=== PATIENT | female | born 1965 | race Caucasian/White ===

== ENCOUNTER 2017-04-16 15:15 | Outpatient (CLI) | payer MEDICARE ==
[~2017-04-16 15:15] MED LIST: ALBU18HF2 INH; ALBU2.5V4 NEB; ALPR1TAB2 PO; AMOX1TAB11 PO; AMPH20CA PO; ASPI-586 PO; BACL10TA PO; BACL20TA PO; BENZ0.5T3 PO; BSP10T; BSP10T PO; BUSP15TA60 PO; BUTA1TAB9 PO; CALC-656 PO; CALC-676 PO; CALC-904 PO; CALC600T PO; CELE200C PO; CETI10TA17 PO; CLON0.1T PO; DEXL60CA PO; DICY10CA12 PO; DICY20TA10 PO; DULO30CA PO; DULO60CA6 PO; ESOM40CA52 PO; FAMO-119 PO; FLUT16SP22 NS; FLUT1AER INH; FOLI-74 PO; GABA300C PO; GABA600T2 PO; GABA800T2 PO; GBPN100C PO; HYDR-3812 PO; HYDR-3816 PO; HYDR118S PO; IBUP-1773 PO; INSU100I10 SQ; INSU100I29 SC; INSU100V6; L.AC1CAP6 PO; LAMO100T PO; LAMO100T69 PO; LCT30U PO; LISI-594 PO; LISI10TA2 PO; LISI30TA5 PO; LORA2TAB PO; LOXA10CA PO; MAGN1TAB31 PO; MAGN400T39 PO; METF1000 PO; METO-333 PO; METO50TA15 PO; MONT10TA24 PO; MULT-35 PO; MULT-608 PO; MULT-963 PO; NF-ESOM40C PO; NF-ESTR1.5 PO; NFMET1000 PO; ONDA-43 PO; PANT40TA2 PO; POLY255P PO; PRD10T PO; PROP20TA5 PO; PRV20T PO; RT-ALBUINH IH; SERT50TA2 PO; SIMV10TA3 PO; SIMV20TA PO; SUCR1TAB PO; SUCR1TAB36 PO; TIOT18CA IH; TRAM50TA2 PO; TRAZ100T92 PO; TRH2T PO; UMEC62.5 INH; [UNRECOGNIZED DRUG - CODE] PO
== END 2017-04-16 17:45 | disposition home or self-care (01) ==
LOC: SLEEP 15:15
PROVIDERS: ATTEND Nurse Practitioner Community Health
DX: G47.33 Obstructive sleep apnea (adult) (pediatric) (principal)

== ENCOUNTER → 2017-04-26 | Outpatient (CLI) | payer MEDICARE | LOC: CARD 08:36 | PROVIDERS: ATTEND Internal Medicine Cardiovascular Disease | DX: R07.9 Chest pain, unspecified (principal); I10 Essential (primary) hypertension; J44.9 Chronic obstructive pulmonary disease, unspecified; E11.9 Type 2 diabetes mellitus without complications; F43.10 Post-traumatic stress disorder, unspecified | CPT/HCPCS: 93306 ==

== ENCOUNTER 2017-05-15 19:40 | Outpatient (CLI) | payer MEDICARE ==
[~2017-05-15 19:40] MED LIST changes: +ACHD5005 PO; -HYDR-3812 PO
== END 2017-05-16 06:31 | disposition home or self-care (01) ==
LOC: SLEEP 19:40
PROVIDERS: ATTEND Nurse Practitioner
DX: G47.10 Hypersomnia, unspecified (principal); G47.36 Sleep related hypoventilation in conditions classified elsewhere
CPT/HCPCS: 95810

== ENCOUNTER → 2017-05-24 | Outpatient (CLI) | payer MEDICARE ==
[~2017-05-24] VITALS: Ht 165.1 cm; Wt 50.8 kg
[~2017-05-24] MED LIST changes: +CATHETER FLUSH 10 ML SYR IV PRN; +REGADENOSON 0.4 MG/5 ML SYR (LEXISCAN) IV ONE; +meTOprolol 5 MG/5 ML (LOPRESSOR) VIAL IV ONE; +meTOprolol 5 MG/5 ML (LOPRESSOR) VIAL ONE
[2017-05-24 08:55] VITALS: BP 183/93
--- NOTE | 2017-05-24 12:29 | STRESS TEST ---
DATE OF SERVICE: 05/24/2017 LEXISCAN MYOVIEW STRESS TEST REPORT Baseline heart rate is 103. Baseline blood pressure 183/93. Baseline EKG is sinus rhythm with no ischemic changes. SUMMARY: The patient was injected with 10.61 mCi of technetium-99 Myoview and the resting images were obtained. Then, the patient received 0.4 mg of Lexiscan followed by 29.6 mCi of technetium-99 Myoview. Throughout the test, there were no EKG changes. The patient continued to be slightly tachycardic, required 5 mg of IV Lopressor injection after the test. The resting and stress images were reviewed and compared in the short axis, horizontal long axis, and vertical long axis views. Review of the images showed breast attenuation with mild decreased uptake at the mid to apical anteroseptum, which appeared to be fixed. No significant ischemia was noted. SSS is 8, SDS 1, TID value 1.14. On the gated images, the left ventricle appeared to be in normal size with mild hypokinesia at the anteroseptum. Calculated ejection fraction 65%. CONCLUSION: 1. The patient tolerated Lexiscan well. 2. Breast attenuation with fixed defect at the mid to apical anteroseptum, no significant ischemia was noted. 3. Normal left ventricular size with mild hypokinesia at the anteroseptum otherwise contractility is normal. Calculated ejection fraction 65%. Job ID: [id number] DocumentID: [id number] Dictated Date: 05/24/2017 10:29:18 Triage Register Nurse Date: 05/24/2017 12:22:43 Dictated By: LEO WALTON MD
== END ==
LOC: CARD 07:18
PROVIDERS: ATTEND Internal Medicine Cardiovascular Disease
DX: R07.9 Chest pain, unspecified (principal); I10 Essential (primary) hypertension; J44.9 Chronic obstructive pulmonary disease, unspecified; E11.9 Type 2 diabetes mellitus without complications; F43.10 Post-traumatic stress disorder, unspecified
CPT/HCPCS: 78452; 93017

== ENCOUNTER 2017-07-20 08:43 | Emergency (ER) | payer MEDICARE ==
[~2017-07-20] VITALS: Ht 160 cm; Wt 47.6 kg
[~2017-07-20 08:43] MED LIST changes: -CATHETER FLUSH 10 ML SYR IV PRN; +HYDR-34 PO; -HYDR-3816 PO; -REGADENOSON 0.4 MG/5 ML SYR (LEXISCAN) IV ONE; -meTOprolol 5 MG/5 ML (LOPRESSOR) VIAL IV ONE; -meTOprolol 5 MG/5 ML (LOPRESSOR) VIAL ONE
[2017-07-20] MEDS ORDERED: fentaNYL INJECTION 100 MCG/2 ML AMP IVP ONE (09:45)
[2017-07-20] MEDS ORDERED: ONDANSETRON 4 MG/2 ML (SDV) Z0FRAN IVP ONE (09:45)
[2017-07-20 10:19] LABS: BILIRUBIN,URINE NEGATIVE (NEGATIVE); CLARITY,URINE CLEAR; COLOR,URINE YELLOW; GLUCOSE, URINE (UA) NEGATIVE (NEGATIVE); KETONES,URINE NEGATIVE (NEGATIVE); LEUKOCYTE ESTERASE ,URINE NEGATIVE (NEGATIVE); NITRITE,URINE NEGATIVE (NEGATIVE); PH,URINE 8 (5-9); PROTEIN,URINE NEGATIVE (NEGATIVE); UROBILINOGEN,URINE NORMAL (NORMAL)
[2017-07-20 10:22] LABS: BASOPHILS % (AUTO) 0 % (0-10); EOSINOPHILS % (AUTO) 0 % (0-10); HEMATOCRIT 46 % (35-52); HEMOGLOBIN 16.7 G/DL (11.5-16.0); LYMPHOCYTES % (AUTO) 21 % (12-44); MEAN CORPUSCULAR HEMOGLOBIN 32 PG (25-34); MEAN CORPUSCULAR HGB CONC 36 G/DL (32-36); MEAN CORPUSCULAR VOLUME 88 FL (80-99); MEAN PLATELET VOLUME 9.8 FL (7.4-10.4); MONOCYTES # (AUTO) 0.5 X 10^3 (0.0-1.0); MONOCYTES % (AUTO) 5 % (0-12); NEUTROPHILS # (AUTO) 7.2 X 10^3 (1.8-7.8); NEUTROPHILS % (AUTO) 73 % (42-75); PLATELET COUNT 265 10^3/uL (130-400); RED BLOOD COUNT 5.24 10^6/uL (4.35-5.85); RED CELL DISTRIBUTION WIDTH 13.6 % (10.0-14.5); WHITE BLOOD COUNT 9.8 10^3/uL (4.3-11.0)
[2017-07-20 10:29] LABS: BACTERIA,URINE NEGATIVE /HPF; RBC,URINE RARE /HPF
[2017-07-20 10:42] LABS: ALANINE AMINOTRANSFERASE 34 U/L (0-55); ALBUMIN 4.9 GM/DL (3.2-4.5); ALKALINE PHOSPHATASE 56 U/L (40-136); BILIRUBIN,TOTAL 0.2 MG/DL (0.1-1.0); BUN/CREATININE RATIO 13; CALCIUM 10.2 MG/DL (8.5-10.1); CARBON DIOXIDE 26 MMOL/L (21-32); CHLORIDE 97 MMOL/L (98-107); GFR ESTIMATED > 60; GLUCOSE 97 MG/DL (70-105); LIPASE 25 U/L (8-78); POTASSIUM 5.6 MMOL/L (3.6-5.0); SODIUM 132 MMOL/L (135-145); TOTAL PROTEIN 7.8 GM/DL (6.4-8.2)
[2017-07-20] MEDS ORDERED: NS IV 1000 ML 1,000 ML IV SCH (10:46)
--- NOTE | 2017-07-20 11:39 | ED Abdominal Pain ---
General Chief Complaint: Abdominal/GI Problems Stated Complaint: STOMACH CRAMPS Nursing Triage Note: AMB TO ROOM C/O ABD CRAMPING ONSET THIS AM. NO VOMITNG OR DIARRHEA. Sepsis Screen: No Definite Risk Source of Information: Patient Exam Limitations: No Limitations History of Present Illness Date Seen by Provider: Jul 20, 2017 Time Seen by Provider: 09:17 Initial Comments This 51-year-old woman presents to the emergency room with abdominal pain and cramping since about 04:00. She has had pain in the left upper quadrant for about a week that worsens with eating and radiates to the epigastrium after eating. She has a known history of gastritis. Pain became much more intense after 04:00. She ate some Cheerios and that worsened her pain. She has nausea without vomiting. Her last bowel movement was this morning and was loose. She specifically states that coffee worsens her pain. She denies any drug or alcohol use but does smoke tobacco. She reports gastritis was diagnosed by EGD in October of last year. Her surgeon is Dr. Garay and her primary care provider is Zeyad Gavin. Allergies and Home Medications Allergies Coded Allergies: Penicillins (Verified Allergy, Unknown, 03/12/17) cefdinir (Verified Allergy, Unknown, 03/12/17) diphenhydramine (Verified Allergy, Unknown, 03/12/17) latex (Verified Allergy, Unknown, 03/12/17) propoxyphene napsylate (Unverified Allergy, Unknown, 07/06/12) Home Medications Albuterol Sulfate 2.5 Mg/3 Ml Vial.neb, 2.5 MG NEB Q4H PRN for SHORTNESS OF BREATH, (Reported) Albuterol Sulfate 18 Gm Hfa.aer.ad, 2 PUFF INH Q4H PRN for SHORTNESS OF BREATH, (Reported) Aspirin 81 Mg Tablet.dr, 81 MG PO DAILY Prescribed by: CÉSAR IZQUIERDO on 03/13/17 1118 Baclofen 20 Mg Tablet, 20 MG PO 0800,1500,2100, (Reported) Benztropine Mesylate 0.5 Mg Tablet, 0.5 MG PO 0800,1600, (Reported) Buspirone HCl 15 Mg Tablet, 15 MG PO 0800,1500,2100, (Reported) Butalb/Acetaminophen/Caffeine 1 Each Tablet, 1 TAB PO Q6H PRN for HEADACHE, ( Reported) Calcium Carbonate/Vitamin D3 1 Each Tablet, 1 TAB PO DAILY, (Reported) Cetirizine HCl 10 Mg Tablet, 10 MG PO DAILY, (Reported) Clonidine HCl 0.1 Mg Tablet, 0.1 MG PO 0800,1500,2100, (Reported) Dextroamphetamine/Amphetamine 20 Mg Cap.er.24h, 20 MG PO DAILY, (Reported) Dicyclomine HCl 20 Mg Tablet, 20 MG PO QID, (Reported) Esomeprazole Magnesium 40 Mg Capsule.dr, 40 MG PO DAILY, (Reported) Fluticasone Propionate 16 Gm [place].susp, 2 SPRAY NS DAILY, (Reported) Fluticasone/Vilanterol 1 Each Blst.w.dev, 1 PUFF INH DAILY, (Reported) Folic Acid/Mv,Fe,Other Min 1 Each Tablet, 1 TAB PO DAILY, (Reported) Gabapentin 800 Mg Tablet, 800 MG PO 0800,1500,2100, (Reported) Hydrocodone Bit/Acetaminophen 1 Each Tablet, 1 TAB PO TID PRN for PAIN-MODERATE, (Reported) Ibuprofen 600 Mg Tablet, 600 MG PO 0800,1400,1800, (Reported) Insulin Detemir 100 Unit/1 Ml Insuln.pen, 7 UNITS SC HS, (Reported) L.acidoph & Paracasei,B.lactis 1 Each Capsule, 1 CAP PO DAILY, (Reported) Lamotrigine 100 Mg Tablet, 100 MG PO BID, (Reported) Lisinopril 30 Mg Tablet, 30 MG PO DAILY, (Reported) Lorazepam 2 Mg Tablet, 2 MG PO 0800,1200,1600, (Reported) Loxapine Succinate 10 Mg Capsule, 10 MG PO BID, (Reported) Magnesium Carbonate/Al Hydrox 1 Each Tab.chew, 4 TAB.CHEW PO ACHS, (Reported) Magnesium Oxide 400 Mg Tablet, 400 MG PO DAILY, (Reported) Metformin HCl 1,000 Mg Tablet, 1,000 MG PO BID WITH MEALS, (Reported) Metoprolol Tartrate 50 Mg Tablet, 50 MG PO BID Prescribed by: CÉSAR IZQUIERDO on 03/13/17 1118 Montelukast Sodium 10 Mg Tablet, 10 MG PO HS, (Reported) Polyethylene Glycol 3350 255 Gm Powder, 17 GM PO DAILY, (Reported) Simvastatin 10 Mg Tablet, 10 MG PO 1800, (Reported) Trazodone HCl 100 Mg Tablet, 100 MG PO HS, (Reported) Umeclidinium [place] 62.5 Mcg Blst.w.dev, 1 PUFF INH DAILY, (Reported) Patient Home Medication List Home Medication List Reviewed: Yes Review of Systems Constitutional: no symptoms reported EENTM: No Symptoms Reported Respiratory: No Symptoms Reported Cardiovascular: No Symptoms Reported Gastrointestinal: See HPI Genitourinary: No Symptoms Reported Musculoskeletal: no symptoms reported Skin: no symptoms reported Psychiatric/Neurological: No Symptoms Reported Endocrine: No Symptoms Reported Past Yshadfl-Dldvdn-Sifrje Hx Patient Social History Alcohol Use: Denies Use Recreational Drug Use: No (SMOKES 1 PPD) Smoking Status: Current Everyday Smoker Type Used: Cigarettes Recent Foreign Travel: No Contact w/Someone Who Travel: No Recent Infectious Disease Expo: No Recent Hopitalizations: No Immunizations Up To Date Tetanus Booster (TDap): Unknown Date of Pneumonia Vaccine: Jun 26, 2012 Date of Influenza Vaccine: Jul 07, 2012 Seasonal Allergies Seasonal Allergies: Yes Surgeries History of Surgeries: Yes (c/s x3, bilat knee scope, breast bx, bilat ankle sx , right foot fx, ) Surgeries: Abdominal (EGD and colonoscopy), Section, Hysterectomy, Orthopedic (back and neck fusions with hardware, bilateral knees, right foot) Respiratory History of Respiratory Disorde: Yes Respiratory Disorders: Asthma, Chronic Bronchitis, COPD Currently Using CPAP: No Currently Using BIPAP: No Cardiovascular History of Cardiac Disorders: Yes Cardiac Disorders: High Cholesterol, Hypertension Neurological History of Neurological Disord: Yes (neuropathy hands/feet, fibromyalgia, Hayes' s palsy) Neurological Disorders: Neuropathy 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 System Hx 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: No Female 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: 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 Genitourinary History of Genitourinary Disor: No Gastrointestinal History of Gastrointestinal Di: Yes (gastritis ) Gastrointestinal Disorders: Abdominal Hernia, Gastroesophageal Reflux, Irritable Bowel Musculoskeletal History of Musculoskeletal Dis: Yes Musculoskeletal Disorders: Degenerate Disk Disease, Osteoporosis, Arthritis, Fibromyalgia, Rheumatoid Arthritis Endocrine History of Endocrine Disorders: Yes Endocrine Disorders: Diabetes, Insulin dep HEENT History of HEENT Disorders: Yes HEENT Disorders: Cataract Loss of Vision: Denies Hearing Impairment: Hard of Hearing Cancer History of Cancer: No Psychosocial History of Psychiatric Problem: Yes Behavioral Health Disorders: ADD/ADHD, Anxiety, Bipolar, Depression Integumentary History of Skin or Integumenta: No Blood Transfusions History of Blood Disorders: No Family Medical History Significant Family History: No Pertinent Family Hx Physical Exam Vital Signs VS - Last 72 Hours, by Label 07/20/17 08:48 Temp 98.0 Pulse 80 Resp 18 B/P (MAP) 152/87 (108) Pulse Ox 98 Capillary Refill : Less Than 3 Seconds General Appearance: WD/WN, no apparent distress, thin HEENT: PERRL/EOMI, normal ENT inspection Neck: normal inspection Respiratory: lungs clear, normal breath sounds, no respiratory distress, no accessory muscle use Cardiovascular: regular rate, rhythm, no edema, no murmur Gastrointestinal: normal bowel sounds, soft, distended, tenderness (diffuse be most prominent on the left upper quadrant and suprapubic regions) Extremities: normal inspection, no pedal edema 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, no motor/sensory deficits, alert, normal mood/affect, oriented x 3 Skin: normal color, warm/dry Progress/Results/Core Measures Results/Orders Lab Results Laboratory Tests Test 07/20/17 09:42 07/20/17 10:10 Range/Units Urine Color YELLOW Urine Clarity CLEAR Urine pH 8 5-9 Urine Specific [place] 1.015 L 1.016-1.022 Urine Protein NEGATIVE NEGATIVE Urine Glucose (UA) NEGATIVE NEGATIVE Urine Ketones NEGATIVE NEGATIVE Urine Nitrite NEGATIVE NEGATIVE Urine Bilirubin NEGATIVE NEGATIVE Urine Urobilinogen NORMAL NORMAL MG/DL Urine Leukocyte Esterase NEGATIVE NEGATIVE Urine RBC (Auto) NEGATIVE NEGATIVE Urine RBC RARE /HPF Urine WBC NONE /HPF Urine Squamous Epithelial Cells 5-10 /HPF Urine Crystals NONE /LPF Urine Bacteria NEGATIVE /HPF Urine Casts NONE /LPF Urine Mucus NEGATIVE /LPF Urine Culture Indicated NO White Blood Count 9.8 4.3-11.0 10^3/uL Red Blood Count 5.24 4.35-5.85 10^6/uL Hemoglobin 16.7 H 11.5-16.0 G/DL Hematocrit 46 35-52 % Mean Corpuscular Volume 88 80-99 FL Mean Corpuscular Hemoglobin 32 25-34 PG Mean Corpuscular Hemoglobin Concent 36 32-36 G/DL Red Cell Distribution Width 13.6 10.0-14.5 % Platelet Count 265 130-400 10^3/uL Mean Platelet Volume 9.8 7.4-10.4 FL Neutrophils (%) (Auto) 73 42-75 % Lymphocytes (%) (Auto) 21 12-44 % Monocytes (%) (Auto) 5 0-12 % Eosinophils (%) (Auto) 0 0-10 % Basophils (%) (Auto) 0 0-10 % Neutrophils # (Auto) 7.2 1.8-7.8 X 10^3 Lymphocytes # (Auto) 2.0 1.0-4.0 X 10^3 Monocytes # (Auto) 0.5 0.0-1.0 X 10^3 Eosinophils # (Auto) 0.0 0.0-0.3 10^3/uL Basophils # (Auto) 0.0 0.0-0.1 10^3/uL Sodium Level 132 L 135-145 MMOL/L Potassium Level 5.6 H 3.6-5.0 MMOL/L Chloride Level 97 L 98-107 MMOL/L Carbon Dioxide Level 26 21-32 MMOL/L Anion Gap 9 5-14 MMOL/L Blood Urea Nitrogen 8 7-18 MG/DL Creatinine 0.60 0.60-1.30 MG/DL Estimat Glomerular Filtration Rate > 60 BUN/Creatinine Ratio 13 Glucose Level 97 70-105 MG/DL Calcium Level 10.2 H 8.5-10.1 MG/DL Total Bilirubin 0.2 0.1-1.0 MG/DL Aspartate Amino Transf (AST/SGOT) 28 5-34 U/L Alanine Aminotransferase (ALT/SGPT) 34 0-55 U/L Alkaline Phosphatase 56 40-136 U/L C-Reactive Protein High Sensitivity 0.03 0.00-0.50 MG/DL Total Protein 7.8 6.4-8.2 GM/DL Albumin 4.9 H 3.2-4.5 GM/DL Lipase 25 8-78 U/L My Orders Orders - JOVANY LOU MD Cbc With Automated Diff (07/20/17 09:36) Comprehensive Metabolic Panel (07/20/17 09:36) Hs C Reactive Protein (07/20/17 09:36) Lipase (07/20/17 09:36) Ua Culture If Indicated (07/20/17 09:36) Saline Lock/Iv-Start (07/20/17 09:36) Ondansetron Injection (Zofran Injectio (07/20/17 09:45) Fentanyl Injection (Sublimaze Injection (07/20/17 09:45) Ns Iv 1000 Ml (Sodium Chloride 0.9%) (07/20/17 10:46) Abdomen, Flat & Upright/Decub (07/20/17 10:47) Ketorolac Injection (Toradol Injection) (07/20/17 12:15) Medications Given in ED Current Medications Medications Dose Ordered Sig/Brice Route Start Time Stop Time Status Last Admin Dose Admin Fentanyl Citrate 50 mcg ONCE ONCE IVP 07/20/17 09:45 07/20/17 09:46 DC 07/20/17 10:18 50 MCG Ondansetron HCl 4 mg ONCE ONCE IVP 07/20/17 09:45 07/20/17 09:46 DC 07/20/17 10:18 4 MG Vital Signs/I&O Vital Sign - Last 12Hours 07/20/17 08:48 Temp 98.0 Pulse 80 Resp 18 B/P (MAP) 152/87 (108) Pulse Ox 98 Blood Pressure Mean: 108 Progress Note : Progress Note Based on labs patient was felt to be a little dry. Potassium and calcium were elevated. Sodium was slightly low. She was given a liter of normal saline IV hydration. Pain was initially treated with fentanyl and pain nearly resolved. X-ray suggested constipation. This would fit with her clinical presentation as well. She uses hydrocodone regularly and has for the last 2 years. I suspect she has narcotic induced constipation. She was offered Relistor injection but declined. She prefers to increase her MiraLAX usage to 3 times daily until she produces a good bowel movement. I advised her to reduce her ibuprofen and hydrocodone use is much as possible. Toradol was given prior to dismissal as an alternative to her oral medications for treatment of pain today. Diagnostic Imaging Diagonstic Imaging: Xray Plain Films/CT/US/NM/MRI: abdomen, pelvis Comments X-ray of the abdomen and pelvis viewed by me and report reviewed. See report below: NAME: VERONICA RODRIGUEZ MED REC#: [id number] PT STATUS: REG ER : 1965 PHYSICIAN: JOVANY LOU MD ADMIT DATE: 07/20/17/ER Draft Date of Exam:07/20/17 ABDOMEN, FLAT & UPRIGHT/DECUB INDICATION: Abdominal pain. Supine upright abdominal films are obtained. FINDINGS: Upright view shows no evidence of free air. The abdominal bowel gas pattern is unremarkable. There is prominent stool throughout the colon. There are postop changes with fusion at L5-S1. IMPRESSION: Prominent stool throughout the colon. No overt obstruction or ileus. No evidence of free intraperitoneal air. Dictated on workstation # [id number] Dict: 07/20/17 1146 Trans: 07/20/17 1159 [id number] Interpreted by: LACEY GIL MD Departure Impression Impression: Primary Impression: Constipation Qualified Codes: K59.00 - Constipation, unspecified Additional Impressions: Abdominal pain Qualified Codes: R10.84 - Generalized abdominal pain Hyperkalemia Disposition: HOME, SELF-CARE Condition: Improved Departure-Patient Inst. Decision time for Depature: 12:13 Referrals: [facility] [place]Family) Primary Care Physician Patient Instructions: Acute Abdomen (Belly Pain), Adult (DC), Constipation, Adult (DC) Add. Discharge Instructions: Consume a clear liquid diet only for the remainder of the day and preferably until you produce a couple of good bowel movements. Increase your MiraLAX to 3 doses per day until you produce a couple of good bowel movements. Try to minimize both your ibuprofen and hydrocodone as much as possible. Ibuprofen can irritate your gastritis, and hydrocodone can worsen constipation. Follow- up with your primary care provider as soon as possible. Return to the emergency room if symptoms worsen. After constipation resolves, eat a diet high in fruits, vegetables, whole grains, and other high fiber foods. Avoid excessive meats, cheeses, processed foods, and fast foods as they may worsen constipation. All discharge instructions reviewed with patient and/or family. Voiced understanding. JOVANY LOU MD Jul 20, 2017 11:39
--- NOTE | 2017-07-20 11:59 | Diagnostic Imaging Report ---
INDICATION: Abdominal pain. Supine upright abdominal films are obtained. FINDINGS: Upright view shows no evidence of free air. The abdominal bowel gas pattern is unremarkable. There is prominent stool throughout the colon. There are postop changes with fusion at L5-S1. IMPRESSION: Prominent stool throughout the colon. No overt obstruction or ileus. No evidence of free intraperitoneal air. Dictated by: Dictated on workstation # [id number]
[2017-07-20] MEDS ORDERED: KETOROLAC 30 MG/ML VIAL IVP ONE (12:15)
[2017-07-20 12:40] VITALS: BP 143/78
== END 2017-07-20 12:39 | disposition home or self-care (01) ==
LOC: EDUNIT# 08:43 → ER 08:44
DX: K59.00 Constipation, unspecified (principal); E87.5 Hyperkalemia; F41.9 Anxiety disorder, unspecified; F31.9 Bipolar disorder, unspecified; F90.9 Attention-deficit hyperactivity disorder, unspecified type; E11.40 Type 2 diabetes mellitus with diabetic neuropathy, unspecified; M06.9 Rheumatoid arthritis, unspecified; K21.9 Gastro-esophageal reflux disease without esophagitis; E78.00 Pure hypercholesterolemia, unspecified; I10 Essential (primary) hypertension; J44.9 Chronic obstructive pulmonary disease, unspecified; F17.210 Nicotine dependence, cigarettes, uncomplicated; Z87.59 Personal history of other complications of pregnancy, childbirth and the puerperium; Z79.82 Long term (current) use of aspirin; Z79.4 Long term (current) use of insulin; Z90.710 Acquired absence of both cervix and uterus; Z88.0 Allergy status to penicillin; Z88.1 Allergy status to other antibiotic agents; Z91.040 Latex allergy status
CPT/HCPCS: 36415; 74019; 80053; 81000; 83690; 85025; 86141; 96361; 96374; 96375

== ENCOUNTER → 2017-08-16 | Outpatient (CLI) | payer MEDICARE ==
--- NOTE | 2017-08-16 17:43 | Diagnostic Imaging Report ---
INDICATION: Routine screening. Comparison is made with prior exam from 06/11/2011. The current study was also evaluated with a Computer Aided Detection (CAD) system. FINDINGS: Both breasts demonstrate marked parenchymal heterogeneity and increased density, limiting the sensitivity of mammography. Numerous microcalcifications are scattered throughout both breasts, similar to prior exam and limiting the sensitivity of mammography. There is a biopsy clip in medial aspect of the right breast posterior depth, perhaps owing to prior biopsy. Patient did have a cluster of microcalcifications in the medial right breast on prior study from 2011. There is an increasing cluster in the inferior right breast posterior depth. These are more posterior and more inferior to the biopsy clip. These appear to be more laterally located on the tomographic images. Magnification and ML views are recommended. Exaggerated CC views are also recommended. Left breast appears stable. The axillae are unremarkable. IMPRESSION: Increasing cluster of microcalcifications inferior and posterior right breast which may be laterally located. Magnification, ML and exaggerated CC views are recommended for further evaluation. ACR BI-RADS Category 0: Incomplete. (Needs additional imaging evaluation). Result letter will be mailed to the patient. Note: At least 10% of breast cancer is not imaged by mammography. Dictated by: Dictated on workstation # [id number]
== END ==
LOC: RAD 14:37
PROVIDERS: ATTEND Nurse Practitioner Community Health
DX: Z12.31 Encounter for screening mammogram for malignant neoplasm of breast (principal)
CPT/HCPCS: 77067

== ENCOUNTER → 2017-10-05 | Outpatient (CLI) | payer MEDICARE ==
[~2017-10-05] MED LIST changes: -BENZ0.5T3 PO; +BENZ0.5T42 PO; -METF1000 PO; +METF10002 PO
[2017-10-05 08:02] LABS: ALBUMIN 4.6 GM/DL (3.2-4.5); BILIRUBIN,DIRECT 0.1 MG/DL (0.0-0.3); BILIRUBIN,INDIRECT 0.2 MG/DL; BILIRUBIN,TOTAL 0.3 MG/DL (0.1-1.0); TOTAL PROTEIN 6.9 GM/DL (6.4-8.2)
== END ==
LOC: LAB 07:28
PROVIDERS: ATTEND Family Medicine
DX: R07.9 Chest pain, unspecified (principal); I10 Essential (primary) hypertension; E11.9 Type 2 diabetes mellitus without complications; J44.9 Chronic obstructive pulmonary disease, unspecified; F43.10 Post-traumatic stress disorder, unspecified
CPT/HCPCS: 36415; 80061; 80076

== ENCOUNTER 2017-11-18 06:46 | Emergency (ER) | payer MEDICARE ==
[~2017-11-18] VITALS: Ht 162.6 cm; Wt 49.9 kg
[~2017-11-18 06:46] MED LIST changes: +TRAZ-190 PO; -TRAZ100T92 PO
--- OUTSIDE RECORDS SUMMARY | 2017-11-18 07:00 | XMS REPORT ---
Author Author JOHANN YVON Organization [facility] Address [address] [place] [address] Care Team Providers Care Exercise Specialist Name Role Phone KYE WILLSA Unavailable PROBLEMS Type Condition ICD9-CM Code PQN08-DB Code Onset Dates Condition Status SNOMED Code Problem GERD (gastroesophageal reflux disease) K21.9 Active 238421659 Problem Back pain M54.9 Active 978970823 Problem Diabetes E11.9 Active 65080043 Problem Hypertension I10 Active 97950245 Problem Anxiety disorder, unspecified F41.9 Active 499708000 Problem Other bipolar disorder F31.89 Active 93885101 Problem Fibromyalgia M79.7 Active 19402341 Problem Moderate persistent asthma without complication J45.40 Active 847603673 Problem Panic disorder with agoraphobia F40.01 Active 68937000 Problem Panlobular emphysema J43.1 Active 5000322 Problem Chronic obstructive pulmonary disease, unspecified J44.9 Active 68964180 Problem Akathisia G25.71 Active 230363535 Problem Fibrocystic disease of left breast N60.12 Active 17937556 Problem Migraine without aura and without status migrainosus, not intractable G43.009 Active 734730571 Problem Essential tremor G25.0 Active 151327843 Problem Schizoaffective disorder, bipolar type F25.0 Active 44458081 Problem Other chronic pain G89.29 Active 95235557 Problem Lumbago with sciatica, right side M54.41 Active 856059244 Problem Lumbago with sciatica, left side M54.42 Active 321211069 Problem Arthritis M19.90 Active 8359406 Problem Fibrocystic disease of right breast N60.11 Active 76148824 Problem Irritable bowel syndrome with both constipation and diarrhea K58.2 Active 14951275 Problem Irritable bowel syndrome with constipation K58.1 Active 594065320 Problem Bipolar affective disorder, remission status unspecified F31.9 Active 21196101 Problem Attention deficit hyperactivity disorder (ADHD), predominantly inattentive type F90.0 Active 26786322 Problem Bipolar 1 disorder, depressed, moderate F31.32 Active 18988420 Problem Chronic post-traumatic stress disorder (PTSD) F43.12 Active 631307744 Problem Bipolar 1 disorder, depressed, partial remission F31.75 Active 08383419 Problem Mild persistent asthma without complication J45.30 Active 497072483 Problem Bipolar I disorder with depression F31.9 Active 60583527 Problem Acute non-recurrent maxillary sinusitis J01.00 Active 70342184 ALLERGIES No Information ENCOUNTERS Encounter Location Date Diagnosis [facility] [id number] [place] [address] 26897- 1313 12 Nov, 2017 [facility] [address] 38612- 8884 Oct, [facility] [address] 71318- 4131 Oct, [facility] [address] 87048- 6967 Oct, [facility] [id number] [place] [address] 18901- 6692 Oct, [facility] [address] 88373- 6651 Oct, [facility] [id number] [place] [address] 99969- 1652 Oct, [facility] [id number] [place] [address] 98748- 6729 Oct, [facility] [id number] [place] [address] 63243- 3839 September, Frequent headaches R51 [facility] [address] 39332- 2207 September, Bilateral otitis media with effusion H65.93 ; Dizziness R42 and Essential tremor G25.0 [facility] [id number] [place] [address] 33247- 2173 September, Chronic obstructive pulmonary disease, unspecified COPD type J44.9 [facility] [id number] [place] [address] 40674- 8094 September, Chronic obstructive pulmonary disease, unspecified COPD type J44.9 [facility] [id number] [place] [address] 38294- 0334 September, Migraine without aura and without status migrainosus, not intractable G43.009 [facility] [id number] [place] [address] 31639- 7367 September, [facility] [id number] [place] [address] 40321- 3833 September, [facility] [id number] [place] [address] 71246- 3960 September, [facility] [id number] [place] [address] 39833- 6357 September, Frequent headaches R51 [facility] [id number] [place] [address] 94336- 0778 Aug, [facility] [id number] [place] [address] 49922- 0597 Aug, Breast mass, right N63.10 [facility] [id number] [place] [address] 18705- 7872 Aug, Breast lump N63.0 [facility] [id number] [place] [address] 50381- 4039 Aug, [facility] [id number] [place] [address] 41593- 8740 Aug, Bipolar affective disorder, remission status unspecified F31.9 and Diabetes E11.9 [facility] [id number] [place] [address] 37198- 0790 Aug, Diabetes E11.9 ; Schizoaffective disorder, bipolar type F25.0 ; Pharyngitis due to other organism J02.8 ; Panlobular emphysema J43.1 and Irritable bowel syndrome with both constipation and diarrhea K58.2 [facility] [id number] [place] [address] 15912- 8743 Aug, Abnormal mammogram R92.8 [facility] [id number] [place] [address] 68014- 3780 Aug, [facility] [id number] [place] [address] 66452- 6875 Aug, Bipolar 1 disorder, depressed, moderate F31.32 ; Panic disorder with agoraphobia F40.01 and Chronic post-traumatic stress disorder ( PTSD) F43.12 [facility] [address] 61774- 8594 Aug, [facility] [id number] [place] [address] 26000- 3271 Aug, [facility] [address] 29027- 9757 Aug, [facility] [id number] [place] [address] 75767- 1691 Jul, [facility] [id number] [place] [address] 63085- 1370 Jul, Mild persistent asthma without complication J45.30 [facility] [id number] [place] [address] 81003- 5016 Jul, Mild persistent asthma without complication J45.30 [facility] [id number] [place] [address] 53830- 4977 15 Jul, 2017 Bipolar affective disorder, remission status unspecified F31.9 ; Diabetes E11.9 and Irritable bowel syndrome with constipation K58.1 [facility] [id number] [place] [address] 16347- 6685 Jul, [facility] [id number] [place] [address] 09209- 8690 Jul, [facility] [address] [place] [address]- 6575 08 Jul, 2017 Frequent headaches R51 [facility] [id number] [place] [address] 63521- 4002 Jul, [facility] [id number] [place] [address] 75981- 1897 Jul, [facility] [id number] [place] [address] 51939- 3983 Jul, [facility] [id number] [place] [address] 51422- 2201 Jul, Frequent headaches R51 ; Fibrocystic disease of left breast N60.12 ; Fibrocystic disease of right breast N60.11 and Diabetes E11.9 [place] [id number] [place] [address] 13914- 4033 Jul, [place] [id number] [place] [address] 56225- 8218 Jul, [place] [id number] [place] [address] 35310- 2106 Jun, Exudative tonsillitis J03.90 [place] [facility] [id number] [place] [address] 05844- 7993 Jun, [place] [id number] [place] [address] 97981- 3896 Jun, [place] [id number] [place] [address] 00774- 9073 15 Jun, 2017 Mild persistent asthma without complication J45.30 ; Chronic obstructive pulmonary disease, unspecified COPD type J44.9 and Exudative tonsillitis J03.90 [place] [id number] [place] [address] 25159- 7843 13 Jun, 2017 Encounter for immunization Z23 [place] [facility] [id number] [place] [address] 42069- 6508 Jun, [place] [address] [address]- 7442 Jun, [facility] [id number] [place] [address] 19551- 8071 Jun, [facility] [id number] [place] [address] 24860 -9178 Jun, Tonsillitis J03.90 [facility] [id number] [place] [address] 23410- 6082 Jun, [facility] [id number] [place] [address] 32544- 7918 Jun, Acute non-recurrent maxillary sinusitis J01.00 [facility] [id number] [place] [address] 81573- 1165 Jun, [facility] [address] 59814- 6336 May, [facility] [id number] [place] [address] 59315- 5743 May, [facility] [id number] [place] [address] 17619- 1976 May, GERD (gastroesophageal reflux disease) K21.9 [facility] [id number] [place] [address] 38198- 3179 May, Migraine without aura and without status migrainosus, not intractable G43.009 [facility] [id number] [place] [address] 47533- 5545 May, [facility] [id number] [place] [address] 27072- 7868 May, [facility] [id number] [place] [address] 31187- 6641 May, Panlobular emphysema J43.1 and Acute non-recurrent maxillary sinusitis J01.00 [facility] [address] [place] [address] 26197- 3207 May, Bipolar 1 disorder, depressed, moderate F31.32 ; Panic disorder with agoraphobia F40.01 and Akathisia G25.71 [place] [address] 16073- 8906 Apr, [place] [address] 66643- 1421 Apr, [place] [address] 99954- 8201 Apr, Acute non-recurrent maxillary sinusitis J01.00 [place] [address] 68383- 0790 Apr, Panlobular emphysema J43.1 [place] [address] 81504- 7161 Apr, [facility] [place] [address] 54472 -5757 Apr, Exudative tonsillitis J03.90 and Sore throat J02.9 [place] [address] 76555- 2194 Mar, [place] [address] 20270- 3592 15 Mar, 2017 Acute non-recurrent maxillary sinusitis J01.00 [place] [address] 83653- 1482 Mar, [place] [address] 72310- 1584 Mar, Panlobular emphysema J43.1 and Diabetes E11.9 [place] [address] 35915- 0708 06 Mar, 2017 [facility] [address] 23728 -8133 24 Oct, 2017 Wheezing R06.2 and Acute recurrent pansinusitis J01.41 [facility] [id number] [place] [address] 65102- 3584 Feb, [facility] [id number] [place], [place] [address] 498 16 Feb, 2017 Acute non-recurrent maxillary sinusitis J01.00 [facility] [id number] [place] [address] 531123- 2527 16 Feb, 2017 Chronic obstructive pulmonary disease, unspecified J44.9 [facility] [id number] [place] [address] 8104 Feb, Hypoxemia R09.02 and Chronic obstructive pulmonary disease, unspecified J44.9 [facility] [id number] [place] [address] 00309- 3016 28 Jan, 2017 Bipolar 1 disorder, depressed, moderate F31.32 ; Panic disorder with agoraphobia F40.01 ; Chronic post-traumatic stress disorder (PTSD ) F43.12 ; Diabetes E11.9 and Moderate persistent asthma without complication J45.40 [facility] [id number] [place] [address] 99496- 4753 22 Jan, 2017 [facility] [id number] [place] [address] 687171- 0376 19 Jan, 2017 Acute non-recurrent maxillary sinusitis J01.00 [facility] [id number] [place] [address] 47266- 3406 18 Jan, 2017 [facility] [id number] [place] [address] 51990- 2542 18 Jan, 2017 [facility] [id number] [place] [address] 45769- 8990 12 Jan, 2017 Moderate persistent asthma without complication J45.40 and Hypoxemia R09.02 [facility] [id number] [place] [address] 07178- 254 11 Jan, 2017 Moderate persistent asthma without complication J45.40 and Hypoxemia R09.02 [place] [address] [address]- 2809 Jan, [facility] [id number] [place] [address] 58183- 4092 Dec, Acute non-recurrent maxillary sinusitis J01.00 [facility] [id number] [place] [address] 75993- 0606 Dec, Chronic obstructive pulmonary disease, unspecified J44.9 [facility] [id number] [place] [address] 81649- 0023 Dec, [facility] [id number] [place] [address] 01881- 5895 Dec, Mild persistent asthma without complication J45.30 and Other chronic pain G89.29 [place] [id number] [place] [address] 31244- 3745 Nov, [facility] [id number] [place] [address] 62161- 0376 Nov, Acute non-recurrent maxillary sinusitis J01.00 [facility] [id number] [place] [address] 96311- 9082 Nov, [facility] [id number] [place] [address] 34762- 9154 Nov, [facility] [id number] [place] [address] 94189- 6130 Oct, [facility] [id number] [place] [address] 05407- 4825 Oct, Bipolar 1 disorder, depressed, partial remission F31.75 ; Panic disorder with agoraphobia F40.01 and Chronic post-traumatic stress disorder (PTSD) F43.12 [facility] [address] [address]- 6505 Oct, Acute non-recurrent maxillary sinusitis J01.00 [facility] [id number] [place] [address] 49396- 3594 Oct, [facility] [address] [place] [address] 72881- 0353 Oct, Diabetes E11.9 [facility] [id number] [place] [address] 07657- 9877 September, Diabetes E11.9 [facility] [id number] [place] [address] 93113- 6465 September, Diabetes E11.9 and Sinus tachycardia R00.0 [facility] [id number] [place] [address] 68179- 2589 September, [facility] [id number] [place] [address] 81664- 0363 September, [facility] [id number] [place] [address] 08493- 5796 Aug, Diabetes E11.9 and Lumbago with sciatica, right side M54.41 [facility] [id number] [place] [address] 62777- 2246 Aug, [facility] [id number] [place] [address] 30311- 7328 30 Jul, 2016 Bipolar 1 disorder, depressed, moderate F31.32 ; Panic disorder with agoraphobia F40.01 and Chronic post-traumatic stress disorder ( PTSD) F43.12 [facility] [id number] [place] [address] 17220- 0333 Jul, Sore throat J02.9 [facility] [id number] [address]- 3346 Jul, [facility] [id number] [place] [address] 62451- 0322 Jul, [facility] [id number] [place] [address] 97926- 3809 09 Jul, 2016 [facility] [id number] [place] [address] 15939- 7156 Jul, [facility] [address] [address]- 1711 Jul, Sore throat J02.9 and Pharyngitis, unspecified etiology J02.9 [facility] [id number] [address]- 6679 Jun, [facility] [id number] [place] [address] 80620- 3750 Jun, Diabetes E11.9 [facility] [id number] [place] [address] 48934- 5401 Jun, [facility] [id number] [place] [address] 44154- 6951 Jun, [facility] [id number] [place] [address] 12291- 0677 Jun, [facility] [id number] [place] [address] 49697- 5441 Jun, [facility] [id number] [place] [address] 30902- 2519 Jun, [facility] [id number] [place] [address] 62142- 4612 Jun, [facility] [id number] [place] [address] 57493- 7978 Jun, [facility] [address] [place] [address] 37446- 2433 Jun, [facility] [id number] [place] [address] 04116- 7218 May, Diabetes E11.9 ; Other chronic pain G89.29 ; Acute recurrent maxillary sinusitis J01.01 ; Bipolar I disorder with depression F31.9 and Anxiety disorder, unspecified F41.9 [facility] [address] [place] [address] 00208- 2675 May, [place] [address] [place] [address] 16074- 5347 May, Diabetes E11.9 ; Bipolar I disorder with depression F31.9 ; Anxiety disorder, unspecified F41.9 ; Other chronic pain G89.29 and Acute recurrent maxillary sinusitis J01.01 [place] [id number] [place] [address] 69708- 9369 May, [place] [id number] [place] [address] 69182- 4572 May, Attention deficit hyperactivity disorder (ADHD), predominantly inattentive type F90.0 [place] [id number] [place] [address] 97543- 5980 May, [place] [id number] [place] [address] 49424- 3259 Apr, Attention deficit hyperactivity disorder (ADHD), predominantly inattentive type F90.0 and Non-seasonal allergic rhinitis due to other allergic trigger J30.89 [place] [id number] [place] [address] 13923- 2811 15 Apr, 2016 Bipolar 1 disorder, depressed, moderate F31.32 ; Panic disorder with agoraphobia F40.01 and Chronic post-traumatic stress disorder ( PTSD) F43.12 [place] [id number] [place] [address] 17612- 2607 06 Apr, 2016 Dental examination Z01.20 [place] [id number] [place] [address] 39800- 7330 Mar, [place] [id number] [place] [address] 83964- 3406 Mar, [place] [id number] [place] [address] 67100- 4484 17 Mar, 2016 Bipolar I disorder with depression F31.9 and Anxiety disorder, unspecified F41.9 [place] [id number] [place] [address] 47729- 7456 08 Mar, 2016 Panic disorder with agoraphobia F40.01 ; Bipolar 1 disorder , depressed, moderate F31.32 and Chronic post-traumatic stress disorder (PTSD) F43.12 [place] [address] 47576- 5804 Mar, [place] [address] 63095- 8799 Mar, Dental caries K02.9 [place] [address] 62990- 6629 24 Feb, 2016 Lumbago with sciatica, left side M54.42 ; Lumbago with sciatica, right side M54.41 and Other chronic pain G89.29 [place] [address] 41736- 5428 17 Feb, 2016 [place] [address] 97095- 4542 14 Feb, 2016 [place] [address] 50401- 3529 13 Feb, 2016 Bipolar I disorder with depression F31.9 ; PTSD (post- traumatic stress disorder) F43.10 and Mood disorder F39 [place] [id number] [place] [address] 36528- 3168 13 Feb, 2016 [place] [address] 12615- 6114 Feb, Dental examination Z01.20 [place] [address] 47460- 8576 07 Feb, 2016 [facility] [address] 88136 -0104 03 Feb, 2016 Acute bronchitis, unspecified organism J20.9 [place] [id number] [place] [address] 09922- 8245 26 Jan, 2016 Mood disorder F39 ; Migraine without aura and without status migrainosus, not intractable G43.009 ; Irritable bowel syndrome, unspecified type K58.9 ; Diabetes E11.9 and Encounter for immunization Z23 [facility] [id number] [place] [address] 71798- 2064 Jan, [facility] [id number] [place] [address] [phone] Jan, [facility] [id number] [place] [address] [phone]- [phone] Jan, [facility] [id number] [place] [address] [phone] Jan, [facility] [id number] [place] [address] [phone] Jan, [facility] [id number] [place] [address] [phone] Dec, Bipolar I disorder with depression F31.9 ; PTSD (post- traumatic stress disorder) F43.10 and Panic disorder with agoraphobia F40.01 [facility] [id number] [place] [address] [phone]- [phone] Dec, Chronic obstructive pulmonary disease, unspecified COPD type J44.9 ; Tremor R25.1 and Anxiety F41.9 [facility] [id number] [place] [address] [phone]- [phone] Dec, [facility] [id number] [place] [address] [phone] Nov, Tremors of nervous system R25.1 and Cramping of feet R25.2 [facility] [id number] [place] [address] [phone] Nov, [facility] [id number] [place] [address] [phone] 0442 Nov, [facility] [id number] [place] [address] [phone]- [phone] Oct, Chronic obstructive pulmonary disease, unspecified J44.9 [address] [address] Oct, [facility] [id number] [place] [address] 87936- 9567 Oct, Tremor R25.1 [facility] [address], [place] [address] 4667 Oct, Bipolar I disorder with depression F31.9 ; Diabetes E11.9 ; PTSD (post-traumatic stress disorder) F43.10 and Panic disorder with agoraphobia F40.01 [place] [id number] [place] [address] 45654- 9205 Oct, Mood disorder F39 [place] [id number] [place] [address] 83164- 6757 September, [facility] [place] [id number] [place] [address] 63959- 8934 September, Diabetes E11.9 ; Bipolar I disorder with depression F31.9 ; PTSD (post-traumatic stress disorder) F43.10 and Panic disorder with agoraphobia F40.01 [address] [id number] [place] [address] 63176- 5412 September, Mood disorder F39 ; Schizoaffective disorder, unspecified type F25.9 ; Arthritis M19.90 ; Tremor R25.1 ; Acute non-recurrent frontal sinusitis J01.10 and Blood in stool K92.1 [place] [address], [place] [address] 3234 September, [facility] [id number] [place] [address] 86428- 4636 September, Chronic obstructive pulmonary disease, unspecified J44.9 [facility] [id number] [place] [address] 64917- 6835 September, Diabetes E11.9 [place] [id number] [place] [address] 42226- 2224 Aug, Other bipolar disorder F31.89 and Anxiety disorder, unspecified F41.9 [facility] [id number] [place] [address] 89413- 9246 Aug, [facility] [id number] [place] [address] 33403- 7086 Aug, Diabetes E11.9 [facility] [id number] [place] [address] 37904 2546 18 Aug, 2015 [facility] [id number] [place] [address] 10989 2546 14 Aug, 2015 Diabetes E11.9 ; Fatigue R53.83 and Dizziness R42 [facility] [id number] [place] [address] 63265 2546 13 Aug, 2015 Other bipolar disorder F31.89 [facility] [id number] [place] [address] 58594- 2696 Aug, Generalized anxiety disorder F41.1 [facility] [id number] [place] [address] 85670 2548 07 Aug, 2015 Other bipolar disorder F31.89 and Anxiety disorder, unspecified F41.9 [facility] [id number] [place] [address] 86909- 6973 Aug, [facility] [id number] [place] [address] 99159- 8754 Jul, [facility] [id number] [place] [address] 16125 2544 Jul, [facility] [id number] [place] [address] 24126 2542 Jul, Bronchitis J40 [facility] [id number] [place] [address] 98672- 7973 Jul, Anxiety disorder F41.9 [facility] [id number] [place] [address] 24351- 5251 Jul, Other bipolar disorder F31.89 and Anxiety disorder, unspecified F41.9 [facility] [id number] [place] [address] 78872- 1027 Jul, Other bipolar disorder F31.89 and Fibromyalgia M79.7 [facility] [id number] [place] [address] 10427- 6741 Jul, [place] [address] 43505- 8950 Jul, [facility] [id number] [place] [address] 45404- 2037 Jul, [place] [address] 63183- 4898 Jul, Other bipolar disorder F31.89 and Anxiety disorder, unspecified F41.9 [place] [address] 07422- 6591 Jun, GERD (gastroesophageal reflux disease) K21.9 [place] [id number] [place] [address] 54651- 7383 Jun, [place] [address] 33765- 3480 May, [facility] [id number] [place] [address] 46975- 1742 May, Diabetes E11.9 ; Back pain M54.9 ; GERD (gastroesophageal reflux disease) K21.9 ; Hypertension I10 and Peripheral neuropathy G62.9 [place] [id number] [place] [address] 98929- 5609 Mar, [place] [address] 17470- 6010 Mar, [facility] [id number] [place] [address] 09962- 6932 Mar, Acute sinusitis J01.90 and Otitis media, left H66.92 [place] [id number] [place] [address] 38275- 2859 Feb, [facility] [id number] [place] [address] 72533- 8155 Feb, [facility] [id number] [place] [address] 87332- 9731 Feb, [facility] [id number] [place] [address] 39173- 3692 Feb, [facility] [id number] [place] [address] 29507- 3560 Jan, [facility] [id number] [place] [address] 96976- 1246 Jan, Diabetes 250.00 and Back pain 724.5 [facility] [id number] [place] [address] 69565- 9825 Jan, [facility] [id number] [place] [address] 93571- 0654 Dec, Diabetes 250.00 ; Benign essential hypertension 401.1 and Allergic rhinitis 477.9 [facility] [id number] [place] [address] 25405- 7598 Dec, [facility] [id number] [place] [address] 21130- 6732 Dec, [facility] [id number] [place] [address] 26412- 1517 Dec, Psychosis 298.9 [facility] [id number] [place] [address] 07276- 2897 Dec, Medication side effect 995.20 and Generalized anxiety disorder 300.02 [facility] [id number] [place] [address] 16166- 2457 Dec, Acquired cognitive dysfunction 294.9 [facility] [id number] [place] [address] 58951- 1653 Dec, [facility] [id number] [address]- 6047 Dec, Unspecified myalgia and myositis 729.1 and Generalized anxiety disorder 300.02 [facility] [id number] [place] [address] 24101- 2872 Nov, [facility] [id number] [place] [address] 71897- 3291 Nov, [facility] [id number] [place] [address] 34695- 0506 Nov, [facility] [id number] [place] [address] 65881- 3029 Nov, Upper respiratory infection 465.9 and Chronic airway obstruction, not elsewhere classified 496 [facility] [id number] [place] [address] 18411- 2686 Nov, Hyponatremia 276.1 [facility] [id number] [place] [address] 36832- 7822 Oct, [facility] [id number] [place] [address] 58620- 4888 Oct, [facility] [id number] [place] [address] 37053- 2204 Oct, [facility] [id number] [place] [address] 72268- 3207 Oct, [facility] [id number] [place] [address] 58677- 6386 Oct, Hyponatremia 276.1 [facility] [id number] [place] [address] 59793- 6108 Oct, [facility] [id number] [place] [address] 92640- 2105 Oct, [facility] [id number] [place] [address] 31915- 3067 Oct, Generalized anxiety disorder 300.02 [facility] [id number] [place] [address] [place] [address]- 9324 Oct, Generalized anxiety disorder 300.02 and Diabetes 250.00 [facility] [id number] [place] [address]- 1847 14 Aug, 2014 [facility] [address], [place] [address]- 0719 Aug, [facility] [id number] [place] [address], [place] [address]- 9856 Jul, [facility] [id number] 3657 Jul, [facility] [id number] [place] [address], [place] [address]- 3196 Jun, [facility] [id number] [place] [address]- 5674 Jun, [facility] [id number] [place] [address], [place] [address]- 3919 Jun, [facility] [id number] [place] [address]- 2299 Jun, [facility] [address], [place] [address]- 1601 Jun, [facility] [address], [place] [address]- 5790 May, [facility] [address], [place] [address]- 0971 May, [facility] [address] 1952 Apr, [facility] [address] 5904 Apr, [facility] [address], [place] [address]- 8330 Apr, [facility] [address], [place] [address]- 1638 Apr, [facility] [place] [facility] [address] [id number] [place] [address]- 0179 Apr, [facility] [place] [facility] [address] [id number] [place] [address]- 6836 Apr, [facility] [place] [facility] [address] [id number] [place] [address] 2549 Apr, [facility] [place] [facility] [address] [id number] [place] [address]- 5518 Apr, [facility] [place] [facility] [address] [id number] [place] [address]- 9912 Feb, [facility] [place] [facility] [address] [id number] [place] [address]- 1407 Feb, [facility] [place] [facility] [address] [id number] [place] [address]- 3682 Jan, [facility] [place] [facility] [address] [id number] [place] [address]- 8243 Jan, [facility] [place] [facility] [address] [id number] [place] [address]- 3735 Dec, [facility] [place] [facility] [address] [id number] [place] [address]- 9384 Dec, [facility] [place] [facility] [address] [id number] [address]- 2213 Dec, [facility] [place] [facility] [address] [id number] [place] [address]- 8871 Nov, [facility] [place] [facility] [address] [id number] [place] [address]- 1095 Nov, [facility] [place] [facility] [address] [id number] [place] [address]- 7504 Nov, [facility] [place] [facility] [address] [id number] [place] [address]- 8496 Oct, [facility] [place] [facility] [address] [id number] [place] [address]- 6603 Oct, [facility] [address] [id number] [place] [address]- 6733 Oct, [facility] [place] [facility] [address] [id number] [place] [address]- 2166 September, [facility] [address] [id number] [place] [address]- 6169 September, [facility] [address] [id number]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
--- OUTSIDE RECORDS SUMMARY | 2017-11-18 07:00 | XMS REPORT ---
Author Author WHIT GANDHI [facility] Address [address] [place] [address] Care Team Providers Care President [employer] Name Role Phone WHIT GANDHI Unavailable PROBLEMS Type Condition ICD9-CM Code LXR21-QY Code Onset Dates Condition Status SNOMED Code Problem Back pain M54.9 Active 708508595 Problem Diabetes E11.9 Active 96601498 Problem GERD (gastroesophageal reflux disease) K21.9 Active 109769793 Problem Hypertension I10 Active 00932585 Problem Anxiety disorder, unspecified F41.9 Active 730951656 Problem Other bipolar disorder F31.89 Active 37886182 Problem Fibromyalgia M79.7 Active 51574091 Problem Panic disorder with agoraphobia F40.01 Active 89267444 Problem Panlobular emphysema J43.1 Active 8900770 Problem Chronic obstructive pulmonary disease, unspecified J44.9 Active 88883277 Problem Akathisia G25.71 Active 380745587 Problem Lumbago with sciatica, left side M54.42 Active 158034956 Problem Migraine without aura and without status migrainosus, not intractable G43.009 Active 540017258 Problem Fibrocystic disease of right breast N60.11 Active 61183200 Problem Fibrocystic disease of left breast N60.12 Active 87719035 Problem Slow transit constipation K59.01 Active 90816596 Problem Essential tremor G25.0 Active 308234237 Problem Bipolar 1 disorder, depressed, moderate F31.32 Active 83001104 Problem Other chronic pain G89.29 Active 64185609 Problem Lumbago with sciatica, right side M54.41 Active 863188881 Problem Irritable bowel syndrome with constipation K58.1 Active 072355124 Problem Arthritis M19.90 Active 5598162 Problem Schizoaffective disorder, bipolar type F25.0 Active 13833424 Problem Irritable bowel syndrome with both constipation and diarrhea K58.2 Active 79869710 Problem Attention deficit hyperactivity disorder (ADHD), predominantly inattentive type F90.0 Active 59715467 Problem Bipolar I disorder with depression F31.9 Active 03311154 Problem Chronic post-traumatic stress disorder (PTSD) F43.12 Active 455933465 Problem Bipolar affective disorder, remission status unspecified F31.9 Active 87391206 Problem Mild persistent asthma without complication J45.30 Active 712692834 Problem Moderate persistent asthma without complication J45.40 Active 327133374 Problem Acute non-recurrent maxillary sinusitis J01.00 Active 37975452 Problem Bipolar 1 disorder, depressed, partial remission F31.75 Active 36353154 ALLERGIES No Information ENCOUNTERS Encounter Location Date Diagnosis [facility] [id number] [place] [address] 02293- 8255 Nov, [facility] [address] 97412- 6465 Nov, [facility] [address] 98551- 0003 Nov, [facility] [address] 78700- 9789 Nov, Mild persistent asthma without complication J45.30 and Irritable bowel syndrome with both constipation and diarrhea K58.2 [facility] [address] 06412- 8975 Nov, [facility] [id number] [place] [address] 48102- 2103 Oct, [facility] [address] 53322- 8595 Oct, [facility] [id number] [place] [address] 31082- 1798 Oct, Type 2 diabetes mellitus with diabetic neuropathy, unspecified 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 [address] [place] [address] Oct, [facility] [address] [address] 2175 Oct, [facility] [address] [place] [address] 66548- 2721 Oct, [facility] [address] [address] 6764 Oct, [facility] [id number] [place] [address] 46474- 5699 Oct, [facility] [id number] [place] [address] 04478- 0478 Oct, [facility] [address], [place] [address]- 2883 Oct, [facility] [address] [place] [address] 59541- 2474 September, Frequent headaches R51 [facility] [id number] [place] [address] 48572- 7176 September, Bilateral otitis media with effusion H65.93 ; Dizziness R42 and Essential tremor G25.0 [facility] [address], [place] [address]- 3108 September, Chronic obstructive pulmonary disease, unspecified COPD type J44.9 [facility] [address], [place] [address]- 6784 September, Chronic obstructive pulmonary disease, unspecified COPD type J44.9 [facility] [address], [place] [address]- 5845 September, Migraine without aura and without status migrainosus, not intractable G43.009 [facility] [address], [place] [address] 1636 September, [facility] [address] [place] [address]- 0972 September, [facility] [id number] [place] [address] 20266- 5613 September, [facility] [id number] [place] [address] 60351- 2684 September, Frequent headaches R51 [facility] [id number] [place] [address] 99403- 6371 Aug, [facility] [id number] [place] [address] 77529- 5057 Aug, Breast mass, right N63.10 [facility] [id number] [place] [address] 74827- 3969 Aug, Breast lump N63.0 [facility] [id number] [place] [address] 45743- 2909 Aug, [facility] [id number] [place] [address] 07724- 0562 Aug, Bipolar affective disorder, remission status unspecified F31.[address] [facility] [address] [place] [address] 01534- 2826 Aug, Diabetes E11.9 ; Schizoaffective disorder, bipolar type F25.0 ; Pharyngitis due to other organism J02.8 ; Panlobular emphysema J43.1 and Irritable bowel syndrome with both constipation and diarrhea K58.2 [facility] [address] [place] [address] 54526- 4098 Aug, Abnormal mammogram R92.8 [facility] [id number] [place] [address] 49826- 2586 Aug, [facility] [address] [place] [address] 38365- 1984 Aug, Bipolar 1 disorder, depressed, moderate F31.32 ; Panic disorder with agoraphobia F40.01 and Chronic post-traumatic stress disorder ( PTSD) F43.12 [facility] [id number] [place] [address] 42982- 0864 Aug, [facility] [id number] [place] [address] 52874- 6936 Aug, [facility] [address] 78039- 8568 Aug, [facility] [id number] [place] [address] 35531- 0608 Jul, [place] [address] 30865- 6530 Jul, Mild persistent asthma without complication J45.30 [facility] [id number] [place] [address] 72937- 2891 Jul, Mild persistent asthma without complication J45.30 [facility] [id number] [place] [address] 98028- 7285 15 Jul, 2017 Bipolar affective disorder, remission status unspecified F31.9 ; Diabetes E11.9 and Irritable bowel syndrome with constipation K58.1 [facility] [id number] [place] [address] 57225- 9132 Jul, [place] [place] [id number] [place] [address] 53133- 4991 Jul, [facility] [id number] [place] [address] 70324- 9758 Jul, Frequent headaches R51 [facility] [id number] [place] [address] 22564- 3322 07 Jul, 2017 [facility] [address] [place] [address] 03579- 4590 Jul, [facility] [id number] [place] [address] 43737- 1353 Jul, [facility] [id number] [place] [address] 53267- 7040 05 Jul, 2017 Frequent headaches R51 ; Fibrocystic disease of left breast N60.12 ; Fibrocystic disease of right breast N60.11 and Diabetes E11.9 [place] [id number] [place] [address] 31235- 2065 02 Jul, 2017 [place] [address] 56532- 3940 02 Jul, 2017 [place] [id number] [place] [address] 18769- 0061 21 Jun, 2017 Exudative tonsillitis J03.90 [place] [place] [address] 42012- 3919 20 Jun, 2017 [place] [place] [id number] [place] [address] 24219- 0907 19 Jun, 2017 [place] [place] [id number] [place] [address] 65677- 9700 15 Jun, 2017 Mild persistent asthma without complication J45.30 ; Chronic obstructive pulmonary disease, unspecified COPD type J44.9 and Exudative tonsillitis J03.90 [place] [place] [id number] [place] [address] 41195- 5530 13 Jun, 2017 Encounter for immunization Z23 [facility] [id number] [place] [address] 19777- 4014 Jun, [facility] [id number] [place] [address] 38102- 0142 12 Jun, 2017 [place] [place] [id number] [place] [address] 72235- 2187 09 Jun, 2017 [facility] [id number] [place] [address] 08588 -9368 06 Jun, 2017 Tonsillitis J03.90 [place] [place] [id number] [place] [address] 69003- 1034 05 Jun, 2017 [facility] [id number] [place] [address] 22250- 6546 03 Jun, 2017 Acute non-recurrent maxillary sinusitis J01.00 [facility] [id number] [place] [address] 81974- 5707 Jun, [facility] [address] 76333- 6658 May, [facility] [address] 98008- 0134 May, [place] [address] 14327- 7814 May, GERD (gastroesophageal reflux disease) K21.9 [place] [address] 31696- 0557 May, Migraine without aura and without status migrainosus, not intractable G43.009 [facility] [id number] [place] [address] 41004- 8301 May, [facility] [address] 46671- 8651 May, [facility] [id number] [place] [address] 31693- 6076 May, Panlobular emphysema J43.1 and Acute non-recurrent maxillary sinusitis J01.00 [facility] [id number] [place] [address] 54263- 9955 May, Bipolar 1 disorder, depressed, moderate F31.32 ; Panic disorder with agoraphobia F40.01 and Akathisia G25.71 [place] [address] 97242- 4572 Apr, [facility] [address] 12394- 0686 Apr, [facility] [address] [place] [address]- 8048 13 Apr, 2017 Acute non-recurrent maxillary sinusitis J01.00 [facility] [id number] [place] [address] 12312- 0699 07 Apr, [address] [facility] [id number] [place] [address] 81404- 0424 Apr, [facility] [address] 35687 -9681 Apr, Exudative tonsillitis J03.90 and Sore throat J02.9 [place] [place] [address] 49423- 5647 Mar, [place] [place] [id number] [place] [address] 53761- 5724 15 Mar, 2017 Acute non-recurrent maxillary sinusitis J01.00 [facility] [address] 85746- 2562 Mar, [facility] [address] 86530- 0355 Mar, Panlobular emphysema J43.[address] [facility] [id number] [place] [address] 12282- 0968 Mar, [facility] [id number] [place] [address] 80084 -5327 Feb, Wheezing R06.2 and Acute recurrent pansinusitis J01.41 [facility] [id number] [place] [address] 38394- 9933 Feb, [place] [address] 50198- 4692 Feb, Acute non-recurrent maxillary sinusitis J01.00 [facility] [id number] [place] [address] 99829- 6877 Feb, Chronic obstructive pulmonary disease, unspecified J44.9 [facility] [id number] [place] [address] 76383 2546 02 Feb, 2017 Hypoxemia R09.02 and Chronic obstructive pulmonary disease, unspecified J44.9 [facility] [id number] [place] [address] 45427 2546 28 Jan, 2017 Bipolar 1 disorder, depressed, moderate F31.32 ; Panic disorder with agoraphobia F40.01 ; Chronic post-traumatic stress disorder (PTSD ) F43.12 ; Diabetes E11.9 and Moderate persistent asthma without complication J45.40 [facility] [id number] [place] [address] 99580 2546 22 Jan, 2017 [facility] [id number] [place] [address] 20768 2546 19 Jan, 2017 Acute non-recurrent maxillary sinusitis J01.00 [facility] [id number] [place] [address] 58543 2546 18 Jan, 2017 [facility] [id number] [place] [address] 39200 2546 18 Jan, 2017 [facility] [id number] [place] [address] 08420 2546 Jan, Moderate persistent asthma without complication J45.[address] [facility] [address] [place] [address] 26838 2546 Jan, Moderate persistent asthma without complication J45.[address] [facility] [id number] [place] [address] 93548 2546 Jan, [facility] [id number] [place] [address] 18260 2546 Dec, Acute non-recurrent maxillary sinusitis J01.00 [facility] [address] [place] [address] 24237 2546 Dec, Chronic obstructive pulmonary disease, unspecified J44.9 [facility] [address] [address]- 4996 Dec, [facility] [address] [place] [address] 62932- 2213 Dec, Mild persistent asthma without complication J45.30 and Other chronic pain G89.29 [facility] [address] [place] [address] 15254- 0012 Nov, [facility] [address] [place] [address] 90936- 1168 Nov, Acute non-recurrent maxillary sinusitis J01.00 [facility] [address] [place] [address] 39363- 4906 Nov, [facility] [address] [place] [address] 89696- 2832 Nov, [facility] [address] [place] [address] 13466- 2627 Oct, [facility] [address] [place] [address] 03928- 1426 Oct, Bipolar 1 disorder, depressed, partial remission F31.75 ; Panic disorder with agoraphobia F40.01 and Chronic post-traumatic stress disorder (PTSD) F43.12 [facility] [address], [place] [address]- 3094 Oct, Acute non-recurrent maxillary sinusitis J01.00 [facility] [address], [place] [address]- 1007 Oct, [facility] [address] [place] [address] 72085- 4444 Oct, Diabetes E11.9 [facility] [id number] [place] [address] 21850- 3115 September, Diabetes E11.9 [facility] [address], [place] [address]- 6836 September, Diabetes E11.9 [address] tachy[address] R00.0 [facility] [address] [address]- 4702 September, [facility] [address] [place] [address] 40214- 4505 September, [facility] [address] [place] [address] 37456- 4332 Aug, Diabetes E11.9 and Lumbago with sciatica, right side M54.41 [facility] [address] [place] [address] 90445- 0721 Aug, [facility] [address] [place] [address] 66786- 6795 Jul, Bipolar 1 disorder, depressed, moderate F31.32 ; Panic disorder with agoraphobia F40.01 and Chronic post-traumatic stress disorder ( PTSD) F43.12 [place] [address] [place] [address] 51305- 6718 Jul, Sore throat J02.9 [facility] [id number] [place] [address] 51562- 8038 Jul, [facility] [id number] [place] [address] 65224- 1140 Jul, [facility] [address] [place] [address] 48001- 0960 Jul, [facility] [id number] [place] [address] 78171- 4591 Jul, [facility] [address] [place] [address] 34451- 0670 Jul, Sore throat J02.9 and Pharyngitis, unspecified etiology J02.9 [facility] [address] [place] [address] 85470- 5469 Jun, [facility] [id number] [place] [address] 47015- 2776 Jun, Diabetes E11.9 [facility] [address], [place] [address]- 6354 Jun, [facility] [address], [place] [address]- 5346 Jun, [facility] [address], [place] [address]- 3533 Jun, [facility] [address], [place] [address]- 9712 Jun, [facility] [address], [place] [address]- 3354 Jun, [facility] [address] [place] [address] 81408- 7855 Jun, [facility] [address], [place] [address]- 8768 Jun, [facility] [address], [place] [address]- 3502 Jun, [facility] [address], [place] [address]- 6055 May, Diabetes E11.9 ; Other chronic pain G89.29 ; Acute recurrent maxillary sinusitis J01.01 ; Bipolar I disorder with depression F31.9 and Anxiety disorder, unspecified F41.9 [facility] [address], [place] [address]- 6514 May, [facility] [address], [place] [address]- 0358 May, Diabetes E11.9 ; Bipolar I disorder with depression F31.9 ; Anxiety disorder, unspecified F41.9 ; Other chronic pain G89.29 and Acute recurrent maxillary sinusitis J01.01 [facility] [address], [place] [address]- 8954 May, [facility] [address] [place] [address] 98177- 9019 May, Attention deficit hyperactivity disorder (ADHD), predominantly inattentive type F90.0 [facility] [id number] [place] [address] 16730- 5698 May, [facility] [id number] [place] [address] 82937- 1292 Apr, Attention deficit hyperactivity disorder (ADHD), predominantly inattentive type F90.0 and Non-seasonal allergic rhinitis due to other allergic trigger J30.89 [facility] [address] [place] [address] 17995- 9575 Apr, Bipolar 1 disorder, depressed, moderate F31.32 ; Panic disorder with agoraphobia F40.01 and Chronic post-traumatic stress disorder ( PTSD) F43.12 [facility] [id number] [place] [address] 70471- 3394 Apr, Dental examination Z01.20 [facility] [id number] [place] [address] 01672- 9559 Mar, [facility] [id number] [place] [address] 19710- 5183 Mar, [facility] [id number] [place] [address] 59746- 8734 Mar, Bipolar I disorder with depression F31.9 and Anxiety disorder, unspecified F41.9 [facility] [id number] [place] [address] 20176- 8828 08 Mar, 2016 Panic disorder with agoraphobia F40.01 ; Bipolar 1 disorder , depressed, moderate F31.32 and Chronic post-traumatic stress disorder (PTSD) F43.12 [facility] [id number] [place] [address] 81727- 3475 04 Mar, 2016 [facility] [id number] [place] [address] 58129- 8431 Mar, Dental caries K02.9 [facility] [address] [place] [address]- 5571 Feb, Lumbago with sciatica, left side M54.42 ; Lumbago with sciatica, right side M54.41 and Other chronic pain G89.29 [facility] [id number] [place] [address] 71824- 9319 17 Feb, 2016 [facility] [address] 08297- 1015 Feb, [facility] [address] 55210- 9862 Feb, Bipolar I disorder with depression F31.9 ; PTSD (post- traumatic stress disorder) F43.10 and Mood disorder F39 [facility] [address] 65663- 6360 Feb, [facility] [address] 93652- 4049 Feb, Dental examination Z01.20 [facility] [id number] [place] [address] 76512- 0555 07 Feb, 2016 [facility] [address] 85566 -0708 Feb, Acute bronchitis, unspecified organism J20.9 [facility] [place] [id number] [place] [address] 81462- 7321 Jan, Mood disorder F39 ; Migraine without aura and without status migrainosus, not intractable G43.009 ; Irritable bowel syndrome, unspecified type K58.9 ; Diabetes E11.9 and Encounter for immunization Z23 [facility] [id number] [place] [phone] 15 Jan, 2016 [place] [address] [address] 06 Jan, 2016 [facility] [id number] [place] [address]- [address] Jan, [place] [address] [address] Jan, [facility] [id number] [place] [address] Jan, [facility] [address] [place] [address] Dec, Bipolar I disorder with depression F31.9 ; PTSD (post- traumatic stress disorder) F43.10 and Panic disorder with agoraphobia F40.01 [facility] [address] [address] Dec, Chronic obstructive pulmonary disease, unspecified COPD type J44.9 ; Tremor R25.[address] [facility] [address] [place] [address] Dec, [facility] [id number] [place] [phone]- [address] Nov, Tremors of nervous system R25.1 and Cramping of feet R25.2 [facility] [address] [place] [address] Nov, [facility] [address] [place] [address] Nov, [facility] [address] [place] [address] Oct, Chronic obstructive pulmonary disease, unspecified J44.9 [facility] [address] [place] [address] Oct, [facility] [address] [address], [place] [address] Oct, [address]25[address]1 [facility] [address], [place] [address] 9343 Oct, Bipolar I disorder with depression F31.9 ; Diabetes E11.9 ; PTSD (post-traumatic stress disorder) F43.10 and Panic disorder with agoraphobia F40.01 [facility] [id number], [place] [address]47 Oct, Mood disorder F39 [facility] [id number] [place] [address] 96540- 2227 September, [place] [id number] [place] [address] 46988- 8814 September, Diabetes E11.9 ; Bipolar I disorder with depression F31.9 ; PTSD (post-traumatic stress disorder) F43.10 and Panic disorder with agoraphobia F40.01 [place] [id number] [place] [address] 19553- 5483 September, Mood disorder F39 ; Schizoaffective disorder, unspecified type F25.9 ; Arthritis M19.90 ; Tremor R25.1 ; Acute non-recurrent frontal sinusitis J01.10 and Blood in stool K92.1 [place] [facility] [id number] [place] [address] 80446- 4438 September, [place] [id number] [place] [address] 36746- 3547 September, Chronic obstructive pulmonary disease, unspecified J44.9 [place] [id number] [place] [address] 32481- 7878 September, Diabetes E11.9 [place] [place] [id number] [place] [address] 76663- 1650 Aug, Other bipolar disorder F31.89 and Anxiety disorder, unspecified F41.9 [place] [id number] [place] [address] 22636- 1944 Aug, [place] [id number] [place] [address] 94897- 4704 Aug, Diabetes E11.9 [place] [id number] [place] [address] 81848- 5330 Aug, [place] [id number] [place] [address] 72832- 4679 14 Aug, 2015 Diabetes E11.9 ; Fatigue R53.[address] [facility] [id number] [place] [address] 82951- 6476 13 Aug, 2015 Other bipolar disorder F31.89 [facility] [id number] [place] [address] 06729- 8336 07 Aug, 2015 Generalized anxiety disorder F41.1 [facility] [id number] [place] [address] 47150- 9813 07 Aug, 2015 Other bipolar disorder F31.89 and Anxiety disorder, unspecified F41.9 [place] [id number] [place] [address] 91403- 1277 04 Aug, 2015 [facility] [id number] [place] [address] 68594- 0420 Jul, [facility] [id number] [place] [address] 78334- 6834 [address], [address] [facility] [id number] [place] [address] 45033- 3385 Jul, Bron[address]itis J40 [facility] [id number] [place] [address] 43996- 7003 Jul, Anxiety disorder F41.9 [facility] [id number] [place] [address] 42102- 8016 Jul, Other bipolar disorder F31.89 and Anxiety disorder, unspecified F41.9 [facility] [address] [place] [address] 91104- 7808 18 Jul, 2015 Other bipolar disorder F31.[address] [facility] [id number] [place] [address] 12604- 9682 10 Jul, 2015 [facility] [id number] [place] [address] 11735- 1183 09 Jul, 2015 [facility] [id number] [place] [address] 11035- 7410 Jul, [facility] [id number] [place] [address] 51525- 6755 Jul, Other bipolar disorder F31.89 and Anxiety disorder, unspecified F41.9 [facility] [id number] [place] [address] 43993- 8926 Jun, GERD (gastroesophageal reflux disease) K21.9 [facility] [id number] [place] [address] 05478- 7593 Jun, [facility] [address] [address]- 8918 May, [facility] [id number] [place] [address] 82088- 4946 May, Diabetes E11.9 ; Back pain M54.9 ; GERD (gastroesophageal reflux disease) K21.9 ; Hypertension I10 and Peripheral neuropathy G62.9 [facility] [id number] [place] [address] 82340- 0487 Mar, [facility] [id number] [place] [address] 61625- 7188 Mar, [facility] [id number] [place] [address] 71690- 2018 Mar, Acute sinusitis J01.90 and Otitis media, left H66.92 [facility] [id number] [place] [address] 26499- 1781 Feb, [facility] [id number] [place] [address] 71604- 6841 Feb, [facility] [id number] [place] [address] 52387- 3238 15 Feb, 2015 [facility] [id number] [place] [address] 89627- 6882 Feb, [facility] [address] [place] [address]- 8382 Jan, [facility] [id number] [place] [address] 23843- 9675 Jan, Diabetes 250.00 [address].5 [facility] [id number] [place] [address] 99096- 2356 Jan, [facility] [address] 70563- 0170 Dec, Diabetes 250.00 ; Benign essential hypertension 401.[address] rh[address].9 [facility] [id number] [place] [address] 77731- 8269 Dec, [facility] [id number] [place] [address] 62607- 1393 Dec, [facility] [id number] [place] [address] 53402- 3510 Dec, Psychosis 298.9 [facility] [id number] [place] [address] 45559- 9506 Dec, Medication side effect 995.20 and Generalized anxiety disorder 300.02 [facility] [id number] [place] [address] 00813- 3007 Dec, Acquired cognitive dysfunction 294.9 [facility] [id number] [place] [address] 94024- 9641 Dec, [facility] [id number] [place] [address] 19447- 9380 Dec, Unspecified myalgia and myositis 729.1 and Generalized anxiety disorder 300.02 [facility] [id number] [place] [address] 89136- 0191 Nov, [facility] [id number] [place] [address] 37243- 9476 Nov, [facility] [id number] [place] [address] 79906- 9808 Nov, [facility] [address], [place] [address]- 3442 Nov, Upper respiratory infection 465.9 and Chronic airway obstruction, not elsewhere classified 496 [facility] [id number], [place] [address]- 3198 Nov, Hyponatremia 276.1 [facility] [id number] [place] [address] 13692- 0012 Oct, [facility] [id number] [place] [address] 53736- 2822 Oct, [facility] [id number] [place] [address] 53489- 2562 Oct, [facility] [id number] [place] [address] 81814- 1804 Oct, [facility] [id number] [place] [address] 64033- 6398 Oct, Hyponatremia 276.1 [facility] [id number] [place] [address] 37479- 9643 Oct, [facility] [id number] [place] [address] 80378- 9235 Oct, [facility] [address], [place] [address]- 5491 Oct, Generalized anxiety disorder 300.02 [facility] [id number] [place] [address] 57020- 5980 Oct, Generalized anxiety disorder 300.[address] [facility] [address] [place] [address] 01208- 4521 Aug, [facility] [id number], [place] [address]- 6264 Aug, [facility] [address], [place] [address]- 4036 Jul, [facility] [place] [facility] [address] [id number] [place] [address]- 6560 Jul, [facility] [place] [facility] [address] [id number] [place] [address]- 4946 Jun, [facility] [place] [facility] [address] [id number] [place] [address]- 1286 Jun, [facility] [place] [facility] [address] [id number] [place] [address]- 6336 Jun, [facility] [place] [facility] [address] [id number] [place] [address]- 6945 Jun, [facility] [place] [facility] [address] [id number] [place] [address]- 6413 Jun, [facility] [place] [facility] [address] [id number] [place] [address]- 8157 May, [facility] [place] [facility] [address] [id number] [place] [address]- 9051 May, [facility] [place] [facility] [address] [id number] [place] [address]- 0291 Apr, [facility] [place] [facility] [address] [id number] [place] [address]- 9537 Apr, [facility] [place] [facility] [address] [id number] [place] [address]- 3116 Apr, [facility] [place] [facility] [address] [id number] [place] [address]- 0890 18 Apr, 2013 [facility] [place] [facility] [address] [id number] [place] [address] 2546 17 Apr, 2013 [facility] [place] [facility] [address] [id number] [place] 7596 Apr, [facility] [place] [facility] [address] [id number] [place] [address]- 0335 Apr, [facility] [place] [facility] [address] [id number] [place] [address]- 5048 Apr, [facility] [address] [id number] [place] [address]- 6494 Feb, [facility] [place] [facility] [address] [id number] [place] [address]- 9252 Feb, [facility] [address] [id number] [place] [address]- 4843 Jan, [facility] [place] [facility] [address] [id number] [place] [address]- 9083 Jan, [facility] [address] [id number] [place] [address]- 4956 Dec, [facility] [place] [facility] [address] [id number] [place] [address]- 8921 Dec, [facility] [address] [id number] [place] [address]- 3614 Dec, [facility] [place] [facility] [address] [id number] [place] [address]- 4072 Nov, [facility] [address] [id number] [place] [address]- 9908 Nov, [facility] [place] [facility] [address] [id number] [place] [address]- 1619 Nov, [facility] [place] [facility] [address] [id number] [place] [address]- 4039 Oct, [facility] [place] [facility] [address] [id number] [place] [address]- 3110 Oct, [facility] [place] [facility] [address] [id number] [place] [address]- 7141 Oct, [facility] [place] [facility] [address] [id number] [place] [address]- 1315 September, [facility] [place] [facility] [address] [id number] [place] [address]- 6437 September, [facility] [place] [facility] [address] [id number] [place] [address]- 4856 September, [facility] [place] [facility] [address] [id number] [place] [address]- 0383 Aug, [facility] [place] [facility] [address] [id number] [place] [address]- 9973 Aug, [facility] [place] [facility] [address] [id number] [place] [address]- 2659 Aug, [facility] [place] [facility] [address] [id number] [place] [address]- 5030 16 Aug, 2011 [facility] [place] [facility] [address] [id number] [place] [address]- 9973 Jul, [facility] [place] [facility] [address] [id number] [place] [address]- 9763 Jun, [facility] [place] [facility] [address] [id number] [place] [address]- 7019 14 Jun, 2011 [facility] [place] [facility] [address] [id number] [place] [address]- 6495 Jun, [facility] [place] [facility] [address] [id number] [place] [address]- 6985 07 Jun, 2011 [facility] [place] [facility] [address] [id number] [place] [address]- 3106 Jun, [facility] [place] [facility] [address] [id number] [place] [address]- 8786 May, [facility] [place] [facility] [address] [id number] [place] [address]- 2408 May, [facility] [place] [facility] [address] [id number] [place] [address]- 4663 May, [facility] [place] [facility] [address] [id number] [place] 4273 May, [facility] [place] [facility] [address] [id number] [address]- 7121 20 Apr, 2011 [facility] [place] [facility] [address] [id number] [place] [address]- 2028 13 Apr, 2011 [facility] [place] [facility] [address] [id number] [place] [address]- 6814 05 Apr, 2011 [facility] [place] [facility] [address] [id number] [place] [address]- 2582 Mar, [facility] [place] [facility] [address] [id number] [place] [address]- 9312 Mar, [facility] [place] [facility] [address] [id number] [place] [address]- 2095 Mar, [facility] [place] [facility] [address] [id number] [place] 3571 13 Feb, 2011 [facility] [place] [facility] [address] [id number] [place] [address]- 1553 13 Feb, 2011 [facility] [place] [facility] [address] [id number] [place] [address]- 2742 13 Feb, 2011 [facility] [place] [facility] [address] [id number] [place] [address]- 2848 Nov, [facility] [place] [facility] [address] [id number] [place] [address]- 9533 September, [facility] [place] [facility] [address] [id number] [place] [address]- 7959 Aug, [facility] [place] [facility] [address] [id number] [place] [address]- 4138 14 Jul, 2010 [facility] [place] [facility] [address] [id number] [place] [address]- 2760 May, [facility] [place] [facility] [address] [id number] [place] [address]- 1604 31 Apr, 2010 [facility] [place] [facility] [address] [id number] [place] [address]- 5072 30 Apr, 2010 [facility] [place] [facility] [address] [facility] [id number] [place] [address]- [address] Apr, [facility] [address] [facility] [id number] [place] [address]- 2228 Apr, [facility] [address] [facility] [id number] [place] [address]- 8279 Apr, IMMUNIZATIONS No Known Immunizations SOCIAL HISTORY Never Assessed REASON FOR VISIT med refill PLAN OF CARE VITAL SIGNS MEDICATIONS Medication Instructions Dosage Frequency Start Date End Date Duration Status Dicyclomine HCl 20 MG TAKE ONE TABLET BY MOUTH FOUR TIMES DAILY 30 Active RESULTS No Results PROCEDURES No Known [...]
--- OUTSIDE RECORDS SUMMARY | 2017-11-18 07:01 | XMS REPORT ---
Author Author JOHANN YVON Organization [facility] Address [address] [place] [address] Care Team Providers Care Drilling Foreman Name Role Phone KYE WILLSA Unavailable PROBLEMS Type Condition ICD9-CM Code YHE35-WD Code Onset Dates Condition Status SNOMED Code Problem GERD (gastroesophageal reflux disease) K21.9 Active 804618253 Problem Back pain M54.9 Active 492329012 Problem Diabetes E11.9 Active 12011307 Problem Hypertension I10 Active 70152100 Problem Anxiety disorder, unspecified F41.9 Active 583817524 Problem Other bipolar disorder F31.89 Active 21672730 Problem Fibromyalgia M79.7 Active 61476611 Problem Moderate persistent asthma without complication J45.40 Active 475994930 Problem Panic disorder with agoraphobia F40.01 Active 84327253 Problem Panlobular emphysema J43.1 Active 9112518 Problem Chronic obstructive pulmonary disease, unspecified J44.9 Active 83319412 Problem Akathisia G25.71 Active 858911411 Problem Fibrocystic disease of left breast N60.12 Active 06163038 Problem Migraine without aura and without status migrainosus, not intractable G43.009 Active 947362901 Problem Essential tremor G25.0 Active 084356463 Problem Schizoaffective disorder, bipolar type F25.0 Active 43670578 Problem Other chronic pain G89.29 Active 50600229 Problem Lumbago with sciatica, right side M54.41 Active 657392733 Problem Lumbago with sciatica, left side M54.42 Active 186006813 Problem Arthritis M19.90 Active 3045396 Problem Fibrocystic disease of right breast N60.11 Active 03123566 Problem Irritable bowel syndrome with both constipation and diarrhea K58.2 Active 18699416 Problem Irritable bowel syndrome with constipation K58.1 Active 445823276 Problem Bipolar affective disorder, remission status unspecified F31.9 Active 11785600 Problem Attention deficit hyperactivity disorder (ADHD), predominantly inattentive type F90.0 Active 31142888 Problem Bipolar 1 disorder, depressed, moderate F31.32 Active 56500058 Problem Chronic post-traumatic stress disorder (PTSD) F43.12 Active 520752216 Problem Bipolar 1 disorder, depressed, partial remission F31.75 Active 73208957 Problem Mild persistent asthma without complication J45.30 Active 186456930 Problem Bipolar I disorder with depression F31.9 Active 86146751 Problem Acute non-recurrent maxillary sinusitis J01.00 Active 65924235 ALLERGIES No Information ENCOUNTERS Encounter Location Date Diagnosis [facility] [id number] [place] [address] 86361- 6002 12 Nov, 2017 [facility] [address] 10205- 7164 Oct, [facility] [address] 99623- 5376 Oct, [facility] [address] 51727- 1551 Oct, [facility] [id number] [place] [address] 58945- 9660 Oct, [facility] [address] 46553- 1830 Oct, [facility] [id number] [place] [address] 39922- 8060 Oct, [facility] [id number] [place] [address] 30710- 6353 Oct, [facility] [id number] [place] [address] 56999- 5357 September, Frequent headaches R51 [facility] [address] 03663- 7842 September, Bilateral otitis media with effusion H65.93 ; Dizziness R42 and Essential tremor G25.0 [facility] [id number] [place] [address] 62594- 6840 September, Chronic obstructive pulmonary disease, unspecified COPD type J44.9 [facility] [address] [place] [address] 13642- 6543 September, Chronic obstructive pulmonary disease, unspecified COPD type J44.9 [facility] [id number] [place] [address] 33499- 2523 September, Migraine without aura and without status migrainosus, not intractable G43.009 [facility] [id number] [place] [address] 49842- 6716 September, [facility] [id number] [place] [address] 08856- 2195 September, [facility] [id number] [place] [address] 06701- 7552 September, [facility] [id number] [place] [address] 02166- 2655 September, Frequent headaches R51 [facility] [id number] [place] [address] 84589- 2476 Aug, [facility] [id number] [place] [address] 62546- 9927 Aug, Breast mass, right N63.10 [facility] [id number] [place] [address] 97769- 7157 Aug, Breast lump N63.0 [facility] [id number] [place] [address] 74798- 1959 Aug, [facility] [id number] [place] [address] 62020- 3598 Aug, Bipolar affective disorder, remission status unspecified F31.9 and Diabetes E11.9 [facility] [id number] [place] [address] 25164- 8461 Aug, Diabetes E11.9 ; Schizoaffective disorder, bipolar type F25.0 ; Pharyngitis due to other organism J02.8 ; Panlobular emphysema J43.1 and Irritable bowel syndrome with both constipation and diarrhea K58.2 [facility] [id number] [place] [address] 42537- 8281 Aug, Abnormal mammogram R92.8 [facility] [id number] [place] [address] 76086- 8734 Aug, [facility] [id number] [place] [address] 58569- 8279 Aug, Bipolar 1 disorder, depressed, moderate F31.32 ; Panic disorder with agoraphobia F40.01 and Chronic post-traumatic stress disorder ( PTSD) F43.12 [facility] [address] 66585- 7982 Aug, [facility] [id number] [place] [address] 90403- 3592 Aug, [facility] [address] 62140- 2754 Aug, [facility] [id number] [place] [address] 13235- 5564 Jul, [facility] [id number] [place] [address] 71330- 9068 Jul, Mild persistent asthma without complication J45.30 [facility] [id number] [place] [address] 84584- 3228 Jul, Mild persistent asthma without complication J45.30 [facility] [id number] [place] [address] 09793- 1460 15 Jul, 2017 Bipolar affective disorder, remission status unspecified F31.9 ; Diabetes E11.9 and Irritable bowel syndrome with constipation K58.1 [facility] [id number] [place] [address] 34543- 6695 Jul, [facility] [id number] [place] [address] 08044- 5293 Jul, [facility] [address] [place] [address]- 8814 08 Jul, 2017 Frequent headaches R51 [facility] [id number] [place] [address] 11578- 7094 Jul, [facility] [id number] [place] [address] 60153- 0779 Jul, [facility] [id number] [place] [address] 61074- 4112 Jul, [facility] [id number] [place] [address] 94785- 4843 Jul, Frequent headaches R51 ; Fibrocystic disease of left breast N60.12 ; Fibrocystic disease of right breast N60.11 and Diabetes E11.9 [place] [id number] [place] [address] 53828- 9496 Jul, [place] [id number] [place] [address] 89041- 4984 Jul, [place] [id number] [place] [address] 10404- 0797 Jun, Exudative tonsillitis J03.90 [place] [id number] [place] [address] 96404- 2740 Jun, [place] [id number] [place] [address] 93230- 3694 Jun, [place] [id number] [place] [address] 11821- 9430 15 Jun, 2017 Mild persistent asthma without complication J45.30 ; Chronic obstructive pulmonary disease, unspecified COPD type J44.9 and Exudative tonsillitis J03.90 [place] [id number] [place] [address] 62151- 2236 13 Jun, 2017 Encounter for immunization Z23 [facility] [id number] [place] [address] 14048- 0938 Jun, [place] [address] [address]- 6817 Jun, [facility] [id number] [place] [address] 83433- 0061 Jun, [facility] [id number] [place] [address] 06245 -0101 Jun, Tonsillitis J03.90 [facility] [id number] [place] [address] 70606- 0799 Jun, [facility] [id number] [place] [address] 65886- 6542 Jun, Acute non-recurrent maxillary sinusitis J01.00 [facility] [id number] [place] [address] 38404- 9713 Jun, [facility] [address] 23955- 3489 May, [facility] [id number] [place] [address] 59985- 4634 May, [facility] [id number] [place] [address] 40956- 5602 May, GERD (gastroesophageal reflux disease) K21.9 [facility] [id number] [place] [address] 03091- 1136 May, Migraine without aura and without status migrainosus, not intractable G43.009 [facility] [id number] [place] [address] 20308- 7134 May, [facility] [id number] [place] [address] 50914- 9718 May, [facility] [id number] [place] [address] 18873- 3343 May, Panlobular emphysema J43.1 and Acute non-recurrent maxillary sinusitis J01.00 [facility] [address] [place] [address] 00947- 8619 May, Bipolar 1 disorder, depressed, moderate F31.32 ; Panic disorder with agoraphobia F40.01 and Akathisia G25.71 [place] [address] 00607- 5310 Apr, [place] [address] 28516- 7007 Apr, [place] [address] 28323- 7139 Apr, Acute non-recurrent maxillary sinusitis J01.00 [place] [address] 97985- 8319 Apr, Panlobular emphysema J43.1 [place] [address] 40896- 2983 Apr, [facility] [place] [address] 20755 -2348 Apr, Exudative tonsillitis J03.90 and Sore throat J02.9 [place] [address] 50490- 6381 Mar, [place] [address] 12869- 7238 15 Mar, 2017 Acute non-recurrent maxillary sinusitis J01.00 [place] [address] 82084- 6594 Mar, [place] [address] 71063- 4792 Mar, Panlobular emphysema J43.1 and Diabetes E11.9 [place] [address] 77220- 3977 06 Mar, 2017 [facility] [address] 06039 -2588 24 Oct, 2017 Wheezing R06.2 and Acute recurrent pansinusitis J01.41 [facility] [id number] [place] [address] 45070- 2136 Feb, [facility] [id number] [place], [place] [address] 411 16 Feb, 2017 Acute non-recurrent maxillary sinusitis J01.00 [facility] [id number] [place] [address] 533651- 4250 16 Feb, 2017 Chronic obstructive pulmonary disease, unspecified J44.9 [facility] [id number] [place] 29[address] Feb, Hypoxemia R09.02 and Chronic obstructive pulmonary disease, unspecified J44.9 [facility] [id number] [place] [address] 53682- 0503 28 Jan, 2017 Bipolar 1 disorder, depressed, moderate F31.32 ; Panic disorder with agoraphobia F40.01 ; Chronic post-traumatic stress disorder (PTSD ) F43.12 ; Diabetes E11.9 and Moderate persistent asthma without complication J45.40 [facility] [id number] [place] [address] 23098- 7792 22 Jan, 2017 [facility] [id number] [place] [address] 410024- 8133 19 Jan, 2017 Acute non-recurrent maxillary sinusitis J01.00 [facility] [id number] [place] [address] 85810- 9709 18 Jan, 2017 [facility] [id number] [place] [address] 15605- 2544 18 Jan, 2017 [facility] [id number] [place] [address] 79140- 5080 12 Jan, 2017 Moderate persistent asthma without complication J45.40 and Hypoxemia R09.02 [facility] [id number] [place] [address] 21299- 2542 11 Jan, 2017 Moderate persistent asthma without complication J45.40 and Hypoxemia R09.02 [place] [address] [address]- 7485 Jan, [facility] [id number] [place] [address] 91237- 2067 Dec, Acute non-recurrent maxillary sinusitis J01.00 [facility] [id number] [place] [address] 29927- 0445 Dec, Chronic obstructive pulmonary disease, unspecified J44.9 [facility] [id number] [place] [address] 29887- 1786 Dec, [facility] [id number] [place] [address] 10698- 0348 Dec, Mild persistent asthma without complication J45.30 and Other chronic pain G89.29 [place] [id number] [place] [address] 58302- 8442 Nov, [facility] [id number] [place] [address] 81148- 1727 Nov, Acute non-recurrent maxillary sinusitis J01.00 [facility] [id number] [place] [address] 86899- 8281 Nov, [facility] [id number] [place] [address] 87071- 3173 Nov, [facility] [id number] [place] [address] 26025- 6910 Oct, [facility] [id number] [place] [address] 54421- 4760 Oct, Bipolar 1 disorder, depressed, partial remission F31.75 ; Panic disorder with agoraphobia F40.01 and Chronic post-traumatic stress disorder (PTSD) F43.12 [facility] [address] [address]- 8387 Oct, Acute non-recurrent maxillary sinusitis J01.00 [facility] [id number] [place] [address] 78443- 4186 Oct, [facility] [address] [place] [address] 85379- 8961 Oct, Diabetes E11.9 [facility] [id number] [place] [address] 59129- 7943 September, Diabetes E11.9 [facility] [id number] [place] [address] 55565- 5284 September, Diabetes E11.9 and Sinus tachycardia R00.0 [facility] [id number] [place] [address] 66397- 7038 September, [facility] [id number] [place] [address] 34697- 5878 September, [facility] [id number] [place] [address] 08502- 5179 Aug, Diabetes E11.9 and Lumbago with sciatica, right side M54.41 [facility] [id number] [place] [address] 88760- 7689 Aug, [facility] [id number] [place] [address] 44658- 4756 30 Jul, 2016 Bipolar 1 disorder, depressed, moderate F31.32 ; Panic disorder with agoraphobia F40.01 and Chronic post-traumatic stress disorder ( PTSD) F43.12 [facility] [id number] [place] [address] 49836- 1361 Jul, Sore throat J02.9 [facility] [address] [address]- 9278 Jul, [facility] [id number] [place] [address] 02255- 4899 Jul, [facility] [id number] [place] [address] 25279- 8813 09 Jul, 2016 [facility] [id number] [place] [address] 14456- 9945 Jul, [facility] [address] [address]- 7559 Jul, Sore throat J02.9 and Pharyngitis, unspecified etiology J02.9 [facility] [address] [address]- 6841 Jun, [facility] [id number] [place] [address] 17209- 1701 Jun, Diabetes E11.9 [facility] [id number] [place] [address] 98475- 1484 Jun, [facility] [id number] [place] [address] 81098- 1244 Jun, [facility] [id number] [place] [address] 25847- 6721 Jun, [facility] [id number] [place] [address] 99866- 7512 Jun, [facility] [address] [place] [address] 73827- 2986 Jun, [facility] [id number] [place] [address] 12133- 8367 Jun, [facility] [address] [place] [address] 29682- 2331 Jun, [facility] [address] [place] [address] 50594- 6921 Jun, [facility] [address] [place] [address] 39870- 4683 May, Diabetes E11.9 ; Other chronic pain G89.29 ; Acute recurrent maxillary sinusitis J01.01 ; Bipolar I disorder with depression F31.9 and Anxiety disorder, unspecified F41.9 [facility] [address] [place] [address] 06812- 0742 May, [place] [address] [place] [address] 56510- 0194 May, Diabetes E11.9 ; Bipolar I disorder with depression F31.9 ; Anxiety disorder, unspecified F41.9 ; Other chronic pain G89.29 and Acute recurrent maxillary sinusitis J01.01 [place] [id number] [place] [address] 23493- 0050 May, [place] [id number] [place] [address] 92057- 4684 May, Attention deficit hyperactivity disorder (ADHD), predominantly inattentive type F90.0 [place] [id number] [place] [address] 29819- 9152 May, [place] [id number] [place] [address] 85323- 9576 Apr, Attention deficit hyperactivity disorder (ADHD), predominantly inattentive type F90.0 and Non-seasonal allergic rhinitis due to other allergic trigger J30.89 [place] [id number] [place] [address] 86729- 5685 15 Apr, 2016 Bipolar 1 disorder, depressed, moderate F31.32 ; Panic disorder with agoraphobia F40.01 and Chronic post-traumatic stress disorder ( PTSD) F43.12 [place] [id number] [place] [address] 04726- 7703 06 Apr, 2016 Dental examination Z01.20 [place] [id number] [place] [address] 54753- 0930 Mar, [place] [id number] [place] [address] 05897- 3641 Mar, [place] [id number] [place] [address] 69995- 6196 17 Mar, 2016 Bipolar I disorder with depression F31.9 and Anxiety disorder, unspecified F41.9 [place] [id number] [place] [address] 22939- 1356 08 Mar, 2016 Panic disorder with agoraphobia F40.01 ; Bipolar 1 disorder , depressed, moderate F31.32 and Chronic post-traumatic stress disorder (PTSD) F43.12 [place] [address] 66482- 4218 Mar, [place] [address] 02789- 2756 Mar, Dental caries K02.9 [place] [address] 21612- 1320 24 Feb, 2016 Lumbago with sciatica, left side M54.42 ; Lumbago with sciatica, right side M54.41 and Other chronic pain G89.29 [place] [address] 25649- 6692 17 Feb, 2016 [place] [address] 03592- 0921 14 Feb, 2016 [place] [address] 04622- 5132 13 Feb, 2016 Bipolar I disorder with depression F31.9 ; PTSD (post- traumatic stress disorder) F43.10 and Mood disorder F39 [place] [id number] [place] [address] 44263- 0504 13 Feb, 2016 [place] [address] 43664- 7645 Feb, Dental examination Z01.20 [place] [address] 77097- 0911 07 Feb, 2016 [facility] [address] 64001 -4505 03 Feb, 2016 Acute bronchitis, unspecified organism J20.9 [place] [id number] [place] [address] 91390- 8013 26 Jan, 2016 Mood disorder F39 ; Migraine without aura and without status migrainosus, not intractable G43.009 ; Irritable bowel syndrome, unspecified type K58.9 ; Diabetes E11.9 and Encounter for immunization Z23 [facility] [id number] [place] [address] 64688- 4001 Jan, [facility] [id number] [place] [address] 22009- 4145 Jan, [facility] [id number] [place] [address] 45062- 5495 Jan, [facility] [id number] [place] [address] 65415- 2386 Jan, [facility] [id number] [place] [address] 92764- 2921 Jan, [facility] [id number] [place] [address] 12880- 8658 Dec, Bipolar I disorder with depression F31.9 ; PTSD (post- traumatic stress disorder) F43.10 and Panic disorder with agoraphobia F40.01 [facility] [id number] [place] [address] 02287- 8507 Dec, Chronic obstructive pulmonary disease, unspecified COPD type J44.9 ; Tremor R25.1 and Anxiety F41.9 [place] [id number] [place] [address] 64625- 0702 Dec, [facility] [id number] [place] [address] 54477- 7817 Nov, Tremors of nervous system R25.1 and Cramping of feet R25.2 [facility] [id number] [place] [address] [phone]- [phone] Nov, [facility] [id number] [place] [address] [phone] Nov, [facility] [id number] [place] [address] [phone] Oct, Chronic obstructive pulmonary disease, unspecified J44.9 [place] [id number] [address] Oct, [facility] [id number] [place] [address] [phone]- [phone] Oct, Tremor R25.1 [facility] [id number] [address] Oct, Bipolar I disorder with depression F31.9 ; Diabetes E11.9 ; PTSD (post-traumatic stress disorder) F43.10 and Panic disorder with agoraphobia F40.01 [place] [id number] [place] [address] [phone]- [phone] Oct, Mood disorder F39 [facility] [id number] [place] [address] [phone]- [phone] September, [place] [id number] [place] [address] 77664- 5938 September, Diabetes E11.9 ; Bipolar I disorder with depression F31.9 ; PTSD (post-traumatic stress disorder) F43.10 and Panic disorder with agoraphobia F40.01 [place] [id number] [place] [address] 29897- 7628 September, Mood disorder F39 ; Schizoaffective disorder, unspecified type F25.9 ; Arthritis M19.90 ; Tremor R25.1 ; Acute non-recurrent frontal sinusitis J01.10 and Blood in stool K92.1 [place] [address] [address] September, [place] [id number] [place] [address] 40954- 0399 September, Chronic obstructive pulmonary disease, unspecified J44.9 [facility] [id number] [place] [address] 07691- 9610 September, Diabetes E11.9 [place] [id number] [place] [address] 10709- 0013 Aug, Other bipolar disorder F31.89 and Anxiety disorder, unspecified F41.9 [facility] [id number] [place] [address] 61635- 1156 Aug, [facility] [id number] [place] [address] 16161- 8836 Aug, Diabetes E11.9 [facility] [id number] [place] [address] 10913 2546 18 Aug, 2015 [facility] [id number] [place] [address] 67427 2546 14 Aug, 2015 Diabetes E11.9 ; Fatigue R53.83 and Dizziness R42 [facility] [id number] [place] [address] 70187 2546 13 Aug, 2015 Other bipolar disorder F31.89 [facility] [id number] [place] [address] 59513- 2316 Aug, Generalized anxiety disorder F41.1 [facility] [id number] [place] [address] 12459 2549 07 Aug, 2015 Other bipolar disorder F31.89 and Anxiety disorder, unspecified F41.9 [facility] [id number] [place] [address] 79622- 1562 Aug, [facility] [id number] [place] [address] 35660- 5262 Jul, [facility] [id number] [place] [address] 39093 2542 Jul, [facility] [id number] [place] [address] 27080 2540 Jul, Bronchitis J40 [facility] [id number] [place] [address] 98294- 4740 Jul, Anxiety disorder F41.9 [facility] [id number] [place] [address] 93729- 6926 Jul, Other bipolar disorder F31.89 and Anxiety disorder, unspecified F41.9 [facility] [id number] [place] [address] 42414- 7851 Jul, Other bipolar disorder F31.89 and Fibromyalgia M79.7 [facility] [id number] [place] [address] 61865- 6472 Jul, [place] [address] 89602- 1523 Jul, [facility] [id number] [place] [address] 09524- 8324 Jul, [place] [address] 60661- 1478 Jul, Other bipolar disorder F31.89 and Anxiety disorder, unspecified F41.9 [place] [address] 60148- 5694 Jun, GERD (gastroesophageal reflux disease) K21.9 [place] [id number] [place] [address] 44899- 4234 Jun, [place] [address] 75795- 2757 May, [place] [id number] [place] [address] 93051- 6230 May, Diabetes E11.9 ; Back pain M54.9 ; GERD (gastroesophageal reflux disease) K21.9 ; Hypertension I10 and Peripheral neuropathy G62.9 [place] [id number] [place] [address] 12260- 3516 Mar, [place] [address] 45309- 7715 Mar, [place] [id number] [place] [address] 28603- 5867 Mar, Acute sinusitis J01.90 and Otitis media, left H66.92 [place] [id number] [place] [address] 91283- 3130 Feb, [facility] [id number] [place] [address] 16054- 5996 Feb, [facility] [id number] [place] [address] 24957- 7135 Feb, [facility] [id number] [place] [address] 54962- 3375 Feb, [facility] [id number] [place] [address] 11788- 9737 Jan, [facility] [id number] [place] [address] 01747- 4783 Jan, Diabetes 250.00 and Back pain 724.5 [facility] [id number] [place] [address] 41701- 6009 Jan, [facility] [id number] [place] [address] 39619- 7856 Dec, Diabetes 250.00 ; Benign essential hypertension 401.1 and Allergic rhinitis 477.9 [facility] [id number] [place] [address] 71596- 3127 Dec, [facility] [id number] [place] [address] 40017- 0587 Dec, [facility] [id number] [place] [address] 66937- 4802 Dec, Psychosis 298.9 [facility] [id number] [place] [address] 72393- 6997 Dec, Medication side effect 995.20 and Generalized anxiety disorder 300.02 [facility] [id number] [place] [address] 73333- 0001 Dec, Acquired cognitive dysfunction 294.9 [facility] [id number] [place] [address] 06844- 0959 Dec, [facility] [id number] [address]- 1164 Dec, Unspecified myalgia and myositis 729.1 and Generalized anxiety disorder 300.02 [facility] [id number] [place] [address] 50556- 2066 Nov, [facility] [id number] [place] [address] 66591- 7574 Nov, [facility] [id number] [place] [address] 67254- 4613 Nov, [facility] [id number] [place] [address] 41656- 0044 Nov, Upper respiratory infection 465.9 and Chronic airway obstruction, not elsewhere classified 496 [facility] [id number] [place] [address] 74427- 6554 Nov, Hyponatremia 276.1 [facility] [id number] [place] [address] 17690- 0268 Oct, [facility] [id number] [place] [address] 78797- 1460 Oct, [facility] [id number] [place] [address] 54267- 5239 Oct, [facility] [address] [place] [address] 04547- 2003 Oct, [facility] [id number] [place] [address] 19328- 7646 Oct, Hyponatremia 276.1 [facility] [address] [place] [address] 60473- 5988 Oct, [facility] [id number] [place] [address] 76488- 0687 Oct, [facility] [address] [place] [address] 11323- 7593 Oct, Generalized anxiety disorder 300.02 [facility] [id number] [place] [address] [place] [address]- 1331 Oct, Generalized anxiety disorder 300.02 and Diabetes 250.00 [facility] [id number] [address]- 4848 14 Aug, 2014 [facility] [address] [address]- 8198 Aug, [facility] [id number] [place] [address], [place] [address]- 9847 Jul, [facility] [address] [place] [address]- 7794 Jul, [facility] [id number] [place] [address], [place] [address]- 0283 Jun, [facility] [id number] [place] [address]- 0202 Jun, [facility] [id number] [place] [address], [place] [address]- 4580 Jun, [facility] [id number] [place] [address]- 8479 Jun, [facility] [address] [address]- 1165 Jun, [facility] [address] [address]- 7397 May, [facility] [address] [address]- 2527 May, [facility] [address] 1775 Apr, [facility] [address] 6894 Apr, [facility] [address] [address]- 3468 Apr, [facility] [address] [address]- 6277 Apr, [facility] [place] [facility] [address] [id number] [place] [address]- 4040 Apr, [facility] [place] [facility] [address] [id number] [place] [address]- 1706 Apr, [facility] [place] [facility] [address] [id number] [place] [address] 2544 Apr, [facility] [place] [facility] [address] [id number] [place] [address]- 4349 Apr, [facility] [place] [facility] [address] [id number] [place] [address]- 1934 Feb, [facility] [place] [facility] [address] [id number] [place] [address]- 6910 Feb, [facility] [place] [facility] [address] [id number] [place] [address]- 4909 Jan, [facility] [place] [facility] [address] [id number] [place] [address]- 4152 Jan, [facility] [place] [facility] [address] [id number] [place] [address]- 9489 Dec, [facility] [place] [facility] [address] [id number] [place] [address]- 3735 Dec, [facility] [place] [facility] [address] [id number] [address]- 5236 Dec, [facility] [place] [facility] [address] [id number] [place] [address]- 4189 Nov, [facility] [place] [facility] [address] [id number] [place] [address]- 5577 Nov, [facility] [place] [facility] [address] [id number] [place] [address]- 0355 Nov, [facility] [place] [facility] [address] [id number] [place] [address]- 2885 Oct, [facility] [place] [facility] [address] [id number] [place] [address]- 7863 Oct, [facility] [address] [id number] [place] [address]- 5399 Oct, [facility] [place] [facility] [address] [id number] [place] [address]- 8390 September, [facility] [address] [id number] [place] [address]- 8794 September, [facility] [address] [id number] [place] [address]- 4656 September, [facility] [address] [id number] [place] [address]- 4298 Aug, [facility] [address] [id number] [place] [address]- 3904 Aug, [facility] [address] [id number] [place] [address]- 4946 Aug, [facility] [address] [id number] [place] [address]- 7883 16 Aug, 2011 [facility] [address] [id number] [place] [address]- 2595 Jul, [facility] [address] [id number] [place] [address]- 9516 Jun, [facility] [address] [id number] [place] [address]- 7832 14 Jun, 2011 [facility] [address] [id number] [place] [address]- 7630 13 Jun, 2011 [facility] [place] [facility] [address] [id number] [place] [address]- 2483 07 Jun, 2011 [facility] [place] [facility] [address] [id number] [place] 7583 03 Jun, 2011 [facility] [place] [facility] [address] [id number] [place] [address]- 4062 13 May, 2011 [facility] [place] [facility] [address] [id number] [place] [address]- 8526 May, [facility] [place] [facility] [address] [id number] [place] [address]- 0696 May, [facility] [place] [facility] [address] [id number] [place] [address] 2546 May, [facility] [place] [facility] [address] [id number] [place] [address]- 8099 Apr, [facility] [place] [facility] [address] [id number] [place] [address]- 2699 Apr, [facility] [place] [facility] [address] [id number] [place] [address]- 8072 Apr, [facility] [place] [facility] [address] [id number] [place] [address]- 1530 Mar, [facility] [place] [facility] [address] [id number] [place] [address]- 6484 Mar, [facility] [place] [facility] [address] [id number] [place] [address]- 8819 Mar, [facility] [place] [facility] [address] [id number] [place] [address]- 4166 Feb, [facility] [place] [facility] [address] [id number] [address]- 6434 Feb, [facility] [place] [facility] [address] [id number] [address]- 3194 Feb, [facility] [place] [facility] [address] [id number] [place] [address]- 1857 Nov, [facility] [place] [facility] [address] [id number] [place] [address]- 3833 September, [facility] [place] [facility] [address] [id number] [place] [address]- 4011 Aug, [facility] [place] [facility] [address] [facility] [id number] [address]- 7109 14 Jul, 2010 [facility] [address] [facility] [id number] [address]- 8883 May, [facility] [id number] [address]- 0515 Apr, [facility] [address] [facility] [id number] [address]- 7731 Apr, [facility] [id number] [address]- 0106 Apr, [facility] [address] [facility] [id number] [address]- 8179 Apr, [facility] [id number] [address]- 8383 Apr, IMMUNIZATIONS No Known Immunizations SOCIAL HISTORY Never Assessed REASON FOR VISIT Controlled Med Refill PLAN OF CARE VITAL SIGNS MEDICATIONS Unknown Medications RESULTS No Results PROCEDURES No Known procedures [...]
--- OUTSIDE RECORDS SUMMARY | 2017-11-18 07:02 | XMS REPORT ---
Author Author JOHANN YVON Organization [facility] Address [address] [place] [address] Care Team Providers Care Lie Detector Operator Name Role Phone KYE WILLSA Unavailable PROBLEMS Type Condition ICD9-CM Code WXS22-GG Code Onset Dates Condition Status SNOMED Code Problem Back pain M54.9 Active 718564278 Problem GERD (gastroesophageal reflux disease) K21.9 Active 475185147 Problem Diabetes E11.9 Active 79429262 Problem Hypertension I10 Active 30365749 Problem Anxiety disorder, unspecified F41.9 Active 721778970 Problem Other bipolar disorder F31.89 Active 83015237 Problem Mild persistent asthma without complication J45.30 Active 376819452 Problem Fibromyalgia M79.7 Active 78427377 Problem Moderate persistent asthma without complication J45.40 Active 362456158 Problem Panic disorder with agoraphobia F40.01 Active 36142994 Problem Panlobular emphysema J43.1 Active 1572064 Problem Migraine without aura and without status migrainosus, not intractable G43.009 Active 657385057 Problem Akathisia G25.71 Active 220036231 Problem Schizoaffective disorder, bipolar type F25.0 Active 94091876 Problem Irritable bowel syndrome with both constipation and diarrhea K58.2 Active 86485959 Problem Lumbago with sciatica, left side M54.42 Active 096084232 Problem Other chronic pain G89.29 Active 23047087 Problem Chronic obstructive pulmonary disease, unspecified J44.9 Active 31281801 Problem Fibrocystic disease of left breast N60.12 Active 31876402 Problem Fibrocystic disease of right breast N60.11 Active 48134328 Problem Irritable bowel syndrome with constipation K58.1 Active 249413620 Problem Arthritis M19.90 Active 2202574 Problem Chronic post-traumatic stress disorder (PTSD) F43.12 Active 585491360 Problem Bipolar affective disorder, remission status unspecified F31.9 Active 02073286 Problem Lumbago with sciatica, right side M54.41 Active 600936804 Problem Bipolar 1 disorder, depressed, moderate F31.32 Active 96746164 Problem Acute non-recurrent maxillary sinusitis J01.00 Active 75496332 Problem Bipolar 1 disorder, depressed, partial remission F31.75 Active 20476764 Problem Attention deficit hyperactivity disorder (ADHD), predominantly inattentive type F90.0 Active 36121911 Problem Bipolar I disorder with depression F31.9 Active 16627280 ALLERGIES No Information ENCOUNTERS Encounter Location Date Diagnosis [facility] [address] [address]- [address] Nov, [facility] [address] [address]- [address] September, [place] [address] 1907[address]- 1405 September, Chronic obstructive pulmonary disease, unspecified COPD type J44.9 [place] [address] 56093- 3733 September, Migraine without aura and without status migrainosus, not intractable G43.009 [place] [address] 88414- 8883 September, [place] [address] 64142- 6059 September, [place] [address] [place] [id number] [place] [address] 01528- 6321 September, [facility] [address] 9[address]34- 7819 September, Frequent headaches R51 [place] [address] 81993- 0714 Aug, [place] [address] 08632- 5220 Aug, Breast mass, right N63.10 [facility] [address] 82824- 7138 Aug, Breast lump N63.0 [place] [address] [place] [id number] [place] [address] 31745- 6020 Aug, [place] [address] [place] [id number] [place] [address] 71193- 5204 Aug, Bipolar affective disorder, remission status unspecified F31.9 and Diabetes E11.9 [place] [address] 68829- 6830 Aug, Diabetes E11.9 ; Schizoaffective disorder, bipolar type F25.0 ; Pharyngitis due to other organism J02.8 ; Panlobular emphysema J43.1 and Irritable bowel syndrome with both constipation and diarrhea K58.2 [place] [address] [place] [id number] [place] [address] 55340- 4526 Aug, Abnormal mammogram R92.8 [place] [address] 99161- 1556 Aug, [place] [address] [place] [id number] [place] [address] 00393- 7610 Aug, Bipolar 1 disorder, depressed, moderate F31.32 ; Panic disorder with agoraphobia F40.01 and Chronic post-traumatic stress disorder ( PTSD) F43.12 [place] [address] [place] [id number] [place] [address] 53557- 2243 Aug, [place] [address] [place] [id number] [place] [address] 86635- 9511 Aug, [place] [address] [place] [id number] [place] [address] 67721- 9342 Aug, [place] [address] [place] [id number] [place] [address] 25528- 1467 Jul, [place] [address] [place] [id number] [place] [address] 87772- 0709 Jul, Mild persistent asthma without complication J45.30 [place] [address] [place] [address]- 6104 Jul, Mild persistent asthma without complication J45.30 [facility] [address] [place] [id number] [place] [address] 05876- 7704 15 Jul, 2017 Bipolar affective disorder, remission status unspecified F31.9 ; Diabetes E11.9 and Irritable bowel syndrome with constipation K58.1 [facility] [address] [place] [id number] [place] [address] 87732- 3751 Jul, [facility] [address] 63372- 9994 Jul, [facility] [address] 26575- 6870 Jul, Frequent headaches R51 [facility] [address] [place] [id number] [place] [address] 21021- 3928 Jul, [facility] [address] [place] [id number] [place] [address] 59613- 9300 Jul, [facility] [address] [place] [id number] [place] [address] 10597- 4719 Jul, [facility] [address] [place] [id number] [place] [address] 04025- 0353 Jul, Frequent headaches R51 ; Fibrocystic disease of left breast N60.12 ; Fibrocystic disease of right breast N60.11 and Diabetes E11.9 [facility] [address] [place] [id number] [place] [address] 73765- 2499 Jul, [facility] [address] [place] [id number] [place] [address] 86625- 1725 Jul, [facility] [address] [place] [id number] [place] [address] 39492- 7022 Jun, Exudative tonsillitis J03.90 [facility] [address] [place] [id number] [place] [address] 51743- 9158 Jun, [facility] [address] 02957- 0253 19 Jun, 2017 [facility] [address] 57550- 4435 15 Jun, 2017 Mild persistent asthma without complication J45.30 ; Chronic obstructive pulmonary disease, unspecified COPD type J44.9 and Exudative tonsillitis J03.90 [facility] [address] 23147- 5392 13 Jun, 2017 Encounter for immunization Z23 [facility] [address] 55258- 2739 Jun, [facility] [address] 25034- 5185 Jun, [facility] [address] 46850- 4881 Jun, [facility] [address] [address]26 06 Jun, 2017 Tonsillitis J03.90 [facility] [address] 12990- 0176 05 Jun, 2017 [facility] [address] 14113- 9292 03 Jun, 2017 Acute non-recurrent maxillary sinusitis J01.00 [facility] [address] 19010- 2809 Jun, [facility] [address] [place] [id number] [place] [address] 55489- 3606 May, [facility] [address] 15168- 8592 May, [facility] [address] 12514- 2788 May, GERD (gastroesophageal reflux disease) K21.9 [facility] [address] 31128- 6833 May, Migraine without aura and without status migrainosus, not intractable G43.009 [place] [address] 64091- 9277 May, [facility] [address] [place] [id number] [place] [address] 74270- 1183 May, [place] [address] 22011- 8191 May, Panlobular emphysema J43.1 and Acute non-recurrent maxillary sinusitis J01.00 [place] [address] 63354- 1111 May, Bipolar 1 disorder, depressed, moderate F31.32 ; Panic disorder with agoraphobia F40.01 and Akathisia G25.71 [place] [address] 51492- 2431 Apr, [place] [address] [place] [id number] [place] [address] 15566- 0855 Apr, [place] [address] 56951- 1698 Apr, Acute non-recurrent maxillary sinusitis J01.00 [place] [address] [place] [id number] [place] [address] 03225- 0330 Apr, Panlobular emphysema J43.1 [place] [address] [place] [id number] [place] [address] 67385- 5125 Apr, [facility] [address] [place] [id number] [place] [address] 87675 -0716 Apr, Exudative tonsillitis J03.90 and Sore throat J02.9 [place] [address] [place] [id number] [place] [address] 72172- 4924 Mar, [place] [address] 24500- 5963 Mar, Acute non-recurrent maxillary sinusitis J01.00 [facility] [address] [place] [id number] [place] [address] 08344- 3417 Mar, [facility] [address] 74377- 8748 Mar, Panlobular emphysema J43.1 and Diabetes E11.9 [place] [address] 57490- 9469 Mar, [facility] [address] 60132 -6437 Feb, Wheezing R06.2 and Acute recurrent pansinusitis J01.41 [place] [address] 37018- 2145 Feb, [place] [address] 44802- 5517 Feb, Acute non-recurrent maxillary sinusitis J01.00 [place] [address] [place] [id number] [place] [address] 28699- 9968 Feb, Chronic obstructive pulmonary disease, unspecified J44.9 [place] [address] 99925- 3971 Feb, Hypoxemia R09.02 and Chronic obstructive pulmonary disease, unspecified J44.9 [place] [address] [place] [id number] [place] [address] 22659- 4087 28 Jan, 2017 Bipolar 1 disorder, depressed, moderate F31.32 ; Panic disorder with agoraphobia F40.01 ; Chronic post-traumatic stress disorder (PTSD ) F43.12 ; Diabetes E11.9 and Moderate persistent asthma without complication J45.40 [place] [address] [place] [id number] [place] [address] 14176- 5820 Jan, [facility] [address] [place] [id number] [place] [address] 90506- 9316 Jan, Acute non-recurrent maxillary sinusitis J01.00 [facility] [address] [place] [address] 00316- 5894 18 Jan, 2017 [facility] [address] [place] [id number] [place] [address] 60007- 9836 Jan, [facility] [address] [place] [id number] [place] [address] 09470 2546 Jan, Moderate persistent asthma without complication J45.40 and Hypoxemia R09.02 [facility] [address] [place] [id number] [place] [address] 79972 2546 Jan, Moderate persistent asthma without complication J45.40 and Hypoxemia R09.02 [facility] [address] [place] [id number] [place] [address] 87402- 8026 Jan, [facility] [address] [place] [id number] [place] [address] 93979- 7675 Dec, Acute non-recurrent maxillary sinusitis J01.00 [facility] [address] [place] [id number] [place] [address] 51566- 4288 Dec, Chronic obstructive pulmonary disease, unspecified J44.9 [facility] [address] 41052- 9826 Dec, [facility] [address] [place] [id number] [place] [address] 28905- 7693 Dec, Mild persistent asthma without complication J45.30 and Other chronic pain G89.29 [facility] [address] [place] [id number] [place] [address] 70248- 4937 Nov, [facility] [address] [place] [id number] [place] [address] 75507- 5466 Nov, Acute non-recurrent maxillary sinusitis J01.00 [facility] [address] [place] [id number] [place] [address] 61752- 6849 Nov, [facility] [address] [place] [id number] [place] [address] 94799- 1098 Nov, [place] [address] [place] [address] 30327- 6199 Oct, [place] [address] [place] [id number] [place] [address] 73093- 5674 Oct, Bipolar 1 disorder, depressed, partial remission F31.75 ; Panic disorder with agoraphobia F40.01 and Chronic post-traumatic stress disorder (PTSD) F43.12 [place] [address] [place] [id number] [place] [address] 97844- 5758 Oct, Acute non-recurrent maxillary sinusitis J01.00 [place] [address] [place] [id number] [place] [address] 26480- 6721 Oct, [place] [address] [place] [id number] [place] [address] 57366- 6180 Oct, Diabetes E11.9 [place] [address] [place] [id number] [place] [address] 81800- 2366 September, Diabetes E11.9 [place] [address] [place] [id number] [place] [address] 22076- 2059 September, Diabetes E11.9 and Sinus tachycardia R00.0 [place] [address] [place] [id number] [place] [address] 43770- 3836 September, [place] [address] [place] [id number] [place] [address] 38704- 7942 September, [place] [address] [place] [id number] [place] [address] 97276- 6177 Aug, Diabetes E11.9 and Lumbago with sciatica, right side M54.41 [place] [address] [place] [id number] [place] [address] 92571- 6644 Aug, [place] [address] [place] [id number] [place] [address] 59392- 1609 Jul, Bipolar 1 disorder, depressed, moderate F31.32 ; Panic disorder with agoraphobia F40.01 and Chronic post-traumatic stress disorder ( PTSD) F43.12 [facility] [address] [address]- 5521 Jul, Sore throat J02.9 [facility] [address] [place] [address]- 0897 Jul, [facility] [address] [place] [address]- 8979 Jul, [facility] [address] [place] [address]- 8244 Jul, [facility] [address] [place] [address]- 2477 Jul, [facility] [address] [place] [address] 15189- 5834 Jul, Sore throat J02.9 and Pharyngitis, unspecified etiology J02.9 [facility] [address] [address]- 8699 27 Jun, 2016 [facility] [address] [place] [address]- 0629 23 Jun, 2016 Diabetes E11.9 [facility] [address] [place] [address]- 7498 20 Jun, 2016 [facility] [address] [place] [address]- 2574 16 Jun, 2016 [facility] [address] [place] [address]- 5026 Jun, [facility] [address] [place] [address]- 5059 Jun, [facility] [address] [place] [address]- 6895 16 Jun, 2016 [facility] [address] [place] [address]- 6480 15 Jun, 2016 [facility] [address] [place] [address]- 3675 10 Jun, 2016 [place] [address] [place] [id number] [place] [address] 91193- 7200 Jun, [place] [address] [place] [id number] [place] [address] 45935- 8412 May, Diabetes E11.9 ; Other chronic pain G89.29 ; Acute recurrent maxillary sinusitis J01.01 ; Bipolar I disorder with depression F31.9 and Anxiety disorder, unspecified F41.9 [place] [address] [place] [address] 79694- 0263 May, [place] [address] [place] [address] [place] [address] 79354- 2629 May, Diabetes E11.9 ; Bipolar I disorder with depression F31.9 ; Anxiety disorder, unspecified F41.9 ; Other chronic pain G89.29 and Acute recurrent maxillary sinusitis J01.01 [place] [address] [place] [address] [place] [address] 99115- 3001 May, [place] [address] [place] [address] [place] [address] 36814- 1758 May, Attention deficit hyperactivity disorder (ADHD), predominantly inattentive type F90.0 [place] [address] [place] [id number] [place] [address] 59883- 4230 May, [place] [address] [place] [address] 70203- 3133 Apr, Attention deficit hyperactivity disorder (ADHD), predominantly inattentive type F90.0 and Non-seasonal allergic rhinitis due to other allergic trigger J30.89 [place] [address] [place] [address] [place] [address] 08557- 4231 Apr, Bipolar 1 disorder, depressed, moderate F31.32 ; Panic disorder with agoraphobia F40.01 and Chronic post-traumatic stress disorder ( PTSD) F43.12 [place] [address] [place] [id number] [place] [address] 90689- 4260 Apr, Dental examination Z01.20 [facility] [address] [place] [id number] [place] [address] 56359- 3805 Mar, [facility] [address] [place] [id number] [place] [address] 35703- 8413 Mar, [facility] [address] [place] [id number] [place] [address] 79912- 4047 Mar, Bipolar I disorder with depression F31.9 and Anxiety disorder, unspecified F41.9 [place] [address] [place] [id number] [place] [address] 16450- 0362 Mar, Panic disorder with agoraphobia F40.01 ; Bipolar 1 disorder , depressed, moderate F31.32 and Chronic post-traumatic stress disorder (PTSD) F43.12 [place] [address] [place] [id number] [place] [address] 75366- 4473 Mar, [place] [address] [place] [id number] [place] [address] 56669- 4124 Mar, Dental caries K02.9 [place] [address] [place] [address] [place] [address] 99316- 3862 Feb, Lumbago with sciatica, left side M54.42 ; Lumbago with sciatica, right side M54.41 and Other chronic pain G89.29 [place] [address] [place] [address] [place] [address] 77804- 5385 Feb, [facility] [address] [place] [id number] [place] [address] 77165- 8606 14 Feb, 2016 [place] [address] [place] [id number] [place] [address] 68746- 0335 Feb, Bipolar I disorder with depression F31.9 ; PTSD (post- traumatic stress disorder) F43.10 and Mood disorder F39 [facility] [address] [place] [id number] [place] [address] 41918- 5639 Feb, [place] [address] [place] [id number] [place] [address] 16557- 6530 11 Feb, 2016 Dental examination Z01.20 [place] [address] 69920- 9124 Feb, [facility] [address] 42756 -1286 03 Feb, 2016 Acute bronchitis, unspecified organism J20.9 [facility] [address] 24477- 0165 Jan, Mood disorder F39 ; Migraine without aura and without status migrainosus, not intractable G43.009 ; Irritable bowel syndrome, unspecified type K58.9 ; Diabetes E11.9 and Encounter for immunization Z23 [place] [address] 47225- 6897 15 Jan, 2016 [place] [address] 62536- 0679 Jan, [place] [address] 68527- 5889 Jan, [place] [address] 06923- 1832 Jan, [place] [address] 84162- 3091 Jan, [facility] [address] 39436- 0143 Dec, Bipolar I disorder with depression F31.9 ; PTSD (post- traumatic stress disorder) F43.10 and Panic disorder with agoraphobia F40.01 [place] [address] 48336- 2103 Dec, Chronic obstructive pulmonary disease, unspecified COPD type J44.9 ; Tremor R25.1 and Anxiety F41.9 [place] [address] 83005- 1688 Dec, [facility] [address] [address]- 2196 Nov, Tremors of nervous system R25.1 and Cramping of feet R25.2 [facility] [address] [address]- 1228 Nov, [facility] [id number] [place] [address]- 9232 Nov, [facility] [address] [place] [address] 91958- 5755 Oct, Chronic obstructive pulmonary disease, unspecified J44.9 [facility] [id number] [place] [address] 82388- 9689 Oct, [facility] [address], [place] [address]- 2990 Oct, Tremor R25.1 [facility] [id number] [place] [address] 77710- 5657 Oct, Bipolar I disorder with depression F31.9 ; Diabetes E11.9 ; PTSD (post-traumatic stress disorder) F43.10 and Panic disorder with agoraphobia F40.01 [facility] [address] [place] [address]- 7596 Oct, Mood disorder F39 [place] [address] [place] [address]- 2144 September, [facility] [address] [address]- 9997 September, Diabetes E11.9 ; Bipolar I disorder with depression F31.9 ; PTSD (post-traumatic stress disorder) F43.10 and Panic disorder with agoraphobia F40.01 [facility] [address] [place] [address]- 5956 September, Mood disorder F39 ; Schizoaffective disorder, unspecified type F25.9 ; Arthritis M19.90 ; Tremor R25.1 ; Acute non-recurrent frontal sinusitis J01.10 and Blood in stool K92.1 [facility] [id number] [place] [address] September, [facility] [id number] [place] [address] September, Chronic obstructive pulmonary disease, unspecified J44.9 [facility] [address] [address] September, Diabetes E11.9 [facility] [id number] [place] [address] Aug, Other bipolar disorder F31.89 and Anxiety disorder, unspecified F41.9 [facility] [id number] [place] [address] Aug, [facility] [address] [address] Aug, Diabetes E11.9 [facility] [id number] [place] [address] Aug, [facility] [address] [address] Aug, Diabetes E11.9 ; Fatigue R53.83 and Dizziness R42 [facility] [id number] [place] [address] Aug, Other bipolar disorder F31.89 [facility] [id number] [place] [address]- [address] Aug, Generalized anxiety disorder F41.1 [facility] [id number] [place] [address] Aug, Other bipolar disorder F31.89 and Anxiety disorder, unspecified F41.9 [facility] [id number] [place] [address] Aug, [facility] [address] [place] [address] 29 Jul, 2015 [facility] [id number] [place] [address] 24 Jul, 2015 [facility] [id number] [place] [address] 81155- 6376 Jul, Bronchitis J40 [facility] [id number] [place] [address] 88511- 9634 Jul, Anxiety disorder F41.9 [facility] [id number] [place] [address] 60495- 2558 Jul, Other bipolar disorder F31.89 and Anxiety disorder, unspecified F41.9 [facility] [id number] [place] [address] 43987- 6556 Jul, Other bipolar disorder F31.89 and Fibromyalgia M79.7 [facility] [id number] [place] [address] 77377- 1037 Jul, [facility] [id number] [place] [address] 60473- 8338 Jul, [facility] [id number] [place] [address] 91304- 0860 Jul, [facility] [id number] [place] [address] 11655- 9664 Jul, Other bipolar disorder F31.89 and Anxiety disorder, unspecified F41.9 [facility] [id number] [place] [address] 74860- 2166 Jun, GERD (gastroesophageal reflux disease) K21.9 [facility] [id number] [place] [address] 16875- 7315 Jun, [facility] [id number] [place] [address] 27333- 6193 May, [facility] [id number] [place] [address] 35579- 8340 May, Diabetes E11.9 ; Back pain M54.9 ; GERD (gastroesophageal reflux disease) K21.9 ; Hypertension I10 and Peripheral neuropathy G62.9 [facility] [id number] [place] [address] 25149- 4318 Mar, [facility] [id number] [place] [address] 89645- 0151 Mar, [facility] [address] 05068- 8699 Mar, Acute sinusitis J01.90 and Otitis media, left H66.92 [facility] [id number] [place] [address] 57589- 7755 Feb, [facility] [id number] [place] [address] 20708- 0888 Feb, [facility] [address] 94840- 5442 Feb, [facility] [id number] [place] [address] 36892- 6433 Feb, [facility] [id number] [place] [address] 16357- 8539 Jan, [facility] [id number] [place] [address] 41764- 0058 Jan, Diabetes 250.00 and Back pain 724.5 [facility] [id number] [place] [address] 48074- 8120 Jan, [facility] [id number] [place] [address] 41711- 0680 Dec, Diabetes 250.00 ; Benign essential hypertension 401.1 and Allergic rhinitis 477.9 [facility] [id number] [place] [address] 73208- 4930 Dec, [facility] [id number] [place] [address] 33066- 8309 Dec, [facility] [id number] [place] [address] 85620- 4613 Dec, Psychosis 298.9 [facility] [id number] [place] [address] 00952- 0507 Dec, Medication side effect 995.20 and Generalized anxiety disorder 300.02 [facility] [id number] [place] [address] 66145- 7675 Dec, Acquired cognitive dysfunction 294.9 [facility] [id number] [place] [address] 29277- 2349 Dec, [facility] [id number] [place] [address] 29168- 0224 Dec, Unspecified myalgia and myositis 729.1 and Generalized anxiety disorder 300.02 [facility] [id number] [place] [address] 90913- 6773 Nov, [facility] [id number] [place] [address] 14735- 5730 Nov, [facility] [id number] [place] [address] 18928- 8536 Nov, [facility] [id number] [place] [address] 04919- 4941 Nov, Upper respiratory infection 465.9 and Chronic airway obstruction, not elsewhere classified 496 [facility] [id number] [place] [address] 13163- 2840 Nov, Hyponatremia 276.1 [facility] [id number] [place] [address] 21536- 4618 Oct, [facility] [id number] [place] [address] 23919- 9566 Oct, [facility] [id number] [place] [address] 01022- 2834 Oct, [facility] [id number] [place] [address] 33986- 2792 Oct, [facility] [address] [address]- 4627 Oct, Hyponatremia 276.1 [facility] [id number] [place] [address] 02347- 2765 Oct, [facility] [address] [address]- 4243 Oct, [facility] [id number] [place] [address] 86468- 3511 Oct, Generalized anxiety disorder 300.02 [facility] [id number] [place] [address] 24100- 0903 Oct, Generalized anxiety disorder 300.02 and Diabetes 250.00 [facility] [address] [address]- 9803 Aug, [facility] [id number] [place] [address] 48514- 2556 Aug, [facility] [address] [address]- 9197 Jul, [facility] [id number] [place] [address] 80012- 0671 Jul, [facility] [id number] [address]- 9804 Jun, [facility] [id number] [address]- 7869 Jun, [facility] [id number] [place] [address]- 7578 Jun, [facility] [id number] [address]- 2396 Jun, [facility] [id number] [place] [address]- 8256 Jun, [facility] [id number] [place] [address] 14967- 4453 May, [facility] [address] [id number] [place] [address]- 5699 May, [facility] [address] [facility] [id number] [place] [address]- 2183 Apr, [facility] [address] [facility] [id number] [place] [address]- 4540 Apr, [facility] [place] [facility] [address] [id number] [place] [address]- 9833 Apr, [facility] [address] [id number] [place] 5206 Apr, [facility] [place] [facility] [address] [facility] [id number] [place] [address]- 9935 Apr, [facility] [id number] [address]- 2662 Apr, [facility] [place] [facility] [address] [id number] [place] [address]- 7501 Apr, [facility] [id number] [place] [address]- 2769 Apr, [facility] [place] [facility] [address] [facility] [id number] [place] [address]- 0938 Feb, [facility] [place] [facility] [address] [facility] [id number] [place] [address]- 1065 Feb, [facility] [place] [facility] [address] [id number], [place] [address]- 8794 Jan, [facility] [place] [facility] [address] [id number] [place] [address]- 0293 Jan, [facility] [place] [facility] [address] [facility] [id number], [place] [address]- 1925 Dec, [facility] [place] [facility] [address] [facility] [id number] [place] [address]- 8962 Dec, [facility] [place] [facility] [address] [id number] [place] [address]- 5992 Dec, [facility] [place] [facility] [address] [id number] [place] [address]- 4653 Nov, [facility] [place] [facility] [address] [id number] [place] [address]- 2546 Nov, [facility] [place] [facility] [address] [id number] [place] [address]- 4334 Nov, [facility] [place] [facility] [address] [id number] [place] [address]- 4741 Oct, [facility] [place] [facility] [address] [id number] [place] [address]- 0102 Oct, [facility] [place] [facility] [address] [id number] [place] [address]- 5408 Oct, [facility] [place] [facility] [address] [id number] [place] [address]- 9492 September, [facility] [place] [facility] [address] [id number] [place] [address]- 5895 September, [facility] [place] [facility] [address] [id number] [place] [address]- 9798 September, [facility] [place] [facility] [address] [id number] [place] [address]- 2984 Aug, [facility] [place] [facility] [address] [id number] [place] [address]- 5137 Aug, [facility] [place] [facility] [address] [id number] [place] [address]- 0772 Aug, [facility] [place] [facility] [address] [id number] [place] [address]- 4468 Aug, [facility] [place] [facility] [address] [id number] [place] [address]- 4708 Jul, [facility] [place] [facility] [address] [id number] [place] [address]- 1277 Jun, [facility] [address] [id number] [place] [address]- 7038 14 Jun, 2011 [facility] [place] [facility] [address] [id number] [place] [address]- 8401 13 Jun, 2011 [facility] [place] [facility] [address] [id number] [place] [address]- 6486 Jun, [facility] [place] [facility] [address] [id number] [place] [address]- 6707 Jun, [facility] [place] [facility] [address] [id number] [place] [address]- 8289 May, [facility] [place] [facility] [address] [id number] [place] [address]- 5368 May, [facility] [address] [id number] [place] [address]- 7351 May, [facility] [place] [facility] [address] [id number] [place] [address]- 4313 May, [facility] [place] [facility] [address] [id number] [place] [address]- 2450 Apr, [facility] [place] [facility] [address] [id number] [place] [address]- 2055 Apr, [facility] [place] [facility] [address] [id number], [place] [address]- 1914 Apr, [facility] [place] [facility] [address] [id number], [place] [address]- 1565 Mar, [facility] [place] [facility] [address] [id number] [place] [address]- 0877 Mar, [facility] [place] [facility] [address] [facility] [id number], [place] [address]- 7298 Mar, [facility] [place] [facility] [address] [id number] [place] [address]- 0629 Feb, [facility] [place] [facility] [id number] [address]- 2546 13 Feb, 2011 [facility] [id number] [address] 2546 13 Feb, 2011 [facility] [id number], [place] [address]- 2546 Nov, [facility] [id number] [place] [address]- 2546 September, [facility] [id number] [place] [address]- 2546 Aug, [facility] [id number], [place] [address]- 6276 Jul, [facility] [id number], [place] [address]- 2546 May, [facility] [id number], [place] [address]- 8846 Apr, [facility] [id number], [place] [address]- 8424 Apr, [facility] [id number] [place] [address]- 7846 Apr, [facility] [id number], [place] [address]- 9306 Apr, [facility] [id number] [address] 2546 Apr, IMMUNIZATIONS No Known Immunizations SOCIAL HISTORY Never Assessed REASON FOR VISIT Medication refill request PLAN OF CARE VITAL SIGNS MEDICATIONS Medication Instructions Dosage Frequency Start Date End Date Duration Status Lamictal 100 mg Orally 2 times a day 1 tablet 12h September, 30 days Active Lorazepam 2 MG Orally in the AM and noon and 4pm 1 tablet Jul, 30 days Active RESULTS No Results PROCEDURES No Known [...]
--- OUTSIDE RECORDS SUMMARY | 2017-11-18 07:03 | XMS REPORT ---
Author Author WHIT GANDHI [facility] Address [address] [place] [address] Care Team Providers Care Laboratory Sample Carrier Name Role Phone WHIT GANDHI Unavailable PROBLEMS Type Condition ICD9-CM Code FRG42-RX Code Onset Dates Condition Status SNOMED Code Problem Back pain M54.9 Active 126231402 Problem GERD (gastroesophageal reflux disease) K21.9 Active 660635154 Problem Diabetes E11.9 Active 83056315 Problem Hypertension I10 Active 69728643 Problem Anxiety disorder, unspecified F41.9 Active 334885233 Problem Other bipolar disorder F31.89 Active 58550214 Problem Mild persistent asthma without complication J45.30 Active 501146797 Problem Fibromyalgia M79.7 Active 02275881 Problem Moderate persistent asthma without complication J45.40 Active 085422986 Problem Panic disorder with agoraphobia F40.01 Active 56061648 Problem Panlobular emphysema J43.1 Active 1303851 Problem Migraine without aura and without status migrainosus, not intractable G43.009 Active 618054464 Problem Akathisia G25.71 Active 087250287 Problem Schizoaffective disorder, bipolar type F25.0 Active 08479578 Problem Irritable bowel syndrome with both constipation and diarrhea K58.2 Active 97257293 Problem Lumbago with sciatica, left side M54.42 Active 501102544 Problem Other chronic pain G89.29 Active 95450270 Problem Chronic obstructive pulmonary disease, unspecified J44.9 Active 23041373 Problem Fibrocystic disease of left breast N60.12 Active 78944639 Problem Fibrocystic disease of right breast N60.11 Active 94564729 Problem Irritable bowel syndrome with constipation K58.1 Active 609487527 Problem Arthritis M19.90 Active 9854271 Problem Chronic post-traumatic stress disorder (PTSD) F43.12 Active 799637127 Problem Bipolar affective disorder, remission status unspecified F31.9 Active 27124993 Problem Lumbago with sciatica, right side M54.41 Active 144385096 Problem Bipolar 1 disorder, depressed, moderate F31.32 Active 60773063 Problem Acute non-recurrent maxillary sinusitis J01.00 Active 55487627 Problem Bipolar 1 disorder, depressed, partial remission F31.75 Active 66875413 Problem Attention deficit hyperactivity disorder (ADHD), predominantly inattentive type F90.0 Active 89298574 Problem Bipolar I disorder with depression F31.9 Active 66569750 ALLERGIES No Information ENCOUNTERS Encounter Location Date Diagnosis [facility], [place] [id number] [place] [address] 15406- 4062 Nov, [facility], [place] [id number] [place] [address] 72242- 9003 September, [facility], [place] [address] 36142- 2281 September, [facility], [place] [address] 84574- 2339 September, [facility], [place] [id number] [place] [address] 04171- 9901 September, Frequent headaches R51 [facility], [place] [id number] [place] [address] 34962- 8759 Aug, [facility], [place] [id number] [place] [address] 93530- 8049 Aug, Breast mass, right N63.10 [facility], [place] [id number] [place] [address] 86706- 0759 Aug, Breast lump N63.0 [facility], [place] [id number] [place] [address] 52093- 7166 Aug, [facility], [place] [id number] [place] [address] 83340- 4862 Aug, Bipolar affective disorder, remission status unspecified F31.9 and Diabetes E11.9 [facility], [place] [id number] [place] [address] 19089- 3445 Aug, Diabetes E11.9 ; Schizoaffective disorder, bipolar type F25.0 ; Pharyngitis due to other organism J02.8 ; Panlobular emphysema J43.1 and Irritable bowel syndrome with both constipation and diarrhea K58.2 [facility] [id number] [place] [address] 17161- 4963 Aug, Abnormal mammogram R92.8 [facility] [address] 498145- 0511 Aug, [facility] [address] 34375- 8711 Aug, Bipolar 1 disorder, depressed, moderate F31.32 ; Panic disorder with agoraphobia F40.01 and Chronic post-traumatic stress disorder ( PTSD) F43.12 [facility] [id number] [place] [address] 68352- 3123 Aug, [facility] [address] 48767- 6156 Aug, [facility] [id number] [place] [address] 73129- 5148 Aug, [facility] [address] 71907- 1131 Jul, [facility] [id number] [place] [address] 55414- 7095 Jul, Mild persistent asthma without complication J45.30 [facility] [id number] [place] [address] 08754- 8965 19 Jul, 2017 Mild persistent asthma without complication J45.30 [facility] [id number] [place] [address] 31786- 1099 15 Jul, 2017 Bipolar affective disorder, remission status unspecified F31.9 ; Diabetes E11.9 and Irritable bowel syndrome with constipation K58.1 [facility] [id number] [place] [address] 91728- 8699 Jul, [facility] [address] [address] 6291 Jul, [facility], [place] [id number] [place] [address] 32615- 1242 Jul, Frequent headaches R51 [facility], [place] [id number] [place] [address] 33868- 0123 Jul, [facility], [place] [id number] [place] [address] 34643- 7905 Jul, [facility], [place] [id number] [place] [address] 42117- 1439 Jul, [facility], [place] [id number] [place] [address] 35654- 2464 Jul, Frequent headaches R51 ; Fibrocystic disease of left breast N60.12 ; Fibrocystic disease of right breast N60.11 and Diabetes E11.9 [facility] [id number] [place] [address] 05035- 2783 Jul, [facility], [place] [id number] [place] [address] 45256- 9187 Jul, [facility] [id number] [place] [address] 45663- 3603 Jun, Exudative tonsillitis J03.90 [facility] [id number] [address]- 4162 Jun, [facility] [id number] [place] [address] 48812- 9746 19 Jun, 2017 [facility] [id number] [place] [address] 71028- 9837 15 Jun, 2017 Mild persistent asthma without complication J45.30 ; Chronic obstructive pulmonary disease, unspecified COPD type J44.9 and Exudative tonsillitis J03.90 [facility] [address] [address]- 9416 13 Jun, 2017 Encounter for immunization Z23 [facility] [id number] [place] [address] 85839- 2849 Jun, [facility], [place] [address] 93557- 7774 Jun, [facility], [place] [id number] [place] [address] 36197- 9651 Jun, [facility] [address] 67753 -3125 Jun, Tonsillitis J03.90 [facility], [place] [id number] [place] [address] 15436- 2727 Jun, [facility], [place] [address] 78470- 8779 Jun, Acute non-recurrent maxillary sinusitis J01.00 [facility], [place] [address] 87961- 3760 Jun, [facility], [place] [id number] [place] [address] 19816- 6679 May, [facility], [place] [id number] [place] [address] 37952- 7951 May, [facility], [place] [id number] [place] [address] 57307- 7989 May, GERD (gastroesophageal reflux disease) K21.9 [facility], [place] [id number] [place] [address] 08839- 3778 May, Migraine without aura and without status migrainosus, not intractable G43.009 [facility], [place] [id number] [place] [address] 34619- 3487 May, [facility], [place] [id number] [place] [address] 30041- 1810 May, [facility], [place] [id number] [place] [address] 81105- 2205 May, Panlobular emphysema J43.1 and Acute non-recurrent maxillary sinusitis J01.00 [facility], [place] [id number] [place] [address] 77092- 9419 May, Bipolar 1 disorder, depressed, moderate F31.32 ; Panic disorder with agoraphobia F40.01 and Akathisia G25.71 [facility], [place] [id number] [place] [address] 65247- 7240 Apr, [facility], [place] [address] 41861- 6035 Apr, [facility] [address] 87057- 9030 Apr, Acute non-recurrent maxillary sinusitis J01.00 [facility] [address] 01178- 7151 Apr, Panlobular emphysema J43.1 [facility] [address] 03504- 7139 Apr, [facility] [address] 38458 -2208 Apr, Exudative tonsillitis J03.90 and Sore throat J02.9 [facility] [id number] [place] [address] 78066- 1298 Mar, [facility], [place] [address] 76453- 6603 15 Mar, 2017 Acute non-recurrent maxillary sinusitis J01.00 [facility], [place] [id number] [place] [address] 74428- 4401 Mar, [facility] [facility] [address] 81540- 3061 Mar, Panlobular emphysema J43.1 and Diabetes E11.9 [facility], [place] [address] 25747- 5084 Mar, [facility] [address] [address]3168 24 Feb, 2017 Wheezing R06.2 and Acute recurrent pansinusitis J01.41 [facility], [place] [id number] [place] [address] 55666- 3141 Feb, [facility], [place] [id number] [place] [address] 25688- 7073 Feb, Acute non-recurrent maxillary sinusitis J01.00 [facility], [place] [id number] [place] [address] 87593- 6338 Feb, Chronic obstructive pulmonary disease, unspecified J44.9 [facility] [id number] [place] [address] 76865- 5390 Feb, Hypoxemia R09.02 and Chronic obstructive pulmonary disease, unspecified J44.9 [facility] [address] 51592- 6000 28 Jan, 2017 Bipolar 1 disorder, depressed, moderate F31.32 ; Panic disorder with agoraphobia F40.01 ; Chronic post-traumatic stress disorder (PTSD ) F43.12 ; Diabetes E11.9 and Moderate persistent asthma without complication J45.40 [facility] [id number] [place] [address] 12365- 4445 22 Jan, 2017 [facility] [id number] [place] [address] 66443- 2813 19 Jan, 2017 Acute non-recurrent maxillary sinusitis J01.00 [facility] [id number] [place] [address] 11266- 7712 18 Jan, 2017 [facility] [id number] [place] [address] 57287- 7465 18 Jan, 2017 [facility] [id number] [place] [address] 98919- 6119 Jan, Moderate persistent asthma without complication J45.40 and Hypoxemia R09.02 [facility] [facility] [address] 04085- 7539 Jan, Moderate persistent asthma without complication J45.40 and Hypoxemia R09.02 [facility], [place] [id number] [place] [address] 71967- 2226 Jan, [facility], [place] [id number] [place] [address] 38254- 5106 Dec, Acute non-recurrent maxillary sinusitis J01.00 [facility], [place] [id number] [place] [address] 51278- 2952 Dec, Chronic obstructive pulmonary disease, unspecified J44.9 [facility] [id number] [place] [address] 56147- 6516 Dec, [facility] [id number] [place] [address] 95784- 7016 Dec, Mild persistent asthma without complication J45.30 and Other chronic pain G89.29 [facility] [id number] [place] [address] 80454- 4927 Nov, [facility], [place] [id number] [place] [address] 12401- 9287 Nov, Acute non-recurrent maxillary sinusitis J01.00 [facility], [place] [id number] [place] [address] 65783- 5052 Nov, [facility] [id number] [place] [address] 32634- 2026 Nov, [facility] [id number] [place] [address] 27625- 2542 Oct, [facility] [id number] [place] [address] 07248- 0017 Oct, Bipolar 1 disorder, depressed, partial remission F31.75 ; Panic disorder with agoraphobia F40.01 and Chronic post-traumatic stress disorder (PTSD) F43.12 [facility] [id number] [place] [address] 15535- 3744 Oct, Acute non-recurrent maxillary sinusitis J01.00 [facility], [place] [id number] [address]- 6436 Oct, [facility], [place] [id number] [place] [address] 86153- 8082 Oct, Diabetes E11.9 [facility], [place] [id number] [place] [address] 46295- 2174 September, Diabetes E11.9 [facility], [place] [id number] [place] [address] 70040- 3622 September, Diabetes E11.9 and Sinus tachycardia R00.0 [facility], [place] [id number] [place] [address] 10969- 6946 September, [facility] [id number] [place] [address] 78254- 3301 September, [facility], [place] [id number] [place] [address] 03406- 5166 Aug, Diabetes E11.9 and Lumbago with sciatica, right side M54.41 [facility] [id number] [place] [address] 81749- 9951 Aug, [facility], [place] [id number] [place] [address] 52298- 1539 Jul, Bipolar 1 disorder, depressed, moderate F31.32 ; Panic disorder with agoraphobia F40.01 and Chronic post-traumatic stress disorder ( PTSD) F43.12 [facility], [place] [id number] [place] [address] 41424- 6463 Jul, Sore throat J02.9 [facility], [place] [id number] [place] [address] 32185- 1064 Jul, [facility], [place] [id number] [place] [address] 93221- 1826 Jul, [facility], [place] [id number] [place] [address] 04359- 4445 Jul, [facility], [place] [address] [address]- 8644 Jul, [facility], [place] [id number] [place] [address] 934686- 2349 Jul, Sore throat J02.9 and Pharyngitis, unspecified etiology J02.9 [facility], [place] [id number] [place] [address] 66747- 1765 Jun, [facility], [place] [id number] [place] [address] 32306- 6841 23 Jun, 2016 Diabetes E11.9 [facility], [place] [id number] [place] [address] 30942- 2817 20 Jun, 2016 [facility], [place] [id number] [place] [address] 45727- 5672 Jun, [facility], [place] [id number] [place] [address] 05944- 0224 Jun, [facility], [place] [id number] [place] [address] 28257- 7827 Jun, [facility], [place] [id number] [place] [address] 79620- 5033 Jun, [facility], [place] [address] [address]- 4553 15 Jun, 2016 [facility], [place] [address] [address]- 6600 Jun, [facility], [place] [id number] [place] [address] 01334- 6923 Jun, [facility], [place] [id number] [place] [address] 655891- 3537 May, Diabetes E11.9 ; Other chronic pain G89.29 ; Acute recurrent maxillary sinusitis J01.01 ; Bipolar I disorder with depression F31.9 and Anxiety disorder, unspecified F41.9 [facility] [id number] [place] [address] 26512- 2331 May, [facility] [id number] [place] [address] 33903- 1345 May, Diabetes E11.9 ; Bipolar I disorder with depression F31.9 ; Anxiety disorder, unspecified F41.9 ; Other chronic pain G89.29 and Acute recurrent maxillary sinusitis J01.01 [facility] [id number] [place] [address] 74464- 4651 May, [facility] [id number] [place] [address] 69733- 7688 May, Attention deficit hyperactivity disorder (ADHD), predominantly inattentive type F90.0 [facility] [id number] [place] [address] 52075- 2150 May, [facility] [id number] [place] [address] 20471- 1637 Apr, Attention deficit hyperactivity disorder (ADHD), predominantly inattentive type F90.0 and Non-seasonal allergic rhinitis due to other allergic trigger J30.89 [facility] [id number] [place] [address] 03987- 3811 Apr, Bipolar 1 disorder, depressed, moderate F31.32 ; Panic disorder with agoraphobia F40.01 and Chronic post-traumatic stress disorder ( PTSD) F43.12 [facility] [id number] [place] [address] 14628- 6234 Apr, Dental examination Z01.20 [facility] [id number] [place] [address] 50394- 9370 Mar, [facility] [id number] [place] [address] 66414- 5621 Mar, [facility] [id number] [place] [address] 48128- 1711 Mar, Bipolar I disorder with depression F31.9 and Anxiety disorder, unspecified F41.9 [facility], [place] [id number] [place] [address] 57904- 3260 08 Mar, 2016 Panic disorder with agoraphobia F40.01 ; Bipolar 1 disorder , depressed, moderate F31.32 and Chronic post-traumatic stress disorder (PTSD) F43.12 [facility] [facility] [address] 39998- 7069 Mar, [facility] [facility] [address] 23564- 1995 Mar, Dental caries K02.9 [facility] [address] 55551- 0774 24 Feb, 2016 Lumbago with sciatica, left side M54.42 ; Lumbago with sciatica, right side M54.41 and Other chronic pain G89.29 [facility] [facility] [address] 94049- 7048 17 Feb, 2016 [facility] [id number] [place] [address] 99956- 7751 14 Feb, 2016 [facility] [facility] [address] 41153- 9578 Feb, Bipolar I disorder with depression F31.9 ; PTSD (post- traumatic stress disorder) F43.10 and Mood disorder F39 [facility] [facility] [id number] [place] [address] 94525- 2275 Feb, [facility], [place] [id number] [place] [address] 97742- 2835 11 Feb, 2016 Dental examination Z01.20 [place] [facility] [address] 62952- 2790 07 Feb, 2016 [facility] [id number] [place] [address] 76181 -4408 03 Feb, 2016 Acute bronchitis, unspecified organism J20.9 [facility], [place] [address] 23504- 9985 Jan, Mood disorder F39 ; Migraine without aura and without status migrainosus, not intractable G43.009 ; Irritable bowel syndrome, unspecified type K58.9 ; Diabetes E11.9 and Encounter for immunization Z23 [facility], [place] [id number] [place] [address] 16984- 1329 Jan, [facility], [place] [address] 06046- 2292 Jan, [facility], [place] [address] 51764- 9972 Jan, [facility], [place] [address] 64694- 4541 Jan, [facility], [place] [id number] [place] [address] 40115- 1004 Jan, [facility], [place] [address] 12745- 1955 Dec, Bipolar I disorder with depression F31.9 ; PTSD (post- traumatic stress disorder) F43.10 and Panic disorder with agoraphobia F40.01 [facility], [place] [id number] [place] [address] 53382- 3237 Dec, Chronic obstructive pulmonary disease, unspecified COPD type J44.9 ; Tremor R25.1 and Anxiety F41.9 [facility] [id number] [place] [address] 36497- 7310 Dec, [facility] [address] 58852- 9903 Nov, Tremors of nervous system R25.1 and Cramping of feet R25.2 [facility] [id number] [place] [address] 52295- 5548 Nov, [facility], [place] [id number] [place] [address] 78352- 9764 Nov, [facility] [address] [place] [address]- 5737 Oct, Chronic obstructive pulmonary disease, unspecified J44.9 [facility], [place] [id number] [place] [address] 39915- 2270 Oct, [facility], [place] [id number] [place] [address] 60095- 1571 Oct, Tremor R25.1 [facility], [place] [id number] [place] [address] 16635- 1578 Oct, Bipolar I disorder with depression F31.9 ; Diabetes E11.9 ; PTSD (post-traumatic stress disorder) F43.10 and Panic disorder with agoraphobia F40.01 [facility] [id number] [place] [address] 45196- 0774 Oct, Mood disorder F39 [facility] [id number] [place] [address] 75643- 3419 September, [facility] [id number] [place] [address] 44875- 3405 September, Diabetes E11.9 ; Bipolar I disorder with depression F31.9 ; PTSD (post-traumatic stress disorder) F43.10 and Panic disorder with agoraphobia F40.01 [place] [id number] [place] [address] [phone]- 3009 September, Mood disorder F39 ; Schizoaffective disorder, unspecified type F25.9 ; Arthritis M19.90 ; Tremor R25.1 ; Acute non-recurrent frontal sinusitis J01.10 and Blood in stool K92.1 [place] [address] [address] September, [place] [id number] [place] [address] 34516- 7318 September, Chronic obstructive pulmonary disease, unspecified J44.9 [place] [id number] [place] [address] [phone]- 6709 September, Diabetes E11.9 [facility], [place] [id number] [address] Aug, Other bipolar disorder F31.89 and Anxiety disorder, unspecified F41.9 [facility], [place] [id number] [place] [id number] 2546 Aug, [facility], [place] [id number] [place] [address] [id number] 2546 Aug, Diabetes E11.9 [facility], [place] [id number] [place] [address] [id number] 2546 18 Aug, 2015 [facility], [place] [id number] [place] [address] 28874- 7806 14 Aug, 2015 Diabetes E11.9 ; Fatigue R53.83 and Dizziness R42 [facility], [place] [address] [id number] [place] [address] 83015- 5346 Aug, Other bipolar disorder F31.89 [facility], [place] [id number] [place] [address] 43291 2546 Aug, Generalized anxiety disorder F41.1 [facility], [place] [id number] [place] [address] 55791 2546 07 Aug, 2015 Other bipolar disorder F31.89 and Anxiety disorder, unspecified F41.9 [facility], [place] [address] [address] 2546 Aug, [facility], [place] [id number] [place] [address] 39260 2540 Jul, [facility], [place] [id number] [place] [address] 22699 2546 Jul, [facility], [place] [id number] [place] [address] 58869 2546 Jul, Bronchitis J40 [facility], [place] [id number] [place] [address] 57861- 1897 Jul, Anxiety disorder F41.9 [facility], [place] [id number] [place] [address] 42193- 2354 Jul, Other bipolar disorder F31.89 and Anxiety disorder, unspecified F41.9 [facility], [place] [id number] [place] [address] 35746- 8066 Jul, Other bipolar disorder F31.89 and Fibromyalgia M79.7 [facility], [place] [address] 06884- 1370 Jul, [facility], [place] [id number] [place] [address] 30661- 2861 Jul, [place] [address] 27409- 9127 Jul, [place] [id number] [place] [address] 27685- 1537 Jul, Other bipolar disorder F31.89 and Anxiety disorder, unspecified F41.9 [place] [id number] [place] [address] 56248- 4602 Jun, GERD (gastroesophageal reflux disease) K21.9 [place] [id number] [place] [address] 50229- 9135 Jun, [facility], [place] [id number] [place] [address] 50573- 4009 May, [place] [id number] [place] [address] 03024- 2275 May, Diabetes E11.9 ; Back pain M54.9 ; GERD (gastroesophageal reflux disease) K21.9 ; Hypertension I10 and Peripheral neuropathy G62.9 [place] [id number] [place] [address] 01482- 0627 Mar, [facility], [place] [id number] [place] [address] 35289- 5862 Mar, [place] [id number] [place] [address] 87402- 9239 Mar, Acute sinusitis J01.90 and Otitis media, left H66.92 [facility], [place] [id number] [place] [address] 26279- 4400 Feb, [facility], [place] [id number] [place] [address] 61685- 6754 Feb, [facility], [place] [id number] [place] [address] 03349- 8944 Feb, [facility], [place] [id number] [place] [address] 43588- 3519 Feb, [facility], [place] [id number] [place] [address] 70922- 8094 Jan, [facility], [place] [id number] [place] [address] 11452- 1278 Jan, Diabetes 250.00 and Back pain 724.5 [facility], [place] [id number] [place] [address] 72170- 7490 Jan, [facility], [place] [id number] [place] [address] 84130- 4196 Dec, Diabetes 250.00 ; Benign essential hypertension 401.1 and Allergic rhinitis 477.9 [facility], [place] [id number] [place] [address] 42635- 0349 Dec, [facility], [place] [id number] [place] [address] 71132- 6526 Dec, [facility], [place] [id number] [place] [address] 07089- 2318 Dec, Psychosis 298.9 [facility], [place] [id number] [place] [address] 00898- 5828 Dec, Medication side effect 995.20 and Generalized anxiety disorder 300.02 [facility], [place] [id number] [place] [address] 83596- 6221 Dec, Acquired cognitive dysfunction 294.9 [facility], [place] [address] [place] [address]- 8847 Dec, [facility], [place] [id number] [place] [address] 64539- 3846 Dec, Unspecified myalgia and myositis 729.1 and Generalized anxiety disorder 300.02 [facility], [place] [id number] [place] [address] 41119- 0541 Nov, [facility], [place] [id number] [place] [address] 44900- 7935 Nov, [facility], [place] [id number] [place] [address] 48583- 2110 Nov, [facility], [place] [id number] [place] [address] 16080- 3654 Nov, Upper respiratory infection 465.9 and Chronic airway obstruction, not elsewhere classified 496 [facility], [place] [id number] [place] [address] 58408- 4403 Nov, Hyponatremia 276.1 [facility], [place] [id number] [place] [address] 95408- 1124 Oct, [facility], [place] [id number] [place] [address] 64952- 5869 Oct, [facility], [place] [address] [address]- 6016 Oct, [facility], [place] [id number] [place] [address] 90908- 2418 Oct, [facility], [place] [id number] [place] [address] 29531- 1324 Oct, Hyponatremia 276.1 [facility], [place] [id number] [place] [address] 57655- 7529 Oct, [facility], [place] [id number] [address]- 6921 Oct, [facility], [place] [id number] [place] [address] 34948- 2546 Oct, Generalized anxiety disorder 300.02 [facility], [place] [address] [address]- 3876 Oct, Generalized anxiety disorder 300.02 and Diabetes 250.00 [facility] [address] [facility] [id number] [place] [address]- 6746 14 Aug, 2014 [facility], [place] [id number] [place] [address] 58645- 8543 Aug, [facility], [place] [id number] [address]- 9192 Jul, [facility], [place] [id number] [place] [address], [place] 8228 Jul, [facility], [place] [address] [address]- 0974 Jun, [facility], [place] [id number] [place] [address] 77446- 1995 Jun, [facility], [place] [id number] [place] [address]- 9140 Jun, [facility], [place] [id number] 6885 Jun, [facility], [place] [address] 4827 Jun, [facility], [place] [address] [address]- 2913 May, [facility], [place] [id number], [place] [address]- 7915 May, [facility], [place] [address] [address]- 2906 Apr, [facility], [place] [address], [place] [address]- 7296 Apr, [facility], [place] [address], [place] [address]- 4440 Apr, [facility] [place] [facility] [address] [id number] [place] [address]- 6722 Apr, [facility] [place] [facility] [address] [id number] [place] [address]- 0627 Apr, [facility] [place] [facility] [address] [id number] [place] [address]- 3000 Apr, [facility] [place] [facility] [address] [id number] [place] [address]- 0820 Apr, [facility] [place] [facility] [address] [id number] [place] [address]- 3687 Apr, [facility] [place] [facility] [address] [id number] [place] [address]- 6850 Feb, [facility] [place] [facility] [address] [id number] [place] [address]- 7375 Feb, [facility] [place] [facility] [address] [id number] [place] [address]- 3313 Jan, [facility] [place] [facility] [address] [id number] [place] [address]- 5402 Jan, [facility] [place] [facility] [address] [id number] [place] [address]- 4588 Dec, [facility] [place] [facility] [address] [id number] [place] [address]- 5860 Dec, [facility] [place] [facility] [address] [id number] [place] [address]- 8463 Dec, [facility] [place] [facility] [address] [id number] [place] [address]- 7878 Nov, [facility] [place] [facility] [address] [id number] [place] [address]- 2424 Nov, [facility] [place] [facility] [address] [id number] [place] [address]- 1672 Nov, [facility] [place] [facility] [address] [id number] [place] [address]- 8670 Oct, [facility] [place] [facility] [address] [id number] [place] [address]- 7571 Oct, [facility] [place] [facility] [address] [id number] [place] [address]- 9952 Oct, [facility] [place] [facility] [address] [id number] [place] [address]- 2403 September, [facility] [place] [facility] [address] [id number] [place] [address]- 3337 September, [facility] [place] [facility] [address] [id number] [place] [address]- 9010 September, [facility] [place] [facility] [address] [id number] [place] [address]- 8147 Aug, [facility] [place] [facility] [address] [id number] [place] [address]- 0916 Aug, [facility] [place] [facility] [address] [id number] [place] [address]- 2724 Aug, [facility] [place] [facility] [address] [id number] [place] [address]- 5108 16 Aug, 2011 [facility] [place] [facility] [address] [id number] [place] [address]- 6914 Jul, [facility] [place] [facility] [address] [id number] [place] [address]- 8586 Jun, [facility] [place] [facility] [address] [id number] [place] [address]- 7650 14 Jun, 2011 [facility] [place] [facility] [address] [id number] [place] [address]- 4829 13 Jun, 2011 [facility] [place] [facility] [address] [id number] [place] [address]- 6256 07 Jun, 2011 [facility] [place] [facility] [address] [id number] [place] [address]- 7729 Jun, [facility] [place] [facility] [address] [id number] [place] [address]- 2446 May, [facility] [place] [facility] [address] [id number] [place] [address]- 5846 May, [facility] [place] [facility] [address] [id number] [place] [address]- 1056 May, [facility] [place] [facility] [address] [id number] [place] [address]- 2263 May, [facility] [place] [facility] [address] [id number] [place] [address]- 5821 Apr, [facility] [place] [facility] [address] [id number] [place] [address]- 8399 Apr, [facility] [place] [facility] [address] [id number] [place] [address]- 3374 Apr, [facility] [place] [facility] [address] [id number] [address]- 5059 Mar, [facility] [place] [facility] [address] [id number], [place] [address]- 6192 Mar, [facility] [place] [facility] [address] [id number] [address]- 1058 Mar, [facility] [place] [facility] [address] [id number], [place] [address]- 5133 Feb, [facility] [place] [facility] [address] [id number], [place] [address]- 2883 Feb, [facility] [place] [facility] [address] [id number], [place] [address]- 4182 Feb, [facility] [place] [facility] [address] [id number], [place] [address]- 8900 Nov, [facility] [place] [facility] [address] [id number], [place] [address]- 2182 September, [facility] [place] [facility] [address] [id number] [address]- 1672 12 Aug, 2010 [facility], [place] [address] [id number] [address]- 9958 14 Jul, 2010 [facility], [place] [address] [address]- 0244 May, [facility], [place] [address] [address]- 1131 Apr, [facility], [place] [address], [place] [address]- 8575 Apr, [facility], [place] [address], [place] [address]- 0054 Apr, [facility], [place] [address], [place] [address]- 1908 Apr, [facility], [place] [address] [id number], [place] [address]- 5412 Apr, IMMUNIZATIONS No Known Immunizations SOCIAL HISTORY Never Assessed REASON FOR VISIT PLAN OF CARE VITAL SIGNS MEDICATIONS Unknown [...]
--- OUTSIDE RECORDS SUMMARY | 2017-11-18 07:03 | XMS REPORT ---
Author Author WHIT GANDHI [facility] Address [address] [place] [address] Care Team Providers Care Aquatics Manager Name Role Phone WHIT GANDHI Unavailable PROBLEMS Type Condition ICD9-CM Code EQM11-OZ Code Onset Dates Condition Status SNOMED Code Problem Back pain M54.9 Active 877118629 Problem GERD (gastroesophageal reflux disease) K21.9 Active 848143992 Problem Diabetes E11.9 Active 12383835 Problem Hypertension I10 Active 64102408 Problem Anxiety disorder, unspecified F41.9 Active 387610683 Problem Other bipolar disorder F31.89 Active 66885385 Problem Mild persistent asthma without complication J45.30 Active 154722754 Problem Fibromyalgia M79.7 Active 42780053 Problem Moderate persistent asthma without complication J45.40 Active 902718278 Problem Panic disorder with agoraphobia F40.01 Active 81675044 Problem Panlobular emphysema J43.1 Active 4537065 Problem Migraine without aura and without status migrainosus, not intractable G43.009 Active 127251425 Problem Akathisia G25.71 Active 136845717 Problem Schizoaffective disorder, bipolar type F25.0 Active 56003600 Problem Irritable bowel syndrome with both constipation and diarrhea K58.2 Active 66154398 Problem Lumbago with sciatica, left side M54.42 Active 158668228 Problem Other chronic pain G89.29 Active 90366055 Problem Chronic obstructive pulmonary disease, unspecified J44.9 Active 09101284 Problem Fibrocystic disease of left breast N60.12 Active 57568565 Problem Fibrocystic disease of right breast N60.11 Active 19169684 Problem Irritable bowel syndrome with constipation K58.1 Active 511397650 Problem Arthritis M19.90 Active 8295610 Problem Chronic post-traumatic stress disorder (PTSD) F43.12 Active 389390070 Problem Bipolar affective disorder, remission status unspecified F31.9 Active 05781419 Problem Lumbago with sciatica, right side M54.41 Active 897538204 Problem Bipolar 1 disorder, depressed, moderate F31.32 Active 01076008 Problem Acute non-recurrent maxillary sinusitis J01.00 Active 93768691 Problem Bipolar 1 disorder, depressed, partial remission F31.75 Active 48604398 Problem Attention deficit hyperactivity disorder (ADHD), predominantly inattentive type F90.0 Active 77885821 Problem Bipolar I disorder with depression F31.9 Active 99842254 ALLERGIES No Information ENCOUNTERS Encounter Location Date Diagnosis [place] [address] 9[address]- 9641 Nov, [place] [address] 27409- 5076 September, [place] [address] 48616- 2755 Aug, Bipolar affective disorder, remission status unspecified F31.9 and Diabetes E11.9 [place] [address] 85601- 5147 Aug, Diabetes E11.9 ; Schizoaffective disorder, bipolar type F25.0 ; Pharyngitis due to other organism J02.8 ; Panlobular emphysema J43.1 and Irritable bowel syndrome with both constipation and diarrhea K58.2 [place] [address] [place] [id number] [place] [address] 26936- 9727 Aug, Abnormal mammogram R92.8 [place] [address] 22303- 8822 Aug, [place] [address] [place] [id number] [place] [address] 39264- 3247 Aug, Bipolar 1 disorder, depressed, moderate F31.32 ; Panic disorder with agoraphobia F40.01 and Chronic post-traumatic stress disorder ( PTSD) F43.12 [place] [address] [place] [id number] [place] [address] 12566- 1709 Aug, [place] [address] 11477- 9086 Aug, [facility] [id number] [place] [address] 54420- 1135 Aug, [facility] [address] [place] [id number] [place] [address] 25041- 9143 Jul, [facility] [address] [place] [id number] [place] [address] 71207- 4252 Jul, Mild persistent asthma without complication J45.30 [facility] [address] [place] [id number] [place] [address] 95856- 8598 19 Jul, 2017 Mild persistent asthma without complication J45.30 [place] [address] [place] [id number] [place] [address] 252490- 2438 15 Jul, 2017 Bipolar affective disorder, remission status unspecified F31.9 ; Diabetes E11.9 and Irritable bowel syndrome with constipation K58.1 [place] [address] [place] [id number] [place] [address] 72642- 2619 Jul, [facility] [address] [place] [id number] [place] [address] 59168- 5031 Jul, [place] [address] [place] [id number] [place] [address] 74876- 0324 Jul, Frequent headaches R51 [place] [address] [place] [id number] [place] [address] 59328- 5874 Jul, [facility] [address] [place] [id number] [place] [address] 98473- 8806 Jul, [facility] [id number] [place] [address] 36772- 9514 Jul, [facility] [address] [place] [id number] [place] [address] 009866- 5536 Jul, Frequent headaches R51 ; Fibrocystic disease of left breast N60.12 ; Fibrocystic disease of right breast N60.11 and Diabetes E11.9 [facility] [address] [place] [id number] [place] [address] 77766- 6767 Jul, [facility] [id number] [place] [address] 51051- 0629 Jul, [facility] [address] [place] [id number] [place] [address] 08541- 8497 Jun, Exudative tonsillitis J03.90 [facility] [address] [place] [id number] [place] [address] 62486- 5905 Jun, [facility] [address] [place] [id number] [place] [address] 53872- 8268 Jun, [facility] [address] [place] [id number] [place] [address] 88461- 1765 15 Jun, 2017 Mild persistent asthma without complication J45.30 ; Chronic obstructive pulmonary disease, unspecified COPD type J44.9 and Exudative tonsillitis J03.90 [facility] [address] [place] [id number] [place] [address] 30563- 4407 13 Jun, 2017 Encounter for immunization Z23 [facility] [address] [place] [id number] [place] [address] 13000- 6625 Jun, [facility] [address] [place] [id number] [place] [address] 96097- 3872 Jun, [facility] [id number] [place] [address] 51240- 8909 Jun, [facility] [id number] [place] [address] 22903 -8570 Jun, Tonsillitis J03.90 [facility] [address] [place] [id number] [place] [address] 22901- 6053 Jun, [facility] [address] [place] [id number] [place] [address] 23739- 1011 Jun, Acute non-recurrent maxillary sinusitis J01.00 [facility] [address] [place] [id number] [place] [address] 71566- 0469 Jun, [place] [address] [place] [id number] [place] [address] 54107- 4277 May, [place] [address] 73646- 9901 May, [place] [address] 34356- 5916 May, GERD (gastroesophageal reflux disease) K21.9 [place] [address] 08613- 8652 May, Migraine without aura and without status migrainosus, not intractable G43.009 [place] [address] 15483- 2124 May, [place] [address] 65334- 1059 May, [place] [address] 66492- 1235 May, Panlobular emphysema J43.1 and Acute non-recurrent maxillary sinusitis J01.00 [place] [address] [place] [id number] [place] [address] 86904- 4094 May, Bipolar 1 disorder, depressed, moderate F31.32 ; Panic disorder with agoraphobia F40.01 and Akathisia G25.71 [place] [address] [place] [id number] [place] [address] 45088- 3151 Apr, [place] [address] [place] [id number] [place] [address] 55883- 4914 Apr, [place] [address] [place] [id number] [place] [address] 61909- 7514 Apr, Acute non-recurrent maxillary sinusitis J01.00 [place] [address] [place] [id number] [place] [address] 74924- 9501 07 Apr, 2017 Panlobular emphysema J43.1 [place] [address] [place] [address]- 8930 04 Apr, 2017 [facility] [address] [place] [id number] [place] [address] 30232 -9328 Apr, Sore throat J02.9 and Exudative tonsillitis J03.90 [facility] [address] [place] [id number] [place] [address] 51210- 5587 17 Mar, 2017 [facility] [address] 93893- 0351 15 Mar, 2017 Acute non-recurrent maxillary sinusitis J01.00 [place] [address] 68805- 9114 Mar, [place] [address] 47371- 9544 Mar, Panlobular emphysema J43.1 and Diabetes E11.9 [place] [address] 10987- 1810 Mar, [facility] [address] [place] [id number] [place] [address] 02225 -5672 Feb, Wheezing R06.2 and Acute recurrent pansinusitis J01.41 [place] [address] [place] [id number] [place] [address] 13346- 9953 Feb, [place] [address] 77074- 9539 Feb, Acute non-recurrent maxillary sinusitis J01.00 [facility] [address] [place] [id number] [place] [address] 90367- 4223 Feb, Chronic obstructive pulmonary disease, unspecified J44.9 [place] [address] 31221- 5685 Feb, Hypoxemia R09.02 and Chronic obstructive pulmonary disease, unspecified J44.9 [place] [address] 54945- 7700 Jan, Bipolar 1 disorder, depressed, moderate F31.32 ; Panic disorder with agoraphobia F40.01 ; Chronic post-traumatic stress disorder (PTSD ) F43.12 ; Diabetes E11.9 and Moderate persistent asthma without complication J45.40 [facility] [address] [place] [id number] [place] [address] 95537 2546 22 Jan, 2017 [facility] [address] 20494 2546 19 Jan, 2017 Acute non-recurrent maxillary sinusitis J01.00 [facility] [address] [place] [id number] [place] [address] 45995- 5746 18 Jan, 2017 [facility] [address] 44759 2546 Jan, [facility] [address] 23153 2546 Jan, Moderate persistent asthma without complication J45.40 and Hypoxemia R09.02 [facility] [address] [place] [id number] [place] [address] 98348 2546 Jan, Moderate persistent asthma without complication J45.40 and Hypoxemia R09.02 [facility] [address] [place] [id number] [place] [address] 49994 2546 Jan, [place] [address] [place] [id number] [place] [address] 46292 2541 Dec, Acute non-recurrent maxillary sinusitis J01.00 [facility] [address] [place] [id number] [place] [address] 29934 2546 Dec, Chronic obstructive pulmonary disease, unspecified J44.9 [facility] [address] 53394 2546 Dec, [facility] [address] [place] [id number] [place] [address] 05169 2546 Dec, Mild persistent asthma without complication J45.30 and Other chronic pain G89.29 [facility] [address] [place] [address]- 8674 Nov, [facility] [address] [place] [id number] [place] [address] 90536- 8863 Nov, Acute non-recurrent maxillary sinusitis J01.00 [facility] [address] [place] [id number] [place] [address] 17443- 9138 Nov, [facility] [address] [place] [id number] [place] [address] 92454- 0228 Nov, [facility] [address] [place] [id number] [place] [address] 22272- 2930 Oct, [facility] [address] [place] [id number] [place] [address] 34877- 1437 Oct, Bipolar 1 disorder, depressed, partial remission F31.75 ; Panic disorder with agoraphobia F40.01 and Chronic post-traumatic stress disorder (PTSD) F43.12 [facility] [address] [place] [id number] [place] [address] 50903- 7200 Oct, Acute non-recurrent maxillary sinusitis J01.00 [facility] [address] [place] [id number] [place] [address] 06382- 6741 Oct, [facility] [address] [place] [id number] [place] [address] 05888- 2127 Oct, Diabetes E11.9 [facility] [address] [place] [id number] [place] [address] 90830- 8372 September, Diabetes E11.9 [facility] [address] [place] [id number] [place] [address] 30796- 7308 September, Diabetes E11.9 and Sinus tachycardia R00.0 [facility] [address] [place] [id number] [place] [address] 24278- 1604 September, [facility] [address] [place] [id number] [place] [address] 35365- 0728 September, [facility] [address] [place] [id number] [place] [address] 70547- 1876 Aug, Diabetes E11.9 and Lumbago with sciatica, right side M54.41 [facility] [id number] [place] [address] 71759- 1566 Aug, [facility] [address] [place] [id number] [place] [address] 20739- 8328 Jul, Bipolar 1 disorder, depressed, moderate F31.32 ; Panic disorder with agoraphobia F40.01 and Chronic post-traumatic stress disorder ( PTSD) F43.12 [facility] [id number] [place] [address] 52233- 0008 Jul, Sore throat J02.9 [facility] [id number] [place] [address] 10070- 1352 Jul, [facility] [address] [place] [id number] [place] [address] 98798- 4760 Jul, [facility] [address] [place] [id number] [place] [address] 93183- 0199 Jul, [facility] [id number] [place] [address] 12335- 3764 Jul, [facility] [address] [place] [id number] [place] [address] 67006- 9927 Jul, Sore throat J02.9 and Pharyngitis, unspecified etiology J02.9 [facility] [id number] [address]- 4105 Jun, [facility] [id number] [address]- 7009 Jun, Diabetes E11.9 [facility] [id number] [place] [address] 07391- 1166 Jun, [facility] [id number] [place] [address] 27589- 4029 Jun, [facility] [address] [id number] [address]- 0776 16 Jun, 2016 [facility] [address] [address]- 4964 Jun, [facility] [id number] [address]- 0254 Jun, [facility] [id number] [place] [address] 85232- 9733 Jun, [facility] [address] [place] [id number] [place] [address] 50170- 6051 Jun, [facility] [address] [place] [id number] [place] [address] 57204- 2556 Jun, [facility] [id number] [place] [address] 80176- 9802 May, Diabetes E11.9 ; Bipolar I disorder with depression F31.9 ; Other chronic pain G89.29 ; Acute recurrent maxillary sinusitis J01.01 and Anxiety disorder, unspecified F41.9 [facility] [address] [address]- 5434 May, [facility] [id number] [place] [address] 28780- 1460 May, Diabetes E11.9 ; Bipolar I disorder with depression F31.9 ; Anxiety disorder, unspecified F41.9 ; Other chronic pain G89.29 and Acute recurrent maxillary sinusitis J01.01 [facility] [address] [address]- 0169 May, [facility] [id number] [place] [address] 03220- 9343 May, Attention deficit hyperactivity disorder (ADHD), predominantly inattentive type F90.0 [facility] [address] [address]- 7021 May, [facility] [id number] [place] [address] 21828- 9552 Apr, Attention deficit hyperactivity disorder (ADHD), predominantly inattentive type F90.0 and Non-seasonal allergic rhinitis due to other allergic trigger J30.89 [place] [address] [place] [id number] [place] [address] 58666- 5861 Apr, Bipolar 1 disorder, depressed, moderate F31.32 ; Panic disorder with agoraphobia F40.01 and Chronic post-traumatic stress disorder ( PTSD) F43.12 [place] [address] [place] [id number] [place] [address] 01432- 2811 Apr, Dental examination Z01.20 [place] [address] 47969- 1192 Mar, [place] [address] [place] [id number] [place] [address] 53787- 9006 Mar, [place] [address] 44501- 5118 Mar, Bipolar I disorder with depression F31.9 and Anxiety disorder, unspecified F41.9 [place] [address] [place] [id number] [place] [address] 84718- 2768 Mar, Panic disorder with agoraphobia F40.01 ; Bipolar 1 disorder , depressed, moderate F31.32 and Chronic post-traumatic stress disorder (PTSD) F43.12 [place] [address] [place] [id number] [place] [address] 15991- 9361 Mar, [place] [address] [place] [id number] [place] [address] 74327- 5081 Mar, Dental caries K02.9 [place] [address] [place] [id number] [place] [address] 16716- 4568 Feb, Lumbago with sciatica, left side M54.42 ; Lumbago with sciatica, right side M54.41 and Other chronic pain G89.29 [place] [address] [place] [id number] [place] [address] 09164- 2146 Feb, [facility] [address] [place] [id number] [place] [address] 88658- 4582 14 Feb, 2016 [facility] [address] [place] [id number] [place] [address] 12739- 9643 Feb, Bipolar I disorder with depression F31.9 ; PTSD (post- traumatic stress disorder) F43.10 and Mood disorder F39 [facility] [address] [place] [id number] [place] [address] 75180- 7715 Feb, [facility] [address] [place] [id number] [place] [address] 62160- 5454 11 Feb, 2016 Dental examination Z01.20 [place] [address] [place] [id number] [place] [address] 05258- 1333 07 Feb, 2016 [facility] [address] [place] [id number] [place] [address] 24990 -0509 03 Feb, 2016 Acute bronchitis, unspecified organism J20.9 [facility] [address] [place] [id number] [place] [address] 75136- 7150 26 Jan, 2016 Mood disorder F39 ; Migraine without aura and without status migrainosus, not intractable G43.009 ; Irritable bowel syndrome, unspecified type K58.9 ; Diabetes E11.9 and Encounter for immunization Z23 [facility] [address] [place] [id number] [place] [address] 64669- 3924 15 Jan, 2016 [facility] [address] [id number] [place] [address] 66255- 7471 Jan, [facility] [address] [place] [id number] [place] [address] 28957- 9343 Jan, [facility] [address] [place] [id number] [place] [address] 22500- 6316 Jan, [facility] [address] [id number] [place] [address] 11244- 7784 Jan, [facility] [id number] [place] [address] 09038- 5583 Dec, Bipolar I disorder with depression F31.9 ; PTSD (post- traumatic stress disorder) F43.10 and Panic disorder with agoraphobia F40.01 [facility] [id number] [place] [address] 03055- 9173 Dec, Chronic obstructive pulmonary disease, unspecified COPD type J44.9 ; Tremor R25.1 and Anxiety F41.9 [facility] [address] 75312- 4596 Dec, [facility] [address] 91970- 1383 Nov, Tremors of nervous system R25.1 and Cramping of feet R25.2 [facility] [id number] [place] [address] 99213- 1916 Nov, [place] [address] 18526- 0362 Nov, [facility] [id number] [place] [address] 79145- 7100 Oct, Chronic obstructive pulmonary disease, unspecified J44.9 [facility] [id number] [place] [address] 18361- 6406 Oct, [facility] [id number] [place] [address] 69063- 9408 Oct, Tremor R25.1 [facility] [id number] [place] [address] 35112- 7820 Oct, Bipolar I disorder with depression F31.9 ; Diabetes E11.9 ; PTSD (post-traumatic stress disorder) F43.10 and Panic disorder with agoraphobia F40.01 [facility] [id number] [place] [address] 57513- 4574 Oct, Mood disorder F39 [facility] [id number] [place] [address] 49581- 3651 September, [facility] [id number] [place] [address] 01481- 6265 September, Diabetes E11.9 ; Bipolar I disorder with depression F31.9 ; PTSD (post-traumatic stress disorder) F43.10 and Panic disorder with agoraphobia F40.01 [facility] [facility] [id number] [place] [address] 28788- 2805 September, Mood disorder F39 ; Schizoaffective disorder, unspecified type F25.9 ; Arthritis M19.90 ; Tremor R25.1 ; Acute non-recurrent frontal sinusitis J01.10 and Blood in stool K92.1 [facility] [id number] [place] [address] 90588- 7798 September, [place] [id number] [place] [address] 59248- 5676 September, Chronic obstructive pulmonary disease, unspecified J44.9 [place] [id number] [place] [address] 00754- 8229 September, Diabetes E11.9 [facility] [id number] [place] [address] 08987- 8383 Aug, Other bipolar disorder F31.89 and Anxiety disorder, unspecified F41.9 [place] [id number] [place] [address] 93474- 7865 Aug, [place] [id number] [place] [address] 10010- [phone] Aug, Diabetes E11.9 [place] [id number] [place] [address] 81940- 3521 Aug, [place] [address] 6[address]- 2457 14 Aug, 2015 Diabetes E11.9 ; Fatigue R53.83 and Dizziness R42 [facility] [id number] [place] [address] 21821- 9105 Aug, Other bipolar disorder F31.89 [place] [id number] [address] 07 Aug, 2015 Generalized anxiety disorder F41.1 [facility] [id number] [place] [address] 21294- 7726 Aug, Other bipolar disorder F31.89 and Anxiety disorder, unspecified F41.9 [facility] [id number] [address] Aug, [facility] [id number] [place] [address] 07042- 7891 Jul, [facility] [id number] [place] [address] 68233- 1490 Jul, [facility] [id number] [place] [address] 33785- 6062 Jul, Bronchitis J40 [facility] [id number] [place] [address] 38905- 3274 Jul, Anxiety disorder F41.9 [facility] [id number] [place] [address] 47812- 0103 Jul, Other bipolar disorder F31.89 and Anxiety disorder, unspecified F41.9 [facility] [address] [address] 89[address] Jul, Other bipolar disorder F31.89 and Fibromyalgia M79.7 [facility] [address] [address] 77[address] Jul, [facility] [address] [address] 2544 Jul, [facility] [id number] [place] [address] 94861- 9596 Jul, [facility] [address] [address] Jul, Other bipolar disorder F31.89 and Anxiety disorder, unspecified F41.9 [facility] [id number] [place] [address] 57957- 4942 Jun, GERD (gastroesophageal reflux disease) K21.9 [facility] [address] 27164- 3665 Jun, [facility] [id number] [place] [address] 70752- 1191 May, [facility] [address] [address]- 3436 May, Diabetes E11.9 ; Back pain M54.9 ; GERD (gastroesophageal reflux disease) K21.9 ; Hypertension I10 and Peripheral neuropathy G62.9 [facility] [id number] [place] [address] 22789- 1387 Mar, [facility] [id number] [place] [address] 60742- 0451 Mar, [facility] [id number] [place] [address] 68142- 3115 Mar, Acute sinusitis J01.90 and Otitis media, left H66.92 [facility] [id number] [place] [address] 00444- 2878 Feb, [facility] [id number] [place] [address] 87847- 5999 Feb, [facility] [id number] [place] [address] 67755- 9601 15 Feb, 2015 [facility] [id number] [place] [address] 33838- 6073 Feb, [facility] [id number] [place] [address] 20371- 7288 29 Jan, 2015 [facility] [id number] [place] [address] 43999- 1939 24 Jan, 2015 Diabetes 250.00 and Back pain 724.5 [facility] [address] 69643- 3369 Jan, [facility] [id number] [place] [address] 95537- 5647 Dec, Diabetes 250.00 ; Benign essential hypertension 401.1 and Allergic rhinitis 477.9 [facility] [id number] [place] [address] 60446- 1147 Dec, [facility] [id number] [place] [address] 05009- 1690 Dec, [facility] [id number] [place] [address] 67091- 3777 Dec, Psychosis 298.9 [facility] [address] 32246- 6626 Dec, Medication side effect 995.20 and Generalized anxiety disorder 300.02 [facility] [id number] [place] [address] 66376- 9973 Dec, Acquired cognitive dysfunction 294.9 [facility] [id number] [place] [address] 03297- 7989 Dec, [facility] [id number] [place] [address] 96111- 2507 Dec, Unspecified myalgia and myositis 729.1 and Generalized anxiety disorder 300.02 [facility] [id number] [place] [address] 30406- 8539 Nov, [facility] [id number] [place] [address] 09889- 3026 Nov, [facility] [id number] [place] [address] 97628- 2070 Nov, [facility] [id number] [place] [address] 75718- 9686 Nov, Upper respiratory infection 465.9 and Chronic airway obstruction, not elsewhere classified 496 [facility] [id number] [place] [address] 60018- 5971 Nov, Hyponatremia 276.1 [facility] [address] [address]- 8516 Oct, [facility] [id number] [place] [address] 62757- 7773 Oct, [facility] [id number] [place] [address] 65512- 9439 Oct, [facility] [id number] [place] [address] 61405- 2090 Oct, [facility] [id number] [place] [address] 72903- 9718 Oct, Hyponatremia 276.1 [facility] [id number] [place] [address] 11605- 7073 Oct, [facility] [id number] [place] [address] 85342- 5832 Oct, [facility] [id number] [place] [address] 60738- 1446 Oct, Generalized anxiety disorder 300.02 [facility] [id number] [place] [address] 495007- 5749 Oct, Generalized anxiety disorder 300.02 and Diabetes 250.00 [facility] [address] [address]- 0675 Aug, [facility] [address] [address]- 6615 Aug, [facility] [address] 5029 Jul, [facility] [id number] [place] [address] 39306- 0739 Jul, [facility] [address] 6440 Jun, [facility] [id number] [place] [address] 87602- 7252 Jun, [facility] [address] [id number] [place] [address]- 0772 Jun, [facility] [place] [facility] [address] [id number] [place] [address]- 1456 Jun, [facility] [address] [facility] [id number] [place] [address]- 6193 Jun, [facility] [place] [facility] [address] [facility] [id number] [place] [address]- 4517 May, [facility] [address] [id number] [place] [address]- 8937 May, [facility] [address] [facility] [id number] [place] [address]- 9892 Apr, [facility] [address] [facility] [id number] [place] [address]- 9113 Apr, [facility] [place] [facility] [address] [facility] [id number] [place] [address]- 2896 Apr, [facility] [address] [facility] [id number] [place] [address]- 0080 Apr, [facility] [place] [facility] [address] [facility] [id number] [place] [address]- 2280 Apr, [facility] [place] [facility] [address] [facility] [id number] [address]- 0121 Apr, [facility] [place] [facility] [address] [facility] [id number] [address]- 3596 Apr, [facility] [place] [facility] [address] [facility] [id number] [place] [address]- 1978 Apr, [facility] [place] [facility] [address] [facility] [id number] [place] [address]- 5951 Feb, [facility] [place] [facility] [address] [facility] [id number] [place] [address]- 1331 Feb, [facility] [place] [facility] [address] [id number] [place] [address]- 2546 Jan, [facility] [address] [id number] [place] [address] 2546 Jan, [facility] [place] [facility] [address] [id number] [place] [address]- 2546 Dec, [facility] [address] [id number] [place] [address]- 2546 Dec, [facility] [place] [facility] [address] [id number] [place] [address]- 2546 Dec, [facility] [address] [id number] [place] [address]- 8646 Nov, [facility] [place] [facility] [address] [id number] [place] [address]- 2546 Nov, [facility] [place] [facility] [address] [id number] [place] [address]- 7483 Nov, [facility] [address] [id number] [place] [address]- 5368 Oct, [facility] [place] [facility] [address] [id number] [place] [address]- 9446 Oct, [facility] [address] [id number] [place] [address] 2546 Oct, [facility] [place] [facility] [address] [id number] [place] [address]- 2476 September, [facility] [address] [id number] [place] [address]- 2549 September, [facility] [place] [facility] [address] [id number] [place] [address]- 2546 September, [facility] [place] [facility] [address] [id number] [place] [address]- 2546 Aug, [facility] [place] [facility] [address] [id number] [place] [address]- 9603 20 Aug, 2011 [facility] [place] [facility] [address] [id number] [place] [address]- 2118 Aug, [facility] [place] [facility] [address] [id number] [place] [address]- 5543 16 Aug, 2011 [facility] [place] [facility] [address] [id number] [place] [address]- 8634 Jul, [facility] [place] [facility] [address] [id number] [place] [address]- 5665 Jun, [facility] [place] [facility] [address] [id number] [place] [address]- 0827 14 Jun, 2011 [facility] [place] [facility] [address] [id number] [place] [address]- 8067 13 Jun, 2011 [facility] [place] [facility] [address] [id number] [place] [address]- 2578 07 Jun, 2011 [facility] [place] [facility] [address] [id number] [place] [address]- 4182 Jun, [facility] [place] [facility] [address] [id number] [place] [address]- 0216 May, [facility] [place] [facility] [address] [id number] [place] [address]- 2007 May, [facility] [place] [facility] [address] [id number] [place] [address]- 1555 May, [facility] [place] [facility] [address] [id number] [place] [address]- 8512 May, [facility] [place] [facility] [address] [id number] [place] [address]- 3054 Apr, [facility] [place] [facility] [address] [id number] [place] [address]- 7830 Apr, [facility] [place] [facility] [address] [id number] [place] [address]- 2951 05 Apr, 2011 [facility] [place] [facility] [address] [id number] [place] [address]- 2036 Mar, [facility] [address] [id number] [place] [address]- 2353 Mar, [facility] [address] [id number] [place] [address] 2546 Mar, [facility] [address] [id number] [place] [address]- 0676 13 Feb, 2011 [facility] [address] [id number] [place] [address]- 8941 Feb, [facility] [address] [id number] [place] [address]- 4163 Feb, [facility] [address] [id number] [place] [address]- 9056 Nov, [facility] [address] [id number] [place] [address]- 3851 September, [facility] [address] [id number] [place] [address]- 8563 Aug, [facility] [address] [id number] [place] [address]- 5845 14 Jul, 2010 [facility] [address] [facility] [id number] [place] [address]- 3112 May, [facility] [place] [facility] [address] [id number] [place] [address]- 5645 Apr, [facility] [address] [id number] [place] [address]- 6110 Apr, [facility] [address] [id number] [place] [address]- 2086 Apr, [facility] [address] [id number] [place] [address]- 2546 Apr, [facility] [address] [id number] [place] 1368 Apr, IMMUNIZATIONS No Known Immunizations SOCIAL HISTORY Never Assessed REASON FOR VISIT Lab (walk-in)--[facility] VITAL SIGNS MEDICATIONS Unknown Medications RESULTS Name Result Date Reference Range TSH 2017-01-19 TSH 1.170 0.450-4.500 CBC 2017-01-19 WBC 7.1 3.4-10.8 RBC 5.19 3.77-5.28 Hemoglobin 15.8 11.1-15.9 Hematocrit 45.9 34.0-46.6 MCV 88 79-97 MCH 30.4 26.6-33.0 MCHC 34.4 31.5-35.7 RDW 14.2 12.3-15.4 Platelets 305 150-379 Neutrophils 66 Lymphs 28 Monocytes 5 Eos 1 Basos 0 Neutrophils (Absolute) 4.7 1.4-7.0 Lymphs (Absolute) 2.0 0.7-3.1 Monocytes(Absolute) 0.4 0.1-0.9 Eos (Absolute) 0.1 0.0-0.4 Baso (Absolute) 0.0 0.0-0.2 Immature Granulocytes 0 Immature Grans (Abs) 0.0 0.0-0.1 LIPID PANEL 2017-01-19 Cholesterol, Total 140 100-199 Triglycerides 47 0-149 HDL Cholesterol 73 >39 VLDL Cholesterol Scooby 9 5-40 LDL Cholesterol Calc 58 0-99 CMP 2017-01-19 Glucose, Serum 88 65-99 BUN 8 6-24 Creatinine, Serum 0.48 0.57-1.00 eGFR If NonAfricn Am 115 >59 eGFR If Africn Am 132 >59 BUN/Creatinine Ratio 17 9-23 Sodium, Serum 136 134-144 Potassium, Serum 4.7 3.5-5.2 Chloride, Serum 91 96-106 Carbon Dioxide, Total 24 18-29 Calcium, Serum 10.1 8.7-10.2 Protein, Total, Serum 7.1 6.0-8.5 Albumin, Serum 5.2 3.5-5.5 Globulin, Total 1.9 1.5-4.5 A/G Ratio 2.7 1.2-2.2 Bilirubin, Total 0.3 0.0-1.2 Alkaline Phosphatase, S 84 39-117 AST (SGOT) 19 0-40 ALT (SGPT) 26 0-32 PROCEDURES Procedure Date Ordered Result Body Site [facility] Jan [facility] 2017 DEDE, ROUTINE* Jan 19, 2017 INSTRUCTIONS MEDICATIONS ADMINISTERED No Known Medications MEDICAL [...]
--- OUTSIDE RECORDS SUMMARY | 2017-11-18 07:04 | XMS REPORT ---
Author Author [facility] Address [address] [place] [address] Care Team Providers Care Manager Pipeline Name Role Phone [facility] Unavailable PROBLEMS Type Condition ICD9-CM Code HXD30-FY Code Onset Dates Condition Status SNOMED Code Problem Back pain M54.9 Active 053375622 Problem Diabetes E11.9 Active 65047808 Problem GERD (gastroesophageal reflux disease) K21.9 Active 428788380 Problem Hypertension I10 Active 76120143 Problem Anxiety disorder, unspecified F41.9 Active 878993599 Problem Other bipolar disorder F31.89 Active 59568075 Problem Fibromyalgia M79.7 Active 48448489 Problem Panic disorder with agoraphobia F40.01 Active 12346997 Problem Panlobular emphysema J43.1 Active 7422019 Problem Chronic obstructive pulmonary disease, unspecified J44.9 Active 36208668 Problem Akathisia G25.71 Active 425791258 Problem Lumbago with sciatica, left side M54.42 Active 662967547 Problem Migraine without aura and without status migrainosus, not intractable G43.009 Active 325909340 Problem Fibrocystic disease of right breast N60.11 Active 19684340 Problem Fibrocystic disease of left breast N60.12 Active 98270945 Problem Slow transit constipation K59.01 Active 40519662 Problem Essential tremor G25.0 Active 041997284 Problem Bipolar 1 disorder, depressed, moderate F31.32 Active 05029300 Problem Other chronic pain G89.29 Active 62171065 Problem Lumbago with sciatica, right side M54.41 Active 407626142 Problem Irritable bowel syndrome with constipation K58.1 Active 362414670 Problem Arthritis M19.90 Active 1595574 Problem Schizoaffective disorder, bipolar type F25.0 Active 88455223 Problem Irritable bowel syndrome with both constipation and diarrhea K58.2 Active 77672072 Problem Attention deficit hyperactivity disorder (ADHD), predominantly inattentive type F90.0 Active 09643714 Problem Bipolar I disorder with depression F31.9 Active 39551712 Problem Chronic post-traumatic stress disorder (PTSD) F43.12 Active 776568037 Problem Bipolar affective disorder, remission status unspecified F31.9 Active 72956232 Problem Mild persistent asthma without complication J45.30 Active 116444261 Problem Moderate persistent asthma without complication J45.40 Active 250330730 Problem Acute non-recurrent maxillary sinusitis J01.00 Active 68686993 Problem Bipolar 1 disorder, depressed, partial remission F31.75 Active 15988600 ALLERGIES No Information ENCOUNTERS Encounter Location Date Diagnosis [facility] [id number] [place] [address] 06998- 9388 Nov, [facility] [address] 88718- 2566 Nov, [facility] [address] 36289- 1623 Nov, [facility] [address] 43405- 4052 Oct, [facility] [id number] [place] [address] 33815- 3008 Oct, [facility] [id number] [place] [address] 52009- 8403 Oct, Type 2 diabetes mellitus with diabetic neuropathy, unspecified whether residential insulin use E11.40 ; Diabetes E11.9 ; Slow transit constipation K59.01 ; Edema of both legs R60.0 and Dysfunction of right eustachian tube H69.81 [facility] [id number] [place] [address] 79703- 0296 Oct, Frequent headaches R51 [facility] [address] 58345- 7592 Oct, [facility] [id number] [place] [address] 42056- 9511 Oct, [facility] [address] 59224- 5302 Oct, [facility] [address] [place] [address]- 0334 Oct, [facility] [id number] [place] [address] 69529- 8339 Oct, [facility] [address], [place] [address]- 5731 Oct, [facility] [id number] [place] [address] 24237- 7278 Oct, [facility] [id number] [place] [address] 85415- 8973 Oct, [facility] [id number] [place] [address] 78614- 3993 September, Frequent headaches R51 [facility] [id number] [place] [address] 85179- 9935 September, Bilateral otitis media with effusion H65.93 ; Dizziness R42 and Essential tremor G25.0 [facility] [id number] [place] [address] 72621- 0056 September, Chronic obstructive pulmonary disease, unspecified COPD type J44.9 [facility] [id number] [address]- 8883 September, Chronic obstructive pulmonary disease, unspecified COPD type J44.9 [facility] [address], [place] [address]- 1123 September, Migraine without aura and without status migrainosus, not intractable G43.009 [facility] [address], [place] [address]- 3701 September, [facility] [id number] [place] [address] 54426- 3145 September, [facility] [address], [place] [address]- 5275 September, [facility] [id number] [place] [address] 81229- 4905 September, Frequent headaches R51 [facility] [id number] [place] [address] 89055- 0498 Aug, [facility] [id number] [place] [address] 12701- 7408 Aug, Breast mass, right N63.10 [facility] [address] 59837- 6626 Aug, Breast lump N63.0 [facility] [address] 07571- 0633 Aug, [facility] [address] 66421- 4293 Aug, Bipolar affective disorder, remission status unspecified F31.9 and Diabetes E11.9 [facility] [id number] [place] [address] 30889- 9729 Aug, Diabetes E11.9 ; Schizoaffective disorder, bipolar type F25.0 ; Pharyngitis due to other organism J02.8 ; Panlobular emphysema J43.1 and Irritable bowel syndrome with both constipation and diarrhea K58.2 [facility] [id number] [place] [address] 99656- 6159 Aug, Abnormal mammogram R92.8 [facility] [id number] [place] [address] 00664- 6619 Aug, [facility] [id number] [place] [address] 18911- 0402 Aug, Bipolar 1 disorder, depressed, moderate F31.32 ; Panic disorder with agoraphobia F40.01 and Chronic post-traumatic stress disorder ( PTSD) F43.12 [facility] [id number] [place] [address] 21249- 4436 Aug, [facility] [id number] [place] [address] 50113- 2871 Aug, [facility] [address] [place] [address] 18742- 3853 Aug, [facility] [id number] [place] [address] 01987224- 1996 Jul, [facility] [id number] [place] [address] 33748- 5813 20 Jul, 2017 Mild persistent asthma without complication J45.30 [facility] [id number] [place] [address] 75178- 8223 19 Jul, 2017 Mild persistent asthma without complication J45.30 [facility] [id number] [place] [address] 019276- 6396 15 Jul, 2017 Bipolar affective disorder, remission status unspecified F31.9 ; Diabetes E11.9 and Irritable bowel syndrome with constipation K58.1 [facility] [id number] [place] [address] 29701- 2631 Jul, [facility] [id number] [place] [address] 66103- 6815 Jul, [facility] [id number] [place] [address] 30472- 1664 Jul, Frequent headaches R51 [facility] [id number] [place] [address] 66532- 1690 Jul, [facility] [id number] [place] [address] 19544- 9409 Jul, [facility] [address] [place] [address] 19094- 3810 Jul, [facility] [id number] [place] [address] 61766223- 5602 Jul, Frequent headaches R51 ; Fibrocystic disease of left breast N60.12 ; Fibrocystic disease of right breast N60.11 and Diabetes E11.9 [facility] [id number] [place] [address] 25895- 3724 Jul, [facility] [address] [place] [address] 74046- 6906 Jul, [facility] [id number] [place] [address] 19125- 9513 Jun, Exudative tonsillitis J03.90 [facility] [id number] [place] [address] 87671- 9602 Jun, [facility] [id number] [place] [address] 53745- 6236 Jun, [facility] [id number] [place] [address] 15696- 5908 15 Jun, 2017 Mild persistent asthma without complication J45.30 ; Chronic obstructive pulmonary disease, unspecified COPD type J44.9 and Exudative tonsillitis J03.90 [facility] [id number] [place] [address] 41154- 7116 13 Jun, 2017 Encounter for immunization Z23 [facility] [id number] [place] [address] 05085- 2880 Jun, [facility] [id number] [place] [address] 27011- 0926 Jun, [facility] [id number] [place] [address] 15920- 3047 Jun, [facility] [address] [place] [address] 50780 -4392 Jun, Tonsillitis J03.90 [facility] [id number] [place] [address] 67996- 6759 Jun, [facility] [id number] [place] [address] 84522- 0345 Jun, Acute non-recurrent maxillary sinusitis J01.00 [facility] [id number] [place] [address] 53283- 7925 Jun, [facility] [id number] [place] [address] 96306- 3143 May, [facility] [address] 21476- 8231 May, [facility] [id number] [place] [address] 90623- 6839 May, GERD (gastroesophageal reflux disease) K21.9 [facility] [address] 45306- 9226 May, Migraine without aura and without status migrainosus, not intractable G43.009 [facility] [address] 10674- 3867 May, [facility] [address] 14590- 2491 May, [facility] [address] 32970- 0085 May, Panlobular emphysema J43.1 and Acute non-recurrent maxillary sinusitis J01.00 [facility] [id number] [place] [address] 88064- 7392 May, Bipolar 1 disorder, depressed, moderate F31.32 ; Panic disorder with agoraphobia F40.01 and Akathisia G25.71 [facility] [id number] [place] [address] 34335- 9255 Apr, [facility] [id number] [place] [address] 58379- 8901 Apr, [facility] [id number] [place] [address] 17577- 5753 Apr, Acute non-recurrent maxillary sinusitis J01.00 [facility] [id number] [place] [address] 54267- 2944 Apr, Panlobular emphysema J43.1 [facility] [address] [place] [address]- 2494 Apr, [facility] [id number] [place] [address] 17814 -8745 Apr, Exudative tonsillitis J03.90 and Sore throat J02.9 [facility] [id number] [place] [address] 28093- 8127 17 Mar, 2017 [facility] [address] 21291- 7355 Mar, Acute non-recurrent maxillary sinusitis J01.00 [facility] [address] 24863- 6840 Mar, [facility] [address] 10132- 4386 Mar, Panlobular emphysema J43.1 and Diabetes E11.9 [facility] [address] 98987- 4115 Mar, [facility] [id number] [place] [address] 49548 -0434 Feb, Wheezing R06.2 and Acute recurrent pansinusitis J01.41 [facility] [id number] [place] [address] 18068- 0380 Feb, [facility] [id number] [place] [address] 15501- 9176 Feb, Acute non-recurrent maxillary sinusitis J01.00 [facility] [id number] [place] [address] 47942- 2961 Feb, Chronic obstructive pulmonary disease, unspecified J44.9 [facility] [address] 19136- 6883 Feb, Hypoxemia R09.02 and Chronic obstructive pulmonary disease, unspecified J44.9 [facility] [address] 62033- 9150 Jan, Bipolar 1 disorder, depressed, moderate F31.32 ; Panic disorder with agoraphobia F40.01 ; Chronic post-traumatic stress disorder (PTSD ) F43.12 ; Diabetes E11.9 and Moderate persistent asthma without complication J45.40 [facility] [id number] [place] [address] 65418 2546 22 Jan, 2017 [facility] [address] 32951 2546 19 Jan, 2017 Acute non-recurrent maxillary sinusitis J01.00 [facility] [id number] [place] [address] 45441 2546 18 Jan, 2017 [facility] [address] 85567 2546 Jan, [facility] [address] 30924 2546 Jan, Moderate persistent asthma without complication J45.40 and Hypoxemia R09.02 [facility] [id number] [place] [address] 24194 2546 Jan, Moderate persistent asthma without complication J45.40 and Hypoxemia R09.02 [facility] [id number] [place] [address] 13388 2546 Jan, [facility] [id number] [place] [address] 13219 2546 Dec, Acute non-recurrent maxillary sinusitis J01.00 [facility] [id number] [place] [address] 20095 2546 Dec, Chronic obstructive pulmonary disease, unspecified J44.9 [facility] [address] 42144 2546 Dec, [facility] [address] 91985 2546 Dec, Mild persistent asthma without complication J45.30 and Other chronic pain G89.29 [facility] [address] [place] [address]- 1864 Nov, [facility] [id number] [place] [address] 74973- 0615 Nov, Acute non-recurrent maxillary sinusitis J01.00 [facility] [id number] [place] [address] 75833- 9898 Nov, [facility] [id number] [place] [address] 04835- 9565 Nov, [facility] [id number] [place] [address] 86522- 4590 Oct, [facility] [id number] [place] [address] 92233- 6377 Oct, Bipolar 1 disorder, depressed, partial remission F31.75 ; Panic disorder with agoraphobia F40.01 and Chronic post-traumatic stress disorder (PTSD) F43.12 [facility] [id number] [place] [address] 15500- 3561 Oct, Acute non-recurrent maxillary sinusitis J01.00 [facility] [id number] [place] [address] 03024- 0597 Oct, [facility] [id number] [place] [address] 28044- 7117 Oct, Diabetes E11.9 [facility] [id number] [place] [address] 05700- 0396 September, Diabetes E11.9 [facility] [id number] [place] [address] 30867- 8483 September, Diabetes E11.9 and Sinus tachycardia R00.0 [facility] [id number] [place] [address] 48279- 1369 September, [facility] [id number] [place] [address] 18599- 5164 September, [facility] [id number] [place] [address] 38175- 0287 Aug, Diabetes E11.9 and Lumbago with sciatica, right side M54.41 [facility] [id number] [place] [address] 42890- 3296 Aug, [facility] [id number] [place] [address] 81964- 9111 Jul, Bipolar 1 disorder, depressed, moderate F31.32 ; Panic disorder with agoraphobia F40.01 and Chronic post-traumatic stress disorder ( PTSD) F43.12 [facility] [id number] [place] [address] 04172- 8787 Jul, Sore throat J02.9 [facility] [id number] [place] [address] 64329- 8775 Jul, [facility] [id number] [place] [address] 28649- 6396 Jul, [facility] [id number] [place] [address] 26777- 4983 Jul, [facility] [address] [place] [address] 90794- 0946 Jul, [facility] [id number] [place] [address] 14530- 5543 Jul, Sore throat J02.9 and Pharyngitis, unspecified etiology J02.9 [facility] [address], [place] [address]- 6782 Jun, [facility] [address], [place] [address]- 9477 Jun, Diabetes E11.9 [facility] [address] [place] [address] 04050- 5826 Jun, [facility] [address] [place] [address] 40635- 8266 Jun, [facility] [address] [address]- 1050 16 Jun, 2016 [facility] [address], [place] [address]- 1031 Jun, [facility] [address], [place] [address]- 5436 Jun, [facility] [address] [place] [address] 03003- 4300 Jun, [facility] [id number] [place] [address] 30549- 1889 Jun, [facility] [id number] [place] [address] 49853- 9037 Jun, [facility] [address] [place] [address] 12197- 5054 May, Diabetes E11.9 ; Other chronic pain G89.29 ; Acute recurrent maxillary sinusitis J01.01 ; Bipolar I disorder with depression F31.9 and Anxiety disorder, unspecified F41.9 [facility] [address], [place] [address]- 0321 May, [facility] [address] [place] [address] 39483- 4510 May, Diabetes E11.9 ; Bipolar I disorder with depression F31.9 ; Anxiety disorder, unspecified F41.9 ; Other chronic pain G89.29 and Acute recurrent maxillary sinusitis J01.01 [facility] [address], [place] [address]- 9848 May, [facility] [address] [place] [address] 07582- 4310 May, Attention deficit hyperactivity disorder (ADHD), predominantly inattentive type F90.0 [facility] [address], [place] [address]- 6501 May, [facility] [id number] [place] [address] 06207- 1851 Apr, Attention deficit hyperactivity disorder (ADHD), predominantly inattentive type F90.0 and Non-seasonal allergic rhinitis due to other allergic trigger J30.89 [facility] [id number] [place] [address] 13849- 0461 Apr, Bipolar 1 disorder, depressed, moderate F31.32 ; Panic disorder with agoraphobia F40.01 and Chronic post-traumatic stress disorder ( PTSD) F43.12 [facility] [id number] [place] [address] 16949- 9243 Apr, Dental examination Z01.20 [facility] [id number] [place] [address] 31357- 4569 Mar, [facility] [id number] [place] [address] 49958- 9476 Mar, [facility] [id number] [place] [address] 69690- 0358 Mar, Bipolar I disorder with depression F31.9 and Anxiety disorder, unspecified F41.9 [facility] [id number] [place] [address] 77403- 5738 Mar, Panic disorder with agoraphobia F40.01 ; Bipolar 1 disorder , depressed, moderate F31.32 and Chronic post-traumatic stress disorder (PTSD) F43.12 [facility] [id number] [place] [address] 84468- 4753 Mar, [facility] [id number] [place] [address] 69096- 2826 Mar, Dental caries K02.9 [facility] [id number] [place] [address] 21641- 1008 Feb, Lumbago with sciatica, left side M54.42 ; Lumbago with sciatica, right side M54.41 and Other chronic pain G89.29 [facility] [id number] [place] [address] 95834- 3514 Feb, [facility] [id number] [place] [address] 50613- 9014 14 Feb, 2016 [facility] [id number] [place] [address] 47969- 2394 Feb, Bipolar I disorder with depression F31.9 ; PTSD (post- traumatic stress disorder) F43.10 and Mood disorder F39 [facility] [address] 60776- 3524 Feb, [facility] [id number] [place] [address] 85552- 4410 11 Feb, 2016 Dental examination Z01.20 [facility] [address] 91301- 9483 07 Feb, 2016 [facility] [id number] [place] [address] 52534 -2330 03 Feb, 2016 Acute bronchitis, unspecified organism J20.9 [facility] [id number] [place] [address] 37783- 0731 26 Jan, 2016 Mood disorder F39 ; Migraine without aura and without status migrainosus, not intractable G43.009 ; Irritable bowel syndrome, unspecified type K58.9 ; Diabetes E11.9 and Encounter for immunization Z23 [facility] [id number] [place] [address] 45412- 7313 15 Jan, 2016 [facility] [id number] [place] [address] 54520- 4683 Jan, [facility] [id number] [place] [address] 44848- 3663 Jan, [facility] [address] 14655- [address] Jan, [facility] [id number] [place] [address] 45990- 3260 Jan, [facility] [id number] [place] [address] 16828- 7931 Dec, Bipolar I disorder with depression F31.9 ; PTSD (post- traumatic stress disorder) F43.10 and Panic disorder with agoraphobia F40.01 [facility] [id number] [place] [address] [phone]- 6247 Dec, Chronic obstructive pulmonary disease, unspecified COPD type J44.9 ; Tremor R25.1 and Anxiety F41.9 [place] [address] 46[address]- 69[address] Dec, [facility] [address] 137[address]- [address] Nov, Tremors of nervous system R25.1 and Cramping of feet R25.2 [place] [id number] [place] [address] 79840- 4238 Nov, [place] [address] 44[address]- 119[address] Nov, [facility] [id number] [place] [address] 53828- 9575 Oct, Chronic obstructive pulmonary disease, unspecified J44.9 [place] [id number] [place] [address] 96066- 3310 Oct, [place] [address] [place] [id number] [place] [address] 42898- 6918 Oct, Tremor R25.1 [facility] [address] 72437- 2968 Oct, Bipolar I disorder with depression F31.9 ; Diabetes E11.9 ; PTSD (post-traumatic stress disorder) F43.10 and Panic disorder with agoraphobia F40.01 [facility] [id number] [place] [address] 53860- 5686 Oct, Mood disorder F39 [facility] [id number] [place] [address] 57558- 3058 September, [facility] [id number] [place] [address] 58805- 6289 September, Diabetes E11.9 ; Bipolar I disorder with depression F31.9 ; PTSD (post-traumatic stress disorder) F43.10 and Panic disorder with agoraphobia F40.01 [place] [id number] [place] [address] 46517- 5328 September, Mood disorder F39 ; Schizoaffective disorder, unspecified type F25.9 ; Arthritis M19.90 ; Tremor R25.1 ; Acute non-recurrent frontal sinusitis J01.10 and Blood in stool K92.1 [place] [id number] [place] [address] 27531- 9766 September, [place] [id number] [place] [address] 66304- 8859 September, Chronic obstructive pulmonary disease, unspecified J44.9 [place] [id number] [place] [address] 20701- 4800 September, Diabetes E11.9 [place] [id number] [place] [address] 15204- 6273 Aug, Other bipolar disorder F31.89 and Anxiety disorder, unspecified F41.9 [place] [id number] [place] [address] 24139- 6947 Aug, [place] [id number] [place] [address] 52680- 4661 Aug, Diabetes E11.9 [place] [id number] [place] [address] 43038- 2735 Aug, [place] [id number] [place] [address] 32704- 4800 14 Aug, 2015 Diabetes E11.9 ; Fatigue R53.83 and Dizziness R42 [place] [id number] [place] [address] 59480- 6124 Aug, Other bipolar disorder F31.89 [place] [address] [address] 6076 Aug, Generalized anxiety disorder F41.1 [facility] [id number] [place] [address] 40439- 0776 Aug, Other bipolar disorder F31.89 and Anxiety disorder, unspecified F41.9 [facility] [id number] [place] [address] 86189- 4456 Aug, [facility] [id number] [place] [address] 68734- 2577 Jul, [facility] [id number] [place] [address] 76848- 4584 Jul, [facility] [id number] [place] [address] 43329- 1118 Jul, Bronchitis J40 [facility] [id number] [place] [address] 32415- 5993 Jul, Anxiety disorder F41.9 [facility] [id number] [place] [address] 16960- 6057 Jul, Other bipolar disorder F31.89 and Anxiety disorder, unspecified F41.9 [facility] [address], [place] [address]- 2177 Jul, Other bipolar disorder F31.89 and Fibromyalgia M79.7 [facility] [address], [place] [address]- 5561 Jul, [facility] [address], [place] [address]- 2547 Jul, [facility] [id number] [place] [address] 93575- 2276 Jul, [facility] [address] [place] [address] 89960- 2549 Jul, Other bipolar disorder F31.89 and Anxiety disorder, unspecified F41.9 [facility] [id number] [place] [address] 19725- 7053 Jun, GERD (gastroesophageal reflux disease) K21.9 [facility] [address] 47932- 1146 Jun, [facility] [id number] [place] [address] 94887- 0558 May, [facility] [address] 57220- 9751 May, Diabetes E11.9 ; Back pain M54.9 ; GERD (gastroesophageal reflux disease) K21.9 ; Hypertension I10 and Peripheral neuropathy G62.9 [facility] [id number] [place] [address] 89078- 2296 Mar, [facility] [id number] [place] [address] 06283- 0648 Mar, [facility] [id number] [place] [address] 44333- 0462 Mar, Acute sinusitis J01.90 and Otitis media, left H66.92 [facility] [id number] [place] [address] 57693- 0455 Feb, [facility] [id number] [place] [address] 24879- 0001 Feb, [facility] [id number] [place] [address] 67343- 0005 15 Feb, 2015 [facility] [id number] [place] [address] 44591- 9378 Feb, [facility] [id number] [place] [address] 76235- 1460 29 Jan, 2015 [facility] [id number] [place] [address] 02819- 8786 24 Jan, 2015 Diabetes 250.00 and Back pain 724.5 [facility] [address] 45537- 4233 Jan, [facility] [address] [place] [address] 09910- 3129 Dec, Diabetes 250.00 ; Benign essential hypertension 401.1 and Allergic rhinitis 477.9 [facility] [id number] [place] [address] 65897- 6510 Dec, [facility] [id number] [place] [address] 30290- 2348 Dec, [facility] [id number] [place] [address] 70012- 1791 Dec, Psychosis 298.9 [facility] [address] 88848- 6933 Dec, Medication side effect 995.20 and Generalized anxiety disorder 300.02 [facility] [id number] [place] [address] 42733- 5648 Dec, Acquired cognitive dysfunction 294.9 [facility] [id number] [place] [address] 12135- 8079 Dec, [facility] [id number] [place] [address] 43348- 5409 Dec, Unspecified myalgia and myositis 729.1 and Generalized anxiety disorder 300.02 [facility] [id number] [place] [address] 22092- 5552 Nov, [facility] [id number] [place] [address] 61700- 1712 Nov, [facility] [id number] [place] [address] 55538- 4366 Nov, [facility] [id number] [place] [address] 61943- 4387 Nov, Upper respiratory infection 465.9 and Chronic airway obstruction, not elsewhere classified 496 [facility] [id number] [place] [address] 97216- 3232 Nov, Hyponatremia 276.1 [facility] [address], [place] [address]- 2225 Oct, [facility] [address], [place] [address]- 8268 Oct, [facility] [address], [place] [address]- 5218 Oct, [facility] [id number] [place] [address] 07930- 2017 Oct, [facility] [address] [place] [address] 10910- 0014 Oct, Hyponatremia 276.1 [facility] [address] [place] [address] 03132- 4148 Oct, [facility] [address] [place] [address] 22867- 2249 Oct, [facility] [address], [place] [address]- 8480 Oct, Generalized anxiety disorder 300.02 [facility] [id number] [place] [address] 27941- 0092 Oct, Generalized anxiety disorder 300.02 and Diabetes 250.00 [facility] [address], [place] [address]- 1130 Aug, [facility] [address], [place] [address]- 1993 Aug, [facility] [address], [place] [address]- 3318 Jul, [facility] [address] [address]- 4961 Jul, [facility] [address], [place] [address]- 6923 Jun, [facility] [address] [place] [address] 95129- 9735 Jun, [facility] [address] [id number] [place] [address]- 9321 Jun, [facility] [place] [facility] [address] [id number] [place] [address]- 8416 Jun, [facility] [place] [facility] [address] [facility] [id number] [place] [address]- 7216 Jun, [facility] [place] [facility] [address] [id number] [place] [address]- 2727 May, [facility] [place] [facility] [address] [id number] [place] [address]- 4365 May, [facility] [address] [id number] [place] [address]- 9991 Apr, [facility] [address] [id number] [place] [address]- 7394 Apr, [facility] [place] [facility] [address] [id number] [place] [address]- 3128 Apr, [facility] [address] [id number] [place] [address]- 7543 Apr, [facility] [place] [facility] [address] [facility] [id number] [place] [address]- 2573 Apr, [facility] [place] [facility] [address] [facility] [id number] [address]- 8823 Apr, [facility] [place] [facility] [address] [id number], [place] [address]- 5493 Apr, [facility] [place] [facility] [address] [id number] [place] [address]- 8423 Apr, [facility] [place] [facility] [address] [id number] [place] [address]- 2595 Feb, [facility] [place] [facility] [address] [facility] [id number] [place] [address]- 1657 Feb, [facility] [place] [facility] [address] [id number] [place] [address]- 2546 Jan, [facility] [address] [id number] [place] [address]- 5116 Jan, [facility] [place] [facility] [address] [id number] [place] [address]- 2546 Dec, [facility] [address] [id number] [place] [address]- 2546 Dec, [facility] [address] [id number] [place] [address] 2546 Dec, [facility] [address] [id number] [place] [address]- 8458 Nov, [facility] [address] [id number] [place] [address]- 1586 Nov, [facility] [address] [id number] [place] [address]- 9384 Nov, [facility] [address] [id number] [place] [address]- 9625 Oct, [facility] [address] [id number] [place] [address]- 3706 Oct, [facility] [address] [id number] [place] [address]- 7695 Oct, [facility] [address] [id number] [place] [address]- 9656 September, [facility] [address] [id number] [place] [address]- 1549 September, [facility] [place] [facility] [address] [id number] [place] [address]- 2546 September, [facility] [address] [id number] [place] [address]- 2546 Aug, [facility] [place] [facility] [address] [id number] [place] [address]- 9733 Aug, [facility] [address] [id number] [place] [address]- 1194 Aug, [facility] [place] [facility] [address] [id number] [place] [address]- 8456 16 Aug, 2011 [facility] [place] [facility] [address] [id number] [place] [address]- 3942 Jul, [facility] [place] [facility] [address] [id number] [place] [address]- 4948 Jun, [facility] [place] [facility] [address] [id number] [place] [address]- 2298 14 Jun, 2011 [facility] [place] [facility] [address] [id number] [place] [address]- 0800 Jun, [facility] [place] [facility] [address] [id number] [place] [address]- 6169 Jun, [facility] [place] [facility] [address] [id number] [place] [address]- 2017 Jun, [facility] [place] [facility] [address] [id number] [place] [address]- 2704 May, [facility] [place] [facility] [address] [id number] [place] [address]- 7293 May, [facility] [place] [facility] [address] [id number] [place] [address]- 9091 May, [facility] [place] [facility] [address] [id number] [place] [address]- 8592 May, [facility] [place] [facility] [address] [id number] [place] [address]- 0196 Apr, [facility] [place] [facility] [address] [id number] [place] [address]- 5523 Apr, [facility] [place] [facility] [address] [id number] [place] [address]- 5506 Apr, [facility] [place] [facility] [address] [id number] [place] [address]- 1501 Mar, [facility] [address] [id number] [place] [address]- 9604 Mar, [facility] [address] [id number] [place] [address] 2546 Mar, [facility] [address] [id number] [place] [address]- 8848 13 Feb, 2011 [facility] [address] [id number] [place] [address]- 9364 13 Feb, 2011 [facility] [address] [facility] [id number] [place] [address]- 3485 Feb, [facility] [address] [facility] [id number] [place] [address]- 7172 Nov, [facility] [address] [facility] [id number] [place] [address]- 3395 September, [facility] [address] [facility] [id number] [place] [address]- 9371 Aug, [facility] [address] [facility] [id number] [place] [address]- 3525 14 Jul, 2010 [facility] [address] [facility] [id number] [place] [address]- 5550 May, [facility] [address] [facility] [id number] [place] [address]- 7860 Apr, [facility] [address] [facility] [id number] [place] [address]- 8462 Apr, [facility] [address] [facility] [id number] [place] [address]- 4135 Apr, [facility] [address] [facility] [id number] [place] [address]- 2906 Apr, [facility] [address] [facility] [id number] [address]- 2246 Apr, IMMUNIZATIONS Vaccine Route Administration Date Status FLULAVAL QUAD (6 MO AND UP) 2016 IM Intramuscular Jun 22, 2017 Administered SOCIAL HISTORY Never Assessed REASON FOR VISIT Flu shot-AHarrymanRN PLAN OF CARE VITAL SIGNS MEDICATIONS Unknown Medications RESULTS No Results PROCEDURES Procedure Date Ordered Result Body Site FLULAVAL QUAD (6 MO AND UP) 2016Jun 22, 2017 SINGLE IMMUNIZATION ADMIN Jun 22, 2017 INSTRUCTIONS MEDICATIONS ADMINISTERED No Known Medications [...]
--- OUTSIDE RECORDS SUMMARY | 2017-11-18 07:05 | XMS REPORT ---
Author Author WHIT GANDHI [facility] Address [address] [place] [address] Care Team Providers Care Health Analyst Name Role Phone WHIT GANDHI Unavailable PROBLEMS Type Condition ICD9-CM Code QCD56-JV Code Onset Dates Condition Status SNOMED Code Problem Back pain M54.9 Active 318095436 Problem GERD (gastroesophageal reflux disease) K21.9 Active 256365218 Problem Diabetes E11.9 Active 73141201 Problem Hypertension I10 Active 49938352 Problem Anxiety disorder, unspecified F41.9 Active 946741237 Problem Other bipolar disorder F31.89 Active 87312473 Problem Mild persistent asthma without complication J45.30 Active 526287552 Problem Fibromyalgia M79.7 Active 76742662 Problem Moderate persistent asthma without complication J45.40 Active 561667100 Problem Panic disorder with agoraphobia F40.01 Active 71293767 Problem Panlobular emphysema J43.1 Active 4523766 Problem Migraine without aura and without status migrainosus, not intractable G43.009 Active 370255131 Problem Akathisia G25.71 Active 196588397 Problem Schizoaffective disorder, bipolar type F25.0 Active 64694173 Problem Irritable bowel syndrome with both constipation and diarrhea K58.2 Active 49700104 Problem Lumbago with sciatica, left side M54.42 Active 403395992 Problem Other chronic pain G89.29 Active 40559877 Problem Chronic obstructive pulmonary disease, unspecified J44.9 Active 24752142 Problem Fibrocystic disease of left breast N60.12 Active 34945209 Problem Fibrocystic disease of right breast N60.11 Active 82337352 Problem Irritable bowel syndrome with constipation K58.1 Active 051252417 Problem Arthritis M19.90 Active 4846183 Problem Chronic post-traumatic stress disorder (PTSD) F43.12 Active 144027116 Problem Bipolar affective disorder, remission status unspecified F31.9 Active 74568611 Problem Lumbago with sciatica, right side M54.41 Active 230766061 Problem Bipolar 1 disorder, depressed, moderate F31.32 Active 81882748 Problem Acute non-recurrent maxillary sinusitis J01.00 Active 08940738 Problem Bipolar 1 disorder, depressed, partial remission F31.75 Active 53325850 Problem Attention deficit hyperactivity disorder (ADHD), predominantly inattentive type F90.0 Active 70814727 Problem Bipolar I disorder with depression F31.9 Active 68746336 ALLERGIES No Information ENCOUNTERS Encounter Location Date Diagnosis [place] [address] 570502- 0522 Nov, [place] [address] 138143- 2469 September, [place] [address] 584839- 2970 Aug, [place] [address] 17057- 8235 Aug, Breast mass, right N63.10 [place] [address] 54848- 6394 Aug, Breast lump N63.0 [place] [address] 54616- 4047 Aug, [place] [address] 01467- 2786 Aug, Bipolar affective disorder, remission status unspecified F31.9 and Diabetes E11.9 [place] [address] 78841- 7550 Aug, Diabetes E11.9 ; Schizoaffective disorder, bipolar type F25.0 ; Pharyngitis due to other organism J02.8 ; Panlobular emphysema J43.1 and Irritable bowel syndrome with both constipation and diarrhea K58.2 [place] [address] 93758- 7427 Aug, Abnormal mammogram R92.8 [place] [address] [place] [address]- 8661 13 Aug, 2017 [facility] [address] [place] [id number] [place] [address] 45281- 7889 Aug, Bipolar 1 disorder, depressed, moderate F31.32 ; Panic disorder with agoraphobia F40.01 and Chronic post-traumatic stress disorder ( PTSD) F43.12 [facility] [address] [place] [id number] [place] [address] 37137- 1336 Aug, [facility] [address] [place] [id number] [place] [address] 43935- 2974 Aug, [facility] [address] 01246- 6031 Aug, [facility] [address] [place] [id number] [place] [address] 90217- 8488 Jul, [facility] [address] 30574- 8462 Jul, Mild persistent asthma without complication J45.30 [facility] [address] [place] [id number] [place] [address] 03617- 5275 19 Jul, 2017 Mild persistent asthma without complication J45.30 [facility] [address] [place] [id number] [place] [address] 81430- 9305 15 Jul, 2017 Bipolar affective disorder, remission status unspecified F31.9 ; Diabetes E11.9 and Irritable bowel syndrome with constipation K58.1 [facility] [address] [place] [id number] [place] [address] 71568- 9705 Jul, [facility] [address] [place] [id number] [place] [address] 04782- 6840 Jul, [facility] [address] [place] [id number] [place] [address] 88150- 1353 Jul, Frequent headaches R51 [facility] [address] [place] [id number] [place] [address] 57057- 8419 Jul, [facility] [address] [place] [address]- 5827 Jul, [facility] [address] [place] [id number] [place] [address] 63275- 1979 Jul, [facility] [address] [place] [id number] [place] [address] 84295- 9408 Jul, Frequent headaches R51 ; Fibrocystic disease of left breast N60.12 ; Fibrocystic disease of right breast N60.11 and Diabetes E11.9 [facility] [address] [place] [id number] [place] [address] 23962- 5343 Jul, [place] [address] [place] [id number] [place] [address] 06139- 1362 Jul, [facility] [address] [place] [id number] [place] [address] 38923- 8968 Jun, Exudative tonsillitis J03.90 [place] [address] [place] [id number] [place] [address] 69167- 8939 Jun, [facility] [address] [place] [id number] [place] [address] 99262- 9780 Jun, [place] [address] [place] [id number] [place] [address] 67587- 5191 15 Jun, 2017 Mild persistent asthma without complication J45.30 ; Chronic obstructive pulmonary disease, unspecified COPD type J44.9 and Exudative tonsillitis J03.90 [place] [address] [place] [id number] [place] [address] 42392- 6576 13 Jun, 2017 Encounter for immunization Z23 [place] [address] [place] [id number] [place] [address] 78431- 3781 Jun, [place] [address] [place] [id number] [place] [address] 36961- 1726 Jun, [facility] [address] [place] [id number] [place] [address] 21153- 4624 Jun, [facility] [address] [place] [id number] [place] [address] 65481 -3642 06 Jun, 2017 Tonsillitis J03.90 [facility] [address] 80488- 5784 05 Jun, 2017 [place] [address] 87324- 9815 03 Jun, 2017 Acute non-recurrent maxillary sinusitis J01.00 [place] [address] 43147- 2897 02 Jun, 2017 [place] [address] 56316- 7657 May, [place] [address] 47461- 8623 May, [place] [address] 22692- 3840 May, GERD (gastroesophageal reflux disease) K21.9 [place] [address] 41975- 9723 May, Migraine without aura and without status migrainosus, not intractable G43.009 [place] [address] [place] [id number] [place] [address] 91416- 0949 May, [place] [address] [place] [id number] [place] [address] 04375- 4949 May, [place] [address] 55735- 3274 May, Panlobular emphysema J43.1 and Acute non-recurrent maxillary sinusitis J01.00 [place] [address] 40172- 1237 04 May, 2017 Bipolar 1 disorder, depressed, moderate F31.32 ; Panic disorder with agoraphobia F40.01 and Akathisia G25.71 [place] [address] 84673- 5593 Apr, [facility] [address] [place] [id number] [place] [address] 69698- 0899 Apr, [facility] [address] 35521- 2444 Apr, Acute non-recurrent maxillary sinusitis J01.00 [facility] [address] 06136- 4935 07 Apr, 2017 Panlobular emphysema J43.1 [facility] [address] 87305- 5453 Apr, [facility] [address] 63402 -7926 04 Apr, 2017 Sore throat J02.9 and Exudative tonsillitis J03.90 [place] [address] 25259- 9267 17 Mar, 2017 [facility] [address] 55715- 9963 15 Mar, 2017 Acute non-recurrent maxillary sinusitis J01.00 [place] [address] [place] [id number] [place] [address] 66010- 1092 Mar, [place] [address] [place] [id number] [place] [address] 67420- 4008 Mar, Panlobular emphysema J43.1 and Diabetes E11.9 [facility] [address] [place] [id number] [place] [address] 93778- 6341 Mar, [facility] [address] 01698 -9133 Feb, Wheezing R06.2 and Acute recurrent pansinusitis J01.41 [facility] [address] [place] [id number] [place] [address] 17797- 5471 Feb, [facility] [address] 43071- 4821 Feb, Acute non-recurrent maxillary sinusitis J01.00 [facility] [address] [place] [id number] [place] [address] 0234 Feb, Chronic obstructive pulmonary disease, unspecified J44.9 [facility] [address] [place] [address]- 7152 Feb, Hypoxemia R09.02 and Chronic obstructive pulmonary disease, unspecified J44.9 [place] [address] 1099 28 Jan, 2017 Bipolar 1 disorder, depressed, moderate F31.32 ; Panic disorder with agoraphobia F40.01 ; Chronic post-traumatic stress disorder (PTSD ) F43.12 ; Diabetes E11.9 and Moderate persistent asthma without complication J45.40 [place] [address] 70970- 9876 Jan, [place] [address] [place] [address]- 0235 Jan, Acute non-recurrent maxillary sinusitis J01.00 [place] [address] 146785- 3807 18 Jan, 2017 [place] [address] 98722- 0090 Jan, [place] [address] [place] [address]26231- 6966 Jan, Moderate persistent asthma without complication J45.40 and Hypoxemia R09.02 [place] [address] [place] [id number] [place] [address] 13358- 2544 11 Jan, 2017 Moderate persistent asthma without complication J45.40 and Hypoxemia R09.02 [place] [address] [place] [address]- 2545 Jan, [place] [address] [place] 41023939- 7549 Dec, Acute non-recurrent maxillary sinusitis J01.00 [facility] [id number] [place] [address] 39449- 2742 Dec, Chronic obstructive pulmonary disease, unspecified J44.9 [facility] [address] [place] [id number] [place] [address] 91657- 4704 Dec, [facility] [address] [place] [id number] [place] [address] 62638- 3347 Dec, Mild persistent asthma without complication J45.30 and Other chronic pain G89.29 [facility] [address] [place] [id number] [place] [address] 63399- 3390 Nov, [facility] [address] [place] [id number] [place] [address] 08344- 0877 Nov, Acute non-recurrent maxillary sinusitis J01.00 [facility] [address] [place] [id number] [place] [address] 78507- 6768 Nov, [facility] [address] [place] [id number] [place] [address] 24130- 7299 Nov, [facility] [address] [place] [id number] [place] [address] 59999- 1695 Oct, [facility] [address] [place] [id number] [place] [address] 01552- 1182 Oct, Bipolar 1 disorder, depressed, partial remission F31.75 ; Panic disorder with agoraphobia F40.01 and Chronic post-traumatic stress disorder (PTSD) F43.12 [facility] [id number] [place] [address] 19502- 9903 Oct, Acute non-recurrent maxillary sinusitis J01.00 [facility] [address] [place] [id number] [place] [address] 86730- 9455 Oct, [facility] [address] [place] [id number] [place] [address] 42494- 2386 Oct, Diabetes E11.9 [facility] [address] [place] [id number] [place] [address] 30732- 9873 September, Diabetes E11.9 [facility] [address] [address]- 5275 September, Diabetes E11.9 and Sinus tachycardia R00.0 [facility] [address] [place] [id number] [address]- 7673 September, [facility] [address] [place] [id number] [place] [address] 12732- 3770 September, [facility] [address] [place] [id number] [place] [address] 10623- 3342 Aug, Diabetes E11.9 and Lumbago with sciatica, right side M54.41 [facility] [address] [place] [id number] [place] [address] 11823- 0581 Aug, [facility] [address] [place] [id number] [place] [address] 54264- 4951 Jul, Bipolar 1 disorder, depressed, moderate F31.32 ; Panic disorder with agoraphobia F40.01 and Chronic post-traumatic stress disorder ( PTSD) F43.12 [facility] [address] [place] [id number] [place] [address] 76383- 6167 Jul, Sore throat J02.9 [facility] [address] [address]- 3792 Jul, [facility] [address] [address]- 1549 Jul, [facility] [address] [address]- 5403 Jul, [facility] [address] [place] [id number] [place] [address] 27706- 0864 Jul, [facility] [address] [address]- 8745 Jul, Sore throat J02.9 and Pharyngitis, unspecified etiology J02.9 [facility] [address] [address]- 0647 Jun, [facility] [address] [address]- 7750 Jun, Diabetes E11.9 [facility] [address] [address]- 1666 Jun, [facility] [address] [place] [id number] [place] [address] 76212- 5871 Jun, [facility] [address] [address]- 6842 Jun, [facility] [id number] [place] [address] 61445- 1069 Jun, [facility] [id number] [place] [address] 81883- 0682 Jun, [facility] [address] [place] [id number] [address]- 4392 Jun, [facility] [address] [address]- 9366 Jun, [facility] [address] [address]- 4757 Jun, [facility] [address] [address]- 5154 May, Diabetes E11.9 ; Bipolar I disorder with depression F31.9 ; Other chronic pain G89.29 ; Acute recurrent maxillary sinusitis J01.01 and Anxiety disorder, unspecified F41.9 [facility] [address] [address]- 9206 May, [facility] [address], [place] [address]- 6595 May, Diabetes E11.9 ; Bipolar I disorder with depression F31.9 ; Anxiety disorder, unspecified F41.9 ; Other chronic pain G89.29 and Acute recurrent maxillary sinusitis J01.01 [place] [address] [place] [id number] [place] [address] 40938- 0237 May, [place] [address] [place] [id number] [place] [address] 20071- 145 May, Attention deficit hyperactivity disorder (ADHD), predominantly inattentive type F90.0 [place] [address] 79382- 8633 May, [place] [address] [place] [id number] [place] [address] 84467- 1141 Apr, Attention deficit hyperactivity disorder (ADHD), predominantly inattentive type F90.0 and Non-seasonal allergic rhinitis due to other allergic trigger J30.89 [place] [address] [place] [id number] [place] [address] 01978- 2332 Apr, Bipolar 1 disorder, depressed, moderate F31.32 ; Panic disorder with agoraphobia F40.01 and Chronic post-traumatic stress disorder ( PTSD) F43.12 [place] [address] [place] [id number] [place] [address] 78539- 5851 06 Apr, 2016 Dental examination Z01.20 [place] [address] [place] [id number] [place] [address] 13206- 5180 Mar, [place] [address] [place] [id number] [place] [address] 03618- 5618 Mar, [place] [address] [place] [id number] [place] [address] 02055- 9819 Mar, Bipolar I disorder with depression F31.9 and Anxiety disorder, unspecified F41.9 [place] [address] [place] [id number] [place] [address] 41980- 2601 08 Mar, 2016 Panic disorder with agoraphobia F40.01 ; Bipolar 1 disorder , depressed, moderate F31.32 and Chronic post-traumatic stress disorder (PTSD) F43.12 [place] [address] [place] [id number] [place] [address] 34925- 6305 Mar, [facility] [address] [place] [id number] [place] [address] 72316- 2328 02 Mar, 2016 Dental caries K02.9 [place] [address] [place] [id number] [place] [address] 39676- 6940 24 Feb, 2016 Lumbago with sciatica, left side M54.42 ; Lumbago with sciatica, right side M54.41 and Other chronic pain G89.29 [place] [address] [place] [id number] [place] [address] 75189- 5062 17 Feb, 2016 [place] [address] 18632- 3751 14 Feb, 2016 [place] [address] [place] [id number] [place] [address] 12802- 4684 13 Feb, 2016 Bipolar I disorder with depression F31.9 ; PTSD (post- traumatic stress disorder) F43.10 and Mood disorder F39 [place] [address] [place] [id number] [place] [address] 16585- 6051 13 Feb, 2016 [place] [address] [place] [id number] [place] [address] 79079- 1989 11 Feb, 2016 Dental examination Z01.20 [place] [address] [place] [id number] [place] [address] 23298- 8963 07 Feb, 2016 [facility] [address] [place] [id number] [place] [address] 00011 -8574 03 Feb, 2016 Acute bronchitis, unspecified organism J20.9 [place] [address] [place] [id number] [place] [address] 86430- 6973 26 Jan, 2016 Mood disorder F39 ; Migraine without aura and without status migrainosus, not intractable G43.009 ; Irritable bowel syndrome, unspecified type K58.9 ; Diabetes E11.9 and Encounter for immunization Z23 [place] [address] [place] [id number] [place] [address] 61137- 7156 15 Jan, 2016 [place] [address] [place] [address]- 4523 Jan, [facility] [address] [address]- 3714 Jan, [facility] [address], [place] [address]- 4693 Jan, [facility] [id number] [place] [address] 16503- 6469 Jan, [facility] [address] [id number] [place] [address] 60572- 0489 Dec, Bipolar I disorder with depression F31.9 ; PTSD (post- traumatic stress disorder) F43.10 and Panic disorder with agoraphobia F40.01 [facility] [address] [address]- 8903 Dec, Chronic obstructive pulmonary disease, unspecified COPD type J44.9 ; Tremor R25.1 and Anxiety F41.9 [facility] [address] [id number] [address]- 4563 Dec, [facility] [address] [id number] [place] [address] 90410- 6860 Nov, Tremors of nervous system R25.1 and Cramping of feet R25.2 [facility] [address] [address]- 3296 Nov, [facility] [address] [address]- 7991 Nov, [facility] [address] [address]- 0149 Oct, Chronic obstructive pulmonary disease, unspecified J44.9 [facility] [address] [address]- 1721 Oct, [facility] [address] [address]- 3209 Oct, Tremor R25.1 [place] [address] [address]- 6567 23 Oct, 2015 Bipolar I disorder with depression F31.9 ; Diabetes E11.9 ; PTSD (post-traumatic stress disorder) F43.10 and Panic disorder with agoraphobia F40.01 [place] [address] [place] [id number] [place] [address] 22735- 8815 16 Oct, 2015 Mood disorder F39 [place] [address] [place] [id number] [place] [address] 91854- 8168 September, [place] [address] [place] [id number] [place] [address] 09918- 7867 September, Diabetes E11.9 ; Bipolar I disorder with depression F31.9 ; PTSD (post-traumatic stress disorder) F43.10 and Panic disorder with agoraphobia F40.01 [place] [address] [place] [id number] [place] [address] 88030- 1095 September, Mood disorder F39 ; Schizoaffective disorder, unspecified type F25.9 ; Arthritis M19.90 ; Tremor R25.1 ; Acute non-recurrent frontal sinusitis J01.10 and Blood in stool K92.1 [place] [address] [place] [id number] [place] [address] 87119- 5398 September, [place] [address] [place] [id number] [place] [address] 96916- 4667 September, Chronic obstructive pulmonary disease, unspecified J44.9 [place] [address] [id number] [place] [address] 41723- 4920 September, Diabetes E11.9 [facility] [id number] [place] [address] 00355- 6832 Aug, Other bipolar disorder F31.89 and Anxiety disorder, unspecified F41.9 [place] [id number] [place] [address] 48920- 7044 Aug, [place] [id number] [place] [address] 73166- 6431 Aug, Diabetes E11.9 [facility] [id number] [place] [address] 65652- 5426 Aug, [facility] [id number] [place] [address] [phone]- 0541 Aug, Diabetes E11.9 ; Fatigue R53.83 and Dizziness R42 [facility] [address] [address]- [address]86 Aug, Other bipolar disorder F31.89 [facility] [id number] [place] [address] 00255- 7320 Aug, Generalized anxiety disorder F41.1 [facility] [id number] [place] [address] 73838- 7634 Aug, Other bipolar disorder F31.89 and Anxiety disorder, unspecified F41.9 [facility] [id number] [place] [address] 16018- 0315 Aug, [facility] [id number] [place] [address] 21145- 4055 Jul, [facility] [id number] [place] [address] 38035- 4426 24 Jul, 2015 [facility] [id number] [place] [address] 66745- 0403 Jul, Bronchitis J40 [facility] [id number] [place] [address] 96186- 3911 Jul, Anxiety disorder F41.9 [facility] [id number] [place] [address] 81218- 5859 Jul, Other bipolar disorder F31.89 and Anxiety disorder, unspecified F41.9 [facility] [id number] [place] [address] 74518- 0981 Jul, Other bipolar disorder F31.89 and Fibromyalgia M79.7 [facility] [facility] [id number] [place] [address] 00336- 9377 Jul, [facility] [id number] [place] [address] 95471- 6904 Jul, [facility] [id number] [place] [address] 52464- 6036 Jul, [facility] [id number] [place] [address] 72349- 5916 Jul, Other bipolar disorder F31.89 and Anxiety disorder, unspecified F41.9 [facility] [id number] [place] [address] 16537- 2388 Jun, GERD (gastroesophageal reflux disease) K21.9 [facility] [id number] [place] [address] 89775- 6054 Jun, [facility] [id number] [place] [address] 97998- 1844 May, [facility] [id number] [place] [address] 02442- 2488 May, Diabetes E11.9 ; Back pain M54.9 ; GERD (gastroesophageal reflux disease) K21.9 ; Hypertension I10 and Peripheral neuropathy G62.9 [facility] [id number] [place] [address] 30548- 2572 Mar, [facility] [id number] [place] [address] 40730- 9975 Mar, [facility] [id number] [place] [address] 37066- 6273 Mar, Acute sinusitis J01.90 and Otitis media, left H66.92 [facility] [id number] [place] [address] 43647- 5727 Feb, [facility] [id number] [place] [address] 05226- 6147 Feb, [facility] [address] [address]- 7301 Feb, [facility] [address] [address] 4368 Feb, [facility] [id number] [place] [address] 70389- 2683 Jan, [facility] [id number] [place] [address] 15106- 7996 Jan, Diabetes 250.00 and Back pain 724.5 [facility] [id number] [place] [address] 01593- 0921 Jan, [facility] [id number] [place] [address] 10698- 9559 Dec, Diabetes 250.00 ; Benign essential hypertension 401.1 and Allergic rhinitis 477.9 [facility] [id number] [place] [address] 43488- 8343 Dec, [facility] [id number] [place] [address] 66633- 0620 Dec, [facility] [id number] [place] [address] 71399- 4923 Dec, Psychosis 298.9 [facility] [id number] [place] [address] 69719- 5655 Dec, Medication side effect 995.20 and Generalized anxiety disorder 300.02 [facility] [id number] [place] [address] 05942- 4232 Dec, Acquired cognitive dysfunction 294.9 [facility] [id number] [place] [address] 96236- 8291 Dec, [facility] [id number] [place] [address] 13644- 7361 Dec, Unspecified myalgia and myositis 729.1 and Generalized anxiety disorder 300.02 [facility] [id number] [place] [address] 80830- 7069 Nov, [facility] [address] [address] 2048 Nov, [facility] [id number] [place] [address] 45275- 0800 Nov, [facility] [address] [address] 7080 Nov, Upper respiratory infection 465.9 and Chronic airway obstruction, not elsewhere classified 496 [facility] [id number] [place] [address] 93824- 6325 Nov, Hyponatremia 276.1 [facility] [id number] [place] [address] 06359- 7587 Oct, [facility] [id number] [place] [address] 52781- 2455 Oct, [facility] [id number] [place] [address] 31903- 8232 Oct, [facility] [id number] [place] [address] 52919- 5654 Oct, [facility] [id number] [place] [address] 26631- 0745 Oct, Hyponatremia 276.1 [facility] [address] [address]- 2698 Oct, [facility] [address] [address]- 4426 Oct, [facility] [address] [address]- 4901 Oct, Generalized anxiety disorder 300.02 [facility] [id number] [place] [address] 60908- 8113 Oct, Generalized anxiety disorder 300.02 and Diabetes 250.00 [facility] [address] [address]- 4770 Aug, [facility] [id number] [place] [address]- 5883 13 Aug, 2014 [facility] [address] [id number] [place] [address]- 8488 Jul, [facility] [place] [facility] [address] [id number] [place] [address]- 5885 Jul, [facility] [address] [id number] [place] [address]- 7728 Jun, [facility] [place] [facility] [address] [id number] [place] [address]- 8979 Jun, [facility] [place] [facility] [address] [id number] [place] [address]- 7238 Jun, [facility] [address] [id number] [place] [address]- 7819 Jun, [facility] [place] [facility] [address] [id number] [place] [address]- 5415 Jun, [facility] [address] [id number] [place] [address]- 2454 May, [facility] [address] [id number] [place] [address]- 0919 May, [facility] [address] [id number] [place] [address]- 0736 Apr, [facility] [place] [facility] [address] [id number] [place] [address]- 3319 Apr, [facility] [place] [facility] [address] [id number] [place] [address]- 1753 18 Apr, 2013 [facility] [place] [facility] [address] [id number] [place] [address]- 3994 18 Apr, 2013 [facility] [place] [facility] [address] [id number] [place] [address]- 6832 17 Apr, 2013 [facility] [place] [facility] [address] [id number] [place] [address]- 3432 Apr, [facility] [place] [facility] [address] [id number] [place] [address] 254 Apr, [facility] [place] [facility] [address] [id number] [place] [address]- 5416 Apr, [facility] [place] [facility] [address] [id number] [place] [address] 2546 Feb, [facility] [place] [facility] [address] [id number] [place] [address]- 254 Feb, [facility] [place] [facility] [address] [id number] [place] [address] 2547 Jan, [facility] [place] [facility] [address] [id number] [place] [address] 2546 Jan, [facility] [place] [facility] [address] [id number] [place] [address]- 1829 Dec, [facility] [place] [facility] [address] [id number] [place] [address]- 5953 Dec, [facility] [place] [facility] [address] [id number] [place] [address]- 3138 Dec, [facility] [place] [facility] [address] [id number] [place] [address]- 1562 Nov, [facility] [place] [facility] [address] [id number], [place] [address]- 2545 Nov, [facility] [place] [facility] [address] [id number], [place] [address]- 2543 Nov, [facility] [place] [facility] [address] [id number] [place] [address]- 2540 Oct, [facility] [place] [facility] [address] [id number] [place] [address]- 2546 Oct, [facility] [place] [facility] [address] [id number] [place] [address]- 2546 Oct, [facility] [place] [facility] [address] [id number] [place] [address]- 4653 September, [facility] [address] [id number] [place] [address]- 6460 September, [facility] [address] [id number] [place] [address]- 9346 September, [facility] [address] [id number] [place] [address]- 1493 Aug, [facility] [address] [id number] [place] [address]- 4569 Aug, [facility] [address] [id number] [place] [address]- 1083 Aug, [facility] [address] [id number] [place] [address]- 7343 16 Aug, 2011 [facility] [address] [id number] [place] [address]- 9402 Jul, [facility] [address] [id number] [place] [address]- 7249 Jun, [facility] [address] [id number] [place] [address]- 2419 14 Jun, 2011 [facility] [address] [id number] [place] [address]- 4261 13 Jun, 2011 [facility] [address] [id number] [place] [address]- 7226 07 Jun, 2011 [facility] [address] [id number] [place] [address]- 8406 Jun, [facility] [place] [facility] [address] [id number] [place] [address]- 6063 13 May, 2011 [facility] [place] [facility] [address] [id number] [place] [address]- 3396 May, [facility] [address] [id number] [place] [address]- 1110 May, [facility] [place] [facility] [address] [id number] [place] [address]- 7892 May, [facility] [place] [facility] [address] [id number] [place] [address]- 0157 Apr, [facility] [place] [facility] [address] [id number] [place] [address]- 7071 Apr, [facility] [place] [facility] [address] [id number] [place] [address]- 6714 Apr, [facility] [place] [facility] [address] [id number] [place] [address]- 8067 Mar, [facility] [place] [facility] [address] [id number] [place] [address]- 3637 Mar, [facility] [place] [facility] [address] [id number] [place] [address]- 2237 Mar, [facility] [place] [facility] [address] [id number] [place] [address]- 2878 13 Feb, 2011 [facility] [place] [facility] [address] [id number] [place] [address]- 2951 Feb, [facility] [place] [facility] [address] [id number] [place] [address]- 9199 13 Feb, 2011 [facility] [place] [facility] [address] [id number], [place] [address]- 4463 Nov, [facility] [place] [facility] [address] [id number], [place] [address]- 6173 September, [facility] [place] [facility] [address] [id number] [place] [address]- 9080 Aug, [facility] [place] [facility] [address] [id number], [place] [address]- 0433 14 Jul, 2010 [facility] [place] [facility] [address] [id number], [place] [address]- 9904 May, [facility] [place] [facility] [address] [facility] [id number] [place] 0160 31 Apr, 2010 [facility] [address] [facility] [id number], [place] [address]- 3175 30 Apr, 2010 [facility] [address] [facility] [id number], [place] [address]- 9939 Apr, [facility] [address] [facility] [id number], [place] [address]- 5533 Apr, [facility] [address] [facility] [id number], [place] [address]- 5444 Apr, IMMUNIZATIONS No Known Immunizations SOCIAL HISTORY Never Assessed REASON FOR VISIT Controlled Refill Request PLAN OF CARE VITAL SIGNS MEDICATIONS Medication Instructions Dosage Frequency Start Date End Date Duration Status [place] 7.5-325 MG Orally 3 times a day 1 tablet as needed 8h Jan, 28 days Active RESULTS No Results PROCEDURES No [...]
--- OUTSIDE RECORDS SUMMARY | 2017-11-18 07:06 | XMS REPORT ---
Author Author WHIT GANDHI [facility] Address [address] [place] [address] Care Team Providers [facility] Name Role Phone WHIT GANDHI Unavailable PROBLEMS Type Condition ICD9-CM Code SRA31-OY Code Onset Dates Condition Status SNOMED Code Problem Back pain M54.9 Active 096678406 Problem Diabetes E11.9 Active 08616028 Problem GERD (gastroesophageal reflux disease) K21.9 Active 939816393 Problem Hypertension I10 Active 22631672 Problem Anxiety disorder, unspecified F41.9 Active 743932302 Problem Other bipolar disorder F31.89 Active 41277996 Problem Fibromyalgia M79.7 Active 67522202 Problem Panic disorder with agoraphobia F40.01 Active 02861632 Problem Panlobular emphysema J43.1 Active 1811438 Problem Chronic obstructive pulmonary disease, unspecified J44.9 Active 84585851 Problem Akathisia G25.71 Active 605251389 Problem Lumbago with sciatica, left side M54.42 Active 699822918 Problem Migraine without aura and without status migrainosus, not intractable G43.009 Active 174785488 Problem Fibrocystic disease of right breast N60.11 Active 91349519 Problem Fibrocystic disease of left breast N60.12 Active 94102906 Problem Slow transit constipation K59.01 Active 75311973 Problem Essential tremor G25.0 Active 113631213 Problem Bipolar 1 disorder, depressed, moderate F31.32 Active 03676606 Problem Other chronic pain G89.29 Active 57963573 Problem Lumbago with sciatica, right side M54.41 Active 963158675 Problem Irritable bowel syndrome with constipation K58.1 Active 190937415 Problem Arthritis M19.90 Active 0197962 Problem Schizoaffective disorder, bipolar type F25.0 Active 52885284 Problem Irritable bowel syndrome with both constipation and diarrhea K58.2 Active 61092299 Problem Attention deficit hyperactivity disorder (ADHD), predominantly inattentive type F90.0 Active 88793356 Problem Bipolar I disorder with depression F31.9 Active 23461940 Problem Chronic post-traumatic stress disorder (PTSD) F43.12 Active 387174451 Problem Bipolar affective disorder, remission status unspecified F31.9 Active 97823461 Problem Mild persistent asthma without complication J45.30 Active 644900731 Problem Moderate persistent asthma without complication J45.40 Active 106064592 Problem Acute non-recurrent maxillary sinusitis J01.00 Active 13096020 Problem Bipolar 1 disorder, depressed, partial remission F31.75 Active 58031170 ALLERGIES No Information ENCOUNTERS Encounter Location Date Diagnosis [facility] [id number] [place] [address] 89863- 4769 Nov, [facility] [address] 32072- 8515 Nov, [facility] [address] 32582- 4247 Nov, [facility] [address] 03494- 5094 Oct, [facility] [id number] [place] [address] 88017- 9942 Oct, [facility] [id number] [place] [address] 34332- 5713 Oct, Type 2 diabetes mellitus with diabetic neuropathy, unspecified whether detention insulin use E11.40 ; Diabetes E11.9 ; Slow transit constipation K59.01 ; Edema of both legs R60.0 and Dysfunction of right eustachian tube H69.81 [facility] [id number] [place] [address] 80399- 3572 Oct, Frequent headaches R51 [facility] [address] 49620- 4299 Oct, [facility] [id number] [place] [address] 71295- 6127 Oct, [facility] [address] 42827- 5113 Oct, [facility] [address] [place] [address] 2208 Oct, [facility] [id number] [place] [address] 80585- 8452 Oct, [facility] [address] [place] [address]- 3733 Oct, [facility] [id number] [place] [address] 80353- 5913 Oct, [facility] [id number] [place] [address] 98534- 3740 Oct, [facility] [id number] [place] [address] 59163- 6744 September, Frequent headaches R51 [facility] [id number] [place] [address] 91309- 5852 September, Bilateral otitis media with effusion H65.93 ; Dizziness R42 and Essential tremor G25.0 [facility] [id number] [place] [address] 22302- 5898 September, Chronic obstructive pulmonary disease, unspecified COPD type J44.9 [facility] [address] [address]- 3513 September, Chronic obstructive pulmonary disease, unspecified COPD type J44.9 [facility] [address] [address]- 2408 September, Migraine without aura and without status migrainosus, not intractable G43.009 [facility] [address] [place] [address]- 5745 September, [facility] [id number] [place] [address] 86383- 8363 September, [facility] [address] [place] [address]- 0292 September, [facility] [id number] [place] [address] 81409- 5519 September, Frequent headaches R51 [facility] [id number] [place] [address] 45403- 6958 Aug, [facility] [id number] [place] [address] 23126- 2861 Aug, Breast mass, right N63.10 [facility] [address] 26073- 7196 Aug, Breast lump N63.0 [facility] [address] 73696- 3658 Aug, [facility] [address] 19393- 9528 Aug, Bipolar affective disorder, remission status unspecified F31.9 and Diabetes E11.9 [facility] [id number] [place] [address] 82764- 7919 Aug, Diabetes E11.9 ; Schizoaffective disorder, bipolar type F25.0 ; Pharyngitis due to other organism J02.8 ; Panlobular emphysema J43.1 and Irritable bowel syndrome with both constipation and diarrhea K58.2 [facility] [id number] [place] [address] 21441- 0813 Aug, Abnormal mammogram R92.8 [facility] [id number] [place] [address] 86406- 9072 Aug, [facility] [id number] [place] [address] 24550- 5578 Aug, Bipolar 1 disorder, depressed, moderate F31.32 ; Panic disorder with agoraphobia F40.01 and Chronic post-traumatic stress disorder ( PTSD) F43.12 [facility] [id number] [place] [address] 93232- 3521 Aug, [facility] [id number] [place] [address] 72364- 6855 Aug, [facility] [address] [place] [address] 05774- 4976 Aug, [facility] [id number] [place] [address] 51667385- 7162 Jul, [facility] [id number] [place] [address] 03964- 7848 20 Jul, 2017 Mild persistent asthma without complication J45.30 [facility] [id number] [place] [address] 23133- 5421 19 Jul, 2017 Mild persistent asthma without complication J45.30 [facility] [id number] [place] [address] 841374- 5721 15 Jul, 2017 Bipolar affective disorder, remission status unspecified F31.9 ; Diabetes E11.9 and Irritable bowel syndrome with constipation K58.1 [facility] [id number] [place] [address] 67725- 3441 Jul, [facility] [id number] [place] [address] 84682- 2409 Jul, [facility] [id number] [place] [address] 28001- 6069 Jul, Frequent headaches R51 [facility] [id number] [place] [address] 32791- 0902 Jul, [facility] [id number] [place] [address] 80580- 5114 Jul, [facility] [address] [place] [address] 98018- 5605 Jul, [facility] [id number] [place] [address] [phone]- 3834 Jul, Frequent headaches R51 ; Fibrocystic disease of left breast N60.12 ; Fibrocystic disease of right breast N60.11 and Diabetes E11.9 [facility] [id number] [place] [address] 76172- 4849 Jul, [facility] [address] [place] [address] 84238- 1746 Jul, [facility] [id number] [place] [address] 58431- 0240 Jun, Exudative tonsillitis J03.90 [facility] [id number] [place] [address] 90234- 5357 Jun, [facility] [id number] [place] [address] 91167- 0990 Jun, [facility] [id number] [place] [address] 44684- 1705 15 Jun, 2017 Mild persistent asthma without complication J45.30 ; Chronic obstructive pulmonary disease, unspecified COPD type J44.9 and Exudative tonsillitis J03.90 [facility] [id number] [place] [address] 01199- 4839 13 Jun, 2017 Encounter for immunization Z23 [facility] [id number] [place] [address] 15162- 2300 Jun, [facility] [id number] [place] [address] 52727- 2166 Jun, [facility] [id number] [place] [address] 04203- 0972 Jun, [facility] [address] [place] [address] 65514 -9323 Jun, Tonsillitis J03.90 [facility] [id number] [place] [address] 20824- 8427 Jun, [facility] [id number] [place] [address] 72624- 6577 Jun, Acute non-recurrent maxillary sinusitis J01.00 [facility] [id number] [place] [address] 25737- 3256 Jun, [facility] [id number] [place] [address] 21606- 3008 May, [facility] [address] 42585- 6615 May, [facility] [id number] [place] [address] 61513- 1969 May, GERD (gastroesophageal reflux disease) K21.9 [facility] [address] 34222- 5151 May, Migraine without aura and without status migrainosus, not intractable G43.009 [facility] [address] 74792- 1556 May, [facility] [address] 40529- 6894 May, [facility] [address] 92775- 4584 May, Panlobular emphysema J43.1 and Acute non-recurrent maxillary sinusitis J01.00 [facility] [id number] [place] [address] 07601- 5925 May, Bipolar 1 disorder, depressed, moderate F31.32 ; Panic disorder with agoraphobia F40.01 and Akathisia G25.71 [facility] [id number] [place] [address] 74309- 4809 Apr, [facility] [id number] [place] [address] 81190- 4605 Apr, [facility] [id number] [place] [address] 85827- 1509 Apr, Acute non-recurrent maxillary sinusitis J01.00 [facility] [id number] [place] [address] 10159- 6155 Apr, Panlobular emphysema J43.1 [facility] [address] [place] [address]- 1790 Apr, [facility] [id number] [place] [address] 22508 -8200 Apr, Sore throat J02.9 and Exudative tonsillitis J03.90 [facility] [address] 44596- 8235 Mar, [facility] [address] 85945- 6093 Mar, Acute non-recurrent maxillary sinusitis J01.00 [facility] [address] 74182- 5988 Mar, [facility] [address] 29761- 4780 Mar, Panlobular emphysema J43.1 and Diabetes E11.9 [facility] [address] 75261- 9069 Mar, [facility] [id number] [place] [address] 07830 -6943 Feb, Wheezing R06.2 and Acute recurrent pansinusitis J01.41 [facility] [id number] [place] [address] 02701- 3473 Feb, [facility] [id number] [place] [address] 99311- 5202 Feb, Acute non-recurrent maxillary sinusitis J01.00 [facility] [id number] [place] [address] 27086- 9815 Feb, Chronic obstructive pulmonary disease, unspecified J44.9 [facility] [address] 14941- 8857 Feb, Hypoxemia R09.02 and Chronic obstructive pulmonary disease, unspecified J44.9 [facility] [address] 55822- 3217 Jan, Bipolar 1 disorder, depressed, moderate F31.32 ; Panic disorder with agoraphobia F40.01 ; Chronic post-traumatic stress disorder (PTSD ) F43.12 ; Diabetes E11.9 and Moderate persistent asthma without complication J45.40 [facility] [id number] [place] [address] 88660 2546 22 Jan, 2017 [facility] [address] 28480 2546 19 Jan, 2017 Acute non-recurrent maxillary sinusitis J01.00 [facility] [id number] [place] [address] 64253 2546 18 Jan, 2017 [facility] [address] 01841 2546 Jan, [facility] [address] 63034 2546 Jan, Moderate persistent asthma without complication J45.40 and Hypoxemia R09.02 [facility] [id number] [place] [address] 76714 2546 Jan, Moderate persistent asthma without complication J45.40 and Hypoxemia R09.02 [facility] [id number] [place] [address] 48001 2546 Jan, [facility] [id number] [place] [address] 57420 2546 Dec, Acute non-recurrent maxillary sinusitis J01.00 [facility] [id number] [place] [address] 40663 2546 Dec, Chronic obstructive pulmonary disease, unspecified J44.9 [facility] [address] 35503 2546 Dec, [facility] [address] 84031 2546 Dec, Mild persistent asthma without complication J45.30 and Other chronic pain G89.29 [facility] [address] [place] [address]- 8470 Nov, [facility] [id number] [place] [address] 26107- 5104 Nov, Acute non-recurrent maxillary sinusitis J01.00 [facility] [id number] [place] [address] 72390- 3230 Nov, [facility] [id number] [place] [address] 79446- 4474 Nov, [facility] [id number] [place] [address] 61968- 4288 Oct, [facility] [id number] [place] [address] 95585- 9017 Oct, Bipolar 1 disorder, depressed, partial remission F31.75 ; Panic disorder with agoraphobia F40.01 and Chronic post-traumatic stress disorder (PTSD) F43.12 [facility] [id number] [place] [address] 39914- 0715 Oct, Acute non-recurrent maxillary sinusitis J01.00 [facility] [id number] [place] [address] 52118- 1656 Oct, [facility] [id number] [place] [address] 29104- 5985 Oct, Diabetes E11.9 [facility] [id number] [place] [address] 28392- 7596 September, Diabetes E11.9 [facility] [id number] [place] [address] 68280- 2297 September, Diabetes E11.9 and Sinus tachycardia R00.0 [facility] [id number] [place] [address] 56859- 1860 September, [facility] [id number] [place] [address] 58599- 1786 September, [facility] [id number] [place] [address] 65845- 8035 Aug, Diabetes E11.9 and Lumbago with sciatica, right side M54.41 [facility] [id number] [place] [address] 84545- 6260 Aug, [facility] [id number] [place] [address] 85922- 7469 Jul, Bipolar 1 disorder, depressed, moderate F31.32 ; Panic disorder with agoraphobia F40.01 and Chronic post-traumatic stress disorder ( PTSD) F43.12 [facility] [id number] [place] [address] 60870- 7313 Jul, Sore throat J02.9 [facility] [id number] [place] [address] 36696- 8087 Jul, [facility] [id number] [place] [address] 64844- 9463 Jul, [facility] [id number] [place] [address] 07704- 7221 Jul, [facility] [address] [place] [address] 46145- 6686 Jul, [facility] [id number] [place] [address] 79355- 1331 Jul, Sore throat J02.9 and Pharyngitis, unspecified etiology J02.9 [facility] [address] [place] [address]- 4242 Jun, [facility] [address] [place] [address]- 9056 Jun, Diabetes E11.9 [facility] [address] [place] [address] 16785- 8496 Jun, [facility] [address] [place] [address] 41866- 4700 Jun, [facility] [address] [address]- 8755 16 Jun, 2016 [facility] [address] [place] [address]- 1668 Jun, [facility] [address] [place] [address]- 7775 Jun, [facility] [address] [place] [address] 96130- 5995 Jun, [facility] [id number] [place] [address] 34739- 3356 Jun, [facility] [id number] [place] [address] 73078- 6153 Jun, [facility] [address] [place] [address] 10950- 7130 May, Diabetes E11.9 ; Bipolar I disorder with depression F31.9 ; Other chronic pain G89.29 ; Acute recurrent maxillary sinusitis J01.01 and Anxiety disorder, unspecified F41.9 [facility] [address] [place] [address]- 5680 May, [facility] [address] [place] [address] 06494- 1758 May, Diabetes E11.9 ; Bipolar I disorder with depression F31.9 ; Anxiety disorder, unspecified F41.9 ; Other chronic pain G89.29 and Acute recurrent maxillary sinusitis J01.01 [facility] [address] [place] [address]- 7814 May, [facility] [address] [place] [address] 18233- 9434 May, Attention deficit hyperactivity disorder (ADHD), predominantly inattentive type F90.0 [facility] [address] [place] [address]- 7531 May, [facility] [address] [place] [address] 20653- 2320 Apr, Attention deficit hyperactivity disorder (ADHD), predominantly inattentive type F90.0 and Non-seasonal allergic rhinitis due to other allergic trigger J30.89 [facility] [id number] [place] [address] 73385- 7572 Apr, Bipolar 1 disorder, depressed, moderate F31.32 ; Panic disorder with agoraphobia F40.01 and Chronic post-traumatic stress disorder ( PTSD) F43.12 [facility] [id number] [place] [address] 06729- 4350 Apr, Dental examination Z01.20 [facility] [id number] [place] [address] 98018- 4413 Mar, [facility] [id number] [place] [address] 84501- 4189 Mar, [facility] [id number] [place] [address] 40553- 4176 Mar, Bipolar I disorder with depression F31.9 and Anxiety disorder, unspecified F41.9 [facility] [id number] [place] [address] 85200- 4565 Mar, Panic disorder with agoraphobia F40.01 ; Bipolar 1 disorder , depressed, moderate F31.32 and Chronic post-traumatic stress disorder (PTSD) F43.12 [facility] [id number] [place] [address] 34275- 3484 Mar, [facility] [id number] [place] [address] 24826- 8727 Mar, Dental caries K02.9 [facility] [id number] [place] [address] 10750- 6706 Feb, Lumbago with sciatica, left side M54.42 ; Lumbago with sciatica, right side M54.41 and Other chronic pain G89.29 [facility] [id number] [place] [address] 29753- 0034 Feb, [facility] [id number] [place] [address] 40172- 0856 14 Feb, 2016 [facility] [id number] [place] [address] 16776- 9015 Feb, Bipolar I disorder with depression F31.9 ; PTSD (post- traumatic stress disorder) F43.10 and Mood disorder F39 [facility] [address] 03303- 7139 Feb, [facility] [id number] [place] [address] 80663- 8664 11 Feb, 2016 Dental examination Z01.20 [facility] [address] 36105- 7875 07 Feb, 2016 [facility] [id number] [place] [address] 84606 -4096 03 Feb, 2016 Acute bronchitis, unspecified organism J20.9 [facility] [id number] [place] [address] 29304- 9420 26 Jan, 2016 Mood disorder F39 ; Migraine without aura and without status migrainosus, not intractable G43.009 ; Irritable bowel syndrome, unspecified type K58.9 ; Diabetes E11.9 and Encounter for immunization Z23 [facility] [id number] [place] [address] 70125- 4484 15 Jan, 2016 [facility] [id number] [place] [address] 99335- 5628 Jan, [facility] [id number] [place] [address] 41419- 3749 Jan, [facility] [address] 73273- 1595 Jan, [facility] [id number] [place] [address] 21990- 3236 Jan, [facility] [id number] [place] [address] 48606- 6851 Dec, Bipolar I disorder with depression F31.9 ; PTSD (post- traumatic stress disorder) F43.10 and Panic disorder with agoraphobia F40.01 [facility] [id number] [place] [address] 55052- 1276 Dec, Chronic obstructive pulmonary disease, unspecified COPD type J44.9 ; Tremor R25.1 and Anxiety F41.9 [place] [address] [address] Dec, [facility] [address] [address]- [address] Nov, Tremors of nervous system R25.1 and Cramping of feet R25.2 [place] [id number] [place] [address] 48583- 8872 Nov, [place] [address] [address]- [address] Nov, [facility] [id number] [place] [address] 10907- 7839 Oct, Chronic obstructive pulmonary disease, unspecified J44.9 [place] [id number] [place] [address] [phone]- 2582 Oct, [place] [id number] [place] [address] 82907- 3291 Oct, Tremor R25.1 [facility] [address] [address]- [address] Oct, Bipolar I disorder with depression F31.9 ; Diabetes E11.9 ; PTSD (post-traumatic stress disorder) F43.10 and Panic disorder with agoraphobia F40.01 [facility] [id number] [place] [address] 98545- 7509 Oct, Mood disorder F39 [facility] [id number] [place] [address] 02042- [phone] September, [facility] [id number] [place] [address] 44227- 0436 September, Diabetes E11.9 ; Bipolar I disorder with depression F31.9 ; PTSD (post-traumatic stress disorder) F43.10 and Panic disorder with agoraphobia F40.01 [place] [facility] [id number] [place] [address] 57672- 9530 September, Mood disorder F39 ; Schizoaffective disorder, unspecified type F25.9 ; Arthritis M19.90 ; Tremor R25.1 ; Acute non-recurrent frontal sinusitis J01.10 and Blood in stool K92.1 [place] [id number] [place] [address] 21486- 3769 September, [facility] [id number] [place] [address] 20463- 3010 September, Chronic obstructive pulmonary disease, unspecified J44.9 [facility] [place] [id number] [place] [address] 40975- 0509 September, Diabetes E11.9 [facility] [id number] [place] [address] 66482- 6053 Aug, Other bipolar disorder F31.89 and Anxiety disorder, unspecified F41.9 [place] [id number] [place] [address] 87170- 1082 Aug, [place] [id number] [place] [address] 21012- 9167 Aug, Diabetes E11.9 [facility] [id number] [place] [address] 92802- 5943 Aug, [facility] [id number] [place] [address] 57385- 8142 14 Aug, 2015 Diabetes E11.9 ; Fatigue R53.83 and Dizziness R42 [facility] [place] [id number] [place] [address] 30995- 2363 Aug, Other bipolar disorder F31.89 [address] [place] [address] [address] 7104 Aug, Generalized anxiety disorder F41.1 [facility] [id number] [place] [address] 67891- 6826 Aug, Other bipolar disorder F31.89 and Anxiety disorder, unspecified F41.9 [facility] [id number] [place] [address] 57176- 3986 Aug, [facility] [id number] [place] [address] 67372- 6520 Jul, [facility] [id number] [place] [address] 48173- 1434 Jul, [facility] [id number] [place] [address] 01288- 4717 Jul, Bronchitis J40 [facility] [id number] [place] [address] 10385- 2077 Jul, Anxiety disorder F41.9 [facility] [id number] [place] [address] 63536- 3844 Jul, Other bipolar disorder F31.89 and Anxiety disorder, unspecified F41.9 [facility] [address] [address]- 0303 Jul, Other bipolar disorder F31.89 and Fibromyalgia M79.7 [facility] [address] [address]- 6509 Jul, [facility] [address] [address]- 2540 Jul, [facility] [id number] [place] [address] 18093- 0436 Jul, [facility] [address] [place] [address] 30686- 2544 Jul, Other bipolar disorder F31.89 and Anxiety disorder, unspecified F41.9 [facility] [id number] [place] [address] 57740- 7603 Jun, GERD (gastroesophageal reflux disease) K21.9 [facility] [address] 09779- 7410 Jun, [facility] [id number] [place] [address] 27629- 9467 May, [facility] [address] 47845- 1513 May, Diabetes E11.9 ; Back pain M54.9 ; GERD (gastroesophageal reflux disease) K21.9 ; Hypertension I10 and Peripheral neuropathy G62.9 [facility] [id number] [place] [address] 09144- 6948 Mar, [facility] [id number] [place] [address] 53794- 0370 Mar, [facility] [id number] [place] [address] 47546- 8835 Mar, Acute sinusitis J01.90 and Otitis media, left H66.92 [facility] [id number] [place] [address] 56878- 1124 Feb, [facility] [id number] [place] [address] 56249- 0142 Feb, [facility] [id number] [place] [address] 29441- 2390 15 Feb, 2015 [facility] [id number] [place] [address] 79196- 5892 Feb, [facility] [id number] [place] [address] 48320- 2323 29 Jan, 2015 [facility] [id number] [place] [address] 74269- 2115 24 Jan, 2015 Diabetes 250.00 and Back pain 724.5 [facility] [address] 25566- 3969 Jan, [facility] [address] [place] [address] 91523- 3074 Dec, Diabetes 250.00 ; Benign essential hypertension 401.1 and Allergic rhinitis 477.9 [facility] [id number] [place] [address] 52927- 4101 Dec, [facility] [id number] [place] [address] 23159- 1803 Dec, [facility] [id number] [place] [address] 94798- 9455 Dec, Psychosis 298.9 [facility] [address] 73844- 6811 Dec, Medication side effect 995.20 and Generalized anxiety disorder 300.02 [facility] [id number] [place] [address] 58298- 9378 Dec, Acquired cognitive dysfunction 294.9 [facility] [id number] [place] [address] 80993- 8262 Dec, [facility] [id number] [place] [address] 18759- 3048 Dec, Unspecified myalgia and myositis 729.1 and Generalized anxiety disorder 300.02 [facility] [id number] [place] [address] 19319- 1100 Nov, [facility] [id number] [place] [address] 67877- 2671 Nov, [facility] [id number] [place] [address] 30657- 9147 Nov, [facility] [id number] [place] [address] 38660- 6079 Nov, Upper respiratory infection 465.9 and Chronic airway obstruction, not elsewhere classified 496 [facility] [id number] [place] [address] 94596- 9691 Nov, Hyponatremia 276.1 [facility] [address], [place] [address]- 8077 Oct, [facility] [address] [address]- 2835 Oct, [facility] [address] [address]- 2757 Oct, [facility] [id number] [place] [address] 85256- 1835 Oct, [facility] [address] [place] [address] 53638- 5757 Oct, Hyponatremia 276.1 [facility] [address] [place] [address] 42680- 4163 Oct, [facility] [address] [place] [address] 42177- 8658 Oct, [facility] [address], [place] [address]- 2022 Oct, Generalized anxiety disorder 300.02 [facility] [id number] [place] [address] 67689- 2197 Oct, Generalized anxiety disorder 300.02 and Diabetes 250.00 [facility] [address], [place] [address]- 4700 Aug, [facility] [address] [address]- 0980 Aug, [facility] [address], [place] [address]- 7928 Jul, [facility] [id number] [address]- 1868 Jul, [facility] [address], [place] [address]- 9172 Jun, [facility] [address] [place] [address] 53523- 1474 Jun, [facility] [address] [id number] [place] [address]- 3013 Jun, [facility] [place] [facility] [address] [id number] [place] [address]- 1226 Jun, [facility] [place] [facility] [address] [facility] [id number] [place] [address]- 9896 Jun, [facility] [place] [facility] [address] [id number] [place] [address]- 8765 May, [facility] [place] [facility] [address] [id number] [place] [address]- 4487 May, [facility] [address] [id number] [place] [address]- 6273 Apr, [facility] [address] [id number] [place] [address]- 5647 Apr, [facility] [place] [facility] [address] [id number] [place] [address]- 8416 Apr, [facility] [address] [id number] [place] [address]- 5705 Apr, [facility] [place] [facility] [address] [facility] [id number] [place] [address]- 2753 Apr, [facility] [place] [facility] [address] [facility] [id number], [place] [address]- 6541 Apr, [facility] [place] [facility] [address] [id number], [place] [address]- 8964 Apr, [facility] [place] [facility] [address] [id number] [place] [address]- 4558 Apr, [facility] [place] [facility] [address] [id number] [place] [address]- 1597 Feb, [facility] [place] [facility] [address] [facility] [id number] [place] [address]- 7354 Feb, [facility] [place] [facility] [address] [id number] [place] [address]- 2546 Jan, [facility] [address] [id number] [place] [address]- 5386 Jan, [facility] [place] [facility] [address] [id number] [place] [address]- 2546 Dec, [facility] [address] [id number] [place] [address]- 2546 Dec, [facility] [address] [id number] [place] [address] 2546 Dec, [facility] [address] [id number] [place] [address]- 8919 Nov, [facility] [address] [id number] [place] [address]- 7956 Nov, [facility] [address] [id number] [place] [address]- 4522 Nov, [facility] [address] [id number] [place] [address]- 9860 Oct, [facility] [address] [id number] [place] [address]- 5898 Oct, [facility] [address] [id number] [place] [address]- 8064 Oct, [facility] [address] [id number] [place] [address]- 8616 September, [facility] [address] [id number] [place] [address]- 7253 September, [facility] [place] [facility] [address] [id number] [place] [address]- 2546 September, [facility] [address] [id number] [place] [address]- 2546 Aug, [facility] [place] [facility] [address] [id number] [place] [address]- 8942 Aug, [facility] [address] [id number] [place] [address]- 4604 Aug, [facility] [place] [facility] [address] [id number] [place] [address]- 0616 16 Aug, 2011 [facility] [place] [facility] [address] [id number] [place] [address]- 7536 Jul, [facility] [place] [facility] [address] [id number] [place] [address]- 2100 Jun, [facility] [place] [facility] [address] [id number] [place] [address]- 8593 14 Jun, 2011 [facility] [place] [facility] [address] [id number] [place] [address]- 6267 Jun, [facility] [place] [facility] [address] [id number] [place] [address]- 3747 Jun, [facility] [place] [facility] [address] [id number] [place] [address]- 3859 Jun, [facility] [place] [facility] [address] [id number] [place] [address]- 7063 May, [facility] [place] [facility] [address] [id number] [place] [address]- 0247 May, [facility] [place] [facility] [address] [id number] [place] [address]- 4222 May, [facility] [place] [facility] [address] [id number] [place] [address]- 0193 May, [facility] [place] [facility] [address] [id number] [place] [address]- 2855 Apr, [facility] [place] [facility] [address] [id number] [place] [address]- 0319 Apr, [facility] [place] [facility] [address] [id number] [place] [address]- 3120 Apr, [facility] [place] [facility] [address] [id number] [place] [address]- 1254 Mar, [facility] [address] [id number] [place] [address]- 7642 Mar, [facility] [address] [id number] [place] [address]- 9788 Mar, [facility] [address] [id number] [place] [address]- 7723 13 Feb, 2011 [facility] [address] [id number] [place] [address]- 8604 13 Feb, 2011 [facility] [id number] [place] [address], [place] [address]- 4987 Feb, [facility] [address] [facility] [id number] [place] [address]- 7905 Nov, [facility] [address] [facility] [id number] [place] [address]- 5965 September, [facility] [address] [facility] [id number] [place] [address]- 9284 Aug, [facility] [address] [facility] [id number] [place] [address]- 0159 14 Jul, 2010 [facility] [address] [facility] [id number] [place] [address]- 7767 May, [facility] [address] [facility] [id number] [place] [address]- 6497 Apr, [facility] [address] [id number] [place] [address]- 8454 30 Apr, 2010 [facility] [address] [facility] [id number] [place] [address]- 2105 Apr, [facility] [address] [facility] [id number] [place] [address]- 4480 Apr, [facility] [address] [facility] [id number] [place] [address]- 3937 Apr, IMMUNIZATIONS No Known Immunizations SOCIAL HISTORY Never Assessed REASON FOR VISIT PA for Butal/APAP/Codeine PLAN OF CARE VITAL SIGNS MEDICATIONS Unknown [...]
--- OUTSIDE RECORDS SUMMARY | 2017-11-18 07:06 | XMS REPORT ---
Author Author JOHANN YVON Organization [facility] Address [address] [place] [address] Care Team Providers Care Professor Of Criminal Justice Name Role Phone YVON WILLS Unavailable PROBLEMS Type Condition ICD9-CM Code MFN76-TO Code Onset Dates Condition Status SNOMED Code Problem Back pain M54.9 Active 692344340 Problem Diabetes E11.9 Active 86918875 Problem GERD (gastroesophageal reflux disease) K21.9 Active 463874761 Problem Hypertension I10 Active 71511993 Problem Anxiety disorder, unspecified F41.9 Active 804315015 Problem Other bipolar disorder F31.89 Active 21349350 Problem Fibromyalgia M79.7 Active 75254504 Problem Panic disorder with agoraphobia F40.01 Active 81644498 Problem Panlobular emphysema J43.1 Active 1892029 Problem Chronic obstructive pulmonary disease, unspecified J44.9 Active 79907423 Problem Akathisia G25.71 Active 499993650 Problem Lumbago with sciatica, left side M54.42 Active 020395725 Problem Migraine without aura and without status migrainosus, not intractable G43.009 Active 760503089 Problem Fibrocystic disease of right breast N60.11 Active 04063797 Problem Fibrocystic disease of left breast N60.12 Active 10968627 Problem Slow transit constipation K59.01 Active 34431750 Problem Essential tremor G25.0 Active 247384185 Problem Bipolar 1 disorder, depressed, moderate F31.32 Active 94640678 Problem Other chronic pain G89.29 Active 01387046 Problem Lumbago with sciatica, right side M54.41 Active 258875361 Problem Irritable bowel syndrome with constipation K58.1 Active 373858126 Problem Arthritis M19.90 Active 2438383 Problem Schizoaffective disorder, bipolar type F25.0 Active 12273227 Problem Irritable bowel syndrome with both constipation and diarrhea K58.2 Active 03203194 Problem Attention deficit hyperactivity disorder (ADHD), predominantly inattentive type F90.0 Active 85860404 Problem Bipolar I disorder with depression F31.9 Active 76193009 Problem Chronic post-traumatic stress disorder (PTSD) F43.12 Active 738402547 Problem Bipolar affective disorder, remission status unspecified F31.9 Active 62935925 Problem Mild persistent asthma without complication J45.30 Active 722797315 Problem Moderate persistent asthma without complication J45.40 Active 534599949 Problem Acute non-recurrent maxillary sinusitis J01.00 Active 79841062 Problem Bipolar 1 disorder, depressed, partial remission F31.75 Active 00433185 ALLERGIES No Information ENCOUNTERS Encounter Location Date Diagnosis [facility] [id number] [place] [address] 76261- 1612 Nov, [facility] [address] 17860- 3195 Nov, [facility] [address] 54542- 3451 Nov, [facility] [address] 90020- 7827 Oct, [facility] [id number] [place] [address] 46483- 6140 Oct, [facility] [id number] [place] [address] 64429- 1418 Oct, Type 2 diabetes mellitus with diabetic neuropathy, unspecified whether long term care administrator insulin use E11.40 ; Diabetes E11.9 ; Slow transit constipation K59.01 ; Edema of both legs R60.0 and Dysfunction of right eustachian tube H69.81 [facility] [id number] [place] [address] 91648- 6947 Oct, Frequent headaches R51 [facility] [address] 28878- 6108 Oct, [facility] [id number] [place] [address] 97761- 8052 Oct, [facility] [address] 45540- 7218 Oct, [facility] [address] [address] 9638 Oct, [facility] [id number] [place] [address] 92805- 1764 Oct, [facility] [id number] [place] [address] 17207- 1483 Oct, [facility] [id number] [place] [address] 90317- 6849 Oct, [facility] [id number] [place] [address] 41638- 3515 Oct, [facility] [id number] [place] [address] 33973- 1239 September, Frequent headaches R51 [facility] [id number] [place] [address] 17193- 0891 September, Bilateral otitis media with effusion H65.93 ; Dizziness R42 and Essential tremor G25.0 [facility] [id number] [place] [address] 45132- 0784 September, Chronic obstructive pulmonary disease, unspecified COPD type J44.9 [facility] [id number] [place] [address] 66045- 0765 September, Chronic obstructive pulmonary disease, unspecified COPD type J44.9 [facility] [id number] [place] [address] 29709- 7921 September, Migraine without aura and without status migrainosus, not intractable G43.009 [facility] [id number] [place] [address] 24840- 6081 September, [facility] [id number] [place] [address] 31854- 5623 September, [facility] [address] [place] [address]- 1184 September, [facility] [id number] [place] [address] 39663- 1070 September, Frequent headaches R51 [facility] [id number] [place] [address] 99910- 5663 Aug, [facility] [id number] [place] [address] 01297- 6380 Aug, Breast mass, right N63.10 [facility] [address] 05162- 0254 Aug, Breast lump N63.0 [facility] [id number] [place] [address] 22296- 7257 Aug, [facility] [id number] [place] [address] 51570- 1163 Aug, Bipolar affective disorder, remission status unspecified F31.9 and Diabetes E11.9 [facility] [id number] [place] [address] 00577- 6034 Aug, Diabetes E11.9 ; Schizoaffective disorder, bipolar type F25.0 ; Pharyngitis due to other organism J02.8 ; Panlobular emphysema J43.1 and Irritable bowel syndrome with both constipation and diarrhea K58.2 [facility] [id number] [place] [address] 36127- 2582 Aug, Abnormal mammogram R92.8 [facility] [id number] [place] [address] 76392- 0941 Aug, [facility] [id number] [place] [address] 33725- 5284 Aug, Bipolar 1 disorder, depressed, moderate F31.32 ; Panic disorder with agoraphobia F40.01 and Chronic post-traumatic stress disorder ( PTSD) F43.12 [facility] [id number] [place] [address] 57513- 4515 Aug, [facility] [address] 22300- 0356 Aug, [facility] [address] [place] [address]- 7395 Aug, [facility] [id number] [place] [address] 057520- 1266 Jul, [facility] [id number] [place] [address] 03084- 7923 Jul, Mild persistent asthma without complication J45.30 [facility] [id number] [place] [address] 86918- 1423 19 Jul, 2017 Mild persistent asthma without complication J45.30 [facility] [id number] [place] [address] 58332- 2676 15 Jul, 2017 Bipolar affective disorder, remission status unspecified F31.9 ; Diabetes E11.9 and Irritable bowel syndrome with constipation K58.1 [facility] [id number] [place] [address] 18817- 2501 Jul, [facility] [id number] [place] [address] 88748- 1514 Jul, [facility] [id number] [place] [address] 82836- 4829 Jul, Frequent headaches R51 [facility] [id number] [place] [address] 62796- 5750 Jul, [facility] [address] [place] [address]- 2714 Jul, [facility] [id number] [place] [address] 37909- 7419 Jul, [facility] [id number] [place] [address] 78101- 4618 Jul, Frequent headaches R51 ; Fibrocystic disease of left breast N60.12 ; Fibrocystic disease of right breast N60.11 and Diabetes E11.9 [facility] [id number] [place] [address] 76135- 7159 Jul, [facility] [id number] [place] [address] 70410- 7553 Jul, [facility] [address] 84937- 5222 Jun, Exudative tonsillitis J03.90 [facility] [address] 64794- 6248 Jun, [facility] [address] 86673- 3684 Jun, [facility] [address] 39470- 1579 15 Jun, 2017 Mild persistent asthma without complication J45.30 ; Chronic obstructive pulmonary disease, unspecified COPD type J44.9 and Exudative tonsillitis J03.90 [facility] [address] 35021- 9741 13 Jun, 2017 Encounter for immunization Z23 [facility] [id number] [place] [address] 36534- 1877 Jun, [facility] [address] 78648- 3779 Jun, [facility] [id number] [place] [address] 67103- 7246 Jun, [facility] [id number] [place] [address] 33226 -9606 Jun, Tonsillitis J03.90 [facility] [id number] [place] [address] 50040- 0819 Jun, [facility] [id number] [place] [address] 19109- 4294 Jun, Acute non-recurrent maxillary sinusitis J01.00 [facility] [id number] [place] [address] 65575- 9094 Jun, [facility] [id number] [place] [address] 86280- 0614 May, [facility] [id number] [place] [address] 02037- 2739 May, [facility] [id number] [place] [address] 65572- 2953 May, GERD (gastroesophageal reflux disease) K21.9 [facility] [address] 11511- 0604 May, Migraine without aura and without status migrainosus, not intractable G43.009 [facility] [id number] [place] [address] 12640- 9883 May, [facility] [id number] [place] [address] 70342- 3780 May, [facility] [address] 63629- 5418 May, Panlobular emphysema J43.1 and Acute non-recurrent maxillary sinusitis J01.00 [facility] [id number] [place] [address] 81061- 0141 May, Bipolar 1 disorder, depressed, moderate F31.32 ; Panic disorder with agoraphobia F40.01 and Akathisia G25.71 [facility] [id number] [place] [address] 95984- 4565 Apr, [facility] [id number] [place] [address] 68493- 5242 Apr, [facility] [id number] [place] [address] 15821- 5751 Apr, Acute non-recurrent maxillary sinusitis J01.00 [facility] [id number] [place] [address] 79852- 1743 Apr, Panlobular emphysema J43.1 [place] [id number] [place] [address] 14566- 6231 Apr, [facility] [id number] [place] [address] 42613 -0314 Apr, Sore throat J02.9 and Exudative tonsillitis J03.90 [facility] [address] 14872- 7131 Mar, [facility] [address] 55076- 7977 Mar, Acute non-recurrent maxillary sinusitis J01.00 [place] [address] 03598- 6120 Mar, [facility] [id number] [place] [address] 28124- 4907 Mar, Panlobular emphysema J43.1 and Diabetes E11.9 [facility] [address] 69005- 5926 Mar, [facility] [id number] [place] [address] 52695 -1351 Feb, Wheezing R06.2 and Acute recurrent pansinusitis J01.41 [facility] [id number] [place] [address] 31792- 1062 Feb, [facility] [address] 08487- 0369 Feb, Acute non-recurrent maxillary sinusitis J01.00 [facility] [id number] [place] [address] 56322- 8230 Feb, Chronic obstructive pulmonary disease, unspecified J44.9 [facility] [address] 93566- 3025 Feb, Hypoxemia R09.02 and Chronic obstructive pulmonary disease, unspecified J44.9 [facility] [address] 24188- 5529 Jan, Bipolar 1 disorder, depressed, moderate F31.32 ; Panic disorder with agoraphobia F40.01 ; Chronic post-traumatic stress disorder (PTSD ) F43.12 ; Diabetes E11.9 and Moderate persistent asthma without complication J45.40 [facility] [id number] [place] [address] 10270- 7746 22 Jan, 2017 [facility] [id number] [place] [address] 82293 2546 Jan, Acute non-recurrent maxillary sinusitis J01.00 [facility] [id number] [place] [address] 06124- 9206 18 Jan, 2017 [facility] [id number] [place] [address] 92149- 1555 Jan, [facility] [id number] [place] [address] 73424 2548 Jan, Moderate persistent asthma without complication J45.40 and Hypoxemia R09.02 [facility] [id number] [place] [address] 54608 2541 Jan, Moderate persistent asthma without complication J45.40 and Hypoxemia R09.02 [facility] [id number] [place] [address] 71091 2545 Jan, [facility] [id number] [place] [address] 76798- 0813 Dec, Acute non-recurrent maxillary sinusitis J01.00 [facility] [id number] [place] [address] 16828- 254 Dec, Chronic obstructive pulmonary disease, unspecified J44.9 [facility] [address] 19851- 0846 Dec, [facility] [id number] [place] [address] 17551- 2546 Dec, Mild persistent asthma without complication J45.30 and Other chronic pain G89.29 [facility] [address] [address]- 5453 Nov, [facility] [id number] [place] [address] 83700- 4309 Nov, Acute non-recurrent maxillary sinusitis J01.00 [facility] [id number] [place] [address] 57184- 7675 Nov, [facility] [id number] [place] [address] 01444- 7801 Nov, [facility] [id number] [place] [address] 11708- 8235 Oct, [facility] [id number] [place] [address] 61517- 0147 Oct, Bipolar 1 disorder, depressed, partial remission F31.75 ; Panic disorder with agoraphobia F40.01 and Chronic post-traumatic stress disorder (PTSD) F43.12 [facility] [id number] [place] [address] 48642- 1469 Oct, Acute non-recurrent maxillary sinusitis J01.00 [facility] [id number] [place] [address] 89986- 7424 Oct, [facility] [id number] [place] [address] 29658- 5043 Oct, Diabetes E11.9 [facility] [id number] [place] [address] 22873- 9730 September, Diabetes E11.9 [facility] [id number] [place] [address] 57036- 8474 September, Diabetes E11.9 and Sinus tachycardia R00.0 [facility] [id number] [place] [address] 73406- 1581 September, [facility] [id number] [place] [address] 55634- 3725 September, [facility] [id number] [place] [address] 85296- 0965 Aug, Diabetes E11.9 and Lumbago with sciatica, right side M54.41 [facility] [id number] [place] [address] 93143- 0316 Aug, [facility] [id number] [place] [address] 66034- 6659 Jul, Bipolar 1 disorder, depressed, moderate F31.32 ; Panic disorder with agoraphobia F40.01 and Chronic post-traumatic stress disorder ( PTSD) F43.12 [facility] [id number] [place] [address] 27224- 1489 Jul, Sore throat J02.9 [facility] [id number] [place] [address] 74875- 6277 Jul, [facility] [id number] [place] [address] 28562- 4943 Jul, [facility] [id number] [place] [address] 39633- 1555 Jul, [facility] [id number] [place] [address] 19476- 5674 Jul, [facility] [id number] [place] [address] 48516- 7920 Jul, Sore throat J02.9 and Pharyngitis, unspecified etiology J02.9 [facility] [id number] [place] [address] 92130- 5852 Jun, [facility] [id number] [place] [address] 64488- 6674 Jun, Diabetes E11.9 [facility] [id number] [place] [address] 59910- 6169 Jun, [facility] [id number] [place] [address] 81007- 3670 Jun, [facility] [id number] [address]- 7272 16 Jun, 2016 [facility] [address] [place] [address]- 2817 Jun, [facility] [id number] [place] [address] 72928- 4435 Jun, [facility] [id number] [place] [address] 29351- 9258 Jun, [facility] [id number] [place] [address] 13475- 9840 Jun, [facility] [id number] [place] [address] 95138- 6675 Jun, [facility] [id number] [place] [address] 91392- 4972 May, Diabetes E11.9 ; Bipolar I disorder with depression F31.9 ; Other chronic pain G89.29 ; Acute recurrent maxillary sinusitis J01.01 and Anxiety disorder, unspecified F41.9 [facility] [address] [place] [address]- 4408 May, [facility] [id number] [place] [address] 75856- 4934 May, Diabetes E11.9 ; Bipolar I disorder with depression F31.9 ; Anxiety disorder, unspecified F41.9 ; Other chronic pain G89.29 and Acute recurrent maxillary sinusitis J01.01 [facility] [address] [place] [address]- 7026 May, [facility] [id number] [place] [address] 50825- 1173 May, Attention deficit hyperactivity disorder (ADHD), predominantly inattentive type F90.0 [facility] [address] [place] [address]- 8078 May, [facility] [id number] [place] [address] 16272- 8799 Apr, Attention deficit hyperactivity disorder (ADHD), predominantly inattentive type F90.0 and Non-seasonal allergic rhinitis due to other allergic trigger J30.89 [facility] [id number] [place] [address] 45171- 1443 Apr, Bipolar 1 disorder, depressed, moderate F31.32 ; Panic disorder with agoraphobia F40.01 and Chronic post-traumatic stress disorder ( PTSD) F43.12 [place] [id number] [place] [address] 19414- 9601 Apr, Dental examination Z01.20 [facility] [address] 41600- 6054 Mar, [facility] [address] 30795- 7115 Mar, [place] [facility] [address] 05635- 9730 Mar, Bipolar I disorder with depression F31.9 and Anxiety disorder, unspecified F41.9 [place] [id number] [place] [address] 90884- 4014 Mar, Panic disorder with agoraphobia F40.01 ; Bipolar 1 disorder , depressed, moderate F31.32 and Chronic post-traumatic stress disorder (PTSD) F43.12 [place] [id number] [place] [address] 44746- 0915 Mar, [place] [facility] [id number] [place] [address] 23459- 4255 Mar, Dental caries K02.9 [place] [id number] [place] [address] 15687- 7586 Feb, Lumbago with sciatica, left side M54.42 ; Lumbago with sciatica, right side M54.41 and Other chronic pain G89.29 [place] [address] 60024- 5743 Feb, [facility] [id number] [place] [address] 71907- 6635 14 Feb, 2016 [facility] [id number] [place] [address] 44741- 3583 Feb, Bipolar I disorder with depression F31.9 ; PTSD (post- traumatic stress disorder) F43.10 and Mood disorder F39 [facility] [address] 93788- 4283 Feb, [facility] [id number] [place] [address] 14245- 8586 11 Feb, 2016 Dental examination Z01.20 [place] [id number] [place] [address] 57609- 4409 07 Feb, 2016 [facility] [id number] [place] [address] 02369 -0802 Feb, Acute bronchitis, unspecified organism J20.9 [facility] [id number] [place] [address] 71617- 7544 26 Jan, 2016 Mood disorder F39 ; Migraine without aura and without status migrainosus, not intractable G43.009 ; Irritable bowel syndrome, unspecified type K58.9 ; Diabetes E11.9 and Encounter for immunization Z23 [facility] [id number] [place] [address] [phone] 15 Jan, 2016 [facility] [id number] [place] [address] [phone] 06 Jan, 2016 [facility] [id number] [place] [address] [phone] Jan, [facility] [id number] [place] [address] [phone] Jan, [facility] [id number] [place] [address] [phone] Jan, [facility] [id number] [place] [address] [phone] Dec, Bipolar I disorder with depression F31.9 ; PTSD (post- traumatic stress disorder) F43.10 and Panic disorder with agoraphobia F40.01 [facility] [id number] [place] [address] [phone] Dec, Chronic obstructive pulmonary disease, unspecified COPD type J44.9 ; Tremor R25.1 and Anxiety F41.9 [facility] [id number] [place] [address] [phone] Dec, [facility] [address] [id number] [place] [address] 33032- 8491 Nov, Tremors of nervous system R25.1 and Cramping of feet R25.2 [place] [id number] [place] [address] 74608- 3723 Nov, [place] [id number] [place] [address] 05747- 4925 Nov, [facility] [id number] [place] [address] 87936- 3081 Oct, Chronic obstructive pulmonary disease, unspecified J44.9 [facility] [id number] [place] [address] 48347- 8083 Oct, [facility] [id number] [place] [address] 98026- 6953 Oct, Tremor R25.1 [facility] [id number] [place] [address] 64762- 5521 Oct, Bipolar I disorder with depression F31.9 ; Diabetes E11.9 ; PTSD (post-traumatic stress disorder) F43.10 and Panic disorder with agoraphobia F40.01 [facility] [id number] [place] [address] 23346- 0183 Oct, Mood disorder F39 [facility] [id number] [place] [address] 79097- 6091 September, [place] [id number] [place] [address] 12498- 8327 September, Diabetes E11.9 ; Bipolar I disorder with depression F31.9 ; PTSD (post-traumatic stress disorder) F43.10 and Panic disorder with agoraphobia F40.01 [place] [id number] [place] [address] 05787- 6715 September, Mood disorder F39 ; Schizoaffective disorder, unspecified type F25.9 ; Arthritis M19.90 ; Tremor R25.1 ; Acute non-recurrent frontal sinusitis J01.10 and Blood in stool K92.1 [place] [address] 72552- 6491 September, [place] [id number] [place] [address] 88997- 4318 September, Chronic obstructive pulmonary disease, unspecified J44.9 [place] [address] 14720- 6346 September, Diabetes E11.9 [place] [address] 02871- 2453 Aug, Other bipolar disorder F31.89 and Anxiety disorder, unspecified F41.9 [place] [id number] [place] [address] 52075- 7890 Aug, [place] [address] 56844- 2875 Aug, Diabetes E11.9 [place] [id number] [place] [address] 08064- 4656 Aug, [place] [address] 36717- 6381 14 Aug, 2015 Diabetes E11.9 ; Fatigue R53.83 and Dizziness R42 [place] [id number] [place] [address] 93669- 7502 Aug, Other bipolar disorder F31.89 [place] [address] [id number] [address] 0296 Aug, Generalized anxiety disorder F41.1 [facility] [id number] [place] [address], [place] [address]- 4716 Aug, Other bipolar disorder F31.89 and Anxiety disorder, unspecified F41.9 [facility] [id number] [place] [address] 48328- 5826 Aug, [facility] [address] [facility] [id number] [place] [address] 36493- 5239 Jul, [facility] [id number] [place] [address] 46527- 1626 Jul, [facility] [id number] [place] [address] 53640- 2006 Jul, Bronchitis J40 [facility] [id number] [place] [address] 07560- 0536 Jul, Anxiety disorder F41.9 [facility] [id number] [place] [address] 49095- 0234 Jul, Other bipolar disorder F31.89 and Anxiety disorder, unspecified F41.9 [facility] [address] [address]- 9534 Jul, Other bipolar disorder F31.89 and Fibromyalgia M79.7 [facility] [address] [address] 2176 Jul, [facility] [address] [facility] [id number] [address] 254 Jul, [facility] [address] [address]- 5026 Jul, [facility] [id number] [address]- 2546 Jul, Other bipolar disorder F31.89 and Anxiety disorder, unspecified F41.9 [facility] [id number] [place] [address] 77107- 0900 Jun, GERD (gastroesophageal reflux disease) K21.9 [facility] [id number] [place] [address] 16117- 1332 Jun, [facility] [id number] [place] [address] 36856- 6759 May, [facility] [address] 57062- 8666 May, Diabetes E11.9 ; Back pain M54.9 ; GERD (gastroesophageal reflux disease) K21.9 ; Hypertension I10 and Peripheral neuropathy G62.9 [facility] [id number] [place] [address] 84149- 8527 Mar, [facility] [address] 73052- 1680 Mar, [facility] [address] 65449- 7238 Mar, Acute sinusitis J01.90 and Otitis media, left H66.92 [facility] [id number] [place] [address] 68804- 6499 Feb, [facility] [id number] [place] [address] 54272- 1626 Feb, [facility] [id number] [place] [address] 69101- 5009 Feb, [facility] [id number] [place] [address] 87137- 2965 Feb, [facility] [id number] [place] [address] 53014- 0964 29 Jan, 2015 [facility] [id number] [place] [address] 92645- 9222 24 Jan, 2015 Diabetes 250.00 and Back pain 724.5 [facility] [address] 42746- 0022 Jan, [facility] [id number] [place] [address] 00461- 5404 Dec, Diabetes 250.00 ; Benign essential hypertension 401.1 and Allergic rhinitis 477.9 [facility] [id number] [place] [address] 19406- 0982 Dec, [facility] [address] 41475- 3651 Dec, [facility] [id number] [place] [address] 21007- 3034 Dec, Psychosis 298.9 [facility] [address] 69942- 5004 Dec, Medication side effect 995.20 and Generalized anxiety disorder 300.02 [facility] [id number] [place] [address] 17721- 8719 Dec, Acquired cognitive dysfunction 294.9 [facility] [id number] [place] [address] 98577- 0973 Dec, [facility] [id number] [place] [address] 72284- 1032 Dec, Unspecified myalgia and myositis 729.1 and Generalized anxiety disorder 300.02 [facility] [id number] [place] [address] 50848- 6945 Nov, [facility] [id number] [place] [address] 61908- 6263 Nov, [facility] [id number] [place] [address] 23677- 3616 Nov, [facility] [id number] [place] [address] 09122- 7111 Nov, Upper respiratory infection 465.9 and Chronic airway obstruction, not elsewhere classified 496 [facility] [id number] [place] [address] 41782- 1538 Nov, Hyponatremia 276.1 [facility] [address] [address]- 9375 Oct, [facility] [address] [address]- 3812 Oct, [facility] [address], [place] [address]- 6653 Oct, [facility] [id number] [place] [address] 81809- 3623 Oct, [facility] [id number] [place] [address] 37883- 0933 Oct, Hyponatremia 276.1 [facility] [id number] [place] [address] 33591- 7305 Oct, [facility] [id number] [place] [address] 74512- 3570 Oct, [facility] [address] [address]- 8777 Oct, Generalized anxiety disorder 300.02 [facility] [id number] [place] [address] 267885- 6590 Oct, Generalized anxiety disorder 300.02 and Diabetes 250.00 [facility] [address] [address]- 9701 Aug, [facility] [address] [address]- 7152 Aug, [facility] [address] 8373 Jul, [facility] [id number] 3690 Jul, [facility] [address] 7009 Jun, [facility] [id number] [place] [address] 78597- 1099 Jun, [facility] [address] [id number] [place] [address]- 1246 Jun, [facility] [place] [facility] [address] [id number] [place] [address]- 6566 Jun, [facility] [place] [facility] [address] [facility] [id number] [place] [address]- 4326 Jun, [facility] [place] [facility] [address] [id number] [place] [address]- 7428 May, [facility] [place] [facility] [address] [id number] [place] [address]- 0407 May, [facility] [place] [facility] [address] [facility] [id number] [place] [address]- 6918 Apr, [facility] [address] [facility] [id number] [place] [address]- 1311 Apr, [facility] [place] [facility] [address] [facility] [id number] [place] [address]- 4036 Apr, [facility] [place] [facility] [address] [facility] [id number] [place] [address]- 4869 Apr, [facility] [place] [facility] [address] [facility] [id number] [place] [address]- 3683 Apr, [facility] [place] [facility] [address] [facility] [id number] [place] [address]- 5012 Apr, [facility] [place] [facility] [address] [facility] [id number] [place] [address] 2544 Apr, [facility] [place] [facility] [address] [facility] [id number] [place] [address]- 3403 Apr, [facility] [place] [facility] [address] [facility] [id number] [place] [address]- 2024 Feb, [facility] [place] [facility] [address] [facility] [id number] [place] [address]- 8995 Feb, [facility] [place] [facility] [address] [id number] [place] [address]- 7543 Jan, [facility] [address] [id number] [place] [address]- 3926 Jan, [facility] [place] [facility] [address] [id number] [place] [address]- 2546 Dec, [facility] [place] [facility] [address] [id number] [place] [address]- 1116 Dec, [facility] [place] [facility] [address] [id number] [place] [address]- 0693 Dec, [facility] [place] [facility] [address] [id number] [place] [address]- 2431 Nov, [facility] [address] [id number] [place] [address]- 7936 Nov, [facility] [address] [id number] [place] [address]- 5308 Nov, [facility] [address] [id number] [place] [address]- 0139 Oct, [facility] [place] [facility] [address] [id number] [place] [address]- 2368 Oct, [facility] [place] [facility] [address] [id number] [place] [address]- 5738 Oct, [facility] [place] [facility] [address] [id number] [place] [address]- 6500 September, [facility] [place] [facility] [address] [id number] [place] [address]- 7165 September, [facility] [place] [facility] [address] [id number] [place] [address]- 1248 September, [facility] [place] [facility] [address] [id number] [place] [address]- 9870 Aug, [facility] [place] [facility] [address] [id number] [place] [address]- 6458 20 Aug, 2011 [facility] [address] [id number] [place] [address]- 9557 19 Aug, 2011 [facility] [place] [facility] [address] [id number] [place] [address]- 5176 16 Aug, 2011 [facility] [address] [id number] [place] [address]- 8669 Jul, [facility] [address] [id number] [place] [address]- 1085 Jun, [facility] [place] [facility] [address] [id number] [place] [address]- 2942 14 Jun, 2011 [facility] [place] [facility] [address] [id number] [place] [address]- 3082 13 Jun, 2011 [facility] [address] [id number] [place] [address]- 6815 07 Jun, 2011 [facility] [address] [id number] [place] [address]- 2423 03 Jun, 2011 [facility] [address] [facility] [id number] [place] [address]- 4328 May, [facility] [address] [facility] [id number] [place] [address]- 9074 May, [facility] [address] [id number] [place] [address]- 2568 May, [facility] [place] [facility] [address] [id number] [place] [address]- 6022 May, [facility] [place] [facility] [address] [id number] [place] [address]- 8737 20 Apr, 2011 [facility] [place] [facility] [address] [id number] [place] [address]- 7318 13 Apr, 2011 [facility] [place] [facility] [address] [facility] [id number] [place] [address]- 6750 05 Apr, 2011 [facility] [place] [facility] [address] [id number] [place] [address]- 3060 Mar, [facility] [place] [facility] [address] [id number] [place] [address]- 2978 Mar, [facility] [place] [facility] [address] [id number] [place] [address]- 2546 Mar, [facility] [place] [facility] [address] [id number] [place] [address]- 4222 13 Feb, 2011 [facility] [place] [facility] [address] [id number] [place] [address]- 7114 Feb, [facility] [place] [facility] [address] [id number] [place] [address]- 8106 Feb, [facility] [place] [facility] [address] [id number] [place] [address]- 1559 Nov, [facility] [place] [facility] [address] [id number] [place] [address]- 0987 September, [facility] [place] [facility] [address] [id number] [place] [address]- 8309 Aug, [facility] [place] [facility] [address] [id number] [place] [address]- 1126 14 Jul, 2010 [facility] [place] [facility] [address] [id number] [place] [address]- 4030 May, [facility] [place] [facility] [address] [id number] [place] [address]- 1476 Apr, [facility] [place] [facility] [address] [id number] [place] [address]- 9276 30 Apr, 2010 [facility] [place] [facility] [address] [id number] [place] [address]- 3686 Apr, [facility] [place] [facility] [address] [id number] [place] [address]- 2546 Apr, [facility] [place] [facility] [address] [id number] [place] [address]- 7496 Apr, IMMUNIZATIONS No Known Immunizations SOCIAL HISTORY Never Assessed REASON FOR VISIT adderall 06/22/2017 PLAN OF CARE VITAL SIGNS MEDICATIONS Medication Instructions Dosage Frequency Start Date End Date Duration Status Adderall XR 20 mg Orally Once a day for depression 1 capsule in the morning Jun, 28 days Active RESULTS No Results PROCEDURES [...]
--- OUTSIDE RECORDS SUMMARY | 2017-11-18 07:07 | XMS REPORT ---
Author Author WHIT GANDHI [facility] Address [address] [place] [address] Care Team Providers Care Acid Wash Operator Name Role Phone WHIT GANDHI Unavailable PROBLEMS Type Condition ICD9-CM Code ETS21-IG Code Onset Dates Condition Status SNOMED Code Problem Back pain M54.9 Active 827633463 Problem Diabetes E11.9 Active 27675997 Problem GERD (gastroesophageal reflux disease) K21.9 Active 630464147 Problem Hypertension I10 Active 49404470 Problem Anxiety disorder, unspecified F41.9 Active 653222249 Problem Other bipolar disorder F31.89 Active 13636614 Problem Fibromyalgia M79.7 Active 40136870 Problem Panic disorder with agoraphobia F40.01 Active 67560585 Problem Panlobular emphysema J43.1 Active 0618828 Problem Chronic obstructive pulmonary disease, unspecified J44.9 Active 52879594 Problem Akathisia G25.71 Active 642099870 Problem Lumbago with sciatica, left side M54.42 Active 444378420 Problem Migraine without aura and without status migrainosus, not intractable G43.009 Active 537114992 Problem Fibrocystic disease of right breast N60.11 Active 44887327 Problem Fibrocystic disease of left breast N60.12 Active 78616390 Problem Slow transit constipation K59.01 Active 33810766 Problem Essential tremor G25.0 Active 299370848 Problem Bipolar 1 disorder, depressed, moderate F31.32 Active 50543312 Problem Other chronic pain G89.29 Active 05511724 Problem Lumbago with sciatica, right side M54.41 Active 732721398 Problem Irritable bowel syndrome with constipation K58.1 Active 542551104 Problem Arthritis M19.90 Active 4308267 Problem Schizoaffective disorder, bipolar type F25.0 Active 39752998 Problem Irritable bowel syndrome with both constipation and diarrhea K58.2 Active 53121702 Problem Attention deficit hyperactivity disorder (ADHD), predominantly inattentive type F90.0 Active 32778962 Problem Bipolar I disorder with depression F31.9 Active 57269086 Problem Chronic post-traumatic stress disorder (PTSD) F43.12 Active 066554216 Problem Bipolar affective disorder, remission status unspecified F31.9 Active 70196066 Problem Mild persistent asthma without complication J45.30 Active 241544976 Problem Moderate persistent asthma without complication J45.40 Active 943089416 Problem Acute non-recurrent maxillary sinusitis J01.00 Active 48627929 Problem Bipolar 1 disorder, depressed, partial remission F31.75 Active 25214348 ALLERGIES No Information ENCOUNTERS Encounter Location Date Diagnosis [facility] [id number] [place] [address] 11448- 5731 Nov, [facility] [address] 00080- 6377 Nov, [facility] [address] 66362- 6406 Nov, [facility] [address] 60923- 3605 Oct, [facility] [id number] [place] [address] 81808- 0656 Oct, [facility] [id number] [place] [address] 08113- 7285 Oct, Type 2 diabetes mellitus with diabetic neuropathy, unspecified whether jail insulin use E11.40 ; Diabetes E11.9 ; Slow transit constipation K59.01 ; Edema of both legs R60.0 and Dysfunction of right eustachian tube H69.81 [facility] [id number] [place] [address] 94045- 6529 Oct, Frequent headaches R51 [facility] [address] 89481- 5285 Oct, [facility] [id number] [place] [address] 15352- 4181 Oct, [facility] [address] 38725- 9710 Oct, [facility] [address] [address]- 7999 Oct, [facility] [id number] [place] [address] 98684- 8098 Oct, [facility] [address] [place] [address]- 1786 Oct, [facility] [id number] [place] [address] 49211- 6258 Oct, [facility] [id number] [place] [address] 60260- 1403 Oct, [facility] [id number] [place] [address] 22117- 7892 September, Frequent headaches R51 [facility] [id number] [place] [address] 06267- 1154 September, Bilateral otitis media with effusion H65.93 ; Dizziness R42 and Essential tremor G25.0 [facility] [id number] [place] [address] 68451- 8403 September, Chronic obstructive pulmonary disease, unspecified COPD type J44.9 [facility] [id number] [address]- 8323 September, Chronic obstructive pulmonary disease, unspecified COPD type J44.9 [facility] [address], [place] [address]- 8252 September, Migraine without aura and without status migrainosus, not intractable G43.009 [facility] [address], [place] [address]- 8773 September, [facility] [id number] [place] [address] 08780- 5671 September, [facility] [address], [place] [address]- 8928 September, [facility] [id number] [place] [address] 55932- 3592 September, Frequent headaches R51 [facility] [id number] [place] [address] 68169- 1261 Aug, [facility] [id number] [place] [address] 76671- 2217 Aug, Breast mass, right N63.10 [facility] [address] 45114- 1038 Aug, Breast lump N63.0 [facility] [address] 27229- 3640 Aug, [facility] [address] 54833- 4628 Aug, Bipolar affective disorder, remission status unspecified F31.9 and Diabetes E11.9 [facility] [id number] [place] [address] 13749- 8419 Aug, Diabetes E11.9 ; Schizoaffective disorder, bipolar type F25.0 ; Pharyngitis due to other organism J02.8 ; Panlobular emphysema J43.1 and Irritable bowel syndrome with both constipation and diarrhea K58.2 [facility] [id number] [place] [address] 14983- 5597 Aug, Abnormal mammogram R92.8 [facility] [id number] [place] [address] 40690- 8750 Aug, [facility] [id number] [place] [address] 17730- 2625 Aug, Bipolar 1 disorder, depressed, moderate F31.32 ; Panic disorder with agoraphobia F40.01 and Chronic post-traumatic stress disorder ( PTSD) F43.12 [facility] [id number] [place] [address] 55934- 2069 Aug, [facility] [id number] [place] [address] 01355- 2437 Aug, [facility] [id number] [place] [address] 37685- 3716 Aug, [facility] [id number] [place] [address] 16745088- 2694 Jul, [facility] [id number] [place] [address] 48995- 6171 20 Jul, 2017 Mild persistent asthma without complication J45.30 [facility] [id number] [place] [address] 52937- 4208 19 Jul, 2017 Mild persistent asthma without complication J45.30 [facility] [id number] [place] [address] 363825- 2261 15 Jul, 2017 Bipolar affective disorder, remission status unspecified F31.9 ; Diabetes E11.9 and Irritable bowel syndrome with constipation K58.1 [facility] [id number] [place] [address] 60348- 5892 Jul, [facility] [id number] [place] [address] 87823- 8239 Jul, [facility] [id number] [place] [address] 37131- 5468 Jul, Frequent headaches R51 [facility] [id number] [place] [address] 32877- 3236 Jul, [facility] [id number] [place] [address] 27897- 3578 Jul, [facility] [id number] [place] [address] 39050- 5405 Jul, [facility] [id number] [place] [address] 52332045- 2267 Jul, Frequent headaches R51 ; Fibrocystic disease of left breast N60.12 ; Fibrocystic disease of right breast N60.11 and Diabetes E11.9 [facility] [id number] [place] [address] 85603- 1783 Jul, [facility] [id number] [place] [address] 90162- 3618 Jul, [facility] [id number] [place] [address] 88392- 3632 Jun, Exudative tonsillitis J03.90 [facility] [id number] [place] [address] 42860- 0134 Jun, [facility] [id number] [place] [address] 71072- 5319 Jun, [facility] [id number] [place] [address] 99634- 1045 15 Jun, 2017 Mild persistent asthma without complication J45.30 ; Chronic obstructive pulmonary disease, unspecified COPD type J44.9 and Exudative tonsillitis J03.90 [facility] [id number] [place] [address] 79478- 6672 13 Jun, 2017 Encounter for immunization Z23 [facility] [id number] [place] [address] 32367- 6669 Jun, [facility] [id number] [place] [address] 25561- 3682 Jun, [facility] [id number] [place] [address] 55507- 5345 Jun, [facility] [id number] [place] [address] 34387 -8064 Jun, Tonsillitis J03.90 [facility] [id number] [place] [address] 53117- 2892 Jun, [facility] [id number] [place] [address] 60240- 1195 Jun, Acute non-recurrent maxillary sinusitis J01.00 [facility] [id number] [place] [address] 33078- 8833 Jun, [facility] [id number] [place] [address] 35352- 9302 May, [facility] [address] 12562- 9576 May, [facility] [id number] [place] [address] 55761- 3700 May, GERD (gastroesophageal reflux disease) K21.9 [facility] [address] 73255- 7769 May, Migraine without aura and without status migrainosus, not intractable G43.009 [facility] [address] 22124- 4585 May, [facility] [address] 21351- 8015 May, [facility] [address] 50220- 2473 May, Panlobular emphysema J43.1 and Acute non-recurrent maxillary sinusitis J01.00 [facility] [id number] [place] [address] 31113- 7353 May, Bipolar 1 disorder, depressed, moderate F31.32 ; Panic disorder with agoraphobia F40.01 and Akathisia G25.71 [facility] [id number] [place] [address] 52692- 3077 Apr, [facility] [id number] [place] [address] 84345- 2422 Apr, [facility] [id number] [place] [address] 13724- 6597 Apr, Acute non-recurrent maxillary sinusitis J01.00 [facility] [id number] [place] [address] 21033- 2895 Apr, Panlobular emphysema J43.1 [facility] [address] [place] [address]- 9639 Apr, [facility] [id number] [place] [address] 91601 -9167 Apr, Sore throat J02.9 and Exudative tonsillitis J03.90 [facility] [address] 56426- 5531 Mar, [facility] [address] 45105- 4195 Mar, Acute non-recurrent maxillary sinusitis J01.00 [facility] [address] 43811- 1924 Mar, [facility] [address] 89523- 2611 Mar, Panlobular emphysema J43.1 and Diabetes E11.9 [facility] [address] 06335- 8345 Mar, [facility] [id number] [place] [address] 19527 -1321 Feb, Wheezing R06.2 and Acute recurrent pansinusitis J01.41 [facility] [id number] [place] [address] 19963- 8526 Feb, [facility] [id number] [place] [address] 40565- 4803 Feb, Acute non-recurrent maxillary sinusitis J01.00 [facility] [id number] [place] [address] 57021- 7402 Feb, Chronic obstructive pulmonary disease, unspecified J44.9 [facility] [address] 00927- 4891 Feb, Hypoxemia R09.02 and Chronic obstructive pulmonary disease, unspecified J44.9 [facility] [address] 22964- 3778 Jan, Bipolar 1 disorder, depressed, moderate F31.32 ; Panic disorder with agoraphobia F40.01 ; Chronic post-traumatic stress disorder (PTSD ) F43.12 ; Diabetes E11.9 and Moderate persistent asthma without complication J45.40 [facility] [id number] [place] [address] 54230 2546 22 Jan, 2017 [facility] [address] 57369 2546 19 Jan, 2017 Acute non-recurrent maxillary sinusitis J01.00 [facility] [id number] [place] [address] 05936 2546 18 Jan, 2017 [facility] [address] 87422 2546 Jan, [facility] [address] 60124 2546 Jan, Moderate persistent asthma without complication J45.40 and Hypoxemia R09.02 [facility] [id number] [place] [address] 56119 2546 Jan, Moderate persistent asthma without complication J45.40 and Hypoxemia R09.02 [facility] [id number] [place] [address] 65340 2546 Jan, [facility] [id number] [place] [address] 71460 2546 Dec, Acute non-recurrent maxillary sinusitis J01.00 [facility] [id number] [place] [address] 77913 2546 Dec, Chronic obstructive pulmonary disease, unspecified J44.9 [facility] [address] 41985 2546 Dec, [facility] [address] 04020 2546 Dec, Mild persistent asthma without complication J45.30 and Other chronic pain G89.29 [facility] [address] [place] [address]- 7792 Nov, [facility] [id number] [place] [address] 98561- 4177 Nov, Acute non-recurrent maxillary sinusitis J01.00 [facility] [id number] [place] [address] 32360- 9926 Nov, [facility] [id number] [place] [address] 03883- 6429 Nov, [facility] [id number] [place] [address] 35202- 9729 Oct, [facility] [id number] [place] [address] 31296- 9639 Oct, Bipolar 1 disorder, depressed, partial remission F31.75 ; Panic disorder with agoraphobia F40.01 and Chronic post-traumatic stress disorder (PTSD) F43.12 [facility] [id number] [place] [address] 44006- 5632 Oct, Acute non-recurrent maxillary sinusitis J01.00 [facility] [id number] [place] [address] 35196- 9830 Oct, [facility] [id number] [place] [address] 13517- 2343 Oct, Diabetes E11.9 [facility] [id number] [place] [address] 33934- 2510 September, Diabetes E11.9 [facility] [id number] [place] [address] 00025- 1714 September, Diabetes E11.9 and Sinus tachycardia R00.0 [facility] [id number] [place] [address] 92550- 7413 September, [facility] [id number] [place] [address] 84047- 7896 September, [facility] [id number] [place] [address] 28663- 4380 Aug, Diabetes E11.9 and Lumbago with sciatica, right side M54.41 [facility] [id number] [place] [address] 05878- 5718 Aug, [facility] [id number] [place] [address] 86559- 0627 Jul, Bipolar 1 disorder, depressed, moderate F31.32 ; Panic disorder with agoraphobia F40.01 and Chronic post-traumatic stress disorder ( PTSD) F43.12 [facility] [id number] [place] [address] 92722- 4144 Jul, Sore throat J02.9 [facility] [id number] [place] [address] 48252- 0600 Jul, [facility] [id number] [place] [address] 75729- 6674 Jul, [facility] [id number] [place] [address] 22812- 1957 Jul, [facility] [id number] [place] [address] 73299- 8392 Jul, [facility] [id number] [place] [address] 49694- 7769 Jul, Sore throat J02.9 and Pharyngitis, unspecified etiology J02.9 [facility] [address], [place] [address]- 2878 Jun, [facility] [address], [place] [address]- 2782 Jun, Diabetes E11.9 [facility] [id number] [place] [address] 51971- 2466 Jun, [facility] [id number] [place] [address] 36116- 4064 Jun, [facility] [id number] [address]- 3956 16 Jun, 2016 [facility] [address] [address]- 2609 Jun, [facility] [address], [place] [address]- 2687 Jun, [facility] [id number] [place] [address] 07839- 3293 Jun, [facility] [id number] [place] [address] 58067- 3026 Jun, [facility] [id number] [place] [address] 40200- 9724 Jun, [facility] [id number] [place] [address] 60722- 4240 May, Diabetes E11.9 ; Bipolar I disorder with depression F31.9 ; Other chronic pain G89.29 ; Acute recurrent maxillary sinusitis J01.01 and Anxiety disorder, unspecified F41.9 [facility] [address] [address]- 4791 May, [facility] [id number] [place] [address] 11387- 3566 May, Diabetes E11.9 ; Bipolar I disorder with depression F31.9 ; Anxiety disorder, unspecified F41.9 ; Other chronic pain G89.29 and Acute recurrent maxillary sinusitis J01.01 [facility] [address], [place] [address]- 7369 May, [facility] [id number] [place] [address] 18103- 7919 May, Attention deficit hyperactivity disorder (ADHD), predominantly inattentive type F90.0 [facility] [address], [place] [address]- 6998 May, [facility] [id number] [place] [address] 84374- 2531 Apr, Attention deficit hyperactivity disorder (ADHD), predominantly inattentive type F90.0 and Non-seasonal allergic rhinitis due to other allergic trigger J30.89 [facility] [id number] [place] [address] 12626- 4617 Apr, Bipolar 1 disorder, depressed, moderate F31.32 ; Panic disorder with agoraphobia F40.01 and Chronic post-traumatic stress disorder ( PTSD) F43.12 [facility] [id number] [place] [address] 54690- 1842 Apr, Dental examination Z01.20 [facility] [id number] [place] [address] 80194- 1458 Mar, [facility] [id number] [place] [address] 02447- 1585 Mar, [facility] [id number] [place] [address] 48988- 5281 Mar, Bipolar I disorder with depression F31.9 and Anxiety disorder, unspecified F41.9 [facility] [id number] [place] [address] 45804- 1008 Mar, Panic disorder with agoraphobia F40.01 ; Bipolar 1 disorder , depressed, moderate F31.32 and Chronic post-traumatic stress disorder (PTSD) F43.12 [facility] [id number] [place] [address] 23785- 3990 Mar, [facility] [id number] [place] [address] 30349- 8633 Mar, Dental caries K02.9 [facility] [id number] [place] [address] 58534- 1958 Feb, Lumbago with sciatica, left side M54.42 ; Lumbago with sciatica, right side M54.41 and Other chronic pain G89.29 [facility] [id number] [place] [address] 44984- 8300 Feb, [facility] [id number] [place] [address] 98135- 5439 14 Feb, 2016 [facility] [id number] [place] [address] 42625- 4128 Feb, Bipolar I disorder with depression F31.9 ; PTSD (post- traumatic stress disorder) F43.10 and Mood disorder F39 [facility] [address] 14277- 8685 Feb, [facility] [id number] [place] [address] 99801- 6836 11 Feb, 2016 Dental examination Z01.20 [place] [address] [address]- [address] 07 Feb, 2016 [facility] [id number] [place] [phone] 03 Feb, 2016 Acute bronchitis, unspecified organism J20.9 [facility] [id number] [place] [address] [id number]- 8703 26 Jan, 2016 Mood disorder F39 ; Migraine without aura and without status migrainosus, not intractable G43.009 ; Irritable bowel syndrome, unspecified type K58.9 ; Diabetes E11.9 and Encounter for immunization Z23 [facility] [id number] [place] [address] 38060- 4017 15 Jan, 2016 [facility] [id number] [place] [address] 34266- 5343 Jan, [facility] [id number] [place] [address] [phone]- [phone] Jan, [facility] [address] [address]- [address] Jan, [facility] [id number] [place] [address] [phone]- 7358 Jan, [facility] [id number] [place] [address] 29259- 5751 Dec, Bipolar I disorder with depression F31.9 ; PTSD (post- traumatic stress disorder) F43.10 and Panic disorder with agoraphobia F40.01 [facility] [id number] [place] [address] 74330- 6359 Dec, Chronic obstructive pulmonary disease, unspecified COPD type J44.9 ; Tremor R25.1 and Anxiety F41.9 [place] [address] [address]- [address] Dec, [facility] [address] [address]- [address] Nov, Tremors of nervous system R25.1 and Cramping of feet R25.2 [place] [id number] [place] [address] [phone]- 7791 Nov, [place] [address] [address]- [address] Nov, [facility] [id number] [place] [address] [phone]- 1590 Oct, Chronic obstructive pulmonary disease, unspecified J44.9 [facility] [id number] [place] [address] 07390- 8332 Oct, [facility] [id number] [place] [address] 15675- 6529 Oct, Tremor R25.1 [facility] [address] 26428- 9520 Oct, Bipolar I disorder with depression F31.9 ; Diabetes E11.9 ; PTSD (post-traumatic stress disorder) F43.10 and Panic disorder with agoraphobia F40.01 [facility] [id number] [place] [address] 58780- 4500 Oct, Mood disorder F39 [facility] [id number] [place] [address] 65477- 0010 September, [facility] [id number] [place] [address] 31373- 0494 September, Diabetes E11.9 ; Bipolar I disorder with depression F31.9 ; PTSD (post-traumatic stress disorder) F43.10 and Panic disorder with agoraphobia F40.01 [facility] [id number] [place] [address] 86513- 4396 September, Mood disorder F39 ; Schizoaffective disorder, unspecified type F25.9 ; Arthritis M19.90 ; Tremor R25.1 ; Acute non-recurrent frontal sinusitis J01.10 and Blood in stool K92.1 [facility] [id number] [place] [address] 83257- 1618 September, [facility] [id number] [place] [address] 74167- 6404 September, Chronic obstructive pulmonary disease, unspecified J44.9 [facility] [id number] [place] [address] 86912- 4778 September, Diabetes E11.9 [facility] [id number] [place] [address] 25791- 5209 Aug, Other bipolar disorder F31.89 and Anxiety disorder, unspecified F41.9 [facility] [id number] [place] [address] 13392- 2810 Aug, [facility] [id number] [place] [address] 21491- 2934 Aug, Diabetes E11.9 [facility] [id number] [place] [address] 33265- 1717 Aug, [facility] [id number] [place] [address] 36619- 5112 14 Aug, 2015 Diabetes E11.9 ; Fatigue R53.83 and Dizziness R42 [facility] [id number] [place] [address] 94215- 0940 Aug, Other bipolar disorder F31.89 [facility] [address] [address] 6105 Aug, Generalized anxiety disorder F41.1 [facility] [id number] [place] [address] 45735- 4796 Aug, Other bipolar disorder F31.89 and Anxiety disorder, unspecified F41.9 [facility] [id number] [place] [address] 34666- 4766 Aug, [facility] [id number] [place] [address] 33961- 5415 Jul, [facility] [id number] [place] [address] 03314- 1918 Jul, [facility] [id number] [place] [address] 01013- 5259 Jul, Bronchitis J40 [facility] [id number] [place] [address] 85355- 1325 Jul, Anxiety disorder F41.9 [facility] [id number] [place] [address] 21773- 3100 Jul, Other bipolar disorder F31.89 and Anxiety disorder, unspecified F41.9 [facility] [address], [place] [address]- 3506 Jul, Other bipolar disorder F31.89 and Fibromyalgia M79.7 [facility] [address] [address]- 2413 Jul, [facility] [address] [address]- 2540 Jul, [facility] [id number] [place] [address] 68354- 1206 Jul, [facility] [id number] [place] [address] 37659- 2541 Jul, Other bipolar disorder F31.89 and Anxiety disorder, unspecified F41.9 [facility] [id number] [place] [address] 06108- 8991 Jun, GERD (gastroesophageal reflux disease) K21.9 [facility] [address] 22435- 0383 Jun, [facility] [id number] [place] [address] 30490- 3737 May, [facility] [address] 78997- 4498 May, Diabetes E11.9 ; Back pain M54.9 ; GERD (gastroesophageal reflux disease) K21.9 ; Hypertension I10 and Peripheral neuropathy G62.9 [facility] [id number] [place] [address] 40379- 8754 Mar, [facility] [id number] [place] [address] 08499- 2491 Mar, [facility] [id number] [place] [address] 80326- 1930 Mar, Acute sinusitis J01.90 and Otitis media, left H66.92 [facility] [id number] [place] [address] 53465- 3515 Feb, [facility] [id number] [place] [address] 53667- 0133 Feb, [facility] [id number] [place] [address] 56254- 1822 15 Feb, 2015 [facility] [id number] [place] [address] 33088- 1632 Feb, [facility] [id number] [place] [address] 27385- 4988 29 Jan, 2015 [facility] [id number] [place] [address] 49949- 7749 24 Jan, 2015 Diabetes 250.00 and Back pain 724.5 [facility] [address] 99771- 8853 Jan, [facility] [id number] [place] [address] 95636- 3194 Dec, Diabetes 250.00 ; Benign essential hypertension 401.1 and Allergic rhinitis 477.9 [facility] [id number] [place] [address] 05447- 3801 Dec, [facility] [id number] [place] [address] 18715- 8407 Dec, [facility] [id number] [place] [address] 34763- 1175 Dec, Psychosis 298.9 [facility] [address] 06643- 1603 Dec, Medication side effect 995.20 and Generalized anxiety disorder 300.02 [facility] [id number] [place] [address] 73648- 7829 Dec, Acquired cognitive dysfunction 294.9 [facility] [id number] [place] [address] 39496- 3624 Dec, [facility] [id number] [place] [address] 34885- 1897 Dec, Unspecified myalgia and myositis 729.1 and Generalized anxiety disorder 300.02 [facility] [id number] [place] [address] 89101- 2680 Nov, [facility] [id number] [place] [address] 96029- 5638 Nov, [facility] [id number] [place] [address] 46010- 9109 Nov, [facility] [id number] [place] [address] 80863- 8861 Nov, Upper respiratory infection 465.9 and Chronic airway obstruction, not elsewhere classified 496 [facility] [id number] [place] [address] 04004- 1951 Nov, Hyponatremia 276.1 [facility] [address], [place] [address]- 5160 Oct, [facility] [address], [place] [address]- 4077 Oct, [facility] [address], [place] [address]- 6829 Oct, [facility] [id number] [place] [address] 66149- 1666 Oct, [facility] [id number] [place] [address] 72451- 1257 Oct, Hyponatremia 276.1 [facility] [id number] [place] [address] 89184- 1713 Oct, [facility] [id number] [place] [address] 94430- 8530 Oct, [facility] [address], [place] [address]- 3928 Oct, Generalized anxiety disorder 300.02 [facility] [id number] [place] [address] 91681- 6949 Oct, Generalized anxiety disorder 300.02 and Diabetes 250.00 [facility] [address], [place] [address]- 9743 Aug, [facility] [address], [place] [address]- 8811 Aug, [facility] [address], [place] [address]- 3810 Jul, [facility] [id number] [address]- 5706 Jul, [facility] [address], [place] [address]- 7471 Jun, [facility] [id number] [place] [address] 94257- 1009 Jun, [facility] [address] [id number] [place] [address]- 9784 Jun, [facility] [place] [facility] [address] [id number] [place] [address]- 3196 Jun, [facility] [place] [facility] [address] [facility] [id number] [place] [address]- 7306 Jun, [facility] [place] [facility] [address] [id number] [place] [address]- 0856 May, [facility] [place] [facility] [address] [id number] [place] [address]- 9745 May, [facility] [address] [id number] [place] [address]- 8948 Apr, [facility] [address] [id number] [place] [address]- 0957 Apr, [facility] [place] [facility] [address] [id number] [place] [address]- 6775 Apr, [facility] [address] [id number] [place] [address]- 2432 Apr, [facility] [place] [facility] [address] [facility] [id number] [place] [address]- 5475 Apr, [facility] [place] [facility] [address] [facility] [id number], [place] [address]- 9377 Apr, [facility] [place] [facility] [address] [id number], [place] [address]- 5034 Apr, [facility] [place] [facility] [address] [id number] [place] [address]- 2099 Apr, [facility] [place] [facility] [address] [id number] [place] [address]- 5101 Feb, [facility] [place] [facility] [address] [facility] [id number] [place] [address]- 8921 Feb, [facility] [place] [facility] [address] [id number] [place] [address]- 2546 Jan, [facility] [address] [id number] [place] [address]- 5156 Jan, [facility] [place] [facility] [address] [id number] [place] [address]- 2546 Dec, [facility] [address] [id number] [place] [address]- 2546 Dec, [facility] [address] [id number] [place] [address] 2546 Dec, [facility] [address] [id number] [place] [address]- 7162 Nov, [facility] [address] [id number] [place] [address]- 9656 Nov, [facility] [address] [id number] [place] [address]- 3780 Nov, [facility] [address] [id number] [place] [address]- 5400 Oct, [facility] [address] [id number] [place] [address]- 2013 Oct, [facility] [address] [id number] [place] [address]- 2029 Oct, [facility] [address] [id number] [place] [address]- 9536 September, [facility] [address] [id number] [place] [address]- 7602 September, [facility] [place] [facility] [address] [id number] [place] [address]- 2546 September, [facility] [address] [id number] [place] [address]- 2546 Aug, [facility] [place] [facility] [address] [id number] [place] [address]- 3773 Aug, [facility] [address] [id number] [place] [address]- 1833 Aug, [facility] [place] [facility] [address] [id number] [place] [address]- 9906 16 Aug, 2011 [facility] [place] [facility] [address] [id number] [place] [address]- 9456 Jul, [facility] [place] [facility] [address] [id number] [place] [address]- 9738 Jun, [facility] [place] [facility] [address] [id number] [place] [address]- 2199 14 Jun, 2011 [facility] [place] [facility] [address] [id number] [place] [address]- 3623 Jun, [facility] [place] [facility] [address] [id number] [place] [address]- 6273 Jun, [facility] [place] [facility] [address] [id number] [place] [address]- 3845 Jun, [facility] [place] [facility] [address] [id number] [place] [address]- 1555 May, [facility] [place] [facility] [address] [id number] [place] [address]- 7539 May, [facility] [place] [facility] [address] [id number] [place] [address]- 7260 May, [facility] [place] [facility] [address] [id number] [place] [address]- 0052 May, [facility] [place] [facility] [address] [id number] [place] [address]- 4277 Apr, [facility] [place] [facility] [address] [id number] [place] [address]- 2739 Apr, [facility] [place] [facility] [address] [id number] [place] [address]- 7491 Apr, [facility] [place] [facility] [address] [id number] [place] [address]- 5775 Mar, [facility] [address] [id number] [place] [address]- 8273 Mar, [facility] [address] [id number] [place] [address]- 9838 Mar, [facility] [address] [id number] [place] [address]- 9844 13 Feb, 2011 [facility] [address] [id number] [place] [address]- 1119 13 Feb, 2011 [facility] [id number] [place] [address], [place] [address]- 5078 Feb, [facility] [address] [facility] [id number] [place] [address]- 5328 Nov, [facility] [address] [facility] [id number] [place] [address]- 0406 September, [facility] [address] [facility] [id number] [place] [address]- 1912 Aug, [facility] [address] [facility] [id number] [place] [address]- 9718 14 Jul, 2010 [facility] [address] [facility] [id number] [place] [address]- 8258 May, [facility] [address] [facility] [id number] [place] [address]- 5816 Apr, [facility] [address] [id number] [place] [address]- 4353 30 Apr, 2010 [facility] [address] [facility] [id number] [place] [address]- 9850 Apr, [facility] [address] [facility] [id number] [place] [address]- 7543 Apr, [facility] [address] [facility] [id number] [place] [address]- 5822 Apr, IMMUNIZATIONS No Known Immunizations SOCIAL HISTORY Never Assessed REASON FOR VISIT Requests return call PLAN OF CARE VITAL SIGNS MEDICATIONS Unknown [...]
--- OUTSIDE RECORDS SUMMARY | 2017-11-18 07:08 | XMS REPORT ---
Author Author WHIT GANDHI [facility] Address [address] [place] [address] Care Team Providers Care Electrical Technician Name Role Phone WHIT GANDHI Unavailable PROBLEMS Type Condition ICD9-CM Code [id number] Code Onset Dates Condition Status SNOMED Code Problem Back pain M54.9 Active 724328667 Problem Diabetes E11.9 Active 25576031 Problem GERD (gastroesophageal reflux disease) K21.9 Active 875869302 Problem Hypertension I10 Active 67537679 Problem Anxiety disorder, unspecified F41.9 Active 508747793 Problem Other bipolar disorder F31.89 Active 61172935 Problem Fibromyalgia M79.7 Active 65023014 Problem Panic disorder with agoraphobia F40.01 Active 41445063 Problem Panlobular emphysema J43.1 Active 0440713 Problem Chronic obstructive pulmonary disease, unspecified J44.9 Active 77490610 Problem Akathisia G25.71 Active 140568759 Problem Lumbago with sciatica, left side M54.42 Active 590096683 Problem Migraine without aura and without status migrainosus, not intractable G43.009 Active 716243349 Problem Fibrocystic disease of right breast N60.11 Active 91557700 Problem Fibrocystic disease of left breast N60.12 Active 69554820 Problem Slow transit constipation K59.01 Active 47548796 Problem Essential tremor G25.0 Active 320676625 Problem Bipolar 1 disorder, depressed, moderate F31.32 Active 89852955 Problem Other chronic pain G89.29 Active 81305536 Problem Lumbago with sciatica, right side M54.41 Active 277353897 Problem Irritable bowel syndrome with constipation K58.1 Active 714701580 Problem Arthritis M19.90 Active 9045060 Problem Schizoaffective disorder, bipolar type F25.0 Active 43960693 Problem Irritable bowel syndrome with both constipation and diarrhea K58.2 Active 00419210 Problem Attention deficit hyperactivity disorder (ADHD), predominantly inattentive type F90.0 Active 65762881 Problem Bipolar I disorder with depression F31.9 Active 84306831 Problem Chronic post-traumatic stress disorder (PTSD) F43.12 Active 096926891 Problem Bipolar affective disorder, remission status unspecified F31.9 Active 93223109 Problem Mild persistent asthma without complication J45.30 Active 250681151 Problem Moderate persistent asthma without complication J45.40 Active 851965260 Problem Acute non-recurrent maxillary sinusitis J01.00 Active 13047471 Problem Bipolar 1 disorder, depressed, partial remission F31.75 Active 66939345 ALLERGIES No Information ENCOUNTERS Encounter Location Date Diagnosis [facility] [id number] [place] [address] 47229- 4567 Nov, [facility] [address] 14314- 8070 Nov, [facility] [address] 10980- 0115 Nov, [facility] [address] 65066- 8506 Oct, [facility] [id number] [place] [address] 66607- 0494 Oct, [facility] [id number] [place] [address] 74093- 1524 Oct, Type 2 diabetes mellitus with diabetic neuropathy, unspecified whether alf insulin use E11.40 ; Diabetes E11.9 ; Slow transit constipation K59.01 ; Edema of both legs R60.0 and Dysfunction of right eustachian tube H69.81 [facility] [id number] [place] [address] 28774- 1869 Oct, Frequent headaches R51 [facility] [address] 90405- 0565 Oct, [facility] [id number] [place] [address] 24712- 6633 Oct, [facility] [address] 18290- 0194 Oct, [facility] [address] [address] 2770 Oct, [facility] [id number] [place] [address] 74535- 6948 Oct, [facility] [address] [address]- 3256 Oct, [facility] [id number] [place] [address] 37772- 9017 Oct, [facility] [id number] [place] [address] 81961- 8331 Oct, [facility] [id number] [place] [address] 17467- 0237 September, Frequent headaches R51 [facility] [id number] [place] [address] 89001- 3377 September, Bilateral otitis media with effusion H65.93 ; Dizziness R42 and Essential tremor G25.0 [facility] [id number] [place] [address] 64715- 6818 September, Chronic obstructive pulmonary disease, unspecified COPD type J44.9 [facility] [id number] [address]- 5986 September, Chronic obstructive pulmonary disease, unspecified COPD type J44.9 [facility] [address] [address]- 2841 September, Migraine without aura and without status migrainosus, not intractable G43.009 [facility] [address] [address]- 7558 September, [facility] [id number] [place] [address] 54003- 0541 September, [facility] [address] [address]- 7198 September, [facility] [id number] [place] [address] 24947- 5106 September, Frequent headaches R51 [facility] [id number] [place] [address] 37627- 7063 Aug, [facility] [id number] [place] [address] 37937- 4789 Aug, Breast mass, right N63.10 [facility] [address] 81121- 8831 Aug, Breast lump N63.0 [facility] [address] 27284- 7778 Aug, [facility] [address] 75550- 9569 Aug, Bipolar affective disorder, remission status unspecified F31.9 and Diabetes E11.9 [facility] [id number] [place] [address] 69743- 3497 Aug, Diabetes E11.9 ; Schizoaffective disorder, bipolar type F25.0 ; Pharyngitis due to other organism J02.8 ; Panlobular emphysema J43.1 and Irritable bowel syndrome with both constipation and diarrhea K58.2 [facility] [id number] [place] [address] 93418- 7761 Aug, Abnormal mammogram R92.8 [facility] [id number] [place] [address] 56303- 8302 Aug, [facility] [id number] [place] [address] 12732- 6418 Aug, Bipolar 1 disorder, depressed, moderate F31.32 ; Panic disorder with agoraphobia F40.01 and Chronic post-traumatic stress disorder ( PTSD) F43.12 [facility] [id number] [place] [address] 45391- 5929 Aug, [facility] [id number] [place] [address] 76702- 4312 Aug, [facility] [address] [place] [address] 33937- 4453 Aug, [facility] [id number] [place] [address] 27534328- 5788 Jul, [facility] [id number] [place] [address] 38317- 7581 20 Jul, 2017 Mild persistent asthma without complication J45.30 [facility] [id number] [place] [address] 91114- 9221 19 Jul, 2017 Mild persistent asthma without complication J45.30 [facility] [id number] [place] [address] 036341- 9519 15 Jul, 2017 Bipolar affective disorder, remission status unspecified F31.9 ; Diabetes E11.9 and Irritable bowel syndrome with constipation K58.1 [facility] [id number] [place] [address] 54352- 4078 Jul, [facility] [id number] [place] [address] 54709- 0826 Jul, [facility] [id number] [place] [address] 84352- 7209 Jul, Frequent headaches R51 [facility] [id number] [place] [address] 47930- 2601 Jul, [facility] [id number] [place] [address] 58364- 1778 Jul, [facility] [address] [place] [address] 62594- 8878 Jul, [facility] [id number] [place] [address] 24567169- 9899 Jul, Frequent headaches R51 ; Fibrocystic disease of left breast N60.12 ; Fibrocystic disease of right breast N60.11 and Diabetes E11.9 [facility] [id number] [place] [address] 79428- 4745 Jul, [facility] [address] [place] [address] 14750- 7723 Jul, [facility] [id number] [place] [address] 92529- 9177 Jun, Exudative tonsillitis J03.90 [facility] [id number] [place] [address] 04048- 5060 Jun, [facility] [id number] [place] [address] 62599- 9904 Jun, [facility] [id number] [place] [address] 46456- 9671 15 Jun, 2017 Mild persistent asthma without complication J45.30 ; Chronic obstructive pulmonary disease, unspecified COPD type J44.9 and Exudative tonsillitis J03.90 [facility] [id number] [place] [address] 58308- 6467 13 Jun, 2017 Encounter for immunization Z23 [facility] [id number] [place] [address] 60221- 4868 Jun, [facility] [id number] [place] [address] 32919- 8454 Jun, [facility] [id number] [place] [address] 96427- 8582 Jun, [facility] [address] [place] [address] 37829 -0461 Jun, Tonsillitis J03.90 [facility] [id number] [place] [address] 31319- 2951 Jun, [facility] [id number] [place] [address] 87702- 4488 Jun, Acute non-recurrent maxillary sinusitis J01.00 [facility] [id number] [place] [address] 72804- 1073 Jun, [facility] [id number] [place] [address] 91665- 9794 May, [facility] [address] 99634- 4749 May, [facility] [id number] [place] [address] 26574- 5579 May, GERD (gastroesophageal reflux disease) K21.9 [facility] [address] 17764- 6805 May, Migraine without aura and without status migrainosus, not intractable G43.009 [facility] [address] 55515- 4487 May, [facility] [address] 40604- 8272 May, [facility] [address] 14627- 2985 May, Panlobular emphysema J43.1 and Acute non-recurrent maxillary sinusitis J01.00 [facility] [id number] [place] [address] 73817- 9114 May, Bipolar 1 disorder, depressed, moderate F31.32 ; Panic disorder with agoraphobia F40.01 and Akathisia G25.71 [facility] [id number] [place] [address] 33450- 0090 Apr, [facility] [id number] [place] [address] 03712- 7103 Apr, [facility] [id number] [place] [address] 51246- 5743 Apr, Acute non-recurrent maxillary sinusitis J01.00 [facility] [id number] [place] [address] 92978- 0251 Apr, Panlobular emphysema J43.1 [facility] [address] [place] [address]- 3876 Apr, [facility] [id number] [place] [address] 37942 -1814 Apr, Sore throat J02.9 and Exudative tonsillitis J03.90 [facility] [address] 14276- 9644 Mar, [facility] [address] 91982- 0503 Mar, Acute non-recurrent maxillary sinusitis J01.00 [facility] [address] 84940- 1130 Mar, [facility] [address] 78562- 7742 Mar, Panlobular emphysema J43.1 and Diabetes E11.9 [facility] [address] 15754- 3158 Mar, [facility] [id number] [place] [address] 71939 -5219 Feb, Wheezing R06.2 and Acute recurrent pansinusitis J01.41 [facility] [id number] [place] [address] 27629- 0431 Feb, [facility] [id number] [place] [address] 41392- 2425 Feb, Acute non-recurrent maxillary sinusitis J01.00 [facility] [id number] [place] [address] 11270- 8395 Feb, Chronic obstructive pulmonary disease, unspecified J44.9 [facility] [address] 48257- 3529 Feb, Hypoxemia R09.02 and Chronic obstructive pulmonary disease, unspecified J44.9 [facility] [address] 73174- 3027 Jan, Bipolar 1 disorder, depressed, moderate F31.32 ; Panic disorder with agoraphobia F40.01 ; Chronic post-traumatic stress disorder (PTSD ) F43.12 ; Diabetes E11.9 and Moderate persistent asthma without complication J45.40 [facility] [id number] [place] [address] 13446 2546 22 Jan, 2017 [facility] [address] 03199 2546 19 Jan, 2017 Acute non-recurrent maxillary sinusitis J01.00 [facility] [id number] [place] [address] 71493 2546 18 Jan, 2017 [facility] [address] 89531 2546 Jan, [facility] [address] 58540 2546 Jan, Moderate persistent asthma without complication J45.40 and Hypoxemia R09.02 [facility] [id number] [place] [address] 15476 2546 Jan, Moderate persistent asthma without complication J45.40 and Hypoxemia R09.02 [facility] [id number] [place] [address] 74887 2546 Jan, [facility] [id number] [place] [address] 92856 2546 Dec, Acute non-recurrent maxillary sinusitis J01.00 [facility] [id number] [place] [address] 89513 2546 Dec, Chronic obstructive pulmonary disease, unspecified J44.9 [facility] [address] 70873 2546 Dec, [facility] [address] 73685 2546 Dec, Mild persistent asthma without complication J45.30 and Other chronic pain G89.29 [facility] [address] [place] [address]- 0803 Nov, [facility] [id number] [place] [address] 73152- 2532 Nov, Acute non-recurrent maxillary sinusitis J01.00 [facility] [id number] [place] [address] 82872- 2078 Nov, [facility] [id number] [place] [address] 24747- 5340 Nov, [facility] [id number] [place] [address] 77957- 2946 Oct, [facility] [id number] [place] [address] 27911- 0963 Oct, Bipolar 1 disorder, depressed, partial remission F31.75 ; Panic disorder with agoraphobia F40.01 and Chronic post-traumatic stress disorder (PTSD) F43.12 [facility] [id number] [place] [address] 26081- 9815 Oct, Acute non-recurrent maxillary sinusitis J01.00 [facility] [id number] [place] [address] 84587- 1218 Oct, [facility] [id number] [place] [address] 84841- 1110 Oct, Diabetes E11.9 [facility] [id number] [place] [address] 70569- 6254 September, Diabetes E11.9 [facility] [id number] [place] [address] 53987- 6227 September, Diabetes E11.9 and Sinus tachycardia R00.0 [facility] [id number] [place] [address] 61774- 8938 September, [facility] [id number] [place] [address] 30820- 4675 September, [facility] [id number] [place] [address] 49694- 6711 Aug, Diabetes E11.9 and Lumbago with sciatica, right side M54.41 [facility] [id number] [place] [address] 06407- 5130 Aug, [facility] [id number] [place] [address] 59490- 0669 Jul, Bipolar 1 disorder, depressed, moderate F31.32 ; Panic disorder with agoraphobia F40.01 and Chronic post-traumatic stress disorder ( PTSD) F43.12 [facility] [id number] [place] [address] 17524- 1679 Jul, Sore throat J02.9 [facility] [id number] [place] [address] 15283- 8283 Jul, [facility] [id number] [place] [address] 05106- 3402 Jul, [facility] [id number] [place] [address] 14172- 6657 Jul, [facility] [address] [place] [address] 34207- 1200 Jul, [facility] [id number] [place] [address] 53264- 3013 Jul, Sore throat J02.9 and Pharyngitis, unspecified etiology J02.9 [facility] [address] [address]- 5020 Jun, [facility] [address] [address]- 9245 Jun, Diabetes E11.9 [facility] [address] [place] [address] 43598- 7926 Jun, [facility] [address] [place] [address] 60866- 1123 Jun, [facility] [address] [address]- 0170 16 Jun, 2016 [facility] [address] [address]- 7559 Jun, [facility] [address] [address]- 2617 Jun, [facility] [address] [place] [address] 95339- 9300 Jun, [facility] [id number] [place] [address] 75496- 9039 Jun, [facility] [id number] [place] [address] 72961- 1549 Jun, [facility] [address] [place] [address] 51250- 3704 May, Diabetes E11.9 ; Bipolar I disorder with depression F31.9 ; Other chronic pain G89.29 ; Acute recurrent maxillary sinusitis J01.01 and Anxiety disorder, unspecified F41.9 [facility] [address] [address]- 7572 May, [facility] [address] [place] [address] 24751- 5413 May, Diabetes E11.9 ; Bipolar I disorder with depression F31.9 ; Anxiety disorder, unspecified F41.9 ; Other chronic pain G89.29 and Acute recurrent maxillary sinusitis J01.01 [facility] [address] [address]- 8701 May, [facility] [address] [place] [address] 66781- 0725 May, Attention deficit hyperactivity disorder (ADHD), predominantly inattentive type F90.0 [facility] [address] [address]- 0918 May, [facility] [address] [place] [address] 39835- 4827 Apr, Attention deficit hyperactivity disorder (ADHD), predominantly inattentive type F90.0 and Non-seasonal allergic rhinitis due to other allergic trigger J30.89 [facility] [id number] [place] [address] 85897- 3174 Apr, Bipolar 1 disorder, depressed, moderate F31.32 ; Panic disorder with agoraphobia F40.01 and Chronic post-traumatic stress disorder ( PTSD) F43.12 [facility] [id number] [place] [address] 22552- 6013 Apr, Dental examination Z01.20 [facility] [id number] [place] [address] 55497- 1181 Mar, [facility] [id number] [place] [address] 57537- 9352 Mar, [facility] [id number] [place] [address] 91128- 3800 Mar, Bipolar I disorder with depression F31.9 and Anxiety disorder, unspecified F41.9 [facility] [id number] [place] [address] 80812- 3112 Mar, Panic disorder with agoraphobia F40.01 ; Bipolar 1 disorder , depressed, moderate F31.32 and Chronic post-traumatic stress disorder (PTSD) F43.12 [facility] [id number] [place] [address] 29562- 5239 Mar, [facility] [id number] [place] [address] 98802- 9403 Mar, Dental caries K02.9 [facility] [id number] [place] [address] 84211- 5418 Feb, Lumbago with sciatica, left side M54.42 ; Lumbago with sciatica, right side M54.41 and Other chronic pain G89.29 [facility] [id number] [place] [address] 27712- 4666 Feb, [facility] [id number] [place] [address] 17858- 7041 14 Feb, 2016 [facility] [id number] [place] [address] 03454- 3270 Feb, Bipolar I disorder with depression F31.9 ; PTSD (post- traumatic stress disorder) F43.10 and Mood disorder F39 [facility] [address] 88186- 8493 Feb, [facility] [id number] [place] [address] 82040- 3932 11 Feb, 2016 Dental examination Z01.20 [facility] [address] 52091- 2140 07 Feb, 2016 [facility] [id number] [place] [address] 32667 -4148 03 Feb, 2016 Acute bronchitis, unspecified organism J20.9 [facility] [id number] [place] [address] 59373- 1208 26 Jan, 2016 Mood disorder F39 ; Migraine without aura and without status migrainosus, not intractable G43.009 ; Irritable bowel syndrome, unspecified type K58.9 ; Diabetes E11.9 and Encounter for immunization Z23 [facility] [id number] [place] [address] 70442- 4482 15 Jan, 2016 [facility] [id number] [place] [address] 31018- 4313 Jan, [facility] [id number] [place] [address] [phone] Jan, [facility] [address] [id number]- [phone] Jan, [facility] [id number] [place] [phone] Jan, [facility] [id number] [place] [address] [phone] Dec, Bipolar I disorder with depression F31.9 ; PTSD (post- traumatic stress disorder) F43.10 and Panic disorder with agoraphobia F40.01 [facility] [id number] [place] [address] [phone] Dec, Chronic obstructive pulmonary disease, unspecified COPD type J44.9 ; Tremor R25.1 and Anxiety F41.9 [place] [address] [phone]- [phone] Dec, [facility] [address] [phone]- [phone] Nov, Tremors of nervous system R25.1 and Cramping of feet R25.2 [place] [id number] [place] [address] [phone] Nov, [place] [address] [address]- [address] Nov, [facility] [address] [id number] [place] [address] 30868- 0439 Oct, Chronic obstructive pulmonary disease, unspecified J44.9 [place] [id number] [place] [address] 84207- 4558 Oct, [place] [id number] [place] [address] 33817- 4551 Oct, Tremor R25.1 [facility] [address] 98156- 4209 Oct, Bipolar I disorder with depression F31.9 ; Diabetes E11.9 ; PTSD (post-traumatic stress disorder) F43.10 and Panic disorder with agoraphobia F40.01 [facility] [id number] [place] [address] 71983- 1062 Oct, Mood disorder F39 [facility] [id number] [place] [address] 17895- 8998 September, [facility] [id number] [place] [address] 35277- 2925 September, Diabetes E11.9 ; Bipolar I disorder with depression F31.9 ; PTSD (post-traumatic stress disorder) F43.10 and Panic disorder with agoraphobia F40.01 [place] [id number] [place] [address] 69797- 0633 September, Mood disorder F39 ; Schizoaffective disorder, unspecified type F25.9 ; Arthritis M19.90 ; Tremor R25.1 ; Acute non-recurrent frontal sinusitis J01.10 and Blood in stool K92.1 [place] [id number] [place] [address] 02782- 7599 September, [place] [id number] [place] [address] 91456- 3531 September, Chronic obstructive pulmonary disease, unspecified J44.9 [place] [id number] [place] [address] 70132- 9493 September, Diabetes E11.9 [place] [id number] [place] [address] 02468- 4481 Aug, Other bipolar disorder F31.89 and Anxiety disorder, unspecified F41.9 [place] [id number] [place] [address] 69416- 2495 Aug, [place] [id number] [place] [address] 54616- 8132 Aug, Diabetes E11.9 [place] [id number] [place] [address] 27932- 0672 Aug, [place] [id number] [place] [address] 17410- 5811 14 Aug, 2015 Diabetes E11.9 ; Fatigue R53.83 and Dizziness R42 [place] [id number] [place] [address] 04957- 0854 Aug, Other bipolar disorder F31.89 [place] [address] [address] 2669 Aug, Generalized anxiety disorder F41.1 [facility] [id number] [place] [address] 66684- 6816 Aug, Other bipolar disorder F31.89 and Anxiety disorder, unspecified F41.9 [facility] [id number] [place] [address] 41515- 2346 Aug, [facility] [id number] [place] [address] 45932- 9275 Jul, [facility] [id number] [place] [address] 36482- 2979 Jul, [facility] [id number] [place] [address] 05524- 1433 Jul, Bronchitis J40 [facility] [id number] [place] [address] 67232- 6630 Jul, Anxiety disorder F41.9 [facility] [id number] [place] [address] 59209- 5268 Jul, Other bipolar disorder F31.89 and Anxiety disorder, unspecified F41.9 [facility] [address] [address]- 8518 Jul, Other bipolar disorder F31.89 and Fibromyalgia M79.7 [facility] [address] [address]- 2496 Jul, [facility] [address] [address]- 2542 Jul, [facility] [id number] [place] [address] 26887- 8256 Jul, [facility] [address] [place] [address] 56968- 254 Jul, Other bipolar disorder F31.89 and Anxiety disorder, unspecified F41.9 [facility] [id number] [place] [address] 78829- 4062 Jun, GERD (gastroesophageal reflux disease) K21.9 [facility] [address] 25934- 3727 Jun, [facility] [id number] [place] [address] 72063- 6874 May, [facility] [address] 21900- 1461 May, Diabetes E11.9 ; Back pain M54.9 ; GERD (gastroesophageal reflux disease) K21.9 ; Hypertension I10 and Peripheral neuropathy G62.9 [facility] [id number] [place] [address] 64749- 5893 Mar, [facility] [id number] [place] [address] 46281- 7574 Mar, [facility] [id number] [place] [address] 23100- 7579 Mar, Acute sinusitis J01.90 and Otitis media, left H66.92 [facility] [id number] [place] [address] 60253- 5036 Feb, [facility] [id number] [place] [address] 07657- 4577 Feb, [facility] [id number] [place] [address] 12469- 1366 15 Feb, 2015 [facility] [id number] [place] [address] 12873- 5037 Feb, [facility] [id number] [place] [address] 04274- 2428 29 Jan, 2015 [facility] [id number] [place] [address] 33761- 0610 24 Jan, 2015 Diabetes 250.00 and Back pain 724.5 [facility] [address] 50453- 8968 Jan, [facility] [address] [place] [address] 64867- 9623 Dec, Diabetes 250.00 ; Benign essential hypertension 401.1 and Allergic rhinitis 477.9 [facility] [id number] [place] [address] 39121- 0344 Dec, [facility] [id number] [place] [address] 19210- 0745 Dec, [facility] [id number] [place] [address] 09979- 7466 Dec, Psychosis 298.9 [facility] [address] 42526- 2505 Dec, Medication side effect 995.20 and Generalized anxiety disorder 300.02 [facility] [id number] [place] [address] 93107- 3747 Dec, Acquired cognitive dysfunction 294.9 [facility] [id number] [place] [address] 95466- 0047 Dec, [facility] [id number] [place] [address] 71828- 8099 Dec, Unspecified myalgia and myositis 729.1 and Generalized anxiety disorder 300.02 [facility] [id number] [place] [address] 78257- 4354 Nov, [facility] [id number] [place] [address] 18872- 2254 Nov, [facility] [id number] [place] [address] 55129- 9321 Nov, [facility] [id number] [place] [address] 44596- 4430 Nov, Upper respiratory infection 465.9 and Chronic airway obstruction, not elsewhere classified 496 [facility] [id number] [place] [address] 12846- 4579 Nov, Hyponatremia 276.1 [facility] [address] [address]- 5341 Oct, [facility] [address] [address]- 3992 Oct, [facility] [address] [address]- 3960 Oct, [facility] [id number] [place] [address] 78944- 5840 Oct, [facility] [address] [place] [address] 10873- 1849 Oct, Hyponatremia 276.1 [facility] [address] [place] [address] 06114- 8336 Oct, [facility] [address] [place] [address] 87809- 2774 Oct, [facility] [address] [address]- 1344 Oct, Generalized anxiety disorder 300.02 [facility] [id number] [place] [address] 39154- 0780 Oct, Generalized anxiety disorder 300.02 and Diabetes 250.00 [facility] [address] [address]- 3688 Aug, [facility] [address] [address]- 2221 Aug, [facility] [address] [address]- 7344 Jul, [facility] [address] [address]- 8686 Jul, [facility] [address] [address]- 0373 Jun, [facility] [address] [place] [address] 48853- 5815 Jun, [facility] [address] [id number] [place] [address]- 1136 Jun, [facility] [place] [facility] [address] [id number] [place] [address]- 1876 Jun, [facility] [place] [facility] [address] [facility] [id number] [place] [address]- 3356 Jun, [facility] [place] [facility] [address] [id number] [place] [address]- 2911 May, [facility] [place] [facility] [address] [id number] [place] [address]- 5444 May, [facility] [address] [id number] [place] [address]- 5499 Apr, [facility] [address] [id number] [place] [address]- 9998 Apr, [facility] [place] [facility] [address] [id number] [place] [address]- 8603 Apr, [facility] [address] [id number] [place] [address]- 4640 Apr, [facility] [place] [facility] [address] [facility] [id number] [place] [address]- 7334 Apr, [facility] [place] [facility] [address] [facility] [id number] [address]- 0628 Apr, [facility] [place] [facility] [address] [id number] [place] [address]- 7945 Apr, [facility] [place] [facility] [address] [id number] [place] [address]- 9370 Apr, [facility] [place] [facility] [address] [id number] [place] [address]- 5574 Feb, [facility] [place] [facility] [address] [facility] [id number] [place] [address]- 2566 Feb, [facility] [place] [facility] [address] [id number] [place] [address]- 2546 Jan, [facility] [address] [id number] [place] [address]- 8086 Jan, [facility] [place] [facility] [address] [id number] [place] [address]- 2546 Dec, [facility] [address] [id number] [place] [address]- 2546 Dec, [facility] [address] [id number] [place] [address] 2546 Dec, [facility] [address] [id number] [place] [address]- 1340 Nov, [facility] [address] [id number] [place] [address]- 4816 Nov, [facility] [address] [id number] [place] [address]- 1922 Nov, [facility] [address] [id number] [place] [address]- 2529 Oct, [facility] [address] [id number] [place] [address]- 7116 Oct, [facility] [address] [id number] [place] [address]- 9962 Oct, [facility] [address] [id number] [place] [address]- 0026 September, [facility] [address] [id number] [place] [address]- 7729 September, [facility] [place] [facility] [address] [id number] [place] [address]- 2546 September, [facility] [address] [id number] [place] [address]- 2546 Aug, [facility] [place] [facility] [address] [id number] [place] [address]- 1187 Aug, [facility] [address] [id number] [place] [address]- 2016 Aug, [facility] [place] [facility] [address] [id number] [place] [address]- 2786 16 Aug, 2011 [facility] [place] [facility] [address] [id number] [place] [address]- 3463 Jul, [facility] [place] [facility] [address] [id number] [place] [address]- 8891 Jun, [facility] [place] [facility] [address] [id number] [place] [address]- 2839 14 Jun, 2011 [facility] [place] [facility] [address] [id number] [place] [address]- 5115 Jun, [facility] [place] [facility] [address] [id number] [place] [address]- 2359 Jun, [facility] [place] [facility] [address] [id number] [place] [address]- 1477 Jun, [facility] [place] [facility] [address] [id number] [place] [address]- 0091 May, [facility] [place] [facility] [address] [id number] [place] [address]- 1224 May, [facility] [place] [facility] [address] [id number] [place] [address]- 2641 May, [facility] [place] [facility] [address] [id number] [place] [address]- 9559 May, [facility] [place] [facility] [address] [id number] [place] [address]- 0108 Apr, [facility] [place] [facility] [address] [id number] [place] [address]- 9317 Apr, [facility] [place] [facility] [address] [id number] [place] [address]- 3160 Apr, [facility] [place] [facility] [address] [id number] [place] [address]- 1444 Mar, [facility] [address] [id number] [place] [address]- 5391 Mar, [facility] [address] [id number] [place] [address]- 1617 Mar, [facility] [address] [id number] [place] [address]- 7398 13 Feb, 2011 [facility] [address] [id number] [place] [address]- 2047 13 Feb, 2011 [facility] [address] [id number] [place] [address], [place] [address]- 4835 Feb, [facility] [address] [facility] [id number] [place] [address]- 3431 Nov, [facility] [address] [facility] [id number] [place] [address]- 6187 September, [facility] [address] [facility] [id number] [place] [address]- 9935 Aug, [facility] [address] [facility] [id number] [place] [address]- 8015 14 Jul, 2010 [facility] [address] [facility] [id number] [place] [address]- 3121 May, [facility] [address] [facility] [id number] [place] [address]- 5202 Apr, [facility] [address] [id number] [place] [address]- 4964 30 Apr, 2010 [facility] [address] [facility] [id number] [place] [address]- 6330 Apr, [facility] [address] [facility] [id number] [place] [address]- 3923 Apr, [facility] [address] [facility] [id number] [place] [address]- 0524 Apr, IMMUNIZATIONS No Known Immunizations SOCIAL HISTORY Never Assessed REASON FOR VISIT Rx-diclofenac gel PLAN OF CARE VITAL SIGNS MEDICATIONS Medication Instructions Dosage Frequency Start Date End Date Duration Status Diclofenac Sodium 1 % Transdermal Four times a day 2-4- grams to affected areas 6h Jun, Aug, 10 days Active RESULTS No Results PROCEDURES No [...]
--- OUTSIDE RECORDS SUMMARY | 2017-11-18 07:08 | XMS REPORT ---
Author Author YVON WILLS Organization [facility] Address [address] [place] [address] Care Team Providers Care Inside Sales Account Manager Name Role Phone KYE WILLSA Unavailable PROBLEMS Type Condition ICD9-CM Code [id number] Code Onset Dates Condition Status SNOMED Code Problem Bipolar 1 disorder, depressed, moderate F31.32 Active 97705991 Problem Bipolar affective disorder, remission status unspecified F31.9 Active 04234449 Problem Chronic post-traumatic stress disorder (PTSD) F43.12 Active 570083197 Problem Moderate persistent asthma without complication J45.40 Active 018612290 Problem GERD (gastroesophageal reflux disease) K21.9 Active 625124793 Problem Mild persistent asthma without complication J45.30 Active 164320372 Problem Back pain M54.9 Active 039434339 Problem Nondependent tobacco use disorder 305.1 Active 109387802 Problem Bipolar I disorder with depression F31.9 Active 51885351 Problem Attention deficit hyperactivity disorder (ADHD), predominantly inattentive type F90.0 Active 58406015 Problem Bipolar 1 disorder, depressed, partial remission F31.75 Active 61845078 Problem Acute non-recurrent maxillary sinusitis J01.00 Active 83901558 Problem Anxiety disorder, unspecified F41.9 Active 773841673 Problem Other bipolar disorder F31.89 Active 77858769 Problem Diabetes E11.9 Active 64986535 Problem Hypertension I10 Active 38438100 Problem Chronic obstructive pulmonary disease, unspecified J44.9 Active 13879631 Problem Lumbago with sciatica, left side M54.42 Active 694945116 Problem Fibromyalgia M79.7 Active 84356889 Problem Lumbago with sciatica, right side M54.41 Active 065899134 Problem Panic disorder with agoraphobia F40.01 Active 18269422 Problem Other chronic pain G89.29 Active 95607011 ALLERGIES No Information SOCIAL HISTORY Never Assessed PLAN OF CARE VITAL SIGNS MEDICATIONS Medication Instructions Dosage Frequency Start Date End Date Duration Status Loxapine Succinate 10 mg Orally twice a day 1 capsule 12h 24 Sep, 2015 30 days Active RESULTS No Results PROCEDURES No Known procedures IMMUNIZATIONS No Known Immunizations MEDICAL (GENERAL) HISTORY Type Description Date Medical [...]
--- OUTSIDE RECORDS SUMMARY | 2017-11-18 07:09 | XMS REPORT ---
Author Author WHIT GANDHI [facility] Address [address] [place] [address] Care Team Providers Care Cyber Policy And Strategy Planner Name Role Phone WHIT GANDHI Unavailable PROBLEMS Type Condition ICD9-CM Code LOU74-PO Code Onset Dates Condition Status SNOMED Code Problem Back pain M54.9 Active 322871945 Problem Diabetes E11.9 Active 66259521 Problem GERD (gastroesophageal reflux disease) K21.9 Active 249576352 Problem Hypertension I10 Active 70573682 Problem Anxiety disorder, unspecified F41.9 Active 685780220 Problem Other bipolar disorder F31.89 Active 05377809 Problem Fibromyalgia M79.7 Active 30219310 Problem Panic disorder with agoraphobia F40.01 Active 49673937 Problem Panlobular emphysema J43.1 Active 9634762 Problem Chronic obstructive pulmonary disease, unspecified J44.9 Active 24809752 Problem Akathisia G25.71 Active 105061038 Problem Lumbago with sciatica, left side M54.42 Active 769390288 Problem Migraine without aura and without status migrainosus, not intractable G43.009 Active 288425584 Problem Fibrocystic disease of right breast N60.11 Active 38561561 Problem Fibrocystic disease of left breast N60.12 Active 52871578 Problem Slow transit constipation K59.01 Active 23227141 Problem Essential tremor G25.0 Active 235398133 Problem Bipolar 1 disorder, depressed, moderate F31.32 Active 59195586 Problem Other chronic pain G89.29 Active 13094871 Problem Lumbago with sciatica, right side M54.41 Active 334924772 Problem Irritable bowel syndrome with constipation K58.1 Active 440603606 Problem Arthritis M19.90 Active 7135687 Problem Schizoaffective disorder, bipolar type F25.0 Active 68515659 Problem Irritable bowel syndrome with both constipation and diarrhea K58.2 Active 75083800 Problem Attention deficit hyperactivity disorder (ADHD), predominantly inattentive type F90.0 Active 32279061 Problem Bipolar I disorder with depression F31.9 Active 09771610 Problem Chronic post-traumatic stress disorder (PTSD) F43.12 Active 117141764 Problem Bipolar affective disorder, remission status unspecified F31.9 Active 58875049 Problem Mild persistent asthma without complication J45.30 Active 517301003 Problem Moderate persistent asthma without complication J45.40 Active 802833503 Problem Acute non-recurrent maxillary sinusitis J01.00 Active 47831705 Problem Bipolar 1 disorder, depressed, partial remission F31.75 Active 83907371 ALLERGIES No Information ENCOUNTERS Encounter Location Date Diagnosis [facility] [id number] [place] [address] 45777- 1767 Nov, [facility] [address] 30527- 9657 Nov, [facility] [address] 07081- 3193 Oct, [facility] [id number] [place] [address] 52127- 6549 Oct, [facility] [id number] [place] [address] 35947- 1308 Oct, Type 2 diabetes mellitus with diabetic neuropathy, unspecified whether intermission coordinator insulin use E11.40 ; Diabetes E11.9 ; Slow transit constipation K59.01 ; Edema of both legs R60.0 and Dysfunction of right eustachian tube H69.81 [facility] [id number] [place] [address] 64329- 7798 Oct, Frequent headaches R51 [facility] [id number] [place] [address] 46205- 1106 Oct, [facility] [address] 13591- 1239 Oct, [facility] [id number] [place] [address] 85829- 0944 Oct, [facility] [id number] [place] [address] 72246- 9453 Oct, [facility] [address], [place] [address] 8179 Oct, [facility] [id number] [place] [address] 65233- 8265 Oct, [facility] [id number] [place] [address] 18385- 2115 Oct, [facility] [id number] [place] [address] 72054- 2671 Oct, [facility] [id number] [place] [address] 87719- 7688 September, Frequent headaches R51 [facility] [id number] [place] [address] 14020- 1578 September, Bilateral otitis media with effusion H65.93 ; Dizziness R42 and Essential tremor G25.0 [facility] [id number] [place] [address] 09911- 8513 September, Chronic obstructive pulmonary disease, unspecified COPD type J44.9 [facility] [id number] [place] [address] 70028- 6297 September, Chronic obstructive pulmonary disease, unspecified COPD type J44.9 [facility] [id number] [place] [address] 82705- 5322 September, Migraine without aura and without status migrainosus, not intractable G43.009 [facility] [address], [place] [address]- 0338 September, [facility] [id number] [address]- 8883 September, [facility] [id number] [place] [address] 90111- 0624 September, [facility] [address] [place] [address]- 5764 September, Frequent headaches R51 [facility] [id number] [place] [address] 35182- 1715 Aug, [facility] [id number] [place] [address] 20185- 7706 Aug, Breast mass, right N63.10 [facility] [id number] [place] [address] 35931- 1107 Aug, Breast lump N63.0 [facility] [address] 91120- 9078 Aug, [facility] [id number] [place] [address] 42533- 1715 Aug, Bipolar affective disorder, remission status unspecified F31.9 and Diabetes E11.9 [facility] [id number] [place] [address] 69906- 5531 Aug, Diabetes E11.9 ; Schizoaffective disorder, bipolar type F25.0 ; Pharyngitis due to other organism J02.8 ; Panlobular emphysema J43.1 and Irritable bowel syndrome with both constipation and diarrhea K58.2 [facility] [id number] [place] [address] 97952- 4146 Aug, Abnormal mammogram R92.8 [facility] [id number] [place] [address] 08172- 4095 Aug, [facility] [id number] [place] [address] 89359- 2082 Aug, Bipolar 1 disorder, depressed, moderate F31.32 ; Panic disorder with agoraphobia F40.01 and Chronic post-traumatic stress disorder ( PTSD) F43.12 [facility] [id number] [place] [address] 49523- 9872 Aug, [facility] [id number] [place] [address] 96940- 5497 Aug, [facility] [address] 93761- 6305 Aug, [facility] [address], [place] [address]- 6531 Jul, [facility] [id number] [place] [address] 05979- 5211 20 Jul, 2017 Mild persistent asthma without complication J45.30 [facility] [id number] [address]- 9304 19 Jul, 2017 Mild persistent asthma without complication J45.30 [facility] [id number] [place] [address] 09414- 6071 15 Jul, 2017 Bipolar affective disorder, remission status unspecified F31.9 ; Diabetes E11.9 and Irritable bowel syndrome with constipation K58.1 [facility] [id number] [address]- 4799 13 Jul, 2017 [facility] [id number] [place] [address] 16260- 0415 Jul, [facility] [id number] [place] [address] 81835- 4080 Jul, Frequent headaches R51 [facility] [id number] [place] [address] 85907- 7949 Jul, [facility] [address], [place] [address]- 7930 Jul, [facility] [id number] [place] [address] 05272- 7638 Jul, [facility] [address], [place] [address]- 5995 Jul, Frequent headaches R51 ; Fibrocystic disease of left breast N60.12 ; Fibrocystic disease of right breast N60.11 and Diabetes E11.9 [facility] [address], [place] [address]- 2274 Jul, [facility] [id number] [place] [address] 19478- 0781 Jul, [facility] [id number] [place] [address] 60399- 8522 21 Jun, 2017 Exudative tonsillitis J03.90 [facility] [id number] [place] [address] 24376- 7359 20 Jun, 2017 [facility] [id number] [place] [address] 60111- 9431 19 Jun, 2017 [facility] [id number] [place] [address] 31751- 0768 15 Jun, 2017 Mild persistent asthma without complication J45.30 ; Chronic obstructive pulmonary disease, unspecified COPD type J44.9 and Exudative tonsillitis J03.90 [facility] [id number] [place] [address] 60046- 5566 13 Jun, 2017 Encounter for immunization Z23 [facility] [address] 95328- 8620 Jun, [facility] [id number] [place] [address] 00767- 5533 Jun, [facility] [id number] [place] [address] 33630- 9888 Jun, [facility] [id number] [place] [address] 46101 -9238 06 Jun, 2017 Tonsillitis J03.90 [facility] [id number] [place] [address] 27128- 8016 05 Jun, 2017 [facility] [id number] [place] [address] 35647- 3248 Jun, Acute non-recurrent maxillary sinusitis J01.00 [facility] [id number] [place] [address] 01239- 2758 Jun, [facility] [id number] [place] [address] 53311- 6843 May, [facility] [id number] [place] [address] 80001- 8764 May, [facility] [address] 26436- 9021 May, GERD (gastroesophageal reflux disease) K21.9 [facility] [id number] [place] [address] 50380- 7741 May, Migraine without aura and without status migrainosus, not intractable G43.009 [facility] [id number] [place] [address] 80310- 6184 May, [facility] [address] 88085- 1132 May, [facility] [id number] [place] [address] 57136- 5818 May, Panlobular emphysema J43.1 and Acute non-recurrent maxillary sinusitis J01.00 [facility] [id number] [place] [address] 41555- 0183 May, Bipolar 1 disorder, depressed, moderate F31.32 ; Panic disorder with agoraphobia F40.01 and Akathisia G25.71 [facility] [id number] [place] [address] 09331- 6412 Apr, [facility] [id number] [place] [address] 69433- 0336 Apr, [facility] [id number] [place] [address] 97949- 9299 Apr, Acute non-recurrent maxillary sinusitis J01.00 [facility] [id number] [place] [address] 83672- 9121 Apr, Panlobular emphysema J43.1 [facility] [id number] [place] [address] 27121- 8554 Apr, [facility] [address] [place] [address] 04 Apr, 2017 Sore throat J02.9 and Exudative tonsillitis J03.90 [facility] [address] 45096- 5469 Mar, [facility] [address] 00475- 0433 Mar, Acute non-recurrent maxillary sinusitis J01.00 [facility] [address] 78060- 9104 Mar, [facility] [address] 171556- 1261 Mar, Panlobular emphysema J43.1 and Diabetes E11.9 [facility] [address] 29523- 3075 Mar, [facility] [address] 02962 -4532 Feb, Wheezing R06.2 and Acute recurrent pansinusitis J01.41 [facility] [address] 90596- 4712 Feb, [facility] [address] 90655- 4259 Feb, Acute non-recurrent maxillary sinusitis J01.00 [facility] [address] 22406- 3272 Feb, Chronic obstructive pulmonary disease, unspecified J44.9 [facility] [address] 77356- 3288 Feb, Hypoxemia R09.02 and Chronic obstructive pulmonary disease, unspecified J44.9 [facility] [id number] [place] [address] 10632- 5454 Jan, Bipolar 1 disorder, depressed, moderate F31.32 ; Panic disorder with agoraphobia F40.01 ; Chronic post-traumatic stress disorder (PTSD ) F43.12 ; Diabetes E11.9 and Moderate persistent asthma without complication J45.40 [facility] [id number] [place] [address] 39527 2546 22 Jan, 2017 [facility] [id number] [place] [address] 32699 2546 19 Jan, 2017 Acute non-recurrent maxillary sinusitis J01.00 [facility] [address] 34191 2543 18 Jan, 2017 [facility] [id number] [place] [address] 50742 2547 18 Jan, 2017 [facility] [address] 81472 2548 Jan, Moderate persistent asthma without complication J45.40 and Hypoxemia R09.02 [facility] [id number] [place] [address] 98434 2540 Jan, Moderate persistent asthma without complication J45.40 and Hypoxemia R09.02 [facility] [id number] [place] [address] 24171 254 Jan, [facility] [id number] [place] [address] 66958 2545 Dec, Acute non-recurrent maxillary sinusitis J01.00 [facility] [id number] [place] [address] 84701- 8173 Dec, Chronic obstructive pulmonary disease, unspecified J44.9 [facility] [id number] [place] [address] 41723 254 Dec, [facility] [id number] [place] [address] 12392 2545 Dec, Mild persistent asthma without complication J45.30 and Other chronic pain G89.29 [facility] [id number] [place] [address] 47344 254 Nov, [facility] [address] [place] [address]- 6679 Nov, Acute non-recurrent maxillary sinusitis J01.00 [facility] [address], [place] [address]- 4208 Nov, [facility] [address], [place] [address]- 4324 Nov, [facility] [id number] [place] [address] 32705- 6139 Oct, [facility] [id number] [place] [address] 64567- 6061 Oct, Bipolar 1 disorder, depressed, partial remission F31.75 ; Panic disorder with agoraphobia F40.01 and Chronic post-traumatic stress disorder (PTSD) F43.12 [facility] [id number] [place] [address] 99330- 1278 Oct, Acute non-recurrent maxillary sinusitis J01.00 [facility] [id number], [place] [address]- 9396 Oct, [facility] [id number] [place] [address] 69357- 5903 Oct, Diabetes E11.9 [facility] [address], [place] [address]- 9536 September, Diabetes E11.9 [facility] [id number] [place] [address] 90608- 4408 September, Diabetes E11.9 and Sinus tachycardia R00.0 [facility] [address], [place] [address]- 6173 September, [facility] [id number] [place] [address] 73023- 4483 September, [facility] [address], [place] [address]- 2029 Aug, Diabetes E11.9 and Lumbago with sciatica, right side M54.41 [facility] [address], [place] [address]- 4900 Aug, [facility] [id number] [place] [address] 03868- 3778 Jul, Bipolar 1 disorder, depressed, moderate F31.32 ; Panic disorder with agoraphobia F40.01 and Chronic post-traumatic stress disorder ( PTSD) F43.12 [facility] [id number] [place] [address] 36194- 4047 Jul, Sore throat J02.9 [facility] [id number] [place] [address] 10506- 0467 Jul, [facility] [id number] [place] [address] 19385- 7020 Jul, [facility] [id number] [place] [address] 38262- 8560 Jul, [facility] [id number] [place] [address] 76616- 5540 Jul, [facility] [address] [place] [address] 19438- 6773 Jul, Sore throat J02.9 and Pharyngitis, unspecified etiology J02.9 [facility] [address], [place] [address]- 3029 Jun, [facility] [id number], [place] [address]- 5562 Jun, Diabetes E11.9 [facility] [address], [place] [address]- 6921 Jun, [facility] [address], [place] [address]- 5916 Jun, [facility] [id number], [place] [address]- 4175 Jun, [facility] [id number] [place] [address]- 7018 Jun, [facility] [address], [place] [address]- 2427 Jun, [facility] [address], [place] [address]- 2016 Jun, [facility] [address] [place] [address] 99762- 5890 Jun, [facility] [address] [place] [address] 75985- 9340 Jun, [facility] [id number] [place] [address] 78529- 6915 May, Diabetes E11.9 ; Bipolar I disorder with depression F31.9 ; Other chronic pain G89.29 ; Acute recurrent maxillary sinusitis J01.01 and Anxiety disorder, unspecified F41.9 [facility] [address] [place] [address] 60802- 7624 May, [facility] [address], [place] [address]- 6803 May, Diabetes E11.9 ; Bipolar I disorder with depression F31.9 ; Anxiety disorder, unspecified F41.9 ; Other chronic pain G89.29 and Acute recurrent maxillary sinusitis J01.01 [facility] [address], [place] [address]- 6789 May, [facility] [address], [place] [address]- 2903 May, Attention deficit hyperactivity disorder (ADHD), predominantly inattentive type F90.0 [facility] [address] [place] [address] 17381- 1595 May, [facility] [address], [place] [address]- 3609 Apr, Attention deficit hyperactivity disorder (ADHD), predominantly inattentive type F90.0 and Non-seasonal allergic rhinitis due to other allergic trigger J30.89 [facility] [address], [place] [address]- 7744 15 Apr, 2016 Bipolar 1 disorder, depressed, moderate F31.32 ; Panic disorder with agoraphobia F40.01 and Chronic post-traumatic stress disorder ( PTSD) F43.12 [facility] [id number] [place] [address] 42882- 9619 06 Apr, 2016 Dental examination Z01.20 [facility] [id number] [place] [address] 88704- 6091 Mar, [facility] [id number] [place] [address] 64455- 2974 Mar, [facility] [id number] [place] [address] 04780- 6429 Mar, Bipolar I disorder with depression F31.9 and Anxiety disorder, unspecified F41.9 [facility] [id number] [place] [address] 92289- 8019 08 Mar, 2016 Panic disorder with agoraphobia F40.01 ; Bipolar 1 disorder , depressed, moderate F31.32 and Chronic post-traumatic stress disorder (PTSD) F43.12 [facility] [id number] [place] [address] 65151- 1656 04 Mar, 2016 [facility] [id number] [place] [address] 81154- 5821 Mar, Dental caries K02.9 [facility] [id number] [place] [address] 40206- 2622 24 Feb, 2016 Lumbago with sciatica, left side M54.42 ; Lumbago with sciatica, right side M54.41 and Other chronic pain G89.29 [facility] [id number] [place] [address] 75310- 6424 Feb, [facility] [id number] [place] [address] 73846- 5248 14 Feb, 2016 [facility] [id number] [place] [address] 66655- 3648 Feb, Bipolar I disorder with depression F31.9 ; PTSD (post- traumatic stress disorder) F43.10 and Mood disorder F39 [facility] [id number] [place] [address] 27232- 7483 Feb, [facility] [address] 52044- 0492 Feb, Dental examination Z01.20 [facility] [address] 97805- 5331 07 Feb, 2016 [facility] [address] 12485 -8187 Feb, Acute bronchitis, unspecified organism J20.9 [facility] [id number] [place] [address] 85399- 2128 26 Jan, 2016 Mood disorder F39 ; Migraine without aura and without status migrainosus, not intractable G43.009 ; Irritable bowel syndrome, unspecified type K58.9 ; Diabetes E11.9 and Encounter for immunization Z23 [facility] [id number] [place] [address] 73209- 9362 15 Jan, 2016 [facility] [id number] [place] [address] 58433- 6568 Jan, [facility] [id number] [place] [address] 58279- 0788 Jan, [facility] [id number] [place] [address] 85688- 9262 Jan, [facility] [address] 84579- 6994 Jan, [facility] [id number] [place] [address] 52796- 1130 Dec, Bipolar I disorder with depression F31.9 ; PTSD (post- traumatic stress disorder) F43.10 and Panic disorder with agoraphobia F40.01 [facility] [address], [place] [address]- 9772 Dec, Chronic obstructive pulmonary disease, unspecified COPD type J44.9 ; Tremor R25.1 and Anxiety F41.9 [facility] [id number] [place] [address]- 2353 Dec, [facility] [id number] [place] [address] 23021- 5613 Nov, Tremors of nervous system R25.1 and Cramping of feet R25.2 [facility] [id number] [place] [address] 08835- 6973 Nov, [facility] [id number] [place] [address] 81621- 5288 Nov, [facility] [id number] [place] [address] 48066[address] Oct, Chronic obstructive pulmonary disease, unspecified J44.9 [facility] [id number] [address] Oct, [facility] [id number] [place] [address]- [address] Oct, Tremor R25.1 [facility] [id number], [place] [address] Oct, Bipolar I disorder with depression F31.9 ; Diabetes E11.9 ; PTSD (post-traumatic stress disorder) F43.10 and Panic disorder with agoraphobia F40.01 [facility] [id number] [address] Oct, Mood disorder F39 [facility] [id number] [place] [address]- [address] September, [facility] [id number], [place] [address] September, Diabetes E11.9 ; Bipolar I disorder with depression F31.9 ; PTSD (post-traumatic stress disorder) F43.10 and Panic disorder with agoraphobia F40.01 [facility] [id number] [place] [address] September, Mood disorder F39 ; Schizoaffective disorder, unspecified type F25.9 ; Arthritis M19.90 ; Tremor R25.1 ; Acute non-recurrent frontal sinusitis J01.10 and Blood in stool K92.1 [facility] [facility] [id number] [place] [address] 22350- 9892 September, [place] [address] 462764- 4321 September, Chronic obstructive pulmonary disease, unspecified J44.9 [place] [address] 07005- 2016 September, Diabetes E11.9 [place] [address] 85713- 3937 Aug, Other bipolar disorder F31.89 and Anxiety disorder, unspecified F41.9 [place] [id number] [place] [address] 10888- 1017 Aug, [place] [id number] [place] [address] 02151- 3523 Aug, Diabetes E11.9 [place] [id number] [place] [address] 64601- 2464 18 Aug, 2015 [place] [id number] [place] [address] 41825- 3558 14 Aug, 2015 Diabetes E11.9 ; Fatigue R53.83 and Dizziness R42 [place] [id number] [place] [address] 34782- 0414 13 Aug, 2015 Other bipolar disorder F31.89 [place] [id number] [place] [address] 27023- 1013 07 Aug, 2015 Generalized anxiety disorder F41.1 [facility] [id number] [place] [address] 89344- 4856 Aug, Other bipolar disorder F31.89 and Anxiety disorder, unspecified F41.9 [facility] [id number] [place] [address] 43018- 9736 Aug, [facility] [id number] [place] [address] 00036- 1101 Jul, [facility] [id number] [place] [address] 62538- 6947 Jul, [facility] [id number] [place] [address] 25688- 3576 Jul, Bronchitis J40 [facility] [id number] [place] [address] 73996- 5500 Jul, Anxiety disorder F41.9 [facility] [id number] [place] [address] 02616- 9505 Jul, Other bipolar disorder F31.89 and Anxiety disorder, unspecified F41.9 [facility] [id number] [place] [address] 60963- 9042 Jul, Other bipolar disorder F31.89 and Fibromyalgia M79.7 [facility] [id number] [place] [address] 53840- 8859 Jul, [facility] [id number] [place] [address] 31557- 6504 Jul, [facility] [id number] [place] [address] 12917- 5626 Jul, [facility] [id number] [place] [address] 29280- 1204 Jul, Other bipolar disorder F31.89 and Anxiety disorder, unspecified F41.9 [facility] [id number] [place] [address] 03717- 0158 Jun, GERD (gastroesophageal reflux disease) K21.9 [facility] [id number] [place] [address] 51040- 7193 Jun, [facility] [address] 21294- 0756 May, [facility] [id number] [place] [address] 45361- 2908 May, Diabetes E11.9 ; Back pain M54.9 ; GERD (gastroesophageal reflux disease) K21.9 ; Hypertension I10 and Peripheral neuropathy G62.9 [facility] [id number] [place] [address] 44994- 1477 Mar, [facility] [address] 16681- 6554 Mar, [facility] [id number] [place] [address] 51337- 8024 Mar, Acute sinusitis J01.90 and Otitis media, left H66.92 [facility] [id number] [place] [address] 96175- 6367 Feb, [facility] [id number] [place] [address] 98201- 8698 Feb, [facility] [id number] [place] [address] 77963- 9022 Feb, [facility] [id number] [place] [address] 31597- 4307 Feb, [facility] [id number] [place] [address] 02906- 8420 29 Jan, 2015 [facility] [id number] [place] [address] 67197- 0271 24 Jan, 2015 Diabetes 250.00 and Back pain 724.5 [facility] [id number] [place] [address] 64560- 7026 Jan, [facility] [id number] [place] [address] 55899- 8572 Dec, Diabetes 250.00 ; Benign essential hypertension 401.1 and Allergic rhinitis 477.9 [facility] [address] 10082- 8797 Dec, [facility] [id number] [place] [address] 38324- 9956 Dec, [facility] [address] 80132- 9432 Dec, Psychosis 298.9 [facility] [address] 51097- 7918 Dec, Medication side effect 995.20 and Generalized anxiety disorder 300.02 [facility] [address] 03281- 9942 Dec, Acquired cognitive dysfunction 294.9 [facility] [address] 19583- 6161 Dec, [facility] [id number] [place] [address] 21465- 9250 Dec, Unspecified myalgia and myositis 729.1 and Generalized anxiety disorder 300.02 [facility] [id number] [place] [address] 09772- 5059 Nov, [facility] [id number] [place] [address] 78415- 3510 Nov, [facility] [id number] [place] [address] 74068- 2613 Nov, [facility] [id number] [place] [address] 16235- 6285 Nov, Upper respiratory infection 465.9 and Chronic airway obstruction, not elsewhere classified 496 [facility] [id number] [place] [address] 81439- 2578 Nov, Hyponatremia 276.1 [facility] [address] 30519- 6302 Oct, [facility] [address] [address]- 4613 Oct, [facility] [address] [address]- 8963 Oct, [facility] [address] [address]- 5612 Oct, [facility] [id number] [place] [address] 86129- 9085 Oct, Hyponatremia 276.1 [facility] [id number] [place] [address] 74821- 6294 Oct, [facility] [id number] [place] [address] 86492- 4004 Oct, [facility] [id number] [place] [address] 81814- 6587 Oct, Generalized anxiety disorder 300.02 [facility] [address] [address]- 8874 Oct, Generalized anxiety disorder 300.02 and Diabetes 250.00 [facility] [address] [address]- 0489 Aug, [facility] [address] [place] [address]- 7654 Aug, [facility] [address] [address]- 1426 Jul, [facility] [address] [place] [address]- 4129 Jul, [facility] [address] [place] [address]- 7264 Jun, [facility] [address] [place] [address]- 9810 Jun, [facility] [address] [address]- 2606 Jun, [facility] [address] [id number] [place] [address]- 9921 Jun, [facility] [address] [id number] [place] [address]- 3388 Jun, [facility] [address] [facility] [id number] [place] [address]- 9500 May, [facility] [address] [id number] [place] [address]- 5425 May, [facility] [address] [id number] [place] [address]- 9602 Apr, [facility] [address] [id number] [place] [address]- 6844 Apr, [facility] [address] [facility] [id number] [place] [address]- 1846 Apr, [facility] [address] [id number] [place] [address]- 8630 Apr, [facility] [address] [id number] [place] [address]- 1353 Apr, [facility] [address] [facility] [id number] [place] [address]- 8206 Apr, [facility] [address] [id number] [address]- 4213 Apr, [facility] [place] [facility] [address] [id number], [place] [address]- 2840 Apr, [facility] [place] [facility] [address] [id number], [place] [address]- 4543 Feb, [facility] [place] [facility] [address] [id number] [place] [address]- 5288 Feb, [facility] [place] [facility] [address] [facility] [id number] [place] [address]- 0020 Jan, [facility] [place] [facility] [address] [id number] [place] [address]- 2546 Jan, [facility] [address] [id number] [place] [address]- 3652 Dec, [facility] [place] [facility] [address] [id number] [place] [address]- 2546 Dec, [facility] [address] [id number] [place] [address]- 9616 Dec, [facility] [address] [id number] [place] [address]- 6663 Nov, [facility] [address] [id number] [place] [address]- 4886 Nov, [facility] [address] [id number] [place] [address]- 7196 Nov, [facility] [address] [id number] [place] [address]- 1648 Oct, [facility] [address] [id number] [place] [address]- 0827 Oct, [facility] [place] [facility] [address] [id number] [place] [address]- 6571 Oct, [facility] [address] [id number] [place] [address]- 3363 September, [facility] [place] [facility] [address] [id number] [place] [address]- 6016 September, [facility] [place] [facility] [address] [id number] [place] [address]- 9746 September, [facility] [place] [facility] [address] [id number] [place] [address]- 1606 Aug, [facility] [place] [facility] [address] [id number] [place] [address]- 2546 Aug, [facility] [place] [facility] [address] [id number] [place] [address]- 5464 Aug, [facility] [address] [id number] [place] [address]- 0184 16 Aug, 2011 [facility] [place] [facility] [address] [id number] [place] [address]- 0547 Jul, [facility] [place] [facility] [address] [id number] [place] [address]- 3928 Jun, [facility] [place] [facility] [address] [id number] [place] [address]- 1023 14 Jun, 2011 [facility] [place] [facility] [address] [id number] [place] [address]- 6781 13 Jun, 2011 [facility] [place] [facility] [address] [id number] [place] [address]- 0553 07 Jun, 2011 [facility] [place] [facility] [address] [id number] [place] [address]- 1662 Jun, [facility] [place] [facility] [address] [id number] [place] [address]- 0016 May, [facility] [place] [facility] [address] [id number] [place] [address]- 8551 May, [facility] [place] [facility] [address] [id number] [place] [address]- 8795 May, [facility] [place] [facility] [address] [id number] [place] [address]- 4375 May, [facility] [place] [facility] [address] [id number] [place] [address]- 0041 Apr, [facility] [place] [facility] [address] [id number] [place] [address]- 6624 Apr, [facility] [place] [facility] [address] [id number] [place] [address]- 4699 05 Apr, 2011 [facility] [place] [facility] [address] [id number] [place] [address]- 2087 Mar, [facility] [place] [facility] [address] [place] [address]- 8176 11 Mar, 2011 [facility] [address] [facility] [id number], [place] [address]- 8546 Mar, [facility] [address] [facility] [id number], [place] [address]- 5156 13 Feb, 2011 [facility] [address], [place] [address]- 8955 13 Feb, 2011 [facility] [address] [facility] [id number], [place] [address]- 8924 13 Feb, 2011 [facility] [id number] [place] [address] 38750- 4624 Nov, [facility] [address] [address]- 1466 September, [facility] [id number] [place] [address] 76316- 8307 Aug, [facility] [address] [address]- 6000 Jul, [facility] [address], [place] [address]- 7887 May, [facility] [address] [place] [address]- 0013 Apr, [facility] [address], [place] [address]- 9636 Apr, [facility] [id number] [address]- 4402 Apr, [facility] [address] [place] [address]- 4563 Apr, [facility] [address] [place] [address]- 8026 Apr, IMMUNIZATIONS No Known Immunizations SOCIAL HISTORY Never Assessed REASON FOR VISIT Controlled Med Refill - 06/17/17 PLAN OF CARE VITAL SIGNS MEDICATIONS Medication Instructions Dosage Frequency Start Date End Date Duration Status Aurora 7.5-325 MG Orally 3 times a day 1 tablet as needed 8h Jun, 28 days Active RESULTS No Results [...]
--- OUTSIDE RECORDS SUMMARY | 2017-11-18 07:10 | XMS REPORT ---
Author Author WHIT GANDHI [facility] Address [address] [place] [address] Care Team Providers Care Maintenance Engineer Name Role Phone WHIT GANDHI Unavailable PROBLEMS Type Condition ICD9-CM Code [id number] Code Onset Dates Condition Status SNOMED Code Problem Back pain M54.9 Active 870560770 Problem GERD (gastroesophageal reflux disease) K21.9 Active 550396534 Problem Diabetes E11.9 Active 23269517 Problem Hypertension I10 Active 45689697 Problem Acute non-recurrent maxillary sinusitis J01.00 Active 28396569 Problem Anxiety disorder, unspecified F41.9 Active 404995802 Problem Bipolar 1 disorder, depressed, partial remission F31.75 Active 45928980 Problem Other bipolar disorder F31.89 Active 35480080 Problem Mild persistent asthma without complication J45.30 Active 981434000 Problem Panlobular emphysema J43.1 Active 2525402 Problem Moderate persistent asthma without complication J45.40 Active 245177313 Problem Irritable bowel syndrome with constipation K58.1 Active 968633019 Problem Arthritis M19.90 Active 4009309 Problem Chronic obstructive pulmonary disease, unspecified J44.9 Active 69697662 Problem Panic disorder with agoraphobia F40.01 Active 96558198 Problem Fibromyalgia M79.7 Active 21275815 Problem Migraine without aura and without status migrainosus, not intractable G43.009 Active 717283497 Problem Akathisia G25.71 Active 798072294 Problem Fibrocystic disease of right breast N60.11 Active 43950500 Problem Fibrocystic disease of left breast N60.12 Active 49935051 Problem Lumbago with sciatica, right side M54.41 Active 877596691 Problem Bipolar 1 disorder, depressed, moderate F31.32 Active 77287888 Problem Other chronic pain G89.29 Active 56845050 Problem Lumbago with sciatica, left side M54.42 Active 926414145 Problem Attention deficit hyperactivity disorder (ADHD), predominantly inattentive type F90.0 Active 64202393 Problem Bipolar I disorder with depression F31.9 Active 07796549 Problem Chronic post-traumatic stress disorder (PTSD) F43.12 Active 371098019 Problem Bipolar affective disorder, remission status unspecified F31.9 Active 02045107 ALLERGIES Substance Reaction Event Type Date Status Penicillin V Potassium Unknown Drug Allergy Oct, Active Effexor anaphylaxis Drug Allergy Oct, Active Darvocet-N 50 Unknown Drug Allergy Oct, Active Cefdinir Swelling Drug Allergy Oct, Active Benadryl vomiting/swelling Drug Allergy Oct, Active ENCOUNTERS Encounter Location Date Diagnosis [place] [address] 47946- 6809 Aug, [place] [address] 61889- 2861 Aug, [place] [address] 34642- 1267 Jul, [place] [address] 19887- 7068 Jul, Mild persistent asthma without complication J45.30 [place] [address] 76807- 8983 19 Jul, 2017 Mild persistent asthma without complication J45.30 [place] [address] [place] [id number] [place] [address] 45299- 1508 15 Jul, 2017 Bipolar affective disorder, remission status unspecified F31.9 ; Diabetes E11.9 and Irritable bowel syndrome with constipation K58.1 [place] [address] [place] [id number] [place] [address] 57647- 4586 13 Jul, 2017 [place] [address] 05993- 3093 09 Jul, 2017 [place] [address] [place] [id number] [place] [address] 16292- 7335 08 Jul, 2017 Frequent headaches R51 [place] [address] 72764- 6951 Jul, [facility] [address] [place] [id number] [place] [address] 78711- 5795 Jul, [facility] [address] [place] [id number] [place] [address] 46076- 4403 Jul, [facility] [address] [place] [id number] [place] [address] 22124- 8944 Jul, Frequent headaches R51 ; Fibrocystic disease of left breast N60.12 ; Fibrocystic disease of right breast N60.11 and Diabetes E11.9 [place] [address] [place] [id number] [place] [address] 84668- 3276 Jul, [place] [address] [place] [id number] [place] [address] 33659- 2887 Jul, [place] [address] [place] [id number] [place] [address] 77230- 3232 21 Jun, 2017 Exudative tonsillitis J03.90 [place] [address] [place] [id number] [place] [address] 48653- 3827 20 Jun, 2017 [place] [address] [place] [id number] [place] [address] 83451- 7751 19 Jun, 2017 [place] [address] [place] [id number] [place] [address] 04288- 9599 15 Jun, 2017 Mild persistent asthma without complication J45.30 ; Chronic obstructive pulmonary disease, unspecified COPD type J44.9 and Exudative tonsillitis J03.90 [place] [id number] [place] [address] 78648- 0156 13 Jun, 2017 Encounter for immunization Z23 [place] [address] [place] [id number] [place] [address] 71202- 3738 Jun, [place] [address] [place] [id number] [place] [address] 79789- 7433 12 Jun, 2017 [place] [address] [place] [id number] [place] [address] 12727- 8578 Jun, [facility] [address] [place] [id number] [place] [address] 23737 -8341 Jun, Tonsillitis J03.90 [facility] [address] [place] [id number] [place] [address] 48585- 9454 Jun, [facility] [address] 06540- 2809 Jun, Acute non-recurrent maxillary sinusitis J01.00 [place] [address] 82058- 1460 Jun, [facility] [address] 22032- 8745 May, [facility] [address] 53367- 1147 May, [facility] [address] 74182- 5282 May, GERD (gastroesophageal reflux disease) K21.9 [place] [address] 77538- 9616 May, Migraine without aura and without status migrainosus, not intractable G43.009 [facility] [address] [place] [id number] [place] [address] 71996- 4436 May, [place] [address] 11542- 8009 May, [place] [address] [place] [id number] [place] [address] 33797- 9971 May, Panlobular emphysema J43.1 and Acute non-recurrent maxillary sinusitis J01.00 [facility] [address] [place] [id number] [place] [address] 45589- 1610 May, Bipolar 1 disorder, depressed, moderate F31.32 ; Panic disorder with agoraphobia F40.01 and Akathisia G25.71 [place] [address] [place] [id number] [place] [address] 48523- 8057 Apr, [facility] [address] 09155- 9670 14 Apr, 2017 [facility] [address] [place] [id number] [place] [address] 66832- 2886 13 Apr, 2017 Acute non-recurrent maxillary sinusitis J01.00 [facility] [address] 49468- 0800 07 Apr, 2017 Panlobular emphysema J43.1 [place] [address] 45919- 0437 Apr, [facility] [address] [place] [id number] [place] [address] 62753 -7590 04 Apr, 2017 Exudative tonsillitis J03.90 and Sore throat J02.9 [place] [address] 22212- 8498 17 Mar, 2017 [facility] [address] [place] [id number] [place] [address] 08717- 5818 15 Mar, 2017 Acute non-recurrent maxillary sinusitis J01.00 [facility] [address] [place] [id number] [place] [address] 16560- 8533 13 Mar, 2017 [place] [address] [place] [id number] [place] [address] 11734- 6376 Mar, Panlobular emphysema J43.1 and Diabetes E11.9 [facility] [address] [place] [id number] [place] [address] 08108- 5126 Mar, [facility] [address] [place] [id number] [place] [address] 43836 -1602 24 Feb, 2017 Wheezing R06.2 and Acute recurrent pansinusitis J01.41 [facility] [address] [place] [id number] [place] [address] 84352- 5117 Feb, [facility] [address] [place] [id number] [place] [address] 89115- 9036 16 Feb, 2017 Acute non-recurrent maxillary sinusitis J01.00 [facility] [address] [place] [id number] [place] [address] 5112 16 Feb, 2017 Chronic obstructive pulmonary disease, unspecified J44.9 [facility] [address] [place] [id number] [place] [address] 988643- 7472 02 Feb, 2017 Hypoxemia R09.02 and Chronic obstructive pulmonary disease, unspecified J44.9 [place] [address] [place] [id number] [place] [address] 128226- 9564 28 Jan, 2017 Bipolar 1 disorder, depressed, moderate F31.32 ; Panic disorder with agoraphobia F40.01 ; Chronic post-traumatic stress disorder (PTSD ) F43.12 ; Diabetes E11.9 and Moderate persistent asthma without complication J45.40 [place] [address] 46974- 8132 22 Jan, 2017 [place] [address] [place] [id number] [place] [address] 20067- 7606 19 Jan, 2017 Acute non-recurrent maxillary sinusitis J01.00 [facility] [address] [place] [id number] [place] [address] 05555- 9300 18 Jan, 2017 [facility] [address] [place] [id number] [place] [address] 04018- 7624 18 Jan, 2017 [facility] [address] [place] [id number] [place] [address] 47259- 254 12 Jan, 2017 Moderate persistent asthma without complication J45.40 and Hypoxemia R09.02 [place] [address] 227272- 5413 11 Jan, 2017 Moderate persistent asthma without complication J45.40 and Hypoxemia R09.02 [place] [address] [place] [id number] [place] [address] 98575- 8118 11 Jan, 2017 [facility] [address] 38657- 6005 Dec, Acute non-recurrent maxillary sinusitis J01.00 [facility] [id number] [place] [address] 74825- 6163 Dec, Chronic obstructive pulmonary disease, unspecified J44.9 [facility] [address] [place] [id number] [place] [address] 79941- 0582 Dec, [facility] [address] [place] [id number] [place] [address] 60499- 6704 Dec, Mild persistent asthma without complication J45.30 and Other chronic pain G89.29 [facility] [address] [place] [id number] [place] [address] 35370- 8344 Nov, [facility] [address] [place] [id number] [place] [address] 43438- 8287 Nov, Acute non-recurrent maxillary sinusitis J01.00 [facility] [address] [place] [id number] [place] [address] 76909- 1225 Nov, [facility] [address] [place] [id number] [place] [address] 49651- 4104 Nov, [facility] [address] [place] [id number] [place] [address] 63214- 7082 Oct, [facility] [address] [place] [id number] [place] [address] 08857- 9490 Oct, Bipolar 1 disorder, depressed, partial remission F31.75 ; Panic disorder with agoraphobia F40.01 and Chronic post-traumatic stress disorder (PTSD) F43.12 [facility] [id number] [place] [address] 76659- 8433 Oct, Acute non-recurrent maxillary sinusitis J01.00 [facility] [id number] [place] [address] 19694- 5799 Oct, [facility] [address] [place] [id number] [place] [address] 37212- 3175 Oct, Diabetes E11.9 [facility] [id number] [address]- 0185 September, Diabetes E11.9 [facility] [address] [place] [id number] [place] [address] 92677- 3047 September, Diabetes E11.9 and Sinus tachycardia R00.0 [facility] [address] [place] [id number] [place] [address] 25207- 7293 September, [facility] [address] [place] [id number] [place] [address] 53466- 0615 September, [facility] [address] [place] [id number] [place] [address] 52881- 5291 Aug, Diabetes E11.9 and Lumbago with sciatica, right side M54.41 [place] [address] [place] [id number] [place] [address] 93466- 0625 Aug, [place] [address] [place] [id number] [place] [address] 33184- 7812 Jul, Bipolar 1 disorder, depressed, moderate F31.32 ; Panic disorder with agoraphobia F40.01 and Chronic post-traumatic stress disorder ( PTSD) F43.12 [place] [address] [place] [id number] [place] [address] 21537- 1089 Jul, Sore throat J02.9 [place] [id number] [address]- 0469 Jul, [facility] [address] [place] [id number] [place] [address] 42203- 8581 Jul, [facility] [id number] [address]- 9421 Jul, [place] [address] [place] [id number] [place] [address] 85981- 3706 Jul, [facility] [id number] [address]- 0651 Jul, Sore throat J02.9 and Pharyngitis, unspecified etiology J02.9 [facility] [id number] [address]- 6191 Jun, [facility] [address] [place] [id number] [place] [address] 39412- 6288 23 Jun, 2016 Diabetes E11.9 [facility] [address] [place] [id number] [place] [address] 01815- 1641 Jun, [facility] [address] [place] [id number] [place] [address] 33812- 4413 Jun, [facility] [address] [place] [id number] [place] [address] 76425- 9619 Jun, [facility] [address] [place] [id number] [place] [address] 49307- 9714 Jun, [facility] [address] [place] [id number] [place] [address] 94785- 2106 Jun, [facility] [id number] [place] [address] 72346- 9679 Jun, [facility] [address] [place] [id number] [place] [address] 10205- 6786 Jun, [facility] [id number] [place] [address] 20283- 6000 Jun, [facility] [id number] [place] [address] 17643- 8931 May, Diabetes E11.9 ; Other chronic pain G89.29 ; Acute recurrent maxillary sinusitis J01.01 ; Bipolar I disorder with depression F31.9 and Anxiety disorder, unspecified F41.9 [facility] [id number] [place] [address] 53091- 9636 May, [facility] [id number] [address]- 8931 May, Diabetes E11.9 ; Bipolar I disorder with depression F31.9 ; Anxiety disorder, unspecified F41.9 ; Other chronic pain G89.29 and Acute recurrent maxillary sinusitis J01.01 [place] [address] [place] [id number] [place] [address] 67449- 0714 May, [place] [address] [place] [id number] [place] [address] 15252- 0475 May, Attention deficit hyperactivity disorder (ADHD), predominantly inattentive type F90.0 [place] [address] [place] [id number] [place] [address] 017381- 7524 May, [place] [address] [place] [id number] [place] [address] 01935- 9860 Apr, Attention deficit hyperactivity disorder (ADHD), predominantly inattentive type F90.0 and Non-seasonal allergic rhinitis due to other allergic trigger J30.89 [place] [address] [place] [id number] [place] [address] 34297- 3360 Apr, Bipolar 1 disorder, depressed, moderate F31.32 ; Panic disorder with agoraphobia F40.01 and Chronic post-traumatic stress disorder ( PTSD) F43.12 [place] [address] [place] [id number] [place] [address] 30435- 9508 06 Apr, 2016 Dental examination Z01.20 [place] [id number] [place] [address] 26088- 8613 Mar, [place] [address] [place] [id number] [place] [address] 18915- 9464 Mar, [place] [address] [place] [id number] [place] [address] 00839- 4892 Mar, Bipolar I disorder with depression F31.9 and Anxiety disorder, unspecified F41.9 [place] [address] [place] [id number] [place] [address] 01759- 0832 08 Mar, 2016 Panic disorder with agoraphobia F40.01 ; Bipolar 1 disorder , depressed, moderate F31.32 and Chronic post-traumatic stress disorder (PTSD) F43.12 [place] [address] [place] [id number] [place] [address] 43606- 3576 Mar, [facility] [address] [place] [id number] [place] [address] 32927- 3912 Mar, Dental caries K02.9 [facility] [address] [place] [id number] [place] [address] 55280- 5801 24 Feb, 2016 Lumbago with sciatica, left side M54.42 ; Lumbago with sciatica, right side M54.41 and Other chronic pain G89.29 [place] [address] [place] [id number] [place] [address] 71476- 4568 17 Feb, 2016 [place] [address] 07139- 7404 14 Feb, 2016 [place] [address] 79291- 5029 13 Feb, 2016 Bipolar I disorder with depression F31.9 ; PTSD (post- traumatic stress disorder) F43.10 and Mood disorder F39 [place] [address] [place] [id number] [place] [address] 61165- 8525 13 Feb, 2016 [place] [address] [place] [id number] [place] [address] 97467- 1007 11 Feb, 2016 Dental examination Z01.20 [place] [address] [place] [id number] [place] [address] 30406- 8507 07 Feb, 2016 [facility] [address] [place] [id number] [place] [address] 58100 -0464 03 Feb, 2016 Acute bronchitis, unspecified organism J20.9 [facility] [address] [place] [id number] [place] [address] 77581- 5269 26 Jan, 2016 Mood disorder F39 ; Migraine without aura and without status migrainosus, not intractable G43.009 ; Irritable bowel syndrome, unspecified type K58.9 ; Diabetes E11.9 and Encounter for immunization Z23 [place] [address] 12921- 1448 Jan, [facility] [id number] [address]- 7955 Jan, [facility] [address] [place] [id number] [address]- 7852 Jan, [facility] [id number] [place] [address]- 6799 Jan, [facility] [address] [place] [id number] [place] [address] 55638- 9304 Jan, [facility] [id number] [place] [address] 44635- 8761 Dec, Bipolar I disorder with depression F31.9 ; PTSD (post- traumatic stress disorder) F43.10 and Panic disorder with agoraphobia F40.01 [facility] [id number] [address]- 2996 Dec, Chronic obstructive pulmonary disease, unspecified COPD type J44.9 ; Tremor R25.1 and Anxiety F41.9 [facility] [id number] [address]- 8385 Dec, [facility] [address] [place] [id number] [place] [address] 95339- 5273 Nov, Tremors of nervous system R25.1 and Cramping of feet R25.2 [facility] [id number] [address]- 5146 Nov, [facility] [id number], [place] [address]- 1588 Nov, [facility] [id number] [place] [address] 92113- 6150 Oct, Chronic obstructive pulmonary disease, unspecified J44.9 [facility] [id number] [address]- 8952 Oct, [facility] [address] [place] [id number] [place] [address] 21098- 0548 Oct, Tremor R25.1 [facility] [id number] [place] [address] 72768- 6042 Oct, Bipolar I disorder with depression F31.9 ; Diabetes E11.9 ; PTSD (post-traumatic stress disorder) F43.10 and Panic disorder with agoraphobia F40.01 [place] [address] [place] [id number] [place] [address] 86067- 9396 Oct, Mood disorder F39 [place] [address] [place] [id number] [place] [address] 09188- 1651 September, [place] [address] [place] [id number] [place] [address] 65006- 2839 September, Diabetes E11.9 ; Bipolar I disorder with depression F31.9 ; PTSD (post-traumatic stress disorder) F43.10 and Panic disorder with agoraphobia F40.01 [place] [address] [place] [id number] [place] [address] 04854- 7590 September, Mood disorder F39 ; Schizoaffective disorder, unspecified type F25.9 ; Arthritis M19.90 ; Tremor R25.1 ; Acute non-recurrent frontal sinusitis J01.10 and Blood in stool K92.1 [place] [id number] [place] [address] 12969- 9856 September, [place] [address] [place] [id number] [place] [address] 50071- 7425 September, Chronic obstructive pulmonary disease, unspecified J44.9 [place] [address] [place] [id number] [place] [address] 73884- 4032 September, Diabetes E11.9 [place] [address] [place] [id number] [place] [address] 55021- 7344 Aug, Other bipolar disorder F31.89 and Anxiety disorder, unspecified F41.9 [place] [address] [place] [id number] [place] [address] 42914- 3359 Aug, [facility] [address] [id number] [place] [address] 95448- 1111 19 Aug, 2015 Diabetes E11.9 [facility] [address] 70730- 4996 18 Aug, 2015 [facility] [address] [id number] [place] [address] 28139- 1918 14 Aug, 2015 Diabetes E11.9 ; Fatigue R53.83 and Dizziness R42 [facility] [address] [id number] [place] [address] [phone]- [phone] 13 Aug, 2015 Other bipolar disorder F31.89 [facility] [address] 29[address]- 6220 07 Aug, 2015 Generalized anxiety disorder F41.1 [facility] [id number] [place] [address] 90072- [phone] Aug, Other bipolar disorder F31.89 and Anxiety disorder, unspecified F41.9 [facility] [id number] [place] [address] [phone] Aug, [facility] [id number] [place] [address] [phone] 29 Jul, 2015 [facility] [id number] [place] [address] [phone]- [phone] 24 Jul, 2015 [facility] [id number] [place] [address] [phone]- [phone] Jul, Bronchitis J40 [facility] [id number] [place] [address] [phone]- [phone] Jul, Anxiety disorder F41.9 [facility] [id number] [place] [address] [phone]- 1185 Jul, Other bipolar disorder F31.89 and Anxiety disorder, unspecified F41.9 [facility] [id number] [place] [address] 33827- 4522 Jul, Other bipolar disorder F31.89 and Fibromyalgia M79.7 [facility] [id number] [place] [address] 59902- 3841 Jul, [facility] [id number] [place] [address] [phone] Jul, [facility] [id number] [place] [address] [phone]- [phone] Jul, [facility] [id number] [place] [address] 27486- 3467 Jul, Other bipolar disorder F31.89 and Anxiety disorder, unspecified F41.9 [facility] [id number] [place] [address] 45147- [phone] Jun, GERD (gastroesophageal reflux disease) K21.9 [facility] [facility] [id number] [place] [address] 02950- 4483 Jun, [facility] [id number] [place] [address] 14939- 7507 May, [facility] [id number] [place] [address] 48407- 7523 May, Diabetes E11.9 ; Back pain M54.9 ; GERD (gastroesophageal reflux disease) K21.9 ; Hypertension I10 and Peripheral neuropathy G62.9 [facility] [id number] [place] [address] 00975- 3411 Mar, [facility] [id number] [place] [address] 05886- 7327 Mar, [facility] [id number] [place] [address] 12452- 7001 Mar, Acute sinusitis J01.90 and Otitis media, left H66.92 [facility] [id number] [place] [address] 80594- 4578 Feb, [facility] [id number] [place] [address] 95683- 1552 Feb, [id number] [address] 34[address] Feb, [facility] [id number] [place] [address] 82010- 5789 Feb, [facility] [id number] [place] [address] 73192- 0256 Jan, [facility] [id number] [place] [address] 89849- 6049 Jan, Diabetes 250.00 and Back pain 724.5 [facility] [id number] [place] [address] 36603- 2496 Jan, [facility] [id number] [place] [address] 65962- 4742 Dec, Diabetes 250.00 ; Benign essential hypertension 401.1 and Allergic rhinitis 477.9 [facility] [id number] [place] [address] 79491- 7809 Dec, [facility] [id number] [place] [address] 05266- 4267 Dec, [facility] [id number] [place] [address] 74981- 3285 Dec, Psychosis 298.9 [facility] [id number] [place] [address] 34398- 5066 Dec, Medication side effect 995.20 and Generalized anxiety disorder 300.02 [facility] [id number] [place] [address] 35461- 2993 Dec, Acquired cognitive dysfunction 294.9 [facility] [id number] [place] [address] 46481- 8231 Dec, [facility] [id number] [place] [address] 62687- 7307 Dec, Unspecified myalgia and myositis 729.1 and Generalized anxiety disorder 300.02 [facility] [id number] [address] 6080 Nov, [facility] [id number] [place] [address] 77929- 7346 Nov, [facility] [id number] [place] [address] 92993- 6097 Nov, [facility] [id number] [place] [address] 66541- 0642 Nov, Upper respiratory infection 465.9 and Chronic airway obstruction, not elsewhere classified 496 [facility] [id number] [place] [address] 05215- 2599 Nov, Hyponatremia 276.1 [facility] [id number] [place] [address] 35352- 1412 Oct, [facility] [id number] [place] [address] 96155- 1873 Oct, [facility] [id number] [place] [address] 96884- 7157 Oct, [facility] [id number] [place] [address] 54017- 6570 Oct, [facility] [id number] [place] [address] 09566- 7608 Oct, Hyponatremia 276.1 [facility] [id number] [place] [address] 49227- 8221 Oct, [facility] [id number] [place] [address] 32867- 2739 Oct, [facility] [id number] [place] [address] 18785- 0785 Oct, Generalized anxiety disorder 300.02 [facility] [id number] [place] [address] 77961- 3572 01 Oct, 2014 Generalized anxiety disorder 300.02 and Diabetes 250.00 [facility] [id number] [place] [address] 23747- 2808 14 Aug, 2014 [facility] [address] [id number] [place] [address]- 3518 13 Aug, 2014 [facility] [place] [facility] [address] [id number] [place] [address]- 9589 Jul, [facility] [place] [facility] [address] [facility] [id number] [place] [address]- 8818 Jul, [facility] [place] [facility] [address] [id number] [place] [address]- 9224 Jun, [facility] [place] [facility] [address] [id number] [place] [address]- 1529 Jun, [facility] [place] [facility] [address] [id number] [place] [address]- 2344 Jun, [facility] [address] [id number] [place] [address]- 2600 Jun, [facility] [place] [facility] [address] [id number] [place] [address]- 7882 Jun, [facility] [place] [facility] [address] [id number] [place] [address]- 8169 May, [facility] [place] [facility] [address] [id number] [place] [address]- 1330 May, [facility] [place] [facility] [address] [id number] [place] [address]- 4413 Apr, [facility] [place] [facility] [address] [id number] [place] [address]- 5650 20 Apr, 2013 [facility] [place] [facility] [address] [id number] [place] [address]- 2893 18 Apr, 2013 [facility] [place] [facility] [address] [id number] [place] [address]- 1974 18 Apr, 2013 [facility] [place] [facility] [address] [facility] [id number] [place] [address]- 9147 17 Apr, 2013 [facility] [place] [facility] [address] [id number] [place] [address]- 2546 Apr, [facility] [address] [id number] [place] [address]- 3756 Apr, [facility] [place] [facility] [address] [id number] [place] [address]- 2546 Apr, [facility] [place] [facility] [address] [id number] [place] [address]- 2546 Feb, [facility] [place] [facility] [address] [id number] [place] [address]- 2546 Feb, [facility] [place] [facility] [address] [id number] [place] [address]- 4346 Jan, [facility] [place] [facility] [address] [id number] [place] [address]- 2546 Jan, [facility] [place] [facility] [address] [id number] [place] [address]- 7057 Dec, [facility] [address] [id number] [place] [address]- 8409 Dec, [facility] [place] [facility] [address] [id number] [place] [address]- 9486 Dec, [facility] [address] [id number] [place] [address]- 3573 Nov, [facility] [place] [facility] [address] [id number] [place] [address]- 2546 Nov, [facility] [place] [facility] [address] [id number] [place] [address]- 2546 Nov, [facility] [place] [facility] [address] [id number] [place] [address]- 2546 Oct, [facility] [place] [facility] [address] [id number] [place] [address]- 2546 Oct, [facility] [place] [facility] [address] [id number] [place] [address]- 6991 Oct, [facility] [place] [facility] [address] [id number] [place] [address]- 6154 September, [facility] [place] [facility] [address] [id number] [place] [address]- 1910 September, [facility] [place] [facility] [address] [id number] [place] [address]- 6040 September, [facility] [place] [facility] [address] [id number] [place] [address]- 5751 Aug, [facility] [place] [facility] [address] [id number] [place] [address]- 0900 Aug, [facility] [place] [facility] [address] [id number] [place] [address]- 1182 Aug, [facility] [place] [facility] [address] [id number] [place] [address]- 2246 Aug, [facility] [place] [facility] [address] [id number] [place] [address]- 9277 Jul, [facility] [place] [facility] [address] [id number] [place] [address]- 6654 Jun, [facility] [place] [facility] [address] [id number] [place] [address]- 4234 14 Jun, 2011 [facility] [place] [facility] [address] [id number] [place] [address]- 3053 Jun, [facility] [place] [facility] [address] [id number], [place] [address]- 0078 07 Jun, 2011 [facility] [place] [facility] [address] [id number] [place] [address]- 6068 03 Jun, 2011 [facility] [place] [facility] [address] [id number] [place] [address]- 4374 13 May, 2011 [facility] [place] [facility] [address] [id number] [place] [address]- 0287 May, [facility] [place] [facility] [address] [id number] [place] [address]- 8248 09 May, 2011 [facility] [address] [id number] [place] [address]- 3353 May, [facility] [address] [id number] [place] [address]- 8176 Apr, [facility] [address] [id number] [place] [address]- 4493 Apr, [facility] [address] [id number] [place] [address]- 0864 Apr, [facility] [address] [id number] [place] [address]- 4753 Mar, [facility] [address] [id number] [place] [address]- 5262 Mar, [facility] [address] [id number] [place] [address]- 3871 Mar, [facility] [address] [id number] [place] [address]- 3985 Feb, [facility] [address] [id number] [place] [address]- 3573 Feb, [facility] [address] [id number] [place] [address]- 7971 Feb, [facility] [address] [id number] [place] [address]- 2864 Nov, [facility] [address] [id number] [place] [address]- 4790 September, [facility] [place] [facility] [address] [id number] [place] [address]- 6109 Aug, [facility] [place] [facility] [address] [id number] [place] [address]- 1996 14 Jul, 2010 [facility] [address] [id number] [place] [address]- 1501 May, [facility] [address] [facility] [id number], [place] [address]- 8258 Apr, [facility] [address] [facility] [id number] 4409 Apr, [facility] [address] [facility] [id number][place] 7829 Apr, [facility] [address] [facility] [id number][place] 6041 Apr, [facility] [address] [facility] [id number] 3177 Apr, IMMUNIZATIONS No Known Immunizations SOCIAL HISTORY Never Assessed REASON FOR VISIT DIABETES, F/u for new beta alexander , Wants emmett ears and throat looked at having pain and hard time swallowing. CBrumbackRN PLAN OF CARE Activity Details Follow Up 4 Weeks Reason:weak legs VITAL SIGNS Height 66 in 2016-11-05 Weight 113.2 lbs 2016-11-05 Temperature 98.3 degrees Fahrenheit 2016-11-05 Heart Rate 84 bpm 2016-11-05 Respiratory Rate 18 2016-11-05 BMI 18.27 kg/m2 2016-11-05 Blood pressure systolic 146 mmHg 2016-11-05 Blood pressure diastolic 78 mmHg 2016-11-05 MEDICATIONS Medication Instructions Dosage Frequency Start Date End Date Duration Status Glucosamine 1000 MG Orally Once a day 2 capsules 24h Active Metformin HCl 1000 MG Orally Twice a day 1 tablet with meals 12h Aug, 30 day(s) Active Cetirizine HCl 10 mg Orally Once a day 1 tablet 24h Apr, 30 day (s) Active Protonix 40 mg Orally Once a day 1 tablet 24h Active Probiotic - Orally once a day 24h Active Levemir FlexTouch 100 UNIT/ML Subcutaneous Once a day 19 units 24h September, 30 days Active Clonidine HCl 0.1 MG Orally 3 times a day 1 tablet 8h 23 Oct, 2015 28 days Active Benztropine Mesylate 0.5 MG Orally twice a day Q AM and 4pm for restlessness 1 tablet Mar, Active Flonase 50 mcg/actuation 1 spray in each nostril 24h Apr, Active ProAir HFA 108 (90 Base) MCG/ACT Inhalation 4 times a day 2 puffs as needed 6h Oct, Active BusPIRone HCl 15 MG Orally 3 times a day 1 tablet 8h Jan, 30 days Active Mucinex 600 MG Orally every 12 hrs 1 tablet as needed 12h Active Xopenex 1.25 MG/3ML Inhalation 4 times a day prn 3 ml Dec, Active Gas-X 80 mg Dec, Active Baclofen 20 MG Orally Three times a day 1 tablet with food or milk 8h 30 Active Insulin Pen Needle 32G X 6 MM as directed 24h Oct, Active Metoprolol Tartrate 25 MG Orally Twice a day 1 tablet with food 12h September 30 day(s) Active Odemqumsjk-FWZX-Aafawuxv 50-325-40 MG Orally every 6 hours as needed for headaches 1 capsule as needed Jun, 30 days Active Gabapentin 800 MG Orally Three times a day 1 tablet 8h Jul, Active Lisinopril 30 MG Orally Once a day 1 tablet 24h Active Lorazepam 2 MG Orally in the AM and noon and 4pm 1 tablet Jul, Active Adderall 20 MG Orally Once a day 1 tablet in the morning 24h Oct, 28 days Active Calcium 600 + D 600-200 MG-UNIT Active [place] 7.5-325 MG Orally 3 times a day 1 tablet as needed 8h Oct, 28 days Active Dicyclomine HCl 20 mg 1 tablet 6h Active Loxapine Succinate 10 mg Orally twice a day 1 capsule 12h September, 30 days Active MiraLax - Active Singulair 10 mg Orally Once a day 1 tablet in the evening 24h Oct, 30 day(s) Active Zocor 10 mg Orally Once a day 1 tablet in the evening 24h 30 Active Trazodone HCl 50 mg Orally Once a day 2 tablets 24h Jan, 30 days Active Ibuprofen 600 MG Orally 3 times a day 1 tablet 8h Active Lamictal 100 mg Orally 2 times a day 1 tablet 12h September, Active Amoxicillin 500 mg Orally 3 times a day 1 capsule 8h Oct, Nov, 10 day(s) Active Nebulizer 1 as directed Jul, Active FiberCon 625 MG Orally Four times a day 1 tablet as needed 6h Active Multivitamin Adult - Active RESULTS No Results PROCEDURES Procedure Date Ordered Result Body Site [facility] VISIT ESTABLISHED PATIENT November 05, 2016 INSTRUCTIONS MEDICATIONS ADMINISTERED No Known Medications MEDICAL [...]
--- OUTSIDE RECORDS SUMMARY | 2017-11-18 07:11 | XMS REPORT ---
Author Author WHIT GANDHI [facility] Address [address] [place] [address] Care Team Providers Care Medical Clerk Name Role Phone WHIT GANDHI Unavailable PROBLEMS Type Condition ICD9-CM Code [id number] Code Onset Dates Condition Status SNOMED Code Problem Chronic post-traumatic stress disorder (PTSD) F43.12 Active 452823444 Problem Attention deficit hyperactivity disorder (ADHD), predominantly inattentive type F90.0 Active 06828623 Problem Bipolar affective disorder, remission status unspecified F31.9 Active 90278188 Problem Panlobular emphysema J43.1 Active 9648445 Problem Diabetes E11.9 Active 31369303 Problem Moderate persistent asthma without complication J45.40 Active 158909948 Problem GERD (gastroesophageal reflux disease) K21.9 Active 865843120 Problem Back pain M54.9 Active 697287497 Problem Acute non-recurrent maxillary sinusitis J01.00 Active 21252904 Problem Bipolar I disorder with depression F31.9 Active 19513312 Problem Mild persistent asthma without complication J45.30 Active 168408426 Problem Bipolar 1 disorder, depressed, partial remission F31.75 Active 40754680 Problem Other bipolar disorder F31.89 Active 72888648 Problem Fibromyalgia M79.7 Active 67903703 Problem Hypertension I10 Active 23820040 Problem Anxiety disorder, unspecified F41.9 Active 450151856 Problem Lumbago with sciatica, left side M54.42 Active 565920584 Problem Lumbago with sciatica, right side M54.41 Active 825448410 Problem Panic disorder with agoraphobia F40.01 Active 17371218 Problem Other chronic pain G89.29 Active 51658020 Problem Nondependent tobacco use disorder 305.1 Active 159521222 Problem Chronic obstructive pulmonary disease, unspecified J44.9 Active 17835041 Problem Bipolar 1 disorder, depressed, moderate F31.32 Active 44551962 ALLERGIES No Information SOCIAL HISTORY Never Assessed PLAN OF CARE VITAL SIGNS MEDICATIONS Medication Instructions Dosage Frequency Start Date End Date Duration Status Adderall 10 MG Orally Once a day 1 tablet in the morning 24h Oct, 28 days Active RESULTS No Results PROCEDURES [...]
--- OUTSIDE RECORDS SUMMARY | 2017-11-18 07:11 | XMS REPORT ---
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 Name Role Phone KYE WILLSA Unavailable PROBLEMS Type Condition ICD9-CM Code WCS81-VN Code Onset Dates Condition Status SNOMED Code Problem GERD (gastroesophageal reflux disease) K21.9 Active 771981914 Problem Back pain M54.9 Active 663968930 Problem Diabetes E11.9 Active 92028739 Problem Hypertension I10 Active 38365639 Problem Anxiety disorder, unspecified F41.9 Active 750211953 Problem Other bipolar disorder F31.89 Active 98874014 Problem Fibromyalgia M79.7 Active 74687168 Problem Moderate persistent asthma without complication J45.40 Active 883833840 Problem Panic disorder with agoraphobia F40.01 Active 26598879 Problem Panlobular emphysema J43.1 Active 0847065 Problem Chronic obstructive pulmonary disease, unspecified J44.9 Active 69831271 Problem Akathisia G25.71 Active 985132298 Problem Fibrocystic disease of left breast N60.12 Active 40552255 Problem Migraine without aura and without status migrainosus, not intractable G43.009 Active 446983359 Problem Essential tremor G25.0 Active 834271385 Problem Schizoaffective disorder, bipolar type F25.0 Active 35645348 Problem Other chronic pain G89.29 Active 90476337 Problem Lumbago with sciatica, right side M54.41 Active 183672135 Problem Lumbago with sciatica, left side M54.42 Active 396474088 Problem Arthritis M19.90 Active 2242514 Problem Fibrocystic disease of right breast N60.11 Active 87731265 Problem Irritable bowel syndrome with both constipation and diarrhea K58.2 Active 36010373 Problem Irritable bowel syndrome with constipation K58.1 Active 918957915 Problem Bipolar affective disorder, remission status unspecified F31.9 Active 84407246 Problem Attention deficit hyperactivity disorder (ADHD), predominantly inattentive type F90.0 Active 05588555 Problem Bipolar 1 disorder, depressed, moderate F31.32 Active 02555309 Problem Chronic post-traumatic stress disorder (PTSD) F43.12 Active 663094267 Problem Bipolar 1 disorder, depressed, partial remission F31.75 Active 04930800 Problem Mild persistent asthma without complication J45.30 Active 413960915 Problem Bipolar I disorder with depression F31.9 Active 86307770 Problem Acute non-recurrent maxillary sinusitis J01.00 Active 50882737 ALLERGIES No Information ENCOUNTERS Encounter Location Date Diagnosis [place] [address] [address] Nov, [place] [address] 41540- 0291 Oct, [place] [address] 56377- 6414 September, Frequent headaches R51 [place] [address] 30842- 0408 September, Bilateral otitis media with effusion H65.93 ; Dizziness R42 and Essential tremor G25.0 [place] [address] 03863- 7529 September, Chronic obstructive pulmonary disease, unspecified COPD type J44.9 [place] [address] 30887- 0682 September, Chronic obstructive pulmonary disease, unspecified COPD type J44.9 [place] [address] 91716- 1689 September, Migraine without aura and without status migrainosus, not intractable G43.009 [place] [address] 47910- 8292 September, [place] [address] 31041- 6994 September, [place] [address] 20442- 4319 September, [place] [id number] [place] [address] 90342- 6321 September, Frequent headaches R51 [place] [address] [place] [id number] [place] [address] 28075- 3397 Aug, [place] [address] [place] [id number] [place] [address] 57104- 6705 Aug, Breast mass, right N63.10 [place] [address] [place] [id number] [place] [address] 65937- 0689 Aug, Breast lump N63.0 [place] [address] 84374- 2375 Aug, [place] [address] [place] [id number] [place] [address] 72876- 4115 Aug, Bipolar affective disorder, remission status unspecified F31.9 and Diabetes E11.9 [place] [address] [place] [id number] [place] [address] 25034- 4145 Aug, Diabetes E11.9 ; Schizoaffective disorder, bipolar type F25.0 ; Pharyngitis due to other organism J02.8 ; Panlobular emphysema J43.1 and Irritable bowel syndrome with both constipation and diarrhea K58.2 [place] [address] [place] [id number] [place] [address] 60363- 9875 Aug, Abnormal mammogram R92.8 [place] [id number] [place] [address] 99025- 2909 Aug, [place] [address] [place] [id number] [place] [address] 12165- 3259 Aug, Bipolar 1 disorder, depressed, moderate F31.32 ; Panic disorder with agoraphobia F40.01 and Chronic post-traumatic stress disorder ( PTSD) F43.12 [place] [address] [place] [id number] [place] [address] 91818- 6857 Aug, [place] [address] [address] 5[address] Aug, [facility] [address] [address]- 6445 Aug, [facility] [address] [address]- 5173 Jul, [facility] [address] [place] [id number] [place] [address] 13045- 5039 Jul, Mild persistent asthma without complication J45.30 [facility] [address] [address]- 3901 19 Jul, 2017 Mild persistent asthma without complication J45.30 [facility] [id number] [place] [address] 15653- 3168 15 Jul, 2017 Bipolar affective disorder, remission status unspecified F31.9 ; Diabetes E11.9 and Irritable bowel syndrome with constipation K58.1 [facility] [address] [address]- 5875 Jul, [facility] [address] [address]- 8382 Jul, [facility] [address] [address]- 7665 Jul, Frequent headaches R51 [facility] [address] [address]- 7628 Jul, [facility] [address] [address]- 9121 Jul, [facility] [address] [address]- 5383 Jul, [facility] [address] [address]- 0525 Jul, Frequent headaches R51 ; Fibrocystic disease of left breast N60.12 ; Fibrocystic disease of right breast N60.11 and Diabetes E11.9 [facility] [address] [place] [id number] [place] [address] 15119- 7642 Jul, [facility] [address] 65902- 3100 Jul, [facility] [address] [place] [id number] [place] [address] 82432- 7446 Jun, Exudative tonsillitis J03.90 [facility] [address] 07703- 9178 20 Jun, 2017 [facility] [address] [place] [id number] [place] [address] 85392- 5472 19 Jun, 2017 [facility] [address] [place] [id number] [place] [address] 79199- 3831 15 Jun, 2017 Mild persistent asthma without complication J45.30 ; Chronic obstructive pulmonary disease, unspecified COPD type J44.9 and Exudative tonsillitis J03.90 [facility] [address] [place] [id number] [place] [address] 49061- 7958 13 Jun, 2017 Encounter for immunization Z23 [facility] [address] [place] [id number] [place] [address] 01390- 6465 Jun, [facility] [address] [place] [id number] [place] [address] 43147- 1177 Jun, [facility] [address] [place] [id number] [place] [address] 31087- 0738 Jun, [facility] [id number] [place] [address] 30889 -2461 06 Jun, 2017 Tonsillitis J03.90 [facility] [address] [place] [id number] [place] [address] 24874- 3502 05 Jun, 2017 [facility] [address] [place] [id number] [place] [address] 92116- 3811 03 Jun, 2017 Acute non-recurrent maxillary sinusitis J01.00 [facility] [address] [place] [address]- 7283 Jun, [facility] [address] [place] [id number] [place] [address] 43662- 1383 May, [facility] [address] [place] [id number] [place] [address] 99512- 5393 May, [facility] [address] [place] [id number] [place] [address] 85366- 1862 May, GERD (gastroesophageal reflux disease) K21.9 [place] [address] [place] [id number] [place] [address] 84028- 0602 May, Migraine without aura and without status migrainosus, not intractable G43.009 [place] [address] [place] [id number] [place] [address] 37940- 0387 May, [place] [address] 02378- 0445 May, [place] [address] [place] [id number] [place] [address] 91443- 3060 May, Panlobular emphysema J43.1 and Acute non-recurrent maxillary sinusitis J01.00 [place] [address] [place] [id number] [place] [address] 84162- 8309 May, Bipolar 1 disorder, depressed, moderate F31.32 ; Panic disorder with agoraphobia F40.01 and Akathisia G25.71 [place] [address] [place] [id number] [place] [address] 01732- 6988 Apr, [facility] [address] [place] [id number] [place] [address] 90641- 5310 Apr, [place] [address] [place] [id number] [place] [address] 92730- 5633 Apr, Acute non-recurrent maxillary sinusitis J01.00 [place] [address] [place] [id number] [place] [address] 41794- 4040 Apr, Panlobular emphysema J43.1 [facility] [address] [place] [id number] [address]- 0879 Apr, [facility] [address] [place] [id number] [place] [address] 91290 -8651 04 Apr, 2017 Exudative tonsillitis J03.90 and Sore throat J02.9 [facility] [address] 75513- 1216 17 Mar, 2017 [facility] [address] [place] [id number] [place] [address] 27441- 0893 Mar, Acute non-recurrent maxillary sinusitis J01.00 [place] [address] 76884- 4071 Mar, [place] [address] [place] [id number] [place] [address] 74719- 0719 Mar, Panlobular emphysema J43.1 and Diabetes E11.9 [facility] [address] [place] [id number] [place] [address] 75899- 5381 Mar, [facility] [address] [place] [id number] [place] [address] 48408 -9633 Feb, Wheezing R06.2 and Acute recurrent pansinusitis J01.41 [facility] [address] [place] [id number] [place] [address] 74246- 5952 Feb, [facility] [address] [place] [id number] [place] [address] 87508- 2481 Feb, Acute non-recurrent maxillary sinusitis J01.00 [facility] [address] [place] [id number] [place] [address] 88873- 8318 Feb, Chronic obstructive pulmonary disease, unspecified J44.9 [facility] [address] [place] [id number] [place] [address] 43867- 4475 Feb, Hypoxemia R09.02 and Chronic obstructive pulmonary disease, unspecified J44.9 [facility] [address] [place] [address]- 6242 28 Jan, 2017 Bipolar 1 disorder, depressed, moderate F31.32 ; Panic disorder with agoraphobia F40.01 ; Chronic post-traumatic stress disorder (PTSD ) F43.12 ; Diabetes E11.9 and Moderate persistent asthma without complication J45.40 [facility] [address] [place] [id number] [place] [address] 490588- 4428 22 Jan, 2017 [facility] [address] 58355- 1628 19 Jan, 2017 Acute non-recurrent maxillary sinusitis J01.00 [facility] [address] [place] [id number] [place] [address] 66251- 1736 18 Jan, 2017 [facility] [address] [place] [id number] [place] [address] 86300- 3228 18 Jan, 2017 [facility] [address] 16907- 7418 Jan, Moderate persistent asthma without complication J45.40 and Hypoxemia R09.02 [facility] [address] [place] [id number] [place] [address] 50564 2546 11 Jan, 2017 Moderate persistent asthma without complication J45.40 and Hypoxemia R09.02 [facility] [address] [place] [id number] [place] [address] 00316 2544 Jan, [facility] [address] [place] [id number] [place] [address] 27734 2544 Dec, Acute non-recurrent maxillary sinusitis J01.00 [facility] [address] [place] [id number] [place] [address] 45290 2548 Dec, Chronic obstructive pulmonary disease, unspecified J44.9 [facility] [address] [place]- 8568 Dec, [facility] [address] 36039- 0148 Dec, Mild persistent asthma without complication J45.30 and Other chronic pain G89.29 [facility] [address] [place] [address] [address]- 8454 Nov, [facility] [address] [place] [id number] [place] [address] 41044- 6344 Nov, Acute non-recurrent maxillary sinusitis J01.00 [facility] [address] [place] [id number] [place] [address] 55777- 6849 Nov, [facility] [address] [place] [id number] [place] [address] 56384- 2151 Nov, [facility] [address] [place] [id number] [place] [address] 28896- 8267 Oct, [facility] [address] [place] [id number] [place] [address] 46053- 7559 Oct, Bipolar 1 disorder, depressed, partial remission F31.75 ; Panic disorder with agoraphobia F40.01 and Chronic post-traumatic stress disorder (PTSD) F43.12 [facility] [address] [place] [id number] [place] [address] 35432- 3051 Oct, Acute non-recurrent maxillary sinusitis J01.00 [facility] [address] [place] [id number] [place] [address] 75078- 1424 Oct, [facility] [address] [place] [id number] [place] [address] 74765- 3004 Oct, Diabetes E11.9 [facility] [address] [place] [id number] [place] [address] 26683- 7954 September, Diabetes E11.9 [facility] [address] [place] [id number] [place] [address] 09483- 9105 September, Diabetes E11.9 and Sinus tachycardia R00.0 [facility] [address] [place] [id number] [place] [address] 49863- 2642 September, [facility] [address] [place] [id number] [place] [address] 32372- 7552 September, [facility] [address], [place] [address]- 9660 Aug, Diabetes E11.9 and Lumbago with sciatica, right side M54.41 [facility] [address] [place] [id number] [place] [address] 93028- 7732 Aug, [facility] [address] [place] [id number] [place] [address] 87389- 0005 Jul, Bipolar 1 disorder, depressed, moderate F31.32 ; Panic disorder with agoraphobia F40.01 and Chronic post-traumatic stress disorder ( PTSD) F43.12 [facility] [address] [place] [id number] [place] [address] 98418- 9036 Jul, Sore throat J02.9 [facility] [address] [place] [id number] [place] [address] 00457- 6932 Jul, [facility] [address] [place] [id number] [place] [address] 35235- 7787 Jul, [facility] [address] [place] [id number] [place] [address] 83082- 0818 Jul, [facility] [address] [place] [id number] [place] [address] 58491- 8676 Jul, [facility] [address] [place] [id number] [place] [address] 75568- 0685 Jul, Sore throat J02.9 and Pharyngitis, unspecified etiology J02.9 [facility] [id number] [place] [address] 97508- 9400 Jun, [facility] [address] [place] [id number] [place] [address] 41398- 1896 Jun, Diabetes E11.9 [facility] [address] [place] [id number] [place] [address] 92474- 6596 Jun, [facility] [address] [place] [id number] [place] [address] 58461- 1889 Jun, [facility] [address], [place] [address]- 1566 Jun, [facility] [id number] [place] [address] 46381- 3804 Jun, [facility] [id number] [place] [address] 20452- 9950 Jun, [facility] [address] [place] [id number] [place] [address] 65995- 3406 Jun, [facility] [id number] [place] [address] 88980- 9600 Jun, [facility] [id number] [place] [address] 92856- 8229 Jun, [facility] [address] [place] [address] 29282- 2244 May, Diabetes E11.9 ; Other chronic pain G89.29 ; Acute recurrent maxillary sinusitis J01.01 ; Bipolar I disorder with depression F31.9 and Anxiety disorder, unspecified F41.9 [facility] [id number] [place] [address] 82483- 3291 May, [facility] [address], [place] [address]- 1071 May, Diabetes E11.9 ; Bipolar I disorder with depression F31.9 ; Anxiety disorder, unspecified F41.9 ; Other chronic pain G89.29 and Acute recurrent maxillary sinusitis J01.01 [facility] [address], [place] [address]- 9103 May, [facility] [address] [place] [id number] [place] [address] 70542- 1372 May, Attention deficit hyperactivity disorder (ADHD), predominantly inattentive type F90.0 [facility] [address] [place] [address] 48829- 2708 May, [place] [address] [place] [id number] [place] [address] 90136- 5017 Apr, Attention deficit hyperactivity disorder (ADHD), predominantly inattentive type F90.0 and Non-seasonal allergic rhinitis due to other allergic trigger J30.89 [place] [address] [place] [id number] [place] [address] 38590- 6395 Apr, Bipolar 1 disorder, depressed, moderate F31.32 ; Panic disorder with agoraphobia F40.01 and Chronic post-traumatic stress disorder ( PTSD) F43.12 [place] [address] [place] [id number] [place] [address] 51806- 4485 Apr, Dental examination Z01.20 [place] [address] 42291- 6084 Mar, [place] [address] 62886- 3324 Mar, [place] [address] 40002- 0859 Mar, Bipolar I disorder with depression F31.9 and Anxiety disorder, unspecified F41.9 [place] [address] 45844- 8772 Mar, Panic disorder with agoraphobia F40.01 ; Bipolar 1 disorder , depressed, moderate F31.32 and Chronic post-traumatic stress disorder (PTSD) F43.12 [place] [address] [place] [id number] [place] [address] 11613- 7920 Mar, [place] [address] [place] [id number] [place] [address] 38908- 5921 Mar, Dental caries K02.9 [place] [address] [place] [id number] [place] [address] 23073- 9654 Feb, Lumbago with sciatica, left side M54.42 ; Lumbago with sciatica, right side M54.41 and Other chronic pain G89.29 [place] [address] [place] [address]- 5595 17 Feb, 2016 [facility] [address] [place] [id number] [place] [address] 95630- 3192 14 Feb, 2016 [facility] [address] [place] [id number] [place] [address] 00158- 5890 Feb, Bipolar I disorder with depression F31.9 ; PTSD (post- traumatic stress disorder) F43.10 and Mood disorder F39 [facility] [address] [place] [id number] [place] [address] 92076- 3938 13 Feb, 2016 [facility] [address] [place] [id number] [place] [address] 92139- 8134 11 Feb, 2016 Dental examination Z01.20 [facility] [address] [place] [id number] [place] [address] 89271- 5946 07 Feb, 2016 [facility] [address] [place] [id number] [place] [address] 46997 -0505 03 Feb, 2016 Acute bronchitis, unspecified organism J20.9 [facility] [address] [place] [id number] [place] [address] 77458- 7823 26 Jan, 2016 Mood disorder F39 ; Migraine without aura and without status migrainosus, not intractable G43.009 ; Irritable bowel syndrome, unspecified type K58.9 ; Diabetes E11.9 and Encounter for immunization Z23 [facility] [address] [place] [id number] [place] [address] 28351- 2330 15 Jan, 2016 [facility] [address] [place] [id number] [place] [address] 45679- 2792 06 Jan, 2016 [facility] [address] [place] [id number] [place] [address] 20162- 9533 Jan, [facility] [address] [place] [id number] [place] [address] 07221- 9681 Jan, [facility] [address] [place] [id number] [place] [address] 32883- 4869 Jan, [facility] [address] [place] [id number] [place] [address] 12764- 7344 Dec, Bipolar I disorder with depression F31.9 ; PTSD (post- traumatic stress disorder) F43.10 and Panic disorder with agoraphobia F40.01 [facility] [address] [place] [id number] [place] [address] 58706- 0942 Dec, Chronic obstructive pulmonary disease, unspecified COPD type J44.9 ; Tremor R25.1 and Anxiety F41.9 [facility] [address] [place] [id number] [place] [address] 39278- 7308 Dec, [place] [address] [place] [id number] [place] [address] 14395- 5099 Nov, Tremors of nervous system R25.1 and Cramping of feet R25.2 [place] [address] [place] [id number] [place] [address] 41301- 7456 Nov, [facility] [address] [place] [id number] [place] [address] 71589- 4610 Nov, [facility] [address] [place] [id number] [place] [address] 47043- 2947 Oct, Chronic obstructive pulmonary disease, unspecified J44.9 [facility] [address] [place] [id number] [place] [address] 63871- 6389 Oct, [facility] [address] [place] [id number] [place] [address] 21615- 2900 Oct, Tremor R25.1 [facility] [address] [place] [id number] [place] [address] 46143- 5195 Oct, Bipolar I disorder with depression F31.9 ; Diabetes E11.9 ; PTSD (post-traumatic stress disorder) F43.10 and Panic disorder with agoraphobia F40.01 [facility] [id number] [place] [address] 05861- 1663 Oct, Mood disorder F39 [facility] [address] [place] [id number] [place] [address] 16335- 9519 September, [place] [address] [place] [id number] [place] [address] 65469- 2774 September, Diabetes E11.9 ; Bipolar I disorder with depression F31.9 ; PTSD (post-traumatic stress disorder) F43.10 and Panic disorder with agoraphobia F40.01 [place] [address] [place] [id number] [place] [address] 11842- 4781 September, Mood disorder F39 ; Schizoaffective disorder, unspecified type F25.9 ; Arthritis M19.90 ; Tremor R25.1 ; Acute non-recurrent frontal sinusitis J01.10 and Blood in stool K92.1 [place] [address] [place] [id number] [place] [address] [phone]- [phone] September, [place] [address] [place] [id number] [place] [address] [phone] 8721 September, Chronic obstructive pulmonary disease, unspecified J44.9 [place] [address] [place] [id number] [place] [address] 90083- 0238 September, Diabetes E11.9 [place] [address] [phone]- [address] Aug, Other bipolar disorder F31.89 and Anxiety disorder, unspecified F41.9 [place] [address] [place] [id number] [place] [address] [phone] 6281 Aug, [place] [address] [place] [id number] [place] [address] 21903- 4827 Aug, Diabetes E11.9 [place] [address] [place] [id number] [place] [address] 54517- 4260 Aug, [place] [id number] [place] [address] 58619- 2918 Aug, Diabetes E11.9 ; Fatigue R53.83 and Dizziness R42 [place] [address] [address]- 3382 Aug, Other bipolar disorder F31.89 [facility] [address] [address] 7[address] Aug, Generalized anxiety disorder F41.1 [facility] [id number] [place] [address] 72073- 3766 Aug, Other bipolar disorder F31.89 and Anxiety disorder, unspecified F41.9 [facility] [id number] [place] [address] 69978- 8196 Aug, [facility] [id number] [place] [address] 22422- 4782 Jul, [facility] [id number] [place] [address] 16305- 5154 Jul, [facility] [id number] [place] [address] 23158- 5666 Jul, Bronchitis J40 [facility] [id number] [place] [address] 80462- 1907 Jul, Anxiety disorder F41.9 [facility] [id number] [place] [address] 01690- 9481 Jul, Other bipolar disorder F31.89 and Anxiety disorder, unspecified F41.9 [facility] [address] [address] 0816 Jul, Other bipolar disorder F31.89 and Fibromyalgia M79.7 [facility] [address] [address] 2885 Jul, [facility] [address] [address] 0556 Jul, [facility] [id number] [place] [address] 80883- 1587 Jul, [facility] [address] [address]- 3006 Jul, Other bipolar disorder F31.89 and Anxiety disorder, unspecified F41.9 [facility] [id number] [place] [address] 25491- 3799 Jun, GERD (gastroesophageal reflux disease) K21.9 [facility] [id number] [place] [address] 54486- 4832 Jun, [facility] [id number] [place] [address] 89339- 0441 May, [facility] [id number] [place] [address] 92029- 0792 May, Diabetes E11.9 ; Back pain M54.9 ; GERD (gastroesophageal reflux disease) K21.9 ; Hypertension I10 and Peripheral neuropathy G62.9 [facility] [id number] [place] [address] 92475- 8814 Mar, [facility] [address] 64503- 5785 Mar, [facility] [address] 22435- 5076 Mar, Acute sinusitis J01.90 and Otitis media, left H66.92 [facility] [id number] [place] [address] 36939- 4360 Feb, [facility] [id number] [place] [address] 76602- 3005 Feb, [facility] [id number] [place] [address] 91500- 1068 15 Feb, 2015 [facility] [id number] [place] [address] 71056- 7153 13 Feb, 2015 [facility] [id number] [place] [address] 27736- 1485 29 Jan, 2015 [facility] [id number] [place] [address] 87600- 3615 24 Jan, 2015 Diabetes 250.00 and Back pain 724.5 [facility] [id number] [address]- 3122 Jan, [facility] [id number] [place] [address] 93245- 9578 Dec, Diabetes 250.00 ; Benign essential hypertension 401.1 and Allergic rhinitis 477.9 [facility] [id number] [place] [address] 61222- 9076 Dec, [facility] [id number] [place] [address] 98922- 0882 Dec, [facility] [id number] [place] [address] 81683- 9545 Dec, Psychosis 298.9 [facility] [id number] [place] [address] 06744- 6716 Dec, Medication side effect 995.20 and Generalized anxiety disorder 300.02 [facility] [id number] [place] [address] 43082- 1144 Dec, Acquired cognitive dysfunction 294.9 [facility] [id number] [place] [address] 26879- 2936 Dec, [facility] [id number] [place] [address] 06860- 8817 Dec, Unspecified myalgia and myositis 729.1 and Generalized anxiety disorder 300.02 [facility] [id number] [place] [address] 44859- 6778 Nov, [facility] [id number] [place] [address] 19030- 9381 Nov, [facility] [id number] [place] [address] 34218- 2803 Nov, [facility] [id number] [place] [address] 21888- 1910 Nov, Upper respiratory infection 465.9 and Chronic airway obstruction, not elsewhere classified 496 [facility] [address] [address] [address]- 9248 Nov, Hyponatremia 276.1 [facility] [address], [place] [address]- 8638 Oct, [facility] [id number] [address]- 1756 Oct, [facility] [id number] [place] [address] 85189- 7778 Oct, [facility] [id number] [address]- 6568 Oct, [facility] [id number] [place] [address] 37801- 0433 Oct, Hyponatremia 276.1 [facility] [address] [address]- 0091 Oct, [facility] [id number] [place] [address] 48122- 4837 Oct, [facility] [address] [address]- 4916 Oct, Generalized anxiety disorder 300.02 [facility] [address] [address]- 0019 Oct, Generalized anxiety disorder 300.02 and Diabetes 250.00 [facility] [address] [address]- 2740 Aug, [facility] [address], [place] [address]- 5224 Aug, [facility] [address] [address]- 5595 Jul, [facility] [address], [place] [address]- 8560 Jul, [facility] [address], [place] [address]- 6206 Jun, [facility] [address] [id number] [place] [address]- 8872 Jun, [facility] [place] [facility] [address] [id number] [place] [address]65 Jun, [facility] [place] [facility] [address] [id number] [place] [address]- 5316 Jun, [facility] [place] [facility] [address] [id number] [place] [address]- 4469 Jun, [facility] [place] [facility] [address] [id number] [place] [address]- 6226 May, [facility] [place] [facility] [address] [id number] [place] [address]- 0160 May, [facility] [place] [facility] [address] [id number] [place] [address]- 1333 Apr, [facility] [place] [facility] [address] [id number] [place] [address]- 2204 Apr, [facility] [place] [facility] [address] [id number] [place] [address]- 7316 Apr, [facility] [place] [facility] [address] [id number] [place] [address]- 0433 Apr, [facility] [place] [facility] [address] [facility] [id number] [place] [address]- 4844 17 Apr, 2013 [facility] [place] [facility] [address] [id number] [place] [address]- 9923 17 Apr, 2013 [facility] [place] [facility] [address] [id number] [place] [address]- 6415 Apr, [facility] [place] [facility] [address] [id number] [place] [address]- 4553 Apr, [facility] [place] [facility] [address] [id number] [place] [address]- 2235 Feb, [facility] [place] [facility] [address] [id number] [place] [address]- 5168 Feb, [facility] [address] [id number] [place] [address]- 7979 Jan, [facility] [place] [facility] [address] [id number] [place] [address]- 7886 Jan, [facility] [place] [facility] [address] [id number] [place] [address]- 5998 Dec, [facility] [place] [facility] [address] [id number] [place] [address]- 4467 Dec, [facility] [place] [facility] [address] [id number] [place] [address]- 9366 Dec, [facility] [place] [facility] [address] [id number] [place] [address]- 8258 Nov, [facility] [place] [facility] [address] [id number] [place] [address]- 8948 Nov, [facility] [place] [facility] [address] [id number] [place] [address]- 0514 Nov, [facility] [place] [facility] [address] [id number] [place] [address]- 8538 Oct, [facility] [place] [facility] [address] [id number] [place] [address]- 2474 Oct, [facility] [place] [facility] [address] [id number] [place] [address]- 6614 Oct, [facility] [place] [facility] [address] [id number] [place] [address]- 5148 September, [facility] [place] [facility] [address] [id number] [place] [address]- 4432 September, [facility] [place] [facility] [address] [id number] [place] [address]- 0740 September, [facility] [place] [facility] [address] [id number] [place] [address]- 0504 Aug, [facility] [place] [facility] [address] [id number] [place] [address]- 5033 20 Aug, 2011 [facility] [address] [id number] [place] [address]- 7065 19 Aug, 2011 [facility] [place] [facility] [address] [id number] [place] [address]- 0839 16 Aug, 2011 [facility] [address] [id number] [place] [address]- 6652 Jul, [facility] [address] [id number] [place] [address]- 9097 21 Jun, 2011 [facility] [address] [id number] [place] [address]- 2617 14 Jun, 2011 [facility] [address] [id number] [place] [address]- 2694 13 Jun, 2011 [facility] [address] [id number] [place] [address]- 8543 07 Jun, 2011 [facility] [address] [id number] [place] [address]- 7524 03 Jun, 2011 [facility] [address] [id number] [place] [address]- 9337 May, [facility] [address] [id number] [place] [address]- 1636 May, [facility] [address] [id number] [place] [address]- 6541 May, [facility] [address] [id number] [place] [address]- 9892 May, [facility] [place] [facility] [address] [id number] [place] [address]- 9375 Apr, [facility] [place] [facility] [address] [id number] [place] [address]- 6082 13 Apr, 2011 [facility] [address] [id number] [place] [address]- 3559 05 Apr, 2011 [facility] [place] [facility] [address] [id number] [place] [address]- 0758 Mar, [facility] [place] [facility] [address] [id number] [place] [address]- 3806 Mar, [facility] [place] [facility] [address] [id number] [place] [address]- 6410 Mar, [facility] [place] [facility] [address] [id number] [place] [address]- 1889 Feb, [facility] [place] [facility] [address] [id number] [place] [address]- 8335 Feb, [facility] [place] [facility] [address] [id number] [place] [address]- 6189 Feb, [facility] [place] [facility] [address] [id number] [place] [address]- 8704 Nov, [facility] [place] [facility] [address] [id number] [place] [address]- 9702 September, [facility] [place] [facility] [address] [id number] [place] [address]- 4529 Aug, [facility] [place] [facility] [address] [id number] [place] [address]- 1819 Jul, [facility] [place] [facility] [address] [id number] [address]- 9833 May, [facility] [place] [facility] [address] [id number] [address]- 9899 31 Apr, 2010 [facility] [place] [facility] [address] [id number] [place] [address]- 0531 30 Apr, 2010 [facility] [place] [facility] [address] [id number] [place] [address]- 5247 13 Apr, 2010 [facility] [place] [facility] [address] [id number] [place] [address]- 9135 Apr, [facility] [place] [facility] [address] [facility] [id number] [place] [address]- 8657 Apr, IMMUNIZATIONS No Known Immunizations SOCIAL HISTORY Never Assessed [facility] CARE VITAL SIGNS MEDICATIONS Medication Instructions Dosage Frequency Start Date End Date Duration Status Lorazepam 2 MG Orally in the AM [...]
--- OUTSIDE RECORDS SUMMARY | 2017-11-18 07:11 | XMS REPORT ---
Author Author WHIT GANDHI [facility] Address [address] [place] [address] Care Team Providers Care Fisher Troll Line Name Role Phone WHIT GANDHI Unavailable PROBLEMS Type Condition ICD9-CM Code [id number] Code Onset Dates Condition Status SNOMED Code Problem GERD (gastroesophageal reflux disease) K21.9 Active 391099584 Problem Back pain M54.9 Active 068347833 Problem Diabetes E11.9 Active 77919358 Problem Hypertension I10 Active 25345601 Problem Anxiety disorder, unspecified F41.9 Active 088066701 Problem Other bipolar disorder F31.89 Active 69763623 Problem Fibromyalgia M79.7 Active 31991269 Problem Moderate persistent asthma without complication J45.40 Active 421183958 Problem Panic disorder with agoraphobia F40.01 Active 72084492 Problem Panlobular emphysema J43.1 Active 4815486 Problem Chronic obstructive pulmonary disease, unspecified J44.9 Active 13410363 Problem Akathisia G25.71 Active 280247068 Problem Fibrocystic disease of left breast N60.12 Active 90381069 Problem Migraine without aura and without status migrainosus, not intractable G43.009 Active 596391315 Problem Essential tremor G25.0 Active 736219472 Problem Schizoaffective disorder, bipolar type F25.0 Active 94382064 Problem Other chronic pain G89.29 Active 52250166 Problem Lumbago with sciatica, right side M54.41 Active 998097726 Problem Lumbago with sciatica, left side M54.42 Active 858568638 Problem Arthritis M19.90 Active 6337701 Problem Fibrocystic disease of right breast N60.11 Active 10150379 Problem Irritable bowel syndrome with both constipation and diarrhea K58.2 Active 47606877 Problem Irritable bowel syndrome with constipation K58.1 Active 976794308 Problem Bipolar affective disorder, remission status unspecified F31.9 Active 63764353 Problem Attention deficit hyperactivity disorder (ADHD), predominantly inattentive type F90.0 Active 61557592 Problem Bipolar 1 disorder, depressed, moderate F31.32 Active 99436470 Problem Chronic post-traumatic stress disorder (PTSD) F43.12 Active 466883857 Problem Bipolar 1 disorder, depressed, partial remission F31.75 Active 09035265 Problem Mild persistent asthma without complication J45.30 Active 761887419 Problem Bipolar I disorder with depression F31.9 Active 54195260 Problem Acute non-recurrent maxillary sinusitis J01.00 Active 17340891 ALLERGIES No Information ENCOUNTERS Encounter Location Date Diagnosis [place] [address] 40119- 9215 Nov, [place] [address] 94398- 9148 Oct, [place] [address] 97069- 0870 Oct, [place] [address] 88167- 2928 Oct, [place] [address] 71598- 4328 September, Frequent headaches R51 [place] [address] 00076- 1458 September, Bilateral otitis media with effusion H65.93 ; Dizziness R42 and Essential tremor G25.0 [place] [address] 66526- 6826 September, Chronic obstructive pulmonary disease, unspecified COPD type J44.9 [place] [address] [place] [id number] [place] [address] 76624- 1499 September, Chronic obstructive pulmonary disease, unspecified COPD type J44.9 [place] [address] 73761- 2675 September, Migraine without aura and without status migrainosus, not intractable G43.009 [place] [address] 93513- 5270 September, [facility] [address] [address] 2682 September, [facility] [address] [place] [id number] [place] [address] 84120- 1393 September, [facility] [id number] [place] [address] 69003- 4477 September, Frequent headaches R51 [facility] [address] [place] [id number] [place] [address] 79711- 5711 Aug, [facility] [address] [place] [id number] [place] [address] 12452- 4592 Aug, Breast mass, right N63.10 [place] [address] [place] [id number] [place] [address] 07611- 6265 Aug, Breast lump N63.0 [place] [address] [place] [id number] [place] [address] 52099- 0096 Aug, [facility] [address] [place] [id number] [place] [address] 99296- 7150 Aug, Bipolar affective disorder, remission status unspecified F31.9 and Diabetes E11.9 [place] [id number] [place] [address] 60156- 3886 Aug, Diabetes E11.9 ; Schizoaffective disorder, bipolar type F25.0 ; Pharyngitis due to other organism J02.8 ; Panlobular emphysema J43.1 and Irritable bowel syndrome with both constipation and diarrhea K58.2 [place] [id number] [place] [address] 55475- 8725 Aug, Abnormal mammogram R92.8 [place] [address] [place] [id number] [place] [address] 11196- 1526 Aug, [place] [id number] [place] [address] 21498- 1000 Aug, Bipolar 1 disorder, depressed, moderate F31.32 ; Panic disorder with agoraphobia F40.01 and Chronic post-traumatic stress disorder ( PTSD) F43.12 [facility] [address] [place] [id number] [place] [address] 70745- 8447 Aug, [facility] [address] [place] [id number] [place] [address] 71303- 3065 Aug, [facility] [address] [place] [id number] [place] [address] 48950- 0715 Aug, [facility] [address] [place] [id number] [place] [address] 90463- 7482 Jul, [facility] [address] 90745- 4838 Jul, Mild persistent asthma without complication J45.30 [facility] [address] [place] [id number] [place] [address] 67175- 1397 Jul, Mild persistent asthma without complication J45.30 [facility] [address] [place] [id number] [place] [address] 76061- 3538 Jul, Bipolar affective disorder, remission status unspecified F31.9 ; Diabetes E11.9 and Irritable bowel syndrome with constipation K58.1 [facility] [address] [place] [id number] [place] [address] 54357- 3913 Jul, [facility] [address] [place] [id number] [address]- 4807 Jul, [facility] [address] [place] [id number] [place] [address] 70317- 5877 Jul, Frequent headaches R51 [facility] [address] [place] [id number] [place] [address] 63268- 5621 Jul, [facility] [address] [place] [id number] [place] [address] 39185- 9145 Jul, [facility] [address] [place] [id number] [place] [address] 62540- 8418 Jul, [facility] [address] [place] [address]- 8627 Jul, Frequent headaches R51 ; Fibrocystic disease of left breast N60.12 ; Fibrocystic disease of right breast N60.11 and Diabetes E11.9 [place] [address] [place] [id number] [place] [address] 43720- 3889 Jul, [facility] [address] 78234- 2762 Jul, [place] [address] 85528- 3480 Jun, Exudative tonsillitis J03.90 [place] [address] 00880- 8821 Jun, [place] [address] 43759- 4203 Jun, [place] [address] [place] [id number] [place] [address] 07949- 5444 15 Jun, 2017 Mild persistent asthma without complication J45.30 ; Chronic obstructive pulmonary disease, unspecified COPD type J44.9 and Exudative tonsillitis J03.90 [place] [address] [place] [id number] [place] [address] 15207- 6530 Jun, Encounter for immunization Z23 [place] [address] [place] [id number] [place] [address] 12538- 8644 Jun, [place] [address] 41900- 6493 Jun, [place] [address] [place] [id number] [place] [address] 26849- 2902 Jun, [facility] [address] [place] [id number] [place] [address] 90264 -1459 06 Jun, 2017 Tonsillitis J03.90 [place] [address] [place] [id number] [place] [address] 65222- 9072 05 Jun, 2017 [facility] [address] [place] [id number] [place] [address] 95932- 1419 Jun, Acute non-recurrent maxillary sinusitis J01.00 [place] [address] 52925- 6762 Jun, [facility] [address] 79662- 2450 May, [place] [address] 94522- 3390 May, [place] [address] 13135- 8808 May, GERD (gastroesophageal reflux disease) K21.9 [place] [address] 28617- 9924 May, Migraine without aura and without status migrainosus, not intractable G43.009 [place] [address] 32218- 9031 May, [place] [address] 24160- 2482 May, [place] [address] 66263- 7081 May, Panlobular emphysema J43.1 and Acute non-recurrent maxillary sinusitis J01.00 [place] [address] [place] [id number] [place] [address] 12757- 5946 May, Bipolar 1 disorder, depressed, moderate F31.32 ; Panic disorder with agoraphobia F40.01 and Akathisia G25.71 [place] [address] 66850- 4570 Apr, [place] [address] 23672- 8848 Apr, [place] [address] 28993- 5728 Apr, Acute non-recurrent maxillary sinusitis J01.00 [facility] [address] [place] [id number] [place] [address] 85452- 8002 07 Apr, 2017 Panlobular emphysema J43.1 [facility] [address] [place] [id number] [place] [address] 13698- 6823 04 Apr, 2017 [facility] [address] [place] [id number] [place] [address] 81286 -6846 Apr, Sore throat J02.9 and Exudative tonsillitis J03.90 [facility] [address] [place] [id number] [place] [address] 00985- 0605 Mar, [facility] [address] [place] [id number] [place] [address] 98025- 4232 15 Mar, 2017 Acute non-recurrent maxillary sinusitis J01.00 [facility] [address] [place] [id number] [place] [address] 21532- 7004 Mar, [facility] [address] [place] [id number] [place] [address] 23692- 7546 Mar, Panlobular emphysema J43.1 and Diabetes E11.9 [facility] [address] [place] [id number] [place] [address] 72487- 7309 Mar, [facility] [address] [place] [id number] [place] [address] 47421 -1343 Feb, Wheezing R06.2 and Acute recurrent pansinusitis J01.41 [facility] [address] [place] [id number] [place] [address] 49603- 0681 Feb, [facility] [address] [place] [id number] [place] [address] 21434- 7402 Feb, Acute non-recurrent maxillary sinusitis J01.00 [facility] [address] [place] [id number] [place] [address] 93199- 7294 Feb, Chronic obstructive pulmonary disease, unspecified J44.9 [facility] [address] [place] [id number] [place] [address] 97071 2543 02 Feb, 2017 Hypoxemia R09.02 and Chronic obstructive pulmonary disease, unspecified J44.9 [facility] [address] [place] [id number] [place] [address] 63774 2546 28 Jan, 2017 Bipolar 1 disorder, depressed, moderate F31.32 ; Panic disorder with agoraphobia F40.01 ; Chronic post-traumatic stress disorder (PTSD ) F43.12 ; Diabetes E11.9 and Moderate persistent asthma without complication J45.40 [place] [address] [place] [id number] [place] [address] 57530 2546 22 Jan, 2017 [place] [address] 19235 2546 19 Jan, 2017 Acute non-recurrent maxillary sinusitis J01.00 [place] [address] [place] [id number] [place] [address] 57139- 2286 18 Jan, 2017 [place] [address] [place] [id number] [place] [address] 31176 2546 18 Jan, 2017 [place] [address] 06933 2546 Jan, Moderate persistent asthma without complication J45.40 and Hypoxemia R09.02 [place] [address] [place] [id number] [place] [address] 59030 2546 11 Jan, 2017 Moderate persistent asthma without complication J45.40 and Hypoxemia R09.02 [place] [address] [place] [id number] [place] [address] 02166 2546 Jan, [place] [address] [place] [id number] [place] [address] 97270 2546 Dec, Acute non-recurrent maxillary sinusitis J01.00 [facility] [address] [place] [id number] [place] [address] 13432 2546 Dec, Chronic obstructive pulmonary disease, unspecified J44.9 [place] [address] [place] [id number] [place] [address] 59625- 4629 Dec, [facility] [id number] [place] [address] 32833- 8446 Dec, Mild persistent asthma without complication J45.30 and Other chronic pain G89.29 [facility] [id number] [place] [address] 09260- 2820 Nov, [facility] [address] [place] [id number] [place] [address] 14802- 8956 Nov, Acute non-recurrent maxillary sinusitis J01.00 [facility] [id number] [place] [address] 35802- 5766 Nov, [facility] [address] [place] [id number] [place] [address] 18975- 9956 Nov, [facility] [address] [place] [id number] [place] [address] 59078- 2159 Oct, [facility] [address] [place] [id number] [place] [address] 61576- 8265 Oct, Bipolar 1 disorder, depressed, partial remission F31.75 ; Panic disorder with agoraphobia F40.01 and Chronic post-traumatic stress disorder (PTSD) F43.12 [facility] [address] [address]- 7900 Oct, Acute non-recurrent maxillary sinusitis J01.00 [facility] [address] [address]- 2153 Oct, [facility] [id number] [place] [address] 79218- 2648 Oct, Diabetes E11.9 [facility] [address] [place] [id number] [place] [address] 82953- 0914 September, Diabetes E11.9 [facility] [id number] [place] [address] 86033- 9258 September, Diabetes E11.9 and Sinus tachycardia R00.0 [facility] [address] [address]- 5237 September, [facility] [address] [place] [id number] [place] [address] 51365- 4647 September, [facility] [address] [place] [id number] [address]- 5857 Aug, Diabetes E11.9 and Lumbago with sciatica, right side M54.41 [facility] [address] [place] [id number] [place] [address] 31947- 5546 Aug, [facility] [id number] [place] [address] 54367- 6247 Jul, Bipolar 1 disorder, depressed, moderate F31.32 ; Panic disorder with agoraphobia F40.01 and Chronic post-traumatic stress disorder ( PTSD) F43.12 [facility] [address] [place] [id number] [place] [address] 55330- 3829 Jul, Sore throat J02.9 [facility] [id number] [place] [address] 16151- 2620 Jul, [facility] [address] [place] [id number] [place] [address] 14591- 9453 Jul, [facility] [address] [address]- 3938 Jul, [facility] [address] [place] [id number] [place] [address] 82869- 9777 Jul, [facility] [address] [place] [address] 61263- 8922 Jul, Sore throat J02.9 and Pharyngitis, unspecified etiology J02.9 [facility] [address] [address]- 0069 Jun, [facility] [address] [address]- 5353 Jun, Diabetes E11.9 [facility] [address] [facility] [id number] [address]- 3086 Jun, [facility] [address] [facility] [id number] [place] [address]- 9346 Jun, [facility] [address] [place] [id number] [address]- 9226 Jun, [facility] [address] [address]- 7156 Jun, [facility] [address] [facility] [id number] [place] [address]- 8156 Jun, [facility] [address] [address]- 0686 Jun, [facility] [address] [address]- 3296 Jun, [facility] [address], [place] [address]- 1510 Jun, [facility] [address] [address]- 4161 May, Diabetes E11.9 ; Bipolar I disorder with depression F31.9 ; Other chronic pain G89.29 ; Acute recurrent maxillary sinusitis J01.01 and Anxiety disorder, unspecified F41.9 [facility] [address] [address]- 3786 May, [facility] [address] [address]- 2546 May, Diabetes E11.9 ; Bipolar I disorder with depression F31.9 ; Anxiety disorder, unspecified F41.9 ; Other chronic pain G89.29 and Acute recurrent maxillary sinusitis J01.01 [facility] [address] [address]- 8346 May, [facility] [address] [address]- 5574 May, Attention deficit hyperactivity disorder (ADHD), predominantly inattentive type F90.0 [place] [id number] [place] [address] 69991- 4691 May, [place] [address] [place] [id number] [place] [address] 62780- 0448 Apr, Attention deficit hyperactivity disorder (ADHD), predominantly inattentive type F90.0 and Non-seasonal allergic rhinitis due to other allergic trigger J30.89 [place] [address] [place] [id number] [place] [address] 20559- 4102 Apr, Bipolar 1 disorder, depressed, moderate F31.32 ; Panic disorder with agoraphobia F40.01 and Chronic post-traumatic stress disorder ( PTSD) F43.12 [place] [address] [place] [id number] [place] [address] 47702- 5586 Apr, Dental examination Z01.20 [place] [address] [place] [id number] [place] [address] 34710- 7430 Mar, [place] [address] [place] [id number] [place] [address] 95394- 9325 Mar, [place] [address] [place] [id number] [place] [address] 58351- 4483 Mar, Bipolar I disorder with depression F31.9 and Anxiety disorder, unspecified F41.9 [place] [address] [place] [id number] [place] [address] 56647- 9667 Mar, Panic disorder with agoraphobia F40.01 ; Bipolar 1 disorder , depressed, moderate F31.32 and Chronic post-traumatic stress disorder (PTSD) F43.12 [place] [address] [place] [id number] [place] [address] 03552- 2514 Mar, [place] [address] [place] [id number] [place] [address] 09394- 2957 Mar, Dental caries K02.9 [place] [address] [place] [id number] [place] [address] 46326- 8215 Feb, Lumbago with sciatica, left side M54.42 ; Lumbago with sciatica, right side M54.41 and Other chronic pain G89.29 [facility] [address] [place] [id number] [place] [address] 27684- 6015 Feb, [facility] [address] [id number] [place] [address] 98915- 3762 Feb, [facility] [address] 28310- 3076 Feb, Bipolar I disorder with depression F31.9 ; PTSD (post- traumatic stress disorder) F43.10 and Mood disorder F39 [place] [address] 70266- 0829 Feb, [place] [address] [place] [id number] [place] [address] 94135- 1538 Feb, Dental examination Z01.20 [facility] [address] 94071- 9821 Feb, [facility] [address] 76366 -6921 Feb, Acute bronchitis, unspecified organism J20.9 [facility] [address] [id number] [place] [address] 76431- 5621 Jan, Mood disorder F39 ; Migraine without aura and without status migrainosus, not intractable G43.009 ; Irritable bowel syndrome, unspecified type K58.9 ; Diabetes E11.9 and Encounter for immunization Z23 [facility] [id number] [place] [address] 10476- 1273 Jan, [place] [address] 11978- 3081 06 Jan, 2016 [facility] [id number] [place] [address] 86606- 8539 Jan, [facility] [address] [place] [address]- 2802 Jan, [facility] [id number] [place] [address] 55811- 4637 Jan, [facility] [id number] [place] [address] 31623- 1541 Dec, Bipolar I disorder with depression F31.9 ; PTSD (post- traumatic stress disorder) F43.10 and Panic disorder with agoraphobia F40.01 [facility] [id number] [place] [address] 93370- 0776 Dec, Chronic obstructive pulmonary disease, unspecified COPD type J44.9 ; Tremor R25.1 and Anxiety F41.9 [facility] [id number] [place] [address] [phone]- [phone] Dec, [facility] [id number] [place] [address] 21715- 1407 Nov, Tremors of nervous system R25.1 and Cramping of feet R25.2 [facility] [id number] [place] [address] [id number]- [phone] Nov, [facility] [id number] [place] [address] [phone]- [phone] Nov, [facility] [id number] [place] [address] [phone]- 4864 Oct, Chronic obstructive pulmonary disease, unspecified J44.9 [facility] [id number] [address] Oct, [facility] [id number] [place] [address] [id number]- 5693 Oct, Tremor R25.1 [facility] [id number] [place] [address] [id number]- 3352 Oct, Bipolar I disorder with depression F31.9 ; Diabetes E11.9 ; PTSD (post-traumatic stress disorder) F43.10 and Panic disorder with agoraphobia F40.01 [facility] [id number] [address] Oct, Mood disorder F39 [facility] [id number] [place] [address] [phone]- 1237 September, [facility] [id number] [place] [address] [id number]- 1534 September, Diabetes E11.9 ; Bipolar I disorder with depression F31.9 ; PTSD (post-traumatic stress disorder) F43.10 and Panic disorder with agoraphobia F40.01 [place] [id number] [place] [address] 64115- 7174 September, Mood disorder F39 ; Schizoaffective disorder, unspecified type F25.9 ; Arthritis M19.90 ; Tremor R25.1 ; Acute non-recurrent frontal sinusitis J01.10 and Blood in stool K92.1 [place] [address] [address] [place] [id number] [place] [address] 29844- 2358 September, [facility] [id number] [place] [address] 53006- 2318 September, Chronic obstructive pulmonary disease, unspecified J44.9 [place] [id number] [place] [address] 51348- 9519 September, Diabetes E11.9 [place] [id number] [place] [address] 03165- 8945 Aug, Other bipolar disorder F31.89 and Anxiety disorder, unspecified F41.9 [facility] [address] [address] 43[address] Aug, [facility] [id number] [place] [address] 79471- 3615 Aug, Diabetes E11.9 [facility] [id number] [place] [address] 99226- 8293 Aug, [place] [id number] [place] [address] 98241- 8141 14 Aug, 2015 Diabetes E11.9 ; Fatigue R53.83 and Dizziness R42 [facility] [address] 83645- 6978 13 Aug, 2015 Other bipolar disorder F31.89 [facility] [id number] [place] [address] 22794- 7840 07 Aug, 2015 Generalized anxiety disorder F41.1 [facility] [address] 09829- 4223 Aug, Other bipolar disorder F31.89 and Anxiety disorder, unspecified F41.9 [facility] [address] 99771- 9733 Aug, [facility] [address] 15909- 2880 Jul, [facility] [address] 65585- 9415 24 Jul, 2015 [facility] [address] 37254- 7126 Jul, Bronchitis J40 [facility] [address] 65269- 6695 Jul, Anxiety disorder F41.9 [facility] [id number] [place] [address] 31678- 5681 Jul, Other bipolar disorder F31.89 and Anxiety disorder, unspecified F41.9 [facility] [id number] [place] [address] 78502- 2841 18 Jul, 2015 Other bipolar disorder F31.89 and Fibromyalgia M79.7 [facility] [id number] [place] [address] 25857- 8058 10 Jul, 2015 [facility] [id number] [place] [address] 77719- 4185 Jul, [facility] [address] [place] [address]- 2262 Jul, [facility] [id number] [place] [address] 78823- 6532 Jul, Other bipolar disorder F31.89 and Anxiety disorder, unspecified F41.9 [facility] [id number] [place] [address] 19081- 1265 Jun, GERD (gastroesophageal reflux disease) K21.9 [facility] [address] 42130- 1621 Jun, [facility] [address] 39608- 3412 May, [facility] [address] 87953- 5426 May, Diabetes E11.9 ; Back pain M54.9 ; GERD (gastroesophageal reflux disease) K21.9 ; Hypertension I10 and Peripheral neuropathy G62.9 [facility] [id number] [place] [address] 95543- 9241 Mar, [facility] [address] 27113- 1401 Mar, [facility] [id number] [place] [address] 87749- 2773 Mar, Acute sinusitis J01.90 and Otitis media, left H66.92 [facility] [id number] [place] [address] 71568- 9560 Feb, [facility] [id number] [place] [address] 66523- 7913 Feb, [facility] [address] 97759- 4727 15 Feb, 2015 [facility] [address] 03976- 6683 Feb, [facility] [address] 94778- 2949 Jan, [facility] [id number] [place] [address] 85639- 4769 Jan, Diabetes 250.00 and Back pain 724.5 [facility] [id number] [place] [address] 96242- 0355 Jan, [facility] [id number] [place] [address] 32345- 6874 Dec, Diabetes 250.00 ; Benign essential hypertension 401.1 and Allergic rhinitis 477.9 [facility] [id number] [place] [address] 03215- 5987 Dec, [facility] [id number] [place] [address] 49912- 7624 Dec, [facility] [id number] [place] [address] 36688- 8940 Dec, Psychosis 298.9 [facility] [id number] [place] [address] 78125- 1601 Dec, Medication side effect 995.20 and Generalized anxiety disorder 300.02 [facility] [id number] [place] [address] 40360- 9508 Dec, Acquired cognitive dysfunction 294.9 [facility] [id number] [place] [address] 68988- 8585 Dec, [facility] [id number] [place] [address] 50983- 1401 Dec, Unspecified myalgia and myositis 729.1 and Generalized anxiety disorder 300.02 [facility] [id number] [place] [address] 96337- 9260 Nov, [facility] [id number] [place] [address] 72064- 9690 Nov, [facility] [id number] [place] [address] 30728- 8925 Nov, [facility] [address] [address]- 1786 Nov, Upper respiratory infection 465.9 and Chronic airway obstruction, not elsewhere classified 496 [facility] [address] [address]- 7880 Nov, Hyponatremia 276.1 [facility] [id number] [place] [address] 02672- 5694 Oct, [facility] [id number] [place] [address] 95901- 3790 Oct, [facility] [id number] [place] [address] 59397- 7786 Oct, [facility] [id number] [place] [address] 48581- 0392 Oct, [facility] [id number] [place] [address] 92488- 3244 Oct, Hyponatremia 276.1 [facility] [id number] [place] [address] 53382- 9676 Oct, [facility] [id number] [place] [address] 71550- 9978 Oct, [facility] [address] [address]- 4120 Oct, Generalized anxiety disorder 300.02 [facility] [id number] [place] [address] 31697- 8436 Oct, Generalized anxiety disorder 300.02 and Diabetes 250.00 [facility] [address], [place] [address]- 6997 Aug, [facility] [id number] [place] [address] 82640- 5202 Aug, [facility] [address], [place] [address]- 4452 Jul, [facility] [address] [address]- 7865 Jul, [facility] [place] [facility] [address] [id number] [place] [address] Jun, [facility] [place] [facility] [address] [id number] [place] [address]- 1126 Jun, [facility] [place] [facility] [address] [id number] [place] [address]- 2646 Jun, [facility] [place] [facility] [address] [id number] [place] [address]- 8671 Jun, [facility] [place] [facility] [address] [id number] [place] [address]- 0646 Jun, [facility] [place] [facility] [address] [id number] [place] [address]- 5393 May, [facility] [place] [facility] [address] [id number] [place] [address]- 5925 May, [facility] [place] [facility] [address] [id number] [place] [address]- 6912 Apr, [facility] [place] [facility] [address] [id number] [place] [address]- 7567 Apr, [facility] [place] [facility] [address] [facility] [id number] [place] [address]- 1376 Apr, [facility] [place] [facility] [address] [id number] [place] [address]- 4280 18 Apr, 2013 [facility] [place] [facility] [address] [id number] [place] [address]- 3897 17 Apr, 2013 [facility] [place] [facility] [address] [id number] [place] [address]- 8096 Apr, [facility] [place] [facility] [address] [id number] [place] [address]- 9176 02 Apr, 2013 [facility] [place] [facility] [address] [id number] [place] [address] 2547 Apr, [facility] [place] [facility] [address] [id number] [place] [address]- 1087 Feb, [facility] [place] [facility] [address] [id number] [place] [address]- 0466 Feb, [facility] [place] [facility] [address] [id number] [place] [address]- 2546 Jan, [facility] [place] [facility] [address] [id number] [place] [address]- 2546 Jan, [facility] [place] [facility] [address] [id number] [place] [address] 2542 Dec, [facility] [place] [facility] [address] [id number] [place] [address]- 3766 Dec, [facility] [place] [facility] [address] [id number] [place] [address]- 0386 Dec, [facility] [place] [facility] [address] [id number] [place] [address]- 3943 Nov, [facility] [place] [facility] [address] [id number] [place] [address]- 0638 Nov, [facility] [place] [facility] [address] [id number] [place] [address]- 4723 Nov, [facility] [place] [facility] [address] [id number] [address]- 4872 Oct, [facility] [place] [facility] [address] [id number], [place] [address]- 2549 Oct, [facility] [place] [facility] [address] [id number] [place] [address]- 2546 Oct, [facility] [place] [facility] [address] [id number] [place] [address]- 3546 September, [facility] [place] [facility] [address] [id number] [place] [address]- 2546 September, [facility] [place] [facility] [address] [id number] [place] [address]- 8535 September, [facility] [address] [id number] [place] [address]- 1646 25 Aug, 2011 [facility] [place] [facility] [address] [id number] [place] [address]- 2896 20 Aug, 2011 [facility] [address] [id number] [place] [address]- 5646 19 Aug, 2011 [facility] [address] [id number] [place] [address]- 5248 16 Aug, 2011 [facility] [address] [id number] [place] [address]- 9909 Jul, [facility] [address] [id number] [place] [address]- 3036 21 Jun, 2011 [facility] [address] [id number] [place] [address]- 8725 14 Jun, 2011 [facility] [address] [id number] [place] [address]- 2345 13 Jun, 2011 [facility] [address] [id number] [place] [address]- 9639 07 Jun, 2011 [facility] [address] [facility] [id number] [place] [address]- 0116 03 Jun, 2011 [facility] [address] [id number] [place] [address]- 0027 May, [facility] [address] [id number] [place] [address]- 5924 May, [facility] [place] [facility] [address] [id number] [place] [address]- 6926 09 May, 2011 [facility] [place] [facility] [address] [id number] [place] [address] 2546 May, [facility] [place] [facility] [address] [id number] [place] [address]- 1523 Apr, [facility] [place] [facility] [address] [id number] [place] [address]- 4071 13 Apr, 2011 [facility] [place] [facility] [address] [id number] [place] [address]- 7114 05 Apr, 2011 [facility] [place] [facility] [address] [id number] [place] 4700 Mar, [facility] [place] [facility] [address] [id number] [place] [address]- 3134 Mar, [facility] [place] [facility] [address] [id number] [place] 7076 Mar, [facility] [place] [facility] [address] [id number] [place] [address]- 8165 13 Feb, 2011 [facility] [place] [facility] [address] [id number] [place] [address]- 2820 13 Feb, 2011 [facility] [place] [facility] [address] [id number] [place] [address]- 3855 13 Feb, 2011 [facility] [place] [facility] [address] [id number] [place] [address]- 2386 Nov, [facility] [place] [facility] [address] [id number] [place] [address]- 7576 September, [facility] [place] [facility] [address] [id number] [place] [address]- 9864 Aug, [facility] [place] [facility] [address] [id number] [address]- 0618 14 Jul, 2010 [facility] [place] [facility] [address] [id number] [place] [address]- 7491 May, [facility] [place] [facility] [address] [id number] [place] [address]- 2461 31 Apr, 2010 [facility] [place] [facility] [address] [id number] [place] [address]- 1262 30 Apr, 2010 [facility] [place] [facility] [address] [facility] [id number] [place] [address]- 0437 13 Apr, 2010 [facility] [address] [facility] [id number] [place] [address]- 4032 Apr, [facility] [address] [facility] [id number] [place] [address]- 6998 Apr, IMMUNIZATIONS No Known Immunizations SOCIAL HISTORY Never Assessed REASON FOR VISIT Controlled Med Refill 04/22/17 PLAN OF CARE VITAL SIGNS MEDICATIONS Medication Instructions Dosage Frequency Start Date End Date Duration Status Norman 7.5-325 MG Orally 3 times a day 1 tablet as needed 8h Apr, 28 days Active RESULTS No Results PROCEDURES [...]
--- OUTSIDE RECORDS SUMMARY | 2017-11-18 07:12 | XMS REPORT ---
Author Author WHIT GANDHI [facility] Address [address] [place] [address] Care Team Providers Care Angledozer Operator Name Role Phone WHIT GANDHI Unavailable PROBLEMS Type Condition ICD9-CM Code QNK32-MH Code Onset Dates Condition Status SNOMED Code Problem GERD (gastroesophageal reflux disease) K21.9 Active 500121535 Problem Back pain M54.9 Active 629882677 Problem Diabetes E11.9 Active 18938511 Problem Hypertension I10 Active 74111740 Problem Anxiety disorder, unspecified F41.9 Active 880375685 Problem Other bipolar disorder F31.89 Active 29233169 Problem Fibromyalgia M79.7 Active 23618319 Problem Moderate persistent asthma without complication J45.40 Active 485218883 Problem Panic disorder with agoraphobia F40.01 Active 33784780 Problem Panlobular emphysema J43.1 Active 0571372 Problem Chronic obstructive pulmonary disease, unspecified J44.9 Active 77305086 Problem Akathisia G25.71 Active 589118319 Problem Fibrocystic disease of left breast N60.12 Active 16263147 Problem Migraine without aura and without status migrainosus, not intractable G43.009 Active 693364765 Problem Essential tremor G25.0 Active 053557234 Problem Schizoaffective disorder, bipolar type F25.0 Active 58763397 Problem Other chronic pain G89.29 Active 23854357 Problem Lumbago with sciatica, right side M54.41 Active 613820642 Problem Lumbago with sciatica, left side M54.42 Active 811312189 Problem Arthritis M19.90 Active 7927574 Problem Fibrocystic disease of right breast N60.11 Active 96534276 Problem Irritable bowel syndrome with both constipation and diarrhea K58.2 Active 82677654 Problem Irritable bowel syndrome with constipation K58.1 Active 339234655 Problem Bipolar affective disorder, remission status unspecified F31.9 Active 14635685 Problem Attention deficit hyperactivity disorder (ADHD), predominantly inattentive type F90.0 Active 56120719 Problem Bipolar 1 disorder, depressed, moderate F31.32 Active 56192447 Problem Chronic post-traumatic stress disorder (PTSD) F43.12 Active 025696161 Problem Bipolar 1 disorder, depressed, partial remission F31.75 Active 46240361 Problem Mild persistent asthma without complication J45.30 Active 535118636 Problem Bipolar I disorder with depression F31.9 Active 13178548 Problem Acute non-recurrent maxillary sinusitis J01.00 Active 48474099 ALLERGIES No Information ENCOUNTERS Encounter Location Date Diagnosis [place] [address] [address] Nov, [place] [address] [address]28 Oct, [place] [address] [address]10- [address] September, Frequent headaches R51 [place] [address] 6[address]40- 5072 September, Bilateral otitis media with effusion H65.93 ; Dizziness R42 and Essential tremor G25.0 [place] [address] 44771- 2239 September, Chronic obstructive pulmonary disease, unspecified COPD type J44.9 [place] [address] 87575- 3353 September, Chronic obstructive pulmonary disease, unspecified COPD type J44.9 [place] [address] 01187- 0062 September, Migraine without aura and without status migrainosus, not intractable G43.009 [place] [address] 00023- 6875 September, [place] [address] 50116- 1283 September, [place] [address] 49413- 9069 September, [place] [address] [place] [id number] [place] [address] 60089- 7289 September, Frequent headaches R51 [place] [address] [place] [id number] [place] [address] 59299- 2487 Aug, [place] [address] [place] [id number] [place] [address] 34477- 6196 Aug, Breast mass, right N63.10 [place] [address] [place] [id number] [place] [address] 84134- 2863 Aug, Breast lump N63.0 [place] [address] 20709- 5646 Aug, [place] [address] [place] [id number] [place] [address] 01369- 1806 Aug, Bipolar affective disorder, remission status unspecified F31.9 and Diabetes E11.9 [place] [address] [place] [id number] [place] [address] 30523- 6170 Aug, Diabetes E11.9 ; Schizoaffective disorder, bipolar type F25.0 ; Pharyngitis due to other organism J02.8 ; Panlobular emphysema J43.1 and Irritable bowel syndrome with both constipation and diarrhea K58.2 [place] [address] [place] [id number] [place] [address] 38396- 6388 Aug, Abnormal mammogram R92.8 [place] [address] [place] [id number] [place] [address] 79430- 7131 Aug, [place] [address] [place] [id number] [place] [address] 86956- 0064 Aug, Bipolar 1 disorder, depressed, moderate F31.32 ; Panic disorder with agoraphobia F40.01 and Chronic post-traumatic stress disorder ( PTSD) F43.12 [place] [address] [place] [address] 03378- 6806 Aug, [place] [address] [place] [address] Aug, [facility] [address] [address] 5426 Aug, [facility] [address] [address] Jul, [facility] [address] [place] [id number] [place] [address] 52899- 6673 Jul, Mild persistent asthma without complication J45.30 [facility] [address] [place] [address] 52956- 7667 19 Jul, 2017 Mild persistent asthma without complication J45.30 [facility] [address] [place] [id number] [place] [address] 27711- 7423 15 Jul, 2017 Bipolar affective disorder, remission status unspecified F31.9 ; Diabetes E11.9 and Irritable bowel syndrome with constipation K58.1 [facility] [address], [place] [address]- 9888 Jul, [facility] [address], [place] [address]- 5086 Jul, [facility] [address] [place] [address] 05044- 5861 Jul, Frequent headaches R51 [facility] [address], [place] [address]- 8003 Jul, [facility] [address] [place] [address]- 0250 Jul, [facility] [address] [address]- 7971 Jul, [facility] [address] [place] [id number] [place] [address] 92603- 3736 Jul, Frequent headaches R51 ; Fibrocystic disease of left breast N60.12 ; Fibrocystic disease of right breast N60.11 and Diabetes E11.9 [facility] [address] [place] [id number] [place] [address] 78005- 8292 Jul, [facility] [address] [place] [id number] [place] [address] 97176- 0841 Jul, [facility] [address] [place] [id number] [place] [address] 82259- 9597 Jun, Exudative tonsillitis J03.90 [facility] [address] 55317- 0771 Jun, [facility] [address] 63970- 6133 19 Jun, 2017 [facility] [address] 27882- 3332 15 Jun, 2017 Mild persistent asthma without complication J45.30 ; Chronic obstructive pulmonary disease, unspecified COPD type J44.9 and Exudative tonsillitis J03.90 [place] [address] 30719- 8233 13 Jun, 2017 Encounter for immunization Z23 [facility] [address] [place] [id number] [place] [address] 25526- 9135 Jun, [facility] [address] [place] [id number] [place] [address] 48871- 7582 Jun, [facility] [address] [place] [id number] [place] [address] 28583- 5394 Jun, [facility] [address] [place] [id number] [place] [address] 88569 -1170 06 Jun, 2017 Tonsillitis J03.90 [facility] [address] [place] [id number] [place] [address] 58437- 5577 05 Jun, 2017 [facility] [address] [place] [id number] [place] [address] 93570- 3531 03 Jun, 2017 Acute non-recurrent maxillary sinusitis J01.00 [facility] [address] [place] [id number] [place] [address] 20567- 1596 Jun, [facility] [address] [place] [address] 17216- 6271 May, [facility] [address] [place] [id number] [place] [address] 83091- 3361 May, [facility] [address] [place] [id number] [place] [address] 85782- 3388 May, GERD (gastroesophageal reflux disease) K21.9 [place] [address] [place] [id number] [place] [address] 81454- 5258 May, Migraine without aura and without status migrainosus, not intractable G43.009 [place] [address] [place] [id number] [place] [address] 40449- 5628 May, [place] [address] [place] [id number] [place] [address] 76084- 3187 May, [place] [address] [place] [id number] [place] [address] 75759- 9870 May, Panlobular emphysema J43.1 and Acute non-recurrent maxillary sinusitis J01.00 [place] [address] [place] [id number] [place] [address] 36764- 2339 May, Bipolar 1 disorder, depressed, moderate F31.32 ; Panic disorder with agoraphobia F40.01 and Akathisia G25.71 [place] [address] [place] [address] 88156- 9797 Apr, [place] [address] [place] [id number] [place] [address] 71190- 7391 Apr, [place] [address] [place] [id number] [place] [address] 78915- 3866 Apr, Acute non-recurrent maxillary sinusitis J01.00 [place] [address] [place] [id number] [place] [address] 05183- 1854 Apr, Panlobular emphysema J43.1 [facility] [address] [place] [id number] [place] [address] 80131- 4561 04 Apr, 2017 [facility] [address] 95938 -5254 Apr, Sore throat J02.9 and Exudative tonsillitis J03.90 [facility] [address] 89971- 0231 Mar, [facility] [address] 13023- 8845 Mar, Acute non-recurrent maxillary sinusitis J01.00 [place] [address] 18956- 3131 Mar, [facility] [address] 64542- 0671 Mar, Panlobular emphysema J43.1 and Diabetes E11.9 [facility] [address] 83256- 5266 Mar, [facility] [address] 63581 -1216 Feb, Wheezing R06.2 and Acute recurrent pansinusitis J01.41 [facility] [address] [place] [id number] [place] [address] 23913- 5947 Feb, [facility] [address] [place] [id number] [place] [address] 15021- 4955 Feb, Acute non-recurrent maxillary sinusitis J01.00 [facility] [address] [place] [id number] [place] [address] 78716- 4922 Feb, Chronic obstructive pulmonary disease, unspecified J44.9 [facility] [address] [place] [id number] [place] [address] 02781- 7890 Feb, Hypoxemia R09.02 and Chronic obstructive pulmonary disease, unspecified J44.9 [facility] [address] 73872- 4498 28 Jan, 2017 Bipolar 1 disorder, depressed, moderate F31.32 ; Panic disorder with agoraphobia F40.01 ; Chronic post-traumatic stress disorder (PTSD ) F43.12 ; Diabetes E11.9 and Moderate persistent asthma without complication J45.40 [facility] [address] [place] [id number] [place] [address] 96094 2546 22 Jan, 2017 [facility] [address] [place] [id number] [place] [address] 73685 2542 19 Jan, 2017 Acute non-recurrent maxillary sinusitis J01.00 [facility] [address] [place] [id number] [place] [address] 72835- 4146 18 Jan, 2017 [facility] [address] [place] [id number] [place] [address] 88954- 0467 18 Jan, 2017 [facility] [address] [place] [id number] [place] [address] 98220 2547 Jan, Moderate persistent asthma without complication J45.40 and Hypoxemia R09.02 [facility] [address] [place] [id number] [place] [address] 50083 2546 11 Jan, 2017 Moderate persistent asthma without complication J45.40 and Hypoxemia R09.02 [facility] [address] [place] [id number] [place] [address] 41722 2546 Jan, [facility] [address] [place] [id number] [place] [address] 41890 2540 Dec, Acute non-recurrent maxillary sinusitis J01.00 [facility] [address] [place] [address] 18504 2542 Dec, Chronic obstructive pulmonary disease, unspecified J44.9 [facility] [address] [place] [id number] [place] [address] 54906 2546 Dec, [facility] [address] [place] [id number] [place] [address] 67629 2544 Dec, Mild persistent asthma without complication J45.30 and Other chronic pain G89.29 [facility] [address], [place] [address]- 1513 Nov, [facility] [address] [place] [id number] [place] [address] 93274- 3658 Nov, Acute non-recurrent maxillary sinusitis J01.00 [facility] [address] [place] [id number] [place] [address] 35556- 3516 Nov, [facility] [address] [place] [id number] [place] [address] 32949- 1939 Nov, [facility] [address] [place] [id number] [place] [address] 99730- 5002 Oct, [facility] [address] [place] [id number] [place] [address] 21825- 8508 Oct, Bipolar 1 disorder, depressed, partial remission F31.75 ; Panic disorder with agoraphobia F40.01 and Chronic post-traumatic stress disorder (PTSD) F43.12 [facility] [address] [place] [id number] [place] [address] 30987- 6281 Oct, Acute non-recurrent maxillary sinusitis J01.00 [facility] [address] [place] [id number] [place] [address] 44986- 4879 Oct, [facility] [address] [place] [id number] [place] [address] 47310- 0405 Oct, Diabetes E11.9 [facility] [address] [place] [id number] [place] [address] 03910- 0091 September, Diabetes E11.9 [facility] [address] [place] [address] 72686- 9071 September, Diabetes E11.9 and Sinus tachycardia R00.0 [facility] [address] [place] [id number] [place] [address] 47618- 2032 September, [facility] [address] [place] [id number] [place] [address] 70347- 1014 September, [facility] [address], [place] [address]- 6050 13 Aug, 2016 Diabetes E11.9 and Lumbago with sciatica, right side M54.41 [facility] [address], [place] [address]- 3936 Aug, [facility] [address] [place] [id number] [place] [address] 69884- 0893 30 Jul, 2016 Bipolar 1 disorder, depressed, moderate F31.32 ; Panic disorder with agoraphobia F40.01 and Chronic post-traumatic stress disorder ( PTSD) F43.12 [facility] [address] [place] [id number] [place] [address] 35030- 0429 Jul, Sore throat J02.9 [facility] [address] [place] [id number] [place] [address] 31428- 4856 Jul, [facility] [address] [place] [id number] [place] [address] 81376- 6299 Jul, [facility] [address] [place] [address] 27731- 9781 Jul, [facility] [address] [place] [id number] [place] [address] 25489- 8635 Jul, [facility] [address], [place] [address]- 9934 Jul, Sore throat J02.9 and Pharyngitis, unspecified etiology J02.9 [facility] [address], [place] [address]- 4188 Jun, [facility] [address] [place] [address] 55573- 7526 Jun, Diabetes E11.9 [facility] [address], [place] [address]- 8356 Jun, [facility] [address] [place] [address] 76155- 0979 Jun, [facility] [address], [place] [address]- 4073 Jun, [facility] [address], [place] [address]- 7226 Jun, [facility] [address], [place] [address]- 9037 Jun, [facility] [address] [place] [address] 12697- 1511 Jun, [facility] [address], [place] [address]- 7375 Jun, [facility] [address], [place] [address]- 8957 Jun, [facility] [address], [place] [address]- 9981 May, Diabetes E11.9 ; Bipolar I disorder with depression F31.9 ; Other chronic pain G89.29 ; Acute recurrent maxillary sinusitis J01.01 and Anxiety disorder, unspecified F41.9 [facility] [address], [place] [address]- 0923 May, [facility] [address], [place] [address]- 3956 May, Diabetes E11.9 ; Bipolar I disorder with depression F31.9 ; Anxiety disorder, unspecified F41.9 ; Other chronic pain G89.29 and Acute recurrent maxillary sinusitis J01.01 [facility] [address], [place] [address]- 8353 May, [facility] [address], [place] [address]- 6400 May, Attention deficit hyperactivity disorder (ADHD), predominantly inattentive type F90.0 [facility] [address], [place] [address]- 9854 May, [facility] [address] [place] [id number] [place] [address] 14078- 6576 Apr, Attention deficit hyperactivity disorder (ADHD), predominantly inattentive type F90.0 and Non-seasonal allergic rhinitis due to other allergic trigger J30.89 [place] [address] [place] [id number] [place] [address] 89927- 6591 15 Apr, 2016 Bipolar 1 disorder, depressed, moderate F31.32 ; Panic disorder with agoraphobia F40.01 and Chronic post-traumatic stress disorder ( PTSD) F43.12 [place] [address] [place] [id number] [place] [address] 51701- 4607 Apr, Dental examination Z01.20 [place] [address] 06326- 4882 Mar, [place] [address] 93057- 2279 Mar, [place] [address] [place] [id number] [place] [address] 04091- 5250 Mar, Bipolar I disorder with depression F31.9 and Anxiety disorder, unspecified F41.9 [place] [address] [place] [id number] [place] [address] 82333- 3291 Mar, Panic disorder with agoraphobia F40.01 ; Bipolar 1 disorder , depressed, moderate F31.32 and Chronic post-traumatic stress disorder (PTSD) F43.12 [place] [address] [place] [id number] [place] [address] 21584- 7168 Mar, [place] [address] [place] [id number] [place] [address] 73787- 3673 Mar, Dental caries K02.9 [place] [address] 51295- 6856 Feb, Lumbago with sciatica, left side M54.42 ; Lumbago with sciatica, right side M54.41 and Other chronic pain G89.29 [place] [address] [place] [id number] [place] [address] 52930- 6896 17 Feb, 2016 [facility] [address] [place] [address] 51495- 0531 14 Feb, 2016 [facility] [address] [place] [id number] [place] [address] 27827- 0201 Feb, Bipolar I disorder with depression F31.9 ; PTSD (post- traumatic stress disorder) F43.10 and Mood disorder F39 [facility] [address] [place] [id number] [place] [address] 87842- 9771 13 Feb, 2016 [facility] [address] [place] [id number] [place] [address] 96771- 5231 11 Feb, 2016 Dental examination Z01.20 [facility] [address] [place] [id number] [place] [address] 52334- 2224 07 Feb, 2016 [facility] [address] [place] [id number] [place] [address] 95796 -6130 Feb, Acute bronchitis, unspecified organism J20.9 [facility] [address] [place] [place] [id number] [place] [address] 07620- 6605 26 Jan, 2016 Mood disorder F39 ; Migraine without aura and without status migrainosus, not intractable G43.009 ; Irritable bowel syndrome, unspecified type K58.9 ; Diabetes E11.9 and Encounter for immunization Z23 [facility] [address] [place] [address] 14942- 0965 15 Jan, 2016 [facility] [address] [place] [id number] [place] [address] 97567- 0497 06 Jan, 2016 [facility] [address] [id number] [place] [address] 89286- 1057 Jan, [facility] [address] [place] [id number] [place] [address] 69248- 6599 Jan, [facility] [id number] [place] [address] 32508- 0991 Jan, [facility] [address] [place] [address]- 7840 Dec, Bipolar I disorder with depression F31.9 ; PTSD (post- traumatic stress disorder) F43.10 and Panic disorder with agoraphobia F40.01 [facility] [address] [id number] [place] [address] 46111- 7299 Dec, Chronic obstructive pulmonary disease, unspecified COPD type J44.9 ; Tremor R25.1 and Anxiety F41.9 [facility] [id number] [place] [address] 28991- 5834 Dec, [facility] [address] 47564- 4484 Nov, Tremors of nervous system R25.1 and Cramping of feet R25.2 [facility] [id number] [place] [address] 98134- 8683 Nov, [facility] [id number] [place] [address] 01833- 4536 Nov, [facility] [id number] [place] [address] 53188- 0463 Oct, Chronic obstructive pulmonary disease, unspecified J44.9 [facility] [id number] [place] [address] 44419- 0207 Oct, [facility] [id number] [place] [address] 68979- 5748 Oct, Tremor R25.1 [facility] [id number] [place] [address] 59255- 8901 Oct, Bipolar I disorder with depression F31.9 ; Diabetes E11.9 ; PTSD (post-traumatic stress disorder) F43.10 and Panic disorder with agoraphobia F40.01 [facility] [id number] [place] [address] 47433- 5380 Oct, Mood disorder F39 [facility] [id number] [place] [address] 19494- [address] September, [place] [id number] [place] [address]- [phone] September, Diabetes E11.9 ; Bipolar I disorder with depression F31.9 ; PTSD (post-traumatic stress disorder) F43.10 and Panic disorder with agoraphobia F40.01 [place] [id number] [place] [id number] September, Mood disorder F39 ; Schizoaffective disorder, unspecified type F25.9 ; Arthritis M19.90 ; Tremor R25.1 ; Acute non-recurrent frontal sinusitis J01.10 and Blood in stool K92.1 [place] [address] [address] September, [place] [address] [address] September, Chronic obstructive pulmonary disease, unspecified J44.9 [place] [address] [address]- [address] September, Diabetes E11.9 [place] [address] [address]- 7731 Aug, Other bipolar disorder F31.89 and Anxiety disorder, unspecified F41.9 [place] [address] 46253- 9614 Aug, [place] [address] 59199- 4547 Aug, Diabetes E11.9 [place] [address] [place] [id number] [place] [address] 30644- 9174 Aug, [address] [address]- 5074 Aug, Diabetes E11.9 ; Fatigue R53.83 and Dizziness R42 [place] [address] 40841- 0270 Aug, Other bipolar disorder F31.89 [facility] [address] [address] 2546 Aug, Generalized anxiety disorder F41.1 [facility] [id number] [place] [address] 89545 2546 07 Aug, 2015 Other bipolar disorder F31.89 and Anxiety disorder, unspecified F41.9 [facility] [id number] [place] [address] 56777- 6506 Aug, [facility] [address] [place] [id number] [place] [address] 70299- 3476 Jul, [facility] [id number] [place] [address] 35288- 7726 Jul, [facility] [id number] [place] [address] 43599- 9296 Jul, Bronchitis J40 [facility] [id number] [place] [address] 75206 254 Jul, Anxiety disorder F41.9 [facility] [address] [place] [address] 12769- 3490 Jul, Other bipolar disorder F31.89 and Anxiety disorder, unspecified F41.9 [facility] [address], [place] [address] 0527 Jul, Other bipolar disorder F31.89 and Fibromyalgia M79.7 [facility] [address], [place] [address]- 3226 Jul, [facility] [address] [place] [id number] [place] [address] 57472 2546 Jul, [facility] [id number] [place] [address] 73130 2546 Jul, [facility] [address] [place] [address] [id number] [place] [address] 48738- 2546 Jul, Other bipolar disorder F31.89 and Anxiety disorder, unspecified F41.9 [facility] [address] [id number] [place] [address] 10578- 5943 Jun, GERD (gastroesophageal reflux disease) K21.9 [facility] [address] [id number] [place] [address] 74802- 3724 Jun, [facility] [address] [id number] [place] [address] 77165- 5645 May, [facility] [address] 41780- 2856 May, Diabetes E11.9 ; Back pain M54.9 ; GERD (gastroesophageal reflux disease) K21.9 ; Hypertension I10 and Peripheral neuropathy G62.9 [facility] [address] [place] [id number] [place] [address] 07084- 4658 Mar, [facility] [address] [place] [id number] [place] [address] 44386- 0439 Mar, [facility] [id number] [place] [address] 01454- 6449 Mar, Acute sinusitis J01.90 and Otitis media, left H66.92 [facility] [address] [place] [place] [id number] [place] [address] 50446- 4659 Feb, [facility] [address] [place] [id number] [place] [address] 34067- 2690 Feb, [facility] [address] [place] [id number] [place] [address] 05552- 1602 15 Feb, 2015 [facility] [address] [id number] [place] [address] 59163- 0443 13 Feb, 2015 [facility] [address] [place] [id number] [place] [address] 06020- 4527 29 Jan, 2015 [facility] [address] [place] [id number] [place] [address] 59483- 7659 24 Jan, 2015 Diabetes 250.00 and Back pain 724.5 [facility] [address] [id number] [place] [address] 60680- 4731 Jan, [facility] [id number] [place] [address] 40799- 8553 Dec, Diabetes 250.00 ; Benign essential hypertension 401.1 and Allergic rhinitis 477.9 [facility] [address] [id number] [place] [address] 50133- 1215 Dec, [facility] [id number] [place] [address] 45104- 7602 Dec, [facility] [address] [id number] [place] [address] 28259- 5252 Dec, Psychosis 298.9 [facility] [address] 24478- 7683 Dec, Medication side effect 995.20 and Generalized anxiety disorder 300.02 [facility] [address] [place] [id number] [place] [address] 57717- 3242 Dec, Acquired cognitive dysfunction 294.9 [facility] [address] [id number] [place] [address] 49210- 3086 Dec, [facility] [address] [place] [id number] [place] [address] 08312- 9610 Dec, Unspecified myalgia and myositis 729.1 and Generalized anxiety disorder 300.02 [facility] [address] [id number] [place] [address] 83422- 1757 Nov, [facility] [address] [id number] [place] [address] 32202- 1208 Nov, [facility] [address] [place] [id number] [place] [address] 88645- 5250 Nov, [facility] [address] [id number] [place] [address] 65199- 3536 Nov, Upper respiratory infection 465.9 and Chronic airway obstruction, not elsewhere classified 496 [facility] [address] [place] [id number] [place] [address] [place] [address]- 0555 Nov, Hyponatremia 276.1 [facility] [address], [place] [address]- 4542 Oct, [facility] [id number] [address]- 6300 Oct, [facility] [address] [id number] [place] [address] 97165- 6617 Oct, [facility] [id number] [place] [address] 82156- 7144 Oct, [facility] [id number] [place] [address] 99038- 7812 Oct, Hyponatremia 276.1 [facility] [id number] [address]- 5937 Oct, [facility] [id number] [place] [address] 69650- 2430 Oct, [facility] [address], [place] [address]- 1384 Oct, Generalized anxiety disorder 300.02 [facility] [address], [place] [address]- 2909 Oct, Generalized anxiety disorder 300.02 and Diabetes 250.00 [facility] [address], [place] [address]- 2191 Aug, [facility] [address], [place] [address]- 3493 Aug, [facility] [address], [place] [address]- 0815 Jul, [facility] [address], [place] [address]- 9492 Jul, [facility] [address], [place] [address]- 1686 Jun, [facility] [address] [place] [id number] [address]- 6134 Jun, [facility] [place] [facility] [address] [id number] [place] [address]- 4906 Jun, [facility] [place] [facility] [address] [id number] [place] [address] 2546 Jun, [facility] [place] [facility] [address] [id number] [place] [address] 2546 Jun, [facility] [place] [facility] [address] [id number] [place] [address] 2540 May, [facility] [place] [facility] [address] [id number] [place] [address]- 6368 May, [facility] [place] [facility] [address] [id number] [place] [address]- 3949 Apr, [facility] [place] [facility] [address] [id number] [place] [address]- 4561 Apr, [facility] [place] [facility] [address] [id number] [place] [address]- 4809 Apr, [facility] [place] [facility] [address] [id number] [place] [address]- 8179 Apr, [facility] [place] [facility] [address] [id number] [place] [address] 2543 Apr, [facility] [place] [facility] [address] [id number] [place] [address]- 2546 Apr, [facility] [place] [facility] [address] [id number] [place] [address] 2544 Apr, [facility] [place] [facility] [address] [id number] [place] [address] 2546 Apr, [facility] [place] [facility] [address] [id number] [place] [address]- 2546 31 Feb, 2013 [facility] [place] [facility] [address] [id number] [place] [address] 2548 Feb, [facility] [address] [id number] [place] [address] 2545 Jan, [facility] [place] [facility] [address] [id number] [place] [address]- 2546 Jan, [facility] [place] [facility] [address] [id number] [place] [address]- 2546 Dec, [facility] [place] [facility] [address] [id number] [place] [address]- 2546 Dec, [facility] [place] [facility] [address] [id number] [place] [address]- 2546 Dec, [facility] [place] [facility] [address] [id number] [place] [address]- 8136 Nov, [facility] [place] [facility] [address] [id number] [place] [address]- 2546 Nov, [facility] [place] [facility] [address] [id number] [place] [address]- 3451 Nov, [facility] [place] [facility] [address] [id number] [place] [address]- 3703 Oct, [facility] [place] [facility] [address] [id number] [place] [address]- 7236 Oct, [facility] [place] [facility] [address] [id number], [place] [address]- 2546 Oct, [facility] [place] [facility] [address] [id number], [place] [address]- 2546 September, [facility] [place] [facility] [address] [id number] [place] [address]- 2546 September, [facility] [place] [facility] [address] [id number], [place] [address]- 2546 September, [facility] [place] [facility] [address] [id number] [place] [address]- 2546 Aug, [facility] [place] [facility] [address] [id number] [place] [address]- 5748 20 Aug, 2011 [facility] [address] [id number] [place] [address]- 4496 19 Aug, 2011 [facility] [place] [facility] [address] [id number] [place] [address] 2546 16 Aug, 2011 [facility] [address] [id number] [place] [address]- 6953 Jul, [facility] [place] [facility] [address] [id number] [place] [address] 2548 21 Jun, 2011 [facility] [address] [id number] [place] [address]- 4976 14 Jun, 2011 [facility] [place] [facility] [address] [id number] [place] [address]- 2786 13 Jun, 2011 [facility] [address] [id number] [place] [address]- 1566 07 Jun, 2011 [facility] [address] [id number] [place] [address]- 9016 03 Jun, 2011 [facility] [address] [id number] [place] [address]- 6974 May, [facility] [address] [facility] [id number] [place] [address]- 4373 May, [facility] [address] [id number] [place] [address]- 2716 May, [facility] [address] [id number] [place] [address]- 1216 May, [facility] [place] [facility] [address] [id number] [place] [address]- 7336 Apr, [facility] [place] [facility] [address] [id number] [place] [address]- 2546 Apr, [facility] [place] [facility] [address] [id number] [place] [address]- 8747 Apr, [facility] [place] [facility] [address] [id number] [place] [address]- 7841 Mar, [facility] [place] [facility] [address] [id number] [place] [address]- 9077 Mar, [facility] [place] [facility] [address] [id number] [place] [address]- 9899 Mar, [facility] [place] [facility] [address] [id number] [place] [address]- 7794 Feb, [facility] [place] [facility] [address] [id number] [place] [address]- 8341 Feb, [facility] [place] [facility] [address] [id number] [place] [address]- 3982 Feb, [facility] [place] [facility] [address] [id number] [place] [address]- 8330 Nov, [facility] [place] [facility] [address] [id number] [place] [address]- 3352 September, [facility] [place] [facility] [address] [id number] [place] [address]- 7297 Aug, [facility] [place] [facility] [address] [id number] [place] [address]- 4326 14 Jul, 2010 [facility] [place] [facility] [address] [id number] [place] [address]- 5158 May, [facility] [place] [facility] [address] [id number], [place] [address]- 5603 Apr, [facility] [place] [facility] [address] [id number] [place] [address]- 9962 30 Apr, 2010 [facility] [place] [facility] [address] [id number] [place] [address]- 4048 13 Apr, 2010 [facility] [place] [facility] [address] [id number] [place] [address]- 1896 10 Apr, 2010 [facility] [place] [facility] [address] [facility] [place] [place] [id number] [place] [address]- 1670 Apr, IMMUNIZATIONS No Known Immunizations SOCIAL HISTORY Never Assessed REASON FOR VISIT Sleep apnea order PLAN OF CARE VITAL SIGNS MEDICATIONS Unknown [...]
--- OUTSIDE RECORDS SUMMARY | 2017-11-18 07:13 | XMS REPORT ---
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 Name Role Phone WHIT GANDHI Unavailable PROBLEMS Type Condition ICD9-CM Code WHJ45-WG Code Onset Dates Condition Status SNOMED Code Problem Back pain M54.9 Active 390798852 Problem Diabetes E11.9 Active 65831770 Problem GERD (gastroesophageal reflux disease) K21.9 Active 641887341 Problem Hypertension I10 Active 30718395 Problem Anxiety disorder, unspecified F41.9 Active 294944668 Problem Other bipolar disorder F31.89 Active 67861662 Problem Fibromyalgia M79.7 Active 15738825 Problem Panic disorder with agoraphobia F40.01 Active 71172958 Problem Panlobular emphysema J43.1 Active 4061203 Problem Chronic obstructive pulmonary disease, unspecified J44.9 Active 91162768 Problem Akathisia G25.71 Active 088501676 Problem Lumbago with sciatica, left side M54.42 Active 678459479 Problem Migraine without aura and without status migrainosus, not intractable G43.009 Active 472725919 Problem Fibrocystic disease of right breast N60.11 Active 75764975 Problem Fibrocystic disease of left breast N60.12 Active 58627132 Problem Slow transit constipation K59.01 Active 40030122 Problem Essential tremor G25.0 Active 664285036 Problem Bipolar 1 disorder, depressed, moderate F31.32 Active 02511867 Problem Other chronic pain G89.29 Active 69340067 Problem Lumbago with sciatica, right side M54.41 Active 564939647 Problem Irritable bowel syndrome with constipation K58.1 Active 153716492 Problem Arthritis M19.90 Active 5647171 Problem Schizoaffective disorder, bipolar type F25.0 Active 90456122 Problem Irritable bowel syndrome with both constipation and diarrhea K58.2 Active 95975459 Problem Attention deficit hyperactivity disorder (ADHD), predominantly inattentive type F90.0 Active 42283431 Problem Bipolar I disorder with depression F31.9 Active 61655952 Problem Chronic post-traumatic stress disorder (PTSD) F43.12 Active 693990904 Problem Bipolar affective disorder, remission status unspecified F31.9 Active 07957219 Problem Mild persistent asthma without complication J45.30 Active 581567000 Problem Moderate persistent asthma without complication J45.40 Active 573526091 Problem Acute non-recurrent maxillary sinusitis J01.00 Active 10999730 Problem Bipolar 1 disorder, depressed, partial remission F31.75 Active 20767307 ALLERGIES No Information ENCOUNTERS Encounter Location Date Diagnosis [facility] [address] [address]- [address] Nov, [place] [address] 87477- 2493 Nov, [place] [address] [address]199- 6789 Oct, Type 2 diabetes mellitus with diabetic neuropathy, unspecified whether lobsterman insulin use E11.40 ; Diabetes E11.9 ; Slow transit constipation K59.01 ; Edema of both legs R60.0 and Dysfunction of right eustachian tube H69.81 [place] [address] 12692- 6619 Oct, Frequent headaches R51 [place] [address] [place] [id number] [place] [address] 94692- 1015 Oct, [facility] [address] [id number] [place] [address] 71671- 9422 Oct, [facility] [address] [id number] [place] [address] 68732- 7585 Oct, [place] [address] 11059- 2909 18 Oct, 2017 [facility] [address] [place] [id number] [place] [address] 42682- 3178 15 Oct, 2017 [facility] [address] 52352- 8744 Oct, [facility] [id number] [address] 3430 Oct, [facility] [address] [id number] [place] [address] 15268- 7357 Oct, [facility] [id number] [place] [address] 01727- 5370 September, Frequent headaches R51 [facility] [address] [id number] [place] [address] 29144- 3065 September, Bilateral otitis media with effusion H65.93 ; Dizziness R42 and Essential tremor G25.0 [facility] [address] [id number] [place] [address] 94580- 9306 September, Chronic obstructive pulmonary disease, unspecified COPD type J44.9 [facility] [id number] [place] [address] 33606- 1403 September, Chronic obstructive pulmonary disease, unspecified COPD type J44.9 [facility] [address] [id number] [place] [address] 25379- 8750 September, Migraine without aura and without status migrainosus, not intractable G43.009 [facility] [address] [address]- 4[address] September, [facility] [address] [place] [id number] [place] [address] 38978- 3589 September, [facility] [id number] [place] [address] 42526- 3010 September, [facility] [address] [id number] [place] [address] 23043- 3744 September, Frequent headaches R51 [facility] [address] [id number] [place] [address] 78951- 5349 Aug, [facility] [address] [id number] [place] [address] 98065- 4476 Aug, Breast mass, right N63.10 [place] [address] [place] [id number] [place] [address] 55931- 5532 Aug, Breast lump N63.0 [place] [address] [place] [id number] [place] [address] 29627- 8455 Aug, [place] [address] [place] [id number] [place] [address] 83858- 3063 Aug, Bipolar affective disorder, remission status unspecified F31.9 and Diabetes E11.9 [place] [address] [place] [id number] [place] [address] 01978- 9047 Aug, Diabetes E11.9 ; Schizoaffective disorder, bipolar type F25.0 ; Pharyngitis due to other organism J02.8 ; Panlobular emphysema J43.1 and Irritable bowel syndrome with both constipation and diarrhea K58.2 [place] [address] [place] [id number] [place] [address] 74920- 2595 Aug, Abnormal mammogram R92.8 [place] [address] [place] [id number] [place] [address] 75912- 2499 Aug, [place] [address] [place] [id number] [place] [address] 37114- 2693 Aug, Bipolar 1 disorder, depressed, moderate F31.32 ; Panic disorder with agoraphobia F40.01 and Chronic post-traumatic stress disorder ( PTSD) F43.12 [place] [address] [place] [id number] [place] [address] 45044- 5589 Aug, [place] [address] [place] [id number] [place] [address] 20489- 0257 Aug, [place] [address] [place] [id number] [place] [address] 02017- 4793 Aug, [place] [address] [place] [id number] [place] [address] 34333- 4314 Jul, [place] [address] [place] [id number] [place] [address] 78779- 2713 20 Jul, 2017 Mild persistent asthma without complication J45.30 [facility] [id number] [place] [address] 66728- 0175 19 Jul, 2017 Mild persistent asthma without complication J45.30 [facility] [address] [place] [id number] [place] [address] 14476- 5803 15 Jul, 2017 Bipolar affective disorder, remission status unspecified F31.9 ; Diabetes E11.9 and Irritable bowel syndrome with constipation K58.1 [facility] [address] [place] [id number] [place] [address] 51591- 5757 13 Jul, 2017 [facility] [address] [place] [id number] [place] [address] 46399- 7166 09 Jul, 2017 [facility] [address] [place] [id number] [place] [address] 14880- 6621 Jul, Frequent headaches R51 [facility] [address] [place] [id number] [place] [address] 57472- 8358 07 Jul, 2017 [facility] [address] [place] [id number] [place] [address] 86513- 7820 Jul, [facility] [address] [place] [id number] [place] [address] 75778- 8963 Jul, [facility] [address] [place] [id number] [place] [address] 84286- 7786 Jul, Frequent headaches R51 ; Fibrocystic disease of left breast N60.12 ; Fibrocystic disease of right breast N60.11 and Diabetes E11.9 [facility] [address] [address]- 0045 Jul, [facility] [address] [place] [id number] [place] [address] 81686- 7847 Jul, [facility] [id number] [place] [address] 74273- 8715 Jun, Exudative tonsillitis J03.90 [facility] [address] [place] [id number] [place] [address] 78572- 5145 20 Jun, 2017 [facility] [address] 30250- 0166 Jun, [facility] [address] 72621- 1564 15 Jun, 2017 Mild persistent asthma without complication J45.30 ; Chronic obstructive pulmonary disease, unspecified COPD type J44.9 and Exudative tonsillitis J03.90 [facility] [address] 01253- 6416 13 Jun, 2017 Encounter for immunization Z23 [facility] [address] 15382- 3789 Jun, [facility] [address] 71030- 1271 Jun, [facility] [address] 72058- 8863 Jun, [facility] [address] 08561 -9073 06 Jun, 2017 Tonsillitis J03.90 [facility] [address] [place] [id number] [place] [address] 78258- 1255 05 Jun, 2017 [facility] [address] [place] [id number] [place] [address] 12476- 9766 Jun, Acute non-recurrent maxillary sinusitis J01.00 [facility] [address] [place] [id number] [place] [address] 23273- 0166 Jun, [facility] [address] 67164- 0261 May, [facility] [address] [place] [id number] [place] [address] 31369- 7594 May, [facility] [address] [place] [id number] [place] [address] 36052- 6762 May, GERD (gastroesophageal reflux disease) K21.9 [facility] [address] [place] [id number] [place] [address] 16340- 4732 May, Migraine without aura and without status migrainosus, not intractable G43.009 [place] [address] 72296- 5554 May, [place] [address] 97643- 9214 May, [place] [address] 79797- 7845 May, Panlobular emphysema J43.1 and Acute non-recurrent maxillary sinusitis J01.00 [place] [address] 14164- 1338 May, Bipolar 1 disorder, depressed, moderate F31.32 ; Panic disorder with agoraphobia F40.01 and Akathisia G25.71 [place] [address] [place] [id number] [place] [address] 84212- 0350 Apr, [place] [address] 37270- 0642 Apr, [place] [address] [place] [id number] [place] [address] 67444- 3977 Apr, Acute non-recurrent maxillary sinusitis J01.00 [place] [address] [place] [id number] [place] [address] 74056- 4525 Apr, Panlobular emphysema J43.1 [place] [address] 03337- 5733 Apr, [facility] [address] 55966 -7021 Apr, Exudative tonsillitis J03.90 and Sore throat J02.9 [place] [address] 54417- 9431 Mar, [facility] [address] [address]- 0510 Mar, Acute non-recurrent maxillary sinusitis J01.00 [facility] [address] [place] [id number] [place] [address] 16979- 7243 Mar, [facility] [address] [place] [id number] [place] [address] 51803- 3304 Mar, Panlobular emphysema J43.1 and Diabetes E11.9 [place] [address] [place] [id number] [place] [address] 75268- 9206 Mar, [facility] [address] [place] [id number] [place] [address] 66248 -3194 24 Feb, 2017 Wheezing R06.2 and Acute recurrent pansinusitis J01.41 [place] [address] [place] [id number] [place] [address] 57111- 1324 Feb, [facility] [address] [place] [id number] [place] [address] 48200- 5110 Feb, Acute non-recurrent maxillary sinusitis J01.00 [place] [address] [place] [id number] [place] [address] 33153- 1454 Feb, Chronic obstructive pulmonary disease, unspecified J44.9 [place] [address] [place] [id number] [place] [address] 95739- 4605 Feb, Hypoxemia R09.02 and Chronic obstructive pulmonary disease, unspecified J44.9 [facility] [address] [place] [id number] [place] [address] 93227- 4326 28 Jan, 2017 Bipolar 1 disorder, depressed, moderate F31.32 ; Panic disorder with agoraphobia F40.01 ; Chronic post-traumatic stress disorder (PTSD ) F43.12 ; Diabetes E11.9 and Moderate persistent asthma without complication J45.40 [facility] [id number] [address]- 6107 Jan, [place] [address] [place] [address] [place] [address]- 0400 Jan, Acute non-recurrent maxillary sinusitis J01.00 [facility] [address] [place] [id number] [place] [address] 05623- 3046 18 Jan, 2017 [facility] [address] [id number] [place] [address] 20514- 3096 Jan, [facility] [address] 43452 2546 Jan, Moderate persistent asthma without complication J45.40 and Hypoxemia R09.02 [facility] [address] 99767 2546 Jan, Moderate persistent asthma without complication J45.40 and Hypoxemia R09.02 [facility] [address] [place] [id number] [place] [address] 56903- 7776 Jan, [facility] [address] 95920- 7402 Dec, Acute non-recurrent maxillary sinusitis J01.00 [facility] [address] [id number] [place] [address] 10337- 4878 Dec, Chronic obstructive pulmonary disease, unspecified J44.9 [facility] [id number] [place] [address] 16672- 1793 Dec, [facility] [address] [id number] [place] [address] 09265 2545 Dec, Mild persistent asthma without complication J45.30 and Other chronic pain G89.29 [facility] [id number] [place] [address] 17949- 8026 Nov, [facility] [address] [id number] [place] [address]- 2546 Nov, Acute non-recurrent maxillary sinusitis J01.00 [facility] [id number] [place] [address] 04188- 2426 Nov, [facility] [address] [address]- 7687 Nov, [facility] [address] [id number] [place] [address] 68029- 7834 Oct, [facility] [id number] [address]- 2660 Oct, Bipolar 1 disorder, depressed, partial remission F31.75 ; Panic disorder with agoraphobia F40.01 and Chronic post-traumatic stress disorder (PTSD) F43.12 [facility] [address] [id number] [place] [address] 07211- 1103 Oct, Acute non-recurrent maxillary sinusitis J01.00 [place] [address] [id number] [place] [address] 57195- 6299 Oct, [place] [address] [place] [address] [id number] [place] [address] 37083- 3035 Oct, Diabetes E11.9 [facility] [address] [id number] [place] [address] 34044- 5747 September, Diabetes E11.9 [place] [address] [id number] [place] [address] 62366- 1573 September, Diabetes E11.9 and Sinus tachycardia R00.0 [facility] [id number] [place] [address] 01978- 5661 September, [facility] [address] [id number] [place] [address] 55495- 9390 September, [facility] [id number] [place] [address] 42851- 9346 Aug, Diabetes E11.9 and Lumbago with sciatica, right side M54.41 [facility] [address] [address]- 5388 Aug, [facility] [id number] [place] [address] 24509- 6205 30 Mar, 2017 Bipolar 1 disorder, depressed, moderate F31.32 ; Panic disorder with agoraphobia F40.01 and Chronic post-traumatic stress disorder ( PTSD) F43.12 [facility] [id number] [place] [address] 28492- 1243 Jul, Sore throat J02.9 [facility] [id number] [place] [address] 11533- 5160 Jul, [facility] [id number] [place] [address] 70487- 1946 Jul, [facility] [id number] [place] [address] 76287- 7589 Jul, [facility] [id number] [place] [address] 16406- 0071 Jul, [facility] [id number] [place] [address] 70047- 9301 Jul, Sore throat J02.9 and Pharyngitis, unspecified etiology J02.9 [facility] [id number] [place] [address] 32044- 9591 Jun, [facility] [id number] [place] [address] 22265- 5243 Jun, Diabetes E11.9 [facility] [id number] [address]- 8331 Jun, [facility] [id number] [place] [address] 33540- 5839 Jun, [facility] [id number] [place] [address] 79870- 0654 Jun, [facility] [id number] [place] [address] 51878- 6153 Jun, [facility] [id number] [place] [address] 23715- 6671 Jun, [facility] [address] [place] [address]- 3232 15 Jun, 2016 [facility] [address] [address]- 6473 Jun, [facility] [id number] [place] [address] 29180- 5777 Jun, [facility] [id number] [place] [address] 34852- 6686 May, Diabetes E11.9 ; Other chronic pain G89.29 ; Acute recurrent maxillary sinusitis J01.01 ; Bipolar I disorder with depression F31.9 and Anxiety disorder, unspecified F41.9 [facility] [id number] [place] [address] 81083- 4273 May, [facility] [id number] [place] [address] 28857- 8145 May, Diabetes E11.9 ; Bipolar I disorder with depression F31.9 ; Anxiety disorder, unspecified F41.9 ; Other chronic pain G89.29 and Acute recurrent maxillary sinusitis J01.01 [facility] [id number] [place] [address] 50874- 2489 May, [facility] [id number] [place] [address] 19553- 1130 May, Attention deficit hyperactivity disorder (ADHD), predominantly inattentive type F90.0 [facility] [address] [address]- 2570 May, [facility] [id number] [place] [address] 36235- 4330 Apr, Attention deficit hyperactivity disorder (ADHD), predominantly inattentive type F90.0 and Non-seasonal allergic rhinitis due to other allergic trigger J30.89 [facility] [address] [address]- 9428 Apr, Bipolar 1 disorder, depressed, moderate F31.32 ; Panic disorder with agoraphobia F40.01 and Chronic post-traumatic stress disorder ( PTSD) F43.12 [facility] [address] [address]- 2261 Apr, Dental examination Z01.20 [facility] [id number] [address]- 9051 Mar, [facility] [id number] [place] [address] 23368- 2263 Mar, [facility] [id number] [place] [address] 13986- 2761 Mar, Bipolar I disorder with depression F31.9 and Anxiety disorder, unspecified F41.9 [place] [id number] [place] [address] 56423- 3748 08 Mar, 2016 Panic disorder with agoraphobia F40.01 ; Bipolar 1 disorder , depressed, moderate F31.32 and Chronic post-traumatic stress disorder (PTSD) F43.12 [place] [id number] [place] [address] 37139- 5375 Mar, [place] [id number] [place] [address] 61428- 8358 Mar, Dental caries K02.9 [place] [id number] [place] [address] 46879- 0032 24 Feb, 2016 Lumbago with sciatica, left side M54.42 ; Lumbago with sciatica, right side M54.41 and Other chronic pain G89.29 [facility] [address] [address]- 3423 17 Feb, 2016 [place] [id number] [place] [address] 99039- 6216 14 Feb, 2016 [facility] [id number] [place] [address] 62494- 6229 13 Feb, 2016 Bipolar I disorder with depression F31.9 ; PTSD (post- traumatic stress disorder) F43.10 and Mood disorder F39 [place] [id number] [place] [address] 43944- 7217 13 Feb, 2016 [facility] [id number] [place] [address] 36617- 8145 11 Feb, 2016 Dental examination Z01.20 [facility] [id number] [place] [address] [phone] 07 Feb, 2016 [facility] [address] [phone] Feb, Acute bronchitis, unspecified organism J20.9 [facility] [id number] [place] [address] [phone] Jan, Mood disorder F39 ; Migraine without aura and without status migrainosus, not intractable G43.009 ; Irritable bowel syndrome, unspecified type K58.9 ; Diabetes E11.9 and Encounter for immunization Z23 [place] [id number] [place] [address] [phone] 15 Jan, 2016 [facility] [id number] [place] [address] [phone]- [phone] 06 Jan, 2016 [place] [id number] [place] [address] [phone] Jan, [facility] [id number] [place] [address] [phone] Jan, [place] [id number] [place] [address] [phone] Jan, [facility] [id number] [place] [address] [phone] Dec, Bipolar I disorder with depression F31.9 ; PTSD (post- traumatic stress disorder) F43.10 and Panic disorder with agoraphobia F40.01 [facility] [id number] [place] [address] [phone]- [phone] Dec, Chronic obstructive pulmonary disease, unspecified COPD type J44.9 ; Tremor R25.1 and Anxiety F41.9 [facility] [address] [address] Dec, [facility] [address] [address] Nov, Tremors of nervous system R25.1 and Cramping of feet R25.2 [facility] [address] [address] 2747 Nov, [facility] [address] [address] 2516 Nov, [facility] [id number] [place] [address] 26624- 4605 Oct, Chronic obstructive pulmonary disease, unspecified J44.9 [facility] [address] [address] 2013 Oct, [facility] [address] [address] 9099 Oct, Tremor R25.1 [facility] [address], [place] [address] 386[address] Oct, Bipolar I disorder with depression F31.9 ; Diabetes E11.9 ; PTSD (post-traumatic stress disorder) F43.10 and Panic disorder with agoraphobia F40.01 [facility] [address] [address] 9[address] Oct, Mood disorder F39 [facility] [address] [address] September, [facility] [address] [address] 47[address] September, Diabetes E11.9 ; Bipolar I disorder with depression F31.9 ; PTSD (post-traumatic stress disorder) F43.10 and Panic disorder with agoraphobia F40.01 [facility] [address] [address] 92[address] September, Mood disorder F39 ; Schizoaffective disorder, unspecified type F25.9 ; Arthritis M19.90 ; Tremor R25.1 ; Acute non-recurrent frontal sinusitis J01.10 and Blood in stool K92.1 [place] [facility] [id number] [place] [address] 43765- 6070 September, [place] [facility] [address] 809267- 1187 September, Chronic obstructive pulmonary disease, unspecified J44.9 [facility] [address] 715335- 8444 September, Diabetes E11.9 [facility] [facility] [address] 368636- 1660 Aug, Other bipolar disorder F31.89 and Anxiety disorder, unspecified F41.9 [facility] [facility] [address] 38395- 7709 Aug, [place] [facility] [address] 28946- 8072 Aug, Diabetes E11.9 [place] [facility] [address] 18113- 7986 Aug, [place] [facility] [address] 87675- 3547 14 Aug, 2015 Diabetes E11.9 ; Fatigue R53.83 and Dizziness R42 [place] [id number] [place] [address] 29113- 3976 Aug, Other bipolar disorder F31.89 [place] [facility] [address] 05406- 7727 Aug, Generalized anxiety disorder F41.1 [place] [facility] [address] 90807- 8235 Aug, Other bipolar disorder F31.89 and Anxiety disorder, unspecified F41.9 [place] [facility] [address] 22944- 5615 Aug, [facility] [id number] [place] [address] 71019- 3772 Jul, [facility] [id number] [place] [address] 70630- 1006 Jul, [facility] [id number] [place] [address] 81923- 4376 Jul, Bronchitis J40 [facility] [id number] [place] [address] 41495- 9369 Jul, Anxiety disorder F41.9 [facility] [id number] [place] [address] 54690- 8725 Jul, Other bipolar disorder F31.89 and Anxiety disorder, unspecified F41.9 [facility] [id number] [place] [address] 69696- 1400 Jul, Other bipolar disorder F31.89 and Fibromyalgia M79.7 [facility] [id number] [place] [address] 14948- 7233 Jul, [facility] [id number] [place] [address] 35080- 0358 Jul, [facility] [id number] [place] [address] 58680- 1570 Jul, [facility] [id number] [place] [address] 19468- 2543 Jul, Other bipolar disorder F31.89 and Anxiety disorder, unspecified F41.9 [facility] [address] [place] [address] 43257- 0738 Jun, GERD (gastroesophageal reflux disease) K21.9 [facility] [address] [address]- 9886 Jun, [facility] [id number] [place] [address] 34791- 1689 May, [facility] [id number] [place] [address] 05763- 8802 May, Diabetes E11.9 ; Back pain M54.9 ; GERD (gastroesophageal reflux disease) K21.9 ; Hypertension I10 and Peripheral neuropathy G62.9 [facility] [id number] [place] [address] 78401- 7937 Mar, [facility] [address] 31737- 2704 Mar, [facility] [id number] [place] [address] 03705- 0553 Mar, Acute sinusitis J01.90 and Otitis media, left H66.92 [facility] [id number] [place] [address] 51847- 7234 Feb, [facility] [id number] [place] [address] 79376- 0586 Feb, [facility] [id number] [place] [address] 46974- 3492 Feb, [facility] [id number] [place] [address] 57452- 4777 Feb, [facility] [id number] [place] [address] 82790- 4088 Jan, [facility] [id number] [place] [address] 78231- 0210 Jan, Diabetes 250.00 and Back pain 724.5 [facility] [id number] [place] [address] 74307- 7521 Jan, [facility] [id number] [place] [address] 39783- 3499 Dec, Diabetes 250.00 ; Benign essential hypertension 401.1 and Allergic rhinitis 477.9 [facility] [id number] [place] [address] 03266- 5605 Dec, [facility] [address] [address]- 1137 Dec, [facility] [id number] [place] [address] 82764- 9041 Dec, Psychosis 298.9 [facility] [id number] [place] [address] 43387- 0438 10 Dec, 2014 Medication side effect 995.20 and Generalized anxiety disorder 300.02 [facility] [id number] [place] [address] 31652- 7991 Dec, Acquired cognitive dysfunction 294.9 [facility] [id number] [place] [address] 34866- 9281 Dec, [facility] [id number] [place] [address] 20526- 4804 Dec, Unspecified myalgia and myositis 729.1 and Generalized anxiety disorder 300.02 [facility] [id number] [place] [address] 74269- 0837 Nov, [facility] [id number] [place] [address] 84030- 0321 Nov, [facility] [id number] [place] [address] 76878- 1168 Nov, [facility] [id number] [place] [address] 93561- 0316 Nov, Upper respiratory infection 465.9 and Chronic airway obstruction, not elsewhere classified 496 [facility] [id number] [place] [address] 11593- 5213 Nov, Hyponatremia 276.1 [facility] [id number] [place] [address] 41465- 7676 Oct, [facility] [id number] [place] [address] 83098- 5023 Oct, [facility] [id number] [place] [address] 17282- 6403 Oct, [facility] [address], [place] [address]- 3405 Oct, [facility] [address], [place] [address]- 9872 Oct, Hyponatremia 276.1 [facility] [address] [address]- 4861 Oct, [facility] [id number] [place] [address] 49975- 0686 Oct, [facility] [id number] [place] [address] 18144- 1569 Oct, Generalized anxiety disorder 300.02 [facility] [id number] [place] [address] 54687- 3558 Oct, Generalized anxiety disorder 300.02 and Diabetes 250.00 [facility] [id number] [place] [address] 45708- 0418 Aug, [facility] [address], [place] [address]- 0831 Aug, [facility] [address] [address]- 1290 Jul, [facility] [address] [address]- 2153 Jul, [facility] [address] [address]- 3660 Jun, [facility] [address], [place] [address]- 9931 Jun, [facility] [address] [address]- 0597 Jun, [facility] [address] 8420 Jun, [facility] [address], [place] [address]- 4461 Jun, [facility] [address] [id number] [place] [address]- 1739 May, [facility] [place] [facility] [address] [id number] [place] [address]- 9502 May, [facility] [address] [id number] [place] [address]- 9296 Apr, [facility] [place] [facility] [address] [id number] [place] [address]- 4085 Apr, [facility] [place] [facility] [address] [id number] [place] [address]- 3783 Apr, [facility] [place] [facility] [address] [id number] [place] [address]- 0982 Apr, [facility] [address] [id number] [place] [address]- 8456 Apr, [facility] [place] [facility] [address] [id number] [place] [address]- 3433 Apr, [facility] [place] [facility] [address] [id number] [place] [address]- 7136 Apr, [facility] [place] [facility] [address] [id number] [place] [address]- 6569 Apr, [facility] [place] [facility] [address] [id number] [address]- 8763 Feb, [facility] [place] [facility] [address] [id number] [address]- 3079 Feb, [facility] [place] [facility] [address] [id number] [place] [address]- 0022 Jan, [facility] [place] [facility] [address] [id number] [place] [address]- 1884 Jan, [facility] [place] [facility] [address] [id number] [place] [address]- 3522 Dec, [facility] [place] [facility] [address] [id number] [place] [address] 2546 Dec, [facility] [address] [id number] [place] [address]- 0131 Dec, [facility] [place] [facility] [address] [id number] [place] [address]- 2546 Nov, [facility] [place] [facility] [address] [id number] [place] [address] 2546 Nov, [facility] [place] [facility] [address] [id number] [place] [address] 2543 Nov, [facility] [address] [id number] [place] [address]- 5593 Oct, [facility] [place] [facility] [address] [id number] [place] [address]- 4077 Oct, [facility] [place] [facility] [address] [id number] [place] [address]- 0738 Oct, [facility] [address] [id number] [place] [address]- 5437 September, [facility] [place] [facility] [address] [id number] [place] [address]- 7561 September, [facility] [address] [id number] [place] [address]- 2416 September, [facility] [place] [facility] [address] [id number] [place] [address]- 7883 Aug, [facility] [place] [facility] [address] [id number] [place] [address]- 9271 Aug, [facility] [place] [facility] [address] [id number] [place] [address]- 7730 Aug, [facility] [place] [facility] [address] [id number] [place] [address]- 2546 Aug, [facility] [place] [facility] [address] [id number] [place] [address]- 0141 Jul, [facility] [place] [facility] [address] [id number] [place] [address]- 4708 Jun, [facility] [place] [facility] [address] [id number] [place] [address]- 2946 14 Jun, 2011 [facility] [place] [facility] [address] [id number] [place] [address]- 9236 13 Jun, 2011 [facility] [place] [facility] [address] [id number] [place] [address]- 8304 07 Jun, 2011 [facility] [place] [facility] [address] [id number] [place] [address]- 7576 Jun, [facility] [place] [facility] [address] [id number] [place] [address]- 7971 13 May, 2011 [facility] [place] [facility] [address] [id number] [place] [address]- 5235 May, [facility] [place] [facility] [address] [id number] [place] [address]- 5624 May, [facility] [place] [facility] [address] [id number] [place] [address]- 1128 May, [facility] [place] [facility] [address] [id number] [place] [address]- 8872 Apr, [facility] [place] [facility] [address] [id number] [place] [address]- 7100 Apr, [facility] [place] [facility] [address] [id number] [place] [address]- 3482 05 Apr, 2011 [facility] [place] [facility] [address] [id number] [place] [address]- 2925 Mar, [facility] [place] [facility] [address] [id number] [place] [address]- 8970 Mar, [facility] [place] [facility] [address] [id number] [place] [address]- 1026 Mar, [facility] [place] [facility] [address] [address]- 3834 13 Feb, 2011 [facility] [id number] [address]- 3826 13 Feb, 2011 [facility] [address], [place] [address]- 6986 13 Feb, 2011 [facility] [id number] [address]- 2444 Nov, [facility] [address], [place] [address]- 3172 September, [facility] [address], [place] [address]- 0577 Aug, [facility] [address], [place] [address]- 3996 Jul, [facility] [address], [place] [address]- 6512 May, [facility] [address], [place] [address]- 3426 Apr, [facility] [address], [place] [address]- 9805 Apr, [facility] [id number] [address]- 6542 Apr, [facility] [id number] [address]- 3973 Apr, [facility] [id number] [address]- 2470 Apr, IMMUNIZATIONS No Known Immunizations SOCIAL HISTORY Never Assessed REASON FOR VISIT requesting a returned [facility] PLAN OF CARE VITAL SIGNS MEDICATIONS Unknown [...]
[2017-11-18 07:14] LABS: BASOPHILS % (AUTO) 0 % (0-10); EOSINOPHILS # (AUTO) 0.2 10^3/uL (0.0-0.3); EOSINOPHILS % (AUTO) 2 % (0-10); HEMATOCRIT 43 % (35-52); HEMOGLOBIN 16.1 G/DL (11.5-16.0); LYMPHOCYTES % (AUTO) 36 % (12-44); MEAN CORPUSCULAR HEMOGLOBIN 32 PG (25-34); MEAN CORPUSCULAR HGB CONC 37 G/DL (32-36); MEAN CORPUSCULAR VOLUME 87 FL (80-99); MEAN PLATELET VOLUME 9.6 FL (7.4-10.4); MONOCYTES # (AUTO) 0.8 X 10^3 (0.0-1.0); MONOCYTES % (AUTO) 9 % (0-12); NEUTROPHILS # (AUTO) 4.5 X 10^3 (1.8-7.8); NEUTROPHILS % (AUTO) 53 % (42-75); PLATELET COUNT 260 10^3/uL (130-400); RED BLOOD COUNT 4.99 10^6/uL (4.35-5.85); RED CELL DISTRIBUTION WIDTH 13.4 % (10.0-14.5); WHITE BLOOD COUNT 8.4 10^3/uL (4.3-11.0)
--- OUTSIDE RECORDS SUMMARY | 2017-11-18 07:14 | XMS REPORT ---
Author Author WHIT GANDHI [facility] Address [address] [place] [address] Care Team Providers Care Event Coordinator Name Role Phone WHIT GANDHI Unavailable PROBLEMS Type Condition ICD9-CM Code QRC77-KS Code Onset Dates Condition Status SNOMED Code Problem GERD (gastroesophageal reflux disease) K21.9 Active 929739333 Problem Back pain M54.9 Active 272355818 Problem Diabetes E11.9 Active 78178151 Problem Hypertension I10 Active 45063715 Problem Anxiety disorder, unspecified F41.9 Active 407402642 Problem Other bipolar disorder F31.89 Active 74124030 Problem Fibromyalgia M79.7 Active 49378444 Problem Moderate persistent asthma without complication J45.40 Active 328312814 Problem Panic disorder with agoraphobia F40.01 Active 60275621 Problem Panlobular emphysema J43.1 Active 9420205 Problem Chronic obstructive pulmonary disease, unspecified J44.9 Active 33890046 Problem Akathisia G25.71 Active 335834371 Problem Fibrocystic disease of left breast N60.12 Active 39306606 Problem Migraine without aura and without status migrainosus, not intractable G43.009 Active 873459115 Problem Essential tremor G25.0 Active 739962923 Problem Schizoaffective disorder, bipolar type F25.0 Active 12496366 Problem Other chronic pain G89.29 Active 20708154 Problem Lumbago with sciatica, right side M54.41 Active 316339948 Problem Lumbago with sciatica, left side M54.42 Active 519353443 Problem Arthritis M19.90 Active 2436350 Problem Fibrocystic disease of right breast N60.11 Active 76731796 Problem Irritable bowel syndrome with both constipation and diarrhea K58.2 Active 86671206 Problem Irritable bowel syndrome with constipation K58.1 Active 235000474 Problem Bipolar affective disorder, remission status unspecified F31.9 Active 81058505 Problem Attention deficit hyperactivity disorder (ADHD), predominantly inattentive type F90.0 Active 35890996 Problem Bipolar 1 disorder, depressed, moderate F31.32 Active 11721288 Problem Chronic post-traumatic stress disorder (PTSD) F43.12 Active 340527562 Problem Bipolar 1 disorder, depressed, partial remission F31.75 Active 62926732 Problem Mild persistent asthma without complication J45.30 Active 987116380 Problem Bipolar I disorder with depression F31.9 Active 39505767 Problem Acute non-recurrent maxillary sinusitis J01.00 Active 54619144 ALLERGIES No Information ENCOUNTERS Encounter Location Date Diagnosis [facility] [id number] [place] [address] 69549- 8858 Nov, [facility] [address] 51132- 0091 Oct, [facility] [address] 00933- 6579 Oct, [place] [address] 80666- 3094 Oct, [facility] [id number] [place] [address] 32908- 1405 Oct, [facility] [address] 58732- 5339 Oct, [facility] [id number] [place] [address] 55445- 9657 Oct, [facility] [address] 15910- 0964 September, Frequent headaches R51 [facility] [id number] [place] [address] 56895- 8237 September, Bilateral otitis media with effusion H65.93 ; Dizziness R42 and Essential tremor G25.0 [facility] [id number] [place] [address] 62330- 9275 September, Chronic obstructive pulmonary disease, unspecified COPD type J44.9 [facility] [address] 42108- 7228 September, Chronic obstructive pulmonary disease, unspecified COPD type J44.9 [facility] [id number] [place] [address] 13490- 6714 September, Migraine without aura and without status migrainosus, not intractable G43.009 [facility] [id number] [place] [address] 88511- 1466 September, [facility] [address] 63109- 3008 September, [facility] [id number] [place] [address] 64613- 4207 September, [facility] [address] 35179- 1758 September, Frequent headaches R51 [place] [address] 38262- 3470 Aug, [facility] [address] 23371- 8426 Aug, Breast mass, right N63.10 [place] [address] 99110- 0271 Aug, Breast lump N63.0 [place] [id number] [place] [address] 96490- 9127 Aug, [facility] [id number] [place] [address] 34667- 5578 Aug, Bipolar affective disorder, remission status unspecified F31.9 and Diabetes E11.9 [place] [id number] [place] [address] 89668- 1044 Aug, Diabetes E11.9 ; Schizoaffective disorder, bipolar type F25.0 ; Pharyngitis due to other organism J02.8 ; Panlobular emphysema J43.1 and Irritable bowel syndrome with both constipation and diarrhea K58.2 [place] [id number] [place] [address] 47814- 2995 Aug, Abnormal mammogram R92.8 [facility] [id number] [place] [address] 17086- 0486 Aug, [facility] [id number] [place] [address] 98515- 9982 Aug, Bipolar 1 disorder, depressed, moderate F31.32 ; Panic disorder with agoraphobia F40.01 and Chronic post-traumatic stress disorder ( PTSD) F43.12 [facility] [id number] [place] [address] 51774- 2456 Aug, [place] [address] 99622- 3216 Aug, [place] [id number] [place] [address] 60005- 5162 Aug, [place] [id number] [place] [address] 48787- 0860 Jul, [facility] [id number] [place] [address] 95588- 6082 Jul, Mild persistent asthma without complication J45.30 [place] [id number] [place] [address] 30561- 6110 Jul, Mild persistent asthma without complication J45.30 [place] [id number] [place] [address] 02231- 4277 Jul, Bipolar affective disorder, remission status unspecified F31.9 ; Diabetes E11.9 and Irritable bowel syndrome with constipation K58.1 [facility] [id number] [place] [address] 50613- 3694 Jul, [facility] [id number] [place] [address] 03754- 6956 Jul, [place] [id number] [place] [address] 84757- 1014 Jul, Frequent headaches R51 [place] [address] [place] [address]- 3222 Jul, [facility] [id number] [place] [address] 59989- 2557 Jul, [facility] [id number] [place] [address] 27773- 3703 Jul, [facility] [id number] [place] [address] 94515- 0035 Jul, Frequent headaches R51 ; Fibrocystic disease of left breast N60.12 ; Fibrocystic disease of right breast N60.11 and Diabetes E11.9 [facility] [id number] [place] [address] 31824- 4089 Jul, [facility] [id number] [place] [address] 14428- 9237 Jul, [facility] [id number] [place] [address] 59572- 3867 Jun, Exudative tonsillitis J03.90 [facility] [id number] [place] [address] 13293- 3160 20 Jun, 2017 [facility] [id number] [place] [address] 31527- 4562 19 Jun, 2017 [place] [address] [place] [address] 57551- 7453 15 Jun, 2017 Mild persistent asthma without complication J45.30 ; Chronic obstructive pulmonary disease, unspecified COPD type J44.9 and Exudative tonsillitis J03.90 [facility] [address] [place] [address] 80230- 3648 13 Jun, 2017 Encounter for immunization Z23 [facility] [id number] [place] [address] 51572- 5744 Jun, [facility] [address] [place] [address] 80810- 2031 Jun, [facility] [id number] [place] [address] 60138- 2423 09 Jun, 2017 [facility] [id number] [place] [address] 82715 -7400 06 Jun, 2017 Tonsillitis J03.90 [facility] [id number] [place] [address] 34860- 3222 Jun, [facility] [address] 60219- 8499 Jun, Acute non-recurrent maxillary sinusitis J01.00 [place] [id number] [place] [address] 05535- 3171 Jun, [facility] [address] 07851- 5283 May, [place] [id number] [place] [address] 22903- 3939 May, [facility] [id number] [place] [address] 23892- 8665 May, GERD (gastroesophageal reflux disease) K21.9 [place] [address] 33680- 9815 May, Migraine without aura and without status migrainosus, not intractable G43.009 [place] [id number] [place] [address] 83499- 8419 May, [facility] [id number] [place] [address] 70131- 6627 May, [facility] [id number] [place] [address] 64099- 0931 May, Panlobular emphysema J43.1 and Acute non-recurrent maxillary sinusitis J01.00 [facility] [id number] [place] [address] 54842- 7938 May, Bipolar 1 disorder, depressed, moderate F31.32 ; Panic disorder with agoraphobia F40.01 and Akathisia G25.71 [facility] [id number] [place] [address] 46581- 7329 27 Apr, 2017 [facility] [id number] [place] [address] 04759- 4129 14 Apr, 2017 [place] [address] 09579- 0677 13 Apr, 2017 Acute non-recurrent maxillary sinusitis J01.00 [facility] [address] 91639- 3886 07 Apr, 2017 Panlobular emphysema J43.1 [place] [address] 30627- 2259 04 Apr, 2017 [facility] [place] [address] 55359 -1038 04 Apr, 2017 Exudative tonsillitis J03.90 and Sore throat J02.9 [place] [id number] [place] [address] 78502- 7867 17 Mar, 2017 [place] [address] 06719- 0043 15 Mar, 2017 Acute non-recurrent maxillary sinusitis J01.00 [place] [id number] [place] [address] 81428- 7355 13 Mar, 2017 [place] [id number] [place] [address] 31815- 7622 09 Mar, 2017 Panlobular emphysema J43.1 and Diabetes E11.9 [place] [id number] [place] [address] 18410- 1975 Mar, [facility] [place] [address] 19458 -6194 24 Feb, 2017 Wheezing R06.2 and Acute recurrent pansinusitis J01.41 [place] [address] 80134- 8743 Feb, [facility] [address] [address]- 2324 Feb, Acute non-recurrent maxillary sinusitis J01.00 [facility] [id number] [place] [address]- 2726 16 Feb, 2017 Chronic obstructive pulmonary disease, unspecified J44.9 [facility] [id number] [place] [address] 661483- 9449 Feb, Hypoxemia R09.02 and Chronic obstructive pulmonary disease, unspecified J44.9 [facility] [id number] [place] [address] 835417- 4790 28 Jan, 2017 Bipolar 1 disorder, depressed, moderate F31.32 ; Panic disorder with agoraphobia F40.01 ; Chronic post-traumatic stress disorder (PTSD ) F43.12 ; Diabetes E11.9 and Moderate persistent asthma without complication J45.40 [facility] [id number] [place] [address] 85656- 7203 22 Jan, 2017 [facility] [id number] [place] [address] 39364- 3462 19 Jan, 2017 Acute non-recurrent maxillary sinusitis J01.00 [facility] [id number] [place] [address] 13417- 5208 18 Jan, 2017 [facility] [id number] [place] [address] 05409- 9577 18 Jan, 2017 [facility] [id number] [place] [address] 54606- 2545 12 Jan, 2017 Moderate persistent asthma without complication J45.40 and Hypoxemia R09.02 [place] [id number] [place] [address] 37152- 2543 11 Jan, 2017 Moderate persistent asthma without complication J45.40 and Hypoxemia R09.02 [place] [id number] [place] [address] 56972- 7311 11 Jan, 2017 [place] [id number] [place] [address] 24255- 2621 Dec, Acute non-recurrent maxillary sinusitis J01.00 [facility] [id number] [place] [address] 53913- 7923 Dec, Chronic obstructive pulmonary disease, unspecified J44.9 [facility] [id number] [place] [address] 20617- 7692 Dec, [facility] [id number] [place] [address] 14422- 4875 Dec, Mild persistent asthma without complication J45.30 and Other chronic pain G89.29 [facility] [id number] [place] [address] 54642- 3796 Nov, [facility] [id number] [place] [address] 62336- 5064 Nov, Acute non-recurrent maxillary sinusitis J01.00 [facility] [id number] [place] [address] 81177- 1226 Nov, [facility] [id number] [place] [address] 77218- 9992 Nov, [facility] [id number] [place] [address] 26826- 6547 Oct, [facility] [address] [place] [address] 89937- 1750 Oct, Bipolar 1 disorder, depressed, partial remission F31.75 ; Panic disorder with agoraphobia F40.01 and Chronic post-traumatic stress disorder (PTSD) F43.12 [facility] [id number] [place] [address] 20398- 9135 Oct, Acute non-recurrent maxillary sinusitis J01.00 [facility] [id number] [place] [address] 38619- 0373 Oct, [facility] [id number] [place] [address] 02002- 5893 Oct, Diabetes E11.9 [facility] [address] [address]- 1108 September, Diabetes E11.9 [facility] [id number] [place] [address] 011498- 7997 September, Diabetes E11.9 and Sinus tachycardia R00.0 [facility] [id number] [place] [address] 92269- 3122 September, [facility] [id number] [place] [address] 00641- 1544 September, [facility] [id number] [place] [address] 39832- 2881 Aug, Diabetes E11.9 and Lumbago with sciatica, right side M54.41 [place] [id number] [place] [address] 40164- 5521 Aug, [facility] [id number] [place] [address] 37124- 7201 Jul, Bipolar 1 disorder, depressed, moderate F31.32 ; Panic disorder with agoraphobia F40.01 and Chronic post-traumatic stress disorder ( PTSD) F43.12 [facility] [address] [address]- 4160 Jul, Sore throat J02.9 [facility] [id number] [place] [address] 03855- 1221 Jul, [facility] [address] [place] [address] 52553- 5995 Jul, [facility] [id number] [place] [address] 99369- 8329 Jul, [facility] [id number] [address]- 1152 Jul, [facility] [id number] [place] [address] 85625- 9311 Jul, Sore throat J02.9 and Pharyngitis, unspecified etiology J02.9 [facility] [id number] [place] [address] 28537- 2542 Jun, [facility] [id number] [place] [address] 42783- 5637 Jun, Diabetes E11.9 [facility] [id number] [place] [address] 80861- 0962 Jun, [facility] [id number] [place] [address] 55871- 8420 Jun, [facility] [id number] [place] [address] 51658- 3592 Jun, [facility] [id number] [place] [address] 64427- 1931 Jun, [facility] [id number] [place] [address] 16486- 6771 Jun, [facility] [id number] [place] [address] 43649- 0658 Jun, [facility] [id number] [place] [address] 72262- 8907 Jun, [facility] [id number] [place] [address] 35052- 1970 Jun, [facility] [id number] [place] [address] 42828- 2693 May, Diabetes E11.9 ; Other chronic pain G89.29 ; Acute recurrent maxillary sinusitis J01.01 ; Bipolar I disorder with depression F31.9 and Anxiety disorder, unspecified F41.9 [facility] [id number] [place] [address] 82388- 9251 May, [facility] [id number] [place] [address] 31629- 3497 26 Eulalio, 2017 Diabetes E11.9 ; Bipolar I disorder with depression F31.9 ; Anxiety disorder, unspecified F41.9 ; Other chronic pain G89.29 and Acute recurrent maxillary sinusitis J01.01 [place] [address] [place] [address] [id number] [place] [address] 87920- 1260 May, [place] [address] [place] [id number] [place] [address] 75981- 3128 May, Attention deficit hyperactivity disorder (ADHD), predominantly inattentive type F90.0 [place] [address] [place] [id number] [place] [address] 89376- 7916 May, [place] [address] 446418- 9161 Apr, Attention deficit hyperactivity disorder (ADHD), predominantly inattentive type F90.0 and Non-seasonal allergic rhinitis due to other allergic trigger J30.89 [place] [address] 16739- 1100 Apr, Bipolar 1 disorder, depressed, moderate F31.32 ; Panic disorder with agoraphobia F40.01 and Chronic post-traumatic stress disorder ( PTSD) F43.12 [place] [address] [place] [id number] [place] [address] 30272- 7182 Apr, Dental examination Z01.20 [place] [address] [place] [id number] [place] [address] 50434- 2648 Mar, [place] [address] [place] [id number] [place] [address] 10911- 5926 Mar, [place] [address] [place] [id number] [place] [address] 62713- 7529 Mar, Bipolar I disorder with depression F31.9 and Anxiety disorder, unspecified F41.9 [place] [address] [place] [id number] [place] [address] 77468- 5905 Mar, Panic disorder with agoraphobia F40.01 ; Bipolar 1 disorder , depressed, moderate F31.32 and Chronic post-traumatic stress disorder (PTSD) F43.12 [place] [address] [place] [id number] [place] [address] 67146- 4377 Mar, [facility] [address] [place] [id number] [place] [address] 67890- 6837 Mar, Dental caries K02.9 [facility] [address] 02880- 2231 Feb, Lumbago with sciatica, left side M54.42 ; Lumbago with sciatica, right side M54.41 and Other chronic pain G89.29 [place] [address] 14520- 7144 17 Feb, 2016 [place] [address] 07031- 5335 Feb, [place] [address] 81201- 7321 Feb, Bipolar I disorder with depression F31.9 ; PTSD (post- traumatic stress disorder) F43.10 and Mood disorder F39 [place] [address] [place] [id number] [place] [address] 39278- 2822 Feb, [place] [address] 37331- 5040 Feb, Dental examination Z01.20 [place] [address] [place] [id number] [place] [address] 94186- 6485 07 Feb, 2016 [facility] [address] [place] [id number] [place] [address] 08811 -0266 Feb, Acute bronchitis, unspecified organism J20.9 [facility] [address] 63514- 9301 26 Jan, 2016 Mood disorder F39 ; Migraine without aura and without status migrainosus, not intractable G43.009 ; Irritable bowel syndrome, unspecified type K58.9 ; Diabetes E11.9 and Encounter for immunization Z23 [place] [address] [place] [address]- 2271 Jan, [facility] [address] [place] [id number] [place] [address] 98922- 4302 Jan, [facility] [id number] [place] [address] 47790- 0726 Jan, [facility] [id number] [place] [address] [phone]- 0702 Jan, [facility] [id number] [place] [address]57- [phone] Jan, [facility] [id number] [place] [address] 24044- 0738 Dec, Bipolar I disorder with depression F31.9 ; PTSD (post- traumatic stress disorder) F43.10 and Panic disorder with agoraphobia F40.01 [facility] [id number] [place] [address] 40861- 6711 Dec, Chronic obstructive pulmonary disease, unspecified COPD type J44.9 ; Tremor R25.1 and Anxiety F41.9 [facility] [id number] [place] [address] [phone]- 7505 Dec, [facility] [id number] [place] [address] 25010- [phone] Nov, Tremors of nervous system R25.1 and Cramping of feet R25.2 [facility] [id number] [address] Nov, [facility] [id number] [address] Nov, [facility] [id number] [place] [address] 27936- 0358 Oct, Chronic obstructive pulmonary disease, unspecified J44.9 [facility] [id number] [address] Oct, [facility] [id number] [place] [address] 95574- 6105 Oct, Tremor R25.1 [place] [id number] [place] [address] 43856- 8440 Oct, Bipolar I disorder with depression F31.9 ; Diabetes E11.9 ; PTSD (post-traumatic stress disorder) F43.10 and Panic disorder with agoraphobia F40.01 [place] [id number] [place] [address] [id number]- 6598 Oct, Mood disorder F39 [place] [id number] [place] [address] 06501- 3211 September[address] [place] [id number] [place] [address] 01003- 5576 September, Diabetes E11.9 ; Bipolar I disorder with depression F31.9 ; PTSD (post-traumatic stress disorder) F43.10 and Panic disorder with agoraphobia F40.01 [place] [id number] [place] [address] 94592- 0276 September, Mood disorder F39 ; Schizoaffective disorder, unspecified type F25.9 ; Arthritis M19.90 ; Tremor R25.1 ; Acute non-recurrent frontal sinusitis J01.10 and Blood in stool K92.1 [place] [id number] [place] [address] 30155- 6616 September, [place] [id number] [place] [address] 48651- 2848 September, Chronic obstructive pulmonary disease, unspecified J44.9 [place] [id number] [place] [address] 78144- 5957 September, Diabetes E11.9 [place] [id number] [place] [address] 20929- 5899 Aug, Other bipolar disorder F31.89 and Anxiety disorder, unspecified F41.9 [place] [id number] [place] [address] 95103- 3518 Aug, [facility] [id number] [place] [address] 55412- 6577 Aug, Diabetes E11.9 [facility] [id number] [place] [address] 88605- 3198 18 Aug, 2015 [facility] [id number] [place] [address] 06613- 8510 14 Aug, 2015 Diabetes E11.9 ; Fatigue R53.83 and Dizziness R42 [facility] [id number] [place] [address] 72724- 4902 13 Aug, 2015 Other bipolar disorder F31.89 [facility] [id number] [place] [address] 08977- 6076 07 Aug, 2015 Generalized anxiety disorder F41.1 [facility] [id number] [place] [address] 71181- 5438 Aug, Other bipolar disorder F31.89 and Anxiety disorder, unspecified F41.9 [facility] [id number] [place] [address] 99901- 0164 Aug, [facility] [id number] [place] [address] 20300- 4780 29 Jul, 2015 [facility] [id number] [place] [address] 06277- 1385 24 Jul, 2015 [facility] [id number] [place] [address] 81712- 1500 Jul, Bronchitis J40 [facility] [id number] [place] [address] 32773- 6670 Jul, Anxiety disorder F41.9 [facility] [id number] [place] [address] 81330- 6356 Jul, Other bipolar disorder F31.89 and Anxiety disorder, unspecified F41.9 [facility] [id number] [place] [address] 17199- 1181 Jul, Other bipolar disorder F31.89 and Fibromyalgia M79.7 [facility] [id number] [place] [address] 23871- 4873 Jul, [facility] [id number] [place] [address] 10345- 3554 Jul, [facility] [id number] [place] [address] 94432- 8992 Jul, [facility] [address] 28248- 9537 Jul, Other bipolar disorder F31.89 and Anxiety disorder, unspecified F41.9 [facility] [place] [address] 60624- 9824 Jun, GERD (gastroesophageal reflux disease) K21.9 [place] [address] 15981- 4084 Jun, [facility] [address] 00364- 7296 May, [facility] [address] 44318- 9430 May, Diabetes E11.9 ; Back pain M54.9 ; GERD (gastroesophageal reflux disease) K21.9 ; Hypertension I10 and Peripheral neuropathy G62.9 [place] [place] [id number] [place] [address] 72811- 0231 Mar, [facility] [id number] [place] [address] 88818- 2775 Mar, [facility] [address] 08910- 8915 Mar, Acute sinusitis J01.90 and Otitis media, left H66.92 [facility] [id number] [place] [address] 80960- 5748 Feb, [facility] [address] 69508- 4104 Feb, [facility] [id number] [place] [address] 96102- 0974 Feb, [facility] [id number] [place] [address] 28454- 9145 Feb, [facility] [id number] [place] [address] 03798- 0995 Jan, [facility] [id number] [place] [address] 85596- 3563 Jan, Diabetes 250.00 and Back pain 724.5 [facility] [id number] [place] [address] 55140- 5485 Jan, [facility] [id number] [place] [address] 41849- 2741 Dec, Diabetes 250.00 ; Benign essential hypertension 401.1 and Allergic rhinitis 477.9 [facility] [id number] [place] [address] 23426- 3653 Dec, [facility] [id number] [place] [address] 99214- 2760 Dec, [facility] [id number] [place] [address] 22015- 7389 Dec, Psychosis 298.9 [facility] [id number] [place] [address] 50491- 2166 Dec, Medication side effect 995.20 and Generalized anxiety disorder 300.02 [facility] [id number] [place] [address] 90439- 1671 Dec, Acquired cognitive dysfunction 294.9 [facility] [id number] [place] [address] 79020- 2667 Dec, [facility] [id number] [place] [address] 23724- 4798 Dec, Unspecified myalgia and myositis 729.1 and Generalized anxiety disorder 300.02 [facility] [address] [address]- 6554 Nov, [facility] [id number] [place] [address] 07524- 0594 Nov, [facility] [id number] [place] [address] 79301- 0238 Nov, [facility] [id number] [place] [address] 99369- 1843 Nov, Upper respiratory infection 465.9 and Chronic airway obstruction, not elsewhere classified 496 [facility] [id number] [place] [address] 64570- 5030 Nov, Hyponatremia 276.1 [facility] [id number] [place] [address] 12660- 0515 Oct, [facility] [id number] [place] [address] 09379- 6310 Oct, [facility] [id number] [place] [address] 79701- 9761 Oct, [facility] [id number] [place] [address] 05123- 3820 Oct, [facility] [id number] [place] [address] 28417- 9117 Oct, Hyponatremia 276.1 [facility] [id number] [place] [address] 83913- 6873 Oct, [facility] [address] [address]- 0144 Oct, [facility] [id number] [place] [address] 24717- 3463 Oct, Generalized anxiety disorder 300.02 [facility] [address] [address]- 0906 Oct, Generalized anxiety disorder 300.02 and Diabetes 250.00 [facility] [address] [address]- 7177 14 Aug, 2014 [facility] [place] [facility] [address] [id number] [place] [address]- 6868 13 Aug, 2014 [facility] [place] [facility] [address] [id number] [place] [address]- 2407 Jul, [facility] [place] [facility] [address] [id number] [place] [address]- 4559 Jul, [facility] [place] [facility] [address] [id number] [place] [address]- 4510 Jun, [facility] [place] [facility] [address] [id number] [place] [address]- 8043 Jun, [facility] [place] [facility] [address] [id number] [place] [address]- 9874 Jun, [facility] [place] [facility] [address] [id number] [place] [address]- 7457 Jun, [facility] [place] [facility] [address] [id number] [place] [address]- 7921 Jun, [facility] [place] [facility] [address] [facility] [id number] [place] [address]- 0943 May, [facility] [place] [facility] [address] [id number] [place] [address]- 8593 May, [facility] [place] [facility] [address] [id number] [place] [address]- 0060 Apr, [facility] [place] [facility] [address] [id number] [place] [address]- 5477 Apr, [facility] [place] [facility] [address] [id number] [place] [address]- 4400 Apr, [facility] [place] [facility] [address] [id number] [place] 3527 18 Apr, 2013 [facility] [place] [facility] [address] [id number] [place] [address]- 9376 Apr, [facility] [address] [id number] [place] [address]- 254 Apr, [facility] [place] [facility] [address] [id number] [place] [address]- 2546 Apr, [facility] [place] [facility] [address] [facility] [id number] [place] [address]- 2546 Apr, [facility] [place] [facility] [address] [id number] [place] [address]- 2546 Feb, [facility] [place] [facility] [address] [id number] [place] [address]- 2545 Feb, [facility] [place] [facility] [address] [id number] [place] [address]- 2546 Jan, [facility] [place] [facility] [address] [id number] [place] [address]- 2546 Jan, [facility] [place] [facility] [address] [id number] [address]- 5730 Dec, [facility] [place] [facility] [address] [id number] [place] [address]- 5533 Dec, [facility] [place] [facility] [address] [id number] [place] [address] 2546 Dec, [facility] [place] [facility] [address] [id number] [address]- 2546 Nov, [facility] [place] [facility] [address] [id number] [address]- 2548 Nov, [facility] [place] [facility] [address] [id number] [place] [address]- 2546 Nov, [facility] [place] [facility] [address] [id number], [place] [address]- 2546 Oct, [facility] [place] [facility] [address] [id number] [place] [address]- 2546 Oct, [facility] [place] [facility] [address] [id number] [place] [address]- 4612 Oct, [facility] [address] [id number] [place] [address]- 0004 September, [facility] [place] [facility] [address] [id number] [place] [address]- 3706 September, [facility] [address] [id number] [place] [address]- 0246 September, [facility] [address] [id number] [place] [address]- 0140 Aug, [facility] [address] [id number] [place] [address]- 3237 Aug, [facility] [address] [id number] [place] [address]- 9170 Aug, [facility] [address] [id number] [place] [address]- 5992 16 Aug, 2011 [facility] [address] [id number] [place] [address]- 9594 Jul, [facility] [address] [id number] [place] [address]- 2025 Jun, [facility] [address] [id number] [place] [address]- 8412 14 Jun, 2011 [facility] [place] [facility] [address] [id number] [place] [address]- 0216 13 Jun, 2011 [facility] [address] [id number] [place] [address]- 2696 07 Jun, 2011 [facility] [place] [facility] [address] [id number] [place] [address]- 5216 03 Jun, 2011 [facility] [place] [facility] [address] [id number] [place] [address]- 0806 13 May, 2011 [facility] [place] [facility] [address] [id number] [place] [address]- 5487 May, [facility] [place] [facility] [address] [id number] [place] [address]- 4844 May, [facility] [place] [facility] [address] [id number] [place] [address]- 8575 May, [facility] [place] [facility] [address] [id number] [place] [address]- 9924 Apr, [facility] [place] [facility] [address] [id number] [place] [address]- 2998 Apr, [facility] [place] [facility] [address] [id number] [place] [address]- 1610 Apr, [facility] [place] [facility] [address] [id number] [place] [address]- 1174 Mar, [facility] [place] [facility] [address] [id number] [place] [address]- 2221 Mar, [facility] [place] [facility] [address] [id number] [place] [address]- 8772 Mar, [facility] [place] [facility] [address] [id number] [place] [address]- 4167 Feb, [facility] [place] [facility] [address] [id number] [place] [address]- 0880 Feb, [facility] [place] [facility] [address] [id number] [place] [address]- 0551 Feb, [facility] [place] [facility] [address] [id number] [address]- 4481 Nov, [facility] [place] [facility] [address] [id number] [place] [address]- 4795 September, [facility] [place] [facility] [address] [id number] [place] [address]- 3385 12 Aug, 2010 [facility] [place] [facility] [address] [id number] [place] [address]- 6827 14 Jul, 2010 [facility] [place] [facility] [address] [facility] [id number] [place] [address]- 7604 11 May, 2010 [facility] [address] [facility] [id number], [place] [address]- 9326 Apr, [facility] [address] [facility] [id number], [place] [address]- 9540 Apr, [facility] [address] [facility] [id number], [place] [address]- 0921 Apr, [facility] [id number] [address]- 3767 Apr, [facility] [address] [facility] [id number], [place] [address]- 8864 Apr, IMMUNIZATIONS No Known Immunizations SOCIAL HISTORY Never Assessed REASON FOR VISIT Controlled Med Refill 05/20 PLAN OF CARE VITAL SIGNS MEDICATIONS Medication Instructions Dosage Frequency Start Date End Date Duration Status Clonidine HCl 0.1 MG TAKE ONE TABLET BY MOUTH THREE TIMES DAILY Active Rowena 7.5-325 MG Orally 3 times a day 1 tablet as needed 8h 10 May, 2017 28 days Active Gabapentin 800 MG Orally Three times a day 1 tablet 8h 18 Jul, 2015 Active Rtwwoznjfd-OZIZ-Mqfdygbp 50-325-40 MG Orally every 6 hours as needed for headaches 1 capsule as needed Jun, 30 days Active Baclofen 20 MG Orally Three times a day 1 tablet with food or milk 8h 30 Active RESULTS No Results PROCEDURES No [...]
--- OUTSIDE RECORDS SUMMARY | 2017-11-18 07:15 | XMS REPORT ---
Author Author JOHANN YVON Organization [facility] Address [address] [place] [address] Care Team Providers Care Electronic Induction Hardener Name Role Phone KYE WILLSA Unavailable PROBLEMS Type Condition ICD9-CM Code IKA63-IH Code Onset Dates Condition Status SNOMED Code Problem GERD (gastroesophageal reflux disease) K21.9 Active 265791511 Problem Back pain M54.9 Active 389350315 Problem Diabetes E11.9 Active 06625235 Problem Hypertension I10 Active 89272530 Problem Anxiety disorder, unspecified F41.9 Active 130526170 Problem Other bipolar disorder F31.89 Active 83735424 Problem Fibromyalgia M79.7 Active 38598772 Problem Moderate persistent asthma without complication J45.40 Active 433699810 Problem Panic disorder with agoraphobia F40.01 Active 94756753 Problem Panlobular emphysema J43.1 Active 6937527 Problem Chronic obstructive pulmonary disease, unspecified J44.9 Active 15842522 Problem Akathisia G25.71 Active 921718555 Problem Fibrocystic disease of left breast N60.12 Active 95287351 Problem Migraine without aura and without status migrainosus, not intractable G43.009 Active 642017921 Problem Essential tremor G25.0 Active 093274470 Problem Schizoaffective disorder, bipolar type F25.0 Active 44524417 Problem Other chronic pain G89.29 Active 61122445 Problem Lumbago with sciatica, right side M54.41 Active 861097290 Problem Lumbago with sciatica, left side M54.42 Active 686115087 Problem Arthritis M19.90 Active 0808048 Problem Fibrocystic disease of right breast N60.11 Active 09190150 Problem Irritable bowel syndrome with both constipation and diarrhea K58.2 Active 38741145 Problem Irritable bowel syndrome with constipation K58.1 Active 076243686 Problem Bipolar affective disorder, remission status unspecified F31.9 Active 90265869 Problem Attention deficit hyperactivity disorder (ADHD), predominantly inattentive type F90.0 Active 80862915 Problem Bipolar 1 disorder, depressed, moderate F31.32 Active 06272561 Problem Chronic post-traumatic stress disorder (PTSD) F43.12 Active 849058752 Problem Bipolar 1 disorder, depressed, partial remission F31.75 Active 57164305 Problem Mild persistent asthma without complication J45.30 Active 508327305 Problem Bipolar I disorder with depression F31.9 Active 21163366 Problem Acute non-recurrent maxillary sinusitis J01.00 Active 94219469 ALLERGIES No Information ENCOUNTERS Encounter Location Date Diagnosis [facility] [id number] [place] [address] 29579- 7796 Nov, [facility] [address] 93795- 0447 Oct, [facility] [id number] [place] [address] 33853- 7945 Oct, [facility] [id number] [place] [address] 68324- 4671 Oct, [facility] [id number] [place] [address] 76741- 6700 Oct, [facility] [id number] [place] [address] 80508- 5610 Oct, [facility] [id number] [place] [address] 74811- 4338 Oct, [facility] [id number] [place] [address] 20071- 0781 Oct, [facility] [id number] [place] [address] 73939- 8623 Oct, [facility] [id number] [place] [address] 67711- 7395 Oct, [facility] [id number] [place] [address] 46693- 1614 Oct, [facility] [id number] [place] [address] 90008- 3555 September, Frequent headaches R51 [facility] [id number] [place] [address] 49622- 5472 September, Bilateral otitis media with effusion H65.93 ; Dizziness R42 and Essential tremor G25.0 [facility] [id number] [place] [address] 41024- 0517 September, Chronic obstructive pulmonary disease, unspecified COPD type J44.9 [facility] [address] 07036- 8330 September, Chronic obstructive pulmonary disease, unspecified COPD type J44.9 [facility] [address] 26721- 6164 September, Migraine without aura and without status migrainosus, not intractable G43.009 [facility] [id number] [place] [address] 77174- 0236 September, [facility] [id number] [place] [address] 92517- 7600 September, [facility] [id number] [place] [address] 98911- 8448 September, [facility] [id number] [place] [address] 16118- 1369 September, Frequent headaches R51 [facility] [id number] [place] [address] 67731- 8563 Aug, [facility] [id number] [place] [address] 00498- 7845 Aug, Breast mass, right N63.10 [facility] [id number] [place] [address] 85425- 2763 Aug, Breast lump N63.0 [facility] [id number] [place] [address] 93262- 9590 Aug, [facility] [id number] [place] [address] 06328- 1921 Aug, Bipolar affective disorder, remission status unspecified F31.9 and Diabetes E11.9 [facility] [id number] [place] [address] 16141- 2307 Aug, Diabetes E11.9 ; Schizoaffective disorder, bipolar type F25.0 ; Pharyngitis due to other organism J02.8 ; Panlobular emphysema J43.1 and Irritable bowel syndrome with both constipation and diarrhea K58.2 [facility] [id number] [place] [address] 46402- 2388 Aug, Abnormal mammogram R92.8 [facility] [address] 67168- 2116 Aug, [facility] [address] 04993- 9666 Aug, Bipolar 1 disorder, depressed, moderate F31.32 ; Panic disorder with agoraphobia F40.01 and Chronic post-traumatic stress disorder ( PTSD) F43.12 [facility] [id number] [place] [address] 40494- 9832 Aug, [facility] [id number] [place] [address] 36608- 5418 Aug, [facility] [id number] [place] [address] 88750- 1442 Aug, [facility] [id number] [place] [address] 22693- 9379 Jul, [facility] [id number] [place] [address] 66957- 3864 Jul, Mild persistent asthma without complication J45.30 [facility] [id number] [place] [address] 27037- 3154 Jul, Mild persistent asthma without complication J45.30 [facility] [id number] [place] [address] 12019- 0652 Jul, Bipolar affective disorder, remission status unspecified F31.9 ; Diabetes E11.9 and Irritable bowel syndrome with constipation K58.1 [facility] [address] [address]- 6304 Jul, [facility] [id number] [place] [address] 17532- 8697 Jul, [facility] [id number] [place] [address] 98490- 6335 Jul, Frequent headaches R51 [facility] [id number] [place] [address] 55088- 0936 Jul, [facility] [id number] [place] [address] 92005- 9867 Jul, [facility] [id number] [place] [address] 50619- 7902 Jul, [facility] [id number] [place] [address] 25827- 4829 Jul, Frequent headaches R51 ; Fibrocystic disease of left breast N60.12 ; Fibrocystic disease of right breast N60.11 and Diabetes E11.9 [facility] [id number] [place] [address] 45125- 9038 Jul, [facility] [id number] [address]- 3711 Jul, [facility] [id number] [place] [address] 65494- 1033 Jun, Exudative tonsillitis J03.90 [facility] [address] [address]- 2826 Jun, [facility] [id number] [place] [address] 94119- 8270 Jun, [facility] [address] [address]- 0550 Jun, Mild persistent asthma without complication J45.30 ; Chronic obstructive pulmonary disease, unspecified COPD type J44.9 and Exudative tonsillitis J03.90 [facility] [id number] [place] [address] 84560- 5791 13 Jun, 2017 Encounter for immunization Z23 [facility] [address] 32937- 2533 Jun, [facility] [address] 03741- 1629 Jun, [facility] [address] 86582- 4116 Jun, [facility] [address] 40137 -8799 06 Jun, 2017 Tonsillitis J03.90 [facility] [address] 88908- 9061 Jun, [facility] [address] 04715- 8826 Jun, Acute non-recurrent maxillary sinusitis J01.00 [facility] [address] 10224- 5634 Jun, [facility] [id number] [place] [address] 06725- 9345 May, [facility] [address] 68184- 5433 May, [facility] [address] 07592- 1904 May, GERD (gastroesophageal reflux disease) K21.9 [facility] [address] 73873- 5545 May, Migraine without aura and without status migrainosus, not intractable G43.009 [facility] [id number] [place] [address] 41841- 5905 May, [facility] [id number] [place] [address] 17747- 8887 May, [facility] [address] 21301- 6706 May, Panlobular emphysema J43.1 and Acute non-recurrent maxillary sinusitis J01.00 [facility] [id number] [place] [address] 96846- 8195 May, Bipolar 1 disorder, depressed, moderate F31.32 ; Panic disorder with agoraphobia F40.01 and Akathisia G25.71 [facility] [id number] [place] [address] 86164- 3500 Apr, [facility] [address] 49809- 6420 Apr, [facility] [address] 21866- 4772 Apr, Acute non-recurrent maxillary sinusitis J01.00 [facility] [id number] [place] [address] 51413- 2369 Apr, Panlobular emphysema J43.1 [facility] [id number] [place] [address] 40321- 9643 Apr, [facility] [id number] [place] [address] 38038 -7152 Apr, Exudative tonsillitis J03.90 and Sore throat J02.9 [facility] [id number] [place] [address] 56511- 2391 Mar, [facility] [address] 07439- 5434 15 Mar, 2017 Acute non-recurrent maxillary sinusitis J01.00 [facility] [id number] [place] [address] 49930- 0917 Mar, [facility] [address] 96146- 6107 Mar, Panlobular emphysema J43.1 and Diabetes E11.9 [facility] [id number] [place] [address] 88645- 8347 Mar, [facility] [id number] [place] [address] 36753 -7243 Feb, Wheezing R06.2 and Acute recurrent pansinusitis J01.41 [facility] [id number] [place] [address] 94407- 7685 Feb, [facility] [id number] [place] [address] 88113- 9190 Feb, Acute non-recurrent maxillary sinusitis J01.00 [facility] [id number] [place] [address] 60362- 2545 Feb, Chronic obstructive pulmonary disease, unspecified J44.9 [facility] [id number] [place] [address] 71840- 2411 Feb, Hypoxemia R09.02 and Chronic obstructive pulmonary disease, unspecified J44.9 [facility] [id number] [place] [address] 01720- 5228 28 Jan, 2017 Bipolar 1 disorder, depressed, moderate F31.32 ; Panic disorder with agoraphobia F40.01 ; Chronic post-traumatic stress disorder (PTSD ) F43.12 ; Diabetes E11.9 and Moderate persistent asthma without complication J45.40 [facility] [id number] [place] [address] 78344- 8912 Jan, [facility] [id number] [place] [address] 43162- 6692 Jan, Acute non-recurrent maxillary sinusitis J01.00 [facility] [id number] [place] [address] 95571- 6913 18 Jan, 2017 [facility] [id number] [place] [address] 83882- 8798 Jan, [facility] [id number] [place] [address] 61845 2546 Jan, Moderate persistent asthma without complication J45.40 and Hypoxemia R09.02 [facility] [id number] [place] [address] 38828 2546 Jan, Moderate persistent asthma without complication J45.40 and Hypoxemia R09.02 [facility] [id number] [place] [address] 47347 2546 Jan, [facility] [id number] [place] [address] 12347 2547 Dec, Acute non-recurrent maxillary sinusitis J01.00 [facility] [address] 09472 2546 Dec, Chronic obstructive pulmonary disease, unspecified J44.9 [facility] [address] 88621- 3866 Dec, [facility] [address] 68910 2541 Dec, Mild persistent asthma without complication J45.30 and Other chronic pain G89.29 [facility] [id number] [place] [address] 63276- 7627 Nov, [facility] [id number] [place] [address] 03357- 6266 Nov, Acute non-recurrent maxillary sinusitis J01.00 [facility] [id number] [place] [address] 42447 2546 Nov, [facility] [id number] [place] [address] 84741- 6391 Nov, [facility] [id number] [place] [address] 38231 2544 Oct, [facility] [id number] [place] [address] 28194- 7979 Oct, Bipolar 1 disorder, depressed, partial remission F31.75 ; Panic disorder with agoraphobia F40.01 and Chronic post-traumatic stress disorder (PTSD) F43.12 [facility] [id number] [place] [address] 02726- 0324 Oct, Acute non-recurrent maxillary sinusitis J01.00 [facility] [id number] [place] [address] 51224- 9477 Oct, [facility] [id number] [place] [address] 40168- 8486 Oct, Diabetes E11.[address] 594471- 6272 September, Diabetes E11.9 [facility] [id number] [place] [address] 67959- 0372 September, Diabetes E11.9 and Sinus tachycardia R00.0 [address] [id number] [place] [address] 43671- 3031 September, [facility] [id number] [place] [address] 44885- 3309 September, [facility] [id number] [place] [address] 98593- 4053 Aug, Diabetes E11.9 and Lumbago with sciatica, right side M54.41 [address] [id number] [place] [address] 48967- 9362 Aug, [facility] [id number] [place] [address] 91756- 3358 Jul, Bipolar 1 disorder, depressed, moderate F31.32 ; Panic disorder with agoraphobia F40.01 and Chronic post-traumatic stress disorder ( PTSD) F43.12 [facility] [id number] [place] [address] 40645- 7465 Jul, Sore throat J02.9 [facility] [id number] [place] [address] 20342- 2888 Jul, [facility] [address] [address]- 2478 Jul, [facility] [address] [address]- 7289 Jul, [facility] [address], [place] [address]- 9970 Jul, [facility] [address] [address]- 9569 Jul, Sore throat J02.9 and Pharyngitis, unspecified etiology J02.9 [facility] [id number] [place] [address] 31873- 6470 Jun, [facility] [address] [address]- 2208 Jun, Diabetes E11.9 [facility] [address] [address]- 2161 Jun, [facility] [address] [address]- 8993 Jun, [facility] [address], [place] [address]- 8788 Jun, [facility] [address], [place] [address]- 7958 Jun, [facility] [address] [address]- 4982 Jun, [facility] [id number] [address]- 4329 Jun, [facility] [address] [address]- 2640 Jun, [facility] [address] [address]- 7103 Jun, [facility] [id number] [place] [address] 19756- 5946 May, Diabetes E11.9 ; Other chronic pain G89.29 ; Acute recurrent maxillary sinusitis J01.01 ; Bipolar I disorder with depression F31.9 and Anxiety disorder, unspecified F41.9 [facility] [id number] [place] [address] 05770- 6995 May, [facility] [address] 55621- 3897 May, Diabetes E11.9 ; Bipolar I disorder with depression F31.9 ; Anxiety disorder, unspecified F41.9 ; Other chronic pain G89.29 and Acute recurrent maxillary sinusitis J01.01 [facility] [id number] [place] [address] 23347- 4653 May, [facility] [id number] [place] [address] 08524- 4644 May, Attention deficit hyperactivity disorder (ADHD), predominantly inattentive type F90.0 [facility] [id number] [place] [address] 76427- 7251 May, [facility] [address] 15593- 7306 Apr, Attention deficit hyperactivity disorder (ADHD), predominantly inattentive type F90.0 and Non-seasonal allergic rhinitis due to other allergic trigger J30.89 [facility] [id number] [place] [address] 08151- 3443 Apr, Bipolar 1 disorder, depressed, moderate F31.32 ; Panic disorder with agoraphobia F40.01 and Chronic post-traumatic stress disorder ( PTSD) F43.12 [place] [id number] [place] [address] 98431- 4560 Apr, Dental examination Z01.20 [facility] [id number] [place] [address] 06400- 9392 Mar, [facility] [address] [place] [address]- 3675 Mar, [facility] [id number] [place] [address] 36399- 0454 Mar, Bipolar I disorder with depression F31.9 and Anxiety disorder, unspecified F41.9 [facility] [id number] [place] [address] 05598- 1333 08 Mar, 2016 Panic disorder with agoraphobia F40.01 ; Bipolar 1 disorder , depressed, moderate F31.32 and Chronic post-traumatic stress disorder (PTSD) F43.12 [facility] [id number] [place] [address] 64006- 7737 Mar, [facility] [address] 86155- 0616 Mar, Dental caries K02.9 [facility] [id number] [place] [address] 01511- 8706 Feb, Lumbago with sciatica, left side M54.42 ; Lumbago with sciatica, right side M54.41 and Other chronic pain G89.29 [facility] [id number] [place] [address] 12201- 5103 Feb, [facility] [id number] [place] [address] 93516- 2630 Feb, [facility] [id number] [place] [address] 16494- 9423 13 Feb, 2016 Bipolar I disorder with depression F31.9 ; PTSD (post- traumatic stress disorder) F43.10 and Mood disorder F39 [facility] [id number] [place] [address] 46775- 7737 Feb, [facility] [id number] [place] [address] 07215- 5953 11 Feb, 2016 Dental examination Z01.20 [facility] [id number] [place] [address] 76127- 2835 07 Feb, 2016 [facility] [id number] [place] [address] 87197 -7063 Feb, Acute bronchitis, unspecified organism J20.9 [facility] [id number] [place] [address] 05214- 9596 Jan, Mood disorder F39 ; Migraine without aura and without status migrainosus, not intractable G43.009 ; Irritable bowel syndrome, unspecified type K58.9 ; Diabetes E11.9 and Encounter for immunization Z23 [facility] [id number] [place] [address] 97142- 6502 Jan, [facility] [address] 68254- 3481 Jan, [facility] [address] 70074- 2740 Jan, [facility] [address] 83750- 5253 Jan, [facility] [id number] [place] [address] 16958- 4706 Jan, [facility] [address] 74245- 5077 Dec, Bipolar I disorder with depression F31.9 ; PTSD (post- traumatic stress disorder) F43.10 and Panic disorder with agoraphobia F40.01 [facility] [id number] [place] [address] 60833- 9829 Dec, Chronic obstructive pulmonary disease, unspecified COPD type J44.9 ; Tremor R25.1 and Anxiety F41.9 [facility] [id number] [place] [phone]- 1117 Dec, [place] [address] [phone] Nov, Tremors of nervous system R25.1 and Cramping of feet R25.2 [place] [address] [place] [address] Nov, [facility] [id number] [place] [address] 216[address]- [address]88 Nov, [facility] [id number] [place] [address] 72739- 2132 Oct, Chronic obstructive pulmonary disease, unspecified J44.9 [facility] [id number] [place] [address] [phone] Oct, [facility] [id number] [place] [address] [phone]- 1722 Oct, Tremor R25.1 [place] [id number] [place] [address] [phone]- 5194 Oct, Bipolar I disorder with depression F31.9 ; Diabetes E11.9 ; PTSD (post-traumatic stress disorder) F43.10 and Panic disorder with agoraphobia F40.01 [place] [id number] [place] [address]- 68[address] Oct, Mood disorder F39 [place] [id number] [place] [address] 44814- 3586 September, [place] [id number] [place] [phone]- [phone] September, Diabetes E11.9 ; Bipolar I disorder with depression F31.9 ; PTSD (post-traumatic stress disorder) F43.10 and Panic disorder with agoraphobia F40.01 [place] [address] [id number] [place] [address] 58946- 4497 September, Mood disorder F39 ; Schizoaffective disorder, unspecified type F25.9 ; Arthritis M19.90 ; Tremor R25.1 ; Acute non-recurrent frontal sinusitis J01.10 and Blood in stool K92.1 [facility] [id number] [place] [address] 61001- 2056 September, [facility] [id number] [place] [address] 74600- 4959 September, Chronic obstructive pulmonary disease, unspecified J44.9 [facility] [id number] [place] [address] 04326- 2576 September, Diabetes E11.9 [facility] [id number] [place] [address] 37488- 3021 Aug, Other bipolar disorder F31.89 and Anxiety disorder, unspecified F41.9 [facility] [id number] [place] [address] 19195- 0063 Aug, [facility] [id number] [place] [address] 39584- 8778 Aug, Diabetes E11.9 [facility] [id number] [place] [address] 26991- 2757 Aug, [facility] [id number] [place] [address] 64053- 7465 14 Aug, 2015 Diabetes E11.9 ; Fatigue R53.83 and Dizziness R42 [facility] [id number] [place] [address] 02434- 8755 Aug, Other bipolar disorder F31.89 [facility] [id number] [place] [address] 45682- 3998 Aug, Generalized anxiety disorder F41.1 [facility] [id number] [place] [address] 34851- 3215 Aug, Other bipolar disorder F31.89 and Anxiety disorder, unspecified F41.9 [facility] [id number] [place] [address] 74551- 0572 Aug, [facility] [id number] [place] [address] 77161- 3607 Jul, [facility] [id number] [place] [address] 04418- 1014 Jul, [facility] [id number] [place] [address] 01248- 4520 Jul, Bronchitis J40 [facility] [id number] [place] [address] 81267- 6213 Jul, Anxiety disorder F41.9 [facility] [id number] [place] [address] 03687- 4266 Jul, Other bipolar disorder F31.89 and Anxiety disorder, unspecified F41.9 [facility] [id number] [place] [address] 78077- 2026 Jul, Other bipolar disorder F31.89 and Fibromyalgia M79.7 [facility] [address] 77872- 3787 Jul, [facility] [id number] [place] [address] 42120- 9749 Jul, [facility] [address] 65115- 4090 Jul, [facility] [id number] [place] [address] 04820- 2639 Jul, Other bipolar disorder F31.89 and Anxiety disorder, unspecified F41.9 [facility] [id number] [place] [address] 87962- 3017 Jun, GERD (gastroesophageal reflux disease) K21.9 [facility] [id number] [place] [address] 31282- 1937 Jun, [facility] [id number] [place] [address] 10570- 4939 May, [facility] [id number] [place] [address] 74426- 6794 May, Diabetes E11.9 ; Back pain M54.9 ; GERD (gastroesophageal reflux disease) K21.9 ; Hypertension I10 and Peripheral neuropathy G62.9 [facility] [id number] [place] [address] 72738- 2019 Mar, [facility] [id number] [place] [address] 44202- 8853 Mar, [facility] [id number] [place] [address] 41991- 9438 Mar, Acute sinusitis J01.90 and Otitis media, left H66.92 [facility] [id number] [place] [address] 64548- 8332 Feb, [facility] [id number] [place] [address] 78540- 7514 Feb, [facility] [id number] [place] [address] 80916- 0628 Feb, [facility] [id number] [place] [address] 70089- 1149 Feb, [facility] [id number] [place] [address] 93229- 3004 Jan, [facility] [id number] [place] [address] 85593- 6343 Jan, Diabetes 250.00 and Back pain 724.5 [facility] [id number] [place] [address] 68565- 1309 Jan, [facility] [id number] [place] [address] 72484- 4808 Dec, Diabetes 250.00 ; Benign essential hypertension 401.1 and Allergic rhinitis 477.9 [facility] [id number] [place] [address] 48901- 6520 Dec, [facility] [id number] [place] [address] 97926- 6447 Dec, [facility] [id number] [place] [address] 72520- 7298 Dec, Psychosis 298.9 [facility] [id number] [place] [address] 74763- 8781 10 Aug, 2015 Medication side effect 995.20 and Generalized anxiety disorder 300.02 [facility] [id number] [place] [address] 72515- 2710 Dec, Acquired cognitive dysfunction 294.9 [facility] [id number] [place] [address] 21942- 8000 Dec, [facility] [id number] [place] [address] 54994- 8577 Dec, Unspecified myalgia and myositis 729.1 and Generalized anxiety disorder 300.02 [facility] [id number] [place] [address] 14676- 4914 Nov, [facility] [id number] [place] [address] 14564- 9608 Nov, [facility] [id number] [place] [address] 09205- 7745 Nov, [facility] [id number] [place] [address] 79584- 7628 Nov, Upper respiratory infection 465.9 and Chronic airway obstruction, not elsewhere classified 496 [facility] [id number] [place] [address] 76460- 0995 Nov, Hyponatremia 276.1 [facility] [id number] [place] [address] 17174- 7193 Oct, [facility] [id number] [place] [address] 06580- 0072 Oct, [facility] [id number] [place] [address] 47853- 2379 Oct, [facility] [id number] [place] [address] 91643- 9501 Oct, [facility] [id number] [place] [address] 09068- 0827 Oct, Hyponatremia 276.1 [facility] [id number] [place] [address] 93933- 1626 Oct, [facility] [address] [address]- 4904 Oct, [facility] [address] [address]- 0121 Oct, Generalized anxiety disorder 300.02 [facility] [address] [address]- 8309 Oct, Generalized anxiety disorder 300.02 and Diabetes 250.00 [facility] [address] [address]- 0843 Aug, [facility] [id number] [place] [address] 94997- 4409 Aug, [facility] [address] [address]- 7526 Jul, [facility] [id number] [place] [address] 61622- 1717 Jul, [facility] [address] [address]- 1314 Jun, [facility] [id number] [place] [address] 30090- 8372 Jun, [facility] [address] [address]- 3152 Jun, [facility] [address] [address]- 3101 Jun, [facility] [address] [address]- 1718 Jun, [facility] [address] [address]- 9404 May, [facility] [address] [address]- 0594 May, [facility] [id number] [place] [address] 54523- 5106 Apr, [facility] [place] [facility] [address] [id number] [place] 1632 Apr, [facility] [place] [facility] [address] [id number] [place] [address]- 9347 Apr, [facility] [place] [facility] [address] [id number] [place] [address]- 4418 Apr, [facility] [place] [facility] [address] [id number] [place] [address]- 4660 Apr, [facility] [place] [facility] [address] [id number] [place] 4900 Apr, [facility] [place] [facility] [address] [id number] [place] [address]- 0913 Apr, [facility] [place] [facility] [address] [id number] [place] [address]- 1353 Apr, [facility] [place] [facility] [address] [id number] [place] [address]- 5810 Feb, [facility] [place] [facility] [address] [id number] [place] [address]- 3376 Feb, [facility] [place] [facility] [address] [id number] [place] [address]- 1894 Jan, [facility] [place] [facility] [address] [id number] [address]- 4961 Jan, [facility] [place] [facility] [address] [id number], [place] [address]- 9712 Dec, [facility] [place] [facility] [address] [id number] [place] [address]- 7874 Dec, [facility] [place] [facility] [address] [id number] [place] [address]- 0128 Dec, [facility] [place] [facility] [address] [id number] [place] [address]- 3974 Nov, [facility] [place] [facility] [address] [id number] [place] [address] 2546 Nov, [facility] [address] [id number] [place] [address]- 6603 Nov, [facility] [address] [id number] [place] [address]- 9385 Oct, [facility] [address] [id number] [place] [address]- 0896 Oct, [facility] [address] [id number] [place] [address]- 5697 Oct, [facility] [address] [id number] [place] [address]- 8755 September, [facility] [address] [id number] [place] [address]- 9506 September, [facility] [address] [id number] [place] [address]- 4463 September, [facility] [address] [id number] [place] [address]- 9121 Aug, [facility] [address] [id number] [place] [address]- 6227 Aug, [facility] [address] [id number] [place] [address]- 5659 Aug, [facility] [address] [id number] [place] [address]- 2607 16 Aug, 2011 [facility] [address] [id number] [place] [address]- 6540 Jul, [facility] [place] [facility] [address] [id number] [place] [address]- 2910 21 Jun, 2011 [facility] [place] [facility] [address] [id number] [place] [address]- 3556 14 Jun, 2011 [facility] [place] [facility] [address] [id number] [place] [address]- 5158 13 Jun, 2011 [facility] [place] [facility] [address] [id number] [place] [address]- 8723 Jun, [facility] [place] [facility] [address] [id number] [place] [address]- 6136 Jun, [facility] [place] [facility] [address] [facility] [id number] [place] [address]- 6483 May, [facility] [place] [facility] [address] [id number] [place] [address]- 8925 May, [facility] [place] [facility] [address] [id number] [place] [address]- 9403 May, [facility] [place] [facility] [address] [id number] [place] [address]- 6521 May, [facility] [place] [facility] [address] [id number] [place] [address]- 1436 Apr, [facility] [place] [facility] [address] [id number], [place] [address]- 8494 Apr, [facility] [place] [facility] [address] [id number], [place] [address]- 7580 Apr, [facility] [place] [facility] [address] [id number], [place] [address]- 0087 Mar, [facility] [place] [facility] [address] [id number], [place] [address]- 0921 Mar, [facility] [place] [facility] [address] [id number], [place] [address]- 2351 Mar, [facility] [place] [facility] [address] [id number], [place] [address]- 6061 13 Feb, 2011 [facility] [place] [facility] [address] [id number], [place] [address]- 1209 13 Feb, 2011 [facility] [place] [facility] [address] [facility] [id number], [place] [address]- 6594 13 Feb, 2011 [facility] [place] [facility] [id number] [address]- 3166 11 Nov, 2010 [facility] [id number] [address]- 7426 September, [facility] [address] [address]- 9966 Aug, [facility] [id number] [address]- 7232 Jul, [facility] [address] [address]- 3165 May, [facility] [address] [address]- 6245 Apr, [facility] [address], [place] [address]- 2816 Apr, [facility] [address] [address]- 0159 Apr, [facility] [id number] [address]- 2707 Apr, [facility] [address] [address]- 7396 Apr, IMMUNIZATIONS No Known Immunizations SOCIAL HISTORY Never Assessed [facility] PLAN OF CARE VITAL SIGNS MEDICATIONS [...]
--- OUTSIDE RECORDS SUMMARY | 2017-11-18 07:16 | XMS REPORT ---
Author Author WHIT GANDHI [facility] Address [address] [place] [address] Care Team Providers Care [employer] Name Role Phone WHIT GANDHI Unavailable PROBLEMS Type Condition ICD9-CM Code HOC62-KP Code Onset Dates Condition Status SNOMED Code Problem Back pain M54.9 Active 216742907 Problem GERD (gastroesophageal reflux disease) K21.9 Active 622084000 Problem Diabetes E11.9 Active 50123844 Problem Hypertension I10 Active 97646290 Problem Anxiety disorder, unspecified F41.9 Active 553722992 Problem Other bipolar disorder F31.89 Active 96594662 Problem Mild persistent asthma without complication J45.30 Active 135391131 Problem Fibromyalgia M79.7 Active 08138746 Problem Moderate persistent asthma without complication J45.40 Active 236097921 Problem Panic disorder with agoraphobia F40.01 Active 26813285 Problem Panlobular emphysema J43.1 Active 0017497 Problem Migraine without aura and without status migrainosus, not intractable G43.009 Active 828894600 Problem Akathisia G25.71 Active 078497507 Problem Schizoaffective disorder, bipolar type F25.0 Active 14247470 Problem Irritable bowel syndrome with both constipation and diarrhea K58.2 Active 19206929 Problem Lumbago with sciatica, left side M54.42 Active 610986993 Problem Other chronic pain G89.29 Active 55810092 Problem Chronic obstructive pulmonary disease, unspecified J44.9 Active 22280426 Problem Fibrocystic disease of left breast N60.12 Active 47772325 Problem Fibrocystic disease of right breast N60.11 Active 10066132 Problem Irritable bowel syndrome with constipation K58.1 Active 539401229 Problem Arthritis M19.90 Active 1891111 Problem Chronic post-traumatic stress disorder (PTSD) F43.12 Active 378474774 Problem Bipolar affective disorder, remission status unspecified F31.9 Active 68795877 Problem Lumbago with sciatica, right side M54.41 Active 815552640 Problem Bipolar 1 disorder, depressed, moderate F31.32 Active 25755554 Problem Acute non-recurrent maxillary sinusitis J01.00 Active 84751488 Problem Bipolar 1 disorder, depressed, partial remission F31.75 Active 05239093 Problem Attention deficit hyperactivity disorder (ADHD), predominantly inattentive type F90.0 Active 41532889 Problem Bipolar I disorder with depression F31.9 Active 30543830 ALLERGIES No Information ENCOUNTERS Encounter Location Date Diagnosis [place] [address] 688317- 2078 Nov, [place] [address] 049618- 3514 September, [place] [address] 853452- 2750 Aug, [place] [address] 74995- 5238 Aug, Breast mass, right N63.10 [place] [address] 35351- 5311 Aug, Breast lump N63.0 [place] [address] 62886- 4523 Aug, [place] [address] 62915- 6439 Aug, Bipolar affective disorder, remission status unspecified F31.9 and Diabetes E11.9 [place] [address] 60066- 9253 Aug, Diabetes E11.9 ; Schizoaffective disorder, bipolar type F25.0 ; Pharyngitis due to other organism J02.8 ; Panlobular emphysema J43.1 and Irritable bowel syndrome with both constipation and diarrhea K58.2 [place] [address] 32304- 6498 Aug, Abnormal mammogram R92.8 [place] [address] [place] [address]- 2841 13 Aug, 2017 [facility] [address] [place] [id number] [place] [address] 50013- 0719 Aug, Bipolar 1 disorder, depressed, moderate F31.32 ; Panic disorder with agoraphobia F40.01 and Chronic post-traumatic stress disorder ( PTSD) F43.12 [facility] [address] [place] [id number] [place] [address] 65273- 5672 Aug, [facility] [address] [place] [id number] [place] [address] 95741- 8503 Aug, [facility] [address] 70824- 7438 Aug, [facility] [address] [place] [id number] [place] [address] 91194- 1085 Jul, [facility] [address] 31661- 4947 Jul, Mild persistent asthma without complication J45.30 [facility] [address] [place] [id number] [place] [address] 74893- 5507 19 Jul, 2017 Mild persistent asthma without complication J45.30 [facility] [address] [place] [id number] [place] [address] 49652- 4214 15 Jul, 2017 Bipolar affective disorder, remission status unspecified F31.9 ; Diabetes E11.9 and Irritable bowel syndrome with constipation K58.1 [facility] [address] [place] [id number] [place] [address] 35256- 7946 Jul, [facility] [address] [place] [id number] [place] [address] 71057- 5119 Jul, [facility] [address] [place] [id number] [place] [address] 90653- 2674 Jul, Frequent headaches R51 [facility] [address] [place] [id number] [place] [address] 05450- 6377 Jul, [facility] [address] [place] [address] 2247 Jul, [facility] [address] [place] [id number] [place] [address] 57716- 0379 Jul, [facility] [address] [place] [id number] [place] [address] 52592- 6763 Jul, Frequent headaches R51 ; Fibrocystic disease of left breast N60.12 ; Fibrocystic disease of right breast N60.11 and Diabetes E11.9 [facility] [address] [place] [id number] [place] [address] 62209- 3141 Jul, [place] [address] [place] [id number] [place] [address] 55553- 1759 Jul, [facility] [address] [place] [id number] [place] [address] 16106- 6685 Jun, Exudative tonsillitis J03.90 [place] [address] [place] [id number] [place] [address] 31366- 6770 Jun, [facility] [address] [place] [id number] [place] [address] 79933- 6364 Jun, [place] [address] [place] [id number] [place] [address] 12231- 6678 15 Jun, 2017 Mild persistent asthma without complication J45.30 ; Chronic obstructive pulmonary disease, unspecified COPD type J44.9 and Exudative tonsillitis J03.90 [place] [address] [place] [id number] [place] [address] 80010- 7192 13 Jun, 2017 Encounter for immunization Z23 [place] [address] [place] [id number] [place] [address] 92341- 3343 Jun, [place] [address] [place] [id number] [place] [address] 95796- 4078 Jun, [facility] [address] [place] [id number] [place] [address] 99952- 2946 Jun, [facility] [address] [place] [id number] [place] [address] 80334 -6704 06 Jun, 2017 Tonsillitis J03.90 [facility] [address] 61898- 6281 05 Jun, 2017 [place] [address] 90913- 1207 03 Jun, 2017 Acute non-recurrent maxillary sinusitis J01.00 [place] [address] 26913- 6866 02 Jun, 2017 [place] [address] 74517- 9724 May, [place] [address] 40547- 8535 May, [place] [address] 92241- 9018 May, GERD (gastroesophageal reflux disease) K21.9 [place] [address] 30779- 7723 May, Migraine without aura and without status migrainosus, not intractable G43.009 [place] [address] [place] [id number] [place] [address] 22692- 2117 May, [place] [address] [place] [id number] [place] [address] 22435- 2407 May, [place] [address] 03717- 0981 May, Panlobular emphysema J43.1 and Acute non-recurrent maxillary sinusitis J01.00 [place] [address] 05544- 0760 04 May, 2017 Bipolar 1 disorder, depressed, moderate F31.32 ; Panic disorder with agoraphobia F40.01 and Akathisia G25.71 [place] [address] 90679- 2022 Apr, [facility] [address] [place] [id number] [place] [address] 03709- 7023 Apr, [facility] [address] [place] [id number] [place] [address] 42201- 7746 Apr, Acute non-recurrent maxillary sinusitis J01.00 [facility] [address] 58770- 7306 07 Apr, 2017 Panlobular emphysema J43.1 [facility] [address] [place] [id number] [place] [address] 10937- 9479 Apr, [facility] [address] 42614 -7804 Apr, Exudative tonsillitis J03.90 and Sore throat J02.9 [place] [address] 15787- 2016 17 Mar, 2017 [facility] [address] [place] [id number] [place] [address] 92604- 7595 15 Mar, 2017 Acute non-recurrent maxillary sinusitis J01.00 [place] [address] [place] [id number] [place] [address] 79566- 3118 Mar, [place] [address] [place] [id number] [place] [address] 25102- 2166 Mar, Panlobular emphysema J43.1 and Diabetes E11.9 [facility] [address] [place] [id number] [place] [address] 84770- 2725 Mar, [facility] [address] [place] [id number] [place] [address] 53753 -7459 Feb, Wheezing R06.2 and Acute recurrent pansinusitis J01.41 [facility] [address] [place] [id number] [place] [address] 84821- 8403 Feb, [facility] [address] 49795- 9117 Feb, Acute non-recurrent maxillary sinusitis J01.00 [facility] [address] [place] [id number] [place] [address] 5955 Feb, Chronic obstructive pulmonary disease, unspecified J44.9 [facility] [address] [place] [address]- 2563 Feb, Hypoxemia R09.02 and Chronic obstructive pulmonary disease, unspecified J44.9 [place] [address] 8181 28 Jan, 2017 Bipolar 1 disorder, depressed, moderate F31.32 ; Panic disorder with agoraphobia F40.01 ; Chronic post-traumatic stress disorder (PTSD ) F43.12 ; Diabetes E11.9 and Moderate persistent asthma without complication J45.40 [place] [address] 64236- 4876 Jan, [place] [address] [place] [address]- 6812 Jan, Acute non-recurrent maxillary sinusitis J01.00 [place] [address] 269206- 3547 18 Jan, 2017 [place] [address] 47465- 6028 Jan, [place] [address] [place]3479- 4038 Jan, Moderate persistent asthma without complication J45.40 and Hypoxemia R09.02 [place] [address] [place] [id number] [place] [address] 82065- 2548 11 Jan, 2017 Moderate persistent asthma without complication J45.40 and Hypoxemia R09.02 [place] [address] [place] 43048198- 2542 Jan, [place] [address] [place] 43048186- 1689 Dec, Acute non-recurrent maxillary sinusitis J01.00 [facility] [address] [place] [address] 66140- 7925 Dec, Chronic obstructive pulmonary disease, unspecified J44.9 [facility] [address] [place] [id number] [place] [address] 24992- 4559 Dec, [facility] [address] [place] [id number] [place] [address] 29585- 8379 Dec, Mild persistent asthma without complication J45.30 and Other chronic pain G89.29 [facility] [address] [place] [id number] [place] [address] 32934- 7473 Nov, [facility] [address] [place] [id number] [place] [address] 32268- 8592 Nov, Acute non-recurrent maxillary sinusitis J01.00 [facility] [address] [place] [id number] [place] [address] 65884- 3696 Nov, [facility] [address] [place] [id number] [place] [address] 28179- 4181 Nov, [facility] [address] [place] [id number] [place] [address] 34660- 6240 Oct, [facility] [address] [place] [id number] [place] [address] 85345- 4569 Oct, Bipolar 1 disorder, depressed, partial remission F31.75 ; Panic disorder with agoraphobia F40.01 and Chronic post-traumatic stress disorder (PTSD) F43.12 [facility] [address] [place] [address] 50363- 9707 Oct, Acute non-recurrent maxillary sinusitis J01.00 [facility] [address] [place] [id number] [place] [address] 21213- 9704 Oct, [facility] [address] [place] [id number] [place] [address] 45271- 2375 Oct, Diabetes E11.9 [facility] [address] [place] [id number] [place] [address] 75605- 7536 September, Diabetes E11.9 [facility] [address] [address]- 5984 September, Diabetes E11.9 and Sinus tachycardia R00.0 [facility] [address] [place] [address] [address]- 9218 September, [facility] [address] [place] [id number] [place] [address] 12741- 5952 September, [facility] [address] [place] [id number] [place] [address] 11993- 1970 Aug, Diabetes E11.9 and Lumbago with sciatica, right side M54.41 [facility] [address] [place] [id number] [place] [address] 21464- 3253 Aug, [facility] [address] [place] [id number] [place] [address] 84678- 6259 Jul, Bipolar 1 disorder, depressed, moderate F31.32 ; Panic disorder with agoraphobia F40.01 and Chronic post-traumatic stress disorder ( PTSD) F43.12 [facility] [address] [place] [id number] [place] [address] 18913- 1481 Jul, Sore throat J02.9 [facility] [address] [address]- 9815 Jul, [facility] [address] [address]- 5294 Jul, [facility] [address] [address]- 6980 Jul, [facility] [address] [place] [id number] [place] [address] 42530- 2004 Jul, [facility] [address] [address]- 3573 Jul, Sore throat J02.9 and Pharyngitis, unspecified etiology J02.9 [facility] [address] [address]- 7641 Jun, [facility] [address] [address]- 8113 Jun, Diabetes E11.9 [facility] [address] [address]- 1626 Jun, [facility] [address] [place] [id number] [place] [address] 29038- 9681 Jun, [facility] [address] [address]- 8660 Jun, [facility] [address] [place] [address] 75896- 8625 Jun, [facility] [address] [place] [address] 91072- 5365 Jun, [facility] [address] [address]- 7261 Jun, [facility] [address] [address]- 6681 Jun, [facility] [address] [address]- 5395 Jun, [facility] [address] [address]- 1688 May, Diabetes E11.9 ; Other chronic pain G89.29 ; Acute recurrent maxillary sinusitis J01.01 ; Bipolar I disorder with depression F31.9 and Anxiety disorder, unspecified F41.9 [facility] [address] [address]- 8193 May, [facility] [address] [address]- 2892 May, Diabetes E11.9 ; Bipolar I disorder with depression F31.9 ; Anxiety disorder, unspecified F41.9 ; Other chronic pain G89.29 and Acute recurrent maxillary sinusitis J01.01 [place] [address] [place] [id number] [place] [address] 98981- 2480 May, [place] [address] [place] [id number] [place] [address] 32803- 740 May, Attention deficit hyperactivity disorder (ADHD), predominantly inattentive type F90.0 [place] [address] 39110- 2957 May, [place] [address] [place] [id number] [place] [address] 79402- 8591 Apr, Attention deficit hyperactivity disorder (ADHD), predominantly inattentive type F90.0 and Non-seasonal allergic rhinitis due to other allergic trigger J30.89 [place] [address] [place] [address] [place] [address] 91728- 7519 Apr, Bipolar 1 disorder, depressed, moderate F31.32 ; Panic disorder with agoraphobia F40.01 and Chronic post-traumatic stress disorder ( PTSD) F43.12 [place] [address] [place] [address] [place] [address] 62873- 9080 06 Apr, 2016 Dental examination Z01.20 [place] [address] [place] [address] [place] [address] 42537- 1714 Mar, [place] [address] [place] [address] [place] [address] 56771- 2869 Mar, [place] [address] [place] [address] [place] [address] 09095- 5194 Mar, Bipolar I disorder with depression F31.9 and Anxiety disorder, unspecified F41.9 [place] [address] [place] [address] [place] [address] 71263- 4140 08 Mar, 2016 Panic disorder with agoraphobia F40.01 ; Bipolar 1 disorder , depressed, moderate F31.32 and Chronic post-traumatic stress disorder (PTSD) F43.12 [place] [address] [place] [id number] [place] [address] 50855- 7342 Mar, [facility] [address] [place] [id number] [place] [address] 26335- 9038 02 Mar, 2016 Dental caries K02.9 [place] [address] [place] [address] [place] [address] 98357- 3283 24 Feb, 2016 Lumbago with sciatica, left side M54.42 ; Lumbago with sciatica, right side M54.41 and Other chronic pain G89.29 [place] [address] [place] [address] [place] [address] 02339- 8066 17 Feb, 2016 [place] [address] 56760- 1159 14 Feb, 2016 [place] [address] [place] [id number] [place] [address] 55412- 8638 13 Feb, 2016 Bipolar I disorder with depression F31.9 ; PTSD (post- traumatic stress disorder) F43.10 and Mood disorder F39 [place] [address] [place] [id number] [place] [address] 53219- 7629 13 Feb, 2016 [place] [address] [place] [id number] [place] [address] 26035- 7180 11 Feb, 2016 Dental examination Z01.20 [place] [address] [place] [id number] [place] [address] 91059- 0516 07 Feb, 2016 [facility] [address] [place] [id number] [place] [address] 21059 -9528 03 Feb, 2016 Acute bronchitis, unspecified organism J20.9 [place] [address] [place] [id number] [place] [address] 58485- 7808 26 Jan, 2016 Mood disorder F39 ; Migraine without aura and without status migrainosus, not intractable G43.009 ; Irritable bowel syndrome, unspecified type K58.9 ; Diabetes E11.9 and Encounter for immunization Z23 [place] [address] [place] [id number] [place] [address] 47744- 0497 15 Jan, 2016 [place] [address] [place] [address] [address]- 7572 Jan, [facility] [address] [address]- 2210 Jan, [facility] [address] [address]- 8689 Jan, [facility] [address] [place] [address] 53308- 4239 Jan, [facility] [address] [place] [id number] [place] [address] 59654- 6939 Dec, Bipolar I disorder with depression F31.9 ; PTSD (post- traumatic stress disorder) F43.10 and Panic disorder with agoraphobia F40.01 [facility] [address] [address]- 4523 Dec, Chronic obstructive pulmonary disease, unspecified COPD type J44.9 ; Tremor R25.1 and Anxiety F41.9 [facility] [address] [place] [address] [address]- 6873 Dec, [facility] [address] [place] [id number] [place] [address] 18865- 9346 Nov, Tremors of nervous system R25.1 and Cramping of feet R25.2 [facility] [address] [address]- 5837 Nov, [facility] [address] [address]- 9122 Nov, [facility] [address] [address]- 6374 Oct, Chronic obstructive pulmonary disease, unspecified J44.9 [facility] [address] [address]- 9304 Oct, [facility] [address] [address]- 6891 Oct, Tremor R25.1 [place] [address] [address]- 4046 23 Oct, 2015 Bipolar I disorder with depression F31.9 ; Diabetes E11.9 ; PTSD (post-traumatic stress disorder) F43.10 and Panic disorder with agoraphobia F40.01 [place] [address] [place] [id number] [place] [address] 05255- 8914 16 Oct, 2015 Mood disorder F39 [place] [address] [place] [id number] [place] [address] 56504- 3984 September, [place] [address] [place] [id number] [place] [address] 18659- 9218 September, Diabetes E11.9 ; Bipolar I disorder with depression F31.9 ; PTSD (post-traumatic stress disorder) F43.10 and Panic disorder with agoraphobia F40.01 [place] [address] [place] [id number] [place] [address] 48125- 9248 September, Mood disorder F39 ; Schizoaffective disorder, unspecified type F25.9 ; Arthritis M19.90 ; Tremor R25.1 ; Acute non-recurrent frontal sinusitis J01.10 and Blood in stool K92.1 [place] [address] [place] [id number] [place] [address] 03938- 4843 September, [place] [address] [place] [id number] [place] [address] 95297- 1406 September, Chronic obstructive pulmonary disease, unspecified J44.9 [place] [address] [place] [address] [place] [address] 99666- 6291 September, Diabetes E11.9 [place] [address] [place] [id number] [place] [address] 50315- 5882 Aug, Other bipolar disorder F31.89 and Anxiety disorder, unspecified F41.9 [place] [address] [place] [id number] [place] [address] 87910- 5669 Aug, [place] [address] [place] [id number] [place] [address] 41068- 6249 Aug, Diabetes E11.9 [facility] [address] [place] [id number] [place] [address] 47460- 5506 Aug, [facility] [address] [place] [id number] [place] [address] 44244- 1682 Aug, Diabetes E11.9 ; Fatigue R53.83 and Dizziness R42 [facility] [address] [address]- [address] Aug, Other bipolar disorder F31.89 [facility] [id number] [place] [address] 16937- 5302 Aug, Generalized anxiety disorder F41.1 [facility] [id number] [place] [address] 91817- 8221 Aug, Other bipolar disorder F31.89 and Anxiety disorder, unspecified F41.9 [facility] [id number] [place] [address] 64629- 9115 Aug, [facility] [id number] [place] [address] 22841- 4584 Jul, [facility] [id number] [place] [address] [id number]- [phone] 24 Jul, 2015 [facility] [id number] [place] [address] 05575- 9089 Jul, Bronchitis J40 [facility] [id number] [place] [address] 18588- 6393 Jul, Anxiety disorder F41.9 [facility] [id number] [place] [address] 61401- 1133 Jul, Other bipolar disorder F31.89 and Anxiety disorder, unspecified F41.9 [facility] [id number] [place] [address] 16894- 0529 Jul, Other bipolar disorder F31.89 and Fibromyalgia M79.7 [facility] [address] [id number] [place] [address] 44157- 4976 Jul, [facility] [id number] [place] [address] 73036- 9388 Jul, [facility] [id number] [place] [address] 64148- 9341 Jul, [facility] [id number] [place] [address] 40511- 3080 Jul, Other bipolar disorder F31.89 and Anxiety disorder, unspecified F41.9 [facility] [id number] [place] [address] 56835- 5262 Jun, GERD (gastroesophageal reflux disease) K21.9 [facility] [id number] [place] [address] 01856- 7773 Jun, [facility] [id number] [place] [address] 99883- 8725 May, [facility] [id number] [place] [address] 66901- 4441 May, Diabetes E11.9 ; Back pain M54.9 ; GERD (gastroesophageal reflux disease) K21.9 ; Hypertension I10 and Peripheral neuropathy G62.9 [facility] [id number] [place] [address] 58976- 1608 Mar, [facility] [id number] [place] [address] 71408- 4957 Mar, [facility] [id number] [place] [address] 35517- 3371 Mar, Acute sinusitis J01.90 and Otitis media, left H66.92 [facility] [id number] [place] [address] 62253- 1677 Feb, [facility] [id number] [place] [address] 80336- 8558 Feb, [facility] [address] 0[address]34- 8855 Feb, [facility] [address] [address] 8111 Feb, [facility] [id number] [place] [address] 24994- 3353 Jan, [facility] [id number] [place] [address] 16087- 3490 Jan, Diabetes 250.00 and Back pain 724.5 [facility] [id number] [place] [address] 26943- 1509 Jan, [facility] [id number] [place] [address] 33995- 6964 Dec, Diabetes 250.00 ; Benign essential hypertension 401.1 and Allergic rhinitis 477.9 [facility] [id number] [place] [address] 45419- 1613 Dec, [facility] [id number] [place] [address] 05940- 0509 Dec, [facility] [id number] [place] [address] 42702- 2346 Dec, Psychosis 298.9 [facility] [id number] [place] [address] 92697- 4543 Dec, Medication side effect 995.20 and Generalized anxiety disorder 300.02 [facility] [id number] [place] [address] 48658- 4135 Dec, Acquired cognitive dysfunction 294.9 [facility] [id number] [place] [address] 92461- 2004 Dec, [facility] [id number] [place] [address] 14773- 8541 Dec, Unspecified myalgia and myositis 729.1 and Generalized anxiety disorder 300.02 [facility] [id number] [place] [address] 02185- 8314 Nov, [facility] [address] [address]- 2274 Nov, [facility] [id number] [place] [address] 96765- 1130 Nov, [facility] [address] [address]- 0357 Nov, Upper respiratory infection 465.9 and Chronic airway obstruction, not elsewhere classified 496 [facility] [id number] [place] [address] 89020- 2463 Nov, Hyponatremia 276.1 [facility] [id number] [place] [address] 66462- 7872 Oct, [facility] [id number] [place] [address] 44827- 9158 Oct, [facility] [id number] [place] [address] 38091- 1592 Oct, [facility] [id number] [place] [address] 35783- 4463 Oct, [facility] [id number] [place] [address] 04767- 5112 Oct, Hyponatremia 276.1 [facility] [address] [address]- 5974 Oct, [facility] [address] [address]- 2776 Oct, [facility] [address] [address]- 2489 Oct, Generalized anxiety disorder 300.02 [facility] [id number] [place] [address] 94149- 4933 Oct, Generalized anxiety disorder 300.02 and Diabetes 250.00 [facility] [address] [address]- 8785 Aug, [facility] [id number] [place] [address]- 3639 13 Aug, 2014 [facility] [address] [id number] [place] [address]- 8778 Jul, [facility] [place] [facility] [address] [id number] [place] [address]- 8244 Jul, [facility] [address] [id number] [place] [address]- 0795 Jun, [facility] [place] [facility] [address] [id number] [place] [address]- 6307 Jun, [facility] [place] [facility] [address] [id number] [place] [address]- 4959 Jun, [facility] [address] [id number] [place] [address]- 4840 Jun, [facility] [place] [facility] [address] [id number] [place] [address]- 4801 Jun, [facility] [address] [id number] [place] [address]- 0356 May, [facility] [address] [id number] [place] [address]- 6770 May, [facility] [address] [id number] [place] [address]- 7767 Apr, [facility] [place] [facility] [address] [id number] [place] [address]- 3355 Apr, [facility] [place] [facility] [address] [id number] [place] [address]- 4196 18 Apr, 2013 [facility] [place] [facility] [address] [id number] [place] [address]- 9688 18 Apr, 2013 [facility] [place] [facility] [address] [id number] [place] [address]- 2177 17 Apr, 2013 [facility] [place] [facility] [address] [id number] [place] [address]- 2355 Apr, [facility] [place] [facility] [address] [id number] [place] [address] 2547 Apr, [facility] [place] [facility] [address] [id number] [place] [address]- 4576 Apr, [facility] [place] [facility] [address] [id number] [place] [address] 2546 Feb, [facility] [place] [facility] [address] [id number] [place] [address]- 2542 Feb, [facility] [place] [facility] [address] [id number] [place] [address] 2547 Jan, [facility] [place] [facility] [address] [id number] [place] [address] 2546 Jan, [facility] [place] [facility] [address] [id number] [place] [address]- 1055 Dec, [facility] [place] [facility] [address] [id number] [place] [address]- 7371 Dec, [facility] [place] [facility] [address] [id number] [place] [address]- 5211 Dec, [facility] [place] [facility] [address] [id number] [place] [address]- 9570 Nov, [facility] [place] [facility] [address] [id number] [place] [address]- 2549 Nov, [facility] [place] [facility] [address] [id number] [place] [address]- 2545 Nov, [facility] [place] [facility] [address] [id number] [place] [address]- 2542 Oct, [facility] [place] [facility] [address] [id number] [place] [address]- 2546 Oct, [facility] [place] [facility] [address] [id number] [place] [address]- 2546 Oct, [facility] [place] [facility] [address] [id number] [place] [address]- 1658 September, [facility] [address] [id number] [place] [address]- 7031 September, [facility] [address] [id number] [place] [address]- 5136 September, [facility] [address] [id number] [place] [address]- 2078 Aug, [facility] [address] [id number] [place] [address]- 8048 Aug, [facility] [address] [id number] [place] [address]- 6205 Aug, [facility] [address] [id number] [place] [address]- 5626 16 Aug, 2011 [facility] [address] [id number] [place] [address]- 2299 Jul, [facility] [address] [id number] [place] [address]- 0166 Jun, [facility] [address] [id number] [place] [address]- 6204 14 Jun, 2011 [facility] [address] [id number] [place] [address]- 8758 13 Jun, 2011 [facility] [address] [id number] [place] [address]- 4336 07 Jun, 2011 [facility] [address] [id number] [place] [address]- 5486 Jun, [facility] [place] [facility] [address] [id number] [place] [address]- 2295 13 May, 2011 [facility] [place] [facility] [address] [id number] [place] [address]- 8836 May, [facility] [address] [id number] [place] [address]- 2326 May, [facility] [place] [facility] [address] [id number] [place] [address]- 8537 May, [facility] [place] [facility] [address] [id number] [place] [address]- 7036 Apr, [facility] [place] [facility] [address] [id number] [place] [address]- 2000 Apr, [facility] [place] [facility] [address] [id number] [place] [address]- 8594 Apr, [facility] [place] [facility] [address] [id number] [place] [address]- 6269 Mar, [facility] [place] [facility] [address] [id number] [place] [address]- 9154 Mar, [facility] [place] [facility] [address] [id number] [place] [address]- 9761 Mar, [facility] [place] [facility] [address] [id number] [place] [address]- 2214 13 Feb, 2011 [facility] [place] [facility] [address] [id number] [place] [address]- 6536 Feb, [facility] [place] [facility] [address] [id number] [place] [address]- 6286 13 Feb, 2011 [facility] [place] [facility] [address] [id number] [place] [address]- 9966 Nov, [facility] [place] [facility] [address] [id number] [place] [address]- 3036 September, [facility] [place] [facility] [address] [id number] [place] [address]- 2099 Aug, [facility] [place] [facility] [address] [id number] [place] [address]- 2152 14 Jul, 2010 [facility] [place] [facility] [address] [id number] [place] [address]- 8687 May, [facility] [place] [facility] [address] [facility] [id number] [place] [address]- 6833 31 Apr, 2010 [facility] [address] [facility] [id number] [place] [address]- 0401 30 Apr, 2010 [facility] [address] [facility] [id number] [place] [address]- 8424 Apr, [facility] [address] [facility] [id number] [place] [address]- 0703 Apr, [facility] [address] [facility] [id number] [place] [address]- 4093 Apr, IMMUNIZATIONS No Known Immunizations SOCIAL HISTORY Never Assessed REASON FOR VISIT xray results PLAN OF CARE VITAL SIGNS MEDICATIONS Unknown [...]
--- OUTSIDE RECORDS SUMMARY | 2017-11-18 07:16 | XMS REPORT ---
Author Author JOHANN YVON Organization [facility] Address [address] [place] [address] Care Team Providers Care Cook Chili Name Role Phone KYE WILLSA Unavailable PROBLEMS Type Condition ICD9-CM Code AQL08-DJ Code Onset Dates Condition Status SNOMED Code Problem Back pain M54.9 Active 499020137 Problem GERD (gastroesophageal reflux disease) K21.9 Active 513401967 Problem Diabetes E11.9 Active 95063479 Problem Hypertension I10 Active 98578719 Problem Anxiety disorder, unspecified F41.9 Active 219144121 Problem Other bipolar disorder F31.89 Active 32314795 Problem Mild persistent asthma without complication J45.30 Active 042426270 Problem Fibromyalgia M79.7 Active 86459443 Problem Moderate persistent asthma without complication J45.40 Active 018032470 Problem Panic disorder with agoraphobia F40.01 Active 56431595 Problem Panlobular emphysema J43.1 Active 9808273 Problem Migraine without aura and without status migrainosus, not intractable G43.009 Active 521293163 Problem Akathisia G25.71 Active 866079022 Problem Schizoaffective disorder, bipolar type F25.0 Active 51298226 Problem Irritable bowel syndrome with both constipation and diarrhea K58.2 Active 89402024 Problem Lumbago with sciatica, left side M54.42 Active 478861512 Problem Other chronic pain G89.29 Active 78186100 Problem Chronic obstructive pulmonary disease, unspecified J44.9 Active 31467361 Problem Fibrocystic disease of left breast N60.12 Active 80399411 Problem Fibrocystic disease of right breast N60.11 Active 48632098 Problem Irritable bowel syndrome with constipation K58.1 Active 988429639 Problem Arthritis M19.90 Active 5391500 Problem Chronic post-traumatic stress disorder (PTSD) F43.12 Active 461603271 Problem Bipolar affective disorder, remission status unspecified F31.9 Active 75717494 Problem Lumbago with sciatica, right side M54.41 Active 081713540 Problem Bipolar 1 disorder, depressed, moderate F31.32 Active 13884563 Problem Acute non-recurrent maxillary sinusitis J01.00 Active 65179802 Problem Bipolar 1 disorder, depressed, partial remission F31.75 Active 50837018 Problem Attention deficit hyperactivity disorder (ADHD), predominantly inattentive type F90.0 Active 63919266 Problem Bipolar I disorder with depression F31.9 Active 35423965 ALLERGIES Substance Reaction Event Type Date Status Penicillin V Potassium Unknown Drug Allergy Jan, Active Effexor anaphylaxis Drug Allergy Jan, Active Darvocet-N 50 Unknown Drug Allergy Jan, Active Cefdinir Swelling Drug Allergy Jan, Active Benadryl vomiting/swelling Drug Allergy Jan, Active ENCOUNTERS Encounter Location Date Diagnosis [facility] [id number] [place] [address] 61028- 3561 Nov, [facility] [address] 65701- 4971 September, [facility] [address] 00463- 3693 September, Frequent headaches R51 [facility] [address] 82569- 8548 Aug, [facility] [id number] [place] [address] 82654- 1583 Aug, Breast mass, right N63.10 [facility] [id number] [place] [address] 99584- 0373 Aug, Breast lump N63.0 [facility] [id number] [place] [address] 79456- 4613 Aug, [facility] [id number] [place] [address] 79458- 1508 Aug, Bipolar affective disorder, remission status unspecified F31.9 and Diabetes E11.9 [facility] [id number] [place] [address] 19904- 7446 Aug, Diabetes E11.9 ; Schizoaffective disorder, bipolar type F25.0 ; Pharyngitis due to other organism J02.8 ; Panlobular emphysema J43.1 and Irritable bowel syndrome with both constipation and diarrhea K58.2 [facility] [id number] [place] [address] 28373- 2971 Aug, Abnormal mammogram R92.8 [facility] [address] 67687- 2532 Aug, [facility] [id number] [place] [address] 58915- 2224 Aug, Bipolar 1 disorder, depressed, moderate F31.32 ; Panic disorder with agoraphobia F40.01 and Chronic post-traumatic stress disorder ( PTSD) F43.12 [facility] [id number] [place] [address] 84977- 2382 Aug, [facility] [address] 38922- 8660 Aug, [facility] [id number] [place] [address] 80639- 9203 Aug, [facility] [address] 70192- 0240 Jul, [facility] [id number] [place] [address] 06768- 9487 Jul, Mild persistent asthma without complication J45.30 [facility] [id number] [place] [address] 77114- 2347 19 Jul, 2017 Mild persistent asthma without complication J45.30 [facility] [id number] [place] [address] 05540- 5300 15 Jul, 2017 Bipolar affective disorder, remission status unspecified F31.9 ; Diabetes E11.9 and Irritable bowel syndrome with constipation K58.1 [facility] [id number] [place] [address] 29961- 4365 Jul, [facility] [address] [address] 4115 Jul, [facility] [id number] [place] [address] 90864- 4183 Jul, Frequent headaches R51 [facility] [id number] [place] [address] 09385- 5625 Jul, [facility] [id number] [place] [address] 10484- 9499 Jul, [facility] [id number] [place] [address] 52778- 0034 Jul, [facility] [id number] [place] [address] 57205- 2514 Jul, Frequent headaches R51 ; Fibrocystic disease of left breast N60.12 ; Fibrocystic disease of right breast N60.11 and Diabetes E11.9 [facility] [id number] [place] [address] 22038- 1025 Jul, [facility] [id number] [place] [address] 30915- 0771 Jul, [facility] [id number] [place] [address] 02545- 0453 Jun, Exudative tonsillitis J03.90 [facility] [id number] [place] [address] 12475- 7638 Jun, [facility] [id number] [place] [address] 39744- 4869 19 Jun, 2017 [facility] [address] [place] [address] 25946- 5106 15 Jun, 2017 Mild persistent asthma without complication J45.30 ; Chronic obstructive pulmonary disease, unspecified COPD type J44.9 and Exudative tonsillitis J03.90 [facility] [address] [place] [address] 73799- 1140 13 Jun, 2017 Encounter for immunization Z23 [facility] [id number] [place] [address] 33469- 9405 Jun, [facility] [address] 71951- 1890 Jun, [facility] [id number] [place] [address] 37934- 1985 Jun, [facility] [id number] [place] [address] 10058 -8542 Jun, Tonsillitis J03.90 [facility] [id number] [place] [address] 86902- 0829 Jun, [facility] [id number] [place] [address] 63934- 4547 Jun, Acute non-recurrent maxillary sinusitis J01.00 [facility] [id number] [place] [address] 76508- 4091 Jun, [facility] [id number] [place] [address] 41830- 9037 May, [facility] [id number] [place] [address] 36033- 4064 May, [facility] [id number] [place] [address] 14673- 0108 May, GERD (gastroesophageal reflux disease) K21.9 [facility] [id number] [place] [address] 37042- 8887 May, Migraine without aura and without status migrainosus, not intractable G43.009 [facility] [id number] [place] [address] 93445- 1262 May, [facility] [id number] [place] [address] 47608- 0649 May, [facility] [id number] [place] [address] 92189- 1415 May, Panlobular emphysema J43.1 and Acute non-recurrent maxillary sinusitis J01.00 [facility] [address] 68625- 5196 May, Bipolar 1 disorder, depressed, moderate F31.32 ; Panic disorder with agoraphobia F40.01 and Akathisia G25.71 [facility] [facility] [address] 01410- 8221 Apr, [facility] [address] 80429- 2654 Apr, [facility] [facility] [address] 89589- 0721 Apr, Acute non-recurrent maxillary sinusitis J01.00 [facility] [address] 60768- 4936 Apr, Panlobular emphysema J43.1 [address] [address] 13719- 0081 Apr, [facility] [address] 22257 -1866 Apr, Sore throat J02.9 and Exudative tonsillitis J03.90 [facility] [facility] [address] 11009- 1541 Mar, [facility] [address] 97310- 8437 Mar, Acute non-recurrent maxillary sinusitis J01.00 [facility] [address] 94478- 5063 Mar, [place] [address] 39210- 6994 Mar, Panlobular emphysema J43.1 and Diabetes E11.9 [facility] [address] 40054- 1370 Mar, [facility] [address] [address] Feb, Wheezing R06.2 and Acute recurrent pansinusitis J01.41 [facility] [id number] [place] [address] 62176- 9637 Feb, [facility] [id number] [place] [address] 78232- 7890 Feb, Acute non-recurrent maxillary sinusitis J01.00 [facility] [id number] [place] [address] 24285- 1792 Feb, Chronic obstructive pulmonary disease, unspecified J44.9 [facility] [id number] [place] [address] 95339- 5827 Feb, Hypoxemia R09.02 and Chronic obstructive pulmonary disease, unspecified J44.9 [facility] [id number] [place] [address] 70384- 6711 28 Jan, 2017 Bipolar 1 disorder, depressed, moderate F31.32 ; Panic disorder with agoraphobia F40.01 ; Chronic post-traumatic stress disorder (PTSD ) F43.12 ; Diabetes E11.9 and Moderate persistent asthma without complication J45.40 [facility] [id number] [place] [address] 62568- 2103 22 Jan, 2017 [facility] [id number] [place] [address] 68756- 9889 19 Jan, 2017 Acute non-recurrent maxillary sinusitis J01.00 [facility] [id number] [place] [address] 15474- 6964 18 Jan, 2017 [facility] [id number] [place] [address] 77230- 9823 18 Jan, 2017 [facility] [id number] [place] [address] 17850- 2105 12 Jan, 2017 Moderate persistent asthma without complication J45.40 and Hypoxemia R09.02 [facility] [address] [place] [address]- 5216 Jan, Moderate persistent asthma without complication J45.40 and Hypoxemia R09.02 [facility] [id number] [place] [address] 25577- 1596 Jan, [facility] [id number] [place] [address] 61241- 3686 Dec, Acute non-recurrent maxillary sinusitis J01.00 [facility] [id number] [place] [address] 36006- 5081 Dec, Chronic obstructive pulmonary disease, unspecified J44.9 [facility] [address] 61416- 9876 Dec, [facility] [id number] [place] [address] 38743- 2966 Dec, Mild persistent asthma without complication J45.30 and Other chronic pain G89.29 [facility] [id number] [place] [address] 08636- 9085 Nov, [facility] [id number] [place] [address] 13268- 7317 Nov, Acute non-recurrent maxillary sinusitis J01.00 [facility] [id number] [place] [address] 92555- 9119 Nov, [facility] [id number] [place] [address] 16230- 0106 Nov, [facility] [id number] [place] [address] 76297 2541 Oct, [facility] [id number] [place] [address] 12897- 7795 Oct, Bipolar 1 disorder, depressed, partial remission F31.75 ; Panic disorder with agoraphobia F40.01 and Chronic post-traumatic stress disorder (PTSD) F43.12 [facility] [id number] [place] [address] 17284- 1171 Oct, Acute non-recurrent maxillary sinusitis J01.00 [facility] [id number] [place] [address] 73264- 1838 Oct, [facility] [id number] [place] [address] 58334- 2881 Oct, Diabetes E11.9 [facility] [id number] [place] [address] 57947- 7925 September, Diabetes E11.9 [facility] [id number] [place] [address] 01819- 5363 September, Diabetes E11.9 and Sinus tachycardia R00.0 [facility] [id number] [place] [address] 97770- 5030 September, [facility] [id number] [place] [address] 69441- 1033 September, [facility] [id number] [place] [address] 75618- 3330 Aug, Diabetes E11.9 and Lumbago with sciatica, right side M54.41 [facility] [id number] [place] [address] 25218- 3998 Aug, [facility] [id number] [place] [address] 34436- 5841 Jul, Bipolar 1 disorder, depressed, moderate F31.32 ; Panic disorder with agoraphobia F40.01 and Chronic post-traumatic stress disorder ( PTSD) F43.12 [facility] [id number] [place] [address] 96104- 7398 Jul, Sore throat J02.9 [facility] [id number] [place] [address] 13525- 9293 Jul, [facility] [id number] [place] [address] 70261- 0701 Jul, [facility] [id number] [place] [address] 14412- 9299 Jul, [facility] [address], [place] [address]- 0512 Jul, [facility] [address] [address]37 Jul, Sore throat J02.9 and Pharyngitis, unspecified etiology J02.9 [facility] [address], [place] [address]- 7983 Jun, [facility] [id number] [place] [address] 78699- 7538 Jun, Diabetes E11.9 [facility] [id number] [place] [address] 72751- 1815 Jun, [facility] [id number] [place] [address] 91998- 1803 Jun, [facility] [address], [place] [address]- 1631 Jun, [facility] [address] [address]- 1725 Jun, [facility] [address], [place] [address]- 9736 Jun, [facility] [address], [place] [address]- 5915 15 Jun, 2016 [facility] [address], [place] [address]- 1660 Jun, [facility] [address], [place] [address]- 7114 Jun, [facility] [address] 2898 May, Diabetes E11.9 ; Bipolar I disorder with depression F31.9 ; Other chronic pain G89.29 ; Acute recurrent maxillary sinusitis J01.01 and Anxiety disorder, unspecified F41.9 [id number] [place] [address] 11148- 4905 May, [facility] [id number] [place] [address] 57069- 9687 May, Diabetes E11.9 ; Bipolar I disorder with depression F31.9 ; Anxiety disorder, unspecified F41.9 ; Other chronic pain G89.29 and Acute recurrent maxillary sinusitis J01.01 [facility] [id number] [place] [address] 28342- 0624 May, [facility] [id number] [place] [address] 13629- 1161 May, Attention deficit hyperactivity disorder (ADHD), predominantly inattentive type F90.0 [facility] [id number] [place] [address] 48118- 1348 May, [facility] [id number] [place] [address] 45683- 2738 Apr, Attention deficit hyperactivity disorder (ADHD), predominantly inattentive type F90.0 and Non-seasonal allergic rhinitis due to other allergic trigger J30.89 [facility] [id number] [place] [address] 63399- 2738 Apr, Bipolar 1 disorder, depressed, moderate F31.32 ; Panic disorder with agoraphobia F40.01 and Chronic post-traumatic stress disorder ( PTSD) F43.12 [facility] [id number] [place] [address] 14454- 8810 Apr, Dental examination Z01.20 [facility] [id number] [place] [address] 10905- 4136 Mar, [facility] [id number] [place] [address] 17193- 2413 Mar, [facility] [id number] [place] [address] 45360- 2761 Mar, Bipolar I disorder with depression F31.9 and Anxiety disorder, unspecified F41.9 [facility] [address] 64174- 7295 08 Mar, 2016 Panic disorder with agoraphobia F40.01 ; Bipolar 1 disorder , depressed, moderate F31.32 and Chronic post-traumatic stress disorder (PTSD) F43.12 [facility] [facility] [address] 38731- 7867 Mar, [facility] [address] 28039- 9288 Mar, Dental caries K02.9 [address] [facility] [address] 757482- 1775 Feb, Lumbago with sciatica, left side M54.42 ; Lumbago with sciatica, right side M54.41 and Other chronic pain G89.29 [facility] [facility] [address] 39509- 8521 17 Feb, 2016 [place] [facility] [address] 41076- 7195 14 Feb, 2016 [address] [facility] [address] 16583- 7808 Feb, Bipolar I disorder with depression F31.9 ; PTSD (post- traumatic stress disorder) F43.10 and Mood disorder F39 [facility] [address] 60576- 8185 Feb, [facility] [facility] [address] 55126- 7139 11 Feb, 2016 Dental examination Z01.20 [place] [address] 33512- 2816 07 Feb, 2016 [facility] [id number] [place] [address] 62262 -3595 03 Feb, 2016 Acute bronchitis, unspecified organism J20.9 [facility] [address] [place] [address]- 8584 Jan, Mood disorder F39 ; Migraine without aura and without status migrainosus, not intractable G43.009 ; Irritable bowel syndrome, unspecified type K58.9 ; Diabetes E11.9 and Encounter for immunization Z23 [facility] [id number] [place] [address] 75143- 3765 Jan, [facility] [address] 62003- 2404 Jan, [place] [facility] [address] 20607- 8735 Jan, [place] [facility] [address] 36499- 1201 Jan, [place] [facility] [address] 61856- 8591 Jan, [facility] [facility] [address] 21311- 8710 Dec, Bipolar I disorder with depression F31.9 ; PTSD (post- traumatic stress disorder) F43.10 and Panic disorder with agoraphobia F40.01 [facility] [id number] [place] [address] 30074- 8419 Dec, Chronic obstructive pulmonary disease, unspecified COPD type J44.9 ; Tremor R25.1 and Anxiety F41.9 [facility] [id number] [place] [address] 41804- 9118 Dec, [facility] [id number] [place] [address] 81654- 9337 Nov, Tremors of nervous system R25.1 and Cramping of feet R25.2 [facility] [id number] [place] [address] 37494- 3113 Nov, [facility] [id number] [place] [address] 63058- 7523 Nov, [facility] [facility] [id number] [place] [address] 31977- 8107 Oct, Chronic obstructive pulmonary disease, unspecified J44.9 [facility] [id number] [place] [address] 89566- 6297 Oct, [facility] [id number] [place] [address] 29912- 4323 Oct, Tremor R25.1 [facility] [id number] [place] [address] 28957- 5103 Oct, Bipolar I disorder with depression F31.9 ; Diabetes E11.9 ; PTSD (post-traumatic stress disorder) F43.10 and Panic disorder with agoraphobia F40.01 [facility] [id number] [place] [address] 50610- 3638 Oct, Mood disorder F39 [facility] [id number] [place] [address] 63435- 9838 September, [facility] [id number] [place] [address] 32459- 8488 September, Diabetes E11.9 ; Bipolar I disorder with depression F31.9 ; PTSD (post-traumatic stress disorder) F43.10 and Panic disorder with agoraphobia F40.01 [facility] [address] [place] [address] 07195- 4899 September, Mood disorder F39 ; Schizoaffective disorder, unspecified type F25.9 ; Arthritis M19.90 ; Tremor R25.1 ; Acute non-recurrent frontal sinusitis J01.10 and Blood in stool K92.1 [facility] [id number] [place] [address] 28535- 4383 September, [facility] [id number] [place] [address] 27464- 6400 September, Chronic obstructive pulmonary disease, unspecified J44.9 [facility] [id number] [place] [address] 55619- 9562 September, Diabetes E11.9 [facility] [address] [place] [address]- 1823 Aug, Other bipolar disorder F31.89 and Anxiety disorder, unspecified F41.9 [facility] [id number] [place] [address] [phone] Aug, [facility] [id number] [place] [address] [phone] Aug, Diabetes E11.9 [facility] [id number] [place] [address] [id number] Aug, [facility] [id number] [place] [address] [phone] 14 Aug, 2015 Diabetes E11.9 ; Fatigue R53.83 and Dizziness R42 [facility] [id number] [place] [address] [phone] Aug, Other bipolar disorder F31.89 [facility] [id number] [place] [address] [phone] Aug, Generalized anxiety disorder F41.1 [facility] [address] [id number] [place] [address] 45711- 2223 Aug, Other bipolar disorder F31.89 and Anxiety disorder, unspecified F41.9 [facility] [address], [place] [address] Aug, [facility] [id number] [place] [address] 51756- 0252 Jul, [facility] [id number] [place] [address] 05882- 8854 Jul, [facility] [id number] [place] [address] 67640- 9520 Jul, Bronchitis J40 [facility] [id number] [place] [address] 04212- 9364 Jul, Anxiety disorder F41.9 [facility] [id number] [place] [address] 26814- 3214 Jul, Other bipolar disorder F31.89 and Anxiety disorder, unspecified F41.9 [facility] [id number] [place] [address] 11013- 1956 18 Jul, 2015 Other bipolar disorder F31.89 and Fibromyalgia M79.7 [facility] [id number] [place] [address] 20449- 3962 Jul, [facility] [id number] [place] [address] 66394- 5087 Jul, [facility] [id number] [place] [address] 66998- 3359 Jul, [facility] [id number] [place] [address] 91684- 6812 Jul, Other bipolar disorder F31.89 and Anxiety disorder, unspecified F41.9 [facility] [id number] [place] [address] 57884- 7720 Jun, GERD (gastroesophageal reflux disease) K21.9 [facility] [id number] [place] [address] 83133- 5206 Jun, [facility] [id number] [place] [address] 98084- 2527 May, [facility] [id number] [place] [address] 62392- 2456 May, Diabetes E11.9 ; Back pain M54.9 ; GERD (gastroesophageal reflux disease) K21.9 ; Hypertension I10 and Peripheral neuropathy G62.9 [facility] [id number] [place] [address] 59881- 1189 Mar, [facility] [id number] [place] [address] 24087- 6991 Mar, [facility] [id number] [place] [address] 19071- 0683 Mar, Acute sinusitis J01.90 and Otitis media, left H66.92 [facility] [id number] [place] [address] 61877- 6568 Feb, [facility] [id number] [place] [address] 43652- 2086 Feb, [facility] [id number] [place] [address] 00176- 6245 Feb, [facility] [id number] [place] [address] 06616- 0545 Feb, [facility] [id number] [place] [address] 81541- 6158 Jan, [facility] [id number] [place] [address] 07093- 6100 Jan, Diabetes 250.00 and Back pain 724.5 [facility] [id number] [place] [address] 02391- 9374 Jan, [facility] [id number] [place] [address] 09472- 4342 Dec, Diabetes 250.00 ; Benign essential hypertension 401.1 and Allergic rhinitis 477.9 [facility] [id number] [place] [address] 30608- 8427 Dec, [facility] [id number] [place] [address] 09503- 8063 Dec, [facility] [id number] [place] [address] 43881- 2858 Dec, Psychosis 298.9 [facility] [address] 76020- 0743 Dec, Medication side effect 995.20 and Generalized anxiety disorder 300.02 [facility] [id number] [place] [address] 62666- 4731 Dec, Acquired cognitive dysfunction 294.9 [facility] [address], [place] [address] 9976 Dec, [facility] [id number] [place] [address] 22023- 7067 Dec, Unspecified myalgia and myositis 729.1 and Generalized anxiety disorder 300.02 [facility] [address], [place] [address] 2120 Nov, [facility] [id number] [place] [address] 32511- 3310 Nov, [facility] [id number] [place] [address] 82368- 5863 Nov, [facility] [id number] [place] [address] 12444- 0252 Nov, Upper respiratory infection 465.9 and Chronic airway obstruction, not elsewhere classified 496 [facility] [id number] [place] [address] 32176- 0538 Nov, Hyponatremia 276.1 [facility] [address], [place] [address] 4463 Oct, [facility] [id number] [place] [address] 61995- 7167 Oct, [facility] [address], [place] [address] 9706 Oct, [facility] [address], [place] [address] 0515 Oct, [facility] [address], [place] [address] 8335 Oct, Hyponatremia 276.1 [facility] [id number] [place] [address] 07410- 1263 Oct, [facility] [address], [place] [address]- 4480 Oct, [facility] [id number], [place] [address] 6531 Oct, Generalized anxiety disorder 300.02 [facility] [address] 0732 Oct, Generalized anxiety disorder 300.02 and Diabetes 250.00 [facility] [address], [place] [address] 14 Aug, 2014 [facility] [id number] [place] [address] 31197- 9007 Aug, [facility] [address], [place] [address] 9762 Jul, [facility] [id number] [place] [address] 29010- 7004 Jul, [facility] [address] [address] 6983 Jun, [facility] [id number] [place] [address] 89537- 4389 Jun, [facility] [address] [address] Jun, [facility] [address] [address] 29[address] Jun, [facility] [address], [place] [address]- 9450 Jun, [facility] [address], [place] [address]- 8474 May, [facility] [id number], [place] [address]- 8444 May, [facility] [address], [place] [address]- 1880 Apr, [facility] [address], [place] [address]- 1235 Apr, [facility] [id number] [place] [address]- 0472 18 Apr, 2013 [facility] [address] [id number] [place] [address]- 2203 18 Apr, 2013 [facility] [place] [facility] [address] [id number] [place] [address]- 7511 Apr, [facility] [address] [id number] [place] [address]- 6870 Apr, [facility] [place] [facility] [address] [id number] [place] [address]- 4511 Apr, [facility] [place] [facility] [address] [id number] [place] [address]- 1456 Apr, [facility] [place] [facility] [address] [id number] [place] [address]- 6771 Feb, [facility] [address] [id number] [place] [address]- 4722 Feb, [facility] [place] [facility] [address] [id number] [place] [address]- 2303 Jan, [facility] [place] [facility] [address] [id number] [place] [address]- 6652 Jan, [facility] [place] [facility] [address] [facility] [id number] [place] [address]- 1318 Dec, [facility] [place] [facility] [address] [id number] [place] [address]- 2541 Dec, [facility] [place] [facility] [address] [id number] [place] [address]- 2540 Dec, [facility] [place] [facility] [address] [id number] [place] [address]- 3639 Nov, [facility] [place] [facility] [address] [id number] [place] [address]- 2546 Nov, [facility] [place] [facility] [address] [id number] [place] [address]- 5808 Nov, [facility] [place] [facility] [address] [id number] [place] [address]- 4944 Oct, [facility] [place] [facility] [address] [id number] [place] [address]- 1324 Oct, [facility] [place] [facility] [address] [id number] [place] [address]- 3285 Oct, [facility] [place] [facility] [address] [id number] [place] [address]- 8937 September, [facility] [place] [facility] [address] [id number] [place] [address]- 0657 September, [facility] [place] [facility] [address] [id number] [place] [address]- 8201 September, [facility] [place] [facility] [address] [id number] [place] [address]- 0994 Aug, [facility] [place] [facility] [address] [id number] [place] [address]- 5670 Aug, [facility] [place] [facility] [address] [id number] [place] [address]- 6011 Aug, [facility] [place] [facility] [address] [id number] [place] [address]- 8695 Aug, [facility] [place] [facility] [address] [id number] [place] [address]- 2115 Jul, [facility] [place] [facility] [address] [id number], [place] [address]- 0432 Jun, [facility] [place] [facility] [address] [id number] [place] [address]- 5386 14 Jun, 2011 [facility] [place] [facility] [address] [id number] [place] [address]- 0556 13 Jun, 2011 [facility] [place] [facility] [address] [id number] [place] [address]- 6836 07 Jun, 2011 [facility] [place] [facility] [address] [id number], [place] [address]- 7449 Jun, [facility] [address] [id number] [place] [address]- 2400 May, [facility] [place] [facility] [address] [id number] [place] [address]- 7806 May, [facility] [address] [facility] [id number] [place] [address]- 1006 May, [facility] [place] [facility] [address] [id number] [place] [address]- 9168 May, [facility] [address] [id number] [place] [address]- 4436 Apr, [facility] [place] [facility] [address] [id number] [place] [address]- 2125 Apr, [facility] [address] [facility] [id number], [place] [address]- 5296 Apr, [facility] [place] [facility] [address] [id number], [place] [address]- 0349 Mar, [facility] [address] [facility] [id number] [place] [address]- 6707 Mar, [facility] [place] [facility] [address] [facility] [id number] [place] [address]- 2675 Mar, [facility] [address] [id number], [place] [address]- 5418 Feb, [facility] [place] [facility] [address] [id number], [place] [address]- 7694 Feb, [facility] [place] [facility] [address] [id number], [place] [address]- 7933 Feb, [facility] [place] [facility] [address] [facility] [id number], [place] [address]- 0327 Nov, [facility] [place] [facility] [address] [facility] [id number], [place] [address]- 8668 September, [facility] [place] [facility] [id number], [place] [address]- 3826 Aug, [facility] [address], [place] [address]- 1384 14 Jul, 2010 [facility] [address], [place] [address]- 2453 May, [facility] [address], [place] [address]- 2469 Apr, [facility] [id number], [place] [address]- 9587 Apr, [facility] [address], [place] [address]- 3555 Apr, [facility] [address], [place] [address]- 4509 Apr, [facility] [address], [place] [address]- 7331 Apr, IMMUNIZATIONS No Known Immunizations SOCIAL HISTORY Never Assessed REASON FOR VISIT f/u PLAN OF CARE Activity Details Follow Up 3 Months Reason: VITAL SIGNS Height 66 in 2017-02-04 Weight 111.6 lbs 2017-02-04 Heart Rate 96 bpm 2017-02-04 Respiratory Rate 18 2017-02-04 BMI 18.01 kg/m2 2017-02-04 Blood pressure systolic 160 mmHg 2017-02-04 Blood pressure diastolic 82 mmHg 2017-02-04 MEDICATIONS Medication Instructions Dosage Frequency Start Date End Date Duration Status Dicyclomine HCl 20 mg 1 tablet 6h Active BusPIRone HCl 15 mg Orally 3 times a day 1 tablet 8h 07 Jan, 2016 Active Nexium 40 mg Orally Once a day 1 capsule 24h Dec, 30 day(s) Active Lamictal 100 mg Orally 2 times a day 1 tablet 12h September, Active Breo Ellipta 100-25 MCG/INH Inhalation Once a day 1 puff 24h Dec, 30 days Active Metformin HCl 1000 MG Orally Twice a day 1 tablet with meals 12h Aug, 30 day(s) Active Gabapentin 800 MG Orally Three times a day 1 tablet 8h 18 Jul, 2015 Active Metoprolol Tartrate 25 MG TAKE ONE TABLET BY MOUTH TWICE DAILY WITH FOOD 30 Active Lisinopril 30 MG Orally Once a day 1 tablet 24h Active Clonidine HCl 0.1 MG Orally 3 times a day 1 tablet 8h Oct, 28 days Active Glucosamine 1000 MG Orally Once a day 2 capsules 24h Active Mucinex 600 MG Orally every 12 hrs 1 tablet as needed 12h Active Multivitamin Adult - Active Baclofen 20 MG Orally Three times a day 1 tablet with food or milk 8h 30 Active Xopenex 1.25 MG/3ML Inhalation 4 times a day prn 3 ml Dec, Active Benztropine Mesylate 0.5 MG Orally twice a day Q AM and 4pm for restlessness 1 tablet Mar, Active Singulair 10 mg Orally Once a day 1 tablet in the evening 24h Oct, 30 day(s) Active Cetirizine HCl 10 mg Orally Once a day 1 tablet 24h Apr, 30 day (s) Active Flonase 50 mcg/actuation 1 spray in each nostril 24h Apr, Active Incruse Ellipta 62.5 MCG/INH Inhalation Once a day 1 puff 24h Jan, Active Lorazepam 2 MG Orally in the AM and noon and 4pm 1 tablet Jul, Active Calcium 600 + D 600-200 MG-UNIT Active Loxapine Succinate 10 mg Orally twice a day 1 capsule 12h September, Active Trazodone HCl 100 mg Orally for sleep 1 tablet at bedtime Jan, Active Levemir FlexTouch 100 UNIT/ML Subcutaneous Once a day 7 units 24h September, Active Ysqqiodytw-[id number]-Dcbmwmwf 50-325-40 MG Orally every 6 hours as needed for headaches 1 capsule as needed Jun, 30 days Active Ventolin HFA 108 (90 Base) MCG/ACT Inhalation every 4 hrs 2 puffs as needed 4h Dec, Active Ibuprofen 600 MG Orally 3 times a day 1 tablet 8h Active Viola 7.5-325 MG Orally 3 times a day 1 tablet as needed 8h Jan, 28 days Active Adderall XR 20 mg Orally Once a day for depression 1 capsule in the morning Jan, Active Zocor 10 mg Orally Once a day 1 tablet in the evening 24h 30 Active MiraLax - Orally Once a day 4 grams 24h Active Probiotic - Orally once a day 24h Active Nebulizer 1 as directed Jul, Active Insulin Pen Needle 32G X 6 MM as directed 24h Oct, Active RESULTS No Results PROCEDURES Procedure Date Ordered Result Body Site [facility] VISIT ESTABLISHED PATIENT Feb 04, 2017 INSTRUCTIONS MEDICATIONS ADMINISTERED No Known Medications [...]
--- OUTSIDE RECORDS SUMMARY | 2017-11-18 07:17 | XMS REPORT ---
Author Author JOHANN YVON Organization [facility] Address [address] [place] [address] Care Team Providers Care Voice Network Administrator Name Role Phone KYE WILLSA Unavailable PROBLEMS Type Condition ICD9-CM Code FIC68-JQ Code Onset Dates Condition Status SNOMED Code Problem GERD (gastroesophageal reflux disease) K21.9 Active 776811360 Problem Back pain M54.9 Active 768995564 Problem Diabetes E11.9 Active 98132932 Problem Hypertension I10 Active 09088344 Problem Anxiety disorder, unspecified F41.9 Active 524550560 Problem Other bipolar disorder F31.89 Active 66250099 Problem Fibromyalgia M79.7 Active 84551972 Problem Moderate persistent asthma without complication J45.40 Active 824039959 Problem Panic disorder with agoraphobia F40.01 Active 82672456 Problem Panlobular emphysema J43.1 Active 4736718 Problem Chronic obstructive pulmonary disease, unspecified J44.9 Active 28701878 Problem Akathisia G25.71 Active 445507083 Problem Fibrocystic disease of left breast N60.12 Active 00902693 Problem Migraine without aura and without status migrainosus, not intractable G43.009 Active 912962197 Problem Essential tremor G25.0 Active 154689023 Problem Schizoaffective disorder, bipolar type F25.0 Active 91271656 Problem Other chronic pain G89.29 Active 11731856 Problem Lumbago with sciatica, right side M54.41 Active 638306498 Problem Lumbago with sciatica, left side M54.42 Active 183939499 Problem Arthritis M19.90 Active 3790548 Problem Fibrocystic disease of right breast N60.11 Active 19769210 Problem Irritable bowel syndrome with both constipation and diarrhea K58.2 Active 74478185 Problem Irritable bowel syndrome with constipation K58.1 Active 327291104 Problem Bipolar affective disorder, remission status unspecified F31.9 Active 02625630 Problem Attention deficit hyperactivity disorder (ADHD), predominantly inattentive type F90.0 Active 23310061 Problem Bipolar 1 disorder, depressed, moderate F31.32 Active 44469573 Problem Chronic post-traumatic stress disorder (PTSD) F43.12 Active 870255298 Problem Bipolar 1 disorder, depressed, partial remission F31.75 Active 25113663 Problem Mild persistent asthma without complication J45.30 Active 013859626 Problem Bipolar I disorder with depression F31.9 Active 62520456 Problem Acute non-recurrent maxillary sinusitis J01.00 Active 86720669 ALLERGIES No Information ENCOUNTERS Encounter Location Date Diagnosis [place] [address] [address]- [address]666 Nov, [place] [address] 80735- 5315 Oct, [place] [address] 34067- 1007 Oct, [place] [address] 00863- 0461 Oct, [place] [address] 74464- 8793 September, Frequent headaches R51 [place] [address] 70485- 2359 September, Bilateral otitis media with effusion H65.93 ; Dizziness R42 and Essential tremor G25.0 [place] [address] 26470- 4916 September, Chronic obstructive pulmonary disease, unspecified COPD type J44.9 [place] [address] 51124- 6304 September, Chronic obstructive pulmonary disease, unspecified COPD type J44.9 [place] [address] 61346- 6013 September, Migraine without aura and without status migrainosus, not intractable G43.009 [place] [address] 94245- 2006 September, [facility] [address] [address] 56[address] September, [facility] [address] [place] [address] 51207- 0946 September, [facility] [address] [address] 6232 September, Frequent headaches R51 [facility] [address] [place] [id number] [place] [address] 01995- 2553 Aug, [facility] [address] [place] [address] 75625- 0351 Aug, Breast mass, right N63.10 [place] [address] [place] [address] 88007- 2665 Aug, Breast lump N63.0 [place] [address] [place] [id number] [place] [address] 65203- 8012 Aug, [facility] [address] [place] [address] 28829- 0638 Aug, Bipolar affective disorder, remission status unspecified F31.9 and Diabetes E11.9 [place] [address] [address]- 0746 Aug, Diabetes E11.9 ; Schizoaffective disorder, bipolar type F25.0 ; Pharyngitis due to other organism J02.8 ; Panlobular emphysema J43.1 and Irritable bowel syndrome with both constipation and diarrhea K58.2 [facility] [address] [address]- 5059 Aug, Abnormal mammogram R92.8 [place] [address] [place] [address] 65247- 8663 Aug, [facility] [address] [address]- 0276 Aug, Bipolar 1 disorder, depressed, moderate F31.32 ; Panic disorder with agoraphobia F40.01 and Chronic post-traumatic stress disorder ( PTSD) F43.12 [facility] [address] [place] [id number] [place] [address] 01969- 8667 Aug, [facility] [address] [place] [id number] [place] [address] 16714- 1260 Aug, [facility] [address] [place] [id number] [place] [address] 27813- 0823 Aug, [facility] [address] [place] [id number] [place] [address] 94825- 7804 Jul, [facility] [address] [place] [id number] [place] [address] 38061- 8584 Jul, Mild persistent asthma without complication J45.30 [facility] [address] [place] [id number] [place] [address] 21756- 3298 19 Jul, 2017 Mild persistent asthma without complication J45.30 [facility] [address] [place] [id number] [place] [address] 79525- 9038 15 Jul, 2017 Bipolar affective disorder, remission status unspecified F31.9 ; Diabetes E11.9 and Irritable bowel syndrome with constipation K58.1 [facility] [address] [place] [id number] [place] [address] 60121- 5112 Jul, [facility] [address] [place] [address] 71468- 0171 Jul, [facility] [address] [place] [id number] [place] [address] 18071- 5914 Jul, Frequent headaches R51 [facility] [address] [place] [id number] [place] [address] 63435- 7234 07 Jul, 2017 [facility] [address] [place] [id number] [place] [address] 91563- 2336 Jul, [facility] [address] [address]- 0552 Jul, [facility] [address] [place] [id number] [place] [address] 68059- 2141 05 Jul, 2017 Frequent headaches R51 ; Fibrocystic disease of left breast N60.12 ; Fibrocystic disease of right breast N60.11 and Diabetes E11.9 [place] [address] [place] [id number] [place] [address] 43000- 4923 Jul, [place] [address] 83891- 8265 Jul, [place] [address] 44624- 3768 Jun, Exudative tonsillitis J03.90 [place] [address] 36238- 6853 Jun, [place] [address] 76844- 1195 19 Jun, 2017 [place] [address] 18745- 8701 15 Jun, 2017 Mild persistent asthma without complication J45.30 ; Chronic obstructive pulmonary disease, unspecified COPD type J44.9 and Exudative tonsillitis J03.90 [place] [address] [place] [id number] [place] [address] 53616- 4008 13 Jun, 2017 Encounter for immunization Z23 [place] [address] [place] [id number] [place] [address] 43047- 9386 Jun, [place] [address] [place] [id number] [place] [address] 08106- 0430 Jun, [place] [address] 34936- 9170 Jun, [facility] [address] [place] [id number] [place] [address] 53763 -4441 06 Jun, 2017 Tonsillitis J03.90 [place] [address] 70469- 2183 05 Jun, 2017 [facility] [address] [place] [id number] [place] [address] 23616- 1185 03 Jun, 2017 Acute non-recurrent maxillary sinusitis J01.00 [facility] [address] [place] [id number] [place] [address] 68421- 1850 02 Jun, 2017 [facility] [address] [place] [id number] [place] [address] 39372- 0340 May, [facility] [address] 79949- 9435 May, [place] [address] 90967- 3829 May, GERD (gastroesophageal reflux disease) K21.9 [place] [address] 46855- 7859 May, Migraine without aura and without status migrainosus, not intractable G43.009 [place] [address] 76966- 8426 May, [place] [address] 75799- 9089 May, [place] [address] 33389- 0805 May, Panlobular emphysema J43.1 and Acute non-recurrent maxillary sinusitis J01.00 [place] [address] [place] [id number] [place] [address] 95839- 6797 May, Bipolar 1 disorder, depressed, moderate F31.32 ; Panic disorder with agoraphobia F40.01 and Akathisia G25.71 [place] [address] 71019- 0533 Apr, [place] [address] 01043- 2551 Apr, [facility] [address] 48150- 1778 13 Apr, 2017 Acute non-recurrent maxillary sinusitis J01.00 [facility] [address] [place] [id number] [place] [address] 42348- 5597 07 Apr, 2017 Panlobular emphysema J43.1 [facility] [address] [place] [id number] [place] [address] 09833- 9009 04 Apr, 2017 [facility] [address] 30818 -3040 04 Apr, 2017 Exudative tonsillitis J03.90 and Sore throat J02.9 [place] [address] 97999- 2566 17 Mar, 2017 [facility] [address] [place] [id number] [place] [address] 47585- 1927 15 Mar, 2017 Acute non-recurrent maxillary sinusitis J01.00 [facility] [address] [place] [id number] [place] [address] 60092- 0729 Mar, [facility] [address] [place] [id number] [place] [address] 54045- 7417 09 Mar, 2017 Panlobular emphysema J43.1 and Diabetes E11.9 [facility] [address] [place] [id number] [place] [address] 33983- 3701 Mar, [facility] [address] [place] [id number] [place] [address] 11975 -4417 Feb, Wheezing R06.2 and Acute recurrent pansinusitis J01.41 [facility] [address] [place] [id number] [place] [address] 11136- 3905 Feb, [facility] [address] [place] [id number] [place] [address] 64585- 6354 Feb, Acute non-recurrent maxillary sinusitis J01.00 [facility] [address] [place] [id number] [place] [address] 31398- 3171 Feb, Chronic obstructive pulmonary disease, unspecified J44.9 [facility] [address] [place] [id number] [place] [address] 56586 2542 Feb, Hypoxemia R09.02 and Chronic obstructive pulmonary disease, unspecified J44.9 [facility] [address] [place] [id number] [place] [address] 68567 2546 28 Jan, 2017 Bipolar 1 disorder, depressed, moderate F31.32 ; Panic disorder with agoraphobia F40.01 ; Chronic post-traumatic stress disorder (PTSD ) F43.12 ; Diabetes E11.9 and Moderate persistent asthma without complication J45.40 [facility] [address] [place] [id number] [place] [address] 43105 2546 22 Jan, 2017 [facility] [address] [place] [id number] [place] [address] 22726 2546 19 Jan, 2017 Acute non-recurrent maxillary sinusitis J01.00 [facility] [address] [place] [id number] [place] [address] 56871 2545 18 Jan, 2017 [facility] [address] [place] [id number] [place] [address] 63114 2546 18 Jan, 2017 [facility] [address] [place] [id number] [place] [address] 76593 2546 Jan, Moderate persistent asthma without complication J45.40 and Hypoxemia R09.02 [facility] [address] [place] [id number] [place] [address] 60252 2546 11 Jan, 2017 Moderate persistent asthma without complication J45.40 and Hypoxemia R09.02 [facility] [address] [place] [id number] [place] [address] 45257 2546 Jan, [facility] [address] [place] [id number] [place] [address] 07156 2546 Dec, Acute non-recurrent maxillary sinusitis J01.00 [facility] [address] [place] [id number] [place] [address] 55745 2546 Dec, Chronic obstructive pulmonary disease, unspecified J44.9 [facility] [address] [place] [address]- 4021 Dec, [facility] [address] [place] [id number] [place] [address] 99078- 1634 Dec, Mild persistent asthma without complication J45.30 and Other chronic pain G89.29 [facility] [address] [place] [address] 17861- 0345 Nov, [facility] [address] [place] [id number] [place] [address] 31636- 7003 Nov, Acute non-recurrent maxillary sinusitis J01.00 [facility] [address] [place] [id number] [place] [address] 46629- 4256 Nov, [facility] [address] [place] [id number] [place] [address] 72155- 4734 Nov, [facility] [address] [place] [id number] [place] [address] 43753- 4333 Oct, [facility] [address] [place] [id number] [place] [address] 54350- 0894 Oct, Bipolar 1 disorder, depressed, partial remission F31.75 ; Panic disorder with agoraphobia F40.01 and Chronic post-traumatic stress disorder (PTSD) F43.12 [facility] [address] [address]- 6546 Oct, Acute non-recurrent maxillary sinusitis J01.00 [facility] [address] [place] [address] 12923- 9329 Oct, [facility] [address] [place] [address] 14005- 1950 Oct, Diabetes E11.9 [facility] [address] [place] [id number] [place] [address] 39525- 1957 September, Diabetes E11.9 [facility] [address] [address]- 2714 September, Diabetes E11.9 and Sinus tachycardia R00.0 [facility] [address] [address]- 6287 September, [facility] [address] [place] [id number] [place] [address] 56261- 2244 September, [facility] [address] [place] [id number] [place] [address] 23991- 4300 Aug, Diabetes E11.9 and Lumbago with sciatica, right side M54.41 [facility] [address] [place] [id number] [place] [address] 59530- 7260 Aug, [facility] [address] [place] [id number] [place] [address] 04576- 5831 Jul, Bipolar 1 disorder, depressed, moderate F31.32 ; Panic disorder with agoraphobia F40.01 and Chronic post-traumatic stress disorder ( PTSD) F43.12 [facility] [address] [place] [id number] [place] [address] 36925- 9970 Jul, Sore throat J02.9 [facility] [address] [place] [id number] [place] [address] 59832- 3890 Jul, [facility] [address] [place] [id number] [place] [address] 08870- 5966 Jul, [facility] [address] [place] [address] 87688- 2991 Jul, [facility] [address] [place] [id number] [place] [address] 40072- 8056 Jul, [facility] [address] [place] [address] 09379- 9740 Jul, Sore throat J02.9 and Pharyngitis, unspecified etiology J02.9 [facility] [address] [address]- 9282 Jun, [facility] [address] [place] [address] 90773- 3742 Jun, Diabetes E11.9 [facility] [address] [place] [id number] [address]- 0849 Jun, [facility] [address] [address]- 6386 Jun, [facility] [address] [place] [id number] [address]- 7756 Jun, [facility] [address] [place] [address] 59289- 0866 Jun, [facility] [address] [place] [id number] [place] [address]- 5496 Jun, [facility] [address] [address]- 5989 Jun, [facility] [address] [address]- 1853 Jun, [facility] [address] [address]- 9209 Jun, [facility] [address] [address]- 1205 May, Diabetes E11.9 ; Other chronic pain G89.29 ; Acute recurrent maxillary sinusitis J01.01 ; Bipolar I disorder with depression F31.9 and Anxiety disorder, unspecified F41.9 [facility] [address] [address]- 3961 May, [facility] [address] [address]- 5092 May, Diabetes E11.9 ; Bipolar I disorder with depression F31.9 ; Anxiety disorder, unspecified F41.9 ; Other chronic pain G89.29 and Acute recurrent maxillary sinusitis J01.01 [facility] [address] [address]- 8277 May, [facility] [address] [address]- 7123 May, Attention deficit hyperactivity disorder (ADHD), predominantly inattentive type F90.0 [facility] [address] [place] [id number] [place] [address] 40020- 2040 May, [facility] [address] [place] [id number] [place] [address] 20124- 0649 Apr, Attention deficit hyperactivity disorder (ADHD), predominantly inattentive type F90.0 and Non-seasonal allergic rhinitis due to other allergic trigger J30.89 [place] [address] [place] [id number] [place] [address] 67659- 5250 Apr, Bipolar 1 disorder, depressed, moderate F31.32 ; Panic disorder with agoraphobia F40.01 and Chronic post-traumatic stress disorder ( PTSD) F43.12 [place] [address] [place] [id number] [place] [address] 23179- 9625 Apr, Dental examination Z01.20 [place] [address] [place] [id number] [place] [address] 23693- 1993 Mar, [place] [address] [place] [id number] [place] [address] 14233- 3782 Mar, [place] [address] [place] [id number] [place] [address] 91922- 5461 Mar, Bipolar I disorder with depression F31.9 and Anxiety disorder, unspecified F41.9 [place] [address] [place] [id number] [place] [address] 63493- 4060 08 Mar, 2016 Panic disorder with agoraphobia F40.01 ; Bipolar 1 disorder , depressed, moderate F31.32 and Chronic post-traumatic stress disorder (PTSD) F43.12 [place] [address] [place] [id number] [place] [address] 07404- 2683 04 Mar, 2016 [place] [address] [place] [id number] [place] [address] 89582- 8895 Mar, Dental caries K02.9 [place] [address] [place] [id number] [place] [address] 72804- 6451 Feb, Lumbago with sciatica, left side M54.42 ; Lumbago with sciatica, right side M54.41 and Other chronic pain G89.29 [facility] [address] [place] [id number] [place] [address] 11303- 5302 17 Feb, 2016 [facility] [address] [place] [id number] [place] [address] 63463- 2143 Feb, [facility] [address] 67889- 5537 Feb, Bipolar I disorder with depression F31.9 ; PTSD (post- traumatic stress disorder) F43.10 and Mood disorder F39 [place] [address] [place] [id number] [place] [address] 81310- 6435 Feb, [place] [address] [place] [id number] [place] [address] 74153- 3724 Feb, Dental examination Z01.20 [place] [address] [place] [id number] [place] [address] 71143- 8061 07 Feb, 2016 [facility] [address] [place] [id number] [place] [address] 41361 -1884 Feb, Acute bronchitis, unspecified organism J20.9 [place] [address] [place] [id number] [place] [address] 51825- 4933 Jan, Mood disorder F39 ; Migraine without aura and without status migrainosus, not intractable G43.009 ; Irritable bowel syndrome, unspecified type K58.9 ; Diabetes E11.9 and Encounter for immunization Z23 [place] [address] [place] [id number] [place] [address] 03675- 6218 15 Jan, 2016 [place] [address] [place] [id number] [place] [address] 46086- 6422 06 Jan, 2016 [facility] [address] [place] [id number] [place] [address] 38709- 9998 Jan, [place] [address] [address]- 6364 Jan, [facility] [address] [id number] [place] [address] 13332- 7667 Jan, [facility] [address] [id number] [place] [address] 31675- 4291 Dec, Bipolar I disorder with depression F31.9 ; PTSD (post- traumatic stress disorder) F43.10 and Panic disorder with agoraphobia F40.01 [facility] [address] [address]- 4180 Dec, Chronic obstructive pulmonary disease, unspecified COPD type J44.9 ; Tremor R25.1 and Anxiety F41.9 [facility] [address] [id number] [place] [address] 31333- 0909 Dec, [place] [address] [place] [id number] [place] [address] 01999- 3356 Nov, Tremors of nervous system R25.1 and Cramping of feet R25.2 [facility] [address] [address]- 6213 Nov, [facility] [address] [place] [id number] [place] [phone] Nov, [facility] [id number] [address] Oct, Chronic obstructive pulmonary disease, unspecified J44.9 [facility] [id number] [address] Oct, [facility] [id number] [place] [phone] Oct, Tremor R25.1 [facility] [id number] [address] Oct, Bipolar I disorder with depression F31.9 ; Diabetes E11.9 ; PTSD (post-traumatic stress disorder) F43.10 and Panic disorder with agoraphobia F40.01 [facility] [id number] [address] Oct, Mood disorder F39 [facility] [id number] [place] [phone] September, [facility] [id number] [place] [phone] September, Diabetes E11.9 ; Bipolar I disorder with depression F31.9 ; PTSD (post-traumatic stress disorder) F43.10 and Panic disorder with agoraphobia F40.01 [place] [id number] [place] [phone]- 6934 September, Mood disorder F39 ; Schizoaffective disorder, unspecified type F25.9 ; Arthritis M19.90 ; Tremor R25.1 ; Acute non-recurrent frontal sinusitis J01.10 and Blood in stool K92.1 [facility] [id number] [place] [address] 00251- 9818 September, [facility] [id number] [place] [address] 63848- 1989 September, Chronic obstructive pulmonary disease, unspecified J44.9 [facility] [address] [address] 8474 September, Diabetes E11.9 [facility] [address] [address] Aug, Other bipolar disorder F31.89 and Anxiety disorder, unspecified F41.9 [facility] [address] [address] 7[address] Aug, [facility] [id number] [place] [address] 75899- 5350 Aug, Diabetes E11.9 [facility] [address] [address] 0201 Aug, [facility] [id number] [place] [address] 38731- 4676 14 Aug, 2015 Diabetes E11.9 ; Fatigue R53.83 and Dizziness R42 [facility] [id number] [place] [address] 96778- 6116 13 Aug, 2015 Other bipolar disorder F31.89 [facility] [id number] [place] [address] 27505- 4486 07 Aug, 2015 Generalized anxiety disorder F41.1 [facility] [id number] [place] [address] 46024- 7514 07 Aug, 2015 Other bipolar disorder F31.89 and Anxiety disorder, unspecified F41.9 [facility] [id number] [place] [address] 30109- 8222 Aug, [facility] [id number] [place] [address] 50250- 5634 Jul, [facility] [id number] [place] [address] 45726- 6939 Jul, [facility] [id number] [place] [address] 08335- 7984 Jul, Bronchitis J40 [facility] [id number] [place] [address] 36496- 3625 Jul, Anxiety disorder F41.9 [facility] [id number] [place] [address] 37065- 7385 Jul, Other bipolar disorder F31.89 and Anxiety disorder, unspecified F41.9 [facility] [id number] [place] [address] 46715- 8857 18 Jul, 2015 Other bipolar disorder F31.89 and Fibromyalgia M79.7 [facility] [id number] [place] [address] 67438- 2374 Jul, [facility] [id number] [place] [address] 39313- 7337 Jul, [facility] [id number] [place] [address] 94203- 5268 Jul, [facility] [id number] [place] [address] 70429- 1173 Jul, Other bipolar disorder F31.89 and Anxiety disorder, unspecified F41.9 [facility] [id number] [place] [address] 93948- 6039 Jun, GERD (gastroesophageal reflux disease) K21.9 [facility] [id number] [place] [address] 87301- 9106 Jun, [facility] [id number] [place] [address] 06170- 6806 May, [facility] [id number] [place] [address] 86332- 8670 May, Diabetes E11.9 ; Back pain M54.9 ; GERD (gastroesophageal reflux disease) K21.9 ; Hypertension I10 and Peripheral neuropathy G62.9 [facility] [id number] [place] [address] 12802- 7041 Mar, [facility] [id number] [place] [address] 82687- 3676 Mar, [facility] [id number] [place] [address] 59999- 7182 Mar, Acute sinusitis J01.90 and Otitis media, left H66.92 [facility] [id number] [place] [address] 49270- 7051 Feb, [facility] [id number] [place] [address] 94554- 7183 Feb, [facility] [id number] [place] [address] 19518- 8294 15 Feb, 2015 [facility] [id number] [place] [address] 71835- 6314 Feb, [facility] [id number] [place] [address] 19290- 3913 Jan, [facility] [id number] [place] [address] 67455- 9872 Jan, Diabetes 250.00 and Back pain 724.5 [facility] [id number] [place] [address] 87133- 1434 Jan, [facility] [id number] [place] [address] 18180- 9968 Dec, Diabetes 250.00 ; Benign essential hypertension 401.1 and Allergic rhinitis 477.9 [facility] [id number] [place] [address] 83018- 5005 Dec, [facility] [id number] [place] [address] 38420- 3856 Dec, [facility] [id number] [place] [address] 75977- 9607 Dec, Psychosis 298.9 [facility] [id number] [place] [address] 83469- 3786 Dec, Medication side effect 995.20 and Generalized anxiety disorder 300.02 [facility] [id number] [place] [address] 99745- 5073 Dec, Acquired cognitive dysfunction 294.9 [facility] [id number] [place] [address] 03280- 0545 Dec, [facility] [id number] [place] [address] 51417- 7292 Dec, Unspecified myalgia and myositis 729.1 and Generalized anxiety disorder 300.02 [facility] [id number] [place] [address] 86293- 5626 Nov, [facility] [id number] [place] [address] 64645- 7624 Nov, [facility] [id number] [place] [address] 76498- 2716 Nov, [facility] [address] [address]- 7319 Nov, Upper respiratory infection 465.9 and Chronic airway obstruction, not elsewhere classified 496 [facility] [id number] [address]- 1914 Nov, Hyponatremia 276.1 [facility] [id number] [place] [address] 52756- 0173 Oct, [facility] [id number] [place] [address] 83148- 1333 Oct, [facility] [id number] [place] [address] 99004- 3527 Oct, [facility] [id number] [place] [address] 25427- 3978 Oct, [facility] [id number] [place] [address] 42738- 3338 Oct, Hyponatremia 276.1 [facility] [id number] [place] [address] 51370- 1011 Oct, [facility] [id number] [place] [address] 37470- 3833 Oct, [facility] [address] [address]- 8279 Oct, Generalized anxiety disorder 300.02 [facility] [id number] [place] [address] 66238- 5123 Oct, Generalized anxiety disorder 300.02 and Diabetes 250.00 [facility] [id number] [address]- 3224 Aug, [facility] [id number] [place] [address] 67228- 4283 Aug, [facility] [address] [address]- 6654 Jul, [facility] [place] [facility] [address] [id number] [place] [address]- 5373 Jul, [facility] [place] [facility] [address] [id number] [place] [address]- 6176 Jun, [facility] [place] [facility] [address] [id number] [place] [address]- 9480 Jun, [facility] [place] [facility] [address] [id number] [place] [address]- 9645 Jun, [facility] [place] [facility] [address] [id number] [place] [address]- 2903 Jun, [facility] [place] [facility] [address] [id number] [place] [address]- 6794 Jun, [facility] [place] [facility] [address] [facility] [id number] [place] [address]- 3046 May, [facility] [place] [facility] [address] [id number] [place] [address]- 8408 May, [facility] [place] [facility] [address] [id number] [place] [address]- 6112 Apr, [facility] [place] [facility] [address] [facility] [id number] [place] [address]- 2248 Apr, [facility] [place] [facility] [address] [facility] [id number] [place] [address]- 2007 Apr, [facility] [place] [facility] [address] [id number] [place] [address]- 8280 18 Apr, 2013 [facility] [place] [facility] [address] [id number] [place] [address]- 2172 Apr, [facility] [place] [facility] [address] [id number] [place] [address]- 1503 Apr, [facility] [place] [facility] [address] [id number] [place] [address]- 7211 Apr, [facility] [place] [facility] [address] [id number] [place] [address]- 5099 Apr, [facility] [place] [facility] [address] [id number] [place] [address]- 7096 Feb, [facility] [place] [facility] [address] [id number] [place] [address]- 2808 Feb, [facility] [place] [facility] [address] [id number] [place] [address]- 5336 Jan, [facility] [place] [facility] [address] [id number] [place] [address]- 0919 Jan, [facility] [place] [facility] [address] [id number] [place] [address]- 1160 Dec, [facility] [place] [facility] [address] [id number] [place] [address]- 3181 Dec, [facility] [place] [facility] [address] [id number] [place] [address]- 0758 Dec, [facility] [place] [facility] [address] [id number] [place] [address]- 1375 Nov, [facility] [place] [facility] [address] [id number] [place] [address]- 4558 Nov, [facility] [place] [facility] [address] [id number] [place] [address]- 1908 Nov, [facility] [place] [facility] [address] [id number] [place] [address]- 5618 Oct, [facility] [place] [facility] [address] [id number] [place] [address]- 2068 Oct, [facility] [place] [facility] [address] [id number] [place] [address]- 2951 Oct, [facility] [place] [facility] [address] [id number] [place] [address]- 5102 September, [facility] [place] [facility] [address] [id number] [place] [address]- 6205 September, [facility] [place] [facility] [address] [id number] [place] [address]- 7126 September, [facility] [address] [id number] [place] [address]- 7425 Aug, [facility] [place] [facility] [address] [id number] [place] [address]- 3076 Aug, [facility] [address] [id number] [place] [address]- 7921 Aug, [facility] [address] [id number] [place] [address]- 9799 16 Aug, 2011 [facility] [address] [id number] [place] [address]- 9262 Jul, [facility] [address] [id number] [place] [address]- 8241 Jun, [facility] [address] [id number] [place] [address]- 2591 14 Jun, 2011 [facility] [address] [id number] [place] [address]- 8673 13 Jun, 2011 [facility] [address] [id number] [place] [address]- 4254 07 Jun, 2011 [facility] [address] [id number] [place] [address]- 1969 Jun, [facility] [address] [id number] [place] [address]- 7896 May, [facility] [address] [id number] [place] [address]- 7207 May, [facility] [place] [facility] [address] [id number] [place] [address]- 0026 May, [facility] [place] [facility] [address] [id number] [place] [address]- 2846 04 May, 2011 [facility] [place] [facility] [address] [id number] [place] [address]- 2415 20 Apr, 2011 [facility] [place] [facility] [address] [id number] [place] [address]- 4953 13 Apr, 2011 [facility] [place] [facility] [address] [id number] [place] [address]- 6149 05 Apr, 2011 [facility] [place] [facility] [address] [id number] [place] [address]- 8890 Mar, [facility] [place] [facility] [address] [id number] [place] [address]- 3693 Mar, [facility] [place] [facility] [address] [id number] [place] [address]- 6881 Mar, [facility] [place] [facility] [address] [id number] [place] [address]- 2307 13 Feb, 2011 [facility] [place] [facility] [address] [id number] [place] [address]- 0436 13 Feb, 2011 [facility] [place] [facility] [address] [id number] [place] [address]- 1433 13 Feb, 2011 [facility] [place] [facility] [address] [id number] [place] [address]- 0185 Nov, [facility] [place] [facility] [address] [id number] [place] [address]- 3701 September, [facility] [place] [facility] [address] [id number] [address]- 4937 12 Aug, 2010 [facility] [place] [facility] [address] [id number] [address]- 0731 14 Jul, 2010 [facility] [place] [facility] [address] [id number] [place] [address]- 9200 May, [facility] [place] [facility] [address] [id number] [place] [address]- 0310 31 Apr, 2010 [facility] [place] [facility] [address] [id number] [place] [address]- 8394 30 Apr, 2010 [facility] [place] [facility] [address] [facility] [id number] [place] [address]- 3696 Apr, [facility] [address] [facility] [id number] [place] [address]- 5319 Apr, [facility] [address] [facility] [id number] [place] [address]- 4791 Apr, IMMUNIZATIONS No Known Immunizations SOCIAL HISTORY Never Assessed REASON FOR VISIT adderall 04/27/2017 PLAN OF CARE VITAL SIGNS MEDICATIONS Medication Instructions Dosage Frequency Start Date End Date Duration Status Adderall XR 20 mg Orally Once a day for depression 1 capsule in the morning Apr, 28 days Active RESULTS No Results [...]
--- OUTSIDE RECORDS SUMMARY | 2017-11-18 07:18 | XMS REPORT ---
Author Author WHIT GANDHI [facility] Address [address] [place] [address] Care Team Providers Care Wildlife [employer]ation Research Ecologist Name Role Phone WHIT GANDHI Unavailable PROBLEMS Type Condition ICD9-CM Code AFI01-TX Code Onset Dates Condition Status SNOMED Code Problem Back pain M54.9 Active 677351013 Problem GERD (gastroesophageal reflux disease) K21.9 Active 935485240 Problem Diabetes E11.9 Active 23075066 Problem Hypertension I10 Active 20202364 Problem Acute non-recurrent maxillary sinusitis J01.00 Active 06711607 Problem Anxiety disorder, unspecified F41.9 Active 910263843 Problem Bipolar 1 disorder, depressed, partial remission F31.75 Active 00254716 Problem Other bipolar disorder F31.89 Active 73545061 Problem Mild persistent asthma without complication J45.30 Active 152472533 Problem Panlobular emphysema J43.1 Active 8143146 Problem Moderate persistent asthma without complication J45.40 Active 244201546 Problem Irritable bowel syndrome with constipation K58.1 Active 805433109 Problem Arthritis M19.90 Active 5151735 Problem Chronic obstructive pulmonary disease, unspecified J44.9 Active 94785853 Problem Panic disorder with agoraphobia F40.01 Active 99909316 Problem Fibromyalgia M79.7 Active 00968734 Problem Migraine without aura and without status migrainosus, not intractable G43.009 Active 066583840 Problem Akathisia G25.71 Active 967956734 Problem Fibrocystic disease of right breast N60.11 Active 65244906 Problem Fibrocystic disease of left breast N60.12 Active 99448335 Problem Lumbago with sciatica, right side M54.41 Active 528972510 Problem Bipolar 1 disorder, depressed, moderate F31.32 Active 59356835 Problem Other chronic pain G89.29 Active 79278125 Problem Lumbago with sciatica, left side M54.42 Active 253105587 Problem Attention deficit hyperactivity disorder (ADHD), predominantly inattentive type F90.0 Active 66585442 Problem Bipolar I disorder with depression F31.9 Active 41148190 Problem Chronic post-traumatic stress disorder (PTSD) F43.12 Active 378910914 Problem Bipolar affective disorder, remission status unspecified F31.9 Active [id number] ALLERGIES No Information ENCOUNTERS Encounter Location Date Diagnosis [facility] [id number] [place] [address] 96156- 6527 18 Aug, 2017 [facility] [address] 30623- 4999 Aug, [facility] [id number] [place] [address] 16566- 4897 Jul, [place] [address] 32719- 5451 Jul, Mild persistent asthma without complication J45.30 [place] [address] 98993- 3703 19 Jul, 2017 Mild persistent asthma without complication J45.30 [facility] [id number] [place] [address] 58968- 8943 15 Jul, 2017 Bipolar affective disorder, remission status unspecified F31.9 ; Diabetes E11.9 and Irritable bowel syndrome with constipation K58.1 [facility] [id number] [place] [address] 48751- 6793 13 Jul, 2017 [facility] [id number] [place] [address] 40345- 0776 Jul, [facility] [id number] [place] [address] 66160- 7137 Jul, Frequent headaches R51 [facility] [address] 74258- 0398 07 Jul, 2017 [place] [id number] [place] [address] 67405- 5108 Jul, [facility] [address] 81667- 6151 Jul, [place] [id number] [place] [address] 67425- 4314 Jul, Frequent headaches R51 ; Fibrocystic disease of left breast N60.12 ; Fibrocystic disease of right breast N60.11 and Diabetes E11.9 [place] [id number] [place] [address] 66572- 3550 Jul, [place] [address] 17129- 3273 Jul, [place] [id number] [place] [address] 49682- 0119 21 Jun, 2017 Exudative tonsillitis J03.90 [place] [id number] [place] [address] 44692- 9690 20 Jun, 2017 [place] [id number] [place] [address] 09661- 3169 19 Jun, 2017 [place] [id number] [place] [address] 52491- 1623 15 Jun, 2017 Mild persistent asthma without complication J45.30 ; Chronic obstructive pulmonary disease, unspecified COPD type J44.9 and Exudative tonsillitis J03.90 [facility] [id number] [place] [address] 58386- 0165 13 Jun, 2017 Encounter for immunization Z23 [place] [address] 00500- 4578 Jun, [place] [id number] [place] [address] 92204- 3732 Jun, [place] [id number] [place] [address] 98880- 9641 09 Jun, [address] [facility] [id number] [place] [address] 19920 -2188 06 Jun, 2017 Tonsillitis J03.90 [place] [id number] [place] [address] 31841- 4633 05 Jun, 2017 [facility] [id number] [place] [address] 12373- 4820 03 Jun, 2017 Acute non-recurrent maxillary sinusitis J01.00 [facility] [id number] [place] [address] 25684- 7382 02 Jun, 2017 [facility] [address] 91295- 3824 May, [facility] [address] 13377- 1578 May, [place] [address] 97866- 5291 May, GERD (gastroesophageal reflux disease) K21.9 [place] [address] 99534- 8332 May, Migraine without aura and without status migrainosus, not intractable G43.009 [facility] [id number] [place] [address] 56268- 2227 May, [place] [address] 90801- 1640 May, [place] [id number] [place] [address] 22830- 1785 May, Panlobular emphysema J43.1 and Acute non-recurrent maxillary sinusitis J01.00 [place] [id number] [place] [address] 30970- 3622 May, Bipolar 1 disorder, depressed, moderate F31.32 ; Panic disorder with agoraphobia F40.01 and Akathisia G25.71 [place] [id number] [place] [address] 19557- 1373 Apr, [place] [id number] [place] [address] 19397- 9973 Apr, [facility] [id number] [place] [address] 52509- 1380 13 Apr, 2017 Acute non-recurrent maxillary sinusitis J01.00 [facility] [id number] [place] [address] 54458- 5782 07 Apr, 2017 Panlobular emphysema J43.1 [facility] [address] 61382- 0999 04 Apr, 2017 [facility] [address] 74567 -7756 04 Apr, 2017 Exudative tonsillitis J03.90 and Sore throat J02.9 [place] [address] 18101- 4334 Mar, [facility] [address] 41330- 9099 15 Mar, 2017 Acute non-recurrent maxillary sinusitis J01.00 [facility] [id number] [place] [address] 64250- 7021 Mar, [place] [address] 07076- 3872 Mar, Panlobular emphysema J43.1 and Diabetes E11.9 [facility] [id number] [place] [address] 19412- 0181 Mar, [facility] [id number] [place] [address] 63536 -4816 Feb, Wheezing R06.2 and Acute recurrent pansinusitis J01.41 [place] [id number] [place] [address] 54551- 3712 Feb, [place] [id number] [place] [address] 05561- 7186 Feb, Acute non-recurrent maxillary sinusitis J01.00 [facility] [id number] [place] [address] 57206- 5091 Feb, Chronic obstructive pulmonary disease, unspecified J44.9 [facility] [id number] [place] [address] 62261 2546 Feb, Hypoxemia R09.02 and Chronic obstructive pulmonary disease, unspecified J44.9 [facility] [id number] [place] [address] 26145 2546 28 Jan, 2017 Bipolar 1 disorder, depressed, moderate F31.32 ; Panic disorder with agoraphobia F40.01 ; Chronic post-traumatic stress disorder (PTSD ) F43.12 ; Diabetes E11.9 and Moderate persistent asthma without complication J45.40 [facility] [id number] [place] [address] 77529 2546 22 Jan, 2017 [facility] [id number] [place] [address] 72576 2546 19 Jan, 2017 Acute non-recurrent maxillary sinusitis J01.00 [facility] [id number] [place] [address] 14199 2546 18 Jan, 2017 [facility] [id number] [place] [address] 32720 2546 Jan, [facility] [id number] [place] [address] 81513 2546 Jan, Moderate persistent asthma without complication J45.40 and Hypoxemia R09.02 [facility] [id number] [place] [address] 21158 2546 Jan, Moderate persistent asthma without complication J45.40 and Hypoxemia R09.02 [facility] [id number] [place] [address] 44635 2546 Jan, [facility] [id number] [place] [address] 09962 2546 Dec, Acute non-recurrent maxillary sinusitis J01.00 [facility] [id number] [place] [address] 24271 2546 Dec, Chronic obstructive pulmonary disease, unspecified J44.9 [place] [address] [address]- 4873 Dec, [facility] [id number] [place] [address] 08495- 5596 Dec, Mild persistent asthma without complication J45.30 and Other chronic pain G89.29 [facility] [id number] [place] [address] 22386- 7776 Nov, [facility] [id number] [place] [address] 15450- 6331 Nov, Acute non-recurrent maxillary sinusitis J01.00 [facility] [id number] [place] [address] 30978- 0026 Nov, [facility] [id number] [place] [address] 03763- 7112 Nov, [facility] [id number] [place] [address] 74169- 9320 Oct, [facility] [id number] [place] [address] 69830- 7535 Oct, Bipolar 1 disorder, depressed, partial remission F31.75 ; Panic disorder with agoraphobia F40.01 and Chronic post-traumatic stress disorder (PTSD) F43.12 [facility] [id number] [place] [address] 41318- 2131 Oct, Acute non-recurrent maxillary sinusitis J01.00 [facility] [address] [address]- 4910 Oct, [facility] [id number] [place] [address] 52619- 7463 Oct, Diabetes E11.9 [facility] [id number] [place] [address] 78547- 3266 September, Diabetes E11.9 [facility] [id number] [place] [address] 69078- 7999 September, Diabetes E11.9 and Sinus tachycardia R00.0 [facility] [address] [address]- 0195 September, [facility] [id number] [place] [address] 71568- 8051 September, [facility] [id number] [place] [address] 18066- 5555 Aug, Diabetes E11.9 and Lumbago with sciatica, right side M54.41 [facility] [id number] [place] [address] 05108- 3214 Aug, [facility] [id number] [place] [address] 64872- 1653 Jul, Bipolar 1 disorder, depressed, moderate F31.32 ; Panic disorder with agoraphobia F40.01 and Chronic post-traumatic stress disorder ( PTSD) F43.12 [facility] [id number] [place] [address] 47484- 7764 Jul, Sore throat J02.9 [facility] [id number] [place] [address] 89895- 1628 Jul, [facility] [id number] [place] [address] 81014- 0163 Jul, [facility] [id number] [place] [address] 12399- 4548 Jul, [facility] [id number] [place] [address] 75280- 0730 Jul, [facility] [id number] [place] [address] 16025- 4786 Jul, Sore throat J02.9 and Pharyngitis, unspecified etiology J02.9 [facility] [id number] [place] [address] 76392- 4343 Jun, [facility] [id number] [place] [address] 34582- 6485 Jun, Diabetes E11.9 [facility] [address] [address]- 7677 Jun, [facility] [id number] [address]- 8596 Jun, [facility] [address] [address]- 5776 Jun, [facility] [id number] [place] [address] 76848- 9647 Jun, [facility] [id number] [place] [address] 13481- 1549 Jun, [facility] [address] [address]- 9092 Jun, [facility] [address] [address]- 1983 Jun, [facility] [address] [address]- 1172 Jun, [facility] [address] [address]- 0697 May, Diabetes E11.9 ; Other chronic pain G89.29 ; Acute recurrent maxillary sinusitis J01.01 ; Bipolar I disorder with depression F31.9 and Anxiety disorder, unspecified F41.9 [facility] [address] [address]- 4809 May, [facility] [address] [address]- 1967 May, Diabetes E11.9 ; Bipolar I disorder with depression F31.9 ; Anxiety disorder, unspecified F41.9 ; Other chronic pain G89.29 and Acute recurrent maxillary sinusitis J01.01 [facility] [address] [address]- 5694 May, [facility] [id number] [place] [address] 45775- 7311 May, Attention deficit hyperactivity disorder (ADHD), predominantly inattentive type F90.0 [place] [id number] [place] [address] 40186- 1092 May, [place] [id number] [place] [address] 09274- 1924 Apr, Attention deficit hyperactivity disorder (ADHD), predominantly inattentive type F90.0 and Non-seasonal allergic rhinitis due to other allergic trigger J30.89 [place] [id number] [place] [address] 23386- 7349 Apr, Bipolar 1 disorder, depressed, moderate F31.32 ; Panic disorder with agoraphobia F40.01 and Chronic post-traumatic stress disorder ( PTSD) F43.12 [place] [id number] [place] [address] 77375- 6063 Apr, Dental examination Z01.20 [place] [id number] [place] [address] 78361- 1864 Mar, [place] [id number] [place] [address] 81822- 1744 Mar, [place] [id number] [place] [address] 53150- 4623 Mar, Bipolar I disorder with depression F31.9 and Anxiety disorder, unspecified F41.9 [place] [id number] [place] [address] 53054- 1162 08 Mar, 2016 Panic disorder with agoraphobia F40.01 ; Bipolar 1 disorder , depressed, moderate F31.32 and Chronic post-traumatic stress disorder (PTSD) F43.12 [place] [id number] [place] [address] 84863- 4122 04 Mar, 2016 [place] [id number] [place] [address] 36440- 9180 Mar, Dental caries K02.9 [place] [id number] [place] [address] 26892- 3297 Feb, Lumbago with sciatica, left side M54.42 ; Lumbago with sciatica, right side M54.41 and Other chronic pain G89.29 [facility] [id number] [place] [address] 34563- 0532 17 Feb, 2016 [place] [address] 31642- 2597 Feb, [place] [address] 57664- 6197 Feb, Bipolar I disorder with depression F31.9 ; PTSD (post- traumatic stress disorder) F43.10 and Mood disorder F39 [place] [address] 16813- 5201 Feb, [place] [address] 05217- 2304 Feb, Dental examination Z01.20 [place] [address] 19460- 2695 Feb, [facility] [address] 25162 -7066 Feb, Acute bronchitis, unspecified organism J20.9 [place] [id number] [place] [address] 32216- 0271 Jan, Mood disorder F39 ; Migraine without aura and without status migrainosus, not intractable G43.009 ; Irritable bowel syndrome, unspecified type K58.9 ; Diabetes E11.9 and Encounter for immunization Z23 [place] [address] 23598- 6757 15 Jan, 2016 [place] [id number] [place] [address] 34580- 4169 Jan, [facility] [address] 46139- 9820 Jan, [facility] [address] [address]- 0832 Jan, [facility] [id number] [place] [address] 64676- 3536 Jan, [facility] [id number] [place] [address] 78800- 8103 Dec, Bipolar I disorder with depression F31.9 ; PTSD (post- traumatic stress disorder) F43.10 and Panic disorder with agoraphobia F40.01 [facility] [id number] [place] [address] 24183- 7335 Dec, Chronic obstructive pulmonary disease, unspecified COPD type J44.9 ; Tremor R25.1 and Anxiety F41.9 [facility] [id number] [place] [address] 84342- 4562 Dec, [facility] [id number] [place] [address] 54283- 8412 Nov, Tremors of nervous system R25.1 and Cramping of feet R25.2 [facility] [id number] [place] [address] 63530- 5901 Nov, [facility] [id number] [place] [address] 33825- 2815 Nov, [facility] [id number] [place] [address] 42268- 6018 Oct, Chronic obstructive pulmonary disease, unspecified J44.9 [facility] [address] [place] [address] 91142- 2150 Oct, [facility] [id number] [place] [address] 55161- 1016 Oct, Tremor R25.1 [facility] [id number] [place] [address] 23404- 0471 Oct, Bipolar I disorder with depression F31.9 ; Diabetes E11.9 ; PTSD (post-traumatic stress disorder) F43.10 and Panic disorder with agoraphobia F40.01 [place] [id number] [place] [address] 56908- 2683 Oct, Mood disorder F39 [place] [id number] [place] [address] 89624- 4361 September, [place] [id number] [place] [address] 61594- 5114 September, Diabetes E11.9 ; Bipolar I disorder with depression F31.9 ; PTSD (post-traumatic stress disorder) F43.10 and Panic disorder with agoraphobia F40.01 [place] [id number] [place] [address] 03092- 5922 September, Mood disorder F39 ; Schizoaffective disorder, unspecified type F25.9 ; Arthritis M19.90 ; Tremor R25.1 ; Acute non-recurrent frontal sinusitis J01.10 and Blood in stool K92.1 [place] [id number] [place] [address] 10495- 0499 September, [place] [id number] [place] [address] 82158- 9625 September, Chronic obstructive pulmonary disease, unspecified J44.9 [place] [id number] [place] [address] 39968- 5625 September, Diabetes E11.9 [place] [id number] [place] [address] 80983- 8136 Aug, Other bipolar disorder F31.89 and Anxiety disorder, unspecified F41.9 [place] [id number] [place] [address] 85013- 9657 Aug, [place] [id number] [place] [address] 91672- 0290 Aug, Diabetes E11.9 [place] [id number] [place] [address] 65165- 4720 Aug, [facility] [id number] [place] [address] 63658- 3358 14 Aug, 2015 Diabetes E11.9 ; Fatigue R53.83 and Dizziness R42 [facility] [id number] [place] [address] 89821- 5408 Aug, Other bipolar disorder F31.89 [facility] [id number] [place] [address] 08905- 9066 Aug, Generalized anxiety disorder F41.1 [facility] [id number] [place] [address] 71208 2547 Aug, Other bipolar disorder F31.89 and Anxiety disorder, unspecified F41.9 [facility] [id number] [place] [address] [phone] Aug, [facility] [id number] [place] [address] [phone] Jul, [facility] [id number] [place] [address] [phone] Jul, 2015 [facility] [id number] [place] [address] [phone] Jul, Bronchitis J40 [facility] [id number] [place] [address] [phone] Jul, Anxiety disorder F41.9 [facility] [id number] [place] [address] [id number] Jul, Other bipolar disorder F31.89 and Anxiety disorder, unspecified F41.9 [facility] [id number] [place] [address] [phone] 18 Jul, 2015 Other bipolar disorder F31.89 and Fibromyalgia M79.7 [facility] [address] [id number] [place] [address] 48994- 8524 10 Jul, 2015 [facility] [id number] [place] [address] 50892- 5155 Jul, [facility] [id number] [place] [address] 63477- 7211 Jul, [facility] [address] [address]- 1217 Jul, Other bipolar disorder F31.89 and Anxiety disorder, unspecified F41.9 [facility] [id number] [place] [address] 37893- 0914 Jun, GERD (gastroesophageal reflux disease) K21.9 [facility] [id number] [place] [address] 27460- 9595 Jun, [facility] [address] 57066- 8942 May, [facility] [id number] [place] [address] 49604- 2792 May, Diabetes E11.9 ; Back pain M54.9 ; GERD (gastroesophageal reflux disease) K21.9 ; Hypertension I10 and Peripheral neuropathy G62.9 [facility] [id number] [place] [address] 57929- 9669 Mar, [facility] [id number] [place] [address] 57426- 9909 Mar, [facility] [id number] [place] [address] 40957- 8274 Mar, Acute sinusitis J01.90 and Otitis media, left H66.92 [facility] [id number] [place] [address] 67293- 1811 Feb, [facility] [id number] [place] [address] 06143- 5543 Feb, [facility] [id number] [place] [address] 21108- 1269 Feb, [facility] [id number] [place] [address] 22660- 7284 Feb, [facility] [id number] [address] 7780 Jan, [facility] [id number] [place] [address] 51609- 9177 Jan, Diabetes 250.00 and Back pain 724.5 [facility] [id number] [place] [address] 30297- 7410 Jan, [facility] [id number] [place] [address] 01358- 4934 Dec, Diabetes 250.00 ; Benign essential hypertension 401.1 and Allergic rhinitis 477.9 [facility] [id number] [place] [address] 81541- 0658 Dec, [facility] [id number] [place] [address] 39729- 4761 Dec, [facility] [id number] [place] [address] 00044- 8353 Dec, Psychosis 298.9 [facility] [id number] [place] [address] 70955- 7477 Dec, Medication side effect 995.20 and Generalized anxiety disorder 300.02 [facility] [id number] [place] [address] 36513- 8103 Dec, Acquired cognitive dysfunction 294.9 [facility] [id number] [place] [address] 49468- 4892 Dec, [facility] [id number] [place] [address] 13384- 8005 Dec, Unspecified myalgia and myositis 729.1 and Generalized anxiety disorder 300.02 [facility] [id number] [place] [address] 21986- 3035 Nov, [facility] [id number] [place] [address] 13975- 0394 Nov, [facility] [id number] [place] [address] 78397- 6780 Nov, [facility] [address] [address] 9828 Nov, Upper respiratory infection 465.9 and Chronic airway obstruction, not elsewhere classified 496 [facility] [address] [address]- 0233 Nov, Hyponatremia 276.1 [facility] [id number] [place] [address] 25508- 5458 Oct, [facility] [id number] [place] [address] 71061- 1799 Oct, [facility] [id number] [place] [address] 37486- 8768 Oct, [facility] [id number] [place] [address] 95592- 7075 Oct, [facility] [id number] [place] [address] 73502- 7649 Oct, Hyponatremia 276.1 [facility] [id number] [place] [address] 82287- 5863 Oct, [facility] [address] [address]- 1657 Oct, [facility] [address] [address]- 4693 Oct, Generalized anxiety disorder 300.02 [facility] [address] [address]- 9685 Oct, Generalized anxiety disorder 300.02 and Diabetes 250.00 [facility] [id number] [place] [address] 22349- 0628 Aug, [facility] [address] [address]- 1060 Aug, [facility] [address] [address]- 2877 Jul, [facility] [place] [facility] [address] [id number] [place] [address]- 9654 Jul, [facility] [place] [facility] [address] [id number] [place] [address]- 0905 Jun, [facility] [place] [facility] [address] [id number] [place] 4906 Jun, [facility] [place] [facility] [address] [id number] [place] [address]- 5841 Jun, [facility] [place] [facility] [address] [id number] [place] 9[address] Jun, [facility] [place] [facility] [address] [id number] [place] [address]- 4962 Jun, [facility] [place] [facility] [address] [id number] [place] [address]- 9916 May, [facility] [place] [facility] [address] [id number] [place] [address]- 9632 May, [facility] [place] [facility] [address] [id number] [place] [address]- 9615 Apr, [facility] [place] [facility] [address] [id number] [place] [address]- 8540 Apr, [facility] [place] [facility] [address] [id number] [place] [address]- 8277 Apr, [facility] [place] [facility] [address] [id number] [place] [address]- 4538 18 Apr, 2013 [facility] [place] [facility] [address] [id number] [place] [address]- 9942 17 Apr, 2013 [facility] [place] [facility] [address] [id number] [place] [address]- 1218 Apr, [facility] [place] [facility] [address] [id number] [place] [address]- 6830 Apr, [facility] [place] [facility] [address] [id number] [place] [address]- 2546 Apr, [facility] [address] [id number] [place] [address]- 8384 Feb, [facility] [place] [facility] [address] [id number] [place] [address]- 2546 Feb, [facility] [address] [id number] [place] [address]- 0519 Jan, [facility] [address] [id number] [place] [address]- 2540 Jan, [facility] [address] [id number] [place] [address]- 6419 Dec, [facility] [address] [id number] [place] [address]- 0096 Dec, [facility] [address] [id number] [place] [address]- 8957 Dec, [facility] [address] [id number] [place] [address]- 4531 Nov, [facility] [address] [id number] [place] [address]- 6549 Nov, [facility] [address] [id number] [place] [address]- 9306 Nov, [facility] [address] [id number] [place] [address]- 7909 Oct, [facility] [address] [id number] [place] [address]- 6417 Oct, [facility] [place] [facility] [address] [id number] [place] [address]- 1143 Oct, [facility] [place] [facility] [address] [id number] [place] [address]- 2546 September, [facility] [address] [id number] [place] 2487 September, [facility] [address] [id number] [place] [address]- 3037 September, [facility] [place] [facility] [address] [id number] [place] [address]- 9770 Aug, [facility] [place] [facility] [address] [id number] [place] [address]- 1410 Aug, [facility] [place] [facility] [address] [id number] [place] [address]- 4015 Aug, [facility] [address] [id number] [place] [address]- 9779 16 Aug, 2011 [facility] [place] [facility] [address] [id number] [place] [address]- 3714 Jul, [facility] [place] [facility] [address] [id number] [place] [address]- 7853 Jun, [facility] [place] [facility] [address] [id number] [place] [address]- 1610 14 Jun, 2011 [facility] [place] [facility] [address] [id number] [place] [address]- 8371 13 Jun, 2011 [facility] [place] [facility] [address] [id number] [place] [address]- 1921 Jun, [facility] [place] [facility] [address] [id number] [place] [address]- 7132 Jun, [facility] [place] [facility] [address] [id number] [place] [address]- 1879 May, [facility] [place] [facility] [address] [id number] [place] [address]- 3952 May, [facility] [place] [facility] [address] [id number] [place] [address]- 6411 09 May, 2011 [facility] [place] [facility] [address] [id number] [place] [address]- 5018 May, [facility] [place] [facility] [address] [id number] [place] [address]- 1768 20 Apr, 2011 [facility] [place] [facility] [address] [id number] [place] 8384 13 Apr, 2011 [facility] [place] [facility] [address] [id number] [place] 6438 05 Apr, 2011 [facility] [place] [facility] [address] [id number] [place] [address]- 8019 Mar, [facility] [place] [facility] [address] [id number] [place] [address]- 3269 Mar, [facility] [place] [facility] [address] [id number] [place] [address]- 8922 Mar, [facility] [place] [facility] [address] [id number] [place] [address]- 2325 13 Feb, 2011 [facility] [place] [facility] [address] [id number] [place] [address]- 9657 13 Feb, 2011 [facility] [place] [facility] [address] [id number] [place] [address]- 4161 13 Feb, 2011 [facility] [place] [facility] [address] [id number] [place] [address]- 0049 Nov, [facility] [place] [facility] [address] [id number] [place] [address]- 9284 16 Sep, 2010 [facility] [place] [facility] [address] [id number] [place] [address]- 3512 12 Aug, 2010 [facility] [place] [facility] [address] [id number] [place] [address]- 4526 14 Jul, 2010 [facility] [place] [facility] [address] [id number] [place] [address]- 4943 May, [facility] [place] [facility] [address] [id number] [place] [address]- 5415 31 Apr, 2010 [facility] [place] [facility] [address] [id number] [place] [address]- 7966 Apr, [facility] [address] [facility] [id number] [place] [id number] 8947 Apr, [facility] [address] [facility] [id number] [place] 5738 Apr, [facility] [address] [facility] [id number] [place] [address]- 8081 Apr, IMMUNIZATIONS No Known Immunizations SOCIAL HISTORY Never Assessed REASON FOR VISIT Requests return call PLAN OF CARE VITAL SIGNS MEDICATIONS Medication Instructions Dosage Frequency Start Date End Date Duration Status MiraLax - Orally Once a day 1 packet mixed with 8 ounces of fluid 24h Oct, Nov, 30 day(s) Active Spiriva HandiHaler 18 MCG Inhalation Once a day 1 capsule 24h Oct, Active RESULTS No Results PROCEDURES No Known [...]
--- OUTSIDE RECORDS SUMMARY | 2017-11-18 07:19 | XMS REPORT ---
Author Author WHIT GANDHI [facility] Address [address] [place] [address] Care Team Providers Care Forest Ecologist Name Role Phone WHIT GANDHI Unavailable PROBLEMS Type Condition ICD9-CM Code [id number] Code Onset Dates Condition Status SNOMED Code Problem Back pain M54.9 Active 575678167 Problem GERD (gastroesophageal reflux disease) K21.9 Active 421340914 Problem Diabetes E11.9 Active 05208089 Problem Hypertension I10 Active 68524153 Problem Acute non-recurrent maxillary sinusitis J01.00 Active 24787386 Problem Anxiety disorder, unspecified F41.9 Active 467897784 Problem Bipolar 1 disorder, depressed, partial remission F31.75 Active 08894640 Problem Other bipolar disorder F31.89 Active 10830481 Problem Mild persistent asthma without complication J45.30 Active 357818587 Problem Panlobular emphysema J43.1 Active 3775113 Problem Moderate persistent asthma without complication J45.40 Active 677904597 Problem Irritable bowel syndrome with constipation K58.1 Active 609912337 Problem Arthritis M19.90 Active 1841801 Problem Chronic obstructive pulmonary disease, unspecified J44.9 Active 52225147 Problem Panic disorder with agoraphobia F40.01 Active 47597414 Problem Fibromyalgia M79.7 Active 53769101 Problem Migraine without aura and without status migrainosus, not intractable G43.009 Active 569530466 Problem Akathisia G25.71 Active 816344475 Problem Fibrocystic disease of right breast N60.11 Active 96561733 Problem Fibrocystic disease of left breast N60.12 Active 17679487 Problem Lumbago with sciatica, right side M54.41 Active 648808246 Problem Bipolar 1 disorder, depressed, moderate F31.32 Active 76715452 Problem Other chronic pain G89.29 Active 28132016 Problem Lumbago with sciatica, left side M54.42 Active 539539889 Problem Attention deficit hyperactivity disorder (ADHD), predominantly inattentive type F90.0 Active 71732456 Problem Bipolar I disorder with depression F31.9 Active 60741318 Problem Chronic post-traumatic stress disorder (PTSD) F43.12 Active 649444458 Problem Bipolar affective disorder, remission status unspecified F31.9 Active 54923351 ALLERGIES No Information ENCOUNTERS Encounter Location Date Diagnosis [facility] [id number] [place] [address] 29169- 9467 18 Aug, 2017 [facility] [address] 40250- 0794 Aug, [facility] [id number] [place] [address] 69351- 1703 Aug, [place] [address] 34227- 4327 Jul, [place] [address] 63987- 6363 Jul, Mild persistent asthma without complication J45.30 [facility] [id number] [place] [address] 42044- 5060 19 Jul, 2017 Mild persistent asthma without complication J45.30 [facility] [id number] [place] [address] 38446- 0797 15 Jul, 2017 Bipolar affective disorder, remission status unspecified F31.9 ; Diabetes E11.9 and Irritable bowel syndrome with constipation K58.1 [facility] [id number] [place] [address] 81495- 3296 Jul, [facility] [id number] [place] [address] 77624- 3815 Jul, [place] [id number] [place] [address] 22437- 5291 Jul, Frequent headaches R51 [facility] [id number] [place] [address] 90844- 6291 07 Jul, 2017 [place] [address] 70792- 0984 Jul, [place] [id number] [place] [address] 98973- 6143 Jul, [place] [address] 41866- 0457 Jul, Frequent headaches R51 ; Fibrocystic disease of left breast N60.12 ; Fibrocystic disease of right breast N60.11 and Diabetes E11.9 [place] [id number] [place] [address] 54436- 2104 Jul, [facility] [facility] [id number] [place] [address] 91303- 2054 Jul, [place] [address] 36764- 9926 Jun, Exudative tonsillitis J03.90 [place] [address] 68457- 9682 Jun, [facility] [facility] [id number] [place] [address] 71376- 5707 Jun, [facility] [facility] [id number] [place] [address] 11151- 3702 15 Jun, 2017 Mild persistent asthma without complication J45.30 ; Chronic obstructive pulmonary disease, unspecified COPD type J44.9 and Exudative tonsillitis J03.90 [facility] [facility] [id number] [place] [address] 96107- 3602 13 Jun, 2017 Encounter for immunization Z23 [facility] [id number] [place] [address] 07066- 1928 Jun, [place] [address] 15705- 1882 Jun, [place] [id number] [place] [address] 29605- 1103 Jun, [facility] [id number] [place] [address] 04500 -4145 06 Jun, 2017 Tonsillitis J03.90 [place] [address] 27381- 4567 05 Jun, 2017 [place] [address] 382944- 3013 Jun, Acute non-recurrent maxillary sinusitis J01.00 [place] [address] 58744- 5777 Jun, [place] [address] 77166- 1069 May, [place] [address] 80697- 3420 May, [place] [address] 58027- 5654 May, GERD (gastroesophageal reflux disease) K21.9 [place] [address] 00073- 8188 May, Migraine without aura and without status migrainosus, not intractable G43.009 [place] [address] 38211- 2797 May, [place] [address] 87163- 5577 May, [place] [address] 78218- 8281 May, Panlobular emphysema J43.1 and Acute non-recurrent maxillary sinusitis J01.00 [place] [address] 27592- 5024 May, Bipolar 1 disorder, depressed, moderate F31.32 ; Panic disorder with agoraphobia F40.01 and Akathisia G25.71 [place] [address] 07215- 2996 Apr, [place] [id number] [place] [address] 20792- 0938 14 Apr, 2017 [facility] [address] 72458- 4039 Apr, Acute non-recurrent maxillary sinusitis J01.00 [facility] [id number] [place] [address] 83385- 4324 07 Apr, 2017 Panlobular emphysema J43.1 [facility] [address] 28166- 8391 04 Apr, 2017 [facility] [address] 68919 -1156 04 Apr, 2017 Exudative tonsillitis J03.90 and Sore throat J02.9 [facility] [address] 95185- 4144 17 Mar, 2017 [facility] [address] 45172- 2613 15 Mar, 2017 Acute non-recurrent maxillary sinusitis J01.00 [place] [address] 67393- 9526 Mar, [facility] [id number] [place] [address] 25152- 5557 Mar, Panlobular emphysema J43.1 and Diabetes E11.9 [facility] [id number] [place] [address] 05904- 2139 Mar, [facility] [id number] [place] [address] 24456 -6817 Feb, Wheezing R06.2 and Acute recurrent pansinusitis J01.41 [facility] [id number] [place] [address] 28831- 0009 Feb, [facility] [id number] [place] [address] 66802- 9767 Feb, Acute non-recurrent maxillary sinusitis J01.00 [facility] [id number] [place] [address] 958834- 4437 16 Feb, 2017 Chronic obstructive pulmonary disease, unspecified J44.9 [facility] [address]2942 254 02 Feb, 2017 Hypoxemia R09.02 and Chronic obstructive pulmonary disease, unspecified J44.9 [facility] [address] [place] [address]- 9679 28 Jan, 2017 Bipolar 1 disorder, depressed, moderate F31.32 ; Panic disorder with agoraphobia F40.01 ; Chronic post-traumatic stress disorder (PTSD ) F43.12 ; Diabetes E11.9 and Moderate persistent asthma without complication J45.40 [facility] [address] 6[address]- 2544 22 Jan, 2017 [facility] [address] 382940- 9459 19 Jan, 2017 Acute non-recurrent maxillary sinusitis J01.00 [facility] [address] 01167- 5809 18 Jan, 2017 [facility] [address] 95141 2544 18 Jan, 2017 [facility] [address] 22892 2548 Jan, Moderate persistent asthma without complication J45.40 and Hypoxemia R09.02 [facility] [address] 91077 2546 11 Jan, 2017 Moderate persistent asthma without complication J45.40 and Hypoxemia R09.02 [facility] [address] 90759 2546 Jan, [facility] [address] 61811- 2545 Dec, Acute non-recurrent maxillary sinusitis J01.00 [facility] [address] [place] [address]- 3659 Dec, Chronic obstructive pulmonary disease, unspecified J44.9 [facility] [id number] [place] [address] 76952- 1969 Dec, [facility] [id number] [place] [address] 59802- 4177 Dec, Mild persistent asthma without complication J45.30 and Other chronic pain G89.29 [facility] [id number] [place] [address] 90198- 1826 Nov, [facility] [id number] [place] [address] 81581- 5390 Nov, Acute non-recurrent maxillary sinusitis J01.00 [facility] [id number] [place] [address] 20435- 6100 Nov, [facility] [id number] [place] [address] 89134- 7060 Nov, [facility] [id number] [place] [address] 13486- 5223 Oct, [facility] [id number] [place] [address] 23212- 6718 Oct, Bipolar 1 disorder, depressed, partial remission F31.75 ; Panic disorder with agoraphobia F40.01 and Chronic post-traumatic stress disorder (PTSD) F43.12 [facility] [id number] [place] [address] 44113- 2666 Oct, Acute non-recurrent maxillary sinusitis J01.00 [facility] [id number] [place] [address] 64444- 5303 Oct, [facility] [id number] [place] [address] 29707- 2805 Oct, Diabetes E11.9 [facility] [id number] [place] [address] 47904- 1179 September, Diabetes E11.9 [facility] [id number] [place] [address] 60768- 9078 September, Diabetes E11.9 and Sinus tachycardia R00.0 [facility] [id number] [place] [address] 50699- 9845 September, [facility] [id number] [place] [address] 23294- 4040 September, [facility] [id number] [place] [address] 13846- 2284 Aug, Diabetes E11.9 and Lumbago with sciatica, right side M54.41 [facility] [id number] [place] [address] 97016- 7908 Aug, [facility] [id number] [place] [address] 33270- 1202 Jul, Bipolar 1 disorder, depressed, moderate F31.32 ; Panic disorder with agoraphobia F40.01 and Chronic post-traumatic stress disorder ( PTSD) F43.12 [facility] [id number] [place] [address] 17517- 7665 Jul, Sore throat J02.9 [facility] [id number] [place] [address] 62205- 4823 Jul, [facility] [id number] [place] [address] 64240- 5860 Jul, [facility] [id number] [place] [address] 79825- 9564 Jul, [facility] [id number] [place] [address] 16764- 4978 Jul, [facility] [id number] [place] [address] 06892- 6627 Jul, Sore throat J02.9 and Pharyngitis, unspecified etiology J02.9 [facility] [id number] [place] [address] 68490- 0939 Jun, [facility] [address] [address]- 3220 Jun, Diabetes E11.9 [facility] [address] [address]- 9385 Jun, [facility] [id number] [address]- 7966 Jun, [facility] [address] [address]- 3498 Jun, [facility] [id number] [place] [address] 35814- 8975 Jun, [facility] [id number] [address]- 5881 Jun, [facility] [id number] [address]- 1877 Jun, [facility] [id number] [address]- 5094 Jun, [facility] [id number] [address]- 7200 Jun, [facility] [address] [address]- 8922 May, Diabetes E11.9 ; Other chronic pain G89.29 ; Acute recurrent maxillary sinusitis J01.01 ; Bipolar I disorder with depression F31.9 and Anxiety disorder, unspecified F41.9 [facility] [address] [address]- 4833 May, [facility] [address] [address]- 5601 May, Diabetes E11.9 ; Bipolar I disorder with depression F31.9 ; Anxiety disorder, unspecified F41.9 ; Other chronic pain G89.29 and Acute recurrent maxillary sinusitis J01.01 [facility] [id number] [place] [address] 16755- 0317 May, [facility] [id number] [place] [address] 20336- 0961 May, Attention deficit hyperactivity disorder (ADHD), predominantly inattentive type F90.0 [place] [id number] [place] [address] 98517- 0383 May, [place] [id number] [place] [address] 47568- 3399 Apr, Attention deficit hyperactivity disorder (ADHD), predominantly inattentive type F90.0 and Non-seasonal allergic rhinitis due to other allergic trigger J30.89 [place] [id number] [place] [address] 48690- 7899 Apr, Bipolar 1 disorder, depressed, moderate F31.32 ; Panic disorder with agoraphobia F40.01 and Chronic post-traumatic stress disorder ( PTSD) F43.12 [place] [id number] [place] [address] 82993- 8677 Apr, Dental examination Z01.20 [place] [id number] [place] [address] 86593- 1279 Mar, [place] [id number] [place] [address] 70020- 1809 Mar, [place] [id number] [place] [address] 81888- 4018 Mar, Bipolar I disorder with depression F31.9 and Anxiety disorder, unspecified F41.9 [place] [id number] [place] [address] 95849- 8420 08 Mar, 2016 Panic disorder with agoraphobia F40.01 ; Bipolar 1 disorder , depressed, moderate F31.32 and Chronic post-traumatic stress disorder (PTSD) F43.12 [place] [id number] [place] [address] 94735- 4460 Mar, [place] [address] 65418- 9898 Mar, Dental caries K02.9 [place] [address] 59723- 9501 Feb, Lumbago with sciatica, left side M54.42 ; Lumbago with sciatica, right side M54.41 and Other chronic pain G89.29 [place] [address] 22120- 1307 Feb, [place] [address] 83285- 8661 14 Feb, 2016 [place] [address] 14829- 5125 Feb, Bipolar I disorder with depression F31.9 ; PTSD (post- traumatic stress disorder) F43.10 and Mood disorder F39 [place] [address] 65132- 8392 Feb, [place] [address] 84987- 2374 Feb, Dental examination Z01.20 [place] [address] 66809- 6352 07 Feb, 2016 [facility] [address] 90967 -8972 Feb, Acute bronchitis, unspecified organism J20.9 [place] [address] 10513- 9597 26 Jan, 2016 Mood disorder F39 ; Migraine without aura and without status migrainosus, not intractable G43.009 ; Irritable bowel syndrome, unspecified type K58.9 ; Diabetes E11.9 and Encounter for immunization Z23 [place] [address] 75291- 3731 15 Jan, 2016 [place] [address] 86111- 1892 Jan, [facility] [address] [address]- 4189 Jan, [facility] [id number] [place] [address] 96816- 2262 Jan, [facility] [id number] [place] [address] 58611- 1083 Jan, [facility] [id number] [place] [address] 76247- 4131 Dec, Bipolar I disorder with depression F31.9 ; PTSD (post- traumatic stress disorder) F43.10 and Panic disorder with agoraphobia F40.01 [facility] [id number] [place] [address] 08295- 3055 Dec, Chronic obstructive pulmonary disease, unspecified COPD type J44.9 ; Tremor R25.1 and Anxiety F41.9 [facility] [id number] [place] [address] 61610- 6617 Dec, [facility] [id number] [place] [address] 50257- 7280 Nov, Tremors of nervous system R25.1 and Cramping of feet R25.2 [facility] [id number] [place] [address] 54754- 8339 Nov, [facility] [id number] [place] [address] 77026- 3971 Nov, [facility] [id number] [place] [address] 73485- 3448 Oct, Chronic obstructive pulmonary disease, unspecified J44.9 [facility] [id number] [place] [address] 31827- 7668 Oct, [facility] [id number] [place] [address] 94886- 6668 Oct, Tremor R25.1 [facility] [id number] [place] [address] 40022- 5084 Oct, Bipolar I disorder with depression F31.9 ; Diabetes E11.9 ; PTSD (post-traumatic stress disorder) F43.10 and Panic disorder with agoraphobia F40.01 [facility] [address] [address]- 9103 Oct, Mood disorder F39 [place] [id number] [place] [address] 89912- 8926 September, [place] [id number] [place] [address] 30263- 9367 September, Diabetes E11.9 ; Bipolar I disorder with depression F31.9 ; PTSD (post-traumatic stress disorder) F43.10 and Panic disorder with agoraphobia F40.01 [place] [id number] [place] [address] 55797- 8208 September, Mood disorder F39 ; Schizoaffective disorder, unspecified type F25.9 ; Arthritis M19.90 ; Tremor R25.1 ; Acute non-recurrent frontal sinusitis J01.10 and Blood in stool K92.1 [place] [id number] [place] [address] 04773- 4344 September, [place] [id number] [place] [address] 85375- 1607 September, Chronic obstructive pulmonary disease, unspecified J44.9 [place] [id number] [place] [address] 00146- 0501 September, Diabetes E11.9 [place] [id number] [place] [address] 40272- 8494 Aug, Other bipolar disorder F31.89 and Anxiety disorder, unspecified F41.9 [facility] [id number] [place] [address] 48872- 7368 Aug, [place] [id number] [place] [address] 77066- 7095 Aug, Diabetes E11.9 [facility] [id number] [place] [address] 44834- 4124 18 Aug, 2015 [facility] [id number] [place] [address] 76323- 0236 14 Aug, 2015 Diabetes E11.9 ; Fatigue R53.83 and Dizziness R42 [facility] [id number] [place] [address] 98649- 6326 13 Aug, 2015 Other bipolar disorder F31.89 [facility] [id number] [place] [address] 58070- 7126 07 Aug, 2015 Generalized anxiety disorder F41.1 [place] [id number] [place] [address] 65739- 0400 07 Aug, 2015 Other bipolar disorder F31.89 and Anxiety disorder, unspecified F41.9 [place] [id number] [place] [address] 95070- 2880 Aug, [facility] [id number] [place] [address] 66424- 3641 29 Jul, 2015 [facility] [id number] [place] [address] 96695- 3512 24 Jul, 2015 [facility] [id number] [place] [address] 11304- 0807 23 Jul, 2015 Bronchitis J40 [facility] [id number] [place] [address] 15305- 1003 Jul, Anxiety disorder F41.9 [facility] [id number] [place] [address] 01107- 5977 Jul, Other bipolar disorder F31.89 and Anxiety disorder, unspecified F41.9 [facility] [id number] [place] [address] [phone]- 4774 18 Jul, 2015 Other bipolar disorder F31.89 and Fibromyalgia M79.7 [facility] [id number] [place] [address] [phone]- 6045 Jul, [facility] [id number] [place] [address] [phone]- [phone] Jul, [facility] [address] 6[address]- [address]43 Jul, [facility] [id number] [place] [address] 76579- 5964 Jul, Other bipolar disorder F31.89 and Anxiety disorder, unspecified F41.9 [facility] [address] [address]- 1892 Jun, GERD (gastroesophageal reflux disease) K21.9 [facility] [address] 958[address]- 9780 Jun, [facility] [address] [address]- 2020 May, [facility] [address] [address]- 4049 May, Diabetes E11.9 ; Back pain M54.9 ; GERD (gastroesophageal reflux disease) K21.9 ; Hypertension I10 and Peripheral neuropathy G62.9 [facility] [id number] [place] [address] 53392- [phone] Mar, [facility] [id number] [place] [address] 71011- [phone] Mar, [facility] [id number] [place] [address] [phone]- 8957 Mar, Acute sinusitis J01.90 and Otitis media, left H66.92 [facility] [address] [address]- 7970 Feb, [facility] [address] 74081- 0812 Feb, [facility] [id number] [place] [address] [phone]- [phone] Feb, [facility] [id number] [address] Feb, [facility] [id number] [place] [address] 97722- 6757 Jan, [facility] [id number] [place] [address] 15388- 2559 Jan, Diabetes 250.00 and Back pain 724.5 [facility] [id number] [place] [address] 05896- 1188 Jan, [facility] [id number] [place] [address] 47267- 0672 Dec, Diabetes 250.00 ; Benign essential hypertension 401.1 and Allergic rhinitis 477.9 [facility] [id number] [place] [address] 25914- 0362 Dec, [facility] [id number] [place] [address] 70398- 2775 Dec, [facility] [id number] [place] [address] 11574- 4691 Dec, Psychosis 298.9 [facility] [id number] [place] [address] 75175- 9893 Dec, Medication side effect 995.20 and Generalized anxiety disorder 300.02 [facility] [id number] [place] [address] 61892- 6595 Dec, Acquired cognitive dysfunction 294.9 [facility] [id number] [place] [address] 00995- 1898 Dec, [facility] [id number] [place] [address] 38278- 7782 Dec, Unspecified myalgia and myositis 729.1 and Generalized anxiety disorder 300.02 [facility] [id number] [place] [address] 11113- 7846 Nov, [facility] [id number] [place] [address] 91615- 4599 Nov, [facility] [address] [address] 0895 Nov, [facility] [id number] [place] [address] 67160- 3960 Nov, Upper respiratory infection 465.9 and Chronic airway obstruction, not elsewhere classified 496 [facility] [id number] [place] [address] 83765- 2145 Nov, Hyponatremia 276.1 [facility] [id number] [place] [address] 07809- 3938 Oct, [facility] [id number] [place] [address] 10622- 5808 Oct, [facility] [id number] [place] [address] 47825- 1187 Oct, [facility] [id number] [place] [address] 44727- 2243 Oct, [facility] [id number] [place] [address] 88852- 7317 Oct, Hyponatremia 276.1 [facility] [id number] [place] [address] 09760- 0124 Oct, [facility] [address] [address]- 2199 Oct, [facility] [id number] [place] [address] 43534- 1638 Oct, Generalized anxiety disorder 300.02 [facility] [id number] [place] [address] 65245- 3328 Oct, Generalized anxiety disorder 300.02 and Diabetes 250.00 [facility] [address] [address]- 9926 14 Aug, 2014 [facility] [id number] [place] [address] 53350- 5181 Aug, [facility] [place] [facility] [address] [id number] [place] [address]- 5584 Jul, [facility] [place] [facility] [address] [id number] [place] [address]- 8142 Jul, [facility] [place] [facility] [address] [id number] [place] [address]- 5628 Jun, [facility] [place] [facility] [address] [id number] [place] [address]- 1034 Jun, [facility] [place] [facility] [address] [id number] [place] [address]- 8031 Jun, [facility] [place] [facility] [address] [id number] [place] [address]- 0871 Jun, [facility] [place] [facility] [address] [id number] [place] [address]- 0812 Jun, [facility] [place] [facility] [address] [id number] [place] [address]- 3356 May, [facility] [place] [facility] [address] [id number] [place] [address]- 3748 May, [facility] [place] [facility] [address] [id number] [place] [address]- 5069 Apr, [facility] [place] [facility] [address] [id number] [place] [address]- 1953 Apr, [facility] [place] [facility] [address] [id number] [place] [address]- 3670 18 Apr, 2013 [facility] [place] [facility] [address] [id number] [place] [address]- 7159 18 Apr, 2013 [facility] [place] [facility] [address] [id number] [place] [address]- 2304 Apr, [facility] [place] [facility] [address] [id number] [place] [address]- 9579 17 Apr, 2013 [facility] [place] [facility] [address] [id number] [place] [address]- 2546 Apr, [facility] [address] [id number] [place] [address]- 6036 Apr, [facility] [place] [facility] [address] [id number] [place] [address]- 2546 Feb, [facility] [address] [id number] [place] [address]- 2548 Feb, [facility] [address] [id number] [place] [address]- 2543 Jan, [facility] [address] [id number] [place] [address]- 3094 Jan, [facility] [address] [id number] [place] [address]- 1304 Dec, [facility] [address] [id number] [place] [address]- 1033 Dec, [facility] [address] [id number] [place] [address]- 3979 Dec, [facility] [address] [id number] [place] [address]- 7131 Nov, [facility] [address] [id number] [place] [address]- 3458 Nov, [facility] [address] [id number] [place] [address]- 2545 Nov, [facility] [address] [id number] [place] [address]- 7973 Oct, [facility] [place] [facility] [address] [id number] [place] [address]- 1810 Oct, [facility] [place] [facility] [address] [id number] [place] [address]- 2546 Oct, [facility] [address] [id number] [place] [address]- 3443 September, [facility] [address] [id number] [place] [address]- 1757 September, [facility] [place] [facility] [address] [id number] [place] [address]- 6062 September, [facility] [place] [facility] [address] [id number] [place] [address]- 9498 Aug, [facility] [place] [facility] [address] [id number] [place] [address]- 8917 Aug, [facility] [address] [id number] [place] [address]- 3535 Aug, [facility] [place] [facility] [address] [id number] [place] [address]- 1137 16 Aug, 2011 [facility] [place] [facility] [address] [id number] [place] [address]- 7550 Jul, [facility] [place] [facility] [address] [id number] [place] [address]- 8977 Jun, [facility] [place] [facility] [address] [id number] [place] [address]- 3130 14 Jun, 2011 [facility] [place] [facility] [address] [id number] [place] [address]- 7175 Jun, [facility] [place] [facility] [address] [id number] [place] [address]- 1567 Jun, [facility] [place] [facility] [address] [id number] [place] [address]- 7977 Jun, [facility] [place] [facility] [address] [id number] [place] [address]- 0042 May, [facility] [place] [facility] [address] [id number] [place] [address]- 5865 May, [facility] [place] [facility] [address] [id number] [place] [address]- 3392 May, [facility] [place] [facility] [address] [id number] [place] [address]- 1932 04 May, 2011 [facility] [address] [id number] [place] [address]- 1132 Apr, [facility] [place] [facility] [address] [id number] [place] [address]81 13 Apr, 2011 [facility] [place] [facility] [address] [id number] [place] [address]- 4701 05 Apr, 2011 [facility] [place] [facility] [address] [id number] [place] [address]- 0450 Mar, [facility] [place] [facility] [address] [id number] [place] [address]- 0923 Mar, [facility] [place] [facility] [address] [id number] [place] [address]- 4800 Mar, [facility] [place] [facility] [address] [id number] [place] [address]- 5969 Feb, [facility] [place] [facility] [address] [id number] [place] [address]- 4013 Feb, [facility] [place] [facility] [address] [id number] [place] [address]- 1970 Feb, [facility] [place] [facility] [address] [id number] [place] [address]- 3082 Nov, [facility] [place] [facility] [address] [id number] [place] [address]- 2377 September, [facility] [place] [facility] [address] [id number] [place] [address]- 3709 Aug, [facility] [place] [facility] [address] [id number] [place] [address]- 3853 14 Jul, 2010 [facility] [place] [facility] [address] [id number] [place] [address]- 4627 May, [facility] [place] [facility] [address] [id number] [place] [address]- 6437 Apr, [facility] [address] [facility] [id number] [place] [address]- 1992 Apr, [facility] [address] [facility] [id number] [address]- 3765 Apr, [facility] [id number] [address]- 4227 Apr, [facility] [address] [facility] [id number] [address]- 8433 Apr, IMMUNIZATIONS No Known Immunizations SOCIAL HISTORY Never Assessed REASON FOR VISIT Medication question PLAN OF CARE VITAL SIGNS MEDICATIONS Unknown [...]
--- OUTSIDE RECORDS SUMMARY | 2017-11-18 07:20 | XMS REPORT ---
Author Author WHIT GANDHI [facility] Address [address] [place] [address] Care Team Providers Care Slabber Name Role Phone WHIT GANDHI Unavailable PROBLEMS Type Condition ICD9-CM Code [id number] Code Onset Dates Condition Status SNOMED Code Problem Bipolar 1 disorder, depressed, moderate F31.32 Active 03279754 Problem Bipolar affective disorder, remission status unspecified F31.9 Active 37380841 Problem Chronic post-traumatic stress disorder (PTSD) F43.12 Active 090656546 Problem Moderate persistent asthma without complication J45.40 Active 833376386 Problem GERD (gastroesophageal reflux disease) K21.9 Active 928123512 Problem Mild persistent asthma without complication J45.30 Active 667118585 Problem Back pain M54.9 Active 679488310 Problem Nondependent tobacco use disorder 305.1 Active 128341935 Problem Bipolar I disorder with depression F31.9 Active 42122778 Problem Attention deficit hyperactivity disorder (ADHD), predominantly inattentive type F90.0 Active 84156101 Problem Bipolar 1 disorder, depressed, partial remission F31.75 Active 62939602 Problem Acute non-recurrent maxillary sinusitis J01.00 Active 48650358 Problem Anxiety disorder, unspecified F41.9 Active 664601914 Problem Other bipolar disorder F31.89 Active 43426466 Problem Diabetes E11.9 Active 04461929 Problem Hypertension I10 Active 56984504 Problem Chronic obstructive pulmonary disease, unspecified J44.9 Active 53127414 Problem Lumbago with sciatica, left side M54.42 Active 281789814 Problem Fibromyalgia M79.7 Active 46248991 Problem Lumbago with sciatica, right side M54.41 Active 122371925 Problem Panic disorder with agoraphobia F40.01 Active 63868335 Problem Other chronic pain G89.29 Active 26054057 ALLERGIES No Information SOCIAL HISTORY Never Assessed PLAN OF CARE VITAL SIGNS MEDICATIONS Medication Instructions Dosage Frequency Start Date End Date Duration Status Kcrynbhsda-IGVL-Bakittwe 50-325-40 MG Orally every 6 hours as needed for headaches 1 capsule as needed Jun, Dec, 30 days Active RESULTS No Results PROCEDURES [...]
--- OUTSIDE RECORDS SUMMARY | 2017-11-18 07:22 | XMS REPORT ---
Author Author JOHANN YVON Organization [facility] Address [address] [place] [address] Care Team Providers Care Offal Separator Name Role Phone KYE WILLSA Unavailable PROBLEMS Type Condition ICD9-CM Code [id number] Code Onset Dates Condition Status SNOMED Code Problem GERD (gastroesophageal reflux disease) K21.9 Active 729074346 Problem Back pain M54.9 Active 634025887 Problem Diabetes E11.9 Active 92479643 Problem Hypertension I10 Active 99076069 Problem Anxiety disorder, unspecified F41.9 Active 312323574 Problem Other bipolar disorder F31.89 Active 69581016 Problem Fibromyalgia M79.7 Active 42726902 Problem Moderate persistent asthma without complication J45.40 Active 216067462 Problem Panic disorder with agoraphobia F40.01 Active 21984834 Problem Panlobular emphysema J43.1 Active 5926168 Problem Chronic obstructive pulmonary disease, unspecified J44.9 Active 27517915 Problem Akathisia G25.71 Active 070837568 Problem Fibrocystic disease of left breast N60.12 Active 68181385 Problem Migraine without aura and without status migrainosus, not intractable G43.009 Active 221602457 Problem Essential tremor G25.0 Active 261618814 Problem Schizoaffective disorder, bipolar type F25.0 Active 64643891 Problem Other chronic pain G89.29 Active 02874598 Problem Lumbago with sciatica, right side M54.41 Active 075554202 Problem Lumbago with sciatica, left side M54.42 Active 455476592 Problem Arthritis M19.90 Active 1494155 Problem Fibrocystic disease of right breast N60.11 Active 20948348 Problem Irritable bowel syndrome with both constipation and diarrhea K58.2 Active 25091505 Problem Irritable bowel syndrome with constipation K58.1 Active 612702824 Problem Bipolar affective disorder, remission status unspecified F31.9 Active 47776908 Problem Attention deficit hyperactivity disorder (ADHD), predominantly inattentive type F90.0 Active 01424100 Problem Bipolar 1 disorder, depressed, moderate F31.32 Active 48510409 Problem Chronic post-traumatic stress disorder (PTSD) F43.12 Active 917441605 Problem Bipolar 1 disorder, depressed, partial remission F31.75 Active 71261369 Problem Mild persistent asthma without complication J45.30 Active 867454554 Problem Bipolar I disorder with depression F31.9 Active 81205669 Problem Acute non-recurrent maxillary sinusitis J01.00 Active 87564015 ALLERGIES No Information ENCOUNTERS Encounter Location Date Diagnosis [place] [address] [address]- [address] Nov, [place] [address] 83310- 7856 Oct, [place] [address] 11772- 0925 Oct, [place] [address] 90068- 9795 Oct, [place] [address] 16259- 4582 Oct, [place] [address] 78186- 2258 September, Frequent headaches R51 [place] [address] 97101- 6628 September, Bilateral otitis media with effusion H65.93 ; Dizziness R42 and Essential tremor G25.0 [place] [address] [place] [id number] [place] [address] 92893- 2242 September, Chronic obstructive pulmonary disease, unspecified COPD type J44.9 [place] [address] 05400- 6748 September, Chronic obstructive pulmonary disease, unspecified COPD type J44.9 [place] [address] [place] [id number] [place] [address] 16445- 5415 September, Migraine without aura and without status migrainosus, not intractable G43.009 [facility] [address] [address] September, [facility] [address] [place] [id number] [place] [address] 54876- 9179 September, [facility] [address] [place] [id number] [place] [address] 83679- 4593 September, [facility] [address] [place] [id number] [place] [address] 52780- 3339 September, Frequent headaches R51 [facility] [address] [place] [id number] [place] [address] 63947- 4271 Aug, [facility] [address] [place] [id number] [place] [address] 00589- 3588 Aug, Breast mass, right N63.10 [place] [address] 91977- 4843 Aug, Breast lump N63.0 [facility] [address] [place] [id number] [place] [address] 89946- 3600 Aug, [facility] [address] [place] [id number] [place] [address] 63875- 3748 Aug, Bipolar affective disorder, remission status unspecified F31.9 and Diabetes E11.9 [place] [address] [place] [id number] [place] [address] 28318- 5455 Aug, Diabetes E11.9 ; Schizoaffective disorder, bipolar type F25.0 ; Pharyngitis due to other organism J02.8 ; Panlobular emphysema J43.1 and Irritable bowel syndrome with both constipation and diarrhea K58.2 [place] [address] [place] [id number] [place] [address] 62528- 0199 Aug, Abnormal mammogram R92.8 [facility] [address] [place] [id number] [place] [address] 09142- 1839 Aug, [facility] [address] [place] [address]- 5478 Aug, Bipolar 1 disorder, depressed, moderate F31.32 ; Panic disorder with agoraphobia F40.01 and Chronic post-traumatic stress disorder ( PTSD) F43.12 [facility] [address] [place] [id number] [place] [address] 16682- 9731 Aug, [facility] [address] [place] [id number] [place] [address] 99520- 8413 Aug, [facility] [address] [place] [id number] [place] [address] 41327- 7972 Aug, [facility] [address] [place] [id number] [place] [address] 96719- 8201 Jul, [facility] [address] [place] [id number] [place] [address] 40445- 7037 Jul, Mild persistent asthma without complication J45.30 [place] [address] [place] [id number] [place] [address] 53769- 7376 Jul, Mild persistent asthma without complication J45.30 [facility] [address] [place] [id number] [place] [address] 25536- 9726 15 Jul, 2017 Bipolar affective disorder, remission status unspecified F31.9 ; Diabetes E11.9 and Irritable bowel syndrome with constipation K58.1 [place] [address] [place] [address] 46856- 4669 Jul, [facility] [address] [place] [id number] [place] [address] 42462- 1556 Jul, [facility] [address] [place] [id number] [place] [address] 70898- 3335 08 Jul, 2017 Frequent headaches R51 [facility] [address] [place] [id number] [place] [address] 81429- 0763 07 Jul, 2017 [facility] [address] [place] [id number] [address]- 2321 Jul, [facility] [address] [place] [id number] [place] [address] 18395- 4557 Jul, [place] [address] 76419- 0015 Jul, Frequent headaches R51 ; Fibrocystic disease of left breast N60.12 ; Fibrocystic disease of right breast N60.11 and Diabetes E11.9 [place] [address] 29812- 2026 Jul, [facility] [address] 06069- 6392 Jul, [place] [address] 63579- 8512 Jun, Exudative tonsillitis J03.90 [place] [address] 11887- 5375 Jun, [place] [address] 99278- 8754 Jun, [place] [address] [place] [id number] [place] [address] 60479- 3923 15 Jun, 2017 Mild persistent asthma without complication J45.30 ; Chronic obstructive pulmonary disease, unspecified COPD type J44.9 and Exudative tonsillitis J03.90 [place] [address] [place] [id number] [place] [address] 87758- 8050 13 Jun, 2017 Encounter for immunization Z23 [place] [address] [place] [id number] [place] [address] 76942- 6284 Jun, [place] [address] 26446- 7161 Jun, [place] [address] 02417- 5532 Jun, [facility] [address] [place] [id number] [place] [address] 88394 -1555 Jun, Tonsillitis J03.90 [place] [address] [place] [id number] [place] [address] 43044- 9782 05 Jun, 2017 [facility] [address] [place] [id number] [place] [address] 48446- 0519 03 Jun, 2017 Acute non-recurrent maxillary sinusitis J01.00 [place] [address] [place] [id number] [place] [address] 76002- 6989 02 Jun, 2017 [place] [address] 72934- 5358 May, [place] [address] 60053- 1397 May, [place] [address] 75974- 5224 May, GERD (gastroesophageal reflux disease) K21.9 [place] [address] 16778- 9396 May, Migraine without aura and without status migrainosus, not intractable G43.009 [place] [address] 15457- 2511 May, [place] [address] [place] [id number] [place] [address] 30072- 7165 May, [place] [address] [place] [id number] [place] [address] 64499- 6562 May, Panlobular emphysema J43.1 and Acute non-recurrent maxillary sinusitis J01.00 [place] [address] [place] [id number] [place] [address] 14698- 2256 May, Bipolar 1 disorder, depressed, moderate F31.32 ; Panic disorder with agoraphobia F40.01 and Akathisia G25.71 [place] [address] [place] [id number] [place] [address] 08065- 7293 Apr, [place] [address] 18553- 1318 14 Apr, 2017 [facility] [address] [place] [id number] [place] [address] 82928- 2246 Apr, Acute non-recurrent maxillary sinusitis J01.00 [facility] [address] [place] [id number] [place] [address] 99039- 9082 07 Apr, 2017 Panlobular emphysema J43.1 [facility] [address] 90125- 4039 04 Apr, 2017 [facility] [address] [place] [id number] [place] [address] 65178 -4744 04 Apr, 2017 Sore throat J02.9 and Exudative tonsillitis J03.90 [facility] [address] [place] [id number] [place] [address] 36539- 1976 17 Mar, 2017 [facility] [address] 52286- 1989 15 Mar, 2017 Acute non-recurrent maxillary sinusitis J01.00 [facility] [address] [place] [id number] [place] [address] 24994- 9772 Mar, [facility] [address] [place] [id number] [place] [address] 44014- 5097 Mar, Panlobular emphysema J43.1 and Diabetes E11.9 [facility] [address] [place] [id number] [place] [address] 05265- 5540 Mar, [facility] [address] [place] [id number] [place] [address] 87143 -6706 Feb, Wheezing R06.2 and Acute recurrent pansinusitis J01.41 [facility] [address] [place] [id number] [place] [address] 95083- 2588 Feb, [facility] [address] [place] [id number] [place] [address] 97986- 3132 Feb, Acute non-recurrent maxillary sinusitis J01.00 [facility] [address] [place] [id number] [place] [address] 64510- 4006 16 Feb, 2017 Chronic obstructive pulmonary disease, unspecified J44.9 [facility] [address] [place]- 1918 Feb, Hypoxemia R09.02 and Chronic obstructive pulmonary disease, unspecified J44.9 [place] [address] [place] 718553- 7010 28 Jan, 2017 Bipolar 1 disorder, depressed, moderate F31.32 ; Panic disorder with agoraphobia F40.01 ; Chronic post-traumatic stress disorder (PTSD ) F43.12 ; Diabetes E11.9 and Moderate persistent asthma without complication J45.40 [place] [address] 077932- 5148 22 Jan, 2017 [place] [address] 03321- 8620 Jan, Acute non-recurrent maxillary sinusitis J01.00 [place] [address] [place] [id number] [place] [address] 18906- 3341 18 Jan, 2017 [place] [address] 98206- 6409 18 Jan, 2017 [place] [address] [place] [id number] [place] [address] 57266- 7116 Jan, Moderate persistent asthma without complication J45.40 and Hypoxemia R09.02 [place] [address] [place] [id number] [place] [address] 18765- 2540 Jan, Moderate persistent asthma without complication J45.40 and Hypoxemia R09.02 [place] [address] [place] [id number] [place] [address] 11550- 9429 Jan, [facility] [address] [place] [id number] [place] [address] 13231- 5370 Dec, Acute non-recurrent maxillary sinusitis J01.00 [facility] [address] [place] [id number] [place] [address] 07298- 7564 Dec, Chronic obstructive pulmonary disease, unspecified J44.9 [facility] [address] [place] [id number] [place] [address] 03419- 1761 Dec, [facility] [address] [place] [id number] [place] [address] 59160- 8478 Dec, Mild persistent asthma without complication J45.30 and Other chronic pain G89.29 [facility] [address] [place] [id number] [place] [address] 78108- 9329 Nov, [facility] [address] [place] [id number] [place] [address] 26120- 8552 Nov, Acute non-recurrent maxillary sinusitis J01.00 [facility] [address] [place] [id number] [place] [address] 69368- 9152 Nov, [facility] [address] [place] [id number] [place] [address] 20589- 7489 Nov, [facility] [address] [place] [id number] [place] [address] 06800- 8194 Oct, [facility] [address] [place] [id number] [place] [address] 19896- 6976 Oct, Bipolar 1 disorder, depressed, partial remission F31.75 ; Panic disorder with agoraphobia F40.01 and Chronic post-traumatic stress disorder (PTSD) F43.12 [facility] [address] [place] [address] 60153- 1724 Oct, Acute non-recurrent maxillary sinusitis J01.00 [facility] [address] [address]- 6511 Oct, [facility] [address] [place] [id number] [place] [address] 22885- 2186 Oct, Diabetes E11.9 [facility] [address] [place] [address] 91058- 5594 September, Diabetes E11.9 [facility] [address] [place] [id number] [place] [address] 18513- 5510 September, Diabetes E11.9 and Sinus tachycardia R00.0 [facility] [address] [place] [id number] [place] [address] 45817- 6077 September, [facility] [address] [place] [id number] [place] [address] 19405- 6005 September, [facility] [address] 21426- 2023 Aug, Diabetes E11.9 and Lumbago with sciatica, right side M54.41 [facility] [address] [place] [id number] [place] [address] 07530- 8606 Aug, [facility] [address] [place] [id number] [place] [address] 78778- 1424 Jul, Bipolar 1 disorder, depressed, moderate F31.32 ; Panic disorder with agoraphobia F40.01 and Chronic post-traumatic stress disorder ( PTSD) F43.12 [facility] [address] [place] [id number] [place] [address] 09429- 9480 Jul, Sore throat J02.9 [facility] [address] [place] [id number] [place] [address] 50711- 2541 Jul, [facility] [address] [place] [id number] [place] [address] 63197- 1643 Jul, [facility] [address] [place] [id number] [place] [address] 21369- 3425 Jul, [facility] [address] [place] [id number] [place] [address] 65668- 0485 Jul, [facility] [address] [place] [id number] [place] [address] 44122- 4629 Jul, Sore throat J02.9 and Pharyngitis, unspecified etiology J02.9 [facility] [address] [place] [id number] [place] [address] 10403- 2832 Jun, [place] [id number] [facility] [id number] [address]- 8836 Jun, Diabetes E11.9 [facility] [address] [place] [address]- 4806 Jun, [facility] [address] [place] [id number] [address]- 8716 Jun, [facility] [address] [place] [address]- 0476 Jun, [facility] [address] [facility] [id number] [address]- 4806 Jun, [facility] [address] [place] [address]- 0276 Jun, [facility] [address] [place] [address]- 3136 Jun, [facility] [address] [address]- 1312 Jun, [facility] [address] [address]- 3917 Jun, [facility] [address] [address]- 5898 May, Diabetes E11.9 ; Bipolar I disorder with depression F31.9 ; Other chronic pain G89.29 ; Acute recurrent maxillary sinusitis J01.01 and Anxiety disorder, unspecified F41.9 [facility] [address] [place] [id number] [address]- 0193 May, [facility] [address] [address]- 2330 May, Diabetes E11.9 ; Bipolar I disorder with depression F31.9 ; Anxiety disorder, unspecified F41.9 ; Other chronic pain G89.29 and Acute recurrent maxillary sinusitis J01.01 [facility] [address] [address]- 4644 May, [facility] [address] [place] [address] 42836- 6359 May, Attention deficit hyperactivity disorder (ADHD), predominantly inattentive type F90.0 [facility] [address] [place] [id number] [place] [address] 77323- 7793 May, [place] [address] [place] [id number] [place] [address] 22198- 1209 Apr, Attention deficit hyperactivity disorder (ADHD), predominantly inattentive type F90.0 and Non-seasonal allergic rhinitis due to other allergic trigger J30.89 [place] [address] [place] [id number] [place] [address] 906264- 9231 Apr, Bipolar 1 disorder, depressed, moderate F31.32 ; Panic disorder with agoraphobia F40.01 and Chronic post-traumatic stress disorder ( PTSD) F43.12 [place] [address] [place] [id number] [place] [address] 06825- 4402 Apr, Dental examination Z01.20 [place] [address] [place] [id number] [place] [address] 78344- 4188 Mar, [place] [address] [place] [id number] [place] [address] 98555- 1973 Mar, [place] [id number] [place] [address] 97544- 1299 Mar, Bipolar I disorder with depression F31.9 and Anxiety disorder, unspecified F41.9 [place] [address] [place] [address] 69507- 0608 08 Mar, 2016 Panic disorder with agoraphobia F40.01 ; Bipolar 1 disorder , depressed, moderate F31.32 and Chronic post-traumatic stress disorder (PTSD) F43.12 [place] [address] [place] [address] 24157- 0836 Mar, [facility] [address] [place] [id number] [place] [address] 84461- 0407 Mar, Dental caries K02.9 [facility] [address] [place] [id number] [place] [address] 14786- 2537 Feb, Lumbago with sciatica, left side M54.42 ; Lumbago with sciatica, right side M54.41 and Other chronic pain G89.29 [place] [address] [place] [id number] [place] [address] 69397- 0044 Feb, [facility] [address] 00635- 3034 Feb, [place] [address] 60259- 3386 Feb, Bipolar I disorder with depression F31.9 ; PTSD (post- traumatic stress disorder) F43.10 and Mood disorder F39 [place] [address] 98542- 7860 Feb, [place] [address] 22448- 2124 Feb, Dental examination Z01.20 [place] [address] 31610- 5823 07 Feb, 2016 [facility] [address] [place] [id number] [place] [address] 82473 -9615 Feb, Acute bronchitis, unspecified organism J20.9 [place] [address] [place] [id number] [place] [address] 05715- 5150 26 Jan, 2016 Mood disorder F39 ; Migraine without aura and without status migrainosus, not intractable G43.009 ; Irritable bowel syndrome, unspecified type K58.9 ; Diabetes E11.9 and Encounter for immunization Z23 [place] [address] [place] [id number] [place] [address] 34463- 0964 15 Jan, 2016 [place] [address] [place] [id number] [place] [address] 51187- 3456 06 Jan, 2016 [place] [address] [place] [id number] [place] [address] 62797- 6474 Jan, [facility] [address] [place] [id number] [place] [address] 84392- 5424 Jan, [facility] [address] [place] [id number] [place] [address] 62123- 0669 Jan, [facility] [address] [place] [id number] [place] [address] 42101- 9862 Dec, Bipolar I disorder with depression F31.9 ; PTSD (post- traumatic stress disorder) F43.10 and Panic disorder with agoraphobia F40.01 [facility] [address] [place] [id number] [place] [address] 89621- 5227 Dec, Chronic obstructive pulmonary disease, unspecified COPD type J44.9 ; Tremor R25.1 and Anxiety F41.9 [facility] [address] [place] [id number] [place] [address] 62043- 3965 Dec, [facility] [address] [place] [id number] [place] [address] 58560- 7095 Nov, Tremors of nervous system R25.1 and Cramping of feet R25.2 [facility] [id number] [place] [address] 93822- 2425 Nov, [facility] [address] [place] [id number] [place] [address] 66062- 9889 Nov, [facility] [address] [place] [id number] [place] [address] 05546- 4008 Oct, Chronic obstructive pulmonary disease, unspecified J44.9 [facility] [address] [place] [id number] [place] [address] 14517- 3614 Oct, [facility] [address] [place] [id number] [place] [address] 46666- 3960 Oct, Tremor R25.1 [facility] [address] [place] [id number] [place] [address] 32370- 4306 Oct, Bipolar I disorder with depression F31.9 ; Diabetes E11.9 ; PTSD (post-traumatic stress disorder) F43.10 and Panic disorder with agoraphobia F40.01 [place] [address] [place] [id number] [place] [address] 51784- 4898 Oct, Mood disorder F39 [place] [address] [place] [id number] [place] [address] 80805- 8361 September, [place] [address] 30977- 8380 September, Diabetes E11.9 ; Bipolar I disorder with depression F31.9 ; PTSD (post-traumatic stress disorder) F43.10 and Panic disorder with agoraphobia F40.01 [place] [address] [place] [id number] [place] [address] [phone]- 1709 September, Mood disorder F39 ; Schizoaffective disorder, unspecified type F25.9 ; Arthritis M19.90 ; Tremor R25.1 ; Acute non-recurrent frontal sinusitis J01.10 and Blood in stool K92.1 [place] [address] [place] [id number] [place] [address] [phone] September, [place] [address] [place] [id number] [place] [address] 05972- 8499 September, Chronic obstructive pulmonary disease, unspecified J44.9 [place] [address] [place] [id number] [place] [address] 52141- 1330 September, Diabetes E11.9 [place] [address] [place] [id number] [place] [address] [phone]- [phone] Aug, Other bipolar disorder F31.89 and Anxiety disorder, unspecified F41.9 [facility] [id number] [place] [address] 15145- 8955 Aug, [facility] [id number] [place] [address] 34106- 8584 Aug, Diabetes E11.9 [facility] [address] [id number] [address] 90[address] 18 Aug, 2015 [facility] [id number] [place] [address] 37808- 6167 14 Aug, 2015 Diabetes E11.9 ; Fatigue R53.83 and Dizziness R42 [facility] [id number] [place] [address] 13103- 8753 Aug, Other bipolar disorder F31.89 [facility] [id number] [place] [address] 77158- 4797 Aug, Generalized anxiety disorder F41.1 [facility] [id number] [place] [address] 08648- 1764 Aug, Other bipolar disorder F31.89 and Anxiety disorder, unspecified F41.9 [facility] [id number] [place] [address] 72315- 3184 Aug, [facility] [id number] [place] [address] 95748- 9409 Jul, [facility] [id number] [place] [address] 25433- 0477 24 Jul, 2015 [facility] [id number] [place] [address] 82609- 1407 Jul, Bronchitis J40 [facility] [id number] [place] [address] 39372- 0852 Jul, Anxiety disorder F41.9 [facility] [id number] [place] [address] 38684- 2367 Jul, Other bipolar disorder F31.89 and Anxiety disorder, unspecified F41.9 [facility] [id number] [place] [address] 51688- 7428 Jul, Other bipolar disorder F31.89 and Fibromyalgia M79.7 [facility] [address] [address] 8723 Jul, [facility] [id number] [place] [address] 55991- 7788 Jul, [facility] [id number] [place] [address] 42937- 1879 Jul, [facility] [id number] [place] [address] 97882- 8286 Jul, Other bipolar disorder F31.89 and Anxiety disorder, unspecified F41.9 [facility] [id number] [place] [address] 68246- 2559 Jun, GERD (gastroesophageal reflux disease) K21.9 [facility] [id number] [place] [address] 37373- 3645 Jun, [facility] [id number] [place] [address] 37264- 6811 May, [facility] [address] [address]- 6021 May, Diabetes E11.9 ; Back pain M54.9 ; GERD (gastroesophageal reflux disease) K21.9 ; Hypertension I10 and Peripheral neuropathy G62.9 [facility] [id number] [place] [address] 83743- 5530 Mar, [facility] [id number] [place] [address] 86164- 0225 Mar, [facility] [id number] [place] [address] 30020- 1633 Mar, Acute sinusitis J01.90 and Otitis media, left H66.92 [facility] [id number] [place] [address] 90280- 7755 Feb, [facility] [id number] [place] [address] 18332- 7967 Feb, [facility] [id number] [place] [address] 93280- 9471 Feb, [facility] [id number] [place] [address] 50755- 8790 Feb, [facility] [id number] [place] [address] 13466- 5123 Jan, [facility] [id number] [place] [address] 69550- 4100 Jan, Diabetes 250.00 and Back pain 724.5 [facility] [id number] [place] [address] 43176- 1055 Jan, [facility] [id number] [place] [address] 45060- 3866 Dec, Diabetes 250.00 ; Benign essential hypertension 401.1 and Allergic rhinitis 477.9 [facility] [id number] [place] [address] 91555- 9522 Dec, [facility] [id number] [place] [address] 67396- 5589 Dec, [facility] [id number] [place] [address] 67531- 8951 Dec, Psychosis 298.9 [facility] [id number] [place] [address] 31486- 4039 Dec, Medication side effect 995.20 and Generalized anxiety disorder 300.02 [facility] [id number] [place] [address] 10109- 9195 Dec, Acquired cognitive dysfunction 294.9 [facility] [id number] [place] [address] 49062- 7394 Dec, [facility] [id number] [place] [address] 56723- 2302 Dec, Unspecified myalgia and myositis 729.1 and Generalized anxiety disorder 300.02 [facility] [id number] [place] [address] 26821- 3016 Nov, [facility] [id number] [place] [address] 22156- 7754 Nov, [facility] [address] [address]- 2248 Nov, [facility] [id number] [place] [address] 03721- 5936 Nov, Upper respiratory infection 465.9 and Chronic airway obstruction, not elsewhere classified 496 [facility] [id number] [place] [address] 44852- 5375 Nov, Hyponatremia 276.1 [facility] [id number] [place] [address] 34932- 5386 Oct, [facility] [id number] [place] [address] 65225- 6472 Oct, [facility] [id number] [place] [address] 82392- 7321 Oct, [facility] [id number] [place] [address] 22693- 5621 Oct, [facility] [address] [place] [address] 86827- 1947 Oct, Hyponatremia 276.1 [facility] [id number] [place] [address] 86305- 0340 Oct, [facility] [address] [address]- 1001 Oct, [facility] [address] [address]- 2300 Oct, Generalized anxiety disorder 300.02 [facility] [address] [address]- 0667 Oct, Generalized anxiety disorder 300.02 and Diabetes 250.00 [facility] [address] [address]- 6098 14 Aug, 2014 [facility] [address] [address]- 9739 Aug, [facility] [place] [facility] [address] [id number] [place] [address]- 8312 Jul, [facility] [place] [facility] [address] [id number] [place] [address]- 2924 Jul, [facility] [place] [facility] [address] [id number] [place] [address]- 4626 Jun, [facility] [place] [facility] [address] [id number] [place] [address]- 9929 Jun, [facility] [place] [facility] [address] [id number] [place] [address]- 4966 Jun, [facility] [place] [facility] [address] [id number] [place] [address]- 3230 Jun, [facility] [place] [facility] [address] [id number] [place] 2469 Jun, [facility] [place] [facility] [address] [id number] [place] [address]- 4650 May, [facility] [place] [facility] [address] [id number] [place] [address]- 8002 May, [facility] [place] [facility] [address] [id number] [place] [address]- 7768 Apr, [facility] [place] [facility] [address] [id number] [place] [address]- 5531 Apr, [facility] [place] [facility] [address] [id number] [place] [address]- 6386 18 Apr, 2013 [facility] [place] [facility] [address] [id number] [place] [address]- 6499 18 Apr, 2013 [facility] [place] [facility] [address] [id number] [place] 4066 Apr, [facility] [place] [facility] [address] [id number] [place] [address]- 1932 17 Apr, 2013 [facility] [place] [facility] [address] [id number] [place] [address]- 2792 Apr, [facility] [place] [facility] [address] [id number] [place] [address]- 1980 Apr, [facility] [place] [facility] [address] [id number] [place] [address]- 2314 Feb, [facility] [place] [facility] [address] [id number] [place] [address]- 3254 Feb, [facility] [place] [facility] [address] [id number] [place] [address]- 2384 Jan, [facility] [place] [facility] [address] [id number] [place] [address]- 4403 Jan, [facility] [place] [facility] [address] [id number] [place] [address]- 5526 Dec, [facility] [place] [facility] [address] [id number] [place] [address]- 3358 Dec, [facility] [place] [facility] [address] [id number] [place] [address]- 8434 Dec, [facility] [place] [facility] [address] [id number] [place] [address]- 9539 Nov, [facility] [place] [facility] [address] [id number] [place] [address]- 2084 Nov, [facility] [place] [facility] [address] [id number] [place] [address]- 2344 Nov, [facility] [place] [facility] [address] [id number] [place] [address]- 7289 Oct, [facility] [place] [facility] [address] [id number] [place] [address]- 2504 Oct, [facility] [place] [facility] [address] [id number] [place] [address]- 8964 Oct, [facility] [place] [facility] [address] [id number] [place] [address]- 6577 September, [facility] [place] [facility] [address] [id number] [place] [address]- 8432 September, [facility] [address] [id number] [place] [address]- 6061 September, [facility] [place] [facility] [address] [id number] [place] [address]- 9355 Aug, [facility] [address] [id number] [place] [address]- 7177 Aug, [facility] [place] [facility] [address] [id number] [place] [address]- 8761 Aug, [facility] [address] [id number] [place] [address]- 0093 16 Aug, 2011 [facility] [address] [id number] [place] [address]- 1495 Jul, [facility] [address] [id number] [place] [address]- 6926 Jun, [facility] [address] [id number] [place] [address]- 7283 14 Jun, 2011 [facility] [address] [id number] [place] [address]- 1087 Jun, [facility] [address] [id number] [place] [address]- 3149 Jun, [facility] [address] [id number] [place] [address]- 9656 Jun, [facility] [address] [id number] [place] [address]- 5085 May, [facility] [place] [facility] [address] [id number] [place] [address]- 6525 May, [facility] [place] [facility] [address] [id number] [place] [address]- 5844 May, [facility] [place] [facility] [address] [id number] [place] [address]- 7816 May, [facility] [place] [facility] [address] [id number] [place] [address]- 1394 Apr, [facility] [place] [facility] [address] [id number] [place] [address]- 5972 Apr, [facility] [place] [facility] [address] [id number] [place] [address]- 7421 Apr, [facility] [place] [facility] [address] [id number] [place] [address]- 6544 Mar, [facility] [place] [facility] [address] [id number] [place] [address]- 1134 Mar, [facility] [place] [facility] [address] [id number] [place] [address]- 6256 Mar, [facility] [place] [facility] [address] [id number] [place] [address]- 7081 Feb, [facility] [place] [facility] [address] [id number] [place] [address]- 0185 Feb, [facility] [place] [facility] [address] [id number] [place] [address]- 1917 Feb, [facility] [place] [facility] [address] [id number] [place] [address]- 1721 Nov, [facility] [place] [facility] [address] [id number] [address]- 7725 September, [facility] [place] [facility] [address] [id number] [address]- 0965 Aug, [facility] [place] [facility] [address] [id number] [place] [address]- 4307 14 Jul, 2010 [facility] [place] [facility] [address] [id number] [place] [address]- 4165 May, [facility] [place] [facility] [address] [id number] [place] [address]- 1826 Apr, [facility] [place] [facility] [address] [facility] [id number] [place] [address] 3054 Apr, [facility] [address] [facility] [id number] 6805 Apr, [facility] [address] [facility] [id number] [place] 3897 Apr, [facility] [address] [facility] [id number] [address]- 9488 Apr, IMMUNIZATIONS No Known Immunizations SOCIAL HISTORY Never Assessed [facility]11/2017 PLAN OF CARE VITAL SIGNS MEDICATIONS Medication Instructions Dosage Frequency Start Date End Date Duration Status Lorazepam 2 MG Orally in the AM and noon and 4pm 1 tablet Jul, 30 days Active Loxapine Succinate 10 mg Orally twice a day 1 capsule 12h September, 30 days Active RESULTS No Results PROCEDURES [...]
--- OUTSIDE RECORDS SUMMARY | 2017-11-18 07:23 | XMS REPORT ---
Author Author WHIT GANDHI 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 Name Role Phone WHIT GANDHI Unavailable PROBLEMS Type Condition ICD9-CM Code YPL64-PM Code Onset Dates Condition Status SNOMED Code Problem Bipolar 1 disorder, depressed, moderate F31.32 Active 72747114 Problem Bipolar affective disorder, remission status unspecified F31.9 Active 38445141 Problem Chronic post-traumatic stress disorder (PTSD) F43.12 Active 809367999 Problem Moderate persistent asthma without complication J45.40 Active 039529280 Problem GERD (gastroesophageal reflux disease) K21.9 Active 509452379 Problem Mild persistent asthma without complication J45.30 Active 145603887 Problem Back pain M54.9 Active 895334366 Problem Nondependent tobacco use disorder 305.1 Active 916866414 Problem Bipolar I disorder with depression F31.9 Active 92953028 Problem Attention deficit hyperactivity disorder (ADHD), predominantly inattentive type F90.0 Active 31592725 Problem Bipolar 1 disorder, depressed, partial remission F31.75 Active 24460993 Problem Acute non-recurrent maxillary sinusitis J01.00 Active 73778913 Problem Anxiety disorder, unspecified F41.9 Active 093050521 Problem Other bipolar disorder F31.89 Active 28774622 Problem Diabetes E11.9 Active 81449169 Problem Hypertension I10 Active 79446598 Problem Chronic obstructive pulmonary disease, unspecified J44.9 Active 79782460 Problem Lumbago with sciatica, left side M54.42 Active 512855659 Problem Fibromyalgia M79.7 Active 26144930 Problem Lumbago with sciatica, right side M54.41 Active 476140967 Problem Panic disorder with agoraphobia F40.01 Active 29965458 Problem Other chronic pain G89.29 Active 63702522 ALLERGIES Substance Reaction Event Type Date Status Penicillin V Potassium Unknown Drug Allergy September, Active Effexor anaphylaxis Drug Allergy September, Active Darvocet-N 50 Unknown Drug Allergy September, Active Cefdinir Swelling Drug Allergy September, Active Benadryl vomiting/swelling Drug Allergy September, Active SOCIAL HISTORY Never Assessed PLAN OF CARE Activity Details Follow Up 4 Weeks Reason:htn. VITAL SIGNS Height 66 in 2016-10-01 Weight 115.2 lbs 2016-10-01 Temperature 98.4 degrees Fahrenheit 2016-10-01 Heart Rate 108 bpm 2016-10-01 Respiratory Rate 18 2016-10-01 BMI 18.59 kg/m2 2016-10-01 Blood pressure systolic 162 mmHg 2016-10-01 Blood pressure diastolic 88 mmHg 2016-10-01 MEDICATIONS Medication Instructions Dosage Frequency Start Date End Date Duration Status Uxskuwzrqo-TSQO-Xdduwhmg 50-325-40 MG Orally every 6 hours as needed for headaches 1 capsule as needed Jun, 30 days Active ProAir HFA 108 (90 Base) MCG/ACT Inhalation 4 times a day 2 puffs as needed 6h Oct, Active Clonidine HCl 0.1 MG Orally 3 times a day 1 tablet 8h Oct, 28 days Active Nebulizer 1 as directed Jul, Active Trazodone HCl 50 mg Orally Once a day 2 tablets 24h Jan, 30 days Active Levemir FlexTouch 100 UNIT/ML Subcutaneous Once a day 19 units 24h September, 30 days Active FiberCon 625 MG Orally Four times a day 1 tablet as needed 6h Active Linzess 290 MCG Orally Once a day 1 capsule 24h 28 Jun, 2016 Dec, 30 days Active Dicyclomine HCl 20 mg 1 tablet 6h Active Baclofen 20 MG Orally Three times a day 1 tablet with food or milk 8h 30 Active Flonase 50 mcg/actuation 1 spray in each nostril 24h Apr, Active Metformin HCl 1000 MG Orally Twice a day 1 tablet with meals 12h Aug, 30 day(s) Active Cetirizine HCl 10 mg Orally Once a day 1 tablet 24h Apr, 30 day (s) Active Lorazepam 2 MG Orally in the AM and 12noon and 1 full tablet 4pm 1 tablet Jul, Active [place] 7.5-325 MG Orally 3 times a day 1 tablet as needed 8h September, Oct, 28 days Active Insulin Pen Needle 32G X 6 MM as directed 24h Oct, Active Multivitamin Adult - Active Loxapine Succinate 10 mg Orally twice a day 1 capsule 12h September, 30 days Active Probiotic - Orally once a day 24h Active Metoprolol Tartrate 25 MG Orally Twice a day 1 tablet with food 12h September 30 day(s) Active Gabapentin 800 MG Orally Three times a day 1 tablet 8h Jul, Active Zocor 10 mg Orally Once a day 1 tablet in the evening 24h 30 Active Mucinex 600 MG Orally every 12 hrs 1 tablet as needed 12h Active Gas-X 80 mg Dec, Active Glucosamine 1000 MG Orally Once a day 2 capsules 24h Active Lamictal 100 mg Orally 2 times a day 1 tablet 12h September, Active Protonix 40 mg Orally Once a day 1 tablet 24h Active Calcium 600 + D 600-200 MG-UNIT Active BusPIRone HCl 15 MG Orally 3 times a day 1 tablet 8h Jan, 30 days Active Xopenex 1.25 MG/3ML Inhalation 4 times a day prn 3 ml Dec, Active Adderall 10 mg Orally Once a day 1 tablet in the morning 24h September, Active Benztropine Mesylate 0.5 MG Orally twice a day Q AM and 4pm for restlessness 1 tablet Mar, Active Lisinopril 30 MG Orally Once a day 1 tablet 24h Active RESULTS No Results PROCEDURES Procedure Date Ordered Result Body Site GLYCATED HEMOGLOBIN TEST October 01, 2016 [facility] VISIT ESTABLISHED PATIENT October 01, 2016 IMMUNIZATIONS No Known Immunizations MEDICAL (GENERAL) HISTORY [...]
[2017-11-18 07:25] LABS: ALANINE AMINOTRANSFERASE 34 U/L (0-55); ALBUMIN 4.8 GM/DL (3.2-4.5); ALKALINE PHOSPHATASE 55 U/L (40-136); BILIRUBIN,TOTAL 0.4 MG/DL (0.1-1.0); BUN/CREATININE RATIO 13; CALCIUM 10.3 MG/DL (8.5-10.1); CARBON DIOXIDE 24 MMOL/L (21-32); CHLORIDE 92 MMOL/L (98-107); GFR ESTIMATED > 60; GLUCOSE 87 MG/DL (70-105); POTASSIUM 4.3 MMOL/L (3.6-5.0); SODIUM 128 MMOL/L (135-145); TOTAL PROTEIN 7.2 GM/DL (6.4-8.2)
--- OUTSIDE RECORDS SUMMARY | 2017-11-18 07:25 | XMS REPORT ---
Author Author WHIT GANDHI [facility] Address [address] [place] [address] Care Team Providers Care Program Eligibility Specialist Name Role Phone WHIT GANDHI Unavailable PROBLEMS Type Condition ICD9-CM Code LVO54-KL Code Onset Dates Condition Status SNOMED Code Problem Back pain M54.9 Active 736963349 Problem GERD (gastroesophageal reflux disease) K21.9 Active 066068495 Problem Diabetes E11.9 Active 25038135 Problem Hypertension I10 Active 82806576 Problem Anxiety disorder, unspecified F41.9 Active 827586280 Problem Other bipolar disorder F31.89 Active 40488190 Problem Mild persistent asthma without complication J45.30 Active 019100701 Problem Fibromyalgia M79.7 Active 35411630 Problem Moderate persistent asthma without complication J45.40 Active 604745971 Problem Panic disorder with agoraphobia F40.01 Active 96880125 Problem Panlobular emphysema J43.1 Active 6925146 Problem Migraine without aura and without status migrainosus, not intractable G43.009 Active 103380395 Problem Akathisia G25.71 Active 651270977 Problem Schizoaffective disorder, bipolar type F25.0 Active 36422553 Problem Irritable bowel syndrome with both constipation and diarrhea K58.2 Active 28028031 Problem Lumbago with sciatica, left side M54.42 Active 334354327 Problem Other chronic pain G89.29 Active 28670786 Problem Chronic obstructive pulmonary disease, unspecified J44.9 Active 82596418 Problem Fibrocystic disease of left breast N60.12 Active 99179953 Problem Fibrocystic disease of right breast N60.11 Active 69123605 Problem Irritable bowel syndrome with constipation K58.1 Active 193274506 Problem Arthritis M19.90 Active 3044938 Problem Chronic post-traumatic stress disorder (PTSD) F43.12 Active 733243863 Problem Bipolar affective disorder, remission status unspecified F31.9 Active 72817768 Problem Lumbago with sciatica, right side M54.41 Active 024265696 Problem Bipolar 1 disorder, depressed, moderate F31.32 Active 03330374 Problem Acute non-recurrent maxillary sinusitis J01.00 Active 06974763 Problem Bipolar 1 disorder, depressed, partial remission F31.75 Active 24944403 Problem Attention deficit hyperactivity disorder (ADHD), predominantly inattentive type F90.0 Active 64104930 Problem Bipolar I disorder with depression F31.9 Active 59665343 ALLERGIES No Information ENCOUNTERS Encounter Location Date Diagnosis [place] [address] 093474- 3165 Nov, [place] [address] 906719- 3796 September, [place] [address] 186122- 6826 Aug, [place] [address] 19093- 8125 Aug, Breast mass, right N63.10 [place] [address] 59016- 5343 Aug, Breast lump N63.0 [place] [address] 38223- 9450 Aug, [place] [address] 99279- 6023 Aug, Bipolar affective disorder, remission status unspecified F31.9 and Diabetes E11.9 [place] [address] 89703- 8869 Aug, Diabetes E11.9 ; Schizoaffective disorder, bipolar type F25.0 ; Pharyngitis due to other organism J02.8 ; Panlobular emphysema J43.1 and Irritable bowel syndrome with both constipation and diarrhea K58.2 [place] [address] 59981- 0647 Aug, Abnormal mammogram R92.8 [place] [address] [place] [address]- 6525 13 Aug, 2017 [facility] [address] [place] [id number] [place] [address] 89305- 3055 Aug, Bipolar 1 disorder, depressed, moderate F31.32 ; Panic disorder with agoraphobia F40.01 and Chronic post-traumatic stress disorder ( PTSD) F43.12 [facility] [address] [place] [id number] [place] [address] 24619- 5921 Aug, [facility] [address] [place] [id number] [place] [address] 46793- 4277 Aug, [facility] [address] 72586- 2470 Aug, [facility] [address] [place] [id number] [place] [address] 83066- 6137 Jul, [facility] [address] 14685- 1926 Jul, Mild persistent asthma without complication J45.30 [facility] [address] [place] [id number] [place] [address] 63250- 4583 19 Jul, 2017 Mild persistent asthma without complication J45.30 [facility] [address] [place] [id number] [place] [address] 17152- 0552 15 Jul, 2017 Bipolar affective disorder, remission status unspecified F31.9 ; Diabetes E11.9 and Irritable bowel syndrome with constipation K58.1 [facility] [address] [place] [id number] [place] [address] 73722- 4616 Jul, [facility] [address] [place] [id number] [place] [address] 91623- 3780 Jul, [facility] [address] [place] [id number] [place] [address] 66714- 7799 Jul, Frequent headaches R51 [facility] [address] [place] [id number] [place] [address] 66000- 2138 Jul, [facility] [address] [place] [address] 8786 Jul, [facility] [address] [place] [id number] [place] [address] 99617- 1051 Jul, [facility] [address] [place] [id number] [place] [address] 53116- 9766 Jul, Frequent headaches R51 ; Fibrocystic disease of left breast N60.12 ; Fibrocystic disease of right breast N60.11 and Diabetes E11.9 [facility] [address] [place] [id number] [place] [address] 98135- 0284 Jul, [place] [address] [place] [id number] [place] [address] 19923- 5734 Jul, [facility] [address] [place] [id number] [place] [address] 10011- 3103 Jun, Exudative tonsillitis J03.90 [place] [address] [place] [id number] [place] [address] 05798- 3174 Jun, [facility] [address] [place] [id number] [place] [address] 28372- 8167 Jun, [place] [address] [place] [id number] [place] [address] 56771- 2893 15 Jun, 2017 Mild persistent asthma without complication J45.30 ; Chronic obstructive pulmonary disease, unspecified COPD type J44.9 and Exudative tonsillitis J03.90 [place] [address] [place] [id number] [place] [address] 78986- 9072 13 Jun, 2017 Encounter for immunization Z23 [place] [address] [place] [id number] [place] [address] 28541- 9114 Jun, [place] [address] [place] [id number] [place] [address] 55758- 3112 Jun, [facility] [address] [place] [id number] [place] [address] 79627- 1284 Jun, [facility] [address] [place] [id number] [place] [address] 31400 -3309 06 Jun, 2017 Tonsillitis J03.90 [facility] [address] 41926- 5269 05 Jun, 2017 [place] [address] 37552- 3356 03 Jun, 2017 Acute non-recurrent maxillary sinusitis J01.00 [place] [address] 45775- 6568 02 Jun, 2017 [place] [address] 55952- 6055 May, [place] [address] 29237- 0132 May, [place] [address] 09172- 8678 May, GERD (gastroesophageal reflux disease) K21.9 [place] [address] 87501- 8847 May, Migraine without aura and without status migrainosus, not intractable G43.009 [place] [address] [place] [id number] [place] [address] 01973- 7097 May, [place] [address] [place] [id number] [place] [address] 68253- 9669 May, [place] [address] 23695- 9975 May, Panlobular emphysema J43.1 and Acute non-recurrent maxillary sinusitis J01.00 [place] [address] 19515- 4242 04 May, 2017 Bipolar 1 disorder, depressed, moderate F31.32 ; Panic disorder with agoraphobia F40.01 and Akathisia G25.71 [place] [address] 91418- 1376 Apr, [facility] [address] [place] [id number] [place] [address] 62988- 4535 Apr, [facility] [address] [place] [id number] [place] [address] 14192- 8380 Apr, Acute non-recurrent maxillary sinusitis J01.00 [facility] [address] 84271- 3331 07 Apr, 2017 Panlobular emphysema J43.1 [facility] [address] [place] [id number] [place] [address] 29086- 7456 Apr, [facility] [address] 62861 -0930 Apr, Exudative tonsillitis J03.90 and Sore throat J02.9 [place] [address] 75308- 6413 17 Mar, 2017 [facility] [address] [place] [id number] [place] [address] 30830- 5275 15 Mar, 2017 Acute non-recurrent maxillary sinusitis J01.00 [place] [address] [place] [id number] [place] [address] 59418- 5447 Mar, [place] [address] [place] [id number] [place] [address] 01515- 0528 Mar, Panlobular emphysema J43.1 and Diabetes E11.9 [facility] [address] [place] [id number] [place] [address] 89560- 2214 Mar, [facility] [address] [place] [id number] [place] [address] 39572 -0108 Feb, Wheezing R06.2 and Acute recurrent pansinusitis J01.41 [facility] [address] [place] [id number] [place] [address] 96179- 8073 Feb, [facility] [address] 42017- 6778 Feb, Acute non-recurrent maxillary sinusitis J01.00 [facility] [address] [place] [id number] [place] [address] 7996 Feb, Chronic obstructive pulmonary disease, unspecified J44.9 [facility] [address] [place] [address]- 8239 Feb, Hypoxemia R09.02 and Chronic obstructive pulmonary disease, unspecified J44.9 [place] [address] 0442 28 Jan, 2017 Bipolar 1 disorder, depressed, moderate F31.32 ; Panic disorder with agoraphobia F40.01 ; Chronic post-traumatic stress disorder (PTSD ) F43.12 ; Diabetes E11.9 and Moderate persistent asthma without complication J45.40 [place] [address] 36016- 3504 Jan, [place] [address] [place] [address]- 6986 Jan, Acute non-recurrent maxillary sinusitis J01.00 [place] [address] 264226- 5971 18 Jan, 2017 [place] [address] 63858- 5507 Jan, [place] [address] [place] 997667- 0506 Jan, Moderate persistent asthma without complication J45.40 and Hypoxemia R09.02 [place] [address] [place] [id number] [place] [address] 46059- 2545 11 Jan, 2017 Moderate persistent asthma without complication J45.40 and Hypoxemia R09.02 [place] [address] [place] [id number]- 2544 Jan, [place] [address] [place] 43997125- 4002 Dec, Acute non-recurrent maxillary sinusitis J01.00 [facility] [address] [place] [address] 87088- 2244 Dec, Chronic obstructive pulmonary disease, unspecified J44.9 [facility] [address] [place] [id number] [place] [address] 02475- 4410 Dec, [facility] [address] [place] [id number] [place] [address] 75279- 6204 Dec, Mild persistent asthma without complication J45.30 and Other chronic pain G89.29 [facility] [address] [place] [id number] [place] [address] 47496- 5675 Nov, [facility] [address] [place] [id number] [place] [address] 25711- 7076 Nov, Acute non-recurrent maxillary sinusitis J01.00 [facility] [address] [place] [id number] [place] [address] 48451- 5867 Nov, [facility] [address] [place] [id number] [place] [address] 66202- 5750 Nov, [facility] [address] [place] [id number] [place] [address] 82672- 5513 Oct, [facility] [address] [place] [id number] [place] [address] 55902- 4107 Oct, Bipolar 1 disorder, depressed, partial remission F31.75 ; Panic disorder with agoraphobia F40.01 and Chronic post-traumatic stress disorder (PTSD) F43.12 [facility] [address] [place] [address] 67058- 6546 Oct, Acute non-recurrent maxillary sinusitis J01.00 [facility] [address] [place] [id number] [place] [address] 54802- 9072 Oct, [facility] [address] [place] [id number] [place] [address] 28715- 6806 Oct, Diabetes E11.9 [facility] [address] [place] [id number] [place] [address] 77326- 8331 September, Diabetes E11.9 [facility] [address], [place] [address]- 8461 September, Diabetes E11.9 and Sinus tachycardia R00.0 [facility] [address] [place] [address] [address]- 7296 September, [facility] [address] [place] [id number] [place] [address] 30798- 6448 September, [facility] [address] [place] [id number] [place] [address] 61698- 6050 Aug, Diabetes E11.9 and Lumbago with sciatica, right side M54.41 [facility] [address] [place] [id number] [place] [address] 39073- 8659 Aug, [facility] [address] [place] [id number] [place] [address] 05555- 6536 Jul, Bipolar 1 disorder, depressed, moderate F31.32 ; Panic disorder with agoraphobia F40.01 and Chronic post-traumatic stress disorder ( PTSD) F43.12 [facility] [address] [place] [id number] [place] [address] 47924- 4817 Jul, Sore throat J02.9 [facility] [address], [place] [address]- 0101 Jul, [facility] [address], [place] [address]- 3984 Jul, [facility] [address], [place] [address]- 2786 Jul, [facility] [address] [place] [id number] [place] [address] 66294- 3874 Jul, [facility] [address], [place] [address]- 0807 Jul, Sore throat J02.9 and Pharyngitis, unspecified etiology J02.9 [facility] [address], [place] [address]- 7278 Jun, [facility] [address], [place] [address]- 5283 Jun, Diabetes E11.9 [facility] [address], [place] [address]- 7496 Jun, [facility] [address] [place] [id number] [place] [address] 70712- 9754 Jun, [facility] [address], [place] [address]- 4159 Jun, [facility] [address] [place] [address] 83263- 9390 Jun, [facility] [address] [place] [address] 81867- 1267 Jun, [facility] [address], [place] [address]- 9040 Jun, [facility] [address], [place] [address]- 6844 Jun, [facility] [address], [place] [address]- 6971 Jun, [facility] [address], [place] [address]- 7318 May, Diabetes E11.9 ; Other chronic pain G89.29 ; Acute recurrent maxillary sinusitis J01.01 ; Bipolar I disorder with depression F31.9 and Anxiety disorder, unspecified F41.9 [facility] [address], [place] [address]- 3281 May, [facility] [address], [place] [address]- 2677 May, Diabetes E11.9 ; Bipolar I disorder with depression F31.9 ; Anxiety disorder, unspecified F41.9 ; Other chronic pain G89.29 and Acute recurrent maxillary sinusitis J01.01 [place] [address] [place] [id number] [place] [address] 31275- 2876 May, [place] [address] [place] [id number] [place] [address] 15884- 405 May, Attention deficit hyperactivity disorder (ADHD), predominantly inattentive type F90.0 [place] [address] 89198- 5830 May, [place] [address] [place] [id number] [place] [address] 88511- 9740 Apr, Attention deficit hyperactivity disorder (ADHD), predominantly inattentive type F90.0 and Non-seasonal allergic rhinitis due to other allergic trigger J30.89 [place] [address] [place] [id number] [place] [address] 00201- 7700 Apr, Bipolar 1 disorder, depressed, moderate F31.32 ; Panic disorder with agoraphobia F40.01 and Chronic post-traumatic stress disorder ( PTSD) F43.12 [place] [address] [place] [id number] [place] [address] 50560- 5283 06 Apr, 2016 Dental examination Z01.20 [place] [address] [place] [id number] [place] [address] 04295- 9811 Mar, [place] [address] [place] [id number] [place] [address] 29403- 6615 Mar, [place] [address] [place] [id number] [place] [address] 66694- 6718 Mar, Bipolar I disorder with depression F31.9 and Anxiety disorder, unspecified F41.9 [place] [address] [place] [id number] [place] [address] 31918- 5987 08 Mar, 2016 Panic disorder with agoraphobia F40.01 ; Bipolar 1 disorder , depressed, moderate F31.32 and Chronic post-traumatic stress disorder (PTSD) F43.12 [place] [address] [place] [id number] [place] [address] 26225- 3979 Mar, [facility] [address] [place] [id number] [place] [address] 67673- 3311 02 Mar, 2016 Dental caries K02.9 [place] [address] [place] [id number] [place] [address] 78412- 3501 24 Feb, 2016 Lumbago with sciatica, left side M54.42 ; Lumbago with sciatica, right side M54.41 and Other chronic pain G89.29 [place] [address] [place] [id number] [place] [address] 82247- 4751 17 Feb, 2016 [place] [address] 81304- 8240 14 Feb, 2016 [place] [address] [place] [id number] [place] [address] 12281- 3963 13 Feb, 2016 Bipolar I disorder with depression F31.9 ; PTSD (post- traumatic stress disorder) F43.10 and Mood disorder F39 [place] [address] [place] [id number] [place] [address] 33950- 5853 13 Feb, 2016 [place] [address] [place] [id number] [place] [address] 71371- 4036 11 Feb, 2016 Dental examination Z01.20 [place] [address] [place] [id number] [place] [address] 04591- 9842 07 Feb, 2016 [facility] [address] [place] [id number] [place] [address] 60083 -5929 03 Feb, 2016 Acute bronchitis, unspecified organism J20.9 [place] [address] [place] [id number] [place] [address] 71407- 9639 26 Jan, 2016 Mood disorder F39 ; Migraine without aura and without status migrainosus, not intractable G43.009 ; Irritable bowel syndrome, unspecified type K58.9 ; Diabetes E11.9 and Encounter for immunization Z23 [place] [address] [place] [id number] [place] [address] 49588- 6192 15 Jan, 2016 [place] [address] [place] [address]- 6886 Jan, [facility] [address], [place] [address]- 9078 Jan, [facility] [address], [place] [address]- 5904 Jan, [facility] [address] [place] [address] 41017- 3421 Jan, [facility] [address] [place] [id number] [place] [address] 38674- 2120 Dec, Bipolar I disorder with depression F31.9 ; PTSD (post- traumatic stress disorder) F43.10 and Panic disorder with agoraphobia F40.01 [facility] [address], [place] [address]- 0772 Dec, Chronic obstructive pulmonary disease, unspecified COPD type J44.9 ; Tremor R25.1 and Anxiety F41.9 [facility] [address] [place] [address] [address]- 0104 Dec, [facility] [address] [place] [id number] [place] [address] 71735- 9114 Nov, Tremors of nervous system R25.1 and Cramping of feet R25.2 [facility] [address], [place] [address]- 6790 Nov, [facility] [address], [place] [address]- 9016 Nov, [facility] [address], [place] [address]- 6687 Oct, Chronic obstructive pulmonary disease, unspecified J44.9 [facility] [address], [place] [address]- 7460 Oct, [facility] [address], [place] [address]- 3393 Oct, Tremor R25.1 [place] [address], [place] [address]- 4854 23 Oct, 2015 Bipolar I disorder with depression F31.9 ; Diabetes E11.9 ; PTSD (post-traumatic stress disorder) F43.10 and Panic disorder with agoraphobia F40.01 [place] [address] [place] [id number] [place] [address] 80839- 4540 16 Oct, 2015 Mood disorder F39 [place] [address] [place] [id number] [place] [address] 34700- 3179 September, [place] [address] [place] [id number] [place] [address] 19435- 5362 September, Diabetes E11.9 ; Bipolar I disorder with depression F31.9 ; PTSD (post-traumatic stress disorder) F43.10 and Panic disorder with agoraphobia F40.01 [place] [address] [place] [id number] [place] [address] 76745- 5768 September, Mood disorder F39 ; Schizoaffective disorder, unspecified type F25.9 ; Arthritis M19.90 ; Tremor R25.1 ; Acute non-recurrent frontal sinusitis J01.10 and Blood in stool K92.1 [place] [address] [place] [id number] [place] [address] 15845- 2750 September, [place] [address] [place] [id number] [place] [address] 12306- 2481 September, Chronic obstructive pulmonary disease, unspecified J44.9 [place] [address] [place] [id number] [place] [address] 82674- 9921 September, Diabetes E11.9 [place] [address] [place] [id number] [place] [address] 16467- 8338 Aug, Other bipolar disorder F31.89 and Anxiety disorder, unspecified F41.9 [place] [address] [place] [id number] [place] [address] 41139- 0597 Aug, [place] [address] [place] [id number] [place] [address] 22779- 6650 Aug, Diabetes E11.9 [facility] [address] [place] [id number] [place] [address] 00720- 2556 Aug, [facility] [id number] [place] [address] [id number]- [phone] Aug, Diabetes E11.9 ; Fatigue R53.83 and Dizziness R42 [facility] [address] [address]- [address] Aug, Other bipolar disorder F31.89 [facility] [id number] [place] [address] [phone]- [phone] Aug, Generalized anxiety disorder F41.1 [facility] [id number] [place] [address] [id number]- [id number] Aug, Other bipolar disorder F31.89 and Anxiety disorder, unspecified F41.9 [facility] [id number] [place] [address] [phone] Aug, [facility] [id number] [place] [address] [id number] Jul, [facility] [id number] [place] [address] [phone] 24 Jul, 2015 [facility] [id number] [place] [address] [phone] Jul, Bronchitis J[address] [facility] [id number] [place] [address] 03267- 8452 Jul, Anxiety disorder F41.9 [facility] [id number] [place] [address] 90472- 5518 Jul, Other bipolar disorder F31.89 and Anxiety disorder, unspecified F41.9 [facility] [id number] [place] [address] 06773- 0637 Jul, Other bipolar disorder F31.89 and Fibromyalgia M79.7 [facility] [id number] [place] [address] 50481- 6157 Jul, [facility] [id number] [place] [address] 92011- 6180 Jul, [facility] [id number] [place] [address] 48234- 1312 Jul, [facility] [id number] [place] [address] 64190- 8055 Jul, Other bipolar disorder F31.89 and Anxiety disorder, unspecified F41.9 [facility] [id number] [place] [address] 84365- 8961 Jun, GERD (gastroesophageal reflux disease) K21.9 [facility] [id number] [place] [address] 38264- 9271 Jun, [facility] [id number] [place] [address] 01086- 4352 May, [facility] [id number] [place] [address] 26455- 3676 May, Diabetes E11.9 ; Back pain M54.9 ; GERD (gastroesophageal reflux disease) K21.9 ; Hypertension I10 and Peripheral neuropathy G62.9 [facility] [id number] [place] [address] 37495- 7927 Mar, [facility] [id number] [place] [address] 78179- 7219 Mar, [facility] [id number] [place] [address] 74655- 3404 Mar, Acute sinusitis J01.90 and Otitis media, left H66.92 [facility] [id number] [place] [address] 47421- 2470 Feb, [facility] [id number] [place] [address] 35778- 4258 Feb, [facility] [address] 79499- 4365 Feb, [facility] [address] [address]- 4281 Feb, [facility] [id number] [place] [address] 47608- 3890 Jan, [facility] [id number] [place] [address] 56558- 8570 Jan, Diabetes 250.00 and Back pain 724.5 [facility] [id number] [place] [address] 72371- 2055 Jan, [facility] [id number] [place] [address] 21084- 0238 Dec, Diabetes 250.00 ; Benign essential hypertension 401.1 and Allergic rhinitis 477.9 [facility] [id number] [place] [address] 73299- 5769 Dec, [facility] [id number] [place] [address] 00294- 7510 Dec, [facility] [id number] [place] [address] 87281- 3504 Dec, Psychosis 298.9 [facility] [id number] [place] [address] 85284- 8079 Dec, Medication side effect 995.20 and Generalized anxiety disorder 300.02 [facility] [id number] [place] [address] 92060- 9349 Dec, Acquired cognitive dysfunction 294.9 [facility] [id number] [place] [address] 47398- 6690 Dec, [facility] [id number] [place] [address] 10903- 8007 Dec, Unspecified myalgia and myositis 729.1 and Generalized anxiety disorder 300.02 [facility] [id number] [place] [address] 75830- 8558 Nov, [facility] [address], [place] [address]- 1212 Nov, [facility] [id number] [place] [address] 72376- 0963 Nov, [facility] [address], [place] [address]- 7386 Nov, Upper respiratory infection 465.9 and Chronic airway obstruction, not elsewhere classified 496 [facility] [id number] [place] [address] 59283- 5099 Nov, Hyponatremia 276.1 [facility] [id number] [place] [address] 15233- 5730 Oct, [facility] [id number] [place] [address] 50722- 2984 Oct, [facility] [id number] [place] [address] 49405- 0745 Oct, [facility] [id number] [place] [address] 71767- 0015 Oct, [facility] [id number] [place] [address] 19616- 2981 Oct, Hyponatremia 276.1 [facility] [address], [place] [address]- 5982 Oct, [facility] [address] [address]- 1989 Oct, [facility] [address], [place] [address]- 0149 Oct, Generalized anxiety disorder 300.02 [facility] [id number] [place] [address] 26301- 8027 Oct, Generalized anxiety disorder 300.02 and Diabetes 250.00 [facility] [address], [place] [address]- 8160 Aug, [facility] [id number] [address]- 7447 13 Aug, 2014 [facility] [address] [id number] [place] [address]- 3650 Jul, [facility] [place] [facility] [address] [id number] [place] [address]- 5423 Jul, [facility] [address] [id number] [place] [address]- 3947 Jun, [facility] [place] [facility] [address] [id number] [place] [address]- 7229 Jun, [facility] [place] [facility] [address] [id number] [place] [address]- 8201 Jun, [facility] [address] [id number] [place] [address]- 2166 Jun, [facility] [place] [facility] [address] [id number] [place] [address]- 1590 Jun, [facility] [address] [id number] [place] [address]- 0028 May, [facility] [address] [id number] [place] [address]- 2257 May, [facility] [address] [id number] [place] [address]- 7680 Apr, [facility] [place] [facility] [address] [id number] [place] [address]- 3149 Apr, [facility] [place] [facility] [address] [id number] [place] [address]- 5277 18 Apr, 2013 [facility] [place] [facility] [address] [id number] [place] [address]- 6516 18 Apr, 2013 [facility] [place] [facility] [address] [id number] [place] [address]- 4666 17 Apr, 2013 [facility] [place] [facility] [address] [id number] [place] [address]- 8276 Apr, [facility] [place] [facility] [address] [id number] [place] [address] 2543 Apr, [facility] [place] [facility] [address] [id number] [place] [address]- 0096 Apr, [facility] [place] [facility] [address] [id number] [place] [address] 2546 Feb, [facility] [place] [facility] [address] [id number] [place] [address]- 2541 Feb, [facility] [place] [facility] [address] [id number] [place] [address] 2544 Jan, [facility] [place] [facility] [address] [id number] [place] [address] 2546 Jan, [facility] [place] [facility] [address] [id number] [place] [address]- 2177 Dec, [facility] [place] [facility] [address] [id number] [place] [address]- 2527 Dec, [facility] [place] [facility] [address] [id number] [place] [address]- 3361 Dec, [facility] [place] [facility] [address] [id number] [place] [address]- 6059 Nov, [facility] [place] [facility] [address] [id number], [place] [address]- 2547 Nov, [facility] [place] [facility] [address] [id number], [place] [address]- 2544 Nov, [facility] [place] [facility] [address] [id number] [place] [address]- 2543 Oct, [facility] [place] [facility] [address] [id number] [place] [address]- 2546 Oct, [facility] [place] [facility] [address] [id number] [place] [address]- 2546 Oct, [facility] [place] [facility] [address] [id number] [place] [address]- 1151 September, [facility] [address] [id number] [place] [address]- 5572 September, [facility] [address] [id number] [place] [address]- 2166 September, [facility] [address] [id number] [place] [address]- 9916 Aug, [facility] [address] [id number] [place] [address]- 5174 Aug, [facility] [address] [id number] [place] [address]- 1162 Aug, [facility] [address] [id number] [place] [address]- 1224 16 Aug, 2011 [facility] [address] [id number] [place] [address]- 8589 Jul, [facility] [address] [id number] [place] [address]- 5885 Jun, [facility] [address] [id number] [place] [address]- 3726 14 Jun, 2011 [facility] [address] [id number] [place] [address]- 7138 13 Jun, 2011 [facility] [address] [id number] [place] [address]- 7516 07 Jun, 2011 [facility] [address] [id number] [place] [address]- 2076 Jun, [facility] [place] [facility] [address] [id number] [place] [address]- 9066 13 May, 2011 [facility] [place] [facility] [address] [id number] [place] [address]- 4436 May, [facility] [address] [id number] [place] [address]- 5091 May, [facility] [place] [facility] [address] [id number] [place] [address]- 2126 May, [facility] [place] [facility] [address] [id number] [place] [address]- 5818 Apr, [facility] [place] [facility] [address] [id number] [place] [address]- 2409 Apr, [facility] [place] [facility] [address] [id number] [place] [address]- 2769 Apr, [facility] [place] [facility] [address] [id number] [place] [address]- 7146 Mar, [facility] [place] [facility] [address] [id number] [place] [address]- 1848 Mar, [facility] [place] [facility] [address] [id number] [place] [address]- 6422 Mar, [facility] [place] [facility] [address] [id number] [place] [address]- 5711 13 Feb, 2011 [facility] [place] [facility] [address] [id number] [place] [address]- 9494 Feb, [facility] [place] [facility] [address] [id number] [place] [address]- 0299 13 Feb, 2011 [facility] [place] [facility] [address] [id number], [place] [address]- 7193 Nov, [facility] [place] [facility] [address] [id number], [place] [address]- 9023 September, [facility] [place] [facility] [address] [id number] [place] [address]- 1742 Aug, [facility] [place] [facility] [address] [id number], [place] [address]- 8848 14 Jul, 2010 [facility] [place] [facility] [address] [id number], [place] [address]- 3318 May, [facility] [place] [facility] [address] [facility] [id number] [place] [address]- 3240 Apr, [facility] [address] [facility] [id number], [place] [address]- 4903 Apr, [facility] [address] [facility] [id number], [place] [address]- 3589 Apr, [facility] [address] [facility] [id number], [place] [address]- 3021 Apr, [facility] [address] [facility] [id number], [place] [address]- 4256 Apr, IMMUNIZATIONS No Known Immunizations SOCIAL HISTORY Never Assessed REASON FOR VISIT Spiriva note/Med adjustment sent PLAN OF CARE VITAL SIGNS MEDICATIONS Medication Instructions Dosage Frequency Start Date End Date Duration Status Incruse Ellipta 62.5 MCG/INH Inhalation Once a day 1 puff 24h 18 Jan, 2017 Active RESULTS No Results PROCEDURES No Known [...]
[2017-11-18 07:26] LABS: FIBRIN DEGRADATION PRODUCTS 0.69 UG/ML (0.00-0.49); INR 0.9 (0.8-1.4); PROTHROMBIN TIME PATIENT 12.2 SEC (12.2-14.7)
--- OUTSIDE RECORDS SUMMARY | 2017-11-18 07:27 | XMS REPORT ---
Author Author WHIT GANDHI [facility] Address [address] [place] [address] Care Team Providers Care Nailing Machine Operator Automatic Name Role Phone WHIT GANDHI Unavailable PROBLEMS Type Condition ICD9-CM Code ZOA15-GC Code Onset Dates Condition Status SNOMED Code Problem Back pain M54.9 Active 196865504 Problem GERD (gastroesophageal reflux disease) K21.9 Active 409296157 Problem Diabetes E11.9 Active 71672714 Problem Hypertension I10 Active 06386867 Problem Anxiety disorder, unspecified F41.9 Active 809981254 Problem Other bipolar disorder F31.89 Active 52726668 Problem Mild persistent asthma without complication J45.30 Active 631541051 Problem Fibromyalgia M79.7 Active 64582916 Problem Moderate persistent asthma without complication J45.40 Active 372805865 Problem Panic disorder with agoraphobia F40.01 Active 05413814 Problem Panlobular emphysema J43.1 Active 5382952 Problem Migraine without aura and without status migrainosus, not intractable G43.009 Active 117636269 Problem Akathisia G25.71 Active 759389025 Problem Schizoaffective disorder, bipolar type F25.0 Active 89064042 Problem Irritable bowel syndrome with both constipation and diarrhea K58.2 Active 68412550 Problem Lumbago with sciatica, left side M54.42 Active 658973341 Problem Other chronic pain G89.29 Active 36779704 Problem Chronic obstructive pulmonary disease, unspecified J44.9 Active 63324769 Problem Fibrocystic disease of left breast N60.12 Active 50122229 Problem Fibrocystic disease of right breast N60.11 Active 81364876 Problem Irritable bowel syndrome with constipation K58.1 Active 170188459 Problem Arthritis M19.90 Active 3577541 Problem Chronic post-traumatic stress disorder (PTSD) F43.12 Active 603207085 Problem Bipolar affective disorder, remission status unspecified F31.9 Active 03784058 Problem Lumbago with sciatica, right side M54.41 Active 179332918 Problem Bipolar 1 disorder, depressed, moderate F31.32 Active 63824810 Problem Acute non-recurrent maxillary sinusitis J01.00 Active 59612943 Problem Bipolar 1 disorder, depressed, partial remission F31.75 Active 40665657 Problem Attention deficit hyperactivity disorder (ADHD), predominantly inattentive type F90.0 Active 30013680 Problem Bipolar I disorder with depression F31.9 Active 28573160 ALLERGIES No Information ENCOUNTERS Encounter Location Date Diagnosis [place] [address] 482464- 4421 Nov, [place] [address] 431869- 4770 September, [place] [address] 115951- 6371 Aug, [place] [address] 42619- 0376 Aug, Breast mass, right N63.10 [place] [address] 76604- 4365 Aug, Breast lump N63.0 [place] [address] 21251- 7687 Aug, [place] [address] 82392- 4511 Aug, Bipolar affective disorder, remission status unspecified F31.9 and Diabetes E11.9 [place] [address] 59364- 2093 Aug, Diabetes E11.9 ; Schizoaffective disorder, bipolar type F25.0 ; Pharyngitis due to other organism J02.8 ; Panlobular emphysema J43.1 and Irritable bowel syndrome with both constipation and diarrhea K58.2 [place] [address] 72082- 5699 Aug, Abnormal mammogram R92.8 [place] [address] [place] [address]- 3846 13 Aug, 2017 [facility] [address] [place] [id number] [place] [address] 71500- 4035 Aug, Bipolar 1 disorder, depressed, moderate F31.32 ; Panic disorder with agoraphobia F40.01 and Chronic post-traumatic stress disorder ( PTSD) F43.12 [facility] [address] [place] [id number] [place] [address] 05859- 0491 Aug, [facility] [address] [place] [id number] [place] [address] 45627- 9683 Aug, [facility] [address] 12712- 6823 Aug, [facility] [address] [place] [id number] [place] [address] 50180- 9608 Jul, [facility] [address] 01330- 7658 Jul, Mild persistent asthma without complication J45.30 [facility] [address] [place] [id number] [place] [address] 13748- 7656 19 Jul, 2017 Mild persistent asthma without complication J45.30 [facility] [address] [place] [id number] [place] [address] 74194- 3453 15 Jul, 2017 Bipolar affective disorder, remission status unspecified F31.9 ; Diabetes E11.9 and Irritable bowel syndrome with constipation K58.1 [facility] [address] [place] [id number] [place] [address] 62431- 4963 Jul, [facility] [address] [place] [id number] [place] [address] 18960- 0198 Jul, [facility] [address] [place] [id number] [place] [address] 03241- 6712 Jul, Frequent headaches R51 [facility] [address] [place] [id number] [place] [address] 76508- 0306 Jul, [facility] [address] [place] [address] Jul, [facility] [address] [place] [id number] [place] [address] 90420- 4540 Jul, [facility] [address] [place] [id number] [place] [address] 86847- 9760 Jul, Frequent headaches R51 ; Fibrocystic disease of left breast N60.12 ; Fibrocystic disease of right breast N60.11 and Diabetes E11.9 [facility] [address] [place] [id number] [place] [address] 08412- 0267 Jul, [place] [address] [place] [id number] [place] [address] 21709- 6121 Jul, [facility] [address] [place] [id number] [place] [address] 83015- 3221 Jun, Exudative tonsillitis J03.90 [place] [address] [place] [id number] [place] [address] 26655- 3462 Jun, [facility] [address] [place] [id number] [place] [address] 81355- 7646 Jun, [place] [address] [place] [id number] [place] [address] 96779- 5008 15 Jun, 2017 Mild persistent asthma without complication J45.30 ; Chronic obstructive pulmonary disease, unspecified COPD type J44.9 and Exudative tonsillitis J03.90 [place] [address] [place] [id number] [place] [address] 98778- 3977 13 Jun, 2017 Encounter for immunization Z23 [place] [address] [place] [id number] [place] [address] 09670- 7841 Jun, [place] [address] [place] [id number] [place] [address] 22617- 0809 Jun, [facility] [address] [place] [id number] [place] [address] 23816- 7091 Jun, [facility] [address] [place] [id number] [place] [address] 49873 -0622 06 Jun, 2017 Tonsillitis J03.90 [facility] [address] 54160- 4497 05 Jun, 2017 [place] [address] 64777- 1194 03 Jun, 2017 Acute non-recurrent maxillary sinusitis J01.00 [place] [address] 13911- 8346 02 Jun, 2017 [place] [address] 90782- 8795 May, [place] [address] 65885- 5849 May, [place] [address] 42228- 2098 May, GERD (gastroesophageal reflux disease) K21.9 [place] [address] 43692- 5265 May, Migraine without aura and without status migrainosus, not intractable G43.009 [place] [address] [place] [id number] [place] [address] 26956- 9009 May, [place] [address] [place] [id number] [place] [address] 81307- 0535 May, [place] [address] 02540- 9988 May, Panlobular emphysema J43.1 and Acute non-recurrent maxillary sinusitis J01.00 [place] [address] 50772- 1535 04 May, 2017 Bipolar 1 disorder, depressed, moderate F31.32 ; Panic disorder with agoraphobia F40.01 and Akathisia G25.71 [place] [address] 54510- 0918 Apr, [facility] [address] [place] [id number] [place] [address] 21473- 7197 Apr, [facility] [address] [place] [id number] [place] [address] 50113- 5938 Apr, Acute non-recurrent maxillary sinusitis J01.00 [facility] [address] 41307- 6309 07 Apr, 2017 Panlobular emphysema J43.1 [facility] [address] [place] [id number] [place] [address] 44565- 9420 Apr, [facility] [address] 54015 -8794 Apr, Exudative tonsillitis J03.90 and Sore throat J02.9 [place] [address] 68008- 9799 17 Mar, 2017 [facility] [address] [place] [id number] [place] [address] 69427- 5539 15 Mar, 2017 Acute non-recurrent maxillary sinusitis J01.00 [place] [address] [place] [id number] [place] [address] 73818- 5818 Mar, [place] [address] [place] [id number] [place] [address] 83020- 9702 Mar, Panlobular emphysema J43.1 and Diabetes E11.9 [facility] [address] [place] [id number] [place] [address] 67446- 8871 Mar, [facility] [address] [place] [id number] [place] [address] 96302 -4772 Feb, Wheezing R06.2 and Acute recurrent pansinusitis J01.41 [facility] [address] [place] [id number] [place] [address] 57033- 0255 Feb, [facility] [address] 21593- 4365 Feb, Acute non-recurrent maxillary sinusitis J01.00 [facility] [address] [place] [id number] [place] [address] 3225 Feb, Chronic obstructive pulmonary disease, unspecified J44.9 [facility] [address] [place] [address]- 7922 Feb, Hypoxemia R09.02 and Chronic obstructive pulmonary disease, unspecified J44.9 [place] [address] 1692 28 Jan, 2017 Bipolar 1 disorder, depressed, moderate F31.32 ; Panic disorder with agoraphobia F40.01 ; Chronic post-traumatic stress disorder (PTSD ) F43.12 ; Diabetes E11.9 and Moderate persistent asthma without complication J45.40 [place] [address] 04065- 0545 Jan, [place] [address] [place] [address]- 6301 Jan, Acute non-recurrent maxillary sinusitis J01.00 [place] [address] 971819- 0348 18 Jan, 2017 [place] [address] 64308- 3897 Jan, [place] [address] [place] 714178- 2094 Jan, Moderate persistent asthma without complication J45.40 and Hypoxemia R09.02 [place] [address] [place] [id number] [place] [address] 42616- 2545 11 Jan, 2017 Moderate persistent asthma without complication J45.40 and Hypoxemia R09.02 [place] [address] [place] 55[address]- 2540 Jan, [place] [address] [place] 55238115- 5514 Dec, Acute non-recurrent maxillary sinusitis J01.00 [facility] [id number] [place] [address] 12121- 7812 Dec, Chronic obstructive pulmonary disease, unspecified J44.9 [facility] [address] [place] [id number] [place] [address] 07014- 2299 Dec, [facility] [address] [place] [id number] [place] [address] 58833- 7212 Dec, Mild persistent asthma without complication J45.30 and Other chronic pain G89.29 [facility] [address] [place] [id number] [place] [address] 64992- 0661 Nov, [facility] [address] [place] [id number] [place] [address] 37905- 0367 Nov, Acute non-recurrent maxillary sinusitis J01.00 [facility] [address] [place] [id number] [place] [address] 77304- 3505 Nov, [facility] [address] [place] [id number] [place] [address] 66228- 6496 Nov, [facility] [address] [place] [id number] [place] [address] 54584- 1572 Oct, [facility] [address] [place] [id number] [place] [address] 16078- 0493 Oct, Bipolar 1 disorder, depressed, partial remission F31.75 ; Panic disorder with agoraphobia F40.01 and Chronic post-traumatic stress disorder (PTSD) F43.12 [facility] [id number] [place] [address] 80785- 2071 Oct, Acute non-recurrent maxillary sinusitis J01.00 [facility] [address] [place] [id number] [place] [address] 40675- 8559 Oct, [facility] [address] [place] [id number] [place] [address] 66772- 4271 Oct, Diabetes E11.9 [facility] [address] [place] [id number] [place] [address] 86593- 5554 September, Diabetes E11.9 [facility] [address] [address]- 1995 September, Diabetes E11.9 and Sinus tachycardia R00.0 [facility] [address] [place] [id number] [address]- 2348 September, [facility] [address] [place] [id number] [place] [address] 93918- 3091 September, [facility] [address] [place] [id number] [place] [address] 31076- 6353 Aug, Diabetes E11.9 and Lumbago with sciatica, right side M54.41 [facility] [address] [place] [id number] [place] [address] 71343- 6173 Aug, [facility] [address] [place] [id number] [place] [address] 65504- 0943 Jul, Bipolar 1 disorder, depressed, moderate F31.32 ; Panic disorder with agoraphobia F40.01 and Chronic post-traumatic stress disorder ( PTSD) F43.12 [facility] [address] [place] [id number] [place] [address] 18313- 7916 Jul, Sore throat J02.9 [facility] [address] [address]- 9043 Jul, [facility] [address] [address]- 6104 Jul, [facility] [address] [address]- 3362 Jul, [facility] [address] [place] [id number] [place] [address] 06831- 7179 Jul, [facility] [address] [address]- 6852 Jul, Sore throat J02.9 and Pharyngitis, unspecified etiology J02.9 [facility] [address] [address]- 8284 Jun, [facility] [address] [address]- 1280 Jun, Diabetes E11.9 [facility] [address] [address]- 3686 Jun, [facility] [address] [place] [id number] [place] [address] 07565- 4398 Jun, [facility] [address] [address]- 7706 Jun, [facility] [id number] [place] [address] 12140- 5690 Jun, [facility] [id number] [place] [address] 56231- 6146 Jun, [facility] [address] [address]- 6929 Jun, [facility] [address] [address]- 1260 Jun, [facility] [address] [address]- 3632 Jun, [facility] [address] [address]- 1676 May, Diabetes E11.9 ; Other chronic pain G89.29 ; Acute recurrent maxillary sinusitis J01.01 ; Bipolar I disorder with depression F31.9 and Anxiety disorder, unspecified F41.9 [facility] [address] [address]- 8601 May, [facility] [address] [address]- 1542 May, Diabetes E11.9 ; Bipolar I disorder with depression F31.9 ; Anxiety disorder, unspecified F41.9 ; Other chronic pain G89.29 and Acute recurrent maxillary sinusitis J01.01 [place] [address] [place] [id number] [place] [address] 32403- 0496 May, [place] [address] [place] [id number] [place] [address] 95300- 488 May, Attention deficit hyperactivity disorder (ADHD), predominantly inattentive type F90.0 [place] [address] 34382- 6224 May, [place] [address] [place] [id number] [place] [address] 04438- 6661 Apr, Attention deficit hyperactivity disorder (ADHD), predominantly inattentive type F90.0 and Non-seasonal allergic rhinitis due to other allergic trigger J30.89 [place] [address] [place] [id number] [place] [address] 07971- 4267 Apr, Bipolar 1 disorder, depressed, moderate F31.32 ; Panic disorder with agoraphobia F40.01 and Chronic post-traumatic stress disorder ( PTSD) F43.12 [place] [address] [place] [id number] [place] [address] 97759- 0188 06 Apr, 2016 Dental examination Z01.20 [place] [address] [place] [id number] [place] [address] 28974- 6824 Mar, [place] [address] [place] [id number] [place] [address] 73194- 2830 Mar, [place] [address] [place] [id number] [place] [address] 50518- 4675 Mar, Bipolar I disorder with depression F31.9 and Anxiety disorder, unspecified F41.9 [place] [address] [place] [id number] [place] [address] 72166- 8531 08 Mar, 2016 Panic disorder with agoraphobia F40.01 ; Bipolar 1 disorder , depressed, moderate F31.32 and Chronic post-traumatic stress disorder (PTSD) F43.12 [place] [address] [place] [id number] [place] [address] 04550- 6733 Mar, [facility] [address] [place] [id number] [place] [address] 86474- 9580 02 Mar, 2016 Dental caries K02.9 [place] [address] [place] [id number] [place] [address] 15360- 4219 24 Feb, 2016 Lumbago with sciatica, left side M54.42 ; Lumbago with sciatica, right side M54.41 and Other chronic pain G89.29 [place] [address] [place] [id number] [place] [address] 44431- 1229 17 Feb, 2016 [place] [address] 22642- 8505 14 Feb, 2016 [place] [address] [place] [id number] [place] [address] 85152- 6495 13 Feb, 2016 Bipolar I disorder with depression F31.9 ; PTSD (post- traumatic stress disorder) F43.10 and Mood disorder F39 [place] [address] [place] [id number] [place] [address] 72925- 2225 13 Feb, 2016 [place] [address] [place] [id number] [place] [address] 36306- 0999 11 Feb, 2016 Dental examination Z01.20 [place] [address] [place] [id number] [place] [address] 25602- 5617 07 Feb, [address] [facility] [address] [place] [id number] [place] [address] 95542 -2377 03 Feb, 2016 Acute bronchitis, unspecified organism J20.9 [place] [address] [place] [id number] [place] [address] 21909- 3126 26 Jan, 2016 Mood disorder F39 ; Migraine without aura and without status migrainosus, not intractable G43.009 ; Irritable bowel syndrome, unspecified type K58.9 ; Diabetes E11.9 and Encounter for immunization Z23 [place] [address] [place] [id number] [place] [address] 80199- 0489 15 Jan, 2016 [place] [address] [place] [address]- 0243 Jan, [facility] [address] [address]- 6838 Jan, [facility] [address] [address]- 3519 Jan, [facility] [id number] [place] [address] 26272- 1536 Jan, [facility] [address] [place] [id number] [place] [address] 23868- 7082 Dec, Bipolar I disorder with depression F31.9 ; PTSD (post- traumatic stress disorder) F43.10 and Panic disorder with agoraphobia F40.01 [facility] [address] [address]- 4217 Dec, Chronic obstructive pulmonary disease, unspecified COPD type J44.9 ; Tremor R25.1 and Anxiety F41.9 [facility] [address] [id number] [address]- 6492 Dec, [facility] [address] [place] [id number] [place] [address] 95924- 5969 Nov, Tremors of nervous system R25.1 and Cramping of feet R25.2 [facility] [address] [address]- 4600 Nov, [facility] [address] [address]- 0954 Nov, [facility] [address] [address]- 3643 Oct, Chronic obstructive pulmonary disease, unspecified J44.9 [facility] [address] [address]- 3475 Oct, [facility] [address] [address]- 0189 Oct, Tremor R25.1 [place] [address] [address]- 6456 23 Oct, 2015 Bipolar I disorder with depression F31.9 ; Diabetes E11.9 ; PTSD (post-traumatic stress disorder) F43.10 and Panic disorder with agoraphobia F40.01 [place] [address] [place] [id number] [place] [address] 16322- 8439 16 Oct, 2015 Mood disorder F39 [place] [address] [place] [id number] [place] [address] 45716- 4342 September, [place] [address] [id number] [place] [address] 56674- 0261 September, Diabetes E11.9 ; Bipolar I disorder with depression F31.9 ; PTSD (post-traumatic stress disorder) F43.10 and Panic disorder with agoraphobia F40.01 [place] [address] [place] [id number] [place] [address] 26049- 5254 September, Mood disorder F39 ; Schizoaffective disorder, unspecified type F25.9 ; Arthritis M19.90 ; Tremor R25.1 ; Acute non-recurrent frontal sinusitis J01.10 and Blood in stool K92.1 [place] [address] [id number] [place] [address] 97708- 4530 September, [place] [address] [place] [id number] [place] [address] 71605- 0806 September, Chronic obstructive pulmonary disease, unspecified J44.9 [place] [address] [id number] [place] [address] 97990- 7284 September, Diabetes E11.9 [place] [address] [id number] [place] [address] 94035- 1325 Aug, Other bipolar disorder F31.89 and Anxiety disorder, unspecified F41.9 [place] [id number] [place] [address] 48776- 2549 Aug, [place] [address] [id number] [place] [address] 50282- 4032 Aug, Diabetes E11.9 [facility] [id number] [place] [address] 68384- 4026 Aug, [facility] [id number] [place] [address] 25361- 7151 Aug, Diabetes E11.9 ; Fatigue R53.83 and Dizziness R42 [facility] [address] 41802- 2392 Aug, Other bipolar disorder F31.89 [facility] [id number] [place] [address] 59801- 2419 Aug, Generalized anxiety disorder F41.1 [facility] [id number] [place] [address] 14818- 9454 Aug, Other bipolar disorder F31.89 and Anxiety disorder, unspecified F41.9 [facility] [id number] [place] [address] 90392- 3405 Aug, [facility] [id number] [place] [address] 76692- 7974 Jul, [facility] [id number] [place] [address] [id number]- [id number] 24 Jul, 2015 [facility] [id number] [place] [address] 60770- 4639 Jul, Bronchitis J40 [facility] [id number] [place] [address] 42892- 4034 Jul, Anxiety disorder F41.9 [facility] [id number] [place] [address] 21492- 2891 Jul, Other bipolar disorder F31.89 and Anxiety disorder, unspecified F41.9 [facility] [id number] [place] [address] 04756- 5304 Jul, Other bipolar disorder F31.89 and Fibromyalgia M79.7 [facility] [id number] [place] [address] [id number]- 8778 Jul, [facility] [id number] [place] [address] [id number]- [id number] Jul, [facility] [id number] [place] [address] [id number]- 0779 Jul, [facility] [id number] [place] [address] 04523- 1221 Jul, Other bipolar disorder F31.89 and Anxiety disorder, unspecified F41.9 [facility] [id number] [place] [address] 72178- [id number] Jun, GERD (gastroesophageal reflux disease) K21.9 [facility] [id number] [place] [address] 30143- 4774 Jun, [facility] [id number] [place] [address] 67814- 7882 May, [facility] [id number] [place] [address] 37763- 1556 May, Diabetes E11.9 ; Back pain M54.9 ; GERD (gastroesophageal reflux disease) K21.9 ; Hypertension I10 and Peripheral neuropathy G62.9 [facility] [id number] [place] [address] 31790- 5101 Mar, [facility] [id number] [place] [address] 02352- 5142 Mar, [facility] [id number] [place] [address] 82977- 4151 Mar, Acute sinusitis J01.90 and Otitis media, left H66.92 [facility] [id number] [place] [address] 19115- 3075 Feb, [facility] [id number] [place] [address] 47045- 4363 Feb, [facility] [address] 22403- 3354 Feb, [facility] [address] [address] 7649 Feb, [facility] [id number] [place] [address] 15830- 4419 Jan, [facility] [id number] [place] [address] 62531- 2907 Jan, Diabetes 250.00 and Back pain 724.5 [facility] [id number] [place] [address] 74747- 3078 Jan, [facility] [id number] [place] [address] 01613- 7435 Dec, Diabetes 250.00 ; Benign essential hypertension 401.1 and Allergic rhinitis 477.9 [facility] [id number] [place] [address] 74593- 0560 Dec, [facility] [id number] [place] [address] 77439- 9175 Dec, [facility] [id number] [place] [address] 53829- 3591 Dec, Psychosis 298.9 [facility] [id number] [place] [address] 06223- 7859 Dec, Medication side effect 995.20 and Generalized anxiety disorder 300.02 [facility] [id number] [place] [address] 83803- 9423 Dec, Acquired cognitive dysfunction 294.9 [facility] [id number] [place] [address] 90790- 8638 Dec, [facility] [id number] [place] [address] 73062- 9827 Dec, Unspecified myalgia and myositis 729.1 and Generalized anxiety disorder 300.02 [facility] [id number] [place] [address] 19459- 6304 Nov, [facility] [address] [address]- 1005 Nov, [facility] [id number] [place] [address] 66103- 4685 Nov, [facility] [address] [address]- 7844 Nov, Upper respiratory infection 465.9 and Chronic airway obstruction, not elsewhere classified 496 [facility] [id number] [place] [address] 08160- 7053 Nov, Hyponatremia 276.1 [facility] [id number] [place] [address] 65255- 7293 Oct, [facility] [id number] [place] [address] 04917- 3956 Oct, [facility] [id number] [place] [address] 59679- 6978 Oct, [facility] [id number] [place] [address] 91428- 6584 Oct, [facility] [id number] [place] [address] 07922- 1669 Oct, Hyponatremia 276.1 [facility] [address] [address]- 5688 Oct, [facility] [address] [address]- 3003 Oct, [facility] [address] [address]- 9223 Oct, Generalized anxiety disorder 300.02 [facility] [id number] [place] [address] 53131- 3944 Oct, Generalized anxiety disorder 300.02 and Diabetes 250.00 [facility] [address] [address]- 7122 Aug, [facility] [id number] [address]- 2272 13 Aug, 2014 [facility] [address] [id number] [place] [address]- 7720 Jul, [facility] [place] [facility] [address] [id number] [place] [address]- 6388 Jul, [facility] [address] [id number] [place] [address]- 5539 Jun, [facility] [place] [facility] [address] [id number] [place] [address]- 2177 Jun, [facility] [place] [facility] [address] [id number] [place] [address]- 7223 Jun, [facility] [address] [id number] [place] [address]- 9843 Jun, [facility] [place] [facility] [address] [id number] [place] [address]- 9514 Jun, [facility] [address] [id number] [place] [address]- 2211 May, [facility] [address] [id number] [place] [address]- 2719 May, [facility] [address] [id number] [place] [address]- 9969 Apr, [facility] [place] [place] [facility] [address] [id number] [place] [address]- 2895 Apr, [facility] [place] [facility] [address] [id number] [place] [address]- 8258 18 Apr, 2013 [facility] [place] [facility] [address] [id number] [place] [address]- 3814 18 Apr, 2013 [facility] [place] [facility] [address] [id number] [place] [address]- 9808 17 Apr, 2013 [facility] [place] [facility] [address] [id number] [place] [address]- 8632 Apr, [facility] [place] [facility] [address] [id number] [place] [address] 2540 Apr, [facility] [place] [facility] [address] [id number] [place] [address]- 7316 Apr, [facility] [place] [facility] [address] [id number] [place] [address] 2546 Feb, [facility] [place] [facility] [address] [id number] [place] [address]- 2547 Feb, [facility] [place] [facility] [address] [id number] [place] [address] 254 Jan, [facility] [place] [facility] [address] [id number] [place] [address] 2546 Jan, [facility] [place] [facility] [address] [id number] [place] [address]- 4124 Dec, [facility] [place] [facility] [address] [id number] [place] [address]- 2656 Dec, [facility] [place] [facility] [address] [id number] [place] [address]- 5665 Dec, [facility] [place] [facility] [address] [id number] [place] [address]- 9438 Nov, [facility] [place] [facility] [address] [id number] [address]- 2545 Nov, [facility] [place] [facility] [address] [id number] [address]- 2549 Nov, [facility] [place] [facility] [address] [id number] [place] [address]- 2540 Oct, [facility] [place] [facility] [address] [id number] [place] [address]- 2546 Oct, [facility] [place] [facility] [address] [id number] [place] [address]- 2546 Oct, [facility] [place] [facility] [address] [id number] [place] [address]- 0111 September, [facility] [address] [id number] [place] [address]- 8195 September, [facility] [address] [id number] [place] [address]- 2026 September, [facility] [address] [id number] [place] [address]- 4034 Aug, [facility] [address] [id number] [place] [address]- 2407 Aug, [facility] [address] [id number] [place] [address]- 2359 Aug, [facility] [address] [id number] [place] [address]- 1070 16 Aug, 2011 [facility] [address] [id number] [place] [address]- 4146 Jul, [facility] [address] [id number] [place] [address]- 9428 Jun, [facility] [address] [id number] [place] [address]- 0386 14 Jun, 2011 [facility] [address] [id number] [place] [address]- 4267 13 Jun, 2011 [facility] [address] [id number] [place] [address]- 4626 07 Jun, 2011 [facility] [address] [id number] [place] [address]- 8336 Jun, [facility] [place] [facility] [address] [id number] [place] [address]- 9334 13 May, [address] [facility] [place] [facility] [address] [id number] [place] [address]- 1986 May, [facility] [address] [id number] [place] [address]- 1439 May, [facility] [place] [facility] [address] [id number] [place] [address]- 6494 May, [facility] [place] [facility] [address] [id number] [place] [address]- 5765 Apr, [facility] [place] [facility] [address] [id number] [place] [address]- 7800 Apr, [facility] [place] [facility] [address] [id number] [place] [address]- 2696 Apr, [facility] [place] [facility] [address] [id number] [place] [address]- 7421 Mar, [facility] [place] [facility] [address] [id number] [place] [address]- 6648 Mar, [facility] [place] [facility] [address] [id number] [place] [address]- 6154 Mar, [facility] [place] [facility] [address] [id number] [place] [address]- 8627 13 Feb, 2011 [facility] [place] [facility] [address] [id number] [place] [address]- 3088 Feb, [facility] [place] [facility] [address] [id number] [place] [address]- 6500 13 Feb, 2011 [facility] [place] [facility] [address] [id number] [address]- 5800 Nov, [facility] [place] [facility] [address] [id number] [place] [address]- 8960 September, [facility] [place] [facility] [address] [id number] [place] [address]- 4613 Aug, [facility] [place] [facility] [address] [id number] [place] [address]- 5577 14 Jul, 2010 [facility] [place] [facility] [address] [id number] [place] [address]- 9511 May, [facility] [place] [facility] [address] [facility] [id number] [place] [address]- 8100 Apr, [facility] [address] [facility] [id number] [place] [address]- 9348 Apr, [facility] [address] [facility] [id number] [place] [address]- 0741 Apr, [facility] [address] [facility] [id number] [place] [address]- 7134 Apr, [facility] [address] [facility] [id number] [place] [address]- 4436 Apr, IMMUNIZATIONS No Known Immunizations SOCIAL HISTORY Never Assessed REASON FOR VISIT refill request PLAN OF CARE VITAL SIGNS MEDICATIONS Medication Instructions Dosage Frequency Start Date End Date Duration Status Spiriva HandiHaler 18 MCG Inhalation Once a day 1 capsule 24h Oct, May, 30 days Active RESULTS No Results PROCEDURES [...]
--- OUTSIDE RECORDS SUMMARY | 2017-11-18 07:28 | XMS REPORT ---
Author Author JOHANN YVON Organization [facility] [place] Address [address] [place] [address] Care Team Providers Care Scouts Name Role Phone KYE WILLSA Unavailable PROBLEMS Type Condition ICD9-CM Code DKT24-OZ Code Onset Dates Condition Status SNOMED Code Problem Back pain M54.9 Active 804510895 Problem GERD (gastroesophageal reflux disease) K21.9 Active 827552129 Problem Diabetes E11.9 Active 51278943 Problem Hypertension I10 Active 48317938 Problem Anxiety disorder, unspecified F41.9 Active 293122993 Problem Other bipolar disorder F31.89 Active 32490111 Problem Mild persistent asthma without complication J45.30 Active 785312954 Problem Fibromyalgia M79.7 Active 91870094 Problem Moderate persistent asthma without complication J45.40 Active 095157570 Problem Panic disorder with agoraphobia F40.01 Active 27369923 Problem Panlobular emphysema J43.1 Active 8830409 Problem Migraine without aura and without status migrainosus, not intractable G43.009 Active 032224293 Problem Akathisia G25.71 Active 015941397 Problem Schizoaffective disorder, bipolar type F25.0 Active 46126135 Problem Irritable bowel syndrome with both constipation and diarrhea K58.2 Active 21469203 Problem Lumbago with sciatica, left side M54.42 Active 687214390 Problem Other chronic pain G89.29 Active 52609039 Problem Chronic obstructive pulmonary disease, unspecified J44.9 Active 66870015 Problem Fibrocystic disease of left breast N60.12 Active 51936927 Problem Fibrocystic disease of right breast N60.11 Active 90901146 Problem Irritable bowel syndrome with constipation K58.1 Active 407236231 Problem Arthritis M19.90 Active 8486663 Problem Chronic post-traumatic stress disorder (PTSD) F43.12 Active 961123979 Problem Bipolar affective disorder, remission status unspecified F31.9 Active 25673577 Problem Lumbago with sciatica, right side M54.41 Active 693587608 Problem Bipolar 1 disorder, depressed, moderate F31.32 Active 93371840 Problem Acute non-recurrent maxillary sinusitis J01.00 Active 67582104 Problem Bipolar 1 disorder, depressed, partial remission F31.75 Active 04311187 Problem Attention deficit hyperactivity disorder (ADHD), predominantly inattentive type F90.0 Active 55227442 Problem Bipolar I disorder with depression F31.9 Active 14978758 ALLERGIES No Information ENCOUNTERS Encounter Location Date Diagnosis [place] [address] [address] Nov, [place] [address] [address] September, [place] [address] 40551- 6489 Aug, Bipolar affective disorder, remission status unspecified F31.9 and Diabetes E11.9 [place] [address] 28986- 3714 Aug, Diabetes E11.9 ; Schizoaffective disorder, bipolar type F25.0 ; Pharyngitis due to other organism J02.8 ; Panlobular emphysema J43.1 and Irritable bowel syndrome with both constipation and diarrhea K58.2 [place] [address] [place] [id number] [place] [address] 73069- 9785 Aug, Abnormal mammogram R92.8 [place] [address] [address]- 8074 Aug, [place] [address] 86685- 4291 Aug, Bipolar 1 disorder, depressed, moderate F31.32 ; Panic disorder with agoraphobia F40.01 and Chronic post-traumatic stress disorder ( PTSD) F43.12 [place] [address] [place] [id number] [place] [address] 71394- 5617 Aug, [place] [address] 77886- 0948 Aug, [facility] [place] [address] [address] 8208 Aug, [facility] [place] [address] [place] [address] 165395- 7774 Jul, [facility] [place] [address] [place] [id number] [place] [address] 32346- 4779 Jul, Mild persistent asthma without complication J45.30 [facility] [place] [address] [place] [id number] [place] [address] 67917- 7921 19 Jul, 2017 Mild persistent asthma without complication J45.30 [place] [address] [place] [id number] [place] [address] 87327- 9389 15 Jul, 2017 Bipolar affective disorder, remission status unspecified F31.9 ; Diabetes E11.9 and Irritable bowel syndrome with constipation K58.1 [facility] [place] [address] [place] [id number] [place] [address] 10856- 2311 Jul, [facility] [place] [address] [place] [id number] [place] [address] 90625- 8555 Jul, [facility] [place] [address] [place] [id number] [place] [address] 39079- 1265 Jul, Frequent headaches R51 [facility] [place] [address] [place] [id number] [address]- 6320 Jul, [facility] [place] [address] [address]- 6662 Jul, [facility] [place] [address] [address]- 6269 Jul, [facility] [place] [address] [place] [id number] [place] [address] 31824- 8153 Jul, Frequent headaches R51 ; Fibrocystic disease of left breast N60.12 ; Fibrocystic disease of right breast N60.11 and Diabetes E11.9 [facility] [place] [address] [place] [id number] [place] [address] 53176- 6914 Jul, [facility] [place] [address] [place] [id number] [place] [address] 39310- 9652 Jul, [facility] [place] [address] [place] [id number] [place] [address] 14267- 5886 Jun, Exudative tonsillitis J03.90 [facility] [place] [address] 38691- 1558 Jun, [facility] [place] [address] 87201- 5956 19 Jun, 2017 [facility] [place] [address] 92506- 7154 15 Jun, 2017 Mild persistent asthma without complication J45.30 ; Chronic obstructive pulmonary disease, unspecified COPD type J44.9 and Exudative tonsillitis J03.90 [facility] [place] [address] 74611- 3826 13 Jun, 2017 Encounter for immunization Z23 [facility] [place] [address] [place] [id number] [place] [address] 86976- 6499 Jun, [facility] [place] [address] 17075- 3582 Jun, [facility] [place] [address] [place] [id number] [place] [address] 85794- 3012 Jun, [facility] [address] [place] [id number] [place] [address] 31167 -8018 Jun, Tonsillitis J03.90 [facility] [place] [address] [place] [id number] [place] [address] 03186- 9351 Jun, [facility] [place] [address] [place] [id number] [place] [address] 87413- 1404 Jun, Acute non-recurrent maxillary sinusitis J01.00 [facility] [place] [address] [place] [id number] [place] [address] 43958- 1025 Jun, [facility] [place] [address] [place] [id number] [place] [address] 70072- 2415 May, [facility] [place] [address] [place] [id number] [place] [address] 16373- 4728 May, [facility] [place] [address] [place] [id number] [place] [address] 10646- 3760 May, GERD (gastroesophageal reflux disease) K21.9 [facility] [place] [address] 81579- 6417 May, Migraine without aura and without status migrainosus, not intractable G43.009 [place] [address] [place] [id number] [place] [address] 59163- 1975 May, [place] [address] [place] [id number] [place] [address] 13286- 4274 May, [place] [address] [place] [id number] [place] [address] 73531- 2558 May, Panlobular emphysema J43.1 and Acute non-recurrent maxillary sinusitis J01.00 [place] [address] [place] [id number] [place] [address] 27816- 9632 May, Bipolar 1 disorder, depressed, moderate F31.32 ; Panic disorder with agoraphobia F40.01 and Akathisia G25.71 [place] [address] [place] [id number] [place] [address] 41167- 7799 Apr, [place] [address] [place] [id number] [place] [address] 52431- 2455 Apr, [place] [address] [place] [id number] [place] [address] 12814- 8939 Apr, Acute non-recurrent maxillary sinusitis J01.00 [place] [address] [place] [id number] [place] [address] 09822- 4845 Apr, Panlobular emphysema J43.1 [place] [address] [place] [id number] [place] [address] 04224- 0206 Apr, [facility] [address] [place] [id number] [place] [address] 99302 -7892 Apr, Sore throat J02.9 and Exudative tonsillitis J03.90 [facility] [place] [address] [place] [id number] [place] [address] 09552- 0001 Mar, [facility] [place] [address] 91899- 8343 Mar, Acute non-recurrent maxillary sinusitis J01.00 [place] [address] 33283- 5673 Mar, [place] [address] [place] [id number] [place] [address] 39535- 8735 Mar, Panlobular emphysema J43.1 and Diabetes E11.9 [place] [address] 68123- 3473 Mar, [facility] [address] [place] [id number] [place] [address] 55164 -1918 Feb, Wheezing R06.2 and Acute recurrent pansinusitis J01.41 [place] [address] [place] [id number] [place] [address] 41704- 0013 Feb, [place] [address] [place] [id number] [place] [address] 34292- 3029 Feb, Acute non-recurrent maxillary sinusitis J01.00 [place] [address] [place] [id number] [place] [address] 40187- 7840 Feb, Chronic obstructive pulmonary disease, unspecified J44.9 [place] [address] 43090- 3866 Feb, Hypoxemia R09.02 and Chronic obstructive pulmonary disease, unspecified J44.9 [place] [address] 20060- 9258 Jan, Bipolar 1 disorder, depressed, moderate F31.32 ; Panic disorder with agoraphobia F40.01 ; Chronic post-traumatic stress disorder (PTSD ) F43.12 ; Diabetes E11.9 and Moderate persistent asthma without complication J45.40 [facility] [place] [address] [place] [id number] [place] [address] 58192 2546 22 Jan, 2017 [facility] [place] [address] [place] [id number] [place] [address] 23327 2546 19 Jan, 2017 Acute non-recurrent maxillary sinusitis J01.00 [facility] [place] [address] [place] [id number] [place] [address] 67019- 8596 18 Jan, 2017 [facility] [place] [address] [place] [id number] [place] [address] 47469- 2578 Jan, [facility] [place] [address] [place] [id number] [place] [address] 17408 2543 Jan, Moderate persistent asthma without complication J45.40 and Hypoxemia R09.02 [facility] [place] [address] [place] [id number] [place] [address] 51736 2546 Jan, Moderate persistent asthma without complication J45.40 and Hypoxemia R09.02 [facility] [place] [address] [place] [id number] [place] [address] 16731 2546 Jan, [facility] [place] [address] [place] [id number] [place] [address] 79334 2546 Dec, Acute non-recurrent maxillary sinusitis J01.00 [facility] [place] [address] [place] [id number] [place] [address] 40286 2546 Dec, Chronic obstructive pulmonary disease, unspecified J44.9 [facility] [place] [address] [place] [id number] [place] [address] 22389 2546 Dec, [place] [address] [place] [id number] [place] [address] 13159 2546 Dec, Mild persistent asthma without complication J45.30 and Other chronic pain G89.29 [facility] [place] [address] [place] [id number] [address]- 4551 Nov, [facility] [place] [address] [place] [address] 86051- 0813 Nov, Acute non-recurrent maxillary sinusitis J01.00 [facility] [place] [address] [address]- 7784 Nov, [facility] [place] [address] [place] [id number] [place] [address] 07699- 0659 Nov, [facility] [place] [address] [place] [id number] [place] [address] 72930- 8638 Oct, [facility] [place] [address] [place] [id number] [place] [address] 73296- 4319 Oct, Bipolar 1 disorder, depressed, partial remission F31.75 ; Panic disorder with agoraphobia F40.01 and Chronic post-traumatic stress disorder (PTSD) F43.12 [facility] [place] [address] [place] [id number] [place] [address] 66199- 3860 Oct, Acute non-recurrent maxillary sinusitis J01.00 [facility] [place] [address] [place] [address] 75804- 2054 Oct, [facility] [place] [address] [place] [address] 02205- 5789 Oct, Diabetes E11.9 [facility] [place] [address] [place] [address] 17419- 5990 September, Diabetes E11.9 [facility] [place] [address] [place] [address] 67474- 5359 September, Diabetes E11.9 and Sinus tachycardia R00.0 [facility] [place] [address] [place] [address] 37224- 1199 September, [facility] [place] [address] [place] [address] 40352- 9704 September, [facility] [place] [address] [place] [id number] [place] [address] 86048- 3058 13 Aug, 2016 Diabetes E11.9 and Lumbago with sciatica, right side M54.41 [facility] [place] [address] [place] [id number] [place] [address] 12130- 4050 Aug, [facility] [place] [address] [place] [id number] [place] [address] 54721- 3618 Jul, Bipolar 1 disorder, depressed, moderate F31.32 ; Panic disorder with agoraphobia F40.01 and Chronic post-traumatic stress disorder ( PTSD) F43.12 [facility] [place] [address] [place] [id number] [place] [address] 53030- 2041 Jul, Sore throat J02.9 [facility] [place] [address] [place] [id number] [place] [address] 71943- 1706 Jul, [facility] [place] [address] [place] [id number] [place] [address] 35338- 3349 Jul, [facility] [place] [address] [place] [id number] [place] [address] 76793- 4505 Jul, [facility] [place] [address] [place] [id number] [place] [address] 35133- 1387 Jul, [facility] [place] [address] [place] [address] 64361- 7999 Jul, Sore throat J02.9 and Pharyngitis, unspecified etiology J02.9 [facility] [place] [address] [place] [address] 51752- 6496 Jun, [facility] [place] [address] [place] [address] 97149- 4203 Jun, Diabetes E11.9 [facility] [place] [address] [place] [address] 85516- 2656 Jun, [facility] [place] [address] [place] [address] 07598- 9247 Jun, [facility] [place] [address] [place] [id number] [address]- 9897 16 Jun, 2016 [facility] [place] [address] [place] [address] 80878- 8633 Jun, [facility] [place] [address] [place] [address] 79246- 0895 Jun, [facility] [place] [address] [place] [address] 82667- 9168 Jun, [facility] [place] [address] [place] [address] 31793- 6341 Jun, [facility] [place] [address] [place] [address] 38633- 9701 Jun, [facility] [place] [address] [place] [address] 59271- 7590 May, Diabetes E11.9 ; Bipolar I disorder with depression F31.9 ; Other chronic pain G89.29 ; Acute recurrent maxillary sinusitis J01.01 and Anxiety disorder, unspecified F41.9 [facility] [place] [address] [address]- 6713 May, [facility] [place] [address] [place] [address] 57794- 0472 May, Diabetes E11.9 ; Bipolar I disorder with depression F31.9 ; Anxiety disorder, unspecified F41.9 ; Other chronic pain G89.29 and Acute recurrent maxillary sinusitis J01.01 [facility] [place] [address] [address]- 9279 May, [facility] [place] [address] [place] [address] 35265- 2701 May, Attention deficit hyperactivity disorder (ADHD), predominantly inattentive type F90.0 [facility] [place] [address] [address]- 1112 May, [facility] [place] [address] [place] [id number] [place] [address] 89365- 1791 Apr, Attention deficit hyperactivity disorder (ADHD), predominantly inattentive type F90.0 and Non-seasonal allergic rhinitis due to other allergic trigger J30.89 [place] [address] [place] [address] 12175- 9877 Apr, Bipolar 1 disorder, depressed, moderate F31.32 ; Panic disorder with agoraphobia F40.01 and Chronic post-traumatic stress disorder ( PTSD) F43.12 [place] [address] [place] [id number] [place] [address] 88455- 9841 Apr, Dental examination Z01.20 [place] [address] 02150- 2274 Mar, [place] [address] [place] [id number] [place] [address] 38325- 8970 Mar, [place] [address] [place] [id number] [place] [address] 44577- 8271 Mar, Bipolar I disorder with depression F31.9 and Anxiety disorder, unspecified F41.9 [place] [address] [place] [id number] [place] [address] 21694- 8096 Mar, Panic disorder with agoraphobia F40.01 ; Bipolar 1 disorder , depressed, moderate F31.32 and Chronic post-traumatic stress disorder (PTSD) F43.12 [place] [address] [place] [id number] [place] [address] 93492- 2677 Mar, [place] [address] [place] [id number] [place] [address] 70637- 8958 Mar, Dental caries K02.9 [place] [address] [place] [id number] [place] [address] 91199- 8940 Feb, Lumbago with sciatica, left side M54.42 ; Lumbago with sciatica, right side M54.41 and Other chronic pain G89.29 [place] [address] [place] [id number] [place] [address] 21526- 3713 Feb, [facility] [place] [address] [place] [place] [id number] [place] [address] 18195- 6079 14 Feb, 2016 [facility] [place] [address] [place] [id number] [place] [address] 68578- 7425 Feb, Bipolar I disorder with depression F31.9 ; PTSD (post- traumatic stress disorder) F43.10 and Mood disorder F39 [facility] [place] [address] 93046- 7294 Feb, [facility] [place] [address] [place] [id number] [place] [address] 85029- 6192 11 Feb, 2016 Dental examination Z01.20 [place] [address] [place] [id number] [place] [address] 30057- 7931 07 Feb, 2016 [facility] [address] [place] [id number] [place] [address] 83757 -7322 03 Feb, 2016 Acute bronchitis, unspecified organism J20.9 [facility] [place] [address] [place] [id number] [place] [address] 05474- 3395 26 Jan, 2016 Mood disorder F39 ; Migraine without aura and without status migrainosus, not intractable G43.009 ; Irritable bowel syndrome, unspecified type K58.9 ; Diabetes E11.9 and Encounter for immunization Z23 [facility] [place] [address] [place] [id number] [place] [address] 04456- 0336 15 Jan, 2016 [facility] [place] [address] [id number] [place] [address] 90218- 5835 06 Jan, 2016 [facility] [place] [address] [place] [id number] [place] [address] 94281- 3620 Jan, [facility] [place] [address] 69031- 6027 Jan, [facility] [place] [address] [id number] [place] [address] [phone]- 9693 Jan, [facility], [place] [address] 4[address]- [address] Dec, Bipolar I disorder with depression F31.9 ; PTSD (post- traumatic stress disorder) F43.10 and Panic disorder with agoraphobia F40.01 [facility], [place] [id number] [place] [address] 86783- 4804 Dec, Chronic obstructive pulmonary disease, unspecified COPD type J44.9 ; Tremor R25.1 and Anxiety F41.9 [facility], [place] [id number] [place] [address] [phone]- 6001 Dec, [facility], [place] [id number] [place] [address] [phone]- 6491 Nov, Tremors of nervous system R25.1 and Cramping of feet R25.2 [place] [id number] [place] [address] 99512- [phone] Nov, [facility], [place] [id number] [place] [address] 53847- 9783 Nov, [facility], [place] [id number] [place] [address] 64334- 4121 Oct, Chronic obstructive pulmonary disease, unspecified J44.9 [facility], [place] [id number] [place] [address] 41138- 4039 Oct, [facility], [place] [id number] [place] [address] 35174- 6156 Oct, Tremor R25.1 [facility], [place] [id number] [place] [address] 84789- 1359 Oct, Bipolar I disorder with depression F31.9 ; Diabetes E11.9 ; PTSD (post-traumatic stress disorder) F43.10 and Panic disorder with agoraphobia F40.01 [facility], [place] [id number] [place] [address] 85935- 4279 Oct, Mood disorder F39 [facility], [place] [id number] [place] [address] 34133- 8371 September, [facility], [place] [id number] [place] [address] 63405- 4511 September, Diabetes E11.9 ; Bipolar I disorder with depression F31.9 ; PTSD (post-traumatic stress disorder) F43.10 and Panic disorder with agoraphobia F40.01 [place] [id number] [place] [address] 70757- 6022 September, Mood disorder F39 ; Schizoaffective disorder, unspecified type F25.9 ; Arthritis M19.90 ; Tremor R25.1 ; Acute non-recurrent frontal sinusitis J01.10 and Blood in stool K92.1 [place] [address] 54769- 3946 September, [place] [id number] [place] [address] 36713- 0082 September, Chronic obstructive pulmonary disease, unspecified J44.9 [place] [address] 97125- 6254 September, Diabetes E11.9 [place] [address] 23131- 3652 Aug, Other bipolar disorder F31.89 and Anxiety disorder, unspecified F41.9 [place] [id number] [place] [address] 47624- 4760 Aug, [place] [address] 42990- 2496 Aug, Diabetes E11.9 [place] [id number] [place] [address] 54977- 5903 Aug, [place] [address] 44865- 7452 14 Aug, 2015 Diabetes E11.9 ; Fatigue R53.83 and Dizziness R42 [place] [id number] [place] [address] 77027- 1626 Aug, Other bipolar disorder F31.89 [place] [id number] [address] 8886 Aug, Generalized anxiety disorder F41.1 [facility], [place] [id number] [place] [address] 72771- 8146 Aug, Other bipolar disorder F31.89 and Anxiety disorder, unspecified F41.9 [facility], [place] [id number] [place] [address] 72129- 5466 Aug, [facility], [place] [id number] [place] [address] 21249- 6312 Jul, [facility], [place] [id number] [place] [address] 85338- 7646 Jul, [facility], [place] [id number] [place] [address] 43586- 8366 Jul, Bronchitis J40 [facility], [place] [id number] [place] [address] 84888- 2150 Jul, Anxiety disorder F41.9 [facility], [place] [id number] [place] [address] 18805- 1456 Jul, Other bipolar disorder F31.89 and Anxiety disorder, unspecified F41.9 [facility], [place] [address] [address]- 7414 Jul, Other bipolar disorder F31.89 and Fibromyalgia M79.7 [facility], [place] [address] [address]- 2172 Jul, [facility], [place] [id number] [address]- 6105 Jul, [facility], [place] [id number] [place] [address] 87223- 0656 Jul, [facility], [place] [id number] [address]- 6967 Jul, Other bipolar disorder F31.89 and Anxiety disorder, unspecified F41.9 [facility], [place] [id number] [place] [address] 30494- 0526 Jun, GERD (gastroesophageal reflux disease) K21.9 [facility], [place] [address] 14963- 6010 Jun, [facility], [place] [id number] [place] [address] 62375- 2201 May, [facility], [place] [address] 80040- 2039 May, Diabetes E11.9 ; Back pain M54.9 ; GERD (gastroesophageal reflux disease) K21.9 ; Hypertension I10 and Peripheral neuropathy G62.9 [facility], [place] [address] 67618- 9867 Mar, [facility], [place] [address] 08441- 6966 Mar, [facility], [place] [address] 81949- 9226 Mar, Acute sinusitis J01.90 and Otitis media, left H66.92 [facility], [place] [address] 43269- 1073 Feb, [facility], [place] [id number] [place] [address] 55369- 9527 Feb, [facility], [place] [id number] [place] [address] 34925- 5179 15 Feb, 2015 [facility], [place] [id number] [place] [address] 87401- 8766 Feb, [facility], [place] [address] 46199- 8925 29 Jan, 2015 [facility], [place] [id number] [place] [address] 42697955- 4383 24 Jan, 2015 Diabetes 250.00 and Back pain 724.5 [facility], [place] [address] 32753- 7482 Jan, [facility], [place] [id number] [place] [address] 35313- 5657 Dec, Diabetes 250.00 ; Benign essential hypertension 401.1 and Allergic rhinitis 477.9 [facility], [place] [id number] [place] [address] 44723- 9564 Dec, [facility], [place] [id number] [place] [address] 81978- 0328 Dec, [facility], [place] [id number] [place] [address] 89174- 7027 Dec, Psychosis 298.9 [facility], [place] [id number] [place] [address] 63377- 7648 Dec, Medication side effect 995.20 and Generalized anxiety disorder 300.02 [facility], [place] [id number] [place] [address] 40871- 1941 Dec, Acquired cognitive dysfunction 294.9 [facility], [place] [id number] [place] [address] 91134- 3665 Dec, [facility], [place] [id number] [place] [address] 08350- 9995 Dec, Unspecified myalgia and myositis 729.1 and Generalized anxiety disorder 300.02 [facility], [place] [id number] [place] [address] 05974- 4649 Nov, [facility], [place] [id number] [place] [address] 22277- 0846 Nov, [facility], [place] [id number] [place] [address] 81721- 4668 Nov, [facility], [place] [id number] [place] [address] 38833- 7640 Nov, Upper respiratory infection 465.9 and Chronic airway obstruction, not elsewhere classified 496 [facility], [place] [id number] [place] [address] 83358- 0632 Nov, Hyponatremia 276.1 [facility], [place] [address] [address]- 1965 Oct, [facility], [place] [id number] [address]- 3482 Oct, [facility], [place] [id number] [address]- 7885 Oct, [facility], [place] [id number] [place] [address] 12518- 3417 Oct, [facility], [place] [id number] [address]- 0257 Oct, Hyponatremia 276.1 [facility], [place] [id number] [address]- 0937 Oct, [facility], [place] [id number] [place] [address] 21827- 7189 Oct, [facility], [place] [id number] [address]- 0398 Oct, Generalized anxiety disorder 300.02 [facility], [place] [id number] [place] [address] 10039- 3965 Oct, Generalized anxiety disorder 300.02 and Diabetes 250.00 [facility], [place] [id number] [address]- 4110 Aug, [facility], [place] [id number] [address]- 6887 Aug, [facility], [place] [id number] [address]- 8346 Jul, [facility], [place] [id number] 5449 Jul, [facility], [place] [id number] 2193 Jun, [facility], [place] [id number] [address]- 1563 Jun, [facility] [address] [id number] [place] [address]- 8786 Jun, [facility] [place] [facility] [address] [id number] [place] [address]- 1706 Jun, [facility] [place] [facility] [address] [id number] [place] [address]- 7466 Jun, [facility] [place] [facility] [address] [id number] [place] [address]- 0104 May, [facility] [address] [id number] [place] [address]- 8177 May, [facility] [place] [facility] [address] [id number] [place] [address]- 4567 Apr, [facility] [address] [id number] [place] [address]- 9232 Apr, [facility] [place] [facility] [address] [id number] [place] [address]- 9073 Apr, [facility] [place] [facility] [address] [id number] [place] [address]- 9153 Apr, [facility] [place] [facility] [address] [facility] [id number] [place] [address]- 6051 Apr, [facility] [place] [facility] [address] [id number] [place] [address]- 4264 Apr, [facility] [place] [facility] [address] [id number] [place] [address]- 7407 Apr, [facility] [place] [facility] [address] [id number] [place] [address]- 2647 Apr, [facility] [place] [facility] [address] [id number] [place] [address]- 3396 Feb, [facility] [place] [facility] [address] [id number] [place] [address]- 0448 Feb, [facility] [place] [facility] [address] [id number] [place] [address]- 5753 Jan, [facility] [address] [id number] [place] [address]- 8708 Jan, [facility] [place] [facility] [address] [id number] [place] [address]- 2546 Dec, [facility] [place] [facility] [address] [id number] [place] [address]- 9642 Dec, [facility] [address] [id number] [place] [address]- 3962 Dec, [facility] [place] [facility] [address] [id number] [place] [address]- 6996 Nov, [facility] [address] [id number] [place] [address]- 5029 Nov, [facility] [address] [id number] [place] [address]- 7523 Nov, [facility] [address] [id number] [place] [address]- 6914 Oct, [facility] [address] [id number] [place] [address]- 8761 Oct, [facility] [place] [facility] [address] [id number] [place] [address]- 9201 Oct, [facility] [address] [id number] [place] [address]- 6576 September, [facility] [place] [facility] [address] [id number] [place] [address]- 0889 September, [facility] [place] [facility] [address] [id number] [place] [address]- 8956 September, [facility] [place] [facility] [address] [id number] [place] [address]- 9630 Aug, [facility] [place] [facility] [address] [id number] [place] [address]- 6716 20 Aug, 2011 [facility] [address] [id number] [place] [address]- 9039 19 Aug, 2011 [facility] [address] [id number] [place] [address]- 8116 16 Aug, 2011 [facility] [address] [id number] [place] [address]- 2188 Jul, [facility] [address] [id number] [place] [address]- 0526 Jun, [facility] [address] [id number] [place] [address]- 7840 14 Jun, 2011 [facility] [address] [id number] [place] [address]- 0994 13 Jun, 2011 [facility] [address] [id number] [place] [address]- 5368 07 Jun, 2011 [facility] [address] [id number] [place] [address]- 6003 Jun, [facility] [address] [id number] [place] [address]- 2068 May, [facility] [address] [facility] [id number] [place] [address]- 4753 May, [facility] [address] [id number] [place] [address]- 4938 May, [facility] [place] [facility] [address] [id number] [place] [address]- 3814 May, [facility] [address] [id number] [place] [address]- 3131 Apr, [facility] [place] [facility] [address] [id number] [place] [address]- 4555 13 Apr, 2011 [facility] [place] [facility] [address] [facility] [id number] [place] [address]- 9873 05 Apr, 2011 [facility] [place] [facility] [address] [id number] [place] [address]- 3435 Mar, [facility] [place] [facility] [address] [id number] [place] [address]- 5461 Mar, [facility] [place] [facility] [address] [id number] [place] [address]- 2546 Mar, [facility] [place] [facility] [address] [id number] [place] [address]- 0356 13 Feb, 2011 [facility] [place] [facility] [address] [id number] [place] [address]- 6049 Feb, [facility] [place] [facility] [address] [id number] [place] [address]- 9715 Feb, [facility] [place] [facility] [address] [id number] [place] [address]- 5505 Nov, [facility] [place] [facility] [address] [id number] [place] [address]- 5256 September, [facility] [place] [facility] [address] [id number] [place] [address]- 2181 Aug, [facility] [place] [facility] [address] [id number] [place] [address]- 1703 Jul, [facility] [place] [facility] [address] [id number] [place] [address]- 0000 May, [facility] [place] [facility] [address] [id number] [place] [address]- 5317 Apr, [facility] [place] [facility] [address] [id number] [place] [address]- 3356 30 Apr, 2010 [facility] [place] [facility] [address] [id number] [place] [address]- 0306 Apr, [facility] [place] [facility] [address] [id number] [place] [address]- 1396 Apr, [facility] [place] [facility] [address] [id number] [place] [address]- 5519 Apr, IMMUNIZATIONS No Known Immunizations SOCIAL HISTORY Never Assessed REASON FOR VISIT refills PLAN OF CARE VITAL SIGNS MEDICATIONS Medication Instructions Dosage Frequency Start Date End Date Duration Status Loxapine Succinate 10 mg Orally twice a day 1 capsule 12h September, 30 days Active Lorazepam 2 MG Orally in the AM and noon and 4pm 1 tablet Jul, Active RESULTS No Results PROCEDURES No Known [...]
--- OUTSIDE RECORDS SUMMARY | 2017-11-18 07:30 | XMS REPORT ---
Author Author WHIT GANDHI [facility] Address [address] [place] [address] Care Team Providers Care Overhead Door Technician Name Role Phone WHIT GANDHI Unavailable PROBLEMS Type Condition ICD9-CM Code UXA18-AP Code Onset Dates Condition Status SNOMED Code Problem Back pain M54.9 Active 931074426 Problem GERD (gastroesophageal reflux disease) K21.9 Active 641929955 Problem Diabetes E11.9 Active 34290089 Problem Hypertension I10 Active 75919205 Problem Acute non-recurrent maxillary sinusitis J01.00 Active 59096222 Problem Anxiety disorder, unspecified F41.9 Active 913500293 Problem Bipolar 1 disorder, depressed, partial remission F31.75 Active 95619798 Problem Other bipolar disorder F31.89 Active 27886620 Problem Mild persistent asthma without complication J45.30 Active 124150100 Problem Panlobular emphysema J43.1 Active 6175332 Problem Moderate persistent asthma without complication J45.40 Active 786859868 Problem Irritable bowel syndrome with constipation K58.1 Active 406308716 Problem Arthritis M19.90 Active 3210901 Problem Chronic obstructive pulmonary disease, unspecified J44.9 Active 68642854 Problem Panic disorder with agoraphobia F40.01 Active 82530035 Problem Fibromyalgia M79.7 Active 47003254 Problem Migraine without aura and without status migrainosus, not intractable G43.009 Active 381268821 Problem Akathisia G25.71 Active 753891920 Problem Fibrocystic disease of right breast N60.11 Active 02986893 Problem Fibrocystic disease of left breast N60.12 Active 09870535 Problem Lumbago with sciatica, right side M54.41 Active 651665782 Problem Bipolar 1 disorder, depressed, moderate F31.32 Active 52459443 Problem Other chronic pain G89.29 Active 14877645 Problem Lumbago with sciatica, left side M54.42 Active 157028328 Problem Attention deficit hyperactivity disorder (ADHD), predominantly inattentive type F90.0 Active 05982054 Problem Bipolar I disorder with depression F31.9 Active 02270108 Problem Chronic post-traumatic stress disorder (PTSD) F43.12 Active 773304092 Problem Bipolar affective disorder, remission status unspecified F31.9 Active 99757305 ALLERGIES No Information ENCOUNTERS Encounter Location Date Diagnosis [facility] [id number] [place] [address] 98418- 0777 18 Aug, 2017 [facility] [address] 75461- 5158 Aug, [facility] [id number] [place] [address] 42074- 9208 Aug, [place] [address] 11721- 5708 Jul, [place] [address] 48215- 0481 Jul, Mild persistent asthma without complication J45.30 [place] [id number] [place] [address] 00643- 8195 19 Jul, 2017 Mild persistent asthma without complication J45.30 [place] [id number] [place] [address] 06643- 0725 15 Jul, 2017 Bipolar affective disorder, remission status unspecified F31.9 ; Diabetes E11.9 and Irritable bowel syndrome with constipation K58.1 [place] [id number] [place] [address] 38252- 6296 Jul, [facility] [id number] [place] [address] 37895- 1148 Jul, [place] [id number] [place] [address] 77725- 3389 Jul, Frequent headaches R51 [facility] [id number] [place] [address] 81461- 8347 07 Jul, 2017 [place] [address] 48081- 9958 Jul, [place] [id number] [place] [address] 18925- 9159 Jul, [place] [address] 88974- 3302 Jul, Frequent headaches R51 ; Fibrocystic disease of left breast N60.12 ; Fibrocystic disease of right breast N60.11 and Diabetes E11.9 [place] [id number] [place] [address] 27590- 7139 Jul, [place] [id number] [place] [address] 43563- 2068 Jul, [place] [address] 69440- 2091 Jun, Exudative tonsillitis J03.90 [place] [address] 80353- 0074 Jun, [place] [facility] [id number] [place] [address] 79252- 7410 Jun, [place] [id number] [place] [address] 58471- 3622 15 Jun, 2017 Mild persistent asthma without complication J45.30 ; Chronic obstructive pulmonary disease, unspecified COPD type J44.9 and Exudative tonsillitis J03.90 [place] [id number] [place] [address] 26648- 3605 13 Jun, 2017 Encounter for immunization Z23 [facility] [facility] [id number] [place] [address] 88706- 7804 Jun, [place] [address] 31594- 4803 Jun, [place] [id number] [place] [address] 09736- 2869 Jun, [facility] [id number] [place] [address] 08364 -8801 06 Jun, 2017 Tonsillitis J03.90 [place] [address] 78628- 8843 05 Jun, 2017 [place] [address]- 4835 Jun, Acute non-recurrent maxillary sinusitis J01.00 [place] [address] 11602- 6718 Jun, [place] [address] 24338- 1984 May, [place] [address] 05870- 1342 May, [place] [address] 02895- 8864 May, GERD (gastroesophageal reflux disease) K21.9 [place] [address] 01313- 3913 May, Migraine without aura and without status migrainosus, not intractable G43.009 [place] [address] 11606- 9195 May, [place] [address] 60716- 7636 May, [place] [address] 10225- 4261 May, Panlobular emphysema J43.1 and Acute non-recurrent maxillary sinusitis J01.00 [place] [address] 42131- 7284 May, Bipolar 1 disorder, depressed, moderate F31.32 ; Panic disorder with agoraphobia F40.01 and Akathisia G25.71 [place] [address] 76768- 3706 Apr, [place] [id number] [place] [address] 42788- 3862 14 Apr, 2017 [facility] [address] 25120- 3757 Apr, Acute non-recurrent maxillary sinusitis J01.00 [facility] [address] 61983- 7619 07 Apr, 2017 Panlobular emphysema J43.1 [facility] [address] 43121- 9181 04 Apr, 2017 [facility] [address] 40392 -9427 04 Apr, 2017 Sore throat J02.9 and Exudative tonsillitis J03.90 [place] [address] 75941- 7605 17 Mar, 2017 [facility] [address] 53133- 8963 15 Mar, 2017 Acute non-recurrent maxillary sinusitis J01.00 [place] [address] 84556- 7971 Mar, [facility] [id number] [place] [address] 84686- 2554 Mar, Panlobular emphysema J43.1 and Diabetes E11.9 [facility] [address] 77050- 2497 Mar, [facility] [id number] [place] [address] 89027 -9022 Feb, Wheezing R06.2 and Acute recurrent pansinusitis J01.41 [facility] [id number] [place] [address] 71446- 7492 Feb, [facility] [id number] [place] [address] 19426- 9123 Feb, Acute non-recurrent maxillary sinusitis J01.00 [facility] [id number] [place] [address] 219117- 6595 16 Feb, 2017 Chronic obstructive pulmonary disease, unspecified J44.9 [facility] [address] 254 02 Feb, 2017 Hypoxemia R09.02 and Chronic obstructive pulmonary disease, unspecified J44.9 [facility] [address] [place] [address]- 9607 28 Jan, 2017 Bipolar 1 disorder, depressed, moderate F31.32 ; Panic disorder with agoraphobia F40.01 ; Chronic post-traumatic stress disorder (PTSD ) F43.12 ; Diabetes E11.9 and Moderate persistent asthma without complication J45.40 [facility] [address]- 254 22 Jan, 2017 [facility] [address] 870916- 3268 19 Jan, 2017 Acute non-recurrent maxillary sinusitis J01.00 [facility] [address] 60809- 2880 18 Jan, 2017 [facility] [address] 50072 254 18 Jan, 2017 [facility] [address] 24007 2542 Jan, Moderate persistent asthma without complication J45.40 and Hypoxemia R09.02 [facility] [address] 90364 2546 11 Jan, 2017 Moderate persistent asthma without complication J45.40 and Hypoxemia R09.02 [facility] [address] 58434 2546 Jan, [facility] [address] 53299- 2541 Dec, Acute non-recurrent maxillary sinusitis J01.00 [facility] [address] [place] [address]- 6160 Dec, Chronic obstructive pulmonary disease, unspecified J44.9 [facility] [id number] [place] [address] 20250- 6448 Dec, [facility] [id number] [place] [address] 13435- 8366 Dec, Mild persistent asthma without complication J45.30 and Other chronic pain G89.29 [facility] [id number] [place] [address] 08330- 8387 Nov, [facility] [id number] [place] [address] 35923- 9512 Nov, Acute non-recurrent maxillary sinusitis J01.00 [facility] [id number] [place] [address] 86562- 7599 Nov, [facility] [id number] [place] [address] 22635- 4894 Nov, [facility] [id number] [place] [address] 34143- 1717 Oct, [facility] [id number] [place] [address] 76983- 2565 Oct, Bipolar 1 disorder, depressed, partial remission F31.75 ; Panic disorder with agoraphobia F40.01 and Chronic post-traumatic stress disorder (PTSD) F43.12 [facility] [id number] [place] [address] 59436- 8805 Oct, Acute non-recurrent maxillary sinusitis J01.00 [facility] [id number] [place] [address] 87468- 3312 Oct, [facility] [id number] [place] [address] 77606- 1361 Oct, Diabetes E11.9 [facility] [id number] [place] [address] 12056- 5187 September, Diabetes E11.9 [facility] [id number] [place] [address] 67848- 8449 September, Diabetes E11.9 and Sinus tachycardia R00.0 [facility] [id number] [place] [address] 13052- 5243 September, [facility] [id number] [place] [address] 20912- 2906 September, [facility] [id number] [place] [address] 70804- 6083 Aug, Diabetes E11.9 and Lumbago with sciatica, right side M54.41 [facility] [id number] [place] [address] 25665- 0865 Aug, [facility] [id number] [place] [address] 55852- 1774 Jul, Bipolar 1 disorder, depressed, moderate F31.32 ; Panic disorder with agoraphobia F40.01 and Chronic post-traumatic stress disorder ( PTSD) F43.12 [facility] [id number] [place] [address] 90262- 8568 Jul, Sore throat J02.9 [facility] [id number] [place] [address] 87025- 4232 Jul, [facility] [id number] [place] [address] 51969- 2475 Jul, [facility] [id number] [place] [address] 79640- 5779 Jul, [facility] [id number] [place] [address] 45147- 7383 Jul, [facility] [id number] [place] [address] 42048- 2615 Jul, Sore throat J02.9 and Pharyngitis, unspecified etiology J02.9 [facility] [id number] [place] [address] 81915- 6317 Jun, [facility] [address] [address]- 2477 Jun, Diabetes E11.9 [facility] [id number] [address]- 2020 Jun, [facility] [address] [place] [address]- 2086 Jun, [facility] [address] [place] [address]- 8997 Jun, [facility] [address] [place] [address]- 4151 Jun, [facility] [address] [place] [address]- 8880 Jun, [facility] [address] [address]- 9060 Jun, [facility] [address] [place] [address]- 6373 Jun, [facility] [address] [address]- 3818 Jun, [facility] [address] [place] [address]- 2302 May, Diabetes E11.9 ; Bipolar I disorder with depression F31.9 ; Other chronic pain G89.29 ; Acute recurrent maxillary sinusitis J01.01 and Anxiety disorder, unspecified F41.9 [facility] [address] [address]- 1794 May, [facility] [address] [place] [address]- 4728 May, Diabetes E11.9 ; Bipolar I disorder with depression F31.9 ; Anxiety disorder, unspecified F41.9 ; Other chronic pain G89.29 and Acute recurrent maxillary sinusitis J01.01 [facility] [id number] [place] [address] 57398- 7611 May, [facility] [id number] [place] [address] 01587- 9442 May, Attention deficit hyperactivity disorder (ADHD), predominantly inattentive type F90.0 [place] [id number] [place] [address] 86975- 2600 May, [place] [id number] [place] [address] 35479- 3927 Apr, Attention deficit hyperactivity disorder (ADHD), predominantly inattentive type F90.0 and Non-seasonal allergic rhinitis due to other allergic trigger J30.89 [place] [id number] [place] [address] 37455- 4253 Apr, Bipolar 1 disorder, depressed, moderate F31.32 ; Panic disorder with agoraphobia F40.01 and Chronic post-traumatic stress disorder ( PTSD) F43.12 [place] [id number] [place] [address] 68136- 2835 Apr, Dental examination Z01.20 [place] [id number] [place] [address] 13254- 2425 Mar, [place] [id number] [place] [address] 56040- 1750 Mar, [place] [id number] [place] [address] 43776- 7709 Mar, Bipolar I disorder with depression F31.9 and Anxiety disorder, unspecified F41.9 [place] [id number] [place] [address] 33527- 2453 08 Mar, 2016 Panic disorder with agoraphobia F40.01 ; Bipolar 1 disorder , depressed, moderate F31.32 and Chronic post-traumatic stress disorder (PTSD) F43.12 [place] [id number] [place] [address] 20933- 7401 Mar, [place] [address] 60309- 1889 Mar, Dental caries K02.9 [place] [address] 96394- 9891 Feb, Lumbago with sciatica, left side M54.42 ; Lumbago with sciatica, right side M54.41 and Other chronic pain G89.29 [place] [address] 24260- 0360 Feb, [place] [address] 43790- 7002 14 Feb, 2016 [place] [address] 77050- 2209 Feb, Bipolar I disorder with depression F31.9 ; PTSD (post- traumatic stress disorder) F43.10 and Mood disorder F39 [place] [address] 33312- 2723 Feb, [place] [address] 42514- 9904 Feb, Dental examination Z01.20 [place] [address] 71655- 4252 07 Feb, 2016 [facility] [address] 89133 -2014 Feb, Acute bronchitis, unspecified organism J20.9 [place] [address] 59667- 0166 26 Jan, 2016 Mood disorder F39 ; Migraine without aura and without status migrainosus, not intractable G43.009 ; Irritable bowel syndrome, unspecified type K58.9 ; Diabetes E11.9 and Encounter for immunization Z23 [place] [address] 34597- 9697 15 Jan, 2016 [place] [address] 85797- 5189 Jan, [facility] [address], [place] [address]- 1344 Jan, [facility] [id number] [place] [address] 20766- 1635 Jan, [facility] [id number] [place] [address] 91997- 1742 Jan, [facility] [id number] [place] [address] 96941- 4806 Dec, Bipolar I disorder with depression F31.9 ; PTSD (post- traumatic stress disorder) F43.10 and Panic disorder with agoraphobia F40.01 [facility] [id number] [place] [address] 09176- 1073 Dec, Chronic obstructive pulmonary disease, unspecified COPD type J44.9 ; Tremor R25.1 and Anxiety F41.9 [facility] [id number] [place] [address] 92853- 2080 Dec, [facility] [id number] [place] [address] 68689- 8692 Nov, Tremors of nervous system R25.1 and Cramping of feet R25.2 [facility] [id number] [place] [address] 58755- 2314 Nov, [facility] [id number] [place] [address] 23656- 0013 Nov, [facility] [id number] [place] [address] 30309- 1131 Oct, Chronic obstructive pulmonary disease, unspecified J44.9 [facility] [id number] [place] [address] 45094- 6141 Oct, [facility] [id number] [place] [address] 39049- 9629 Oct, Tremor R25.1 [facility] [id number] [place] [address] 92749- 4546 Oct, Bipolar I disorder with depression F31.9 ; Diabetes E11.9 ; PTSD (post-traumatic stress disorder) F43.10 and Panic disorder with agoraphobia F40.01 [facility] [address] [address]- 1552 Oct, Mood disorder F39 [place] [id number] [place] [address] 92620- 2863 September, [place] [id number] [place] [address] 21304- 7522 September, Diabetes E11.9 ; Bipolar I disorder with depression F31.9 ; PTSD (post-traumatic stress disorder) F43.10 and Panic disorder with agoraphobia F40.01 [place] [id number] [place] [address] 80011- 9333 September, Mood disorder F39 ; Schizoaffective disorder, unspecified type F25.9 ; Arthritis M19.90 ; Tremor R25.1 ; Acute non-recurrent frontal sinusitis J01.10 and Blood in stool K92.1 [place] [id number] [place] [address] 02278- 6675 September, [place] [id number] [place] [address] 82883- 1836 September, Chronic obstructive pulmonary disease, unspecified J44.9 [place] [id number] [place] [address] 86003- 1714 September, Diabetes E11.9 [place] [id number] [place] [address] 33944- 4432 Aug, Other bipolar disorder F31.89 and Anxiety disorder, unspecified F41.9 [facility] [id number] [place] [address] 44850- 5242 Aug, [place] [id number] [place] [address] 44485- 7348 Aug, Diabetes E11.9 [facility] [id number] [place] [address] 29972- 3038 18 Aug, 2015 [facility] [id number] [place] [address] 49289- 3766 14 Aug, 2015 Diabetes E11.9 ; Fatigue R53.83 and Dizziness R42 [facility] [id number] [place] [address] 14929- 8526 13 Aug, 2015 Other bipolar disorder F31.89 [facility] [id number] [place] [address] 92684- 2446 07 Aug, 2015 Generalized anxiety disorder F41.1 [place] [id number] [place] [address] 91358- 6906 07 Aug, 2015 Other bipolar disorder F31.89 and Anxiety disorder, unspecified F41.9 [place] [id number] [place] [address] 46602- 4961 Aug, [facility] [id number] [place] [address] 86414- 6545 29 Jul, 2015 [facility] [id number] [place] [address] 32105- 0578 24 Jul, 2015 [facility] [id number] [place] [address] 92292- 6808 23 Jul, 2015 Bronchitis J40 [facility] [id number] [place] [address] 67132- 9427 Jul, Anxiety disorder F41.9 [facility] [id number] [place] [address] 16772- 6977 Jul, Other bipolar disorder F31.89 and Anxiety disorder, unspecified F41.9 [facility] [id number] [place] [address] 67825- 2292 18 Jul, 2015 Other bipolar disorder F31.89 and Fibromyalgia M79.7 [facility] [id number] [place] [address] 15793- 7277 Jul, [facility] [id number] [place] [address] 68598- 9274 Jul, [facility] [address] 49441- 5450 Jul, [facility] [id number] [place] [address] 45238- 3614 Jul, Other bipolar disorder F31.89 and Anxiety disorder, unspecified F41.9 [facility] [address] 21159- 9435 Jun, GERD (gastroesophageal reflux disease) K21.9 [facility] [address] 45440- 1314 Jun, [facility] [address] 76365- 8897 May, [facility] [address] 17127- 0435 May, Diabetes E11.9 ; Back pain M54.9 ; GERD (gastroesophageal reflux disease) K21.9 ; Hypertension I10 and Peripheral neuropathy G62.9 [facility] [id number] [place] [address] 35398- 5974 Mar, [facility] [id number] [place] [address] 19261- 0336 Mar, [facility] [id number] [place] [address] 62577- 9172 Mar, Acute sinusitis J01.90 and Otitis media, left H66.92 [facility] [address] 43363- 6359 Feb, [facility] [address] 92513- 0986 Feb, [facility] [id number] [place] [address] [id number]- 4525 Feb, [facility] [id number] [address] Feb, [facility] [id number] [place] [address] 37798- 4240 Jan, [facility] [id number] [place] [address] 84606- 4306 Jan, Diabetes 250.00 and Back pain 724.5 [facility] [id number] [place] [address] 19968- 2208 Jan, [facility] [id number] [place] [address] 87453- 8669 Dec, Diabetes 250.00 ; Benign essential hypertension 401.1 and Allergic rhinitis 477.9 [facility] [id number] [place] [address] 29311- 3215 Dec, [facility] [id number] [place] [address] 44788- 0948 Dec, [facility] [id number] [place] [address] 70125- 8729 Dec, Psychosis 298.9 [facility] [id number] [place] [address] 87306- 2365 Dec, Medication side effect 995.20 and Generalized anxiety disorder 300.02 [facility] [address] [id number] [place] [address] 97129- 4080 Dec, Acquired cognitive dysfunction 294.9 [facility] [id number] [place] [address] 52202- 2218 Dec, [facility] [id number] [place] [address] 15246- 4372 Dec, Unspecified myalgia and myositis 729.1 and Generalized anxiety disorder 300.02 [facility] [id number] [place] [address] 20641- 9824 Nov, [facility] [id number] [place] [address] 84688- 2963 Nov, [facility] [address] [address] 230[address] Nov, [facility] [id number] [place] [address] 58965- 2033 Nov, Upper respiratory infection 465.9 and Chronic airway obstruction, not elsewhere classified 496 [facility] [id number] [place] [address] 56841- 0486 Nov, Hyponatremia 276.1 [facility] [id number] [place] [address] 27822- 2329 Oct, [facility] [id number] [place] [address] 67977- 3575 Oct, [facility] [id number] [place] [address] 45176- 4284 Oct, [facility] [id number] [place] [address] 85089- 9018 Oct, [facility] [id number] [place] [address] 30551- 6140 Oct, Hyponatremia 276.1 [facility] [id number] [place] [address] 79849- 8169 Oct, [facility] [address] [address] 8491 Oct, [facility] [id number] [place] [address] 29502- 2402 Oct, Generalized anxiety disorder 300.02 [facility] [id number] [place] [address] 06268- 0025 Oct, Generalized anxiety disorder 300.02 and Diabetes 250.00 [facility] [address] [address] 6550 14 Aug, 2014 [facility] [id number] [place] [address] 65820- 8789 Aug, [facility] [place] [facility] [address] [id number] [place] [address]- 6249 Jul, [facility] [place] [facility] [address] [id number] [place] [address]- 9856 Jul, [facility] [place] [facility] [address] [id number] [place] [address]- 3695 Jun, [facility] [place] [facility] [address] [id number] [place] [address]- 4360 Jun, [facility] [place] [facility] [address] [id number] [place] [address]- 7275 Jun, [facility] [place] [facility] [address] [id number] [place] [address]- 9180 Jun, [facility] [place] [facility] [address] [id number] [place] [address]- 5905 Jun, [facility] [place] [facility] [address] [id number] [place] [address]- 8525 May, [facility] [place] [facility] [address] [id number] [place] [address]- 8419 May, [facility] [place] [facility] [address] [id number] [place] [address]- 0811 Apr, [facility] [place] [facility] [address] [id number] [place] [address]- 9668 Apr, [facility] [place] [facility] [address] [id number] [place] [address]- 9673 18 Apr, 2013 [facility] [place] [facility] [address] [id number] [place] [address]- 1872 18 Apr, 2013 [facility] [place] [facility] [address] [id number] [place] [address]- 7014 Apr, [facility] [place] [facility] [address] [id number] [place] [address]- 1285 17 Apr, 2013 [facility] [place] [facility] [address] [id number] [place] [address]- 2546 Apr, [facility] [address] [id number] [place] [address]- 9289 Apr, [facility] [place] [facility] [address] [id number] [place] [address]- 2546 Feb, [facility] [address] [id number] [place] [address]- 2540 Feb, [facility] [address] [id number] [place] [address]- 2543 Jan, [facility] [address] [id number] [place] [address]- 7153 Jan, [facility] [address] [id number] [place] [address]- 9121 Dec, [facility] [address] [id number] [place] [address]- 3249 Dec, [facility] [address] [id number] [place] [address]- 5343 Dec, [facility] [address] [id number] [place] [address]- 4967 Nov, [facility] [address] [id number] [place] [address]- 3439 Nov, [facility] [address] [id number] [place] [address]- 2547 Nov, [facility] [address] [id number] [place] [address]- 1900 Oct, [facility] [place] [facility] [address] [id number] [place] [address]- 5238 Oct, [facility] [place] [facility] [address] [id number] [place] [address]- 2546 Oct, [facility] [address] [id number] [place] [address]- 4944 September, [facility] [address] [id number] [place] [address]- 5117 September, [facility] [place] [facility] [address] [id number] [place] [address]- 9434 September, [facility] [place] [facility] [address] [id number] [place] [address]- 9499 Aug, [facility] [place] [facility] [address] [id number] [place] [address]- 1574 Aug, [facility] [address] [id number] [place] [address]- 3104 Aug, [facility] [place] [facility] [address] [id number] [place] [address]- 3447 16 Aug, 2011 [facility] [place] [facility] [address] [id number] [place] [address]- 5147 Jul, [facility] [place] [facility] [address] [id number] [place] [address]- 8469 Jun, [facility] [place] [facility] [address] [id number] [place] [address]- 5007 14 Jun, 2011 [facility] [place] [facility] [address] [id number] [place] [address]- 2310 Jun, [facility] [place] [facility] [address] [id number] [place] [address]- 3209 Jun, [facility] [place] [facility] [address] [id number] [place] [address]- 1478 Jun, [facility] [place] [facility] [address] [id number] [place] [address]- 1597 May, [facility] [place] [facility] [address] [id number] [place] [address]- 4655 May, [facility] [place] [facility] [address] [id number] [place] [address]- 9473 May, [facility] [place] [facility] [address] [id number] [place] [address]- 4048 04 May, 2011 [facility] [address] [id number] [place] [address]- 7329 Apr, [facility] [place] [facility] [address] [id number] [place] 7549 13 Apr, 2011 [facility] [place] [facility] [address] [id number] [place] [address]- 7356 05 Apr, 2011 [facility] [place] [facility] [address] [id number] [place] [address]- 3386 Mar, [facility] [place] [facility] [address] [id number] [place] [address]- 1512 Mar, [facility] [place] [facility] [address] [id number] [place] [address]- 5647 Mar, [facility] [place] [facility] [address] [id number] [place] [address]- 7311 Feb, [facility] [place] [facility] [address] [id number] [place] [address]- 5127 Feb, [facility] [place] [facility] [address] [id number] [place] [address]- 7774 Feb, [facility] [place] [facility] [address] [id number] [place] [address]- 0596 Nov, [facility] [place] [facility] [address] [id number] [place] [address]- 7184 September, [facility] [place] [facility] [address] [id number] [place] [address]- 7441 Aug, [facility] [place] [facility] [address] [id number] [place] [address]- 9926 14 Jul, 2010 [facility] [place] [facility] [address] [id number] [place] [address]- 7781 May, [facility] [place] [facility] [address] [id number] [place] [address]- 6095 Apr, [facility] [address] [facility] [id number] [place] [id number] 9750 Apr, [facility] [address] [facility] [id number] 8472 Apr, [facility] [address] [facility] [id number], [place] [address]- 6317 Apr, [facility] [address] [facility] [id number] 8571 Apr, IMMUNIZATIONS No Known Immunizations SOCIAL HISTORY Never Assessed REASON FOR VISIT Controlled Med Refill 12/03/16 PLAN OF CARE VITAL SIGNS MEDICATIONS Medication Instructions Dosage Frequency Start Date End Date Duration Status [place] 7.5-325 MG Orally 3 times a day 1 tablet as needed 8h Nov, 28 days Active Adderall 20 MG Orally Once a day 1 tablet in the morning 24h Nov, 28 days Active RESULTS No Results PROCEDURES [...]
--- OUTSIDE RECORDS SUMMARY | 2017-11-18 07:31 | XMS REPORT ---
Author Author WHIT GANDHI [facility] Address [address] [place] [address] Care Team Providers Care Answering Service Agent Name Role Phone WHIT GANDHI Unavailable PROBLEMS Type Condition ICD9-CM Code KTK10-IT Code Onset Dates Condition Status SNOMED Code Problem Back pain M54.9 Active 714136556 Problem Diabetes E11.9 Active 00117345 Problem GERD (gastroesophageal reflux disease) K21.9 Active 962326846 Problem Hypertension I10 Active 25194010 Problem Anxiety disorder, unspecified F41.9 Active 262964185 Problem Other bipolar disorder F31.89 Active 99519909 Problem Fibromyalgia M79.7 Active 87191260 Problem Panic disorder with agoraphobia F40.01 Active 66537377 Problem Panlobular emphysema J43.1 Active 5618378 Problem Chronic obstructive pulmonary disease, unspecified J44.9 Active 94383224 Problem Akathisia G25.71 Active 073226761 Problem Lumbago with sciatica, left side M54.42 Active 931098955 Problem Migraine without aura and without status migrainosus, not intractable G43.009 Active 439954488 Problem Fibrocystic disease of right breast N60.11 Active 77084000 Problem Fibrocystic disease of left breast N60.12 Active 07352218 Problem Slow transit constipation K59.01 Active 71185525 Problem Essential tremor G25.0 Active 391172863 Problem Bipolar 1 disorder, depressed, moderate F31.32 Active 26371938 Problem Other chronic pain G89.29 Active 55013354 Problem Lumbago with sciatica, right side M54.41 Active 789469113 Problem Irritable bowel syndrome with constipation K58.1 Active 509800587 Problem Arthritis M19.90 Active 0533534 Problem Schizoaffective disorder, bipolar type F25.0 Active 81024994 Problem Irritable bowel syndrome with both constipation and diarrhea K58.2 Active 75983261 Problem Attention deficit hyperactivity disorder (ADHD), predominantly inattentive type F90.0 Active 30180289 Problem Bipolar I disorder with depression F31.9 Active 30929446 Problem Chronic post-traumatic stress disorder (PTSD) F43.12 Active 430289230 Problem Bipolar affective disorder, remission status unspecified F31.9 Active 06207906 Problem Mild persistent asthma without complication J45.30 Active 388009721 Problem Moderate persistent asthma without complication J45.40 Active 703956526 Problem Acute non-recurrent maxillary sinusitis J01.00 Active 03668070 Problem Bipolar 1 disorder, depressed, partial remission F31.75 Active 76343193 ALLERGIES No Information ENCOUNTERS Encounter Location Date Diagnosis [facility] [id number] [place] [address] 65285- 2631 Nov, [facility] [address] 89966- 5208 Nov, [facility] [address] 42464- 2764 Nov, [facility] [address] 81230- 8418 Nov, Mild persistent asthma without complication J45.30 and Irritable bowel syndrome with both constipation and diarrhea K58.2 [facility] [address] 85135- 9775 Nov, [facility] [id number] [place] [address] 48665- 0088 Oct, [facility] [address] 97251- 2778 Oct, [facility] [id number] [place] [address] 58929- 6423 Oct, Type 2 diabetes mellitus with diabetic neuropathy, unspecified whether ferry terminal agent insulin use E11.40 ; Diabetes E11.9 ; Slow transit constipation K59.01 ; Edema of both legs R60.0 and Dysfunction of right eustachian tube H69.81 [facility] [id number] [place] [address] 49786- 0156 Oct, Frequent headaches R51 [facility] [address], [place] [address] 5[address] Oct, [facility] [address] [place] [address] 3441 Oct, [facility] [address] [place] [address] 2103 Oct, [facility] [id number] [place] [address] 72825- 4758 Oct, [facility] [address], [place] [address]- 4955 Oct, [facility] [id number] [place] [address] 05458- 3244 Oct, [facility] [id number] [place] [address] 40837- 5174 Oct, [facility] [address] [place] [address]- 4647 Oct, [facility] [id number] [place] [address] 54823- 9017 September, Frequent headaches R51 [facility] [id number] [place] [address] 94358- 8345 September, Bilateral otitis media with effusion H65.93 ; Dizziness R42 and Essential tremor G25.0 [facility] [address], [place] [address] 2126 September, Chronic obstructive pulmonary disease, unspecified COPD type J44.9 [facility] [address], [place] [address]- 5831 September, Chronic obstructive pulmonary disease, unspecified COPD type J44.9 [facility] [address], [place] [address]- 3083 September, Migraine without aura and without status migrainosus, not intractable G43.009 [facility] [address], [place] [address]- 6858 September, [facility] [address], [place] [address]- 0668 September, [facility] [id number] [place] [address] 80357- 3604 September, [facility] [id number] [place] [address] 49415- 1809 September, Frequent headaches R51 [facility] [id number] [place] [address] 18673- 0974 Aug, [facility] [id number] [place] [address] 76723- 2674 Aug, Breast mass, right N63.10 [facility] [id number] [place] [address] 05086- 8765 Aug, Breast lump N63.0 [facility] [id number] [place] [address] 56693- 0493 Aug, [facility] [id number] [place] [address] 66810- 2622 Aug, Bipolar affective disorder, remission status unspecified F31.9 and Diabetes E11.9 [facility] [address] [place] [address] 54409- 6587 Aug, Diabetes E11.9 ; Schizoaffective disorder, bipolar type F25.0 ; Pharyngitis due to other organism J02.8 ; Panlobular emphysema J43.1 and Irritable bowel syndrome with both constipation and diarrhea K58.2 [facility] [id number] [place] [address] 19061- 0564 Aug, Abnormal mammogram R92.8 [facility] [id number] [place] [address] 69286- 6249 Aug, [facility] [address] [place] [address] 01272- 1551 Aug, Bipolar 1 disorder, depressed, moderate F31.32 ; Panic disorder with agoraphobia F40.01 and Chronic post-traumatic stress disorder ( PTSD) F43.12 [facility] [id number] [place] [address] 95653- 1099 Aug, [facility] [id number] [place] [address] 85149- 3957 Aug, [facility] [address] 19251- 6806 Aug, [facility] [id number] [place] [address] 76764- 6577 Jul, [facility] [address] 57088- 1821 Jul, Mild persistent asthma without complication J45.30 [facility] [id number] [place] [address] 99003- 5479 Jul, Mild persistent asthma without complication J45.30 [facility] [id number] [place] [address] 10792- 4271 15 Jul, 2017 Bipolar affective disorder, remission status unspecified F31.9 ; Diabetes E11.9 and Irritable bowel syndrome with constipation K58.1 [facility] [id number] [place] [address] 45377- 7640 Jul, [facility] [id number] [place] [address] 05528- 0607 Jul, [facility] [id number] [place] [address] 94648- 9220 Jul, Frequent headaches R51 [facility] [id number] [place] [address] 75918- 5707 07 Jul, 2017 [facility] [id number] [place] [address] 47282- 3313 Jul, [facility] [id number] [place] [address] 61255- 1133 Jul, [facility] [id number] [place] [address] 62913- 2029 05 Jul, 2017 Frequent headaches R51 ; Fibrocystic disease of left breast N60.12 ; Fibrocystic disease of right breast N60.11 and Diabetes E11.9 [facility] [id number] [place] [address] 33375- 1292 02 Jul, 2017 [facility] [address] 78194- 9922 02 Jul, 2017 [facility] [id number] [place] [address] 51451- 3935 21 Jun, 2017 Exudative tonsillitis J03.90 [facility] [address] 75112- 0786 20 Jun, 2017 [facility] [id number] [place] [address] 62975- 1557 19 Jun, 2017 [facility] [id number] [place] [address] 19263- 4134 15 Jun, 2017 Mild persistent asthma without complication J45.30 ; Chronic obstructive pulmonary disease, unspecified COPD type J44.9 and Exudative tonsillitis J03.90 [facility] [id number] [place] [address] 45687- 8641 13 Jun, 2017 Encounter for immunization Z23 [facility] [id number] [place] [address] 67857- 0748 Jun, [facility] [id number] [place] [address] 12350- 3768 12 Jun, 2017 [facility] [id number] [place] [address] 83869- 5678 09 Jun, 2017 [facility] [id number] [place] [address] 83581 -1939 06 Jun, 2017 Tonsillitis J03.90 [facility] [id number] [place] [address] 70094- 6370 05 Jun, 2017 [facility] [id number] [place] [address] 82774- 5972 03 Jun, 2017 Acute non-recurrent maxillary sinusitis J01.00 [facility] [id number] [place] [address] 49940- 6021 Jun, [facility] [address] 43341- 5815 May, [facility] [address] 13254- 3659 May, [facility] [address] 91070- 8468 May, GERD (gastroesophageal reflux disease) K21.9 [facility] [address] 95597- 5730 May, Migraine without aura and without status migrainosus, not intractable G43.009 [facility] [id number] [place] [address] 74989- 1057 May, [facility] [address] 69423- 2754 May, [facility] [id number] [place] [address] 33755- 4522 May, Panlobular emphysema J43.1 and Acute non-recurrent maxillary sinusitis J01.00 [facility] [id number] [place] [address] 57250- 3678 May, Bipolar 1 disorder, depressed, moderate F31.32 ; Panic disorder with agoraphobia F40.01 and Akathisia G25.71 [facility] [address] 20136- 9619 Apr, [facility] [address] 12444- 4568 Apr, [facility] [address] [place] [address]- 8646 13 Apr, 2017 Acute non-recurrent maxillary sinusitis J01.00 [facility] [id number] [place] [address] 73909- 6744 07 Apr, 2017 Panlobular emphysema J43.1 [facility] [id number] [place] [address] 44634- 6557 Apr, [facility] [address] 43838 -2207 Apr, Sore throat J02.9 and Exudative tonsillitis J03.90 [facility] [address] 99737- 5471 Mar, [facility] [address] 22471- 8951 15 Mar, 2017 Acute non-recurrent maxillary sinusitis J01.00 [facility] [address] 90454- 3467 Mar, [facility] [address] 66288- 9495 Mar, Panlobular emphysema J43.1 and Diabetes E11.9 [facility] [id number] [place] [address] 78804- 7739 Mar, [facility] [id number] [place] [address] 77350 -2383 Feb, Wheezing R06.2 and Acute recurrent pansinusitis J01.41 [facility] [id number] [place] [address] 93238- 4910 Feb, [facility] [address] 38355- 3929 Feb, Acute non-recurrent maxillary sinusitis J01.00 [facility] [id number] [place] [address] 16368- 3270 Feb, Chronic obstructive pulmonary disease, unspecified J44.9 [facility] [id number] [place] [address] 38870 2546 02 Feb, 2017 Hypoxemia R09.02 and Chronic obstructive pulmonary disease, unspecified J44.9 [facility] [id number] [place] [address] 43963 2546 28 Jan, 2017 Bipolar 1 disorder, depressed, moderate F31.32 ; Panic disorder with agoraphobia F40.01 ; Chronic post-traumatic stress disorder (PTSD ) F43.12 ; Diabetes E11.9 and Moderate persistent asthma without complication J45.40 [facility] [id number] [place] [address] 41630 2546 22 Jan, 2017 [facility] [id number] [place] [address] 39090 2546 19 Jan, 2017 Acute non-recurrent maxillary sinusitis J01.00 [facility] [id number] [place] [address] 29460 2546 18 Jan, 2017 [facility] [id number] [place] [address] 41780 2546 18 Jan, 2017 [facility] [id number] [place] [address] 48760 2546 Jan, Moderate persistent asthma without complication J45.40 and Hypoxemia R09.02 [facility] [address] [place] [address] 53935 2546 Jan, Moderate persistent asthma without complication J45.40 and Hypoxemia R09.02 [facility] [id number] [place] [address] 66254 2546 Jan, [facility] [id number] [place] [address] 04277 2546 Dec, Acute non-recurrent maxillary sinusitis J01.00 [facility] [id number] [place] [address] 68823 2546 Dec, Chronic obstructive pulmonary disease, unspecified J44.9 [facility] [address] [place] [address]- 8019 Dec, [facility] [address] [place] [address] 57855- 0504 Dec, Mild persistent asthma without complication J45.30 and Other chronic pain G89.29 [facility] [id number] [place] [address] 41438- 5050 Nov, [facility] [id number] [place] [address] 91002- 6567 Nov, Acute non-recurrent maxillary sinusitis J01.00 [facility] [id number] [place] [address] 13055- 3516 Nov, [facility] [id number] [place] [address] 85291- 9869 Nov, [facility] [id number] [place] [address] 88204- 4951 Oct, [facility] [id number] [place] [address] 15298- 7131 Oct, Bipolar 1 disorder, depressed, partial remission F31.75 ; Panic disorder with agoraphobia F40.01 and Chronic post-traumatic stress disorder (PTSD) F43.12 [facility] [address], [place] [address]- 9087 Oct, Acute non-recurrent maxillary sinusitis J01.00 [facility] [address], [place] [address]- 4512 Oct, [facility] [id number] [place] [address] 98810- 9244 Oct, Diabetes E11.9 [facility] [id number] [place] [address] 88516- 4158 September, Diabetes E11.9 [facility] [address], [place] [address]- 7324 September, Diabetes E11.9 and Sinus tachycardia R00.0 [facility] [address] [place] [address]- 2724 September, [facility] [id number] [place] [address] 33646- 4204 September, [facility] [id number] [place] [address] 32788- 2851 Aug, Diabetes E11.9 and Lumbago with sciatica, right side M54.41 [facility] [id number] [place] [address] 30561- 1581 Aug, [facility] [id number] [place] [address] 20060- 3965 Jul, Bipolar 1 disorder, depressed, moderate F31.32 ; Panic disorder with agoraphobia F40.01 and Chronic post-traumatic stress disorder ( PTSD) F43.12 [facility] [id number] [place] [address] 94401- 6358 Jul, Sore throat J02.9 [facility] [id number] [place] [address] 72609- 7250 Jul, [facility] [id number] [place] [address] 77977- 7283 Jul, [facility] [id number] [place] [address] 24768- 1876 Jul, [facility] [id number] [place] [address] 61614- 0728 Jul, [facility] [address] [place] [address] 85120- 9382 Jul, Sore throat J02.9 and Pharyngitis, unspecified etiology J02.9 [facility] [id number] [place] [address] 17284- 3290 Jun, [facility] [id number] [place] [address] 76775- 0711 Jun, Diabetes E11.9 [facility] [address], [place] [address]- 4067 Jun, [facility] [address], [place] [address]- 9636 Jun, [facility] [address], [place] [address]- 3257 Jun, [facility] [id number] [place] [address] 68226- 6739 Jun, [facility] [address], [place] [address]- 0001 Jun, [facility] [id number] [place] [address] 34684- 4760 Jun, [facility] [address], [place] [address]- 9572 Jun, [facility] [address], [place] [address]- 7286 Jun, [facility] [address], [place] [address]- 3577 May, Diabetes E11.9 ; Bipolar I disorder with depression F31.9 ; Other chronic pain G89.29 ; Acute recurrent maxillary sinusitis J01.01 and Anxiety disorder, unspecified F41.9 [facility] [address], [place] [address]- 7335 May, [facility] [address], [place] [address]- 6803 May, Diabetes E11.9 ; Bipolar I disorder with depression F31.9 ; Anxiety disorder, unspecified F41.9 ; Other chronic pain G89.29 and Acute recurrent maxillary sinusitis J01.01 [facility] [address], [place] [address]- 0564 May, [facility] [id number] [place] [address] 72626- 4282 May, Attention deficit hyperactivity disorder (ADHD), predominantly inattentive type F90.0 [facility] [id number] [place] [address] 73661- 0543 May, [facility] [id number] [place] [address] 20584- 7717 Apr, Attention deficit hyperactivity disorder (ADHD), predominantly inattentive type F90.0 and Non-seasonal allergic rhinitis due to other allergic trigger J30.89 [facility] [id number] [place] [address] 19547- 9018 Apr, Bipolar 1 disorder, depressed, moderate F31.32 ; Panic disorder with agoraphobia F40.01 and Chronic post-traumatic stress disorder ( PTSD) F43.12 [facility] [id number] [place] [address] 16094- 5195 Apr, Dental examination Z01.20 [facility] [id number] [place] [address] 17400- 7384 Mar, [facility] [id number] [place] [address] 95676- 9203 Mar, [facility] [id number] [place] [address] 39682- 6430 Mar, Bipolar I disorder with depression F31.9 and Anxiety disorder, unspecified F41.9 [facility] [id number] [place] [address] 98504- 8806 08 Mar, 2016 Panic disorder with agoraphobia F40.01 ; Bipolar 1 disorder , depressed, moderate F31.32 and Chronic post-traumatic stress disorder (PTSD) F43.12 [facility] [id number] [place] [address] 53703- 0374 04 Mar, 2016 [facility] [id number] [place] [address] 26206- 4712 Mar, Dental caries K02.9 [facility] [address] [place] [address]- 2340 Feb, Lumbago with sciatica, left side M54.42 ; Lumbago with sciatica, right side M54.41 and Other chronic pain G89.29 [facility] [id number] [place] [address] 12251- 0032 17 Feb, 2016 [facility] [address] 18193- 0529 Feb, [facility] [address] 72991- 5990 Feb, Bipolar I disorder with depression F31.9 ; PTSD (post- traumatic stress disorder) F43.10 and Mood disorder F39 [facility] [address] 05628- 6416 Feb, [facility] [address] 59339- 9149 Feb, Dental examination Z01.20 [facility] [id number] [place] [address] 48049- 9687 07 Feb, 2016 [facility] [address] 104[address] Feb, Acute bronchitis, unspecified organism J20.9 [place] [address] [place] [id number] [place] [address] Jan, Mood disorder F39 ; Migraine without aura and without status migrainosus, not intractable G43.009 ; Irritable bowel syndrome, unspecified type K58.9 ; Diabetes E11.9 and Encounter for immunization Z23 [facility] [address] [place] [id number] [place] [phone] 15 Jan, 2016 [place] [address] [phone] 06 Jan, 2016 [facility] [address] [place] [id number] [place] [phone] Jan, [place] [id number] [address] Jan, [facility] [id number] [place] [phone] Jan, [facility] [id number] [address] Dec, Bipolar I disorder with depression F31.9 ; PTSD (post- traumatic stress disorder) F43.10 and Panic disorder with agoraphobia F40.01 [facility] [id number] [address]- 7423 Dec, Chronic obstructive pulmonary disease, unspecified COPD type J44.9 ; Tremor R25.1 and Anxiety F41.9 [facility] [address], [place] [address] Dec, [facility] [id number] [place] [address] 66851- 4388 Nov, Tremors of nervous system R25.1 and Cramping of feet R25.2 [facility] [address], [place] [address] 0832 Nov, [facility] [address], [place] [address] 3071 Nov, [facility] [address], [place] [address] 1962 Oct, Chronic obstructive pulmonary disease, unspecified J44.9 [facility] [address], [place] [address] 7607 Oct, [facility] [address], [place] [address] 2600 Oct, Tremor R25.1 [facility] [address], [place] [address] 7851 Oct, Bipolar I disorder with depression F31.9 ; Diabetes E11.9 ; PTSD (post-traumatic stress disorder) F43.10 and Panic disorder with agoraphobia F40.01 [facility] [id number] [address] 6239 Oct, Mood disorder F39 [facility] [id number] [place] [address] 37543- 0526 September, [facility] [id number] [place] [address] 77783- 2113 September, Diabetes E11.9 ; Bipolar I disorder with depression F31.9 ; PTSD (post-traumatic stress disorder) F43.10 and Panic disorder with agoraphobia F40.01 [facility] [id number] [place] [address] 70766- 4724 September, Mood disorder F39 ; Schizoaffective disorder, unspecified type F25.9 ; Arthritis M19.90 ; Tremor R25.1 ; Acute non-recurrent frontal sinusitis J01.10 and Blood in stool K92.1 [facility] [id number] [place] [address] 62972- 9945 September, [facility] [id number] [place] [address] 37712- 2698 September, Chronic obstructive pulmonary disease, unspecified J44.9 [facility] [id number] [place] [address] 10650- 0241 September, Diabetes E11.9 [facility] [id number] [place] [address] 07289- 9180 Aug, Other bipolar disorder F31.89 and Anxiety disorder, unspecified F41.9 [facility] [id number] [place] [address] 60151- 3165 Aug, [facility] [id number] [place] [address] 51231- 6877 Aug, Diabetes E11.9 [facility] [id number] [place] [address] 89711- 1848 Aug, [facility] [id number] [place] [address] 60424- 3035 14 Aug, 2015 Diabetes E11.9 ; Fatigue R53.83 and Dizziness R42 [facility] [id number] [place] [address] 53093- 2256 13 Aug, 2015 Other bipolar disorder F31.89 [facility] [id number] [place] [address] 18854- 5306 07 Aug, 2015 Generalized anxiety disorder F41.1 [facility] [id number] [place] [address] 95125- 0744 07 Aug, 2015 Other bipolar disorder F31.89 and Anxiety disorder, unspecified F41.9 [facility] [id number] [place] [address] 23283- 5135 04 Aug, 2015 [facility] [id number] [place] [address] 88549- 0266 Jul, [facility] [id number] [place] [address] 47305- 7982 24 Jul, 2015 [facility] [id number] [place] [address] 64281- 4616 Jul, Bronchitis J40 [facility] [id number] [place] [address] 99745- 4288 Jul, Anxiety disorder F41.9 [facility] [id number] [place] [address] 12223- 4142 Jul, Other bipolar disorder F31.89 and Anxiety disorder, unspecified F41.9 [facility] [id number] [place] [address] 42664- 8348 18 Jul, 2015 Other bipolar disorder F31.89 and Fibromyalgia M79.7 [facility] [id number] [place] [address] 30696- 8187 10 Jul, 2015 [facility] [id number] [place] [address] 14754- 1232 09 Jul, 2015 [facility] [id number] [place] [address] 92185- 4794 Jul, [facility] [id number] [place] [address] 92427- 4151 Jul, Other bipolar disorder F31.89 and Anxiety disorder, unspecified F41.9 [facility] [id number] [place] [address] 73998- 9318 Jun, GERD (gastroesophageal reflux disease) K21.9 [facility] [id number] [place] [address] 67052- 4811 Jun, [facility] [address] 0[address]96- 8024 May, [facility] [id number] [place] [address] 16600- 2285 May, Diabetes E11.9 ; Back pain M54.9 ; GERD (gastroesophageal reflux disease) K21.9 ; Hypertension I10 and Peripheral neuropathy G62.9 [facility] [id number] [place] [address] 68467- 2035 Mar, [facility] [id number] [place] [address] 19622- 8286 Mar, [facility] [id number] [place] [address] 48803- 8280 Mar, Acute sinusitis J01.90 and Otitis media, left H66.92 [facility] [id number] [place] [address] 36415- 8157 Feb, [facility] [id number] [place] [address] 80348- 4758 Feb, [facility] [id number] [place] [address] 64243- 5061 15 Feb, 2015 [facility] [id number] [place] [address] 48714- 0410 Feb, [facility] [address] [place] [address]- 3509 Jan, [facility] [id number] [place] [address] 34259- 0097 Jan, Diabetes 250.00 and Back pain 724.5 [facility] [id number] [place] [address] 86645- 1346 Jan, [facility] [address] 07100- 9397 Dec, Diabetes 250.00 ; Benign essential hypertension 401.1 and Allergic rhinitis 477.9 [facility] [id number] [place] [address] 22476- 3534 Dec, [facility] [id number] [place] [address] 75794- 4260 Dec, [facility] [id number] [place] [address] 34120- 3951 Dec, Psychosis 298.9 [facility] [id number] [place] [address] 97300- 6586 Dec, Medication side effect 995.20 and Generalized anxiety disorder 300.02 [facility] [id number] [place] [address] 74850- 7152 Dec, Acquired cognitive dysfunction 294.9 [facility] [id number] [place] [address] 14736- 5229 Dec, [facility] [id number] [place] [address] 23601- 1520 Dec, Unspecified myalgia and myositis 729.1 and Generalized anxiety disorder 300.02 [facility] [id number] [place] [address] 83998- 6039 Nov, [facility] [id number] [place] [address] 62062- 8936 Nov, [facility] [id number] [place] [address] 48379- 9582 Nov, [facility] [address], [place] [address]- 7804 Nov, Upper respiratory infection 465.9 and Chronic airway obstruction, not elsewhere classified 496 [facility] [id number], [place] [address]- 6312 Nov, Hyponatremia 276.1 [facility] [id number] [place] [address] 90975- 8760 Oct, [facility] [id number] [place] [address] 77782- 3825 Oct, [facility] [id number] [place] [address] 05822- 8535 Oct, [facility] [id number] [place] [address] 63031- 2333 Oct, [facility] [id number] [place] [address] 51544- 9241 Oct, Hyponatremia 276.1 [facility] [id number] [place] [address] 53792- 8397 Oct, [facility] [id number] [place] [address] 86790- 1623 Oct, [facility] [address], [place] [address]- 8187 Oct, Generalized anxiety disorder 300.02 [facility] [id number] [place] [address] 08932- 8634 Oct, Generalized anxiety disorder 300.02 and Diabetes 250.00 [facility] [id number] [place] [address] 52414- 2662 Aug, [facility] [id number] [address]- 1731 Aug, [facility] [address], [place] [address]- 2170 Jul, [facility] [place] [facility] [address] [id number] [place] [address]- 9806 Jul, [facility] [place] [facility] [address] [id number] [place] [address]- 1656 Jun, [facility] [place] [facility] [address] [id number] [place] [address]- 9316 Jun, [facility] [place] [facility] [address] [id number] [place] [address]- 9246 Jun, [facility] [place] [facility] [address] [id number] [place] [address]- 1670 Jun, [facility] [place] [facility] [address] [id number] [place] [address]- 1783 Jun, [facility] [place] [facility] [address] [id number] [place] [address]- 8564 May, [facility] [place] [facility] [address] [id number] [place] [address]- 6229 May, [facility] [place] [facility] [address] [id number] [place] [address]- 7306 Apr, [facility] [place] [facility] [address] [id number] [place] [address]- 6256 Apr, [facility] [place] [facility] [address] [id number] [place] [address]- 0427 Apr, [facility] [place] [facility] [address] [id number] [place] [address]- 1651 18 Apr, 2013 [facility] [place] [facility] [address] [id number] [place] [address] 2546 17 Apr, 2013 [facility] [place] [facility] [address] [id number] [place] 5386 Apr, [facility] [place] [facility] [address] [id number] [place] [address]- 4652 Apr, [facility] [place] [facility] [address] [id number] [place] [address]- 7467 Apr, [facility] [address] [id number] [place] [address]- 3114 Feb, [facility] [place] [facility] [address] [id number] [place] [address]- 5244 Feb, [facility] [address] [id number] [place] [address]- 1005 Jan, [facility] [place] [facility] [address] [id number] [place] [address]- 8345 Jan, [facility] [address] [id number] [place] [address]- 8972 Dec, [facility] [place] [facility] [address] [id number] [place] [address]- 8247 Dec, [facility] [address] [id number] [place] [address]- 9460 Dec, [facility] [place] [facility] [address] [id number] [place] [address]- 2886 Nov, [facility] [address] [id number] [place] [address]- 8816 Nov, [facility] [place] [facility] [address] [id number] [place] [address]- 1487 Nov, [facility] [place] [facility] [address] [id number] [place] [address]- 7173 Oct, [facility] [place] [facility] [address] [id number] [place] [address]- 2033 Oct, [facility] [place] [facility] [address] [id number] [place] [address]- 4793 Oct, [facility] [place] [facility] [address] [id number] [place] [address]- 9193 September, [facility] [place] [facility] [address] [id number] [place] [address]- 0753 September, [facility] [place] [facility] [address] [id number] [place] [address]- 5017 September, [facility] [place] [facility] [address] [id number] [place] [address]- 9109 Aug, [facility] [place] [facility] [address] [id number] [place] [address]- 9650 Aug, [facility] [place] [facility] [address] [id number] [place] [address]- 0381 Aug, [facility] [place] [facility] [address] [id number] [place] [address]- 1974 16 Aug, 2011 [facility] [place] [facility] [address] [id number] [place] [address]- 5552 Jul, [facility] [place] [facility] [address] [id number] [place] [address]- 6834 Jun, [facility] [place] [facility] [address] [id number] [place] [address]- 9608 14 Jun, 2011 [facility] [place] [facility] [address] [id number] [place] [address]- 4141 Jun, [facility] [place] [facility] [address] [id number] [place] [address]- 3600 07 Jun, 2011 [facility] [place] [facility] [address] [id number] [place] [address]- 4274 Jun, [facility] [place] [facility] [address] [id number] [place] [address]- 9126 May, [facility] [place] [facility] [address] [id number] [place] [address]- 3379 May, [facility] [place] [facility] [address] [id number] [place] [address]- 1584 May, [facility] [place] [facility] [address] [id number] [place] 8317 May, [facility] [place] [facility] [address] [id number], [place] [address]- 1478 20 Apr, 2011 [facility] [place] [facility] [address] [id number] [place] [address]- 9775 13 Apr, 2011 [facility] [place] [facility] [address] [id number] [place] [address]- 3602 05 Apr, 2011 [facility] [place] [facility] [address] [id number] [place] [address]- 5716 Mar, [facility] [place] [facility] [address] [id number] [place] [address]- 9723 Mar, [facility] [place] [facility] [address] [id number] [place] [address]- 7207 Mar, [facility] [place] [facility] [address] [id number] [place] 9912 13 Feb, 2011 [facility] [place] [facility] [address] [id number] [place] [address]- 8375 13 Feb, 2011 [facility] [place] [facility] [address] [id number] [place] [address]- 7241 13 Feb, 2011 [facility] [place] [facility] [address] [id number] [place] [address]- 9007 Nov, [facility] [place] [facility] [address] [id number] [place] [address]- 1298 September, [facility] [place] [facility] [address] [id number] [place] [address]- 7519 Aug, [facility] [place] [facility] [address] [id number] [place] [address]- 1490 14 Jul, 2010 [facility] [place] [facility] [address] [id number] [place] [address]- 7942 May, [facility] [place] [facility] [address] [id number] [place] [address]- 5858 31 Apr, 2010 [facility] [place] [facility] [address] [id number] [place] [address]- 3843 30 Apr, 2010 [facility] [place] [facility] [address] [facility] [id number] [place] [address] 7327 Apr, [facility] [address] [facility] [id number], [place] [address]- 0458 Apr, [facility] [address] [facility] [id number] [place] 9558 Apr, IMMUNIZATIONS No Known Immunizations SOCIAL HISTORY Never Assessed REASON FOR VISIT Requests return call PLAN OF CARE VITAL SIGNS MEDICATIONS Medication Instructions Dosage Frequency Start Date End Date Duration Status Ondansetron 4 MG Orally every 8 hrs PRN 1 tablet on the tongue and allow to dissolve Apr, Active RESULTS No Results PROCEDURES No Known [...]
--- OUTSIDE RECORDS SUMMARY | 2017-11-18 07:32 | XMS REPORT ---
Author Author WHIT GANDHI [facility] Address [address] [place] [address] Care Team Providers Care Saddle Stitch Operator Name Role Phone WHIT GANDHI Unavailable PROBLEMS Type Condition ICD9-CM Code [id number] Code Onset Dates Condition Status SNOMED Code Problem Back pain M54.9 Active 585293895 Problem GERD (gastroesophageal reflux disease) K21.9 Active 693856186 Problem Diabetes E11.9 Active 21955031 Problem Hypertension I10 Active 90834046 Problem Acute non-recurrent maxillary sinusitis J01.00 Active 85573072 Problem Anxiety disorder, unspecified F41.9 Active 117500715 Problem Bipolar 1 disorder, depressed, partial remission F31.75 Active 88784010 Problem Other bipolar disorder F31.89 Active 06021713 Problem Mild persistent asthma without complication J45.30 Active 878938727 Problem Panlobular emphysema J43.1 Active 5692036 Problem Moderate persistent asthma without complication J45.40 Active 991465692 Problem Irritable bowel syndrome with constipation K58.1 Active 035328679 Problem Arthritis M19.90 Active 7643017 Problem Chronic obstructive pulmonary disease, unspecified J44.9 Active 74932502 Problem Panic disorder with agoraphobia F40.01 Active 33341380 Problem Fibromyalgia M79.7 Active 06392061 Problem Migraine without aura and without status migrainosus, not intractable G43.009 Active 061044231 Problem Akathisia G25.71 Active 554308763 Problem Fibrocystic disease of right breast N60.11 Active 81554180 Problem Fibrocystic disease of left breast N60.12 Active 68891002 Problem Lumbago with sciatica, right side M54.41 Active 209131351 Problem Bipolar 1 disorder, depressed, moderate F31.32 Active 28043536 Problem Other chronic pain G89.29 Active 38526108 Problem Lumbago with sciatica, left side M54.42 Active 870052811 Problem Attention deficit hyperactivity disorder (ADHD), predominantly inattentive type F90.0 Active 22414023 Problem Bipolar I disorder with depression F31.9 Active 34625354 Problem Chronic post-traumatic stress disorder (PTSD) F43.12 Active 723526717 Problem Bipolar affective disorder, remission status unspecified F31.9 Active 78310656 ALLERGIES No Information ENCOUNTERS Encounter Location Date Diagnosis [facility] [id number] [place] [address] 04459- 6174 18 Aug, 2017 [facility] [address] 96810- 8666 Aug, [facility] [id number] [place] [address] 13663- 3558 Aug, [place] [address] 87288- 4127 Jul, [place] [address] 81712- 1701 Jul, Mild persistent asthma without complication J45.30 [place] [id number] [place] [address] 84006- 9034 19 Jul, 2017 Mild persistent asthma without complication J45.30 [place] [id number] [place] [address] 44754- 4264 15 Jul, 2017 Bipolar affective disorder, remission status unspecified F31.9 ; Diabetes E11.9 and Irritable bowel syndrome with constipation K58.1 [place] [id number] [place] [address] 62924- 2508 Jul, [facility] [id number] [place] [address] 37220- 4831 Jul, [place] [id number] [place] [address] 67409- 2654 Jul, Frequent headaches R51 [facility] [id number] [place] [address] 86145- 7234 07 Jul, 2017 [place] [address] 14243- 8453 Jul, [place] [id number] [place] [address] 45337- 9506 Jul, [place] [address] 37132- 5389 Jul, Frequent headaches R51 ; Fibrocystic disease of left breast N60.12 ; Fibrocystic disease of right breast N60.11 and Diabetes E11.9 [place] [id number] [place] [address] 15209- 7694 Jul, [place] [id number] [place] [address] 27780- 7718 Jul, [place] [address] 30907- 0995 Jun, Exudative tonsillitis J03.90 [place] [address] 66518- 0271 Jun, [place] [id number] [place] [address] 53378- 2298 Jun, [place] [id number] [place] [address] 08256- 3872 15 Jun, 2017 Mild persistent asthma without complication J45.30 ; Chronic obstructive pulmonary disease, unspecified COPD type J44.9 and Exudative tonsillitis J03.90 [place] [id number] [place] [address] 64042- 0555 13 Jun, 2017 Encounter for immunization Z23 [place] [id number] [place] [address] 35206- 3906 Jun, [place] [address] 21151- 0870 Jun, [place] [id number] [place] [address] 55116- 4168 Jun, [facility] [id number] [place] [address] 08320 -8635 06 Jun, 2017 Tonsillitis J03.90 [place] [address] 10758- 5892 05 Jun, 2017 [place] [address] [place] [address] 941767- 4713 Jun, Acute non-recurrent maxillary sinusitis J01.00 [place] [address] 96341- 8640 Jun, [place] [address] 44372- 6242 May, [place] [address] 66312- 8040 May, [place] [address] 39947- 2507 May, GERD (gastroesophageal reflux disease) K21.9 [place] [address] 42373- 7727 May, Migraine without aura and without status migrainosus, not intractable G43.009 [place] [address] 38035- 0935 May, [place] [address] 79352- 0539 May, [place] [address] 42377- 7262 May, Panlobular emphysema J43.1 and Acute non-recurrent maxillary sinusitis J01.00 [place] [address] 77890- 1080 May, Bipolar 1 disorder, depressed, moderate F31.32 ; Panic disorder with agoraphobia F40.01 and Akathisia G25.71 [place] [address] 26740- 8441 Apr, [place] [id number] [place] [address] 51145- 2869 14 Apr, 2017 [facility] [address] 71321- 1572 Apr, Acute non-recurrent maxillary sinusitis J01.00 [facility] [id number] [place] [address] 00017- 9709 07 Apr, 2017 Panlobular emphysema J43.1 [facility] [address] 97847- 2292 04 Apr, 2017 [facility] [address] 97319 -7192 04 Apr, 2017 Exudative tonsillitis J03.90 and Sore throat J02.9 [facility] [address] 40931- 6578 17 Mar, 2017 [facility] [address] 70119- 0570 15 Mar, 2017 Acute non-recurrent maxillary sinusitis J01.00 [place] [address] 30649- 8475 Mar, [facility] [id number] [place] [address] 47813- 7701 Mar, Panlobular emphysema J43.1 and Diabetes E11.9 [facility] [id number] [place] [address] 27050- 7400 Mar, [facility] [id number] [place] [address] 27578 -5703 Feb, Wheezing R06.2 and Acute recurrent pansinusitis J01.41 [facility] [id number] [place] [address] 88147- 0246 Feb, [facility] [id number] [place] [address] 39221- 9940 Feb, Acute non-recurrent maxillary sinusitis J01.00 [facility] [id number] [place] [address] 099083- 7499 16 Feb, 2017 Chronic obstructive pulmonary disease, unspecified J44.9 [facility] [address] 254 02 Feb, 2017 Hypoxemia R09.02 and Chronic obstructive pulmonary disease, unspecified J44.9 [facility] [address] [place] [address]- 6379 28 Jan, 2017 Bipolar 1 disorder, depressed, moderate F31.32 ; Panic disorder with agoraphobia F40.01 ; Chronic post-traumatic stress disorder (PTSD ) F43.12 ; Diabetes E11.9 and Moderate persistent asthma without complication J45.40 [facility] [address] 47047440- 2540 22 Jan, 2017 [facility] [address] 941768- 0975 19 Jan, 2017 Acute non-recurrent maxillary sinusitis J01.00 [facility] [address] 64832- 4807 18 Jan, 2017 [facility] [address] 32402 2545 18 Jan, 2017 [facility] [address] 61664 2540 Jan, Moderate persistent asthma without complication J45.40 and Hypoxemia R09.02 [facility] [address] 42057 2546 11 Jan, 2017 Moderate persistent asthma without complication J45.40 and Hypoxemia R09.02 [facility] [address] 85063 2546 Jan, [facility] [address] 58386- 254 Dec, Acute non-recurrent maxillary sinusitis J01.00 [facility] [address] [place] [address]- 5428 Dec, Chronic obstructive pulmonary disease, unspecified J44.9 [facility] [id number] [place] [address] 48270- 3904 Dec, [facility] [id number] [place] [address] 55977- 6836 Dec, Mild persistent asthma without complication J45.30 and Other chronic pain G89.29 [facility] [id number] [place] [address] 86002- 3345 Nov, [facility] [id number] [place] [address] 18347- 7400 Nov, Acute non-recurrent maxillary sinusitis J01.00 [facility] [id number] [place] [address] 36105- 6606 Nov, [facility] [id number] [place] [address] 26361- 5627 Nov, [facility] [id number] [place] [address] 86811- 9356 Oct, [facility] [id number] [place] [address] 03810- 8812 Oct, Bipolar 1 disorder, depressed, partial remission F31.75 ; Panic disorder with agoraphobia F40.01 and Chronic post-traumatic stress disorder (PTSD) F43.12 [facility] [id number] [place] [address] 96954- 0789 Oct, Acute non-recurrent maxillary sinusitis J01.00 [facility] [id number] [place] [address] 46692- 4270 Oct, [facility] [id number] [place] [address] 56025- 4143 Oct, Diabetes E11.9 [facility] [id number] [place] [address] 58531- 5752 September, Diabetes E11.9 [facility] [address] [place] [address] 87426- 2400 September, Diabetes E11.9 and Sinus tachycardia R00.0 [facility] [id number] [place] [address] 48900- 5064 September, [facility] [id number] [place] [address] 39439- 4867 September, [facility] [id number] [place] [address] 39703- 0825 Aug, Diabetes E11.9 and Lumbago with sciatica, right side M54.41 [facility] [id number] [place] [address] 92330- 3004 Aug, [facility] [id number] [place] [address] 73491- 1701 Jul, Bipolar 1 disorder, depressed, moderate F31.32 ; Panic disorder with agoraphobia F40.01 and Chronic post-traumatic stress disorder ( PTSD) F43.12 [facility] [id number] [place] [address] 65113- 7343 Jul, Sore throat J02.9 [facility] [id number] [place] [address] 39468- 1192 Jul, [facility] [id number] [place] [address] 98183- 2734 Jul, [facility] [id number] [place] [address] 14362- 9635 Jul, [facility] [id number] [place] [address] 48882- 3722 Jul, [facility] [id number] [place] [address] 05432- 9533 Jul, Sore throat J02.9 and Pharyngitis, unspecified etiology J02.9 [facility] [id number] [place] [address] 91670- 4352 Jun, [facility] [address] [address]- 9364 Jun, Diabetes E11.9 [facility] [address] [address]- 1891 Jun, [facility] [address] [address]- 0536 Jun, [facility] [address] [place] [address]- 6613 Jun, [facility] [address] [place] [address] 62441- 4988 Jun, [facility] [address] [address]- 3050 Jun, [facility] [address] [address]- 0942 Jun, [facility] [address] [address]- 3766 Jun, [facility] [address] [place] [address]- 0586 Jun, [facility] [address] [address]- 7730 May, Diabetes E11.9 ; Other chronic pain G89.29 ; Acute recurrent maxillary sinusitis J01.01 ; Bipolar I disorder with depression F31.9 and Anxiety disorder, unspecified F41.9 [facility] [address] [address]- 0070 May, [facility] [address] [place] [address]- 6362 May, Diabetes E11.9 ; Bipolar I disorder with depression F31.9 ; Anxiety disorder, unspecified F41.9 ; Other chronic pain G89.29 and Acute recurrent maxillary sinusitis J01.01 [facility] [id number] [place] [address] 43180- 3327 May, [facility] [id number] [place] [address] 08804- 6272 May, Attention deficit hyperactivity disorder (ADHD), predominantly inattentive type F90.0 [place] [id number] [place] [address] 76704- 8370 May, [place] [id number] [place] [address] 35931- 4185 Apr, Attention deficit hyperactivity disorder (ADHD), predominantly inattentive type F90.0 and Non-seasonal allergic rhinitis due to other allergic trigger J30.89 [place] [id number] [place] [address] 36011- 8978 Apr, Bipolar 1 disorder, depressed, moderate F31.32 ; Panic disorder with agoraphobia F40.01 and Chronic post-traumatic stress disorder ( PTSD) F43.12 [place] [id number] [place] [address] 11640- 8495 Apr, Dental examination Z01.20 [place] [id number] [place] [address] 32056- 8174 Mar, [place] [id number] [place] [address] 71148- 7035 Mar, [place] [address] [place] [address] 82345- 2985 Mar, Bipolar I disorder with depression F31.9 and Anxiety disorder, unspecified F41.9 [place] [address] [place] [address] 22558- 0472 08 Mar, 2016 Panic disorder with agoraphobia F40.01 ; Bipolar 1 disorder , depressed, moderate F31.32 and Chronic post-traumatic stress disorder (PTSD) F43.12 [place] [address] [place] [address] 83551- 2976 Mar, [place] [address] 06205- 0390 Mar, Dental caries K02.9 [place] [address] 02203- 0387 Feb, Lumbago with sciatica, left side M54.42 ; Lumbago with sciatica, right side M54.41 and Other chronic pain G89.29 [place] [address] 18493- 9393 Feb, [place] [address] 06837- 3652 14 Feb, 2016 [place] [address] 01335- 1935 Feb, Bipolar I disorder with depression F31.9 ; PTSD (post- traumatic stress disorder) F43.10 and Mood disorder F39 [place] [address] 88623- 6914 Feb, [place] [address] 89034- 3838 Feb, Dental examination Z01.20 [place] [address] 70862- 5409 07 Feb, 2016 [facility] [address] 48327 -0101 Feb, Acute bronchitis, unspecified organism J20.9 [place] [address] 31046- 5934 26 Jan, 2016 Mood disorder F39 ; Migraine without aura and without status migrainosus, not intractable G43.009 ; Irritable bowel syndrome, unspecified type K58.9 ; Diabetes E11.9 and Encounter for immunization Z23 [place] [address] 55325- 3817 15 Jan, 2016 [place] [address] 16530- 0959 Jan, [facility] [address] [address]- 6452 Jan, [facility] [id number] [place] [address] 28561- 4640 Jan, [facility] [id number] [place] [address] 05175- 9704 Jan, [facility] [id number] [place] [address] 07312- 5910 Dec, Bipolar I disorder with depression F31.9 ; PTSD (post- traumatic stress disorder) F43.10 and Panic disorder with agoraphobia F40.01 [facility] [id number] [place] [address] 56360- 7702 Dec, Chronic obstructive pulmonary disease, unspecified COPD type J44.9 ; Tremor R25.1 and Anxiety F41.9 [facility] [id number] [place] [address] 90202- 9602 Dec, [facility] [id number] [place] [address] 43087- 7385 Nov, Tremors of nervous system R25.1 and Cramping of feet R25.2 [facility] [address] [place] [address] 10354- 9878 Nov, [facility] [id number] [place] [address] 74177- 4131 Nov, [facility] [id number] [place] [address] 15366- 4202 Oct, Chronic obstructive pulmonary disease, unspecified J44.9 [facility] [id number] [place] [address] 34172- 6775 Oct, [facility] [address] [place] [address] 30888- 9693 Oct, Tremor R25.1 [facility] [id number] [place] [address] 74340- 0212 Oct, Bipolar I disorder with depression F31.9 ; Diabetes E11.9 ; PTSD (post-traumatic stress disorder) F43.10 and Panic disorder with agoraphobia F40.01 [facility] [address] [address]- 9819 Oct, Mood disorder F39 [place] [id number] [place] [address] 47471- 3937 September, [place] [id number] [place] [address] 85145- 5681 September, Diabetes E11.9 ; Bipolar I disorder with depression F31.9 ; PTSD (post-traumatic stress disorder) F43.10 and Panic disorder with agoraphobia F40.01 [place] [id number] [place] [address] 13904- 4236 September, Mood disorder F39 ; Schizoaffective disorder, unspecified type F25.9 ; Arthritis M19.90 ; Tremor R25.1 ; Acute non-recurrent frontal sinusitis J01.10 and Blood in stool K92.1 [place] [id number] [place] [address] 24813- 6365 September, [place] [id number] [place] [address] 39987- 3853 September, Chronic obstructive pulmonary disease, unspecified J44.9 [place] [id number] [place] [address] 80460- 2303 September, Diabetes E11.9 [place] [address] [place] [address] 67991- 9017 Aug, Other bipolar disorder F31.89 and Anxiety disorder, unspecified F41.9 [facility] [id number] [place] [address] 42328- 6223 Aug, [place] [id number] [place] [address] 17808- 8951 Aug, Diabetes E11.9 [facility] [id number] [place] [address] 21209- 4806 18 Aug, 2015 [facility] [id number] [place] [address] 60687- 5896 14 Aug, 2015 Diabetes E11.9 ; Fatigue R53.83 and Dizziness R42 [facility] [id number] [place] [address] 77952- 5106 13 Aug, 2015 Other bipolar disorder F31.89 [facility] [id number] [place] [address] 77566- 2056 07 Aug, 2015 Generalized anxiety disorder F41.1 [place] [id number] [place] [address] 86181- 9596 07 Aug, 2015 Other bipolar disorder F31.89 and Anxiety disorder, unspecified F41.9 [place] [id number] [place] [address] 40724- 0472 Aug, [facility] [id number] [place] [address] 27685- 2734 29 Jul, 2015 [facility] [id number] [place] [address] 09504- 4451 24 Jul, 2015 [facility] [id number] [place] [address] 79358- 3390 23 Jul, 2015 Bronchitis J40 [facility] [id number] [place] [address] 53860- 4128 Jul, Anxiety disorder F41.9 [facility] [id number] [place] [address] 99478- 7547 Jul, Other bipolar disorder F31.89 and Anxiety disorder, unspecified F41.9 [facility] [id number] [place] [address] [phone] 18 Jul, 2015 Other bipolar disorder F31.89 and Fibromyalgia M79.7 [facility] [id number] [place] [address] [phone] Jul, [facility] [id number] [place] [address] [phone] Jul, [facility] [address] [phone] Jul, [facility] [id number] [place] [address] [phone] Jul, Other bipolar disorder F31.89 and Anxiety disorder, unspecified F41.9 [facility] [address] [phone] Jun, GERD (gastroesophageal reflux disease) K21.9 [facility] [address] [id number] 3366 Jun, [facility] [address] [address]- [address] May, [facility] [address] [address]- 6255 May, Diabetes E11.9 ; Back pain M54.9 ; GERD (gastroesophageal reflux disease) K21.9 ; Hypertension I10 and Peripheral neuropathy G62.9 [facility] [id number] [place] [address] 77326- 5846 Mar, [facility] [id number] [place] [address] 17618- 7457 Mar, [facility] [id number] [place] [address] 55095- 2960 Mar, Acute sinusitis J01.90 and Otitis media, left H66.92 [facility] [address] [address]39- 3235 Feb, [facility] [address] 26224- 3395 Feb, [facility] [id number] [place] [address] 39129- 5321 Feb, [facility] [address] [address] 5914 Feb, [facility] [id number] [place] [address] 60034- 8390 Jan, [facility] [id number] [place] [address] 36406- 0158 Jan, Diabetes 250.00 and Back pain 724.5 [facility] [id number] [place] [address] 64596- 0325 Jan, [facility] [id number] [place] [address] 82082- 9865 Dec, Diabetes 250.00 ; Benign essential hypertension 401.1 and Allergic rhinitis 477.9 [facility] [id number] [place] [address] 19645- 5894 Dec, [facility] [id number] [place] [address] 13980- 0196 Dec, [facility] [id number] [place] [address] 04744- 1238 Dec, Psychosis 298.9 [facility] [id number] [place] [address] 73191- 5983 Dec, Medication side effect 995.20 and Generalized anxiety disorder 300.02 [facility] [id number] [place] [address] 55652- 1079 Dec, Acquired cognitive dysfunction 294.9 [facility] [id number] [place] [address] 71853- 4600 Dec, [facility] [id number] [place] [address] 77408- 8362 Dec, Unspecified myalgia and myositis 729.1 and Generalized anxiety disorder 300.02 [facility] [id number] [place] [address] 61002- 8648 Nov, [facility] [id number] [place] [address] 77001- 9585 Nov, [facility] [address] [address] 2516 Nov, [facility] [id number] [place] [address] 17859- 9408 Nov, Upper respiratory infection 465.9 and Chronic airway obstruction, not elsewhere classified 496 [facility] [id number] [place] [address] 32677- 7455 Nov, Hyponatremia 276.1 [facility] [id number] [place] [address] 10244- 5377 Oct, [facility] [id number] [place] [address] 55084- 0209 Oct, [facility] [id number] [place] [address] 59428- 4412 Oct, [facility] [id number] [place] [address] 63137- 7582 Oct, [facility] [id number] [place] [address] 43929- 4526 Oct, Hyponatremia 276.1 [facility] [id number] [place] [address] 93854- 1653 Oct, [facility] [address] [address]- 2261 Oct, [facility] [id number] [place] [address] 57550- 0366 Oct, Generalized anxiety disorder 300.02 [facility] [id number] [place] [address] 76211- 8332 Oct, Generalized anxiety disorder 300.02 and Diabetes 250.00 [facility] [address] [address]- 7371 14 Aug, 2014 [facility] [id number] [place] [address] 31046- 6163 Aug, [facility] [place] [facility] [address] [id number] [place] [address]- 5006 Jul, [facility] [place] [facility] [address] [id number] [place] [address]- 4239 Jul, [facility] [place] [facility] [address] [id number] [place] [address]- 4819 Jun, [facility] [place] [facility] [address] [id number] [place] [address]- 8112 Jun, [facility] [place] [facility] [address] [id number] [place] [address]- 6906 Jun, [facility] [place] [facility] [address] [id number] [place] [address]- 0635 Jun, [facility] [place] [facility] [address] [id number] [place] [address]- 4670 Jun, [facility] [place] [facility] [address] [id number] [place] [address]- 3981 May, [facility] [place] [facility] [address] [id number] [place] [address]- 8831 May, [facility] [place] [facility] [address] [id number] [place] [address]- 0504 Apr, [facility] [place] [facility] [address] [id number] [place] [address]- 3503 Apr, [facility] [place] [facility] [address] [id number] [place] [address]- 7541 18 Apr, 2013 [facility] [place] [facility] [address] [id number] [place] [address]- 7922 18 Apr, 2013 [facility] [place] [facility] [address] [id number] [place] [address]- 2746 Apr, [facility] [place] [facility] [address] [id number] [place] [address]- 4262 17 Apr, 2013 [facility] [place] [facility] [address] [id number] [place] [address]- 2546 Apr, [facility] [address] [id number] [place] [address]- 2098 Apr, [facility] [place] [facility] [address] [id number] [place] [address]- 2546 Feb, [facility] [address] [id number] [place] [address]- 2548 Feb, [facility] [address] [id number] [place] [address]- 2544 Jan, [facility] [address] [id number] [place] [address]- 7045 Jan, [facility] [address] [id number] [place] [address]- 6860 Dec, [facility] [address] [id number] [place] [address]- 0600 Dec, [facility] [address] [id number] [place] [address]- 6453 Dec, [facility] [address] [id number] [place] [address]- 0074 Nov, [facility] [address] [id number] [place] [address]- 8836 Nov, [facility] [address] [id number] [place] [address]- 2540 Nov, [facility] [address] [id number] [place] [address]- 3876 Oct, [facility] [place] [facility] [address] [id number] [place] [address]- 4311 Oct, [facility] [place] [facility] [address] [id number] [place] [address]- 2546 Oct, [facility] [address] [id number] [place] [address]- 8247 September, [facility] [address] [id number] [place] [address]- 2297 September, [facility] [place] [facility] [address] [id number] [place] [address]- 3015 September, [facility] [place] [facility] [address] [id number] [place] [address]- 5246 Aug, [facility] [place] [facility] [address] [id number] [place] [address]- 5676 Aug, [facility] [address] [id number] [place] [address]- 9531 Aug, [facility] [place] [facility] [address] [id number] [place] [address]- 1356 16 Aug, 2011 [facility] [place] [facility] [address] [id number] [place] [address]- 2881 Jul, [facility] [place] [facility] [address] [id number] [place] [address]- 5810 Jun, [facility] [place] [facility] [address] [id number] [place] [address]- 2267 14 Jun, 2011 [facility] [place] [facility] [address] [id number] [place] [address]- 9371 Jun, [facility] [place] [facility] [address] [id number] [place] [address]- 1777 Jun, [facility] [place] [facility] [address] [id number] [place] [address]- 6785 Jun, [facility] [place] [facility] [address] [id number] [place] [address]- 5461 May, [facility] [place] [facility] [address] [id number] [place] [address]- 1409 May, [facility] [place] [facility] [address] [id number] [place] [address]- 8464 May, [facility] [place] [facility] [address] [id number] [place] [address]- 6108 04 May, 2011 [facility] [address] [id number] [place] [address]- 0934 Apr, [facility] [place] [facility] [address] [id number] [place] 1840 13 Apr, 2011 [facility] [place] [facility] [address] [id number] [place] [address]- 4502 05 Apr, 2011 [facility] [place] [facility] [address] [id number] [place] [address]- 5888 Mar, [facility] [place] [facility] [address] [id number] [place] [address]- 8527 Mar, [facility] [place] [facility] [address] [id number] [place] [address]- 2847 Mar, [facility] [place] [facility] [address] [id number] [place] [address]- 9883 Feb, [facility] [place] [facility] [address] [id number] [place] [address]- 5875 Feb, [facility] [place] [facility] [address] [id number] [place] [address]- 8084 Feb, [facility] [place] [facility] [address] [id number] [place] [address]- 4341 Nov, [facility] [place] [facility] [address] [id number] [place] [address]- 9039 September, [facility] [place] [facility] [address] [id number] [place] [address]- 6960 Aug, [facility] [place] [facility] [address] [id number] [place] [address]- 2858 14 Jul, 2010 [facility] [place] [facility] [address] [id number] [place] [address] May, [facility] [place] [facility] [address] [id number] [place] [address]- 0527 Apr, [facility] [address] [facility] [id number] [place] [address]- 3526 Apr, [facility] [address] [facility] [id number] [address]- 1716 Apr, [facility] [address] [id number] [address]- 5458 Apr, [facility] [address] [facility] [id number] [address]- 2872 Apr, IMMUNIZATIONS No Known Immunizations SOCIAL HISTORY [...]
--- OUTSIDE RECORDS SUMMARY | 2017-11-18 07:33 | XMS REPORT ---
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 Name Role Phone WHIT GANDHI Unavailable PROBLEMS Type Condition ICD9-CM Code HDV75-GM Code Onset Dates Condition Status SNOMED Code Problem Back pain M54.9 Active 127840953 Problem Diabetes E11.9 Active 90045860 Problem GERD (gastroesophageal reflux disease) K21.9 Active 051950640 Problem Hypertension I10 Active 91381823 Problem Anxiety disorder, unspecified F41.9 Active 017993223 Problem Other bipolar disorder F31.89 Active 32151351 Problem Fibromyalgia M79.7 Active 89413215 Problem Panic disorder with agoraphobia F40.01 Active 21400668 Problem Panlobular emphysema J43.1 Active 4831403 Problem Chronic obstructive pulmonary disease, unspecified J44.9 Active 58216854 Problem Akathisia G25.71 Active 199944144 Problem Lumbago with sciatica, left side M54.42 Active 743652496 Problem Migraine without aura and without status migrainosus, not intractable G43.009 Active 321751996 Problem Fibrocystic disease of right breast N60.11 Active 73904473 Problem Fibrocystic disease of left breast N60.12 Active 55220385 Problem Slow transit constipation K59.01 Active 28658658 Problem Essential tremor G25.0 Active 367829476 Problem Bipolar 1 disorder, depressed, moderate F31.32 Active 12022357 Problem Other chronic pain G89.29 Active 27542172 Problem Lumbago with sciatica, right side M54.41 Active 079333319 Problem Irritable bowel syndrome with constipation K58.1 Active 325643476 Problem Arthritis M19.90 Active 2322155 Problem Schizoaffective disorder, bipolar type F25.0 Active 96006638 Problem Irritable bowel syndrome with both constipation and diarrhea K58.2 Active 32729192 Problem Attention deficit hyperactivity disorder (ADHD), predominantly inattentive type F90.0 Active 81240655 Problem Bipolar I disorder with depression F31.9 Active 36854790 Problem Chronic post-traumatic stress disorder (PTSD) F43.12 Active 058022730 Problem Bipolar affective disorder, remission status unspecified F31.9 Active 88352083 Problem Mild persistent asthma without complication J45.30 Active 151559568 Problem Moderate persistent asthma without complication J45.40 Active 702587951 Problem Acute non-recurrent maxillary sinusitis J01.00 Active 88897560 Problem Bipolar 1 disorder, depressed, partial remission F31.75 Active 03853920 ALLERGIES No Information ENCOUNTERS Encounter Location Date Diagnosis [facility] [id number] [place] [address] 90975- 7615 Nov, [facility] [address] 57238- 1558 Nov, [facility] [address] 13892- 8512 Nov, [facility] [address] 05409- 5943 Oct, [facility] [id number] [place] [address] 45670- 1478 Oct, [facility] [id number] [place] [address] 46558- 3843 Oct, Type 2 diabetes mellitus with diabetic neuropathy, unspecified whether correction insulin use E11.40 ; Diabetes E11.9 ; Slow transit constipation K59.01 ; Edema of both legs R60.0 and Dysfunction of right eustachian tube H69.81 [facility] [id number] [place] [address] 65254- 8238 Oct, Frequent headaches R51 [facility] [address] 22537- 2391 Oct, [facility] [id number] [place] [address] 91276- 0393 Oct, [facility] [address] 81665- 8807 Oct, [facility] [address], [place] [address] 6923 Oct, [facility] [id number] [place] [address] 44526- 3279 Oct, [facility] [address] [place] [address]- 7457 Oct, [facility] [id number] [place] [address] 53774- 9407 Oct, [facility] [id number] [place] [address] 88229- 9929 Oct, [facility] [id number] [place] [address] 06473- 5438 September, Frequent headaches R51 [facility] [id number] [place] [address] 94585- 5193 September, Bilateral otitis media with effusion H65.93 ; Dizziness R42 and Essential tremor G25.0 [facility] [id number] [place] [address] 97957- 3221 September, Chronic obstructive pulmonary disease, unspecified COPD type J44.9 [facility] [id number] [address]- 2673 September, Chronic obstructive pulmonary disease, unspecified COPD type J44.9 [facility] [address] [address]- 3907 September, Migraine without aura and without status migrainosus, not intractable G43.009 [facility] [address], [place] [address]- 3483 September, [facility] [id number] [place] [address] 42313- 9883 September, [facility] [address], [place] [address]- 5393 September, [facility] [id number] [place] [address] 10982- 1312 September, Frequent headaches R51 [facility] [id number] [place] [address] 56528- 3232 Aug, [facility] [id number] [place] [address] 23328- 9866 Aug, Breast mass, right N63.10 [facility] [address] 53226- 4539 Aug, Breast lump N63.0 [facility] [address] 91103- 0531 Aug, [facility] [address] 69539- 5881 Aug, Bipolar affective disorder, remission status unspecified F31.9 and Diabetes E11.9 [facility] [id number] [place] [address] 63057- 5310 Aug, Diabetes E11.9 ; Schizoaffective disorder, bipolar type F25.0 ; Pharyngitis due to other organism J02.8 ; Panlobular emphysema J43.1 and Irritable bowel syndrome with both constipation and diarrhea K58.2 [facility] [id number] [place] [address] 11050- 0514 Aug, Abnormal mammogram R92.8 [facility] [id number] [place] [address] 88398- 3959 Aug, [facility] [id number] [place] [address] 02598- 9105 Aug, Bipolar 1 disorder, depressed, moderate F31.32 ; Panic disorder with agoraphobia F40.01 and Chronic post-traumatic stress disorder ( PTSD) F43.12 [facility] [id number] [place] [address] 94298- 4347 Aug, [facility] [id number] [place] [address] 14965- 7200 Aug, [facility] [id number] [place] [address] 92565- 2803 Aug, [facility] [id number] [place] [address] 94523199- 5486 Jul, [facility] [id number] [place] [address] 48853- 1291 20 Jul, 2017 Mild persistent asthma without complication J45.30 [facility] [id number] [place] [address] 98999- 4169 19 Jul, 2017 Mild persistent asthma without complication J45.30 [facility] [id number] [place] [address] 226286- 7632 15 Jul, 2017 Bipolar affective disorder, remission status unspecified F31.9 ; Diabetes E11.9 and Irritable bowel syndrome with constipation K58.1 [facility] [id number] [place] [address] 88205- 7713 Jul, [facility] [id number] [place] [address] 75906- 1930 Jul, [facility] [id number] [place] [address] 20168- 3312 Jul, Frequent headaches R51 [facility] [id number] [place] [address] 86886- 9167 Jul, [facility] [id number] [place] [address] 05231- 1113 Jul, [facility] [address] [place] [address] 23937- 2729 Jul, [facility] [id number] [place] [address] [id number]- 4187 Jul, Frequent headaches R51 ; Fibrocystic disease of left breast N60.12 ; Fibrocystic disease of right breast N60.11 and Diabetes E11.9 [facility] [id number] [place] [address] 17465- 8708 Jul, [facility] [id number] [place] [address] 27111- 6002 Jul, [facility] [id number] [place] [address] 95066- 9290 Jun, Exudative tonsillitis J03.90 [facility] [id number] [place] [address] 06888- 1747 Jun, [facility] [id number] [place] [address] 31798- 5130 Jun, [facility] [id number] [place] [address] 27588- 6541 15 Jun, 2017 Mild persistent asthma without complication J45.30 ; Chronic obstructive pulmonary disease, unspecified COPD type J44.9 and Exudative tonsillitis J03.90 [facility] [id number] [place] [address] 22750- 3091 13 Jun, 2017 Encounter for immunization Z23 [facility] [id number] [place] [address] 02749- 3237 Jun, [facility] [id number] [place] [address] 64922- 4760 Jun, [facility] [id number] [place] [address] 00178- 8612 Jun, [facility] [id number] [place] [address] 83459 -8397 Jun, Tonsillitis J03.90 [facility] [id number] [place] [address] 65151- 5235 Jun, [facility] [id number] [place] [address] 37059- 1506 Jun, Acute non-recurrent maxillary sinusitis J01.00 [facility] [id number] [place] [address] 39763- 8676 Jun, [facility] [id number] [place] [address] 21397- 8051 May, [facility] [address] 79994- 1031 May, [facility] [id number] [place] [address] 65161- 8887 May, GERD (gastroesophageal reflux disease) K21.9 [facility] [address] 61057- 4218 May, Migraine without aura and without status migrainosus, not intractable G43.009 [facility] [address] 35737- 9001 May, [facility] [address] 55467- 9914 May, [facility] [address] 21134- 7150 May, Panlobular emphysema J43.1 and Acute non-recurrent maxillary sinusitis J01.00 [facility] [id number] [place] [address] 95292- 1266 May, Bipolar 1 disorder, depressed, moderate F31.32 ; Panic disorder with agoraphobia F40.01 and Akathisia G25.71 [facility] [id number] [place] [address] 75116- 4589 Apr, [facility] [id number] [place] [address] 21459- 0159 Apr, [facility] [id number] [place] [address] 69049- 9453 Apr, Acute non-recurrent maxillary sinusitis J01.00 [facility] [id number] [place] [address] 89003- 6806 Apr, Panlobular emphysema J43.1 [facility] [address] [place] [address]- 2322 Apr, [facility] [id number] [place] [address] 69986 -9549 Apr, Exudative tonsillitis J03.90 and Sore throat J02.9 [facility] [id number] [place] [address] 76840- 3685 17 Mar, 2017 [facility] [address] 36774- 1173 Mar, Acute non-recurrent maxillary sinusitis J01.00 [facility] [address] 14406- 0153 Mar, [facility] [address] 66705- 9315 Mar, Panlobular emphysema J43.1 and Diabetes E11.9 [facility] [address] 91592- 5222 Mar, [facility] [id number] [place] [address] 89306 -9601 Feb, Wheezing R06.2 and Acute recurrent pansinusitis J01.41 [facility] [id number] [place] [address] 31107- 7504 Feb, [facility] [id number] [place] [address] 95396- 2067 Feb, Acute non-recurrent maxillary sinusitis J01.00 [facility] [id number] [place] [address] 17276- 1249 Feb, Chronic obstructive pulmonary disease, unspecified J44.9 [facility] [address] 79095- 7026 Feb, Hypoxemia R09.02 and Chronic obstructive pulmonary disease, unspecified J44.9 [facility] [address] 00057- 4721 Jan, Bipolar 1 disorder, depressed, moderate F31.32 ; Panic disorder with agoraphobia F40.01 ; Chronic post-traumatic stress disorder (PTSD ) F43.12 ; Diabetes E11.9 and Moderate persistent asthma without complication J45.40 [facility] [id number] [place] [address] 18931 2546 22 Jan, 2017 [facility] [address] 19859 2546 19 Jan, 2017 Acute non-recurrent maxillary sinusitis J01.00 [facility] [id number] [place] [address] 85321 2546 18 Jan, 2017 [facility] [address] 58256 2546 Jan, [facility] [address] 20608 2546 Jan, Moderate persistent asthma without complication J45.40 and Hypoxemia R09.02 [facility] [id number] [place] [address] 10070 2546 Jan, Moderate persistent asthma without complication J45.40 and Hypoxemia R09.02 [facility] [id number] [place] [address] 26943 2546 Jan, [facility] [id number] [place] [address] 26268 2546 Dec, Acute non-recurrent maxillary sinusitis J01.00 [facility] [id number] [place] [address] 72899 2546 Dec, Chronic obstructive pulmonary disease, unspecified J44.9 [facility] [address] 81878 2546 Dec, [facility] [address] 94572 2546 Dec, Mild persistent asthma without complication J45.30 and Other chronic pain G89.29 [facility] [address] [place] [address]- 8977 Nov, [facility] [id number] [place] [address] 46122- 9935 Nov, Acute non-recurrent maxillary sinusitis J01.00 [facility] [id number] [place] [address] 27094- 7439 Nov, [facility] [id number] [place] [address] 64152- 9921 Nov, [facility] [id number] [place] [address] 53672- 6387 Oct, [facility] [id number] [place] [address] 31693- 6339 Oct, Bipolar 1 disorder, depressed, partial remission F31.75 ; Panic disorder with agoraphobia F40.01 and Chronic post-traumatic stress disorder (PTSD) F43.12 [facility] [id number] [place] [address] 68468- 9381 Oct, Acute non-recurrent maxillary sinusitis J01.00 [facility] [id number] [place] [address] 60954- 2422 Oct, [facility] [id number] [place] [address] 30247- 4969 Oct, Diabetes E11.9 [facility] [id number] [place] [address] 66701- 8651 September, Diabetes E11.9 [facility] [id number] [place] [address] 88164- 7817 September, Diabetes E11.9 and Sinus tachycardia R00.0 [facility] [id number] [place] [address] 83278- 5237 September, [facility] [id number] [place] [address] 04716- 7243 September, [facility] [id number] [place] [address] 41672- 9353 Aug, Diabetes E11.9 and Lumbago with sciatica, right side M54.41 [facility] [id number] [place] [address] 63558- 8178 Aug, [facility] [id number] [place] [address] 67718- 0986 Jul, Bipolar 1 disorder, depressed, moderate F31.32 ; Panic disorder with agoraphobia F40.01 and Chronic post-traumatic stress disorder ( PTSD) F43.12 [facility] [id number] [place] [address] 03254- 7342 Jul, Sore throat J02.9 [facility] [id number] [place] [address] 71462- 6575 Jul, [facility] [id number] [place] [address] 28042- 3042 Jul, [facility] [id number] [place] [address] 37862- 7305 Jul, [facility] [id number] [place] [address] 02675- 6481 Jul, [facility] [id number] [place] [address] 75769- 3124 Jul, Sore throat J02.9 and Pharyngitis, unspecified etiology J02.9 [facility] [address], [place] [address]- 5583 Jun, [facility] [address], [place] [address]- 4560 Jun, Diabetes E11.9 [facility] [address] [place] [address] 35367- 2796 Jun, [facility] [id number] [place] [address] 60244- 5288 Jun, [facility] [id number] [address]- 2727 16 Jun, 2016 [facility] [address], [place] [address]- 9006 Jun, [facility] [address], [place] [address]- 4016 Jun, [facility] [id number] [place] [address] 31395- 5286 Jun, [facility] [id number] [place] [address] 82565- 5008 Jun, [facility] [id number] [place] [address] 37594- 4331 Jun, [facility] [address] [place] [address] 70455- 9472 May, Diabetes E11.9 ; Other chronic pain G89.29 ; Acute recurrent maxillary sinusitis J01.01 ; Bipolar I disorder with depression F31.9 and Anxiety disorder, unspecified F41.9 [facility] [address] [place] [address]- 2668 May, [facility] [address] [place] [address] 61835- 2640 May, Diabetes E11.9 ; Bipolar I disorder with depression F31.9 ; Anxiety disorder, unspecified F41.9 ; Other chronic pain G89.29 and Acute recurrent maxillary sinusitis J01.01 [facility] [address], [place] [address]- 1826 May, [facility] [address] [place] [address] 00822- 4663 May, Attention deficit hyperactivity disorder (ADHD), predominantly inattentive type F90.0 [facility] [address] [place] [address]- 9189 May, [facility] [id number] [place] [address] 77114- 3902 Apr, Attention deficit hyperactivity disorder (ADHD), predominantly inattentive type F90.0 and Non-seasonal allergic rhinitis due to other allergic trigger J30.89 [facility] [id number] [place] [address] 58463- 2179 Apr, Bipolar 1 disorder, depressed, moderate F31.32 ; Panic disorder with agoraphobia F40.01 and Chronic post-traumatic stress disorder ( PTSD) F43.12 [facility] [id number] [place] [address] 00345- 9993 Apr, Dental examination Z01.20 [facility] [id number] [place] [address] 70536- 8302 Mar, [facility] [id number] [place] [address] 62447- 6586 Mar, [facility] [id number] [place] [address] 20589- 9095 Mar, Bipolar I disorder with depression F31.9 and Anxiety disorder, unspecified F41.9 [facility] [id number] [place] [address] 29176- 6951 Mar, Panic disorder with agoraphobia F40.01 ; Bipolar 1 disorder , depressed, moderate F31.32 and Chronic post-traumatic stress disorder (PTSD) F43.12 [facility] [id number] [place] [address] 61209- 1240 Mar, [facility] [id number] [place] [address] 45107- 6263 Mar, Dental caries K02.9 [facility] [id number] [place] [address] 15595- 2950 Feb, Lumbago with sciatica, left side M54.42 ; Lumbago with sciatica, right side M54.41 and Other chronic pain G89.29 [facility] [id number] [place] [address] 19966- 2889 Feb, [facility] [id number] [place] [address] 00403- 2325 14 Feb, 2016 [facility] [id number] [place] [address] [phone] Feb, Bipolar I disorder with depression F31.9 ; PTSD (post- traumatic stress disorder) F43.10 and Mood disorder F39 [facility] [address] [phone]- [phone] Feb, [facility] [id number] [place] [address] [phone] 11 Feb, 2016 Dental examination Z01.20 [place] [address] [phone] 07 Feb, 2016 [facility] [id number] [place] [address] [phone] 03 Feb, 2016 Acute bronchitis, unspecified organism J20.9 [facility] [id number] [place] [address] [phone] 26 Jan, 2016 Mood disorder F39 ; Migraine without aura and without status migrainosus, not intractable G43.009 ; Irritable bowel syndrome, unspecified type K58.9 ; Diabetes E11.9 and Encounter for immunization Z23 [facility] [id number] [place] [address] [phone] 15 Jan, 2016 [facility] [id number] [place] [address] [phone] Jan, [facility] [id number] [place] [address] 11648- 7742 Jan, [facility] [address] [address]250- 3666 Jan, [facility] [id number] [place] [address] 06222- 3796 Jan, [facility] [id number] [place] [address] 19000- 4871 Dec, Bipolar I disorder with depression F31.9 ; PTSD (post- traumatic stress disorder) F43.10 and Panic disorder with agoraphobia F40.01 [facility] [id number] [place] [address] 79679- 8847 Dec, Chronic obstructive pulmonary disease, unspecified COPD type J44.9 ; Tremor R25.1 and Anxiety F41.9 [place] [address] 99442- 4501 Dec, [facility] [address] 95068- 0004 Nov, Tremors of nervous system R25.1 and Cramping of feet R25.2 [place] [id number] [place] [address] 12856- 7033 Nov, [place] [address] 21389- 4077 Nov, [facility] [id number] [place] [address] 50496- 5364 Oct, Chronic obstructive pulmonary disease, unspecified J44.9 [place] [id number] [place] [address] 92568- 8225 Oct, [place] [id number] [place] [address] 12108- 9036 Oct, Tremor R25.1 [facility] [address] 83764- 5536 Oct, Bipolar I disorder with depression F31.9 ; Diabetes E11.9 ; PTSD (post-traumatic stress disorder) F43.10 and Panic disorder with agoraphobia F40.01 [facility] [id number] [place] [address] 44155- 1301 Oct, Mood disorder F39 [facility] [id number] [place] [address] 60476- 2512 September, [facility] [id number] [place] [address] 15413- 8347 September, Diabetes E11.9 ; Bipolar I disorder with depression F31.9 ; PTSD (post-traumatic stress disorder) F43.10 and Panic disorder with agoraphobia F40.01 [place] [id number] [place] [address] 43202- 7485 September, Mood disorder F39 ; Schizoaffective disorder, unspecified type F25.9 ; Arthritis M19.90 ; Tremor R25.1 ; Acute non-recurrent frontal sinusitis J01.10 and Blood in stool K92.1 [place] [id number] [place] [address] 54853- 6023 September, [place] [id number] [place] [address] 75523- 4069 September, Chronic obstructive pulmonary disease, unspecified J44.9 [place] [id number] [place] [address] 97345- 4593 September, Diabetes E11.9 [place] [id number] [place] [address] 00685- 4458 Aug, Other bipolar disorder F31.89 and Anxiety disorder, unspecified F41.9 [place] [id number] [place] [address] 44619- 0966 Aug, [place] [id number] [place] [address] 43918- 3173 Aug, Diabetes E11.9 [place] [id number] [place] [address] 82342- 9562 Aug, [place] [id number] [place] [address] 37446- 6196 14 Aug, 2015 Diabetes E11.9 ; Fatigue R53.83 and Dizziness R42 [place] [id number] [place] [address] 02219- 3270 Aug, Other bipolar disorder F31.89 [place] [address], [place] [address] 3967 Aug, Generalized anxiety disorder F41.1 [facility] [id number] [place] [address] 65857- 9886 Aug, Other bipolar disorder F31.89 and Anxiety disorder, unspecified F41.9 [facility] [id number] [place] [address] 42259- 7566 Aug, [facility] [id number] [place] [address] 43632- 6167 Jul, [facility] [id number] [place] [address] 60416- 2552 Jul, [facility] [id number] [place] [address] 66688- 5027 Jul, Bronchitis J40 [facility] [id number] [place] [address] 25831- 6189 Jul, Anxiety disorder F41.9 [facility] [id number] [place] [address] 98337- 9088 Jul, Other bipolar disorder F31.89 and Anxiety disorder, unspecified F41.9 [facility] [address], [place] [address]- 2019 Jul, Other bipolar disorder F31.89 and Fibromyalgia M79.7 [facility] [address], [place] [address]- 5936 Jul, [facility] [address], [place] [address]- 2540 Jul, [facility] [id number] [place] [address] 91622- 4666 Jul, [facility] [id number] [place] [address] 05578- 2547 Jul, Other bipolar disorder F31.89 and Anxiety disorder, unspecified F41.9 [facility] [id number] [place] [address] 10627- 5148 Jun, GERD (gastroesophageal reflux disease) K21.9 [facility] [address] 64977- 1314 Jun, [facility] [id number] [place] [address] 96288- 2535 May, [facility] [address] 54760- 5890 May, Diabetes E11.9 ; Back pain M54.9 ; GERD (gastroesophageal reflux disease) K21.9 ; Hypertension I10 and Peripheral neuropathy G62.9 [facility] [id number] [place] [address] 20530- 4299 Mar, [facility] [id number] [place] [address] 05695- 3490 Mar, [facility] [id number] [place] [address] 75125- 1691 Mar, Acute sinusitis J01.90 and Otitis media, left H66.92 [facility] [id number] [place] [address] 05484- 5651 Feb, [facility] [id number] [place] [address] 56995- 9173 Feb, [facility] [id number] [place] [address] 24896- 1224 15 Feb, 2015 [facility] [id number] [place] [address] 97598- 4542 Feb, [facility] [id number] [place] [address] 98897- 8889 29 Jan, 2015 [facility] [id number] [place] [address] 30891- 8319 24 Jan, 2015 Diabetes 250.00 and Back pain 724.5 [facility] [address] 00691- 2371 Jan, [facility] [id number] [place] [address] 39462- 1677 Dec, Diabetes 250.00 ; Benign essential hypertension 401.1 and Allergic rhinitis 477.9 [facility] [id number] [place] [address] 87561- 7901 Dec, [facility] [id number] [place] [address] 21880- 5221 Dec, [facility] [id number] [place] [address] 37596- 5256 Dec, Psychosis 298.9 [facility] [address] 64989- 2667 Dec, Medication side effect 995.20 and Generalized anxiety disorder 300.02 [facility] [id number] [place] [address] 99666- 6167 Dec, Acquired cognitive dysfunction 294.9 [facility] [id number] [place] [address] 59404- 4094 Dec, [facility] [id number] [place] [address] 40208- 1542 Dec, Unspecified myalgia and myositis 729.1 and Generalized anxiety disorder 300.02 [facility] [id number] [place] [address] 57489- 7481 Nov, [facility] [id number] [place] [address] 25154- 3027 Nov, [facility] [id number] [place] [address] 84565- 4251 Nov, [facility] [id number] [place] [address] 50283- 8530 Nov, Upper respiratory infection 465.9 and Chronic airway obstruction, not elsewhere classified 496 [facility] [id number] [place] [address] 89992- 5814 Nov, Hyponatremia 276.1 [facility] [address], [place] [address]- 9733 Oct, [facility] [address], [place] [address]- 6986 Oct, [facility] [address], [place] [address]- 3327 Oct, [facility] [id number] [place] [address] 07291- 3777 Oct, [facility] [id number] [place] [address] 06485- 2985 Oct, Hyponatremia 276.1 [facility] [id number] [place] [address] 46737- 9371 Oct, [facility] [id number] [place] [address] 22540- 3823 Oct, [facility] [address], [place] [address]- 9614 Oct, Generalized anxiety disorder 300.02 [facility] [id number] [place] [address] 15387- 6092 Oct, Generalized anxiety disorder 300.02 and Diabetes 250.00 [facility] [address], [place] [address]- 7539 Aug, [facility] [address], [place] [address]- 4672 Aug, [facility] [address], [place] [address]- 6685 Jul, [facility] [id number] [address]- 4488 Jul, [facility] [address], [place] [address]- 0409 Jun, [facility] [id number] [place] [address] 07835- 4892 Jun, [facility] [address] [id number] [place] [address]- 6392 Jun, [facility] [place] [facility] [address] [id number] [place] [address]- 7996 Jun, [facility] [place] [facility] [address] [facility] [id number] [place] [address]- 9806 Jun, [facility] [place] [facility] [address] [id number] [place] [address]- 4806 May, [facility] [place] [facility] [address] [id number] [place] [address]- 0409 May, [facility] [address] [id number] [place] [address]- 8663 Apr, [facility] [address] [id number] [place] [address]- 2502 Apr, [facility] [place] [facility] [address] [id number] [place] [address]- 9089 Apr, [facility] [address] [id number] [place] [address]- 3126 Apr, [facility] [place] [facility] [address] [facility] [id number] [place] [address]- 3624 Apr, [facility] [place] [facility] [address] [facility] [id number], [place] [address]- 4556 Apr, [facility] [place] [facility] [address] [id number], [place] [address]- 2061 Apr, [facility] [place] [facility] [address] [id number] [place] [address]- 9949 Apr, [facility] [place] [facility] [address] [id number] [place] [address]- 1849 Feb, [facility] [place] [facility] [address] [facility] [id number] [place] [address]- 7781 Feb, [facility] [place] [facility] [address] [id number] [place] [address]- 2546 Jan, [facility] [address] [id number] [place] [address]- 1626 Jan, [facility] [place] [facility] [address] [id number] [place] [address]- 2546 Dec, [facility] [address] [id number] [place] [address]- 2546 Dec, [facility] [address] [id number] [place] [address] 2546 Dec, [facility] [address] [id number] [place] [address]- 5842 Nov, [facility] [address] [id number] [place] [address]- 7196 Nov, [facility] [address] [id number] [place] [address]- 1477 Nov, [facility] [address] [id number] [place] [address]- 3677 Oct, [facility] [address] [id number] [place] [address]- 7020 Oct, [facility] [address] [id number] [place] [address]- 4536 Oct, [facility] [address] [id number] [place] [address]- 7726 September, [facility] [address] [id number] [place] [address]- 6035 September, [facility] [place] [facility] [address] [id number] [place] [address]- 2546 September, [facility] [address] [id number] [place] [address]- 2546 Aug, [facility] [place] [facility] [address] [id number] [place] [address]- 0757 Aug, [facility] [address] [id number] [place] [address]- 6550 Aug, [facility] [place] [facility] [address] [id number] [place] [address]- 2096 16 Aug, 2011 [facility] [place] [facility] [address] [id number] [place] [address]- 4049 Jul, [facility] [place] [facility] [address] [id number] [place] [address]- 2852 Jun, [facility] [place] [facility] [address] [id number] [place] [address]- 2808 14 Jun, 2011 [facility] [place] [facility] [address] [id number] [place] [address]- 5433 Jun, [facility] [place] [facility] [address] [id number] [place] [address]- 9179 Jun, [facility] [place] [facility] [address] [id number] [place] [address]- 0906 Jun, [facility] [place] [facility] [address] [id number] [place] [address]- 4735 May, [facility] [place] [facility] [address] [id number] [place] [address]- 9210 May, [facility] [place] [facility] [address] [id number] [place] [address]- 2501 May, [facility] [place] [facility] [address] [id number] [place] [address]- 8082 May, [facility] [place] [facility] [address] [id number] [place] [address]- 0816 Apr, [facility] [place] [facility] [address] [id number] [place] [address]- 6468 Apr, [facility] [place] [facility] [address] [id number] [place] [address]- 8528 Apr, [facility] [place] [facility] [address] [id number] [place] [address]- 9150 Mar, [facility] [address] [id number] [place] [address]- 2146 Mar, [facility] [address] [id number] [place] [address]- 1332 Mar, [facility] [address] [id number] [place] [address]- 1365 13 Feb, 2011 [facility] [address] [id number] [place] [address]- 6532 13 Feb, 2011 [facility] [id number] [place] [address], [place] [address]- 6987 Feb, [facility] [address] [facility] [id number] [place] [address]- 7658 Nov, [facility] [address] [facility] [id number] [place] [address]- 8393 September, [facility] [address] [facility] [id number] [place] [address]- 6210 Aug, [facility] [address] [facility] [id number] [place] [address]- 8521 14 Jul, 2010 [facility] [address] [facility] [id number] [place] [address]- 0260 May, [facility] [address] [facility] [id number] [place] [address]- 1388 Apr, [facility] [address] [id number] [place] [address]- 0481 30 Apr, 2010 [facility] [address] [facility] [id number] [place] [address]- 8363 Apr, [facility] [address] [facility] [id number] [place] [address]- 4887 Apr, [facility] [address] [facility] [id number] [place] [address]- 5316 Apr, IMMUNIZATIONS No Known Immunizations SOCIAL HISTORY Never Assessed REASON FOR VISIT PA for Diclofenac gel PLAN OF CARE VITAL SIGNS MEDICATIONS Unknown [...]
--- OUTSIDE RECORDS SUMMARY | 2017-11-18 07:34 | XMS REPORT ---
Author Author WHIT GANDHI [facility] Address [address] [place] [address] Care Team Providers Care Salvage Engineer Name Role Phone WHIT GANDHI Unavailable PROBLEMS Type Condition ICD9-CM Code [id number] Code Onset Dates Condition Status SNOMED Code Problem Back pain M54.9 Active 456824634 Problem Diabetes E11.9 Active 69415582 Problem GERD (gastroesophageal reflux disease) K21.9 Active 303365235 Problem Hypertension I10 Active 97574753 Problem Anxiety disorder, unspecified F41.9 Active 166549744 Problem Other bipolar disorder F31.89 Active 78924542 Problem Fibromyalgia M79.7 Active 46871810 Problem Panic disorder with agoraphobia F40.01 Active 88437846 Problem Panlobular emphysema J43.1 Active 0771869 Problem Chronic obstructive pulmonary disease, unspecified J44.9 Active 73779309 Problem Akathisia G25.71 Active 809201302 Problem Lumbago with sciatica, left side M54.42 Active 912506886 Problem Migraine without aura and without status migrainosus, not intractable G43.009 Active 404910323 Problem Fibrocystic disease of right breast N60.11 Active 78674711 Problem Fibrocystic disease of left breast N60.12 Active 03944458 Problem Slow transit constipation K59.01 Active 61839644 Problem Essential tremor G25.0 Active 505998384 Problem Bipolar 1 disorder, depressed, moderate F31.32 Active 45499721 Problem Other chronic pain G89.29 Active 20336714 Problem Lumbago with sciatica, right side M54.41 Active 765747019 Problem Irritable bowel syndrome with constipation K58.1 Active 304823855 Problem Arthritis M19.90 Active 2107779 Problem Schizoaffective disorder, bipolar type F25.0 Active 85390488 Problem Irritable bowel syndrome with both constipation and diarrhea K58.2 Active 85660658 Problem Attention deficit hyperactivity disorder (ADHD), predominantly inattentive type F90.0 Active 38890940 Problem Bipolar I disorder with depression F31.9 Active 42212640 Problem Chronic post-traumatic stress disorder (PTSD) F43.12 Active 373647401 Problem Bipolar affective disorder, remission status unspecified F31.9 Active 26023266 Problem Mild persistent asthma without complication J45.30 Active 566934444 Problem Moderate persistent asthma without complication J45.40 Active 196196384 Problem Acute non-recurrent maxillary sinusitis J01.00 Active 07288468 Problem Bipolar 1 disorder, depressed, partial remission F31.75 Active 66529207 ALLERGIES No Information ENCOUNTERS Encounter Location Date Diagnosis [facility] [id number] [place] [address] 50674- 2749 Nov, [facility] [address] 89304- 1051 Nov, [facility] [address] 31085- 9872 Nov, [facility] [address] 58197- 4100 Oct, [facility] [id number] [place] [address] 94317- 3303 Oct, [facility] [id number] [place] [address] 19422- 6906 Oct, Type 2 diabetes mellitus with diabetic neuropathy, unspecified whether chcf insulin use E11.40 ; Diabetes E11.9 ; Slow transit constipation K59.01 ; Edema of both legs R60.0 and Dysfunction of right eustachian tube H69.81 [facility] [id number] [place] [address] 88275- 2288 Oct, Frequent headaches R51 [facility] [address] 72919- 7248 Oct, [facility] [id number] [place] [address] 93136- 3242 Oct, [facility] [address] 16550- 0175 Oct, [facility] [address] [place] [address] 7069 Oct, [facility] [id number] [place] [address] 17083- 7071 Oct, [facility] [address], [place] [address]- 9489 Oct, [facility] [id number] [place] [address] 93552- 4963 Oct, [facility] [id number] [place] [address] 03632- 3520 Oct, [facility] [id number] [place] [address] 96894- 0032 September, Frequent headaches R51 [facility] [id number] [place] [address] 85767- 2059 September, Bilateral otitis media with effusion H65.93 ; Dizziness R42 and Essential tremor G25.0 [facility] [id number] [place] [address] 58687- 6552 September, Chronic obstructive pulmonary disease, unspecified COPD type J44.9 [facility] [id number] [address] 7120 September, Chronic obstructive pulmonary disease, unspecified COPD type J44.9 [facility] [address] [place] [address]- 7853 September, Migraine without aura and without status migrainosus, not intractable G43.009 [facility] [address], [place] [address]- 9281 September, [facility] [id number] [place] [address] 92343- 3929 September, [facility] [address], [place] [address]- 1668 September, [facility] [id number] [place] [address] 04588- 8344 September, Frequent headaches R51 [facility] [id number] [place] [address] 67533- 7227 Aug, [facility] [id number] [place] [address] 22786- 7055 Aug, Breast mass, right N63.10 [facility] [address] 57505- 6633 Aug, Breast lump N63.0 [facility] [address] 61182- 2350 Aug, [facility] [address] 31379- 2502 Aug, Bipolar affective disorder, remission status unspecified F31.9 and Diabetes E11.9 [facility] [id number] [place] [address] 13639- 7480 Aug, Diabetes E11.9 ; Schizoaffective disorder, bipolar type F25.0 ; Pharyngitis due to other organism J02.8 ; Panlobular emphysema J43.1 and Irritable bowel syndrome with both constipation and diarrhea K58.2 [facility] [id number] [place] [address] 30853- 5069 Aug, Abnormal mammogram R92.8 [facility] [id number] [place] [address] 35553- 0204 Aug, [facility] [id number] [place] [address] 34186- 8259 Aug, Bipolar 1 disorder, depressed, moderate F31.32 ; Panic disorder with agoraphobia F40.01 and Chronic post-traumatic stress disorder ( PTSD) F43.12 [facility] [id number] [place] [address] 50191- 7417 Aug, [facility] [id number] [place] [address] 19271- 9467 Aug, [facility] [id number] [place] [address] 17367- 7289 Aug, [facility] [id number] [place] [address] 98318013- 5899 Jul, [facility] [id number] [place] [address] 21414- 8470 20 Jul, 2017 Mild persistent asthma without complication J45.30 [facility] [id number] [place] [address] 57914- 9639 19 Jul, 2017 Mild persistent asthma without complication J45.30 [facility] [id number] [place] [address] 263956- 7470 15 Jul, 2017 Bipolar affective disorder, remission status unspecified F31.9 ; Diabetes E11.9 and Irritable bowel syndrome with constipation K58.1 [facility] [id number] [place] [address] 96859- 1449 Jul, [facility] [id number] [place] [address] 55036- 9850 Jul, [facility] [id number] [place] [address] 36398- 9357 Jul, Frequent headaches R51 [facility] [id number] [place] [address] 21270- 1854 Jul, [facility] [id number] [place] [address] 39157- 5322 Jul, [facility] [id number] [place] [address] 12252- 1158 Jul, [facility] [id number] [place] [address] 66062623- 9935 Jul, Frequent headaches R51 ; Fibrocystic disease of left breast N60.12 ; Fibrocystic disease of right breast N60.11 and Diabetes E11.9 [facility] [id number] [place] [address] 71320- 3148 Jul, [facility] [id number] [place] [address] 52036- 4111 Jul, [facility] [id number] [place] [address] 58679- 0773 Jun, Exudative tonsillitis J03.90 [facility] [id number] [place] [address] 32987- 1543 Jun, [facility] [id number] [place] [address] 89123- 4960 Jun, [facility] [id number] [place] [address] 27632- 2824 15 Jun, 2017 Mild persistent asthma without complication J45.30 ; Chronic obstructive pulmonary disease, unspecified COPD type J44.9 and Exudative tonsillitis J03.90 [facility] [id number] [place] [address] 20480- 9253 13 Jun, 2017 Encounter for immunization Z23 [facility] [id number] [place] [address] 09508- 9467 Jun, [facility] [id number] [place] [address] 93128- 9643 Jun, [facility] [id number] [place] [address] 95492- 7031 Jun, [facility] [id number] [place] [address] 35983 -3624 Jun, Tonsillitis J03.90 [facility] [id number] [place] [address] 72304- 3841 Jun, [facility] [id number] [place] [address] 33662- 2198 Jun, Acute non-recurrent maxillary sinusitis J01.00 [facility] [id number] [place] [address] 59073- 8314 Jun, [facility] [id number] [place] [address] 85185- 3125 May, [facility] [address] 32524- 7341 May, [facility] [id number] [place] [address] 23718- 2251 May, GERD (gastroesophageal reflux disease) K21.9 [facility] [facility] [address] 33806- 1381 May, Migraine without aura and without status migrainosus, not intractable G43.009 [facility] [facility] [address] 69740- 6809 May, [facility] [facility] [address] 81905- 8417 May, [facility] [facility] [address] 29982- 4405 May, Panlobular emphysema J43.1 and Acute non-recurrent maxillary sinusitis J01.00 [facility] [id number] [place] [address] 54461- 6615 May, Bipolar 1 disorder, depressed, moderate F31.32 ; Panic disorder with agoraphobia F40.01 and Akathisia G25.71 [facility] [id number] [place] [address] 98471- 8803 Apr, [facility] [id number] [place] [address] 43235- 4093 Apr, [facility] [id number] [place] [address] 36382- 1207 Apr, Acute non-recurrent maxillary sinusitis J01.00 [facility] [id number] [place] [address] 58328- 0703 Apr, Panlobular emphysema J43.1 [place] [address] [place] [address]- 7359 Apr, [facility] [id number] [place] [address] 77162 -7825 Apr, Exudative tonsillitis J03.90 and Sore throat J02.9 [facility] [id number] [place] [address] 49155- 4882 17 Mar, 2017 [facility] [address] 54244- 6026 Mar, Acute non-recurrent maxillary sinusitis J01.00 [place] [address] 38024- 7227 Mar, [facility] [address] 78713- 0676 Mar, Panlobular emphysema J43.1 and Diabetes E11.9 [place] [facility] [address] 88787- 4598 Mar, [facility] [id number] [place] [address] 19573 -7142 Feb, Wheezing R06.2 and Acute recurrent pansinusitis J01.41 [facility] [id number] [place] [address] 26752- 9978 Feb, [facility] [id number] [place] [address] 77030- 6185 Feb, Acute non-recurrent maxillary sinusitis J01.00 [facility] [id number] [place] [address] 81256- 2371 Feb, Chronic obstructive pulmonary disease, unspecified J44.9 [place] [facility] [address] 60422- 2874 Feb, Hypoxemia R09.02 and Chronic obstructive pulmonary disease, unspecified J44.9 [facility] [address] 00815- 6238 Jan, Bipolar 1 disorder, depressed, moderate F31.32 ; Panic disorder with agoraphobia F40.01 ; Chronic post-traumatic stress disorder (PTSD ) F43.12 ; Diabetes E11.9 and Moderate persistent asthma without complication J45.40 [facility] [id number] [place] [address] 41255 2546 22 Jan, 2017 [facility] [address] 38359 2546 19 Jan, 2017 Acute non-recurrent maxillary sinusitis J01.00 [facility] [id number] [place] [address] 78212 2546 18 Jan, 2017 [facility] [address] 20252 2546 Jan, [facility] [address] 38708 2546 Jan, Moderate persistent asthma without complication J45.40 and Hypoxemia R09.02 [facility] [id number] [place] [address] 90538 2546 Jan, Moderate persistent asthma without complication J45.40 and Hypoxemia R09.02 [facility] [id number] [place] [address] 25670 2546 Jan, [facility] [id number] [place] [address] 45247 2546 Dec, Acute non-recurrent maxillary sinusitis J01.00 [facility] [id number] [place] [address] 93057 2546 Dec, Chronic obstructive pulmonary disease, unspecified J44.9 [facility] [address] 26154 2546 Dec, [facility] [address] 89697 2546 Dec, Mild persistent asthma without complication J45.30 and Other chronic pain G89.29 [facility] [address] [place] [address]- 2303 Nov, [facility] [id number] [place] [address] 95378- 9467 Nov, Acute non-recurrent maxillary sinusitis J01.00 [facility] [id number] [place] [address] 90975- 1002 Nov, [facility] [id number] [place] [address] 11184- 7332 Nov, [facility] [id number] [place] [address] 90483- 0229 Oct, [facility] [id number] [place] [address] 97247- 5564 Oct, Bipolar 1 disorder, depressed, partial remission F31.75 ; Panic disorder with agoraphobia F40.01 and Chronic post-traumatic stress disorder (PTSD) F43.12 [facility] [id number] [place] [address] 91006- 4413 Oct, Acute non-recurrent maxillary sinusitis J01.00 [facility] [id number] [place] [address] 18684- 8921 Oct, [facility] [id number] [place] [address] 39565- 4384 Oct, Diabetes E11.9 [facility] [id number] [place] [address] 99066- 5882 September, Diabetes E11.9 [facility] [id number] [place] [address] 67248- 9743 September, Diabetes E11.9 and Sinus tachycardia R00.0 [facility] [id number] [place] [address] 25072- 4965 September, [facility] [id number] [place] [address] 29517- 0708 September, [facility] [id number] [place] [address] 62355- 6632 Aug, Diabetes E11.9 and Lumbago with sciatica, right side M54.41 [facility] [id number] [place] [address] 06994- 8610 Aug, [facility] [id number] [place] [address] 83679- 8188 Jul, Bipolar 1 disorder, depressed, moderate F31.32 ; Panic disorder with agoraphobia F40.01 and Chronic post-traumatic stress disorder ( PTSD) F43.12 [facility] [id number] [place] [address] 95060- 8986 Jul, Sore throat J02.9 [facility] [id number] [place] [address] 72403- 0722 Jul, [facility] [id number] [place] [address] 73617- 8799 Jul, [facility] [id number] [place] [address] 08046- 6081 Jul, [facility] [id number] [place] [address] 41808- 2211 Jul, [facility] [id number] [place] [address] 34428- 8758 Jul, Sore throat J02.9 and Pharyngitis, unspecified etiology J02.9 [facility] [address] [place] [address]- 3822 Jun, [facility] [address], [place] [address]- 0377 Jun, Diabetes E11.9 [facility] [id number] [place] [address] 10002- 8656 Jun, [facility] [id number] [place] [address] 06153- 0808 Jun, [facility] [address] [address]- 7308 16 Jun, 2016 [facility] [address] [place] [address]- 1812 Jun, [facility] [address] [place] [address]- 4691 Jun, [facility] [id number] [place] [address] 13187- 6267 Jun, [facility] [id number] [place] [address] 21304- 4136 Jun, [facility] [id number] [place] [address] 29058- 4628 Jun, [facility] [id number] [place] [address] 10572- 0778 May, Diabetes E11.9 ; Other chronic pain G89.29 ; Acute recurrent maxillary sinusitis J01.01 ; Bipolar I disorder with depression F31.9 and Anxiety disorder, unspecified F41.9 [facility] [address] [place] [address]- 4718 May, [facility] [id number] [place] [address] 38004- 8896 May, Diabetes E11.9 ; Bipolar I disorder with depression F31.9 ; Anxiety disorder, unspecified F41.9 ; Other chronic pain G89.29 and Acute recurrent maxillary sinusitis J01.01 [facility] [address] [place] [address]- 5804 May, [facility] [id number] [place] [address] 08650- 7380 May, Attention deficit hyperactivity disorder (ADHD), predominantly inattentive type F90.0 [facility] [address] [place] [address]- 1461 May, [facility] [id number] [place] [address] 25318- 9650 Apr, Attention deficit hyperactivity disorder (ADHD), predominantly inattentive type F90.0 and Non-seasonal allergic rhinitis due to other allergic trigger J30.89 [place] [id number] [place] [address] 12424- 2343 Apr, Bipolar 1 disorder, depressed, moderate F31.32 ; Panic disorder with agoraphobia F40.01 and Chronic post-traumatic stress disorder ( PTSD) F43.12 [place] [id number] [place] [address] 59427- 9042 Apr, Dental examination Z01.20 [place] [place] [id number] [place] [address] 18166- 6162 Mar, [place] [id number] [place] [address] 63351- 5152 Mar, [place] [id number] [place] [address] 84294- 9679 Mar, Bipolar I disorder with depression F31.9 and Anxiety disorder, unspecified F41.9 [place] [id number] [place] [address] 54536- 3885 Mar, Panic disorder with agoraphobia F40.01 ; Bipolar 1 disorder , depressed, moderate F31.32 and Chronic post-traumatic stress disorder (PTSD) F43.12 [place] [id number] [place] [address] 36347- 2301 Mar, [place] [id number] [place] [address] 83934- 4630 Mar, Dental caries K02.9 [place] [id number] [place] [address] 69800- 8563 Feb, Lumbago with sciatica, left side M54.42 ; Lumbago with sciatica, right side M54.41 and Other chronic pain G89.29 [place] [id number] [place] [address] 05631- 8671 Feb, [facility] [id number] [place] [address] 51079- 3664 14 Feb, 2016 [facility] [id number] [place] [address] 98060- 9500 Feb, Bipolar I disorder with depression F31.9 ; PTSD (post- traumatic stress disorder) F43.10 and Mood disorder F39 [facility] [address] 57790- 5091 Feb, [facility] [id number] [place] [address] 25131- 8958 11 Feb, 2016 Dental examination Z01.20 [place] [address] [phone] 07 Feb, 2016 [facility] [id number] [place] [phone] 03 Feb, 2016 Acute bronchitis, unspecified organism J20.9 [facility] [id number] [place] [address] [phone]- [phone] 26 Jan, 2016 Mood disorder F39 ; Migraine without aura and without status migrainosus, not intractable G43.009 ; Irritable bowel syndrome, unspecified type K58.9 ; Diabetes E11.9 and Encounter for immunization Z23 [facility] [id number] [place] [address] [phone]- [phone] 15 Jan, 2016 [facility] [id number] [place] [address] [phone] Jan, [facility] [id number] [place] [phone] Jan, [facility] [address] [address]- [phone] Jan, [facility] [id number] [place] [address] [phone] Jan, [facility] [address] [id number] [place] [address] 02863- 7994 Dec, Bipolar I disorder with depression F31.9 ; PTSD (post- traumatic stress disorder) F43.10 and Panic disorder with agoraphobia F40.01 [facility] [id number] [place] [address] 74890- 5974 Dec, Chronic obstructive pulmonary disease, unspecified COPD type J44.9 ; Tremor R25.1 and Anxiety F41.9 [place] [address] 82383- 9372 Dec, [facility] [address] 40686- 5992 Nov, Tremors of nervous system R25.1 and Cramping of feet R25.2 [place] [id number] [place] [address] 46810- 8507 Nov, [place] [address] 63178- 2682 Nov, [facility] [id number] [place] [address] 71827- 2515 Oct, Chronic obstructive pulmonary disease, unspecified J44.9 [place] [id number] [place] [address] 80288- 1358 Oct, [place] [id number] [place] [address] 79819- 9820 Oct, Tremor R25.1 [facility] [address] 31227- 5339 Oct, Bipolar I disorder with depression F31.9 ; Diabetes E11.9 ; PTSD (post-traumatic stress disorder) F43.10 and Panic disorder with agoraphobia F40.01 [facility] [id number] [place] [address] 71441- 5863 Oct, Mood disorder F39 [facility] [id number] [place] [address] 11306- 7317 September, [facility] [id number] [place] [address] 30095- 7926 September, Diabetes E11.9 ; Bipolar I disorder with depression F31.9 ; PTSD (post-traumatic stress disorder) F43.10 and Panic disorder with agoraphobia F40.01 [place] [id number] [place] [address] 32031- 3276 September, Mood disorder F39 ; Schizoaffective disorder, unspecified type F25.9 ; Arthritis M19.90 ; Tremor R25.1 ; Acute non-recurrent frontal sinusitis J01.10 and Blood in stool K92.1 [place] [id number] [place] [address] 39563- 7471 September, [place] [id number] [place] [address] 60400- 8397 September, Chronic obstructive pulmonary disease, unspecified J44.9 [place] [id number] [place] [address] 46389- 2957 September, Diabetes E11.9 [place] [id number] [place] [address] 91540- 3787 Aug, Other bipolar disorder F31.89 and Anxiety disorder, unspecified F41.9 [place] [id number] [place] [address] 48241- 2521 Aug, [place] [id number] [place] [address] 56848- 0534 Aug, Diabetes E11.9 [place] [id number] [place] [address] 54720- 5427 Aug, [place] [id number] [place] [address] 86099- 6708 14 Aug, 2015 Diabetes E11.9 ; Fatigue R53.83 and Dizziness R42 [place] [id number] [place] [address] 28721- 1724 Aug, Other bipolar disorder F31.89 [place] [address] [address] 9190 Aug, Generalized anxiety disorder F41.1 [facility] [id number] [place] [address] 29939- 2406 Aug, Other bipolar disorder F31.89 and Anxiety disorder, unspecified F41.9 [facility] [id number] [place] [address] 09088- 3006 Aug, [facility] [id number] [place] [address] 69060- 4255 Jul, [facility] [id number] [place] [address] 79545- 8814 Jul, [facility] [id number] [place] [address] 75164- 4514 Jul, Bronchitis J40 [facility] [id number] [place] [address] 68860- 6810 Jul, Anxiety disorder F41.9 [facility] [id number] [place] [address] 84050- 4554 Jul, Other bipolar disorder F31.89 and Anxiety disorder, unspecified F41.9 [facility] [address] [address]- 4188 Jul, Other bipolar disorder F31.89 and Fibromyalgia M79.7 [facility] [address], [place] [address]- 8587 Jul, [facility] [address] [address]- 254 Jul, [facility] [id number] [place] [address] 33297- 4786 Jul, [facility] [id number] [place] [address] 60820- 2547 Jul, Other bipolar disorder F31.89 and Anxiety disorder, unspecified F41.9 [facility] [id number] [place] [address] 85229- 1055 Jun, GERD (gastroesophageal reflux disease) K21.9 [facility] [address] 80065- 0581 Jun, [facility] [id number] [place] [address] 32206- 0276 May, [facility] [address] 89250- 0896 May, Diabetes E11.9 ; Back pain M54.9 ; GERD (gastroesophageal reflux disease) K21.9 ; Hypertension I10 and Peripheral neuropathy G62.9 [facility] [id number] [place] [address] 85035- 2373 Mar, [facility] [id number] [place] [address] 87732- 1163 Mar, [facility] [id number] [place] [address] 34584- 6648 Mar, Acute sinusitis J01.90 and Otitis media, left H66.92 [facility] [id number] [place] [address] 27703- 7683 Feb, [facility] [id number] [place] [address] 12970- 9154 Feb, [facility] [id number] [place] [address] 24378- 3292 15 Feb, 2015 [facility] [id number] [place] [address] 22142- 5623 Feb, [facility] [id number] [place] [address] 94626- 7123 29 Jan, 2015 [facility] [id number] [place] [address] 92520- 4719 24 Jan, 2015 Diabetes 250.00 and Back pain 724.5 [facility] [address] 02710- 7585 Jan, [facility] [id number] [place] [address] 55035- 0459 Dec, Diabetes 250.00 ; Benign essential hypertension 401.1 and Allergic rhinitis 477.9 [facility] [id number] [place] [address] 12431- 7033 Dec, [facility] [id number] [place] [address] 69956- 8389 Dec, [facility] [id number] [place] [address] 39169- 6750 Dec, Psychosis 298.9 [facility] [address] 04790- 0242 Dec, Medication side effect 995.20 and Generalized anxiety disorder 300.02 [facility] [id number] [place] [address] 04210- 2045 Dec, Acquired cognitive dysfunction 294.9 [facility] [id number] [place] [address] 73228- 3434 Dec, [facility] [id number] [place] [address] 00178- 1290 Dec, Unspecified myalgia and myositis 729.1 and Generalized anxiety disorder 300.02 [facility] [id number] [place] [address] 24967- 9740 Nov, [facility] [id number] [place] [address] 48636- 1378 Nov, [facility] [id number] [place] [address] 69195- 6106 Nov, [facility] [id number] [place] [address] 37653- 6566 Nov, Upper respiratory infection 465.9 and Chronic airway obstruction, not elsewhere classified 496 [facility] [id number] [place] [address] 70275- 8659 Nov, Hyponatremia 276.1 [facility] [address], [place] [address]- 3144 Oct, [facility] [address], [place] [address]- 9259 Oct, [facility] [address], [place] [address]- 1340 Oct, [facility] [id number] [place] [address] 95560- 0397 Oct, [facility] [id number] [place] [address] 37973- 6726 Oct, Hyponatremia 276.1 [facility] [id number] [place] [address] 23260- 5695 Oct, [facility] [id number] [place] [address] 28115- 8588 Oct, [facility] [address], [place] [address]- 8836 Oct, Generalized anxiety disorder 300.02 [facility] [id number] [place] [address] 54113- 5729 Oct, Generalized anxiety disorder 300.02 and Diabetes 250.00 [facility] [address], [place] [address]- 8344 Aug, [facility] [address], [place] [address]- 1007 Aug, [facility] [address], [place] [address]- 9990 Jul, [facility] [id number] [address]- 4481 Jul, [facility] [address], [place] [address]- 9690 Jun, [facility] [id number] [place] [address] 78807- 0776 Jun, [facility] [address] [id number] [place] [address]- 2297 Jun, [facility] [place] [facility] [address] [id number] [place] [address]- 4766 Jun, [facility] [place] [facility] [address] [facility] [id number] [place] [address]- 5996 Jun, [facility] [place] [facility] [address] [id number] [place] [address]- 6363 May, [facility] [place] [facility] [address] [id number] [place] [address]- 8725 May, [facility] [address] [id number] [place] [address]- 6617 Apr, [facility] [address] [id number] [place] [address]- 4868 Apr, [facility] [place] [facility] [address] [id number] [place] [address]- 9198 Apr, [facility] [address] [id number] [place] [address]- 4611 Apr, [facility] [place] [facility] [address] [facility] [id number] [place] [address]- 1689 Apr, [facility] [place] [facility] [address] [facility] [id number], [place] [address]- 1273 Apr, [facility] [place] [facility] [address] [id number], [place] [address]- 2382 Apr, [facility] [place] [facility] [address] [id number] [place] [address]- 1138 Apr, [facility] [place] [facility] [address] [id number] [place] [address]- 4354 Feb, [facility] [place] [facility] [address] [facility] [id number] [place] [address]- 0506 Feb, [facility] [place] [facility] [address] [id number] [place] [address]- 2546 Jan, [facility] [address] [id number] [place] [address]- 2196 Jan, [facility] [place] [facility] [address] [id number] [place] [address]- 2546 Dec, [facility] [address] [id number] [place] [address]- 2546 Dec, [facility] [address] [id number] [place] [address] 2546 Dec, [facility] [address] [id number] [place] [address]- 2449 Nov, [facility] [address] [id number] [place] [address]- 6696 Nov, [facility] [address] [id number] [place] [address]- 4232 Nov, [facility] [address] [id number] [place] [address]- 8497 Oct, [facility] [address] [id number] [place] [address]- 4655 Oct, [facility] [address] [id number] [place] [address]- 2772 Oct, [facility] [address] [id number] [place] [address]- 3886 September, [facility] [address] [id number] [place] [address]- 9148 September, [facility] [place] [facility] [address] [id number] [place] [address]- 2546 September, [facility] [address] [id number] [place] [address]- 2546 Aug, [facility] [place] [facility] [address] [id number] [place] [address]- 1767 Aug, [facility] [address] [id number] [place] [address]- 9924 Aug, [facility] [place] [facility] [address] [id number] [place] [address]- 2786 16 Aug, 2011 [facility] [place] [facility] [address] [id number] [place] [address]- 5391 Jul, [facility] [place] [facility] [address] [id number] [place] [address]- 5769 Jun, [facility] [place] [facility] [address] [id number] [place] [address]- 5748 14 Jun, 2011 [facility] [place] [facility] [address] [id number] [place] [address]- 7142 Jun, [facility] [place] [facility] [address] [id number] [place] [address]- 9780 Jun, [facility] [place] [facility] [address] [id number] [place] [address]- 0632 Jun, [facility] [place] [facility] [address] [id number] [place] [address]- 7000 May, [facility] [place] [facility] [address] [id number] [place] [address]- 2086 May, [facility] [place] [facility] [address] [id number] [place] [address]- 3585 May, [facility] [place] [facility] [address] [id number] [place] [address]- 6309 May, [facility] [place] [facility] [address] [id number] [place] [address]- 4280 Apr, [facility] [place] [facility] [address] [id number] [place] [address]- 7914 Apr, [facility] [place] [facility] [address] [id number] [place] [address]- 0988 Apr, [facility] [place] [facility] [address] [id number] [place] [address]- 5672 Mar, [facility] [address] [id number] [place] [address]- 6354 Mar, [facility] [address] [id number] [place] [address]- 0430 Mar, [facility] [address] [id number] [place] [address]- 1639 13 Feb, 2011 [facility] [address] [id number] [place] [address]- 1709 13 Feb, 2011 [facility] [id number] [place] [address], [place] [address]- 4210 Feb, [facility] [address] [facility] [id number] [place] [address]- 0110 Nov, [facility] [address] [facility] [id number] [place] [address]- 0462 September, [facility] [address] [facility] [id number] [place] [address]- 0411 Aug, [facility] [address] [facility] [id number] [place] [address]- 9043 14 Jul, 2010 [facility] [address] [facility] [id number] [place] [address]- 2290 May, [facility] [address] [facility] [id number] [place] [address]- 1474 Apr, [facility] [address] [id number] [place] [address]- 3705 30 Apr, 2010 [facility] [address] [facility] [id number] [place] [address]- 6139 Apr, [facility] [address] [facility] [id number] [place] [address]- 6167 Apr, [facility] [address] [facility] [id number] [place] [address]- 4220 Apr, IMMUNIZATIONS No Known Immunizations SOCIAL HISTORY Never Assessed REASON FOR VISIT refill PLAN OF CARE VITAL SIGNS MEDICATIONS Medication Instructions Dosage Frequency Start Date End Date Duration Status Nexium 40 MG TAKE ONE CAPSULE BY MOUTH ONCE DAILY 30 Active RESULTS No Results PROCEDURES [...]
--- OUTSIDE RECORDS SUMMARY | 2017-11-18 07:35 | XMS REPORT ---
Author Author YVON WILLS Organization [facility] Address [address] [place] [address] Care Team Providers Care Rouge Miller Name Role Phone KYE WILLSA Unavailable PROBLEMS Type Condition ICD9-CM Code HTX40-WR Code Onset Dates Condition Status SNOMED Code Problem Back pain M54.9 Active 794598559 Problem GERD (gastroesophageal reflux disease) K21.9 Active 279248388 Problem Diabetes E11.9 Active 54374044 Problem Hypertension I10 Active 78079551 Problem Acute non-recurrent maxillary sinusitis J01.00 Active 00682406 Problem Anxiety disorder, unspecified F41.9 Active 370913541 Problem Bipolar 1 disorder, depressed, partial remission F31.75 Active 01950849 Problem Other bipolar disorder F31.89 Active 18549820 Problem Mild persistent asthma without complication J45.30 Active 611278970 Problem Panlobular emphysema J43.1 Active 9527430 Problem Moderate persistent asthma without complication J45.40 Active 383221002 Problem Irritable bowel syndrome with constipation K58.1 Active 845059703 Problem Arthritis M19.90 Active 6776005 Problem Chronic obstructive pulmonary disease, unspecified J44.9 Active 65753739 Problem Panic disorder with agoraphobia F40.01 Active 27188373 Problem Fibromyalgia M79.7 Active 98371810 Problem Migraine without aura and without status migrainosus, not intractable G43.009 Active 663387950 Problem Akathisia G25.71 Active 055327790 Problem Fibrocystic disease of right breast N60.11 Active 62067056 Problem Fibrocystic disease of left breast N60.12 Active 07095656 Problem Lumbago with sciatica, right side M54.41 Active 224272395 Problem Bipolar 1 disorder, depressed, moderate F31.32 Active 52296917 Problem Other chronic pain G89.29 Active 18149352 Problem Lumbago with sciatica, left side M54.42 Active 591100844 Problem Attention deficit hyperactivity disorder (ADHD), predominantly inattentive type F90.0 Active 21467527 Problem Bipolar I disorder with depression F31.9 Active 79218588 Problem Chronic post-traumatic stress disorder (PTSD) F43.12 Active 689580586 Problem Bipolar affective disorder, remission status unspecified F31.9 Active [id number] ALLERGIES No Information ENCOUNTERS Encounter Location Date Diagnosis [facility] [id number] [place] [address] 92704- 5578 18 Aug, 2017 [facility] [id number] [place] [address] 44094- 0205 Aug, [facility] [id number] [place] [address] 16026- 3591 Aug, [place] [id number] [place] [address] 71977- 8764 Jul, [facility] [id number] [place] [address] 44869- 0235 Jul, Mild persistent asthma without complication J45.30 [facility] [id number] [place] [address] 60192- 5356 Jul, Mild persistent asthma without complication J45.30 [facility] [id number] [place] [address] 24195- 2086 15 Jul, 2017 Bipolar affective disorder, remission status unspecified F31.9 ; Diabetes E11.9 and Irritable bowel syndrome with constipation K58.1 [facility] [id number] [place] [address] 20592- 4911 13 Jul, 2017 [facility] [id number] [place] [address] 77470- 9933 Jul, [place] [id number] [place] [address] 54550- 8488 08 Jul, 2017 Frequent headaches R51 [facility] [id number] [place] [address] 46790- 9351 07 Jul, 2017 [facility] [id number] [place] [address] 45368- 4103 Jul, [facility] [id number] [place] [address] 43622- 2337 Jul, [place] [address] 25653- 0050 Jul, Frequent headaches R51 ; Fibrocystic disease of left breast N60.12 ; Fibrocystic disease of right breast N60.11 and Diabetes E11.9 [place] [address] 77587- 2385 Jul, [place] [address] 09034- 4306 Jul, [place] [address] 01571- 8316 Jun, Exudative tonsillitis J03.90 [place] [address] 95888- 5246 Jun, [place] [id number] [place] [address] 85220- 8816 Jun, [place] [id number] [place] [address] 28072- 5280 15 Jun, 2017 Mild persistent asthma without complication J45.30 ; Chronic obstructive pulmonary disease, unspecified COPD type J44.9 and Exudative tonsillitis J03.90 [place] [id number] [place] [address] 95028- 7876 13 Jun, 2017 Encounter for immunization Z23 [place] [id number] [place] [address] 17272- 1099 Jun, [place] [address] 93647- 6311 Jun, [place] [id number] [place] [address] 35917- 6585 09 Jun, 2017 [facility] [address] [address] 06 Jun, 2017 Tonsillitis J03.90 [facility] [id number] [place] [address] 01523- 1101 05 Jun, 2017 [facility] [id number] [place] [address]- 4459 03 Jun, 2017 Acute non-recurrent maxillary sinusitis J01.00 [facility] [address] 97209- 6139 02 Jun, 2017 [facility] [address] 76706- 3668 May, [place] [address] 84107- 2242 May, [place] [address] 38613- 3440 May, GERD (gastroesophageal reflux disease) K21.9 [place] [address] 76806- 1695 May, Migraine without aura and without status migrainosus, not intractable G43.009 [place] [id number] [place] [address] 31764- 0145 May, [place] [id number] [place] [address] 36942- 5769 May, [place] [id number] [place] [address] 79254- 8385 May, Panlobular emphysema J43.1 and Acute non-recurrent maxillary sinusitis J01.00 [place] [id number] [place] [address] 15284- 8117 May, Bipolar 1 disorder, depressed, moderate F31.32 ; Panic disorder with agoraphobia F40.01 and Akathisia G25.71 [place] [id number] [place] [address] 60117- 0916 Apr, [facility] [id number] [place] [address] 80105- 3404 Apr, [facility] [address] 31148- 7823 Apr, Acute non-recurrent maxillary sinusitis J01.00 [facility] [id number] [place] [address] 79234- 9249 07 Apr, 2017 Panlobular emphysema J43.1 [facility] [id number] [place] [address] 56608- 2643 Apr, [facility] [address] 85440 -7194 04 Apr, 2017 Exudative tonsillitis J03.90 and Sore throat J02.9 [place] [address] 20297- 3176 17 Mar, 2017 [place] [address] 07686- 9333 15 Mar, 2017 Acute non-recurrent maxillary sinusitis J01.00 [place] [address] 54423- 2145 Mar, [facility] [id number] [place] [address] 09152- 1818 Mar, Panlobular emphysema J43.1 and Diabetes E11.9 [place] [id number] [place] [address] 59551- 3234 Mar, [facility] [id number] [place] [address] 62677 -4636 Feb, Wheezing R06.2 and Acute recurrent pansinusitis J01.41 [facility] [id number] [place] [address] 41106- 2977 Feb, [facility] [id number] [place] [address] 94456- 9543 16 Feb, 2017 Acute non-recurrent maxillary sinusitis J01.00 [facility] [id number] [place] [address] 37102- 9533 16 Feb, 2017 Chronic obstructive pulmonary disease, unspecified J44.9 [facility] [id number] [place], [place] [address] 254 02 Feb, 2017 Hypoxemia R09.02 and Chronic obstructive pulmonary disease, unspecified J44.9 [facility] [address] 371612- 9912 28 Jan, 2017 Bipolar 1 disorder, depressed, moderate F31.32 ; Panic disorder with agoraphobia F40.01 ; Chronic post-traumatic stress disorder (PTSD ) F43.12 ; Diabetes E11.9 and Moderate persistent asthma without complication J45.40 [facility] [id number] [place] [address] 375536- 1251 22 Jan, 2017 [place] [address] 371613- 0832 19 Jan, 2017 Acute non-recurrent maxillary sinusitis J01.00 [facility] [id number] [place] [address] 61493- 8058 18 Jan, 2017 [facility] [id number] [place] [address] 76875 2544 18 Jan, 2017 [facility] [id number] [place] [address] 40505 2544 Jan, Moderate persistent asthma without complication J45.40 and Hypoxemia R09.02 [facility] [id number] [place] [address] 80514 2546 11 Jan, 2017 Moderate persistent asthma without complication J45.40 and Hypoxemia R09.02 [facility] [address] 61805 2546 11 Jan, 2017 [facility] [id number] [place] [address] 14030- 8672 Dec, Acute non-recurrent maxillary sinusitis J01.00 [facility] [id number] [place] [address] 11494- 1659 Dec, Chronic obstructive pulmonary disease, unspecified J44.9 [facility] [id number] [place] [address] 47846- 5415 Dec, [facility] [id number] [place] [address] 50455- 0582 Dec, Mild persistent asthma without complication J45.30 and Other chronic pain G89.29 [facility] [id number] [place] [address] 38771- 6161 Nov, [facility] [id number] [place] [address] 25421- 9550 Nov, Acute non-recurrent maxillary sinusitis J01.00 [place] [id number] [place] [address] 94676- 9135 Nov, [facility] [id number] [place] [address] 72023- 1224 Nov, [facility] [id number] [place] [address] 54586- 1709 Oct, [facility] [id number] [place] [address] 67302- 2293 Oct, Bipolar 1 disorder, depressed, partial remission F31.75 ; Panic disorder with agoraphobia F40.01 and Chronic post-traumatic stress disorder (PTSD) F43.12 [facility] [id number] [place] [address] 58055- 4571 Oct, Acute non-recurrent maxillary sinusitis J01.00 [facility] [id number] [place] [address] 77528- 6507 Oct, [facility] [id number] [place] [address] 42248- 5473 Oct, Diabetes E11.9 [facility] [id number] [place] [address] 39858- 6604 September, Diabetes E11.9 [facility] [id number] [place] [address] 16026- 2432 September, Diabetes E11.9 and Sinus tachycardia R00.0 [facility] [id number] [place] [address] 18374- 3025 September, [facility] [id number] [place] [address] 40106- 1187 September, [facility] [id number] [place] [address] 29029- 2505 Aug, Diabetes E11.9 and Lumbago with sciatica, right side M54.41 [place] [id number] [place] [address] 37429- 8891 Aug, [place] [id number] [place] [address] 96527- 6096 Jul, Bipolar 1 disorder, depressed, moderate F31.32 ; Panic disorder with agoraphobia F40.01 and Chronic post-traumatic stress disorder ( PTSD) F43.12 [place] [id number] [place] [address] 19176- 1916 Jul, Sore throat J02.9 [facility] [id number] [place] [address] 82999- 2562 Jul, [place] [id number] [place] [address] 23266- 3269 Jul, [facility] [id number] [place] [address] 87637- 1407 Jul, [facility] [id number] [place] [address] 43661- 6899 Jul, [facility] [id number] [place] [address] 81409- 4860 Jul, Sore throat J02.9 and Pharyngitis, unspecified etiology J02.9 [facility] [id number] [place] [address] 10515- 6989 Jun, [facility] [address] [facility] [id number] [address]- 1811 Jun, Diabetes E11.9 [facility] [id number] [address]- 2526 Jun, [facility] [address] [address]- 7636 Jun, [facility] [address] [facility] [id number] [address]- 1377 Jun, [facility] [address] [facility] [id number] [address]- 3792 Jun, [facility] [id number] [address]- 1206 Jun, [facility] [address] [address]- 3682 Jun, [facility] [address] [address]- 4487 Jun, [facility] [address] [address]- 6312 Jun, [facility] [address] [address]- 8923 May, Diabetes E11.9 ; Other chronic pain G89.29 ; Acute recurrent maxillary sinusitis J01.01 ; Bipolar I disorder with depression F31.9 and Anxiety disorder, unspecified F41.9 [facility] [address] [facility] [id number] [address]- 7221 May, [facility] [address] [address]- 3146 May, Diabetes E11.9 ; Bipolar I disorder with depression F31.9 ; Anxiety disorder, unspecified F41.9 ; Other chronic pain G89.29 and Acute recurrent maxillary sinusitis J01.01 [facility] [address] [address]- 8812 May, [place] [id number] [place] [address] 75855- 8668 May, Attention deficit hyperactivity disorder (ADHD), predominantly inattentive type F90.0 [place] [id number] [place] [address] 95008- 4350 May, [place] [id number] [place] [address] 46518- 0141 Apr, Attention deficit hyperactivity disorder (ADHD), predominantly inattentive type F90.0 and Non-seasonal allergic rhinitis due to other allergic trigger J30.89 [place] [id number] [place] [address] 16556- 6556 Apr, Bipolar 1 disorder, depressed, moderate F31.32 ; Panic disorder with agoraphobia F40.01 and Chronic post-traumatic stress disorder ( PTSD) F43.12 [place] [id number] [place] [address] 61226- 3986 Apr, Dental examination Z01.20 [place] [id number] [place] [address] 95695- 4044 Mar, [place] [id number] [place] [address] 38364- 5183 Mar, [place] [id number] [place] [address] 67382- 8462 Mar, Bipolar I disorder with depression F31.9 and Anxiety disorder, unspecified F41.9 [place] [id number] [place] [address] 74672- 4328 08 Mar, 2016 Panic disorder with agoraphobia F40.01 ; Bipolar 1 disorder , depressed, moderate F31.32 and Chronic post-traumatic stress disorder (PTSD) F43.12 [place] [address] [address]- 1241 Mar, [place] [id number] [place] [address] 76408- 2955 Mar, Dental caries K02.9 [place] [address] 78613- 6972 Feb, Lumbago with sciatica, left side M54.42 ; Lumbago with sciatica, right side M54.41 and Other chronic pain G89.29 [place] [address] 31893- 8541 17 Feb, 2016 [place] [address] 34656- 2103 14 Feb, 2016 [place] [address] 68249- 4145 Feb, Bipolar I disorder with depression F31.9 ; PTSD (post- traumatic stress disorder) F43.10 and Mood disorder F39 [place] [address] 33295- 3387 Feb, [place] [address] 14943- 8397 Feb, Dental examination Z01.20 [place] [id number] [place] [address] 80874- 6660 07 Feb, 2016 [facility] [id number] [place] [address] 37121 -3909 Feb, Acute bronchitis, unspecified organism J20.9 [place] [id number] [place] [address] 80656- 5442 26 Jan, 2016 Mood disorder F39 ; Migraine without aura and without status migrainosus, not intractable G43.009 ; Irritable bowel syndrome, unspecified type K58.9 ; Diabetes E11.9 and Encounter for immunization Z23 [place] [id number] [place] [address] 12689- 8939 15 Jan, 2016 [place] [address] 83375- 5807 Jan, [facility] [id number] [place] [address] 92508- 0667 Jan, [facility] [id number] [place] [address] 27691- 3330 Jan, [facility] [id number] [place] [address] 44569- 8390 Jan, [facility] [id number] [place] [address] 53789- 6550 Dec, Bipolar I disorder with depression F31.9 ; PTSD (post- traumatic stress disorder) F43.10 and Panic disorder with agoraphobia F40.01 [facility] [id number] [place] [address] 11128- 8141 Dec, Chronic obstructive pulmonary disease, unspecified COPD type J44.9 ; Tremor R25.1 and Anxiety F41.9 [facility] [id number] [place] [address] 36139- 3009 Dec, [facility] [id number] [place] [address] 68674- 5290 Nov, Tremors of nervous system R25.1 and Cramping of feet R25.2 [facility] [id number] [place] [address] 31396- 2246 Nov, [facility] [id number] [place] [address] 12240- 4676 Nov, [facility] [id number] [place] [address] 06285- 9328 Oct, Chronic obstructive pulmonary disease, unspecified J44.9 [facility] [id number] [place] [address] 63324- 2508 Oct, [facility] [id number] [place] [address] 71532- 3224 Oct, Tremor R25.1 [facility] [id number] [place] [address] 96138- 5873 Oct, Bipolar I disorder with depression F31.9 ; Diabetes E11.9 ; PTSD (post-traumatic stress disorder) F43.10 and Panic disorder with agoraphobia F40.01 [place] [id number] [place] [id number] [place] [address] 32067- [phone] 16 Oct, 2015 Mood disorder F39 [place] [address] [place] [id number] [place] [address] 34927- 8033 September, [place] [address] [place] [id number] [place] [address] 53609- 4958 September, Diabetes E11.9 ; Bipolar I disorder with depression F31.9 ; PTSD (post-traumatic stress disorder) F43.10 and Panic disorder with agoraphobia F40.01 [place] [address] [place] [id number] [place] [address] 63766- 7638 September, Mood disorder F39 ; Schizoaffective disorder, unspecified type F25.9 ; Arthritis M19.90 ; Tremor R25.1 ; Acute non-recurrent frontal sinusitis J01.10 and Blood in stool K92.1 [place] [address] [place] [id number] [place] [address] 34475- 5178 September, [place] [address] [place] [id number] [place] [address] 59204- 8672 September, Chronic obstructive pulmonary disease, unspecified J44.9 [place] [address] [place] [id number] [place] [address] 89861- 1597 September, Diabetes E11.9 [place] [address] [place] [id number] [place] [address] 88765- 4593 Aug, Other bipolar disorder F31.89 and Anxiety disorder, unspecified F41.9 [place] [address] [place] [id number] [place] [address] 54312- 2869 Aug, [place] [address] [place] [id number] [place] [address] 11432- 5361 Aug, Diabetes E11.9 [facility] [id number] [address] Aug, [facility] [address] [place] [id number] [place] [address] 54569- 9598 14 Aug, 2015 Diabetes E11.9 ; Fatigue R53.83 and Dizziness R42 [facility] [address] [id number] [place] [address] 81183- 4406 Aug, Other bipolar disorder F31.89 [facility] [address] [id number] [place] [address] 76300- 5468 Aug, Generalized anxiety disorder F41.1 [facility] [address] [id number] [place] [address] 89276- 6297 Aug, Other bipolar disorder F31.89 and Anxiety disorder, unspecified F41.9 [facility] [address] [id number] [place] [address] 61358- 1550 Aug, [facility] [id number] [place] [address] 97697- [phone] 29 Jul, 2015 [facility] [address] [place] [place] [id number] [place] [place] [address] 17943- 9563 24 Jul, 2015 [facility] [id number] [place] [address] 31665- 9967 Jul, Bronchitis J40 [facility] [id number] [place] [address] 77135- 6046 Jul, Anxiety disorder F41.9 [facility] [id number] [place] [address] 24230 2547 Jul, Other bipolar disorder F31.89 and Anxiety disorder, unspecified F41.9 [facility] [id number] [place] [address] 91589- 0047 18 Jul, 2015 Other bipolar disorder F31.89 and Fibromyalgia M79.7 [facility] [id number] [place] [address] 97482- 0500 Jul, [facility] [id number] [place] [address] 86450- 9161 Jul, [facility] [id number] [place] [address] 13220- 9384 Jul, [facility] [id number] [place] [address] 96715- 7279 Jul, Other bipolar disorder F31.89 and Anxiety disorder, unspecified F41.9 [facility] [id number] [place] [address] 61057- 1560 Jun, GERD (gastroesophageal reflux disease) K21.9 [facility] [id number] [place] [address] 02064- 8445 Jun, [facility] [id number] [place] [address] 15774- 7744 May, [facility] [address] 42403- 7028 May, Diabetes E11.9 ; Back pain M54.9 ; GERD (gastroesophageal reflux disease) K21.9 ; Hypertension I10 and Peripheral neuropathy G62.9 [facility] [id number] [place] [address] 42745- 4318 Mar, [facility] [id number] [place] [address] 89928- 4878 Mar, [facility] [id number] [place] [address] 34728- 0304 Mar, Acute sinusitis J01.90 and Otitis media, left H66.92 [facility] [id number] [place] [address] 57222- 4707 Feb, [facility] [id number] [place] [address] 41616- 1869 Feb, [facility] [id number] [place] [address] 00593- 4757 Feb, [facility] [id number] [address] 2303 Feb, [facility] [id number] [place] [address] 07977- 6137 Jan, [facility] [id number] [place] [address] 26543- 0156 Jan, Diabetes 250.00 and Back pain 724.5 [facility] [id number] [place] [address] 49488- 0789 Jan, [facility] [id number] [place] [address] 24089- 8751 Dec, Diabetes 250.00 ; Benign essential hypertension 401.1 and Allergic rhinitis 477.9 [facility] [id number] [place] [address] 13672- 3729 Dec, [facility] [id number] [place] [address] 00185- 1453 Dec, [facility] [id number] [place] [address] 51004- 2049 Dec, Psychosis 298.9 [facility] [id number] [place] [address] 23449- 2099 Dec, Medication side effect 995.20 and Generalized anxiety disorder 300.02 [facility] [id number] [place] [address] 51684- 0401 Dec, Acquired cognitive dysfunction 294.9 [facility] [id number] [place] [address] 46537- 1676 Dec, [facility] [id number] [place] [address] 25549- 8597 Dec, Unspecified myalgia and myositis 729.1 and Generalized anxiety disorder 300.02 [facility] [id number] [place] [address] 82647- 2034 Nov, [facility] [address] [place] [address]- 2324 Nov, [facility] [id number] [place] [address] 61500- 7002 Nov, [facility] [id number] [place] [address] 95539- 3546 Nov, Upper respiratory infection 465.9 and Chronic airway obstruction, not elsewhere classified 496 [facility] [id number] [place] [address] 15522- 9465 Nov, Hyponatremia 276.1 [facility] [id number] [place] [address] 63763- 9636 Oct, [facility] [id number] [place] [address] 68521- 0600 Oct, [facility] [id number] [place] [address] 47372- 2331 Oct, [facility] [id number] [place] [address] 05335- 2839 Oct, [facility] [id number] [place] [address] 61018- 1882 Oct, Hyponatremia 276.1 [facility] [id number] [place] [address] 82813- 3750 Oct, [facility] [address] [address]- 4590 Oct, [facility] [address] [address]- 6790 Oct, Generalized anxiety disorder 300.02 [facility] [id number] [place] [address] 64235- 3685 Oct, Generalized anxiety disorder 300.02 and Diabetes 250.00 [facility] [address] [address]- 2903 14 Aug, 2014 [facility] [id number] [place] [address] 43080- 7463 Aug, [facility] [address] [id number] [place] [address]- 2080 Jul, [facility] [address] [id number] [place] [address]- 2336 Jul, [facility] [address] [facility] [id number] [place] [address]- 4786 Jun, [facility] [place] [facility] [address] [id number] [place] [address]- 7226 Jun, [facility] [address] [id number] [place] [address]- 1484 Jun, [facility] [address] [facility] [id number] [place] [address]- 6325 Jun, [facility] [address] [facility] [id number] [place] [address]- 9653 Jun, [facility] [address] [facility] [id number] [place] [address]- 2440 May, [facility] [address] [facility] [id number] [place] [address]- 6919 May, [facility] [address] [facility] [id number] [place] [address]- 4358 Apr, [facility] [address] [facility] [id number] [place] [address]- 3070 Apr, [facility] [place] [facility] [address] [facility] [id number] [place] [address]- 1439 18 Apr, 2013 [facility] [place] [facility] [address] [id number] [place] [address]- 6389 18 Apr, 2013 [facility] [place] [facility] [address] [facility] [id number] [place] 2381 17 Apr, 2013 [facility] [place] [facility] [address] [facility] [id number] [place] [address]- 9038 17 Apr, 2013 [facility] [place] [facility] [address] [id number] [place] [address]- 2548 Apr, [facility] [place] [facility] [address] [id number] [place] [address]- 6226 Apr, [facility] [place] [facility] [address] [id number] [place] [address] 2546 Feb, [facility] [place] [facility] [address] [id number] [place] [address]- 4918 Feb, [facility] [place] [facility] [address] [id number] [place] [address]- 8976 Jan, [facility] [place] [facility] [address] [id number] [place] [address]- 9349 Jan, [facility] [place] [facility] [address] [id number] [place] [address]- 4101 Dec, [facility] [place] [facility] [address] [id number] [place] [address]- 1479 Dec, [facility] [place] [facility] [address] [id number] [place] [address]- 8057 Dec, [facility] [place] [facility] [address] [id number] [place] [address]- 5960 Nov, [facility] [place] [facility] [address] [id number] [place] [address]- 8312 Nov, [facility] [place] [facility] [address] [id number] [place] [address]- 1500 Nov, [facility] [place] [facility] [address] [id number] [place] [address]- 9894 Oct, [facility] [place] [facility] [address] [id number] [place] [address]- 9350 Oct, [facility] [place] [facility] [address] [id number] [place] [address]- 2546 Oct, [facility] [place] [facility] [address] [id number] [place] [address]- 0985 September, [facility] [address] [id number] [place] [address]- 1395 September, [facility] [place] [facility] [address] [id number] [place] [address]- 9472 September, [facility] [place] [facility] [address] [id number] [place] [address]- 5912 Aug, [facility] [place] [facility] [address] [id number] [place] [address]- 0708 Aug, [facility] [place] [facility] [address] [id number] [place] [address]- 7372 Aug, [facility] [place] [facility] [address] [id number] [place] [address]- 9969 16 Aug, 2011 [facility] [place] [facility] [address] [id number] [place] [address]- 3562 Jul, [facility] [place] [facility] [address] [id number] [place] [address]- 2055 Jun, [facility] [place] [facility] [address] [id number] [place] [address]- 5560 14 Jun, 2011 [facility] [place] [facility] [address] [id number] [place] [address]- 4224 Jun, [facility] [place] [facility] [address] [id number] [place] [address]- 7372 Jun, [facility] [place] [facility] [address] [id number] [place] [address]- 9780 Jun, [facility] [place] [facility] [address] [id number] [place] [address]- 0603 May, [facility] [place] [facility] [address] [id number] [place] [address]- 8512 May, [facility] [place] [facility] [address] [id number] [place] [address]- 4006 May, [facility] [place] [facility] [address] [id number] [place] [address]- 1687 04 May, 2011 [facility] [address] [id number] [place] [address]- 5148 Apr, [facility] [place] [facility] [address] [id number] [place] [address]- 7319 Apr, [facility] [address] [id number] [place] [address]- 9310 Apr, [facility] [place] [facility] [address] [id number] [place] [address]- 2141 Mar, [facility] [address] [id number] [place] [address]- 4348 Mar, [facility] [place] [facility] [address] [id number] [place] [address]- 8463 Mar, [facility] [address] [id number] [place] [address]- 3755 Feb, [facility] [address] [id number] [place] [address]- 7176 Feb, [facility] [place] [facility] [address] [id number] [place] [address]- 5073 Feb, [facility] [address] [id number] [place] [address]- 7708 Nov, [facility] [place] [facility] [address] [id number] [place] [address]- 6794 September, [facility] [place] [facility] [address] [id number] [place] [address]- 0437 Aug, [facility] [place] [facility] [address] [id number] [place] [address]- 0710 14 Jul, 2010 [facility] [place] [facility] [address] [id number] [place] [address] 2546 May, [facility] [place] [facility] [address] [id number] [place] [address]- 1223 Apr, [facility] [address] [facility] [id number] [address]- 4256 Apr, [facility] [id number] [address]- 5678 Apr, [facility] [address] [facility] [id number] [address]- 5896 Apr, [facility] [address] [id number] [address]- 8475 Apr, IMMUNIZATIONS No Known Immunizations SOCIAL HISTORY Never Assessed REASON FOR VISIT med refill PLAN OF CARE VITAL SIGNS MEDICATIONS Unknown [...]
--- OUTSIDE RECORDS SUMMARY | 2017-11-18 07:36 | XMS REPORT ---
Author Author WHIT GANDHI [facility] [address] Address [address] [place] [address] Care Team Providers Care School Lunch Manager Name Role Phone WHIT GANDHI Unavailable PROBLEMS Type Condition ICD9-CM Code ASX68-[place] Code Onset Dates Condition Status SNOMED Code Problem Back pain M54.9 Active 389110687 Problem GERD (gastroesophageal reflux disease) K21.9 Active 193053812 Problem Diabetes E11.9 Active 55585595 Problem Hypertension I10 Active 90315432 Problem Acute non-recurrent maxillary sinusitis J01.00 Active 72613664 Problem Anxiety disorder, unspecified F41.9 Active 437752058 Problem Bipolar 1 disorder, depressed, partial remission F31.75 Active 32547448 Problem Other bipolar disorder F31.89 Active 78293552 Problem Mild persistent asthma without complication J45.30 Active 496114318 Problem Panlobular emphysema J43.1 Active 8358751 Problem Moderate persistent asthma without complication J45.40 Active 091372847 Problem Irritable bowel syndrome with constipation K58.1 Active 600357012 Problem Arthritis M19.90 Active 0121806 Problem Chronic obstructive pulmonary disease, unspecified J44.9 Active 98011098 Problem Panic disorder with agoraphobia F40.01 Active 00166147 Problem Fibromyalgia M79.7 Active 51700835 Problem Migraine without aura and without status migrainosus, not intractable G43.009 Active 440599497 Problem Akathisia G25.71 Active 526265295 Problem Fibrocystic disease of right breast N60.11 Active 99706062 Problem Fibrocystic disease of left breast N60.12 Active 96757876 Problem Lumbago with sciatica, right side M54.41 Active 454518909 Problem Bipolar 1 disorder, depressed, moderate F31.32 Active 92617505 Problem Other chronic pain G89.29 Active 93397671 Problem Lumbago with sciatica, left side M54.42 Active 246004554 Problem Attention deficit hyperactivity disorder (ADHD), predominantly inattentive type F90.0 Active 43226048 Problem Bipolar I disorder with depression F31.9 Active 62646328 Problem Chronic post-traumatic stress disorder (PTSD) F43.12 Active 144577985 Problem Bipolar affective disorder, remission status unspecified F31.9 Active 88530031 ALLERGIES No Information ENCOUNTERS Encounter Location Date Diagnosis [facility] [id number] [place] [address] 25717- 8797 18 Aug, 2017 [facility] [address] 88858- 1007 Aug, [facility] [id number] [place] [address] 07513- 3386 Aug, [place] [address] 31567- 9753 Jul, [place] [address] 90059- 6804 Jul, Mild persistent asthma without complication J45.30 [place] [id number] [place] [address] 25751- 5956 19 Jul, 2017 Mild persistent asthma without complication J45.30 [place] [id number] [place] [address] 38576- 2324 15 Jul, 2017 Bipolar affective disorder, remission status unspecified F31.9 ; Diabetes E11.9 and Irritable bowel syndrome with constipation K58.1 [place] [id number] [place] [address] 45045- 1907 Jul, [facility] [id number] [place] [address] 63879- 9281 Jul, [place] [id number] [place] [address] 22079- 7358 Jul, Frequent headaches R51 [facility] [id number] [place] [address] 71390- 0852 07 Jul, 2017 [place] [address] 03704- 5297 Jul, [place] [id number] [place] [address] 96622- 4196 Jul, [place] [address] 83897- 4242 Jul, Frequent headaches R51 ; Fibrocystic disease of left breast N60.12 ; Fibrocystic disease of right breast N60.11 and Diabetes E11.9 [place] [id number] [place] [address] 08047- 3519 Jul, [place] [id number] [place] [address] 61004- 1776 Jul, [place] [address] 03768- 9359 Jun, Exudative tonsillitis J03.90 [place] [address] 74376- 7080 Jun, [place] [id number] [place] [address] 25958- 6067 Jun, [place] [id number] [place] [address] 90413- 9970 15 Jun, 2017 Mild persistent asthma without complication J45.30 ; Chronic obstructive pulmonary disease, unspecified COPD type J44.9 and Exudative tonsillitis J03.90 [place] [id number] [place] [address] 34986- 4901 13 Jun, 2017 Encounter for immunization Z23 [place] [id number] [place] [address] 47383- 1231 Jun, [place] [address] 79995- 6458 Jun, [place] [id number] [place] [address] 85816- 7632 Jun, [facility] [id number] [place] [address] 96287 -0121 06 Jun, 2017 Tonsillitis J03.90 [place] [address] 15553- 1025 05 Jun, 2017 [place] [address] 655605- 8460 Jun, Acute non-recurrent maxillary sinusitis J01.00 [place] [address] 95222- 9227 Jun, [place] [address] 76762- 0811 May, [place] [address] 90337- 2176 May, [place] [address] 65194- 5638 May, GERD (gastroesophageal reflux disease) K21.9 [place] [address] 80774- 1453 May, Migraine without aura and without status migrainosus, not intractable G43.009 [place] [address] 16235- 1346 May, [place] [address] 72496- 4752 May, [place] [address] 73549- 6884 May, Panlobular emphysema J43.1 and Acute non-recurrent maxillary sinusitis J01.00 [place] [address] 08495- 3698 May, Bipolar 1 disorder, depressed, moderate F31.32 ; Panic disorder with agoraphobia F40.01 and Akathisia G25.71 [place] [address] 87615- 8480 Apr, [place] [id number] [place] [address] 91226- 0589 14 Apr, 2017 [facility] [address] 45166- 4189 Apr, Acute non-recurrent maxillary sinusitis J01.00 [facility] [id number] [place] [address] 89536- 6417 07 Apr, 2017 Panlobular emphysema J43.1 [facility] [address] 59619- 3739 04 Apr, 2017 [facility] [address] 58741 -3046 04 Apr, 2017 Exudative tonsillitis J03.90 and Sore throat J02.9 [facility] [address] 74482- 4114 17 Mar, 2017 [facility] [address] 70680- 3421 15 Mar, 2017 Acute non-recurrent maxillary sinusitis J01.00 [place] [address] 25805- 4804 Mar, [facility] [id number] [place] [address] 88443- 4335 Mar, Panlobular emphysema J43.1 and Diabetes E11.9 [facility] [id number] [place] [address] 18482- 5346 Mar, [facility] [id number] [place] [address] 43912 -5992 Feb, Wheezing R06.2 and Acute recurrent pansinusitis J01.41 [facility] [id number] [place] [address] 87234- 9867 Feb, [facility] [id number] [place] [address] 08709- 3598 Feb, Acute non-recurrent maxillary sinusitis J01.00 [facility] [id number] [place] [address] 412358- 1866 16 Feb, 2017 Chronic obstructive pulmonary disease, unspecified J44.9 [facility] [address] 254 02 Feb, 2017 Hypoxemia R09.02 and Chronic obstructive pulmonary disease, unspecified J44.9 [facility] [address] [place] [address]- 5336 28 Jan, 2017 Bipolar 1 disorder, depressed, moderate F31.32 ; Panic disorder with agoraphobia F40.01 ; Chronic post-traumatic stress disorder (PTSD ) F43.12 ; Diabetes E11.9 and Moderate persistent asthma without complication J45.40 [facility] [address]- 2547 22 Jan, 2017 [facility] [address] 655607- 2460 19 Jan, 2017 Acute non-recurrent maxillary sinusitis J01.00 [facility] [address] 14678- 7130 18 Jan, 2017 [facility] [address] 95650 2543 18 Jan, 2017 [facility] [address] 08935 2541 Jan, Moderate persistent asthma without complication J45.40 and Hypoxemia R09.02 [facility] [address] 32893 2546 11 Jan, 2017 Moderate persistent asthma without complication J45.40 and Hypoxemia R09.02 [facility] [address] 83528 2546 Jan, [facility] [address] 66946- 2548 Dec, Acute non-recurrent maxillary sinusitis J01.00 [facility] [address] [place] [address]- 5672 Dec, Chronic obstructive pulmonary disease, unspecified J44.9 [facility] [id number] [place] [address] 46376- 4759 Dec, [facility] [id number] [place] [address] 11174- 7594 Dec, Mild persistent asthma without complication J45.30 and Other chronic pain G89.29 [facility] [id number] [place] [address] 64304- 8964 Nov, [facility] [id number] [place] [address] 58228- 8743 Nov, Acute non-recurrent maxillary sinusitis J01.00 [facility] [id number] [place] [address] 92795- 0643 Nov, [facility] [id number] [place] [address] 82394- 3869 Nov, [facility] [id number] [place] [address] 60567- 0420 Oct, [facility] [id number] [place] [address] 13021- 6142 Oct, Bipolar 1 disorder, depressed, partial remission F31.75 ; Panic disorder with agoraphobia F40.01 and Chronic post-traumatic stress disorder (PTSD) F43.12 [facility] [id number] [place] [address] 93449- 9495 Oct, Acute non-recurrent maxillary sinusitis J01.00 [facility] [id number] [place] [address] 63935- 3794 Oct, [facility] [id number] [place] [address] 20448- 2798 Oct, Diabetes E11.9 [facility] [id number] [place] [address] 85315- 0989 September, Diabetes E11.9 [facility] [address] [place] [address] 95949- 2448 September, Diabetes E11.9 and Sinus tachycardia R00.0 [facility] [id number] [place] [address] 34295- 7302 September, [facility] [id number] [place] [address] 99525- 7185 September, [facility] [id number] [place] [address] 06688- 3015 Aug, Diabetes E11.9 and Lumbago with sciatica, right side M54.41 [facility] [id number] [place] [address] 12092- 2800 Aug, [facility] [id number] [place] [address] 43549- 8248 Jul, Bipolar 1 disorder, depressed, moderate F31.32 ; Panic disorder with agoraphobia F40.01 and Chronic post-traumatic stress disorder ( PTSD) F43.12 [facility] [id number] [place] [address] 82886- 6387 Jul, Sore throat J02.9 [facility] [id number] [place] [address] 47254- 9017 Jul, [facility] [id number] [place] [address] 54182- 7596 Jul, [facility] [id number] [place] [address] 56057- 2514 Jul, [facility] [id number] [place] [address] 36392- 1539 Jul, [facility] [id number] [place] [address] 66017- 3591 Jul, Sore throat J02.9 and Pharyngitis, unspecified etiology J02.9 [facility] [id number] [place] [address] 17920- 8398 Jun, [facility] [address] [place] [address]- 6766 Jun, Diabetes E11.9 [facility] [address] [place] [address]- 0015 Jun, [facility] [address] [place] [address]- 7686 Jun, [facility] [address] [place] [address]- 0420 Jun, [facility] [address] [place] [address] 54507- 7242 Jun, [facility] [address] [place] [address]- 7744 Jun, [facility] [address] [place] [address]- 7801 Jun, [facility] [address] [place] [address]- 5100 Jun, [facility] [address] [place] [address]- 7138 Jun, [facility] [address] [place] [address]- 0944 May, Diabetes E11.9 ; Other chronic pain G89.29 ; Acute recurrent maxillary sinusitis J01.01 ; Bipolar I disorder with depression F31.9 and Anxiety disorder, unspecified F41.9 [facility] [address] [place] [address]- 6039 May, [facility] [address] [place] [address]- 6939 May, Diabetes E11.9 ; Bipolar I disorder with depression F31.9 ; Anxiety disorder, unspecified F41.9 ; Other chronic pain G89.29 and Acute recurrent maxillary sinusitis J01.01 [facility] [id number] [place] [address] 15861- 4170 May, [facility] [id number] [place] [address] 21613- 8012 May, Attention deficit hyperactivity disorder (ADHD), predominantly inattentive type F90.0 [place] [id number] [place] [address] 14818- 4705 May, [place] [id number] [place] [address] 81895- 3971 Apr, Attention deficit hyperactivity disorder (ADHD), predominantly inattentive type F90.0 and Non-seasonal allergic rhinitis due to other allergic trigger J30.89 [place] [id number] [place] [address] 96942- 9513 Apr, Bipolar 1 disorder, depressed, moderate F31.32 ; Panic disorder with agoraphobia F40.01 and Chronic post-traumatic stress disorder ( PTSD) F43.12 [place] [id number] [place] [address] 40086- 6372 Apr, Dental examination Z01.20 [place] [id number] [place] [address] 20752- 0299 Mar, [place] [id number] [place] [address] 36370- 4908 Mar, [place] [address] [place] [address] 84112- 8937 Mar, Bipolar I disorder with depression F31.9 and Anxiety disorder, unspecified F41.9 [place] [address] [place] [address] 03596- 4835 08 Mar, 2016 Panic disorder with agoraphobia F40.01 ; Bipolar 1 disorder , depressed, moderate F31.32 and Chronic post-traumatic stress disorder (PTSD) F43.12 [place] [address] [place] [address] 33357- 3359 Mar, [place] [address] 78127- 2458 Mar, Dental caries K02.9 [place] [address] 14641- 1342 Feb, Lumbago with sciatica, left side M54.42 ; Lumbago with sciatica, right side M54.41 and Other chronic pain G89.29 [place] [address] 07726- 2155 Feb, [place] [address] 66745- 5120 14 Feb, 2016 [place] [address] 31590- 5061 Feb, Bipolar I disorder with depression F31.9 ; PTSD (post- traumatic stress disorder) F43.10 and Mood disorder F39 [place] [address] 70606- 0227 Feb, [place] [address] 63043- 2641 Feb, Dental examination Z01.20 [place] [address] 25168- 2324 07 Feb, 2016 [facility] [address] 67024 -9369 Feb, Acute bronchitis, unspecified organism J20.9 [place] [address] 68006- 0496 26 Jan, 2016 Mood disorder F39 ; Migraine without aura and without status migrainosus, not intractable G43.009 ; Irritable bowel syndrome, unspecified type K58.9 ; Diabetes E11.9 and Encounter for immunization Z23 [place] [address] 10728- 1804 15 Jan, 2016 [place] [address] 88754- 6970 Jan, [facility] [address] [place] [address]- 2929 Jan, [facility] [id number] [place] [address] 07262- 2467 Jan, [facility] [id number] [place] [address] 79564- 7997 Jan, [facility] [id number] [place] [address] 83532- 7857 Dec, Bipolar I disorder with depression F31.9 ; PTSD (post- traumatic stress disorder) F43.10 and Panic disorder with agoraphobia F40.01 [facility] [id number] [place] [address] 37618- 1647 Dec, Chronic obstructive pulmonary disease, unspecified COPD type J44.9 ; Tremor R25.1 and Anxiety F41.9 [facility] [id number] [place] [address] 20620- 1914 Dec, [facility] [id number] [place] [address] 06987- 1399 Nov, Tremors of nervous system R25.1 and Cramping of feet R25.2 [facility] [address] [place] [address] 15037- 2715 Nov, [facility] [id number] [place] [address] 30844- 0913 Nov, [facility] [id number] [place] [address] 53482- 1105 Oct, Chronic obstructive pulmonary disease, unspecified J44.9 [facility] [id number] [place] [address] 87007- 6184 Oct, [facility] [address] [place] [address] 69279- 1831 Oct, Tremor R25.1 [facility] [id number] [place] [address] 54906- 0952 Oct, Bipolar I disorder with depression F31.9 ; Diabetes E11.9 ; PTSD (post-traumatic stress disorder) F43.10 and Panic disorder with agoraphobia F40.01 [facility] [address], [place] [address]- 0655 Oct, Mood disorder F39 [place] [id number] [place] [address] 12028- 6920 September, [place] [id number] [place] [address] 11290- 2196 September, Diabetes E11.9 ; Bipolar I disorder with depression F31.9 ; PTSD (post-traumatic stress disorder) F43.10 and Panic disorder with agoraphobia F40.01 [place] [id number] [place] [address] 17638- 6396 September, Mood disorder F39 ; Schizoaffective disorder, unspecified type F25.9 ; Arthritis M19.90 ; Tremor R25.1 ; Acute non-recurrent frontal sinusitis J01.10 and Blood in stool K92.1 [place] [id number] [place] [address] 71906- 2999 September, [place] [id number] [place] [address] 99631- 4528 September, Chronic obstructive pulmonary disease, unspecified J44.9 [place] [id number] [place] [address] 72691- 4909 September, Diabetes E11.9 [place] [address] [place] [address] 06313- 4287 Aug, Other bipolar disorder F31.89 and Anxiety disorder, unspecified F41.9 [facility] [id number] [place] [address] 11490- 2725 Aug, [place] [id number] [place] [address] 12930- 0620 Aug, Diabetes E11.9 [facility] [id number] [place] [address] 72537- 6630 18 Aug, 2015 [facility] [id number] [place] [address] 74305- 9276 14 Aug, 2015 Diabetes E11.9 ; Fatigue R53.83 and Dizziness R42 [facility] [id number] [place] [address] 65611- 6226 13 Aug, 2015 Other bipolar disorder F31.89 [facility] [id number] [place] [address] 16923- 5596 07 Aug, 2015 Generalized anxiety disorder F41.1 [place] [id number] [place] [address] 46588- 1893 07 Aug, 2015 Other bipolar disorder F31.89 and Anxiety disorder, unspecified F41.9 [place] [id number] [place] [address] 19010- 8531 Aug, [facility] [id number] [place] [address] 33131- 6044 29 Jul, 2015 [facility] [id number] [place] [address] 42185- 1598 24 Jul, 2015 [facility] [id number] [place] [address] 63415- 1543 23 Jul, 2015 Bronchitis J40 [facility] [id number] [place] [address] 48513- 4264 Jul, Anxiety disorder F41.9 [facility] [id number] [place] [address] 06367- 4414 Jul, Other bipolar disorder F31.89 and Anxiety disorder, unspecified F41.9 [facility] [id number] [place] [address] 73269- 6629 18 Jul, 2015 Other bipolar disorder F31.89 and Fibromyalgia M79.7 [facility] [id number] [place] [address] 53915- 7355 Jul, [facility] [id number] [place] [address] 60516- 3482 Jul, [facility] [address] 79348- 3811 Jul, [facility] [id number] [place] [address] 87213- 1398 Jul, Other bipolar disorder F31.89 and Anxiety disorder, unspecified F41.9 [facility] [address] 56529- 9250 Jun, GERD (gastroesophageal reflux disease) K21.9 [facility] [address] 48529- 4599 Jun, [facility] [address] 27205- 4302 May, [facility] [address] 07566- 8487 May, Diabetes E11.9 ; Back pain M54.9 ; GERD (gastroesophageal reflux disease) K21.9 ; Hypertension I10 and Peripheral neuropathy G62.9 [facility] [id number] [place] [address] 30506- 5417 Mar, [facility] [id number] [place] [address] 76162- 5879 Mar, [facility] [id number] [place] [address] 23993- 3711 Mar, Acute sinusitis J01.90 and Otitis media, left H66.92 [facility] [address] 61125- 9423 Feb, [facility] [address] 52090- 3832 Feb, [facility] [id number] [place] [address] 02917- 6093 Feb, [facility] [address] [address] Feb, [facility] [id number] [place] [address]- [address] Jan, [facility] [id number] [place] [address] 47[address]- 2361 Jan, Diabetes 250.00 and Back pain 724.5 [facility] [id number] [place] [address]- [address] Jan, [facility] [id number] [place] [address] 92180- 8171 Dec, Diabetes 250.00 ; Benign essential hypertension 401.1 and Allergic rhinitis 477.9 [facility] [id number] [place] [address] 36463- 4827 Dec, [facility] [id number] [place] [address] 98350- 0085 Dec, [facility] [id number] [place] [address] 84565- 2666 Dec, Psychosis 298.9 [facility] [id number] [place] [address] 7[address]- 8415 Dec, Medication side effect 995.20 and Generalized anxiety disorder 300.02 [facility] [id number] [place] [address] 9[address]31- 1259 Dec, Acquired cognitive dysfunction 294.9 [facility] [id number] [place] [address] 75602- 7332 Dec, [facility] [id number] [place] [address] 32277- 5130 Dec, Unspecified myalgia and myositis 729.1 and Generalized anxiety disorder 300.02 [facility] [id number] [place] [address] 00130- 5644 Nov, [facility] [id number] [place] [address] 60337- 3209 Nov, [facility] [id number] [address] Nov, [facility] [id number] [place] [address]80- 9916 Nov, Upper respiratory infection 465.9 and Chronic airway obstruction, not elsewhere classified 496 [facility] [id number] [place] [address] 74080- 0076 Nov, Hyponatremia 276.1 [facility] [id number] [place] [address] 14376- 6348 Oct, [facility] [id number] [place] [address] 76739- 9241 Oct, [facility] [id number] [place] [address] 01757- 4001 Oct, [facility] [id number] [place] [address] 95189- 7133 Oct, [facility] [id number] [place] [address] 25493- 4885 Oct, Hyponatremia 276.1 [facility] [id number] [place] [address] 66050- 1067 Oct, [facility] [id number], [place] [address] Oct, [facility] [id number] [place] [address] 34069- 9135 Oct, Generalized anxiety disorder 300.02 [facility] [id number] [place] [address] 16867- 2229 Oct, Generalized anxiety disorder 300.02 and Diabetes 250.00 [facility] [id number], [place] [address] 14 Aug, 2014 [facility] [id number] [place] [address] 95129- 5466 Aug, [facility] [place] [facility] [address] [id number] [place] [address]24 Jul, [facility] [place] [facility] [address] [id number] [place] [address]- 0120 Jul, [facility] [place] [facility] [address] [id number] [place] [address]- 3487 Jun, [facility] [place] [facility] [address] [id number] [place] [address]- 2725 Jun, [facility] [place] [facility] [address] [id number] [place] [address]- 5861 Jun, [facility] [place] [facility] [address] [id number] [place] [address]- 1450 Jun, [facility] [place] [facility] [address] [id number] [place] [address]- 8500 Jun, [facility] [place] [facility] [address] [id number] [place] [address]- 1093 May, [facility] [place] [facility] [address] [id number] [place] [address]- 1558 May, [facility] [place] [facility] [address] [id number] [place] [address]- 6750 Apr, [facility] [place] [facility] [address] [id number] [place] [address]- 3861 Apr, [facility] [place] [facility] [address] [id number] [place] [address]- 6975 18 Apr, 2013 [facility] [place] [facility] [address] [id number] [place] [address]- 4289 18 Apr, 2013 [facility] [place] [facility] [address] [id number] [place] [address]- 9317 Apr, [facility] [place] [facility] [address] [id number] [place] [address]- 4909 17 Apr, 2013 [facility] [place] [facility] [address] [id number] [place] [address]- 2546 Apr, [facility] [address] [id number] [place] [address]- 6429 Apr, [facility] [place] [facility] [address] [id number] [place] [address]- 2546 Feb, [facility] [address] [id number] [place] [address]- 2540 Feb, [facility] [address] [id number] [place] [address]- 2543 Jan, [facility] [address] [id number] [place] [address]- 8839 Jan, [facility] [address] [id number] [place] [address]- 2045 Dec, [facility] [address] [id number] [place] [address]- 0455 Dec, [facility] [address] [id number] [place] [address]- 9109 Dec, [facility] [address] [id number] [place] [address]- 8664 Nov, [facility] [address] [id number] [place] [address]- 6223 Nov, [facility] [address] [id number] [place] [address]- 2541 Nov, [facility] [address] [id number] [place] [address]- 4605 Oct, [facility] [place] [facility] [address] [id number] [place] [address]- 6848 Oct, [facility] [place] [facility] [address] [id number] [place] [address]- 2546 Oct, [facility] [address] [id number] [place] [address]- 6935 September, [facility] [address] [id number] [place] [address]- 8497 September, [facility] [place] [facility] [address] [id number] [place] [address]- 5764 September, [facility] [place] [facility] [address] [id number] [place] [address]- 9906 Aug, [facility] [place] [facility] [address] [id number] [place] [address]- 4593 Aug, [facility] [address] [id number] [place] [address]- 3789 Aug, [facility] [place] [facility] [address] [id number] [place] [address]- 6432 16 Aug, 2011 [facility] [place] [facility] [address] [id number] [place] [address]- 8212 Jul, [facility] [place] [facility] [address] [id number] [place] [address]- 0814 Jun, [facility] [place] [facility] [address] [id number] [place] [address]- 3857 14 Jun, 2011 [facility] [place] [facility] [address] [id number] [place] [address]- 3951 Jun, [facility] [place] [facility] [address] [id number] [place] [address]- 7592 Jun, [facility] [place] [facility] [address] [id number] [place] [address]- 9671 Jun, [facility] [place] [facility] [address] [id number] [place] [address]- 4836 May, [facility] [place] [facility] [address] [id number] [place] [address]- 7283 May, [facility] [place] [facility] [address] [id number] [place] [address]- 8801 May, [facility] [place] [facility] [address] [id number] [place] [address]- 3409 04 May, 2011 [facility] [address] [id number] [place] [address]- 1873 Apr, [facility] [place] [facility] [address] [id number] [place] [address] 13 Apr, 2011 [facility] [place] [facility] [address] [id number] [place] [address]- 9175 05 Apr, 2011 [facility] [place] [facility] [address] [id number] [place] [address]- 3538 Mar, [facility] [place] [facility] [address] [id number] [place] [address]- 0027 Mar, [facility] [place] [facility] [address] [id number] [place] [address]- 6292 Mar, [facility] [place] [facility] [address] [id number] [place] [address]- 9870 Feb, [facility] [place] [facility] [address] [id number] [place] [address]- 2780 Feb, [facility] [place] [facility] [address] [id number] [place] [address]- 8174 Feb, [facility] [place] [facility] [address] [id number] [place] [address]- 3226 Nov, [facility] [place] [facility] [address] [id number] [place] [address]- 8092 September, [facility] [place] [facility] [address] [id number] [place] [address]- 9652 Aug, [facility] [place] [facility] [address] [id number] [place] [address]- 9917 14 Jul, 2010 [facility] [place] [facility] [address] [id number] [place] [address]- 4778 May, [facility] [place] [facility] [address] [id number] [place] [address]- 4194 Apr, [facility] [address] [facility] [id number] [place] [address]- 3955 Apr, [facility] [address] [facility] [id number], [place] [address]- 0057 Apr, [facility] [address] [facility] [id number], [place] [address]- 5708 Apr, [facility] [address] [facility] [id number], [place] [address]- 3186 Apr, IMMUNIZATIONS No Known Immunizations SOCIAL HISTORY Never Assessed REASON FOR VISIT Symbicort note PLAN OF CARE VITAL SIGNS MEDICATIONS Medication Instructions Dosage Frequency Start Date End Date Duration Status Breo Ellipta 100-25 MCG/INH Inhalation Once a day 1 puff 24h Dec, 30 days Active RESULTS No Results [...]
--- OUTSIDE RECORDS SUMMARY | 2017-11-18 07:39 | XMS REPORT | Continuity of Care Document ---
Author Author Formerly [facility] Address Unknown Phone Unavailable Allergies Active Description Code Type Severity Reaction Onset Reported/Identified Relationship to Patient Clinical Status Yes Darvocet-N 100 Drug Allergy N /A N/A 04/17/2010 Yes Neurontin Drug Allergy N/A N/A 07/14/2010 Yes desipramine Drug Allergy N/A N/A 12/04/2010 Yes propoxyphene napsylate [id number] Drug Allergy Unknown N/A 07/06/2012 Yes cefdinir [id number] Drug Allergy Unknown N/A 03/12/2017 Yes diphenhydramine [id number] Drug Allergy Unknown N/A 03/12/2017 Yes latex [id number] Drug Allergy Unknown N/A 03/12/2017 Yes Penicillins [id number] Drug Allergy Unknown N/A 03/12/2017 Medications There is no data. Problems Date Dx Coded Attending Type Code Diagnosis Diagnosed By 04/17/2010 250.00 DIABETES MELLITUS 04/17/2010 272.2 HYPERLIPOPROTEINEMIA MIXED 04/17/2010 401.9 HYPERTENSION ( SYSTEMIC) 04/17/2010 496 Chronic Obstructive Pulmonary Disease 04/17/2010 SOFIA PARKS DO 250.00 DIABETES MELLITUS 04/17/2010 SOFIA PARKS DO 272.2 HYPERLIPOPROTEINEMIA MIXED 04/17/2010 SOFIA PARKS DO 401.9 HYPERTENSION (SYSTEMIC) 04/17/2010 SOFIA PARKS DO 496 Chronic Obstructive Pulmonary Disease 04/17/2010 JAKI MEDINA MD 250.00 DIABETES MELLITUS 04/17/2010 JAKI MEDINA MD 272.2 HYPERLIPOPROTEINEMIA MIXED 04/17/2010 JAKI MEDINA MD 401.9 HYPERTENSION (SYSTEMIC) 04/17/2010 JAKI MEDINA MD 496 Chronic Obstructive Pulmonary Disease 04/17/2010 JAKI MEDINA MD 250.00 DIABETES MELLITUS 04/17/2010 JAKI MEDINA MD 272.2 HYPERLIPOPROTEINEMIA MIXED 04/17/2010 CAROL BOLAND, JAKI 401.9 HYPERTENSION (SYSTEMIC) 04/17/2010 JAKI MEDINA MD 496 Chronic Obstructive Pulmonary Disease 04/17/2010 CAROL BOLAND, JAKI 250.00 DIABETES MELLITUS 04/17/2010 CAROL BOLAND, JAKI 272.2 HYPERLIPOPROTEINEMIA MIXED 04/17/2010 CAROL BOLAND, JAKI 401.9 HYPERTENSION (SYSTEMIC) 04/17/2010 JAKI MEDINA MD 496 Chronic Obstructive Pulmonary Disease 04/17/2010 CAROL BOLAND, JAKI 250.00 DIABETES MELLITUS 04/17/2010 CAROL BOLAND, JAKI 272.2 HYPERLIPOPROTEINEMIA MIXED 04/17/2010 CAROL BOLAND, JAKI 401.9 HYPERTENSION (SYSTEMIC) 04/17/2010 CAROL BOLAND, JAKI 496 Chronic Obstructive Pulmonary Disease 05/14/2010 786.2 cough 05/14/2010 SOFIA PARKS DO 786.2 cough 05/14/2010 CAROL BOLAND, JAKI 786.2 cough 05/14/2010 CAROL BOLAND, JAKI 786.2 cough 05/14/2010 CAROL BOLAND, JAKI 786.2 cough 05/14/2010 CAROL BOLAND, JAKI 786.2 cough 05/16/2010 466.0 ACUTE BRONCHITIS 05/16/2010 SOFIA PARKS DO 466.0 ACUTE BRONCHITIS 05/16/2010 CAROL BOLAND, JAKI 466.0 ACUTE BRONCHITIS 05/16/2010 CAROL BOLAND, JAKI 466.0 ACUTE BRONCHITIS 05/16/2010 CAROL BOLAND, JAKI 466.0 ACUTE BRONCHITIS 05/16/2010 CAROL BOLAND, JAKI 466.0 ACUTE BRONCHITIS 05/20/2010 300.01 ANXIETY DISORDER DUE TO GEN MEDICAL CONDITION, PANIC ATTACKS 05/20/2010 SOFIA PARKS DO 300.01 ANXIETY DISORDER DUE TO GEN MEDICAL CONDITION, PANIC ATTACKS 05/20/2010 JAKI MEDINA MD 300.01 ANXIETY DISORDER DUE TO GEN MEDICAL CONDITION, PANIC ATTACKS 05/20/2010 JAKI MEDINA MD 300.01 ANXIETY DISORDER DUE TO GEN MEDICAL CONDITION, PANIC ATTACKS 05/20/2010 JAKI MEDINA MD 300.01 ANXIETY DISORDER DUE TO GEN MEDICAL CONDITION, PANIC ATTACKS 05/20/2010 JAKI MEDINA MD 300.01 ANXIETY DISORDER DUE TO GEN MEDICAL CONDITION, PANIC ATTACKS 06/20/2010 300.02 GENERALIZED ANXIETY DISORDER 06/20/2010 300.21 PANIC DISORDER WITH AGORAPHOBIA 06/20/2010 307.47 NIGHTMARE DISORDER 06/20/2010 309.81 POSTTRAUMATIC STRESS DISORDER 06/20/2010 311 DEPRESSIVE DISORDER NOS 06/20/2010 RYAN PARKS DOA K 300.02 GENERALIZED ANXIETY DISORDER 06/20/2010 PARKS RYAN COURTNEYA K 300.21 PANIC DISORDER WITH AGORAPHOBIA 06/20/2010 RYAN PARKS DOA K 307.47 NIGHTMARE DISORDER 06/20/2010 RYAN PARKS DOA K 309.81 POSTTRAUMATIC STRESS DISORDER 06/20/2010 PARKS , SOFIA K 311 DEPRESSIVE DISORDER NOS 06/20/2010 JAKI MEDINA MD 300.02 GENERALIZED ANXIETY DISORDER 06/20/2010 JAKI MEDINA MD 300.21 PANIC DISORDER WITH AGORAPHOBIA 06/20/2010 JAKI MEDINA MD 307.47 NIGHTMARE DISORDER 06/20/2010 JAKI MEDINA MD 309.81 POSTTRAUMATIC STRESS DISORDER 06/20/2010 JAKI MEDINA MD 311 DEPRESSIVE DISORDER NOS 06/20/2010 JAKI MEDINA MD 300.02 GENERALIZED ANXIETY DISORDER 06/20/2010 JAKI MEDINA MD 300.21 PANIC DISORDER WITH AGORAPHOBIA 06/20/2010 JAKI MEDINA MD 307.47 NIGHTMARE DISORDER 06/20/2010 JAKI MEDINA MD 309.81 POSTTRAUMATIC STRESS DISORDER 06/20/2010 JAKI MEDINA MD 311 DEPRESSIVE DISORDER NOS 06/20/2010 JAKI MEDINA MD 300.02 GENERALIZED ANXIETY DISORDER 06/20/2010 JAKI MEDINA MD 300.21 PANIC DISORDER WITH AGORAPHOBIA 06/20/2010 JAKI MEDINA MD 307.47 NIGHTMARE DISORDER 06/20/2010 JAKI MEDINA MD 309.81 POSTTRAUMATIC STRESS DISORDER 06/20/2010 JAKI MEDINA MD 311 DEPRESSIVE DISORDER NOS 06/20/2010 JAKI MEDINA MD 300.02 GENERALIZED ANXIETY DISORDER 06/20/2010 JAKI MEDINA MD 300.21 PANIC DISORDER WITH AGORAPHOBIA 06/20/2010 JAKI MEDINA MD 307.47 NIGHTMARE DISORDER 06/20/2010 JAKI MEDINA MD 309.81 POSTTRAUMATIC STRESS DISORDER 06/20/2010 JAKI MEDINA MD 311 DEPRESSIVE DISORDER NOS 07/14/2010 780.4 dizziness 07/14/2010 SOFIA PARKS DO 780.4 dizziness 07/14/2010 JAKI MEDINA MD 780.4 dizziness 07/14/2010 JAKI MEDINA MD 780.4 dizziness 07/14/2010 JAKI MEDINA MD 780.4 dizziness 07/14/2010 JAKI MEDINA MD 780.4 dizziness 07/21/2010 686.9 DERMATOLOGY - FUNGAL 07/21/2010 995.20 ADVERSE EFFECT OF DRUG THERAPY 07/21/2010 SOFIA PARKS DO 686.9 DERMATOLOGY - FUNGAL 07/21/2010 SOFIA PARKS DO 995.20 ADVERSE EFFECT OF DRUG THERAPY 07/21/2010 JAKI MEDINA MD 686.9 DERMATOLOGY - FUNGAL 07/21/2010 JAKI MEDINA MD 995.20 ADVERSE EFFECT OF DRUG THERAPY 07/21/2010 JAKI MEDINA MD6.9 DERMATOLOGY - FUNGAL 07/21/2010 JAKI MEDINA MD 995.20 ADVERSE EFFECT OF DRUG THERAPY 07/21/2010 JAKI MEDINA MD 686.9 DERMATOLOGY - FUNGAL 07/21/2010 JAKI MEDINA MD 995.20 ADVERSE EFFECT OF DRUG THERAPY 07/21/2010 JAKI MEDINA MD 686.9 DERMATOLOGY - FUNGAL 07/21/2010 JAKI MEDINA MD 995.20 ADVERSE EFFECT OF DRUG THERAPY 08/19/2010 564.1 IRRITABLE BOWEL SYNDROME 08/19/2010 SOFIA PARKS DO 564.1 IRRITABLE BOWEL SYNDROME 08/19/2010 JAKI MEDINA MD 564.1 IRRITABLE BOWEL SYNDROME 08/19/2010 JAKI MEDINA MD 564.1 IRRITABLE BOWEL SYNDROME 08/19/2010 JAKI MEDINA MD 564.1 IRRITABLE BOWEL SYNDROME 08/19/2010 JAKI MEDINA MD 564.1 IRRITABLE BOWEL SYNDROME 09/04/2010 995.27 ALLERGIC DRUG REACTION 09/04/2010 SOFIA PARKS DO 995.27 ALLERGIC DRUG REACTION 09/04/2010 JAKI EMDINA MD 995.27 ALLERGIC DRUG REACTION 09/04/2010 JAKI MEDINA MD 995.27 ALLERGIC DRUG REACTION 09/04/2010 JAKI MEDINA MD 995.27 ALLERGIC DRUG REACTION 09/04/2010 JAKI MEDINA MD 995.27 ALLERGIC DRUG REACTION 09/22/2010 789.00 abdominal pain 09/22/2010 SOFIA PARKS DO 789.00 abdominal pain 09/22/2010 JAKI MEDINA MD 789.00 abdominal pain 09/22/2010 JAKI MEDINA MD 789.00 abdominal pain 09/22/2010 JAKI MEDINA MD 789.00 abdominal pain 09/22/2010 JAKI MEDINA MD 789.00 abdominal pain 01/07/2011 300.00 AN ANXIETY UNSPEC 01/07/2011 SOFIA PARKS DO 300.00 AN ANXIETY UNSPEC 01/07/2011 JAKI MEDINA MD 300.00 AN ANXIETY UNSPEC 01/07/2011 JAKI MEDINA MD 300.00 AN ANXIETY UNSPEC 01/07/2011 JAKI MEDINA MD 300.00 AN ANXIETY UNSPEC 01/07/2011 JAKI MEDINA MD 300.00 AN ANXIETY UNSPEC 02/19/2011 716.90 ARTHRITIS 02/19/2011 V04.81 Vaccines Prophylactic Need Against Influenza 02/19/2011 SOFIA PARKS DO 716.90 ARTHRITIS 02/19/2011 SOFIA PARKS DO V04.81 Vaccines Prophylactic Need Against Influenza 02/19/2011 JAKI MEDINA MD 716.90 ARTHRITIS 02/19/2011 JAKI MEDINA MD V04.81 Vaccines Prophylactic Need Against Influenza 02/19/2011 JAKI MEDINA MD 716.90 ARTHRITIS 02/19/2011 JAKI MEDINA MD V04.81 Vaccines Prophylactic Need Against Influenza 02/19/2011 JAKI MEDINA MD 716.90 ARTHRITIS 02/19/2011 JAKI MEDINA MD V04.81 Vaccines Prophylactic Need Against Influenza 02/19/2011 JAKI MEDINA MD 716.90 ARTHRITIS 02/19/2011 JAKI MEDINA MD V04.81 Vaccines Prophylactic Need Against Influenza 04/13/2011 300.21 AN PANIC DIS W AGORA 04/13/2011 307.47 SI DYSSOMNIA NOS 04/13/2011 SOFIA PARKS DO 300.21 AN PANIC DIS W AGORA 04/13/2011 SOFIA PARKS DO 307.47 SI DYSSOMNIA NOS 04/13/2011 JAKI MEDINA MD 300.21 AN PANIC DIS W AGORA 04/13/2011 JAKI MEDINA MD 307.47 SI DYSSOMNIA NOS 04/13/2011 JAKI MEDINA MD 300.21 AN PANIC DIS W AGORA 04/13/2011 JAKI MEDINA MD 307.47 SI DYSSOMNIA NOS 04/13/2011 JAKI MEDINA MD 300.21 AN PANIC DIS W AGORA 04/13/2011 JAKI MEDINA MD 307.47 SI DYSSOMNIA NOS 04/13/2011 JAKI MEDINA MD 300.21 AN PANIC DIS W AGORA 04/13/2011 JAKI MEDINA MD 307.47 SI DYSSOMNIA NOS 05/22/2011 496 CHRONIC AIRWAY OBSTRUCTION NOT ELSEWHERE CLASSIFIED 05/22/2011 SOFIA PARKS DO 496 CHRONIC AIRWAY OBSTRUCTION NOT ELSEWHERE CLASSIFIED 05/22/2011 JAKI MEDINA MD CHRONIC AIRWAY OBSTRUCTION NOT ELSEWHERE CLASSIFIED 05/22/2011 JAKI MEDINA MD 496 CHRONIC AIRWAY OBSTRUCTION NOT ELSEWHERE CLASSIFIED 05/22/2011 JAKI MEDINA MD 496 CHRONIC AIRWAY OBSTRUCTION NOT ELSEWHERE CLASSIFIED 05/22/2011 JAKI MEDINA MD CHRONIC AIRWAY OBSTRUCTION NOT ELSEWHERE CLASSIFIED 06/22/2011 300.02 AN GEN ANXIETY 06/22/2011 SOFIA PARKS DO 300.02 AN GEN ANXIETY 06/22/2011 JAKI MEDINA MD 300.02 AN GEN ANXIETY 06/22/2011 JAKI MEDINA MD 300.02 AN GEN ANXIETY 06/22/2011 JAKI MEDINA MD 300.02 AN GEN ANXIETY 06/22/2011 JAKI MEDINA MD 300.02 AN GEN ANXIETY 09/17/2011 Ot 780.79 OTH MALAISE FATIGUE 09/17/2011 Ot 787.03 VOMITING ALONE 09/17/2011 Ot 789.00 ABDOMINAL PAIN, UNSPECIFIED SITE 07/07/2012 Ot 311 DEPRESSIVE DISORDER NEC 07/07/2012 Ot 401.9 HYPERTENSION NOS 07/07/2012 Ot 491.9 CHRONIC BRONCHITIS NOS 07/07/2012 Ot 530.81 ESOPHAGEAL REFLUX 07/07/2012 Ot 729.1 MYALGIA AND MYOSITIS NOS 07/07/2012 Ot V58.69 OTH MED,LT, CURRENT USE 07/09/2012 Ot 692.9 DERMATITIS NOS 01/13/2013 SOFIA PARKS DO 305.1 TOBACCO ABUSE 01/13/2013 SOFIA PARKS DO 491.21 BRONCHITIS AECB 01/13/2013 JAKI MEDINA MD 305.1 TOBACCO ABUSE 01/13/2013 CAROL BOLAND, JAKI 491.21 BRONCHITIS AECB 01/13/2013 JAKI MEDINA MD 305.1 TOBACCO ABUSE 01/13/2013 CAROL BOLAND, JAKI 491.21 BRONCHITIS AECB 01/13/2013 CAROL BOLAND, JAKI 305.1 TOBACCO ABUSE 01/13/2013 CAROL BOLAND, JAKI 491.21 BRONCHITIS AECB 01/13/2013 JAKI MEDINA MD 305.1 TOBACCO ABUSE 01/13/2013 CAROL BOLAND, JAKI 491.21 BRONCHITIS AECB 03/09/2013 JAKI MEDINA MD 564.00 UNSPECIFIED CONSTIPATION 03/09/2013 JAKI MEDINA MD 729.1 MYALGIA AND MYOSITIS UNSPECIFIED 03/09/2013 CAROL BOLAND, JAKI 564.00 UNSPECIFIED CONSTIPATION 03/09/2013 JAKI MEDINA MD 729.1 MYALGIA AND MYOSITIS UNSPECIFIED 03/09/2013 JAKI MEDINA MD 564.00 UNSPECIFIED CONSTIPATION 03/09/2013 JAKI MEDINA MD 729.1 MYALGIA AND MYOSITIS UNSPECIFIED 03/09/2013 JAKI MEDINA MD 564.00 UNSPECIFIED CONSTIPATION 03/09/2013 JAKI MEDINA MD 729.1 MYALGIA AND MYOSITIS UNSPECIFIED 03/23/2014 Ot V68.01 03/23/2014 Ot V82.89 03/23/2014 Ot 611.72 03/23/2014 Ot 610.3 03/23/2014 Ot 611.72 03/23/2014 Ot 793.82 03/23/2014 Ot V76.12 03/23/2014 Ot 793.81 03/23/2014 Ot 530.81 03/23/2014 Ot V72.63 03/23/2014 Ot V74.8 03/23/2014 PARVIN BOLAND, RICK Lama Ot 530.3 03/23/2014 PARVIN BOLAND, RICK Lama Ot V72.84 03/26/2014 ANUJ BOLAND, TUCKER Faye Ot 722.52 LUMB/LUMBOSAC DISC DEGEN 03/26/2014 ANUJ BOLAND, TUCKER Faye Ot 722.83 POSTLAMINECT SYND-LUMBAR 03/26/2014 TUCKER LESLIE MD Ot 729.1 MYALGIA AND MYOSITIS NOS 03/26/2014 ANUJ BOLAND, TUCKER Faye Ot V58.69 OT MED,LT,CURRENT USE 08/15/2014 Ot V68.01 08/15/2014 Ot V82.89 08/15/2014 Ot 611.72 08/15/2014 Ot 610.3 08/15/2014 Ot 611.72 08/15/2014 Ot 793.82 08/15/2014 Ot V76.12 08/15/2014 Ot 793.81 08/15/2014 Ot 530.81 08/15/2014 Ot V72.63 08/15/2014 Ot V74.8 08/15/2014 PARVIN BOLAND, RICK Lama Ot 530.3 08/15/2014 PARVIN BOLAND, RICK Lama Ot V72.84 08/17/2014 Ot V68.01 08/17/2014 Ot V82.89 08/17/2014 Ot 611.72 08/17/2014 Ot 610.3 08/17/2014 Ot 611.72 08/17/2014 Ot 793.82 08/17/2014 Ot V76.12 08/17/2014 Ot 793.81 08/17/2014 Ot 530.81 08/17/2014 Ot V72.63 08/17/2014 Ot V74.8 08/17/2014 PARVIN BOLAND, RICK Lama Ot 530.3 08/17/2014 PARVIN BOLAND, RICK Lama Ot V72.84 09/11/2014 DEJUAN BOLAND, WAYLON Faye Ot 724.4 10/17/2014 DEJUAN BOLAND, WAYLON Faye Ot 724.4 12/18/2014 Ot 611.72 12/18/2014 Ot 610.3 12/18/2014 Ot 611.72 12/18/2014 Ot 793.82 12/18/2014 Ot V76.12 12/18/2014 Ot 793.81 12/18/2014 Ot 530.81 12/18/2014 Ot V72.63 12/18/2014 Ot V74.8 12/18/2014 PARVIN BOLAND, RICK Lama Ot 530.3 12/18/2014 PARVIN BOLAND, RICK Lama Ot V72.84 12/18/2014 DEJUAN BOLAND, WAYLON Faye Ot 724.4 12/18/2014 ABNER BOLANDJUSTIN Ot 300.00 ANXIETY STATE NOS 12/18/2014 JUSTIN LEVINE MD Ot 300.01 PANIC DISORDER WITHOUT AGORAPHOBIA 12/18/2014 JUSTIN LEVINE MD Ot 401.9 HYPERTENSION NOS 12/18/2014 JUSTIN LEVINE MD Ot V45.89 POSTSURGICAL STATES NEC 12/18/2014 JUSTIN LEVINE MD Ot V58.69 OTH MED,LT,CURRENT USE 06/28/2015 JOVANY LOU MD Ot E11.9 TYPE 2 DIABETES MELLITUS WITHOUT COMPLIC 06/28/2015 JOVANY LOU MD Ot F17.210 NICOTINE DEPENDENCE, CIGARETTES, UNCOMPL 06/28/2015 JOVANY LOU MD Ot R07.89 OTHER CHEST PAIN 06/28/2015 JOVANY LOU MD Ot R13.10 DYSPHAGIA, UNSPECIFIED 06/28/2015 JOVANY LOU MD Ot R20.2 PARESTHESIA OF SKIN 06/28/2015 JOVANY LOU MD Ot T43.215A ADVRS EFFECT OF SLCTV SEROTON/NOREPINEPH 06/28/2015 JOVANY LOU MD Ot Z79.4 BIN PACKER (CURRENT) USE OF INSULIN 06/28/2015 Ot 611.72 06/28/2015 Ot 610.3 06/28/2015 Ot 611.72 06/28/2015 Ot 793.82 06/28/2015 Ot V76.12 06/28/2015 Ot 793.81 06/28/2015 Ot 530.81 06/28/2015 Ot V72.63 06/28/2015 Ot V74.8 06/28/2015 PARVIN BOLAND, RICK Lama Ot 530.3 06/28/2015 RICK MELENDREZ MD Ot V72.84 06/28/2015 DEJUAN BOLAND, WAYLON Faye Ot 724.4 10/04/2015 Ot 611.72 LUMP OR MASS IN BREAST 10/04/2015 Ot 610.3 FIBROSCLEROSIS OF BREAST 10/04/2015 Ot 611.72 LUMP OR MASS IN BREAST 10/04/2015 Ot 793.82 INCONCLUSIVE MAMMOGRAM 10/04/2015 Ot V76.12 OTH SCREEN MAMMO-MALIGN NEOPLASM OF ALBERTO 10/04/2015 Ot 793.81 MAMMOGRAPHIC MICROCLACIFICATION 10/04/2015 Ot 530.81 ESOPHAGEAL REFLUX 10/04/2015 Ot V72.63 PRE- PROCEDURAL LABORATORY EXAMINATION 10/04/2015 Ot V74.8 SCREEN- BACTERIAL DIS NEC 10/04/2015 PARVIN BOLAND, RICK Lama Ot 530.3 ESOPHAGEAL STRICTURE 10/04/2015 PARVIN BOLAND, RICK Lama Ot V72.84 EXAM PRE-OPERATIVE NOS 10/04/2015 DEJUAN BOLAND, WAYLON Faye Ot 724.4 LUMBOSACRAL NEURITIS NOS 10/29/2015 Ot 610.3 FIBROSCLEROSIS OF BREAST 10/29/2015 Ot 611.72 LUMP OR MASS IN BREAST 10/29/2015 Ot 793.82 INCONCLUSIVE MAMMOGRAM 10/29/2015 Ot V76.12 OTH SCREEN MAMMO-MALIGN NEOPLASM OF ALBERTO 10/29/2015 Ot 793.81 MAMMOGRAPHIC MICROCLACIFICATION 10/29/2015 Ot 530.81 ESOPHAGEAL REFLUX 10/29/2015 Ot V72.63 PRE- PROCEDURAL LABORATORY EXAMINATION 10/29/2015 Ot V74.8 SCREEN- BACTERIAL DIS NEC 10/29/2015 PARVIN BOLAND, RICK Lama Ot 530.3 ESOPHAGEAL STRICTURE 10/29/2015 PARVIN BOLAND, RICK Lama Ot V72.84 EXAM PRE-OPERATIVE NOS 10/29/2015 EDJUAN BOLAND, WAYLON Faye Ot 724.4 LUMBOSACRAL NEURITIS NOS 10/31/2015 VALENTIN ARTEAGA DO Ot Z01.818 ENCOUNTER FOR OTHER PREPROCEDURAL EXAMIN 11/01/2015 VALENTIN ARTEAGA DO Ot Z01.818 ENCOUNTER FOR OTHER PREPROCEDURAL EXAMIN 11/06/2015 VALENTIN ARTEAGA DO Ot E11.9 TYPE 2 DIABETES MELLITUS WITHOUT COMPLIC 11/06/2015 VALENTIN ARTEAGA DO Ot K29.70 GASTRITIS, UNSPECIFIED, WITHOUT BLEEDING 11/06/2015 VALENTIN ARTEAGA DO Ot K59.00 CONSTIPATION, UNSPECIFIED 11/06/2015 VALENTIN ARTEAGA DO Ot R19.7 DIARRHEA, UNSPECIFIED 11/12/2015 VALENTIN ARTEAGA DO Ot E11.9 TYPE 2 DIABETES MELLITUS WITHOUT COMPLIC 11/12/2015 VALENTIN ARTEAGA DO Ot K29.70 GASTRITIS, UNSPECIFIED, WITHOUT BLEEDING 11/12/2015 ARTEAGA DO, VALENTIN D Ot K59.00 CONSTIPATION, UNSPECIFIED 11/12/2015 ARTEAGA DO, VALENTIN D Ot R19.7 DIARRHEA, UNSPECIFIED 11/14/2015 ARTEAGA DO, VALENTIN D Ot E11.9 TYPE 2 DIABETES MELLITUS WITHOUT COMPLIC 11/14/2015 ARTEAGA DO, VALENTIN D Ot K29.70 GASTRITIS, UNSPECIFIED, WITHOUT BLEEDING 11/14/2015 ARTEAGA DO, VALENTIN D Ot K59.00 CONSTIPATION, UNSPECIFIED 11/14/2015 ARTEAGA DO, VALENTIN D Ot R19.7 DIARRHEA, UNSPECIFIED 11/21/2015 Ot 610.3 FIBROSCLEROSIS OF BREAST 11/21/2015 Ot 611.72 LUMP OR MASS IN BREAST 11/21/2015 Ot 793.82 INCONCLUSIVE MAMMOGRAM 11/21/2015 Ot V76.12 OTH SCREEN MAMMO-MALIGN NEOPLASM OF ALBERTO 11/21/2015 Ot 793.81 MAMMOGRAPHIC MICROCLACIFICATION 11/21/2015 Ot 530.81 ESOPHAGEAL REFLUX 11/21/2015 Ot V72.63 PRE- PROCEDURAL LABORATORY EXAMINATION 11/21/2015 Ot V74.8 SCREEN- BACTERIAL DIS NEC 11/21/2015 PARVIN BOLAND, RICK Lama Ot 530.3 ESOPHAGEAL STRICTURE 11/21/2015 PARVIN BOLAND, RICK Lama Ot V72.84 EXAM PRE-OPERATIVE NOS 11/21/2015 DEJUAN BOLAND, WAYLON Faye Ot 724.4 LUMBOSACRAL NEURITIS NOS 11/21/2015 ARTEAGA DO, VALENTIN D Ot E11.9 TYPE 2 DIABETES MELLITUS WITHOUT COMPLIC 11/21/2015 ARTEAGA DO, VALENTIN D Ot K29.70 GASTRITIS, UNSPECIFIED, WITHOUT BLEEDING 11/21/2015 ARTEAGA DO, VALENTIN D Ot K59.00 CONSTIPATION, UNSPECIFIED 11/21/2015 ARTEAGA DO, VALENTIN D Ot R19.7 DIARRHEA, UNSPECIFIED 11/21/2015 ARTEAGA DO, VALENTIN D Ot E11.9 TYPE 2 DIABETES MELLITUS WITHOUT COMPLIC 11/21/2015 ARTEAGA DO, VALENTIN D Ot K29.70 GASTRITIS, UNSPECIFIED, WITHOUT BLEEDING 11/21/2015 ARTEAGA DO, VALENTIN D Ot K59.00 CONSTIPATION, UNSPECIFIED 11/21/2015 ARTEAGA DO, VALENTIN D Ot R19.7 DIARRHEA, UNSPECIFIED 11/22/2015 VALENTIN ARTEAGA DO Ot E11.9 TYPE 2 DIABETES MELLITUS WITHOUT COMPLIC 11/22/2015 VALENTIN ARTEAGA DO Ot K29.70 GASTRITIS, UNSPECIFIED, WITHOUT BLEEDING 11/22/2015 VALENTIN ARTEAGA DO Ot K59.00 CONSTIPATION, UNSPECIFIED 11/22/2015 VALENTIN ARTEAGA DO Ot R19.7 DIARRHEA, UNSPECIFIED 12/06/2015 JOVANY LOU MD Ot E11.9 TYPE 2 DIABETES MELLITUS WITHOUT COMPLIC 12/06/2015 DASHA BOLAND, JOVANY Bailon Ot F17.210 NICOTINE DEPENDENCE, CIGARETTES, UNCOMPL 12/06/2015 JOVANY LOU MD Ot R07.89 OTHER CHEST PAIN 12/06/2015 JOVANY LOU MD Ot R13.10 DYSPHAGIA, UNSPECIFIED 12/06/2015 JOVANY LOU MD Ot R20.2 PARESTHESIA OF SKIN 12/06/2015 JOVANY LOU MD Ot T43.215A ADVRS EFFECT OF SLCTV SEROTON/NOREPINEPH 12/06/2015 JOVANY LOU MD Ot Z79.4 BIN PACKER (CURRENT) USE OF INSULIN 03/06/2016 Ot 610.3 FIBROSCLEROSIS OF BREAST 03/06/2016 Ot 611.72 LUMP OR MASS IN BREAST 03/06/2016 Ot 793.82 INCONCLUSIVE MAMMOGRAM 03/06/2016 Ot V76.12 OTH SCREEN MAMMO-MALIGN NEOPLASM OF ALBERTO 03/06/2016 Ot 793.81 MAMMOGRAPHIC MICROCLACIFICATION 03/06/2016 Ot 530.81 ESOPHAGEAL REFLUX 03/06/2016 Ot V72.63 PRE- PROCEDURAL LABORATORY EXAMINATION 03/06/2016 Ot V74.8 SCREEN- BACTERIAL DIS NEC 03/06/2016 PARVIN BOLAND, RICK Lama Ot 530.3 ESOPHAGEAL STRICTURE 03/06/2016 PARVIN BOLAND, RICK Lama Ot V72.84 EXAM PRE-OPERATIVE NOS 03/06/2016 DEJUAN BOLAND, WAYLON Faye Ot 724.4 LUMBOSACRAL NEURITIS NOS 03/06/2016 VALENTIN ARTEAGA DO Ot E11.9 TYPE 2 DIABETES MELLITUS WITHOUT COMPLIC 03/06/2016 VALENTIN ARTEAGA DO Ot K29.70 GASTRITIS, UNSPECIFIED, WITHOUT BLEEDING 03/06/2016 VALENTIN ARTEAGA DO Ot K59.00 CONSTIPATION, UNSPECIFIED 03/06/2016 VALENTIN ARTEAGA DO Ot R19.7 DIARRHEA, UNSPECIFIED 03/06/2016 CINTHIA CARABALLO APRN Ot E11.9 TYPE 2 DIABETES MELLITUS WITHOUT COMPLIC 03/06/2016 CINTHIA CARABALLO APRN Ot I10 ESSENTIAL (PRIMARY) HYPERTENSION 03/06/2016 CINTHIA CARABALLO APRN Ot J44.9 CHRONIC OBSTRUCTIVE PULMONARY DISEASE, U 03/06/2016 CINTHIA CARABALLO APRN Ot S06.0X0A CONCUSSION WITHOUT LOSS OF CONSCIOUSNESS 03/06/2016 CINTHIA CARABALLO APRN Ot S09.90XA UNSPECIFIED INJURY OF HEAD, INITIAL ENCO 03/06/2016 CINTHIA CARABALLO APRN Ot S13.4XXA SPRAIN OF LIGAMENTS OF CERVICAL SPINE, I 03/06/2016 CINTHIA CARABALLO APRN Ot W06.XXXA FALL FROM BED, INITIAL ENCOUNTER 03/06/2016 CINTHIA CARABALLO APRN Ot Y92.013 BEDROOM OF SINGLE-FAMILY (PRIVATE) HOUSE 03/06/2016 CINTHIA CARABALLO APRN Ot Y93.84 ACTIVITY, SLEEPING 03/06/2016 CINTHIA CARABALLO APRN Ot Y99.8 OTHER EXTERNAL CAUSE STATUS 03/06/2016 CINTHIA CARABALLO APRN Ot Z79.4 BIN PACKER (CURRENT) USE OF INSULIN 03/06/2016 CINTHIA CARABALLO APRN Ot Z79.84 FDC (CURRENT) USE OF ORAL HYPOGLYC 03/06/2016 CINTHIA CARABALLO APRN Ot Z79.899 OTHER BIN PACKER (CURRENT) DRUG THERAPY 03/06/2016 CINTHIA CARABALLO APRN Ot Z98.1 ARTHRODESIS STATUS 03/06/2016 Ot 610.3 FIBROSCLEROSIS OF BREAST 03/06/2016 Ot 611.72 LUMP OR MASS IN BREAST 03/06/2016 Ot 793.82 INCONCLUSIVE MAMMOGRAM 03/06/2016 Ot V76.12 OTH SCREEN MAMMO-MALIGN NEOPLASM OF ALBERTO 03/06/2016 Ot 793.81 MAMMOGRAPHIC MICROCLACIFICATION 03/06/2016 Ot 530.81 ESOPHAGEAL REFLUX 03/06/2016 Ot V72.63 PRE- PROCEDURAL LABORATORY EXAMINATION 03/06/2016 Ot V74.8 SCREEN- BACTERIAL DIS NEC 03/06/2016 PARVIN BOLAND, RICK Lama Ot 530.3 ESOPHAGEAL STRICTURE 03/06/2016 PARVIN BOLAND, RICK Lama Ot V72.84 EXAM PRE-OPERATIVE NOS 03/06/2016 DEJUAN BOLAND, WAYLON Faye Ot 724.4 LUMBOSACRAL NEURITIS NOS 03/06/2016 ARTEAGA DO, VALENTIN D Ot E11.9 TYPE 2 DIABETES MELLITUS WITHOUT COMPLIC 03/06/2016 ARTEAGA DO, VALENTIN D Ot K29.70 GASTRITIS, UNSPECIFIED, WITHOUT BLEEDING 03/06/2016 ARTEAGA DO, VALENTIN D Ot K59.00 CONSTIPATION, UNSPECIFIED 03/06/2016 ARTEAGA DO, VALENTIN D Ot R19.7 DIARRHEA, UNSPECIFIED 03/09/2016 CINTHIA CARABALLO APRN Ot E11.9 TYPE 2 DIABETES MELLITUS WITHOUT COMPLIC 03/09/2016 CINTHIA CARABALLO APRN Ot I10 ESSENTIAL (PRIMARY) HYPERTENSION 03/09/2016 CINTHIA CARABALLO APRN Ot J44.9 CHRONIC OBSTRUCTIVE PULMONARY DISEASE, U 03/09/2016 CINTHIA CARABALLO APRN Ot S06.0X0A CONCUSSION WITHOUT LOSS OF CONSCIOUSNESS 03/09/2016 CINTHIA CARABALLO APRN Ot S09.90XA UNSPECIFIED INJURY OF HEAD, INITIAL ENCO 03/09/2016 CINTHIA CARABALLO APRN Ot S13.4XXA SPRAIN OF LIGAMENTS OF CERVICAL SPINE, I 03/09/2016 CINTHIA CARABALLO APRN Ot W06.XXXA FALL FROM BED, INITIAL ENCOUNTER 03/09/2016 CINTHIA CARABALLO APRN Ot Y92.013 BEDROOM OF SINGLE-FAMILY (PRIVATE) HOUSE 03/09/2016 CINTHIA CARABALLO APRN Ot Y93.84 ACTIVITY, SLEEPING 03/09/2016 CINTHIA CARABALLO APRN Ot Y99.8 OTHER EXTERNAL CAUSE STATUS 03/09/2016 CINTHIA CARABALLO APRN Ot Z79.4 BIN PACKER (CURRENT) USE OF INSULIN 03/09/2016 CINTHIA CARABALLO APRN Ot Z79.84 BIN PACKER (CURRENT) USE OF ORAL HYPOGLYC 03/09/2016 CINTHIA CARABALLO APRN Ot Z79.899 OTHER BIN PACKER (CURRENT) DRUG THERAPY 03/09/2016 CINTHIA CARABALLO APRN Ot Z98.1 ARTHRODESIS STATUS 03/13/2017 EDE HINOJOSA MD Ot E11.9 TYPE 2 DIABETES MELLITUS WITHOUT COMPLIC 03/13/2017 EDE HINOJOSA MD Ot E78.5 HYPERLIPIDEMIA, UNSPECIFIED 03/13/2017 EDE HINOJOSA MD Ot F17.210 NICOTINE DEPENDENCE, CIGARETTES, UNCOMPL 03/13/2017 EDE HINOJOSA MD, Ot I10 ESSENTIAL (PRIMARY) HYPERTENSION 03/13/2017 EDE HINOJOSA MD Ot I69.951 HEMIPLGA FOL UNSP CEREBVASC DISEASE AFF 03/13/2017 EDE HINOJOSA MD Ot 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 03/13/2017 EDE HINOJOSA MD, Ot J44.9 CHRONIC OBSTRUCTIVE PULMONARY DISEASE, U 03/13/2017 EDE HINOJOSA MD, Ot K21.9 GASTRO-ESOPHAGEAL REFLUX DISEASE WITHOUT 03/13/2017 EDE HINOJOSA MD Ot R07.89 OTHER CHEST PAIN 03/13/2017 EDE HINOJOSA MD Ot Z79.4 BIN PACKER (CURRENT) USE OF INSULIN 03/13/2017 EDE HINOJOSA MD Ot Z79.899 OTHER FDC (CURRENT) DRUG THERAPY 03/13/2017 EDE HINOJOSA MD, Ot E11.9 TYPE 2 DIABETES MELLITUS WITHOUT COMPLIC 03/13/2017 EDE HINOJOSA MD, Ot E78.5 HYPERLIPIDEMIA, UNSPECIFIED 03/13/2017 EDE HINOJOSA MD, Ot F17.210 NICOTINE DEPENDENCE, CIGARETTES, UNCOMPL 03/13/2017 EDE HINOJOSA MD, Ot I10 ESSENTIAL (PRIMARY) HYPERTENSION 03/13/2017 EDE HINOJOSA MD Ot I69.951 HEMIPLGA FOL UNSP CEREBVASC DISEASE AFF 03/13/2017 EDE HINOJOSA MD, Ot 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 03/13/2017 EDE HINOJOSA MD, Ot J44.9 CHRONIC OBSTRUCTIVE PULMONARY DISEASE, U 03/13/2017 EDE HINOJOSA MD, Ot K21.9 GASTRO-ESOPHAGEAL REFLUX DISEASE WITHOUT 03/13/2017 EDE HINOJOSA MD Ot R07.89 OTHER CHEST PAIN 03/13/2017 EDE HINOJOSA MD, Ot Z79.4 FDC (CURRENT) USE OF INSULIN 03/13/2017 EDE HINOJOSA MD, Ot Z79.899 OTHER BIN PACKER (CURRENT) DRUG THERAPY 04/12/2017 WHIT GANDHI Ot G47.33 OBSTRUCTIVE SLEEP APNEA (ADULT) (PEDIATR 04/16/2017 WHIT GANDHI TRANSPLANT REGISTERED NURSE Ot G47.33 OBSTRUCTIVE SLEEP APNEA (ADULT) (PEDIATR 04/16/2017 WHIT GANDHI TRANSPLANT REGISTERED NURSE Ot G47.33 OBSTRUCTIVE SLEEP APNEA (ADULT) (PEDIATR 04/22/2017 Ot 530.81 ESOPHAGEAL REFLUX 04/22/2017 Ot V72.63 PRE- PROCEDURAL LABORATORY EXAMINATION 04/22/2017 Ot V74.8 SCREEN- BACTERIAL DIS NEC 04/22/2017 PARVIN BOLAND, RICK Lama Ot 530.3 ESOPHAGEAL STRICTURE 04/22/2017 PARVIN BOLAND, RICK Lama Ot V72.84 EXAM PRE-OPERATIVE NOS 04/22/2017 DEJUAN BOLAND, WAYLON Faye Ot 724.4 LUMBOSACRAL NEURITIS NOS 04/22/2017 VALENTIN ARTEAGA DO Ot E11.9 TYPE 2 DIABETES MELLITUS WITHOUT COMPLIC 04/22/2017 VALENTIN ARTEAGA DO Ot K29.70 GASTRITIS, UNSPECIFIED, WITHOUT BLEEDING 04/22/2017 VALENTIN ARTEAGA DO Ot K59.00 CONSTIPATION, UNSPECIFIED 04/22/2017 VALENTIN ARTEAGA DO Ot R19.7 DIARRHEA, UNSPECIFIED 04/28/2017 LEO WALTON MD Ot E11.9 TYPE 2 DIABETES MELLITUS WITHOUT COMPLIC 04/28/2017 LEO WALTON MD Ot F43.10 POST-TRAUMATIC STRESS DISORDER, UNSPECIF 04/28/2017 LEO WALTON MD Ot I10 ESSENTIAL (PRIMARY) HYPERTENSION 04/28/2017 LEO WALTON MD Ot J44.9 CHRONIC OBSTRUCTIVE PULMONARY DISEASE, U 04/28/2017 LEO WALTON MD Ot R07.9 CHEST PAIN, UNSPECIFIED 05/14/2017 JOSÉ OCASIO APRN Ot G47.36 SLEEP RELATED HYPOVENTILATION IN CONDITI 05/15/2017 JOSÉ OCASIO APRN Ot G47.36 SLEEP RELATED HYPOVENTILATION IN CONDITI 05/16/2017 JOSÉ OCASIO APRN Ot G47.36 SLEEP RELATED HYPOVENTILATION IN CONDITI 05/16/2017 JOSÉ OCASIO APRN Ot G47.10 HYPERSOMNIA, UNSPECIFIED 05/16/2017 NINFA, JOSÉ R GLOST TILE SORTER Ot G47.36 SLEEP RELATED HYPOVENTILATION IN CONDITI 05/19/2017 LEO WALTON MD Ot E11.9 TYPE 2 DIABETES MELLITUS WITHOUT COMPLIC 05/19/2017 LEO WALTON MD Ot F43.10 POST-TRAUMATIC STRESS DISORDER, UNSPECIF 05/19/2017 LEO WALTON MD Ot I10 ESSENTIAL (PRIMARY) HYPERTENSION 05/19/2017 LEO WALTON MD Ot J44.9 CHRONIC OBSTRUCTIVE PULMONARY DISEASE, U 05/19/2017 LEO WALTON MD Ot R07.9 CHEST PAIN, UNSPECIFIED 05/21/2017 JOSÉ OCASIO GLOST TILE SORTER Ot G47.10 HYPERSOMNIA, UNSPECIFIED 05/21/2017 JOSÉ OCASIO GLOST TILE SORTER Ot G47.36 SLEEP RELATED HYPOVENTILATION IN CONDITI 05/25/2017 LEO WALTON MD Ot E11.9 TYPE 2 DIABETES MELLITUS WITHOUT COMPLIC 05/25/2017 LEO WALTON MD Ot F43.10 POST-TRAUMATIC STRESS DISORDER, UNSPECIF 05/25/2017 LEO WALTON MD Ot I10 ESSENTIAL (PRIMARY) HYPERTENSION 05/25/2017 LEO WALTON MD Ot J44.9 CHRONIC OBSTRUCTIVE PULMONARY DISEASE, U 05/25/2017 LEO WALTON MD Ot R07.9 CHEST PAIN, UNSPECIFIED 06/21/2017 LEO WALTON MD Ot E11.9 TYPE 2 DIABETES MELLITUS WITHOUT COMPLIC 06/21/2017 LEO WALTON MD Ot F43.10 POST-TRAUMATIC STRESS DISORDER, UNSPECIF 06/21/2017 LEO WALTON MD Ot I10 ESSENTIAL (PRIMARY) HYPERTENSION 06/21/2017 LEO WALTON MD Ot J44.9 CHRONIC OBSTRUCTIVE PULMONARY DISEASE, U 06/21/2017 LEO WALTON MD Ot R07.9 CHEST PAIN, UNSPECIFIED 07/16/2017 WHIT GANDHI Ot Z12.31 ENCNTR SCREEN MAMMOGRAM FOR MALIGNANT NE 07/20/2017 DASHA BOLAND, JOVANY Bailon Ot E11.40 TYPE 2 DIABETES MELLITUS WITH DIABETIC N 07/20/2017 DASHA BOLAND, JOVANY Bailon Ot E78.00 PURE HYPERCHOLESTEROLEMIA, UNSPECIFIED 07/20/2017 JOVANY LOU MD Ot E87.5 HYPERKALEMIA 07/20/2017 JOVANY LOU MD Ot F17.210 NICOTINE DEPENDENCE, CIGARETTES, UNCOMPL 07/20/2017 JOVANY LOU MD Ot F31.9 BIPOLAR DISORDER, UNSPECIFIED 07/20/2017 JOVANY LOU MD, Ot F41.9 ANXIETY DISORDER, UNSPECIFIED 07/20/2017 JOVANY LOU MD Ot F90.9 ATTENTION-DEFICIT HYPERACTIVITY DISORDER 07/20/2017 JOVANY LOU MD Ot I10 ESSENTIAL (PRIMARY) HYPERTENSION 07/20/2017 JOVANY LOU MD, Ot J44.9 CHRONIC OBSTRUCTIVE PULMONARY DISEASE, U 07/20/2017 JOVANY LOU MD, Ot K21.9 GASTRO-ESOPHAGEAL REFLUX DISEASE WITHOUT 07/20/2017 JOVANY LOU MD, Ot K59.00 CONSTIPATION, UNSPECIFIED 07/20/2017 JOVANY LOU MD, Ot M06.9 RHEUMATOID ARTHRITIS, UNSPECIFIED 07/20/2017 JOVANY LOU MD, Ot R10.12 LEFT UPPER QUADRANT PAIN 07/20/2017 JOVANY LOU MD, Ot Z79.4 FDC (CURRENT) USE OF INSULIN 07/20/2017 JOVANY LOU MD, Ot Z79.82 BIN PACKER (CURRENT) USE OF ASPIRIN 07/20/2017 JOVANY LOU MD, Ot Z87.59 PERSONAL HISTORY OF COMP OF PREG, CHLDBR 07/20/2017 JOVANY LOU MD, Ot Z88.0 ALLERGY STATUS TO PENICILLIN 07/20/2017 JOVANY LOU MD, Ot Z88.1 ALLERGY STATUS TO OTHER ANTIBIOTIC AGENT 07/20/2017 JOVANY LOU MD, Ot Z90.710 ACQUIRED ABSENCE OF BOTH CERVIX AND UTER 07/20/2017 JOVANY LOU MD, Ot Z91.040 LATEX ALLERGY STATUS 07/22/2017 JOVANY LOU MD, Ot E11.40 TYPE 2 DIABETES MELLITUS WITH DIABETIC N 07/22/2017 JOVANY LOU MD Ot E78.00 PURE HYPERCHOLESTEROLEMIA, UNSPECIFIED 07/22/2017 JOVANY LOU MD Ot E87.5 HYPERKALEMIA 07/22/2017 JOVANY LOU MD Ot F17.210 NICOTINE DEPENDENCE, CIGARETTES, UNCOMPL 07/22/2017 JOVANY LOU MD Ot F31.9 BIPOLAR DISORDER, UNSPECIFIED 07/22/2017 JOVANY LOU MD Ot F41.9 ANXIETY DISORDER, UNSPECIFIED 07/22/2017 JOVANY LOU MD Ot F90.9 ATTENTION-DEFICIT HYPERACTIVITY DISORDER 07/22/2017 JOVANY LOU MD Ot I10 ESSENTIAL (PRIMARY) HYPERTENSION 07/22/2017 JOVANY LOU MD Ot J44.9 CHRONIC OBSTRUCTIVE PULMONARY DISEASE, U 07/22/2017 JOVANY LOU MD, Ot K21.9 GASTRO-ESOPHAGEAL REFLUX DISEASE WITHOUT 07/22/2017 JOVANY LOU MD Ot K59.00 CONSTIPATION, UNSPECIFIED 07/22/2017 JOVANY LOU MD Ot M06.9 RHEUMATOID ARTHRITIS, UNSPECIFIED 07/22/2017 JOVANY LOU MD Ot R10.12 LEFT UPPER QUADRANT PAIN 07/22/2017 JOVANY LOU MD Ot Z79.4 BIN PACKER (CURRENT) USE OF INSULIN 07/22/2017 JOVANY LOU MD Ot Z79.82 BIN PACKER (CURRENT) USE OF ASPIRIN 07/22/2017 JOVANY LOU MD Ot Z87.59 PERSONAL HISTORY OF COMP OF PREG, CHLDBR 07/22/2017 JOVANY LOU MD Ot Z88.0 ALLERGY STATUS TO PENICILLIN 07/22/2017 JOVANY LOU MD Ot Z88.1 ALLERGY STATUS TO OTHER ANTIBIOTIC AGENT 07/22/2017 JOVANY LOU MD Ot Z90.710 ACQUIRED ABSENCE OF BOTH CERVIX AND UTER 07/22/2017 JOVANY LOU MD Ot Z91.040 LATEX ALLERGY STATUS 08/09/2017 WHIT GANDHI Ot Z12.31 ENCNTR SCREEN MAMMOGRAM FOR MALIGNANT NE 2017 WHIT GANDHI Ot Z12.31 ENCNTR SCREEN MAMMOGRAM FOR MALIGNANT NE 08/17/2017 WHIT GANDHI YUSRA Ot Z12.31 ENCNTR SCREEN MAMMOGRAM FOR MALIGNANT NE 08/27/2017 WHIT GANDHIP Ot R92.8 OTH ABN AND INCONCLUSIVE FINDINGS ON DX 08/31/2017 WHIT GANDHI YUSRA Ot R92.1 MAMMOGRAPHIC CALCIFCN FOUND ON DIAGNOSTI 09/07/2017 WHIT GANDHIP Ot Z12.31 ENCNTR SCREEN MAMMOGRAM FOR MALIGNANT NE 09/21/2017 WHIT GANDHI YUSRA Ot R92.1 MAMMOGRAPHIC CALCIFCN FOUND ON DIAGNOSTI 10/06/2017 GIANNI LIVINGSTON MD Ot E11.9 TYPE 2 DIABETES MELLITUS WITHOUT COMPLIC 10/06/2017 GIANNI LIVINGSTON MD Ot F43.10 POST-TRAUMATIC STRESS DISORDER, UNSPECIF 10/06/2017 GIANNI LIVINGSTON MD Ot I10 ESSENTIAL (PRIMARY) HYPERTENSION 10/06/2017 GIANNI LIVINGSTON MD Ot J44.9 CHRONIC OBSTRUCTIVE PULMONARY DISEASE, U 10/06/2017 GIANNI LIVINGSTON MD Ot R07.9 CHEST PAIN, UNSPECIFIED 10/26/2017 GIANNI LIVINGSTON MD Ot E11.9 TYPE 2 DIABETES MELLITUS WITHOUT COMPLIC 10/26/2017 GIANNI LIVINGSTON MD Ot F43.10 POST-TRAUMATIC STRESS DISORDER, UNSPECIF 10/26/2017 GIANNI LIVINGSTON MD Ot I10 ESSENTIAL (PRIMARY) HYPERTENSION 10/26/2017 GIANNI LIVINGSTON MD Ot J44.9 CHRONIC OBSTRUCTIVE PULMONARY DISEASE, U 10/26/2017 GIANNI LIVINGSTON MD Ot R07.9 CHEST PAIN, UNSPECIFIED Procedures Code Description [place] [address] ROUTINE VENIPUNCTURE 12/15/2012 23673 A1C (IN-HOUSE) 12/15/2012 77626 CMP 12/15/2012 [id number] GFR CALC (RESULT ONLY) 12/15/2012 70184 STREP A (IN-HOUSE) 01/13/2013 09016 A1C (IN-HOUSE) 04/10/2013 Results Test Result Range CBC With Differential/Platelet - 06/08/16 08:18 WBC 9.7 x10E3/uL 3.4-10.8 RBC 4.95 x10E6/uL 3.77-5.28 Hemoglobin 15.2 g/dL 11.1-15.9 Hematocrit 44.3 % 34.0-46.6 MCV 90 fL 79-97 MCH 30.7 pg 26.6-33.0 MCHC 34.3 g/dL 31.5-35.7 RDW 14.3 % 12.3-15.4 Platelets 242 x10E3/uL 150-379 Neutrophils 73 % Lymphs 20 % Monocytes 6 % Eos 1 % Basos 0 % Neutrophils (Absolute) 6.9 x10E3/uL 1.4-7.0 Lymphs (Absolute) 2.0 x10E3/uL 0.7-3.1 Monocytes(Absolute) 0.6 x10E3/uL 0.1-0.9 Eos (Absolute) 0.1 x10E3/uL 0.0-0.4 Baso (Absolute) 0.0 x10E3/uL 0.0-0.2 Immature Granulocytes 0 % Immature Grans (Abs) 0.0 x10E3/uL 0.0-0.1 Comp. Metabolic Panel (14) - 06/08/16 08:18 Glucose, Serum 86 mg/dL 65-99 BUN 4 mg/dL 6-24 Creatinine, Serum 0.53 mg/dL 0.57-1.00 eGFR If NonAfricn Am 112 mL/min/1.73 >59 eGFR If Africn Am 129 mL/min/1.73 >59 BUN/Creatinine Ratio 8 9-23 Sodium, Serum 131 mmol/L 134-144 Potassium, Serum 5.1 mmol/L 3.5-5.2 Chloride, Serum 92 mmol/L 96-106 Carbon Dioxide, Total 19 mmol/L 18-29 Calcium, Serum 9.6 mg/dL 8.7-10.2 Protein, Total, Serum 6.3 g/dL 6.0-8.5 Albumin, Serum 4.7 g/dL 3.5-5.5 Globulin, Total 1.6 g/dL 1.5-4.5 A/G Ratio 2.9 1.1-2.5 Bilirubin, Total 0.2 mg/dL 0.0-1.2 Alkaline Phosphatase, S 51 IU/L 39-117 AST (SGOT) 12 IU/L 0-40 ALT (SGPT) 8 IU/L 0-32 Lipid Panel - 06/08/16 08:18 Cholesterol, Total 96 mg/dL 100-199 Triglycerides 44 mg/dL 0-149 HDL Cholesterol 54 mg/dL >39 VLDL Cholesterol Scooby 9 mg/dL 5-40 LDL Cholesterol Calc 33 mg/dL 0-99 TSH - 06/08/16 08:18 TSH 1.650 uIU/mL 0.450-4.500 LIPID PANEL - 01/19/17 08:21 Cholesterol, Total 140 mg/dL 100-199 Triglycerides 47 mg/dL 0-149 HDL Cholesterol 73 mg/dL >39 VLDL Cholesterol Scooby 9 mg/dL 5-40 LDL Cholesterol Calc 58 mg/dL 0-99 CMP - 01/19/17 08:21 Glucose, Serum 88 mg/dL 65-99 BUN 8 mg/dL 6-24 Creatinine, Serum 0.48 mg/dL 0.57-1.00 eGFR If NonAfricn Am 115 mL/min/1.73 >59 eGFR If Africn Am 132 mL/min/1.73 >59 BUN/Creatinine Ratio 17 9-23 Sodium, Serum 136 mmol/L 134-144 Potassium, Serum 4.7 mmol/L 3.5-5.2 Chloride, Serum 91 mmol/L 96-106 Carbon Dioxide, Total 24 mmol/L 18-29 Calcium, Serum 10.1 mg/dL 8.7-10.2 Protein, Total, Serum 7.1 g/dL 6.0-8.5 Albumin, Serum 5.2 g/dL 3.5-5.5 Globulin, Total 1.9 g/dL 1.5-4.5 A/G Ratio 2.7 1.2-2.2 Bilirubin, Total 0.3 mg/dL 0.0-1.2 Alkaline Phosphatase, S 84 IU/L 39-117 AST (SGOT) 19 IU/L 0-40 ALT (SGPT) 26 IU/L 0-32 CBC With Differential/Platelet - 01/19/17 08:21 WBC 7.1 x10E3/uL 3.4-10.8 RBC 5.19 x10E6/uL 3.77-5.28 Hemoglobin 15.8 g/dL 11.1-15.9 Hematocrit 45.9 % 34.0-46.6 MCV 88 fL 79-97 MCH 30.4 pg 26.6-33.0 MCHC 34.4 g/dL 31.5-35.7 RDW 14.2 % 12.3-15.4 Platelets 305 x10E3/uL 150-379 Neutrophils 66 % Lymphs 28 % Monocytes 5 % Eos 1 % Basos 0 % Neutrophils (Absolute) 4.7 x10E3/uL 1.4-7.0 Lymphs (Absolute) 2.0 x10E3/uL 0.7-3.1 Monocytes(Absolute) 0.4 x10E3/uL 0.1-0.9 Eos (Absolute) 0.1 x10E3/uL 0.0-0.4 Baso (Absolute) 0.0 x10E3/uL 0.0-0.2 Immature Granulocytes 0 % Immature Grans (Abs) 0.0 x10E3/uL 0.0-0.1 Comp. Metabolic Panel (14) - 01/19/17 08:21 Glucose, Serum 88 mg/dL 65-99 BUN 8 mg/dL 6-24 Creatinine, Serum 0.48 mg/dL 0.57-1.00 eGFR If NonAfricn Am 115 mL/min/1.73 >59 eGFR If Africn Am 132 mL/min/1.73 >59 BUN/Creatinine Ratio 17 9-23 Sodium, Serum 136 mmol/L 134-144 Potassium, Serum 4.7 mmol/L 3.5-5.2 Chloride, Serum 91 mmol/L 96-106 Carbon Dioxide, Total 24 mmol/L 18-29 Calcium, Serum 10.1 mg/dL 8.7-10.2 Protein, Total, Serum 7.1 g/dL 6.0-8.5 Albumin, Serum 5.2 g/dL 3.5-5.5 Globulin, Total 1.9 g/dL 1.5-4.5 A/G Ratio 2.7 1.2-2.2 Bilirubin, Total 0.3 mg/dL 0.0-1.2 Alkaline Phosphatase, S 84 IU/L 39-117 AST (SGOT) 19 IU/L 0-40 ALT (SGPT) 26 IU/L 0-32 Lipid Panel - 01/19/17 08:21 Cholesterol, Total 140 mg/dL 100-199 Triglycerides 47 mg/dL 0-149 HDL Cholesterol 73 mg/dL >39 VLDL Cholesterol Scooby 9 mg/dL 5-40 LDL Cholesterol Calc 58 mg/dL 0-99 TSH - 01/19/17 08:21 TSH 1.170 uIU/mL 0.450-4.500 Complete blood count (CBC) with automated white blood cell (WBC) differential - 03/12/17 09:16 Blood leukocytes automated count (number/volume) 8.9 10*3/uL 4.3-11.0 Blood erythrocytes automated count (number/volume) 5.00 10*6/uL 4.35-5.85 Venous blood hemoglobin measurement (mass/volume) 15.7 g/dL 11.5-16.0 Blood hematocrit (volume fraction) 45 % 35-52 Automated erythrocyte mean corpuscular volume 89 [foz_us] 80-99 Automated erythrocyte mean corpuscular hemoglobin (mass per erythrocyte) 31 pg 25-34 Automated erythrocyte mean corpuscular hemoglobin concentration measurement ( mass/volume) 35 g/dL 32-36 Automated erythrocyte distribution width ratio 13.8 % 10.0-14.5 Automated blood platelet count (count/volume) 266 10*3/uL 130-400 Automated blood platelet mean volume measurement 9.6 [foz_us] 7.4-10.4 Automated blood neutrophils/100 leukocytes 73 % 42-75 Automated blood lymphocytes/100 leukocytes 19 % 12-44 Blood monocytes/100 leukocytes 6 % 0-12 Automated blood eosinophils/100 leukocytes 2 % 0-10 Automated blood basophils/100 leukocytes 0 % 0-10 Blood neutrophils automated count (number/volume) 6.5 10*3 1.8-7.8 Blood lymphocytes automated count (number/volume) 1.7 10*3 1.0-4.0 Blood monocytes automated count (number/volume) 0.5 10*3 0.0-1.0 Automated eosinophil count 0.1 10*3/uL 0.0-0.3 Automated blood basophil count (count/volume) 0.0 10*3/uL 0.0-0.1 PT panel in platelet poor plasma by coagulation assay - 03/12/17 09:16 Prothrombin time (PT) in platelet poor plasma by coagulation assay 12.1 s 12.2-14.7 INR in platelet poor plasma or blood by coagulation assay 0.9 0.8-1.4 Activated partial thromboplastin time (aPTT) in platelet poor plasma bycoagulation assay - 03/12/17 09:16 Activated partial thromboplastin time (aPTT) in platelet poor plasma bycoagulation assay 35 s 24-35 Comprehensive metabolic panel - 03/12/17 09:16 Serum or plasma sodium measurement (moles/volume) 130 mmol/L 135-145 Serum or plasma potassium measurement (moles/volume) 4.3 mmol/L 3.6-5.0 Serum or plasma chloride measurement (moles/volume) 95 mmol/L 98-107 Carbon dioxide 23 mmol/L 21-32 Serum or plasma anion gap determination (moles/volume) 12 mmol/L 5-14 Serum or plasma urea nitrogen measurement (mass/volume) 9 mg/dL 7-18 Serum or plasma creatinine measurement (mass/volume) 0.61 mg/dL 0.60-1.30 Serum or plasma urea nitrogen/creatinine mass ratio 15 NRG Serum or plasma creatinine measurement with calculation of estimated glomerular filtration rate > NRG Serum or plasma glucose measurement (mass/volume) 131 mg/dL 70-105 Serum or plasma calcium measurement (mass/volume) 9.7 mg/dL 8.5-10.1 Serum or plasma total bilirubin measurement (mass/volume) 0.2 mg/dL 0.1-1.0 Serum or plasma alkaline phosphatase measurement (enzymatic activity/volume) 63 U/L 40-136 Serum or plasma aspartate aminotransferase measurement (enzymatic activity/ volume) 19 U/L 5-34 Serum or plasma alanine aminotransferase measurement (enzymatic activity/volume ) 31 U/L 0-55 Serum or plasma protein measurement (mass/volume) 7.1 g/dL 6.4-8.2 Serum or plasma albumin measurement (mass/volume) 4.6 g/dL 3.2-4.5 Magnesium - 03/12/17 09:16 Magnesium 2.0 mg/dL 1.8-2.4 Serum or plasma troponin i.cardiac measurement (mass/volume) - 03/12/17 09:16 Serum or plasma troponin i.cardiac measurement (mass/volume) < ng/ mL <0.30 Myoglobin, serum - 03/12/17 09:16 Myoglobin, serum 16.9 ng/mL 10.0-92.0 Fibrin D-dimer FEU measurement in platelet poor plasma (mass/volume) - 09:16 Fibrin D-dimer FEU measurement in platelet poor plasma (mass/volume) 0.90 ug/mL 0.00-0.49 Serum or plasma troponin i.cardiac measurement (mass/volume) - 03/12/17 15:14 Serum or plasma troponin i.cardiac measurement (mass/volume) < ng/ mL <0.30 Serum or plasma troponin i.cardiac measurement (mass/volume) - 03/12/17 21:17 Serum or plasma troponin i.cardiac measurement (mass/volume) < ng/ mL <0.30 Capillary blood glucose measurement by glucometer (mass/volume) - 03/12/17 22: 18 Capillary blood glucose measurement by glucometer (mass/volume) 97 mg/dL 70-110 Complete blood count (CBC) with automated white blood cell (WBC) differential - 03/13/17 03:27 Blood leukocytes automated count (number/volume) 7.7 10*3/uL 4.3-11.0 Blood erythrocytes automated count (number/volume) 4.86 10*6/uL 4.35-5.85 Venous blood hemoglobin measurement (mass/volume) 15.1 g/dL 11.5-16.0 Blood hematocrit (volume fraction) 43 % 35-52 Automated erythrocyte mean corpuscular volume 89 [foz_us] 80-99 Automated erythrocyte mean corpuscular hemoglobin (mass per erythrocyte) 31 pg 25-34 Automated erythrocyte mean corpuscular hemoglobin concentration measurement ( mass/volume) 35 g/dL 32-36 Automated erythrocyte distribution width ratio 13.8 % 10.0-14.5 Automated blood platelet count (count/volume) 254 10*3/uL 130-400 Automated blood platelet mean volume measurement 9.5 [foz_us] 7.4-10.4 Automated blood neutrophils/100 leukocytes 53 % 42-75 Automated blood lymphocytes/100 leukocytes 35 % 12-44 Blood monocytes/100 leukocytes 8 % 0-12 Automated blood eosinophils/100 leukocytes 3 % 0-10 Automated blood basophils/100 leukocytes 1 % 0-10 Blood neutrophils automated count (number/volume) 4.1 10*3 1.8-7.8 Blood lymphocytes automated count (number/volume) 2.7 10*3 1.0-4.0 Blood monocytes automated count (number/volume) 0.6 10*3 0.0-1.0 Automated eosinophil count 0.2 10*3/uL 0.0-0.3 Automated blood basophil count (count/volume) 0.1 10*3/uL 0.0-0.1 Lipid 1996 panel - 03/13/17 03:27 Serum or plasma triglyceride measurement (mass/volume) 56 mg/dL <150 Serum or plasma cholesterol measurement (mass/volume) 143 mg/dL < 200 Serum or plasma cholesterol in HDL measurement (mass/volume) 60 mg/ dL 40-60 Cholesterol in LDL [mass/volume] in serum or plasma by direct assay 64 mg/dL 1-129 Serum or plasma cholesterol in VLDL measurement (mass/volume) 11 mg/ dL 5-40 Comprehensive metabolic panel - 03/13/17 03:27 Serum or plasma sodium measurement (moles/volume) 135 mmol/L 135-145 Serum or plasma potassium measurement (moles/volume) 3.9 mmol/L 3.6-5.0 Serum or plasma chloride measurement (moles/volume) 100 mmol/L 98-107 Carbon dioxide 26 mmol/L 21-32 Serum or plasma anion gap determination (moles/volume) 9 mmol/L 5-14 Serum or plasma urea nitrogen measurement (mass/volume) 9 mg/dL 7-18 Serum or plasma creatinine measurement (mass/volume) 0.56 mg/dL 0.60-1.30 Serum or plasma urea nitrogen/creatinine mass ratio 16 NRG Serum or plasma creatinine measurement with calculation of estimated glomerular filtration rate > NRG Serum or plasma glucose measurement (mass/volume) 100 mg/dL 70-105 Serum or plasma calcium measurement (mass/volume) 9.5 mg/dL 8.5-10.1 Serum or plasma total bilirubin measurement (mass/volume) 0.3 mg/dL 0.1-1.0 Serum or plasma alkaline phosphatase measurement (enzymatic activity/volume) 60 U/L 40-136 Serum or plasma aspartate aminotransferase measurement (enzymatic activity/ volume) 15 U/L 5-34 Serum or plasma alanine aminotransferase measurement (enzymatic activity/volume ) 26 U/L 0-55 Serum or plasma protein measurement (mass/volume) 6.3 g/dL 6.4-8.2 Serum or plasma albumin measurement (mass/volume) 4.3 g/dL 3.2-4.5 Serum or plasma troponin i.cardiac measurement (mass/volume) - 03/13/17 03:27 Serum or plasma troponin i.cardiac measurement (mass/volume) < ng/ mL <0.30 Capillary blood glucose measurement by glucometer (mass/volume) - 03/13/17 05: 28 Capillary blood glucose measurement by glucometer (mass/volume) 107 mg/dL 70-110 Complete urinalysis with reflex to culture - 07/20/17 09:42 Urine color determination YELLOW NRG Urine clarity determination CLEAR NRG Urine pH measurement by test strip 8 5-9 Specific gravity of urine by test strip 1.015 1.016- 1.022 Urine protein assay by test strip, semi-quantitative NEGATIVE NEGATIVE Urine glucose detection by automated test strip NEGATIVE NEGATIVE Erythrocytes detection in urine sediment by light microscopy NEGATIVE NEGATIVE Urine ketones detection by automated test strip NEGATIVE NEGATIVE Urine nitrite detection by test strip NEGATIVE NEGATIVE Urine total bilirubin detection by test strip NEGATIVE NEGATIVE Urine urobilinogen measurement by automated test strip (mass/volume) NORMAL NORMAL Urine leukocyte esterase detection by dipstick NEGATIVE NEGATIVE Automated urine sediment erythrocyte count by microscopy (number/high power field) RARE NRG Automated urine sediment leukocyte count by microscopy (number/high power field ) NONE NRG Bacteria detection in urine sediment by light microscopy NEGATIVE NRG Squamous epithelial cells detection in urine sediment by light microscopy 5-10 NRG Crystals detection in urine sediment by light microscopy NONE NRG Casts detection in urine sediment by light microscopy NONE NRG Mucus detection in urine sediment by light microscopy NEGATIVE NRG Complete urinalysis with reflex to culture NO NRG Complete blood count (CBC) with automated white blood cell (WBC) differential - 07/20/17 10:10 Blood leukocytes automated count (number/volume) 9.8 10*3/uL 4.3-11.0 Blood erythrocytes automated count (number/volume) 5.24 10*6/uL 4.35-5.85 Venous blood hemoglobin measurement (mass/volume) 16.7 g/dL 11.5-16.0 Blood hematocrit (volume fraction) 46 % 35-52 Automated erythrocyte mean corpuscular volume 88 [foz_us] 80-99 Automated erythrocyte mean corpuscular hemoglobin (mass per erythrocyte) 32 pg 25-34 Automated erythrocyte mean corpuscular hemoglobin concentration measurement ( mass/volume) 36 g/dL 32-36 Automated erythrocyte distribution width ratio 13.6 % 10.0-14.5 Automated blood platelet count (count/volume) 265 10*3/uL 130-400 Automated blood platelet mean volume measurement 9.8 [foz_us] 7.4-10.4 Automated blood neutrophils/100 leukocytes 73 % 42-75 Automated blood lymphocytes/100 leukocytes 21 % 12-44 Blood monocytes/100 leukocytes 5 % 0-12 Automated blood eosinophils/100 leukocytes 0 % 0-10 Automated blood basophils/100 leukocytes 0 % 0-10 Blood neutrophils automated count (number/volume) 7.2 10*3 1.8-7.8 Blood lymphocytes automated count (number/volume) 2.0 10*3 1.0-4.0 Blood monocytes automated count (number/volume) 0.5 10*3 0.0-1.0 Automated eosinophil count 0.0 10*3/uL 0.0-0.3 Automated blood basophil count (count/volume) 0.0 10*3/uL 0.0-0.1 Comprehensive metabolic panel - 07/20/17 10:10 Serum or plasma sodium measurement (moles/volume) 132 mmol/L 135-145 Serum or plasma potassium measurement (moles/volume) 5.6 mmol/L 3.6-5.0 Serum or plasma chloride measurement (moles/volume) 97 mmol/L 98-107 Carbon dioxide 26 mmol/L 21-32 Serum or plasma anion gap determination (moles/volume) 9 mmol/L 5-14 Serum or plasma urea nitrogen measurement (mass/volume) 8 mg/dL 7-18 Serum or plasma creatinine measurement (mass/volume) 0.60 mg/dL 0.60-1.30 Serum or plasma urea nitrogen/creatinine mass ratio 13 NRG Serum or plasma creatinine measurement with calculation of estimated glomerular filtration rate > NRG Serum or plasma glucose measurement (mass/volume) 97 mg/dL 70-105 Serum or plasma calcium measurement (mass/volume) 10.2 mg/dL 8.5-10.1 Serum or plasma total bilirubin measurement (mass/volume) 0.2 mg/dL 0.1-1.0 Serum or plasma alkaline phosphatase measurement (enzymatic activity/volume) 56 U/L 40-136 Serum or plasma aspartate aminotransferase measurement (enzymatic activity/ volume) 28 U/L 5-34 Serum or plasma alanine aminotransferase measurement (enzymatic activity/volume ) 34 U/L 0-55 Serum or plasma protein measurement (mass/volume) 7.8 g/dL 6.4-8.2 Serum or plasma albumin measurement (mass/volume) 4.9 g/dL 3.2-4.5 Lipase - 07/20/17 10:10 Lipase 25 U/L 8-78 Serum or plasma C reactive protein measurement (mass/volume) - 07/20/17 10:10 Serum or plasma C reactive protein measurement (mass/volume) 0.03 mg /dL 0.00-0.50 PANEL (PROFILE 1) - 09/30/17 15:59 Prescribed Drug 1 [place]ora(TM) NRG Creatinine 6.8 mg/dL > or=20.0 pH 6.21 4.5 - 9.0 Oxidant NEGATIVE mcg/mL <200 Amphetamines NEGATIVE ng/mL <500 medMATCH Amphetamines INCONSISTENT NRG Benzodiazepines POSITIVE ng/mL <100 Marijuana Metabolite NEGATIVE ng/mL <20 medMATCH Marijuana Metab CONSISTENT NRG Cocaine Metabolite NEGATIVE ng/mL <150 medMATCH Cocaine Metab CONSISTENT NRG Opiates POSITIVE ng/mL <100 Oxycodone NEGATIVE ng/mL <100 medMATCH Oxycodone CONSISTENT NRG COMMENT NRG Alphahydroxyalprazolam NEGATIVE ng/mL <25 medMATCH aOH alprazolam CONSISTENT NRG Alphahydroxymidazolam NEGATIVE ng/mL <50 medMATCH aOH midazolam CONSISTENT NRG Alphahydroxytriazolam NEGATIVE ng/mL <50 medMATCH aOH triazolam CONSISTENT NRG Aminoclonazepam NEGATIVE ng/mL <25 medMATCH Aminoclonazepam CONSISTENT NRG Hydroxyethylflurazepam NEGATIVE ng/mL <50 medMATCH OH,Et flurazepam CONSISTENT NRG Lorazepam 668 ng/mL <50 medMATCH Lorazepam CONSISTENT NRG Nordiazepam NEGATIVE ng/mL <50 medMATCH Nordiazepam CONSISTENT NRG Oxazepam NEGATIVE ng/mL <50 medMATCH Oxazepam CONSISTENT NRG Temazepam NEGATIVE ng/mL <50 medMATCH Temazepam CONSISTENT NRG Codeine NEGATIVE ng/mL <50 medMATCH Codeine CONSISTENT NRG Hydrocodone 71 ng/mL <50 medMATCH Hydrocodone CONSISTENT NRG Hydromorphone 56 ng/mL <50 medMATCH Hydromorphone CONSISTENT NRG Morphine NEGATIVE ng/mL <50 medMATCH Morphine CONSISTENT NRG Norhydrocodone 259 ng/mL <50 medMATCH Norhydrocodone CONSISTENT NRG Prescribed Drug 2 Adderall(TM) NRG Prescribed Drug 3 Lorazepam NRG Specific Moran 1.003 > or=1.003 Barbiturates POSITIVE ng/mL <300 Methadone Metabolite NEGATIVE ng/mL <100 medMATCH Methadone Metab CONSISTENT NRG Phencyclidine NEGATIVE ng/mL <25 medMATCH Phencyclidine CONSISTENT NRG Amobarbital NEGATIVE ng/mL <100 medMATCH Amobarbital CONSISTENT NRG Butalbital 3026 ng/mL <100 medMATCH Butalbital INCONSISTENT NRG Pentobarbital NEGATIVE ng/mL <100 medMATCH Pentobarbital CONSISTENT NRG Phenobarbital NEGATIVE ng/mL <100 medMATCH Phenobarbital CONSISTENT NRG Secobarbital NEGATIVE ng/mL <100 medMATCH Secobarbital CONSISTENT NRG TSH - 11/04/17 16:19 TSH 2.07 mIU/L NRG BNP - 11/04/17 16:19 B TYPE NATRIURETIC PEPTIDE (BNP) 36 pg/mL <100 Complete blood count (CBC) with automated white blood cell (WBC) differential - 11/18/17 06:55 Blood leukocytes automated count (number/volume) 8.4 10*3/uL 4.3-11.0 Blood erythrocytes automated count (number/volume) 4.99 10*6/uL 4.35-5.85 Venous blood hemoglobin measurement (mass/volume) 16.1 g/dL 11.5-16.0 Blood hematocrit (volume fraction) 43 % 35-52 Automated erythrocyte mean corpuscular volume 87 [foz_us] 80-99 Automated erythrocyte mean corpuscular hemoglobin (mass per erythrocyte) 32 pg 25-34 Automated erythrocyte mean corpuscular hemoglobin concentration measurement ( mass/volume) 37 g/dL 32-36 Automated erythrocyte distribution width ratio 13.4 % 10.0-14.5 Automated blood platelet count (count/volume) 260 10*3/uL 130-400 Automated blood platelet mean volume measurement 9.6 [foz_us] 7.4-10.4 Automated blood neutrophils/100 leukocytes 53 % 42-75 Automated blood lymphocytes/100 leukocytes 36 % 12-44 Blood monocytes/100 leukocytes 9 % 0-12 Automated blood eosinophils/100 leukocytes 2 % 0-10 Automated blood basophils/100 leukocytes 0 % 0-10 Blood neutrophils automated count (number/volume) 4.5 10*3 1.8-7.8 Blood lymphocytes automated count (number/volume) 3.0 10*3 1.0-4.0 Blood monocytes automated count (number/volume) 0.8 10*3 0.0-1.0 Automated eosinophil count 0.2 10*3/uL 0.0-0.3 Automated blood basophil count (count/volume) 0.0 10*3/uL 0.0-0.1 Encounters ACCT No. Visit Date/Time Discharge Status Pt. Type Provider Facility Loc./Unit Complaint [id number] 07/06/2013 14:50:00 07/06/2013 23:59:59 CLS Outpatient JAKI MEDINA MD [id number] 04/10/2013 15:56:00 04/10/2013 23:59:59 CLS Outpatient JAKI MEDINA MD [id number] 04/10/2013 15:56:00 04/10/2013 23:59:59 CLS Outpatient JAKI MEDINA MD [id number] 03/09/2013 11:00:00 03/09/2013 23:59:59 CLS Outpatient JAKI MEDINA MD [id number] 01/13/2013 15:32:00 01/13/2013 23:59:59 CLS Outpatient PARKS SOFIA COURTNEY [id number] 12/15/2012 13:26:00 Document Registration [id number] 12/18/2014 04:21:29 ACT Document Registration [id number] 11/04/2017 15:40:00 11/04/2017 23:59:59 CLS Outpatient WHIT GANDHI APRN [facility] [id number] 11/04/2017 15:40:00 Document Registration [id number] 09/30/2017 15:20:00 Document Registration [id number] 01/19/2017 08:00:00 Document Registration [id number] 01/20/2017 08:36:00 Document Registration [id number] 10/05/2017 07:28:00 10/05/2017 23:59:59 CLS Outpatient GIANNI LIVINGSTON MD [facility] LAB J44.9 R07.9 E13.9 I10 F43.10 [id number] 08/30/2017 13:34:00 08/30/2017 23:59:59 CLS Outpatient WHIT GANDHI [facility] RAD ABN MAMMO [id number] 08/16/2017 14:37:00 08/16/2017 23:59:59 CLS Outpatient WHIT GANDHI [facility] RAD FIBROCYSTIC DISEASE [id number] 07/20/2017 08:44:00 07/20/2017 12:39:00 DIS Emergency JOVANY LOU MD [facility] ER STOMACH CRAMPS [id number] 05/24/2017 07:18:00 05/24/2017 23:59:59 CLS Outpatient LEO WALTON MD [facility] CARD COPD [id number] 05/15/2017 19:40:00 05/16/2017 06:31:00 DIS Outpatient JOSÉ OCASIO APRN [facility] SLEEP OBSERVED APNEAS [id number] 04/26/2017 08:36:00 04/26/2017 23:59:59 CLS Outpatient LEO WALTON MD [facility] CARD COPD,CHEST PAIN [id number] 04/16/2017 15:15:00 04/16/2017 17:45:00 DIS Outpatient WHIT GANDHI [facility] SLEEP G47.33 OBSTRUCTIVE SLEEP APNEA [id number] 03/12/2017 11:51:00 03/13/2017 11:37:00 DIS Inpatient ASHISH BOLAND, EDE Menendez [facility] 4TH CHEST PAIN [id number] 03/06/2016 13:01:00 03/06/2016 14:15:00 DIS Emergency CINTHIA CARABALLO APRN [facility] ER FALL/HEAD INJURY [id number] 11/05/2015 09:39:00 11/05/2015 23:59:59 CLS Outpatient VALENTIN ARTEAGA DO [facility] SDC SCREENING,REFLEX [id number] 10/31/2015 05:51:00 10/31/2015 16:00:00 DIS Outpatient VALENTIN ARTEAGA DO [facility] PREOP SCREENING,REFLEX [id number] 06/28/2015 09:53:00 06/28/2015 14:40:00 DIS Emergency JOVANY LOU MD [facility] ER POSS MED REACTION THROAT TONGUE SWELLING [id number] 12/18/2014 04:20:00 12/18/2014 06:04:00 DIS Emergency JUSTIN LEVINE MD [facility] ER POPPED NECK-HAD NECK SURGERY THIS YEAR [id number] 08/17/2014 13:35:00 08/17/2014 23:59:59 CLS Outpatient WAYLON ZAIDI MD [facility] RAD LUMBAR RADICULOPATHY [id number] 03/26/2014 12:10:00 03/26/2014 14:22:00 DIS Outpatient TUCKER LESLIE MD [facility] CARD LUMBAR POST LAMINECTOMY SYNDROME [id number] 06/26/2013 07:54:00 06/26/2013 23:59:59 CLS Outpatient RICK MELENDREZ MD [facility] SDC DYSPHASIA [id number] 06/22/2013 13:15:00 06/22/2013 23:59:59 CLS Outpatient RICK MELENDREZ MD [facility] PREOP DYSPHASIA [id number] 11/18/2017 06:49:00 ACT Emergency JOVANY LOU MD [facility] ER CAN'T LIFT RT ARM,NUMB [id number] 07/09/2012 10:17:00 Document Registration [id number] 07/06/2012 06:02:00 Document Registration [id number] 06/30/2012 10:33:00 Document Registration [id number] 09/17/2011 17:53:00 Document Registration [id number] 06/22/2011 14:41:00 Document Registration [id number] 06/11/2011 10:02:00 Document Registration [id number] 03/11/2011 13:34:00 Document Registration [id number] 10/28/2010 08:20:00 Document Registration [id number] 04/29/2010 13:23:00 Document Registration [id number] 06/18/2009 13:00:00 Document Registration [id number] 06/09/2016 08:40:00 Document Registration
--- NOTE | 2017-11-18 07:47 | Diagnostic Imaging Report ---
EXAMINATION: Portable erect AP chest obtained at 712H. INDICATION: CVA, weakness The heart size is within normal limits and stable when compared to 03/12/2017. The lungs are clear. There is no sign of failure, pneumonia or a pleural effusion. Mediastinum is not widened. The osseous structures are intact. There is an orthopedic plate and screw fixation device overlying the lower cervical spine. IMPRESSION: There is no evidence for an acute cardiopulmonary abnormality. Dictated by: Dictated on workstation # [id number]
--- NOTE | 2017-11-18 07:55 | Diagnostic Imaging Report ---
CT of the head without contrast at 713 hours. INDICATION: CVA. Contiguous axial sections were taken through the skull. FINDINGS: There is no mass, shift of midline or hemorrhage to suggest an acute intracranial abnormality. There is no sign of an asymmetric hyperdense vessel. The ventricles are not abnormally dilated and similar in size to the prior exam 03/06/2016. The mild cortical atrophy seen previously is again evident and no different. The bone windows show no sign of a fracture or destructive lesion. The orbits are symmetrical and within normal limits. The sinuses are generally clear. IMPRESSION: 1. There is no evidence for an acute intracranial abnormality. When compared to the prior study, there has been no significant change. 2. If clinical concern regarding an acute abnormality persists, then either MRI or CTA of the head would be recommended for further study. 3. These results were discussed with Dr. Joni Coello. Dictated by: Dictated on workstation # [id number]
[2017-11-18 08:00] VITALS: BP 165/90
--- NOTE | 2017-11-18 08:06 | ED Neurological Problem ---
General Chief Complaint: Neuro-Stroke Like Symptoms Stated Complaint: CAN'T LIFT RT ARM,NUMB Nursing Triage Note: pt presents to ed with complaints of r arm and r leg weakness, numbness since 0130 when she awoke from sleeping. PT reports she was normal when she went to bed at 2300. Pt also reports feeling a little confused. Nursing Sepsis Screen: No Definite Risk Source: patient Exam Limitations: no limitations History of Present Illness Date Seen by Provider: Nov 18, 2017 Time Seen by Provider: 06:49 Initial Comments This 52-year-old woman presents to the emergency room with a nearly flaccid right upper extremity and a weak right lower extremity upon waking 01:30. Last known well time was at 23:00. Patient is notably hypertensive upon arrival with systolic blood pressures in the 170s and 180s. She also has some facial asymmetry which is stated as chronic and unchanged her her significant other. Initial NIH stroke score is 7. Stroke activation was paged and patient was taken promptly to CT. Fingerstick blood sugar was 96. She complains of some blurred vision with no described visual field cut deficits. Patient is compliant with her medications and took her medications yesterday and this morning. Patient was able to ambulate to her exam room on her own power. Allergies and Home Medications Allergies Coded Allergies: Penicillins (Verified Allergy, Unknown, 03/12/17) cefdinir (Verified Allergy, Unknown, 03/12/17) diphenhydramine (Verified Allergy, Unknown, 03/12/17) latex (Verified Allergy, Unknown, 03/12/17) propoxyphene napsylate (Unverified Allergy, Unknown, 07/06/12) Home Medications Albuterol Sulfate 2.5 Mg/3 Ml Vial.neb, 2.5 MG NEB Q4H PRN for SHORTNESS OF BREATH, (Reported) Albuterol Sulfate 18 Gm Hfa.aer.ad, 2 PUFF INH Q4H PRN for SHORTNESS OF BREATH, (Reported) Aspirin 81 Mg Tablet.dr, 81 MG PO DAILY Prescribed by: CÉSAR IZQUIERDO on 03/13/17 1118 Baclofen 20 Mg Tablet, 20 MG PO 0800,1500,2100, (Reported) Benztropine Mesylate 0.5 Mg Tablet, 0.5 MG PO 0800,1600, (Reported) Buspirone HCl 15 Mg Tablet, 15 MG PO 0800,1500,2100, (Reported) Butalb/Acetaminophen/Caffeine 1 Each Tablet, 1 TAB PO Q6H PRN for HEADACHE, ( Reported) Calcium Carbonate/Vitamin D3 1 Each Tablet, 1 TAB PO DAILY, (Reported) Cetirizine HCl 10 Mg Tablet, 10 MG PO DAILY, (Reported) Clonidine HCl 0.1 Mg Tablet, 0.1 MG PO 0800,1500,2100, (Reported) Dextroamphetamine/Amphetamine 20 Mg Cap.er.24h, 20 MG PO DAILY, (Reported) Dicyclomine HCl 20 Mg Tablet, 20 MG PO QID, (Reported) Esomeprazole Magnesium 40 Mg Capsule.dr, 40 MG PO DAILY, (Reported) Fluticasone Propionate 16 Gm [place].susp, 2 SPRAY NS DAILY, (Reported) Fluticasone/Vilanterol 1 Each Blst.w.dev, 1 PUFF INH DAILY, (Reported) Folic Acid/Mv,Fe,Other Min 1 Each Tablet, 1 TAB PO DAILY, (Reported) Gabapentin 800 Mg Tablet, 800 MG PO 0800,1500,2100, (Reported) Hydrocodone Bit/Acetaminophen 1 Each Tablet, 1 TAB PO TID PRN for PAIN-MODERATE, (Reported) Ibuprofen 600 Mg Tablet, 600 MG PO 0800,1400,1800, (Reported) Insulin Detemir 100 Unit/1 Ml Insuln.pen, 7 UNITS SC HS, (Reported) L.acidoph & Paracasei,B.lactis 1 Each Capsule, 1 CAP PO DAILY, (Reported) Lamotrigine 100 Mg Tablet, 100 MG PO BID, (Reported) Lisinopril 30 Mg Tablet, 30 MG PO DAILY, (Reported) Lorazepam 2 Mg Tablet, 2 MG PO 0800,1200,1600, (Reported) Loxapine Succinate 10 Mg Capsule, 10 MG PO BID, (Reported) Magnesium Carbonate/Al Hydrox 1 Each Tab.chew, 4 TAB.CHEW PO ACHS, (Reported) Magnesium Oxide 400 Mg Tablet, 400 MG PO DAILY, (Reported) Metformin HCl 1,000 Mg Tablet, 1,000 MG PO BID WITH MEALS, (Reported) Metoprolol Tartrate 50 Mg Tablet, 50 MG PO BID Prescribed by: CÉSAR IZQUIERDO on 03/13/17 1118 Montelukast Sodium 10 Mg Tablet, 10 MG PO HS, (Reported) Polyethylene Glycol 3350 255 Gm Powder, 17 GM PO DAILY, (Reported) Simvastatin 10 Mg Tablet, 10 MG PO 1800, (Reported) Trazodone HCl 100 Mg Tablet, 100 MG PO HS, (Reported) Umeclidinium [place] 62.5 Mcg Blst.w.dev, 1 PUFF INH DAILY, (Reported) Patient Home Medication List Home Medication List Reviewed: Yes Review of Systems Constitutional: no symptoms reported Eyes: Blurred Vision Ears, Nose, Mouth, Throat: no symptoms reported Respiratory: no symptoms reported Cardiovascular: see HPI Gastrointestinal: no symptoms reported Genitourinary: no symptoms reported : No Musculoskeletal: no symptoms reported Skin: no symptoms reported Psychiatric/Neurological: See HPI Endocrine: No Symptoms Reported Hematologic/Lymphatic: No Symptoms Reported Past Fdxfmoa-Zhmacw-Flohws Hx Past Med/Social Hx: Reviewed and Corrections made Patient Social History Alcohol Use: Denies Use Recreational Drug Use: No (SMOKES 1 PPD) Smoking Status: Current Everyday Smoker Type Used: Cigarettes Recent Foreign Travel: No Contact w/Someone Who Travel: No Recent Infectious Disease Expo: No Recent Hopitalizations: No Immunizations Up To Date Tetanus Booster (TDap): Unknown Date of Pneumonia Vaccine: Jun 26, 2012 Date of Influenza Vaccine: Jul 07, 2012 Seasonal Allergies Seasonal Allergies: Yes Past Medical History Surgeries: Yes (c/s x3, bilat knee scope, breast bx, bilat ankle sx, right foot fx, ) Abdominal, Section, Hysterectomy, Orthopedic Respiratory: Yes Asthma, Chronic Bronchitis, COPD Currently Using CPAP: No Currently Using BIPAP: No Cardiac: Yes High Cholesterol, Hypertension Neurological: Yes (neuropathy hands/feet, fibromyalgia, Hayes's palsy) Neuropathy 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: Yes Female 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: 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 Genitourinary: No Gastrointestinal: Yes (gastritis ) Abdominal Hernia, Gastroesophageal Reflux, Irritable Bowel Musculoskeletal: Yes Degenerate Disk Disease, Osteoporosis, Arthritis, Fibromyalgia, Rheumatoid Arthritis Endocrine: Yes Diabetes, Insulin dep HEENT: Yes Cataract Loss of Vision: Denies Hearing Impairment: Hard of Hearing Cancer: No Psychosocial: Yes ADD/ADHD, Anxiety, Bipolar, Depression Integumentary: No Blood Disorders: No Family Medical History No Pertinent Family Hx Physical Exam Vital Signs Vital Signs - First Documented 11/18/17 07:42 Temp 97.6 Pulse 80 Resp 20 B/P (MAP) 170/103 (125) Pulse Ox 100 Capillary Refill : Less Than 3 Seconds Height, Weight, BMI Height: 5'4.00" Weight: 110lbs.0.0oz.49.293538ab; 18.6 BMI Method:Stated General Appearance: WD/WN, no apparent distress, thin HEENT: PERRL/EOMI, normal ENT inspection Neck: normal inspection Respiratory: lungs clear, normal breath sounds, no respiratory distress, no accessory muscle use Cardiovascular: regular rate, rhythm, no edema, no murmur Gastrointestinal: normal bowel sounds, non tender, soft Back: normal inspection Extremities: normal inspection, no pedal edema Neurologic/Psychiatric: alert, oriented x 3, other (mood is frustrated. Facial asymmetry stated as chronic and unchanged) Crainal Nerves: normal hearing, PERRL, abnormal speech (expressive speech is clear but delayed) Coordination/Gait: normal finger to nose (with the left hand), abnormal gait ( slight asymmetry to her gait) Motor/Sensory: sensory deficit (right hand), weak motor strength RUE, weak motor strength RLE Skin: normal color, warm/dry Stroke NIH Stroke Scale Assessment Select: Initial Level of Consciousness: 0=Alert (0), Level of Consciousness- Questions: 0=Answers both month/age (0), LOC Commands: 0=Performs both tasks (0) , Gaze: Normal (0), Visual [place]: 0=No visual loss (0), Facial Movement ( Facial Paresis): 0=Normal symmetrical mnt (0), Motor Function-Arms Right: 2= Some effort/gravity (2), Motor Function-Arms Left: 0=No drift (0), Motor Function-Legs Right: 2=Some effort/gravity (2), Motor Function-Legs Left: 0=No drift (0), Limb Ataxia: 0=Absent (0), Sensory: 1=Mild to Moderate loss right hand (1), Best Language: 1=Mild to moderat aphasia speech is delayed (1), Dysarthria: 0=Normal (0), Extinction & Inattention: 1=Visual,tactile,auditory patient had difficulty identifying her right lower extremity (1), Total: 7 Progress/Results/Core Measures Results/Orders Lab Results Laboratory Tests Test 11/18/17 06:55 11/18/17 07:16 Range/Units White Blood Count 8.4 4.3-11.0 10^3/uL Red Blood Count 4.99 4.35-5.85 10^6/uL Hemoglobin 16.1 H 11.5-16.0 G/DL Hematocrit 43 35-52 % Mean Corpuscular Volume 87 80-99 FL Mean Corpuscular Hemoglobin 32 25-34 PG Mean Corpuscular Hemoglobin Concent 37 H 32-36 G/DL Red Cell Distribution Width 13.4 10.0-14.5 % Platelet Count 260 130-400 10^3/uL Mean Platelet Volume 9.6 7.4-10.4 FL Neutrophils (%) (Auto) 53 42-75 % Lymphocytes (%) (Auto) 36 12-44 % Monocytes (%) (Auto) 9 0-12 % Eosinophils (%) (Auto) 2 0-10 % Basophils (%) (Auto) 0 0-10 % Neutrophils # (Auto) 4.5 1.8-7.8 X 10^3 Lymphocytes # (Auto) 3.0 1.0-4.0 X 10^3 Monocytes # (Auto) 0.8 0.0-1.0 X 10^3 Eosinophils # (Auto) 0.2 0.0-0.3 10^3/uL Basophils # (Auto) 0.0 0.0-0.1 10^3/uL Prothrombin Time 12.2 12.2-14.7 SEC INR Comment 0.9 0.8-1.4 Activated Partial Thromboplast Time 38 H 24-35 SEC D-Dimer 0.69 H 0.00-0.49 UG/ML Sodium Level 128 L 135-145 MMOL/L Potassium Level 4.3 3.6-5.0 MMOL/L Chloride Level 92 L 98-107 MMOL/L Carbon Dioxide Level 24 21-32 MMOL/L Anion Gap 12 5-14 MMOL/L Blood Urea Nitrogen 8 7-18 MG/DL Creatinine 0.60 0.60-1.30 MG/DL Estimat Glomerular Filtration Rate > 60 BUN/Creatinine Ratio 13 Glucose Level 87 70-105 MG/DL Calcium Level 10.3 H 8.5-10.1 MG/DL Total Bilirubin 0.4 0.1-1.0 MG/DL Aspartate Amino Transf (AST/SGOT) 21 5-34 U/L Alanine Aminotransferase (ALT/SGPT) 34 0-55 U/L Alkaline Phosphatase 55 40-136 U/L Troponin I < 0.30 <0.30 NG/ML Total Protein 7.2 6.4-8.2 GM/DL Albumin 4.8 H 3.2-4.5 GM/DL Glucometer 96 70-110 MG/DL My Orders Orders - JONI COELLO MD Ct Head Wo-R/O Stroke (11/18/17 07:03) Chest 1 View, Ap/Pa Only (11/18/17 07:03) Cbc With Automated Diff (11/18/17 07:08) Protime With Inr (11/18/17 07:08) Partial Thromboplastin Time (11/18/17 07:08) Comprehensive Metabolic Panel (11/18/17 07:08) Fibrin Degradation Products (11/18/17 07:08) Troponin I (11/18/17 07:08) Ekg Tracing (11/18/17 07:08) Accucheck Stat ONCE (11/18/17 07:08) Saline Lock/Iv-Start (11/18/17 07:08) Saline Lock/Iv-Start (11/18/17 07:08) Vital Signs Stroke Patient Q15M (11/18/17 07:08) O2 (11/18/17 07:08) Intake & Output 06,14,22 (11/18/17 07:08) Monitor-Rhythm Ecg Trace Only (11/18/17 07:08) Dysphagia Screening Tool (11/18/17 07:08) Post Thrombolytic Adminstratio (11/18/17 07:08) Vital Signs/I&O 11/18/17 11/18/17 11/18/17 07:42 08:00 08:49 Temp 97.6 Pulse 80 70 70 Resp 20 20 18 B/P (MAP) 170/103 (125) 165/90 165/92 Pulse Ox 100 97 98 Blood Pressure Mean: 125 FSBG Bedside Testing Finger Stick Blood Glucose: 96 Progress Progress Note : Time: 08:09 Progress Note Case was discussed with Dr. Lopez, [facility] stroke neurologist, at 07:45. Given the timing of symptoms and her deficits, he believes it is likely she has a large vessel occlusion that could be treated with intravascular interventions. He recommends prompt transfer by air to [facility] for CT angiogram and CT perfusion studies. He believes prompt transfer will provide her the best opportunity for recovery from deficits. Patient is agreeable to transfer by air. Stefani is presently checking whether and crew status for transfer. Systolic blood pressure has improved to the 140s. Patient has minimally improved strength in the right arm. Initial ECG Impression Date: Nov 18, 2017 Initial ECG Impression Time: 06:56 Initial ECG Rate: 80 Initial ECG Rhythm: Normal Sinus Initial ECG Intervals: Normal Comment Normal sinus rhythm with no ST elevation or depression. No abnormal intervals or axis deviation. Diagnostic Imaging Diagonstic Imaging: CT Plain Films/CT/US/NM/MRI: head Comments CT head viewed by me and discussed with radiologist. Report reviewed. See report below: NAME: VREONICA RODRIGUEZ MED REC#: [id number] PT STATUS: REG ER : 1965 PHYSICIAN: JONI COELLO MD ADMIT DATE: 11/18/17/ER Draft Date of Exam:11/18/17 CT HEAD WO-R/O STROKE CT of the head without contrast at 713 hours. INDICATION: CVA. Contiguous axial sections were taken through the skull. FINDINGS: There is no mass, shift of midline or hemorrhage to suggest an acute intracranial abnormality. There is no sign of an asymmetric hyperdense vessel. The ventricles are not abnormally dilated and similar in size to the prior exam 03/06/2016. The mild cortical atrophy seen previously is again evident and no different. The bone windows show no sign of a fracture or destructive lesion. The orbits are symmetrical and within normal limits. The sinuses are generally clear. IMPRESSION: 1. There is no evidence for an acute intracranial abnormality. When compared to the prior study, there has been no significant change. 2. If clinical concern regarding an acute abnormality persists, then either MRI or CTA of the head would be recommended for further study. 3. These results were discussed with Dr. Joni Coello. Dictated on workstation # [id number] Dict: 11/18/17 0734 Trans: 11/18/17 0754 [id number] Interpreted by: FELICITAS GEIGER MD Diagonstic Imaging: Xray Plain Films/CT/US/NM/MRI: chest Comments Chest x-ray viewed by me and report reviewed. See report below: NAME: VERONICA RODRIGUEZ MED REC#: [id number] PT STATUS: REG ER : 1965 PHYSICIAN: JONI COELLO MD ADMIT DATE: 11/18/17/ER Draft Date of Exam:11/18/17 CHEST 1 VIEW, AP/PA ONLY EXAMINATION: Portable erect AP chest obtained at 712H. INDICATION: CVA, weakness The heart size is within normal limits and stable when compared to 03/12/2017. The lungs are clear. There is no sign of failure, pneumonia or a pleural effusion. Mediastinum is not widened. The osseous structures are intact. There is an orthopedic plate and screw fixation device overlying the lower cervical spine. IMPRESSION: There is no evidence for an acute cardiopulmonary abnormality. Dictated on workstation # [id number] Dict: 11/18/17 0733 Trans: 11/18/17 0747 [facility] [id number] Interpreted by: FELICITAS GEIGER MD Departure Impression Primary Impression: Right arm weakness Additional Impressions: Right leg weakness Hypertensive urgency Disposition: 02 XFER T-ECU [facility] Condition: Stable Transfer Time Spoke to Accepting Phy: 07:45 Transfer Progress Notes Transfer excepted by Dr. Lopez, stroke neurologist at [facility] Transfer Time: 08:49 Transfer Facility: [facility] Method of Transfer: Air Departure-Patient Inst. Referrals: JAKI MEDINA MD (PCP) Primary Care Physician WHIT GANDHI (Family) Primary Care Physician JONI COELLO MD Nov 18, 2017 08:06
[2017-11-18 08:49] VITALS: BP 165/92
== END 2017-11-18 08:49 | disposition short-term general hospital (02) ==
LOC: EDUNIT# 06:46 → ER 06:49
DX: M62.81 Muscle weakness (generalized) (principal); I16.0 Hypertensive urgency; J44.9 Chronic obstructive pulmonary disease, unspecified; E78.00 Pure hypercholesterolemia, unspecified; I10 Essential (primary) hypertension; G51.0 Bell's palsy; K21.9 Gastro-esophageal reflux disease without esophagitis; M06.9 Rheumatoid arthritis, unspecified; E11.40 Type 2 diabetes mellitus with diabetic neuropathy, unspecified; F90.9 Attention-deficit hyperactivity disorder, unspecified type; F41.9 Anxiety disorder, unspecified; F31.9 Bipolar disorder, unspecified; F17.210 Nicotine dependence, cigarettes, uncomplicated; Z87.59 Personal history of other complications of pregnancy, childbirth and the puerperium; Z87.19 Personal history of other diseases of the digestive system; Z90.710 Acquired absence of both cervix and uterus; Z88.0 Allergy status to penicillin; Z91.040 Latex allergy status; Z88.8 Allergy status to other drugs, medicaments and biological substances; Z79.51 Long term (current) use of inhaled steroids; Z79.82 Long term (current) use of aspirin; Z79.4 Long term (current) use of insulin
CPT/HCPCS: 36415; 70450; 71045; 80053; 82962; 84484; 85025; 85379; 85610; 85730; 93005; 93041

== ENCOUNTER → 2018-01-31 | Outpatient (CLI) | payer MEDICARE ==
[~2018-01-31] MED LIST changes: +METF-399 PO; -METF10002 PO
--- NOTE | 2018-01-31 18:12 | Diagnostic Imaging Report ---
INDICATION: Six-month followup. COMPARISON: Comparison made with prior examinations from 08/30/2017 and 06/11/2011. FINDINGS: The fibroglandular tissue is moderately dense in the right breast. There are scattered benign-type calcifications. Specifically, the group of microcalcifications in the posterior-inferior right breast is essentially stable compared to the prior examination. IMPRESSION: Benign. The patient should resume bilateral screening mammography in August 2018. ACR BI-RADS Category 2: Benign findings. Result letter will be mailed to the patient. Note: At least 10% of breast cancer is not imaged by mammography. Dictated by: Dictated on workstation # [id number]
== END ==
LOC: RAD 12:05
PROVIDERS: ATTEND Nurse Practitioner Community Health
DX: R92.8 Other abnormal and inconclusive findings on diagnostic imaging of breast (principal)

== ENCOUNTER → 2018-08-05 | Outpatient (CLI) | payer MEDICARE ==
[~2018-08-05] MED LIST changes: -GABA600T2 PO; +GABA800T10 PO; -GABA800T2 PO; +GBPN600T PO; -POLY255P PO; +POLY255P16 PO
--- NOTE | 2018-08-05 19:29 | Diagnostic Imaging Report ---
INDICATION: Pain in the upper portions of both breasts. COMPARISON: Correlation is made with prior mammograms from 01/31/2018, 08/16/2017, and 06/11/2011. TECHNIQUE: 2D and 3D bilateral diagnostic mammography was performed with computer-aided detection (CAD) system. FINDINGS: Both breasts show marked parenchymal density, limiting the sensitivity of mammography. There are benign calcifications throughout both breasts. No discrete mass or malignant appearing microcalcifications are seen. Axillae are unremarkable. IMPRESSION: No mammographic features suspicious for malignancy are identified. Even so, directed sonographic interrogation of the areas of pain in the upper portions of both breasts is recommended and will be performed today. ACR BI-RADS Category 0: Incomplete. (Needs additional imaging evaluation). Result letter will be mailed to the patient. Note: At least 10% of breast cancer is not imaged by mammography. Dictated on workstation # [id number]
--- NOTE | 2018-08-05 19:36 | Diagnostic Imaging Report ---
INDICATION: Bilateral breast pain. COMPARISON: Correlation is made with diagnostic mammogram earlier the same day. FINDINGS: Sonography interrogation of the upper portions of both breasts was performed. No sonographic abnormality is seen. No solid or cystic mass is identified. There are scattered calcifications noted. IMPRESSION: No sonographic abnormality is detected. ACR BI-RADS Category 2: Benign findings. Dictated on workstation # [id number]
== END ==
LOC: RAD 13:08
PROVIDERS: ATTEND Nurse Practitioner Community Health
DX: N60.12 Diffuse cystic mastopathy of left breast (principal); N60.11 Diffuse cystic mastopathy of right breast
CPT/HCPCS: 76642; 77066

== ENCOUNTER 2019-06-19 05:29 | Outpatient (CLI) | payer MEDICARE ==
[~2019-06-19] VITALS: Ht 165 cm; Wt 44.5 kg
[~2019-06-19 05:29] MED LIST changes: -AMPH20CA PO; +DEXT20CA4 PO; -LAMO100T PO; +LAMO100T5 PO; +SIMV10TA26 PO; -SIMV10TA3 PO
[2019-06-19] MEDS ORDERED: LEVO5TAB12 PO (13:50)
[2019-06-19] MEDS ORDERED: BACL10TA PO (13:50)
[2019-06-19] MEDS ORDERED: ATOR10TA66 PO (13:50)
[2019-06-19] MEDS ORDERED: OMG1KC PO (13:50)
[2019-06-19] MEDS ORDERED: NF-XOP-HFA INH (13:50)
[2019-06-19] MEDS ORDERED: AMLO5TAB9 PO (13:50)
[2019-06-19] MEDS ORDERED: NF-ESOM40C PO (13:50)
[2019-06-19] MEDS ORDERED: HYDR-4227 PO (13:50)
[2019-06-19] MEDS ORDERED: HYOS-20 PO (13:50)
[2019-06-19] MEDS ORDERED: IBUP-1773 PO (13:50)
[2019-06-19] MEDS ORDERED: UMEC1BLS IH (13:50)
[2019-06-19] MEDS ORDERED: PSEU60TA88 PO (13:50)
[2019-06-19] MEDS ORDERED: LORA-404 PO (13:50)
[2019-06-19] MEDS ORDERED: MULT1CAP27 PO (13:50)
[2019-06-19] MEDS ORDERED: PROP20TA5 PO (13:50)
[2019-06-19] MEDS ORDERED: SIME80TA16 PO (13:50)
[2019-06-19] MEDS ORDERED: ONDA8TAB6 PO (13:50)
[2019-06-19] MEDS ORDERED: BLAC540C4 PO (13:50)
[2019-06-19] MEDS ORDERED: POLY17PO6 PO (13:50)
[2019-06-19] MEDS ORDERED: LUBI24CA6 PO (13:50)
[2019-06-19] MEDS ORDERED: BUDE90AE2 IH (13:50)
[2019-06-19] MEDS ORDERED: TOPI50TA37 PO (13:50)
[2019-06-19] MEDS ORDERED: TOPI100T PO (13:50)
[2019-06-19] MEDS ORDERED: NF-ADDXR30 PO (13:50)
[2019-06-19] MEDS ORDERED: LEVA0.6320 INH (13:50)
[2019-06-19] MEDS ORDERED: HYDR25TA4 PO (13:50)
[2019-06-19] MEDS ORDERED: TOLTA4 PO (13:50)
== END 2019-06-19 15:10 | disposition home or self-care (01) ==
LOC: PREOP 05:29
PROVIDERS: ATTEND Surgery
DX: Z01.818 Encounter for other preprocedural examination (principal)

== ENCOUNTER 2019-07-12 17:59 | Emergency (ER) | payer MEDICARE, MEDICAID ==
[~2019-07-12] VITALS: Ht 165 cm; Wt 43.0 kg
[~2019-07-12 17:59] MED LIST changes: +AMLO5TAB9 PO; +ATOR10TA66 PO; +BLAC540C4 PO; +BUDE90AE2 IH; +HYDR-4227 PO; +HYDR25TA4 PO; +HYOS-20 PO; +LEVA0.6320 INH; +LEVO5TAB12 PO; +LORA-404 PO; +LUBI24CA6 PO; -MONT10TA24 PO; +MONT10TA26 PO; +MULT1CAP27 PO; +NF-ADDXR30 PO; +NF-XOP-HFA INH; +OMG1KC PO; +ONDA8TAB6 PO; +POLY17PO6 PO; +PSEU60TA88 PO; +SIME80TA16 PO; +TOLTA4 PO; +TOPI100T PO; +TOPI50TA37 PO; -TRAZ-190 PO; +TRAZ-227 PO; +UMEC1BLS IH
[2019-07-12 18:10] VITALS: BP 99/63
[2019-07-12] MEDS ORDERED: CLIN300C11 PO (19:02)
--- NOTE | 2019-07-12 19:05 | ED Integumentary General ---
General Chief Complaint: Skin/Wound Problems Stated Complaint: WOUND ON LEFT ELBOW Nursing Triage Note: PT HAD AREA REMOVED ON LEFT ELBOW BY DR ARTEAGA. STICHES REMOVED ON WEDNESDAY. TODAY INCISION OPENED UP. History of Present Illness Date Seen by Provider: Jul 12, 2019 Time Seen by Provider: 18:30 Initial Comments 53-year-old female had the skin lesion removed from her left elbow. It was healing fine and the remaining sutures removed 3 days ago. Today she noted the incision to open and had some purulent drainage. She attempted to reach Dr. Arteaga's office and was unable to. Timing/Duration: this afternoon Location: extremities (left elbow) Associated Symptoms: denies symptoms Allergies and Home Medications Allergies Coded Allergies: cefdinir (Verified Allergy, Severe, ANAPHYLAXIS, 06/19/19) diphenhydramine (Verified Allergy, Severe, ANAPHYLAXIS, 06/19/19) propoxyphene napsylate (Unverified Allergy, Severe, ANAPHYLAXIS, 06/19/19) venlafaxine (Verified Allergy, Severe, ANAPHYLAXIS, 06/19/19) latex (Verified Allergy, Intermediate, SWELLING IN HANDS FROM GLOVES, 06/19/19) Penicillins (Verified Allergy, Unknown, 06/19/19) Home Medications Albuterol Sulfate 2.5 Mg/3 Ml Vial.neb, 2.5 MG NEB Q4H PRN for SHORTNESS OF BREATH, (Reported) Albuterol Sulfate 18 Gm Hfa.aer.ad, 2 PUFF INH Q4H PRN for SHORTNESS OF BREATH, (Reported) Amlodipine Besylate 5 Mg Tablet, 5 MG PO DAILY, (Reported) Aspirin 81 Mg Tablet.dr, 81 MG PO DAILY Prescribed by: CÉSAR IZQUIERDO on 03/13/17 1118 Atorvastatin Calcium 10 Mg Tablet, 10 MG PO HS, (Reported) Baclofen 10 Mg Tablet, 10 MG PO TID, (Reported) Benztropine Mesylate 0.5 Mg Tablet, 0.5 MG PO TID, (Reported) [place] Cohosh 540 Mg Capsule, 540 MG PO DAILY, (Reported) Budesonide 90 Mcg Aer.pow.ba, 90 MCG IH BID, (Reported) Buspirone HCl 15 Mg Tablet, 15 MG PO 0800,1500,2100, (Reported) Butalb/Acetaminophen/Caffeine 1 Each Tablet, 1 TAB PO Q6H PRN for HEADACHE, (Reported) Calcium Carbonate/Vitamin D3 1 Each Tablet, 1 TAB PO DAILY, (Reported) Clindamycin HCl 300 Mg Capsule, 300 MG PO Q8H Prescribed by: MORGAN SMYTH on 07/12/19 190 Clonidine HCl 0.1 Mg Tablet, 0.1 MG PO 0800,1500,2100, (Reported) Dextroamphetamine/Amphetamine 30 Mg Cap.er.24h, 30 MG PO DAILY, (Reported) Dicyclomine HCl 20 Mg Tablet, 20 MG PO QID, (Reported) Esomeprazole Magnesium 40 Mg Cap, 40 MG PO DAILY, (Reported) Fluticasone Propionate 16 Gm [place].susp, 2 SPRAY NS BID, (Reported) Gabapentin 800 Mg Tablet, 800 MG PO 0800,1500,2100, (Reported) Hydrochlorothiazide 25 Mg Tablet, 25 MG PO DAILY, (Reported) Hydrocodone Bit/Acetaminophen 1 Tab Tab, 1 TAB PO Q4-6HR Prescribed by: VALENTIN ARTEAGA on 06/22/19 1503 Hydrocodone/Acetaminophen 1 Each Tablet, 1 TAB PO TID PRN for PAIN-MODERATE (5- 7), (Reported) Hyoscyamine Sulfate 0.125 Mg Tablet, 0.125 MG PO QID, (Reported) Insulin Detemir 100 Unit/1 Ml Insuln.pen, 7 UNITS SC HS, (Reported) Lamotrigine 100 Mg Tablet, 100 MG PO BID, (Reported) Levalbuterol HCl 0.63 Mg/3 Ml Vial.neb, 0.63 MG INH QID, (Reported) Levalbuterol Tartrate 15 Gm Hfa.aer.ad, 15 GM INH Q4H PRN for SHORTNESS OF BREATH, (Reported) Levocetirizine Dihydrochloride 5 Mg Tablet, 5 MG PO DAILY, (Reported) Lisinopril 30 Mg Tablet, 30 MG PO DAILY, (Reported) Lorazepam 0.5 Mg Tablet, 0.5 MG PO TID, (Reported) Loxapine Succinate 10 Mg Capsule, 10 MG PO BID, (Reported) Lubiprostone 24 Mcg Capsule, 24 MCG PO BID, (Reported) Metformin HCl 1,000 Mg Tablet, 1,000 MG PO BID WITH MEALS, (Reported) Metoprolol Tartrate 50 Mg Tablet, 50 MG PO BID Prescribed by: CÉSAR IZQUIERDO on 03/13/17 1118 Montelukast Sodium 10 Mg Tablet, 10 MG PO HS, (Reported) Multivitamin 1 Each Capsule, 1 EACH PO DAILY, (Reported) [place] 3 Polyunsat Fatty Acids 1,000 Mg Cap, 2,000 MG PO BID, (Reported) Ondansetron HCl 8 Mg Tablet, 8 MG PO BID PRN for NAUSEA/VOMITING, (Reported) Polyethylene Glycol 3350 17 Gm Powd.pack, 17 GM PO DAILY, (Reported) Propranolol HCl 20 Mg Tablet, 20 MG PO BID, (Reported) Pseudoephedrine HCl 60 Mg Tablet, 60 MG PO Q6H PRN for CONGESTION, (Reported) Simethicone 80 Mg Tab.chew, 80 MG PO QID PRN for GAS, (Reported) Tolterodine Tartrate 4 Mg Cap, 4 MG PO DAILY, (Reported) Topiramate 50 Mg Tablet, 50 MG PO BID, (Reported) Topiramate 100 Mg Tablet, 100 MG PO BID, (Reported) Trazodone HCl 100 Mg Tablet, 100 MG PO HS, (Reported) Umeclidinium Brm/Vilanterol Tr 1 Each Blst.w.dev, 1 EACH IH DAILY, (Reported) Patient Home Medication List Home Medication List Reviewed: Yes Review of Systems Review of Systems Constitutional: no symptoms reported, see HPI Skin: see HPI, other (dehiscence of wound to left elbow.) Past Aztvqmt-Sullcg-Pzwnfn Hx Past Med/Social Hx: Reviewed Nursing Past Med/Soc Hx Patient Social History Alcohol Use: Denies Use Recreational Drug Use: No Smoking Status: Current Everyday Smoker Type Used: Cigarettes 2nd Hand Smoke Exposure: Yes Recent Foreign Travel: No Contact w/Someone Who Travel: No Recent Infectious Disease Expo: No Recent Hopitalizations: No Immunizations Up To Date Tetanus Booster (TDap): Unknown Date of Pneumonia Vaccine: Feb 15, 2017 Date of Influenza Vaccine: Feb 13, 2019 Seasonal Allergies Seasonal Allergies: Yes Past Medical History Surgeries: Yes (c/s x3, bilat knee scope, breast bx, bilat ankle sx, right foot fx, ) Abdominal, Section, Hysterectomy, Orthopedic Respiratory: Yes Asthma, Chronic Bronchitis, COPD Currently Using CPAP: No Currently Using BIPAP: No Cardiac: Yes High Cholesterol, Hypertension Neurological: Yes (neuropathy hands/feet, fibromyalgia, Hayes's palsy) Neuropathy, Stroke 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: Yes 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 Sexually Transmitted Disease: No HIV/AIDS: No Genitourinary: No Gastrointestinal: Yes (gastritis ) Abdominal Hernia, Gastroesophageal Reflux, Irritable Bowel Musculoskeletal: Yes Degenerate Disk Disease, Osteoporosis, Arthritis, Fibromyalgia, Rheumatoid Arthritis Endocrine: Yes Diabetes, Insulin dep HEENT: Yes (GLASSES) Cataract Loss of Vision: Denies Hearing Impairment: Hard of Hearing Cancer: Yes Skin Psychosocial: Yes ADD/ADHD, Anxiety, Bipolar, Depression Integumentary: No Blood Disorders: No Adverse Reaction/Blood Tranf: No (N/A) Family Medical History No Pertinent Family Hx Physical Exam Vital Signs Vital Signs - First Documented 07/12/19 18:10 Temp 37.0 Pulse 74 Resp 16 B/P (MAP) 99/63 (75) Pulse Ox 96 O2 Delivery Room Air Capillary Refill : Less Than 3 Seconds General Appearance: WD/WN, no apparent distress Cardiovascular: normal peripheral pulses, regular rate, rhythm Respiratory: chest non-tender, lungs clear, normal breath sounds Neurologic/Psychiatric: no motor/sensory deficits, alert, normal mood/affect, oriented x 3 Skin: normal color, warm/dry Skin Problem Location: upper extremities (left elbow) Skin Problem Character: drainage, other (open wound left elbow with exposure of the muscle and olecranon, no erythema or warmth.) Progress/Results/Core Measures Results/Orders Vital Signs/I&O 07/12/19 18:10 Temp 37.0 Pulse 74 Resp 16 B/P (MAP) 99/63 (75) Pulse Ox 96 O2 Delivery Room Air Blood Pressure Mean: 75 Progress Progress Note : Time: 18:30 Progress Note Patient seen and evaluated, discussed wound with Dr. Arteaga by phone. R ecommendations for treatment received. 184 wound irrigated with 500 ML's of Hibiclens and normal saline. The wound was packed with iodoform gauze. Sterile bulky dressing was applied. Patient education on wound packing completed with son. 1900 discharge instructions and return precautions reviewed with the patient. They will follow-up with Dr. Arteaga's office tomorrow to receive further instructions on wound care. Departure Impression Primary Impression: Dehiscence of wound Disposition: HOME, SELF-CARE Condition: Improved Departure-Patient Inst. Decision time for Depature: 19:00 Referrals: [facility] (PCP) Primary Care Physician WHIT GANDHI (Family) Primary Care Physician Patient Instructions: Wound Care (DC) Add. Discharge Instructions: Leave dressing in place. Call Dr. Arteaga's office for appt with nurse to have wound packed, tomorrow. Take antibiotic as prescribed. Return to the emergency department for new, urgent health care needs. All discharge instructions reviewed with patient and/or family. Voiced understanding. Scripts Clindamycin HCl (Clindamycin HCl) 300 Mg Capsule 300 MG PO Q8H, #24 CAP 0 Refills Prov: MORGAN SMYTH 07/12/19 Copy Copies To 1: VALENTIN ARTEAGA AMY ARNP Jul 12, 2019 19:05
--- NOTE | 2019-07-12 19:10 | NUR ---
ASSUMED CARE OF THIS PATIENT FROM TODD MARTINEZ FOR DISCHARGE CARE.
--- OUTSIDE RECORDS SUMMARY | 2019-07-17 10:34 | XMS REPORT | Clinical Summary ---
Author Author [facility] Organization [facility] Address Unknown Phone Unavailable Care Team Providers Care Disabilities Caregiver Name Role Phone Otilio Gavin [employer] PCP Source Comments Some departments are not documenting in the electronic medical record. If you d o not see the information that you expected, contact Release of Information in [facility] Health Information Management department at [phone] for further assistan ce in locating additional records.[facility] Allergies Comments Active Allergy Reactions Severity Noted Date Diphenhydramine Hcl HIVES Medium 11/18/2017 Cefdinir HIVES Medium 11/18/2017 Penicillins HIVES Medium 11/18/2017 [place] SWOLLEN High 11/19/2017 TONGUE Medications End Date Status Medication Sig Dispensed Refills Start Date Active lubiprostone (AMITIZA) 8 Take 8 mcg by 0 mcg cap capsule mouth twice daily with meals. Active polyethylene glycol 3350 Take 17 g by 0 (MIRALAX) 17 g packet mouth daily. Active albuterol (PROAIR HFA, Inhale 2 0 VENTOLIN HFA, OR puffs by PROVENTIL HFA) 90 mouth into mcg/actuation inhaler the lungs four times daily as needed for Wheezing or Shortness of Breath. Shake well before use. Active dicyclomine (BENTYL) 20 Take 20 mg by 0 mg tablet mouth with meals and at bedtime. Active ondansetron (ZOFRAN ODT) Dissolve by 0 4 mg rapid dissolve mouth every 8 tablet hours as needed for Nausea or Vomiting. Place on tongue to disolve. Active umeclidinium-vilanterol Inhale 1 puff 0 (ANORO ELLIPTA) 62.5-25 by mouth into mcg/actuation inhaler the lungs daily. Active fluticasone (FLONASE) 50 Apply 1 spray 0 mcg/actuation nasal spray to each nostril as directed twice daily. Shake bottle gently before using. Active butalbital/acetaminophen/ Take 1 tablet 0 caffeine(+) (FIORICET) by mouth 50/325/40 mg tablet three times daily. Active baclofen (LIORESAL) 20 mg Take 20 mg by 0 tablet mouth three times daily. Active gabapentin (NEURONTIN) Take 800 mg 0 800 mg tablet by mouth three times daily. Active metFORMIN (GLUCOPHAGE) Take 1,000 mg 0 1,000 mg tablet by mouth twice daily with meals. Active beclomethasone(+) (QVAR) Inhale 1 puff 0 80 mcg/actuation inhaler by mouth into the lungs twice daily. Active cloNIDine (CATAPRESS) 0.1 Take 0.1 mg 0 mg tablet by mouth three times daily. Active metoprolol tartrate Take 50 mg by 0 (LOPRESSOR) 50 mg tablet mouth twice daily. Active montelukast (SINGULAIR) Take 10 mg by 0 10 mg tablet mouth at bedtime daily. Active loxapine (LOXITANE) 10 mg Take 10 mg by 0 capsule mouth twice daily. Active lamoTRIgine (LAMICTAL) Take 100 mg 0 100 mg tablet by mouth twice daily. Active busPIRone (BUSPAR) 15 mg Take 15 mg by 0 tablet mouth three times daily. Active traZODone (DESYREL) 100 Take 100 mg 0 mg tablet by mouth at bedtime daily. Active benztropine (COGENTIN) Take 0.5 mg 0 0.5 mg tablet by mouth three times daily. Active esomeprazole DR(+) Take 40 mg by 0 (NEXIUM) 40 mg capsule mouth every morning. Take on an empty stomach at least 1 hour before or 2 hours after food. Active diclofenac(+) (VOLTAREN) Apply 2-4 g 0 1 % topical gel topically to affected area four times daily. Active amLODIPine (NORVASC) 5 mg Take 5 mg by 0 tablet mouth daily. Active atorvastatin (LIPITOR) 10 Take 10 mg by 0 mg tablet mouth daily. Active insulin detemir(+) Inject 7 0 (LEVEMIR) 100 unit/mL Units under soln the skin daily. Active amphetamine-dextroampheta Take 20 mg by 0 mine XR (ADDERALL XR) 20 mouth every mg capsule morning Active HYDROcodone/acetaminophen Take 1 tablet 0 (NORCO) 7.5/325 mg tablet by mouth every 6 hours as needed for Pain Active LORazepam (ATIVAN) 2 mg Take 2 mg by 0 tablet mouth three times daily as needed. Active Multivitamin Cmb Take 1 tablet 0 No.21-Iron-FA (CENTRUM) by mouth 18-400 mg-mcg tab daily. Active aspirin 81 mg chewable Chew 81 mg by 0 tablet mouth daily. Take with food. Active calcium carbonate/vitamin Take 1 tablet 0 D-3 (OSCAL-500+D) 1250 by mouth mg/200 unit tablet daily. Calcium Carb 1250mg delivers 500mg elemental Ca Active lisinopril (PRINIVIL, Take 1 tablet 30 tablet 2 ZESTRIL) 40 mg tablet by mouth 8 daily. Active nicotine polacrilex Place 1 100 tablet 0 (COMMIT) 4 mg lozenge lozenge 8 inside cheek (side of mouth) as Needed. Active Problems Problem Noted Date Neuropathy of right radial nerve 11/19/2017 Essential hypertension 11/19/2017 Other hyperlipidemia 11/19/2017 Type 2 diabetes mellitus 11/19/2017 Tobacco abuse 11/19/2017 COPD (chronic obstructive pulmonary disease) 018 Social History Date Tobacco Use Types Packs/Day Years Used Current Every Day Smoker Cigarettes 1 15 Sex Assigned at Date Recorded Not on file Industry Job Start Date Occupation Not on file Not on file Not on file Travel End Travel History Travel Start No recent travel history available. Last Filed Vital Signs Reading Time Taken Comments Vital Sign 166/80 11/19/2017 3:18 PM CDT Blood Pressure 73 11/19/2017 1:22 PM CDT Pulse 36.7 C (98.1 F) 11/19/2017 1:22 PM CDT Temperature - - Respiratory Rate 97% 11/19/2017 1:22 PM CDT Oxygen Saturation - - Inhaled Oxygen Concentration 47.2 kg (104 lb) 11/18/2017 1:04 PM CDT Weight 165.1 cm (5' 5") 11/18/2017 1:04 PM CDT Height 17.31 11/18/2017 1:04 PM CDT Body Mass Index Plan of Treatment Health Maintenance Due Date Last Done Comments MEDICARE ANNUAL WELLNESS 1966 VISIT DTAP/TDAP VACCINES (1 - 1977 Tdap) HIV SCREENING 1981 PHYSICAL (COMPREHENSIVE) 1984 EXAM CERVICAL CANCER SCREENING 1996 BREAST CANCER SCREENING 2006 COLORECTAL CANCER 2016 SCREENING 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 11/18/2017 11:11 AM Full Code 11/18/2017 9:35 AM Provider has discussed Code Status No, more discussi on w/Patient or Family? needed
--- OUTSIDE RECORDS SUMMARY | 2019-07-17 10:35 | XMS REPORT ---
Author Author [facility] Organization [facility] Address [address] [place] [id number] Care Team Providers Care Consultant Nurse Name Role Phone WHIT GANDHI Unavailable Unavailable YVON WILLS Unavailable Unavailable OKSANAWHIT Unavailable IRIS YOUSIF Unavailable Unavailable OKSANAWHIT Unavailable LACEY DORMAN Unavailable WHIT GANDHI Unavailable Unavailable LACEY DORMAN Unavailable Unavailable [facility] Unavailable JAKI MEDINA Unavailable Unavailable BARBY GARRIDO Unavailable Unavailable LYNN GILBERT Unavailable Unavailable JAKI MEDINA Unavailable SOFIA PARKS Unavailable Unavailable JAKI MEDINA Unavailable INDER MAGAÑA Unavailable OKSANAWHIT Unavailable GISELE WILLSINDA Unavailable OKSANA WHIT Unavailable OKSANA, WHIT Unavailable OKSANA, WHIT Unavailable GISELE WILLSINDA Unavailable OKSANA WHIT Unavailable OKSANA WHIT Unavailable GISELE WILLSINDA Unavailable OKSANA, WHIT Unavailable OKSANA, WHIT Unavailable OKSANA, WHIT Unavailable OKSANA, WHIT Unavailable OKSANA, WHIT Unavailable OKSANA WHIT Unavailable GISELE WILLSINDA Unavailable OKSANA, WHIT Unavailable OKSANA WHIT Unavailable [facility] Unavailable [phone] OKSANA WHIT Unavailable OKSANA WHIT Unavailable OKSANA, WHIT Unavailable OKSANA, WHIT Unavailable JOHANN, YVON Unavailable OKSANA, WHIT Unavailable OKSANA, WHIT Unavailable OKSANA, WHIT Unavailable OKSANA, WHIT Unavailable JOHANN, YVON Unavailable JOHANN, YVON Unavailable JOHANN, YVON Unavailable OKSANA, WHIT Unavailable OKSANA, WHIT Unavailable JOHANN, YVON Unavailable JOHANN, YVON Unavailable OKSANA, WHIT Unavailable JOHANN, YVON Unavailable JOHANN, YVON Unavailable JOHANN, YVON Unavailable OKSANA, WHIT Unavailable OKSANA, WHIT Unavailable OKSANA, WHIT Unavailable JOHANN, YVON Unavailable OKSANA, WHIT Unavailable OKSANA, WHIT Unavailable OKSANA, WHIT Unavailable OKSANA, WHIT Unavailable OKSANA, WHIT Unavailable OKSANA, WHIT Unavailable OKSANA, WHIT Unavailable JOHANN, YVON Unavailable OKSANA, WHIT Unavailable OKSANA, WHIT Unavailable JAKI MEDINA Unavailable JOHANN, YVON Unavailable OKSANA, WHIT Unavailable OKSANA, WHIT Unavailable OKSANA, WHIT Unavailable OKSANA, WHIT Unavailable OKSANA, WHIT Unavailable JOHANN, YVON Unavailable OKSANA, WHIT Unavailable OKSANA, WHIT Unavailable OKSANA, WHIT Unavailable JAKI MEDINA Unavailable CAROL JAKI Unavailable OKSANA, WHIT Unavailable JOHANN, YVON Unavailable OKSANA, WHIT Unavailable JOHANN, YVON Unavailable OKSANA, WHIT Unavailable OKSANA, WHIT Unavailable OKSANA, WHIT Unavailable OKSANA, WHIT Unavailable OKSANA, WHIT Unavailable OKSANA, WHIT Unavailable JOHANN, YVON Unavailable OKSANA, WHIT Unavailable OKSANA, WHIT Unavailable JOHANN, YVON Unavailable OKSANA, WHIT Unavailable JOHANN, YVON Unavailable JOHANN, YVON Unavailable OKSANA, WHIT Unavailable JOVANY LOU MD Unavailable Unavailable OKSANA, WHIT Unavailable OKSANA, WHIT Unavailable OKSANA, WHIT Unavailable OKSANA, WHIT Unavailable OKSANA, WHIT Unavailable TODD FINLEY Unavailable OKSANA, WHIT Unavailable OKSANA, WHIT Unavailable OKSANA, WHIT Unavailable OKSANA, WHIT Unavailable OKSANA, WHIT Unavailable OKSANA, WHIT Unavailable JOHANN, YVON Unavailable OKSANA, WHIT Unavailable OKSANA, WHIT Unavailable OKSANA, WHIT Unavailable OKSANA, WHIT Unavailable OKSANA, WHIT Unavailable OKSANA, WHIT Unavailable OKSANA, WHIT Unavailable OKSANA, WHIT Unavailable OKSANA, WHIT Unavailable JOHANN, YVON Unavailable OKSANA, WHIT Unavailable OKSANA, WHIT Unavailable OKSANA, WHIT Unavailable OKSANA, WHIT Unavailable GISELE WILLSINDA Unavailable REY BOLAND, EDE Menendez Unavailable Unavailable REY BOLAND, EDE Menendez Unavailable Unavailable OKSANA, WHIT Unavailable OKSANA, WHIT Unavailable GISELE WILLSINDA Unavailable OKSANA, WHIT Unavailable OKSANA, WHIT Unavailable OKSANA, WHIT Unavailable OKSANA, WHIT Unavailable OKSANA, WHIT Unavailable OKSANA, WHIT Unavailable OKSANA, WHIT Unavailable OKSANA, WHIT Unavailable OKSANA, WHIT Unavailable OKSANA, WHIT Unavailable OKSANA, WHIT Unavailable OKSANA, WHIT Unavailable OKSANA, WHIT Unavailable OKSANA, WHIT Unavailable OKSANA, WHIT Unavailable OKSANA, WHIT Unavailable OKSANA, WHIT Unavailable OKSANA, WHIT Unavailable OKSANA, WHIT Unavailable OKSANA, WHIT Unavailable OKSANA, WHIT Unavailable OKSANA, WHIT Unavailable OKSANA, WHIT Unavailable OKSANA, WHIT Unavailable OKSANA, WHIT Unavailable OKSANA, WHIT Unavailable Migration, Doctor Unavailable Unavailable Migration, Doctor Unavailable Unavailable OKSANAWHIT Unavailable Unavailable Migration, Doctor Unavailable Unavailable Migration, Doctor Unavailable Unavailable Migration, Doctor Unavailable Unavailable OKSANA, WHIT Unavailable DORY ROBLERO Unavailable JAKI MEDINA Unavailable SHANA Lira Unavailable OKSANAWHIT T Unavailable Unavailable OKSANA, WHIT Unavailable WHIT GANDHI Unavailable WHIT GANDHI Unavailable VALENTIN ARTEAGA DO Unavailable Unavailable WHIT OWEN Unavailable Unavailable JUSTIN LEVINE MD Unavailable Unavailable JOSÉ OCASIO APRN Unavailable Unavailable LEO WALTON MD Unavailable Unavailable WAYLON ZAIDI MD Unavailable Unavailable EDE LE MD Unavailable Unavailable EDE LE MD Unavailable Unavailable CINTHIA CARABALLO APRN Unavailable Unavailable GIANNI LIVINGSTON MD Unavailable Unavailable TUCKER LESLIE MD Unavailable Unavailable JAKI MEDINA Unavailable JAKI MEDINA Unavailable JAKI MEDINA Unavailable Allergies The data below is from unstructured sources Allergen Type Severity Reaction Status Last Updated propoxyphene napsylate Allergy Unknown Active 07/06/12 No Information Medications Current Medications Medication Ingredient Drug Dose Dates Status Sig Sig Care Class(es) (Normalized) (Original) Provid er 120 actuat albuterol / Anticholine 1 09-24-19 Active take 1 Combivent no albuterol ipratropium rgic, puff(s 18 puff(s) by Respimat n castro 0.1 Translation beta2-Adren ) inhalation 20-100 ( no mg/actuat / s: [ ergic four times MCG/ACT phone) ipratropium Combivent Agonist daily Inhalation bromide Respimat Four times a 0.02 20-100 day 1 puff mg/actuat MCG/ACT] 6h 23 September, metered 2017 Active dose inhaler (1 source.) 24 hr Amphetamine Central 30 mg 06-09-19 Active take 1 Adderal l XR no amphetamine aspartate / Nervous 19 capsule by 30 MG Orall y name aspartate Amphetamine System mouth twice 2 times a (no 7.5 mg / Sulfate / Stimulant daily day 1 phone) amphetamine Dextroamphe capsule 12h sulfate 7.5 tamine Jul, mg / saccharate 28 days dextroamphe / Active tamine Dextroamphe saccharate tamine 7.5 mg / Sulfate dextroamphe Translation tamine s: [ sulfate 7.5 Adderall XR mg extended 30 MG] release oral capsule (5 sources.) 30 mg 04-27-2018 Active no Adderall no name inform XR 30 MG (no ation Orally phone) Once a day for depressi on 1 capsule in the morning Apr, 28 days Active 30 mg 03-30-2018 Active no Adderall no name inform XR 30 MG (no ation Orally phone) Once a day for depressi on 1 capsule in the morning Mar, 28 days Active no Aspir-81 81 no Active take 1 Aspir-81 81 no information MG information tablet by MG Orally name (1 source.) mouth once Once a day 1 (no daily tablet 24h phone) Active 120 actuat beclomethas Corticoster 1 09-24-19 Active take 1 Qvar 80 no beclomethas one oid puff(s 18 puff(s) by MCG/ACT name one Translation ) inhalation Inhalation (no dipropionat s: [ Qvar twice daily Twice a day phone) e 0.08 80 MCG/ACT, 1 puff 12h mg/actuat Qvar 80 18 Oct, 2017 metered MCG/ACT] 30 days dose Active inhaler (6 sources.) no black no 20 mg 09-02-19 Active no Black Cohosh no information cohosh information 18 - information 20 MG Ora lly name (2 extract 10-02-19 Twice a day (no sources.) Translation 18 1 tablet in phone) s: [ Black the morning Cohosh 20 12h Aug, MG] 2017September, 30 day(s) Active 20 mg 09-01-2017 Active no Black no name - inform Cohosh (no 10-01-2017 ation 20 MG phone) Orally Twice a day 1 tablet in the morning 12h Aug, September, 30 day(s) Active 60 actuat budesonide Corticoster 1 12-08-19 Active take 1 P ulmicort no budesonide Translation oid puff(s 18 puff(s) by Flexhaler 90 name 0.09 s: [ ) inhalation mcg/act (no mg/actuat Pulmicort twice daily Inhalation phone) dry powder Flexhaler Twice a day inhaler (5 90 mcg/act, 1 puff 12h sources.) Pulmicort Nov, Flexhaler Active 90 mcg/act] 120 actuat budesonide Corticoster 2 08-26-19 Active take 2 Symbicort no budesonide / oid, puff(s 18 puff(s) by 160-4.5 name 0.16 formoterol beta2-Adren ) inhalation MCG/ACT (n o mg/actuat / Translation ergic twice daily Inhalation phone) formoterol s: [ Agonist Twice a day fumarate Symbicort 2 puffs 12h 0.0045 160-4.5 Aug, mg/actuat MCG/ACT] Active metered dose inhaler (1 source.) no Calcium 600 no Active no Calcium 600 no information + D 600-200 information information + D 600-200 name (14 MG-UNIT MG-UNIT (no sources.) Translation Active phone) s: [ Calcium 600 + D 600-200 MG-UNIT, Calcium 600 + D 600-200 MG-UNIT] ciprofloxac Ciprofloxac Quinolone 500 mg 07-23-19 Active take 1 Cipro 500 MG no in 500 mg in Antimicrobi 19 tablet by Orally every name oral tablet Translation al mouth every 12 hrs 1 (no (1 source.) s: [ Cipro twelve hours tablet 12h phone) 500 MG] Jul, 10 day(s) Active hydrocortis hydrocortis Aminoglycos 03-03-20 Active no Neomy tejas-Emile no one 10 one / taylor 18 information ymyxin-HC name mg/ml / neomycin / Antibacteri 3.5-28731-2 (no neomycin polymyxin b al, Otic Three phone) 3.5 mg/ml / Translation Polymyxin-c times a day polymyxin b s: [ lass 4 drops into [address] Neomycin-Po Antibacteri affected ear unt/ml otic lymyxin-HC al, 8h Feb, suspension 3.5-76076-7 Corticoster 2017 7 days (3 , oid Active sources.) Hydrocortis one 10 MG/ML / Neomycin 3.5 MG/ML / Polymyxin B 99311 UNT/ML Otic Suspension, Neomycin-Po lymyxin-HC 3.5-33171-4 ] 4 drop(s) 03-03-2018 Active no Neomycin no name inform -Polymyx (no ation in-HC phone) 3.5-1000 0-1 Otic Three times a day 4 drops into affected ear 8h Feb, 7 days Active hyoscyamine hyoscyamine no 0.125 07-23-19 Active no Hyo scyamine no sulfate Translation information mg 18 information Sulfate name 0.125 mg s: [ 0.125 MG (no oral tablet Hyoscyamine Orally Four phone) (2 Sulfate times a day sources.) 0.125 MG] 1 tablet as needed 6h Jul, Active levocetiriz levocetiriz Histamine-1 5 mg 01-07-20 Active no Levocetirizi no ine ine Receptor 18 - information ne name dihydrochlo Translation Antagonist 04-06-20 Dihydrochlor (no ride 5 mg s: [ 18 taylor 5 MG phone) oral tablet Levocetiriz Orally Once (6 ine a day 1 sources.) Dihydrochlo tablet in ride 5 MG, the evening Levocetiriz 24h Dec, 30 Dihydrochlo day(s) ride 5 MG] Active no Multivitami no Active no Multivitamin no information n Adult - information information Adult - name (14 Translation Active (no sources.) s: [ phone) Multivitami n Adult -, Multivitami n Adult -] pseudoephed pseudoephed alpha-Adren 60 mg 04-07-20 Active take 1 SudoGest 60 no rine rine ergic 18 tablet by mg Orally name hydrochlori Translation Agonist mouth every every 6 hrs (no de 60 mg s: [ six hours as 1 tablet as phone) oral tablet Sudafed 30 needed needed 6h 29 (12 MG, Sudafed Mar, 2018 sources.) 30 MG, Active Pseudoephed rine Hydrochlori de 60 MG Oral Tablet [Sudogest], SudoGest 60 MG] 30 mg 09-30-2017 Suspended no Sudafed no name inform 30 MG (no ation Orally phone) every 6 hrs 1 tablet as needed 6h September, Not-Taki ng 30 mg 09-30-2017 Active no no no name inform informat (no ation ion phone) 30 mg 09-30-2017 Active no Sudafed no name inform 30 MG (no ation Orally phone) every 6 hrs 1 tablet as needed 6h September, Active no Pulmicort no 1 12-09-19 Active take 1 Pulmicort no information Flexhaler information puff(s 18 puff(s) by Flexha ler 90 name (2 90 MCG/ACT ) inhalation MCG/ACT (no sources.) twice daily Inhalation 2 phone) times a day 1 puff 12h Dec, Active 1 puff(s) 12-07-2017 Active take 1 Pulmicor no name puff(s t (no ) by Flexhale phone) inhala r 90 tion MCG/ACT twice Inhalati daily on Twice a day 1 puff 12h Nov, Active spironolact Spironolact Aldosterone 25 mg 04-07-20 Active no Spironolacto no one 25 mg one Antagonist 18 information ne 25 MG na me oral tablet Translation Orally Once (no (2 s: [ a day 1 phone) sources.) Spironolact tablet 24h one 25 MG] Mar, 30 days Active 24 hr tolterodine Cholinergic 4 mg 01-07-20 Active no Det rol LA 4 no tolterodine Translation Muscarinic 18 - information MG Oral ly name tartrate 4 s: [ Detrol Antagonist 04-06-20 Once a day 1 (no mg extended LA 4 MG, 18 capsule 24h phone) release Detrol LA 4 Dec, oral MG] 30 day(s) capsule (4 Active sources.) topiramate topiramate Anti-epilep 50 mg 12-03-19 Active take 1 Topiramate no 50 mg oral Translation tic Agent 18 tablet by 50 mg Orall y name tablet (7 s: [ mouth twice Twice a day (no sources.) Topiramate daily 1 tablet 12h phone) 50 mg, Nov, Topiramate 30 day(s) 50 mg] Active 7 actuat umeclidiniu Anticholine 08-27-19 Active take 62.5-25 An javad no umeclidiniu m / rgic, 18 - ug by Ellipta name m 0.0625 vilanterol beta2-Adren 07-05-19 inhalation 62.5-25 (no mg/actuat / Translation ergic 19 once daily MCG/INH p [place]) vilanterol s: [ Anoro Agonist Inhalation 0.025 Ellipta Once a day 1 mg/actuat 62.5-25 puff 24h 18 dry powder MCG/INH, Oct, 2017 inhaler (14 Anoro Active sources.) Ellipta 62.5-25 MCG/INH] Completed/Discontinued Medications Medication Ingredient Drug Dose Dates Status Sig Sig Care Class(es) (Normalized) (Original) Provid er hydroCHLORO hydroCHLORO Thiazide 12.5 11-05-19 Suspende no Hydrochlorot no thiazide thiazide Diuretic mg 18 d information hiaz taylor 12.5 name 12.5 mg Translation MG Orally (no oral tablet s: [ Once a day 1 phone) (4 Hydrochloro tablet in sources.) thiazide the morning 12.5 MG] 24h Oct, 30 day(s) Not-Taking nicotine 4 nicotine Cholinergic Suspende no Nicoderm CQ no mg oral Translation Nicotinic d information 21 MG/24HR name lozenge (6 s: [ Agonist Transdermal (no sources.) Nicotine Once a day phone) Polacrilex x42 days 1 4 MG, 24 HR patch to Nicotine skin 0.875 MG/HR Not-Taking Transdermal System [Nicoderm C-Q], Nicoderm CQ 21 MG/24HR] 4 mg Suspended no Nicotine no name inform Polacril (no ation ex 4 MG phone) Mouth/Th roat 20 time(s) a day 1 lozenge as needed Not-Taki ng Problems Active Problems Problem Normalized Date of Normalized Normalized Provider Fac ility Classification Problem(s) Problem Problem Problem Sta tus Onset/Resoluti Duration on Residual Acquired 06-22-2019 - Episodic Active [facility] V ia codes; absence of Shireen LOU unclassified both cervix Hospital - (3 sources.) and uterus [place] ([address]) External cause Activity, 06-22-2019 - Episodic Active CINTHIA DELUCA [facility] Via codes: 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 Translations: [address] [facility] degenerative [ Akathisia, of [place] nervous system Akathisia] [place] ([address]) conditions (20 sources.) Allergic Allergy status 06-22-2019 - Episodic Active JOVANY [facility] Via reactions (16 to other Shireen LOU sources.) drugsMD [facility] - medicaments [place] and biological (58451) substances status Translations: [ LATEX ALLERGY STATUS, ALLERGY STATUS TO PENICILLIN, ALLERGY STATUS TO OTHER ANTIBIOTIC AGENT, DERMATITIS NOS, ALLERGY STATUS TO OTHER ANTIBIOTIC AGENT, LATEX ALLERGY STATUS, ALLERGY STATUS TO OTH DRUG/MEDS/BIOL SUB] Other Arthrodesis 06-22-2019 - Episodic Active CINTHIA CARABALLO [facility] Via connective status BODY PRESS OPERATORCindy Iyer tissue disease Hospital - (3 sources.) [place] ([address]) 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 [place] [address] [facility] and disruptive hyperactivity of [facility] behavior disorder, [place] ([address]) disorders (20 predominantly sources.) inattentive type Translations: [ - Attention deficit hyperactivity disorder (ADHD), predominantly inattentive type F90.0, - Attention deficit hyperactivity disorder (ADHD), predominantly inattentive type F90.0] Attention-defi Attention-defi 06-22-2019 - Chronic Active ALYSA AGARWAL [facility] Via cit conduct cit Shireen LOU and disruptive hyperactivity [facility] (9 unspecified (83591) sources.) type External cause Bedroom of 06-22-2019 - Episodic Active CINTHIA FULLER [facility] Via codes: Place single-family STACEY Iyer of occurrence (private) Hospital - (1 source.) house as the [place] place of ([address]) occurrence of the external cause Other nervous Hayes's palsy 06-22-2019 - Episodic Active JOVANY [facility] Via system Shireen LOU disorders (4 [facility] - sources.) [place] ([address]) Acute Cerebral Chronic Active [facility] cerebrovascula infarction due JOHANN [address] [facility] Cente r r disease (20 to unspecified of [place] sources.) occlusion or [place] ([address]) stenosis of right cerebellar artery Translations: [ - Cerebrovascula r accident (CVA) due to occlusion of right cerebellar artery I63.541, - Cerebrovascula r accident (CVA) due to occlusion of right cerebellar artery I63.541] Unclassified Chronic pain Chronic Active [facility] theron (20 sources.) Translations: [address] [facility] Center [ Other of [facility] chronic pain, [place] ([address]) Other chronic pain, SLEEP RELATED HYPOVENTILATIO N IN CONDITI, OBSTRUCTIVE SLEEP APNEA (ADULT) (PEDIATR] Intracranial Concussion 06-22-2019 - Episodic Active CINTHIA CRAIN [facility] Via injury (3 without loss STACEY Iyer sources.) of Hospital - consciousness, [place] initial ([address]) encounter Other Constipation, 06-22-2019 - Episodic Active VALENTIN DUENAS [place] , [facility] Via gastrointestin unspecified DO Shireen al disorders Hospital - (7 sources.) [place] ([address]) Other Cramp and Episodic Active [facility] connective spasm [address] [place] [address] tissue disease Translations: of [facility] (20 sources.) [ - Cramping [place] ([address]) of feet R25.2, - Cramping of feet R25.2] Coma, stupor, Daytime Episodic Active [facility] ity brain damage somnolence [address] [place] [address] (20 sources.) Translations: of [facility] [ Daytime [place] ([address]259) somnolence, - Daytime somnolence R40.0, Daytime somnolence, - Daytime somnolence R40.0, Daytime sleepiness, - Daytime sleepiness R40.0] Other Diarrhea, 06-22-2019 - Episodic Active VALENTIN ARTEAGA [facility] Via gastrointestin unspecified DO Shireen al disorders Hospital - (3 sources.) [place] ([address]707) Other Dysphagia, 06-22-2019 - Episodic Active JOVANY [facility] Via gastrointestin unspecified BRUEGGEMANN , Shireen al disorders [place] Hospital - (3 sources.) [place] ([address]) Other Encounter for 06-22-2019 - Episodic Active [facility] screening for screening [address] [place] [address] suspected mamm[address] of [facility] conditions malignant [place] ([address]) (not mental neoplasm of disorders or breast infectious Translations: disease) (20 [ Abnormal sources.) mammogram of right breast, Abnormal mammogram of right breast, Abnormal mammogram of right breast] Other Essential Chronic Active [facility] hereditary and tremor [address] [place] [address] degenerative Translations: of 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 gastrointestin bowel syndrome [id number] [place], [place] [address]e al disorders Translations: of 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 JOVANY [facility] Via aftercare (3 (current) use Shireen LOU sources.) of inhaled Hospital - steroids [place] ([address]) Other [facility] 06-22-2019 - Episodic Active EDE LE [facility] Via aftercare (20 (current) use , MD Iyer sources.) of insulin [facility] (60355) Other [facility] 06-22-2019 - Episodic Active CINTHIA CARABALLO [facility] Via aftercare (2 (current) use STACEY Iyer sources.) of oral [facility] hypoglycemic [place] drugs ([address]) Other Long-term 06-22-2019 - Episodic Active TUCKER LESLIE [facility] Via aftercare (7 (current) use MD Iyer sources.) of other Hospital - medications [place] (15367) Other Muscle 06-22-2019 - Episodic Active JOVANY [facility] V ia connective weakness Shireen LOU tissue disease (generalized) Hospital - (5 sources.) [place] ([address]) Other Myalgia and 06-22-2019 - Episodic Active WHIT GANDHI [facility] connective myositis, [address] [facility] Center tissue disease unspecified of 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 (adult) Hospital - (1 source.) (pediatric) [place] ([address]) Other upper Other allergic Chronic Active WHIT GANDHI [place] [facility] respiratory rhinitis [address] [facility] Center disease (20 Translations: of [place] sources.) [ - [place] (23879) Non-seasonal allergic rhinitis due to other allergic trigger J30.89, - Non-seasonal allergic rhinitis due to other allergic trigger J30.89] Residual Other 06-22-2019 - Episodic Active JUSTIN [facility] V ia codes; postprocedural MD Shireen LEVINE unclassified status Hospital - (3 sources.) [place] (30710) Other skin Other 06-28-2019 - Episodic Active VALENTIN ARTEAGA [facility] Via disorders (1 specified DO Shireen source.) disorders of Hospital - the skin and [place] subcutaneous (62418) tissue Other nervous Paresthesia of 06-22-2019 - Episodic Active MAT UA [facility] Via system skin Shireen LOU disorders (3 MD Hospital - sources.) [place] (70503) Residual Personal 06-22-2019 - Episodic Active JOVANY [facility] V ia codes; history of Shireen LOU unclassified other Hospital - (3 sources.) complications [place] of , (63053) childbirth and the puerperium Translations: [ ACQUIRED ABSENCE OF BOTH CERVIX AND UTER] Other Personal 06-22-2019 - Episodic Active JOVANY [facility] V ia gastrointestin history of Shireen LOU al disorders other diseases MD Hospital - (4 sources.) of the [place] digestive (35391) system Other Personal 06-28-2019 - Episodic Active VALENTIN ARTEAGA , [facility] Via circulatory history 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 CLAUDE LESLIE , [facility] Via intervertebral y syndrome, MD Iyer disc lumbar region Hospital - disorders; Translations: [place] other back [ (18057) problems (6 LUMB/LUMBOSAC sources.) DISC DEGEN, OTHER INTERVERTEBRAL DISC DEGENERATION, , OTHER CERVICAL DISC DEGENERATION, UNSP C, LUMB/LUMBOSAC DISC DEGEN] Disorders of Pure 06-22-2019 - Chronic Active EDE HARRISON RT [facility] Via lipid hypercholester MD Iyer metabolism (12 olemia, Hospital - sources.) unspecified [place] Translations: (33711) [ HYPERLIPIDEMIA , UNSPECIFIED] Residual Sleep related 06-22-2019 - Chronic Active JOSÉ LYNCH IS , [facility] Via codes; 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 - (1 source.) conditions [place] classified (78175) elsewhere Other Slow transit Episodic Active [facility] ity gastrointestin constipation [address]9299 [facility] al disorders Translations: of [place] (20 sources.) [ Slow transit [place] (16732) constipation, Slow transit constipation] Other Slow transit Episodic Active [facility] ity gastrointestin constipation 36925 [facility] al disorders Translations: of [place] (20 sources.) [ - Slow [place] (41890) transit constipation K59.01, - Slow transit constipation K59.01] Adverse Unspecified 06-22-2019 - Episodic Active 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 head, initial Hospital - external encounter [place] causes (1 (91271) source.) Past or Other Problems Problem Normalized Date of Normalized Normalized Provider Fac ility Classification Problem(s) Problem Problem Problem Sta tus Onset/Resoluti Duration on External Activity, no information no information no name no information Injury - sleeping Unspecified (2 Translations: sources.) [ OTHER EXTERNAL CAUSE STATUS] NEGATED Adverse effect no information no information no name no information no of selective information (2 serotonin and sources.) norepinephrine reuptake inhibitors, initial encounter External Bedroom of no information no information no name n o information Injury - Place single-family of occurrence (private) (2 sources.) house as the place of occurrence of the external cause External Fall from bed, no information no information no name no information Injury - Fall initial (2 sources.) encounter NEGATED Hypertensive no information no information no name [facility] Via no urgency Shireen information (3 Hospital - sources.) [place] (02836) NEGATED [facility] no information no information no name no information no (current) use information (2 of oral sources.) hypoglycemic drugs NEGATED Pure no information no information no name [facility] Via no hypercholester Shireen information (6 [place], Hospital - sources.) unspecified [place] (77817) Other injuries Unspecified no information no information no nam e no information and conditions injury of due to head, initial external encounter causes (2 sources.) Procedures Procedure Normalized Procedure Procedure Result Performer Facility Date 11-04-2017 Collection venous no information no name (no phone) [facility] blood venipuncture [facility] ([id number]) 11-18-2017 Ct Head Wo-R/O Stroke no information JOVANY DURAN Via [facility] (59393) 11-18-2017 Electrocardiographic no information JOVANY FRYE Via [facility] procedure [place] (45557) 04-07-2018 [facility] visit, estab pt no information no name (no shayne ne) [facility] (44457) 03-03-2018 [facility] visit, estab pt no information no name (no shayne ne) [facility] (93545) 01-06-2018 [facility] visit, estab pt no information no name (no shayne ne) [facility] (04637) 12-07-2017 [facility] visit, estab pt no information no name (no shayne ne) [facility] (31704) 12-02-2017 [facility] visit, estab pt no information no name (no shayne ne) [facility] (26337) 11-04-2017 [facility] visit, estab pt no information no name (no shayne ne) [facility] (64432) 09-30-2017 [facility] visit, estab pt no information no name (no shayne ne) [facility] (61749) 08-25-2017 [facility] visit, estab pt no information no name (no shayne ne) [facility] (82969) 08-19-2017 [facility] visit, estab pt no information no name (no shayne ne) [facility] (00103) 07-22-2017 [facility] visit, estab pt no information no name (no shayne ne) [facility] (17212) 07-22-2018 [facility] visit, IPPE or no information no name (no phon e) [facility] AWV [facility] (72115) 11-04-2017 Hemoglobin no information no name (no phone) [facility] glycosylated a1c [facility] (82914) 11-04-2017 LAB NOT BILLED BY [facility] (73668) 09-30-2017 LAB NOT BILLED BY no information no name (no phone) [facility] (15756) 11-18-2017 Plain chest X-ray no information JOVANY DUFF NN Via [facility] (50668) Immunizations Normalized Immunization Date Notes Care Provider Facili ty Immunization influenza, seasonal, 02-16-2019 no information no name [facility] (53206) Results Test Name Value Interpretation Reference Range Date Time Fa cility (Normalized) (Normalized) (Medline Reference) No panel information on 2019-03-16 Albumin 5.0 g/dL (N) 3.4 - 5.4 g/dL [facility] [Mass/Vol] [facility] (40912) Albumin/Globulin 2.4 {ratio} (N) 1 - 2.5 {ratio} [facility] [Mass ratio] [facility] (82439) ALP [Catalytic 53 U/L (N) 44 - 147 U/L [facility] Health activity/Vol] [facility] (97863) ALT [Catalytic 20 U/L (N) 4 - 40 U/L [facility] activity/Vol] [facility] (69103) AST [Catalytic 23 U/L (N) 10 - 34 U/L [facility] Health activity/Vol] [facility] (93664) Basophils (Bld) 0.046 10*3/uL (N) 0 - 0.3 10*3/uL [facility] [#/Vol] [facility] (62008) Basophils/100 0.5 % (N) 0.5 - 1 % [facility] WBC (Bld) [facility] (46125) Bilirubin 0.3 mg/dL (N) 0.1 - 1.2 mg/dL [facility] [Mass/Vol] [facility] (86505) Calcium 10.1 mg/dL (N) 8.5 - 10.2 mg/dL [facility] [Mass/Vol] [facility] (98606) Chloride 86 mmol/L (L) 95 - 106 mmol/L [facility] [Moles/Vol] [facility] (03361) Cholesterol 154 mg/dL (N) 180 - 200 mg/dL [facility] [Mass/Vol] [facility] (46417) Cholesterol in 69 mg/dL (N) [facility] Healt h HDL [Mass/Vol] [facility] (48446) Cholesterol in 68 mg/dL (N) 0 - 100 mg/dL [facility] LDL [Mass/Vol] [facility] (70989) Cholesterol non 85 mg/dL (N) [facility] HDL [Mass/Vol] [facility] (30117) Cholesterol.tota 2.2 {ratio} (N) [facility] lth l/Cholesterol in [facility] HDL [Mass ratio] [facility] (69490) CO2 [Moles/Vol] 29 mmol/L (N) 23 - 29 mmol/L [facility] (44696) Creatinine 0.48 mg/dL (L) [facility] h [Mass/Vol] [facility] (62841) Eosinophils 0.101 10*3/uL (N) 0.05 - 0.5 [facility] He alth (Bld) [#/Vol] 10*3/uL [facility] (43191) Eosinophils/100 1.1 % (N) 1 - 4 % [facility] WBC (Bld) [facility] (59301) Erythrocyte 11.8 % (N) 11.6 - 14.6 % [facility] ealth distribution [facility] width (RBC) [facility] [Ratio] (96045) GFR/1.73 sq M 131 (N) 90 - 120 [facility] alth predicted among mL/min/{1.73_m2} mL/min/{1.73_m2} Center f [facility] blacks MDRD [facility] (S/P/Bld) [Vol (49514) rate/Area] GFR/1.73 sq 113 (N) 90 - 120 [facility] M.predicted MDRD mL/min/{1.73_m2} mL/min/{1.73_m2} [facility] (S/P/Bld) [Vol [facility] rate/Area] (54640) Globulin (S) 2.1 g/dL (N) 2 - 3.5 g/dL [facility] ealth [Mass/Vol] [facility] (01148) Glucose 113 mg/dL (H) 60 - 125 mg/dL [facility] [Mass/Vol] [facility] (09383) Hematocrit (Bld) 42.8 % (N) 36.1 - 50.3 % [facility] [Volume Center of [facility] fraction] [facility] (32097) Hemoglobin (Bld) 14.6 g/dL (N) 12.1 - 17.2 g/dL [facility] Health [Mass/Vol] [facility] (49810) Lymphocytes 3.054 10*3/uL (N) 0.9 - 2.9 [facility] (Bld) [#/Vol] 10*3/uL [facility] (64096) Lymphocytes/100 33.2 % (N) 20 - 40 % [facility] Health WBC (Bld) [facility] (76608) MCH (RBC) 30.9 pg (N) 27 - 31 pg [facility] [Entitic mass] [facility] (92921) MCHC (RBC) 34.1 g/dL (N) 32 - 36 g/dL [facility] [Mass/Vol] [facility] (66796) MCV (RBC) 90.7 fL (N) 80 - 100 fL [facility] Hea lth [Entitic vol] [facility] (99198) Monocytes (Bld) 0.543 10*3/uL (N) 0.3 - 0.9 Commun[facility] y [facility] [#/Vol] 10*3/uL [facility] (80012) Monocytes/100 5.9 % (N) 2 - 8 % [facility] WBC (Bld) [facility] (70083) Neutrophils 5.456 10*3/uL (N) 1.7 - 7 10*3/uL [facility] (Bld) [#/Vol] [facility] (36487) Neutrophils/100 59.3 % (N) 40 - 60 % [facility] Health WBC (Bld) [facility] (10180) Platelet mean 10.1 fL (N) 7.2 - 11.7 fL [facility] volume (Bld) [facility] [Entitic vol] [facility] (08541) Platelets (Bld) 303 10*3/uL (N) 150 - 450 [facility] Health [#/Vol] 10*3/uL [facility] (26298) Potassium 4.3 mmol/L (N) 3.7 - 5.2 mmol/L [facility] [Moles/Vol] [facility] (67721) Protein 7.1 g/dL (N) 6.4 - 8.3 g/dL [facility] [Mass/Vol] [facility] (70962) RBC (Bld) 4.72 10*6/uL (N) 4.2 - 6.1 [facility] Hea lth [#/Vol] 10*6/uL [facility] (75733) Sodium 123 mmol/L (L) 135 - 145 mmol/L [facility] [Moles/Vol] [facility] (63004) Triglyceride 85 mg/dL (N) 0 - 150 mg/dL [facility] [Mass/Vol] [facility] (56920) TSH Qn 2.23 m[IU]/L (N) 0.4 - 4 m[IU]/L [facility] (35707) Urea nitrogen 11 mg/dL (N) 7 - 20 mg/dL [facility] [Mass/Vol] [facility] (06386) Urea 23 mg/mg (H) 6 - 22 mg/mg [facility] He alth nitrogen/Creatin [facility] [Mass ratio] [facility] (32435) WBC (Bld) 9.2 10*3/uL (N) 3.5 - 10.5 [facility] Heal th [#/Vol] 10*3/uL [facility] (50332) venous blood hemoglobin measurement (mass/volume) on 2017-11-18 Hemoglobin (HGB) 16.1 g/dL (H) 12 - 18 g/dL Via [facility] (45203) serum or plasma urea nitrogen/creatin ine mass ratio on 2017-11-18 BUN/Creatinine 13 mg/mg (no code) 10 - 20 mg/mg Via [facility] (23444) serum or plasma urea nitrogen measurement (mass/volume) on 2017-11-18 Urea nitrogen 8 mg/dL (no code) 7 - 20 mg/dL Via [facility] (08622) serum or plasma troponin i.cardiac measurement (mass/volume) on 2017-11-18 Troponin I no information (no code) Via [facility] (77757) serum or plasma total bilirubin measurement (mass/volume) on 2017-11-18 Bilirubin 0.4 mg/dL (no code) 0.3 - 1.9 mg/dL Via [facility] (total) [facility] (67434) serum or plasma sodium measurement (moles/volume) on 2017-11-18 Sodium 128 mmol/L (L) 135 - 147 mmol/L Via [facility] (33800) serum or plasma protein measurement (mass/volume) on 2017-11-18 Protein 7.2 g/dL (no code) 6.4 - 8.3 g/dL Via [facility] (85629) serum or plasma potassium measurement (moles/volume) on 2017-11-18 Potassium 4.3 mmol/L (no code) 3.5 - 5.1 mmol/L Via [facility] (74841) serum or plasma glucose measurement (mass/volume) on 2017-11-18 Glucose 87 mg/dL (no code) 60 - 125 mg/dL Via [facility] (96059) serum or plasma creatinine measurement with calculation of estimated glomerular filtration rate on 2017-11-18 eGFR (non-black) no information (no code) Via [facility] (90967) serum or plasma creatinine measurement (mass/volume) on 2017-11-18 Creatinine 0.60 mg/dL (no code) Via [facility] (17517) serum or plasma chloride measurement (moles/volume) on 2017-11-18 Chloride 92 mmol/L (L) 95 - 106 mmol/L Via [facility] (03544) serum or plasma calcium measurement (mass/volume) on 2017-11-18 Calcium 10.3 mg/dL (H) 9 - 11 mg/dL Via [facility] (03922) serum or plasma aspartate aminotransferase measurement (enzymatic activity/volume) on 2017-11-18 Aspartate 21 U/L (no code) 10 - 34 U/L Via [facility] aminotransferase [facility] (AST) [place] (09525) serum or plasma anion gap determination (moles/volume) on 2017-11-18 Anion gap 12 mmol/L (no code) 3 - 11 mmol/L Via [facility] (19866) serum or plasma alkaline phosphatase measurement (enzymatic activity/volume) on 2017-11-18 Alkaline 55 U/L (no code) 44 - 147 U/L Via [facility] phosphatase [facility] (ALP) [place] (86053) serum or plasma albumin measurement (mass/volume) on 2017-11-18 Albumin 4.8 g/dL (H) 3.5 - 5.5 g/dL Via [facility] (46778) serum or plasma alanine aminotransferase measurement (enzymatic activity/volume) on 2017-11-18 Alanine 34 U/L (no code) 10 - 40 U/L Via [facility] aminotransferase [facility] (ALT) [place] (99831) prothrombin time (pt) in platelet poor plasma by coagulation assay on 2017-11-18 Coagulation 12.2 s (no code) Via [facility] tissue factor [facility] induced in [place] platelet poor (14234) plasma inr in platelet poor plasma or blood by coagulation assay on 2017-11-18 INR in blood by 0.9 {INR} (no code) 0.9 - 1.1 {INR} Via C hrist coagulation [facility] (99892) fibrin d-dimer feu measurement in platelet poor plasma (mass/volume) on 2017-11-18 Fibrin D-dimer 0.69 ug/mL (H) 0 - 0.5 ug/mL Via [facility] sti FEU [facility] (94733) carbon dioxide on 2017-11-18 CO2 24 mmol/L (no code) 23 - 29 mmol/L Via [facility] (26262) capillary blood glucose measurement by glucometer (mass/volume) on 2017-11-18 Glucose 96 mg/dL (no code) 60 - 125 mg/dL Via [facility] (59062) blood neutrophils automated count (number/volume) on 2017-11-18 Neutrophils 4.5 10*3/uL (no code) 1.5 - 7.8 Via [facility] 10*3/uL [facility] (80657) blood monocytes/100 leukocytes on 2017-11-18 Monocytes/100 9 % (no code) 2 - 8 % Via [facility] leukocytes [facility] (24374) blood monocytes automated count (number/volume) on 2017-11-18 Monocytes 0.8 10*3/uL (no code) 0.2 - 1.1 Via [facility] 10*3/uL [facility] (01349) blood lymphocytes automated count (number/volume) on 2017-11-18 Lymphocytes 3.0 10*3/uL (no code) 0.85 - 4.1 Via [facility] 10*3/uL [facility] (15066) blood leukocytes automated count (number/volume) on 2017-11-18 WBC (Leukocytes) 8.4 10*3/uL (no code) 3.8 - 10.8 Via [facility] 10*3/uL [facility] (19452) blood hematocrit (volume fraction) on 2017-11-18 Hematocrit (HCT) 43 % (no code) 39 - 51 % Via [facility] (34238) blood erythrocytes automated count (number/volume) on 2017-11-18 Erythrocytes 4.99 10*6/uL (no code) 4.2 - 6.1 Via [facility] (RBC) 10*6/[facility] (27191) automated erythrocyte mean corpuscular volume on 2017-11-18 MCV 87 fL (no code) 80 - 100 fL Via [facility] (05993) automated erythrocyte mean corpuscular hemoglobin concentration measurement (mass/volume) on 2017-11-18 MCHC 37 g/dL (H) 32 - 36 g/dL [facility] (69898) automated erythrocyte mean corpuscular hemoglobin (mass per erythrocyte) on 2017-11-18 MCH 32 pg (no code) 27 - 31 pg Via [facility] (09175) automated erythrocyte distribution width ratio on 2017-11-18 RDW-CA 13.4 % (no code) 11 - 15 % [facility] (57401) automated eosinophil count on 2017-11-18 Eosinophils 0.2 10*3/uL (no code) 0.05 - 1.5 Via [facility] 10*3/uL [facility] (53220) automated blood platelet mean volume measurement on 2017-11-18 Platelet mean 9.6 fL (no code) 7.2 - 11.7 fL Via [facility] volume (PMV) [facility] (42416) automated blood platelet count (count/volume) on 2017-11-18 Platelets 260 10*3/uL (no code) 150 - 400 Via [facility] 10*3/uL [facility] (51753) automated blood neutrophils/100 leukocytes on 2017-11-18 Neutrophils/100 53 % (no code) 40 - 60 % Via [facility] leukocytes [facility] (17497) automated blood lymphocytes/100 leukocytes on 2017-11-18 Lymphocytes/100 36 % (no code) 20 - 40 % Via [facility] leukocytes [facility] (20119) automated blood eosinophils/100 leukocytes on 2017-11-18 Eosinophils/100 2 % (no code) 1 - 4 % Via [facility] (54701) automated blood basophils/100 leukocytes on 2017-11-18 Basophils/100 0 % (no code) 0.5 - 1 % Via [facility] (89364) automated blood basophil count (count/volume) on 2017-11-18 Basophils 0.0 10*3/uL (no code) 0 - 0.2 10*3/uL Via [facility] (62277) activated partial thromboplastin time (aptt) in platelet poor plasma bycoagulation assay on 2017-11-18 aPTT 38 s (H) 25 - 35 s Via [facility] (77094) No panel information on 2017-11-04 Calcium mass 9.7 mg/dL (N) 8.5 - 10.2 mg/dL Not Evonne ilable conc (76272) Chloride molar 96 mmol/L (L) 95 - 106 mmol/L Not Av ailable conc (61740) CO2 molar conc 24 mmol/L (N) 23 - 29 mmol/L Not Evonne ilable (91698) Creatinine mass 0.40 mg/dL (L) Not Available conc (48355) Exp date 07/2019 (no code) [facility] (22208) GFR/1.73 sq M 140 (N) 90 - 120 Not Availabl e predicted among mL/min/{1.73_m2} mL/min/{1.73_m2} (29535) blacks MDRD vol rate/area (S/P/Bld) GFR/1.73 sq 121 (N) 90 - 120 Not Available M.predicted MDRD mL/min/{1.73_m2} mL/min/{1.73_m2} (64430) vol rate/area Glucose mass 83 mg/dL (N) 60 - 125 mg/dL Not Avail able conc (79339) Lot 5.9~5.6~0856 (no code) [facility] (34193) Natriuretic 36 pg/mL (N) 0 - 100 pg/mL no informat ion peptide B mass conc (Bld) Potassium molar 4.3 mmol/L (N) 3.7 - 5.2 mmol/L Not Available conc (41540) Sodium molar 131 mmol/L (L) 135 - 145 mmol/L Not Evonne ilable conc (05188) Thyrotropin Qn 2.07 m[IU]/L (N) 0.4 - 4 m[IU]/L Not A vailable (82488) Urea nitrogen 9 mg/dL (N) 7 - 20 mg/dL Not Availa ble mass conc (27973) Urea 23 mg/mg (H) 6 - 22 mg/mg Not Availabl e nitrogen/Creatin (95730) ine mass ratio No panel information on 2017-09-30 Alphahydroxyalpr no information (no code) [facility] azolam [facility] (85553) Alphahydroxymida no information (no code) [facility] (86946) Alphahydroxytria no information (no code) [facility] (22110) Aminoclonazepam no information (no code) [facility] (89279) Amobarbital no information (no code) [facility] (30451) Butalbital 3026 (H) [facility] (53926) Codeine no information (no code) [facility] (20033) Hydrocodone 71 (H) [facility] (84637) Hydromorphone 56 (H) [facility] (90543) Hydroxyethylflur no information (no code) [facility] (92822) Lorazepam 668 (H) [facility] (93151) Morphine no information (no code) [facility] (48218) Nordiazepam no information (no code) [facility] (23841) Norhydrocodone 259 (H) [facility] (12233) Oxazepam no information (no code) [facility] (79981) Pentobarbital no information (no code) [facility] (70759) Secobarbital no information (no code) [facility] (19120) Temazepam no information (no code) [facility] (69174) Amphetamines Ql no information (no code) [facility] (U) [facility] (38084) Barbiturates no information (A) [facility] (95356) Benzodiazepines no information (A) [facility] Screen Ql (U) [facility] (15446) Benzoylecgonine no information (no code) [facility] Ql (U) [facility] (95087) COMMENT no information (no code) [facility] Healt h [facility] (00316) Creatinine mass 6.8 mg/dL (L) Count Includes [facility] th conc (U) [facility] (35012) medMATCH CONSISTENT (no code) [facility] Aminoclonazepam [facility] (79147) medMATCH CONSISTENT (no code) [facility] ([id number]) medMATCH INCONSISTENT (no code) [facility] Amphet[facility] (70206) medMATCH aOH CONSISTENT (no code) [facility] alprazolam [facility] ([id number]) medMATCH aOH CONSISTENT (no code) [facility] midazolam [facility] (22573) medMATCH aOH CONSISTENT (no code) [facility] triazolam [facility] (80636) medMATCH INCONSISTENT (no code) [facility] Butalbital [facility] ([id number]) medMATCH Cocaine CONSISTENT (no code) [facility] Metab [facility] (99578) medMATCH Codeine CONSISTENT (no code) [facility] (06296) medMATCH CONSISTENT (no code) [facility] Hydrocodone [facility] (44436) medMATCH CONSISTENT (no code) [facility] (92952) medMATCH CONSISTENT (no code) [facility] Lorazepam [facility] (57396) medMATCH CONSISTENT (no code) [facility] Marijuana Metab [facility] (87598) medMATCH CONSISTENT (no code) [facility] Methadone Metab [facility] (80602) medMATCH CONSISTENT (no code) [facility] Morphine [facility] (26446) medMATCH CONSISTENT (no code) [facility] Nordiazepam [facility] (25254) medMATCH CONSISTENT (no code) [facility] Norhydrocodone [facility] (14714) medMATCH [place],Et CONSISTENT (no code) [facility] flurazepam [facility] (03084) medMATCH CONSISTENT (no code) [facility] Oxazepam [facility] (21658) medMATCH CONSISTENT (no code) [facility] Oxycodone [facility] (36655) medMATCH CONSISTENT (no code) [facility] Pentobarbital [facility] (28139) medMATCH CONSISTENT (no code) [facility] Phencyclidine [facility] (36708) medMATCH CONSISTENT (no code) [facility] Phenobarbital [facility] (01778) medMATCH CONSISTENT (no code) [facility] Secobarbital [facility] (84283) medMATCH CONSISTENT (no code) [facility] Temazepam [facility] (05223) Methadone Ql (U) no information (no code) [facility] Opiates Ql (U) no information (A) [facility] (63650) Oxidant no information (no code) [facility] (11639) Oxycodone no information (no code) [facility] (22460) pH (Bld) 6.21 [pH] (no code) 7.38 - 7.42 [pH] [facility] (09659) Phencyclidine Ql no information (no code) [facility] Hea lt (U) [facility] (12960) Phenobarbital no information (no code) 10 - 30 ug/mL [facility] it Health mass conc [facility] (38179) Prescribed Drug Murchison(TM) (no code) [facility] (67293) Prescribed Drug Adderall(TM) (no code) [facility] (55461) Prescribed Drug Lorazepam (no code) [facility] (61217) Specific gravity 1.003 (no code) [facility] Relative Density [facility] () [facility] (06932) Tetrahydrocannab no information (no code) [facility] inol Ql (U) [facility] (57695) No panel information on 2017-07-13 Exp date 03/2019 (no code) [facility] (57062) Lot 5.6~5.4~0812 (no code) [facility] (63007) No panel information on 2017-06-15 Exp date no information (no code) [facility] ([id number]) No panel information on 2017-01-20 Albumin 5.2 g/dL (no code) 3.4 - 5.4 g/dL 01-20-2017 Not Evonne ilable [Mass/Vol] : (21751) Albumin/Globulin 2.7 {ratio} (H) 1 - 2.5 {ratio} 7 Not Available [Mass ratio] 09: (83971) ALP [Catalytic 84 U/L (no code) 44 - 147 U/L 01-20-2017 Not Available activity/Vol] 09: (23960) ALT [Catalytic 26 U/L (no code) 4 - 40 U/L 01-20-2017 Not Av ailable activity/Vol] 09: (40875) AST [Catalytic 19 U/L (no code) 10 - 34 U/L 01-20-2017 Not A vailable activity/Vol] 09: (52263) Basophils (Bld) 0.0 10*3/uL (no code) 0 - 0.3 10*3/uL 01-20-2017 Not Available [#/Vol] 08: (48283) Basophils/100 0 % (no code) 0.5 - 1 % 01-20-2017 Not Avai lable WBC (Bld) : (79991) Bilirubin 0.3 mg/dL (no code) 0.1 - 1.2 mg/dL 01-20-2017 Not Av ailable [Mass/Vol] : (76352) Calcium 10.1 mg/dL (no code) 8.5 - 10.2 mg/dL 01-20-2017 Not Available [Mass/Vol] : (72109) Chloride 91 mmol/L (L) 95 - 106 mmol/L 01-20-2017 Not Av ailable [Moles/Vol] : (23107) Cholesterol 140 mg/dL (no code) 180 - 200 mg/dL 01-20-2017 Not Available [Mass/Vol] 09:0 (10033) Cholesterol in 73 mg/dL (no code) 01-20-2017 Not Availab le HDL [Mass/Vol] 09:0 (81291) Cholesterol in 58 mg/dL (no code) 0 - 100 mg/dL 01-20-2017 Not Available LDL [Mass/Vol] 09:0 (53341) Cholesterol in 9 mg/dL (no code) 01-20-2017 Not Availab le VLDL [Mass/Vol] :0 (57222) CO2 [Moles/Vol] 24 mmol/L (no code) 23 - 29 mmol/L 01-20-2017 N ot Available : (99993) Creatinine 0.48 mg/dL (L) 01-20-2017 Not Available [Mass/Vol] 09: (75225) Eosinophils 0.1 10*3/uL (no code) 0.05 - 0.5 01-20-2017 Not Evonne ilable (Bld) [#/Vol] 10*3/uL 08: (81427) Eosinophils/100 1 % (no code) 1 - 4 % 01-20-2017 Not Av ailable WBC (Bld) 08: (24751) Erythrocyte 14.2 % (no code) 11.6 - 14.6 % 01-20-2017 Not Av ailable distribution 08: (20867) width (RBC) [Ratio] GFR/1.73 sq M 132 (no code) 90 - 120 01-20-2017 Not Avai lable predicted among mL/min/{1.73_m2} mL/min/{1.73_m2} 09: (74270) blacks MDRD (S/P/Bld) [Vol rate/Area] GFR/1.73 sq M 115 (no code) 90 - 120 01-20-2017 Not Avai lable predicted among mL/min/{1.73_m2} mL/min/{1.73_m2} 09: (15064) non-blacks MDRD (S/P/Bld) [Vol rate/Area] Globulin (S) 1.9 g/dL (no code) 2 - 3.5 g/dL 01-20-2017 Not Av ailable [Mass/Vol] 09: (58389) Glucose 88 mg/dL (no code) 60 - 125 mg/dL 01-20-2017 Not Evonne ilable [Mass/Vol] 09: (80186) Hematocrit (Bld) 45.9 % (no code) 36.1 - 50.3 % 01-20-2017 N ot Available [Volume 08: (95382) fraction] Hemoglobin (Bld) 15.8 g/dL (no code)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
--- OUTSIDE RECORDS SUMMARY | 2019-07-17 10:36 | XMS REPORT ---
Author Author Sujey MEDINA Organization [facility] Address [address] [place] [address] Care Team Providers Care Pattern Assembler Name Role Phone JAKI MEDINA Unavailable PROBLEMS Type Condition ICD9-CM Code TFN70-LO Code Onset Dates Condition S tatus SNOMED Code Problem Mild persistent asthma without complication J45.30 Active 333815116 Problem Panlobular emphysema J43.1 Active 3778561 Problem Moderate persistent asthma without complication J4 5.40 Active 928741702 Problem Migraine without aura and without status migrain osus, not intractable G43.009 Active 858377209 Problem Diabetes E11.9 Active 04496773 Problem Akathisia G25.71 Active 852122524 Problem GERD (gastroesophageal reflux disease) K21.9 Active 132662540 Problem Fibrocystic disease of right breast N60.11 Active 59820368 Problem Back pain M54.9 Active 667566764 Problem Fibrocystic disease of left breast N60.12 Active 60802250 Problem Hypertension I10 Active 3137221 3 Problem Diffuse cystic mastopathy of left breast N60.12 Active 04692483 Problem Bipolar I disorder with depression F31.9 Active 20394734 Problem Mood disorder F39 Active 338650 05 Problem Attention deficit hyperactiv ity disorder (ADHD), predominantly inattentive type F90.0 Active 66874380 Problem Acute non-recurrent maxillary sinusitis J01.00 Active 27313872 Problem Bipolar 1 disorder, depressed, partial remission F 31.75 Active 95506866 Problem Essential tremor G25.0 Active 609 427850 Problem Schizoaffective disorder, bipolar type F25.0 Active 67257413 Problem Daytime somnolence R40.0 Active 1 72970416179 Problem Lumbago with sciatica, right side M54.41 Active 971204508 Problem Slow transit constipation K59.01 Acti ve 24293638 Problem Lumbago with sciatica, left side M54.42 Active 491481620 Problem Tinnitus of right ear H93.11 Active 90082126 Problem Bipolar 1 disorder, depressed, moderate F31.32 Active 83023329 Problem Abnormal mammogram of right breast R92.8 Active 710844114 Problem Other chronic pain G89.29 Active 8 3619052 Problem Contracture, left hand M24.542 Active 772555610675345 Problem Bipolar affective disorder, remission status unspecified F31.9 Active 03730105 Problem Tinnitus of both ears H93.13 Active 5363381578218 Problem Chronic post-traumatic stress disorder (PTSD) F43. 12 Active 269554321 Problem Diffuse cystic mastopathy of right breast N60.11 Active 08826217 Problem Hemiplegia and hemiparesis f ollowing unspecified cerebrovascular disease affecting right dominant side I69.951 Active 740490240 Problem Rheumatoid arthritis with rh eumatoid factor of right hip without organ or systems involvement M05.751 Active 28506 5006 Problem High risk medications (not anticoagulants) long-term use Z79.899 Active 213925723 Problem Irritable bowel syndrome with constipation K58.1 Active 740665955 Problem Other bipolar disorder F31.89 Active 66517788 Problem Migraine with aura and without status migrainosu s, not intractable G43.109 Active 9065459 Problem Arthritis M19.90 Active 6059995 Problem Anxiety disorder, unspecified F41.9 Active 533933983 Problem Panic disorder with agoraphobia F40.01 Active 40287778 Problem Irritable bowel syndrome with both constipation and diarrh ea K58.2 Active 76432658 Problem Fibromyalgia M79.7 Active 0336396 7 Problem Rheumatoid arthritis of left hip without organ or system involvement with positive rheumatoid factor M05.752 Active 273455843 Problem Type 2 diabetes mellitus wit h diabetic neuropathy, without long-term current use of insulin E11.40 Active 91004 006 Problem Chronic obstructive pulmonary disease, unspecified J44.9 Active 37498714 Problem 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 41.114 Active 866986414 Problem Daytime sleepiness R40.0 Active 1 [id number] ALLERGIES No Information ENCOUNTERS Encounter Location Date Diagnosis [facility] [address] [id number] [place] [address] September, [facility] [address] [facility] [place] [address] 16 Jul, 2019 [facility] [address] [address] 05 Jul, 2019 [facility] [address] [address] Jul, [facility] [address] [address] Jul, Chronic obstructive pulmonary disease, u nspecified COPD type J44.9 [place] [address] [address] 28 Jun, 2019 Diabetes E11.9 [place] [address] [address] Jun, [place] [address] [address] 24 Jun, 2019 [place] [address] [address] Jun, Other chronic pain G89.29 and Hip pain, left M25.552 [place] [address] [address] 06 Jun, 2019 Migraine with aura and without status mi grainosus, not intractable G43.109 [place] [address] [address] 31 May, 2019 [place] [address] [address] May, [place] [address] [address] 14 May, 2019 Diabetes E11.9 [facility] [address] [address] 14 May, 2019 Other chronic pain G89.29 and Hip pain, left M25.552 [place] [address] [address] 09 May, 2019 Schizoaffective disorder, bipolar type F 25.0 ; Hemiplegia and hemiparesis following unspecified cerebrovascular disease affecting right dominant side I69.951 ; Rheumatoid arthritis of left hip without organ or system involvement with positive rheumatoid factor M05.752 ; Chronic obstructive pulmonary disease, unspecified J44.9 ; Type 2 diabetes mellitus with diabetic neuropathy, without long-term current use of insulin E11.40 and Soft tissue lesion of elbow region M79.89 [place] [address] [address] 09 May, 2019 Bipolar 1 disorder, depressed, moderate F31.32 ; Panic disorder with agoraphobia F40.01 ; Chronic post-traumatic stress disorder (PTSD) F43.12 ; High risk medications (not anticoagulants) long-term use Z79.899 and Diabetes E11.9 [place] [address] [address] 17 Apr, 2019 Diabetes E11.9 ; Other chronic pain G89. 29 and Hip pain, left M25.552 [place] [address] [address] 16 Apr, 2019 Bloating R14.0 [place] [address] [address] 13 Apr, 2019 Bloating R14.0 ; Slow transit constipati on K59.01 and Generalized abdominal mass R19.07 [place] [address] [address] 10 Apr, 2019 [place] [address] [address] Apr, [place] [address] [address] 05 Apr, 2019 Bloating R14.0 ; Slow transit constipati on K59.01 and Generalized abdominal mass R19.07 [place] [address] [address] Mar, Diabetes E11.9 and Other chronic pain G8 9.29 [place] [address] [address] Mar, [place] [address] [address] 07 Mar, 2019 Edema, lower extremity R60.0 and Diabete s E11.9 [place] [address] [address] Mar, [place] [address] [address] 23 Feb, 2019 Diabetes E11.9 and Other chronic pain G8 9.29 [place] [address] [address] 16 Feb, 2019 [place] [address] [address] 14 Feb, 2019 [place] [address] [address] Feb, [place] [address] [address] Feb, Bronchitis J40 and Encounter for immuniz ation Z23 [address] [address] 26 Jan, 2019 Diabetes E11.9 and Other chronic pain G8 9.29 [place] [address] [address] Jan, Hypertension I10 [address] [address] 16 Jan, 2019 Daytime somnolence R40.0 [place] [address] [address] 12 Jan, 2019 Open wound of left elbow, initial encoun ter S51.002A and 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41.[address] [address] 09 Jan, 2019 Diabetes E11.9 and Other chronic pain G8 9.[address] [address] Jan, [place] [address] [address] Jan, Daytime sleepiness R40.0 [facility] [address] [address] Jan, [facility] [address] [address] Jan, [facility] [address] [address] Jan, [facility] [address] [address] Dec, Diabetes E11.9 and Other chronic pain G8 9.29 [facility] [address] [address] Dec, [facility] [address] [address] Dec, [place] [address] [address] Dec, Abdominal spasms R10.9 ; Rheumatoid arth ritis with rheumatoid factor of right hip without organ or systems involvement M05.751 ; Rheumatoid arthritis of left hip without organ or system involvement with positive rheumatoid factor M05.752 and Type 2 diabetes mellitus with diabetic neuropathy, without long-term current use of insulin E11.40 [place] [address] [address] Dec, Diabetes E11.9 and Other chronic pain G8 9.29 [facility] [address] [address] Nov, [facility] [address] [address] Nov, Hip pain, left M25.552 [facility] [address] [address] Nov, [facility] [address] [address] Nov, [facility] [address] [address] Nov, Hemiplegia and hemiparesis following uns pecified cerebrovascular disease affecting right dominant side I69.951 ; Diabetes E11.9 ; Daytime somnolence R40.0 and Other chronic pain G89.29 [facility] [address] [place] [id number] [place] [address] Nov, [facility] [address] [address] Nov, [facility] [address] [address] Nov, Hemiplegia and hemiparesis following uns pecified cerebrovascular disease affecting right dominant side I69.951 ; Lower leg edema R60.0 and Plantar fasciitis, bilateral M72.2 [facility] [address] [address] [place] [address] Oct, [facility] [address] [address] Oct, Daytime somnolence R40.0 ; Diabetes E11. 9 and Other chronic pain G89.29 [facility] [address] [place] [address] Oct, Edema, lower extremity R60.0 and Hip higinio n, left M25.552 [facility] [address] [id number] [place] [address] Oct, [facility] [address] [address] September, [facility] [id number] [place] [address] September, Diabetes E11.9 and Other chronic pain G8 9.29 [facility] [address] [place] [address] September, Diabetes E11.9 and Other chronic pain G8 9.29 [facility] [address] [address] September, [facility] [address] [address] Aug, [place] [address] [address] Aug, Hypertension I10 [place] [address] [address] Aug, [place] [address] [address] Aug, [place] [address] [address] Aug, Diabetes E11.9 and Edema of both legs R6 0.[address] [address] Aug, Panic disorder with agoraphobia F40.01 ; Other chronic pain G89.29 and Daytime somnolence R40.0 [place] [address] [address] Jul, [place] [address] [address] Jul, [address] [address] Jul, Diffuse cystic mastopathy of left breast N60.12 and Diffuse cystic mastopathy of right breast N60.[address] [address] Jul, Fibrocystic disease of right breast N60. 11 [place] [address] [address] Jul, Fibrocystic disease of right breast N60. 11 and Fibrocystic disease of left breast N60.[address] [address] Jul, Encounter for Medicare annual wellness e xam Z00.00 ; Schizoaffective disorder, bipolar type F25.0 ; Chronic obstructive pulmonary disease, unspecified J44.9 ; Fibromyalgia M79.7 and Acute non-recurrent maxillary sinusitis J01.00 [place] [address] [address] 14 Jul, 2018 Daytime somnolence R40.0 [place] [address] [address] 14 Jul, 2018 [place] [address] [address] 13 Jul, 2018 [place] [address] [address] 12 Jul, 2018 Panic disorder with agoraphobia F40.01 ; Anxiety disorder, unspecified F41.9 ; Other chronic pain G89.29 and Daytime somnolence R40.0 [place] [address] [address] Jul, [place] [address] [address] 28 Jun, 2018 [place] [address] [address] 08 Jun, 2018 Hip pain, left M25.552 ; Leg pain, left M79.605 ; Lumbar pain M54.5 and Mood disorder F39 [place] [address] [address] 08 Jun, 2018 Diabetes E11.9 ; Other chronic pain G89. 29 and Anxiety disorder, unspecified F41.9 [place] [address] [address] 07 Jun, 2018 Hip pain, left M25.552 ; Leg pain, left M79.605 ; Lumbar pain M54.5 and Mood disorder F39 [place] [address] [address] May, Diabetes E11.9 [place] [address] [address] May, [place] [address] [place] [id number] May, Other chronic pain G89.29 and Anxiety di sorder, unspecified F41.9 [place] [address] [address] May, [place] [address] [address] May, [place] [address] [address] May, Tinnitus of right ear H93.11 [place] [address] [address] May, Diabetes E11.9 ; Tinnitus of both ears H 93.13 ; Contracture, left hand M24.542 and Family history of rheumatic joint disease Z82.69 [place] [address] [address] Apr, [place] [address] [address] Apr, [place] [address] [address] Apr, Tinnitus of right ear H93.11 and Hyperte nsion I10 [place] [address] [address] Apr, Other chronic pain G89.29 ; Daytime somn olence R40.0 and Anxiety disorder, unspecified F41.9 [place] [address] [address] Apr, [place] [address] [address] Apr, [place] [address] [address] Mar, Tinnitus of right ear H93.11 [place] [address] [address] Mar, [place] [address] [address] Mar, Anxiety disorder, unspecified F41.9 ; Ot her chronic pain G89.29 and Daytime somnolence R40.0 [place] [address] [address] Mar, Irritable bowel syndrome with both const ipation and diarrhea K58.2 [place] [address] [address] Mar, [place] [address] [address] Mar, Hypertension I10 [place] [address] [address] Mar, [place] [address] [address] Mar, [place] [address] [address] Mar, [place] [address] [address] Mar, Diabetes E11.9 [place] [address] [address] Mar, [place] [address] [address] Feb, Daytime somnolence R40.0 and Anxiety dis order, unspecified F41.9 [place] [address] [address] Feb, [place] [address] [address] Feb, [place] [address] [address] Feb, Tremors of nervous system R25.1 and Acut e swimmer''s ear of right side H60.331 [place] [address] [address] Feb, Cerebrovascular accident (CVA) due to oc clusion of right cerebellar artery I63.541 and Hypertension I10 [facility] [address] [address] Feb, [facility] [address] [address] Feb, Cerebrovascular accident (CVA) due to oc clusion of right cerebellar artery I63.541 [place] [address] [place] [id number] Feb, Hyponatremia E87.1 [place] [address] [address] Feb, [place] [address] [address] Feb, Daytime somnolence R40.0 [place] [address] [address] Feb, [place] [address] [address] Jan, [facility] [address] [address] Jan, [place] [address] [address] Jan, Chronic obstructive pulmonary disease, u nspecified J44.9 and Anxiety disorder, unspecified F41.9 [place] [address] [address] Jan, Hypertension I10 ; Fibromyalgia M79.7 an d Lumbago with sciatica, left side M54.42 [facility] [address] [address] Jan, [place] [address] [address] 20 Jan, 2018 Cerebrovascular accident (CVA) due to oc clusion of right cerebellar artery I63.541 [place] [address] [address] 19 Jan, 2018 [place] [address] [address] 13 Jan, 2018 Arthritis M19.90 [place] [address] [address] 07 Jan, 2018 [place] [address] [address] 04 Jan, 2018 Abnormal mammogram of right breast R92.8 [place] [address] [address] Dec, Daytime somnolence R40.0 and Right otiti s media with effusion H65.91 [place] [address] [address] Dec, [place] [address] [address] Dec, Cerebrovascular accident (CVA) due to oc clusion of right cerebellar artery I63.541 [place] [address] [address] Dec, [place] [address] [address] Dec, [place] [address] [address] Nov, Bipolar 1 disorder, depressed, partial r emission F31.75 and Panic disorder with agoraphobia F40.01 [place] [address] [address] Nov, Panlobular emphysema J43.1 [place] [address] [address] Nov, Cerebrovascular accident (CVA) due to oc clusion of right cerebellar artery I63.541 and Acute non-recurrent maxillary sinusitis J01.00 [place] [address] [address] 24 [place], 2018 Panlobular emphysema J43.1 [facility] [address] [address] Nov, [facility] [address] [address] Nov, [facility] [address] [address] Nov, [facility] [address] [address] Nov, [facility] [address] [address] Nov, [facility] [address] [address] Nov, [facility] [address] [address] Nov, [facility] [address] [address] Nov, Mild persistent asthma without complicat ion J45.30 and Irritable bowel syndrome with both constipation and diarrhea K58.2 [place] [address] [address] Nov, [facility] [address] [address] Oct, [facility] [address] [address] Oct, [facility] [address] [address] Oct, Type 2 diabetes mellitus with diabetic n europathy, unspecified whether half-way insulin use E11.40 ; Diabetes E11.9 ; Slow transit constipation K59.01 ; Edema of both legs R60.0 and Dysfunction of right eustachian tube H69.81 [facility] [address] [address] Oct, Frequent headaches R51 [facility] [address] [address] Oct, [facility] [address] [address] Oct, [facility] [address] [address] Oct, [facility] [address] [address] Oct, [facility] [address] [address] Oct, [facility] [address] [address] Oct, [facility] [address] [address] Oct, [facility] [address] [address] Oct, [facility] [address] [address] September, Frequent headaches R51 [facility] [address] [address] September, Bilateral otitis media with effusion H65 .93 ; Dizziness R42 and Essential tremor G25.0 [facility] [address] [address] September, Chronic obstructive pulmonary disease, u nspecified COPD type J44.9 [facility] [address] [address] September, Chronic obstructive pulmonary disease, u nspecified COPD type J44.9 [facility] [address] [address] September, Migraine without aura and without status migrainosus, not intractable G43.009 [facility] [address] [address] September, [facility] [address] [address] September, [place] [address] [address] September, [place] [address] [place] [id number] September, Frequent headaches R51 [place] [address] [address] Aug, [place] [address] [address] Aug, Breast mass, right N63.10 [place] [address] [address] Aug, Breast lump N63.0 [place] [address] [address] Aug, [place] [address] [address] Aug, Bipolar affective disorder, remission st atus unspecified F31.9 and Diabetes E11.9 [place] [address] [address] Aug, Diabetes E11.9 ; Schizoaffective disorde r, bipolar type F25.0 ; Pharyngitis due to other organism J02.8 ; Panlobular emphysema J43.1 and Irritable bowel syndrome with both constipation and diarrhea K58.2 [place] [address] [address] Aug, Abnormal mammogram R92.8 [place] [address] [address] Aug, [address] [address] Aug, Bipolar 1 disorder, depressed, moderate F31.32 ; Panic disorder with agoraphobia F40.01 and Chronic post-traumatic stress disorder (PTSD) F43.12 [place] [address] [address] Aug, [facility] [address] [address] Aug, [facility] [address] [address] Aug, [facility] [address] [address] Jul, [facility] [address] [address] Jul, Mild persistent asthma without complicat ion J45.30 [facility] [address] [address] Jul, Mild persistent asthma without complicat ion J45.30 [facility] [address] [address] 15 Jul, 2017 Bipolar affective disorder, remission st atus unspecified F31.9 ; Diabetes E11.9 and Irritable bowel syndrome with constipation K58.1 [place] [address] [address] Jul, [facility] [address] [address] Jul, [facility] [address] [address] Jul, Frequent headaches R51 [place] [address] [address] Jul, [facility] [address] [address] Jul, [facility] [address] [address] Jul, [place] [address] [address] Jul, Frequent headaches R51 ; Fibrocystic dis ease of left breast N60.12 ; Fibrocystic disease of right breast N60.11 and Diabetes E11.9 [place] [address] [address] Jul, [facility] [id number] [place] [address] Jul, [facility] [id number] [place] [address] Jun, Exudative tonsillitis J03.90 [facility] [address] [address] Jun, [facility] [address] [address] Jun, [facility] [address] [address] 15 Jun, 2017 Mild persistent asthma without complicat ion J45.30 ; Chronic obstructive pulmonary disease, unspecified COPD type J44.9 and Exudative tonsillitis J03.90 [place] [address] [address] 13 Jun, 2017 Encounter for immunization Z23 [facility] [address] [address] Jun, [facility] [address] [address] Jun, [facility] [address] [place] [id number] [place] [address] 09 Jun, 2017 [facility] [address] [facility] [id number] [place] [address] 06 Jun, 2017 Tonsillitis J03.90 [facility] [address] [place] [id number] [place] [address] 05 Jun, 2017 [facility] [address] [address] 03 Jun, 2017 Acute non-recurrent maxillary sinusitis J01.00 [facility] [address] [address] Jun, [facility] [address] [address] May, [place] [address] [address] May, [place] [address] [address] May, GERD (gastroesophageal reflux disease) K 21.9 [place] [address] [address] May, Migraine without aura and without status migrainosus, not intractable G43.009 [place] [address] [address] May, [place] [address] [address] May, [place] [address] [address] May, Panlobular emphysema J43.1 and Acute non -recurrent maxillary sinusitis J01.00 [place] [address] [address] May, Bipolar 1 disorder, depressed, moderate F31.32 ; Panic disorder with agoraphobia F40.01 and Akathisia G25.71 [place] [address] [address] Apr, [place] [address] [address] Apr, [place] [address] [address] Apr, Acute non-recurrent maxillary sinusitis J01.00 [place] [address] [address] 07 Apr, 2017 Panlobular emphysema J43.1 [place] [address] [address] 04 Apr, 2017 [facility] [address] [facility] [id number] [place] [address] 04 Apr, 2017 Exudative tonsillitis J03.90 and Sore throat J02.9 [place] [address] [address] Mar, [place] [address] [address] Mar, Acute non-recurrent maxillary sinusitis J01.00 [place] [address] [address] Mar, [place] [address] [address] Mar, Panlobular emphysema J43.1 and Diabetes E11.9 [place] [address] [address] Mar, [facility] [address] [facility] [id number] [place] [address] Feb, Wheezing R06.2 and Acute rec urrent pansinusitis J01.41 [place] [address] [address] Feb, [place] [address] [address] Feb, Acute non-recurrent maxillary sinusitis J01.00 [place] [address] [address] Feb, Chronic obstructive pulmonary disease, u nspecified J44.9 [place] [address] [address] Feb, Hypoxemia R09.02 and Chronic obstructive pulmonary disease, unspecified J44.9 [place] [address] [address] Jan, Bipolar 1 disorder, depressed, moderate F31.32 ; Panic disorder with agoraphobia F40.01 ; Chronic post-traumatic stress disorder (PTSD) F43.12 ; Diabetes E11.9 and Moderate persistent asthma without complication J45.40 [facility] [address] [address] 22 Jan, 2017 [facility] [address] [address] 19 Jan, 2017 Acute non-recurrent maxillary sinusitis J01.00 [facility] [address] [address] 18 Jan, 2017 [facility] [address] [address] 18 Jan, 2017 [facility] [address] [address] 12 Jan, 2017 Moderate persistent asthma without compl ication J45.40 and Hypoxemia R09.02 [facility] [address] [address] Jan, Moderate persistent asthma without compl ication J45.40 and Hypoxemia R09.02 [facility] [address] [address] Jan, [facility] [address] [address] Dec, Acute non-recurrent maxillary sinusitis J01.00 [facility] [address] [address] Dec, Chronic obstructive pulmonary disease, u nspecified J44.9 [facility] [address] [address] Dec, [facility] [address] [address] Dec, Mild persistent asthma without complicat ion J45.30 and Other chronic pain G89.29 [facility] [address] [address] Nov, [facility] [address] [address] Nov, Acute non-recurrent maxillary sinusitis J01.00 [facility] [address] [address] Nov, [facility] [address] [address] Nov, [facility] [address] [address] Oct, [facility] [address] [address] Oct, Bipolar 1 disorder, depressed, partial r emission F31.75 ; Panic disorder with agoraphobia F40.01 and Chronic post-traumatic stress disorder (PTSD) F43.12 [place] [address] [address] Oct, Acute non-recurrent maxillary sinusitis J01.00 [place] [address] [address] Oct, [facility] [address] [address] Oct, Diabetes E11.9 [facility] [address] [address] September, Diabetes E11.9 [place] [address] [address] September, Diabetes E11.9 and Sinus tachycardia R00 .0 [facility] [address] [address] September, [facility] [address] [address] September, [facility] [address] [address] Aug, Diabetes E11.9 and Lumbago with sciatica , right side M54.41 [facility] [address] [address] Aug, [facility] [address] [address] 30 Mar, 2017 Bipolar 1 disorder, depressed, moderate F31.32 ; Panic disorder with agoraphobia F40.01 and Chronic post-traumatic stress disorder (PTSD) F43.12 [facility] [address] [address] Jul, Sore throat J02.9 [facility] [address] [address] Jul, [facility] [address] [address] Jul, [facility] [address] [address] Jul, [facility] [address] [address] Jul, [facility] [address] [address] Jul, Sore throat J02.9 and Pharyngitis, unspe cified etiology J02.9 [facility] [address] [address] Jun, [facility] [address] [address] 23 Jun, 2016 Diabetes E11.9 [facility] [address] [address] Jun, [facility] [address] [address] Jun, [facility] [address] [address] Jun, [facility] [address] [address] Jun, [facility] [address] [address] 16 Jun, 2016 [facility] [address] [address] 15 Jun, 2016 [place] [address] [address] 10 Jun, 2016 [place] [address] [address] Jun, [place] [address] [address] May, Diabetes E11.9 ; Other chronic pain G89. 29 ; Acute recurrent maxillary sinusitis J01.01 ; Bipolar I disorder with depression F31.9 and Anxiety disorder, unspecified F41.9 [place] [address] [address] May, [place] [address] [address] May, Diabetes E11.9 ; Bipolar I disorder with depression F31.9 ; Anxiety disorder, unspecified F41.9 ; Other chronic pain G89.29 and Acute recurrent maxillary sinusitis J01.01 [place] [address] [address] May, [place] [address] [address] May, Attention deficit hyperactivity disorder (ADHD), predominantly inattentive type F90.0 [place] [address] [address] May, [place] [address] [address] Apr, Attention deficit hyperactivity disorder (ADHD), predominantly inattentive type F90.0 and Non-seasonal allergic rhinitis due to other allergic trigger J30.89 [place] [address] [address] Apr, Bipolar 1 disorder, depressed, moderate F31.32 ; Panic disorder with agoraphobia F40.01 and Chronic post-traumatic stress disorder (PTSD) F43.[address] [address] 06 Apr, 2016 Dental examination Z01.20 [facility] [address] [address] Mar, [facility] [address] [address] Mar, [facility] [address] [address] Mar, Bipolar I disorder with depression F31.9 and Anxiety disorder, unspecified F41.9 [place] [address] [address] 08 Mar, 2016 Panic disorder with agoraphobia F40.01 ; Bipolar 1 disorder, depressed, moderate F31.32 and Chronic post-traumatic stress disorder (PTSD) F43.12 [place] [address] [address] Mar, [place] [address] [address] Mar, Dental caries K02.9 [place] [address] [address] 24 Feb, 2016 Lumbago with sciatica, left side M54.42 ; Lumbago with sciatica, right side M54.41 and Other chronic pain G89.29 [place] [address] [address] Feb, [place] [address] [address] 14 Feb, 2016 [place] [address] [address] 13 Feb, 2016 Bipolar I disorder with depression F31.9 ; PTSD (post-traumatic stress disorder) F43.10 and Mood disorder F39 [place] [address] [address] 13 Feb, 2016 [place] [address] [address] 11 Feb, 2016 Dental examination Z01.20 [place] [address] [address] Feb, [facility] [address] [facility] [id number] [address] [address] Feb, Acute bronchitis, unspecifie d organism J20.9 [facility] [address] [address] Jan, Mood disorder F39 ; Migraine without aur a and without status migrainosus, not intractable G43.009 ; Irritable bowel syndrome, unspecified type K58.9 ; Diabetes E11.9 and Encounter for immunization Z23 [place] [address] [address] Jan, [place] [address] [address] Jan, [place] [address] [address] Jan, [place] [address] [address] Jan, [place] [address] [address] Jan, [place] [address] [address] Dec, Bipolar I disorder with depression F31.9 ; PTSD (post-traumatic stress disorder) F43.10 and Panic disorder with agoraphobia F40.01 [place] [address] [address] Dec, Chronic obstructive pulmonary disease, u nspecified COPD type J44.9 ; Tremor R25.1 and Anxiety F41.9 [place] [address] [address] Dec, [place] [address] [address] Nov, Tremors of nervous system R25.1 and Cram ping of feet R25.2 [place] [address] [address] Nov, [place] [address] [address] Nov, [place] [address] [address] Oct, Chronic obstructive pulmonary disease, u nspecified J44.9 [place] [address] [address] Oct, [place] [address] [address] Oct, Tremor R25.1 [place] [address] [address] Oct, Bipolar I disorder with depression F31.9 ; Diabetes E11.9 ; PTSD (post-traumatic stress disorder) F43.10 and Panic disorder with agoraphobia F40.01 [place] [address] [address] Oct, Mood disorder F39 [place] [address] [address] September, [place] [address] [address] September, Diabetes E11.9 ; Bipolar I disorder with depression F31.9 ; PTSD (post-traumatic stress disorder) F43.10 and Panic disorder with agoraphobia F40.01 [place] [address] [address] September, Mood disorder F39 ; Schizoaffective diso rder, unspecified type F25.9 ; Arthritis M19.90 ; Tremor R25.1 ; Acute non-recurrent frontal sinusitis J01.10 and Blood in stool K92.1 [place] [address] [address] September, [place] [address] [address] September, Chronic obstructive pulmonary disease, u nspecified J44.9 [facility] [address] [address] September, Diabetes E11.9 [facility] [address] [place] [id number] [place] [address] Aug, Other bipolar disorder F31.89 and Anxiet y disorder, unspecified F41.9 [facility] [address] [address] Aug, [facility] [address] [address] Aug, Diabetes E11.9 [facility] [address] [address] Aug, [place] [address] [address] Aug, Diabetes E11.9 ; Fatigue R53.83 and Dizz iness R42 [facility] [address] [place] [id number] [place] [address] Aug, Other bipolar disorder F31.89 [place] [address] [address] Aug, Generalized anxiety disorder F41.1 [place] [address] [address] Aug, Other bipolar disorder F31.89 and Anxiet y disorder, unspecified F41.9 [facility] [address] [id number] [place] [address] Aug, [facility] [address] [place] [id number] [place] [address] Jul, [facility] [address] [address] Jul, [facility] [address] [address] Jul, Bronchitis J40 [facility] [address] [address] Jul, Anxiety disorder F41.9 [facility] [address] [address] Jul, Other bipolar disorder F31.89 and Anxiet y disorder, unspecified F41.9 [facility] [address] [address] 18 Jul, 2015 Other bipolar disorder F31.89 and Fibrom yalgia M79.7 [facility] [address] [address] 10 Jul, 2015 [place] [address] [address] 09 Jul, 2015 [facility] [address] [address] 08 Jul, 2015 [place] [address] [address] 08 Jul, 2015 Other bipolar disorder F31.89 and Anxiet y disorder, unspecified F41.9 [place] [id number] [address] Jun, GERD (gastroesophageal reflux disease) K 21.9 [place] [address] [address] 08 Jun, 2015 [place] [address] [address] May, [facility] [address] [address] May, Diabetes E11.9 ; Back pain M54.9 ; GERD (gastroesophageal reflux disease) K21.9 ; Hypertension I10 and Peripheral neuropathy G62.9 [place] [address] [address] Mar, [facility] [address] [address] Mar, [facility] [address] [address] Mar, Acute sinusitis J01.90 and Otitis media, left H66.92 [facility] [address] [address] Feb, [facility] [address] [address] Feb, [facility] [address] [address] Feb, [facility] [address] [address] Feb, [facility] [address] [address] Jan, [facility] [address] [address] Jan, Diabetes 250.00 and Back pain 724.5 [facility] [address] [address] Jan, [facility] [address] [address] Dec, Diabetes 250.00 ; Benign essential hyper tension 401.1 and Allergic rhinitis 477.9 [facility] [address] [address] Dec, [facility] [address] [address] Dec, [facility] [address] [address] Dec, Psychosis 298.9 [facility] [address] [address] Dec, Medication side effect 995.20 and Genera lized anxiety disorder 300.02 [facility] [address] [address] Dec, Acquired cognitive dysfunction 294.9 [facility] [address] [address] Dec, [facility] [address] [place] [id number] [place] [address] Dec, Unspecified myalgia and myositis 729.1 a nd Generalized anxiety disorder 300.02 [facility] [address] [place] [id number] [place] [address] Nov, [facility] [address] [place] [id number] [place] [address] Nov, [facility] [address] [place] [id number] [place] [address] Nov, [facility] [address] [place] [id number] [place] [address] Nov, Upper respiratory infection 465.9 and Ch ronic airway obstruction, not elsewhere classified 496 [facility] [address] [id number] [place] [address] Nov, Hyponatremia 276.1 [facility] [address] [place] [id number] [place] [address] Oct, [facility] [address] [place] [id number] [place] [address] Oct, [facility] [address] [place] [id number] [place] [address] Oct, [facility] [address] [place] [id number] [place] [address] Oct, [facility] [address] [place] [id number] [place] [address] Oct, Hyponatremia 276.1 [facility] [address] [place] [id number] [place] [address] Oct, [facility] [address] [id number] [place] [address] Oct, [facility] [address] [place] [id number] [place] [address] Oct, Generalized anxiety disorder 300.02 [facility] [id number] [place] [address] Oct, Generalized anxiety disorder 300.02 and Diabetes 250.00 [facility] [address] [place] [id number] [place] [address] 14 Aug, 2014 [facility] [address] [place] [id number] [place] [address] Aug, [facility] [address] [place] [id number] [place] [address] Jul, [facility] [address] [place] [id number] [place] [address] Jul, [facility] [address] [place] [id number] [place] [address] Jun, [facility] [address] [place] [id number] [place] [address] Jun, [facility] [address] [place] [id number] [place] [address] Jun, [facility] [address] [place] [id number] [place] [address] Jun, [facility] [address] [place] [id number] [place] [address] Jun, [facility] [address] [place] [id number] [place] [address] May, [facility] [address] [place] [id number] [place] [address] May, [facility] [address] [place] [id number] [place] [address] Apr, [facility] [address] [place] [id number] [place] [address] Apr, [facility] [address] [place] [id number] [place] [address] Apr, [facility] [address] [place] [id number] [place] [address] Apr, [facility] [address] [place] [id number] [place] [address] Apr, [facility] [address] [id number] [place] [address] Apr, 2012 [facility] [address] [id number] [place] [address] Apr, [facility] [address] [id number] [place] [address] Apr, [facility] [address] [id number] [place] [address] Feb, [facility] [address] [id number] [place] [address] Feb, [facility] [address] [id number] [place] [address] Jan, [facility] [address] [id number] [place] [address] Jan, [facility] [address] [id number] [place] [address] Dec, [facility] [address] [id number] [place] [address] Dec, [facility] [address] [id number] [place] [address] Dec, [facility] [address] [id number] [place] [address] Nov, [facility] [address] [id number] [place] [address] Nov, [facility] [address] [id number] [place] [address] Nov, [facility] [address] [id number] [place] [address] Oct, [facility] [address] [id number] [place] [address] Oct, [facility] [address] [id number] [place] [address] Oct, [facility] [address] [id number] [place] [address] September, [facility] [address] [facility] [id number] [facility] [place] [address] September, [facility] [address] [id number] [place] [address] September, [facility] [address] [id number] [place] [address] Aug, [facility] [address] [id number] [place] [address] Aug, [facility] [address] [id number] [place] [address] Aug, [facility] [address] [id number] [place] [address] 16 Aug, 2011 [facility] [address] [id number] [place] [address] Jul, [facility] [address] [id number] [place] [address] Jun, [facility] [address] [id number] [place] [address] Jun, [facility] [address] [id number] [place] [address] Jun, [facility] [address] [id number] [place] [address] Jun, [facility] [address] [id number] [place] [address] Jun, [facility] [address] [id number] [place] [address] May, [facility] [address] [id number] [place] [address] May, [facility] [address] [id number] [place] [address] May, [facility] [address] [id number] [place] [address] May, [facility] [address] [id number] [place] [address] Apr, [facility] [address] [id number] [place] [address] Apr, [facility] [address] [id number] [place] [address] Apr, [facility] [address] [id number] [place] [address] Mar, [facility] [address] [id number] [place] [address] Mar, [facility] [address] [id number] [place] [address] Mar, [facility] [address] [id number] [place] [address] Feb, [facility] [address] [id number] [place] [address] Feb, [facility] [address] [id number] [place] [address] Feb, [facility] [address] [id number] [place] [address] Nov, [facility] [address] [id number] [place] [address] September, [facility] [address] [id number] [place] [address] Aug, [facility] [address] [id number] [place] [address] Jul, [facility] [address] [id number] [place] [address] May, [facility] [address] [id number] [place] [address] Apr, [facility] [address] [id number] [place] [address] Apr, [facility] [address] [id number] [place] [address] Apr, [facility] [address] [facility] [id number] [place] [address] Apr, [facility] [address] [facility] [id number] [place] [address] Apr, IMMUNIZATIONS No Known Immunizations SOCIAL HISTORY [...] disorder) Medical History stroke Medical History Diverticulitis Medical History RA Surgical History RIGHT BREAST LUMPECTOMY Surgical History HYSTERECTOMY Surgical History CSECTION X3 Surgical History BILAT KNEE SURGERY Surgical History RIGHT ANKLE SURGERY X2 Surgical History NECK FUSION AND SPINAL FUSION Surgical History colonoscopy & EGD 10/16/2015 Hospitalization History surgeries Hospitalization History hospitalized for one night for chest pains 03/2017 Hospitalization History stroke 11/18/2017
--- OUTSIDE RECORDS SUMMARY | 2019-07-17 10:37 | XMS REPORT ---
Author Author Sujey MEDINA Organization [facility] Address [address] [place] [address] Care Team Providers Care Nuisance Wildlife Specialist Name Role Phone JAKI MEDINA Unavailable PROBLEMS Type Condition ICD9-CM Code MQX15-PM Code Onset Dates Condition S tatus SNOMED Code Problem Mild persistent asthma without complication J45.30 Active 267793901 Problem Panlobular emphysema J43.1 Active 8747032 Problem Moderate persistent asthma without complication J4 5.40 Active 775082578 Problem Migraine without aura and without status migrain osus, not intractable G43.009 Active 113355993 Problem Diabetes E11.9 Active 66886748 Problem Akathisia G25.71 Active 631908545 Problem GERD (gastroesophageal reflux disease) K21.9 Active 492150266 Problem Fibrocystic disease of right breast N60.11 Active 47465666 Problem Back pain M54.9 Active 903194581 Problem Fibrocystic disease of left breast N60.12 Active 76282951 Problem Hypertension I10 Active 7643904 3 Problem Diffuse cystic mastopathy of left breast N60.12 Active 31442017 Problem Bipolar I disorder with depression F31.9 Active 26057784 Problem Mood disorder F39 Active 605769 05 Problem Attention deficit hyperactiv ity disorder (ADHD), predominantly inattentive type F90.0 Active 48403354 Problem Acute non-recurrent maxillary sinusitis J01.00 Active 67476163 Problem Bipolar 1 disorder, depressed, partial remission F 31.75 Active 29952852 Problem Essential tremor G25.0 Active 609 297566 Problem Schizoaffective disorder, bipolar type F25.0 Active 11140131 Problem Daytime somnolence R40.0 Active 1 10394227059 Problem Lumbago with sciatica, right side M54.41 Active 150961981 Problem Slow transit constipation K59.01 Acti ve 30723585 Problem Lumbago with sciatica, left side M54.42 Active 066121093 Problem Tinnitus of right ear H93.11 Active 16398462 Problem Bipolar 1 disorder, depressed, moderate F31.32 Active 01001434 Problem Abnormal mammogram of right breast R92.8 Active 789283039 Problem Other chronic pain G89.29 Active 8 8667933 Problem Contracture, left hand M24.542 Active 681435646358887 Problem Bipolar affective disorder, remission status unspecified F31.9 Active 56848037 Problem Tinnitus of both ears H93.13 Active 2257247293127 Problem Chronic post-traumatic stress disorder (PTSD) F43. 12 Active 110033436 Problem Diffuse cystic mastopathy of right breast N60.11 Active 83933096 Problem Hemiplegia and hemiparesis f ollowing unspecified cerebrovascular disease affecting right dominant side I69.951 Active 990058754 Problem Rheumatoid arthritis with rh eumatoid factor of right hip without organ or systems involvement M05.751 Active 71205 5006 Problem High risk medications (not anticoagulants) long-term use Z79.899 Active 297767665 Problem Irritable bowel syndrome with constipation K58.1 Active 181190103 Problem Other bipolar disorder F31.89 Active 62232827 Problem Migraine with aura and without status migrainosu s, not intractable G43.109 Active 6121453 Problem Arthritis M19.90 Active 9757025 Problem Anxiety disorder, unspecified F41.9 Active 198359452 Problem Panic disorder with agoraphobia F40.01 Active 77198831 Problem Irritable bowel syndrome with both constipation and diarrh ea K58.2 Active 58456597 Problem Fibromyalgia M79.7 Active 1609805 7 Problem Rheumatoid arthritis of left hip without organ or system involvement with positive rheumatoid factor M05.752 Active 144280524 Problem Type 2 diabetes mellitus wit h diabetic neuropathy, without long-term current use of insulin E11.40 Active 10133 006 Problem Chronic obstructive pulmonary disease, unspecified J44.9 Active 66241600 Problem 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 41.114 Active 772697360 Problem Daytime sleepiness R40.0 Active 1 [id number] ALLERGIES No Information ENCOUNTERS Encounter Location Date Diagnosis [facility] [address] [id number] [place] [address] September, [facility] [address] [id number] [place] [address] 16 Jul, 2019 [place] [address] [address] 05 Jul, 2019 [place] [address] [address] 28 Jun, 2019 Diabetes E11.9 [place] [address] [address] Jun, [place] [address] [address] Jun, [place] [address] [address] 12 Jun, 2019 Other chronic pain G89.29 and Hip pain, left M25.552 [place] [address] [address] 06 Jun, 2019 Migraine with aura and without status mi grainosus, not intractable G43.109 [place] [address] [address] 31 May, 2019 [place] [address] [address] May, [place] [address] [address] 14 May, 2019 Diabetes E11.9 [place] [address] [address] 14 May, 2019 Other chronic pain G89.29 and Hip pain, left M25.552 [place] [address] [address] 09 May, 2019 Schizoaffective disorder, bipolar type [...] Soft tissue lesion of elbow region M79.89 [place] [address] [address] 09 May, 2019 Bipolar 1 disorder, depressed, moderate F31.32 ; Panic disorder with agoraphobia F40.01 ; Chronic post-traumatic stress disorder (PTSD) F43.12 ; High risk medications (not anticoagulants) long-term use Z79.899 and Diabetes E11.9 [place] [address] [address] Apr, Diabetes E11.9 ; Other chronic pain G89. 29 and Hip pain, left M25.552 [place] [address] [address] 16 Apr, 2019 Bloating R14.0 [place] [address] [address] Apr, Bloating R14.0 ; Slow transit constipati on K59.01 and Generalized abdominal mass R19.07 [place] [address] [address] Apr, [place] [address] [address] Apr, [place] [address] [address] Apr, Bloating R14.0 ; Slow transit constipati on K59.01 and Generalized abdominal mass R19.07 [place] [address] [address] Mar, Diabetes E11.9 and Other chronic pain G8 9.29 [place] [address] [address] Mar, [place] [address] [address] Mar, Edema, lower extremity R60.0 and Diabete s E11.9 [place] [address] [address] Mar, [place] [address] [address] Feb, Diabetes E11.9 and Other chronic pain G8 9.29 [place] [address] [address] 16 Feb, 2019 [place] [address] [address] 14 Feb, 2019 [place] [address] [address] Feb, [place] [address] [address] Feb, Bronchitis J40 and Encounter for immuniz ation Z23 [address] [address] Jan, Diabetes E11.9 and Other chronic pain G8 9.[address] [address] Jan, Hypertension I10 [address] [address] 16 Jan, 2019 Daytime somnolence R40.[address] [address] Jan, Open wound of left elbow, initial encoun ter S51.002A and 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41.[address] [address] Jan, Diabetes E11.9 and Other chronic pain G8 9.29 [place] [address] [address] Jan, [address] [address] Jan, Daytime sleepiness R40.0 [place] [address] [address] Jan, [address] [address] Jan, [place] [address] [address] Jan, [place] [address] [address] Dec, Diabetes E11.9 and Other chronic pain G8 9.29 [place] [address] [address] Dec, [place] [address] [address] Dec, [place] [address] [address] Dec, Abdominal spasms R10.9 ; Rheumatoid arth ritis with rheumatoid factor of right hip without organ or systems involvement M05.751 ; Rheumatoid arthritis of left hip without organ or system involvement with positive rheumatoid factor M05.752 and Type 2 diabetes mellitus with diabetic neuropathy, without long-term current use of insulin E11.40 [place] [address] [address] Dec, Diabetes E11.9 and Other chronic pain G8 9.29 [place] [address] [address] Nov, [place] [address] [address] Nov, Hip pain, left M25.552 [place] [address] [address] Nov, [place] [address] [address] Nov, [place] [address] [address] Nov, Hemiplegia and hemiparesis following uns pecified cerebrovascular disease affecting right dominant side I69.951 ; Diabetes E11.9 ; Daytime somnolence R40.0 and Other chronic pain G89.29 [place] [address] [address] Nov, [facility] [address] [address] Nov, [facility] [address] [address] Nov, Hemiplegia and hemiparesis following uns pecified cerebrovascular disease affecting right dominant side I69.951 ; Lower leg edema R60.0 and Plantar fasciitis, bilateral M72.2 [facility] [address] [address] Oct, [facility] [address] [address] Oct, Daytime somnolence R40.0 ; Diabetes E11. 9 and Other chronic pain G89.29 [facility] [address] [address] Oct, Edema, lower extremity R60.0 and Hip higinio n, left M25.552 [facility] [address] [address] Oct, [facility] [address] [address] September, [facility] [address] [address] September, Diabetes E11.9 and Other chronic pain G8 9.29 [facility] [address] [address] September, Diabetes E11.9 and Other chronic pain G8 9.29 [facility] [address] [address] September, [facility] [address] [address] Aug, [facility] [address] [address] Aug, Hypertension I10 [facility] [address] [address] Aug, [place] [address] [address] Aug, [place] [address] [address] Aug, Diabetes E11.9 and Edema of both legs R6 0.0 [place] [address] [address] Aug, Panic disorder with agoraphobia F40.01 ; Other chronic pain G89.29 and Daytime somnolence R40.0 [place] [address] [address] Jul, [place] [address] [address] Jul, [place] [address] [address] Jul, Diffuse cystic mastopathy of left breast N60.12 and Diffuse cystic mastopathy of right breast N60.11 [place] [address] [address] Jul, Fibrocystic disease of right breast N60. 11 [place] [address] [address] 18 Jul, 2018 Fibrocystic disease of right breast N60. 11 and Fibrocystic disease of left breast N60.12 [place] [address] [address] 15 Jul, 2018 Encounter for Medicare annual wellness e xam Z00.00 ; Schizoaffective disorder, bipolar type F25.0 ; Chronic obstructive pulmonary disease, unspecified J44.9 ; Fibromyalgia M79.7 and Acute non-recurrent maxillary sinusitis J01.00 [place] [address] [address] 14 Jul, 2018 Daytime somnolence R40.0 [place] [address] [address] 14 Jul, 2018 [place] [address] [address] Jul, [place] [address] [address] Jul, Panic disorder with agoraphobia F40.01 ; Anxiety disorder, unspecified F41.9 ; Other chronic pain G89.29 and Daytime somnolence R40.0 [place] [address] [address] Jul, [place] [address] [address] Jun, [place] [address] [address] 08 Jun, 2018 Hip pain, left M25.552 ; Leg pain, left M79.605 ; Lumbar pain M54.5 and Mood disorder F39 [place] [address] [address] 08 Jun, 2018 Diabetes E11.9 ; Other chronic pain G89. 29 and Anxiety disorder, unspecified F41.9 [place] [address] [address] 07 Jun, 2018 Hip pain, left M25.552 ; Leg pain, left M79.605 ; Lumbar pain M54.5 and Mood disorder F39 [place] [address] [address] May, Diabetes E11.9 [place] [address] [address] May, [place] [address] [address] May, Other chronic pain G89.29 and Anxiety di sorder, unspecified F41.9 [place] [address] [address] May, [place] [address] [address] May, [place] [address] [place] [address] May, Tinnitus of right ear H93.11 [place] [address] [place] [address] May, Diabetes E11.9 ; Tinnitus of both ears H 93.13 ; Contracture, left hand M24.542 and Family history of rheumatic joint disease Z82.69 [place] [address] [place] [address] Apr, [place] [address] [place] [address] Apr, [place] [address] [address] Apr, Tinnitus of right ear H93.11 and Hyperte nsion I10 [place] [address] [address] Apr, Other chronic pain G89.29 ; Daytime somn olence R40.0 and Anxiety disorder, unspecified F41.9 [place] [address] [address] Apr, [place] [address] [address] Apr, [place] [address] [address] Mar, Tinnitus of right ear H93.11 [place] [address] [address] Mar, [place] [address] [address] Mar, Anxiety disorder, unspecified F41.9 ; Ot her chronic pain G89.29 and Daytime somnolence R40.0 [place] [address] [address] Mar, Irritable bowel syndrome with both const ipation and diarrhea K58.2 [facility] [address] [address] Mar, [facility] [address] [address] Mar, Hypertension I10 [place] [address] [address] Mar, [facility] [address] [address] Mar, [place] [address] [address] Mar, [place] [address] [address] Mar, Diabetes E11.9 [place] [address] [address] Mar, [place] [address] [address] Feb, Daytime somnolence R40.0 and Anxiety dis order, unspecified F41.9 [place] [address] [address] Feb, [place] [address] [address] Feb, [place] [address] [address] Feb, Tremors of nervous system R25.1 and Acut e swimmer''s ear of right side H60.331 [place] [address] [address] Feb, Cerebrovascular accident (CVA) due to oc clusion of right cerebellar artery I63.541 and Hypertension I10 [place] [address] [address] Feb, [facility] [address] [address] Feb, Cerebrovascular accident (CVA) due to oc clusion of right cerebellar artery I63.[address] [place] [address] [place] [id number] Feb, Hyponatremia E87.1 [facility] [address] [address] Feb, [facility] [address] [address] Feb, Daytime somnolence R40.0 [facility] [address] [address] Feb, [facility] [address] [address] 28 Jan, 2018 [facility] [address] [address] Jan, [facility] [address] [address] Jan, Chronic obstructive pulmonary disease, u nspecified J44.9 and Anxiety disorder, unspecified F41.9 [place] [address] [address] Jan, Hypertension I10 ; Fibromyalgia M79.7 an d Lumbago with sciatica, left side M54.42 [place] [address] [address] Jan, [facility] [address] [address] 20 Jan, 2018 Cerebrovascular accident (CVA) due to oc clusion of right cerebellar artery I63.541 [facility] [address] [address] 19 Jan, 2018 [facility] [address] [address] 13 Jan, 2018 Arthritis M19.90 [facility] [address] [address] Jan, [place] [address] [address] Jan, Abnormal mammogram of right breast R92.8 [place] [address] [address] Dec, Daytime somnolence R40.0 and Right otiti s media with effusion H65.91 [place] [address] [address] Dec, [place] [address] [address] Dec, Cerebrovascular accident (CVA) due to oc clusion of right cerebellar artery I63.541 [place] [address] [address] Dec, [place] [address] [address] Dec, [place] [address] [address] Nov, Bipolar 1 disorder, depressed, partial r emission F31.75 and Panic disorder with agoraphobia F40.01 [place] [address] [address] Nov, Panlobular emphysema J43.1 [place] [address] [address] Nov, Cerebrovascular accident (CVA) due to oc clusion of right cerebellar artery I63.541 and Acute non-recurrent maxillary sinusitis J01.00 [place] [address] [address] Nov, Panlobular emphysema J43.1 [place] [address] [address] Nov, [place] [address] [address] Nov, [place] [address] [address] Nov, [facility] [address] [address] Nov, [facility] [address] [address] Nov, [facility] [address] [address] Nov, [facility] [address] [address] Nov, [facility] [address] [address] Nov, Mild persistent asthma without complicat ion J45.30 and Irritable bowel syndrome with both constipation and diarrhea K58.2 [facility] [address] [address] Nov, [facility] [address] [address] Oct, [facility] [address] [address] Oct, [facility] [address] [address] Oct, Type 2 diabetes mellitus with diabetic n europathy, 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 ; Diabetes E11.9 ; Slow transit constipation K59.01 ; Edema of both legs R60.0 and Dysfunction of right eustachian tube H69.81 [facility] [address] [address] Oct, Frequent headaches R51 [facility] [address] [address] Oct, [facility] [address] [address] Oct, [facility] [address] [address] Oct, [facility] [address] [place] [id number] [place] [address] Oct, [facility] [address] [address] Oct, [facility] [address] [place] [id number] [place] [address] Oct, [facility] [address] [address] Oct, [facility] [address] [place] [id number] [place] [address] Oct, [facility] [address] [address] September, Frequent headaches R51 [facility] [address] [address] September, Bilateral otitis media with effusion H65 .93 ; Dizziness R42 and Essential tremor G25.0 [facility] [address] [place] [id number] [place] [address] September, Chronic obstructive pulmonary disease, u nspecified COPD type J44.9 [facility] [address] [address] September, Chronic obstructive pulmonary disease, u nspecified COPD type J44.9 [facility] [address] [address] September, Migraine without aura and without status migrainosus, not intractable G43.009 [facility] [address] [place] [id number] [place] [address] September, [facility] [address] [address] September, [facility] [address] [address] September, [facility] [address] [address] September, Frequent headaches R51 [facility] [address] [address] Aug, [place] [address] [address] Aug, Breast mass, right N63.10 [place] [address] [address] Aug, Breast lump N63.0 [place] [address] [address] Aug, [place] [address] [address] Aug, Bipolar affective disorder, remission st atus unspecified F31.9 and Diabetes E11.9 [place] [address] [address] Aug, Diabetes E11.9 ; Schizoaffective disorde r, bipolar type F25.0 ; Pharyngitis due to other organism J02.8 ; Panlobular emphysema J43.1 and Irritable bowel syndrome with both constipation and diarrhea K58.2 [place] [address] [address] Aug, Abnormal mammogram R92.8 [place] [address] [address] Aug, [place] [address] [address] Aug, Bipolar 1 disorder, depressed, moderate F31.32 ; Panic disorder with agoraphobia F40.01 and Chronic post-traumatic stress disorder (PTSD) F43.12 [place] [address] [address] Aug, [place] [address] [address] Aug, [place] [address] [address] Aug, [place] [address] [address] 26 Jul, 2017 [facility] [address] [address] Jul, Mild persistent asthma without complicat ion J45.30 [facility] [address] [address] 19 Jul, 2017 Mild persistent asthma without complicat ion J45.30 [facility] [address] [address] 15 Jul, 2017 Bipolar affective disorder, remission st atus unspecified F31.9 ; Diabetes E11.9 and Irritable bowel syndrome with constipation K58.1 [facility] [address] [address] 13 Jul, 2017 [facility] [address] [address] Jul, [facility] [address] [address] Jul, Frequent headaches R51 [facility] [address] [address] Jul, [facility] [address] [address] Jul, [facility] [address] [address] Jul, [facility] [address] [address] Jul, Frequent headaches R51 ; Fibrocystic dis ease of left breast N60.12 ; Fibrocystic disease of right breast N60.11 and Diabetes E11.9 [facility] [address] [address] Jul, [facility] [address] [address] Jul, [facility] [address] [address] Jun, Exudative tonsillitis J03.90 [facility] [address] [place] [id number] [place] [address] Jun, [facility] [address] [address] 19 Jun, 2017 [facility] [address] [address] 15 Jun, 2017 Mild persistent asthma without complicat ion J45.30 ; Chronic obstructive pulmonary disease, unspecified COPD type J44.9 and Exudative tonsillitis J03.90 [facility] [address] [address] 13 Jun, 2017 Encounter for immunization Z23 [facility] [address] [address] 12 Jun, 2017 [facility] [address] [address] Jun, [facility] [address] [address] 09 Jun, 2017 [facility] [address] [facility] [id number] [place] [address] 06 Jun, 2017 Tonsillitis J03.90 [facility] [address] [address] 05 Jun, 2017 [facility] [address] [address] Jun, Acute non-recurrent maxillary sinusitis J01.00 [facility] [address] [address] Jun, [facility] [address] [address] May, [facility] [address] [address] May, [facility] [address] [address] May, GERD (gastroesophageal reflux disease) K 21.[address] [place] [address] [address] May, Migraine without aura and without status migrainosus, not intractable G43.009 [facility] [address] [address] May, [place] [address] [address] May, [place] [address] [address] May, Panlobular emphysema J43.1 and Acute non -recurrent maxillary sinusitis J01.00 [place] [address] [address] [address] [address] May, Bipolar 1 disorder, depressed, moderate F31.32 ; Panic disorder with agoraphobia F40.01 and Akathisia G25.71 [place] [address] [address] Apr, [place] [address] [address] Apr, [place] [address] [address] Apr, Acute non-recurrent maxillary sinusitis J01.00 [place] [address] [address] Apr, Panlobular emphysema J43.1 [place] [address] [address] Apr, [facility] [address] [facility] [id number] [address] [place] [address] Apr, Exudative tonsillitis J03.90 and Sore throat J02.9 [place] [address] [address] Mar, [place] [address] [address] 15 Mar, 2017 Acute non-recurrent maxillary sinusitis J01.00 [place] [address] [address] Mar, [place] [address] [address] Mar, Panlobular emphysema J43.1 and Diabetes E11.9 [place] [address] [address] Mar, [facility] WALK IN [facility] [address] [facility] [id number] [address] [place] [address] Feb, Wheezing R06.2 and Acute rec urrent pansinusitis J01.41 [place] [address] [address] Feb, [place] [address] [address] Feb, Acute non-recurrent maxillary sinusitis J01.00 [place] [address] [address] Feb, Chronic obstructive pulmonary disease, u nspecified J44.9 [place] [address] [address] Feb, Hypoxemia R09.02 and Chronic obstructive pulmonary disease, unspecified J44.9 [place] [address] [address] 28 Jan, 2017 Bipolar 1 disorder, depressed, moderate F31.32 ; Panic disorder with agoraphobia F40.01 ; Chronic post-traumatic stress disorder (PTSD) F43.12 ; Diabetes E11.9 and Moderate persistent asthma without complication J45.40 [place] [address] [address] 22 Jan, 2017 [place] [address] [address] 19 Jan, 2017 Acute non-recurrent maxillary sinusitis J01.00 [place] [address] [address] Jan, [facility] [address] [address] Jan, [facility] [address] [address] Jan, Moderate persistent asthma without compl ication J45.40 and Hypoxemia R09.02 [place] [address] [address] Jan, Moderate persistent asthma without compl ication J45.40 and Hypoxemia R09.02 [place] [address] [address] Jan, [place] [address] [address] Dec, Acute non-recurrent maxillary sinusitis J01.00 [place] [address] [address] Dec, Chronic obstructive pulmonary disease, u nspecified J44.9 [place] [address] [address] Dec, [place] [address] [address] Dec, Mild persistent asthma without complicat ion J45.30 and Other chronic pain G89.29 [place] [address] [address] Nov, [place] [address] [address] Nov, Acute non-recurrent maxillary sinusitis J01.00 [place] [address] [address] Nov, [place] [address] [address] Nov, [place] [address] [address] Oct, [place] [address] [address] Oct, Bipolar 1 disorder, depressed, partial r emission F31.75 ; Panic disorder with agoraphobia F40.01 and Chronic post-traumatic stress disorder (PTSD) F43.12 [place] [address] [address] Oct, Acute non-recurrent maxillary sinusitis J01.00 [place] [address] [address] Oct, [place] [address] [address] Oct, Diabetes E11.9 [place] [address] [address] September, Diabetes E11.9 [place] [address] [address] September, Diabetes E11.9 and Sinus tachycardia R00 .0 [place] [address] [address] September, [place] [address] [address] September, [place] [address] [address] Aug, Diabetes E11.9 and Lumbago with sciatica , right side M54.41 [place] [address] [address] Aug, [place] [address] [address] Jul, Bipolar 1 disorder, depressed, moderate F31.32 ; Panic disorder with agoraphobia F40.01 and Chronic post-traumatic stress disorder (PTSD) F43.12 [place] [address] [address] Jul, Sore throat J02.9 [place] [address] [place] [id number] [place] [address] 16 Jul, 2016 [facility] [address] [place] [id number] [place] [address] Jul, [facility] [address] [place] [id number] [place] [address] Jul, [facility] [address] [place] [id number] [place] [address] Jul, [facility] [address] [place] [id number] [place] [address] Jul, Sore throat J02.9 and Pharyngitis, unspe cified etiology J02.9 [facility] [address] [place] [id number] [place] [address] Jun, [facility] [address] [address] Jun, Diabetes E11.9 [facility] [address] [place] [id number] [place] [address] Jun, [facility] [address] [place] [id number] [place] [address] Jun, [facility] [address] [place] [id number] [place] [address] Jun, [facility] [address] [place] [id number] [place] [address] Jun, [facility] [address] [place] [id number] [place] [address] Jun, [facility] [address] [place] [id number] [place] [address] 15 Jun, 2016 [facility] [address] [place] [id number] [place] [address] Jun, [facility] [address] [place] [id number] [place] [address] Jun, [facility] [address] [id number] [place] [address] May, Diabetes E11.9 ; Other chronic pain G89. 29 ; Acute recurrent maxillary sinusitis J01.01 ; Bipolar I disorder with depression F31.9 and Anxiety disorder, unspecified F41.9 [place] [address] [address] May, [place] [address] [address] May, Diabetes E11.9 ; Bipolar I disorder with depression F31.9 ; Anxiety disorder, unspecified F41.9 ; Other chronic pain G89.29 and Acute recurrent maxillary sinusitis J01.01 [place] [address] [address] May, [address] [address] May, Attention deficit hyperactivity disorder (ADHD), predominantly inattentive type F90.[address] [address] May, [address] [address] Apr, Attention deficit hyperactivity disorder (ADHD), predominantly inattentive type F90.0 and Non-seasonal allergic rhinitis due to other allergic trigger J30.[address] [address] Apr, Bipolar 1 disorder, depressed, moderate F31.32 ; Panic disorder with agoraphobia F40.01 and Chronic post-traumatic stress disorder (PTSD) F43.[address] [address] Apr, Dental examination Z01.[address] [address] Mar, [place] [address] [address] Mar, [address] [address] Mar, Bipolar I disorder with depression F31.9 and Anxiety disorder, unspecified F41.9 [place] [address] [place] [address] 08 Mar, 2016 Panic disorder with agoraphobia F40.01 ; Bipolar 1 disorder, depressed, moderate F31.32 and Chronic post-traumatic stress disorder (PTSD) F43.12 [place] [address] [address] Mar, [place] [address] [address] Mar, Dental caries K02.9 [place] [address] [place] [address] 24 Feb, 2016 Lumbago with sciatica, left side M54.42 ; Lumbago with sciatica, right side M54.41 and Other chronic pain G89.29 [place] [address] [address] Feb, [place] [address] [address] Feb, [place] [address] [address] Feb, Bipolar I disorder with depression F31.9 ; PTSD (post-traumatic stress disorder) F43.10 and Mood disorder F39 [place] [address] [address] Feb, [place] [address] [address] 11 Feb, 2016 Dental examination Z01.20 [place] [address] [address] 07 Feb, 2016 [facility] [address] [facility] [id number] [address] [place] [address] 03 Feb, 2016 Acute bronchitis, unspecifie d organism J20.9 [place] [address] [address] Jan, Mood disorder F39 ; Migraine without aur a and without status migrainosus, not intractable G43.009 ; Irritable bowel syndrome, unspecified type K58.9 ; Diabetes E11.9 and Encounter for immunization Z23 [place] [address] [address] Jan, [place] [address] [address] Jan, [place] [address] [address] Jan, [place] [address] [address] Jan, [place] [address] [address] Jan, [place] [address] [address] Dec, Bipolar I disorder with depression F31.9 ; PTSD (post-traumatic stress disorder) F43.10 and Panic disorder with agoraphobia F40.01 [place] [address] [address] Dec, Chronic obstructive pulmonary disease, u nspecified COPD type J44.9 ; Tremor R25.1 and Anxiety F41.9 [place] [address] [address] Dec, [place] [address] [address] Nov, Tremors of nervous system R25.1 and Cram ping of feet R25.2 [place] [address] [address] Nov, [place] [address] [address] Nov, [place] [address] [address] Oct, Chronic obstructive pulmonary disease, u nspecified J44.9 [place] [address] [address] Oct, [place] [address] [address] Oct, Tremor R25.1 [place] [address] [address] Oct, Bipolar I disorder with depression F31.9 ; Diabetes E11.9 ; PTSD (post-traumatic stress disorder) F43.10 and Panic disorder with agoraphobia F40.01 [place] [address] [address] Oct, Mood disorder F39 [place] [address] [address] September, [place] [address] [address] September, Diabetes E11.9 ; Bipolar I disorder with depression F31.9 ; PTSD (post-traumatic stress disorder) F43.10 and Panic disorder with agoraphobia F40.01 [place] [address] [address] September, Mood disorder F39 ; Schizoaffective diso rder, unspecified type F25.9 ; Arthritis M19.90 ; Tremor R25.1 ; Acute non-recurrent frontal sinusitis J01.10 and Blood in stool K92.1 [place] [address] [address] September, [place] [address] [address] September, Chronic obstructive pulmonary disease, u nspecified J44.9 [place] [address] [address] September, Diabetes E11.9 [place] [address] [address] Aug, Other bipolar disorder F31.89 and Anxiet y disorder, unspecified F41.9 [place] [address] [address] Aug, [facility] [address] [address] Aug, Diabetes E11.9 [facility] [address] [address] Aug, [facility] [address] [address] 14 Aug, 2015 Diabetes E11.9 ; Fatigue R53.83 and Dizz iness R42 [place] [address] [address] Aug, Other bipolar disorder F31.89 [place] [address] [address] Aug, Generalized anxiety disorder F41.1 [place] [address] [address] Aug, Other bipolar disorder F31.89 and Anxiet y disorder, unspecified F41.9 [place] [address] [address] Aug, [place] [address] [address] Jul, [place] [address] [address] Jul, [facility] [address] [address] Jul, Bronchitis J40 [facility] [address] [address] Jul, Anxiety disorder F41.9 [facility] [address] [address] Jul, Other bipolar disorder F31.89 and Anxiet y disorder, unspecified F41.9 [place] [address] [address] 18 Jul, 2015 Other bipolar disorder F31.89 and Fibrom yalgia M79.7 [place] [address] [address] 10 Jul, 2015 [place] [address] [address] Jul, [place] [address] [address] 08 Jul, 2015 [place] [address] [address] Jul, Other bipolar disorder F31.89 and Anxiet y disorder, unspecified F41.9 [place] [address] [address] Jun, GERD (gastroesophageal reflux disease) K 21.9 [place] [address] [address] Jun, [place] [address] [address] May, [place] [address] [address] May, Diabetes E11.9 ; Back pain M54.9 ; GERD (gastroesophageal reflux disease) K21.9 ; Hypertension I10 and Peripheral neuropathy G62.9 [place] [address] [address] Mar, [place] [address] [address] Mar, [address] [address] Mar, Acute sinusitis J01.90 and Otitis media, left H66.92 [place] [address] [address] Feb, [place] [address] [address] Feb, [facility] [address] [address] Feb, [facility] [address] [address] Feb, [facility] [address] [address] Jan, [facility] [address] [address] Jan, Diabetes 250.00 and Back pain 724.5 [facility] [address] [address] Jan, [facility] [address] [address] Dec, Diabetes 250.00 ; Benign essential hyper tension 401.1 and Allergic rhinitis 477.9 [facility] [address] [address] Dec, [facility] [address] [address] Dec, [facility] [address] [address] Dec, Psychosis 298.9 [facility] [address] [address] Dec, Medication side effect 995.20 and Genera lized anxiety disorder 300.02 [facility] [address] [address] Dec, Acquired cognitive dysfunction 294.9 [facility] [address] [address] Dec, [facility] [address] [address] Dec, Unspecified myalgia and myositis 729.1 a nd Generalized anxiety disorder 300.02 [facility] [address] [address] Nov, [facility] [address] [place] [id number] [place] [address] Nov, [facility] [address] [place] [id number] [place] [address] Nov, [facility] [address] [place] [id number] [place] [address] Nov, Upper respiratory infection 465.9 and Ch ronic airway obstruction, not elsewhere classified 496 [facility] [address] [place] [id number] [place] [address] Nov, Hyponatremia 276.1 [facility] [address] [place] [id number] [place] [address] Oct, [facility] [address] [place] [id number] [place] [address] Oct, [facility] [address] [place] [id number] [place] [address] Oct, [facility] [address] [place] [id number] [place] [address] Oct, [facility] [address] [place] [id number] [place] [address] Oct, Hyponatremia 276.1 [facility] [address] [id number] [place] [address] Oct, [facility] [address] [id number] [place] [address] Oct, [facility] [address] [place] [id number] [place] [address] Oct, Generalized anxiety disorder 300.02 [facility] [address] [address] [id number] [place] [address] Oct, Generalized anxiety disorder 300.02 and Diabetes 250.00 [facility] [address] [place] [id number] [place] [address] 14 Aug, 2014 [facility] [address] [id number] [place] [address] Aug, [facility] [address] [id number] [place] [address] Jul, [facility] [address] [id number] [place] [address] Jul, [facility] [address] [id number] [place] [address] Jun, [facility] [address] [id number] [place] [address] Jun, [facility] [address] [id number] [place] [address] Jun, [facility] [address] [id number] [place] [address] Jun, [facility] [address] [id number] [place] [address] Jun, [facility] [address] [id number] [place] [address] May, [facility] [address] [id number] [place] [address] May, [facility] [address] [id number] [place] [address] Apr, [facility] [address] [id number] [place] [address] Apr, [facility] [address] [id number] [place] [address] Apr, [facility] [address] [id number] [place] [address] Apr, [facility] [address] [id number] [place] [address] Apr, [facility] [address] [id number] [place] [address] Apr, [facility] [address] [id number] [place] [address] Apr, [facility] [address] [id number] [place] [address] Apr, [facility] [address] [id number] [place] [address] Feb, [facility] [address] [id number] [place] [address] Feb, [facility] [address] [id number] [place] [address] Jan, [facility] [address] [id number] [place] [address] Jan, [facility] [address] [id number] [place] [address] Dec, [facility] [address] [id number] [place] [address] Dec, [facility] [address] [id number] [place] [address] Dec, [facility] [address] [id number] [place] [address] Nov, [facility] [address] [id number] [place] [address] Nov, [facility] [address] [id number] [place] [address] Nov, [facility] [address] [id number] [place] [address] Oct, [facility] [address] [id number] [place] [address] Oct, [facility] [address] [id number] [place] [address] Oct, [facility] [address] [id number] [place] [address] September, [facility] [address] [id number] [place] [address] September, [facility] [address] [id number] [place] [address] September, [facility] [address] [id number] [place] [address] Aug, [facility] [address] [id number] [place] [address] Aug, [facility] [address] [id number] [place] [address] Aug, [facility] [address] [id number] [place] [address] 16 Aug, 2011 [facility] [address] [id number] [place] [address] Jul, [facility] [address] [id number] [place] [address] Jun, [facility] [address] [id number] [place] [address] 14 Jun, 2011 [facility] [address] [id number] [place] [address] 13 Jun, 2011 [facility] [address] [id number] [place] [address] 07 Jun, 2011 [facility] [address] [id number] [place] [address] 03 Jun, 2011 [facility] [address] [id number] [place] [address] 13 May, 2011 [facility] [address] [id number] [place] [address] May[facility] [address] [id number] [place] [id number] May, [facility] [address] [id number] [place] [id number] May, [facility] [address] [id number] [place] [id number] Apr, [facility] [address] [id number] [place] [address] Apr, [facility] [address] [id number] [place] [address] 05 Apr, 2011 [facility] [address] [id number] [place] [id number] Mar[facility] [address] [id number] [place] [id number] Mar, [facility] [address] [id number] [place] [id number] Mar, [facility] [address] [id number] [place] [id number] Feb, [facility] [address] [id number] [place] [address] Feb, [facility] [address] [id number] [place] [id number] Feb, [facility] [address] [id number] [place] [id number] Nov, [facility] [address] [id number] [place] [id number] September[facility] [address] [id number] [place] [id number] Aug[facility] [address] [id number] [place] [id number] Jul, [facility] [address] [id number] [place] [address] May, [facility] [id number] [place] [address] Apr, [facility] [address] [id number] [place] [id number] Apr, [facility] [id number] [place] [id number] Apr, [facility] [address] [id number] [place] [id number] Apr, [facility] [address] [id number] [place] [address] Apr, IMMUNIZATIONS No Known Immunizations SOCIAL HISTORY [...]
--- OUTSIDE RECORDS SUMMARY | 2019-07-17 10:37 | XMS REPORT ---
Author Author Sujey MEDINA Organization [facility] Address [address] [place] [address] Care Team Providers Care Customer Engagement Manager Name Role Phone JAKI MEDINA Unavailable PROBLEMS Type Condition ICD9-CM Code [id number] Code Onset Dates Condition S tatus SNOMED Code Problem Mild persistent asthma without complication J45.30 Active 561934140 Problem Panlobular emphysema J43.1 Active 3353345 Problem Moderate persistent asthma without complication J4 5.40 Active 820807267 Problem Migraine without aura and without status migrain osus, not intractable G43.009 Active 966550336 Problem Diabetes E11.9 Active 69124080 Problem Akathisia G25.71 Active 323012793 Problem GERD (gastroesophageal reflux disease) K21.9 Active 124239810 Problem Fibrocystic disease of right breast N60.11 Active 83112392 Problem Back pain M54.9 Active 208429459 Problem Fibrocystic disease of left breast N60.12 Active 63671636 Problem Hypertension I10 Active 7878202 3 Problem Diffuse cystic mastopathy of left breast N60.12 Active 07523651 Problem Bipolar I disorder with depression F31.9 Active 66279196 Problem Mood disorder F39 Active 784528 05 Problem Attention deficit hyperactiv ity disorder (ADHD), predominantly inattentive type F90.0 Active 37566766 Problem Acute non-recurrent maxillary sinusitis J01.00 Active 71445293 Problem Bipolar 1 disorder, depressed, partial remission F 31.75 Active 70552914 Problem Essential tremor G25.0 Active 609 549661 Problem Schizoaffective disorder, bipolar type F25.0 Active 68490573 Problem Daytime somnolence R40.0 Active 1 34792208693 Problem Lumbago with sciatica, right side M54.41 Active 882173969 Problem Slow transit constipation K59.01 Acti ve 79859592 Problem Lumbago with sciatica, left side M54.42 Active 460360983 Problem Tinnitus of right ear H93.11 Active 10039986 Problem Bipolar 1 disorder, depressed, moderate F31.32 Active 93856966 Problem Abnormal mammogram of right breast R92.8 Active 279226747 Problem Other chronic pain G89.29 Active 8 6767044 Problem Contracture, left hand M24.542 Active 465076694415608 Problem Bipolar affective disorder, remission status unspecified F31.9 Active 69409565 Problem Tinnitus of both ears H93.13 Active 3177970699464 Problem Chronic post-traumatic stress disorder (PTSD) F43. 12 Active 211174577 Problem Diffuse cystic mastopathy of right breast N60.11 Active 91472496 Problem Hemiplegia and hemiparesis f ollowing unspecified cerebrovascular disease affecting right dominant side I69.951 Active 037527351 Problem Rheumatoid arthritis with rh eumatoid factor of right hip without organ or systems involvement M05.751 Active 21695 5006 Problem High risk medications (not anticoagulants) long-term use Z79.899 Active 365972644 Problem Irritable bowel syndrome with constipation K58.1 Active 207692478 Problem Other bipolar disorder F31.89 Active 21118454 Problem Migraine with aura and without status migrainosu s, not intractable G43.109 Active 1220830 Problem Arthritis M19.90 Active 0043926 Problem Anxiety disorder, unspecified F41.9 Active 214119403 Problem Panic disorder with agoraphobia F40.01 Active 03837985 Problem Irritable bowel syndrome with both constipation and diarrh ea K58.2 Active 18788467 Problem Fibromyalgia M79.7 Active 5973467 7 Problem Rheumatoid arthritis of left hip without organ or system involvement with positive rheumatoid factor M05.752 Active 821487950 Problem Type 2 diabetes mellitus wit h diabetic neuropathy, without long-term current use of insulin E11.40 Active 00144 006 Problem Chronic obstructive pulmonary disease, unspecified J44.9 Active 35439081 Problem 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 41.114 Active 587156045 Problem Daytime sleepiness R40.0 Active 1 [id number] ALLERGIES No Information ENCOUNTERS Encounter Location Date Diagnosis [facility] [address] [id number] [place] [address] September, [facility] [address] [id number] [place] [address] 16 Jul, 2019 [place] [address] [address] Jul, [place] [address] [address] Jun, [place] [address] [address] Jun, [place] [address] [address] Jun, Other chronic pain G89.29 and Hip pain, left M25.552 [place] [address] [address] 06 Jun, 2019 Migraine with aura and without status mi grainosus, not intractable G43.109 [place] [address] [address] May, [place] [address] [address] May, [place] [address] [address] 14 May, 2019 Diabetes E11.9 [place] [address] [address] 14 May, 2019 Other chronic pain G89.29 and Hip pain, left M25.552 [place] [address] [address] 09 May, 2019 Schizoaffective disorder, bipolar type [...] Soft tissue lesion of elbow region M79.89 [place] [address] [address] 09 May, 2019 Bipolar 1 disorder, depressed, moderate F31.32 ; Panic disorder with agoraphobia F40.01 ; Chronic post-traumatic stress disorder (PTSD) F43.12 ; High risk medications (not anticoagulants) long-term use Z79.899 and Diabetes E11.9 [place] [address] [address] 17 Apr, 2019 Diabetes E11.9 ; Other chronic pain G89. 29 and Hip pain, left M25.552 [place] [address] [address] 16 Apr, 2019 Bloating R14.0 [place] [address] [address] Apr, Bloating R14.0 ; Slow transit constipati on K59.01 and Generalized abdominal mass R19.07 [place] [address] [address] Apr, [place] [address] [address] Apr, [place] [address] [address] Apr, Bloating R14.0 ; Slow transit constipati on K59.01 and Generalized abdominal mass R19.07 [place] [address] [address] Mar, Diabetes E11.9 and Other chronic pain G8 9.29 [place] [address] [address] Mar, [place] [address] [address] Mar, Edema, lower extremity R60.0 and Diabete s E11.9 [place] [address] [address] Mar, [place] [address] [address] Feb, Diabetes E11.9 and Other chronic pain G8 9.29 [place] [address] [address] 16 Feb, 2019 [facility] [address] [address] Feb, [facility] [address] [address] Feb, [place] [address] [address] Feb, Bronchitis J40 and Encounter for immuniz ation Z23 [place] [address] [address] 26 Jan, 2019 Diabetes E11.9 and Other chronic pain G8 9.29 [place] [address] [address] 23 Jan, [address] [address] 16 Jan, 2019 Daytime somnolence R40.[address] [address] 12 Jan, 2019 Open wound of left elbow, initial encoun ter S51.002A and 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41.114 [place] [address] [address] 09 Jan, 2019 Diabetes E11.9 and Other chronic pain G8 9.29 [place] [address] [address] Jan, [place] [address] [address] Jan, 2018 Daytime sleepiness R40.0 [place] [address] [address] Jan, [facility] [address] [address] Jan, [place] [address] [address] Jan, [place] [address] [place] [id number] [place] [address] Dec, Diabetes E11.9 and Other chronic pain G8 9.29 [place] [address] [address] Dec, [facility] [address] [address] Dec, [place] [address] [address] Dec, Abdominal spasms R10.9 ; Rheumatoid arth ritis with rheumatoid factor of right hip without organ or systems involvement M05.751 ; Rheumatoid arthritis of left hip without organ or system involvement with positive rheumatoid factor M05.752 and Type 2 diabetes mellitus with diabetic neuropathy, without long-term current use of insulin E11.40 [place] [address] [address] Dec, Diabetes E11.9 and Other chronic pain G8 9.29 [place] [address] [address] Nov, [place] [address] [address] Nov, Hip pain, left M25.552 [place] [address] [address] Nov, [place] [address] [address] Nov, [place] [address] [address] Nov, Hemiplegia and hemiparesis following uns pecified cerebrovascular disease affecting right dominant side I69.951 ; Diabetes E11.9 ; Daytime somnolence R40.0 and Other chronic pain G89.29 [place] [address] [place] [id number] [place] [address] Nov, [place] [address] [address] Nov, [facility] [address] [address] Nov, Hemiplegia and hemiparesis following uns pecified cerebrovascular disease affecting right dominant side I69.951 ; Lower leg edema R60.0 and Plantar fasciitis, bilateral M72.2 [facility] [address] [address] Oct, [facility] [address] [address] Oct, Daytime somnolence R40.0 ; Diabetes E11. 9 and Other chronic pain G89.29 [facility] [address] [address] Oct, Edema, lower extremity R60.0 and Hip higinio n, left M25.552 [facility] [address] [address] Oct, [facility] [address] [address] September, [facility] [address] [address] September, Diabetes E11.9 and Other chronic pain G8 9.29 [facility] [address] [address] September, Diabetes E11.9 and Other chronic pain G8 9.29 [facility] [address] [address] September, [facility] [address] [address] Aug, [facility] [address] [address] Aug, Hypertension I10 [facility] [address] [address] Aug, [facility] [address] [address] Aug, [place] [address] [address] Aug, Diabetes E11.9 and Edema of both legs R6 0.0 [place] [address] [address] Aug, Panic disorder with agoraphobia F40.01 ; Other chronic pain G89.29 and Daytime somnolence R40.0 [place] [address] [address] Jul, [place] [address] [address] Jul, [place] [address] [address] Jul, Diffuse cystic mastopathy of left breast N60.12 and Diffuse cystic mastopathy of right breast N60.11 [place] [address] [address] Jul, Fibrocystic disease of right breast N60. 11 [place] [address] [address] 18 Jul, 2018 Fibrocystic disease of right breast N60. 11 and Fibrocystic disease of left breast N60.12 [place] [address] [address] 15 Jul, 2018 Encounter for Medicare annual wellness e xam Z00.00 ; Schizoaffective disorder, bipolar type F25.0 ; Chronic obstructive pulmonary disease, unspecified J44.9 ; Fibromyalgia M79.7 and Acute non-recurrent maxillary sinusitis J01.00 [place] [address] [address] 14 Jul, 2018 Daytime somnolence R40.0 [place] [address] [address] 14 Jul, 2018 [place] [address] [address] 13 Jul, 2018 [place] [address] [address] Jul, Panic disorder with agoraphobia F40.01 ; Anxiety disorder, unspecified F41.9 ; Other chronic pain G89.29 and Daytime somnolence R40.0 [place] [address] [address] Jul, [place] [address] [address] Jun, [place] [address] [address] 08 Jun, 2018 Hip pain, left M25.552 ; Leg pain, left M79.605 ; Lumbar pain M54.5 and Mood disorder F39 [place] [address] [address] 08 Jun, 2018 Diabetes E11.9 ; Other chronic pain G89. 29 and Anxiety disorder, unspecified F41.9 [place] [address] [address] 07 Jun, 2018 Hip pain, left M25.552 ; Leg pain, left M79.605 ; Lumbar pain M54.5 and Mood disorder F39 [place] [address] [address] May, Diabetes E11.9 [place] [address] [address] May, [place] [address] [address] May, Other chronic pain G89.29 and Anxiety di sorder, unspecified F41.9 [place] [address] [address] May, [place] [address] [address] May, [place] [address] [address] May, Tinnitus of right ear H93.11 [place] [address] [address] May, Diabetes E11.9 ; Tinnitus of both ears H 93.13 ; Contracture, left hand M24.542 and Family history of rheumatic joint disease Z82.69 [place] [address] [address] Apr, [place] [address] [place] [address] Apr, [place] [address] [address] Apr, Tinnitus of right ear H93.11 and Hyperte nsion I10 [place] [address] [address] Apr, Other chronic pain G89.29 ; Daytime somn olence R40.0 and Anxiety disorder, unspecified F41.9 [place] [address] [address] Apr, [place] [address] [address] Apr, [place] [address] [address] Mar, Tinnitus of right ear H93.11 [place] [address] [address] Mar, [place] [address] [address] Mar, Anxiety disorder, unspecified F41.9 ; Ot her chronic pain G89.29 and Daytime somnolence R40.0 [place] [address] [address] Mar, Irritable bowel syndrome with both const ipation and diarrhea K58.2 [place] [address] [address] Mar, [facility] [address] [address] Mar, Hypertension I10 [facility] [address] [address] Mar, [facility] [address] [address] Mar, [facility] [address] [address] Mar, [facility] [address] [address] Mar, Diabetes E11.9 [place] [address] [address] Mar, [place] [address] [address] Feb, Daytime somnolence R40.0 and Anxiety dis order, unspecified F41.9 [facility] [address] [address] Feb, [place] [address] [address] Feb, [facility] [address] [address] Feb, Tremors of nervous system R25.1 and Acut e swimmer''s ear of right side H60.331 [place] [address] [address] Feb, Cerebrovascular accident (CVA) due to oc clusion of right cerebellar artery I63.541 and Hypertension I10 [facility] [address] [address] Feb, [facility] [address] [address] Feb, Cerebrovascular accident (CVA) due to oc clusion of right cerebellar artery I63.541 [facility] [address] [facility] [id number] [place] [id number] Feb, Hyponatremia E87.1 [place] [address] [address] Feb, [place] [address] [address] Feb, Daytime somnolence R40.0 [place] [address] [address] Feb, [place] [address] [address] Jan, [place] [address] [address] Jan, [place] [address] [address] Jan, Chronic obstructive pulmonary disease, u nspecified J44.9 and Anxiety disorder, unspecified F41.9 [place] [address] [address] Jan, Hypertension I10 ; Fibromyalgia M79.7 an d Lumbago with sciatica, left side M54.42 [place] [address] [address] Jan, [place] [address] [address] 20 Jan, 2018 Cerebrovascular accident (CVA) due to oc clusion of right cerebellar artery I63.541 [place] [address] [address] 19 Jan, 2018 [place] [address] [address] 13 Jan, 2018 Arthritis M19.90 [place] [address] [address] 07 Jan, 2018 [place] [address] [address] 04 Jan, 2018 Abnormal mammogram of right breast R92.8 [place] [address] [address] Dec, Daytime somnolence R40.0 and Right otiti s media with effusion H65.91 [place] [address] [address] Dec, [place] [address] [address] Dec, Cerebrovascular accident (CVA) due to oc clusion of right cerebellar artery I63.541 [place] [address] [address] Dec, [place] [address] [address] Dec, [place] [address] [address] Nov, Bipolar 1 disorder, depressed, partial r emission F31.75 and Panic disorder with agoraphobia F40.01 [place] [address] [address] Nov, Panlobular emphysema J43.1 [place] [address] [address] Nov, Cerebrovascular accident (CVA) due to oc clusion of right cerebellar artery I63.541 and Acute non-recurrent maxillary sinusitis J01.00 [place] [address] [address] Nov, Panlobular emphysema J43.1 [place] [address] [address] Nov, [place] [address] [address] Nov, [place] [address] [address] Nov, [place] [address] [address] Nov, [facility] [address] [address] Nov, [facility] [address] [address] Nov, [facility] [address] [address] Nov, [facility] [address] [address] Nov, Mild persistent asthma without complicat ion J45.30 and Irritable bowel syndrome with both constipation and diarrhea K58.2 [facility] [address] [address] Nov, [facility] [address] [address] Oct, [facility] [address] [address] Oct, [facility] [address] [address] Oct, Type 2 diabetes mellitus with diabetic n europathy, 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 ; Diabetes E11.9 ; Slow transit constipation K59.01 ; Edema of both legs R60.0 and Dysfunction of right eustachian tube H69.81 [facility] [address] [address] Oct, Frequent headaches R51 [facility] [address] [address] Oct, [facility] [address] [address] Oct, [facility] [address] [address] Oct, [facility] [address] [address] Oct, [facility] [address] [address] Oct, [facility] [address] [address] Oct, [facility] [address] [address] Oct, [facility] [address] [address] Oct, [facility] [address] [address] September, Frequent headaches R51 [facility] [address] [address] September, Bilateral otitis media with effusion H65 .93 ; Dizziness R42 and Essential tremor G25.0 [facility] [address] [address] September, Chronic obstructive pulmonary disease, u nspecified COPD type J44.9 [facility] [address] [address] September, Chronic obstructive pulmonary disease, u nspecified COPD type J44.9 [facility] [address] [address] September, Migraine without aura and without status migrainosus, not intractable G43.009 [facility] [address] [address] September, [facility] [address] [address] September, [facility] [address] [address] September, [facility] [address] [address] September, Frequent headaches R51 [facility] [address] [address] Aug, [facility] [address] [address] Aug, Breast mass, right N63.10 [place] [address] [address] Aug, Breast lump N63.0 [place] [address] [address] Aug, [place] [address] [address] Aug, Bipolar affective disorder, remission st atus unspecified F31.9 and Diabetes E11.9 [place] [address] [address] Aug, Diabetes E11.9 ; Schizoaffective disorde r, bipolar type F25.0 ; Pharyngitis due to other organism J02.8 ; Panlobular emphysema J43.1 and Irritable bowel syndrome with both constipation and diarrhea K58.2 [place] [address] [address] Aug, Abnormal mammogram R92.8 [place] [address] [address] Aug, [place] [address] [address] Aug, Bipolar 1 disorder, depressed, moderate F31.32 ; Panic disorder with agoraphobia F40.01 and Chronic post-traumatic stress disorder (PTSD) F43.12 [place] [address] [address] Aug, [place] [address] [address] Aug, [place] [address] [address] Aug, [place] [address] [address] Jul, [place] [address] [address] 20 Jul, 2017 Mild persistent asthma without complicat ion J45.30 [place] [address] [address] 19 Jul, 2017 Mild persistent asthma without complicat ion J45.30 [place] [address] [address] 15 Jul, 2017 Bipolar affective disorder, remission st atus unspecified F31.9 ; Diabetes E11.9 and Irritable bowel syndrome with constipation K58.1 [place] [address] [address] 13 Jul, 2017 [place] [address] [address] 09 Jul, 2017 [place] [address] [address] 08 Jul, 2017 Frequent headaches R51 [place] [address] [address] 07 Jul, 2017 [place] [address] [address] 06 Jul, 2017 [place] [address] [address] Jul, [place] [address] [address] Jul, Frequent headaches R51 ; Fibrocystic dis ease of left breast N60.12 ; Fibrocystic disease of right breast N60.11 and Diabetes E11.9 [place] [address] [address] 02 Jul, 2017 [place] [address] [address] Jul, [place] [address] [address] Jun, Exudative tonsillitis J03.90 [place] [address] [address] Jun, [facility] [address] [address] 19 Jun, 2017 [facility] [address] [address] 15 Jun, 2017 Mild persistent asthma without complicat ion J45.30 ; Chronic obstructive pulmonary disease, unspecified COPD type J44.9 and Exudative tonsillitis J03.90 [place] [address] [address] 13 Jun, 2017 Encounter for immunization Z23 [place] [address] [address] 12 Jun, 2017 [place] [address] [address] 12 Jun, 2017 [place] [address] [address] 09 Jun, 2017 [facility] [address] [facility] [id number] [address] [address] 06 Jun, 2017 Tonsillitis J03.90 [place] [address] [address] 05 Jun, 2017 [place] [address] [address] 03 Jun, 2017 Acute non-recurrent maxillary sinusitis J01.00 [place] [address] [address] 02 Jun, 2017 [facility] [address] [address] May, [place] [address] [address] May, [place] [address] [address] May, GERD (gastroesophageal reflux disease) K 21.9 [place] [address] [address] May, Migraine without aura and without status migrainosus, not intractable G43.009 [facility] [address] [address] May, [facility] [address] [address] May, [facility] [address] [address] May, Panlobular emphysema J43.1 and Acute non -recurrent maxillary sinusitis J01.00 [place] [address] [address] May, Bipolar 1 disorder, depressed, moderate F31.32 ; Panic disorder with agoraphobia F40.01 and Akathisia G25.71 [place] [address] [address] Apr, [place] [address] [address] Apr, [facility] [address] [address] Apr, Acute non-recurrent maxillary sinusitis J01.00 [place] [address] [place] [id number] [place] [id number] Apr, Panlobular emphysema J43.1 [facility] [address] [place] [id number] [place] [address] Apr, [facility] [address] [facility] [id number] [address] [address] 04 Apr, 2017 Exudative tonsillitis J03.90 and Sore throat J02.9 [place] [id number] [place] [address] Mar, [facility] [address] [address] Mar, Acute non-recurrent maxillary sinusitis J01.00 [facility] [id number] [place] [address] Mar, [facility] [id number] [place] [address] Mar, Panlobular emphysema J43.1 and Diabetes E11.9 [facility] [address] [id number] [place] [address] 06 Mar, 2017 [facility] [address] [facility] [id number] [address] [place] [address] 24 Feb, 2017 Wheezing R06.2 and Acute rec urrent pansinusitis J01.41 [facility] [address] [address] Feb, [facility] [address] [address] Feb, Acute non-recurrent maxillary sinusitis J01.00 [facility] [address] [address] Feb, Chronic obstructive pulmonary disease, u nspecified J44.9 [facility] [id number] [place] [address] Feb, Hypoxemia R09.02 and Chronic obstructive pulmonary disease, unspecified J44.9 [facility] [place] [id number] [place] [address] 28 Jan, 2017 Bipolar 1 disorder, depressed, moderate F31.32 ; Panic disorder with agoraphobia F40.01 ; Chronic post-traumatic stress disorder (PTSD) F43.12 ; Diabetes E11.9 and Moderate persistent asthma without complication J45.40 [facility] [id number] [place] [address] Jan, [facility] [address] [address] 19 Jan, 2017 Acute non-recurrent maxillary sinusitis J01.00 [facility] [place] [id number] [place] [address] 18 Jan, 2017 [facility] [address] [address] 18 Jan, 2017 [facility] [address] [address] 12 Jan, 2017 Moderate persistent asthma without compl ication J45.40 and Hypoxemia R09.02 [facility] [address] [address] Jan, Moderate persistent asthma without compl ication J45.40 and Hypoxemia R09.02 [facility] [address] [address] Jan, [facility] [address] [address] Dec, Acute non-recurrent maxillary sinusitis J01.00 [facility] [address] [address] Dec, Chronic obstructive pulmonary disease, u nspecified J44.9 [facility] [address] [address] Dec, [facility] [address] [address] Dec, Mild persistent asthma without complicat ion J45.30 and Other chronic pain G89.29 [facility] [address] [address] Nov, [facility] [address] [address] Nov, Acute non-recurrent maxillary sinusitis J01.00 [facility] [address] [address] Nov, [facility] [address] [address] Nov, [facility] [address] [address] Oct, [facility] [address] [address] Oct, Bipolar 1 disorder, depressed, partial r emission F31.75 ; Panic disorder with agoraphobia F40.01 and Chronic post-traumatic stress disorder (PTSD) F43.12 [facility] [address] [address] Oct, Acute non-recurrent maxillary sinusitis J01.00 [facility] [address] [address] Oct, [facility] [address] [address] Oct, Diabetes E11.9 [facility] [address] [address] September, Diabetes E11.9 [facility] [address] [address] September, Diabetes E11.9 and Sinus tachycardia R00 .0 [facility] [address] [address] September, [facility] [address] [address] September, [facility] [address] [address] Aug, Diabetes E11.9 and Lumbago with sciatica , right side M54.[address] [address] Aug, [address] [address] Jul, Bipolar 1 disorder, depressed, moderate F31.32 ; Panic disorder with agoraphobia F40.01 and Chronic post-traumatic stress disorder (PTSD) F43.12 [facility] [address] [address] Jul, Sore throat J02.9 [facility] [address] [address] Jul, [place] [id number] [place] [address] Jul, [facility] [id number] [place] [address] Jul, [facility] [id number] [place] [address] Jul, [facility] [address] [address] Jul, Sore throat J02.9 and Pharyngitis, unspe cified etiology J02.9 [facility] [id number] [place] [address] Jun, [facility] [address] [address] Jun, Diabetes E11.9 [facility] [address] [address] Jun, [facility] [address] [address] Jun, [facility] [address] [address] Jun, [facility] [address] [address] Jun, [facility] [address] [address] Jun, [facility] [address] [address] 15 Jun, 2016 [facility] [address] [address] Jun, [facility] [address] [address] Jun, [facility] [address] [address] May, Diabetes E11.9 ; Other chronic pain G89. 29 ; Acute recurrent maxillary sinusitis J01.01 ; Bipolar I disorder with depression F31.9 and Anxiety disorder, unspecified F41.9 [facility] [address] [address] May, [facility] [address] [address] May, Diabetes E11.9 ; Bipolar I disorder with depression F31.9 ; Anxiety disorder, unspecified F41.9 ; Other chronic pain G89.29 and Acute recurrent maxillary sinusitis J01.01 [facility] [address] [address] May, [facility] [address] [address] May, Attention deficit hyperactivity disorder (ADHD), predominantly inattentive type F90.[address] [address] May, [address] [address] Apr, Attention deficit hyperactivity disorder (ADHD), predominantly inattentive type F90.0 and Non-seasonal allergic rhinitis due to other allergic trigger J30.[address] [address] Apr, Bipolar 1 disorder, depressed, moderate F31.32 ; Panic disorder with agoraphobia F40.01 and Chronic post-traumatic stress disorder (PTSD) F43.[address] [address] Apr, Dental examination Z01.20 [facility] [address] [address] Mar, [address] [address] Mar, [address] [address] Mar, Bipolar I disorder with depression F31.9 and Anxiety disorder, unspecified F41.9 [facility] [address] [address] 08 Mar, 2016 Panic disorder with agoraphobia F40.01 ; Bipolar 1 disorder, depressed, moderate F31.32 and Chronic post-traumatic stress disorder (PTSD) F43.12 [facility] [address] [address] 04 Mar, 2016 [facility] [place] [address] [address] Mar, Dental caries K02.9 [facility] [address] [address] 24 Feb, 2016 Lumbago with sciatica, left side M54.42 ; Lumbago with sciatica, right side M54.41 and Other chronic pain G89.29 [facility] [address] [address] 17 Feb, 2016 [facility] [address] [address] 14 Feb, 2016 [place] [address] [address] 13 Feb, 2016 Bipolar I disorder with depression F31.9 ; PTSD (post-traumatic stress disorder) F43.10 and Mood disorder F39 [facility] [address] [address] 13 Feb, 2016 [facility] [place] [address] [address] 11 Feb, 2016 Dental examination Z01.20 [facility] [address] [address] 07 Feb, 2016 [facility] [address] [facility] [id number] [address] [place] [address] 03 Feb, 2016 Acute bronchitis, unspecifie d organism J20.9 [facility] [address] [address] Jan, Mood disorder F39 ; Migraine without aur a and without status migrainosus, not intractable G43.009 ; Irritable bowel syndrome, unspecified type K58.9 ; Diabetes E11.9 and Encounter for immunization Z23 [facility] [address] [address] Jan, [facility] [address] [address] Jan, [facility] [place] [address] [address] Jan, [facility] [place] [address] [address] Jan, [facility] [place] [address] [address] Jan, [facility] [place] [address] [address] Dec, Bipolar I disorder with depression F31.9 ; PTSD (post-traumatic stress disorder) F43.10 and Panic disorder with agoraphobia F40.01 [facility] [address] [address] Dec, Chronic obstructive pulmonary disease, u nspecified COPD type J44.9 ; Tremor R25.1 and Anxiety F41.9 [facility] [address] [address] Dec, [facility] [place] [address] [address] Nov, Tremors of nervous system R25.1 and Cram ping of feet R25.2 [facility] [address] [address] Nov, [facility] [address] [address] Nov, [facility] [place] [address] [address] Oct, Chronic obstructive pulmonary disease, u nspecified J44.9 [facility] [place] [address] [address] Oct, [facility] [place] [address] [address] Oct, Tremor R25.1 [facility] [place] [address] [address] Oct, Bipolar I disorder with depression F31.9 ; Diabetes E11.9 ; PTSD (post-traumatic stress disorder) F43.10 and Panic disorder with agoraphobia F40.01 [facility] [place] [address] [address] Oct, Mood disorder F39 [facility] [place] [address] [address] September, [facility] [place] [address] [address] September, Diabetes E11.9 ; Bipolar I disorder with depression F31.9 ; PTSD (post-traumatic stress disorder) F43.10 and Panic disorder with agoraphobia F40.01 [place] [place] [address] [address] September, Mood disorder F39 ; Schizoaffective diso rder, unspecified type F25.9 ; Arthritis M19.90 ; Tremor R25.1 ; Acute non-recurrent frontal sinusitis J01.10 and Blood in stool K92.1 [facility] [address] [address] September, [place] [place] [address] [address] September, Chronic obstructive pulmonary disease, u nspecified J44.9 [facility] [place] [address] [address] September, Diabetes E11.9 [facility] [place] [address] [address] Aug, Other bipolar disorder F31.89 and Anxiet y disorder, unspecified F41.9 [facility] [address] [address] Aug, [facility] [address] [address] Aug, Diabetes E11.9 [facility] [address] [address] 18 Aug, 2015 [facility] [address] [address] 14 Aug, 2015 Diabetes E11.9 ; Fatigue R53.83 and Dizz iness R42 [facility] [address] [address] Aug, Other bipolar disorder F31.89 [facility] [place] [address] [address] Aug, Generalized anxiety disorder F41.1 [facility] [place] [address] [address] Aug, Other bipolar disorder F31.89 and Anxiet y disorder, unspecified F41.9 [facility] [place] [address] [address] Aug, [facility] [place] [address] [address] Jul, [place] [address] [address] 24 Jul, 2015 [facility] [address] [address] Jul, Bronchitis J40 [facility] [address] [address] Jul, Anxiety disorder F41.9 [facility] [address] [address] Jul, Other bipolar disorder F31.89 and Anxiet y disorder, unspecified F41.9 [facility] [address] [address] Jul, Other bipolar disorder F31.89 and Fibrom yalgia M79.7 [facility] [place] [address] [address] Jul, [place] [address] [address] Jul, [place] [address] [address] Jul, [facility] [place] [address] [address] Jul, Other bipolar disorder F31.89 and Anxiet y disorder, unspecified F41.9 [facility] [place] [address] [address] Jun, GERD (gastroesophageal reflux disease) K 21.9 [place] [address] [address] Jun, [facility] [address] [address] May, [facility] [address] [address] May, Diabetes E11.9 ; Back pain M54.9 ; GERD (gastroesophageal reflux disease) K21.9 ; Hypertension I10 and Peripheral neuropathy G62.9 [place] [place] [address] [address] Mar, [place] [address] [address] Mar, [facility] [address] [address] Mar, Acute sinusitis J01.90 and Otitis media, left H66.92 [facility] [place] [address] [address] Feb, [place] [address] [address] Feb, [place] [address] [address] Feb, [facility] [address] [address] Feb, [facility] [address] [address] Jan, [facility] [address] [address] Jan, Diabetes 250.00 and Back pain 724.5 [facility] [address] [address] Jan, [facility] [address] [address] Dec, Diabetes 250.00 ; Benign essential hyper tension 401.1 and Allergic rhinitis 477.9 [facility] [address] [address] Dec, [facility] [address] [address] Dec, [facility] [address] [address] Dec, Psychosis 298.9 [facility] [address] [address] Dec, Medication side effect 995.20 and Genera lized anxiety disorder 300.02 [facility] [address] [address] Dec, Acquired cognitive dysfunction 294.9 [facility] [address] [address] Dec, [facility] [address] [address] Dec, Unspecified myalgia and myositis 729.1 a nd Generalized anxiety disorder 300.02 [facility] [address] [address] Nov, [facility] [address] [address] Nov, [facility] [id number] [place] [address] Nov, [facility] [id number] [place] [address] Nov, Upper respiratory infection 465.9 and Ch ronic airway obstruction, not elsewhere classified 496 [facility] [id number] [place] [address] Nov, Hyponatremia 276.1 [facility] [id number] [place] [address] Oct, [facility] [id number] [place] [address] Oct, [facility] [id number] [place] [address] Oct, [facility] [id number] [place] [address] Oct, [facility] [id number] [place] [address] Oct, Hyponatremia 276.1 [facility] [id number] [place] [address] Oct, [facility] [id number] [place] [address] Oct, [facility] [id number] [place] [address] Oct, Generalized anxiety disorder 300.02 [facility] [id number] [place] [address] Oct, Generalized anxiety disorder 300.02 and Diabetes 250.00 [facility] [id number] [place] [address] Aug, [facility] [id number] [place] [address] Aug, [facility] [id number] [place] [address] Jul, [facility] [address] [id number] [place] [address] Jul, [facility] [address] [id number] [place] [address] Jun, [facility] [address] [id number] [place] [address] Jun, [facility] [address] [id number] [place] [address] Jun, [facility] [address] [id number] [place] [address] Jun, [facility] [address] [id number] [place] [address] Jun, [facility] [address] [id number] [place] [address] May, [facility] [address] [id number] [place] [address] May, [facility] [address] [id number] [place] [address] Apr, [facility] [address] [id number] [place] [address] Apr, [facility] [address] [id number] [place] [address] Apr, [facility] [address] [id number] [place] [address] Apr, [facility] [address] [id number] [place] [address] Apr, [facility] [address] [id number] [place] [address] Apr, [facility] [address] [id number] [place] [address] Apr, [facility] [address] [id number] [place] [address] Apr, [facility] [address] [id number] [facility] [place] [address] Feb, [facility] [address] [facility] [id number] [facility] [place] [address] Feb, [facility] [address] [id number] [place] [address] Jan, [facility] [address] [id number] [place] [address] Jan, [facility] [address] [id number] [place] [address] Dec, [facility] [address] [id number] [place] [address] Dec, [facility] [address] [id number] [place] [address] Dec, [facility] [address] [id number] [place] [address] Nov, [facility] [address] [id number] [place] [address] Nov, [facility] [address] [id number] [place] [address] Nov, [facility] [address] [id number] [place] [address] Oct, [facility] [address] [id number] [place] [address] Oct, [facility] [address] [id number] [place] [address] Oct, [facility] [address] [id number] [place] [address] September, [facility] [address] [id number] [place] [address] September, [facility] [address] [id number] [place] [address] September, [facility] [address] [id number] [place] [address] Aug, [facility] [address] [id number] [place] [address] 20 Aug, 2011 [facility] [address] [id number] [place] [address] 19 Aug, 2011 [facility] [address] [id number] [place] [address] 16 Aug, 2011 [facility] [address] [id number] [place] [address] Jul, [facility] [address] [id number] [place] [address] Jun, [facility] [address] [id number] [place] [address] 14 Jun, 2011 [facility] [address] [id number] [place] [address] 13 Jun, 2011 [facility] [address] [id number] [place] [address] 07 Jun, 2011 [facility] [address] [id number] [place] [address] 03 Jun, 2011 [facility] [address] [id number] [place] [address] May, [facility] [address] [id number] [place] [address] May, [facility] [address] [id number] [place] [address] May, [facility] [address] [id number] [place] [address] May, [facility] [address] [id number] [place] [address] Apr, [facility] [address] [id number] [place] [address] Apr, [facility] [address] [id number] [place] [address] 05 Apr, 2011 [facility] [address] [id number] [place] [address] Mar, [facility] [address] [id number] [place] [address] Mar, [facility] [id number] [place] [address] Mar, [facility] [id number] [place] [address] Feb, [facility] [id number] [place] [address] Feb, [facility] [id number] [place] [address] Feb, [facility] [id number] [place] [address] Nov, [facility] [id number] [place] [address] September, [facility] [id number] [place] [address] Aug, [facility] [id number] [place] [address] Jul, [facility] [id number] [place] [address] May, [facility] [id number] [place] [address] Apr, [facility] [id number] [place] [address] Apr, [facility] [id number] [place] [address] Apr, [facility] [id number] [place] [address] Apr, [facility] [id number] [place] [address] Apr, IMMUNIZATIONS No Known Immunizations SOCIAL HISTORY Never Assessed REASON FOR VISIT PLAN OF CARE VITAL SIGNS Height 66 in 2013-07-06 Weight 162.5 lbs 2013-07-06 Temperature 98.3 degrees Fahrenheit 2013-07-06 Heart Rate 110 bpm 2013-07-06 Respiratory Rate 20 2013-07-06 Blood pressure systolic 142 mmHg 2013-07-06 Blood pressure diastolic 80 mmHg 2013-07-06 MEDICATIONS Unknown Medications RESULTS No Results PROCEDURES [...]
--- OUTSIDE RECORDS SUMMARY | 2019-07-17 10:38 | XMS REPORT ---
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 Name Role Phone WHIT GANDHI Unavailable PROBLEMS Type Condition ICD9-CM Code [id number] Code Onset Dates Condition S tatus SNOMED Code Problem Acute non-recurrent maxillary sinusitis J01.00 Active 27046606 Problem Moderate persistent asthma without complication J4 5.40 Active 876593654 Problem Mild persistent asthma without complication J45.30 Active 416015621 Problem Akathisia G25.71 Active 169076441 Problem GERD (gastroesophageal reflux disease) K21.9 Active 008101342 Problem Panlobular emphysema J43.1 Active 9716260 Problem Fibrocystic disease of left breast N60.12 Active 78984336 Problem Hypertension I10 Active 2033025 3 Problem Migraine without aura and without status migrain osus, not intractable G43.009 Active 974917379 Problem Diabetes E11.9 Active 50396116 Problem Mood disorder F39 Active 235654 05 Problem Attention deficit hyperactiv ity disorder (ADHD), predominantly inattentive type F90.0 Active 52809712 Problem Contracture, left hand M24.542 Active [id number] Problem Bipolar affective disorder, remission status unspecified F31.9 Active 83281389 Problem Bipolar 1 disorder, depressed, partial remission F 31.75 Active 52120374 Problem Bipolar I disorder with depression F31.9 Active 87699856 Problem Schizoaffective disorder, bipolar type F25.0 Active 58674116 Problem Irritable bowel syndrome with both constipation and diarrh ea K58.2 Active 56843335 Problem Slow transit constipation K59.01 Acti ve 21561005 Problem Lumbago with sciatica, left side M54.42 Active 273651361 Problem Essential tremor G25.0 Active 609 436918 Problem Chronic obstructive pulmonary disease, unspecified J44.9 Active 60562756 Problem Abnormal mammogram of right breast R92.8 Active 861247735 Problem Other chronic pain G89.29 Active 8 1020838 Problem Daytime somnolence R40.0 Active 1 03696525105 Problem Lumbago with sciatica, right side M54.41 Active 140579689 Problem Tinnitus of both ears H93.13 Active 4063627165454 Problem Chronic post-traumatic stress disorder (PTSD) F43. 12 Active 490258680 Problem Tinnitus of right ear H93.11 Active 03518473 Problem Bipolar 1 disorder, depressed, moderate F31.32 Active 87006639 Problem Diffuse cystic mastopathy of left breast N60.12 Active 40937075 Problem Diffuse cystic mastopathy of right breast N60.11 Active 28793624 Problem Hemiplegia and hemiparesis f ollowing unspecified cerebrovascular disease affecting right dominant side I69.951 Active 629774463 Problem Daytime sleepiness R40.0 Active 1 06381716675 Problem Arthritis M19.90 Active 1378105 Problem Anxiety disorder, unspecified F41.9 Active 917832059 Problem High risk medications (not anticoagulants) long-term use Z79.899 Active 377670332 Problem Fibrocystic disease of right breast N60.11 Active 33589240 Problem Back pain M54.9 Active 016605095 Problem Fibromyalgia M79.7 Active 9459026 7 Problem Irritable bowel syndrome with constipation K58.1 Active 961910488 Problem Other bipolar disorder F31.89 Active 47455588 Problem Rheumatoid arthritis with rh eumatoid factor of right hip without organ or systems involvement M05.751 Active 85497 5006 Problem Rheumatoid arthritis of left hip without organ or system involvement with positive rheumatoid factor M05.752 Active 167129768 Problem Panic disorder with agoraphobia F40.01 Active 48357143 Problem Type 2 diabetes mellitus wit h diabetic neuropathy, without long-term current use of insulin E11.40 Active 57213 006 Problem 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 41.114 Active 052453019 ALLERGIES No Information ENCOUNTERS Encounter Location Date Diagnosis [place] [address] [id number] [place] [address] Aug, [place] [address] [id number] [place] [address] Jun, [place] [address] [place] [id number] [place] [address] 15 May, 2019 [place] [address] [address] 14 May, 2019 [place] [address] [address] 14 May, 2019 Other chronic pain G89.29 and Hip pain, left M25.552 [place] [address] [address] 09 May, 2019 Schizoaffective disorder, bipolar type [...] Soft tissue lesion of elbow region M79.89 [place] [address] [address] 09 May, 2019 Bipolar 1 disorder, depressed, moderate F31.32 ; Panic disorder with agoraphobia F40.01 ; Chronic post-traumatic stress disorder (PTSD) F43.12 ; High risk medications (not anticoagulants) long-term use Z79.899 and Diabetes E11.9 [place] [address] [address] 17 Apr, 2019 Diabetes E11.9 ; Other chronic pain G89. 29 and Hip pain, left M25.552 [place] [address] [address] 16 Apr, 2019 Bloating R14.0 [place] [address] [address] Apr, Bloating R14.0 ; Slow transit constipati on K59.01 and Generalized abdominal mass R19.07 [place] [address] [address] Apr, [place] [address] [address] Apr, [facility] [address] [address] Apr, Bloating R14.0 ; Slow transit constipati on K59.01 and Generalized abdominal mass R19.07 [facility] [address] [address] Mar, Diabetes E11.9 and Other chronic pain G8 9.29 [place] [address] [address] Mar, [place] [address] [address] Mar, Edema, lower extremity R60.0 and Diabete s E11.9 [place] [address] [address] Mar, [place] [address] [address] Feb, Diabetes E11.9 and Other chronic pain G8 9.29 [place] [address] [address] Feb, [place] [address] [address] Feb, [place] [address] [address] Feb, [place] [address] [address] Feb, Bronchitis J40 and Encounter for immuniz ation Z23 [place] [address] [address] Jan, Diabetes E11.9 and Other chronic pain G8 9.29 [place] [address] [address] Jan, Hypertension I10 [place] [address] [address] 16 Jan, 2019 Daytime somnolence R40.0 [place] [address] [address] 12 Jan, 2019 Open wound of left elbow, initial encoun ter S51.002A and 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41.114 [place] [address] [address] Jan, Diabetes E11.9 and Other chronic pain G8 9.29 [place] [address] [address] Jan, [place] [address] [address] Jan, Daytime sleepiness R40.0 [place] [address] [address] Jan, [place] [address] [address] Jan, [place] [address] [address] Jan, [place] [address] [address] Dec, Diabetes E11.9 and Other chronic pain G8 9.29 [place] [address] [address] Dec, [place] [address] [address] Dec, [place] [address] [address] Dec, Abdominal spasms R10.9 ; Rheumatoid arth ritis with rheumatoid factor of right hip without organ or systems involvement M05.751 ; Rheumatoid arthritis of left hip without organ or system involvement with positive rheumatoid factor M05.752 and Type 2 diabetes mellitus with diabetic neuropathy, without long-term current use of insulin E11.40 [place] [address] [address] Dec, Diabetes E11.9 and Other chronic pain G8 9.29 [place] [address] [address] Nov, [facility] [address] [address] Nov, Hip pain, left M25.552 [facility] [address] [address] Nov, [facility] [address] [address] Nov, [facility] [address] [address] Nov, Hemiplegia and hemiparesis following uns pecified cerebrovascular disease affecting right dominant side I69.951 ; Diabetes E11.9 ; Daytime somnolence R40.0 and Other chronic pain G89.29 [facility] [address] [address] Nov, [facility] [address] [address] Nov, [facility] [address] [address] Nov, Hemiplegia and hemiparesis following uns pecified cerebrovascular disease affecting right dominant side I69.951 ; Lower leg edema R60.0 and Plantar fasciitis, bilateral M72.2 [facility] [address] [address] Oct, [facility] [address] [address] Oct, Daytime somnolence R40.0 ; Diabetes E11. 9 and Other chronic pain G89.29 [facility] [address] [address] Oct, Edema, lower extremity R60.0 and Hip higinio n, left M25.552 [facility] [address] [address] Oct, [facility] [address] [address] September, [facility] [address] [address] September, Diabetes E11.9 and Other chronic pain G8 9.29 [facility] [address] [address] September, Diabetes E11.9 and Other chronic pain G8 9.29 [facility] [address] [address] September, [facility] [address] [address] Aug, [place] [address] [address] Aug, Hypertension I10 [place] [address] [address] Aug, [place] [address] [address] Aug, [place] [address] [address] Aug, Diabetes E11.9 and Edema of both legs R6 0.0 [place] [address] [address] Aug, Panic disorder with agoraphobia F40.01 ; Other chronic pain G89.29 and Daytime somnolence R40.0 [place] [address] [address] Jul, [place] [address] [address] Jul, [place] [address] [address] Jul, Diffuse cystic mastopathy of left breast N60.12 and Diffuse cystic mastopathy of right breast N60.11 [place] [address] [address] Jul, Fibrocystic disease of right breast N60. 11 [place] [address] [address] 18 Jul, 2018 Fibrocystic disease of right breast N60. 11 and Fibrocystic disease of left breast N60.12 [place] [address] [address] 15 Jul, 2018 Encounter for Medicare annual wellness e xam Z00.00 ; Schizoaffective disorder, bipolar type F25.0 ; Chronic obstructive pulmonary disease, unspecified J44.9 ; Fibromyalgia M79.7 and Acute non-recurrent maxillary sinusitis J01.00 [place] [address] [address] 14 Jul, 2018 Daytime somnolence R40.0 [place] [address] [address] 14 Jul, 2018 [place] [address] [address] 13 Jul, 2018 [place] [address] [address] 12 Jul, 2018 Panic disorder with agoraphobia F40.01 ; Anxiety disorder, unspecified F41.9 ; Other chronic pain G89.29 and Daytime somnolence R40.0 [place] [address] [address] Jul, [place] [address] [address] 28 Jun, [address] [address] 08 Jun, 2018 Hip pain, left M25.552 ; Leg pain, left M79.605 ; Lumbar pain M54.5 and Mood disorder F39 [address] [address] 08 Jun, 2018 Diabetes E11.9 ; Other chronic pain G89. 29 and Anxiety disorder, unspecified F41.[id number] [place] [address] 07 Jun, 2018 Hip pain, left M25.552 ; Leg pain, left M79.605 ; Lumbar pain M54.5 and Mood disorder F39 [place] [address] [address] May, Diabetes E11.9 [place] [address] [address] May, [place] [address] [address] May, Other chronic pain G89.29 and Anxiety di sorder, unspecified F41.9 [place] [address] [address] May, [place] [address] [address] May, [place] [address] [address] May, Tinnitus of right ear H93.[address] [address] May, Diabetes E11.9 ; Tinnitus of both ears H 93.13 ; Contracture, left hand M24.542 and Family history of rheumatic joint disease Z82.69 [place] [address] [address] Apr, [place] [address] [address] Apr, [place] [address] [address] Apr, Tinnitus of right ear H93.11 and Hyperte nsion I10 [place] [address] [address] Apr, Other chronic pain G89.29 ; Daytime somn olence R40.0 and Anxiety disorder, unspecified F41.9 [place] [address] [address] 13 Apr, 2018 [facility] [address] [address] Apr, [facility] [address] [address] Mar, Tinnitus of right ear H93.11 [facility] [address] [address] Mar, [facility] [address] [address] Mar, Anxiety disorder, unspecified F41.9 ; Ot her chronic pain G89.29 and Daytime somnolence R40.0 [place] [address] [address] Mar, Irritable bowel syndrome with both const ipation and diarrhea K58.2 [place] [address] [address] Mar, [facility] [address] [address] Mar, Hypertension I10 [place] [address] [address] 14 Mar, 2018 [place] [address] [address] 12 Mar, 2018 [facility] [address] [address] Mar, [facility] [address] [address] 07 Mar, 2018 Diabetes E11.9 [facility] [address] [address] Mar, [facility] [address] [address] Feb, Daytime somnolence R40.0 and Anxiety dis order, unspecified F41.9 [facility] [address] [place] [id number] [place] [address] Feb, [facility] [address] [address] Feb, [place] [address] [address] Feb, Tremors of nervous system R25.1 and Acut e swimmer''s ear of right side H60.331 [place] [address] [address] Feb, Cerebrovascular accident (CVA) due to oc clusion of right cerebellar artery I63.541 and Hypertension I10 [place] [address] [place] [id number] [place] [address] Feb, [place] [address] [address] Feb, Cerebrovascular accident (CVA) due to oc clusion of right cerebellar artery I63.541 [facility] [address] [address] [id number] [id number] Feb, Hyponatremia E87.1 [place] [address] [address] Feb, [place] [address] [address] Feb, Daytime somnolence R40.0 [place] [address] [place] [id number] [place] [address] Feb, [place] [address] [address] Jan, [place] [address] [address] Jan, [place] [address] [address] Jan, Chronic obstructive pulmonary disease, u nspecified J44.9 and Anxiety disorder, unspecified F41.9 [place] [address] [address] 27 Jan, 2018 Hypertension I10 ; Fibromyalgia M79.7 an d Lumbago with sciatica, left side M54.42 [place] [address] [address] 26 Jan, 2018 [place] [address] [address] 20 Jan, 2018 Cerebrovascular accident (CVA) due to oc clusion of right cerebellar artery I63.541 [place] [address] [address] 19 Jan, 2018 [place] [address] [address] 13 Jan, 2018 Arthritis M19.90 [place] [address] [address] 07 Jan, 2018 [place] [address] [address] 04 Jan, 2018 Abnormal mammogram of right breast R92.8 [place] [address] [address] Dec, Daytime somnolence R40.0 and Right otiti s media with effusion H65.91 [place] [address] [address] Dec, [place] [address] [address] Dec, Cerebrovascular accident (CVA) due to oc clusion of right cerebellar artery I63.541 [place] [address] [address] Dec, [place] [address] [address] Dec, [place] [address] [address] Nov, Bipolar 1 disorder, depressed, partial r emission F31.75 and Panic disorder with agoraphobia F40.01 [facility] [address] [address] Nov, Panlobular emphysema J43.1 [facility] [address] [address] Nov, Cerebrovascular accident (CVA) due to oc clusion of right cerebellar artery I63.541 and Acute non-recurrent maxillary sinusitis J01.00 [facility] [address] [address] Nov, Panlobular emphysema J43.1 [facility] [address] [address] Nov, [facility] [address] [address] Nov, [facility] [address] [address] Nov, [facility] [address] [address] Nov, [facility] [address] [address] Nov, [facility] [address] [address] Nov, [facility] [address] [address] Nov, [facility] [address] [address] Nov, Mild persistent asthma without complicat ion J45.30 and Irritable bowel syndrome with both constipation and diarrhea K58.2 [facility] [address] [address] Nov, [facility] [address] [address] Oct, [facility] [address] [address] Oct, [facility] [address] [address] Oct, Type 2 diabetes mellitus with diabetic n europathy, unspecified whether usp insulin use E11.40 ; Diabetes E11.9 ; Slow transit constipation K59.01 ; Edema of both legs R60.0 and Dysfunction of right eustachian tube H69.81 [facility] [address] [address] Oct, Frequent headaches R51 [facility] [address] [address] Oct, [facility] [address] [address] Oct, [facility] [address] [address] Oct, [facility] [address] [address] Oct, [facility] [address] [address] Oct, [facility] [address] [address] Oct, [facility] [address] [address] Oct, [facility] [address] [address] Oct, [facility] [address] [address] September, Frequent headaches R51 [facility] [address] [address] September, Bilateral otitis media with effusion H65 .93 ; Dizziness R42 and Essential tremor G25.0 [facility] [address] [address] September, Chronic obstructive pulmonary disease, u nspecified COPD type J44.9 [facility] [address] [address] September, Chronic obstructive pulmonary disease, u nspecified COPD type J44.9 [place] [address] [address] September, Migraine without aura and without status migrainosus, not intractable G43.009 [place] [address] [address] September, [place] [address] [address] September, [place] [address] [address] September, [place] [address] [address] September, Frequent headaches R51 [place] [address] [address] Aug, [place] [address] [address] Aug, Breast mass, right N63.10 [place] [address] [address] Aug, Breast lump N63.0 [place] [address] [address] Aug, [place] [address] [address] Aug, Bipolar affective disorder, remission st atus unspecified F31.9 and Diabetes E11.9 [place] [address] [address] Aug, Diabetes E11.9 ; Schizoaffective disorde r, bipolar type F25.0 ; Pharyngitis due to other organism J02.8 ; Panlobular emphysema J43.1 and Irritable bowel syndrome with both constipation and diarrhea K58.2 [place] [address] [address] Aug, Abnormal mammogram R92.8 [facility] [address] [address] Aug, [place] [address] [address] Aug, Bipolar 1 disorder, depressed, moderate F31.32 ; Panic disorder with agoraphobia F40.01 and Chronic post-traumatic stress disorder (PTSD) F43.12 [place] [address] [address] Aug, [place] [address] [address] Aug, [place] [address] [address] Aug, [place] [address] [address] Jul, [place] [address] [address] Jul, Mild persistent asthma without complicat ion J45.30 [place] [address] [address] Jul, Mild persistent asthma without complicat ion J45.30 [place] [address] [address] Jul, Bipolar affective disorder, remission st atus unspecified F31.9 ; Diabetes E11.9 and Irritable bowel syndrome with constipation K58.1 [place] [address] [address] Jul, [place] [address] [address] Jul, [facility] [address] [address] Jul, Frequent headaches R51 [place] [address] [address] Jul, [place] [address] [id number] [place] [address] Jul, [place] [address] [address] Jul, [place] [address] [address] Jul, Frequent headaches R51 ; Fibrocystic dis ease of left breast N60.12 ; Fibrocystic disease of right breast N60.11 and Diabetes E11.9 [place] [address] [address] Jul, [place] [address] [address] Jul, [place] [address] [address] Jun, Exudative tonsillitis J03.90 [place] [address] [address] Jun, [place] [address] [address] 19 Jun, 2017 [place] [address] [address] 15 Jun, 2017 Mild persistent asthma without complicat ion J45.30 ; Chronic obstructive pulmonary disease, unspecified COPD type J44.9 and Exudative tonsillitis J03.90 [place] [address] [address] 13 Jun, 2017 Encounter for immunization Z23 [place] [address] [address] Jun, [place] [address] [address] Jun, [place] [address] [address] 09 Jun, 2017 [facility] [address] [facility] [id number] [address] 06 Jun, 2017 Tonsillitis J03.90 [place] [address] [address] 05 Jun, 2017 [facility] [address] [address] 03 Jun, 2017 Acute non-recurrent maxillary sinusitis J01.00 [place] [address] [address] 02 Jun, 2017 [place] [address] [address] May, [place] [address] [address] May, [place] [address] [address] May, GERD (gastroesophageal reflux disease) K 21.9 [place] [address] [address] May, Migraine without aura and without status migrainosus, not intractable G43.009 [place] [address] [address] May, [place] [address] [address] May, [place] [address] [address] May, Panlobular emphysema J43.1 and Acute non -recurrent maxillary sinusitis J01.00 [place] [address] [address] May, Bipolar 1 disorder, depressed, moderate F31.32 ; Panic disorder with agoraphobia F40.01 and Akathisia G25.71 [place] [address] [address] Apr, [facility] [address] [address] 14 Apr, 2017 [facility] [facility] [address] [address] 13 Apr, 2017 Acute non-recurrent maxillary sinusitis J01.00 [facility] [address] [address] 07 Apr, 2017 Panlobular emphysema J43.1 [facility] [address] [address] 04 Apr, 2017 [facility] [address] [facility] [id number] [address] [place] [address] 04 Apr, 2017 Exudative tonsillitis J03.90 and Sore throat J02.9 [place] [address] [address] Mar, [facility] [address] [address] Mar, Acute non-recurrent maxillary sinusitis J01.00 [facility] [address] [address] Mar, [facility] [address] [address] Mar, Panlobular emphysema J43.1 and Diabetes E11.9 [facility] [address] [address] Mar, [facility] [address] [facility] [id number] [address] [place] [address] Feb, Wheezing R06.2 and Acute rec urrent pansinusitis J01.41 [facility] [address] [address] Feb, [place] [address] [address] Feb, Acute non-recurrent maxillary sinusitis J01.00 [facility] [address] [address] Feb, Chronic obstructive pulmonary disease, u nspecified J44.9 [facility] [address] [address] 02 Feb, 2017 Hypoxemia R09.02 and Chronic obstructive pulmonary disease, unspecified J44.9 [facility] [address] [address] 28 Jan, 2017 Bipolar 1 disorder, depressed, moderate F31.32 ; Panic disorder with agoraphobia F40.01 ; Chronic post-traumatic stress disorder (PTSD) F43.12 ; Diabetes E11.9 and Moderate persistent asthma without complication J45.40 [place] [address] [address] 22 Jan, 2017 [place] [address] [address] 19 Jan, 2017 Acute non-recurrent maxillary sinusitis J01.00 [place] [address] [address] 18 Jan, 2017 [facility] [address] [address] 18 Jan, 2017 [place] [address] [address] 12 Jan, 2017 Moderate persistent asthma without compl ication J45.40 and Hypoxemia R09.02 [place] [address] [address] 11 Jan, 2017 Moderate persistent asthma without compl ication J45.40 and Hypoxemia R09.02 [place] [address] [address] 11 Jan, 2017 [place] [address] [address] Dec, Acute non-recurrent maxillary sinusitis J01.00 [facility] [address] [address] Dec, Chronic obstructive pulmonary disease, u nspecified J44.9 [facility] [address] [address] Dec, [facility] [address] [address] Dec, Mild persistent asthma without complicat ion J45.30 and Other chronic pain G89.29 [facility] [address] [address] Nov, [facility] [address] [address] Nov, Acute non-recurrent maxillary sinusitis J01.00 [facility] [address] [address] Nov, [place] [address] [address] Nov, [place] [address] [address] Oct, [facility] [address] [address] Oct, Bipolar 1 disorder, depressed, partial r emission F31.75 ; Panic disorder with agoraphobia F40.01 and Chronic post-traumatic stress disorder (PTSD) F43.12 [place] [address] [address] Oct, Acute non-recurrent maxillary sinusitis J01.00 [place] [address] [address] Oct, [place] [address] [address] Oct, Diabetes E11.9 [place] [address] [address] September, Diabetes E11.9 [place] [address] [address] September, Diabetes E11.9 and Sinus tachycardia R00 .0 [place] [address] [address] September, [facility] [address] [address] September, [facility] [address] [address] Aug, Diabetes E11.9 and Lumbago with sciatica , right side M54.41 [facility] [address] [address] Aug, [facility] [address] [address] Jul, Bipolar 1 disorder, depressed, moderate F31.32 ; Panic disorder with agoraphobia F40.01 and Chronic post-traumatic stress disorder (PTSD) F43.12 [place] [address] [address] Jul, Sore throat J02.9 [place] [address] [address] Jul, [facility] [address] [address] Jul, [facility] [address] [address] Jul, [facility] [address] [address] Jul, [facility] [address] [address] Jul, Sore throat J02.9 and Pharyngitis, unspe cified etiology J02.9 [facility] [address] [address] Jun, [facility] [address] [address] Jun, Diabetes E11.9 [facility] [address] [address] Jun, [facility] [address] [address] Jun, [facility] [address] [address] Jun, [facility] [address] [address] Jun, [facility] [address] [address] Jun, [facility] [address] [address] Jun, [facility] [address] [address] Jun, [facility] [address] [address] Jun, [facility] [address] [address] May, Diabetes E11.9 ; Other chronic pain G89. 29 ; Acute recurrent maxillary sinusitis J01.01 ; Bipolar I disorder with depression F31.9 and Anxiety disorder, unspecified F41.9 [facility] [address] [address] May, [facility] [address] [address] May, Diabetes E11.9 ; Bipolar I disorder with depression F31.9 ; Anxiety disorder, unspecified F41.9 ; Other chronic pain G89.29 and Acute recurrent maxillary sinusitis J01.01 [facility] [address] [address] May, [facility] [address] [address] May, Attention deficit hyperactivity disorder (ADHD), predominantly inattentive type F90.0 [facility] [address] [address] May, [facility] [address] [address] Apr, Attention deficit hyperactivity disorder (ADHD), predominantly inattentive type F90.0 and Non-seasonal allergic rhinitis due to other allergic trigger J30.89 [place] [address] [address] Apr, Bipolar 1 disorder, depressed, moderate F31.32 ; Panic disorder with agoraphobia F40.01 and Chronic post-traumatic stress disorder (PTSD) F43.12 [place] [address] [address] Apr, Dental examination Z01.20 [place] [address] [address] Mar, [place] [address] [address] Mar, [place] [address] [address] Mar, Bipolar I disorder with depression F31.9 and Anxiety disorder, unspecified F41.[address] [address] Mar, Panic disorder with agoraphobia F40.01 ; Bipolar 1 disorder, depressed, moderate F31.32 and Chronic post-traumatic stress disorder (PTSD) F43.12 [place] [address] [address] Mar, [address] [address] Mar, Dental caries K02.9 [place] [address] [address] Feb, Lumbago with sciatica, left side M54.42 ; Lumbago with sciatica, right side M54.41 and Other chronic pain G89.29 [place] [address] [address] 17 Feb, 2016 [place] [address] [address] 14 Feb, 2016 [facility] [address] [address] 13 Feb, 2016 Bipolar I disorder with depression F31.9 ; PTSD (post-traumatic stress disorder) F43.10 and Mood disorder F39 [facility] [address] [address] 13 Feb, 2016 [facility] [address] [address] 11 Feb, 2016 Dental examination Z01.20 [facility] [address] [address] 07 Feb, 2016 [facility] [address] [facility] [id number] [address] [place] [address] 03 Feb, 2016 Acute bronchitis, unspecifie d organism J20.9 [place] [address] [address] 26 Jan, 2016 Mood disorder F39 ; Migraine without aur a and without status migrainosus, not intractable G43.009 ; Irritable bowel syndrome, unspecified type K58.9 ; Diabetes E11.9 and Encounter for immunization Z23 [place] [address] [address] 15 Jan, 2016 [place] [address] [address] 06 Jan, 2016 [place] [address] [address] Jan, [facility] [address] [address] Jan, [place] [address] [address] Jan, [place] [address] [address] Dec, Bipolar I disorder with depression F31.9 ; PTSD (post-traumatic stress disorder) F43.10 and Panic disorder with agoraphobia F40.01 [place] [address] [address] Dec, Chronic obstructive pulmonary disease, u nspecified COPD type J44.9 ; Tremor R25.1 and Anxiety F41.9 [facility] [address] [address] Dec, [facility] [address] [address] Nov, Tremors of nervous system R25.1 and Cram ping of feet R25.2 [facility] [address] [address] Nov, [place] [address] [address] Nov, [place] [address] [address] Oct, Chronic obstructive pulmonary disease, u nspecified J44.9 [facility] [address] [address] Oct, [facility] [address] [address] Oct, Tremor R25.1 [facility] [address] [address] Oct, Bipolar I disorder with depression F31.9 ; Diabetes E11.9 ; PTSD (post-traumatic stress disorder) F43.10 and Panic disorder with agoraphobia F40.01 [facility] [address] [address] Oct, Mood disorder F39 [facility] [address] [address] September, [facility] [address] [address] September, Diabetes E11.9 ; Bipolar I disorder with depression F31.9 ; PTSD (post-traumatic stress disorder) F43.10 and Panic disorder with agoraphobia F40.01 [place] [address] [address] September, Mood disorder F39 ; Schizoaffective diso rder, unspecified type F25.9 ; Arthritis M19.90 ; Tremor R25.1 ; Acute non-recurrent frontal sinusitis J01.10 and Blood in stool K92.1 [place] [address] [address] September, [place] [address] [address] September, Chronic obstructive pulmonary disease, u nspecified J44.9 [place] [address] [address] September, Diabetes E11.9 [place] [address] [address] Aug, Other bipolar disorder F31.89 and Anxiet y disorder, unspecified F41.9 [place] [address] [address] Aug, [place] [address] [address] Aug, Diabetes E11.9 [place] [address] [address] Aug, [place] [address] [address] 14 Aug, 2015 Diabetes E11.9 ; Fatigue R53.83 and Dizz iness R42 [place] [address] [address] Aug, Other bipolar disorder F31.89 [place] [address] [address] Aug, Generalized anxiety disorder F41.1 [place] [address] [address] Aug, Other bipolar disorder F31.89 and Anxiet y disorder, unspecified F41.9 [facility] [address] [address] 04 Aug, 2015 [facility] [address] [address] 29 Jul, 2015 [facility] [address] [address] 24 Jul, 2015 [facility] [address] [address] Jul, Bronchitis J40 [facility] [address] [address] Jul, Anxiety disorder F41.9 [facility] [address] [address] Jul, Other bipolar disorder F31.89 and Anxiet y disorder, unspecified F41.9 [facility] [address] [address] Jul, Other bipolar disorder F31.89 and Fibrom yalgia M79.7 [facility] [address] [address] Jul, [facility] [address] [address] Jul, [facility] [address] [address] Jul, [facility] [address] [address] 08 Jul, 2015 Other bipolar disorder F31.89 and Anxiet y disorder, unspecified F41.9 [facility] [address] [address] 25 Jun, 2015 GERD (gastroesophageal reflux disease) K 21.9 [facility] [address] [address] 08 Jun, 2015 [facility] [address] [address] May, [facility] [address] [address] May, Diabetes E11.9 ; Back pain M54.9 ; GERD (gastroesophageal reflux disease) K21.9 ; Hypertension I10 and Peripheral neuropathy G62.9 [facility] [address] [address] Mar, [facility] [address] [address] Mar, [facility] [address] [address] Mar, Acute sinusitis J01.90 and Otitis media, left H66.92 [facility] [address] [address] Feb, [facility] [address] [address] Feb, [facility] [address] [address] Feb, [facility] [address] [address] Feb, [facility] [address] [address] Jan, [facility] [address] [address] Jan, Diabetes 250.00 and Back pain 724.5 [facility] [address] [address] Jan, [facility] [address] [address] Dec, Diabetes 250.00 ; Benign essential hyper tension 401.1 and Allergic rhinitis 477.9 [facility] [address] [address] Dec, [facility] [address] [address] Dec, [facility] [address] [place] [id number] [place] [address] Dec, Psychosis 298.9 [facility] [address] [address] Dec, Medication side effect 995.20 and Genera lized anxiety disorder 300.02 [facility] [address] [place] [id number] [place] [address] Dec, Acquired cognitive dysfunction 294.9 [facility] [address] [place] [id number] [place] [address] Dec, [facility] [address] [address] Dec, Unspecified myalgia and myositis 729.1 a nd Generalized anxiety disorder 300.02 [facility] [address] [place] [id number] [place] [address] Nov, [facility] [address] [place] [id number] [place] [address] Nov, [facility] [address] [place] [id number] [place] [address] Nov, [facility] [address] [place] [id number] [place] [address] Nov, Upper respiratory infection 465.9 and Ch ronic airway obstruction, not elsewhere classified 496 [facility] [address] [place] [id number] [place] [address] Nov, Hyponatremia 276.1 [facility] [address] [place] [id number] [place] [address] Oct, [facility] [address] [place] [id number] [place] [address] Oct, [facility] [address] [place] [id number] [place] [address] Oct, [facility] [address] [place] [id number] [place] [address] Oct, [facility] [address] [place] [address] [place] [address] 04 Oct, 2014 Hyponatremia 276.1 [facility] [address] [place] [id number] [place] [address] Oct, [facility] [address] [place] [id number] [place] [address] Oct, [facility] [address] [place] [id number] [place] [address] Oct, Generalized anxiety disorder 300.02 [facility] [address] [place] [id number] [place] [address] Oct, Generalized anxiety disorder 300.02 and Diabetes 250.00 [facility] [address] [place] [id number] [place] [address] Aug, [facility] [address] [place] [id number] [place] [address] Aug, [facility] [address] [place] [id number] [place] [address] Jul, [facility] [address] [place] [id number] [place] [address] Jul, [facility] [address] [place] [id number] [place] [address] Jun, [facility] [address] [place] [id number] [place] [address] Jun, [facility] [address] [place] [id number] [place] [address] Jun, [facility] [address] [id number] [place] [address] Jun, [facility] [address] [place] [id number] [place] [address] Jun, [facility] [address] [id number] [place] [address] May, [facility] [id number] [place] [address] May, [facility] [address] [id number] [place] [address] Apr, 2012 [facility] [address] [id number] [place] [address] Apr, 2012 [facility] [address] [id number] [place] [address] Apr, 2012 [facility] [address] [id number] [place] [address] Apr, 2012 [facility] [address] [id number] [place] [address] Apr, 2012 [facility] [address] [id number] [place] [address] Apr, 2012 [facility] [address] [id number] [place] [address] Apr, [facility] [address] [id number] [place] [address] Apr, [facility] [address] [id number] [place] [address] Feb, [facility] [address] [id number] [place] [address] Feb, [facility] [address] [id number] [place] [address] Jan, [facility] [address] [id number] [place] [address] Jan, [facility] [address] [id number] [place] [address] Dec, [facility] [address] [id number] [place] [address] Dec, [facility] [address] [id number] [place] [address] Dec, [facility] [address] [id number] [place] [address] Nov, [facility] [address] [id number] [place] [address] Nov, [facility] [address] [facility] [id number] [place] [address] Nov, [facility] [address] [id number] [facility] [place] [address] Oct, [facility] [address] [id number] [place] [address] Oct, [facility] [address] [id number] [place] [address] Oct, [facility] [address] [facility] [id number] [place] [address] September, [facility] [address] [id number] [place] [address] September, [facility] [address] [id number] [place] [address] September, [facility] [address] [id number] [place] [address] Aug, [facility] [address] [id number] [place] [address] Aug, [facility] [address] [id number] [place] [address] Aug, [facility] [address] [id number] [place] [address] Aug, [facility] [address] [id number] [place] [address] Jul, [facility] [address] [id number] [place] [address] Jun, [facility] [address] [id number] [place] [address] 14 Jun, 2011 [facility] [address] [id number] [place] [address] 13 Jun, 2011 [facility] [address] [id number] [place] [address] 07 Jun, 2011 [facility] [address] [id number] [place] [address] Jun, [facility] [address] [id number] [place] [address] May, [facility] [address] [id number] [place] [address] May, [facility] [address] [id number] [place] [address] May, [facility] [address] [id number] [place] [address] May, [facility] [address] [id number] [place] [address] Apr, [facility] [address] [id number] [place] [address] Apr, [facility] [address] [id number] [place] [address] Apr, [facility] [address] [id number] [place] [address] Mar, [facility] [address] [id number] [place] [address] Mar, [facility] [address] [id number] [place] [address] Mar, [facility] [address] [id number] [place] [address] Feb, [facility] [address] [id number] [place] [address] 13 Feb, 2011 [facility] [address] [id number] [place] [address] 13 Feb, 2011 [facility] [id number] [place] [address] Nov, [facility] [address] [id number] [place] [address] September, [facility] [id number] [place] [address] Aug, [facility] [address] [id number] [place] [address] Jul, [facility] [address] [id number] [place] [address] May, [facility] [address] [id number] [place] [address] Apr, [facility] [address] [id number] [place] [address] Apr, [facility] [address] [id number] [place] [address] Apr, [facility] [address] [id number] [place] [address] Apr, [facility] [address] [id number] [place] [address] Apr, IMMUNIZATIONS No Known Immunizations SOCIAL HISTORY Never Assessed REASON FOR VISIT needs mammo order change PLAN OF CARE VITAL SIGNS MEDICATIONS Unknown [...]
--- OUTSIDE RECORDS SUMMARY | 2019-07-17 10:39 | XMS REPORT ---
Author Author Sujey GANDHI Organization [facility] Address [address] [place] [address] Care Team Providers Care Books Salesperson Name Role Phone WHIT GANDHI Unavailable PROBLEMS Type Condition ICD9-CM Code WHM60-KE Code Onset Dates Condition S tatus SNOMED Code Problem Bipolar 1 disorder, depressed, partial remission F 31.75 Active 81377524 Problem Mild persistent asthma without complication J45.30 Active 445760990 Problem Acute non-recurrent maxillary sinusitis J01.00 Active 49685713 Problem Panlobular emphysema J43.1 Active 9949150 Problem Moderate persistent asthma without complication J4 5.40 Active 674431022 Problem Migraine without aura and without status migrain osus, not intractable G43.009 Active 229316041 Problem Diabetes E11.9 Active 45000063 Problem Akathisia G25.71 Active 622334271 Problem GERD (gastroesophageal reflux disease) K21.9 Active 377559258 Problem Contracture, left hand M24.542 Active [id number] Problem Bipolar affective disorder, remission status unspecified F31.9 Active 56562148 Problem Tinnitus of both ears H93.13 Active 4364713933266 Problem Chronic post-traumatic stress disorder (PTSD) F43. 12 Active 474223772 Problem Bipolar I disorder with depression F31.9 Active 19985300 Problem Attention deficit hyperactiv ity disorder (ADHD), predominantly inattentive type F90.0 Active 48605408 Problem Irritable bowel syndrome with both constipation and diarrh ea K58.2 Active 79506299 Problem Irritable bowel syndrome with constipation K58.1 Active 324833442 Problem Essential tremor G25.0 Active 609 934770 Problem Chronic obstructive pulmonary disease, unspecified J44.9 Active 71982170 Problem Schizoaffective disorder, bipolar type F25.0 Active 83586022 Problem Panic disorder with agoraphobia F40.01 Active 07906121 Problem Daytime somnolence R40.0 Active 1 27467376139 Problem Lumbago with sciatica, right side M54.41 Active 422282920 Problem Slow transit constipation K59.01 Acti ve 50908692 Problem Lumbago with sciatica, left side M54.42 Active 346586154 Problem Tinnitus of right ear H93.11 Active 04479150 Problem Bipolar 1 disorder, depressed, moderate F31.32 Active 53250804 Problem Abnormal mammogram of right breast R92.8 Active 686353680 Problem Other chronic pain G89.29 Active 8 4658272 Problem Mood disorder F39 Active 372883 05 Problem Diffuse cystic mastopathy of left breast N60.12 Active 84260195 Problem Diffuse cystic mastopathy of right breast N60.11 Active 22358131 Problem 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 41.114 Active 095792567 Problem Fibrocystic disease of right breast N60.11 Active 29948578 Problem Back pain M54.9 Active 109379755 Problem Daytime sleepiness R40.0 Active 1 30487429893 Problem Fibrocystic disease of left breast N60.12 Active 15192428 Problem Hypertension I10 Active 7170817 3 Problem Other bipolar disorder F31.89 Active 53841680 Problem Arthritis M19.90 Active 2810696 Problem Anxiety disorder, unspecified F41.9 Active 479668450 Problem Hemiplegia and hemiparesis f ollowing unspecified cerebrovascular disease affecting right dominant side I69.951 Active 587852470 Problem Rheumatoid arthritis of left hip without organ or system involvement with positive rheumatoid factor M05.752 Active 655969857 Problem Fibromyalgia M79.7 Active 3579108 7 Problem Rheumatoid arthritis with rh eumatoid factor of right hip without organ or systems involvement M05.751 Active 6 Problem Type 2 diabetes mellitus wit h diabetic neuropathy, without long-term current use of insulin E11.40 Active 67679 006 ALLERGIES No Information ENCOUNTERS Encounter Location Date Diagnosis [facility] [address] [facility] [id number] [address] [place] [address] Feb, [facility] [address] [facility] [id number] [address] [place] [id number] 23 Jan, 2019 Hypertension I10 [facility] [address] [facility] [id number] [address] [place] [address] 16 Jan, 2019 Daytime somnolence R40.0 [facility] [address] [id number] [address] [place] [address] Jan, Open wound of left elbow, in itial encounter S51.002A and 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41.114 [facility] [address] [id number] [address] [place] [address] Jan, Diabetes E11.9 and Other chr onic pain G89.29 [facility] [address] [id number] [address] [place] [address] Jan, [facility] [address] [id number] [address] [place] [address] Jan, Daytime sleepiness R40.0 [facility] [address] [id number] [address] [place] [address] Jan, [facility] [address] [id number] [address] [place] [address] Jan, [facility] [address] [id number] [address] [place] [address] Jan, [facility] [address] [id number] [address] [place] [address] Dec, Diabetes E11.9 and Other chr onic pain G89.29 [facility] [address] [id number] [address] [place] [address] Dec, [facility] [address] [id number] [address] [place] [address] Dec, [facility] [address] [id number] [address] [place] [address] Dec, Abdominal spasms R10.9 ; Rhe umatoid arthritis with rheumatoid factor of right hip without organ or systems involvement M05.751 ; Rheumatoid arthritis of left hip without organ or system involvement with positive rheumatoid factor M05.752 and Type 2 diabetes mellitus with diabetic neuropathy, without long-term current use of insulin E11.40 [facility] [address] [id number] [address] [place] [address] Dec, Diabetes E11.9 and Other chr onic pain G89.29 [facility] [address] [id number] [address] [place] [address] Nov, [facility] [address] [id number] [address] [place] [address] Nov, Hip pain, left M25.552 [facility] [address] [id number] [address] [place] [address] Nov, [facility] [address] [id number] [address] [place] [address] Nov, [facility] [address] [id number] [address] [place] [address] Nov, Hemiplegia and hemiparesis f ollowing unspecified cerebrovascular disease affecting right dominant side I69.951 ; Diabetes E11.9 ; Daytime somnolence R40.0 and Other chronic pain G89.29 [facility] [address] [id number] [address] [place] [address] Nov, [facility] [address] [id number] [address] [place] [address] Nov, [facility] [address] [id number] [address] [place] [address] Nov, Hemiplegia and hemiparesis f ollowing unspecified cerebrovascular disease affecting right dominant side I69.951 ; Lower leg edema R60.0 and Plantar fasciitis, bilateral M72.2 [facility] [address] [id number] [address] [place] [address] Oct, [facility] [address] [id number] [address] [place] [address] Oct, Daytime somnolence R40.0 ; D iabetes E11.9 and Other chronic pain G89.29 [facility] [address] [id number] [address] [place] [address] Oct, Edema, lower extremity R60.0 and Hip pain, left M25.552 [facility] [address] [id number] [address] [place] [address] Oct, [facility] [address] [id number] [address] [place] [address] September, [facility] [address] [id number] [address] [place] [address] September, Diabetes E11.9 and Other chr onic pain G89.29 [facility] [address] [id number] [address] [place] [address] September, Diabetes E11.9 and Other chr onic pain G89.29 [facility] [address] [id number] [address] [place] [address] September, [facility] [address] [id number] [address] [place] [address] Aug, [facility] [address] [id number] [address] [place] [address] Aug, Hypertension I10 [facility] [address] [id number] [address] [place] [address] Aug, [facility] [address] [id number] [address] [place] [address] Aug, [facility] [address] [id number] [address] [place] [address] Aug, Diabetes E11.9 and Edema of both legs R60.0 [facility] [address] [id number] [address] [place] [address] Aug, Panic disorder with agorapho syd F40.01 ; Other chronic pain G89.29 and Daytime somnolence R40.0 [facility] [address] [id number] [address] [place] [address] Jul, [facility] [address] [id number] [address] [place] [address] Jul, [place] [address] [place] [id number] [address] [place] [address] Jul, Diffuse cystic mastopathy of left breast N60.12 and Diffuse cystic mastopathy of right breast N60.11 [facility] [address] [facility] [id number] [address] [place] [address] Jul, Fibrocystic disease of right breast N60.11 [facility] [place] [address] [place] [id number] [address] [place] [address] 18 Jul, 2018 Fibrocystic disease of right breast N60.11 and Fibrocystic disease of left breast N60.12 [facility] [address] [place] [id number] [address] [place] [address] 15 Jul, 2018 Encounter for Medicare annua l wellness exam Z00.00 ; Schizoaffective disorder, bipolar type F25.0 ; Chronic obstructive pulmonary disease, unspecified J44.9 ; Fibromyalgia M79.7 and Acute non-recurrent maxillary sinusitis J01.00 [facility] [address] [place] [id number] [address] [place] [address] 14 Jul, 2018 Daytime somnolence R40.0 [facility] [address] [place] [id number] [address] [place] [address] 14 Jul, 2018 [place] [address] [place] [id number] [address] [place] [address] 13 Jul, 2018 [place] [address] [place] [id number] [address] [place] [address] Jul, Panic disorder with agorapho syd F40.01 ; Anxiety disorder, unspecified F41.9 ; Other chronic pain G89.29 and Daytime somnolence R40.0 [facility] [address] [place] [id number] [address] [place] [address] Jul, [facility] [address] [place] [id number] [address] [place] [address] Jun, [place] [address] [id number] [address] [place] [address] 08 Jun, 2018 Hip pain, left M25.552 ; Leg pain, left M79.605 ; Lumbar pain M54.5 and Mood disorder F39 [place] [address] [facility] [id number] [address] [place] [address] 08 Jun, 2018 Diabetes E11.9 ; Other chron ic pain G89.29 and Anxiety disorder, unspecified F41.9 [place] [address] [id number] [address] [place] [address] 07 Jun, 2018 Hip pain, left M25.552 ; Leg pain, left M79.605 ; Lumbar pain M54.5 and Mood disorder F39 [facility] [address] [facility] [id number] [address] [place] [address] May, Diabetes E11.9 [facility] [address] [facility] [id number] [address] [place] [address] May, [facility] [address] [facility] [id number] [address] [place] [address] May, Other chronic pain G89.29 an d Anxiety disorder, unspecified F41.9 [place] [address] [facility] [id number] [address] [place] [address] May, [facility] [address] [place] [id number] [address] [place] [address] May, [facility] [address] [facility] [id number] [address] [place] [address] May, Tinnitus of right ear H93.11 [place] [address] [place] [id number] [address] [place] [address] May, Diabetes E11.9 ; Tinnitus of both ears H93.13 ; Contracture, left hand M24.542 and Family history of rheumatic joint disease Z82.69 [facility] [address] [facility] [id number] [address] [place] [address] Apr, [facility] [address] [id number] [address] [place] [address] Apr, [facility] [address] [id number] [address] [place] [address] Apr, Tinnitus of right ear H93.11 and Hypertension I10 [facility] [address] [id number] [address] [place] [address] Apr, Other chronic pain G89.29 ; Daytime somnolence R40.0 and Anxiety disorder, unspecified F41.9 [facility] [address] [id number] [address] [place] [address] Apr, [facility] [address] [id number] [address] [place] [address] Apr, [facility] [address] [id number] [address] [place] [address] Mar, Tinnitus of right ear H93.11 [facility] [address] [id number] [address] [place] [address] Mar, [facility] [address] [id number] [address] [place] [address] Mar, Anxiety disorder, unspecifie d F41.9 ; Other chronic pain G89.29 and Daytime somnolence R40.0 [facility] [address] [id number] [address] [place] [address] Mar, Irritable bowel syndrome wit h both constipation and diarrhea K58.2 [facility] [address] [id number] [address] [place] [address] Mar, [facility] [address] [id number] [address] [place] [address] Mar, Hypertension I10 [facility] [address] [id number] [address] [place] [address] 14 Mar, 2018 [facility] [address] [facility] [id number] [address] [place] [address] Mar, [facility] [address] [place] [id number] [address] [place] [address] Mar, [facility] [address] [facility] [id number] [address] [place] [address] Mar, Diabetes E11.9 [facility] [address] [facility] [id number] [address] [place] [address] Mar, [facility] [address] [facility] [id number] [address] [place] [address] Feb, Daytime somnolence R40.0 and Anxiety disorder, unspecified F41.9 [facility] [address] [facility] [id number] [address] [place] [address] Feb, [facility] [address] [place] [id number] [address] [place] [address] Feb, [facility] [address] [place] [id number] [address] [place] [address] Feb, Tremors of nervous system R2 5.1 and Acute swimmer''s ear of right side H60.331 [facility] [address] [place] [id number] [address] [place] [address] Feb, Cerebrovascular accident (CV A) due to occlusion of right cerebellar artery I63.541 and Hypertension I10 [facility] [address] [place] [id number] [address] [place] [address] Feb, [facility] [address] [facility] [id number] [address] [place] [address] Feb, Cerebrovascular accident (CV A) due to occlusion of right cerebellar artery I63.541 [facility] [id number] [place] [id number] Feb, Hyponatremia E87.1 [facility] [address] [place] [id number] [address] [place] [address] Feb, [facility] [address] [address] Feb, Daytime somnolence R40.0 [place] [address] [address] Feb, [facility] [address] [place] [id number] [place] [address] 28 Jan, 2018 [place] [address] [id number] Jan, [place] [address] [place] [id number] [place] [address] Jan, Chronic obstructive pulmonar y disease, unspecified J44.9 and Anxiety disorder, unspecified F41.9 [place] [address] [address] Jan, Hypertension I10 ; Fibromyal medhat M79.7 and Lumbago with sciatica, left side M54.42 [place] [address] [address] Jan, [place] [address] [address] 20 Jan, 2018 Cerebrovascular accident (CV A) due to occlusion of right cerebellar artery I63.541 [place] [address] [address] 19 Jan, 2018 [place] [address] [address] 13 Jan, 2018 Arthritis M19.90 [place] [address] [address] 07 Jan, 2018 [place] [address] [id number] 04 Jan, 2018 Abnormal mammogram of right breast R92.8 [place] [address] [place] [id number] [address] [place] [address] Dec, Daytime somnolence R40.0 and Right otitis media with effusion H65.91 [facility] [address] [id number] [address] [place] [address] Dec, [facility] [address] [id number] [address] [place] [address] Dec, Cerebrovascular accident (CV A) due to occlusion of right cerebellar artery I63.541 [facility] [address] [id number] [address] [place] [address] Dec, [facility] [address] [id number] [address] [place] [address] Dec, [facility] [address] [facility] [id number] [address] [place] [address] Nov, Bipolar 1 disorder, depresse d, partial remission F31.75 and Panic disorder with agoraphobia F40.01 [facility] [address] [facility] [id number] [address] [place] [address] Nov, Panlobular emphysema J43.1 [facility] [address] [facility] [id number] [address] [place] [address] Nov, Cerebrovascular accident (CV A) due to occlusion of right cerebellar artery I63.541 and Acute non-recurrent maxillary sinusitis J01.00 [place] [address] [facility] [id number] [address] [place] [address] Nov, Panlobular emphysema J43.1 [facility] [address] [id number] [address] [place] [address] Nov, [facility] [address] [id number] [address] [place] [address] Nov, [facility] [address] [facility] [id number] [address] [place] [address] Nov, [facility] [address] [facility] [id number] [address] [place] [address] Nov, [facility] [address] [facility] [id number] [address] [place] [address] Nov, [facility] [address] [id number] [address] [place] [address] Nov, [facility] [address] [id number] [address] [place] [address] Nov, [facility] [address] [id number] [address] [place] [address] Nov, Mild persistent asthma witho ut complication J45.30 and Irritable bowel syndrome with both constipation and diarrhea K58.2 [facility] [address] [id number] [address] [place] [address] Nov, [facility] [address] [id number] [address] [place] [address] Oct, [facility] [address] [facility] [id number] [address] [place] [address] Oct, [facility] [address] [id number] [address] [place] [address] Oct, Type 2 diabetes mellitus wit h diabetic neuropathy, unspecified whether snf insulin use E11.40 ; Diabetes E11.9 ; Slow transit constipation K59.01 ; Edema of both legs R60.0 and Dysfunction of right eustachian tube H69.81 [facility] [address] [facility] [id number] [address] [place] [address] Oct, Frequent headaches R51 [facility] [address] [id number] [address] [place] [address] Oct, [facility] [address] [id number] [address] [place] [address] Oct, [facility] [address] [facility] [id number] [address] [place] [address] Oct, [facility] [address] [facility] [id number] [address] [place] [address] Oct, [facility] [address] [facility] [id number] [address] [place] [address] Oct, [facility] [address] [facility] [id number] [address] [place] [address] Oct, [facility] [address] [facility] [id number] [address] [place] [address] Oct, [facility] [address] [facility] [id number] [address] [place] [address] Oct, [facility] [address] [facility] [id number] [address] [place] [address] September, Frequent headaches R51 [facility] [address] [facility] [id number] [address] [place] [address] September, Bilateral otitis media with effusion H65.93 ; Dizziness R42 and Essential tremor G25.0 [facility] [address] [facility] [id number] [address] [place] [address] September, Chronic obstructive pulmonar y disease, unspecified COPD type J44.9 [facility] [address] [facility] [id number] [address] [place] [address] September, Chronic obstructive pulmonar y disease, unspecified COPD type J44.9 [facility] [address] [facility] [id number] [address] [place] [address] September, Migraine without aura and wi thout status migrainosus, not intractable G43.009 [facility] [address] [facility] [id number] [address] [place] [address] September, [facility] [address] [facility] [id number] [address] [place] [address] September, [facility] [address] [facility] [id number] [address] [place] [address] September, [facility] [address] [facility] [id number] [address] [place] [address] September, Frequent headaches R51 [facility] [address] [facility] [id number] [address] [place] [address] Aug, [facility] [address] [facility] [id number] [address] [place] [address] Aug, Breast mass, right N63.10 [facility] [address] [facility] [id number] [address] [place] [id number] Aug, Breast lump N63.0 [facility] [address] [facility] [id number] [address] [place] [id number] Aug, [facility] [address] [facility] [id number] [address] [place] [phone] Aug, Bipolar affective disorder, remission status unspecified F31.9 and Diabetes E11.9 [facility] [address] [facility] [id number] [address] [place] [id number] Aug, Diabetes E11.9 ; Schizoaffec tive disorder, bipolar type F25.0 ; Pharyngitis due to other organism J02.8 ; Panlobular emphysema J43.1 and Irritable bowel syndrome with both constipation and diarrhea K58.2 [place] [address] [facility] [id number] [address] [place] [id number] Aug, Abnormal mammogram R92.8 [facility] [address] [facility] [id number] [address] [place] [phone] Aug, [facility] [address] [place] [id number] [address] [place] [phone] Aug, Bipolar 1 disorder, depresse d, moderate F31.32 ; Panic disorder with agoraphobia F40.01 and Chronic post-traumatic stress disorder (PTSD) F43.12 [facility] [address] [facility] [id number] [address] [place] [id number] Aug, [facility] [address] [facility] [id number] [address] [place] [address] Aug, [facility] [address] [place] [id number] [address] [place] [id number] Aug, [facility] [address] [facility] [id number] [address] [place] [address] Jul, [facility] [address] [facility] [id number] [address] [place] [address] 20 Jul, 2017 Mild persistent asthma witho ut complication J45.30 [facility] [address] [id number] [address] [place] [id number] 19 Jul, 2017 Mild persistent asthma witho ut complication J45.30 [facility] [address] [id number] [address] [place] [id number] 15 Jul, 2017 Bipolar affective disorder, remission status unspecified F31.9 ; Diabetes E11.9 and Irritable bowel syndrome with constipation K58.1 [facility] [address] [facility] [id number] [address] [place] [address] 13 Jul, 2017 [facility] [address] [facility] [id number] [address] [place] [address] Jul, [facility] [address] [facility] [id number] [address] [place] [phone] 08 Jul, 2017 Frequent headaches R51 [facility] [address] [facility] [id number] [address] [place] [id number] 07 Jul, 2017 [facility] [address] [facility] [id number] [address] [place] [address] Jul, [facility] [address] [facility] [id number] [address] [place] [address] Jul, [facility] [address] [facility] [id number] [address] [place] [address] Jul, Frequent headaches R51 ; Fib rocystic disease of left breast N60.12 ; Fibrocystic disease of right breast N60.11 and Diabetes E11.9 [facility] [address] [facility] [id number] [address] [place] [id number] 02 Jul, 2017 [facility] [address] [facility] [id number] [address] [place] [address] Jul, [facility] [address] [facility] [id number] [address] [place] [id number] 21 Jun, 2017 Exudative tonsillitis J03.90 [facility] [address] [facility] [id number] [address] [place] [id number] 20 Jun, 2017 [facility] [address] [facility] [id number] [address] [place] [id number] 19 Jun, 2017 [facility] [address] [facility] [id number] [place] [phone] 15 Jun, 2017 Mild persistent asthma witho ut complication J45.30 ; Chronic obstructive pulmonary disease, unspecified COPD type J44.9 and Exudative tonsillitis J03.90 [facility] [address] [facility] [id number] [address] [place] [id number] 13 Jun, 2017 Encounter for immunization Z 23 [facility] [address] [facility] [id number] [address] [place] [id number] 12 Jun, 2017 [facility] [address] [facility] [id number] [address] [place] [phone] Jun, [facility] [address] [place] [id number] [address] [place] [id number] 09 Jun, 2017 [facility] [address] [facility] [id number] [address] [place] [phone] 06 Jun, 2017 Tonsillitis J03.90 [facility] [address] [facility] [id number] [address] [place] [id number] 05 Jun, 2017 [facility] [address] [facility] [id number] [address] [place] [id number] Jun, Acute non-recurrent maxillar y sinusitis J01.00 [facility] [address] [facility] [id number] [address] [place] [address] Jun, [facility] [address] [place] [id number] [address] [place] [id number] May, [facility] [address] [facility] [id number] [address] [place] [address] May, [facility] [address] [facility] [id number] [address] [place] [address] May, GERD (gastroesophageal reflu x disease) K21.9 [facility] [address] [facility] [id number] [address] [place] [id number] May, Migraine without aura and wi thout status migrainosus, not intractable G43.009 [facility] [address] [facility] [id number] [address] [place] [address] May, [facility] [address] [facility] [id number] [address] [place] [address] May, [facility] [address] [place] [id number] [address] [place] [address] May, Panlobular emphysema J43.1 a nd Acute non-recurrent maxillary sinusitis J01.00 [facility] [address] [place] [id number] [address] [place] [address] May, Bipolar 1 disorder, depresse d, moderate F31.32 ; Panic disorder with agoraphobia F40.01 and Akathisia G25.71 [place] [address] [place] [id number] [address] [place] [address] Apr, [facility] [address] [facility] [id number] [address] [place] [address] Apr, [facility] [address] [facility] [id number] [address] [place] [address] Apr, Acute non-recurrent maxillar y sinusitis J01.00 [facility] [address] [facility] [id number] [address] [place] [address] Apr, Panlobular emphysema J43.1 [facility] [address] [facility] [id number] [address] [place] [address] Apr, [facility] [address] [facility] [id number] [address] [place] [address] Apr, Exudative tonsillitis J03.90 and Sore throat J02.9 [facility] [address] [facility] [id number] [address] [place] [address] 17 Mar, 2017 [facility] [address] [facility] [id number] [address] [place] [address] 15 Mar, 2017 Acute non-recurrent maxillar y sinusitis J01.00 [facility] [address] [facility] [id number] [address] [place] [id number] Mar, [facility] [address] [facility] [id number] [place] [address] Mar, Panlobular emphysema J43.1 a nd Diabetes E11.9 [place] [address] [place] [id number] [address] [place] [address] 06 Mar, 2017 [facility] [address] [facility] [id number] [address] [place] [address] 24 Feb, 2017 Wheezing R06.2 and Acute rec urrent pansinusitis J01.41 [facility] [address] [facility] [id number] [address] [place] [address] Feb, [facility] [address] [facility] [id number] [address] [place] [address] Feb, Acute non-recurrent maxillar y sinusitis J01.00 [facility] [address] [facility] [id number] [address] [place] [address] Feb, Chronic obstructive pulmonar y disease, unspecified J44.9 [facility] [address] [place] [id number] [address] [place] [address] Feb, Hypoxemia R09.02 and Chronic obstructive pulmonary disease, unspecified J44.9 [facility] [address] [place] [id number] [address] [place] [address] Jan, Bipolar 1 disorder, depresse d, moderate F31.32 ; Panic disorder with agoraphobia F40.01 ; Chronic post-traumatic stress disorder (PTSD) F43.12 ; Diabetes E11.9 and Moderate persistent asthma without complication J45.40 [facility] [address] [id number] [address] [place] [id number] 22 Jan, 2017 [facility] [address] [id number] [address] [place] [id number] 19 Jan, 2017 Acute non-recurrent maxillar y sinusitis J01.00 [facility] [address] [id number] [address] [place] [id number] 18 Jan, 2017 [facility] [address] [id number] [address] [place] [address] 18 Jan, 2017 [facility] [address] [facility] [id number] [address] [place] [address] Jan, Moderate persistent asthma w [facility] complication J45.40 and Hypoxemia R09.02 [facility] [address] [id number] [address] [place] [address] Jan, Moderate persistent asthma w [facility] [place] complication J45.40 and Hypoxemia R09.02 [facility] [address] [id number] [address] [place] [address] Jan, [facility] [address] [facility] [id number] [address] [place] [address] Dec, Acute non-recurrent maxillar y sinusitis J01.00 [facility] [address] [id number] [address] [place] [id number] Dec, Chronic obstructive pulmonar y disease, unspecified J44.9 [facility] [address] [facility] [id number] [address] [place] [address] Dec, [facility] [address] [facility] [id number] [address] [place] [address] Dec, Mild persistent asthma witho ut complication J45.30 and Other chronic pain G89.29 [facility] [address] [id number] [address] [place] [address] Nov, [facility] [address] [id number] [address] [place] [address] Nov, Acute non-recurrent maxillar y sinusitis J01.00 [facility] [address] [facility] [id number] [address] [place] [address] Nov, [facility] [address] [id number] [address] [place] [id number] Nov, [facility] [address] [facility] [id number] [address] [place] [id number] Oct, [facility] [address] [facility] [id number] [address] [place] [id number] Oct, Bipolar 1 disorder, depresse d, partial remission F31.75 ; Panic disorder with agoraphobia F40.01 and Chronic post-traumatic stress disorder (PTSD) F43.12 [facility] [address] [id number] [address] [place] [address] Oct, Acute non-recurrent maxillar y sinusitis J01.00 [facility] [address] [facility] [id number] [address] [place] [address] Oct, [facility] [address] [facility] [id number] [address] [place] [address] Oct, Diabetes E11.9 [facility] [address] [facility] [id number] [address] [place] [address] September, Diabetes E11.9 [facility] [address] [id number] [address] [place] [address] September, Diabetes E11.9 and Sinus tac hycardia R00.0 [facility] [address] [id number] [address] [place] [address] September, [facility] [address] [facility] [id number] [address] [place] [address] September, [facility] [address] [id number] [address] [place] [address] Aug, Diabetes E11.9 and Lumbago w ith sciatica, right side M54.41 [facility] [address] [facility] [id number] [address] [place] [address] Aug, [facility] [address] [facility] [id number] [address] [place] [address] Jul, Bipolar 1 disorder, depresse d, moderate F31.32 ; Panic disorder with agoraphobia F40.01 and Chronic post-traumatic stress disorder (PTSD) F43.12 [facility] [address] [facility] [id number] [address] [place] [address] Jul, Sore throat J02.9 [facility] [address] [facility] [id number] [address] [place] [address] Jul, [facility] [address] [facility] [id number] [address] [place] [address] Jul, [facility] [address] [facility] [id number] [address] [place] [address] Jul, [facility] [address] [facility] [id number] [address] [place] [address] Jul, [facility] [address] [facility] [id number] [address] [place] [id number] Jul, Sore throat J02.9 and Pharyn gitis, unspecified etiology J02.9 [facility] [address] [id number] [address] [place] [id number] Jun, [facility] [address] [facility] [id number] [address] [place] [address] Jun, Diabetes E11.9 [facility] [address] [facility] [id number] [address] [place] [address] Jun, [facility] [address] [facility] [id number] [address] [place] [address] Jun, [facility] [address] [id number] [address] [place] [id number] Jun, [facility] [address] [id number] [address] [place] [address] Jun, [facility] [address] [facility] [id number] [address] [place] [address] Jun, [facility] [address] [facility] [id number] [address] [place] [address] Jun, [facility] [address] [facility] [id number] [address] [place] [address] Jun, [facility] [address] [facility] [id number] [address] [place] [id number] Jun, [facility] [address] [facility] [id number] [address] [place] [address] May, Diabetes E11.9 ; Other chron ic pain G89.29 ; Acute recurrent maxillary sinusitis J01.01 ; Bipolar I disorder with depression F31.9 and Anxiety disorder, unspecified F41.9 [facility] [address] [facility] [id number] [address] [place] [address] May, [facility] [address] [facility] [id number] [address] [place] [address] May, Diabetes E11.9 ; Bipolar I d isorder with depression F31.9 ; Anxiety disorder, unspecified F41.9 ; Other chronic pain G89.29 and Acute recurrent maxillary sinusitis J01.01 [facility] [address] [facility] [id number] [address] [place] [address] May, [facility] [address] [facility] [id number] [address] [place] [address] May, Attention deficit hyperactiv ity disorder (ADHD), predominantly inattentive type F90.0 [facility] [address] [facility] [id number] [address] [place] [address] May, [place] [address] [id number] [address] [place] [id number] Apr, Attention deficit hyperactiv ity disorder (ADHD), predominantly inattentive type F90.0 and Non-seasonal allergic rhinitis due to other allergic trigger J30.89 [place] [address] [id number] [address] [place] [address] Apr, Bipolar 1 disorder, depresse d, moderate F31.32 ; Panic disorder with agoraphobia F40.01 and Chronic post-traumatic stress disorder (PTSD) F43.12 [place] [address] [id number] [address] [place] [address] Apr, Dental examination Z01.20 [place] [address] [id number] [address] [place] [address] Mar, [place] [address] [id number] [address] [place] [address] Mar, [place] [address] [id number] [address] [place] [id number] 17 Mar, 2016 Bipolar I disorder with depr ession F31.9 and Anxiety disorder, unspecified F41.9 [place] [address] [id number] [address] [place] [address] 08 Mar, 2016 Panic disorder with agorapho syd F40.01 ; Bipolar 1 disorder, depressed, moderate F31.32 and Chronic post-traumatic stress disorder (PTSD) F43.12 [place] [address] [id number] [address] [place] [address] Mar, [place] [address] [id number] [address] [place] [address] Mar, Dental caries K02.9 [place] [address] [id number] [address] [place] [address] 24 Feb, 2016 Lumbago with sciatica, left side M54.42 ; Lumbago with sciatica, right side M54.41 and Other chronic pain G89.29 [facility] [address] [id number] [address] [place] [address] 17 Feb, 2016 [facility] [address] [facility] [id number] [address] [place] [phone] 14 Feb, 2016 [facility] [address] [facility] [id number] [address] [place] [address] 13 Feb, 2016 Bipolar I disorder with depr ession F31.9 ; PTSD (post-traumatic stress disorder) F43.10 and Mood disorder F39 [facility] [address] [facility] [id number] [address] [place] [address] Feb, [facility] [address] [facility] [id number] [address] [place] [id number] 11 Feb, 2016 Dental examination Z01.20 [facility] [address] [facility] [id number] [address] [place] [id number] 07 Feb, 2016 [facility] [address] [facility] [id number] [address] [place] [id number] 03 Feb, 2016 Acute bronchitis, unspecifie d organism J20.9 [facility] [address] [facility] [id number] [address] [place] [address] 26 Jan, 2016 Mood disorder F39 ; Migraine without aura and without status migrainosus, not intractable G43.009 ; Irritable bowel syndrome, unspecified type K58.9 ; Diabetes E11.9 and Encounter for immunization Z23 [facility] [address] [facility] [id number] [address] [place] [id number] 15 Jan, 2016 [facility] [address] [facility] [id number] [address] [place] [id number] 06 Jan, 2016 [facility] [address] [facility] [id number] [address] [place] [address] Jan, [facility] [address] [facility] [id number] [address] [place] [address] Jan, [facility] [address] [place] [id number] [address] [place] [address] Jan, [facility] [address] [id number] [address] [place] [address] Dec, Bipolar I disorder with depr ession F31.9 ; PTSD (post-traumatic stress disorder) F43.10 and Panic disorder with agoraphobia F40.01 [facility] [address] [facility] [id number] [address] [place] [address] Dec, Chronic obstructive pulmonar y disease, unspecified COPD type J44.9 ; Tremor R25.1 and Anxiety F41.9 [facility] [address] [id number] [address] [place] [address] Dec, [facility] [address] [place] [id number] [address] [place] [id number] Nov, Tremors of nervous system R2 5.1 and Cramping of feet R25.2 [facility] [address] [place] [id number] [address] [place] [address] Nov, [facility] [address] [facility] [id number] [address] [place] [address] Nov, [facility] [address] [place] [id number] [address] [place] [address] Oct, Chronic obstructive pulmonar y disease, unspecified J44.9 [facility] [address] [place] [id number] [address] [place] [address] Oct, [facility] [address] [facility] [id number] [address] [place] [id number] Oct, Tremor R25.1 [facility] [address] [facility] [id number] [address] [place] [address] Oct, Bipolar I disorder with depr ession F31.9 ; Diabetes E11.9 ; PTSD (post-traumatic stress disorder) F43.10 and Panic disorder with agoraphobia F40.01 [facility] [address] [place] [id number] [address] [place] [address] Oct, Mood disorder F39 [facility] [address] [facility] [id number] [address] [place] [address] September, [place] [address] [facility] [id number] [address] [place] [address] September, Diabetes E11.9 ; Bipolar I d isorder with depression F31.9 ; PTSD (post-traumatic stress disorder) F43.10 and Panic disorder with agoraphobia F40.01 [place] [address] [facility] [id number] [address] [place] [address] September, Mood disorder F39 ; Schizoaf fective disorder, unspecified type F25.9 ; Arthritis M19.90 ; Tremor R25.1 ; Acute non-recurrent frontal sinusitis J01.10 and Blood in stool K92.1 [place] [address] [facility] [id number] [address] [place] [address] September, [place] [address] [facility] [id number] [address] [place] [address] September, Chronic obstructive pulmonar y disease, unspecified J44.9 [place] [address] [facility] [id number] [address] [place] [address] September, Diabetes E11.9 [place] [address] [facility] [id number] [address] [place] [phone] Aug, Other bipolar disorder F31.8 9 and Anxiety disorder, unspecified F41.9 [place] [id number] [facility] [id number] [address] [place] [id number] Aug, [place] [address] [address] [facility] [id number] [address] [place] [phone] Aug, Diabetes E11.9 [place] [address] [address] [facility] [id number] [address] [place] [id number] 18 Aug, 2015 [place] [address] [address] [facility] [id number] [address] [place] [phone] 14 Apr, 2016 Diabetes E11.9 ; Fatigue R53 .83 and Dizziness R42 [facility] [address] [id number] [address] [place] [phone] 13 Aug, 2015 Other bipolar disorder F31.8 9 [facility] [address] [id number] [address] [place] [phone] 07 Aug, 2015 Generalized anxiety disorder F41.1 [facility] [address] [id number] [address] [place] [phone] 07 Aug, 2015 Other bipolar disorder F31.8 9 and Anxiety disorder, unspecified F41.9 [facility] [address] [id number] [address] [place] [id number] Aug, [facility] [address] [id number] [address] [place] [phone] Jul, [facility] [address] [id number] [address] [place] [id number] 24 Jul, 2015 [facility] [address] [id number] [address] [place] [phone] Jul, Bronchitis J40 [facility] [address] [id number] [address] [place] [id number] 22 Jul, 2015 Anxiety disorder F41.9 [facility] [address] [id number] [address] [place] [phone] Jul, Other bipolar disorder F31.8 9 and Anxiety disorder, unspecified F41.9 [facility] [address] [id number] [address] [place] [id number] 18 Jul, 2015 Other bipolar disorder F31.8 9 and Fibromyalgia M79.7 [facility] [address] [id number] [address] [place] [address] [id number] 10 Jul, 2015 [facility] [address] [id number] [address] [place] [id number] 09 Jul, 2015 [facility] [address] [id number] [address] [place] [address] Jul, [facility] [address] [id number] [address] [place] [address] Jul, Other bipolar disorder F31.8 9 and Anxiety disorder, unspecified F41.9 [facility] [address] [id number] [address] [place] [address] Jun, GERD (gastroesophageal reflu x disease) K21.9 [facility] [address] [id number] Jun, [facility] [address] [address] May, [facility] [address] [address] May, Diabetes E11.9 ; Back pain M 54.9 ; GERD (gastroesophageal reflux disease) K21.9 ; Hypertension I10 and Peripheral neuropathy G62.9 [facility] [address] [address] Mar, [facility] [address] [id number] Mar, [facility] [address] [address] Mar, Acute sinusitis J01.90 and O titis media, left H66.92 [facility] [address] [id number] [address] [place] [address] Feb, [facility] [address] [id number] Feb, [facility] [address] [id number] Feb, [facility] [address] [address] 13 Feb, 2015 [facility] [address] [id number] Jan, [facility] [address] [facility] [id number] [address] [place] [address] Jan, Diabetes 250.00 and Back higinio n 724.5 [facility] [address] [facility] [id number] [address] [place] [address] Jan, [facility] [address] [facility] [id number] [address] [place] [address] Dec, Diabetes 250.00 ; Benign ess ential hypertension 401.1 and Allergic rhinitis 477.9 [facility] [address] [facility] [id number] [address] [place] [address] Dec, [facility] [address] [facility] [id number] [address] [place] [id number] Dec, [facility] [address] [id number] [address] [place] [address] Dec, Psychosis 298.9 [facility] [address] [id number] [address] [place] [address] Dec, Medication side effect 995.2 0 and Generalized anxiety disorder 300.02 [facility] [address] [id number] [address] [place] [address] Dec, Acquired cognitive dysfuncti on 294.9 [facility] [address] [id number] [address] [place] [address] Dec, [facility] [address] [id number] [address] [place] [address] Dec, Unspecified myalgia and myos itis 729.1 and Generalized anxiety disorder 300.02 [facility] [address] [facility] [id number] [address] [place] [phone] Nov, [facility] [address] [id number] [address] [place] [phone] Nov, [facility] [address] [id number] [address] [place] [address] Nov, [facility] [address] [id number] [address] [place] [address] Nov, Upper respiratory infection 465.9 and Chronic airway obstruction, not elsewhere classified 496 [facility] [address] [id number] [address] [place] [address] Nov, Hyponatremia 276.1 [facility] [address] [id number] [address] [place] [address] Oct, [facility] [address] [id number] [address] [place] [address] Oct, [facility] [address] [id number] [address] [place] [address] Oct, [facility] [address] [id number] [address] [place] [phone] Oct, [facility] [address] [facility] [id number] [address] [place] [address] Oct, Hyponatremia 276.1 [facility] [address] [id number] [address] [place] [phone] Oct, [facility] [address] [id number] [address] [place] [address] Oct, [facility] [address] [facility] [id number] [address] [place] [address] Oct, Generalized anxiety disorder 300.02 [facility] [address] [id number] [address] [place] [address] Oct, Generalized anxiety disorder 300.02 and Diabetes 250.00 [facility] [address] [id number] [address] [place] [address] Aug, [facility] [address] [facility] [id number] [address] [place] [address] Aug, [facility] [address] [facility] [id number] [address] [place] [address] Jul, [facility] [address] [id number] [address] [place] [address], [place] [address] Jul, [facility] [address] [id number] [address] [place] [address], [place] [address] Jun, [facility] [address] [id number] [address] [place] [address], [place] [address] Jun, [facility] [address] [id number] [address] [place] [address], [place] [address] Jun, [facility] [address] [id number] [address] [place] [address], [place] [address] Jun, [facility] [address] [id number] [address] [place] [address], [place] [address] Jun, [facility] [address] [id number] [address] [place] [address], [place] [address] May, [facility] [address] [id number] [address] [place] [address], [place] [address] May, [facility] [address] [id number] [address] [place] [address], [place] [address] Apr, [facility] [address] [id number] [address] [place] [address], [place] [address] Apr, [facility] [address] [id number] [address] [place] [address], [place] [address] Apr, [facility] [address] [id number] [address] [place] [address], [place] [address] Apr, [facility] [address] [id number] [address] [place] [address], [place] [address] Apr, [facility] [address] [id number] [address] [place] [address], [place] [address] Apr, [facility] [address] [id number] [address] [place] [address], [place] [address] Apr, [facility] [address] [id number] [address] [place] [address], [place] [address] Apr, [facility] [address] [id number] [address] [place] [address], [place] [address] Feb, [facility] [address] [id number] [address] [place] [address], [place] [address] Feb, [facility] [address] [id number] [address] [place] [address], [place] [address] Jan, [facility] [address] [id number] [address] [place] [address], [place] [address] Jan, [facility] [address] [id number] [address] [place] [address], [place] [address] Dec, [facility] [address] [id number] [address] [place] [address], [place] [address] Dec, [facility] [address] [id number] [address] [place] [address], [place] [address] Dec, [facility] [address] [id number] [address] [place] [address], [place] [address] Nov, [facility] [address] [id number] [address] [place] [address], [place] [id number] Nov, [facility] [address] [id number] [address] [place] [address], [place] [address] Nov, [facility] [address] [id number] [address] [place] [address], [place] [address] Oct, [facility] [address] [id number] [address] [place] [address], [place] [address] Oct, [facility] [address] [id number] [address] [place] [address], [place] [address] Oct, [facility] [address] [id number] [address] [place] [address], [place] [address] September, [facility] [address] [id number] [address] [place] [address], [place] [address] September, [facility] [address] [id number] [address] [place] [address], [place] [address] September, [facility] [address] [id number] [address] [place] [address], [place] [id number] 25 Aug, 2011 [facility] [address] [id number] [address] [place] [address], [place] [address] 20 Aug, 2011 [facility] [address] [id number] [address] [place] [address], [place] [address] 19 Aug, 2011 [facility] [address] [id number] [address] [place] [address], [place] [id number] 16 Aug, 2011 [facility] [address] [id number] [address] [place] [address], [place] [address] Jul, [facility] [address] [id number] [address] [place] [address], [place] [address] 21 Jun, 2011 [facility] [address] [id number] [address] [place] [address], [place] [address] 14 Jun, 2011 [facility] [address] [id number] [address] [place] [address], [place] [address] 13 Jun, 2011 [facility] [address] [id number] [address] [place] [address], [place] [id number] 07 Jun, 2011 [facility] [address] [id number] [address] [place] [address], [place] [address] 03 Jun, 2011 [facility] [address] [id number] [address] [place] [address], [place] [address] 13 May, [address] [facility] [address] [id number] [address] [place] [address], [place] [address] 10 May, 2011 [facility] [address] [id number] [address] [place] [address], [place] [address] 09 May, [address] [facility] [address] [id number] [address] [place] [address], [place] [id number] 04 May, 2011 [facility] [address] [id number] [address] [place] [address], [place] [address] 20 Apr, 2011 [facility] [address] [id number] [address] [place] [address], [place] [address] 13 Apr, 2011 [facility] [address] [id number] [address] [place] [address], [place] [id number] 05 Apr, 2011 [facility] [address] [id number] [address] [place] [address], [place] [address] Mar, [facility] [address] [id number] [address] [place] [address], [place] [address] Mar, [facility] [address] [id number] [address] [place] [address], [place] [id number] Mar, [facility] [address] [id number] [address] [place] [address], [place] [address] 13 Feb, 2011 [facility] [address] [id number] [address] [place] [address], [place] [address] 13 Feb, 2011 [facility] [address] [id number] [address] [place] [address], [place] [address] 13 Feb, 2011 [facility] [address] [id number] [address] [place] [address], [place] [address] Nov, [facility] [address] [id number] [address] [place] [address], [place] [id number] 16 Sep, 2010 [facility] [address] [id number] [address] [place] [address], [place] [id number] Aug, [facility] [address] [id number] [address] [place] [address], [place] [address] 14 Jul, 2010 [facility] [address] [id number] [address] [place] [address], [place] [address] May, [facility] [address] [id number] [address] [place] [address], [place] [address] 31 Apr, 2010 [facility] [address] [id number] [address] [place] [address], [place] [address] 30 Apr, 2010 [facility] [address] [id number] [address] [place] [id number] 13 Apr, 2010 [facility] [address] [facility] [id number] [address] [place] [id number] Apr, [facility] [address] [facility] [id number] [address] [place] [id number] Apr, IMMUNIZATIONS No Known Immunizations SOCIAL HISTORY Never Assessed REASON FOR VISIT mammo reorder PLAN OF CARE VITAL SIGNS MEDICATIONS Unknown [...]
--- OUTSIDE RECORDS SUMMARY | 2019-07-17 10:39 | XMS REPORT ---
Author Author Sujey GANDHI Organization [facility] Address [address] [place] [address] Care Team Providers Care Sales Operations Assistant Name Role Phone WHIT GANDHI Unavailable PROBLEMS Type Condition ICD9-CM Code [id number] Code Onset Dates Condition S tatus SNOMED Code Problem Bipolar 1 disorder, depressed, partial remission F 31.75 Active 25525227 Problem Mild persistent asthma without complication J45.30 Active 331109528 Problem Acute non-recurrent maxillary sinusitis J01.00 Active 17737982 Problem Panlobular emphysema J43.1 Active 6878079 Problem Moderate persistent asthma without complication J4 5.40 Active 227345084 Problem Migraine without aura and without status migrain osus, not intractable G43.009 Active 039015783 Problem Diabetes E11.9 Active 74990256 Problem Akathisia G25.71 Active 490840306 Problem GERD (gastroesophageal reflux disease) K21.9 Active 385017483 Problem Contracture, left hand M24.542 Active 224707552020950 Problem Bipolar affective disorder, remission status unspecified F31.9 Active 98244002 Problem Tinnitus of both ears H93.13 Active 2944256704560 Problem Chronic post-traumatic stress disorder (PTSD) F43. 12 Active 892707072 Problem Bipolar I disorder with depression F31.9 Active 28515745 Problem Attention deficit hyperactiv ity disorder (ADHD), predominantly inattentive type F90.0 Active 09719799 Problem Irritable bowel syndrome with both constipation and diarrh ea K58.2 Active 31649145 Problem Irritable bowel syndrome with constipation K58.1 Active 879593302 Problem Essential tremor G25.0 Active 609 364861 Problem Chronic obstructive pulmonary disease, unspecified J44.9 Active 80498125 Problem Schizoaffective disorder, bipolar type F25.0 Active 31710721 Problem Panic disorder with agoraphobia F40.01 Active 01801066 Problem Daytime somnolence R40.0 Active 1 16594435343 Problem Lumbago with sciatica, right side M54.41 Active 278621684 Problem Slow transit constipation K59.01 Acti ve 88699853 Problem Lumbago with sciatica, left side M54.42 Active 855931682 Problem Tinnitus of right ear H93.11 Active 40706970 Problem Bipolar 1 disorder, depressed, moderate F31.32 Active 80346771 Problem Abnormal mammogram of right breast R92.8 Active 071996151 Problem Other chronic pain G89.29 Active 8 0304514 Problem Mood disorder F39 Active 039116 05 Problem Diffuse cystic mastopathy of left breast N60.12 Active 50317642 Problem Diffuse cystic mastopathy of right breast N60.11 Active 90853771 Problem 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 41.114 Active 167199130 Problem Fibrocystic disease of right breast N60.11 Active 52081668 Problem Back pain M54.9 Active 219444075 Problem Daytime sleepiness R40.0 Active 1 25089423467 Problem Fibrocystic disease of left breast N60.12 Active 81690802 Problem Hypertension I10 Active 7861410 3 Problem Other bipolar disorder F31.89 Active 97371192 Problem Arthritis M19.90 Active 6192591 Problem Anxiety disorder, unspecified F41.9 Active 660414645 Problem Hemiplegia and hemiparesis f ollowing unspecified cerebrovascular disease affecting right dominant side I69.951 Active 845559002 Problem Rheumatoid arthritis of left hip without organ or system involvement with positive rheumatoid factor M05.752 Active 246568492 Problem Fibromyalgia M79.7 Active 3785453 7 Problem Rheumatoid arthritis with rh eumatoid factor of right hip without organ or systems involvement M05.751 Active 6 Problem Type 2 diabetes mellitus wit h diabetic neuropathy, without long-term current use of insulin E11.40 Active 28266 006 ALLERGIES No Information ENCOUNTERS Encounter Location Date Diagnosis [facility] [address] [facility] [id number] [address] [place] [phone] Feb, [facility] [address] [facility] [id number] [address] [place] [id number] 23 Jan, 2019 Hypertension I10 [facility] [address] [facility] [id number] [address] [place] [id number] 16 Jan, 2019 Daytime somnolence R40.0 [facility] [address] [id number] [address] [place] [id number] Jan, Open wound of left elbow, in itial encounter S51.002A and 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41.114 [facility] [address] [id number] [address] [place] [id number] Jan, Diabetes E11.9 and Other chr onic pain G89.29 [facility] [address] [id number] [address] [place] [id number] Jan, [facility] [address] [id number] [address] [place] [id number] Jan, Daytime sleepiness R40.0 [facility] [address] [id number] [address] [place] [id number] Jan, [facility] [address] [id number] [address] [place] [id number] Jan, [facility] [address] [id number] [address] [place] [id number] Jan, [facility] [address] [id number] [address] [place] [id number] Dec, Diabetes E11.9 and Other chr onic pain G89.29 [facility] [address] [id number] [address] [place] [phone] Dec, [facility] [address] [id number] [address] [place] [id number] Dec, [facility] [address] [id number] [address] [place] [id number] Dec, Abdominal spasms R10.9 ; Rhe umatoid arthritis with rheumatoid factor of right hip without organ or systems involvement M05.751 ; Rheumatoid arthritis of left hip without organ or system involvement with positive rheumatoid factor M05.752 and Type 2 diabetes mellitus with diabetic neuropathy, without long-term current use of insulin E11.40 [facility] [address] [id number] [address] [place] [id number] Dec, Diabetes E11.9 and Other chr onic pain G89.29 [facility] [address] [id number] [address] [place] [id number] Nov, [facility] [address] [id number] [address] [place] [id number] Nov, Hip pain, left M25.552 [facility] [address] [id number] [address] [place] [id number] Nov, [facility] [address] [id number] [address] [place] [id number] Nov, [facility] [address] [id number] [address] [place] [id number] Nov, Hemiplegia and hemiparesis f ollowing unspecified cerebrovascular disease affecting right dominant side I69.951 ; Diabetes E11.9 ; Daytime somnolence R40.0 and Other chronic pain G89.29 [facility] [address] [id number] [address] [place] [id number] Nov, [facility] [address] [id number] [address] [place] [id number] Nov, [facility] [address] [id number] [address] [place] [id number] Nov, Hemiplegia and hemiparesis f ollowing unspecified cerebrovascular disease affecting right dominant side I69.951 ; Lower leg edema R60.0 and Plantar fasciitis, bilateral M72.2 [facility] [address] [id number] [address] [place] [id number] Oct, [facility] [address] [id number] [address] [place] [id number] Oct, Daytime somnolence R40.0 ; D iabetes E11.9 and Other chronic pain G89.29 [facility] [address] [id number] [address] [place] [id number] Oct, Edema, lower extremity R60.0 and Hip pain, left M25.552 [facility] [address] [id number] [address] [place] [id number] Oct, [facility] [address] [id number] [address] [place] [id number] September, [facility] [address] [id number] [address] [place] [id number] September, Diabetes E11.9 and Other chr onic pain G89.29 [facility] [address] [id number] [address] [place] [phone] September, Diabetes E11.9 and Other chr onic pain G89.29 [facility] [address] [id number] [address] [place] [id number] September, [facility] [address] [id number] [address] [place] [id number] Aug, [facility] [address] [id number] [address] [place] [id number] Aug, Hypertension I10 [facility] [address] [id number] [address] [place] [phone] Aug, [facility] [address] [id number] [address] [place] [id number] Aug, [facility] [address] [id number] [address] [place] [id number] Aug, Diabetes E11.9 and Edema of both legs R60.0 [facility] [address] [id number] [address] [place] [id number] Aug, Panic disorder with agorapho syd F40.01 ; Other chronic pain G89.29 and Daytime somnolence R40.0 [facility] [address] [id number] [address] [place] [id number] Jul, [facility] [address] [id number] [address] [place] [id number] Jul, [place] [address] [place] [id number] [address] [place] [id number] Jul, Diffuse cystic mastopathy of left breast N60.12 and Diffuse cystic mastopathy of right breast N60.11 [place] [address] [facility] [id number] [address] [place] [id number] Jul, Fibrocystic disease of right breast N60.11 [place] [address] [place] [id number] [address] [place] [id number] 18 Jul, 2018 Fibrocystic disease of right breast N60.11 and Fibrocystic disease of left breast N60.12 [place] [address] [place] [id number] [address] [place] [address] 15 Jul, 2018 Encounter for Medicare annua l wellness exam Z00.00 ; Schizoaffective disorder, bipolar type F25.0 ; Chronic obstructive pulmonary disease, unspecified J44.9 ; Fibromyalgia M79.7 and Acute non-recurrent maxillary sinusitis J01.00 [place] [address] [place] [id number] [address] [place] [id number] 14 Jul, 2018 Daytime somnolence R40.0 [place] [address] [place] [id number] [address] [place] [id number] 14 Jul, 2018 [place] [address] [place] [id number] [address] [place] [id number] 13 Jul, 2018 [place] [address] [place] [id number] [address] [place] [id number] Jul, Panic disorder with agorapho syd F40.01 ; Anxiety disorder, unspecified F41.9 ; Other chronic pain G89.29 and Daytime somnolence R40.0 [place] [address] [place] [id number] [address] [place] [id number] Jul, [place] [address] [place] [id number] [address] [place] [id number] Jun, [place] [address] [id number] [address] [place] [id number] 08 Jun, 2018 Hip pain, left M25.552 ; Leg pain, left M79.605 ; Lumbar pain M54.5 and Mood disorder F39 [place] [id number] [facility] [id number] [address] [place] [id number] 08 Jun, 2018 Diabetes E11.9 ; Other chron ic pain G89.29 and Anxiety disorder, unspecified F41.9 [place] [address] [id number] [address] [place] [id number] 07 Jun, 2018 Hip pain, left M25.552 ; Leg pain, left M79.605 ; Lumbar pain M54.5 and Mood disorder F39 [place] [address] [facility] [id number] [address] [place] [id number] May, Diabetes E11.9 [place] [address] [facility] [id number] [address] [place] [id number] May, [place] [address] [facility] [id number] [address] [place] [id number] May, Other chronic pain G89.29 an d Anxiety disorder, unspecified F41.9 [place] [address] [facility] [id number] [address] [place] [id number] May, [place] [address] [place] [id number] [address] [place] [phone] May, [place] [address] [facility] [id number] [address] [place] [id number] May, Tinnitus of right ear H93.11 [place] [address] [place] [id number] [address] [place] [id number] May, Diabetes E11.9 ; Tinnitus of both ears H93.13 ; Contracture, left hand M24.542 and Family history of rheumatic joint disease Z82.69 [place] [address] [facility] [id number] [address] [place] [id number] Apr, [facility] [address] [id number] [address] [place] [id number] Apr, [facility] [address] [id number] [address] [place] [id number] Apr, Tinnitus of right ear H93.11 and Hypertension I10 [facility] [address] [id number] [address] [place] [id number] Apr, Other chronic pain G89.29 ; Daytime somnolence R40.0 and Anxiety disorder, unspecified F41.9 [facility] [address] [id number] [address] [place] [id number] Apr, [facility] [address] [id number] [address] [place] [id number] Apr, [facility] [address] [id number] [address] [place] [id number] Mar, Tinnitus of right ear H93.11 [facility] [address] [id number] [address] [place] [id number] Mar, [facility] [address] [id number] [address] [place] [id number] Mar, Anxiety disorder, unspecifie d F41.9 ; Other chronic pain G89.29 and Daytime somnolence R40.0 [facility] [address] [id number] [address] [place] [id number] Mar, Irritable bowel syndrome wit h both constipation and diarrhea K58.2 [facility] [address] [id number] [address] [place] [id number] Mar, [facility] [address] [id number] [address] [place] [id number] Mar, Hypertension I10 [facility] [address] [id number] [address] [place] [id number] 14 Mar, 2018 [facility] [address] [facility] [id number] [address] [place] [id number] Mar, [facility] [address] [place] [id number] [address] [place] [id number] Mar, [facility] [address] [facility] [id number] [address] [place] [id number] Mar, Diabetes E11.9 [facility] [address] [facility] [id number] [address] [place] [id number] Mar, [facility] [address] [facility] [id number] [address] [place] [id number] Feb, Daytime somnolence R40.0 and Anxiety disorder, unspecified F41.9 [facility] [address] [facility] [id number] [address] [place] [id number] Feb, [facility] [address] [place] [id number] [address] [place] [id number] Feb, [facility] [address] [place] [id number] [address] [place] [id number] Feb, Tremors of nervous system R2 5.1 and Acute swimmer''s ear of right side H60.331 [facility] [address] [place] [id number] [address] [place] [id number] Feb, Cerebrovascular accident (CV A) due to occlusion of right cerebellar artery I63.541 and Hypertension I10 [facility] [address] [place] [id number] [address] [place] [id number] Feb, [facility] [address] [facility] [id number] [address] [place] [id number] Feb, Cerebrovascular accident (CV A) due to occlusion of right cerebellar artery I63.[address] [facility] [id number] [place] [id number] Feb, Hyponatremia E87.1 [facility] [address] [place] [id number] [address] [place] [id number] Feb, [facility] [address] [address] Feb, Daytime somnolence R40.0 [place] [address] [address] Feb, [facility] [address] [place] [id number] [place] [phone] 28 Jan, 2018 [place] [address] [address] Jan, [place] [address] [place] [id number] [place] [id number] Jan, Chronic obstructive pulmonar y disease, unspecified J44.9 and Anxiety disorder, unspecified F41.9 [place] [address] [address] Jan, Hypertension I10 ; Fibromyal medhat M79.7 and Lumbago with sciatica, left side M54.42 [place] [address] [address] Jan, [place] [address] [id number] 20 Jan, 2018 Cerebrovascular accident (CV A) due to occlusion of right cerebellar artery I63.541 [place] [address] [id number] 19 Jan, 2018 [place] [address] [id number] 13 Jan, 2018 Arthritis M19.90 [place] [address] [id number] 07 Jan, 2018 [place] [address] [address] 04 Jan, 2018 Abnormal mammogram of right breast R92.8 [place] [address] [place] [id number] [address] [place] [id number] Dec, Daytime somnolence R40.0 and Right otitis media with effusion H65.91 [facility] [address] [id number] [address] [place] [id number] Dec, [facility] [address] [id number] [address] [place] [id number] Dec, Cerebrovascular accident (CV A) due to occlusion of right cerebellar artery I63.541 [facility] [address] [id number] [address] [place] [id number] Dec, [facility] [address] [id number] [address] [place] [id number] Dec, [facility] [address] [facility] [id number] [address] [place] [id number] Nov, Bipolar 1 disorder, depresse d, partial remission F31.75 and Panic disorder with agoraphobia F40.01 [place] [address] [facility] [id number] [address] [place] [address] Nov, Panlobular emphysema J43.1 [facility] [address] [facility] [id number] [address] [place] [id number] Nov, Cerebrovascular accident (CV A) due to occlusion of right cerebellar artery I63.541 and Acute non-recurrent maxillary sinusitis J01.00 [place] [address] [facility] [id number] [address] [place] [id number] Nov, Panlobular emphysema J43.1 [facility] [address] [id number] [address] [place] [id number] Nov, [facility] [address] [id number] [address] [place] [id number] Nov, [facility] [address] [facility] [id number] [address] [place] [id number] Nov, [facility] [address] [facility] [id number] [address] [place] [id number] Nov, [facility] [address] [facility] [id number] [address] [place] [id number] Nov, [facility] [address] [id number] [address] [place] [phone] Nov, [facility] [address] [id number] [address] [place] [id number] Nov, [facility] [address] [id number] [address] [place] [id number] Nov, Mild persistent asthma witho ut complication J45.30 and Irritable bowel syndrome with both constipation and diarrhea K58.2 [facility] [address] [id number] [address] [place] [id number] Nov, [facility] [address] [id number] [address] [place] [id number] Oct, [facility] [address] [facility] [id number] [address] [place] [id number] Oct, [facility] [address] [id number] [address] [place] [id number] Oct, Type 2 diabetes mellitus wit h diabetic neuropathy, unspecified whether mcfp insulin use E11.40 ; Diabetes E11.9 ; Slow transit constipation K59.01 ; Edema of both legs R60.0 and Dysfunction of right eustachian tube H69.81 [facility] [address] [facility] [id number] [address] [place] [id number] Oct, Frequent headaches R51 [facility] [address] [id number] [address] [place] [id number] Oct, [facility] [address] [id number] [address] [place] [id number] Oct, [facility] [address] [facility] [id number] [address] [place] [id number] Oct, [facility] [address] [facility] [id number] [address] [place] [id number] Oct, [facility] [address] [facility] [id number] [address] [place] [id number] Oct, [facility] [address] [facility] [id number] [address] [place] [id number] Oct, [facility] [address] [facility] [id number] [address] [place] [id number] Oct, [facility] [address] [facility] [id number] [address] [place] [id number] Oct, [facility] [address] [facility] [id number] [address] [place] [id number] September, Frequent headaches R51 [facility] [address] [facility] [id number] [address] [place] [id number] September, Bilateral otitis media with effusion H65.93 ; Dizziness R42 and Essential tremor G25.0 [facility] [address] [facility] [id number] [address] [place] [id number] September, Chronic obstructive pulmonar y disease, unspecified COPD type J44.9 [facility] [address] [facility] [id number] [address] [place] [id number] September, Chronic obstructive pulmonar y disease, unspecified COPD type J44.9 [facility] [address] [facility] [id number] [address] [place] [id number] September, Migraine without aura and wi thout status migrainosus, not intractable G43.009 [facility] [address] [facility] [id number] [address] [place] [id number] September, [facility] [address] [facility] [id number] [address] [place] [id number] September, [facility] [address] [facility] [id number] [address] [place] [id number] September, [facility] [address] [facility] [id number] [address] [place] [id number] September, Frequent headaches R51 [facility] [address] [facility] [id number] [address] [place] [id number] Aug, [facility] [address] [facility] [id number] [address] [place] [id number] Aug, Breast mass, right N63.10 [facility] [address] [facility] [id number] [address] [place] [id number] Aug, Breast lump N63.0 [facility] [address] [facility] [id number] [address] [place] [id number] Aug, [facility] [address] [facility] [facility] [id number] [address] [place] [phone] Aug, Bipolar affective disorder, remission status unspecified F31.9 and Diabetes E11.9 [facility] [address] [facility] [id number] [address] [place] [phone] Aug, Diabetes E11.9 ; Schizoaffec tive disorder, bipolar type F25.0 ; Pharyngitis due to other organism J02.8 ; Panlobular emphysema J43.1 and Irritable bowel syndrome with both constipation and diarrhea K58.2 [place] [address] [facility] [id number] [address] [place] [phone] Aug, Abnormal mammogram R92.8 [facility] [address] [facility] [id number] [address] [place] [phone] Aug, [facility] [address] [place] [id number] [address] [place] [id number] Aug, Bipolar 1 disorder, depresse d, moderate F31.32 ; Panic disorder with agoraphobia F40.01 and Chronic post-traumatic stress disorder (PTSD) F43.12 [facility] [address] [facility] [id number] [address] [place] [phone] Aug, [facility] [address] [facility] [id number] [address] [place] [phone] Aug, [facility] [address] [place] [id number] [address] [place] [phone] Aug, [facility] [address] [facility] [id number] [address] [place] [phone] Jul, [facility] [address] [facility] [id number] [address] [place] [phone] 20 Jul, 2017 Mild persistent asthma witho ut complication J45.30 [facility] [address] [id number] [address] [place] [id number] 19 Jul, 2017 Mild persistent asthma witho ut complication J45.30 [facility] [address] [id number] [address] [place] [phone] 15 Jul, 2017 Bipolar affective disorder, remission status unspecified F31.9 ; Diabetes E11.9 and Irritable bowel syndrome with constipation K58.1 [facility] [address] [facility] [id number] [address] [place] [phone] 13 Jul, 2017 [facility] [address] [facility] [id number] [address] [place] [id number] Jul, [facility] [address] [facility] [id number] [address] [place] [phone] 08 Jul, 2017 Frequent headaches R51 [facility] [address] [facility] [id number] [address] [place] [phone] 07 Jul, 2017 [facility] [address] [facility] [id number] [address] [place] [phone] Jul, [facility] [address] [facility] [id number] [address] [place] [phone] Jul, [facility] [address] [facility] [id number] [address] [place] [phone] Jul, Frequent headaches R51 ; Fib rocystic disease of left breast N60.12 ; Fibrocystic disease of right breast N60.11 and Diabetes E11.9 [facility] [address] [facility] [id number] [address] [place] [phone] 02 Jul, 2017 [facility] [address] [facility] [id number] [address] [place] [phone] Jul, [facility] [address] [facility] [id number] [address] [place] [phone] 21 Jun, 2017 Exudative tonsillitis J03.90 [facility] [address] [facility] [id number] [address] [place] [phone] 20 Jun, 2017 [facility] [address] [facility] [id number] [address] [place] [phone] 19 Jun, 2017 [facility] [address] [facility] [id number] [place] [phone] 15 Jun, 2017 Mild persistent asthma witho ut complication J45.30 ; Chronic obstructive pulmonary disease, unspecified COPD type J44.9 and Exudative tonsillitis J03.90 [facility] [address] [facility] [id number] [address] [place] [phone] 13 Jun, 2017 Encounter for immunization Z 23 [facility] [address] [facility] [id number] [address] [place] [phone] 12 Jun, 2017 [facility] [address] [facility] [id number] [address] [place] [phone] Jun, [facility] [address] [place] [id number] [address] [place] [phone] 09 Jun, 2017 [facility] [address] [facility] [id number] [address] [place] [phone] 06 Jun, 2017 Tonsillitis J03.90 [facility] [address] [facility] [id number] [address] [place] [phone] 05 Jun, 2017 [facility] [address] [facility] [id number] [address] [place] [id number] Jun, Acute non-recurrent maxillar y sinusitis J01.00 [facility] [address] [facility] [id number] [address] [place] [phone] Jun, [facility] [address] [place] [id number] [address] [place] [phone] May, [facility] [address] [facility] [id number] [address] [place] [phone] May, [facility] [address] [facility] [id number] [address] [place] [id number] May, GERD (gastroesophageal reflu x disease) K21.9 [facility] [address] [facility] [id number] [address] [place] [phone] May, Migraine without aura and wi thout status migrainosus, not intractable G43.009 [facility] [address] [facility] [id number] [address] [place] [phone] May, [facility] [address] [facility] [id number] [address] [place] [phone] May, [facility] [address] [place] [id number] [address] [place] [phone] May, Panlobular emphysema J43.1 a nd Acute non-recurrent maxillary sinusitis J01.00 [facility] [address] [place] [id number] [address] [place] [phone] May, Bipolar 1 disorder, depresse d, moderate F31.32 ; Panic disorder with agoraphobia F40.01 and Akathisia G25.71 [place] [address] [place] [id number] [address] [place] [id number] Apr, [facility] [address] [facility] [id number] [address] [place] [phone] Apr, [facility] [address] [facility] [id number] [address] [place] [phone] Apr, Acute non-recurrent maxillar y sinusitis J01.00 [facility] [address] [facility] [id number] [address] [place] [phone] Apr, Panlobular emphysema J43.1 [facility] [address] [facility] [id number] [address] [place] [phone] Apr, [facility] [address] [facility] [id number] [address] [place] [phone] Apr, Exudative tonsillitis J03.90 and Sore throat J02.9 [facility] [address] [facility] [id number] [address] [place] [phone] 17 Mar, 2017 [facility] [address] [facility] [id number] [address] [place] [phone] 15 Mar, 2017 Acute non-recurrent maxillar y sinusitis J01.00 [facility] [address] [facility] [id number] [address] [place] [phone] Mar, [facility] [address] [facility] [id number] [place] [phone] Mar, Panlobular emphysema J43.1 a nd Diabetes E11.9 [place] [address] [place] [id number] [address] [place] [phone] 06 Mar, 2017 [facility] [address] [facility] [id number] [address] [place] [id number] 24 Feb, 2017 Wheezing R06.2 and Acute rec urrent pansinusitis J01.41 [facility] [address] [facility] [id number] [address] [place] [phone] Feb, [facility] [address] [facility] [id number] [address] [place] [phone] Feb, Acute non-recurrent maxillar y sinusitis J01.00 [facility] [address] [facility] [id number] [address] [place] [phone] Feb, Chronic obstructive pulmonar y disease, unspecified J44.9 [facility] [address] [place] [id number] [address] [place] [phone] Feb, Hypoxemia R09.02 and Chronic obstructive pulmonary disease, unspecified J44.9 [facility] [address] [place] [id number] [address] [place] [id number] Jan, Bipolar 1 disorder, depresse d, moderate F31.32 ; Panic disorder with agoraphobia F40.01 ; Chronic post-traumatic stress disorder (PTSD) F43.12 ; Diabetes E11.9 and Moderate persistent asthma without complication J45.40 [facility] [address] [id number] [address] [place] [phone] 22 Jan, 2017 [facility] [address] [id number] [address] [place] [id number] 19 Jan, 2017 Acute non-recurrent maxillar y sinusitis J01.00 [facility] [address] [id number] [address] [place] [id number] 18 Jan, 2017 [facility] [address] [id number] [address] [place] [phone] 18 Jan, 2017 [facility] [address] [facility] [id number] [address] [place] [phone] Jan, Moderate persistent asthma w [facility] complication J45.40 and Hypoxemia R09.02 [facility] [address] [id number] [address] [place] [phone] Jan, Moderate persistent asthma w [facility] complication J45.40 and Hypoxemia R09.02 [facility] [address] [id number] [address] [place] [phone] Jan, [facility] [address] [facility] [id number] [address] [place] [id number] Dec, Acute non-recurrent maxillar y sinusitis J01.00 [facility] [address] [id number] [address] [place] [id number] Dec, Chronic obstructive pulmonar y disease, unspecified J44.9 [facility] [address] [facility] [id number] [address] [place] [phone] Dec, [facility] [address] [facility] [id number] [address] [place] [id number] Dec, Mild persistent asthma witho ut complication J45.30 and Other chronic pain G89.29 [facility] [address] [id number] [address] [place] [id number] Nov, [facility] [address] [id number] [address] [place] [phone] Nov, Acute non-recurrent maxillar y sinusitis J01.00 [facility] [address] [facility] [id number] [address] [place] [phone] Nov, [facility] [address] [id number] [address] [place] [phone] Nov, [facility] [address] [facility] [id number] [address] [place] [id number] Oct, [facility] [address] [facility] [id number] [address] [place] [phone] Oct, Bipolar 1 disorder, depresse d, partial remission F31.75 ; Panic disorder with agoraphobia F40.01 and Chronic post-traumatic stress disorder (PTSD) F43.12 [facility] [address] [id number] [address] [place] [id number] Oct, Acute non-recurrent maxillar y sinusitis J01.00 [facility] [address] [facility] [id number] [address] [place] [phone] Oct, [facility] [address] [facility] [id number] [address] [place] [phone] Oct, Diabetes E11.9 [facility] [address] [facility] [id number] [address] [place] [id number] September, Diabetes E11.9 [facility] [address] [id number] [address] [place] [phone] September, Diabetes E11.9 and Sinus tac hycardia R00.0 [facility] [address] [id number] [address] [place] [id number] September, [facility] [address] [facility] [id number] [address] [place] [id number] September, [facility] [address] [id number] [address] [place] [id number] Aug, Diabetes E11.9 and Lumbago w ith sciatica, right side M54.41 [facility] [address] [facility] [id number] [address] [place] [phone] Aug, [facility] [address] [facility] [id number] [address] [place] [id number] Jul, Bipolar 1 disorder, depresse d, moderate F31.32 ; Panic disorder with agoraphobia F40.01 and Chronic post-traumatic stress disorder (PTSD) F43.12 [facility] [address] [facility] [id number] [address] [place] [id number] Jul, Sore throat J02.9 [facility] [address] [facility] [id number] [address] [place] [id number] Jul, [facility] [address] [facility] [id number] [address] [place] [phone] Jul, [facility] [address] [facility] [id number] [address] [place] [phone] Jul, [facility] [address] [facility] [id number] [address] [place] [id number] Jul, [facility] [address] [facility] [id number] [address] [place] [id number] Jul, Sore throat J02.9 and Pharyn gitis, unspecified etiology J02.9 [facility] [address] [id number] [address] [place] [id number] Jun, [facility] [address] [facility] [id number] [address] [place] [id number] Jun, Diabetes E11.9 [facility] [address] [facility] [id number] [address] [place] [id number] Jun, [facility] [address] [facility] [id number] [address] [place] [id number] Jun, [facility] [address] [id number] [address] [place] [phone] Jun, [facility] [address] [id number] [address] [place] [phone] Jun, [facility] [address] [facility] [id number] [address] [place] [id number] Jun, [facility] [address] [facility] [id number] [address] [place] [id number] Jun, [facility] [address] [facility] [id number] [address] [place] [id number] Jun, [facility] [address] [facility] [id number] [address] [place] [phone] Jun, [facility] [address] [facility] [id number] [address] [place] [phone] May, Diabetes E11.9 ; Other chron ic pain G89.29 ; Acute recurrent maxillary sinusitis J01.01 ; Bipolar I disorder with depression F31.9 and Anxiety disorder, unspecified F41.9 [facility] [address] [facility] [id number] [address] [place] [id number] May, [facility] [address] [facility] [id number] [address] [place] [id number] May, Diabetes E11.9 ; Bipolar I d isorder with depression F31.9 ; Anxiety disorder, unspecified F41.9 ; Other chronic pain G89.29 and Acute recurrent maxillary sinusitis J01.01 [facility] [address] [facility] [id number] [address] [place] [id number] May, [facility] [address] [facility] [id number] [address] [place] [phone] May, Attention deficit hyperactiv ity disorder (ADHD), predominantly inattentive type F90.0 [facility] [address] [facility] [id number] [address] [place] [phone] May, [place] [id number] [id number] [address] [place] [phone] Apr, Attention deficit hyperactiv ity disorder (ADHD), predominantly inattentive type F90.0 and Non-seasonal allergic rhinitis due to other allergic trigger J30.89 [place] [address] [id number] [address] [place] [id number] Apr, Bipolar 1 disorder, depresse d, moderate F31.32 ; Panic disorder with agoraphobia F40.01 and Chronic post-traumatic stress disorder (PTSD) F43.12 [place] [address] [id number] [address] [place] [id number] Apr, Dental examination Z01.20 [place] [address] [id number] [address] [place] [id number] Mar, [place] [address] [id number] [address] [place] [phone] Mar, [place] [address] [id number] [address] [place] [id number] 17 Mar, 2016 Bipolar I disorder with depr ession F31.9 and Anxiety disorder, unspecified F41.9 [place] [address] [id number] [address] [place] [id number] 08 Mar, 2016 Panic disorder with agorapho syd F40.01 ; Bipolar 1 disorder, depressed, moderate F31.32 and Chronic post-traumatic stress disorder (PTSD) F43.12 [place] [address] [id number] [address] [place] [id number] Mar, [place] [address] [id number] [address] [place] [phone] Mar, Dental caries K02.9 [place] [address] [id number] [address] [place] [id number] 24 Feb, 2016 Lumbago with sciatica, left side M54.42 ; Lumbago with sciatica, right side M54.41 and Other chronic pain G89.29 [facility] [address] [id number] [address] [place] [id number] 17 Feb, 2016 [facility] [address] [facility] [id number] [address] [place] [id number] 14 Feb, 2016 [facility] [address] [facility] [id number] [address] [place] [phone] 13 Feb, 2016 Bipolar I disorder with depr ession F31.9 ; PTSD (post-traumatic stress disorder) F43.10 and Mood disorder F39 [facility] [address] [facility] [id number] [address] [place] [id number] Feb, [facility] [address] [facility] [id number] [address] [place] [id number] 11 Feb, 2016 Dental examination Z01.20 [facility] [address] [facility] [id number] [address] [place] [id number] 07 Feb, 2016 [facility] [address] [facility] [id number] [address] [place] [id number] 03 Feb, 2016 Acute bronchitis, unspecifie d organism J20.9 [facility] [address] [facility] [id number] [address] [place] [phone] 26 Jan, 2016 Mood disorder F39 ; Migraine without aura and without status migrainosus, not intractable G43.009 ; Irritable bowel syndrome, unspecified type K58.9 ; Diabetes E11.9 and Encounter for immunization Z23 [facility] [address] [facility] [id number] [address] [place] [phone] 15 Jan, 2016 [facility] [address] [facility] [id number] [address] [place] [phone] 06 Jan, 2016 [facility] [address] [facility] [id number] [address] [place] [phone] Jan, [facility] [address] [facility] [id number] [address] [place] [id number] Jan, [facility] [address] [place] [id number] [address] [place] [phone] Jan, [facility] [address] [id number] [address] [place] [id number] Dec, Bipolar I disorder with depr ession F31.9 ; PTSD (post-traumatic stress disorder) F43.10 and Panic disorder with agoraphobia F40.01 [facility] [address] [facility] [id number] [address] [place] [phone] Dec, Chronic obstructive pulmonar y disease, unspecified COPD type J44.9 ; Tremor R25.1 and Anxiety F41.9 [facility] [address] [id number] [address] [place] [phone] Dec, [facility] [address] [place] [id number] [address] [place] [id number] Nov, Tremors of nervous system R2 5.1 and Cramping of feet R25.2 [facility] [address] [place] [id number] [address] [place] [phone] Nov, [facility] [address] [facility] [id number] [address] [place] [phone] Nov, [facility] [address] [place] [id number] [address] [place] [phone] Oct, Chronic obstructive pulmonar y disease, unspecified J44.9 [facility] [address] [place] [id number] [address] [place] [id number] Oct, [facility] [address] [facility] [id number] [address] [place] [id number] Oct, Tremor R25.1 [facility] [address] [facility] [id number] [address] [place] [phone] Oct, Bipolar I disorder with depr ession F31.9 ; Diabetes E11.9 ; PTSD (post-traumatic stress disorder) F43.10 and Panic disorder with agoraphobia F40.01 [facility] [address] [place] [id number] [address] [place] [phone] Oct, Mood disorder F39 [facility] [address] [facility] [id number] [address] [place] [phone] September, [place] [id number] [facility] [id number] [address] [place] [phone] September, Diabetes E11.9 ; Bipolar I d isorder with depression F31.9 ; PTSD (post-traumatic stress disorder) F43.10 and Panic disorder with agoraphobia F40.01 [place] [id number] [facility] [id number] [address] [place] [phone] September, Mood disorder F39 ; Schizoaf fective disorder, unspecified type F25.9 ; Arthritis M19.90 ; Tremor R25.1 ; Acute non-recurrent frontal sinusitis J01.10 and Blood in stool K92.1 [place] [address] [address] [facility] [id number] [address] [place] [phone] September, [place] [address] [address] [facility] [id number] [address] [place] [id number] September, Chronic obstructive pulmonar y disease, unspecified J44.9 [place] [address] [address] [facility] [id number] [address] [place] [phone] September, Diabetes E11.9 [place] [address] [address] [facility] [id number] [address] [place] [phone] Aug, Other bipolar disorder F31.8 9 and Anxiety disorder, unspecified F41.9 [place] [id number] [facility] [id number] [address] [place] [id number] Aug, [place] [address] [address] [facility] [id number] [address] [place] [address] Aug, Diabetes E11.9 [place] [address] [address] [facility] [id number] [address] [place] [address] 18 Aug, 2015 [place] [address] [address] [facility] [id number] [address] [place] [id number] 14 Apr, 2016 Diabetes E11.9 ; Fatigue R53 .83 and Dizziness R42 [facility] [address] [id number] [address] [place] [id number] 13 Aug, 2015 Other bipolar disorder F31.8 9 [facility] [address] [id number] [address] [place] [id number] 07 Aug, 2015 Generalized anxiety disorder F41.1 [facility] [address] [id number] [address] [place] [id number] 07 Aug, 2015 Other bipolar disorder F31.8 9 and Anxiety disorder, unspecified F41.9 [facility] [address] [id number] [address] [place] [address] Aug, [facility] [address] [id number] [address] [place] [phone] Jul, [facility] [address] [id number] [address] [place] [id number] 24 Jul, 2015 [facility] [address] [id number] [address] [place] [id number] Jul, Bronchitis J40 [facility] [address] [id number] [address] [place] [id number] 22 Jul, 2015 Anxiety disorder F41.9 [facility] [address] [id number] [address] [place] [id number] Jul, Other bipolar disorder F31.8 9 and Anxiety disorder, unspecified F41.9 [facility] [address] [id number] [address] [place] [id number] 18 Jul, 2015 Other bipolar disorder F31.8 9 and Fibromyalgia M79.7 [facility] [address] [id number] [address] [place] [id number] 10 Jul, 2015 [facility] [address] [id number] [address] [place] [id number] 09 Jul, 2015 [facility] [address] [id number] [address] [place] [id number] Jul, [facility] [address] [place] [id number] [address] [place] [address] Jul, Other bipolar disorder F31.8 9 and Anxiety disorder, unspecified F41.9 [facility] [address] [place] [id number] [address] [place] [id number] Jun, GERD (gastroesophageal reflu x disease) K21.9 [facility] [address] [id number] Jun, [facility] [address] [address] May, [facility] [address] [address] May, Diabetes E11.9 ; Back pain M 54.9 ; GERD (gastroesophageal reflux disease) K21.9 ; Hypertension I10 and Peripheral neuropathy G62.9 [facility] [address] [address] Mar, [facility] [address] [address] Mar, [facility] [address] [address] Mar, Acute sinusitis J01.90 and O titis media, left H66.92 [facility] [address] [place] [id number] [address] [place] [phone] Feb, [facility] [address] [id number] Feb, [facility] [address] [address] Feb, [facility] [address] [address] 13 Feb, 2015 [facility] [address] [address] Jan, [facility] [address] [facility] [id number] [address] [place] [phone] Jan, Diabetes 250.00 and Back higinio n 724.5 [facility] [address] [facility] [id number] [address] [place] [id number] Jan, [facility] [address] [facility] [id number] [address] [place] [id number] Dec, Diabetes 250.00 ; Benign ess ential hypertension 401.1 and Allergic rhinitis 477.9 [facility] [address] [facility] [id number] [address] [place] [id number] Dec, [facility] [address] [facility] [id number] [address] [place] [phone] Dec, [facility] [address] [place] [id number] [address] [place] [address] Dec, Psychosis 298.9 [facility] [address] [place] [id number] [address] [place] [id number] Dec, Medication side effect 995.2 0 and Generalized anxiety disorder 300.02 [facility] [address] [place] [id number] [address] [place] [id number] Dec, Acquired cognitive dysfuncti on 294.9 [facility] [address] [place] [id number] [address] [place] [id number] Dec, [facility] [address] [place] [id number] [address] [place] [id number] Dec, Unspecified myalgia and myos itis 729.1 and Generalized anxiety disorder 300.02 [facility] [address] [facility] [id number] [address] [place] [id number] Nov, [facility] [address] [place] [id number] [address] [place] [id number] Nov, [facility] [address] [place] [id number] [address] [place] [id number] Nov, [facility] [address] [id number] [address] [place] [id number] Nov, Upper respiratory infection 465.9 and Chronic airway obstruction, not elsewhere classified 496 [facility] [address] [id number] [address] [place] [id number] Nov, Hyponatremia 276.1 [facility] [address] [id number] [address] [place] [id number] Oct, [facility] [address] [id number] [address] [place] [id number] Oct, [facility] [address] [id number] [address] [place] [id number] Oct, [facility] [address] [id number] [address] [place] [id number] Oct, [facility] [address] [facility] [id number] [address] [place] [id number] Oct, Hyponatremia 276.1 [facility] [address] [id number] [address] [place] [id number] Oct, [facility] [address] [id number] [address] [place] [id number] Oct, [facility] [address] [facility] [id number] [address] [place] [id number] Oct, Generalized anxiety disorder 300.02 [facility] [address] [id number] [address] [place] [id number] Oct, Generalized anxiety disorder 300.02 and Diabetes 250.00 [facility] [address] [id number] [address] [place] [id number] Aug, [facility] [address] [facility] [id number] [address] [place] [id number] Aug, [facility] [address] [facility] [id number] [address] [place] [phone] Jul, [facility] [address] [id number] [address] [place] [address], [place] [address] Jul, [facility] [address] [id number] [address] [place] [address], [place] [address] Jun, [facility] [address] [id number] [address] [place] [address], [place] [address] Jun, [facility] [address] [id number] [address] [place] [address], [place] [address] Jun, [facility] [address] [id number] [address] [place] [address], [place] [address] Jun, [facility] [address] [id number] [address] [place] [address], [place] [address] Jun, [facility] [address] [id number] [address] [place] [address], [place] [address] May, [facility] [address] [id number] [address] [place] [address], [place] [address] May, [facility] [address] [id number] [address] [place] [address], [place] [address] Apr, [facility] [address] [id number] [address] [place] [address], [place] [address] Apr, [facility] [address] [id number] [address] [place] [address], [place] [address] Apr, [facility] [address] [id number] [address] [place] [address], [place] [address] Apr, [facility] [address] [id number] [address] [place] [address], [place] [address] Apr, [facility] [address] [id number] [address] [place] [address], [place] [address] Apr, [facility] [address] [id number] [address] [place] [address], [place] [address] Apr, [facility] [address] [id number] [address] [place] [address], [place] [address] Apr, [facility] [address] [id number] [address] [place] [address], [place] [address] Feb, [facility] [address] [id number] [address] [place] [address], [place] [address] Feb, [facility] [address] [id number] [address] [place] [address], [place] [address] Jan, [facility] [address] [id number] [address] [place] [address], [place] [address] Jan, [facility] [address] [id number] [address] [place] [address], [place] [address] Dec, [facility] [address] [id number] [address] [place] [address], [place] [address] Dec, [facility] [address] [id number] [address] [place] [address], [place] [address] Dec, [facility] [address] [id number] [address] [place] [address], [place] [address] Nov, [facility] [address] [id number] [address] [place] [address], [place] [address] Nov, [facility] [address] [id number] [address] [place] [address], [place] [address] Nov, [facility] [address] [id number] [address] [place] [address], [place] [address] Oct, [facility] [address] [id number] [address] [place] [address], [place] [address] Oct, [facility] [address] [id number] [address] [place] [address], [place] [address] Oct, [facility] [address] [id number] [address] [place] [address], [place] [address] September, [facility] [address] [id number] [address] [place] [address], [place] [address] September, [facility] [address] [id number] [address] [place] [address], [place] [address] September, [facility] [address] [id number] [address] [place] [address], [place] [address] 25 Aug, 2011 [facility] [address] [id number] [address] [place] [address], [place] [address] 20 Aug, 2011 [facility] [address] [id number] [address] [place] [address], [place] [address] 19 Aug, 2011 [facility] [address] [id number] [address] [place] [address], [place] [address] 16 Aug, 2011 [facility] [address] [id number] [address] [place] [address], [place] [address] Jul, [facility] [address] [id number] [address] [place] [address], [place] [address] 21 Jun, 2011 [facility] [address] [id number] [address] [place] [address], [place] [address] 14 Jun, 2011 [facility] [address] [id number] [address] [place] [address], [place] [address] 13 Jun, 2011 [facility] [address] [id number] [address] [place] [address], [place] [address] 07 Jun, 2011 [facility] [address] [id number] [address] [place] [address], [place] [address] 03 Jun, 2011 [facility] [address] [id number] [address] [place] [address], [place] [address] 13 May, 2011 [facility] [address] [id number] [address] [place] [address], [place] [address] 10 May, 2011 [facility] [address] [id number] [address] [place] [address], [place] [address] 09 May, 2011 [facility] [address] [id number] [address] [place] [address], [place] [address] 04 May, 2011 [facility] [address] [id number] [address] [place] [address], [place] [address] 20 Apr, 2011 [facility] [address] [id number] [address] [place] [address], [place] [address] 13 Apr, 2011 [facility] [address] [id number] [address] [place] [address], [place] [address] 05 Apr, 2011 [facility] [address] [id number] [address] [place] [address], [place] [address] Mar, [facility] [address] [id number] [address] [place] [address], [place] [address] Mar, [facility] [address] [id number] [address] [place] [address], [place] [address] Mar, [facility] [address] [id number] [address] [place] [address], [place] [address] 13 Feb, 2011 [facility] [address] [id number] [address] [place] [address], [place] [address] 13 Feb, 2011 [facility] [address] [id number] [address] [place] [address], [place] [address] 13 Feb, 2011 [facility] [address] [id number] [address] [place] [address], [place] [address] Nov, [facility] [address] [id number] [address] [place] [address], [place] [address] 16 Sep, 2010 [facility] [address] [id number] [address] [place] [address], [place] [address] Aug, [facility] [address] [id number] [address] [place] [address], [place] [address] 14 Jul, 2010 [facility] [address] [id number] [address] [place] [address], [place] [address] May, [facility] [address] [id number] [address] [place] [address], [place] [address] 31 Apr, 2010 [facility] [address] [id number] [address] [place] [address], [place] [address] 30 Apr, 2010 [facility] [address] [id number] [address] [place] [phone] Apr, [facility] [address] [facility] [id number] [address] [place] [id number] Apr, [facility] [address] [facility] [id number] [address] [place] [phone] Apr, IMMUNIZATIONS No Known Immunizations SOCIAL HISTORY Never Assessed REASON FOR VISIT Request return call PLAN OF CARE VITAL SIGNS [...]
--- OUTSIDE RECORDS SUMMARY | 2019-07-17 10:40 | XMS REPORT ---
Author Author Sujey MEDINA [facility] Address [address] [place] [address] Care Team Providers Care Management Lecturer Name Role Phone JAKI MEDINA Unavailable PROBLEMS Type Condition ICD9-CM Code MSY87-RS Code Onset Dates Condition S tatus SNOMED Code Problem Bipolar 1 disorder, depressed, moderate F31.32 Active 28015497 Problem Bipolar affective disorder, remission status unspecified F31.9 Active 46017989 Problem Chronic post-traumatic stress disorder (PTSD) F43. 12 Active 707449456 Problem Bipolar I disorder with depression F31.9 Active 81811801 Problem Attention deficit hyperactiv ity disorder (ADHD), predominantly inattentive type F90.0 Active 43360273 Problem Bipolar 1 disorder, depressed, partial remission F 31.75 Active 22187258 Problem Acute non-recurrent maxillary sinusitis J01.00 Active 16445649 Problem Slow transit constipation K59.01 Acti ve 37305294 Problem Lumbago with sciatica, left side M54.42 Active 655357340 Problem Essential tremor G25.0 Active 609 692770 Problem Chronic obstructive pulmonary disease, unspecified J44.9 Active 58067134 Problem Other chronic pain G89.29 Active 8 1290774 Problem Lumbago with sciatica, right side M54.41 Active 138508888 Problem Migraine without aura and without status migrain osus, not intractable G43.009 Active 360268036 Problem Akathisia G25.71 Active 435619868 Problem Fibrocystic disease of right breast N60.11 Active 05579246 Problem Back pain M54.9 Active 098475463 Problem Fibrocystic disease of left breast N60.12 Active 33057449 Problem Hypertension I10 Active 6971818 3 Problem Irritable bowel syndrome with constipation K58.1 Active 696081882 Problem Other bipolar disorder F31.89 Active 82284530 Problem Arthritis M19.90 Active 1413167 Problem Anxiety disorder, unspecified F41.9 Active 922733498 Problem Schizoaffective disorder, bipolar type F25.0 Active 73066037 Problem Panic disorder with agoraphobia F40.01 Active 57281233 Problem Irritable bowel syndrome with both constipation and diarrh ea K58.2 Active 19278433 Problem Fibromyalgia M79.7 Active 0774202 7 Problem Daytime somnolence R40.0 Active 1 51224126421 Problem Abnormal mammogram of right breast R92.8 Active 560268226 Problem Tinnitus of right ear H93.11 Active 19078983 Problem Diffuse cystic mastopathy of right breast N60.11 Active 93791406 Problem Moderate persistent asthma without complication J4 5.40 Active 702783786 Problem Hemiplegia and hemiparesis f ollowing unspecified cerebrovascular disease affecting right dominant side I69.951 Active 256409875 Problem Mild persistent asthma without complication J45.30 Active 801204798 Problem GERD (gastroesophageal reflux disease) K21.9 Active 836108968 Problem Panlobular emphysema J43.1 Active 6445955 Problem Tinnitus of both ears H93.13 Active 8412506124727 Problem Contracture, left hand M24.542 Active 866376048909689 Problem Diabetes E11.9 Active 28090656 Problem Mood disorder F39 Active 739133 05 Problem Diffuse cystic mastopathy of left breast N60.12 Active 54197516 ALLERGIES No Information ENCOUNTERS Encounter Location Date Diagnosis [place] [address] [facility] [id number] [address] [place] [phone] Dec, [place] [address] [facility] [id number] [address] [place] [phone] Nov, Hip pain, left M25.552 [facility] [address] [facility] [id number] [address] [place] [phone] Nov, [facility] [address] [facility] [id number] [address] [place] [phone] Nov, [place] [address] [facility] [id number] [address] [place] [phone] Nov, Hemiplegia and hemiparesis f ollowing unspecified cerebrovascular disease affecting right dominant side I69.951 ; Diabetes E11.9 ; Daytime somnolence R40.0 and Other chronic pain G89.29 [facility] [address] [id number] [address] [place] [phone] Nov, [facility] [address] [id number] [address] [place] [phone] Nov, [facility] [address] [id number] [address] [place] [phone] Nov, Hemiplegia and hemiparesis f ollowing unspecified cerebrovascular disease affecting right dominant side I69.951 ; Lower leg edema R60.0 and Plantar fasciitis, bilateral M72.2 [facility] [address] [id number] [address] [place] [phone] Oct, [facility] [address] [id number] [address] [place] [phone] Oct, Daytime somnolence R40.0 ; D iabetes E11.9 and Other chronic pain G89.29 [facility] [address] [id number] [address] [place] [phone] Oct, Edema, lower extremity R60.0 and Hip pain, left M25.552 [facility] [address] [id number] [address] [place] [phone] Oct, [facility] [address] [id number] [address] [place] [phone] September, [facility] [address] [id number] [address] [place] [phone] September, Diabetes E11.9 and Other chr onic pain G89.29 [facility] [address] [id number] [address] [place] [phone] September, Diabetes E11.9 and Other chr onic pain G89.29 [facility] [address] [id number] [address] [place] [phone] September, [facility] [address] [id number] [address] [place] [phone] Aug, [place] [address] [facility] [id number] [address] [place] [phone] Aug, Hypertension I10 [place] [address] [facility] [id number] [address] [place] [phone] Aug, [place] [address] [facility] [id number] [address] [place] [phone] Aug, [place] [address] [facility] [id number] [address] [place] [phone] Aug, Diabetes E11.9 and Edema of both legs R60.0 [place] [address] [facility] [id number] [address] [place] [phone] Aug, Panic disorder with agorapho syd F40.01 ; Other chronic pain G89.29 and Daytime somnolence R40.0 [place] [address] [facility] [id number] [address] [place] [phone] Jul, [place] [address] [facility] [id number] [address] [place] [phone] Jul, [place] [address] [facility] [id number] [address] [place] [phone] Jul, Diffuse cystic mastopathy of left breast N60.12 and Diffuse cystic mastopathy of right breast N60.11 [place] [address] [facility] [id number] [address] [place] [phone] Jul, Fibrocystic disease of right breast N60.11 [place] [address] [facility] [id number] [address] [place] [phone] Jul, Fibrocystic disease of right breast N60.11 and Fibrocystic disease of left breast N60.12 [place] [address] [facility] [id number] [address] [place] [phone] Jul, Encounter for Medicare annua l wellness exam Z00.00 ; Schizoaffective disorder, bipolar type F25.0 ; Chronic obstructive pulmonary disease, unspecified J44.9 ; Fibromyalgia M79.7 and Acute non-recurrent maxillary sinusitis J01.00 [facility] [address] [id number] [address] [place] [phone] 14 Jul, 2018 Daytime somnolence R40.0 [facility] [address] [id number] [address] [place] [phone] 14 Jul, 2018 [facility] [address] [facility] [id number] [address] [place] [phone] Jul, [facility] [address] [id number] [address] [place] [phone] Jul, Panic disorder with agorapho syd F40.01 ; Anxiety disorder, unspecified F41.9 ; Other chronic pain G89.29 and Daytime somnolence R40.0 [place] [address] [facility] [id number] [address] [place] [phone] Jul, [facility] [address] [facility] [id number] [address] [place] [phone] Jun, [facility] [address] [facility] [id number] [address] [place] [phone] 08 Jun, 2018 Hip pain, left M25.552 ; Leg pain, left M79.605 ; Lumbar pain M54.5 and Mood disorder F39 [facility] [address] [facility] [id number] [address] [place] [phone] 08 Jun, 2018 Diabetes E11.9 ; Other chron ic pain G89.29 and Anxiety disorder, unspecified F41.9 [facility] [address] [facility] [id number] [address] [place] [phone] 07 Jun, 2018 Hip pain, left M25.552 ; Leg pain, left M79.605 ; Lumbar pain M54.5 and Mood disorder F39 [facility] [address] [facility] [id number] [address] [place] [phone] May, Diabetes E11.9 [facility] [address] [facility] [id number] [address] [place] [phone] May, [facility] [address] [id number] [address] [place] [phone] May, Other chronic pain G89.29 an d Anxiety disorder, unspecified F41.9 [facility] [address] [id number] [address] [place] [phone] May, [place] [address] [id number] [address] [place] [phone] May, [place] [address] [id number] [address] [place] [phone] May, Tinnitus of right ear H93.11 [place] [address] [id number] [address] [place] [phone] May, Diabetes E11.9 ; Tinnitus of both ears H93.13 ; Contracture, left hand M24.542 and Family history of rheumatic joint disease Z82.69 [place] [address] [id number] [address] [place] [phone] Apr, [place] [address] [id number] [address] [place] [phone] Apr, [place] [address] [id number] [address] [place] [phone] Apr, Tinnitus of right ear H93.11 and Hypertension I10 [place] [address] [id number] [address] [place] [phone] Apr, Other chronic pain G89.29 ; Daytime somnolence R40.0 and Anxiety disorder, unspecified F41.9 [place] [address] [id number] [address] [place] [phone] Apr, [place] [address] [facility] [id number] [address] [place] [phone] Apr, [place] [address] [facility] [id number] [address] [place] [phone] Mar, Tinnitus of right ear H93.11 [facility] [address] [facility] [id number] [address] [place] [phone] Mar, [facility] [address] [facility] [id number] [address] [place] [phone] Mar, Anxiety disorder, unspecifie d F41.9 ; Other chronic pain G89.29 and Daytime somnolence R40.0 [facility] [address] [facility] [id number] [address] [place] [phone] Mar, Irritable bowel syndrome wit h both constipation and diarrhea K58.2 [facility] [address] [facility] [id number] [address] [place] [phone] Mar, [facility] [address] [place] [id number] [address] [place] [phone] Mar, Hypertension I10 [facility] [address] [place] [id number] [address] [place] [phone] Mar, [facility] [address] [facility] [id number] [address] [place] [phone] Mar, [facility] [address] [place] [id number] [address] [place] [phone] Mar, [facility] [address] [facility] [id number] [address] [place] [phone] Mar, Diabetes E11.9 [facility] [address] [place] [id number] [address] [place] [phone] Mar, [facility] [address] [facility] [id number] [address] [place] [phone] Feb, Daytime somnolence R40.0 and Anxiety disorder, unspecified F41.9 [facility] [address] [facility] [id number] [address] [place] [phone] Feb, [facility] [address] [facility] [id number] [address] [place] [phone] Feb, [facility] [address] [place] [id number] [address] [place] [phone] Feb, Tremors of nervous system R2 5.1 and Acute swimmer''s ear of right side H60.331 [place] [address] [facility] [id number] [address] [place] [phone] Feb, Cerebrovascular accident (CV A) due to occlusion of right cerebellar artery I63.541 and Hypertension I10 [place] [address] [facility] [id number] [address] [place] [phone] Feb, [place] [address] [facility] [id number] [address] [place] [phone] Feb, Cerebrovascular accident (CV A) due to occlusion of right cerebellar artery I63.541 [place] [id number] [facility] [id number] [place] [id number] Feb, Hyponatremia E87.1 [place] [address] [place] [id number] [address] [place] [phone] Feb, [place] [address] [facility] [id number] [address] [place] [phone] Feb, Daytime somnolence R40.0 [place] [address] [place] [id number] [address] [place] [phone] Feb, [place] [address] [place] [id number] [address] [place] [phone] Jan, [place] [address] [place] [id number] [address] [place] [phone] Jan, [place] [address] [facility] [id number] [address] [place] [phone] Jan, Chronic obstructive pulmonar y disease, unspecified J44.9 and Anxiety disorder, unspecified F41.9 [place] [address] [facility] [id number] [address] [place] [phone] Jan, Hypertension I10 ; Fibromyal medhat M79.7 and Lumbago with sciatica, left side M54.42 [facility] [address] [id number] [address] [place] [phone] 26 Jan, 2018 [facility] [address] [id number] [address] [place] [phone] 20 Jan, 2018 Cerebrovascular accident (CV A) due to occlusion of right cerebellar artery I63.541 [facility] [address] [id number] [address] [place] [phone] 19 Jan, 2018 [facility] [address] [id number] [address] [place] [phone] 13 Jan, 2018 Arthritis M19.90 [place] [address] [facility] [id number] [address] [place] [phone] 07 Jan, 2018 [place] [address] [facility] [id number] [address] [place] [phone] 04 Jan, 2018 Abnormal mammogram of right breast R92.8 [place] [address] [facility] [id number] [address] [place] [phone] Dec, Daytime somnolence R40.0 and Right otitis media with effusion H65.91 [facility] [address] [facility] [id number] [address] [place] [phone] Dec, [facility] [address] [facility] [id number] [address] [place] [phone] Dec, Cerebrovascular accident (CV A) due to occlusion of right cerebellar artery I63.541 [facility] [address] [id number] [address] [place] [phone] Dec, [facility] [address] [id number] [address] [place] [phone] Dec, [place] [address] [facility] [id number] [address] [place] [phone] Nov, Bipolar 1 disorder, depresse d, partial remission F31.75 and Panic disorder with agoraphobia F40.01 [facility] [address] [facility] [id number] [address] [place] [phone] Nov, Panlobular emphysema J43.1 [facility] [address] [id number] [address] [place] [phone] Nov, Cerebrovascular accident (CV A) due to occlusion of right cerebellar artery I63.541 and Acute non-recurrent maxillary sinusitis J01.00 [facility] [address] [id number] [address] [place] [phone] Nov, Panlobular emphysema J43.1 [facility] [address] [id number] [address] [place] [phone] Nov, [facility] [address] [id number] [address] [place] [phone] Nov, [facility] [address] [id number] [address] [place] [phone] Nov, [facility] [address] [id number] [address] [place] [phone] Nov, [facility] [address] [id number] [address] [place] [phone] Nov, [facility] [address] [id number] [address] [place] [phone] Nov, [facility] [address] [id number] [address] [place] [phone] Nov, [facility] [address] [id number] [address] [place] [phone] Nov, Mild persistent asthma witho ut complication J45.30 and Irritable bowel syndrome with both constipation and diarrhea K58.2 [facility] [address] [id number] [address] [place] [phone] Nov, [facility] [address] [id number] [address] [place] [phone] Oct, [facility] [address] [id number] [address] [place] [phone] Oct, [facility] [address] [id number] [address] [place] [phone] Oct, Type 2 diabetes mellitus wit h diabetic neuropathy, unspecified whether mcfp insulin use E11.40 ; Diabetes E11.9 ; Slow transit constipation K59.01 ; Edema of both legs R60.0 and Dysfunction of right eustachian tube H69.81 [facility] [address] [id number] [address] [place] [phone] Oct, Frequent headaches R51 [facility] [address] [id number] [address] [place] [phone] Oct, [facility] [address] [id number] [address] [place] [phone] Oct, [facility] [address] [id number] [address] [place] [phone] Oct, [facility] [address] [id number] [address] [place] [phone] Oct, [facility] [address] [id number] [address] [place] [phone] Oct, [facility] [address] [facility] [id number] [address] [place] [phone] Oct, [facility] [address] [facility] [id number] [address] [place] [phone] Oct, [facility] [address] [facility] [id number] [address] [place] [phone] Oct, [facility] [address] [facility] [id number] [address] [place] [phone] September, Frequent headaches R51 [facility] [address] [id number] [address] [place] [phone] September, Bilateral otitis media with effusion H65.93 ; Dizziness R42 and Essential tremor G25.0 [facility] [address] [id number] [address] [place] [phone] September, Chronic obstructive pulmonar y disease, unspecified COPD type J44.9 [facility] [address] [id number] [address] [place] [phone] September, Chronic obstructive pulmonar y disease, unspecified COPD type J44.9 [facility] [address] [id number] [address] [place] [phone] September, Migraine without aura and wi thout status migrainosus, not intractable G43.009 [facility] [address] [id number] [address] [place] [phone] September, [facility] [address] [facility] [id number] [address] [place] [phone] September, [facility] [address] [facility] [id number] [address] [place] [phone] September, [facility] [address] [facility] [id number] [address] [place] [phone] September, Frequent headaches R51 [facility] [address] [facility] [id number] [address] [place] [phone] Aug, [facility] [address] [facility] [id number] [address] [place] [phone] Aug, Breast mass, right N63.10 [facility] [address] [facility] [id number] [address] [place] [phone] Aug, Breast lump N63.0 [facility] [address] [facility] [id number] [address] [place] [phone] Aug, [facility] [address] [facility] [id number] [address] [place] [phone] Aug, Bipolar affective disorder, remission status unspecified F31.9 and Diabetes E11.9 [facility] [address] [facility] [id number] [address] [place] [phone] Aug, Diabetes E11.9 ; Schizoaffec tive disorder, bipolar type F25.0 ; Pharyngitis due to other organism J02.8 ; Panlobular emphysema J43.1 and Irritable bowel syndrome with both constipation and diarrhea K58.2 [place] [address] [id number] [address] [place] [phone] Aug, Abnormal mammogram R92.8 [place] [address] [id number] [address] [place] [phone] Aug, [facility] [address] [id number] [address] [place] [phone] Aug, Bipolar 1 disorder, depresse d, moderate F31.32 ; Panic disorder with agoraphobia F40.01 and Chronic post-traumatic stress disorder (PTSD) F43.12 [place] [address] [id number] [address] [place] [id number] Aug, [place] [address] [id number] [address] [place] [id number] Aug, [place] [address] [id number] [address] [place] [id number] Aug, [place] [address] [id number] [address] [place] [id number] Jul, [place] [address] [id number] [address] [place] [id number] Jul, Mild persistent asthma witho ut complication J45.30 [place] [address] [id number] [address] [place] [phone] Jul, Mild persistent asthma witho ut complication J45.30 [place] [address] [id number] [address] [place] [id number] 15 Jul, 2017 Bipolar affective disorder, remission status unspecified F31.9 ; Diabetes E11.9 and Irritable bowel syndrome with constipation K58.1 [place] [address] [id number] 22 [place] [phone] Jul, [place] [address] [id number] [address] [place] [phone] Jul, [facility] [address] [facility] [id number] [address] [place] [phone] Jul, Frequent headaches R51 [facility] [address] [facility] [id number] [address] [place] [phone] Jul, [facility] [address] [facility] [id number] [address] [place] [phone] Jul, [facility] [address] [facility] [id number] [address] [place] [phone] Jul, [facility] [address] [facility] [id number] [address] [place] [phone] Jul, Frequent headaches R51 ; Fib rocystic disease of left breast N60.12 ; Fibrocystic disease of right breast N60.11 and Diabetes E11.9 [place] [address] [place] [id number] [address] [place] [phone] Jul, [facility] [address] [facility] [id number] [address] [place] [phone] Jul, [place] [address] [phone] 21 Jun, 2017 Exudative tonsillitis J03.90 [place] [address] [place] [id number] [address] [place] [phone] Jun, [place] [address] [place] [id number] [address] [place] [phone] 19 Jun, 2017 [place] [address] [place] [id number] [address] [place] [phone] 15 Jun, 2017 Mild persistent asthma witho ut complication J45.30 ; Chronic obstructive pulmonary disease, unspecified COPD type J44.9 and Exudative tonsillitis J03.90 [place] [address] [place] [id number] [address] [place] [phone] 13 Jun, 2017 Encounter for immunization Z 23 [place] [address] [place] [id number] [place] [address], [place] [address] Jun, [facility] [address] [facility] [id number] [address] [place] [phone] Jun, [facility] [address] [facility] [id number] [address] [place] [phone] Jun, [facility] [address] [facility] [id number] [address] [place] [phone] Jun, Tonsillitis J03.90 [facility] [address] [facility] [id number] [address] [place] [phone] Jun, [facility] [address] [place] [id number] [place] [phone] Jun, Acute non-recurrent maxillar y sinusitis J01.00 [facility] [address] [phone] Jun, [facility] [address] [phone] May, [facility] [address] [phone] May, [facility] [address] [place] [id number] [place] [phone] May, GERD (gastroesophageal reflu x disease) K21.9 [facility] [address] [place] [id number] [place] [phone] May, Migraine without aura and wi thout status migrainosus, not intractable G43.009 [facility] [address] [facility] [id number] [address] [place] [phone] May, [facility] [address] [place] [id number] [place] [phone] May, [facility] [address] [place] [id number] [address] [place] [phone] May, Panlobular emphysema J43.1 a nd Acute non-recurrent maxillary sinusitis J01.00 [facility] [address] [id number] [address] [place] [phone] May, Bipolar 1 disorder, depresse d, moderate F31.32 ; Panic disorder with agoraphobia F40.01 and Akathisia G25.71 [facility] [address] [id number] [address] [place] [phone] Apr, [facility] [address] [facility] [id number] [address] [place] [phone] Apr, [facility] [address] [facility] [id number] [address] [place] [phone] Apr, Acute non-recurrent maxillar y sinusitis J01.00 [facility] [address] [facility] [id number] [address] [place] [phone] Apr, Panlobular emphysema J43.1 [facility] [address] [facility] [id number] [address] [place] [phone] 04 Apr, 2017 [facility] [address] [facility] [id number] [address] [place] [phone] 04 Apr, 2017 Exudative tonsillitis J03.90 and Sore throat J02.9 [facility] [address] [facility] [id number] [address] [place] [phone] 17 Mar, 2017 [facility] [address] [facility] [id number] [address] [place] [phone] 15 Mar, 2017 Acute non-recurrent maxillar y sinusitis J01.00 [facility] [address] [facility] [id number] [address] [place] [phone] Mar, [facility] [address] [facility] [id number] [address] [place] [phone] 09 Mar, 2017 Panlobular emphysema J43.1 a nd Diabetes E11.9 [facility] [address] [facility] [id number] [address] [place] [phone] Mar, [facility] [address] [facility] [id number] [address] [place] [phone] Feb, Wheezing R06.2 and Acute rec urrent pansinusitis J01.41 [facility] [address] [facility] [id number] [address] [place] [phone] Feb, [facility] [address] [facility] [id number] [address] [place] [phone] Feb, Acute non-recurrent maxillar y sinusitis J01.00 [facility] [address] [facility] [id number] [address] [place] [phone] Feb, Chronic obstructive pulmonar y disease, unspecified J44.9 [facility] [address] [facility] [id number] [address] [place] [phone] Feb, Hypoxemia R09.02 and Chronic obstructive pulmonary disease, unspecified J44.9 [facility] [address] [facility] [id number] [address] [place] [phone] 28 Jan, 2017 Bipolar 1 disorder, depresse d, moderate F31.32 ; Panic disorder with agoraphobia F40.01 ; Chronic post-traumatic stress disorder (PTSD) F43.12 ; Diabetes E11.9 and Moderate persistent asthma without complication J45.40 [facility] [address] [facility] [id number] [address] [place] [phone] Jan, [facility] [address] [facility] [id number] [address] [place] [phone] 19 Jan, 2017 Acute non-recurrent maxillar y sinusitis J01.00 [facility] [address] [facility] [id number] [address] [place] [phone] Jan, [facility] [address] [facility] [id number] [address] [place] [phone] Jan, [facility] [address] [facility] [id number] [address] [place] [phone] Jan, Moderate persistent asthma w [facility] complication J45.40 and Hypoxemia R09.02 [facility] [address] [id number] [address] [place] [phone] Jan, Moderate persistent asthma w [facility] complication J45.40 and Hypoxemia R09.02 [facility] [address] [id number] [address] [place] [phone] Jan, [facility] [address] [id number] [address] [place] [phone] Dec, Acute non-recurrent maxillar y sinusitis J01.00 [facility] [address] [id number] [address] [place] [phone] Dec, Chronic obstructive pulmonar y disease, unspecified J44.9 [facility] [address] [id number] [address] [place] [phone] Dec, [facility] [address] [id number] [address] [place] [phone] Dec, Mild persistent asthma witho sd complication J45.30 and Other chronic pain G89.29 [facility] [address] [id number] [address] [place] [phone] Nov, [facility] [address] [id number] [address] [place] [phone] Nov, Acute non-recurrent maxillar y sinusitis J01.00 [facility] [address] [id number] [address] [place] [phone] Nov, [facility] [address] [id number] [address] [place] [phone] Nov, [facility] [address] [facility] [id number] [address] [place] [phone] Oct, [facility] [address] [facility] [id number] [address] [place] [phone] Oct, Bipolar 1 disorder, depresse d, partial remission F31.75 ; Panic disorder with agoraphobia F40.01 and Chronic post-traumatic stress disorder (PTSD) F43.12 [facility] [address] [id number] [address] [place] [phone] 29 Oct, 2016 Acute non-recurrent maxillar y sinusitis J01.00 [facility] [address] [id number] [address] [place] [phone] Oct, [facility] [address] [facility] [id number] [address] [place] [phone] Oct, Diabetes E11.9 [facility] [address] [id number] [address] [place] [phone] September, Diabetes E11.9 [facility] [address] [facility] [id number] [address] [place] [phone] September, Diabetes E11.9 and Sinus tac hycardia R00.0 [facility] [address] [facility] [id number] [address] [place] [phone] September, [facility] [address] [facility] [id number] [address] [place] [phone] September, [facility] [address] [facility] [id number] [address] [place] [phone] Aug, Diabetes E11.9 and Lumbago w ith sciatica, right side M54.41 [facility] [address] [facility] [id number] [address] [place] [phone] Aug, [facility] [address] [facility] [id number] [address] [place] [phone] Jul, Bipolar 1 disorder, depresse d, moderate F31.32 ; Panic disorder with agoraphobia F40.01 and Chronic post-traumatic stress disorder (PTSD) F43.12 [facility] [address] [facility] [id number] [address] [place] [phone] Jul, Sore throat J02.9 [facility] [address] [facility] [id number] [address] [place] [phone] Jul, [facility] [address] [facility] [id number] [address] [place] [phone] Jul, [facility] [address] [id number] [address] [place] [phone] Jul, [facility] [address] [id number] [address] [place] [phone] Jul, [facility] [address] [id number] [address] [place] [phone] Jul, Sore throat J02.9 and Pharyn gitis, unspecified etiology J02.9 [facility] [address] [id number] [address] [place] [phone] Jun, [facility] [address] [id number] [address] [place] [phone] Jun, Diabetes E11.9 [facility] [address] [id number] [address] [place] [phone] Jun, [facility] [address] [id number] [address] [place] [phone] Jun, [facility] [address] [id number] [address] [place] [phone] Jun, [facility] [address] [id number] [address] [place] [phone] Jun, [facility] [address] [id number] [address] [place] [phone] Jun, [facility] [address] [id number] [address] [place] [phone] 15 Jun, 2016 [facility] [address] [id number] [address] [place] [phone] Jun, [facility] [address] [id number] [address] [place] [phone] Jun, [facility] [address] [id number] [address] [place] [phone] May, Diabetes E11.9 ; Other chron ic pain G89.29 ; Acute recurrent maxillary sinusitis J01.01 ; Bipolar I disorder with depression F31.9 and Anxiety disorder, unspecified F41.9 [place] [address] [facility] [id number] [address] [place] [phone] May, [place] [address] [facility] [id number] [address] [place] [phone] May, Diabetes E11.9 ; Bipolar I d isorder with depression F31.9 ; Anxiety disorder, unspecified F41.9 ; Other chronic pain G89.29 and Acute recurrent maxillary sinusitis J01.01 [place] [address] [facility] [id number] [place] [phone] May, [place] [address] [facility] [id number] [address] [place] [phone] May, Attention deficit hyperactiv ity disorder (ADHD), predominantly inattentive type F90.0 [place] [address] [place] [id number] [address] [place] [phone] May, [place] [address] [phone] Apr, Attention deficit hyperactiv ity disorder (ADHD), predominantly inattentive type F90.0 and Non-seasonal allergic rhinitis due to other allergic trigger J30.89 [place] [address] [place] [id number] [address] [place] [phone] Apr, Bipolar 1 disorder, depresse d, moderate F31.32 ; Panic disorder with agoraphobia F40.01 and Chronic post-traumatic stress disorder (PTSD) F43.12 [place] [id number] [place] [phone] Apr, Dental examination Z01.20 [place] [address] [facility] [id number] [address] [place] [phone] Mar, [place] [address] [place] [id number] [place] [phone] Mar, [facility] [address] [id number] [address] [place] [phone] Mar, Bipolar I disorder with depr ession F31.9 and Anxiety disorder, unspecified F41.9 [facility] [address] [id number] [address] [place] [phone] 08 Mar, 2016 Panic disorder with agorapho syd F40.01 ; Bipolar 1 disorder, depressed, moderate F31.32 and Chronic post-traumatic stress disorder (PTSD) F43.12 [facility] [address] [id number] [address] [place] [phone] Mar, [facility] [address] [id number] [address] [place] [phone] Mar, Dental caries K02.9 [facility] [address] [id number] [address] [place] [phone] 24 Feb, 2016 Lumbago with sciatica, left side M54.42 ; Lumbago with sciatica, right side M54.41 and Other chronic pain G89.29 [facility] [address] [id number] [address] [place] [phone] Feb, [facility] [address] [id number] [address] [place] [phone] 14 Feb, 2016 [facility] [address] [id number] [address] [place] [phone] 13 Feb, 2016 Bipolar I disorder with depr ession F31.9 ; PTSD (post-traumatic stress disorder) F43.10 and Mood disorder F39 [facility] [address] [id number] [address] [place] [phone] Feb, [facility] [address] [id number] [address] [place] [phone] 11 Feb, 2016 Dental examination Z01.20 [facility] [address] [id number] [address] [place] [phone] 07 Feb, 2016 [facility] [address] [place] [id number] [address] [place] [phone] Feb, Acute bronchitis, unspecifie d organism J20.9 [facility] [address] [place] [id number] [address] [place] [phone] Jan, Mood disorder F39 ; Migraine without aura and without status migrainosus, not intractable G43.009 ; Irritable bowel syndrome, unspecified type K58.9 ; Diabetes E11.9 and Encounter for immunization Z23 [facility] [address] [phone] Jan, [facility] [address] [phone] Jan, [facility] [address] [phone] Jan, [facility] [address] [phone] Jan, [facility] [address] [address] Jan, [facility] [address] [phone] Dec, Bipolar I disorder with depr ession F31.9 ; PTSD (post-traumatic stress disorder) F43.10 and Panic disorder with agoraphobia F40.01 [facility] [address] [phone] Dec, Chronic obstructive pulmonar y disease, unspecified COPD type J44.9 ; Tremor R25.1 and Anxiety F41.9 [facility] [address] [phone] Dec, [facility] [address] [phone] Nov, Tremors of nervous system R2 5.1 and Cramping of feet R25.2 [place] [address] [place] [id number] [address] [place] [phone] Nov, [facility] [address] [facility] [id number] [address] [place] [phone] Nov, [facility] [address] [facility] [id number] [address] [place] [phone] Oct, Chronic obstructive pulmonar y disease, unspecified J44.9 [facility] [address] [facility] [id number] [address] [place] [phone] Oct, [facility] [address] [facility] [id number] [address] [place] [phone] Oct, Tremor R25.1 [facility] [address] [facility] [id number] [address] [place] [phone] Oct, Bipolar I disorder with depr ession F31.9 ; Diabetes E11.9 ; PTSD (post-traumatic stress disorder) F43.10 and Panic disorder with agoraphobia F40.01 [facility] [address] [facility] [id number] [address] [place] [id number] Oct, Mood disorder F39 [facility] [address] [facility] [id number] [address] [place] [phone] September, [facility] [address] [facility] [id number] [address] [place] [phone] September, Diabetes E11.9 ; Bipolar I d isorder with depression F31.9 ; PTSD (post-traumatic stress disorder) F43.10 and Panic disorder with agoraphobia F40.01 [facility] [address] [facility] [id number] [address] [place] [phone] September, Mood disorder F39 ; Schizoaf fective disorder, unspecified type F25.9 ; Arthritis M19.90 ; Tremor R25.1 ; Acute non-recurrent frontal sinusitis J01.10 and Blood in stool K92.1 [facility] [address] [facility] [id number] [address] [place] [phone] September, [facility] [address] [id number] [address] [place] [phone] September, Chronic obstructive pulmonar y disease, unspecified J44.9 [facility] [address] [id number] [address] [place] [phone] September, Diabetes E11.9 [facility] [address] [id number] [address] [place] [phone] Aug, Other bipolar disorder F31.8 9 and Anxiety disorder, unspecified F41.9 [facility] [address] [id number] [address] [place] [phone] Aug, [facility] [address] [id number] [address] [place] [phone] Aug, Diabetes E11.9 [facility] [address] [id number] [address] [place] [phone] Aug, [facility] [address] [id number] [address] [place] [phone] Aug, Diabetes E11.9 ; Fatigue R53 .83 and Dizziness R42 [facility] [address] [id number] [address] [place] [phone] Aug, Other bipolar disorder F31.8 9 [facility] [address] [id number] [address] [place] [phone] Aug, Generalized anxiety disorder F41.1 [facility] [address] [id number] [address] [place] [phone] Aug, Other bipolar disorder F31.8 9 and Anxiety disorder, unspecified F41.9 [facility] [address] [id number] [address] [place] [phone] Aug, [facility] [address] [id number] [address] [place] [phone] Jul, [facility] [address] [facility] [id number] [address] [place] [phone] Jul, [facility] [address] [facility] [id number] [address] [place] [id number] Jul, Bronchitis J40 [facility] [address] [facility] [id number] [address] [place] [phone] Jul, Anxiety disorder F41.9 [facility] [address] [facility] [id number] [address] [place] [id number] Jul, Other bipolar disorder F31.8 9 and Anxiety disorder, unspecified F41.9 [facility] [address] [facility] [id number] [address] [place] [phone] Jul, Other bipolar disorder F31.8 9 and Fibromyalgia M79.7 [facility] [address] [facility] [id number] [address] [place] [phone] Jul, [facility] [address] [place] [id number] [address] [place] [id number] Jul, [facility] [address] [facility] [id number] [address] [place] [phone] Jul, [facility] [address] [facility] [id number] [address] [place] [phone] Jul, Other bipolar disorder F31.8 9 and Anxiety disorder, unspecified F41.9 [facility] [address] [place] [id number] [address] [place] [id number] Jun, GERD (gastroesophageal reflu x disease) K21.9 [facility] [address] [facility] [id number] [address] [place] [phone] Jun, [facility] [address] [facility] [id number] [address] [place] [address] [place] [phone] May, [facility] [address] [id number] [address] [place] [phone] May, Diabetes E11.9 ; Back pain M 54.9 ; GERD (gastroesophageal reflux disease) K21.9 ; Hypertension I10 and Peripheral neuropathy G62.9 [facility] [address] [id number] [address] [place] [phone] Mar, [facility] [address] [id number] [address] [place] [phone] Mar, [facility] [address] [facility] [id number] [address] [place] [phone] Mar, Acute sinusitis J01.90 and O titis media, left H66.92 [facility] [address] [id number] [address] [place] [phone] Feb, [facility] [address] [id number] [address] [place] [phone] Feb, [facility] [address] [facility] [id number] [address] [place] [phone] Feb, [facility] [address] [facility] [id number] [address] [place] [phone] Feb, [facility] [address] [id number] [address] [place] [phone] Jan, [facility] [address] [id number] [address] [place] [phone] Jan, Diabetes 250.00 and Back higinio n 724.5 [facility] [address] [facility] [id number] [address] [place] [phone] Jan, [facility] [address] [facility] [id number] [address] [place] [phone] Dec, Diabetes 250.00 ; Benign ess ential hypertension 401.1 and Allergic rhinitis 477.9 [facility] [address] [id number] [address] [place] [phone] Dec, [facility] [address] [facility] [id number] [address] [place] [phone] Dec, [facility] [address] [facility] [id number] [address] [place] [phone] Dec, Psychosis 298.9 [facility] [address] [facility] [id number] [address] [place] [phone] Dec, Medication side effect 995.2 0 and Generalized anxiety disorder 300.02 [facility] [address] [facility] [id number] [address] [place] [phone] Dec, Acquired cognitive dysfuncti on 294.9 [facility] [address] [facility] [id number] [address] [place] [phone] Dec, [facility] [address] [facility] [id number] [address] [place] [phone] Dec, Unspecified myalgia and myos itis 729.1 and Generalized anxiety disorder 300.02 [facility] [address] [facility] [id number] [address] [place] [phone] Nov, [facility] [address] [facility] [id number] [address] [place] [phone] Nov, [facility] [address] [facility] [id number] [address] [place] [phone] Nov, [facility] [address] [facility] [id number] [address] [place] [phone] Nov, Upper respiratory infection 465.9 and Chronic airway obstruction, not elsewhere classified 496 [facility] [address] [facility] [id number] [address] [place] [phone] Nov, Hyponatremia 276.1 [facility] [address] [facility] [id number] [address] [place] [phone] Oct, [facility] [address] [facility] [id number] [address] [place] [phone] Oct, [facility] [address] [facility] [id number] [address] [place] [phone] Oct, [facility] [address] [facility] [id number] [address] [place] [phone] Oct, [facility] [address] [facility] [id number] [address] [place] [phone] Oct, Hyponatremia 276.1 [facility] [address] [id number] [address] [place] [phone] Oct, [facility] [address] [id number] [address] [place] [phone] Oct, [facility] [address] [id number] [address] [place] [phone] Oct, Generalized anxiety disorder 300.02 [facility] [address] [id number] [address] [place] [phone] Oct, Generalized anxiety disorder 300.02 and Diabetes 250.00 [facility] [address] [id number] [address] [place] [phone] Aug, [facility] [address] [facility] [id number] [address] [place] [phone] Aug, [facility] [address] [id number] [address] [place] [phone] Jul, [facility] [address] [id number] [address] [place] [phone] Jul, [facility] [address] [id number] [address] [place] [phone] Jun, [facility] [address] [id number] [address] [place] [phone] Jun, [facility] [address] [id number] [address] [place] [phone] Jun, [facility] [address] [id number] [address] [place] [phone] Jun, [facility] [address] [id number] [address] [place] [phone] Jun, [facility] [address] [id number] [address] [place] [phone] May, [facility] [address] [id number] [address] [place] [address] [place] [phone] May, [facility] [address] [id number] [address] [place] [address], [place] [phone] Apr, [facility] [address] [id number] [address] [place] [address], [place] [phone] Apr, [facility] [address] [id number] [address] [place] [address], [place] [phone] Apr, [facility] [address] [id number] [address] [place] [address], [place] [phone] Apr, [facility] [address] [id number] [address] [place] [address], [place] [phone] Apr, [facility] [address] [id number] [address] [place] [address], [place] [phone] Apr, [facility] [address] [id number] [address] [place] [address], [place] [phone] Apr, [facility] [address] [id number] [address] [place] [address], [place] [phone] Apr, [facility] [address] [id number] [address] [place] [address], [place] [phone] Feb, [facility] [address] [id number] [address] [place] [address], [place] [phone] Feb, [facility] [address] [id number] [address] [place] [address], [place] [id number] Jan, [facility] [address] [id number] [address] [place] [address], [place] [id number] Jan, [facility] [address] [id number] [address] [place] [address], [place] [phone] Dec, [facility] [address] [id number] [address] [place] [address], [place] [phone] Dec, [facility] [address] [id number] [address] [place] [address], [place] [phone] Dec, [facility] [address] [id number] [address] [place] [address], [place] [phone] Nov, [facility] [address] [id number] [address] [place] [address], [place] [phone] Nov, [facility] [address] [id number] [address] [place] [address], [place] [id number] Nov, [facility] [address] [id number] [address] [place] [address], [place] [phone] Oct, [facility] [address] [id number] [address] [place] [address], [place] [phone] Oct, [facility] [address] [id number] [address] [place] [address], [place] [id number] Oct, [facility] [address] [id number] [address] [place] [address], [place] [phone] September, [facility] [address] [id number] [address] [place] [address], [place] [phone] September, [facility] [address] [id number] [address] [place] [address], [place] [phone] September, [facility] [address] [id number] [address] [place] [address], [place] [phone] Aug, [facility] [address] [id number] [address] [place] [address], [place] [phone] Aug, [facility] [address] [id number] [address] [place] [address], [place] [phone] Aug, [facility] [address] [id number] [address] [place] [address], [place] [phone] 16 Aug, 2011 [facility] [address] [id number] [address] [place] [address], [place] [id number] Jul, [facility] [address] [id number] [address] [place] [address], [place] [phone] Jun, [facility] [address] [id number] [address] [place] [address], [place] [id number] 14 Jun, 2011 [facility] [address] [id number] [address] [place] [address], [place] [phone] 13 Jun, 2011 [facility] [address] [id number] [address] [place] [address], [place] [phone] 07 Jun, 2011 [facility] [address] [id number] [address] [place] [address], [place] [id number] 03 Jun, 2011 [facility] [address] [id number] [address] [place] [phone] 13 May, 2011 [facility] [address] [id number] [address] [place] [address], [place] [phone] May, [facility] [address] [id number] [address] [place] [address], [place] [id number] May, [facility] [address] [id number] [address] [place] [address], [place] [phone] May, [facility] [address] [id number] [address] [place] [address], [place] [phone] Apr, [facility] [address] [id number] [address] [place] [address], [place] [phone] Apr, [facility] [address] [id number] [address] [place] [address], [place] [id number] Apr, [facility] [address] [id number] [address] [place] [phone] Mar, [facility] [address] [id number] [address] [place] [phone] Mar, [facility] [address] [id number] [address] [place] [phone] Mar, [facility] [address] [id number] [address] [place] [phone] 13 Feb, 2011 [facility] [address] [id number] [address] [place] [address], [place] [phone] 13 Feb, 2011 [facility] [address] [id number] [address] [place] [phone] 13 Feb, 2011 [facility] [address] [id number] [address] [place] [phone] 11 Nov, 2010 [facility] [address] [id number] [address] [place] [phone] 16 Sep, 2010 [facility] [address] [id number] [address] [place] [phone] Aug, [facility] [address] [id number] [address] [place] [phone] Jul, [facility] [address] [id number] [address] [place] [phone] May, [facility] [address] [id number] [address] [place] [phone] Apr, [facility] [address] [id number] [address] [place] [phone] 30 Apr, 2010 [facility] [address] [id number] [address] [place] [phone] Apr, [facility] [address] [id number] [address] [place] [phone] Apr, [facility] [address] [id number] [address] [place] [phone] Apr, IMMUNIZATIONS No Known Immunizations SOCIAL HISTORY [...]
--- OUTSIDE RECORDS SUMMARY | 2019-07-17 10:40 | XMS REPORT ---
Author Author Sujey Lira [facility] Address [address] [place] [address] Care Team Providers Care Rigger Third Name Role Phone SHANA Lira Unavailable PROBLEMS Type Condition ICD9-CM Code NKV19-SY Code Onset Dates Condition S tatus SNOMED Code Problem Bipolar 1 disorder, depressed, moderate F31.32 Active 66151740 Problem Bipolar affective disorder, remission status unspecified F31.9 Active 04651976 Problem Chronic post-traumatic stress disorder (PTSD) F43. 12 Active 492291730 Problem Bipolar I disorder with depression F31.9 Active 46797479 Problem Attention deficit hyperactiv ity disorder (ADHD), predominantly inattentive type F90.0 Active 52010298 Problem Bipolar 1 disorder, depressed, partial remission F 31.75 Active 73400486 Problem Acute non-recurrent maxillary sinusitis J01.00 Active 61523500 Problem Slow transit constipation K59.01 Acti ve 19383072 Problem Lumbago with sciatica, left side M54.42 Active 725102105 Problem Essential tremor G25.0 Active 609 531961 Problem Chronic obstructive pulmonary disease, unspecified J44.9 Active 00514804 Problem Other chronic pain G89.29 Active 8 4711508 Problem Lumbago with sciatica, right side M54.41 Active 052438722 Problem Migraine without aura and without status migrain osus, not intractable G43.009 Active 984450988 Problem Akathisia G25.71 Active 407285742 Problem Fibrocystic disease of right breast N60.11 Active 42169549 Problem Back pain M54.9 Active 617491842 Problem Fibrocystic disease of left breast N60.12 Active 49850147 Problem Hypertension I10 Active 9677818 3 Problem Irritable bowel syndrome with constipation K58.1 Active 874325451 Problem Other bipolar disorder F31.89 Active 78198209 Problem Arthritis M19.90 Active 2126155 Problem Anxiety disorder, unspecified F41.9 Active 269201723 Problem Schizoaffective disorder, bipolar type F25.0 Active 80495937 Problem Panic disorder with agoraphobia F40.01 Active 33081303 Problem Irritable bowel syndrome with both constipation and diarrh ea K58.2 Active 81403041 Problem Fibromyalgia M79.7 Active 0061844 7 Problem Daytime somnolence R40.0 Active 1 61322688309 Problem Abnormal mammogram of right breast R92.8 Active 022811923 Problem Tinnitus of right ear H93.11 Active 24490995 Problem Diffuse cystic mastopathy of right breast N60.11 Active 21640280 Problem Moderate persistent asthma without complication J4 5.40 Active 756394932 Problem Hemiplegia and hemiparesis f ollowing unspecified cerebrovascular disease affecting right dominant side I69.951 Active 032211350 Problem Mild persistent asthma without complication J45.30 Active 767215511 Problem GERD (gastroesophageal reflux disease) K21.9 Active 340079205 Problem Panlobular emphysema J43.1 Active 9060512 Problem Tinnitus of both ears H93.13 Active 8589268827476 Problem Contracture, left hand M24.542 Active [id number] Problem Diabetes E11.9 Active 49547647 Problem Mood disorder F39 Active 256403 05 Problem Diffuse cystic mastopathy of left breast N60.12 Active 87184994 ALLERGIES No Information ENCOUNTERS Encounter Location Date Diagnosis [place] [address] [facility] [id number] [address] [place] [address] Dec, [place] [address] [facility] [id number] [address] [place] [address] Nov, Hip pain, left M25.552 [facility] [address] [facility] [id number] [address] [place] [address] Nov, [facility] [address] [facility] [id number] [address] [place] [address] Nov, [place] [address] [facility] [id number] [address] [place] [address] Nov, Hemiplegia and hemiparesis f ollowing unspecified cerebrovascular disease affecting right dominant side I69.951 ; Diabetes E11.9 ; Daytime somnolence R40.0 and Other chronic pain G89.29 [facility] [address] [id number] [address] [place] [address] Nov, [facility] [address] [id number] [address] [place] [address] Nov, [facility] [address] [id number] [address] [place] [address] Nov, Hemiplegia and hemiparesis f ollowing unspecified cerebrovascular disease affecting right dominant side I69.951 ; Lower leg edema R60.0 and Plantar fasciitis, bilateral M72.2 [facility] [address] [id number] [address] [place] [address] Oct, [facility] [address] [id number] [address] [place] [address] Oct, Daytime somnolence R40.0 ; D iabetes E11.9 and Other chronic pain G89.29 [facility] [address] [id number] [address] [place] [address] Oct, Edema, lower extremity R60.0 and Hip pain, left M25.552 [facility] [address] [id number] [address] [place] [address] Oct, [facility] [address] [id number] [address] [place] [address] September, [facility] [address] [id number] [address] [place] [address] September, Diabetes E11.9 and Other chr onic pain G89.29 [facility] [address] [id number] [address] [place] [address] September, Diabetes E11.9 and Other chr onic pain G89.29 [facility] [address] [id number] [address] [place] [address] September, [facility] [address] [id number] [address] [place] [address] Aug, [facility] [address] [id number] [address] [place] [address] Aug, Hypertension I10 [facility] [address] [facility] [id number] [address] [place] [address] Aug, [facility] [address] [facility] [id number] [address] [place] [address] Aug, [place] [address] [facility] [id number] [address] [place] [address] Aug, Diabetes E11.9 and Edema of both legs R60.0 [place] [address] [facility] [id number] [address] [place] [address] Aug, Panic disorder with agorapho syd F40.01 ; Other chronic pain G89.29 and Daytime somnolence R40.0 [place] [address] [facility] [id number] [address] [place] [address] Jul, [place] [address] [facility] [id number] [address] [place] [address] Jul, [place] [address] [facility] [id number] [address] [place] [address] Jul, Diffuse cystic mastopathy of left breast N60.12 and Diffuse cystic mastopathy of right breast N60.11 [place] [address] [facility] [id number] [address] [place] [address] Jul, Fibrocystic disease of right breast N60.11 [place] [address] [facility] [id number] [address] [place] [address] Jul, Fibrocystic disease of right breast N60.11 and Fibrocystic disease of left breast N60.12 [place] [address] [facility] [id number] [address] [place] [address] Jul, Encounter for Medicare annua l wellness exam Z00.00 ; Schizoaffective disorder, bipolar type F25.0 ; Chronic obstructive pulmonary disease, unspecified J44.9 ; Fibromyalgia M79.7 and Acute non-recurrent maxillary sinusitis J01.00 [facility] [address] [facility] [id number] [address] [place] [address] 14 Jul, 2018 Daytime somnolence R40.0 [facility] [address] [id number] [address] [place] [address] 14 Jul, 2018 [facility] [address] [facility] [id number] [address] [place] [address] Jul, [facility] [address] [id number] [address] [place] [address] Jul, Panic disorder with agorapho syd F40.01 ; Anxiety disorder, unspecified F41.9 ; Other chronic pain G89.29 and Daytime somnolence R40.0 [facility] [address] [facility] [id number] [address] [place] [address] Jul, [facility] [address] [facility] [id number] [address] [place] [address] Jun, [facility] [address] [facility] [id number] [address] [place] [address] Jun, Hip pain, left M25.552 ; Leg pain, left M79.605 ; Lumbar pain M54.5 and Mood disorder F39 [facility] [address] [facility] [id number] [address] [place] [address] Jun, Diabetes E11.9 ; Other chron ic pain G89.29 and Anxiety disorder, unspecified F41.9 [facility] [address] [facility] [id number] [address] [place] [address] Jun, Hip pain, left M25.552 ; Leg pain, left M79.605 ; Lumbar pain M54.5 and Mood disorder F39 [facility] [address] [facility] [id number] [address] [place] [address] May, Diabetes E11.9 [facility] [address] [id number] [address] [place] [address] May, [facility] [address] [id number] [address] [place] [address] May, Other chronic pain G89.29 an d Anxiety disorder, unspecified F41.9 [place] [address] [id number] [address] [place] [address] May, [facility] [address] [facility] [id number] [address] [place] [address] May, [place] [address] [facility] [id number] [address] [place] [address] May, Tinnitus of right ear H93.11 [place] [address] [facility] [id number] [address] [place] [address] May, Diabetes E11.9 ; Tinnitus of both ears H93.13 ; Contracture, left hand M24.542 and Family history of rheumatic joint disease Z82.69 [place] [address] [id number] [address] [place] [address] Apr, [place] [address] [facility] [id number] [address] [place] [address] Apr, [place] [address] [facility] [id number] [address] [place] [address] Apr, Tinnitus of right ear H93.11 and Hypertension I10 [place] [address] [id number] [address] [place] [address] Apr, Other chronic pain G89.29 ; Daytime somnolence R40.0 and Anxiety disorder, unspecified F41.9 [place] [address] [facility] [id number] [address] [place] [address] Apr, [place] [address] [facility] [id number] [address] [place] [address] Apr, [place] [address] [place] [id number] [address] [place] [address] Mar, Tinnitus of right ear H93.11 [facility] [address] [facility] [id number] [address] [place] [address] Mar, [facility] [address] [facility] [id number] [address] [place] [address] Mar, Anxiety disorder, unspecifie d F41.9 ; Other chronic pain G89.29 and Daytime somnolence R40.0 [facility] [address] [id number] [address] [place] [address] Mar, Irritable bowel syndrome wit h both constipation and diarrhea K58.2 [facility] [address] [facility] [id number] [address] [place] [address] Mar, [facility] [address] [facility] [id number] [address] [place] [address] Mar, Hypertension I10 [facility] [address] [place] [id number] [address] [place] [address] Mar, [facility] [address] [facility] [id number] [address] [place] [address] Mar, [facility] [address] [place] [id number] [address] [place] [address] Mar, [facility] [address] [place] [id number] [address] [place] [address] Mar, Diabetes E11.9 [facility] [address] [facility] [id number] [address] [place] [address] Mar, [facility] [address] [facility] [id number] [address] [place] [address] Feb, Daytime somnolence R40.0 and Anxiety disorder, unspecified F41.9 [facility] [address] [facility] [id number] [address] [place] [address] Feb, [facility] [address] [facility] [id number] [address] [place] [address] Feb, [facility] [address] [facility] [id number] [address] [place] [address] Feb, Tremors of nervous system R2 5.1 and Acute swimmer''s ear of right side H60.331 [facility] [address] [facility] [id number] [address] [place] [address] Feb, Cerebrovascular accident (CV A) due to occlusion of right cerebellar artery I63.541 and Hypertension I10 [facility] [address] [facility] [id number] [address] [place] [address] Feb, [place] [address] [facility] [id number] [address] [place] [address] Feb, Cerebrovascular accident (CV A) due to occlusion of right cerebellar artery I63.541 [place] [address] [facility] [id number] [place] [id number] Feb, Hyponatremia E87.1 [place] [address] [facility] [id number] [address] [place] [address] Feb, [place] [address] [facility] [id number] [address] [place] [address] Feb, Daytime somnolence R40.0 [place] [address] [facility] [id number] [address] [place] [address] Feb, [place] [address] [facility] [id number] [address] [place] [address] Jan, [place] [address] [facility] [id number] [address] [place] [address] Jan, [place] [address] [facility] [id number] [address] [place] [address] Jan, Chronic obstructive pulmonar y disease, unspecified J44.9 and Anxiety disorder, unspecified F41.9 [place] [address] [facility] [id number] [address] [place] [address] Jan, Hypertension I10 ; Fibromyal medhat M79.7 and Lumbago with sciatica, left side M54.42 [facility] [address] [id number] [address] [place] [address] 26 Jan, 2018 [facility] [address] [facility] [id number] [address] [place] [address] 20 Jan, 2018 Cerebrovascular accident (CV A) due to occlusion of right cerebellar artery I63.541 [facility] [address] [facility] [id number] [address] [place] [address] 19 Jan, 2018 [facility] [address] [id number] [address] [place] [address] 13 Jan, 2018 Arthritis M19.90 [place] [address] [facility] [id number] [address] [place] [address] 07 Jan, 2018 [place] [address] [place] [id number] [address] [place] [address] 04 Jan, 2018 Abnormal mammogram of right breast R92.8 [place] [address] [place] [id number] [address] [place] [address] Dec, Daytime somnolence R40.0 and Right otitis media with effusion H65.91 [place] [address] [facility] [id number] [address] [place] [address] Dec, [place] [address] [place] [id number] [address] [place] [address] Dec, Cerebrovascular accident (CV A) due to occlusion of right cerebellar artery I63.541 [facility] [address] [facility] [id number] [address] [place] [address] Dec, [place] [address] [facility] [id number] [address] [place] [address] Dec, [place] [address] [place] [id number] [address] [place] [address] Nov, Bipolar 1 disorder, depresse d, partial remission F31.75 and Panic disorder with agoraphobia F40.01 [place] [address] [place] [id number] [address] [place] [address] Nov, Panlobular emphysema J43.1 [facility] [address] [id number] [address] [place] [address] Nov, Cerebrovascular accident (CV A) due to occlusion of right cerebellar artery I63.541 and Acute non-recurrent maxillary sinusitis J01.00 [facility] [address] [id number] [address] [place] [address] Nov, Panlobular emphysema J43.1 [facility] [address] [id number] [address] [place] [address] Nov, [facility] [address] [id number] [address] [place] [address] Nov, [facility] [address] [id number] [address] [place] [address] Nov, [facility] [address] [id number] [address] [place] [address] Nov, [facility] [address] [id number] [address] [place] [address] Nov, [facility] [address] [id number] [address] [place] [address] Nov, [facility] [address] [id number] [address] [place] [address] Nov, [facility] [address] [id number] [address] [place] [address] Nov, Mild persistent asthma witho ut complication J45.30 and Irritable bowel syndrome with both constipation and diarrhea K58.2 [facility] [address] [id number] [address] [place] [address] Nov, [facility] [address] [id number] [address] [place] [address] Oct, [facility] [address] [id number] [address] [place] [address] Oct, [facility] [address] [id number] [address] [place] [address] Oct, Type 2 diabetes mellitus wit h diabetic neuropathy, unspecified whether alf insulin use E11.40 ; Diabetes E11.9 ; Slow transit constipation K59.01 ; Edema of both legs R60.0 and Dysfunction of right eustachian tube H69.81 [facility] [address] [id number] [address] [place] [address] Oct, Frequent headaches R51 [facility] [address] [id number] [address] [place] [address] Oct, [facility] [address] [id number] [address] [place] [address] Oct, [facility] [address] [id number] [address] [place] [address] Oct, [facility] [address] [id number] [address] [place] [address] Oct, [facility] [address] [id number] [address] [place] [address] Oct, [facility] [address] [facility] [id number] [address] [place] [address] Oct, [facility] [address] [id number] [address] [place] [address] Oct, [facility] [address] [facility] [id number] [address] [place] [address] Oct, [facility] [address] [id number] [address] [place] [address] September, Frequent headaches R51 [facility] [address] [facility] [id number] [address] [place] [address] September, Bilateral otitis media with effusion H65.93 ; Dizziness R42 and Essential tremor G25.0 [facility] [address] [id number] [address] [place] [address] September, Chronic obstructive pulmonar y disease, unspecified COPD type J44.9 [facility] [address] [id number] [address] [place] [address] September, Chronic obstructive pulmonar y disease, unspecified COPD type J44.9 [facility] [address] [facility] [id number] [address] [place] [address] September, Migraine without aura and wi thout status migrainosus, not intractable G43.009 [facility] [address] [id number] [address] [place] [address] September, [facility] [address] [facility] [id number] [address] [place] [address] September, [facility] [address] [facility] [id number] [address] [place] [address] September, [facility] [address] [facility] [id number] [address] [place] [address] September, Frequent headaches R51 [facility] [address] [id number] [address] [place] [address] Aug, [facility] [address] [facility] [id number] [address] [place] [address] Aug, Breast mass, right N63.10 [facility] [address] [facility] [id number] [address] [place] [id number] Aug, Breast lump N63.0 [facility] [address] [id number] [address] [place] [id number] Aug, [facility] [address] [facility] [id number] [address] [place] [id number] Aug, Bipolar affective disorder, remission status unspecified F31.9 and Diabetes E11.9 [facility] [address] [facility] [id number] [address] [place] [id number] Aug, Diabetes E11.9 ; Schizoaffec tive disorder, bipolar type F25.0 ; Pharyngitis due to other organism J02.8 ; Panlobular emphysema J43.1 and Irritable bowel syndrome with both constipation and diarrhea K58.2 [facility] [address] [id number] [address] [place] [id number] Aug, Abnormal mammogram R92.8 [facility] [address] [id number] [address] [place] [id number] Aug, [facility] [address] [id number] [address] [place] [phone] Aug, Bipolar 1 disorder, depresse d, moderate F31.32 ; Panic disorder with agoraphobia F40.01 and Chronic post-traumatic stress disorder (PTSD) F43.12 [facility] [address] [id number] [address] [place] [id number] Aug, [facility] [address] [id number] [address] [place] [id number] Aug, [facility] [address] [id number] [address] [place] [address] Aug, [place] [address] [id number] [address] [place] [address] Jul, [place] [address] [id number] [address] [place] [address] Jul, Mild persistent asthma witho ut complication J45.30 [place] [address] [id number] [address] [place] [address] Jul, Mild persistent asthma witho ut complication J45.30 [place] [address] [id number] [address] [place] [address] Jul, Bipolar affective disorder, remission status unspecified F31.9 ; Diabetes E11.9 and Irritable bowel syndrome with constipation K58.1 [place] [address] [id number] [address] [place] [address] Jul, [place] [address] [id number] [address] [place] [address] Jul, [facility] [address] [id number] [address] [place] [address] Jul, Frequent headaches R51 [facility] [address] [id number] [address] [place] [address] Jul, [facility] [address] [id number] [address] [place] [address] Jul, [facility] [address] [id number] [address] [place] [address] Jul, [facility] [address] [id number] [address] [place] [address] Jul, Frequent headaches R51 ; Fib rocystic disease of left breast N60.12 ; Fibrocystic disease of right breast N60.11 and Diabetes E11.9 [place] [address] [place] [id number] [address] [place] [address] Jul, [facility] [address] [id number] [address] [place] [address] Jul, [place] [address] [place] [id number] [address] [place] [address] Jun, Exudative tonsillitis J03.90 [place] [id number] [place] [address] Jun, [place] [address] [place] [id number] [address] [place] [address] 19 Jun, [address] [place] [address] [facility] [id number] [address] [place] [address] 15 Jun, 2017 Mild persistent asthma witho ut complication J45.30 ; Chronic obstructive pulmonary disease, unspecified COPD type J44.9 and Exudative tonsillitis J03.90 [place] [address] [place] [id number] [address] [place] [address] 13 Jun, 2017 Encounter for immunization Z 23 [place] [address] [place] [id number] [address] [place] [address] Jun, [facility] [address] [facility] [id number] [address] [place] [address] Jun, [facility] [address] [facility] [id number] [address] [place] [address] Jun, [facility] [address] [facility] [id number] [address] [place] [address] Jun, Tonsillitis J03.90 [facility] [address] [facility] [id number] [address] [place] [address] Jun, [facility] [address] [facility] [id number] [address] [place] [phone] Jun, Acute non-recurrent maxillar y sinusitis J01.00 [facility] [address] [facility] [id number] [address] [place] [address] Jun, [facility] [address] [facility] [id number] [address] [place] [address] May, [facility] [address] [place] [id number] [address] [place] [address] May, [facility] [address] [facility] [id number] [address] [place] [address] May, GERD (gastroesophageal reflu x disease) K21.9 [facility] [address] [facility] [id number] [address] [place] [address] May, Migraine without aura and wi thout status migrainosus, not intractable G43.009 [facility] [address] [facility] [id number] [address] [place] [address] May, [facility] [address] [facility] [id number] [address] [place] [address] May, [facility] [address] [facility] [id number] [address] [place] [address] May, Panlobular emphysema J43.1 a nd Acute non-recurrent maxillary sinusitis J01.00 [facility] [address] [id number] [address] [place] [address] May, Bipolar 1 disorder, depresse d, moderate F31.32 ; Panic disorder with agoraphobia F40.01 and Akathisia G25.71 [facility] [address] [id number] [address] [place] [address] Apr, [facility] [address] [facility] [id number] [address] [place] [address] Apr, [facility] [address] [facility] [id number] [address] [place] [address] Apr, Acute non-recurrent maxillar y sinusitis J01.00 [facility] [address] [facility] [id number] [address] [place] [address] Apr, Panlobular emphysema J43.1 [facility] [address] [facility] [id number] [address] [place] [address] Apr, [facility] [address] [facility] [id number] [address] [place] [address] Apr, Exudative tonsillitis J03.90 and Sore throat J02.9 [facility] [address] [facility] [id number] [address] [place] [address] Mar, [facility] [address] [facility] [id number] [address] [place] [address] 15 Mar, 2017 Acute non-recurrent maxillar y sinusitis J01.00 [facility] [address] [facility] [id number] [address] [place] [address] Mar, [facility] [address] [facility] [id number] [address] [place] [address] Mar, Panlobular emphysema J43.1 a nd Diabetes E11.9 [facility] [address] [facility] [id number] [address] [place] [address] Mar, [facility] [address] [id number] [address] [place] [phone] 24 Feb, 2017 Wheezing R06.2 and Acute rec urrent pansinusitis J01.41 [facility] [address] [id number] [address] [place] [address] Feb, [facility] [address] [facility] [id number] [address] [place] [address] Feb, Acute non-recurrent maxillar y sinusitis J01.00 [facility] [address] [id number] [address] [place] [address] Feb, Chronic obstructive pulmonar y disease, unspecified J44.9 [facility] [address] [facility] [id number] [address] [place] [address] Feb, Hypoxemia R09.02 and Chronic obstructive pulmonary disease, unspecified J44.9 [facility] [address] [facility] [id number] [address] [place] [address] 28 Jan, 2017 Bipolar 1 disorder, depresse d, moderate F31.32 ; Panic disorder with agoraphobia F40.01 ; Chronic post-traumatic stress disorder (PTSD) F43.12 ; Diabetes E11.9 and Moderate persistent asthma without complication J45.40 [facility] [address] [facility] [id number] [address] [place] [address] Jan, [facility] [address] [id number] [address] [place] [address] 19 Jan, 2017 Acute non-recurrent maxillar y sinusitis J01.00 [facility] [address] [id number] [address] [place] [address] 18 Jan, 2017 [facility] [address] [facility] [id number] [address] [place] [address] 18 Jan, 2017 [facility] [address] [facility] [id number] [address] [place] [address] Jan, Moderate persistent asthma w ithout complication J45.40 and Hypoxemia R09.02 [facility] [address] [id number] [address] [place] [address] Jan, Moderate persistent asthma w [facility] complication J45.40 and Hypoxemia R09.02 [facility] [address] [id number] [address] [place] [address] Jan, [facility] [address] [id number] [address] [place] [address] Dec, Acute non-recurrent maxillar y sinusitis J01.00 [facility] [address] [id number] [address] [place] [address] Dec, Chronic obstructive pulmonar y disease, unspecified J44.9 [facility] [address] [id number] [address] [place] [address] Dec, [facility] [address] [id number] [address] [place] [address] Dec, [facility] J[facility].30 and Other chronic pain G89.29 [facility] [address] [id number] [address] [place] [address] Nov, [facility] [address] [id number] [address] [place] [address] Nov, Acute non-recurrent maxillar y sinusitis J01.00 [facility] [address] [id number] [address] [place] [address] Nov, [facility] [address] [id number] [address] [place] [address] Nov, [facility] [address] [id number] [address] [place] [address] Oct, [facility] [address] [id number] [address] [place] [address] Oct, Bipolar 1 disorder, depresse d, partial remission F31.75 ; Panic disorder with agoraphobia F40.01 and Chronic post-traumatic stress disorder (PTSD) F43.12 [facility] [address] [facility] [id number] [address] [place] [address] Oct, Acute non-recurrent maxillar y sinusitis J01.00 [facility] [address] [facility] [id number] [address] [place] [address] Oct, [facility] [address] [facility] [id number] [address] [place] [address] Oct, Diabetes E11.9 [facility] [address] [facility] [id number] [address] [place] [address] September, Diabetes E11.9 [facility] [address] [facility] [id number] [address] [place] [address] September, Diabetes E11.9 and Sinus tac hycardia R00.0 [facility] [address] [facility] [id number] [address] [place] [address] September, [facility] [address] [place] [id number] [address] [place] [address] September, [facility] [address] [facility] [id number] [address] [place] [address] Aug, Diabetes E11.9 and Lumbago w ith sciatica, right side M54.41 [facility] [address] [place] [id number] [address] [place] [address] Aug, [facility] [address] [place] [id number] [address] [place] [address] Jul, Bipolar 1 disorder, depresse d, moderate F31.32 ; Panic disorder with agoraphobia F40.01 and Chronic post-traumatic stress disorder (PTSD) F43.12 [place] [address] [facility] [id number] [address] [place] [address] Jul, Sore throat J02.9 [facility] [address] [facility] [id number] [address] [place] [address] Jul, [facility] [address] [id number] [address] [place] [address] 15 Jul, 2016 [facility] [address] [id number] [address] [place] [address] Jul, [facility] [address] [id number] [address] [place] [address] Jul, [facility] [address] [id number] [address] [place] [address] Jul, Sore throat J02.9 and Pharyn gitis, unspecified etiology J02.9 [facility] [address] [id number] [address] [place] [address] Jun, [facility] [address] [id number] [address] [place] [address] 23 Jun, 2016 Diabetes E11.9 [facility] [address] [id number] [address] [place] [address] 20 Jun, 2016 [facility] [address] [id number] [address] [place] [address] Jun, [facility] [address] [id number] [address] [place] [address] Jun, [facility] [address] [id number] [address] [place] [address] 16 Jun, 2016 [facility] [address] [id number] [address] [place] [address] 16 Jun, 2016 [facility] [address] [id number] [address] [place] [address] 15 Jun, 2016 [facility] [address] [id number] [address] [place] [address] 10 Jun, 2016 [facility] [address] [id number] [address] [place] [address] Jun, [facility] [address] [id number] [address] [place] [address] May, Diabetes E11.9 ; Other chron ic pain G89.29 ; Acute recurrent maxillary sinusitis J01.01 ; Bipolar I disorder with depression F31.9 and Anxiety disorder, unspecified F41.9 [facility] [address] [id number] [address] [place] [address] May, [facility] [address] [id number] [address] [place] [address] May, Diabetes E11.9 ; Bipolar I d isorder with depression F31.9 ; Anxiety disorder, unspecified F41.9 ; Other chronic pain G89.29 and Acute recurrent maxillary sinusitis J01.01 [place] [address] [id number] [address] [place] [address] May, [place] [address] [facility] [id number] [address] [place] [address] May, Attention deficit hyperactiv ity disorder (ADHD), predominantly inattentive type F90.0 [place] [address] [facility] [id number] [address] [place] [address] May, [place] [address] [facility] [id number] [address] [place] [address] Apr, Attention deficit hyperactiv ity disorder (ADHD), predominantly inattentive type F90.0 and Non-seasonal allergic rhinitis due to other allergic trigger J30.89 [place] [address] [facility] [id number] [address] [place] [address] Apr, Bipolar 1 disorder, depresse d, moderate F31.32 ; Panic disorder with agoraphobia F40.01 and Chronic post-traumatic stress disorder (PTSD) F43.12 [place] [address] [facility] [id number] [address] [place] [address] Apr, Dental examination Z01.20 [place] [address] [facility] [id number] [address] [place] [address] Mar, [place] [address] [facility] [id number] [address] [place] [address] Mar, [facility] [address] [id number] [address] [place] [address] Mar, Bipolar I disorder with depr ession F31.9 and Anxiety disorder, unspecified F41.9 [facility] [address] [id number] [address] [place] [address] 08 Mar, 2016 Panic disorder with agorapho syd F40.01 ; Bipolar 1 disorder, depressed, moderate F31.32 and Chronic post-traumatic stress disorder (PTSD) F43.12 [facility] [address] [id number] [address] [place] [address] Mar, [facility] [address] [id number] [address] [place] [address] Mar, Dental caries K02.9 [facility] [address] [id number] [address] [place] [address] Feb, Lumbago with sciatica, left side M54.42 ; Lumbago with sciatica, right side M54.41 and Other chronic pain G89.29 [facility] [address] [id number] [address] [place] [address] Feb, [facility] [address] [id number] [address] [place] [address] 14 Feb, 2016 [facility] [address] [id number] [address] [place] [address] Feb, Bipolar I disorder with depr ession F31.9 ; PTSD (post-traumatic stress disorder) F43.10 and Mood disorder F39 [facility] [address] [id number] [address] [place] [address] Feb, [facility] [address] [id number] [address] [place] [address] 11 Feb, 2016 Dental examination Z01.20 [facility] [address] [id number] [address] [place] [address] Feb, [facility] [address] [facility] [id number] [address] [place] [address] Feb, Acute bronchitis, unspecifie d organism J20.9 [facility] [address] [facility] [id number] [address] [place] [address] Jan, Mood disorder F39 ; Migraine without aura and without status migrainosus, not intractable G43.009 ; Irritable bowel syndrome, unspecified type K58.9 ; Diabetes E11.9 and Encounter for immunization Z23 [facility] [address] [facility] [id number] [address] [place] [address] Jan, [facility] [address] [address] Jan, [facility] [address] [address] Jan, [facility] [address] [address] Jan, [facility] [address] [address] Jan, [facility] [address] [address] Dec, Bipolar I disorder with depr ession F31.9 ; PTSD (post-traumatic stress disorder) F43.10 and Panic disorder with agoraphobia F40.01 [facility] [id number] [place] [address] Dec, Chronic obstructive pulmonar y disease, unspecified COPD type J44.9 ; Tremor R25.1 and Anxiety F41.9 [facility] [address] [address] Dec, [place] [address] [place] [id number] [place] [address] Nov, Tremors of nervous system R2 5.1 and Cramping of feet R25.2 [place] [address] [id number] [address] [place] [address] Nov, [facility] [address] [id number] [address] [place] [address] Nov, [facility] [address] [facility] [id number] [address] [place] [address] Oct, Chronic obstructive pulmonar y disease, unspecified J44.9 [facility] [address] [facility] [id number] [address] [place] [address] Oct, [facility] [address] [facility] [id number] [address] [place] [address] Oct, Tremor R25.1 [facility] [address] [facility] [id number] [address] [place] [address] Oct, Bipolar I disorder with depr ession F31.9 ; Diabetes E11.9 ; PTSD (post-traumatic stress disorder) F43.10 and Panic disorder with agoraphobia F40.01 [facility] [address] [facility] [id number] [address] [place] [address] Oct, Mood disorder F39 [facility] [address] [facility] [id number] [address] [place] [address] September, [facility] [address] [facility] [id number] [address] [place] [address] September, Diabetes E11.9 ; Bipolar I d isorder with depression F31.9 ; PTSD (post-traumatic stress disorder) F43.10 and Panic disorder with agoraphobia F40.01 [facility] [address] [facility] [id number] [address] [place] [address] September, Mood disorder F39 ; Schizoaf fective disorder, unspecified type F25.9 ; Arthritis M19.90 ; Tremor R25.1 ; Acute non-recurrent frontal sinusitis J01.10 and Blood in stool K92.1 [facility] [address] [facility] [id number] [address] [place] [address] September, [facility] [address] [id number] [address] [place] [address] September, Chronic obstructive pulmonar y disease, unspecified J44.9 [facility] [address] [id number] [address] [place] [id number] September, Diabetes E11.9 [facility] [address] [id number] [address] [place] [phone] Aug, Other bipolar disorder F31.8 9 and Anxiety disorder, unspecified F41.9 [facility] [address] [id number] [address] [place] [id number] Aug, [facility] [address] [id number] [address] [place] [id number] Aug, Diabetes E11.9 [facility] [address] [id number] [address] [place] [id number] Aug, [facility] [address] [id number] [address] [place] [id number] 14 Aug, 2015 Diabetes E11.9 ; Fatigue R53 .83 and Dizziness R42 [facility] [address] [id number] [address] [place] [id number] Aug, Other bipolar disorder F31.8 9 [facility] [address] [id number] [address] [place] [id number] Aug, Generalized anxiety disorder F41.1 [facility] [address] [id number] [address] [place] [id number] 07 Aug, 2015 Other bipolar disorder F31.8 9 and Anxiety disorder, unspecified F41.9 [facility] [address] [id number] [address] [place] [id number] Aug, [facility] [address] [id number] [address] [place] [phone] Jul, [facility] [address] [id number] [address] [place] [phone] Jul, [facility] [address] [facility] [place] [id number] [address] [place] [phone] Jul, Bronchitis J40 [facility] [address] [facility] [place] [id number] [address] [place] [id number] Jul, Anxiety disorder F41.9 [facility] [address] [facility] [place] [id number] [address] [place] [id number] Jul, Other bipolar disorder F31.8 9 and Anxiety disorder, unspecified F41.9 [facility] [address] [facility] [facility] [place] [id number] [address] [place] [address] Jul, Other bipolar disorder F31.8 9 and Fibromyalgia M79.7 [facility] [address] [facility] [place] [id number] [address] [place] [address] Jul, [facility] [address] [facility] [place] [id number] [address] [place] [address] Jul, [facility] [address] [facility] [id number] [address] [place] [address] Jul, [facility] [address] [facility] [place] [id number] [address] [place] [address] Jul, Other bipolar disorder F31.8 9 and Anxiety disorder, unspecified F41.9 [facility] [address] [facility] [place] [id number] [address] [place] [phone] Jun, GERD (gastroesophageal reflu x disease) K21.9 [facility] [address] [facility] [place] [id number] [address] [place] [address] Jun, [facility] [address] [facility] [place] [id number] [address] [place] [address] May, [facility] [address] [facility] [place] [id number] [address] [place] [address] May, Diabetes E11.9 ; Back pain M 54.9 ; GERD (gastroesophageal reflux disease) K21.9 ; Hypertension I10 and Peripheral neuropathy G62.9 [facility] [address] [id number] [address] [place] [address] Mar, [facility] [address] [id number] [address] [place] [address] Mar, [facility] [address] [facility] [place] [id number] [address] [place] [address] Mar, Acute sinusitis J01.90 and O titis media, left H66.92 [facility] [address] [id number] [address] [place] [address] Feb, [facility] [address] [id number] [address] [place] [phone] Feb, [facility] [address] [id number] [address] [place] [address] Feb, [facility] [address] [facility] [place] [id number] [address] [place] [address] Feb, [facility] [address] [id number] [address] [place] [address] Jan, [facility] [address] [id number] [address] [place] [address] Jan, Diabetes 250.00 and Back higinio n 724.5 [facility] [address] [facility] [place] [id number] [address] [place] [address] Jan, [facility] [address] [id number] [address] [place] [address] Dec, Diabetes 250.00 ; Benign ess ential hypertension 401.1 and Allergic rhinitis 477.9 [facility] [address] [id number] [address] [place] [address] Dec, [facility] [address] [facility] [place] [id number] [address] [place] [address] Dec, [facility] [address] [facility] [place] [id number] [address] [place] [address] Dec, Psychosis 298.9 [facility] [address] [id number] [address] [place] [phone] 10 Dec, 2014 Medication side effect 995.2 0 and Generalized anxiety disorder 300.02 [facility] [address] [facility] [place] [id number] [address] [place] [id number] Dec, Acquired cognitive dysfuncti on 294.9 [facility] [address] [facility] [place] [id number] [address] [place] [address] Dec, [facility] [address] [facility] [place] [id number] [address] [place] [address] Dec, Unspecified myalgia and myos itis 729.1 and Generalized anxiety disorder 300.02 [facility] [address] [facility] [place] [id number] [address] [place] [address] Nov, [facility] [address] [facility] [place] [id number] [address] [place] [address] Nov, [facility] [address] [facility] [place] [id number] [address] [place] [address] Nov, [facility] [address] [facility] [place] [id number] [address] [place] [address] Nov, Upper respiratory infection 465.9 and Chronic airway obstruction, not elsewhere classified 496 [facility] [address] [facility] [place] [id number] [address] [place] [address] Nov, Hyponatremia 276.1 [facility] [address] [facility] [place] [id number] [address] [place] [phone] Oct, [facility] [address] [facility] [place] [id number] [address] [place] [address] Oct, [facility] [address] [facility] [place] [id number] [address] [place] [address] Oct, [facility] [address] [facility] [place] [id number] [address] [place] [address] Oct, [facility] [address] [facility] [place] [id number] [address] [place] [phone] 04 Oct, 2014 Hyponatremia 276.1 [facility] [address] [id number] [address] [place] [address] Oct, [facility] [address] [id number] [address] [place] [phone] Oct, [facility] [address] [facility] [place] [id number] [address] [place] [address] Oct, Generalized anxiety disorder 300.02 [facility] [address] [id number] [address] [place] [address] Oct, Generalized anxiety disorder 300.02 and Diabetes 250.00 [facility] [address] [id number] [address] [place] [address] Aug, [facility] [address] [facility] [place] [id number] [address] [place] [address] Aug, [facility] [address] [facility] [place] [id number] [address] [place] [address] Jul, [facility] [address] [id number] [address] [place] [address] Jul, [facility] [address] [facility] [place] [id number] [address] [place] [phone] Jun, [facility] [address] [facility] [place] [id number] [address] [place] [address] Jun, [facility] [address] [id number] [address] [place] [address] Jun, [facility] [address] [id number] [address] [place] [address] Jun, [facility] [address] [facility] [place] [id number] [address] [place] [address] Jun, [facility] [address] [facility] [place] [id number] [address] [place] [address] May, [facility] [address] [id number] [address] [place] [address], [place] [address] May, [facility] [address] [id number] [address] [place] [address], [place] [address] Apr, [facility] [address] [id number] [address] [place] [address], [place] [address] Apr, [facility] [address] [id number] [address] [place] [address], [place] [address] Apr, [facility] [address] [id number] [address] [place] [address], [place] [address] Apr, [facility] [address] [id number] [address] [place] [address], [place] [address] Apr, [facility] [address] [id number] [address] [place] [address], [place] [address] Apr, [facility] [address] [id number] [address] [place] [address], [place] [address] Apr, [facility] [address] [id number] [address] [place] [address], [place] [address] Apr, [facility] [address] [id number] [address] [place] [address], [place] [address] Feb, [facility] [address] [id number] [address] [place] [address], [place] [address] Feb, [facility] [address] [id number] [address] [place] [address], [place] [address] Jan, [facility] [address] [id number] [address] [place] [address], [place] [address] Jan, [facility] [address] [id number] [address] [place] [address], [place] [address] Dec, [facility] [address] [id number] [address] [place] [address], [place] [address] Dec, [facility] [address] [id number] [address] [place] [address], [place] [address] Dec, [facility] [address] [id number] [address] [place] [address], [place] [address] Nov, [facility] [address] [id number] [address] [place] [address], [place] [address] Nov, [facility] [address] [id number] [address] [place] [address], [place] [address] Nov, [facility] [address] [id number] [address] [place] [address], [place] [address] Oct, [facility] [address] [id number] [address] [place] [address], [place] [address] Oct, [facility] [address] [id number] [address] [place] [address], [place] [address] Oct, [facility] [address] [id number] [address] [place] [address], [place] [address] September, [facility] [address] [id number] [address] [place] [address], [place] [address] September, [facility] [address] [id number] [address] [place] [address], [place] [address] September, [facility] [address] [id number] [address] [place] [address], [place] [address] Aug, [facility] [address] [id number] [address] [place] [address], [place] [address] Aug, [facility] [address] [id number] [address] [place] [address], [place] [address] Aug, [facility] [address] [id number] [address] [place] [address], [place] [address] Aug, [facility] [address] [id number] [address] [place] [address], [place] [address] Jul, [facility] [address] [id number] [address] [place] [address], [place] [address] Jun, [facility] [address] [id number] [address] [place] [id number] 14 Jun, 2011 [facility] [address] [id number] [address] [place] [address], [place] [address] 13 Jun, 2011 [facility] [address] [id number] [address] [place] [address], [place] [address] 07 Jun, 2011 [facility] [address] [id number] [address] [place] [address], [place] [address] 03 Jun, 2011 [facility] [address] [id number] [address] [place] [address], [place] [address] 13 May, 2011 [facility] [address] [id number] [address] [place] [address], [place] [address] 10 May, 2011 [facility] [address] [id number] [address] [place] [address], [place] [address] 09 May, 2011 [facility] [address] [id number] [address] [place] [address], [place] [address] 04 May, 2011 [facility] [address] [id number] [address] [place] [address], [place] [address] Apr, [facility] [address] [id number] [address] [place] [address], [place] [address] Apr, [facility] [address] [id number] [address] [place] [address], [place] [address] 05 Apr, 2011 [facility] [address] [id number] [address] [place] [address], [place] [address] Mar, [facility] [address] [id number] [address] [place] [address] Mar, [facility] [address] [id number] [address] [place] [address], [place] [address] 09 Mar, 2011 [facility] [address] [id number] [address] [place] [address], [place] [address] 13 Feb, 2011 [facility] [address] [id number] [address] [place] [address] 13 Feb, 2011 [facility] [address] [id number] [address] [place] [id number] 13 Feb, 2011 [facility] [address] [id number] [address] [place] [address] Nov, [facility] [address] [id number] [address] [place] [id number] September, [facility] [address] [id number] [address] [place] [address] Aug, [facility] [address] [id number] [address] [place] [address] Jul, [facility] [address] [id number] [address] [place] [address] May, [facility] [address] [id number] [address] [place] [address] Apr, [facility] [address] [id number] [address] [place] [address] Apr, [facility] [address] [id number] [address] [place] [address] Apr, [facility] [address] [id number] [address] [place] [address] Apr, [facility] [address] [id number] [address] [place] [address] Apr, IMMUNIZATIONS No Known Immunizations SOCIAL HISTORY [...]
--- OUTSIDE RECORDS SUMMARY | 2019-07-17 10:41 | XMS REPORT ---
Author Author Sujey GANDHI [facility] Address [address] [place] [address] Care Team Providers Care Manager Brand Name Role Phone WHIT GANDHI Unavailable PROBLEMS Type Condition ICD9-CM Code [id number] Code Onset Dates Condition S tatus SNOMED Code Problem Bipolar 1 disorder, depressed, moderate F31.32 Active 79927454 Problem Bipolar affective disorder, remission status unspecified F31.9 Active 23066052 Problem Chronic post-traumatic stress disorder (PTSD) F43. 12 Active 171661617 Problem Bipolar I disorder with depression F31.9 Active 78913020 Problem Attention deficit hyperactiv ity disorder (ADHD), predominantly inattentive type F90.0 Active 37097896 Problem Bipolar 1 disorder, depressed, partial remission F 31.75 Active 48848603 Problem Acute non-recurrent maxillary sinusitis J01.00 Active 06652970 Problem Slow transit constipation K59.01 Acti ve 36869181 Problem Lumbago with sciatica, left side M54.42 Active 361782107 Problem Essential tremor G25.0 Active 609 554803 Problem Chronic obstructive pulmonary disease, unspecified J44.9 Active 30056056 Problem Other chronic pain G89.29 Active 8 4854228 Problem Lumbago with sciatica, right side M54.41 Active 258142737 Problem Migraine without aura and without status migrain osus, not intractable G43.009 Active 284371647 Problem Akathisia G25.71 Active 165352994 Problem Fibrocystic disease of right breast N60.11 Active 60176470 Problem Back pain M54.9 Active 676427259 Problem Fibrocystic disease of left breast N60.12 Active 50267754 Problem Hypertension I10 Active 0382599 3 Problem Irritable bowel syndrome with constipation K58.1 Active 093609838 Problem Other bipolar disorder F31.89 Active 23685847 Problem Arthritis M19.90 Active 6275151 Problem Anxiety disorder, unspecified F41.9 Active 415638687 Problem Schizoaffective disorder, bipolar type F25.0 Active 61880392 Problem Panic disorder with agoraphobia F40.01 Active 73102625 Problem Irritable bowel syndrome with both constipation and diarrh ea K58.2 Active 13084567 Problem Fibromyalgia M79.7 Active 6525371 7 Problem Daytime somnolence R40.0 Active 1 70870476467 Problem Abnormal mammogram of right breast R92.8 Active 626089066 Problem Tinnitus of right ear H93.11 Active 19128033 Problem Diffuse cystic mastopathy of right breast N60.11 Active 24902312 Problem Moderate persistent asthma without complication J4 5.40 Active 580532984 Problem Hemiplegia and hemiparesis f ollowing unspecified cerebrovascular disease affecting right dominant side I69.951 Active 582578438 Problem Mild persistent asthma without complication J45.30 Active 750771710 Problem GERD (gastroesophageal reflux disease) K21.9 Active 392878856 Problem Panlobular emphysema J43.1 Active 0127851 Problem Tinnitus of both ears H93.13 Active 0427817751671 Problem Contracture, left hand M24.542 Active 268530002797619 Problem Diabetes E11.9 Active 91602301 Problem Mood disorder F39 Active 002436 05 Problem Diffuse cystic mastopathy of left breast N60.12 Active 00626514 ALLERGIES Substance Reaction Event Type Date Status Darvocet-N 50 Unknown Drug Allergy Jul, Active Cefdinir Swelling Drug Allergy Jul, Active Benadryl vomiting/swelling Drug Allergy Jul, Active Penicillin V Potassium Unknown Drug Allergy Jul, Activ e Effexor anaphylaxis Drug Allergy Jul, Active ENCOUNTERS Encounter Location Date Diagnosis [facility] [address] [facility] [id number] [address] [place] [phone] Dec, [facility] [address] [facility] [id number] [address] [place] [phone] Nov, [facility] [address] [facility] [id number] [address] [place] [phone] Nov, Hemiplegia and hemiparesis f ollowing unspecified cerebrovascular disease affecting right dominant side I69.951 ; Diabetes E11.9 ; Daytime somnolence R40.0 and Other chronic pain G89.29 [facility] [address] [id number] [address] [place] [phone] Nov, [facility] [address] [id number] [address] [place] [phone] Nov, [facility] [address] [id number] [address] [place] [phone] Nov, Hemiplegia and hemiparesis f ollowing unspecified cerebrovascular disease affecting right dominant side I69.951 ; Lower leg edema R60.0 and Plantar fasciitis, bilateral M72.2 [facility] [address] [id number] [address] [place] [phone] Oct, [facility] [address] [id number] [address] [place] [phone] Oct, Daytime somnolence R40.0 ; D iabetes E11.9 and Other chronic pain G89.29 [facility] [address] [id number] [address] [place] [phone] Oct, Edema, lower extremity R60.0 and Hip pain, left M25.552 [facility] [address] [id number] [address] [place] [phone] Oct, [facility] [address] [id number] [address] [place] [phone] September, [facility] [address] [id number] [address] [place] [phone] September, Diabetes E11.9 and Other chr onic pain G89.29 [facility] [address] [id number] [address] [place] [phone] September, Diabetes E11.9 and Other chr onic pain G89.29 [facility] [address] [id number] [address] [place] [phone] September, [facility] [address] [id number] [address] [place] [phone] Aug, [place] [address] [id number] [address] [place] [phone] Aug, Hypertension I10 [place] [address] [facility] [id number] [address] [place] [phone] Aug, [place] [address] [facility] [id number] [address] [place] [phone] Aug, [place] [address] [facility] [id number] [address] [place] [phone] Aug, Diabetes E11.9 and Edema of both legs R60.0 [place] [address] [facility] [id number] [address] [place] [phone] Aug, Panic disorder with agorapho syd F40.01 ; Other chronic pain G89.29 and Daytime somnolence R40.0 [place] [address] [facility] [id number] [address] [place] [phone] Jul, [place] [address] [facility] [id number] [address] [place] [phone] Jul, [place] [address] [facility] [id number] [address] [place] [phone] Jul, Diffuse cystic mastopathy of left breast N60.12 and Diffuse cystic mastopathy of right breast N60.11 [place] [address] [facility] [id number] [address] [place] [address] Jul, Fibrocystic disease of right breast N60.11 [place] [address] [facility] [id number] [address] [place] [phone] Jul, Fibrocystic disease of right breast N60.11 and Fibrocystic disease of left breast N60.12 [place] [address] [facility] [id number] [address] [place] [phone] Jul, Encounter for Medicare annua l wellness exam Z00.00 ; Schizoaffective disorder, bipolar type F25.0 ; Chronic obstructive pulmonary disease, unspecified J44.9 ; Fibromyalgia M79.7 and Acute non-recurrent maxillary sinusitis J01.00 [facility] [address] [facility] [id number] [address] [place] [phone] 14 Jul, 2018 Daytime somnolence R40.0 [facility] [address] [facility] [id number] [address] [place] [phone] 14 Jul, 2018 [facility] [address] [place] [id number] [address] [place] [phone] 13 Jul, 2018 [facility] [address] [facility] [id number] [address] [place] [phone] 12 Jul, 2018 Panic disorder with agorapho syd F40.01 ; Anxiety disorder, unspecified F41.9 ; Other chronic pain G89.29 and Daytime somnolence R40.0 [place] [address] [facility] [id number] [address] [place] [phone] Jul, [facility] [address] [place] [id number] [address] [place] [phone] 28 Jun, 2018 [facility] [address] [place] [id number] [address] [place] [phone] 08 Jun, 2018 Hip pain, left M25.552 ; Leg pain, left M79.605 ; Lumbar pain M54.5 and Mood disorder F39 [place] [address] [place] [id number] [address] [place] [phone] 08 Jun, 2018 Diabetes E11.9 ; Other chron ic pain G89.29 and Anxiety disorder, unspecified F41.9 [facility] [address] [place] [id number] [address] [place] [id number] 07 Jun, 2018 Hip pain, left M25.552 ; Leg pain, left M79.605 ; Lumbar pain M54.5 and Mood disorder F39 [facility] [address] [place] [id number] [address] [place] [phone] May, Diabetes E11.9 [facility] [address] [place] [id number] [place] [phone] May, [facility] [address] [id number] [address] [place] [phone] May, Other chronic pain G89.29 an d Anxiety disorder, unspecified F41.9 [facility] [address] [id number] [address] [place] [phone] May, [facility] [address] [id number] [address] [place] [phone] May, [facility] [address] [id number] [address] [place] [address] May, Tinnitus of right ear H93.11 [place] [address] [facility] [id number] [address] [place] [address] May, Diabetes E11.9 ; Tinnitus of both ears H93.13 ; Contracture, left hand M24.542 and Family history of rheumatic joint disease Z82.69 [place] [address] [facility] [id number] [address] [place] [phone] Apr, [place] [address] [id number] [address] [place] [phone] Apr, [place] [address] [facility] [id number] [address] [place] [phone] Apr, Tinnitus of right ear H93.11 and Hypertension I10 [place] [address] [facility] [id number] [address] [place] [phone] Apr, Other chronic pain G89.29 ; Daytime somnolence R40.0 and Anxiety disorder, unspecified F41.9 [place] [address] [id number] [address] [place] [phone] Apr, [place] [address] [facility] [id number] [address] [place] [phone] Apr, [place] [address] [facility] [id number] [address] [place] [phone] Mar, Tinnitus of right ear H93.11 [place] [address] [place] [id number] [address] [place] [phone] Mar, [facility] [address] [place] [id number] [place] [phone] Mar, Anxiety disorder, unspecifie d F41.9 ; Other chronic pain G89.29 and Daytime somnolence R40.0 [facility] [address] [place] [id number] [address] [place] [phone] Mar, Irritable bowel syndrome wit h both constipation and diarrhea K58.2 [facility] [address] [place] [id number] [address] [place] [phone] Mar, [facility] [address] [place] [id number] [place] [phone] Mar, Hypertension I10 [facility] [address] [place] [id number] [place] [phone] Mar, [facility] [address] [place] [id number] [place] [phone] Mar, [facility] [address] [place] [id number] [place] [phone] Mar, [facility] [address] [place] [id number] [place] [phone] Mar, Diabetes E11.9 [facility] [address] [phone] Mar, [facility] [address] [place] [id number] [place] [phone] Feb, Daytime somnolence R40.0 and Anxiety disorder, unspecified F41.9 [facility] [address] [place] [id number] [address] [place] [phone] Feb, [facility] [address] [place] [id number] [address] [place] [phone] Feb, [facility] [address] [place] [id number] [place] [phone] Feb, Tremors of nervous system R2 5.1 and Acute swimmer''s ear of right side H60.331 [place] [address] [place] [id number] [address] [place] [phone] Feb, Cerebrovascular accident (CV A) due to occlusion of right cerebellar artery I63.541 and Hypertension I10 [facility] [address] [facility] [id number] [address] [place] [phone] Feb, [facility] [address] [facility] [id number] [address] [place] [phone] Feb, Cerebrovascular accident (CV A) due to occlusion of right cerebellar artery I63.[id number] [place] [id number] Feb, Hyponatremia E87.1 [place] [id number] [place] [phone] Feb, [place] [address] [facility] [id number] [address] [place] [phone] Feb, Daytime somnolence R40.0 [place] [address] [place] [id number] [address] [place] [phone] Feb, [place] [address] [place] [id number] [address] [place] [phone] Jan, [place] [address] [place] [id number] [address] [place] [phone] Jan, [place] [address] [facility] [id number] [address] [place] [phone] Jan, Chronic obstructive pulmonar y disease, unspecified J44.9 and Anxiety disorder, unspecified F41.9 [place] [address] [place] [id number] [address] [place] [phone] Jan, Hypertension I10 ; Fibromyal medhat M79.7 and Lumbago with sciatica, left side M54.42 [place] [address] [place] [id number] [address] [place] [phone] 26 Jan, 2018 [facility] [address] [id number] [address] [place] [phone] Jan, Cerebrovascular accident (CV A) due to occlusion of right cerebellar artery I63.541 [facility] [address] [id number] [address] [place] [phone] 19 Jan, 2018 [facility] [address] [id number] [address] [place] [phone] 13 Jan, 2018 Arthritis M19.90 [place] [address] [facility] [id number] [address] [place] [phone] 07 Jan, 2018 [place] [address] [facility] [id number] [address] [place] [phone] 04 Jan, 2018 Abnormal mammogram of right breast R92.8 [place] [address] [place] [id number] [address] [place] [phone] Dec, Daytime somnolence R40.0 and Right otitis media with effusion H65.91 [place] [address] [facility] [id number] [address] [place] [phone] Dec, [place] [address] [facility] [id number] [address] [place] [phone] Dec, Cerebrovascular accident (CV A) due to occlusion of right cerebellar artery I63.541 [facility] [address] [facility] [id number] [address] [place] [phone] Dec, [place] [address] [facility] [id number] [address] [place] [phone] Dec, [place] [address] [place] [id number] [address] [place] [phone] Nov, Bipolar 1 disorder, depresse d, partial remission F31.75 and Panic disorder with agoraphobia F40.01 [place] [address] [place] [id number] [address] [place] [phone] Nov, Panlobular emphysema J43.1 [facility] [address] [id number] [address] [place] [phone] Nov, Cerebrovascular accident (CV A) due to occlusion of right cerebellar artery I63.541 and Acute non-recurrent maxillary sinusitis J01.00 [facility] [address] [id number] [address] [place] [phone] Nov, Panlobular emphysema J43.1 [facility] [address] [id number] [address] [place] [phone] Nov, [facility] [address] [id number] [address] [place] [phone] Nov, [facility] [address] [id number] [address] [place] [phone] Nov, [facility] [address] [id number] [address] [place] [phone] Nov, [facility] [address] [id number] [address] [place] [phone] Nov, [facility] [address] [id number] [address] [place] [phone] Nov, [facility] [address] [id number] [address] [place] [phone] Nov, [facility] [address] [id number] [address] [place] [phone] Nov, Mild persistent asthma witho ut complication J45.30 and Irritable bowel syndrome with both constipation and diarrhea K58.2 [facility] [address] [id number] [address] [place] [phone] Nov, [facility] [address] [id number] [address] [place] [phone] Oct, [facility] [address] [id number] [address] [place] [phone] Oct, [facility] [address] [id number] [address] [place] [phone] Oct, Type 2 diabetes mellitus wit h diabetic neuropathy, unspecified whether jail insulin use E11.40 ; Diabetes E11.9 ; Slow transit constipation K59.01 ; Edema of both legs R60.0 and Dysfunction of right eustachian tube H69.81 [facility] [address] [id number] [address] [place] [phone] Oct, Frequent headaches R51 [facility] [address] [id number] [address] [place] [phone] Oct, [facility] [address] [id number] [address] [place] [phone] Oct, [facility] [address] [id number] [address] [place] [phone] Oct, [facility] [address] [facility] [id number] [address] [place] [phone] Oct, [facility] [address] [id number] [address] [place] [phone] Oct, [facility] [address] [facility] [id number] [address] [place] [phone] Oct, [facility] [address] [facility] [id number] [address] [place] [phone] Oct, [facility] [address] [facility] [id number] [address] [place] [phone] Oct, [facility] [address] [id number] [address] [place] [phone] September, Frequent headaches R51 [facility] [address] [id number] [address] [place] [phone] September, Bilateral otitis media with effusion H65.93 ; Dizziness R42 and Essential tremor G25.0 [facility] [address] [id number] [address] [place] [phone] September, Chronic obstructive pulmonar y disease, unspecified COPD type J44.9 [facility] [address] [facility] [id number] [address] [place] [phone] September, Chronic obstructive pulmonar y disease, unspecified COPD type J44.9 [facility] [address] [facility] [id number] [address] [place] [phone] September, Migraine without aura and wi thout status migrainosus, not intractable G43.009 [facility] [address] [facility] [id number] [address] [place] [phone] September, [facility] [address] [facility] [id number] [address] [place] [phone] September, [facility] [address] [facility] [id number] [address] [place] [phone] September, [facility] [address] [place] [id number] [address] [place] [phone] September, Frequent headaches R51 [facility] [address] [facility] [id number] [address] [place] [phone] Aug, [facility] [address] [place] [id number] [address] [place] [phone] Aug, Breast mass, right N63.10 [facility] [address] [place] [id number] [address] [place] [phone] Aug, Breast lump N63.0 [facility] [address] [facility] [id number] [address] [place] [phone] Aug, [facility] [address] [place] [id number] [address] [place] [phone] Aug, Bipolar affective disorder, remission status unspecified F31.9 and Diabetes E11.9 [facility] [address] [facility] [id number] [address] [place] [phone] Aug, Diabetes E11.9 ; Schizoaffec tive disorder, bipolar type F25.0 ; Pharyngitis due to other organism J02.8 ; Panlobular emphysema J43.1 and Irritable bowel syndrome with both constipation and diarrhea K58.2 [facility] [address] [id number] [address] [place] [phone] Aug, Abnormal mammogram R92.8 [facility] [address] [id number] [address] [place] [phone] Aug, [facility] [address] [id number] [address] [place] [phone] Aug, Bipolar 1 disorder, depresse d, moderate F31.32 ; Panic disorder with agoraphobia F40.01 and Chronic post-traumatic stress disorder (PTSD) F43.12 [facility] [address] [id number] [address] [place] [phone] Aug, [place] [address] [id number] [address] [place] [phone] Aug, [place] [address] [id number] [address] [place] [phone] Aug, [facility] [address] [id number] [address] [place] [phone] Jul, [place] [address] [id number] [address] [place] [phone] Jul, Mild persistent asthma witho ut complication J45.30 [place] [address] [id number] [address] [place] [phone] Jul, Mild persistent asthma witho ut complication J45.30 [place] [address] [id number] [address] [place] [phone] 15 Jul, 2017 Bipolar affective disorder, remission status unspecified F31.9 ; Diabetes E11.9 and Irritable bowel syndrome with constipation K58.1 [facility] [address] [id number] [address] [place] [phone] Jul, [place] [address] [id number] [address] [place] [phone] Jul, [place] [address] [facility] [id number] [address] [place] [phone] Jul, Frequent headaches R51 [place] [address] [facility] [id number] [address] [place] [phone] Jul, [facility] [address] [facility] [id number] [address] [place] [phone] Jul, [place] [address] [facility] [id number] [place] [phone] Jul, [place] [address] [facility] [id number] [address] [place] [phone] Jul, Frequent headaches R51 ; Fib rocystic disease of left breast N60.12 ; Fibrocystic disease of right breast N60.11 and Diabetes E11.9 [place] [address] [place] [id number] [place] [phone] Jul, [place] [address] [phone] Jul, [place] [address] [phone] 21 Jun, 2017 Exudative tonsillitis J03.90 [place] [address] [place] [id number] [address] [place] [phone] 20 Jun, 2017 [place] [address] [phone] 19 Jun, 2017 [place] [address] [id number] 15 Jun, 2017 Mild persistent asthma witho ut complication J45.30 ; Chronic obstructive pulmonary disease, unspecified COPD type J44.9 and Exudative tonsillitis J03.90 [place] [address] [place] [id number] [address] [place] [phone] 13 Jun, 2017 Encounter for immunization Z 23 [place] [address] [address] Jun, [facility] [address] [facility] [id number] [address] [place] [phone] Jun, [facility] [address] [facility] [id number] [address] [place] [phone] Jun, [facility] [address] [facility] [id number] [address] [place] [phone] Jun, Tonsillitis J03.90 [facility] [address] [facility] [id number] [address] [place] [phone] Jun, [facility] [address] [facility] [id number] [address] [place] [phone] Jun, Acute non-recurrent maxillar y sinusitis J01.00 [facility] [address] [place] [id number] [address] [place] [phone] Jun, [facility] [address] [place] [id number] [address] [place] [phone] May, [facility] [address] [facility] [id number] [address] [place] [phone] May, [facility] [address] [place] [id number] [address] [place] [phone] May, GERD (gastroesophageal reflu x disease) K21.9 [facility] [address] [place] [id number] [address] [place] [phone] May, Migraine without aura and wi thout status migrainosus, not intractable G43.009 [facility] [address] [facility] [id number] [address] [place] [phone] May, [facility] [address] [facility] [id number] [address] [place] [phone] May, [facility] [address] [place] [id number] [address] [place] [phone] May, Panlobular emphysema J43.1 a nd Acute non-recurrent maxillary sinusitis J01.00 [facility] [address] [id number] [address] [place] [phone] May, Bipolar 1 disorder, depresse d, moderate F31.32 ; Panic disorder with agoraphobia F40.01 and Akathisia G25.71 [facility] [address] [facility] [id number] [address] [place] [phone] Apr, [facility] [address] [facility] [id number] [address] [place] [phone] Apr, [facility] [address] [facility] [id number] [address] [place] [phone] Apr, Acute non-recurrent maxillar y sinusitis J01.00 [facility] [address] [facility] [id number] [address] [place] [phone] Apr, Panlobular emphysema J43.1 [facility] [address] [facility] [id number] [address] [place] [phone] Apr, [facility] [address] [facility] [id number] [address] [place] [phone] Apr, Exudative tonsillitis J03.90 and Sore throat J02.9 [facility] [address] [facility] [id number] [address] [place] [phone] 17 Mar, 2017 [facility] [address] [facility] [id number] [address] [place] [phone] 15 Mar, 2017 Acute non-recurrent maxillar y sinusitis J01.00 [facility] [address] [facility] [id number] [address] [place] [phone] Mar, [facility] [address] [facility] [id number] [address] [place] [phone] 09 Mar, 2017 Panlobular emphysema J43.1 a nd Diabetes E11.9 [facility] [address] [facility] [id number] [address] [place] [phone] 06 Mar, 2017 [facility] [address] [facility] [id number] [address] [place] [phone] 24 Feb, 2017 Wheezing R06.2 and Acute rec urrent pansinusitis J01.41 [facility] [address] [facility] [id number] [address] [place] [phone] Feb, [facility] [address] [facility] [id number] [address] [place] [phone] Feb, Acute non-recurrent maxillar y sinusitis J01.00 [facility] [address] [facility] [id number] [address] [place] [phone] Feb, Chronic obstructive pulmonar y disease, unspecified J44.9 [place] [address] [place] [id number] [address] [place] [phone] Feb, Hypoxemia R09.02 and Chronic obstructive pulmonary disease, unspecified J44.9 [place] [address] [address] 28 Jan, 2017 Bipolar 1 disorder, depresse d, moderate F31.32 ; Panic disorder with agoraphobia F40.01 ; Chronic post-traumatic stress disorder (PTSD) F43.12 ; Diabetes E11.9 and Moderate persistent asthma without complication J45.40 [facility] [address] [place] [id number] [address] [place] [phone] Jan, [place] [address] [place] [id number] [address] [place] [phone] 19 Jan, 2017 Acute non-recurrent maxillar y sinusitis J01.00 [facility] [address] [facility] [id number] [address] [place] [phone] 18 Jan, 2017 [facility] [address] [phone] 18 Jan, 2017 [place] [address] [facility] [id number] [address] [place] [phone] 12 Jan, 2017 Moderate persistent asthma w [facility] complication J45.40 and Hypoxemia R09.02 [place] [address] [place] [id number] [address] [place] [phone] Jan, Moderate persistent asthma w [facility] complication J45.40 and Hypoxemia R09.02 [facility] [address] [id number] [address] [place] [phone] Jan, [facility] [address] [facility] [id number] [address] [place] [phone] Dec, Acute non-recurrent maxillar y sinusitis J01.00 [facility] [address] [id number] [address] [place] [phone] Dec, Chronic obstructive pulmonar y disease, unspecified J44.9 [facility] [address] [facility] [id number] [address] [place] [phone] Dec, [place] [address] [facility] [id number] [address] [place] [phone] Dec, Mild persistent [facility] J45.30 and Other chronic pain G89.29 [facility] [address] [id number] [address] [place] [phone] Nov, [facility] [address] [id number] [address] [place] [phone] Nov, Acute non-recurrent maxillar y sinusitis J01.00 [facility] [address] [facility] [id number] [address] [place] [phone] Nov, [facility] [address] [facility] [id number] [address] [place] [phone] Nov, [facility] [address] [facility] [id number] [address] [place] [phone] Oct, [place] [address] [facility] [id number] [address] [place] [phone] Oct, Bipolar 1 disorder, depresse d, partial remission F31.75 ; Panic disorder with agoraphobia F40.01 and Chronic post-traumatic stress disorder (PTSD) F43.12 [place] [address] [facility] [id number] [address] [place] [phone] Oct, Acute non-recurrent maxillar y sinusitis J01.00 [facility] [address] [facility] [id number] [address] [place] [phone] Oct, [facility] [address] [facility] [id number] [address] [place] [phone] Oct, Diabetes E11.9 [facility] [address] [facility] [id number] [address] [place] [phone] September, Diabetes E11.9 [facility] [address] [facility] [id number] [address] [place] [phone] September, Diabetes E11.9 and Sinus tac hycardia R00.0 [facility] [address] [facility] [id number] [address] [place] [phone] September, [facility] [address] [place] [id number] [address] [place] [phone] September, [facility] [address] [place] [id number] [address] [place] [phone] Aug, Diabetes E11.9 and Lumbago w ith sciatica, right side M54.41 [facility] [address] [place] [id number] [address] [place] [phone] Aug, [facility] [address] [place] [id number] [address] [place] [id number] Jul, Bipolar 1 disorder, depresse d, moderate F31.32 ; Panic disorder with agoraphobia F40.01 and Chronic post-traumatic stress disorder (PTSD) F43.12 [facility] [address] [place] [id number] [address] [place] [phone] Jul, Sore throat J02.9 [facility] [address] [facility] [id number] [address] [place] [phone] Jul, [facility] [address] [place] [id number] [address] [place] [id number] Jul, [facility] [address] [facility] [id number] [address] [place] [phone] Jul, [facility] [address] [facility] [id number] [address] [place] [phone] Jul, [facility] [address] [facility] [id number] [address] [place] [phone] Jul, Sore throat J02.9 and Pharyn gitis, unspecified etiology J02.9 [facility] [address] [id number] [address] [place] [phone] Jun, [facility] [address] [id number] [address] [place] [id number] Jun, Diabetes E11.9 [facility] [address] [facility] [id number] [address] [place] [phone] Jun, [facility] [address] [facility] [id number] [address] [place] [phone] Jun, [facility] [address] [facility] [id number] [address] [place] [phone] Jun, [facility] [address] [facility] [id number] [address] [place] [phone] Jun, [facility] [address] [facility] [id number] [address] [place] [phone] Jun, [facility] [address] [facility] [id number] [address] [place] [phone] 15 Jun, 2016 [facility] [address] [facility] [id number] [address] [place] [phone] Jun, [facility] [address] [facility] [id number] [address] [place] [phone] Jun, [facility] [address] [facility] [id number] [address] [place] [phone] May, Diabetes E11.9 ; Other chron ic pain G89.29 ; Acute recurrent maxillary sinusitis J01.01 ; Bipolar I disorder with depression F31.9 and Anxiety disorder, unspecified F41.9 [facility] [address] [id number] [address] [place] [phone] May, [place] [address] [id number] [address] [place] [phone] May, Diabetes E11.9 ; Bipolar I d isorder with depression F31.9 ; Anxiety disorder, unspecified F41.9 ; Other chronic pain G89.29 and Acute recurrent maxillary sinusitis J01.01 [place] [address] [id number] [address] [place] [phone] May, [place] [address] [id number] [address] [place] [phone] May, Attention deficit hyperactiv ity disorder (ADHD), predominantly inattentive type F90.0 [place] [address] [id number] [address] [place] [phone] May, [place] [address] [facility] [id number] [address] [place] [phone] Apr, Attention deficit hyperactiv ity disorder (ADHD), predominantly inattentive type F90.0 and Non-seasonal allergic rhinitis due to other allergic trigger J30.89 [place] [address] [facility] [id number] [address] [place] [phone] Apr, Bipolar 1 disorder, depresse d, moderate F31.32 ; Panic disorder with agoraphobia F40.01 and Chronic post-traumatic stress disorder (PTSD) F43.12 [place] [address] [id number] [address] [place] [phone] Apr, Dental examination Z01.20 [facility] [address] [id number] [address] [place] [phone] Mar, [place] [address] [facility] [id number] [address] [place] [phone] Mar, [facility] [address] [id number] [address] [place] [phone] Mar, Bipolar I disorder with depr ession F31.9 and Anxiety disorder, unspecified F41.9 [facility] [address] [id number] [address] [place] [phone] 08 Mar, 2016 Panic disorder with agorapho syd F40.01 ; Bipolar 1 disorder, depressed, moderate F31.32 and Chronic post-traumatic stress disorder (PTSD) F43.12 [facility] [address] [id number] [address] [place] [phone] 04 Mar, 2016 [facility] [address] [id number] [address] [place] [phone] 02 Mar, 2016 Dental caries K02.9 [facility] [address] [id number] [address] [place] [phone] 24 Feb, 2016 Lumbago with sciatica, left side M54.42 ; Lumbago with sciatica, right side M54.41 and Other chronic pain G89.29 [facility] [address] [id number] [address] [place] [phone] 17 Feb, 2016 [facility] [address] [id number] [address] [place] [phone] 14 Feb, 2016 [facility] [address] [id number] [address] [place] [phone] 13 Feb, 2016 Bipolar I disorder with depr ession F31.9 ; PTSD (post-traumatic stress disorder) F43.10 and Mood disorder F39 [facility] [address] [id number] [address] [place] [phone] 13 Feb, 2016 [facility] [address] [id number] [address] [place] [phone] 11 Feb, 2016 Dental examination Z01.20 [facility] [address] [id number] [address] [place] [phone] 07 Feb, [address] [facility] [address] [address] Feb, Acute bronchitis, unspecifie d organism J20.9 [place] [address] [address] Jan, Mood disorder F39 ; Migraine without aura and without status migrainosus, not intractable G43.009 ; Irritable bowel syndrome, unspecified type K58.9 ; Diabetes E11.9 and Encounter for immunization Z23 [place] [address] [address] Jan, [place] [address] [phone] Jan, [place] [address] [phone] Jan, [place] [address] [phone] Jan, [place] [address] [phone] Jan, [place] [address] [address] Dec, Bipolar I disorder with depr ession F31.9 ; PTSD (post-traumatic stress disorder) F43.10 and Panic disorder with agoraphobia F40.01 [place] [address] [phone] Dec, Chronic obstructive pulmonar y disease, unspecified COPD type J44.9 ; Tremor R25.1 and Anxiety F41.9 [place] [address] [address] Dec, [place] [address] [address] Nov, Tremors of nervous system R2 5.1 and Cramping of feet R25.2 [place] [address] [address] Nov, [facility] [address] [facility] [id number] [address] [place] [phone] Nov, [facility] [address] [facility] [id number] [address] [place] [phone] Oct, Chronic obstructive pulmonar y disease, unspecified J44.9 [facility] [address] [facility] [id number] [address] [place] [phone] Oct, [facility] [address] [facility] [id number] [address] [place] [phone] Oct, Tremor R25.1 [place] [address] [facility] [id number] [address] [place] [phone] Oct, Bipolar I disorder with depr ession F31.9 ; Diabetes E11.9 ; PTSD (post-traumatic stress disorder) F43.10 and Panic disorder with agoraphobia F40.01 [place] [address] [facility] [id number] [address] [place] [phone] Oct, Mood disorder F39 [place] [address] [facility] [id number] [address] [place] [place] [id number] September, [facility] [address] [facility] [id number] [address] [place] [id number] September, Diabetes E11.9 ; Bipolar I d isorder with depression F31.9 ; PTSD (post-traumatic stress disorder) F43.10 and Panic disorder with agoraphobia F40.01 [facility] [address] [facility] [id number] [address] [place] [id number] September, Mood disorder F39 ; Schizoaf fective disorder, unspecified type F25.9 ; Arthritis M19.90 ; Tremor R25.1 ; Acute non-recurrent frontal sinusitis J01.10 and Blood in stool K92.1 [facility] [address] [facility] [id number] [address] [place] [phone] September, [place] [address] [id number] [address] [place] [phone] September, Chronic obstructive pulmonar y disease, unspecified J44.9 [facility] [address] [id number] [address] [place] [address] September, Diabetes E11.9 [facility] [address] [id number] [address] [place] [phone] Aug, Other bipolar disorder F31.8 9 and Anxiety disorder, unspecified F41.9 [facility] [address] [id number] [address] [place] [phone] Aug, [facility] [address] [id number] [address] [place] [phone] Aug, Diabetes E11.9 [facility] [address] [id number] [address] [place] [phone] 18 Aug, 2015 [facility] [address] [id number] [address] [place] [phone] 14 Aug, 2015 Diabetes E11.9 ; Fatigue R53 .83 and Dizziness R42 [facility] [address] [id number] [address] [place] [phone] Aug, Other bipolar disorder F31.8 9 [facility] [address] [id number] [address] [place] [phone] Aug, Generalized anxiety disorder F41.1 [facility] [address] [id number] [address] [place] [phone] Aug, Other bipolar disorder F31.8 9 and Anxiety disorder, unspecified F41.9 [facility] [address] [id number] [address] [place] [phone] Aug, [facility] [address] [id number] [address] [place] [phone] Jul, [facility] [address] [id number] [address] [place] [phone] Jul, [facility] [address] [facility] [id number] [address] [place] [phone] Jul, Bronchitis J40 [facility] [address] [facility] [id number] [address] [place] [phone] Jul, Anxiety disorder F41.9 [facility] [address] [facility] [id number] [address] [place] [phone] Jul, Other bipolar disorder F31.8 9 and Anxiety disorder, unspecified F41.9 [facility] [address] [facility] [id number] [address] [place] [phone] Jul, Other bipolar disorder F31.8 9 and Fibromyalgia M79.7 [facility] [address] [facility] [id number] [address] [place] [phone] Jul, [place] [address] [place] [id number] [address] [place] [phone] Jul, [facility] [address] [facility] [id number] [address] [place] [phone] Jul, [facility] [address] [place] [id number] [address] [place] [phone] Jul, Other bipolar disorder F31.8 9 and Anxiety disorder, unspecified F41.9 [facility] [address] [facility] [id number] [address] [place] [phone] Jun, GERD (gastroesophageal reflu x disease) K21.9 [facility] [address] [facility] [id number] [address] [place] [phone] Jun, [facility] [address] [facility] [id number] [address] [place] [phone] May, [facility] [address] [place] [id number] [address] [place] [phone] May, Diabetes E11.9 ; Back pain M 54.9 ; GERD (gastroesophageal reflux disease) K21.9 ; Hypertension I10 and Peripheral neuropathy G62.9 [facility] [address] [facility] [id number] [address] [place] [phone] Mar, [facility] [address] [id number] [address] [place] [phone] Mar, [facility] [address] [id number] [address] [place] [phone] Mar, Acute sinusitis J01.90 and O titis media, left H66.92 [facility] [address] [id number] [address] [place] [phone] Feb, [facility] [address] [id number] [address] [place] [phone] Feb, [facility] [address] [id number] [address] [place] [phone] Feb, [facility] [address] [facility] [id number] [address] [place] [phone] Feb, [facility] [address] [id number] [address] [place] [phone] Jan, [facility] [address] [id number] [address] [place] [phone] Jan, Diabetes 250.00 and Back higinio n 724.5 [facility] [address] [facility] [id number] [address] [place] [phone] Jan, [facility] [address] [id number] [address] [place] [phone] Dec, Diabetes 250.00 ; Benign ess ential hypertension 401.1 and Allergic rhinitis 477.9 [facility] [address] [id number] [address] [place] [phone] Dec, [facility] [address] [id number] [address] [place] [phone] Dec, [facility] [address] [facility] [id number] [address] [place] [phone] Dec, Psychosis 298.9 [facility] [address] [id number] [address] [place] [phone] Dec, Medication side effect 995.2 0 and Generalized anxiety disorder 300.02 [facility] [address] [id number] [address] [place] [phone] Dec, Acquired cognitive dysfuncti on 294.9 [facility] [address] [facility] [id number] [address] [place] [phone] Dec, [facility] [address] [id number] [address] [place] [phone] Dec, Unspecified myalgia and myos itis 729.1 and Generalized anxiety disorder 300.02 [facility] [address] [facility] [id number] [address] [place] [phone] Nov, [facility] [address] [place] [id number] [address] [place] [phone] Nov, [facility] [address] [facility] [id number] [address] [place] [phone] Nov, [facility] [address] [id number] [address] [place] [phone] Nov, Upper respiratory infection 465.9 and Chronic airway obstruction, not elsewhere classified 496 [facility] [address] [facility] [id number] [address] [place] [phone] Nov, Hyponatremia 276.1 [facility] [address] [facility] [id number] [address] [place] [phone] Oct, [facility] [address] [id number] [address] [place] [phone] Oct, [facility] [address] [id number] [address] [place] [phone] Oct, [facility] [address] [facility] [id number] [address] [place] [phone] Oct, [facility] [address] [facility] [id number] [address] [place] [phone] Oct, Hyponatremia 276.1 [facility] [address] [id number] [address] [place] [phone] Oct, [facility] [address] [id number] [address] [place] [phone] Oct, [facility] [address] [facility] [id number] [address] [place] [phone] Oct, Generalized anxiety disorder 300.02 [facility] [address] [id number] [address] [place] [phone] Oct, Generalized anxiety disorder 300.02 and Diabetes 250.00 [facility] [address] [id number] [address] [place] [phone] Aug, [facility] [address] [facility] [id number] [address] [place] [phone] Aug, [facility] [address] [id number] [address] [place] [phone] Jul, [facility] [address] [id number] [address] [place] [phone] Jul, [facility] [address] [id number] [address] [place] [phone] Jun, [facility] [address] [facility] [id number] [address] [place] [phone] Jun, [facility] [address] [id number] [address] [place] [phone] Jun, [facility] [address] [id number] [address] [place] [phone] Jun, [facility] [address] [id number] [address] [place] [phone] Jun, [facility] [address] [id number] [address] [place] [phone] May, [facility] [address] [id number] [address] [place] [phone] May, [facility] [address] [id number] [address] [place] [address], [place] [address] Apr, [facility] [address] [id number] [address] [place] [address], [place] [phone] Apr, [facility] [address] [id number] [address] [place] [address], [place] [address] Apr, [facility] [address] [id number] [address] [place] [address], [place] [address] Apr, [facility] [address] [id number] [address] [place] [address], [place] [address] Apr, [facility] [address] [id number] [address] [place] [address], [place] [address] Apr, [facility] [address] [id number] [address] [place] [address], [place] [address] Apr, [facility] [address] [id number] [address] [place] [address], [place] [address] Apr, [facility] [address] [id number] [address] [place] [address], [place] [address] Feb, [facility] [address] [id number] [address] [place] [address], [place] [address] Feb, [facility] [address] [id number] [address] [place] [address], [place] [address] Jan, [facility] [address] [id number] [address] [place] [phone] Jan, [facility] [address] [id number] [address] [place] [address], [place] [address] Dec, [facility] [address] [id number] [address] [place] [address], [place] [address] Dec, [facility] [address] [id number] [address] [place] [address], [place] [address] Dec, [facility] [address] [id number] [address] [place] [address], [place] [phone] Nov, [facility] [address] [id number] [address] [place] [address], [place] [address] Nov, [facility] [address] [id number] [address] [place] [address], [place] [address] Nov, [facility] [address] [id number] [address] [place] [address], [place] [address] Oct, [facility] [address] [id number] [address] [place] [address], [place] [address] Oct, [facility] [address] [id number] [address] [place] [address], [place] [address] Oct, [facility] [address] [id number] [address] [place] [address], [place] [address] September, [facility] [address] [id number] [address] [place] [address], [place] [address] September, [facility] [address] [id number] [address] [place] [address], [place] [address] September, [facility] [address] [id number] [address] [place] [address], [place] [address] Aug, [facility] [address] [id number] [address] [place] [address], [place] [address] Aug, [facility] [address] [id number] [address] [place] [address], [place] [address] Aug, [facility] [address] [id number] [address] [place] [address], [place] [address] 16 Aug, 2011 [facility] [address] [id number] [address] [place] [address], [place] [address] Jul, [facility] [address] [id number] [address] [place] [address], [place] [address] Jun, [facility] [address] [id number] [address] [place] [address], [place] [address] 14 Jun, 2011 [facility] [address] [id number] [address] [place] [address], [place] [address] 13 Jun, 2011 [facility] [address] [id number] [address] [place] [address], [place] [address] 07 Jun, 2011 [facility] [address] [id number] [address] [place] [address], [place] [address] 03 Jun, 2011 [facility] [address] [id number] [address] [place] [address], [place] [address] May, [facility] [address] [id number] [address] [place] [address], [place] [address] May, [facility] [address] [id number] [address] [place] [address], [place] [address] May, [facility] [address] [id number] [address] [place] [address], [place] [address] May, [facility] [address] [id number] [address] [place] [phone] Apr, [facility] [address] [id number] [address] [place] [address], [place] [address] Apr, [facility] [address] [id number] [address] [place] [phone] Apr, [facility] [address] [id number] [address] [place] [phone] Mar, [facility] [address] [id number] [address] [place] [phone] Mar, [facility] [address] [id number] [address] [place] [phone] Mar, [facility] [address] [id number] [address] [place] [phone] 13 Feb, 2011 [facility] [address] [id number] [address] [place] [phone] 13 Feb, 2011 [facility] [address] [id number] [address] [place] [phone] 13 Feb, 2011 [facility] [address] [id number] [address] [place] [phone] 11 Nov, 2010 [facility] [address] [id number] [address] [place] [id number] September, [facility] [address] [id number] [address] [place] [phone] Aug, [facility] [address] [id number] [address] [place] [phone] 14 Jul, 2010 [facility] [address] [id number] [address] [place] [phone] May, [facility] [address] [id number] [address] [place] [phone] Apr, [facility] [address] [id number] [address] [place] [phone] 30 Apr, 2010 [facility] [address] [id number] [address] [place] [phone] Apr, [facility] [address] [id number] [address] [place] [phone] Apr, [facility] [address] [id number] [address] [place] [phone] Apr, IMMUNIZATIONS No Known Immunizations SOCIAL HISTORY Never Assessed REASON FOR VISIT Medicare Juan M BASURTO PLAN OF CARE Activity Details Follow Up 1 Year Reason:AWV VITAL SIGNS Height 66 in 2018-07-22 Weight 100.7 lbs 2018-07-22 Temperature 98.3 degrees Fahrenheit 2018-07-22 Heart Rate 98 bpm 2018-07-22 Respiratory Rate 18 2018-07-22 BMI 16.25 kg/m2 2018-07-22 Blood pressure systolic 120 mmHg 2018-07-22 Blood pressure diastolic 68 mmHg 2018-07-22 MEDICATIONS Medication Instructions Dosage Frequency Start Date End Date Duration S tatus Propranolol HCl 20 mg Orally Twice a day 1 tablet 12h 30 Active Ibuprofen 600 MG 1 tablet with food or milk as needed 8h Active Zofran 8 MG Orally Twice a day 1 tablet 12h Mar, 30 day(s) Active Singulair 10 mg Orally Once a day 1 tablet in the evening 24h Oct, 30 day(s) Active Aspir-81 81 MG Orally Once a day 1 tablet 24h Active Trazodone HCl 100 mg Orally for sleep 1 tablet at bedtime 30 Active Topiramate 50 mg Orally Twice a day 1 tablet 12h Nov, 30 day(s) Active Benztropine Mesylate 0.5 MG Orally 3 times a day-Q AM, 4pm and bedtime for restlessness 1 tablet 30 Active [place] 7.5-325 MG Orally 3 times a day 1 tablet as needed 8h Jul, 28 days Active Levocetirizine Dihydrochloride 5 MG Orally Once a day 1 tablet i n the evening 24h 30 Active Insulin Pen Needle 32G X 6 MM subcutaneously Once a day use with pre-filled syringes 24h Oct, Active Flonase 50 mcg/act 1 spray in each nostril 12h 30 Active Lisinopril 40 mg Orally Once a day 1 tablet 24h Active Cipro 500 MG Orally every 12 hrs 1 tablet 12h 15 Jul, 2018 1 0 day(s) Active Gaviscon 80-14.2 MG Orally 4 times a day 4 tablet 6h Active Anoro Ellipta 62.5-25 MCG/INH Inhalation Once a day 1 puff 24h 30 Active Calcium 600 + D 600-200 MG-UNIT Active Metoprolol Tartrate 50 mg Orally Twice a day TAKE ONE TABLE T BY MOUTH TWICE DAILY WITH FOOD 12h Active Nmiifqawel-CZDW-Hnpstrnu 50-325-40 MG Orally 3 times a day 1 cap yg as needed 8h Jun, Not-Taking Baclofen 10 MG Orally Three times a day 1 tablet with food or milk 8h 30 Active BusPIRone HCl 15 mg Orally 3 times a day for anxiety 1 tablet Jan, Active Clonidine HCl 0.1 MG 1 tablet 8h 30 Ac tive Amlodipine Besylate 5 mg Orally Once a day 1 tablet 24h Active Detrol LA 4 MG Orally Once a day 1 capsule 24h 30 Active Spironolactone 25 MG Orally Once a day 1 tablet 24h 90 Active Amitiza 8 MCG Orally Twice a day 1 capsule with food 12h 2017Jul, 30 day(s) Active Ventolin HFA 108 (90 Base) MCG/ACT Inhalation every 4 hrs 2 puffs a s needed 4h Dec, Active Adderall XR 30 MG Orally 2 times a day 1 capsule 12h May, 10 days Active Adderall XR 30 MG Orally 2 times a day 1 capsule 12h Jul, 28 days Active Pulmicort Flexhaler 90 mcg/act Inhalation Twice a day 1 puff 12h Nov, Active Metformin HCl 1000 MG Orally Twice a day 1 tablet with meals 12h Aug, 30 day(s) Active Nebulizer 1 as directed Jul, Act minoo Glucosamine 1000 MG Orally Once a day 2 capsules 24h Active Lamictal 100 mg Orally 2 times a day for depression 1 tablet 30 Active Levemir FlexTouch 100 UNIT/ML Subcutaneous Once a day 7 units 24h September, 30 days Active Atorvastatin Calcium 10 mg Orally Once a day 1 tablet 24h Active Guaifenesin 400 mg Orally every 4 hrs 1 tablet 4h Active BusPIRone HCl 30 MG TAKE ONE-HALF TABLET BY MOUTH THREE (3) TIMES DAILY FOR ANXIETY 30 Active SudoGest 60 mg Orally every 6 hrs 1 tablet as needed 6h Mar, 8 Active Loxapine Succinate 25 MG Orally twice a day for mood 1 capsule Active MiraLax - Orally Once a day 1 packet mixed with 8 ounces of flui d 24h May, 30 day(s) Active Multivitamin Adult - Act minoo Xopenex 1.25 MG/3ML Inhalation 4 times a day prn 3 ml Dec, 30 days Active Jlkvdhxl-Zdlcensxq-NZ 3.5-37258-5 Otic Three times a day 4 d rops into affected ear 8h Feb, 7 days Active Lorazepam 1 MG Orally in the AM and noon and 4pm 1 tablet Jul, 28 days Active Dicyclomine HCl 20 mg Orally Four times a day 1 tablet 6h 1 8 Aug, 2017 Jul, 30 day(s) Active Nexium 40 mg 1 capsule 24h 30 Active Gabapentin 800 MG Orally Three times a day 1 tablet 8h Jul, Active RESULTS No Results PROCEDURES Procedure Date Ordered Result Body Site ALLYSSA SALVADOR VST; YO PPS INIT July 22, 2018 [facility] VISIT IPPE/AWV July 22, 2018 INSTRUCTIONS MEDICATIONS ADMINISTERED No Known Medications MEDICAL [...]
--- OUTSIDE RECORDS SUMMARY | 2019-07-17 10:41 | XMS REPORT ---
Author Author Sujey ROBLERO [facility] Address [address] [place] [address] Care Team Providers Care Advanced Nursing Professor Name Role Phone DORY ROBLERO Unavailable PROBLEMS Type Condition ICD9-CM Code RRC96-AE Code Onset Dates Condition S tatus SNOMED Code Problem Bipolar 1 disorder, depressed, moderate F31.32 Active 69189836 Problem Bipolar affective disorder, remission status unspecified F31.9 Active 56151054 Problem Chronic post-traumatic stress disorder (PTSD) F43. 12 Active 150190537 Problem Bipolar I disorder with depression F31.9 Active 24924758 Problem Attention deficit hyperactiv ity disorder (ADHD), predominantly inattentive type F90.0 Active 98489373 Problem Bipolar 1 disorder, depressed, partial remission F 31.75 Active 92869785 Problem Acute non-recurrent maxillary sinusitis J01.00 Active 40571307 Problem Slow transit constipation K59.01 Acti ve 39988214 Problem Lumbago with sciatica, left side M54.42 Active 392602722 Problem Essential tremor G25.0 Active 609 295284 Problem Chronic obstructive pulmonary disease, unspecified J44.9 Active 19695984 Problem Other chronic pain G89.29 Active 8 5394890 Problem Lumbago with sciatica, right side M54.41 Active 307045351 Problem Migraine without aura and without status migrain osus, not intractable G43.009 Active 372927384 Problem Akathisia G25.71 Active 002035513 Problem Fibrocystic disease of right breast N60.11 Active 04285386 Problem Back pain M54.9 Active 955074246 Problem Fibrocystic disease of left breast N60.12 Active 45028436 Problem Hypertension I10 Active 0405621 3 Problem Irritable bowel syndrome with constipation K58.1 Active 123276366 Problem Other bipolar disorder F31.89 Active 95753963 Problem Arthritis M19.90 Active 7749159 Problem Anxiety disorder, unspecified F41.9 Active 155297766 Problem Schizoaffective disorder, bipolar type F25.0 Active 23181570 Problem Panic disorder with agoraphobia F40.01 Active 09956726 Problem Irritable bowel syndrome with both constipation and diarrh ea K58.2 Active 39378940 Problem Fibromyalgia M79.7 Active 3674803 7 Problem Daytime somnolence R40.0 Active 1 98673663478 Problem Abnormal mammogram of right breast R92.8 Active 173474845 Problem Tinnitus of right ear H93.11 Active 61623265 Problem Diffuse cystic mastopathy of right breast N60.11 Active 91066131 Problem Moderate persistent asthma without complication J4 5.40 Active 327051609 Problem Hemiplegia and hemiparesis f ollowing unspecified cerebrovascular disease affecting right dominant side I69.951 Active 706759372 Problem Mild persistent asthma without complication J45.30 Active 786023534 Problem GERD (gastroesophageal reflux disease) K21.9 Active 632238243 Problem Panlobular emphysema J43.1 Active 1607753 Problem Tinnitus of both ears H93.13 Active 2565268999452 Problem Contracture, left hand M24.542 Active 856283532307893 Problem Diabetes E11.9 Active 84422873 Problem Mood disorder F39 Active 424342 05 Problem Diffuse cystic mastopathy of left breast N60.12 Active 80618578 ALLERGIES No Information ENCOUNTERS Encounter Location Date Diagnosis [place] [address] [id number] [address] [place] [id number] Dec, [place] [address] [id number] [address] [place] [id number] Nov, Hip pain, left M25.552 [facility] [address] [id number] [address] [place] [id number] Nov, [facility] [address] [id number] [address] [place] [id number] Nov, [place] [address] [id number] [address] [place] [id number] Nov, Hemiplegia and hemiparesis f ollowing unspecified cerebrovascular disease affecting right dominant side I69.951 ; Diabetes E11.9 ; Daytime somnolence R40.0 and Other chronic pain G89.29 [facility] [address] [id number] [address] [place] [id number] Nov, [facility] [address] [id number] [address] [place] [id number] Nov, [facility] [address] [id number] [address] [place] [id number] Nov, Hemiplegia and hemiparesis f ollowing unspecified cerebrovascular disease affecting right dominant side I69.951 ; Lower leg edema R60.0 and Plantar fasciitis, bilateral M72.2 [facility] [address] [id number] [address] [place] [id number] Oct, [facility] [address] [id number] [address] [place] [id number] Oct, Daytime somnolence R40.0 ; D iabetes E11.9 and Other chronic pain G89.29 [facility] [address] [id number] [address] [place] [id number] Oct, Edema, lower extremity R60.0 and Hip pain, left M25.552 [facility] [address] [id number] [address] [place] [id number] Oct, [facility] [address] [id number] [address] [place] [id number] September, [facility] [address] [id number] [address] [place] [id number] September, Diabetes E11.9 and Other chr onic pain G89.29 [facility] [address] [id number] [address] [place] [id number] September, Diabetes E11.9 and Other chr onic pain G89.29 [facility] [address] [id number] [address] [place] [id number] September, [facility] [address] [id number] [address] [place] [id number] Aug, [place] [address] [id number] [address] [place] [id number] Aug, Hypertension I10 [place] [address] [id number] [address] [place] [id number] Aug, [facility] [address] [id number] [address] [place] [id number] Aug, [place] [address] [id number] [address] [place] [id number] Aug, Diabetes E11.9 and Edema of both legs R60.0 [place] [address] [id number] [address] [place] [id number] Aug, Panic disorder with agorapho syd F40.01 ; Other chronic pain G89.29 and Daytime somnolence R40.0 [place] [address] [id number] [address] [place] [id number] Jul, [place] [address] [id number] [address] [place] [id number] Jul, [place] [address] [id number] [address] [place] [id number] Jul, Diffuse cystic mastopathy of left breast N60.12 and Diffuse cystic mastopathy of right breast N60.11 [place] [address] [id number] [address] [place] [id number] Jul, Fibrocystic disease of right breast N60.11 [place] [address] [id number] [address] [place] [id number] Jul, Fibrocystic disease of right breast N60.11 and Fibrocystic disease of left breast N60.12 [place] [address] [id number] [address] [place] [id number] Jul, Encounter for Medicare annua l wellness exam Z00.00 ; Schizoaffective disorder, bipolar type F25.0 ; Chronic obstructive pulmonary disease, unspecified J44.9 ; Fibromyalgia M79.7 and Acute non-recurrent maxillary sinusitis J01.00 [facility] [address] [id number] [address] [place] [id number] 14 Jul, 2018 Daytime somnolence R40.0 [facility] [address] [id number] [address] [place] [id number] 14 Jul, 2018 [facility] [address] [place] [id number] [place] [id number] 13 Jul, 2018 [facility] [address] [id number] [address] [place] [id number] Jul, Panic disorder with agorapho syd F40.01 ; Anxiety disorder, unspecified F41.9 ; Other chronic pain G89.29 and Daytime somnolence R40.0 [facility] [address] [place] [id number] [address] [place] [id number] Jul, [facility] [address] [id number] [address] [place] [id number] Jun, [facility] [address] [place] [id number] [address] [place] [id number] 08 Jun, 2018 Hip pain, left M25.552 ; Leg pain, left M79.605 ; Lumbar pain M54.5 and Mood disorder F39 [facility] [address] [place] [id number] [address] [place] [id number] 08 Jun, 2018 Diabetes E11.9 ; Other chron ic pain G89.29 and Anxiety disorder, unspecified F41.9 [facility] [address] [id number] [address] [place] [id number] Jun, Hip pain, left M25.552 ; Leg pain, left M79.605 ; Lumbar pain M54.5 and Mood disorder F39 [facility] [address] [place] [id number] [address] [place] [id number] May, Diabetes E11.9 [facility] [address] [place] [id number] [address] [place] [id number] May, [place] [address] [id number] [address] [place] [id number] May, Other chronic pain G89.29 an d Anxiety disorder, unspecified F41.9 [place] [address] [id number] [address] [place] [id number] May, [place] [address] [id number] [address] [place] [id number] May, [place] [address] [id number] [address] [place] [id number] May, Tinnitus of right ear H93.11 [place] [address] [id number] [address] [place] [id number] May, Diabetes E11.9 ; Tinnitus of both ears H93.13 ; Contracture, left hand M24.542 and Family history of rheumatic joint disease Z82.69 [place] [address] [id number] [address] [place] [id number] Apr, [place] [address] [id number] [address] [place] [id number] Apr, [place] [address] [id number] [address] [place] [id number] Apr, Tinnitus of right ear H93.11 and Hypertension I10 [place] [address] [id number] [address] [place] [id number] Apr, Other chronic pain G89.29 ; Daytime somnolence R40.0 and Anxiety disorder, unspecified F41.9 [place] [address] [id number] [address] [place] [id number] Apr, [place] [address] [id number] [address] [place] [id number] Apr, [place] [address] [id number] [address] [place] [id number] Mar, Tinnitus of right ear H93.11 [facility] [address] [id number] [address] [place] [id number] Mar, [facility] [address] [id number] [address] [place] [id number] Mar, Anxiety disorder, unspecifie d F41.9 ; Other chronic pain G89.29 and Daytime somnolence R40.0 [facility] [address] [id number] [address] [place] [id number] Mar, Irritable bowel syndrome wit h both constipation and diarrhea K58.2 [facility] [address] [id number] [address] [place] [id number] Mar, [facility] [address] [id number] [address] [place] [id number] Mar, Hypertension I10 [facility] [address] [place] [id number] [address] [place] [id number] Mar, [facility] [address] [id number] [address] [place] [id number] Mar, [facility] [address] [place] [id number] [place] [id number] Mar, [facility] [address] [place] [id number] [address] [place] [id number] Mar, Diabetes E11.9 [facility] [address] [place] [id number] [address] [place] [id number] Mar, [facility] [address] [id number] [address] [place] [id number] Feb, Daytime somnolence R40.0 and Anxiety disorder, unspecified F41.9 [facility] [address] [id number] [address] [place] [id number] Feb, [facility] [address] [id number] [address] [place] [id number] Feb, [facility] [address] [id number] [address] [place] [id number] Feb, Tremors of nervous system R2 5.1 and Acute swimmer''s ear of right side H60.331 [facility] [address] [id number] [address] [place] [id number] Feb, Cerebrovascular accident (CV A) due to occlusion of right cerebellar artery I63.541 and Hypertension I10 [facility] [address] [id number] [address] [place] [id number] Feb, [facility] [address] [id number] [address] [place] [id number] Feb, Cerebrovascular accident (CV A) due to occlusion of right cerebellar artery I63.541 [facility] [address] [facility] [id number] [place] [id number] Feb, Hyponatremia E87.1 [place] [address] [id number] [address] [place] [id number] Feb, [place] [address] [id number] [address] [place] [id number] Feb, Daytime somnolence R40.0 [place] [address] [id number] [address] [place] [id number] Feb, [place] [address] [id number] [address] [place] [id number] Jan, [place] [address] [id number] [address] [place] [id number] Jan, [place] [address] [id number] [address] [place] [id number] Jan, Chronic obstructive pulmonar y disease, unspecified J44.9 and Anxiety disorder, unspecified F41.9 [facility] [address] [id number] [address] [place] [id number] Jan, Hypertension I10 ; Fibromyal medhat M79.7 and Lumbago with sciatica, left side M54.42 [facility] [address] [id number] [address] [place] [id number] 26 Jan, 2018 [facility] [address] [id number] [address] [place] [id number] 20 Jan, 2018 Cerebrovascular accident (CV A) due to occlusion of right cerebellar artery I63.541 [facility] [address] [place] [id number] [place] [id number] 19 Jan, 2018 [facility] [address] [place] [id number] [place] [id number] 13 Jan, 2018 Arthritis M19.90 [place] [address] [place] [id number] [place] [id number] 07 Jan, 2018 [place] [address] [place] [address] [id number] [place] [id number] 04 Jan, 2018 Abnormal mammogram of right breast R92.8 [place] [address] [place] [address] [id number] [place] [id number] Dec, Daytime somnolence R40.0 and Right otitis media with effusion H65.91 [place] [address] [place] [address] [id number] [place] [id number] Dec, [place] [address] [place] [address] [id number] [place] [id number] Dec, Cerebrovascular accident (CV A) due to occlusion of right cerebellar artery I63.541 [facility] [address] [place] [id number] [place] [id number] Dec, [place] [address] [id number] [address] [place] [id number] Dec, [place] [address] [place] [address] [id number] [place] [id number] Nov, Bipolar 1 disorder, depresse d, partial remission F31.75 and Panic disorder with agoraphobia F40.01 [place] [address] [place] [address] [id number] [place] [id number] Nov, Panlobular emphysema J43.1 [facility] [address] [id number] [address] [place] [id number] Nov, Cerebrovascular accident (CV A) due to occlusion of right cerebellar artery I63.541 and Acute non-recurrent maxillary sinusitis J01.00 [facility] [address] [id number] [address] [place] [id number] Nov, Panlobular emphysema J43.1 [facility] [address] [id number] [address] [place] [id number] Nov, [facility] [address] [id number] [address] [place] [id number] Nov, [facility] [address] [id number] [address] [place] [id number] Nov, [facility] [address] [id number] [address] [place] [id number] Nov, [facility] [address] [id number] [address] [place] [id number] Nov, [facility] [address] [id number] [address] [place] [id number] Nov, [facility] [address] [id number] [address] [place] [id number] Nov, [facility] [address] [id number] [address] [place] [id number] Nov, Mild persistent asthma witho ut complication J45.30 and Irritable bowel syndrome with both constipation and diarrhea K58.2 [facility] [address] [id number] [address] [place] [id number] Nov, [facility] [address] [id number] [address] [place] [id number] Oct, [facility] [address] [id number] [address] [place] [id number] Oct, [facility] [address] [id number] [address] [place] [id number] Oct, Type 2 diabetes mellitus wit h diabetic neuropathy, unspecified whether intermodal customer service insulin use E11.40 ; Diabetes E11.9 ; Slow transit constipation K59.01 ; Edema of both legs R60.0 and Dysfunction of right eustachian tube H69.81 [facility] [address] [id number] [address] [place] [id number] Oct, Frequent headaches R51 [facility] [address] [id number] [address] [place] [id number] Oct, [facility] [address] [id number] [address] [place] [id number] Oct, [facility] [address] [id number] [address] [place] [id number] Oct, [facility] [address] [id number] [address] [place] [id number] Oct, [facility] [address] [id number] [address] [place] [id number] Oct, [facility] [address] [id number] [address] [place] [id number] Oct, [facility] [address] [id number] [address] [place] [id number] Oct, [facility] [address] [id number] [address] [place] [id number] Oct, [facility] [address] [id number] [address] [place] [id number] September, Frequent headaches R51 [facility] [address] [id number] [address] [place] [id number] September, Bilateral otitis media with effusion H65.93 ; Dizziness R42 and Essential tremor G25.0 [facility] [address] [id number] [address] [place] [id number] September, Chronic obstructive pulmonar y disease, unspecified COPD type J44.9 [facility] [address] [id number] [address] [place] [id number] September, Chronic obstructive pulmonar y disease, unspecified COPD type J44.9 [facility] [address] [id number] [address] [place] [id number] September, Migraine without aura and wi thout status migrainosus, not intractable G43.009 [facility] [address] [id number] [address] [place] [id number] September, [facility] [address] [id number] [address] [place] [id number] September, [facility] [address] [id number] [address] [place] [id number] September, [facility] [address] [id number] [address] [place] [id number] September, Frequent headaches R51 [facility] [address] [id number] [address] [place] [id number] Aug, [facility] [address] [id number] [address] [place] [id number] Aug, Breast mass, right N63.10 [facility] [address] [id number] [address] [place] [id number] Aug, Breast lump N63.0 [facility] [address] [id number] [address] [place] [id number] Aug, [facility] [address] [id number] [address] [place] [id number] Aug, Bipolar affective disorder, remission status unspecified F31.9 and Diabetes E11.9 [facility] [address] [id number] [address] [place] [address] Aug, Diabetes E11.9 ; Schizoaffec tive disorder, bipolar type F25.0 ; Pharyngitis due to other organism J02.8 ; Panlobular emphysema J43.1 and Irritable bowel syndrome with both constipation and diarrhea K58.2 [facility] [address] [id number] [address] [place] [id number] Aug, Abnormal mammogram R92.8 [facility] [address] [id number] [address] [place] [id number] Aug, [facility] [address] [id number] [address] [place] [id number] Aug, Bipolar 1 disorder, depresse d, moderate F31.32 ; Panic disorder with agoraphobia F40.01 and Chronic post-traumatic stress disorder (PTSD) F43.12 [place] [address] [id number] [address] [place] [id number] Aug, [place] [address] [id number] [address] [place] [id number] Aug, [facility] [address] [id number] [address] [place] [id number] Aug, [facility] [address] [id number] [address] [place] [id number] Jul, [place] [address] [id number] [address] [place] [id number] Jul, Mild persistent asthma witho ut complication J45.30 [place] [address] [id number] [address] [place] [id number] Jul, Mild persistent asthma witho ut complication J45.30 [place] [address] [id number] [address] [place] [id number] 15 Jul, 2017 Bipolar affective disorder, remission status unspecified F31.9 ; Diabetes E11.9 and Irritable bowel syndrome with constipation K58.1 [place] [address] [id number] [address] [place] [id number] Jul, [facility] [address] [id number] [address] [place] [id number] Jul, [facility] [address] [id number] [address] [place] [id number] Jul, Frequent headaches R51 [facility] [address] [id number] [address] [place] [id number] Jul, [facility] [address] [id number] [address] [place] [id number] Jul, [facility] [address] [id number] [address] [place] [id number] Jul, [facility] [address] [id number] [address] [place] [id number] Jul, Frequent headaches R51 ; Fib rocystic disease of left breast N60.12 ; Fibrocystic disease of right breast N60.11 and Diabetes E11.9 [place] [address] [id number] [address] [place] [phone] Jul, [facility] [address] [id number] [address] [place] [id number] Jul, [place] [address] [id number] [address] [place] [id number] 21 Jun, 2017 Exudative tonsillitis J03.90 [place] [address] [place] [id number] [address] [place] [phone] Jun, [place] [address] [id number] [address] [place] [id number] 19 Jun, 2017 [place] [address] [id number] [address] [place] [id number] 15 Jun, 2017 Mild persistent asthma witho ut complication J45.30 ; Chronic obstructive pulmonary disease, unspecified COPD type J44.9 and Exudative tonsillitis J03.90 [place] [address] [id number] [address] [place] [id number] 13 Jun, 2017 Encounter for immunization Z 23 [place] [address] [id number] [address] [place] [id number] Jun, [facility] [address] [id number] [address] [place] [id number] Jun, [facility] [address] [id number] [address] [place] [id number] Jun, [facility] [address] [id number] [address] [place] [id number] Jun, Tonsillitis J03.90 [facility] [address] [id number] [address] [place] [id number] Jun, [facility] [address] [id number] [place] [id number] Jun, Acute non-recurrent maxillar y sinusitis J01.00 [facility] [address] [place] [id number] [address] [place] [id number] Jun, [facility] [address] [id number] [address] [place] [id number] May, [facility] [address] [id number] May, [facility] [address] [place] [address] [id number] [address] [place] [id number] May, GERD (gastroesophageal reflu x disease) K21.9 [facility] [address] [id number] [address] [place] [id number] May, Migraine without aura and wi thout status migrainosus, not intractable G43.009 [facility] [address] [id number] [address] [place] [id number] May, [facility] [address] [place] [address] [id number] [place] [id number] May, [facility] [address] [id number] [address] [place] [id number] May, Panlobular emphysema J43.1 a nd Acute non-recurrent maxillary sinusitis J01.00 [facility] [address] [id number] [address] [place] [id number] May, Bipolar 1 disorder, depresse d, moderate F31.32 ; Panic disorder with agoraphobia F40.01 and Akathisia G25.71 [facility] [address] [id number] [address] [place] [id number] Apr, [facility] [address] [id number] [address] [place] [id number] Apr, [place] [address] [id number] [address] [place] [id number] Apr, Acute non-recurrent maxillar y sinusitis J01.00 [place] [address] [id number] [address] [place] [id number] Apr, Panlobular emphysema J43.1 [facility] [address] [id number] [address] [place] [id number] 04 Apr, 2017 [facility] [address] [id number] [address] [place] [id number] 04 Apr, 2017 Exudative tonsillitis J03.90 and Sore throat J02.9 [facility] [address] [id number] [address] [place] [id number] 17 Mar, 2017 [facility] [address] [id number] [address] [place] [id number] 15 Mar, 2017 Acute non-recurrent maxillar y sinusitis J01.00 [facility] [address] [id number] [address] [place] [id number] Mar, [facility] [address] [id number] [address] [place] [id number] 09 Mar, 2017 Panlobular emphysema J43.1 a nd Diabetes E11.9 [facility] [address] [id number] [address] [place] [id number] Mar, [facility] [address] [id number] [address] [place] [id number] Feb, Wheezing R06.2 and Acute rec urrent pansinusitis J01.41 [facility] [address] [id number] [address] [place] [id number] Feb, [facility] [address] [id number] [address] [place] [id number] Feb, Acute non-recurrent maxillar y sinusitis J01.00 [facility] [address] [id number] [address] [place] [id number] Feb, Chronic obstructive pulmonar y disease, unspecified J44.9 [facility] [address] [id number] [address] [place] [id number] Feb, Hypoxemia R09.02 and Chronic obstructive pulmonary disease, unspecified J44.9 [facility] [address] [id number] [address] [place] [id number] 28 Jan, 2017 Bipolar 1 disorder, depresse d, moderate F31.32 ; Panic disorder with agoraphobia F40.01 ; Chronic post-traumatic stress disorder (PTSD) F43.12 ; Diabetes E11.9 and Moderate persistent asthma without complication J45.40 [facility] [address] [id number] [address] [place] [id number] Jan, [facility] [address] [id number] [address] [place] [id number] 19 Jan, 2017 Acute non-recurrent maxillar y sinusitis J01.00 [facility] [address] [id number] [address] [place] [id number] 18 Jan, 2017 [facility] [address] [id number] [address] [place] [id number] 18 Jan, 2017 [facility] [address] [id number] [address] [place] [id number] Jan, Moderate persistent asthma w [facility] complication J45.40 and Hypoxemia R09.02 [facility] [address] [id number] [address] [place] [id number] Jan, Moderate persistent asthma w [facility] complication J45.40 and Hypoxemia R09.02 [facility] [address] [id number] [address] [place] [id number] Jan, [facility] [address] [id number] [address] [place] [id number] Dec, Acute non-recurrent maxillar y sinusitis J01.00 [facility] [address] [id number] [address] [place] [id number] Dec, Chronic obstructive pulmonar y disease, unspecified J44.9 [facility] [address] [id number] [address] [place] [id number] Dec, [facility] [address] [id number] [address] [place] [id number] Dec, [facility] J[facility].30 and Other chronic pain G89.29 [facility] [address] [id number] [address] [place] [id number] Nov, [facility] [address] [id number] [address] [place] [id number] Nov, Acute non-recurrent maxillar y sinusitis J01.00 [facility] [address] [id number] [address] [place] [id number] Nov, [facility] [address] [id number] [address] [place] [id number] Nov, [facility] [address] [id number] [address] [place] [id number] Oct, [facility] [address] [id number] [address] [place] [id number] Oct, Bipolar 1 disorder, depresse d, partial remission F31.75 ; Panic disorder with agoraphobia F40.01 and Chronic post-traumatic stress disorder (PTSD) F43.12 [facility] [address] [id number] [address] [place] [id number] Oct, Acute non-recurrent maxillar y sinusitis J01.00 [facility] [address] [id number] [address] [place] [id number] Oct, [facility] [address] [id number] [address] [place] [id number] Oct, Diabetes E11.9 [facility] [address] [id number] [address] [place] [id number] September, Diabetes E11.9 [facility] [address] [id number] [address] [place] [id number] September, Diabetes E11.9 and Sinus tac hycardia R00.0 [facility] [address] [id number] [address] [place] [id number] September, [facility] [address] [id number] [address] [place] [id number] September, [facility] [address] [id number] [address] [place] [id number] Aug, Diabetes E11.9 and Lumbago w ith sciatica, right side M54.41 [facility] [address] [id number] [address] [place] [id number] Aug, [facility] [address] [id number] [address] [place] [id number] Jul, Bipolar 1 disorder, depresse d, moderate F31.32 ; Panic disorder with agoraphobia F40.01 and Chronic post-traumatic stress disorder (PTSD) F43.12 [facility] [address] [id number] [address] [place] [id number] Jul, Sore throat J02.9 [facility] [address] [id number] [address] [place] [id number] Jul, [facility] [address] [id number] [address] [place] [id number] Jul, [facility] [address] [id number] [address] [place] [id number] Jul, [facility] [address] [id number] [address] [place] [id number] Jul, [facility] [address] [id number] [address] [place] [id number] Jul, Sore throat J02.9 and Pharyn gitis, unspecified etiology J02.9 [facility] [address] [id number] [address] [place] [id number] Jun, [facility] [address] [id number] [address] [place] [id number] 23 Jun, 2016 Diabetes E11.9 [facility] [address] [id number] [address] [place] [id number] Jun, [facility] [address] [id number] [address] [place] [id number] Jun, [facility] [address] [id number] [address] [place] [id number] Jun, [facility] [address] [id number] [address] [place] [id number] Jun, [facility] [address] [id number] [address] [place] [id number] Jun, [facility] [address] [id number] [address] [place] [id number] 15 Jun, 2016 [facility] [address] [id number] [address] [place] [id number] Jun, [facility] [address] [id number] [address] [place] [id number] Jun, [facility] [address] [id number] [address] [place] [id number] May, Diabetes E11.9 ; Other chron ic pain G89.29 ; Acute recurrent maxillary sinusitis J01.01 ; Bipolar I disorder with depression F31.9 and Anxiety disorder, unspecified F41.9 [facility] [address] [id number] [address] [place] [id number] May, [place] [address] [id number] [address] [place] [id number] May, Diabetes E11.9 ; Bipolar I d isorder with depression F31.9 ; Anxiety disorder, unspecified F41.9 ; Other chronic pain G89.29 and Acute recurrent maxillary sinusitis J01.01 [place] [address] [place] [id number] [address] [place] [id number] May, [place] [address] [id number] [address] [place] [id number] May, Attention deficit hyperactiv ity disorder (ADHD), predominantly inattentive type F90.0 [place] [address] [place] [id number] [address] [place] [id number] May, [place] [address] [place] [address] [id number] [place] [id number] Apr, Attention deficit hyperactiv ity disorder (ADHD), predominantly inattentive type F90.0 and Non-seasonal allergic rhinitis due to other allergic trigger J30.89 [place] [address] [place] [id number] [address] [place] [id number] Apr, Bipolar 1 disorder, depresse d, moderate F31.32 ; Panic disorder with agoraphobia F40.01 and Chronic post-traumatic stress disorder (PTSD) F43.12 [place] [address] [place] [address] [id number] [address] [place] [id number] Apr, Dental examination Z01.20 [place] [address] [place] [id number] [address] [place] [id number] Mar, [place] [address] [place] [id number] [place] [id number] Mar, [facility] [address] [id number] [address] [place] [id number] Mar, Bipolar I disorder with depr ession F31.9 and Anxiety disorder, unspecified F41.9 [facility] [address] [id number] [address] [place] [id number] 08 Mar, 2016 Panic disorder with agorapho syd F40.01 ; Bipolar 1 disorder, depressed, moderate F31.32 and Chronic post-traumatic stress disorder (PTSD) F43.12 [facility] [address] [id number] [address] [place] [id number] Mar, [facility] [address] [id number] [address] [place] [id number] Mar, Dental caries K02.9 [facility] [address] [id number] [address] [place] [id number] 24 Feb, 2016 Lumbago with sciatica, left side M54.42 ; Lumbago with sciatica, right side M54.41 and Other chronic pain G89.29 [facility] [address] [id number] [address] [place] [id number] Feb, [facility] [address] [id number] [address] [place] [id number] 14 Feb, 2016 [facility] [address] [id number] [address] [place] [id number] 13 Feb, 2016 Bipolar I disorder with depr ession F31.9 ; PTSD (post-traumatic stress disorder) F43.10 and Mood disorder F39 [facility] [address] [id number] [address] [place] [id number] Feb, [facility] [address] [id number] [address] [place] [id number] 11 Feb, 2016 Dental examination Z01.20 [facility] [address] [id number] [address] [place] [id number] Feb, [facility] [address] [id number] [address] [place] [id number] Feb, Acute bronchitis, unspecifie d organism J20.9 [facility] [address] [id number] [address] [place] [id number] Jan, Mood disorder F39 ; Migraine without aura and without status migrainosus, not intractable G43.009 ; Irritable bowel syndrome, unspecified type K58.9 ; Diabetes E11.9 and Encounter for immunization Z23 [facility] [address] [id number] [address] [place] [id number] Jan, [facility] [address] [id number] Jan, [place] [address] [id number] Jan, [facility] [address] [id number] Jan, [facility] [address] [id number] Jan, [facility] [address] [id number] Dec, Bipolar I disorder with depr ession F31.9 ; PTSD (post-traumatic stress disorder) F43.10 and Panic disorder with agoraphobia F40.01 [facility] [address] [place] [id number] [address] [place] [id number] Dec, Chronic obstructive pulmonar y disease, unspecified COPD type J44.9 ; Tremor R25.1 and Anxiety F41.9 [facility] [address] [id number] Dec, [place] [address] [id number] Nov, Tremors of nervous system R2 5.1 and Cramping of feet R25.2 [place] [address] [id number] [address] [place] [id number] Nov, [facility] [address] [id number] [address] [place] [id number] Nov, [facility] [address] [id number] [address] [place] [id number] Oct, Chronic obstructive pulmonar y disease, unspecified J44.9 [facility] [address] [id number] [address] [place] [id number] Oct, [facility] [address] [id number] [address] [place] [id number] Oct, Tremor R25.1 [facility] [address] [id number] [address] [place] [id number] Oct, Bipolar I disorder with depr ession F31.9 ; Diabetes E11.9 ; PTSD (post-traumatic stress disorder) F43.10 and Panic disorder with agoraphobia F40.01 [facility] [address] [id number] [address] [place] [id number] Oct, Mood disorder F39 [facility] [address] [id number] [address] [place] [id number] September, [facility] [address] [id number] [address] [place] [id number] September, Diabetes E11.9 ; Bipolar I d isorder with depression F31.9 ; PTSD (post-traumatic stress disorder) F43.10 and Panic disorder with agoraphobia F40.01 [facility] [address] [id number] [address] [place] [id number] September, Mood disorder F39 ; Schizoaf fective disorder, unspecified type F25.9 ; Arthritis M19.90 ; Tremor R25.1 ; Acute non-recurrent frontal sinusitis J01.10 and Blood in stool K92.1 [facility] [address] [id number] [address] [place] [id number] September, [facility] [address] [id number] [address] [place] [id number] September, Chronic obstructive pulmonar y disease, unspecified J44.9 [facility] [address] [id number] [address] [place] [id number] September, Diabetes E11.9 [facility] [address] [id number] [address] [place] [id number] Aug, Other bipolar disorder F31.8 9 and Anxiety disorder, unspecified F41.9 [facility] [address] [id number] [address] [place] [id number] Aug, [facility] [address] [id number] [address] [place] [id number] Aug, Diabetes E11.9 [facility] [address] [id number] [address] [place] [id number] 18 Aug, 2015 [facility] [address] [id number] [address] [place] [id number] 14 Aug, 2015 Diabetes E11.9 ; Fatigue R53 .83 and Dizziness R42 [facility] [address] [id number] [address] [place] [id number] Aug, Other bipolar disorder F31.8 9 [facility] [address] [id number] [address] [place] [id number] Aug, Generalized anxiety disorder F41.1 [facility] [address] [id number] [address] [place] [id number] Aug, Other bipolar disorder F31.8 9 and Anxiety disorder, unspecified F41.9 [facility] [address] [id number] [address] [place] [id number] Aug, [facility] [address] [id number] [address] [place] [id number] Jul, [facility] [address] [id number] [address] [place] [id number] Jul, [facility] [address] [id number] [address] [place] [id number] Jul, Bronchitis J40 [facility] [address] [id number] [address] [place] [id number] Jul, Anxiety disorder F41.9 [facility] [address] [id number] [address] [place] [id number] Jul, Other bipolar disorder F31.8 9 and Anxiety disorder, unspecified F41.9 [facility] [address] [id number] [address] [place] [id number] Jul, Other bipolar disorder F31.8 9 and Fibromyalgia M79.7 [facility] [address] [id number] [address] [place] [id number] Jul, [facility] [address] [id number] [address] [place] [id number] Jul, [facility] [address] [id number] [address] [place] [id number] Jul, [facility] [address] [id number] [address] [place] [id number] Jul, Other bipolar disorder F31.8 9 and Anxiety disorder, unspecified F41.9 [facility] [address] [id number] [address] [place] [id number] Jun, GERD (gastroesophageal reflu x disease) K21.9 [facility] [address] [id number] [address] [place] [id number] Jun, [facility] [address] [id number] [address] [place] [id number] May, [facility] [address] [id number] [address] [place] [id number] May, Diabetes E11.9 ; Back pain M 54.9 ; GERD (gastroesophageal reflux disease) K21.9 ; Hypertension I10 and Peripheral neuropathy G62.9 [facility] [address] [id number] [address] [place] [id number] Mar, [facility] [address] [id number] [address] [place] [id number] Mar, [facility] [address] [id number] [address] [place] [id number] Mar, Acute sinusitis J01.90 and O titis media, left H66.92 [facility] [address] [id number] [address] [place] [id number] Feb, [facility] [address] [id number] [address] [place] [id number] Feb, [facility] [address] [id number] [address] [place] [id number] Feb, [facility] [address] [id number] [address] [place] [id number] Feb, [facility] [address] [id number] [address] [place] [id number] Jan, [facility] [address] [id number] [address] [place] [id number] Jan, Diabetes 250.00 and Back higinio n 724.5 [facility] [address] [id number] [address] [place] [id number] Jan, [facility] [address] [id number] [address] [place] [id number] Dec, Diabetes 250.00 ; Benign ess ential hypertension 401.1 and Allergic rhinitis 477.9 [facility] [address] [id number] [address] [place] [id number] Dec, [facility] [address] [id number] [address] [place] [id number] Dec, [facility] [address] [id number] [address] [place] [id number] Dec, Psychosis 298.9 [facility] [address] [id number] [address] [place] [id number] Dec, Medication side effect 995.2 0 and Generalized anxiety disorder 300.02 [facility] [address] [id number] [address] [place] [id number] Dec, Acquired cognitive dysfuncti on 294.9 [facility] [address] [id number] [address] [place] [id number] Dec, [facility] [address] [id number] [address] [place] [id number] Dec, Unspecified myalgia and myos itis 729.1 and Generalized anxiety disorder 300.02 [facility] [address] [id number] [address] [place] [id number] Nov, [facility] [address] [id number] [address] [place] [id number] Nov, [facility] [address] [id number] [address] [place] [id number] Nov, [facility] [address] [id number] [address] [place] [id number] Nov, Upper respiratory infection 465.9 and Chronic airway obstruction, not elsewhere classified 496 [facility] [address] [id number] [address] [place] [id number] Nov, Hyponatremia 276.1 [facility] [address] [id number] [address] [place] [id number] Oct, [facility] [address] [id number] [address] [place] [id number] Oct, [facility] [address] [id number] [address] [place] [id number] Oct, [facility] [address] [id number] [address] [place] [phone] Oct, [facility] [address] [id number] [address] [place] [id number] Oct, 2014 Hyponatremia 276.1 [facility] [address] [id number] [address] [place] [id number] Oct, [facility] [address] [id number] [address] [place] [phone] Oct, [facility] [address] [id number] [address] [place] [id number] Oct, Generalized anxiety disorder 300.02 [facility] [address] [id number] [address] [place] [id number] Oct, Generalized anxiety disorder 300.02 and Diabetes 250.00 [facility] [address] [id number] [address] [place] [id number] Aug, [facility] [address] [id number] [address] [place] [id number] Aug, [facility] [address] [id number] [address] [place] [phone] Jul, [facility] [address] [id number] [address] [place] [phone] Jul, [facility] [address] [id number] [address] [place] [phone] Jun, [facility] [address] [id number] [address] [place] [id number] Jun, [facility] [address] [id number] [address] [place] [phone] Jun, [facility] [address] [id number] [address] [place] [id number] Jun, [facility] [address] [id number] [address] [place] [phone] Jun, [facility] [address] [id number] [address] [place] [phone] May, [facility] [address] [id number] [address] [place] [address], [place] [id number] May, [facility] [address] [id number] [address] [place] [address], [place] [id number] Apr, [facility] [address] [id number] [address] [place] [address], [place] [id number] Apr, [facility] [address] [id number] [address] [place] [address], [place] [id number] Apr, [facility] [address] [id number] [address] [place] [address], [place] [id number] Apr, [facility] [address] [id number] [address] [place] [address], [place] [id number] Apr, [facility] [address] [id number] [address] [place] [address], [place] [id number] Apr, [facility] [address] [id number] [address] [place] [address], [place] [id number] Apr, [facility] [address] [id number] [address] [place] [address], [place] [id number] Apr, [facility] [address] [id number] [address] [place] [address], [place] [id number] Feb, [facility] [address] [id number] [address] [place] [address], [place] [id number] Feb, [facility] [address] [id number] [address] [place] [address], [place] [id number] Jan, [facility] [address] [id number] [address] [place] [address], [place] [id number] Jan, [facility] [address] [id number] [address] [place] [address], [place] [id number] Dec, [facility] [address] [id number] [address] [place] [address], [place] [id number] Dec, [facility] [address] [id number] [address] [place] [address], [place] [id number] Dec, [facility] [address] [id number] [address] [place] [address], [place] [id number] Nov, [facility] [address] [id number] [address] [place] [address], [place] [id number] Nov, [facility] [address] [id number] [address] [place] [address], [place] [id number] Nov, [facility] [address] [id number] [address] [place] [address], [place] [phone] Oct, [facility] [address] [id number] [address] [place] [address], [place] [id number] Oct, [facility] [address] [id number] [address] [place] [address], [place] [phone] Oct, [facility] [address] [id number] [address] [place] [address], [place] [id number] September, [facility] [address] [id number] [address] [place] [address], [place] [id number] September, [facility] [address] [id number] [address] [place] [address], [place] [id number] September, [facility] [address] [id number] [address] [place] [address], [place] [id number] Aug, [facility] [address] [id number] [address] [place] [address], [place] [id number] Aug, [facility] [address] [id number] [address] [place] [address], [place] [id number] Aug, [facility] [address] [id number] [address] [place] [address], [place] [id number] Aug, [facility] [address] [id number] [address] [place] [address], [place] [id number] Jul, [facility] [address] [id number] [address] [place] [address], [place] [phone] Jun, [facility] [address] [id number] [address] [place] [id number] 14 Jun, 2011 [facility] [address] [id number] [address] [place] [address], [place] [id number] 13 Jun, 2011 [facility] [address] [id number] [address] [place] [address], [place] [id number] 07 Jun, 2011 [facility] [address] [id number] [address] [place] [address], [place] [id number] 03 Jun, 2011 [facility] [address] [id number] [address] [place] [address], [place] [id number] 13 May, 2011 [facility] [address] [id number] [address] [place] [address], [place] [id number] May, [facility] [address] [id number] [address] [place] [address], [place] [id number] May, [facility] [address] [id number] [address] [place] [address], [place] [id number] May, [facility] [address] [id number] [address] [place] [address], [place] [id number] Apr, [facility] [address] [id number] [address] [place] [address], [place] [id number] Apr, [facility] [address] [id number] [address] [place] [address], [place] [id number] 05 Apr, 2011 [facility] [address] [id number] [address] [place] [address], [place] [id number] Mar, [facility] [address] [id number] [address] [place] [id number] Mar, [facility] [address] [id number] [address] [place] [id number] 09 Mar, 2011 [facility] [address] [id number] [address] [place] [id number] 13 Feb, 2011 [facility] [address] [id number] [address] [place] [id number] 13 Feb, 2011 [facility] [address] [id number] [address] [place] [id number] Feb, [facility] [address] [id number] [address] [place] [id number] Nov, [facility] [address] [id number] [address] [place] [phone] September, [facility] [address] [id number] [address] [place] [id number] Aug, [facility] [address] [id number] [address] [place] [id number] Jul, [facility] [address] [id number] [address] [place] [id number] May, [facility] [address] [id number] [address] [place] [phone] Apr, [facility] [address] [id number] [address] [place] [id number] Apr, [facility] [address] [id number] [address] [place] [id number] Apr, [facility] [address] [id number] [address] [place] [phone] Apr, [facility] [address] [id number] [address] [place] [id number] Apr, IMMUNIZATIONS No Known Immunizations SOCIAL HISTORY [...]
--- OUTSIDE RECORDS SUMMARY | 2019-07-17 10:42 | XMS REPORT ---
Author Author Sujey Renteria Doctor Organization [facility] Address Unknown Phone Unavailable Care Team Providers Care Director Of Officiating Name Role Phone Migration, Doctor Unavailable Unavailable PROBLEMS Type Condition ICD9-CM Code [id number] Code Onset Dates Condition S tatus SNOMED Code Problem Other chronic pain G89.29 Active 8 1670336 Problem Chronic post-traumatic stress disorder (PTSD) F43. 12 Active 674510233 Problem Bipolar 1 disorder, depressed, moderate F31.32 Active 86923299 Problem Attention deficit hyperactiv ity disorder (ADHD), predominantly inattentive type F90.0 Active 48531351 Problem Bipolar affective disorder, remission status unspecified F31.9 Active 22069323 Problem Acute non-recurrent maxillary sinusitis J01.00 Active 02343658 Problem Bipolar I disorder with depression F31.9 Active 19454388 Problem Essential tremor G25.0 Active 609 207413 Problem Chronic obstructive pulmonary disease, unspecified J44.9 Active 46408617 Problem Schizoaffective disorder, bipolar type F25.0 Active 59170296 Problem Panic disorder with agoraphobia F40.01 Active 71834211 Problem Lumbago with sciatica, right side M54.41 Active 153789472 Problem Lumbago with sciatica, left side M54.42 Active 851959853 Problem Akathisia G25.71 Active 041253829 Problem Panlobular emphysema J43.1 Active 6975168 Problem Fibrocystic disease of left breast N60.12 Active 35175420 Problem Hypertension I10 Active 5710282 3 Problem Migraine without aura and without status migrain osus, not intractable G43.009 Active 825940159 Problem Diabetes E11.9 Active 67324804 Problem Arthritis M19.90 Active 6608744 Problem Anxiety disorder, unspecified F41.9 Active 955825291 Problem Fibrocystic disease of right breast N60.11 Active 18727423 Problem Back pain M54.9 Active 419093048 Problem Irritable bowel syndrome with both constipation and diarrh ea K58.2 Active 63600591 Problem Fibromyalgia M79.7 Active 1846129 7 Problem Irritable bowel syndrome with constipation K58.1 Active 626892481 Problem Other bipolar disorder F31.89 Active 12028603 Problem Slow transit constipation K59.01 Acti ve 70073512 Problem Daytime somnolence R40.0 Active 1 27797390123 Problem Abnormal mammogram of right breast R92.8 Active 614384958 Problem Diffuse cystic mastopathy of left breast N60.12 Active 71274091 Problem Mild persistent asthma without complication J45.30 Active 248483906 Problem Diffuse cystic mastopathy of right breast N60.11 Active 81942673 Problem Bipolar 1 disorder, depressed, partial remission F 31.75 Active 18030339 Problem Moderate persistent asthma without complication J4 5.40 Active 611291348 Problem Tinnitus of right ear H93.11 Active 66830601 Problem Tinnitus of both ears H93.13 Active 6696210745090 Problem GERD (gastroesophageal reflux disease) K21.9 Active 573352508 Problem Contracture, left hand M24.542 Active 169346696860360 Problem Mood disorder F39 Active 089339 05 ALLERGIES No Information ENCOUNTERS Encounter Location Date Diagnosis [place] [id number] [facility] [id number] [address] [place] [id number] Oct, [place] [address] [facility] [id number] [address] [place] [address] September, [place] [address] [facility] [id number] [address] [place] [address] September, Diabetes E11.9 and Other chr onic pain G89.29 [facility] [address] [facility] [id number] [address] [place] [address] September, Diabetes E11.9 and Other chr onic pain G89.29 [facility] [address] [facility] [id number] [address] [place] [address] September, [facility] [address] [facility] [id number] [address] [place] [address] Aug, [place] [address] [facility] [id number] [address] [place] [address] Aug, Hypertension I10 [place] [address] [facility] [id number] [address] [place] [address] Aug, [place] [address] [facility] [id number] [address] [place] [address] Aug, [place] [address] [facility] [id number] [address] [place] [address] Aug, Diabetes E11.9 and Edema of both legs R60.0 [place] [address] [facility] [id number] [address] [place] [address] Aug, Panic disorder with agorapho syd F40.01 ; Other chronic pain G89.29 and Daytime somnolence R40.0 [place] [address] [facility] [id number] [address] [place] [address] Jul, [place] [address] [facility] [id number] [address] [place] [address] Jul, [place] [address] [facility] [id number] [address] [place] [address] Jul, Diffuse cystic mastopathy of left breast N60.12 and Diffuse cystic mastopathy of right breast N60.11 [place] [address] [place] [id number] [address] [place] [address] Jul, Fibrocystic disease of right breast N60.11 [place] [address] [facility] [id number] [address] [place] [address] Jul, Fibrocystic disease of right breast N60.11 and Fibrocystic disease of left breast N60.12 [place] [address] [facility] [id number] [address] [place] [address] 15 Jul, 2018 Encounter for Medicare annua l wellness exam Z00.00 ; Schizoaffective disorder, bipolar type F25.0 ; Chronic obstructive pulmonary disease, unspecified J44.9 ; Fibromyalgia M79.7 and Acute non-recurrent maxillary sinusitis J01.00 [place] [address] [facility] [id number] [address] [place] [phone] 14 Jul, 2018 Daytime somnolence R40.0 [facility] [address] [id number] [address] [place] [address] 14 Jul, 2018 [facility] [address] [id number] [address] [place] [id number] 13 Jul, 2018 [facility] [address] [id number] [address] [place] [address] Jul, Panic disorder with agorapho syd F40.01 ; Anxiety disorder, unspecified F41.9 ; Other chronic pain G89.29 and Daytime somnolence R40.0 [facility] [address] [id number] [address] [place] [address] Jul, [facility] [address] [id number] [address] [place] [phone] Jun, [facility] [address] [facility] [id number] [address] [place] [address] 08 Jun, 2018 Hip pain, left M25.552 ; Leg pain, left M79.605 ; Lumbar pain M54.5 and Mood disorder F39 [facility] [address] [facility] [id number] [address] [place] [address] 08 Jun, 2018 Diabetes E11.9 ; Other chron ic pain G89.29 and Anxiety disorder, unspecified F41.9 [facility] [address] [facility] [id number] [address] [place] [address] 07 Jun, 2018 Hip pain, left M25.552 ; Leg pain, left M79.605 ; Lumbar pain M54.5 and Mood disorder F39 [facility] [address] [id number] [address] [place] [phone] May, Diabetes E11.9 [facility] [address] [facility] [id number] [address] [place] [address] May, [facility] [address] [facility] [id number] [address] [place] [phone] May, Other chronic pain G89.29 an d Anxiety disorder, unspecified F41.9 [facility] [address] [id number] [address] [place] [address] May, [facility] [address] [id number] [address] [place] [address] May, [facility] [address] [id number] [address] [place] [address] May, Tinnitus of right ear H93.11 [facility] [address] [id number] [address] [place] [address] May, Diabetes E11.9 ; Tinnitus of both ears H93.13 ; Contracture, left hand M24.542 and Family history of rheumatic joint disease Z82.69 [facility] [address] [id number] [address] [place] [address] Apr, [facility] [address] [id number] [address] [place] [address] Apr, [facility] [address] [id number] [address] [place] [address] Apr, Tinnitus of right ear H93.11 and Hypertension I10 [facility] [address] [id number] [address] [place] [address] Apr, Other chronic pain G89.29 ; Daytime somnolence R40.0 and Anxiety disorder, unspecified F41.9 [facility] [address] [id number] [address] [place] [phone] Apr, [facility] [address] [id number] [address] [place] [phone] Apr, [facility] [address] [id number] [address] [place] [address] Mar, Tinnitus of right ear H93.11 [facility] [address] [id number] [address] [place] [address] Mar, [facility] [address] [id number] [address] [place] [address] Mar, Anxiety disorder, unspecifie d F41.9 ; Other chronic pain G89.29 and Daytime somnolence R40.0 [facility] [address] [id number] [address] [place] [address] Mar, Irritable bowel syndrome wit h both constipation and diarrhea K58.2 [facility] [address] [id number] [address] [place] [phone] Mar, [facility] [address] [id number] [address] [place] [phone] Mar, Hypertension I10 [facility] [address] [facility] [id number] [address] [place] [phone] Mar, [facility] [address] [facility] [id number] [address] [place] [phone] Mar, [facility] [address] [facility] [id number] [address] [place] [address] Mar, [facility] [address] [facility] [id number] [address] [place] [phone] Mar, Diabetes E11.9 [facility] [address] [facility] [id number] [address] [place] [phone] Mar, [facility] [address] [facility] [id number] [address] [place] [id number] Feb, Daytime somnolence R40.0 and Anxiety disorder, unspecified F41.9 [facility] [address] [facility] [id number] [address] [place] [address] Feb, [facility] [address] [facility] [id number] [address] [place] [address] Feb, [facility] [address] [facility] [id number] [address] [place] [address] Feb, Tremors of nervous system R2 5.1 and Acute swimmer''s ear of right side H60.331 [facility] [address] [facility] [id number] [address] [place] [address] Feb, Cerebrovascular accident (CV A) due to occlusion of right cerebellar artery I63.541 and Hypertension I10 [facility] [address] [facility] [id number] [address] [place] [address] Feb, [facility] [address] [facility] [id number] [address] [place] [address] Feb, Cerebrovascular accident (CV A) due to occlusion of right cerebellar artery I63.541 [place] [address] [facility] [id number] [place] [address] [id number] Feb, Hyponatremia E87.1 [facility] [address] [facility] [id number] [address] [place] [address] Feb, [facility] [address] [facility] [id number] [address] [place] [phone] Feb, Daytime somnolence R40.0 [facility] [address] [facility] [id number] [address] [place] [address] Feb, [facility] [address] [facility] [id number] [address] [place] [address] Jan, [facility] [address] [facility] [id number] [address] [place] [address] Jan, [facility] [address] [facility] [id number] [address] [place] [phone] Jan, Chronic obstructive pulmonar y disease, unspecified J44.9 and Anxiety disorder, unspecified F41.9 [facility] [address] [facility] [id number] [address] [place] [address] Jan, Hypertension I10 ; Fibromyal medhat M79.7 and Lumbago with sciatica, left side M54.42 [facility] [address] [facility] [id number] [address] [place] [phone] Jan, [facility] [address] [place] [id number] [address] [place] [id number] 20 Jan, 2018 Cerebrovascular accident (CV A) due to occlusion of right cerebellar artery I63.541 [facility] [address] [facility] [id number] [address] [place] [phone] 19 Jan, 2018 [facility] [address] [facility] [id number] [address] [place] [address] 13 Jan, 2018 Arthritis M19.90 [facility] [address] [place] [id number] [address] [place] [phone] 07 Jan, 2018 [place] [address] [place] [id number] [address] [place] [phone] 04 Jan, 2018 Abnormal mammogram of right breast R92.8 [place] [address] [place] [id number] [address] [place] [phone] 30 Dec, 2017 Daytime somnolence R40.0 and Right otitis media with effusion H65.91 [place] [address] [place] [id number] [address] [place] [phone] Dec, [place] [address] [place] [id number] [address] [place] [address] Dec, Cerebrovascular accident (CV A) due to occlusion of right cerebellar artery I63.541 [place] [address] [place] [id number] [address] [place] [address] Dec, [facility] [address] [place] [id number] [address] [place] [address] Dec, [place] [address] [place] [id number] [address] [place] [address] Nov, Bipolar 1 disorder, depresse d, partial remission F31.75 and Panic disorder with agoraphobia F40.01 [facility] [address] [place] [id number] [address] [place] [address] Nov, Panlobular emphysema J43.1 [place] [address] [place] [id number] [address] [place] [address] Nov, Cerebrovascular accident (CV A) due to occlusion of right cerebellar artery I63.541 and Acute non-recurrent maxillary sinusitis J01.00 [facility] [address] [id number] [address] [place] [address] Nov, Panlobular emphysema J43.1 [facility] [address] [id number] [address] [place] [address] Nov, [facility] [address] [id number] [address] [place] [address] Nov, [facility] [address] [id number] [address] [place] [address] Nov, [facility] [address] [id number] [address] [place] [phone] Nov, [facility] [address] [id number] [address] [place] [phone] Nov, [facility] [address] [id number] [address] [place] [address] Nov, [facility] [address] [id number] [address] [place] [phone] Nov, [facility] [address] [id number] [address] [place] [id number] Nov, Mild persistent asthma witho ut complication J45.30 and Irritable bowel syndrome with both constipation and diarrhea K58.2 [facility] [address] [id number] [address] [place] [phone] Nov, [facility] [address] [id number] [address] [place] [phone] Oct, [facility] [address] [id number] [address] [place] [address] Oct, [facility] [address] [id number] [address] [place] [address] Oct, Type 2 diabetes mellitus wit h diabetic neuropathy, unspecified whether fdc insulin use E11.40 ; Diabetes E11.9 ; Slow transit constipation K59.01 ; Edema of both legs R60.0 and Dysfunction of right eustachian tube H69.81 [facility] [address] [id number] [address] [place] [address] Oct, Frequent headaches R51 [facility] [address] [id number] [address] [place] [phone] Oct, [facility] [address] [id number] [address] [place] [address] Oct, [facility] [address] [id number] [address] [place] [address] Oct, [facility] [address] [id number] [address] [place] [phone] Oct, [facility] [address] [facility] [id number] [address] [place] [phone] Oct, [facility] [address] [id number] [address] [place] [address] Oct, [facility] [address] [facility] [id number] [address] [place] [address] Oct, [facility] [address] [facility] [id number] [address] [place] [phone] Oct, [facility] [address] [facility] [id number] [address] [place] [address] September, Frequent headaches R51 [facility] [address] [facility] [id number] [address] [place] [address] September, Bilateral otitis media with effusion H65.93 ; Dizziness R42 and Essential tremor G25.0 [facility] [address] [facility] [id number] [address] [place] [address] September, Chronic obstructive pulmonar y disease, unspecified COPD type J44.9 [facility] [address] [facility] [id number] [address] [place] [address] September, Chronic obstructive pulmonar y disease, unspecified COPD type J44.9 [facility] [address] [facility] [id number] [address] [place] [address] September, Migraine without aura and wi thout status migrainosus, not intractable G43.009 [facility] [address] [place] [id number] [address] [place] [address] September, [facility] [address] [facility] [id number] [address] [place] [address] September, [facility] [address] [place] [id number] [address] [place] [address] September, [facility] [address] [place] [id number] [place] [address] September, Frequent headaches R51 [facility] [address] [place] [id number] [address] [place] [address] Aug, [facility] [address] [place] [id number] [address] [place] [address] Aug, Breast mass, right N63.10 [facility] [address] [place] [id number] [address] [place] [address] Aug, Breast lump N63.0 [facility] [address] [place] [id number] [address] [place] [address] Aug, [facility] [address] [place] [id number] [address] [place] [address] Aug, Bipolar affective disorder, remission status unspecified F31.9 and Diabetes E11.9 [facility] [address] [place] [id number] [address] [place] [address] Aug, Diabetes E11.9 ; Schizoaffec tive disorder, bipolar type F25.0 ; Pharyngitis due to other organism J02.8 ; Panlobular emphysema J43.1 and Irritable bowel syndrome with both constipation and diarrhea K58.2 [facility] [address] [place] [id number] [address] [place] [address] Aug, Abnormal mammogram R92.8 [facility] [address] [id number] [address] [place] [phone] Aug, [facility] [address] [id number] [address] [place] [address] Aug, Bipolar 1 disorder, depresse d, moderate F31.32 ; Panic disorder with agoraphobia F40.01 and Chronic post-traumatic stress disorder (PTSD) F43.12 [facility] [address] [id number] [address] [place] [address] Aug, [facility] [address] [id number] [address] [place] [phone] Aug, [facility] [address] [facility] [id number] [address] [place] [phone] Aug, [facility] [address] [facility] [id number] [address] [place] [id number] Jul, [facility] [address] [id number] [address] [place] [id number] Jul, Mild persistent asthma witho ut complication J45.30 [facility] [address] [id number] [address] [place] [id number] Jul, Mild persistent asthma witho ut complication J45.30 [facility] [address] [facility] [id number] [address] [place] [id number] Jul, Bipolar affective disorder, remission status unspecified F31.9 ; Diabetes E11.9 and Irritable bowel syndrome with constipation K58.1 [facility] [address] [id number] [address] [place] [id number] Jul, [facility] [address] [facility] [id number] [address] [place] [phone] Jul, [facility] [address] [facility] [id number] [address] [place] [phone] Jul, Frequent headaches R51 [facility] [address] [facility] [id number] [address] [place] [id number] Jul, [facility] [address] [facility] [id number] [address] [place] [phone] Jul, [facility] [address] [facility] [id number] [address] [place] [id number] Jul, [facility] [address] [facility] [id number] [place] [id number] Jul, Frequent headaches R51 ; Fib rocystic disease of left breast N60.12 ; Fibrocystic disease of right breast N60.11 and Diabetes E11.9 [place] [address] [facility] [id number] [address] [place] [id number] Jul, [place] [address] [facility] [id number] [place] [id number] Jul, [place] [address] [phone] Jun, Exudative tonsillitis J03.90 [place] [address] [phone] Jun, [place] [address] [place] [id number] [place] [phone] Jun, [place] [address] [id number] 15 Jun, 2017 Mild persistent asthma witho ut complication J45.30 ; Chronic obstructive pulmonary disease, unspecified COPD type J44.9 and Exudative tonsillitis J03.90 [place] [address] [address] [place] [id number] [address] [place] [id number] 13 Jun, 2017 Encounter for immunization Z 23 [place] [place] [address] [address] [facility] [id number] [address] [place] [phone] 12 Jun, 2017 [place] [address] [address] Jun, [facility] [address] [facility] [id number] [address] [place] [address] Jun, [facility] [address] [facility] [id number] [address] [place] [phone] 06 Jun, 2017 Tonsillitis J03.90 [facility] [address] [place] [id number] [place] [address] Jun, [facility] [address] [address] Jun, Acute non-recurrent maxillar y sinusitis J01.00 [facility] [address] [address] 02 Jun, 2017 [facility] [address] [address] May, [facility] [address] [address] May, [facility] [address] [address] May, GERD (gastroesophageal reflu x disease) K21.9 [facility] [address] [address] May, Migraine without aura and wi thout status migrainosus, not intractable G43.009 [facility] [address] [place] [id number] [address] [place] [phone] May, [facility] [address] [address] May, [facility] [address] [address] May, Panlobular emphysema J43.1 a nd Acute non-recurrent maxillary sinusitis J01.00 [facility] [address] [address] May, Bipolar 1 disorder, depresse d, moderate F31.32 ; Panic disorder with agoraphobia F40.01 and Akathisia G25.71 [place] [address] [address] [place] [id number] [address] [place] [address] Apr, [place] [address] [place] [id number] [address] [place] [address] Apr, [place] [address] [address] Apr, Acute non-recurrent maxillar y sinusitis J01.00 [place] [address] [address] Apr, Panlobular emphysema J43.1 [place] [address] [place] [id number] [place] [address] Apr, [facility] [place] [address] [address] Apr, Exudative tonsillitis J03.90 and Sore throat J02.9 [place] [address] [address] 17 Mar, 2017 [place] [address] [address] [place] [id number] [place] [address] Mar, Acute non-recurrent maxillar y sinusitis J01.00 [place] [address] [address] [place] [id number] [address] [place] [address] Mar, [place] [address] [address] [place] [id number] [address] [place] [address] Mar, Panlobular emphysema J43.1 a nd Diabetes E11.9 [place] [address] [address] [place] [id number] [address] [place] [address] 06 Mar, 2017 [facility] [address] [place] [id number] [address] [place] [address] Feb, Wheezing R06.2 and Acute rec urrent pansinusitis J01.41 [facility] [address] [id number] [address] [place] [address] Feb, [facility] [address] [id number] [address] [place] [id number] 16 Feb, 2017 Acute non-recurrent maxillar y sinusitis J01.00 [facility] [address] [id number] [address] [place] [phone] 16 Feb, 2017 Chronic obstructive pulmonar y disease, unspecified J44.9 [facility] [address] [id number] [address] [place] [address] Feb, Hypoxemia R09.02 and Chronic obstructive pulmonary disease, unspecified J44.9 [facility] [address] [facility] [id number] [address] [place] [id number] 28 Jan, 2017 Bipolar 1 disorder, depresse d, moderate F31.32 ; Panic disorder with agoraphobia F40.01 ; Chronic post-traumatic stress disorder (PTSD) F43.12 ; Diabetes E11.9 and Moderate persistent asthma without complication J45.40 [place] [address] [id number] [address] [place] [address] 22 Jan, 2017 [facility] [address] [id number] [address] [place] [phone] 19 Jan, 2017 Acute non-recurrent maxillar y sinusitis J01.00 [facility] [address] [facility] [id number] [address] [place] [phone] 18 Jan, 2017 [facility] [address] [id number] [address] [place] [id number] 18 Jan, 2017 [facility] [address] [facility] [id number] [address] [place] [id number] 12 Jan, 2017 [facility] J[facility].40 and Hypoxemia R09.02 [facility] [address] [facility] [id number] [address] [place] [id number] 11 Jan, 2017 Moderate [facility] J[facility].40 and Hypoxemia R09.02 [facility] [address] [id number] [address] [place] [address] Jan, [facility] [address] [id number] [address] [place] [address] Dec, Acute non-recurrent maxillar y sinusitis J01.00 [facility] [address] [id number] [address] [place] [id number] Dec, Chronic obstructive pulmonar y disease, unspecified J44.9 [facility] [address] [id number] [address] [place] [address] Dec, [facility] [address] [id number] [address] [place] [address] Dec, Mild persistent asthma witho ut complication J45.30 and Other chronic pain G89.29 [facility] [address] [facility] [id number] [address] [place] [address] Nov, [facility] [address] [id number] [address] [place] [address] Nov, Acute non-recurrent maxillar y sinusitis J01.00 [facility] [address] [id number] [address] [place] [phone] Nov, [facility] [address] [facility] [id number] [address] [place] [address] Nov, [facility] [address] [facility] [id number] [address] [place] [address] Oct, [facility] [address] [facility] [id number] [address] [place] [address] Oct, Bipolar 1 disorder, depresse d, partial remission F31.75 ; Panic disorder with agoraphobia F40.01 and Chronic post-traumatic stress disorder (PTSD) F43.12 [facility] [address] [facility] [id number] [address] [place] [address] Oct, Acute non-recurrent maxillar y sinusitis J01.00 [facility] [address] [id number] [address] [place] [phone] Oct, [facility] [address] [id number] [address] [place] [address] Oct, Diabetes E11.9 [facility] [address] [id number] [address] [place] [address] September, Diabetes E11.9 [facility] [address] [id number] [address] [place] [address] September, Diabetes E11.9 and Sinus tac hycardia R00.0 [facility] [address] [id number] [address] [place] [phone] September, [facility] [address] [id number] [address] [place] [address] September, [facility] [address] [facility] [id number] [address] [place] [address] Aug, Diabetes E11.9 and Lumbago w ith sciatica, right side M54.41 [facility] [address] [id number] [address] [place] [phone] Aug, [facility] [address] [facility] [id number] [address] [place] [phone] Jul, Bipolar 1 disorder, depresse d, moderate F31.32 ; Panic disorder with agoraphobia F40.01 and Chronic post-traumatic stress disorder (PTSD) F43.12 [facility] [address] [id number] [address] [place] [address] Jul, Sore throat J02.9 [facility] [address] [id number] [address] [place] [phone] Jul, [facility] [address] [facility] [id number] [address] [place] [phone] Jul, [facility] [address] [facility] [id number] [address] [place] [address] Jul, [facility] [address] [facility] [id number] [address] [place] [address] Jul, [facility] [address] [facility] [id number] [address] [place] [address] Jul, Sore throat J02.9 and Pharyn gitis, unspecified etiology J02.9 [facility] [address] [facility] [id number] [address] [place] [address] Jun, [facility] [address] [id number] [address] [place] [address] Jun, Diabetes E11.9 [facility] [address] [facility] [id number] [address] [place] [phone] Jun, [facility] [address] [facility] [id number] [address] [place] [phone] Jun, [facility] [address] [facility] [id number] [address] [place] [phone] Jun, [facility] [address] [facility] [id number] [address] [place] [address] Jun, [facility] [address] [facility] [id number] [address] [place] [phone] Jun, [facility] [address] [facility] [id number] [address] [place] [phone] Jun, [facility] [address] [facility] [id number] [address] [place] [address] Jun, [facility] [address] [facility] [id number] [address] [place] [phone] Jun, [facility] [address] [facility] [id number] [address] [place] [address] May, Diabetes E11.9 ; Other chron ic pain G89.29 ; Acute recurrent maxillary sinusitis J01.01 ; Bipolar I disorder with depression F31.9 and Anxiety disorder, unspecified F41.9 [place] [address] [facility] [id number] [address] [place] [address] May, [place] [address] [facility] [id number] [address] [place] [address] May, Diabetes E11.9 ; Bipolar I d isorder with depression F31.9 ; Anxiety disorder, unspecified F41.9 ; Other chronic pain G89.29 and Acute recurrent maxillary sinusitis J01.01 [place] [address] [facility] [id number] [address] [place] [address] May, [place] [address] [facility] [id number] [address] [place] [address] May, Attention deficit hyperactiv ity disorder (ADHD), predominantly inattentive type F90.0 [place] [address] [place] [id number] [address] [place] [address] May, [place] [address] [place] [id number] [address] [place] [address] Apr, Attention deficit hyperactiv ity disorder (ADHD), predominantly inattentive type F90.0 and Non-seasonal allergic rhinitis due to other allergic trigger J30.89 [place] [address] [facility] [id number] [address] [place] [address] Apr, Bipolar 1 disorder, depresse d, moderate F31.32 ; Panic disorder with agoraphobia F40.01 and Chronic post-traumatic stress disorder (PTSD) F43.12 [place] [address] [facility] [id number] [address] [place] [address] Apr, Dental examination Z01.20 [place] [address] [facility] [id number] [address] [place] [address] Mar, [place] [address] [facility] [id number] [address] [place] [address] Mar, [place] [address] [facility] [id number] [address] [place] [address] Mar, Bipolar I disorder with depr ession F31.9 and Anxiety disorder, unspecified F41.9 [facility] [address] [id number] [address] [place] [phone] 08 Mar, 2016 Panic disorder with agorapho syd F40.01 ; Bipolar 1 disorder, depressed, moderate F31.32 and Chronic post-traumatic stress disorder (PTSD) F43.12 [place] [address] [facility] [id number] [address] [place] [address] Mar, [facility] [address] [id number] [address] [place] [address] Mar, Dental caries K02.9 [place] [address] [facility] [id number] [place] [phone] Feb, Lumbago with sciatica, left side M54.42 ; Lumbago with sciatica, right side M54.41 and Other chronic pain G89.29 [place] [address] [facility] [id number] [address] [place] [address] Feb, [place] [address] [facility] [id number] [address] [place] [address] Feb, [place] [address] [place] [id number] [place] [address] Feb, Bipolar I disorder with depr ession F31.9 ; PTSD (post-traumatic stress disorder) F43.10 and Mood disorder F39 [place] [address] [facility] [id number] [address] [place] [phone] Feb, [place] [address] [facility] [id number] [address] [place] [phone] 11 Feb, 2016 Dental examination Z01.20 [place] [address] [facility] [id number] [address] [place] [address] 07 Feb, 2016 [facility] [address] [facility] [id number] [address] [place] [address] 03 Feb, 2016 Acute bronchitis, unspecifie d organism J20.9 [place] [address] [place] [id number] [address] [place] [address] Jan, Mood disorder F39 ; Migraine without aura and without status migrainosus, not intractable G43.009 ; Irritable bowel syndrome, unspecified type K58.9 ; Diabetes E11.9 and Encounter for immunization Z23 [facility] [address] [place] [id number] [address] [place] [phone] Jan, [facility] [address] [facility] [id number] [address] [place] [address] Jan, [facility] [address] [place] [id number] [address] [place] [address] Jan, [place] [address] [place] [id number] [place] [address] Jan, [place] [address] [place] [id number] [address] [place] [address] Jan, [place] [address] [place] [id number] [address] [place] [address] Dec, Bipolar I disorder with depr ession F31.9 ; PTSD (post-traumatic stress disorder) F43.10 and Panic disorder with agoraphobia F40.01 [facility] [address] [place] [id number] [address] [place] [address] Dec, Chronic obstructive pulmonar y disease, unspecified COPD type J44.9 ; Tremor R25.1 and Anxiety F41.9 [facility] [address] [place] [id number] [address] [place] [address] Dec, [place] [address] [place] [id number] [address] [place] [address] Nov, Tremors of nervous system R2 5.1 and Cramping of feet R25.2 [place] [address] [place] [id number] [address] [place] [phone] Nov, [facility] [address] [place] [id number] [address] [place] [address] Nov, [facility] [address] [facility] [id number] [address] [place] [address] Oct, Chronic obstructive pulmonar y disease, unspecified J44.9 [facility] [address] [id number] [address] [place] [address] Oct, [facility] [address] [facility] [id number] [address] [place] [phone] Oct, Tremor R25.1 [facility] [address] [facility] [id number] [address] [place] [address] Oct, Bipolar I disorder with depr ession F31.9 ; Diabetes E11.9 ; PTSD (post-traumatic stress disorder) F43.10 and Panic disorder with agoraphobia F40.01 [place] [address] [place] [id number] [address] [place] [address] Oct, Mood disorder F39 [place] [address] [facility] [id number] [address] [place] [address] September, [facility] [address] [facility] [id number] [address] [place] [address] September, Diabetes E11.9 ; Bipolar I d isorder with depression F31.9 ; PTSD (post-traumatic stress disorder) F43.10 and Panic disorder with agoraphobia F40.01 [facility] [address] [facility] [id number] [address] [place] [address] September, Mood disorder F39 ; Schizoaf fective disorder, unspecified type F25.9 ; Arthritis M19.90 ; Tremor R25.1 ; Acute non-recurrent frontal sinusitis J01.10 and Blood in stool K92.1 [facility] [address] [facility] [id number] [address] [place] [phone] September, [facility] [address] [facility] [id number] [address] [place] [phone] September, Chronic obstructive pulmonar y disease, unspecified J44.9 [facility] [address] [id number] [address] [place] [phone] September, Diabetes E11.9 [facility] [address] [id number] [address] [place] [address] Aug, Other bipolar disorder F31.8 9 and Anxiety disorder, unspecified F41.9 [facility] [address] [id number] [address] [place] [phone] Aug, [facility] [address] [id number] [address] [place] [phone] Aug, Diabetes E11.9 [facility] [address] [id number] [address] [place] [address] 18 Aug, 2015 [facility] [address] [facility] [id number] [address] [place] [phone] 14 Aug, 2015 Diabetes E11.9 ; Fatigue R53 .83 and Dizziness R42 [facility] [address] [id number] [address] [place] [phone] Aug, Other bipolar disorder F31.8 9 [facility] [address] [id number] [address] [place] [phone] Aug, Generalized anxiety disorder F41.1 [facility] [address] [facility] [id number] [address] [place] [address] Aug, Other bipolar disorder F31.8 9 and Anxiety disorder, unspecified F41.9 [facility] [address] [id number] [address] [place] [phone] Aug, [facility] [address] [id number] [address] [place] [phone] Jul, [facility] [address] [facility] [id number] [address] [place] [phone] Jul, [facility] [address] [facility] [id number] [address] [place] [id number] Jul, Bronchitis J40 [facility] [address] [id number] [address] [place] [phone] Jul, Anxiety disorder F41.9 [facility] [address] [id number] [address] [place] [phone] Jul, Other bipolar disorder F31.8 9 and Anxiety disorder, unspecified F41.9 [facility] [address] [id number] [address] [place] [phone] Jul, Other bipolar disorder F31.8 9 and Fibromyalgia M79.7 [facility] [address] [id number] [address] [place] [id number] Jul, [facility] [address] [facility] [id number] [address] [place] [phone] Jul, [facility] [address] [facility] [id number] [address] [place] [phone] Jul, [facility] [address] [facility] [id number] [address] [place] [phone] Jul, Other bipolar disorder F31.8 9 and Anxiety disorder, unspecified F41.9 [facility] [address] [facility] [id number] [address] [place] [phone] Jun, GERD (gastroesophageal reflu x disease) K21.9 [facility] [address] [facility] [id number] [address] [place] [phone] Jun, [facility] [address] [facility] [id number] [address] [place] [phone] May, [facility] [address] [facility] [id number] [address] [place] [id number] May, Diabetes E11.9 ; Back pain M 54.9 ; GERD (gastroesophageal reflux disease) K21.9 ; Hypertension I10 and Peripheral neuropathy G62.9 [facility] [address] [facility] [id number] [address] [place] [id number] Mar, [facility] [address] [facility] [id number] [address] [place] [phone] Mar, [facility] [address] [facility] [id number] [address] [place] [id number] Mar, Acute sinusitis J01.90 and O titis media, left H66.92 [facility] [address] [id number] [address] [place] [id number] Feb, [facility] [address] [id number] [address] [place] [phone] Feb, [facility] [address] [id number] [address] [place] [id number] Feb, [facility] [address] [facility] [id number] [address] [place] [id number] Feb, [facility] [address] [facility] [id number] [address] [place] [phone] Jan, [facility] [address] [facility] [id number] [address] [place] [phone] Jan, Diabetes 250.00 and Back higinio n 724.5 [facility] [address] [id number] [address] [place] [phone] Jan, [facility] [address] [facility] [id number] [address] [place] [id number] Dec, Diabetes 250.00 ; Benign ess ential hypertension 401.1 and Allergic rhinitis 477.9 [facility] [address] [facility] [id number] [address] [place] [phone] Dec, [facility] [address] [facility] [id number] [address] [place] [id number] Dec, [facility] [address] [facility] [id number] [address] [place] [phone] Dec, Psychosis 298.9 [facility] [address] [facility] [id number] [address] [place] [phone] Dec, Medication side effect 995.2 0 and Generalized anxiety disorder 300.02 [facility] [address] [id number] [address] [place] [id number] Dec, Acquired cognitive dysfuncti on 294.9 [facility] [address] [id number] [address] [place] [phone] Dec, [facility] [address] [facility] [id number] [address] [place] [phone] Dec, Unspecified myalgia and myos itis 729.1 and Generalized anxiety disorder 300.02 [facility] [facility] [address] [id number] [address] [place] [phone] Nov, [facility] [address] [facility] [id number] [address] [place] [phone] Nov, [facility] [address] [facility] [id number] [address] [place] [phone] Nov, [facility] [address] [facility] [id number] [address] [place] [phone] Nov, Upper respiratory infection 465.9 and Chronic airway obstruction, not elsewhere classified 496 [facility] [address] [id number] [address] [place] [id number] Nov, Hyponatremia 276.1 [facility] [address] [facility] [id number] [address] [place] [phone] Oct, [facility] [address] [facility] [id number] [address] [place] [phone] Oct, [facility] [address] [facility] [id number] [address] [place] [phone] Oct, [facility] [address] [facility] [id number] [address] [place] [phone] Oct, [facility] [address] [facility] [id number] [address] [place] [phone] Oct, Hyponatremia 276.1 [facility] [address] [facility] [id number] [address] [place] [phone] Oct, [facility] [address] [id number] [address] [place] [id number] Oct, [facility] [address] [id number] [address] [place] [id number] Oct, Generalized anxiety disorder 300.02 [facility] [address] [id number] [address] [place] [id number] Oct, Generalized anxiety disorder 300.02 and Diabetes 250.00 [facility] [address] [id number] [address] [place] [phone] Aug, [facility] [address] [id number] [address] [place] [phone] Aug, [facility] [address] [id number] [address] [place] [id number] Jul, [facility] [address] [id number] [address] [place] [phone] Jul, [facility] [address] [id number] [address] [place] [phone] Jun, [facility] [address] [id number] [address] [place] [phone] Jun, [facility] [address] [id number] [address] [place] [id number] Jun, [facility] [address] [id number] [address] [place] [phone] Jun, [facility] [address] [id number] [address] [place] [phone] Jun, [facility] [address] [id number] [address] [place] [phone] May, [facility] [address] [id number] [address] [place] [phone] May, [facility] [address] [id number] [address] [place] [phone] Apr, [facility] [address] [id number] [address] [place] [address], [place] [address] Apr, [facility] [address] [id number] [address] [place] [address], [place] [id number] Apr, [facility] [address] [id number] [address] [place] [address], [place] [phone] Apr, [facility] [address] [id number] [address] [place] [address], [place] [id number] Apr, [facility] [address] [id number] [address] [place] [address], [place] [id number] Apr, [facility] [address] [id number] [address] [place] [address], [place] [id number] Apr, [facility] [address] [id number] [address] [place] [address], [place] [id number] Apr, [facility] [address] [id number] [address] [place] [address], [place] [phone] Feb, [facility] [address] [id number] [address] [place] [address], [place] [address] Feb, [facility] [address] [id number] [address] [place] [address], [place] [id number] Jan, [facility] [address] [id number] [address] [place] [address], [place] [id number] Jan, [facility] [address] [id number] [address] [place] [phone] Dec, [facility] [address] [id number] [address] [place] [address], [place] [address] Dec, [facility] [address] [id number] [address] [place] [address], [place] [id number] Dec, [facility] [address] [id number] [address] [place] [phone] Nov, [facility] [address] [id number] [address] [place] [phone] Nov, [facility] [address] [id number] [address] [place] [address], [place] [id number] Nov, [facility] [address] [id number] [address] [place] [address], [place] [phone] Oct, [facility] [address] [id number] [address] [place] [address], [place] [id number] Oct, [facility] [address] [id number] [address] [place] [address], [place] [id number] Oct, [facility] [address] [id number] [address] [place] [address], [place] [address] September, [facility] [address] [id number] [address] [place] [address], [place] [address] September, [facility] [address] [id number] [address] [place] [address], [place] [address] September, [facility] [address] [id number] [address] [place] [address], [place] [address] Aug, [facility] [address] [id number] [address] [place] [address], [place] [address] Aug, [facility] [address] [id number] [address] [place] [address], [place] [address] Aug, [facility] [address] [id number] [address] [place] [address], [place] [id number] 16 Aug, 2011 [facility] [address] [id number] [address] [place] [address], [place] [address] Jul, [facility] [address] [id number] [address] [place] [address], [place] [address] Jun, [facility] [address] [id number] [address] [place] [address], [place] [id number] 14 Jun, 2011 [facility] [address] [id number] [address] [place] [address], [place] [id number] 13 Jun, 2011 [facility] [address] [id number] [address] [place] [address], [place] [id number] 07 Jun, 2011 [facility] [address] [id number] [address] [place] [address], [place] [address] Jun, [facility] [address] [id number] [address] [place] [address], [place] [phone] May, [facility] [address] [id number] [address] [place] [address], [place] [address] May, [facility] [address] [id number] [address] [place] [address], [place] [address] May, [facility] [address] [id number] [address] [place] [address], [place] [address] May, [facility] [address] [id number] [address] [place] [address], [place] [address] Apr, [facility] [address] [id number] [address] [place] [address], [place] [id number] Apr, [facility] [address] [id number] [address] [place] [address], [place] [address] Apr, [facility] [address] [id number] [address] [place] [address], [place] [address] Mar, [facility] [address] [id number] [address] [place] [address], [place] [address] Mar, [facility] [address] [id number] [address] [place] [address], [place] [address] Mar, [facility] [address] [id number] [address] [place] [address], [place] [address] Feb, [facility] [address] [id number] [address] [place] [address], [place] [address] Feb, [facility] [address] [id number] [address] [place] [address], [place] [id number] 13 Feb, 2011 [facility] [address] [id number] [address] [place] [phone] Nov, [facility] [address] [id number] [address] [place] [phone] September, [facility] [address] [id number] [address] [place] [phone] Aug, [facility] [address] [id number] [address] [place] [phone] Jul, [facility] [address] [id number] [address] [place] [phone] May, [facility] [address] [id number] [address] [place] [id number] Apr, [facility] [address] [id number] [address] [place] [phone] Apr, [facility] [address] [id number] [address] [place] [id number] Apr, [facility] [address] [id number] [address] [place] [phone] Apr, [facility] [address] [id number] [address] [place] [phone] Apr, IMMUNIZATIONS No Known Immunizations SOCIAL HISTORY Never Assessed REASON FOR VISIT [facility] PLAN OF CARE VITAL SIGNS MEDICATIONS Unknown [...]
--- OUTSIDE RECORDS SUMMARY | 2019-07-17 10:43 | XMS REPORT ---
Author Author Sujey Renteria Doctor Organization [facility] Address Unknown Phone Unavailable Care Team Providers Care Telegraph Editor Name Role Phone Migration, Doctor Unavailable Unavailable PROBLEMS Type Condition ICD9-CM Code HAR59-SN Code Onset Dates Condition S tatus SNOMED Code Problem Other chronic pain G89.29 Active 8 7594512 Problem Chronic post-traumatic stress disorder (PTSD) F43. 12 Active 252081313 Problem Bipolar 1 disorder, depressed, moderate F31.32 Active 44970765 Problem Attention deficit hyperactiv ity disorder (ADHD), predominantly inattentive type F90.0 Active 58403779 Problem Bipolar affective disorder, remission status unspecified F31.9 Active 13311017 Problem Acute non-recurrent maxillary sinusitis J01.00 Active 09944236 Problem Bipolar I disorder with depression F31.9 Active 27135121 Problem Essential tremor G25.0 Active 609 082605 Problem Chronic obstructive pulmonary disease, unspecified J44.9 Active 01679379 Problem Schizoaffective disorder, bipolar type F25.0 Active 94104827 Problem Panic disorder with agoraphobia F40.01 Active 26650690 Problem Lumbago with sciatica, right side M54.41 Active 162308808 Problem Lumbago with sciatica, left side M54.42 Active 408721339 Problem Akathisia G25.71 Active 105214890 Problem Panlobular emphysema J43.1 Active 2537833 Problem Fibrocystic disease of left breast N60.12 Active 36416182 Problem Hypertension I10 Active 9317828 3 Problem Migraine without aura and without status migrain osus, not intractable G43.009 Active 985109616 Problem Diabetes E11.9 Active 60790727 Problem Arthritis M19.90 Active 1887218 Problem Anxiety disorder, unspecified F41.9 Active 496087840 Problem Fibrocystic disease of right breast N60.11 Active 81130227 Problem Back pain M54.9 Active 178716832 Problem Irritable bowel syndrome with both constipation and diarrh ea K58.2 Active 46695931 Problem Fibromyalgia M79.7 Active 3629692 7 Problem Irritable bowel syndrome with constipation K58.1 Active 803580089 Problem Other bipolar disorder F31.89 Active 27190609 Problem Slow transit constipation K59.01 Acti ve 98506355 Problem Daytime somnolence R40.0 Active 1 31376034285 Problem Abnormal mammogram of right breast R92.8 Active 472563479 Problem Diffuse cystic mastopathy of left breast N60.12 Active 18138732 Problem Mild persistent asthma without complication J45.30 Active 127227373 Problem Diffuse cystic mastopathy of right breast N60.11 Active 83821029 Problem Bipolar 1 disorder, depressed, partial remission F 31.75 Active 33206115 Problem Moderate persistent asthma without complication J4 5.40 Active 343857967 Problem Tinnitus of right ear H93.11 Active 61265566 Problem Tinnitus of both ears H93.13 Active 0742876225157 Problem GERD (gastroesophageal reflux disease) K21.9 Active 204006387 Problem Contracture, left hand M24.542 Active 202309087725130 Problem Mood disorder F39 Active 317033 05 ALLERGIES No Information ENCOUNTERS Encounter Location Date Diagnosis [facility] [address] [facility] [id number] [address] [place] [phone] Oct, [facility] [address] [facility] [id number] [address] [place] [address] Aug, [facility] [address] [facility] [id number] [address] [place] [address] Aug, Hypertension I10 [facility] [address] [facility] [id number] [address] [place] [phone] Aug, [facility] [address] [facility] [id number] [address] [place] [address] Aug, [facility] [address] [facility] [id number] [address] [place] [address] Aug, Diabetes E11.9 and Edema of both legs R60.0 [facility] [address] [facility] [id number] [address] [place] [address] Aug, Panic disorder with agorapho syd F40.01 ; Other chronic pain G89.29 and Daytime somnolence R40.0 [facility] [address] [facility] [id number] [address] [place] [phone] Jul, [facility] [address] [facility] [id number] [address] [place] [address] Jul, [facility] [address] [facility] [id number] [address] [place] [phone] Jul, Diffuse cystic mastopathy of left breast N60.12 and Diffuse cystic mastopathy of right breast N60.11 [place] [id number] [facility] [id number] [address] [place] [phone] Jul, Fibrocystic disease of right breast N60.11 [place] [address] [facility] [id number] [address] [place] [address] 18 Jul, 2018 Fibrocystic disease of right breast N60.11 and Fibrocystic disease of left breast N60.12 [place] [address] [facility] [id number] [address] [place] [address] 15 Jul, 2018 Encounter for Medicare annua l wellness exam Z00.00 ; Schizoaffective disorder, bipolar type F25.0 ; Chronic obstructive pulmonary disease, unspecified J44.9 ; Fibromyalgia M79.7 and Acute non-recurrent maxillary sinusitis J01.00 [place] [address] [place] [id number] [address] [place] [address] 14 Jul, 2018 Daytime somnolence R40.0 [place] [address] [facility] [id number] [address] [place] [phone] 14 Jul, 2018 [place] [address] [facility] [id number] [address] [place] [phone] 13 Jul, 2018 [place] [address] [facility] [id number] [address] [place] [address] 12 Jul, 2018 Panic disorder with agorapho syd F40.01 ; Anxiety disorder, unspecified F41.9 ; Other chronic pain G89.29 and Daytime somnolence R40.0 [place] [address] [id number] [address] [place] [phone] Jul, [facility] [address] [id number] [address] [place] [address] Jun, [facility] [address] [facility] [id number] [address] [place] [address] 08 Jun, 2018 Hip pain, left M25.552 ; Leg pain, left M79.605 ; Lumbar pain M54.5 and Mood disorder F39 [facility] [address] [id number] [address] [place] [id number] 08 Jun, 2018 Diabetes E11.9 ; Other chron ic pain G89.29 and Anxiety disorder, unspecified F41.9 [facility] [address] [facility] [id number] [address] [place] [id number] 07 Jun, 2018 Hip pain, left M25.552 ; Leg pain, left M79.605 ; Lumbar pain M54.5 and Mood disorder F39 [facility] [address] [facility] [id number] [address] [place] [address] May, Diabetes E11.9 [facility] [address] [facility] [id number] [address] [place] [address] May, [facility] [address] [facility] [id number] [address] [place] [address] May, Other chronic pain G89.29 an d Anxiety disorder, unspecified F41.9 [facility] [address] [facility] [id number] [address] [place] [phone] May, [facility] [address] [facility] [id number] [address] [place] [address] May, [facility] [address] [facility] [id number] [address] [place] [address] May, Tinnitus of right ear H93.11 [facility] [address] [facility] [id number] [address] [place] [phone] 03 Eulalio, 2019 Diabetes E11.9 ; Tinnitus of both ears H93.13 ; Contracture, left hand M24.542 and Family history of rheumatic joint disease Z82.69 [place] [id number] [id number] [address] [place] [phone] Apr, [facility] [address] [id number] [address] [place] [address] Apr, [place] [address] [id number] [address] [place] [address] Apr, Tinnitus of right ear H93.11 and Hypertension I10 [place] [address] [id number] [address] [place] [phone] Apr, Other chronic pain G89.29 ; Daytime somnolence R40.0 and Anxiety disorder, unspecified F41.9 [place] [address] [id number] [address] [place] [phone] Apr, [place] [address] [id number] [address] [place] [address] Apr, [place] [address] [id number] [address] [place] [address] Mar, Tinnitus of right ear H93.11 [place] [address] [id number] [address] [place] [address] Mar, [place] [address] [id number] [address] [place] [address] Mar, Anxiety disorder, unspecifie d F41.9 ; Other chronic pain G89.29 and Daytime somnolence R40.0 [place] [address] [id number] [address] [place] [phone] Mar, Irritable bowel syndrome wit h both constipation and diarrhea K58.2 [place] [address] [id number] [address] [place] [phone] Mar, [place] [address] [facility] [id number] [address] [place] [address] Mar, Hypertension I10 [facility] [address] [facility] [id number] [address] [place] [phone] Mar, [facility] [address] [facility] [id number] [address] [place] [id number] Mar, [facility] [address] [facility] [id number] [address] [place] [id number] Mar, [facility] [address] [facility] [id number] [address] [place] [address] Mar, Diabetes E11.9 [facility] [address] [facility] [id number] [address] [place] [phone] Mar, [facility] [address] [facility] [id number] [address] [place] [id number] Feb, Daytime somnolence R40.0 and Anxiety disorder, unspecified F41.9 [facility] [address] [facility] [id number] [address] [place] [address] Feb, [facility] [address] [facility] [id number] [address] [place] [phone] Feb, [facility] [address] [facility] [id number] [address] [place] [phone] Feb, Tremors of nervous system R2 5.1 and Acute swimmer''s ear of right side H60.331 [facility] [address] [facility] [id number] [address] [place] [address] Feb, Cerebrovascular accident (CV A) due to occlusion of right cerebellar artery I63.541 and Hypertension I10 [facility] [address] [facility] [id number] [address] [place] [id number] Feb, [facility] [address] [facility] [id number] [address] [place] [phone] Feb, Cerebrovascular accident (CV A) due to occlusion of right cerebellar artery I63.541 [facility] [address] [place] [address] [id number] [place] [id number] Feb, Hyponatremia E87.1 [place] [address] [id number] Feb, [place] [address] [address] Feb, Daytime somnolence R40.0 [place] [address] [address] Feb, [place] [address] [address] Jan, [place] [address] [address] Jan, [place] [address] [address] Jan, Chronic obstructive pulmonar y disease, unspecified J44.9 and Anxiety disorder, unspecified F41.9 [place] [address] [address] Jan, Hypertension I10 ; Fibromyal medhat M79.7 and Lumbago with sciatica, left side M54.42 [place] [address] [address] 26 Jan, 2018 [place] [address] [address] 20 Jan, 2018 Cerebrovascular accident (CV A) due to occlusion of right cerebellar artery I63.541 [place] [address] [place] [id number] [address] [place] [phone] 19 Jan, 2018 [place] [address] [address] 13 Jan, 2018 Arthritis M19.90 [place] [address] [place] [id number] [address] [place] [address] 07 Jan, 2018 [place] [address] [address] Jan, Abnormal mammogram of right breast R92.8 [place] [address] [id number] [address] [place] [address] Dec, Daytime somnolence R40.0 and Right otitis media with effusion H65.91 [facility] [address] [id number] [address] [place] [address] Dec, [place] [address] [id number] [address] [place] [address] Dec, Cerebrovascular accident (CV A) due to occlusion of right cerebellar artery I63.541 [place] [address] [id number] [address] [place] [id number] Dec, [place] [address] [id number] [address] [place] [address] Dec, [place] [address] [facility] [id number] [address] [place] [address] Nov, Bipolar 1 disorder, depresse d, partial remission F31.75 and Panic disorder with agoraphobia F40.01 [place] [address] [facility] [id number] [address] [place] [address] Nov, Panlobular emphysema J43.1 [place] [address] [facility] [id number] [address] [place] [address] Nov, Cerebrovascular accident (CV A) due to occlusion of right cerebellar artery I63.541 and Acute non-recurrent maxillary sinusitis J01.00 [place] [id number] [id number] [address] [place] [phone] Nov, Panlobular emphysema J43.1 [facility] [address] [id number] [address] [place] [address] Nov, [facility] [address] [id number] [address] [place] [address] Nov, [place] [address] [id number] [address] [place] [phone] Nov, [facility] [address] [id number] [address] [place] [address] Nov, [facility] [address] [id number] [address] [place] [address] Nov, [facility] [address] [facility] [id number] [address] [place] [address] Nov, [facility] [address] [facility] [id number] [address] [place] [address] Nov, [facility] [address] [facility] [id number] [address] [place] [address] Nov, Mild persistent asthma witho ut complication J45.30 and Irritable bowel syndrome with both constipation and diarrhea K58.2 [facility] [address] [facility] [id number] [address] [place] [id number] Nov, [facility] [address] [facility] [id number] [address] [place] [phone] Oct, [facility] [address] [facility] [id number] [address] [place] [address] Oct, [facility] [address] [facility] [id number] [address] [place] [address] Oct, Type 2 diabetes mellitus wit h diabetic neuropathy, 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 ; Diabetes E11.9 ; Slow transit constipation K59.01 ; Edema of both legs R60.0 and Dysfunction of right eustachian tube H69.81 [facility] [address] [facility] [id number] [address] [place] [address] Oct, Frequent headaches R51 [facility] [address] [facility] [id number] [address] [place] [address] Oct, [facility] [address] [facility] [id number] [address] [place] [address] Oct, [facility] [address] [facility] [id number] [address] [place] [address] Oct, [facility] [address] [id number] [address] [place] [address] Oct, [facility] [address] [facility] [id number] [address] [place] [address] Oct, [facility] [address] [facility] [id number] [address] [place] [phone] Oct, [facility] [address] [facility] [id number] [address] [place] [phone] Oct, [facility] [address] [facility] [id number] [address] [place] [address] Oct, [facility] [address] [facility] [id number] [address] [place] [address] September, Frequent headaches R51 [facility] [address] [place] [id number] [address] [place] [address] September, Bilateral otitis media with effusion H65.93 ; Dizziness R42 and Essential tremor G25.0 [facility] [address] [facility] [id number] [address] [place] [address] September, Chronic obstructive pulmonar y disease, unspecified COPD type J44.9 [facility] [address] [place] [id number] [address] [place] [id number] September, Chronic obstructive pulmonar y disease, unspecified COPD type J44.9 [facility] [address] [facility] [id number] [address] [place] [address] September, Migraine without aura and wi thout status migrainosus, not intractable G43.009 [facility] [address] [facility] [id number] [address] [place] [address] September, [facility] [address] [facility] [id number] [address] [place] [address] September, [facility] [address] [place] [id number] [address] [place] [address] September, [place] [address] [facility] [id number] [address] [place] [address] September, Frequent headaches R51 [place] [address] [facility] [id number] [address] [place] [address] Aug, [place] [address] [place] [id number] [address] [place] [address] Aug, Breast mass, right N63.10 [place] [address] [facility] [id number] [address] [place] [address] Aug, Breast lump N63.0 [place] [address] [place] [id number] [address] [place] [phone] Aug, [place] [address] [place] [id number] [address] [place] [address] Aug, Bipolar affective disorder, remission status unspecified F31.9 and Diabetes E11.9 [place] [address] [place] [id number] [address] [place] [address] Aug, Diabetes E11.9 ; Schizoaffec tive disorder, bipolar type F25.0 ; Pharyngitis due to other organism J02.8 ; Panlobular emphysema J43.1 and Irritable bowel syndrome with both constipation and diarrhea K58.2 [place] [address] [place] [id number] [address] [place] [address] Aug, Abnormal mammogram R92.8 [place] [address] [facility] [id number] [address] [place] [address] Aug, [place] [address] [place] [id number] [address] Aug, Bipolar 1 disorder, depresse d, moderate F31.32 ; Panic disorder with agoraphobia F40.01 and Chronic post-traumatic stress disorder (PTSD) F43.12 [place] [address] [place] [id number] [address] [place] [address] Aug, [facility] [address] [id number] [address] [place] [phone] Aug, [facility] [address] [id number] [address] [place] [address] Aug, [facility] [address] [facility] [id number] [address] [place] [phone] Jul, [facility] [address] [id number] [address] [place] [id number] Jul, Mild persistent asthma witho ut complication J45.30 [facility] [address] [id number] [address] [place] [id number] 19 Jul, 2017 Mild persistent asthma witho ut complication J45.30 [facility] [address] [facility] [id number] [address] [place] [address] 15 Jul, 2017 Bipolar affective disorder, remission status unspecified F31.9 ; Diabetes E11.9 and Irritable bowel syndrome with constipation K58.1 [facility] [address] [id number] [address] [place] [phone] Jul, [facility] [address] [facility] [id number] [address] [place] [address] Jul, [facility] [address] [facility] [id number] [address] [place] [phone] Jul, Frequent headaches R51 [facility] [address] [id number] [address] [place] [phone] 07 Jul, 2017 [facility] [address] [id number] [address] [place] [phone] Jul, [facility] [address] [id number] [address] [place] [phone] Jul, [facility] [address] [facility] [id number] [address] [place] [address] Jul, Frequent headaches R51 ; Fib rocystic disease of left breast N60.12 ; Fibrocystic disease of right breast N60.11 and Diabetes E11.9 [facility] [address] [facility] [id number] [address] [place] [phone] Jul, [facility] [address] [facility] [id number] [address] [place] [phone] 02 Jul, 2017 [facility] [address] [facility] [id number] [address] [place] [address] 21 Jun, 2017 Exudative tonsillitis J03.90 [facility] [address] [facility] [id number] [address] [place] [phone] 20 Jun, 2017 [facility] [address] [facility] [id number] [address] [place] [phone] 19 Jun, 2017 [facility] [address] [facility] [id number] [place] [phone] 15 Jun, 2017 Mild persistent asthma witho ut complication J45.30 ; Chronic obstructive pulmonary disease, unspecified COPD type J44.9 and Exudative tonsillitis J03.90 [facility] [address] [facility] [id number] [address] [place] [phone] 13 Jun, 2017 Encounter for immunization Z 23 [facility] [address] [facility] [id number] [address] [place] [phone] 12 Jun, 2017 [facility] [address] [place] [id number] [address] [place] [phone] 12 Jun, 2017 [facility] [address] [facility] [id number] [address] [place] [phone] 09 Jun, 2017 [facility] [address] [facility] [id number] [address] [place] [phone] 06 Jun, 2017 Tonsillitis J03.90 [facility] [address] [facility] [id number] [address] [place] [phone] 05 Jun, 2017 [facility] [address] [place] [id number] [address] [place] [phone] 03 Jun, 2017 Acute non-recurrent maxillar y sinusitis J01.00 [facility] [address] [facility] [id number] [address] [place] [phone] 02 Jun, 2017 [facility] [address] [facility] [id number] [address] [place] [phone] May, [facility] [address] [facility] [id number] [address] [place] [phone] May, [facility] [address] [facility] [id number] [address] [place] [phone] May, GERD (gastroesophageal reflu x disease) K21.9 [facility] [address] [facility] [id number] [address] [place] [phone] May, Migraine without aura and wi thout status migrainosus, not intractable G43.009 [facility] [address] [facility] [id number] [address] [place] [phone] May, [facility] [address] [facility] [id number] [address] [place] [phone] May, [facility] [address] [facility] [id number] [address] [place] [phone] May, Panlobular emphysema J43.1 a nd Acute non-recurrent maxillary sinusitis J01.00 [place] [address] [place] [id number] [address] [place] [phone] May, Bipolar 1 disorder, depresse d, moderate F31.32 ; Panic disorder with agoraphobia F40.01 and Akathisia G25.71 [facility] [address] [facility] [id number] [address] [place] [phone] Apr, [facility] [address] [facility] [id number] [address] [place] [phone] Apr, [facility] [address] [facility] [id number] [address] [place] [phone] Apr, Acute non-recurrent maxillar y sinusitis J01.00 [facility] [address] [place] [id number] [address] [place] [id number] 07 Apr, 2017 Panlobular emphysema J43.1 [facility] [address] [id number] [address] [place] [id number] 04 Apr, 2017 [facility] [address] [facility] [id number] [address] [place] [id number] Apr, Exudative tonsillitis J03.90 and Sore throat J02.9 [facility] [address] [id number] [address] [place] [id number] 17 Mar, 2017 [facility] [address] [facility] [id number] [address] [place] [phone] 15 Mar, 2017 Acute non-recurrent maxillar y sinusitis J01.00 [facility] [address] [facility] [id number] [address] [place] [id number] Mar, [facility] [address] [facility] [id number] [address] [place] [phone] Mar, Panlobular emphysema J43.1 a nd Diabetes E11.9 [facility] [address] [facility] [id number] [address] [place] [id number] 06 Mar, 2017 [facility] [address] [facility] [id number] [address] [place] [id number] 24 Feb, 2017 Wheezing R06.2 and Acute rec urrent pansinusitis J01.41 [facility] [address] [facility] [id number] [address] [place] [address] Feb, [facility] [address] [facility] [id number] [address] [place] [phone] Feb, Acute non-recurrent maxillar y sinusitis J01.00 [facility] [address] [facility] [id number] [address] [place] [phone] Feb, Chronic obstructive pulmonar y disease, unspecified J44.9 [facility] [address] [facility] [id number] [address] [place] [phone] Feb, Hypoxemia R09.02 and Chronic obstructive pulmonary disease, unspecified J44.9 [place] [address] [facility] [id number] [address] [place] [id number] 28 Jan, 2017 Bipolar 1 disorder, depresse d, moderate F31.32 ; Panic disorder with agoraphobia F40.01 ; Chronic post-traumatic stress disorder (PTSD) F43.12 ; Diabetes E11.9 and Moderate persistent asthma without complication J45.40 [place] [address] [facility] [id number] [address] [place] [address] Jan, [place] [address] [facility] [id number] [address] [place] [id number] Jan, Acute non-recurrent maxillar y sinusitis J01.00 [place] [address] [place] [id number] [address] [place] [phone] Jan, [place] [address] [place] [id number] [address] [place] [phone] Jan, [place] [address] [facility] [id number] [address] [place] [phone] Jan, Moderate persistent asthma w [facility] complication J45.40 and Hypoxemia R09.02 [place] [address] [facility] [id number] [address] [place] [phone] Jan, Moderate persistent asthma w [facility] complication J45.40 and Hypoxemia R09.02 [place] [address] [facility] [id number] [address] [place] [address] Jan, [place] [address] [facility] [id number] [address] [place] [id number] Dec, Acute non-recurrent maxillar y sinusitis J01.00 [place] [address] [facility] [id number] [address] [place] [phone] Dec, Chronic obstructive pulmonar y disease, unspecified J44.9 [place] [address] [place] [id number] [address] [place] [phone] Dec, [facility] [address] [facility] [id number] [address] [place] [id number] Dec, Mild persistent asthma witho ut complication J45.30 and Other chronic pain G89.29 [facility] [address] [id number] [address] [place] [phone] Nov, [facility] [address] [facility] [id number] [address] [place] [address] Nov, Acute non-recurrent maxillar y sinusitis J01.00 [facility] [address] [facility] [id number] [address] [place] [phone] Nov, [place] [address] [facility] [id number] [address] [place] [phone] Nov, [facility] [address] [facility] [id number] [address] [place] [phone] Oct, [facility] [address] [facility] [id number] [address] [place] [phone] Oct, Bipolar 1 disorder, depresse d, partial remission F31.75 ; Panic disorder with agoraphobia F40.01 and Chronic post-traumatic stress disorder (PTSD) F43.12 [facility] [address] [facility] [id number] [address] [place] [id number] Oct, Acute non-recurrent maxillar y sinusitis J01.00 [facility] [address] [facility] [id number] [address] [place] [id number] Oct, [facility] [address] [facility] [id number] [address] [place] [id number] Oct, Diabetes E11.9 [facility] [address] [facility] [id number] [address] [place] [address] September, Diabetes E11.9 [facility] [address] [facility] [id number] [address] [place] [address] September, Diabetes E11.9 and Sinus tac hycardia R00.0 [place] [address] [id number] [address] [place] [phone] September, [facility] [address] [facility] [id number] [address] [place] [id number] September, [facility] [address] [facility] [id number] [address] [place] [phone] Aug, Diabetes E11.9 and Lumbago w ith sciatica, right side M54.41 [facility] [address] [facility] [id number] [address] [place] [phone] Aug, [facility] [address] [facility] [id number] [address] [place] [address] Jul, Bipolar 1 disorder, depresse d, moderate F31.32 ; Panic disorder with agoraphobia F40.01 and Chronic post-traumatic stress disorder (PTSD) F43.12 [facility] [address] [facility] [id number] [address] [place] [id number] Jul, Sore throat J02.9 [facility] [address] [facility] [id number] [address] [place] [phone] Jul, [facility] [address] [facility] [id number] [address] [place] [id number] Jul, [facility] [address] [facility] [id number] [address] [place] [id number] Jul, [facility] [address] [facility] [id number] [address] [place] [address] Jul, [facility] [address] [facility] [id number] [address] [place] [phone] Jul, Sore throat J02.9 and Pharyn gitis, unspecified etiology J02.9 [facility] [address] [id number] [address] [place] [id number] Jun, [facility] [address] [facility] [id number] [address] [place] [address] Jun, Diabetes E11.9 [facility] [address] [id number] [address] [place] [phone] Jun, [facility] [address] [id number] [address] [place] [address] Jun, [facility] [address] [id number] [address] [place] [id number] Jun, [facility] [address] [id number] [address] [place] [phone] Jun, [facility] [address] [id number] [address] [place] [phone] Jun, [facility] [address] [id number] [address] [place] [phone] Jun, [facility] [address] [id number] [address] [place] [id number] Jun, [facility] [address] [id number] [address] [place] [phone] Jun, [facility] [address] [id number] [address] [place] [id number] May, Diabetes E11.9 ; Other chron ic pain G89.29 ; Acute recurrent maxillary sinusitis J01.01 ; Bipolar I disorder with depression F31.9 and Anxiety disorder, unspecified F41.9 [facility] [address] [id number] [address] [place] [phone] May, [facility] [address] [id number] [address] [place] [phone] May, Diabetes E11.9 ; Bipolar I d isorder with depression F31.9 ; Anxiety disorder, unspecified F41.9 ; Other chronic pain G89.29 and Acute recurrent maxillary sinusitis J01.01 [facility] [address] [id number] [address] [place] [id number] May, [facility] [address] [id number] [address] [place] [phone] May, Attention deficit hyperactiv ity disorder (ADHD), predominantly inattentive type F90.0 [place] [id number] [id number] [address] [place] [id number] May, [place] [address] [id number] [address] [place] [phone] Apr, Attention deficit hyperactiv ity disorder (ADHD), predominantly inattentive type F90.0 and Non-seasonal allergic rhinitis due to other allergic trigger J30.89 [place] [address] [id number] [address] [place] [phone] Apr, Bipolar 1 disorder, depresse d, moderate F31.32 ; Panic disorder with agoraphobia F40.01 and Chronic post-traumatic stress disorder (PTSD) F43.12 [place] [address] [place] [id number] [address] [place] [id number] Apr, Dental examination Z01.20 [place] [address] [id number] [address] [place] [id number] Mar, [place] [address] [facility] [id number] [address] [place] [phone] Mar, [place] [address] [facility] [id number] [address] [place] [address] Mar, Bipolar I disorder with depr ession F31.9 and Anxiety disorder, unspecified F41.9 [place] [address] [facility] [id number] [address] [place] [phone] 08 Mar, 2016 Panic disorder with agorapho syd F40.01 ; Bipolar 1 disorder, depressed, moderate F31.32 and Chronic post-traumatic stress disorder (PTSD) F43.12 [place] [address] [facility] [id number] [address] [place] [phone] 04 Mar, 2016 [place] [address] [facility] [id number] [address] [place] [phone] Mar, Dental caries K02.9 [facility] [address] [facility] [id number] [address] [place] [id number] 24 Feb, 2016 Lumbago with sciatica, left side M54.42 ; Lumbago with sciatica, right side M54.41 and Other chronic pain G89.29 [facility] [address] [facility] [id number] [address] [place] [id number] 17 Feb, 2016 [facility] [address] [place] [id number] [phone] 14 Feb, 2016 [facility] [address] [id number] 13 Feb, 2016 Bipolar I disorder with depr ession F31.9 ; PTSD (post-traumatic stress disorder) F43.10 and Mood disorder F39 [place] [address] [id number] 13 Feb, 2016 [place] [address] [address] Feb, Dental examination Z01.20 [place] [address] [id number] 07 Feb, 2016 [facility] [address] [place] [id number] [address] [place] [phone] 03 Feb, 2016 Acute bronchitis, unspecifie d organism J20.9 [facility] [address] [place] [id number] [address] [place] [id number] 26 Jan, 2016 Mood disorder F39 ; Migraine without aura and without status migrainosus, not intractable G43.009 ; Irritable bowel syndrome, unspecified type K58.9 ; Diabetes E11.9 and Encounter for immunization Z23 [place] [address] [place] [id number] [address] [place] [phone] 15 Jan, 2016 [place] [address] [place] [id number] [address] [place] [id number] 06 Jan, 2016 [facility] [address] [address] Jan, [facility] [address] [facility] [id number] [address] [place] [phone] Jan, [facility] [address] [facility] [id number] [address] [place] [phone] Jan, [facility] [address] [facility] [id number] [address] [place] [phone] Dec, Bipolar I disorder with depr ession F31.9 ; PTSD (post-traumatic stress disorder) F43.10 and Panic disorder with agoraphobia F40.01 [facility] [address] [facility] [id number] [address] [place] [id number] Dec, Chronic obstructive pulmonar y disease, unspecified COPD type J44.9 ; Tremor R25.1 and Anxiety F41.9 [facility] [address] [facility] [id number] [address] [place] [phone] Dec, [facility] [address] [facility] [id number] [address] [place] [phone] Nov, Tremors of nervous system R2 5.1 and Cramping of feet R25.2 [facility] [address] [facility] [id number] [address] [place] [id number] Nov, [facility] [address] [facility] [id number] [address] [place] [phone] Nov, [facility] [address] [facility] [id number] [address] [place] [phone] Oct, Chronic obstructive pulmonar y disease, unspecified J44.9 [facility] [address] [facility] [id number] [address] [place] [phone] Oct, [facility] [address] [facility] [id number] [address] [place] [phone] Oct, Tremor R25.1 [facility] [address] [facility] [id number] [address] [place] [phone] Oct, Bipolar I disorder with depr ession F31.9 ; Diabetes E11.9 ; PTSD (post-traumatic stress disorder) F43.10 and Panic disorder with agoraphobia F40.01 [place] [id number] [facility] [id number] [address] [place] [phone] Oct, Mood disorder F39 [place] [id number] [facility] [id number] [address] [place] [phone] September, [place] [address] [place] [id number] [address] [place] [id number] September, Diabetes E11.9 ; Bipolar I d isorder with depression F31.9 ; PTSD (post-traumatic stress disorder) F43.10 and Panic disorder with agoraphobia F40.01 [place] [address] [facility] [id number] [address] [place] [address] September, Mood disorder F39 ; Schizoaf fective disorder, unspecified type F25.9 ; Arthritis M19.90 ; Tremor R25.1 ; Acute non-recurrent frontal sinusitis J01.10 and Blood in stool K92.1 [place] [address] [facility] [id number] [address] [place] [id number] September, [place] [address] [facility] [id number] [address] [place] [phone] September, Chronic obstructive pulmonar y disease, unspecified J44.9 [place] [address] [facility] [id number] [address] [place] [phone] September, Diabetes E11.9 [place] [id number] [facility] [id number] [address] [place] [phone] Aug, Other bipolar disorder F31.8 9 and Anxiety disorder, unspecified F41.9 [place] [address] [facility] [id number] [address] [place] [phone] Aug, [place] [address] [facility] [id number] [address] [place] [phone] Aug, Diabetes E11.9 [place] [address] [id number] [address] [place] [phone] 18 Aug, 2015 [facility] [address] [id number] [address] [place] [phone] 14 Aug, 2015 Diabetes E11.9 ; Fatigue R53 .83 and Dizziness R42 [facility] [address] [id number] [address] [place] [phone] Aug, Other bipolar disorder F31.8 9 [facility] [address] [id number] [address] [place] [phone] 07 Aug, 2015 Generalized anxiety disorder F41.1 [facility] [address] [id number] [address] [place] [phone] 07 Aug, 2015 Other bipolar disorder F31.8 9 and Anxiety disorder, unspecified F41.9 [facility] [address] [facility] [id number] [address] [place] [phone] Aug, [facility] [address] [id number] [address] [place] [phone] 29 Jul, 2015 [facility] [address] [id number] [address] [place] [phone] 24 Jul, 2015 [facility] [address] [facility] [id number] [address] [place] [id number] 23 Jul, 2015 Bronchitis J40 [facility] [address] [facility] [id number] [address] [place] [address] Jul, Anxiety disorder F41.9 [facility] [address] [id number] [address] [place] [phone] Jul, Other bipolar disorder F31.8 9 and Anxiety disorder, unspecified F41.9 [facility] [address] [facility] [id number] [address] [place] [phone] 18 Jul, 2015 Other bipolar disorder F31.8 9 and Fibromyalgia M79.7 [facility] [address] [facility] [id number] [address] [place] [id number] 10 Jul, 2015 [facility] [address] [place] [id number] [address] [place] [phone] Jul, [facility] [address] [id number] Jul, [facility] [address] [place] [id number] [place] [address] Jul, Other bipolar disorder F31.8 9 and Anxiety disorder, unspecified F41.9 [facility] [address] [address] Jun, GERD (gastroesophageal reflu x disease) K21.9 [facility] [address] [id number] Jun, [facility] [address] [address] May, [facility] [address] [address] May, Diabetes E11.9 ; Back pain M 54.9 ; GERD (gastroesophageal reflux disease) K21.9 ; Hypertension I10 and Peripheral neuropathy G62.9 [facility] [address] [address] Mar, [facility] [address] [address] Mar, [facility] [address] [address] Mar, Acute sinusitis J01.90 and O titis media, left H66.92 [facility] [address] [address] Feb, [facility] [address] [address] Feb, [facility] [address] [address] Feb, [facility] [address] [facility] [id number] [address] [place] [id number] Feb, [facility] [address] [place] [id number] [place] [address] Jan, [facility] [address] [facility] [id number] [address] [place] [address] Jan, Diabetes 250.00 and Back higinio n 724.5 [facility] [address] [place] [id number] [address] [place] [address] Jan, [facility] [address] [place] [id number] [address] [place] [address] Dec, Diabetes 250.00 ; Benign ess ential hypertension 401.1 and Allergic rhinitis 477.9 [facility] [address] [place] [id number] [address] [place] [id number] Dec, [facility] [address] [place] [id number] [address] [place] [id number] Dec, [facility] [address] [place] [id number] [address] [place] [address] Dec, Psychosis 298.9 [facility] [address] [place] [id number] [place] [phone] Dec, Medication side effect 995.2 0 and Generalized anxiety disorder 300.02 [facility] [address] [id number] [address] [place] [phone] Dec, Acquired cognitive dysfuncti on 294.9 [facility] [address] [id number] [address] [place] [phone] Dec, [facility] [id number] [place] [phone] Dec, Unspecified myalgia and myos itis 729.1 and Generalized anxiety disorder 300.02 [facility] [address] [id number] [address] [place] [phone] Nov, [facility] [address] [id number] [address] [place] [phone] Nov, [facility] [address] [id number] [address] [place] [phone] Nov, [facility] [address] [facility] [id number] [address] [place] [id number] Nov, Upper respiratory infection 465.9 and Chronic airway obstruction, not elsewhere classified 496 [facility] [address] [id number] [address] [place] [phone] Nov, Hyponatremia 276.1 [facility] [address] [id number] [address] [place] [phone] Oct, [facility] [address] [facility] [id number] [address] [place] [id number] Oct, [facility] [address] [facility] [id number] [address] [place] [phone] Oct, [facility] [address] [id number] [address] [place] [phone] Oct, [facility] [address] [facility] [id number] [address] [place] [phone] Oct, Hyponatremia 276.1 [facility] [address] [facility] [id number] [address] [place] [phone] Oct, [facility] [address] [facility] [id number] [address] [place] [phone] Oct, [facility] [address] [facility] [id number] [address] [place] [phone] Oct, Generalized anxiety disorder 300.02 [facility] [address] [facility] [id number] [address] [place] [phone] Oct, Generalized anxiety disorder 300.02 and Diabetes 250.00 [facility] [address] [facility] [id number] [address] [place] [phone] Aug, [facility] [address] [id number] [address] [place] [address], [place] [id number] 13 Aug, 2014 [facility] [address] [id number] [address] [place] [address], [place] [id number] Jul, [facility] [address] [id number] [address] [place] [address], [place] [id number] Jul, [facility] [address] [id number] [address] [place] [address], [place] [id number] Jun, [facility] [address] [id number] [address] [place] [address], [place] [id number] Jun, [facility] [address] [id number] [address] [place] [address], [place] [id number] Jun, [facility] [address] [id number] [address] [place] [address], [place] [id number] Jun, [facility] [address] [id number] [address] [place] [address], [place] [id number] Jun, [facility] [address] [id number] [address] [place] [address], [place] [id number] May, [facility] [address] [id number] [address] [place] [address], [place] [id number] May, [facility] [address] [id number] [address] [place] [address], [place] [id number] Apr, [facility] [address] [id number] [address] [place] [address], [place] [id number] Apr, [facility] [address] [id number] [address] [place] [address], [place] [id number] 18 Apr, 2013 [facility] [address] [id number] [address] [place] [address], [place] [id number] Apr, [facility] [address] [id number] [address] [place] [address], [place] [id number] 17 Apr, 2013 [facility] [address] [id number] [address] [place] [address], [place] [id number] Apr, [facility] [address] [id number] [address] [place] [address], [place] [id number] Apr, [facility] [address] [id number] [address] [place] [address], [place] [id number] Apr, [facility] [address] [id number] [address] [place] [address], [place] [id number] Feb, [facility] [address] [id number] [address] [place] [address], [place] [id number] Feb, [facility] [address] [id number] [address] [place] [address], [place] [id number] Jan, [facility] [address] [id number] [address] [place] [address], [place] [id number] Jan, [facility] [address] [id number] [address] [place] [address], [place] [id number] Dec, [facility] [address] [id number] [address] [place] [address], [place] [id number] Dec, [facility] [address] [id number] [address] [place] [address], [place] [address] Dec, [facility] [address] [id number] [address] [place] [address], [place] [address] Nov, [facility] [address] [id number] [address] [place] [address], [place] [address] Nov, [facility] [address] [id number] [address] [place] [id number] Nov, [facility] [address] [id number] [address] [place] [address], [place] [address] Oct, [facility] [address] [id number] [address] [place] [address], [place] [id number] Oct, [facility] [address] [id number] [address] [place] [address], [place] [id number] Oct, [facility] [address] [id number] [address] [place] [address], [place] [id number] September, [facility] [address] [id number] [address] [place] [address], [place] [id number] September, [facility] [address] [id number] [address] [place] [address], [place] [address] September, [facility] [address] [id number] [address] [place] [address], [place] [id number] Aug, [facility] [address] [id number] [address] [place] [address], [place] [id number] Aug, [facility] [address] [id number] [address] [place] [address], [place] [address] Aug, [facility] [address] [id number] [address] [place] [address], [place] [address] 16 Aug, 2011 [facility] [address] [id number] [address] [place] [address], [place] [address] Jul, [facility] [address] [id number] [address] [place] [address], [place] [id number] Jun, [facility] [address] [id number] [address] [place] [address], [place] [id number] 14 Jun, 2011 [facility] [address] [id number] [address] [place] [address], [place] [id number] 13 Jun, 2011 [facility] [address] [id number] [address] [place] [address], [place] [id number] 07 Jun, 2011 [facility] [address] [id number] [address] [place] [address], [place] [id number] 03 Jun, 2011 [facility] [address] [id number] [address] [place] [address], [place] [id number] 13 May, 2011 [facility] [address] [id number] [address] [place] [address], [place] [id number] 10 May, 2011 [facility] [address] [id number] [address] [place] [address], [place] [id number] May, [facility] [address] [id number] [address] [place] [address], [place] [id number] May, [facility] [address] [id number] [address] [place] [address], [place] [address] Apr, [facility] [address] [id number] [address] [place] [address], [place] [address] Apr, [facility] [address] [id number] [address] [place] [address], [place] [id number] Apr, [facility] [address] [id number] [address] [place] [address], [place] [address] Mar, [facility] [address] [id number] [address] [place] [address], [place] [address] Mar, [facility] [address] [id number] [address] [place] [address], [place] [address] Mar, [facility] [address] [id number] [address] [place] [address], [place] [address] Feb, [facility] [address] [id number] [address] [place] [address], [place] [address] Feb, [facility] [address] [id number] [address] [place] [id number] Feb, [facility] [address] [id number] [address] [place] [id number] Nov, [facility] [address] [id number] [address] [place] [id number] September, [facility] [address] [id number] [address] [place] [address], [place] [id number] Aug, [facility] [address] [id number] [address] [place] [address], [place] [id number] 14 Jul, 2010 [facility] [address] [id number] [address] [place] [id number] May, [facility] [address] [id number] [address] [place] [id number] Apr, [facility] [address] [facility] [id number] [address] [place] [id number] Apr, [facility] [address] [facility] [id number] [address] [place] [id number] Apr, [facility] [address] [facility] [id number] [address] [place] [id number] Apr, [facility] [address] [facility] [id number] [address] [place] [id number] Apr, IMMUNIZATIONS No Known Immunizations SOCIAL HISTORY Never Assessed REASON FOR VISIT EMR-[facility] PLAN OF CARE VITAL SIGNS MEDICATIONS Unknown [...]
--- OUTSIDE RECORDS SUMMARY | 2019-07-17 10:43 | XMS REPORT ---
Author Author Sujey Renteria Doctor Organization [facility] Address Unknown Phone Unavailable Care Team Providers Care Computational Theory Scientist Name Role Phone Migration, Doctor Unavailable Unavailable PROBLEMS Type Condition ICD9-CM Code NUL75-VS Code Onset Dates Condition S tatus SNOMED Code Problem Other chronic pain G89.29 Active 8 6658235 Problem Chronic post-traumatic stress disorder (PTSD) F43. 12 Active 103921597 Problem Bipolar 1 disorder, depressed, moderate F31.32 Active 45986889 Problem Attention deficit hyperactiv ity disorder (ADHD), predominantly inattentive type F90.0 Active 54645034 Problem Bipolar affective disorder, remission status unspecified F31.9 Active 69147567 Problem Acute non-recurrent maxillary sinusitis J01.00 Active 69886604 Problem Bipolar I disorder with depression F31.9 Active 70742986 Problem Essential tremor G25.0 Active 609 171446 Problem Chronic obstructive pulmonary disease, unspecified J44.9 Active 75399060 Problem Schizoaffective disorder, bipolar type F25.0 Active 37042124 Problem Panic disorder with agoraphobia F40.01 Active 46937341 Problem Lumbago with sciatica, right side M54.41 Active 611301743 Problem Lumbago with sciatica, left side M54.42 Active 110036345 Problem Akathisia G25.71 Active 537913150 Problem Panlobular emphysema J43.1 Active 5035764 Problem Fibrocystic disease of left breast N60.12 Active 71128050 Problem Hypertension I10 Active 7395564 3 Problem Migraine without aura and without status migrain osus, not intractable G43.009 Active 687217953 Problem Diabetes E11.9 Active 40197963 Problem Arthritis M19.90 Active 9957603 Problem Anxiety disorder, unspecified F41.9 Active 158201399 Problem Fibrocystic disease of right breast N60.11 Active 35180136 Problem Back pain M54.9 Active 355778607 Problem Irritable bowel syndrome with both constipation and diarrh ea K58.2 Active 79521354 Problem Fibromyalgia M79.7 Active 9697402 7 Problem Irritable bowel syndrome with constipation K58.1 Active 147740787 Problem Other bipolar disorder F31.89 Active 58109099 Problem Slow transit constipation K59.01 Acti ve 87197686 Problem Daytime somnolence R40.0 Active 1 41486779304 Problem Abnormal mammogram of right breast R92.8 Active 231297204 Problem Diffuse cystic mastopathy of left breast N60.12 Active 58596035 Problem Mild persistent asthma without complication J45.30 Active 491574731 Problem Diffuse cystic mastopathy of right breast N60.11 Active 69315718 Problem Bipolar 1 disorder, depressed, partial remission F 31.75 Active 99952547 Problem Moderate persistent asthma without complication J4 5.40 Active 466102778 Problem Tinnitus of right ear H93.11 Active 22764290 Problem Tinnitus of both ears H93.13 Active 5673778941992 Problem GERD (gastroesophageal reflux disease) K21.9 Active 036398302 Problem Contracture, left hand M24.542 Active [id number] Problem Mood disorder F39 Active 798367 05 ALLERGIES No Information ENCOUNTERS Encounter Location Date Diagnosis [facility] [place], [facility] [address] [facility] [id number] [address] [place] [address] Oct, [facility] [place] [address] [facility] [id number] [address] [place] [address] Aug, [facility] [place] [address] [facility] [id number] [address] [place] [address] Aug, Hypertension I10 [facility] [place] [address] [facility] [id number] [address] [place] [address] Aug, [facility] [place] [address] [facility] [id number] [address] [place] [address] Aug, [facility] [place] [address] [facility] [id number] [address] [place] [address] Aug, Diabetes E11.9 and Edema of both legs R60.0 [facility] [place] [address] [facility] [id number] [address] [place] [address] Aug, Panic disorder with agorapho syd F40.01 ; Other chronic pain G89.29 and Daytime somnolence R40.0 [facility] [place] [address] [facility] [id number] [address] [place] [address] Jul, [facility] [place] [address] [facility] [id number] [address] [place] [address] Jul, [facility] [place] [address] [facility] [id number] [address] [place] [address] Jul, Diffuse cystic mastopathy of left breast N60.12 and Diffuse cystic mastopathy of right breast N60.11 [place] [address] [facility] [id number] [address] [place] [address] Jul, Fibrocystic disease of right breast N60.11 [place] [address] [facility] [id number] [address] [place] [address] 18 Jul, 2018 Fibrocystic disease of right breast N60.11 and Fibrocystic disease of left breast N60.12 [place] [address] [facility] [id number] [address] [place] [address] 15 Jul, 2018 Encounter for Medicare annua l wellness exam Z00.00 ; Schizoaffective disorder, bipolar type F25.0 ; Chronic obstructive pulmonary disease, unspecified J44.9 ; Fibromyalgia M79.7 and Acute non-recurrent maxillary sinusitis J01.00 [place] [address] [place] [id number] [address] [place] [address] 14 Jul, 2018 Daytime somnolence R40.0 [place] [address] [facility] [id number] [address] [place] [address] 14 Jul, 2018 [place] [address] [facility] [id number] [address] [place] [address] 13 Jul, 2018 [place] [address] [facility] [id number] [address] [place] [address] 12 Jul, 2018 Panic disorder with agorapho syd F40.01 ; Anxiety disorder, unspecified F41.9 ; Other chronic pain G89.29 and Daytime somnolence R40.0 [place] [address] [id number] [address] [place] [address] Jul, [facility] [place] [address] [id number] [address] [place] [address] Jun, [facility] [place] [address] [facility] [id number] [address] [place] [address] 08 Jun, 2018 Hip pain, left M25.552 ; Leg pain, left M79.605 ; Lumbar pain M54.5 and Mood disorder F39 [facility] [place] [address] [id number] [address] [place] [address] 08 Jun, 2018 Diabetes E11.9 ; Other chron ic pain G89.29 and Anxiety disorder, unspecified F41.9 [facility] [place] [address] [facility] [id number] [address] [place] [address] 07 Jun, 2018 Hip pain, left M25.552 ; Leg pain, left M79.605 ; Lumbar pain M54.5 and Mood disorder F39 [facility] [place] [address] [facility] [id number] [address] [place] [address] May, Diabetes E11.9 [facility] [place] [address] [facility] [id number] [address] [place] [address] May, [facility] [place] [address] [facility] [id number] [address] [place] [address] May, Other chronic pain G89.29 an d Anxiety disorder, unspecified F41.9 [facility] [place] [address] [facility] [id number] [address] [place] [address] May, [facility] [place] [address] [facility] [id number] [address] [place] [address] May, [facility] [place] [address] [facility] [id number] [address] [place] [address] May, Tinnitus of right ear H93.11 [facility] [place] [address] [facility] [id number] [address] [place] [address] 03 Eulalio, 2019 Diabetes E11.9 ; Tinnitus of both ears H93.13 ; Contracture, left hand M24.542 and Family history of rheumatic joint disease Z82.69 [place] [address] [id number] [address] [place] [address] Apr, [facility] [place] [address] [id number] [address] [place] [address] Apr, [place] [address] [id number] [address] [place] [address] Apr, Tinnitus of right ear H93.11 and Hypertension I10 [place] [address] [id number] [address] [place] [address] Apr, Other chronic pain G89.29 ; Daytime somnolence R40.0 and Anxiety disorder, unspecified F41.9 [place] [address] [id number] [address] [place] [address] Apr, [place] [address] [id number] [address] [place] [address] Apr, [place] [address] [id number] [address] [place] [address] Mar, Tinnitus of right ear H93.11 [place] [address] [id number] [address] [place] [address] Mar, [place] [address] [id number] [address] [place] [address] Mar, Anxiety disorder, unspecifie d F41.9 ; Other chronic pain G89.29 and Daytime somnolence R40.0 [place] [address] [id number] [address] [place] [address] Mar, Irritable bowel syndrome wit h both constipation and diarrhea K58.2 [place] [address] [id number] [address] [place] [address] Mar, [place] [address] [facility] [id number] [address] [place] [address] Mar, Hypertension I10 [facility] [place] [address] [facility] [id number] [address] [place] [address] Mar, [facility] [place] [address] [facility] [id number] [address] [place] [address] Mar, [facility] [place] [address] [facility] [id number] [address] [place] [address] Mar, [facility] [place] [address] [facility] [id number] [address] [place] [address] Mar, Diabetes E11.9 [facility] [place] [address] [facility] [id number] [address] [place] [address] Mar, [facility] [place] [address] [facility] [id number] [address] [place] [address] Feb, Daytime somnolence R40.0 and Anxiety disorder, unspecified F41.9 [facility] [place] [address] [facility] [id number] [address] [place] [address] Feb, [facility] [place] [address] [facility] [id number] [address] [place] [address] Feb, [facility] [place] [address] [facility] [id number] [address] [place] [address] Feb, Tremors of nervous system R2 5.1 and Acute swimmer''s ear of right side H60.331 [facility] [place] [address] [facility] [id number] [address] [place] [address] Feb, Cerebrovascular accident (CV A) due to occlusion of right cerebellar artery I63.541 and Hypertension I10 [facility] [place] [address] [facility] [id number] [address] [place] [address] Feb, [facility] [place] [address] [facility] [id number] [address] [place] [address] Feb, Cerebrovascular accident (CV A) due to occlusion of right cerebellar artery I63.541 [facility] [address] [place] [address] [id number] [place] [id number] Feb, Hyponatremia E87.1 [place] [address] [address] Feb, [place] [address] [address] Feb, Daytime somnolence R40.0 [place] [address] [address] Feb, [place] [address] [address] Jan, [place] [address] [address] Jan, [place] [address] [address] Jan, Chronic obstructive pulmonar y disease, unspecified J44.9 and Anxiety disorder, unspecified F41.9 [place] [address] [address] Jan, Hypertension I10 ; Fibromyal medhat M79.7 and Lumbago with sciatica, left side M54.42 [place] [address] [address] 26 Jan, 2018 [place] [address] [address] 20 Jan, 2018 Cerebrovascular accident (CV A) due to occlusion of right cerebellar artery I63.541 [place] [address] [place] [id number] [address] [place] [address] 19 Jan, 2018 [place] [address] [address] 13 Jan, 2018 Arthritis M19.90 [place] [address] [place] [id number] [address] [place] [address] 07 Jan, 2018 [place] [address] [address] Jan, Abnormal mammogram of right breast R92.8 [place] [address] [id number] [address] [place] [address] Dec, Daytime somnolence R40.0 and Right otitis media with effusion H65.91 [facility] [place] [address] [id number] [address] [place] [address] Dec, [place] [address] [id number] [address] [place] [address] Dec, Cerebrovascular accident (CV A) due to occlusion of right cerebellar artery I63.541 [place] [address] [id number] [address] [place] [address] Dec, [place] [address] [id number] [address] [place] [address] Dec, [place] [address] [facility] [id number] [address] [place] [address] Nov, Bipolar 1 disorder, depresse d, partial remission F31.75 and Panic disorder with agoraphobia F40.01 [place] [address] [facility] [id number] [address] [place] [address] Nov, Panlobular emphysema J43.1 [place] [address] [facility] [id number] [address] [place] [address] Nov, Cerebrovascular accident (CV A) due to occlusion of right cerebellar artery I63.541 and Acute non-recurrent maxillary sinusitis J01.00 [place] [address] [id number] [address] [place] [address] Nov, Panlobular emphysema J43.1 [facility] [place] [address] [id number] [address] [place] [address] Nov, [facility] [place] [address] [id number] [address] [place] [address] Nov, [place] [address] [id number] [address] [place] [address] Nov, [facility] [place] [address] [id number] [address] [place] [address] Nov, [facility] [place] [address] [id number] [address] [place] [address] Nov, [facility] [place] [address] [facility] [id number] [address] [place] [address] Nov, [facility] [place] [address] [facility] [id number] [address] [place] [address] Nov, [facility] [place] [address] [facility] [id number] [address] [place] [address] Nov, Mild persistent asthma witho ut complication J45.30 and Irritable bowel syndrome with both constipation and diarrhea K58.2 [facility] [place] [address] [facility] [id number] [address] [place] [address] Nov, [facility] [place] [address] [facility] [id number] [address] [place] [address] Oct, [facility] [place] [address] [facility] [id number] [address] [place] [address] Oct, [facility] [place] [address] [facility] [id number] [address] [place] [address] Oct, Type 2 diabetes mellitus wit h diabetic neuropathy, unspecified whether intermodal customer service insulin use E11.40 ; Diabetes E11.9 ; Slow transit constipation K59.01 ; Edema of both legs R60.0 and Dysfunction of right eustachian tube H69.81 [facility] [place] [address] [facility] [id number] [address] [place] [address] Oct, Frequent headaches R51 [facility] [place] [address] [facility] [id number] [address] [place] [address] Oct, [facility] [place] [address] [facility] [id number] [address] [place] [address] Oct, [facility] [place] [address] [facility] [id number] [address] [place] [address] Oct, [facility] [place] [address] [id number] [address] [place] [address] Oct, [facility] [place] [address] [facility] [id number] [address] [place] [address] Oct, [facility] [place] [address] [facility] [id number] [address] [place] [address] Oct, [facility] [place] [address] [facility] [id number] [address] [place] [address] Oct, [facility] [place] [address] [facility] [id number] [address] [place] [address] Oct, [facility] [place] [address] [facility] [id number] [address] [place] [address] September, Frequent headaches R51 [facility] [place] [address] [place] [id number] [address] [place] [address] September, Bilateral otitis media with effusion H65.93 ; Dizziness R42 and Essential tremor G25.0 [facility] [place] [address] [facility] [id number] [address] [place] [address] September, Chronic obstructive pulmonar y disease, unspecified COPD type J44.9 [facility] [place] [address] [place] [id number] [address] [place] [address] September, Chronic obstructive pulmonar y disease, unspecified COPD type J44.9 [facility] [place] [address] [facility] [id number] [address] [place] [address] September, Migraine without aura and wi thout status migrainosus, not intractable G43.009 [facility] [place] [address] [facility] [id number] [address] [place] [address] September, [facility] [place] [address] [facility] [id number] [address] [place] [address] September, [facility] [place] [address] [place] [id number] [address] [place] [address] September, [place] [address] [facility] [id number] [address] [place] [address] September, Frequent headaches R51 [place] [address] [facility] [id number] [address] [place] [address] Aug, [place] [address] [place] [id number] [address] [place] [address] Aug, Breast mass, right N63.10 [place] [address] [facility] [id number] [address] [place] [address] Aug, Breast lump N63.0 [place] [address] [address] [place] [id number] [address] [place] [id number] Aug, [place] [address] [address] [place] [id number] [address] [place] [id number] Aug, Bipolar affective disorder, remission status unspecified F31.9 and Diabetes E11.9 [place] [address] [address] [place] [id number] [address] [place] [id number] Aug, Diabetes E11.9 ; Schizoaffec tive disorder, bipolar type F25.0 ; Pharyngitis due to other organism J02.8 ; Panlobular emphysema J43.1 and Irritable bowel syndrome with both constipation and diarrhea K58.2 [place] [address] [address] [place] [id number] [address] [place] [phone] Aug, Abnormal mammogram R92.8 [place] [address] [facility] [id number] [address] [place] [id number] Aug, [place] [address] [place] [id number] [place] [id number] Aug, Bipolar 1 disorder, depresse d, moderate F31.32 ; Panic disorder with agoraphobia F40.01 and Chronic post-traumatic stress disorder (PTSD) F43.12 [place] [address] [address] [place] [id number] [address] [place] [id number] Aug, [facility], [place] [address] [id number] [address] [place] [id number] Aug, [facility] [place], [facility] [address] [id number] [address] [place] [phone] Aug, [facility] [place], [facility] [address] [facility] [id number] [address] [place] [id number] Jul, [facility], [place], [facility] [address] [id number] [address] [place] [id number] Jul, Mild persistent asthma witho ut complication J45.30 [facility] [place], [facility] [address] [id number] [address] [place] [id number] 19 Jul, 2017 Mild persistent asthma witho ut complication J45.30 [facility] [place], [facility] [address] [facility] [id number] [address] [place] [id number] 15 Jul, 2017 Bipolar affective disorder, remission status unspecified F31.9 ; Diabetes E11.9 and Irritable bowel syndrome with constipation K58.1 [facility] [place] [address] [id number] [address] [place] [id number] Jul, [facility] [place] [address] [facility] [id number] [address] [place] [phone] Jul, [facility] [place] [address] [facility] [id number] [address] [place] [phone] Jul, Frequent headaches R51 [facility] [place] [address] [id number] [address] [place] [id number] 07 Jul, 2017 [facility] [place] [address] [id number] [address] [place] [phone] Jul, [facility] [place] [address] [id number] [address] [place] [id number] Jul, [facility] [place] [address] [facility] [id number] [address] [place] [address] Jul, Frequent headaches R51 ; Fib rocystic disease of left breast N60.12 ; Fibrocystic disease of right breast N60.11 and Diabetes E11.9 [facility] [place] [address] [facility] [id number] [address] [place] [id number] Jul, [facility] [place] [address] [facility] [id number] [address] [place] [id number] 02 Jul, 2017 [facility] [place] [address] [facility] [id number] [address] [place] [id number] 21 Jun, 2017 Exudative tonsillitis J03.90 [facility] [place] [address] [facility] [id number] [address] [place] [id number] 20 Jun, 2017 [facility] [place] [address] [facility] [id number] [address] [place] [id number] 19 Jun, 2017 [facility] [place] [address] [facility] [id number] [place] [id number] 15 Jun, 2017 Mild persistent asthma witho ut complication J45.30 ; Chronic obstructive pulmonary disease, unspecified COPD type J44.9 and Exudative tonsillitis J03.90 [facility] [place] [address] [facility] [id number] [address] [place] [phone] 13 Jun, 2017 Encounter for immunization Z 23 [facility] [place] [address] [facility] [id number] [address] [place] [phone] 12 Jun, 2017 [facility] [place] [address] [place] [id number] [address] [place] [phone] 12 Jun, 2017 [facility] [place] [address] [facility] [id number] [address] [place] [id number] 09 Jun, 2017 [facility] [address] [facility] [id number] [address] [place] [id number] 06 Jun, 2017 Tonsillitis J03.90 [facility] [place] [address] [facility] [id number] [address] [place] [id number] 05 Jun, 2017 [facility] [place] [address] [place] [id number] [address] [place] [id number] 03 Jun, 2017 Acute non-recurrent maxillar y sinusitis J01.00 [facility] [place] [address] [facility] [id number] [address] [place] [id number] 02 Jun, 2017 [facility] [place] [address] [facility] [id number] [address] [place] [id number] May, [facility] [place] [address] [facility] [id number] [address] [place] [phone] May, [facility] [place] [address] [facility] [id number] [address] [place] [id number] May, GERD (gastroesophageal reflu x disease) K21.9 [facility] [place] [address] [facility] [id number] [address] [place] [phone] May, Migraine without aura and wi thout status migrainosus, not intractable G43.009 [facility] [place] [address] [facility] [id number] [address] [place] [phone] May, [facility] [place] [address] [facility] [id number] [address] [place] [address] May, [facility] [place] [address] [facility] [id number] [address] [place] [address] May, Panlobular emphysema J43.1 a nd Acute non-recurrent maxillary sinusitis J01.00 [place] [address] [place] [id number] [address] [place] [address] May, Bipolar 1 disorder, depresse d, moderate F31.32 ; Panic disorder with agoraphobia F40.01 and Akathisia G25.71 [facility] [place] [address] [facility] [id number] [address] [place] [address] Apr, [facility] [place] [address] [facility] [id number] [address] [place] [address] Apr, [facility] [place] [address] [facility] [id number] [address] [place] [address] Apr, Acute non-recurrent maxillar y sinusitis J01.00 [facility] [place] [address] [place] [id number] [address] [place] [id number] 07 Apr, 2017 Panlobular emphysema J43.1 [facility] [place] [address] [id number] [address] [place] [id number] 04 Apr, 2017 [facility] [address] [facility] [id number] [address] [place] [address] Apr, Exudative tonsillitis J03.90 and Sore throat J02.9 [facility] [place] [address] [id number] [address] [place] [id number] 17 Mar, 2017 [facility] [place] [address] [facility] [id number] [address] [place] [id number] 15 Mar, 2017 Acute non-recurrent maxillar y sinusitis J01.00 [facility] [place] [address] [facility] [id number] [address] [place] [id number] Mar, [facility] [place] [address] [facility] [id number] [address] [place] [id number] Mar, Panlobular emphysema J43.1 a nd Diabetes E11.9 [facility] [place] [address] [facility] [id number] [address] [place] [id number] 06 Mar, 2017 [facility] [address] [facility] [id number] [address] [place] [id number] 24 Feb, 2017 Wheezing R06.2 and Acute rec urrent pansinusitis J01.41 [facility] [place] [address] [facility] [id number] [address] [place] [address] Feb, [facility] [place] [address] [facility] [id number] [address] [place] [id number] Feb, Acute non-recurrent maxillar y sinusitis J01.00 [facility] [place] [address] [facility] [id number] [address] [place] [address] Feb, Chronic obstructive pulmonar y disease, unspecified J44.9 [facility] [place] [address] [facility] [id number] [address] [place] [id number] Feb, Hypoxemia R09.02 and Chronic obstructive pulmonary disease, unspecified J44.9 [place] [address] [facility] [id number] [address] [place] [id number] 28 Jan, 2017 Bipolar 1 disorder, depresse d, moderate F31.32 ; Panic disorder with agoraphobia F40.01 ; Chronic post-traumatic stress disorder (PTSD) F43.12 ; Diabetes E11.9 and Moderate persistent asthma without complication J45.40 [place] [address] [facility] [id number] [address] [place] [address] Jan, [place] [address] [facility] [id number] [address] [place] [id number] Jan, Acute non-recurrent maxillar y sinusitis J01.00 [place] [address] [place] [id number] [address] [place] [address] Jan, [place] [address] [place] [id number] [address] [place] [id number] Jan, [place] [address] [facility] [id number] [address] [place] [address] Jan, Moderate persistent asthma w [facility] complication J45.40 and Hypoxemia R09.02 [place] [address] [facility] [id number] [address] [place] [address] Jan, Moderate persistent asthma w [facility] complication J45.40 and Hypoxemia R09.02 [place] [address] [facility] [id number] [address] [place] [address] Jan, [place] [address] [facility] [id number] [address] [place] [address] Dec, Acute non-recurrent maxillar y sinusitis J01.00 [place] [address] [facility] [id number] [address] [place] [address] Dec, Chronic obstructive pulmonar y disease, unspecified J44.9 [place] [address] [place] [id number] [address] [place] [address] Dec, [facility] [place] [address] [facility] [id number] [address] [place] [address] Dec, Mild persistent asthma witho ut complication J45.30 and Other chronic pain G89.29 [facility] [place] [address] [id number] [address] [place] [phone] Nov, [facility] [place] [address] [facility] [id number] [address] [place] [address] Nov, Acute non-recurrent maxillar y sinusitis J01.00 [facility] [place] [address] [facility] [id number] [address] [place] [address] Nov, [place] [address] [facility] [id number] [address] [place] [address] Nov, [facility] [place] [address] [facility] [id number] [address] [place] [id number] Oct, [facility] [place] [address] [facility] [id number] [address] [place] [id number] Oct, Bipolar 1 disorder, depresse d, partial remission F31.75 ; Panic disorder with agoraphobia F40.01 and Chronic post-traumatic stress disorder (PTSD) F43.12 [facility] [place] [address] [facility] [id number] [address] [place] [id number] Oct, Acute non-recurrent maxillar y sinusitis J01.00 [facility] [place] [address] [facility] [id number] [address] [place] [address] Oct, [facility] [place] [address] [facility] [id number] [address] [place] [address] Oct, Diabetes E11.9 [facility] [place] [address] [facility] [id number] [address] [place] [address] September, Diabetes E11.9 [facility] [place] [address] [facility] [id number] [address] [place] [address] September, Diabetes E11.9 and Sinus tac hycardia R00.0 [place] [address] [id number] [address] [place] [address] September, [facility] [place] [address] [facility] [id number] [address] [place] [address] September, [facility] [place] [address] [facility] [id number] [address] [place] [address] Aug, Diabetes E11.9 and Lumbago w ith sciatica, right side M54.41 [facility] [place] [address] [facility] [id number] [address] [place] [id number] Aug, [facility] [place] [address] [facility] [id number] [address] [place] [address] Jul, Bipolar 1 disorder, depresse d, moderate F31.32 ; Panic disorder with agoraphobia F40.01 and Chronic post-traumatic stress disorder (PTSD) F43.12 [facility] [place] [address] [facility] [id number] [address] [place] [address] Jul, Sore throat J02.9 [facility] [place] [address] [facility] [id number] [address] [place] [id number] Jul, [facility] [place] [address] [facility] [id number] [address] [place] [address] Jul, [facility] [place] [address] [facility] [id number] [address] [place] [address] Jul, [facility] [place] [address] [facility] [id number] [address] [place] [id number] Jul, [facility] [place] [address] [facility] [id number] [address] [place] [id number] Jul, Sore throat J02.9 and Pharyn gitis, unspecified etiology J02.9 [facility] [place] [address] [id number] [address] [place] [id number] Jun, [facility] [place] [address] [facility] [id number] [address] [place] [id number] Jun, Diabetes E11.9 [facility] [place] [address] [id number] [address] [place] [address] Jun, [facility] [place] [address] [id number] [address] [place] [address] Jun, [facility] [place] [address] [id number] [address] [place] [phone] Jun, [facility] [place] [address] [id number] [address] [place] [id number] Jun, [facility] [place] [address] [id number] [address] [place] [id number] Jun, [facility] [place] [address] [id number] [address] [place] [id number] Jun, [facility] [place] [address] [id number] [address] [place] [id number] Jun, [facility] [place] [address] [id number] [address] [place] [address] Jun, [facility] [place] [address] [id number] [address] [place] [address] May, Diabetes E11.9 ; Other chron ic pain G89.29 ; Acute recurrent maxillary sinusitis J01.01 ; Bipolar I disorder with depression F31.9 and Anxiety disorder, unspecified F41.9 [facility] [place] [address] [id number] [address] [place] [address] May, [facility] [place] [address] [id number] [address] [place] [address] May, Diabetes E11.9 ; Bipolar I d isorder with depression F31.9 ; Anxiety disorder, unspecified F41.9 ; Other chronic pain G89.29 and Acute recurrent maxillary sinusitis J01.01 [facility] [place] [address] [id number] [address] [place] [id number] May, [facility] [place] [address] [id number] [address] [place] [address] May, Attention deficit hyperactiv ity disorder (ADHD), predominantly inattentive type F90.0 [place] [address] [id number] [address] [place] [address] May, [place] [address] [id number] [address] [place] [address] Apr, Attention deficit hyperactiv ity disorder (ADHD), predominantly inattentive type F90.0 and Non-seasonal allergic rhinitis due to other allergic trigger J30.89 [place] [address] [id number] [address] [place] [address] Apr, Bipolar 1 disorder, depresse d, moderate F31.32 ; Panic disorder with agoraphobia F40.01 and Chronic post-traumatic stress disorder (PTSD) F43.12 [place] [address] [place] [id number] [address] [place] [address] Apr, Dental examination Z01.20 [place] [address] [id number] [address] [place] [address] Mar, [place] [address] [facility] [id number] [address] [place] [address] Mar, [place] [address] [facility] [id number] [address] [place] [address] Mar, Bipolar I disorder with depr ession F31.9 and Anxiety disorder, unspecified F41.9 [place] [address] [facility] [id number] [address] [place] [address] 08 Mar, 2016 Panic disorder with agorapho syd F40.01 ; Bipolar 1 disorder, depressed, moderate F31.32 and Chronic post-traumatic stress disorder (PTSD) F43.12 [place] [address] [facility] [id number] [address] [place] [address] 04 Mar, 2016 [place] [address] [facility] [id number] [address] [place] [address] Mar, Dental caries K02.9 [facility] [place] [address] [facility] [id number] [address] [place] [address] 24 Feb, 2016 Lumbago with sciatica, left side M54.42 ; Lumbago with sciatica, right side M54.41 and Other chronic pain G89.29 [facility] [place] [address] [facility] [id number] [address] [place] [id number] 17 Feb, 2016 [facility] [place] [address] [place] [id number] [place] [phone] 14 Feb, 2016 [facility] [place] [address] [id number] 13 Feb, 2016 Bipolar I disorder with depr ession F31.9 ; PTSD (post-traumatic stress disorder) F43.10 and Mood disorder F39 [place] [address] [id number] 13 Feb, 2016 [place] [address] [address] Feb, Dental examination Z01.20 [place] [address] [id number] 07 Feb, 2016 [facility] [address] [place] [id number] [place] [id number] 03 Feb, 2016 Acute bronchitis, unspecifie d organism J20.9 [facility] [place] [address] [place] [id number] [place] [id number] 26 Jan, 2016 Mood disorder F39 ; Migraine without aura and without status migrainosus, not intractable G43.009 ; Irritable bowel syndrome, unspecified type K58.9 ; Diabetes E11.9 and Encounter for immunization Z23 [place] [address] [place] [id number] [place] [id number] 15 Jan, 2016 [place] [address] [place] [id number] [place] [id number] 06 Jan, 2016 [facility] [place] [address] [id number] Jan, [facility] [place] [address] [facility] [id number] [address] [place] [phone] Jan, [facility] [place] [address] [facility] [id number] [address] [place] [id number] Jan, [facility] [place] [address] [facility] [id number] [address] [place] [id number] Dec, Bipolar I disorder with depr ession F31.9 ; PTSD (post-traumatic stress disorder) F43.10 and Panic disorder with agoraphobia F40.01 [facility] [place] [address] [facility] [id number] [address] [place] [id number] Dec, Chronic obstructive pulmonar y disease, unspecified COPD type J44.9 ; Tremor R25.1 and Anxiety F41.9 [facility] [place] [address] [facility] [id number] [address] [place] [id number] Dec, [facility] [place] [address] [facility] [id number] [address] [place] [id number] Nov, Tremors of nervous system R2 5.1 and Cramping of feet R25.2 [facility] [place] [address] [facility] [id number] [address] [place] [id number] Nov, [facility] [place] [address] [facility] [id number] [address] [place] [id number] Nov, [facility] [place] [address] [facility] [id number] [address] [place] [id number] Oct, Chronic obstructive pulmonar y disease, unspecified J44.9 [facility] [place] [address] [facility] [id number] [address] [place] [id number] Oct, [facility] [place] [address] [facility] [id number] [address] [place] [address] Oct, Tremor R25.1 [facility] [place] [address] [facility] [id number] [address] [place] [address] Oct, Bipolar I disorder with depr ession F31.9 ; Diabetes E11.9 ; PTSD (post-traumatic stress disorder) F43.10 and Panic disorder with agoraphobia F40.01 [place] [address] [facility] [id number] [address] [place] [address] Oct, Mood disorder F39 [place] [address] [facility] [id number] [address] [place] [address] September, [place] [address] [address] [place] [id number] [address] [place] [address] September, Diabetes E11.9 ; Bipolar I d isorder with depression F31.9 ; PTSD (post-traumatic stress disorder) F43.10 and Panic disorder with agoraphobia F40.01 [place] [address] [facility] [id number] [address] [place] [address] September, Mood disorder F39 ; Schizoaf fective disorder, unspecified type F25.9 ; Arthritis M19.90 ; Tremor R25.1 ; Acute non-recurrent frontal sinusitis J01.10 and Blood in stool K92.1 [place] [address] [facility] [id number] [address] [place] [address] September, [place] [address] [facility] [id number] [address] [place] [address] September, Chronic obstructive pulmonar y disease, unspecified J44.9 [place] [address] [facility] [id number] [address] [place] [address] September, Diabetes E11.9 [place] [address] [facility] [id number] [address] [place] [address] Aug, Other bipolar disorder F31.8 9 and Anxiety disorder, unspecified F41.9 [place] [address] [facility] [id number] [address] [place] [address] Aug, [place] [address] [facility] [id number] [address] [place] [address] Aug, Diabetes E11.9 [place] [address] [id number] [address] [place] [address] 18 Aug, 2015 [facility] [place] [address] [id number] [address] [place] [address] 14 Aug, 2015 Diabetes E11.9 ; Fatigue R53 .83 and Dizziness R42 [facility] [place] [address] [id number] [address] [place] [address] Aug, Other bipolar disorder F31.8 9 [facility] [place] [address] [id number] [address] [place] [address] 07 Aug, 2015 Generalized anxiety disorder F41.1 [facility] [place] [address] [id number] [address] [place] [address] 07 Aug, 2015 Other bipolar disorder F31.8 9 and Anxiety disorder, unspecified F41.9 [facility] [place] [address] [facility] [id number] [address] [place] [address] Aug, [facility] [place] [address] [id number] [address] [place] [address] 29 Jul, 2015 [facility] [place] [address] [id number] [address] [place] [address] 24 Jul, 2015 [facility] [place] [address] [facility] [id number] [address] [place] [address] 23 Jul, 2015 Bronchitis J40 [facility] [place] [address] [facility] [id number] [address] [place] [address] Jul, Anxiety disorder F41.9 [facility] [place] [address] [id number] [address] [place] [address] Jul, Other bipolar disorder F31.8 9 and Anxiety disorder, unspecified F41.9 [facility] [place] [address] [facility] [id number] [address] [place] [address] 18 Jul, 2015 Other bipolar disorder F31.8 9 and Fibromyalgia M79.7 [facility] [place] [address] [facility] [id number] [address] [place] [address] 10 Jul, 2015 [facility] [place] [address] [place] [id number] [address] [place] [address] Jul, [facility] [place] [address] [address] Jul, [facility] [place] [address] [place] [id number] [place] [address] Jul, Other bipolar disorder F31.8 9 and Anxiety disorder, unspecified F41.9 [facility] [place] [address] [address] Jun, GERD (gastroesophageal reflu x disease) K21.9 [facility] [place] [address] [address] Jun, [facility] [place] [address] [address] May, [facility] [place] [address] [address] May, Diabetes E11.9 ; Back pain M 54.9 ; GERD (gastroesophageal reflux disease) K21.9 ; Hypertension I10 and Peripheral neuropathy G62.9 [facility] [place] [address] [address] Mar, [facility] [place] [address] [address] Mar, [facility] [place] [address] [address] Mar, Acute sinusitis J01.90 and O titis media, left H66.92 [facility] [place] [address] [address] Feb, [facility] [place] [address] [address] Feb, [facility] [place] [address] [address] Feb, [facility] [place] [address] [facility] [id number] [address] [place] [address] Feb, [facility] [place] [address] [place] [id number] [place] [address] Jan, [facility] [place] [address] [facility] [id number] [address] [place] [address] Jan, Diabetes 250.00 and Back higinio n 724.5 [facility] [place] [address] [place] [id number] [address] [place] [address] Jan, [facility] [place] [address] [place] [id number] [address] [place] [address] Dec, Diabetes 250.00 ; Benign ess ential hypertension 401.1 and Allergic rhinitis 477.9 [facility] [place] [address] [place] [id number] [address] [place] [address] Dec, [facility] [place] [address] [place] [id number] [address] [place] [address] Dec, [facility] [place] [address] [place] [id number] [address] [place] [address] Dec, Psychosis 298.9 [facility] [place] [address] [place] [id number] [place] [address] Dec, Medication side effect 995.2 0 and Generalized anxiety disorder 300.02 [facility] [place] [address] [place] [id number] [address] [place] [address] Dec, Acquired cognitive dysfuncti on 294.9 [facility] [place] [address] [place] [id number] [address] [place] [address] Dec, [facility] [place] [address] [place] [id number] [place] [address] Dec, Unspecified myalgia and myos itis 729.1 and Generalized anxiety disorder 300.02 [facility] [place] [address] [place] [id number] [address] [place] [address] Nov, [facility] [place] [address] [id number] [address] [place] [address] Nov, [facility] [place] [address] [id number] [address] [place] [address] Nov, [facility] [place] [address] [facility] [id number] [address] [place] [address] Nov, Upper respiratory infection 465.9 and Chronic airway obstruction, not elsewhere classified 496 [facility] [place] [address] [id number] [address] [place] [address] Nov, Hyponatremia 276.1 [facility] [place] [address] [id number] [address] [place] [address] Oct, [facility] [place] [address] [facility] [id number] [address] [place] [address] Oct, [facility] [place] [address] [facility] [id number] [address] [place] [address] Oct, [facility] [place] [address] [id number] [address] [place] [address] Oct, [facility] [place] [address] [facility] [id number] [address] [place] [address] Oct, Hyponatremia 276.1 [facility] [place] [address] [facility] [id number] [address] [place] [address] Oct, [facility] [place] [address] [facility] [id number] [address] [place] [address] Oct, [facility] [place] [address] [facility] [id number] [address] [place] [address] Oct, Generalized anxiety disorder 300.02 [facility] [place] [address] [facility] [id number] [address] [place] [address] Oct, Generalized anxiety disorder 300.02 and Diabetes 250.00 [facility] [place] [address] [facility] [id number] [address] [place] [address] Aug, [facility] [address] [id number] [address] [place] [address], [place] [address] 13 Aug, 2014 [facility] [address] [id number] [address] [place] [address], [place] [address] Jul, [facility] [address] [id number] [address] [place] [address], [place] [address] Jul, [facility] [address] [id number] [address] [place] [address], [place] [address] Jun, [facility] [address] [id number] [address] [place] [address], [place] [address] Jun, [facility] [address] [id number] [address] [place] [address], [place] [address] Jun, [facility] [address] [id number] [address] [place] [address], [place] [address] Jun, [facility] [address] [id number] [address] [place] [address], [place] [address] Jun, [facility] [address] [id number] [address] [place] [address], [place] [address] May, [facility] [address] [id number] [address] [place] [address], [place] [address] May, [facility] [address] [id number] [address] [place] [address], [place] [address] Apr, [facility] [address] [id number] [address] [place] [address], [place] [address] Apr, [facility] [address] [id number] [address] [place] [address], [place] [address] 18 Apr, 2013 [facility] [address] [id number] [address] [place] [address], [place] [address] Apr, [facility] [address] [id number] [address] [place] [address], [place] [address] 17 Apr, 2013 [facility] [address] [id number] [address] [place] [address], [place] [address] Apr, [facility] [address] [id number] [address] [place] [address], [place] [address] Apr, [facility] [address] [id number] [address] [place] [address], [place] [address] Apr, [facility] [address] [id number] [address] [place] [address], [place] [address] Feb, [facility] [address] [id number] [address] [place] [address], [place] [address] Feb, [facility] [address] [id number] [address] [place] [address], [place] [address] Jan, [facility] [address] [id number] [address] [place] [address], [place] [address] Jan, [facility] [address] [id number] [address] [place] [address], [place] [address] Dec, [facility] [address] [id number] [address] [place] [address], [place] [address] Dec, [facility] [address] [id number] [address] [place] [address], [place] [address] Dec, [facility] [address] [id number] [address] [place] [address], [place] [address] Nov, [facility] [address] [id number] [address] [place] [address], [place] [address] Nov, [facility] [address] [id number] [address] [place] [address] Nov, [facility] [address] [id number] [address] [place] [address], [place] [address] Oct, [facility] [address] [id number] [address] [place] [address], [place] [address] Oct, [facility] [address] [id number] [address] [place] [address], [place] [address] Oct, [facility] [address] [id number] [address] [place] [address], [place] [address] September, [facility] [address] [id number] [address] [place] [address], [place] [address] September, [facility] [address] [id number] [address] [place] [address], [place] [address] September, [facility] [address] [id number] [address] [place] [address], [place] [address] Aug, [facility] [address] [id number] [address] [place] [address], [place] [address] Aug, [facility] [address] [id number] [address] [place] [address], [place] [address] Aug, [facility] [address] [id number] [address] [place] [address], [place] [address] 16 Aug, 2011 [facility] [address] [id number] [address] [place] [address], [place] [address] Jul, [facility] [address] [id number] [address] [place] [address], [place] [address] Jun, [facility] [address] [id number] [address] [place] [address], [place] [address] 14 Jun, 2011 [facility] [address] [id number] [address] [place] [address], [place] [address] 13 Jun, 2011 [facility] [address] [id number] [address] [place] [address], [place] [address] 07 Jun, 2011 [facility] [address] [id number] [address] [place] [address], [place] [address] 03 Jun, 2011 [facility] [address] [id number] [address] [place] [address], [place] [address] 13 May, 2011 [facility] [address] [id number] [address] [place] [address], [place] [address] 10 May, 2011 [facility] [address] [id number] [address] [place] [address], [place] [address] May, [facility] [address] [id number] [address] [place] [address], [place] [address] May, [facility] [address] [id number] [address] [place] [address], [place] [address] Apr, [facility] [address] [id number] [address] [place] [address], [place] [address] Apr, [facility] [address] [id number] [address] [place] [address], [place] [address] Apr, [facility] [address] [id number] [address] [place] [address], [place] [address] Mar, [facility] [address] [id number] [address] [place] [address], [place] [address] Mar, [facility] [address] [id number] [address] [place] [address], [place] [address] Mar, [facility] [address] [id number] [address] [place] [address], [place] [address] Feb, [facility] [address] [id number] [address] [place] [address], [place] [address] Feb, [facility] [address] [id number] [address] [place] [address] Feb, [facility] [address] [id number] [address] [place] [address] Nov, [facility] [address] [id number] [address] [place] [address] September, [facility] [address] [id number] [address] [place] [address], [place] [address] Aug, [facility] [address] [id number] [address] [place] [address], [place] [address] 14 Jul, 2010 [facility] [address] [id number] [address] [place] [address] May, [facility] [address] [id number] [address] [place] [address] Apr, [facility] [place] [address] [facility] [id number] [address] [place] [address] Apr, [facility] [place] [address] [facility] [id number] [address] [place] [address] Apr, [facility] [place] [address] [facility] [id number] [address] [place] [address] Apr, [facility] [place] [address] [facility] [id number] [address] [place] [address] Apr, IMMUNIZATIONS No Known Immunizations SOCIAL HISTORY Never Assessed REASON FOR VISIT [place] [place] VITAL SIGNS MEDICATIONS Unknown [...]
--- OUTSIDE RECORDS SUMMARY | 2019-07-17 10:44 | XMS REPORT ---
Author Author Sujey Renteria Doctor Organization [facility] Address Unknown Phone Unavailable Care Team Providers Care Utility Locate Technician Name Role Phone Migration, Doctor Unavailable Unavailable PROBLEMS Type Condition ICD9-CM Code HTZ97-VN Code Onset Dates Condition S tatus SNOMED Code Problem Other chronic pain G89.29 Active 8 3027760 Problem Chronic post-traumatic stress disorder (PTSD) F43. 12 Active 275619513 Problem Bipolar 1 disorder, depressed, moderate F31.32 Active 42470160 Problem Attention deficit hyperactiv ity disorder (ADHD), predominantly inattentive type F90.0 Active 74556656 Problem Bipolar affective disorder, remission status unspecified F31.9 Active 44351101 Problem Acute non-recurrent maxillary sinusitis J01.00 Active 10002244 Problem Bipolar I disorder with depression F31.9 Active 75604844 Problem Essential tremor G25.0 Active 609 375111 Problem Chronic obstructive pulmonary disease, unspecified J44.9 Active 19797136 Problem Schizoaffective disorder, bipolar type F25.0 Active 21218950 Problem Panic disorder with agoraphobia F40.01 Active 77577178 Problem Lumbago with sciatica, right side M54.41 Active 765386450 Problem Lumbago with sciatica, left side M54.42 Active 743931384 Problem Akathisia G25.71 Active 219723475 Problem Panlobular emphysema J43.1 Active 2302783 Problem Fibrocystic disease of left breast N60.12 Active 05171230 Problem Hypertension I10 Active 2735911 3 Problem Migraine without aura and without status migrain osus, not intractable G43.009 Active 848047402 Problem Diabetes E11.9 Active 36047404 Problem Arthritis M19.90 Active 6219465 Problem Anxiety disorder, unspecified F41.9 Active 579826671 Problem Fibrocystic disease of right breast N60.11 Active 00245270 Problem Back pain M54.9 Active 212673313 Problem Irritable bowel syndrome with both constipation and diarrh ea K58.2 Active 67933288 Problem Fibromyalgia M79.7 Active 3581431 7 Problem Irritable bowel syndrome with constipation K58.1 Active 067207375 Problem Other bipolar disorder F31.89 Active 87738032 Problem Slow transit constipation K59.01 Acti ve 66782209 Problem Daytime somnolence R40.0 Active 1 60481234234 Problem Abnormal mammogram of right breast R92.8 Active 339357036 Problem Diffuse cystic mastopathy of left breast N60.12 Active 45164589 Problem Mild persistent asthma without complication J45.30 Active 165813588 Problem Diffuse cystic mastopathy of right breast N60.11 Active 34820690 Problem Bipolar 1 disorder, depressed, partial remission F 31.75 Active 81662921 Problem Moderate persistent asthma without complication J4 5.40 Active 894577895 Problem Tinnitus of right ear H93.11 Active 47111754 Problem Tinnitus of both ears H93.13 Active 6432525553770 Problem GERD (gastroesophageal reflux disease) K21.9 Active 408788803 Problem Contracture, left hand M24.542 Active 962089404906325 Problem Mood disorder F39 Active 973199 05 ALLERGIES No Information ENCOUNTERS Encounter Location Date Diagnosis [facility] [address] [facility] [id number] [address] [place] [phone] Aug, [place] [address] [id number] [address] [place] [address] Aug, [facility] [address] [facility] [id number] [address] [place] [address] Jul, [facility] [address] [id number] [address] [place] [address] Jul, [facility] [address] [id number] [address] [place] [address] Jul, Diffuse cystic mastopathy of left breast N60.12 and Diffuse cystic mastopathy of right breast N60.11 [facility] [address] [id number] [address] [place] [address] Jul, Fibrocystic disease of right breast N60.11 [facility] [address] [facility] [id number] [address] [place] [address] Jul, Fibrocystic disease of right breast N60.11 and Fibrocystic disease of left breast N60.12 [place] [address] [address] 15 Jul, 2018 Encounter for Medicare angella swan wellness exam Z00.00 ; Schizoaffective disorder, bipolar type F25.0 ; Chronic obstructive pulmonary disease, unspecified J44.9 ; Fibromyalgia M79.7 and Acute non-recurrent maxillary sinusitis J01.00 [place] [address] [address] 14 Jul, 2018 Daytime somnolence R40.0 [place] [address] [address] 14 Jul, 2018 [place] [address] [address] 13 Jul, 2018 [place] [address] [address] 12 Jul, 2018 Panic disorder with agorapho syd F40.01 ; Anxiety disorder, unspecified F41.9 ; Other chronic pain G89.29 and Daytime somnolence R40.0 [place] [address] [address] Jul, [place] [address] [address] Jun, [place] [address] [address] Jun, Hip pain, left M25.552 ; Leg pain, left M79.605 ; Lumbar pain M54.5 and Mood disorder F39 [place] [address] [address] 08 Jun, 2018 Diabetes E11.9 ; Other chron ic pain G89.29 and Anxiety disorder, unspecified F41.9 [place] [address] [address] Jun, Hip pain, left M25.552 ; Leg pain, left M79.605 ; Lumbar pain M54.5 and Mood disorder F39 [place] [address] [id number] [address] [place] [address] May, Diabetes E11.9 [place] [address] [id number] [address] [place] [address] May, [place] [address] [id number] [address] [place] [address] May, Other chronic pain G89.29 an d Anxiety disorder, unspecified F41.9 [place] [address] [id number] [address] [place] [address] May, [place] [address] [id number] [address] [place] [address] May, [place] [address] [facility] [id number] [address] [place] [address] May, Tinnitus of right ear H93.11 [place] [address] [id number] [address] [place] [address] May, Diabetes E11.9 ; Tinnitus of both ears H93.13 ; Contracture, left hand M24.542 and Family history of rheumatic joint disease Z82.69 [place] [address] [id number] [address] [place] [address] Apr, [place] [address] [id number] [address] [place] [address] Apr, [place] [address] [id number] [address] [place] [address] Apr, Tinnitus of right ear H93.11 and Hypertension I10 [place] [address] [facility] [id number] [address] [place] [address] Apr, Other chronic pain G89.29 ; Daytime somnolence R40.0 and Anxiety disorder, unspecified F41.9 [place] [address] [facility] [id number] [address] [place] [address] Apr, [facility] [address] [facility] [id number] [address] [place] [address] Apr, [facility] [address] [facility] [id number] [address] [place] [address] Mar, Tinnitus of right ear H93.11 [facility] [address] [place] [id number] [place] [address] Mar, [facility] [address] [facility] [id number] [address] [place] [address] Mar, Anxiety disorder, unspecifie d F41.9 ; Other chronic pain G89.29 and Daytime somnolence R40.0 [facility] [address] [place] [id number] [place] [address] Mar, Irritable bowel syndrome wit h both constipation and diarrhea K58.2 [facility] [address] [place] [id number] [address] [place] [address] Mar, [facility] [address] [facility] [id number] [address] Mar, Hypertension I10 [facility] [address] [place] [id number] [address] [place] [id number] 14 Mar, 2018 [facility] [address] [place] [id number] [address] [place] [address] Mar, [facility] [address] [place] [id number] [address] [place] [address] Mar, [facility] [address] [facility] [id number] [address] [place] [address] Mar, Diabetes E11.9 [facility] [address] [facility] [id number] [address] [place] [address] Mar, [facility] [address] [facility] [id number] [address] [place] [address] Feb, Daytime somnolence R40.0 and Anxiety disorder, unspecified F41.9 [facility] [address] [facility] [id number] [address] [place] [address] Feb, [facility] [address] [facility] [id number] [address] [place] [address] Feb, [facility] [address] [facility] [id number] [address] [place] [address] Feb, Tremors of nervous system R2 5.1 and Acute swimmer''s ear of right side H60.331 [facility] [address] [facility] [id number] [address] [place] [address] Feb, Cerebrovascular accident (CV A) due to occlusion of right cerebellar artery I63.541 and Hypertension I10 [facility] [address] [facility] [id number] [address] [place] [address] Feb, [facility] [address] [facility] [id number] [address] [place] [address] Feb, Cerebrovascular accident (CV A) due to occlusion of right cerebellar artery I63.[id number] [place] [id number] Feb, Hyponatremia E87.1 [facility] [address] [facility] [id number] [address] [place] [address] Feb, [facility] [address] [facility] [id number] [address] [place] [address] Feb, Daytime somnolence R40.0 [facility] [address] [facility] [id number] [address] [place] [address] Feb, [facility] [address] [facility] [id number] [address] [place] [id number] Jan, [facility] [address] [facility] [id number] [address] [place] [id number] Jan, [facility] [address] [facility] [id number] [address] [place] [address] Jan, Chronic obstructive pulmonar y disease, unspecified J44.9 and Anxiety disorder, unspecified F41.9 [place] [address] [id number] [address] [place] [address] 27 Jan, 2018 Hypertension I10 ; Fibromyal medhat M79.7 and Lumbago with sciatica, left side M54.42 [place] [address] [id number] [address] [place] [address] Jan, [place] [address] [id number] [address] [place] [address] 20 Jan, 2018 Cerebrovascular accident (CV A) due to occlusion of right cerebellar artery I63.541 [place] [address] [id number] [address] [place] [address] 19 Jan, 2018 [place] [address] [id number] [address] [place] [address] 13 Jan, 2018 Arthritis M19.90 [place] [address] [id number] [address] [place] [address] 07 Jan, 2018 [place] [address] [facility] [id number] [address] [place] [address] 04 Jan, 2018 Abnormal mammogram of right breast R92.8 [place] [address] [facility] [id number] [address] [place] [address] Dec, Daytime somnolence R40.0 and Right otitis media with effusion H65.91 [place] [address] [id number] [address] [place] [address] Dec, [place] [address] [id number] [address] [place] [address] Dec, Cerebrovascular accident (CV A) due to occlusion of right cerebellar artery I63.541 [place] [address] [id number] [address] [place] [address] Dec, [place] [address] [id number] [address] [place] [address] Dec, [facility] [address] [id number] [address] [place] [address] Nov, Bipolar 1 disorder, depresse d, partial remission F31.75 and Panic disorder with agoraphobia F40.01 [facility] [address] [id number] [address] [place] [address] Nov, Panlobular emphysema J43.1 [facility] [address] [id number] [address] [place] [phone] Nov, Cerebrovascular accident (CV A) due to occlusion of right cerebellar artery I63.541 and Acute non-recurrent maxillary sinusitis J01.00 [facility] [address] [id number] [address] [place] [address] Nov, Panlobular emphysema J43.1 [facility] [address] [id number] [address] [place] [address] Nov, [facility] [address] [id number] [address] [place] [phone] Nov, [facility] [address] [id number] [address] [place] [address] Nov, [facility] [address] [id number] [address] [place] [address] Nov, [facility] [address] [id number] [address] [place] [address] Nov, [facility] [address] [id number] [address] [place] [address] Nov, [facility] [address] [facility] [id number] [address] [place] [address] Nov, [facility] [address] [id number] [address] [place] [address] Nov, Mild persistent asthma witho ut complication J45.30 and Irritable bowel syndrome with both constipation and diarrhea K58.2 [facility] [address] [id number] [address] [place] [address] Nov, [facility] [address] [id number] [address] [place] [id number] Oct, [facility] [address] [facility] [id number] [address] [place] [address] Oct, [facility] [address] [facility] [id number] [address] [place] [address] Oct, Type 2 diabetes mellitus wit h diabetic neuropathy, unspecified whether surveillance technician insulin use E11.40 ; Diabetes E11.9 ; Slow transit constipation K59.01 ; Edema of both legs R60.0 and Dysfunction of right eustachian tube H69.81 [facility] [address] [facility] [id number] [address] [place] [address] Oct, Frequent headaches R51 [facility] [address] [id number] [address] [place] [address] Oct, [facility] [address] [id number] [address] [place] [address] Oct, [facility] [address] [id number] [address] [place] [address] Oct, [facility] [address] [facility] [id number] [address] [place] [address] Oct, [facility] [address] [facility] [id number] [address] [place] [address] Oct, [facility] [address] [id number] [address] [place] [address] Oct, [facility] [address] [facility] [id number] [address] [place] [address] Oct, [facility] [address] [facility] [id number] [address] [place] [address] Oct, [facility] [address] [facility] [id number] [address] [place] [address] September, Frequent headaches R51 [facility] [address] [facility] [id number] [address] [place] [address] September, Bilateral otitis media with effusion H65.93 ; Dizziness R42 and Essential tremor G25.0 [facility] [address] [facility] [id number] [address] [place] [address] September, Chronic obstructive pulmonar y disease, unspecified COPD type J44.9 [facility] [address] [facility] [id number] [address] [place] [address] September, Chronic obstructive pulmonar y disease, unspecified COPD type J44.9 [facility] [address] [facility] [id number] [address] [place] [address] September, Migraine without aura and wi thout status migrainosus, not intractable G43.009 [facility] [address] [facility] [id number] [address] [place] [address] September, [facility] [address] [facility] [id number] [address] [place] [address] September, [facility] [address] [place] [id number] [address] [place] [id number] September, [facility] [address] [facility] [id number] [address] [place] [address] September, Frequent headaches R51 [facility] [address] [facility] [id number] [address] [place] [address] Aug, [facility] [address] [facility] [id number] [address] [place] [address] Aug, Breast mass, right N63.10 [facility] [address] [place] [id number] [address] [place] [address] Aug, Breast lump N63.0 [facility] [address] [facility] [id number] [address] [place] [address] Aug, [facility] [address] [facility] [id number] [address] [place] [address] Aug, Bipolar affective disorder, remission status unspecified F31.9 and Diabetes E11.9 [place] [address] [facility] [id number] [address] [place] [address] Aug, Diabetes E11.9 ; Schizoaffec tive disorder, bipolar type F25.0 ; Pharyngitis due to other organism J02.8 ; Panlobular emphysema J43.1 and Irritable bowel syndrome with both constipation and diarrhea K58.2 [place] [address] [facility] [id number] [address] [place] [address] Aug, Abnormal mammogram R92.8 [place] [address] [facility] [id number] [address] [place] [address] Aug, [place] [address] [facility] [id number] [address] [place] [address] Aug, Bipolar 1 disorder, depresse d, moderate F31.32 ; Panic disorder with agoraphobia F40.01 and Chronic post-traumatic stress disorder (PTSD) F43.12 [place] [address] [facility] [id number] [address] [place] [address] Aug, [place] [address] [facility] [id number] [address] [place] [address] Aug, [place] [address] [facility] [id number] [address] [place] [address] Aug, [place] [address] [facility] [id number] [address] [place] [address] Jul, [place] [address] [facility] [id number] [address] [place] [address] Jul, Mild persistent asthma witho ut complication J45.30 [place] [address] [facility] [id number] [address] [place] [address] Jul, Mild persistent asthma witho ut complication J45.30 [place] [address] [facility] [id number] [address] [place] [address] Jul, Bipolar affective disorder, remission status unspecified F31.9 ; Diabetes E11.9 and Irritable bowel syndrome with constipation K58.1 [facility] [address] [id number] [address] [place] [address] 13 Jul, 2017 [facility] [address] [id number] [address] [place] [address] Jul, [facility] [address] [id number] [address] [place] [address] Jul, Frequent headaches R51 [facility] [address] [id number] [address] [place] [address] Jul, [facility] [address] [facility] [id number] [address] [place] [address] Jul, [facility] [address] [facility] [id number] [address] [place] [address] Jul, [facility] [address] [facility] [id number] [address] [place] [address] Jul, Frequent headaches R51 ; Fib rocystic disease of left breast N60.12 ; Fibrocystic disease of right breast N60.11 and Diabetes E11.9 [facility] [address] [facility] [id number] [address] [place] [address] Jul, [facility] [address] [id number] [address] [place] [address] Jul, [facility] [address] [facility] [id number] [address] [place] [phone] Jun, Exudative tonsillitis J03.90 [facility] [address] [facility] [id number] [address] [place] [address] Jun, [facility] [address] [facility] [id number] [address] [place] [address] Jun, [facility] [address] [facility] [id number] [address] [place] [address] 15 Jun, 2017 Mild persistent asthma witho ut complication J45.30 ; Chronic obstructive pulmonary disease, unspecified COPD type J44.9 and Exudative tonsillitis J03.90 [facility] [address] [id number] 13 Jun, 2017 Encounter for immunization Z 23 [facility] [address] [id number] 12 Jun, 2017 [facility] [address] [address] 12 Jun, 2017 [facility] [address] [id number] 09 Jun, 2017 [facility] [address] [address] 06 Jun, 2017 Tonsillitis J03.90 [facility] [address] [id number] 05 Jun, 2017 [facility] [address] [address] 03 Jun, 2017 Acute non-recurrent maxillar y sinusitis J01.00 [place] [address] [address] 02 Jun, 2017 [facility] [address] [id number] May, [facility] [address] [id number] May, [facility] [address] [id number] May, GERD (gastroesophageal reflu x disease) K21.9 [facility] [address] [address] May, Migraine without aura and wi thout status migrainosus, not intractable G43.009 [facility] [address] [place] [address] May, [facility] [address] [facility] [id number] [address] [place] [id number] May, [facility] [address] [facility] [id number] [address] [place] [phone] May, Panlobular emphysema J43.1 a nd Acute non-recurrent maxillary sinusitis J01.00 [facility] [address] [facility] [id number] [address] [place] [id number] May, Bipolar 1 disorder, depresse d, moderate F31.32 ; Panic disorder with agoraphobia F40.01 and Akathisia G25.71 [facility] [address] [facility] [id number] [address] [place] [id number] 27 Apr, 2017 [facility] [address] [place] [id number] [address] [place] [address] Apr, [facility] [address] [place] [id number] [address] [place] [address] Apr, Acute non-recurrent maxillar y sinusitis J01.00 [facility] [address] [facility] [id number] [address] [place] [id number] 07 Apr, 2017 Panlobular emphysema J43.1 [facility] [address] [facility] [id number] [address] [place] [phone] 04 Apr, 2017 [facility] [address] [facility] [id number] [address] [place] [id number] 04 Apr, 2017 Exudative tonsillitis J03.90 and Sore throat J02.9 [facility] [address] [facility] [id number] [address] [place] [id number] Mar, [facility] [address] [facility] [id number] [address] [place] [id number] 15 Mar, 2017 Acute non-recurrent maxillar y sinusitis J01.00 [facility] [address] [facility] [id number] [address] [place] [id number] Mar, [facility] [address] [facility] [id number] [address] [place] [address] Mar, Panlobular emphysema J43.1 a nd Diabetes E11.9 [facility] [address] [facility] [id number] [address] [place] [id number] 06 Mar, 2017 [facility] [address] [facility] [id number] [address] [place] [phone] 24 Feb, 2017 Wheezing R06.2 and Acute rec urrent pansinusitis J01.41 [facility] [address] [facility] [id number] [address] [place] [id number] Feb, [facility] [address] [facility] [id number] [address] [place] [id number] Feb, Acute non-recurrent maxillar y sinusitis J01.00 [facility] [address] [facility] [id number] [address] [place] [id number] Feb, Chronic obstructive pulmonar y disease, unspecified J44.9 [facility] [address] [facility] [id number] [address] [place] [id number] 02 Feb, 2017 Hypoxemia R09.02 and Chronic obstructive pulmonary disease, unspecified J44.9 [facility] [address] [place] [id number] [address] [place] [id number] 28 Jan, 2017 Bipolar 1 disorder, depresse d, moderate F31.32 ; Panic disorder with agoraphobia F40.01 ; Chronic post-traumatic stress disorder (PTSD) F43.12 ; Diabetes E11.9 and Moderate persistent asthma without complication J45.40 [facility] [address] [facility] [id number] [address] [place] [address] Jan, [facility] [address] [place] [id number] [address] [place] [id number] 19 Jan, 2017 Acute non-recurrent maxillar y sinusitis J01.00 [facility] [address] [place] [id number] [address] [place] [id number] Jan, [facility] [address] [id number] [address] [place] [id number] Jan, [facility] [address] [id number] [address] [place] [id number] Jan, Moderate persistent asthma w ithout complication J45.40 and Hypoxemia R09.02 [facility] [address] [id number] [address] [place] [id number] Jan, Moderate persistent asthma w ithout complication J45.40 and Hypoxemia R09.02 [facility] [address] [id number] [address] [place] [id number] Jan, [facility] [address] [id number] [address] [place] [id number] Dec, Acute non-recurrent maxillar y sinusitis J01.00 [facility] [address] [id number] [address] [place] [id number] Dec, Chronic obstructive pulmonar y disease, unspecified J44.9 [facility] [address] [id number] [address] [place] [address] Dec, [facility] [address] [id number] [address] [place] [id number] Dec, Mild persistent asthma witho ut complication J45.30 and Other chronic pain G89.29 [facility] [address] [id number] [address] [place] [id number] Nov, [facility] [address] [id number] [address] [place] [id number] Nov, Acute non-recurrent maxillar y sinusitis J01.00 [facility] [address] [id number] [address] [place] [id number] Nov, [facility] [address] [id number] [address] [place] [id number] Nov, [facility] [address] [id number] [address] [place] [id number] Oct, [facility] [address] [facility] [id number] [address] [place] [id number] Oct, Bipolar 1 disorder, depresse d, partial remission F31.75 ; Panic disorder with agoraphobia F40.01 and Chronic post-traumatic stress disorder (PTSD) F43.12 [place] [address] [place] [id number] [address] [place] [address] Oct, Acute non-recurrent maxillar y sinusitis J01.00 [place] [address] [facility] [id number] [address] [place] [id number] Oct, [place] [address] [place] [id number] [address] [place] [id number] Oct, Diabetes E11.9 [place] [address] [place] [id number] [address] [place] [address] September, Diabetes E11.9 [place] [address] [facility] [id number] [address] [place] [id number] September, Diabetes E11.9 and Sinus tac hycardia R00.0 [place] [address] [facility] [id number] [address] [place] [id number] September, [place] [address] [place] [id number] [address] [place] [address] September, [place] [address] [place] [id number] [address] [place] [id number] Aug, Diabetes E11.9 and Lumbago w ith sciatica, right side M54.41 [place] [address] [facility] [id number] [address] [place] [id number] Aug, [place] [address] [place] [id number] [address] [place] [address] Jul, Bipolar 1 disorder, depresse d, moderate F31.32 ; Panic disorder with agoraphobia F40.01 and Chronic post-traumatic stress disorder (PTSD) F43.12 [facility] [address] [id number] [address] [place] [id number] Jul, Sore throat J02.9 [facility] [address] [id number] [address] [place] [address] Jul, [facility] [address] [facility] [id number] [address] [place] [id number] Jul, [facility] [address] [id number] [address] [place] [id number] Jul, [facility] [address] [id number] [address] [place] [id number] Jul, [facility] [address] [facility] [id number] [address] [place] [address] Jul, Sore throat J02.9 and Pharyn gitis, unspecified etiology J02.9 [facility] [address] [id number] [address] [place] [id number] 27 Jun, 2016 [facility] [address] [id number] [address] [place] [id number] 23 Jun, 2016 Diabetes E11.9 [facility] [address] [facility] [id number] [address] [place] [phone] 20 Jun, 2016 [facility] [address] [id number] [address] [place] [phone] Jun, [facility] [address] [id number] [address] [place] [id number] Jun, [facility] [address] [facility] [id number] [address] [place] [id number] Jun, [facility] [address] [facility] [id number] [address] [place] [id number] 16 Jun, 2016 [facility] [address] [facility] [id number] [address] [place] [id number] 15 Jun, 2016 [facility] [address] [facility] [id number] [address] [place] [id number] 10 Jun, 2016 [facility] [address] [facility] [id number] [address] [place] [address] Jun, [place] [id number] [facility] [id number] [address] [place] [address] May, Diabetes E11.9 ; Other chron ic pain G89.29 ; Acute recurrent maxillary sinusitis J01.01 ; Bipolar I disorder with depression F31.9 and Anxiety disorder, unspecified F41.9 [place] [address] [facility] [id number] [address] [place] [id number] May, [place] [address] [facility] [id number] [address] [place] [address] May, Diabetes E11.9 ; Bipolar I d isorder with depression F31.9 ; Anxiety disorder, unspecified F41.9 ; Other chronic pain G89.29 and Acute recurrent maxillary sinusitis J01.01 [place] [address] [facility] [id number] [address] [place] [address] May, [place] [address] [facility] [id number] [address] [place] [address] May, Attention deficit hyperactiv ity disorder (ADHD), predominantly inattentive type F90.0 [place] [address] [place] [id number] [address] [place] [address] May, [place] [address] [facility] [id number] [address] [place] [phone] Apr, Attention deficit hyperactiv ity disorder (ADHD), predominantly inattentive type F90.0 and Non-seasonal allergic rhinitis due to other allergic trigger J30.89 [place] [address] [facility] [id number] [address] [place] [address] Apr, Bipolar 1 disorder, depresse d, moderate F31.32 ; Panic disorder with agoraphobia F40.01 and Chronic post-traumatic stress disorder (PTSD) F43.12 [place] [address] [id number] [address] [place] [address] 06 Apr, 2016 Dental examination Z01.20 [place] [address] [facility] [id number] [address] [place] [address] Mar, [place] [address] [facility] [id number] [address] [place] [address] Mar, [place] [address] [facility] [id number] [address] [place] [id number] Mar, Bipolar I disorder with depr ession F31.9 and Anxiety disorder, unspecified F41.9 [place] [address] [facility] [id number] [address] [place] [address] Mar, Panic disorder with agorapho syd F40.01 ; Bipolar 1 disorder, depressed, moderate F31.32 and Chronic post-traumatic stress disorder (PTSD) F43.12 [place] [address] [place] [id number] [address] [place] [address] Mar, [place] [address] [place] [id number] [address] [place] [id number] Mar, Dental caries K02.9 [place] [address] [facility] [id number] [address] [place] [address] 24 Feb, 2016 Lumbago with sciatica, left side M54.42 ; Lumbago with sciatica, right side M54.41 and Other chronic pain G89.29 [place] [address] [facility] [id number] [address] [place] [address] Feb, [place] [address] [facility] [id number] [address] [place] [id number] 14 Feb, 2016 [place] [address] [facility] [id number] [address] [place] [id number] 13 Feb, 2016 Bipolar I disorder with depr ession F31.9 ; PTSD (post-traumatic stress disorder) F43.10 and Mood disorder F39 [place] [address] [address] 13 Feb, 2016 [facility] [address] [address] 11 Feb, 2016 Dental examination Z01.20 [facility] [address] [place] [id number] [place] [address] 07 Feb, 2016 [facility] [address] [address] Feb, Acute bronchitis, unspecifie d organism J20.9 [facility] [address] [address] 26 Jan, 2016 Mood disorder F39 ; Migraine without aura and without status migrainosus, not intractable G43.009 ; Irritable bowel syndrome, unspecified type K58.9 ; Diabetes E11.9 and Encounter for immunization Z23 [place] [address] [address] 15 Jan, 2016 [facility] [address] [address] Jan, [place] [address] [address] Jan, [facility] [address] [address] Jan, [place] [address] [address] Jan, [facility] [address] [address] Dec, Bipolar I disorder with depr ession F31.9 ; PTSD (post-traumatic stress disorder) F43.10 and Panic disorder with agoraphobia F40.01 [facility] [address] [place] [id number] [address] [place] [address] Dec, Chronic obstructive pulmonar y disease, unspecified COPD type J44.9 ; Tremor R25.1 and Anxiety F41.9 [facility] [address] [id number] [address] [place] [id number] Dec, [facility] [address] [id number] [address] [place] [address] Nov, Tremors of nervous system R2 5.1 and Cramping of feet R25.2 [facility] [address] [id number] [address] [place] [phone] Nov, [facility] [address] [id number] [address] [place] [address] Nov, [facility] [address] [id number] [address] [place] [phone] Oct, Chronic obstructive pulmonar y disease, unspecified J44.9 [facility] [address] [id number] [address] [place] [address] Oct, [facility] [address] [id number] [address] [place] [address] Oct, Tremor R25.1 [facility] [address] [id number] [address] [place] [address] Oct, Bipolar I disorder with depr ession F31.9 ; Diabetes E11.9 ; PTSD (post-traumatic stress disorder) F43.10 and Panic disorder with agoraphobia F40.01 [facility] [address] [id number] [address] [place] [address] Oct, Mood disorder F39 [facility] [address] [id number] [address] [place] [address] September, [facility] [address] [id number] [address] [place] [address] September, Diabetes E11.9 ; Bipolar I d isorder with depression F31.9 ; PTSD (post-traumatic stress disorder) F43.10 and Panic disorder with agoraphobia F40.01 [facility] [address] [facility] [id number] [address] [place] [address] September, Mood disorder F39 ; Schizoaf fective disorder, unspecified type F25.9 ; Arthritis M19.90 ; Tremor R25.1 ; Acute non-recurrent frontal sinusitis J01.10 and Blood in stool K92.1 [facility] [address] [id number] [address] [place] [address] September, [facility] [address] [facility] [id number] [address] [place] [address] September, Chronic obstructive pulmonar y disease, unspecified J44.9 [facility] [address] [facility] [id number] [address] [place] [address] September, Diabetes E11.9 [facility] [address] [facility] [id number] [address] [place] [address] Aug, Other bipolar disorder F31.8 9 and Anxiety disorder, unspecified F41.9 [facility] [address] [facility] [id number] [address] [place] [id number] Aug, [facility] [address] [facility] [id number] [address] [place] [id number] Aug, Diabetes E11.9 [facility] [address] [facility] [id number] [address] [place] [address] Aug, [facility] [address] [facility] [id number] [address] [place] [id number] 14 Aug, 2015 Diabetes E11.9 ; Fatigue R53 .83 and Dizziness R42 [facility] [address] [id number] [address] [place] [id number] 13 Aug, 2015 Other bipolar disorder F31.8 9 [facility] [address] [facility] [id number] [address] [place] [address] 07 Aug, 2015 Generalized anxiety disorder F41.1 [facility] [address] [facility] [id number] [address] [place] [address] 07 Aug, 2015 Other bipolar disorder F31.8 9 and Anxiety disorder, unspecified F41.9 [place] [id number] [id number] [address] [place] [address] Aug, [facility] [address] [id number] [address] [place] [address] Jul, [facility] [address] [facility] [id number] [address] [place] [address] Jul, [facility] [address] [facility] [id number] [address] [place] [address] Jul, Bronchitis J40 [facility] [address] [facility] [id number] [address] [place] [address] Jul, Anxiety disorder F41.9 [facility] [address] [facility] [id number] [address] [place] [address] Jul, Other bipolar disorder F31.8 9 and Anxiety disorder, unspecified F41.9 [facility] [address] [facility] [id number] [address] [place] [address] Jul, Other bipolar disorder F31.8 9 and Fibromyalgia M79.7 [facility] [address] [facility] [id number] [address] [place] [address] Jul, [facility] [address] [facility] [id number] [address] [place] [id number] Jul, [facility] [address] [facility] [id number] [address] [place] [address] Jul, [facility] [address] [facility] [id number] [address] [place] [address] Jul, Other bipolar disorder F31.8 9 and Anxiety disorder, unspecified F41.9 [facility] [address] [facility] [id number] [address] [place] [address] Jun, GERD (gastroesophageal reflu x disease) K21.9 [facility] [address] [facility] [id number] [address] [place] [address] Jun, [facility] [address] [address] 14 May, 2015 [facility] [address] [address] 14 May, 2015 Diabetes E11.9 ; Back pain M 54.9 ; GERD (gastroesophageal reflux disease) K21.9 ; Hypertension I10 and Peripheral neuropathy G62.9 [facility] [address] [address] Mar, [facility] [address] [address] Mar, [facility] [address] [address] Mar, Acute sinusitis J01.90 and O titis media, left H66.92 [facility] [address] [address] Feb, [facility] [address] [address] Feb, [facility] [address] [address] Feb, [facility] [address] [address] Feb, [facility] [address] [address] Jan, [facility] [address] [address] Jan, Diabetes 250.00 and Back higinio n 724.5 [facility] [address] [address] Jan, [facility] [address] [address] Dec, Diabetes 250.00 ; Benign ess ential hypertension 401.1 and Allergic rhinitis 477.9 [facility] [address] [place] [id number] [place] [address], [place] [address] Dec, [facility] [address] [facility] [id number] [address] [place] [phone] Dec, [facility] [address] [facility] [id number] [address] [place] [id number] Dec, Psychosis 298.9 [facility] [address] [facility] [id number] [address] [place] [phone] Dec, Medication side effect 995.2 0 and Generalized anxiety disorder 300.02 [facility] [address] [facility] [id number] [address] [place] [id number] Dec, Acquired cognitive dysfuncti on 294.9 [facility] [address] [place] [id number] [address] [place] [id number] Dec, [facility] [address] [place] [id number] [address] [place] [id number] Dec, Unspecified myalgia and myos itis 729.1 and Generalized anxiety disorder 300.02 [facility] [address] [facility] [id number] [address] [place] [id number] Nov, [facility] [address] [facility] [id number] [address] [place] [id number] Nov, [facility] [address] [place] [id number] [address] [place] [id number] Nov, [facility] [address] [facility] [id number] [address] [place] [phone] Nov, Upper respiratory infection 465.9 and Chronic airway obstruction, not elsewhere classified 496 [facility] [address] [facility] [id number] [address] [place] [id number] Nov, Hyponatremia 276.1 [facility] [address] [facility] [id number] [address] [place] [id number] Oct, [facility] [address] [place] [id number] [address] [place] [id number] Oct, [facility] [address] [facility] [id number] [address] [place] [id number] Oct, [facility] [address] [id number] [address] [place] [id number] Oct, [facility] [address] [facility] [id number] [address] [place] [id number] 04 Oct, 2014 Hyponatremia 276.1 [facility] [address] [id number] [address] [place] [id number] 03 Oct, 2014 [facility] [address] [facility] [id number] [address] [place] [phone] Oct, [facility] [address] [facility] [id number] [address] [place] [id number] Oct, Generalized anxiety disorder 300.02 [facility] [address] [facility] [id number] [address] [place] [address] Oct, Generalized anxiety disorder 300.02 and Diabetes 250.00 [facility] [address] [id number] [address] [place] [address] Aug, [facility] [address] [facility] [id number] [address] [place] [phone] Aug, [facility] [address] [facility] [id number] [address] [place] [phone] Jul, [facility] [address] [facility] [id number] [address] [place] [phone] Jul, [facility] [address] [id number] [address] [place] [id number] Jun, [facility] [address] [id number] [address] [place] [phone] Jun, [facility] [address] [facility] [id number] [address] [place] [id number] Jun, [facility] [address] [facility] [id number] [address] [place] [id number] 06 Jun, 2013 [facility] [address] [id number] [address] [place] [address], [place] [address] Jun, [facility] [address] [id number] [address] [place] [address], [place] [address] May, [facility] [address] [id number] [address] [place] [address], [place] [address] May, [facility] [address] [id number] [address] [place] [address], [place] [address] Apr, [facility] [address] [id number] [address] [place] [address], [place] [address] Apr, [facility] [address] [id number] [address] [place] [address], [place] [address] Apr, [facility] [address] [id number] [address] [place] [address], [place] [address] Apr, [facility] [address] [id number] [address] [place] [address], [place] [address] Apr, [facility] [address] [id number] [address] [place] [address], [place] [address] Apr, [facility] [address] [id number] [address] [place] [address], [place] [address] Apr, [facility] [address] [id number] [address] [place] [address], [place] [address] Apr, [facility] [address] [id number] [address] [place] [address], [place] [address] Feb, [facility] [address] [id number] [address] [place] [address], [place] [address] Feb, [facility] [address] [id number] [address] [place] [address], [place] [address] 19 Jan, 2013 [facility] [address] [id number] [address] [place] [address], [place] [address] 06 Jan, 2013 [facility] [address] [id number] [address] [place] [address], [place] [address] Dec, [facility] [address] [id number] [address] [place] [address], [place] [address] Dec, [facility] [address] [id number] [address] [place] [address], [place] [address] Dec, [facility] [address] [id number] [address] [place] [address], [place] [address] Nov, [facility] [address] [id number] [address] [place] [address], [place] [address] Nov, [facility] [address] [id number] [address] [place] [address], [place] [address] Nov, [facility] [address] [id number] [address] [place] [address], [place] [address] Oct, [facility] [address] [id number] [address] [place] [address], [place] [address] Oct, [facility] [address] [id number] [address] [place] [address], [place] [address] Oct, [facility] [address] [id number] [address] [place] [address], [place] [address] September, [facility] [address] [id number] [address] [place] [address], [place] [address] September, [facility] [address] [id number] [address] [place] [address], [place] [address] September, [facility] [address] [id number] [address] [place] [address], [place] [address] Aug, [facility] [address] [id number] [address] [place] [address], [place] [address] Aug, [facility] [address] [id number] [address] [place] [address], [place] [address] Aug, [facility] [address] [id number] [address] [place] [address], [place] [address] 16 Aug, 2011 [facility] [address] [id number] [address] [place] [address], [place] [address] Jul, [facility] [address] [id number] [address] [place] [address], [place] [address] 21 Jun, 2011 [facility] [address] [id number] [address] [place] [address], [place] [address] 14 Jun, 2011 [facility] [address] [id number] [address] [place] [address], [place] [address] 13 Jun, 2011 [facility] [address] [id number] [address] [place] [address], [place] [address] 07 Jun, 2011 [facility] [address] [id number] [address] [place] [address], [place] [address] 03 Jun, 2011 [facility] [address] [id number] [address] [place] [address], [place] [address] May, [facility] [address] [id number] [address] [place] [address], [place] [address] May, [facility] [address] [id number] [address] [place] [address], [place] [address] May, [facility] [address] [id number] [address] [place] [address], [place] [address] 04 May, 2011 [facility] [address] [id number] [address] [place] [address], [place] [address] Apr, [facility] [address] [id number] [address] [place] [address], [place] [address] Apr, [facility] [address] [id number] [address] [place] [address], [place] [address] 05 Apr, 2011 [facility] [address] [id number] [address] [place] [address], [place] [address] 22 Mar, 2011 [facility] [address] [id number] [address] [place] [address], [place] [address] Mar, [facility] [address] [id number] [address] [place] [address] Mar, [facility] [address] [id number] [address] [place] [address] Feb, [facility] [address] [id number] [address] [place] [address] 13 Feb, 2011 [facility] [address] [id number] [address] [place] [address] Feb, [facility] [address] [id number] [address] [place] [address] Nov, [facility] [address] [id number] [address] [place] [address] September, [facility] [address] [id number] [address] [place] [address] Aug, [facility] [address] [id number] [address] [place] [address] Jul, [facility] [address] [id number] [address] [place] [address] May, [facility] [address] [id number] [address] [place] [address] Apr, [facility] [address] [id number] [address] [place] [address] Apr, [facility] [address] [id number] [address] [place] [address] Apr, [facility] [address] [id number] [address] [place] [phone] Apr, [facility] [address] [id number] [address] [place] [address] Apr, IMMUNIZATIONS No Known Immunizations SOCIAL HISTORY Never Assessed REASON FOR VISIT [facility] VITAL SIGNS MEDICATIONS Medication Instructions Dosage Frequency Start Date End Date Duration S tatus Diclofenac Sodium 75 mg 1 tablet by Oral route 2 times per day PRN Jun, Active dicyclomine 10 mg take 1 capsule (10 m g) by oral route 4 times per day 30 to 60 minutes before meals Apr, Acti ve Gas-X 80 mg Dec, Active tramadol 50 mg take 1 tablet by Oral route every 8 daja rs as needed May, Active Zoloft 50 mg 1 tablet by Oral route 1 time per day 2013 Active ProAir HFA 90 mcg/Actuation 2 puffs by I nhalation route 4 times per dayPRNwheezing May, Active Xanax 1 mg 1 tablet by Oral route 3 times per day May Active buspirone 10 mg take 1 tablet (10 mg) by oral route 2 times per day Jun, Active Zithromax Z-Ricardo 250 mg 2 tablet by Oral route 1 time per day for 5 days on day 1 then take 1 tab daily on days 2-5 Jan, Active Flonase 50 mcg/actuation 1 sprays by Avinash al route 2 times per day in each nostril Apr, Active Lactulose 10 gram/15 mL 15 mL by Oral route 2 times per day Feb, Active Albuterol Sulfate 90 mcg/actuation 2 puf fs by Inhalation route every 4 hours as needed for cough or wheezing Feb, Active Gabapentin 300 mg take 2 capsules (600 mg) by oral rou te 3 times per day Feb, Active Lisinopril 10 mg 1 tablet by Oral route 1 time per day 2 May, Active RESULTS No Results PROCEDURES No [...]
--- OUTSIDE RECORDS SUMMARY | 2019-07-17 10:44 | XMS REPORT ---
Author Author Sujey Renteria Doctor Organization [facility] Address Unknown Phone Unavailable Care Team Providers Care Director Employment Name Role Phone Migration, Doctor Unavailable Unavailable PROBLEMS Type Condition ICD9-CM Code [id number] Code Onset Dates Condition S tatus SNOMED Code Problem Other chronic pain G89.29 Active 8 2895529 Problem Chronic post-traumatic stress disorder (PTSD) F43. 12 Active 423889341 Problem Bipolar 1 disorder, depressed, moderate F31.32 Active 76415278 Problem Attention deficit hyperactiv ity disorder (ADHD), predominantly inattentive type F90.0 Active 27395060 Problem Bipolar affective disorder, remission status unspecified F31.9 Active 74682409 Problem Acute non-recurrent maxillary sinusitis J01.00 Active 31501806 Problem Bipolar I disorder with depression F31.9 Active 27253649 Problem Essential tremor G25.0 Active 609 482419 Problem Chronic obstructive pulmonary disease, unspecified J44.9 Active 94253077 Problem Schizoaffective disorder, bipolar type F25.0 Active 88628322 Problem Panic disorder with agoraphobia F40.01 Active 68399575 Problem Lumbago with sciatica, right side M54.41 Active 917572631 Problem Lumbago with sciatica, left side M54.42 Active 492533831 Problem Akathisia G25.71 Active 151048954 Problem Panlobular emphysema J43.1 Active 8377524 Problem Fibrocystic disease of left breast N60.12 Active 40443940 Problem Hypertension I10 Active 8803669 3 Problem Migraine without aura and without status migrain osus, not intractable G43.009 Active 087838997 Problem Diabetes E11.9 Active 96082428 Problem Arthritis M19.90 Active 7253500 Problem Anxiety disorder, unspecified F41.9 Active 591645951 Problem Fibrocystic disease of right breast N60.11 Active 75085968 Problem Back pain M54.9 Active 468024662 Problem Irritable bowel syndrome with both constipation and diarrh ea K58.2 Active 27020454 Problem Fibromyalgia M79.7 Active 5641698 7 Problem Irritable bowel syndrome with constipation K58.1 Active 336738595 Problem Other bipolar disorder F31.89 Active 84821991 Problem Slow transit constipation K59.01 Acti ve 83772323 Problem Daytime somnolence R40.0 Active 1 24748936191 Problem Abnormal mammogram of right breast R92.8 Active 389896849 Problem Diffuse cystic mastopathy of left breast N60.12 Active 97648328 Problem Mild persistent asthma without complication J45.30 Active 453543398 Problem Diffuse cystic mastopathy of right breast N60.11 Active 41706470 Problem Bipolar 1 disorder, depressed, partial remission F 31.75 Active 38564396 Problem Moderate persistent asthma without complication J4 5.40 Active 245333175 Problem Tinnitus of right ear H93.11 Active 10707415 Problem Tinnitus of both ears H93.13 Active 3925174306640 Problem GERD (gastroesophageal reflux disease) K21.9 Active 122770959 Problem Contracture, left hand M24.542 Active 040230836043441 Problem Mood disorder F39 Active 468680 05 ALLERGIES No Information ENCOUNTERS Encounter Location Date Diagnosis [facility] [id number] [place] [phone] Oct, [place] [address] [place] [id number] [place] [phone] Aug, Hypertension I10 [facility] [address] [place] [id number] [place] [phone] Aug, [facility] [address] [place] [id number] [place] [phone] Aug, [facility] [address] [place] [id number] [place] [phone] Aug, Diabetes E11.9 and Edema of both legs R60.0 [facility] [address] [place] [id number] [place] [phone] Aug, Panic disorder with agorapho syd F40.01 ; Other chronic pain G89.29 and Daytime somnolence R40.0 [facility] [address] [place] [id number] [place] [phone] Jul, [facility] [address] [facility] [id number] [address] [place] [address] Jul, [place] [address] [facility] [id number] [address] [place] [id number] Jul, Diffuse cystic mastopathy of left breast N60.12 and Diffuse cystic mastopathy of right breast N60.11 [place] [address] [facility] [id number] [address] [place] [phone] Jul, Fibrocystic disease of right breast N60.11 [place] [address] [facility] [id number] [address] [place] [address] Jul, Fibrocystic disease of right breast N60.11 and Fibrocystic disease of left breast N60.12 [place] [address] [place] [id number] [place] [phone] 15 Jul, 2018 Encounter for Medicare [facility] wellness exam Z00.00 ; Schizoaffective disorder, bipolar type F25.0 ; Chronic obstructive pulmonary disease, unspecified J44.9 ; Fibromyalgia M79.7 and Acute non-recurrent maxillary sinusitis J01.00 [place] [address] [place] [id number] [place] [id number] 14 Jul, 2018 Daytime somnolence R40.0 [place] [address] [place] [id number] [place] [phone] 14 Jul, 2018 [place] [address] [facility] [id number] [address] [place] [id number] 13 Jul, 2018 [place] [address] [facility] [id number] [address] [place] [phone] Jul, Panic disorder with agorapho syd F40.01 ; Anxiety disorder, unspecified F41.9 ; Other chronic pain G89.29 and Daytime somnolence R40.0 [place] [address] [facility] [id number] [address] [place] [address] Jul, [place] [address] [facility] [id number] [address] [place] [phone] Jun, [facility] [address] [facility] [id number] [address] [place] [id number] 08 Jun, 2018 Hip pain, left M25.552 ; Leg pain, left M79.605 ; Lumbar pain M54.5 and Mood disorder F39 [facility] [address] [facility] [id number] [address] [place] [phone] Jun, Diabetes E11.9 ; Other chron ic pain G89.29 and Anxiety disorder, unspecified F41.9 [place] [address] [facility] [id number] [address] [place] [address] 07 Jun, 2018 Hip pain, left M25.552 ; Leg pain, left M79.605 ; Lumbar pain M54.5 and Mood disorder F39 [place] [address] [place] [id number] [place] [phone] May, Diabetes E11.9 [facility] [address] [facility] [id number] [address] [place] [phone] May, [place] [address] [place] [id number] [place] [phone] May, Other chronic pain G89.29 an d Anxiety disorder, unspecified F41.9 [place] [address] [place] [id number] [place] [phone] May, [facility] [address] [place] [id number] [place] [phone] May, [facility] [address] [facility] [id number] [address] [place] [id number] May, Tinnitus of right ear H93.11 [place] [address] [place] [id number] [place] [address] May, Diabetes E11.9 ; Tinnitus of both ears H93.13 ; Contracture, left hand M24.542 and Family history of rheumatic joint disease Z82.69 [facility] [address] [id number] [address] [place] [phone] Apr, [facility] [address] [id number] [address] [place] [phone] Apr, [facility] [address] [id number] [address] [place] [id number] Apr, Tinnitus of right ear H93.11 and Hypertension I10 [facility] [address] [id number] [address] [place] [phone] Apr, Other chronic pain G89.29 ; Daytime somnolence R40.0 and Anxiety disorder, unspecified F41.9 [place] [address] [id number] [address] [place] [phone] Apr, [facility] [address] [facility] [id number] [address] [place] [id number] Apr, [facility] [address] [id number] [address] [place] [phone] Mar, Tinnitus of right ear H93.11 [facility] [address] [id number] [address] [place] [phone] Mar, [facility] [address] [facility] [id number] [address] [place] [id number] Mar, Anxiety disorder, unspecifie d F41.9 ; Other chronic pain G89.29 and Daytime somnolence R40.0 [facility] [address] [id number] [address] [place] [phone] Mar, Irritable bowel syndrome wit h both constipation and diarrhea K58.2 [facility] [address] [id number] [address] [place] [phone] Mar, [facility] [address] [facility] [id number] [address] [place] [phone] Mar, Hypertension I10 [facility] [address] [id number] [address] [place] [phone] Mar, [facility] [address] [facility] [id number] [address] [place] [phone] Mar, [facility] [address] [facility] [id number] [address] [place] [phone] Mar, [facility] [address] [facility] [id number] [address] [place] [id number] Mar, Diabetes E11.9 [facility] [address] [facility] [id number] [address] [place] [phone] Mar, [facility] [address] [facility] [id number] [address] [place] [phone] Feb, Daytime somnolence R40.0 and Anxiety disorder, unspecified F41.9 [facility] [address] [place] [id number] [place] [phone] Feb, [facility] [address] [facility] [id number] [address] [place] [id number] Feb, [facility] [address] [place] [id number] [place] [phone] Feb, Tremors of nervous system R2 5.1 and Acute swimmer''s ear of right side H60.331 [facility] [address] [place] [id number] [place] [id number] Feb, Cerebrovascular accident (CV A) due to occlusion of right cerebellar artery I63.541 and Hypertension I10 [facility] [address] [facility] [id number] [address] [place] [phone] Feb, [facility] [address] [facility] [id number] [address] [place] [id number] Feb, Cerebrovascular accident (CV A) due to occlusion of right cerebellar artery I63.541 [facility] [id number] [place] [id number] Feb, Hyponatremia E87.1 [facility] [address] [id number] [address] [place] [phone] Feb, [facility] [address] [facility] [id number] [address] [place] [phone] Feb, Daytime somnolence R40.0 [facility] [address] [facility] [id number] [address] [place] [phone] Feb, [facility] [address] [place] [id number] [place] [phone] Jan, [facility] [address] [facility] [id number] [address] [place] [phone] Jan, [facility] [address] [place] [id number] [place] [phone] Jan, Chronic obstructive pulmonar y disease, unspecified J44.9 and Anxiety disorder, unspecified F41.9 [place] [address] [phone] Jan, Hypertension I10 ; Fibromyal medhat M79.7 and Lumbago with sciatica, left side M54.42 [place] [address] [place] [id number] [place] [id number] 26 Jan, 2018 [place] [address] [place] [id number] [place] [phone] 20 Jan, 2018 Cerebrovascular accident (CV A) due to occlusion of right cerebellar artery I63.541 [place] [address] [place] [id number] [place] [id number] 19 Jan, 2018 [place] [address] [place] [id number] [place] [id number] 13 Jan, 2018 Arthritis M19.90 [place] [address] [place] [id number] [place] [id number] 07 Jan, 2018 [facility] [address] [place] [id number] [place] [id number] 04 Jan, 2018 Abnormal mammogram of right breast R92.8 [place] [address] [place] [id number] [place] [phone] Dec, Daytime somnolence R40.0 and Right otitis media with effusion H65.91 [facility] [address] [id number] [address] [place] [id number] Dec, [facility] [address] [id number] [address] [place] [phone] Dec, Cerebrovascular accident (CV A) due to occlusion of right cerebellar artery I63.541 [facility] [address] [id number] [address] [place] [phone] Dec, [facility] [address] [id number] [address] [place] [id number] Dec, [place] [address] [facility] [id number] [address] [place] [phone] Nov, Bipolar 1 disorder, depresse d, partial remission F31.75 and Panic disorder with agoraphobia F40.01 [place] [address] [id number] [address] [place] [phone] Nov, Panlobular emphysema J43.1 [place] [address] [facility] [id number] [address] [place] [phone] Nov, Cerebrovascular accident (CV A) due to occlusion of right cerebellar artery I63.541 and Acute non-recurrent maxillary sinusitis J01.00 [place] [address] [id number] [address] [place] [phone] Nov, Panlobular emphysema J43.1 [facility] [address] [id number] [address] [place] [id number] Nov, [facility] [address] [facility] [id number] [address] [place] [phone] Nov, [facility] [address] [facility] [id number] [address] [place] [phone] Nov, [facility] [address] [facility] [id number] [address] [place] [phone] Nov, [facility] [address] [id number] [address] [place] [phone] Nov, [facility] [address] [facility] [id number] [address] [place] [phone] Nov, [facility] [address] [facility] [id number] [address] [place] [phone] Nov, [facility] [address] [facility] [id number] [address] [place] [phone] Nov, Mild persistent asthma witho ut complication J45.30 and Irritable bowel syndrome with both constipation and diarrhea K58.2 [facility] [address] [place] [id number] [place] [phone] Nov, [facility] [address] [facility] [id number] [address] [place] [phone] Oct, [facility] [address] [facility] [id number] [address] [place] [phone] Oct, [facility] [address] [place] [id number] [place] [id number] Oct, Type 2 diabetes mellitus wit h diabetic neuropathy, unspecified whether care home insulin use E11.40 ; Diabetes E11.9 ; Slow transit constipation K59.01 ; Edema of both legs R60.0 and Dysfunction of right eustachian tube H69.81 [facility] [address] [facility] [id number] [address] [place] [phone] Oct, Frequent headaches R51 [facility] [address] [facility] [id number] [address] [place] [address] Oct, [facility] [address] [facility] [id number] [address] [place] [id number] Oct, [facility] [address] [facility] [id number] [address] [place] [phone] Oct, [facility] [address] [place] [id number] [place] [phone] 18 Oct, 2017 [facility] [address] [facility] [id number] [address] [place] [phone] Oct, [facility] [address] [facility] [id number] [address] [place] [phone] Oct, [facility] [address] [facility] [id number] [address] [place] [id number] Oct, [facility] [address] [facility] [id number] [address] [place] [phone] Oct, [facility] [address] [place] [id number] [place] [phone] September, Frequent headaches R51 [facility] [address] [place] [id number] [place] [address] September, Bilateral otitis media with effusion H65.93 ; Dizziness R42 and Essential tremor G25.0 [facility] [address] [facility] [id number] [address] [place] [phone] September, Chronic obstructive pulmonar y disease, unspecified COPD type J44.9 [facility] [address] [place] [id number] [place] [id number] September, Chronic obstructive pulmonar y disease, unspecified COPD type J44.9 [facility] [address] [facility] [id number] [address] [place] [phone] September, Migraine without aura and wi thout status migrainosus, not intractable G43.009 [facility] [address] [facility] [id number] [address] [place] [phone] September, [facility] [address] [place] [id number] [place] [phone] September, [facility] [address] [place] [id number] [place] [id number] September, [facility] [address] [place] [id number] [place] [phone] September, Frequent headaches R51 [place] [address] [facility] [id number] [address] [place] [phone] Aug, [place] [address] [facility] [id number] [address] [place] [address] Aug, Breast mass, right N63.10 [place] [address] [place] [id number] [place] [address] Aug, Breast lump N63.0 [place] [address] [facility] [id number] [address] [place] [phone] Aug, [place] [address] [place] [id number] [place] [address] Aug, Bipolar affective disorder, remission status unspecified F31.9 and Diabetes E11.9 [place] [address] [address] Aug, Diabetes E11.9 ; Schizoaffec tive disorder, bipolar type F25.0 ; Pharyngitis due to other organism J02.8 ; Panlobular emphysema J43.1 and Irritable bowel syndrome with both constipation and diarrhea K58.2 [place] [address] [place] [id number] [place] [phone] Aug, Abnormal mammogram R92.8 [place] [address] [place] [id number] [place] [phone] Aug, [place] [address] [place] [id number] [place] [phone] Aug, Bipolar 1 disorder, depresse d, moderate F31.32 ; Panic disorder with agoraphobia F40.01 and Chronic post-traumatic stress disorder (PTSD) F43.12 [place] [address] [place] [id number] [place] [phone] Aug, [place] [address] [address] Aug, [facility] [address] [facility] [id number] [address] [place] [phone] Aug, [facility] [address] [facility] [id number] [address] [place] [phone] Jul, [facility] [address] [facility] [id number] [address] [place] [phone] Jul, Mild persistent asthma witho ut complication J45.30 [facility] [address] [facility] [id number] [address] [place] [id number] 19 Jul, 2017 Mild persistent asthma witho ut complication J45.30 [facility] [address] [facility] [id number] [address] [place] [id number] 15 Jul, 2017 Bipolar affective disorder, remission status unspecified F31.9 ; Diabetes E11.9 and Irritable bowel syndrome with constipation K58.1 [facility] [address] [facility] [id number] [address] [place] [id number] 13 Jul, 2017 [facility] [address] [facility] [id number] [address] [place] [phone] Jul, [facility] [address] [facility] [id number] [address] [place] [phone] Jul, Frequent headaches R51 [facility] [address] [facility] [id number] [address] [place] [phone] Jul, [facility] [address] [facility] [id number] [address] [place] [id number] Jul, [facility] [address] [facility] [id number] [address] [place] [id number] Jul, [facility] [address] [facility] [id number] [address] [place] [id number] Jul, Frequent headaches R51 ; Fib rocystic disease of left breast N60.12 ; Fibrocystic disease of right breast N60.11 and Diabetes E11.9 [facility] [address] [facility] [id number] [address] [place] [id number] Jul, [facility] [address] [facility] [id number] [address] [place] [id number] Jul, [facility] [address] [facility] [id number] [address] [place] [id number] Jun, Exudative tonsillitis J03.90 [facility] [address] [place] [id number] [place] [id number] 20 Jun, 2017 [facility] [address] [id number] 19 Jun, 2017 [facility] [address] [id number] 15 Jun, 2017 Mild persistent asthma witho ut complication J45.30 ; Chronic obstructive pulmonary disease, unspecified COPD type J44.9 and Exudative tonsillitis J03.90 [place] [address] [id number] 13 Jun, 2017 Encounter for immunization Z 23 [facility] [facility] [address] [id number] [address] [place] [phone] Jun, [facility] [address] [id number] Jun, [facility] [address] [place] [address] [id number] [address] [place] [phone] Jun, [facility] [address] [facility] [id number] [address] [place] [phone] 06 Jun, 2017 Tonsillitis J03.90 [facility] [address] [facility] [id number] [address] [place] [id number] Jun, [facility] [address] [id number] [address] [place] [id number] Jun, Acute non-recurrent maxillar y sinusitis J01.00 [facility] [id number] [address] [place] [id number] Jun, [facility] [address] [id number] [address] [place] [phone] May, [facility] [id number] [place] [phone] May, [facility] [address] [id number] [address] [place] [id number] May, GERD (gastroesophageal reflu x disease) K21.9 [facility] [id number] [place] [id number] May, Migraine without aura and wi thout status migrainosus, not intractable G43.009 [place] [id number] [place] [phone] May, [facility] [address] [id number] May, [facility] [address] [id number] May, Panlobular emphysema J43.1 a nd Acute non-recurrent maxillary sinusitis J01.00 [place] [address] [address] May, Bipolar 1 disorder, depresse d, moderate F31.32 ; Panic disorder with agoraphobia F40.01 and Akathisia G25.71 [place] [id number] [place] [phone] Apr, [facility] [address] [id number] [address] [place] [phone] Apr, [facility] [address] [address] Apr, Acute non-recurrent maxillar y sinusitis J01.00 [facility] [id number] [address] [place] [phone] Apr, Panlobular emphysema J43.1 [facility] [address] [facility] [id number] [address] [place] [phone] 04 Apr, 2017 [facility] [address] [facility] [id number] [address] [place] [id number] Apr, Exudative tonsillitis J03.90 and Sore throat J02.9 [facility] [address] [facility] [id number] [address] [place] [phone] Mar, [facility] [id number] [place] [phone] Mar, Acute non-recurrent maxillar y sinusitis J01.00 [facility] [id number] [place] [phone] Mar, [facility] [id number] [place] [phone] Mar, Panlobular emphysema J43.1 a nd Diabetes E11.9 [facility] [id number] [address] [place] [id number] Mar, [facility] [id number] [place] [id number] Feb, Wheezing R06.2 and Acute rec urrent pansinusitis J01.41 [facility] [id number] [place] [id number] Feb, [facility] [id number] [address] [place] [id number] Feb, Acute non-recurrent maxillar y sinusitis J01.00 [facility] [id number] [address] [place] [phone] Feb, Chronic obstructive pulmonar y disease, unspecified J44.9 [facility] [address] [facility] [id number] [address] [place] [phone] Feb, Hypoxemia R09.02 and Chronic obstructive pulmonary disease, unspecified J44.9 [facility] [id number] [address] [place] [id number] 28 Jan, 2017 Bipolar 1 disorder, depresse d, moderate F31.32 ; Panic disorder with agoraphobia F40.01 ; Chronic post-traumatic stress disorder (PTSD) F43.12 ; Diabetes E11.9 and Moderate persistent asthma without complication J45.40 [facility] [address] [id number] [address] [place] [id number] 22 Jan, 2017 [facility] [address] [id number] [address] [place] [id number] 19 Jan, 2017 Acute non-recurrent maxillar y sinusitis J01.00 [facility] [address] [id number] [address] [place] [id number] 18 Jan, 2017 [facility] [address] [id number] [address] [place] [phone] Jan, [facility] [address] [id number] [address] [place] [phone] Jan, [facility].40 and Hypoxemia R09.02 [place] [address] [id number] [address] [place] [phone] Jan, Mod[facility] J[facility].40 and Hypoxemia R09.02 [place] [address] [id number] [address] [place] [phone] Jan, [facility] [address] [id number] [address] [place] [id number] Dec, Acute non-recurrent maxillar y sinusitis J01.00 [facility] [address] [id number] [address] [place] [phone] Dec, Chronic obstructive pulmonar y disease, unspecified J44.9 [facility] [address] [id number] [address] [place] [id number] Dec, [facility] [address] [id number] [address] [place] [phone] Dec, Mild persistent asthma witho ut complication J45.30 and Other chronic pain G89.29 [facility] [address] [id number] [address] [place] [id number] Nov, [facility] [address] [id number] [address] [place] [id number] Nov, Acute non-recurrent maxillar y sinusitis J01.00 [facility] [address] [id number] [address] [place] [phone] Nov, [facility] [address] [id number] [address] [place] [id number] Nov, [facility] [address] [id number] [address] [place] [phone] Oct, [facility] [address] [facility] [id number] [address] [place] [phone] Oct, Bipolar 1 disorder, depresse d, partial remission F31.75 ; Panic disorder with agoraphobia F40.01 and Chronic post-traumatic stress disorder (PTSD) F43.12 [facility] [address] [id number] [address] [place] [id number] Oct, Acute non-recurrent maxillar y sinusitis J01.00 [facility] [address] [id number] [address] [place] [id number] Oct, [facility] [address] [facility] [id number] [address] [place] [phone] Oct, Diabetes E11.9 [facility] [address] [id number] [address] [place] [phone] September, Diabetes E11.9 [facility] [address] [id number] [address] [place] [id number] September, Diabetes E11.9 and Sinus tac hycardia R00.0 [facility] [address] [facility] [id number] [address] [place] [phone] September, [place] [address] [facility] [id number] [address] [place] [phone] September, [facility] [id number] [address] [place] [id number] Aug, Diabetes E11.9 and Lumbago w ith sciatica, right side M54.41 [facility] [id number] [address] [place] [id number] Aug, [facility] [id number] [place] [id number] Jul, Bipolar 1 disorder, depresse d, moderate F31.32 ; Panic disorder with agoraphobia F40.01 and Chronic post-traumatic stress disorder (PTSD) F43.12 [facility] [id number] [address] [place] [id number] Jul, Sore throat J02.9 [facility] [id number] [place] [id number] Jul, [facility] [id number] [place] [id number] Jul, [facility] [id number] [place] [id number] Jul, [facility] [id number] [place] [id number] Jul, [facility] [address] [facility] [id number] [address] [place] [id number] Jul, Sore throat J02.9 and Pharyn gitis, unspecified etiology J02.9 [facility] [address] [facility] [id number] [address] [place] [phone] Jun, [facility] [address] [facility] [id number] [address] [place] [phone] Jun, Diabetes E11.9 [facility] [id number] [place] [id number] Jun, [facility] [address] [id number] [address] [place] [id number] Jun, [facility] [address] [id number] [address] [place] [id number] Jun, [facility] [address] [facility] [id number] [address] [place] [id number] Jun, [facility] [address] [id number] [address] [place] [phone] Jun, [facility] [address] [id number] [address] [place] [phone] Jun, [facility] [address] [facility] [id number] [address] [place] [phone] Jun, [facility] [address] [facility] [id number] [address] [place] [id number] Jun, [facility] [address] [facility] [id number] [address] [place] [id number] May, Diabetes E11.9 ; Other chron ic pain G89.29 ; Acute recurrent maxillary sinusitis J01.01 ; Bipolar I disorder with depression F31.9 and Anxiety disorder, unspecified F41.9 [facility] [address] [facility] [id number] [address] [place] [phone] May, [facility] [address] [facility] [id number] [address] [place] [id number] May, Diabetes E11.9 ; Bipolar I d isorder with depression F31.9 ; Anxiety disorder, unspecified F41.9 ; Other chronic pain G89.29 and Acute recurrent maxillary sinusitis J01.01 [facility] [address] [facility] [id number] [address] [place] [id number] May, [facility] [address] [facility] [id number] [address] [place] [id number] May, Attention deficit hyperactiv ity disorder (ADHD), predominantly inattentive type F90.0 [place] [address] [id number] [address] [place] [id number] May, [place] [address] [facility] [id number] [address] [place] [phone] Apr, Attention deficit hyperactiv ity disorder (ADHD), predominantly inattentive type F90.0 and Non-seasonal allergic rhinitis due to other allergic trigger J30.89 [place] [address] [facility] [id number] [address] [place] [id number] Apr, Bipolar 1 disorder, depresse d, moderate F31.32 ; Panic disorder with agoraphobia F40.01 and Chronic post-traumatic stress disorder (PTSD) F43.12 [place] [id number] [place] [id number] Apr, Dental examination Z01.20 [place] [id number] [place] [phone] Mar, [place] [address] [facility] [id number] [address] [place] [phone] Mar, [place] [address] [facility] [id number] [address] [place] [phone] Mar, Bipolar I disorder with depr ession F31.9 and Anxiety disorder, unspecified F41.9 [place] [id number] [place] [id number] 08 Mar, 2016 Panic disorder with agorapho syd F40.01 ; Bipolar 1 disorder, depressed, moderate F31.32 and Chronic post-traumatic stress disorder (PTSD) F43.12 [place] [address] [facility] [id number] [address] [place] [phone] Mar, [place] [address] [facility] [id number] [address] [place] [phone] Mar, Dental caries K02.9 [place] [address] [facility] [id number] [address] [place] [id number] Feb, Lumbago with sciatica, left side M54.42 ; Lumbago with sciatica, right side M54.41 and Other chronic pain G89.29 [facility] [address] [facility] [id number] [address] [place] [phone] Feb, [facility] [address] [facility] [id number] [address] [place] [phone] 14 Feb, 2016 [facility] [address] [facility] [id number] [address] [place] [id number] Feb, Bipolar I disorder with depr ession F31.9 ; PTSD (post-traumatic stress disorder) F43.10 and Mood disorder F39 [place] [address] [facility] [id number] [address] [place] [phone] Feb, [facility] [id number] [place] [id number] Feb, Dental examination Z01.20 [facility] [id number] [address] [place] [id number] 07 Feb, 2016 [facility] [address] [facility] [id number] [address] [place] [phone] 03 Feb, 2016 Acute bronchitis, unspecifie d organism J20.9 [facility] [address] [facility] [id number] [address] [place] [id number] 26 Jan, 2016 Mood disorder F39 ; Migraine without aura and without status migrainosus, not intractable G43.009 ; Irritable bowel syndrome, unspecified type K58.9 ; Diabetes E11.9 and Encounter for immunization Z23 [facility] [address] [facility] [id number] [address] [place] [id number] 15 Jan, 2016 [facility] [address] [facility] [id number] [address] [place] [id number] 06 Jan, 2016 [facility] [address] [facility] [id number] [address] [place] [id number] 02 Jan, 2016 [facility] [id number] [place] [id number] Jan, [facility] [address] [facility] [id number] [address] [place] [phone] Jan, [facility] [address] [facility] [id number] [address] [place] [id number] Dec, Bipolar I disorder with depr ession F31.9 ; PTSD (post-traumatic stress disorder) F43.10 and Panic disorder with agoraphobia F40.01 [facility] [address] [facility] [id number] [address] [place] [id number] Dec, Chronic obstructive pulmonar y disease, unspecified COPD type J44.9 ; Tremor R25.1 and Anxiety F41.9 [facility] [address] [facility] [id number] [address] [place] [phone] Dec, [facility] [address] [facility] [id number] [address] [place] [phone] Nov, Tremors of nervous system R2 5.1 and Cramping of feet R25.2 [facility] [address] [facility] [id number] [address] [place] [phone] Nov, [facility] [address] [facility] [id number] [address] [place] [phone] Nov, [facility] [address] [facility] [id number] [address] [place] [id number] Oct, Chronic obstructive pulmonar y disease, unspecified J44.9 [facility] [address] [facility] [id number] [address] [place] [phone] Oct, [facility] [address] [facility] [id number] [address] [place] [id number] Oct, Tremor R25.1 [facility] [address] [facility] [id number] [address] [place] [id number] Oct, Bipolar I disorder with depr ession F31.9 ; Diabetes E11.9 ; PTSD (post-traumatic stress disorder) F43.10 and Panic disorder with agoraphobia F40.01 [facility] [address] [facility] [id number] [address] [place] [id number] Oct, Mood disorder F39 [facility] [address] [facility] [id number] [address] [place] [id number] September, [facility] [address] [facility] [id number] [address] [place] [address] September, Diabetes E11.9 ; Bipolar I d isorder with depression F31.9 ; PTSD (post-traumatic stress disorder) F43.10 and Panic disorder with agoraphobia F40.01 [place] [address] [facility] [id number] [address] [place] [id number] September, Mood disorder F39 ; Schizoaf fective disorder, unspecified type F25.9 ; Arthritis M19.90 ; Tremor R25.1 ; Acute non-recurrent frontal sinusitis J01.10 and Blood in stool K92.1 [facility] [address] [facility] [id number] [address] [place] [id number] September, [facility] [address] [id number] [address] [place] [phone] September, Chronic obstructive pulmonar y disease, unspecified J44.9 [facility] [address] [facility] [id number] [address] [place] [id number] September, Diabetes E11.9 [facility] [address] [facility] [id number] [address] [place] [phone] Aug, Other bipolar disorder F31.8 9 and Anxiety disorder, unspecified F41.9 [facility] [address] [facility] [id number] [address] [place] [id number] Aug, [facility] [address] [facility] [id number] [address] [place] [id number] Aug, Diabetes E11.9 [facility] [address] [facility] [id number] [address] [place] [id number] Aug, [place] [address] [id number] [address] [place] [id number] 14 Aug, 2015 Diabetes E11.9 ; Fatigue R53 .83 and Dizziness R42 [facility] [address] [id number] [address] [place] [id number] 13 Aug, 2015 Other bipolar disorder F31.8 9 [facility] [address] [id number] [address] [place] [id number] 07 Aug, 2015 Generalized anxiety disorder F41.1 [facility] [address] [id number] [address] [place] [phone] Aug, Other bipolar disorder F31.8 9 and Anxiety disorder, unspecified F41.9 [facility] [address] [id number] [address] [place] [phone] Aug, [facility] [address] [facility] [id number] [address] [place] [phone] Jul, [facility] [address] [id number] [address] [place] [phone] 24 Jul, 2015 [facility] [address] [id number] [address] [place] [phone] Jul, Bronchitis J40 [facility] [address] [facility] [id number] [address] [place] [id number] Jul, Anxiety disorder F41.9 [facility] [address] [facility] [id number] [address] [place] [id number] Jul, Other bipolar disorder F31.8 9 and Anxiety disorder, unspecified F41.9 [facility] [address] [id number] [address] [place] [id number] 18 Jul, 2015 Other bipolar disorder F31.8 9 and Fibromyalgia M79.7 [facility] [address] [id number] [address] [place] [id number] 10 Jul, 2015 [facility] [address] [facility] [id number] [address] [place] [id number] Jul, [facility] [address] [facility] [id number] [address] [place] [id number] Jul, [facility] [address] [facility] [id number] [address] [place] [id number] Jul, Other bipolar disorder F31.8 9 and Anxiety disorder, unspecified F41.9 [facility] [address] [facility] [id number] [address] [place] [id number] Jun, GERD (gastroesophageal reflu x disease) K21.9 [facility] [address] [facility] [id number] [address] [place] [id number] Jun, [facility] [address] [facility] [id number] [address] [place] [id number] May, [facility] [address] [place] [id number] [place] [id number] May, Diabetes E11.9 ; Back pain M 54.9 ; GERD (gastroesophageal reflux disease) K21.9 ; Hypertension I10 and Peripheral neuropathy G62.9 [facility] [address] [facility] [id number] [address] [place] [id number] Mar, [facility] [address] [facility] [id number] [address] [place] [id number] Mar, [facility] [address] [place] [id number] [address] [place] [id number] Mar, Acute sinusitis J01.90 and O titis media, left H66.92 [facility] [address] [facility] [id number] [address] [place] [id number] Feb, [facility] [address] [facility] [id number] [address] [place] [id number] Feb, [facility] [address] [facility] [id number] [address] [place] [id number] Feb, [facility] [address] [facility] [id number] [address] [place] [id number] Feb, [facility] [facility] [address] [facility] [id number] [address] [place] [id number] Jan, [facility] [address] [facility] [id number] [address] [place] [address] Jan, Diabetes 250.00 and Back higinio n 724.5 [facility] [address] [facility] [id number] [address] [place] [address] Jan, [facility] [address] [place] [id number] [address] [place] [id number] Dec, Diabetes 250.00 ; Benign ess ential hypertension 401.1 and Allergic rhinitis 477.9 [facility] [address] [facility] [id number] [address] [place] [id number] Dec, [facility] [address] [place] [id number] [address] [place] [address] Dec, [facility] [address] [place] [id number] [address] [place] [address] Dec, Psychosis 298.9 [facility] [address] [place] [id number] [address] [place] [id number] Dec, Medication side effect 995.2 0 and Generalized anxiety disorder 300.02 [facility] [address] [facility] [id number] [address] [place] [id number] Dec, Acquired cognitive dysfuncti on 294.9 [facility] [address] [place] [id number] [address] [place] [id number] Dec, [facility] [address] [place] [id number] [address] [place] [id number] Dec, Unspecified myalgia and myos itis 729.1 and Generalized anxiety disorder 300.02 [facility] [address] [facility] [id number] [address] [place] [id number] Nov, [facility] [address] [place] [id number] [address] [place] [id number] Nov, [facility] [address] [id number] [address] [place] [id number] Nov, [facility] [address] [id number] [address] [place] [address] Nov, Upper respiratory infection 465.9 and Chronic airway obstruction, not elsewhere classified 496 [facility] [address] [id number] [address] [place] [phone] Nov, Hyponatremia 276.1 [facility] [address] [id number] [address] [place] [phone] Oct, [facility] [address] [id number] [address] [place] [id number] Oct, [facility] [address] [id number] [address] [place] [id number] Oct, [facility] [address] [id number] [address] [place] [id number] Oct, [facility] [address] [id number] [address] [place] [phone] Oct, Hyponatremia 276.1 [facility] [address] [id number] [address] [place] [id number] Oct, [facility] [address] [facility] [id number] [address] [place] [id number] Oct, [facility] [address] [id number] [address] [place] [id number] Oct, Generalized anxiety disorder 300.02 [facility] [address] [id number] [address] [place] [address] Oct, Generalized anxiety disorder 300.02 and Diabetes 250.00 [facility] [address] [id number] [address] [place] [id number] 14 Aug, 2014 [facility] [address] [id number] [address] [place] [id number] Aug, [facility] [address] [id number] [address] [place] [address], [place] [address] Jul, [facility] [address] [id number] [address] [place] [address], [place] [address] Jul, [facility] [address] [id number] [address] [place] [address], [place] [address] Jun, [facility] [address] [id number] [address] [place] [address], [place] [address] Jun, [facility] [address] [id number] [address] [place] [address], [place] [address] Jun, [facility] [address] [id number] [address] [place] [address], [place] [address] Jun, [facility] [address] [id number] [address] [place] [address], [place] [address] Jun, [facility] [address] [id number] [address] [place] [address], [place] [address] May, [facility] [address] [id number] [address] [place] [address], [place] [address] May, [facility] [address] [id number] [address] [place] [address], [place] [address] Apr, [facility] [address] [id number] [address] [place] [address], [place] [address] Apr, [facility] [address] [id number] [address] [place] [address], [place] [address] 18 Apr, 2013 [facility] [address] [id number] [address] [place] [address], [place] [id number] 18 Apr, 2013 [facility] [address] [id number] [address] [place] [address], [place] [address] Apr, [facility] [address] [id number] [address] [place] [address], [place] [address] Apr, [facility] [address] [id number] [address] [place] [address], [place] [address] Apr, [facility] [address] [id number] [address] [place] [address], [place] [address] Apr, [facility] [address] [id number] [address] [place] [address], [place] [address] Feb, [facility] [address] [id number] [address] [place] [address], [place] [address] Feb, [facility] [address] [id number] [address] [place] [address], [place] [address] Jan, [facility] [address] [id number] [address] [place] [address], [place] [address] Jan, [facility] [address] [id number] [address] [place] [address], [place] [id number] Dec, [facility] [address] [id number] [address] [place] [address], [place] [address] Dec, [facility] [address] [id number] [address] [place] [address], [place] [address] Dec, [facility] [address] [id number] [address] [place] [address], [place] [address] Nov, [facility] [address] [id number] [address] [place] [address], [place] [address] Nov, [facility] [address] [id number] [address] [place] [address], [place] [address] Nov, [facility] [address] [id number] [address] [place] [address], [place] [address] Oct, [facility] [address] [id number] [address] [place] [address], [place] [address] Oct, [facility] [address] [id number] [address] [place] [address], [place] [address] Oct, [facility] [address] [id number] [address] [place] [address], [place] [address] September, [facility] [address] [id number] [address] [place] [address], [place] [address] September, [facility] [address] [id number] [address] [place] [address], [place] [address] September, [facility] [address] [id number] [address] [place] [address], [place] [address] Aug, [facility] [address] [id number] [address] [place] [address], [place] [address] Aug, [facility] [address] [id number] [address] [place] [address], [place] [address] Aug, [facility] [address] [id number] [address] [place] [address], [place] [address] 16 Aug, 2011 [facility] [address] [id number] [address] [place] [address], [place] [address] Jul, [facility] [address] [id number] [address] [place] [address], [place] [address] Jun, [facility] [address] [id number] [address] [place] [address], [place] [address] 14 Jun, 2011 [facility] [address] [id number] [address] [place] [address], [place] [address] 13 Jun, 2011 [facility] [address] [id number] [address] [place] [address], [place] [address] 07 Jun, 2011 [facility] [address] [id number] [address] [place] [address], [place] [address] 03 Jun, 2011 [facility] [address] [id number] [address] [place] [address], [place] [address] May, [facility] [address] [id number] [address] [place] [address], [place] [address] 10 May, 2011 [facility] [address] [id number] [address] [place] [address], [place] [address] 09 May, 2011 [facility] [address] [id number] [address] [place] [address], [place] [address] May, [facility] [address] [id number] [address] [place] [address], [place] [address] Apr, [facility] [address] [id number] [address] [place] [address], [place] [address] Apr, [facility] [address] [id number] [address] [place] [address], [place] [address] 05 Apr, 2011 [facility] [address] [id number] [address] [place] [address], [place] [address] Mar, [facility] [address] [id number] [address] [place] [address], [place] [address] Mar, [facility] [address] [id number] [address] [place] [address], [place] [address] Mar, [facility] [address] [id number] [address] [place] [address], [place] [address] 13 Feb, 2011 [facility] [address] [id number] [address] [place] [address], [place] [address] 13 Feb, 2011 [facility] [address] [id number] [address] [place] [address], [place] [address] Feb, [facility] [address] [id number] [address] [place] [id number] Nov, [facility] [address] [id number] [address] [place] [address], [place] [address] September, [facility] [address] [id number] [address] [place] [id number] Aug, [facility] [address] [id number] [address] [place] [address], [place] [address] 14 Jul, 2010 [facility] [address] [id number] [address] [place] [id number] May, [facility] [address] [id number] [address] [place] [address], [place] [address] 31 Apr, 2010 [facility] [address] [id number] [address] [place] [id number] Apr, [facility] [address] [facility] [id number] [address] [place] [id number] Apr, [facility] [address] [facility] [id number] [address] [place] [id number] Apr, [facility] [address] [facility] [id number] [address] [place] [id number] Apr, IMMUNIZATIONS No Known Immunizations SOCIAL HISTORY Never Assessed REASON FOR VISIT EMR-[facility] PLAN OF CARE VITAL SIGNS MEDICATIONS Unknown [...]
--- OUTSIDE RECORDS SUMMARY | 2019-07-17 10:45 | XMS REPORT ---
Author Author Sujey GANDHI [facility] Address [address] [place] [address] Care Team Providers Care Leather Polisher Name Role Phone WHIT GANDHI Unavailable PROBLEMS Type Condition ICD9-CM Code QES68-FX Code Onset Dates Condition S tatus SNOMED Code Problem Hypertension I10 Active 3650055 3 Problem Diabetes E11.9 Active 46654251 Problem Other bipolar disorder F31.89 Active 31174888 Problem Anxiety disorder, unspecified F41.9 Active 967892007 Problem Fibromyalgia M79.7 Active 7845178 7 Problem Panic disorder with agoraphobia F40.01 Active 16715895 Problem Chronic obstructive pulmonary disease, unspecified J44.9 Active 44446504 Problem Lumbago with sciatica, left side M54.42 Active 639779198 Problem Lumbago with sciatica, right side M54.41 Active 130073930 Problem Fibrocystic disease of left breast N60.12 Active 85743805 Problem Other chronic pain G89.29 Active 8 4609209 Problem Fibrocystic disease of right breast N60.11 Active 94423895 Problem Bipolar 1 disorder, depressed, moderate F31.32 Active 65410926 Problem Arthritis M19.90 Active 2660974 Problem Irritable bowel syndrome with both constipation and diarrh ea K58.2 Active 06987530 Problem Irritable bowel syndrome with constipation K58.1 Active 971020493 Problem Tinnitus of right ear H93.11 Active 76322316 Problem Abnormal mammogram of right breast R92.8 Active 316519838 Problem Attention deficit hyperactiv ity disorder (ADHD), predominantly inattentive type F90.0 Active 65501952 Problem Bipolar affective disorder, remission status unspecified F31.9 Active 84610327 Problem Chronic post-traumatic stress disorder (PTSD) F43. 12 Active 067913383 Problem Essential tremor G25.0 Active 609 426922 Problem Schizoaffective disorder, bipolar type F25.0 Active 00241717 Problem Daytime somnolence R40.0 Active 1 61457293661 Problem Slow transit constipation K59.01 Acti ve 01493096 Problem Back pain M54.9 Active 852347848 Problem Bipolar 1 disorder, depressed, partial remission F 31.75 Active 06382304 Problem GERD (gastroesophageal reflux disease) K21.9 Active 440343695 Problem Mild persistent asthma without complication J45.30 Active 599276213 Problem Bipolar I disorder with depression F31.9 Active 64443643 Problem Acute non-recurrent maxillary sinusitis J01.00 Active 19476476 Problem Akathisia G25.71 Active 338300371 Problem Migraine without aura and without status migrain osus, not intractable G43.009 Active 104316228 Problem Moderate persistent asthma without complication J4 5.40 Active 856626782 Problem Panlobular emphysema J43.1 Active 6000095 ALLERGIES No Information ENCOUNTERS Encounter Location Date Diagnosis [place] [address] [address] 03 May, 2018 [place] [address] [address] Apr, [place] [address] [address] Apr, [place] [address] [address] Mar, Tinnitus of right ear H93.11 [place] [address] [address] [place] [id number] [address] [place] [address] Mar, [place] [address] [address] Mar, Anxiety disorder, unspecifie d F41.9 ; Other chronic pain G89.29 and Daytime somnolence R40.0 [place] [address] [address] [place] [id number] [address] [place] [address] Mar, Irritable bowel syndrome wit h both constipation and diarrhea K58.2 [place] [address] [address] [place] [id number] [address] [place] [address] Mar, [place] [address] [id number] [address] [place] [address] Mar, Hypertension I10 [facility] [address] [id number] [address] [place] [phone] Mar, [facility] [address] [facility] [id number] [address] [place] [address] Mar, [facility] [address] [facility] [id number] [address] [place] [address] Mar, [facility] [address] [id number] [address] [place] [address] Mar, Diabetes E11.9 [facility] [address] [facility] [id number] [address] [place] [address] Mar, [facility] [address] [facility] [id number] [address] [place] [address] Feb, Daytime somnolence R40.0 and Anxiety disorder, unspecified F41.9 [facility] [address] [id number] [address] [place] [address] Feb, [facility] [address] [facility] [id number] [address] [place] [address] Feb, [facility] [address] [facility] [id number] [address] [place] [address] Feb, Tremors of nervous system R2 5.1 and Acute swimmer''s ear of right side H60.331 [facility] [address] [id number] [address] [place] [address] Feb, Cerebrovascular accident (CV A) due to occlusion of right cerebellar artery I63.541 and Hypertension I10 [facility] [address] [id number] [address] [place] [address] Feb, [facility] [address] [facility] [id number] [address] [place] [address] Feb, Cerebrovascular accident (CV A) due to occlusion of right cerebellar artery I63.[id number] [place] [id number] 12 Feb, 2018 Hyponatremia E87.1 [facility] [address] [facility] [id number] [address] [place] [address] 09 Feb, 2018 [facility] [address] [facility] [id number] [address] [place] [address] Feb, Daytime somnolence R40.0 [facility] [address] [facility] [id number] [address] [place] [address] Feb, [facility] [address] [facility] [id number] [address] [place] [address] Jan, [place] [address] [facility] [id number] [address] [place] [address] Jan, [place] [address] [address] [place] [id number] [address] [place] [address] Jan, Chronic obstructive pulmonar y disease, unspecified J44.9 and Anxiety disorder, unspecified F41.9 [facility] [address] [place] [id number] [address] [place] [address] Jan, Hypertension I10 ; Fibromyal medhat M79.7 and Lumbago with sciatica, left side M54.42 [facility] [address] [place] [id number] [address] [place] [address] Jan, [facility] [address] [place] [id number] [address] [place] [address] 20 Jan, 2018 Cerebrovascular accident (CV A) due to occlusion of right cerebellar artery I63.541 [facility] [address] [facility] [id number] [address] [place] [address] 19 Jan, 2018 [facility] [address] [facility] [id number] [address] [place] [address] 13 Jan, 2018 Arthritis M19.90 [facility] [address] [facility] [id number] [address] [place] [address] Jan, [place] [address] [address] [facility] [id number] [address] [place] [address] Jan, Abnormal mammogram of right breast R92.8 [place] [address] [address] [facility] [id number] [address] [place] [address] Dec, Daytime somnolence R40.0 and Right otitis media with effusion H65.91 [place] [address] [address] [facility] [id number] [address] [place] [address] Dec, [place] [address] [address] [facility] [id number] [address] [place] [address] Dec, Cerebrovascular accident (CV A) due to occlusion of right cerebellar artery I63.541 [place] [address] [address] [facility] [id number] [address] [place] [address] Dec, [place] [address] [place] [id number] [address] [place] [address] Dec, [place] [address] [facility] [id number] [address] [place] [address] Nov, Bipolar 1 disorder, depresse d, partial remission F31.75 and Panic disorder with agoraphobia F40.01 [place] [address] [address] [place] [id number] [address] [place] [address] Nov, Panlobular emphysema J43.1 [place] [address] [address] [facility] [id number] [address] [place] [address] Nov, Cerebrovascular accident (CV A) due to occlusion of right cerebellar artery I63.541 and Acute non-recurrent maxillary sinusitis J01.00 [place] [address] [facility] [id number] [address] [place] [address] Nov, Panlobular emphysema J43.1 [place] [address] [facility] [id number] [address] [place] [address] Nov, [place] [address] [place] [id number] [address] [place] [address] Nov, [facility] [address] [id number] [address] [place] [address] Nov, [facility] [address] [id number] [address] [place] [id number] Nov, [facility] [address] [id number] [address] [place] [address] Nov, [facility] [address] [id number] [address] [place] [address] Nov, [facility] [address] [id number] [address] [place] [address] Nov, [facility] [address] [facility] [id number] [address] [place] [address] Nov, Mild persistent asthma witho ut complication J45.30 and Irritable bowel syndrome with both constipation and diarrhea K58.2 [facility] [address] [facility] [id number] [address] [place] [id number] Nov, [facility] [address] [id number] [address] [place] [address] Oct, [facility] [address] [facility] [id number] [address] [place] [address] Oct, [facility] [address] [facility] [id number] [address] [place] [address] Oct, Type 2 diabetes mellitus wit h diabetic neuropathy, unspecified 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 frame tender insulin use E11.40 ; Diabetes E11.9 ; Slow transit constipation K59.01 ; Edema of both legs R60.0 and Dysfunction of right eustachian tube H69.81 [facility] [address] [id number] [address] [place] [address] Oct, Frequent headaches R51 [facility] [address] [facility] [id number] [address] [place] [address] Oct, [facility] [address] [facility] [id number] [address] [place] [address] Oct, [facility] [address] [id number] [address] [place] [id number] Oct, [facility] [address] [id number] [address] [place] [address] Oct, [facility] [address] [facility] [id number] [address] [place] [address] Oct, [facility] [address] [facility] [id number] [address] [place] [address] Oct, [facility] [address] [facility] [id number] [address] [place] [address] Oct, [facility] [address] [facility] [id number] [address] [place] [address] Oct, [facility] [address] [facility] [id number] [address] [place] [address] September, Frequent headaches R51 [facility] [address] [facility] [id number] [address] [place] [address] September, Bilateral otitis media with effusion H65.93 ; Dizziness R42 and Essential tremor G25.0 [facility] [address] [facility] [id number] [address] [place] [address] September, Chronic obstructive pulmonar y disease, unspecified COPD type J44.9 [facility] [address] [facility] [id number] [address] [place] [id number] September, Chronic obstructive pulmonar y disease, unspecified COPD type J44.9 [facility] [address] [facility] [id number] [address] [place] [address] September, Migraine without aura and wi thout status migrainosus, not intractable G43.009 [facility] [address] [facility] [id number] [address] [place] [address] September, [facility] [address] [facility] [id number] [address] [place] [address] September, [facility] [address] [facility] [id number] [address] [place] [address] September, [facility] [address] [facility] [id number] [address] [place] [address] September, Frequent headaches R51 [facility] [address] [facility] [id number] [address] [place] [address] Aug, [facility] [address] [facility] [id number] [address] [place] [address] Aug, Breast mass, right N63.10 [place] [address] [address] [facility] [id number] [address] [place] [address] Aug, Breast lump N63.0 [place] [address] [address] [place] [id number] [place] [address] Aug, [place] [address] [address] Aug, Bipolar affective disorder, remission status unspecified F31.9 and Diabetes E11.9 [place] [address] [address] Aug, Diabetes E11.9 ; Schizoaffec tive disorder, bipolar type F25.0 ; Pharyngitis due to other organism J02.8 ; Panlobular emphysema J43.1 and Irritable bowel syndrome with both constipation and diarrhea K58.2 [place] [id number] [place] [address] Aug, Abnormal mammogram R92.8 [place] [id number] [place] [address] Aug, [place] [address] [address] Aug, Bipolar 1 disorder, depresse d, moderate F31.32 ; Panic disorder with agoraphobia F40.01 and Chronic post-traumatic stress disorder (PTSD) F43.12 [place] [address] [facility] [id number] [address] [place] [address] Aug, [facility] [address] [facility] [id number] [address] [place] [address] Aug, [facility] [address] [facility] [id number] [address] [place] [address] Aug, [facility] [address] [facility] [id number] [address] [place] [address] Jul, [facility] [address] [facility] [id number] [address] [place] [id number] Jul, Mild persistent asthma witho ut complication J45.30 [facility] [address] [facility] [id number] [address] [place] [address] Jul, Mild persistent asthma witho ut complication J45.30 [facility] [address] [facility] [id number] [address] [place] [address] Jul, Bipolar affective disorder, remission status unspecified F31.9 ; Diabetes E11.9 and Irritable bowel syndrome with constipation K58.1 [facility] [address] [facility] [id number] [address] [place] [address] Jul, [facility] [address] [facility] [id number] [address] [place] [address] Jul, [facility] [address] [facility] [id number] [address] [place] [address] Jul, Frequent headaches R51 [facility] [address] [id number] [address] [place] [address] Jul, [facility] [address] [facility] [id number] [address] [place] [address] Jul, [facility] [address] [facility] [id number] [address] [place] [address] Jul, [facility] [address] [facility] [id number] [address] [place] [address] Jul, Frequent headaches R51 ; Fib rocystic disease of left breast N60.12 ; Fibrocystic disease of right breast N60.11 and Diabetes E11.9 [facility] [address] [facility] [id number] [address] [place] [address] 02 Jul, 2017 [facility] [address] [facility] [id number] [address] [place] [address] Jul, [facility] [address] [place] [id number] [place] [address] 21 Jun, 2017 Exudative tonsillitis J03.90 [place] [address] [address] 20 Jun, 2017 [place] [address] [address] 19 Jun, 2017 [place] [address] [address] 15 Jun, 2017 Mild persistent asthma witho ut complication J45.30 ; Chronic obstructive pulmonary disease, unspecified COPD type J44.9 and Exudative tonsillitis J03.90 [place] [address] [address] 13 Jun, 2017 Encounter for immunization Z 23 [place] [address] [address] [place] [id number] [address] [place] [address] 12 Jun, 2017 [place] [address] [place] [id number] [address] [place] [address] Jun, [facility] [address] [place] [id number] [address] [place] [address] 09 Jun, 2017 [facility] [address] [place] [id number] [place] [address] 06 Jun, 2017 Tonsillitis J03.90 [place] [address] [address] [facility] [id number] [address] [place] [address] 05 Jun, 2017 [facility] [address] [place] [id number] [place] [address] 03 Jun, 2017 Acute non-recurrent maxillar y sinusitis J01.00 [facility] [address] [address] 02 Jun, 2017 [facility] [address] [place] [id number] [address] [place] [address] May, [facility] [address] [address] May, [facility] [address] [address] May, GERD (gastroesophageal reflu x disease) K21.9 [place] [address] [address] May, Migraine without aura and wi thout status migrainosus, not intractable G43.009 [place] [address] [address] May, [place] [address] [address] May, [place] [address] [address] May, Panlobular emphysema J43.1 a nd Acute non-recurrent maxillary sinusitis J01.00 [place] [address] [address] May, Bipolar 1 disorder, depresse d, moderate F31.32 ; Panic disorder with agoraphobia F40.01 and Akathisia G25.71 [place] [address] [address] Apr, [place] [address] [address] Apr, [place] [address] [address] Apr, Acute non-recurrent maxillar y sinusitis J01.00 [facility] [address] [id number] [address] [place] [address] 07 Apr, 2017 Panlobular emphysema J43.1 [facility] [address] [id number] [address] [place] [address] 04 Apr, 2017 [facility] [address] [id number] [address] [place] [address] 04 Apr, 2017 Exudative tonsillitis J03.90 and Sore throat J02.9 [facility] [address] [id number] [address] [place] [address] 17 Mar, 2017 [facility] [address] [id number] [address] [place] [address] 15 Mar, 2017 Acute non-recurrent maxillar y sinusitis J01.00 [facility] [address] [id number] [address] [place] [address] Mar, [facility] [address] [id number] [address] [place] [address] 09 Mar, 2017 Panlobular emphysema J43.1 a nd Diabetes E11.9 [facility] [address] [id number] [address] [place] [id number] 06 Mar, 2017 [facility] [address] [id number] [address] [place] [address] Feb, Wheezing R06.2 and Acute rec urrent pansinusitis J01.41 [facility] [address] [id number] [address] [place] [address] Feb, [facility] [address] [facility] [id number] [address] [place] [address] Feb, Acute non-recurrent maxillar y sinusitis J01.00 [facility] [address] [facility] [id number] [address] [place] [address] Feb, Chronic obstructive pulmonar y disease, unspecified J44.9 [facility] [address] [id number] [address] [place] [address] Feb, Hypoxemia R09.02 and Chronic obstructive pulmonary disease, unspecified J44.9 [facility] [address] [facility] [id number] [address] [place] [address] 28 Jan, 2017 Bipolar 1 disorder, depresse d, moderate F31.32 ; Panic disorder with agoraphobia F40.01 ; Chronic post-traumatic stress disorder (PTSD) F43.12 ; Diabetes E11.9 and Moderate persistent asthma without complication J45.40 [place] [id number] [id number] [address] [place] [address] 22 Jan, 2017 [place] [address] [id number] [address] [place] [id number] 19 Jan, 2017 Acute non-recurrent maxillar y sinusitis J01.00 [place] [address] [facility] [id number] [address] [place] [address] 18 Jan, 2017 [place] [address] [id number] [address] [place] [address] 18 Jan, 2017 [place] [address] [facility] [id number] [address] [place] [phone] Jan, Moderate persistent asthma w [facility] complication J45.40 and Hypoxemia R09.02 [place] [address] [address] [facility] [id number] [address] [place] [phone] Jan, Moderate persistent asthma w [facility] complication J45.40 and Hypoxemia R09.02 [place] [address] [id number] [address] [place] [id number] Jan, [place] [address] [address] [facility] [id number] [address] [place] [id number] Dec, Acute non-recurrent maxillar y sinusitis J01.00 [place] [address] [facility] [id number] [address] [place] [id number] Dec, Chronic obstructive pulmonar y disease, unspecified J44.9 [facility] [address] [id number] [address] [place] [id number] Dec, [facility] [address] [id number] [address] [place] [id number] Dec, Mild persistent asthma witho ut complication J45.30 and Other chronic pain G89.29 [facility] [address] [id number] [address] [place] [id number] Nov, [facility] [address] [id number] [address] [place] [phone] Nov, Acute non-recurrent maxillar y sinusitis J01.00 [facility] [address] [id number] [address] [place] [id number] Nov, [facility] [address] [id number] [address] [place] [id number] Nov, [facility] [address] [facility] [id number] [address] [place] [id number] Oct, [facility] [address] [id number] [address] [place] [id number] Oct, Bipolar 1 disorder, depresse d, partial remission F31.75 ; Panic disorder with agoraphobia F40.01 and Chronic post-traumatic stress disorder (PTSD) F43.12 [facility] [address] [id number] [address] [place] [id number] Oct, Acute non-recurrent maxillar y sinusitis J01.00 [facility] [address] [id number] [address] [place] [id number] Oct, [facility] [address] [id number] [address] [place] [id number] Oct, Diabetes E11.9 [facility] [address] [id number] [address] [place] [id number] September, Diabetes E11.9 [facility] [address] [facility] [id number] [address] [place] [id number] September, Diabetes E11.9 and Sinus tac hycardia R00.0 [facility] [address] [id number] [address] [place] [id number] September, [facility] [address] [facility] [id number] [address] [place] [id number] September, [facility] [address] [facility] [id number] [address] [place] [phone] Aug, Diabetes E11.9 and Lumbago w ith sciatica, right side M54.41 [facility] [address] [facility] [id number] [address] [place] [phone] Aug, [facility] [address] [facility] [id number] [address] [place] [address] Jul, Bipolar 1 disorder, depresse d, moderate F31.32 ; Panic disorder with agoraphobia F40.01 and Chronic post-traumatic stress disorder (PTSD) F43.12 [facility] [address] [facility] [id number] [address] [place] [id number] Jul, Sore throat J02.9 [facility] [address] [facility] [id number] [address] [place] [id number] Jul, [facility] [address] [facility] [id number] [address] [place] [id number] Jul, [facility] [address] [facility] [id number] [address] [place] [phone] Jul, [facility] [address] [facility] [id number] [address] [place] [address] Jul, [facility] [address] [facility] [id number] [address] [place] [address] Jul, Sore throat J02.9 and Pharyn gitis, unspecified etiology J02.9 [facility] [address] [facility] [id number] [address] [place] [id number] Jun, [facility] [address] [id number] [address] [place] [address] Jun, Diabetes E11.9 [facility] [address] [id number] [address] [place] [id number] Jun, [facility] [address] [id number] [address] [place] [id number] Jun, [facility] [address] [id number] [address] [place] [address] Jun, [facility] [address] [id number] [address] [place] [address] Jun, [facility] [address] [id number] [address] [place] [address] Jun, [facility] [address] [id number] [address] [place] [id number] Jun, [facility] [address] [id number] [address] [place] [address] Jun, [facility] [address] [id number] [address] [place] [address] Jun, [facility] [address] [id number] [address] [place] [address] May, Diabetes E11.9 ; Other chron ic pain G89.29 ; Acute recurrent maxillary sinusitis J01.01 ; Bipolar I disorder with depression F31.9 and Anxiety disorder, unspecified F41.9 [facility] [address] [id number] [address] [place] [address] May, [facility] [address] [id number] [address] [place] [address] May, Diabetes E11.9 ; Bipolar I d isorder with depression F31.9 ; Anxiety disorder, unspecified F41.9 ; Other chronic pain G89.29 and Acute recurrent maxillary sinusitis J01.01 [facility] [address] [id number] [address] [place] [address] May, [facility] [address] [id number] [address] [place] [address] May, Attention deficit hyperactiv ity disorder (ADHD), predominantly inattentive type F90.0 [facility] [address] [id number] [address] [place] [address] May, [facility] [address] [id number] [address] [place] [address] Apr, Attention deficit hyperactiv ity disorder (ADHD), predominantly inattentive type F90.0 and Non-seasonal allergic rhinitis due to other allergic trigger J30.89 [facility] [address] [id number] [address] [place] [address] Apr, Bipolar 1 disorder, depresse d, moderate F31.32 ; Panic disorder with agoraphobia F40.01 and Chronic post-traumatic stress disorder (PTSD) F43.12 [facility] [address] [facility] [id number] [address] [place] [address] Apr, Dental examination Z01.20 [facility] [address] [id number] [address] [place] [address] Mar, [facility] [address] [facility] [id number] [address] [place] [address] Mar, [facility] [address] [id number] [address] [place] [id number] Mar, Bipolar I disorder with depr ession F31.9 and Anxiety disorder, unspecified F41.9 [facility] [address] [id number] [address] [place] [id number] 08 Mar, 2016 Panic disorder with agorapho syd F40.01 ; Bipolar 1 disorder, depressed, moderate F31.32 and Chronic post-traumatic stress disorder (PTSD) F43.12 [facility] [address] [id number] [address] [place] [address] Mar, [facility] [address] [address] Mar, Dental caries K02.9 [facility] [address] [address] Feb, Lumbago with sciatica, left side M54.42 ; Lumbago with sciatica, right side M54.41 and Other chronic pain G89.29 [facility] [address] [address] 17 Feb, 2016 [facility] [address] [address] 14 Feb, 2016 [facility] [address] [address] 13 Feb, 2016 Bipolar I disorder with depr ession F31.9 ; PTSD (post-traumatic stress disorder) F43.10 and Mood disorder F39 [facility] [address] [address] Feb, [facility] [address] [address] 11 Feb, 2016 Dental examination Z01.20 [facility] [facility] [address] [address] 07 Feb, 2016 [facility] [address] [address] 03 Feb, 2016 Acute bronchitis, unspecifie d organism J20.9 [facility] [address] [address] 26 Jan, 2016 Mood disorder F39 ; Migraine without aura and without status migrainosus, not intractable G43.009 ; Irritable bowel syndrome, unspecified type K58.9 ; Diabetes E11.9 and Encounter for immunization Z23 [facility] [address] [place] [id number] [place] [address] 15 Jan, 2016 [facility] [address] [address] Jan, [facility] [address] [facility] [id number] [address] [place] [phone] Jan, [facility] [address] [facility] [id number] [address] [place] [phone] Jan, [facility] [address] [place] [id number] [address] [place] [address] Jan, [facility] [address] [place] [id number] [address] [place] [address] Dec, Bipolar I disorder with depr ession F31.9 ; PTSD (post-traumatic stress disorder) F43.10 and Panic disorder with agoraphobia F40.01 [facility] [address] [place] [id number] [address] [place] [address] Dec, Chronic obstructive pulmonar y disease, unspecified COPD type J44.9 ; Tremor R25.1 and Anxiety F41.9 [facility] [address] [place] [id number] [address] [place] [address] Dec, [facility] [address] [place] [id number] [place] [address] Nov, Tremors of nervous system R2 5.1 and Cramping of feet R25.2 [facility] [address] [place] [id number] [address] [place] [address] Nov, [facility] [address] [place] [id number] [address] [place] [address] Nov, [facility] [address] [facility] [id number] [address] [place] [address] Oct, Chronic obstructive pulmonar y disease, unspecified J44.9 [facility] [address] [facility] [id number] [address] [place] [address] Oct, [facility] [address] [place] [id number] [address] [place] [address] Oct, Tremor R25.1 [facility] [address] [place] [id number] [address] [place] [address] 23 Oct, 2015 Bipolar I disorder with depr ession F31.9 ; Diabetes E11.9 ; PTSD (post-traumatic stress disorder) F43.10 and Panic disorder with agoraphobia F40.01 [facility] [address] [place] [id number] [address] [place] [id number] 16 Oct, 2015 Mood disorder F39 [facility] [facility] [address] [place] [id number] [address] [place] [address] September, [facility] [address] [place] [id number] [address] [place] [address] September, Diabetes E11.9 ; Bipolar I d isorder with depression F31.9 ; PTSD (post-traumatic stress disorder) F43.10 and Panic disorder with agoraphobia F40.01 [facility] [address] [place] [id number] [address] [place] [address] September, Mood disorder F39 ; Schizoaf fective disorder, unspecified type F25.9 ; Arthritis M19.90 ; Tremor R25.1 ; Acute non-recurrent frontal sinusitis J01.10 and Blood in stool K92.1 [facility] [address] [place] [id number] [address] [place] [address] September, [facility] [address] [place] [id number] [address] [place] [address] September, Chronic obstructive pulmonar y disease, unspecified J44.9 [facility] [facility] [address] [place] [id number] [address] [place] [address] September, Diabetes E11.9 [facility] [facility] [address] [place] [id number] [address] [place] [address] Aug, Other bipolar disorder F31.8 9 and Anxiety disorder, unspecified F41.9 [facility] [address] [place] [id number] [address] [place] [address] Aug, [facility] [address] [place] [id number] [address] [place] [address] 19 Aug, 2015 Diabetes E11.9 [facility] [address] [id number] [address] [place] [id number] 18 Aug, 2015 [facility] [address] [facility] [id number] [address] [place] [address] 14 Aug, 2015 Diabetes E11.9 ; Fatigue R53 .83 and Dizziness R42 [facility] [address] [id number] [address] [place] [id number] 13 Aug, 2015 Other bipolar disorder F31.8 9 [facility] [address] [id number] [address] [place] [address] 07 Aug, 2015 Generalized anxiety disorder F41.1 [facility] [address] [facility] [id number] [address] [place] [id number] 07 Aug, 2015 Other bipolar disorder F31.8 9 and Anxiety disorder, unspecified F41.9 [facility] [address] [facility] [id number] [address] [place] [address] 04 Aug, 2015 [facility] [address] [id number] [address] [place] [id number] 29 Jul, 2015 [facility] [address] [facility] [id number] [address] [place] [id number] 24 Jul, 2015 [facility] [address] [facility] [id number] [address] [place] [address] Jul, Bronchitis J40 [facility] [address] [facility] [id number] [address] [place] [address] Jul, Anxiety disorder F41.9 [facility] [address] [id number] [address] [place] [address] Jul, Other bipolar disorder F31.8 9 and Anxiety disorder, unspecified F41.9 [facility] [address] [facility] [id number] [address] [place] [id number] 18 Jul, 2015 Other bipolar disorder F31.8 9 and Fibromyalgia M79.7 [facility] [address] [facility] [id number] [address] [place] [address] Jul, [facility] [address] [facility] [id number] [place] [address] Jul, [facility] [address] [facility] [id number] [address] [place] [id number] 08 Jul, 2015 [facility] [address] [address] Jul, Other bipolar disorder F31.8 9 and Anxiety disorder, unspecified F41.9 [facility] [address] [facility] [id number] [place] [address] Jun, GERD (gastroesophageal reflu x disease) K21.9 [facility] [address] [address] Jun, [facility] [address] [address] May, [facility] [address] [address] May, Diabetes E11.9 ; Back pain M 54.9 ; GERD (gastroesophageal reflux disease) K21.9 ; Hypertension I10 and Peripheral neuropathy G62.9 [facility] [id number] [place] [address] Mar, [facility] [address] [place] [id number] [address] [place] [address] Mar, [facility] [address] [place] [id number] [address] [place] [address] Mar, Acute sinusitis J01.90 and O titis media, left H66.92 [facility] [address] [place] [id number] [address] [place] [address] Feb, [facility] [address] [place] [id number] [address] [place] [id number] Feb, [facility] [address] [place] [id number] [address] [place] [id number] Feb, [facility] [address] [facility] [id number] [address] [place] [address] Feb, [facility] [address] [facility] [id number] [address] [place] [address] Jan, [facility] [address] [place] [id number] [address] [place] [address] Jan, Diabetes 250.00 and Back higinio n 724.5 [facility] [address] [facility] [id number] [address] [place] [address] Jan, [facility] [address] [place] [id number] [address] [place] [address] Dec, Diabetes 250.00 ; Benign ess ential hypertension 401.1 and Allergic rhinitis 477.9 [facility] [address] [place] [id number] [address] [place] [address] Dec, [facility] [address] [place] [id number] [address] [place] [address] Dec, [facility] [address] [place] [id number] [address] [place] [address] Dec, Psychosis 298.9 [facility] [address] [place] [id number] [address] [place] [address] Dec, Medication side effect 995.2 0 and Generalized anxiety disorder 300.02 [facility] [address] [place] [id number] [address] [place] [address] Dec, Acquired cognitive dysfuncti on 294.9 [facility] [address] [place] [id number] [address] [place] [id number] Dec, [facility] [address] [place] [id number] [address] [place] [address] Dec, Unspecified myalgia and myos itis 729.1 and Generalized anxiety disorder 300.02 [facility] [address] [place] [id number] [address] [place] [address] Nov, [facility] [address] [id number] [address] [place] [address] Nov, [facility] [address] [id number] [address] [place] [address] Nov, [facility] [address] [facility] [id number] [address] [place] [address] Nov, Upper respiratory infection 465.9 and Chronic airway obstruction, not elsewhere classified 496 [facility] [address] [id number] [address] [place] [address] Nov, Hyponatremia 276.1 [facility] [address] [facility] [id number] [address] [place] [address] Oct, [facility] [address] [facility] [id number] [address] [place] [address] Oct, [facility] [address] [facility] [id number] [address] [place] [address] Oct, [facility] [address] [id number] [address] [place] [address] Oct, [facility] [address] [facility] [id number] [address] [place] [address] Oct, Hyponatremia 276.1 [facility] [address] [facility] [id number] [address] [place] [id number] Oct, [facility] [address] [facility] [id number] [address] [place] [address] Oct, [facility] [address] [id number] [address] [place] [id number] Oct, Generalized anxiety disorder 300.02 [facility] [address] [facility] [id number] [address] [place] [address] Oct, Generalized anxiety disorder 300.02 and Diabetes 250.00 [facility] [address] [id number] [address] [place] [address] 14 Aug, 2014 [facility] [address] [id number] [address] [place] [address], [place] [address] 13 Aug, 2014 [facility] [address] [id number] [address] [place] [address], [place] [address] Jul, [facility] [address] [id number] [address] [place] [address], [place] [address] Jul, [facility] [address] [id number] [address] [place] [address], [place] [address] Jun, [facility] [address] [id number] [address] [place] [address], [place] [address] Jun, [facility] [address] [id number] [address] [place] [address], [place] [address] Jun, [facility] [address] [id number] [address] [place] [address], [place] [address] Jun, [facility] [address] [id number] [address] [place] [address], [place] [address] Jun, [facility] [address] [id number] [address] [place] [address], [place] [address] May, [facility] [address] [id number] [address] [place] [address], [place] [address] May, [facility] [address] [id number] [address] [place] [address], [place] [address] Apr, [facility] [address] [id number] [address] [place] [address], [place] [address] Apr, [facility] [address] [id number] [address] [place] [address], [place] [address] 18 Apr, 2013 [facility] [address] [id number] [address] [place] [address], [place] [address] 18 Apr, 2013 [facility] [address] [id number] [address] [place] [address], [place] [address] 17 Apr, 2013 [facility] [address] [id number] [address] [place] [address], [place] [address] Apr, [facility] [address] [id number] [address] [place] [address], [place] [address] Apr, [facility] [address] [id number] [address] [place] [address], [place] [address] Apr, [facility] [address] [id number] [address] [place] [address], [place] [address] Feb, [facility] [address] [id number] [address] [place] [address], [place] [address] Feb, [facility] [address] [id number] [address] [place] [address], [place] [address] Jan, [facility] [address] [id number] [address] [place] [address], [place] [address] Jan, [facility] [address] [id number] [address] [place] [address], [place] [address] Dec, [facility] [address] [id number] [address] [place] [address], [place] [address] Dec, [facility] [address] [id number] [address] [place] [address], [place] [address] Dec, [facility] [address] [id number] [address] [place] [address], [place] [address] Nov, [facility] [address] [id number] [address] [place] [address], [place] [address] Nov, [facility] [address] [id number] [address] [place] [address], [place] [address] Nov, [facility] [address] [id number] [address] [place] [address], [place] [address] Oct, [facility] [address] [id number] [address] [place] [address], [place] [address] Oct, [facility] [address] [id number] [address] [place] [address], [place] [address] Oct, [facility] [address] [id number] [address] [place] [address], [place] [address] September, [facility] [address] [id number] [address] [place] [address], [place] [address] September, [facility] [address] [id number] [address] [place] [address], [place] [address] September, [facility] [address] [id number] [address] [place] [address], [place] [address] Aug, [facility] [address] [id number] [address] [place] [address], [place] [address] Aug, [facility] [address] [id number] [address] [place] [address], [place] [address] Aug, [facility] [address] [id number] [address] [place] [address], [place] [address] Aug, [facility] [address] [id number] [address] [place] [address], [place] [id number] Jul, [facility] [address] [id number] [address] [place] [address], [place] [address] Jun, [facility] [address] [id number] [address] [place] [address], [place] [id number] 14 Jun, 2011 [facility] [address] [id number] [address] [place] [address], [place] [address] Jun, [facility] [address] [id number] [address] [place] [address], [place] [id number] 07 Jun, 2011 [facility] [address] [id number] [address] [place] [address], [place] [id number] 03 Jun, 2011 [facility] [address] [id number] [address] [place] [address], [place] [address] 13 May, 2011 [facility] [address] [id number] [address] [place] [address], [place] [address] 10 May, 2011 [facility] [address] [id number] [address] [place] [address], [place] [address] 09 May, 2011 [facility] [address] [id number] [address] [place] [address], [place] [address] May, [facility] [address] [id number] [address] [place] [address], [place] [address] Apr, [facility] [address] [id number] [address] [place] [address], [place] [address] Apr, [facility] [address] [id number] [address] [place] [address], [place] [address] Apr, [facility] [address] [id number] [address] [place] [address], [place] [address] Mar, [facility] [address] [id number] [address] [place] [address], [place] [address] Mar, [facility] [address] [id number] [address] [place] [address], [place] [address] Mar, [facility] [address] [id number] [address] [place] [address], [place] [address] Feb, [facility] [address] [id number] [address] [place] [address], [place] [address] Feb, [facility] [address] [id number] [address] [place] [address], [place] [address] Feb, [facility] [address] [id number] [address] [place] [address], [place] [address] Nov, [facility] [address] [id number] [address] [place] [address], [place] [address] September, [facility] [address] [id number] [address] [place] [address], [place] [address] Aug, [facility] [address] [id number] [address] [place] [address], [place] [id number] 14 Jul, 2010 [facility] [address] [id number] [address] [place] [address], [place] [address] May, [facility] [address] [facility] [id number] [address] [place] [id number] Apr, [facility] [address] [facility] [id number] [address] [place] [id number] Apr, [facility] [address] [facility] [id number] [address] [place] [id number] Apr, [facility] [address] [facility] [id number] [address] [place] [id number] Apr, [facility] [address] [facility] [id number] [address] [place] [id number] Apr, IMMUNIZATIONS No Known Immunizations SOCIAL HISTORY Never Assessed REASON FOR VISIT Med question PLAN OF CARE VITAL SIGNS MEDICATIONS [...]
--- OUTSIDE RECORDS SUMMARY | 2019-07-17 10:45 | XMS REPORT ---
Author Author Sujey GANDHI [facility] Address [address] [place] [address] Care Team Providers Care Press Supervisor Name Role Phone WHIT GANDHI Unavailable PROBLEMS Type Condition ICD9-CM Code ECR33-[place] Code Onset Dates Condition S tatus SNOMED Code Problem Hypertension I10 Active 8130157 3 Problem Diabetes E11.9 Active 20152757 Problem Other bipolar disorder F31.89 Active 44298983 Problem Anxiety disorder, unspecified F41.9 Active 926567607 Problem Fibromyalgia M79.7 Active 0921693 7 Problem Panic disorder with agoraphobia F40.01 Active 00148266 Problem Chronic obstructive pulmonary disease, unspecified J44.9 Active 72840271 Problem Lumbago with sciatica, left side M54.42 Active 420822384 Problem Lumbago with sciatica, right side M54.41 Active 498807939 Problem Fibrocystic disease of left breast N60.12 Active 23062133 Problem Other chronic pain G89.29 Active 8 6985155 Problem Fibrocystic disease of right breast N60.11 Active 39446465 Problem Bipolar 1 disorder, depressed, moderate F31.32 Active 42986235 Problem Arthritis M19.90 Active 9754124 Problem Irritable bowel syndrome with both constipation and diarrh ea K58.2 Active 62966879 Problem Irritable bowel syndrome with constipation K58.1 Active 336297954 Problem Tinnitus of right ear H93.11 Active 35612955 Problem Abnormal mammogram of right breast R92.8 Active 287452560 Problem Attention deficit hyperactiv ity disorder (ADHD), predominantly inattentive type F90.0 Active 22642665 Problem Bipolar affective disorder, remission status unspecified F31.9 Active 54763546 Problem Chronic post-traumatic stress disorder (PTSD) F43. 12 Active 200473022 Problem Essential tremor G25.0 Active 609 643693 Problem Schizoaffective disorder, bipolar type F25.0 Active 45324032 Problem Daytime somnolence R40.0 Active 1 11238448502 Problem Slow transit constipation K59.01 Acti ve 72143189 Problem Back pain M54.9 Active 012197052 Problem Bipolar 1 disorder, depressed, partial remission F 31.75 Active 95776758 Problem GERD (gastroesophageal reflux disease) K21.9 Active 774936843 Problem Mild persistent asthma without complication J45.30 Active 047937549 Problem Bipolar I disorder with depression F31.9 Active 98550690 Problem Acute non-recurrent maxillary sinusitis J01.00 Active 99793253 Problem Akathisia G25.71 Active 544238630 Problem Migraine without aura and without status migrain osus, not intractable G43.009 Active 197139521 Problem Moderate persistent asthma without complication J4 5.40 Active 972466103 Problem Panlobular emphysema J43.1 Active 1870164 ALLERGIES No Information ENCOUNTERS Encounter Location Date Diagnosis [place] [address] [place] [id number] [address] [place] [phone] May, [place] [address] [place] [id number] [address] [place] [phone] Apr, [facility] [address] [place] [id number] [address] [place] [phone] Apr, Other chronic pain G89.29 ; Daytime somnolence R40.0 and Anxiety disorder, unspecified F41.9 [place] [address] [place] [id number] [place] [phone] Apr, [facility] [address] [place] [id number] [address] [place] [phone] Apr, [place] [address] [facility] [id number] [address] [place] [phone] Mar, Tinnitus of right ear H93.11 [place] [address] [place] [id number] [address] [place] [phone] Mar, [place] [address] [place] [id number] [address] [place] [phone] Mar, Anxiety disorder, unspecifie d F41.9 ; Other chronic pain G89.29 and Daytime somnolence R40.0 [facility] [address] [facility] [id number] [address] [place] [id number] Mar, Irritable bowel syndrome wit h both constipation and diarrhea K58.2 [facility] [address] [id number] [address] [place] [phone] Mar, [facility] [address] [facility] [id number] [address] [place] [phone] Mar, Hypertension I10 [facility] [address] [id number] [address] [place] [phone] Mar, [facility] [address] [facility] [id number] [address] [place] [phone] Mar, [facility] [address] [facility] [id number] [address] [place] [phone] Mar, [facility] [address] [facility] [id number] [address] [place] [phone] Mar, Diabetes E11.9 [facility] [address] [facility] [id number] [address] [place] [id number] Mar, [facility] [address] [place] [id number] [address] [place] [phone] Feb, Daytime somnolence R40.0 and Anxiety disorder, unspecified F41.9 [facility] [address] [place] [id number] [address] [place] [phone] Feb, [facility] [address] [facility] [id number] [address] [place] [phone] Feb, [facility] [address] [place] [id number] [address] [place] [id number] Feb, Tremors of nervous system R2 5.1 and Acute swimmer''s ear of right side H60.331 [facility] [address] [facility] [id number] [address] [place] [id number] Feb, Cerebrovascular accident (CV A) due to occlusion of right cerebellar artery I63.541 and Hypertension I10 [facility] [address] [facility] [id number] [address] [place] [id number] Feb, [facility] [address] [facility] [id number] [address] [place] [id number] Feb, Cerebrovascular accident (CV A) due to occlusion of right cerebellar artery I63.[id number] [place] [address] [id number] Feb, Hyponatremia E87.1 [facility] [address] [facility] [id number] [address] [place] [phone] Feb, [facility] [address] [facility] [id number] [address] [place] [phone] Feb, Daytime somnolence R40.0 [facility] [address] [facility] [id number] [address] [place] [phone] Feb, [facility] [address] [facility] [id number] [address] [place] [phone] Jan, [facility] [address] [facility] [id number] [address] [place] [id number] Jan, [facility] [address] [facility] [id number] [address] [place] [phone] Jan, Chronic obstructive pulmonar y disease, unspecified J44.9 and Anxiety disorder, unspecified F41.9 [facility] [address] [facility] [id number] [address] [place] [id number] 27 Jan, 2018 Hypertension I10 ; Fibromyal medhat M79.7 and Lumbago with sciatica, left side M54.42 [facility] [address] [facility] [id number] [address] [place] [id number] 26 Jan, 2018 [facility] [address] [facility] [id number] [address] [place] [id number] 20 Jan, 2018 Cerebrovascular accident (CV A) due to occlusion of right cerebellar artery I63.541 [place] [address] [id number] [address] [place] [id number] 19 Jan, 2018 [place] [address] [facility] [id number] [address] [place] [id number] 13 Jan, 2018 Arthritis M19.90 [place] [address] [facility] [id number] [address] [place] [id number] 07 Jan, 2018 [place] [address] [facility] [id number] [address] [place] [phone] 04 Jan, 2018 Abnormal mammogram of right breast R92.8 [place] [address] [facility] [id number] [address] [place] [phone] Dec, Daytime somnolence R40.0 and Right otitis media with effusion H65.91 [place] [address] [facility] [id number] [address] [place] [phone] Dec, [place] [address] [facility] [id number] [address] [place] [id number] Dec, Cerebrovascular accident (CV A) due to occlusion of right cerebellar artery I63.541 [place] [address] [facility] [id number] [address] [place] [phone] Dec, [place] [address] [facility] [id number] [address] [place] [phone] Dec, [place] [address] [facility] [id number] [address] [place] [id number] Nov, Bipolar 1 disorder, depresse d, partial remission F31.75 and Panic disorder with agoraphobia F40.01 [place] [address] [id number] [address] [place] [id number] Nov, Panlobular emphysema J43.1 [place] [address] [facility] [id number] [address] [place] [phone] Nov, Cerebrovascular accident (CV A) due to occlusion of right cerebellar artery I63.541 and Acute non-recurrent maxillary sinusitis J01.00 [place] [address] [id number] [address] [place] [phone] Nov, Panlobular emphysema J43.1 [facility] [address] [id number] [address] [place] [phone] Nov, [facility] [address] [id number] [address] [place] [phone] Nov, [facility] [address] [id number] [address] [place] [phone] Nov, [facility] [address] [id number] [address] [place] [phone] Nov, [facility] [address] [id number] [address] [place] [phone] Nov, [facility] [address] [id number] [address] [place] [phone] Nov, [facility] [address] [id number] [address] [place] [phone] Nov, [facility] [address] [id number] [address] [place] [phone] Nov, Mild persistent asthma witho ut complication J45.30 and Irritable bowel syndrome with both constipation and diarrhea K58.2 [facility] [address] [facility] [id number] [address] [place] [phone] Nov, [facility] [address] [id number] [address] [place] [phone] Oct, [facility] [address] [id number] [address] [place] [id number] Oct, [facility] [address] [facility] [id number] [address] [place] [id number] Oct, Type 2 diabetes mellitus wit h diabetic neuropathy, unspecified whether superintendent container terminal insulin use E11.40 ; Diabetes E11.9 ; Slow transit constipation K59.01 ; Edema of both legs R60.0 and Dysfunction of right eustachian tube H69.81 [facility] [address] [id number] [address] [place] [phone] Oct, Frequent headaches R51 [facility] [address] [id number] [address] [place] [phone] Oct, [facility] [address] [id number] [address] [place] [phone] Oct, [facility] [address] [id number] [address] [place] [phone] Oct, [facility] [address] [id number] [address] [place] [phone] Oct, [facility] [address] [id number] [address] [place] [id number] Oct, [facility] [address] [id number] [address] [place] [id number] Oct, [facility] [address] [id number] [address] [place] [id number] Oct, [facility] [address] [id number] [address] [place] [phone] Oct, [facility] [address] [facility] [id number] [address] [place] [phone] September, Frequent headaches R51 [facility] [address] [id number] [address] [place] [id number] September, Bilateral otitis media with effusion H65.93 ; Dizziness R42 and Essential tremor G25.0 [facility] [address] [id number] [address] [place] [id number] September, Chronic obstructive pulmonar y disease, unspecified COPD type J44.9 [facility] [address] [facility] [id number] [address] [place] [id number] September, Chronic obstructive pulmonar y disease, unspecified COPD type J44.9 [facility] [address] [facility] [id number] [address] [place] [id number] September, Migraine without aura and wi thout status migrainosus, not intractable G43.009 [facility] [address] [facility] [id number] [address] [place] [id number] September, [facility] [address] [facility] [id number] [address] [place] [id number] September, [facility] [address] [place] [id number] [place] [id number] September, [facility] [address] [facility] [id number] [address] [place] [phone] September, Frequent headaches R51 [facility] [address] [facility] [id number] [address] [place] [id number] Aug, [facility] [address] [place] [id number] [place] [id number] Aug, Breast mass, right N63.10 [facility] [address] [place] [id number] [place] [phone] Aug, Breast lump N63.0 [facility] [address] [place] [id number] [place] [id number] Aug, [facility] [address] [place] [id number] [place] [id number] Aug, Bipolar affective disorder, remission status unspecified F31.9 and Diabetes E11.9 [place] [address] [place] [id number] [place] [id number] Aug, Diabetes E11.9 ; Schizoaffec tive disorder, bipolar type F25.0 ; Pharyngitis due to other organism J02.8 ; Panlobular emphysema J43.1 and Irritable bowel syndrome with both constipation and diarrhea K58.2 [place] [address] [facility] [id number] [address] [place] [id number] Aug, Abnormal mammogram R92.8 [facility] [address] [place] [id number] [address] [place] [id number] Aug, [facility] [address] [facility] [id number] [address] [place] [id number] Aug, Bipolar 1 disorder, depresse d, moderate F31.32 ; Panic disorder with agoraphobia F40.01 and Chronic post-traumatic stress disorder (PTSD) F43.12 [facility] [address] [facility] [id number] [address] [place] [phone] Aug, [facility] [address] [facility] [id number] [address] [place] [phone] Aug, [facility] [address] [facility] [id number] [address] [place] [phone] Aug, [facility] [address] [facility] [id number] [address] [place] [phone] Jul, [facility] [address] [place] [id number] [place] [id number] Jul, Mild persistent asthma witho ut complication J45.30 [facility] [address] [facility] [id number] [address] [place] [id number] Jul, Mild persistent asthma witho ut complication J45.30 [facility] [address] [facility] [id number] [address] [place] [id number] 15 Jul, 2017 Bipolar affective disorder, remission status unspecified F31.9 ; Diabetes E11.9 and Irritable bowel syndrome with constipation K58.1 [facility] [address] [facility] [id number] [address] [place] [id number] 13 Jul, 2017 [facility] [address] [facility] [id number] [address] [place] [id number] Jul, [facility] [address] [place] [id number] [place] [id number] 08 Jul, 2017 Frequent headaches R51 [facility] [address] [facility] [id number] [address] [place] [id number] 07 Jul, 2017 [facility] [id number] [place] [phone] Jul, [facility] [address] [facility] [id number] [address] [place] [id number] Jul, [facility] [address] [facility] [id number] [address] [place] [id number] Jul, Frequent headaches R51 ; Fib rocystic disease of left breast N60.12 ; Fibrocystic disease of right breast N60.11 and Diabetes E11.9 [facility] [address] [facility] [id number] [address] [place] [phone] Jul, [place] [address] [facility] [id number] [address] [phone] Jul, [place] [address] [facility] [id number] [place] [id number] Jun, Exudative tonsillitis J03.90 [place] [address] [place] [id number] [place] [phone] Jun, [place] [address] [place] [id number] [address] [place] [phone] Jun, [place] [address] [id number] 15 Jun, 2017 Mild persistent asthma witho ut complication J45.30 ; Chronic obstructive pulmonary disease, unspecified COPD type J44.9 and Exudative tonsillitis J03.90 [place] [id number] [place] [id number] 13 Jun, 2017 Encounter for immunization Z 23 [place] [address] [facility] [id number] [address] [place] [phone] Jun, [place] [address] [place] [id number] [address] [place] [phone] Jun, [place] [address] [place] [id number] [address] [place] [phone] 09 Jun, 2017 [facility] [place] [id number] [facility] [id number] [address] [place] [id number] 06 Jun, 2017 Tonsillitis J03.90 [facility] [address] [id number] 05 Jun, 2017 [facility] [address] [id number] 03 Jun, 2017 Acute non-recurrent maxillar y sinusitis J01.00 [facility] [address] [facility] [id number] [address] [id number] 02 Jun, 2017 [facility] [address] [id number] May, [facility] [address] [id number] May, [place] [address] [id number] May, GERD (gastroesophageal reflu x disease) K21.9 [facility] [address] [id number] May, Migraine without aura and wi thout status migrainosus, not intractable G43.009 [facility] [address] [id number] May, [place] [address] [id number] May, [facility] [address] [address] May, Panlobular emphysema J43.1 a nd Acute non-recurrent maxillary sinusitis J01.00 [facility] [address] [id number] 04 May, 2017 Bipolar 1 disorder, depresse d, moderate F31.32 ; Panic disorder with agoraphobia F40.01 and Akathisia G25.71 [facility] [address] [id number] [address] [place] [id number] 27 Apr, 2017 [facility] [address] [id number] [address] [place] [id number] 14 Apr, 2017 [facility] [address] [facility] [id number] [address] [place] [id number] 13 Apr, 2017 Acute non-recurrent maxillar y sinusitis J01.00 [facility] [address] [id number] [address] [place] [id number] 07 Apr, 2017 Panlobular emphysema J43.1 [facility] [address] [id number] [address] [place] [id number] Apr, [facility] [address] [facility] [id number] [address] [place] [id number] 04 Apr, 2017 Exudative tonsillitis J03.90 and Sore throat J02.9 [facility] [address] [facility] [id number] [address] [place] [id number] 17 Mar, 2017 [facility] [address] [facility] [id number] [address] [place] [id number] 15 Mar, 2017 Acute non-recurrent maxillar y sinusitis J01.00 [facility] [address] [facility] [id number] [address] [place] [id number] 13 Mar, 2017 [facility] [address] [facility] [id number] [address] [place] [phone] 09 Mar, 2017 Panlobular emphysema J43.1 a nd Diabetes E11.9 [facility] [address] [id number] [address] [place] [id number] 06 Mar, 2017 [facility] [address] [facility] [id number] [address] [place] [phone] 24 Feb, 2017 Wheezing R06.2 and Acute rec urrent pansinusitis J01.41 [facility] [address] [facility] [id number] [address] [place] [id number] Feb, [facility] [address] [id number] [address] [place] [id number] Feb, Acute non-recurrent maxillar y sinusitis J01.00 [facility] [address] [id number] [address] [place] [id number] 16 Feb, 2017 Chronic obstructive pulmonar y disease, unspecified J44.9 [facility] [address] [facility] [id number] [address] [place] [id number] 02 Feb, 2017 Hypoxemia R09.02 and Chronic obstructive pulmonary disease, unspecified J44.9 [place] [address] [facility] [id number] [address] [place] [phone] 28 Jan, 2017 Bipolar 1 disorder, depresse d, moderate F31.32 ; Panic disorder with agoraphobia F40.01 ; Chronic post-traumatic stress disorder (PTSD) F43.12 ; Diabetes E11.9 and Moderate persistent asthma without complication J45.40 [place] [address] [address] [facility] [id number] [address] [place] [id number] 22 Jan, 2017 [place] [address] [address] [facility] [id number] [address] [place] [id number] 19 Jan, 2017 Acute non-recurrent maxillar y sinusitis J01.00 [place] [address] [facility] [id number] [address] [place] [phone] 18 Jan, 2017 [place] [address] [address] [facility] [id number] [address] [place] [phone] 18 Jan, 2017 [place] [address] [facility] [id number] [address] [place] [phone] 12 Jan, 2017 Moderate persistent asthma w [facility] J[facility].40 and Hypoxemia R09.02 [place] [address] [address] [facility] [id number] [address] [place] [id number] 11 Jan, 2017 Moderate persistent asthma w [facility] J45.40 and Hypoxemia R09.02 [place] [address] [address] [facility] [id number] [address] [place] [id number] Jan, [place] [address] [id number] [address] [place] [id number] Dec, Acute non-recurrent maxillar y sinusitis J01.00 [facility] [address] [id number] [address] [place] [id number] Dec, Chronic obstructive pulmonar y disease, unspecified J44.9 [facility] [address] [id number] [address] [place] [id number] Dec, [facility] [address] [id number] [address] [place] [id number] Dec, Mild persistent asthma witho ut complication J45.30 and Other chronic pain G89.29 [facility] [address] [id number] [address] [place] [id number] Nov, [facility] [address] [id number] [address] [place] [id number] Nov, Acute non-recurrent maxillar y sinusitis J01.00 [facility] [address] [id number] [address] [place] [phone] Nov, [facility] [address] [id number] [address] [place] [id number] Nov, [facility] [address] [facility] [id number] [address] [place] [phone] Oct, [facility] [address] [id number] [address] [place] [id number] Oct, Bipolar 1 disorder, depresse d, partial remission F31.75 ; Panic disorder with agoraphobia F40.01 and Chronic post-traumatic stress disorder (PTSD) F43.12 [facility] [address] [id number] [address] [place] [phone] Oct, Acute non-recurrent maxillar y sinusitis J01.00 [facility] [address] [id number] [address] [place] [id number] Oct, [facility] [address] [facility] [id number] [address] [place] [id number] Oct, Diabetes E11.9 [facility] [address] [facility] [id number] [address] [place] [id number] September, Diabetes E11.9 [facility] [address] [facility] [id number] [address] [place] [id number] September, Diabetes E11.9 and Sinus tac hycardia R00.0 [facility] [address] [facility] [id number] [address] [place] [id number] September, [facility] [address] [facility] [id number] [address] [place] [phone] September, [facility] [address] [place] [id number] [address] [place] [id number] Aug, Diabetes E11.9 and Lumbago w ith sciatica, right side M54.41 [facility] [address] [facility] [id number] [address] [place] [phone] Aug, [facility] [address] [facility] [id number] [address] [place] [id number] Jul, Bipolar 1 disorder, depresse d, moderate F31.32 ; Panic disorder with agoraphobia F40.01 and Chronic post-traumatic stress disorder (PTSD) F43.12 [place] [address] [address] [facility] [id number] [address] [place] [id number] Jul, Sore throat J02.9 [facility] [address] [facility] [id number] [address] [place] [id number] Jul, [facility] [address] [facility] [id number] [address] [place] [id number] Jul, [facility] [address] [facility] [id number] [address] [place] [phone] Jul, [facility] [address] [facility] [id number] [address] [place] [phone] Jul, [facility] [address] [id number] [address] [place] [id number] Jul, Sore throat J02.9 and Pharyn gitis, unspecified etiology J02.9 [facility] [address] [id number] [address] [place] [phone] Jun, [facility] [address] [id number] [address] [place] [phone] Jun, Diabetes E11.9 [facility] [address] [id number] [address] [place] [id number] Jun, [facility] [address] [facility] [id number] [address] [place] [phone] Jun, [facility] [address] [facility] [id number] [address] [place] [phone] Jun, [facility] [address] [facility] [id number] [address] [place] [phone] Jun, [facility] [address] [facility] [id number] [address] [place] [phone] Jun, [facility] [address] [facility] [id number] [address] [place] [phone] Jun, [facility] [address] [facility] [id number] [address] [place] [phone] Jun, [facility] [address] [facility] [id number] [address] [place] [phone] Jun, [facility] [address] [facility] [id number] [address] [place] [id number] May, Diabetes E11.9 ; Other chron ic pain G89.29 ; Acute recurrent maxillary sinusitis J01.01 ; Bipolar I disorder with depression F31.9 and Anxiety disorder, unspecified F41.9 [facility] [address] [facility] [id number] [address] [place] [id number] May, [facility] [address] [facility] [id number] [address] [place] [id number] May, Diabetes E11.9 ; Bipolar I d isorder with depression F31.9 ; Anxiety disorder, unspecified F41.9 ; Other chronic pain G89.29 and Acute recurrent maxillary sinusitis J01.01 [place] [address] [address] [facility] [id number] [address] [place] [phone] May, [place] [address] [address] [facility] [id number] [address] [place] [phone] May, Attention deficit hyperactiv ity disorder (ADHD), predominantly inattentive type F90.0 [place] [address] [facility] [id number] [address] [place] [phone] May, [place] [address] [facility] [id number] [address] [place] [id number] Apr, Attention deficit hyperactiv ity disorder (ADHD), predominantly inattentive type F90.0 and Non-seasonal allergic rhinitis due to other allergic trigger J30.89 [place] [address] [facility] [id number] [address] [place] [id number] 15 Apr, 2016 Bipolar 1 disorder, depresse d, moderate F31.32 ; Panic disorder with agoraphobia F40.01 and Chronic post-traumatic stress disorder (PTSD) F43.12 [place] [address] [place] [id number] [address] [place] [phone] Apr, Dental examination Z01.20 [place] [address] [facility] [id number] [address] [place] [phone] Mar, [place] [address] [facility] [id number] [address] [place] [id number] Mar, [place] [address] [facility] [id number] [address] [place] [id number] Mar, Bipolar I disorder with depr ession F31.9 and Anxiety disorder, unspecified F41.9 [place] [address] [place] [id number] [address] [place] [phone] Mar, Panic disorder with agorapho syd F40.01 ; Bipolar 1 disorder, depressed, moderate F31.32 and Chronic post-traumatic stress disorder (PTSD) F43.12 [place] [address] [id number] [address] [place] [phone] Mar, [facility] [address] [facility] [id number] [address] [place] [id number] Mar, Dental caries K02.9 [place] [address] [id number] [address] [place] [id number] 24 Feb, 2016 Lumbago with sciatica, left side M54.42 ; Lumbago with sciatica, right side M54.41 and Other chronic pain G89.29 [place] [address] [facility] [id number] [address] [place] [id number] 17 Feb, 2016 [place] [address] [facility] [id number] [address] [place] [phone] 14 Feb, 2016 [place] [address] [facility] [id number] [address] [place] [id number] 13 Feb, 2016 Bipolar I disorder with depr ession F31.9 ; PTSD (post-traumatic stress disorder) F43.10 and Mood disorder F39 [place] [address] [facility] [id number] [address] [place] [id number] 13 Feb, 2016 [place] [address] [facility] [id number] [address] [place] [phone] Feb, Dental examination Z01.20 [facility] [address] [id number] [address] [place] [id number] 07 Feb, 2016 [facility] [address] [facility] [id number] [address] [place] [id number] 03 Feb, 2016 Acute bronchitis, unspecifie d organism J20.9 [facility] [address] [facility] [id number] [address] [place] [id number] Jan, Mood disorder F39 ; Migraine without aura and without status migrainosus, not intractable G43.009 ; Irritable bowel syndrome, unspecified type K58.9 ; Diabetes E11.9 and Encounter for immunization Z23 [facility] [address] [place] [id number] [place] [phone] Jan, [facility] [address] [facility] [id number] [address] [place] [phone] Jan, [facility] [address] [place] [id number] [place] [phone] Jan, [facility] [address] [place] [id number] [address] [place] [phone] Jan, [facility] [address] [place] [id number] [place] [phone] Jan, [place] [address] [place] [id number] [place] [phone] Dec, Bipolar I disorder with depr ession F31.9 ; PTSD (post-traumatic stress disorder) F43.10 and Panic disorder with agoraphobia F40.01 [facility] [address] [place] [id number] [address] [place] [id number] Dec, Chronic obstructive pulmonar y disease, unspecified COPD type J44.9 ; Tremor R25.1 and Anxiety F41.9 [place] [address] [place] [id number] [address] [place] [id number] Dec, [facility] [address] [place] [id number] [address] [place] [phone] Nov, Tremors of nervous system R2 5.1 and Cramping of feet R25.2 [place] [address] [place] [id number] [address] [place] [phone] Nov, [facility] [address] [place] [id number] [address] [place] [id number] Nov, [facility] [address] [place] [id number] [address] [place] [phone] Oct, Chronic obstructive pulmonar y disease, unspecified J44.9 [facility] [address] [facility] [id number] [address] [place] [id number] Oct, [facility] [address] [facility] [id number] [address] [place] [phone] Oct, Tremor R25.1 [facility] [address] [facility] [id number] [address] [place] [id number] Oct, Bipolar I disorder with depr ession F31.9 ; Diabetes E11.9 ; PTSD (post-traumatic stress disorder) F43.10 and Panic disorder with agoraphobia F40.01 [place] [address] [facility] [id number] [address] [place] [phone] Oct, Mood disorder F39 [place] [address] [place] [id number] [address] [place] [phone] September, [place] [id number] [place] [phone] September, Diabetes E11.9 ; Bipolar I d isorder with depression F31.9 ; PTSD (post-traumatic stress disorder) F43.10 and Panic disorder with agoraphobia F40.01 [place] [address] [place] [id number] [address] [place] [id number] September, Mood disorder F39 ; Schizoaf fective disorder, unspecified type F25.9 ; Arthritis M19.90 ; Tremor R25.1 ; Acute non-recurrent frontal sinusitis J01.10 and Blood in stool K92.1 [facility] [address] [facility] [id number] [address] [place] [phone] September, [place] [address] [place] [id number] [address] [place] [id number] September, Chronic obstructive pulmonar y disease, unspecified J44.9 [facility] [address] [place] [id number] [address] [place] [phone] September, Diabetes E11.9 [place] [address] [id number] [address] [place] [phone] Aug, Other bipolar disorder F31.8 9 and Anxiety disorder, unspecified F41.9 [facility] [address] [id number] [address] [place] [id number] Aug, [facility] [address] [id number] [address] [place] [phone] Aug, Diabetes E11.9 [facility] [address] [id number] [address] [place] [phone] 18 Aug, 2015 [facility] [address] [id number] [address] [place] [phone] 14 Aug, 2015 Diabetes E11.9 ; Fatigue R53 .83 and Dizziness R42 [facility] [address] [id number] [address] [place] [phone] Aug, Other bipolar disorder F31.8 9 [facility] [address] [id number] [address] [place] [phone] Aug, Generalized anxiety disorder F41.1 [facility] [address] [id number] [address] [place] [phone] 07 Aug, 2015 Other bipolar disorder F31.8 9 and Anxiety disorder, unspecified F41.9 [facility] [address] [id number] [address] [place] [phone] Aug, [facility] [address] [id number] [address] [place] [phone] Jul, [facility] [address] [id number] [address] [place] [phone] Jul, [facility] [address] [id number] [address] [place] [phone] Jul, Bronchitis J40 [facility] [address] [id number] [address] [place] [id number] Jul, Anxiety disorder F41.9 [facility] [address] [place] [id number] [address] [place] [id number] Jul, Other bipolar disorder F31.8 9 and Anxiety disorder, unspecified F41.9 [facility] [address] [place] [id number] [address] [place] [id number] 18 Jul, 2015 Other bipolar disorder F31.8 9 and Fibromyalgia M79.7 [facility] [address] [place] [id number] [address] [place] [phone] Jul, [facility] [address] [place] [id number] [address] [place] [phone] Jul, [facility] [address] [id number] Jul, [facility] [address] [place] [id number] [place] [phone] Jul, Other bipolar disorder F31.8 9 and Anxiety disorder, unspecified F41.9 [facility] [address] [place] [id number] [address] [place] [id number] Jun, GERD (gastroesophageal reflu x disease) K21.9 [facility] [address] [id number] Jun, [facility] [address] [place] [id number] [place] [phone] May, [facility] [address] [id number] May, Diabetes E11.9 ; Back pain M 54.9 ; GERD (gastroesophageal reflux disease) K21.9 ; Hypertension I10 and Peripheral neuropathy G62.9 [facility] [address] [place] [id number] [address] [place] [id number] Mar, [facility] [address] [place] [id number] [place] [phone] Mar, [facility] [address] [place] [id number] [place] [phone] Mar, Acute sinusitis J01.90 and O titis media, left H66.92 [facility] [address] [id number] [address] [place] [phone] Feb, [facility] [address] [id number] [address] [place] [id number] Feb, [facility] [address] [id number] [address] [place] [phone] Feb, [facility] [address] [id number] [address] [place] [phone] Feb, [facility] [address] [id number] [address] [place] [id number] Jan, [facility] [address] [facility] [id number] [address] [place] [id number] Jan, Diabetes 250.00 and Back higinio n 724.5 [facility] [address] [facility] [id number] [address] [place] [phone] Jan, [facility] [address] [facility] [id number] [address] [place] [id number] Dec, Diabetes 250.00 ; Benign ess ential hypertension 401.1 and Allergic rhinitis 477.9 [facility] [address] [facility] [id number] [address] [place] [phone] Dec, [facility] [address] [facility] [id number] [address] [place] [phone] Dec, [facility] [address] [facility] [id number] [address] [place] [id number] Dec, Psychosis 298.9 [facility] [address] [facility] [id number] [address] [place] [id number] Dec, Medication side effect 995.2 0 and Generalized anxiety disorder 300.02 [facility] [address] [facility] [id number] [address] [place] [id number] Dec, Acquired cognitive dysfuncti on 294.9 [facility] [address] [id number] [address] [place] [phone] Dec, [facility] [address] [id number] [address] [place] [id number] Dec, Unspecified myalgia and myos itis 729.1 and Generalized anxiety disorder 300.02 [facility] [address] [id number] [address] [place] [id number] Nov, [facility] [address] [id number] [address] [place] [phone] Nov, [facility] [address] [id number] [address] [place] [phone] Nov, [facility] [address] [facility] [id number] [address] [place] [id number] Nov, Upper respiratory infection 465.9 and Chronic airway obstruction, not elsewhere classified 496 [facility] [address] [id number] [address] [place] [id number] Nov, Hyponatremia 276.1 [facility] [address] [id number] [address] [place] [phone] Oct, [facility] [address] [facility] [id number] [address] [place] [phone] Oct, [facility] [address] [id number] [address] [place] [phone] Oct, [facility] [address] [facility] [id number] [address] [place] [phone] Oct, [facility] [address] [facility] [id number] [address] [place] [phone] Oct, Hyponatremia 276.1 [facility] [address] [facility] [id number] [address] [place] [phone] Oct, [facility] [address] [facility] [id number] [address] [place] [phone] Oct, [facility] [address] [id number] [address] [place] [phone] 02 Oct, 2014 Generalized anxiety disorder 300.02 [facility] [address] [id number] [address] [place] [id number] Oct, Generalized anxiety disorder 300.[address] [facility] [address] [id number] [address] [place] [address], [place] [phone] [address], [address] [facility] [address] [id number] [address] [place] [id number] Aug, [facility] [address] [id number] [address] [place] [address], [place] [id number] Jul, [facility] [address] [id number] [address] [place] [id number] Jul, [facility] [address] [id number] [address] [place] [id number] Jun, [facility] [address] [id number] [address] [place] [id number] Jun, [facility] [address] [id number] [address] [place] [address] [place] [id number] Jun, [facility] [address] [id number] [address] [place] [id number] Jun, [facility] [address] [id number] [address] [place] [id number] Jun, [facility] [address] [id number] [address] [place] [id number] May, [facility] [address] [id number] [address] [place] [id number] May, [facility] [address] [id number] [address] [place] [phone] Apr, [facility] [address] [id number] [address] [place] [phone] Apr, [facility] [address] [id number] [address] [place] [address], [place] [id number] 18 Apr, 2013 [facility] [address] [id number] [address] [place] [address], [place] [id number] Apr, [facility] [address] [id number] [address] [place] [address], [place] [id number] Apr, [facility] [address] [id number] [address] [place] [address], [place] [id number] Apr, [facility] [address] [id number] [address] [place] [address], [place] [id number] Apr, [facility] [address] [id number] [address] [place] [address], [place] [id number] Apr, [facility] [address] [id number] [address] [place] [address], [place] [id number] Feb, [facility] [address] [id number] [address] [place] [address], [place] [id number] Feb, [facility] [address] [id number] [address] [place] [address], [place] [id number] Jan, [facility] [address] [id number] [address] [place] [address], [place] [id number] Jan, [facility] [address] [id number] [address] [place] [address], [place] [id number] Dec, [facility] [address] [id number] [address] [place] [address], [place] [id number] Dec, [facility] [address] [id number] [address] [place] [address], [place] [id number] Dec, [facility] [address] [id number] [address] [place] [address], [place] [id number] Nov, [facility] [address] [id number] [address] [place] [address], [place] [id number] Nov, [facility] [address] [id number] [address] [place] [address], [place] [id number] Nov, [facility] [address] [id number] [address] [place] [address], [place] [id number] Oct, [facility] [address] [id number] [address] [place] [address], [place] [id number] Oct, [facility] [address] [id number] [address] [place] [address], [place] [id number] Oct, [facility] [address] [id number] [address] [place] [address], [place] [id number] September, [facility] [address] [id number] [address] [place] [address], [place] [id number] September, [facility] [address] [id number] [address] [place] [address], [place] [id number] September, [facility] [address] [id number] [address] [place] [address], [place] [id number] Aug, [facility] [address] [id number] [address] [place] [address], [place] [id number] Aug, [facility] [address] [id number] [address] [place] [address], [place] [id number] Aug, [facility] [address] [id number] [address] [place] [address], [place] [id number] 16 Aug, 2011 [facility] [address] [id number] [address] [place] [address], [place] [id number] Jul, [facility] [address] [id number] [address] [place] [address], [place] [id number] Jun, [facility] [address] [id number] [address] [place] [address], [place] [id number] 14 Jun, 2011 [facility] [address] [id number] [address] [place] [address], [place] [id number] 13 Jun, 2011 [facility] [address] [id number] [address] [place] [address], [place] [id number] 07 Jun, 2011 [facility] [address] [id number] [address] [place] [address], [place] [id number] 03 Jun, 2011 [facility] [address] [id number] [address] [place] [address], [place] [id number] May, [facility] [address] [id number] [address] [place] [address], [place] [id number] May, [facility] [address] [id number] [address] [place] [address], [place] [id number] May, [facility] [address] [id number] [address] [place] [address], [place] [id number] May, [facility] [address] [id number] [address] [place] [address], [place] [id number] Apr, [facility] [address] [id number] [address] [place] [address], [place] [id number] Apr, [facility] [address] [id number] [address] [place] [address], [place] [id number] Apr, [facility] [address] [id number] [address] [place] [address], [place] [id number] Mar, [facility] [address] [id number] [address] [place] [address], [place] [id number] Mar, [facility] [address] [id number] [address] [place] [address], [place] [id number] Mar, [facility] [address] [id number] [address] [place] [address], [place] [id number] Feb, [facility] [address] [id number] [address] [place] [address], [place] [id number] Feb, [facility] [address] [id number] [address] [place] [address], [place] [id number] Feb, [facility] [address] [id number] [address] [place] [address], [place] [id number] Nov, [facility] [address] [id number] [address] [place] [address], [place] [id number] September, [facility] [address] [id number] [address] [place] [id number] Aug, [facility] [address] [facility] [id number] [address] [place] [id number] Jul, [facility] [address] [facility] [id number] [address] [place] [id number] May, [facility] [address] [facility] [id number] [address] [place] [id number] Apr, [facility] [address] [facility] [id number] [address] [place] [id number] Apr, [facility] [address] [facility] [id number] [address] [place] [id number] Apr, [facility] [address] [facility] [id number] [address] [place] [id number] Apr, [facility] [address] [facility] [id number] [address] [place] [id number] Apr, IMMUNIZATIONS No Known Immunizations SOCIAL HISTORY Never Assessed REASON FOR VISIT Controlled Med Refill 04/28/18 PLAN OF CARE VITAL SIGNS MEDICATIONS Medication Instructions Dosage Frequency Start Date End Date Duration S tatus Adderall XR 30 MG Orally Once a day for depression 1 capsule in the morning Apr, 28 days Active [place] 7.5-325 MG Orally 3 times a day 1 tablet as needed 8h Apr, 28 days Active Lorazepam 1 MG Orally in the AM and noon and 4pm 1 tablet Jul, 28 days Active RESULTS No Results PROCEDURES [...]
--- OUTSIDE RECORDS SUMMARY | 2019-07-17 10:46 | XMS REPORT ---
Author Author Sujey GANDHI [facility] Address [address] [place] [address] Care Team Providers Care Independent Living Specialist Name Role Phone WHIT GANDHI Unavailable PROBLEMS Type Condition ICD9-CM Code LRS85-HQ Code Onset Dates Condition S tatus SNOMED Code Problem Hypertension I10 Active 5981576 3 Problem Diabetes E11.9 Active 56069830 Problem Other bipolar disorder F31.89 Active 25069409 Problem Anxiety disorder, unspecified F41.9 Active 398832752 Problem Fibromyalgia M79.7 Active 3119827 7 Problem Panic disorder with agoraphobia F40.01 Active 11661640 Problem Chronic obstructive pulmonary disease, unspecified J44.9 Active 40626907 Problem Lumbago with sciatica, left side M54.42 Active 917591860 Problem Lumbago with sciatica, right side M54.41 Active 452553062 Problem Fibrocystic disease of left breast N60.12 Active 87381221 Problem Other chronic pain G89.29 Active 8 1549242 Problem Fibrocystic disease of right breast N60.11 Active 81290134 Problem Bipolar 1 disorder, depressed, moderate F31.32 Active 16372466 Problem Arthritis M19.90 Active 7185774 Problem Irritable bowel syndrome with both constipation and diarrh ea K58.2 Active 80998240 Problem Irritable bowel syndrome with constipation K58.1 Active 814695889 Problem Tinnitus of right ear H93.11 Active 84978500 Problem Abnormal mammogram of right breast R92.8 Active 514335502 Problem Attention deficit hyperactiv ity disorder (ADHD), predominantly inattentive type F90.0 Active 79928826 Problem Bipolar affective disorder, remission status unspecified F31.9 Active 88010903 Problem Chronic post-traumatic stress disorder (PTSD) F43. 12 Active 136560513 Problem Essential tremor G25.0 Active 609 507870 Problem Schizoaffective disorder, bipolar type F25.0 Active 97569554 Problem Daytime somnolence R40.0 Active 1 80150500111 Problem Slow transit constipation K59.01 Acti ve 57833506 Problem Back pain M54.9 Active 917103669 Problem Bipolar 1 disorder, depressed, partial remission F 31.75 Active 00803354 Problem GERD (gastroesophageal reflux disease) K21.9 Active 298209166 Problem Mild persistent asthma without complication J45.30 Active 684813980 Problem Bipolar I disorder with depression F31.9 Active 31539524 Problem Acute non-recurrent maxillary sinusitis J01.00 Active 18007560 Problem Akathisia G25.71 Active 807271693 Problem Migraine without aura and without status migrain osus, not intractable G43.009 Active 760493439 Problem Moderate persistent asthma without complication J4 5.40 Active 321059130 Problem Panlobular emphysema J43.1 Active 2490654 ALLERGIES Substance Reaction Event Type Date Status Penicillin V Potassium Unknown Drug Allergy Mar, Activ e Effexor anaphylaxis Drug Allergy Mar, Active Darvocet-N 50 Unknown Drug Allergy Mar, Active Cefdinir Swelling Drug Allergy Mar, Active Benadryl vomiting/swelling Drug Allergy Mar, Active ENCOUNTERS Encounter Location Date Diagnosis [facility] [address] [facility] [id number] [address] [place] [phone] May, [facility] [address] [facility] [id number] [address] [place] [phone] Apr, [facility] [address] [facility] [id number] [address] [place] [address] Mar, Tinnitus of right ear H93.11 [facility] [address] [facility] [id number] [address] [place] [address] Mar, [facility] [address] [facility] [id number] [address] [place] [phone] Mar, Anxiety disorder, unspecifie d F41.9 ; Other chronic pain G89.29 and Daytime somnolence R40.0 [facility] [address] [facility] [id number] [address] [place] [address] Mar, Irritable bowel syndrome wit h both constipation and diarrhea K58.2 [facility] [address] [facility] [id number] [address] [place] [address] Mar, [facility] [address] [facility] [id number] [address] [place] [phone] Mar, Hypertension I10 [facility] [address] [facility] [id number] [address] [place] [address] Mar, [facility] [address] [facility] [id number] [address] [place] [phone] Mar, [facility] [address] [facility] [id number] [address] [place] [phone] Mar, [facility] [address] [place] [id number] [place] [address] Mar, Diabetes E11.9 [facility] [address] [place] [id number] [place] [phone] Mar, [facility] [address] [place] [id number] [place] [address] Feb, Daytime somnolence R40.0 and Anxiety disorder, unspecified F41.9 [facility] [address] [place] [id number] [address] [place] [phone] Feb, [facility] [address] [place] [id number] [address] [place] [address] Feb, [facility] [address] [place] [id number] [address] [place] [address] Feb, Tremors of nervous system R2 5.1 and Acute swimmer''s ear of right side H60.331 [facility] [address] [place] [id number] [address] [place] [address] Feb, Cerebrovascular accident (CV A) due to occlusion of right cerebellar artery I63.541 and Hypertension I10 [facility] [address] [place] [id number] [address] [place] [phone] Feb, [facility] [address] [place] [id number] [address] [place] [address] 16 Feb, 2018 Cerebrovascular accident (CV A) due to occlusion of right cerebellar artery I63.541 [facility] ANEESH [address] [facility] [address] [id number] [id number] Feb, Hyponatremia E87.1 [facility] [address] [facility] [id number] [address] [place] [address] 09 Feb, 2018 [facility] [address] [facility] [id number] [address] [place] [address] 04 Feb, 2018 Daytime somnolence R40.0 [facility] [address] [facility] [id number] [address] [place] [address] 03 Feb, 2018 [facility] [address] [facility] [id number] [address] [place] [phone] 28 Jan, 2018 [facility] [address] [place] [id number] [address] [place] [address] 28 Jan, 2018 [facility] [address] [facility] [id number] [address] [place] [phone] 27 Jan, 2018 Chronic obstructive pulmonar y disease, unspecified J44.9 and Anxiety disorder, unspecified F41.9 [facility] [address] [place] [id number] [address] [place] [phone] 27 Jan, 2018 Hypertension I10 ; Fibromyal medhat M79.7 and Lumbago with sciatica, left side M54.42 [facility] [address] [facility] [id number] [address] [place] [phone] 26 Jan, 2018 [facility] [address] [facility] [id number] [address] [place] [phone] 20 Jan, 2018 Cerebrovascular accident (CV A) due to occlusion of right cerebellar artery I63.541 [facility] [address] [facility] [id number] [address] [place] [phone] 19 Jan, 2018 [facility] [address] [place] [id number] [address] [place] [phone] 13 Jan, 2018 Arthritis M19.90 [place] [address] [id number] [address] [place] [address] Jan, [place] [address] [id number] [address] [place] [phone] 04 Jan, 2018 Abnormal mammogram of right breast R92.8 [place] [address] [id number] [address] [place] [address] Dec, Daytime somnolence R40.0 and Right otitis media with effusion H65.91 [place] [address] [id number] [address] [place] [address] Dec, [place] [address] [id number] [address] [place] [phone] Dec, Cerebrovascular accident (CV A) due to occlusion of right cerebellar artery I63.541 [place] [address] [id number] [address] [place] [address] Dec, [place] [address] [id number] [address] [place] [address] Dec, [place] [address] [facility] [id number] [address] [place] [phone] Nov, Bipolar 1 disorder, depresse d, partial remission F31.75 and Panic disorder with agoraphobia F40.01 [place] [address] [id number] [address] [place] [address] Nov, Panlobular emphysema J43.1 [place] [address] [id number] [address] [place] [address] Nov, Cerebrovascular accident (CV A) due to occlusion of right cerebellar artery I63.541 and Acute non-recurrent maxillary sinusitis J01.00 [place] [address] [id number] [address] [place] [address] Nov, Panlobular emphysema J43.1 [place] [address] [id number] [address] [place] [phone] Nov, [facility] [address] [id number] [address] [place] [phone] Nov, [facility] [address] [facility] [id number] [address] [place] [phone] Nov, [facility] [address] [facility] [id number] [address] [place] [phone] Nov, [facility] [address] [facility] [id number] [address] [place] [phone] Nov, [facility] [address] [facility] [id number] [address] [place] [phone] Nov, [facility] [address] [facility] [id number] [address] [place] [phone] Nov, [facility] [address] [facility] [id number] [address] [place] [address] Nov, Mild persistent asthma witho ut complication J45.30 and Irritable bowel syndrome with both constipation and diarrhea K58.2 [facility] [address] [facility] [id number] [address] [place] [phone] Nov, [facility] [address] [facility] [id number] [address] [place] [phone] Oct, [facility] [address] [facility] [id number] [address] [place] [phone] Oct, [facility] [address] [facility] [id number] [address] [place] [phone] Oct, Type 2 diabetes mellitus wit h diabetic neuropathy, 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 ; Diabetes E11.9 ; Slow transit constipation K59.01 ; Edema of both legs R60.0 and Dysfunction of right eustachian tube H69.81 [facility] [address] [facility] [id number] [address] [place] [phone] Oct, Frequent headaches R51 [facility] [address] [facility] [id number] [address] [place] [address] Oct, [facility] [address] [id number] [address] [place] [phone] Oct, [facility] [address] [id number] [address] [place] [phone] Oct, [facility] [address] [id number] [address] [place] [phone] Oct, [facility] [address] [id number] [address] [place] [phone] Oct, [facility] [address] [id number] [address] [place] [phone] Oct, [facility] [address] [facility] [id number] [address] [place] [phone] Oct, [facility] [address] [facility] [id number] [address] [place] [phone] Oct, [facility] [address] [facility] [id number] [address] [place] [phone] September, Frequent headaches R51 [facility] [address] [facility] [id number] [address] [place] [phone] September, Bilateral otitis media with effusion H65.93 ; Dizziness R42 and Essential tremor G25.0 [facility] [address] [facility] [id number] [address] [place] [phone] September, Chronic obstructive pulmonar y disease, unspecified COPD type J44.9 [facility] [address] [facility] [id number] [address] [place] [phone] September, Chronic obstructive pulmonar y disease, unspecified COPD type J44.9 [facility] [address] [facility] [id number] [address] [place] [address] September, Migraine without aura and wi thout status migrainosus, not intractable G43.009 [facility] [address] [facility] [id number] [address] [place] [phone] September, [facility] [address] [facility] [id number] [address] [place] [phone] September, [facility] [address] [id number] [address] [place] [phone] September, [facility] [address] [facility] [id number] [address] [place] [phone] September, Frequent headaches R51 [facility] [address] [id number] [address] [place] [phone] Aug, [facility] [address] [facility] [id number] [address] [place] [address] Aug, Breast mass, right N63.10 [facility] [address] [facility] [id number] [address] [place] [address] Aug, Breast lump N63.0 [facility] [address] [facility] [id number] [address] [place] [phone] Aug, [facility] [address] [facility] [id number] [address] [place] [address] Aug, Bipolar affective disorder, remission status unspecified F31.9 and Diabetes E11.9 [facility] [address] [facility] [id number] [address] [place] [address] Aug, Diabetes E11.9 ; Schizoaffec tive disorder, bipolar type F25.0 ; Pharyngitis due to other organism J02.8 ; Panlobular emphysema J43.1 and Irritable bowel syndrome with both constipation and diarrhea K58.2 [facility] [address] [facility] [id number] [address] [place] [phone] Aug, Abnormal mammogram R92.8 [facility] [address] [facility] [id number] [address] [place] [phone] Aug, [facility] [address] [facility] [id number] [address] [place] [phone] Aug, Bipolar 1 disorder, depresse d, moderate F31.32 ; Panic disorder with agoraphobia F40.01 and Chronic post-traumatic stress disorder (PTSD) F43.12 [facility] [address] [id number] [address] [place] [phone] Aug, [facility] [address] [id number] [address] [place] [phone] Aug, [facility] [address] [facility] [id number] [address] [place] [phone] Aug, [facility] [address] [id number] [address] [place] [phone] Jul, [facility] [address] [facility] [id number] [address] [place] [address] Jul, Mild persistent asthma witho ut complication J45.30 [facility] [address] [facility] [id number] [address] [place] [address] Jul, Mild persistent asthma witho ut complication J45.30 [facility] [address] [facility] [id number] [address] [place] [address] Jul, Bipolar affective disorder, remission status unspecified F31.9 ; Diabetes E11.9 and Irritable bowel syndrome with constipation K58.1 [facility] [address] [facility] [id number] [address] [place] [phone] Jul, [facility] [address] [facility] [id number] [address] [place] [phone] Jul, [facility] [address] [facility] [id number] [address] [place] [phone] Jul, Frequent headaches R51 [facility] [address] [facility] [id number] [address] [place] [phone] Jul, [facility] [address] [facility] [id number] [address] [place] [phone] Jul, [facility] [address] [facility] [id number] [address] [place] [phone] Jul, [facility] [address] [facility] [id number] [address] [place] [phone] 05 Jul, 2017 Frequent headaches R51 ; Fib rocystic disease of left breast N60.12 ; Fibrocystic disease of right breast N60.11 and Diabetes E11.9 [facility] [address] [place] [id number] [address] [place] [phone] 02 Jul, 2017 [place] [address] [address] Jul, [place] [address] [id number] 21 Jun, 2017 Exudative tonsillitis J03.90 [place] [address] [phone] 20 Jun, 2017 [place] [address] [phone] 19 Jun, 2017 [place] [address] [phone] 15 Jun, 2017 Mild persistent asthma witho ut complication J45.30 ; Chronic obstructive pulmonary disease, unspecified COPD type J44.9 and Exudative tonsillitis J03.90 [place] [address] [place] [id number] [address] [place] [address] 13 Jun, 2017 Encounter for immunization Z 23 [place] [address] [id number] 12 Jun, 2017 [place] [address] [place] [id number] [address] [place] [address] 12 Jun, 2017 [place] [address] [address] 09 Jun, 2017 [facility] [address] [place] [id number] [address] [place] [address] 06 Jun, 2017 Tonsillitis J03.90 [place] [address] [id number] 05 Jun, 2017 [facility] [address] [facility] [id number] [address] [place] [address] 03 Jun, 2017 Acute non-recurrent maxillar y sinusitis J01.00 [facility] [address] [facility] [id number] [address] [place] [phone] 02 Jun, 2017 [facility] [address] [place] [id number] [address] [place] [phone] May, [facility] [address] [facility] [id number] [address] [place] [phone] May, [facility] [address] [facility] [id number] [place] [phone] May, GERD (gastroesophageal reflu x disease) K21.9 [facility] [address] [place] [id number] [address] [place] [phone] May, Migraine without aura and wi thout status migrainosus, not intractable G43.009 [facility] [address] [facility] [id number] [address] [place] [address] May, [facility] [address] [place] [id number] [place] [address] May, [facility] [address] [place] [id number] [address] [place] [address] May, Panlobular emphysema J43.1 a nd Acute non-recurrent maxillary sinusitis J01.00 [facility] [address] [facility] [id number] [address] [place] [address] May, Bipolar 1 disorder, depresse d, moderate F31.32 ; Panic disorder with agoraphobia F40.01 and Akathisia G25.71 [facility] [address] [facility] [id number] [address] [place] [phone] Apr, [facility] [address] [address] Apr, [facility] [address] [id number] [address] [place] [phone] 13 Apr, 2017 Acute non-recurrent maxillar y sinusitis J01.00 [facility] [address] [id number] [address] [place] [phone] 07 Apr, 2017 Panlobular emphysema J43.1 [facility] [address] [id number] [address] [place] [phone] 04 Apr, 2017 [facility] [address] [id number] [address] [place] [phone] 04 Apr, 2017 Exudative tonsillitis J03.90 and Sore throat J02.9 [facility] [address] [id number] [address] [place] [phone] 17 Mar, 2017 [facility] [address] [facility] [id number] [address] [place] [phone] 15 Mar, 2017 Acute non-recurrent maxillar y sinusitis J01.00 [facility] [address] [id number] [address] [place] [phone] 13 Mar, 2017 [facility] [address] [id number] [address] [place] [phone] 09 Mar, 2017 Panlobular emphysema J43.1 a nd Diabetes E11.9 [facility] [address] [id number] [address] [place] [phone] Mar, [facility] [address] [id number] [address] [place] [phone] 24 Feb, 2017 Wheezing R06.2 and Acute rec urrent pansinusitis J01.41 [facility] [address] [id number] [address] [place] [phone] Feb, [facility] [address] [facility] [id number] [address] [place] [phone] Feb, Acute non-recurrent maxillar y sinusitis J01.00 [facility] [address] [id number] [address] [place] [phone] 16 Feb, 2017 Chronic obstructive pulmonar y disease, unspecified J44.9 [facility] [address] [id number] [address] [place] [phone] 02 Feb, 2017 Hypoxemia R09.02 and Chronic obstructive pulmonary disease, unspecified J44.9 [facility] [address] [facility] [id number] [address] [place] [phone] 28 Jan, 2017 Bipolar 1 disorder, depresse d, moderate F31.32 ; Panic disorder with agoraphobia F40.01 ; Chronic post-traumatic stress disorder (PTSD) F43.12 ; Diabetes E11.9 and Moderate persistent asthma without complication J45.40 [facility] [address] [id number] [address] [place] [phone] 22 Jan, 2017 [facility] [address] [id number] [address] [place] [phone] Jan, Acute non-recurrent maxillar y sinusitis J01.00 [facility] [address] [id number] [address] [place] [phone] 18 Jan, 2017 [facility] [address] [id number] [address] [place] [phone] 18 Jan, 2017 [facility] [address] [id number] [address] [place] [phone] Jan, [facility]40 and Hypoxemia R09.02 [facility] [address] [id number] [address] [place] [phone] Jan, Moderate persistent asthma w ithout complication J45.40 and Hypoxemia R09.02 [facility] [address] [id number] [address] [place] [phone] Jan, [facility] [address] [facility] [id number] [address] [place] [phone] Dec, Acute non-recurrent maxillar y sinusitis J01.00 [facility] [address] [id number] [address] [place] [phone] Dec, Chronic obstructive pulmonar y disease, unspecified J44.9 [facility] [address] [facility] [id number] [address] [place] [phone] Dec, [facility] [address] [facility] [id number] [address] [place] [phone] Dec, Mild persistent asthma witho ut complication J45.30 and Other chronic pain G89.29 [facility] [address] [id number] [address] [place] [phone] Nov, [facility] [address] [id number] [address] [place] [phone] Nov, Acute non-recurrent maxillar y sinusitis J01.00 [facility] [address] [place] [id number] [address] [place] [phone] Nov, [facility] [address] [place] [id number] [address] [place] [phone] Nov, [facility] [address] [place] [id number] [address] [place] [phone] Oct, [facility] [address] [place] [id number] [address] [place] [phone] Oct, Bipolar 1 disorder, depresse d, partial remission F31.75 ; Panic disorder with agoraphobia F40.01 and Chronic post-traumatic stress disorder (PTSD) F43.12 [facility] [address] [place] [id number] [address] [place] [address] Oct, Acute non-recurrent maxillar y sinusitis J01.00 [facility] [address] [facility] [id number] [address] [place] [phone] Oct, [facility] [address] [place] [id number] [address] [place] [phone] Oct, Diabetes E11.9 [facility] [address] [place] [id number] [address] [place] [phone] September, Diabetes E11.9 [facility] [address] [facility] [id number] [address] [place] [phone] September, Diabetes E11.9 and Sinus tac hycardia R00.0 [facility] [address] [id number] [address] [place] [phone] September, [facility] [address] [facility] [id number] [address] [place] [phone] September, [facility] [address] [facility] [id number] [address] [place] [phone] Aug, Diabetes E11.9 and Lumbago w ith sciatica, right side M54.41 [facility] [address] [facility] [id number] [address] [place] [phone] Aug, [facility] [address] [facility] [id number] [address] [place] [phone] Jul, Bipolar 1 disorder, depresse d, moderate F31.32 ; Panic disorder with agoraphobia F40.01 and Chronic post-traumatic stress disorder (PTSD) F43.12 [facility] [address] [facility] [id number] [address] [place] [phone] Jul, Sore throat J02.9 [facility] [address] [facility] [id number] [address] [place] [phone] Jul, [facility] [address] [facility] [id number] [address] [place] [phone] Jul, [facility] [address] [facility] [id number] [address] [place] [phone] Jul, [facility] [address] [facility] [id number] [address] [place] [phone] Jul, [facility] [address] [facility] [id number] [address] [place] [phone] Jul, Sore throat J02.9 and Pharyn gitis, unspecified etiology J02.9 [facility] [address] [id number] [address] [place] [phone] Jun, [facility] [address] [id number] [address] [place] [phone] Jun, Diabetes E11.9 [facility] [address] [id number] [address] [place] [phone] Jun, [facility] [address] [id number] [address] [place] [id number] Jun, [facility] [address] [id number] [address] [place] [phone] Jun, [facility] [address] [id number] [address] [place] [phone] Jun, [facility] [address] [id number] [address] [place] [phone] Jun, [facility] [address] [id number] [address] [place] [phone] Jun, [facility] [address] [id number] [address] [place] [phone] Jun, [facility] [address] [id number] [address] [place] [phone] Jun, [facility] [address] [id number] [address] [place] [phone] May, Diabetes E11.9 ; Other chron ic pain G89.29 ; Acute recurrent maxillary sinusitis J01.01 ; Bipolar I disorder with depression F31.9 and Anxiety disorder, unspecified F41.9 [facility] [address] [id number] [address] [place] [phone] May, [facility] [address] [id number] [address] [place] [phone] May, Diabetes E11.9 ; Bipolar I d isorder with depression F31.9 ; Anxiety disorder, unspecified F41.9 ; Other chronic pain G89.29 and Acute recurrent maxillary sinusitis J01.01 [place] [address] [id number] [address] [place] [phone] May, [place] [address] [id number] [address] [place] [phone] May, Attention deficit hyperactiv ity disorder (ADHD), predominantly inattentive type F90.0 [place] [address] [facility] [id number] [address] [place] [phone] May, [place] [address] [id number] [address] [place] [address] Apr, Attention deficit hyperactiv ity disorder (ADHD), predominantly inattentive type F90.0 and Non-seasonal allergic rhinitis due to other allergic trigger J30.89 [place] [address] [facility] [id number] [address] [place] [phone] Apr, Bipolar 1 disorder, depresse d, moderate F31.32 ; Panic disorder with agoraphobia F40.01 and Chronic post-traumatic stress disorder (PTSD) F43.12 [place] [address] [facility] [id number] [address] [place] [phone] Apr, Dental examination Z01.20 [place] [address] [facility] [id number] [address] [place] [phone] Mar, [place] [address] [facility] [id number] [address] [place] [phone] Mar, [place] [address] [facility] [id number] [address] [place] [phone] 17 Mar, 2016 Bipolar I disorder with depr ession F31.9 and Anxiety disorder, unspecified F41.9 [place] [address] [facility] [id number] [address] [place] [phone] 08 Mar, 2016 Panic disorder with agorapho syd F40.01 ; Bipolar 1 disorder, depressed, moderate F31.32 and Chronic post-traumatic stress disorder (PTSD) F43.12 [place] [address] [facility] [id number] [address] [place] [phone] Mar, [facility] [address] [facility] [id number] [address] [place] [phone] Mar, Dental caries K02.9 [facility] [address] [facility] [id number] [address] [place] [phone] 24 Feb, 2016 Lumbago with sciatica, left side M54.42 ; Lumbago with sciatica, right side M54.41 and Other chronic pain G89.29 [place] [address] [facility] [id number] [address] [place] [phone] 17 Feb, 2016 [place] [address] [place] [id number] [place] [phone] 14 Feb, 2016 [place] [address] [place] [id number] [place] [phone] 13 Feb, 2016 Bipolar I disorder with depr ession F31.9 ; PTSD (post-traumatic stress disorder) F43.10 and Mood disorder F39 [place] [address] [place] [id number] [address] [place] [phone] Feb, [place] [address] [place] [id number] [place] [phone] 11 Feb, 2016 Dental examination Z01.20 [facility] [address] [place] [id number] [place] [phone] 07 Feb, 2016 [facility] [address] [place] [id number] [address] [place] [phone] 03 Feb, 2016 Acute bronchitis, unspecifie d organism J20.9 [facility] [address] [facility] [id number] [address] [place] [phone] 26 Jan, 2016 Mood disorder F39 ; Migraine without aura and without status migrainosus, not intractable G43.009 ; Irritable bowel syndrome, unspecified type K58.9 ; Diabetes E11.9 and Encounter for immunization Z23 [facility] [address] [place] [id number] [address] [place] [phone] Jan, [facility] [address] [facility] [id number] [address] [place] [phone] Jan, [facility] [address] [facility] [id number] [address] [place] [phone] Jan, [facility] [address] [facility] [id number] [address] [place] [phone] Jan, [facility] [address] [facility] [id number] [address] [place] [phone] Jan, [facility] [address] [facility] [id number] [address] [place] [phone] Dec, Bipolar I disorder with depr ession F31.9 ; PTSD (post-traumatic stress disorder) F43.10 and Panic disorder with agoraphobia F40.01 [facility] [address] [facility] [id number] [address] [place] [phone] Dec, Chronic obstructive pulmonar y disease, unspecified COPD type J44.9 ; Tremor R25.1 and Anxiety F41.9 [facility] [address] [facility] [id number] [address] [place] [phone] Dec, [facility] [address] [facility] [id number] [address] [place] [phone] Nov, Tremors of nervous system R2 5.1 and Cramping of feet R25.2 [facility] [address] [facility] [id number] [address] [place] [phone] Nov, [facility] [address] [facility] [id number] [address] [place] [phone] Nov, [facility] [address] [facility] [id number] [address] [place] [phone] Oct, Chronic obstructive pulmonar y disease, unspecified J44.9 [facility] [address] [facility] [id number] [address] [place] [phone] Oct, [facility] [address] [place] [id number] [address] [place] [phone] Oct, Tremor R25.1 [facility] [address] [place] [id number] [address] [place] [phone] Oct, Bipolar I disorder with depr ession F31.9 ; Diabetes E11.9 ; PTSD (post-traumatic stress disorder) F43.10 and Panic disorder with agoraphobia F40.01 [place] [address] [place] [id number] [address] [place] [phone] Oct, Mood disorder F39 [place] [address] [place] [id number] [place] [phone] September, [place] [address] [phone] September, Diabetes E11.9 ; Bipolar I d isorder with depression F31.9 ; PTSD (post-traumatic stress disorder) F43.10 and Panic disorder with agoraphobia F40.01 [place] [id number] [place] [address] September, Mood disorder F39 ; Schizoaf fective disorder, unspecified type F25.9 ; Arthritis M19.90 ; Tremor R25.1 ; Acute non-recurrent frontal sinusitis J01.10 and Blood in stool K92.1 [place] [id number] [place] [address] September, [place] [address] [place] [id number] [address] [place] [id number] September, Chronic obstructive pulmonar y disease, unspecified J44.9 [place] [address] [place] [id number] [address] [place] [phone] September, Diabetes E11.9 [place] [address] [place] [id number] [address] [place] [phone] Aug, Other bipolar disorder F31.8 9 and Anxiety disorder, unspecified F41.9 [place] [address] [place] [id number] [address] [place] [phone] Aug, [facility] [address] [id number] [address] [place] [phone] Aug, Diabetes E11.9 [facility] [address] [id number] [address] [place] [phone] 18 Aug, 2015 [facility] [address] [id number] [address] [place] [phone] 14 Aug, 2015 Diabetes E11.9 ; Fatigue R53 .83 and Dizziness R42 [facility] [address] [id number] [address] [place] [phone] 13 Aug, 2015 Other bipolar disorder F31.8 9 [facility] [address] [facility] [id number] [address] [place] [phone] 07 Aug, 2015 Generalized anxiety disorder F41.1 [facility] [address] [facility] [id number] [address] [place] [phone] Aug, Other bipolar disorder F31.8 9 and Anxiety disorder, unspecified F41.9 [facility] [address] [id number] [address] [place] [phone] Aug, [facility] [address] [facility] [id number] [address] [place] [phone] Jul, [facility] [address] [id number] [address] [place] [phone] Jul, [facility] [address] [id number] [address] [place] [phone] Jul, Bronchitis J40 [facility] [address] [id number] [address] [place] [phone] Jul, Anxiety disorder F41.9 [facility] [address] [facility] [id number] [address] [place] [phone] Jul, Other bipolar disorder F31.8 9 and Anxiety disorder, unspecified F41.9 [facility] [address] [id number] [address] [place] [phone] 18 Jul, 2015 Other bipolar disorder F31.8 9 and Fibromyalgia M79.7 [facility] [address] [address] Jul, [facility] [address] [place] [id number] [place] [phone] Jul, [facility] [address] [address] Jul, [facility] [address] [place] [id number] [place] [phone] Jul, Other bipolar disorder F31.8 9 and Anxiety disorder, unspecified F41.9 [facility] [address] [id number] Jun, GERD (gastroesophageal reflu x disease) K21.9 [facility] [address] [address] Jun, [facility] [address] [address] May, [facility] [address] [address] May, Diabetes E11.9 ; Back pain M 54.9 ; GERD (gastroesophageal reflux disease) K21.9 ; Hypertension I10 and Peripheral neuropathy G62.9 [facility] [address] [address] Mar, [facility] [address] [address] Mar, [place] [address] [address] Mar, Acute sinusitis J01.90 and O titis media, left H66.92 [facility] [address] [phone] Feb, [facility] [address] [facility] [id number] [address] [place] [phone] Feb, [facility] [address] [facility] [id number] [address] [place] [phone] Feb, [facility] [address] [facility] [id number] [address] [place] [phone] Feb, [facility] [address] [facility] [id number] [address] [place] [phone] Jan, [facility] [address] [facility] [id number] [address] [place] [address] Jan, Diabetes 250.00 and Back higinio n 724.5 [facility] [address] [facility] [id number] [address] [place] [phone] Jan, [facility] [address] [facility] [id number] [address] [place] [phone] Dec, Diabetes 250.00 ; Benign ess ential hypertension 401.1 and Allergic rhinitis 477.9 [facility] [address] [facility] [id number] [address] [place] [phone] Dec, [facility] [address] [facility] [id number] [address] [place] [phone] Dec, [facility] [address] [facility] [id number] [address] [place] [phone] Dec, Psychosis 298.9 [facility] [address] [facility] [id number] [address] [place] [phone] Dec, Medication side effect 995.2 0 and Generalized anxiety disorder 300.02 [facility] [address] [facility] [id number] [address] [place] [phone] Dec, Acquired cognitive dysfuncti on 294.9 [facility] [address] [facility] [id number] [address] [place] [address] Dec, [facility] [address] [place] [id number] [address] [place] [phone] Dec, Unspecified myalgia and myos itis 729.1 and Generalized anxiety disorder 300.02 [facility] [address] [facility] [id number] [address] [place] [phone] Nov, [facility] [address] [facility] [id number] [address] [place] [phone] Nov, [facility] [address] [facility] [id number] [address] [place] [phone] Nov, [facility] [address] [facility] [id number] [address] [place] [phone] Nov, Upper respiratory infection 465.9 and Chronic airway obstruction, not elsewhere classified 496 [facility] [address] [facility] [id number] [address] [place] [phone] Nov, Hyponatremia 276.1 [facility] [address] [facility] [id number] [address] [place] [phone] Oct, [facility] [address] [facility] [id number] [address] [place] [phone] Oct, [facility] [address] [facility] [id number] [address] [place] [phone] Oct, [facility] [address] [facility] [id number] [address] [place] [phone] Oct, [facility] [address] [facility] [id number] [address] [place] [phone] Oct, Hyponatremia 276.1 [facility] [address] [facility] [id number] [address] [place] [phone] Oct, [facility] [address] [facility] [id number] [address] [place] [phone] Oct, [facility] [address] [facility] [id number] [address] [place] [phone] Oct, Generalized anxiety disorder 300.02 [facility] [address] [facility] [id number] [address] [place] [phone] Oct, Generalized anxiety disorder 300.02 and Diabetes 250.00 [facility] [address] [id number] [address] [place] [address], [place] [phone] 14 Aug, 2014 [facility] [address] [id number] [address] [place] [phone] Aug, [facility] [address] [id number] [address] [place] [address], [place] [address] Jul, [facility] [address] [id number] [address] [place] [phone] Jul, [facility] [address] [id number] [address] [place] [address], [place] [id number] Jun, [facility] [address] [id number] [address] [place] [address], [place] [address] Jun, [facility] [address] [id number] [address] [place] [address], [place] [address] Jun, [facility] [address] [id number] [address] [place] [address], [place] [address] Jun, [facility] [address] [id number] [address] [place] [address], [place] [address] Jun, [facility] [address] [id number] [address] [place] [phone] May, [facility] [address] [id number] [address] [place] [phone] May, [facility] [address] [id number] [address] [place] [phone] Apr, [facility] [address] [id number] [address] [place] [phone] Apr, [facility] [address] [id number] [address] [place] [phone] Apr, [facility] [address] [id number] [address] [place] [phone] Apr, [facility] [address] [id number] [address] [place] [address], [place] [phone] Apr, [facility] [address] [id number] [address] [place] [address], [place] [address] Apr, [facility] [address] [id number] [address] [place] [address], [place] [address] Apr, [facility] [address] [id number] [address] [place] [address], [place] [address] Apr, [facility] [address] [id number] [address] [place] [address], [place] [address] Feb, [facility] [address] [id number] [address] [place] [address], [place] [address] Feb, [facility] [address] [id number] [address] [place] [address], [place] [address] Jan, [facility] [place] [address] [id number] [address] [place] [address], [place] [address] Jan, [facility] [place] [address] [id number] [address] [place] [address], [place] [address] Dec, [facility] [place] [address] [id number] [address] [place] [address], [place] [address] Dec, [facility] [address] [id number] [address] [place] [address], [place] [address] Dec, [facility] [place] [address] [id number] [address] [place] [address], [place] [address] Nov, [facility] [address] [id number] [address] [place] [address], [place] [address] Nov, [facility] [address] [id number] [address] [place] [address], [place] [address] Nov, [facility] [address] [id number] [address] [place] [address], [place] [address] Oct, [facility] [address] [id number] [address] [place] [address], [place] [address] Oct, [facility] [address] [id number] [address] [place] [address], [place] [address] Oct, [facility] [address] [id number] [address] [place] [address], [place] [address] September, [facility] [address] [id number] [address] [place] [address], [place] [address] September, [facility] [address] [id number] [address] [place] [address], [place] [address] September, [facility] [address] [id number] [address] [place] [address], [place] [address] Aug, [facility] [address] [id number] [address] [place] [address], [place] [address] Aug, [facility] [place] [address] [id number] [address] [place] [address], [place] [address] Aug, [facility] [address] [id number] [address] [place] [address], [place] [address] 16 Aug, 2011 [facility] [place] [address] [id number] [address] [place] [address], [place] [address] Jul, [facility] [address] [id number] [address] [place] [address], [place] [address] Jun, [facility] [address] [id number] [address] [place] [address], [place] [address] 14 Jun, 2011 [facility] [address] [id number] [address] [place] [address], [place] [address] 13 Jun, 2011 [facility] [address] [id number] [address] [place] [address], [place] [address] 07 Jun, 2011 [facility] [address] [id number] [address] [place] [address], [place] [address] 03 Jun, 2011 [facility] [address] [id number] [address] [place] [address], [place] [address] May, [facility] [address] [id number] [address] [place] [address], [place] [address] May, [facility] [address] [id number] [address] [place] [address], [place] [address] May, [facility] [address] [id number] [address] [place] [address], [place] [address] May, [facility] [address] [id number] [address] [place] [address], [place] [address] Apr, [facility] [address] [id number] [address] [place] [address], [place] [address] Apr, [facility] [address] [id number] [address] [place] [address], [place] [address] Apr, [facility] [address] [id number] [address] [place] [address], [place] [address] Mar, [facility] [address] [id number] [address] [place] [address], [place] [address] Mar, [facility] [address] [id number] [address] [place] [address], [place] [address] Mar, [facility] [address] [id number] [address] [place] [address], [place] [address] Feb, [facility] [address] [id number] [address] [place] [address], [place] [address] Feb, [facility] [address] [id number] [address] [place] [address], [place] [address] Feb, [facility] [address] [id number] [address] [place] [address], [place] [address] Nov, [facility] [address] [id number] [address] [place] [address], [place] [address] September, [facility] [address] [id number] [address] [place] [address], [place] [address] Aug, [facility] [address] [id number] [address] [place] [address], [place] [address] 14 Jul, 2010 [facility] [address] [id number] [address] [place] [address] May, [facility] [address] [id number] [address] [place] [address] Apr, [facility] [address] [id number] [address] [place] [address] Apr, [facility] [address] [id number] [address] [place] [address] Apr, [facility] [address] [id number] [address] [place] [address] Apr, [facility] [address] [facility] [id number] [address] [place] [address] Apr, IMMUNIZATIONS No Known Immunizations SOCIAL HISTORY Never Assessed REASON FOR VISIT Pain management (chronic) - Umair BASURTO PLAN OF CARE VITAL SIGNS Height 66 in 2018-04-07 Weight 101.2 lbs 2018-04-07 Temperature 98.1 degrees Fahrenheit 2018-04-07 Heart Rate 88 bpm 2018-04-07 Respiratory Rate 20 2018-04-07 BMI 16.33 kg/m2 2018-04-07 Blood pressure systolic 128 mmHg 2018-04-07 Blood pressure diastolic 60 mmHg 2018-04-07 MEDICATIONS Medication Instructions Dosage Frequency Start Date End Date Duration S tatus Spironolactone 25 MG Orally Once a day 1 tablet 24h Mar, 30 days Active Amitiza 8 MCG Orally Twice a day 1 capsule with food 12h 2017Jul, 30 day(s) Active MiraLax - Orally 3 times a day until you have a BM then Reduce to once daily. 17 grams mixed with 8 oz of fluid 30 days Active Metoprolol Tartrate 50 mg Orally Twice a day TAKE ONE TABLE T BY MOUTH TWICE DAILY WITH FOOD 12h Active Benztropine Mesylate 0.5 MG Orally 3 times a day-Q AM, 4pm and bedtime for restlessness 1 tablet 08 Mar, 2016 Active Trazodone HCl 100 mg Orally for sleep 1 tablet at bedtime Jan Active Levocetirizine Dihydrochloride 5 MG Orally Once a day 1 tablet i n the evening 24h Dec, 30 day(s) Active Glucosamine 1000 MG Orally Once a day 2 capsules 24h Active Lisinopril 40 mg Orally Once a day 1 tablet 24h Active Yvhnoiivpe-UART-Lxrrgkej 50-325-40 MG Orally 3 times a day 1 cap yg as needed 8h Jun, Not-Taking Aspir-81 81 MG Orally Once a day 1 tablet 24h Active Metformin HCl 1000 MG Orally Twice a day 1 tablet with meals 12h Aug, 30 day(s) Active Xopenex 1.25 MG/3ML Inhalation 4 times a day prn 3 ml Dec, 30 days Active Nexium 40 mg 1 capsule 24h Active Loxapine Succinate 10 mg Orally twice a day for mood 1 capsule Active SudoGest 60 MG Orally every 6 hrs 1 tablet as needed 6h Mar, 8 Active Insulin Pen Needle 32G X 6 MM subcutaneously Once a day use with pre-filled syringes 24h Oct, Active Multivitamin Adult - Act minoo Anoro Ellipta 62.5-25 MCG/INH Inhalation Once a day 1 puff 24h 18 2017 Active Pulmicort Flexhaler 90 mcg/act Inhalation Twice a day 1 puff 12h Nov, Active Guaifenesin 400 mg Orally every 4 hrs 1 tablet 4h Active Gaviscon 80-14.2 MG Orally 4 times a day 4 tablet 6h Active Ondansetron 4 MG Orally every 8 hrs PRN 1 tablet on the t ongue and allow to dissolve Apr, 30 days Active Adderall XR 30 MG Orally Once a day for depression 1 capsule in the morning Mar, 28 days Active Propranolol HCl 20 mg Orally Twice a day 1 tablet 12h September, 30 day(s) Active Nebulizer 1 as directed Jul, Act minoo Gabapentin 800 MG Orally Three times a day 1 tablet 8h Jul, Active Cftpxkns-Mtbegfupc-UF 3.5-62246-2 Otic Three times a day 4 d rops into affected ear 8h Feb, 7 days Active Ventolin HFA 108 (90 Base) MCG/ACT Inhalation every 4 hrs 2 puffs a s needed 4h Dec, Active Clonidine HCl 0.1 MG 1 tablet 8h Ac tive Amlodipine Besylate 5 mg Orally Once a day 1 tablet 24h Active Baclofen 20 MG Orally Three times a day 1 tablet with food or milk 8h 30 Active Ibuprofen 600 MG 1 tablet with food or milk as needed 8h Active [place] 7.5-325 MG Orally 3 times a day 1 tablet as needed 8h 21 Mar, 2018 28 days Active Lorazepam 1 MG Orally in the AM and noon and 4pm 1 tablet Jul, 28 days Active Atorvastatin Calcium 10 mg Orally Once a day 1 tablet 24h Active Singulair 10 mg Orally Once a day 1 tablet in the evening 24h Oct, 30 day(s) Active Zofran 8 MG Orally Twice a day 1 tablet 12h Mar, 30 day(s) Active Topiramate 50 mg Orally Twice a day 1 tablet 12h Nov, 30 day(s) Active Levemir FlexTouch 100 UNIT/ML Subcutaneous Once a day 7 units 24h September, 30 days Active Dicyclomine HCl 20 mg Orally Four times a day 1 tablet 6h 1 8 Aug, 2017 Jul, 30 day(s) Active Flonase 50 mcg/act 1 spray in each nostril 12h Apr, Active Detrol LA 4 MG Orally Once a day 1 capsule 24h Dec, 30 day(s) Active Lamictal 100 mg Orally 2 times a day for depression 1 tablet September, Active BusPIRone HCl 15 mg Orally 3 times a day for anxiety 1 tablet Jan, Active Calcium 600 + D 600-200 MG-UNIT Active RESULTS No Results PROCEDURES Procedure Date Ordered Result Body Site [facility] VISIT ESTABLISHED PATIENT Apr 07, 2018 INSTRUCTIONS MEDICATIONS ADMINISTERED No Known Medications [...]
--- OUTSIDE RECORDS SUMMARY | 2019-07-17 10:46 | XMS REPORT ---
Author Author uSjey GANDHI [facility] Address [address] [place] [address] Care Team Providers Care Wood Cutter Name Role Phone WHIT GANDHI Unavailable PROBLEMS Type Condition ICD9-CM Code AMV84-SS Code Onset Dates Condition S tatus SNOMED Code Problem Hypertension I10 Active 8741682 3 Problem Diabetes E11.9 Active 26589119 Problem Other bipolar disorder F31.89 Active 37443215 Problem Anxiety disorder, unspecified F41.9 Active 493772532 Problem Fibromyalgia M79.7 Active 7507848 7 Problem Panic disorder with agoraphobia F40.01 Active 72010900 Problem Chronic obstructive pulmonary disease, unspecified J44.9 Active 15770756 Problem Lumbago with sciatica, left side M54.42 Active 808758913 Problem Lumbago with sciatica, right side M54.41 Active 021460721 Problem Fibrocystic disease of left breast N60.12 Active 57763240 Problem Other chronic pain G89.29 Active 8 1932554 Problem Fibrocystic disease of right breast N60.11 Active 43496814 Problem Bipolar 1 disorder, depressed, moderate F31.32 Active 36024661 Problem Arthritis M19.90 Active 1200735 Problem Irritable bowel syndrome with both constipation and diarrh ea K58.2 Active 45047726 Problem Irritable bowel syndrome with constipation K58.1 Active 555209330 Problem Tinnitus of right ear H93.11 Active 23500021 Problem Abnormal mammogram of right breast R92.8 Active 247002210 Problem Attention deficit hyperactiv ity disorder (ADHD), predominantly inattentive type F90.0 Active 83467992 Problem Bipolar affective disorder, remission status unspecified F31.9 Active 47050125 Problem Chronic post-traumatic stress disorder (PTSD) F43. 12 Active 395997235 Problem Essential tremor G25.0 Active 609 610555 Problem Schizoaffective disorder, bipolar type F25.0 Active 21387013 Problem Daytime somnolence R40.0 Active 1 [id number] Problem Slow transit constipation K59.01 Acti ve 17606009 Problem Back pain M54.9 Active 409296858 Problem Bipolar 1 disorder, depressed, partial remission F 31.75 Active 79133388 Problem GERD (gastroesophageal reflux disease) K21.9 Active 037263534 Problem Mild persistent asthma without complication J45.30 Active 147573734 Problem Bipolar I disorder with depression F31.9 Active 33736263 Problem Acute non-recurrent maxillary sinusitis J01.00 Active 68118289 Problem Akathisia G25.71 Active 662572300 Problem Migraine without aura and without status migrain osus, not intractable G43.009 Active 698829482 Problem Moderate persistent asthma without complication J4 5.40 Active 554587143 Problem Panlobular emphysema J43.1 Active 0833478 ALLERGIES No Information ENCOUNTERS Encounter Location Date Diagnosis [place] [address] [place] [id number] [place] [phone] May, [place] [address] [address] Apr, [place] [address] [place] [id number] [place] [phone] Mar, Tinnitus of right ear H93.11 [place] [address] [place] [id number] [place] [phone] Mar, [facility] [address] [place] [id number] [place] [phone] Mar, Anxiety disorder, unspecifie d F41.9 ; Other chronic pain G89.29 and Daytime somnolence R40.0 [facility] [address] [facility] [id number] [address] [place] [phone] Mar, Irritable bowel syndrome wit h both constipation and diarrhea K58.2 [facility] [address] [facility] [id number] [address] [place] [phone] Mar, [place] [address] [place] [id number] [place] [phone] Mar, Hypertension I10 [facility] [address] [facility] [id number] [address] [place] [phone] 14 Mar, 2018 [facility] [address] [facility] [id number] [address] [place] [phone] Mar, [facility] [address] [facility] [id number] [address] [place] [id number] Mar, [facility] [address] [facility] [id number] [address] [place] [phone] Mar, Diabetes E11.9 [facility] [address] [facility] [id number] [address] [place] [phone] Mar, [facility] [address] [facility] [id number] [address] [place] [phone] Feb, Daytime somnolence R40.0 and Anxiety disorder, unspecified F41.9 [facility] [address] [facility] [id number] [address] [place] [phone] Feb, [facility] [address] [facility] [id number] [address] [place] [phone] Feb, [facility] [address] [facility] [id number] [address] [place] [phone] Feb, Tremors of nervous system R2 5.1 and Acute swimmer''s ear of right side H60.331 [facility] [address] [facility] [id number] [address] [place] [phone] Feb, Cerebrovascular accident (CV A) due to occlusion of right cerebellar artery I63.541 and Hypertension I10 [facility] [address] [facility] [id number] [address] [place] [phone] Feb, [facility] [address] [facility] [id number] [address] [place] [address] Feb, Cerebrovascular accident (CV A) due to occlusion of right cerebellar artery I63.541 [facility] [place] [id number] [place] [id number] Feb, Hyponatremia E87.1 [facility] [address] [place] [id number] [place] [phone] Feb, [facility] [address] [place] [id number] [place] [phone] Feb, Daytime somnolence R40.0 [facility] [address] [place] [id number] [place] [address] Feb, [facility] [address] [id number] 28 Jan, 2018 [facility] [address] [place] [id number] [place] [phone] Jan, [facility] [address] [place] [id number] [place] [phone] 27 Jan, 2018 Chronic obstructive pulmonar y disease, unspecified J44.9 and Anxiety disorder, unspecified F41.9 [place] [address] [address] Jan, Hypertension I10 ; Fibromyal medhat M79.7 and Lumbago with sciatica, left side M54.42 [place] [id number] [place] [phone] 26 Jan, 2018 [place] [address] [place] [id number] [place] [phone] 20 Jan, 2018 Cerebrovascular accident (CV A) due to occlusion of right cerebellar artery I63.541 [facility] [address] [place] [id number] [place] [id number] 19 Jan, 2018 [place] [address] [place] [id number] [place] [address] 13 Jan, 2018 Arthritis M19.90 [facility] [address] [place] [id number] [place] [phone] 07 Jan, 2018 [facility] [address] [place] [id number] [address] [place] [address] Jan, Abnormal mammogram of right breast R92.8 [facility] [address] [id number] [address] [place] [phone] Dec, Daytime somnolence R40.0 and Right otitis media with effusion H65.91 [facility] [address] [id number] [address] [place] [phone] Dec, [facility] [address] [id number] [address] [place] [phone] Dec, Cerebrovascular accident (CV A) due to occlusion of right cerebellar artery I63.541 [place] [address] [id number] [address] [place] [phone] Dec, [place] [address] [id number] [address] [place] [phone] Dec, [place] [address] [id number] [address] [place] [phone] Nov, Bipolar 1 disorder, depresse d, partial remission F31.75 and Panic disorder with agoraphobia F40.01 [place] [address] [id number] [address] [place] [phone] Nov, Panlobular emphysema J43.1 [place] [address] [id number] [address] [place] [phone] Nov, Cerebrovascular accident (CV A) due to occlusion of right cerebellar artery I63.541 and Acute non-recurrent maxillary sinusitis J01.00 [place] [address] [id number] [address] [place] [phone] Nov, Panlobular emphysema J43.1 [facility] [address] [id number] [address] [place] [phone] Nov, [facility] [address] [id number] [address] [place] [phone] Nov, [facility] [address] [id number] [address] [place] [phone] Nov, [facility] [address] [id number] [address] [place] [phone] Nov, [facility] [address] [id number] [address] [place] [phone] Nov, [facility] [address] [id number] [address] [place] [phone] Nov, [facility] [address] [id number] [address] [place] [phone] Nov, [facility] [address] [id number] [address] [place] [phone] Nov, Mild persistent asthma witho ut complication J45.30 and Irritable bowel syndrome with both constipation and diarrhea K58.2 [facility] [address] [facility] [id number] [address] [place] [phone] Nov, [facility] [address] [facility] [id number] [address] [place] [phone] Oct, [facility] [address] [facility] [id number] [address] [place] [phone] Oct, [facility] [address] [facility] [id number] [address] [place] [phone] Oct, Type 2 diabetes mellitus wit h diabetic neuropathy, unspecified whether buttermaker continuous churn insulin use E11.40 ; Diabetes E11.9 ; Slow transit constipation K59.01 ; Edema of both legs R60.0 and Dysfunction of right eustachian tube H69.81 [facility] [address] [id number] [address] [place] [phone] Oct, Frequent headaches R51 [facility] [address] [id number] [address] [place] [phone] Oct, [facility] [address] [facility] [id number] [address] [place] [phone] Oct, [facility] [address] [facility] [id number] [address] [place] [phone] Oct, [facility] [address] [facility] [id number] [address] [place] [phone] Oct, [facility] [address] [facility] [id number] [address] [place] [phone] Oct, [facility] [address] [facility] [id number] [address] [place] [phone] Oct, [facility] [address] [facility] [id number] [address] [place] [phone] Oct, [facility] [address] [facility] [id number] [address] [place] [phone] Oct, [facility] [address] [facility] [id number] [address] [place] [phone] September, Frequent headaches R51 [facility] [address] [facility] [id number] [address] [place] [phone] September, Bilateral otitis media with effusion H65.93 ; Dizziness R42 and Essential tremor G25.0 [facility] [address] [facility] [id number] [address] [place] [phone] September, Chronic obstructive pulmonar y disease, unspecified COPD type J44.9 [facility] [address] [facility] [id number] [address] [place] [phone] September, Chronic obstructive pulmonar y disease, unspecified COPD type J44.9 [facility] [address] [facility] [id number] [address] [place] [address] September, Migraine without aura and wi thout status migrainosus, not intractable G43.009 [facility] [address] [facility] [id number] [address] [place] [phone] September, [facility] [address] [facility] [id number] [address] [place] [phone] September, [facility] [address] [facility] [id number] [address] [place] [address] September, [place] [address] [phone] September, Frequent headaches R51 [place] [address] [address] Aug, [place] [address] [address] Aug, Breast mass, right N63.10 [place] [address] [address] Aug, Breast lump N63.0 [place] [address] [id number] Aug, [place] [address] [address] Aug, Bipolar affective disorder, remission status unspecified F31.9 and Diabetes E11.9 [place] [address] [address] Aug, Diabetes E11.9 ; Schizoaffec tive disorder, bipolar type F25.0 ; Pharyngitis due to other organism J02.8 ; Panlobular emphysema J43.1 and Irritable bowel syndrome with both constipation and diarrhea K58.2 [place] [address] [address] Aug, Abnormal mammogram R92.8 [place] [address] [address] Aug, [place] [address] [address] Aug, Bipolar 1 disorder, depresse d, moderate F31.32 ; Panic disorder with agoraphobia F40.01 and Chronic post-traumatic stress disorder (PTSD) F43.12 [place] [address] [address] Aug, [place] [address] [facility] [id number] [address] [place] [phone] Aug, [facility] [address] [facility] [id number] [address] [place] [phone] Aug, [facility] [address] [facility] [id number] [address] [place] [phone] Jul, [facility] [address] [facility] [id number] [address] [place] [phone] Jul, Mild persistent asthma witho ut complication J45.30 [facility] [address] [id number] [address] [place] [phone] 19 Jul, 2017 Mild persistent asthma witho ut complication J45.30 [facility] [address] [facility] [id number] [address] [place] [phone] 15 Jul, 2017 Bipolar affective disorder, remission status unspecified F31.9 ; Diabetes E11.9 and Irritable bowel syndrome with constipation K58.1 [facility] [address] [facility] [id number] [address] [place] [phone] Jul, [facility] [address] [facility] [id number] [address] [place] [phone] Jul, [facility] [address] [facility] [id number] [address] [place] [phone] Jul, Frequent headaches R51 [facility] [address] [facility] [id number] [address] [place] [phone] Jul, [facility] [address] [facility] [id number] [address] [place] [address] Jul, [facility] [address] [facility] [id number] [address] [place] [phone] Jul, [facility] [address] [facility] [id number] [address] [place] [phone] Jul, Frequent headaches R51 ; Fib rocystic disease of left breast N60.12 ; Fibrocystic disease of right breast N60.11 and Diabetes E11.9 [place] [address] [facility] [id number] [address] [place] [phone] 02 Jul, 2017 [facility] [address] [facility] [id number] [address] [place] [phone] Jul, [facility] [address] [facility] [id number] [address] [place] [address] 21 Jun, 2017 Exudative tonsillitis J03.90 [facility] [address] [facility] [id number] [address] [place] [phone] 20 Jun, 2017 [facility] [address] [facility] [id number] [address] [place] [phone] 19 Jun, 2017 [facility] [address] [place] [id number] [place] [address] 15 Jun, 2017 Mild persistent asthma witho ut complication J45.30 ; Chronic obstructive pulmonary disease, unspecified COPD type J44.9 and Exudative tonsillitis J03.90 [facility] [address] [place] [id number] [address] [place] [phone] 13 Jun, 2017 Encounter for immunization Z 23 [facility] [address] [facility] [id number] [address] [place] [address] 12 Jun, 2017 [facility] [address] [place] [id number] [address] [place] [address] 12 Jun, 2017 [facility] [id number] [place] [address] 09 Jun, 2017 [facility] [address] [facility] [id number] [address] [place] [address] 06 Jun, 2017 Tonsillitis J03.90 [facility] [address] [facility] [id number] [address] [place] [phone] 05 Jun, 2017 [facility] [address] [place] [id number] [address] [place] [address] 03 Jun, 2017 Acute non-recurrent maxillar y sinusitis J01.00 [facility] [address] [facility] [id number] [address] [place] [phone] Jun, [facility] [address] [facility] [id number] [address] [place] [address] May, [facility] [address] [facility] [id number] [address] [place] [phone] May, [facility] [address] [place] [id number] [place] [phone] May, GERD (gastroesophageal reflu x disease) K21.9 [facility] [address] [place] [id number] [place] [phone] May, Migraine without aura and wi thout status migrainosus, not intractable G43.009 [place] [address] [place] [id number] [place] [address] May, [facility] [address] [address] May, [facility] [address] [address] May, Panlobular emphysema J43.1 a nd Acute non-recurrent maxillary sinusitis J01.00 [place] [address] [place] [id number] [place] [phone] May, Bipolar 1 disorder, depresse d, moderate F31.32 ; Panic disorder with agoraphobia F40.01 and Akathisia G25.71 [facility] [address] [place] [id number] [place] [address] Apr, [place] [address] [id number] Apr, [place] [address] [place] [id number] [place] [phone] Apr, Acute non-recurrent maxillar y sinusitis J01.00 [facility] [address] [place] [id number] [place] [phone] Apr, Panlobular emphysema J43.1 [facility] [address] [id number] [address] [place] [phone] Apr, [facility] [address] [id number] [address] [place] [address] Apr, Exudative tonsillitis J03.90 and Sore throat J02.9 [facility] [address] [id number] [address] [place] [address] Mar, [facility] [address] [facility] [id number] [address] [place] [phone] Mar, Acute non-recurrent maxillar y sinusitis J01.00 [place] [address] [facility] [id number] [address] [place] [phone] Mar, [facility] [address] [facility] [id number] [address] [place] [address] Mar, Panlobular emphysema J43.1 a nd Diabetes E11.9 [facility] [address] [facility] [id number] [address] [place] [phone] Mar, [facility] [address] [facility] [id number] [address] [place] [address] Feb, Wheezing R06.2 and Acute rec urrent pansinusitis J01.41 [facility] [address] [facility] [id number] [address] [place] [phone] Feb, [facility] [address] [facility] [id number] [address] [place] [phone] Feb, Acute non-recurrent maxillar y sinusitis J01.00 [place] [address] [facility] [id number] [address] [place] [address] Feb, Chronic obstructive pulmonar y disease, unspecified J44.9 [facility] [address] [facility] [id number] [address] [place] [phone] Feb, Hypoxemia R09.02 and Chronic obstructive pulmonary disease, unspecified J44.9 [facility] [address] [facility] [id number] [address] [place] [id number] 28 Jan, 2017 Bipolar 1 disorder, depresse d, moderate F31.32 ; Panic disorder with agoraphobia F40.01 ; Chronic post-traumatic stress disorder (PTSD) F43.12 ; Diabetes E11.9 and Moderate persistent asthma without complication J45.40 [place] [address] [id number] [address] [place] [phone] Jan, [place] [address] [id number] [address] [place] [id number] Jan, Acute non-recurrent maxillar y sinusitis J01.00 [place] [address] [address] [facility] [id number] [address] [place] [id number] Jan, [place] [address] [address] [facility] [id number] [address] [place] [phone] Jan, [place] [address] [id number] [address] [place] [phone] Jan, Moderate persistent asthma w ithout complication J45.40 and Hypoxemia R09.02 [place] [address] [address] [facility] [id number] [address] [place] [phone] Jan, Moderate persistent asthma w ithout complication J45.40 and Hypoxemia R09.02 [place] [address] [address] [facility] [id number] [address] [place] [phone] Jan, [place] [address] [id number] [address] [place] [phone] Dec, Acute non-recurrent maxillar y sinusitis J01.00 [place] [address] [id number] [address] [place] [phone] Dec, Chronic obstructive pulmonar y disease, unspecified J44.9 [place] [address] [address] [facility] [id number] [address] [place] [phone] Dec, [place] [address] [address] [facility] [id number] [address] [place] [phone] Dec, Mild persistent asthma witho ut complication J45.30 and Other chronic pain G89.29 [facility] [address] [id number] [address] [place] [id number] Nov, [facility] [address] [facility] [id number] [address] [place] [phone] Nov, Acute non-recurrent maxillar y sinusitis J01.00 [facility] [address] [id number] [address] [place] [phone] Nov, [place] [address] [address] [facility] [id number] [address] [place] [phone] Nov, [place] [address] [address] [facility] [id number] [address] [place] [phone] Oct, [facility] [address] [facility] [id number] [address] [place] [phone] Oct, Bipolar 1 disorder, depresse d, partial remission F31.75 ; Panic disorder with agoraphobia F40.01 and Chronic post-traumatic stress disorder (PTSD) F43.12 [place] [address] [address] [facility] [id number] [address] [place] [phone] Oct, Acute non-recurrent maxillar y sinusitis J01.00 [place] [address] [address] [facility] [id number] [address] [place] [phone] Oct, [facility] [address] [facility] [id number] [address] [place] [phone] Oct, Diabetes E11.9 [place] [address] [address] [facility] [id number] [address] [place] [phone] September, Diabetes E11.9 [place] [address] [address] [facility] [id number] [address] [place] [phone] September, Diabetes E11.9 and Sinus tac hycardia R00.0 [place] [address] [address] [facility] [id number] [address] [place] [phone] September, [facility] [address] [facility] [id number] [address] [place] [address] September, [facility] [address] [facility] [id number] [address] [place] [phone] Aug, Diabetes E11.9 and Lumbago w ith sciatica, right side M54.41 [facility] [address] [place] [id number] [address] [place] [phone] Aug, [facility] [address] [place] [id number] [address] [place] [phone] Jul, Bipolar 1 disorder, depresse d, moderate F31.32 ; Panic disorder with agoraphobia F40.01 and Chronic post-traumatic stress disorder (PTSD) F43.12 [facility] [address] [place] [id number] [address] [place] [phone] Jul, Sore throat J02.9 [facility] [address] [place] [id number] [address] [place] [phone] Jul, [facility] [address] [place] [id number] [address] [place] [phone] Jul, [facility] [address] [facility] [id number] [address] [place] [phone] Jul, [facility] [address] [place] [id number] [address] [place] [phone] Jul, [facility] [address] [facility] [id number] [address] [place] [phone] Jul, Sore throat J02.9 and Pharyn gitis, unspecified etiology J02.9 [facility] [address] [facility] [id number] [address] [place] [phone] Jun, [facility] [address] [place] [id number] [address] [place] [phone] Jun, Diabetes E11.9 [facility] [address] [id number] [address] [place] [phone] Jun, [facility] [address] [id number] [address] [place] [phone] Jun, [facility] [address] [id number] [address] [place] [phone] Jun, [facility] [address] [id number] [address] [place] [phone] Jun, [facility] [address] [id number] [address] [place] [phone] Jun, [facility] [address] [id number] [address] [place] [phone] Jun, [facility] [address] [id number] [address] [place] [phone] Jun, [facility] [address] [id number] [address] [place] [id number] Jun, [facility] [address] [id number] [address] [place] [address] May, Diabetes E11.9 ; Other chron ic pain G89.29 ; Acute recurrent maxillary sinusitis J01.01 ; Bipolar I disorder with depression F31.9 and Anxiety disorder, unspecified F41.9 [facility] [address] [id number] [address] [place] [phone] May, [facility] [address] [id number] [address] [place] [address] May, Diabetes E11.9 ; Bipolar I d isorder with depression F31.9 ; Anxiety disorder, unspecified F41.9 ; Other chronic pain G89.29 and Acute recurrent maxillary sinusitis J01.01 [facility] [address] [id number] [address] [place] [phone] May, [facility] [address] [id number] [address] [place] [phone] May, Attention deficit hyperactiv ity disorder (ADHD), predominantly inattentive type F90.0 [facility] [address] [id number] [address] [place] [phone] May, [facility] [address] [id number] [address] [place] [phone] Apr, Attention deficit hyperactiv ity disorder (ADHD), predominantly inattentive type F90.0 and Non-seasonal allergic rhinitis due to other allergic trigger J30.89 [facility] [address] [id number] [address] [place] [address] Apr, Bipolar 1 disorder, depresse d, moderate F31.32 ; Panic disorder with agoraphobia F40.01 and Chronic post-traumatic stress disorder (PTSD) F43.12 [place] [address] [place] [id number] [address] [place] [phone] Apr, Dental examination Z01.20 [place] [address] [id number] [address] [place] [phone] Mar, [place] [address] [id number] [address] [place] [phone] Mar, [place] [address] [facility] [id number] [address] [place] [phone] Mar, Bipolar I disorder with depr ession F31.9 and Anxiety disorder, unspecified F41.9 [place] [address] [facility] [id number] [address] [place] [phone] 08 Mar, 2016 Panic disorder with agorapho syd F40.01 ; Bipolar 1 disorder, depressed, moderate F31.32 and Chronic post-traumatic stress disorder (PTSD) F43.12 [place] [address] [id number] [address] [place] [phone] 04 Mar, 2016 [place] [address] [facility] [id number] [address] [place] [phone] Mar, Dental caries K02.9 [place] [address] [place] [id number] [address] [place] [phone] 24 Feb, 2016 Lumbago with sciatica, left side M54.42 ; Lumbago with sciatica, right side M54.41 and Other chronic pain G89.29 [facility] [address] [facility] [id number] [address] [place] [phone] 17 Feb, 2016 [facility] [address] [place] [id number] [place] [phone] 14 Feb, 2016 [facility] [address] [place] [id number] [place] [phone] 13 Feb, 2016 Bipolar I disorder with depr ession F31.9 ; PTSD (post-traumatic stress disorder) F43.10 and Mood disorder F39 [place] [address] [place] [id number] [place] [phone] Feb, [place] [address] [phone] Feb, Dental examination Z01.20 [facility] [address] [place] [id number] [address] [place] [phone] Feb, [facility] [address] [place] [id number] [address] [place] [id number] Feb, Acute bronchitis, unspecifie d organism J20.9 [place] [address] [place] [id number] [address] [place] [address] Jan, Mood disorder F39 ; Migraine without aura and without status migrainosus, not intractable G43.009 ; Irritable bowel syndrome, unspecified type K58.9 ; Diabetes E11.9 and Encounter for immunization Z23 [facility] [address] [place] [id number] [address] [place] [phone] 15 Jan, 2016 [facility] [address] [place] [id number] [address] [place] [id number] 06 Jan, 2016 [facility] [address] [place] [id number] [address] [place] [phone] Jan, [facility] [address] [facility] [id number] [address] [place] [phone] Jan, [facility] [address] [facility] [id number] [address] [place] [phone] Jan, [facility] [address] [facility] [id number] [address] [place] [phone] Dec, Bipolar I disorder with depr ession F31.9 ; PTSD (post-traumatic stress disorder) F43.10 and Panic disorder with agoraphobia F40.01 [facility] [address] [facility] [id number] [address] [place] [phone] Dec, Chronic obstructive pulmonar y disease, unspecified COPD type J44.9 ; Tremor R25.1 and Anxiety F41.9 [facility] [address] [place] [id number] [address] [place] [phone] Dec, [facility] [address] [place] [id number] [address] [place] [phone] Nov, Tremors of nervous system R2 5.1 and Cramping of feet R25.2 [facility] [address] [facility] [id number] [address] [place] [phone] Nov, [facility] [address] [place] [id number] [address] [place] [phone] Nov, [facility] [address] [facility] [id number] [address] [place] [phone] Oct, Chronic obstructive pulmonar y disease, unspecified J44.9 [facility] [address] [facility] [id number] [address] [place] [phone] Oct, [facility] [address] [facility] [id number] [address] [place] [phone] Oct, Tremor R25.1 [facility] [address] [facility] [id number] [address] [place] [phone] Oct, Bipolar I disorder with depr ession F31.9 ; Diabetes E11.9 ; PTSD (post-traumatic stress disorder) F43.10 and Panic disorder with agoraphobia F40.01 [facility] [address] [id number] [address] [place] [phone] Oct, Mood disorder F39 [facility] [address] [facility] [id number] [address] [place] [phone] September, [facility] [address] [facility] [id number] [address] [place] [phone] September, Diabetes E11.9 ; Bipolar I d isorder with depression F31.9 ; PTSD (post-traumatic stress disorder) F43.10 and Panic disorder with agoraphobia F40.01 [place] [address] [facility] [id number] [address] [place] [address] September, Mood disorder F39 ; Schizoaf fective disorder, unspecified type F25.9 ; Arthritis M19.90 ; Tremor R25.1 ; Acute non-recurrent frontal sinusitis J01.10 and Blood in stool K92.1 [place] [address] [facility] [id number] [address] [place] [address] September, [place] [address] [facility] [id number] [address] [place] [phone] September, Chronic obstructive pulmonar y disease, unspecified J44.9 [place] [address] [facility] [id number] [address] [place] [phone] September, Diabetes E11.9 [facility] [address] [id number] [address] [place] [phone] Aug, Other bipolar disorder F31.8 9 and Anxiety disorder, unspecified F41.9 [place] [address] [id number] [address] [place] [address] Aug, [place] [address] [facility] [id number] [address] [place] [phone] Aug, Diabetes E11.9 [place] [address] [id number] [address] [place] [phone] 18 Aug, 2015 [facility] [address] [id number] [address] [place] [phone] 14 Aug, 2015 Diabetes E11.9 ; Fatigue R53 .83 and Dizziness R42 [facility] [address] [id number] [address] [place] [address] Aug, Other bipolar disorder F31.8 9 [facility] [address] [id number] [address] [place] [phone] Aug, Generalized anxiety disorder F41.1 [facility] [address] [id number] [address] [place] [phone] Aug, Other bipolar disorder F31.8 9 and Anxiety disorder, unspecified F41.9 [facility] [address] [facility] [id number] [address] [place] [phone] Aug, [facility] [address] [id number] [address] [place] [phone] Jul, [facility] [address] [id number] [address] [place] [phone] 24 Jul, 2015 [facility] [address] [facility] [id number] [address] [place] [phone] Jul, Bronchitis J40 [facility] [address] [facility] [id number] [address] [place] [address] Jul, Anxiety disorder F41.9 [facility] [address] [facility] [id number] [address] [place] [phone] Jul, Other bipolar disorder F31.8 9 and Anxiety disorder, unspecified F41.9 [facility] [address] [facility] [id number] [address] [place] [phone] 18 Jul, 2015 Other bipolar disorder F31.8 9 and Fibromyalgia M79.7 [facility] [address] [facility] [id number] [address] [place] [phone] 10 Jul, 2015 [facility] [address] [id number] Jul, [facility] [address] [address] Jul, [facility] [address] [id number] Jul, Other bipolar disorder F31.8 9 and Anxiety disorder, unspecified F41.9 [facility] [address] [address] Jun, GERD (gastroesophageal reflu x disease) K21.9 [facility] [address] [address] Jun, [facility] [address] [address] May, [facility] [address] [address] May, Diabetes E11.9 ; Back pain M 54.9 ; GERD (gastroesophageal reflux disease) K21.9 ; Hypertension I10 and Peripheral neuropathy G62.9 [facility] [address] [id number] Mar, [facility] [address] [address] Mar, [facility] [address] [address] Mar, Acute sinusitis J01.90 and O titis media, left H66.92 [facility] [address] [place] [id number] [address] [place] [phone] Feb, [facility] [address] [id number] Feb, [facility] [address] [place] [id number] [address] [place] [phone] Feb, [facility] [address] [place] [id number] [address] [place] [address] Feb, [facility] [address] [facility] [id number] [address] [place] [address] Jan, [facility] [address] [facility] [id number] [address] [place] [address] Jan, Diabetes 250.00 and Back higinio n 724.5 [facility] [address] [facility] [id number] [address] [place] [address] Jan, [facility] [address] [facility] [id number] [address] [place] [address] Dec, Diabetes 250.00 ; Benign ess ential hypertension 401.1 and Allergic rhinitis 477.9 [facility] [address] [facility] [id number] [address] [place] [phone] Dec, [facility] [address] [place] [id number] [address] [place] [address] Dec, [facility] [address] [place] [id number] [address] [place] [phone] Dec, Psychosis 298.9 [facility] [address] [place] [id number] [address] [place] [address] Dec, Medication side effect 995.2 0 and Generalized anxiety disorder 300.02 [facility] [address] [place] [id number] [address] [place] [phone] Dec, Acquired cognitive dysfuncti on 294.9 [facility] [address] [facility] [id number] [address] [place] [phone] Dec, [facility] [address] [place] [id number] [address] [place] [phone] Dec, Unspecified myalgia and myos itis 729.1 and Generalized anxiety disorder 300.02 [facility] [address] [place] [id number] [address] [place] [address] Nov, [facility] [address] [place] [id number] [address] [place] [phone] Nov, [facility] [address] [id number] [address] [place] [address] Nov, [facility] [address] [id number] [address] [place] [phone] Nov, Upper respiratory infection 465.9 and Chronic airway obstruction, not elsewhere classified 496 [facility] [address] [id number] [address] [place] [address] Nov, Hyponatremia 276.1 [facility] [address] [id number] [address] [place] [phone] Oct, [facility] [address] [facility] [id number] [address] [place] [phone] Oct, [facility] [address] [id number] [address] [place] [phone] Oct, [facility] [address] [id number] [address] [place] [phone] Oct, [facility] [address] [id number] [address] [place] [address] Oct, Hyponatremia 276.1 [facility] [address] [facility] [id number] [address] [place] [address] Oct, [facility] [address] [facility] [id number] [address] [place] [phone] Oct, [facility] [address] [facility] [id number] [address] [place] [address] Oct, Generalized anxiety disorder 300.02 [facility] [address] [id number] [address] [place] [address] Oct, Generalized anxiety disorder 300.02 and Diabetes 250.00 [facility] [address] [id number] [address] [place] [address] Aug, [facility] [address] [facility] [id number] [address] [place] [phone] Aug, [facility] [address] [id number] [address] [place] [address], [place] [address] Jul, [facility] [address] [id number] [address] [place] [address], [place] [address] Jul, [facility] [address] [id number] [address] [place] [address], [place] [address] Jun, [facility] [address] [id number] [address] [place] [address], [place] [address] Jun, [facility] [address] [id number] [address] [place] [address], [place] [address] Jun, [facility] [address] [id number] [address] [place] [address], [place] [address] Jun, [facility] [address] [id number] [address] [place] [address], [place] [address] Jun, [facility] [address] [id number] [address] [place] [address], [place] [address] May, [facility] [address] [id number] [address] [place] [address], [place] [address] May, [facility] [address] [id number] [address] [place] [address], [place] [address] Apr, [facility] [address] [id number] [address] [place] [address], [place] [address] Apr, [facility] [address] [id number] [address] [place] [address], [place] [address] Apr, [facility] [address] [id number] [address] [place] [address], [place] [address] Apr, [facility] [address] [id number] [address] [place] [address], [place] [address] 17 Apr, 2013 [facility] [address] [id number] [address] [place] [address], [place] [address] Apr, [facility] [address] [id number] [address] [place] [address], [place] [address] Apr, [facility] [address] [id number] [address] [place] [address], [place] [address] Apr, [facility] [address] [id number] [address] [place] [address], [place] [address] Feb, [facility] [address] [id number] [address] [place] [address], [place] [address] Feb, [facility] [address] [id number] [address] [place] [address], [place] [address] Jan, [facility] [address] [id number] [address] [place] [address], [place] [address] Jan, [facility] [address] [id number] [address] [place] [address], [place] [address] Dec, [facility] [address] [id number] [address] [place] [address], [place] [address] Dec, [facility] [address] [id number] [address] [place] [address], [place] [address] Dec, [facility] [address] [id number] [address] [place] [address], [place] [address] Nov, [facility] [address] [id number] [address] [place] [address], [place] [address] Nov, [facility] [address] [id number] [address] [place] [address], [place] [address] Nov, [facility] [address] [id number] [address] [place] [address], [place] [address] Oct, [facility] [address] [id number] [address] [place] [address], [place] [address] Oct, [facility] [address] [id number] [address] [place] [address], [place] [address] Oct, [facility] [address] [id number] [address] [place] [address], [place] [address] September, [facility] [address] [id number] [address] [place] [address], [place] [address] September, [facility] [address] [id number] [address] [place] [address], [place] [address] September, [facility] [address] [id number] [address] [place] [address], [place] [address] Aug, [facility] [address] [id number] [address] [place] [address], [place] [address] Aug, [facility] [address] [id number] [address] [place] [address], [place] [address] Aug, [facility] [address] [id number] [place] [address], [place] [address] 16 Aug, 2011 [facility] [address] [id number] [address] [place] [address], [place] [address] Jul, [facility] [address] [id number] [address] [place] [address], [place] [address] Jun, [facility] [address] [id number] [address] [place] [address], [place] [address] 14 Jun, 2011 [facility] [address] [id number] [address] [place] [address], [place] [address] Jun, [facility] [address] [id number] [address] [place] [address], [place] [address] 07 Jun, 2011 [facility] [address] [id number] [address] [place] [address], [place] [address] Jun, [facility] [address] [id number] [address] [place] [address], [place] [address] May, [facility] [address] [id number] [address] [place] [address], [place] [address] May, [facility] [address] [id number] [address] [place] [address], [place] [address] May, [facility] [address] [id number] [address] [place] [address], [place] [address] 04 May, 2011 [facility] [address] [id number] [address] [place] [address], [place] [address] Apr, [facility] [address] [id number] [address] [place] [address], [place] [address] Apr, [facility] [address] [id number] [address] [place] [address], [place] [address] Apr, [facility] [address] [id number] [address] [place] [address], [place] [address] Mar, [facility] [address] [id number] [address] [place] [address], [place] [address] Mar[facility] [address] [id number] [address] [place] [address], [place] [address] Mar, [facility] [address] [id number] [address] [place] [address], [place] [address] Feb, [facility] [address] [id number] [address] [place] [address], [place] [address] Feb, [facility] [address] [id number] [address] [place] [address], [place] [address] Feb, [facility] [address] [id number] [address] [place] [address], [place] [address] Nov, [facility] [address] [id number] [address] [place] [address], [place] [address] September, [facility] [address] [id number] [address] [place] [address], [place] [address] Aug, [facility] [address] [id number] [address] [place] [address], [place] [address] 14 Jul, 2010 [facility] [address] [id number] [address] [place] [address], [place] [address] May, [facility] [address] [id number] [address] [place] [address], [place] [address] Apr, [facility] [address] [facility] [id number] [address] [place] [address] Apr, [facility] [address] [facility] [id number] [address] [place] [address] Apr, [facility] [address] [facility] [id number] [address] [place] [id number] Apr, [facility] [address] [facility] [id number] [address] [place] [address] Apr, IMMUNIZATIONS No Known Immunizations SOCIAL HISTORY Never Assessed REASON FOR VISIT Medication Clarification PLAN OF CARE VITAL SIGNS MEDICATIONS Unknown [...]
--- OUTSIDE RECORDS SUMMARY | 2019-07-17 10:47 | XMS REPORT ---
Author Author Sujey GANDHI Organization [facility] Address [address] [place] [address] Care Team Providers Care Electrical Service Technician Name Role Phone WHIT GANDHI Unavailable PROBLEMS Type Condition ICD9-CM Code WPL89-XM Code Onset Dates Condition S tatus SNOMED Code Problem Diabetes E11.9 Active 67270189 Problem GERD (gastroesophageal reflux disease) K21.9 Active 483992535 Problem Anxiety disorder, unspecified F41.9 Active 269797246 Problem Hypertension I10 Active 4252358 3 Problem Other bipolar disorder F31.89 Active 47910656 Problem Fibromyalgia M79.7 Active 2327875 7 Problem Panic disorder with agoraphobia F40.01 Active 64154900 Problem Chronic obstructive pulmonary disease, unspecified J44.9 Active 06705478 Problem Lumbago with sciatica, left side M54.42 Active 787347247 Problem Migraine without aura and without status migrain osus, not intractable G43.009 Active 881373682 Problem Lumbago with sciatica, right side M54.41 Active 830629963 Problem Fibrocystic disease of right breast N60.11 Active 07998389 Problem Other chronic pain G89.29 Active 8 7533350 Problem Fibrocystic disease of left breast N60.12 Active 27075329 Problem Irritable bowel syndrome with constipation K58.1 Active 709289828 Problem Arthritis M19.90 Active 3811450 Problem Abnormal mammogram of right breast R92.8 Active 844945033 Problem Daytime somnolence R40.0 Active 1 17279712192 Problem Bipolar affective disorder, remission status unspecified F31.9 Active 18160077 Problem Chronic post-traumatic stress disorder (PTSD) F43. 12 Active 137845236 Problem Bipolar 1 disorder, depressed, moderate F31.32 Active 14325198 Problem Schizoaffective disorder, bipolar type F25.0 Active 57161565 Problem Irritable bowel syndrome with both constipation and diarrh ea K58.2 Active 26700155 Problem Slow transit constipation K59.01 Acti ve 94822888 Problem Essential tremor G25.0 Active 609 002780 Problem Acute non-recurrent maxillary sinusitis J01.00 Active 51955035 Problem Back pain M54.9 Active 151556316 Problem Bipolar 1 disorder, depressed, partial remission F 31.75 Active 05382166 Problem Attention deficit hyperactiv ity disorder (ADHD), predominantly inattentive type F90.0 Active 94779645 Problem Bipolar I disorder with depression F31.9 Active 47273817 Problem Panlobular emphysema J43.1 Active 5933016 Problem Akathisia G25.71 Active 647262034 Problem Mild persistent asthma without complication J45.30 Active 937112806 Problem Moderate persistent asthma without complication J4 5.40 Active 657546976 ALLERGIES No Information ENCOUNTERS Encounter Location Date Diagnosis [place] [address] [address] [facility] [id number] [address] [place] [phone] Mar, [place] [address] [address] Mar, [place] [address] [address] Mar, Anxiety disorder, unspecifie d F41.9 ; Other chronic pain G89.29 and Daytime somnolence R40.0 [place] [address] [address] [place] [id number] [address] [place] [address] 20 Mar, 2018 Irritable bowel syndrome wit h both constipation and diarrhea K58.2 [place] [address] [address] [facility] [id number] [address] [place] [address] 20 Mar, 2018 [place] [address] [address] [facility] [id number] [address] [place] [phone] 19 Mar, 2018 Hypertension I10 [place] [address] [address] [facility] [id number] [address] [place] [phone] 14 Mar, 2018 [place] [address] [address] [facility] [id number] [address] [place] [address] 12 Mar, 2018 [facility] [address] [place] [id number] [address] [place] [address] Mar, [facility] [address] [facility] [id number] [address] [place] [address] Mar, Diabetes E11.9 [facility] [address] [facility] [id number] [address] [place], [place] [address] Mar, [facility] [address] [facility] [id number] [address] [place] [address] Feb, Daytime somnolence R40.0 and Anxiety disorder, unspecified F41.9 [facility] [address] [facility] [id number] [address] [place] [address] Feb, [facility] [address] [facility] [id number] [address] [place] [address] Feb, [place] [address] [address] [facility] [id number] [address] [place] [address] Feb, Tremors of nervous system R2 5.1 and Acute swimmer''s ear of right side H60.331 [facility] [address] [facility] [id number] [address] [place] [address] Feb, Cerebrovascular accident (CV A) due to occlusion of right cerebellar artery I63.[address] [facility] [address] [facility] [id number] [address] [place] [address] Feb, [place] [address] [place] [id number] [address] [place] [address] Feb, Cerebrovascular accident (CV A) due to occlusion of right cerebellar artery I63.541 [facility] [id number] [place] [id number] Feb, Hyponatremia E87.1 [facility] [address] [facility] [id number] [address] [place] [address] Feb, [facility] [address] [facility] [id number] [address] [place] [address] Feb, Daytime somnolence R40.0 [facility] [address] [place] [id number] [address] [place] [address] Feb, [facility] [address] [place] [id number] [address] [place] [address] Jan, [facility] [address] [facility] [id number] [address] [place] [address] Jan, [place] [address] [place] [id number] [place] [address] Jan, Chronic obstructive pulmonar y disease, unspecified J44.9 and Anxiety disorder, unspecified F41.9 [place] [address] [place] [id number] [place] [address] Jan, Hypertension I10 ; Fibromyal medhat M79.7 and Lumbago with sciatica, left side M54.42 [place] [address] [place] [id number] [address] [place] [address] Jan, [place] [address] [place] [id number] [place] [address] 20 Jan, 2018 Cerebrovascular accident (CV A) due to occlusion of right cerebellar artery I63.541 [place] [address] [place] [id number] [address] [place] [phone] 19 Jan, 2018 [place] [address] [place] [id number] [address] [place] [address] 13 Jan, 2018 Arthritis M19.90 [place] [address] [place] [id number] [address] [place] [address] 07 Jan, 2018 [place] [address] [place] [id number] [address] [place] [address] 04 Jan, 2018 Abnormal mammogram of right breast R92.8 [place] [address] [place] [id number] [address] [place] [address] Dec, Daytime somnolence R40.0 and Right otitis media with effusion H65.91 [place] [address] [place] [id number] [address] [place] [address] Dec, [facility] [address] [id number] [address] [place] [address] Dec, Cerebrovascular accident (CV A) due to occlusion of right cerebellar artery I63.541 [facility] [address] [id number] [address] [place] [address] Dec, [facility] [address] [id number] [address] [place] [address] Dec, [facility] [address] [id number] [address] [place] [address] Nov, Bipolar 1 disorder, depresse d, partial remission F31.75 and Panic disorder with agoraphobia F40.01 [facility] [address] [id number] [address] [place] [address] Nov, Panlobular emphysema J43.1 [facility] [address] [id number] [address] [place] [address] Nov, Cerebrovascular accident (CV A) due to occlusion of right cerebellar artery I63.541 and Acute non-recurrent maxillary sinusitis J01.00 [facility] [address] [id number] [address] [place] [address] Nov, Panlobular emphysema J43.1 [facility] [address] [id number] [address] [place] [address] Nov, [facility] [address] [id number] [address] [place] [address] Nov, [facility] [address] [id number] [address] [place] [address] Nov, [facility] [address] [id number] [address] [place] [phone] Nov, [facility] [address] [id number] [address] [place] [phone] Nov, [facility] [address] [facility] [id number] [address] [place] [address] Nov, [facility] [address] [facility] [id number] [address] [place] [address] Nov, [facility] [address] [facility] [id number] [address] [place] [address] Nov, Mild persistent asthma witho ut complication J45.30 and Irritable bowel syndrome with both constipation and diarrhea K58.2 [facility] [address] [facility] [id number] [address] [place] [address] Nov, [facility] [address] [facility] [id number] [address] [place] [phone] Oct, [facility] [address] [place] [id number] [address] [place] [address] Oct, [facility] [address] [address] Oct, Type 2 diabetes mellitus wit h diabetic neuropathy, unspecified whether ocean transportation intermediary insulin use E11.40 ; Diabetes E11.9 ; Slow transit constipation K59.01 ; Edema of both legs R60.0 and Dysfunction of right eustachian tube H69.81 [facility] [address] [place] [id number] [address] [place] [address] Oct, Frequent headaches R51 [facility] [address] [place] [id number] [address] [place] [phone] Oct, [facility] [address] [place] [id number] [address] [place] [phone] Oct, [facility] [address] [facility] [id number] [address] [place] [address] Oct, [facility] [address] [place] [id number] [address] [place] [address] Oct, [facility] [address] [place] [id number] [address] [place] [address] Oct, [facility] [address] [place] [id number] [address] [place] [address] Oct, [facility] [address] [id number] [address] [place] [phone] Oct, [facility] [address] [facility] [id number] [address] [place] [address] Oct, [facility] [address] [facility] [id number] [address] [place] [phone] September, Frequent headaches R51 [facility] [address] [facility] [id number] [address] [place] [address] September, Bilateral otitis media with effusion H65.93 ; Dizziness R42 and Essential tremor G25.0 [facility] [address] [facility] [id number] [address] [place] [address] September, Chronic obstructive pulmonar y disease, unspecified COPD type J44.9 [facility] [address] [facility] [id number] [address] [place] [address] September, Chronic obstructive pulmonar y disease, unspecified COPD type J44.9 [facility] [address] [facility] [id number] [address] [place] [address] September, Migraine without aura and wi thout status migrainosus, not intractable G43.009 [facility] [address] [facility] [id number] [address] [place] [address] September, [facility] [address] [facility] [id number] [address] [place] [address] September, [facility] [address] [facility] [id number] [address] [place] [address] September, [facility] [address] [facility] [id number] [address] [place] [address] September, Frequent headaches R51 [facility] [address] [facility] [id number] [address] [place] [phone] Aug, [facility] [address] [place] [id number] [address] [place] [address] Aug, Breast mass, right N63.10 [facility] [address] [place] [id number] [address] [place] [address] Aug, Breast lump N63.0 [facility] [address] [place] [id number] [address] [place] [address] Aug, [facility] [address] [place] [id number] [place] [address] Aug, Bipolar affective disorder, remission status unspecified F31.9 and Diabetes E11.9 [place] [address] [place] [id number] [place] [address] Aug, Diabetes E11.9 ; Schizoaffec tive disorder, bipolar type F25.0 ; Pharyngitis due to other organism J02.8 ; Panlobular emphysema J43.1 and Irritable bowel syndrome with both constipation and diarrhea K58.2 [place] [address] [place] [id number] [address] [place] [address] Aug, Abnormal mammogram R92.8 [place] [address] [place] [id number] [place] [address] Aug, [place] [address] [place] [id number] [place] [address] Aug, Bipolar 1 disorder, depresse d, moderate F31.32 ; Panic disorder with agoraphobia F40.01 and Chronic post-traumatic stress disorder (PTSD) F43.12 [place] [address] [place] [id number] [address] [place] [address] Aug, [place] [address] [address] Aug, [place] [address] [place] [id number] [address] [place] [address] Aug, [place] [address] [address] Jul, [facility] [address] [facility] [id number] [address] [place] [address] 20 Jul, 2017 Mild persistent asthma witho ut complication J45.30 [facility] [address] [facility] [id number] [address] [place] [phone] 19 Jul, 2017 Mild persistent asthma witho ut complication J45.30 [facility] [address] [facility] [id number] [address] [place] [address] 15 Jul, 2017 Bipolar affective disorder, remission status unspecified F31.9 ; Diabetes E11.9 and Irritable bowel syndrome with constipation K58.1 [facility] [address] [facility] [id number] [address] [place] [address] Jul, [facility] [address] [facility] [id number] [address] [place] [address] Jul, [facility] [address] [facility] [id number] [address] [place] [address] Jul, Frequent headaches R51 [facility] [address] [facility] [id number] [address] [place] [address] Jul, [facility] [address] [facility] [id number] [address] [place] [address] Jul, [facility] [address] [facility] [id number] [address] [place] [address] Jul, [facility] [address] [facility] [id number] [address] [place] [address] Jul, Frequent headaches R51 ; Fib rocystic disease of left breast N60.12 ; Fibrocystic disease of right breast N60.[address] [facility] [address] [facility] [id number] [address] [place] [address] Jul, [facility] [address] [facility] [id number] [address] [place] [address] Jul, [facility] [address] [facility] [id number] [address] [place] [phone] Jun, Exudative tonsillitis J03.90 [facility] [address] [facility] [id number] [address] [place] [address] 20 Jun, 2017 [facility] [address] [facility] [id number] [address] [place] [address] 19 Jun, 2017 [facility] [address] [facility] [id number] [address] [place] [address] 15 Jun, 2017 Mild persistent asthma witho ut complication J45.30 ; Chronic obstructive pulmonary disease, unspecified COPD type J44.9 and Exudative tonsillitis J03.90 [facility] [address] [facility] [id number] [address] [place] [address] 13 Jun, 2017 Encounter for immunization Z 23 [facility] [address] [facility] [id number] [address] [place] [phone] [address] Jun, 2017 [facility] [address] [facility] [id number] [address] [place] [phone] Jun, [facility] [address] [facility] [id number] [address] [place] [phone] 09 Jun, 2017 [facility] [address] [facility] [id number] [address] [place] [address] 06 Jun, [address] [facility] [address] [facility] [id number] [address] [place] [id number] 05 Jun, 2017 [facility] [address] [facility] [id number] [address] [place] [phone] 03 Jun, 2017 Acute non-recurrent maxillar y sinusitis J01.00 [facility] [address] [facility] [id number] [address] [place] [address] Jun, [facility] [address] [facility] [id number] [address] [place] [address] May, [facility] [address] [facility] [id number] [address] [place] [phone] May, [facility] [address] [facility] [id number] [address] [place] [address] May, GERD (gastroesophageal reflu x disease) K21.9 [facility] [address] [facility] [id number] [address] [place] [address] May, Migraine without aura and wi thout status migrainosus, not intractable G43.009 [place] [address] [facility] [id number] [address] [place] [address] May, [place] [address] [place] [id number] [address] [place] [address] May, [place] [address] [place] [id number] [address] [place] [address] May, Panlobular emphysema J43.1 a nd Acute non-recurrent maxillary sinusitis J01.00 [place] [address] [place] [id number] [address] [place] [address] May, Bipolar 1 disorder, depresse d, moderate F31.32 ; Panic disorder with agoraphobia F40.01 and Akathisia G25.71 [place] [address] [place] [id number] [address] [place] [address] Apr, [place] [address] [place] [id number] [address] [place] [address] Apr, [place] [address] [place] [id number] [address] [place] [address] Apr, Acute non-recurrent maxillar y sinusitis J01.00 [place] [address] [facility] [id number] [address] [place] [address] Apr, Panlobular emphysema J43.1 [place] [address] [facility] [id number] [address] [place] [address] Apr, [facility] [address] [facility] [id number] [address] [place] [address] Apr, Exudative tonsillitis J03.[address] [facility] [address] [place] [id number] [address] [place] [phone] Mar, [facility] [address] [place] [id number] [place] [address] Mar, Acute non-recurrent maxillar y sinusitis J01.00 [place] [address] [address] Mar, [facility] [address] [address] Mar, Panlobular emphysema J43.1 a nd Diabetes E11.9 [place] [address] [address] Mar, [facility] [address] [address] Feb, Wheezing R06.2 and Acute rec urrent pansinusitis J01.41 [place] [address] [address] Feb, [place] [address] [address] Feb, Acute non-recurrent maxillar y sinusitis J01.00 [place] [address] [address] Feb, Chronic obstructive pulmonar y disease, unspecified J44.9 [facility] [address] [place] [id number] [address] [place] [address] Feb, Hypoxemia R09.02 and Chronic obstructive pulmonary disease, unspecified J44.9 [place] [address] [place] [id number] [address] [place] [id number] Jan, Bipolar 1 disorder, depresse d, moderate F31.32 ; Panic disorder with agoraphobia F40.01 ; Chronic post-traumatic stress disorder (PTSD) F43.12 ; Diabetes E11.9 and Moderate persistent asthma without complication J45.40 [facility] [address] [id number] [address] [place] [id number] 22 Jan, 2017 [facility] [address] [id number] [address] [place] [phone] Jan, Acute non-recurrent maxillar y sinusitis J01.00 [facility] [address] [id number] [address] [place] [id number] 18 Jan, 2017 [facility] [address] [id number] [address] [place] [id number] Jan, [facility] [address] [id number] [address] [place] [phone] Jan, Moderate [facility] J[facility].[address] [facility] [address] [id number] [address] [place] [id number] Jan, Moderate persistent asthma w ithout complication J45.[address] [facility] [address] [id number] [address] [place] [id number] Jan, [facility] [address] [id number] [address] [place] [phone] Dec, Acute non-recurrent maxillar y sinusitis J01.00 [facility] [address] [id number] [address] [place] [id number] Dec, Chronic obstructive pulmonar y disease, unspecified J44.9 [facility] [address] [id number] [address] [place] [phone] Dec, [facility] [address] [id number] [address] [place] [id number] Dec, Mild persistent asthma witho ut complication J45.30 and Other chronic pain G89.29 [facility] [address] [id number] [address] [place] [phone] Nov, [facility] [address] [id number] [address] [place] [phone] Nov, Acute non-recurrent maxillar y sinusitis J01.00 [facility] [address] [id number] [address] [place] [phone] Nov, [facility] [address] [id number] [address] [place] [phone] Nov, [facility] [address] [id number] [address] [place] [phone] Oct, [facility] [address] [id number] [address] [place] [phone] Oct, Bipolar 1 disorder, depresse d, partial remission F31.75 ; Panic disorder with agoraphobia F40.01 and Chronic post-traumatic stress disorder (PTSD) F43.12 [facility] [address] [id number] [address] [place] [phone] Oct, Acute non-recurrent maxillar y sinusitis J01.00 [facility] [address] [id number] [address] [place] [address] Oct, [facility] [address] [id number] [address] [place] [phone] Oct, Diabetes E11.9 [facility] [address] [facility] [id number] [address] [place] [phone] September, Diabetes E11.9 [facility] [address] [id number] [address] [place] [phone] September, Diabetes E11.9 and Sinus tac hycardia R00.0 [facility] [address] [id number] [address] [place] [phone] September, [facility] [address] [facility] [id number] [address] [place] [address] September, [facility] [address] [id number] [address] [place] [phone] 13 Apr, 2017 Diabetes E11.9 and Lumbago w ith sciatica, right side M54.41 [facility] [address] [facility] [id number] [address] [place] [id number] Aug, [facility] [address] [id number] [address] [place] [phone] Jul, Bipolar 1 disorder, depresse d, moderate F31.32 ; Panic disorder with agoraphobia F40.01 and Chronic post-traumatic stress disorder (PTSD) F43.12 [facility] [address] [id number] [address] [place] [phone] Jul, Sore throat J02.9 [facility] [address] [facility] [id number] [address] [place] [phone] Jul, [facility] [address] [id number] [address] [place] [phone] Jul, [facility] [address] [place] [id number] [address] [place] [address] Jul, [facility] [address] [id number] [address] [place] [address] Jul, [facility] [address] [id number] [address] [place] [address] Jul, Sore throat J02.9 and Pharyn gitis, unspecified etiology J02.9 [facility] [address] [id number] [address] [place] [phone] Jun, [facility] [address] [facility] [id number] [address] [place] [address] Jun, Diabetes E11.9 [facility] [address] [facility] [id number] [address] [place] [phone] Jun, [facility] [address] [facility] [id number] [address] [place] [phone] Jun, [facility] [address] [id number] [address] [place] [phone] Jun, [facility] [address] [facility] [id number] [address] [place] [phone] Jun, [facility] [address] [facility] [id number] [address] [place] [id number] Jun, [facility] [address] [facility] [id number] [address] [place] [phone] Jun, [facility] [address] [facility] [id number] [address] [place] [phone] Jun, [facility] [address] [facility] [id number] [address] [place] [address] Jun, [facility] [address] [facility] [id number] [address] [place] [address] May, Diabetes E11.9 ; Other chron ic pain G89.29 ; Acute recurrent maxillary sinusitis J01.01 ; Bipolar I disorder with depression F31.9 and Anxiety disorder, unspecified F41.9 [facility] [address] [facility] [id number] [address] [place] [phone] May, [facility] [address] [facility] [id number] [address] [place] [address] May, Diabetes E11.9 ; Bipolar I d isorder with depression F31.9 ; Anxiety disorder, unspecified F41.9 ; Other chronic pain G89.29 and Acute recurrent maxillary sinusitis J01.01 [facility] [address] [facility] [id number] [address] [place] [phone] May, [facility] [address] [facility] [id number] [address] [place] [address] May, Attention deficit hyperactiv ity disorder (ADHD), predominantly inattentive type F90.0 [facility] [address] [facility] [id number] [address] [place] [phone] May, [facility] [address] [facility] [id number] [address] [place] [address] Apr, Attention deficit hyperactiv ity disorder (ADHD), predominantly inattentive type F90.0 and Non-seasonal allergic rhinitis due to other allergic trigger J30.89 [place] [address] [place] [id number] [address] [place] [phone] Apr, Bipolar 1 disorder, depresse d, moderate F31.32 ; Panic disorder with agoraphobia F40.01 and Chronic post-traumatic stress disorder (PTSD) F43.12 [place] [address] [place] [place] [id number] [address] [place] [address] Apr, Dental examination Z01.20 [place] [address] [place] [id number] [address] [place] [phone] Mar, [place] [address] [place] [id number] [address] [place] [address] Mar, [place] [address] [place] [id number] [place] [address] Mar, Bipolar I disorder with depr ession F31.9 and Anxiety disorder, unspecified F41.9 [place] [address] [facility] [id number] [address] [place] [phone] 08 Mar, 2016 Panic disorder with agorapho syd F40.01 ; Bipolar 1 disorder, depressed, moderate F31.32 and Chronic post-traumatic stress disorder (PTSD) F43.12 [place] [address] [place] [id number] [address] [place] [address] Mar, [place] [address] [place] [id number] [address] [place] [address] Mar, Dental caries K02.9 [place] [address] [place] [id number] [address] [place] [address] Feb, Lumbago with sciatica, left side M54.42 ; Lumbago with sciatica, right side M54.41 and Other chronic pain G89.29 [place] [address] [place] [id number] [address] [place] [phone] Feb, [facility] [address] [facility] [id number] [address] [place] [id number] 14 Feb, 2016 [facility] [address] [facility] [id number] [address] [place] [address] 13 Feb, 2016 Bipolar I disorder with depr ession F31.9 ; PTSD (post-traumatic stress disorder) F43.10 and Mood disorder F39 [facility] [address] [facility] [id number] [address] [place] [phone] [address] Feb, 2016 [facility] [address] [facility] [id number] [address] [place] [phone] 11 Feb, [address] [facility] [address] [facility] [id number] [address] [place] [phone] 07 Feb, 2016 [facility] [address] [facility] [id number] [address] [place] [phone] 03 Feb, 2016 Acute bronchitis, unspecifie d organism J20.9 [facility] [address] [facility] [id number] [address] [place] [phone] 26 Jan, 2016 Mood disorder F39 ; Migraine without aura and without status migrainosus, not intractable G43.009 ; Irritable bowel syndrome, unspecified type K58.9 ; Diabetes E11.9 and Encounter for immunization Z23 [facility] [address] [facility] [id number] [address] [place] [phone] [address] Jan, 2016 [facility] [address] [facility] [id number] [address] [place] [phone] 06 Jan, 2016 [facility] [address] [facility] [id number] [address] [place] [phone] Jan, [facility] [address] [facility] [id number] [address] [place] [phone] Jan, [facility] [address] [facility] [id number] [address] [place] [phone] Jan, [facility] [address] [facility] [id number] [address] [place] [address] Dec, Bipolar I disorder with depr ession F31.9 ; PTSD (post-traumatic stress disorder) F43.10 and Panic disorder with agoraphobia F40.01 [facility] [address] [id number] [address] [place] [phone] Dec, Chronic obstructive pulmonar y disease, unspecified COPD type J44.9 ; Tremor R25.[address] [facility] [address] [id number] [address] [place] [phone] Dec, [facility] [address] [id number] [address] [place] [address] Nov, Tremors of nervous system R2 5.1 and Cramping of feet R25.2 [facility] [address] [id number] [address] [place] [address] Nov, [facility] [address] [id number] [address] [place] [address] Nov, [facility] [address] [id number] [address] [place] [phone] Oct, Chronic obstructive pulmonar y disease, unspecified J44.9 [facility] [address] [id number] [address] [place] [address] Oct, [facility] [address] [id number] [address] [place] [address] Oct, Tremor R25.1 [facility] [address] [id number] [address] [place] [phone] Oct, Bipolar I disorder with depr ession F31.9 ; Diabetes E11.9 ; PTSD (post-traumatic stress disorder) F43.10 and Panic disorder with agoraphobia F40.01 [facility] [address] [id number] [address] [place] [address] Oct, Mood disorder F39 [facility] [address] [id number] [address] [place] [phone] September, [facility] [address] [facility] [id number] [address] [place] [address] September, Diabetes E11.9 ; Bipolar I d isorder with depression F31.9 ; PTSD (post-traumatic stress disorder) F43.10 and Panic disorder with agoraphobia F40.01 [place] [address] [place] [id number] [address] [place] [address] September, Mood disorder F39 ; Schizoaf fective disorder, unspecified type F25.9 ; Arthritis M19.90 ; Tremor R25.1 ; Acute non-recurrent frontal sinusitis J01.10 and Blood in stool K92.1 [place] [address] [place] [id number] [address] [place] [address] September, [place] [address] [place] [id number] [address] [place] [phone] September, Chronic obstructive pulmonar y disease, unspecified J44.9 [place] [address] [place] [id number] [address] [place] [address] September, Diabetes E11.9 [place] [address] [place] [id number] [address] [place] [address] Aug, Other bipolar disorder F31.8 9 and Anxiety disorder, unspecified F41.9 [place] [address] [place] [id number] [address] [place] [address] Aug, [place] [address] [place] [id number] [address] [place] [address] Aug, Diabetes E11.9 [place] [address] [place] [id number] [address] [place] [address] Aug, [place] [address] [place] [id number] [address] [place] [address] 14 Aug, 2015 Diabetes E11.9 ; Fatigue R53 .83 and Dizziness R42 [place] [address] [place] [id number] [address] [place] [address] 13 Aug, 2015 Other bipolar disorder F31.[address] [facility] [address] [id number] [address] [place] [address] 07 Aug, 2015 Generalized anxiety disorder F41.1 [facility] [address] [id number] [address] [place] [address] 07 Aug, 2015 Other bipolar disorder F31.8 9 and Anxiety disorder, unspecified F41.9 [facility] [address] [id number] [address] [place] [phone] Aug, [facility] [address] [id number] [address] [place] [address] Jul, [facility] [address] [id number] [address] [place] [phone] Jul, [facility] [address] [id number] [address] [place] [phone] Jul, Bronchitis J40 [facility] [address] [id number] [address] [place] [phone] Jul, Anxiety disorder F41.9 [facility] [address] [id number] [address] [place] [phone] Jul, Other bipolar disorder F31.8 9 and Anxiety disorder, unspecified F41.9 [facility] [address] [id number] [address] [place] [phone] 18 Jul, 2015 Other bipolar disorder F31.8 [address] [facility] [address] [id number] [address] [place] [phone] Jul, [facility] [address] [id number] [address] [place] [phone] Jul, [facility] [address] [id number] [address] [place] [phone] Jul, [facility] [address] [id number] [address] [place] [phone] Jul, Other bipolar disorder F31.8 9 and Anxiety disorder, unspecified F41.9 [facility] [address] [facility] [id number] [address] [place] [phone] Jun, GERD (gastroesophageal reflu x disease) K21.9 [facility] [address] [facility] [id number] [address] [place] [phone] Jun, [facility] [address] [place] [id number] [place] [address] May, [facility] [address] [place] [id number] [place] [address] May, Diabetes E11.9 ; Back pain M 54.9 ; GERD (gastroesophageal reflux disease) K21.9 ; Hypertension I10 and Peripheral neuropathy G62.9 [facility] [address] [place] [id number] [address] [place] [address] Mar, [facility] [address] [place] [id number] [address] [place] [address] Mar, [facility] [address] [place] [id number] [place] [address] Mar, Acute sinusitis J01.90 and O titis media, left H66.92 [facility] [address] [place] [id number] [address] [place] [address] Feb, [facility] [address] [place] [id number] [address] [place] [phone] Feb, [facility] [address] [place] [id number] [address] [place] [phone] [address], [address] [facility] [address] [place] [id number] [place] [phone] Feb, [facility] [address] [facility] [id number] [address] [place] [phone] [address], [address] [facility] [address] [place] [id number] [address] [place] [address] Jan, Diabetes 250.00 and Back higinio n 724.5 [facility] [address] [facility] [id number] [address] [place] [address] Jan, [facility] [address] [facility] [id number] [address] [place] [address] Dec, Diabetes 250.00 ; Benign ess ential hypertension 401.1 and Allergic rhinitis 477.9 [facility] [address] [facility] [id number] [address] [place] [address] Dec, [facility] [address] [facility] [id number] [address] [place] [address] Dec, [facility] [address] [facility] [id number] [address] [place] [address] Dec, Psychosis 298.9 [facility] [address] [place] [id number] [address] [place] [address] Dec, Medication side effect 995.2 0 and Generalized anxiety disorder 300.02 [facility] [address] [facility] [id number] [address] [place] [address] Dec, Acquired cognitive dysfuncti on 294.9 [facility] [address] [facility] [id number] [address] [place] [address] Dec, [facility] [address] [facility] [id number] [address] [place] [address] Dec, Unspecified myalgia and myos itis 729.1 and Generalized anxiety disorder 300.02 [facility] [address] [facility] [id number] [address] [place] [address] Nov, [facility] [address] [facility] [id number] [address] [place] [phone] Nov, [facility] [address] [facility] [id number] [address] [place] [phone] Nov, [facility] [address] [facility] [id number] [address] [place] [phone] Nov, Upper respiratory infection 465.9 and Chronic airway obstruction, not elsewhere classified [address] [facility] [address] [id number] [address] [place] [address] Nov, Hyponatremia 276.1 [facility] [address] [id number] [address] [place] [phone] Oct, [facility] [address] [id number] [address] [place] [phone] Oct, [facility] [address] [id number] [address] [place] [address] Oct, [facility] [address] [id number] [address] [place] [phone] Oct, [facility] [address] [id number] [address] [place] [address] Oct, Hyponatremia 276.1 [facility] [address] [id number] [address] [place] [phone] Oct, [facility] [address] [id number] [address] [place] [phone] Oct, [facility] [address] [id number] [address] [place] [id number] Oct, Generalized anxiety disorder 300.02 [facility] [address] [facility] [id number] [address] [place] [phone] Oct, Generalized anxiety disorder 300.[address] [facility] [address] [id number] [address] [place] [phone] Aug, [facility] [address] [id number] [address] [place] [id number] Aug, [facility] [address] [facility] [id number] [address] [place] [phone] Jul, [facility] [address] [id number] [address] [place] [id number] Jul, [facility] [address] [id number] [address] [place] [address], [place] [address] Jun, [facility] [address] [id number] [address] [place] [address], [place] [address] Jun, [facility] [address] [id number] [address] [place] [address], [place] [address] Jun, [facility] [address] [id number] [address] [place] [address], [place] [address] Jun, [facility] [address] [id number] [address] [place] [address], [place] [address] Jun, [facility] [address] [id number] [address] [place] [address], [place] [address] May, [facility] [address] [id number] [address] [place] [address], [place] [address] May, [facility] [address] [id number] [address] [place] [address], [place] [address] Apr, [facility] [address] [id number] [address] [place] [address], [place] [address] Apr, [facility] [address] [id number] [address] [place] [address], [place] [address] Apr, [facility] [address] [id number] [address] [place] [address], [place] [address] 18 Apr, 2013 [facility] [address] [id number] [address] [place] [address], [place] [address] 17 Apr, 2013 [facility] [address] [id number] [address] [place] [address], [place] [address] 17 Apr, 2013 [facility] [address] [id number] [address] [place] [address], [place] [address] 02 Apr, 2013 [facility] [address] [id number] [address] [place] [address], [place] [address] 02 Apr, 2013 [facility] [address] [id number] [address] [place] [address], [place] [address] Feb, [facility] [address] [id number] [address] [place] [address], [place] [address] Feb, [facility] [address] [id number] [address] [place] [address], [place] [address] Jan, [facility] [address] [id number] [address] [place] [address], [place] [address] Jan, [facility] [address] [id number] [address] [place] [address], [place] [address] Dec, [facility] [address] [id number] [address] [place] [address], [place] [address] Dec, [facility] [address] [id number] [address] [place] [address], [place] [address] Dec, [facility] [address] [id number] [address] [place] [address], [place] [address] Nov, [facility] [address] [id number] [address] [place] [address], [place] [address] Nov, [facility] [facility] [address] [id number] [address] [place] [address], [place] [address] Nov, [facility] [address] [id number] [address] [place] [address], [place] [address] Oct, [facility] [address] [id number] [address] [place] [address], [place] [address] Oct, [facility] [address] [id number] [address] [place] [address], [place] [address] Oct, [facility] [address] [id number] [address] [place] [address], [place] [address] September, [facility] [address] [id number] [address] [place] [address], [place] [address] September, [facility] [address] [id number] [address] [place] [address], [place] [address] September, [facility] [address] [id number] [address] [place] [address], [place] [address] 25 Aug, 2011 [facility] [address] [id number] [address] [place] [address], [place] [address] 20 Aug, 2011 [facility] [address] [id number] [address] [place] [address], [place] [address] 19 Aug, 2011 [facility] [address] [id number] [address] [place] [address], [place] [address] 16 Aug, 2011 [facility] [address] [id number] [address] [place] [address], [place] [address] Jul, [facility] [address] [id number] [address] [place] [address], [place] [address] 21 Jun, 2011 [facility] [address] [id number] [address] [place] [address], [place] [address] 14 Jun, 2011 [facility] [address] [id number] [address] [place] [address], [place] [address] 13 Jun, 2011 [facility] [address] [id number] [address] [place] [address], [place] [address] 07 Jun, 2011 [facility] [address] [id number] [address] [place] [address], [place] [address] 03 Jun, 2011 [facility] [address] [id number] [address] [place] [address], [place] [address] 13 May, 2011 [facility] [address] [id number] [address] [place] [address], [place] [address] May, [facility] [address] [id number] [address] [place] [address], [place] [address] May, [facility] [address] [id number] [address] [place] [address], [place] [address] 04 May, 2011 [facility] [address] [id number] [address] [place] [address], [place] [address] Apr, [facility] [address] [id number] [address] [place] [address], [place] [address] Apr, [facility] [address] [id number] [address] [place] [address], [place] [address] 05 Apr, 2011 [facility] [address] [id number] [address] [place] [address], [place] [address] 22 Mar, 2011 [facility] [address] [id number] [address] [place] [address], [place] [address] 11 Mar, 2011 [facility] [address] [id number] [address] [place] [address], [place] [address] 09 Mar, 2011 [facility] [address] [id number] [address] [place] [address], [place] [address] 13 Feb, 2011 [facility] [address] [id number] [address] [place] [address], [place] [address] 13 Feb, 2011 [facility] [address] [id number] [address] [place] [address], [place] [address] 13 Feb, 2011 [facility] [address] [id number] [address] [place] [address], [place] [address] Nov, [facility] [address] [id number] [address] [place] [address], [place] [address] September, [facility] [address] [id number] [address] [place] [address], [place] [address] 12 Aug, 2010 [facility] [address] [id number] [address] [place] [address], [place] [address] 14 Jul, 2010 [facility] [address] [id number] [address] [place] [address], [place] [address] May, [facility] [address] [id number] [address] [place] [address], [place] [address] 31 Apr, 2010 [facility] [address] [id number] [address] [place] [address], [place] [address] 30 Apr, 2010 [facility] [address] [id number] [address] [place] [address], [place] [address] 13 Apr, 2010 [facility] [address] [id number] [address] [place] [address] Apr, [facility] [address] [facility] [id number] [address] [place] [address] Apr, IMMUNIZATIONS No Known Immunizations SOCIAL HISTORY Never Assessed REASON FOR VISIT medication waste PLAN OF CARE VITAL SIGNS MEDICATIONS Unknown [...]
--- OUTSIDE RECORDS SUMMARY | 2019-07-17 10:47 | XMS REPORT ---
Author Author Sujey GANDHI Organization [facility] Address [address] [place] [address] Care Team Providers [employer] L[employer] Name Role Phone WHIT GANDHI Unavailable PROBLEMS Type Condition ICD9-CM Code ETP49-KT Code Onset Dates Condition S tatus SNOMED Code Problem Diabetes E11.9 Active 93538349 Problem GERD (gastroesophageal reflux disease) K21.9 Active 814015607 Problem Anxiety disorder, unspecified F41.9 Active 858295022 Problem Hypertension I10 Active 4718822 3 Problem Other bipolar disorder F31.89 Active 98137180 Problem Fibromyalgia M79.7 Active 3907031 7 Problem Panic disorder with agoraphobia F40.01 Active 80992374 Problem Chronic obstructive pulmonary disease, unspecified J44.9 Active 32004636 Problem Lumbago with sciatica, left side M54.42 Active 549141573 Problem Migraine without aura and without status migrain osus, not intractable G43.009 Active 333652607 Problem Lumbago with sciatica, right side M54.41 Active 716591640 Problem Fibrocystic disease of right breast N60.11 Active 94580584 Problem Other chronic pain G89.29 Active 8 5945674 Problem Fibrocystic disease of left breast N60.12 Active 19930678 Problem Irritable bowel syndrome with constipation K58.1 Active 373743716 Problem Arthritis M19.90 Active 8604947 Problem Abnormal mammogram of right breast R92.8 Active 992824822 Problem Daytime somnolence R40.0 Active 1 81660356538 Problem Bipolar affective disorder, remission status unspecified F31.9 Active 20185082 Problem Chronic post-traumatic stress disorder (PTSD) F43. 12 Active 734412837 Problem Bipolar 1 disorder, depressed, moderate F31.32 Active 56886668 Problem Schizoaffective disorder, bipolar type F25.0 Active 54086231 Problem Irritable bowel syndrome with both constipation and diarrh ea K58.2 Active 04592001 Problem Slow transit constipation K59.01 Acti ve 77448669 Problem Essential tremor G25.0 Active 609 754619 Problem Acute non-recurrent maxillary sinusitis J01.00 Active 93376370 Problem Back pain M54.9 Active 856055854 Problem Bipolar 1 disorder, depressed, partial remission F 31.75 Active 68548075 Problem Attention deficit hyperactiv ity disorder (ADHD), predominantly inattentive type F90.0 Active 43545656 Problem Bipolar I disorder with depression F31.9 Active 83533198 Problem Panlobular emphysema J43.1 Active 3155549 Problem Akathisia G25.71 Active 427204123 Problem Mild persistent asthma without complication J45.30 Active 273629639 Problem Moderate persistent asthma without complication J4 5.40 Active 723072288 ALLERGIES No Information ENCOUNTERS Encounter Location Date Diagnosis [place] [address] [address] [facility] [id number] [address] [place] [address] Mar, [place] [address] [address] Mar, [place] [address] [address] Mar, Anxiety disorder, unspecifie d F41.9 ; Other chronic pain G89.29 and Daytime somnolence R40.0 [place] [address] [address] [place] [id number] [address] [place] [phone] 20 Mar, 2018 Irritable bowel syndrome wit h both constipation and diarrhea K58.2 [place] [address] [address] [facility] [id number] [address] [place] [phone] 20 Mar, 2018 [place] [address] [address] [facility] [id number] [address] [place] [phone] 19 Mar, 2018 Hypertension I10 [place] [address] [address] [facility] [id number] [address] [place] [phone] 14 Mar, 2018 [place] [address] [address] [facility] [id number] [address] [place] [phone] 12 Mar, 2018 [facility] [address] [place] [id number] [address] [place] [phone] Mar, [facility] [address] [facility] [id number] [address] [place] [phone] Mar, Diabetes E11.9 [facility] [address] [facility] [id number] [address] [place], [place] [phone] Mar, [facility] [address] [facility] [id number] [address] [place] [phone] Feb, Daytime somnolence R40.0 and Anxiety disorder, unspecified F41.9 [facility] [address] [facility] [id number] [address] [place] [phone] Feb, [facility] [address] [facility] [id number] [address] [place] [phone] Feb, [place] [address] [address] [facility] [id number] [address] [place] [phone] Feb, Tremors of nervous system R2 5.1 and Acute swimmer''s ear of right side H60.331 [facility] [address] [facility] [id number] [address] [place] [phone] Feb, Cerebrovascular accident (CV A) due to occlusion of right cerebellar artery I63.541 and Hypertension I10 [facility] [address] [facility] [id number] [address] [place] [phone] Feb, [place] [address] [address] [place] [id number] [address] [place] [phone] Feb, Cerebrovascular accident (CV A) due to occlusion of right cerebellar artery I63.[address] [facility] [id number] [place] [id number] Feb, Hyponatremia E87.1 [facility] [address] [facility] [id number] [address] [place] [phone] Feb, [facility] [address] [facility] [id number] [address] [place] [phone] Feb, Daytime somnolence R40.0 [facility] [address] [place] [id number] [address] [place] [phone] Feb, [facility] [address] [place] [id number] [address] [place] [phone] Jan, [facility] [address] [facility] [id number] [address] [place] [phone] Jan, [place] [address] [place] [id number] [place] [address] Jan, Chronic obstructive pulmonar y disease, unspecified J44.9 and Anxiety disorder, unspecified F41.9 [place] [address] [address] [place] [id number] [place] [address] Jan, Hypertension I10 ; Fibromyal medhat M79.7 and Lumbago with sciatica, left side M54.42 [place] [address] [address] [place] [id number] [address] [place] [phone] Jan, [place] [address] [place] [id number] [place] [phone] 20 Jan, 2018 Cerebrovascular accident (CV A) due to occlusion of right cerebellar artery I63.541 [place] [address] [address] [place] [id number] [address] [place] [phone] 19 Jan, 2018 [place] [address] [address] [place] [id number] [address] [place] [phone] 13 Jan, 2018 Arthritis M19.90 [place] [address] [address] [place] [id number] [address] [place] [phone] 07 Jan, 2018 [place] [address] [address] [place] [id number] [address] [place] [phone] 04 Jan, 2018 Abnormal mammogram of right breast R92.8 [place] [address] [address] [place] [id number] [place] [phone] Dec, Daytime somnolence R40.0 and Right otitis media with effusion H65.91 [place] [address] [address] [place] [id number] [place] [phone] Dec, [facility] [address] [id number] [address] [place] [phone] Dec, Cerebrovascular accident (CV A) due to occlusion of right cerebellar artery I63.541 [facility] [address] [id number] [address] [place] [phone] Dec, [facility] [address] [id number] [address] [place] [phone] Dec, [facility] [address] [id number] [address] [place] [phone] Nov, Bipolar 1 disorder, depresse d, partial remission F31.75 and Panic disorder with agoraphobia F40.01 [facility] [address] [id number] [address] [place] [phone] Nov, Panlobular emphysema J43.1 [facility] [address] [id number] [address] [place] [phone] Nov, Cerebrovascular accident (CV A) due to occlusion of right cerebellar artery I63.541 and Acute non-recurrent maxillary sinusitis J01.00 [facility] [address] [id number] [address] [place] [phone] Nov, Panlobular emphysema J43.1 [facility] [address] [id number] [address] [place] [phone] Nov, [facility] [address] [id number] [address] [place] [phone] Nov, [facility] [address] [id number] [address] [place] [phone] Nov, [facility] [address] [id number] [address] [place] [phone] Nov, [facility] [address] [id number] [address] [place] [phone] Nov, [facility] [address] [facility] [id number] [address] [place] [phone] Nov, [facility] [address] [facility] [id number] [address] [place] [phone] Nov, [facility] [address] [facility] [id number] [address] [place] [address] Nov, Mild persistent asthma witho ut complication J45.30 and Irritable bowel syndrome with both constipation and diarrhea K58.2 [facility] [address] [facility] [id number] [address] [place] [phone] Nov, [facility] [address] [facility] [id number] [address] [place] [phone] Oct, [facility] [address] [place] [id number] [address] [place] [phone] Oct, [facility] [address] [address] Oct, Type 2 diabetes mellitus wit h diabetic neuropathy, unspecified whether tank terminal gauger insulin use E11.40 ; Diabetes E11.9 ; Slow transit constipation K59.01 ; Edema of both legs R60.0 and Dysfunction of right eustachian tube H69.81 [facility] [address] [place] [id number] [address] [place] [phone] Oct, Frequent headaches R51 [facility] [address] [place] [id number] [address] [place] [phone] Oct, [facility] [address] [place] [id number] [address] [place] [phone] Oct, [facility] [address] [facility] [id number] [address] [place] [phone] Oct, [facility] [address] [place] [id number] [address] [place] [phone] Oct, [facility] [address] [place] [id number] [address] [place] [phone] Oct, [facility] [address] [place] [id number] [address] [place] [phone] Oct, [facility] [address] [id number] [address] [place] [phone] Oct, [facility] [address] [facility] [id number] [address] [place] [phone] Oct, [facility] [address] [facility] [id number] [address] [place] [phone] September, Frequent headaches R51 [facility] [address] [facility] [id number] [address] [place] [phone] September, Bilateral otitis media with effusion H65.93 ; Dizziness R42 and Essential tremor G25.0 [facility] [address] [facility] [id number] [address] [place] [phone] September, Chronic obstructive pulmonar y disease, unspecified COPD type J44.9 [facility] [address] [facility] [id number] [address] [place] [phone] September, Chronic obstructive pulmonar y disease, unspecified COPD type J44.9 [facility] [address] [facility] [id number] [address] [place] [phone] September, Migraine without aura and wi thout status migrainosus, not intractable G43.009 [facility] [address] [facility] [id number] [address] [place] [phone] September, [facility] [address] [facility] [id number] [address] [place] [phone] September, [facility] [address] [facility] [id number] [address] [place] [phone] September, [facility] [address] [facility] [id number] [address] [place] [phone] September, Frequent headaches R51 [facility] [address] [facility] [id number] [address] [place] [phone] Aug, [facility] [address] [place] [id number] [address] [place] [phone] Aug, Breast mass, right N63.10 [facility] [address] [place] [id number] [address] [place] [phone] Aug, Breast lump N63.0 [facility] [address] [place] [id number] [address] [place] [phone] Aug, [facility] [address] [place] [id number] [place] [phone] Aug, Bipolar affective disorder, remission status unspecified F31.9 and Diabetes E11.9 [place] [address] [place] [id number] [place] [address] Aug, Diabetes E11.9 ; Schizoaffec tive disorder, bipolar type F25.0 ; Pharyngitis due to other organism J02.8 ; Panlobular emphysema J43.1 and Irritable bowel syndrome with both constipation and diarrhea K58.2 [place] [address] [place] [id number] [address] [place] [phone] Aug, Abnormal mammogram R92.8 [place] [address] [place] [id number] [place] [phone] Aug, [place] [address] [place] [id number] [place] [phone] Aug, Bipolar 1 disorder, depresse d, moderate F31.32 ; Panic disorder with agoraphobia F40.01 and Chronic post-traumatic stress disorder (PTSD) F43.12 [place] [id number] [place] [phone] Aug, [place] [address] [address] Aug, [place] [address] [place] [id number] [address] [place] [phone] Aug, [place] [address] [phone] Jul, [facility] [address] [facility] [id number] [address] [place] [phone] 20 Jul, 2017 Mild persistent asthma witho ut complication J45.30 [facility] [address] [facility] [id number] [address] [place] [phone] 19 Jul, 2017 Mild persistent asthma witho ut complication J45.30 [facility] [address] [facility] [id number] [address] [place] [phone] 15 Jul, 2017 Bipolar affective disorder, remission status unspecified F31.9 ; Diabetes E11.9 and Irritable bowel syndrome with constipation K58.1 [facility] [address] [facility] [id number] [address] [place] [phone] Jul, [facility] [address] [facility] [id number] [address] [place] [phone] Jul, [facility] [address] [facility] [id number] [address] [place] [phone] Jul, Frequent headaches R51 [facility] [address] [facility] [id number] [address] [place] [phone] Jul, [facility] [address] [facility] [id number] [address] [place] [phone] Jul, [facility] [address] [facility] [id number] [address] [place] [phone] Jul, [facility] [address] [facility] [id number] [address] [place] [address] Jul, Frequent headaches R51 ; Fib rocystic disease of left breast N60.12 ; Fibrocystic disease of right breast N60.11 and Diabetes E11.9 [facility] [address] [facility] [id number] [address] [place] [phone] Jul, [facility] [address] [facility] [id number] [address] [place] [phone] Jul, [facility] [address] [facility] [id number] [address] [place] [address] Jun, Exudative tonsillitis J03.90 [facility] [address] [facility] [id number] [address] [place] [phone] 20 Jun, 2017 [facility] [address] [facility] [id number] [address] [place] [phone] 19 Jun, 2017 [facility] [address] [facility] [id number] [address] [place] [address] 15 Jun, 2017 Mild persistent asthma witho ut complication J45.30 ; Chronic obstructive pulmonary disease, unspecified COPD type J44.9 and Exudative tonsillitis J03.90 [facility] [address] [facility] [id number] [address] [place] [phone] 13 Jun, 2017 Encounter for immunization Z 23 [facility] [address] [facility] [id number] [address] [place] [phone] 12 Jun, 2017 [facility] [address] [facility] [id number] [address] [place] [phone] Jun, [facility] [address] [facility] [id number] [address] [place] [phone] 09 Jun, 2017 [facility] [address] [facility] [id number] [address] [place] [phone] 06 Jun, 2017 Tonsillitis J03.90 [facility] [address] [facility] [id number] [address] [place] [phone] 05 Jun, 2017 [facility] [address] [facility] [id number] [address] [place] [phone] 03 Jun, 2017 Acute non-recurrent maxillar y sinusitis J01.00 [facility] [address] [facility] [id number] [address] [place] [phone] Jun, [facility] [address] [facility] [id number] [address] [place] [phone] May, [facility] [address] [facility] [id number] [address] [place] [phone] May, [facility] [address] [facility] [id number] [address] [place] [phone] May, GERD (gastroesophageal reflu x disease) K21.9 [facility] [address] [facility] [id number] [address] [place] [phone] May, Migraine without aura and wi thout status migrainosus, not intractable G43.009 [place] [address] [facility] [id number] [address] [place] [phone] May, [place] [address] [place] [id number] [address] [place] [phone] May, [place] [address] [place] [id number] [address] [place] [phone] May, Panlobular emphysema J43.1 a nd Acute non-recurrent maxillary sinusitis J01.00 [place] [address] [place] [id number] [address] [place] [phone] May, Bipolar 1 disorder, depresse d, moderate F31.32 ; Panic disorder with agoraphobia F40.01 and Akathisia G25.71 [place] [address] [place] [id number] [address] [place] [phone] Apr, [place] [address] [place] [id number] [address] [place] [phone] Apr, [place] [address] [place] [id number] [address] [place] [phone] Apr, Acute non-recurrent maxillar y sinusitis J01.00 [place] [address] [facility] [id number] [address] [place] [phone] Apr, Panlobular emphysema J43.1 [place] [address] [facility] [id number] [address] [place] [phone] Apr, [facility] [address] [facility] [id number] [address] [place] [phone] Apr, Exudative tonsillitis J03.90 and Sore throat J02.9 [facility] [address] [place] [id number] [address] [place] [phone] Mar, [facility] [address] [place] [id number] [place] [address] Mar, Acute non-recurrent maxillar y sinusitis J01.00 [place] [address] [address] Mar, [facility] [address] [address] Mar, Panlobular emphysema J43.1 a nd Diabetes E11.9 [place] [address] [address] Mar, [facility] [address] [address] Feb, Wheezing R06.2 and Acute rec urrent pansinusitis J01.41 [place] [address] [address] Feb, [place] [address] [address] Feb, Acute non-recurrent maxillar y sinusitis J01.00 [place] [address] [id number] Feb, Chronic obstructive pulmonar y disease, unspecified J44.9 [facility] [address] [place] [id number] [address] [place] [phone] Feb, Hypoxemia R09.02 and Chronic obstructive pulmonary disease, unspecified J44.9 [place] [address] [address] [place] [id number] [address] [place] [phone] Jan, Bipolar 1 disorder, depresse d, moderate F31.32 ; Panic disorder with agoraphobia F40.01 ; Chronic post-traumatic stress disorder (PTSD) F43.12 ; Diabetes E11.9 and Moderate persistent asthma without complication J45.40 [facility] [address] [id number] [address] [place] [phone] 22 Jan, 2017 [facility] [address] [id number] [address] [place] [phone] Jan, Acute non-recurrent maxillar y sinusitis J01.00 [facility] [address] [id number] [address] [place] [id number] 18 Jan, 2017 [facility] [address] [id number] [address] [place] [phone] Jan, [facility] [address] [id number] [address] [place] [phone] Jan, [facility] and Hypoxemia R09.02 [facility] [address] [id number] [address] [place] [phone] Jan, Moderate persistent asthma w ithout complication J45.40 and Hypoxemia R09.02 [facility] [address] [id number] [address] [place] [phone] Jan, [facility] [address] [id number] [address] [place] [phone] Dec, Acute non-recurrent maxillar y sinusitis J01.00 [facility] [address] [id number] [address] [place] [phone] Dec, Chronic obstructive pulmonar y disease, unspecified J44.9 [facility] [address] [id number] [address] [place] [phone] Dec, [facility] [address] [id number] [address] [place] [phone] Dec, Mild persistent asthma witho ut complication J45.30 and Other chronic pain G89.29 [facility] [address] [id number] [address] [place] [phone] Nov, [facility] [address] [id number] [address] [place] [phone] Nov, Acute non-recurrent maxillar y sinusitis J01.00 [facility] [address] [id number] [address] [place] [phone] Nov, [facility] [address] [id number] [address] [place] [phone] Nov, [facility] [address] [id number] [address] [place] [phone] Oct, [facility] [address] [id number] [address] [place] [phone] Oct, Bipolar 1 disorder, depresse d, partial remission F31.75 ; Panic disorder with agoraphobia F40.01 and Chronic post-traumatic stress disorder (PTSD) F43.12 [facility] [address] [id number] [address] [place] [phone] Oct, Acute non-recurrent maxillar y sinusitis J01.00 [facility] [address] [id number] [address] [place] [phone] Oct, [facility] [address] [id number] [address] [place] [phone] Oct, Diabetes E11.9 [facility] [address] [facility] [id number] [address] [place] [phone] September, Diabetes E11.9 [facility] [address] [id number] [address] [place] [phone] September, Diabetes E11.9 and Sinus tac hycardia R00.0 [facility] [address] [id number] [address] [place] [phone] September, [facility] [address] [facility] [id number] [address] [place] [phone] September, [facility] [address] [id number] [address] [place] [phone] 13 Apr, 2017 Diabetes E11.9 and Lumbago w ith sciatica, right side M54.41 [facility] [address] [facility] [id number] [address] [place] [phone] Aug, [facility] [address] [id number] [address] [place] [phone] Jul, Bipolar 1 disorder, depresse d, moderate F31.32 ; Panic disorder with agoraphobia F40.01 and Chronic post-traumatic stress disorder (PTSD) F43.12 [facility] [address] [id number] [address] [place] [phone] Jul, Sore throat J02.9 [facility] [address] [facility] [id number] [address] [place] [phone] Jul, [facility] [address] [id number] [address] [place] [phone] Jul, [facility] [address] [place] [id number] [address] [place] [phone] Jul, [facility] [address] [id number] [address] [place] [phone] Jul, [facility] [address] [id number] [address] [place] [phone] Jul, Sore throat J02.9 and Pharyn gitis, unspecified etiology J02.9 [facility] [address] [id number] [address] [place] [phone] Jun, [facility] [address] [facility] [id number] [address] [place] [phone] Jun, Diabetes E11.9 [facility] [address] [facility] [id number] [address] [place] [phone] Jun, [facility] [address] [facility] [id number] [address] [place] [phone] Jun, [facility] [address] [id number] [address] [place] [phone] Jun, [facility] [address] [facility] [id number] [address] [place] [phone] Jun, [facility] [address] [facility] [id number] [address] [place] [phone] Jun, [facility] [address] [facility] [id number] [address] [place] [phone] Jun, [facility] [address] [facility] [id number] [address] [place] [phone] Jun, [facility] [address] [facility] [id number] [address] [place] [phone] Jun, [facility] [address] [facility] [id number] [address] [place] [phone] May, Diabetes E11.9 ; Other chron ic pain G89.29 ; Acute recurrent maxillary sinusitis J01.01 ; Bipolar I disorder with depression F31.9 and Anxiety disorder, unspecified F41.9 [facility] [address] [facility] [id number] [address] [place] [phone] May, [facility] [address] [facility] [id number] [address] [place] [phone] May, Diabetes E11.9 ; Bipolar I d isorder with depression F31.9 ; Anxiety disorder, unspecified F41.9 ; Other chronic pain G89.29 and Acute recurrent maxillary sinusitis J01.01 [facility] [address] [facility] [id number] [address] [place] [phone] May, [facility] [address] [facility] [id number] [address] [place] [phone] May, Attention deficit hyperactiv ity disorder (ADHD), predominantly inattentive type F90.0 [facility] [address] [facility] [id number] [address] [place] [phone] May, [facility] [address] [facility] [id number] [address] [place] [phone] Apr, Attention deficit hyperactiv ity disorder (ADHD), predominantly inattentive type F90.0 and Non-seasonal allergic rhinitis due to other allergic trigger J30.89 [facility] [address] [place] [id number] [address] [place] [phone] Apr, Bipolar 1 disorder, depresse d, moderate F31.32 ; Panic disorder with agoraphobia F40.01 and Chronic post-traumatic stress disorder (PTSD) F43.12 [facility] [address] [place] [id number] [address] [place] [phone] Apr, Dental examination Z01.20 [facility] [address] [place] [id number] [address] [place] [phone] Mar, [facility] [address] [place] [id number] [address] [place] [phone] Mar, [facility] [address] [place] [id number] [place] [phone] Mar, Bipolar I disorder with depr ession F31.9 and Anxiety disorder, unspecified F41.9 [facility] [address] [facility] [id number] [address] [place] [phone] 08 Mar, 2016 Panic disorder with agorapho syd F40.01 ; Bipolar 1 disorder, depressed, moderate F31.32 and Chronic post-traumatic stress disorder (PTSD) F43.12 [facility] [address] [place] [id number] [address] [place] [phone] Mar, [facility] [address] [place] [id number] [address] [place] [phone] Mar, Dental caries K02.9 [facility] [address] [place] [id number] [address] [place] [phone] Feb, Lumbago with sciatica, left side M54.42 ; Lumbago with sciatica, right side M54.41 and Other chronic pain G89.29 [facility] [address] [place] [id number] [address] [place] [phone] Feb, [facility] [address] [facility] [id number] [address] [place] [phone] 14 Feb, 2016 [facility] [address] [facility] [id number] [address] [place] [phone] 13 Feb, 2016 Bipolar I disorder with depr ession F31.9 ; PTSD (post-traumatic stress disorder) F43.10 and Mood disorder F39 [facility] [address] [facility] [id number] [address] [place] [phone] 13 Feb, 2016 [facility] [address] [facility] [id number] [address] [place] [phone] 11 Feb, 2016 Dental examination Z01.20 [facility] [address] [facility] [id number] [address] [place] [phone] 07 Feb, 2016 [facility] [address] [facility] [id number] [address] [place] [phone] 03 Feb, 2016 Acute bronchitis, unspecifie d organism J20.9 [facility] [address] [facility] [id number] [address] [place] [phone] 26 Jan, 2016 Mood disorder F39 ; Migraine without aura and without status migrainosus, not intractable G43.009 ; Irritable bowel syndrome, unspecified type K58.9 ; Diabetes E11.9 and Encounter for immunization Z23 [facility] [address] [facility] [id number] [address] [place] [phone] 15 Jan, 2016 [facility] [address] [facility] [id number] [address] [place] [phone] 06 Jan, 2016 [facility] [address] [facility] [id number] [address] [place] [phone] Jan, [facility] [address] [facility] [id number] [address] [place] [phone] Jan, [facility] [address] [facility] [id number] [address] [place] [phone] Jan, [facility] [address] [facility] [id number] [address] [place] [phone] Dec, Bipolar I disorder with depr ession F31.9 ; PTSD (post-traumatic stress disorder) F43.10 and Panic disorder with agoraphobia F40.01 [facility] [address] [id number] [address] [place] [phone] Dec, Chronic obstructive pulmonar y disease, unspecified COPD type J44.9 ; Tremor R25.1 and Anxiety F41.9 [facility] [address] [id number] [address] [place] [phone] Dec, [facility] [address] [id number] [address] [place] [phone] Nov, Tremors of nervous system R2 5.1 and Cramping of feet R25.2 [facility] [address] [id number] [address] [place] [phone] Nov, [facility] [address] [id number] [address] [place] [phone] Nov, [facility] [address] [id number] [address] [place] [phone] Oct, Chronic obstructive pulmonar y disease, unspecified J44.9 [facility] [address] [id number] [address] [place] [phone] Oct, [facility] [address] [id number] [address] [place] [phone] Oct, Tremor R25.1 [facility] [address] [id number] [address] [place] [phone] Oct, Bipolar I disorder with depr ession F31.9 ; Diabetes E11.9 ; PTSD (post-traumatic stress disorder) F43.10 and Panic disorder with agoraphobia F40.01 [facility] [address] [id number] [address] [place] [phone] Oct, Mood disorder F39 [facility] [address] [id number] [address] [place] [phone] September, [facility] [address] [facility] [id number] [address] [place] [phone] September, Diabetes E11.9 ; Bipolar I d isorder with depression F31.9 ; PTSD (post-traumatic stress disorder) F43.10 and Panic disorder with agoraphobia F40.01 [place] [address] [place] [id number] [address] [place] [phone] September, Mood disorder F39 ; Schizoaf fective disorder, unspecified type F25.9 ; Arthritis M19.90 ; Tremor R25.1 ; Acute non-recurrent frontal sinusitis J01.10 and Blood in stool K92.1 [place] [address] [place] [id number] [address] [place] [phone] September, [place] [address] [place] [id number] [address] [place] [phone] September, Chronic obstructive pulmonar y disease, unspecified J44.9 [place] [address] [place] [id number] [address] [place] [phone] September, Diabetes E11.9 [place] [address] [place] [id number] [address] [place] [phone] Aug, Other bipolar disorder F31.8 9 and Anxiety disorder, unspecified F41.9 [place] [address] [place] [id number] [address] [place] [phone] Aug, [place] [address] [place] [id number] [address] [place] [phone] Aug, Diabetes E11.9 [place] [address] [place] [id number] [address] [place] [address] Aug, [place] [facility] [address] [place] [id number] [address] [place] [phone] 14 Aug, 2015 Diabetes E11.9 ; Fatigue R53 .83 and Dizziness R42 [place] [address] [place] [id number] [address] [place] [phone] 13 Aug, 2015 Other bipolar disorder F31.8 9 [facility] [address] [id number] [address] [place] [phone] 07 Aug, 2015 Generalized anxiety disorder F41.1 [facility] [address] [id number] [address] [place] [phone] 07 Aug, 2015 Other bipolar disorder F31.8 9 and Anxiety disorder, unspecified F41.9 [facility] [address] [id number] [address] [place] [phone] Aug, [facility] [address] [id number] [address] [place] [phone] Jul, [facility] [address] [id number] [address] [place] [phone] Jul, [facility] [address] [id number] [address] [place] [phone] Jul, Bronchitis J40 [facility] [address] [id number] [address] [place] [phone] Jul, Anxiety disorder F41.9 [facility] [address] [id number] [address] [place] [phone] Jul, Other bipolar disorder F31.8 9 and Anxiety disorder, unspecified F41.9 [facility] [address] [id number] [address] [place] [phone] 18 Jul, 2015 Other bipolar disorder F31.8 9 and Fibromyalgia M79.7 [facility] [address] [id number] [address] [place] [phone] Jul, [facility] [address] [id number] [address] [place] [phone] Jul, [facility] [address] [id number] [address] [place] [phone] Jul, [facility] [address] [id number] [address] [place] [phone] Jul, Other bipolar disorder F31.8 9 and Anxiety disorder, unspecified F41.9 [facility] [address] [facility] [id number] [address] [place] [phone] Jun, GERD (gastroesophageal reflu x disease) K21.9 [facility] [address] [facility] [id number] [address] [place] [phone] Jun, [facility] [address] [place] [id number] [place] [address] May, [facility] [address] [place] [id number] [place] [address] May, Diabetes E11.9 ; Back pain M 54.9 ; GERD (gastroesophageal reflux disease) K21.9 ; Hypertension I10 and Peripheral neuropathy G62.9 [facility] [address] [place] [id number] [address] [place] [phone] Mar, [facility] [address] [place] [id number] [address] [place] [phone] Mar, [facility] [address] [place] [id number] [place] [phone] Mar, Acute sinusitis J01.90 and O titis media, left H66.92 [facility] [address] [place] [id number] [address] [place] [phone] Feb, [facility] [address] [place] [id number] [address] [place] [phone] Feb, [facility] [address] [place] [id number] [address] [place] [phone] 15 Feb, 2015 [facility] [address] [place] [id number] [place] [phone] Feb, [facility] [address] [facility] [id number] [address] [place] [phone] 29 Jan, 2015 [facility] [address] [place] [id number] [address] [place] [phone] Jan, Diabetes 250.00 and Back higinio n 724.5 [facility] [address] [facility] [id number] [address] [place] [phone] Jan, [facility] [address] [facility] [id number] [address] [place] [address] Dec, Diabetes 250.00 ; Benign ess ential hypertension 401.1 and Allergic rhinitis 477.9 [facility] [address] [facility] [id number] [address] [place] [phone] Dec, [facility] [address] [facility] [id number] [address] [place] [phone] Dec, [facility] [address] [facility] [id number] [address] [place] [phone] Dec, Psychosis 298.9 [facility] [address] [place] [id number] [address] [place] [phone] Dec, Medication side effect 995.2 0 and Generalized anxiety disorder 300.02 [facility] [address] [facility] [id number] [address] [place] [phone] Dec, Acquired cognitive dysfuncti on 294.9 [facility] [address] [facility] [id number] [address] [place] [phone] Dec, [facility] [address] [facility] [id number] [address] [place] [phone] Dec, Unspecified myalgia and myos itis 729.1 and Generalized anxiety disorder 300.02 [facility] [address] [facility] [id number] [address] [place] [phone] Nov, [facility] [address] [facility] [id number] [address] [place] [phone] Nov, [facility] [address] [facility] [id number] [address] [place] [phone] Nov, [facility] [address] [facility] [id number] [address] [place] [phone] Nov, Upper respiratory infection 465.9 and Chronic airway obstruction, not elsewhere classified 496 [facility] [address] [id number] [address] [place] [phone] Nov, Hyponatremia 276.1 [facility] [address] [id number] [address] [place] [phone] Oct, [facility] [address] [id number] [address] [place] [phone] Oct, [facility] [address] [id number] [address] [place] [phone] Oct, [facility] [address] [id number] [address] [place] [phone] Oct, [facility] [address] [id number] [address] [place] [phone] Oct, Hyponatremia 276.1 [facility] [address] [id number] [address] [place] [phone] Oct, [facility] [address] [id number] [address] [place] [phone] Oct, [facility] [address] [id number] [address] [place] [phone] Oct, Generalized anxiety disorder 300.02 [facility] [address] [facility] [id number] [address] [place] [phone] Oct, Generalized anxiety disorder 300.02 and Diabetes 250.00 [facility] [address] [id number] [address] [place] [phone] Aug, [facility] [address] [id number] [address] [place] [phone] Aug, [facility] [address] [facility] [id number] [address] [place] [phone] Jul, [facility] [address] [id number] [address] [place] [phone] Jul, [facility] [address] [id number] [address] [place] [address], [place] [address] Jun, [facility] [address] [id number] [address] [place] [address], [place] [address] Jun, [facility] [address] [id number] [address] [place] [address], [place] [phone] Jun, [facility] [address] [id number] [address] [place] [address], [place] [address] Jun, [facility] [address] [id number] [address] [place] [address], [place] [address] Jun, [facility] [address] [id number] [address] [place] [address], [place] [address] May, [facility] [address] [id number] [address] [place] [address], [place] [address] May, [facility] [address] [id number] [address] [place] [address], [place] [address] Apr, [facility] [address] [id number] [address] [place] [address], [place] [address] Apr, [facility] [address] [id number] [address] [place] [address], [place] [address] Apr, [facility] [address] [id number] [address] [place] [address], [place] [address] 18 Apr, 2013 [facility] [address] [id number] [address] [place] [address], [place] [address] 17 Apr, 2013 [facility] [address] [id number] [address] [place] [address], [place] [address] 17 Apr, 2013 [facility] [address] [id number] [address] [place] [address], [place] [address] 02 Apr, 2013 [facility] [address] [id number] [address] [place] [address], [place] [address] 02 Apr, 2013 [facility] [address] [id number] [address] [place] [address], [place] [address] Feb, [facility] [address] [id number] [address] [place] [address], [place] [address] Feb, [facility] [address] [id number] [address] [place] [address], [place] [address] Jan, [facility] [address] [id number] [address] [place] [address], [place] [address] Jan, [facility] [facility] [address] [id number] [address] [place] [address], [place] [address] Dec, [facility] [address] [id number] [address] [place] [address], [place] [address] Dec, [facility] [address] [id number] [address] [place] [address], [place] [address] Dec, [facility] [address] [id number] [address] [place] [address], [place] [address] Nov, [facility] [address] [id number] [address] [place] [address], [place] [address] Nov, [facility] [address] [id number] [address] [place] [address], [place] [address] Nov, [facility] [address] [id number] [address] [place] [address], [place] [address] Oct, [facility] [address] [id number] [address] [place] [address], [place] [address] Oct, [facility] [address] [id number] [address] [place] [address], [place] [address] Oct, [facility] [address] [id number] [address] [place] [address], [place] [address] September, [facility] [address] [id number] [address] [place] [address], [place] [address] September, [facility] [address] [id number] [address] [place] [address], [place] [address] September, [facility] [address] [id number] [address] [place] [address], [place] [address] 25 Aug, 2011 [facility] [address] [id number] [address] [place] [address], [place] [address] 20 Aug, 2011 [facility] [address] [id number] [address] [place] [address], [place] [address] 19 Aug, 2011 [facility] [address] [id number] [address] [place] [address], [place] [address] 16 Aug, 2011 [facility] [address] [id number] [address] [place] [address], [place] [address] Jul, [facility] [address] [id number] [address] [place] [address], [place] [address] 21 Jun, 2011 [facility] [address] [id number] [address] [place] [address], [place] [address] 14 Jun, 2011 [facility] [address] [id number] [address] [place] [address], [place] [address] 13 Jun, 2011 [facility] [address] [id number] [address] [place] [address], [place] [address] 07 Jun, 2011 [facility] [address] [id number] [address] [place] [address], [place] [address] 03 Jun, 2011 [facility] [address] [id number] [address] [place] [address], [place] [address] 13 May, 2011 [facility] [address] [id number] [address] [place] [address], [place] [address] May, [facility] [address] [id number] [address] [place] [address], [place] [address] May, [facility] [address] [id number] [address] [place] [address], [place] [address] 04 May, 2011 [facility] [address] [id number] [address] [place] [address], [place] [address] Apr, [facility] [address] [id number] [address] [place] [address], [place] [address] Apr, [facility] [address] [id number] [address] [place] [address], [place] [address] 05 Apr, 2011 [facility] [address] [id number] [address] [place] [address], [place] [address] 22 Mar, 2011 [facility] [address] [id number] [address] [place] [address], [place] [address] 11 Mar, 2011 [facility] [address] [id number] [address] [place] [address], [place] [address] 09 Mar, 2011 [facility] [address] [id number] [address] [place] [address], [place] [address] 13 Feb, 2011 [facility] [address] [id number] [address] [place] [address], [place] [address] 13 Feb, 2011 [facility] [address] [id number] [address] [place] [address], [place] [address] 13 Feb, 2011 [facility] [address] [id number] [address] [place] [address], [place] [address] Nov, [facility] [address] [id number] [address] [place] [address], [place] [address] September, [facility] [address] [id number] [address] [place] [address], [place] [address] 12 Aug, 2010 [facility] [address] [id number] [address] [place] [address], [place] [address] 14 Jul, 2010 [facility] [address] [id number] [address] [place] [address], [place] [address] May, [facility] [address] [id number] [address] [place] [address], [place] [address] 31 Apr, 2010 [facility] [address] [id number] [address] [place] [address], [place] [address] 30 Apr, 2010 [facility] [address] [id number] [address] [place] [address], [place] [address] 13 Apr, 2010 [facility] [address] [id number] [address] [place] [address] Apr, [facility] [address] [facility] [id number] [address] [place] [address] Apr, IMMUNIZATIONS No Known Immunizations SOCIAL HISTORY Never Assessed REASON FOR VISIT Controlled Med Refill 03/30/18 PLAN OF CARE VITAL SIGNS MEDICATIONS Medication Instructions Dosage Frequency Start Date End Date Duration S tatus Adderall XR 30 MG Orally Once a day for depression 1 capsule in the morning Mar, 28 days Active Lorazepam 1 MG Orally in the AM and noon and 4pm 1 tablet Jul, 28 days Active Cody 7.5-325 MG Orally 3 times a day 1 tablet as needed 8h Mar, 28 days Active RESULTS No Results PROCEDURES [...]
--- OUTSIDE RECORDS SUMMARY | 2019-07-17 10:48 | XMS REPORT ---
Author Author Sujey GANDHI Organization [facility] Address [address] [place] [address] Care Team Providers Care Field Cane Scaler Name Role Phone WHIT GANDHI Unavailable PROBLEMS Type Condition ICD9-CM Code WZB25-SD Code Onset Dates Condition S tatus SNOMED Code Problem Diabetes E11.9 Active 35834255 Problem GERD (gastroesophageal reflux disease) K21.9 Active 796263624 Problem Anxiety disorder, unspecified F41.9 Active 338970768 Problem Hypertension I10 Active 5898133 3 Problem Other bipolar disorder F31.89 Active 56121946 Problem Fibromyalgia M79.7 Active 0095277 7 Problem Panic disorder with agoraphobia F40.01 Active 09372326 Problem Chronic obstructive pulmonary disease, unspecified J44.9 Active 44608548 Problem Lumbago with sciatica, left side M54.42 Active 914018345 Problem Migraine without aura and without status migrain osus, not intractable G43.009 Active 752774398 Problem Lumbago with sciatica, right side M54.41 Active 783025600 Problem Fibrocystic disease of right breast N60.11 Active 21247619 Problem Other chronic pain G89.29 Active 8 1087931 Problem Fibrocystic disease of left breast N60.12 Active 69725532 Problem Irritable bowel syndrome with constipation K58.1 Active 831184215 Problem Arthritis M19.90 Active 4977378 Problem Abnormal mammogram of right breast R92.8 Active 844865502 Problem Daytime somnolence R40.0 Active 1 65468041130 Problem Bipolar affective disorder, remission status unspecified F31.9 Active 03007711 Problem Chronic post-traumatic stress disorder (PTSD) F43. 12 Active 299277253 Problem Bipolar 1 disorder, depressed, moderate F31.32 Active 31928938 Problem Schizoaffective disorder, bipolar type F25.0 Active 74837774 Problem Irritable bowel syndrome with both constipation and diarrh ea K58.2 Active 73628593 Problem Slow transit constipation K59.01 Acti ve 37194907 Problem Essential tremor G25.0 Active 609 665538 Problem Acute non-recurrent maxillary sinusitis J01.00 Active 43788004 Problem Back pain M54.9 Active 545331659 Problem Bipolar 1 disorder, depressed, partial remission F 31.75 Active 67152815 Problem Attention deficit hyperactiv ity disorder (ADHD), predominantly inattentive type F90.0 Active 48076191 Problem Bipolar I disorder with depression F31.9 Active 18650340 Problem Panlobular emphysema J43.1 Active 1589252 Problem Akathisia G25.71 Active 258623906 Problem Mild persistent asthma without complication J45.30 Active 501765634 Problem Moderate persistent asthma without complication J4 5.40 Active 036929110 ALLERGIES No Information ENCOUNTERS Encounter Location Date Diagnosis [facility] [address] [facility] [id number] [address] [place] [phone] 29 Mar, 2018 [facility] [address] [facility] [id number] [address] [place] [phone] Mar, Irritable bowel syndrome wit h both constipation and diarrhea K58.2 [facility] [address] [facility] [id number] [address] [place] [phone] Mar, [facility] [address] [facility] [id number] [address] [place] [phone] Mar, Hypertension I10 [facility] [address] [facility] [id number] [address] [place] [phone] 14 Mar, 2018 [facility] [address] [facility] [id number] [address] [place] [phone] 12 Mar, 2018 [facility] [address] [facility] [id number] [address] [place] [phone] Mar, [facility] [address] [facility] [id number] [address] [place] [phone] Mar, Diabetes E11.9 [facility] [address] [facility] [id number] [address] [place] [phone] 06 Mar, 2018 [facility] [address] [facility] [id number] [address] [place], [place] [phone] Feb, Daytime somnolence R40.0 and Anxiety disorder, unspecified F41.9 [facility] [address] [facility] [id number] [place], [place] [phone] Feb, [facility] [address] [facility] [id number] [address] [place] [phone] Feb, [facility] [address] [facility] [id number] [place] [phone] Feb, Tremors of nervous system R2 5.1 and Acute swimmer''s ear of right side H60.331 [facility] [address] [place] [id number] [place], [place] [phone] Feb, Cerebrovascular accident (CV A) due to occlusion of right cerebellar artery I63.541 and Hypertension I10 [facility] [address] [place] [id number] [address] [place] [phone] Feb, [facility] [address] [place] [id number] [place] [phone] Feb, Cerebrovascular accident (CV A) due to occlusion of right cerebellar artery I63.[id number] [place] [id number] Feb, Hyponatremia E87.1 [facility] [address] [facility] [id number] [address] [place] [phone] Feb, [facility] [address] [place] [id number] [address] [place], [place] [phone] Feb, Daytime somnolence R40.0 [facility] [address] [facility] [id number] [address] [place] [phone] Feb, [facility] [address] [place] [id number] [address] [place] [id number] Jan, [facility] [address] [facility] [id number] [address] [place] [phone] Jan, [place] [address] [id number] [address] [place] [phone] 27 Jan, 2018 Chronic obstructive pulmonar y disease, unspecified J44.9 and Anxiety disorder, unspecified F41.9 [facility] [address] [id number] [address] [place] [phone] 27 Jan, 2018 Hypertension I10 ; Fibromyal medhat M79.7 and Lumbago with sciatica, left side M54.42 [place] [address] [id number] [address] [place] [phone] Jan, [place] [address] [id number] [address] [place] [phone] 20 Jan, 2018 Cerebrovascular accident (CV A) due to occlusion of right cerebellar artery I63.541 [place] [address] [id number] [address] [place] [phone] 19 Jan, 2018 [place] [address] [id number] [address] [place] [phone] 13 Jan, 2018 Arthritis M19.90 [place] [address] [id number] [address] [place] [phone] 07 Jan, 2018 [place] [address] [facility] [id number] [address] [place] [phone] 04 Jan, 2018 Abnormal mammogram of right breast R92.8 [place] [address] [facility] [id number] [address] [place] [phone] Dec, Daytime somnolence R40.0 and Right otitis media with effusion H65.91 [place] [address] [id number] [address] [place] [phone] Dec, [place] [address] [facility] [id number] [address] [place] [id number] Dec, Cerebrovascular accident (CV A) due to occlusion of right cerebellar artery I63.541 [place] [address] [id number] [address] [place] [phone] Dec, [facility] [address] [id number] [address] [place] [phone] Dec, [facility] [address] [id number] [address] [place] [phone] Nov, Bipolar 1 disorder, depresse d, partial remission F31.75 and Panic disorder with agoraphobia F40.01 [facility] [address] [id number] [address] [place] [phone] Nov, Panlobular emphysema J43.1 [facility] [address] [id number] [address] [place] [phone] Nov, Cerebrovascular accident (CV A) due to occlusion of right cerebellar artery I63.541 and Acute non-recurrent maxillary sinusitis J01.00 [facility] [address] [id number] [address] [place] [phone] Nov, Panlobular emphysema J43.1 [facility] [address] [id number] [address] [place] [phone] Nov, [facility] [address] [id number] [address] [place] [phone] Nov, [facility] [address] [id number] [address] [place] [phone] Nov, [facility] [address] [id number] [address] [place] [phone] Nov, [facility] [address] [id number] [address] [place] [phone] Nov, [facility] [address] [id number] [address] [place] [phone] Nov, [facility] [address] [facility] [id number] [address] [place] [phone] Nov, [facility] [address] [facility] [id number] [address] [place] [phone] Nov, Mild persistent asthma witho ut complication J45.30 and Irritable bowel syndrome with both constipation and diarrhea K58.2 [facility] [address] [id number] [address] [place] [phone] Nov, [facility] [address] [facility] [id number] [address] [place] [phone] Oct, [facility] [address] [facility] [id number] [address] [place] [id number] Oct, [facility] [address] [id number] [address] [place] [phone] Oct, Type 2 diabetes mellitus wit h diabetic neuropathy, unspecified whether tower erector helper insulin use E11.40 ; Diabetes E11.9 ; Slow transit constipation K59.01 ; Edema of both legs R60.0 and Dysfunction of right eustachian tube H69.81 [facility] [address] [facility] [id number] [address] [place] [phone] Oct, Frequent headaches R51 [facility] [address] [id number] [address] [place] [id number] Oct, [facility] [address] [facility] [id number] [address] [place] [phone] Oct, [facility] [address] [facility] [id number] [address] [place] [phone] Oct, [facility] [address] [facility] [id number] [address] [place] [phone] Oct, [facility] [address] [facility] [id number] [address] [place] [phone] Oct, [facility] [address] [facility] [id number] [address] [place] [phone] Oct, [facility] [address] [facility] [id number] [address] [place] [phone] Oct, [facility] [address] [facility] [id number] [address] [place] [phone] Oct, [facility] [address] [facility] [id number] [address] [place] [phone] September, Frequent headaches R51 [facility] [address] [facility] [id number] [address] [place] [phone] September, Bilateral otitis media with effusion H65.93 ; Dizziness R42 and Essential tremor G25.0 [facility] [address] [facility] [id number] [address] [place] [phone] September, Chronic obstructive pulmonar y disease, unspecified COPD type J44.9 [facility] [address] [facility] [id number] [address] [place] [id number] September, Chronic obstructive pulmonar y disease, unspecified COPD type J44.9 [facility] [address] [facility] [id number] [address] [place] [phone] September, Migraine without aura and wi thout status migrainosus, not intractable G43.009 [facility] [address] [place] [id number] [address] [place] [phone] September, [facility] [address] [facility] [id number] [address] [place] [phone] September, [facility] [address] [place] [id number] [address] [place] [phone] September, [facility] [address] [facility] [id number] [address] [place] [phone] September, Frequent headaches R51 [facility] [address] [facility] [id number] [address] [place] [id number] Aug, [facility] [address] [facility] [id number] [address] [place] [phone] Aug, Breast mass, right N63.10 [facility] [address] [facility] [id number] [address] [place] [phone] Aug, Breast lump N63.0 [facility] [address] [place] [id number] [place] [phone] Aug, [facility] [address] [id number] [address] [place] [phone] Aug, Bipolar affective disorder, remission status unspecified F31.9 and Diabetes E11.9 [facility] [address] [id number] [address] [place] [phone] Aug, Diabetes E11.9 ; Schizoaffec tive disorder, bipolar type F25.0 ; Pharyngitis due to other organism J02.8 ; Panlobular emphysema J43.1 and Irritable bowel syndrome with both constipation and diarrhea K58.2 [place] [address] [facility] [id number] [address] [place] [phone] Aug, Abnormal mammogram R92.8 [place] [address] [facility] [id number] [address] [place] [phone] Aug, [place] [address] [facility] [id number] [address] [place] [phone] Aug, Bipolar 1 disorder, depresse d, moderate F31.32 ; Panic disorder with agoraphobia F40.01 and Chronic post-traumatic stress disorder (PTSD) F43.12 [place] [address] [facility] [id number] [address] [place] [phone] Aug, [place] [address] [facility] [id number] [address] [place] [phone] Aug, [place] [address] [facility] [id number] [address] [place] [phone] Aug, [place] [address] [facility] [id number] [address] [place] [phone] Jul, [place] [address] [facility] [id number] [address] [place] [id number] Jul, Mild persistent asthma witho ut complication J45.30 [place] [address] [facility] [id number] [address] [place] [id number] Jul, Mild persistent asthma witho ut complication J45.30 [place] [address] [id number] [address] [place] [phone] 15 Jul, 2017 Bipolar affective disorder, remission status unspecified F31.9 ; Diabetes E11.9 and Irritable bowel syndrome with constipation K58.1 [facility] [address] [id number] [address] [place] [phone] 13 Jul, 2017 [facility] [address] [id number] [address] [place] [id number] 09 Jul, 2017 [facility] [address] [id number] [address] [place] [phone] Jul, Frequent headaches R51 [facility] [address] [facility] [id number] [address] [place] [phone] 07 Jul, 2017 [facility] [address] [facility] [id number] [address] [place] [phone] Jul, [facility] [address] [facility] [id number] [address] [place] [phone] Jul, [facility] [address] [facility] [id number] [address] [place] [id number] Jul, Frequent headaches R51 ; Fib rocystic disease of left breast N60.12 ; Fibrocystic disease of right breast N60.11 and Diabetes E11.9 [facility] [address] [facility] [id number] [address] [place] [phone] Jul, [facility] [address] [facility] [id number] [address] [place] [phone] Jul, [facility] [address] [facility] [id number] [address] [place] [phone] Jun, Exudative tonsillitis J03.90 [facility] [address] [facility] [id number] [address] [place] [phone] Jun, [facility] [address] [facility] [id number] [address] [place] [phone] Jun, [facility] [address] [place] [id number] [place] [id number] 15 Jun, 2017 Mild persistent asthma witho ut complication J45.30 ; Chronic obstructive pulmonary disease, unspecified COPD type J44.9 and Exudative tonsillitis J03.90 [facility] [address] [facility] [id number] [address] [place] [phone] 13 Jun, 2017 Encounter for immunization Z 23 [facility] [address] [id number] 12 Jun, 2017 [facility] [address] [id number] 12 Jun, 2017 [place] [address] [phone] 09 Jun, 2017 [facility] [address] [place] [id number] [place] [phone] 06 Jun, 2017 Tonsillitis J03.90 [place] [address] [place] [id number] [address] [place] [id number] 05 Jun, 2017 [place] [address] [id number] 03 Jun, 2017 Acute non-recurrent maxillar y sinusitis J01.00 [place] [address] [place] [id number] [place] [phone] 02 Jun, 2017 [facility] [address] [place] [id number] [address] [place] [phone] May, [place] [address] [place] [id number] [address] [place] [phone] May, [place] [address] [id number] May, GERD (gastroesophageal reflu x disease) K21.9 [place] [address] [place] [id number] [place] [phone] May, Migraine without aura and wi thout status migrainosus, not intractable G43.009 [facility] [address] [id number] [address] [place] [phone] May, [facility] [address] [id number] [address] [place] [phone] May, [facility] [address] [facility] [id number] [address] [place] [phone] May, Panlobular emphysema J43.1 a nd Acute non-recurrent maxillary sinusitis J01.00 [facility] [address] [id number] [address] [place] [phone] May, Bipolar 1 disorder, depresse d, moderate F31.32 ; Panic disorder with agoraphobia F40.01 and Akathisia G25.71 [facility] [address] [facility] [id number] [address] [place] [phone] Apr, [facility] [address] [facility] [id number] [address] [place] [phone] Apr, [facility] [address] [facility] [id number] [address] [place] [phone] Apr, Acute non-recurrent maxillar y sinusitis J01.00 [facility] [address] [facility] [id number] [address] [place] [phone] Apr, Panlobular emphysema J43.1 [facility] [address] [facility] [id number] [address] [place] [phone] Apr, [facility] [address] [id number] [address] [place] [phone] 04 Apr, 2017 Exudative tonsillitis J03.90 and Sore throat J02.9 [facility] [address] [facility] [id number] [address] [place] [id number] Mar, [facility] [address] [facility] [id number] [address] [place] [phone] Mar, Acute non-recurrent maxillar y sinusitis J01.00 [facility] [address] [facility] [id number] [address] [place] [phone] 13 Mar, 2017 [facility] [address] [facility] [id number] [address] [place] [phone] 09 Mar, 2017 Panlobular emphysema J43.1 a nd Diabetes E11.9 [facility] [address] [facility] [id number] [address] [place] [id number] Mar, [facility] [address] [facility] [id number] [address] [place] [id number] Feb, Wheezing R06.2 and Acute rec urrent pansinusitis J01.41 [facility] [address] [facility] [id number] [address] [place] [phone] Feb, [facility] [address] [place] [id number] [address] [place] [id number] Feb, Acute non-recurrent maxillar y sinusitis J01.00 [facility] [address] [facility] [id number] [address] [place] [phone] Feb, Chronic obstructive pulmonar y disease, unspecified J44.9 [facility] [address] [place] [id number] [address] [place] [phone] Feb, Hypoxemia R09.02 and Chronic obstructive pulmonary disease, unspecified J44.9 [facility] [address] [place] [id number] [place] [id number] Jan, Bipolar 1 disorder, depresse d, moderate F31.32 ; Panic disorder with agoraphobia F40.01 ; Chronic post-traumatic stress disorder (PTSD) F43.12 ; Diabetes E11.9 and Moderate persistent asthma without complication J45.40 [facility] [address] [facility] [id number] [address] [place] [phone] Jan, [facility] [address] [place] [id number] [place] [phone] Jan, Acute non-recurrent maxillar y sinusitis J01.00 [facility] [address] [id number] [address] [place] [id number] 18 Jan, 2017 [facility] [address] [id number] [address] [place] [id number] 18 Jan, 2017 [facility] [address] [id number] [address] [place] [id number] 12 Jan, 2017 Moderate persistent asthma w ithout complication J45.40 and Hypoxemia R09.02 [facility] [address] [id number] [address] [place] [id number] 11 Jan, 2017 Moderate persistent asthma w ithout complication J45.40 and Hypoxemia R09.02 [facility] [address] [id number] [address] [place] [phone] Jan, [facility] [address] [id number] [address] [place] [phone] Dec, Acute non-recurrent maxillar y sinusitis J01.00 [facility] [address] [id number] [address] [place] [phone] Dec, Chronic obstructive pulmonar y disease, unspecified J44.9 [facility] [address] [id number] [address] [place] [phone] Dec, [facility] [address] [id number] [address] [place] [phone] Dec, Mild persistent asthma witho ut complication J45.30 and Other chronic pain G89.29 [facility] [address] [id number] [address] [place] [phone] Nov, [facility] [address] [id number] [address] [place] [phone] Nov, Acute non-recurrent maxillar y sinusitis J01.00 [facility] [address] [id number] [address] [place] [id number] Nov, [facility] [address] [id number] [address] [place] [phone] Nov, [facility] [address] [facility] [id number] [address] [place] [phone] Oct, [facility] [address] [facility] [id number] [address] [place] [phone] Oct, Bipolar 1 disorder, depresse d, partial remission F31.75 ; Panic disorder with agoraphobia F40.01 and Chronic post-traumatic stress disorder (PTSD) F43.12 [facility] [address] [facility] [id number] [address] [place] [phone] Oct, Acute non-recurrent maxillar y sinusitis J01.00 [facility] [address] [place] [id number] [address] [place] [phone] Oct, [facility] [address] [place] [id number] [address] [place] [phone] Oct, Diabetes E11.9 [facility] [address] [facility] [id number] [address] [place] [phone] September, Diabetes E11.9 [facility] [address] [facility] [id number] [address] [place] [phone] September, Diabetes E11.9 and Sinus tac hycardia R00.0 [facility] [address] [facility] [id number] [address] [place] [phone] September, [facility] [address] [place] [id number] [address] [place] [phone] September, [facility] [address] [facility] [id number] [address] [place] [phone] Aug, Diabetes E11.9 and Lumbago w ith sciatica, right side M54.41 [facility] [address] [facility] [id number] [address] [place] [phone] Aug, [facility] [address] [place] [id number] [address] [place] [phone] Jul, Bipolar 1 disorder, depresse d, moderate F31.32 ; Panic disorder with agoraphobia F40.01 and Chronic post-traumatic stress disorder (PTSD) F43.12 [facility] [address] [facility] [id number] [address] [place] [phone] Jul, Sore throat J02.9 [facility] [address] [facility] [id number] [address] [place] [phone] Jul, [facility] [address] [facility] [id number] [address] [place] [phone] Jul, [facility] [address] [facility] [id number] [address] [place] [phone] Jul, [facility] [address] [facility] [id number] [address] [place] [phone] Jul, [facility] [address] [facility] [id number] [address] [place] [phone] Jul, Sore throat J02.9 and Pharyn gitis, unspecified etiology J02.9 [facility] [address] [id number] [address] [place] [phone] Jun, [facility] [address] [facility] [id number] [address] [place] [phone] Jun, Diabetes E11.9 [facility] [address] [facility] [id number] [address] [place] [phone] Jun, [facility] [address] [facility] [id number] [address] [place] [phone] Jun, [facility] [address] [facility] [id number] [address] [place] [phone] Jun, [facility] [address] [facility] [id number] [address] [place] [phone] Jun, [facility] [address] [facility] [id number] [address] [place] [phone] Jun, [facility] [address] [facility] [id number] [address] [place] [phone] 15 Jun, 2016 [facility] [address] [id number] [address] [place] [phone] Jun, [facility] [address] [id number] [address] [place] [phone] Jun, [facility] [address] [id number] [address] [place] [phone] May, Diabetes E11.9 ; Other chron ic pain G89.29 ; Acute recurrent maxillary sinusitis J01.01 ; Bipolar I disorder with depression F31.9 and Anxiety disorder, unspecified F41.9 [facility] [address] [id number] [address] [place] [phone] May, [facility] [address] [id number] [address] [place] [phone] May, Diabetes E11.9 ; Bipolar I d isorder with depression F31.9 ; Anxiety disorder, unspecified F41.9 ; Other chronic pain G89.29 and Acute recurrent maxillary sinusitis J01.01 [facility] [address] [id number] [address] [place] [phone] May, [facility] [address] [id number] [address] [place] [phone] May, Attention deficit hyperactiv ity disorder (ADHD), predominantly inattentive type F90.0 [facility] [address] [id number] [address] [place] [phone] May, [facility] [address] [id number] [address] [place] [phone] Apr, Attention deficit hyperactiv ity disorder (ADHD), predominantly inattentive type F90.0 and Non-seasonal allergic rhinitis due to other allergic trigger J30.89 [facility] [address] [id number] [address] [place] [phone] Apr, Bipolar 1 disorder, depresse d, moderate F31.32 ; Panic disorder with agoraphobia F40.01 and Chronic post-traumatic stress disorder (PTSD) F43.12 [facility] [address] [id number] [address] [place] [phone] Apr, Dental examination Z01.20 [facility] [address] [id number] [address] [place] [phone] Mar, [facility] [address] [id number] [address] [place] [phone] Mar, [facility] [address] [id number] [address] [place] [phone] Mar, Bipolar I disorder with depr ession F31.9 and Anxiety disorder, unspecified F41.9 [facility] [address] [id number] [address] [place] [phone] 08 Mar, 2016 Panic disorder with agorapho syd F40.01 ; Bipolar 1 disorder, depressed, moderate F31.32 and Chronic post-traumatic stress disorder (PTSD) F43.12 [facility] [address] [id number] [address] [place] [phone] 04 Mar, 2016 [facility] [address] [id number] [address] [place] [phone] 02 Mar, 2016 Dental caries K02.9 [facility] [address] [id number] [address] [place] [id number] 24 Feb, 2016 Lumbago with sciatica, left side M54.42 ; Lumbago with sciatica, right side M54.41 and Other chronic pain G89.29 [facility] [address] [id number] [address] [place] [id number] 17 Feb, 2016 [facility] [address] [id number] [address] [place] [phone] 14 Feb, 2016 [facility] [address] [id number] [address] [place] [phone] 13 Feb, 2016 Bipolar I disorder with depr ession F31.9 ; PTSD (post-traumatic stress disorder) F43.10 and Mood disorder F39 [facility] [address] [facility] [id number] [address] [place] [phone] Feb, [facility] [address] [facility] [id number] [address] [place] [phone] Feb, Dental examination Z01.20 [facility] [address] [place] [id number] [address] [place] [phone] Feb, [facility] [address] [facility] [id number] [address] [place] [phone] Feb, Acute bronchitis, unspecifie d organism J20.9 [facility] [address] [place] [id number] [place] [id number] Jan, Mood disorder F39 ; Migraine without aura and without status migrainosus, not intractable G43.009 ; Irritable bowel syndrome, unspecified type K58.9 ; Diabetes E11.9 and Encounter for immunization Z23 [facility] [address] [place] [id number] [address] [place] [id number] 15 Jan, 2016 [facility] [address] [place] [id number] [address] [place] [phone] Jan, [facility] [address] [place] [id number] [address] [place] [phone] Jan, [facility] [address] [place] [id number] [address] [place] [phone] Jan, [place] [address] [place] [id number] [address] [place] [phone] Jan, [facility] [address] [place] [id number] [address] [place] [phone] Dec, Bipolar I disorder with depr ession F31.9 ; PTSD (post-traumatic stress disorder) F43.10 and Panic disorder with agoraphobia F40.01 [facility] [address] [place] [id number] [address] [place] [phone] Dec, Chronic obstructive pulmonar y disease, unspecified COPD type J44.9 ; Tremor R25.1 and Anxiety F41.9 [facility] [address] [id number] [address] [place] [phone] Dec, [facility] [address] [facility] [id number] [address] [place] [phone] Nov, Tremors of nervous system R2 5.1 and Cramping of feet R25.2 [facility] [address] [id number] [address] [place] [phone] Nov, [facility] [address] [facility] [id number] [address] [place] [phone] Nov, [facility] [address] [facility] [id number] [address] [place] [phone] Oct, Chronic obstructive pulmonar y disease, unspecified J44.9 [facility] [address] [facility] [id number] [address] [place] [phone] Oct, [facility] [address] [facility] [id number] [address] [place] [phone] Oct, Tremor R25.1 [facility] [address] [facility] [id number] [address] [place] [phone] Oct, Bipolar I disorder with depr ession F31.9 ; Diabetes E11.9 ; PTSD (post-traumatic stress disorder) F43.10 and Panic disorder with agoraphobia F40.01 [facility] [address] [facility] [id number] [address] [place] [phone] Oct, Mood disorder F39 [facility] [address] [facility] [id number] [address] [place] [id number] September, [facility] [address] [facility] [id number] [address] [place] [phone] September, Diabetes E11.9 ; Bipolar I d isorder with depression F31.9 ; PTSD (post-traumatic stress disorder) F43.10 and Panic disorder with agoraphobia F40.01 [facility] [address] [id number] [address] [place] [phone] September, Mood disorder F39 ; Schizoaf fective disorder, unspecified type F25.9 ; Arthritis M19.90 ; Tremor R25.1 ; Acute non-recurrent frontal sinusitis J01.10 and Blood in stool K92.1 [facility] [address] [id number] [address] [place] [phone] September, [facility] [address] [id number] [address] [place] [phone] September, Chronic obstructive pulmonar y disease, unspecified J44.9 [facility] [address] [id number] [address] [place] [phone] September, Diabetes E11.9 [facility] [address] [id number] [address] [place] [phone] Aug, Other bipolar disorder F31.8 9 and Anxiety disorder, unspecified F41.9 [facility] [address] [id number] [address] [place] [phone] Aug, [facility] [address] [id number] [address] [place] [phone] Aug, Diabetes E11.9 [facility] [address] [id number] [address] [place] [phone] 18 Aug, 2015 [facility] [address] [id number] [address] [place] [id number] 14 Aug, 2015 Diabetes E11.9 ; Fatigue R53 .83 and Dizziness R42 [facility] [address] [id number] [address] [place] [phone] 13 Aug, 2015 Other bipolar disorder F31.8 9 [facility] [address] [id number] [address] [place] [phone] 07 Aug, 2015 Generalized anxiety disorder F41.1 [facility] [address] [facility] [id number] [address] [place] [phone] 07 Aug, 2015 Other bipolar disorder F31.8 9 and Anxiety disorder, unspecified F41.9 [facility] [address] [id number] [address] [place] [phone] Aug, [facility] [address] [facility] [id number] [address] [place] [phone] 29 Jul, 2015 [facility] [address] [id number] [address] [place] [phone] Jul, [facility] [address] [id number] [address] [place] [phone] Jul, Bronchitis J40 [facility] [address] [facility] [id number] [address] [place] [phone] Jul, Anxiety disorder F41.9 [facility] [address] [facility] [id number] [address] [place] [phone] Jul, Other bipolar disorder F31.8 9 and Anxiety disorder, unspecified F41.9 [facility] [address] [facility] [id number] [address] [place] [phone] 18 Jul, 2015 Other bipolar disorder F31.8 9 and Fibromyalgia M79.7 [facility] [address] [facility] [id number] [address] [place] [phone] Jul, [facility] [address] [facility] [id number] [address] [place] [phone] Jul, [facility] [address] [facility] [id number] [address] [place] [phone] Jul, [facility] [address] [facility] [id number] [address] [place] [phone] Jul, Other bipolar disorder F31.8 9 and Anxiety disorder, unspecified F41.9 [facility] [address] [facility] [id number] [address] [place] [id number] 25 Jun, 2015 GERD (gastroesophageal reflu x disease) K21.9 [facility] [address] [facility] [id number] [address] [place] [phone] Jun, [facility] [address] [place] [id number] [address] [place] [phone] May, [facility] [address] [id number] May, Diabetes E11.9 ; Back pain M 54.9 ; GERD (gastroesophageal reflux disease) K21.9 ; Hypertension I10 and Peripheral neuropathy G62.9 [facility] [address] [id number] Mar, [facility] [address] [phone] Mar, [facility] [address] [id number] Mar, Acute sinusitis J01.90 and O titis media, left H66.92 [facility] [address] [id number] Feb, [facility] [address] [id number] Feb, [facility] [address] [id number] Feb, [facility] [address] [id number] Feb, [facility] [address] [id number] Jan, [facility] [address] [id number] Jan, Diabetes 250.00 and Back higinio n 724.5 [facility] [address] [place] [id number] [address] [place] [phone] Jan, [facility] [address] [place] [id number] [address] [place] [id number] Dec, Diabetes 250.00 ; Benign ess ential hypertension 401.1 and Allergic rhinitis 477.9 [facility] [address] [facility] [id number] [address] [place] [phone] Dec, [facility] [address] [facility] [id number] [address] [place] [phone] Dec, [facility] [address] [facility] [id number] [address] [place] [id number] Dec, Psychosis 298.9 [facility] [address] [facility] [id number] [address] [place] [id number] Dec, Medication side effect 995.2 0 and Generalized anxiety disorder 300.02 [facility] [address] [facility] [id number] [address] [place] [phone] Dec, Acquired cognitive dysfuncti on 294.9 [facility] [address] [place] [id number] [address] [place] [phone] Dec, [facility] [address] [place] [id number] [address] [place] [id number] Dec, Unspecified myalgia and myos itis 729.1 and Generalized anxiety disorder 300.02 [facility] [address] [place] [id number] [address] [place] [id number] Nov, [facility] [address] [place] [id number] [address] [place] [phone] Nov, [facility] [address] [place] [id number] [address] [place] [phone] Nov, [facility] [address] [facility] [id number] [address] [place] [phone] Nov, Upper respiratory infection 465.9 and Chronic airway obstruction, not elsewhere classified 496 [facility] [address] [facility] [id number] [address] [place] [phone] Nov, Hyponatremia 276.1 [facility] [address] [place] [id number] [address] [place] [phone] Oct, [facility] [address] [place] [id number] [address] [place] [phone] 12 Oct, 2014 [facility] [address] [id number] [address] [place] [phone] Oct, [facility] [address] [id number] [address] [place] [phone] 10 Oct, 2014 [facility] [address] [facility] [id number] [address] [place] [phone] 04 Oct, 2014 Hyponatremia 276.1 [facility] [address] [id number] [address] [place] [phone] Oct, [facility] [address] [facility] [id number] [address] [place] [phone] Oct, [facility] [address] [facility] [id number] [address] [place] [phone] Oct, Generalized anxiety disorder 300.02 [facility] [address] [facility] [id number] [address] [place] [id number] Oct, Generalized anxiety disorder 300.02 and Diabetes 250.00 [facility] [address] [id number] [address] [place] [phone] Aug, [facility] [address] [facility] [id number] [address] [place] [phone] Aug, [facility] [address] [facility] [id number] [address] [place] [phone] Jul, [facility] [address] [id number] [address] [place] [phone] Jul, [facility] [address] [id number] [address] [place] [phone] Jun, [facility] [address] [facility] [id number] [address] [place] [phone] Jun, [facility] [address] [facility] [id number] [address] [place] [phone] Jun, [facility] [address] [id number] [address] [place] [address], [place] [address] Jun, [facility] [address] [id number] [address] [place] [address], [place] [address] Jun, [facility] [address] [id number] [address] [place] [address], [place] [address] May, [facility] [address] [id number] [address] [place] [address], [place] [address] May, [facility] [address] [id number] [address] [place] [address], [place] [address] Apr, [facility] [address] [id number] [address] [place] [address], [place] [address] Apr, [facility] [address] [id number] [address] [place] [address], [place] [address] Apr, [facility] [address] [id number] [address] [place] [address], [place] [address] Apr, [facility] [address] [id number] [address] [place] [address], [place] [address] Apr, [facility] [address] [id number] [address] [place] [address], [place] [address] Apr, [facility] [address] [id number] [address] [place] [address], [place] [address] Apr, [facility] [address] [id number] [address] [place] [address], [place] [address] Apr, [facility] [address] [id number] [address] [place] [address], [place] [address] Feb, [facility] [address] [id number] [address] [place] [address], [place] [address] Feb, [facility] [address] [id number] [address] [place] [address], [place] [address] Jan, [facility] [address] [id number] [address] [place] [address], [place] [address] Jan, [facility] [address] [id number] [address] [place] [address], [place] [address] Dec, [facility] [address] [id number] [address] [place] [address], [place] [address] Dec, [facility] [address] [id number] [address] [place] [address], [place] [address] Dec, [facility] [address] [id number] [address] [place] [address], [place] [address] Nov, [facility] [address] [id number] [address] [place] [address], [place] [address] Nov, [facility] [address] [id number] [address] [place] [address], [place] [address] Nov, [facility] [address] [id number] [address] [place] [address], [place] [address] Oct, [facility] [address] [id number] [address] [place] [address], [place] [address] Oct, [facility] [address] [id number] [address] [place] [address], [place] [address] Oct, [facility] [address] [id number] [address] [place] [address], [place] [address] September, [facility] [address] [id number] [address] [place] [address], [place] [address] September, [facility] [address] [id number] [address] [place] [address], [place] [address] September, [facility] [address] [id number] [address] [place] [address], [place] [address] Aug, [facility] [address] [id number] [address] [place] [address], [place] [address] Aug, [facility] [address] [id number] [address] [place] [address], [place] [address] Aug, [facility] [address] [id number] [address] [place] [address], [place] [address] 16 Aug, 2011 [facility] [address] [id number] [address] [place] [address], [place] [address] Jul, [facility] [address] [id number] [address] [place] [address], [place] [address] 21 Jun, 2011 [facility] [address] [id number] [address] [place] [address], [place] [address] 14 Jun, 2011 [facility] [address] [id number] [address] [place] [address], [place] [address] 13 Jun, 2011 [facility] [address] [id number] [address] [place] [address], [place] [address] 07 Jun, 2011 [facility] [address] [id number] [address] [place] [address], [place] [address] 03 Jun, 2011 [facility] [address] [id number] [address] [place] [address], [place] [address] 13 May, 2011 [facility] [address] [id number] [address] [place] [address], [place] [address] 10 May, 2011 [facility] [address] [id number] [address] [place] [address], [place] [address] 09 May, 2011 [facility] [address] [id number] [address] [place] [address], [place] [address] 04 May, 2011 [facility] [address] [id number] [address] [place] [address], [place] [address] Apr, [facility] [address] [id number] [address] [place] [address], [place] [address] 13 Apr, 2011 [facility] [address] [id number] [address] [place] [address], [place] [address] 05 Apr, 2011 [facility] [address] [id number] [address] [place] [address], [place] [address] 22 Mar, 2011 [facility] [address] [id number] [address] [place], [place] [address] [address] Mar, [facility] [address] [id number] [address] [place] [phone] Mar, [facility] [address] [id number] [address] [place] [phone] Feb, [facility] [address] [id number] [address] [place] [id number] 13 Feb, 2011 [facility] [address] [id number] [address] [place] [phone] Feb, [facility] [address] [id number] [address] [place] [id number] Nov, [facility] [address] [id number] [address] [place] [phone] September, [facility] [address] [id number] [address] [place] [phone] Aug, [facility] [address] [id number] [address] [place] [phone] Jul, [facility] [address] [id number] [address] [place] [phone] May, [facility] [address] [id number] [address] [place] [id number] Apr, [facility] [address] [id number] [address] [place] [id number] Apr, [facility] [address] [id number] [address] [place] [id number] Apr, [facility] [address] [id number] [place] [id number] Apr, [facility] [address] [id number] [address] [place] [id number] Apr, IMMUNIZATIONS No Known Immunizations SOCIAL HISTORY Never Assessed REASON FOR VISIT Call from spouse PLAN OF CARE VITAL SIGNS MEDICATIONS Unknown [...]
--- OUTSIDE RECORDS SUMMARY | 2019-07-17 10:48 | XMS REPORT ---
Author Author Sujey GANDHI Organization [facility] [place] Address [address] [place] [address] Care Team Providers Care Face Burler Name Role Phone WHIT GANDHI Unavailable PROBLEMS Type Condition ICD9-CM Code PPM88-AD Code Onset Dates Condition S tatus SNOMED Code Problem Diabetes E11.9 Active 06631185 Problem GERD (gastroesophageal reflux disease) K21.9 Active 902771017 Problem Anxiety disorder, unspecified F41.9 Active 683532045 Problem Hypertension I10 Active 9381574 3 Problem Other bipolar disorder F31.89 Active 01826510 Problem Fibromyalgia M79.7 Active 9519039 7 Problem Panic disorder with agoraphobia F40.01 Active 78225050 Problem Chronic obstructive pulmonary disease, unspecified J44.9 Active 14116354 Problem Lumbago with sciatica, left side M54.42 Active 663798120 Problem Migraine without aura and without status migrain osus, not intractable G43.009 Active 439847621 Problem Lumbago with sciatica, right side M54.41 Active 635341219 Problem Fibrocystic disease of right breast N60.11 Active 53965615 Problem Other chronic pain G89.29 Active 8 1798942 Problem Fibrocystic disease of left breast N60.12 Active 46453750 Problem Irritable bowel syndrome with constipation K58.1 Active 273646736 Problem Arthritis M19.90 Active 1405808 Problem Abnormal mammogram of right breast R92.8 Active 100526229 Problem Daytime somnolence R40.0 Active 1 82620753551 Problem Bipolar affective disorder, remission status unspecified F31.9 Active 10165793 Problem Chronic post-traumatic stress disorder (PTSD) F43. 12 Active 982090780 Problem Bipolar 1 disorder, depressed, moderate F31.32 Active 16387681 Problem Schizoaffective disorder, bipolar type F25.0 Active 88313274 Problem Irritable bowel syndrome with both constipation and diarrh ea K58.2 Active 06755200 Problem Slow transit constipation K59.01 Acti ve 98300996 Problem Essential tremor G25.0 Active 609 852465 Problem Acute non-recurrent maxillary sinusitis J01.00 Active 53344115 Problem Back pain M54.9 Active 708398771 Problem Bipolar 1 disorder, depressed, partial remission F 31.75 Active 16514364 Problem Attention deficit hyperactiv ity disorder (ADHD), predominantly inattentive type F90.0 Active 52201174 Problem Bipolar I disorder with depression F31.9 Active 97051474 Problem Panlobular emphysema J43.1 Active 8834126 Problem Akathisia G25.71 Active 803806112 Problem Mild persistent asthma without complication J45.30 Active 284608664 Problem Moderate persistent asthma without complication J4 5.40 Active [id number] ALLERGIES No Information ENCOUNTERS Encounter Location Date Diagnosis [facility] [place] [address] [facility] [id number] [address] [place] [id number] 29 Mar, 2018 [facility] [place] [address] [facility] [id number] [address] [place] [id number] Mar, Irritable bowel syndrome wit h both constipation and diarrhea K58.2 [facility] [place] [address] [facility] [id number] [address] [place] [id number] Mar, [facility] [place] [address] [facility] [id number] [address] [place] [id number] Mar, Hypertension I10 [facility] [place] [address] [facility] [id number] [address] [place] [id number] 14 Mar, 2018 [facility] [place] [address] [facility] [id number] [address] [place] [id number] 12 Mar, 2018 [facility] [place] [address] [facility] [id number] [address] [place] [id number] Mar, [facility] [place] [address] [facility] [id number] [address] [place] [id number] Mar, Diabetes E11.9 [facility] [place] [address] [facility] [id number] [address] [place] [id number] 06 Mar, 2018 [facility] [place] [address] [facility] [id number] [address] [place], [place] [id number] Feb, Daytime somnolence R40.0 and Anxiety disorder, unspecified F41.9 [facility] [place] [address] [facility] [id number] [place], [place] [id number] Feb, [facility] [place] [address] [facility] [id number] [address] [place] [id number] Feb, [facility] [place] [address] [facility] [id number] [place] [phone] Feb, Tremors of nervous system R2 5.1 and Acute swimmer''s ear of right side H60.331 [facility] [place] [address] [place] [id number] [place], [place] [address] Feb, Cerebrovascular accident (CV A) due to occlusion of right cerebellar artery I63.541 and Hypertension I10 [facility] [place] [address] [place] [id number] [address] [place] [id number] Feb, [facility] [place] [address] [place] [id number] [place] [phone] Feb, Cerebrovascular accident (CV A) due to occlusion of right cerebellar artery I63.[address] [id number] [place] [id number] Feb, Hyponatremia E87.1 [facility] [place] [address] [facility] [id number] [address] [place] [id number] Feb, [facility] [place] [address] [place] [id number] [address] [place] [id number] Feb, Daytime somnolence R40.0 [facility] [place] [address] [facility] [id number] [address] [place] [id number] Feb, [facility] [place] [address] [place] [id number] [address] [place] [id number] Jan, [facility] [place] [address] [facility] [id number] [address] [place] [id number] Jan, [place] [address] [id number] [address] [place] [id number] 27 Jan, 2018 Chronic obstructive pulmonar y disease, unspecified J44.9 and Anxiety disorder, unspecified F41.9 [facility] [place] [address] [id number] [address] [place] [id number] 27 Jan, 2018 Hypertension I10 ; Fibromyal medhat M79.7 and Lumbago with sciatica, left side M54.42 [place] [address] [id number] [address] [place] [address] Jan, [place] [address] [id number] [address] [place] [id number] 20 Jan, 2018 Cerebrovascular accident (CV A) due to occlusion of right cerebellar artery I63.541 [place] [address] [id number] [address] [place] [id number] 19 Jan, 2018 [place] [address] [id number] [address] [place] [id number] 13 Jan, 2018 Arthritis M19.90 [place] [address] [id number] [address] [place] [id number] 07 Jan, 2018 [place] [address] [facility] [id number] [address] [place] [id number] 04 Jan, 2018 Abnormal mammogram of right breast R92.8 [place] [address] [facility] [id number] [address] [place] [address] Dec, Daytime somnolence R40.0 and Right otitis media with effusion H65.91 [place] [address] [id number] [address] [place] [id number] Dec, [place] [address] [facility] [id number] [address] [place] [id number] Dec, Cerebrovascular accident (CV A) due to occlusion of right cerebellar artery I63.541 [place] [address] [id number] [address] [place] [id number] Dec, [facility] [place] [address] [id number] [address] [place] [id number] Dec, [facility] [place] [address] [id number] [address] [place] [id number] Nov, Bipolar 1 disorder, depresse d, partial remission F31.75 and Panic disorder with agoraphobia F40.01 [facility] [place] [address] [id number] [address] [place] [address] Nov, Panlobular emphysema J43.1 [facility] [place] [address] [id number] [address] [place] [id number] Nov, Cerebrovascular accident (CV A) due to occlusion of right cerebellar artery I63.541 and Acute non-recurrent maxillary sinusitis J01.00 [facility] [place] [address] [id number] [address] [place] [address] Nov, Panlobular emphysema J43.1 [facility] [place] [address] [id number] [address] [place] [phone] Nov, [facility] [place] [address] [id number] [address] [place] [id number] Nov, [facility] [place] [address] [id number] [address] [place] [id number] Nov, [facility] [place] [address] [id number] [address] [place] [id number] Nov, [facility] [place] [address] [id number] [address] [place] [id number] Nov, [facility] [place] [address] [id number] [address] [place] [id number] Nov, [facility] [place] [address] [facility] [id number] [address] [place] [id number] Nov, [facility] [place] [address] [facility] [id number] [address] [place] [id number] Nov, Mild persistent asthma witho ut complication J45.30 and Irritable bowel syndrome with both constipation and diarrhea K58.2 [facility] [place] [address] [id number] [address] [place] [id number] Nov, [facility] [place] [address] [facility] [id number] [address] [place] [phone] Oct, [facility] [place] [address] [facility] [id number] [address] [place] [id number] Oct, [facility] [place] [address] [id number] [address] [place] [id number] Oct, Type 2 diabetes mellitus wit h diabetic neuropathy, 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 ; Diabetes E11.9 ; Slow transit constipation K59.01 ; Edema of both legs R60.0 and Dysfunction of right eustachian tube H69.81 [facility] [place] [address] [facility] [id number] [address] [place] [id number] Oct, Frequent headaches R51 [facility] [place] [address] [id number] [address] [place] [phone] Oct, [facility] [place] [address] [facility] [id number] [address] [place] [id number] Oct, [facility] [place] [address] [facility] [id number] [address] [place] [id number] Oct, [facility] [place] [address] [facility] [id number] [address] [place] [id number] Oct, [facility] [place] [address] [facility] [id number] [address] [place] [id number] Oct, [facility] [place] [address] [facility] [id number] [address] [place] [id number] Oct, [facility] [place] [address] [facility] [id number] [address] [place] [id number] Oct, [facility] [place] [address] [facility] [id number] [address] [place] [id number] Oct, [facility] [place] [address] [facility] [id number] [address] [place] [id number] September, Frequent headaches R51 [facility] [place] [address] [facility] [id number] [address] [place] [id number] September, Bilateral otitis media with effusion H65.93 ; Dizziness R42 and Essential tremor G25.0 [facility] [place] [address] [facility] [id number] [address] [place] [id number] September, Chronic obstructive pulmonar y disease, unspecified COPD type J44.9 [facility] [place] [address] [facility] [id number] [address] [place] [id number] September, Chronic obstructive pulmonar y disease, unspecified COPD type J44.9 [facility] [place] [address] [facility] [id number] [address] [place] [id number] September, Migraine without aura and wi thout status migrainosus, not intractable G43.009 [facility] [place] [address] [place] [id number] [address] [place] [id number] September, [facility] [place] [address] [facility] [id number] [address] [place] [id number] September, [facility] [place] [address] [place] [id number] [address] [place] [id number] September, [facility] [place] [address] [facility] [id number] [address] [place] [id number] September, Frequent headaches R51 [facility] [place] [address] [facility] [id number] [address] [place] [id number] Aug, [facility] [place] [address] [facility] [id number] [address] [place] [id number] Aug, Breast mass, right N63.10 [facility] [place] [address] [facility] [id number] [address] [place] [id number] Aug, Breast lump N63.0 [facility] [place] [address] [place] [id number] [address] [place] [id number] Aug, [facility] [place] [address] [id number] [address] [place] [id number] Aug, Bipolar affective disorder, remission status unspecified F31.9 and Diabetes E11.9 [facility] [place] [address] [id number] [address] [place] [id number] Aug, Diabetes E11.9 ; Schizoaffec tive disorder, bipolar type F25.0 ; Pharyngitis due to other organism J02.8 ; Panlobular emphysema J43.1 and Irritable bowel syndrome with both constipation and diarrhea K58.2 [place] [address] [facility] [id number] [address] [place] [id number] Aug, Abnormal mammogram R92.8 [place] [address] [facility] [id number] [address] [place] [id number] Aug, [place] [address] [facility] [id number] [address] [place] [id number] Aug, Bipolar 1 disorder, depresse d, moderate F31.32 ; Panic disorder with agoraphobia F40.01 and Chronic post-traumatic stress disorder (PTSD) F43.12 [place] [address] [facility] [id number] [address] [place] [id number] Aug, [place] [address] [facility] [id number] [address] [place] [id number] Aug, [place] [address] [facility] [id number] [address] [place] [phone] Aug, [place] [address] [facility] [id number] [address] [place] [address] Jul, [place] [address] [facility] [id number] [address] [place] [address] Jul, Mild persistent asthma witho ut complication J45.30 [place] [address] [facility] [id number] [address] [place] [id number] Jul, Mild persistent asthma witho ut complication J45.30 [place] [address] [id number] [address] [place] [id number] 15 Jul, 2017 Bipolar affective disorder, remission status unspecified F31.9 ; Diabetes E11.9 and Irritable bowel syndrome with constipation K58.1 [facility] [place] [address] [id number] [address] [place] [id number] 13 Jul, 2017 [facility] [place] [address] [id number] [address] [place] [id number] 09 Jul, 2017 [facility] [place] [address] [id number] [address] [place] [id number] Jul, Frequent headaches R51 [facility] [place] [address] [facility] [id number] [address] [place] [id number] 07 Jul, 2017 [facility] [place] [address] [facility] [id number] [address] [place] [id number] Jul, [facility] [place] [address] [facility] [id number] [address] [place] [id number] Jul, [facility] [place] [address] [facility] [id number] [address] [place] [id number] Jul, Frequent headaches R51 ; Fib rocystic disease of left breast N60.12 ; Fibrocystic disease of right breast N60.11 and Diabetes E11.9 [facility] [place] [address] [facility] [id number] [address] [place] [id number] Jul, [facility] [place] [address] [facility] [id number] [address] [place] [id number] Jul, [facility] [place] [address] [facility] [id number] [address] [place] [address] Jun, Exudative tonsillitis J03.90 [facility] [place] [address] [facility] [id number] [address] [place] [id number] Jun, [facility] [place] [address] [facility] [id number] [address] [place] [id number] Jun, [facility] [place] [address] [place] [id number] [address] [place] [id number] 15 Jun, 2017 Mild persistent asthma witho ut complication J45.30 ; Chronic obstructive pulmonary disease, unspecified COPD type J44.9 and Exudative tonsillitis J03.90 [facility] [place] [address] [facility] [id number] [address] [place] [id number] 13 Jun, 2017 Encounter for immunization Z 23 [facility] [place] [address] [id number] 12 Jun, 2017 [facility] [place] [address] [address] 12 Jun, 2017 [place] [address] [address] 09 Jun, 2017 [facility] [address] [place] [id number] [place] [address] 06 Jun, 2017 Tonsillitis J03.90 [place] [address] [place] [id number] [address] [place] [id number] 05 Jun, 2017 [place] [address] [address] 03 Jun, 2017 Acute non-recurrent maxillar y sinusitis J01.00 [place] [address] [place] [id number] [address] [place] [id number] 02 Jun, 2017 [facility] [place] [address] [place] [id number] [address] [place] [id number] May, [place] [address] [place] [id number] [address] [place] [address] May, [place] [address] [id number] May, GERD (gastroesophageal reflu x disease) K21.9 [place] [address] [place] [id number] [address] [place] [id number] May, Migraine without aura and wi thout status migrainosus, not intractable G43.009 [facility] [place] [address] [id number] [address] [place] [id number] May, [facility] [place] [address] [id number] [address] [place] [id number] May, [facility] [place] [address] [facility] [id number] [address] [place] [id number] May, Panlobular emphysema J43.1 a nd Acute non-recurrent maxillary sinusitis J01.00 [facility] [place] [address] [id number] [address] [place] [id number] May, Bipolar 1 disorder, depresse d, moderate F31.32 ; Panic disorder with agoraphobia F40.01 and Akathisia G25.71 [facility] [place] [address] [facility] [id number] [address] [place] [id number] Apr, [facility], [place] [address] [facility] [id number] [address] [place] [id number] Apr, [facility], [place] [address] [facility] [id number] [address] [place] [id number] Apr, Acute non-recurrent maxillar y sinusitis J01.00 [facility], [place] [address] [facility] [id number] [address] [place] [id number] Apr, Panlobular emphysema J43.1 [facility], [place] [address] [facility] [id number] [address] [place] [id number] Apr, [facility] [address] [id number] [address] [place] [id number] 04 Apr, 2017 Exudative tonsillitis J03.90 and Sore throat J02.9 [facility], [place] [address] [facility] [id number] [address] [place] [id number] Mar, [facility], [place], [facility] [address] [facility] [id number] [address] [place] [id number] Mar, Acute non-recurrent maxillar y sinusitis J01.00 [facility], [place], [facility] [address] [facility] [id number] [address] [place] [id number] 13 Mar, 2017 [facility] [place] [address] [facility] [id number] [address] [place] [id number] 09 Mar, 2017 Panlobular emphysema J43.1 a nd Diabetes E11.9 [facility] [place] [address] [facility] [id number] [address] [place] [id number] Mar, [facility] [address] [facility] [id number] [address] [place] [id number] Feb, Wheezing R06.2 and Acute rec urrent pansinusitis J01.41 [facility] [place] [address] [facility] [id number] [address] [place] [id number] Feb, [facility] [place] [address] [place] [id number] [address] [place] [id number] Feb, Acute non-recurrent maxillar y sinusitis J01.00 [facility] [place] [address] [facility] [id number] [address] [place] [id number] Feb, Chronic obstructive pulmonar y disease, unspecified J44.9 [facility] [place] [address] [place] [id number] [address] [place] [id number] Feb, Hypoxemia R09.02 and Chronic obstructive pulmonary disease, unspecified J44.9 [facility] [place] [address] [place] [id number] [address] [place] [id number] Jan, Bipolar 1 disorder, depresse d, moderate F31.32 ; Panic disorder with agoraphobia F40.01 ; Chronic post-traumatic stress disorder (PTSD) F43.12 ; Diabetes E11.9 and Moderate persistent asthma without complication J45.40 [facility] [place] [address] [facility] [id number] [address] [place] [id number] Jan, [facility] [place] [address] [place] [place] [id number] [address] [place] [id number] Jan, Acute non-recurrent maxillar y sinusitis J01.00 [facility] [place] [address] [id number] [address] [place] [id number] 18 Jan, 2017 [facility] [place] [address] [id number] [address] [place] [id number] 18 Jan, 2017 [facility] [place] [address] [id number] [address] [place] [id number] 12 Jan, 2017 Moderate persistent asthma w ithout complication J45.40 and Hypoxemia R09.02 [facility] [place] [address] [id number] [address] [place] [id number] 11 Jan, 2017 Moderate persistent asthma w ithout complication J45.40 and Hypoxemia R09.02 [facility] [place] [address] [id number] [address] [place] [id number] Jan, [facility] [place] [address] [id number] [address] [place] [id number] Dec, Acute non-recurrent maxillar y sinusitis J01.00 [facility] [place] [address] [id number] [address] [place] [id number] Dec, Chronic obstructive pulmonar y disease, unspecified J44.9 [facility] [place] [address] [id number] [address] [place] [id number] Dec, [facility] [place] [address] [id number] [address] [place] [id number] Dec, Mild persistent asthma witho ut complication J45.30 and Other chronic pain G89.29 [facility] [place] [address] [id number] [address] [place] [id number] Nov, [facility] [place] [address] [id number] [address] [place] [id number] Nov, Acute non-recurrent maxillar y sinusitis J01.00 [facility] [place] [address] [id number] [address] [place] [id number] Nov, [facility] [place] [address] [id number] [address] [place] [id number] Nov, [facility] [place] [address] [facility] [id number] [address] [place] [id number] Oct, [facility] [place] [address] [facility] [id number] [address] [place] [id number] Oct, Bipolar 1 disorder, depresse d, partial remission F31.75 ; Panic disorder with agoraphobia F40.01 and Chronic post-traumatic stress disorder (PTSD) F43.12 [facility] [place] [address] [facility] [id number] [address] [place] [id number] Oct, Acute non-recurrent maxillar y sinusitis J01.00 [place] [address] [place] [id number] [address] [place] [id number] Oct, [place] [address] [place] [id number] [address] [place] [id number] Oct, Diabetes E11.9 [place] [address] [facility] [id number] [address] [place] [id number] September, Diabetes E11.9 [facility] [place] [address] [facility] [id number] [address] [place] [id number] September, Diabetes E11.9 and Sinus tac hycardia R00.0 [facility] [place] [address] [facility] [id number] [address] [place] [id number] September, [place] [address] [place] [id number] [address] [place] [id number] September, [facility] [place] [address] [facility] [id number] [address] [place] [id number] Aug, Diabetes E11.9 and Lumbago w ith sciatica, right side M54.41 [facility] [place] [address] [facility] [id number] [address] [place] [id number] Aug, [facility] [place] [address] [place] [id number] [address] [place] [id number] Jul, Bipolar 1 disorder, depresse d, moderate F31.32 ; Panic disorder with agoraphobia F40.01 and Chronic post-traumatic stress disorder (PTSD) F43.12 [facility] [place] [address] [facility] [id number] [address] [place] [id number] Jul, Sore throat J02.9 [facility] [place] [address] [facility] [id number] [address] [place] [id number] Jul, [facility] [place] [address] [facility] [id number] [address] [place] [id number] Jul, [facility] [place] [address] [facility] [id number] [address] [place] [id number] Jul, [facility] [place] [address] [facility] [id number] [address] [place] [id number] Jul, [facility] [place] [address] [facility] [id number] [address] [place] [id number] Jul, Sore throat J02.9 and Pharyn gitis, unspecified etiology J02.9 [facility] [place] [address] [id number] [address] [place] [id number] Jun, [facility] [place] [address] [facility] [id number] [address] [place] [id number] Jun, Diabetes E11.9 [facility] [place] [address] [facility] [id number] [address] [place] [id number] Jun, [facility] [place] [address] [facility] [id number] [address] [place] [id number] Jun, [facility] [place] [address] [facility] [id number] [address] [place] [id number] Jun, [facility] [place] [address] [facility] [id number] [address] [place] [phone] Jun, [facility] [place] [address] [facility] [id number] [address] [place] [id number] Jun, [facility] [place] [address] [facility] [id number] [address] [place] [id number] 15 Jun, 2016 [facility] [place] [address] [id number] [address] [place] [id number] Jun, [facility] [place] [address] [id number] [address] [place] [id number] Jun, [facility] [place] [address] [id number] [address] [place] [id number] May, Diabetes E11.9 ; Other chron ic pain G89.29 ; Acute recurrent maxillary sinusitis J01.01 ; Bipolar I disorder with depression F31.9 and Anxiety disorder, unspecified F41.9 [facility] [place] [address] [id number] [address] [place] [id number] May, [facility] [place] [address] [id number] [address] [place] [id number] May, Diabetes E11.9 ; Bipolar I d isorder with depression F31.9 ; Anxiety disorder, unspecified F41.9 ; Other chronic pain G89.29 and Acute recurrent maxillary sinusitis J01.01 [facility] [place] [address] [id number] [address] [place] [id number] May, [facility] [place] [address] [id number] [address] [place] [id number] May, Attention deficit hyperactiv ity disorder (ADHD), predominantly inattentive type F90.0 [facility] [place] [address] [id number] [address] [place] [id number] May, [facility] [place] [address] [id number] [address] [place] [id number] Apr, Attention deficit hyperactiv ity disorder (ADHD), predominantly inattentive type F90.0 and Non-seasonal allergic rhinitis due to other allergic trigger J30.89 [facility] [place] [address] [id number] [address] [place] [id number] Apr, Bipolar 1 disorder, depresse d, moderate F31.32 ; Panic disorder with agoraphobia F40.01 and Chronic post-traumatic stress disorder (PTSD) F43.12 [facility] [place] [address] [id number] [address] [place] [id number] Apr, Dental examination Z01.20 [facility] [place] [address] [id number] [address] [place] [id number] Mar, [facility] [place] [address] [id number] [address] [place] [id number] Mar, [facility] [place] [address] [id number] [address] [place] [id number] Mar, Bipolar I disorder with depr ession F31.9 and Anxiety disorder, unspecified F41.9 [facility] [place] [address] [id number] [address] [place] [id number] 08 Mar, 2016 Panic disorder with agorapho syd F40.01 ; Bipolar 1 disorder, depressed, moderate F31.32 and Chronic post-traumatic stress disorder (PTSD) F43.12 [facility] [place] [address] [id number] [address] [place] [id number] 04 Mar, 2016 [facility] [place] [address] [id number] [address] [place] [id number] 02 Mar, 2016 Dental caries K02.9 [facility] [place] [address] [id number] [address] [place] [id number] 24 Feb, 2016 Lumbago with sciatica, left side M54.42 ; Lumbago with sciatica, right side M54.41 and Other chronic pain G89.29 [facility] [place] [address] [id number] [address] [place] [id number] 17 Feb, 2016 [facility] [place] [address] [id number] [address] [place] [id number] 14 Feb, 2016 [facility] [place] [address] [id number] [address] [place] [id number] 13 Feb, 2016 Bipolar I disorder with depr ession F31.9 ; PTSD (post-traumatic stress disorder) F43.10 and Mood disorder F39 [facility] [place] [address] [facility] [id number] [address] [place] [id number] Feb, [facility] [place] [address] [facility] [id number] [address] [place] [id number] Feb, Dental examination Z01.20 [facility] [place] [address] [place] [id number] [address] [place] [id number] Feb, [facility] [address] [facility] [id number] [address] [place] [id number] Feb, Acute bronchitis, unspecifie d organism J20.9 [facility] [place] [address] [place] [id number] [place] [address] Jan, Mood disorder F39 ; Migraine without aura and without status migrainosus, not intractable G43.009 ; Irritable bowel syndrome, unspecified type K58.9 ; Diabetes E11.9 and Encounter for immunization Z23 [facility] [place] [address] [place] [id number] [address] [place] [id number] 15 Jan, 2016 [facility] [place] [address] [place] [id number] [address] [place] [id number] Jan, [facility] [place] [address] [place] [id number] [address] [place] [id number] Jan, [facility] [place] [address] [place] [id number] [address] [place] [id number] Jan, [place] [address] [place] [id number] [address] [place] [id number] Jan, [facility] [place] [address] [place] [id number] [address] [place] [id number] Dec, Bipolar I disorder with depr ession F31.9 ; PTSD (post-traumatic stress disorder) F43.10 and Panic disorder with agoraphobia F40.01 [facility] [place] [address] [place] [id number] [address] [place] [id number] Dec, Chronic obstructive pulmonar y disease, unspecified COPD type J44.9 ; Tremor R25.1 and Anxiety F41.9 [facility] [place] [address] [id number] [address] [place] [id number] Dec, [facility] [place] [address] [facility] [id number] [address] [place] [id number] Nov, Tremors of nervous system R2 5.1 and Cramping of feet R25.2 [facility] [place] [address] [id number] [address] [place] [id number] Nov, [facility] [place] [address] [facility] [id number] [address] [place] [id number] Nov, [facility] [place] [address] [facility] [id number] [address] [place] [id number] Oct, Chronic obstructive pulmonar y disease, unspecified J44.9 [facility] [place] [address] [facility] [id number] [address] [place] [id number] Oct, [facility] [place] [address] [facility] [id number] [address] [place] [id number] Oct, Tremor R25.1 [facility] [place] [address] [facility] [id number] [address] [place] [id number] Oct, Bipolar I disorder with depr ession F31.9 ; Diabetes E11.9 ; PTSD (post-traumatic stress disorder) F43.10 and Panic disorder with agoraphobia F40.01 [facility] [place] [address] [facility] [id number] [address] [place] [id number] Oct, Mood disorder F39 [facility] [place] [address] [facility] [id number] [address] [place] [id number] September, [facility] [place] [address] [facility] [id number] [address] [place] [id number] September, Diabetes E11.9 ; Bipolar I d isorder with depression F31.9 ; PTSD (post-traumatic stress disorder) F43.10 and Panic disorder with agoraphobia F40.01 [facility] [place] [address] [id number] [address] [place] [id number] September, Mood disorder F39 ; Schizoaf fective disorder, unspecified type F25.9 ; Arthritis M19.90 ; Tremor R25.1 ; Acute non-recurrent frontal sinusitis J01.10 and Blood in stool K92.1 [facility] [place] [address] [id number] [address] [place] [id number] September, [facility] [place] [address] [id number] [address] [place] [id number] September, Chronic obstructive pulmonar y disease, unspecified J44.9 [facility] [place] [address] [id number] [address] [place] [id number] September, Diabetes E11.9 [facility] [place] [address] [id number] [address] [place] [id number] Aug, Other bipolar disorder F31.8 9 and Anxiety disorder, unspecified F41.9 [facility] [place] [address] [id number] [address] [place] [id number] Aug, [facility] [place] [address] [id number] [address] [place] [id number] Aug, Diabetes E11.9 [facility] [place] [address] [id number] [address] [place] [id number] 18 Aug, 2015 [facility] [place] [address] [id number] [address] [place] [id number] 14 Aug, 2015 Diabetes E11.9 ; Fatigue R53 .83 and Dizziness R42 [facility] [place] [address] [id number] [address] [place] [id number] 13 Aug, 2015 Other bipolar disorder F31.8 9 [facility] [place] [address] [id number] [address] [place] [id number] 07 Aug, 2015 Generalized anxiety disorder F41.1 [facility] [place] [address] [facility] [id number] [address] [place] [id number] 07 Aug, 2015 Other bipolar disorder F31.8 9 and Anxiety disorder, unspecified F41.9 [facility] [place] [address] [id number] [address] [place] [id number] Aug, [facility] [place] [address] [facility] [id number] [address] [place] [id number] 29 Jul, 2015 [facility] [place] [address] [id number] [address] [place] [id number] Jul, [facility] [place] [address] [id number] [address] [place] [id number] Jul, Bronchitis J40 [facility] [place] [address] [facility] [id number] [address] [place] [id number] Jul, Anxiety disorder F41.9 [facility] [place] [address] [facility] [id number] [address] [place] [id number] Jul, Other bipolar disorder F31.8 9 and Anxiety disorder, unspecified F41.9 [facility] [place] [address] [facility] [id number] [address] [place] [id number] 18 Jul, 2015 Other bipolar disorder F31.8 9 and Fibromyalgia M79.7 [facility] [place] [address] [facility] [id number] [address] [place] [id number] Jul, [facility] [place] [address] [facility] [id number] [address] [place] [id number] Jul, [facility] [place] [address] [facility] [id number] [address] [place] [id number] Jul, [facility], [place], [facility] [address] [facility] [id number] [address] [place] [id number] Jul, Other bipolar disorder F31.8 9 and Anxiety disorder, unspecified F41.9 [facility], [place], [facility] [address] [facility] [id number] [address] [place] [id number] 25 Jun, 2015 GERD (gastroesophageal reflu x disease) K21.9 [facility], [place], [facility] [address] [facility] [id number] [address] [place] [id number] Jun, [facility], [place], [facility] [address] [place] [id number] [address] [place] [id number] May, [facility], [place], [facility] [address] [id number] May, Diabetes E11.9 ; Back pain M 54.9 ; GERD (gastroesophageal reflux disease) K21.9 ; Hypertension I10 and Peripheral neuropathy G62.9 [facility], [place], [facility] [address] [id number] Mar, [facility], [place], [facility] [address] [id number] Mar, [facility], [place], [facility] [address] [id number] Mar, Acute sinusitis J01.90 and O titis media, left H66.92 [facility], [place], [facility] [address] [id number] Feb, [facility], [place], [facility] [address] [id number] Feb, [facility], [place], [facility] [address] [id number] Feb, [facility], [place], [facility] [address] [id number] Feb, [facility], [place], [facility] [address] [id number] Jan, [facility], [place], [facility] [address] [id number] Jan, Diabetes 250.00 and Back higinio n 724.5 [facility], [place], [facility] [address] [place] [id number] [address] [place] [phone] Jan, [facility], [place], [facility] [address] [id number] [address] [place] [address] Dec, Diabetes 250.00 ; Benign ess ential hypertension 401.1 and Allergic rhinitis 477.9 [facility] [place], [facility] [address] [facility] [id number] [address] [place] [id number] Dec, [facility] [place] [address] [facility] [id number] [address] [place] [id number] Dec, [facility] [place] [address] [facility] [id number] [address] [place] [id number] Dec, Psychosis 298.9 [facility] [place], [facility] [address] [facility] [id number] [address] [place] [id number] Dec, Medication side effect 995.2 0 and Generalized anxiety disorder 300.02 [facility] [place] [address] [facility] [id number] [address] [place] [id number] Dec, Acquired cognitive dysfuncti on 294.9 [facility] [place] [address] [id number] [address] [place] [id number] Dec, [facility] [place] [address] [id number] [address] [place] [id number] Dec, Unspecified myalgia and myos itis 729.1 and Generalized anxiety disorder 300.02 [facility] [place], [facility] [address] [id number] [address] [place] [id number] Nov, [facility] [place] [address] [id number] [address] [place] [id number] Nov, [facility] [place] [address] [id number] [address] [place] [id number] Nov, [facility] [place] [address] [facility] [id number] [address] [place] [id number] Nov, Upper respiratory infection 465.9 and Chronic airway obstruction, not elsewhere classified 496 [facility] [place] [address] [facility] [id number] [address] [place] [id number] Nov, Hyponatremia 276.1 [facility] [place], [facility] [address] [id number] [address] [place] [id number] Oct, [facility] [place] [address] [id number] [address] [place] [id number] 12 Oct, 2014 [facility] [place], [facility] [address] [id number] [address] [place] [id number] Oct, [facility] [address] [id number] [address] [place] [id number] 10 Oct, 2014 [facility] [place] [address] [facility] [id number] [address] [place] [id number] 04 Oct, 2014 Hyponatremia 276.1 [facility] [place], [facility] [address] [id number] [address] [place] [id number] Oct, [facility] [place] [address] [facility] [id number] [address] [place] [id number] Oct, [facility] [place] [address] [facility] [id number] [address] [place] [id number] Oct, Generalized anxiety disorder 300.02 [facility] [place], [facility] [address] [facility] [id number] [address] [place] [id number] Oct, Generalized anxiety disorder 300.02 and Diabetes 250.00 [facility] [place], [facility] [address] [id number] [address] [place] [id number] Aug, [facility] [place] [address] [facility] [id number] [address] [place] [id number] Aug, [facility] [place] [address] [facility] [id number] [address] [place] [id number] Jul, [facility] [place] [address] [id number] [address] [place] [id number] Jul, [facility] [place] [address] [id number] [address] [place] [id number] Jun, [facility] [place] [address] [facility] [id number] [address] [place] [id number] Jun, [facility] [place] [address] [facility] [id number] [address] [place] [id number] Jun, [facility] [address] [id number] [address] [place] [address], [place] [id number] Jun, [facility] [address] [id number] [address] [place] [address], [place] [id number] Jun, [facility] [address] [id number] [address] [place] [address], [place] [id number] May, [facility] [address] [id number] [address] [place] [address], [place] [id number] May, [facility] [address] [id number] [address] [place] [address], [place] [address] Apr, [facility] [address] [id number] [address] [place] [address], [place] [id number] Apr, [facility] [address] [id number] [address] [place] [address], [place] [id number] Apr, [facility] [address] [id number] [address] [place] [address], [place] [id number] Apr, [facility] [address] [id number] [address] [place] [address], [place] [address] Apr, [facility] [address] [id number] [address] [place] [address], [place] [address] Apr, [facility] [address] [id number] [address] [place] [address], [place] [id number] Apr, [facility] [address] [id number] [address] [place] [address], [place] [id number] Apr, [facility] [address] [id number] [address] [place] [address], [place] [address] Feb, [facility] [address] [id number] [address] [place] [address], [place] [id number] Feb, [facility] [address] [id number] [address] [place] [address], [place] [address] Jan, [facility] [address] [id number] [address] [place] [address], [place] [address] Jan, [facility] [address] [id number] [address] [place] [address], [place] [address] Dec, [facility] [address] [id number] [address] [place] [address], [place] [address] Dec, [facility] [address] [id number] [address] [place] [address], [place] [id number] Dec, [facility] [address] [id number] [address] [place] [address], [place] [address] Nov, [facility] [address] [id number] [address] [place] [address], [place] [address] Nov, [facility] [address] [id number] [address] [place] [address], [place] [address] Nov, [facility] [address] [id number] [address] [place] [address], [place] [id number] Oct, [facility] [address] [id number] [address] [place] [address], [place] [id number] Oct, [facility] [address] [id number] [address] [place] [address], [place] [id number] Oct, [facility] [address] [id number] [address] [place] [address], [place] [address] September, [facility] [address] [id number] [address] [place] [address], [place] [address] September, [facility] [address] [id number] [address] [place] [address], [place] [address] September, [facility] [address] [id number] [address] [place] [address], [place] [address] Aug, [facility] [address] [id number] [address] [place] [address], [place] [address] Aug, [facility] [address] [id number] [address] [place] [address], [place] [address] Aug, [facility] [address] [id number] [address] [place] [address], [place] [id number] 16 Aug, 2011 [facility] [address] [id number] [address] [place] [address], [place] [address] Jul, [facility] [address] [id number] [address] [place] [address], [place] [address] 21 Jun, 2011 [facility] [address] [id number] [address] [place] [address], [place] [address] 14 Jun, 2011 [facility] [address] [id number] [address] [place] [address], [place] [id number] 13 Jun, 2011 [facility] [address] [id number] [address] [place] [address], [place] [address] 07 Jun, 2011 [facility] [address] [id number] [address] [place] [address], [place] [address] 03 Jun, 2011 [facility] [address] [id number] [address] [place] [address], [place] [address] 13 May, 2011 [facility] [address] [id number] [address] [place] [address], [place] [address] 10 May, 2011 [facility] [address] [id number] [address] [place] [address], [place] [id number] 09 May, 2011 [facility] [address] [id number] [address] [place] [address], [place] [id number] 04 May, 2011 [facility] [address] [id number] [address] [place] [address], [place] [address] Apr, [facility] [address] [id number] [address] [place] [address], [place] [address] 13 Apr, 2011 [facility] [address] [id number] [address] [place] [address], [place] [address] 05 Apr, 2011 [facility] [address] [id number] [address] [place] [address], [place] [id number] 22 Mar, 2011 [facility] [address] [id number] [address] [place] [address] [address] Mar, [facility] [place] [address] [id number] [address] [place] [id number] Mar, [facility] [place] [address] [id number] [address] [place] [id number] 13 Feb, 2011 [facility] [place] [address] [id number] [address] [place] [id number] 13 Feb, 2011 [facility] [place] [address] [id number] [address] [place] [id number] 13 Feb, 2011 [facility] [place] [address] [id number] [address] [place] [id number] Nov, [facility] [place] [address] [id number] [address] [place] [id number] September, [facility] [place] [address] [id number] [address] [place] [id number] Aug, [facility] [place] [address] [id number] [address] [place] [id number] Jul, [facility] [place] [address] [id number] [address] [place] [id number] May, [facility] [place] [address] [id number] [address] [place] [id number] Apr, [facility] [place] [address] [id number] [address] [place] [id number] Apr, [facility] [place] [address] [id number] [address] [place] [id number] Apr, [facility] [place] [address] [id number] [address] [place] [id number] Apr, [facility] [place] [address] [id number] [address] [place] [id number] Apr, IMMUNIZATIONS No Known Immunizations SOCIAL HISTORY Never Assessed REASON FOR VISIT Medication refill request PLAN OF CARE VITAL SIGNS MEDICATIONS Medication Instructions Dosage Frequency Start Date End Date Duration S tatus MiraLax - Orally 3 times a day until you have a BM then Reduce to once daily. 17 grams mixed with 8 oz of fluid 30 days Active RESULTS No Results PROCEDURES [...]
--- OUTSIDE RECORDS SUMMARY | 2019-07-17 10:48 | XMS REPORT ---
Author Author Sujey GANDHI Organization [facility] Address [address] [place] [address] Care Team Providers Care Platform Stapler Name Role Phone WHIT GANDHI Unavailable PROBLEMS Type Condition ICD9-CM Code TQK87-AE Code Onset Dates Condition S tatus SNOMED Code Problem Diabetes E11.9 Active 30834053 Problem GERD (gastroesophageal reflux disease) K21.9 Active 327892182 Problem Anxiety disorder, unspecified F41.9 Active 007498225 Problem Hypertension I10 Active 2023939 3 Problem Other bipolar disorder F31.89 Active 50290872 Problem Fibromyalgia M79.7 Active 7051333 7 Problem Panic disorder with agoraphobia F40.01 Active 72364452 Problem Chronic obstructive pulmonary disease, unspecified J44.9 Active 07908565 Problem Lumbago with sciatica, left side M54.42 Active 896426756 Problem Migraine without aura and without status migrain osus, not intractable G43.009 Active 038908894 Problem Lumbago with sciatica, right side M54.41 Active 654133030 Problem Fibrocystic disease of right breast N60.11 Active 98916018 Problem Other chronic pain G89.29 Active 8 2034015 Problem Fibrocystic disease of left breast N60.12 Active 67391198 Problem Irritable bowel syndrome with constipation K58.1 Active 029145712 Problem Arthritis M19.90 Active 8040544 Problem Abnormal mammogram of right breast R92.8 Active 329455752 Problem Daytime somnolence R40.0 Active 1 55011504586 Problem Bipolar affective disorder, remission status unspecified F31.9 Active 34419103 Problem Chronic post-traumatic stress disorder (PTSD) F43. 12 Active 982830677 Problem Bipolar 1 disorder, depressed, moderate F31.32 Active 06560939 Problem Schizoaffective disorder, bipolar type F25.0 Active 64576682 Problem Irritable bowel syndrome with both constipation and diarrh ea K58.2 Active 01980083 Problem Slow transit constipation K59.01 Acti ve 57596535 Problem Essential tremor G25.0 Active 609 563699 Problem Acute non-recurrent maxillary sinusitis J01.00 Active 05273315 Problem Back pain M54.9 Active 791229740 Problem Bipolar 1 disorder, depressed, partial remission F 31.75 Active 95119543 Problem Attention deficit hyperactiv ity disorder (ADHD), predominantly inattentive type F90.0 Active 76017899 Problem Bipolar I disorder with depression F31.9 Active 96175370 Problem Panlobular emphysema J43.1 Active 2082908 Problem Akathisia G25.71 Active 859822730 Problem Mild persistent asthma without complication J45.30 Active 914411130 Problem Moderate persistent asthma without complication J4 5.40 Active 343753946 ALLERGIES No Information ENCOUNTERS Encounter Location Date Diagnosis [facility] [address] [facility] [id number] [address] [place] [address] Mar, [facility] [address] [address] Mar, [facility] [address] [place] [id number] [address] [place] [address] Mar, [facility] [address] [address] Mar, [facility] [address] [place] [id number] [address] [place] [address] Mar, Diabetes E11.9 [facility] [address] [place] [id number] [address] [place] [address] Mar, [facility] [address] [facility] [id number] [address] [place] [address] Feb, Daytime somnolence R40.0 and Anxiety disorder, unspecified F41.9 [facility] [address] [facility] [id number] [address] [place] [address] Feb, [facility] [address] [facility] [id number] [address] [place] [address] Feb, [facility] [address] [place] [id number] [address] [place] [address] Feb, Tremors of nervous system R2 5.1 and Acute swimmer''s ear of right side H60.331 [facility] [address] [facility] [id number] [address] [place] [address] Feb, Cerebrovascular accident (CV A) due to occlusion of right cerebellar artery I63.541 and Hypertension I10 [facility] [address] [facility] [id number] [address] [place] [address] Feb, [facility] [address] [facility] [id number] [address] [place] [address] Feb, Cerebrovascular accident (CV A) due to occlusion of right cerebellar artery I63.541 [facility] [address] [id number] [id number] Feb, Hyponatremia E87.1 [place] [address] [facility] [id number] [address] [place] [address] Feb, [facility] [address] [facility] [id number] [address] [place] [address] Feb, Daytime somnolence R40.0 [facility] [address] [facility] [id number] [address] [place] [address] Feb, [facility] [address] [facility] [id number] [address] [place] [address] Jan, [facility] [address] [facility] [id number] [address] [place] [address] Jan, [facility] [address] [facility] [id number] [address] [place] [address] Jan, Chronic obstructive pulmonar y disease, unspecified J44.9 and Anxiety disorder, unspecified F41.9 [facility] [address] [facility] [id number] [address] [place] [address] Jan, Hypertension I10 ; Fibromyal medhat M79.7 and Lumbago with sciatica, left side M54.42 [facility] [address] [id number] [address] [place] [address] 26 Jan, 2018 [facility] [address] [facility] [id number] [address] [place] [address] 20 Jan, 2018 Cerebrovascular accident (CV A) due to occlusion of right cerebellar artery I63.541 [facility] [address] [facility] [id number] [address] [place] [address] 19 Jan, 2018 [facility] [address] [facility] [id number] [address] [place] [address] 13 Jan, 2018 Arthritis M19.90 [place] [address] [facility] [id number] [address] [place] [address] 07 Jan, 2018 [place] [address] [place] [id number] [address] [place] [address] 04 Jan, 2018 Abnormal mammogram of right breast R92.8 [place] [address] [place] [id number] [address] [place] [address] Dec, Daytime somnolence R40.0 and Right otitis media with effusion H65.91 [place] [address] [facility] [id number] [address] [place] [address] Dec, [place] [address] [facility] [id number] [address] [place] [address] Dec, Cerebrovascular accident (CV A) due to occlusion of right cerebellar artery I63.541 [facility] [address] [facility] [id number] [address] [place] [address] Dec, [facility] [address] [facility] [id number] [address] [place] [address] Dec, [place] [address] [place] [id number] [address] [place] [address] Nov, Bipolar 1 disorder, depresse d, partial remission F31.75 and Panic disorder with agoraphobia F40.01 [place] [address] [place] [id number] [address] [place] [address] Nov, Panlobular emphysema J43.1 [facility] [address] [id number] [address] [place] [address] Nov, Cerebrovascular accident (CV A) due to occlusion of right cerebellar artery I63.541 and Acute non-recurrent maxillary sinusitis J01.00 [facility] [address] [id number] [address] [place] [address] Nov, Panlobular emphysema J43.1 [facility] [address] [id number] [address] [place] [address] Nov, [facility] [address] [id number] [address] [place] [address] Nov, [facility] [address] [id number] [address] [place] [address] Nov, [facility] [address] [id number] [address] [place] [address] Nov, [facility] [address] [id number] [address] [place] [address] Nov, [facility] [address] [id number] [address] [place] [address] Nov, [facility] [address] [id number] [address] [place] [address] Nov, [facility] [address] [id number] [address] [place] [address] Nov, Mild persistent asthma witho ut complication J45.30 and Irritable bowel syndrome with both constipation and diarrhea K58.2 [facility] [address] [id number] [address] [place] [address] Nov, [facility] [address] [id number] [address] [place] [address] Oct, [facility] [address] [id number] [address] [place] [address] Oct, [facility] [address] [id number] [address] [place] [address] Oct, Type 2 diabetes mellitus wit h diabetic neuropathy, 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 ; Diabetes E11.9 ; Slow transit constipation K59.01 ; Edema of both legs R60.0 and Dysfunction of right eustachian tube H69.81 [facility] [address] [id number] [address] [place] [address] Oct, Frequent headaches R51 [facility] [address] [id number] [address] [place] [address] Oct, [facility] [address] [id number] [address] [place] [address] Oct, [facility] [address] [facility] [id number] [address] [place] [address] Oct, [facility] [address] [facility] [id number] [address] [place] [address] Oct, [facility] [address] [facility] [id number] [address] [place] [address] Oct, [facility] [address] [facility] [id number] [address] [place] [address] Oct, [facility] [address] [facility] [id number] [address] [place] [address] Oct, [facility] [address] [facility] [id number] [address] [place] [address] Oct, [facility] [address] [facility] [id number] [address] [place] [address] September, Frequent headaches R51 [facility] [address] [facility] [id number] [address] [place] [address] September, Bilateral otitis media with effusion H65.93 ; Dizziness R42 and Essential tremor G25.0 [facility] [address] [id number] [address] [place] [address] September, Chronic obstructive pulmonar y disease, unspecified COPD type J44.9 [facility] [address] [id number] [address] [place] [address] September, Chronic obstructive pulmonar y disease, unspecified COPD type J44.9 [facility] [address] [id number] [address] [place] [address] September, Migraine without aura and wi thout status migrainosus, not intractable G43.009 [facility] [address] [id number] [address] [place] [address] September, [facility] [address] [id number] [address] [place] [address] September, [facility] [address] [facility] [id number] [address] [place] [address] September, [facility] [address] [facility] [id number] [address] [place] [address] September, Frequent headaches R51 [facility] [address] [id number] [address] [place] [address] Aug, [facility] [address] [facility] [id number] [address] [place] [address] Aug, Breast mass, right N63.10 [facility] [address] [facility] [id number] [address] [place] [address] Aug, Breast lump N63.0 [facility] [address] [facility] [id number] [address] [place] [address] Aug, [facility] [address] [facility] [id number] [address] [place] [address] Aug, Bipolar affective disorder, remission status unspecified F31.9 and Diabetes E11.9 [facility] [address] [facility] [id number] [address] [place] [address] Aug, Diabetes E11.9 ; Schizoaffec tive disorder, bipolar type F25.0 ; Pharyngitis due to other organism J02.8 ; Panlobular emphysema J43.1 and Irritable bowel syndrome with both constipation and diarrhea K58.2 [place] [address] [id number] [address] [place] [address] Aug, Abnormal mammogram R92.8 [facility] [address] [id number] [address] [place] [address] Aug, [facility] [address] [id number] [address] [place] [address] Aug, Bipolar 1 disorder, depresse d, moderate F31.32 ; Panic disorder with agoraphobia F40.01 and Chronic post-traumatic stress disorder (PTSD) F43.12 [place] [address] [id number] [address] [place] [address] Aug, [place] [address] [id number] [address] [place] [address] Aug, [place] [address] [id number] [address] [place] [address] Aug, [place] [address] [id number] [address] [place] [address] Jul, [place] [address] [facility] [id number] [address] [place] [address] Jul, Mild persistent asthma witho ut complication J45.30 [place] [address] [id number] [address] [place] [address] Jul, Mild persistent asthma witho ut complication J45.30 [place] [address] [id number] [address] [place] [address] 15 Jul, 2017 Bipolar affective disorder, remission status unspecified F31.9 ; Diabetes E11.9 and Irritable bowel syndrome with constipation K58.1 [place] [address] [id number] [address] [place] [address] Jul, [place] [address] [facility] [id number] [address] [place] [address] Jul, [facility] [address] [facility] [id number] [address] [place] [address] Jul, Frequent headaches R51 [facility] [address] [facility] [id number] [address] [place] [address] Jul, [facility] [address] [facility] [id number] [address] [place] [address] Jul, [facility] [address] [facility] [id number] [address] [place] [address] Jul, [facility] [address] [facility] [id number] [address] [place] [address] Jul, Frequent headaches R51 ; Fib rocystic disease of left breast N60.12 ; Fibrocystic disease of right breast N60.11 and Diabetes E11.9 [place] [address] [facility] [id number] [address] [place] [address] Jul, [place] [address] [facility] [id number] [address] [place] [address] Jul, [place] [address] [address] Jun, Exudative tonsillitis J03.90 [place] [address] [place] [id number] [address] [place] [address] Jun, [place] [address] [place] [id number] [address] [place] [address] 19 Jun, 2017 [place] [address] [facility] [id number] [address] [place] [address] 15 Jun, 2017 Mild persistent asthma witho ut complication J45.30 ; Chronic obstructive pulmonary disease, unspecified COPD type J44.9 and Exudative tonsillitis J03.90 [place] [address] [facility] [id number] [address] [place] [address] 13 Jun, 2017 Encounter for immunization Z 23 [place] [address] [place] [id number] [place] [address] Jun, [facility] [address] [facility] [id number] [address] [place] [address] Jun, [facility] [address] [facility] [id number] [address] [place] [address] Jun, [facility] [address] [facility] [id number] [address] [place] [address] 06 Jun, 2017 Tonsillitis J03.90 [facility] [address] [facility] [id number] [address] [place] [address] Jun, [facility] [address] [facility] [id number] [address] [place] [address] Jun, Acute non-recurrent maxillar y sinusitis J01.00 [facility] [address] [facility] [id number] [address] [place] [address] Jun, [facility] [address] [facility] [id number] [address] [place] [address] May, [facility] [address] [facility] [id number] [address] [place] [address] May, [facility] [address] [facility] [id number] [address] [place] [address] May, GERD (gastroesophageal reflu x disease) K21.9 [facility] [address] [facility] [id number] [address] [place] [address] May, Migraine without aura and wi thout status migrainosus, not intractable G43.009 [facility] [address] [facility] [id number] [address] [place] [address] May, [facility] [address] [facility] [id number] [address] [place] [address] May, [facility] [address] [facility] [id number] [address] [place] [address] May, Panlobular emphysema J43.1 a nd Acute non-recurrent maxillary sinusitis J01.00 [facility] [address] [id number] [address] [place] [address] May, Bipolar 1 disorder, depresse d, moderate F31.32 ; Panic disorder with agoraphobia F40.01 and Akathisia G25.71 [facility] [address] [id number] [address] [place] [address] Apr, [facility] [address] [id number] [address] [place] [address] Apr, [facility] [address] [facility] [id number] [address] [place] [address] Apr, Acute non-recurrent maxillar y sinusitis J01.00 [facility] [address] [facility] [id number] [address] [place] [address] Apr, Panlobular emphysema J43.1 [facility] [address] [id number] [address] [place] [address] Apr, [facility] [address] [facility] [id number] [address] [place] [address] 04 Apr, 2017 Exudative tonsillitis J03.90 and Sore throat J02.9 [facility] [address] [facility] [id number] [address] [place] [address] 17 Mar, 2017 [facility] [address] [facility] [id number] [address] [place] [address] 15 Mar, 2017 Acute non-recurrent maxillar y sinusitis J01.00 [facility] [address] [id number] [address] [place] [address] Mar, [facility] [address] [facility] [id number] [address] [place] [address] 09 Mar, 2017 Panlobular emphysema J43.1 a nd Diabetes E11.9 [facility] [address] [facility] [id number] [address] [place] [address] Mar, [facility] [address] [facility] [id number] [address] [place] [address] 24 Feb, 2017 Wheezing R06.2 and Acute rec urrent pansinusitis J01.41 [facility] [address] [facility] [id number] [address] [place] [address] Feb, [facility] [address] [facility] [id number] [address] [place] [address] Feb, Acute non-recurrent maxillar y sinusitis J01.00 [facility] [address] [facility] [id number] [address] [place] [address] Feb, Chronic obstructive pulmonar y disease, unspecified J44.9 [facility] [address] [facility] [id number] [address] [place] [address] Feb, Hypoxemia R09.02 and Chronic obstructive pulmonary disease, unspecified J44.9 [facility] [address] [facility] [id number] [address] [place] [address] 28 Jan, 2017 Bipolar 1 disorder, depresse d, moderate F31.32 ; Panic disorder with agoraphobia F40.01 ; Chronic post-traumatic stress disorder (PTSD) F43.12 ; Diabetes E11.9 and Moderate persistent asthma without complication J45.40 [facility] [address] [facility] [id number] [address] [place] [id number] 22 Jan, 2017 [facility] [address] [facility] [id number] [address] [place] [id number] 19 Jan, 2017 Acute non-recurrent maxillar y sinusitis J01.00 [facility] [address] [facility] [id number] [address] [place] [id number] 18 Jan, 2017 [facility] [address] [facility] [id number] [address] [place] [id number] 18 Jan, 2017 [facility] [address] [facility] [id number] [address] [place] [id number] 12 Jan, 2017 Moderate persistent asthma w [facility] complication J45.40 and Hypoxemia R09.02 [facility] [address] [id number] [address] [place] [phone] Jan, Moderate persistent asthma w [facility] complication J45.40 and Hypoxemia R09.02 [facility] [address] [id number] [address] [place] [id number] Jan, [facility] [address] [id number] [address] [place] [phone] Dec, Acute non-recurrent maxillar y sinusitis J01.00 [facility] [address] [id number] [address] [place] [id number] Dec, Chronic obstructive pulmonar y disease, unspecified J44.9 [facility] [address] [id number] [address] [place] [id number] Dec, [facility] [address] [id number] [address] [place] [phone] Dec, [facility] J[facility].30 and Other chronic pain G89.29 [facility] [address] [id number] [address] [place] [phone] Nov, [facility] [address] [id number] [address] [place] [id number] Nov, Acute non-recurrent maxillar y sinusitis J01.00 [facility] [address] [address] [id number] [address] [place] [address] Nov, [facility] [address] [id number] [address] [place] [address] Nov, [facility] [address] [id number] [address] [place] [address] Oct, [facility] [address] [facility] [id number] [address] [place] [address] Oct, Bipolar 1 disorder, depresse d, partial remission F31.75 ; Panic disorder with agoraphobia F40.01 and Chronic post-traumatic stress disorder (PTSD) F43.12 [facility] [address] [id number] [address] [place] [address] Oct, Acute non-recurrent maxillar y sinusitis J01.00 [facility] [address] [id number] [address] [place] [address] Oct, [facility] [address] [facility] [id number] [address] [place] [address] Oct, Diabetes E11.9 [facility] [address] [id number] [address] [place] [address] September, Diabetes E11.9 [facility] [address] [id number] [address] [place] [address] September, Diabetes E11.9 and Sinus tac hycardia R00.0 [facility] [address] [facility] [id number] [address] [place] [address] September, [facility] [address] [facility] [id number] [address] [place] [address] September, [facility] [address] [facility] [id number] [address] [place] [address] Aug, Diabetes E11.9 and Lumbago w ith sciatica, right side M54.41 [facility] [address] [facility] [id number] [address] [place] [address] Aug, [facility] [address] [facility] [id number] [address] [place] [address] Jul, Bipolar 1 disorder, depresse d, moderate F31.32 ; Panic disorder with agoraphobia F40.01 and Chronic post-traumatic stress disorder (PTSD) F43.12 [facility] [address] [facility] [id number] [address] [place] [address] Jul, Sore throat J02.9 [facility] [address] [facility] [id number] [address] [place] [address] Jul, [facility] [address] [id number] [address] [place] [address] Jul, [facility] [address] [id number] [address] [place] [address] Jul, [facility] [address] [id number] [address] [place] [address] Jul, [facility] [address] [id number] [address] [place] [address] Jul, Sore throat J02.9 and Pharyn gitis, unspecified etiology J02.9 [facility] [address] [id number] [address] [place] [address] Jun, [facility] [address] [id number] [address] [place] [address] Jun, Diabetes E11.9 [facility] [address] [id number] [address] [place] [address] Jun, [facility] [address] [id number] [address] [place] [address] Jun, [facility] [address] [id number] [address] [place] [address] Jun, [facility] [address] [id number] [address] [place] [address] Jun, [facility] [address] [id number] [address] [place] [address] Jun, [facility] [address] [id number] [address] [place] [address] Jun, [facility] [address] [id number] [address] [place] [address] Jun, [facility] [address] [id number] [address] [place] [address] Jun, [facility] [address] [id number] [address] [place] [address] May, Diabetes E11.9 ; Other chron ic pain G89.29 ; Acute recurrent maxillary sinusitis J01.01 ; Bipolar I disorder with depression F31.9 and Anxiety disorder, unspecified F41.9 [facility] [address] [id number] [address] [place] [address] May, [facility] [address] [facility] [id number] [address] [place] [address] May, Diabetes E11.9 ; Bipolar I d isorder with depression F31.9 ; Anxiety disorder, unspecified F41.9 ; Other chronic pain G89.29 and Acute recurrent maxillary sinusitis J01.01 [facility] [address] [facility] [id number] [address] [place] [address] May, [facility] [address] [facility] [id number] [address] [place] [address] May, Attention deficit hyperactiv ity disorder (ADHD), predominantly inattentive type F90.0 [facility] [address] [facility] [id number] [address] [place] [address] May, [facility] [address] [facility] [id number] [address] [place] [address] Apr, Attention deficit hyperactiv ity disorder (ADHD), predominantly inattentive type F90.0 and Non-seasonal allergic rhinitis due to other allergic trigger J30.89 [facility] [address] [place] [id number] [address] [place] [address] Apr, Bipolar 1 disorder, depresse d, moderate F31.32 ; Panic disorder with agoraphobia F40.01 and Chronic post-traumatic stress disorder (PTSD) F43.12 [facility] [address] [facility] [id number] [address] [place] [address] Apr, Dental examination Z01.20 [facility] [address] [facility] [id number] [address] [place] [address] Mar, [facility] [address] [place] [id number] [address] [place] [address] Mar, [facility] [address] [id number] [address] [place] [address] Mar, Bipolar I disorder with depr ession F31.9 and Anxiety disorder, unspecified F41.9 [facility] [address] [id number] [address] [place] [address] 08 Mar, 2016 Panic disorder with agorapho syd F40.01 ; Bipolar 1 disorder, depressed, moderate F31.32 and Chronic post-traumatic stress disorder (PTSD) F43.12 [facility] [address] [id number] [address] [place] [address] Mar, [facility] [address] [id number] [address] [place] [address] Mar, Dental caries K02.9 [facility] [address] [id number] [address] [place] [address] 24 Feb, 2016 Lumbago with sciatica, left side M54.42 ; Lumbago with sciatica, right side M54.41 and Other chronic pain G89.29 [facility] [address] [id number] [address] [place] [address] Feb, [facility] [address] [id number] [address] [place] [address] Feb, [facility] [address] [id number] [address] [place] [address] 13 Feb, 2016 Bipolar I disorder with depr ession F31.9 ; PTSD (post-traumatic stress disorder) F43.10 and Mood disorder F39 [facility] [address] [id number] [address] [place] [address] Feb, [facility] [address] [id number] [address] [place] [address] 11 Feb, 2016 Dental examination Z01.20 [facility] [address] [id number] [address] [place] [address] 07 Feb, 2016 [facility] [address] [place] [id number] [address] [place] [address] Feb, Acute bronchitis, unspecifie d organism J20.9 [facility] [address] [place] [id number] [address] [place] [address] Jan, Mood disorder F39 ; Migraine without aura and without status migrainosus, not intractable G43.009 ; Irritable bowel syndrome, unspecified type K58.9 ; Diabetes E11.9 and Encounter for immunization Z23 [facility] [address] [address] Jan, [facility] [address] [address] Jan, [facility] [address] [address] Jan, [facility] [address] [address] Jan, [facility] [address] [address] Jan, [facility] [address] [address] Dec, Bipolar I disorder with depr ession F31.9 ; PTSD (post-traumatic stress disorder) F43.10 and Panic disorder with agoraphobia F40.01 [facility] [address] [address] Dec, Chronic obstructive pulmonar y disease, unspecified COPD type J44.9 ; Tremor R25.1 and Anxiety F41.9 [facility] [address] [address] Dec, [facility] [address] [address] Nov, Tremors of nervous system R2 5.1 and Cramping of feet R25.2 [facility] [address] [place] [address] Nov, [facility] [address] [facility] [id number] [address] [place] [address] Nov, [facility] [address] [facility] [id number] [address] [place] [address] Oct, Chronic obstructive pulmonar y disease, unspecified J44.9 [facility] [address] [facility] [id number] [address] [place] [address] Oct, [facility] [address] [facility] [id number] [address] [place] [address] Oct, Tremor R25.1 [facility] [address] [facility] [id number] [address] [place] [address] Oct, Bipolar I disorder with depr ession F31.9 ; Diabetes E11.9 ; PTSD (post-traumatic stress disorder) F43.10 and Panic disorder with agoraphobia F40.01 [facility] [address] [place] [id number] [address] [place] [address] Oct, Mood disorder F39 [facility] [address] [place] [id number] [address] [place] [address] September, [facility] [address] [facility] [id number] [address] [place] [address] September, Diabetes E11.9 ; Bipolar I d isorder with depression F31.9 ; PTSD (post-traumatic stress disorder) F43.10 and Panic disorder with agoraphobia F40.01 [facility] [address] [facility] [id number] [address] [place] [address] September, Mood disorder F39 ; Schizoaf fective disorder, unspecified type F25.9 ; Arthritis M19.90 ; Tremor R25.1 ; Acute non-recurrent frontal sinusitis J01.10 and Blood in stool K92.1 [facility] [address] [facility] [id number] [address] [place] [address] September, [facility] [address] [id number] [address] [place] [address] September, Chronic obstructive pulmonar y disease, unspecified J44.9 [facility] [address] [id number] [address] [place] [address] September, Diabetes E11.9 [facility] [address] [id number] [address] [place] [address] Aug, Other bipolar disorder F31.8 9 and Anxiety disorder, unspecified F41.9 [facility] [address] [id number] [address] [place] [address] Aug, [facility] [address] [id number] [address] [place] [address] Aug, Diabetes E11.9 [facility] [address] [facility] [id number] [address] [place] [address] 18 Aug, 2015 [facility] [address] [id number] [address] [place] [address] 14 Aug, 2015 Diabetes E11.9 ; Fatigue R53 .83 and Dizziness R42 [facility] [address] [id number] [address] [place] [address] Aug, Other bipolar disorder F31.8 9 [facility] [address] [id number] [address] [place] [address] Aug, Generalized anxiety disorder F41.1 [facility] [address] [id number] [address] [place] [address] 07 Aug, 2015 Other bipolar disorder F31.8 9 and Anxiety disorder, unspecified F41.9 [facility] [address] [id number] [address] [place] [address] Aug, [facility] [address] [id number] [address] [place] [address] Jul, [facility] [address] [id number] [address] [place] [address] Jul, [facility] [address] [facility] [id number] [address] [place] [address] Jul, Bronchitis J40 [facility] [address] [facility] [id number] [address] [place] [address] Jul, Anxiety disorder F41.9 [facility] [address] [place] [id number] [address] [place] [address] Jul, Other bipolar disorder F31.8 9 and Anxiety disorder, unspecified F41.9 [facility] [address] [facility] [id number] [address] [place] [address] Jul, Other bipolar disorder F31.8 9 and Fibromyalgia M79.7 [facility] [address] [facility] [id number] [address] [place] [address] Jul, [facility] [address] [place] [id number] [address] [place] [address] Jul, [facility] [address] [facility] [id number] [address] [place] [address] Jul, [facility] [address] [facility] [id number] [address] [place] [address] Jul, Other bipolar disorder F31.8 9 and Anxiety disorder, unspecified F41.9 [facility] [address] [place] [id number] [address] [place] [address] Jun, GERD (gastroesophageal reflu x disease) K21.9 [facility] [address] [facility] [id number] [address] [place] [address] Jun, [facility] [address] [facility] [id number] [address] [place] [address] May, [facility] [address] [place] [id number] [address] [place] [address] May, Diabetes E11.9 ; Back pain M 54.9 ; GERD (gastroesophageal reflux disease) K21.9 ; Hypertension I10 and Peripheral neuropathy G62.9 [facility] [address] [place] [id number] [place] [address] Mar, [facility] [address] [id number] [address] [place] [address] Mar, [facility] [address] [id number] [address] [place] [address] Mar, Acute sinusitis J01.90 and O titis media, left H66.92 [facility] [address] [id number] [address] [place] [address] Feb, [facility] [address] [id number] [address] [place] [address] Feb, [facility] [address] [id number] [address] [place] [address] Feb, [facility] [address] [id number] [address] [place] [address] Feb, [facility] [address] [id number] [address] [place] [address] Jan, [facility] [address] [id number] [address] [place] [address] Jan, Diabetes 250.00 and Back higinio n 724.5 [facility] [address] [id number] [address] [place] [address] Jan, [facility] [address] [id number] [address] [place] [address] Dec, Diabetes 250.00 ; Benign ess ential hypertension 401.1 and Allergic rhinitis 477.9 [facility] [address] [id number] [address] [place] [address] Dec, [facility] [address] [id number] [address] [place] [address] Dec, [facility] [address] [id number] [address] [place] [address] Dec, Psychosis 298.9 [facility] [address] [facility] [id number] [address] [place] [address] Dec, Medication side effect 995.2 0 and Generalized anxiety disorder 300.02 [facility] [address] [facility] [id number] [address] [place] [address] Dec, Acquired cognitive dysfuncti on 294.9 [facility] [address] [facility] [id number] [address] [place] [address] Dec, [facility] [address] [facility] [id number] [address] [place] [address] Dec, Unspecified myalgia and myos itis 729.1 and Generalized anxiety disorder 300.02 [facility] [address] [facility] [id number] [address] [place] [address] Nov, [facility] [address] [place] [id number] [address] [place] [address] Nov, [facility] [address] [facility] [id number] [address] [place] [address] Nov, [facility] [address] [facility] [id number] [address] [place] [address] Nov, Upper respiratory infection 465.9 and Chronic airway obstruction, not elsewhere classified 496 [facility] [address] [facility] [id number] [address] [place] [address] Nov, Hyponatremia 276.1 [facility] [address] [facility] [id number] [address] [place] [address] Oct, [facility] [address] [facility] [id number] [address] [place] [address] Oct, [facility] [address] [facility] [id number] [address] [place] [address] Oct, [facility] [address] [facility] [id number] [address] [place] [address] Oct, [facility] [address] [facility] [id number] [address] [place] [address] Oct, Hyponatremia 276.1 [facility] [address] [id number] [address] [place] [address] Oct, [facility] [address] [id number] [address] [place] [address] Oct, [facility] [address] [facility] [id number] [address] [place] [address] Oct, Generalized anxiety disorder 300.02 [facility] [address] [id number] [address] [place] [address] Oct, Generalized anxiety disorder 300.02 and Diabetes 250.00 [facility] [address] [id number] [address] [place] [address] Aug, [facility] [address] [facility] [id number] [address] [place] [address] Aug, [facility] [address] [id number] [address] [place] [address] Jul, [facility] [address] [id number] [address] [place] [address] Jul, [facility] [address] [id number] [address] [place] [address] Jun, [facility] [address] [facility] [id number] [address] [place] [address] Jun, [facility] [address] [id number] [address] [place] [address] Jun, [facility] [address] [id number] [address] [place] [address] Jun, [facility] [address] [id number] [address] [place] [address] Jun, [facility] [address] [id number] [address] [place] [address] May, [facility] [address] [id number] [address] [place] [address] May, [facility] [address] [id number] [address] [place] [address], [place] [address] Apr, [facility] [address] [id number] [address] [place] [address], [place] [address] Apr, [facility] [address] [id number] [address] [place] [address], [place] [address] Apr, [facility] [address] [id number] [address] [place] [address], [place] [address] Apr, [facility] [address] [id number] [address] [place] [address], [place] [address] Apr, [facility] [address] [id number] [address] [place] [address], [place] [address] Apr, [facility] [address] [id number] [address] [place] [address], [place] [address] Apr, [facility] [address] [id number] [address] [place] [address], [place] [address] Apr, [facility] [address] [id number] [address] [place] [address], [place] [address] Feb, [facility] [address] [id number] [address] [place] [address], [place] [address] Feb, [facility] [address] [id number] [address] [place] [address], [place] [address] Jan, [facility] [address] [id number] [address] [place] [address], [place] [address] Jan, [facility] [address] [id number] [address] [place] [address], [place] [address] Dec, [facility] [address] [id number] [address] [place] [address], [place] [address] Dec, [facility] [address] [id number] [address] [place] [address], [place] [address] Dec, [facility] [address] [id number] [address] [place] [address], [place] [address] Nov, [facility] [address] [id number] [address] [place] [address], [place] [address] Nov, [facility] [address] [id number] [address] [place] [address], [place] [address] Nov, [facility] [address] [id number] [address] [place] [address], [place] [address] Oct, [facility] [address] [id number] [address] [place] [address], [place] [address] Oct, [facility] [address] [id number] [address] [place] [address], [place] [address] Oct, [facility] [address] [id number] [address] [place] [address], [place] [address] September, [facility] [address] [id number] [address] [place] [address], [place] [address] September, [facility] [address] [id number] [address] [place] [address], [place] [address] September, [facility] [address] [id number] [address] [place] [address], [place] [address] Aug, [facility] [address] [id number] [address] [place] [address], [place] [address] Aug, [facility] [address] [id number] [address] [place] [address], [place] [address] Aug, [facility] [address] [id number] [address] [place] [address], [place] [address] 16 Aug, 2011 [facility] [address] [id number] [address] [place] [address], [place] [address] Jul, [facility] [address] [id number] [address] [place] [address], [place] [address] Jun, [facility] [address] [id number] [address] [place] [address], [place] [address] 14 Jun, 2011 [facility] [address] [id number] [address] [place] [address], [place] [address] 13 Jun, 2011 [facility] [address] [id number] [address] [place] [address], [place] [address] 07 Jun, 2011 [facility] [address] [id number] [address] [place] [address], [place] [address] 03 Jun, 2011 [facility] [address] [id number] [address] [place] [address], [place] [address] 13 May, 2011 [facility] [address] [id number] [address] [place] [address], [place] [address] May, [facility] [address] [id number] [address] [place] [address], [place] [address] May, [facility] [address] [id number] [address] [place] [address], [place] [address] May, [facility] [address] [id number] [address] [place] [address], [place] [address] Apr, [facility] [address] [id number] [address] [place] [address], [place] [address] Apr, [facility] [address] [id number] [address] [place] [address], [place] [address] Apr, [facility] [address] [id number] [address] [place] [address], [place] [address] Mar, [facility] [address] [id number] [address] [place] [id number] Mar, [facility] [address] [id number] [address] [place] [address], [place] [address] Mar, [facility] [address] [id number] [address] [place] [address], [place] [address] 13 Feb, 2011 [facility] [address] [id number] [address] [place] [address], [place] [address] 13 Feb, 2011 [facility] [address] [id number] [address] [place] [id number] 13 Feb, 2011 [facility] [address] [id number] [address] [place] [id number] 11 Nov, 2010 [facility] [address] [id number] [address] [place] [id number] 16 Sep, 2010 [facility] [address] [id number] [address] [place] [id number] Aug, [facility] [address] [id number] [address] [place] [id number] 14 Jul, 2010 [facility] [address] [id number] [address] [place] [id number] May, [facility] [address] [id number] [address] [place] [id number] Apr, [facility] [address] [id number] [address] [place] [id number] Apr, [facility] [address] [id number] [address] [place] [id number] Apr, [facility] [address] [id number] [address] [place] [id number] Apr, [facility] [address] [id number] [address] [place] [phone] Apr, IMMUNIZATIONS No Known Immunizations SOCIAL HISTORY Never Assessed REASON FOR VISIT Controlled Med Refill 03/29/18 PLAN OF CARE VITAL SIGNS MEDICATIONS Unknown [...]
--- OUTSIDE RECORDS SUMMARY | 2019-07-17 10:49 | XMS REPORT ---
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 Name Role Phone WHIT GANDHI Unavailable PROBLEMS Type Condition ICD9-CM Code [id number] Code Onset Dates Condition S tatus SNOMED Code Problem Diabetes E11.9 Active 25734476 Problem GERD (gastroesophageal reflux disease) K21.9 Active 309689156 Problem Anxiety disorder, unspecified F41.9 Active 422283819 Problem Hypertension I10 Active 6116183 3 Problem Other bipolar disorder F31.89 Active 12805235 Problem Fibromyalgia M79.7 Active 1811099 7 Problem Panic disorder with agoraphobia F40.01 Active 11520077 Problem Chronic obstructive pulmonary disease, unspecified J44.9 Active 46133458 Problem Lumbago with sciatica, left side M54.42 Active 508280699 Problem Migraine without aura and without status migrain osus, not intractable G43.009 Active 911776613 Problem Lumbago with sciatica, right side M54.41 Active 916120511 Problem Fibrocystic disease of right breast N60.11 Active 72626517 Problem Other chronic pain G89.29 Active 8 6839893 Problem Fibrocystic disease of left breast N60.12 Active 90968287 Problem Irritable bowel syndrome with constipation K58.1 Active 868606544 Problem Arthritis M19.90 Active 2448925 Problem Abnormal mammogram of right breast R92.8 Active 754558459 Problem Daytime somnolence R40.0 Active 1 09479408951 Problem Bipolar affective disorder, remission status unspecified F31.9 Active 84150282 Problem Chronic post-traumatic stress disorder (PTSD) F43. 12 Active 789154128 Problem Bipolar 1 disorder, depressed, moderate F31.32 Active 31999749 Problem Schizoaffective disorder, bipolar type F25.0 Active 88301975 Problem Irritable bowel syndrome with both constipation and diarrh ea K58.2 Active 60695097 Problem Slow transit constipation K59.01 Acti ve 17989430 Problem Essential tremor G25.0 Active 609 455304 Problem Acute non-recurrent maxillary sinusitis J01.00 Active 69056803 Problem Back pain M54.9 Active 316232913 Problem Bipolar 1 disorder, depressed, partial remission F 31.75 Active 56355302 Problem Attention deficit hyperactiv ity disorder (ADHD), predominantly inattentive type F90.0 Active 88591508 Problem Bipolar I disorder with depression F31.9 Active 77001307 Problem Panlobular emphysema J43.1 Active 2839622 Problem Akathisia G25.71 Active 770446207 Problem Mild persistent asthma without complication J45.30 Active 846539051 Problem Moderate persistent asthma without complication J4 5.40 Active 928326394 ALLERGIES No Information ENCOUNTERS Encounter Location Date Diagnosis [facility] [address] [facility] [id number] [address] [place] [id number] Mar, [facility] [address] [facility] [id number] [address] [place] [phone] Mar, [facility] [address] [facility] [id number] [address] [place] [phone] Mar, [facility] [address] [place] [id number] [address] [place] [id number] Mar, Diabetes E11.9 [facility] [address] [facility] [id number] [address] [place] [phone] Mar, [facility] [address] [facility] [id number] [address] [place] [phone] Feb, Daytime somnolence R40.0 and Anxiety disorder, unspecified F41.9 [facility] [address] [facility] [id number] [address] [place] [phone] Feb, [facility] [address] [facility] [id number] [address] [place] [id number] Feb, [facility] [address] [facility] [id number] [address] [place] [id number] Feb, Tremors of nervous system R2 5.1 and Acute swimmer''s ear of right side H60.331 [facility] [address] [facility] [id number] [address] [place] [id number] Feb, Cerebrovascular accident (CV A) due to occlusion of right cerebellar artery I63.541 and Hypertension I10 [facility] [address] [facility] [id number] [address] [place] [phone] Feb, [facility] [address] [facility] [id number] [address] [place] [id number] Feb, Cerebrovascular accident (CV A) due to occlusion of right cerebellar artery I63.[address] [place] [id number] [place] [id number] Feb, Hyponatremia E87.1 [facility] [address] [facility] [id number] [address] [place] [phone] Feb, [facility] [address] [facility] [id number] [address] [place] [id number] Feb, Daytime somnolence R40.0 [facility] [address] [facility] [id number] [address] [place] [phone] Feb, [facility] [address] [facility] [id number] [address] [place] [phone] Jan, [facility] [address] [facility] [id number] [address] [place] [phone] Jan, [facility] [address] [facility] [id number] [address] [place] [phone] Jan, Chronic obstructive pulmonar y disease, unspecified J44.9 and Anxiety disorder, unspecified F41.9 [facility] [address] [facility] [id number] [address] [place] [phone] Jan, Hypertension I10 ; Fibromyal medhat M79.7 and Lumbago with sciatica, left side M54.42 [facility] [address] [facility] [id number] [address] [place] [phone] Jan, [facility] [address] [id number] [address] [place] [id number] 20 Jan, 2018 Cerebrovascular accident (CV A) due to occlusion of right cerebellar artery I63.541 [facility] [address] [id number] [address] [place] [id number] 19 Jan, 2018 [facility] [address] [id number] [address] [place] [id number] 13 Jan, 2018 Arthritis M19.90 [facility] [address] [facility] [id number] [address] [place] [id number] 07 Jan, 2018 [place] [address] [facility] [address] [facility] [id number] [address] [place] [phone] 04 Jan, 2018 Abnormal mammogram of right breast R92.8 [place] [address] [facility] [facility] [id number] [address] [place] [phone] Dec, Daytime somnolence R40.0 and Right otitis media with effusion H65.91 [place] [address] [facility] [address] [facility] [id number] [address] [place] [phone] Dec, [place] [address] [facility] [address] [facility] [id number] [address] [place] [id number] Dec, Cerebrovascular accident (CV A) due to occlusion of right cerebellar artery I63.541 [place] [id number] [facility] [facility] [id number] [address] [place] [id number] Dec, [place] [address] [facility] [facility] [id number] [address] [place] [phone] Dec, [place] [address] [facility] [address] [facility] [id number] [address] [place] [phone] Nov, Bipolar 1 disorder, depresse d, partial remission F31.75 and Panic disorder with agoraphobia F40.01 [place] [address] [facility] [facility] [id number] [address] [place] [phone] Nov, Panlobular emphysema J43.1 [place] [address] [id number] [address] [place] [id number] Nov, Cerebrovascular accident (CV A) due to occlusion of right cerebellar artery I63.541 and Acute non-recurrent maxillary sinusitis J01.00 [facility] [address] [id number] [address] [place] [id number] Nov, Panlobular emphysema J43.1 [facility] [address] [id number] [address] [place] [id number] Nov, [facility] [address] [id number] [address] [place] [phone] Nov, [facility] [address] [id number] [address] [place] [phone] Nov, [facility] [address] [id number] [address] [place] [id number] Nov, [facility] [address] [id number] [address] [place] [phone] Nov, [facility] [address] [id number] [address] [place] [phone] Nov, [facility] [address] [id number] [address] [place] [id number] Nov, [facility] [address] [id number] [address] [place] [phone] Nov, Mild persistent asthma witho ut complication J45.30 and Irritable bowel syndrome with both constipation and diarrhea K58.2 [facility] [address] [id number] [address] [place] [phone] Nov, [facility] [address] [id number] [address] [place] [phone] Oct, [facility] [address] [id number] [address] [place] [phone] Oct, [facility] [address] [id number] [address] [place] [id number] Oct, Type 2 diabetes mellitus wit h diabetic neuropathy, unspecified whether halfway insulin use E11.40 ; Diabetes E11.9 ; Slow transit constipation K59.01 ; Edema of both legs R60.0 and Dysfunction of right eustachian tube H69.81 [facility] [address] [id number] [address] [place] [id number] Oct, Frequent headaches R51 [facility] [address] [id number] [address] [place] [phone] Oct, [facility] [address] [id number] [address] [place] [phone] Oct, [facility] [address] [id number] [address] [place] [id number] Oct, [facility] [address] [id number] [address] [place] [id number] Oct, [facility] [address] [facility] [id number] [address] [place] [id number] Oct, [facility] [address] [id number] [address] [place] [phone] Oct, [facility] [address] [id number] [address] [place] [id number] Oct, [facility] [address] [facility] [id number] [address] [place] [phone] Oct, [facility] [address] [id number] [address] [place] [id number] September, Frequent headaches R51 [facility] [address] [id number] [address] [place] [phone] September, Bilateral otitis media with effusion H65.93 ; Dizziness R42 and Essential tremor G25.0 [facility] [address] [id number] [address] [place] [id number] September, Chronic obstructive pulmonar y disease, unspecified COPD type J44.9 [facility] [address] [facility] [id number] [address] [place] [phone] September, Chronic obstructive pulmonar y disease, unspecified COPD type J44.9 [facility] [address] [place] [id number] [address] [place] [id number] September, Migraine without aura and wi thout status migrainosus, not intractable G43.009 [place] [address] [place] [id number] [address] [place] [phone] September, [facility] [address] [place] [id number] [address] [place] [id number] September, [facility] [address] [place] [id number] [address] [place] [id number] September, [facility] [address] [place] [id number] [place] [phone] September, Frequent headaches R51 [place] [address] [place] [id number] [address] [place] [id number] Aug, [facility] [address] [place] [id number] [address] [place] [id number] Aug, Breast mass, right N63.10 [place] [address] [place] [id number] [address] [place] [id number] Aug, Breast lump N63.0 [place] [address] [place] [id number] [place] [address] Aug, [place] [address] [id number] Aug, Bipolar affective disorder, remission status unspecified F31.9 and Diabetes E11.9 [place] [address] [place] [id number] [place] [phone] Aug, Diabetes E11.9 ; Schizoaffec tive disorder, bipolar type F25.0 ; Pharyngitis due to other organism J02.8 ; Panlobular emphysema J43.1 and Irritable bowel syndrome with both constipation and diarrhea K58.2 [place] [address] [id number] [address] [place] [id number] Aug, Abnormal mammogram R92.8 [facility] [address] [id number] [address] [place] [id number] Aug, [facility] [address] [id number] [address] [place] [id number] Aug, Bipolar 1 disorder, depresse d, moderate F31.32 ; Panic disorder with agoraphobia F40.01 and Chronic post-traumatic stress disorder (PTSD) F43.12 [facility] [address] [id number] [address] [place] [phone] Aug, [facility] [address] [id number] [address] [place] [id number] Aug, [facility] [address] [id number] [address] [place] [id number] Aug, [facility] [address] [id number] [address] [place] [id number] Jul, [facility] [address] [id number] [address] [place] [id number] Jul, Mild persistent asthma witho ut complication J45.30 [facility] [address] [id number] [address] [place] [id number] Jul, Mild persistent asthma witho ut complication J45.30 [facility] [address] [id number] [address] [place] [id number] Jul, Bipolar affective disorder, remission status unspecified F31.9 ; Diabetes E11.9 and Irritable bowel syndrome with constipation K58.1 [facility] [address] [id number] [address] [place] [id number] Jul, [facility] [address] [id number] [address] [place] [phone] Jul, [facility] [address] [facility] [id number] [address] [place] [phone] Jul, Frequent headaches R51 [facility] [address] [facility] [id number] [address] [place] [id number] Jul, [facility] [address] [facility] [id number] [phone] Jul, [facility] [address] [address] Jul, [place] [address] [address] Jul, Frequent headaches R51 ; Fib rocystic disease of left breast N60.12 ; Fibrocystic disease of right breast N60.11 and Diabetes E11.9 [place] [address] [id number] Jul, [place] [address] [address] Jul, [place] [address] [id number] Jun, Exudative tonsillitis J03.90 [place] [address] [id number] 20 Jun, 2017 [place] [address] [id number] 19 Jun, 2017 [place] [address] [id number] 15 Jun, 2017 Mild persistent asthma witho ut complication J45.30 ; Chronic obstructive pulmonary disease, unspecified COPD type J44.9 and Exudative tonsillitis J03.90 [place] [address] [address] 13 Jun, 2017 Encounter for immunization Z 23 [place] [address] [address] 12 Jun, 2017 [place] [address] [id number] 12 Jun, 2017 [facility] [address] [facility] [id number] [address] [place] [phone] Jun, [facility] [address] [facility] [id number] [address] [place] [id number] 06 Jun, 2017 Tonsillitis J03.90 [facility] [address] [facility] [id number] [address] [place] [id number] 05 Jun, 2017 [facility] [address] [facility] [id number] [address] [place] [id number] Jun, Acute non-recurrent maxillar y sinusitis J01.00 [facility] [address] [facility] [id number] [address] [place] [id number] 02 Jun, 2017 [facility] [address] [facility] [id number] [address] [place] [id number] May, [facility] [address] [facility] [id number] [address] [place] [phone] May, [facility] [address] [facility] [id number] [address] [place] [id number] May, GERD (gastroesophageal reflu x disease) K21.9 [facility] [address] [facility] [id number] [address] [place] [id number] May, Migraine without aura and wi thout status migrainosus, not intractable G43.009 [facility] [address] [facility] [id number] [address] [place] [id number] May, [facility] [address] [facility] [id number] [address] [place] [phone] May, [facility] [address] [id number] May, Panlobular emphysema J43.1 a nd Acute non-recurrent maxillary sinusitis J01.00 [facility] [address] [facility] [id number] [address] [place] [id number] May, Bipolar 1 disorder, depresse d, moderate F31.32 ; Panic disorder with agoraphobia F40.01 and Akathisia G25.71 [place] [address] [place] [id number] [address] [place] [id number] Apr, [place] [address] [address] Apr, [place] [address] [address] Apr, Acute non-recurrent maxillar y sinusitis J01.00 [place] [address] [id number] 07 Apr, 2017 Panlobular emphysema J43.1 [place] [address] [id number] Apr, [facility] [place] [address] [address] Apr, Exudative tonsillitis J03.90 and Sore throat J02.9 [place] [address] [address] Mar, [place] [address] [address] 15 Mar, 2017 Acute non-recurrent maxillar y sinusitis J01.00 [place] [address] [place] [id number] [address] [place] [id number] Mar, [place] [address] [address] Mar, Panlobular emphysema J43.1 a nd Diabetes E11.9 [place] [address] [place] [id number] [address] [place] [id number] 06 Mar, 2017 [facility] [address] [id number] Feb, Wheezing R06.2 and Acute rec urrent pansinusitis J01.41 [facility] [address] [id number] [address] [place] [id number] Feb, [facility] [address] [facility] [id number] [address] [place] [id number] 16 Feb, 2017 Acute non-recurrent maxillar y sinusitis J01.00 [facility] [address] [facility] [id number] [address] [place] [id number] 16 Feb, 2017 Chronic obstructive pulmonar y disease, unspecified J44.9 [facility] [address] [facility] [id number] [address] [place] [id number] Feb, Hypoxemia R09.02 and Chronic obstructive pulmonary disease, unspecified J44.9 [facility] [address] [facility] [id number] [address] [place] [id number] 28 Jan, 2017 Bipolar 1 disorder, depresse d, moderate F31.32 ; Panic disorder with agoraphobia F40.01 ; Chronic post-traumatic stress disorder (PTSD) F43.12 ; Diabetes E11.9 and Moderate persistent asthma without complication J45.40 [facility] [address] [facility] [id number] [address] [place] [id number] 22 Jan, 2017 [facility] [address] [facility] [id number] [address] [place] [id number] 19 Jan, 2017 Acute non-recurrent maxillar y sinusitis J01.00 [facility] [address] [facility] [id number] [address] [place] [id number] 18 Jan, 2017 [facility] [address] [facility] [id number] [address] [place] [phone] 18 Jan, 2017 [facility] [address] [address] [facility] [id number] [address] [place] [phone] 12 Jan, 2017 Moderate persistent asthma w the [facility] complication J45.40 and Hypoxemia R09.02 [facility] [address] [facility] [id number] [address] [place] [phone] Jan, Moderate persistent asthma w the [facility] complication J45.40 and Hypoxemia R09.02 [facility] [address] [id number] [address] [place] [phone] Jan, [facility] [address] [facility] [id number] [address] [place] [id number] Dec, Acute non-recurrent maxillar y sinusitis J01.00 [facility] [address] [address] [facility] [id number] [address] [place] [phone] Dec, Chronic obstructive pulmonar y disease, unspecified J44.9 [facility] [address] [id number] [address] [place] [id number] Dec, [place] [address] FORMER[facility]AM[address] [facility] [id number] [address] [place] [address] [id number] Dec, Mild persistent asthma [facility] complication J45.30 and Other chronic pain G89.29 [place] [address] [id number] [address] [place] [id number] Nov, [place] [address] [id number] [address] [place] [id number] Nov, Acute non-recurrent maxillar y sinusitis J01.00 [facility] [address] [facility] [id number] [address] [place] [id number] Nov, [place] [id number] [facility] [facility] [id number] [address] [place] [id number] Nov, [place] [address] [facility] [address] [facility] [id number] [address] [place] [id number] Oct, [facility] [address] [facility] [id number] [address] [place] [id number] Oct, Bipolar 1 disorder, depresse d, partial remission F31.75 ; Panic disorder with agoraphobia F40.01 and Chronic post-traumatic stress disorder (PTSD) F43.12 [facility] [address] [facility] [id number] [address] [place] [id number] Oct, Acute non-recurrent maxillar y sinusitis J01.00 [facility] [address] [id number] [address] [place] [id number] Oct, [facility] [address] [id number] [address] [place] [id number] Oct, Diabetes E11.9 [facility] [address] [id number] [address] [place] [id number] September, Diabetes E11.9 [facility] [address] [id number] [address] [place] [id number] September, Diabetes E11.9 and Sinus tac hycardia R00.0 [facility] [address] [id number] [address] [place] [id number] September, [facility] [address] [facility] [address] [facility] [id number] [address] [place] [id number] September, [facility] [address] [facility] [address] [facility] [id number] [address] [place] [id number] Aug, Diabetes E11.9 and Lumbago w ith sciatica, right side M54.41 [facility] [address] [facility] [id number] [address] [place] [id number] Aug, [facility] [address] [facility] [id number] [address] [place] [id number] Jul, Bipolar 1 disorder, depresse d, moderate F31.32 ; Panic disorder with agoraphobia F40.01 and Chronic post-traumatic stress disorder (PTSD) F43.12 [facility] [address] [facility] [id number] [address] [place] [id number] Jul, Sore throat J02.9 [facility] [address] [facility] [id number] [address] [place] [id number] Jul, [facility] [address] [facility] [id number] [address] [place] [id number] Jul, [facility] [address] [facility] [id number] [address] [place] [id number] Jul, [facility] [address] [facility] [id number] [address] [place] [id number] Jul, [facility] [address] [place] [id number] [address] [place] [id number] Jul, Sore throat J02.9 and Pharyn gitis, unspecified etiology J02.9 [facility] [address] [facility] [id number] [address] [place] [id number] Jun, [facility] [address] [facility] [id number] [address] [place] [phone] Jun, Diabetes E11.9 [facility] [address] [facility] [id number] [address] [place] [phone] Jun, [facility] [address] [id number] Jun, [facility] [address] [place] [id number] [address] [place] [id number] Jun, [facility] [address] [place] [id number] [address] [place] [id number] Jun, [facility] [address] [facility] [id number] [address] [place] [id number] Jun, [facility] [address] [place] [id number] [address] [place] [id number] 15 Jun, 2016 [facility] [address] [facility] [id number] [address] [place] [id number] Jun, [facility] [address] [place] [id number] [address] [place] [id number] Jun, [facility] [address] [facility] [id number] [address] [place] [id number] May, Diabetes E11.9 ; Other chron ic pain G89.29 ; Acute recurrent maxillary sinusitis J01.01 ; Bipolar I disorder with depression F31.9 and Anxiety disorder, unspecified F41.9 [place] [address] [facility] [id number] [address] [place] [id number] May, [place] [address] [id number] [address] [place] [id number] May, Diabetes E11.9 ; Bipolar I d isorder with depression F31.9 ; Anxiety disorder, unspecified F41.9 ; Other chronic pain G89.29 and Acute recurrent maxillary sinusitis J01.01 [place] [address] [id number] [address] [place] [id number] May, [place] [address] [facility] [address] [facility] [id number] [address] [place] [id number] May, Attention deficit hyperactiv ity disorder (ADHD), predominantly inattentive type F90.[address] [id number] [address] [place] [id number] May, [place] [address] [facility] [address] [facility] [id number] [address] [place] [id number] Apr, Attention deficit hyperactiv ity disorder (ADHD), predominantly inattentive type F90.0 and Non-seasonal allergic rhinitis due to other allergic trigger J30.89 [place] [address] [address] [facility] [id number] [address] [place] [id number] Apr, Bipolar 1 disorder, depresse d, moderate F31.32 ; Panic disorder with agoraphobia F40.01 and Chronic post-traumatic stress disorder (PTSD) F43.12 [place] [address] [facility] [id number] [address] [place] [id number] Apr, Dental examination Z01.20 [place] [address] [facility] [address] [facility] [id number] [address] [place] [id number] Mar, [place] [address] [facility] [facility] [id number] [address] [place] [phone] Mar, [place] [address] [facility] [address] [facility] [id number] [address] [place] [id number] Mar, Bipolar I disorder with depr ession F31.9 and Anxiety disorder, unspecified F41.9 [place] [address] [id number] [address] [place] [id number] 08 Mar, 2016 Panic disorder with agorapho syd F40.01 ; Bipolar 1 disorder, depressed, moderate F31.32 and Chronic post-traumatic stress disorder (PTSD) F43.12 [place] [address] [id number] [address] [place] [id number] Mar, [place] [address] [id number] [address] [place] [id number] Mar, Dental caries K02.9 [place] [address] [address] [facility] [id number] [address] [place] [id number] 24 Feb, 2016 Lumbago with sciatica, left side M54.42 ; Lumbago with sciatica, right side M54.41 and Other chronic pain G89.29 [place] [address] [facility] [id number] [address] [place] [id number] Feb, [place] [address] [id number] [address] [place] [id number] 14 Feb, 2016 [place] [address] [place] [id number] [address] [place] [id number] Feb, Bipolar I disorder with depr ession F31.9 ; PTSD (post-traumatic stress disorder) F43.10 and Mood disorder F39 [place] [address] [facility] [id number] [address] [place] [id number] Feb, [facility] [address] [id number] [address] [place] [id number] 11 Feb, 2016 Dental examination Z01.20 [facility] [address] [address] [facility] [id number] [address] [place] [id number] 07 Feb, 2016 [facility] [address] [facility] [id number] [address] [place] [id number] 03 Feb, 2016 Acute bronchitis, unspecifie d organism J20.9 [facility] [address] [facility] [id number] [address] [place] [id number] Jan, Mood disorder F39 ; Migraine without aura and without status migrainosus, not intractable G43.009 ; Irritable bowel syndrome, unspecified type K58.9 ; Diabetes E11.9 and Encounter for immunization Z23 [place] [id number] [facility] [facility] [id number] [address] [place] [id number] Jan, [facility] [address] [facility] [id number] [address] [place] [phone] Jan, [place] [address] [place] [id number] [place] [phone] Jan, [place] [address] [place] [id number] [address] [place] [id number] Jan, [place] [address] [place] [id number] [address] [place] [id number] Jan, [place] [address] [place] [id number] [address] [place] [id number] Dec, Bipolar I disorder with depr ession F31.9 ; PTSD (post-traumatic stress disorder) F43.10 and Panic disorder with agoraphobia F40.01 [place] [address] [place] [id number] [address] [place] [id number] Dec, Chronic obstructive pulmonar y disease, unspecified COPD type J44.9 ; Tremor R25.1 and Anxiety F41.9 [place] [id number] [facility] [facility] [id number] [address] [place] [id number] Dec, [place] [address] [place] [id number] [place] [phone] Nov, Tremors of nervous system R2 5.1 and Cramping of feet R25.2 [place] [address] [place] [id number] [address] [place] [id number] Nov, [place] [address] [place] [id number] [address] [place] [id number] Nov, [facility] [address] [facility] [id number] [address] [place] [id number] Oct, Chronic obstructive pulmonar y disease, unspecified J44.9 [facility] [address] [facility] [id number] [address] [place] [id number] Oct, [place] [address] [place] [id number] [address] [place] [id number] Oct, Tremor R25.1 [place] [address] [place] [id number] [address] [place] [id number] Oct, Bipolar I disorder with depr ession F31.9 ; Diabetes E11.9 ; PTSD (post-traumatic stress disorder) F43.10 and Panic disorder with agoraphobia F40.01 [place] [address] [place] [id number] [address] [place] [id number] Oct, Mood disorder F39 [place] [address] [place] [id number] [address] [place] [id number] September, [place] [address] [place] [id number] [place] [phone] September, Diabetes E11.9 ; Bipolar I d isorder with depression F31.9 ; PTSD (post-traumatic stress disorder) F43.10 and Panic disorder with agoraphobia F40.01 [place] [address] [facility] [address] [facility] [id number] [address] [place] [id number] September, Mood disorder F39 ; Schizoaf fective disorder, unspecified type F25.9 ; Arthritis M19.90 ; Tremor R25.1 ; Acute non-recurrent frontal sinusitis J01.10 and Blood in stool K92.1 [facility] [address] [facility] [id number] [address] [place] [phone] September, [place] [address] [place] [id number] [address] [place] [id number] 17 May, 2016 Chronic obstructive pulmonar y disease, unspecified J44.9 [facility] [address] [id number] [address] [place] [id number] September, Diabetes E11.9 [facility] [address] [id number] [address] [place] [phone] Aug, Other bipolar disorder F31.8 9 and Anxiety disorder, unspecified F41.9 [facility] [address] [id number] [address] [place] [phone] Aug, [facility] [address] [id number] [address] [place] [phone] Aug, Diabetes E11.9 [facility] [address] [id number] [address] [place] [id number] 18 Aug, 2015 [facility] [address] [id number] [address] [place] [id number] 14 Aug, 2015 Diabetes E11.9 ; Fatigue R53 .83 and Dizziness R42 [facility] [address] [id number] [address] [place] [id number] 13 Aug, 2015 Other bipolar disorder F31.8 9 [facility] [address] [id number] [address] [place] [phone] 07 Aug, 2015 Generalized anxiety disorder F41.1 [facility] [address] [id number] [address] [place] [id number] Aug, Other bipolar disorder F31.8 9 and Anxiety disorder, unspecified F41.9 [facility] [address] [id number] [address] [place] [id number] Aug, [facility] [address] [id number] [address] [place] [id number] Jul, [facility] [address] [id number] [address] [place] [id number] Jul, [facility] [address] [id number] [address] [place] [phone] Jul, Bronchitis J40 [facility] [address] [facility] [id number] [address] [place] [phone] Jul, Anxiety disorder F41.9 [facility] [address] [facility] [id number] [address] [place] [phone] Jul, Other bipolar disorder F31.8 9 and Anxiety disorder, unspecified F41.9 [facility] [address] [facility] [id number] [address] [place] [id number] Jul, Other bipolar disorder F31.8 9 and Fibromyalgia M79.7 [facility] [address] [facility] [id number] [address] [place] [phone] Jul, [facility] [address] [facility] [id number] [address] [place] [phone] Jul, [facility] [address] [facility] [id number] [address] [place] [id number] Jul, [facility] [address] [facility] [id number] [address] [place] [id number] Jul, Other bipolar disorder F31.8 9 and Anxiety disorder, unspecified F41.9 [facility] [address] [facility] [id number] [address] [place] [id number] Jun, GERD (gastroesophageal reflu x disease) K21.9 [facility] [address] [facility] [id number] [address] [place] [id number] Jun, [facility] [address] [facility] [id number] [address] [place] [id number] May, [facility] [address] [facility] [id number] [address] [place] [phone] May, Diabetes E11.9 ; Back pain M 54.9 ; GERD (gastroesophageal reflux disease) K21.9 ; Hypertension I10 and Peripheral neuropathy G62.9 [facility] [address] [facility] [id number] [address] [place] [id number] Mar, [facility] [address] [place] [id number] [address] [place] [id number] Mar, [facility] [address] [id number] [address] [place] [id number] Mar, Acute sinusitis J01.90 and O titis media, left H66.92 [facility] [address] [facility] [id number] [address] [place] [id number] Feb, [facility] [address] [id number] [address] [place] [id number] Feb, [facility] [address] [id number] [address] [place] [id number] Feb, [facility] [address] [facility] [id number] [address] [place] [id number] Feb, [facility] [address] [facility] [id number] [address] [place] [id number] Jan, [facility] [address] [facility] [id number] [address] [place] [id number] Jan, Diabetes 250.00 and Back higinio n 724.5 [facility] [address] [facility] [id number] [address] [place] [id number] Jan, [facility] [address] [facility] [id number] [address] [place] [id number] Dec, Diabetes 250.00 ; Benign ess ential hypertension 401.1 and Allergic rhinitis 477.9 [facility] [address] [facility] [id number] [address] [place] [id number] Dec, [facility] [address] [facility] [id number] [address] [place] [id number] Dec, [facility] [address] [facility] [id number] [address] [place] [id number] Dec, Psychosis 298.9 [facility] [address] [facility] [id number] [address] [place] [id number] Dec, Medication side effect 995.2 0 and Generalized anxiety disorder 300.02 [facility] [address] [facility] [id number] [address] [place] [id number] Dec, Acquired cognitive dysfuncti on 294.9 [facility] [address] [facility] [id number] [address] [place] [id number] Dec, [facility] [address] [facility] [id number] [address] [place] [phone] Dec, Unspecified myalgia and myos itis 729.1 and Generalized anxiety disorder 300.02 [facility] [address] [facility] [id number] [address] [place] [id number] Nov, [facility] [address] [facility] [id number] [address] [place] [id number] Nov, [facility] [address] [place] [id number] [address] [place] [id number] Nov, [facility] [address] [facility] [id number] [address] [place] [id number] Nov, Upper respiratory infection 465.9 and Chronic airway obstruction, not elsewhere classified 496 [facility] [address] [facility] [id number] [address] [place] [id number] Nov, Hyponatremia 276.1 [facility] [address] [facility] [id number] [address] [place] [id number] Oct, [facility] [address] [facility] [id number] [address] [place] [phone] Oct, [facility] [address] [facility] [id number] [address] [place] [id number] Oct, [facility] [address] [facility] [id number] [address] [place] [id number] Oct, [facility] [address] [facility] [id number] [address] [place] [phone] Oct, Hyponatremia 276.1 [facility] [address] [place] [id number] [address] [place] [phone] Oct, [facility] [address] [id number] [address] [place] [id number] Oct, [facility] [address] [id number] [address] [place] [phone] Oct, Generalized anxiety disorder 300.02 [facility] [address] [id number] [address] [place] [phone] Oct, Generalized anxiety disorder 300.02 and Diabetes 250.00 [facility] [address] [id number] [address] [place] [id number] Aug, [facility] [address] [id number] [address] [place] [phone] Aug, [facility] [address] [facility] [facility] [id number] [address] [place] [phone] Jul, [facility] [address] [id number] [address] [place] [id number] Jul, [facility] [address] [id number] [address] [place] [phone] Jun, [facility] [address] [id number] [address] [place] [id number] Jun, [facility] [address] [id number] [address] [place] [phone] Jun, [facility] [address] [id number] [address] [place] [id number] Jun, [facility] [address] [id number] [address] [place] [id number] Jun, [facility] [address] [id number] [address] [place] [id number] May, [facility] [address] [id number] [address] [place] [phone] May, [facility] [address] [id number] [address] [place] [address] [id number] Apr, [facility] [address] [id number] [address] [place] [address], [place] [address] Apr, [facility] [address] [id number] [address] [place] [address], [place] [address] Apr, [facility] [address] [id number] [address] [place] [address], [place] [address] Apr, [facility] [address] [id number] [address] [place] [address], [place] [address] Apr, [facility] [address] [id number] [address] [place] [address], [place] [address] Apr, [facility] [address] [id number] [address] [place] [address], [place] [address] Apr, [facility] [address] [id number] [address] [place] [address], [place] [address] Apr, [facility] [address] [id number] [address] [place] [address], [place] [address] Feb, [facility] [address] [id number] [address] [place] [address], [place] [address] Feb, [facility] [address] [id number] [address] [place] [address], [place] [address] Jan, [facility] [address] [id number] [address] [place] [address], [place] [address] Jan, [facility] [address] [id number] [address] [place] [phone] Dec, [facility] [address] [id number] [address] [place] [address], [place] [address] Dec, [facility] [address] [id number] [address] [place] [address], [place] [address] Dec, [facility] [address] [id number] [address] [place] [address], [place] [address] Nov, [facility] [address] [id number] [address] [place] [address], [place] [address] Nov, [facility] [address] [id number] [address] [place] [address], [place] [address] Nov, [facility] [address] [id number] [address] [place] [address], [place] [address] Oct, [facility] [address] [id number] [address] [place] [address], [place] [address] Oct, [facility] [address] [id number] [address] [place] [address], [place] [address] Oct, [facility] [address] [id number] [address] [place] [address], [place] [address] September, [facility] [address] [id number] [address] [place] [address], [place] [address] September, [facility] [address] [id number] [address] [place] [address], [place] [address] September, [facility] [address] [id number] [address] [place] [address], [place] [address] Aug, [facility] [address] [id number] [address] [place] [address], [place] [address] Aug, [facility] [address] [id number] [address] [place] [address], [place] [address] Aug, [facility] [address] [id number] [address] [place] [address], [place] [address] 16 Aug, 2011 [facility] [address] [id number] [address] [place] [address], [place] [address] Jul, [facility] [address] [id number] [address] [place] [address], [place] [address] 21 Jun, 2011 [facility] [address] [id number] [address] [place] [address], [place] [address] 14 Jun, 2011 [facility] [address] [id number] [address] [place] [address] [address] 13 Jun, 2011 [facility] [address] [id number] [address] [place] [address], [place] [address] Jun, [facility] [address] [id number] [address] [place] [address], [place] [address] Jun, [facility] [address] [id number] [address] [place] [address], [place] [address] May, [facility] [address] [id number] [address] [place] [address], [place] [address] May, [facility] [address] [id number] [address] [place] [address], [place] [address] May, [facility] [address] [id number] [address] [place] [phone] May, [facility] [address] [id number] [address] [place] [address], [place] [address] Apr, [facility] [address] [id number] [address] [place] [address], [place] [address] Apr, [facility] [address] [id number] [address] [place] [phone] Apr, [facility] [address] [id number] [address] [place] [address], [place] [address] Mar, [facility] [address] [id number] [address] [place] [phone] Mar, [facility] [address] [id number] [address] [place] [phone] Mar, [facility] [address] [id number] [address] [place] [address], [place] [address] 13 Feb, 2011 [facility] [address] [id number] [address] [place] [id number] 13 Feb, 2011 [facility] [address] [id number] [address] [place] [id number] 13 Feb, 2011 [facility] [address] [id number] [address] [place] [phone] 11 Nov, 2010 [facility] [address] [id number] [address] [place] [phone] September, [facility] [address] [id number] [address] [place] [phone] Aug, [facility] [address] [id number] [address] [place] [phone] Jul, [facility] [address] [id number] [address] [place] [phone] May, [facility] [address] [address] [facility] [id number] [address] [place] [phone] Apr, [facility] [address] [facility] [id number] [address] [place] [phone] Apr, [facility] [address] [facility] [id number] [address] [place] [phone] Apr, [facility] [address] [facility] [id number] [address] [place] [phone] Apr, [facility] [address] [facility] [id number] [address] [place] [phone] Apr, IMMUNIZATIONS No Known Immunizations SOCIAL HISTORY Never Assessed REASON FOR VISIT CCM note/med refill discussion PLAN OF CARE VITAL SIGNS MEDICATIONS Unknown [...]
--- OUTSIDE RECORDS SUMMARY | 2019-07-17 10:49 | XMS REPORT ---
Author Author Sujey GANDHI Organization [facility] Address [address] [place] [address] Care Team Providers Care Tool Repairer Bench Name Role Phone WHIT GANDHI Unavailable PROBLEMS Type Condition ICD9-CM Code [id number] Code Onset Dates Condition S tatus SNOMED Code Problem Diabetes E11.9 Active 91762238 Problem GERD (gastroesophageal reflux disease) K21.9 Active 208107113 Problem Anxiety disorder, unspecified F41.9 Active 154014253 Problem Hypertension I10 Active 3672626 3 Problem Other bipolar disorder F31.89 Active 76084865 Problem Fibromyalgia M79.7 Active 0388999 7 Problem Panic disorder with agoraphobia F40.01 Active 83162481 Problem Chronic obstructive pulmonary disease, unspecified J44.9 Active 92738215 Problem Lumbago with sciatica, left side M54.42 Active 987194869 Problem Migraine without aura and without status migrain osus, not intractable G43.009 Active 148685021 Problem Lumbago with sciatica, right side M54.41 Active 789039179 Problem Fibrocystic disease of right breast N60.11 Active 60009437 Problem Other chronic pain G89.29 Active 8 1410959 Problem Fibrocystic disease of left breast N60.12 Active 44314562 Problem Irritable bowel syndrome with constipation K58.1 Active 408736211 Problem Arthritis M19.90 Active 1671034 Problem Abnormal mammogram of right breast R92.8 Active 659807535 Problem Daytime somnolence R40.0 Active 1 [id number] Problem Bipolar affective disorder, remission status unspecified F31.9 Active 00723282 Problem Chronic post-traumatic stress disorder (PTSD) F43. 12 Active 693931921 Problem Bipolar 1 disorder, depressed, moderate F31.32 Active 28508044 Problem Schizoaffective disorder, bipolar type F25.0 Active 70702112 Problem Irritable bowel syndrome with both constipation and diarrh ea K58.2 Active 38868816 Problem Slow transit constipation K59.01 Acti ve 62856367 Problem Essential tremor G25.0 Active 609 769904 Problem Acute non-recurrent maxillary sinusitis J01.00 Active 35597734 Problem Back pain M54.9 Active 880155646 Problem Bipolar 1 disorder, depressed, partial remission F 31.75 Active 86573604 Problem Attention deficit hyperactiv ity disorder (ADHD), predominantly inattentive type F90.0 Active 70073777 Problem Bipolar I disorder with depression F31.9 Active 09740153 Problem Panlobular emphysema J43.1 Active 7286931 Problem Akathisia G25.71 Active 363281689 Problem Mild persistent asthma without complication J45.30 Active 163985411 Problem Moderate persistent asthma without complication J4 5.40 Active 668607349 ALLERGIES No Information ENCOUNTERS Encounter Location Date Diagnosis [facility] [address] [facility] [id number] [address] [place] [phone] Mar, [facility] [address] [phone] Mar, [facility] [address] [place] [id number] [address] [place] [phone] Mar, [facility] [address] [address] Mar, [facility] [address] [place] [id number] [address] [place] [phone] Mar, Diabetes E11.9 [facility] [address] [place] [id number] [address] [place] [phone] Mar, [facility] [address] [facility] [id number] [address] [place] [phone] Feb, Daytime somnolence R40.0 and Anxiety disorder, unspecified F41.9 [facility] [address] [facility] [id number] [address] [place] [phone] Feb, [facility] [address] [facility] [id number] [address] [place] [phone] Feb, [facility] [address] [place] [id number] [address] [place] [phone] Feb, Tremors of nervous system R2 5.1 and Acute swimmer''s ear of right side H60.331 [facility] [address] [facility] [id number] [address] [place] [phone] Feb, Cerebrovascular accident (CV A) due to occlusion of right cerebellar artery I63.541 and Hypertension I10 [facility] [address] [facility] [id number] [address] [place] [phone] Feb, [facility] [address] [facility] [id number] [address] [place] [phone] Feb, Cerebrovascular accident (CV A) due to occlusion of right cerebellar artery I63.541 [facility] [address] [address] [id number] [id number] Feb, Hyponatremia E87.1 [place] [address] [facility] [id number] [address] [place] [phone] Feb, [facility] [address] [facility] [id number] [address] [place] [address] Feb, Daytime somnolence R40.0 [facility] [address] [facility] [id number] [address] [place] [phone] Feb, [facility] [address] [facility] [id number] [address] [place] [phone] Jan, [facility] [address] [facility] [id number] [address] [place] [phone] Jan, [facility] [address] [facility] [id number] [address] [place] [phone] Jan, Chronic obstructive pulmonar y disease, unspecified J44.9 and Anxiety disorder, unspecified F41.9 [facility] [address] [facility] [id number] [address] [place] [address] Jan, Hypertension I10 ; Fibromyal medhat M79.7 and Lumbago with sciatica, left side M54.42 [facility] [address] [id number] [address] [place] [phone] 26 Jan, 2018 [facility] [address] [facility] [id number] [address] [place] [phone] 20 Jan, 2018 Cerebrovascular accident (CV A) due to occlusion of right cerebellar artery I63.541 [facility] [address] [facility] [id number] [address] [place] [phone] 19 Jan, 2018 [facility] [address] [facility] [id number] [address] [place] [phone] 13 Jan, 2018 Arthritis M19.90 [place] [address] [facility] [id number] [address] [place] [phone] 07 Jan, 2018 [place] [address] [place] [id number] [address] [place] [phone] 04 Jan, 2018 Abnormal mammogram of right breast R92.8 [place] [address] [place] [id number] [address] [place] [phone] Dec, Daytime somnolence R40.0 and Right otitis media with effusion H65.91 [place] [address] [facility] [id number] [address] [place] [phone] Dec, [place] [address] [facility] [id number] [address] [place] [phone] Dec, Cerebrovascular accident (CV A) due to occlusion of right cerebellar artery I63.541 [facility] [address] [facility] [id number] [address] [place] [phone] Dec, [facility] [address] [facility] [id number] [address] [place] [phone] Dec, [place] [address] [place] [id number] [address] [place] [phone] Nov, Bipolar 1 disorder, depresse d, partial remission F31.75 and Panic disorder with agoraphobia F40.01 [place] [address] [place] [id number] [address] [place] [phone] Nov, Panlobular emphysema J43.1 [facility] [address] [id number] [address] [place] [address] Nov, Cerebrovascular accident (CV A) due to occlusion of right cerebellar artery I63.541 and Acute non-recurrent maxillary sinusitis J01.00 [facility] [address] [id number] [address] [place] [phone] Nov, Panlobular emphysema J43.1 [facility] [address] [id number] [address] [place] [phone] Nov, [facility] [address] [id number] [address] [place] [phone] Nov, [facility] [address] [id number] [address] [place] [phone] Nov, [facility] [address] [id number] [address] [place] [phone] Nov, [facility] [address] [id number] [address] [place] [phone] Nov, [facility] [address] [id number] [address] [place] [phone] Nov, [facility] [address] [id number] [address] [place] [phone] Nov, [facility] [address] [id number] [address] [place] [phone] Nov, Mild persistent asthma witho ut complication J45.30 and Irritable bowel syndrome with both constipation and diarrhea K58.2 [facility] [address] [id number] [address] [place] [phone] Nov, [facility] [address] [id number] [address] [place] [phone] Oct, [facility] [address] [id number] [address] [place] [phone] Oct, [facility] [address] [id number] [address] [place] [phone] Oct, Type 2 diabetes mellitus wit h diabetic neuropathy, unspecified whether ferry terminal agent insulin use E11.40 ; Diabetes E11.9 ; Slow transit constipation K59.01 ; Edema of both legs R60.0 and Dysfunction of right eustachian tube H69.81 [facility] [address] [id number] [address] [place] [phone] Oct, Frequent headaches R51 [facility] [address] [id number] [address] [place] [phone] Oct, [facility] [address] [id number] [address] [place] [phone] Oct, [facility] [address] [facility] [id number] [address] [place] [id number] Oct, [facility] [address] [facility] [id number] [address] [place] [phone] Oct, [facility] [address] [facility] [id number] [address] [place] [phone] Oct, [facility] [address] [facility] [id number] [address] [place] [phone] Oct, [facility] [address] [facility] [id number] [address] [place] [phone] Oct, [facility] [address] [facility] [id number] [address] [place] [phone] Oct, [facility] [address] [facility] [id number] [address] [place] [phone] September, Frequent headaches R51 [facility] [address] [facility] [id number] [address] [place] [phone] September, Bilateral otitis media with effusion H65.93 ; Dizziness R42 and Essential tremor G25.0 [facility] [address] [id number] [address] [place] [phone] September, Chronic obstructive pulmonar y disease, unspecified COPD type J44.9 [facility] [address] [id number] [address] [place] [phone] September, Chronic obstructive pulmonar y disease, unspecified COPD type J44.9 [facility] [address] [id number] [address] [place] [address] September, Migraine without aura and wi thout status migrainosus, not intractable G43.009 [facility] [address] [id number] [address] [place] [phone] September, [facility] [address] [id number] [address] [place] [phone] September, [facility] [address] [facility] [id number] [address] [place] [phone] September, [facility] [address] [facility] [id number] [address] [place] [address] September, Frequent headaches R51 [facility] [address] [id number] [address] [place] [phone] Aug, [facility] [address] [facility] [id number] [address] [place] [phone] Aug, Breast mass, right N63.10 [facility] [address] [facility] [id number] [address] [place] [phone] Aug, Breast lump N63.0 [facility] [address] [facility] [id number] [address] [place] [phone] Aug, [facility] [address] [facility] [id number] [address] [place] [phone] Aug, Bipolar affective disorder, remission status unspecified F31.9 and Diabetes E11.9 [facility] [address] [facility] [id number] [address] [place] [phone] Aug, Diabetes E11.9 ; Schizoaffec tive disorder, bipolar type F25.0 ; Pharyngitis due to other organism J02.8 ; Panlobular emphysema J43.1 and Irritable bowel syndrome with both constipation and diarrhea K58.2 [place] [address] [id number] [address] [place] [phone] Aug, Abnormal mammogram R92.8 [facility] [address] [id number] [address] [place] [phone] Aug, [facility] [address] [id number] [address] [place] [phone] Aug, Bipolar 1 disorder, depresse d, moderate F31.32 ; Panic disorder with agoraphobia F40.01 and Chronic post-traumatic stress disorder (PTSD) F43.12 [place] [address] [id number] [address] [place] [phone] Aug, [place] [address] [id number] [address] [place] [phone] Aug, [place] [address] [id number] [address] [place] [phone] Aug, [place] [address] [id number] [address] [place] [id number] Jul, [place] [address] [facility] [id number] [address] [place] [address] Jul, Mild persistent asthma witho ut complication J45.30 [place] [address] [id number] [address] [place] [address] Jul, Mild persistent asthma witho ut complication J45.30 [place] [address] [id number] [address] [place] [phone] 15 Jul, 2017 Bipolar affective disorder, remission status unspecified F31.9 ; Diabetes E11.9 and Irritable bowel syndrome with constipation K58.1 [place] [address] [id number] [address] [place] [phone] Jul, [place] [address] [facility] [id number] [address] [place] [phone] Jul, [facility] [address] [facility] [id number] [address] [place] [phone] Jul, Frequent headaches R51 [facility] [address] [facility] [id number] [address] [place] [phone] Jul, [facility] [address] [facility] [id number] [address] [place] [phone] Jul, [facility] [address] [facility] [id number] [address] [place] [phone] Jul, [facility] [address] [facility] [id number] [address] [place] [phone] Jul, Frequent headaches R51 ; Fib rocystic disease of left breast N60.12 ; Fibrocystic disease of right breast N60.11 and Diabetes E11.9 [place] [address] [facility] [id number] [address] [place] [address] Jul, [place] [address] [facility] [id number] [address] [place] [address] Jul, [place] [address] [address] Jun, Exudative tonsillitis J03.90 [place] [address] [place] [id number] [address] [place] [phone] Jun, [place] [address] [place] [id number] [address] [place] [phone] 19 Jun, 2017 [place] [address] [facility] [id number] [address] [place] [phone] 15 Jun, 2017 Mild persistent asthma witho ut complication J45.30 ; Chronic obstructive pulmonary disease, unspecified COPD type J44.9 and Exudative tonsillitis J03.90 [place] [address] [facility] [id number] [address] [place] [phone] 13 Jun, 2017 Encounter for immunization Z 23 [place] [address] [place] [id number] [place] [phone] Jun, [facility] [address] [facility] [id number] [address] [place] [phone] Jun, [facility] [address] [facility] [id number] [address] [place] [phone] Jun, [facility] [address] [facility] [id number] [address] [place] [phone] 06 Jun, 2017 Tonsillitis J03.90 [facility] [address] [facility] [id number] [address] [place] [phone] Jun, [facility] [address] [facility] [id number] [address] [place] [address] Jun, Acute non-recurrent maxillar y sinusitis J01.00 [facility] [address] [facility] [id number] [address] [place] [phone] Jun, [facility] [address] [facility] [id number] [address] [place] [phone] May, [facility] [address] [facility] [id number] [address] [place] [phone] May, [facility] [address] [facility] [id number] [address] [place] [address] May, GERD (gastroesophageal reflu x disease) K21.9 [facility] [address] [facility] [id number] [address] [place] [address] May, Migraine without aura and wi thout status migrainosus, not intractable G43.009 [facility] [address] [facility] [id number] [address] [place] [phone] May, [facility] [address] [facility] [id number] [address] [place] [phone] May, [facility] [address] [facility] [id number] [address] [place] [phone] May, Panlobular emphysema J43.1 a nd Acute non-recurrent maxillary sinusitis J01.00 [facility] [address] [id number] [address] [place] [address] May, Bipolar 1 disorder, depresse d, moderate F31.32 ; Panic disorder with agoraphobia F40.01 and Akathisia G25.71 [facility] [address] [id number] [address] [place] [phone] Apr, [facility] [address] [id number] [address] [place] [phone] Apr, [facility] [address] [facility] [id number] [address] [place] [phone] Apr, Acute non-recurrent maxillar y sinusitis J01.00 [facility] [address] [facility] [id number] [address] [place] [phone] Apr, Panlobular emphysema J43.1 [facility] [address] [id number] [address] [place] [phone] Apr, [facility] [address] [facility] [id number] [address] [place] [phone] 04 Apr, 2017 Exudative tonsillitis J03.90 and Sore throat J02.9 [facility] [address] [facility] [id number] [place] [phone] 17 Mar, 2017 [facility] [address] [facility] [id number] [place] [id number] 15 Mar, 2017 Acute non-recurrent maxillar y sinusitis J01.00 [facility] [address] [id number] [place] [id number] Mar, [facility] [address] [facility] [id number] [address] [place] [phone] 09 Mar, 2017 Panlobular emphysema J43.1 a nd Diabetes E11.9 [facility] [address] [facility] [id number] [place] [id number] Mar, [facility] [address] [facility] [id number] [address] [place] [phone] 24 Feb, 2017 Wheezing R06.2 and Acute rec urrent pansinusitis J01.41 [facility] [address] [facility] [id number] [place] [id number] Feb, [facility] [address] [facility] [id number] [address] [place] [phone] Feb, Acute non-recurrent maxillar y sinusitis J01.00 [facility] [address] [facility] [id number] [address] [place] [id number] Feb, Chronic obstructive pulmonar y disease, unspecified J44.9 [facility] [address] [facility] [id number] [address] [place] [phone] Feb, Hypoxemia R09.02 and Chronic obstructive pulmonary disease, unspecified J44.9 [facility] [address] [facility] [id number] [address] [place] [phone] 28 Jan, 2017 Bipolar 1 disorder, depresse d, moderate F31.32 ; Panic disorder with agoraphobia F40.01 ; Chronic post-traumatic stress disorder (PTSD) F43.12 ; Diabetes E11.9 and Moderate persistent asthma without complication J45.40 [facility] [address] [facility] [id number] [address] [place] [id number] 22 Jan, 2017 [facility] [address] [facility] [id number] [address] [place] [id number] 19 Jan, 2017 Acute non-recurrent maxillar y sinusitis J01.00 [facility] [address] [facility] [id number] [address] [place] [id number] 18 Jan, 2017 [facility] [address] [facility] [id number] [address] [place] [phone] 18 Jan, 2017 [facility] [address] [facility] [id number] [address] [place] [phone] 12 Jan, 2017 Moderate persistent asthma w [facility] complication J45.40 and Hypoxemia R09.02 [facility] [address] [id number] [address] [place] [phone] Jan, Moderate persistent asthma w [facility] complication J45.40 and Hypoxemia R09.02 [facility] [address] [id number] [address] [place] [phone] Jan, [facility] [address] [id number] [address] [place] [phone] Dec, Acute non-recurrent maxillar y sinusitis J01.00 [facility] [address] [id number] [address] [place] [phone] Dec, Chronic obstructive pulmonar y disease, unspecified J44.9 [facility] [address] [id number] [address] [place] [phone] Dec, [facility] [address] [id number] [address] [place] [phone] Dec, [facility] J[facility].30 and Other chronic pain G89.29 [facility] [address] [id number] [address] [place] [phone] Nov, [facility] [address] [id number] [address] [place] [phone] Nov, Acute non-recurrent maxillar y sinusitis J01.00 [facility] [address] [id number] [address] [place] [phone] Nov, [facility] [address] [id number] [address] [place] [phone] Nov, [facility] [address] [id number] [address] [place] [phone] Oct, [facility] [address] [facility] [id number] [address] [place] [phone] Oct, Bipolar 1 disorder, depresse d, partial remission F31.75 ; Panic disorder with agoraphobia F40.01 and Chronic post-traumatic stress disorder (PTSD) F43.12 [facility] [address] [id number] [address] [place] [phone] Oct, Acute non-recurrent maxillar y sinusitis J01.00 [facility] [address] [id number] [address] [place] [phone] Oct, [facility] [address] [facility] [id number] [address] [place] [phone] Oct, Diabetes E11.9 [facility] [address] [id number] [address] [place] [phone] September, Diabetes E11.9 [facility] [address] [id number] [address] [place] [phone] September, Diabetes E11.9 and Sinus tac hycardia R00.0 [facility] [address] [facility] [id number] [address] [place] [phone] September, [facility] [address] [facility] [id number] [address] [place] [phone] September, [facility] [address] [facility] [id number] [address] [place] [phone] Aug, Diabetes E11.9 and Lumbago w ith sciatica, right side M54.41 [facility] [address] [facility] [id number] [address] [place] [phone] Aug, [facility] [address] [facility] [id number] [address] [place] [phone] Jul, Bipolar 1 disorder, depresse d, moderate F31.32 ; Panic disorder with agoraphobia F40.01 and Chronic post-traumatic stress disorder (PTSD) F43.12 [facility] [address] [facility] [id number] [address] [place] [phone] Jul, Sore throat J02.9 [facility] [address] [facility] [id number] [address] [place] [phone] Jul, [facility] [address] [id number] [address] [place] [phone] Jul, [facility] [address] [id number] [address] [place] [phone] Jul, [facility] [address] [id number] [address] [place] [phone] Jul, [facility] [address] [id number] [address] [place] [phone] Jul, Sore throat J02.9 and Pharyn gitis, unspecified etiology J02.9 [facility] [address] [id number] [address] [place] [phone] Jun, [facility] [address] [id number] [address] [place] [phone] Jun, Diabetes E11.9 [facility] [address] [id number] [address] [place] [phone] Jun, [facility] [address] [id number] [address] [place] [phone] Jun, [facility] [address] [id number] [address] [place] [phone] Jun, [facility] [address] [id number] [address] [place] [phone] Jun, [facility] [address] [id number] [address] [place] [phone] Jun, [facility] [address] [id number] [address] [place] [phone] Jun, [facility] [address] [id number] [address] [place] [phone] Jun, [facility] [address] [id number] [address] [place] [phone] Jun, [facility] [address] [id number] [address] [place] [phone] May, Diabetes E11.9 ; Other chron ic pain G89.29 ; Acute recurrent maxillary sinusitis J01.01 ; Bipolar I disorder with depression F31.9 and Anxiety disorder, unspecified F41.9 [place] [address] [id number] [address] [place] [phone] May, [place] [address] [facility] [id number] [address] [place] [phone] May, Diabetes E11.9 ; Bipolar I d isorder with depression F31.9 ; Anxiety disorder, unspecified F41.9 ; Other chronic pain G89.29 and Acute recurrent maxillary sinusitis J01.01 [place] [address] [facility] [id number] [address] [place] [phone] May, [place] [address] [facility] [id number] [address] [place] [phone] May, Attention deficit hyperactiv ity disorder (ADHD), predominantly inattentive type F90.0 [place] [address] [facility] [id number] [address] [place] [phone] May, [place] [address] [facility] [id number] [address] [place] [phone] Apr, Attention deficit hyperactiv ity disorder (ADHD), predominantly inattentive type F90.0 and Non-seasonal allergic rhinitis due to other allergic trigger J30.89 [place] [address] [place] [id number] [address] [place] [phone] Apr, Bipolar 1 disorder, depresse d, moderate F31.32 ; Panic disorder with agoraphobia F40.01 and Chronic post-traumatic stress disorder (PTSD) F43.12 [place] [address] [facility] [id number] [address] [place] [phone] Apr, Dental examination Z01.20 [place] [address] [facility] [id number] [address] [place] [phone] Mar, [place] [address] [place] [id number] [address] [place] [phone] Mar, [facility] [address] [id number] [address] [place] [phone] Mar, Bipolar I disorder with depr ession F31.9 and Anxiety disorder, unspecified F41.9 [facility] [address] [id number] [address] [place] [phone] 08 Mar, 2016 Panic disorder with agorapho syd F40.01 ; Bipolar 1 disorder, depressed, moderate F31.32 and Chronic post-traumatic stress disorder (PTSD) F43.12 [facility] [address] [id number] [address] [place] [phone] Mar, [facility] [address] [id number] [address] [place] [phone] Mar, Dental caries K02.9 [facility] [address] [id number] [address] [place] [phone] 24 Feb, 2016 Lumbago with sciatica, left side M54.42 ; Lumbago with sciatica, right side M54.41 and Other chronic pain G89.29 [facility] [address] [id number] [address] [place] [phone] Feb, [facility] [address] [id number] [address] [place] [phone] Feb, [facility] [address] [id number] [address] [place] [phone] 13 Feb, 2016 Bipolar I disorder with depr ession F31.9 ; PTSD (post-traumatic stress disorder) F43.10 and Mood disorder F39 [facility] [address] [id number] [address] [place] [phone] Feb, [facility] [address] [id number] [address] [place] [phone] 11 Feb, 2016 Dental examination Z01.20 [facility] [address] [id number] [address] [place] [phone] 07 Feb, 2016 [facility] [address] [place] [id number] [address] [place] [phone] Feb, Acute bronchitis, unspecifie d organism J20.9 [facility] [address] [place] [id number] [address] [place] [phone] Jan, Mood disorder F39 ; Migraine without aura and without status migrainosus, not intractable G43.009 ; Irritable bowel syndrome, unspecified type K58.9 ; Diabetes E11.9 and Encounter for immunization Z23 [facility] [address] [phone] Jan, [facility] [address] [phone] Jan, [facility] [address] [phone] Jan, [facility] [address] [phone] Jan, [facility] [address] [phone] Jan, [facility] [address] [phone] Dec, Bipolar I disorder with depr ession F31.9 ; PTSD (post-traumatic stress disorder) F43.10 and Panic disorder with agoraphobia F40.01 [facility] [address] [phone] Dec, Chronic obstructive pulmonar y disease, unspecified COPD type J44.9 ; Tremor R25.1 and Anxiety F41.9 [facility] [address] [address] Dec, [facility] [address] [id number] Nov, Tremors of nervous system R2 5.1 and Cramping of feet R25.2 [place] [address] [place] [address] Nov, [facility] [address] [facility] [id number] [address] [place] [phone] Nov, [facility] [address] [facility] [id number] [address] [place] [phone] Oct, Chronic obstructive pulmonar y disease, unspecified J44.9 [facility] [address] [facility] [id number] [address] [place] [phone] Oct, [facility] [address] [facility] [id number] [address] [place] [phone] Oct, Tremor R25.1 [facility] [address] [facility] [id number] [address] [place] [phone] Oct, Bipolar I disorder with depr ession F31.9 ; Diabetes E11.9 ; PTSD (post-traumatic stress disorder) F43.10 and Panic disorder with agoraphobia F40.01 [facility] [address] [place] [id number] [address] [place] [phone] Oct, Mood disorder F39 [facility] [address] [place] [id number] [address] [place] [phone] September, [facility] [address] [facility] [id number] [address] [place] [phone] September, Diabetes E11.9 ; Bipolar I d isorder with depression F31.9 ; PTSD (post-traumatic stress disorder) F43.10 and Panic disorder with agoraphobia F40.01 [facility] [address] [facility] [id number] [address] [place] [phone] September, Mood disorder F39 ; Schizoaf fective disorder, unspecified type F25.9 ; Arthritis M19.90 ; Tremor R25.1 ; Acute non-recurrent frontal sinusitis J01.10 and Blood in stool K92.1 [facility] [address] [facility] [id number] [address] [place] [phone] September, [place] [address] [id number] [address] [place] [phone] September, Chronic obstructive pulmonar y disease, unspecified J44.9 [facility] [address] [id number] [address] [place] [phone] September, Diabetes E11.9 [facility] [address] [id number] [address] [place] [phone] Aug, Other bipolar disorder F31.8 9 and Anxiety disorder, unspecified F41.9 [facility] [address] [id number] [address] [place] [phone] Aug, [facility] [address] [id number] [address] [place] [phone] Aug, Diabetes E11.9 [facility] [address] [facility] [id number] [address] [place] [phone] 18 Aug, 2015 [facility] [address] [id number] [address] [place] [phone] 14 Aug, 2015 Diabetes E11.9 ; Fatigue R53 .83 and Dizziness R42 [facility] [address] [id number] [address] [place] [phone] Aug, Other bipolar disorder F31.8 9 [facility] [address] [id number] [address] [place] [phone] Aug, Generalized anxiety disorder F41.1 [facility] [address] [id number] [address] [place] [phone] 07 Aug, 2015 Other bipolar disorder F31.8 9 and Anxiety disorder, unspecified F41.9 [facility] [address] [id number] [address] [place] [phone] Aug, [facility] [address] [id number] [address] [place] [phone] Jul, [facility] [address] [id number] [address] [place] [phone] Jul, [facility] [address] [facility] [id number] [address] [place] [phone] Jul, Bronchitis J40 [facility] [address] [facility] [id number] [address] [place] [phone] Jul, Anxiety disorder F41.9 [facility] [address] [place] [id number] [address] [place] [id number] Jul, Other bipolar disorder F31.8 9 and Anxiety disorder, unspecified F41.9 [facility] [address] [facility] [id number] [address] [place] [id number] Jul, Other bipolar disorder F31.8 9 and Fibromyalgia M79.7 [facility] [address] [facility] [id number] [address] [place] [phone] Jul, [facility] [address] [place] [id number] [address] [place] [phone] Jul, [facility] [address] [facility] [id number] [address] [place] [phone] Jul, [facility] [address] [facility] [id number] [address] [place] [phone] Jul, Other bipolar disorder F31.8 9 and Anxiety disorder, unspecified F41.9 [facility] [address] [place] [id number] [address] [place] [phone] Jun, GERD (gastroesophageal reflu x disease) K21.9 [facility] [address] [facility] [id number] [address] [place] [phone] Jun, [facility] [address] [facility] [id number] [address] [place] [phone] May, [facility] [address] [place] [id number] [address] [place] [phone] May, Diabetes E11.9 ; Back pain M 54.9 ; GERD (gastroesophageal reflux disease) K21.9 ; Hypertension I10 and Peripheral neuropathy G62.9 [facility] [address] [place] [id number] [place] [phone] Mar, [facility] [address] [id number] [address] [place] [phone] Mar, [facility] [address] [id number] [address] [place] [phone] Mar, Acute sinusitis J01.90 and O titis media, left H66.92 [facility] [address] [id number] [address] [place] [phone] Feb, [facility] [address] [id number] [address] [place] [phone] Feb, [facility] [address] [id number] [address] [place] [phone] Feb, [facility] [address] [id number] [address] [place] [phone] Feb, [facility] [address] [id number] [address] [place] [phone] Jan, [facility] [address] [id number] [address] [place] [phone] Jan, Diabetes 250.00 and Back higinio n 724.5 [facility] [address] [id number] [address] [place] [phone] Jan, [facility] [address] [id number] [address] [place] [phone] Dec, Diabetes 250.00 ; Benign ess ential hypertension 401.1 and Allergic rhinitis 477.9 [facility] [address] [id number] [address] [place] [phone] Dec, [facility] [address] [id number] [address] [place] [phone] Dec, [facility] [address] [id number] [address] [place] [id number] Dec, Psychosis 298.9 [facility] [address] [facility] [id number] [address] [place] [phone] Dec, Medication side effect 995.2 0 and Generalized anxiety disorder 300.02 [facility] [address] [facility] [id number] [address] [place] [phone] Dec, Acquired cognitive dysfuncti on 294.9 [facility] [address] [facility] [id number] [address] [place] [phone] Dec, [facility] [address] [facility] [id number] [address] [place] [phone] Dec, Unspecified myalgia and myos itis 729.1 and Generalized anxiety disorder 300.02 [facility] [address] [facility] [id number] [address] [place] [phone] Nov, [facility] [address] [place] [id number] [address] [place] [phone] Nov, [facility] [address] [facility] [id number] [address] [place] [phone] Nov, [facility] [address] [facility] [id number] [address] [place] [phone] Nov, Upper respiratory infection 465.9 and Chronic airway obstruction, not elsewhere classified 496 [facility] [address] [facility] [id number] [address] [place] [phone] Nov, Hyponatremia 276.1 [facility] [address] [facility] [id number] [address] [place] [phone] Oct, [facility] [address] [facility] [id number] [address] [place] [phone] Oct, [facility] [address] [facility] [id number] [address] [place] [phone] Oct, [facility] [address] [facility] [id number] [address] [place] [phone] Oct, [facility] [address] [facility] [id number] [address] [place] [phone] Oct, Hyponatremia 276.1 [facility] [address] [id number] [address] [place] [phone] Oct, [facility] [address] [id number] [address] [place] [phone] Oct, [facility] [address] [facility] [id number] [address] [place] [phone] Oct, Generalized anxiety disorder 300.02 [facility] [address] [id number] [address] [place] [phone] Oct, Generalized anxiety disorder 300.02 and Diabetes 250.00 [facility] [address] [id number] [address] [place] [phone] Aug, [facility] [address] [facility] [id number] [address] [place] [phone] Aug, [facility] [address] [id number] [address] [place] [phone] Jul, [facility] [address] [id number] [address] [place] [phone] Jul, [facility] [address] [id number] [address] [place] [phone] Jun, [facility] [address] [facility] [id number] [address] [place] [phone] Jun, [facility] [address] [id number] [address] [place] [phone] Jun, [facility] [address] [id number] [address] [place] [phone] Jun, [facility] [address] [id number] [address] [place] [address] [id number] Jun, [facility] [address] [id number] [address] [place] [id number] May, [facility] [address] [id number] [address] [place] [id number] May, [facility] [address] [id number] [address] [place] [address], [place] [address] Apr, [facility] [address] [id number] [address] [place] [address], [place] [address] Apr, [facility] [address] [id number] [address] [place] [address], [place] [address] Apr, [facility] [address] [id number] [address] [place] [address], [place] [address] Apr, [facility] [address] [id number] [address] [place] [address], [place] [address] Apr, [facility] [address] [id number] [address] [place] [address], [place] [address] Apr, [facility] [address] [id number] [address] [place] [address], [place] [address] Apr, [facility] [address] [id number] [address] [place] [address], [place] [address] Apr, [facility] [address] [id number] [address] [place] [address], [place] [address] Feb, [facility] [address] [id number] [address] [place] [address], [place] [address] Feb, [facility] [address] [id number] [address] [place] [address], [place] [address] Jan, [facility] [address] [id number] [address] [place] [address], [place] [address] Jan, [facility] [address] [id number] [address] [place] [address], [place] [address] Dec, [facility] [address] [id number] [address] [place] [address], [place] [address] Dec, [facility] [address] [id number] [address] [place] [address], [place] [address] Dec, [facility] [address] [id number] [address] [place] [address], [place] [address] Nov, [facility] [address] [id number] [address] [place] [address], [place] [address] Nov, [facility] [address] [id number] [address] [place] [address], [place] [address] Nov, [facility] [address] [id number] [address] [place] [address], [place] [address] Oct, [facility] [address] [id number] [address] [place] [address], [place] [address] Oct, [facility] [address] [id number] [address] [place] [address], [place] [address] Oct, [facility] [address] [id number] [address] [place] [address], [place] [address] September, [facility] [address] [id number] [address] [place] [address], [place] [address] September, [facility] [address] [id number] [address] [place] [address], [place] [address] September, [facility] [address] [id number] [address] [place] [address], [place] [address] Aug, [facility] [address] [id number] [address] [place] [address], [place] [address] Aug, [facility] [address] [id number] [address] [place] [address], [place] [address] Aug, [facility] [address] [id number] [address] [place] [address], [place] [address] 16 Aug, 2011 [facility] [address] [id number] [address] [place] [address], [place] [address] Jul, [facility] [address] [id number] [address] [place] [address], [place] [address] Jun, [facility] [address] [id number] [address] [place] [address], [place] [address] 14 Jun, 2011 [facility] [address] [id number] [address] [place] [address], [place] [address] 13 Jun, 2011 [facility] [address] [id number] [address] [place] [address], [place] [address] 07 Jun, 2011 [facility] [address] [id number] [address] [place] [address], [place] [address] 03 Jun, 2011 [facility] [address] [id number] [address] [place] [address], [place] [address] 13 May, 2011 [facility] [address] [id number] [address] [place] [address], [place] [address] May, [facility] [address] [id number] [address] [place] [address], [place] [address] May, [facility] [address] [id number] [address] [place] [address], [place] [address] May, [facility] [address] [id number] [address] [place] [address], [place] [address] Apr, [facility] [address] [id number] [address] [place] [address], [place] [address] Apr, [facility] [address] [id number] [address] [place] [address], [place] [address] Apr, [facility] [address] [id number] [address] [place] [address], [place] [address] Mar, [facility] [address] [id number] [address] [place] [address] Mar, [facility] [address] [id number] [address] [place] [address], [place] [address] Mar, [facility] [address] [id number] [address] [place] [address], [place] [address] 13 Feb, 2011 [facility] [address] [id number] [address] [place] [address], [place] [address] 13 Feb, 2011 [facility] [address] [id number] [address] [place] [address] 13 Feb, 2011 [facility] [address] [id number] [address] [place] [id number] 11 Nov, 2010 [facility] [address] [id number] [address] [place] [id number] 16 Sep, 2010 [facility] [address] [id number] [address] [place] [address] Aug, [facility] [address] [id number] [address] [place] [phone] Jul, [facility] [address] [id number] [address] [place] [address] May, [facility] [address] [id number] [address] [place] [id number] Apr, [facility] [address] [id number] [address] [place] [address] Apr, [facility] [address] [id number] [address] [place] [id number] Apr, [facility] [address] [id number] [address] [place] [address] Apr, [facility] [address] [id number] [address] [place] [id number] Apr, IMMUNIZATIONS No Known Immunizations SOCIAL HISTORY [...]
--- OUTSIDE RECORDS SUMMARY | 2019-07-17 10:50 | XMS REPORT ---
Author Author Sujey GANDHI Organization [facility] Address [address] [place] [address] Care Team Providers Care Life Assurance Representative Name Role Phone WHIT GANDHI Unavailable PROBLEMS Type Condition ICD9-CM Code XZH20-UN Code Onset Dates Condition S tatus SNOMED Code Problem Diabetes E11.9 Active 31913837 Problem GERD (gastroesophageal reflux disease) K21.9 Active 048791724 Problem Anxiety disorder, unspecified F41.9 Active 902268466 Problem Hypertension I10 Active 8475335 3 Problem Other bipolar disorder F31.89 Active 70050332 Problem Fibromyalgia M79.7 Active 4637235 7 Problem Panic disorder with agoraphobia F40.01 Active 61373938 Problem Chronic obstructive pulmonary disease, unspecified J44.9 Active 56882944 Problem Lumbago with sciatica, left side M54.42 Active 331078028 Problem Migraine without aura and without status migrain osus, not intractable G43.009 Active 876342436 Problem Lumbago with sciatica, right side M54.41 Active 317179340 Problem Fibrocystic disease of right breast N60.11 Active 73716889 Problem Other chronic pain G89.29 Active 8 9027623 Problem Fibrocystic disease of left breast N60.12 Active 98749109 Problem Irritable bowel syndrome with constipation K58.1 Active 907281931 Problem Arthritis M19.90 Active 8162999 Problem Abnormal mammogram of right breast R92.8 Active 034978802 Problem Daytime somnolence R40.0 Active 1 66689476265 Problem Bipolar affective disorder, remission status unspecified F31.9 Active 10589976 Problem Chronic post-traumatic stress disorder (PTSD) F43. 12 Active 394749078 Problem Bipolar 1 disorder, depressed, moderate F31.32 Active 61360421 Problem Schizoaffective disorder, bipolar type F25.0 Active 17670684 Problem Irritable bowel syndrome with both constipation and diarrh ea K58.2 Active 44607378 Problem Slow transit constipation K59.01 Acti ve 76352943 Problem Essential tremor G25.0 Active 609 998869 Problem Acute non-recurrent maxillary sinusitis J01.00 Active 63284958 Problem Back pain M54.9 Active 900150497 Problem Bipolar 1 disorder, depressed, partial remission F 31.75 Active 98920120 Problem Attention deficit hyperactiv ity disorder (ADHD), predominantly inattentive type F90.0 Active 28476260 Problem Bipolar I disorder with depression F31.9 Active 39387562 Problem Panlobular emphysema J43.1 Active 5611699 Problem Akathisia G25.71 Active 658073046 Problem Mild persistent asthma without complication J45.30 Active 220865836 Problem Moderate persistent asthma without complication J4 5.40 Active [id number] ALLERGIES No Information ENCOUNTERS Encounter Location Date Diagnosis [place] [address] [facility] [id number] [address] [place] [phone] Mar, [place] [address] [address] [place] [id number] [place] [address] Mar, Diabetes E11.9 [place] [address] [facility] [id number] [address] [place] [address] Mar, [place] [address] [address] [place] [id number] [address] [place] [address] Feb, Daytime somnolence R40.0 and Anxiety disorder, unspecified F41.9 [place] [address] [facility] [id number] [address] [place] [phone] Feb, [place] [address] [facility] [id number] [address] [place] [address] Feb, [place] [address] [facility] [id number] [address] [place] [address] Feb, Tremors of nervous system R2 5.1 and Acute swimmer''s ear of right side H60.331 [place] [id number] [facility] [id number] [address] [place] [address] Feb, Cerebrovascular accident (CV A) due to occlusion of right cerebellar artery I63.541 and Hypertension I10 [facility] [address] [facility] [id number] [address] [place] [phone] 24 Feb, 2018 [facility] [address] [facility] [id number] [address] [place] [id number] 16 Feb, 2018 Cerebrovascular accident (CV A) due to occlusion of right cerebellar artery I63.541 [place] [address] [facility] [address] [id number] [id number] Feb, Hyponatremia E87.1 [facility] [address] [facility] [id number] [address] [place] [id number] Feb, [facility] [address] [facility] [id number] [address] [place] [address] Feb, Daytime somnolence R40.0 [facility] [address] [facility] [id number] [address] [place] [address] Feb, [facility] [address] [facility] [id number] [address] [place] [address] Jan, [facility] [address] [place] [id number] [address] [place] [address] Jan, [facility] [address] [place] [id number] [address] [place] [address] Jan, Chronic obstructive pulmonar y disease, unspecified J44.9 and Anxiety disorder, unspecified F41.9 [facility] [address] [place] [id number] [address] [place] [id number] 27 Jan, 2018 Hypertension I10 ; Fibromyal medhat M79.7 and Lumbago with sciatica, left side M54.42 [facility] [address] [facility] [id number] [address] [place] [phone] Jan, [facility] [address] [place] [id number] [address] [place] [phone] 20 Jan, 2018 Cerebrovascular accident (CV A) due to occlusion of right cerebellar artery I63.541 [facility] [address] [facility] [id number] [address] [place] [id number] 19 Jan, 2018 [place] [address] [id number] [address] [place] [id number] 13 Jan, 2018 Arthritis M19.90 [place] [address] [facility] [id number] [address] [place] [phone] 07 Jan, 2018 [place] [address] [address] [place] [id number] [address] [place] [phone] 04 Jan, 2018 Abnormal mammogram of right breast R92.8 [place] [address] [facility] [id number] [address] [place] [phone] Dec, Daytime somnolence R40.0 and Right otitis media with effusion H65.91 [place] [address] [address] [place] [id number] [address] [place] [address] Dec, [place] [address] [address] [place] [id number] [place] [address] Dec, Cerebrovascular accident (CV A) due to occlusion of right cerebellar artery I63.541 [place] [address] [address] [place] [id number] [address] [place] [address] Dec, [place] [address] [place] [id number] [address] [place] [phone] Dec, [place] [address] [place] [id number] [address] [place] [address] Nov, Bipolar 1 disorder, depresse d, partial remission F31.75 and Panic disorder with agoraphobia F40.01 [place] [address] [address] [place] [id number] [address] [place] [phone] Nov, Panlobular emphysema J43.1 [place] [address] [facility] [id number] [address] [place] [address] Nov, Cerebrovascular accident (CV A) due to occlusion of right cerebellar artery I63.541 and Acute non-recurrent maxillary sinusitis J01.00 [place] [address] [address] [place] [id number] [address] [place] [phone] Nov, Panlobular emphysema J43.1 [facility] [address] [id number] [address] [place] [address] Nov, [facility] [address] [id number] [address] [place] [address] Nov, [facility] [address] [id number] [address] [place] [address] Nov, [facility] [address] [id number] [address] [place] [address] Nov, [facility] [address] [id number] [address] [place] [address] Nov, [facility] [address] [facility] [id number] [address] [place] [phone] Nov, [facility] [address] [facility] [id number] [address] [place] [phone] Nov, [facility] [address] [facility] [id number] [address] [place] [address] Nov, Mild persistent asthma witho ut complication J45.30 and Irritable bowel syndrome with both constipation and diarrhea K58.2 [facility] [address] [facility] [id number] [address] [place] [address] Nov, [facility] [address] [facility] [id number] [address] [place] [phone] Oct, [facility] [address] [id number] [address] [place] [id number] Oct, [facility] [address] [facility] [id number] [address] [place] [address] Oct, Type 2 diabetes mellitus wit h diabetic neuropathy, unspecified whether [facility] insulin use E11.40 ; Diabetes E11.9 ; Slow transit constipation K59.01 ; Edema of both legs R60.0 and Dysfunction of right eustachian tube H69.81 [facility] [address] [id number] [address] [place] [phone] Oct, Frequent headaches R51 [facility] [address] [id number] [address] [place] [address] Oct, [facility] [address] [id number] [address] [place] [phone] Oct, [facility] [address] [id number] [address] [place] [phone] Oct, [facility] [address] [id number] [address] [place] [phone] Oct, [facility] [address] [id number] [address] [place] [address] Oct, [facility] [address] [id number] [address] [place] [phone] Oct, [facility] [address] [id number] [address] [place] [phone] Oct, [facility] [address] [id number] [address] [place] [phone] Oct, [facility] [address] [id number] [address] [place] [phone] September, Frequent headaches R51 [facility] [address] [facility] [id number] [address] [place] [phone] September, Bilateral otitis media with effusion H65.93 ; Dizziness R42 and Essential tremor G25.0 [facility] [address] [id number] [address] [place] [phone] September, Chronic obstructive pulmonar y disease, unspecified COPD type J44.9 [facility] [address] [facility] [id number] [address] [place] [phone] September, Chronic obstructive pulmonar y disease, unspecified COPD type J44.9 [facility] [address] [facility] [id number] [address] [place] [address] September, Migraine without aura and wi thout status migrainosus, not intractable G43.009 [facility] [address] [facility] [id number] [address] [place] [address] September, [facility] [address] [facility] [id number] [address] [place] [phone] September, [facility] [address] [facility] [id number] [address] [place] [phone] September, [facility] [address] [facility] [id number] [address] [place] [phone] September, Frequent headaches R51 [facility] [address] [facility] [id number] [address] [place] [address] Aug, [facility] [address] [place] [id number] [address] [place] [address] Aug, Breast mass, right N63.10 [place] [address] [place] [id number] [address] [place] [address] Aug, Breast lump N63.0 [facility] [address] [place] [id number] [address] [place] [phone] Aug, [facility] [address] [place] [id number] [address] [place] [address] Aug, Bipolar affective disorder, remission status unspecified F31.9 and Diabetes E11.9 [facility] [address] [place] [id number] [address] [place] [address] Aug, Diabetes E11.9 ; Schizoaffec tive disorder, bipolar type F25.0 ; Pharyngitis due to other organism J02.8 ; Panlobular emphysema J43.1 and Irritable bowel syndrome with both constipation and diarrhea K58.2 [facility] [address] [place] [id number] [address] [place] [address] Aug, Abnormal mammogram R92.8 [facility] [address] [place] [id number] [address] [place] [phone] Aug, [facility] [address] [facility] [id number] [address] [place] [address] Aug, Bipolar 1 disorder, depresse d, moderate F31.32 ; Panic disorder with agoraphobia F40.01 and Chronic post-traumatic stress disorder (PTSD) F43.12 [facility] [address] [facility] [id number] [address] [place] [phone] Aug, [facility] [address] [facility] [id number] [address] [place] [address] Aug, [facility] [address] [facility] [id number] [address] [place] [address] Aug, [facility] [address] [facility] [id number] [address] [place] [id number] Jul, [facility] [address] [facility] [id number] [address] [place] [address] Jul, Mild persistent asthma witho ut complication J45.30 [facility] [address] [facility] [id number] [address] [place] [address] Jul, Mild persistent asthma witho ut complication J45.30 [facility] [address] [facility] [id number] [address] [place] [address] 15 Jul, 2017 Bipolar affective disorder, remission status unspecified F31.9 ; Diabetes E11.9 and Irritable bowel syndrome with constipation K58.1 [facility] [address] [facility] [id number] [address] [place] [address] Jul, [facility] [address] [facility] [id number] [address] [place] [address] Jul, [facility] [address] [facility] [id number] [address] [place] [address] 08 Jul, 2017 Frequent headaches R51 [facility] [address] [facility] [id number] [address] [place] [id number] 07 Jul, 2017 [facility] [address] [facility] [id number] [address] [place] [address] Jul, [facility] [address] [facility] [id number] [address] [place] [phone] Jul, [facility] [address] [facility] [id number] [address] [place] [phone] Jul, Frequent headaches R51 ; Fib rocystic disease of left breast N60.12 ; Fibrocystic disease of right breast N60.11 and Diabetes E11.9 [facility] [address] [facility] [id number] [address] [place] [address] Jul, [facility] [address] [facility] [id number] [address] [place] [address] Jul, [facility] [address] [id number] 21 Jun, 2017 Exudative tonsillitis J03.90 [place] [address] [place] [id number] [address] [place] [phone] 20 Jun, 2017 [facility] [address] [place] [id number] [address] [place] [phone] 19 Jun, 2017 [facility] [address] [address] 15 Jun, 2017 Mild persistent asthma witho ut complication J45.30 ; Chronic obstructive pulmonary disease, unspecified COPD type J44.9 and Exudative tonsillitis J03.90 [place] [id number] [place] [address] 13 Jun, 2017 Encounter for immunization Z 23 [facility] [address] [facility] [id number] [address] [place] [address] Jun, [place] [address] [place] [id number] [address] [place] [address] Jun, [facility] [id number] [place] [address] 09 Jun, 2017 [facility] [address] [address] 06 Jun, 2017 Tonsillitis J03.90 [place] [address] [address] 05 Jun, 2017 [place] [address] [address] 03 Jun, 2017 Acute non-recurrent maxillar y sinusitis J01.00 [place] [address] [address] 02 Jun, 2017 [facility] [address] [address] May, [place] [address] [address] May, [place] [address] [address] May, GERD (gastroesophageal reflu x disease) K21.9 [place] [address] [address] May, Migraine without aura and wi thout status migrainosus, not intractable G43.009 [place] [address] [address] May, [place] [address] [address] May, [place] [address] [address] May, Panlobular emphysema J43.1 a nd Acute non-recurrent maxillary sinusitis J01.00 [place] [address] [id number] 04 May, 2017 Bipolar 1 disorder, depresse d, moderate F31.32 ; Panic disorder with agoraphobia F40.01 and Akathisia G25.71 [place] [address] [address] Apr, [facility] [address] [id number] [address] [place] [address] Apr, [facility] [address] [id number] [address] [place] [address] Apr, Acute non-recurrent maxillar y sinusitis J01.00 [facility] [address] [id number] [address] [place] [address] 07 Apr, 2017 Panlobular emphysema J43.1 [facility] [address] [id number] [address] [place] [id number] Apr, [facility] [address] [facility] [id number] [address] [place] [address] 04 Apr, 2017 Exudative tonsillitis J03.90 and Sore throat J02.9 [facility] [address] [facility] [id number] [address] [place] [id number] 17 Mar, 2017 [facility] [address] [id number] [address] [place] [phone] 15 Mar, 2017 Acute non-recurrent maxillar y sinusitis J01.00 [facility] [address] [facility] [facility] [id number] [address] [place] [id number] 13 Mar, 2017 [facility] [address] [facility] [facility] [id number] [address] [place] [phone] 09 Mar, 2017 Panlobular emphysema J43.1 a nd Diabetes E11.9 [facility] [address] [id number] [address] [place] [id number] 06 Mar, 2017 [facility] [address] [facility] [id number] [address] [place] [phone] 24 Feb, 2017 Wheezing R06.2 and Acute rec urrent pansinusitis J01.41 [facility] [address] [facility] [id number] [address] [place] [phone] Feb, [facility] [address] [id number] [address] [place] [phone] 16 Feb, 2017 Acute non-recurrent maxillar y sinusitis J01.00 [facility] [address] [id number] [address] [place] [phone] 16 Feb, 2017 Chronic obstructive pulmonar y disease, unspecified J44.9 [facility] [address] [id number] [address] [place] [id number] 02 Feb, 2017 Hypoxemia R09.02 and Chronic obstructive pulmonary disease, unspecified J44.9 [facility] [address] [id number] [address] [place] [phone] 28 Jan, 2017 Bipolar 1 disorder, depresse d, moderate F31.32 ; Panic disorder with agoraphobia F40.01 ; Chronic post-traumatic stress disorder (PTSD) F43.12 ; Diabetes E11.9 and Moderate persistent asthma without complication J45.40 [facility] [address] [facility] [facility] [id number] [address] [place] [phone] 22 Jan, 2017 [facility] [address] [id number] [address] [place] [phone] 19 Jan, 2017 Acute non-recurrent maxillar y sinusitis J01.00 [facility] [address] [id number] [address] [place] [phone] 18 Jan, 2017 [facility] [address] [id number] [address] [place] [phone] 18 Jan, 2017 [facility] [address] [id number] [address] [place] [phone] 12 Jan, 2017 Moderate persistent asthma w ithout complication J45.40 and Hypoxemia R09.02 [facility] [address] [id number] [address] [place] [phone] 11 Jan, 2017 Moderate persistent asthma w ithout complication J45.40 and Hypoxemia R09.02 [facility] [address] [id number] [address] [place] [id number] 11 Jan, 2017 [facility] [address] [id number] [address] [place] [phone] Dec, Acute non-recurrent maxillar y sinusitis J01.00 [facility] [address] [address] [id number] [address] [place] [address] Dec, Chronic obstructive pulmonar y disease, unspecified J44.9 [facility] [address] [id number] [address] [place] [phone] Dec, [facility] [address] [id number] [address] [place] [phone] Dec, Mild persistent asthma witho ut complication J45.30 and Other chronic pain G89.29 [facility] [address] [id number] [address] [place] [phone] Nov, [facility] [address] [id number] [address] [place] [address] Nov, Acute non-recurrent maxillar y sinusitis J01.00 [facility] [address] [id number] [address] [place] [phone] Nov, [facility] [address] [id number] [address] [place] [address] Nov, [facility] [address] [id number] [address] [place] [phone] Oct, [facility] [address] [id number] [address] [place] [address] Oct, Bipolar 1 disorder, depresse d, partial remission F31.75 ; Panic disorder with agoraphobia F40.01 and Chronic post-traumatic stress disorder (PTSD) F43.12 [facility] [address] [id number] [address] [place] [phone] Oct, Acute non-recurrent maxillar y sinusitis J01.00 [facility] [address] [id number] [address] [place] [phone] Oct, [facility] [address] [id number] [address] [place] [address] Oct, Diabetes E11.9 [facility] [address] [id number] [address] [place] [address] September, Diabetes E11.9 [facility] [address] [id number] [address] [place] [phone] September, Diabetes E11.9 and Sinus tac hycardia R00.0 [facility] [address] [id number] [address] [place] [address] September, [facility] [address] [id number] [address] [place] [phone] September, [facility] [address] [facility] [id number] [address] [place] [address] Aug, Diabetes E11.9 and Lumbago w ith sciatica, right side M54.41 [facility] [address] [facility] [id number] [address] [place] [phone] Aug, [facility] [address] [facility] [id number] [address] [place] [address] Jul, Bipolar 1 disorder, depresse d, moderate F31.32 ; Panic disorder with agoraphobia F40.01 and Chronic post-traumatic stress disorder (PTSD) F43.12 [facility] [address] [facility] [id number] [address] [place] [address] Jul, Sore throat J02.9 [facility] [address] [id number] [address] [place] [phone] Jul, [facility] [address] [facility] [id number] [address] [place] [phone] Jul, [facility] [address] [facility] [id number] [address] [place] [id number] Jul, [facility] [address] [facility] [id number] [address] [place] [phone] Jul, [facility] [address] [facility] [id number] [address] [place] [phone] Jul, Sore throat J02.9 and Pharyn gitis, unspecified etiology J02.9 [facility] [address] [facility] [id number] [address] [place] [phone] 27 Jun, 2016 [facility] [address] [facility] [id number] [address] [place] [phone] 23 Jun, 2016 Diabetes E11.9 [facility] [address] [id number] [address] [place] [address] Jun, [facility] [address] [id number] [address] [place] [phone] Jun, [facility] [address] [facility] [id number] [address] [place] [phone] Jun, [facility] [address] [place] [id number] [address] [place] [phone] Jun, [facility] [address] [facility] [id number] [address] [place] [address] Jun, [facility] [address] [place] [id number] [address] [place] [address] Jun, [facility] [address] [facility] [id number] [address] [place] [address] Jun, [facility] [id number] [place] [address] Jun, [facility] [address] [facility] [id number] [address] [place] [address] May, Diabetes E11.9 ; Other chron ic pain G89.29 ; Acute recurrent maxillary sinusitis J01.01 ; Bipolar I disorder with depression F31.9 and Anxiety disorder, unspecified F41.9 [facility] [address] [facility] [id number] [address] [place] [phone] May, [facility] [address] [place] [id number] [address] [place] [address] May, Diabetes E11.9 ; Bipolar I d isorder with depression F31.9 ; Anxiety disorder, unspecified F41.9 ; Other chronic pain G89.29 and Acute recurrent maxillary sinusitis J01.01 [place] [address] [id number] [address] [place] [address] May, [place] [address] [facility] [id number] [address] [place] [address] May, Attention deficit hyperactiv ity disorder (ADHD), predominantly inattentive type F90.0 [place] [address] [id number] [address] [place] [phone] May, [place] [address] [facility] [id number] [address] [place] [address] Apr, Attention deficit hyperactiv ity disorder (ADHD), predominantly inattentive type F90.0 and Non-seasonal allergic rhinitis due to other allergic trigger J30.89 [place] [address] [id number] [address] [place] [address] 15 Apr, 2016 Bipolar 1 disorder, depresse d, moderate F31.32 ; Panic disorder with agoraphobia F40.01 and Chronic post-traumatic stress disorder (PTSD) F43.12 [place] [address] [facility] [id number] [address] [place] [address] 06 Apr, 2016 Dental examination Z01.20 [place] [address] [facility] [id number] [address] [place] [phone] Mar, [place] [address] [id number] [address] [place] [address] Mar, [place] [address] [facility] [facility] [id number] [address] [place] [address] Mar, Bipolar I disorder with depr ession F31.9 and Anxiety disorder, unspecified F41.9 [place] [address] [facility] [id number] [address] [place] [id number] 08 Mar, 2016 Panic disorder with agorapho syd F40.01 ; Bipolar 1 disorder, depressed, moderate F31.32 and Chronic post-traumatic stress disorder (PTSD) F43.12 [place] [address] [place] [id number] [place] [address] Mar, [place] [address] [place] [id number] [address] [place] [address] Mar, Dental caries K02.9 [place] [address] [place] [id number] [place] [address] 24 Feb, 2016 Lumbago with sciatica, left side M54.42 ; Lumbago with sciatica, right side M54.41 and Other chronic pain G89.29 [place] [address] [place] [id number] [place] [address] 17 Feb, 2016 [place] [address] [place] [id number] [place] [address] Feb, [place] [address] [address] Feb, Bipolar I disorder with depr ession F31.9 ; PTSD (post-traumatic stress disorder) F43.10 and Mood disorder F39 [place] [address] [place] [id number] [address] [place] [address] Feb, [place] [address] [place] [id number] [place] [address] Feb, Dental examination Z01.20 [place] [address] [place] [id number] [address] [place] [address] 07 Feb, 2016 [facility] [address] [place] [id number] [address] [place] [phone] 03 Feb, 2016 Acute bronchitis, unspecifie d organism J20.9 [place] [address] [facility] [id number] [address] [place] [address] Jan, Mood disorder F39 ; Migraine without aura and without status migrainosus, not intractable G43.009 ; Irritable bowel syndrome, unspecified type K58.9 ; Diabetes E11.9 and Encounter for immunization Z23 [facility] [address] [facility] [id number] [address] [place] [address] Jan, [facility] [address] [facility] [id number] [address] [place] [address] Jan, [facility] [address] [facility] [id number] [address] [place] [phone] Jan, [facility] [address] [facility] [id number] [address] [place] [address] Jan, [facility] [address] [place] [id number] [place] [address] Jan, [facility] [address] [facility] [id number] [address] [place] [phone] Dec, Bipolar I disorder with depr ession F31.9 ; PTSD (post-traumatic stress disorder) F43.10 and Panic disorder with agoraphobia F40.01 [facility] [address] [place] [id number] [address] [place] [phone] Dec, Chronic obstructive pulmonar y disease, unspecified COPD type J44.9 ; Tremor R25.1 and Anxiety F41.9 [facility] [address] [place] [id number] [address] [place] [address] Dec, [facility] [address] [place] [id number] [address] [place] [address] Nov, Tremors of nervous system R2 5.1 and Cramping of feet R25.2 [facility] [address] [facility] [id number] [address] [place] [address] Nov, [facility] [address] [place] [id number] [address] [place] [address] Nov, [facility] [address] [place] [id number] [address] [place] [address] Oct, Chronic obstructive pulmonar y disease, unspecified J44.9 [facility] [address] [id number] [address] [place] [address] Oct, [facility] [address] [facility] [id number] [address] [place] [address] Oct, Tremor R25.1 [facility] [address] [facility] [id number] [address] [place] [address] Oct, Bipolar I disorder with depr ession F31.9 ; Diabetes E11.9 ; PTSD (post-traumatic stress disorder) F43.10 and Panic disorder with agoraphobia F40.01 [place] [address] [facility] [id number] [address] [place] [address] Oct, Mood disorder F39 [place] [address] [facility] [id number] [address] [place] [address] September, [place] [address] [place] [id number] [address] [place] [address] September, Diabetes E11.9 ; Bipolar I d isorder with depression F31.9 ; PTSD (post-traumatic stress disorder) F43.10 and Panic disorder with agoraphobia F40.01 [place] [address] [facility] [id number] [address] [place] [address] September, Mood disorder F39 ; Schizoaf fective disorder, unspecified type F25.9 ; Arthritis M19.90 ; Tremor R25.1 ; Acute non-recurrent frontal sinusitis J01.10 and Blood in stool K92.1 [facility] [address] [id number] [address] [place] [address] September, [place] [address] [facility] [id number] [address] [place] [address] September, Chronic obstructive pulmonar y disease, unspecified J44.9 [facility] [address] [facility] [id number] [address] [place] [address] September, Diabetes E11.9 [place] [address] [facility] [id number] [address] [place] [address] Aug, Other bipolar disorder F31.8 9 and Anxiety disorder, unspecified F41.9 [facility] [address] [id number] [address] [place] [address] Aug, [facility] [address] [id number] [address] [place] [address] Aug, Diabetes E11.9 [facility] [address] [id number] [address] [place] [phone] 18 Aug, 2015 [facility] [address] [id number] [address] [place] [phone] 14 Aug, 2015 Diabetes E11.9 ; Fatigue R53 .83 and Dizziness R42 [facility] [address] [id number] [address] [place] [phone] 13 Aug, 2015 Other bipolar disorder F31.8 9 [facility] [address] [id number] [address] [place] [phone] 07 Aug, 2015 Generalized anxiety disorder F41.1 [facility] [address] [id number] [address] [place] [phone] 07 Aug, 2015 Other bipolar disorder F31.8 9 and Anxiety disorder, unspecified F41.9 [facility] [address] [id number] [address] [place] [address] Aug, [facility] [address] [id number] [address] [place] [address] Jul, [facility] [address] [id number] [address] [place] [id number] 24 Jul, 2015 [facility] [address] [id number] [address] [place] [phone] Jul, Bronchitis J40 [facility] [address] [id number] [address] [place] [phone] Jul, Anxiety disorder F41.9 [facility] [address] [id number] [address] [place] [address] Jul, Other bipolar disorder F31.8 9 and Anxiety disorder, unspecified F41.9 [facility] [address] [facility] [id number] [address] [place] [address] Jul, Other bipolar disorder F31.8 9 and Fibromyalgia M79.7 [facility] [address] [facility] [id number] [address] [place] [address] Jul, [facility] [address] [facility] [id number] [address] [place] [phone] Jul, [facility] [address] [facility] [id number] [address] [place] [address] Jul, [facility] [address] [place] [id number] [address] [place] [address] Jul, Other bipolar disorder F31.8 9 and Anxiety disorder, unspecified F41.9 [facility] [address] [facility] [facility] [id number] [address] [place] [id number] Jun, GERD (gastroesophageal reflu x disease) K21.9 [facility] [address] [facility] [id number] [address] [place] [phone] Jun, [facility] [address] [facility] [id number] [address] [place] [address] May, [facility] [address] [place] [id number] [address] [place] [address] May, Diabetes E11.9 ; Back pain M 54.9 ; GERD (gastroesophageal reflux disease) K21.9 ; Hypertension I10 and Peripheral neuropathy G62.9 [facility] [address] [facility] [id number] [address] [place] [phone] Mar, [facility] [address] [place] [id number] [address] [place] [phone] Mar, [facility] [address] [facility] [id number] [address] [place] [address] Mar, Acute sinusitis J01.90 and O titis media, left H66.92 [facility] [address] [facility] [facility] [id number] [address] [place] [phone] Feb, [facility] [address] [facility] [facility] [id number] [address] [place] [phone] Feb, [facility] [address] [facility] [facility] [id number] [address] [place] [phone] Feb, [facility] [address] [facility] [id number] [address] [place] [phone] Feb, [facility] [address] [facility] [id number] [address] [place] [phone] Jan, [facility] [address] [facility] [id number] [address] [place] [address] Jan, Diabetes 250.00 and Back higinio n 724.5 [facility] [address] [facility] [facility] [id number] [address] [place] [phone] Jan, [facility] [address] [facility] [facility] [id number] [address] [place] [address] Dec, Diabetes 250.00 ; Benign ess ential hypertension 401.1 and Allergic rhinitis 477.9 [facility] [address] [facility] [id number] [address] [place] [id number] Dec, [facility] [address] [facility] [facility] [id number] [address] [place] [phone] Dec, [facility] [address] [facility] [facility] [id number] [address] [place] [phone] Dec, Psychosis 298.9 [facility] [address] [facility] [id number] [address] [place] [phone] Dec, Medication side effect 995.2 0 and Generalized anxiety disorder 300.02 [facility] [address] [facility] [id number] [address] [place] [address] Dec, Acquired cognitive dysfuncti on 294.9 [facility] [address] [id number] [address] [place] [id number] Dec, [facility] [address] [id number] [address] [place] [id number] Dec, Unspecified myalgia and myos itis 729.1 and Generalized anxiety disorder 300.02 [facility] [address] [id number] [address] [place] [phone] Nov, [facility] [address] [id number] [address] [place] [phone] Nov, [facility] [address] [id number] [address] [place] [phone] Nov, [facility] [address] [id number] [address] [place] [id number] Nov, Upper respiratory infection 465.9 and Chronic airway obstruction, not elsewhere classified 496 [facility] [address] [id number] [address] [place] [id number] Nov, Hyponatremia 276.1 [facility] [address] [id number] [address] [place] [id number] Oct, [facility] [address] [id number] [address] [place] [phone] Oct, [facility] [address] [facility] [id number] [address] [place] [id number] Oct, [facility] [address] [id number] [address] [place] [phone] Oct, [facility] [address] [id number] [address] [place] [id number] Oct, Hyponatremia 276.1 [facility] [address] [id number] [address] [place] [id number] Oct, [facility] [address] [facility] [id number] [address] [place] [id number] Oct, [facility] [address] [facility] [id number] [address] [place] [id number] Oct, Generalized anxiety disorder 300.02 [facility] [address] [id number] [address] [place] [id number] Oct, Generalized anxiety disorder 300.02 and Diabetes 250.00 [facility] [address] [id number] [address] [place] [id number] 14 Aug, 2014 [facility] [address] [id number] [address] [place] [id number] Aug, [facility] [address] [id number] [address] [place] [id number] Jul, [facility] [address] [id number] [address] [place] [id number] Jul, [facility] [address] [id number] [address] [place] [phone] Jun, [facility] [address] [id number] [address] [place] [id number] Jun, [facility] [address] [id number] [address] [place] [id number] Jun, [facility] [address] [id number] [address] [place] [id number] Jun, [facility] [address] [id number] [address] [place] [phone] Jun, [facility] [address] [id number] [address] [place] [id number] May, [facility] [address] [id number] [address] [place] [phone] May, [facility] [address] [id number] 04 [place] [id number] Apr, [facility] [address] [id number] [address] [place] [address] Apr, [facility] [address] [id number] [address] [place] [id number] Apr, [facility] [address] [id number] [address] [place] [address], [place] [address] Apr, [facility] [address] [id number] [address] [place] [address], [place] [address] Apr, [facility] [address] [id number] [address] [place] [address], [place] [address] Apr, [facility] [address] [id number] [address] [place] [address], [place] [address] Apr, [facility] [address] [id number] [address] [place] [address], [place] [address] Apr, [facility] [address] [id number] [address] [place] [address], [place] [address] Feb, [facility] [address] [id number] [address] [place] [address], [place] [address] Feb, [facility] [address] [id number] [address] [place] [address], [place] [address] Jan, [facility] [address] [id number] [address] [place] [address], [place] [address] Jan, [facility] [address] [id number] [address] [place] [address], [place] [address] Dec, [facility] [address] [id number] [address] [place] [address], [place] [address] Dec, [facility] [address] [id number] [address] [place] [address], [place] [address] Dec, [facility] [address] [id number] [address] [place] [address], [place] [address] Nov, [facility] [address] [id number] [address] [place] [address], [place] [address] Nov, [facility] [address] [id number] [address] [place] [address], [place] [address] Nov, [facility] [address] [id number] [address] [place] [address], [place] [address] Oct, [facility] [address] [id number] [address] [place] [address], [place] [address] Oct, [facility] [address] [id number] [address] [place] [address], [place] [address] Oct, [facility] [address] [id number] [address] [place] [address], [place] [address] September, [facility] [address] [id number] [address] [place] [address], [place] [address] September, [facility] [address] [id number] [address] [place] [address], [place] [address] September, [facility] [address] [id number] [address] [place] [address], [place] [address] Aug, [facility] [address] [id number] [address] [place] [address], [place] [address] Aug, [facility] [address] [id number] [address] [place] [address], [place] [address] Aug, [facility] [address] [id number] [address] [place] [address], [place] [address] 16 Aug, 2011 [facility] [address] [id number] [address] [place] [address], [place] [address] Jul, [facility] [address] [id number] [address] [place] [address], [place] [address] 21 Jun, 2011 [facility] [address] [id number] [address] [place] [address], [place] [address] 14 Jun, 2011 [facility] [address] [id number] [address] [place] [address], [place] [address] 13 Jun, 2011 [facility] [address] [id number] [address] [place] [address], [place] [address] 07 Jun, 2011 [facility] [address] [id number] [address] [place] [address], [place] [address] Jun, [facility] [address] [id number] [address] [place] [address], [place] [address] May, [facility] [address] [id number] [address] [place] [address], [place] [address] May, [facility] [address] [id number] [address] [place] [address], [place] [address] May, [facility] [address] [id number] [address] [place] [address] May, [facility] [address] [id number] [address] [place] [address], [place] [address] Apr, [facility] [address] [id number] [address] [place] [address], [place] [address] Apr, [facility] [address] [id number] [address] [place] [address], [place] [address] Apr, [facility] [address] [id number] [address] [place] [address], [place] [address] Mar, [facility] [address] [id number] [address] [place] [address] Mar, [facility] [address] [id number] [address] [place] [address], [place] [address] Mar, [facility] [address] [id number] [address] [place] [address] Feb, [facility] [address] [id number] [address] [place] [address] Feb, [facility] [address] [id number] [address] [place] [address], [place] [address] Feb, [facility] [address] [id number] [address] [place] [address] Nov, [facility] [address] [id number] [address] [place] [address], [place] [address] September, [facility] [address] [id number] [address] [place] [address] Aug, [facility] [address] [id number] [address] [place] [address] 14 Jul, 2010 [facility] [address] [id number] [address] [place] [address] May, [facility] [address] [id number] [address] [place] [address] Apr, [facility] [address] [id number] [address] [place] [address] Apr, [facility] [address] [id number] [address] [place] [address] Apr, [facility] [address] [id number] [address] [place] [address] Apr, [facility] [address] [id number] [address] [place] [address] Apr, IMMUNIZATIONS No Known Immunizations SOCIAL HISTORY Never Assessed REASON FOR VISIT pen needle correction PLAN OF CARE VITAL SIGNS MEDICATIONS Medication Instructions Dosage Frequency Start Date End Date Duration S tatus Insulin Pen Needle 32G X 6 MM subcutaneously Once a day use with pre-filled syringes 24h Oct, Active RESULTS No Results PROCEDURES [...]
--- OUTSIDE RECORDS SUMMARY | 2019-07-17 10:50 | XMS REPORT ---
Author Author Sujey GANDHI Organization [facility] Address [address] [place] [address] Care Team Providers Care Feller Machine Operator Name Role Phone WHIT GANDHI Unavailable PROBLEMS Type Condition ICD9-CM Code [id number] Code Onset Dates Condition S tatus SNOMED Code Problem Diabetes E11.9 Active 14959110 Problem GERD (gastroesophageal reflux disease) K21.9 Active 698860117 Problem Anxiety disorder, unspecified F41.9 Active 763687523 Problem Hypertension I10 Active 4084787 3 Problem Other bipolar disorder F31.89 Active 30040379 Problem Fibromyalgia M79.7 Active 1930250 7 Problem Panic disorder with agoraphobia F40.01 Active 62657481 Problem Chronic obstructive pulmonary disease, unspecified J44.9 Active 23952149 Problem Lumbago with sciatica, left side M54.42 Active 873321283 Problem Migraine without aura and without status migrain osus, not intractable G43.009 Active 194160963 Problem Lumbago with sciatica, right side M54.41 Active 722926061 Problem Fibrocystic disease of right breast N60.11 Active 23248547 Problem Other chronic pain G89.29 Active 8 1757550 Problem Fibrocystic disease of left breast N60.12 Active 42846239 Problem Irritable bowel syndrome with constipation K58.1 Active 078480316 Problem Arthritis M19.90 Active 1574025 Problem Abnormal mammogram of right breast R92.8 Active 761096397 Problem Daytime somnolence R40.0 Active 1 69002722759 Problem Bipolar affective disorder, remission status unspecified F31.9 Active 36748476 Problem Chronic post-traumatic stress disorder (PTSD) F43. 12 Active 519824965 Problem Bipolar 1 disorder, depressed, moderate F31.32 Active 95783919 Problem Schizoaffective disorder, bipolar type F25.0 Active 27536520 Problem Irritable bowel syndrome with both constipation and diarrh ea K58.2 Active 75557211 Problem Slow transit constipation K59.01 Acti ve 99704318 Problem Essential tremor G25.0 Active 609 587235 Problem Acute non-recurrent maxillary sinusitis J01.00 Active 36542152 Problem Back pain M54.9 Active 175560388 Problem Bipolar 1 disorder, depressed, partial remission F 31.75 Active 18707632 Problem Attention deficit hyperactiv ity disorder (ADHD), predominantly inattentive type F90.0 Active 96978167 Problem Bipolar I disorder with depression F31.9 Active 30775177 Problem Panlobular emphysema J43.1 Active 8961498 Problem Akathisia G25.71 Active 119301506 Problem Mild persistent asthma without complication J45.30 Active 307261681 Problem Moderate persistent asthma without complication J4 5.40 Active 167015971 ALLERGIES No Information ENCOUNTERS Encounter Location Date Diagnosis [place] [address] [address] Mar, [place] [address] [id number] Mar, [place] [address] [address] Feb, Daytime somnolence R40.0 and Anxiety disorder, unspecified F41.9 [place] [address] [address] Feb, [place] [address] [address] Feb, [place] [address] [id number] Feb, Tremors of nervous system R2 5.1 and Acute swimmer''s ear of right side H60.331 [place] [address] [address] Feb, Cerebrovascular accident (CV A) due to occlusion of right cerebellar artery I63.541 and Hypertension I10 [place] [address] [address] [place] [id number] [address] [place] [id number] Feb, [place] [address] [address] [facility] [id number] [address] [place] [id number] 16 Feb, 2018 Cerebrovascular accident (CV A) due to occlusion of right cerebellar artery I63.541 [facility] [address] [id number] [id number] Feb, Hyponatremia E87.1 [facility] [address] [facility] [id number] [address] [place] [id number] Feb, [facility] [address] [facility] [id number] [address] [place] [id number] Feb, Daytime somnolence R40.0 [facility] [address] [facility] [id number] [address] [place] [id number] Feb, [facility] [address] [facility] [id number] [address] [place] [id number] 28 Jan, 2018 [facility] [address] [place] [id number] [address] [place] [id number] 28 Jan, 2018 [facility] [address] [place] [id number] [address] [place] [id number] 27 Jan, 2018 Chronic obstructive pulmonar y disease, unspecified J44.9 and Anxiety disorder, unspecified F41.9 [facility] [address] [facility] [id number] [address] [place] [id number] 27 Jan, 2018 Hypertension I10 ; Fibromyal medhat M79.7 and Lumbago with sciatica, left side M54.42 [facility] [address] [facility] [id number] [address] [place] [id number] Jan, [facility] [address] [facility] [id number] [address] [place] [id number] 20 Jan, 2018 Cerebrovascular accident (CV A) due to occlusion of right cerebellar artery I63.541 [facility] [address] [facility] [id number] [address] [place] [id number] 19 Jan, 2018 [facility] [address] [place] [id number] [address] [place] [id number] 13 Jan, 2018 Arthritis M19.90 [facility] [address] [id number] [address] [place] [id number] Jan, [place] [address] [facility] [id number] [address] [place] [id number] Jan, Abnormal mammogram of right breast R92.8 [place] [address] [address] [facility] [id number] [address] [place] [id number] Dec, Daytime somnolence R40.0 and Right otitis media with effusion H65.91 [place] [address] [id number] [address] [place] [id number] Dec, [place] [address] [address] [facility] [id number] [address] [place] [id number] Dec, Cerebrovascular accident (CV A) due to occlusion of right cerebellar artery I63.541 [place] [address] [address] [facility] [id number] [address] [place] [id number] Dec, [place] [address] [id number] [address] [place] [id number] Dec, [place] [address] [address] [facility] [id number] [address] [place] [id number] Nov, Bipolar 1 disorder, depresse d, partial remission F31.75 and Panic disorder with agoraphobia F40.01 [place] [address] [address] [facility] [id number] [address] [place] [id number] Nov, Panlobular emphysema J43.1 [place] [address] [id number] [address] [place] [id number] Nov, Cerebrovascular accident (CV A) due to occlusion of right cerebellar artery I63.541 and Acute non-recurrent maxillary sinusitis J01.00 [place] [address] [address] [facility] [id number] [address] [place] [id number] Nov, Panlobular emphysema J43.1 [place] [address] [address] [facility] [id number] [address] [place] [id number] Nov, [facility] [address] [id number] [address] [place] [id number] Nov, [facility] [address] [id number] [address] [place] [id number] Nov, [facility] [address] [id number] [address] [place] [id number] Nov, [facility] [address] [id number] [address] [place] [id number] Nov, [facility] [address] [id number] [address] [place] [id number] Nov, [facility] [address] [id number] [address] [place] [id number] Nov, [facility] [address] [facility] [id number] [address] [place] [id number] Nov, Mild persistent asthma witho ut complication J45.30 and Irritable bowel syndrome with both constipation and diarrhea K58.2 [facility] [address] [facility] [id number] [address] [place] [id number] Nov, [facility] [address] [facility] [id number] [address] [place] [id number] Oct, [facility] [address] [facility] [id number] [address] [place] [id number] Oct, [facility] [address] [facility] [id number] [address] [place] [id number] Oct, Type 2 diabetes mellitus wit h diabetic neuropathy, unspecified whether long-term insulin use E11.40 ; Diabetes E11.9 ; Slow transit constipation K59.01 ; Edema of both legs R60.0 and Dysfunction of right eustachian tube H69.81 [facility] [address] [id number] [address] [place] [id number] Oct, Frequent headaches R51 [facility] [address] [id number] [address] [place] [id number] Oct, [facility] [address] [id number] [address] [place] [id number] Oct, [facility] [address] [id number] [address] [place] [id number] Oct, [facility] [address] [id number] [address] [place] [id number] Oct, [facility] [address] [id number] [address] [place] [id number] Oct, [facility] [address] [facility] [id number] [address] [place] [id number] Oct, [facility] [address] [facility] [id number] [address] [place] [id number] Oct, [facility] [address] [facility] [id number] [address] [place] [id number] Oct, [facility] [address] [facility] [id number] [address] [place] [id number] September, Frequent headaches R51 [facility] [address] [facility] [id number] [address] [place] [id number] September, Bilateral otitis media with effusion H65.93 ; Dizziness R42 and Essential tremor G25.0 [facility] [address] [facility] [id number] [address] [place] [id number] September, Chronic obstructive pulmonar y disease, unspecified COPD type J44.9 [facility] [address] [facility] [id number] [address] [place] [id number] September, Chronic obstructive pulmonar y disease, unspecified COPD type J44.9 [facility] [address] [facility] [id number] [address] [place] [id number] September, Migraine without aura and wi thout status migrainosus, not intractable G43.009 [facility] [address] [facility] [id number] [address] [place] [id number] September, [facility] [address] [id number] [address] [place] [id number] September, [facility] [address] [id number] [address] [place] [id number] September, [facility] [address] [id number] [address] [place] [id number] September, Frequent headaches R51 [facility] [address] [id number] [address] [place] [id number] Aug, [facility] [address] [id number] [address] [place] [id number] Aug, Breast mass, right N63.10 [facility] [address] [id number] [address] [place] [id number] Aug, Breast lump N63.0 [facility] [address] [facility] [id number] [address] [place] [id number] Aug, [facility] [address] [facility] [id number] [address] [place] [id number] Aug, Bipolar affective disorder, remission status unspecified F31.9 and Diabetes E11.9 [facility] [address] [facility] [id number] [address] [place] [id number] Aug, Diabetes E11.9 ; Schizoaffec tive disorder, bipolar type F25.0 ; Pharyngitis due to other organism J02.8 ; Panlobular emphysema J43.1 and Irritable bowel syndrome with both constipation and diarrhea K58.2 [facility] [address] [id number] [address] [place] [id number] Aug, Abnormal mammogram R92.8 [facility] [address] [facility] [id number] [address] [place] [id number] Aug, [facility] [address] [facility] [id number] [address] [place] [id number] Aug, Bipolar 1 disorder, depresse d, moderate F31.32 ; Panic disorder with agoraphobia F40.01 and Chronic post-traumatic stress disorder (PTSD) F43.12 [facility] [address] [facility] [id number] [address] [place] [id number] Aug, [facility] [address] [facility] [id number] [address] [place] [id number] Aug, [facility] [address] [facility] [id number] [address] [place] [id number] Aug, [facility] [address] [facility] [id number] [address] [place] [id number] Jul, [facility] [address] [facility] [id number] [address] [place] [id number] Jul, Mild persistent asthma witho ut complication J45.30 [facility] [address] [facility] [id number] [address] [place] [id number] Jul, Mild persistent asthma witho ut complication J45.30 [facility] [address] [facility] [id number] [address] [place] [id number] Jul, Bipolar affective disorder, remission status unspecified F31.9 ; Diabetes E11.9 and Irritable bowel syndrome with constipation K58.1 [facility] [address] [facility] [id number] [address] [place] [id number] Jul, [facility] [address] [facility] [id number] [address] [place] [id number] Jul, [facility] [address] [facility] [id number] [address] [place] [id number] Jul, Frequent headaches R51 [facility] [address] [facility] [id number] [address] [place] [id number] 07 Jul, 2017 [facility] [address] [facility] [id number] [address] [place] [id number] Jul, [facility] [address] [facility] [id number] [address] [place] [id number] Jul, [facility] [address] [place] [id number] [address] [place] [id number] 05 Jul, 2017 Frequent headaches R51 ; Fib rocystic disease of left breast N60.12 ; Fibrocystic disease of right breast N60.11 and Diabetes E11.9 [facility] [address] [place] [id number] [address] [place] [id number] Jul, [facility] [address] [id number] Jul, [facility] [address] [id number] 21 Jun, 2017 Exudative tonsillitis J03.90 [place] [address] [address] 20 Jun, 2017 [place] [address] [id number] 19 Jun, 2017 [facility] [address] [place] [id number] [address] [place] [id number] 15 Jun, 2017 Mild persistent asthma witho ut complication J45.30 ; Chronic obstructive pulmonary disease, unspecified COPD type J44.9 and Exudative tonsillitis J03.90 [place] [address] [address] [place] [id number] [address] [place] [id number] 13 Jun, 2017 Encounter for immunization Z 23 [place] [address] [address] [place] [id number] [address] [place] [id number] Jun, [place] [address] [place] [id number] [address] [place] [id number] Jun, [place] [address] [address] 09 Jun, 2017 [facility] [id number] [place] [id number] 06 Jun, 2017 Tonsillitis J03.90 [place] [address] [address] [place] [id number] [address] [place] [id number] 05 Jun, 2017 [facility] [address] [place] [id number] [place] [id number] 03 Jun, 2017 Acute non-recurrent maxillar y sinusitis J01.00 [facility] [address] [place] [id number] [address] [place] [id number] 02 Jun, 2017 [facility] [address] [place] [id number] [place] [id number] May, [facility] [address] [place] [id number] [place] [id number] May, [facility] [address] [address] May, GERD (gastroesophageal reflu x disease) K21.9 [facility] [address] [address] May, Migraine without aura and wi thout status migrainosus, not intractable G43.009 [facility] [address] [address] May, [facility] [address] [id number] May, [facility] [address] [address] May, Panlobular emphysema J43.1 a nd Acute non-recurrent maxillary sinusitis J01.00 [facility] [address] [id number] 04 May, 2017 Bipolar 1 disorder, depresse d, moderate F31.32 ; Panic disorder with agoraphobia F40.01 and Akathisia G25.71 [facility] [address] [place] [id number] [address] [place] [id number] Apr, [facility] [address] [id number] 14 Apr, 2017 [facility] [address] [id number] [address] [place] [id number] 13 Apr, 2017 Acute non-recurrent maxillar y sinusitis J01.00 [facility] [address] [id number] [address] [place] [id number] 07 Apr, 2017 Panlobular emphysema J43.1 [facility] [address] [id number] [address] [place] [id number] 04 Apr, 2017 [facility] [address] [id number] [address] [place] [id number] 04 Apr, 2017 Exudative tonsillitis J03.90 and Sore throat J02.9 [facility] [address] [id number] [address] [place] [id number] 17 Mar, 2017 [facility] [address] [facility] [id number] [address] [place] [id number] 15 Mar, 2017 Acute non-recurrent maxillar y sinusitis J01.00 [facility] [address] [id number] [address] [place] [id number] 13 Mar, 2017 [facility] [address] [id number] [address] [place] [id number] 09 Mar, 2017 Panlobular emphysema J43.1 a nd Diabetes E11.9 [facility] [address] [id number] [address] [place] [id number] 06 Mar, 2017 [facility] [address] [id number] [address] [place] [id number] Feb, Wheezing R06.2 and Acute rec urrent pansinusitis J01.41 [facility] [address] [id number] [address] [place] [id number] Feb, [facility] [address] [facility] [id number] [address] [place] [id number] Feb, Acute non-recurrent maxillar y sinusitis J01.00 [place] [address] [id number] [address] [place] [id number] 16 Feb, 2017 Chronic obstructive pulmonar y disease, unspecified J44.9 [facility] [address] [facility] [id number] [address] [place] [id number] 02 Feb, 2017 Hypoxemia R09.02 and Chronic obstructive pulmonary disease, unspecified J44.9 [facility] [address] [facility] [id number] [address] [place] [id number] 28 Jan, 2017 Bipolar 1 disorder, depresse d, moderate F31.32 ; Panic disorder with agoraphobia F40.01 ; Chronic post-traumatic stress disorder (PTSD) F43.12 ; Diabetes E11.9 and Moderate persistent asthma without complication J45.40 [facility] [address] [facility] [id number] [address] [place] [id number] 22 Jan, 2017 [facility] [address] [facility] [id number] [address] [place] [id number] 19 Jan, 2017 Acute non-recurrent maxillar y sinusitis J01.00 [facility] [address] [id number] [address] [place] [id number] 18 Jan, 2017 [facility] [address] [facility] [id number] [address] [place] [id number] 18 Jan, 2017 [facility] [address] [facility] [id number] [address] [place] [id number] Jan, Moderate persistent asthma w [facility] complication J45.40 and Hypoxemia R09.02 [facility] [address] [id number] [address] [place] [id number] 11 Jan, 2017 Moderate persistent asthma w [facility] complication J45.40 and Hypoxemia R09.02 [facility] [address] [facility] [id number] [address] [place] [id number] Jan, [facility] [address] [facility] [id number] [address] [place] [id number] Dec, Acute non-recurrent maxillar y sinusitis J01.00 [facility] [address] [id number] [address] [place] [id number] Dec, Chronic obstructive pulmonar y disease, unspecified J44.9 [facility] [address] [id number] [address] [place] [id number] Dec, [facility] [address] [facility] [id number] [address] [place] [id number] Dec, Mild persistent asthma witho ut complication J45.30 and Other chronic pain G89.29 [facility] [address] [id number] [address] [place] [id number] Nov, [facility] [address] [id number] [address] [place] [id number] Nov, Acute non-recurrent maxillar y sinusitis J01.00 [facility] [address] [facility] [id number] [address] [place] [id number] Nov, [facility] [address] [facility] [id number] [address] [place] [id number] Nov, [facility] [address] [facility] [id number] [address] [place] [id number] Oct, [facility] [address] [facility] [id number] [address] [place] [id number] Oct, Bipolar 1 disorder, depresse d, partial remission F31.75 ; Panic disorder with agoraphobia F40.01 and Chronic post-traumatic stress disorder (PTSD) F43.12 [facility] [address] [id number] [address] [place] [id number] Oct, Acute non-recurrent maxillar y sinusitis J01.00 [facility] [address] [id number] [address] [place] [id number] Oct, [facility] [address] [facility] [id number] [address] [place] [id number] Oct, Diabetes E11.9 [facility] [address] [facility] [id number] [address] [place] [id number] September, Diabetes E11.9 [facility] [address] [id number] [address] [place] [id number] September, Diabetes E11.9 and Sinus tac hycardia R00.0 [facility] [address] [id number] [address] [place] [id number] September, [facility] [address] [facility] [id number] [address] [place] [id number] September, [facility] [address] [id number] [address] [place] [id number] Aug, Diabetes E11.9 and Lumbago w ith sciatica, right side M54.41 [facility] [address] [facility] [id number] [address] [place] [id number] Aug, [facility] [address] [facility] [id number] [address] [place] [id number] Jul, Bipolar 1 disorder, depresse d, moderate F31.32 ; Panic disorder with agoraphobia F40.01 and Chronic post-traumatic stress disorder (PTSD) F43.12 [facility] [address] [id number] [address] [place] [id number] Jul, Sore throat J02.9 [facility] [address] [facility] [id number] [address] [place] [id number] Jul, [facility] [address] [facility] [id number] [address] [place] [id number] Jul, [facility] [address] [facility] [id number] [address] [place] [phone] Jul, [facility] [address] [facility] [id number] [address] [place] [id number] Jul, [facility] [address] [facility] [id number] [address] [place] [id number] Jul, Sore throat J02.9 and Pharyn gitis, unspecified etiology J02.9 [facility] [address] [id number] [address] [place] [id number] Jun, [facility] [address] [id number] [address] [place] [id number] Jun, Diabetes E11.9 [facility] [address] [id number] [address] [place] [address] [id number] Jun, [facility] [address] [id number] [address] [place] [id number] Jun, [facility] [address] [id number] [address] [place] [id number] Jun, [facility] [address] [id number] [address] [place] [id number] Jun, [facility] [address] [facility] [id number] [address] [place] [id number] Jun, [facility] [address] [id number] [address] [place] [id number] Jun, [facility] [address] [id number] [address] [place] [id number] Jun, [facility] [address] [id number] [address] [place] [id number] Jun, [facility] [address] [id number] [address] [place] [id number] May, Diabetes E11.9 ; Other chron ic pain G89.29 ; Acute recurrent maxillary sinusitis J01.01 ; Bipolar I disorder with depression F31.9 and Anxiety disorder, unspecified F41.9 [facility] [address] [id number] [address] [place] [id number] May, [facility] [address] [id number] [address] [place] [id number] May, Diabetes E11.9 ; Bipolar I d isorder with depression F31.9 ; Anxiety disorder, unspecified F41.9 ; Other chronic pain G89.29 and Acute recurrent maxillary sinusitis J01.01 [place] [address] [id number] [address] [place] [id number] May, [place] [address] [id number] [address] [place] [id number] May, Attention deficit hyperactiv ity disorder (ADHD), predominantly inattentive type F90.0 [place] [address] [id number] [address] [place] [id number] May, [place] [address] [id number] [address] [place] [id number] Apr, Attention deficit hyperactiv ity disorder (ADHD), predominantly inattentive type F90.0 and Non-seasonal allergic rhinitis due to other allergic trigger J30.89 [place] [address] [facility] [id number] [address] [place] [id number] Apr, Bipolar 1 disorder, depresse d, moderate F31.32 ; Panic disorder with agoraphobia F40.01 and Chronic post-traumatic stress disorder (PTSD) F43.12 [place] [address] [facility] [id number] [address] [place] [id number] 06 Apr, 2016 Dental examination Z01.20 [place] [address] [id number] [address] [place] [id number] 23 Mar, 2016 [place] [address] [facility] [id number] [address] [place] [id number] Mar, [place] [address] [id number] [address] [place] [id number] 17 Mar, 2016 Bipolar I disorder with depr ession F31.9 and Anxiety disorder, unspecified F41.9 [place] [address] [facility] [id number] [address] [place] [id number] 08 Mar, 2016 Panic disorder with agorapho syd F40.01 ; Bipolar 1 disorder, depressed, moderate F31.32 and Chronic post-traumatic stress disorder (PTSD) F43.12 [place] [address] [facility] [id number] [address] [place] [id number] 04 Mar, 2016 [facility] [address] [facility] [id number] [address] [place] [id number] Mar, Dental caries K02.9 [facility] [address] [place] [id number] [address] [place] [id number] 24 Feb, 2016 Lumbago with sciatica, left side M54.42 ; Lumbago with sciatica, right side M54.41 and Other chronic pain G89.29 [place] [address] [place] [id number] [address] [place] [id number] 17 Feb, 2016 [place] [address] [place] [id number] [place] [id number] 14 Feb, 2016 [place] [address] [address] Feb, Bipolar I disorder with depr ession F31.9 ; PTSD (post-traumatic stress disorder) F43.10 and Mood disorder F39 [place] [address] [place] [id number] [address] [place] [id number] Feb, [place] [address] [place] [id number] [place] [address] Feb, Dental examination Z01.20 [place] [address] [id number] 07 Feb, 2016 [facility] [address] [place] [id number] [address] [place] [id number] 03 Feb, 2016 Acute bronchitis, unspecifie d organism J20.9 [place] [address] [place] [id number] [place] [id number] 26 Jan, 2016 Mood disorder F39 ; Migraine without aura and without status migrainosus, not intractable G43.009 ; Irritable bowel syndrome, unspecified type K58.9 ; Diabetes E11.9 and Encounter for immunization Z23 [place] [address] [place] [id number] [address] [place] [id number] Jan, [facility] [address] [facility] [id number] [address] [place] [id number] Jan, [facility] [address] [facility] [id number] [address] [place] [phone] Jan, [facility] [address] [facility] [id number] [address] [place] [id number] Jan, [facility] [address] [place] [id number] [address] [place] [id number] Jan, [facility] [address] [facility] [id number] [address] [place] [id number] Dec, Bipolar I disorder with depr ession F31.9 ; PTSD (post-traumatic stress disorder) F43.10 and Panic disorder with agoraphobia F40.01 [facility] [address] [place] [id number] [address] [place] [id number] Dec, Chronic obstructive pulmonar y disease, unspecified COPD type J44.9 ; Tremor R25.1 and Anxiety F41.9 [facility] [address] [place] [id number] [address] [place] [id number] Dec, [facility] [address] [place] [id number] [address] [place] [id number] Nov, Tremors of nervous system R2 5.1 and Cramping of feet R25.2 [facility] [address] [facility] [id number] [address] [place] [id number] Nov, [facility] [address] [facility] [id number] [address] [place] [id number] Nov, [facility] [address] [facility] [id number] [address] [place] [id number] Oct, Chronic obstructive pulmonar y disease, unspecified J44.9 [facility] [address] [place] [id number] [address] [place] [id number] Oct, [place] [address] [facility] [id number] [address] [place] [id number] Oct, Tremor R25.1 [place] [address] [place] [id number] [address] [place] [id number] Oct, Bipolar I disorder with depr ession F31.9 ; Diabetes E11.9 ; PTSD (post-traumatic stress disorder) F43.10 and Panic disorder with agoraphobia F40.01 [place] [address] [place] [id number] [address] [place] [id number] Oct, Mood disorder F39 [place] [address] [place] [id number] [address] [place] [id number] September, [place] [address] [place] [id number] [place] [id number] September, Diabetes E11.9 ; Bipolar I d isorder with depression F31.9 ; PTSD (post-traumatic stress disorder) F43.10 and Panic disorder with agoraphobia F40.01 [place] [address] [place] [id number] September, Mood disorder F39 ; Schizoaf fective disorder, unspecified type F25.9 ; Arthritis M19.90 ; Tremor R25.1 ; Acute non-recurrent frontal sinusitis J01.10 and Blood in stool K92.1 [place] [address] [place] [id number] September, [place] [address] [place] [id number] [address] [place] [id number] September, Chronic obstructive pulmonar y disease, unspecified J44.9 [place] [address] [place] [id number] [address] [place] [id number] September, Diabetes E11.9 [place] [address] [place] [id number] [address] [place] [id number] Aug, Other bipolar disorder F31.8 9 and Anxiety disorder, unspecified F41.9 [place] [address] [id number] [address] [place] [id number] Aug, [facility] [address] [id number] [address] [place] [id number] Aug, Diabetes E11.9 [facility] [address] [id number] [address] [place] [id number] 18 Aug, 2015 [facility] [address] [id number] [address] [place] [id number] 14 Aug, 2015 Diabetes E11.9 ; Fatigue R53 .83 and Dizziness R42 [facility] [address] [id number] [address] [place] [id number] 13 Aug, 2015 Other bipolar disorder F31.8 9 [facility] [address] [facility] [id number] [address] [place] [id number] 07 Aug, 2015 Generalized anxiety disorder F41.1 [facility] [address] [id number] [address] [place] [id number] Aug, Other bipolar disorder F31.8 9 and Anxiety disorder, unspecified F41.9 [facility] [address] [id number] [address] [place] [id number] Aug, [facility] [address] [facility] [id number] [address] [place] [id number] Jul, [facility] [address] [facility] [id number] [address] [place] [id number] Jul, [facility] [address] [id number] [address] [place] [id number] Jul, Bronchitis J40 [facility] [address] [id number] [address] [place] [id number] Jul, Anxiety disorder F41.9 [facility] [address] [facility] [id number] [address] [place] [id number] Jul, Other bipolar disorder F31.8 9 and Anxiety disorder, unspecified F41.9 [facility] [address] [id number] 18 Jul, 2015 Other bipolar disorder F31.8 9 and Fibromyalgia M79.7 [facility] [address] [id number] Jul, [facility] [address] [id number] Jul, [facility] [address] [address] Jul, [facility] [address] [address] Jul, Other bipolar disorder F31.8 9 and Anxiety disorder, unspecified F41.9 [place] [address] [address] Jun, GERD (gastroesophageal reflu x disease) K21.9 [place] [address] [address] Jun, [facility] [address] [address] May, [place] [address] [address] May, Diabetes E11.9 ; Back pain M 54.9 ; GERD (gastroesophageal reflux disease) K21.9 ; Hypertension I10 and Peripheral neuropathy G62.9 [place] [address] [address] Mar, [facility] [address] [address] Mar, [place] [address] [address] Mar, Acute sinusitis J01.90 and O titis media, left H66.92 [place] [address] [address] Feb, [facility] [address] [facility] [id number] [address] [place] [id number] Feb, [facility] [address] [facility] [id number] [address] [place] [id number] Feb, [facility] [address] [facility] [id number] [address] [place] [id number] Feb, [facility] [address] [facility] [id number] [address] [place] [id number] Jan, [facility] [address] [facility] [id number] [address] [place] [id number] Jan, Diabetes 250.00 and Back higinio n 724.5 [facility] [address] [facility] [id number] [address] [place] [id number] Jan, [facility] [address] [facility] [id number] [address] [place] [address] Dec, Diabetes 250.00 ; Benign ess ential hypertension 401.1 and Allergic rhinitis 477.9 [facility] [address] [facility] [id number] [address] [place] [id number] Dec, [facility] [address] [facility] [id number] [address] [place] [id number] Dec, [facility] [address] [facility] [id number] [address] [place] [id number] Dec, Psychosis 298.9 [facility] [address] [facility] [id number] [address] [place] [id number] Dec, Medication side effect 995.2 0 and Generalized anxiety disorder 300.02 [facility] [address] [facility] [id number] [address] [place] [id number] Dec, Acquired cognitive dysfuncti on 294.9 [facility] [address] [facility] [id number] [address] [place] [id number] Dec, [facility] [address] [place] [id number] [address] [place] [id number] Dec, Unspecified myalgia and myos itis 729.1 and Generalized anxiety disorder 300.02 [facility] [address] [id number] [address] [place] [id number] Nov, [facility] [address] [id number] [address] [place] [phone] Nov, [facility] [address] [id number] [address] [place] [id number] Nov, [facility] [address] [id number] [address] [place] [id number] Nov, Upper respiratory infection 465.9 and Chronic airway obstruction, not elsewhere classified 496 [facility] [address] [id number] [address] [place] [id number] Nov, Hyponatremia 276.1 [facility] [address] [id number] [address] [place] [id number] Oct, [facility] [address] [id number] [address] [place] [id number] Oct, [facility] [address] [facility] [id number] [address] [place] [id number] Oct, [facility] [address] [facility] [id number] [address] [place] [id number] Oct, [facility] [address] [id number] [address] [place] [id number] Oct, Hyponatremia 276.1 [facility] [address] [id number] [address] [place] [id number] Oct, [facility] [address] [id number] [address] [place] [id number] Oct, [facility] [address] [facility] [id number] [address] [place] [address] Oct, Generalized anxiety disorder 300.02 [facility] [address] [id number] [address] [place] [id number] Oct, Generalized anxiety disorder 300.02 and Diabetes 250.00 [facility] [address] [id number] [address] [place] [id number] 14 Aug, 2014 [facility] [address] [id number] [address] [place] [id number] Aug, [facility] [address] [id number] [address] [place] [id number] Jul, [facility] [address] [id number] [address] [place] [id number] Jul, [facility] [address] [id number] [address] [place] [id number] Jun, [facility] [address] [id number] [address] [place] [id number] Jun, [facility] [address] [id number] [address] [place] [id number] Jun, [facility] [address] [id number] [address] [place] [id number] Jun, [facility] [address] [id number] [address] [place] [id number] Jun, [facility] [address] [id number] [address] [place] [id number] May, [facility] [address] [id number] [address] [place] [id number] May, [facility] [address] [id number] [address] [place] [phone] Apr, [facility] [address] [id number] [address] [place] [id number] Apr, [facility] [address] [id number] [address] [place] [id number] Apr, [facility] [address] [id number] [address] [place] [phone] Apr, [facility] [address] [id number] [address] [place] [address], [place] [address] Apr, [facility] [address] [id number] [address] [place] [address], [place] [address] Apr, [facility] [address] [id number] [address] [place] [address], [place] [address] Apr, [facility] [address] [id number] [address] [place] [address], [place] [address] Apr, [facility] [address] [id number] [address] [place] [address], [place] [address] Feb, [facility] [address] [id number] [address] [place] [address], [place] [address] Feb, [facility] [address] [id number] [address] [place] [address], [place] [address] Jan, [facility] [address] [id number] [address] [place] [address], [place] [address] Jan, [facility] [address] [id number] [address] [place] [address], [place] [address] Dec, [facility] [address] [id number] [address] [place] [address], [place] [address] Dec, [facility] [address] [id number] [address] [place] [address], [place] [address] Dec, [facility] [address] [id number] [address] [place] [address], [place] [address] Nov, [facility] [address] [id number] [address] [place] [address], [place] [address] Nov, [facility] [address] [id number] [address] [place] [address], [place] [address] Nov, [facility] [address] [id number] [address] [place] [address], [place] [address] Oct, [facility] [address] [id number] [address] [place] [address], [place] [address] Oct, [facility] [address] [id number] [address] [place] [address], [place] [address] Oct, [facility] [address] [id number] [address] [place] [address], [place] [address] September, [facility] [address] [id number] [address] [place] [address], [place] [address] September, [facility] [address] [id number] [address] [place] [address], [place] [address] September, [facility] [address] [id number] [address] [place] [address], [place] [address] Aug, [facility] [address] [id number] [address] [place] [address], [place] [address] Aug, [facility] [address] [id number] [address] [place] [address], [place] [address] Aug, [facility] [address] [id number] [address] [place] [address], [place] [address] 16 Aug, 2011 [facility] [address] [id number] [address] [place] [address], [place] [address] Jul, [facility] [address] [id number] [address] [place] [address], [place] [address] Jun, [facility] [address] [id number] [address] [place] [address], [place] [address] 14 Jun, 2011 [facility] [address] [id number] [address] [place] [address], [place] [address] 13 Jun, 2011 [facility] [address] [id number] [address] [place] [address], [place] [address] 07 Jun, 2011 [facility] [address] [id number] [address] [place] [address], [place] [address] 03 Jun, 2011 [facility] [address] [id number] [address] [place] [address], [place] [address] 13 May, 2011 [facility] [address] [id number] [address] [place] [address], [place] [address] May, [facility] [address] [id number] [address] [place] [address], [place] [address] May, [facility] [address] [id number] [address] [place] [address], [place] [address] May, [facility] [address] [id number] [address] [place] [address], [place] [address] Apr, [facility] [address] [id number] [address] [place] [address], [place] [address] Apr, [facility] [address] [id number] [address] [place] [address], [place] [address] Apr, [facility] [address] [id number] [address] [place] [address], [place] [address] Mar, [facility] [address] [id number] [address] [place] [address], [place] [address] Mar, [facility] [address] [id number] [address] [place] [address], [place] [id number] Mar, [facility] [address] [id number] [address] [place] [address], [place] [address] Feb, [facility] [address] [id number] [address] [place] [address], [place] [address] Feb, [facility] [address] [id number] [address] [place] [id number] Feb, [facility] [address] [id number] [address] [place] [address], [place] [address] Nov, [facility] [address] [id number] [address] [place] [address], [place] [address] September, [facility] [address] [id number] [address] [place] [address], [place] [address] Aug, [facility] [address] [id number] [address] [place] [id number] 14 Jul, 2010 [facility] [address] [facility] [id number] [address] [place] [id number] 11 May, 2010 [facility] [address] [facility] [id number] [address] [place] [id number] 31 Apr, 2010 [facility] [address] [facility] [id number] [address] [place] [id number] 30 Apr, 2010 [facility] [address] [facility] [id number] [address] [place] [id number] Apr, [facility] [address] [facility] [id number] [address] [place] [id number] Apr, [facility] [address] [facility] [id number] [address] [place] [id number] Apr, IMMUNIZATIONS No Known Immunizations SOCIAL HISTORY [...]
--- OUTSIDE RECORDS SUMMARY | 2019-07-17 10:51 | XMS REPORT ---
Author Author Sujey GANDHI Organization [facility] Address [address] [place] [address] Care Team Providers Care Senior Librarian Name Role Phone WHIT GANDHI Unavailable PROBLEMS Type Condition ICD9-CM Code JKV81-CX Code Onset Dates Condition S tatus SNOMED Code Problem Diabetes E11.9 Active 55452828 Problem GERD (gastroesophageal reflux disease) K21.9 Active 871795239 Problem Anxiety disorder, unspecified F41.9 Active 891616673 Problem Hypertension I10 Active 0044780 3 Problem Other bipolar disorder F31.89 Active 18967591 Problem Fibromyalgia M79.7 Active 2499457 7 Problem Panic disorder with agoraphobia F40.01 Active 84189058 Problem Chronic obstructive pulmonary disease, unspecified J44.9 Active 62730606 Problem Lumbago with sciatica, left side M54.42 Active 723770634 Problem Migraine without aura and without status migrain osus, not intractable G43.009 Active 096688435 Problem Lumbago with sciatica, right side M54.41 Active 080412545 Problem Fibrocystic disease of right breast N60.11 Active 91701718 Problem Other chronic pain G89.29 Active 8 2647658 Problem Fibrocystic disease of left breast N60.12 Active 72128990 Problem Irritable bowel syndrome with constipation K58.1 Active 389323507 Problem Arthritis M19.90 Active 5102853 Problem Abnormal mammogram of right breast R92.8 Active 575831112 Problem Daytime somnolence R40.0 Active 1 75694853161 Problem Bipolar affective disorder, remission status unspecified F31.9 Active 50201997 Problem Chronic post-traumatic stress disorder (PTSD) F43. 12 Active 918973816 Problem Bipolar 1 disorder, depressed, moderate F31.32 Active 72426424 Problem Schizoaffective disorder, bipolar type F25.0 Active 10510604 Problem Irritable bowel syndrome with both constipation and diarrh ea K58.2 Active 32899879 Problem Slow transit constipation K59.01 Acti ve 09615608 Problem Essential tremor G25.0 Active 609 301573 Problem Acute non-recurrent maxillary sinusitis J01.00 Active 37083386 Problem Back pain M54.9 Active 919682690 Problem Bipolar 1 disorder, depressed, partial remission F 31.75 Active 54779667 Problem Attention deficit hyperactiv ity disorder (ADHD), predominantly inattentive type F90.0 Active 00962836 Problem Bipolar I disorder with depression F31.9 Active 98378690 Problem Panlobular emphysema J43.1 Active 7802917 Problem Akathisia G25.71 Active 747699614 Problem Mild persistent asthma without complication J45.30 Active 012107540 Problem Moderate persistent asthma without complication J4 5.40 Active 390238278 ALLERGIES No Information ENCOUNTERS Encounter Location Date Diagnosis [place] [address] [place] [id number] [place] [phone] Mar, [place] [address] [place] [phone] Mar, [place] [address] [place] [id number] [place] [id number] Feb, [place] [address] [facility] [id number] [address] [place] [id number] Feb, [place] [address] [place] [id number] [place] [id number] Feb, Tremors of nervous system R2 5.1 and Acute swimmer''s ear of right side H60.331 [place] [address] [facility] [id number] [address] [place] [id number] Feb, Cerebrovascular accident (CV A) due to occlusion of right cerebellar artery I63.541 and Hypertension I10 [facility] [address] [facility] [id number] [address] [place] [id number] Feb, [place] [address] [facility] [id number] [address] [place] [id number] Feb, Cerebrovascular accident (CV A) due to occlusion of right cerebellar artery I63.541 [facility] [address] [id number] [id number] Feb, Hyponatremia E87.1 [facility] [address] [facility] [id number] [address] [place] [phone] Feb, [facility] [address] [facility] [id number] [address] [place] [id number] Feb, Daytime somnolence R40.0 [facility] [address] [facility] [id number] [address] [place] [id number] Feb, [facility] [address] [place] [id number] [place] [id number] Jan, [facility] [address] [address] Jan, [facility] [address] [place] [id number] [place] [phone] Jan, Chronic obstructive pulmonar y disease, unspecified J44.9 and Anxiety disorder, unspecified F41.9 [facility] [address] [place] [id number] Jan, Hypertension I10 ; Fibromyal medhat M79.7 and Lumbago with sciatica, left side M54.42 [facility] [address] [place] [id number] 26 Jan, 2018 [facility] [address] [place] [id number] [place] [id number] 20 Jan, 2018 Cerebrovascular accident (CV A) due to occlusion of right cerebellar artery I63.541 [facility] [address] [facility] [id number] [address] [place] [id number] 19 Jan, 2018 [facility] [address] [place] [id number] [place] [id number] 13 Jan, 2018 Arthritis M19.90 [facility] [address] [place] [id number] [place] [id number] 07 Jan, 2018 [place] [address] [facility] [id number] [address] [place] [phone] Jan, Abnormal mammogram of right breast R92.8 [place] [address] [place] [id number] [place] [id number] Dec, Daytime somnolence R40.0 and Right otitis media with effusion H65.91 [place] [address] [facility] [id number] [address] [place] [id number] Dec, [place] [address] [facility] [id number] [address] [place] [id number] Dec, Cerebrovascular accident (CV A) due to occlusion of right cerebellar artery I63.541 [place] [address] [place] [id number] [place] [id number] Dec, [place] [address] [place] [id number] [place] [id number] Dec, [place] [address] [place] [id number] [place] [phone] Nov, Bipolar 1 disorder, depresse d, partial remission F31.75 and Panic disorder with agoraphobia F40.01 [place] [address] [place] [id number] [place] [id number] Nov, Panlobular emphysema J43.1 [place] [address] [place] [id number] [place] [id number] Nov, Cerebrovascular accident (CV A) due to occlusion of right cerebellar artery I63.541 and Acute non-recurrent maxillary sinusitis J01.00 [place] [address] [facility] [id number] [address] [place] [id number] Nov, Panlobular emphysema J43.1 [place] [address] [facility] [id number] [address] [place] [id number] Nov, [place] [address] [place] [id number] [place] [id number] Nov, [facility] [address] [id number] [address] [place] [phone] Nov, [facility] [address] [id number] [address] [place] [id number] Nov, [facility] [address] [id number] [address] [place] [phone] Nov, [facility] [address] [facility] [id number] [address] [place] [id number] Nov, [facility] [address] [id number] [address] [place] [id number] Nov, [facility] [address] [facility] [id number] [address] [place] [id number] Nov, Mild persistent asthma witho ut complication J45.30 and Irritable bowel syndrome with both constipation and diarrhea K58.2 [facility] [address] [facility] [id number] [address] [place] [id number] Nov, [facility] [address] [facility] [id number] [address] [place] [phone] Oct, [facility] [address] [facility] [id number] [address] [place] [id number] Oct, [facility] [address] [facility] [id number] [address] [place] [id number] Oct, Type 2 diabetes mellitus wit h diabetic neuropathy, unspecified whether director business intelligence insulin use E11.40 ; Diabetes E11.9 ; Slow transit constipation K59.01 ; Edema of both legs R60.0 and Dysfunction of right eustachian tube H69.81 [facility] [address] [facility] [id number] [address] [place] [id number] Oct, Frequent headaches R51 [facility] [address] [facility] [id number] [address] [place] [id number] Oct, [facility] [address] [facility] [id number] [address] [place] [phone] Oct, [facility] [address] [facility] [id number] [address] [place] [id number] Oct, [facility] [address] [facility] [id number] [address] [place] [phone] Oct, [facility] [address] [facility] [id number] [address] [place] [id number] Oct, [facility] [address] [facility] [id number] [address] [place] [id number] Oct, [facility] [address] [facility] [id number] [address] [place] [id number] Oct, [facility] [address] [facility] [id number] [address] [place] [phone] Oct, [facility] [address] [place] [id number] [place] [id number] September, Frequent headaches R51 [facility] [address] [facility] [id number] [address] [place] [id number] September, Bilateral otitis media with effusion H65.93 ; Dizziness R42 and Essential tremor G25.0 [facility] [address] [facility] [id number] [address] [place] [id number] September, Chronic obstructive pulmonar y disease, unspecified COPD type J44.9 [facility] [address] [facility] [id number] [address] [place] [id number] September, Chronic obstructive pulmonar y disease, unspecified COPD type J44.9 [facility] [address] [facility] [id number] [address] [place] [id number] September, Migraine without aura and wi thout status migrainosus, not intractable G43.009 [facility] [address] [facility] [id number] [address] [place] [id number] September, [facility] [address] [facility] [id number] [address] [place] [phone] September, [facility] [address] [facility] [id number] [address] [place] [id number] September, [facility] [address] [facility] [id number] [address] [place] [id number] September, Frequent headaches R51 [facility] [address] [facility] [id number] [address] [place] [id number] Aug, [facility] [address] [place] [id number] [place] [id number] Aug, Breast mass, right N63.10 [place] [address] [facility] [id number] [address] [place] [id number] Aug, Breast lump N63.0 [place] [address] [facility] [id number] [address] [place] [id number] Aug, [place] [address] [place] [id number] [place] [id number] Aug, Bipolar affective disorder, remission status unspecified F31.9 and Diabetes E11.9 [place] [address] [place] [address] Aug, Diabetes E11.9 ; Schizoaffec tive disorder, bipolar type F25.0 ; Pharyngitis due to other organism J02.8 ; Panlobular emphysema J43.1 and Irritable bowel syndrome with both constipation and diarrhea K58.2 [place] [address] [place] [id number] [place] [id number] Aug, Abnormal mammogram R92.8 [place] [address] [place] [id number] [place] [id number] Aug, [place] [address] [place] [id number] [place] [id number] Aug, Bipolar 1 disorder, depresse d, moderate F31.32 ; Panic disorder with agoraphobia F40.01 and Chronic post-traumatic stress disorder (PTSD) F43.12 [place] [address] [place] [id number] [place] [id number] Aug, [facility] [address] [id number] [address] [place] [id number] Aug, [facility] [address] [facility] [id number] [address] [place] [id number] Aug, [facility] [address] [facility] [id number] [address] [place] [id number] Jul, [facility] [address] [facility] [id number] [address] [place] [id number] Jul, Mild persistent asthma witho ut complication J45.30 [facility] [address] [facility] [id number] [address] [place] [id number] 19 Jul, 2017 Mild persistent asthma witho ut complication J45.30 [facility] [address] [facility] [id number] [address] [place] [id number] 15 Jul, 2017 Bipolar affective disorder, remission status unspecified F31.9 ; Diabetes E11.9 and Irritable bowel syndrome with constipation K58.1 [facility] [address] [facility] [id number] [address] [place] [id number] Jul, [facility] [address] [facility] [id number] [address] [place] [id number] Jul, [facility] [address] [facility] [id number] [address] [place] [id number] Jul, Frequent headaches R51 [facility] [address] [facility] [id number] [address] [place] [id number] Jul, [facility] [address] [id number] [address] [place] [id number] Jul, [facility] [address] [facility] [id number] [address] [place] [id number] Jul, [facility] [address] [facility] [id number] [address] [place] [id number] Jul, Frequent headaches R51 ; Fib rocystic disease of left breast N60.12 ; Fibrocystic disease of right breast N60.11 and Diabetes E11.9 [facility] [address] [facility] [id number] [address] [place] [id number] Jul, [facility] [address] [facility] [id number] [address] [place] [phone] Jul, [facility] [address] [facility] [id number] [place] [id number] Jun, Exudative tonsillitis J03.90 [facility] [address] [facility] [id number] [address] [place] [id number] Jun, [place] [address] [place] [id number] [place] [id number] 19 Jun, 2017 [facility] [address] [place] [id number] [place] [id number] 15 Jun, 2017 Mild persistent asthma witho ut complication J45.30 ; Chronic obstructive pulmonary disease, unspecified COPD type J44.9 and Exudative tonsillitis J03.90 [place] [address] [facility] [id number] [address] [place] [id number] 13 Jun, 2017 Encounter for immunization Z 23 [facility] [address] [facility] [id number] [address] [place] [id number] 12 Jun, 2017 [facility] [address] [facility] [id number] [address] [place] [id number] Jun, [facility] [address] [facility] [id number] [address] [place] [id number] 09 Jun, 2017 [facility] [address] [facility] [id number] [address] [place] [id number] 06 Jun, 2017 Tonsillitis J03.90 [facility] [address] [facility] [id number] [address] [place] [id number] 05 Jun, 2017 [facility] [address] [place] [id number] [address] [place] [id number] Jun, Acute non-recurrent maxillar y sinusitis J01.00 [facility] [address] [facility] [id number] [address] [place] [id number] 02 Jun, 2017 [facility] [address] [facility] [id number] [address] [place] [id number] May, [facility] [address] [facility] [id number] [address] [place] [id number] May, [facility] [address] [place] [id number] [place] [id number] May, GERD (gastroesophageal reflu x disease) K21.9 [facility] [address] [place] [id number] [place] [id number] May, Migraine without aura and wi thout status migrainosus, not intractable G43.009 [place] [address] [place] [id number] [place] [id number] May, [facility] [address] [place] [id number] [address] [place] [id number] May, [place] [address] [address] May, Panlobular emphysema J43.1 a nd Acute non-recurrent maxillary sinusitis J01.00 [place] [address] [place] [id number] [place] [id number] May, Bipolar 1 disorder, depresse d, moderate F31.32 ; Panic disorder with agoraphobia F40.01 and Akathisia G25.71 [place] [address] [facility] [id number] [address] [place] [id number] Apr, [place] [address] [place] [id number] [place] [id number] Apr, [facility] [address] [place] [id number] [address] [place] [id number] Apr, Acute non-recurrent maxillar y sinusitis J01.00 [facility] [address] [id number] [address] [place] [id number] 07 Apr, 2017 Panlobular emphysema J43.1 [facility] [address] [id number] [address] [place] [id number] 04 Apr, 2017 [facility] [address] [id number] [address] [place] [id number] 04 Apr, 2017 Exudative tonsillitis J03.90 and Sore throat J02.9 [facility] [address] [id number] [address] [place] [id number] 17 Mar, 2017 [facility] [address] [id number] [address] [place] [id number] 15 Mar, 2017 Acute non-recurrent maxillar y sinusitis J01.00 [facility] [address] [id number] [address] [place] [id number] 13 Mar, 2017 [facility] [address] [id number] [address] [place] [id number] 09 Mar, 2017 Panlobular emphysema J43.1 a nd Diabetes E11.9 [facility] [address] [id number] [address] [place] [id number] 06 Mar, 2017 [facility] [address] [facility] [id number] [address] [place] [id number] 24 Feb, 2017 Wheezing R06.2 and Acute rec urrent pansinusitis J01.41 [facility] [address] [id number] [address] [place] [id number] Feb, [facility] [address] [id number] [address] [place] [id number] Feb, Acute non-recurrent maxillar y sinusitis J01.00 [facility] [address] [id number] [address] [place] [id number] Feb, Chronic obstructive pulmonar y disease, unspecified J44.9 [facility] [address] [id number] [address] [place] [id number] Feb, Hypoxemia R09.02 and Chronic obstructive pulmonary disease, unspecified J44.9 [facility] [address] [facility] [id number] [address] [place] [id number] 28 Jan, 2017 Bipolar 1 disorder, depresse d, moderate F31.32 ; Panic disorder with agoraphobia F40.01 ; Chronic post-traumatic stress disorder (PTSD) F43.12 ; Diabetes E11.9 and Moderate persistent asthma without complication J45.40 [facility] [address] [id number] [address] [place] [id number] Jan, [place] [address] [id number] [address] [place] [id number] 19 Jan, 2017 Acute non-recurrent maxillar y sinusitis J01.00 [place] [address] [facility] [id number] [address] [place] [id number] 18 Jan, 2017 [facility] [address] [id number] [address] [place] [id number] Jan, [facility] [address] [id number] [address] [place] [phone] Jan, Moderate persistent asthma w [facility] complication J45.40 and Hypoxemia R09.02 [place] [id number] [facility] [id number] [address] [place] [phone] Jan, Moderate persistent asthma w [facility] complication J45.40 and Hypoxemia R09.02 [facility] [address] [id number] [address] [place] [phone] Jan, [facility] [address] [id number] [address] [place] [phone] Dec, Acute non-recurrent maxillar y sinusitis J01.00 [facility] [address] [id number] [address] [place] [phone] Dec, Chronic obstructive pulmonar y disease, unspecified J44.9 [facility] [address] [id number] [address] [place] [phone] Dec, [facility] [address] [id number] [address] [place] [phone] Dec, Mild persistent asthma witho ut complication J45.30 and Other chronic pain G89.29 [facility] [address] [id number] [address] [place] [phone] Nov, [facility] [address] [id number] [address] [place] [phone] Nov, Acute non-recurrent maxillar y sinusitis J01.00 [facility] [address] [id number] [address] [place] [phone] Nov, [facility] [address] [id number] [address] [place] [phone] Nov, [facility] [address] [facility] [id number] [address] [place] [phone] Oct, [facility] [address] [id number] [address] [place] [id number] Oct, Bipolar 1 disorder, depresse d, partial remission F31.75 ; Panic disorder with agoraphobia F40.01 and Chronic post-traumatic stress disorder (PTSD) F43.12 [facility] [address] [id number] [address] [place] [phone] Oct, Acute non-recurrent maxillar y sinusitis J01.00 [facility] [address] [id number] [address] [place] [id number] Oct, [facility] [address] [id number] [address] [place] [phone] Oct, Diabetes E11.9 [facility] [address] [id number] [address] [place] [id number] September, Diabetes E11.9 [facility] [address] [id number] [address] [place] [id number] September, Diabetes E11.9 and Sinus tac hycardia R00.0 [facility] [address] [id number] [address] [place] [id number] September, [facility] [address] [id number] [address] [place] [id number] September, [facility] [address] [place] [id number] [address] [place] [id number] Aug, Diabetes E11.9 and Lumbago w ith sciatica, right side M54.41 [facility] [address] [id number] [address] [place] [id number] Aug, [facility] [address] [id number] [address] [place] [id number] Jul, Bipolar 1 disorder, depresse d, moderate F31.32 ; Panic disorder with agoraphobia F40.01 and Chronic post-traumatic stress disorder (PTSD) F43.12 [place] [address] [id number] [address] [place] [id number] Jul, Sore throat J02.9 [facility] [address] [id number] [address] [place] [id number] Jul, [facility] [address] [id number] [address] [place] [id number] Jul, [facility] [address] [id number] [address] [place] [id number] Jul, [facility] [address] [id number] [address] [place] [id number] Jul, [facility] [address] [id number] [address] [place] [id number] Jul, Sore throat J02.9 and Pharyn gitis, unspecified etiology J02.9 [facility] [address] [id number] [address] [place] [id number] Jun, [facility] [address] [id number] [address] [place] [id number] Jun, Diabetes E11.9 [facility] [address] [id number] [address] [place] [id number] Jun, [facility] [address] [id number] [address] [place] [id number] Jun, [facility] [address] [id number] [address] [place] [id number] Jun, [facility] [address] [id number] [address] [place] [id number] Jun, [facility] [address] [id number] [address] [place] [id number] Jun, [facility] [address] [id number] [address] [place] [id number] Jun, [facility] [address] [id number] [address] [place] [id number] Jun, [facility] [address] [id number] [address] [place] [id number] Jun, [facility] [address] [id number] [address] [place] [address] May, Diabetes E11.9 ; Other chron ic pain G89.29 ; Acute recurrent maxillary sinusitis J01.01 ; Bipolar I disorder with depression F31.9 and Anxiety disorder, unspecified F41.9 [facility] [address] [id number] [address] [place] [phone] May, [facility] [address] [id number] [address] [place] [id number] May, Diabetes E11.9 ; Bipolar I d isorder with depression F31.9 ; Anxiety disorder, unspecified F41.9 ; Other chronic pain G89.29 and Acute recurrent maxillary sinusitis J01.01 [facility] [address] [id number] [address] [place] [id number] May, [facility] [address] [id number] [address] [place] [id number] May, Attention deficit hyperactiv ity disorder (ADHD), predominantly inattentive type F90.0 [facility] [address] [id number] [address] [place] [id number] May, [facility] [address] [id number] [address] [place] [id number] Apr, Attention deficit hyperactiv ity disorder (ADHD), predominantly inattentive type F90.0 and Non-seasonal allergic rhinitis due to other allergic trigger J30.89 [place] [address] [id number] [address] [place] [id number] Apr, Bipolar 1 disorder, depresse d, moderate F31.32 ; Panic disorder with agoraphobia F40.01 and Chronic post-traumatic stress disorder (PTSD) F43.12 [facility] [address] [id number] [address] [place] [address] Apr, Dental examination Z01.20 [place] [address] [id number] [address] [place] [id number] Mar, [facility] [address] [id number] [address] [place] [id number] Mar, [facility] [address] [id number] [address] [place] [id number] Mar, Bipolar I disorder with depr ession F31.9 and Anxiety disorder, unspecified F41.9 [place] [address] [id number] [address] [place] [id number] 08 Mar, 2016 Panic disorder with agorapho syd F40.01 ; Bipolar 1 disorder, depressed, moderate F31.32 and Chronic post-traumatic stress disorder (PTSD) F43.12 [place] [address] [id number] [address] [place] [id number] Mar, [facility] [address] [id number] [address] [place] [id number] Mar, Dental caries K02.9 [facility] [address] [id number] [address] [place] [id number] Feb, Lumbago with sciatica, left side M54.42 ; Lumbago with sciatica, right side M54.41 and Other chronic pain G89.29 [place] [address] [place] [id number] [address] [place] [id number] 17 Feb, 2016 [place] [address] [place] [id number] [place] [id number] 14 Feb, 2016 [place] [address] [id number] 13 Feb, 2016 Bipolar I disorder with depr ession F31.9 ; PTSD (post-traumatic stress disorder) F43.10 and Mood disorder F39 [place] [address] [address] Feb, [facility] [address] [place] [id number] [place] [id number] 11 Feb, 2016 Dental examination Z01.20 [place] [address] [id number] 07 Feb, 2016 [facility] [address] [id number] [address] [place] [id number] 03 Feb, 2016 Acute bronchitis, unspecifie d organism J20.9 [place] [address] [place] [id number] [address] [place] [id number] 26 Jan, 2016 Mood disorder F39 ; Migraine without aura and without status migrainosus, not intractable G43.009 ; Irritable bowel syndrome, unspecified type K58.9 ; Diabetes E11.9 and Encounter for immunization Z23 [place] [address] [place] [id number] [address] [place] [id number] 15 Jan, 2016 [place] [address] [place] [id number] [place] [phone] 06 Jan, 2016 [place] [address] [id number] [address] [place] [id number] Jan, [facility] [address] [id number] [address] [place] [id number] Jan, [facility] [address] [id number] [address] [place] [id number] Jan, [facility] [address] [id number] [address] [place] [id number] Dec, Bipolar I disorder with depr ession F31.9 ; PTSD (post-traumatic stress disorder) F43.10 and Panic disorder with agoraphobia F40.01 [facility] [address] [id number] [address] [place] [id number] Dec, Chronic obstructive pulmonar y disease, unspecified COPD type J44.9 ; Tremor R25.1 and Anxiety F41.9 [facility] [address] [id number] [address] [place] [id number] Dec, [facility] [address] [address] Nov, Tremors of nervous system R2 5.1 and Cramping of feet R25.2 [facility] [address] [place] [place] [id number] [address] [place] [phone] Nov, [facility] [id number] [place] [id number] Nov, [facility] [address] [id number] [address] [place] [id number] Oct, Chronic obstructive pulmonar y disease, unspecified J44.9 [facility] [address] [place] [id number] [address] [place] [id number] Oct, [facility] [address] [id number] [address] [place] [id number] Oct, Tremor R25.1 [facility] [id number] [place] [address] Oct, Bipolar I disorder with depr ession F31.9 ; Diabetes E11.9 ; PTSD (post-traumatic stress disorder) F43.10 and Panic disorder with agoraphobia F40.01 [facility] [address] [id number] [address] [place] [id number] Oct, Mood disorder F39 [place] [address] [id number] [address] [place] [id number] September, [place] [address] [id number] [address] [place] [id number] September, Diabetes E11.9 ; Bipolar I d isorder with depression F31.9 ; PTSD (post-traumatic stress disorder) F43.10 and Panic disorder with agoraphobia F40.01 [place] [address] [place] [id number] [address] [place] [id number] September, Mood disorder F39 ; Schizoaf fective disorder, unspecified type F25.9 ; Arthritis M19.90 ; Tremor R25.1 ; Acute non-recurrent frontal sinusitis J01.10 and Blood in stool K92.1 [place] [address] [place] [id number] [address] [place] [id number] September, [place] [address] [place] [id number] [address] [place] [id number] September, Chronic obstructive pulmonar y disease, unspecified J44.9 [place] [address] [id number] [address] [place] [id number] September, Diabetes E11.9 [place] [address] [id number] [address] [place] [id number] Aug, Other bipolar disorder F31.8 9 and Anxiety disorder, unspecified F41.9 [place] [address] [id number] [address] [place] [id number] Aug, [place] [address] [place] [id number] [address] [place] [id number] Aug, Diabetes E11.9 [facility] [address] [id number] [address] [place] [id number] Aug, [facility] [address] [id number] [address] [place] [id number] 14 Aug, 2015 Diabetes E11.9 ; Fatigue R53 .83 and Dizziness R42 [facility] [address] [id number] [address] [place] [id number] Aug, Other bipolar disorder F31.8 9 [facility] [address] [id number] [address] [place] [id number] Aug, Generalized anxiety disorder F41.1 [facility] [address] [id number] [address] [place] [id number] Aug, Other bipolar disorder F31.8 9 and Anxiety disorder, unspecified F41.9 [facility] [address] [id number] [address] [place] [id number] Aug, [facility] [address] [id number] [address] [place] [id number] Jul, [facility] [address] [id number] [address] [place] [id number] 24 Jul, 2015 [facility] [address] [id number] [address] [place] [id number] Jul, Bronchitis J40 [facility] [address] [id number] [address] [place] [id number] Jul, Anxiety disorder F41.9 [facility] [address] [id number] [address] [place] [id number] Jul, Other bipolar disorder F31.8 9 and Anxiety disorder, unspecified F41.9 [facility] [address] [id number] [address] [place] [id number] 18 Jul, 2015 Other bipolar disorder F31.8 9 and Fibromyalgia M79.7 [facility] [address] [place] [id number] [address] [place] [id number] Jul, [facility] [address] [place] [id number] [address] [place] [id number] Jul, [facility] [address] [place] [id number] [place] [id number] Jul, [facility] [address] [id number] [place] [phone] Jul, Other bipolar disorder F31.8 9 and Anxiety disorder, unspecified F41.9 [facility] [address] [address] Jun, GERD (gastroesophageal reflu x disease) K21.9 [facility] [address] [address] Jun, [facility] [address] [address] May, [facility] [address] [address] May, Diabetes E11.9 ; Back pain M 54.9 ; GERD (gastroesophageal reflux disease) K21.9 ; Hypertension I10 and Peripheral neuropathy G62.9 [facility] [address] [address] Mar, [facility] [address] [address] Mar, [facility] [address] [address] Mar, Acute sinusitis J01.90 and O titis media, left H66.92 [facility] [address] [place] [id number] [address] [place] [id number] Feb, [facility] [address] [address] Feb, [facility] [address] [place] [address] Feb, [facility] [address] [id number] [address] [place] [id number] Feb, [facility] [address] [place] [id number] [address] [place] [id number] Jan, [facility] [address] [place] [id number] [place] [address] Jan, Diabetes 250.00 and Back higinio n 724.5 [facility] [address] [place] [id number] [place] [id number] Jan, [facility] [address] [place] [id number] [place] [address] Dec, Diabetes 250.00 ; Benign ess ential hypertension 401.1 and Allergic rhinitis 477.9 [facility] [address] [id number] Dec, [facility] [address] [address] Dec, [facility] [address] [address] Dec, Psychosis 298.9 [facility] [address] [place] [id number] [place] [address] Dec, Medication side effect 995.2 0 and Generalized anxiety disorder 300.02 [facility] [address] [place] [id number] [address] [place] [id number] Dec, Acquired cognitive dysfuncti on 294.9 [facility] [address] [place] [id number] [place] [phone] Dec, [facility] [address] [place] [id number] [place] [id number] Dec, Unspecified myalgia and myos itis 729.1 and Generalized anxiety disorder 300.02 [facility] [address] [place] [id number] [address] [place] [id number] Nov, [facility] [address] [id number] [address] [place] [id number] Nov, [facility] [address] [id number] [address] [place] [id number] Nov, [facility] [address] [id number] [address] [place] [id number] Nov, Upper respiratory infection 465.9 and Chronic airway obstruction, not elsewhere classified 496 [facility] [address] [id number] [address] [place] [id number] Nov, Hyponatremia 276.1 [facility] [address] [id number] [address] [place] [id number] Oct, [facility] [address] [id number] [address] [place] [id number] Oct, [facility] [address] [id number] [address] [place] [id number] Oct, [facility] [address] [id number] [address] [place] [id number] Oct, [facility] [address] [id number] [address] [place] [id number] Oct, Hyponatremia 276.1 [facility] [address] [id number] [address] [place] [id number] Oct, [facility] [address] [id number] [address] [place] [id number] Oct, [facility] [address] [id number] [address] [place] [id number] Oct, Generalized anxiety disorder 300.02 [facility] [address] [id number] [address] [place] [id number] Oct, Generalized anxiety disorder 300.02 and Diabetes 250.00 [facility] [address] [id number] [address] [place] [id number] Aug, [facility] [address] [id number] [address] [place] [address], [place] [address] 13 Aug, 2014 [facility] [address] [id number] [address] [place] [address], [place] [address] Jul, [facility] [address] [id number] [address] [place] [address], [place] [address] Jul, [facility] [address] [id number] [address] [place] [address], [place] [address] Jun, [facility] [address] [id number] [address] [place] [address], [place] [address] Jun, [facility] [address] [id number] [address] [place] [address], [place] [address] Jun, [facility] [address] [id number] [address] [place] [address], [place] [address] Jun, [facility] [address] [id number] [address] [place] [address], [place] [address] Jun, [facility] [address] [id number] [address] [place] [address], [place] [address] May, [facility] [address] [id number] [address] [place] [address], [place] [address] May, [facility] [address] [id number] [address] [place] [address], [place] [address] Apr, [facility] [address] [id number] [address] [place] [address], [place] [address] Apr, [facility] [address] [id number] [address] [place] [address], [place] [address] 18 Apr, 2013 [facility] [address] [id number] [address] [place] [address], [place] [id number] 18 Apr, 2013 [facility] [address] [id number] [address] [place] [address], [place] [address] 17 Apr, 2013 [facility] [address] [id number] [address] [place] [address], [place] [address] Apr, [facility] [address] [id number] [address] [place] [address], [place] [address] Apr, [facility] [address] [id number] [address] [place] [address], [place] [address] Apr, [facility] [address] [id number] [address] [place] [address], [place] [address] Feb, [facility] [address] [id number] [address] [place] [address], [place] [address] Feb, [facility] [address] [id number] [address] [place] [address], [place] [address] Jan, [facility] [address] [id number] [address] [place] [address], [place] [address] Jan, [facility] [address] [id number] [address] [place] [address], [place] [address] Dec, [facility] [address] [id number] [address] [place] [address], [place] [address] Dec, [facility] [address] [id number] [address] [place] [address], [place] [address] Dec, [facility] [address] [id number] [address] [place] [address], [place] [address] Nov, [facility] [address] [id number] [address] [place] [address], [place] [address] Nov, [facility] [address] [id number] [address] [place] [address], [place] [address] Nov, [facility] [address] [id number] [address] [place] [address], [place] [address] Oct, [facility] [address] [id number] [address] [place] [address], [place] [address] Oct, [facility] [address] [id number] [address] [place] [address], [place] [address] Oct, [facility] [address] [id number] [address] [place] [address], [place] [address] September, [facility] [address] [id number] [address] [place] [address], [place] [address] September, [facility] [address] [id number] [address] [place] [address], [place] [address] September, [facility] [address] [id number] [address] [place] [address], [place] [address] Aug, [facility] [address] [id number] [address] [place] [address], [place] [address] Aug, [facility] [address] [id number] [address] [place] [address], [place] [address] Aug, [facility] [address] [id number] [address] [place] [address], [place] [address] Aug, [facility] [address] [id number] [address] [place] [address], [place] [address] Jul, [facility] [address] [id number] [address] [place] [address], [place] [address] Jun, [facility] [address] [id number] [address] [place] [address], [place] [address] 14 Jun, 2011 [facility] [address] [id number] [address] [place] [address], [place] [address] Jun, [facility] [address] [id number] [address] [place] [address], [place] [address] 07 Jun, 2011 [facility] [address] [id number] [address] [place] [address], [place] [address] 03 Jun, 2011 [facility] [address] [id number] [address] [place] [address], [place] [address] 13 May, 2011 [facility] [address] [id number] [address] [place] [address], [place] [address] 10 May, 2011 [facility] [address] [id number] [address] [place] [address], [place] [address] 09 May, 2011 [facility] [address] [id number] [address] [place] [address], [place] [address] May, [facility] [address] [id number] [address] [place] [address], [place] [address] Apr, [facility] [address] [id number] [address] [place] [address], [place] [address] Apr, [facility] [address] [id number] [address] [place] [address], [place] [address] Apr, [facility] [address] [id number] [address] [place] [address], [place] [id number] Mar, [facility] [address] [id number] [address] [place] [address], [place] [id number] Mar, [facility] [address] [id number] [address] [place] [address], [place] [id number] Mar, [facility] [address] [id number] [address] [place] [address], [place] [id number] Feb, [facility] [address] [id number] [address] [place] [address], [place] [address] Feb, [facility] [address] [id number] [address] [place] [address], [place] [id number] Feb, [facility] [address] [id number] [address] [place] [address], [place] [id number] Nov, [facility] [address] [id number] [address] [place] [address], [place] [id number] September, [facility] [address] [id number] [address] [place] [address], [place] [id number] Aug, [facility] [address] [id number] [address] [place] [address], [place] [address] Jul, [facility] [address] [id number] [address] [place] [address], [place] [id number] May, [facility] [address] [id number] [address] [place] [id number] Apr, [facility] [address] [id number] [address] [place] [id number] Apr, [facility] [address] [id number] [address] [place] [id number] Apr, [facility] [address] [id number] [address] [place] [id number] Apr, [facility] [address] [id number] [address] [place] [id number] Apr, IMMUNIZATIONS No Known Immunizations SOCIAL HISTORY [...]
--- OUTSIDE RECORDS SUMMARY | 2019-07-17 10:51 | XMS REPORT ---
Author Author Sujey GANDHI Organization [facility] Address [address] [place] [address] Care Team Providers Care Pattern Maker Name Role Phone WHIT GANDHI Unavailable PROBLEMS Type Condition ICD9-CM Code HRI14-RD Code Onset Dates Condition S tatus SNOMED Code Problem Diabetes E11.9 Active 66280285 Problem GERD (gastroesophageal reflux disease) K21.9 Active 977465461 Problem Anxiety disorder, unspecified F41.9 Active 924660084 Problem Hypertension I10 Active 0124267 3 Problem Other bipolar disorder F31.89 Active 08205569 Problem Fibromyalgia M79.7 Active 0076689 7 Problem Panic disorder with agoraphobia F40.01 Active 75232293 Problem Chronic obstructive pulmonary disease, unspecified J44.9 Active 50464984 Problem Lumbago with sciatica, left side M54.42 Active 321772691 Problem Migraine without aura and without status migrain osus, not intractable G43.009 Active 283084763 Problem Lumbago with sciatica, right side M54.41 Active 938657176 Problem Fibrocystic disease of right breast N60.11 Active 13803648 Problem Other chronic pain G89.29 Active 8 2175617 Problem Fibrocystic disease of left breast N60.12 Active 59198771 Problem Irritable bowel syndrome with constipation K58.1 Active 822162368 Problem Arthritis M19.90 Active 2738590 Problem Abnormal mammogram of right breast R92.8 Active 657045033 Problem Daytime somnolence R40.0 Active 1 71790590005 Problem Bipolar affective disorder, remission status unspecified F31.9 Active 40084894 Problem Chronic post-traumatic stress disorder (PTSD) F43. 12 Active 307435153 Problem Bipolar 1 disorder, depressed, moderate F31.32 Active 28084611 Problem Schizoaffective disorder, bipolar type F25.0 Active 41347822 Problem Irritable bowel syndrome with both constipation and diarrh ea K58.2 Active 12090245 Problem Slow transit constipation K59.01 Acti ve 79616924 Problem Essential tremor G25.0 Active 609 211622 Problem Acute non-recurrent maxillary sinusitis J01.00 Active 15473969 Problem Back pain M54.9 Active 954200900 Problem Bipolar 1 disorder, depressed, partial remission F 31.75 Active 58520642 Problem Attention deficit hyperactiv ity disorder (ADHD), predominantly inattentive type F90.0 Active 97396643 Problem Bipolar I disorder with depression F31.9 Active 88481012 Problem Panlobular emphysema J43.1 Active 5949948 Problem Akathisia G25.71 Active 145687439 Problem Mild persistent asthma without complication J45.30 Active 311729635 Problem Moderate persistent asthma without complication J4 5.40 Active 921578370 ALLERGIES No Information ENCOUNTERS Encounter Location Date Diagnosis [place] [address] [facility] [id number] [address] [place] [phone] Mar, [place] [address] [place] [id number] [place] [phone] Feb, Daytime somnolence R40.0 and Anxiety disorder, unspecified F41.9 [place] [address] [facility] [id number] [address] [place] [phone] Feb, [place] [address] [facility] [id number] [address] [place] [phone] Feb, [place] [address] [facility] [id number] [address] [place] [id number] Feb, Tremors of nervous system R2 5.1 and Acute swimmer''s ear of right side H60.331 [facility] [address] [id number] [address] [place] [phone] Feb, Cerebrovascular accident (CV A) due to occlusion of right cerebellar artery I63.541 and Hypertension I10 [facility] [address] [facility] [id number] [address] [place] [phone] Feb, [place] [address] [facility] [id number] [address] [place] [phone] Feb, Cerebrovascular accident (CV A) due to occlusion of right cerebellar artery I63.541 [facility] [address] [id number] [id number] Feb, Hyponatremia E87.1 [facility] [address] [facility] [id number] [address] [place] [phone] Feb, [facility] [address] [facility] [id number] [address] [place] [phone] Feb, Daytime somnolence R40.0 [facility] [address] [facility] [id number] [address] [place] [phone] Feb, [facility] [address] [facility] [id number] [address] [place] [phone] Jan, [facility] [address] [facility] [id number] [address] [place] [phone] Jan, [facility] [address] [facility] [id number] [address] [place] [phone] Jan, Chronic obstructive pulmonar y disease, unspecified J44.9 and Anxiety disorder, unspecified F41.9 [facility] [address] [facility] [id number] [address] [place] [address] Jan, Hypertension I10 ; Fibromyal medhat M79.7 and Lumbago with sciatica, left side M54.42 [facility] [address] [facility] [id number] [address] [place] [phone] Jan, [facility] [address] [facility] [id number] [address] [place] [phone] 20 Jan, 2018 Cerebrovascular accident (CV A) due to occlusion of right cerebellar artery I63.541 [facility] [address] [facility] [id number] [address] [place] [phone] 19 Jan, 2018 [facility] [address] [facility] [id number] [address] [place] [id number] 13 Jan, 2018 Arthritis M19.90 [facility] [address] [place] [id number] [address] [place] [phone] Jan, [place] [address] [place] [id number] [address] [place] [id number] Jan, Abnormal mammogram of right breast R92.8 [place] [address] [place] [id number] [address] [place] [phone] Dec, Daytime somnolence R40.0 and Right otitis media with effusion H65.91 [place] [address] [place] [id number] [address] [place] [phone] Dec, [place] [address] [place] [id number] [place] [phone] Dec, Cerebrovascular accident (CV A) due to occlusion of right cerebellar artery I63.541 [place] [address] [address] Dec, [place] [address] [address] Dec, [place] [address] [address] Nov, Bipolar 1 disorder, depresse d, partial remission F31.75 and Panic disorder with agoraphobia F40.01 [place] [address] [place] [id number] [address] [place] [phone] Nov, Panlobular emphysema J43.1 [place] [address] [place] [id number] [address] [place] [address] Nov, Cerebrovascular accident (CV A) due to occlusion of right cerebellar artery I63.541 and Acute non-recurrent maxillary sinusitis J01.00 [place] [address] [place] [id number] [address] [place] [phone] Nov, Panlobular emphysema J43.1 [place] [address] [place] [id number] [address] [place] [phone] Nov, [place] [address] [place] [id number] [address] [place] [phone] Nov, [facility] [address] [id number] [address] [place] [phone] Nov, [facility] [address] [id number] [address] [place] [phone] Nov, [facility] [address] [id number] [address] [place] [phone] Nov, [facility] [address] [id number] [address] [place] [phone] Nov, [facility] [address] [facility] [id number] [address] [place] [phone] Nov, [facility] [address] [facility] [id number] [address] [place] [phone] Nov, Mild persistent asthma witho ut complication J45.30 and Irritable bowel syndrome with both constipation and diarrhea K58.2 [facility] [id number] [place] [phone] Nov, [facility] [address] [facility] [id number] [address] [place] [phone] Oct, [facility] [address] [place] [id number] [address] [place] [id number] Oct, [facility] [id number] [place] [id number] Oct, Type 2 diabetes mellitus wit h diabetic neuropathy, unspecified whether usp insulin use E11.40 ; Diabetes E11.9 ; Slow transit constipation K59.01 ; Edema of both legs R60.0 and Dysfunction of right eustachian tube H69.81 [facility] [address] [facility] [id number] [address] [place] [phone] Oct, Frequent headaches R51 [facility] [address] [facility] [id number] [address] [place] [phone] Oct, [facility] [address] [id number] [address] [place] [phone] Oct, [facility] [address] [id number] [address] [place] [phone] Oct, [facility] [address] [id number] [address] [place] [phone] Oct, [facility] [address] [id number] [address] [place] [phone] Oct, [facility] [address] [id number] [address] [place] [phone] Oct, [facility] [address] [facility] [id number] [address] [place] [phone] Oct, [facility] [address] [facility] [id number] [address] [place] [phone] Oct, [facility] [address] [facility] [id number] [address] [place] [phone] September, Frequent headaches R51 [facility] [address] [facility] [id number] [address] [place] [id number] September, Bilateral otitis media with effusion H65.93 ; Dizziness R42 and Essential tremor G25.0 [facility] [address] [facility] [id number] [address] [place] [phone] September, Chronic obstructive pulmonar y disease, unspecified COPD type J44.9 [facility] [address] [facility] [id number] [address] [place] [phone] September, Chronic obstructive pulmonar y disease, unspecified COPD type J44.9 [facility] [address] [facility] [id number] [address] [place] [phone] September, Migraine without aura and wi thout status migrainosus, not intractable G43.009 [facility] [address] [facility] [id number] [address] [place] [phone] September, [facility] [address] [facility] [id number] [address] [place] [phone] September, [facility] [address] [facility] [id number] [address] [place] [phone] September, [facility] [address] [facility] [id number] [address] [place] [phone] September, Frequent headaches R51 [facility] [address] [facility] [id number] [address] [place] [phone] Aug, [facility] [address] [facility] [id number] [address] [place] [id number] Aug, Breast mass, right N63.10 [place] [address] [facility] [id number] [address] [place] [address] Aug, Breast lump N63.0 [place] [address] [place] [id number] [address] [place] [phone] Aug, [place] [id number] [place] [phone] Aug, Bipolar affective disorder, remission status unspecified F31.9 and Diabetes E11.9 [place] [address] [place] [id number] [address] [place] [phone] Aug, Diabetes E11.9 ; Schizoaffec tive disorder, bipolar type F25.0 ; Pharyngitis due to other organism J02.8 ; Panlobular emphysema J43.1 and Irritable bowel syndrome with both constipation and diarrhea K58.2 [place] [address] [place] [id number] [address] [place] [phone] Aug, Abnormal mammogram R92.8 [place] [address] [facility] [id number] [address] [place] [id number] Aug, [place] [address] [place] [id number] [address] [place] [phone] Aug, Bipolar 1 disorder, depresse d, moderate F31.32 ; Panic disorder with agoraphobia F40.01 and Chronic post-traumatic stress disorder (PTSD) F43.12 [facility] [address] [facility] [id number] [address] [place] [id number] Aug, [facility] [address] [facility] [id number] [address] [place] [phone] Aug, [facility] [address] [facility] [id number] [address] [place] [phone] Aug, [facility] [address] [facility] [id number] [address] [place] [id number] Jul, [facility] [address] [facility] [id number] [address] [place] [id number] Jul, Mild persistent asthma witho ut complication J45.30 [facility] [address] [facility] [id number] [address] [place] [address] Jul, Mild persistent asthma witho ut complication J45.30 [facility] [address] [facility] [id number] [address] [place] [phone] 15 Jul, 2017 Bipolar affective disorder, remission status unspecified F31.9 ; Diabetes E11.9 and Irritable bowel syndrome with constipation K58.1 [facility] [address] [facility] [id number] [address] [place] [phone] Jul, [facility] [address] [facility] [id number] [address] [place] [phone] Jul, [facility] [address] [facility] [id number] [address] [place] [phone] Jul, Frequent headaches R51 [facility] [address] [facility] [id number] [address] [place] [phone] 07 Jul, 2017 [facility] [address] [facility] [id number] [address] [place] [phone] Jul, [facility] [address] [facility] [id number] [address] [place] [id number] Jul, [facility] [address] [facility] [id number] [address] [place] [address] Jul, Frequent headaches R51 ; Fib rocystic disease of left breast N60.12 ; Fibrocystic disease of right breast N60.11 and Diabetes E11.9 [facility] [address] [address] Jul, [facility] [address] [address] Jul, [facility] [address] [address] Jun, Exudative tonsillitis J03.90 [place] [address] [address] Jun, [place] [address] [address] 19 Jun, 2017 [place] [address] [address] 15 Jun, 2017 Mild persistent asthma witho ut complication J45.30 ; Chronic obstructive pulmonary disease, unspecified COPD type J44.9 and Exudative tonsillitis J03.90 [place] [address] [address] 13 Jun, 2017 Encounter for immunization Z 23 [place] [address] [place] [id number] [address] [place] [phone] Jun, [place] [address] [place] [id number] [address] [place] [address] Jun, [facility] [address] [place] [id number] [address] [place] [address] Jun, [facility] [address] [address] 06 Jun, 2017 Tonsillitis J03.90 [facility] [address] [place] [id number] [address] [place] [address] 05 Jun, 2017 [place] [address] [id number] 03 Jun, 2017 Acute non-recurrent maxillar y sinusitis J01.00 [facility] [address] [address] 02 Jun, 2017 [facility] [address] [address] May, [facility] [address] [address] May, [facility] [address] [address] May, GERD (gastroesophageal reflu x disease) K21.9 [place] [address] [address] May, Migraine without aura and wi thout status migrainosus, not intractable G43.009 [place] [address] [address] May, [facility] [address] [address] May, [place] [address] [address] May, Panlobular emphysema J43.1 a nd Acute non-recurrent maxillary sinusitis J01.00 [place] [address] [address] May, Bipolar 1 disorder, depresse d, moderate F31.32 ; Panic disorder with agoraphobia F40.01 and Akathisia G25.71 [place] [address] [address] Apr, [place] [address] [address] Apr, [facility] [address] [address] Apr, Acute non-recurrent maxillar y sinusitis J01.00 [facility] [address] [id number] [address] [place] [address] 07 Apr, 2017 Panlobular emphysema J43.1 [facility] [address] [id number] [address] [place] [address] 04 Apr, 2017 [facility] [address] [id number] [address] [place] [id number] 04 Apr, 2017 Exudative tonsillitis J03.90 and Sore throat J02.9 [facility] [address] [id number] [address] [place] [id number] 17 Mar, 2017 [facility] [address] [id number] [address] [place] [id number] 15 Mar, 2017 Acute non-recurrent maxillar y sinusitis J01.00 [facility] [address] [id number] [address] [place] [id number] 13 Mar, 2017 [facility] [address] [id number] [address] [place] [id number] 09 Mar, 2017 Panlobular emphysema J43.1 a nd Diabetes E11.9 [facility] [address] [id number] [address] [place] [phone] 06 Mar, 2017 [facility] [address] [id number] [address] [place] [address] Feb, Wheezing R06.2 and Acute rec urrent pansinusitis J01.41 [facility] [address] [id number] [address] [place] [address] Feb, [facility] [address] [id number] [address] [place] [id number] Feb, Acute non-recurrent maxillar y sinusitis J01.00 [facility] [address] [id number] [address] [place] [id number] 16 Oct, 2017 Chronic obstructive pulmonar y disease, unspecified J44.9 [facility] [address] [id number] [address] [place] [id number] Feb, Hypoxemia R09.02 and Chronic obstructive pulmonary disease, unspecified J44.9 [facility] [address] [id number] [address] [place] [id number] 28 Jan, 2017 Bipolar 1 disorder, depresse d, moderate F31.32 ; Panic disorder with agoraphobia F40.01 ; Chronic post-traumatic stress disorder (PTSD) F43.12 ; Diabetes E11.9 and Moderate persistent asthma without complication J45.40 [facility] [address] [id number] [address] [place] [id number] Jan, [facility] [address] [id number] [address] [place] [id number] Jan, Acute non-recurrent maxillar y sinusitis J01.00 [facility] [address] [id number] [address] [place] [id number] 18 Jan, 2017 [facility] [address] [id number] [address] [place] [phone] Jan, [facility] [address] [id number] [address] [place] [id number] Jan, [facility] J[facility].40 and Hypoxemia R09.02 [facility] [address] [id number] [address] [place] [id number] Jan, Moderate persistent asthma w ithout complication J45.40 and Hypoxemia R09.02 [facility] [address] [id number] [address] [place] [phone] Jan, [facility] [address] [id number] [address] [place] [id number] Dec, Acute non-recurrent maxillar y sinusitis J01.00 [facility] [address] [id number] [address] [place] [id number] Dec, Chronic obstructive pulmonar y disease, unspecified J44.9 [facility] [address] [id number] [address] [place] [id number] Dec, [facility] [address] [id number] [address] [place] [id number] Dec, Mild persistent asthma witho ut complication J45.30 and Other chronic pain G89.29 [facility] [address] [id number] [address] [place] [phone] Nov, [facility] [address] [id number] [address] [place] [id number] Nov, Acute non-recurrent maxillar y sinusitis J01.00 [facility] [address] [id number] [address] [place] [id number] Nov, [facility] [address] [facility] [id number] [address] [place] [phone] Nov, [facility] [address] [facility] [id number] [address] [place] [phone] Oct, [facility] [address] [facility] [id number] [address] [place] [phone] Oct, Bipolar 1 disorder, depresse d, partial remission F31.75 ; Panic disorder with agoraphobia F40.01 and Chronic post-traumatic stress disorder (PTSD) F43.12 [facility] [address] [facility] [id number] [address] [place] [id number] Oct, Acute non-recurrent maxillar y sinusitis J01.00 [facility] [address] [id number] [address] [place] [phone] Oct, [facility] [address] [facility] [id number] [address] [place] [phone] Oct, Diabetes E11.9 [facility] [address] [facility] [id number] [address] [place] [phone] September, Diabetes E11.9 [facility] [address] [facility] [id number] [address] [place] [phone] September, Diabetes E11.9 and Sinus tac hycardia R00.0 [facility] [address] [facility] [id number] [address] [place] [phone] September, [facility] [address] [facility] [id number] [address] [place] [phone] September, [facility] [address] [place] [id number] [place] [phone] Aug, Diabetes E11.9 and Lumbago w ith sciatica, right side M54.41 [facility] [address] [id number] [address] [place] [id number] Aug, [facility] [address] [id number] [address] [place] [id number] Jul, Bipolar 1 disorder, depresse d, moderate F31.32 ; Panic disorder with agoraphobia F40.01 and Chronic post-traumatic stress disorder (PTSD) F43.12 [facility] [id number] [place] [id number] Jul, Sore throat J02.9 [facility] [address] [id number] [address] [place] [phone] Jul, [facility] [address] [id number] [address] [place] [phone] Jul, [facility] [address] [id number] [address] [place] [phone] Jul, [facility] [address] [id number] [address] [place] [phone] Jul, [facility] [address] [facility] [id number] [address] [place] [phone] Jul, Sore throat J02.9 and Pharyn gitis, unspecified etiology J02.9 [facility] [address] [id number] [address] [place] [phone] Jun, [facility] [address] [id number] [address] [place] [phone] Jun, Diabetes E11.9 [facility] [address] [id number] [place] [address] Jun, [facility] [address] [id number] [address] [place] [phone] Jun, [facility] [address] [id number] [address] [place] [phone] Jun, [facility] [address] [id number] [address] [place] [phone] Jun, [facility] [address] [id number] [address] [place] [phone] Jun, [facility] [address] [id number] [address] [place] [phone] Jun, [facility] [address] [id number] [address] [place] [phone] Jun, [facility] [address] [id number] [address] [place] [phone] Jun, [facility] [address] [id number] [address] [place] [phone] May, Diabetes E11.9 ; Other chron ic pain G89.29 ; Acute recurrent maxillary sinusitis J01.01 ; Bipolar I disorder with depression F31.9 and Anxiety disorder, unspecified F41.9 [facility] [address] [id number] [address] [place] [phone] May, [facility] [address] [id number] [address] [place] [phone] May, Diabetes E11.9 ; Bipolar I d isorder with depression F31.9 ; Anxiety disorder, unspecified F41.9 ; Other chronic pain G89.29 and Acute recurrent maxillary sinusitis J01.01 [facility] [address] [id number] [address] [place] [phone] May, [facility] [address] [id number] [address] [place] [address] May, Attention deficit hyperactiv ity disorder (ADHD), predominantly inattentive type F90.0 [facility] [address] [facility] [id number] [address] [place] [phone] May, [place] [address] [facility] [id number] [address] [place] [phone] Apr, Attention deficit hyperactiv ity disorder (ADHD), predominantly inattentive type F90.0 and Non-seasonal allergic rhinitis due to other allergic trigger J30.89 [place] [address] [facility] [id number] [address] [place] [phone] Apr, Bipolar 1 disorder, depresse d, moderate F31.32 ; Panic disorder with agoraphobia F40.01 and Chronic post-traumatic stress disorder (PTSD) F43.12 [place] [address] [place] [id number] [address] [place] [phone] Apr, Dental examination Z01.20 [place] [address] [facility] [id number] [address] [place] [phone] Mar, [place] [address] [facility] [id number] [address] [place] [address] Mar, [place] [address] [facility] [id number] [address] [place] [phone] Mar, Bipolar I disorder with depr ession F31.9 and Anxiety disorder, unspecified F41.9 [place] [address] [facility] [id number] [address] [place] [phone] 08 Mar, 2016 Panic disorder with agorapho syd F40.01 ; Bipolar 1 disorder, depressed, moderate F31.32 and Chronic post-traumatic stress disorder (PTSD) F43.12 [place] [address] [facility] [id number] [address] [place] [phone] Mar, [place] [address] [id number] [address] [place] [phone] Mar, Dental caries K02.9 [place] [address] [facility] [id number] [address] [place] [phone] 24 Feb, 2016 Lumbago with sciatica, left side M54.42 ; Lumbago with sciatica, right side M54.41 and Other chronic pain G89.29 [place] [address] [facility] [id number] [address] [place] [phone] 17 Feb, 2016 [place] [address] [place] [id number] [address] [place] [phone] 14 Feb, 2016 [place] [address] [place] [id number] [place] [phone] 13 Feb, 2016 Bipolar I disorder with depr ession F31.9 ; PTSD (post-traumatic stress disorder) F43.10 and Mood disorder F39 [place] [address] [place] [id number] [address] [place] [phone] Feb, [place] [address] [place] [id number] [address] [place] [phone] 11 Feb, 2016 Dental examination Z01.20 [place] [address] [place] [id number] [address] [place] [phone] 07 Feb, 2016 [facility] [address] [facility] [id number] [address] [place] [phone] 03 Feb, 2016 Acute bronchitis, unspecifie d organism J20.9 [place] [address] [id number] [address] [place] [address] 26 Jan, 2016 Mood disorder F39 ; Migraine without aura and without status migrainosus, not intractable G43.009 ; Irritable bowel syndrome, unspecified type K58.9 ; Diabetes E11.9 and Encounter for immunization Z23 [place] [address] [facility] [id number] [address] [place] [phone] 15 Jan, 2016 [place] [address] [facility] [id number] [address] [place] [phone] Jan, [facility] [address] [facility] [id number] [address] [place] [phone] Jan, [facility] [address] [facility] [id number] [address] [place] [phone] Jan, [facility] [address] [facility] [id number] [address] [place] [phone] Jan, [facility] [address] [place] [id number] [address] [place] [phone] Dec, Bipolar I disorder with depr ession F31.9 ; PTSD (post-traumatic stress disorder) F43.10 and Panic disorder with agoraphobia F40.01 [facility] [address] [facility] [id number] [address] [place] [phone] Dec, Chronic obstructive pulmonar y disease, unspecified COPD type J44.9 ; Tremor R25.1 and Anxiety F41.9 [facility] [address] [facility] [id number] [address] [place] [phone] Dec, [facility] [address] [place] [id number] [address] [place] [phone] Nov, Tremors of nervous system R2 5.1 and Cramping of feet R25.2 [facility] [address] [place] [id number] [address] [place] [phone] Nov, [facility] [address] [facility] [id number] [address] [place] [phone] Nov, [facility] [address] [facility] [id number] [address] [place] [phone] Oct, Chronic obstructive pulmonar y disease, unspecified J44.9 [facility] [address] [facility] [id number] [address] [place] [phone] Oct, [facility] [address] [facility] [id number] [address] [place] [phone] Oct, Tremor R25.1 [facility] [address] [facility] [id number] [address] [place] [phone] Oct, Bipolar I disorder with depr ession F31.9 ; Diabetes E11.9 ; PTSD (post-traumatic stress disorder) F43.10 and Panic disorder with agoraphobia F40.01 [facility] [address] [facility] [id number] [address] [place] [phone] Oct, Mood disorder F39 [place] [address] [place] [id number] [address] [place] [phone] September, [place] [address] [facility] [id number] [address] [place] [phone] September, Diabetes E11.9 ; Bipolar I d isorder with depression F31.9 ; PTSD (post-traumatic stress disorder) F43.10 and Panic disorder with agoraphobia F40.01 [place] [address] [place] [id number] [address] [place] [phone] September, Mood disorder F39 ; Schizoaf fective disorder, unspecified type F25.9 ; Arthritis M19.90 ; Tremor R25.1 ; Acute non-recurrent frontal sinusitis J01.10 and Blood in stool K92.1 [place] [address] [place] [id number] [address] [place] [phone] September, [place] [address] [facility] [id number] [address] [place] [phone] September, Chronic obstructive pulmonar y disease, unspecified J44.9 [place] [address] [facility] [id number] [address] [place] [phone] September, Diabetes E11.9 [place] [address] [place] [id number] [address] [place] [phone] Aug, Other bipolar disorder F31.8 9 and Anxiety disorder, unspecified F41.9 [place] [address] [facility] [id number] [address] [place] [phone] Aug, [place] [address] [id number] [address] [place] [phone] 19 Aug, 2015 Diabetes E11.9 [facility] [address] [id number] [address] [place] [phone] 18 Aug, 2015 [facility] [address] [facility] [id number] [address] [place] [phone] 14 Aug, 2015 Diabetes E11.9 ; Fatigue R53 .83 and Dizziness R42 [facility] [address] [id number] [address] [place] [phone] 13 Aug, 2015 Other bipolar disorder F31.8 9 [facility] [address] [id number] [address] [place] [phone] 07 Aug, 2015 Generalized anxiety disorder F41.1 [facility] [address] [facility] [id number] [address] [place] [phone] Aug, Other bipolar disorder F31.8 9 and Anxiety disorder, unspecified F41.9 [facility] [address] [id number] [address] [place] [phone] Aug, [facility] [address] [id number] [address] [place] [phone] 29 Jul, 2015 [facility] [address] [facility] [id number] [address] [place] [phone] 24 Jul, 2015 [facility] [address] [facility] [id number] [address] [place] [phone] Jul, Bronchitis J40 [facility] [address] [id number] [address] [place] [phone] Jul, Anxiety disorder F41.9 [facility] [address] [facility] [id number] [address] [place] [phone] Jul, Other bipolar disorder F31.8 9 and Anxiety disorder, unspecified F41.9 [facility] [address] [id number] [address] [place] [phone] 18 Jul, 2015 Other bipolar disorder F31.8 9 and Fibromyalgia M79.7 [facility] [address] [place] [id number] [address] [place] [phone] Jul, [facility] [address] [id number] Jul, [facility] [address] [place] [id number] [address] [place] [phone] Jul, [facility] [address] [place] [id number] [place] [phone] Jul, Other bipolar disorder F31.8 9 and Anxiety disorder, unspecified F41.9 [facility] [address] [id number] Jun, GERD (gastroesophageal reflu x disease) K21.9 [facility] [address] [id number] Jun, [facility] [address] [address] May, [facility] [address] [id number] May, Diabetes E11.9 ; Back pain M 54.9 ; GERD (gastroesophageal reflux disease) K21.9 ; Hypertension I10 and Peripheral neuropathy G62.9 [facility] [address] [phone] Mar, [facility] [address] [address] Mar, [facility] [address] [id number] Mar, Acute sinusitis J01.90 and O titis media, left H66.92 [facility] [address] [place] [id number] [address] [place] [phone] Feb, [facility] [address] [id number] Feb, [facility] [address] [facility] [id number] [address] [place] [phone] Feb, [facility] [address] [facility] [id number] [address] [place] [phone] Feb, [facility] [address] [facility] [id number] [address] [place] [phone] Jan, [facility] [address] [facility] [id number] [address] [place] [id number] Jan, Diabetes 250.00 and Back higinio n 724.5 [facility] [address] [facility] [id number] [address] [place] [phone] Jan, [facility] [address] [facility] [id number] [address] [place] [address] Dec, Diabetes 250.00 ; Benign ess ential hypertension 401.1 and Allergic rhinitis 477.9 [facility] [address] [place] [id number] [address] [place] [phone] Dec, [facility] [address] [facility] [id number] [address] [place] [phone] Dec, [facility] [address] [place] [id number] [address] [place] [id number] Dec, Psychosis 298.9 [facility] [address] [place] [id number] [address] [place] [phone] Dec, Medication side effect 995.2 0 and Generalized anxiety disorder 300.02 [facility] [address] [facility] [id number] [address] [place] [phone] Dec, Acquired cognitive dysfuncti on 294.9 [facility] [address] [facility] [id number] [address] [place] [phone] Dec, [facility] [address] [facility] [id number] [address] [place] [phone] Dec, Unspecified myalgia and myos itis 729.1 and Generalized anxiety disorder 300.02 [facility] [address] [id number] [address] [place] [phone] Nov, [facility] [address] [id number] [address] [place] [phone] Nov, [facility] [address] [facility] [id number] [address] [place] [phone] Nov, [facility] [address] [id number] [address] [place] [phone] Nov, Upper respiratory infection 465.9 and Chronic airway obstruction, not elsewhere classified 496 [facility] [address] [id number] [address] [place] [phone] Nov, Hyponatremia 276.1 [facility] [address] [facility] [id number] [address] [place] [phone] Oct, [facility] [address] [facility] [id number] [address] [place] [phone] Oct, [facility] [address] [id number] [address] [place] [phone] Oct, [facility] [address] [facility] [id number] [address] [place] [phone] Oct, [facility] [address] [facility] [id number] [address] [place] [phone] Oct, Hyponatremia 276.1 [facility] [address] [facility] [id number] [address] [place] [phone] Oct, [facility] [address] [facility] [id number] [address] [place] [phone] Oct, [facility] [address] [facility] [id number] [address] [place] [phone] Oct, Generalized anxiety disorder 300.02 [facility] [address] [facility] [id number] [address] [place] [id number] Oct, Generalized anxiety disorder 300.02 and Diabetes 250.00 [facility] [address] [id number] [address] [place] [address], [place] [address] 14 Aug, 2014 [facility] [address] [id number] [address] [place] [address], [place] [address] 13 Aug, 2014 [facility] [address] [id number] [address] [place] [address], [place] [address] 19 Jul, 2013 [facility] [address] [id number] [address] [place] [address], [place] [address] Jul, [facility] [address] [id number] [address] [place] [address], [place] [address] Jun, [facility] [address] [id number] [address] [place] [address], [place] [address] Jun, [facility] [address] [id number] [address] [place] [address], [place] [address] Jun, [facility] [address] [id number] [address] [place] [address], [place] [address] Jun, [facility] [address] [id number] [address] [place] [address], [place] [address] Jun, [facility] [address] [id number] [address] [place] [address], [place] [address] May, [facility] [address] [id number] [address] [place] [address], [place] [address] May, [facility] [address] [id number] [address] [place] [address], [place] [address] Apr, [facility] [address] [id number] [address] [place] [address], [place] [address] Apr, [facility] [address] [id number] [address] [place] [address], [place] [address] Apr, [facility] [address] [id number] [address] [place] [address], [place] [address] Apr, [facility] [address] [id number] [address] [place] [address], [place] [address] Apr, [facility] [address] [id number] [address] [place] [address], [place] [address] Apr, [facility] [address] [id number] [address] [place] [address], [place] [address] Apr, [facility] [address] [id number] [address] [place] [address], [place] [address] Apr, [facility] [address] [id number] [address] [place] [address], [place] [address] Feb, [facility] [address] [id number] [address] [place] [address], [place] [address] Feb, [facility] [address] [id number] [address] [place] [address], [place] [address] Jan, [facility] [address] [id number] [address] [place] [address], [place] [address] Jan, [facility] [address] [id number] [address] [place] [address], [place] [address] Dec, [facility] [address] [id number] [address] [place] [address], [place] [address] Dec, [facility] [address] [id number] [address] [place] [address], [place] [address] Dec, [facility] [address] [id number] [address] [place] [address], [place] [address] Nov, [facility] [address] [id number] [address] [place] [address], [place] [address] Nov, [facility] [address] [id number] [address] [place] [address], [place] [address] Nov, [facility] [address] [id number] [address] [place] [address], [place] [address] Oct, [facility] [address] [id number] [address] [place] [address], [place] [address] Oct, [facility] [address] [id number] [address] [place] [address], [place] [address] Oct, [facility] [address] [id number] [address] [place] [address], [place] [address] September, [facility] [address] [id number] [address] [place] [address], [place] [address] September, [facility] [address] [id number] [address] [place] [address], [place] [address] September, [facility] [address] [id number] [address] [place] [address], [place] [address] Aug, [facility] [address] [id number] [address] [place] [address], [place] [address] Aug, [facility] [address] [id number] [address] [place] [address], [place] [address] Aug, [facility] [address] [id number] [address] [place] [address], [place] [address] 16 Aug, 2011 [facility] [address] [id number] [address] [place] [address], [place] [address] Jul, [facility] [address] [id number] [address] [place] [address], [place] [address] 21 Jun, 2011 [facility] [address] [id number] [address] [place] [address], [place] [address] 14 Jun, 2011 [facility] [address] [id number] [address] [place] [address], [place] [address] 13 Jun, 2011 [facility] [address] [id number] [address] [place] [address], [place] [address] 07 Jun, 2011 [facility] [address] [id number] [address] [place] [address], [place] [address] 03 Jun, 2011 [facility] [address] [id number] [address] [place] [address], [place] [address] 13 May, 2011 [facility] [address] [id number] [address] [place] [address], [place] [address] May, [facility] [address] [id number] [address] [place] [address], [place] [address] May, [facility] [address] [id number] [address] [place] [address], [place] [address] May, [facility] [address] [id number] [address] [place] [address], [place] [address] Apr, [facility] [address] [id number] [address] [place] [address], [place] [address] Apr, [facility] [address] [id number] [address] [place] [address], [place] [address] Apr, [facility] [address] [id number] [address] [place] [address], [place] [address] Mar, [facility] [address] [id number] [address] [place] [address], [place] [address] Mar, [facility] [address] [id number] [address] [place] [address], [place] [address] Mar, [facility] [address] [id number] [address] [place] [address], [place] [address] Feb, [facility] [address] [id number] [address] [place] [address], [place] [address] Feb, [facility] [address] [id number] [address] [place] [address], [place] [address] Feb, [facility] [address] [id number] [address] [place] [phone] Nov, [facility] [address] [id number] [address] [place] [address], [place] [address] September, [facility] [address] [id number] [address] [place] [address], [place] [address] 12 Aug, 2010 [facility] [address] [id number] [address] [place] [address], [place] [address] 14 Jul, 2010 [facility] [address] [id number] [address] [place] [id number] 11 May, 2010 [facility] [address] [facility] [id number] [address] [place] [phone] Apr, [facility] [address] [facility] [id number] [address] [place] [phone] Apr, [facility] [address] [facility] [id number] [address] [place] [phone] Apr, [facility] [address] [facility] [id number] [address] [place] [phone] Apr, [facility] [address] [facility] [id number] [address] [place] [id number] Apr, IMMUNIZATIONS No Known Immunizations SOCIAL HISTORY Never Assessed REASON FOR VISIT Controlled med question PLAN OF CARE VITAL SIGNS MEDICATIONS Medication Instructions Dosage Frequency Start Date End Date Duration S tatus Levocetirizine Dihydrochloride 5 MG Orally Once a day 1 tablet i n the evening 24h Dec, 30 day(s) Active Lorazepam 1 MG Orally in the [...]
--- OUTSIDE RECORDS SUMMARY | 2019-07-17 10:52 | XMS REPORT ---
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 Name Role Phone WHIT GANDHI Unavailable PROBLEMS Type Condition ICD9-CM Code IRJ80-GH Code Onset Dates Condition S tatus SNOMED Code Problem Diabetes E11.9 Active 59333840 Problem GERD (gastroesophageal reflux disease) K21.9 Active 200864339 Problem Anxiety disorder, unspecified F41.9 Active 163912966 Problem Hypertension I10 Active 0402488 3 Problem Other bipolar disorder F31.89 Active 96642892 Problem Fibromyalgia M79.7 Active 2814556 7 Problem Panic disorder with agoraphobia F40.01 Active 90468151 Problem Chronic obstructive pulmonary disease, unspecified J44.9 Active 50472088 Problem Lumbago with sciatica, left side M54.42 Active 851712331 Problem Migraine without aura and without status migrain osus, not intractable G43.009 Active 462432054 Problem Lumbago with sciatica, right side M54.41 Active 212751181 Problem Fibrocystic disease of right breast N60.11 Active 63262090 Problem Other chronic pain G89.29 Active 8 0950274 Problem Fibrocystic disease of left breast N60.12 Active 62011566 Problem Irritable bowel syndrome with constipation K58.1 Active 264600976 Problem Arthritis M19.90 Active 8168007 Problem Abnormal mammogram of right breast R92.8 Active 138953817 Problem Daytime somnolence R40.0 Active 1 49965274862 Problem Bipolar affective disorder, remission status unspecified F31.9 Active 05339231 Problem Chronic post-traumatic stress disorder (PTSD) F43. 12 Active 676896159 Problem Bipolar 1 disorder, depressed, moderate F31.32 Active 50283961 Problem Schizoaffective disorder, bipolar type F25.0 Active 02276228 Problem Irritable bowel syndrome with both constipation and diarrh ea K58.2 Active 82364905 Problem Slow transit constipation K59.01 Acti ve 88855989 Problem Essential tremor G25.0 Active 609 380625 Problem Acute non-recurrent maxillary sinusitis J01.00 Active 84905900 Problem Back pain M54.9 Active 082524806 Problem Bipolar 1 disorder, depressed, partial remission F 31.75 Active 69735500 Problem Attention deficit hyperactiv ity disorder (ADHD), predominantly inattentive type F90.0 Active 92852030 Problem Bipolar I disorder with depression F31.9 Active 72388227 Problem Panlobular emphysema J43.1 Active 2325481 Problem Akathisia G25.71 Active 627495758 Problem Mild persistent asthma without complication J45.30 Active 035276919 Problem Moderate persistent asthma without complication J4 5.40 Active 907843705 ALLERGIES No Information ENCOUNTERS Encounter Location Date Diagnosis [place] [address] [place] [id number] [place] [phone] Mar, [place] [address] [place] [phone] Mar, [place] [address] [place] [id number] [place] [phone] Feb, [place] [address] [facility] [id number] [address] [place] [phone] Feb, [place] [address] [place] [id number] [place] [phone] Feb, Tremors of nervous system R2 5.1 and Acute swimmer''s ear of right side H60.331 [place] [address] [facility] [id number] [address] [place] [address] Feb, Cerebrovascular accident (CV A) due to occlusion of right cerebellar artery I63.541 and Hypertension I10 [facility] [address] [facility] [id number] [address] [place] [phone] Feb, [place] [address] [facility] [id number] [address] [place] [phone] Feb, Cerebrovascular accident (CV A) due to occlusion of right cerebellar artery I63.541 [facility] [address] [id number] [id number] Feb, Hyponatremia E87.1 [facility] [address] [facility] [id number] [address] [place] [address] Feb, [facility] [address] [facility] [id number] [address] [place] [phone] Feb, Daytime somnolence R40.0 [facility] [address] [facility] [id number] [address] [place] [phone] Feb, [facility] [address] [place] [id number] [place] [phone] Jan, [facility] [address] [address] Jan, [facility] [address] [place] [id number] [place] [address] Jan, Chronic obstructive pulmonar y disease, unspecified J44.9 and Anxiety disorder, unspecified F41.9 [facility] [address] [place] [phone] Jan, Hypertension I10 ; Fibromyal medhat M79.7 and Lumbago with sciatica, left side M54.42 [facility] [address] [place] [address] 26 Jan, 2018 [facility] [address] [place] [id number] [place] [phone] 20 Jan, 2018 Cerebrovascular accident (CV A) due to occlusion of right cerebellar artery I63.541 [facility] [address] [facility] [id number] [address] [place] [phone] 19 Jan, 2018 [facility] [address] [place] [id number] [place] [phone] 13 Jan, 2018 Arthritis M19.90 [facility] [address] [place] [id number] [place] [phone] 07 Jan, 2018 [place] [address] [facility] [id number] [address] [place] [phone] Jan, Abnormal mammogram of right breast R92.8 [place] [address] [place] [id number] [place] [address] Dec, Daytime somnolence R40.0 and Right otitis media with effusion H65.91 [place] [address] [facility] [id number] [address] [place] [address] Dec, [place] [address] [facility] [id number] [address] [place] [address] Dec, Cerebrovascular accident (CV A) due to occlusion of right cerebellar artery I63.541 [place] [address] [place] [id number] [place] [address] Dec, [place] [address] [place] [id number] [place] [phone] Dec, [place] [address] [place] [id number] [place] [address] Nov, Bipolar 1 disorder, depresse d, partial remission F31.75 and Panic disorder with agoraphobia F40.01 [place] [address] [place] [id number] [place] [address] Nov, Panlobular emphysema J43.1 [place] [address] [place] [id number] [place] [address] Nov, Cerebrovascular accident (CV A) due to occlusion of right cerebellar artery I63.541 and Acute non-recurrent maxillary sinusitis J01.00 [place] [address] [facility] [id number] [address] [place] [address] Nov, Panlobular emphysema J43.1 [place] [address] [facility] [id number] [address] [place] [phone] Nov, [place] [address] [place] [id number] [place] [address] Nov, [facility] [address] [id number] [address] [place] [phone] Nov, [facility] [address] [id number] [address] [place] [phone] Nov, [facility] [address] [id number] [address] [place] [phone] Nov, [facility] [address] [facility] [id number] [address] [place] [phone] Nov, [facility] [address] [id number] [address] [place] [phone] Nov, [facility] [address] [facility] [id number] [address] [place] [phone] Nov, Mild persistent asthma witho ut complication J45.30 and Irritable bowel syndrome with both constipation and diarrhea K58.2 [facility] [address] [facility] [id number] [address] [place] [address] Nov, [facility] [address] [facility] [id number] [address] [place] [phone] Oct, [facility] [address] [facility] [id number] [address] [place] [phone] Oct, [facility] [address] [facility] [id number] [address] [place] [phone] Oct, Type 2 diabetes mellitus wit h diabetic neuropathy, unspecified whether long term care social worker insulin use E11.40 ; Diabetes E11.9 ; Slow transit constipation K59.01 ; Edema of both legs R60.0 and Dysfunction of right eustachian tube H69.81 [facility] [address] [facility] [id number] [address] [place] [phone] Oct, Frequent headaches R51 [facility] [address] [facility] [id number] [address] [place] [phone] Oct, [facility] [address] [facility] [id number] [address] [place] [phone] Oct, [facility] [address] [facility] [id number] [address] [place] [phone] Oct, [facility] [address] [facility] [id number] [address] [place] [phone] Oct, [facility] [address] [facility] [id number] [address] [place] [phone] Oct, [facility] [address] [facility] [id number] [address] [place] [phone] Oct, [facility] [address] [facility] [id number] [address] [place] [phone] Oct, [facility] [address] [facility] [id number] [address] [place] [phone] Oct, [facility] [address] [place] [id number] [place] [phone] September, Frequent headaches R51 [facility] [address] [facility] [id number] [address] [place] [phone] September, Bilateral otitis media with effusion H65.93 ; Dizziness R42 and Essential tremor G25.0 [facility] [address] [facility] [id number] [address] [place] [phone] September, Chronic obstructive pulmonar y disease, unspecified COPD type J44.9 [facility] [address] [facility] [id number] [address] [place] [phone] September, Chronic obstructive pulmonar y disease, unspecified COPD type J44.9 [facility] [address] [facility] [id number] [address] [place] [address] September, Migraine without aura and wi thout status migrainosus, not intractable G43.009 [facility] [address] [facility] [id number] [address] [place] [address] September, [facility] [address] [facility] [id number] [address] [place] [phone] September, [facility] [address] [facility] [id number] [address] [place] [phone] September, [facility] [address] [facility] [id number] [address] [place] [phone] September, Frequent headaches R51 [facility] [address] [facility] [id number] [address] [place] [address] Aug, [facility] [address] [place] [id number] [place] [address] Aug, Breast mass, right N63.10 [place] [address] [facility] [id number] [address] [place] [address] Aug, Breast lump N63.0 [place] [address] [facility] [id number] [address] [place] [phone] Aug, [place] [address] [place] [id number] [place] [phone] Aug, Bipolar affective disorder, remission status unspecified F31.9 and Diabetes E11.9 [place] [address] [place] [address] Aug, Diabetes E11.9 ; Schizoaffec tive disorder, bipolar type F25.0 ; Pharyngitis due to other organism J02.8 ; Panlobular emphysema J43.1 and Irritable bowel syndrome with both constipation and diarrhea K58.2 [place] [address] [place] [id number] [place] [address] Aug, Abnormal mammogram R92.8 [place] [address] [place] [id number] [place] [phone] Aug, [place] [address] [place] [id number] [place] [address] Aug, Bipolar 1 disorder, depresse d, moderate F31.32 ; Panic disorder with agoraphobia F40.01 and Chronic post-traumatic stress disorder (PTSD) F43.12 [place] [address] [place] [id number] [place] [phone] Aug, [facility] [address] [id number] [address] [place] [phone] Aug, [facility] [address] [facility] [id number] [address] [place] [phone] Aug, [facility] [address] [facility] [id number] [address] [place] [phone] Jul, [facility] [address] [facility] [id number] [address] [place] [address] Jul, Mild persistent asthma witho ut complication J45.30 [facility] [address] [facility] [id number] [address] [place] [phone] 19 Jul, 2017 Mild persistent asthma witho ut complication J45.30 [facility] [address] [facility] [id number] [address] [place] [phone] 15 Jul, 2017 Bipolar affective disorder, remission status unspecified F31.9 ; Diabetes E11.9 and Irritable bowel syndrome with constipation K58.1 [facility] [address] [facility] [id number] [address] [place] [phone] Jul, [facility] [address] [facility] [id number] [address] [place] [phone] Jul, [facility] [address] [facility] [id number] [address] [place] [phone] Jul, Frequent headaches R51 [facility] [address] [facility] [id number] [address] [place] [phone] Jul, [facility] [address] [id number] [address] [place] [phone] Jul, [facility] [address] [facility] [id number] [address] [place] [phone] Jul, [facility] [address] [facility] [id number] [address] [place] [address] Jul, Frequent headaches R51 ; Fib rocystic disease of left breast N60.12 ; Fibrocystic disease of right breast N60.11 and Diabetes E11.9 [facility] [address] [facility] [id number] [address] [place] [phone] Jul, [facility] [address] [facility] [id number] [address] [place] [phone] Jul, [facility] [address] [facility] [id number] [place] [address] Jun, Exudative tonsillitis J03.90 [facility] [address] [facility] [id number] [address] [place] [address] Jun, [place] [address] [place] [id number] [place] [address] 19 Jun, 2017 [facility] [address] [place] [id number] [place] [address] 15 Jun, 2017 Mild persistent asthma witho ut complication J45.30 ; Chronic obstructive pulmonary disease, unspecified COPD type J44.9 and Exudative tonsillitis J03.90 [place] [address] [facility] [id number] [address] [place] [phone] 13 Jun, 2017 Encounter for immunization Z 23 [facility] [address] [facility] [id number] [address] [place] [phone] 12 Jun, 2017 [facility] [address] [facility] [id number] [address] [place] [phone] Jun, [facility] [address] [facility] [id number] [address] [place] [phone] 09 Jun, 2017 [facility] [address] [facility] [id number] [address] [place] [phone] 06 Jun, 2017 Tonsillitis J03.90 [facility] [address] [facility] [id number] [address] [place] [phone] 05 Jun, 2017 [facility] [address] [place] [id number] [place] [address] Jun, Acute non-recurrent maxillar y sinusitis J01.00 [facility] [address] [facility] [id number] [address] [place] [phone] 02 Jun, 2017 [facility] [address] [facility] [id number] [address] [place] [phone] May, [facility] [address] [facility] [id number] [address] [place] [address] May, [facility] [address] [place] [id number] [place] [address] May, GERD (gastroesophageal reflu x disease) K21.9 [facility] [address] [place] [id number] [place] [phone] May, Migraine without aura and wi thout status migrainosus, not intractable G43.009 [place] [address] [place] [id number] [place] [address] May, [facility] [address] [place] [id number] [place] [address] May, [place] [address] [address] May, Panlobular emphysema J43.1 a nd Acute non-recurrent maxillary sinusitis J01.00 [place] [address] [place] [id number] [place] [phone] May, Bipolar 1 disorder, depresse d, moderate F31.32 ; Panic disorder with agoraphobia F40.01 and Akathisia G25.71 [place] [address] [facility] [id number] [address] [place] [address] Apr, [place] [address] [place] [id number] [place] [address] Apr, [facility] [address] [place] [id number] [place] [phone] Apr, Acute non-recurrent maxillar y sinusitis J01.00 [facility] [address] [id number] [address] [place] [phone] 07 Apr, 2017 Panlobular emphysema J43.1 [facility] [address] [id number] [address] [place] [address] 04 Apr, 2017 [facility] [address] [id number] [address] [place] [phone] 04 Apr, 2017 Exudative tonsillitis J03.90 and Sore throat J02.9 [facility] [address] [id number] [address] [place] [address] 17 Mar, 2017 [facility] [address] [id number] [address] [place] [address] 15 Mar, 2017 Acute non-recurrent maxillar y sinusitis J01.00 [facility] [address] [id number] [address] [place] [phone] 13 Mar, 2017 [facility] [address] [id number] [address] [place] [phone] 09 Mar, 2017 Panlobular emphysema J43.1 a nd Diabetes E11.9 [facility] [address] [id number] [address] [place] [phone] 06 Mar, 2017 [facility] [address] [facility] [id number] [address] [place] [phone] 24 Feb, 2017 Wheezing R06.2 and Acute rec urrent pansinusitis J01.41 [facility] [address] [id number] [address] [place] [phone] Feb, [facility] [address] [id number] [address] [place] [phone] Feb, Acute non-recurrent maxillar y sinusitis J01.00 [facility] [address] [id number] [address] [place] [phone] Feb, Chronic obstructive pulmonar y disease, unspecified J44.9 [facility] [address] [id number] [address] [place] [phone] Feb, Hypoxemia R09.02 and Chronic obstructive pulmonary disease, unspecified J44.9 [facility] [address] [facility] [id number] [address] [place] [phone] 28 Jan, 2017 Bipolar 1 disorder, depresse d, moderate F31.32 ; Panic disorder with agoraphobia F40.01 ; Chronic post-traumatic stress disorder (PTSD) F43.12 ; Diabetes E11.9 and Moderate persistent asthma without complication J45.40 [facility] [address] [id number] [address] [place] [phone] Jan, [place] [address] [id number] [address] [place] [phone] 19 Jan, 2017 Acute non-recurrent maxillar y sinusitis J01.00 [place] [address] [facility] [id number] [address] [place] [phone] 18 Jan, 2017 [facility] [address] [id number] [address] [place] [phone] Jan, [facility] [address] [id number] [address] [place] [phone] Jan, Moderate persistent asthma w [facility] complication J45.40 and Hypoxemia R09.02 [place] [id number] [facility] [id number] [address] [place] [phone] Jan, Moderate persistent asthma w [facility] complication J45.40 and Hypoxemia R09.02 [facility] [address] [id number] [address] [place] [address] Jan, [facility] [address] [id number] [address] [place] [phone] Dec, Acute non-recurrent maxillar y sinusitis J01.00 [facility] [address] [id number] [address] [place] [phone] Dec, Chronic obstructive pulmonar y disease, unspecified J44.9 [facility] [address] [id number] [address] [place] [phone] Dec, [facility] [address] [id number] [address] [place] [phone] Dec, Mild persistent asthma witho ut complication J45.30 and Other chronic pain G89.29 [facility] [address] [id number] [address] [place] [phone] Nov, [facility] [address] [id number] [address] [place] [phone] Nov, Acute non-recurrent maxillar y sinusitis J01.00 [facility] [address] [id number] [address] [place] [phone] Nov, [facility] [address] [id number] [address] [place] [phone] Nov, [facility] [address] [facility] [id number] [address] [place] [phone] Oct, [facility] [address] [id number] [address] [place] [phone] Oct, Bipolar 1 disorder, depresse d, partial remission F31.75 ; Panic disorder with agoraphobia F40.01 and Chronic post-traumatic stress disorder (PTSD) F43.12 [facility] [address] [id number] [address] [place] [phone] Oct, Acute non-recurrent maxillar y sinusitis J01.00 [facility] [address] [id number] [address] [place] [phone] Oct, [facility] [address] [id number] [address] [place] [address] Oct, Diabetes E11.9 [facility] [address] [facility] [id number] [address] [place] [address] September, Diabetes E11.9 [facility] [address] [id number] [address] [place] [address] September, Diabetes E11.9 and Sinus tac hycardia R00.0 [facility] [address] [facility] [id number] [address] [place] [address] September, [facility] [address] [facility] [id number] [address] [place] [address] September, [facility] [address] [place] [id number] [address] [place] [address] Aug, Diabetes E11.9 and Lumbago w ith sciatica, right side M54.41 [facility] [address] [facility] [id number] [address] [place] [address] Aug, [facility] [address] [place] [id number] [address] [place] [address] Jul, Bipolar 1 disorder, depresse d, moderate F31.32 ; Panic disorder with agoraphobia F40.01 and Chronic post-traumatic stress disorder (PTSD) F43.12 [place] [address] [place] [id number] [address] [place] [address] Jul, Sore throat J02.9 [facility] [address] [place] [id number] [address] [place] [address] Jul, [facility] [address] [place] [id number] [address] [place] [address] Jul, [facility] [address] [place] [id number] [address] [place] [address] Jul, [facility] [address] [facility] [id number] [address] [place] [address] Jul, [facility] [address] [facility] [id number] [address] [place] [address] Jul, Sore throat J02.9 and Pharyn gitis, unspecified etiology J02.9 [facility] [address] [facility] [id number] [address] [place] [address] Jun, [facility] [address] [place] [id number] [address] [place] [address] Jun, Diabetes E11.9 [facility] [address] [id number] [address] [place] [address] Jun, [facility] [address] [id number] [address] [place] [address] Jun, [facility] [address] [id number] [address] [place] [address] Jun, [facility] [address] [id number] [address] [place] [address] Jun, [facility] [address] [id number] [address] [place] [address] Jun, [facility] [address] [id number] [address] [place] [address] Jun, [facility] [address] [id number] [address] [place] [address] Jun, [facility] [address] [id number] [address] [place] [address] Jun, [facility] [address] [id number] [address] [place] [address] May, Diabetes E11.9 ; Other chron ic pain G89.29 ; Acute recurrent maxillary sinusitis J01.01 ; Bipolar I disorder with depression F31.9 and Anxiety disorder, unspecified F41.9 [facility] [address] [id number] [address] [place] [address] May, [facility] [address] [id number] [address] [place] [address] May, Diabetes E11.9 ; Bipolar I d isorder with depression F31.9 ; Anxiety disorder, unspecified F41.9 ; Other chronic pain G89.29 and Acute recurrent maxillary sinusitis J01.01 [facility] [address] [id number] [address] [place] [address] May, [facility] [address] [id number] [address] [place] [address] May, Attention deficit hyperactiv ity disorder (ADHD), predominantly inattentive type F90.0 [facility] [address] [id number] [address] [place] [address] May, [facility] [address] [id number] [address] [place] [address] Apr, Attention deficit hyperactiv ity disorder (ADHD), predominantly inattentive type F90.0 and Non-seasonal allergic rhinitis due to other allergic trigger J30.89 [place] [address] [id number] [address] [place] [address] Apr, Bipolar 1 disorder, depresse d, moderate F31.32 ; Panic disorder with agoraphobia F40.01 and Chronic post-traumatic stress disorder (PTSD) F43.12 [place] [address] [facility] [id number] [address] [place] [address] Apr, Dental examination Z01.20 [place] [address] [id number] [address] [place] [address] Mar, [place] [address] [facility] [id number] [address] [place] [address] Mar, [place] [address] [facility] [id number] [address] [place] [address] Mar, Bipolar I disorder with depr ession F31.9 and Anxiety disorder, unspecified F41.9 [place] [address] [id number] [address] [place] [phone] 08 Mar, 2016 Panic disorder with agorapho syd F40.01 ; Bipolar 1 disorder, depressed, moderate F31.32 and Chronic post-traumatic stress disorder (PTSD) F43.12 [place] [address] [id number] [address] [place] [address] Mar, [place] [address] [facility] [id number] [address] [place] [address] Mar, Dental caries K02.9 [facility] [address] [facility] [id number] [address] [place] [address] Feb, Lumbago with sciatica, left side M54.42 ; Lumbago with sciatica, right side M54.41 and Other chronic pain G89.29 [place] [address] [place] [id number] [address] [place] [address] 17 Feb, 2016 [place] [address] [place] [id number] [place] [address] 14 Feb, 2016 [place] [address] [address] 13 Feb, 2016 Bipolar I disorder with depr ession F31.9 ; PTSD (post-traumatic stress disorder) F43.10 and Mood disorder F39 [place] [address] [address] Feb, [place] [address] [place] [id number] [place] [address] 11 Feb, 2016 Dental examination Z01.20 [place] [address] [address] 07 Feb, 2016 [facility] [address] [place] [id number] [address] [place] [address] 03 Feb, 2016 Acute bronchitis, unspecifie d organism J20.9 [place] [address] [place] [id number] [address] [place] [address] 26 Jan, 2016 Mood disorder F39 ; Migraine without aura and without status migrainosus, not intractable G43.009 ; Irritable bowel syndrome, unspecified type K58.9 ; Diabetes E11.9 and Encounter for immunization Z23 [place] [address] [place] [id number] [address] [place] [phone] 15 Jan, 2016 [place] [address] [place] [id number] [place] [address] 06 Jan, 2016 [place] [address] [facility] [id number] [address] [place] [phone] Jan, [facility] [address] [facility] [id number] [address] [place] [address] Jan, [facility] [address] [facility] [id number] [address] [place] [address] Jan, [facility] [address] [place] [id number] [address] [place] [address] Dec, Bipolar I disorder with depr ession F31.9 ; PTSD (post-traumatic stress disorder) F43.10 and Panic disorder with agoraphobia F40.01 [facility] [address] [place] [id number] [address] [place] [address] Dec, Chronic obstructive pulmonar y disease, unspecified COPD type J44.9 ; Tremor R25.1 and Anxiety F41.9 [facility] [address] [place] [id number] [address] [place] [address] Dec, [facility] [address] [address] Nov, Tremors of nervous system R2 5.1 and Cramping of feet R25.2 [facility] [address] [place] [id number] [address] [place] [phone] Nov, [facility] [id number] [place] [address] Nov, [facility] [address] [facility] [id number] [address] [place] [address] Oct, Chronic obstructive pulmonar y disease, unspecified J44.9 [facility] [address] [place] [id number] [address] [place] [address] Oct, [facility] [address] [place] [id number] [address] [place] [address] Oct, Tremor R25.1 [facility] [address] [place] [id number] [place] [address] Oct, Bipolar I disorder with depr ession F31.9 ; Diabetes E11.9 ; PTSD (post-traumatic stress disorder) F43.10 and Panic disorder with agoraphobia F40.01 [facility] [address] [facility] [id number] [address] [place] [address] Oct, Mood disorder F39 [place] [address] [facility] [id number] [address] [place] [address] September, [place] [address] [facility] [id number] [address] [place] [address] September, Diabetes E11.9 ; Bipolar I d isorder with depression F31.9 ; PTSD (post-traumatic stress disorder) F43.10 and Panic disorder with agoraphobia F40.01 [place] [address] [place] [id number] [address] [place] [address] September, Mood disorder F39 ; Schizoaf fective disorder, unspecified type F25.9 ; Arthritis M19.90 ; Tremor R25.1 ; Acute non-recurrent frontal sinusitis J01.10 and Blood in stool K92.1 [place] [address] [place] [id number] [address] [place] [phone] September, [place] [address] [place] [id number] [address] [place] [address] September, Chronic obstructive pulmonar y disease, unspecified J44.9 [place] [address] [facility] [id number] [address] [place] [address] September, Diabetes E11.9 [place] [address] [facility] [id number] [address] [place] [phone] Aug, Other bipolar disorder F31.8 9 and Anxiety disorder, unspecified F41.9 [place] [address] [facility] [id number] [address] [place] [phone] Aug, [place] [address] [place] [id number] [address] [place] [address] Aug, Diabetes E11.9 [facility] [address] [id number] [address] [place] [address] Aug, [facility] [address] [id number] [address] [place] [address] 14 Aug, 2015 Diabetes E11.9 ; Fatigue R53 .83 and Dizziness R42 [facility] [address] [id number] [address] [place] [address] Aug, Other bipolar disorder F31.8 9 [facility] [address] [id number] [address] [place] [address] Aug, Generalized anxiety disorder F41.1 [facility] [address] [id number] [address] [place] [address] Aug, Other bipolar disorder F31.8 9 and Anxiety disorder, unspecified F41.9 [facility] [address] [id number] [address] [place] [address] Aug, [facility] [address] [id number] [address] [place] [phone] Jul, [facility] [address] [id number] [address] [place] [address] 24 Jul, 2015 [facility] [address] [id number] [address] [place] [address] Jul, Bronchitis J40 [facility] [address] [id number] [address] [place] [address] Jul, Anxiety disorder F41.9 [facility] [address] [id number] [address] [place] [address] Jul, Other bipolar disorder F31.8 9 and Anxiety disorder, unspecified F41.9 [facility] [address] [id number] [address] [place] [address] 18 Jul, 2015 Other bipolar disorder F31.8 9 and Fibromyalgia M79.7 [facility] [address] [place] [id number] [address] [place] [address] Jul, [facility] [address] [place] [id number] [address] [place] [address] Jul, [facility] [address] [place] [id number] [place] [address] Jul, [facility] [address] [place] [id number] [place] [address] Jul, Other bipolar disorder F31.8 9 and Anxiety disorder, unspecified F41.9 [facility] [address] [id number] Jun, GERD (gastroesophageal reflu x disease) K21.9 [facility] [address] [address] Jun, [facility] [address] [address] May, [facility] [address] [address] May, Diabetes E11.9 ; Back pain M 54.9 ; GERD (gastroesophageal reflux disease) K21.9 ; Hypertension I10 and Peripheral neuropathy G62.9 [facility] [address] [address] Mar, [facility] [address] [address] Mar, [facility] [address] [address] Mar, Acute sinusitis J01.90 and O titis media, left H66.92 [facility] [address] [place] [id number] [address] [place] [address] Feb, [facility] [address] [address] Feb, [facility] [address] [place] [address] Feb, [facility] [address] [facility] [id number] [address] [place] [address] Feb, [facility] [address] [place] [id number] [address] [place] [address] Jan, [facility] [address] [place] [id number] [place] [address] Jan, Diabetes 250.00 and Back higinio n 724.5 [facility] [address] [place] [id number] [place] [address] Jan, [facility] [address] [place] [id number] [place] [address] Dec, Diabetes 250.00 ; Benign ess ential hypertension 401.1 and Allergic rhinitis 477.9 [facility] [address] [address] Dec, [facility] [address] [address] Dec, [facility] [address] [address] Dec, Psychosis 298.9 [facility] [address] [place] [id number] [place] [address] Dec, Medication side effect 995.2 0 and Generalized anxiety disorder 300.02 [facility] [address] [place] [id number] [address] [place] [address] Dec, Acquired cognitive dysfuncti on 294.9 [facility] [address] [place] [id number] [place] [address] Dec, [facility] [address] [place] [id number] [place] [address] Dec, Unspecified myalgia and myos itis 729.1 and Generalized anxiety disorder 300.02 [facility] [address] [place] [id number] [address] [place] [address] Nov, [facility] [address] [id number] [address] [place] [address] Nov, [facility] [address] [facility] [id number] [address] [place] [address] Nov, [facility] [address] [facility] [id number] [address] [place] [address] Nov, Upper respiratory infection 465.9 and Chronic airway obstruction, not elsewhere classified 496 [facility] [address] [id number] [address] [place] [address] Nov, Hyponatremia 276.1 [facility] [address] [id number] [address] [place] [phone] Oct, [facility] [address] [facility] [id number] [address] [place] [address] Oct, [facility] [address] [facility] [id number] [address] [place] [address] Oct, [facility] [address] [facility] [id number] [address] [place] [address] Oct, [facility] [address] [facility] [id number] [address] [place] [address] Oct, Hyponatremia 276.1 [facility] [address] [facility] [id number] [address] [place] [address] Oct, [facility] [address] [facility] [id number] [address] [place] [address] Oct, [facility] [address] [facility] [id number] [address] [place] [address] Oct, Generalized anxiety disorder 300.02 [facility] [address] [facility] [id number] [address] [place] [address] Oct, Generalized anxiety disorder 300.02 and Diabetes 250.00 [facility] [address] [facility] [id number] [address] [place] [address] Aug, [facility] [address] [id number] [address] [place] [address], [place] [address] 13 Aug, 2014 [facility] [address] [id number] [address] [place] [address], [place] [address] Jul, [facility] [address] [id number] [address] [place] [address], [place] [address] Jul, [facility] [address] [id number] [address] [place] [address], [place] [address] Jun, [facility] [address] [id number] [address] [place] [address], [place] [address] Jun, [facility] [address] [id number] [address] [place] [address], [place] [address] Jun, [facility] [address] [id number] [address] [place] [address], [place] [address] Jun, [facility] [address] [id number] [address] [place] [address], [place] [address] Jun, [facility] [address] [id number] [address] [place] [address], [place] [address] May, [facility] [address] [id number] [address] [place] [address], [place] [address] May, [facility] [address] [id number] [address] [place] [address], [place] [address] Apr, [facility] [address] [id number] [address] [place] [address], [place] [address] Apr, [facility] [address] [id number] [address] [place] [address], [place] [address] 18 Apr, 2013 [facility] [address] [id number] [address] [place] [address], [place] [address] 18 Apr, 2013 [facility] [address] [id number] [address] [place] [address], [place] [address] 17 Apr, 2013 [facility] [address] [id number] [address] [place] [address], [place] [address] Apr, [facility] [address] [id number] [address] [place] [address], [place] [address] Apr, [facility] [address] [id number] [address] [place] [address], [place] [address] Apr, [facility] [address] [id number] [address] [place] [address], [place] [address] Feb, [facility] [address] [id number] [address] [place] [address], [place] [address] Feb, [facility] [address] [id number] [address] [place] [address], [place] [address] Jan, [facility] [address] [id number] [address] [place] [address], [place] [address] Jan, [facility] [address] [id number] [address] [place] [address], [place] [address] Dec, [facility] [address] [id number] [address] [place] [address], [place] [address] Dec, [facility] [address] [id number] [address] [place] [address], [place] [address] Dec, [facility] [address] [id number] [address] [place] [address], [place] [address] Nov, [facility] [address] [id number] [address] [place] [address], [place] [address] Nov, [facility] [address] [id number] [address] [place] [address], [place] [address] Nov, [facility] [address] [id number] [address] [place] [address], [place] [address] Oct, [facility] [address] [id number] [address] [place] [address], [place] [address] Oct, [facility] [address] [id number] [address] [place] [address], [place] [address] Oct, [facility] [address] [id number] [address] [place] [address], [place] [address] September, [facility] [address] [id number] [address] [place] [address], [place] [address] September, [facility] [address] [id number] [address] [place] [address], [place] [address] September, [facility] [address] [id number] [address] [place] [address], [place] [address] Aug, [facility] [address] [id number] [address] [place] [address], [place] [address] Aug, [facility] [address] [id number] [address] [place] [address], [place] [address] Aug, [facility] [address] [id number] [address] [place] [address], [place] [address] Aug, [facility] [address] [id number] [address] [place] [address], [place] [address] Jul, [facility] [address] [id number] [address] [place] [address], [place] [address] Jun, [facility] [address] [id number] [address] [place] [address], [place] [address] 14 Jun, [address] [facility] [address] [id number] [address] [place] [address], [place] [address] Jun, [facility] [address] [id number] [address] [place] [address], [place] [address] 07 Jun, 2011 [facility] [address] [id number] [address] [place] [address], [place] [address] 03 Jun, 2011 [facility] [address] [id number] [address] [place] [address], [place] [address] 13 May, 2011 [facility] [address] [id number] [address] [place] [address], [place] [address] 10 May, 2011 [facility] [address] [id number] [address] [place] [address], [place] [address] 09 May, 2011 [facility] [address] [id number] [address] [place] [address], [place] [address] May, [facility] [address] [id number] [address] [place] [address], [place] [address] Apr, [facility] [address] [id number] [address] [place] [address], [place] [address] Apr, [facility] [facility] [address] [id number] [address] [place] [address], [place] [address] Apr, [facility] [address] [id number] [address] [place] [address], [place] [address] Mar, [facility] [address] [id number] [address] [place] [address], [place] [address] Mar, [facility] [address] [id number] [address] [place] [address], [place] [address] Mar, [facility] [address] [id number] [address] [place] [address], [place] [address] Feb, [facility] [address] [id number] [address] [place] [address], [place] [address] Feb, [facility] [address] [id number] [address] [place] [address], [place] [address] Feb, [facility] [address] [id number] [address] [place] [address], [place] [address] Nov, [facility] [address] [id number] [address] [place] [address], [place] [address] September, [facility] [address] [id number] [address] [place] [address], [place] [address] Aug, [facility] [address] [id number] [address] [place] [address], [place] [address] Jul, [facility] [address] [id number] [address] [place] [address], [place] [address] May, [facility] [address] [facility] [id number] [address] [place] [phone] Apr, [facility] [address] [facility] [id number] [address] [place] [id number] Apr, [facility] [address] [facility] [id number] [address] [place] [phone] Apr, [facility] [address] [facility] [id number] [address] [place] [phone] Apr, [facility] [address] [facility] [id number] [address] [place] [phone] Apr, IMMUNIZATIONS No Known Immunizations SOCIAL HISTORY [...]
--- OUTSIDE RECORDS SUMMARY | 2019-07-17 10:52 | XMS REPORT ---
Author Author Sujey GANDHI Organization [facility] Address [address] [place] [address] Care Team Providers Care Union Organizer Name Role Phone WHIT GANDHI Unavailable PROBLEMS Type Condition ICD9-CM Code TGT04-NP Code Onset Dates Condition S tatus SNOMED Code Problem Diabetes E11.9 Active 26186728 Problem GERD (gastroesophageal reflux disease) K21.9 Active 749724212 Problem Anxiety disorder, unspecified F41.9 Active 680631882 Problem Hypertension I10 Active 9598292 3 Problem Other bipolar disorder F31.89 Active 80295209 Problem Fibromyalgia M79.7 Active 7441694 7 Problem Panic disorder with agoraphobia F40.01 Active 12176201 Problem Chronic obstructive pulmonary disease, unspecified J44.9 Active 91096127 Problem Lumbago with sciatica, left side M54.42 Active 711437408 Problem Migraine without aura and without status migrain osus, not intractable G43.009 Active 695351515 Problem Lumbago with sciatica, right side M54.41 Active 650473992 Problem Fibrocystic disease of right breast N60.11 Active 54308471 Problem Other chronic pain G89.29 Active 8 3485784 Problem Fibrocystic disease of left breast N60.12 Active 82090418 Problem Irritable bowel syndrome with constipation K58.1 Active 500619861 Problem Arthritis M19.90 Active 5562199 Problem Abnormal mammogram of right breast R92.8 Active 803910644 Problem Daytime somnolence R40.0 Active 1 04452432207 Problem Bipolar affective disorder, remission status unspecified F31.9 Active 42470655 Problem Chronic post-traumatic stress disorder (PTSD) F43. 12 Active 057341213 Problem Bipolar 1 disorder, depressed, moderate F31.32 Active 70028786 Problem Schizoaffective disorder, bipolar type F25.0 Active 19840683 Problem Irritable bowel syndrome with both constipation and diarrh ea K58.2 Active 91365237 Problem Slow transit constipation K59.01 Acti ve 76868145 Problem Essential tremor G25.0 Active 609 381109 Problem Acute non-recurrent maxillary sinusitis J01.00 Active 40764287 Problem Back pain M54.9 Active 040692435 Problem Bipolar 1 disorder, depressed, partial remission F 31.75 Active 95797854 Problem Attention deficit hyperactiv ity disorder (ADHD), predominantly inattentive type F90.0 Active 79056026 Problem Bipolar I disorder with depression F31.9 Active 15370863 Problem Panlobular emphysema J43.1 Active 9455550 Problem Akathisia G25.71 Active 876993731 Problem Mild persistent asthma without complication J45.30 Active 028465025 Problem Moderate persistent asthma without complication J4 5.40 Active 167264242 ALLERGIES Substance Reaction Event Type Date Status Penicillin V Potassium Unknown Drug Allergy Feb, Activ e Effexor anaphylaxis Drug Allergy Feb, Active Darvocet-N 50 Unknown Drug Allergy Feb, Active Cefdinir Swelling Drug Allergy Feb, Active Benadryl vomiting/swelling Drug Allergy Feb, Active ENCOUNTERS Encounter Location Date Diagnosis [place] [address] [place] [id number] [address] [place] [address] Mar, [place] [address] [place] [id number] [address] [place] [address] Mar, [place] [address] [place] [id number] [address] [place] [address] Feb, Tremors of nervous system R2 5.1 and Acute swimmer''s ear of right side H60.331 [facility] [address] [place] [id number] [address] [place] [address] Feb, Cerebrovascular accident (CV A) due to occlusion of right cerebellar artery I63.[address] [facility] [address] [facility] [id number] [address] [place] [address] Feb, [place] [address] [facility] [id number] [address] [place] [address] Feb, Cerebrovascular accident (CV A) due to occlusion of right cerebellar artery I63.541 [facility] [address] [id number] [id number] 12 Feb, [address] [facility] [address] [address] Feb, [facility] [address] [place] [id number] [address] [place] [phone] 04 Feb, [address] [facility] [address] [place] [id number] [address] [place] [address] Feb, [facility] [address] [address] Jan, [place] [address] [address] Jan, [place] [address] [address] Jan, Chronic obstructive pulmonar y disease, unspecified J44.9 and Anxiety disorder, unspecified F41.9 [facility] [address] [address] Jan, Hypertension I10 ; Fibromyal medhat M79.7 and Lumbago with sciatica, left side M54.42 [place] [address] [place] [id number] [address] [place] [address] Jan, [facility] [address] [address] 20 Jan, 2018 Cerebrovascular accident (CV A) due to occlusion of right cerebellar artery I63.541 [place] [address] [address] 19 Jan, 2018 [place] [address] [place] [id number] [place] [address] 13 Jan, [address] [facility] [address] [address] Jan, [place] [address] [facility] [id number] [address] [place] [address] Jan, Abnormal mammogram of right breast R92.8 [place] [address] [facility] [id number] [address] [place] [address] Dec, Daytime somnolence R40.0 and Right otitis media with effusion H65.91 [place] [address] [facility] [id number] [address] [place] [address] Dec, [place] [address] [facility] [id number] [address] [place] [address] Dec, Cerebrovascular accident (CV A) due to occlusion of right cerebellar artery I63.541 [place] [address] [facility] [id number] [address] [place] [address] Dec, [place] [address] [place] [id number] [address] [place] [address] Dec, [place] [address] [facility] [id number] [address] [place] [address] Nov, Bipolar 1 disorder, depresse d, partial remission F31.75 and Panic disorder with agoraphobia F40.01 [place] [address] [facility] [id number] [address] [place] [address] Nov, Panlobular emphysema J43.1 [place] [address] [facility] [id number] [address] [place] [address] Nov, Cerebrovascular accident (CV A) due to occlusion of right cerebellar artery I63.541 and Acute non-recurrent maxillary sinusitis J01.00 [place] [address] [facility] [id number] [address] [place] [address] Nov, Panlobular emphysema J43.1 [place] [address] [facility] [id number] [address] [place] [address] Nov, [place] [address] [facility] [id number] [address] [place] [address] Nov, [facility] [address] [id number] [address] [place] [address] Nov, [facility] [address] [id number] [address] [place] [address] Nov, [facility] [address] [id number] [address] [place] [address] Nov, [facility] [address] [id number] [address] [place] [address] Nov, [facility] [address] [id number] [address] [place] [phone] Nov, [facility] [address] [facility] [id number] [address] [place] [address] Nov, Mild persistent asthma witho ut complication J45.30 and Irritable bowel syndrome with both constipation and diarrhea K58.2 [facility] [address] [facility] [id number] [address] [place] [address] Nov, [facility] [address] [id number] [address] [place] [address] Oct, [facility] [address] [facility] [id number] [address] [place] [address] Oct, [facility] [address] [facility] [id number] [address] [place] [address] Oct, Type 2 diabetes mellitus wit h diabetic neuropathy, unspecified 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 insulin use E11.40 ; Diabetes E11.9 ; Slow transit constipation K59.01 ; Edema of both legs R60.0 and Dysfunction of right eustachian tube H69.81 [facility] [address] [id number] [address] [place] [address] Oct, Frequent headaches R51 [facility] [address] [id number] [address] [place] [address] Oct, [facility] [address] [facility] [id number] [address] [place] [phone] Oct, [facility] [address] [facility] [id number] [address] [place] [address] Oct, [facility] [address] [id number] [address] [place] [address] Oct, [facility] [address] [facility] [id number] [address] [place] [address] Oct, [facility] [address] [facility] [id number] [address] [place] [phone] Oct, [facility] [address] [facility] [id number] [address] [place] [address] Oct, [facility] [address] [facility] [id number] [address] [place] [address] Oct, [facility] [address] [facility] [id number] [address] [place] [address] September, Frequent headaches R51 [facility] [address] [facility] [id number] [address] [place] [address] September, Bilateral otitis media with effusion H65.93 ; Dizziness R42 and Essential tremor G25.0 [facility] [address] [facility] [id number] [address] [place] [address] September, Chronic obstructive pulmonar y disease, unspecified COPD type J44.9 [facility] [address] [facility] [id number] [address] [place] [address] September, Chronic obstructive pulmonar y disease, unspecified COPD type J44.9 [facility] [address] [facility] [id number] [address] [place] [address] September, Migraine without aura and wi thout status migrainosus, not intractable G43.009 [facility] [address] [facility] [id number] [address] [place] [address] September, [facility] [address] [facility] [id number] [address] [place] [address] September, [facility] [address] [facility] [id number] [address] [place] [address] September, [facility] [address] [facility] [id number] [address] [place] [address] September, Frequent headaches R51 [facility] [address] [facility] [id number] [address] [place] [address] Aug, [facility] [address] [facility] [id number] [address] [place] [address] Aug, Breast mass, right N63.10 [place] [address] [facility] [id number] [address] [place] [address] Aug, Breast lump N63.0 [place] [address] [facility] [id number] [address] [place] [address] Aug, [place] [address] [place] [id number] [address] [place] [address] Aug, Bipolar affective disorder, remission status unspecified F31.9 and Diabetes E11.9 [place] [address] [facility] [id number] [address] [place] [address] Aug, Diabetes E11.9 ; Schizoaffec tive disorder, bipolar type F25.0 ; Pharyngitis due to other organism J02.8 ; Panlobular emphysema J43.1 and Irritable bowel syndrome with both constipation and diarrhea K58.2 [place] [address] [facility] [id number] [address] [place] [address] Aug, Abnormal mammogram R92.8 [place] [address] [facility] [id number] [address] [place] [address] Aug, [place] [address] [place] [id number] [address] [place] [address] Aug, Bipolar 1 disorder, depresse d, moderate F31.32 ; Panic disorder with agoraphobia F40.01 and Chronic post-traumatic stress disorder (PTSD) F43.12 [place] [address] [place] [id number] [place] [address] Aug, [facility] [address] [id number] [address] [place] [phone] Aug, [facility] [address] [facility] [id number] [address] [place] [address] Aug, [facility] [address] [facility] [id number] [address] [place] [address] Jul, [facility] [address] [facility] [id number] [address] [place] [address] Jul, Mild persistent asthma witho ut complication J45.30 [facility] [address] [facility] [id number] [address] [place] [address] Jul, Mild persistent asthma witho ut complication J45.30 [facility] [address] [facility] [id number] [address] [place] [phone] 15 Jul, 2017 Bipolar affective disorder, remission status unspecified F31.9 ; Diabetes E11.9 and Irritable bowel syndrome with constipation K58.1 [facility] [address] [facility] [id number] [address] [place] [address] Jul, [facility] [address] [facility] [id number] [address] [place] [address] Jul, [facility] [address] [facility] [id number] [address] [place] [address] Jul, Frequent headaches R51 [facility] [address] [facility] [id number] [address] [place] [address] Jul, [facility] [address] [id number] [address] [place] [address] Jul, [facility] [address] [facility] [id number] [address] [place] [address] Jul, [facility] [address] [facility] [id number] [address] [place] [address] Jul, Frequent headaches R51 ; Fib rocystic disease of left breast N60.12 ; Fibrocystic disease of right breast N60.[address] [facility] [address] [facility] [id number] [address] [place] [phone] Jul, [facility] [address] [facility] [id number] [address] [place] [address] Jul, [facility] [address] [id number] 21 Jun, [address] [facility] [address] [facility] [id number] [address] [place] [address] 20 Jun, 2017 [place] [address] [id number] 19 Jun, 2017 [facility] [address] [address] 15 Jun, 2017 Mild persistent asthma witho ut complication J45.30 ; Chronic obstructive pulmonary disease, unspecified COPD type J44.9 and Exudative tonsillitis J03.90 [place] [address] [place] [id number] [address] [place] [address] 13 Jun, 2017 Encounter for immunization Z 23 [facility] [address] [facility] [id number] [address] [place] [address] 12 Jun, 2017 [facility] [address] [place] [id number] [address] [place] [address] 12 Jun, 2017 [facility] [address] [facility] [id number] [address] [place] [phone] 09 Jun, 2017 [facility] [address] [facility] [id number] [address] [place] [address] 06 Jun, [address] [facility] [address] [facility] [id number] [address] [place] [address] 05 Jun, 2017 [facility] [address] [place] [id number] [place] [address] 03 Jun, 2017 Acute non-recurrent maxillar y sinusitis J01.00 [facility] [address] [facility] [id number] [address] [place] [address] 02 Jun, 2017 [facility] [address] [facility] [id number] [address] [place] [address] May, [facility] [address] [place] [id number] [place] [address] May, [facility] [address] [place] [id number] [place] [address] May, GERD (gastroesophageal reflu x disease) K21.9 [place] [address] [place] [id number] [place] [address] May, Migraine without aura and wi thout status migrainosus, not intractable G43.009 [place] [address] [address] May, [place] [address] [place] [id number] [place] [address] May, [place] [address] [address] May, Panlobular emphysema J43.1 a nd Acute non-recurrent maxillary sinusitis J01.00 [place] [address] [address] May, Bipolar 1 disorder, depresse d, moderate F31.32 ; Panic disorder with agoraphobia F40.01 and Akathisia G25.71 [place] [address] [address] Apr, [place] [address] [address] Apr, [place] [address] [address] Apr, Acute non-recurrent maxillar y sinusitis J01.00 [facility] [address] [id number] [address] [place] [address] 07 Apr, [address] [facility] [address] [id number] [address] [place] [address] 04 Apr, 2017 [facility] [address] [id number] [address] [place] [address] 04 Apr, 2017 Exudative tonsillitis J03.90 [address] Sore throat [address]02.9 [facility] [address] [id number] [address] [place] [address] 17 Mar, 2017 [facility] [address] [id number] [address] [place] [phone] 15 Mar, 2017 Acute non-recurrent maxillar y sinusitis J01.00 [facility] [address] [facility] [id number] [address] [place] [address] 13 Mar, 2017 [facility] [address] [id number] [address] [place] [address] 09 Mar, 2017 Panlobular emphysema J43.1 a nd Diabetes E11.9 [facility] [address] [facility] [id number] [address] [place] [address] 06 Mar, 2017 [facility] [address] [facility] [id number] [address] [place] [address] 24 Feb, 2017 Wheezing R06.2 and Acute rec urrent pansinusitis J01.41 [facility] [address] [id number] [address] [place] [address] Feb, [facility] [address] [facility] [id number] [address] [place] [address] Feb, Acute non-recurrent maxillar y sinusitis J01.00 [facility] [address] [facility] [id number] [address] [place] [address] Feb, Chronic obstructive pulmonar y disease, unspecified J44.9 [facility] [address] [id number] [address] [place] [address] Feb, Hypoxemia R09.02 and Chronic obstructive pulmonary disease, unspecified J44.9 [facility] [address] [id number] [address] [place] [address] 28 Jan, 2017 Bipolar 1 disorder, depresse d, moderate F31.32 ; Panic disorder with agoraphobia F40.01 ; Chronic post-traumatic stress disorder (PTSD) F43.12 ; Diabetes E11.9 and Moderate persistent asthma without complication J45.40 [facility] [address] [id number] [address] [place] [address] 22 Jan, 2017 [facility] [address] [id number] [address] [place] [phone] 19 Jan, 2017 Acute non-recurrent maxillar y sinusitis J01.00 [place] [id number] [id number] [address] [place] [address] 18 Jan, 2017 [facility] [address] [id number] [address] [place] [address] 18 Jan, 2017 [facility] [address] [id number] [address] [place] [address] Jan, Moderate persistent asthma w [facility] complication J45.40 and Hypoxemia R09.02 [place] [id number] [facility] [id number] [address] [place] [address] 11 Jan, 2017 Moderate persistent asthma w [facility] complication J45.[address] [facility] [address] [id number] [address] [place] [address] Jan, [facility] [address] [id number] [address] [place] [address] Dec, Acute non-recurrent maxillar y sinusitis J01.00 [facility] [address] [facility] [id number] [address] [place] [phone] Dec, Chronic obstructive pulmonar y disease, unspecified J44.9 [facility] [address] [id number] [address] [place] [phone] Dec, [facility] [address] [id number] [address] [place] [phone] Dec, Mild persistent asthma witho ut complication J45.30 and Other chronic pain G89.29 [facility] [address] [id number] [address] [place] [id number] Nov, [facility] [address] [id number] [address] [place] [phone] Nov, Acute non-recurrent maxillar y sinusitis J01.00 [facility] [address] [id number] [address] [place] [phone] Nov, [facility] [address] [id number] [address] [place] [id number] Nov, [facility] [address] [facility] [id number] [address] [place] [phone] Oct, [facility] [address] [id number] [address] [place] [id number] Oct, Bipolar 1 disorder, depresse d, partial remission F31.75 ; Panic disorder with agoraphobia F40.01 and Chronic post-traumatic stress disorder (PTSD) F43.12 [facility] [address] [facility] [id number] [address] [place] [phone] Oct, Acute non-recurrent maxillar y sinusitis J01.00 [facility] [address] [id number] [address] [place] [phone] Oct, [facility] [address] [id number] [address] [place] [phone] Oct, Diabetes E11.9 [facility] [address] [id number] [address] [place] [phone] September, Diabetes E11.9 [facility] [address] [id number] [address] [place] [phone] September, Diabetes E11.9 and Sinus tac hycardia R00.0 [facility] [address] [id number] [address] [place] [phone] September, [facility] [address] [facility] [id number] [address] [place] [phone] September, [facility] [address] [facility] [id number] [address] [place] [address] Aug, Diabetes E11.9 and Lumbago w ith sciatica, right side M54.41 [facility] [address] [id number] [address] [place] [address] Aug, [facility] [address] [facility] [id number] [address] [place] [address] Jul, Bipolar 1 disorder, depresse d, moderate F31.32 ; Panic disorder with agoraphobia F40.01 and Chronic post-traumatic stress disorder (PTSD) F43.12 [facility] [address] [facility] [id number] [address] [place] [address] Jul, Sore throat J02.9 [facility] [address] [facility] [id number] [address] [place] [address] Jul, [facility] [address] [facility] [id number] [address] [place] [address] Jul, [facility] [address] [facility] [id number] [address] [place] [address] Jul, [facility] [address] [facility] [id number] [address] [place] [address] Jul, [facility] [address] [facility] [id number] [address] [place] [address] Jul, Sore throat J02.9 and Pharyn gitis, unspecified etiology J02.9 [facility] [address] [facility] [id number] [address] [place] [address] Jun, [facility] [address] [id number] [address] [place] [address] Jun, Diabetes E11.9 [facility] [address] [id number] [address] [place] [address] Jun, [facility] [address] [id number] [address] [place] [address] Jun, [facility] [address] [id number] [address] [place] [address] Jun, [facility] [address] [id number] [address] [place] [address] Jun, [facility] [address] [id number] [address] [place] [phone] Jun, [facility] [address] [id number] [address] [place] [address] Jun, [facility] [address] [id number] [address] [place] [address] Jun, [facility] [address] [id number] [address] [place] [address] Jun, [facility] [address] [id number] [address] [place] [address] May, Diabetes E11.9 ; Other chron ic pain G89.29 ; Acute recurrent maxillary sinusitis J01.01 ; Bipolar I disorder with depression F31.9 and Anxiety disorder, unspecified F41.9 [facility] [address] [id number] [address] [place] [phone] May, [facility] [address] [id number] [address] [place] [address] May, Diabetes E11.9 ; Bipolar I d isorder with depression F31.9 ; Anxiety disorder, unspecified F41.9 ; Other chronic pain G89.29 and Acute recurrent maxillary sinusitis J01.01 [facility] [address] [id number] [address] [place] [address] May, [facility] [address] [id number] [address] [place] [address] May, Attention deficit hyperactiv ity disorder (ADHD), predominantly inattentive type F90.0 [facility] [address] [id number] [address] [place] [address] May, [place] [address] [id number] [address] [place] [address] Apr, Attention deficit hyperactiv ity disorder (ADHD), predominantly inattentive type F90.0 and Non-seasonal allergic rhinitis due to other allergic trigger J30.89 [facility] [address] [id number] [address] [place] [address] Apr, Bipolar 1 disorder, depresse d, moderate F31.32 ; Panic disorder with agoraphobia F40.01 and Chronic post-traumatic stress disorder (PTSD) F43.12 [facility] [address] [facility] [id number] [address] [place] [address] Apr, Dental examination Z01.20 [facility] [address] [id number] [address] [place] [address] Mar, [facility] [address] [facility] [id number] [address] [place] [address] Mar, [facility] [address] [id number] [address] [place] [address] Mar, Bipolar I disorder with depr ession F31.9 and Anxiety disorder, unspecified F41.9 [facility] [address] [id number] [address] [place] [address] 08 Mar, 2016 Panic disorder with agorapho syd F40.01 ; Bipolar 1 disorder, depressed, moderate F31.32 and Chronic post-traumatic stress disorder (PTSD) F43.12 [facility] [address] [id number] [address] [place] [address] Mar, [facility] [address] [facility] [id number] [address] [place] [address] Mar, Dental caries K02.9 [facility] [address] [facility] [id number] [address] [place] [address] Feb, Lumbago with sciatica, left side M54.42 ; Lumbago with sciatica, right side M54.41 and Other chronic pain G89.29 [facility] [id number] [place] [address] 17 Feb, 2016 [place] [place] [address] [place] [id number] [place] [address] 14 Feb, 2016 [place] [facility] [address] [id number] 13 Feb, 2016 Bipolar I disorder with depr ession F31.9 ; PTSD (post-traumatic stress disorder) F43.10 and Mood disorder F39 [facility] [address] [address] Feb, [facility] [address] [id number] 11 Feb, 2016 Dental examination Z01.20 [place] [address] [address] 07 Feb, 2016 [facility] [address] [place] [id number] [address] [place] [address] 03 Feb, 2016 Acute bronchitis, unspecifie d organism J20.9 [place] [address] [place] [id number] [address] [place] [address] 26 Jan, 2016 Mood disorder F39 ; Migraine without aura and without status migrainosus, not intractable G43.009 ; Irritable bowel syndrome, unspecified type K58.9 ; Diabetes E11.9 and Encounter for immunization Z23 [facility] [place] [address] [place] [id number] [address] [place] [address] 15 Jan, 2016 [place] [address] [address] Jan, [facility] [address] [facility] [id number] [address] [place] [address] Jan, [facility] [address] [facility] [id number] [address] [place] [address] Jan, [facility] [address] [facility] [id number] [address] [place] [address] Jan, [facility] [address] [facility] [id number] [address] [place] [address] Dec, Bipolar I disorder with depr ession F31.9 ; PTSD (post-traumatic stress disorder) F43.10 and Panic disorder with agoraphobia F40.01 [facility] [address] [facility] [id number] [address] [place] [address] Dec, Chronic obstructive pulmonar y disease, unspecified COPD type J44.9 ; Tremor R25.[address] [facility] [address] [facility] [id number] [address] [place] [address] Dec, [facility] [address] [facility] [id number] [address] [place] [phone] Nov, Tremors of nervous system R2 5.1 and Cramping of feet R25.2 [facility] [address] [facility] [id number] [address] [place] [address] Nov, [facility] [address] [place] [id number] [address] [place] [address] Nov, [facility] [address] [facility] [id number] [address] [place] [address] Oct, Chronic obstructive pulmonar y disease, unspecified J44.9 [facility] [address] [facility] [id number] [address] [place] [address] Oct, [facility] [address] [facility] [id number] [address] [place] [address] Oct, Tremor R25.1 [facility] [address] [place] [id number] [address] [place] [phone] Oct, Bipolar I disorder with depr ession F31.9 ; Diabetes E11.9 ; PTSD (post-traumatic stress disorder) F43.10 and Panic disorder with agoraphobia F40.01 [facility] [address] [place] [id number] [address] [place] [address] 16 Oct, 2015 Mood disorder F39 [place] [address] [place] [id number] [place] [phone] September, [place] [address] [place] [id number] [place] [address] September, Diabetes E11.9 ; Bipolar I d isorder with depression F31.9 ; PTSD (post-traumatic stress disorder) F43.10 and Panic disorder with agoraphobia F40.01 [place] [address] [place] [id number] [place] [address] September, Mood disorder F39 ; Schizoaf fective disorder, unspecified type F25.9 ; Arthritis M19.90 ; Tremor R25.1 ; Acute non-recurrent frontal sinusitis J01.10 and Blood in stool K92.1 [place] [address] [place] [id number] [address] [place] [address] September, [place] [address] [place] [id number] [place] [address] September, Chronic obstructive pulmonar y disease, unspecified J44.9 [place] [address] [place] [id number] [address] [place] [address] September, Diabetes E11.9 [place] [address] [place] [id number] [address] [place] [address] Aug, Other bipolar disorder F31.8 9 and Anxiety disorder, unspecified F41.9 [place] [address] [place] [id number] [address] [place] [address] Aug, [place] [address] [place] [id number] [address] [place] [address] Aug, Diabetes E11.9 [facility] [address] [id number] [address] [place] [address] 18 Aug, 2015 [facility] [address] [id number] [address] [place] [address] 14 Aug, 2015 Diabetes E11.9 ; Fatigue R53 .[address] [facility] [address] [id number] [address] [place] [address] 13 Aug, 2015 Other bipolar disorder F31.[address] [facility] [address] [id number] [address] [place] [address] 07 Aug, 2015 Generalized anxiety disorder F41.1 [facility] [address] [id number] [address] [place] [phone] Aug, Other bipolar disorder F31.8 9 and Anxiety disorder, unspecified F41.9 [facility] [address] [id number] [address] [place] [phone] Aug, [facility] [address] [id number] [address] [place] [phone] Jul, [facility] [address] [id number] [address] [place] [address] 24 Jul, 2015 [facility] [address] [id number] [address] [place] [address] Jul, Bronchitis J40 [facility] [address] [id number] [address] [place] [address] Jul, Anxiety disorder F41.9 [facility] [address] [id number] [address] [place] [address] Jul, Other bipolar disorder F31.8 9 and Anxiety disorder, unspecified F41.9 [facility] [address] [id number] [address] [place] [address] 18 Jul, 2015 Other bipolar disorder F31.8 [address] [facility] [address] [id number] [address] [place] [address] Jul, [facility] [address] [facility] [id number] [address] [place] [address] Jul, [facility] [address] [facility] [id number] [address] [place] [address] Jul, [facility] [address] [place] [id number] [place] [address] Jul, Other bipolar disorder F31.8 9 and Anxiety disorder, unspecified F41.9 [facility] [address] [place] [id number] [address] [place] [phone] Jun, GERD (gastroesophageal reflu x disease) K21.9 [facility] [address] [place] [id number] [place] [address] Jun, [facility] [address] [address] May, [facility] [address] [address] May, Diabetes E11.9 ; Back pain M 54.9 ; GERD (gastroesophageal reflux disease) K21.9 ; Hypertension I10 and Peripheral neuropathy G62.9 [facility] [address] [place] [id number] [address] [place] [address] Mar, [facility] [address] [address] Mar, [facility] [address] [address] Mar, Acute sinusitis J01.90 and O titis media, left H66.92 [facility] [address] [place] [id number] [address] [place] [address] Feb, [facility] [address] [place] [id number] [address] [place] [address] Feb, [facility] [address] [place] [address] [address] Feb, 2015 [facility] [address] [place] [id number] [address] [place] [address] Feb, [facility] [address] [place] [id number] [address] [place] [address] Jan, [facility] [address] [place] [id number] [place] [address] Jan, Diabetes 250.00 and Back higinio n 724.5 [facility] [address] [place] [id number] [place] [address] Jan, [facility] [address] [address] Dec, Diabetes 250.00 ; Benign ess ential hypertension 401.1 and Allergic rhinitis 477.9 [facility] [address] [address] Dec, [facility] [address] [place] [id number] [place] [address] Dec, [facility] [address] [address] Dec, Psychosis 298.9 [facility] [address] [address] Dec, Medication side effect 995.2 0 and Generalized anxiety disorder 300.02 [facility] [address] [place] [id number] [address] [place] [address] Dec, Acquired cognitive dysfuncti on 294.9 [facility] [address] [place] [id number] [place] [address] Dec, [facility] [address] [address] Dec, Unspecified myalgia and myos itis 729.1 and Generalized anxiety disorder 300.02 [facility] [address] [place] [id number] [place] [address], [place] [address] 30 [address], 2014 [facility] [address] [id number] [address] [place] [address] Nov, [facility] [address] [facility] [id number] [address] [place] [address] Nov, [facility] [address] [facility] [id number] [address] [place] [address] Nov, Upper respiratory infection 465.9 and Chronic airway obstruction, not elsewhere classified 496 [facility] [address] [id number] [address] [place] [address] Nov, Hyponatremia 276.1 [facility] [address] [facility] [id number] [address] [place] [address] Oct, [facility] [address] [facility] [id number] [address] [place] [address] Oct, [facility] [address] [facility] [id number] [address] [place] [address] Oct, [facility] [address] [facility] [id number] [address] [place] [address] Oct, [facility] [address] [facility] [id number] [address] [place] [phone] 04 Oct, [address] [facility] [address] [facility] [id number] [address] [place] [address] 03 Oct, 2014 [facility] [address] [facility] [id number] [address] [place] [address] [address] Oct, 2014 [facility] [address] [facility] [id number] [address] [place] [address] 02 Oct, 2014 Generalized anxiety disorder 300.02 [facility] [address] [facility] [id number] [address] [place] [address] 01 Oct, 2014 Generalized anxiety disorder 300.[address] [facility] [address] [facility] [id number] [address] [place] [address] 14 Aug, 2014 [facility] [address] [id number] [address] [place] [address], [place] [address] 13 Aug, 2014 [facility] [address] [id number] [address] [place] [address], [place] [address] Jul, [facility] [address] [id number] [address] [place] [address], [place] [address] Jul, [facility] [address] [id number] [address] [place] [address], [place] [address] Jun, [facility] [address] [id number] [address] [place] [address], [place] [address] Jun, [facility] [address] [id number] [address] [place] [address], [place] [address] Jun, [facility] [address] [id number] [address] [place] [address], [place] [address] Jun, [facility] [address] [id number] [address] [place] [address], [place] [address] Jun, [facility] [address] [id number] [address] [place] [address], [place] [address] May, [facility] [address] [id number] [address] [place] [address], [place] [address] May, [facility] [address] [id number] [address] [place] [address], [place] [address] Apr, [facility] [address] [id number] [address] [place] [address], [place] [address] 20 Apr, 2013 [facility] [address] [id number] [address] [place] [address], [place] [address] 18 Apr, 2013 [facility] [address] [id number] [address] [place] [address], [place] [address] 18 Apr, 2013 [facility] [address] [id number] [address] [place] [address], [place] [address] 17 Apr, 2013 [facility] [place] [facility] [address] [id number] [address] [place] [address], [place] [address] Apr, [facility] [address] [id number] [address] [place] [address], [place] [address] Apr, [facility] [address] [id number] [address] [place] [address], [place] [address] Apr, [facility] [address] [id number] [address] [place] [address], [place] [address] Feb, [facility] [address] [id number] [address] [place] [address], [place] [address] Feb, [facility] [address] [id number] [address] [place] [address], [place] [address] Jan, [facility] [address] [id number] [address] [place] [address], [place] [address] Jan, [facility] [address] [id number] [address] [place] [address], [place] [address] Dec, [facility] [address] [id number] [address] [place] [address], [place] [address] Dec, [facility] [address] [id number] [address] [place] [address], [place] [address] Dec, [facility] [address] [id number] [address] [place] [address], [place] [address] Nov, [facility] [address] [id number] [address] [place] [address], [place] [address] Nov, [facility] [address] [id number] [address] [place] [address], [place] [address] Nov, [facility] [address] [id number] [address] [place] [address], [place] [address] Oct, [facility] [address] [id number] [address] [place] [address], [place] [address] Oct, [facility] [address] [id number] [address] [place] [address], [place] [address] Oct, [facility] [address] [id number] [address] [place] [address], [place] [address] September, [facility] [address] [id number] [address] [place] [address], [place] [address] September, [facility] [address] [id number] [address] [place] [address], [place] [address] September, [facility] [address] [id number] [address] [place] [address], [place] [address] Aug, [facility] [address] [id number] [address] [place] [address], [place] [address] Aug, [facility] [address] [id number] [address] [place] [address], [place] [address] Aug, [facility] [address] [id number] [address] [place] [address], [place] [address] Aug, [facility] [address] [id number] [address] [place] [address], [place] [address] Jul, [facility] [address] [id number] [address] [place] [address], [place] [address] Jun, [facility] [address] [id number] [address] [place] [address], [place] [address] 14 Jun, 2011 [facility] [address] [id number] [address] [place] [address], [place] [address] Jun, [facility] [address] [id number] [address] [place] [address], [place] [address] 07 Jun, 2011 [facility] [address] [id number] [address] [place] [address], [place] [address] 03 Jun, 2011 [facility] [address] [id number] [address] [place] [address], [place] [address] 13 May, 2011 [facility] [address] [id number] [address] [place] [address], [place] [address] May, [facility] [address] [id number] [address] [place] [address], [place] [address] 09 May, 2011 [facility] [address] [id number] [address] [place] [address], [place] [address] May, [facility] [address] [id number] [address] [place] [address], [place] [address] Apr, [facility] [address] [id number] [address] [place] [address], [place] [address] Apr, [facility] [address] [id number] [address] [place] [address], [place] [address] Apr, [facility] [address] [id number] [address] [place] [address], [place] [address] Mar, [facility] [address] [id number] [address] [place] [address], [place] [address] Mar, [facility] [address] [id number] [address] [place] [address], [place] [address] Mar, [facility] [address] [id number] [address] [place] [address], [place] [address] Feb, [facility] [address] [id number] [address] [place] [address], [place] [address] Feb, [facility] [address] [id number] [address] [place] [address], [place] [address] Feb, [facility] [address] [id number] [address] [place] [place] [address], [place] [address] Nov, [facility] [address] [id number] [address] [place] [address], [place] [address] September, [facility] [address] [id number] [address] [place] [address], [place] [address] Aug, [facility] [address] [id number] [address] [place] [address], [place] [phone] 14 Jul, 2010 [facility] [address] [id number] [address] [place] [address], [place] [address] May, [facility] [address] [facility] [id number] [address] [place] [id number] Apr, [facility] [address] [facility] [id number] [address] [place] [id number] Apr, [facility] [address] [facility] [id number] [address] [place] [id number] Apr, [facility] [address] [facility] [id number] [address] [place] [id number] Apr, [facility] [address] [facility] [id number] [address] [place] [id number] Apr, IMMUNIZATIONS No Known Immunizations SOCIAL HISTORY Never Assessed REASON FOR VISIT Pain management (chronic), PT reports she started having the shakes again. PT no jocy she was on a previous medication but it interacted with her medication -Josh clark MA PLAN OF CARE VITAL SIGNS Height 66 in 2018-03-03 Weight 106.2 lbs 2018-03-03 Temperature 98.0 degrees Fahrenheit 2018-03-03 Heart Rate 82 bpm 2018-03-03 Respiratory Rate 20 2018-03-03 Oximetry on room air:93 % 2018-03-03 BMI 17.14 kg/m2 2018-03-03 Blood pressure systolic 130 mmHg 2018-03-03 Blood pressure diastolic 68 mmHg 2018-03-03 MEDICATIONS Medication Instructions Dosage Frequency Start Date End Date Duration S tatus Loxapine Succinate 10 mg Orally twice a day for mood 1 capsule Active Metformin HCl 1000 MG Orally Twice a day 1 tablet with meals 12h Aug, 30 day(s) Active Anoro Ellipta 62.5-25 MCG/INH Inhalation Once a day 1 puff 24h 18 2017 Active Glucosamine 1000 MG Orally Once a day 2 capsules 24h Active Gabapentin 800 MG Orally Three times a day 1 tablet 8h Jul, Active Ventolin HFA 108 (90 Base) MCG/ACT Inhalation every 4 hrs 2 puffs a s needed 4h Dec, Active Levocetirizine Dihydrochloride 5 MG Orally Once a day 1 tablet i n the evening 24h Dec, Mar, 30 day(s) Active MiraLax - Orally 3 times a day until you have a BM then Reduce to once daily. 17 grams mixed with 8 oz of fluid 30 days Active Aspir-81 81 MG Orally Once a day 1 tablet 24h Active Adderall XR 30 MG Orally Once a day for depression 1 capsule in the morning Feb, 28 days Active Calcium 600 + D 600-200 MG-UNIT Active Multivitamin Adult - Act minoo Detrol LA 4 MG Orally Once a day 1 capsule 24h Dec, 30 day(s) Active Nebulizer 1 as directed Jul, Act minoo Benztropine Mesylate 0.5 MG Orally 3 times a day-Q AM, 4pm and bedtime for restlessness 1 tablet Mar, Active Lorazepam 1 MG Orally in the AM and noon and 4pm 1 tablet Jul, 28 days Active Lamictal 100 mg Orally 2 times a day for depression 1 tablet September, Active Lisinopril 40 mg Orally Once a day 1 tablet 24h Active Flonase 50 mcg/act 1 spray in each nostril 12h Apr, Active Gaviscon 80-14.2 MG Orally 4 times a day 4 tablet 6h Active Xopenex 1.25 MG/3ML Inhalation 4 times a day prn 3 ml Dec, 30 days Active [place] 7.5-325 MG Orally 3 times a day 1 tablet as needed 8h Feb, Active Propranolol HCl 20 mg Orally Twice a day 1 tablet 12h September, 30 day(s) Active Amlodipine Besylate 5 mg Orally Once a day 1 tablet 24h Active Trazodone HCl 100 mg Orally for sleep 1 tablet at bedtime Jan Active Levemir FlexTouch 100 UNIT/ML Subcutaneous Once a day 7 units 24h September, 30 days Active Metoprolol Tartrate 50 mg Orally Twice a day TAKE ONE TABLE T BY MOUTH TWICE DAILY WITH FOOD 12h Active Singulair 10 mg Orally Once a day 1 tablet in the evening 24h Oct, 30 day(s) Active Clonidine HCl 0.1 MG 1 tablet 8h Ac tive Nexium 40 mg 1 capsule 24h Active [id number]-[id number]-PJ 3.5-02248-5 Otic Three times a day 4 d rops into affected ear 8h Feb, 7 days Active Sudafed 30 MG Orally every 6 hrs 1 tablet as needed 6h September, Active Dicyclomine HCl 20 mg Orally Four times a day 1 tablet 6h 1 Aug, Jul, 30 day(s) Active Pulmicort Flexhaler 90 mcg/act Inhalation Twice a day 1 puff 12h Nov, Active Guaifenesin 400 mg Orally every 4 hrs 1 tablet 4h Active Ondansetron 4 MG Orally every 8 hrs PRN 1 tablet on the t ongue and allow to dissolve Apr, 30 days Active Ibuprofen 600 MG 1 tablet with food or milk as needed 8h Active Baclofen 20 MG Orally Three times a day 1 tablet with food or milk 8h 30 Active Amitiza 8 MCG Orally Twice a day 1 capsule with food 12h 2017Jul, 30 day(s) Active Atorvastatin Calcium 10 mg Orally Once a day 1 tablet 24h Active Levocetirizine Dihydrochloride 5 MG Orally Once a day 1 tablet i n the evening 24h Jan, Feb, 30 day(s) Active Hnjwxmmejw-TYTL-Pjffxsde 50-325-40 MG Orally 3 times a day 1 cap yg as needed 8h Jun, Not-Taking BusPIRone HCl 15 mg Orally 3 times a day for anxiety 1 tablet Jan, Active Topiramate 50 mg Orally Twice a day 1 tablet 12h Nov, 30 day(s) Active Insulin Pen Needle 32G X 6 MM as directed 24h Oct, Active RESULTS No Results PROCEDURES Procedure Date Ordered Result Body Site [facility] VISIT ESTABLISHED PATIENT Mar 03, 2018 INSTRUCTIONS MEDICATIONS ADMINISTERED No Known Medications [...]
--- OUTSIDE RECORDS SUMMARY | 2019-07-17 10:53 | XMS REPORT ---
Author Author Sujey GANDHI Organization [facility] Address [address] [place] [address] Care Team Providers Care Crane Oiler Name Role Phone WHIT GANDHI Unavailable PROBLEMS Type Condition ICD9-CM Code UHL92-RZ Code Onset Dates Condition S tatus SNOMED Code Problem Diabetes E11.9 Active 85453992 Problem GERD (gastroesophageal reflux disease) K21.9 Active 282952671 Problem Anxiety disorder, unspecified F41.9 Active 663182179 Problem Hypertension I10 Active 3794765 3 Problem Other bipolar disorder F31.89 Active 12483188 Problem Fibromyalgia M79.7 Active 2639762 7 Problem Panic disorder with agoraphobia F40.01 Active 65472318 Problem Chronic obstructive pulmonary disease, unspecified J44.9 Active 59189820 Problem Lumbago with sciatica, left side M54.42 Active 009064153 Problem Migraine without aura and without status migrain osus, not intractable G43.009 Active 130085568 Problem Lumbago with sciatica, right side M54.41 Active 891086054 Problem Fibrocystic disease of right breast N60.11 Active 92652252 Problem Other chronic pain G89.29 Active 8 7947334 Problem Fibrocystic disease of left breast N60.12 Active 48024420 Problem Irritable bowel syndrome with constipation K58.1 Active 501313067 Problem Arthritis M19.90 Active 5850213 Problem Abnormal mammogram of right breast R92.8 Active 091920891 Problem Daytime somnolence R40.0 Active 1 18489301786 Problem Bipolar affective disorder, remission status unspecified F31.9 Active 17458793 Problem Chronic post-traumatic stress disorder (PTSD) F43. 12 Active 312290391 Problem Bipolar 1 disorder, depressed, moderate F31.32 Active 32840395 Problem Schizoaffective disorder, bipolar type F25.0 Active 38597331 Problem Irritable bowel syndrome with both constipation and diarrh ea K58.2 Active 53007577 Problem Slow transit constipation K59.01 Acti ve 87372270 Problem Essential tremor G25.0 Active 609 356856 Problem Acute non-recurrent maxillary sinusitis J01.00 Active 80073189 Problem Back pain M54.9 Active 470270084 Problem Bipolar 1 disorder, depressed, partial remission F 31.75 Active 18175588 Problem Attention deficit hyperactiv ity disorder (ADHD), predominantly inattentive type F90.0 Active 93147617 Problem Bipolar I disorder with depression F31.9 Active 20301741 Problem Panlobular emphysema J43.1 Active 5557478 Problem Akathisia G25.71 Active 688543408 Problem Mild persistent asthma without complication J45.30 Active 327241175 Problem Moderate persistent asthma without complication J4 5.40 Active 544876110 ALLERGIES No Information ENCOUNTERS Encounter Location Date Diagnosis [place] [address] [place] [id number] [address] [place] [phone] Mar, [place] [address] [phone] Mar, [place] [address] [address] Feb, Tremors of nervous system R2 5.1 and Acute swimmer''s ear of right side H60.331 [place] [address] [place] [id number] [address] [place] [phone] Feb, Cerebrovascular accident (CV A) due to occlusion of right cerebellar artery I63.541 and Hypertension I10 [place] [address] [place] [id number] [address] [place] [phone] Feb, [place] [address] [place] [id number] [address] [place] [address] Feb, Cerebrovascular accident (CV A) due to occlusion of right cerebellar artery I63.541 [facility] [id number] [place] [id number] Feb, Hyponatremia E87.1 [facility] [address] [place] [id number] [address] [place] [phone] Feb, [place] [address] [facility] [id number] [address] [place] [phone] Feb, Daytime somnolence R40.0 [place] [address] [facility] [id number] [address] [place] [phone] Feb, [place] [address] [facility] [id number] [address] [place] [phone] Jan, [place] [address] [facility] [id number] [address] [place] [phone] Jan, [place] [address] [facility] [id number] [address] [place] [phone] Jan, Chronic obstructive pulmonar y disease, unspecified J44.9 and Anxiety disorder, unspecified F41.9 [place] [address] [place] [id number] [address] [place] [phone] Jan, Hypertension I10 ; Fibromyal medhat M79.7 and Lumbago with sciatica, left side M54.42 [place] [address] [facility] [id number] [address] [place] [phone] 26 Jan, 2018 [place] [address] [facility] [id number] [address] [place] [phone] 20 Jan, 2018 Cerebrovascular accident (CV A) due to occlusion of right cerebellar artery I63.541 [place] [address] [facility] [id number] [address] [place] [phone] 19 Jan, 2018 [place] [address] [facility] [id number] [address] [place] [phone] 13 Jan, 2018 Arthritis M19.90 [place] [address] [facility] [id number] [address] [place] [phone] 07 Jan, 2018 [place] [address] [facility] [id number] [address] [place] [phone] 04 Jan, 2018 Abnormal mammogram of right breast R92.8 [place] [address] [facility] [id number] [address] [place] [phone] Dec, Daytime somnolence R40.0 and Right otitis media with effusion H65.91 [facility] [address] [id number] [address] [place] [phone] Dec, [facility] [address] [id number] [address] [place] [phone] Dec, Cerebrovascular accident (CV A) due to occlusion of right cerebellar artery I63.541 [facility] [address] [id number] [address] [place] [phone] Dec, [facility] [address] [id number] [address] [place] [phone] Dec, [place] [address] [facility] [id number] [address] [place] [phone] Nov, Bipolar 1 disorder, depresse d, partial remission F31.75 and Panic disorder with agoraphobia F40.01 [facility] [address] [facility] [id number] [address] [place] [phone] Nov, Panlobular emphysema J43.1 [facility] [address] [facility] [id number] [address] [place] [address] Nov, Cerebrovascular accident (CV A) due to occlusion of right cerebellar artery I63.541 and Acute non-recurrent maxillary sinusitis J01.00 [place] [address] [facility] [id number] [address] [place] [phone] Nov, Panlobular emphysema J43.1 [facility] [address] [id number] [address] [place] [phone] Nov, [facility] [address] [facility] [id number] [address] [place] [address] Nov, [facility] [address] [facility] [id number] [address] [place] [phone] Nov, [facility] [address] [facility] [id number] [address] [place] [address] Nov, [facility] [address] [id number] [address] [place] [phone] Nov, [facility] [address] [facility] [id number] [address] [place] [phone] Nov, [facility] [address] [facility] [id number] [address] [place] [phone] Nov, [facility] [address] [facility] [id number] [address] [place] [phone] Nov, Mild persistent asthma witho ut complication J45.30 and Irritable bowel syndrome with both constipation and diarrhea K58.2 [facility] [address] [facility] [id number] [address] [place] [phone] Nov, [facility] [address] [facility] [id number] [address] [place] [phone] Oct, [facility] [address] [facility] [id number] [address] [place] [phone] Oct, [facility] [address] [facility] [id number] [address] [place] [phone] Oct, Type 2 diabetes mellitus wit h diabetic neuropathy, unspecified whether terminologist insulin use E11.40 ; Diabetes E11.9 ; Slow transit constipation K59.01 ; Edema of both legs R60.0 and Dysfunction of right eustachian tube H69.81 [facility] [address] [facility] [id number] [address] [place] [phone] Oct, Frequent headaches R51 [facility] [address] [id number] [address] [place] [phone] Oct, [facility] [address] [facility] [id number] [address] [place] [phone] Oct, [facility] [address] [facility] [id number] [address] [place] [phone] Oct, [facility] [address] [facility] [id number] [address] [place] [phone] Oct, [facility] [address] [facility] [id number] [address] [place] [phone] Oct, [facility] [address] [facility] [id number] [address] [place] [phone] Oct, [facility] [address] [facility] [id number] [address] [place] [phone] Oct, [facility] [address] [facility] [id number] [address] [place] [phone] Oct, [facility] [address] [facility] [id number] [address] [place] [phone] September, Frequent headaches R51 [facility] [address] [facility] [id number] [address] [place] [phone] September, Bilateral otitis media with effusion H65.93 ; Dizziness R42 and Essential tremor G25.0 [facility] [address] [facility] [id number] [address] [place] [phone] September, Chronic obstructive pulmonar y disease, unspecified COPD type J44.9 [facility] [address] [facility] [id number] [address] [place] [phone] September, Chronic obstructive pulmonar y disease, unspecified COPD type J44.9 [facility] [address] [facility] [id number] [address] [place] [phone] September, Migraine without aura and wi thout status migrainosus, not intractable G43.009 [facility] [address] [facility] [id number] [address] [place] [phone] September, [facility] [address] [facility] [id number] [address] [place] [phone] September, [facility] [address] [facility] [id number] [address] [place] [phone] September, [facility] [address] [facility] [id number] [address] [place] [phone] September, Frequent headaches R51 [facility] [address] [id number] [address] [place] [phone] Aug, [place] [address] [facility] [id number] [address] [place] [phone] Aug, Breast mass, right N63.10 [place] [address] [facility] [id number] [address] [place] [phone] Aug, Breast lump N63.0 [place] [address] [id number] [address] [place] [phone] Aug, [place] [address] [facility] [id number] [address] [place] [phone] Aug, Bipolar affective disorder, remission status unspecified F31.9 and Diabetes E11.9 [place] [address] [place] [id number] [address] [place] [phone] Aug, Diabetes E11.9 ; Schizoaffec tive disorder, bipolar type F25.0 ; Pharyngitis due to other organism J02.8 ; Panlobular emphysema J43.1 and Irritable bowel syndrome with both constipation and diarrhea K58.2 [place] [address] [facility] [id number] [address] [place] [phone] Aug, Abnormal mammogram R92.8 [place] [address] [facility] [id number] [address] [place] [phone] Aug, [place] [address] [facility] [id number] [address] [place] [phone] Aug, Bipolar 1 disorder, depresse d, moderate F31.32 ; Panic disorder with agoraphobia F40.01 and Chronic post-traumatic stress disorder (PTSD) F43.12 [place] [address] [facility] [id number] [address] [place] [phone] Aug, [place] [address] [facility] [id number] [address] [place] [phone] Aug, [place] [address] [facility] [id number] [address] [place] [phone] 02 Aug, 2017 [facility] [address] [id number] [address] [place] [phone] Jul, [facility] [address] [facility] [id number] [address] [place] [phone] Jul, Mild persistent asthma witho ut complication J45.30 [facility] [address] [facility] [id number] [address] [place] [phone] 19 Jul, 2017 Mild persistent asthma witho ut complication J45.30 [facility] [address] [facility] [id number] [address] [place] [phone] 15 Jul, 2017 Bipolar affective disorder, remission status unspecified F31.9 ; Diabetes E11.9 and Irritable bowel syndrome with constipation K58.1 [facility] [address] [facility] [id number] [address] [place] [phone] Jul, [facility] [address] [facility] [id number] [address] [place] [phone] Jul, [facility] [address] [facility] [id number] [address] [place] [phone] Jul, Frequent headaches R51 [facility] [address] [facility] [id number] [address] [place] [phone] Jul, [facility] [address] [facility] [id number] [address] [place] [address] Jul, [facility] [address] [facility] [id number] [address] [place] [phone] Jul, [facility] [address] [facility] [id number] [address] [place] [address] Jul, Frequent headaches R51 ; Fib rocystic disease of left breast N60.12 ; Fibrocystic disease of right breast N60.11 and Diabetes E11.9 [facility] [address] [facility] [id number] [address] [place] [phone] 02 Jul, 2017 [facility] [address] [facility] [id number] [address] [place] [phone] Jul, [facility] [address] [facility] [id number] [address] [place] [phone] 21 Jun, 2017 Exudative tonsillitis J03.90 [facility] [address] [facility] [id number] [address] [place] [phone] 20 Jun, 2017 [facility] [address] [facility] [id number] [place] [phone] 19 Jun, 2017 [facility] [address] [facility] [id number] [address] [place] [phone] 15 Jun, 2017 Mild persistent asthma witho ut complication J45.30 ; Chronic obstructive pulmonary disease, unspecified COPD type J44.9 and Exudative tonsillitis J03.90 [facility] [address] [place] [id number] [address] [place] [phone] 13 Jun, 2017 Encounter for immunization Z 23 [facility] [address] [facility] [id number] [address] [place] [phone] 12 Jun, 2017 [facility] [address] [facility] [id number] [address] [place] [phone] Jun, [facility] [address] [facility] [id number] [address] [place] [phone] 09 Jun, 2017 [facility] [address] [facility] [id number] [address] [place] [phone] 06 Jun, 2017 Tonsillitis J03.90 [facility] [address] [facility] [id number] [address] [place] [phone] Jun, [facility] [address] [place] [id number] [address] [place] [phone] 03 Jun, 2017 Acute non-recurrent maxillar y sinusitis J01.00 [facility] [address] [place] [id number] [address] [place] [phone] Jun, [facility] [address] [place] [id number] [address] [place] [phone] May, [facility] [address] [facility] [id number] [address] [place] [phone] May, [facility] [address] [facility] [id number] [address] [place] [phone] May, GERD (gastroesophageal reflu x disease) K21.9 [facility] [address] [facility] [id number] [address] [place] [phone] May, Migraine without aura and wi thout status migrainosus, not intractable G43.009 [facility] [address] [facility] [id number] [address] [place] [phone] May, [facility] [address] [facility] [id number] [address] [place] [phone] May, [facility] [address] [phone] May, Panlobular emphysema J43.1 a nd Acute non-recurrent maxillary sinusitis J01.00 [facility] [address] [place] [id number] [address] [place] [phone] 04 May, 2017 Bipolar 1 disorder, depresse d, moderate F31.32 ; Panic disorder with agoraphobia F40.01 and Akathisia G25.71 [place] [address] [place] [id number] [address] [place] [phone] Apr, [facility] [address] [place] [id number] [address] [place] [phone] Apr, [facility] [address] [facility] [id number] [address] [place] [phone] Apr, Acute non-recurrent maxillar y sinusitis J01.00 [facility] [address] [facility] [id number] [address] [place] [phone] 07 Apr, 2017 Panlobular emphysema J43.1 [facility] [address] [place] [id number] [address] [place] [phone] Apr, [facility] [address] [id number] [address] [place] [phone] Apr, Exudative tonsillitis J03.90 and Sore throat J02.9 [facility] [address] [facility] [id number] [address] [place] [phone] 17 Mar, 2017 [facility] [address] [facility] [id number] [address] [place] [phone] Mar, Acute non-recurrent maxillar y sinusitis J01.00 [facility] [address] [facility] [id number] [address] [place] [phone] Mar, [facility] [address] [facility] [id number] [address] [place] [phone] Mar, Panlobular emphysema J43.1 a nd Diabetes E11.9 [facility] [address] [facility] [id number] [address] [place] [phone] 06 Mar, 2017 [facility] [address] [facility] [id number] [address] [place] [phone] 24 Feb, 2017 Wheezing R06.2 and Acute rec urrent pansinusitis J01.41 [facility] [address] [facility] [id number] [address] [place] [phone] Feb, [facility] [address] [facility] [id number] [address] [place] [phone] Feb, Acute non-recurrent maxillar y sinusitis J01.00 [facility] [address] [facility] [id number] [address] [place] [phone] Feb, Chronic obstructive pulmonar y disease, unspecified J44.9 [facility] [address] [facility] [id number] [address] [place] [phone] Feb, Hypoxemia R09.02 and Chronic obstructive pulmonary disease, unspecified J44.9 [facility] [address] [facility] [id number] [address] [place] [phone] Jan, Bipolar 1 disorder, depresse d, moderate F31.32 ; Panic disorder with agoraphobia F40.01 ; Chronic post-traumatic stress disorder (PTSD) F43.12 ; Diabetes E11.9 and Moderate persistent asthma without complication J45.40 [facility] [address] [id number] [address] [place] [phone] 22 Jan, 2017 [facility] [address] [id number] [address] [place] [phone] Jan, Acute non-recurrent maxillar y sinusitis J01.00 [facility] [address] [id number] [address] [place] [phone] 18 Jan, 2017 [facility] [address] [id number] [address] [place] [phone] Jan, [facility] [address] [id number] [address] [place] [phone] Jan, Moderate persistent asthma w ithout complication J45.40 and Hypoxemia R09.02 [facility] [address] [id number] [address] [place] [phone] Jan, Moderate persistent asthma w ithout complication J45.40 and Hypoxemia R09.02 [facility] [address] [id number] [address] [place] [phone] Jan, [facility] [address] [id number] [address] [place] [phone] Dec, Acute non-recurrent maxillar y sinusitis J01.00 [facility] [address] [id number] [address] [place] [phone] Dec, Chronic obstructive pulmonar y disease, unspecified J44.9 [facility] [address] [id number] [address] [place] [phone] Dec, [facility] [address] [address] [id number] [address] [place] [phone] Dec, Mild persistent asthma witho ut complication J45.30 and Other chronic pain G89.29 [facility] [address] [id number] [address] [place] [phone] Nov, [facility] [address] [id number] [address] [place] [phone] Nov, Acute non-recurrent maxillar y sinusitis J01.00 [facility] [address] [id number] [address] [place] [phone] Nov, [facility] [address] [id number] [address] [place] [phone] Nov, [facility] [address] [id number] [address] [place] [phone] Oct, [facility] [address] [id number] [address] [place] [phone] Oct, Bipolar 1 disorder, depresse d, partial remission F31.75 ; Panic disorder with agoraphobia F40.01 and Chronic post-traumatic stress disorder (PTSD) F43.12 [facility] [address] [id number] [address] [place] [phone] Oct, Acute non-recurrent maxillar y sinusitis J01.00 [facility] [address] [id number] [address] [place] [phone] Oct, [facility] [address] [id number] [address] [place] [phone] Oct, Diabetes E11.9 [facility] [address] [id number] [address] [place] [phone] September, Diabetes E11.9 [facility] [address] [id number] [address] [place] [phone] September, Diabetes E11.9 and Sinus tac hycardia R00.0 [facility] [address] [id number] [address] [place] [phone] September, [facility] [address] [id number] [address] [place] [phone] September, [facility] [address] [facility] [id number] [address] [place] [phone] Aug, Diabetes E11.9 and Lumbago w ith sciatica, right side M54.41 [facility] [address] [facility] [id number] [address] [place] [phone] Aug, [facility] [address] [facility] [id number] [address] [place] [phone] Jul, Bipolar 1 disorder, depresse d, moderate F31.32 ; Panic disorder with agoraphobia F40.01 and Chronic post-traumatic stress disorder (PTSD) F43.12 [facility] [address] [facility] [id number] [address] [place] [phone] Jul, Sore throat J02.9 [facility] [address] [facility] [id number] [address] [place] [phone] Jul, [facility] [address] [facility] [id number] [address] [place] [phone] Jul, [facility] [address] [facility] [id number] [address] [place] [phone] Jul, [facility] [address] [facility] [id number] [address] [place] [phone] Jul, [facility] [address] [facility] [id number] [address] [place] [phone] Jul, Sore throat J02.9 and Pharyn gitis, unspecified etiology J02.9 [facility] [address] [facility] [id number] [address] [place] [phone] Jun, [facility] [address] [facility] [id number] [address] [place] [phone] Jun, Diabetes E11.9 [facility] [address] [facility] [id number] [address] [place] [phone] Jun, [facility] [address] [place] [id number] [address] [place] [phone] 16 Jun, 2016 [facility] [address] [id number] [address] [place] [phone] Jun, [facility] [address] [id number] [address] [place] [phone] Jun, [facility] [address] [id number] [address] [place] [phone] Jun, [facility] [address] [id number] [address] [place] [phone] Jun, [facility] [address] [id number] [address] [place] [phone] Jun, [facility] [address] [id number] [address] [place] [phone] Jun, [facility] [address] [facility] [id number] [address] [place] [phone] May, Diabetes E11.9 ; Other chron ic pain G89.29 ; Acute recurrent maxillary sinusitis J01.01 ; Bipolar I disorder with depression F31.9 and Anxiety disorder, unspecified F41.9 [facility] [address] [facility] [id number] [address] [place] [phone] May, [facility] [address] [facility] [id number] [address] [place] [phone] May, Diabetes E11.9 ; Bipolar I d isorder with depression F31.9 ; Anxiety disorder, unspecified F41.9 ; Other chronic pain G89.29 and Acute recurrent maxillary sinusitis J01.01 [facility] [address] [id number] [address] [place] [phone] May, [facility] [address] [facility] [id number] [address] [place] [phone] May, Attention deficit hyperactiv ity disorder (ADHD), predominantly inattentive type F90.0 [facility] [address] [id number] [address] [place] [phone] May, [facility] [address] [id number] [address] [place] [phone] Apr, Attention deficit hyperactiv ity disorder (ADHD), predominantly inattentive type F90.0 and Non-seasonal allergic rhinitis due to other allergic trigger J30.89 [place] [address] [id number] [address] [place] [phone] Apr, Bipolar 1 disorder, depresse d, moderate F31.32 ; Panic disorder with agoraphobia F40.01 and Chronic post-traumatic stress disorder (PTSD) F43.12 [place] [address] [facility] [id number] [address] [place] [phone] Apr, Dental examination Z01.20 [place] [address] [facility] [id number] [address] [place] [phone] Mar, [place] [address] [facility] [id number] [address] [place] [phone] Mar, [place] [address] [facility] [id number] [address] [place] [phone] Mar, Bipolar I disorder with depr ession F31.9 and Anxiety disorder, unspecified F41.9 [place] [address] [facility] [id number] [address] [place] [phone] 08 Mar, 2016 Panic disorder with agorapho syd F40.01 ; Bipolar 1 disorder, depressed, moderate F31.32 and Chronic post-traumatic stress disorder (PTSD) F43.12 [place] [address] [facility] [id number] [address] [place] [phone] Mar, [place] [address] [facility] [id number] [address] [place] [phone] Mar, Dental caries K02.9 [facility] [address] [facility] [id number] [address] [place] [phone] Feb, Lumbago with sciatica, left side M54.42 ; Lumbago with sciatica, right side M54.41 and Other chronic pain G89.29 [facility] [address] [facility] [id number] [address] [place] [phone] 17 Feb, 2016 [facility] [address] [facility] [id number] [address] [place] [phone] 14 Feb, 2016 [facility] [address] [facility] [id number] [address] [place] [phone] 13 Feb, 2016 Bipolar I disorder with depr ession F31.9 ; PTSD (post-traumatic stress disorder) F43.10 and Mood disorder F39 [facility] [address] [facility] [id number] [address] [place] [phone] Feb, [facility] [address] [facility] [id number] [address] [place] [phone] 11 Feb, 2016 Dental examination Z01.20 [facility] [address] [place] [id number] [address] [place] [phone] 07 Feb, 2016 [facility] [address] [facility] [id number] [address] [place] [phone] 03 Feb, 2016 Acute bronchitis, unspecifie d organism J20.9 [facility] [address] [facility] [id number] [address] [place] [phone] 26 Jan, 2016 Mood disorder F39 ; Migraine without aura and without status migrainosus, not intractable G43.009 ; Irritable bowel syndrome, unspecified type K58.9 ; Diabetes E11.9 and Encounter for immunization Z23 [facility] [address] [facility] [id number] [address] [place] [phone] 15 Jan, 2016 [facility] [address] [facility] [id number] [address] [place] [phone] 06 Jan, 2016 [facility] [address] [facility] [id number] [address] [place] [phone] Jan, [facility] [address] [facility] [id number] [address] [place] [phone] Jan, [place] [address] [facility] [id number] [address] [place] [phone] Jan, [facility] [address] [facility] [id number] [address] [place] [phone] Dec, Bipolar I disorder with depr ession F31.9 ; PTSD (post-traumatic stress disorder) F43.10 and Panic disorder with agoraphobia F40.01 [facility] [address] [place] [id number] [address] [place] [phone] Dec, Chronic obstructive pulmonar y disease, unspecified COPD type J44.9 ; Tremor R25.1 and Anxiety F41.9 [facility] [address] [facility] [id number] [address] [place] [phone] Dec, [place] [address] [place] [id number] [place] [phone] Nov, Tremors of nervous system R2 5.1 and Cramping of feet R25.2 [facility] [address] [place] [id number] [address] [place] [phone] Nov, [facility] [address] [place] [id number] [address] [place] [phone] Nov, [facility] [address] [place] [id number] [place] [phone] Oct, Chronic obstructive pulmonar y disease, unspecified J44.9 [facility] [address] [place] [id number] [address] [place] [phone] Oct, [facility] [address] [facility] [id number] [address] [place] [phone] Oct, Tremor R25.1 [facility] [address] [facility] [id number] [address] [place] [phone] Oct, Bipolar I disorder with depr ession F31.9 ; Diabetes E11.9 ; PTSD (post-traumatic stress disorder) F43.10 and Panic disorder with agoraphobia F40.01 [facility] [address] [place] [id number] [address] [place] [phone] Oct, Mood disorder F39 [facility] [address] [id number] [address] [place] [phone] September, [facility] [address] [id number] [address] [place] [phone] September, Diabetes E11.9 ; Bipolar I d isorder with depression F31.9 ; PTSD (post-traumatic stress disorder) F43.10 and Panic disorder with agoraphobia F40.01 [facility] [address] [facility] [id number] [address] [place] [phone] September, Mood disorder F39 ; Schizoaf fective disorder, unspecified type F25.9 ; Arthritis M19.90 ; Tremor R25.1 ; Acute non-recurrent frontal sinusitis J01.10 and Blood in stool K92.1 [facility] [address] [facility] [id number] [address] [place] [phone] September, [facility] [address] [id number] [address] [place] [phone] September, Chronic obstructive pulmonar y disease, unspecified J44.9 [facility] [address] [facility] [id number] [address] [place] [phone] September, Diabetes E11.9 [facility] [address] [id number] [address] [place] [phone] Aug, Other bipolar disorder F31.8 9 and Anxiety disorder, unspecified F41.9 [facility] [address] [id number] [address] [place] [phone] Aug, [facility] [address] [facility] [id number] [address] [place] [phone] Aug, Diabetes E11.9 [facility] [address] [facility] [id number] [address] [place] [phone] Aug, [facility] [address] [facility] [id number] [address] [place] [phone] 14 Aug, 2015 Diabetes E11.9 ; Fatigue R53 .83 and Dizziness R42 [facility] [address] [id number] [address] [place] [phone] 13 Aug, 2015 Other bipolar disorder F31.8 9 [facility] [address] [id number] [address] [place] [phone] 07 Aug, 2015 Generalized anxiety disorder F41.1 [facility] [address] [id number] [address] [place] [phone] 07 Aug, 2015 Other bipolar disorder F31.8 9 and Anxiety disorder, unspecified F41.9 [facility] [address] [id number] [address] [place] [phone] Aug, [facility] [address] [id number] [address] [place] [phone] Jul, [facility] [address] [id number] [address] [place] [phone] 24 Jul, 2015 [facility] [address] [id number] [address] [place] [phone] Jul, Bronchitis J40 [facility] [address] [id number] [address] [place] [phone] Jul, Anxiety disorder F41.9 [facility] [address] [id number] [address] [place] [phone] Jul, Other bipolar disorder F31.8 9 and Anxiety disorder, unspecified F41.9 [facility] [address] [id number] [address] [place] [phone] 18 Jul, 2015 Other bipolar disorder F31.8 9 and Fibromyalgia M79.7 [facility] [address] [id number] [address] [place] [phone] 10 Jul, 2015 [facility] [address] [id number] [address] [place] [phone] Jul, [facility] [address] [id number] [address] [place] [phone] Jul, [facility] [address] [facility] [id number] [address] [place] [phone] Jul, Other bipolar disorder F31.8 9 and Anxiety disorder, unspecified F41.9 [facility] [address] [place] [id number] [address] [place] [phone] Jun, GERD (gastroesophageal reflu x disease) K21.9 [facility] [address] [place] [id number] [address] [place] [phone] Jun, [facility] [address] [place] [id number] [place] [phone] May, [facility] [address] [phone] May, Diabetes E11.9 ; Back pain M 54.9 ; GERD (gastroesophageal reflux disease) K21.9 ; Hypertension I10 and Peripheral neuropathy G62.9 [facility] [address] [facility] [id number] [address] [place] [phone] Mar, [facility] [address] [address] Mar, [facility] [address] [place] [id number] [place] [phone] Mar, Acute sinusitis J01.90 and O titis media, left H66.92 [facility] [address] [place] [id number] [address] [place] [phone] Feb, [facility] [address] [place] [id number] [address] [place] [phone] Feb, [facility] [address] [place] [id number] [address] [place] [phone] 15 Feb, 2015 [facility] [address] [place] [id number] [address] [place] [phone] 13 Feb, 2015 [facility] [address] [place] [address] Jan, [facility] [address] [facility] [id number] [address] [place] [phone] Jan, Diabetes 250.00 and Back higinio n 724.5 [facility] [address] [facility] [id number] [address] [place] [phone] Jan, [facility] [address] [place] [id number] [address] [place] [phone] Dec, Diabetes 250.00 ; Benign ess ential hypertension 401.1 and Allergic rhinitis 477.9 [facility] [address] [facility] [id number] [address] [place] [phone] Dec, [facility] [address] [place] [id number] [address] [place] [phone] Dec, [facility] [address] [phone] Dec, Psychosis 298.9 [facility] [address] [place] [id number] [address] [place] [phone] Dec, Medication side effect 995.2 0 and Generalized anxiety disorder 300.02 [facility] [address] [place] [id number] [address] [place] [phone] Dec, Acquired cognitive dysfuncti on 294.9 [facility] [address] [place] [id number] [address] [place] [phone] Dec, [facility] [address] [place] [id number] [address] [place] [phone] Dec, Unspecified myalgia and myos itis 729.1 and Generalized anxiety disorder 300.02 [facility] [address] [place] [id number] [address] [place] [phone] Nov, [facility] [address] [place] [id number] [address] [place] [phone] Nov, [facility] [address] [place] [id number] [address] [place] [phone] Nov, [facility] [address] [id number] [address] [place] [phone] Nov, Upper respiratory infection 465.9 and Chronic airway obstruction, not elsewhere classified 496 [facility] [address] [id number] [address] [place] [phone] Nov, Hyponatremia 276.1 [facility] [address] [id number] [address] [place] [id number] Oct, [facility] [address] [id number] [address] [place] [phone] Oct, [facility] [address] [id number] [address] [place] [phone] Oct, [facility] [address] [facility] [id number] [address] [place] [phone] Oct, [facility] [address] [id number] [address] [place] [phone] Oct, Hyponatremia 276.1 [facility] [address] [id number] [address] [place] [phone] Oct, [facility] [address] [facility] [id number] [address] [place] [phone] Oct, [facility] [address] [facility] [id number] [address] [place] [id number] Oct, Generalized anxiety disorder 300.02 [facility] [address] [id number] [address] [place] [phone] Oct, Generalized anxiety disorder 300.02 and Diabetes 250.00 [facility] [address] [id number] [address] [place] [phone] Aug, [facility] [address] [facility] [id number] [address] [place] [phone] Aug, [facility] [address] [facility] [id number] [address] [place] [phone] Jul, [facility] [address] [id number] [address] [place] [address], [place] [address] Jul, [facility] [address] [id number] [address] [place] [address], [place] [address] Jun, [facility] [address] [id number] [address] [place] [address], [place] [address] Jun, [facility] [address] [id number] [address] [place] [address], [place] [address] Jun, [facility] [address] [id number] [address] [place] [address], [place] [address] Jun, [facility] [address] [id number] [address] [place] [address], [place] [address] Jun, [facility] [address] [id number] [address] [place] [address], [place] [address] May, [facility] [address] [id number] [address] [place] [address], [place] [address] May, [facility] [address] [id number] [address] [place] [address], [place] [address] Apr, [facility] [address] [id number] [address] [place] [address], [place] [address] Apr, [facility] [address] [id number] [address] [place] [address], [place] [address] Apr, [facility] [address] [id number] [address] [place] [address], [place] [address] 18 Apr, 2013 [facility] [address] [id number] [address] [place] [address], [place] [address] Apr, [facility] [address] [id number] [address] [place] [address], [place] [address] Apr, [facility] [address] [id number] [address] [place] [address], [place] [address] Apr, [facility] [address] [id number] [address] [place] [address], [place] [address] Apr, [facility] [address] [id number] [address] [place] [address], [place] [address] Feb, [facility] [address] [id number] [address] [place] [address], [place] [address] Feb, [facility] [address] [id number] [address] [place] [address], [place] [address] Jan, [facility] [address] [id number] [address] [place] [address], [place] [address] Jan, [facility] [address] [id number] [address] [place] [address], [place] [address] Dec, [facility] [address] [id number] [place] [address], [place] [address] Dec, [facility] [address] [id number] [address] [place] [address], [place] [address] Dec, [facility] [address] [id number] [address] [place] [address], [place] [address] Nov, [facility] [address] [id number] [address] [place] [address], [place] [address] Nov, [facility] [address] [id number] [address] [place] [address], [place] [address] Nov, [facility] [address] [id number] [address] [place] [address], [place] [address] Oct, [facility] [address] [id number] [address] [place] [address], [place] [address] Oct, [facility] [address] [id number] [address] [place] [address], [place] [address] Oct, [facility] [address] [id number] [address] [place] [address], [place] [address] September, [facility] [address] [id number] [address] [place] [address], [place] [address] September, [facility] [address] [id number] [address] [place] [address], [place] [address] September, [facility] [address] [id number] [address] [place] [address], [place] [address] Aug, [facility] [address] [id number] [address] [place] [address], [place] [address] Aug, [facility] [address] [id number] [address] [place] [address], [place] [address] Aug, [facility] [address] [id number] [address] [place] [address], [place] [address] 16 Aug, 2011 [facility] [address] [id number] [address] [place] [address], [place] [address] Jul, [facility] [address] [id number] [address] [place] [address], [place] [address] Jun, [facility] [address] [id number] [address] [place] [address], [place] [address] 14 Jun, 2011 [facility] [address] [id number] [address] [place] [address], [place] [address] 13 Jun, 2011 [facility] [address] [id number] [address] [place] [address], [place] [address] 07 Jun, 2011 [facility] [address] [id number] [address] [place] [address], [place] [address] Jun, [facility] [address] [id number] [address] [place] [address], [place] [address] May, [facility] [address] [id number] [address] [place] [address], [place] [address] May, [facility] [address] [id number] [address] [place] [address], [place] [address] 09 May, 2011 [facility] [address] [id number] [address] [place] [address], [place] [address] 04 May, 2011 [facility] [address] [id number] [address] [place] [address], [place] [address] 20 Apr, 2011 [facility] [address] [id number] [address] [place] [address], [place] [address] 13 Apr, 2011 [facility] [address] [id number] [address] [place] [address], [place] [address] 05 Apr, 2011 [facility] [address] [id number] [address] [place] [address], [place] [address] Mar, [facility] [address] [id number] [address] [place] [address], [place] [address] Mar, [facility] [address] [id number] [address] [place] [address], [place] [address] Mar, [facility] [address] [id number] [address] [place] [address], [place] [address] 13 Feb, 2011 [facility] [address] [id number] [address] [place] [address], [place] [address] 13 Feb, 2011 [facility] [address] [id number] [address] [place] [address], [place] [address] 13 Feb, 2011 [facility] [address] [id number] [address] [place] [address], [place] [address] Nov, [facility] [address] [id number] [address] [place] [address], [place] [address] 16 Sep, 2010 [facility] [address] [id number] [address] [place] [address], [place] [address] 12 Aug, 2010 [facility] [address] [id number] [address] [place] [address], [place] [address] 14 Jul, 2010 [facility] [address] [id number] [address] [place] [address], [place] [address] 11 May, 2010 [facility] [address] [id number] [address] [place] [address], [place] [address] 31 Apr, 2010 [facility] [address] [id number] [address] [place] [address], [place] [address] 30 Apr, 2010 [facility] [address] [facility] [id number] [address] [place] [address] Apr, [facility] [address] [facility] [id number] [address] [place] [address] Apr, [facility] [address] [facility] [id number] [address] [place] [address] Apr, IMMUNIZATIONS No Known Immunizations SOCIAL HISTORY Never Assessed REASON FOR VISIT Controlled Med Refill PLAN OF CARE VITAL SIGNS MEDICATIONS Medication Instructions Dosage Frequency Start Date End Date Duration S samantha Cody 7.5-325 MG Orally 3 times a day 1 tablet as needed 8h Feb, 7 days Active Adderall XR 30 MG Orally Once a day for depression 1 capsule in the morning Feb, 28 days Active RESULTS No Results PROCEDURES [...]
--- OUTSIDE RECORDS SUMMARY | 2019-07-17 10:53 | XMS REPORT ---
Author Author Sujey GANDHI Organization [facility] Address [address] [place] [address] Care Team Providers Care Boiler Washer Name Role Phone WHIT GANDHI Unavailable PROBLEMS Type Condition ICD9-CM Code JMG56-ES Code Onset Dates Condition S tatus SNOMED Code Problem Diabetes E11.9 Active 92088370 Problem GERD (gastroesophageal reflux disease) K21.9 Active 929297702 Problem Anxiety disorder, unspecified F41.9 Active 006925444 Problem Hypertension I10 Active 1192121 3 Problem Other bipolar disorder F31.89 Active 09979450 Problem Fibromyalgia M79.7 Active 5876291 7 Problem Panic disorder with agoraphobia F40.01 Active 88426395 Problem Chronic obstructive pulmonary disease, unspecified J44.9 Active 75775871 Problem Lumbago with sciatica, left side M54.42 Active 330622265 Problem Migraine without aura and without status migrain osus, not intractable G43.009 Active 117432396 Problem Lumbago with sciatica, right side M54.41 Active 176574002 Problem Fibrocystic disease of right breast N60.11 Active 12415246 Problem Other chronic pain G89.29 Active 8 3154862 Problem Fibrocystic disease of left breast N60.12 Active 79689867 Problem Irritable bowel syndrome with constipation K58.1 Active 498675994 Problem Arthritis M19.90 Active 4689162 Problem Abnormal mammogram of right breast R92.8 Active 808890999 Problem Daytime somnolence R40.0 Active 1 34602868584 Problem Bipolar affective disorder, remission status unspecified F31.9 Active 39988602 Problem Chronic post-traumatic stress disorder (PTSD) F43. 12 Active 687716483 Problem Bipolar 1 disorder, depressed, moderate F31.32 Active 07282446 Problem Schizoaffective disorder, bipolar type F25.0 Active 49119520 Problem Irritable bowel syndrome with both constipation and diarrh ea K58.2 Active 14808007 Problem Slow transit constipation K59.01 Acti ve 17167289 Problem Essential tremor G25.0 Active 609 074991 Problem Acute non-recurrent maxillary sinusitis J01.00 Active 70959754 Problem Back pain M54.9 Active 859800033 Problem Bipolar 1 disorder, depressed, partial remission F 31.75 Active 70900298 Problem Attention deficit hyperactiv ity disorder (ADHD), predominantly inattentive type F90.0 Active 05196305 Problem Bipolar I disorder with depression F31.9 Active 60672386 Problem Panlobular emphysema J43.1 Active 6467637 Problem Akathisia G25.71 Active 989458835 Problem Mild persistent asthma without complication J45.30 Active 797766011 Problem Moderate persistent asthma without complication J4 5.40 Active 172375608 ALLERGIES No Information ENCOUNTERS Encounter Location Date Diagnosis [place] [address] [place] [id number] [place] [address] Mar, [place] [address] [address] Mar, [place] [address] [address] Feb, Tremors of nervous system R2 5.1 and Acute swimmer''s ear of right side H60.331 [place] [address] [place] [id number] [address] [place] [phone] Feb, Cerebrovascular accident (CV A) due to occlusion of right cerebellar artery I63.541 and Hypertension I10 [place] [address] [place] [id number] [address] [place] [phone] Feb, [place] [address] [place] [id number] [address] [place] [address] Feb, Cerebrovascular accident (CV A) due to occlusion of right cerebellar artery I63.541 [facility] [id number] [place] [id number] Feb, Hyponatremia E87.1 [facility] [address] [place] [id number] [address] [place] [address] Feb, [place] [address] [facility] [id number] [address] [place] [phone] Feb, Daytime somnolence R40.0 [place] [address] [facility] [id number] [address] [place] [phone] Feb, [place] [address] [facility] [id number] [address] [place] [phone] Jan, [place] [address] [facility] [id number] [address] [place] [phone] Jan, [place] [address] [facility] [id number] [address] [place] [address] Jan, Chronic obstructive pulmonar y disease, unspecified J44.9 and Anxiety disorder, unspecified F41.9 [place] [address] [place] [id number] [address] [place] [phone] Jan, Hypertension I10 ; Fibromyal medhat M79.7 and Lumbago with sciatica, left side M54.42 [place] [address] [facility] [id number] [address] [place] [address] 26 Jan, 2018 [place] [address] [facility] [id number] [address] [place] [phone] 20 Jan, 2018 Cerebrovascular accident (CV A) due to occlusion of right cerebellar artery I63.541 [place] [address] [facility] [id number] [address] [place] [phone] 19 Jan, 2018 [place] [address] [facility] [id number] [address] [place] [address] 13 Jan, 2018 Arthritis M19.90 [place] [address] [facility] [id number] [address] [place] [phone] 07 Jan, 2018 [place] [address] [facility] [id number] [address] [place] [phone] 04 Jan, 2018 Abnormal mammogram of right breast R92.8 [place] [address] [facility] [id number] [address] [place] [phone] Dec, Daytime somnolence R40.0 and Right otitis media with effusion H65.91 [facility] [address] [id number] [address] [place] [phone] Dec, [facility] [address] [id number] [address] [place] [address] Dec, Cerebrovascular accident (CV A) due to occlusion of right cerebellar artery I63.541 [facility] [address] [id number] [address] [place] [phone] Dec, [facility] [address] [id number] [address] [place] [phone] Dec, [place] [address] [facility] [id number] [address] [place] [phone] Nov, Bipolar 1 disorder, depresse d, partial remission F31.75 and Panic disorder with agoraphobia F40.01 [facility] [address] [facility] [id number] [address] [place] [phone] Nov, Panlobular emphysema J43.1 [facility] [address] [facility] [id number] [address] [place] [address] Nov, Cerebrovascular accident (CV A) due to occlusion of right cerebellar artery I63.541 and Acute non-recurrent maxillary sinusitis J01.00 [place] [address] [facility] [id number] [address] [place] [phone] Nov, Panlobular emphysema J43.1 [facility] [address] [id number] [address] [place] [phone] Nov, [facility] [address] [facility] [id number] [address] [place] [phone] Nov, [facility] [address] [facility] [id number] [address] [place] [phone] Nov, [facility] [address] [facility] [id number] [address] [place] [phone] Nov, [facility] [address] [id number] [address] [place] [phone] Nov, [facility] [address] [facility] [id number] [address] [place] [phone] Nov, [facility] [address] [facility] [id number] [address] [place] [phone] Nov, [facility] [address] [facility] [id number] [address] [place] [address] Nov, Mild persistent asthma witho ut complication J45.30 and Irritable bowel syndrome with both constipation and diarrhea K58.2 [facility] [address] [facility] [id number] [address] [place] [phone] Nov, [facility] [address] [facility] [id number] [address] [place] [phone] Oct, [facility] [address] [facility] [id number] [address] [place] [phone] Oct, [facility] [address] [facility] [id number] [address] [place] [phone] Oct, Type 2 diabetes mellitus wit h diabetic neuropathy, unspecified 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 recruiting 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 insulin 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 E11.40 ; Diabetes E11.9 ; Slow transit constipation K59.01 ; Edema of both legs R60.0 and Dysfunction of right eustachian tube H69.81 [facility] [address] [facility] [id number] [address] [place] [phone] Oct, Frequent headaches R51 [facility] [address] [id number] [address] [place] [phone] Oct, [facility] [address] [facility] [id number] [address] [place] [phone] Oct, [facility] [address] [facility] [id number] [address] [place] [phone] Oct, [facility] [address] [facility] [id number] [address] [place] [phone] Oct, [facility] [address] [facility] [id number] [address] [place] [phone] Oct, [facility] [address] [facility] [id number] [address] [place] [phone] Oct, [facility] [address] [facility] [id number] [address] [place] [phone] Oct, [facility] [address] [facility] [id number] [address] [place] [phone] Oct, [facility] [address] [facility] [id number] [address] [place] [phone] September, Frequent headaches R51 [facility] [address] [facility] [id number] [address] [place] [address] September, Bilateral otitis media with effusion H65.93 ; Dizziness R42 and Essential tremor G25.0 [facility] [address] [facility] [id number] [address] [place] [address] September, Chronic obstructive pulmonar y disease, unspecified COPD type J44.9 [facility] [address] [facility] [id number] [address] [place] [address] September, Chronic obstructive pulmonar y disease, unspecified COPD type J44.9 [facility] [address] [facility] [id number] [address] [place] [address] September, Migraine without aura and wi thout status migrainosus, not intractable G43.009 [facility] [address] [facility] [id number] [address] [place] [phone] September, [facility] [address] [facility] [id number] [address] [place] [phone] September, [facility] [address] [facility] [id number] [address] [place] [phone] September, [facility] [address] [facility] [id number] [address] [place] [phone] September, Frequent headaches R51 [facility] [address] [id number] [address] [place] [phone] Aug, [place] [address] [facility] [id number] [address] [place] [address] Aug, Breast mass, right N63.10 [place] [address] [facility] [id number] [address] [place] [address] Aug, Breast lump N63.0 [place] [address] [id number] [address] [place] [phone] Aug, [place] [address] [facility] [id number] [address] [place] [phone] Aug, Bipolar affective disorder, remission status unspecified F31.9 and Diabetes E11.9 [place] [address] [place] [id number] [address] [place] [phone] Aug, Diabetes E11.9 ; Schizoaffec tive disorder, bipolar type F25.0 ; Pharyngitis due to other organism J02.8 ; Panlobular emphysema J43.1 and Irritable bowel syndrome with both constipation and diarrhea K58.2 [place] [address] [facility] [id number] [address] [place] [phone] Aug, Abnormal mammogram R92.8 [place] [address] [facility] [id number] [address] [place] [phone] Aug, [place] [address] [facility] [id number] [address] [place] [address] Aug, Bipolar 1 disorder, depresse d, moderate F31.32 ; Panic disorder with agoraphobia F40.01 and Chronic post-traumatic stress disorder (PTSD) F43.12 [place] [address] [facility] [id number] [address] [place] [address] Aug, [place] [address] [facility] [id number] [address] [place] [phone] Aug, [place] [address] [facility] [id number] [address] [place] [phone] 02 Aug, 2017 [facility] [address] [id number] [address] [place] [phone] Jul, [facility] [address] [facility] [id number] [address] [place] [phone] Jul, Mild persistent asthma witho ut complication J45.30 [facility] [address] [facility] [id number] [address] [place] [phone] 19 Jul, 2017 Mild persistent asthma witho ut complication J45.30 [facility] [address] [facility] [id number] [address] [place] [phone] 15 Jul, 2017 Bipolar affective disorder, remission status unspecified F31.9 ; Diabetes E11.9 and Irritable bowel syndrome with constipation K58.1 [facility] [address] [facility] [id number] [address] [place] [address] Jul, [facility] [address] [facility] [id number] [address] [place] [phone] Jul, [facility] [address] [facility] [id number] [address] [place] [phone] Jul, Frequent headaches R51 [facility] [address] [facility] [id number] [address] [place] [address] Jul, [facility] [address] [facility] [id number] [address] [place] [phone] Jul, [facility] [address] [facility] [id number] [address] [place] [phone] Jul, [facility] [address] [facility] [id number] [address] [place] [phone] Jul, Frequent headaches R51 ; Fib rocystic disease of left breast N60.12 ; Fibrocystic disease of right breast N60.11 and Diabetes E11.9 [facility] [address] [facility] [id number] [address] [place] [address] 02 Jul, 2017 [facility] [address] [facility] [id number] [address] [place] [phone] Jul, [facility] [address] [facility] [id number] [address] [place] [phone] 21 Jun, 2017 Exudative tonsillitis J03.90 [facility] [address] [facility] [id number] [address] [place] [phone] 20 Jun, 2017 [facility] [address] [facility] [id number] [place] [phone] 19 Jun, 2017 [facility] [address] [facility] [id number] [address] [place] [address] 15 Jun, 2017 Mild persistent asthma witho ut complication J45.30 ; Chronic obstructive pulmonary disease, unspecified COPD type J44.9 and Exudative tonsillitis J03.90 [facility] [address] [place] [id number] [address] [place] [phone] 13 Jun, 2017 Encounter for immunization Z 23 [facility] [address] [facility] [id number] [address] [place] [phone] 12 Jun, 2017 [facility] [address] [facility] [id number] [address] [place] [address] Jun, [facility] [address] [facility] [id number] [address] [place] [phone] 09 Jun, 2017 [facility] [address] [facility] [id number] [address] [place] [phone] 06 Jun, 2017 Tonsillitis J03.90 [facility] [address] [facility] [id number] [address] [place] [phone] Jun, [facility] [address] [place] [id number] [address] [place] [address] 03 Jun, 2017 Acute non-recurrent maxillar y sinusitis J01.00 [facility] [address] [place] [id number] [address] [place] [phone] Jun, [facility] [address] [place] [id number] [address] [place] [phone] May, [facility] [address] [facility] [id number] [address] [place] [phone] May, [facility] [address] [facility] [id number] [address] [place] [address] May, GERD (gastroesophageal reflu x disease) K21.9 [facility] [address] [facility] [id number] [address] [place] [phone] May, Migraine without aura and wi thout status migrainosus, not intractable G43.009 [facility] [address] [facility] [id number] [address] [place] [phone] May, [facility] [address] [facility] [id number] [address] [place] [address] May, [facility] [address] [address] May, Panlobular emphysema J43.1 a nd Acute non-recurrent maxillary sinusitis J01.00 [facility] [address] [place] [id number] [address] [place] [phone] 04 May, 2017 Bipolar 1 disorder, depresse d, moderate F31.32 ; Panic disorder with agoraphobia F40.01 and Akathisia G25.71 [place] [address] [place] [id number] [address] [place] [address] Apr, [facility] [address] [place] [id number] [address] [place] [address] Apr, [facility] [address] [facility] [id number] [address] [place] [address] Apr, Acute non-recurrent maxillar y sinusitis J01.00 [facility] [address] [facility] [id number] [address] [place] [address] 07 Apr, 2017 Panlobular emphysema J43.1 [facility] [address] [place] [id number] [address] [place] [phone] Apr, [facility] [address] [id number] [address] [place] [address] Apr, Exudative tonsillitis J03.90 and Sore throat J02.9 [facility] [address] [facility] [id number] [address] [place] [phone] 17 Mar, 2017 [facility] [address] [facility] [id number] [address] [place] [address] Mar, Acute non-recurrent maxillar y sinusitis J01.00 [facility] [address] [facility] [id number] [address] [place] [address] Mar, [facility] [address] [facility] [id number] [address] [place] [address] Mar, Panlobular emphysema J43.1 a nd Diabetes E11.9 [facility] [address] [facility] [id number] [address] [place] [phone] 06 Mar, 2017 [facility] [address] [facility] [id number] [address] [place] [phone] 24 Feb, 2017 Wheezing R06.2 and Acute rec urrent pansinusitis J01.41 [facility] [address] [facility] [id number] [address] [place] [phone] Feb, [facility] [address] [facility] [id number] [address] [place] [address] Feb, Acute non-recurrent maxillar y sinusitis J01.00 [facility] [address] [facility] [id number] [address] [place] [address] Feb, Chronic obstructive pulmonar y disease, unspecified J44.9 [facility] [address] [facility] [id number] [address] [place] [address] Feb, Hypoxemia R09.02 and Chronic obstructive pulmonary disease, unspecified J44.9 [facility] [address] [facility] [id number] [address] [place] [address] Jan, Bipolar 1 disorder, depresse d, moderate F31.32 ; Panic disorder with agoraphobia F40.01 ; Chronic post-traumatic stress disorder (PTSD) F43.12 ; Diabetes E11.9 and Moderate persistent asthma without complication J45.40 [facility] [address] [id number] [address] [place] [phone] 22 Jan, 2017 [facility] [address] [id number] [address] [place] [phone] Jan, Acute non-recurrent maxillar y sinusitis J01.00 [facility] [address] [id number] [address] [place] [phone] 18 Jan, 2017 [facility] [address] [id number] [address] [place] [phone] Jan, [facility] [address] [id number] [address] [place] [phone] Jan, Moderate persistent asthma w ithout complication J45.40 and Hypoxemia R09.02 [facility] [address] [id number] [address] [place] [phone] Jan, Moderate persistent asthma w ithout complication J45.40 and Hypoxemia R09.02 [facility] [address] [id number] [address] [place] [phone] Jan, [facility] [address] [id number] [address] [place] [id number] Dec, Acute non-recurrent maxillar y sinusitis J01.00 [facility] [address] [id number] [address] [place] [phone] Dec, Chronic obstructive pulmonar y disease, unspecified J44.9 [facility] [address] [id number] [address] [place] [phone] Dec, [facility] [address] [id number] [address] [place] [phone] Dec, Mild persistent asthma witho ut complication J45.30 and Other chronic pain G89.29 [facility] [address] [id number] [address] [place] [phone] Nov, [facility] [address] [id number] [address] [place] [phone] Nov, Acute non-recurrent maxillar y sinusitis J01.00 [facility] [address] [id number] [address] [place] [phone] Nov, [facility] [address] [id number] [address] [place] [phone] Nov, [facility] [address] [id number] [address] [place] [id number] Oct, [facility] [address] [id number] [address] [place] [phone] Oct, Bipolar 1 disorder, depresse d, partial remission F31.75 ; Panic disorder with agoraphobia F40.01 and Chronic post-traumatic stress disorder (PTSD) F43.12 [facility] [address] [id number] [address] [place] [place] [phone] Oct, Acute non-recurrent maxillar y sinusitis J01.00 [facility] [address] [id number] [address] [place] [phone] Oct, [facility] [address] [id number] [address] [place] [address] Oct, Diabetes E11.9 [facility] [address] [id number] [address] [place] [phone] September, Diabetes E11.9 [facility] [address] [id number] [address] [place] [address] September, Diabetes E11.9 and Sinus tac hycardia R00.0 [facility] [address] [id number] [address] [place] [address] September, [facility] [address] [id number] [address] [place] [address] September, [facility] [address] [facility] [id number] [address] [place] [phone] Aug, Diabetes E11.9 and Lumbago w ith sciatica, right side M54.41 [facility] [address] [facility] [id number] [address] [place] [phone] Aug, [facility] [address] [facility] [id number] [address] [place] [phone] Jul, Bipolar 1 disorder, depresse d, moderate F31.32 ; Panic disorder with agoraphobia F40.01 and Chronic post-traumatic stress disorder (PTSD) F43.12 [facility] [address] [facility] [id number] [address] [place] [address] Jul, Sore throat J02.9 [facility] [address] [facility] [id number] [address] [place] [phone] Jul, [facility] [address] [facility] [id number] [address] [place] [address] Jul, [facility] [address] [facility] [id number] [address] [place] [phone] Jul, [facility] [address] [facility] [id number] [address] [place] [phone] Jul, [facility] [address] [facility] [id number] [address] [place] [phone] Jul, Sore throat J02.9 and Pharyn gitis, unspecified etiology J02.9 [facility] [address] [facility] [id number] [address] [place] [address] Jun, [facility] [address] [facility] [id number] [address] [place] [address] Jun, Diabetes E11.9 [facility] [address] [facility] [id number] [address] [place] [phone] Jun, [facility] [address] [place] [id number] [address] [place] [phone] 16 Jun, 2016 [facility] [address] [id number] [address] [place] [phone] Jun, [facility] [address] [id number] [address] [place] [phone] Jun, [facility] [address] [id number] [address] [place] [phone] Jun, [facility] [address] [id number] [address] [place] [address] Jun, [facility] [address] [id number] [address] [place] [phone] Jun, [facility] [address] [id number] [address] [place] [address] Jun, [facility] [address] [facility] [id number] [address] [place] [address] May, Diabetes E11.9 ; Other chron ic pain G89.29 ; Acute recurrent maxillary sinusitis J01.01 ; Bipolar I disorder with depression F31.9 and Anxiety disorder, unspecified F41.9 [facility] [address] [facility] [id number] [address] [place] [address] May, [facility] [address] [facility] [id number] [address] [place] [address] May, Diabetes E11.9 ; Bipolar I d isorder with depression F31.9 ; Anxiety disorder, unspecified F41.9 ; Other chronic pain G89.29 and Acute recurrent maxillary sinusitis J01.01 [facility] [address] [id number] [address] [place] [address] May, [facility] [address] [facility] [id number] [address] [place] [address] May, Attention deficit hyperactiv ity disorder (ADHD), predominantly inattentive type F90.0 [facility] [address] [id number] [address] [place] [address] May, [facility] [address] [id number] [address] [place] [address] Apr, Attention deficit hyperactiv ity disorder (ADHD), predominantly inattentive type F90.0 and Non-seasonal allergic rhinitis due to other allergic trigger J30.89 [place] [address] [id number] [address] [place] [address] Apr, Bipolar 1 disorder, depresse d, moderate F31.32 ; Panic disorder with agoraphobia F40.01 and Chronic post-traumatic stress disorder (PTSD) F43.12 [place] [address] [facility] [id number] [address] [place] [address] Apr, Dental examination Z01.20 [place] [address] [facility] [id number] [address] [place] [address] Mar, [place] [address] [facility] [id number] [address] [place] [address] Mar, [place] [address] [facility] [id number] [address] [place] [address] Mar, Bipolar I disorder with depr ession F31.9 and Anxiety disorder, unspecified F41.9 [place] [address] [facility] [id number] [address] [place] [phone] 08 Mar, 2016 Panic disorder with agorapho syd F40.01 ; Bipolar 1 disorder, depressed, moderate F31.32 and Chronic post-traumatic stress disorder (PTSD) F43.12 [place] [address] [facility] [id number] [address] [place] [address] Mar, [place] [address] [facility] [id number] [address] [place] [address] Mar, Dental caries K02.9 [facility] [address] [facility] [id number] [address] [place] [phone] Feb, Lumbago with sciatica, left side M54.42 ; Lumbago with sciatica, right side M54.41 and Other chronic pain G89.29 [facility] [address] [facility] [id number] [address] [place] [address] 17 Feb, 2016 [facility] [address] [facility] [id number] [address] [place] [id number] 14 Feb, 2016 [facility] [address] [facility] [id number] [address] [place] [phone] 13 Feb, 2016 Bipolar I disorder with depr ession F31.9 ; PTSD (post-traumatic stress disorder) F43.10 and Mood disorder F39 [facility] [address] [facility] [id number] [address] [place] [address] Feb, [facility] [address] [facility] [id number] [address] [place] [phone] 11 Feb, 2016 Dental examination Z01.20 [facility] [address] [place] [id number] [address] [place] [phone] 07 Feb, 2016 [facility] [address] [facility] [id number] [address] [place] [phone] 03 Feb, 2016 Acute bronchitis, unspecifie d organism J20.9 [facility] [address] [facility] [id number] [address] [place] [phone] 26 Jan, 2016 Mood disorder F39 ; Migraine without aura and without status migrainosus, not intractable G43.009 ; Irritable bowel syndrome, unspecified type K58.9 ; Diabetes E11.9 and Encounter for immunization Z23 [facility] [address] [facility] [id number] [address] [place] [phone] 15 Jan, 2016 [facility] [address] [facility] [id number] [address] [place] [phone] 06 Jan, 2016 [facility] [address] [facility] [id number] [address] [place] [address] Jan, [facility] [address] [facility] [id number] [address] [place] [phone] Jan, [place] [address] [facility] [id number] [address] [place] [phone] Jan, [facility] [address] [facility] [id number] [address] [place] [address] Dec, Bipolar I disorder with depr ession F31.9 ; PTSD (post-traumatic stress disorder) F43.10 and Panic disorder with agoraphobia F40.01 [facility] [address] [place] [id number] [address] [place] [phone] Dec, Chronic obstructive pulmonar y disease, unspecified COPD type J44.9 ; Tremor R25.1 and Anxiety F41.9 [facility] [address] [facility] [id number] [address] [place] [address] Dec, [place] [address] [place] [id number] [place] [address] Nov, Tremors of nervous system R2 5.1 and Cramping of feet R25.2 [facility] [address] [place] [id number] [address] [place] [phone] Nov, [facility] [address] [place] [id number] [address] [place] [address] Nov, [facility] [address] [place] [id number] [place] [address] Oct, Chronic obstructive pulmonar y disease, unspecified J44.9 [facility] [address] [place] [id number] [address] [place] [address] Oct, [facility] [address] [facility] [id number] [address] [place] [phone] Oct, Tremor R25.1 [facility] [address] [facility] [id number] [address] [place] [phone] Oct, Bipolar I disorder with depr ession F31.9 ; Diabetes E11.9 ; PTSD (post-traumatic stress disorder) F43.10 and Panic disorder with agoraphobia F40.01 [facility] [address] [place] [id number] [address] [place] [phone] Oct, Mood disorder F39 [facility] [address] [id number] [address] [place] [address] September, [facility] [address] [id number] [address] [place] [address] September, Diabetes E11.9 ; Bipolar I d isorder with depression F31.9 ; PTSD (post-traumatic stress disorder) F43.10 and Panic disorder with agoraphobia F40.01 [facility] [address] [facility] [id number] [address] [place] [address] September, Mood disorder F39 ; Schizoaf fective disorder, unspecified type F25.9 ; Arthritis M19.90 ; Tremor R25.1 ; Acute non-recurrent frontal sinusitis J01.10 and Blood in stool K92.1 [facility] [address] [facility] [id number] [address] [place] [address] September, [facility] [address] [id number] [address] [place] [id number] September, Chronic obstructive pulmonar y disease, unspecified J44.9 [facility] [address] [facility] [id number] [address] [place] [phone] September, Diabetes E11.9 [facility] [address] [id number] [address] [place] [address] Aug, Other bipolar disorder F31.8 9 and Anxiety disorder, unspecified F41.9 [facility] [address] [id number] [address] [place] [address] Aug, [facility] [address] [facility] [id number] [address] [place] [address] Aug, Diabetes E11.9 [facility] [address] [facility] [id number] [address] [place] [address] Aug, [facility] [address] [facility] [id number] [address] [place] [phone] 14 Aug, 2015 Diabetes E11.9 ; Fatigue R53 .83 and Dizziness R42 [facility] [address] [id number] [address] [place] [phone] 13 Aug, 2015 Other bipolar disorder F31.8 9 [facility] [address] [id number] [address] [place] [phone] 07 Aug, 2015 Generalized anxiety disorder F41.1 [facility] [address] [id number] [address] [place] [phone] 07 Aug, 2015 Other bipolar disorder F31.8 9 and Anxiety disorder, unspecified F41.9 [facility] [address] [id number] [address] [place] [phone] Aug, [facility] [address] [id number] [address] [place] [address] Jul, [facility] [address] [id number] [address] [place] [phone] 24 Jul, 2015 [facility] [address] [id number] [address] [place] [address] Jul, Bronchitis J40 [facility] [address] [id number] [address] [place] [address] Jul, Anxiety disorder F41.9 [facility] [address] [id number] [address] [place] [address] Jul, Other bipolar disorder F31.8 9 and Anxiety disorder, unspecified F41.9 [facility] [address] [id number] [address] [place] [phone] 18 Jul, 2015 Other bipolar disorder F31.8 9 and Fibromyalgia M79.7 [facility] [address] [id number] [address] [place] [phone] 10 Jul, 2015 [facility] [address] [id number] [address] [place] [address] Jul, [facility] [address] [id number] [address] [place] [id number] Jul, [facility] [address] [facility] [id number] [address] [place] [address] Jul, Other bipolar disorder F31.8 9 and Anxiety disorder, unspecified F41.9 [facility] [address] [place] [id number] [address] [place] [address] Jun, GERD (gastroesophageal reflu x disease) K21.9 [facility] [address] [place] [id number] [address] [place] [phone] Jun, [facility] [address] [place] [id number] [place] [address] May, [facility] [address] [address] May, Diabetes E11.9 ; Back pain M 54.9 ; GERD (gastroesophageal reflux disease) K21.9 ; Hypertension I10 and Peripheral neuropathy G62.9 [facility] [address] [facility] [id number] [address] [place] [phone] Mar, [facility] [address] [address] Mar, [facility] [address] [place] [id number] [place] [address] Mar, Acute sinusitis J01.90 and O titis media, left H66.92 [facility] [address] [place] [id number] [address] [place] [address] Feb, [facility] [address] [place] [id number] [address] [place] [phone] Feb, [facility] [address] [place] [id number] [address] [place] [phone] 15 Feb, 2015 [facility] [address] [place] [id number] [address] [place] [address] 13 Feb, 2015 [facility] [address] [place] [address] Jan, [facility] [address] [facility] [id number] [address] [place] [address] Jan, Diabetes 250.00 and Back higinio n 724.5 [facility] [address] [facility] [id number] [address] [place] [address] Jan, [facility] [address] [place] [id number] [address] [place] [address] Dec, Diabetes 250.00 ; Benign ess ential hypertension 401.1 and Allergic rhinitis 477.9 [facility] [address] [facility] [id number] [address] [place] [address] Dec, [facility] [address] [place] [id number] [address] [place] [phone] Dec, [facility] [address] [address] Dec, Psychosis 298.9 [facility] [address] [place] [id number] [address] [place] [address] Dec, Medication side effect 995.2 0 and Generalized anxiety disorder 300.02 [facility] [address] [place] [id number] [address] [place] [address] Dec, Acquired cognitive dysfuncti on 294.9 [facility] [address] [place] [id number] [address] [place] [address] Dec, [facility] [address] [place] [id number] [address] [place] [address] Dec, Unspecified myalgia and myos itis 729.1 and Generalized anxiety disorder 300.02 [facility] [address] [place] [id number] [address] [place] [address] Nov, [facility] [address] [place] [id number] [address] [place] [phone] Nov, [facility] [address] [place] [id number] [address] [place] [address] Nov, [facility] [address] [id number] [address] [place] [address] Nov, Upper respiratory infection 465.9 and Chronic airway obstruction, not elsewhere classified 496 [facility] [address] [id number] [address] [place] [phone] Nov, Hyponatremia 276.1 [facility] [address] [id number] [address] [place] [phone] Oct, [facility] [address] [id number] [address] [place] [address] Oct, [facility] [address] [id number] [address] [place] [phone] Oct, [facility] [address] [facility] [id number] [address] [place] [address] Oct, [facility] [address] [id number] [address] [place] [address] Oct, Hyponatremia 276.1 [facility] [address] [id number] [address] [place] [address] Oct, [facility] [address] [facility] [id number] [address] [place] [address] Oct, [facility] [address] [facility] [id number] [address] [place] [address] Oct, Generalized anxiety disorder 300.02 [facility] [address] [id number] [address] [place] [address] Oct, Generalized anxiety disorder 300.02 and Diabetes 250.00 [facility] [address] [id number] [address] [place] [phone] Aug, [facility] [address] [facility] [id number] [address] [place] [phone] Aug, [facility] [address] [facility] [id number] [address] [place] [phone] Jul, [facility] [address] [id number] [address] [place] [address], [place] [address] Jul, [facility] [address] [id number] [address] [place] [address], [place] [address] Jun, [facility] [address] [id number] [address] [place] [address], [place] [address] Jun, [facility] [address] [id number] [address] [place] [address], [place] [address] Jun, [facility] [address] [id number] [address] [place] [address], [place] [address] Jun, [facility] [address] [id number] [address] [place] [address], [place] [address] Jun, [facility] [address] [id number] [address] [place] [address], [place] [address] May, [facility] [address] [id number] [address] [place] [address], [place] [address] May, [facility] [address] [id number] [address] [place] [address], [place] [address] Apr, [facility] [address] [id number] [address] [place] [address], [place] [address] Apr, [facility] [address] [id number] [address] [place] [address], [place] [address] Apr, [facility] [address] [id number] [address] [place] [address], [place] [address] 18 Apr, 2013 [facility] [address] [id number] [address] [place] [address], [place] [address] Apr, [facility] [address] [id number] [address] [place] [address], [place] [address] Apr, [facility] [address] [id number] [address] [place] [address], [place] [address] Apr, [facility] [address] [id number] [address] [place] [address], [place] [address] Apr, [facility] [address] [id number] [address] [place] [address], [place] [address] Feb, [facility] [address] [id number] [address] [place] [address], [place] [address] Feb, [facility] [address] [id number] [address] [place] [address], [place] [address] Jan, [facility] [address] [id number] [address] [place] [address], [place] [address] Jan, [facility] [address] [id number] [address] [place] [address], [place] [address] Dec, [facility] [address] [id number] [address] [place] [address], [place] [address] Dec, [facility] [address] [id number] [address] [place] [address], [place] [address] Dec, [facility] [address] [id number] [address] [place] [address], [place] [address] Nov, [facility] [address] [id number] [address] [place] [address], [place] [address] Nov, [facility] [address] [id number] [address] [place] [address], [place] [address] Nov, [facility] [address] [id number] [address] [place] [address], [place] [address] Oct, [facility] [address] [id number] [address] [place] [address], [place] [address] Oct, [facility] [address] [id number] [address] [place] [address], [place] [address] Oct, [facility] [address] [id number] [address] [place] [address], [place] [address] September, [facility] [address] [id number] [address] [place] [address], [place] [address] September, [facility] [address] [id number] [address] [place] [address], [place] [address] September, [facility] [address] [id number] [address] [place] [address], [place] [address] Aug, [facility] [address] [id number] [address] [place] [address], [place] [address] Aug, [facility] [address] [id number] [address] [place] [address], [place] [address] Aug, [facility] [address] [id number] [address] [place] [address], [place] [address] 16 Aug, 2011 [facility] [address] [id number] [address] [place] [address], [place] [address] Jul, [facility] [address] [id number] [address] [place] [address], [place] [address] Jun, [facility] [address] [id number] [address] [place] [address], [place] [address] 14 Jun, 2011 [facility] [facility] [address] [id number] [address] [place] [address], [place] [address] 13 Jun, 2011 [facility] [address] [id number] [address] [place] [address], [place] [address] 07 Jun, 2011 [facility] [address] [id number] [address] [place] [address], [place] [address] Jun, [facility] [address] [id number] [address] [place] [address], [place] [address] May, [facility] [address] [id number] [address] [place] [address], [place] [address] May, [facility] [address] [id number] [address] [place] [address], [place] [address] 09 May, 2011 [facility] [address] [id number] [address] [place] [address], [place] [address] 04 May, 2011 [facility] [address] [id number] [address] [place] [address], [place] [address] 20 Apr, 2011 [facility] [address] [id number] [address] [place] [address], [place] [address] 13 Apr, 2011 [facility] [address] [id number] [address] [place] [address], [place] [address] 05 Apr, 2011 [facility] [address] [id number] [address] [place] [address], [place] [address] Mar, [facility] [address] [id number] [address] [place] [address], [place] [address] Mar, [facility] [address] [id number] [address] [place] [address], [place] [address] Mar, [facility] [address] [id number] [address] [place] [address], [place] [address] 13 Feb, 2011 [facility] [address] [id number] [address] [place] [address], [place] [address] 13 Feb, 2011 [facility] [address] [id number] [address] [place] [address], [place] [address] 13 Feb, 2011 [facility] [address] [id number] [address] [place] [address], [place] [address] Nov, [facility] [address] [id number] [address] [place] [address], [place] [address] 16 Sep, 2010 [facility] [address] [id number] [address] [place] [address], [place] [address] 12 Aug, 2010 [facility] [address] [id number] [address] [place] [address], [place] [address] 14 Jul, 2010 [facility] [address] [id number] [address] [place] [address], [place] [address] 11 May, 2010 [facility] [address] [id number] [address] [place] [address], [place] [address] 31 Apr, 2010 [facility] [address] [id number] [address] [place] [address], [place] [address] 30 Apr, 2010 [facility] [address] [facility] [id number] [address] [place] [id number] Apr, [facility] [address] [facility] [id number] [address] [place] [id number] Apr, [facility] [address] [facility] [id number] [address] [place] [id number] Apr, IMMUNIZATIONS No Known Immunizations SOCIAL HISTORY Never Assessed REASON FOR VISIT CCM note PLAN OF CARE VITAL SIGNS MEDICATIONS Unknown [...]
--- OUTSIDE RECORDS SUMMARY | 2019-07-17 10:54 | XMS REPORT ---
Author Author Sujey GANDHI Organization [facility] Address [address] [place] [address] Care Team Providers Care Swine Genetics Researcher Name Role Phone WHIT GANDHI Unavailable PROBLEMS Type Condition ICD9-CM Code YUJ32-PR Code Onset Dates Condition S tatus SNOMED Code Problem Diabetes E11.9 Active 62234973 Problem GERD (gastroesophageal reflux disease) K21.9 Active 757483065 Problem Anxiety disorder, unspecified F41.9 Active 252306472 Problem Hypertension I10 Active 3714561 3 Problem Other bipolar disorder F31.89 Active 23329220 Problem Fibromyalgia M79.7 Active 6960585 7 Problem Panic disorder with agoraphobia F40.01 Active 31905760 Problem Chronic obstructive pulmonary disease, unspecified J44.9 Active 47841487 Problem Lumbago with sciatica, left side M54.42 Active 833305287 Problem Migraine without aura and without status migrain osus, not intractable G43.009 Active 903773474 Problem Lumbago with sciatica, right side M54.41 Active 605752118 Problem Fibrocystic disease of right breast N60.11 Active 72208569 Problem Other chronic pain G89.29 Active 8 7027604 Problem Fibrocystic disease of left breast N60.12 Active 95073352 Problem Irritable bowel syndrome with constipation K58.1 Active 444598836 Problem Arthritis M19.90 Active 3273487 Problem Abnormal mammogram of right breast R92.8 Active 251419921 Problem Daytime somnolence R40.0 Active 1 [id number] Problem Bipolar affective disorder, remission status unspecified F31.9 Active 77624802 Problem Chronic post-traumatic stress disorder (PTSD) F43. 12 Active 095824433 Problem Bipolar 1 disorder, depressed, moderate F31.32 Active 52126152 Problem Schizoaffective disorder, bipolar type F25.0 Active 80095453 Problem Irritable bowel syndrome with both constipation and diarrh ea K58.2 Active 14522800 Problem Slow transit constipation K59.01 Acti ve 61329017 Problem Essential tremor G25.0 Active 609 257691 Problem Acute non-recurrent maxillary sinusitis J01.00 Active 68564489 Problem Back pain M54.9 Active 263516662 Problem Bipolar 1 disorder, depressed, partial remission F 31.75 Active 44045918 Problem Attention deficit hyperactiv ity disorder (ADHD), predominantly inattentive type F90.0 Active 29367374 Problem Bipolar I disorder with depression F31.9 Active 21796007 Problem Panlobular emphysema J43.1 Active 1389051 Problem Akathisia G25.71 Active 632057036 Problem Mild persistent asthma without complication J45.30 Active 817269608 Problem Moderate persistent asthma without complication J4 5.40 Active 344739037 ALLERGIES No Information ENCOUNTERS Encounter Location Date Diagnosis [facility] [address] [facility] [id number] [address] [place] [address] Mar, [facility] [address] [place] [id number] [address] [place] [phone] Feb, [facility] [address] [place] [id number] [address] [place] [phone] Feb, [facility] [address] [place] [id number] [place] [phone] Feb, Daytime somnolence R40.0 [facility] [address] [facility] [id number] [address] [place] [address] Feb, [facility] [address] [place] [id number] [address] [place] [address] Jan, [facility] [address] [facility] [id number] [address] [place] [address] Jan, [facility] [address] [place] [id number] [address] [place] [address] Jan, Chronic obstructive pulmonar y disease, unspecified J44.9 and Anxiety disorder, unspecified F41.9 [facility] [address] [place] [id number] [address] [place] [address] Jan, Hypertension I10 ; Fibromyal medhat M79.7 and Lumbago with sciatica, left side M54.42 [place] [id number] [facility] [facility] [id number] [address] [place] [phone] 26 Jan, 2018 [facility] [address] [facility] [id number] [address] [place] [phone] 20 Jan, 2018 Cerebrovascular accident (CV A) due to occlusion of right cerebellar artery I63.541 [place] [address] [address] [facility] [id number] [address] [place] [phone] 19 Jan, 2018 [place] [address] [facility] [address] [facility] [id number] [address] [place] [address] 13 Jan, 2018 Arthritis M19.90 [place] [address] [address] [facility] [id number] [address] [place] [address] 07 Jan, 2018 [place] [address] [place] [id number] [address] [place] [phone] 04 Jan, 2018 Abnormal mammogram of right breast R92.8 [place] [address] [facility] [address] [facility] [id number] [address] [place] [address] Dec, Daytime somnolence R40.0 and Right otitis media with effusion H65.91 [place] [address] [address] [facility] [id number] [address] [place] [address] Dec, [place] [address] [place] [id number] [address] [place] [address] Dec, Cerebrovascular accident (CV A) due to occlusion of right cerebellar artery I63.541 [place] [id number] [facility] [facility] [id number] [address] [place] [address] Dec, [place] [address] [facility] [address] [facility] [id number] [address] [place] [address] Dec, [place] [address] [facility] [facility] [id number] [address] [place] [address] Nov, Bipolar 1 disorder, depresse d, partial remission F31.75 and Panic disorder with agoraphobia F40.01 [facility] [address] [id number] [address] [place] [address] Nov, Panlobular emphysema J43.1 [facility] [address] [id number] [address] [place] [address] Nov, Cerebrovascular accident (CV A) due to occlusion of right cerebellar artery I63.541 and Acute non-recurrent maxillary sinusitis J01.00 [facility] [address] [id number] [address] [place] [address] Nov, Panlobular emphysema J43.1 [facility] [address] [id number] [address] [place] [address] Nov, [facility] [address] [id number] [address] [place] [address] Nov, [facility] [address] [id number] [address] [place] [address] Nov, [facility] [address] [id number] [address] [place] [address] Nov, [facility] [address] [id number] [address] [place] [address] Nov, [facility] [address] [id number] [address] [place] [address] Nov, [facility] [address] [id number] [address] [place] [address] Nov, [facility] [address] [id number] [address] [place] [address] Nov, Mild persistent asthma witho ut complication J45.30 and Irritable bowel syndrome with both constipation and diarrhea K58.2 [facility] [address] [id number] [address] [place] [address] Nov, [facility] [address] [id number] [address] [place] [address] Oct, [facility] [address] [place] [id number] [address] [place] [address] 29 Oct, 2017 [facility] [address] [address] 28 Oct, 2017 Type 2 diabetes mellitus wit h diabetic neuropathy, unspecified 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.40 ; Diabetes E11.9 ; Slow transit constipation K59.01 ; Edema of both legs R60.0 and Dysfunction of right eustachian tube H69.81 [facility] [address] [facility] [id number] [address] [place] [address] Oct, Frequent headaches R51 [facility] [address] [place] [id number] [place] [address] Oct, [facility] [address] [place] [id number] [place] [phone] Oct, [facility] [address] [address] Oct, [facility] [address] [facility] [id number] [address] [place] [address] 18 Oct, 2017 [facility] [address] [address] Oct, [facility] [address] [place] [id number] [address] [place] [address] 14 Oct, 2017 [facility] [address] [place] [id number] [address] [place] [address] Oct, [facility] [address] [facility] [id number] [address] [place] [address] Oct, [facility] [address] [place] [id number] [address] [place] [address] September, Frequent headaches R51 [facility] [address] [place] [id number] [address] [place] [address] September, Bilateral otitis media with effusion H65.93 ; Dizziness R42 and Essential tremor G25.0 [facility] [address] [facility] [id number] [address] [place] [address] September, Chronic obstructive pulmonar y disease, unspecified COPD type J44.9 [facility] [address] [facility] [id number] [address] [place] [phone] September, Chronic obstructive pulmonar y disease, unspecified COPD type J44.9 [facility] [address] [facility] [id number] [address] [place] [address] September, Migraine without aura and wi thout status migrainosus, not intractable G43.009 [facility] [address] [facility] [id number] [address] [place] [address] September, [facility] [address] [facility] [id number] [address] [place] [address] September, [facility] [address] [facility] [id number] [address] [place] [address] September, [facility] [address] [facility] [id number] [address] [place] [address] September, Frequent headaches R51 [facility] [address] [facility] [id number] [address] [place] [address] Aug, [facility] [address] [facility] [id number] [address] [place] [address] Aug, Breast mass, right N63.10 [facility] [address] [facility] [id number] [address] [place] [address] Aug, Breast lump N63.0 [facility] [address] [facility] [id number] [address] [place] [address] Aug, [facility] [address] [facility] [id number] [address] [place] [address] Aug, Bipolar affective disorder, remission status unspecified F31.9 and Diabetes E11.9 [facility] [address] [facility] [id number] [address] [place] [address] Aug, Diabetes E11.9 ; Schizoaffec tive disorder, bipolar type F25.0 ; Pharyngitis due to other organism J02.8 ; Panlobular emphysema J43.1 and Irritable bowel syndrome with both constipation and diarrhea K58.2 [facility] [address] [id number] [address] [place] [address] Aug, Abnormal mammogram R92.8 [facility] [address] [id number] [address] [place] [address] Aug, [place] [address] [id number] [address] [place] [address] Aug, Bipolar 1 disorder, depresse d, moderate F31.32 ; Panic disorder with agoraphobia F40.01 and Chronic post-traumatic stress disorder (PTSD) F43.12 [place] [address] [id number] [address] [place] [address] Aug, [place] [address] [id number] [address] [place] [address] Aug, [place] [address] [id number] [address] [place] [address] Aug, [place] [address] [id number] [address] [place] [address] Jul, [place] [id number] [id number] [address] [place] [address] Jul, Mild persistent asthma witho ut complication J45.30 [place] [address] [id number] [address] [place] [phone] 19 Jul, 2017 Mild persistent asthma witho ut complication J45.30 [place] [address] [id number] [address] [place] [address] 15 Jul, 2017 Bipolar affective disorder, remission status unspecified F31.9 ; Diabetes E11.9 and Irritable bowel syndrome with constipation K58.1 [place] [address] [id number] [address] [place] [address] Jul, [facility] [address] [id number] [address] [place] [address] Jul, [facility] [address] [id number] [address] [place] [phone] 08 Jul, 2017 Frequent headaches R51 [facility] [address] [facility] [id number] [address] [place] [address] Jul, [facility] [address] [id number] [address] [place] [address] Jul, [facility] [address] [facility] [id number] [address] [place] [address] Jul, [facility] [address] [id number] [address] [place] [address] Jul, Frequent headaches R51 ; Fib rocystic disease of left breast N60.12 ; Fibrocystic disease of right breast N60.11 and Diabetes E11.9 [facility] [address] [address] [facility] [id number] [address] [place] [address] Jul, [facility] [address] [facility] [id number] [address] [place] [phone] Jul, [facility] [address] [facility] [id number] [address] [place] [address] 21 Jun, 2017 Exudative tonsillitis J03.90 [place] [address] [facility] [address] [facility] [id number] [address] [place] [address] Jun, [facility] [address] [facility] [id number] [address] [place] [address] 19 Jun, 2017 [facility] [address] [facility] [id number] [address] [place] [address] 15 Jun, 2017 Mild persistent asthma witho ut complication J45.30 ; Chronic obstructive pulmonary disease, unspecified COPD type J44.9 and Exudative tonsillitis J03.90 [place] [address] [facility] [address] [facility] [id number] [address] [place] [address] 13 Jun, 2017 Encounter for immunization Z 23 [facility] [address] [facility] [id number] [address] [place] [address] 12 Jun, 2017 [facility] [address] [facility] [id number] [address] [place] [address] 12 Jun, 2017 [facility] [address] [facility] [id number] [address] [place] [address] Jun, [facility] [address] [facility] [id number] [address] [place] [address] Jun, Tonsillitis J03.90 [facility] [address] [facility] [id number] [address] [place] [address] Jun, [facility] [address] [place] [id number] [place] [address] Jun, Acute non-recurrent maxillar y sinusitis J01.00 [facility] [address] [facility] [id number] [address] [place] [address] Jun, [facility] [address] [facility] [id number] [address] [place] [address] May, [facility] [address] [address] May, [facility] [address] [address] May, GERD (gastroesophageal reflu x disease) K21.9 [facility] [address] [facility] [id number] [address] [place] [address] May, Migraine without aura and wi thout status migrainosus, not intractable G43.009 [facility] [address] [facility] [id number] [address] [place] [address] May, [facility] [address] [facility] [id number] [address] [place] [address] May, [facility] [address] [address] May, Panlobular emphysema J43.1 a nd Acute non-recurrent maxillary sinusitis J01.00 [facility] [address] [facility] [id number] [address] [place] [address] May, Bipolar 1 disorder, depresse d, moderate F31.32 ; Panic disorder with agoraphobia F40.01 and Akathisia G25.71 [facility] [address] [facility] [id number] [address] [place] [address] Apr, [facility] [address] [place] [id number] [address] [place] [address] Apr, [place] [address] [address] Apr, Acute non-recurrent maxillar y sinusitis J01.00 [place] [address] [address] Apr, Panlobular emphysema J43.1 [facility] [address] [place] [id number] [address] [place] [address] Apr, [facility] [address] [place] [id number] [place] [address] Apr, Exudative tonsillitis J03.90 and Sore throat J02.9 [place] [address] [place] [id number] [address] [place] [address] 17 Mar, 2017 [facility] [address] [place] [id number] [address] [place] [address] Mar, Acute non-recurrent maxillar y sinusitis J01.00 [facility] [address] [facility] [id number] [address] [place] [address] Mar, [facility] [address] [place] [id number] [address] [place] [address] 09 Mar, 2017 Panlobular emphysema J43.1 a nd Diabetes E11.9 [facility] [address] [place] [id number] [address] [place] [address] Mar, [facility] [address] [facility] [id number] [address] [place] [address] Feb, Wheezing R06.2 and Acute rec urrent pansinusitis J01.41 [facility] [address] [place] [id number] [address] [place] [address] Feb, [facility] [address] [facility] [id number] [place] [address] Feb, Acute non-recurrent maxillar y sinusitis J01.00 [place] [address] [address] Feb, Chronic obstructive pulmonar y disease, unspecified J44.9 [facility] [address] [address] 02 Feb, 2017 Hypoxemia R09.02 and Chronic obstructive pulmonary disease, unspecified J44.9 [facility] [address] [place] [id number] [address] [place] [address] 28 Jan, 2017 Bipolar 1 disorder, depresse d, moderate F31.32 ; Panic disorder with agoraphobia F40.01 ; Chronic post-traumatic stress disorder (PTSD) F43.12 ; Diabetes E11.9 and Moderate persistent asthma without complication J45.40 [facility] [address] [place] [id number] [address] [place] [address] Jan, [facility] [address] [place] [id number] [address] [place] [address] 19 Jan, 2017 Acute non-recurrent maxillar y sinusitis J01.00 [facility] [address] [place] [id number] [address] [place] [address] 18 Jan, 2017 [facility] [address] [place] [id number] [address] [place] [address] 18 Jan, 2017 [facility] [address] [place] [id number] [address] [place] [address] Jan, Moderate persistent asthma w ithout complication J45.40 and Hypoxemia R09.02 [facility] [address] [id number] [address] [place] [address] Jan, Moderate persistent asthma w ithout complication J45.40 and Hypoxemia R09.02 [facility] [address] [id number] [address] [place] [address] Jan, [facility] [address] [id number] [address] [place] [phone] Dec, Acute non-recurrent maxillar y sinusitis J01.00 [facility] [address] [id number] [address] [place] [phone] Dec, Chronic obstructive pulmonar y disease, unspecified J44.9 [facility] [address] [id number] [address] [place] [phone] Dec, [facility] [address] [facility] [id number] [address] [place] [phone] Dec, Mild persistent asthma witho ut complication J45.30 and Other chronic pain G89.29 [facility] [address] [id number] [address] [place] [phone] Nov, [facility] [address] [id number] [address] [place] [phone] Nov, Acute non-recurrent maxillar y sinusitis J01.00 [facility] [address] [id number] [address] [place] [phone] Nov, [facility] [address] [id number] [address] [place] [phone] Nov, [facility] [address] [facility] [id number] [address] [place] [phone] Oct, [facility] [address] [facility] [facility] [id number] [address] [place] [phone] Oct, Bipolar 1 disorder, depresse d, partial remission F31.75 ; Panic disorder with agoraphobia F40.01 and Chronic post-traumatic stress disorder (PTSD) F43.12 [facility] [id number] [facility] [id number] [address] [place] [phone] Oct, Acute non-recurrent maxillar y sinusitis J01.00 [facility] [place] [address] [facility] [facility] [id number] [address] [place] [phone] Oct, [facility] [address] [facility] [facility] [id number] [address] [place] [phone] Oct, Diabetes E11.9 [facility] [address] [place] [id number] [address] [place] [phone] September, Diabetes E11.9 [facility] [address] [place] [id number] [address] [place] [phone] September, Diabetes E11.9 and Sinus tac hycardia R00.0 [facility] [address] [place] [id number] [address] [place] [phone] September, [place] [address] [facility] [facility] [id number] [address] [place] [address] September, [place] [address] [place] [id number] [address] [place] [phone] Aug, Diabetes E11.9 and Lumbago w ith sciatica, right side M54.41 [place] [address] [place] [id number] [address] [place] [address] Aug, [place] [address] [place] [id number] [address] [place] [address] Jul, Bipolar 1 disorder, depresse d, moderate F31.32 ; Panic disorder with agoraphobia F40.01 and Chronic post-traumatic stress disorder (PTSD) F43.12 [place] [address] [facility] [facility] [id number] [address] [place] [phone] Jul, Sore throat J02.9 [facility] [address] [facility] [id number] [address] [place] [address] Jul, [facility] [address] [id number] [address] [place] [address] Jul, [facility] [address] [id number] [address] [place] [phone] Jul, [facility] [address] [facility] [address] [facility] [id number] [address] [place] [address] Jul, [facility] [address] [id number] [address] [place] [phone] Jul, Sore throat J02.9 and Pharyn gitis, unspecified etiology J02.9 [facility] [address] [id number] [address] [place] [address] Jun, [facility] [address] [id number] [address] [place] [phone] Jun, Diabetes E11.9 [facility] [address] [id number] [address] [place] [phone] Jun, [facility] [address] [id number] [address] [place] [address] Jun, [facility] [address] [id number] [address] [place] [address] Jun, [facility] [address] [id number] [address] [place] [address] Jun, [facility] [address] [id number] [address] [place] [address] Jun, [facility] [address] [id number] [address] [place] [phone] Jun, [facility] [address] [id number] [address] [place] [phone] Jun, [facility] [address] [id number] [address] [place] [address] Jun, [facility] [address] [place] [id number] [address] [place] [address] May, Diabetes E11.9 ; Other chron ic pain G89.29 ; Acute recurrent maxillary sinusitis J01.01 ; Bipolar I disorder with depression F31.9 and Anxiety disorder, unspecified F41.9 [place] [address] [place] [id number] [address] [place] [address] May, [place] [address] [place] [id number] [place] [address] May, Diabetes E11.9 ; Bipolar I d isorder with depression F31.9 ; Anxiety disorder, unspecified F41.9 ; Other chronic pain G89.29 and Acute recurrent maxillary sinusitis J01.01 [place] [address] [place] [id number] [address] [place] [address] May, [place] [address] [address] May, Attention deficit hyperactiv ity disorder (ADHD), predominantly inattentive type F90.0 [place] [id number] [place] [address] May, [place] [address] [place] [id number] [place] [address] Apr, Attention deficit hyperactiv ity disorder (ADHD), predominantly inattentive type F90.0 and Non-seasonal allergic rhinitis due to other allergic trigger J30.89 [place] [address] [place] [id number] [address] [place] [address] Apr, Bipolar 1 disorder, depresse d, moderate F31.32 ; Panic disorder with agoraphobia F40.01 and Chronic post-traumatic stress disorder (PTSD) F43.12 [place] [address] [place] [id number] [address] [place] [address] 06 Apr, 2016 Dental examination Z01.20 [place] [address] [place] [id number] [address] [place] [address] Mar, [place] [id number] [id number] [address] [place] [address] Mar, [facility] [address] [id number] [address] [place] [address] Mar, Bipolar I disorder with depr ession F31.9 and Anxiety disorder, unspecified F41.9 [facility] [address] [id number] [address] [place] [address] Mar, Panic disorder with agorapho syd F40.01 ; Bipolar 1 disorder, depressed, moderate F31.32 and Chronic post-traumatic stress disorder (PTSD) F43.12 [place] [address] [id number] [address] [place] [address] Mar, [place] [id number] [id number] [address] [place] [address] Mar, Dental caries K02.9 [place] [address] [id number] [address] [place] [address] 24 Feb, 2016 Lumbago with sciatica, left side M54.42 ; Lumbago with sciatica, right side M54.41 and Other chronic pain G89.29 [facility] [address] [id number] [address] [place] [address] Feb, [facility] [address] [id number] [address] [place] [address] Feb, [facility] [address] [id number] [address] [place] [phone] 13 Feb, 2016 Bipolar I disorder with depr ession F31.9 ; PTSD (post-traumatic stress disorder) F43.10 and Mood disorder F39 [facility] [address] [id number] [address] [place] [address] Feb, [facility] [address] [id number] [address] [place] [address] 11 Feb, 2016 Dental examination Z01.20 [facility] [address] [place] [id number] [address] [place] [address] Feb, [facility] [address] [facility] [id number] [address] [place] [address] Feb, Acute bronchitis, unspecifie d organism J20.9 [facility] [address] [address] [facility] [id number] [address] [place] [address] Jan, Mood disorder F39 ; Migraine without aura and without status migrainosus, not intractable G43.009 ; Irritable bowel syndrome, unspecified type K58.9 ; Diabetes E11.9 and Encounter for immunization Z23 [facility] [address] [place] [id number] [place] [address] Jan, [facility] [address] [address] Jan, [facility] [address] [address] Jan, [facility] [address] [address] Jan, [facility] [address] [address] Jan, [facility] [address] [place] [id number] [place] [address] Dec, Bipolar I disorder with depr ession F31.9 ; PTSD (post-traumatic stress disorder) F43.10 and Panic disorder with agoraphobia F40.01 [facility] [address] [place] [id number] [address] [place] [address] Dec, Chronic obstructive pulmonar y disease, unspecified COPD type J44.9 ; Tremor R25.1 and Anxiety F41.9 [facility] [address] [place] [id number] [address] [place] [address] Dec, [facility] [address] [place] [id number] [address] [place] [address] Nov, Tremors of nervous system R2 5.1 and Cramping of feet R25.2 [facility] [address] [id number] [address] [place] [address] Nov, [facility] [address] [id number] [address] [place] [address] Nov, [facility] [address] [address] [facility] [id number] [address] [place] [address] Oct, Chronic obstructive pulmonar y disease, unspecified J44.9 [facility] [address] [id number] [address] [place] [address] Oct, [facility] [address] [address] [facility] [id number] [address] [place] [address] Oct, Tremor R25.1 [facility] [address] [facility] [id number] [address] [place] [phone] Oct, Bipolar I disorder with depr ession F31.9 ; Diabetes E11.9 ; PTSD (post-traumatic stress disorder) F43.10 and Panic disorder with agoraphobia F40.01 [facility] [address] [facility] [id number] [address] [place] [address] Oct, Mood disorder F39 [facility] [address] [address] [facility] [id number] [address] [place] [address] September, [facility] [address] [address] [facility] [id number] [address] [place] [address] September, Diabetes E11.9 ; Bipolar I d isorder with depression F31.9 ; PTSD (post-traumatic stress disorder) F43.10 and Panic disorder with agoraphobia F40.01 [facility] [address] [address] [facility] [id number] [address] [place] [address] September, Mood disorder F39 ; Schizoaf fective disorder, unspecified type F25.9 ; Arthritis M19.90 ; Tremor R25.1 ; Acute non-recurrent frontal sinusitis J01.10 and Blood in stool K92.1 [facility] [address] [id number] [address] [place] [address] September, [facility] [address] [id number] [address] [place] [address] September, Chronic obstructive pulmonar y disease, unspecified J44.9 [facility] [address] [id number] [address] [place] [address] September, Diabetes E11.9 [facility] [address] [id number] [address] [place] [address] Aug, Other bipolar disorder F31.8 9 and Anxiety disorder, unspecified F41.9 [facility] [address] [id number] [address] [place] [address] Aug, [facility] [address] [id number] [address] [place] [address] Aug, Diabetes E11.9 [facility] [address] [id number] [address] [place] [address] 18 Aug, 2015 [facility] [address] [id number] [address] [place] [address] 14 Aug, 2015 Diabetes E11.9 ; Fatigue R53 .83 and Dizziness R42 [facility] [address] [id number] [address] [place] [address] Aug, Other bipolar disorder F31.8 9 [facility] [address] [id number] [address] [place] [address] Aug, Generalized anxiety disorder F41.1 [facility] [address] [id number] [address] [place] [address] Aug, Other bipolar disorder F31.8 9 and Anxiety disorder, unspecified F41.9 [facility] [address] [id number] [address] [place] [address] Aug, [facility] [address] [id number] [address] [place] [address] Jul, [facility] [address] [facility] [address] [facility] [id number] [address] [place] [phone] Jul, [facility] [address] [address] [facility] [id number] [address] [place] [address] Jul, Bronchitis J40 [facility] [address] [address] [facility] [id number] [address] [place] [address] Jul, Anxiety disorder F41.9 [facility] [address] [address] [facility] [id number] [address] [place] [address] Jul, Other bipolar disorder F31.8 9 and Anxiety disorder, unspecified F41.9 [facility] [address] [address] [facility] [id number] [address] [place] [address] Jul, Other bipolar disorder F31.8 9 and Fibromyalgia M79.7 [facility] [address] [facility] [address] [facility] [id number] [address] [place] [address] Jul, [facility] [address] [address] [facility] [id number] [address] [place] [address] Jul, [facility] [address] [address] [facility] [id number] [address] [place] [address] Jul, [facility] [address] [facility] [id number] [address] [place] [address] Jul, Other bipolar disorder F31.8 9 and Anxiety disorder, unspecified F41.9 [facility] [address] [address] [facility] [id number] [address] [place] [address] Jun, GERD (gastroesophageal reflu x disease) K21.9 [facility] [address] [address] [facility] [id number] [address] [place] [address] Jun, [facility] [address] [address] [facility] [id number] [address] [place] [address] May, [facility] [address] [address] [facility] [id number] [address] [place] [address] May, Diabetes E11.9 ; Back pain M 54.9 ; GERD (gastroesophageal reflux disease) K21.9 ; Hypertension I10 and Peripheral neuropathy G62.9 [facility] [address] [id number] [address] [place] [address] Mar, [facility] [address] [id number] [address] [place] [address] Mar, [facility] [address] [address] [facility] [id number] [address] [place] [address] Mar, Acute sinusitis J01.90 and O titis media, left H66.92 [facility] [address] [id number] [address] [place] [address] Feb, [facility] [address] [address] [facility] [id number] [address] [place] [address] Feb, [facility] [address] [place] [id number] [address] [place] [phone] Feb, [facility] [address] [address] [facility] [id number] [address] [place] [address] Feb, [facility] [address] [facility] [id number] [address] [place] [address] Jan, [facility] [address] [facility] [id number] [address] [place] [address] Jan, Diabetes 250.00 and Back higinio n 724.5 [facility] [address] [address] [facility] [id number] [address] [place] [address] Jan, [facility] [address] [address] [facility] [id number] [address] [place] [address] Dec, Diabetes 250.00 ; Benign ess ential hypertension 401.1 and Allergic rhinitis 477.9 [facility] [address] [facility] [id number] [address] [place] [address] Dec, [facility] [address] [facility] [id number] [address] [place] [address] Dec, [facility] [address] [place] [id number] [address] [place] [address] Dec, Psychosis 298.9 [facility] [address] [id number] [address] [place] [address] Dec, Medication side effect 995.2 0 and Generalized anxiety disorder 300.02 [facility] [address] [id number] [address] [place] [address] Dec, Acquired cognitive dysfuncti on 294.9 [facility] [address] [id number] [address] [place] [address] Dec, [facility] [address] [address] [facility] [id number] [address] [place] [address] Dec, Unspecified myalgia and myos itis 729.1 and Generalized anxiety disorder 300.02 [facility] [address] [address] [facility] [id number] [address] [place] [address] Nov, [facility] [address] [facility] [id number] [address] [place] [address] Nov, [facility] [address] [facility] [id number] [address] [place] [address] Nov, [facility] [address] [address] [facility] [id number] [address] [place] [phone] Nov, Upper respiratory infection 465.9 and Chronic airway obstruction, not elsewhere classified 496 [facility] [address] [address] [facility] [id number] [address] [place] [address] Nov, Hyponatremia 276.1 [facility] [address] [address] [facility] [id number] [address] [place] [address] Oct, [facility] [address] [facility] [id number] [address] [place] [address] Oct, [facility] [address] [facility] [id number] [address] [place] [address] Oct, [facility] [address] [address] [facility] [id number] [address] [place] [address] Oct, [facility] [address] [facility] [id number] [address] [place] [address] 04 Oct, 2014 Hyponatremia 276.1 [facility] [address] [id number] [address] [place] [address] 03 Oct, 2014 [facility] [address] [address] [facility] [id number] [address] [place] [address] Oct, [facility] [address] [id number] [address] [place] [address] Oct, Generalized anxiety disorder 300.02 [facility] [address] [id number] [address] [place] [address] Oct, Generalized anxiety disorder 300.02 and Diabetes 250.00 [facility] [address] [facility] [id number] [address] [place] [address] Aug, [facility] [address] [facility] [id number] [address] [place] [address] Aug, [facility] [address] [facility] [id number] [address] [place] [address] Jul, [facility] [address] [id number] [address] [place] [address] Jul, [facility] [address] [facility] [id number] [address] [place] [phone] Jun, [facility] [address] [id number] [address] [place] [phone] Jun, [facility] [address] [facility] [id number] [address] [place] [address] Jun, [facility] [address] [id number] [address] [place] [phone] Jun, [facility] [address] [facility] [id number] [address] [place] [address] Jun, [facility] [address] [facility] [id number] [address] [place] [address] May, [facility] [address] [id number] [address] [place] [address], [place] [address] May, [facility] [address] [id number] [address] [place] [address], [place] [address] Apr, [facility] [address] [id number] [address] [place] [address], [place] [address] Apr, [facility] [address] [id number] [address] [place] [address], [place] [address] Apr, [facility] [address] [id number] [address] [place] [address], [place] [address] Apr, [facility] [address] [id number] [address] [place] [address], [place] [address] Apr, [facility] [address] [id number] [address] [place] [address], [place] [address] Apr, [facility] [address] [id number] [address] [place] [address], [place] [address] Apr, [facility] [address] [id number] [address] [place] [address], [place] [address] Apr, [facility] [address] [id number] [address] [place] [address], [place] [address] Feb, [facility] [address] [id number] [address] [place] [address], [place] [address] Feb, [facility] [address] [id number] [address] [place] [address], [place] [address] Jan, [facility] [address] [id number] [address] [place] [address], [place] [address] Jan, [facility] [address] [id number] [address] [place] [address], [place] [address] Dec, [facility] [address] [id number] [address] [place] [address], [place] [address] Dec, [facility] [address] [id number] [address] [place] [address], [place] [address] Dec, [facility] [address] [id number] [address] [place] [address], [place] [address] Nov, [facility] [address] [id number] [address] [place] [address], [place] [address] Nov, [facility] [address] [id number] [address] [place] [address], [place] [address] Nov, [facility] [address] [id number] [address] [place] [address], [place] [address] Oct, [facility] [address] [id number] [address] [place] [address], [place] [address] Oct, [facility] [address] [id number] [address] [place] [address], [place] [address] Oct, [facility] [address] [id number] [address] [place] [address], [place] [address] September, [facility] [address] [id number] [address] [place] [address], [place] [address] September, [facility] [address] [id number] [address] [place] [address], [place] [address] September, [facility] [address] [id number] [address] [place] [address], [place] [address] Aug, [facility] [address] [id number] [address] [place] [address], [place] [address] Aug, [facility] [address] [id number] [address] [place] [address], [place] [address] Aug, [facility] [address] [id number] [address] [place] [address], [place] [address] 16 Aug, 2011 [facility] [address] [id number] [address] [place] [address], [place] [address] Jul, [facility] [address] [id number] [address] [place] [address], [place] [address] Jun, [facility] [address] [id number] [address] [place] [address], [place] [address] 14 Jun, 2011 [facility] [address] [id number] [address] [place] [address], [place] [address] 13 Jun, 2011 [facility] [address] [id number] [address] [place] [address], [place] [address] 07 Jun, 2011 [facility] [address] [id number] [address] [place] [address], [place] [address] 03 Jun, 2011 [facility] [address] [id number] [address] [place] [address], [place] [address] 13 May, 2011 [facility] [address] [id number] [address] [place] [address], [place] [address] May, [facility] [address] [id number] [address] [place] [address], [place] [address] May, [facility] [address] [id number] [address] [place] [address], [place] [address] May, [facility] [address] [id number] [address] [place] [address], [place] [address] Apr, [facility] [address] [id number] [address] [place] [id number] Apr, [facility] [address] [id number] [address] [place] [phone] Apr, [facility] [address] [id number] [address] [place] [phone] Mar, [facility] [address] [id number] [address] [place] [address], [place] [address] Mar, [facility] [address] [id number] [address] [place] [address], [place] [address] Mar, [facility] [address] [id number] [address] [place] [id number] 13 Feb, 2011 [facility] [address] [id number] [address] [place] [phone] 13 Feb, 2011 [facility] [address] [id number] [address] [place] [id number] 13 Feb, 2011 [facility] [address] [id number] [address] [place] [phone] Nov, [facility] [address] [id number] [address] [place] [phone] September, [facility] [address] [id number] [address] [place] [phone] Aug, [facility] [address] [id number] [address] [place] [phone] Jul, [facility] [address] [id number] [address] [place] [phone] May, [facility] [address] [id number] [address] [place] [id number] Apr, [facility] [address] [id number] [address] [place] [phone] Apr, [facility] [address] [id number] [address] [place] [phone] Apr, [facility] [address] [id number] [address] [place] [phone] Apr, [facility] [address] [id number] [address] [place] [id number] Apr, IMMUNIZATIONS No Known Immunizations SOCIAL HISTORY Never Assessed REASON FOR VISIT Controlled Med Refill PLAN OF CARE VITAL SIGNS MEDICATIONS Medication Instructions Dosage Frequency Start Date End Date Duration S tatus Sudafed 30 MG Orally every 6 hrs 1 tablet as needed September, Active RESULTS No Results PROCEDURES No Known [...]
--- OUTSIDE RECORDS SUMMARY | 2019-07-17 10:54 | XMS REPORT ---
Author Author Sujey GANDHI Organization [facility] Address [address] [place] [address] Care Team Providers Care Activity Specialist Name Role Phone WHIT GANDHI Unavailable PROBLEMS Type Condition ICD9-CM Code AEV88-NZ Code Onset Dates Condition S tatus SNOMED Code Problem Diabetes E11.9 Active 39777681 Problem GERD (gastroesophageal reflux disease) K21.9 Active 979976942 Problem Anxiety disorder, unspecified F41.9 Active 305848548 Problem Hypertension I10 Active 0113591 3 Problem Other bipolar disorder F31.89 Active 23834766 Problem Fibromyalgia M79.7 Active 7797599 7 Problem Panic disorder with agoraphobia F40.01 Active 11648059 Problem Chronic obstructive pulmonary disease, unspecified J44.9 Active 35003683 Problem Lumbago with sciatica, left side M54.42 Active 671316326 Problem Migraine without aura and without status migrain osus, not intractable G43.009 Active 208033268 Problem Lumbago with sciatica, right side M54.41 Active 947255487 Problem Fibrocystic disease of right breast N60.11 Active 51623071 Problem Other chronic pain G89.29 Active 8 8965204 Problem Fibrocystic disease of left breast N60.12 Active 05857836 Problem Irritable bowel syndrome with constipation K58.1 Active 164869175 Problem Arthritis M19.90 Active 2035640 Problem Abnormal mammogram of right breast R92.8 Active 036612128 Problem Daytime somnolence R40.0 Active 1 [id number] Problem Bipolar affective disorder, remission status unspecified F31.9 Active 13819033 Problem Chronic post-traumatic stress disorder (PTSD) F43. 12 Active 555582347 Problem Bipolar 1 disorder, depressed, moderate F31.32 Active 15487723 Problem Schizoaffective disorder, bipolar type F25.0 Active 91333464 Problem Irritable bowel syndrome with both constipation and diarrh ea K58.2 Active 99723323 Problem Slow transit constipation K59.01 Acti ve 72286124 Problem Essential tremor G25.0 Active 609 021688 Problem Acute non-recurrent maxillary sinusitis J01.00 Active 13513044 Problem Back pain M54.9 Active 298922412 Problem Bipolar 1 disorder, depressed, partial remission F 31.75 Active 15641296 Problem Attention deficit hyperactiv ity disorder (ADHD), predominantly inattentive type F90.0 Active 33507364 Problem Bipolar I disorder with depression F31.9 Active 96047285 Problem Panlobular emphysema J43.1 Active 8701454 Problem Akathisia G25.71 Active 397263864 Problem Mild persistent asthma without complication J45.30 Active 400588248 Problem Moderate persistent asthma without complication J4 5.40 Active 547769095 ALLERGIES No Information ENCOUNTERS Encounter Location Date Diagnosis [facility] [address] [facility] [id number] [address] [place] [id number] Mar, [facility] [address] [facility] [id number] [address] [place] [address] Feb, [place] [id number] [place] [id number] Feb, Hyponatremia E87.1 [facility] [address] [facility] [id number] [address] [place] [id number] Feb, [facility] [address] [facility] [id number] [address] [place] [address] Feb, Daytime somnolence R40.0 [facility] [address] [facility] [id number] [address] [place] [address] Feb, [facility] [address] [facility] [id number] [address] [place] [id number] Jan, [facility] [address] [facility] [id number] [address] [place] [id number] Jan, [facility] [address] [facility] [id number] [address] [place] [phone] Jan, Chronic obstructive pulmonar y disease, unspecified J44.9 and Anxiety disorder, unspecified F41.9 [facility] [address] [id number] [address] [place] [phone] 27 Jan, 2018 Hypertension I10 ; Fibromyal medhat M79.7 and Lumbago with sciatica, left side M54.42 [facility] [address] [id number] [address] [place] [id number] 26 Jan, 2018 [facility] [address] [id number] [address] [place] [id number] 20 Jan, 2018 Cerebrovascular accident (CV A) due to occlusion of right cerebellar artery I63.541 [facility] [address] [id number] [address] [place] [phone] 19 Jan, 2018 [place] [address] [id number] [address] [place] [id number] 13 Jan, 2018 Arthritis M19.90 [place] [address] [id number] [address] [place] [phone] 07 Jan, 2018 [place] [address] [id number] [address] [place] [id number] 04 Jan, 2018 Abnormal mammogram of right breast R92.8 [place] [address] [id number] [address] [place] [id number] Dec, Daytime somnolence R40.0 and Right otitis media with effusion H65.91 [place] [address] [id number] [address] [place] [address] Dec, [facility] [address] [id number] [address] [place] [id number] Dec, Cerebrovascular accident (CV A) due to occlusion of right cerebellar artery I63.541 [facility] [address] [id number] [address] [place] [id number] Dec, [place] [address] [id number] [address] [place] [id number] Dec, [facility] [address] [id number] [address] [place] [address] Nov, Bipolar 1 disorder, depresse d, partial remission F31.75 and Panic disorder with agoraphobia F40.01 [facility] [address] [id number] [address] [place] [address] Nov, Panlobular emphysema J43.1 [facility] [address] [id number] [address] [place] [address] Nov, Cerebrovascular accident (CV A) due to occlusion of right cerebellar artery I63.541 and Acute non-recurrent maxillary sinusitis J01.00 [facility] [address] [id number] [address] [place] [address] Nov, Panlobular emphysema J43.1 [facility] [address] [id number] [address] [place] [address] Nov, [facility] [address] [id number] [address] [place] [address] Nov, [facility] [address] [id number] [address] [place] [address] Nov, [facility] [address] [id number] [address] [place] [phone] Nov, [facility] [address] [id number] [address] [place] [id number] Nov, [facility] [address] [id number] [address] [place] [address] Nov, [facility] [address] [id number] [address] [place] [address] Nov, [facility] [address] [id number] [address] [place] [address] Nov, Mild persistent asthma witho ut complication J45.30 and Irritable bowel syndrome with both constipation and diarrhea K58.2 [facility] [address] [id number] [address] [place] [address] Nov, [facility] [address] [id number] [address] [place] [id number] Oct, [facility] [address] [id number] [address] [place] [phone] Oct, [facility] [address] [facility] [id number] [address] [place] [address] Oct, Type 2 diabetes mellitus wit h diabetic neuropathy, unspecified whether termination clerk insulin use E11.40 ; Diabetes E11.9 ; Slow transit constipation K59.01 ; Edema of both legs R60.0 and Dysfunction of right eustachian tube H69.81 [facility] [address] [id number] [address] [place] [address] Oct, Frequent headaches R51 [facility] [address] [id number] [address] [place] [phone] Oct, [facility] [address] [id number] [address] [place] [address] Oct, [facility] [address] [id number] [address] [place] [address] Oct, [facility] [address] [id number] [address] [place] [id number] Oct, [facility] [address] [facility] [id number] [address] [place] [phone] Oct, [facility] [address] [facility] [id number] [address] [place] [address] Oct, [facility] [address] [facility] [id number] [address] [place] [address] Oct, [facility] [address] [facility] [id number] [address] [place] [id number] Oct, [facility] [address] [facility] [id number] [address] [place] [address] September, Frequent headaches R51 [facility] [address] [id number] [address] [place] [id number] September, Bilateral otitis media with effusion H65.93 ; Dizziness R42 and Essential tremor G25.0 [facility] [address] [facility] [id number] [address] [place] [id number] September, Chronic obstructive pulmonar y disease, unspecified COPD type J44.9 [facility] [address] [facility] [id number] [address] [place] [id number] September, Chronic obstructive pulmonar y disease, unspecified COPD type J44.9 [facility] [address] [id number] [address] [place] [address] September, Migraine without aura and wi thout status migrainosus, not intractable G43.009 [facility] [address] [facility] [id number] [address] [place] [address] September, [facility] [address] [place] [id number] [address] [place] [phone] September, [facility] [address] [facility] [id number] [address] [place] [address] September, [facility] [address] [place] [id number] [address] [place] [address] September, Frequent headaches R51 [facility] [address] [facility] [id number] [address] [place] [address] Aug, [facility] [address] [place] [id number] [address] [place] [address] Aug, Breast mass, right N63.10 [facility] [address] [facility] [id number] [address] [place] [id number] Aug, Breast lump N63.0 [facility] [address] [facility] [id number] [address] [place] [phone] Aug, [facility] [address] [facility] [id number] [address] [place] [address] Aug, Bipolar affective disorder, remission status unspecified F31.9 and Diabetes E11.9 [place] [address] [facility] [id number] [address] [place] [id number] 18 Aug, 2017 Diabetes E11.9 ; Schizoaffec tive disorder, bipolar type F25.0 ; Pharyngitis due to other organism J02.8 ; Panlobular emphysema J43.1 and Irritable bowel syndrome with both constipation and diarrhea K58.2 [place] [address] [facility] [id number] [address] [place] [id number] Aug, Abnormal mammogram R92.8 [place] [address] [facility] [id number] [address] [place] [id number] Aug, [place] [address] [place] [id number] [place] [address] Aug, Bipolar 1 disorder, depresse d, moderate F31.32 ; Panic disorder with agoraphobia F40.01 and Chronic post-traumatic stress disorder (PTSD) F43.12 [place] [address] [facility] [id number] [address] [place] [address] Aug, [place] [address] [facility] [id number] [address] [place] [address] Aug, [place] [address] [place] [id number] [address] [place] [id number] Aug, [place] [address] [facility] [id number] [address] [place] [address] Jul, [place] [address] [facility] [id number] [address] [place] [address] Jul, Mild persistent asthma witho ut complication J45.30 [place] [address] [facility] [id number] [address] [place] [phone] Jul, Mild persistent asthma witho ut complication J45.30 [place] [address] [facility] [id number] [address] [place] [id number] 15 Jul, 2017 Bipolar affective disorder, remission status unspecified F31.9 ; Diabetes E11.9 and Irritable bowel syndrome with constipation K58.1 [facility] [address] [id number] [address] [place] [id number] 13 Jul, 2017 [facility] [address] [id number] [address] [place] [id number] Jul, [facility] [address] [id number] [address] [place] [address] Jul, Frequent headaches R51 [facility] [address] [id number] [address] [place] [id number] Jul, [facility] [address] [id number] [address] [place] [address] Jul, [facility] [address] [id number] [address] [place] [id number] Jul, [facility] [address] [id number] [address] [place] [phone] Jul, Frequent headaches R51 ; Fib rocystic disease of left breast N60.12 ; Fibrocystic disease of right breast N60.11 and Diabetes E11.9 [facility] [address] [id number] [address] [place] [address] Jul, [facility] [address] [id number] [address] [place] [address] Jul, [facility] [address] [facility] [id number] [address] [place] [phone] Jun, Exudative tonsillitis J03.90 [facility] [address] [id number] [address] [place] [address] Jun, [facility] [address] [facility] [id number] [address] [place] [id number] Jun, [facility] [address] [facility] [id number] [address] [place] [id number] 15 Jun, 2017 Mild persistent asthma witho ut complication J45.30 ; Chronic obstructive pulmonary disease, unspecified COPD type J44.9 and Exudative tonsillitis J03.90 [facility] [address] [facility] [id number] [address] [place] [phone] 13 Jun, 2017 Encounter for immunization Z 23 [facility] [address] [id number] [address] [place] [address] 12 Jun, 2017 [facility] [address] [facility] [id number] [address] [place] [address] 12 Jun, 2017 [facility] [address] [facility] [id number] [address] [place] [phone] Jun, [facility] [address] [facility] [id number] [address] [place] [address] 06 Jun, 2017 Tonsillitis J03.90 [facility] [address] [facility] [id number] [address] [place] [address] 05 Jun, 2017 [facility] [address] [facility] [id number] [address] [place] [address] Jun, Acute non-recurrent maxillar y sinusitis J01.00 [facility] [address] [facility] [id number] [address] [place] [id number] 02 Jun, 2017 [facility] [address] [facility] [id number] [address] [place] [address] May, [facility] [address] [facility] [id number] [address] [place] [id number] May, [facility] [address] [facility] [id number] [address] [place] [id number] May, GERD (gastroesophageal reflu x disease) K21.9 [facility] [address] [facility] [id number] [address] [place] [address] May, Migraine without aura and wi thout status migrainosus, not intractable G43.009 [facility] [address] [facility] [id number] [address] [place] [address] May, [facility] [address] [id number] [address] [place] [phone] 16 May, 2017 [facility] [address] [id number] [address] [place] [id number] May, Panlobular emphysema J43.1 a nd Acute non-recurrent maxillary sinusitis J01.00 [facility] [address] [id number] [address] [place] [phone] 04 May, 2017 Bipolar 1 disorder, depresse d, moderate F31.32 ; Panic disorder with agoraphobia F40.01 and Akathisia G25.71 [facility] [address] [id number] [address] [place] [address] Apr, [facility] [address] [facility] [id number] [address] [place] [phone] Apr, [facility] [address] [facility] [id number] [address] [place] [address] Apr, Acute non-recurrent maxillar y sinusitis J01.00 [facility] [address] [id number] [address] [place] [id number] Apr, Panlobular emphysema J43.1 [facility] [address] [facility] [id number] [address] [place] [phone] 04 Apr, 2017 [facility] [address] [id number] [address] [place] [address] 04 Apr, 2017 Exudative tonsillitis J03.90 and Sore throat J02.9 [facility] [address] [id number] [address] [place] [id number] 17 Mar, 2017 [facility] [address] [facility] [id number] [address] [place] [address] 15 Mar, 2017 Acute non-recurrent maxillar y sinusitis J01.00 [facility] [address] [facility] [id number] [address] [place] [phone] Mar, [facility] [address] [facility] [id number] [address] [place] [address] Mar, Panlobular emphysema J43.1 a nd Diabetes E11.9 [facility] [address] [facility] [id number] [address] [place] [id number] 06 Mar, 2017 [facility] [address] [facility] [id number] [address] [place] [id number] 24 Feb, 2017 Wheezing R06.2 and Acute rec urrent pansinusitis J01.41 [facility] [address] [facility] [id number] [address] [place] [phone] Feb, [facility] [address] [facility] [id number] [place] [id number] Feb, Acute non-recurrent maxillar y sinusitis J01.00 [place] [address] [place] [id number] [place] [address] Feb, Chronic obstructive pulmonar y disease, unspecified J44.9 [facility] [address] [place] [id number] [address] [place] [phone] Feb, Hypoxemia R09.02 and Chronic obstructive pulmonary disease, unspecified J44.9 [facility] [address] [place] [id number] [place] [phone] 28 Jan, 2017 Bipolar 1 disorder, depresse d, moderate F31.32 ; Panic disorder with agoraphobia F40.01 ; Chronic post-traumatic stress disorder (PTSD) F43.12 ; Diabetes E11.9 and Moderate persistent asthma without complication J45.40 [facility] [address] [place] [id number] [address] [place] [address] Jan, [facility] [address] [place] [id number] [place] [id number] 19 Jan, 2017 Acute non-recurrent maxillar y sinusitis J01.00 [place] [address] [place] [id number] [address] [place] [id number] 18 Jan, 2017 [facility] [address] [place] [id number] [place] [id number] 18 Jan, 2017 [facility] [address] [id number] [address] [place] [id number] 12 Jan, 2017 Moderate persistent asthma w ithout complication J45.40 and Hypoxemia R09.02 [facility] [address] [id number] [address] [place] [id number] 11 Jan, 2017 Moderate persistent asthma w ithout complication J45.40 and Hypoxemia R09.02 [facility] [address] [id number] [address] [place] [phone] Jan, [facility] [address] [id number] [address] [place] [id number] Dec, Acute non-recurrent maxillar y sinusitis J01.00 [facility] [address] [id number] [address] [place] [id number] Dec, Chronic obstructive pulmonar y disease, unspecified J44.9 [facility] [address] [id number] [address] [place] [id number] Dec, [facility] [address] [id number] [address] [place] [id number] Dec, Mild persistent asthma witho ut complication J45.30 and Other chronic pain G89.29 [facility] [address] [id number] [address] [place] [id number] Nov, [facility] [address] [id number] [address] [place] [id number] Nov, Acute non-recurrent maxillar y sinusitis J01.00 [facility] [address] [id number] [address] [place] [id number] Nov, [facility] [address] [id number] [address] [place] [id number] Nov, [facility] [address] [id number] [address] [place] [id number] Oct, [facility] [address] [id number] [address] [place] [id number] Oct, Bipolar 1 disorder, depresse d, partial remission F31.75 ; Panic disorder with agoraphobia F40.01 and Chronic post-traumatic stress disorder (PTSD) F43.12 [facility] [address] [facility] [id number] [address] [place] [id number] Oct, Acute non-recurrent maxillar y sinusitis J01.00 [facility] [address] [id number] [address] [place] [id number] Oct, [facility] [address] [facility] [id number] [address] [place] [id number] Oct, Diabetes E11.9 [facility] [address] [place] [id number] [address] [place] [id number] September, Diabetes E11.9 [facility] [address] [place] [id number] [address] [place] [id number] September, Diabetes E11.9 and Sinus tac hycardia R00.0 [place] [address] [facility] [id number] [address] [place] [address] September, [place] [address] [place] [id number] [address] [place] [address] September, [place] [address] [place] [id number] [address] [place] [address] Aug, Diabetes E11.9 and Lumbago w ith sciatica, right side M54.41 [place] [address] [facility] [id number] [address] [place] [address] Aug, [place] [address] [place] [id number] [address] [place] [address] 30 Jul, 2016 Bipolar 1 disorder, depresse d, moderate F31.32 ; Panic disorder with agoraphobia F40.01 and Chronic post-traumatic stress disorder (PTSD) F43.12 [place] [address] [place] [id number] [address] [place] [address] Jul, Sore throat J02.9 [facility] [address] [id number] [address] [place] [address] Jul, [facility] [address] [id number] [address] [place] [address] Jul, [facility] [address] [id number] [address] [place] [address] Jul, [facility] [address] [id number] [address] [place] [address] Jul, [facility] [address] [id number] [address] [place] [address] Jul, Sore throat J02.9 and Pharyn gitis, unspecified etiology J02.9 [facility] [address] [id number] [address] [place] [address] Jun, [facility] [address] [id number] [address] [place] [address] 23 Jun, 2016 Diabetes E11.9 [facility] [address] [id number] [address] [place] [address] Jun, [facility] [address] [id number] [address] [place] [address] Jun, [facility] [address] [id number] [address] [place] [address] Jun, [facility] [address] [id number] [address] [place] [address] Jun, [facility] [address] [id number] [address] [place] [address] Jun, [facility] [address] [id number] [address] [place] [address] 15 Jun, 2016 [facility] [address] [facility] [id number] [address] [place] [address] Jun, [place] [address] [place] [id number] [address] [place] [address] Jun, [place] [address] [place] [id number] [place] [address] May, Diabetes E11.9 ; Other chron ic pain G89.29 ; Acute recurrent maxillary sinusitis J01.01 ; Bipolar I disorder with depression F31.9 and Anxiety disorder, unspecified F41.9 [place] [address] [place] [id number] [address] [place] [address] May, [place] [address] [place] [id number] [address] [place] [address] May, Diabetes E11.9 ; Bipolar I d isorder with depression F31.9 ; Anxiety disorder, unspecified F41.9 ; Other chronic pain G89.29 and Acute recurrent maxillary sinusitis J01.01 [place] [address] [address] May, [place] [address] [place] [id number] [place] [address] May, Attention deficit hyperactiv ity disorder (ADHD), predominantly inattentive type F90.0 [place] [address] [address] May, [place] [address] [place] [id number] [address] [place] [address] Apr, Attention deficit hyperactiv ity disorder (ADHD), predominantly inattentive type F90.0 and Non-seasonal allergic rhinitis due to other allergic trigger J30.89 [place] [address] [place] [id number] [address] [place] [address] Apr, Bipolar 1 disorder, depresse d, moderate F31.32 ; Panic disorder with agoraphobia F40.01 and Chronic post-traumatic stress disorder (PTSD) F43.12 [place] [address] [place] [id number] [address] [place] [address] 06 Apr, 2016 Dental examination Z01.20 [facility] [address] [id number] [address] [place] [address] Mar, [facility] [address] [id number] [address] [place] [address] Mar, [facility] [address] [id number] [address] [place] [address] Mar, Bipolar I disorder with depr ession F31.9 and Anxiety disorder, unspecified F41.9 [facility] [address] [id number] [address] [place] [phone] 08 Mar, 2016 Panic disorder with agorapho syd F40.01 ; Bipolar 1 disorder, depressed, moderate F31.32 and Chronic post-traumatic stress disorder (PTSD) F43.12 [place] [address] [id number] [address] [place] [address] Mar, [place] [address] [id number] [address] [place] [address] Mar, Dental caries K02.9 [facility] [address] [id number] [address] [place] [address] 24 Feb, 2016 Lumbago with sciatica, left side M54.42 ; Lumbago with sciatica, right side M54.41 and Other chronic pain G89.29 [facility] [address] [id number] [address] [place] [address] Feb, [facility] [address] [id number] [address] [place] [address] 14 Feb, 2016 [facility] [address] [id number] [address] [place] [address] 13 Feb, 2016 Bipolar I disorder with depr ession F31.9 ; PTSD (post-traumatic stress disorder) F43.10 and Mood disorder F39 [facility] [address] [id number] [address] [place] [address] Feb, [facility] [address] [address] Feb, Dental examination Z01.20 [facility] [address] [address] 07 Feb, 2016 [facility] [address] [address] Feb, Acute bronchitis, unspecifie d organism J20.9 [facility] [address] [address] Jan, Mood disorder F39 ; Migraine without aura and without status migrainosus, not intractable G43.009 ; Irritable bowel syndrome, unspecified type K58.9 ; Diabetes E11.9 and Encounter for immunization Z23 [facility] [address] [address] 15 Jan, 2016 [facility] [address] [address] Jan, [facility] [address] [address] Jan, [facility] [address] [address] Jan, [facility] [address] [address] Jan, [facility] [address] [address] Dec, Bipolar I disorder with depr ession F31.9 ; PTSD (post-traumatic stress disorder) F43.10 and Panic disorder with agoraphobia F40.01 [facility] [address] [address] Dec, Chronic obstructive pulmonar y disease, unspecified COPD type J44.9 ; Tremor R25.1 and Anxiety F41.9 [place] [address] [address] Dec, [place] [address] [facility] [id number] [address] [place] [address] Nov, Tremors of nervous system R2 5.1 and Cramping of feet R25.2 [facility] [address] [id number] [address] [place] [address] Nov, [facility] [address] [facility] [id number] [address] [place] [address] Nov, [facility] [address] [facility] [id number] [address] [place] [address] Oct, Chronic obstructive pulmonar y disease, unspecified J44.9 [facility] [address] [facility] [id number] [address] [place] [address] Oct, [facility] [address] [place] [id number] [address] [place] [address] Oct, Tremor R25.1 [facility] [address] [place] [id number] [address] [place] [address] Oct, Bipolar I disorder with depr ession F31.9 ; Diabetes E11.9 ; PTSD (post-traumatic stress disorder) F43.10 and Panic disorder with agoraphobia F40.01 [facility] [address] [facility] [id number] [address] [place] [address] Oct, Mood disorder F39 [place] [address] [place] [id number] [address] [place] [address] September, [facility] [address] [facility] [id number] [address] [place] [address] September, Diabetes E11.9 ; Bipolar I d isorder with depression F31.9 ; PTSD (post-traumatic stress disorder) F43.10 and Panic disorder with agoraphobia F40.01 [facility] [address] [facility] [id number] [address] [place] [address] September, Mood disorder F39 ; Schizoaf fective disorder, unspecified type F25.9 ; Arthritis M19.90 ; Tremor R25.1 ; Acute non-recurrent frontal sinusitis J01.10 and Blood in stool K92.1 [facility] [address] [facility] [id number] [address] [place] [address] September, [facility] [address] [facility] [id number] [address] [place] [address] September, Chronic obstructive pulmonar y disease, unspecified J44.9 [facility] [address] [facility] [id number] [address] [place] [address] September, Diabetes E11.9 [facility] [address] [facility] [id number] [address] [place] [address] Aug, Other bipolar disorder F31.8 9 and Anxiety disorder, unspecified F41.9 [facility] [address] [facility] [id number] [address] [place] [address] Aug, [facility] [address] [facility] [id number] [address] [place] [address] Aug, Diabetes E11.9 [facility] [address] [id number] [address] [place] [address] Aug, [facility] [address] [facility] [id number] [address] [place] [address] Aug, Diabetes E11.9 ; Fatigue R53 .83 and Dizziness R42 [facility] [address] [facility] [id number] [address] [place] [address] Aug, Other bipolar disorder F31.8 9 [facility] [address] [id number] [address] [place] [address] Aug, Generalized anxiety disorder F41.1 [facility] [address] [facility] [id number] [address] [place] [address] Aug, Other bipolar disorder F31.8 9 and Anxiety disorder, unspecified F41.9 [facility] [address] [facility] [id number] [address] [place] [address] Aug, [place] [address] [id number] [address] [place] [address] Jul, [facility] [address] [id number] [address] [place] [address] 24 Jul, 2015 [facility] [address] [id number] [address] [place] [address] Jul, Bronchitis J40 [facility] [address] [id number] [address] [place] [address] Jul, Anxiety disorder F41.9 [facility] [address] [id number] [address] [place] [address] Jul, Other bipolar disorder F31.8 9 and Anxiety disorder, unspecified F41.9 [facility] [address] [id number] [address] [place] [address] Jul, Other bipolar disorder F31.8 9 and Fibromyalgia M79.7 [facility] [address] [id number] [address] [place] [address] Jul, [facility] [address] [id number] [address] [place] [address] Jul, [facility] [address] [facility] [id number] [address] [place] [address] Jul, [facility] [address] [id number] [address] [place] [address] Jul, Other bipolar disorder F31.8 9 and Anxiety disorder, unspecified F41.9 [facility] [address] [id number] [address] [place] [address] Jun, GERD (gastroesophageal reflu x disease) K21.9 [facility] [address] [id number] [address] [place] [address] Jun, [facility] [address] [facility] [id number] [address] [place] [address] May, [facility] [address] [place] [id number] [address] [place] [address] May, Diabetes E11.9 ; Back pain M 54.9 ; GERD (gastroesophageal reflux disease) K21.9 ; Hypertension I10 and Peripheral neuropathy G62.9 [facility] [address] [facility] [id number] [address] [place] [address] Mar, [facility] [address] [facility] [id number] [address] [place] [address] Mar, [facility] [address] [place] [id number] [place] [address] Mar, Acute sinusitis J01.90 and O titis media, left H66.92 [facility] [address] [place] [id number] [address] [place] [address] Feb, [facility] [address] [place] [id number] [place] [phone] Feb, [facility] [address] [place] [id number] [place] [address] Feb, [facility] [address] [place] [id number] [address] [place] [address] Feb, [facility] [address] [place] [id number] [place] [address] Jan, [facility] [address] [place] [id number] [address] [place] [address] Jan, Diabetes 250.00 and Back higinio n 724.5 [facility] [address] [facility] [id number] [address] [place] [address] Jan, [facility] [address] [place] [id number] [place] [address] Dec, Diabetes 250.00 ; Benign ess ential hypertension 401.1 and Allergic rhinitis 477.9 [facility] [address] [place] [id number] [address] [place] [address] Dec, [facility] [address] [place] [id number] [address] [place] [address] Dec, [facility] [address] [id number] [address] [place] [address] Dec, Psychosis 298.9 [facility] [address] [facility] [id number] [address] [place] [address] Dec, Medication side effect 995.2 0 and Generalized anxiety disorder 300.02 [facility] [address] [id number] [address] [place] [address] Dec, Acquired cognitive dysfuncti on 294.9 [facility] [address] [id number] [address] [place] [address] Dec, [facility] [address] [facility] [id number] [address] [place] [address] Dec, Unspecified myalgia and myos itis 729.1 and Generalized anxiety disorder 300.02 [facility] [address] [facility] [id number] [address] [place] [address] Nov, [facility] [address] [facility] [id number] [address] [place] [address] Nov, [facility] [address] [facility] [id number] [address] [place] [address] Nov, [facility] [address] [facility] [id number] [address] [place] [address] Nov, Upper respiratory infection 465.9 and Chronic airway obstruction, not elsewhere classified 496 [facility] [address] [id number] [address] [place] [address] Nov, Hyponatremia 276.1 [facility] [address] [facility] [id number] [address] [place] [address] Oct, [facility] [address] [facility] [id number] [address] [place] [address] Oct, [facility] [address] [place] [id number] [address] [place] [address] Oct, [facility] [address] [facility] [id number] [address] [place] [address] Oct, [facility] [address] [facility] [id number] [address] [place] [address] Oct, Hyponatremia 276.1 [facility] [address] [facility] [id number] [address] [place] [address] Oct, [facility] [address] [id number] [address] [place] [address] Oct, [facility] [address] [facility] [id number] [address] [place] [address] Oct, Generalized anxiety disorder 300.02 [facility] [address] [facility] [id number] [address] [place] [address] Oct, Generalized anxiety disorder 300.02 and Diabetes 250.00 [facility] [address] [facility] [id number] [address] [place] [address] Aug, [facility] [address] [facility] [id number] [address] [place] [address] Aug, [facility] [address] [facility] [id number] [address] [place] [address] Jul, [facility] [address] [facility] [id number] [address] [place] [address] Jul, [facility] [address] [facility] [id number] [address] [place] [address] Jun, [facility] [address] [facility] [id number] [address] [place] [address] Jun, [facility] [address] [facility] [id number] [address] [place] [address] Jun, [facility] [address] [facility] [id number] [address] [place] [address] 06 Jun, 2013 [facility] [address] [facility] [id number] [address] [place] [address] Jun, [facility] [address] [id number] [address] [place] [address], [place] [address] May, [facility] [address] [id number] [address] [place] [address], [place] [address] May, [facility] [address] [id number] [address] [place] [address], [place] [address] Apr, [facility] [address] [id number] [address] [place] [address], [place] [address] Apr, [facility] [address] [id number] [address] [place] [address], [place] [address] Apr, [facility] [address] [id number] [address] [place] [address], [place] [address] Apr, [facility] [address] [id number] [address] [place] [address], [place] [address] Apr, [facility] [address] [id number] [address] [place] [address], [place] [address] Apr, [facility] [address] [id number] [address] [place] [address], [place] [address] Apr, [facility] [address] [id number] [address] [place] [address], [place] [address] Apr, [facility] [address] [id number] [address] [place] [address], [place] [address] Feb, [facility] [address] [id number] [address] [place] [address], [place] [address] Feb, [facility] [address] [id number] [address] [place] [address], [place] [address] Jan, [facility] [address] [id number] [address] [place] [address], [place] [address] Jan, [facility] [address] [id number] [address] [place] [address], [place] [address] Dec, [facility] [address] [id number] [address] [place] [address], [place] [address] Dec, [facility] [address] [id number] [address] [place] [address], [place] [address] Dec, [facility] [address] [id number] [address] [place] [address], [place] [address] Nov, [facility] [address] [id number] [address] [place] [address], [place] [address] Nov, [facility] [address] [id number] [address] [place] [address], [place] [address] Nov, [facility] [address] [id number] [address] [place] [address], [place] [address] Oct, [facility] [address] [id number] [address] [place] [address], [place] [address] Oct, [facility] [address] [id number] [address] [place] [address], [place] [address] Oct, [facility] [address] [id number] [address] [place] [address], [place] [address] September, [facility] [address] [id number] [address] [place] [address], [place] [address] September, [facility] [address] [id number] [address] [place] [address], [place] [address] September, [facility] [address] [id number] [address] [place] [address], [place] [address] Aug, [facility] [address] [id number] [address] [place] [address], [place] [address] Aug, [facility] [address] [id number] [address] [place] [address], [place] [address] Aug, [facility] [address] [id number] [address] [place] [address], [place] [address] 16 Aug, 2011 [facility] [address] [id number] [address] [place] [address], [place] [address] Jul, [facility] [address] [id number] [address] [place] [address], [place] [address] Jun, [facility] [address] [id number] [address] [place] [address], [place] [address] 14 Jun, 2011 [facility] [address] [id number] [address] [place] [address], [place] [address] 13 Jun, 2011 [facility] [address] [id number] [address] [place] [address], [place] [address] 07 Jun, 2011 [facility] [address] [id number] [address] [place] [address], [place] [address] 03 Jun, 2011 [facility] [address] [id number] [address] [place] [address], [place] [address] 13 May, 2011 [facility] [address] [id number] [address] [place] [address], [place] [address] May, [facility] [address] [id number] [address] [place] [address], [place] [address] May, [facility] [address] [id number] [address] [place] [address], [place] [address] May, [facility] [address] [id number] [address] [place] [address], [place] [address] Apr, [facility] [address] [id number] [address] [place] [address], [place] [address] Apr, [facility] [address] [id number] [address] [place] [address], [place] [address] 05 Apr, 2011 [facility] [address] [id number] [address] [place] [address], [place] [address] Mar, [facility] [facility] [address] [id number] [address] [place] [address], [place] [id number] Mar, [facility] [address] [id number] [address] [place] [address], [place] [id number] Mar, [facility] [address] [id number] [address] [place] [id number] 13 Feb, 2011 [facility] [address] [id number] [address] [place] [id number] 13 Feb, 2011 [facility] [address] [id number] [address] [place] [id number] 13 Feb, 2011 [facility] [address] [id number] [address] [place] [id number] Nov, [facility] [address] [id number] [address] [place] [id number] September, [facility] [address] [id number] [address] [place] [id number] Aug, [facility] [address] [id number] [address] [place] [id number] Jul, [facility] [address] [id number] [address] [place] [phone] May, [facility] [address] [id number] [address] [place] [id number] Apr, [facility] [address] [id number] [address] [place] [phone] Apr, [facility] [address] [id number] [address] [place] [id number] Apr, [facility] [address] [id number] [address] [place] [id number] Apr, [facility] [address] [id number] [address] [place] [id number] Apr, IMMUNIZATIONS No Known Immunizations SOCIAL HISTORY [...]
--- OUTSIDE RECORDS SUMMARY | 2019-07-17 10:55 | XMS REPORT ---
Author Author Sujey GANDHI Organization [facility] Address [address] [place] [address] Care Team Providers Care Guide Dog Mobility Instructor Name Role Phone WHIT GANDHI Unavailable PROBLEMS Type Condition ICD9-CM Code JUT65-DC Code Onset Dates Condition S tatus SNOMED Code Problem Diabetes E11.9 Active 78774122 Problem GERD (gastroesophageal reflux disease) K21.9 Active 839855446 Problem Anxiety disorder, unspecified F41.9 Active 310038882 Problem Hypertension I10 Active 6126903 3 Problem Other bipolar disorder F31.89 Active 27068232 Problem Fibromyalgia M79.7 Active 8871776 7 Problem Panic disorder with agoraphobia F40.01 Active 33599869 Problem Chronic obstructive pulmonary disease, unspecified J44.9 Active 19832690 Problem Lumbago with sciatica, left side M54.42 Active 149542805 Problem Migraine without aura and without status migrain osus, not intractable G43.009 Active 839201150 Problem Lumbago with sciatica, right side M54.41 Active 596390261 Problem Fibrocystic disease of right breast N60.11 Active 15876951 Problem Other chronic pain G89.29 Active 8 7264507 Problem Fibrocystic disease of left breast N60.12 Active 27702074 Problem Irritable bowel syndrome with constipation K58.1 Active 265843987 Problem Arthritis M19.90 Active 0148638 Problem Abnormal mammogram of right breast R92.8 Active 006804609 Problem Daytime somnolence R40.0 Active 1 59723159953 Problem Bipolar affective disorder, remission status unspecified F31.9 Active 01630363 Problem Chronic post-traumatic stress disorder (PTSD) F43. 12 Active 740770634 Problem Bipolar 1 disorder, depressed, moderate F31.32 Active 17337682 Problem Schizoaffective disorder, bipolar type F25.0 Active 24888861 Problem Irritable bowel syndrome with both constipation and diarrh ea K58.2 Active 17355107 Problem Slow transit constipation K59.01 Acti ve 86653667 Problem Essential tremor G25.0 Active 609 038966 Problem Acute non-recurrent maxillary sinusitis J01.00 Active 40813401 Problem Back pain M54.9 Active 217508814 Problem Bipolar 1 disorder, depressed, partial remission F 31.75 Active 94384163 Problem Attention deficit hyperactiv ity disorder (ADHD), predominantly inattentive type F90.0 Active 12260144 Problem Bipolar I disorder with depression F31.9 Active 37421938 Problem Panlobular emphysema J43.1 Active 7272101 Problem Akathisia G25.71 Active 708403836 Problem Mild persistent asthma without complication J45.30 Active 008105572 Problem Moderate persistent asthma without complication J4 5.40 Active 384693214 ALLERGIES No Information ENCOUNTERS Encounter Location Date Diagnosis [place] [address] [address] Mar, [place] [address] [address] Feb, [facility] [address] [address] 04 Feb, 2018 Daytime somnolence R40.0 [place] [address] [address] Feb, [facility] [address] [address] Jan, [facility] [address] [address] Jan, [facility] [address] [address] Jan, Chronic obstructive pulmonar y disease, unspecified J44.9 and Anxiety disorder, unspecified F41.9 [facility] [address] [address] Jan, Hypertension I10 ; Fibromyal medhat M79.7 and Lumbago with sciatica, left side M54.42 [facility] [address] [place] [id number] [address] [place] [address] 26 Jan, 2018 [facility] [address] [id number] [address] [place] [address] Jan, Cerebrovascular accident (CV A) due to occlusion of right cerebellar artery I63.541 [facility] [address] [id number] [address] [place] [address] 19 Jan, 2018 [facility] [address] [id number] [address] [place] [address] 13 Jan, 2018 Arthritis M19.90 [facility] [address] [id number] [address] [place] [address] 07 Jan, 2018 [place] [address] [facility] [place] [id number] [address] [place] [address] 04 Jan, 2018 Abnormal mammogram of right breast R92.8 [place] [address] [place] [id number] [address] [place] [address] Dec, Daytime somnolence R40.0 and Right otitis media with effusion H65.91 [place] [id number] [id number] [address] [place] [address] Dec, [place] [address] [facility] [place] [id number] [address] [place] [address] Dec, Cerebrovascular accident (CV A) due to occlusion of right cerebellar artery I63.541 [facility] [address] [id number] [address] [place] [address] Dec, [facility] [address] [facility] [place] [id number] [address] [place] [address] Dec, [place] [address] [facility] [place] [id number] [address] [place] [address] Nov, Bipolar 1 disorder, depresse d, partial remission F31.75 and Panic disorder with agoraphobia F40.01 [place] [address] [place] [id number] [address] [place] [address] Nov, Panlobular emphysema J43.1 [facility] [address] [id number] [address] [place] [address] Nov, Cerebrovascular accident (CV A) due to occlusion of right cerebellar artery I63.541 and Acute non-recurrent maxillary sinusitis J01.00 [facility] [address] [id number] [address] [place] [address] Nov, Panlobular emphysema J43.1 [facility] [address] [id number] [address] [place] [address] Nov, [facility] [address] [id number] [address] [place] [address] Nov, [facility] [address] [id number] [address] [place] [address] Nov, [facility] [address] [id number] [address] [place] [address] Nov, [facility] [address] [id number] [address] [place] [address] Nov, [facility] [address] [id number] [address] [place] [address] Nov, [facility] [address] [id number] [address] [place] [address] Nov, [facility] [address] [id number] [address] [place] [address] Nov, Mild persistent asthma witho ut complication J45.30 and Irritable bowel syndrome with both constipation and diarrhea K58.2 [facility] [address] [id number] [address] [place] [address] Nov, [facility] [address] [id number] [address] [place] [address] Oct, [facility] [address] [id number] [address] [place] [address] Oct, [facility] [address] [id number] [address] [place] [address] Oct, Type 2 diabetes mellitus wit h diabetic neuropathy, unspecified whether long term care phlebotomist insulin use E11.40 ; Diabetes E11.9 ; Slow transit constipation K59.01 ; Edema of both legs R60.0 and Dysfunction of right eustachian tube H69.81 [facility] [address] [id number] [address] [place] [address] Oct, Frequent headaches R51 [facility] [address] [id number] [address] [place] [address] Oct, [facility] [address] [id number] [address] [place] [address] Oct, [facility] [address] [id number] [address] [place] [address] Oct, [facility] [address] [facility] [place] [id number] [address] [place] [address] Oct, [facility] [address] [id number] [address] [place] [address] Oct, [facility] [address] [facility] [place] [id number] [address] [place] [address] Oct, [facility] [address] [facility] [place] [id number] [address] [place] [address] Oct, [facility] [address] [facility] [place] [id number] [address] [place] [address] Oct, [facility] [address] [facility] [place] [id number] [address] [place] [address] September, Frequent headaches R51 [facility] [address] [facility] [place] [id number] [address] [place] [address] September, Bilateral otitis media with effusion H65.93 ; Dizziness R42 and Essential tremor G25.0 [facility] [address] [id number] [address] [place] [address] September, Chronic obstructive pulmonar y disease, unspecified COPD type J44.9 [facility] [address] [facility] [place] [id number] [address] [place] [address] September, Chronic obstructive pulmonar y disease, unspecified COPD type J44.9 [facility] [address] [facility] [place] [id number] [address] [place] [address] September, Migraine without aura and wi thout status migrainosus, not intractable G43.009 [facility] [address] [facility] [place] [id number] [address] [place] [address] September, [facility] [address] [facility] [place] [id number] [address] [place] [address] September, [facility] [address] [facility] [place] [id number] [address] [place] [address] September, [facility] [address] [place] [id number] [address] [place] [address] September, Frequent headaches R51 [facility] [address] [facility] [place] [id number] [address] [place] [address] Aug, [facility] [address] [place] [id number] [address] [place] [address] Aug, Breast mass, right N63.10 [facility] [address] [facility] [place] [id number] [address] [place] [address] Aug, Breast lump N63.0 [facility] [address] [facility] [place] [id number] [address] [place] [address] Aug, [facility] [address] [place] [id number] [address] [place] [address] Aug, Bipolar affective disorder, remission status unspecified F31.9 and Diabetes E11.9 [facility] [address] [facility] [place] [id number] [address] [place] [address] Aug, Diabetes E11.9 ; Schizoaffec tive disorder, bipolar type F25.0 ; Pharyngitis due to other organism J02.8 ; Panlobular emphysema J43.1 and Irritable bowel syndrome with both constipation and diarrhea K58.2 [facility] [address] [id number] [address] [place] [address] Aug, Abnormal mammogram R92.8 [facility] [address] [id number] [address] [place] [address] Aug, [facility] [address] [id number] [address] [place] [address] Aug, Bipolar 1 disorder, depresse d, moderate F31.32 ; Panic disorder with agoraphobia F40.01 and Chronic post-traumatic stress disorder (PTSD) F43.12 [facility] [address] [id number] [address] [place] [address] Aug, [facility] [address] [id number] [address] [place] [address] Aug, [facility] [address] [id number] [address] [place] [address] Aug, [facility] [address] [id number] [address] [place] [address] Jul, [facility] [address] [id number] [address] [place] [address] Jul, Mild persistent asthma witho ut complication J45.30 [facility] [address] [id number] [address] [place] [address] Jul, Mild persistent asthma witho ut complication J45.30 [facility] [address] [id number] [address] [place] [address] 15 Jul, 2017 Bipolar affective disorder, remission status unspecified F31.9 ; Diabetes E11.9 and Irritable bowel syndrome with constipation K58.1 [facility] [address] [id number] [address] [place] [address] Jul, [facility] [address] [facility] [place] [id number] [address] [place] [address] Jul, [place] [address] [facility] [place] [id number] [address] [place] [address] Jul, Frequent headaches R51 [place] [address] [facility] [place] [id number] [address] [place] [address] Jul, [facility] [address] [facility] [place] [id number] [address] [place] [address] Jul, [place] [address] [facility] [place] [id number] [address] [place] [address] Jul, [place] [address] [facility] [place] [id number] [address] [place] [address] Jul, Frequent headaches R51 ; Fib rocystic disease of left breast N60.12 ; Fibrocystic disease of right breast N60.11 and Diabetes E11.9 [place] [address] [place] [id number] [place] [address] Jul, [place] [address] [address] Jul, [place] [address] [facility] [place] [id number] [address] 21 Jun, 2017 Exudative tonsillitis J03.90 [place] [address] [place] [id number] [address] [place] [address] 20 Jun, 2017 [place] [address] [address] 19 Jun, 2017 [place] [address] [place] [id number] [place] [address] 15 Jun, 2017 Mild persistent asthma witho ut complication J45.30 ; Chronic obstructive pulmonary disease, unspecified COPD type J44.9 and Exudative tonsillitis J03.90 [place] [address] [place] [id number] [address] [place] [address] 13 Jun, 2017 Encounter for immunization Z 23 [place] [address] [address] Jun, [facility] [address] [facility] [place] [id number] [address] [place] [address] Jun, [facility] [address] [facility] [place] [id number] [address] [place] [address] Jun, [facility] [address] [facility] [place] [id number] [address] [place] [address] Jun, Tonsillitis J03.90 [facility] [address] [facility] [place] [id number] [address] [place] [address] Jun, [facility] [address] [facility] [place] [id number] [address] [place] [address] Jun, Acute non-recurrent maxillar y sinusitis J01.00 [facility] [address] [facility] [place] [id number] [address] [place] [address] Jun, [facility] [address] [facility] [place] [id number] [address] [place] [address] May, [facility] [address] [facility] [place] [id number] [address] [place] [address] May, [facility] [address] [facility] [place] [id number] [address] [place] [address] May, GERD (gastroesophageal reflu x disease) K21.9 [facility] [address] [facility] [place] [id number] [address] [place] [address] May, Migraine without aura and wi thout status migrainosus, not intractable G43.009 [facility] [address] [facility] [place] [id number] [address] [place] [address] May, [facility] [address] [facility] [place] [id number] [address] [place] [address] May, [facility] [address] [facility] [place] [id number] [address] [place] [address] May, Panlobular emphysema J43.1 a nd Acute non-recurrent maxillary sinusitis J01.00 [facility] [address] [id number] [address] [place] [address] May, Bipolar 1 disorder, depresse d, moderate F31.32 ; Panic disorder with agoraphobia F40.01 and Akathisia G25.71 [facility] [address] [facility] [place] [id number] [address] [place] [address] Apr, [facility] [address] [facility] [place] [id number] [address] [place] [address] Apr, [facility] [address] [facility] [place] [id number] [address] [place] [address] Apr, Acute non-recurrent maxillar y sinusitis J01.00 [facility] [address] [facility] [place] [id number] [address] [place] [address] Apr, Panlobular emphysema J43.1 [facility] [address] [facility] [place] [id number] [address] [place] [address] Apr, [facility] [address] [facility] [place] [id number] [address] [place] [address] Apr, Exudative tonsillitis J03.90 and Sore throat J02.9 [facility] [address] [facility] [place] [id number] [address] [place] [address] 17 Mar, 2017 [facility] [address] [facility] [place] [id number] [address] [place] [address] 15 Mar, 2017 Acute non-recurrent maxillar y sinusitis J01.00 [facility] [address] [facility] [place] [id number] [address] [place] [address] Mar, [facility] [address] [facility] [place] [id number] [address] [place] [address] 09 Mar, 2017 Panlobular emphysema J43.1 a nd Diabetes E11.9 [facility] [address] [facility] [place] [id number] [address] [place] [address] 06 Mar, 2017 [facility] [address] [facility] [place] [id number] [address] [place] [address] 24 Feb, 2017 Wheezing R06.2 and Acute rec urrent pansinusitis J01.41 [facility] [address] [facility] [place] [id number] [address] [place] [address] Feb, [facility] [address] [facility] [place] [id number] [address] [place] [address] Feb, Acute non-recurrent maxillar y sinusitis J01.00 [facility] [address] [facility] [place] [id number] [address] [place] [address] 16 Feb, 2017 Chronic obstructive pulmonar y disease, unspecified J44.9 [place] [address] [place] [id number] [address] [place] [address] Feb, Hypoxemia R09.02 and Chronic obstructive pulmonary disease, unspecified J44.9 [place] [address] [address] 28 Jan, 2017 Bipolar 1 disorder, depresse d, moderate F31.32 ; Panic disorder with agoraphobia F40.01 ; Chronic post-traumatic stress disorder (PTSD) F43.12 ; Diabetes E11.9 and Moderate persistent asthma without complication J45.40 [facility] [address] [place] [id number] [address] [place] [address] 22 Jan, 2017 [facility] [address] [place] [id number] [address] [place] [address] 19 Jan, 2017 Acute non-recurrent maxillar y sinusitis J01.00 [facility] [address] [facility] [place] [id number] [address] [place] [address] 18 Jan, 2017 [facility] [address] [place] [id number] [address] [place] [address] 18 Jan, 2017 [place] [address] [place] [id number] [address] [place] [address] 12 Jan, 2017 Moderate persistent asthma w [facility] complication J45.40 and Hypoxemia R09.02 [facility] [address] [id number] [address] [place] [id number] Jan, Moderate persistent asthma w [facility] complication J45.40 and Hypoxemia R09.02 [facility] [address] [id number] [address] [place] [phone] Jan, [facility] [address] [facility] [place] [id number] [address] [place] [phone] Dec, Acute non-recurrent maxillar y sinusitis J01.00 [facility] [address] [id number] [address] [place] [phone] Dec, Chronic obstructive pulmonar y disease, unspecified J44.9 [facility] [address] [id number] [address] [place] [phone] Dec, [facility] [address] [facility] [place] [id number] [address] [place] [phone] Dec, [facility] and Other chronic pain G89.29 [facility] [address] [id number] [address] [place] [id number] Nov, [facility] [address] [id number] [address] [place] [phone] Nov, Acute non-recurrent maxillar y sinusitis J01.00 [facility] [address] [id number] [address] [place] [id number] Nov, [facility] [address] [facility] [place] [id number] [address] [place] [phone] Nov, [facility] [address] [facility] [place] [id number] [address] [place] [id number] Oct, [facility] [address] [facility] [place] [id number] [address] [place] [phone] Oct, Bipolar 1 disorder, depresse d, partial remission F31.75 ; Panic disorder with agoraphobia F40.01 and Chronic post-traumatic stress disorder (PTSD) F43.12 [place] [address] [facility] [place] [id number] [address] [place] [phone] Oct, Acute non-recurrent maxillar y sinusitis J01.00 [facility] [address] [facility] [place] [id number] [address] [place] [phone] Oct, [facility] [address] [facility] [place] [id number] [address] [place] [phone] Oct, Diabetes E11.9 [facility] [address] [facility] [place] [id number] [address] [place] [id number] September, Diabetes E11.9 [facility] [address] [facility] [place] [id number] [address] [place] [phone] September, Diabetes E11.9 and Sinus tac hycardia R00.0 [place] [address] [facility] [place] [id number] [address] [place] [id number] September, [facility] [address] [id number] [address] [place] [address] September, [facility] [address] [id number] [address] [place] [address] Aug, Diabetes E11.9 and Lumbago w ith sciatica, right side M54.41 [facility] [address] [id number] [address] [place] [address] Aug, [facility] [address] [id number] [address] [place] [address] Jul, Bipolar 1 disorder, depresse d, moderate F31.32 ; Panic disorder with agoraphobia F40.01 and Chronic post-traumatic stress disorder (PTSD) F43.12 [facility] [address] [facility] [place] [id number] [address] [place] [address] Jul, Sore throat J02.9 [facility] [address] [facility] [place] [id number] [address] [place] [phone] 16 Jul, 2016 [facility] [address] [id number] [address] [place] [address] Jul, [facility] [address] [facility] [place] [id number] [address] [place] [phone] Jul, [facility] [address] [facility] [place] [id number] [address] [place] [address] Jul, [facility] [address] [facility] [place] [id number] [address] [place] [address] Jul, Sore throat J02.9 and Pharyn gitis, unspecified etiology J02.9 [facility] [address] [id number] [address] [place] [address] Jun, [facility] [address] [facility] [place] [id number] [address] [place] [address] Jun, Diabetes E11.9 [facility] [address] [facility] [place] [id number] [address] [place] [address] Jun, [facility] [address] [facility] [place] [id number] [address] [place] [address] Jun, [facility] [address] [facility] [place] [id number] [address] [place] [address] Jun, [facility] [address] [facility] [place] [id number] [address] [place] [address] Jun, [facility] [address] [facility] [place] [id number] [address] [place] [address] Jun, [facility] [address] [facility] [place] [id number] [address] [place] [address] Jun, [facility] [address] [facility] [place] [id number] [address] [place] [address] Jun, [facility] [address] [facility] [place] [id number] [address] [place] [address] Jun, [facility] [address] [facility] [place] [id number] [address] [place] [address] May, Diabetes E11.9 ; Other chron ic pain G89.29 ; Acute recurrent maxillary sinusitis J01.01 ; Bipolar I disorder with depression F31.9 and Anxiety disorder, unspecified F41.9 [place] [address] [id number] [address] [place] [address] May, [place] [address] [id number] [address] [place] [address] May, Diabetes E11.9 ; Bipolar I d isorder with depression F31.9 ; Anxiety disorder, unspecified F41.9 ; Other chronic pain G89.29 and Acute recurrent maxillary sinusitis J01.01 [place] [address] [id number] [address] [place] [address] May, [place] [address] [id number] [address] [place] [address] May, Attention deficit hyperactiv ity disorder (ADHD), predominantly inattentive type F90.0 [place] [address] [facility] [place] [id number] [address] [place] [address] May, [place] [address] [facility] [place] [id number] [address] [place] [address] Apr, Attention deficit hyperactiv ity disorder (ADHD), predominantly inattentive type F90.0 and Non-seasonal allergic rhinitis due to other allergic trigger J30.89 [place] [address] [facility] [place] [id number] [address] [place] [address] Apr, Bipolar 1 disorder, depresse d, moderate F31.32 ; Panic disorder with agoraphobia F40.01 and Chronic post-traumatic stress disorder (PTSD) F43.12 [place] [address] [facility] [place] [id number] [address] [place] [address] Apr, Dental examination Z01.20 [place] [address] [facility] [place] [id number] [address] [place] [address] Mar, [place] [address] [facility] [place] [id number] [address] [place] [address] Mar, [place] [id number] [id number] [address] [place] [address] Mar, Bipolar I disorder with depr ession F31.9 and Anxiety disorder, unspecified F41.9 [facility] [address] [id number] [address] [place] [address] 08 Mar, 2016 Panic disorder with agorapho syd F40.01 ; Bipolar 1 disorder, depressed, moderate F31.32 and Chronic post-traumatic stress disorder (PTSD) F43.12 [facility] [address] [id number] [address] [place] [address] Mar, [facility] [address] [id number] [address] [place] [address] 02 Mar, 2016 Dental caries K02.9 [facility] [address] [id number] [address] [place] [address] 24 Feb, 2016 Lumbago with sciatica, left side M54.42 ; Lumbago with sciatica, right side M54.41 and Other chronic pain G89.29 [facility] [address] [id number] [address] [place] [address] Feb, [facility] [address] [id number] [address] [place] [address] 14 Feb, 2016 [facility] [address] [id number] [address] [place] [address] 13 Feb, 2016 Bipolar I disorder with depr ession F31.9 ; PTSD (post-traumatic stress disorder) F43.10 and Mood disorder F39 [facility] [address] [id number] [address] [place] [address] 13 Feb, 2016 [facility] [address] [id number] [address] [place] [address] 11 Feb, 2016 Dental examination Z01.20 [facility] [address] [id number] [address] [place] [address] 07 Feb, 2016 [facility] [address] [address] Feb, Acute bronchitis, unspecifie d organism J20.9 [place] [address] [address] Jan, Mood disorder F39 ; Migraine without aura and without status migrainosus, not intractable G43.009 ; Irritable bowel syndrome, unspecified type K58.9 ; Diabetes E11.9 and Encounter for immunization Z23 [place] [address] [address] Jan, [place] [address] [address] Jan, [place] [address] [address] Jan, [place] [address] [address] Jan, [place] [address] [address] Jan, [place] [address] [address] Dec, Bipolar I disorder with depr ession F31.9 ; PTSD (post-traumatic stress disorder) F43.10 and Panic disorder with agoraphobia F40.01 [place] [address] [address] Dec, Chronic obstructive pulmonar y disease, unspecified COPD type J44.9 ; Tremor R25.1 and Anxiety F41.9 [place] [address] [address] Dec, [place] [address] [phone] Nov, Tremors of nervous system R2 5.1 and Cramping of feet R25.2 [place] [address] [address] Nov, [facility] [address] [facility] [place] [id number] [address] [place] [address] Nov, [facility] [address] [id number] [address] [place] [address] Oct, Chronic obstructive pulmonar y disease, unspecified J44.9 [facility] [address] [facility] [place] [id number] [address] [place] [address] Oct, [facility] [address] [id number] [address] [place] [address] Oct, Tremor R25.1 [place] [address] [facility] [place] [id number] [address] [place] [address] Oct, Bipolar I disorder with depr ession F31.9 ; Diabetes E11.9 ; PTSD (post-traumatic stress disorder) F43.10 and Panic disorder with agoraphobia F40.01 [place] [id number] [facility] [place] [id number] [address] [place] [address] Oct, Mood disorder F39 [place] [id number] [facility] [place] [id number] [address] [place] [address] September, [facility] [address] [facility] [place] [id number] [address] [place] [address] September, Diabetes E11.9 ; Bipolar I d isorder with depression F31.9 ; PTSD (post-traumatic stress disorder) F43.10 and Panic disorder with agoraphobia F40.01 [facility] [address] [id number] [address] [place] [address] September, Mood disorder F39 ; Schizoaf fective disorder, unspecified type F25.9 ; Arthritis M19.90 ; Tremor R25.1 ; Acute non-recurrent frontal sinusitis J01.10 and Blood in stool K92.1 [facility] [address] [facility] [place] [id number] [address] [place] [address] September, [facility] [address] [id number] [address] [place] [address] September, Chronic obstructive pulmonar y disease, unspecified J44.9 [facility] [address] [id number] [address] [place] [address] September, Diabetes E11.9 [facility] [address] [id number] [address] [place] [address] Aug, Other bipolar disorder F31.8 9 and Anxiety disorder, unspecified F41.9 [facility] [address] [id number] [address] [place] [address] Aug, [facility] [address] [id number] [address] [place] [address] Aug, Diabetes E11.9 [facility] [address] [id number] [address] [place] [address] 18 Aug, 2015 [facility] [address] [id number] [address] [place] [address] 14 Aug, 2015 Diabetes E11.9 ; Fatigue R53 .83 and Dizziness R42 [facility] [address] [id number] [address] [place] [address] Aug, Other bipolar disorder F31.8 9 [facility] [address] [id number] [address] [place] [address] Aug, Generalized anxiety disorder F41.1 [facility] [address] [id number] [address] [place] [address] 07 Aug, 2015 Other bipolar disorder F31.8 9 and Anxiety disorder, unspecified F41.9 [facility] [address] [id number] [address] [place] [address] Aug, [facility] [address] [id number] [address] [place] [address] Jul, [facility] [address] [id number] [address] [place] [address] Jul, [facility] [address] [facility] [place] [id number] [address] [place] [address] Jul, Bronchitis J40 [facility] [address] [facility] [place] [id number] [address] [place] [address] Jul, Anxiety disorder F41.9 [facility] [address] [facility] [place] [id number] [address] [place] [address] Jul, Other bipolar disorder F31.8 9 and Anxiety disorder, unspecified F41.9 [facility] [address] [id number] [address] [place] [address] Jul, Other bipolar disorder F31.8 9 and Fibromyalgia M79.7 [facility] [address] [place] [id number] [address] [place] [address] Jul, [facility] [id number] [place] [address] Jul, [facility] [id number] [place] [address] Jul, [facility] [address] [id number] [address] [place] [address] Jul, Other bipolar disorder F31.8 9 and Anxiety disorder, unspecified F41.9 [facility] [address] [id number] [address] [place] [address] Jun, GERD (gastroesophageal reflu x disease) K21.9 [facility] [address] [facility] [place] [id number] [address] [place] [address] Jun, [facility] [address] [id number] [address] [place] [address] May, [facility] [address] [id number] [address] [place] [address] May, Diabetes E11.9 ; Back pain M 54.9 ; GERD (gastroesophageal reflux disease) K21.9 ; Hypertension I10 and Peripheral neuropathy G62.9 [facility] [address] [id number] [address] [place] [address] Mar, [facility] [address] [id number] [address] [place] [address] Mar, [facility] [address] [id number] [address] [place] [address] Mar, Acute sinusitis J01.90 and O titis media, left H66.92 [facility] [address] [id number] [address] [place] [address] Feb, [facility] [address] [id number] [address] [place] [address] Feb, [facility] [address] [id number] [address] [place] [address] Feb, [facility] [address] [facility] [place] [id number] [address] [place] [address] Feb, [facility] [address] [id number] [address] [place] [address] Jan, [facility] [address] [id number] [address] [place] [address] Jan, Diabetes 250.00 and Back higinio n 724.5 [facility] [address] [id number] [address] [place] [address] Jan, [facility] [address] [id number] [address] [place] [address] Dec, Diabetes 250.00 ; Benign ess ential hypertension 401.1 and Allergic rhinitis 477.9 [facility] [address] [id number] [address] [place] [address] Dec, [facility] [address] [id number] [address] [place] [address] Dec, [facility] [address] [facility] [place] [id number] [address] [place] [address] Dec, Psychosis 298.9 [facility] [address] [id number] [address] [place] [address] Dec, Medication side effect 995.2 0 and Generalized anxiety disorder 300.02 [facility] [address] [facility] [place] [id number] [address] [place] [address] Dec, Acquired cognitive dysfuncti on 294.9 [facility] [address] [facility] [place] [id number] [address] [place] [address] Dec, [facility] [address] [facility] [place] [id number] [address] [place] [address] Dec, Unspecified myalgia and myos itis 729.1 and Generalized anxiety disorder 300.02 [facility] [address] [facility] [place] [id number] [address] [place] [address] Nov, [facility] [address] [facility] [place] [id number] [address] [place] [address] Nov, [facility] [address] [facility] [place] [id number] [address] [place] [address] Nov, [facility] [address] [facility] [place] [id number] [address] [place] [address] Nov, Upper respiratory infection 465.9 and Chronic airway obstruction, not elsewhere classified 496 [facility] [address] [facility] [place] [id number] [address] [place] [address] Nov, Hyponatremia 276.1 [facility] [address] [facility] [place] [id number] [address] [place] [address] Oct, [facility] [address] [facility] [place] [id number] [address] [place] [address] Oct, [facility] [address] [id number] [address] [place] [address] Oct, [facility] [address] [facility] [place] [id number] [address] [place] [address] Oct, [facility] [address] [facility] [place] [id number] [address] [place] [address] Oct, Hyponatremia 276.1 [facility] [address] [id number] [address] [place] [address] Oct, [facility] [address] [id number] [address] [place] [address] Oct, [facility] [address] [id number] [address] [place] [address] Oct, Generalized anxiety disorder 300.02 [facility] [address] [id number] [address] [place] [address] Oct, Generalized anxiety disorder 300.02 and Diabetes 250.00 [facility] [address] [id number] [address] [place] [address] Aug, [facility] [address] [id number] [address] [place] [address] Aug, [facility] [address] [id number] [address] [place] [address] Jul, [facility] [address] [id number] [address] [place] [address] Jul, [facility] [address] [id number] [address] [place] [address] Jun, [facility] [address] [id number] [address] [place] [address] Jun, [facility] [address] [id number] [address] [place] [address] Jun, [facility] [address] [id number] [address] [place] [address] Jun, [facility] [address] [id number] [address] [place] [address] Jun, [facility] [address] [id number] [address] [place] [address] May, [facility] [address] [id number] [address] [place] [address] May, [facility] [address] [id number] [address] [place] [address], [place] [address] Apr, [facility] [address] [id number] [address] [place] [address], [place] [address] Apr, [facility] [address] [id number] [address] [place] [address], [place] [address] Apr, [facility] [address] [id number] [address] [place] [address], [place] [address] Apr, [facility] [address] [id number] [address] [place] [address], [place] [address] Apr, [facility] [address] [id number] [address] [place] [address], [place] [address] Apr, [facility] [address] [id number] [address] [place] [address], [place] [address] Apr, [facility] [address] [id number] [address] [place] [address], [place] [address] Apr, [facility] [address] [id number] [address] [place] [address], [place] [address] Feb, [facility] [address] [id number] [address] [place] [address], [place] [address] Feb, [facility] [address] [id number] [address] [place] [address], [place] [address] Jan, [facility] [address] [id number] [address] [place] [address] Jan, [facility] [address] [id number] [address] [place] [address], [place] [address] Dec, [facility] [address] [id number] [address] [place] [address], [place] [address] Dec, [facility] [address] [id number] [address] [place] [address], [place] [address] Dec, [facility] [address] [id number] [address] [place] [address], [place] [address] Nov, [facility] [address] [id number] [address] [place] [address], [place] [address] Nov, [facility] [address] [id number] [address] [place] [address], [place] [address] Nov, [facility] [address] [id number] [address] [place] [address], [place] [address] Oct, [facility] [address] [id number] [address] [place] [address], [place] [address] Oct, [facility] [address] [id number] [address] [place] [address], [place] [address] Oct, [facility] [address] [id number] [address] [place] [address], [place] [address] September, [facility] [address] [id number] [address] [place] [address], [place] [address] September, [facility] [address] [id number] [address] [place] [address], [place] [address] September, [facility] [address] [id number] [address] [place] [address], [place] [address] Aug, [facility] [address] [id number] [address] [place] [address], [place] [address] Aug, [facility] [address] [id number] [address] [place] [address], [place] [address] Aug, [facility] [address] [id number] [address] [place] [address], [place] [address] 16 Aug, 2011 [facility] [address] [id number] [address] [place] [address], [place] [address] Jul, [facility] [address] [id number] [address] [place] [address], [place] [address] Jun, [facility] [address] [id number] [address] [place] [address], [place] [address] 14 Jun, 2011 [facility] [address] [id number] [address] [place] [address], [place] [address] 13 Jun, 2011 [facility] [address] [id number] [address] [place] [address], [place] [address] Jun, [facility] [address] [id number] [address] [place] [address], [place] [address] Jun, [facility] [address] [id number] [address] [place] [address], [place] [address] May, [facility] [address] [id number] [address] [place] [address], [place] [address] May, [facility] [address] [id number] [address] [place] [address], [place] [address] May, [facility] [address] [id number] [address] [place] [address], [place] [address] May, [facility] [address] [id number] [address] [place] [address] [id number] Apr, [facility] [address] [id number] [address] [place] [address], [place] [id number] Apr, [facility] [address] [id number] [address] [place] [id number] Apr, [facility] [address] [id number] [address] [place] [phone] Mar, [facility] [address] [id number] [address] [place] [id number] Mar, [facility] [address] [id number] [address] [place] [address], [place] [id number] Mar, [facility] [address] [id number] [address] [place] [id number] 13 Feb, 2011 [facility] [address] [id number] [address] [place] [id number] 13 Feb, 2011 [facility] [address] [id number] [address] [place] [phone] 13 Feb, 2011 [facility] [address] [id number] [address] [place] [phone] 11 Nov, 2010 [facility] [address] [id number] [address] [place] [phone] 16 Sep, 2010 [facility] [address] [id number] [address] [place] [phone] Aug, [facility] [address] [id number] [address] [place] [id number] 14 Jul, 2010 [facility] [address] [id number] [address] [place] [phone] May, [facility] [address] [id number] [address] [place] [id number] Apr, [facility] [address] [id number] [address] [place] [phone] Apr, [facility] [address] [id number] [address] [place] [phone] Apr, [facility] [address] [id number] [address] [place] [id number] Apr, [facility] [address] [id number] [address] [place] [id number] Apr, IMMUNIZATIONS No Known Immunizations SOCIAL HISTORY Never Assessed REASON FOR VISIT medication questions PLAN OF CARE VITAL SIGNS MEDICATIONS Unknown [...]
--- OUTSIDE RECORDS SUMMARY | 2019-07-17 10:55 | XMS REPORT ---
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 Vice President [employer] Sales Name Role Phone WHIT GANDHI Unavailable PROBLEMS Type Condition ICD9-CM Code TUH20-XJ Code Onset Dates Condition S tatus SNOMED Code Problem Diabetes E11.9 Active 45871460 Problem GERD (gastroesophageal reflux disease) K21.9 Active 363411497 Problem Anxiety disorder, unspecified F41.9 Active 775761372 Problem Hypertension I10 Active 8144824 3 Problem Other bipolar disorder F31.89 Active 57008919 Problem Fibromyalgia M79.7 Active 2441787 7 Problem Panic disorder with agoraphobia F40.01 Active 10886030 Problem Chronic obstructive pulmonary disease, unspecified J44.9 Active 49164219 Problem Lumbago with sciatica, left side M54.42 Active 152174181 Problem Migraine without aura and without status migrain osus, not intractable G43.009 Active 940268723 Problem Lumbago with sciatica, right side M54.41 Active 075465554 Problem Fibrocystic disease of right breast N60.11 Active 30288008 Problem Other chronic pain G89.29 Active 8 1374164 Problem Fibrocystic disease of left breast N60.12 Active 95710738 Problem Irritable bowel syndrome with constipation K58.1 Active 959997012 Problem Arthritis M19.90 Active 8555953 Problem Abnormal mammogram of right breast R92.8 Active 269850571 Problem Daytime somnolence R40.0 Active 1 66840766143 Problem Bipolar affective disorder, remission status unspecified F31.9 Active 87062899 Problem Chronic post-traumatic stress disorder (PTSD) F43. 12 Active 317517136 Problem Bipolar 1 disorder, depressed, moderate F31.32 Active 20663351 Problem Schizoaffective disorder, bipolar type F25.0 Active 14392379 Problem Irritable bowel syndrome with both constipation and diarrh ea K58.2 Active 94183471 Problem Slow transit constipation K59.01 Acti ve 27951451 Problem Essential tremor G25.0 Active 609 110349 Problem Acute non-recurrent maxillary sinusitis J01.00 Active 82264885 Problem Back pain M54.9 Active 977223078 Problem Bipolar 1 disorder, depressed, partial remission F 31.75 Active 31378831 Problem Attention deficit hyperactiv ity disorder (ADHD), predominantly inattentive type F90.0 Active 11372111 Problem Bipolar I disorder with depression F31.9 Active 75019691 Problem Panlobular emphysema J43.1 Active 2115167 Problem Akathisia G25.71 Active 252654437 Problem Mild persistent asthma without complication J45.30 Active 482532809 Problem Moderate persistent asthma without complication J4 5.40 Active 939510281 ALLERGIES No Information ENCOUNTERS Encounter Location Date Diagnosis [place] [address] [address] Mar, [place] [address] [address] Feb, [facility] [address] [address] 04 Feb, 2018 Daytime somnolence R40.0 [place] [address] [address] Feb, [facility] [address] [address] Jan, [facility] [address] [address] Jan, [facility] [address] [address] Jan, Chronic obstructive pulmonar y disease, unspecified J44.9 and Anxiety disorder, unspecified F41.9 [facility] [address] [address] Jan, Hypertension I10 ; Fibromyal medhat M79.7 and Lumbago with sciatica, left side M54.42 [facility] [address] [place] [id number] [address] [place] [address] 26 Jan, 2018 [facility] [address] [id number] [address] [place] [address] Jan, Cerebrovascular accident (CV A) due to occlusion of right cerebellar artery I63.541 [facility] [address] [id number] [address] [place] [id number] 19 Jan, 2018 [facility] [address] [id number] [address] [place] [address] 13 Jan, 2018 Arthritis M19.90 [facility] [address] [id number] [address] [place] [address] 07 Jan, 2018 [place] [address] [address] [facility] [id number] [address] [place] [id number] 04 Jan, 2018 Abnormal mammogram of right breast R92.8 [place] [address] [address] [place] [id number] [address] [place] [address] Dec, Daytime somnolence R40.0 and Right otitis media with effusion H65.91 [place] [address] [id number] [address] [place] [address] Dec, [place] [address] [address] [facility] [id number] [address] [place] [address] Dec, Cerebrovascular accident (CV A) due to occlusion of right cerebellar artery I63.541 [facility] [address] [id number] [address] [place] [address] Dec, [facility] [address] [facility] [id number] [address] [place] [address] Dec, [place] [address] [address] [facility] [id number] [address] [place] [address] Nov, Bipolar 1 disorder, depresse d, partial remission F31.75 and Panic disorder with agoraphobia F40.01 [place] [address] [address] [place] [id number] [address] [place] [address] Nov, Panlobular emphysema J43.1 [facility] [address] [id number] [address] [place] [address] Nov, Cerebrovascular accident (CV A) due to occlusion of right cerebellar artery I63.541 and Acute non-recurrent maxillary sinusitis J01.00 [facility] [address] [id number] [address] [place] [address] Nov, Panlobular emphysema J43.1 [facility] [address] [id number] [address] [place] [address] Nov, [facility] [address] [id number] [address] [place] [address] Nov, [facility] [address] [id number] [address] [place] [id number] Nov, [facility] [address] [id number] [address] [place] [address] Nov, [facility] [address] [id number] [address] [place] [address] Nov, [facility] [address] [id number] [address] [place] [address] Nov, [facility] [address] [id number] [address] [place] [address] Nov, [facility] [address] [id number] [address] [place] [address] Nov, Mild persistent asthma witho ut complication J45.30 and Irritable bowel syndrome with both constipation and diarrhea K58.2 [facility] [address] [id number] [address] [place] [address] Nov, [facility] [address] [id number] [address] [place] [id number] Oct, [facility] [address] [id number] [address] [place] [address] Oct, [facility] [address] [id number] [address] [place] [address] Oct, Type 2 diabetes mellitus wit h diabetic neuropathy, 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 ; Diabetes E11.9 ; Slow transit constipation K59.01 ; Edema of both legs R60.0 and Dysfunction of right eustachian tube H69.81 [facility] [address] [id number] [address] [place] [address] Oct, Frequent headaches R51 [facility] [address] [id number] [address] [place] [id number] Oct, [facility] [address] [id number] [address] [place] [address] Oct, [facility] [address] [id number] [address] [place] [address] Oct, [facility] [address] [facility] [id number] [address] [place] [id number] Oct, [facility] [address] [id number] [address] [place] [id number] Oct, [facility] [address] [facility] [id number] [address] [place] [address] Oct, [facility] [address] [facility] [id number] [address] [place] [id number] Oct, [facility] [address] [facility] [id number] [address] [place] [address] Oct, [facility] [address] [facility] [id number] [address] [place] [address] September, Frequent headaches R51 [facility] [address] [facility] [id number] [address] [place] [address] September, Bilateral otitis media with effusion H65.93 ; Dizziness R42 and Essential tremor G25.0 [facility] [address] [id number] [address] [place] [address] September, Chronic obstructive pulmonar y disease, unspecified COPD type J44.9 [facility] [address] [facility] [id number] [address] [place] [id number] September, Chronic obstructive pulmonar y disease, unspecified COPD type J44.9 [facility] [address] [facility] [id number] [address] [place] [address] September, Migraine without aura and wi thout status migrainosus, not intractable G43.009 [facility] [address] [facility] [id number] [address] [place] [id number] September, [facility] [address] [facility] [id number] [address] [place] [id number] September, [facility] [address] [facility] [id number] [address] [place] [address] September, [facility] [address] [place] [id number] [address] [place] [phone] September, Frequent headaches R51 [facility] [address] [facility] [id number] [address] [place] [address] Aug, [facility] [address] [place] [id number] [address] [place] [address] Aug, Breast mass, right N63.10 [facility] [address] [facility] [id number] [address] [place] [address] Aug, Breast lump N63.0 [facility] [address] [facility] [id number] [address] [place] [id number] Aug, [facility] [address] [place] [id number] [address] [place] [id number] Aug, Bipolar affective disorder, remission status unspecified F31.9 and Diabetes E11.9 [facility] [address] [facility] [id number] [address] [place] [id number] Aug, Diabetes E11.9 ; Schizoaffec tive disorder, bipolar type F25.0 ; Pharyngitis due to other organism J02.8 ; Panlobular emphysema J43.1 and Irritable bowel syndrome with both constipation and diarrhea K58.2 [facility] [address] [id number] [address] [place] [id number] Aug, Abnormal mammogram R92.8 [facility] [address] [id number] [address] [place] [id number] Aug, [facility] [address] [id number] [address] [place] [id number] Aug, Bipolar 1 disorder, depresse d, moderate F31.32 ; Panic disorder with agoraphobia F40.01 and Chronic post-traumatic stress disorder (PTSD) F43.12 [facility] [address] [id number] [address] [place] [id number] Aug, [facility] [address] [id number] [address] [place] [id number] Aug, [facility] [address] [id number] [address] [place] [id number] Aug, [facility] [address] [id number] [address] [place] [id number] Jul, [facility] [address] [id number] [address] [place] [address] Jul, Mild persistent asthma witho ut complication J45.30 [facility] [address] [id number] [address] [place] [address] Jul, Mild persistent asthma witho ut complication J45.30 [facility] [address] [id number] [address] [place] [id number] 15 Jul, 2017 Bipolar affective disorder, remission status unspecified F31.9 ; Diabetes E11.9 and Irritable bowel syndrome with constipation K58.1 [facility] [address] [id number] [address] [place] [id number] Jul, [facility] [address] [facility] [id number] [address] [place] [phone] Jul, [place] [address] [address] [facility] [id number] [address] [place] [id number] Jul, Frequent headaches R51 [place] [address] [address] [facility] [id number] [address] [place] [id number] Jul, [facility] [address] [facility] [id number] [address] [place] [id number] Jul, [place] [address] [address] [facility] [id number] [address] [place] [id number] Jul, [place] [address] [address] [facility] [id number] [address] [place] [address] Jul, Frequent headaches R51 ; Fib rocystic disease of left breast N60.12 ; Fibrocystic disease of right breast N60.11 and Diabetes E11.9 [place] [address] [place] [id number] [place] [address] Jul, [place] [address] [address] Jul, [place] [address] [address] [facility] [id number] [address] 21 Jun, 2017 Exudative tonsillitis J03.90 [place] [address] [address] [place] [id number] [address] [place] [id number] 20 Jun, 2017 [place] [address] [address] 19 Jun, 2017 [place] [address] [place] [id number] [place] [address] 15 Jun, 2017 Mild persistent asthma witho ut complication J45.30 ; Chronic obstructive pulmonary disease, unspecified COPD type J44.9 and Exudative tonsillitis J03.90 [place] [address] [place] [id number] [address] [place] [id number] 13 Jun, 2017 Encounter for immunization Z 23 [place] [address] [address] Jun, [facility] [address] [facility] [id number] [address] [place] [id number] Jun, [facility] [address] [facility] [id number] [address] [place] [id number] Jun, [facility] [address] [facility] [id number] [address] [place] [address] Jun, Tonsillitis J03.90 [facility] [address] [facility] [id number] [address] [place] [address] Jun, [facility] [address] [facility] [id number] [address] [place] [id number] Jun, Acute non-recurrent maxillar y sinusitis J01.00 [facility] [address] [facility] [id number] [address] [place] [phone] Jun, [facility] [address] [facility] [id number] [address] [place] [address] May, [facility] [address] [facility] [id number] [address] [place] [id number] May, [facility] [address] [facility] [id number] [address] [place] [id number] May, GERD (gastroesophageal reflu x disease) K21.9 [facility] [address] [facility] [id number] [address] [place] [address] May, Migraine without aura and wi thout status migrainosus, not intractable G43.009 [facility] [address] [facility] [id number] [address] [place] [id number] May, [facility] [address] [facility] [id number] [address] [place] [address] May, [facility] [address] [facility] [id number] [address] [place] [address] May, Panlobular emphysema J43.1 a nd Acute non-recurrent maxillary sinusitis J01.00 [facility] [address] [id number] [address] [place] [address] May, Bipolar 1 disorder, depresse d, moderate F31.32 ; Panic disorder with agoraphobia F40.01 and Akathisia G25.71 [facility] [address] [facility] [id number] [address] [place] [address] Apr, [facility] [address] [facility] [id number] [address] [place] [address] Apr, [facility] [address] [facility] [id number] [address] [place] [address] Apr, Acute non-recurrent maxillar y sinusitis J01.00 [facility] [address] [facility] [id number] [address] [place] [address] Apr, Panlobular emphysema J43.1 [facility] [address] [facility] [id number] [address] [place] [address] Apr, [facility] [address] [facility] [id number] [address] [place] [address] Apr, Exudative tonsillitis J03.90 and Sore throat J02.9 [facility] [address] [facility] [id number] [address] [place] [address] 17 Mar, 2017 [facility] [address] [facility] [id number] [address] [place] [id number] 15 Mar, 2017 Acute non-recurrent maxillar y sinusitis J01.00 [facility] [address] [facility] [id number] [address] [place] [address] Mar, [facility] [address] [facility] [id number] [address] [place] [id number] 09 Mar, 2017 Panlobular emphysema J43.1 a nd Diabetes E11.9 [facility] [address] [facility] [id number] [address] [place] [id number] 06 Mar, 2017 [facility] [address] [facility] [id number] [address] [place] [address] 24 Feb, 2017 Wheezing R06.2 and Acute rec urrent pansinusitis J01.41 [facility] [address] [facility] [id number] [address] [place] [id number] Feb, [facility] [address] [facility] [id number] [address] [place] [address] Feb, Acute non-recurrent maxillar y sinusitis J01.00 [facility] [address] [facility] [id number] [address] [place] [id number] 16 Feb, 2017 Chronic obstructive pulmonar y disease, unspecified J44.9 [place] [address] [address] [place] [id number] [address] [place] [address] Feb, Hypoxemia R09.02 and Chronic obstructive pulmonary disease, unspecified J44.9 [place] [address] [address] 28 Jan, 2017 Bipolar 1 disorder, depresse d, moderate F31.32 ; Panic disorder with agoraphobia F40.01 ; Chronic post-traumatic stress disorder (PTSD) F43.12 ; Diabetes E11.9 and Moderate persistent asthma without complication J45.40 [facility] [address] [place] [id number] [address] [place] [address] 22 Jan, 2017 [facility] [address] [place] [id number] [address] [place] [address] 19 Jan, 2017 Acute non-recurrent maxillar y sinusitis J01.00 [facility] [address] [facility] [id number] [address] [place] [id number] 18 Jan, 2017 [facility] [address] [place] [id number] [address] [place] [address] 18 Jan, 2017 [place] [address] [place] [id number] [address] [place] [id number] 12 Jan, 2017 Moderate persistent asthma w [facility] complication J45.40 and Hypoxemia R09.02 [facility] [address] [id number] [address] [place] [id number] Jan, Moderate persistent asthma w [facility] complication J45.40 and Hypoxemia R09.02 [facility] [address] [id number] [address] [place] [address] Jan, [facility] [address] [facility] [id number] [address] [place] [address] Dec, Acute non-recurrent maxillar y sinusitis J01.00 [facility] [address] [id number] [address] [place] [id number] Dec, Chronic obstructive pulmonar y disease, unspecified J44.9 [facility] [address] [id number] [address] [place] [id number] Dec, [facility] [address] [facility] [id number] [address] [place] [address] Dec, Mild [facility] J45.30 and Other chronic pain G89.29 [facility] [address] [id number] [address] [place] [id number] Nov, [facility] [address] [id number] [address] [place] [phone] Nov, Acute non-recurrent maxillar y sinusitis J01.00 [facility] [address] [id number] [address] [place] [id number] Nov, [facility] [address] [facility] [id number] [address] [place] [id number] Nov, [facility] [address] [facility] [id number] [address] [place] [id number] Oct, [facility] [address] [facility] [id number] [address] [place] [address] Oct, Bipolar 1 disorder, depresse d, partial remission F31.75 ; Panic disorder with agoraphobia F40.01 and Chronic post-traumatic stress disorder (PTSD) F43.12 [place] [address] [address] [facility] [id number] [address] [place] [id number] Oct, Acute non-recurrent maxillar y sinusitis J01.00 [facility] [address] [facility] [id number] [address] [place] [id number] Oct, [facility] [address] [facility] [id number] [address] [place] [id number] Oct, Diabetes E11.9 [facility] [address] [facility] [id number] [address] [place] [id number] September, Diabetes E11.9 [facility] [address] [facility] [id number] [address] [place] [address] September, Diabetes E11.9 and Sinus tac hycardia R00.0 [place] [address] [address] [facility] [id number] [address] [place] [id number] September, [facility] [address] [place] [id number] [address] [place] [id number] September, [facility] [address] [place] [id number] [address] [place] [id number] Aug, Diabetes E11.9 and Lumbago w ith sciatica, right side M54.41 [facility] [address] [place] [id number] [address] [place] [id number] Aug, [facility] [address] [place] [id number] [address] [place] [id number] Jul, Bipolar 1 disorder, depresse d, moderate F31.32 ; Panic disorder with agoraphobia F40.01 and Chronic post-traumatic stress disorder (PTSD) F43.12 [facility] [address] [facility] [id number] [address] [place] [id number] Jul, Sore throat J02.9 [facility] [address] [facility] [id number] [address] [place] [id number] 16 Jul, 2016 [facility] [address] [place] [id number] [address] [place] [id number] Jul, [facility] [address] [facility] [id number] [address] [place] [id number] Jul, [facility] [address] [facility] [id number] [address] [place] [id number] Jul, [facility] [address] [facility] [facility] [id number] [address] [place] [id number] Jul, Sore throat J02.9 and Pharyn gitis, unspecified etiology J02.9 [facility] [address] [id number] [address] [place] [id number] Jun, [facility] [address] [facility] [id number] [address] [place] [address] Jun, Diabetes E11.9 [facility] [address] [facility] [id number] [address] [place] [address] Jun, [facility] [address] [facility] [id number] [address] [place] [phone] Jun, [facility] [address] [facility] [id number] [address] [place] [phone] Jun, [facility] [address] [facility] [id number] [address] [place] [id number] Jun, [facility] [address] [facility] [id number] [address] [place] [id number] Jun, [facility] [address] [facility] [id number] [address] [place] [phone] Jun, [facility] [address] [facility] [id number] [address] [place] [address] Jun, [facility] [address] [facility] [id number] [address] [place] [address] Jun, [facility] [address] [facility] [id number] [address] [place] [address] May, Diabetes E11.9 ; Other chron ic pain G89.29 ; Acute recurrent maxillary sinusitis J01.01 ; Bipolar I disorder with depression F31.9 and Anxiety disorder, unspecified F41.9 [place] [address] [id number] [address] [place] [phone] May, [place] [address] [id number] [address] [place] [address] May, Diabetes E11.9 ; Bipolar I d isorder with depression F31.9 ; Anxiety disorder, unspecified F41.9 ; Other chronic pain G89.29 and Acute recurrent maxillary sinusitis J01.01 [place] [address] [id number] [address] [place] [address] May, [place] [address] [id number] [address] [place] [address] May, Attention deficit hyperactiv ity disorder (ADHD), predominantly inattentive type F90.0 [place] [address] [facility] [id number] [address] [place] [address] May, [place] [address] [facility] [id number] [address] [place] [id number] Apr, Attention deficit hyperactiv ity disorder (ADHD), predominantly inattentive type F90.0 and Non-seasonal allergic rhinitis due to other allergic trigger J30.89 [place] [address] [facility] [id number] [address] [place] [id number] Apr, Bipolar 1 disorder, depresse d, moderate F31.32 ; Panic disorder with agoraphobia F40.01 and Chronic post-traumatic stress disorder (PTSD) F43.12 [place] [address] [facility] [id number] [address] [place] [address] Apr, Dental examination Z01.20 [place] [address] [facility] [id number] [address] [place] [address] Mar, [place] [address] [facility] [id number] [address] [place] [address] Mar, [place] [address] [id number] [address] [place] [address] Mar, Bipolar I disorder with depr ession F31.9 and Anxiety disorder, unspecified F41.9 [facility] [address] [id number] [address] [place] [id number] 08 Mar, 2016 Panic disorder with agorapho syd F40.01 ; Bipolar 1 disorder, depressed, moderate F31.32 and Chronic post-traumatic stress disorder (PTSD) F43.12 [facility] [address] [id number] [address] [place] [id number] Mar, [facility] [address] [id number] [address] [place] [id number] 02 Mar, 2016 Dental caries K02.9 [facility] [address] [id number] [address] [place] [address] 24 Feb, 2016 Lumbago with sciatica, left side M54.42 ; Lumbago with sciatica, right side M54.41 and Other chronic pain G89.29 [facility] [address] [id number] [address] [place] [address] Feb, [facility] [address] [id number] [address] [place] [id number] 14 Feb, 2016 [facility] [address] [id number] [address] [place] [address] 13 Feb, 2016 Bipolar I disorder with depr ession F31.9 ; PTSD (post-traumatic stress disorder) F43.10 and Mood disorder F39 [facility] [address] [id number] [address] [place] [id number] 13 Feb, 2016 [facility] [address] [id number] [address] [place] [id number] 11 Feb, 2016 Dental examination Z01.20 [facility] [address] [id number] [address] [place] [id number] 07 Feb, 2016 [facility] [address] [address] Feb, Acute bronchitis, unspecifie d organism J20.9 [place] [address] [address] Jan, Mood disorder F39 ; Migraine without aura and without status migrainosus, not intractable G43.009 ; Irritable bowel syndrome, unspecified type K58.9 ; Diabetes E11.9 and Encounter for immunization Z23 [place] [address] [address] Jan, [place] [address] [address] Jan, [place] [address] [address] Jan, [place] [address] [address] Jan, [place] [address] [address] Jan, [place] [address] [address] Dec, Bipolar I disorder with depr ession F31.9 ; PTSD (post-traumatic stress disorder) F43.10 and Panic disorder with agoraphobia F40.01 [place] [address] [address] Dec, Chronic obstructive pulmonar y disease, unspecified COPD type J44.9 ; Tremor R25.1 and Anxiety F41.9 [place] [address] [address] Dec, [place] [address] [address] Nov, Tremors of nervous system R2 5.1 and Cramping of feet R25.2 [place] [address] [address] Nov, [facility] [address] [facility] [id number] [address] [place] [address] Nov, [facility] [address] [id number] [address] [place] [address] Oct, Chronic obstructive pulmonar y disease, unspecified J44.9 [facility] [address] [facility] [id number] [address] [place] [address] Oct, [facility] [address] [id number] [address] [place] [address] Oct, Tremor R25.1 [place] [address] [facility] [id number] [address] [place] [address] Oct, Bipolar I disorder with depr ession F31.9 ; Diabetes E11.9 ; PTSD (post-traumatic stress disorder) F43.10 and Panic disorder with agoraphobia F40.01 [place] [address] [facility] [id number] [address] [place] [id number] Oct, Mood disorder F39 [place] [address] [facility] [id number] [address] [place] [address] September, [facility] [address] [facility] [id number] [address] [place] [address] September, Diabetes E11.9 ; Bipolar I d isorder with depression F31.9 ; PTSD (post-traumatic stress disorder) F43.10 and Panic disorder with agoraphobia F40.01 [facility] [address] [id number] [address] [place] [address] September, Mood disorder F39 ; Schizoaf fective disorder, unspecified type F25.9 ; Arthritis M19.90 ; Tremor R25.1 ; Acute non-recurrent frontal sinusitis J01.10 and Blood in stool K92.1 [facility] [address] [facility] [id number] [address] [place] [address] September, [facility] [address] [id number] [address] [place] [address] September, Chronic obstructive pulmonar y disease, unspecified J44.9 [facility] [address] [id number] [address] [place] [address] September, Diabetes E11.9 [facility] [address] [id number] [address] [place] [id number] Aug, Other bipolar disorder F31.8 9 and Anxiety disorder, unspecified F41.9 [facility] [address] [id number] [address] [place] [id number] Aug, [facility] [address] [id number] [address] [place] [id number] Aug, Diabetes E11.9 [facility] [address] [id number] [address] [place] [address] 18 Aug, 2015 [facility] [address] [id number] [address] [place] [id number] 14 Aug, 2015 Diabetes E11.9 ; Fatigue R53 .83 and Dizziness R42 [facility] [address] [id number] [address] [place] [address] Aug, Other bipolar disorder F31.8 9 [facility] [address] [id number] [address] [place] [id number] Aug, Generalized anxiety disorder F41.1 [facility] [address] [id number] [address] [place] [id number] 07 Aug, 2015 Other bipolar disorder F31.8 9 and Anxiety disorder, unspecified F41.9 [facility] [address] [id number] [address] [place] [id number] Aug, [facility] [address] [id number] [address] [place] [id number] Jul, [facility] [address] [id number] [address] [place] [id number] Jul, [facility] [address] [facility] [id number] [address] [place] [address] Jul, Bronchitis J40 [facility] [address] [facility] [id number] [address] [place] [address] Jul, Anxiety disorder F41.9 [facility] [address] [facility] [id number] [address] [place] [address] Jul, Other bipolar disorder F31.8 9 and Anxiety disorder, unspecified F41.9 [facility] [address] [place] [id number] [address] [place] [address] Jul, Other bipolar disorder F31.8 9 and Fibromyalgia M79.7 [facility] [address] [place] [id number] [address] [place] [id number] Jul, [facility] [id number] [place] [address] Jul, [facility] [id number] [place] [address] Jul, [facility] [address] [place] [id number] [address] [place] [address] Jul, Other bipolar disorder F31.8 9 and Anxiety disorder, unspecified F41.9 [facility] [address] [place] [id number] [address] [place] [id number] Jun, GERD (gastroesophageal reflu x disease) K21.9 [facility] [address] [facility] [id number] [address] [place] [address] Jun, [facility] [address] [place] [id number] [address] [place] [id number] May, [facility] [address] [place] [id number] [address] [place] [address] May, Diabetes E11.9 ; Back pain M 54.9 ; GERD (gastroesophageal reflux disease) K21.9 ; Hypertension I10 and Peripheral neuropathy G62.9 [facility] [address] [place] [id number] [address] [place] [address] Mar, [facility] [address] [id number] [address] [place] [id number] Mar, [facility] [address] [id number] [address] [place] [id number] Mar, Acute sinusitis J01.90 and O titis media, left H66.92 [facility] [address] [id number] [address] [place] [id number] Feb, [facility] [address] [id number] [address] [place] [address] Feb, [facility] [address] [id number] [address] [place] [address] Feb, [facility] [address] [facility] [id number] [address] [place] [phone] Feb, [facility] [address] [id number] [address] [place] [address] Jan, [facility] [address] [id number] [address] [place] [address] Jan, Diabetes 250.00 and Back higinio n 724.5 [facility] [address] [id number] [address] [place] [address] Jan, [facility] [address] [id number] [address] [place] [address] Dec, Diabetes 250.00 ; Benign ess ential hypertension 401.1 and Allergic rhinitis 477.9 [facility] [address] [id number] [address] [place] [address] Dec, [facility] [address] [id number] [address] [place] [id number] Dec, [facility] [address] [facility] [id number] [address] [place] [address] Dec, Psychosis 298.9 [facility] [address] [id number] [address] [place] [id number] Dec, Medication side effect 995.2 0 and Generalized anxiety disorder 300.02 [facility] [address] [facility] [id number] [address] [place] [address] Dec, Acquired cognitive dysfuncti on 294.9 [facility] [address] [facility] [id number] [address] [place] [address] Dec, [facility] [address] [facility] [id number] [address] [place] [id number] Dec, Unspecified myalgia and myos itis 729.1 and Generalized anxiety disorder 300.02 [facility] [address] [facility] [id number] [address] [place] [address] Nov, [facility] [address] [facility] [id number] [address] [place] [id number] Nov, [facility] [address] [facility] [id number] [address] [place] [id number] Nov, [facility] [address] [facility] [id number] [address] [place] [id number] Nov, Upper respiratory infection 465.9 and Chronic airway obstruction, not elsewhere classified 496 [facility] [address] [facility] [id number] [address] [place] [id number] Nov, Hyponatremia 276.1 [facility] [address] [facility] [id number] [address] [place] [address] Oct, [facility] [address] [facility] [id number] [address] [place] [id number] Oct, [facility] [address] [id number] [address] [place] [address] Oct, [facility] [address] [facility] [id number] [address] [place] [id number] Oct, [facility] [address] [facility] [id number] [address] [place] [address] Oct, Hyponatremia 276.1 [facility] [address] [id number] [address] [place] [id number] Oct, [facility] [address] [id number] [address] [place] [id number] Oct, [facility] [address] [id number] [address] [place] [address] Oct, Generalized anxiety disorder 300.02 [facility] [address] [id number] [address] [place] [address] Oct, Generalized anxiety disorder 300.02 and Diabetes 250.00 [facility] [address] [id number] [address] [place] [id number] Aug, [facility] [address] [id number] [address] [place] [id number] Aug, [facility] [address] [id number] [address] [place] [id number] Jul, [facility] [address] [id number] [address] [place] [address] Jul, [facility] [address] [id number] [address] [place] [id number] Jun, [facility] [address] [id number] [address] [place] [id number] Jun, [facility] [address] [id number] [address] [place] [id number] Jun, [facility] [address] [id number] [address] [place] [id number] Jun, [facility] [address] [id number] [address] [place] [id number] Jun, [facility] [address] [id number] [address] [place] [id number] May, [facility] [address] [id number] [address] [place] [id number] May, [facility] [address] [id number] [address] [place] [address], [place] [address] Apr, [facility] [address] [id number] [address] [place] [address], [place] [address] Apr, [facility] [address] [id number] [address] [place] [address], [place] [id number] Apr, [facility] [address] [id number] [address] [place] [address], [place] [address] Apr, [facility] [address] [id number] [address] [place] [address], [place] [id number] Apr, [facility] [address] [id number] [address] [place] [address], [place] [address] Apr, [facility] [address] [id number] [address] [place] [address], [place] [address] Apr, [facility] [address] [id number] [address] [place] [address], [place] [address] Apr, [facility] [address] [id number] [address] [place] [address], [place] [address] Feb, [facility] [address] [id number] [address] [place] [address], [place] [id number] Feb, [facility] [address] [id number] [address] [place] [address], [place] [id number] Jan, [facility] [address] [id number] [address] [place] [id number] Jan, [facility] [address] [id number] [address] [place] [address], [place] [id number] Dec, [facility] [address] [id number] [address] [place] [address], [place] [address] Dec, [facility] [address] [id number] [address] [place] [address], [place] [address] Dec, [facility] [address] [id number] [address] [place] [address], [place] [address] Nov, [facility] [address] [id number] [address] [place] [address], [place] [address] Nov, [facility] [address] [id number] [address] [place] [address], [place] [address] Nov, [facility] [address] [id number] [address] [place] [address], [place] [address] Oct, [facility] [address] [id number] [address] [place] [address], [place] [address] Oct, [facility] [address] [id number] [address] [place] [address], [place] [address] Oct, [facility] [address] [id number] [address] [place] [address], [place] [address] September, [facility] [address] [id number] [address] [place] [address], [place] [id number] September, [facility] [address] [id number] [address] [place] [address], [place] [id number] September, [facility] [address] [id number] [address] [place] [address], [place] [address] Aug, [facility] [address] [id number] [address] [place] [address], [place] [id number] Aug, [facility] [address] [id number] [address] [place] [address], [place] [address] Aug, [facility] [address] [id number] [address] [place] [address], [place] [id number] 16 Aug, 2011 [facility] [address] [id number] [address] [place] [address], [place] [address] Jul, [facility] [address] [id number] [address] [place] [address], [place] [address] Jun, [facility] [address] [id number] [address] [place] [address], [place] [id number] 14 Jun, 2011 [facility] [address] [id number] [address] [place] [address], [place] [id number] 13 Jun, 2011 [facility] [address] [id number] [address] [place] [address], [place] [id number] Jun, [facility] [address] [id number] [address] [place] [address], [place] [id number] Jun, [facility] [address] [id number] [address] [place] [address], [place] [id number] May, [facility] [address] [id number] [address] [place] [address], [place] [id number] May, [facility] [address] [id number] [address] [place] [address], [place] [id number] May, [facility] [address] [id number] [address] [place] [address], [place] [id number] May, [facility] [address] [id number] [address] [place] [id number] Apr, [facility] [address] [id number] [address] [place] [address], [place] [id number] Apr, [facility] [address] [id number] [address] [place] [id number] Apr, [facility] [address] [id number] [address] [place] [id number] Mar, [facility] [address] [id number] [address] [place] [id number] Mar, [facility] [address] [id number] [address] [place] [address], [place] [id number] Mar, [facility] [address] [id number] [address] [place] [id number] 13 Feb, 2011 [facility] [address] [id number] [address] [place] [id number] 13 Feb, 2011 [facility] [address] [id number] [address] [place] [id number] 13 Feb, 2011 [facility] [address] [id number] [address] [place] [id number] 11 Nov, 2010 [facility] [address] [id number] [address] [place] [id number] 16 Sep, 2010 [facility] [address] [id number] [address] [place] [id number] 12 Aug, 2010 [facility] [address] [id number] [address] [place] [id number] 14 Jul, 2010 [facility] [address] [id number] [address] [place] [id number] May, [facility] [address] [id number] [address] [place] [id number] 31 Apr, 2010 [facility] [address] [id number] [address] [place] [id number] Apr, [facility] [address] [id number] [address] [place] [id number] Apr, [facility] [address] [id number] [address] [place] [id number] Apr, [facility] [address] [id number] [address] [place] [id number] Apr, IMMUNIZATIONS No Known Immunizations SOCIAL HISTORY Never Assessed REASON FOR VISIT referral for surgery PLAN OF CARE VITAL SIGNS MEDICATIONS Unknown [...]
--- OUTSIDE RECORDS SUMMARY | 2019-07-17 10:55 | XMS REPORT ---
Author Author Sujey GANDHI Organization [facility] Address [address] [place] [address] Care Team Providers Care Plug Machine Operator Name Role Phone WHIT GANDHI Unavailable PROBLEMS Type Condition ICD9-CM Code [id number] Code Onset Dates Condition S tatus SNOMED Code Problem Diabetes E11.9 Active 05050582 Problem GERD (gastroesophageal reflux disease) K21.9 Active 731044325 Problem Anxiety disorder, unspecified F41.9 Active 595573602 Problem Hypertension I10 Active 1192058 3 Problem Other bipolar disorder F31.89 Active 79885554 Problem Fibromyalgia M79.7 Active 1589710 7 Problem Panic disorder with agoraphobia F40.01 Active 44224484 Problem Chronic obstructive pulmonary disease, unspecified J44.9 Active 23021546 Problem Lumbago with sciatica, left side M54.42 Active 079865931 Problem Migraine without aura and without status migrain osus, not intractable G43.009 Active 913424176 Problem Lumbago with sciatica, right side M54.41 Active 980714058 Problem Fibrocystic disease of right breast N60.11 Active 47747486 Problem Other chronic pain G89.29 Active 8 0598098 Problem Fibrocystic disease of left breast N60.12 Active 72981907 Problem Irritable bowel syndrome with constipation K58.1 Active 675618456 Problem Arthritis M19.90 Active 9248532 Problem Abnormal mammogram of right breast R92.8 Active 173470222 Problem Daytime somnolence R40.0 Active 1 06452164606 Problem Bipolar affective disorder, remission status unspecified F31.9 Active 81984219 Problem Chronic post-traumatic stress disorder (PTSD) F43. 12 Active 084760272 Problem Bipolar 1 disorder, depressed, moderate F31.32 Active 34002715 Problem Schizoaffective disorder, bipolar type F25.0 Active 10735949 Problem Irritable bowel syndrome with both constipation and diarrh ea K58.2 Active 52398285 Problem Slow transit constipation K59.01 Acti ve 38976592 Problem Essential tremor G25.0 Active 609 179538 Problem Acute non-recurrent maxillary sinusitis J01.00 Active 28902957 Problem Back pain M54.9 Active 158137875 Problem Bipolar 1 disorder, depressed, partial remission F 31.75 Active 77205755 Problem Attention deficit hyperactiv ity disorder (ADHD), predominantly inattentive type F90.0 Active 46830913 Problem Bipolar I disorder with depression F31.9 Active 38567866 Problem Panlobular emphysema J43.1 Active 0934092 Problem Akathisia G25.71 Active 335330921 Problem Mild persistent asthma without complication J45.30 Active 478440589 Problem Moderate persistent asthma without complication J4 5.40 Active 795050524 ALLERGIES No Information ENCOUNTERS Encounter Location Date Diagnosis [place] [address] [id number] Mar, [place] [address] [address] Feb, [facility] [address] [address] 04 Feb, 2018 Daytime somnolence R40.0 [place] [address] [address] Feb, [facility] [address] [address] Jan, [facility] [address] [id number] Jan, [facility] [address] [address] Jan, Chronic obstructive pulmonar y disease, unspecified J44.9 and Anxiety disorder, unspecified F41.9 [facility] [address] [address] Jan, Hypertension I10 ; Fibromyal medhat M79.7 and Lumbago with sciatica, left side M54.42 [facility] [address] [place] [id number] [place] [id number] 26 Jan, 2018 [facility] [address] [id number] [address] [place] [id number] Jan, Cerebrovascular accident (CV A) due to occlusion of right cerebellar artery I63.541 [facility] [address] [id number] [address] [place] [id number] 19 Jan, 2018 [facility] [address] [id number] [address] [place] [id number] 13 Jan, 2018 Arthritis M19.90 [facility] [address] [id number] [address] [place] [id number] 07 Jan, 2018 [place] [address] [address] [facility] [id number] [address] [place] [id number] 04 Jan, 2018 Abnormal mammogram of right breast R92.8 [place] [address] [address] [place] [id number] [address] [place] [id number] Dec, Daytime somnolence R40.0 and Right otitis media with effusion H65.91 [place] [address] [id number] [address] [place] [id number] Dec, [place] [address] [address] [facility] [id number] [address] [place] [id number] Dec, Cerebrovascular accident (CV A) due to occlusion of right cerebellar artery I63.541 [facility] [address] [id number] [address] [place] [id number] Dec, [facility] [address] [facility] [id number] [address] [place] [id number] Dec, [place] [address] [address] [facility] [id number] [address] [place] [id number] Nov, Bipolar 1 disorder, depresse d, partial remission F31.75 and Panic disorder with agoraphobia F40.01 [place] [address] [address] [place] [id number] [address] [place] [id number] Nov, Panlobular emphysema J43.1 [facility] [address] [id number] [address] [place] [id number] Nov, Cerebrovascular accident (CV A) due to occlusion of right cerebellar artery I63.541 and Acute non-recurrent maxillary sinusitis J01.00 [facility] [address] [id number] [address] [place] [id number] Nov, Panlobular emphysema J43.1 [facility] [address] [id number] [address] [place] [id number] Nov, [facility] [address] [id number] [address] [place] [id number] Nov, [facility] [address] [id number] [address] [place] [id number] Nov, [facility] [address] [id number] [address] [place] [id number] Nov, [facility] [address] [id number] [address] [place] [id number] Nov, [facility] [address] [id number] [address] [place] [id number] Nov, [facility] [address] [id number] [address] [place] [id number] Nov, [facility] [address] [id number] [address] [place] [id number] Nov, Mild persistent asthma witho ut complication J45.30 and Irritable bowel syndrome with both constipation and diarrhea K58.2 [facility] [address] [id number] [address] [place] [id number] Nov, [facility] [address] [id number] [address] [place] [id number] Oct, [facility] [address] [id number] [address] [place] [id number] Oct, [facility] [address] [id number] [address] [place] [phone] Oct, Type 2 diabetes mellitus wit h diabetic neuropathy, unspecified whether farm management agent insulin 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 E11.40 ; Diabetes E11.9 ; Slow transit constipation K59.01 ; Edema of both legs R60.0 and Dysfunction of right eustachian tube H69.81 [facility] [address] [id number] [address] [place] [id number] Oct, Frequent headaches R51 [facility] [address] [id number] [address] [place] [id number] Oct, [facility] [address] [id number] [address] [place] [id number] Oct, [facility] [address] [id number] [address] [place] [id number] Oct, [facility] [address] [facility] [id number] [address] [place] [phone] Oct, [facility] [address] [id number] [address] [place] [phone] Oct, [facility] [address] [facility] [id number] [address] [place] [phone] Oct, [facility] [address] [facility] [id number] [address] [place] [id number] Oct, [facility] [address] [facility] [id number] [address] [place] [id number] Oct, [facility] [address] [facility] [id number] [address] [place] [phone] September, Frequent headaches R51 [facility] [address] [facility] [id number] [address] [place] [id number] September, Bilateral otitis media with effusion H65.93 ; Dizziness R42 and Essential tremor G25.0 [facility] [address] [id number] [address] [place] [phone] September, Chronic obstructive pulmonar y disease, unspecified COPD type J44.9 [facility] [address] [facility] [id number] [address] [place] [id number] September, Chronic obstructive pulmonar y disease, unspecified COPD type J44.9 [facility] [address] [facility] [id number] [address] [place] [id number] September, Migraine without aura and wi thout status migrainosus, not intractable G43.009 [facility] [address] [facility] [id number] [address] [place] [id number] September, [facility] [address] [facility] [id number] [address] [place] [phone] September, [facility] [address] [facility] [id number] [address] [place] [phone] September, [facility] [address] [place] [id number] [address] [place] [id number] September, Frequent headaches R51 [facility] [address] [facility] [id number] [address] [place] [id number] Aug, [facility] [address] [place] [id number] [address] [place] [id number] Aug, Breast mass, right N63.10 [facility] [address] [facility] [id number] [address] [place] [id number] Aug, Breast lump N63.0 [facility] [address] [facility] [id number] [address] [place] [id number] Aug, [facility] [address] [place] [id number] [address] [place] [id number] Aug, Bipolar affective disorder, remission status unspecified F31.9 and Diabetes E11.9 [facility] [address] [facility] [id number] [address] [place] [phone] Aug, Diabetes E11.9 ; Schizoaffec tive disorder, bipolar type F25.0 ; Pharyngitis due to other organism J02.8 ; Panlobular emphysema J43.1 and Irritable bowel syndrome with both constipation and diarrhea K58.2 [facility] [address] [id number] [address] [place] [id number] Aug, Abnormal mammogram R92.8 [facility] [address] [id number] [address] [place] [id number] Aug, [facility] [address] [id number] [address] [place] [id number] Aug, Bipolar 1 disorder, depresse d, moderate F31.32 ; Panic disorder with agoraphobia F40.01 and Chronic post-traumatic stress disorder (PTSD) F43.12 [facility] [address] [id number] [address] [place] [id number] Aug, [facility] [address] [id number] [address] [place] [id number] Aug, [facility] [address] [id number] [address] [place] [id number] Aug, [facility] [address] [id number] [address] [place] [id number] Jul, [facility] [address] [id number] [address] [place] [id number] Jul, Mild persistent asthma witho ut complication J45.30 [facility] [address] [id number] [address] [place] [id number] Jul, Mild persistent asthma witho ut complication J45.30 [facility] [address] [id number] [address] [place] [id number] 15 Jul, 2017 Bipolar affective disorder, remission status unspecified F31.9 ; Diabetes E11.9 and Irritable bowel syndrome with constipation K58.1 [facility] [address] [id number] [address] [place] [phone] Jul, [facility] [address] [facility] [id number] [address] [place] [id number] Jul, [place] [address] [address] [facility] [id number] [address] [place] [id number] Jul, Frequent headaches R51 [place] [address] [address] [facility] [id number] [address] [place] [id number] Jul, [facility] [address] [facility] [id number] [address] [place] [id number] Jul, [place] [address] [facility] [id number] [address] [place] [id number] Jul, [place] [address] [facility] [id number] [address] [place] [id number] Jul, Frequent headaches R51 ; Fib rocystic disease of left breast N60.12 ; Fibrocystic disease of right breast N60.11 and Diabetes E11.9 [place] [address] [place] [id number] [place] [phone] Jul, [place] [address] [id number] Jul, [place] [address] [address] [facility] [id number] [id number] 21 Jun, 2017 Exudative tonsillitis J03.90 [place] [address] [place] [id number] [address] [place] [id number] 20 Jun, 2017 [place] [address] [id number] 19 Jun, 2017 [place] [address] [place] [id number] [place] [id number] 15 Jun, 2017 Mild persistent asthma witho ut complication J45.30 ; Chronic obstructive pulmonary disease, unspecified COPD type J44.9 and Exudative tonsillitis J03.90 [place] [address] [place] [id number] [address] [place] [id number] 13 Jun, 2017 Encounter for immunization Z 23 [place] [address] [id number] Jun, [facility] [address] [facility] [id number] [address] [place] [id number] Jun, [facility] [address] [facility] [id number] [address] [place] [id number] Jun, [facility] [address] [facility] [id number] [address] [place] [phone] Jun, Tonsillitis J03.90 [facility] [address] [facility] [id number] [address] [place] [id number] Jun, [facility] [address] [facility] [id number] [address] [place] [id number] Jun, Acute non-recurrent maxillar y sinusitis J01.00 [facility] [address] [facility] [id number] [address] [place] [id number] Jun, [facility] [address] [facility] [id number] [address] [place] [id number] May, [facility] [address] [facility] [id number] [address] [place] [id number] May, [facility] [address] [facility] [id number] [address] [place] [id number] May, GERD (gastroesophageal reflu x disease) K21.9 [facility] [address] [facility] [id number] [address] [place] [id number] May, Migraine without aura and wi thout status migrainosus, not intractable G43.009 [facility] [address] [facility] [id number] [address] [place] [id number] May, [facility] [address] [facility] [id number] [address] [place] [id number] May, [facility] [address] [facility] [id number] [address] [place] [id number] May, Panlobular emphysema J43.1 a nd Acute non-recurrent maxillary sinusitis J01.00 [facility] [address] [id number] [address] [place] [id number] May, Bipolar 1 disorder, depresse d, moderate F31.32 ; Panic disorder with agoraphobia F40.01 and Akathisia G25.71 [facility] [address] [facility] [id number] [address] [place] [id number] Apr, [facility] [address] [facility] [id number] [address] [place] [id number] Apr, [facility] [address] [facility] [id number] [address] [place] [id number] Apr, Acute non-recurrent maxillar y sinusitis J01.00 [facility] [address] [facility] [id number] [address] [place] [id number] Apr, Panlobular emphysema J43.1 [facility] [address] [facility] [id number] [address] [place] [id number] Apr, [facility] [address] [facility] [id number] [address] [place] [id number] Apr, Exudative tonsillitis J03.90 and Sore throat J02.9 [facility] [address] [facility] [id number] [address] [place] [id number] 17 Mar, 2017 [facility] [address] [facility] [id number] [address] [place] [id number] 15 Mar, 2017 Acute non-recurrent maxillar y sinusitis J01.00 [facility] [address] [facility] [id number] [address] [place] [phone] Mar, [facility] [address] [facility] [id number] [address] [place] [id number] 09 Mar, 2017 Panlobular emphysema J43.1 a nd Diabetes E11.9 [facility] [address] [facility] [id number] [address] [place] [id number] 06 Mar, 2017 [facility] [address] [facility] [id number] [address] [place] [id number] 24 Feb, 2017 Wheezing R06.2 and Acute rec urrent pansinusitis J01.41 [facility] [address] [facility] [id number] [address] [place] [id number] Feb, [facility] [address] [facility] [id number] [address] [place] [id number] Feb, Acute non-recurrent maxillar y sinusitis J01.00 [facility] [address] [facility] [id number] [address] [place] [id number] 16 Feb, 2017 Chronic obstructive pulmonar y disease, unspecified J44.9 [place] [address] [place] [id number] [address] [place] [id number] Feb, Hypoxemia R09.02 and Chronic obstructive pulmonary disease, unspecified J44.9 [place] [address] [id number] 28 Jan, 2017 Bipolar 1 disorder, depresse d, moderate F31.32 ; Panic disorder with agoraphobia F40.01 ; Chronic post-traumatic stress disorder (PTSD) F43.12 ; Diabetes E11.9 and Moderate persistent asthma without complication J45.40 [facility] [address] [place] [id number] [address] [place] [id number] 22 Jan, 2017 [facility] [address] [place] [id number] [address] [place] [id number] 19 Jan, 2017 Acute non-recurrent maxillar y sinusitis J01.00 [facility] [address] [facility] [id number] [address] [place] [id number] 18 Jan, 2017 [facility] [address] [place] [id number] [address] [place] [id number] 18 Jan, 2017 [place] [address] [address] [place] [id number] [address] [place] [id number] 12 Jan, 2017 Moderate persistent [facility] complication J45.40 and Hypoxemia R09.02 [facility] [address] [id number] [address] [place] [id number] Jan, Moderate persistent asthma [facility] complication J45.40 and Hypoxemia R09.02 [facility] [address] [id number] [address] [place] [id number] Jan, [facility] [address] [facility] [id number] [address] [place] [id number] Dec, Acute non-recurrent maxillar y sinusitis J01.00 [facility] [address] [id number] [address] [place] [id number] Dec, Chronic obstructive pulmonar y disease, unspecified J44.9 [facility] [address] [id number] [address] [place] [id number] Dec, [facility] [address] [facility] [id number] [address] [place] [id number] Dec, [facility] J45.30 and Other chronic pain G89.29 [facility] [address] [id number] [address] [place] [id number] Nov, [facility] [address] [id number] [address] [place] [id number] Nov, Acute non-recurrent maxillar y sinusitis J01.00 [facility] [address] [id number] [address] [place] [id number] Nov, [facility] [address] [facility] [id number] [address] [place] [phone] Nov, [facility] [address] [facility] [id number] [address] [place] [phone] Oct, [facility] [address] [facility] [id number] [address] [place] [phone] Oct, Bipolar 1 disorder, depresse d, partial remission F31.75 ; Panic disorder with agoraphobia F40.01 and Chronic post-traumatic stress disorder (PTSD) F43.12 [place] [address] [address] [facility] [id number] [address] [place] [id number] Oct, Acute non-recurrent maxillar y sinusitis J01.00 [facility] [address] [facility] [id number] [address] [place] [id number] Oct, [facility] [address] [facility] [id number] [address] [place] [id number] Oct, Diabetes E11.9 [facility] [address] [facility] [id number] [address] [place] [id number] September, Diabetes E11.9 [facility] [address] [facility] [id number] [address] [place] [id number] September, Diabetes E11.9 and Sinus tac hycardia R00.0 [place] [address] [address] [facility] [id number] [address] [place] [id number] September, [facility] [address] [place] [id number] [address] [place] [id number] September, [facility] [address] [place] [id number] [address] [place] [phone] Aug, Diabetes E11.9 and Lumbago w ith sciatica, right side M54.41 [facility] [address] [place] [id number] [address] [place] [id number] Aug, [facility] [address] [place] [id number] [address] [place] [phone] Jul, Bipolar 1 disorder, depresse d, moderate F31.32 ; Panic disorder with agoraphobia F40.01 and Chronic post-traumatic stress disorder (PTSD) F43.12 [facility] [address] [facility] [id number] [address] [place] [phone] Jul, Sore throat J02.9 [facility] [address] [facility] [id number] [address] [place] [phone] [id number] Jul, 2016 [facility] [address] [place] [id number] [address] [place] [phone] Jul, [facility] [address] [facility] [id number] [address] [place] [phone] Jul, [facility] [address] [facility] [id number] [address] [place] [phone] Jul, [facility] [address] [facility] [id number] [address] [place] [phone] Jul, Sore throat J02.9 and Pharyn gitis, unspecified etiology J02.9 [facility] [address] [id number] [address] [place] [phone] Jun, [facility] [address] [facility] [id number] [address] [place] [phone] Jun, Diabetes E11.9 [facility] [address] [facility] [id number] [address] [place] [phone] Jun, [facility] [address] [facility] [id number] [address] [place] [phone] Jun, [facility] [address] [facility] [id number] [address] [place] [phone] Jun, [facility] [address] [facility] [id number] [address] [place] [phone] Jun, [facility] [address] [facility] [id number] [address] [place] [id number] Jun, [facility] [address] [facility] [id number] [address] [place] [phone] Jun, [facility] [address] [facility] [id number] [address] [place] [phone] Jun, [facility] [address] [facility] [id number] [address] [place] [id number] Jun, [facility] [address] [facility] [id number] [address] [place] [id number] May, Diabetes E11.9 ; Other chron ic pain G89.29 ; Acute recurrent maxillary sinusitis J01.01 ; Bipolar I disorder with depression F31.9 and Anxiety disorder, unspecified F41.9 [place] [address] [id number] [address] [place] [address] May, [place] [address] [id number] [address] [place] [address] May, Diabetes E11.9 ; Bipolar I d isorder with depression F31.9 ; Anxiety disorder, unspecified F41.9 ; Other chronic pain G89.29 and Acute recurrent maxillary sinusitis J01.01 [place] [address] [id number] [address] [place] [id number] May, [place] [address] [id number] [address] [place] [address] May, Attention deficit hyperactiv ity disorder (ADHD), predominantly inattentive type F90.0 [place] [address] [facility] [id number] [address] [place] [id number] May, [place] [address] [facility] [id number] [address] [place] [address] Apr, Attention deficit hyperactiv ity disorder (ADHD), predominantly inattentive type F90.0 and Non-seasonal allergic rhinitis due to other allergic trigger J30.89 [place] [address] [facility] [id number] [address] [place] [phone] Apr, Bipolar 1 disorder, depresse d, moderate F31.32 ; Panic disorder with agoraphobia F40.01 and Chronic post-traumatic stress disorder (PTSD) F43.12 [place] [address] [facility] [id number] [address] [place] [address] Apr, Dental examination Z01.20 [place] [address] [facility] [id number] [address] [place] [address] Mar, [place] [address] [facility] [id number] [address] [place] [address] Mar, [place] [address] [id number] [address] [place] [address] Mar, Bipolar I disorder with depr ession F31.9 and Anxiety disorder, unspecified F41.9 [facility] [address] [id number] [address] [place] [id number] 08 Mar, 2016 Panic disorder with agorapho syd F40.01 ; Bipolar 1 disorder, depressed, moderate F31.32 and Chronic post-traumatic stress disorder (PTSD) F43.12 [facility] [address] [id number] [address] [place] [id number] Mar, [facility] [address] [id number] [address] [place] [id number] 02 Mar, 2016 Dental caries K02.9 [facility] [address] [id number] [address] [place] [id number] 24 Feb, 2016 Lumbago with sciatica, left side M54.42 ; Lumbago with sciatica, right side M54.41 and Other chronic pain G89.29 [facility] [address] [id number] [address] [place] [phone] Feb, [facility] [address] [id number] [address] [place] [id number] 14 Feb, 2016 [facility] [address] [id number] [address] [place] [id number] 13 Feb, 2016 Bipolar I disorder with depr ession F31.9 ; PTSD (post-traumatic stress disorder) F43.10 and Mood disorder F39 [facility] [address] [id number] [address] [place] [id number] 13 Feb, 2016 [facility] [address] [id number] [address] [place] [address] 11 Feb, 2016 Dental examination Z01.20 [facility] [address] [id number] [address] [place] [id number] 07 Feb, 2016 [facility] [address] [address] Feb, Acute bronchitis, unspecifie d organism J20.9 [place] [address] [address] Jan, Mood disorder F39 ; Migraine without aura and without status migrainosus, not intractable G43.009 ; Irritable bowel syndrome, unspecified type K58.9 ; Diabetes E11.9 and Encounter for immunization Z23 [place] [address] [address] Jan, [place] [address] [id number] Jan, [place] [address] [address] Jan, [place] [address] [address] Jan, [place] [address] [address] Jan, [place] [address] [address] Dec, Bipolar I disorder with depr ession F31.9 ; PTSD (post-traumatic stress disorder) F43.10 and Panic disorder with agoraphobia F40.01 [place] [address] [address] Dec, Chronic obstructive pulmonar y disease, unspecified COPD type J44.9 ; Tremor R25.1 and Anxiety F41.9 [place] [address] [address] Dec, [place] [address] [address] Nov, Tremors of nervous system R2 5.1 and Cramping of feet R25.2 [place] [address] [address] Nov, [facility] [address] [facility] [id number] [address] [place] [id number] Nov, [facility] [address] [id number] [address] [place] [id number] Oct, Chronic obstructive pulmonar y disease, unspecified J44.9 [facility] [address] [facility] [id number] [address] [place] [address] Oct, [facility] [address] [id number] [address] [place] [address] Oct, Tremor R25.1 [place] [address] [facility] [id number] [address] [place] [address] Oct, Bipolar I disorder with depr ession F31.9 ; Diabetes E11.9 ; PTSD (post-traumatic stress disorder) F43.10 and Panic disorder with agoraphobia F40.01 [place] [address] [facility] [id number] [address] [place] [id number] Oct, Mood disorder F39 [place] [address] [facility] [id number] [address] [place] [id number] September, [facility] [address] [facility] [id number] [address] [place] [address] September, Diabetes E11.9 ; Bipolar I d isorder with depression F31.9 ; PTSD (post-traumatic stress disorder) F43.10 and Panic disorder with agoraphobia F40.01 [facility] [address] [id number] [address] [place] [address] September, Mood disorder F39 ; Schizoaf fective disorder, unspecified type F25.9 ; Arthritis M19.90 ; Tremor R25.1 ; Acute non-recurrent frontal sinusitis J01.10 and Blood in stool K92.1 [facility] [address] [facility] [id number] [address] [place] [id number] September, [facility] [address] [id number] [address] [place] [address] September, Chronic obstructive pulmonar y disease, unspecified J44.9 [facility] [address] [id number] [address] [place] [id number] September, Diabetes E11.9 [facility] [address] [id number] [address] [place] [id number] Aug, Other bipolar disorder F31.8 9 and Anxiety disorder, unspecified F41.9 [facility] [address] [id number] [address] [place] [address] Aug, [facility] [address] [id number] [address] [place] [id number] Aug, Diabetes E11.9 [facility] [address] [id number] [address] [place] [id number] 18 Aug, 2015 [facility] [address] [id number] [address] [place] [id number] 14 Aug, 2015 Diabetes E11.9 ; Fatigue R53 .83 and Dizziness R42 [facility] [address] [id number] [address] [place] [phone] Aug, Other bipolar disorder F31.8 9 [facility] [address] [id number] [address] [place] [id number] Aug, Generalized anxiety disorder F41.1 [facility] [address] [id number] [address] [place] [id number] 07 Aug, 2015 Other bipolar disorder F31.8 9 and Anxiety disorder, unspecified F41.9 [facility] [address] [id number] [address] [place] [id number] Aug, [facility] [address] [id number] [address] [place] [id number] Jul, [facility] [address] [id number] [address] [place] [id number] Jul, [facility] [address] [facility] [id number] [address] [place] [id number] Jul, Bronchitis J40 [facility] [address] [facility] [id number] [address] [place] [id number] Jul, Anxiety disorder F41.9 [facility] [address] [facility] [id number] [address] [place] [address] Jul, Other bipolar disorder F31.8 9 and Anxiety disorder, unspecified F41.9 [facility] [address] [place] [id number] [address] [place] [address] Jul, Other bipolar disorder F31.8 9 and Fibromyalgia M79.7 [facility] [address] [place] [id number] [address] [place] [id number] Jul, [facility] [id number] [place] [address] Jul, [facility] [id number] [place] [address] Jul, [facility] [address] [place] [id number] [address] [place] [id number] Jul, Other bipolar disorder F31.8 9 and Anxiety disorder, unspecified F41.9 [facility] [address] [place] [id number] [address] [place] [id number] Jun, GERD (gastroesophageal reflu x disease) K21.9 [facility] [address] [facility] [id number] [address] [place] [id number] Jun, [facility] [address] [place] [id number] [address] [place] [id number] May, [facility] [address] [place] [id number] [address] [place] [id number] May, Diabetes E11.9 ; Back pain M 54.9 ; GERD (gastroesophageal reflux disease) K21.9 ; Hypertension I10 and Peripheral neuropathy G62.9 [facility] [address] [place] [id number] [address] [place] [address] Mar, [facility] [address] [id number] [address] [place] [address] Mar, [facility] [address] [id number] [address] [place] [address] Mar, Acute sinusitis J01.90 and O titis media, left H66.92 [facility] [address] [id number] [address] [place] [id number] Feb, [facility] [address] [id number] [address] [place] [id number] Feb, [facility] [address] [id number] [address] [place] [id number] Feb, [facility] [address] [facility] [id number] [address] [place] [id number] Feb, [facility] [address] [id number] [address] [place] [id number] Jan, [facility] [address] [id number] [address] [place] [id number] Jan, Diabetes 250.00 and Back higinio n 724.5 [facility] [address] [id number] [address] [place] [address] Jan, [facility] [address] [id number] [address] [place] [id number] Dec, Diabetes 250.00 ; Benign ess ential hypertension 401.1 and Allergic rhinitis 477.9 [facility] [address] [id number] [address] [place] [id number] Dec, [facility] [address] [id number] [address] [place] [address] Dec, [facility] [address] [facility] [id number] [address] [place] [address] Dec, Psychosis 298.9 [facility] [address] [id number] [address] [place] [address] Dec, Medication side effect 995.2 0 and Generalized anxiety disorder 300.02 [facility] [address] [facility] [id number] [address] [place] [id number] Dec, Acquired cognitive dysfuncti on 294.9 [facility] [address] [facility] [id number] [address] [place] [address] Dec, [facility] [address] [facility] [id number] [address] [place] [id number] Dec, Unspecified myalgia and myos itis 729.1 and Generalized anxiety disorder 300.02 [facility] [address] [facility] [id number] [address] [place] [id number] Nov, [facility] [address] [facility] [id number] [address] [place] [phone] Nov, [facility] [address] [facility] [id number] [address] [place] [id number] Nov, [facility] [address] [facility] [id number] [address] [place] [id number] Nov, Upper respiratory infection 465.9 and Chronic airway obstruction, not elsewhere classified 496 [facility] [address] [facility] [id number] [address] [place] [phone] Nov, Hyponatremia 276.1 [facility] [address] [facility] [id number] [address] [place] [phone] Oct, [facility] [address] [facility] [id number] [address] [place] [address] Oct, [facility] [address] [id number] [address] [place] [address] Oct, [facility] [address] [facility] [id number] [address] [place] [phone] Oct, [facility] [address] [facility] [id number] [address] [place] [id number] Oct, Hyponatremia 276.1 [facility] [address] [id number] [address] [place] [phone] Oct, [facility] [address] [id number] [address] [place] [phone] Oct, [facility] [address] [id number] [address] [place] [address] Oct, Generalized anxiety disorder 300.02 [facility] [address] [id number] [address] [place] [id number] Oct, Generalized anxiety disorder 300.02 and Diabetes 250.00 [facility] [address] [id number] [address] [place] [id number] Aug, [facility] [address] [id number] [address] [place] [id number] Aug, [facility] [address] [id number] [address] [place] [id number] Jul, [facility] [address] [id number] [address] [place] [id number] Jul, [facility] [address] [id number] [address] [place] [id number] Jun, [facility] [address] [id number] [address] [place] [phone] Jun, [facility] [address] [id number] [address] [place] [phone] Jun, [facility] [address] [id number] [address] [place] [phone] Jun, [facility] [address] [id number] [address] [place] [phone] Jun, [facility] [address] [id number] [address] [place] [phone] May, [facility] [address] [id number] [address] [place] [id number] May, [facility] [address] [id number] [address] [place] [address], [place] [address] Apr, [facility] [address] [id number] [address] [place] [address], [place] [address] Apr, [facility] [address] [id number] [address] [place] [address], [place] [address] Apr, [facility] [address] [id number] [address] [place] [address], [place] [address] Apr, [facility] [address] [id number] [address] [place] [address], [place] [address] Apr, [facility] [address] [id number] [address] [place] [address], [place] [address] Apr, [facility] [address] [id number] [address] [place] [address], [place] [address] Apr, [facility] [address] [id number] [address] [place] [address], [place] [address] Apr, [facility] [address] [id number] [address] [place] [address], [place] [address] Feb, [facility] [address] [id number] [address] [place] [address], [place] [address] Feb, [facility] [address] [id number] [address] [place] [address], [place] [address] Jan, [facility] [address] [id number] [address] [place] [phone] Jan, [facility] [address] [id number] [address] [place] [address], [place] [address] Dec, [facility] [address] [id number] [address] [place] [address], [place] [address] Dec, [facility] [address] [id number] [address] [place] [address], [place] [address] Dec, [facility] [address] [id number] [address] [place] [address], [place] [address] Nov, [facility] [address] [id number] [address] [place] [address], [place] [address] Nov, [facility] [address] [id number] [address] [place] [address], [place] [address] Nov, [facility] [address] [id number] [address] [place] [address], [place] [address] Oct, [facility] [address] [id number] [address] [place] [address], [place] [address] Oct, [facility] [address] [id number] [address] [place] [address], [place] [address] Oct, [facility] [address] [id number] [address] [place] [address], [place] [address] September, [facility] [address] [id number] [address] [place] [address], [place] [address] September, [facility] [address] [id number] [address] [place] [address], [place] [address] September, [facility] [address] [id number] [address] [place] [address], [place] [address] Aug, [facility] [address] [id number] [address] [place] [address], [place] [address] Aug, [facility] [address] [id number] [address] [place] [address], [place] [address] Aug, [facility] [address] [id number] [address] [place] [address], [place] [address] 16 Aug, 2011 [facility] [address] [id number] [address] [place] [address], [place] [address] Jul, [facility] [address] [id number] [address] [place] [address], [place] [address] Jun, [facility] [address] [id number] [address] [place] [address], [place] [address] 14 Jun, 2011 [facility] [address] [id number] [address] [place] [address], [place] [address] 13 Jun, 2011 [facility] [address] [id number] [address] [place] [address], [place] [address] Jun, [facility] [address] [id number] [address] [place] [address], [place] [address] Jun, [facility] [address] [id number] [address] [place] [address], [place] [address] May, [facility] [address] [id number] [address] [place] [address], [place] [address] May, [facility] [address] [id number] [address] [place] [address], [place] [address] May, [facility] [address] [id number] [address] [place] [address], [place] [address] May, [facility] [address] [id number] [address] [place] [address] Apr, [facility] [address] [id number] [address] [place] [address], [place] [address] Apr, [facility] [address] [id number] [address] [place] [phone] Apr, [facility] [address] [id number] [address] [place] [id number] Mar, [facility] [address] [id number] [address] [place] [phone] Mar, [facility] [address] [id number] [address] [place] [address], [place] [address] Mar, [facility] [address] [id number] [address] [place] [id number] 13 Feb, 2011 [facility] [address] [id number] [address] [place] [id number] 13 Feb, 2011 [facility] [address] [id number] [address] [place] [phone] Feb, [facility] [address] [id number] [address] [place] [phone] Nov, [facility] [address] [id number] [address] [place] [phone] September, [facility] [address] [id number] [address] [place] [id number] Aug, [facility] [address] [id number] [address] [place] [phone] Jul, [facility] [address] [id number] [address] [place] [id number] May, [facility] [address] [id number] [address] [place] [id number] Apr, [facility] [address] [id number] [address] [place] [id number] Apr, [facility] [address] [id number] [address] [place] [id number] Apr, [facility] [address] [id number] [address] [place] [id number] Apr, [facility] [address] [id number] [address] [place] [phone] Apr, IMMUNIZATIONS No Known Immunizations SOCIAL HISTORY Never Assessed REASON FOR VISIT Medication Clarification PLAN OF CARE VITAL SIGNS MEDICATIONS Medication Instructions Dosage Frequency Start Date End Date Duration S tatus Pulmicort Flexhaler 90 mcg/act Inhalation Twice a day 1 puff 12h 31 Nov, 2017 Active Lorazepam 1 MG Orally in the AM and noon and 4pm 1 tablet Jul, 28 days Active Anoro Ellipta 62.5-25 MCG/INH Inhalation Once a day 1 puff 24h 18 J 2017 Active RESULTS No Results PROCEDURES No [...]
--- OUTSIDE RECORDS SUMMARY | 2019-07-17 10:56 | XMS REPORT ---
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 Name Role Phone WHIT GANDHI Unavailable PROBLEMS Type Condition ICD9-CM Code [id number] Code Onset Dates Condition S tatus SNOMED Code Problem Diabetes E11.9 Active 08875073 Problem GERD (gastroesophageal reflux disease) K21.9 Active 077303847 Problem Anxiety disorder, unspecified F41.9 Active 671654111 Problem Hypertension I10 Active 5068741 3 Problem Other bipolar disorder F31.89 Active 11828868 Problem Fibromyalgia M79.7 Active 2853449 7 Problem Panic disorder with agoraphobia F40.01 Active 36328844 Problem Chronic obstructive pulmonary disease, unspecified J44.9 Active 89677629 Problem Lumbago with sciatica, left side M54.42 Active 098328376 Problem Migraine without aura and without status migrain osus, not intractable G43.009 Active 986116092 Problem Lumbago with sciatica, right side M54.41 Active 912267634 Problem Fibrocystic disease of right breast N60.11 Active 74137853 Problem Other chronic pain G89.29 Active 8 5965052 Problem Fibrocystic disease of left breast N60.12 Active 65624990 Problem Irritable bowel syndrome with constipation K58.1 Active 502405675 Problem Arthritis M19.90 Active 0644205 Problem Abnormal mammogram of right breast R92.8 Active 485317941 Problem Daytime somnolence R40.0 Active 1 83355977341 Problem Bipolar affective disorder, remission status unspecified F31.9 Active 39749616 Problem Chronic post-traumatic stress disorder (PTSD) F43. 12 Active 968887846 Problem Bipolar 1 disorder, depressed, moderate F31.32 Active 91979656 Problem Schizoaffective disorder, bipolar type F25.0 Active 50378697 Problem Irritable bowel syndrome with both constipation and diarrh ea K58.2 Active 14638850 Problem Slow transit constipation K59.01 Acti ve 50635237 Problem Essential tremor G25.0 Active 609 487270 Problem Acute non-recurrent maxillary sinusitis J01.00 Active 05366737 Problem Back pain M54.9 Active 250396340 Problem Bipolar 1 disorder, depressed, partial remission F 31.75 Active 15123779 Problem Attention deficit hyperactiv ity disorder (ADHD), predominantly inattentive type F90.0 Active 25553863 Problem Bipolar I disorder with depression F31.9 Active 39952331 Problem Panlobular emphysema J43.1 Active 2777357 Problem Akathisia G25.71 Active 279887553 Problem Mild persistent asthma without complication J45.30 Active 714421269 Problem Moderate persistent asthma without complication J4 5.40 Active 353578944 ALLERGIES No Information ENCOUNTERS Encounter Location Date Diagnosis [place] [address] [address] Mar, [place] [address] [address] Feb, [facility] [address] [address] 04 Feb, 2018 Daytime somnolence R40.0 [place] [address] [address] Feb, [facility] [address] [address] Jan, [facility] [address] [address] Jan, [facility] [address] [address] Jan, Chronic obstructive pulmonar y disease, unspecified J44.9 and Anxiety disorder, unspecified F41.9 [facility] [address] [address] Jan, Hypertension I10 ; Fibromyal medhat M79.7 and Lumbago with sciatica, left side M54.42 [facility] [address] [place] [id number] [place] [address] 26 Jan, 2018 [facility] [address] [id number] [address] [place] [address] Jan, Cerebrovascular accident (CV A) due to occlusion of right cerebellar artery I63.541 [facility] [address] [id number] [address] [place] [address] 19 Jan, 2018 [facility] [address] [id number] [address] [place] [address] 13 Jan, 2018 Arthritis M19.90 [facility] [address] [id number] [address] [place] [address] 07 Jan, 2018 [place] [address] [facility] [id number] [address] [place] [address] 04 Jan, 2018 Abnormal mammogram of right breast R92.8 [place] [address] [place] [id number] [address] [place] [address] Dec, Daytime somnolence R40.0 and Right otitis media with effusion H65.91 [place] [address] [id number] [address] [place] [address] Dec, [place] [address] [facility] [id number] [address] [place] [address] Dec, Cerebrovascular accident (CV A) due to occlusion of right cerebellar artery I63.541 [facility] [address] [id number] [address] [place] [address] Dec, [facility] [address] [facility] [id number] [address] [place] [address] Dec, [place] [address] [facility] [id number] [address] [place] [address] Nov, Bipolar 1 disorder, depresse d, partial remission F31.75 and Panic disorder with agoraphobia F40.01 [place] [address] [place] [id number] [address] [place] [address] Nov, Panlobular emphysema J43.1 [facility] [address] [id number] [address] [place] [address] Nov, Cerebrovascular accident (CV A) due to occlusion of right cerebellar artery I63.541 and Acute non-recurrent maxillary sinusitis J01.00 [facility] [address] [id number] [address] [place] [address] Nov, Panlobular emphysema J43.1 [facility] [address] [id number] [address] [place] [address] Nov, [facility] [address] [id number] [address] [place] [address] Nov, [facility] [address] [id number] [address] [place] [address] Nov, [facility] [address] [id number] [address] [place] [address] Nov, [facility] [address] [id number] [address] [place] [phone] Nov, [facility] [address] [id number] [address] [place] [address] Nov, [facility] [address] [id number] [address] [place] [address] Nov, [facility] [address] [id number] [address] [place] [address] Nov, Mild persistent asthma witho ut complication J45.30 and Irritable bowel syndrome with both constipation and diarrhea K58.2 [facility] [address] [id number] [address] [place] [address] Nov, [facility] [address] [id number] [address] [place] [address] Oct, [facility] [address] [id number] [address] [place] [address] Oct, [facility] [address] [id number] [address] [place] [address] Oct, Type 2 diabetes mellitus wit h diabetic neuropathy, 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 ; Diabetes E11.9 ; Slow transit constipation K59.01 ; Edema of both legs R60.0 and Dysfunction of right eustachian tube H69.81 [facility] [address] [id number] [address] [place] [address] Oct, Frequent headaches R51 [facility] [address] [id number] [address] [place] [address] Oct, [facility] [address] [id number] [address] [place] [address] Oct, [facility] [address] [id number] [address] [place] [address] Oct, [facility] [address] [facility] [id number] [address] [place] [address] Oct, [facility] [address] [id number] [address] [place] [phone] Oct, [facility] [address] [facility] [id number] [address] [place] [address] Oct, [facility] [address] [facility] [id number] [address] [place] [address] Oct, [facility] [address] [facility] [id number] [address] [place] [address] Oct, [facility] [address] [facility] [id number] [address] [place] [address] September, Frequent headaches R51 [facility] [address] [facility] [id number] [address] [place] [address] September, Bilateral otitis media with effusion H65.93 ; Dizziness R42 and Essential tremor G25.0 [facility] [address] [id number] [address] [place] [address] September, Chronic obstructive pulmonar y disease, unspecified COPD type J44.9 [facility] [address] [facility] [id number] [address] [place] [address] September, Chronic obstructive pulmonar y disease, unspecified COPD type J44.9 [facility] [address] [facility] [id number] [address] [place] [address] September, Migraine without aura and wi thout status migrainosus, not intractable G43.009 [facility] [address] [facility] [id number] [address] [place] [address] September, [facility] [address] [facility] [id number] [address] [place] [address] September, [facility] [address] [facility] [id number] [address] [place] [address] September, [facility] [address] [place] [id number] [address] [place] [address] September, Frequent headaches R51 [facility] [address] [facility] [id number] [address] [place] [address] Aug, [facility] [address] [place] [id number] [address] [place] [address] Aug, Breast mass, right N63.10 [facility] [address] [facility] [id number] [address] [place] [address] Aug, Breast lump N63.0 [facility] [address] [facility] [id number] [address] [place] [address] Aug, [facility] [address] [place] [id number] [address] [place] [id number] Aug, Bipolar affective disorder, remission status unspecified F31.9 and Diabetes E11.9 [facility] [address] [facility] [id number] [address] [place] [address] Aug, Diabetes E11.9 ; Schizoaffec tive disorder, bipolar type F25.0 ; Pharyngitis due to other organism J02.8 ; Panlobular emphysema J43.1 and Irritable bowel syndrome with both constipation and diarrhea K58.2 [facility] [address] [id number] [address] [place] [address] Aug, Abnormal mammogram R92.8 [facility] [address] [id number] [address] [place] [address] Aug, [facility] [address] [id number] [address] [place] [id number] Aug, Bipolar 1 disorder, depresse d, moderate F31.32 ; Panic disorder with agoraphobia F40.01 and Chronic post-traumatic stress disorder (PTSD) F43.12 [facility] [address] [id number] [address] [place] [address] Aug, [facility] [address] [id number] [address] [place] [address] Aug, [facility] [address] [id number] [address] [place] [address] Aug, [facility] [address] [id number] [address] [place] [address] Jul, [facility] [address] [id number] [address] [place] [address] Jul, Mild persistent asthma witho ut complication J45.30 [facility] [address] [id number] [address] [place] [address] Jul, Mild persistent asthma witho ut complication J45.30 [facility] [address] [id number] [address] [place] [id number] 15 Jul, 2017 Bipolar affective disorder, remission status unspecified F31.9 ; Diabetes E11.9 and Irritable bowel syndrome with constipation K58.1 [facility] [address] [id number] [address] [place] [address] Jul, [facility] [address] [facility] [id number] [address] [place] [id number] Jul, [place] [address] [facility] [id number] [address] [place] [address] Jul, Frequent headaches R51 [place] [address] [facility] [id number] [address] [place] [id number] Jul, [facility] [address] [facility] [id number] [address] [place] [address] Jul, [place] [address] [facility] [id number] [address] [place] [address] Jul, [place] [address] [facility] [id number] [address] [place] [address] Jul, Frequent headaches R51 ; Fib rocystic disease of left breast N60.12 ; Fibrocystic disease of right breast N60.11 and Diabetes E11.9 [place] [address] [place] [id number] [place] [address] Jul, [place] [address] [address] Jul, [place] [address] [facility] [id number] [id number] 21 Jun, 2017 Exudative tonsillitis J03.90 [place] [address] [place] [id number] [address] [place] [address] 20 Jun, 2017 [place] [address] [address] 19 Jun, 2017 [place] [address] [place] [id number] [place] [address] 15 Jun, 2017 Mild persistent asthma witho ut complication J45.30 ; Chronic obstructive pulmonary disease, unspecified COPD type J44.9 and Exudative tonsillitis J03.90 [place] [address] [place] [id number] [address] [place] [address] 13 Jun, 2017 Encounter for immunization Z 23 [place] [address] [address] Jun, [facility] [address] [facility] [id number] [address] [place] [address] Jun, [facility] [address] [facility] [id number] [address] [place] [address] Jun, [facility] [address] [facility] [id number] [address] [place] [address] Jun, Tonsillitis J03.90 [facility] [address] [facility] [id number] [address] [place] [address] Jun, [facility] [address] [facility] [id number] [address] [place] [address] Jun, Acute non-recurrent maxillar y sinusitis J01.00 [facility] [address] [facility] [id number] [address] [place] [address] Jun, [facility] [address] [facility] [id number] [address] [place] [id number] May, [facility] [address] [facility] [id number] [address] [place] [address] May, [facility] [address] [facility] [id number] [address] [place] [address] May, GERD (gastroesophageal reflu x disease) K21.9 [facility] [address] [facility] [id number] [address] [place] [address] May, Migraine without aura and wi thout status migrainosus, not intractable G43.009 [facility] [address] [facility] [id number] [address] [place] [address] May, [facility] [address] [facility] [id number] [address] [place] [address] May, [facility] [address] [facility] [id number] [address] [place] [address] May, Panlobular emphysema J43.1 a nd Acute non-recurrent maxillary sinusitis J01.00 [facility] [address] [id number] [address] [place] [address] May, Bipolar 1 disorder, depresse d, moderate F31.32 ; Panic disorder with agoraphobia F40.01 and Akathisia G25.71 [facility] [address] [facility] [id number] [address] [place] [address] Apr, [facility] [address] [facility] [id number] [address] [place] [address] Apr, [facility] [address] [facility] [id number] [address] [place] [address] Apr, Acute non-recurrent maxillar y sinusitis J01.00 [facility] [address] [facility] [id number] [address] [place] [address] Apr, Panlobular emphysema J43.1 [facility] [address] [facility] [id number] [address] [place] [address] Apr, [facility] [address] [facility] [id number] [address] [place] [address] Apr, Exudative tonsillitis J03.90 and Sore throat J02.9 [facility] [address] [facility] [id number] [address] [place] [address] 17 Mar, 2017 [facility] [address] [facility] [id number] [address] [place] [id number] 15 Mar, 2017 Acute non-recurrent maxillar y sinusitis J01.00 [facility] [address] [facility] [id number] [address] [place] [address] Mar, [facility] [address] [facility] [id number] [address] [place] [id number] 09 Mar, 2017 Panlobular emphysema J43.1 a nd Diabetes E11.9 [facility] [address] [facility] [id number] [address] [place] [address] 06 Mar, 2017 [facility] [address] [facility] [id number] [address] [place] [id number] 24 Feb, 2017 Wheezing R06.2 and Acute rec urrent pansinusitis J01.41 [facility] [address] [facility] [id number] [address] [place] [address] Feb, [facility] [address] [facility] [id number] [address] [place] [id number] Feb, Acute non-recurrent maxillar y sinusitis J01.00 [facility] [address] [facility] [id number] [address] [place] [address] 16 Feb, 2017 Chronic obstructive pulmonar y disease, unspecified J44.9 [place] [address] [place] [id number] [address] [place] [address] Feb, Hypoxemia R09.02 and Chronic obstructive pulmonary disease, unspecified J44.9 [place] [address] [address] 28 Jan, 2017 Bipolar 1 disorder, depresse d, moderate F31.32 ; Panic disorder with agoraphobia F40.01 ; Chronic post-traumatic stress disorder (PTSD) F43.12 ; Diabetes E11.9 and Moderate persistent asthma without complication J45.40 [facility] [address] [place] [id number] [address] [place] [address] 22 Jan, 2017 [facility] [address] [place] [id number] [address] [place] [id number] 19 Jan, 2017 Acute non-recurrent maxillar y sinusitis J01.00 [facility] [address] [facility] [id number] [address] [place] [id number] 18 Jan, 2017 [facility] [address] [place] [id number] [address] [place] [id number] 18 Jan, 2017 [place] [address] [place] [id number] [address] [place] [id number] 12 Jan, 2017 Moderate persistent asthma w [facility] complication J45.40 and Hypoxemia R09.02 [facility] [address] [id number] [address] [place] [address] Jan, Moderate persistent asthma w [facility] complication J45.40 and Hypoxemia R09.02 [facility] [address] [id number] [address] [place] [address] Jan, [facility] [address] [facility] [id number] [address] [place] [address] Dec, Acute non-recurrent maxillar y sinusitis J01.00 [facility] [address] [id number] [address] [place] [address] Dec, Chronic obstructive pulmonar y disease, unspecified J44.9 [facility] [address] [id number] [address] [place] [address] Dec, [facility] [address] [facility] [id number] [address] [place] [address] Dec, [facility] J[facility].30 and Other chronic pain G89.29 [facility] [address] [id number] [address] [place] [address] Nov, [facility] [address] [id number] [address] [place] [address] Nov, Acute non-recurrent maxillar y sinusitis J01.00 [facility] [address] [id number] [address] [place] [id number] Nov, [facility] [address] [facility] [id number] [address] [place] [id number] Nov, [facility] [address] [facility] [id number] [place] [id number] Oct, [facility] [address] [facility] [id number] [place] [id number] Oct, Bipolar 1 disorder, depresse d, partial remission F31.75 ; Panic disorder with agoraphobia F40.01 and Chronic post-traumatic stress disorder (PTSD) F43.12 [place] [address] [facility] [id number] [address] [place] [id number] Oct, Acute non-recurrent maxillar y sinusitis J01.00 [facility] [address] [facility] [id number] [place] [address] [id number] Oct, [facility] [address] [facility] [id number] [address] [place] [address] Oct, Diabetes E11.9 [facility] [address] [facility] [id number] [address] [place] [address] September, Diabetes E11.9 [facility] [address] [facility] [id number] [address] [place] [address] September, Diabetes E11.9 and Sinus tac hycardia R00.0 [place] [address] [facility] [id number] [address] [place] [address] September, [facility] [address] [place] [id number] [address] [place] [address] September, [facility] [address] [place] [id number] [address] [place] [address] Aug, Diabetes E11.9 and Lumbago w ith sciatica, right side M54.41 [facility] [address] [place] [id number] [address] [place] [address] Aug, [facility] [address] [place] [id number] [address] [place] [address] Jul, Bipolar 1 disorder, depresse d, moderate F31.32 ; Panic disorder with agoraphobia F40.01 and Chronic post-traumatic stress disorder (PTSD) F43.12 [facility] [address] [facility] [id number] [address] [place] [address] Jul, Sore throat J02.9 [facility] [address] [facility] [id number] [address] [place] [id number] 16 Jul, 2016 [facility] [address] [place] [id number] [address] [place] [phone] Jul, [facility] [address] [facility] [id number] [address] [place] [phone] Jul, [facility] [address] [facility] [id number] [address] [place] [phone] Jul, [facility] [address] [facility] [id number] [address] [place] [phone] Jul, Sore throat J02.9 and Pharyn gitis, unspecified etiology J02.9 [facility] [address] [id number] [address] [place] [address] Jun, [facility] [address] [facility] [id number] [address] [place] [address] Jun, Diabetes E11.9 [facility] [address] [facility] [id number] [address] [place] [address] Jun, [facility] [address] [facility] [id number] [address] [place] [address] Jun, [facility] [address] [facility] [id number] [address] [place] [phone] Jun, [facility] [address] [facility] [id number] [address] [place] [address] Jun, [facility] [address] [facility] [id number] [address] [place] [phone] Jun, [facility] [address] [facility] [id number] [address] [place] [phone] Jun, [facility] [address] [facility] [id number] [address] [place] [phone] Jun, [facility] [address] [facility] [id number] [address] [place] [address] Jun, [facility] [address] [facility] [id number] [address] [place] [address] May, Diabetes E11.9 ; Other chron ic pain G89.29 ; Acute recurrent maxillary sinusitis J01.01 ; Bipolar I disorder with depression F31.9 and Anxiety disorder, unspecified F41.9 [place] [address] [id number] [address] [place] [address] May, [place] [address] [id number] [address] [place] [address] May, Diabetes E11.9 ; Bipolar I d isorder with depression F31.9 ; Anxiety disorder, unspecified F41.9 ; Other chronic pain G89.29 and Acute recurrent maxillary sinusitis J01.01 [place] [address] [id number] [address] [place] [address] May, [place] [address] [id number] [address] [place] [address] May, Attention deficit hyperactiv ity disorder (ADHD), predominantly inattentive type F90.0 [place] [address] [facility] [id number] [address] [place] [address] May, [place] [address] [facility] [id number] [address] [place] [address] Apr, Attention deficit hyperactiv ity disorder (ADHD), predominantly inattentive type F90.0 and Non-seasonal allergic rhinitis due to other allergic trigger J30.89 [place] [address] [facility] [id number] [address] [place] [address] Apr, Bipolar 1 disorder, depresse d, moderate F31.32 ; Panic disorder with agoraphobia F40.01 and Chronic post-traumatic stress disorder (PTSD) F43.12 [place] [address] [facility] [id number] [address] [place] [address] Apr, Dental examination Z01.20 [place] [address] [facility] [id number] [address] [place] [phone] Mar, [place] [address] [facility] [id number] [address] [place] [address] Mar, [place] [address] [id number] [address] [place] [address] Mar, Bipolar I disorder with depr ession F31.9 and Anxiety disorder, unspecified F41.9 [facility] [address] [id number] [address] [place] [address] 08 Mar, 2016 Panic disorder with agorapho syd F40.01 ; Bipolar 1 disorder, depressed, moderate F31.32 and Chronic post-traumatic stress disorder (PTSD) F43.12 [facility] [address] [id number] [address] [place] [address] Mar, [facility] [address] [id number] [address] [place] [address] 02 Mar, 2016 Dental caries K02.9 [facility] [address] [id number] [address] [place] [address] 24 Feb, 2016 Lumbago with sciatica, left side M54.42 ; Lumbago with sciatica, right side M54.41 and Other chronic pain G89.29 [facility] [address] [id number] [address] [place] [address] Feb, [facility] [address] [id number] [address] [place] [address] 14 Feb, 2016 [facility] [address] [id number] [address] [place] [address] 13 Feb, 2016 Bipolar I disorder with depr ession F31.9 ; PTSD (post-traumatic stress disorder) F43.10 and Mood disorder F39 [facility] [address] [id number] [address] [place] [address] 13 Feb, 2016 [facility] [address] [id number] [address] [place] [address] 11 Feb, 2016 Dental examination Z01.20 [facility] [address] [id number] [address] [place] [address] 07 Feb, 2016 [facility] [address] [address] Feb, Acute bronchitis, unspecifie d organism J20.9 [place] [address] [address] Jan, Mood disorder F39 ; Migraine without aura and without status migrainosus, not intractable G43.009 ; Irritable bowel syndrome, unspecified type K58.9 ; Diabetes E11.9 and Encounter for immunization Z23 [place] [address] [address] Jan, [place] [address] [address] Jan, [place] [address] [address] Jan, [place] [address] [address] Jan, [place] [address] [address] Jan, [place] [address] [address] Dec, Bipolar I disorder with depr ession F31.9 ; PTSD (post-traumatic stress disorder) F43.10 and Panic disorder with agoraphobia F40.01 [place] [address] [address] Dec, Chronic obstructive pulmonar y disease, unspecified COPD type J44.9 ; Tremor R25.1 and Anxiety F41.9 [place] [address] [address] Dec, [place] [address] [address] Nov, Tremors of nervous system R2 5.1 and Cramping of feet R25.2 [place] [address] [address] Nov, [facility] [address] [facility] [id number] [address] [place] [address] Nov, [facility] [address] [id number] [address] [place] [phone] Oct, Chronic obstructive pulmonar y disease, unspecified J44.9 [facility] [address] [facility] [id number] [address] [place] [address] Oct, [facility] [address] [id number] [address] [place] [address] Oct, Tremor R25.1 [place] [address] [facility] [id number] [address] [place] [phone] Oct, Bipolar I disorder with depr ession F31.9 ; Diabetes E11.9 ; PTSD (post-traumatic stress disorder) F43.10 and Panic disorder with agoraphobia F40.01 [place] [address] [facility] [id number] [address] [place] [phone] Oct, Mood disorder F39 [place] [address] [facility] [id number] [address] [place] [address] September, [facility] [address] [facility] [id number] [address] [place] [address] September, Diabetes E11.9 ; Bipolar I d isorder with depression F31.9 ; PTSD (post-traumatic stress disorder) F43.10 and Panic disorder with agoraphobia F40.01 [facility] [address] [id number] [address] [place] [address] September, Mood disorder F39 ; Schizoaf fective disorder, unspecified type F25.9 ; Arthritis M19.90 ; Tremor R25.1 ; Acute non-recurrent frontal sinusitis J01.10 and Blood in stool K92.1 [facility] [address] [facility] [id number] [address] [place] [address] September, [facility] [address] [id number] [address] [place] [address] September, Chronic obstructive pulmonar y disease, unspecified J44.9 [facility] [address] [id number] [address] [place] [address] September, Diabetes E11.9 [facility] [address] [id number] [address] [place] [phone] Aug, Other bipolar disorder F31.8 9 and Anxiety disorder, unspecified F41.9 [facility] [address] [id number] [address] [place] [address] Aug, [facility] [address] [id number] [address] [place] [address] Aug, Diabetes E11.9 [facility] [address] [id number] [address] [place] [address] 18 Aug, 2015 [facility] [address] [id number] [address] [place] [address] 14 Aug, 2015 Diabetes E11.9 ; Fatigue R53 .83 and Dizziness R42 [facility] [address] [id number] [address] [place] [address] Aug, Other bipolar disorder F31.8 9 [facility] [address] [id number] [address] [place] [address] Aug, Generalized anxiety disorder F41.1 [facility] [address] [id number] [address] [place] [address] 07 Aug, 2015 Other bipolar disorder F31.8 9 and Anxiety disorder, unspecified F41.9 [facility] [address] [id number] [address] [place] [address] Aug, [facility] [address] [id number] [address] [place] [phone] Jul, [facility] [address] [id number] [address] [place] [address] Jul, [facility] [address] [facility] [id number] [address] [place] [address] Jul, Bronchitis J40 [facility] [address] [facility] [id number] [address] [place] [address] Jul, Anxiety disorder F41.9 [facility] [address] [facility] [id number] [address] [place] [address] Jul, Other bipolar disorder F31.8 9 and Anxiety disorder, unspecified F41.9 [facility] [address] [place] [id number] [address] [place] [address] Jul, Other bipolar disorder F31.8 9 and Fibromyalgia M79.7 [facility] [address] [place] [id number] [address] [place] [address] Jul, [facility] [id number] [place] [address] Jul, [facility] [address] [place] [address] Jul, [facility] [address] [place] [id number] [address] [place] [phone] Jul, Other bipolar disorder F31.8 9 and Anxiety disorder, unspecified F41.9 [facility] [address] [place] [id number] [address] [place] [address] Jun, GERD (gastroesophageal reflu x disease) K21.9 [facility] [address] [facility] [id number] [address] [place] [phone] Jun, [facility] [address] [place] [id number] [address] [place] [address] May, [facility] [address] [place] [id number] [address] [place] [address] May, Diabetes E11.9 ; Back pain M 54.9 ; GERD (gastroesophageal reflux disease) K21.9 ; Hypertension I10 and Peripheral neuropathy G62.9 [facility] [address] [place] [id number] [address] [place] [address] Mar, [facility] [address] [id number] [address] [place] [id number] Mar, [facility] [address] [id number] [address] [place] [address] Mar, Acute sinusitis J01.90 and O titis media, left H66.92 [facility] [address] [id number] [address] [place] [address] Feb, [facility] [address] [id number] [address] [place] [address] Feb, [facility] [address] [id number] [address] [place] [phone] Feb, [facility] [address] [facility] [id number] [address] [place] [address] Feb, [facility] [address] [id number] [address] [place] [phone] Jan, [facility] [address] [id number] [address] [place] [address] Jan, Diabetes 250.00 and Back higinio n 724.5 [facility] [address] [id number] [address] [place] [address] Jan, [facility] [address] [id number] [address] [place] [address] Dec, Diabetes 250.00 ; Benign ess ential hypertension 401.1 and Allergic rhinitis 477.9 [facility] [address] [id number] [address] [place] [address] Dec, [facility] [address] [id number] [address] [place] [address] Dec, [facility] [address] [facility] [id number] [address] [place] [address] Dec, Psychosis 298.9 [facility] [address] [id number] [address] [place] [address] Dec, Medication side effect 995.2 0 and Generalized anxiety disorder 300.02 [facility] [address] [facility] [id number] [address] [place] [address] Dec, Acquired cognitive dysfuncti on 294.9 [facility] [address] [facility] [id number] [address] [place] [address] Dec, [facility] [address] [facility] [id number] [address] [place] [address] Dec, Unspecified myalgia and myos itis 729.1 and Generalized anxiety disorder 300.02 [facility] [address] [facility] [id number] [address] [place] [address] Nov, [facility] [address] [facility] [id number] [address] [place] [phone] Nov, [facility] [address] [facility] [id number] [address] [place] [address] Nov, [facility] [address] [facility] [id number] [address] [place] [address] Nov, Upper respiratory infection 465.9 and Chronic airway obstruction, not elsewhere classified 496 [facility] [address] [facility] [id number] [address] [place] [phone] Nov, Hyponatremia 276.1 [facility] [address] [facility] [id number] [address] [place] [phone] Oct, [facility] [address] [facility] [id number] [address] [place] [address] Oct, [facility] [address] [id number] [address] [place] [address] Oct, [facility] [address] [facility] [id number] [address] [place] [address] Oct, [facility] [address] [facility] [id number] [address] [place] [address] Oct, Hyponatremia 276.1 [facility] [address] [id number] [address] [place] [address] Oct, [facility] [address] [id number] [address] [place] [address] Oct, [facility] [address] [id number] [address] [place] [address] Oct, Generalized anxiety disorder 300.02 [facility] [address] [id number] [address] [place] [address] Oct, Generalized anxiety disorder 300.02 and Diabetes 250.00 [facility] [address] [id number] [address] [place] [address] Aug, [facility] [address] [id number] [address] [place] [address] Aug, [facility] [address] [id number] [address] [place] [address] Jul, [facility] [address] [id number] [address] [place] [phone] Jul, [facility] [address] [id number] [address] [place] [phone] Jun, [facility] [address] [id number] [address] [place] [address] Jun, [facility] [address] [id number] [address] [place] [address] Jun, [facility] [address] [id number] [address] [place] [phone] Jun, [facility] [address] [id number] [address] [place] [address] Jun, [facility] [address] [id number] [address] [place] [address] May, [facility] [address] [id number] [address] [place] [phone] May, [facility] [address] [id number] [address] [place] [address], [place] [address] Apr, [facility] [address] [id number] [address] [place] [address], [place] [address] Apr, [facility] [address] [id number] [address] [place] [address], [place] [address] Apr, [facility] [address] [id number] [address] [place] [address], [place] [address] Apr, [facility] [address] [id number] [address] [place] [address], [place] [address] Apr, [facility] [address] [id number] [address] [place] [address], [place] [address] Apr, [facility] [address] [id number] [address] [place] [address], [place] [address] Apr, [facility] [address] [id number] [address] [place] [address], [place] [address] Apr, [facility] [address] [id number] [address] [place] [address], [place] [address] Feb, [facility] [address] [id number] [address] [place] [address], [place] [address] Feb, [facility] [address] [id number] [address] [place] [address], [place] [address] Jan, [facility] [address] [id number] [address] [place] [id number] Jan, [facility] [address] [id number] [address] [place] [address], [place] [address] Dec, [facility] [address] [id number] [address] [place] [address], [place] [address] Dec, [facility] [address] [id number] [address] [place] [address], [place] [address] Dec, [facility] [address] [id number] [address] [place] [address], [place] [address] Nov, [facility] [address] [id number] [address] [place] [address], [place] [address] Nov, [facility] [address] [id number] [address] [place] [address], [place] [address] Nov, [facility] [address] [id number] [address] [place] [address], [place] [address] Oct, [facility] [address] [id number] [address] [place] [address], [place] [address] Oct, [facility] [address] [id number] [address] [place] [address], [place] [address] Oct, [facility] [address] [id number] [address] [place] [address], [place] [address] September, [facility] [address] [id number] [address] [place] [address], [place] [address] September, [facility] [address] [id number] [address] [place] [address], [place] [address] September, [facility] [address] [id number] [address] [place] [address], [place] [address] Aug, [facility] [address] [id number] [address] [place] [address], [place] [address] Aug, [facility] [address] [id number] [address] [place] [address], [place] [address] Aug, [facility] [address] [id number] [address] [place] [address], [place] [address] 16 Aug, 2011 [facility] [address] [id number] [address] [place] [address], [place] [address] Jul, [facility] [address] [id number] [address] [place] [address], [place] [address] Jun, [facility] [address] [id number] [address] [place] [address], [place] [address] 14 Jun, 2011 [facility] [address] [id number] [address] [place] [address], [place] [address] 13 Jun, 2011 [facility] [address] [id number] [address] [place] [address], [place] [address] Jun, [facility] [address] [id number] [address] [place] [address], [place] [address] Jun, [facility] [address] [id number] [address] [place] [address], [place] [address] May, [facility] [address] [id number] [address] [place] [address], [place] [address] May, [facility] [address] [id number] [address] [place] [address], [place] [address] May, [facility] [address] [id number] [address] [place] [address], [place] [address] May, [facility] [address] [id number] [address] [place] [phone] Apr, [facility] [address] [id number] [address] [place] [address], [place] [address] Apr, [facility] [address] [id number] [address] [place] [phone] Apr, [facility] [address] [id number] [address] [place] [phone] Mar, [facility] [address] [id number] [address] [place] [phone] Mar, [facility] [address] [id number] [address] [place] [address], [place] [address] Mar, [facility] [address] [id number] [address] [place] [id number] 13 Feb, 2011 [facility] [address] [id number] [address] [place] [phone] 13 Feb, 2011 [facility] [address] [id number] [address] [place] [phone] 13 Feb, 2011 [facility] [address] [id number] [address] [place] [phone] 11 Nov, 2010 [facility] [address] [id number] [address] [place] [phone] 16 Sep, 2010 [facility] [address] [id number] [address] [place] [phone] 12 Aug, 2010 [facility] [address] [id number] [address] [place] [phone] 14 Jul, 2010 [facility] [address] [id number] [address] [place] [phone] May, [facility] [address] [id number] [address] [place] [phone] Apr, [facility] [address] [id number] [address] [place] [phone] Apr, [facility] [address] [id number] [address] [place] [phone] Apr, [facility] [address] [id number] [address] [place] [phone] Apr, [facility] [address] [id number] [address] [place] [phone] Apr, IMMUNIZATIONS No Known Immunizations SOCIAL HISTORY [...]
--- OUTSIDE RECORDS SUMMARY | 2019-07-17 10:56 | XMS REPORT ---
Author Author Sujey GANDHI Organization [facility] Address [address] [place] [address] Care Team Providers Care Heat Treatment Technician Name Role Phone WHIT GANDHI Unavailable PROBLEMS Type Condition ICD9-CM Code PPH56-XG Code Onset Dates Condition S tatus SNOMED Code Problem Diabetes E11.9 Active 18483302 Problem GERD (gastroesophageal reflux disease) K21.9 Active 954800236 Problem Anxiety disorder, unspecified F41.9 Active 203356736 Problem Hypertension I10 Active 4962201 3 Problem Other bipolar disorder F31.89 Active 47198781 Problem Fibromyalgia M79.7 Active 6063474 7 Problem Panic disorder with agoraphobia F40.01 Active 43532056 Problem Chronic obstructive pulmonary disease, unspecified J44.9 Active 71172548 Problem Lumbago with sciatica, left side M54.42 Active 987705819 Problem Migraine without aura and without status migrain osus, not intractable G43.009 Active 345436012 Problem Lumbago with sciatica, right side M54.41 Active 564465266 Problem Fibrocystic disease of right breast N60.11 Active 10381642 Problem Other chronic pain G89.29 Active 8 1467518 Problem Fibrocystic disease of left breast N60.12 Active 13563749 Problem Irritable bowel syndrome with constipation K58.1 Active 946785157 Problem Arthritis M19.90 Active 2966631 Problem Abnormal mammogram of right breast R92.8 Active 416575655 Problem Daytime somnolence R40.0 Active 1 [id number] Problem Bipolar affective disorder, remission status unspecified F31.9 Active 88412126 Problem Chronic post-traumatic stress disorder (PTSD) F43. 12 Active 436221992 Problem Bipolar 1 disorder, depressed, moderate F31.32 Active 73731187 Problem Schizoaffective disorder, bipolar type F25.0 Active 00304630 Problem Irritable bowel syndrome with both constipation and diarrh ea K58.2 Active 63693931 Problem Slow transit constipation K59.01 Acti ve 25919145 Problem Essential tremor G25.0 Active 609 925958 Problem Acute non-recurrent maxillary sinusitis J01.00 Active 21576525 Problem Back pain M54.9 Active 879730864 Problem Bipolar 1 disorder, depressed, partial remission F 31.75 Active 34707525 Problem Attention deficit hyperactiv ity disorder (ADHD), predominantly inattentive type F90.0 Active 92367843 Problem Bipolar I disorder with depression F31.9 Active 87391769 Problem Panlobular emphysema J43.1 Active 9492410 Problem Akathisia G25.71 Active 670727310 Problem Mild persistent asthma without complication J45.30 Active 323841199 Problem Moderate persistent asthma without complication J4 5.40 Active 139616437 ALLERGIES No Information ENCOUNTERS Encounter Location Date Diagnosis [place] [address] [address] Mar, [place] [address] [address] Feb, [facility] [address] [address] 04 Feb, 2018 Daytime somnolence R40.0 [place] [address] [address] Feb, [facility] [address] [address] Jan, [facility] [address] [address] Jan, [facility] [address] [address] Jan, Chronic obstructive pulmonar y disease, unspecified J44.9 and Anxiety disorder, unspecified F41.9 [facility] [address] [address] Jan, Hypertension I10 ; Fibromyal medhat M79.7 and Lumbago with sciatica, left side M54.42 [facility] [address] [place] [id number] [place] [address] 26 Jan, 2018 [facility] [address] [id number] [address] [place] [address] Jan, Cerebrovascular accident (CV A) due to occlusion of right cerebellar artery I63.541 [facility] [address] [id number] [address] [place] [address] 19 Jan, 2018 [facility] [address] [id number] [address] [place] [address] 13 Jan, 2018 Arthritis M19.90 [facility] [address] [id number] [address] [place] [address] 07 Jan, 2018 [place] [address] [facility] [id number] [address] [place] [address] 04 Jan, 2018 Abnormal mammogram of right breast R92.8 [place] [address] [place] [id number] [address] [place] [address] Dec, Daytime somnolence R40.0 and Right otitis media with effusion H65.91 [place] [address] [id number] [address] [place] [address] Dec, [place] [address] [facility] [id number] [address] [place] [id number] Dec, Cerebrovascular accident (CV A) due to occlusion of right cerebellar artery I63.541 [facility] [address] [id number] [address] [place] [address] Dec, [facility] [address] [facility] [id number] [address] [place] [address] Dec, [place] [address] [facility] [id number] [address] [place] [address] Nov, Bipolar 1 disorder, depresse d, partial remission F31.75 and Panic disorder with agoraphobia F40.01 [place] [address] [place] [id number] [address] [place] [address] Nov, Panlobular emphysema J43.1 [facility] [address] [id number] [address] [place] [address] Nov, Cerebrovascular accident (CV A) due to occlusion of right cerebellar artery I63.541 and Acute non-recurrent maxillary sinusitis J01.00 [facility] [address] [id number] [address] [place] [address] Nov, Panlobular emphysema J43.1 [facility] [address] [id number] [address] [place] [address] Nov, [facility] [address] [id number] [address] [place] [id number] Nov, [facility] [address] [id number] [address] [place] [address] Nov, [facility] [address] [id number] [address] [place] [address] Nov, [facility] [address] [id number] [address] [place] [address] Nov, [facility] [address] [id number] [address] [place] [address] Nov, [facility] [address] [id number] [address] [place] [address] Nov, [facility] [address] [id number] [address] [place] [address] Nov, Mild persistent asthma witho ut complication J45.30 and Irritable bowel syndrome with both constipation and diarrhea K58.2 [facility] [address] [id number] [address] [place] [address] Nov, [facility] [address] [id number] [address] [place] [id number] Oct, [facility] [address] [id number] [address] [place] [address] Oct, [facility] [address] [id number] [address] [place] [address] Oct, Type 2 diabetes mellitus wit h diabetic neuropathy, unspecified whether termite treater helper insulin use E11.40 ; Diabetes E11.9 ; Slow transit constipation K59.01 ; Edema of both legs R60.0 and Dysfunction of right eustachian tube H69.81 [facility] [address] [id number] [address] [place] [address] Oct, Frequent headaches R51 [facility] [address] [id number] [address] [place] [id number] Oct, [facility] [address] [id number] [address] [place] [address] Oct, [facility] [address] [id number] [address] [place] [address] Oct, [facility] [address] [facility] [id number] [address] [place] [address] Oct, [facility] [address] [id number] [address] [place] [address] Oct, [facility] [address] [facility] [id number] [address] [place] [address] Oct, [facility] [address] [facility] [id number] [address] [place] [address] Oct, [facility] [address] [facility] [id number] [address] [place] [address] Oct, [facility] [address] [facility] [id number] [address] [place] [address] September, Frequent headaches R51 [facility] [address] [facility] [id number] [address] [place] [address] September, Bilateral otitis media with effusion H65.93 ; Dizziness R42 and Essential tremor G25.0 [facility] [address] [id number] [address] [place] [address] September, Chronic obstructive pulmonar y disease, unspecified COPD type J44.9 [facility] [address] [facility] [id number] [address] [place] [address] September, Chronic obstructive pulmonar y disease, unspecified COPD type J44.9 [facility] [address] [facility] [id number] [address] [place] [address] September, Migraine without aura and wi thout status migrainosus, not intractable G43.009 [facility] [address] [facility] [id number] [address] [place] [address] September, [facility] [address] [facility] [id number] [address] [place] [address] September, [facility] [address] [facility] [id number] [address] [place] [address] September, [facility] [address] [place] [id number] [address] [place] [address] September, Frequent headaches R51 [facility] [address] [facility] [id number] [address] [place] [address] Aug, [facility] [address] [place] [id number] [address] [place] [address] Aug, Breast mass, right N63.10 [facility] [address] [facility] [id number] [address] [place] [address] Aug, Breast lump N63.0 [facility] [address] [facility] [id number] [address] [place] [address] Aug, [facility] [address] [place] [id number] [address] [place] [address] Aug, Bipolar affective disorder, remission status unspecified F31.9 and Diabetes E11.9 [facility] [address] [facility] [id number] [address] [place] [address] Aug, Diabetes E11.9 ; Schizoaffec tive disorder, bipolar type F25.0 ; Pharyngitis due to other organism J02.8 ; Panlobular emphysema J43.1 and Irritable bowel syndrome with both constipation and diarrhea K58.2 [facility] [address] [id number] [address] [place] [address] Aug, Abnormal mammogram R92.8 [facility] [address] [id number] [address] [place] [address] Aug, [facility] [address] [id number] [address] [place] [address] Aug, Bipolar 1 disorder, depresse d, moderate F31.32 ; Panic disorder with agoraphobia F40.01 and Chronic post-traumatic stress disorder (PTSD) F43.12 [facility] [address] [id number] [address] [place] [address] Aug, [facility] [address] [id number] [address] [place] [address] Aug, [facility] [address] [id number] [address] [place] [address] Aug, [facility] [address] [id number] [address] [place] [id number] Jul, [facility] [address] [id number] [address] [place] [address] Jul, Mild persistent asthma witho ut complication J45.30 [facility] [address] [id number] [address] [place] [address] Jul, Mild persistent asthma witho ut complication J45.30 [facility] [address] [id number] [address] [place] [address] 15 Jul, 2017 Bipolar affective disorder, remission status unspecified F31.9 ; Diabetes E11.9 and Irritable bowel syndrome with constipation K58.1 [facility] [address] [id number] [address] [place] [address] Jul, [facility] [address] [facility] [id number] [address] [place] [address] Jul, [place] [address] [facility] [id number] [address] [place] [address] Jul, Frequent headaches R51 [place] [address] [facility] [id number] [address] [place] [address] Jul, [facility] [address] [facility] [id number] [address] [place] [address] Jul, [place] [address] [facility] [id number] [address] [place] [address] Jul, [place] [address] [facility] [id number] [address] [place] [address] Jul, Frequent headaches R51 ; Fib rocystic disease of left breast N60.12 ; Fibrocystic disease of right breast N60.11 and Diabetes E11.9 [place] [address] [place] [id number] [place] [address] Jul, [place] [address] [address] Jul, [place] [address] [facility] [id number] [address] 21 Jun, 2017 Exudative tonsillitis J03.90 [place] [address] [place] [id number] [address] [place] [address] 20 Jun, 2017 [place] [address] [address] 19 Jun, 2017 [place] [address] [place] [id number] [place] [address] 15 Jun, 2017 Mild persistent asthma witho ut complication J45.30 ; Chronic obstructive pulmonary disease, unspecified COPD type J44.9 and Exudative tonsillitis J03.90 [place] [address] [place] [id number] [address] [place] [address] 13 Jun, 2017 Encounter for immunization Z 23 [place] [address] [address] Jun, [facility] [address] [facility] [id number] [address] [place] [address] Jun, [facility] [address] [facility] [id number] [address] [place] [address] Jun, [facility] [address] [facility] [id number] [address] [place] [address] Jun, Tonsillitis J03.90 [facility] [address] [facility] [id number] [address] [place] [address] Jun, [facility] [address] [facility] [id number] [address] [place] [address] Jun, Acute non-recurrent maxillar y sinusitis J01.00 [facility] [address] [facility] [id number] [address] [place] [address] Jun, [facility] [address] [facility] [id number] [address] [place] [address] May, [facility] [address] [facility] [id number] [address] [place] [address] May, [facility] [address] [facility] [id number] [address] [place] [address] May, GERD (gastroesophageal reflu x disease) K21.9 [facility] [address] [facility] [id number] [address] [place] [address] May, Migraine without aura and wi thout status migrainosus, not intractable G43.009 [facility] [address] [facility] [id number] [address] [place] [address] May, [facility] [address] [facility] [id number] [address] [place] [address] May, [facility] [address] [facility] [id number] [address] [place] [address] May, Panlobular emphysema J43.1 a nd Acute non-recurrent maxillary sinusitis J01.00 [facility] [address] [id number] [address] [place] [address] May, Bipolar 1 disorder, depresse d, moderate F31.32 ; Panic disorder with agoraphobia F40.01 and Akathisia G25.71 [facility] [address] [facility] [id number] [address] [place] [address] Apr, [facility] [address] [facility] [id number] [address] [place] [address] Apr, [facility] [address] [facility] [id number] [address] [place] [address] Apr, Acute non-recurrent maxillar y sinusitis J01.00 [facility] [address] [facility] [id number] [address] [place] [address] Apr, Panlobular emphysema J43.1 [facility] [address] [facility] [id number] [address] [place] [address] Apr, [facility] [address] [facility] [id number] [address] [place] [address] Apr, Exudative tonsillitis J03.90 and Sore throat J02.9 [facility] [address] [facility] [id number] [address] [place] [address] 17 Mar, 2017 [facility] [address] [facility] [id number] [address] [place] [address] 15 Mar, 2017 Acute non-recurrent maxillar y sinusitis J01.00 [facility] [address] [facility] [id number] [address] [place] [address] Mar, [facility] [address] [facility] [id number] [address] [place] [id number] 09 Mar, 2017 Panlobular emphysema J43.1 a nd Diabetes E11.9 [facility] [address] [facility] [id number] [address] [place] [address] 06 Mar, 2017 [facility] [address] [facility] [id number] [address] [place] [address] 24 Feb, 2017 Wheezing R06.2 and Acute rec urrent pansinusitis J01.41 [facility] [address] [facility] [id number] [address] [place] [address] Feb, [facility] [address] [facility] [id number] [address] [place] [address] Feb, Acute non-recurrent maxillar y sinusitis J01.00 [facility] [address] [facility] [id number] [address] [place] [address] 16 Feb, 2017 Chronic obstructive pulmonar y disease, unspecified J44.9 [place] [address] [place] [id number] [address] [place] [address] Feb, Hypoxemia R09.02 and Chronic obstructive pulmonary disease, unspecified J44.9 [place] [address] [address] 28 Jan, 2017 Bipolar 1 disorder, depresse d, moderate F31.32 ; Panic disorder with agoraphobia F40.01 ; Chronic post-traumatic stress disorder (PTSD) F43.12 ; Diabetes E11.9 and Moderate persistent asthma without complication J45.40 [facility] [address] [place] [id number] [address] [place] [address] 22 Jan, 2017 [facility] [address] [place] [id number] [address] [place] [id number] 19 Jan, 2017 Acute non-recurrent maxillar y sinusitis J01.00 [facility] [address] [facility] [id number] [address] [place] [address] 18 Jan, 2017 [facility] [address] [place] [id number] [address] [place] [address] 18 Jan, 2017 [place] [address] [place] [id number] [address] [place] [address] 12 Jan, 2017 Moderate persistent asthma w [facility] complication J45.40 and Hypoxemia R09.02 [facility] [address] [id number] [address] [place] [address] Jan, Moderate persistent asthma w [facility] complication J45.40 and Hypoxemia R09.02 [facility] [address] [id number] [address] [place] [address] Jan, [facility] [address] [facility] [id number] [address] [place] [address] Dec, Acute non-recurrent maxillar y sinusitis J01.00 [facility] [address] [id number] [address] [place] [address] Dec, Chronic obstructive pulmonar y disease, unspecified J44.9 [facility] [address] [id number] [address] [place] [id number] Dec, [facility] [address] [facility] [id number] [address] [place] [id number] Dec, [facility] J[facility].30 and Other chronic pain G89.29 [facility] [address] [id number] [address] [place] [id number] Nov, [facility] [address] [id number] [address] [place] [id number] Nov, Acute non-recurrent maxillar y sinusitis J01.00 [facility] [address] [id number] [address] [place] [id number] Nov, [facility] [address] [facility] [id number] [address] [place] [id number] Nov, [facility] [address] [facility] [id number] [address] [place] [id number] Oct, [facility] [address] [facility] [id number] [address] [place] [id number] Oct, Bipolar 1 disorder, depresse d, partial remission F31.75 ; Panic disorder with agoraphobia F40.01 and Chronic post-traumatic stress disorder (PTSD) F43.12 [place] [address] [facility] [id number] [address] [place] [id number] Oct, Acute non-recurrent maxillar y sinusitis J01.00 [facility] [address] [facility] [id number] [address] [place] [id number] Oct, [facility] [address] [facility] [id number] [address] [place] [id number] Oct, Diabetes E11.9 [facility] [address] [facility] [id number] [address] [place] [id number] September, Diabetes E11.9 [facility] [address] [facility] [id number] [address] [place] [id number] September, Diabetes E11.9 and Sinus tac hycardia R00.0 [place] [address] [facility] [id number] [address] [place] [phone] September, [facility] [address] [place] [id number] [address] [place] [phone] September, [facility] [address] [place] [id number] [address] [place] [id number] Aug, Diabetes E11.9 and Lumbago w ith sciatica, right side M54.41 [facility] [address] [place] [id number] [address] [place] [id number] Aug, [facility] [address] [place] [id number] [place] [address] Jul, Bipolar 1 disorder, depresse d, moderate F31.32 ; Panic disorder with agoraphobia F40.01 and Chronic post-traumatic stress disorder (PTSD) F43.12 [facility] [address] [facility] [id number] [address] [place] [address] Jul, Sore throat J02.9 [facility] [address] [facility] [id number] [address] [place] [id number] 16 Jul, 2016 [facility] [address] [place] [id number] [address] [place] [id number] Jul, [facility] [address] [facility] [id number] [address] [place] [id number] Jul, [facility] [address] [facility] [id number] [address] [place] [id number] Jul, [facility] [address] [facility] [id number] [address] [place] [id number] Jul, Sore throat J02.9 and Pharyn gitis, unspecified etiology J02.9 [facility] [address] [id number] [address] [place] [id number] Jun, [facility] [address] [facility] [id number] [address] [place] [id number] Jun, Diabetes E11.9 [facility] [address] [facility] [id number] [address] [place] [id number] Jun, [facility] [address] [facility] [id number] [address] [place] [id number] Jun, [facility] [address] [facility] [id number] [address] [place] [id number] Jun, [facility] [address] [facility] [id number] [address] [place] [id number] Jun, [facility] [address] [facility] [id number] [address] [place] [id number] Jun, [facility] [address] [facility] [id number] [address] [place] [address] Jun, [facility] [address] [facility] [id number] [address] [place] [address] Jun, [facility] [address] [facility] [id number] [address] [place] [address] Jun, [facility] [address] [facility] [id number] [address] [place] [address] May, Diabetes E11.9 ; Other chron ic pain G89.29 ; Acute recurrent maxillary sinusitis J01.01 ; Bipolar I disorder with depression F31.9 and Anxiety disorder, unspecified F41.9 [place] [address] [id number] [address] [place] [address] May, [place] [address] [id number] [address] [place] [address] May, Diabetes E11.9 ; Bipolar I d isorder with depression F31.9 ; Anxiety disorder, unspecified F41.9 ; Other chronic pain G89.29 and Acute recurrent maxillary sinusitis J01.01 [place] [address] [id number] [address] [place] [address] May, [place] [address] [id number] [address] [place] [address] May, Attention deficit hyperactiv ity disorder (ADHD), predominantly inattentive type F90.0 [place] [address] [facility] [id number] [address] [place] [address] May, [place] [address] [facility] [id number] [address] [place] [address] Apr, Attention deficit hyperactiv ity disorder (ADHD), predominantly inattentive type F90.0 and Non-seasonal allergic rhinitis due to other allergic trigger J30.89 [place] [address] [facility] [id number] [address] [place] [address] Apr, Bipolar 1 disorder, depresse d, moderate F31.32 ; Panic disorder with agoraphobia F40.01 and Chronic post-traumatic stress disorder (PTSD) F43.12 [place] [address] [facility] [id number] [address] [place] [address] Apr, Dental examination Z01.20 [place] [address] [facility] [id number] [address] [place] [address] Mar, [place] [address] [facility] [id number] [address] [place] [address] Mar, [place] [address] [id number] [address] [place] [address] Mar, Bipolar I disorder with depr ession F31.9 and Anxiety disorder, unspecified F41.9 [facility] [address] [id number] [address] [place] [id number] 08 Mar, 2016 Panic disorder with agorapho syd F40.01 ; Bipolar 1 disorder, depressed, moderate F31.32 and Chronic post-traumatic stress disorder (PTSD) F43.12 [facility] [address] [id number] [address] [place] [address] Mar, [facility] [address] [id number] [address] [place] [address] 02 Mar, 2016 Dental caries K02.9 [facility] [address] [id number] [address] [place] [address] 24 Feb, 2016 Lumbago with sciatica, left side M54.42 ; Lumbago with sciatica, right side M54.41 and Other chronic pain G89.29 [facility] [address] [id number] [address] [place] [address] Feb, [facility] [address] [id number] [address] [place] [address] 14 Feb, 2016 [facility] [address] [id number] [address] [place] [id number] 13 Feb, 2016 Bipolar I disorder with depr ession F31.9 ; PTSD (post-traumatic stress disorder) F43.10 and Mood disorder F39 [facility] [address] [id number] [address] [place] [address] 13 Feb, 2016 [facility] [address] [id number] [address] [place] [address] 11 Feb, 2016 Dental examination Z01.20 [facility] [address] [id number] [address] [place] [address] 07 Feb, 2016 [facility] [address] [address] Feb, Acute bronchitis, unspecifie d organism J20.9 [place] [address] [address] Jan, Mood disorder F39 ; Migraine without aura and without status migrainosus, not intractable G43.009 ; Irritable bowel syndrome, unspecified type K58.9 ; Diabetes E11.9 and Encounter for immunization Z23 [place] [address] [address] Jan, [place] [address] [address] Jan, [place] [address] [address] Jan, [place] [address] [address] Jan, [place] [address] [address] Jan, [place] [address] [address] Dec, Bipolar I disorder with depr ession F31.9 ; PTSD (post-traumatic stress disorder) F43.10 and Panic disorder with agoraphobia F40.01 [place] [address] [address] Dec, Chronic obstructive pulmonar y disease, unspecified COPD type J44.9 ; Tremor R25.1 and Anxiety F41.9 [place] [address] [address] Dec, [place] [address] [address] Nov, Tremors of nervous system R2 5.1 and Cramping of feet R25.2 [place] [address] [address] Nov, [facility] [address] [facility] [id number] [address] [place] [address] Nov, [facility] [address] [id number] [address] [place] [address] Oct, Chronic obstructive pulmonar y disease, unspecified J44.9 [facility] [address] [facility] [id number] [address] [place] [address] Oct, [facility] [address] [id number] [address] [place] [address] Oct, Tremor R25.1 [place] [address] [facility] [id number] [address] [place] [address] Oct, Bipolar I disorder with depr ession F31.9 ; Diabetes E11.9 ; PTSD (post-traumatic stress disorder) F43.10 and Panic disorder with agoraphobia F40.01 [place] [address] [facility] [id number] [address] [place] [address] Oct, Mood disorder F39 [place] [address] [facility] [id number] [address] [place] [address] September, [facility] [address] [facility] [id number] [address] [place] [address] September, Diabetes E11.9 ; Bipolar I d isorder with depression F31.9 ; PTSD (post-traumatic stress disorder) F43.10 and Panic disorder with agoraphobia F40.01 [facility] [address] [id number] [address] [place] [address] September, Mood disorder F39 ; Schizoaf fective disorder, unspecified type F25.9 ; Arthritis M19.90 ; Tremor R25.1 ; Acute non-recurrent frontal sinusitis J01.10 and Blood in stool K92.1 [facility] [address] [facility] [id number] [address] [place] [address] September, [facility] [address] [id number] [address] [place] [address] September, Chronic obstructive pulmonar y disease, unspecified J44.9 [facility] [address] [id number] [address] [place] [address] September, Diabetes E11.9 [facility] [address] [id number] [address] [place] [address] Aug, Other bipolar disorder F31.8 9 and Anxiety disorder, unspecified F41.9 [facility] [address] [id number] [address] [place] [address] Aug, [facility] [address] [id number] [address] [place] [address] Aug, Diabetes E11.9 [facility] [address] [id number] [address] [place] [address] 18 Aug, 2015 [facility] [address] [id number] [address] [place] [address] 14 Aug, 2015 Diabetes E11.9 ; Fatigue R53 .83 and Dizziness R42 [facility] [address] [id number] [address] [place] [address] Aug, Other bipolar disorder F31.8 9 [facility] [address] [id number] [address] [place] [address] Aug, Generalized anxiety disorder F41.1 [facility] [address] [id number] [address] [place] [address] 07 Aug, 2015 Other bipolar disorder F31.8 9 and Anxiety disorder, unspecified F41.9 [facility] [address] [id number] [address] [place] [address] Aug, [facility] [address] [id number] [address] [place] [address] Jul, [facility] [address] [id number] [address] [place] [address] Jul, [facility] [address] [facility] [id number] [address] [place] [address] Jul, Bronchitis J40 [facility] [address] [facility] [id number] [address] [place] [address] Jul, Anxiety disorder F41.9 [facility] [address] [facility] [id number] [address] [place] [address] Jul, Other bipolar disorder F31.8 9 and Anxiety disorder, unspecified F41.9 [facility] [address] [place] [id number] [address] [place] [address] Jul, Other bipolar disorder F31.8 9 and Fibromyalgia M79.7 [facility] [address] [place] [id number] [address] [place] [address] Jul, [facility] [address] [place] [address] Jul, [facility] [address] [place] [address] Jul, [facility] [address] [place] [id number] [address] [place] [address] Jul, Other bipolar disorder F31.8 9 and Anxiety disorder, unspecified F41.9 [facility] [address] [place] [id number] [address] [place] [address] Jun, GERD (gastroesophageal reflu x disease) K21.9 [facility] [address] [facility] [id number] [address] [place] [address] Jun, [facility] [address] [place] [id number] [address] [place] [address] May, [facility] [address] [place] [id number] [address] [place] [address] May, Diabetes E11.9 ; Back pain M 54.9 ; GERD (gastroesophageal reflux disease) K21.9 ; Hypertension I10 and Peripheral neuropathy G62.9 [facility] [address] [place] [id number] [address] [place] [address] Mar, [facility] [address] [id number] [address] [place] [address] Mar, [facility] [address] [id number] [address] [place] [address] Mar, Acute sinusitis J01.90 and O titis media, left H66.92 [facility] [address] [id number] [address] [place] [address] Feb, [facility] [address] [id number] [address] [place] [address] Feb, [facility] [address] [id number] [address] [place] [address] Feb, [facility] [address] [facility] [id number] [address] [place] [address] Feb, [facility] [address] [id number] [address] [place] [address] Jan, [facility] [address] [id number] [address] [place] [address] Jan, Diabetes 250.00 and Back higinio n 724.5 [facility] [address] [id number] [address] [place] [address] Jan, [facility] [address] [id number] [address] [place] [address] Dec, Diabetes 250.00 ; Benign ess ential hypertension 401.1 and Allergic rhinitis 477.9 [facility] [address] [id number] [address] [place] [address] Dec, [facility] [address] [id number] [address] [place] [address] Dec, [facility] [address] [facility] [id number] [address] [place] [address] Dec, Psychosis 298.9 [facility] [address] [id number] [address] [place] [address] Dec, Medication side effect 995.2 0 and Generalized anxiety disorder 300.02 [facility] [address] [facility] [id number] [address] [place] [address] Dec, Acquired cognitive dysfuncti on 294.9 [facility] [address] [facility] [id number] [address] [place] [address] Dec, [facility] [address] [facility] [id number] [address] [place] [address] Dec, Unspecified myalgia and myos itis 729.1 and Generalized anxiety disorder 300.02 [facility] [address] [facility] [id number] [address] [place] [address] Nov, [facility] [address] [facility] [id number] [address] [place] [address] Nov, [facility] [address] [facility] [id number] [address] [place] [address] Nov, [facility] [address] [facility] [id number] [address] [place] [address] Nov, Upper respiratory infection 465.9 and Chronic airway obstruction, not elsewhere classified 496 [facility] [address] [facility] [id number] [address] [place] [address] Nov, Hyponatremia 276.1 [facility] [address] [facility] [id number] [address] [place] [address] Oct, [facility] [address] [facility] [id number] [address] [place] [address] Oct, [facility] [address] [id number] [address] [place] [address] Oct, [facility] [address] [facility] [id number] [address] [place] [address] Oct, [facility] [address] [facility] [id number] [address] [place] [address] Oct, Hyponatremia 276.1 [facility] [address] [id number] [address] [place] [address] Oct, [facility] [address] [id number] [address] [place] [id number] Oct, [facility] [address] [id number] [address] [place] [address] Oct, Generalized anxiety disorder 300.02 [facility] [address] [id number] [address] [place] [address] Oct, Generalized anxiety disorder 300.02 and Diabetes 250.00 [facility] [address] [id number] [address] [place] [address] Aug, [facility] [address] [id number] [address] [place] [address] Aug, [facility] [address] [id number] [address] [place] [address] Jul, [facility] [address] [id number] [address] [place] [address] Jul, [facility] [address] [id number] [address] [place] [address] Jun, [facility] [address] [id number] [address] [place] [address] Jun, [facility] [address] [id number] [address] [place] [address] Jun, [facility] [address] [id number] [address] [place] [address] Jun, [facility] [address] [id number] [address] [place] [address] Jun, [facility] [address] [id number] [address] [place] [address] May, [facility] [address] [id number] [address] [place] [address] May, [facility] [address] [id number] [address] [place] [address], [place] [id number] Apr, [facility] [address] [id number] [address] [place] [address], [place] [address] Apr, [facility] [address] [id number] [address] [place] [address], [place] [id number] Apr, [facility] [address] [id number] [address] [place] [address], [place] [id number] Apr, [facility] [address] [id number] [address] [place] [address], [place] [id number] Apr, [facility] [address] [id number] [address] [place] [address], [place] [id number] Apr, [facility] [address] [id number] [address] [place] [address], [place] [id number] Apr, [facility] [address] [id number] [address] [place] [address], [place] [id number] Apr, [facility] [address] [id number] [address] [place] [address], [place] [id number] Feb, [facility] [address] [id number] [address] [place] [address], [place] [id number] Feb, [facility] [address] [id number] [address] [place] [address], [place] [id number] Jan, [facility] [address] [id number] [address] [place] [id number] Jan, [facility] [address] [id number] [address] [place] [address], [place] [address] Dec, [facility] [address] [id number] [address] [place] [address], [place] [address] Dec, [facility] [address] [id number] [address] [place] [address], [place] [address] Dec, [facility] [address] [id number] [address] [place] [address], [place] [id number] Nov, [facility] [address] [id number] [address] [place] [address], [place] [address] Nov, [facility] [address] [id number] [address] [place] [address], [place] [address] Nov, [facility] [address] [id number] [address] [place] [address], [place] [address] Oct, [facility] [address] [id number] [address] [place] [address], [place] [address] Oct, [facility] [address] [id number] [address] [place] [address], [place] [address] Oct, [facility] [address] [id number] [address] [place] [address], [place] [address] September, [facility] [address] [id number] [address] [place] [address], [place] [address] September, [facility] [address] [id number] [address] [place] [address], [place] [address] September, [facility] [address] [id number] [address] [place] [address], [place] [address] Aug, [facility] [address] [id number] [address] [place] [address], [place] [address] Aug, [facility] [address] [id number] [address] [place] [address], [place] [address] Aug, [facility] [address] [id number] [address] [place] [address], [place] [address] 16 Aug, 2011 [facility] [address] [id number] [address] [place] [address], [place] [address] Jul, [facility] [address] [id number] [address] [place] [address], [place] [address] Jun, [facility] [address] [id number] [address] [place] [address], [place] [address] 14 Jun, 2011 [facility] [address] [id number] [address] [place] [address], [place] [address] 13 Jun, 2011 [facility] [address] [id number] [address] [place] [address], [place] [address] Jun, [facility] [address] [id number] [address] [place] [address], [place] [address] Jun, [facility] [address] [id number] [address] [place] [address], [place] [address] May, [facility] [address] [id number] [address] [place] [address], [place] [address] May, [facility] [address] [id number] [address] [place] [address], [place] [address] May, [facility] [address] [id number] [address] [place] [address], [place] [address] May, [facility] [address] [id number] [address] [place] [id number] Apr, [facility] [address] [id number] [address] [place] [address], [place] [address] Apr, [facility] [address] [id number] [address] [place] [phone] Apr, [facility] [address] [id number] [address] [place] [id number] Mar, [facility] [address] [id number] [address] [place] [id number] Mar, [facility] [address] [id number] [address] [place] [address], [place] [address] Mar, [facility] [address] [id number] [address] [place] [id number] 13 Feb, 2011 [facility] [address] [id number] [address] [place] [id number] 13 Feb, 2011 [facility] [address] [id number] [address] [place] [id number] 13 Feb, 2011 [facility] [address] [id number] [address] [place] [id number] 11 Nov, 2010 [facility] [address] [id number] [address] [place] [phone] 16 Sep, 2010 [facility] [address] [id number] [address] [place] [phone] 12 Aug, 2010 [facility] [address] [id number] [address] [place] [id number] 14 Jul, 2010 [facility] [address] [id number] [address] [place] [phone] May, [facility] [address] [id number] [address] [place] [id number] Apr, [facility] [address] [id number] [address] [place] [phone] Apr, [facility] [address] [id number] [address] [place] [phone] Apr, [facility] [address] [id number] [address] [place] [phone] Apr, [facility] [address] [id number] [address] [place] [phone] Apr, IMMUNIZATIONS No Known Immunizations SOCIAL HISTORY Never Assessed REASON FOR VISIT Call from patient PLAN OF CARE VITAL SIGNS MEDICATIONS Unknown [...]
--- OUTSIDE RECORDS SUMMARY | 2019-07-17 10:57 | XMS REPORT ---
Author Author Sujey GANDHI Organization [facility] Address [address] [place] [address] Care Team Providers Care Concrete Conveyor Operator Name Role Phone WHIT GANDHI Unavailable PROBLEMS Type Condition ICD9-CM Code SWS35-RD Code Onset Dates Condition S tatus SNOMED Code Problem Diabetes E11.9 Active 98199240 Problem GERD (gastroesophageal reflux disease) K21.9 Active 338852177 Problem Anxiety disorder, unspecified F41.9 Active 789843979 Problem Hypertension I10 Active 2121844 3 Problem Other bipolar disorder F31.89 Active 97980029 Problem Fibromyalgia M79.7 Active 4569992 7 Problem Panic disorder with agoraphobia F40.01 Active 41203049 Problem Chronic obstructive pulmonary disease, unspecified J44.9 Active 65673420 Problem Lumbago with sciatica, left side M54.42 Active 206113920 Problem Migraine without aura and without status migrain osus, not intractable G43.009 Active 137698875 Problem Lumbago with sciatica, right side M54.41 Active 941569841 Problem Fibrocystic disease of right breast N60.11 Active 76372377 Problem Other chronic pain G89.29 Active 8 9628304 Problem Fibrocystic disease of left breast N60.12 Active 04276115 Problem Irritable bowel syndrome with constipation K58.1 Active 376710812 Problem Arthritis M19.90 Active 8483698 Problem Abnormal mammogram of right breast R92.8 Active 517387857 Problem Daytime somnolence R40.0 Active 1 42477381180 Problem Bipolar affective disorder, remission status unspecified F31.9 Active 91362250 Problem Chronic post-traumatic stress disorder (PTSD) F43. 12 Active 326676864 Problem Bipolar 1 disorder, depressed, moderate F31.32 Active 83038735 Problem Schizoaffective disorder, bipolar type F25.0 Active 84530597 Problem Irritable bowel syndrome with both constipation and diarrh ea K58.2 Active 36139516 Problem Slow transit constipation K59.01 Acti ve 49261333 Problem Essential tremor G25.0 Active 609 044076 Problem Acute non-recurrent maxillary sinusitis J01.00 Active 83042600 Problem Back pain M54.9 Active 402794535 Problem Bipolar 1 disorder, depressed, partial remission F 31.75 Active 99923305 Problem Attention deficit hyperactiv ity disorder (ADHD), predominantly inattentive type F90.0 Active 39430208 Problem Bipolar I disorder with depression F31.9 Active 25092032 Problem Panlobular emphysema J43.1 Active 7185205 Problem Akathisia G25.71 Active 261045846 Problem Mild persistent asthma without complication J45.30 Active 156820670 Problem Moderate persistent asthma without complication J4 5.40 Active 940495722 ALLERGIES No Information ENCOUNTERS Encounter Location Date Diagnosis [place] [address] [address] Mar, [place] [address] [address] Jan, [place] [address] [address] Jan, Abnormal mammogram of right breast R92.8 [place] [address] [address] Dec, Daytime somnolence R40.0 and Right otitis media with effusion H65.91 [place] [address] [place] [address] Dec, [place] [address] [address] [place] [id number] [address] [place] [address] Dec, Cerebrovascular accident (CV A) due to occlusion of right cerebellar artery I63.541 [place] [address] [address] [place] [id number] [address] [place] [address] Dec, [place] [address] [address] [place] [id number] [address] [place] [address] Dec, [place] [address] [address] [place] [id number] [address] [place] [address] Nov, Bipolar 1 disorder, depresse d, partial remission F31.75 and Panic disorder with agoraphobia F40.01 [facility] [address] [id number] [address] [place] [address] Nov, Panlobular emphysema J43.1 [facility] [address] [id number] [address] [place] [address] Nov, Cerebrovascular accident (CV A) due to occlusion of right cerebellar artery I63.541 and Acute non-recurrent maxillary sinusitis J01.00 [facility] [address] [id number] [address] [place] [address] Nov, Panlobular emphysema J43.1 [facility] [address] [id number] [address] [place] [address] Nov, [facility] [address] [id number] [address] [place] [id number] Nov, [facility] [address] [id number] [address] [place] [id number] Nov, [facility] [address] [id number] [address] [place] [address] Nov, [facility] [address] [id number] [address] [place] [address] Nov, [facility] [address] [id number] [address] [place] [address] Nov, [facility] [address] [id number] [address] [place] [address] Nov, [facility] [address] [id number] [address] [place] [address] Nov, Mild persistent asthma witho ut complication J45.30 and Irritable bowel syndrome with both constipation and diarrhea K58.2 [facility] [address] [id number] [address] [place] [address] Nov, [facility] [address] [id number] [address] [place] [address] 30 Oct, 2017 [facility] [address] [id number] [address] [place] [address] Oct, [facility] [address] [id number] [address] [place] [address] Oct, Type 2 diabetes mellitus wit h diabetic neuropathy, unspecified whether snf insulin use E11.40 ; Diabetes E11.9 ; Slow transit constipation K59.01 ; Edema of both legs R60.0 and Dysfunction of right eustachian tube H69.81 [facility] [address] [id number] [address] [place] [address] Oct, Frequent headaches R51 [facility] [address] [id number] [address] [place] [address] Oct, [facility] [address] [id number] [address] [place] [id number] Oct, [facility] [address] [id number] [address] [place] [id number] Oct, [facility] [address] [id number] [address] [place] [address] Oct, [facility] [address] [id number] [address] [place] [address] Oct, [facility] [address] [id number] [address] [place] [address] Oct, [facility] [address] [id number] [address] [place] [address] Oct, [facility] [address] [facility] [id number] [address] [place] [address] Oct, [facility] [address] [facility] [id number] [address] [place] [address] September, Frequent headaches R51 [facility] [address] [id number] [address] [place] [address] September, Bilateral otitis media with effusion H65.93 ; Dizziness R42 and Essential tremor G25.0 [facility] [address] [facility] [id number] [address] [place] [id number] September, Chronic obstructive pulmonar y disease, unspecified COPD type J44.9 [facility] [address] [facility] [id number] [address] [place] [address] September, Chronic obstructive pulmonar y disease, unspecified COPD type J44.9 [facility] [address] [id number] [address] [place] [address] September, Migraine without aura and wi thout status migrainosus, not intractable G43.009 [facility] [address] [facility] [id number] [address] [place] [id number] September, [facility] [address] [place] [id number] [address] [place] [id number] September, [facility] [address] [place] [id number] [address] [place] [id number] September, [facility] [address] [place] [id number] [address] [place] [id number] September, Frequent headaches R51 [facility] [address] [facility] [id number] [address] [place] [address] Aug, [facility] [address] [place] [id number] [address] [place] [id number] Aug, Breast mass, right N63.10 [facility] [address] [facility] [id number] [address] [place] [address] Aug, Breast lump N63.0 [facility] [address] [facility] [id number] [address] [place] [id number] Aug, [facility] [address] [place] [id number] [address] [place] [address] Aug, Bipolar affective disorder, remission status unspecified F31.9 and Diabetes E11.9 [place] [address] [id number] [address] [place] [id number] 18 Aug, 2017 Diabetes E11.9 ; Schizoaffec tive disorder, bipolar type F25.0 ; Pharyngitis due to other organism J02.8 ; Panlobular emphysema J43.1 and Irritable bowel syndrome with both constipation and diarrhea K58.2 [place] [address] [address] [facility] [id number] [address] [place] [address] Aug, Abnormal mammogram R92.8 [place] [address] [id number] [address] [place] [id number] Aug, [place] [address] [facility] [id number] [place] [address] Aug, Bipolar 1 disorder, depresse d, moderate F31.32 ; Panic disorder with agoraphobia F40.01 and Chronic post-traumatic stress disorder (PTSD) F43.12 [place] [address] [address] [facility] [id number] [address] [place] [id number] Aug, [place] [address] [address] [facility] [id number] [address] [place] [id number] Aug, [place] [address] [address] [facility] [id number] [address] [place] [id number] Aug, [place] [address] [address] [facility] [id number] [address] [place] [id number] Jul, [place] [address] [address] [facility] [id number] [address] [place] [id number] Jul, Mild persistent asthma witho ut complication J45.30 [place] [address] [address] [facility] [id number] [address] [place] [id number] Jul, Mild persistent asthma witho ut complication J45.30 [place] [address] [address] [facility] [id number] [address] [place] [id number] Jul, Bipolar affective disorder, remission status unspecified F31.9 ; Diabetes E11.9 and Irritable bowel syndrome with constipation K58.1 [facility] [address] [id number] [address] [place] [id number] 13 Jul, 2017 [facility] [address] [id number] [address] [place] [id number] Jul, [facility] [address] [id number] [address] [place] [id number] Jul, Frequent headaches R51 [facility] [address] [id number] [address] [place] [id number] Jul, [facility] [address] [id number] [address] [place] [address] Jul, [facility] [address] [id number] [address] [place] [id number] Jul, [facility] [address] [facility] [id number] [address] [place] [id number] Jul, Frequent headaches R51 ; Fib rocystic disease of left breast N60.12 ; Fibrocystic disease of right breast N60.11 and Diabetes E11.9 [facility] [address] [id number] [address] [place] [id number] Jul, [facility] [address] [facility] [id number] [address] [place] [id number] Jul, [facility] [address] [facility] [id number] [address] [place] [address] Jun, Exudative tonsillitis J03.90 [facility] [address] [id number] [address] [place] [id number] Jun, [facility] [address] [facility] [id number] [address] [place] [id number] Jun, [facility] [address] [facility] [id number] [address] [place] [id number] 15 Jun, 2017 Mild persistent asthma witho ut complication J45.30 ; Chronic obstructive pulmonary disease, unspecified COPD type J44.9 and Exudative tonsillitis J03.90 [facility] [address] [facility] [id number] [address] [place] [id number] 13 Jun, 2017 Encounter for immunization Z 23 [facility] [address] [facility] [id number] [address] [place] [id number] 12 Jun, 2017 [facility] [address] [facility] [id number] [address] [place] [address] Jun, [facility] [address] [facility] [id number] [address] [place] [id number] Jun, [facility] [address] [facility] [id number] [address] [place] [id number] 06 Jun, 2017 Tonsillitis J03.90 [facility] [address] [facility] [id number] [address] [place] [id number] 05 Jun, 2017 [facility] [address] [facility] [id number] [address] [place] [id number] Jun, Acute non-recurrent maxillar y sinusitis J01.00 [facility] [address] [facility] [id number] [address] [place] [id number] 02 Jun, 2017 [facility] [address] [facility] [id number] [address] [place] [address] May, [facility] [address] [facility] [id number] [address] [place] [address] May, [facility] [address] [facility] [id number] [address] [place] [address] May, GERD (gastroesophageal reflu x disease) K21.9 [facility] [address] [facility] [id number] [address] [place] [id number] May, Migraine without aura and wi thout status migrainosus, not intractable G43.009 [facility] [address] [facility] [id number] [address] [place] [address] May, [facility] [address] [facility] [id number] [address] [place] [address] May, [facility] [address] [id number] [address] [place] [address] May, Panlobular emphysema J43.1 a nd Acute non-recurrent maxillary sinusitis J01.00 [facility] [address] [facility] [id number] [address] [place] [address] May, Bipolar 1 disorder, depresse d, moderate F31.32 ; Panic disorder with agoraphobia F40.01 and Akathisia G25.71 [facility] [address] [id number] [address] [place] [address] Apr, [facility] [address] [facility] [id number] [address] [place] [address] Apr, [facility] [address] [facility] [id number] [address] [place] [id number] Apr, Acute non-recurrent maxillar y sinusitis J01.00 [facility] [address] [id number] [address] [place] [id number] Apr, Panlobular emphysema J43.1 [facility] [address] [facility] [id number] [address] [place] [id number] 04 Apr, 2017 [facility] [address] [facility] [id number] [address] [place] [id number] 04 Apr, 2017 Exudative tonsillitis J03.90 and Sore throat J02.9 [facility] [address] [id number] [address] [place] [id number] 17 Mar, 2017 [facility] [address] [facility] [id number] [address] [place] [id number] 15 Mar, 2017 Acute non-recurrent maxillar y sinusitis J01.00 [facility] [address] [facility] [id number] [address] [place] [id number] Mar, [facility] [address] [facility] [id number] [address] [place] [address] Mar, Panlobular emphysema J43.1 a nd Diabetes E11.9 [facility] [address] [facility] [id number] [address] [place] [id number] Mar, [facility] [address] [facility] [id number] [address] [place] [id number] 24 Feb, 2017 Wheezing R06.2 and Acute rec urrent pansinusitis J01.41 [facility] [address] [facility] [id number] [address] [place] [address] Feb, [facility] [address] [facility] [id number] [place] [address] Feb, Acute non-recurrent maxillar y sinusitis J01.00 [place] [address] [address] [place] [id number] [place] [address] Feb, Chronic obstructive pulmonar y disease, unspecified J44.9 [facility] [address] [place] [id number] [address] [place] [address] Feb, Hypoxemia R09.02 and Chronic obstructive pulmonary disease, unspecified J44.9 [facility] [address] [place] [id number] [place] [address] 28 Jan, 2017 Bipolar 1 disorder, depresse d, moderate F31.32 ; Panic disorder with agoraphobia F40.01 ; Chronic post-traumatic stress disorder (PTSD) F43.12 ; Diabetes E11.9 and Moderate persistent asthma without complication J45.40 [facility] [address] [place] [id number] [address] [place] [id number] Jan, [facility] [address] [id number] 19 Jan, 2017 Acute non-recurrent maxillar y sinusitis J01.00 [place] [address] [address] [place] [id number] [address] [place] [id number] 18 Jan, 2017 [facility] [address] [id number] 18 Jan, 2017 [facility] [address] [id number] [address] [place] [id number] Jan, Moderate persistent asthma w ithout complication J45.40 and Hypoxemia R09.02 [facility] [address] [id number] [address] [place] [id number] Jan, Moderate persistent asthma w ithout complication J45.40 and Hypoxemia R09.02 [facility] [address] [id number] [address] [place] [id number] Jan, [facility] [address] [id number] [address] [place] [id number] Dec, Acute non-recurrent maxillar y sinusitis J01.00 [facility] [address] [id number] [address] [place] [id number] Dec, Chronic obstructive pulmonar y disease, unspecified J44.9 [facility] [address] [id number] [address] [place] [id number] Dec, [facility] [address] [id number] [address] [place] [id number] Dec, Mild persistent asthma witho ut complication J45.30 and Other chronic pain G89.29 [facility] [address] [id number] [address] [place] [address] Nov, [facility] [address] [id number] [address] [place] [id number] Nov, Acute non-recurrent maxillar y sinusitis J01.00 [facility] [address] [id number] [address] [place] [id number] Nov, [facility] [address] [id number] [address] [place] [id number] Nov, [facility] [address] [id number] [address] [place] [id number] Oct, [facility] [address] [id number] [address] [place] [id number] Oct, Bipolar 1 disorder, depresse d, partial remission F31.75 ; Panic disorder with agoraphobia F40.01 and Chronic post-traumatic stress disorder (PTSD) F43.12 [facility] [address] [id number] [address] [place] [id number] Oct, Acute non-recurrent maxillar y sinusitis J01.00 [facility] [address] [id number] [address] [place] [id number] Oct, [facility] [address] [id number] [address] [place] [id number] Oct, Diabetes E11.9 [facility] [address] [id number] [address] [place] [id number] September, Diabetes E11.9 [facility] [address] [id number] [address] [place] [id number] September, Diabetes E11.9 and Sinus tac hycardia R00.0 [facility] [address] [id number] [address] [place] [id number] September, [facility] [address] [id number] [address] [place] [id number] September, [facility] [address] [id number] [address] [place] [id number] Aug, Diabetes E11.9 and Lumbago w ith sciatica, right side M54.41 [facility] [address] [id number] [address] [place] [id number] Aug, [facility] [address] [id number] [address] [place] [id number] Jul, Bipolar 1 disorder, depresse d, moderate F31.32 ; Panic disorder with agoraphobia F40.01 and Chronic post-traumatic stress disorder (PTSD) F43.12 [facility] [address] [id number] [address] [place] [phone] Jul, Sore throat J02.9 [facility] [address] [id number] [address] [place] [id number] 16 Jul, 2016 [facility] [address] [id number] [address] [place] [id number] Jul, [facility] [address] [id number] [address] [place] [id number] Jul, [facility] [address] [id number] [address] [place] [id number] Jul, [facility] [address] [id number] [address] [place] [id number] Jul, Sore throat J02.9 and Pharyn gitis, unspecified etiology J02.9 [facility] [address] [id number] [address] [place] [id number] Jun, [facility] [address] [id number] [address] [place] [id number] Jun, Diabetes E11.9 [facility] [address] [id number] [address] [place] [id number] Jun, [facility] [address] [id number] [address] [place] [id number] Jun, [facility] [address] [id number] [address] [place] [id number] Jun, [facility] [address] [id number] [address] [place] [id number] Jun, [facility] [address] [id number] [address] [place] [id number] Jun, [facility] [address] [id number] [address] [place] [id number] 15 Jun, 2016 [facility] [address] [id number] [address] [place] [id number] Jun, [facility] [address] [facility] [id number] [address] [place] [id number] Jun, [facility] [address] [place] [id number] [address] [place] [id number] May, Diabetes E11.9 ; Other chron ic pain G89.29 ; Acute recurrent maxillary sinusitis J01.01 ; Bipolar I disorder with depression F31.9 and Anxiety disorder, unspecified F41.9 [place] [address] [place] [id number] [address] [place] [address] May, [place] [address] [facility] [id number] [address] [place] [address] May, Diabetes E11.9 ; Bipolar I d isorder with depression F31.9 ; Anxiety disorder, unspecified F41.9 ; Other chronic pain G89.29 and Acute recurrent maxillary sinusitis J01.01 [place] [address] [place] [id number] [address] [place] [address] May, [place] [address] [place] [id number] [address] [place] [id number] May, Attention deficit hyperactiv ity disorder (ADHD), predominantly inattentive type F90.0 [place] [address] [place] [id number] [address] [place] [id number] May, [place] [address] [place] [id number] [address] [place] [id number] Apr, Attention deficit hyperactiv ity disorder (ADHD), predominantly inattentive type F90.0 and Non-seasonal allergic rhinitis due to other allergic trigger J30.89 [place] [address] [facility] [id number] [address] [place] [id number] 15 Apr, 2016 Bipolar 1 disorder, depresse d, moderate F31.32 ; Panic disorder with agoraphobia F40.01 and Chronic post-traumatic stress disorder (PTSD) F43.12 [place] [address] [place] [id number] [address] [place] [id number] 06 Apr, 2016 Dental examination Z01.20 [facility] [address] [id number] [address] [place] [id number] Mar, [facility] [address] [id number] [address] [place] [id number] Mar, [facility] [address] [id number] [address] [place] [id number] Mar, Bipolar I disorder with depr ession F31.9 and Anxiety disorder, unspecified F41.9 [facility] [address] [id number] [address] [place] [id number] 08 Mar, 2016 Panic disorder with agorapho syd F40.01 ; Bipolar 1 disorder, depressed, moderate F31.32 and Chronic post-traumatic stress disorder (PTSD) F43.12 [place] [address] [id number] [address] [place] [id number] Mar, [place] [address] [id number] [address] [place] [id number] Mar, Dental caries K02.9 [facility] [address] [id number] [address] [place] [id number] 24 Feb, 2016 Lumbago with sciatica, left side M54.42 ; Lumbago with sciatica, right side M54.41 and Other chronic pain G89.29 [facility] [address] [id number] [address] [place] [id number] Feb, [facility] [address] [id number] [address] [place] [id number] 14 Feb, 2016 [facility] [address] [id number] [address] [place] [id number] Feb, Bipolar I disorder with depr ession F31.9 ; PTSD (post-traumatic stress disorder) F43.10 and Mood disorder F39 [facility] [address] [id number] [address] [place] [address] Feb, [facility] [address] [id number] [address] [place] [id number] Feb, Dental examination Z01.20 [facility] [id number] [place] [id number] 07 Feb, 2016 [facility] [address] [place] [id number] [address] [place] [address] Feb, Acute bronchitis, unspecifie d organism J20.9 [facility] [address] [address] Jan, Mood disorder F39 ; Migraine without aura and without status migrainosus, not intractable G43.009 ; Irritable bowel syndrome, unspecified type K58.9 ; Diabetes E11.9 and Encounter for immunization Z23 [facility] [address] [id number] 15 Jan, 2016 [facility] [address] [address] Jan, [facility] [address] [address] Jan, [facility] [address] [address] Jan, [facility] [address] [address] Jan, [facility] [address] [address] Dec, Bipolar I disorder with depr ession F31.9 ; PTSD (post-traumatic stress disorder) F43.10 and Panic disorder with agoraphobia F40.01 [facility] [address] [address] Dec, Chronic obstructive pulmonar y disease, unspecified COPD type J44.9 ; Tremor R25.1 and Anxiety F41.9 [facility] [address] [address] Dec, [facility] [address] [facility] [id number] [address] [place] [address] Nov, Tremors of nervous system R2 5.1 and Cramping of feet R25.2 [facility] [address] [id number] [address] [place] [id number] Nov, [facility] [address] [facility] [id number] [address] [place] [id number] Nov, [facility] [address] [facility] [id number] [address] [place] [address] Oct, Chronic obstructive pulmonar y disease, unspecified J44.9 [place] [address] [facility] [id number] [address] [place] [address] Oct, [place] [address] [facility] [id number] [address] [place] [address] Oct, Tremor R25.1 [place] [address] [place] [id number] [address] [place] [address] Oct, Bipolar I disorder with depr ession F31.9 ; Diabetes E11.9 ; PTSD (post-traumatic stress disorder) F43.10 and Panic disorder with agoraphobia F40.01 [place] [address] [place] [id number] [address] [place] [id number] Oct, Mood disorder F39 [place] [address] [place] [id number] [address] [place] [address] September, [place] [address] [place] [id number] [address] [place] [id number] September, Diabetes E11.9 ; Bipolar I d isorder with depression F31.9 ; PTSD (post-traumatic stress disorder) F43.10 and Panic disorder with agoraphobia F40.01 [place] [address] [facility] [id number] [address] [place] [address] September, Mood disorder F39 ; Schizoaf fective disorder, unspecified type F25.9 ; Arthritis M19.90 ; Tremor R25.1 ; Acute non-recurrent frontal sinusitis J01.10 and Blood in stool K92.1 [facility] [address] [id number] [address] [place] [id number] September, [facility] [address] [facility] [id number] [address] [place] [address] September, Chronic obstructive pulmonar y disease, unspecified J44.9 [facility] [address] [facility] [id number] [address] [place] [address] September, Diabetes E11.9 [facility] [address] [facility] [id number] [address] [place] [address] Aug, Other bipolar disorder F31.8 9 and Anxiety disorder, unspecified F41.9 [facility] [address] [facility] [id number] [address] [place] [id number] Aug, [facility] [address] [facility] [id number] [address] [place] [id number] Aug, Diabetes E11.9 [facility] [address] [facility] [id number] [address] [place] [id number] Aug, [facility] [address] [facility] [id number] [address] [place] [address] Aug, Diabetes E11.9 ; Fatigue R53 .83 and Dizziness R42 [facility] [address] [facility] [id number] [address] [place] [address] Aug, Other bipolar disorder F31.8 9 [facility] [address] [id number] [address] [place] [address] Aug, Generalized anxiety disorder F41.1 [facility] [address] [facility] [id number] [address] [place] [address] Aug, Other bipolar disorder F31.8 9 and Anxiety disorder, unspecified F41.9 [facility] [address] [facility] [id number] [address] [place] [id number] Aug, [facility] [address] [id number] [address] [place] [id number] 29 Jul, 2015 [facility] [address] [id number] [address] [place] [id number] Jul, [facility] [address] [id number] [address] [place] [address] Jul, Bronchitis J40 [facility] [address] [facility] [id number] [address] [place] [address] Jul, Anxiety disorder F41.9 [facility] [address] [id number] [address] [place] [id number] Jul, Other bipolar disorder F31.8 9 and Anxiety disorder, unspecified F41.9 [facility] [address] [facility] [id number] [address] [place] [id number] Jul, Other bipolar disorder F31.8 9 and Fibromyalgia M79.7 [facility] [address] [facility] [id number] [address] [place] [id number] Jul, [facility] [address] [facility] [id number] [address] [place] [id number] Jul, [facility] [address] [facility] [id number] [address] [place] [address] Jul, [facility] [address] [facility] [id number] [address] [place] [address] Jul, Other bipolar disorder F31.8 9 and Anxiety disorder, unspecified F41.9 [facility] [address] [id number] [address] [place] [id number] Jun, GERD (gastroesophageal reflu x disease) K21.9 [facility] [address] [id number] [address] [place] [id number] Jun, [facility] [address] [facility] [id number] [address] [place] [id number] May, [facility] [address] [facility] [id number] [address] [place] [address] May, Diabetes E11.9 ; Back pain M 54.9 ; GERD (gastroesophageal reflux disease) K21.9 ; Hypertension I10 and Peripheral neuropathy G62.9 [facility] [address] [facility] [id number] [address] [place] [id number] Mar, [facility] [address] [facility] [id number] [address] [place] [address] Mar, [facility] [address] [facility] [id number] [place] [address] Mar, Acute sinusitis J01.90 and O titis media, left H66.92 [facility] [address] [facility] [id number] [address] [place] [id number] Feb, [facility] [address] [place] [id number] [address] [place] [id number] Feb, [facility] [address] [place] [id number] [address] [place] [address] Feb, [facility] [address] [place] [id number] [address] [place] [id number] Feb, [facility] [address] [place] [id number] [address] [place] [id number] Jan, [facility] [address] [place] [id number] [address] [place] [address] Jan, Diabetes 250.00 and Back higinio n 724.5 [facility] [address] [facility] [id number] [address] [place] [address] Jan, [facility] [address] [place] [id number] [address] [place] [id number] Dec, Diabetes 250.00 ; Benign ess ential hypertension 401.1 and Allergic rhinitis 477.9 [facility] [address] [facility] [id number] [address] [place] [address] Dec, [facility] [address] [place] [id number] [address] [place] [id number] Dec, [facility] [address] [facility] [id number] [address] [place] [address] Dec, Psychosis 298.9 [facility] [address] [facility] [id number] [address] [place] [address] Dec, Medication side effect 995.2 0 and Generalized anxiety disorder 300.02 [facility] [address] [facility] [id number] [address] [place] [address] Dec, Acquired cognitive dysfuncti on 294.9 [facility] [address] [facility] [id number] [address] [place] [id number] Dec, [facility] [address] [facility] [id number] [address] [place] [address] Dec, Unspecified myalgia and myos itis 729.1 and Generalized anxiety disorder 300.02 [facility] [address] [facility] [id number] [address] [place] [address] Nov, [facility] [address] [facility] [id number] [address] [place] [address] Nov, [facility] [address] [facility] [id number] [address] [place] [id number] Nov, [facility] [address] [facility] [id number] [address] [place] [address] Nov, Upper respiratory infection 465.9 and Chronic airway obstruction, not elsewhere classified 496 [facility] [address] [facility] [id number] [address] [place] [address] Nov, Hyponatremia 276.1 [facility] [address] [facility] [id number] [address] [place] [id number] Oct, [facility] [address] [facility] [id number] [address] [place] [address] Oct, [facility] [address] [facility] [id number] [address] [place] [id number] Oct, [facility] [address] [id number] [address] [place] [id number] Oct, [facility] [address] [facility] [id number] [address] [place] [address] Oct, Hyponatremia 276.1 [facility] [address] [facility] [id number] [address] [place] [id number] Oct, [facility] [address] [id number] [address] [place] [id number] Oct, [facility] [address] [facility] [id number] [address] [place] [id number] Oct, Generalized anxiety disorder 300.02 [facility] [address] [facility] [id number] [address] [place] [id number] Oct, Generalized anxiety disorder 300.02 and Diabetes 250.00 [facility] [address] [id number] [address] [place] [id number] Aug, [facility] [address] [facility] [id number] [address] [place] [id number] Aug, [facility] [address] [facility] [id number] [address] [place] [id number] Jul, [facility] [address] [facility] [id number] [address] [place] [id number] Jul, [facility] [address] [id number] [address] [place] [id number] Jun, [facility] [address] [id number] [address] [place] [id number] Jun, [facility] [address] [id number] [address] [place] [id number] Jun, [facility] [address] [facility] [id number] [address] [place] [id number] Jun, [facility] [address] [facility] [id number] [address] [place] [id number] Jun, [facility] [address] [id number] [address] [place] [address], [place] [phone] May, [facility] [address] [id number] [address] [place] [address], [place] [address] May, [facility] [address] [id number] [address] [place] [address], [place] [address] Apr, [facility] [address] [id number] [address] [place] [address], [place] [id number] Apr, [facility] [address] [id number] [address] [place] [address], [place] [id number] Apr, [facility] [address] [id number] [address] [place] [address], [place] [address] Apr, [facility] [address] [id number] [address] [place] [address], [place] [address] Apr, [facility] [address] [id number] [address] [place] [address], [place] [address] Apr, [facility] [address] [id number] [address] [place] [address], [place] [address] Apr, [facility] [address] [id number] [address] [place] [address], [place] [id number] Apr, [facility] [address] [id number] [address] [place] [address], [place] [address] Feb, [facility] [address] [id number] [address] [place] [address], [place] [address] Feb, [facility] [address] [id number] [address] [place] [address], [place] [address] Jan, [facility] [address] [id number] [address] [place] [address], [place] [address] Jan, [facility] [address] [id number] [address] [place] [address], [place] [id number] Dec, [facility] [address] [id number] [address] [place] [address], [place] [id number] Dec, [facility] [address] [id number] [address] [place] [address], [place] [id number] Dec, [facility] [address] [id number] [address] [place] [address], [place] [address] Nov, [facility] [address] [id number] [address] [place] [address], [place] [address] Nov, [facility] [address] [id number] [address] [place] [address], [place] [id number] Nov, [facility] [address] [id number] [address] [place] [address], [place] [id number] Oct, [facility] [address] [id number] [address] [place] [address], [place] [id number] Oct, [facility] [address] [id number] [address] [place] [address], [place] [id number] Oct, [facility] [address] [id number] [address] [place] [address], [place] [id number] September, [facility] [address] [id number] [address] [place] [address], [place] [id number] September, [facility] [address] [id number] [address] [place] [address], [place] [id number] September, [facility] [address] [id number] [address] [place] [address], [place] [id number] Aug, [facility] [address] [id number] [address] [place] [address], [place] [id number] Aug, [facility] [address] [id number] [address] [place] [address], [place] [id number] Aug, [facility] [address] [id number] [address] [place] [address], [place] [id number] Aug, [facility] [address] [id number] [address] [place] [address], [place] [id number] Jul, [facility] [address] [id number] [address] [place] [address], [place] [id number] Jun, [facility] [address] [id number] [address] [place] [address], [place] [id number] 14 Jun, 2011 [facility] [address] [id number] [address] [place] [address], [place] [id number] 13 Jun, 2011 [facility] [address] [id number] [address] [place] [address], [place] [id number] Jun, [facility] [address] [id number] [address] [place] [address], [place] [id number] Jun, [facility] [address] [id number] [address] [place] [address], [place] [id number] May, [facility] [address] [id number] [address] [place] [address], [place] [id number] May, [facility] [address] [id number] [address] [place] [address], [place] [id number] May, [facility] [address] [id number] [address] [place] [address], [place] [id number] May, [facility] [address] [id number] [address] [place] [address], [place] [id number] Apr, [facility] [address] [id number] [address] [place] [address], [place] [id number] Apr, [facility] [address] [id number] [address] [place] [address], [place] [id number] Apr, [facility] [address] [id number] [address] [place] [address], [place] [id number] Mar, [facility] [address] [id number] [address] [place] [address], [place] [id number] Mar, [facility] [address] [id number] [address] [place] [address], [place] [id number] Mar, [facility] [address] [id number] [address] [place] [id number] 13 Feb, 2011 [facility] [address] [id number] [address] [place] [id number] 13 Feb, 2011 [facility] [address] [id number] [address] [place] [id number] 13 Feb, 2011 [facility] [address] [id number] [address] [place] [id number] Nov, [facility] [address] [id number] [address] [place] [id number] 16 Sep, 2010 [facility] [address] [id number] [address] [place] [id number] Aug, [facility] [address] [id number] [address] [place] [id number] Jul, [facility] [address] [id number] [address] [place], [place] [id number] May, [facility] [address] [id number] [address] [place] [id number] Apr, [facility] [address] [id number] [address] [place] [id number] Apr, [facility] [address] [id number] [address] [place] [id number] Apr, [facility] [address] [id number] [address] [place] [phone] Apr, [facility] [address] [id number] [address] [place] [phone] Apr, IMMUNIZATIONS No Known Immunizations SOCIAL HISTORY Never Assessed REASON FOR VISIT FYI only PLAN OF CARE VITAL SIGNS MEDICATIONS Unknown [...]
--- OUTSIDE RECORDS SUMMARY | 2019-07-17 10:57 | XMS REPORT ---
Author Author Sujey GANDHI Organization [facility] Address [address] [place] [address] Care Team Providers Care Bioinformatician Name Role Phone WHIT GANDHI Unavailable PROBLEMS Type Condition ICD9-CM Code [id number] Code Onset Dates Condition S tatus SNOMED Code Problem Diabetes E11.9 Active 22997828 Problem GERD (gastroesophageal reflux disease) K21.9 Active 296032595 Problem Anxiety disorder, unspecified F41.9 Active 068621554 Problem Hypertension I10 Active 5407712 3 Problem Other bipolar disorder F31.89 Active 71079535 Problem Fibromyalgia M79.7 Active 2390704 7 Problem Panic disorder with agoraphobia F40.01 Active 38402408 Problem Chronic obstructive pulmonary disease, unspecified J44.9 Active 57323671 Problem Lumbago with sciatica, left side M54.42 Active 042722635 Problem Migraine without aura and without status migrain osus, not intractable G43.009 Active 002400212 Problem Lumbago with sciatica, right side M54.41 Active 005899543 Problem Fibrocystic disease of right breast N60.11 Active 56851741 Problem Other chronic pain G89.29 Active 8 9321738 Problem Fibrocystic disease of left breast N60.12 Active 55287225 Problem Irritable bowel syndrome with constipation K58.1 Active 755514635 Problem Arthritis M19.90 Active 1478495 Problem Abnormal mammogram of right breast R92.8 Active 032977571 Problem Daytime somnolence R40.0 Active 1 34815555810 Problem Bipolar affective disorder, remission status unspecified F31.9 Active 94603115 Problem Chronic post-traumatic stress disorder (PTSD) F43. 12 Active 020687455 Problem Bipolar 1 disorder, depressed, moderate F31.32 Active 55660300 Problem Schizoaffective disorder, bipolar type F25.0 Active 64599409 Problem Irritable bowel syndrome with both constipation and diarrh ea K58.2 Active 02004554 Problem Slow transit constipation K59.01 Acti ve 11834638 Problem Essential tremor G25.0 Active 609 750235 Problem Acute non-recurrent maxillary sinusitis J01.00 Active 62100683 Problem Back pain M54.9 Active 272554263 Problem Bipolar 1 disorder, depressed, partial remission F 31.75 Active 58932313 Problem Attention deficit hyperactiv ity disorder (ADHD), predominantly inattentive type F90.0 Active 41538944 Problem Bipolar I disorder with depression F31.9 Active 13520416 Problem Panlobular emphysema J43.1 Active 8368196 Problem Akathisia G25.71 Active 081412725 Problem Mild persistent asthma without complication J45.30 Active 251277570 Problem Moderate persistent asthma without complication J4 5.40 Active 931133355 ALLERGIES Substance Reaction Event Type Date Status Penicillin V Potassium Unknown Drug Allergy Jan, Activ e Effexor anaphylaxis Drug Allergy Jan, Active Darvocet-N 50 Unknown Drug Allergy Jan, Active Cefdinir Swelling Drug Allergy Jan, Active Benadryl vomiting/swelling Drug Allergy Jan, Active ENCOUNTERS Encounter Location Date Diagnosis [facility] [id number] [place] [phone] Mar, [place] [id number] [place] [phone] Feb, [facility] [id number] [place] [phone] Jan, [facility] [id number] [place] [phone] Jan, [facility] [id number] [place] [id number] Jan, Chronic obstructive pulmonar y disease, unspecified J44.9 and Anxiety disorder, unspecified F41.9 [facility] [id number] [place] [address] Jan, Hypertension I10 ; Fibromyal medhat M79.7 and Lumbago with sciatica, left side M54.42 [facility] [id number] [place] [id number] 26 Jan, 2018 [facility] [address] [id number] [address] [place] [address] Jan, Cerebrovascular accident (CV A) due to occlusion of right cerebellar artery I63.541 [facility] [address] [id number] [address] [place] [id number] 19 Jan, 2018 [facility] [address] [facility] [place] [id number] [address] [place] [id number] 13 Jan, 2018 Arthritis M19.90 [place] [address] [facility] [place] [id number] [address] [place] [id number] 07 Jan, 2018 [place] [address] [facility] [place] [id number] [address] [place] [phone] 04 Jan, 2018 Abnormal mammogram of right breast R92.8 [place] [id number] [place] [address] Dec, Daytime somnolence R40.0 and Right otitis media with effusion H65.91 [place] [address] [facility] [place] [id number] [address] [place] [address] Dec, [place] [address] [facility] [place] [id number] [address] [place] [address] Dec, Cerebrovascular accident (CV A) due to occlusion of right cerebellar artery I63.541 [place] [address] [facility] [place] [id number] [address] [place] [address] Dec, [place] [address] [id number] [address] [place] [address] Dec, [place] [address] [facility] [place] [id number] [address] [place] [address] Nov, Bipolar 1 disorder, depresse d, partial remission F31.75 and Panic disorder with agoraphobia F40.01 [place] [address] [facility] [place] [id number] [address] [place] [phone] Nov, Panlobular emphysema J43.1 [facility] [address] [id number] [address] [place] [address] Nov, Cerebrovascular accident (CV A) due to occlusion of right cerebellar artery I63.541 and Acute non-recurrent maxillary sinusitis J01.00 [facility] [address] [id number] [address] [place] [id number] Nov, Panlobular emphysema J43.1 [facility] [address] [id number] [address] [place] [id number] Nov, [facility] [address] [id number] [address] [place] [phone] Nov, [facility] [address] [id number] [address] [place] [phone] Nov, [facility] [address] [id number] [address] [place] [phone] Nov, [facility] [address] [id number] [address] [place] [phone] Nov, [facility] [address] [id number] [address] [place] [phone] Nov, [facility] [address] [id number] [address] [place] [address] Nov, [facility] [address] [id number] [address] [place] [address] Nov, Mild persistent asthma witho ut complication J45.30 and Irritable bowel syndrome with both constipation and diarrhea K58.2 [facility] [address] [id number] [address] [place] [phone] Nov, [facility] [address] [id number] [address] [place] [id number] Oct, [facility] [address] [id number] [address] [place] [phone] Oct, [facility] [address] [id number] [address] [place] [address] Oct, Type 2 diabetes mellitus wit h diabetic neuropathy, unspecified whether penitentiary insulin use E11.40 ; Diabetes E11.9 ; Slow transit constipation K59.01 ; Edema of both legs R60.0 and Dysfunction of right eustachian tube H69.81 [facility] [address] [id number] [address] [place] [phone] Oct, Frequent headaches R51 [facility] [address] [id number] [address] [place] [id number] Oct, [facility] [address] [id number] [address] [place] [phone] Oct, [facility] [address] [facility] [place] [id number] [address] [place] [phone] Oct, [facility] [address] [facility] [place] [id number] [address] [place] [phone] Oct, [facility] [address] [facility] [place] [id number] [address] [place] [phone] Oct, [facility] [address] [facility] [place] [id number] [address] [place] [address] Oct, [facility] [address] [facility] [place] [id number] [address] [place] [address] Oct, [facility] [address] [facility] [place] [id number] [address] [place] [address] Oct, [facility] [address] [facility] [place] [id number] [address] [place] [phone] September, Frequent headaches R51 [facility] [address] [facility] [place] [id number] [address] [place] [address] September, Bilateral otitis media with effusion H65.93 ; Dizziness R42 and Essential tremor G25.0 [facility] [address] [facility] [place] [id number] [address] [place] [phone] September, Chronic obstructive pulmonar y disease, unspecified COPD type J44.9 [facility] [address] [id number] [address] [place] [address] September, Chronic obstructive pulmonar y disease, unspecified COPD type J44.9 [facility] [address] [facility] [place] [id number] [address] [place] [address] September, Migraine without aura and wi thout status migrainosus, not intractable G43.009 [facility] [address] [facility] [place] [id number] [address] [place] [address] September, [facility] [address] [facility] [place] [id number] [address] [place] [address] September, [facility] [address] [facility] [place] [id number] [address] [place] [address] September, [facility] [address] [facility] [place] [id number] [address] [place] [address] September, Frequent headaches R51 [facility] [address] [facility] [place] [id number] [address] [place] [phone] Aug, [facility] [address] [facility] [place] [id number] [address] [place] [id number] Aug, Breast mass, right N63.10 [facility] [address] [facility] [place] [id number] [address] [place] [phone] Aug, Breast lump N63.0 [facility] [address] [facility] [place] [id number] [address] [place] [phone] Aug, [facility] [address] [facility] [place] [id number] [address] [place] [phone] Aug, Bipolar affective disorder, remission status unspecified F31.9 and Diabetes E11.9 [facility] [address] [facility] [place] [id number] [address] [place] [phone] Aug, Diabetes E11.9 ; Schizoaffec tive disorder, bipolar type F25.0 ; Pharyngitis due to other organism J02.8 ; Panlobular emphysema J43.1 and Irritable bowel syndrome with both constipation and diarrhea K58.2 [facility] [address] [id number] [address] [place] [phone] Aug, Abnormal mammogram R92.8 [facility] [address] [id number] [address] [place] [id number] Aug, [facility] [address] [id number] [address] [place] [phone] Aug, Bipolar 1 disorder, depresse d, moderate F31.32 ; Panic disorder with agoraphobia F40.01 and Chronic post-traumatic stress disorder (PTSD) F43.12 [facility] [address] [id number] [address] [place] [phone] Aug, [place] [address] [id number] [address] [place] [phone] Aug, [facility] [address] [facility] [place] [id number] [address] [place] [phone] Aug, [facility] [address] [id number] [address] [place] [id number] Jul, [facility] [address] [id number] [address] [place] [address] Jul, Mild persistent asthma witho ut complication J45.30 [facility] [address] [facility] [place] [id number] [address] [place] [address] Jul, Mild persistent asthma witho ut complication J45.30 [facility] [address] [id number] [address] [place] [address] Jul, Bipolar affective disorder, remission status unspecified F31.9 ; Diabetes E11.9 and Irritable bowel syndrome with constipation K58.1 [facility] [address] [id number] [address] [place] [address] Jul, [facility] [address] [facility] [place] [id number] [address] [place] [address] Jul, [facility] [address] [facility] [place] [id number] [address] [place] [phone] 08 Jul, 2017 Frequent headaches R51 [place] [id number] [place] [phone] 07 Jul, 2017 [facility] [address] [facility] [place] [id number] [address] [place] [phone] Jul, [place] [address] [address] Jul, [place] [address] [facility] [place] [id number] [place] [address] Jul, Frequent headaches R51 ; Fib rocystic disease of left breast N60.12 ; Fibrocystic disease of right breast N60.11 and Diabetes E11.9 [place] [address] [address] Jul, [place] [address] [address] Jul, [place] [address] [address] 21 Jun, 2017 Exudative tonsillitis J03.90 [place] [address] [address] 20 Jun, 2017 [place] [address] [address] 19 Jun, 2017 [place] [address] [phone] 15 Jun, 2017 Mild persistent asthma witho ut complication J45.30 ; Chronic obstructive pulmonary disease, unspecified COPD type J44.9 and Exudative tonsillitis J03.90 [place] [id number] [place] [address] 13 Jun, 2017 Encounter for immunization Z 23 [place] [address] [address] Jun, [facility] [address] [facility] [place] [id number] [address] [place] [phone] Jun, [facility] [address] [facility] [place] [id number] [address] [place] [address] Jun, [facility] [address] [facility] [place] [id number] [address] [place] [address] Jun, Tonsillitis J03.90 [facility] [address] [facility] [place] [id number] [address] [place] [address] Jun, [facility] [address] [facility] [place] [id number] [address] [place] [address] Jun, Acute non-recurrent maxillar y sinusitis J01.00 [facility] [address] [facility] [place] [id number] [address] [place] [address] Jun, [facility] [address] [facility] [place] [id number] [place] [address] May, [facility] [address] [facility] [place] [id number] [address] [place] [address] May, [facility] [address] [facility] [place] [id number] [address] [place] [address] May, GERD (gastroesophageal reflu x disease) K21.9 [facility] [address] [facility] [place] [id number] [address] [place] [address] May, Migraine without aura and wi thout status migrainosus, not intractable G43.009 [facility] [address] [facility] [place] [id number] [address] [place] [address] May, [facility] [address] [facility] [place] [id number] [address] [place] [address] May, [facility] [address] [facility] [place] [id number] [address] [place] [address] May, Panlobular emphysema J43.1 a nd Acute non-recurrent maxillary sinusitis J01.00 [facility] [address] [id number] [address] [place] [address] May, Bipolar 1 disorder, depresse d, moderate F31.32 ; Panic disorder with agoraphobia F40.01 and Akathisia G25.71 [facility] [address] [id number] [address] [place] [address] Apr, [facility] [address] [id number] [address] [place] [address] Apr, [facility] [address] [facility] [place] [id number] [address] [place] [phone] Apr, Acute non-recurrent maxillar y sinusitis J01.00 [facility] [address] [facility] [place] [id number] [address] [place] [address] 07 Apr, 2017 Panlobular emphysema J43.1 [facility] [address] [facility] [place] [id number] [address] [place] [address] Apr, [facility] [address] [facility] [place] [id number] [address] [place] [id number] 04 Apr, 2017 Exudative tonsillitis J03.90 and Sore throat J02.9 [facility] [address] [facility] [place] [id number] [address] [place] [id number] 17 Mar, 2017 [facility] [address] [facility] [place] [id number] [address] [place] [phone] 15 Mar, 2017 Acute non-recurrent maxillar y sinusitis J01.00 [facility] [address] [id number] [address] [place] [address] 13 Mar, 2017 [facility] [address] [facility] [place] [id number] [address] [place] [phone] 09 Mar, 2017 Panlobular emphysema J43.1 a nd Diabetes E11.9 [facility] [address] [facility] [place] [id number] [address] [place] [address] 06 Mar, 2017 [facility] [address] [facility] [place] [id number] [address] [place] [id number] 24 Feb, 2017 Wheezing R06.2 and Acute rec urrent pansinusitis J01.41 [facility] [address] [facility] [place] [id number] [address] [place] [address] Feb, [facility] [id number] [place] [phone] Feb, Acute non-recurrent maxillar y sinusitis J01.00 [facility] [id number] [place] [id number] 16 Feb, 2017 Chronic obstructive pulmonar y disease, unspecified J44.9 [place] [address] [address] Feb, Hypoxemia R09.02 and Chronic obstructive pulmonary disease, unspecified J44.9 [place] [address] [address] 28 Jan, 2017 Bipolar 1 disorder, depresse d, moderate F31.32 ; Panic disorder with agoraphobia F40.01 ; Chronic post-traumatic stress disorder (PTSD) F43.12 ; Diabetes E11.9 and Moderate persistent asthma without complication J45.40 [place] [address] [address] 22 Jan, 2017 [place] [address] [phone] 19 Jan, 2017 Acute non-recurrent maxillar y sinusitis J01.00 [facility] [address] [facility] [place] [id number] [address] [place] [phone] 18 Jan, 2017 [place] [address] [address] 18 Jan, 2017 [place] [id number] [place] [phone] Jan, Moderate persistent asthma w summa health complication J45.40 and Hypoxemia R09.02 [facility] [address] [place] [address] Jan, Moderate persistent asthma w summa health complication J45.40 and Hypoxemia R09.02 [facility] [address] [facility] [place] [id number] [address] [place] [address] Jan, [facility] [address] [facility] [id number] [address] [place] [address] Dec, Acute non-recurrent maxillar y sinusitis J01.00 [facility] [address] [facility] [place] [id number] [address] [place] [id number] Dec, Chronic obstructive pulmonar y disease, unspecified J44.9 [facility] [address] [facility] [place] [id number] [address] [place] [phone] Dec, [facility] [address] [place] [id number] [address] [place] [id number] Dec, Mild persistent [facility] J45.30 and Other chronic pain G89.29 [facility] [address] [facility] [place] [id number] [address] [place] [phone] Nov, [facility] [address] [facility] [place] [id number] [address] [place] [id number] Nov, Acute non-recurrent maxillar y sinusitis J01.00 [facility] [address] [facility] [place] [facility] [id number] [address] [place] [phone] Nov, [facility] [address] [facility] [place] [id number] [address] [place] [phone] Nov, [facility] [address] [place] [facility] [id number] [address] [place] [phone] Oct, [facility] [address] [facility] [id number] [address] [place] [phone] Oct, Bipolar 1 disorder, depresse d, partial remission F31.75 ; Panic disorder with agoraphobia F40.01 and Chronic post-traumatic stress disorder (PTSD) F43.12 [place] [address] [id number] [address] [place] [phone] Oct, Acute non-recurrent maxillar y sinusitis J01.00 [facility] [address] [facility] [id number] [address] [place] [phone] Oct, [facility] [address] [facility] [id number] [address] [place] [phone] Oct, Diabetes E11.9 [facility] [address] [facility] [id number] [address] [place] [phone] September, Diabetes E11.9 [facility] [address] [facility] [id number] [address] [place] [address] September, Diabetes E11.9 and Sinus tac hycardia R00.0 [facility] [address] [facility] [id number] [address] [place] [phone] September, [place] [address] [place] [id number] [address] [place] [phone] September, [facility] [address] [facility] [id number] [address] [place] [phone] Aug, Diabetes E11.9 and Lumbago w ith sciatica, right side M54.41 [place] [address] [place] [id number] [address] [place] [phone] Aug, [facility] [address] [place] [id number] [address] [place] [id number] Jul, Bipolar 1 disorder, depresse d, moderate F31.32 ; Panic disorder with agoraphobia F40.01 and Chronic post-traumatic stress disorder (PTSD) F43.12 [place] [address] [facility] [id number] [address] [place] [phone] Jul, Sore throat J02.9 [facility] [address] [facility] [id number] [address] [place] [phone] Jul, [facility] [address] [place] [id number] [address] [place] [phone] Jul, [facility] [address] [id number] [address] [place] [phone] Jul, [facility] [address] [id number] [address] [place] [id number] Jul, [facility] [address] [id number] [address] [place] [id number] Jul, Sore throat J02.9 and Pharyn gitis, unspecified etiology J02.9 [facility] [address] [id number] [address] [place] [phone] Jun, [facility] [address] [id number] [address] [place] [phone] Jun, Diabetes E11.9 [facility] [address] [id number] [address] [place] [id number] Jun, [facility] [address] [id number] [address] [place] [id number] Jun, [facility] [address] [id number] [address] [place] [phone] Jun, [facility] [address] [id number] [address] [place] [phone] Jun, [facility] [address] [id number] [address] [place] [phone] Jun, [facility] [address] [id number] [address] [place] [phone] Jun, [facility] [address] [id number] [address] [place] [phone] Jun, [facility] [address] [id number] [address] [place] [id number] Jun, [facility] [address] [facility] [id number] [address] [place] [phone] May, Diabetes E11.9 ; Other chron ic pain G89.29 ; Acute recurrent maxillary sinusitis J01.01 ; Bipolar I disorder with depression F31.9 and Anxiety disorder, unspecified F41.9 [facility] [address] [id number] [address] [place] [phone] May, [facility] [address] [id number] [address] [place] [phone] May, Diabetes E11.9 ; Bipolar I d isorder with depression F31.9 ; Anxiety disorder, unspecified F41.9 ; Other chronic pain G89.29 and Acute recurrent maxillary sinusitis J01.01 [place] [address] [id number] [address] [place] [address] May, [place] [address] [id number] [address] [place] [phone] May, Attention deficit hyperactiv ity disorder (ADHD), predominantly inattentive type F90.0 [place] [address] [facility] [id number] [address] [place] [phone] May, [place] [address] [facility] [id number] [address] [place] [phone] Apr, Attention deficit hyperactiv ity disorder (ADHD), predominantly inattentive type F90.0 and Non-seasonal allergic rhinitis due to other allergic trigger J30.89 [place] [address] [place] [id number] [address] [place] [phone] Apr, Bipolar 1 disorder, depresse d, moderate F31.32 ; Panic disorder with agoraphobia F40.01 and Chronic post-traumatic stress disorder (PTSD) F43.12 [place] [address] [facility] [id number] [address] [place] [phone] Apr, Dental examination Z01.20 [place] [address] [facility] [id number] [address] [place] [address] Mar, [place] [address] [facility] [id number] [address] [place] [phone] Mar, [place] [address] [id number] [address] [place] [phone] 17 Mar, 2016 Bipolar I disorder with depr ession F31.9 and Anxiety disorder, unspecified F41.9 [facility] [address] [id number] [address] [place] [phone] 08 Mar, 2016 Panic disorder with agorapho syd F40.01 ; Bipolar 1 disorder, depressed, moderate F31.32 and Chronic post-traumatic stress disorder (PTSD) F43.12 [facility] [address] [id number] [address] [place] [phone] 04 Mar, 2016 [facility] [address] [id number] [address] [place] [phone] 02 Mar, 2016 Dental caries K02.9 [facility] [address] [id number] [address] [place] [phone] 24 Feb, 2016 Lumbago with sciatica, left side M54.42 ; Lumbago with sciatica, right side M54.41 and Other chronic pain G89.29 [facility] [address] [id number] [address] [place] [phone] 17 Feb, 2016 [facility] [address] [id number] [address] [place] [id number] 14 Feb, 2016 [facility] [address] [id number] [address] [place] [phone] 13 Feb, 2016 Bipolar I disorder with depr ession F31.9 ; PTSD (post-traumatic stress disorder) F43.10 and Mood disorder F39 [facility] [address] [id number] [address] [place] [phone] 13 Feb, 2016 [facility] [address] [id number] [address] [place] [phone] 11 Feb, 2016 Dental examination Z01.20 [facility] [address] [id number] [address] [place] [phone] 07 Feb, 2016 [facility] [address] [id number] [address] [place] [id number] Feb, Acute bronchitis, unspecifie d organism J20.9 [place] [address] [place] [id number] [place] [phone] Jan, Mood disorder F39 ; Migraine without aura and without status migrainosus, not intractable G43.009 ; Irritable bowel syndrome, unspecified type K58.9 ; Diabetes E11.9 and Encounter for immunization Z23 [place] [address] [place] [id number] [place] [phone] Jan, [place] [address] [place] [id number] [address] [place] [phone] Jan, [place] [address] [phone] Jan, [place] [address] [phone] Jan, [place] [address] [phone] Jan, [place] [address] [place] [id number] [place] [phone] Dec, Bipolar I disorder with depr ession F31.9 ; PTSD (post-traumatic stress disorder) F43.10 and Panic disorder with agoraphobia F40.01 [place] [address] [place] [id number] [address] [place] [phone] Dec, Chronic obstructive pulmonar y disease, unspecified COPD type J44.9 ; Tremor R25.1 and Anxiety F41.9 [place] [address] [place] [id number] [address] [place] [phone] Dec, [place] [address] [place] [id number] [place] [phone] Nov, Tremors of nervous system R2 5.1 and Cramping of feet R25.2 [place] [address] [place] [id number] [place] [phone] Nov, [facility] [address] [facility] [id number] [address] [place] [phone] Nov, [facility] [address] [facility] [id number] [address] [place] [address] Oct, Chronic obstructive pulmonar y disease, unspecified J44.9 [facility] [address] [facility] [id number] [address] [place] [phone] Oct, [facility] [address] [facility] [id number] [address] [place] [phone] Oct, Tremor R25.1 [place] [address] [facility] [id number] [place] [phone] Oct, Bipolar I disorder with depr ession F31.9 ; Diabetes E11.9 ; PTSD (post-traumatic stress disorder) F43.10 and Panic disorder with agoraphobia F40.01 [place] [address] [facility] [id number] [address] [place] [phone] Oct, Mood disorder F39 [place] [address] [place] [id number] [address] [place] [phone] September, [place] [address] [place] [id number] [address] [place] [phone] September, Diabetes E11.9 ; Bipolar I d isorder with depression F31.9 ; PTSD (post-traumatic stress disorder) F43.10 and Panic disorder with agoraphobia F40.01 [place] [address] [facility] [id number] [address] [place] [phone] September, Mood disorder F39 ; Schizoaf fective disorder, unspecified type F25.9 ; Arthritis M19.90 ; Tremor R25.1 ; Acute non-recurrent frontal sinusitis J01.10 and Blood in stool K92.1 [facility] [address] [facility] [id number] [address] [place] [phone] September, [place] [address] [facility] [id number] [address] [place] [phone] September, Chronic obstructive pulmonar y disease, unspecified J44.9 [facility] [address] [id number] [address] [place] [id number] September, Diabetes E11.9 [facility] [address] [id number] [address] [place] [phone] Aug, Other bipolar disorder F31.8 9 and Anxiety disorder, unspecified F41.9 [facility] [address] [id number] [address] [place] [phone] Aug, [facility] [address] [id number] [address] [place] [phone] Aug, Diabetes E11.9 [facility] [address] [id number] [address] [place] [phone] 18 Aug, 2015 [facility] [address] [id number] [address] [place] [phone] 14 Aug, 2015 Diabetes E11.9 ; Fatigue R53 .83 and Dizziness R42 [facility] [address] [id number] [address] [place] [phone] 13 Aug, 2015 Other bipolar disorder F31.8 9 [facility] [address] [id number] [address] [place] [phone] 07 Aug, 2015 Generalized anxiety disorder F41.1 [facility] [address] [id number] [address] [place] [phone] Aug, Other bipolar disorder F31.8 9 and Anxiety disorder, unspecified F41.9 [facility] [address] [id number] [address] [place] [phone] Aug, [facility] [address] [id number] [address] [place] [phone] Jul, [facility] [address] [id number] [address] [place] [phone] Jul, [facility] [address] [place] [id number] [address] [place] [phone] Jul, Bronchitis J40 [facility] [address] [place] [id number] [address] [place] [phone] Jul, Anxiety disorder F41.9 [facility] [address] [place] [id number] [address] [place] [id number] Jul, Other bipolar disorder F31.8 9 and Anxiety disorder, unspecified F41.9 [facility] [address] [place] [id number] [place] [phone] Jul, Other bipolar disorder F31.8 9 and Fibromyalgia M79.7 [facility] [address] [phone] Jul, [facility] [address] [place] [id number] [place] [phone] Jul, [facility] [address] [phone] Jul, [facility] [address] [phone] Jul, Other bipolar disorder F31.8 9 and Anxiety disorder, unspecified F41.9 [facility] [address] [place] [id number] [place] [phone] Jun, GERD (gastroesophageal reflu x disease) K21.9 [facility] [address] [place] [id number] [address] [place] [phone] Jun, [facility] [address] [place] [id number] [place] [phone] May, [facility] [address] [address] May, Diabetes E11.9 ; Back pain M 54.9 ; GERD (gastroesophageal reflux disease) K21.9 ; Hypertension I10 and Peripheral neuropathy G62.9 [facility] [address] [phone] Mar, [facility] [address] [id number] [address] [place] [phone] Mar, [facility] [address] [id number] [address] [place] [id number] Mar, Acute sinusitis J01.90 and O titis media, left H66.92 [facility] [address] [id number] [address] [place] [phone] Feb, [facility] [address] [id number] [address] [place] [id number] Feb, [facility] [address] [id number] [address] [place] [phone] Feb, [facility] [address] [facility] [id number] [address] [place] [phone] Feb, [facility] [address] [facility] [id number] [address] [place] [phone] Jan, [facility] [address] [id number] [address] [place] [phone] Jan, Diabetes 250.00 and Back higinio n 724.5 [facility] [address] [facility] [id number] [address] [place] [phone] Jan, [facility] [address] [id number] [address] [place] [id number] Dec, Diabetes 250.00 ; Benign ess ential hypertension 401.1 and Allergic rhinitis 477.9 [facility] [address] [id number] [address] [place] [id number] Dec, [facility] [address] [id number] [address] [place] [phone] Dec, [facility] [address] [facility] [id number] [address] [place] [id number] Dec, Psychosis 298.9 [facility] [address] [facility] [id number] [address] [place] [id number] Dec, Medication side effect 995.2 0 and Generalized anxiety disorder 300.02 [facility] [address] [id number] [address] [place] [phone] Dec, Acquired cognitive dysfuncti on 294.9 [facility] [address] [id number] [address] [place] [id number] Dec, [facility] [address] [facility] [id number] [address] [place] [phone] Dec, Unspecified myalgia and myos itis 729.1 and Generalized anxiety disorder 300.02 [facility] [address] [facility] [id number] [address] [place] [phone] Nov, [facility] [address] [facility] [id number] [address] [place] [phone] Nov, [facility] [address] [facility] [id number] [address] [place] [phone] Nov, [facility] [address] [id number] [address] [place] [phone] Nov, Upper respiratory infection 465.9 and Chronic airway obstruction, not elsewhere classified 496 [facility] [address] [facility] [id number] [address] [place] [phone] Nov, Hyponatremia 276.1 [facility] [address] [id number] [address] [place] [phone] Oct, [facility] [address] [facility] [id number] [address] [place] [phone] Oct, [facility] [address] [id number] [address] [place] [phone] Oct, [facility] [address] [facility] [id number] [address] [place] [phone] Oct, [facility] [address] [facility] [id number] [address] [place] [phone] Oct, Hyponatremia 276.1 [facility] [address] [id number] [address] [place] [id number] 03 Oct, 2014 [facility] [address] [id number] [address] [place] [id number] Oct, [facility] [address] [id number] [address] [place] [id number] Oct, Generalized anxiety disorder 300.02 [facility] [address] [id number] [address] [place] [phone] Oct, Generalized anxiety disorder 300.02 and Diabetes 250.00 [facility] [address] [id number] [address] [place] [phone] Aug, [facility] [address] [id number] [address] [place] [phone] Aug, [facility] [address] [id number] [address] [place] [phone] Jul, [facility] [address] [id number] [address] [place] [phone] Jul, [facility] [address] [id number] [address] [place] [id number] Jun, [facility] [address] [id number] [address] [place] [phone] Jun, [facility] [address] [id number] [address] [place] [address], [place] [address] Jun, [facility] [address] [id number] [address] [place] [phone] Jun, [facility] [address] [id number] [address] [place] [phone] Jun, [facility] [address] [id number] [address] [place] [phone] May, [facility] [address] [id number] [address] [place] [phone] May, [facility] [address] [id number] [address] [place] [address], [place] [address] Apr, [facility] [address] [id number] [address] [place] [address], [place] [phone] Apr, [facility] [address] [id number] [address] [place] [address], [place] [address] Apr, [facility] [address] [id number] [address] [place] [address], [place] [address] Apr, [facility] [address] [id number] [address] [place] [address], [place] [address] Apr, [facility] [address] [id number] [address] [place] [address], [place] [address] Apr, [facility] [address] [id number] [address] [place] [address], [place] [address] Apr, [facility] [address] [id number] [address] [place] [address], [place] [address] Apr, [facility] [address] [id number] [address] [place] [address], [place] [address] Feb, [facility] [address] [id number] [address] [place] [address], [place] [address] Feb, [facility] [address] [id number] [address] [place] [address], [place] [address] Jan, [facility] [address] [id number] [address] [place] [address], [place] [address] Jan, [facility] [address] [id number] [address] [place] [address], [place] [address] Dec, [facility] [address] [id number] [address] [place] [address], [place] [address] Dec, [facility] [address] [id number] [address] [place] [address], [place] [address] Dec, [facility] [address] [id number] [address] [place] [address], [place] [address] Nov, [facility] [address] [id number] [address] [place] [address], [place] [address] Nov, [facility] [address] [id number] [address] [place] [address], [place] [address] Nov, [facility] [address] [id number] [address] [place] [address], [place] [address] Oct, [facility] [address] [id number] [address] [place] [address], [place] [address] Oct, [facility] [address] [id number] [address] [place] [address], [place] [address] Oct, [facility] [address] [id number] [address] [place] [address], [place] [address] September, [facility] [address] [id number] [address] [place] [address], [place] [address] September, [facility] [address] [id number] [address] [place] [address], [place] [id number] September, [facility] [address] [id number] [address] [place] [address], [place] [address] Aug, [facility] [address] [id number] [address] [place] [address], [place] [address] Aug, [facility] [address] [id number] [address] [place] [address], [place] [address] Aug, [facility] [address] [id number] [address] [place] [address], [place] [address] 16 Aug, 2011 [facility] [address] [id number] [address] [place] [address], [place] [address] Jul, [facility] [address] [id number] [address] [place] [address], [place] [address] Jun, [facility] [address] [id number] [address] [place] [address], [place] [address] 14 Jun, 2011 [facility] [address] [id number] [address] [place] [address], [place] [address] 13 Jun, 2011 [facility] [address] [id number] [address] [place] [address], [place] [address] 07 Jun, 2011 [facility] [address] [id number] [address] [place] [address], [place] [address] 03 Jun, 2011 [facility] [address] [id number] [address] [place] [address], [place] [address] 13 May, 2011 [facility] [address] [id number] [address] [place] [address], [place] [address] May, [facility] [address] [id number] [address] [place] [address], [place] [address] May, [facility] [address] [id number] [address] [place] [address], [place] [address] May, [facility] [address] [id number] [address] [place] [address], [place] [address] Apr, [facility] [address] [id number] [address] [place] [address], [place] [address] Apr, [facility] [address] [id number] [address] [place] [address], [place] [address] Apr, [facility] [address] [id number] [address] [place] [address], [place] [address] Mar, [facility] [address] [id number] [address] [place] [address], [place] [address] Mar, [facility] [address] [id number] [address] [place] [address], [place] [address] Mar, [facility] [address] [id number] [address] [place] [address], [place] [address] 13 Feb, 2011 [facility] [address] [id number] [address] [place] [address], [place] [address] 13 Feb, 2011 [facility] [address] [id number] [address] [place] [address], [place] [address] 13 Feb, 2011 [facility] [address] [id number] [address] [place] [id number] 11 Nov, 2010 [facility] [address] [id number] [address] [place] [id number] 16 Sep, 2010 [facility] [address] [id number] [address] [place] [id number] 12 Aug, 2010 [facility] [address] [id number] [address] [place] [phone] 14 Jul, 2010 [facility] [address] [id number] [address] [place] [phone] May, [facility] [address] [id number] [address] [place] [id number] Apr, [facility] [address] [id number] [address] [place] [id number] Apr, [facility] [address] [id number] [address] [place] [phone] Apr, [facility] [address] [id number] [address] [place] [phone] Apr, [facility] [address] [id number] [address] [place] [id number] Apr, IMMUNIZATIONS No Known Immunizations SOCIAL HISTORY Never Assessed REASON FOR VISIT med request PLAN OF CARE VITAL SIGNS MEDICATIONS Medication Instructions Dosage Frequency Start Date End Date Duration S tatus Ibuprofen 600 MG TAKE ONE TABLET BY MOUTH THREE TIMES DAILY 33 Active RESULTS No Results PROCEDURES No Known [...]
--- OUTSIDE RECORDS SUMMARY | 2019-07-17 10:58 | XMS REPORT ---
Author Author Sujey GANDHI Organization [facility] Address [address] [place] [address] Care Team Providers Care Repacker Name Role Phone WHTI GANDHI Unavailable PROBLEMS Type Condition ICD9-CM Code WMT48-TX Code Onset Dates Condition S tatus SNOMED Code Problem GERD (gastroesophageal reflux disease) K21.9 Active 332704049 Problem Back pain M54.9 Active 623679083 Problem Hypertension I10 Active 9297936 3 Problem Diabetes E11.9 Active 76269589 Problem Anxiety disorder, unspecified F41.9 Active 060925317 Problem Other bipolar disorder F31.89 Active 10456084 Problem Fibromyalgia M79.7 Active 4764067 7 Problem Panic disorder with agoraphobia F40.01 Active 20149445 Problem Chronic obstructive pulmonary disease, unspecified J44.9 Active 67413975 Problem Akathisia G25.71 Active 836257093 Problem Lumbago with sciatica, left side M54.42 Active 505213309 Problem Migraine without aura and without status migrain osus, not intractable G43.009 Active 346822078 Problem Lumbago with sciatica, right side M54.41 Active 161409419 Problem Fibrocystic disease of right breast N60.11 Active 10997785 Problem Arthritis M19.90 Active 4297918 Problem Fibrocystic disease of left breast N60.12 Active 76346022 Problem Daytime somnolence R40.0 Active 1 83013458510 Problem Slow transit constipation K59.01 Acti ve 53775709 Problem Chronic post-traumatic stress disorder (PTSD) F43. 12 Active 583290575 Problem Bipolar 1 disorder, depressed, moderate F31.32 Active 31518811 Problem Other chronic pain G89.29 Active 8 1048857 Problem Irritable bowel syndrome with both constipation and diarrh ea K58.2 Active 54479339 Problem Irritable bowel syndrome with constipation K58.1 Active 226313060 Problem Essential tremor G25.0 Active 609 967353 Problem Schizoaffective disorder, bipolar type F25.0 Active 49587906 Problem Bipolar I disorder with depression F31.9 Active 75445279 Problem Acute non-recurrent maxillary sinusitis J01.00 Active 49473941 Problem Bipolar affective disorder, remission status unspecified F31.9 Active 37525401 Problem Attention deficit hyperactiv ity disorder (ADHD), predominantly inattentive type F90.0 Active 19623206 Problem Moderate persistent asthma without complication J4 5.40 Active 123055674 Problem Panlobular emphysema J43.1 Active 6027860 Problem Bipolar 1 disorder, depressed, partial remission F 31.75 Active 78232193 Problem Mild persistent asthma without complication J45.30 Active 332043291 ALLERGIES Substance Reaction Event Type Date Status Penicillin V Potassium Unknown Drug Allergy Nov, Activ e Effexor anaphylaxis Drug Allergy Nov, Active Darvocet-N 50 Unknown Drug Allergy Nov, Active Cefdinir Swelling Drug Allergy Nov, Active Benadryl vomiting/swelling Drug Allergy Nov, Active ENCOUNTERS Encounter Location Date Diagnosis [place] [id number] [facility] [id number] [address] [place] [phone] Mar, [facility] [address] [facility] [id number] [address] [place] [phone] Jan, [place] [address] [facility] [id number] [address] [place] [id number] Dec, Daytime somnolence R40.0 and Right otitis media with effusion H65.91 [facility] [address] [facility] [id number] [address] [place] [id number] Dec, [facility] [address] [facility] [id number] [address] [place] [phone] Dec, Cerebrovascular accident (CV A) due to occlusion of right cerebellar artery I63.541 [facility] [address] [facility] [id number] [address] [place] [address] Dec, [facility] [address] [facility] [id number] [address] [place] [phone] Dec, [facility] [address] [id number] [address] [place] [phone] Nov, Bipolar 1 disorder, depresse d, partial remission F31.75 and Panic disorder with agoraphobia F40.01 [facility] [address] [id number] [address] [place] [address] Nov, Panlobular emphysema J43.1 [facility] [address] [id number] [address] [place] [phone] Nov, Cerebrovascular accident (CV A) due to occlusion of right cerebellar artery I63.541 and Acute non-recurrent maxillary sinusitis J01.00 [facility] [address] [id number] [address] [place] [phone] Nov, Panlobular emphysema J43.1 [facility] [address] [id number] [address] [place] [phone] Nov, [facility] [address] [id number] [address] [place] [phone] Nov, [facility] [address] [id number] [address] [place] [id number] Nov, [facility] [address] [id number] [address] [place] [id number] Nov, [facility] [address] [facility] [id number] [address] [place] [phone] Nov, [facility] [address] [id number] [address] [place] [phone] Nov, [facility] [address] [facility] [id number] [address] [place] [id number] Nov, [facility] [address] [facility] [id number] [address] [place] [id number] Nov, Mild persistent asthma witho ut complication J45.30 and Irritable bowel syndrome with both constipation and diarrhea K58.2 [facility] [address] [facility] [id number] [address] [place] [phone] Nov, [facility] [address] [id number] [address] [place] [phone] Oct, [facility] [address] [id number] [address] [place] [id number] Oct, [facility] [address] [facility] [id number] [address] [place] [phone] Oct, Type 2 diabetes mellitus wit h diabetic neuropathy, unspecified whether half-way insulin use E11.40 ; Diabetes E11.9 ; Slow transit constipation K59.01 ; Edema of both legs R60.0 and Dysfunction of right eustachian tube H69.81 [facility] [address] [id number] [address] [place] [phone] Oct, Frequent headaches R51 [facility] [address] [facility] [id number] [address] [place] [phone] Oct, [facility] [address] [id number] [address] [place] [address] Oct, [facility] [address] [facility] [id number] [address] [place] [id number] Oct, [facility] [address] [id number] [address] [place] [phone] Oct, [facility] [address] [facility] [id number] [address] [place] [phone] Oct, [facility] [address] [id number] [address] [place] [phone] Oct, [facility] [address] [facility] [id number] [address] [place] [phone] Oct, [facility] [address] [id number] [address] [place] [id number] Oct, [facility] [address] [facility] [id number] [address] [place] [id number] September, Frequent headaches R51 [facility] [address] [facility] [id number] [address] [place] [id number] September, Bilateral otitis media with effusion H65.93 ; Dizziness R42 and Essential tremor G25.0 [facility] [address] [facility] [id number] [address] [place] [id number] September, Chronic obstructive pulmonar y disease, unspecified COPD type J44.9 [facility] [address] [id number] [address] [place] [id number] September, Chronic obstructive pulmonar y disease, unspecified COPD type J44.9 [facility] [address] [id number] [address] [place] [id number] September, Migraine without aura and wi thout status migrainosus, not intractable G43.009 [facility] [address] [facility] [id number] [address] [place] [phone] September, [facility] [address] [place] [id number] [address] [place] [id number] September, [facility] [address] [facility] [id number] [address] [place] [phone] September, [facility] [address] [facility] [id number] [address] [place] [phone] September, Frequent headaches R51 [facility] [address] [facility] [id number] [address] [place] [id number] Aug, [facility] [address] [facility] [id number] [address] [place] [address] Aug, Breast mass, right N63.10 [facility] [address] [facility] [id number] [address] [place] [id number] Aug, Breast lump N63.0 [facility] [address] [facility] [id number] [address] [place] [id number] Aug, [facility] [address] [facility] [id number] [address] [place] [phone] Aug, Bipolar affective disorder, remission status unspecified F31.9 and Diabetes E11.9 [place] [address] [id number] [address] [place] [phone] 18 Aug, 2017 Diabetes E11.9 ; Schizoaffec tive disorder, bipolar type F25.0 ; Pharyngitis due to other organism J02.8 ; Panlobular emphysema J43.1 and Irritable bowel syndrome with both constipation and diarrhea K58.2 [place] [address] [facility] [id number] [address] [place] [phone] Aug, Abnormal mammogram R92.8 [place] [address] [facility] [id number] [address] [place] [phone] Aug, [place] [address] [facility] [id number] [address] [place] [phone] Aug, Bipolar 1 disorder, depresse d, moderate F31.32 ; Panic disorder with agoraphobia F40.01 and Chronic post-traumatic stress disorder (PTSD) F43.12 [place] [address] [facility] [id number] [address] [place] [phone] Aug, [place] [address] [facility] [id number] [address] [place] [phone] Aug, [place] [address] [facility] [id number] [address] [place] [phone] Aug, [place] [address] [facility] [id number] [address] [place] [phone] Jul, [place] [address] [facility] [id number] [address] [place] [phone] Jul, Mild persistent asthma witho ut complication J45.30 [place] [address] [facility] [id number] [address] [place] [id number] 19 Jul, 2017 Mild persistent asthma witho ut complication J45.30 [place] [address] [facility] [id number] [address] [place] [id number] 15 Jul, 2017 Bipolar affective disorder, remission status unspecified F31.9 ; Diabetes E11.9 and Irritable bowel syndrome with constipation K58.1 [facility] [address] [id number] [address] [place] [id number] 13 Jul, 2017 [facility] [address] [id number] [address] [place] [phone] Jul, [facility] [address] [id number] [address] [place] [id number] Jul, Frequent headaches R51 [facility] [address] [id number] [address] [place] [id number] Jul, [facility] [address] [id number] [address] [place] [id number] Jul, [facility] [address] [id number] [address] [place] [phone] Jul, [facility] [address] [id number] [address] [place] [id number] Jul, Frequent headaches R51 ; Fib rocystic disease of left breast N60.12 ; Fibrocystic disease of right breast N60.11 and Diabetes E11.9 [facility] [address] [id number] [address] [place] [id number] Jul, [facility] [address] [id number] [address] [place] [phone] Jul, [facility] [address] [facility] [id number] [address] [place] [id number] Jun, Exudative tonsillitis J03.90 [facility] [address] [id number] [address] [place] [phone] Jun, [facility] [address] [facility] [id number] [address] [place] [phone] Jun, [facility] [address] [facility] [id number] [address] [place] [phone] 15 Jun, 2017 Mild persistent asthma witho ut complication J45.30 ; Chronic obstructive pulmonary disease, unspecified COPD type J44.9 and Exudative tonsillitis J03.90 [facility] [address] [facility] [id number] [address] [place] [id number] 13 Jun, 2017 Encounter for immunization Z 23 [facility] [address] [facility] [id number] [address] [place] [id number] 12 Jun, 2017 [facility] [address] [facility] [id number] [address] [place] [phone] Jun, [facility] [address] [facility] [id number] [address] [place] [phone] Jun, [facility] [address] [facility] [id number] [place] [phone] 06 Jun, 2017 Tonsillitis J03.90 [facility] [address] [place] [id number] [place] [phone] Jun, [facility] [address] [id number] Jun, Acute non-recurrent maxillar y sinusitis J01.00 [facility] [address] [place] [id number] [address] [place] [phone] Jun, [facility] [address] [place] [id number] [address] [place] [phone] May, [facility] [address] [place] [id number] [address] [place] [phone] May, [facility] [address] [id number] May, GERD (gastroesophageal reflu x disease) K21.9 [facility] [address] [id number] May, Migraine without aura and wi thout status migrainosus, not intractable G43.009 [facility] [address] [place] [id number] [address] [place] [phone] May, [facility] [address] [place] [id number] [address] [place] [phone] May, [facility] [address] [id number] [address] [place] [phone] May, Panlobular emphysema J43.1 a nd Acute non-recurrent maxillary sinusitis J01.00 [facility] [address] [id number] [address] [place] [id number] May, Bipolar 1 disorder, depresse d, moderate F31.32 ; Panic disorder with agoraphobia F40.01 and Akathisia G25.71 [facility] [address] [id number] [address] [place] [phone] Apr, [facility] [address] [id number] [address] [place] [phone] Apr, [facility] [address] [facility] [id number] [address] [place] [id number] Apr, Acute non-recurrent maxillar y sinusitis J01.00 [facility] [address] [id number] [address] [place] [phone] Apr, Panlobular emphysema J43.1 [facility] [address] [id number] [address] [place] [phone] 04 Apr, 2017 [facility] [address] [id number] [address] [place] [id number] 04 Apr, 2017 Exudative tonsillitis J03.90 and Sore throat J02.9 [facility] [address] [id number] [address] [place] [phone] Mar, [facility] [address] [facility] [id number] [address] [place] [phone] 15 Mar, 2017 Acute non-recurrent maxillar y sinusitis J01.00 [facility] [address] [facility] [id number] [address] [place] [phone] Mar, [facility] [address] [facility] [id number] [address] [place] [phone] 09 Mar, 2017 Panlobular emphysema J43.1 a nd Diabetes E11.9 [facility] [address] [facility] [id number] [address] [place] [phone] 06 Mar, 2017 [facility] [address] [facility] [id number] [address] [place] [id number] 24 Feb, 2017 Wheezing R06.2 and Acute rec urrent pansinusitis J01.41 [facility] [address] [facility] [id number] [address] [place] [id number] Feb, [facility] [address] [place] [id number] [place] [phone] 16 Feb, 2017 Acute non-recurrent maxillar y sinusitis J01.00 [place] [address] [place] [id number] [address] [place] [phone] Feb, Chronic obstructive pulmonar y disease, unspecified J44.9 [facility] [address] [facility] [id number] [address] [place] [phone] Feb, Hypoxemia R09.02 and Chronic obstructive pulmonary disease, unspecified J44.9 [facility] [address] [place] [id number] [address] [place] [id number] 28 Jan, 2017 Bipolar 1 disorder, depresse d, moderate F31.32 ; Panic disorder with agoraphobia F40.01 ; Chronic post-traumatic stress disorder (PTSD) F43.12 ; Diabetes E11.9 and Moderate persistent asthma without complication J45.40 [facility] [address] [facility] [id number] [address] [place] [id number] Jan, [facility] [address] [place] [id number] [place] [id number] 19 Jan, 2017 Acute non-recurrent maxillar y sinusitis J01.00 [place] [address] [place] [id number] [address] [place] [id number] 18 Jan, 2017 [facility] [address] [place] [id number] [place] [address], [place] [address] 18 Jan, 2017 [facility] [address] [id number] [address] [place] [id number] 12 Jan, 2017 Moderate persistent asthma w ithout complication J45.40 and Hypoxemia R09.02 [facility] [address] [id number] [address] [place] [phone] Jan, Moderate persistent asthma w ithout complication J45.40 and Hypoxemia R09.02 [facility] [address] [id number] [address] [place] [phone] Jan, [facility] [address] [id number] [address] [place] [id number] Dec, Acute non-recurrent maxillar y sinusitis J01.00 [facility] [address] [id number] [address] [place] [phone] Dec, Chronic obstructive pulmonar y disease, unspecified J44.9 [facility] [address] [id number] [address] [place] [id number] Dec, [facility] [address] [id number] [address] [place] [id number] Dec, Mild persistent asthma witho ut complication J45.30 and Other chronic pain G89.29 [facility] [address] [id number] [address] [place] [phone] Nov, [facility] [address] [id number] [address] [place] [phone] Nov, Acute non-recurrent maxillar y sinusitis J01.00 [facility] [address] [id number] [address] [place] [id number] Nov, [facility] [address] [id number] [address] [place] [phone] Nov, [facility] [address] [facility] [id number] [address] [place] [phone] Oct, [facility] [address] [facility] [id number] [address] [place] [id number] Oct, Bipolar 1 disorder, depresse d, partial remission F31.75 ; Panic disorder with agoraphobia F40.01 and Chronic post-traumatic stress disorder (PTSD) F43.12 [place] [id number] [facility] [id number] [address] [place] [phone] Oct, Acute non-recurrent maxillar y sinusitis J01.00 [place] [address] [id number] [address] [place] [phone] Oct, [place] [address] [facility] [id number] [address] [place] [phone] Oct, Diabetes E11.9 [place] [address] [facility] [id number] [address] [place] [phone] September, Diabetes E11.9 [place] [address] [facility] [id number] [address] [place] [phone] September, Diabetes E11.9 and Sinus tac hycardia R00.0 [place] [address] [id number] [address] [place] [id number] September, [place] [address] [facility] [id number] [address] [place] [phone] September, [place] [address] [facility] [id number] [address] [place] [id number] Aug, Diabetes E11.9 and Lumbago w ith sciatica, right side M54.41 [place] [id number] [id number] [address] [place] [id number] Aug, [place] [address] [facility] [id number] [address] [place] [id number] Jul, Bipolar 1 disorder, depresse d, moderate F31.32 ; Panic disorder with agoraphobia F40.01 and Chronic post-traumatic stress disorder (PTSD) F43.12 [place] [address] [facility] [id number] [address] [place] [phone] Jul, Sore throat J02.9 [facility] [address] [id number] [address] [place] [phone] 16 Jul, 2016 [facility] [address] [id number] [address] [place] [id number] Jul, [facility] [address] [id number] [address] [place] [id number] Jul, [facility] [address] [id number] [address] [place] [phone] Jul, [facility] [address] [id number] [address] [place] [phone] Jul, Sore throat J02.9 and Pharyn gitis, unspecified etiology J02.9 [facility] [address] [id number] [address] [place] [phone] Jun, [facility] [address] [id number] [address] [place] [phone] 23 Jun, 2016 Diabetes E11.9 [facility] [address] [id number] [address] [place] [id number] Jun, [facility] [address] [id number] [address] [place] [phone] 16 Jun, 2016 [facility] [address] [id number] [address] [place] [id number] 16 Jun, 2016 [facility] [address] [id number] [address] [place] [phone] Jun, [facility] [address] [id number] [address] [place] [phone] Jun, [facility] [address] [id number] [address] [place] [id number] 15 Jun, 2016 [facility] [address] [id number] [address] [place] [phone] 10 Jun, 2016 [place] [place] [address] [place] [id number] [address] [place] [id number] Jun, [facility] [address] [place] [id number] [place] [phone] May, Diabetes E11.9 ; Other chron ic pain G89.29 ; Acute recurrent maxillary sinusitis J01.01 ; Bipolar I disorder with depression F31.9 and Anxiety disorder, unspecified F41.9 [facility] [place] [address] [place] [id number] [place] [phone] May, [place] [address] [place] [id number] [address] [place] [address] May, Diabetes E11.9 ; Bipolar I d isorder with depression F31.9 ; Anxiety disorder, unspecified F41.9 ; Other chronic pain G89.29 and Acute recurrent maxillary sinusitis J01.01 [place] [address] [address] May, [place] [address] [place] [id number] [place] [address] May, Attention deficit hyperactiv ity disorder (ADHD), predominantly inattentive type F90.0 [place] [address] [id number] May, [place] [address] [place] [id number] [address] [place] [address] Apr, Attention deficit hyperactiv ity disorder (ADHD), predominantly inattentive type F90.0 and Non-seasonal allergic rhinitis due to other allergic trigger J30.89 [place] [address] [place] [id number] [place] [address] Apr, Bipolar 1 disorder, depresse d, moderate F31.32 ; Panic disorder with agoraphobia F40.01 and Chronic post-traumatic stress disorder (PTSD) F43.12 [place] [address] [address] Apr, Dental examination Z01.20 [facility] [address] [id number] [address] [place] [phone] Mar, [facility] [address] [id number] [address] [place] [address] Mar, [facility] [address] [id number] [address] [place] [phone] Mar, Bipolar I disorder with depr ession F31.9 and Anxiety disorder, unspecified F41.9 [facility] [address] [id number] [address] [place] [id number] 08 Mar, 2016 Panic disorder with agorapho syd F40.01 ; Bipolar 1 disorder, depressed, moderate F31.32 and Chronic post-traumatic stress disorder (PTSD) F43.12 [place] [address] [id number] [address] [place] [phone] Mar, [place] [address] [id number] [address] [place] [id number] Mar, Dental caries K02.9 [facility] [address] [id number] [address] [place] [id number] 24 Feb, 2016 Lumbago with sciatica, left side M54.42 ; Lumbago with sciatica, right side M54.41 and Other chronic pain G89.29 [facility] [address] [id number] [address] [place] [id number] Feb, [facility] [address] [id number] [address] [place] [phone] 14 Feb, 2016 [facility] [address] [id number] [address] [place] [id number] Feb, Bipolar I disorder with depr ession F31.9 ; PTSD (post-traumatic stress disorder) F43.10 and Mood disorder F39 [facility] [address] [id number] [address] [place] [id number] Feb, [facility] [address] [id number] 11 Feb, 2016 Dental examination Z01.20 [facility] [address] [id number] 07 Feb, 2016 [facility] [address] [address] 03 Feb, 2016 Acute bronchitis, unspecifie d organism J20.9 [place] [address] [id number] Jan, Mood disorder F39 ; Migraine without aura and without status migrainosus, not intractable G43.009 ; Irritable bowel syndrome, unspecified type K58.9 ; Diabetes E11.9 and Encounter for immunization Z23 [place] [address] [id number] 15 Jan, 2016 [place] [address] [address] Jan, [place] [address] [address] Jan, [place] [address] [address] Jan, [place] [address] [address] Jan, [facility] [address] [address] Dec, Bipolar I disorder with depr ession F31.9 ; PTSD (post-traumatic stress disorder) F43.10 and Panic disorder with agoraphobia F40.01 [place] [address] [address] Dec, Chronic obstructive pulmonar y disease, unspecified COPD type J44.9 ; Tremor R25.1 and Anxiety F41.9 [place] [address] [address] Dec, [facility] [address] [id number] [address] [place] [address] Nov, Tremors of nervous system R2 5.1 and Cramping of feet R25.2 [facility] [address] [id number] [address] [place] [address] Nov, [facility] [address] [id number] [address] [place] [id number] Nov, [facility] [address] [id number] [address] [place] [id number] Oct, Chronic obstructive pulmonar y disease, unspecified J44.9 [facility] [address] [id number] [address] [place] [address] Oct, [facility] [address] [id number] [address] [place] [address] Oct, Tremor R25.1 [place] [id number] [id number] [address] [place] [id number] Oct, Bipolar I disorder with depr ession F31.9 ; Diabetes E11.9 ; PTSD (post-traumatic stress disorder) F43.10 and Panic disorder with agoraphobia F40.01 [facility] [address] [id number] [address] [place] [id number] Oct, Mood disorder F39 [facility] [address] [id number] [address] [place] [id number] September, [facility] [address] [id number] [address] [place] [id number] September, Diabetes E11.9 ; Bipolar I d isorder with depression F31.9 ; PTSD (post-traumatic stress disorder) F43.10 and Panic disorder with agoraphobia F40.01 [facility] [address] [facility] [id number] [address] [place] [address] September, Mood disorder F39 ; Schizoaf fective disorder, unspecified type F25.9 ; Arthritis M19.90 ; Tremor R25.1 ; Acute non-recurrent frontal sinusitis J01.10 and Blood in stool K92.1 [facility] [address] [facility] [id number] [address] [place] [address] September, [facility] [address] [facility] [id number] [address] [place] [phone] September, Chronic obstructive pulmonar y disease, unspecified J44.9 [facility] [address] [facility] [id number] [address] [place] [address] September, Diabetes E11.9 [place] [address] [facility] [id number] [address] [place] [phone] Aug, Other bipolar disorder F31.8 9 and Anxiety disorder, unspecified F41.9 [place] [address] [place] [id number] [address] [place] [address] Aug, [place] [address] [place] [id number] [address] [place] [id number] Aug, Diabetes E11.9 [place] [address] [facility] [id number] [address] [place] [id number] 18 Aug, 2015 [place] [address] [place] [id number] [address] [place] [id number] 14 Aug, 2015 Diabetes E11.9 ; Fatigue R53 .83 and Dizziness R42 [place] [address] [facility] [id number] [address] [place] [address] Aug, Other bipolar disorder F31.8 9 [place] [id number] [facility] [id number] [address] [place] [address] 07 Aug, 2015 Generalized anxiety disorder F41.1 [place] [address] [facility] [id number] [address] [place] [id number] 07 Aug, 2015 Other bipolar disorder F31.8 9 and Anxiety disorder, unspecified F41.9 [place] [address] [place] [id number] [address] [place] [phone] Aug, [facility] [address] [id number] [address] [place] [phone] Jul, [facility] [address] [id number] [address] [place] [id number] Jul, [facility] [address] [id number] [address] [place] [id number] Jul, Bronchitis J40 [facility] [address] [facility] [id number] [address] [place] [id number] Jul, Anxiety disorder F41.9 [facility] [address] [id number] [address] [place] [address] Jul, Other bipolar disorder F31.8 9 and Anxiety disorder, unspecified F41.9 [facility] [address] [facility] [id number] [address] [place] [id number] Jul, Other bipolar disorder F31.8 9 and Fibromyalgia M79.7 [facility] [address] [id number] [address] [place] [id number] Jul, [facility] [address] [id number] [address] [place] [phone] Jul, [facility] [address] [facility] [id number] [address] [place] [id number] Jul, [facility] [address] [id number] [address] [place] [id number] Jul, Other bipolar disorder F31.8 9 and Anxiety disorder, unspecified F41.9 [facility] [address] [id number] [address] [place] [id number] Jun, GERD (gastroesophageal reflu x disease) K21.9 [facility] [address] [id number] [address] [place] [id number] Jun, [facility] [address] [facility] [id number] [address] [place] [address] May, [facility] [address] [facility] [id number] [address] [place] [id number] 14 May, 2015 Diabetes E11.9 ; Back pain M 54.9 ; GERD (gastroesophageal reflux disease) K21.9 ; Hypertension I10 and Peripheral neuropathy G62.9 [facility] [address] [facility] [id number] [address] [place] [id number] Mar, [facility] [address] [place] [id number] [address] [place] [id number] Mar, [facility] [address] [facility] [id number] [address] [place] [id number] Mar, Acute sinusitis J01.90 and O titis media, left H66.92 [facility] [address] [place] [id number] [address] [place] [address] Feb, [facility] [address] [place] [id number] [place] [phone] Feb, [facility] [address] [place] [id number] [address] [place] [id number] Feb, [facility] [address] [facility] [id number] [address] [place] [id number] Feb, [facility] [address] [place] [id number] [address] [place] [id number] Jan, [facility] [address] [place] [id number] [address] [place] [id number] Jan, Diabetes 250.00 and Back higinio n 724.5 [facility] [address] [facility] [id number] [address] [place] [address] Jan, [facility] [address] [place] [id number] [place] [address] Dec, Diabetes 250.00 ; Benign ess ential hypertension 401.1 and Allergic rhinitis 477.9 [facility] [address] [place] [id number] [address] [place] [id number] Dec, [facility] [address] [facility] [id number] [address] [place] [id number] Dec, [facility] [address] [id number] [address] [place] [phone] Dec, Psychosis 298.9 [facility] [address] [facility] [id number] [address] [place] [address] Dec, Medication side effect 995.2 0 and Generalized anxiety disorder 300.02 [facility] [address] [id number] [address] [place] [phone] Dec, Acquired cognitive dysfuncti on 294.9 [facility] [address] [facility] [id number] [address] [place] [id number] Dec, [facility] [address] [facility] [id number] [address] [place] [id number] Dec, Unspecified myalgia and myos itis 729.1 and Generalized anxiety disorder 300.02 [facility] [address] [facility] [id number] [address] [place] [phone] Nov, [facility] [address] [facility] [id number] [address] [place] [phone] Nov, [facility] [address] [facility] [id number] [address] [place] [phone] Nov, [facility] [address] [facility] [id number] [address] [place] [address] Nov, Upper respiratory infection 465.9 and Chronic airway obstruction, not elsewhere classified 496 [facility] [address] [facility] [id number] [address] [place] [id number] Nov, Hyponatremia 276.1 [facility] [address] [facility] [id number] [address] [place] [id number] Oct, [facility] [address] [facility] [id number] [address] [place] [phone] Oct, [facility] [address] [facility] [id number] [address] [place] [phone] Oct, [facility] [address] [facility] [id number] [address] [place] [phone] Oct, [facility] [address] [facility] [id number] [address] [place] [phone] Oct, Hyponatremia 276.1 [facility] [address] [facility] [id number] [address] [place] [id number] Oct, [facility] [address] [facility] [id number] [address] [place] [phone] Oct, [facility] [address] [facility] [id number] [address] [place] [phone] Oct, Generalized anxiety disorder 300.02 [facility] [address] [facility] [id number] [address] [place] [phone] Oct, Generalized anxiety disorder 300.02 and Diabetes 250.00 [facility] [address] [facility] [id number] [address] [place] [phone] Aug, [facility] [address] [facility] [id number] [address] [place] [phone] Aug, [facility] [address] [facility] [id number] [address] [place] [phone] Jul, [facility] [address] [facility] [id number] [address] [place] [id number] Jul, [facility] [address] [facility] [id number] [address] [place] [id number] Jun, [facility] [address] [facility] [id number] [address] [place] [id number] Jun, [facility] [address] [facility] [id number] [address] [place] [id number] Jun, [facility] [address] [facility] [id number] [address] [place] [id number] Jun, [facility] [address] [facility] [id number] [address] [place] [id number] Jun, [facility] [address] [id number] [address] [place] [address], [place] [address] May, [facility] [address] [id number] [address] [place] [address], [place] [address] May, [facility] [address] [id number] [address] [place] [address], [place] [address] Apr, [facility] [address] [id number] [address] [place] [address], [place] [address] Apr, [facility] [address] [id number] [address] [place] [address], [place] [address] Apr, [facility] [address] [id number] [address] [place] [address], [place] [address] Apr, [facility] [address] [id number] [address] [place] [address], [place] [address] Apr, [facility] [address] [id number] [address] [place] [address], [place] [address] Apr, [facility] [address] [id number] [address] [place] [address], [place] [address] Apr, [facility] [address] [id number] [address] [place] [address], [place] [address] Apr, [facility] [address] [id number] [address] [place] [address], [place] [address] Feb, [facility] [address] [id number] [address] [place] [address], [place] [address] Feb, [facility] [address] [id number] [address] [place] [address], [place] [address] Jan, [facility] [address] [id number] [address] [place] [address], [place] [address] Jan, [facility] [address] [id number] [address] [place] [address], [place] [address] Dec, [facility] [address] [id number] [address] [place] [address], [place] [address] Dec, [facility] [address] [id number] [address] [place] [address], [place] [address] Dec, [facility] [address] [id number] [address] [place] [address], [place] [address] Nov, [facility] [address] [id number] [address] [place] [address], [place] [address] Nov, [facility] [address] [id number] [address] [place] [address], [place] [address] Nov, [facility] [address] [id number] [address] [place] [address], [place] [address] Oct, [facility] [address] [id number] [address] [place] [address], [place] [address] Oct, [facility] [address] [id number] [address] [place] [address], [place] [address] Oct, [facility] [address] [id number] [address] [place] [address], [place] [address] September, [facility] [address] [id number] [address] [place] [address], [place] [address] September, [facility] [address] [id number] [address] [place] [address], [place] [address] September, [facility] [address] [id number] [address] [place] [address], [place] [address] Aug, [facility] [address] [id number] [address] [place] [address], [place] [address] Aug, [facility] [address] [id number] [address] [place] [address], [place] [address] Aug, [facility] [address] [id number] [address] [place] [address], [place] [address] 16 Aug, 2011 [facility] [address] [id number] [address] [place] [address], [place] [address] Jul, [facility] [address] [id number] [address] [place] [address], [place] [address] Jun, [facility] [address] [id number] [address] [place] [address], [place] [address] 14 Jun, 2011 [facility] [address] [id number] [address] [place] [address], [place] [address] 13 Jun, 2011 [facility] [address] [id number] [address] [place] [address], [place] [address] 07 Jun, 2011 [facility] [address] [id number] [address] [place] [address], [place] [address] 03 Jun, 2011 [facility] [address] [id number] [address] [place] [address], [place] [address] 13 May, 2011 [facility] [address] [id number] [address] [place] [address], [place] [address] May, [facility] [address] [id number] [address] [place] [address], [place] [address] May, [facility] [address] [id number] [address] [place] [address], [place] [address] May, [facility] [address] [id number] [address] [place] [address], [place] [address] Apr, [facility] [address] [id number] [address] [place] [address], [place] [address] Apr, [facility] [address] [id number] [address] [place] [address], [place] [address] 05 Apr, 2011 [facility] [address] [id number] [address] [place] [address], [place] [address] Mar, [facility] [address] [id number] [address] [place] [address], [place] [address] Mar, [facility] [address] [id number] [address] [place] [address], [place] [address] Mar, [facility] [address] [id number] [address] [place] [id number] 13 Feb, 2011 [facility] [address] [id number] [address] [place] [address] Feb, [facility] [address] [id number] [address] [place] [id number] Feb, [facility] [address] [id number] [address] [place] [id number] Nov, [facility] [address] [id number] [address] [place] [id number] September, [facility] [address] [id number] [address] [place] [id number] Aug, [facility] [address] [id number] [address] [place] [id number] Jul, [facility] [address] [id number] [address] [place] [id number] May, [facility] [address] [id number] [address] [place] [id number] Apr, [facility] [address] [id number] [address] [place] [id number] Apr, [facility] [address] [id number] [address] [place] [id number] Apr, [facility] [address] [id number] [address] [place] [id number] Apr, [facility] [address] [id number] [address] [place] [id number] Apr, IMMUNIZATIONS No Known Immunizations SOCIAL HISTORY Never Assessed REASON FOR VISIT Refill request PLAN OF CARE VITAL SIGNS MEDICATIONS Medication Instructions Dosage Frequency Start Date End Date Duration S samantha Amitiza 8 MCG Orally Twice a day 1 capsule with food 12h Nov, 30 day(s) Active MiraLax - Orally 3 [...]
--- OUTSIDE RECORDS SUMMARY | 2019-07-17 10:58 | XMS REPORT ---
Author Author Sujey GANDHI Organization [facility] Address [address] [place] [address] Care Team Providers Care Cellophane Tester Name Role Phone WHIT GANDHI Unavailable PROBLEMS Type Condition ICD9-CM Code [id number] Code Onset Dates Condition S tatus SNOMED Code Problem GERD (gastroesophageal reflux disease) K21.9 Active 278190068 Problem Back pain M54.9 Active 448804004 Problem Hypertension I10 Active 1945324 3 Problem Diabetes E11.9 Active 76959443 Problem Anxiety disorder, unspecified F41.9 Active 574751103 Problem Other bipolar disorder F31.89 Active 63823251 Problem Fibromyalgia M79.7 Active 6995345 7 Problem Panic disorder with agoraphobia F40.01 Active 43421100 Problem Chronic obstructive pulmonary disease, unspecified J44.9 Active 76490467 Problem Akathisia G25.71 Active 334668311 Problem Lumbago with sciatica, left side M54.42 Active 214027289 Problem Migraine without aura and without status migrain osus, not intractable G43.009 Active 198274080 Problem Lumbago with sciatica, right side M54.41 Active 031501159 Problem Fibrocystic disease of right breast N60.11 Active 66192707 Problem Arthritis M19.90 Active 0383565 Problem Fibrocystic disease of left breast N60.12 Active 00909654 Problem Daytime somnolence R40.0 Active 1 [id number] Problem Slow transit constipation K59.01 Acti ve 69571302 Problem Chronic post-traumatic stress disorder (PTSD) F43. 12 Active 187740629 Problem Bipolar 1 disorder, depressed, moderate F31.32 Active 89634554 Problem Other chronic pain G89.29 Active 8 8374751 Problem Irritable bowel syndrome with both constipation and diarrh ea K58.2 Active 29345969 Problem Irritable bowel syndrome with constipation K58.1 Active 256060311 Problem Essential tremor G25.0 Active 609 099161 Problem Schizoaffective disorder, bipolar type F25.0 Active 88699130 Problem Bipolar I disorder with depression F31.9 Active 38763154 Problem Acute non-recurrent maxillary sinusitis J01.00 Active 36673531 Problem Bipolar affective disorder, remission status unspecified F31.9 Active 98475034 Problem Attention deficit hyperactiv ity disorder (ADHD), predominantly inattentive type F90.0 Active 82202550 Problem Moderate persistent asthma without complication J4 5.40 Active 855981182 Problem Panlobular emphysema J43.1 Active 6355981 Problem Bipolar 1 disorder, depressed, partial remission F 31.75 Active 45569928 Problem Mild persistent asthma without complication J45.30 Active 987029831 ALLERGIES No Information ENCOUNTERS Encounter Location Date Diagnosis [place] [address] [place] [id number] [place] [address] Mar, [place] [address] [address] Jan, [place] [address] [address] Dec, Daytime somnolence R40.0 and Right otitis media with effusion H65.91 [place] [id number] [place] [address] Dec, [place] [address] [place] [id number] [address] [place] [address] Dec, Cerebrovascular accident (CV A) due to occlusion of right cerebellar artery I63.541 [place] [address] [place] [id number] [address] [place] [address] Dec, [facility] [address] [place] [id number] [address] [place] [address] Dec, [place] [address] [place] [id number] [address] [place] [address] Nov, Bipolar 1 disorder, depresse d, partial remission F31.75 and Panic disorder with agoraphobia F40.01 [facility] [address] [place] [id number] [address] [place] [address] Nov, Panlobular emphysema J43.1 [facility] [address] [id number] [address] [place] [address] Nov, Cerebrovascular accident (CV A) due to occlusion of right cerebellar artery I63.541 and Acute non-recurrent maxillary sinusitis J01.00 [facility] [address] [id number] [address] [place] [address] Nov, Panlobular emphysema J43.1 [facility] [address] [id number] [address] [place] [address] Nov, [facility] [address] [id number] [address] [place] [address] Nov, [facility] [address] [id number] [address] [place] [address] Nov, [facility] [address] [id number] [address] [place] [address] Nov, [facility] [address] [id number] [address] [place] [address] Nov, [facility] [address] [id number] [address] [place] [address] Nov, [facility] [address] [id number] [address] [place] [address] Nov, [facility] [address] [id number] [address] [place] [address] Nov, Mild persistent asthma witho ut complication J45.30 and Irritable bowel syndrome with both constipation and diarrhea K58.2 [facility] [address] [id number] [address] [place] [address] Nov, [facility] [address] [id number] [address] [place] [address] Oct, [facility] [address] [id number] [address] [place] [id number] Oct, [facility] [address] [id number] [address] [place] [address] Oct, Type 2 diabetes mellitus wit h diabetic neuropathy, unspecified whether buttermaker continuous churn insulin use E11.40 ; Diabetes E11.9 ; Slow transit constipation K59.01 ; Edema of both legs R60.0 and Dysfunction of right eustachian tube H69.81 [facility] [address] [id number] [address] [place] [address] Oct, Frequent headaches R51 [facility] [address] [id number] [address] [place] [address] Oct, [facility] [address] [id number] [address] [place] [address] Oct, [facility] [address] [facility] [id number] [address] [place] [address] Oct, [facility] [address] [facility] [id number] [address] [place] [address] Oct, [facility] [address] [facility] [id number] [address] [place] [address] Oct, [facility] [address] [facility] [id number] [address] [place] [address] Oct, [facility] [address] [facility] [id number] [address] [place] [address] Oct, [facility] [address] [facility] [id number] [address] [place] [address] Oct, [facility] [address] [facility] [id number] [address] [place] [address] September, Frequent headaches R51 [facility] [address] [facility] [id number] [address] [place] [address] September, Bilateral otitis media with effusion H65.93 ; Dizziness R42 and Essential tremor G25.0 [facility] [address] [id number] [address] [place] [address] September, Chronic obstructive pulmonar y disease, unspecified COPD type J44.9 [facility] [address] [id number] [address] [place] [address] September, Chronic obstructive pulmonar y disease, unspecified COPD type J44.9 [facility] [address] [id number] [address] [place] [address] September, Migraine without aura and wi thout status migrainosus, not intractable G43.009 [facility] [address] [id number] [address] [place] [address] September, [facility] [address] [id number] [address] [place] [address] September, [facility] [address] [facility] [id number] [address] [place] [address] September, [facility] [address] [facility] [id number] [address] [place] [address] September, Frequent headaches R51 [facility] [address] [id number] [address] [place] [address] Aug, [facility] [address] [facility] [id number] [address] [place] [address] Aug, Breast mass, right N63.10 [facility] [address] [facility] [id number] [address] [place] [address] Aug, Breast lump N63.0 [facility] [address] [facility] [id number] [address] [place] [address] Aug, [facility] [address] [facility] [id number] [address] [place] [address] Aug, Bipolar affective disorder, remission status unspecified F31.9 and Diabetes E11.9 [facility] [address] [facility] [id number] [address] [place] [address] Aug, Diabetes E11.9 ; Schizoaffec tive disorder, bipolar type F25.0 ; Pharyngitis due to other organism J02.8 ; Panlobular emphysema J43.1 and Irritable bowel syndrome with both constipation and diarrhea K58.2 [place] [address] [id number] [address] [place] [address] Aug, Abnormal mammogram R92.8 [facility] [address] [id number] [address] [place] [address] Aug, [facility] [address] [id number] [address] [place] [address] Aug, Bipolar 1 disorder, depresse d, moderate F31.32 ; Panic disorder with agoraphobia F40.01 and Chronic post-traumatic stress disorder (PTSD) F43.12 [place] [address] [id number] [address] [place] [address] Aug, [place] [address] [id number] [address] [place] [address] Aug, [place] [address] [id number] [address] [place] [address] Aug, [place] [address] [id number] [address] [place] [address] Jul, [place] [address] [facility] [id number] [address] [place] [address] Jul, Mild persistent asthma witho ut complication J45.30 [place] [address] [id number] [address] [place] [id number] Jul, Mild persistent asthma witho ut complication J45.30 [place] [address] [id number] [address] [place] [address] 15 Jul, 2017 Bipolar affective disorder, remission status unspecified F31.9 ; Diabetes E11.9 and Irritable bowel syndrome with constipation K58.1 [place] [address] [id number] [address] [place] [address] Jul, [place] [address] [facility] [id number] [address] [place] [address] Jul, [facility] [address] [facility] [id number] [address] [place] [address] Jul, Frequent headaches R51 [facility] [address] [facility] [id number] [address] [place] [address] Jul, [facility] [address] [facility] [id number] [address] [place] [address] Jul, [facility] [address] [facility] [id number] [address] [place] [address] Jul, [facility] [address] [facility] [id number] [address] [place] [address] Jul, Frequent headaches R51 ; Fib rocystic disease of left breast N60.12 ; Fibrocystic disease of right breast N60.11 and Diabetes E11.9 [place] [address] [facility] [id number] [address] [place] [address] Jul, [place] [address] [facility] [id number] [address] [place] [address] Jul, [place] [address] [address] Jun, Exudative tonsillitis J03.90 [place] [address] [place] [id number] [place] [address] Jun, [place] [address] [place] [id number] [place] [address] 19 Jun, 2017 [place] [address] [facility] [id number] [address] [place] [id number] 15 Jun, 2017 Mild persistent asthma witho ut complication J45.30 ; Chronic obstructive pulmonary disease, unspecified COPD type J44.9 and Exudative tonsillitis J03.90 [place] [address] [facility] [id number] [address] [place] [address] 13 Jun, 2017 Encounter for immunization Z 23 [place] [address] [place] [id number] [place] [address] Jun, [facility] [address] [facility] [id number] [address] [place] [address] Jun, [facility] [address] [facility] [id number] [address] [place] [address] Jun, [facility] [address] [facility] [id number] [address] [place] [id number] 06 Jun, 2017 Tonsillitis J03.90 [facility] [address] [facility] [id number] [address] [place] [address] Jun, [facility] [address] [facility] [id number] [address] [place] [address] Jun, Acute non-recurrent maxillar y sinusitis J01.00 [facility] [address] [facility] [id number] [address] [place] [address] Jun, [facility] [address] [facility] [id number] [address] [place] [address] May, [facility] [address] [facility] [id number] [address] [place] [address] May, [facility] [address] [facility] [id number] [address] [place] [address] May, GERD (gastroesophageal reflu x disease) K21.9 [facility] [address] [facility] [id number] [address] [place] [address] May, Migraine without aura and wi thout status migrainosus, not intractable G43.009 [facility] [address] [facility] [id number] [address] [place] [address] May, [facility] [address] [facility] [id number] [address] [place] [address] May, [facility] [address] [facility] [id number] [address] [place] [address] May, Panlobular emphysema J43.1 a nd Acute non-recurrent maxillary sinusitis J01.00 [facility] [address] [id number] [address] [place] [address] May, Bipolar 1 disorder, depresse d, moderate F31.32 ; Panic disorder with agoraphobia F40.01 and Akathisia G25.71 [facility] [address] [id number] [address] [place] [address] Apr, [facility] [address] [id number] [address] [place] [address] Apr, [facility] [address] [facility] [id number] [address] [place] [address] Apr, Acute non-recurrent maxillar y sinusitis J01.00 [facility] [address] [facility] [id number] [address] [place] [address] Apr, Panlobular emphysema J43.1 [facility] [address] [id number] [address] [place] [address] Apr, [facility] [address] [facility] [id number] [address] [place] [address] 04 Apr, 2017 Exudative tonsillitis J03.90 and Sore throat J02.9 [facility] [address] [facility] [id number] [address] [place] [address] 17 Mar, 2017 [facility] [address] [facility] [id number] [address] [place] [address] 15 Mar, 2017 Acute non-recurrent maxillar y sinusitis J01.00 [facility] [address] [id number] [address] [place] [address] Mar, [facility] [address] [facility] [id number] [address] [place] [address] 09 Mar, 2017 Panlobular emphysema J43.1 a nd Diabetes E11.9 [facility] [address] [facility] [id number] [address] [place] [address] Mar, [facility] [address] [facility] [id number] [address] [place] [address] 24 Feb, 2017 Wheezing R06.2 and Acute rec urrent pansinusitis J01.41 [facility] [address] [facility] [id number] [address] [place] [address] Feb, [facility] [address] [facility] [id number] [address] [place] [address] Feb, Acute non-recurrent maxillar y sinusitis J01.00 [facility] [address] [facility] [id number] [address] [place] [address] Feb, Chronic obstructive pulmonar y disease, unspecified J44.9 [facility] [address] [facility] [id number] [address] [place] [address] Feb, Hypoxemia R09.02 and Chronic obstructive pulmonary disease, unspecified J44.9 [facility] [address] [facility] [id number] [address] [place] [address] 28 Jan, 2017 Bipolar 1 disorder, depresse d, moderate F31.32 ; Panic disorder with agoraphobia F40.01 ; Chronic post-traumatic stress disorder (PTSD) F43.12 ; Diabetes E11.9 and Moderate persistent asthma without complication J45.40 [facility] [address] [facility] [id number] [address] [place] [address] 22 Jan, 2017 [facility] [address] [facility] [id number] [address] [place] [id number] 19 Jan, 2017 Acute non-recurrent maxillar y sinusitis J01.00 [facility] [address] [facility] [id number] [address] [place] [id number] 18 Jan, 2017 [facility] [address] [facility] [id number] [address] [place] [id number] 18 Jan, 2017 [facility] [address] [facility] [id number] [address] [place] [id number] 12 Jan, 2017 Moderate persistent asthma w [facility] complication J45.40 and Hypoxemia R09.02 [facility] [address] [id number] [address] [place] [address] Jan, Moderate persistent asthma w [facility] complication J45.40 and Hypoxemia R09.02 [facility] [address] [id number] [address] [place] [address] Jan, [facility] [address] [id number] [address] [place] [address] Dec, Acute non-recurrent maxillar y sinusitis J01.00 [facility] [address] [id number] [address] [place] [address] Dec, Chronic obstructive pulmonar y disease, unspecified J44.9 [facility] [address] [id number] [address] [place] [address] Dec, [facility] [address] [id number] [address] [place] [address] Dec, [facility] J[facility].30 and Other chronic pain G89.29 [facility] [address] [id number] [address] [place] [address] Nov, [facility] [address] [id number] [address] [place] [address] Nov, Acute non-recurrent maxillar y sinusitis J01.00 [facility] [address] [id number] [address] [place] [address] Nov, [facility] [address] [id number] [address] [place] [address] Nov, [facility] [address] [id number] [address] [place] [address] Oct, [facility] [address] [facility] [id number] [address] [place] [address] Oct, Bipolar 1 disorder, depresse d, partial remission F31.75 ; Panic disorder with agoraphobia F40.01 and Chronic post-traumatic stress disorder (PTSD) F43.12 [facility] [address] [id number] [address] [place] [address] Oct, Acute non-recurrent maxillar y sinusitis J01.00 [facility] [address] [id number] [address] [place] [address] Oct, [facility] [address] [facility] [id number] [address] [place] [address] Oct, Diabetes E11.9 [facility] [address] [id number] [address] [place] [address] September, Diabetes E11.9 [facility] [address] [id number] [address] [place] [address] September, Diabetes E11.9 and Sinus tac hycardia R00.0 [facility] [address] [facility] [id number] [address] [place] [address] September, [facility] [address] [facility] [id number] [address] [place] [address] September, [facility] [address] [facility] [id number] [address] [place] [address] Aug, Diabetes E11.9 and Lumbago w ith sciatica, right side M54.41 [facility] [address] [facility] [id number] [address] [place] [address] Aug, [facility] [address] [facility] [id number] [address] [place] [address] Jul, Bipolar 1 disorder, depresse d, moderate F31.32 ; Panic disorder with agoraphobia F40.01 and Chronic post-traumatic stress disorder (PTSD) F43.12 [facility] [address] [facility] [id number] [address] [place] [address] Jul, Sore throat J02.9 [facility] [address] [facility] [id number] [address] [place] [address] Jul, [facility] [address] [id number] [address] [place] [address] Jul, [facility] [address] [id number] [address] [place] [address] Jul, [facility] [address] [id number] [address] [place] [address] Jul, [facility] [address] [id number] [address] [place] [id number] Jul, Sore throat J02.9 and Pharyn gitis, unspecified etiology J02.9 [facility] [address] [id number] [address] [place] [id number] Jun, [facility] [address] [id number] [address] [place] [id number] Jun, Diabetes E11.9 [facility] [address] [id number] [address] [place] [id number] Jun, [facility] [address] [id number] [address] [place] [id number] Jun, [facility] [address] [id number] [address] [place] [id number] Jun, [facility] [address] [id number] [address] [place] [id number] Jun, [facility] [address] [id number] [address] [place] [id number] Jun, [facility] [address] [id number] [address] [place] [id number] Jun, [facility] [address] [id number] [address] [place] [id number] Jun, [facility] [address] [id number] [address] [place] [id number] Jun, [facility] [address] [id number] [address] [place] [id number] May, Diabetes E11.9 ; Other chron ic pain G89.29 ; Acute recurrent maxillary sinusitis J01.01 ; Bipolar I disorder with depression F31.9 and Anxiety disorder, unspecified F41.9 [facility] [address] [id number] [address] [place] [id number] May, [place] [place] [address] [address] [facility] [id number] [address] [place] [id number] May, Diabetes E11.9 ; Bipolar I d isorder with depression F31.9 ; Anxiety disorder, unspecified F41.9 ; Other chronic pain G89.29 and Acute recurrent maxillary sinusitis J01.01 [place] [address] [address] [facility] [id number] [address] [place] [address] May, [place] [address] [address] [facility] [id number] [address] [place] [address] May, Attention deficit hyperactiv ity disorder (ADHD), predominantly inattentive type F90.0 [place] [address] [address] [facility] [id number] [address] [place] [address] May, [place] [address] [address] [facility] [id number] [address] [place] [address] Apr, Attention deficit hyperactiv ity disorder (ADHD), predominantly inattentive type F90.0 and Non-seasonal allergic rhinitis due to other allergic trigger J30.89 [place] [address] [address] [place] [id number] [address] [place] [address] Apr, Bipolar 1 disorder, depresse d, moderate F31.32 ; Panic disorder with agoraphobia F40.01 and Chronic post-traumatic stress disorder (PTSD) F43.12 [place] [address] [address] [facility] [id number] [address] [place] [address] Apr, Dental examination Z01.20 [place] [address] [address] [facility] [id number] [address] [place] [address] Mar, [place] [address] [address] [place] [id number] [address] [place] [address] Mar, [facility] [address] [id number] [address] [place] [address] Mar, Bipolar I disorder with depr ession F31.9 and Anxiety disorder, unspecified F41.9 [facility] [address] [id number] [address] [place] [address] 08 Mar, 2016 Panic disorder with agorapho syd F40.01 ; Bipolar 1 disorder, depressed, moderate F31.32 and Chronic post-traumatic stress disorder (PTSD) F43.12 [facility] [address] [id number] [address] [place] [address] Mar, [facility] [address] [id number] [address] [place] [address] Mar, Dental caries K02.9 [facility] [address] [id number] [address] [place] [address] 24 Feb, 2016 Lumbago with sciatica, left side M54.42 ; Lumbago with sciatica, right side M54.41 and Other chronic pain G89.29 [facility] [address] [id number] [address] [place] [address] Feb, [facility] [address] [id number] [address] [place] [address] Feb, [facility] [address] [id number] [address] [place] [address] 13 Feb, 2016 Bipolar I disorder with depr ession F31.9 ; PTSD (post-traumatic stress disorder) F43.10 and Mood disorder F39 [facility] [address] [id number] [address] [place] [address] Feb, [facility] [address] [id number] [address] [place] [id number] 11 Feb, 2016 Dental examination Z01.20 [facility] [address] [id number] [address] [place] [id number] 07 Feb, 2016 [facility] [address] [place] [id number] [address] [place] [address] Feb, Acute bronchitis, unspecifie d organism J20.9 [facility] [address] [place] [id number] [address] [place] [address] Jan, Mood disorder F39 ; Migraine without aura and without status migrainosus, not intractable G43.009 ; Irritable bowel syndrome, unspecified type K58.9 ; Diabetes E11.9 and Encounter for immunization Z23 [facility] [address] [address] Jan, [facility] [address] [address] Jan, [facility] [address] [address] Jan, [facility] [address] [address] Jan, [facility] [address] [address] Jan, [facility] [address] [address] Dec, Bipolar I disorder with depr ession F31.9 ; PTSD (post-traumatic stress disorder) F43.10 and Panic disorder with agoraphobia F40.01 [facility] [address] [address] Dec, Chronic obstructive pulmonar y disease, unspecified COPD type J44.9 ; Tremor R25.1 and Anxiety F41.9 [facility] [address] [address] Dec, [facility] [address] [address] Nov, Tremors of nervous system R2 5.1 and Cramping of feet R25.2 [place] [address] [place] [address] Nov, [facility] [address] [facility] [id number] [address] [place] [address] Nov, [facility] [address] [facility] [id number] [address] [place] [id number] Oct, Chronic obstructive pulmonar y disease, unspecified J44.9 [facility] [address] [facility] [id number] [address] [place] [address] Oct, [facility] [address] [facility] [id number] [address] [place] [address] Oct, Tremor R25.1 [facility] [address] [facility] [id number] [address] [place] [address] Oct, Bipolar I disorder with depr ession F31.9 ; Diabetes E11.9 ; PTSD (post-traumatic stress disorder) F43.10 and Panic disorder with agoraphobia F40.01 [facility] [address] [place] [id number] [address] [place] [address] Oct, Mood disorder F39 [facility] [address] [place] [id number] [address] [place] [address] September, [facility] [address] [facility] [id number] [address] [place] [address] September, Diabetes E11.9 ; Bipolar I d isorder with depression F31.9 ; PTSD (post-traumatic stress disorder) F43.10 and Panic disorder with agoraphobia F40.01 [facility] [address] [facility] [id number] [address] [place] [address] September, Mood disorder F39 ; Schizoaf fective disorder, unspecified type F25.9 ; Arthritis M19.90 ; Tremor R25.1 ; Acute non-recurrent frontal sinusitis J01.10 and Blood in stool K92.1 [facility] [address] [facility] [id number] [address] [place] [address] September, [place] [address] [id number] [address] [place] [address] September, Chronic obstructive pulmonar y disease, unspecified J44.9 [facility] [address] [id number] [address] [place] [address] September, Diabetes E11.9 [facility] [address] [id number] [address] [place] [address] Aug, Other bipolar disorder F31.8 9 and Anxiety disorder, unspecified F41.9 [facility] [address] [id number] [address] [place] [address] Aug, [facility] [address] [id number] [address] [place] [address] Aug, Diabetes E11.9 [facility] [address] [facility] [id number] [address] [place] [address] 18 Aug, 2015 [facility] [address] [id number] [address] [place] [address] 14 Aug, 2015 Diabetes E11.9 ; Fatigue R53 .83 and Dizziness R42 [facility] [address] [id number] [address] [place] [address] Aug, Other bipolar disorder F31.8 9 [facility] [address] [id number] [address] [place] [address] Aug, Generalized anxiety disorder F41.1 [facility] [address] [id number] [address] [place] [id number] 07 Aug, 2015 Other bipolar disorder F31.8 9 and Anxiety disorder, unspecified F41.9 [facility] [address] [id number] [address] [place] [address] Aug, [facility] [address] [id number] [address] [place] [address] Jul, [facility] [address] [id number] [address] [place] [address] Jul, [facility] [address] [facility] [id number] [address] [place] [address] Jul, Bronchitis J40 [facility] [address] [facility] [id number] [address] [place] [address] Jul, Anxiety disorder F41.9 [facility] [address] [place] [id number] [address] [place] [address] Jul, Other bipolar disorder F31.8 9 and Anxiety disorder, unspecified F41.9 [facility] [address] [facility] [id number] [address] [place] [address] Jul, Other bipolar disorder F31.8 9 and Fibromyalgia M79.7 [facility] [address] [facility] [id number] [address] [place] [address] Jul, [facility] [address] [place] [id number] [address] [place] [address] Jul, [facility] [address] [facility] [id number] [address] [place] [address] Jul, [facility] [address] [facility] [id number] [address] [place] [address] Jul, Other bipolar disorder F31.8 9 and Anxiety disorder, unspecified F41.9 [facility] [address] [place] [id number] [address] [place] [address] Jun, GERD (gastroesophageal reflu x disease) K21.9 [facility] [address] [facility] [id number] [address] [place] [address] Jun, [facility] [address] [facility] [id number] [address] [place] [address] May, [facility] [address] [place] [id number] [address] [place] [address] May, Diabetes E11.9 ; Back pain M 54.9 ; GERD (gastroesophageal reflux disease) K21.9 ; Hypertension I10 and Peripheral neuropathy G62.9 [facility] [address] [place] [id number] [place] [address] Mar, [facility] [address] [id number] [address] [place] [address] Mar, [facility] [address] [id number] [address] [place] [address] Mar, Acute sinusitis J01.90 and O titis media, left H66.92 [facility] [address] [id number] [address] [place] [address] Feb, [facility] [address] [id number] [address] [place] [address] Feb, [facility] [address] [id number] [address] [place] [address] Feb, [facility] [address] [id number] [address] [place] [address] Feb, [facility] [address] [id number] [address] [place] [address] Jan, [facility] [address] [id number] [address] [place] [address] Jan, Diabetes 250.00 and Back higinio n 724.5 [facility] [address] [id number] [address] [place] [address] Jan, [facility] [address] [id number] [address] [place] [address] Dec, Diabetes 250.00 ; Benign ess ential hypertension 401.1 and Allergic rhinitis 477.9 [facility] [address] [id number] [address] [place] [address] Dec, [facility] [address] [id number] [address] [place] [address] Dec, [facility] [address] [id number] [address] [place] [address] Dec, Psychosis 298.9 [facility] [address] [facility] [id number] [address] [place] [address] Dec, Medication side effect 995.2 0 and Generalized anxiety disorder 300.02 [facility] [address] [facility] [id number] [address] [place] [address] Dec, Acquired cognitive dysfuncti on 294.9 [facility] [address] [facility] [id number] [address] [place] [address] Dec, [facility] [address] [facility] [id number] [address] [place] [address] Dec, Unspecified myalgia and myos itis 729.1 and Generalized anxiety disorder 300.02 [facility] [address] [facility] [id number] [address] [place] [address] Nov, [facility] [address] [place] [id number] [address] [place] [address] Nov, [facility] [address] [facility] [id number] [address] [place] [address] Nov, [facility] [address] [facility] [id number] [address] [place] [address] Nov, Upper respiratory infection 465.9 and Chronic airway obstruction, not elsewhere classified 496 [facility] [address] [facility] [id number] [address] [place] [address] Nov, Hyponatremia 276.1 [facility] [address] [facility] [id number] [address] [place] [address] Oct, [facility] [address] [facility] [id number] [address] [place] [address] Oct, [facility] [address] [facility] [id number] [address] [place] [address] Oct, [facility] [address] [facility] [id number] [address] [place] [address] Oct, [facility] [address] [facility] [id number] [address] [place] [address] Oct, Hyponatremia 276.1 [facility] [address] [id number] [address] [place] [address] Oct, [facility] [address] [id number] [address] [place] [address] Oct, [facility] [address] [facility] [id number] [address] [place] [address] Oct, Generalized anxiety disorder 300.02 [facility] [address] [id number] [address] [place] [address] Oct, Generalized anxiety disorder 300.02 and Diabetes 250.00 [facility] [address] [id number] [address] [place] [address] Aug, [facility] [address] [facility] [id number] [address] [place] [address] Aug, [facility] [address] [id number] [address] [place] [address] Jul, [facility] [address] [id number] [address] [place] [address] Jul, [facility] [address] [id number] [address] [place] [address] Jun, [facility] [address] [facility] [id number] [address] [place] [address] Jun, [facility] [address] [id number] [address] [place] [address] Jun, [facility] [address] [id number] [address] [place] [id number] Jun, [facility] [address] [id number] [address] [place] [address] Jun, [facility] [address] [id number] [address] [place] [address] May, [facility] [address] [id number] [address] [place] [address] May, [facility] [address] [id number] [address] [place] [address], [place] [address] Apr, [facility] [address] [id number] [address] [place] [address], [place] [address] Apr, [facility] [address] [id number] [address] [place] [address], [place] [address] Apr, [facility] [address] [id number] [address] [place] [address], [place] [address] Apr, [facility] [address] [id number] [address] [place] [address], [place] [address] Apr, [facility] [address] [id number] [address] [place] [address], [place] [address] Apr, [facility] [address] [id number] [address] [place] [address], [place] [address] Apr, [facility] [address] [id number] [address] [place] [address], [place] [address] Apr, [facility] [address] [id number] [address] [place] [address], [place] [address] Feb, [facility] [address] [id number] [address] [place] [address], [place] [address] Feb, [facility] [address] [id number] [address] [place] [address], [place] [address] Jan, [facility] [address] [id number] [address] [place] [address], [place] [address] Jan, [facility] [address] [id number] [address] [place] [address], [place] [address] Dec, [facility] [address] [id number] [address] [place] [address], [place] [address] Dec, [facility] [address] [id number] [address] [place] [address], [place] [address] Dec, [facility] [place] [facility] [address] [id number] [address] [place] [address], [place] [address] Nov, [facility] [address] [id number] [address] [place] [address], [place] [address] Nov, [facility] [address] [id number] [address] [place] [address], [place] [address] Nov, [facility] [address] [id number] [address] [place] [address], [place] [address] Oct, [facility] [address] [id number] [address] [place] [address], [place] [address] Oct, [facility] [address] [id number] [address] [place] [address], [place] [address] Oct, [facility] [address] [id number] [address] [place] [address], [place] [address] September, [facility] [address] [id number] [address] [place] [address], [place] [address] September, [facility] [address] [id number] [address] [place] [address], [place] [address] September, [facility] [address] [id number] [address] [place] [address], [place] [address] Aug, [facility] [address] [id number] [address] [place] [address], [place] [address] Aug, [facility] [address] [id number] [address] [place] [address], [place] [address] Aug, [facility] [address] [id number] [address] [place] [address], [place] [address] 16 Aug, 2011 [facility] [address] [id number] [address] [place] [address], [place] [address] Jul, [facility] [address] [id number] [address] [place] [address], [place] [address] Jun, [facility] [address] [id number] [address] [place] [address], [place] [address] 14 Jun, 2011 [facility] [address] [id number] [address] [place] [address], [place] [address] 13 Jun, 2011 [facility] [address] [id number] [address] [place] [address], [place] [address] 07 Jun, 2011 [facility] [address] [id number] [address] [place] [address], [place] [address] 03 Jun, 2011 [facility] [address] [id number] [address] [place] [address], [place] [address] 13 May, 2011 [facility] [address] [id number] [address] [place] [address], [place] [address] May, [facility] [address] [id number] [address] [place] [address], [place] [address] May, [facility] [address] [id number] [address] [place] [address], [place] [address] May, [facility] [address] [id number] [address] [place] [address], [place] [address] Apr, [facility] [address] [id number] [address] [place] [address], [place] [address] Apr, [facility] [address] [id number] [address] [place] [address], [place] [address] Apr, [facility] [address] [id number] [address] [place] [address], [place] [address] Mar, [facility] [address] [id number] [address] [place] [id number] Mar, [facility] [address] [id number] [address] [place] [address], [place] [address] Mar, [facility] [address] [id number] [address] [place] [address], [place] [address] 13 Feb, 2011 [facility] [address] [id number] [address] [place] [address], [place] [address] 13 Feb, 2011 [facility] [address] [id number] [address] [place] [id number] 13 Feb, 2011 [facility] [address] [id number] [address] [place] [id number] 11 Nov, 2010 [facility] [address] [id number] [address] [place] [id number] 16 Sep, 2010 [facility] [address] [id number] [address] [place] [id number] Aug, [facility] [address] [id number] [address] [place] [id number] Jul, [facility] [address] [id number] [address] [place] [id number] May, [facility] [address] [id number] [address] [place] [id number] Apr, [facility] [address] [id number] [address] [place] [id number] Apr, [facility] [address] [id number] [address] [place] [id number] Apr, [facility] [address] [id number] [address] [place] [id number] Apr, [facility] [address] [id number] [address] [place] [id number] Apr, IMMUNIZATIONS No Known Immunizations SOCIAL HISTORY Never Assessed REASON FOR VISIT Prior Authorization Request PLAN OF CARE VITAL SIGNS MEDICATIONS Unknown [...]
--- OUTSIDE RECORDS SUMMARY | 2019-07-17 10:59 | XMS REPORT ---
Author Author Sujey GANDHI Organization [facility] Address [address] [place] [address] Care Team Providers Care Manager Contract Name Role Phone WHIT GANDHI Unavailable PROBLEMS Type Condition ICD9-CM Code NIA29-JQ Code Onset Dates Condition S tatus SNOMED Code Problem GERD (gastroesophageal reflux disease) K21.9 Active 022082816 Problem Back pain M54.9 Active 109234206 Problem Hypertension I10 Active 9226538 3 Problem Diabetes E11.9 Active 44646585 Problem Anxiety disorder, unspecified F41.9 Active 389906111 Problem Other bipolar disorder F31.89 Active 18318731 Problem Fibromyalgia M79.7 Active 8267870 7 Problem Panic disorder with agoraphobia F40.01 Active 97232128 Problem Chronic obstructive pulmonary disease, unspecified J44.9 Active 25085358 Problem Akathisia G25.71 Active 663079513 Problem Lumbago with sciatica, left side M54.42 Active 228398730 Problem Migraine without aura and without status migrain osus, not intractable G43.009 Active 866275468 Problem Lumbago with sciatica, right side M54.41 Active 850661358 Problem Fibrocystic disease of right breast N60.11 Active 29743711 Problem Arthritis M19.90 Active 3019617 Problem Fibrocystic disease of left breast N60.12 Active 80625400 Problem Daytime somnolence R40.0 Active 1 29895709221 Problem Slow transit constipation K59.01 Acti ve 26971819 Problem Chronic post-traumatic stress disorder (PTSD) F43. 12 Active 383725171 Problem Bipolar 1 disorder, depressed, moderate F31.32 Active 88396697 Problem Other chronic pain G89.29 Active 8 8042402 Problem Irritable bowel syndrome with both constipation and diarrh ea K58.2 Active 72013116 Problem Irritable bowel syndrome with constipation K58.1 Active 488221801 Problem Essential tremor G25.0 Active 609 475104 Problem Schizoaffective disorder, bipolar type F25.0 Active 20301930 Problem Bipolar I disorder with depression F31.9 Active 36581639 Problem Acute non-recurrent maxillary sinusitis J01.00 Active 55818726 Problem Bipolar affective disorder, remission status unspecified F31.9 Active 61200555 Problem Attention deficit hyperactiv ity disorder (ADHD), predominantly inattentive type F90.0 Active 38641425 Problem Moderate persistent asthma without complication J4 5.40 Active 473592349 Problem Panlobular emphysema J43.1 Active 1765037 Problem Bipolar 1 disorder, depressed, partial remission F 31.75 Active 11410254 Problem Mild persistent asthma without complication J45.30 Active 453290882 ALLERGIES Substance Reaction Event Type Date Status Penicillin V Potassium Unknown Drug Allergy Oct, Activ e Effexor anaphylaxis Drug Allergy Oct, Active Darvocet-N 50 Unknown Drug Allergy Oct, Active Cefdinir Swelling Drug Allergy Oct, Active Benadryl vomiting/swelling Drug Allergy Oct, Active ENCOUNTERS Encounter Location Date Diagnosis [place] [address] [facility] [id number] [address] [place] [phone] Mar, [facility] [address] [facility] [id number] [address] [place] [phone] Jan, [place] [address] [facility] [id number] [address] [place] [phone] Dec, Daytime somnolence R40.0 and Right otitis media with effusion H65.91 [facility] [address] [facility] [id number] [address] [place] [phone] Dec, [facility] [address] [facility] [id number] [address] [place] [phone] Dec, Cerebrovascular accident (CV A) due to occlusion of right cerebellar artery I63.541 [facility] [address] [facility] [id number] [address] [place] [phone] Dec, [facility] [address] [facility] [id number] [address] [place] [phone] Dec, [facility] [address] [id number] [address] [place] [phone] Nov, Bipolar 1 disorder, depresse d, partial remission F31.75 and Panic disorder with agoraphobia F40.01 [facility] [address] [id number] [address] [place] [phone] Nov, Panlobular emphysema J43.1 [facility] [address] [id number] [address] [place] [phone] Nov, Cerebrovascular accident (CV A) due to occlusion of right cerebellar artery I63.541 and Acute non-recurrent maxillary sinusitis J01.00 [facility] [address] [id number] [address] [place] [phone] Nov, Panlobular emphysema J43.1 [facility] [address] [id number] [address] [place] [phone] Nov, [facility] [address] [id number] [address] [place] [phone] Nov, [facility] [address] [id number] [address] [place] [phone] Nov, [facility] [address] [id number] [address] [place] [phone] Nov, [facility] [address] [facility] [id number] [address] [place] [phone] Nov, [facility] [address] [id number] [address] [place] [phone] Nov, [facility] [address] [facility] [id number] [address] [place] [phone] Nov, [facility] [address] [facility] [id number] [address] [place] [phone] Nov, Mild persistent asthma witho ut complication J45.30 and Irritable bowel syndrome with both constipation and diarrhea K58.2 [facility] [address] [facility] [id number] [address] [place] [phone] Nov, [facility] [address] [id number] [address] [place] [phone] Oct, [facility] [address] [id number] [address] [place] [phone] Oct, [facility] [address] [facility] [id number] [address] [place] [phone] Oct, Type 2 diabetes mellitus wit h diabetic neuropathy, unspecified whether fci insulin use E11.40 ; Diabetes E11.9 ; Slow transit constipation K59.01 ; Edema of both legs R60.0 and Dysfunction of right eustachian tube H69.81 [facility] [address] [id number] [address] [place] [phone] Oct, Frequent headaches R51 [facility] [address] [facility] [id number] [address] [place] [phone] Oct, [facility] [address] [id number] [address] [place] [phone] Oct, [facility] [address] [facility] [id number] [address] [place] [phone] Oct, [facility] [address] [id number] [address] [place] [phone] Oct, [facility] [address] [facility] [id number] [address] [place] [phone] Oct, [facility] [address] [id number] [address] [place] [phone] Oct, [facility] [address] [facility] [id number] [address] [place] [phone] Oct, [facility] [address] [id number] [address] [place] [phone] Oct, [facility] [address] [facility] [id number] [address] [place] [phone] September, Frequent headaches R51 [facility] [address] [facility] [id number] [address] [place] [phone] September, Bilateral otitis media with effusion H65.93 ; Dizziness R42 and Essential tremor G25.0 [facility] [address] [facility] [id number] [address] [place] [phone] September, Chronic obstructive pulmonar y disease, unspecified COPD type J44.9 [facility] [address] [id number] [address] [place] [phone] September, Chronic obstructive pulmonar y disease, unspecified COPD type J44.9 [facility] [address] [id number] [address] [place] [phone] September, Migraine without aura and wi thout status migrainosus, not intractable G43.009 [facility] [address] [facility] [id number] [address] [place] [phone] September, [facility] [address] [place] [id number] [address] [place] [phone] September, [facility] [address] [facility] [id number] [address] [place] [phone] September, [facility] [address] [facility] [id number] [address] [place] [phone] September, Frequent headaches R51 [facility] [address] [facility] [id number] [address] [place] [phone] Aug, [facility] [address] [facility] [id number] [address] [place] [phone] Aug, Breast mass, right N63.10 [facility] [address] [facility] [id number] [address] [place] [phone] Aug, Breast lump N63.0 [facility] [address] [facility] [id number] [address] [place] [phone] Aug, [facility] [address] [facility] [id number] [address] [place] [phone] Aug, Bipolar affective disorder, remission status unspecified F31.9 and Diabetes E11.9 [place] [address] [id number] [address] [place] [phone] 18 Aug, 2017 Diabetes E11.9 ; Schizoaffec tive disorder, bipolar type F25.0 ; Pharyngitis due to other organism J02.8 ; Panlobular emphysema J43.1 and Irritable bowel syndrome with both constipation and diarrhea K58.2 [place] [address] [facility] [id number] [address] [place] [phone] Aug, Abnormal mammogram R92.8 [place] [address] [facility] [id number] [address] [place] [phone] Aug, [place] [address] [facility] [id number] [address] [place] [phone] Aug, Bipolar 1 disorder, depresse d, moderate F31.32 ; Panic disorder with agoraphobia F40.01 and Chronic post-traumatic stress disorder (PTSD) F43.12 [place] [address] [facility] [id number] [address] [place] [phone] Aug, [place] [address] [facility] [id number] [address] [place] [phone] Aug, [place] [address] [facility] [id number] [address] [place] [phone] Aug, [place] [address] [facility] [id number] [address] [place] [phone] Jul, [place] [address] [facility] [id number] [address] [place] [phone] Jul, Mild persistent asthma witho ut complication J45.30 [place] [address] [facility] [id number] [address] [place] [id number] 19 Jul, 2017 Mild persistent asthma witho ut complication J45.30 [place] [address] [facility] [id number] [address] [place] [id number] 15 Jul, 2017 Bipolar affective disorder, remission status unspecified F31.9 ; Diabetes E11.9 and Irritable bowel syndrome with constipation K58.1 [facility] [address] [id number] [address] [place] [phone] 13 Jul, 2017 [facility] [address] [id number] [address] [place] [phone] Jul, [facility] [address] [id number] [address] [place] [phone] Jul, Frequent headaches R51 [facility] [address] [id number] [address] [place] [phone] Jul, [facility] [address] [id number] [address] [place] [phone] Jul, [facility] [address] [id number] [address] [place] [phone] Jul, [facility] [address] [id number] [address] [place] [phone] Jul, Frequent headaches R51 ; Fib rocystic disease of left breast N60.12 ; Fibrocystic disease of right breast N60.11 and Diabetes E11.9 [facility] [address] [id number] [address] [place] [phone] Jul, [facility] [address] [id number] [address] [place] [phone] Jul, [facility] [address] [facility] [id number] [address] [place] [phone] Jun, Exudative tonsillitis J03.90 [facility] [address] [id number] [address] [place] [phone] Jun, [facility] [address] [facility] [id number] [address] [place] [phone] Jun, [facility] [address] [facility] [id number] [address] [place] [phone] 15 Jun, 2017 Mild persistent asthma witho ut complication J45.30 ; Chronic obstructive pulmonary disease, unspecified COPD type J44.9 and Exudative tonsillitis J03.90 [facility] [address] [facility] [id number] [address] [place] [phone] 13 Jun, 2017 Encounter for immunization Z 23 [facility] [address] [facility] [id number] [address] [place] [phone] 12 Jun, 2017 [facility] [address] [facility] [id number] [address] [place] [phone] Jun, [facility] [address] [facility] [id number] [address] [place] [phone] Jun, [facility] [address] [facility] [id number] [place] [phone] 06 Jun, 2017 Tonsillitis J03.90 [facility] [address] [place] [id number] [place] [phone] Jun, [facility] [address] [phone] Jun, Acute non-recurrent maxillar y sinusitis J01.00 [facility] [address] [place] [id number] [address] [place] [phone] Jun, [facility] [address] [place] [id number] [address] [place] [phone] May, [facility] [address] [place] [id number] [address] [place] [phone] May, [facility] [address] [phone] May, GERD (gastroesophageal reflu x disease) K21.9 [facility] [address] [phone] May, Migraine without aura and wi thout status migrainosus, not intractable G43.009 [facility] [address] [place] [id number] [address] [place] [phone] May, [facility] [address] [place] [id number] [address] [place] [phone] May, [facility] [address] [facility] [id number] [address] [place] [phone] May, Panlobular emphysema J43.1 a nd Acute non-recurrent maxillary sinusitis J01.00 [facility] [address] [facility] [id number] [address] [place] [phone] May, Bipolar 1 disorder, depresse d, moderate F31.32 ; Panic disorder with agoraphobia F40.01 and Akathisia G25.71 [facility] [address] [id number] [address] [place] [phone] Apr, [facility] [address] [facility] [id number] [address] [place] [phone] Apr, [facility] [address] [facility] [id number] [address] [place] [phone] Apr, Acute non-recurrent maxillar y sinusitis J01.00 [facility] [address] [facility] [id number] [address] [place] [phone] Apr, Panlobular emphysema J43.1 [facility] [address] [facility] [id number] [address] [place] [phone] Apr, [facility] [address] [facility] [id number] [address] [place] [phone] Apr, Sore throat J02.9 and Exudat minoo tonsillitis J03.90 [facility] [address] [facility] [id number] [address] [place] [phone] Mar, [facility] [address] [facility] [id number] [address] [place] [phone] 15 Mar, 2017 Acute non-recurrent maxillar y sinusitis J01.00 [facility] [address] [facility] [id number] [address] [place] [phone] Mar, [facility] [address] [facility] [id number] [address] [place] [phone] 09 Mar, 2017 Panlobular emphysema J43.1 a nd Diabetes E11.9 [facility] [address] [facility] [id number] [address] [place] [phone] 06 Mar, 2017 [facility] [address] [facility] [id number] [address] [place] [phone] 24 Feb, 2017 Wheezing R06.2 and Acute rec urrent pansinusitis J01.41 [facility] [address] [facility] [id number] [address] [place] [phone] Feb, [facility] [address] [facility] [id number] [address] [place] [phone] Feb, Acute non-recurrent maxillar y sinusitis J01.00 [place] [address] [facility] [id number] [address] [place] [phone] Feb, Chronic obstructive pulmonar y disease, unspecified J44.9 [facility] [address] [facility] [id number] [address] [place] [phone] 02 Feb, 2017 Hypoxemia R09.02 and Chronic obstructive pulmonary disease, unspecified J44.9 [facility] [address] [facility] [id number] [address] [place] [phone] 28 Jan, 2017 Bipolar 1 disorder, depresse d, moderate F31.32 ; Panic disorder with agoraphobia F40.01 ; Chronic post-traumatic stress disorder (PTSD) F43.12 ; Diabetes E11.9 and Moderate persistent asthma without complication J45.40 [facility] [address] [facility] [id number] [address] [place] [phone] Jan, [facility] [address] [facility] [id number] [address] [place] [phone] 19 Jan, 2017 Acute non-recurrent maxillar y sinusitis J01.00 [place] [address] [place] [id number] [address] [place] [phone] 18 Jan, 2017 [facility] [address] [place] [id number] [address] [place] [phone] 18 Jan, 2017 [facility] [address] [id number] [address] [place] [phone] Jan, Moderate persistent asthma w ithout complication J45.40 and Hypoxemia R09.02 [facility] [address] [id number] [address] [place] [phone] Jan, Moderate persistent asthma w ithout complication J45.40 and Hypoxemia R09.02 [facility] [address] [id number] [address] [place] [phone] Jan, [facility] [address] [id number] [address] [place] [phone] Dec, Acute non-recurrent maxillar y sinusitis J01.00 [facility] [address] [id number] [address] [place] [phone] Dec, Chronic obstructive pulmonar y disease, unspecified J44.9 [facility] [address] [id number] [address] [place] [phone] Dec, [facility] [address] [id number] [address] [place] [id number] Dec, Mild persistent asthma witho ut complication J45.30 and Other chronic pain G89.29 [facility] [address] [id number] [address] [place] [phone] Nov, [facility] [address] [id number] [address] [place] [phone] Nov, Acute non-recurrent maxillar y sinusitis J01.00 [facility] [address] [id number] [address] [place] [phone] Nov, [facility] [address] [id number] [address] [place] [phone] Nov, [facility] [address] [id number] [address] [place] [phone] Oct, [facility] [address] [id number] [address] [place] [phone] Oct, Bipolar 1 disorder, depresse d, partial remission F31.75 ; Panic disorder with agoraphobia F40.01 and Chronic post-traumatic stress disorder (PTSD) F43.12 [place] [address] [facility] [id number] [address] [place] [phone] Oct, Acute non-recurrent maxillar y sinusitis J01.00 [place] [address] [id number] [address] [place] [phone] Oct, [place] [address] [id number] [address] [place] [phone] Oct, Diabetes E11.9 [place] [address] [facility] [id number] [address] [place] [phone] September, Diabetes E11.9 [place] [address] [facility] [id number] [address] [place] [phone] September, Diabetes E11.9 and Sinus tac hycardia R00.0 [place] [address] [id number] [address] [place] [phone] September, [place] [address] [facility] [id number] [address] [place] [phone] September, [place] [address] [facility] [id number] [address] [place] [phone] Aug, Diabetes E11.9 and Lumbago w ith sciatica, right side M54.41 [place] [address] [id number] [address] [place] [phone] Aug, [place] [address] [facility] [id number] [address] [place] [phone] Jul, Bipolar 1 disorder, depresse d, moderate F31.32 ; Panic disorder with agoraphobia F40.01 and Chronic post-traumatic stress disorder (PTSD) F43.12 [place] [address] [facility] [id number] [address] [place] [phone] Jul, Sore throat J02.9 [facility] [address] [id number] [address] [place] [phone] 16 Jul, 2016 [facility] [address] [id number] [address] [place] [phone] 15 Jul, 2016 [facility] [address] [id number] [address] [place] [id number] Jul, [facility] [address] [id number] [address] [place] [phone] 06 Jul, 2016 [facility] [address] [facility] [id number] [address] [place] [phone] Jul, Sore throat J02.9 and Pharyn gitis, unspecified etiology J02.9 [facility] [address] [id number] [address] [place] [phone] 27 Jun, 2016 [facility] [address] [id number] [address] [place] [phone] 23 Jun, 2016 Diabetes E11.9 [facility] [address] [id number] [address] [place] [phone] 20 Jun, 2016 [facility] [address] [id number] [address] [place] [phone] 16 Jun, 2016 [facility] [address] [id number] [address] [place] [phone] 16 Jun, 2016 [facility] [address] [id number] [address] [place] [phone] 16 Jun, 2016 [facility] [address] [id number] [address] [place] [id number] 16 Jun, 2016 [facility] [address] [facility] [id number] [address] [place] [phone] 15 Jun, 2016 [facility] [address] [facility] [id number] [address] [place] [phone] 10 Jun, 2016 [facility] [id number] [place] [address] Jun, [facility] [address] [place] [id number] [place] [address] May, Diabetes E11.9 ; Bipolar I d isorder with depression F31.9 ; Other chronic pain G89.29 ; Acute recurrent maxillary sinusitis J01.01 and Anxiety disorder, unspecified F41.9 [place] [address] [place] [id number] [address] [place] [phone] May, [place] [address] [place] [id number] [address] [place] [address] May, Diabetes E11.9 ; Bipolar I d isorder with depression F31.9 ; Anxiety disorder, unspecified F41.9 ; Other chronic pain G89.29 and Acute recurrent maxillary sinusitis J01.01 [place] [address] [address] May, [place] [address] [address] May, Attention deficit hyperactiv ity disorder (ADHD), predominantly inattentive type F90.0 [place] [address] [address] May, [place] [address] [place] [id number] [address] [place] [address] Apr, Attention deficit hyperactiv ity disorder (ADHD), predominantly inattentive type F90.0 and Non-seasonal allergic rhinitis due to other allergic trigger J30.89 [place] [address] [place] [id number] [address] [place] [address] Apr, Bipolar 1 disorder, depresse d, moderate F31.32 ; Panic disorder with agoraphobia F40.01 and Chronic post-traumatic stress disorder (PTSD) F43.12 [place] [address] [place] [id number] [address] [place] [address] Apr, Dental examination Z01.20 [facility] [address] [id number] [address] [place] [address] Mar, [facility] [address] [id number] [address] [place] [address] Mar, [facility] [address] [facility] [id number] [address] [place] [phone] Mar, Bipolar I disorder with depr ession F31.9 and Anxiety disorder, unspecified F41.9 [place] [address] [id number] [address] [place] [phone] 08 Mar, 2016 Panic disorder with agorapho syd F40.01 ; Bipolar 1 disorder, depressed, moderate F31.32 and Chronic post-traumatic stress disorder (PTSD) F43.12 [place] [address] [facility] [id number] [address] [place] [phone] Mar, [place] [address] [id number] [address] [place] [phone] Mar, Dental caries K02.9 [place] [address] [facility] [id number] [address] [place] [address] 24 Feb, 2016 Lumbago with sciatica, left side M54.42 ; Lumbago with sciatica, right side M54.41 and Other chronic pain G89.29 [place] [address] [facility] [id number] [address] [place] [phone] Feb, [facility] [address] [id number] [address] [place] [phone] 14 Feb, 2016 [place] [address] [facility] [id number] [address] [place] [phone] Feb, Bipolar I disorder with depr ession F31.9 ; PTSD (post-traumatic stress disorder) F43.10 and Mood disorder F39 [facility] [address] [facility] [id number] [address] [place] [phone] Feb, [facility] [address] [address] 11 Feb, 2016 Dental examination Z01.20 [facility] [address] [address] Feb, [facility] [address] [address] Feb, Acute bronchitis, unspecifie d organism J20.9 [facility] [address] [address] Jan, Mood disorder F39 ; Migraine without aura and without status migrainosus, not intractable G43.009 ; Irritable bowel syndrome, unspecified type K58.9 ; Diabetes E11.9 and Encounter for immunization Z23 [place] [address] [address] 15 Jan, 2016 [place] [address] [address] Jan, [facility] [address] [address] Jan, [place] [address] [address] Jan, [place] [address] [address] Jan, [facility] [address] [address] Dec, Bipolar I disorder with depr ession F31.9 ; PTSD (post-traumatic stress disorder) F43.10 and Panic disorder with agoraphobia F40.01 [place] [address] [address] Dec, Chronic obstructive pulmonar y disease, unspecified COPD type J44.9 ; Tremor R25.1 and Anxiety F41.9 [place] [address] [address] Dec, [facility] [address] [id number] [address] [place] [address] Nov, Tremors of nervous system R2 5.1 and Cramping of feet R25.2 [facility] [address] [id number] [address] [place] [address] Nov, [facility] [address] [id number] [address] [place] [address] Nov, [facility] [address] [id number] [address] [place] [address] Oct, Chronic obstructive pulmonar y disease, unspecified J44.9 [facility] [address] [id number] [address] [place] [phone] Oct, [facility] [address] [id number] [address] [place] [address] Oct, Tremor R25.1 [facility] [address] [id number] [address] [place] [phone] Oct, Bipolar I disorder with depr ession F31.9 ; Diabetes E11.9 ; PTSD (post-traumatic stress disorder) F43.10 and Panic disorder with agoraphobia F40.01 [facility] [address] [id number] [address] [place] [address] Oct, Mood disorder F39 [facility] [address] [id number] [address] [place] [phone] September, [facility] [address] [id number] [address] [place] [address] September, Diabetes E11.9 ; Bipolar I d isorder with depression F31.9 ; PTSD (post-traumatic stress disorder) F43.10 and Panic disorder with agoraphobia F40.01 [facility] [address] [facility] [id number] [address] [place] [address] September, Mood disorder F39 ; Schizoaf fective disorder, unspecified type F25.9 ; Arthritis M19.90 ; Tremor R25.1 ; Acute non-recurrent frontal sinusitis J01.10 and Blood in stool K92.1 [facility] [address] [place] [id number] [address] [place] [phone] September, [facility] [address] [address] [id number] [address] [place] [phone] September, Chronic obstructive pulmonar y disease, unspecified J44.9 [facility] [address] [place] [address] [id number] [address] [place] [address] September, Diabetes E11.9 [place] [address] [place] [id number] [address] [place] [address] Aug, Other bipolar disorder F31.8 9 and Anxiety disorder, unspecified F41.9 [place] [id number] [place] [phone] Aug, [place] [address] [place] [id number] [address] [place] [phone] Aug, Diabetes E11.9 [place] [address] [place] [id number] [address] [place] [phone] 18 Aug, 2015 [place] [address] [place] [id number] [address] [place] [id number] 14 Aug, 2015 Diabetes E11.9 ; Fatigue R53 .83 and Dizziness R42 [place] [address] [place] [id number] [address] [place] [address] 13 Aug, 2015 Other bipolar disorder F31.8 [address] [place] [address] [place] [id number] [address] [place] [phone] 07 Aug, 2015 Generalized anxiety disorder F41.1 [place] [address] [place] [id number] [address] [place] [phone] 07 Aug, 2015 Other bipolar disorder F31.8 9 and Anxiety disorder, unspecified F41.9 [place] [address] [place] [id number] [address] [place] [phone] Aug, [facility] [address] [id number] [address] [place] [phone] Jul, [facility] [address] [id number] [address] [place] [phone] Jul, [facility] [address] [facility] [id number] [address] [place] [address] Jul, Bronchitis J40 [facility] [address] [facility] [id number] [address] [place] [phone] Jul, Anxiety disorder F41.9 [facility] [address] [facility] [id number] [address] [place] [address] Jul, Other bipolar disorder F31.8 9 and Anxiety disorder, unspecified F41.9 [facility] [address] [facility] [id number] [address] [place] [phone] Jul, Other bipolar disorder F31.8 9 and Fibromyalgia M79.7 [facility] [address] [id number] [address] [place] [phone] Jul, [facility] [address] [facility] [id number] [address] [place] [phone] Jul, [facility] [address] [facility] [id number] [address] [place] [phone] Jul, [facility] [address] [facility] [id number] [address] [place] [phone] Jul, Other bipolar disorder F31.8 9 and Anxiety disorder, unspecified F41.9 [facility] [address] [id number] [address] [place] [phone] Jun, GERD (gastroesophageal reflu x disease) K21.9 [facility] [address] [facility] [id number] [address] [place] [address] Jun, [facility] [address] [facility] [id number] [address] [place] [phone] May, [facility] [address] [facility] [id number] [address] [place] [phone] 14 May, 2015 Diabetes E11.9 ; Back pain M 54.9 ; GERD (gastroesophageal reflux disease) K21.9 ; Hypertension I10 and Peripheral neuropathy G62.9 [facility] [address] [facility] [id number] [address] [place] [phone] Mar, [facility] [address] [place] [id number] [place] [address] Mar, [facility] [address] [facility] [id number] [address] [place] [address] Mar, Acute sinusitis J01.90 and O titis media, left H66.92 [facility] [address] [place] [id number] [place] [address] Feb, [facility] [address] [address] Feb, [facility] [address] [address] Feb, [facility] [address] [address] Feb, [facility] [address] [place] [id number] [place] [address] Jan, [facility] [address] [address] Jan, Diabetes 250.00 and Back higinio n 724.5 [facility] [address] [facility] [id number] [address] [place] [address] Jan, [facility] [address] [address] Dec, Diabetes 250.00 ; Benign ess ential hypertension 401.1 and Allergic rhinitis 477.9 [facility] [address] [place] [id number] [address] [place] [phone] Dec, [facility] [address] [facility] [id number] [address] [place] [phone] Dec, [facility] [address] [facility] [id number] [address] [place] [phone] Dec, Psychosis 298.9 [facility] [address] [facility] [id number] [address] [place] [address] Dec, Medication side effect 995.2 0 and Generalized anxiety disorder 300.02 [facility] [address] [facility] [id number] [address] [place] [phone] Dec, Acquired cognitive dysfuncti on 294.9 [facility] [address] [facility] [id number] [address] [place] [address] Dec, [facility] [address] [place] [id number] [address] [place] [address] Dec, Unspecified myalgia and myos itis 729.1 and Generalized anxiety disorder 300.02 [facility] [address] [place] [id number] [address] [place] [phone] Nov, [facility] [address] [facility] [id number] [address] [place] [phone] Nov, [facility] [address] [place] [id number] [address] [place] [phone] Nov, [facility] [address] [facility] [id number] [address] [place] [address] Nov, Upper respiratory infection 465.9 and Chronic airway obstruction, not elsewhere classified 496 [facility] [address] [facility] [id number] [address] [place] [address] Nov, Hyponatremia 276.1 [facility] [address] [facility] [id number] [address] [place] [phone] Oct, [facility] [address] [facility] [id number] [address] [place] [phone] Oct, [facility] [address] [place] [id number] [address] [place] [phone] Oct, [facility] [address] [id number] [address] [place] [phone] Oct, [facility] [address] [facility] [id number] [address] [place] [phone] 04 Oct, 2014 Hyponatremia 276.1 [facility] [address] [facility] [id number] [address] [place] [phone] Oct, [facility] [address] [id number] [address] [place] [address] Oct, [facility] [address] [id number] [address] [place] [address] Oct, Generalized anxiety disorder 300.02 [facility] [address] [facility] [id number] [address] [place] [address] Oct, Generalized anxiety disorder 300.02 and Diabetes 250.00 [facility] [address] [id number] [address] [place] [phone] Aug, [facility] [address] [facility] [id number] [address] [place] [address] Aug, [facility] [address] [facility] [id number] [address] [place] [phone] Jul, [facility] [address] [facility] [id number] [address] [place] [phone] Jul, [facility] [address] [id number] [address] [place] [phone] Jun, [facility] [address] [id number] [address] [place] [phone] Jun, [facility] [address] [id number] [address] [place] [phone] Jun, [facility] [address] [facility] [id number] [address] [place] [phone] Jun, [facility] [address] [id number] [address] [place] [address], [place] [address] 06 Jun, 2013 [facility] [address] [id number] [address] [place] [address], [place] [address] May, [facility] [address] [id number] [address] [place] [address], [place] [address] May, [facility] [address] [id number] [address] [place] [address], [place] [address] Apr, [facility] [address] [id number] [address] [place] [address], [place] [address] Apr, [facility] [address] [id number] [address] [place] [address], [place] [address] Apr, [facility] [address] [id number] [address] [place] [address], [place] [address] Apr, [facility] [address] [id number] [address] [place] [address], [place] [address] Apr, [facility] [address] [id number] [address] [place] [address], [place] [address] Apr, [facility] [address] [id number] [address] [place] [address], [place] [address] Apr, [facility] [address] [id number] [address] [place] [address], [place] [address] Apr, [facility] [address] [id number] [address] [place] [address], [place] [address] Feb, [facility] [address] [id number] [address] [place] [address], [place] [address] Feb, [facility] [address] [id number] [address] [place] [address], [place] [address] Jan, [facility] [address] [id number] [address] [place] [address], [place] [address] Jan, [facility] [address] [id number] [address] [place] [address], [place] [address] Dec, [facility] [address] [id number] [address] [place] [address], [place] [address] Dec, [facility] [address] [id number] [address] [place] [address], [place] [address] Dec, [facility] [address] [id number] [address] [place] [address], [place] [address] Nov, [facility] [address] [id number] [address] [place] [address], [place] [address] Nov, [facility] [address] [id number] [address] [place] [address], [place] [address] Nov, [facility] [address] [id number] [address] [place] [address], [place] [address] Oct, [facility] [address] [id number] [address] [place] [address], [place] [address] Oct, [facility] [address] [id number] [address] [place] [address], [place] [address] Oct, [facility] [address] [id number] [address] [place] [address], [place] [address] September, [facility] [address] [id number] [address] [place] [address], [place] [address] September, [facility] [address] [id number] [address] [place] [address], [place] [address] September, [facility] [address] [id number] [address] [place] [address], [place] [address] Aug, [facility] [address] [id number] [address] [place] [address], [place] [address] Aug, [facility] [address] [id number] [address] [place] [address], [place] [address] Aug, [facility] [address] [id number] [address] [place] [address], [place] [address] 16 Aug, 2011 [facility] [address] [id number] [address] [place] [address], [place] [address] Jul, [facility] [address] [id number] [address] [place] [address], [place] [address] Jun, [facility] [address] [id number] [address] [place] [address], [place] [address] 14 Jun, 2011 [facility] [address] [id number] [address] [place] [address], [place] [address] 13 Jun, 2011 [facility] [address] [id number] [address] [place] [address], [place] [address] 07 Jun, 2011 [facility] [address] [id number] [address] [place] [address], [place] [address] 03 Jun, 2011 [facility] [address] [id number] [address] [place] [address], [place] [address] 13 May, 2011 [facility] [address] [id number] [address] [place] [address], [place] [address] 10 May, 2011 [facility] [address] [id number] [address] [place] [address], [place] [address] May, [facility] [address] [id number] [address] [place] [address], [place] [address] 04 May, 2011 [facility] [address] [id number] [address] [place] [address], [place] [address] Apr, [facility] [address] [id number] [address] [place] [address], [place] [address] Apr, [facility] [address] [id number] [address] [place] [address], [place] [id number] 05 Apr, 2011 [facility] [address] [id number] [address] [place] [address], [place] [address] Mar, [facility] [address] [id number] [address] [place] [address], [place] [phone] Mar, [facility] [address] [id number] [address] [place] [address], [place] [address] Mar, [facility] [address] [id number] [address] [place] [id number] Feb, [facility] [address] [id number] [address] [place] [phone] Feb, [facility] [address] [id number] [address] [place] [phone] Feb, [facility] [address] [id number] [address] [place] [phone] Nov, [facility] [address] [id number] [address] [place] [phone] September, [facility] [address] [id number] [address] [place] [phone] Aug, [facility] [address] [id number] [address] [place] [phone] Jul, [facility] [address] [id number] [address] [place] [phone] May, [facility] [address] [id number] [address] [place] [phone] Apr, [facility] [address] [id number] [address] [place] [phone] Apr, [facility] [address] [id number] [address] [place] [phone] Apr, [facility] [address] [id number] [address] [place] [phone] Apr, [facility] [address] [id number] [address] [place] [phone] Apr, IMMUNIZATIONS No Known Immunizations SOCIAL HISTORY Never Assessed REASON FOR VISIT Pain management (chronic), PT reports she has been taking miralax once a day and has not seemed to help with constipation. PT questions if she can take anymore - Umair BASURTO PLAN OF CARE Activity Details Follow Up 4 Weeks Reason: VITAL SIGNS Height 66 in 2017-11-04 Weight 110 lbs 2017-11-04 Temperature 98.2 degrees Fahrenheit 2017-11-04 Heart Rate 86 bpm 2017-11-04 Respiratory Rate 18 2017-11-04 Oximetry on room air:93 % 2017-11-04 BMI 17.75 kg/m2 2017-11-04 Blood pressure systolic 130 mmHg 2017-11-04 Blood pressure diastolic 80 mmHg 2017-11-04 MEDICATIONS Medication Instructions Dosage Frequency Start Date End Date Duration S tatus Diclofenac Sodium 1 % Transdermal Four times a day 2-4- grams to affected areas 6h Jun, 30 days Active Sudafed 30 MG Orally every 6 hrs 1 tablet as needed 6h September, Active Guaifenesin 400 mg Orally every 4 hrs 1 tablet 4h Active Lisinopril 30 MG Orally Once a day 1 tablet 24h Active Lamictal 100 mg Orally 2 times a day for depression 1 tablet September, Active Loxapine Succinate 10 mg Orally twice a day for mood 1 capsule Active Qvar 80 MCG/ACT Inhalation Twice a day 1 puff 12h Oct, 30 days Active Nexium 40 mg 1 capsule 24h Active Metoprolol Tartrate 50 mg Orally Twice a day TAKE ONE TABLE T BY MOUTH TWICE DAILY WITH FOOD 12h Active Ventolin HFA 108 (90 Base) MCG/ACT Inhalation every 4 hrs 2 puffs a s needed 4h Dec, Active Clonidine HCl 0.1 MG 1 tablet 8h Ac tive MiraLax - Orally 3 times a day until you have a BM then Reduce to once daily. 17 grams mixed with 8 oz of fluid 30 days Active Amlodipine Besylate 5 MG Orally Once a day 1 tablet 24h Active Atorvastatin Calcium 10 MG Orally Once a day 1 tablet 24h Active Multivitamin Adult - Act minoo Hydrochlorothiazide 12.5 MG Orally Once a day 1 tablet in the morni ng 24h Oct, 30 day(s) Active Glucosamine 1000 MG Orally Once a day 2 capsules 24h Active [place] 7.5-325 MG Orally 3 times a day 1 tablet as needed 8h Oct, 28 days Active Metformin HCl 1000 MG Orally Twice a day 1 tablet with meals 12h Aug, 30 day(s) Active Xopenex 1.25 MG/3ML Inhalation 4 times a day prn 3 ml Dec, 30 days Active Singulair 10 mg Orally Once a day 1 tablet in the evening 24h Oct, 30 day(s) Active Breo Ellipta 200-25 MCG/INH Inhalation Once a day 1 puff 24h 30 days Active Dicyclomine HCl 20 mg Orally Four times a day 1 tablet 6h 2017 30 day(s) Active Propranolol HCl 20 mg Orally Twice a day 1 tablet 12h September, 30 day(s) Active Cetirizine HCl 10 mg Orally Once a day 1 tablet 24h Apr, 30 day(s) Active Trazodone HCl 100 mg Orally for sleep 1 tablet at bedtime Jan Active Adderall XR 20 mg Orally Once a day for depression 1 capsule in the morning Oct, 28 days Active BusPIRone HCl 15 mg Orally 3 times a day for anxiety 1 tablet Jan, Active Insulin Pen Needle 32G X 6 MM as directed 24h Oct, Active Gabapentin 800 MG Orally Three times a day 1 tablet 8h Jul, Active Benztropine Mesylate 0.5 MG Orally 3 times a day-Q AM, 4pm and bedtime for restlessness 1 tablet Mar, Active Anoro Ellipta 62.5-25 MCG/INH Inhalation Once a day 1 puff 24h Oct, 30 days Active Ibuprofen 600 MG TAKE ONE TABLET BY MOUTH THREE TIMES DAILY 33 Active Lorazepam 2 MG Orally in the AM and noon and 4pm 1 tablet Jul, 28 days Active Baclofen 20 MG Orally Three times a day 1 tablet with food or milk 8h 30 Active Nebulizer 1 as directed Jul, Act minoo Ondansetron 4 MG Orally every 8 hrs PRN 1 tablet on the t ongue and allow to dissolve Apr, 30 days Active Calcium 600 + D 600-200 MG-UNIT Active Acyzugtehc-IHQO-Ucdvavya 50-325-40 MG Orally 3 times a day 1 cap yg as needed 8h Jun, Active Levemir FlexTouch 100 UNIT/ML Subcutaneous Once a day 7 units 24h September, 30 days Active PredniSONE 20 mg Orally Once a day 2 tablets 24h Oct, Nov, 03 days Active Aspir-81 81 MG Orally Once a day 1 tablet 24h Active Flonase 50 mcg/act 1 spray in each nostril 12h Apr, Active Gaviscon 80-14.2 MG Orally 4 times a day 4 tablet 6h Active RESULTS No Results PROCEDURES Procedure Date Ordered Result Body Site GLYCATED HEMOGLOBIN TEST November 04, 2017 [facility] VISIT ESTABLISHED PATIENT November 04, 2017 [facility] November [facility], 2017 [facility]* November 04, 2017 INSTRUCTIONS MEDICATIONS ADMINISTERED No Known [...]
--- OUTSIDE RECORDS SUMMARY | 2019-07-17 10:59 | XMS REPORT ---
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 Name Role Phone WHIT GANDHI Unavailable PROBLEMS Type Condition ICD9-CM Code YEQ06-EX Code Onset Dates Condition S tatus SNOMED Code Problem GERD (gastroesophageal reflux disease) K21.9 Active 433799739 Problem Back pain M54.9 Active 943957081 Problem Hypertension I10 Active 9064774 3 Problem Diabetes E11.9 Active 24014561 Problem Anxiety disorder, unspecified F41.9 Active 743666782 Problem Other bipolar disorder F31.89 Active 80789055 Problem Fibromyalgia M79.7 Active 0593849 7 Problem Panic disorder with agoraphobia F40.01 Active 90163437 Problem Chronic obstructive pulmonary disease, unspecified J44.9 Active 04758314 Problem Akathisia G25.71 Active 941770166 Problem Lumbago with sciatica, left side M54.42 Active 916651626 Problem Migraine without aura and without status migrain osus, not intractable G43.009 Active 869086259 Problem Lumbago with sciatica, right side M54.41 Active 944479942 Problem Fibrocystic disease of right breast N60.11 Active 14680917 Problem Arthritis M19.90 Active 5188273 Problem Fibrocystic disease of left breast N60.12 Active 40164487 Problem Daytime somnolence R40.0 Active 1 21574949233 Problem Slow transit constipation K59.01 Acti ve 24020931 Problem Chronic post-traumatic stress disorder (PTSD) F43. 12 Active 786229535 Problem Bipolar 1 disorder, depressed, moderate F31.32 Active 71916319 Problem Other chronic pain G89.29 Active 8 6333152 Problem Irritable bowel syndrome with both constipation and diarrh ea K58.2 Active 82832897 Problem Irritable bowel syndrome with constipation K58.1 Active 871431647 Problem Essential tremor G25.0 Active 609 300016 Problem Schizoaffective disorder, bipolar type F25.0 Active 46758703 Problem Bipolar I disorder with depression F31.9 Active 04675192 Problem Acute non-recurrent maxillary sinusitis J01.00 Active 66953178 Problem Bipolar affective disorder, remission status unspecified F31.9 Active 70293379 Problem Attention deficit hyperactiv ity disorder (ADHD), predominantly inattentive type F90.0 Active 58512185 Problem Moderate persistent asthma without complication J4 5.40 Active 428859398 Problem Panlobular emphysema J43.1 Active 5160161 Problem Bipolar 1 disorder, depressed, partial remission F 31.75 Active 01132723 Problem Mild persistent asthma without complication J45.30 Active [id number] ALLERGIES No Information ENCOUNTERS Encounter Location Date Diagnosis [place] [address] [place] [id number] [place] [phone] Mar, [place] [address] [address] Jan, [place] [address] [address] Dec, Daytime somnolence R40.0 and Right otitis media with effusion H65.91 [place] [id number] [place] [address] Dec, [place] [address] [place] [id number] [address] [place] [id number] Dec, Cerebrovascular accident (CV A) due to occlusion of right cerebellar artery I63.541 [place] [address] [place] [id number] [address] [place] [id number] Dec, [facility] [address] [place] [id number] [address] [place] [id number] Dec, [place] [address] [place] [id number] [address] [place] [id number] Nov, Bipolar 1 disorder, depresse d, partial remission F31.75 and Panic disorder with agoraphobia F40.01 [facility] [address] [place] [id number] [address] [place] [phone] Nov, Panlobular emphysema J43.1 [facility] [address] [id number] [address] [place] [id number] Nov, Cerebrovascular accident (CV A) due to occlusion of right cerebellar artery I63.541 and Acute non-recurrent maxillary sinusitis J01.00 [facility] [address] [id number] [address] [place] [phone] Nov, Panlobular emphysema J43.1 [facility] [address] [id number] [address] [place] [phone] Nov, [facility] [address] [id number] [address] [place] [id number] Nov, [facility] [address] [id number] [address] [place] [phone] Nov, [facility] [address] [id number] [address] [place] [phone] Nov, [facility] [address] [id number] [address] [place] [phone] Nov, [facility] [address] [id number] [address] [place] [id number] Nov, [facility] [address] [id number] [address] [place] [phone] Nov, [facility] [address] [id number] [address] [place] [phone] Nov, Mild persistent asthma witho ut complication J45.30 and Irritable bowel syndrome with both constipation and diarrhea K58.2 [facility] [address] [id number] [address] [place] [phone] Nov, [facility] [address] [id number] [address] [place] [phone] Oct, [facility] [address] [id number] [address] [place] [id number] Oct, [facility] [address] [id number] [address] [place] [id number] Oct, Type 2 diabetes mellitus wit h diabetic neuropathy, 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 ; Diabetes E11.9 ; Slow transit constipation K59.01 ; Edema of both legs R60.0 and Dysfunction of right eustachian tube H69.81 [facility] [address] [id number] [address] [place] [phone] Oct, Frequent headaches R51 [facility] [address] [id number] [address] [place] [phone] Oct, [facility] [address] [id number] [address] [place] [phone] Oct, [facility] [address] [facility] [id number] [address] [place] [id number] Oct, [facility] [address] [facility] [id number] [address] [place] [id number] Oct, [facility] [address] [facility] [id number] [address] [place] [phone] Oct, [facility] [address] [facility] [id number] [address] [place] [phone] Oct, [facility] [address] [facility] [id number] [address] [place] [phone] Oct, [facility] [address] [facility] [id number] [address] [place] [phone] Oct, [facility] [address] [facility] [id number] [address] [place] [phone] September, Frequent headaches R51 [facility] [address] [facility] [id number] [address] [place] [phone] September, Bilateral otitis media with effusion H65.93 ; Dizziness R42 and Essential tremor G25.0 [facility] [address] [id number] [address] [place] [phone] September, Chronic obstructive pulmonar y disease, unspecified COPD type J44.9 [facility] [address] [id number] [address] [place] [phone] September, Chronic obstructive pulmonar y disease, unspecified COPD type J44.9 [facility] [address] [id number] [address] [place] [phone] September, Migraine without aura and wi thout status migrainosus, not intractable G43.009 [facility] [address] [id number] [address] [place] [phone] September, [facility] [address] [id number] [address] [place] [phone] September, [facility] [address] [facility] [id number] [address] [place] [phone] September, [facility] [address] [facility] [id number] [address] [place] [phone] September, Frequent headaches R51 [facility] [address] [id number] [address] [place] [id number] Aug, [facility] [address] [facility] [id number] [address] [place] [phone] Aug, Breast mass, right N63.10 [facility] [address] [facility] [id number] [address] [place] [phone] Aug, Breast lump N63.0 [facility] [address] [facility] [id number] [address] [place] [phone] Aug, [facility] [address] [facility] [id number] [address] [place] [phone] Aug, Bipolar affective disorder, remission status unspecified F31.9 and Diabetes E11.9 [facility] [address] [facility] [id number] [address] [place] [id number] Aug, Diabetes E11.9 ; Schizoaffec tive disorder, bipolar type F25.0 ; Pharyngitis due to other organism J02.8 ; Panlobular emphysema J43.1 and Irritable bowel syndrome with both constipation and diarrhea K58.2 [place] [address] [id number] [address] [place] [id number] Aug, Abnormal mammogram R92.8 [facility] [address] [id number] [address] [place] [id number] Aug, [facility] [address] [id number] [address] [place] [id number] Aug, Bipolar 1 disorder, depresse d, moderate F31.32 ; Panic disorder with agoraphobia F40.01 and Chronic post-traumatic stress disorder (PTSD) F43.12 [place] [address] [id number] [address] [place] [phone] Aug, [place] [address] [id number] [address] [place] [id number] Aug, [place] [address] [id number] [address] [place] [phone] Aug, [place] [address] [id number] [address] [place] [phone] Jul, [place] [address] [facility] [id number] [address] [place] [id number] Jul, Mild persistent asthma witho ut complication J45.30 [place] [address] [id number] [address] [place] [id number] Jul, Mild persistent asthma witho ut complication J45.30 [place] [address] [id number] [address] [place] [id number] 15 Jul, 2017 Bipolar affective disorder, remission status unspecified F31.9 ; Diabetes E11.9 and Irritable bowel syndrome with constipation K58.1 [place] [address] [id number] [address] [place] [id number] Jul, [place] [address] [facility] [id number] [address] [place] [phone] Jul, [facility] [address] [facility] [id number] [address] [place] [id number] Jul, Frequent headaches R51 [facility] [address] [facility] [id number] [address] [place] [phone] Jul, [facility] [address] [facility] [id number] [address] [place] [id number] Jul, [facility] [address] [facility] [id number] [address] [place] [phone] Jul, [facility] [address] [facility] [id number] [address] [place] [id number] Jul, Frequent headaches R51 ; Fib rocystic disease of left breast N60.12 ; Fibrocystic disease of right breast N60.11 and Diabetes E11.9 [place] [address] [facility] [id number] [address] [place] [phone] Jul, [place] [address] [facility] [id number] [address] [place] [id number] Jul, [place] [address] [id number] Jun, Exudative tonsillitis J03.90 [place] [address] [place] [id number] [address] [place] [id number] Jun, [place] [address] [place] [id number] [place] [phone] 19 Jun, 2017 [place] [address] [facility] [id number] [address] [place] [id number] 15 Jun, 2017 Mild persistent asthma witho ut complication J45.30 ; Chronic obstructive pulmonary disease, unspecified COPD type J44.9 and Exudative tonsillitis J03.90 [place] [address] [facility] [id number] [address] [place] [id number] 13 Jun, 2017 Encounter for immunization Z 23 [place] [address] [place] [id number] [place] [phone] Jun, [facility] [address] [facility] [id number] [address] [place] [phone] Jun, [facility] [address] [facility] [id number] [address] [place] [phone] Jun, [facility] [address] [facility] [id number] [address] [place] [id number] 06 Jun, 2017 Tonsillitis J03.90 [facility] [address] [facility] [id number] [address] [place] [phone] Jun, [facility] [address] [facility] [id number] [address] [place] [phone] Jun, Acute non-recurrent maxillar y sinusitis J01.00 [facility] [address] [facility] [id number] [address] [place] [id number] Jun, [facility] [address] [facility] [id number] [address] [place] [id number] May, [facility] [address] [facility] [id number] [address] [place] [phone] May, [facility] [address] [facility] [id number] [address] [place] [id number] May, GERD (gastroesophageal reflu x disease) K21.9 [facility] [address] [facility] [id number] [address] [place] [phone] May, Migraine without aura and wi thout status migrainosus, not intractable G43.009 [facility] [address] [facility] [id number] [address] [place] [phone] May, [facility] [address] [facility] [id number] [address] [place] [phone] May, [facility] [address] [facility] [id number] [address] [place] [phone] May, Panlobular emphysema J43.1 a nd Acute non-recurrent maxillary sinusitis J01.00 [facility] [address] [facility] [id number] [address] [place] [id number] May, Bipolar 1 disorder, depresse d, moderate F31.32 ; Panic disorder with agoraphobia F40.01 and Akathisia G25.71 [facility] [address] [facility] [id number] [address] [place] [phone] Apr, [facility] [address] [facility] [id number] [address] [place] [phone] Apr, [place] [address] [facility] [id number] [address] [place] [phone] Apr, Acute non-recurrent maxillar y sinusitis J01.00 [place] [address] [facility] [id number] [address] [place] [id number] Apr, Panlobular emphysema J43.1 [place] [address] [facility] [id number] [address] [place] [phone] Apr, [facility] [address] [facility] [id number] [address] [place] [id number] 04 Apr, 2017 Sore throat J02.9 and Exudat minoo tonsillitis J03.90 [place] [address] [facility] [id number] [address] [place] [phone] 17 Mar, 2017 [facility] [address] [facility] [id number] [address] [place] [id number] 15 Mar, 2017 Acute non-recurrent maxillar y sinusitis J01.00 [facility] [address] [facility] [id number] [address] [place] [phone] Mar, [place] [address] [place] [id number] [address] [place] [id number] 09 Mar, 2017 Panlobular emphysema J43.1 a nd Diabetes E11.9 [facility] [address] [place] [id number] [address] [place] [phone] Mar, [facility] [address] [facility] [id number] [address] [place] [phone] Feb, Wheezing R06.2 and Acute rec urrent pansinusitis J01.41 [facility] [address] [facility] [id number] [address] [place] [id number] Feb, [facility] [address] [facility] [id number] [address] [place] [id number] Feb, Acute non-recurrent maxillar y sinusitis J01.00 [facility] [address] [facility] [id number] [address] [place] [id number] Feb, Chronic obstructive pulmonar y disease, unspecified J44.9 [facility] [address] [facility] [id number] [address] [place] [id number] Feb, Hypoxemia R09.02 and Chronic obstructive pulmonary disease, unspecified J44.9 [facility] [address] [facility] [id number] [address] [place] [id number] 28 Jan, 2017 Bipolar 1 disorder, depresse d, moderate F31.32 ; Panic disorder with agoraphobia F40.01 ; Chronic post-traumatic stress disorder (PTSD) F43.12 ; Diabetes E11.9 and Moderate persistent asthma without complication J45.40 [facility] [address] [facility] [id number] [address] [place] [phone] Jan, [facility] [address] [facility] [id number] [address] [place] [id number] 19 Jan, 2017 Acute non-recurrent maxillar y sinusitis J01.00 [facility] [address] [facility] [id number] [address] [place] [id number] 18 Jan, 2017 [facility] [address] [facility] [id number] [address] [place] [phone] Jan, [facility] [address] [facility] [id number] [address] [place] [id number] Jan, Moderate persistent asthma w [place] complication J45.40 and Hypoxemia R09.02 [facility] [address] [id number] [address] [place] [id number] Jan, Moderate persistent asthma w [place] complication J45.40 and Hypoxemia R09.02 [facility] [address] [id number] [address] [place] [id number] Jan, [facility] [address] [id number] [address] [place] [id number] Dec, Acute non-recurrent maxillar y sinusitis J01.00 [facility] [address] [id number] [address] [place] [phone] Dec, Chronic obstructive pulmonar y disease, unspecified J44.9 [facility] [address] [id number] [address] [place] [id number] Dec, [facility] [address] [id number] [address] [place] [id number] Dec, Mild persistent asthma witho wi complication J45.30 and Other chronic pain G89.29 [facility] [address] [id number] [address] [place] [id number] Nov, [facility] [address] [id number] [address] [place] [phone] Nov, Acute non-recurrent maxillar y sinusitis J01.00 [facility] [address] [id number] [address] [place] [phone] Nov, [facility] [address] [id number] [address] [place] [phone] Nov, [facility] [address] [id number] [address] [place] [phone] Oct, [facility] [address] [facility] [id number] [address] [place] [phone] Oct, Bipolar 1 disorder, depresse d, partial remission F31.75 ; Panic disorder with agoraphobia F40.01 and Chronic post-traumatic stress disorder (PTSD) F43.12 [facility] [address] [id number] [address] [place] [id number] Oct, Acute non-recurrent maxillar y sinusitis J01.00 [facility] [address] [id number] [address] [place] [id number] Oct, [facility] [address] [facility] [id number] [address] [place] [phone] Oct, Diabetes E11.9 [facility] [address] [id number] [address] [place] [id number] September, Diabetes E11.9 [facility] [address] [facility] [id number] [address] [place] [phone] September, Diabetes E11.9 and Sinus tac hycardia R00.0 [facility] [address] [facility] [id number] [address] [place] [phone] September, [facility] [address] [facility] [id number] [address] [place] [id number] September, [facility] [address] [facility] [id number] [address] [place] [phone] Aug, Diabetes E11.9 and Lumbago w ith sciatica, right side M54.41 [facility] [address] [facility] [id number] [address] [place] [phone] Aug, [facility] [address] [facility] [id number] [address] [place] [phone] Jul, Bipolar 1 disorder, depresse d, moderate F31.32 ; Panic disorder with agoraphobia F40.01 and Chronic post-traumatic stress disorder (PTSD) F43.12 [facility] [address] [facility] [id number] [address] [place] [id number] Jul, Sore throat J02.9 [facility] [address] [facility] [id number] [address] [place] [phone] Jul, [facility] [address] [id number] [address] [place] [id number] 15 Jul, 2016 [facility] [address] [id number] [address] [place] [id number] Jul, [facility] [address] [id number] [address] [place] [id number] Jul, [facility] [address] [id number] [address] [place] [id number] Jul, Sore throat J02.9 and Pharyn gitis, unspecified etiology J02.9 [facility] [address] [id number] [address] [place] [phone] Jun, [facility] [address] [id number] [address] [place] [id number] Jun, Diabetes E11.9 [facility] [address] [id number] [address] [place] [phone] Jun, [facility] [address] [id number] [address] [place] [phone] Jun, [facility] [address] [id number] [address] [place] [phone] Jun, [facility] [address] [id number] [address] [place] [phone] Jun, [facility] [address] [id number] [address] [place] [phone] Jun, [facility] [address] [id number] [address] [place] [phone] 15 Jun, 2016 [facility] [address] [id number] [address] [place] [phone] Jun, [facility] [address] [id number] [address] [place] [phone] Jun, [facility] [address] [id number] [address] [place] [phone] May, Diabetes E11.9 ; Bipolar I d isorder with depression F31.9 ; Other chronic pain G89.29 ; Acute recurrent maxillary sinusitis J01.01 and Anxiety disorder, unspecified F41.9 [place] [address] [id number] [address] [place] [phone] May, [place] [address] [id number] [address] [place] [phone] May, Diabetes E11.9 ; Bipolar I d isorder with depression F31.9 ; Anxiety disorder, unspecified F41.9 ; Other chronic pain G89.29 and Acute recurrent maxillary sinusitis J01.01 [place] [address] [facility] [id number] [address] [place] [phone] May, [place] [address] [facility] [id number] [address] [place] [phone] May, Attention deficit hyperactiv ity disorder (ADHD), predominantly inattentive type F90.0 [place] [address] [facility] [id number] [address] [place] [phone] May, [place] [address] [facility] [id number] [place] [phone] Apr, Attention deficit hyperactiv ity disorder (ADHD), predominantly inattentive type F90.0 and Non-seasonal allergic rhinitis due to other allergic trigger J30.89 [place] [address] [place] [id number] [address] [place] [phone] Apr, Bipolar 1 disorder, depresse d, moderate F31.32 ; Panic disorder with agoraphobia F40.01 and Chronic post-traumatic stress disorder (PTSD) F43.12 [place] [address] [place] [id number] [address] [place] [phone] Apr, Dental examination Z01.20 [place] [address] [facility] [id number] [address] [place] [phone] Mar, [place] [address] [place] [id number] [place] [phone] Mar, [facility] [address] [id number] [address] [place] [phone] Mar, Bipolar I disorder with depr ession F31.9 and Anxiety disorder, unspecified F41.9 [facility] [address] [id number] [address] [place] [id number] 08 Mar, 2016 Panic disorder with agorapho syd F40.01 ; Bipolar 1 disorder, depressed, moderate F31.32 and Chronic post-traumatic stress disorder (PTSD) F43.12 [facility] [address] [id number] [address] [place] [phone] Mar, [facility] [address] [id number] [address] [place] [phone] Mar, Dental caries K02.9 [facility] [address] [id number] [address] [place] [phone] 24 Feb, 2016 Lumbago with sciatica, left side M54.42 ; Lumbago with sciatica, right side M54.41 and Other chronic pain G89.29 [facility] [address] [id number] [address] [place] [phone] Feb, [facility] [address] [id number] [address] [place] [phone] 14 Feb, 2016 [facility] [address] [id number] [address] [place] [phone] 13 Feb, 2016 Bipolar I disorder with depr ession F31.9 ; PTSD (post-traumatic stress disorder) F43.10 and Mood disorder F39 [facility] [address] [id number] [address] [place] [phone] Feb, [facility] [address] [id number] [address] [place] [phone] 11 Feb, 2016 Dental examination Z01.20 [facility] [address] [id number] [address] [place] [phone] 07 Feb, 2016 [facility] [address] [facility] [id number] [address] [place] [phone] Feb, Acute bronchitis, unspecifie d organism J20.9 [facility] [address] [place] [id number] [address] [place] [phone] Jan, Mood disorder F39 ; Migraine without aura and without status migrainosus, not intractable G43.009 ; Irritable bowel syndrome, unspecified type K58.9 ; Diabetes E11.9 and Encounter for immunization Z23 [facility] [address] [id number] Jan, [facility] [address] [address] Jan, [place] [address] [phone] Jan, [facility] [address] [address] Jan, [facility] [address] [id number] Jan, [facility] [address] [address] Dec, Bipolar I disorder with depr ession F31.9 ; PTSD (post-traumatic stress disorder) F43.10 and Panic disorder with agoraphobia F40.01 [facility] [address] [place] [id number] [address] [place] [phone] Dec, Chronic obstructive pulmonar y disease, unspecified COPD type J44.9 ; Tremor R25.1 and Anxiety F41.9 [facility] [address] [id number] Dec, [place] [address] [address] Nov, Tremors of nervous system R2 5.1 and Cramping of feet R25.2 [place] [address] [place] [id number] [address] [place] [phone] Nov, [facility] [address] [id number] [address] [place] [phone] Nov, [facility] [address] [facility] [id number] [address] [place] [phone] Oct, Chronic obstructive pulmonar y disease, unspecified J44.9 [facility] [address] [facility] [id number] [address] [place] [phone] Oct, [facility] [address] [facility] [id number] [address] [place] [phone] Oct, Tremor R25.1 [place] [address] [facility] [id number] [address] [place] [phone] Oct, Bipolar I disorder with depr ession F31.9 ; Diabetes E11.9 ; PTSD (post-traumatic stress disorder) F43.10 and Panic disorder with agoraphobia F40.01 [place] [address] [facility] [id number] [address] [place] [phone] Oct, Mood disorder F39 [place] [address] [facility] [id number] [address] [place] [phone] September, [place] [address] [facility] [id number] [address] [place] [phone] September, Diabetes E11.9 ; Bipolar I d isorder with depression F31.9 ; PTSD (post-traumatic stress disorder) F43.10 and Panic disorder with agoraphobia F40.01 [facility] [address] [facility] [id number] [address] [place] [phone] September, Mood disorder F39 ; Schizoaf fective disorder, unspecified type F25.9 ; Arthritis M19.90 ; Tremor R25.1 ; Acute non-recurrent frontal sinusitis J01.10 and Blood in stool K92.1 [place] [address] [facility] [id number] [address] [place] [phone] September, [facility] [address] [id number] [address] [place] [phone] September, Chronic obstructive pulmonar y disease, unspecified J44.9 [facility] [address] [id number] [address] [place] [phone] September, Diabetes E11.9 [facility] [address] [id number] [address] [place] [phone] Aug, Other bipolar disorder F31.8 9 and Anxiety disorder, unspecified F41.9 [facility] [address] [id number] [address] [place] [phone] Aug, [facility] [address] [id number] [address] [place] [phone] Aug, Diabetes E11.9 [facility] [address] [facility] [id number] [address] [place] [phone] Aug, [facility] [address] [facility] [id number] [address] [place] [id number] 14 Aug, 2015 Diabetes E11.9 ; Fatigue R53 .83 and Dizziness R42 [facility] [address] [id number] [address] [place] [phone] Aug, Other bipolar disorder F31.8 9 [facility] [address] [facility] [id number] [address] [place] [phone] Aug, Generalized anxiety disorder F41.1 [facility] [address] [id number] [address] [place] [phone] Aug, Other bipolar disorder F31.8 9 and Anxiety disorder, unspecified F41.9 [facility] [address] [id number] [address] [place] [phone] Aug, [facility] [address] [facility] [id number] [address] [place] [phone] Jul, [facility] [address] [facility] [id number] [address] [place] [phone] Jul, [facility] [address] [facility] [id number] [address] [place] [phone] Jul, Bronchitis J40 [facility] [address] [facility] [id number] [address] [place] [phone] Jul, Anxiety disorder F41.9 [facility] [address] [facility] [id number] [address] [place] [id number] Jul, Other bipolar disorder F31.8 9 and Anxiety disorder, unspecified F41.9 [facility] [address] [facility] [id number] [address] [place] [id number] Jul, Other bipolar disorder F31.8 9 and Fibromyalgia M79.7 [facility] [address] [facility] [id number] [address] [place] [phone] Jul, [facility] [address] [place] [id number] [address] [place] [phone] Jul, [facility] [address] [place] [id number] [address] [place] [phone] Jul, [facility] [address] [place] [id number] [place] [address] Jul, Other bipolar disorder F31.8 9 and Anxiety disorder, unspecified F41.9 [facility] [address] [place] [id number] [address] [place] [phone] Jun, GERD (gastroesophageal reflu x disease) K21.9 [facility] [address] [place] [id number] [address] [place] [phone] Jun, [facility] [address] [facility] [id number] [address] [place] [phone] May, [facility] [address] [place] [id number] [address] [place] [address] May, Diabetes E11.9 ; Back pain M 54.9 ; GERD (gastroesophageal reflux disease) K21.9 ; Hypertension I10 and Peripheral neuropathy G62.9 [facility] [address] [id number] [address] [place] [phone] Mar, [facility] [address] [id number] [address] [place] [address] Mar, [facility] [address] [id number] [address] [place] [phone] Mar, Acute sinusitis J01.90 and O titis media, left H66.92 [facility] [address] [id number] [address] [place] [phone] Feb, [facility] [address] [id number] [address] [place] [phone] Feb, [facility] [address] [id number] [address] [place] [phone] Feb, [facility] [address] [id number] [address] [place] [phone] Feb, [facility] [address] [id number] [address] [place] [phone] Jan, [facility] [address] [id number] [address] [place] [phone] Jan, Diabetes 250.00 and Back higinio n 724.5 [facility] [address] [facility] [id number] [address] [place] [phone] Jan, [facility] [address] [id number] [address] [place] [phone] Dec, Diabetes 250.00 ; Benign ess ential hypertension 401.1 and Allergic rhinitis 477.9 [facility] [address] [id number] [address] [place] [phone] Dec, [facility] [address] [facility] [id number] [address] [place] [phone] Dec, [facility] [address] [id number] [address] [place] [phone] Dec, Psychosis 298.9 [facility] [address] [id number] [address] [place] [address] Dec, Medication side effect 995.2 0 and Generalized anxiety disorder 300.02 [facility] [address] [facility] [id number] [address] [place] [phone] Dec, Acquired cognitive dysfuncti on 294.9 [facility] [address] [facility] [id number] [address] [place] [phone] Dec, [facility] [address] [facility] [id number] [address] [place] [phone] Dec, Unspecified myalgia and myos itis 729.1 and Generalized anxiety disorder 300.02 [facility] [address] [facility] [id number] [address] [place] [phone] Nov, [facility] [address] [facility] [id number] [address] [place] [phone] Nov, [facility] [address] [facility] [id number] [address] [place] [phone] Nov, [facility] [address] [facility] [id number] [address] [place] [phone] Nov, Upper respiratory infection 465.9 and Chronic airway obstruction, not elsewhere classified 496 [facility] [address] [facility] [id number] [address] [place] [id number] Nov, Hyponatremia 276.1 [facility] [address] [facility] [id number] [address] [place] [phone] Oct, [facility] [address] [facility] [id number] [address] [place] [id number] Oct, [facility] [address] [facility] [id number] [address] [place] [phone] Oct, [facility] [address] [facility] [id number] [address] [place] [id number] Oct, [facility] [address] [facility] [id number] [address] [place] [phone] Oct, Hyponatremia 276.1 [facility] [address] [id number] [address] [place] [phone] Oct, [facility] [address] [id number] [address] [place] [phone] Oct, [facility] [address] [id number] [address] [place] [phone] Oct, Generalized anxiety disorder 300.02 [facility] [address] [id number] [address] [place] [phone] Oct, Generalized anxiety disorder 300.02 and Diabetes 250.00 [facility] [address] [id number] [address] [place] [phone] Aug, [facility] [address] [facility] [id number] [address] [place] [phone] Aug, [facility] [address] [id number] [address] [place] [phone] Jul, [facility] [address] [id number] [address] [place] [phone] Jul, [facility] [address] [id number] [address] [place] [phone] Jun, [facility] [address] [id number] [address] [place] [id number] Jun, [facility] [address] [id number] [address] [place] [phone] Jun, [facility] [address] [id number] [address] [place] [id number] Jun, [facility] [address] [id number] [address] [place] [phone] Jun, [facility] [address] [id number] [address] [place] [phone] May, [facility] [address] [id number] [address] [place] [address], [place] [address] May, [facility] [address] [id number] [address] [place] [address], [place] [address] Apr, [facility] [address] [id number] [address] [place] [address], [place] [address] Apr, [facility] [address] [id number] [address] [place] [address], [place] [address] Apr, [facility] [address] [id number] [address] [place] [address], [place] [address] Apr, [facility] [address] [id number] [address] [place] [address], [place] [address] Apr, [facility] [address] [id number] [address] [place] [address], [place] [address] Apr, [facility] [address] [id number] [address] [place] [address], [place] [address] Apr, [facility] [address] [id number] [address] [place] [address], [place] [address] Apr, [facility] [address] [id number] [address] [place] [address], [place] [address] Feb, [facility] [address] [id number] [address] [place] [address], [place] [address] Feb, [facility] [address] [id number] [address] [place] [address], [place] [address] Jan, [facility] [address] [id number] [address] [place] [address], [place] [address] Jan, [facility] [address] [id number] [address] [place] [address], [place] [address] Dec, [facility] [address] [id number] [address] [place] [address], [place] [address] Dec, [facility] [address] [id number] [address] [place] [address], [place] [address] Dec, [facility] [address] [id number] [address] [place] [address], [place] [address] Nov, [facility] [address] [id number] [address] [place] [address], [place] [address] Nov, [facility] [address] [id number] [address] [place] [address], [place] [address] Nov, [facility] [address] [id number] [address] [place] [address], [place] [address] Oct, [facility] [address] [id number] [address] [place] [address], [place] [address] Oct, [facility] [address] [id number] [address] [place] [address], [place] [address] Oct, [facility] [address] [id number] [address] [place] [address], [place] [address] September, [facility] [address] [id number] [address] [place] [address], [place] [address] September, [facility] [address] [id number] [address] [place] [address], [place] [address] September, [facility] [address] [id number] [address] [place] [address], [place] [address] Aug, [facility] [address] [id number] [address] [place] [address], [place] [address] Aug, [facility] [address] [id number] [address] [place] [address], [place] [address] Aug, [facility] [address] [id number] [address] [place] [address], [place] [address] 16 Aug, 2011 [facility] [address] [id number] [address] [place] [address], [place] [address] Jul, [facility] [address] [id number] [address] [place] [address], [place] [address] Jun, [facility] [address] [id number] [address] [address] 14 Jun, 2011 [facility] [address] [id number] [address] [place] [address], [place] [address] 13 Jun, 2011 [facility] [address] [id number] [address] [place] [phone] 07 Jun, 2011 [facility] [address] [id number] [address] [place] [address], [place] [phone] 03 Jun, 2011 [facility] [address] [id number] [address] [place] [phone] 13 May, 2011 [facility] [address] [id number] [address] [place] [address], [place] [phone] May, [facility] [address] [id number] [address] [place] [address], [place] [phone] May, [facility] [address] [id number] [address] [place] [phone] May, [facility] [address] [id number] [address] [place] [address], [place] [phone] Apr, [facility] [address] [id number] [address] [place] [phone] Apr, [facility] [address] [id number] [address] [place] [phone] Apr, [facility] [address] [id number] [address] [place] [id number] Mar, [facility] [address] [id number] [address] [place] [id number] Mar, [facility] [address] [id number] [address] [place] [phone] 09 Mar, 2011 [facility] [address] [id number] [address] [place] [phone] 13 Feb, 2011 [facility] [address] [id number] [address] [place] [phone] 13 Feb, 2011 [facility] [place] [address] [id number] [address] [place] [phone] 13 Feb, 2011 [facility] [address] [id number] [address] [place] [phone] 11 Nov, 2010 [facility] [address] [id number] [address] [place] [phone] 16 Sep, 2010 [facility] [address] [id number] [address] [place] [phone] Aug, [facility] [address] [id number] [address] [place] [phone] Jul, [facility] [address] [id number] [address] [place] [phone] May, [facility] [address] [id number] [address] [place] [phone] Apr, [facility] [address] [id number] [address] [place] [id number] Apr, [facility] [address] [id number] [address] [place] [id number] Apr, [facility] [address] [id number] [address] [place] [id number] Apr, [facility] [address] [id number] [address] [place] [id number] Apr, IMMUNIZATIONS No Known Immunizations SOCIAL HISTORY Never Assessed REASON FOR VISIT lab PLAN OF CARE VITAL SIGNS MEDICATIONS Unknown [...]
--- OUTSIDE RECORDS SUMMARY | 2019-07-17 10:59 | XMS REPORT ---
Author Author Sujey WILLS Organization [facility], [place] Address [address] [place] [address] Care Team Providers Care Electrical Technician Instructor Name Role Phone JOHANN YVON Unavailable PROBLEMS Type Condition ICD9-CM Code [id number] Code Onset Dates Condition S tatus SNOMED Code Problem GERD (gastroesophageal reflux disease) K21.9 Active 506511497 Problem Back pain M54.9 Active 938554041 Problem Hypertension I10 Active 1153683 3 Problem Diabetes E11.9 Active 98891490 Problem Anxiety disorder, unspecified F41.9 Active 893576774 Problem Other bipolar disorder F31.89 Active 04038603 Problem Fibromyalgia M79.7 Active 6445405 7 Problem Panic disorder with agoraphobia F40.01 Active 45145578 Problem Chronic obstructive pulmonary disease, unspecified J44.9 Active 77655026 Problem Akathisia G25.71 Active 134411741 Problem Lumbago with sciatica, left side M54.42 Active 468754417 Problem Migraine without aura and without status migrain osus, not intractable G43.009 Active 339974630 Problem Lumbago with sciatica, right side M54.41 Active 265540422 Problem Fibrocystic disease of right breast N60.11 Active 36536331 Problem Arthritis M19.90 Active 6219993 Problem Fibrocystic disease of left breast N60.12 Active 16452724 Problem Daytime somnolence R40.0 Active 1 58776645711 Problem Slow transit constipation K59.01 Acti ve 69369791 Problem Chronic post-traumatic stress disorder (PTSD) F43. 12 Active 827375203 Problem Bipolar 1 disorder, depressed, moderate F31.32 Active 59050487 Problem Other chronic pain G89.29 Active 8 7565372 Problem Irritable bowel syndrome with both constipation and diarrh ea K58.2 Active 66007377 Problem Irritable bowel syndrome with constipation K58.1 Active 027422758 Problem Essential tremor G25.0 Active 609 269344 Problem Schizoaffective disorder, bipolar type F25.0 Active 59511816 Problem Bipolar I disorder with depression F31.9 Active 29294235 Problem Acute non-recurrent maxillary sinusitis J01.00 Active 10212265 Problem Bipolar affective disorder, remission status unspecified F31.9 Active 02167609 Problem Attention deficit hyperactiv ity disorder (ADHD), predominantly inattentive type F90.0 Active 49510776 Problem Moderate persistent asthma without complication J4 5.40 Active 238427396 Problem Panlobular emphysema J43.1 Active 8812325 Problem Bipolar 1 disorder, depressed, partial remission F 31.75 Active 50813566 Problem Mild persistent asthma without complication J45.30 Active 101826729 ALLERGIES No Information ENCOUNTERS Encounter Location Date Diagnosis [place] [address] [address] Mar, [place] [address] [address] Jan, [place] [address] [address] Dec, Daytime somnolence R40.0 and Right otitis media with effusion H65.91 [place] [address] [address] Dec, [place] [address] [place] [id number] [address] [place] [id number] Dec, Cerebrovascular accident (CV A) due to occlusion of right cerebellar artery I63.541 [place] [address] [place] [id number] [address] [place] [phone] Dec, [place] [address] [place] [id number] [address] [place] [id number] Dec, [place] [address] [place] [id number] [address] [place] [phone] Nov, Bipolar 1 disorder, depresse d, partial remission F31.75 and Panic disorder with agoraphobia F40.01 [place] [address] [place] [id number] [place] [phone] Nov, Panlobular emphysema J43.1 [facility] [place] [address] [id number] [address] [place] [phone] Nov, Cerebrovascular accident (CV A) due to occlusion of right cerebellar artery I63.541 and Acute non-recurrent maxillary sinusitis J01.00 [facility] [place] [address] [id number] [address] [place] [id number] Nov, Panlobular emphysema J43.1 [facility] [place] [address] [id number] [address] [place] [phone] Nov, [facility] [place] [address] [id number] [address] [place] [phone] Nov, [facility] [place] [address] [id number] [address] [place] [phone] Nov, [facility] [place] [address] [id number] [address] [place] [phone] Nov, [facility] [place] [address] [id number] [address] [place] [phone] Nov, [facility] [place] [address] [id number] [address] [place] [phone] Nov, [facility] [place] [address] [id number] [address] [place] [phone] Nov, [facility] [place] [address] [id number] [address] [place] [phone] Nov, Mild persistent asthma witho ut complication J45.30 and Irritable bowel syndrome with both constipation and diarrhea K58.2 [facility] [place] [address] [id number] [address] [place] [phone] Nov, [facility] [place] [address] [id number] [address] [place] [phone] Oct, [facility] [place] [address] [id number] [address] [place] [id number] Oct, [facility] [place] [address] [id number] [address] [place] [phone] Oct, Type 2 diabetes mellitus wit h diabetic neuropathy, 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 ; Diabetes E11.9 ; Slow transit constipation K59.01 ; Edema of both legs R60.0 and Dysfunction of right eustachian tube H69.81 [facility] [place] [address] [id number] [address] [place] [phone] Oct, Frequent headaches R51 [facility] [place] [address] [id number] [address] [place] [phone] Oct, [facility] [place] [address] [id number] [address] [place] [phone] Oct, [facility] [place] [address] [id number] [address] [place] [phone] Oct, [facility] [place] [address] [id number] [address] [place] [phone] Oct, [facility] [place] [address] [id number] [address] [place] [phone] Oct, [facility] [place] [address] [facility] [id number] [address] [place] [phone] Oct, [facility] [place] [address] [facility] [id number] [address] [place] [phone] Oct, [facility] [place] [address] [facility] [id number] [address] [place] [phone] Oct, [facility] [place] [address] [facility] [id number] [address] [place] [phone] September, Frequent headaches R51 [facility] [place] [address] [facility] [id number] [address] [place] [id number] September, Bilateral otitis media with effusion H65.93 ; Dizziness R42 and Essential tremor G25.0 [facility] [place] [address] [id number] [address] [place] [phone] September, Chronic obstructive pulmonar y disease, unspecified COPD type J44.9 [facility] [place] [address] [id number] [address] [place] [phone] September, Chronic obstructive pulmonar y disease, unspecified COPD type J44.9 [facility] [place] [address] [id number] [address] [place] [id number] September, Migraine without aura and wi thout status migrainosus, not intractable G43.009 [facility] [place] [address] [id number] [address] [place] [phone] September, [facility] [place] [address] [facility] [id number] [address] [place] [phone] September, [facility] [place] [address] [facility] [id number] [address] [place] [phone] September, [facility] [place] [address] [facility] [id number] [address] [place] [phone] September, Frequent headaches R51 [facility] [place] [address] [id number] [address] [place] [phone] Aug, [facility] [place] [address] [facility] [id number] [address] [place] [id number] Aug, Breast mass, right N63.10 [facility] [place] [address] [facility] [id number] [address] [place] [id number] Aug, Breast lump N63.0 [facility] [place] [address] [facility] [id number] [address] [place] [phone] Aug, [facility] [place] [address] [facility] [id number] [address] [place] [id number] Aug, Bipolar affective disorder, remission status unspecified F31.9 and Diabetes E11.9 [facility] [place] [address] [facility] [id number] [address] [place] [phone] Aug, Diabetes E11.9 ; Schizoaffec tive disorder, bipolar type F25.0 ; Pharyngitis due to other organism J02.8 ; Panlobular emphysema J43.1 and Irritable bowel syndrome with both constipation and diarrhea K58.2 [place] [id number] [id number] [address] [place] [phone] Aug, Abnormal mammogram R92.8 [place] [address] [id number] [address] [place] [phone] Aug, [facility] [place] [address] [id number] [address] [place] [id number] Aug, Bipolar 1 disorder, depresse d, moderate F31.32 ; Panic disorder with agoraphobia F40.01 and Chronic post-traumatic stress disorder (PTSD) F43.12 [place] [address] [id number] [address] [place] [phone] Aug, [place] [address] [id number] [address] [place] [phone] Aug, [place] [address] [id number] [address] [place] [phone] Aug, [place] [address] [id number] [address] [place] [phone] Jul, [place] [address] [id number] [address] [place] [id number] Jul, Mild persistent asthma witho ut complication J45.30 [place] [address] [id number] [address] [place] [id number] Jul, Mild persistent asthma witho ut complication J45.30 [place] [address] [id number] [address] [place] [id number] 15 Jul, 2017 Bipolar affective disorder, remission status unspecified F31.9 ; Diabetes E11.9 and Irritable bowel syndrome with constipation K58.1 [place] [address] [id number] [address] [place] [phone] Jul, [place] [address] [id number] [address] [place] [id number] Jul, [facility] [place] [address] [id number] [address] [place] [id number] Jul, Frequent headaches R51 [facility] [place] [address] [facility] [id number] [address] [place] [phone] Jul, [facility] [place] [address] [facility] [id number] [address] [place] [phone] Jul, [facility] [place] [address] [facility] [id number] [address] [place] [phone] Jul, [facility] [place] [address] [facility] [id number] [address] [place] [id number] Jul, Frequent headaches R51 ; Fib rocystic disease of left breast N60.12 ; Fibrocystic disease of right breast N60.11 and Diabetes E11.9 [place] [address] [place] [id number] [address] [place] [phone] Jul, [facility] [place] [address] [facility] [id number] [address] [place] [id number] Jul, [place] [address] [id number] 21 Jun, 2017 Exudative tonsillitis J03.90 [place] [address] [place] [id number] [address] [place] [phone] Jun, [place] [address] [place] [id number] [address] [place] [id number] 19 Jun, 2017 [place] [address] [place] [id number] [place] [id number] 15 Jun, 2017 Mild persistent asthma witho ut complication J45.30 ; Chronic obstructive pulmonary disease, unspecified COPD type J44.9 and Exudative tonsillitis J03.90 [place] [address] [place] [id number] [place] [phone] 13 Jun, 2017 Encounter for immunization Z 23 [place] [address] [place] [id number] [place] [id number] Jun, [facility] [place] [address] [facility] [id number] [address] [place] [phone] Jun, [facility] [place] [address] [facility] [id number] [address] [place] [id number] Jun, [facility] [address] [facility] [id number] [address] [place] [id number] Jun, Tonsillitis J03.90 [facility] [place] [address] [facility] [id number] [address] [place] [id number] Jun, [facility] [place] [address] [place] [id number] [place] [phone] Jun, Acute non-recurrent maxillar y sinusitis J01.00 [facility], [place] [address] [id number] Jun, [facility] [place] [address] [place] [id number] [place] [phone] May, [facility] [place] [address] [id number] May, [facility] [place] [address] [place] [id number] [place] [phone] May, GERD (gastroesophageal reflu x disease) K21.9 [facility] [place] [address] [place] [id number] [address] [place] [id number] May, Migraine without aura and wi thout status migrainosus, not intractable G43.009 [facility] [place] [address] [facility] [id number] [address] [place] [phone] May, [facility] [place] [address] [place] [id number] [address] [place] [phone] May, [facility] [place] [address] [place] [id number] [address] [place] [id number] May, Panlobular emphysema J43.1 a nd Acute non-recurrent maxillary sinusitis J01.00 [facility] [place] [address] [id number] [address] [place] [id number] May, Bipolar 1 disorder, depresse d, moderate F31.32 ; Panic disorder with agoraphobia F40.01 and Akathisia G25.71 [facility] [place] [address] [id number] [address] [place] [phone] Apr, [facility] [place] [address] [id number] [address] [place] [phone] Apr, [facility] [place] [address] [facility] [id number] [address] [place] [id number] Apr, Acute non-recurrent maxillar y sinusitis J01.00 [facility] [place] [address] [facility] [id number] [address] [place] [phone] Apr, Panlobular emphysema J43.1 [facility] [place] [address] [facility] [id number] [address] [place] [id number] Apr, [facility] [address] [facility] [id number] [address] [place] [id number] Apr, Exudative tonsillitis J03.90 and Sore throat J02.9 [facility] [place] [address] [facility] [id number] [address] [place] [id number] 17 Mar, 2017 [facility] [place] [address] [id number] [address] [place] [id number] 15 Mar, 2017 Acute non-recurrent maxillar y sinusitis J01.00 [facility] [place] [address] [id number] [address] [place] [phone] Mar, [facility] [place] [address] [facility] [id number] [address] [place] [id number] Mar, Panlobular emphysema J43.1 a nd Diabetes E11.9 [facility] [place] [address] [facility] [id number] [address] [place] [id number] Mar, [facility] [address] [facility] [id number] [address] [place] [id number] Feb, Wheezing R06.2 and Acute rec urrent pansinusitis J01.41 [facility] [place] [address] [facility] [id number] [address] [place] [phone] Feb, [facility] [place] [address] [facility] [id number] [place] [id number] Feb, Acute non-recurrent maxillar y sinusitis J01.00 [facility] [place] [address] [facility] [id number] [address] [place] [id number] Feb, Chronic obstructive pulmonar y disease, unspecified J44.9 [facility] [place] [address] [facility] [id number] [address] [place] [id number] Feb, Hypoxemia R09.02 and Chronic obstructive pulmonary disease, unspecified J44.9 [facility] [place] [address] [place] [id number] [address] [place] [id number] 28 Jan, 2017 Bipolar 1 disorder, depresse d, moderate F31.32 ; Panic disorder with agoraphobia F40.01 ; Chronic post-traumatic stress disorder (PTSD) F43.12 ; Diabetes E11.9 and Moderate persistent asthma without complication J45.40 [facility] [place] [address] [facility] [id number] [address] [place] [phone] Jan, [facility] [place] [address] [facility] [id number] [address] [place] [id number] 19 Jan, 2017 Acute non-recurrent maxillar y sinusitis J01.00 [facility] [place] [address] [facility] [id number] [address] [place] [id number] 18 Jan, 2017 [facility] [place] [address] [facility] [id number] [address] [place] [id number] 18 Jan, 2017 [facility] [place] [address] [place] [id number] [address] [place] [id number] Jan, Moderate persistent asthma w [facility] complication J45.40 and Hypoxemia R09.02 [facility] [place] [address] [id number] [address] [place] [id number] Jan, Moderate persistent asthma w [facility] complication J45.40 and Hypoxemia R09.02 [facility] [place] [address] [id number] [address] [place] [id number] Jan, [facility] [place] [address] [id number] [address] [place] [id number] Dec, Acute non-recurrent maxillar y sinusitis J01.00 [facility] [place] [address] [id number] [address] [place] [id number] Dec, Chronic obstructive pulmonar y disease, unspecified J44.9 [facility] [place] [address] [id number] [address] [place] [id number] Dec, [facility] [place] [address] [id number] [address] [place] [id number] Dec, Mild persistent [facility] J45.30 and Other chronic pain G89.29 [facility] [place] [address] [id number] [address] [place] [phone] Nov, [facility] [place] [address] [id number] [address] [place] [id number] Nov, Acute non-recurrent maxillar y sinusitis J01.00 [facility] [place] [address] [id number] [address] [place] [phone] Nov, [facility] [place] [address] [id number] [address] [place] [id number] Nov, [facility] [place] [address] [id number] [address] [place] [phone] Oct, [facility] [place] [address] [facility] [id number] [address] [place] [phone] Oct, Bipolar 1 disorder, depresse d, partial remission F31.75 ; Panic disorder with agoraphobia F40.01 and Chronic post-traumatic stress disorder (PTSD) F43.12 [facility] [place] [address] [id number] [address] [place] [id number] 29 Oct, 2016 Acute non-recurrent maxillar y sinusitis J01.00 [facility] [place] [address] [facility] [id number] [address] [place] [id number] Oct, [facility] [place] [address] [facility] [id number] [address] [place] [id number] Oct, Diabetes E11.9 [facility], [place] [address] [facility] [id number] [address] [place] [id number] September, Diabetes E11.9 [facility], [place] [address] [facility] [id number] [address] [place] [id number] September, Diabetes E11.9 and Sinus tac hycardia R00.0 [facility], [place] [address] [facility] [id number] [address] [place] [id number] September, [facility], [place] [address] [facility] [id number] [address] [place] [id number] September, [facility], [place] [address] [facility] [id number] [address] [place] [id number] Aug, Diabetes E11.9 and Lumbago w ith sciatica, right side M54.41 [facility], [place] [address] [facility] [id number] [address] [place] [id number] Aug, [facility], [place] [address] [facility] [id number] [address] [place] [id number] Jul, Bipolar 1 disorder, depresse d, moderate F31.32 ; Panic disorder with agoraphobia F40.01 and Chronic post-traumatic stress disorder (PTSD) F43.12 [facility], [place] [address] [facility] [id number] [address] [place] [id number] Jul, Sore throat J02.9 [facility], [place] [address] [facility] [id number] [address] [place] [phone] Jul, [facility], [place] [address] [place] [id number] [address] [place] [id number] Jul, [facility], [place] [address] [id number] [address] [place] [phone] Jul, [facility], [place] [address] [id number] [address] [place] [address] [id number] Jul, [facility], [place] [address] [id number] [address] [place] [id number] Jul, Sore throat J02.9 and Pharyn gitis, unspecified etiology J02.9 [facility], [place] [address] [id number] [address] [place] [id number] Jun, [facility], [place] [address] [id number] [address] [place] [phone] Jun, Diabetes E11.9 [facility] [place] [address] [id number] [address] [place] [phone] Jun, [facility], [place] [address] [id number] [address] [place] [phone] Jun, [facility], [place] [address] [id number] [address] [place] [phone] Jun, [facility], [place] [address] [facility] [id number] [address] [place] [id number] Jun, [facility], [place] [address] [id number] [address] [place] [phone] Jun, [facility], [place] [address] [id number] [address] [place] [id number] 15 Jun, 2016 [facility] [place] [address] [id number] [address] [place] [phone] Jun, [facility], [place] [address] [facility] [id number] [address] [place] [phone] Jun, [facility], [place] [address] [facility] [id number] [address] [place] [id number] May, Diabetes E11.9 ; Other chron ic pain G89.29 ; Acute recurrent maxillary sinusitis J01.01 ; Bipolar I disorder with depression F31.9 and Anxiety disorder, unspecified F41.9 [place] [address] [id number] [address] [place] [phone] May, [place] [address] [facility] [id number] [address] [place] [id number] May, Diabetes E11.9 ; Bipolar I d isorder with depression F31.9 ; Anxiety disorder, unspecified F41.9 ; Other chronic pain G89.29 and Acute recurrent maxillary sinusitis J01.01 [place] [address] [facility] [id number] [address] [place] [phone] May, [place] [address] [facility] [id number] [address] [place] [phone] May, Attention deficit hyperactiv ity disorder (ADHD), predominantly inattentive type F90.0 [place] [address] [place] [id number] [address] [place] [phone] May, [place] [address] [place] [id number] [place] [phone] Apr, Attention deficit hyperactiv ity disorder (ADHD), predominantly inattentive type F90.0 and Non-seasonal allergic rhinitis due to other allergic trigger J30.89 [place] [address] [place] [id number] [address] [place] [id number] Apr, Bipolar 1 disorder, depresse d, moderate F31.32 ; Panic disorder with agoraphobia F40.01 and Chronic post-traumatic stress disorder (PTSD) F43.12 [place] [address] [place] [id number] [address] [place] [phone] Apr, Dental examination Z01.20 [place] [address] [facility] [id number] [address] [place] [phone] Mar, [place] [address] [place] [id number] [place] [phone] Mar, [facility], [place] [address] [id number] [address] [place] [id number] Mar, Bipolar I disorder with depr ession F31.9 and Anxiety disorder, unspecified F41.9 [facility], [place] [address] [id number] [address] [place] [phone] 08 Mar, 2016 Panic disorder with agorapho syd F40.01 ; Bipolar 1 disorder, depressed, moderate F31.32 and Chronic post-traumatic stress disorder (PTSD) F43.12 [facility], [place] [address] [id number] [address] [place] [phone] Mar, [facility], [place] [address] [id number] [address] [place] [phone] Mar, Dental caries K02.9 [facility], [place] [address] [id number] [address] [place] [id number] 24 Feb, 2016 Lumbago with sciatica, left side M54.42 ; Lumbago with sciatica, right side M54.41 and Other chronic pain G89.29 [facility], [place] [address] [id number] [address] [place] [phone] Feb, [facility], [place] [address] [id number] [address] [place] [id number] 14 Feb, 2016 [facility] [place] [address] [id number] [address] [place] [phone] 13 Feb, 2016 Bipolar I disorder with depr ession F31.9 ; PTSD (post-traumatic stress disorder) F43.10 and Mood disorder F39 [facility], [place] [address] [id number] [address] [place] [phone] Feb, [facility], [place] [address] [id number] [address] [place] [id number] 11 Feb, 2016 Dental examination Z01.20 [facility], [place] [address] [id number] [address] [place] [id number] 07 Feb, 2016 [facility] [address] [facility] [id number] [address] [place] [phone] Feb, Acute bronchitis, unspecifie d organism J20.9 [facility], [place] [address] [place] [id number] [address] [place] [id number] Jan, Mood disorder F39 ; Migraine without aura and without status migrainosus, not intractable G43.009 ; Irritable bowel syndrome, unspecified type K58.9 ; Diabetes E11.9 and Encounter for immunization Z23 [facility], [place] [address] [id number] Jan, [facility], [place] [address] [phone] Jan, [place] [address] [id number] Jan, [facility], [place] [address] [phone] Jan, [facility], [place] [address] [phone] Jan, [facility], [place] [address] [id number] Dec, Bipolar I disorder with depr ession F31.9 ; PTSD (post-traumatic stress disorder) F43.10 and Panic disorder with agoraphobia F40.01 [facility], [place] [address] [place] [id number] [address] [place] [id number] Dec, Chronic obstructive pulmonar y disease, unspecified COPD type J44.9 ; Tremor R25.1 and Anxiety F41.9 [facility], [place] [address] [phone] Dec, [place] [address] [phone] Nov, Tremors of nervous system R2 5.1 and Cramping of feet R25.2 [place] [address] [place] [id number] [address] [place] [phone] Nov, [facility], [place] [address] [id number] [address] [place] [phone] Nov, [facility], [place] [address] [facility] [id number] [address] [place] [id number] Oct, Chronic obstructive pulmonar y disease, unspecified J44.9 [facility], [place] [address] [facility] [id number] [address] [place] [id number] Oct, [facility], [place] [address] [facility] [id number] [address] [place] [phone] Oct, Tremor R25.1 [place] [address] [facility] [id number] [address] [place] [phone] Oct, Bipolar I disorder with depr ession F31.9 ; Diabetes E11.9 ; PTSD (post-traumatic stress disorder) F43.10 and Panic disorder with agoraphobia F40.01 [place] [id number] [facility] [id number] [address] [place] [phone] Oct, Mood disorder F39 [place] [address] [facility] [id number] [address] [place] [phone] September, [place] [address] [facility] [id number] [address] [place] [phone] September, Diabetes E11.9 ; Bipolar I d isorder with depression F31.9 ; PTSD (post-traumatic stress disorder) F43.10 and Panic disorder with agoraphobia F40.01 [facility], [place] [address] [facility] [id number] [address] [place] [phone] September, Mood disorder F39 ; Schizoaf fective disorder, unspecified type F25.9 ; Arthritis M19.90 ; Tremor R25.1 ; Acute non-recurrent frontal sinusitis J01.10 and Blood in stool K92.1 [place] [address] [facility] [id number] [address] [place] [phone] September, [facility], [place] [address] [id number] [address] [place] [phone] September, Chronic obstructive pulmonar y disease, unspecified J44.9 [facility], [place] [address] [id number] [address] [place] [id number] September, Diabetes E11.9 [facility], [place] [address] [id number] [address] [place] [phone] Aug, Other bipolar disorder F31.8 9 and Anxiety disorder, unspecified F41.9 [facility], [place] [address] [id number] [address] [place] [phone] Aug, [facility], [place] [address] [id number] [address] [place] [phone] Aug, Diabetes E11.9 [facility], [place] [address] [facility] [id number] [address] [place] [phone] Aug, [facility], [place] [address] [facility] [id number] [address] [place] [phone] 14 Aug, 2015 Diabetes E11.9 ; Fatigue R53 .83 and Dizziness R42 [facility], [place] [address] [id number] [address] [place] [phone] Aug, Other bipolar disorder F31.8 9 [facility], [place] [address] [facility] [id number] [address] [place] [phone] Aug, Generalized anxiety disorder F41.1 [facility], [place] [address] [id number] [address] [place] [phone] Aug, Other bipolar disorder F31.8 9 and Anxiety disorder, unspecified F41.9 [facility], [place] [address] [id number] [address] [place] [phone] Aug, [facility], [place] [address] [facility] [id number] [address] [place] [phone] Jul, [facility], [place] [address] [facility] [id number] [address] [place] [phone] Jul, [facility], [place] [address] [facility] [id number] [address] [place] [phone] Jul, Bronchitis J40 [facility], [place] [address] [facility] [id number] [address] [place] [phone] Jul, Anxiety disorder F41.9 [facility], [place] [address] [facility] [id number] [address] [place] [phone] Jul, Other bipolar disorder F31.8 9 and Anxiety disorder, unspecified F41.9 [facility], [place] [address] [facility] [id number] [address] [place] [id number] Jul, Other bipolar disorder F31.8 9 and Fibromyalgia M79.7 [facility], [place] [address] [facility] [id number] [address] [place] [phone] Jul, [facility], [place] [address] [place] [id number] [address] [place] [phone] Jul, [facility], [place] [address] [place] [id number] [address] [place] [phone] Jul, [facility], [place] [address] [place] [id number] [place] [phone] Jul, Other bipolar disorder F31.8 9 and Anxiety disorder, unspecified F41.9 [facility], [place] [address] [place] [id number] [address] [place] [phone] Jun, GERD (gastroesophageal reflu x disease) K21.9 [facility], [place] [address] [place] [id number] [address] [place] [phone] Jun, [facility], [place] [address] [facility] [id number] [address] [place] [phone] May, [facility], [place] [address] [place] [id number] [address] [place] [phone] May, Diabetes E11.9 ; Back pain M 54.9 ; GERD (gastroesophageal reflux disease) K21.9 ; Hypertension I10 and Peripheral neuropathy G62.9 [facility], [place] [address] [id number] [address] [place] [phone] Mar, [facility], [place] [address] [id number] [address] [place] [phone] Mar, [facility], [place] [address] [id number] [address] [place] [phone] Mar, Acute sinusitis J01.90 and O titis media, left H66.92 [facility], [place] [address] [id number] [address] [place] [phone] Feb, [facility], [place] [address] [id number] [address] [place] [phone] Feb, [facility], [place] [address] [id number] [address] [place] [phone] Feb, [facility], [place] [address] [id number] [address] [place] [phone] Feb, [facility], [place] [address] [id number] [address] [place] [phone] Jan, [facility], [place] [address] [id number] [address] [place] [phone] Jan, Diabetes 250.00 and Back higinio n 724.5 [facility], [place] [address] [facility] [id number] [address] [place] [phone] Jan, [facility], [place] [address] [id number] [address] [place] [phone] Dec, Diabetes 250.00 ; Benign ess ential hypertension 401.1 and Allergic rhinitis 477.9 [facility], [place] [address] [id number] [address] [place] [phone] Dec, [facility], [place] [address] [facility] [id number] [address] [place] [phone] Dec, [facility], [place] [address] [id number] [address] [place] [phone] Dec, Psychosis 298.9 [facility], [place] [address] [id number] [address] [place] [phone] Dec, Medication side effect 995.2 0 and Generalized anxiety disorder 300.02 [facility], [place] [address] [facility] [id number] [address] [place] [phone] Dec, Acquired cognitive dysfuncti on 294.9 [facility], [place] [address] [facility] [id number] [address] [place] [phone] Dec, [facility], [place] [address] [facility] [id number] [address] [place] [phone] Dec, Unspecified myalgia and myos itis 729.1 and Generalized anxiety disorder 300.02 [facility], [place] [address] [facility] [id number] [address] [place] [phone] Nov, [facility], [place] [address] [facility] [id number] [address] [place] [phone] Nov, [facility], [place] [address] [facility] [id number] [address] [place] [phone] Nov, [facility], [place] [address] [facility] [id number] [address] [place] [phone] Nov, Upper respiratory infection 465.9 and Chronic airway obstruction, not elsewhere classified 496 [facility] [place] [address] [facility] [id number] [address] [place] [phone] Nov, Hyponatremia 276.1 [facility], [place] [address] [facility] [id number] [address] [place] [phone] Oct, [facility], [place] [address] [facility] [id number] [address] [place] [phone] Oct, [facility], [place] [address] [facility] [id number] [address] [place] [phone] Oct, [facility] [place] [address] [facility] [id number] [address] [place] [phone] Oct, [facility] [place] [address] [facility] [id number] [address] [place] [phone] Oct, Hyponatremia 276.1 [facility] [place] [address] [id number] [address] [place] [phone] Oct, [facility] [address] [id number] [address] [place] [phone] Oct, [facility] [place] [address] [id number] [address] [place] [phone] Oct, Generalized anxiety disorder 300.02 [facility] [address] [id number] [address] [place] [phone] Oct, Generalized anxiety disorder 300.02 and Diabetes 250.00 [facility] [place] [address] [id number] [address] [place] [phone] Aug, [facility] [place] [address] [facility] [id number] [address] [place] [id number] Aug, [facility] [address] [id number] [address] [place] [phone] Jul, [facility] [address] [id number] [address] [place] [phone] Jul, [facility] [address] [id number] [address] [place] [id number] Jun, [facility] [address] [id number] [address] [place] [phone] Jun, [facility] [address] [id number] [address] [place] [phone] Jun, [facility] [address] [id number] [address] [place] [phone] Jun, [facility] [address] [id number] [address] [place] [phone] Jun, [facility] [address] [id number] [address] [place] [phone] May, [facility] [address] [id number] [address] [place] [address], [place] [phone] May, [facility] [address] [id number] [address] [place] [address], [place] [phone] Apr, [facility] [address] [id number] [address] [place] [address], [place] [id number] Apr, [facility] [address] [id number] [address] [place] [address], [place] [id number] Apr, [facility] [address] [id number] [address] [place] [address], [place] [id number] Apr, [facility] [address] [id number] [address] [place] [address], [place] [phone] Apr, [facility] [address] [id number] [address] [place] [address], [place] [phone] Apr, [facility] [address] [id number] [address] [place] [address], [place] [id number] Apr, [facility] [address] [id number] [address] [place] [address], [place] [id number] Apr, [facility] [address] [id number] [address] [place] [address], [place] [address] Feb, [facility] [address] [id number] [address] [place] [address], [place] [phone] Feb, [facility] [address] [id number] [address] [place] [address], [place] [id number] Jan, [facility] [address] [id number] [address] [place] [address], [place] [id number] Jan, [facility] [address] [id number] [address] [place] [address], [place] [id number] Dec, [facility] [address] [id number] [address] [place] [address], [place] [id number] Dec, [facility] [address] [id number] [address] [place] [address], [place] [id number] Dec, [facility] [address] [id number] [address] [place] [address], [place] [address] Nov, [facility] [address] [id number] [address] [place] [address], [place] [address] Nov, [facility] [address] [id number] [address] [place] [address], [place] [id number] Nov, [facility] [address] [id number] [address] [place] [address], [place] [address] Oct, [facility] [address] [id number] [address] [place] [address], [place] [id number] Oct, [facility] [address] [id number] [address] [place] [address], [place] [id number] Oct, [facility] [address] [id number] [address] [place] [address], [place] [id number] September, [facility] [address] [id number] [address] [place] [address], [place] [address] September, [facility] [address] [id number] [address] [place] [address], [place] [address] September, [facility] [address] [id number] [address] [place] [address], [place] [id number] Aug, [facility] [address] [id number] [address] [place] [address], [place] [id number] Aug, [facility] [address] [id number] [address] [place] [address], [place] [id number] Aug, [facility] [address] [id number] [address] [place] [address], [place] [id number] 16 Aug, 2011 [facility] [address] [id number] [address] [place] [address], [place] [id number] Jul, [facility] [address] [id number] [address] [place] [address], [place] [id number] Jun, [facility] [address] [id number] [address] [address] 14 Jun, 2011 [facility] [address] [id number] [address] [place] [address], [place] [id number] 13 Jun, 2011 [facility] [address] [id number] [address] [place] [id number] 07 Jun, 2011 [facility] [address] [id number] [address] [place] [address], [place] [id number] 03 Jun, 2011 [facility] [address] [id number] [address] [place] [id number] 13 May, 2011 [facility] [address] [id number] [address] [place] [address], [place] [address] May, [facility] [address] [id number] [address] [place] [address], [place] [id number] May, [facility] [address] [id number] [address] [place] [phone] May, [facility] [address] [id number] [address] [place] [address], [place] [id number] Apr, [facility] [address] [id number] [address] [place] [phone] Apr, [facility] [address] [id number] [address] [place] [phone] Apr, [facility] [address] [id number] [address] [place] [id number] Mar, [facility] [address] [id number] [address] [place] [phone] Mar, [facility] [address] [id number] [address] [place] [phone] 09 Mar, 2011 [facility] [address] [id number] [address] [place] [phone] 13 Feb, 2011 [facility] [address] [id number] [address] [place] [id number] 13 Feb, 2011 [facility] [address] [id number] [address] [place] [id number] 13 Feb, 2011 [facility] [place] [address] [id number] [address] [place] [phone] Nov, [facility] [place] [address] [id number] [address] [place] [phone] September, [facility] [place] [address] [id number] [address] [place] [id number] Aug, [facility] [place] [address] [id number] [address] [place] [phone] Jul, [facility] [place] [address] [id number] [address] [place] [phone] May, [facility] [place] [address] [id number] [address] [place] [phone] Apr, [facility] [place] [address] [id number] [address] [place] [id number] Apr, [facility] [place] [address] [id number] [address] [place] [phone] Apr, [facility] [place] [address] [id number] [address] [place] [id number] Apr, [facility] [place] [address] [id number] [address] [place] [id number] Apr, IMMUNIZATIONS No Known Immunizations SOCIAL HISTORY Never Assessed REASON FOR VISIT adderall 11/09/2017 PLAN OF CARE VITAL SIGNS MEDICATIONS Medication Instructions Dosage Frequency Start Date End Date Duration S tatus Adderall XR 20 mg Orally Once a day for depression 1 capsule in the morning Nov, 28 days Active RESULTS No Results [...]
--- OUTSIDE RECORDS SUMMARY | 2019-07-17 11:00 | XMS REPORT ---
Author Author Sujey GANDHI Organization [facility] Address [address] [place] [address] Care Team Providers Care Print Support Specialist Name Role Phone WHIT GANDHI Unavailable PROBLEMS Type Condition ICD9-CM Code IHK35-NP Code Onset Dates Condition S tatus SNOMED Code Problem GERD (gastroesophageal reflux disease) K21.9 Active 797748753 Problem Back pain M54.9 Active 689699448 Problem Hypertension I10 Active 1905348 3 Problem Diabetes E11.9 Active 82284651 Problem Anxiety disorder, unspecified F41.9 Active 878918659 Problem Other bipolar disorder F31.89 Active 74877183 Problem Fibromyalgia M79.7 Active 8049817 7 Problem Panic disorder with agoraphobia F40.01 Active 60460555 Problem Chronic obstructive pulmonary disease, unspecified J44.9 Active 26237741 Problem Akathisia G25.71 Active 668177827 Problem Lumbago with sciatica, left side M54.42 Active 456681977 Problem Migraine without aura and without status migrain osus, not intractable G43.009 Active 648687142 Problem Lumbago with sciatica, right side M54.41 Active 477327160 Problem Fibrocystic disease of right breast N60.11 Active 24840038 Problem Arthritis M19.90 Active 5981608 Problem Fibrocystic disease of left breast N60.12 Active 66075649 Problem Daytime somnolence R40.0 Active 1 72729916272 Problem Slow transit constipation K59.01 Acti ve 69660282 Problem Chronic post-traumatic stress disorder (PTSD) F43. 12 Active 720118087 Problem Bipolar 1 disorder, depressed, moderate F31.32 Active 32237055 Problem Other chronic pain G89.29 Active 8 0525599 Problem Irritable bowel syndrome with both constipation and diarrh ea K58.2 Active 63700158 Problem Irritable bowel syndrome with constipation K58.1 Active 692634499 Problem Essential tremor G25.0 Active 609 162414 Problem Schizoaffective disorder, bipolar type F25.0 Active 84406608 Problem Bipolar I disorder with depression F31.9 Active 06074056 Problem Acute non-recurrent maxillary sinusitis J01.00 Active 36497405 Problem Bipolar affective disorder, remission status unspecified F31.9 Active 70330741 Problem Attention deficit hyperactiv ity disorder (ADHD), predominantly inattentive type F90.0 Active 54773393 Problem Moderate persistent asthma without complication J4 5.40 Active 426506034 Problem Panlobular emphysema J43.1 Active 4597578 Problem Bipolar 1 disorder, depressed, partial remission F 31.75 Active 21688542 Problem Mild persistent asthma without complication J45.30 Active 360474289 ALLERGIES No Information ENCOUNTERS Encounter Location Date Diagnosis [place] [address] [place] [id number] [place] [address] Mar, [place] [address] [address] Jan, [place] [address] [address] Dec, Daytime somnolence R40.0 and Right otitis media with effusion H65.91 [place] [id number] [place] [address] Dec, [place] [address] [place] [id number] [address] [place] [address] Dec, Cerebrovascular accident (CV A) due to occlusion of right cerebellar artery I63.541 [place] [address] [place] [id number] [address] [place] [phone] Dec, [facility] [address] [place] [id number] [address] [place] [address] Dec, [place] [address] [place] [id number] [address] [place] [address] Nov, Bipolar 1 disorder, depresse d, partial remission F31.75 and Panic disorder with agoraphobia F40.01 [facility] [address] [place] [id number] [address] [place] [address] Nov, Panlobular emphysema J43.1 [facility] [address] [id number] [address] [place] [address] Nov, Cerebrovascular accident (CV A) due to occlusion of right cerebellar artery I63.541 and Acute non-recurrent maxillary sinusitis J01.00 [facility] [address] [id number] [address] [place] [address] Nov, Panlobular emphysema J43.1 [facility] [address] [id number] [address] [place] [address] Nov, [facility] [address] [id number] [address] [place] [phone] Nov, [facility] [address] [id number] [address] [place] [phone] Nov, [facility] [address] [id number] [address] [place] [address] Nov, [facility] [address] [id number] [address] [place] [address] Nov, [facility] [address] [id number] [address] [place] [phone] Nov, [facility] [address] [id number] [address] [place] [address] Nov, [facility] [address] [id number] [address] [place] [address] Nov, Mild persistent asthma witho ut complication J45.30 and Irritable bowel syndrome with both constipation and diarrhea K58.2 [facility] [address] [id number] [address] [place] [address] Nov, [facility] [address] [id number] [address] [place] [phone] Oct, [facility] [address] [id number] [address] [place] [address] Oct, [facility] [address] [id number] [address] [place] [address] Oct, Type 2 diabetes mellitus wit h diabetic neuropathy, unspecified whether 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 wall 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 insulin use E11.40 ; Diabetes E11.9 ; Slow transit constipation K59.01 ; Edema of both legs R60.0 and Dysfunction of right eustachian tube H69.81 [facility] [address] [id number] [address] [place] [address] Oct, Frequent headaches R51 [facility] [address] [id number] [address] [place] [address] Oct, [facility] [address] [id number] [address] [place] [address] Oct, [facility] [address] [facility] [id number] [address] [place] [address] Oct, [facility] [address] [facility] [id number] [address] [place] [address] Oct, [facility] [address] [facility] [id number] [address] [place] [address] Oct, [facility] [address] [facility] [id number] [address] [place] [address] Oct, [facility] [address] [facility] [id number] [address] [place] [phone] Oct, [facility] [address] [facility] [id number] [address] [place] [address] Oct, [facility] [address] [facility] [id number] [address] [place] [address] September, Frequent headaches R51 [facility] [address] [facility] [id number] [address] [place] [address] September, Bilateral otitis media with effusion H65.93 ; Dizziness R42 and Essential tremor G25.0 [facility] [address] [id number] [address] [place] [address] September, Chronic obstructive pulmonar y disease, unspecified COPD type J44.9 [facility] [address] [id number] [address] [place] [address] September, Chronic obstructive pulmonar y disease, unspecified COPD type J44.9 [facility] [address] [id number] [address] [place] [address] September, Migraine without aura and wi thout status migrainosus, not intractable G43.009 [facility] [address] [id number] [address] [place] [address] September, [facility] [address] [id number] [address] [place] [address] September, [facility] [address] [facility] [id number] [address] [place] [address] September, [facility] [address] [facility] [id number] [address] [place] [address] September, Frequent headaches R51 [facility] [address] [id number] [address] [place] [address] Aug, [facility] [address] [facility] [id number] [address] [place] [address] Aug, Breast mass, right N63.10 [facility] [address] [facility] [id number] [address] [place] [address] Aug, Breast lump N63.0 [facility] [address] [facility] [id number] [address] [place] [address] Aug, [facility] [address] [facility] [id number] [address] [place] [address] Aug, Bipolar affective disorder, remission status unspecified F31.9 and Diabetes E11.9 [facility] [address] [facility] [id number] [address] [place] [address] Aug, Diabetes E11.9 ; Schizoaffec tive disorder, bipolar type F25.0 ; Pharyngitis due to other organism J02.8 ; Panlobular emphysema J43.1 and Irritable bowel syndrome with both constipation and diarrhea K58.2 [place] [address] [id number] [address] [place] [address] Aug, Abnormal mammogram R92.8 [facility] [address] [id number] [address] [place] [address] Aug, [facility] [address] [id number] [address] [place] [address] Aug, Bipolar 1 disorder, depresse d, moderate F31.32 ; Panic disorder with agoraphobia F40.01 and Chronic post-traumatic stress disorder (PTSD) F43.12 [place] [address] [id number] [address] [place] [address] Aug, [place] [address] [id number] [address] [place] [address] Aug, [place] [address] [id number] [address] [place] [address] Aug, [place] [address] [id number] [address] [place] [address] Jul, [place] [address] [facility] [id number] [address] [place] [address] Jul, Mild persistent asthma witho ut complication J45.30 [place] [address] [id number] [address] [place] [address] Jul, Mild persistent asthma witho ut complication J45.30 [place] [address] [id number] [address] [place] [address] 15 Jul, 2017 Bipolar affective disorder, remission status unspecified F31.9 ; Diabetes E11.9 and Irritable bowel syndrome with constipation K58.1 [place] [address] [id number] [address] [place] [address] Jul, [place] [address] [facility] [id number] [address] [place] [address] Jul, [facility] [address] [facility] [id number] [address] [place] [address] Jul, Frequent headaches R51 [facility] [address] [facility] [id number] [address] [place] [address] Jul, [facility] [address] [facility] [id number] [address] [place] [address] Jul, [facility] [address] [facility] [id number] [address] [place] [address] Jul, [facility] [address] [facility] [id number] [address] [place] [address] Jul, Frequent headaches R51 ; Fib rocystic disease of left breast N60.12 ; Fibrocystic disease of right breast N60.11 and Diabetes E11.9 [place] [address] [facility] [id number] [address] [place] [address] Jul, [place] [address] [facility] [id number] [address] [place] [address] Jul, [place] [address] [address] Jun, Exudative tonsillitis J03.90 [place] [address] [place] [id number] [address] [place] [address] Jun, [place] [address] [place] [id number] [address] [place] [address] 19 Jun, 2017 [place] [address] [facility] [id number] [address] [place] [address] 15 Jun, 2017 Mild persistent asthma witho ut complication J45.30 ; Chronic obstructive pulmonary disease, unspecified COPD type J44.9 and Exudative tonsillitis J03.90 [place] [address] [facility] [id number] [address] [place] [address] 13 Jun, 2017 Encounter for immunization Z 23 [place] [address] [place] [id number] [place] [address] Jun, [facility] [address] [facility] [id number] [address] [place] [address] Jun, [facility] [address] [facility] [id number] [address] [place] [address] Jun, [facility] [address] [facility] [id number] [address] [place] [id number] 06 Jun, 2017 Tonsillitis J03.90 [facility] [address] [facility] [id number] [address] [place] [address] Jun, [facility] [address] [facility] [id number] [address] [place] [address] Jun, Acute non-recurrent maxillar y sinusitis J01.00 [facility] [address] [facility] [id number] [address] [place] [address] Jun, [facility] [address] [facility] [id number] [address] [place] [address] May, [facility] [address] [facility] [id number] [address] [place] [address] May, [facility] [address] [facility] [id number] [address] [place] [address] May, GERD (gastroesophageal reflu x disease) K21.9 [facility] [address] [facility] [id number] [address] [place] [address] May, Migraine without aura and wi thout status migrainosus, not intractable G43.009 [facility] [address] [facility] [id number] [address] [place] [address] May, [facility] [address] [facility] [id number] [address] [place] [address] May, [facility] [address] [facility] [id number] [address] [place] [address] May, Panlobular emphysema J43.1 a nd Acute non-recurrent maxillary sinusitis J01.00 [facility] [address] [facility] [id number] [address] [place] [address] May, Bipolar 1 disorder, depresse d, moderate F31.32 ; Panic disorder with agoraphobia F40.01 and Akathisia G25.71 [facility] [address] [facility] [id number] [address] [place] [address] Apr, [facility] [address] [facility] [id number] [address] [place] [phone] Apr, [place] [address] [facility] [id number] [address] [place] [address] Apr, Acute non-recurrent maxillar y sinusitis J01.00 [place] [address] [facility] [id number] [address] [place] [address] Apr, Panlobular emphysema J43.1 [place] [address] [facility] [id number] [address] [place] [address] Apr, [facility] [address] [facility] [id number] [address] [place] [address] 04 Apr, 2017 Sore throat J02.9 and Exudat minoo tonsillitis J03.90 [place] [address] [facility] [id number] [address] [place] [address] 17 Mar, 2017 [facility] [address] [facility] [id number] [address] [place] [address] 15 Mar, 2017 Acute non-recurrent maxillar y sinusitis J01.00 [facility] [address] [facility] [id number] [address] [place] [address] Mar, [place] [address] [place] [id number] [address] [place] [address] 09 Mar, 2017 Panlobular emphysema J43.1 a nd Diabetes E11.9 [facility] [address] [place] [id number] [address] [place] [address] Mar, [facility] [address] [facility] [id number] [address] [place] [address] Feb, Wheezing R06.2 and Acute rec urrent pansinusitis J01.41 [facility] [address] [facility] [id number] [address] [place] [address] Feb, [facility] [address] [facility] [id number] [address] [place] [address] Feb, Acute non-recurrent maxillar y sinusitis J01.00 [facility] [address] [facility] [id number] [address] [place] [address] Feb, Chronic obstructive pulmonar y disease, unspecified J44.9 [facility] [address] [facility] [id number] [address] [place] [address] Feb, Hypoxemia R09.02 and Chronic obstructive pulmonary disease, unspecified J44.9 [facility] [address] [facility] [id number] [address] [place] [id number] 28 Jan, 2017 Bipolar 1 disorder, depresse d, moderate F31.32 ; Panic disorder with agoraphobia F40.01 ; Chronic post-traumatic stress disorder (PTSD) F43.12 ; Diabetes E11.9 and Moderate persistent asthma without complication J45.40 [facility] [address] [facility] [id number] [address] [place] [address] Jan, [facility] [address] [facility] [id number] [address] [place] [id number] 19 Jan, 2017 Acute non-recurrent maxillar y sinusitis J01.00 [facility] [address] [facility] [id number] [address] [place] [address] 18 Jan, 2017 [facility] [address] [facility] [id number] [address] [place] [id number] Jan, [facility] [address] [facility] [id number] [address] [place] [address] Jan, Moderate persistent asthma w [facility] complication J45.40 and Hypoxemia R09.02 [facility] [address] [id number] [address] [place] [address] Jan, Moderate persistent asthma w [facility] complication J45.40 and Hypoxemia R09.02 [facility] [address] [id number] [address] [place] [address] Jan, [facility] [address] [id number] [address] [place] [address] Dec, Acute non-recurrent maxillar y sinusitis J01.00 [facility] [address] [id number] [address] [place] [address] Dec, Chronic obstructive pulmonar y disease, unspecified J44.9 [facility] [address] [id number] [address] [place] [address] Dec, [facility] [address] [id number] [address] [place] [address] Dec, Mild persistent asthma witho id complication J45.30 and Other chronic pain G89.29 [facility] [address] [id number] [address] [place] [address] Nov, [facility] [address] [id number] [address] [place] [address] Nov, Acute non-recurrent maxillar y sinusitis J01.00 [facility] [address] [id number] [address] [place] [id number] Nov, [facility] [address] [id number] [address] [place] [address] Nov, [facility] [address] [id number] [address] [place] [address] Oct, [facility] [address] [facility] [id number] [address] [place] [address] Oct, Bipolar 1 disorder, depresse d, partial remission F31.75 ; Panic disorder with agoraphobia F40.01 and Chronic post-traumatic stress disorder (PTSD) F43.12 [facility] [address] [id number] [address] [place] [address] Oct, Acute non-recurrent maxillar y sinusitis J01.00 [facility] [address] [id number] [address] [place] [id number] Oct, [facility] [address] [facility] [id number] [address] [place] [address] Oct, Diabetes E11.9 [facility] [address] [id number] [address] [place] [address] September, Diabetes E11.9 [facility] [address] [facility] [id number] [address] [place] [address] September, Diabetes E11.9 and Sinus tac hycardia R00.0 [facility] [address] [facility] [id number] [address] [place] [address] September, [facility] [address] [facility] [id number] [address] [place] [address] September, [facility] [address] [facility] [id number] [address] [place] [id number] Aug, Diabetes E11.9 and Lumbago w ith sciatica, right side M54.41 [facility] [address] [facility] [id number] [address] [place] [phone] Aug, [facility] [address] [facility] [id number] [address] [place] [id number] Jul, Bipolar 1 disorder, depresse d, moderate F31.32 ; Panic disorder with agoraphobia F40.01 and Chronic post-traumatic stress disorder (PTSD) F43.12 [facility] [address] [facility] [id number] [address] [place] [id number] Jul, Sore throat J02.9 [facility] [address] [facility] [id number] [address] [place] [id number] Jul, [facility] [address] [id number] [address] [place] [phone] 15 Jul, 2016 [facility] [address] [id number] [address] [place] [id number] Jul, [facility] [address] [id number] [address] [place] [phone] Jul, [facility] [address] [id number] [address] [place] [phone] Jul, Sore throat J02.9 and Pharyn gitis, unspecified etiology J02.9 [facility] [address] [id number] [address] [place] [id number] Jun, [facility] [address] [id number] [address] [place] [phone] Jun, Diabetes E11.9 [facility] [address] [id number] [address] [place] [id number] Jun, [facility] [address] [id number] [address] [place] [id number] Jun, [facility] [address] [id number] [address] [place] [id number] Jun, [facility] [address] [id number] [address] [place] [phone] Jun, [facility] [address] [id number] [address] [place] [phone] Jun, [facility] [address] [id number] [address] [place] [phone] 15 Jun, 2016 [facility] [address] [id number] [address] [place] [id number] Jun, [facility] [address] [id number] [address] [place] [address] Jun, [facility] [address] [id number] [address] [place] [address] May, Diabetes E11.9 ; Bipolar I d isorder with depression F31.9 ; Other chronic pain G89.29 ; Acute recurrent maxillary sinusitis J01.01 and Anxiety disorder, unspecified F41.9 [place] [address] [id number] [address] [place] [address] May, [place] [address] [id number] [address] [place] [address] May, Diabetes E11.9 ; Bipolar I d isorder with depression F31.9 ; Anxiety disorder, unspecified F41.9 ; Other chronic pain G89.29 and Acute recurrent maxillary sinusitis J01.01 [place] [address] [facility] [id number] [address] [place] [address] May, [place] [address] [facility] [id number] [address] [place] [address] May, Attention deficit hyperactiv ity disorder (ADHD), predominantly inattentive type F90.0 [place] [address] [facility] [id number] [address] [place] [phone] May, [place] [address] [facility] [id number] [place] [address] Apr, Attention deficit hyperactiv ity disorder (ADHD), predominantly inattentive type F90.0 and Non-seasonal allergic rhinitis due to other allergic trigger J30.89 [place] [address] [place] [id number] [address] [place] [address] Apr, Bipolar 1 disorder, depresse d, moderate F31.32 ; Panic disorder with agoraphobia F40.01 and Chronic post-traumatic stress disorder (PTSD) F43.12 [place] [address] [place] [id number] [address] [place] [address] Apr, Dental examination Z01.20 [place] [address] [facility] [id number] [address] [place] [phone] Mar, [place] [address] [place] [id number] [place] [address] Mar, [facility] [address] [id number] [address] [place] [phone] Mar, Bipolar I disorder with depr ession F31.9 and Anxiety disorder, unspecified F41.9 [facility] [address] [id number] [address] [place] [id number] 08 Mar, 2016 Panic disorder with agorapho syd F40.01 ; Bipolar 1 disorder, depressed, moderate F31.32 and Chronic post-traumatic stress disorder (PTSD) F43.12 [facility] [address] [id number] [address] [place] [phone] Mar, [facility] [address] [id number] [address] [place] [address] Mar, Dental caries K02.9 [facility] [address] [id number] [address] [place] [phone] 24 Feb, 2016 Lumbago with sciatica, left side M54.42 ; Lumbago with sciatica, right side M54.41 and Other chronic pain G89.29 [facility] [address] [id number] [address] [place] [phone] Feb, [facility] [address] [id number] [address] [place] [id number] 14 Feb, 2016 [facility] [address] [id number] [address] [place] [phone] 13 Feb, 2016 Bipolar I disorder with depr ession F31.9 ; PTSD (post-traumatic stress disorder) F43.10 and Mood disorder F39 [facility] [address] [id number] [address] [place] [address] Feb, [facility] [address] [id number] [address] [place] [phone] 11 Feb, 2016 Dental examination Z01.20 [facility] [address] [id number] [address] [place] [phone] 07 Feb, 2016 [facility] [address] [facility] [id number] [address] [place] [phone] Feb, Acute bronchitis, unspecifie d organism J20.9 [facility] [address] [place] [id number] [address] [place] [address] Jan, Mood disorder F39 ; Migraine without aura and without status migrainosus, not intractable G43.009 ; Irritable bowel syndrome, unspecified type K58.9 ; Diabetes E11.9 and Encounter for immunization Z23 [facility] [address] [address] Jan, [facility] [address] [address] Jan, [place] [address] [address] Jan, [facility] [address] [address] Jan, [facility] [address] [phone] Jan, [facility] [address] [address] Dec, Bipolar I disorder with depr ession F31.9 ; PTSD (post-traumatic stress disorder) F43.10 and Panic disorder with agoraphobia F40.01 [facility] [address] [place] [id number] [address] [place] [phone] Dec, Chronic obstructive pulmonar y disease, unspecified COPD type J44.9 ; Tremor R25.1 and Anxiety F41.9 [facility] [address] [address] Dec, [place] [address] [address] Nov, Tremors of nervous system R2 5.1 and Cramping of feet R25.2 [place] [address] [place] [id number] [address] [place] [phone] Nov, [facility] [address] [id number] [address] [place] [phone] Nov, [facility] [address] [facility] [id number] [address] [place] [address] Oct, Chronic obstructive pulmonar y disease, unspecified J44.9 [facility] [address] [facility] [id number] [address] [place] [address] Oct, [facility] [address] [facility] [id number] [address] [place] [address] Oct, Tremor R25.1 [place] [address] [facility] [id number] [address] [place] [address] Oct, Bipolar I disorder with depr ession F31.9 ; Diabetes E11.9 ; PTSD (post-traumatic stress disorder) F43.10 and Panic disorder with agoraphobia F40.01 [place] [address] [facility] [id number] [address] [place] [address] Oct, Mood disorder F39 [place] [address] [facility] [id number] [address] [place] [address] September, [place] [address] [facility] [id number] [address] [place] [address] September, Diabetes E11.9 ; Bipolar I d isorder with depression F31.9 ; PTSD (post-traumatic stress disorder) F43.10 and Panic disorder with agoraphobia F40.01 [facility] [address] [facility] [id number] [address] [place] [address] September, Mood disorder F39 ; Schizoaf fective disorder, unspecified type F25.9 ; Arthritis M19.90 ; Tremor R25.1 ; Acute non-recurrent frontal sinusitis J01.10 and Blood in stool K92.1 [place] [address] [facility] [id number] [address] [place] [address] September, [facility] [address] [id number] [address] [place] [address] September, Chronic obstructive pulmonar y disease, unspecified J44.9 [facility] [address] [id number] [address] [place] [address] September, Diabetes E11.9 [facility] [address] [id number] [address] [place] [address] Aug, Other bipolar disorder F31.8 9 and Anxiety disorder, unspecified F41.9 [facility] [address] [id number] [address] [place] [address] Aug, [facility] [address] [id number] [address] [place] [address] Aug, Diabetes E11.9 [facility] [address] [facility] [id number] [address] [place] [address] Aug, [facility] [address] [facility] [id number] [address] [place] [address] 14 Aug, 2015 Diabetes E11.9 ; Fatigue R53 .83 and Dizziness R42 [facility] [address] [id number] [address] [place] [address] Aug, Other bipolar disorder F31.8 9 [facility] [address] [facility] [id number] [address] [place] [address] Aug, Generalized anxiety disorder F41.1 [facility] [address] [id number] [address] [place] [address] Aug, Other bipolar disorder F31.8 9 and Anxiety disorder, unspecified F41.9 [facility] [address] [id number] [address] [place] [address] Aug, [facility] [address] [facility] [id number] [address] [place] [phone] Jul, [facility] [address] [facility] [id number] [address] [place] [address] Jul, [facility] [address] [facility] [id number] [address] [place] [address] Jul, Bronchitis J40 [facility] [address] [facility] [id number] [address] [place] [address] Jul, Anxiety disorder F41.9 [facility] [address] [facility] [id number] [address] [place] [phone] Jul, Other bipolar disorder F31.8 9 and Anxiety disorder, unspecified F41.9 [facility] [address] [facility] [id number] [address] [place] [address] Jul, Other bipolar disorder F31.8 9 and Fibromyalgia M79.7 [facility] [address] [facility] [id number] [address] [place] [address] Jul, [facility] [address] [place] [id number] [address] [place] [address] Jul, [facility] [address] [place] [id number] [address] [place] [address] Jul, [facility] [address] [place] [id number] [place] [address] Jul, Other bipolar disorder F31.8 9 and Anxiety disorder, unspecified F41.9 [facility] [address] [place] [id number] [address] [place] [address] Jun, GERD (gastroesophageal reflu x disease) K21.9 [facility] [address] [place] [id number] [address] [place] [address] Jun, [facility] [address] [facility] [id number] [address] [place] [phone] May, [facility] [address] [place] [id number] [address] [place] [address] May, Diabetes E11.9 ; Back pain M 54.9 ; GERD (gastroesophageal reflux disease) K21.9 ; Hypertension I10 and Peripheral neuropathy G62.9 [facility] [address] [id number] [address] [place] [address] Mar, [facility] [address] [id number] [address] [place] [address] Mar, [facility] [address] [id number] [address] [place] [address] Mar, Acute sinusitis J01.90 and O titis media, left H66.92 [facility] [address] [id number] [address] [place] [address] Feb, [facility] [address] [id number] [address] [place] [address] Feb, [facility] [address] [id number] [address] [place] [address] Feb, [facility] [address] [id number] [address] [place] [phone] Feb, [facility] [address] [id number] [address] [place] [address] Jan, [facility] [address] [id number] [address] [place] [address] Jan, Diabetes 250.00 and Back higinio n 724.5 [facility] [address] [facility] [id number] [address] [place] [address] Jan, [facility] [address] [id number] [address] [place] [address] Dec, Diabetes 250.00 ; Benign ess ential hypertension 401.1 and Allergic rhinitis 477.9 [facility] [address] [id number] [address] [place] [address] Dec, [facility] [address] [facility] [id number] [address] [place] [id number] Dec, [facility] [address] [id number] [address] [place] [address] Dec, Psychosis 298.9 [facility] [address] [id number] [address] [place] [address] Dec, Medication side effect 995.2 0 and Generalized anxiety disorder 300.02 [facility] [address] [facility] [id number] [address] [place] [address] Dec, Acquired cognitive dysfuncti on 294.9 [facility] [address] [facility] [id number] [address] [place] [address] Dec, [facility] [address] [facility] [id number] [address] [place] [address] Dec, Unspecified myalgia and myos itis 729.1 and Generalized anxiety disorder 300.02 [facility] [address] [facility] [id number] [address] [place] [address] Nov, [facility] [address] [facility] [id number] [address] [place] [address] Nov, [facility] [address] [facility] [id number] [address] [place] [phone] Nov, [facility] [address] [facility] [id number] [address] [place] [address] Nov, Upper respiratory infection 465.9 and Chronic airway obstruction, not elsewhere classified 496 [facility] [address] [facility] [id number] [address] [place] [address] Nov, Hyponatremia 276.1 [facility] [address] [facility] [id number] [address] [place] [address] Oct, [facility] [address] [facility] [id number] [address] [place] [address] Oct, [facility] [address] [facility] [id number] [address] [place] [phone] Oct, [facility] [address] [facility] [id number] [address] [place] [address] Oct, [facility] [address] [facility] [id number] [address] [place] [address] Oct, Hyponatremia 276.1 [facility] [address] [id number] [address] [place] [phone] Oct, [facility] [address] [id number] [address] [place] [address] Oct, [facility] [address] [id number] [address] [place] [address] Oct, Generalized anxiety disorder 300.02 [facility] [address] [id number] [address] [place] [address] Oct, Generalized anxiety disorder 300.02 and Diabetes 250.00 [facility] [address] [id number] [address] [place] [address] Aug, [facility] [address] [facility] [id number] [address] [place] [address] Aug, [facility] [address] [id number] [address] [place] [address] Jul, [facility] [address] [id number] [address] [place] [address] Jul, [facility] [address] [id number] [address] [place] [address] Jun, [facility] [address] [id number] [address] [place] [address] Jun, [facility] [address] [id number] [address] [place] [address] Jun, [facility] [address] [id number] [address] [place] [address] Jun, [facility] [address] [id number] [address] [place] [address] Jun, [facility] [address] [id number] [address] [place] [phone] May, [facility] [address] [id number] [address] [place] [address], [place] [address] May, [facility] [address] [id number] [address] [place] [address], [place] [address] Apr, [facility] [address] [id number] [address] [place] [address], [place] [address] Apr, [facility] [address] [id number] [address] [place] [address], [place] [address] Apr, [facility] [address] [id number] [address] [place] [address], [place] [address] Apr, [facility] [address] [id number] [address] [place] [address], [place] [address] Apr, [facility] [address] [id number] [address] [place] [address], [place] [address] Apr, [facility] [address] [id number] [address] [place] [address], [place] [address] Apr, [facility] [address] [id number] [address] [place] [address], [place] [address] Apr, [facility] [address] [id number] [address] [place] [address], [place] [address] Feb, [facility] [address] [id number] [address] [place] [address], [place] [address] Feb, [facility] [address] [id number] [address] [place] [address], [place] [address] Jan, [facility] [address] [id number] [address] [place] [address], [place] [address] Jan, [facility] [address] [id number] [address] [place] [address], [place] [address] Dec, [facility] [address] [id number] [address] [place] [address], [place] [address] Dec, [facility] [address] [id number] [address] [place] [address], [place] [address] Dec, [facility] [address] [id number] [address] [place] [address], [place] [address] Nov, [facility] [address] [id number] [address] [place] [address], [place] [address] Nov, [facility] [address] [id number] [address] [place] [address], [place] [address] Nov, [facility] [address] [id number] [address] [place] [address], [place] [address] Oct, [facility] [address] [id number] [address] [place] [address], [place] [address] Oct, [facility] [address] [id number] [address] [place] [address], [place] [address] Oct, [facility] [address] [id number] [address] [place] [address], [place] [address] September, [facility] [address] [id number] [address] [place] [address], [place] [address] September, [facility] [address] [id number] [address] [place] [address], [place] [address] September, [facility] [address] [id number] [address] [place] [address], [place] [address] Aug, [facility] [address] [id number] [address] [place] [address], [place] [address] Aug, [facility] [address] [id number] [address] [place] [address], [place] [address] Aug, [facility] [address] [id number] [address] [place] [address], [place] [address] 16 Aug, 2011 [facility] [address] [id number] [address] [place] [address], [place] [address] Jul, [facility] [address] [id number] [address] [place] [address], [place] [address] Jun, [facility] [address] [id number] [address] [address] 14 Jun, 2011 [facility] [address] [id number] [address] [place] [address], [place] [address] 13 Jun, 2011 [facility] [address] [id number] [address] [place] [id number] 07 Jun, 2011 [facility] [address] [id number] [address] [place] [address], [place] [address] 03 Jun, 2011 [facility] [address] [id number] [address] [place] [id number] 13 May, 2011 [facility] [address] [id number] [address] [place] [address], [place] [address] May, [facility] [address] [id number] [address] [place] [address], [place] [phone] May, [facility] [address] [id number] [address] [place] [phone] May, [facility] [address] [id number] [address] [place] [address], [place] [phone] Apr, [facility] [address] [id number] [address] [place] [phone] Apr, [facility] [address] [id number] [address] [place] [phone] Apr, [facility] [address] [id number] [address] [place] [phone] Mar, [facility] [address] [id number] [address] [place] [phone] Mar, [facility] [address] [id number] [address] [place] [phone] 09 Mar, 2011 [facility] [address] [id number] [address] [place] [phone] 13 Feb, 2011 [facility] [address] [id number] [address] [place] [phone] 13 Feb, 2011 [facility] [address] [id number] [address] [place] [id number] 13 Feb, 2011 [facility] [address] [id number] [address] [place] [phone] 11 Nov, 2010 [facility] [address] [id number] [address] [place] [id number] 16 Sep, 2010 [facility] [address] [id number] [address] [place] [phone] Aug, [facility] [address] [id number] [address] [place] [phone] Jul, [facility] [address] [id number] [address] [place] [phone] May, [facility] [address] [id number] [address] [place] [phone] Apr, [facility] [address] [id number] [address] [place] [phone] Apr, [facility] [address] [id number] [address] [place] [phone] Apr, [facility] [address] [id number] [address] [place] [phone] Apr, [facility] [address] [id number] [address] [place] [phone] Apr, IMMUNIZATIONS No Known Immunizations SOCIAL HISTORY Never Assessed REASON FOR VISIT [facility] note PLAN OF CARE VITAL SIGNS MEDICATIONS [...]
--- OUTSIDE RECORDS SUMMARY | 2019-07-17 11:00 | XMS REPORT ---
Author Author Sujey GANDHI Organization [facility] Address [address] [place] [address] Care Team Providers Care Cv/Cvn Cv Tsc System Operator Name Role Phone WHIT GANDHI Unavailable PROBLEMS Type Condition ICD9-CM Code [id number] Code Onset Dates Condition S tatus SNOMED Code Problem GERD (gastroesophageal reflux disease) K21.9 Active 339653727 Problem Back pain M54.9 Active 950854348 Problem Hypertension I10 Active 1221386 3 Problem Diabetes E11.9 Active 87384845 Problem Anxiety disorder, unspecified F41.9 Active 065970339 Problem Other bipolar disorder F31.89 Active 52031577 Problem Fibromyalgia M79.7 Active 2470656 7 Problem Panic disorder with agoraphobia F40.01 Active 76482277 Problem Chronic obstructive pulmonary disease, unspecified J44.9 Active 79255235 Problem Akathisia G25.71 Active 938939674 Problem Lumbago with sciatica, left side M54.42 Active 043677639 Problem Migraine without aura and without status migrain osus, not intractable G43.009 Active 383758436 Problem Lumbago with sciatica, right side M54.41 Active 686554751 Problem Fibrocystic disease of right breast N60.11 Active 98457671 Problem Arthritis M19.90 Active 3258043 Problem Fibrocystic disease of left breast N60.12 Active 43379308 Problem Daytime somnolence R40.0 Active 1 12963012605 Problem Slow transit constipation K59.01 Acti ve 24536000 Problem Chronic post-traumatic stress disorder (PTSD) F43. 12 Active 712043236 Problem Bipolar 1 disorder, depressed, moderate F31.32 Active 42211224 Problem Other chronic pain G89.29 Active 8 8230849 Problem Irritable bowel syndrome with both constipation and diarrh ea K58.2 Active 03366054 Problem Irritable bowel syndrome with constipation K58.1 Active 001416074 Problem Essential tremor G25.0 Active 609 162466 Problem Schizoaffective disorder, bipolar type F25.0 Active 42638764 Problem Bipolar I disorder with depression F31.9 Active 01260503 Problem Acute non-recurrent maxillary sinusitis J01.00 Active 82587494 Problem Bipolar affective disorder, remission status unspecified F31.9 Active 66363333 Problem Attention deficit hyperactiv ity disorder (ADHD), predominantly inattentive type F90.0 Active 86609306 Problem Moderate persistent asthma without complication J4 5.40 Active 094604216 Problem Panlobular emphysema J43.1 Active 5897090 Problem Bipolar 1 disorder, depressed, partial remission F 31.75 Active 96981346 Problem Mild persistent asthma without complication J45.30 Active 430935255 ALLERGIES No Information ENCOUNTERS Encounter Location Date Diagnosis [place] [address] [place] [id number] [place] [phone] Mar, [place] [address] [phone] Jan, [place] [address] [address] Dec, Daytime somnolence R40.0 and Right otitis media with effusion H65.91 [place] [id number] [place] [id number] Dec, [place] [address] [place] [id number] [address] [place] [id number] Dec, Cerebrovascular accident (CV A) due to occlusion of right cerebellar artery I63.541 [place] [address] [place] [id number] [address] [place] [id number] Dec, [facility] [address] [place] [id number] [address] [place] [id number] Dec, [place] [address] [place] [id number] [address] [place] [id number] Nov, Bipolar 1 disorder, depresse d, partial remission F31.75 and Panic disorder with agoraphobia F40.01 [facility] [address] [place] [id number] [address] [place] [phone] Nov, Panlobular emphysema J43.1 [facility] [address] [id number] [address] [place] [id number] Nov, Cerebrovascular accident (CV A) due to occlusion of right cerebellar artery I63.541 and Acute non-recurrent maxillary sinusitis J01.00 [facility] [address] [id number] [address] [place] [id number] Nov, Panlobular emphysema J43.1 [facility] [address] [id number] [address] [place] [id number] Nov, [facility] [address] [id number] [address] [place] [id number] Nov, [facility] [address] [id number] [address] [place] [phone] Nov, [facility] [address] [id number] [address] [place] [phone] Nov, [facility] [address] [id number] [address] [place] [phone] Nov, [facility] [address] [id number] [address] [place] [phone] Nov, [facility] [address] [id number] [address] [place] [id number] Nov, [facility] [address] [id number] [address] [place] [id number] Nov, Mild persistent asthma witho ut complication J45.30 and Irritable bowel syndrome with both constipation and diarrhea K58.2 [facility] [address] [id number] [address] [place] [phone] Nov, [facility] [address] [id number] [address] [place] [phone] Oct, [facility] [address] [id number] [address] [place] [id number] Oct, [facility] [address] [id number] [address] [place] [id number] Oct, Type 2 diabetes mellitus wit h diabetic neuropathy, unspecified whether training developer insulin use E11.40 ; Diabetes E11.9 ; Slow transit constipation K59.01 ; Edema of both legs R60.0 and Dysfunction of right eustachian tube H69.81 [facility] [address] [id number] [address] [place] [phone] Oct, Frequent headaches R51 [facility] [address] [id number] [address] [place] [phone] Oct, [facility] [address] [id number] [address] [place] [phone] Oct, [facility] [address] [facility] [id number] [address] [place] [id number] Oct, [facility] [address] [facility] [id number] [address] [place] [phone] Oct, [facility] [address] [facility] [id number] [address] [place] [phone] Oct, [facility] [address] [facility] [id number] [address] [place] [phone] Oct, [facility] [address] [facility] [id number] [address] [place] [phone] Oct, [facility] [address] [facility] [id number] [address] [place] [id number] Oct, [facility] [address] [facility] [id number] [address] [place] [phone] September, Frequent headaches R51 [facility] [address] [facility] [id number] [address] [place] [address] September, Bilateral otitis media with effusion H65.93 ; Dizziness R42 and Essential tremor G25.0 [facility] [address] [id number] [address] [place] [id number] September, Chronic obstructive pulmonar y disease, unspecified COPD type J44.9 [facility] [address] [id number] [address] [place] [phone] September, Chronic obstructive pulmonar y disease, unspecified COPD type J44.9 [facility] [address] [id number] [address] [place] [id number] September, Migraine without aura and wi thout status migrainosus, not intractable G43.009 [facility] [address] [id number] [address] [place] [phone] September, [facility] [address] [id number] [address] [place] [phone] September, [facility] [address] [facility] [id number] [address] [place] [phone] September, [facility] [address] [facility] [id number] [address] [place] [phone] September, Frequent headaches R51 [facility] [address] [id number] [address] [place] [id number] Aug, [facility] [address] [facility] [id number] [address] [place] [id number] Aug, Breast mass, right N63.10 [facility] [address] [facility] [id number] [address] [place] [id number] Aug, Breast lump N63.0 [facility] [address] [facility] [id number] [address] [place] [id number] Aug, [facility] [address] [facility] [id number] [address] [place] [id number] Aug, Bipolar affective disorder, remission status unspecified F31.9 and Diabetes E11.9 [facility] [address] [facility] [id number] [address] [place] [id number] Aug, Diabetes E11.9 ; Schizoaffec tive disorder, bipolar type F25.0 ; Pharyngitis due to other organism J02.8 ; Panlobular emphysema J43.1 and Irritable bowel syndrome with both constipation and diarrhea K58.2 [place] [address] [id number] [address] [place] [phone] Aug, Abnormal mammogram R92.8 [facility] [address] [id number] [address] [place] [phone] Aug, [facility] [address] [id number] [address] [place] [id number] Aug, Bipolar 1 disorder, depresse d, moderate F31.32 ; Panic disorder with agoraphobia F40.01 and Chronic post-traumatic stress disorder (PTSD) F43.12 [place] [address] [id number] [address] [place] [phone] Aug, [place] [address] [id number] [address] [place] [phone] Aug, [place] [address] [id number] [address] [place] [phone] Aug, [place] [address] [id number] [address] [place] [phone] Jul, [place] [address] [facility] [id number] [address] [place] [id number] Jul, Mild persistent asthma witho ut complication J45.30 [place] [address] [id number] [address] [place] [id number] Jul, Mild persistent asthma witho ut complication J45.30 [place] [address] [id number] [address] [place] [id number] 15 Jul, 2017 Bipolar affective disorder, remission status unspecified F31.9 ; Diabetes E11.9 and Irritable bowel syndrome with constipation K58.1 [place] [address] [id number] [address] [place] [id number] Jul, [place] [address] [facility] [id number] [address] [place] [phone] Jul, [facility] [address] [facility] [id number] [address] [place] [phone] Jul, Frequent headaches R51 [facility] [address] [facility] [id number] [address] [place] [id number] Jul, [facility] [address] [facility] [id number] [address] [place] [id number] Jul, [facility] [address] [facility] [id number] [address] [place] [id number] Jul, [facility] [address] [facility] [id number] [address] [place] [id number] Jul, Frequent headaches R51 ; Fib rocystic disease of left breast N60.12 ; Fibrocystic disease of right breast N60.11 and Diabetes E11.9 [place] [address] [facility] [id number] [address] [place] [phone] Jul, [place] [address] [facility] [id number] [address] [place] [id number] Jul, [place] [address] [phone] Jun, Exudative tonsillitis J03.90 [place] [address] [place] [id number] [address] [place] [phone] Jun, [place] [address] [place] [id number] [address] [place] [id number] 19 Jun, 2017 [place] [address] [facility] [id number] [address] [place] [id number] 15 Jun, 2017 Mild persistent asthma witho ut complication J45.30 ; Chronic obstructive pulmonary disease, unspecified COPD type J44.9 and Exudative tonsillitis J03.90 [place] [address] [facility] [id number] [address] [place] [id number] 13 Jun, 2017 Encounter for immunization Z 23 [place] [address] [place] [id number] [place] [phone] Jun, [facility] [address] [facility] [id number] [address] [place] [phone] Jun, [facility] [address] [facility] [id number] [address] [place] [phone] Jun, [facility] [address] [facility] [id number] [address] [place] [id number] 06 Jun, 2017 Tonsillitis J03.90 [facility] [address] [facility] [id number] [address] [place] [phone] Jun, [facility] [address] [facility] [id number] [address] [place] [id number] Jun, Acute non-recurrent maxillar y sinusitis J01.00 [facility] [address] [facility] [id number] [address] [place] [phone] Jun, [facility] [address] [facility] [id number] [address] [place] [id number] May, [facility] [address] [facility] [id number] [address] [place] [id number] May, [facility] [address] [facility] [id number] [address] [place] [phone] May, GERD (gastroesophageal reflu x disease) K21.9 [facility] [address] [facility] [id number] [address] [place] [id number] May, Migraine without aura and wi thout status migrainosus, not intractable G43.009 [facility] [address] [facility] [id number] [address] [place] [id number] May, [facility] [address] [facility] [id number] [address] [place] [id number] May, [facility] [address] [facility] [id number] [address] [place] [id number] May, Panlobular emphysema J43.1 a nd Acute non-recurrent maxillary sinusitis J01.00 [facility] [address] [id number] [address] [place] [id number] May, Bipolar 1 disorder, depresse d, moderate F31.32 ; Panic disorder with agoraphobia F40.01 and Akathisia G25.71 [facility] [address] [id number] [address] [place] [phone] Apr, [facility] [address] [id number] [address] [place] [phone] Apr, [facility] [address] [facility] [id number] [address] [place] [id number] Apr, Acute non-recurrent maxillar y sinusitis J01.00 [facility] [address] [facility] [id number] [address] [place] [id number] Apr, Panlobular emphysema J43.1 [facility] [address] [id number] [address] [place] [id number] Apr, [facility] [address] [facility] [id number] [address] [place] [id number] 04 Apr, 2017 Exudative tonsillitis J03.90 and Sore throat J02.9 [facility] [address] [facility] [id number] [address] [place] [id number] 17 Mar, 2017 [facility] [address] [facility] [id number] [address] [place] [id number] 15 Mar, 2017 Acute non-recurrent maxillar y sinusitis J01.00 [facility] [address] [id number] [address] [place] [id number] Mar, [facility] [address] [facility] [id number] [address] [place] [phone] 09 Mar, 2017 Panlobular emphysema J43.1 a nd Diabetes E11.9 [facility] [address] [facility] [id number] [address] [place] [phone] Mar, [facility] [address] [facility] [id number] [address] [place] [id number] 24 Feb, 2017 Wheezing R06.2 and Acute rec urrent pansinusitis J01.41 [facility] [address] [facility] [id number] [address] [place] [id number] Feb, [facility] [address] [facility] [id number] [address] [place] [id number] Feb, Acute non-recurrent maxillar y sinusitis J01.00 [facility] [address] [facility] [id number] [address] [place] [id number] Feb, Chronic obstructive pulmonar y disease, unspecified J44.9 [facility] [address] [facility] [id number] [address] [place] [id number] Feb, Hypoxemia R09.02 and Chronic obstructive pulmonary disease, unspecified J44.9 [facility] [address] [facility] [id number] [address] [place] [id number] 28 Jan, 2017 Bipolar 1 disorder, depresse d, moderate F31.32 ; Panic disorder with agoraphobia F40.01 ; Chronic post-traumatic stress disorder (PTSD) F43.12 ; Diabetes E11.9 and Moderate persistent asthma without complication J45.40 [facility] [address] [facility] [id number] [address] [place] [id number] 22 Jan, 2017 [facility] [address] [facility] [id number] [address] [place] [id number] 19 Jan, 2017 Acute non-recurrent maxillar y sinusitis J01.00 [facility] [address] [facility] [id number] [address] [place] [id number] 18 Jan, 2017 [facility] [address] [facility] [id number] [address] [place] [phone] 18 Jan, 2017 [facility] [address] [facility] [id number] [address] [place] [id number] 12 Jan, 2017 Moderate persistent asthma w [facility] complication J45.40 and Hypoxemia R09.02 [facility] [address] [id number] [address] [place] [phone] Jan, Moderate persistent asthma w [facility] complication J45.40 and Hypoxemia R09.02 [facility] [address] [id number] [address] [place] [phone] Jan, [facility] [address] [id number] [address] [place] [id number] Dec, Acute non-recurrent maxillar y sinusitis J01.00 [facility] [address] [id number] [address] [place] [id number] Dec, Chronic obstructive pulmonar y disease, unspecified J44.9 [facility] [address] [id number] [address] [place] [id number] Dec, [facility] [address] [id number] [address] [place] [id number] Dec, Mild [facility] J45.30 and Other chronic pain G89.29 [facility] [address] [id number] [address] [place] [phone] Nov, [facility] [address] [id number] [address] [place] [id number] Nov, Acute non-recurrent maxillar y sinusitis J01.00 [facility] [address] [id number] [address] [place] [id number] Nov, [facility] [address] [id number] [address] [place] [phone] Nov, [facility] [address] [id number] [address] [place] [phone] Oct, [facility] [address] [facility] [id number] [address] [place] [phone] Oct, Bipolar 1 disorder, depresse d, partial remission F31.75 ; Panic disorder with agoraphobia F40.01 and Chronic post-traumatic stress disorder (PTSD) F43.12 [facility] [address] [id number] [address] [place] [id number] Oct, Acute non-recurrent maxillar y sinusitis J01.00 [facility] [address] [id number] [address] [place] [phone] Oct, [facility] [address] [facility] [id number] [address] [place] [id number] Oct, Diabetes E11.9 [facility] [address] [id number] [address] [place] [id number] September, Diabetes E11.9 [facility] [address] [id number] [address] [place] [id number] September, Diabetes E11.9 and Sinus tac hycardia R00.0 [facility] [address] [facility] [id number] [address] [place] [id number] September, [facility] [address] [facility] [id number] [address] [place] [id number] September, [facility] [address] [facility] [id number] [address] [place] [id number] Aug, Diabetes E11.9 and Lumbago w ith sciatica, right side M54.41 [facility] [address] [facility] [id number] [address] [place] [id number] Aug, [facility] [address] [facility] [id number] [address] [place] [id number] Jul, Bipolar 1 disorder, depresse d, moderate F31.32 ; Panic disorder with agoraphobia F40.01 and Chronic post-traumatic stress disorder (PTSD) F43.12 [facility] [address] [facility] [id number] [address] [place] [id number] Jul, Sore throat J02.9 [facility] [address] [facility] [id number] [address] [place] [id number] Jul, [facility] [address] [id number] [address] [place] [id number] Jul, [facility] [address] [id number] [address] [place] [id number] Jul, [facility] [address] [id number] [address] [place] [id number] Jul, [facility] [address] [id number] [address] [place] [id number] Jul, Sore throat J02.9 and Pharyn gitis, unspecified etiology J02.9 [facility] [address] [id number] [address] [place] [id number] Jun, [facility] [address] [id number] [address] [place] [id number] Jun, Diabetes E11.9 [facility] [address] [id number] [address] [place] [id number] Jun, [facility] [address] [id number] [address] [place] [id number] Jun, [facility] [address] [id number] [address] [place] [id number] Jun, [facility] [address] [id number] [address] [place] [address] Jun, [facility] [address] [id number] [address] [place] [phone] Jun, [facility] [address] [id number] [address] [place] [phone] Jun, [facility] [address] [id number] [address] [place] [id number] Jun, [facility] [address] [id number] [address] [place] [address] Jun, [facility] [address] [id number] [address] [place] [address] May, Diabetes E11.9 ; Other chron ic pain G89.29 ; Acute recurrent maxillary sinusitis J01.01 ; Bipolar I disorder with depression F31.9 and Anxiety disorder, unspecified F41.9 [place] [address] [id number] [address] [place] [address] May, [place] [address] [facility] [id number] [address] [place] [address] May, Diabetes E11.9 ; Bipolar I d isorder with depression F31.9 ; Anxiety disorder, unspecified F41.9 ; Other chronic pain G89.29 and Acute recurrent maxillary sinusitis J01.01 [place] [address] [facility] [id number] [address] [place] [address] May, [place] [address] [facility] [id number] [address] [place] [address] May, Attention deficit hyperactiv ity disorder (ADHD), predominantly inattentive type F90.0 [place] [address] [facility] [id number] [address] [place] [address] May, [place] [address] [facility] [id number] [address] [place] [address] Apr, Attention deficit hyperactiv ity disorder (ADHD), predominantly inattentive type F90.0 and Non-seasonal allergic rhinitis due to other allergic trigger J30.89 [place] [address] [place] [id number] [address] [place] [address] Apr, Bipolar 1 disorder, depresse d, moderate F31.32 ; Panic disorder with agoraphobia F40.01 and Chronic post-traumatic stress disorder (PTSD) F43.12 [place] [address] [facility] [id number] [address] [place] [address] Apr, Dental examination Z01.20 [place] [address] [facility] [id number] [address] [place] [address] Mar, [place] [address] [place] [id number] [address] [place] [address] Mar, [facility] [address] [id number] [address] [place] [address] Mar, Bipolar I disorder with depr ession F31.9 and Anxiety disorder, unspecified F41.9 [facility] [address] [id number] [address] [place] [phone] 08 Mar, 2016 Panic disorder with agorapho syd F40.01 ; Bipolar 1 disorder, depressed, moderate F31.32 and Chronic post-traumatic stress disorder (PTSD) F43.12 [facility] [address] [id number] [address] [place] [address] Mar, [facility] [address] [id number] [address] [place] [address] Mar, Dental caries K02.9 [facility] [address] [id number] [address] [place] [id number] 24 Feb, 2016 Lumbago with sciatica, left side M54.42 ; Lumbago with sciatica, right side M54.41 and Other chronic pain G89.29 [facility] [address] [id number] [address] [place] [address] Feb, [facility] [address] [id number] [address] [place] [phone] Feb, [facility] [address] [id number] [address] [place] [id number] 13 Feb, 2016 Bipolar I disorder with depr ession F31.9 ; PTSD (post-traumatic stress disorder) F43.10 and Mood disorder F39 [facility] [address] [id number] [address] [place] [address] Feb, [facility] [address] [id number] [address] [place] [phone] 11 Feb, 2016 Dental examination Z01.20 [facility] [address] [id number] [address] [place] [phone] 07 Feb, 2016 [facility] [address] [place] [id number] [address] [place] [id number] Feb, Acute bronchitis, unspecifie d organism J20.9 [facility] [address] [place] [id number] [address] [place] [id number] Jan, Mood disorder F39 ; Migraine without aura and without status migrainosus, not intractable G43.009 ; Irritable bowel syndrome, unspecified type K58.9 ; Diabetes E11.9 and Encounter for immunization Z23 [facility] [address] [address] Jan, [facility] [address] [address] Jan, [facility] [address] [address] Jan, [facility] [address] [address] Jan, [facility] [address] [address] Jan, [facility] [address] [address] Dec, Bipolar I disorder with depr ession F31.9 ; PTSD (post-traumatic stress disorder) F43.10 and Panic disorder with agoraphobia F40.01 [facility] [address] [address] Dec, Chronic obstructive pulmonar y disease, unspecified COPD type J44.9 ; Tremor R25.1 and Anxiety F41.9 [facility] [address] [address] Dec, [facility] [address] [address] Nov, Tremors of nervous system R2 5.1 and Cramping of feet R25.2 [place] [address] [place] [address] Nov, [facility] [address] [facility] [id number] [address] [place] [phone] Nov, [facility] [address] [facility] [id number] [address] [place] [address] Oct, Chronic obstructive pulmonar y disease, unspecified J44.9 [facility] [address] [facility] [id number] [address] [place] [address] Oct, [facility] [address] [facility] [id number] [address] [place] [address] Oct, Tremor R25.1 [facility] [address] [facility] [id number] [address] [place] [address] Oct, Bipolar I disorder with depr ession F31.9 ; Diabetes E11.9 ; PTSD (post-traumatic stress disorder) F43.10 and Panic disorder with agoraphobia F40.01 [facility] [address] [place] [id number] [address] [place] [address] Oct, Mood disorder F39 [facility] [address] [place] [id number] [address] [place] [address] September, [facility] [address] [facility] [id number] [address] [place] [address] September, Diabetes E11.9 ; Bipolar I d isorder with depression F31.9 ; PTSD (post-traumatic stress disorder) F43.10 and Panic disorder with agoraphobia F40.01 [facility] [address] [facility] [id number] [address] [place] [address] September, Mood disorder F39 ; Schizoaf fective disorder, unspecified type F25.9 ; Arthritis M19.90 ; Tremor R25.1 ; Acute non-recurrent frontal sinusitis J01.10 and Blood in stool K92.1 [facility] [address] [facility] [id number] [address] [place] [address] September, [place] [address] [id number] [address] [place] [id number] September, Chronic obstructive pulmonar y disease, unspecified J44.9 [facility] [address] [id number] [address] [place] [address] September, Diabetes E11.9 [facility] [address] [id number] [address] [place] [address] Aug, Other bipolar disorder F31.8 9 and Anxiety disorder, unspecified F41.9 [facility] [address] [id number] [address] [place] [address] Aug, [facility] [address] [id number] [address] [place] [address] Aug, Diabetes E11.9 [facility] [address] [facility] [id number] [address] [place] [phone] 18 Aug, 2015 [facility] [address] [id number] [address] [place] [phone] 14 Aug, 2015 Diabetes E11.9 ; Fatigue R53 .83 and Dizziness R42 [facility] [address] [id number] [address] [place] [address] Aug, Other bipolar disorder F31.8 9 [facility] [address] [id number] [address] [place] [phone] Aug, Generalized anxiety disorder F41.1 [facility] [address] [id number] [address] [place] [phone] 07 Aug, 2015 Other bipolar disorder F31.8 9 and Anxiety disorder, unspecified F41.9 [facility] [address] [id number] [address] [place] [phone] Aug, [facility] [address] [id number] [address] [place] [phone] Jul, [facility] [address] [id number] [address] [place] [id number] Jul, [facility] [address] [facility] [id number] [address] [place] [address] Jul, Bronchitis J40 [facility] [address] [facility] [id number] [address] [place] [address] Jul, Anxiety disorder F41.9 [facility] [address] [place] [id number] [address] [place] [address] Jul, Other bipolar disorder F31.8 9 and Anxiety disorder, unspecified F41.9 [facility] [address] [facility] [id number] [address] [place] [address] Jul, Other bipolar disorder F31.8 9 and Fibromyalgia M79.7 [facility] [address] [facility] [id number] [address] [place] [address] Jul, [facility] [address] [place] [id number] [address] [place] [address] Jul, [facility] [address] [facility] [id number] [address] [place] [address] Jul, [facility] [address] [facility] [id number] [address] [place] [address] Jul, Other bipolar disorder F31.8 9 and Anxiety disorder, unspecified F41.9 [facility] [address] [place] [id number] [address] [place] [address] Jun, GERD (gastroesophageal reflu x disease) K21.9 [facility] [address] [facility] [id number] [address] [place] [address] Jun, [facility] [address] [facility] [id number] [address] [place] [address] May, [facility] [address] [place] [id number] [address] [place] [address] May, Diabetes E11.9 ; Back pain M 54.9 ; GERD (gastroesophageal reflux disease) K21.9 ; Hypertension I10 and Peripheral neuropathy G62.9 [facility] [address] [place] [id number] [place] [address] Mar, [facility] [address] [id number] [address] [place] [id number] Mar, [facility] [address] [id number] [address] [place] [address] Mar, Acute sinusitis J01.90 and O titis media, left H66.92 [facility] [address] [id number] [address] [place] [id number] Feb, [facility] [address] [id number] [address] [place] [address] Feb, [facility] [address] [id number] [address] [place] [phone] Feb, [facility] [address] [id number] [address] [place] [address] Feb, [facility] [address] [id number] [address] [place] [address] Jan, [facility] [address] [id number] [address] [place] [address] Jan, Diabetes 250.00 and Back higinio n 724.5 [facility] [address] [id number] [address] [place] [address] Jan, [facility] [address] [id number] [address] [place] [address] Dec, Diabetes 250.00 ; Benign ess ential hypertension 401.1 and Allergic rhinitis 477.9 [facility] [address] [id number] [address] [place] [address] Dec, [facility] [address] [id number] [address] [place] [address] Dec, [facility] [address] [id number] [address] [place] [address] Dec, Psychosis 298.9 [facility] [address] [facility] [id number] [address] [place] [address] Dec, Medication side effect 995.2 0 and Generalized anxiety disorder 300.02 [facility] [address] [facility] [id number] [address] [place] [address] Dec, Acquired cognitive dysfuncti on 294.9 [facility] [address] [facility] [id number] [address] [place] [address] Dec, [facility] [address] [facility] [id number] [address] [place] [address] Dec, Unspecified myalgia and myos itis 729.1 and Generalized anxiety disorder 300.02 [facility] [address] [facility] [id number] [address] [place] [address] Nov, [facility] [address] [place] [id number] [address] [place] [id number] Nov, [facility] [address] [facility] [id number] [address] [place] [id number] Nov, [facility] [address] [facility] [id number] [address] [place] [id number] Nov, Upper respiratory infection 465.9 and Chronic airway obstruction, not elsewhere classified 496 [facility] [address] [facility] [id number] [address] [place] [address] Nov, Hyponatremia 276.1 [facility] [address] [facility] [id number] [address] [place] [address] Oct, [facility] [address] [facility] [id number] [address] [place] [address] Oct, [facility] [address] [facility] [id number] [address] [place] [phone] Oct, [facility] [address] [facility] [id number] [address] [place] [address] Oct, [facility] [address] [facility] [id number] [address] [place] [address] Oct, Hyponatremia 276.1 [facility] [address] [id number] [address] [place] [id number] Oct, [facility] [address] [id number] [address] [place] [address] Oct, [facility] [address] [facility] [id number] [address] [place] [address] Oct, Generalized anxiety disorder 300.02 [facility] [address] [id number] [address] [place] [address] Oct, Generalized anxiety disorder 300.02 and Diabetes 250.00 [facility] [address] [id number] [address] [place] [address] Aug, [facility] [address] [facility] [id number] [address] [place] [phone] Aug, [facility] [address] [id number] [address] [place] [address] Jul, [facility] [address] [id number] [address] [place] [address] Jul, [facility] [address] [id number] [address] [place] [phone] Jun, [facility] [address] [facility] [id number] [address] [place] [address] Jun, [facility] [address] [id number] [address] [place] [id number] Jun, [facility] [address] [id number] [address] [place] [address] Jun, [facility] [address] [id number] [address] [place] [address] Jun, [facility] [address] [id number] [address] [place] [address] May, [facility] [address] [id number] [address] [place] [id number] May, [facility] [address] [id number] [address] [place] [address], [place] [address] Apr, [facility] [address] [id number] [address] [place] [address], [place] [address] Apr, [facility] [address] [id number] [address] [place] [address], [place] [address] Apr, [facility] [address] [id number] [address] [place] [address], [place] [address] Apr, [facility] [address] [id number] [address] [place] [address], [place] [address] Apr, [facility] [address] [id number] [address] [place] [address], [place] [address] Apr, [facility] [address] [id number] [address] [place] [address], [place] [address] Apr, [facility] [address] [id number] [address] [place] [address], [place] [address] Apr, [facility] [address] [id number] [address] [place] [address], [place] [address] Feb, [facility] [address] [id number] [address] [place] [address], [place] [address] Feb, [facility] [address] [id number] [address] [place] [address], [place] [address] Jan, [facility] [address] [id number] [address] [place] [address], [place] [address] Jan, [facility] [address] [id number] [address] [place] [address], [place] [address] Dec, [facility] [address] [id number] [address] [place] [address], [place] [address] Dec, [facility] [address] [id number] [address] [place] [address], [place] [address] Dec, [facility] [place] [facility] [address] [id number] [address] [place] [address], [place] [address] Nov, [facility] [address] [id number] [address] [place] [address], [place] [address] Nov, [facility] [address] [id number] [address] [place] [address], [place] [address] Nov, [facility] [address] [id number] [address] [place] [address], [place] [address] Oct, [facility] [address] [id number] [address] [place] [address], [place] [address] Oct, [facility] [address] [id number] [address] [place] [address], [place] [address] Oct, [facility] [address] [id number] [address] [place] [address], [place] [address] September, [facility] [address] [id number] [address] [place] [address], [place] [address] September, [facility] [address] [id number] [address] [place] [address], [place] [address] September, [facility] [address] [id number] [address] [place] [address], [place] [address] Aug, [facility] [address] [id number] [address] [place] [address], [place] [address] Aug, [facility] [address] [id number] [address] [place] [address], [place] [address] Aug, [facility] [address] [id number] [address] [place] [address], [place] [address] 16 Aug, 2011 [facility] [address] [id number] [address] [place] [address], [place] [address] Jul, [facility] [address] [id number] [address] [place] [address], [place] [address] Jun, [facility] [address] [id number] [address] [place] [address], [place] [address] 14 Jun, 2011 [facility] [address] [id number] [address] [place] [address], [place] [address] 13 Jun, 2011 [facility] [address] [id number] [address] [place] [address], [place] [address] 07 Jun, 2011 [facility] [address] [id number] [address] [place] [address], [place] [address] 03 Jun, 2011 [facility] [address] [id number] [address] [place] [address], [place] [address] 13 May, 2011 [facility] [address] [id number] [address] [place] [address], [place] [address] May, [facility] [address] [id number] [address] [place] [address], [place] [address] May, [facility] [address] [id number] [address] [place] [address], [place] [address] May, [facility] [address] [id number] [address] [place] [address], [place] [address] Apr, [facility] [address] [id number] [address] [place] [address], [place] [address] Apr, [facility] [address] [id number] [address] [place] [address], [place] [address] Apr, [facility] [address] [id number] [address] [place] [address], [place] [address] Mar, [facility] [address] [id number] [address] [place] [phone] Mar, [facility] [address] [id number] [address] [place] [address], [place] [address] Mar, [facility] [address] [id number] [address] [place] [address], [place] [address] 13 Feb, 2011 [facility] [address] [id number] [address] [place] [address], [place] [address] 13 Feb, 2011 [facility] [address] [id number] [address] [place] [phone] 13 Feb, 2011 [facility] [address] [id number] [address] [place] [phone] 11 Nov, 2010 [facility] [address] [id number] [address] [place] [id number] 16 Sep, 2010 [facility] [address] [id number] [address] [place] [phone] Aug, [facility] [address] [id number] [address] [place] [phone] Jul, [facility] [address] [id number] [address] [place] [id number] May, [facility] [address] [id number] [address] [place] [id number] Apr, [facility] [address] [id number] [address] [place] [address] Apr, [facility] [address] [id number] [address] [place] [id number] Apr, [facility] [address] [id number] [address] [place] [id number] Apr, [facility] [address] [id number] [address] [place] [id number] Apr, IMMUNIZATIONS No Known Immunizations SOCIAL HISTORY Never Assessed REASON FOR VISIT Controlled Med Refill 11/05. PLAN OF CARE VITAL SIGNS MEDICATIONS Medication Instructions Dosage Frequency Start Date End Date Duration S samantha Roberts 7.5-325 MG Orally 3 times a day 1 tablet as needed 8h 28 Oct, 2017 28 days Active RESULTS No Results PROCEDURES [...]
--- OUTSIDE RECORDS SUMMARY | 2019-07-17 11:01 | XMS REPORT ---
Author Author Sujey GANDHI Organization [facility] Address [address] [place] [address] Care Team Providers Care [employer] Handicapper Name Role Phone WHIT GANDHI Unavailable PROBLEMS Type Condition ICD9-CM Code ALV18-KQ Code Onset Dates Condition S tatus SNOMED Code Problem Back pain M54.9 Active 793777207 Problem Diabetes E11.9 Active 38189693 Problem GERD (gastroesophageal reflux disease) K21.9 Active 959986300 Problem Hypertension I10 Active 1839202 3 Problem Anxiety disorder, unspecified F41.9 Active 060169762 Problem Other bipolar disorder F31.89 Active 89239053 Problem Fibromyalgia M79.7 Active 1186682 7 Problem Panic disorder with agoraphobia F40.01 Active 97113856 Problem Panlobular emphysema J43.1 Active 6383537 Problem Chronic obstructive pulmonary disease, unspecified J44.9 Active 80710316 Problem Akathisia G25.71 Active 601415747 Problem Lumbago with sciatica, left side M54.42 Active 151996296 Problem Migraine without aura and without status migrain osus, not intractable G43.009 Active 538990909 Problem Fibrocystic disease of right breast N60.11 Active 47211659 Problem Fibrocystic disease of left breast N60.12 Active 85123448 Problem Slow transit constipation K59.01 Acti ve 89748247 Problem Essential tremor G25.0 Active 609 379040 Problem Bipolar 1 disorder, depressed, moderate F31.32 Active 92319796 Problem Other chronic pain G89.29 Active 8 6759924 Problem Lumbago with sciatica, right side M54.41 Active 803485634 Problem Irritable bowel syndrome with constipation K58.1 Active 472256488 Problem Arthritis M19.90 Active 0768281 Problem Schizoaffective disorder, bipolar type F25.0 Active 44189199 Problem Irritable bowel syndrome with both constipation and diarrh ea K58.2 Active 24964715 Problem Attention deficit hyperactiv ity disorder (ADHD), predominantly inattentive type F90.0 Active 32591081 Problem Bipolar I disorder with depression F31.9 Active 67689941 Problem Chronic post-traumatic stress disorder (PTSD) F43. 12 Active 294743607 Problem Bipolar affective disorder, remission status unspecified F31.9 Active 21302077 Problem Mild persistent asthma without complication J45.30 Active 993705617 Problem Moderate persistent asthma without complication J4 5.40 Active 267484967 Problem Acute non-recurrent maxillary sinusitis J01.00 Active 10293047 Problem Bipolar 1 disorder, depressed, partial remission F 31.75 Active 97194406 ALLERGIES No Information ENCOUNTERS Encounter Location Date Diagnosis [place] [id number] [id number] [address] [place] [id number] Mar, [place] [address] [id number] [address] [place] [phone] Dec, [place] [address] [id number] [address] [place] [phone] Dec, [place] [address] [id number] [address] [place] [phone] Dec, Cerebrovascular accident (CV A) due to occlusion of right cerebellar artery I63.541 [place] [address] [id number] [address] [place] [phone] Dec, [facility] [address] [id number] [address] [place] [phone] Dec, [place] [address] [id number] [address] [place] [phone] Nov, Bipolar 1 disorder, depresse d, partial remission F31.75 and Panic disorder with agoraphobia F40.01 [facility] [address] [id number] [address] [place] [phone] Nov, Panlobular emphysema J43.1 [facility] [address] [id number] [address] [place] [id number] Nov, Cerebrovascular accident (CV A) due to occlusion of right cerebellar artery I63.541 and Acute non-recurrent maxillary sinusitis J01.00 [facility] [address] [id number] [address] [place] [phone] Nov, Panlobular emphysema J43.1 [facility] [address] [id number] [address] [place] [phone] Nov, [facility] [address] [id number] [address] [place] [phone] Nov, [facility] [address] [id number] [address] [place] [phone] Nov, [facility] [address] [id number] [address] [place] [phone] Nov, [facility] [address] [id number] [address] [place] [phone] Nov, [facility] [address] [id number] [address] [place] [phone] Nov, [facility] [address] [id number] [address] [place] [phone] Nov, [facility] [address] [id number] [address] [place] [phone] Nov, Mild persistent asthma witho ut complication J45.30 and Irritable bowel syndrome with both constipation and diarrhea K58.2 [facility] [address] [id number] [address] [place] [phone] Nov, [facility] [address] [id number] [address] [place] [phone] Oct, [facility] [address] [id number] [address] [place] [phone] Oct, [facility] [address] [id number] [address] [place] [phone] Oct, Type 2 diabetes mellitus wit h diabetic neuropathy, unspecified whether usp insulin use E11.40 ; Diabetes E11.9 ; Slow transit constipation K59.01 ; Edema of both legs R60.0 and Dysfunction of right eustachian tube H69.81 [facility] [address] [id number] [address] [place] [phone] Oct, Frequent headaches R51 [facility] [address] [id number] [address] [place] [phone] Oct, [facility] [address] [id number] [address] [place] [phone] Oct, [facility] [address] [id number] [address] [place] [phone] Oct, [facility] [address] [id number] [address] [place] [phone] Oct, [facility] [address] [id number] [address] [place] [phone] Oct, [facility] [address] [id number] [address] [place] [phone] Oct, [facility] [address] [id number] [address] [place] [phone] Oct, [facility] [address] [id number] [address] [place] [phone] Oct, [facility] [address] [id number] [address] [place] [phone] September, Frequent headaches R51 [facility] [address] [id number] [address] [place] [phone] September, Bilateral otitis media with effusion H65.93 ; Dizziness R42 and Essential tremor G25.0 [facility] [address] [id number] [address] [place] [phone] September, Chronic obstructive pulmonar y disease, unspecified COPD type J44.9 [facility] [address] [id number] [address] [place] [phone] September, Chronic obstructive pulmonar y disease, unspecified COPD type J44.9 [facility] [address] [id number] [address] [place] [phone] September, Migraine without aura and wi thout status migrainosus, not intractable G43.009 [facility] [address] [id number] [address] [place] [phone] September, [facility] [address] [facility] [id number] [address] [place] [phone] September, [facility] [address] [facility] [id number] [address] [place] [phone] September, [facility] [address] [facility] [id number] [address] [place] [phone] September, Frequent headaches R51 [facility] [address] [facility] [id number] [address] [place] [phone] Aug, [facility] [address] [place] [id number] [address] [place] [phone] Aug, Breast mass, right N63.10 [facility] [address] [facility] [id number] [address] [place] [phone] Aug, Breast lump N63.0 [facility] [address] [facility] [id number] [address] [place] [id number] Aug, [facility] [address] [facility] [id number] [address] [place] [phone] Aug, Bipolar affective disorder, remission status unspecified F31.9 and Diabetes E11.9 [facility] [address] [facility] [id number] [address] [place] [phone] Aug, Diabetes E11.9 ; Schizoaffec tive disorder, bipolar type F25.0 ; Pharyngitis due to other organism J02.8 ; Panlobular emphysema J43.1 and Irritable bowel syndrome with both constipation and diarrhea K58.2 [facility] [address] [facility] [id number] [address] [place] [phone] Aug, Abnormal mammogram R92.8 [facility] [address] [facility] [id number] [address] [place] [phone] Aug, [facility] [address] [facility] [id number] [address] [place] [phone] Aug, Bipolar 1 disorder, depresse d, moderate F31.32 ; Panic disorder with agoraphobia F40.01 and Chronic post-traumatic stress disorder (PTSD) F43.12 [facility] [address] [facility] [id number] [address] [place] [phone] Aug, [facility] [address] [facility] [id number] [address] [place] [phone] Aug, [place] [address] [place] [id number] [place] [phone] Aug, [place] [address] [place] [id number] [address] [place] [phone] Jul, [place] [address] [place] [id number] [address] [place] [phone] Jul, Mild persistent asthma witho ut complication J45.30 [place] [address] [place] [id number] [address] [place] [phone] Jul, Mild persistent asthma witho ut complication J45.30 [place] [address] [place] [id number] [address] [place] [phone] 15 Jul, 2017 Bipolar affective disorder, remission status unspecified F31.9 ; Diabetes E11.9 and Irritable bowel syndrome with constipation K58.1 [facility] [address] [facility] [id number] [address] [place] [phone] 13 Jul, 2017 [place] [address] [place] [id number] [address] [place] [phone] 09 Jul, 2017 [place] [address] [place] [id number] [address] [place] [id number] 08 Jul, 2017 Frequent headaches R51 [place] [address] [place] [id number] [address] [place] [phone] Jul, [facility] [address] [facility] [id number] [address] [place] [phone] Jul, [facility] [address] [facility] [id number] [address] [place] [phone] Jul, [facility] [address] [facility] [id number] [address] [place] [phone] Jul, Frequent headaches R51 ; Fib rocystic disease of left breast N60.12 ; Fibrocystic disease of right breast N60.11 and Diabetes E11.9 [facility] [address] [facility] [id number] [address] [place] [phone] Jul, [facility] [address] [facility] [id number] [address] [place] [phone] Jul, [place] [address] [facility] [id number] [address] [place] [phone] 21 Jun, 2017 Exudative tonsillitis J03.90 [place] [address] [facility] [id number] [address] [place] [id number] 20 Jun, 2017 [place] [address] [facility] [id number] [place] [phone] 19 Jun, 2017 [place] [address] [facility] [id number] [place] [phone] 15 Jun, 2017 Mild persistent asthma witho ut complication J45.30 ; Chronic obstructive pulmonary disease, unspecified COPD type J44.9 and Exudative tonsillitis J03.90 [place] [address] [facility] [id number] [address] [place] [id number] 13 Jun, 2017 Encounter for immunization Z 23 [place] [address] [facility] [id number] [address] [place] [phone] 12 Jun, 2017 [place] [address] [place] [id number] [address] [place] [phone] 12 Jun, 2017 [place] [address] [phone] 09 Jun, 2017 [facility] [address] [facility] [id number] [address] [place] [phone] 06 Jun, 2017 Tonsillitis J03.90 [facility] [address] [facility] [id number] [address] [place] [phone] 05 Jun, 2017 [facility] [address] [facility] [id number] [address] [place] [phone] 03 Jun, 2017 Acute non-recurrent maxillar y sinusitis J01.00 [facility] [address] [facility] [id number] [address] [place] [phone] 02 Jun, 2017 [facility] [address] [facility] [id number] [address] [place] [id number] May, [facility] [address] [place] [id number] [address] [place] [phone] May, [facility] [address] [place] [id number] [address] [place] [id number] May, GERD (gastroesophageal reflu x disease) K21.9 [facility] [address] [place] [id number] [place] [phone] May, Migraine without aura and wi thout status migrainosus, not intractable G43.009 [facility] [address] [facility] [id number] [address] [place] [id number] May, [facility] [address] [place] [id number] [address] [place] [phone] May, [facility] [address] [place] [id number] [address] [place] [phone] May, Panlobular emphysema J43.1 a nd Acute non-recurrent maxillary sinusitis J01.00 [facility] [address] [facility] [id number] [address] [place] [id number] 04 May, 2017 Bipolar 1 disorder, depresse d, moderate F31.32 ; Panic disorder with agoraphobia F40.01 and Akathisia G25.71 [facility] [address] [id number] [address] [place] [phone] 27 Apr, 2017 [facility] [address] [id number] [address] [place] [phone] 14 Apr, 2017 [facility] [address] [facility] [id number] [address] [place] [phone] Apr, Acute non-recurrent maxillar y sinusitis J01.00 [facility] [address] [id number] [address] [place] [phone] 07 Apr, 2017 Panlobular emphysema J43.1 [facility] [address] [id number] [address] [place] [phone] 04 Apr, 2017 [facility] [address] [facility] [id number] [address] [place] [phone] 04 Apr, 2017 Exudative tonsillitis J03.90 and Sore throat J02.9 [facility] [address] [id number] [address] [place] [phone] 17 Mar, 2017 [facility] [address] [facility] [id number] [address] [place] [phone] 15 Mar, 2017 Acute non-recurrent maxillar y sinusitis J01.00 [facility] [address] [facility] [id number] [address] [place] [phone] 13 Mar, 2017 [facility] [address] [facility] [id number] [address] [place] [phone] 09 Mar, 2017 Panlobular emphysema J43.1 a nd Diabetes E11.9 [facility] [address] [id number] [address] [place] [id number] 06 Mar, 2017 [facility] [address] [facility] [id number] [address] [place] [phone] 24 Feb, 2017 Wheezing R06.2 and Acute rec urrent pansinusitis J01.41 [facility] [address] [id number] [address] [place] [phone] Feb, [facility] [address] [id number] [address] [place] [phone] Feb, Acute non-recurrent maxillar y sinusitis J01.00 [facility] [address] [id number] [address] [place] [id number] 16 Feb, 2017 Chronic obstructive pulmonar y disease, unspecified J44.9 [place] [address] [id number] [address] [place] [phone] Feb, Hypoxemia R09.02 and Chronic obstructive pulmonary disease, unspecified J44.9 [place] [address] [facility] [id number] [address] [place] [id number] 28 Jan, 2017 Bipolar 1 disorder, depresse d, moderate F31.32 ; Panic disorder with agoraphobia F40.01 ; Chronic post-traumatic stress disorder (PTSD) F43.12 ; Diabetes E11.9 and Moderate persistent asthma without complication J45.40 [place] [address] [facility] [id number] [address] [place] [phone] 22 Jan, 2017 [place] [address] [facility] [id number] [address] [place] [phone] 19 Jan, 2017 Acute non-recurrent maxillar y sinusitis J01.00 [place] [address] [facility] [id number] [address] [place] [phone] 18 Jan, 2017 [place] [address] [facility] [id number] [address] [place] [phone] 18 Jan, 2017 [place] [address] [facility] [id number] [address] [place] [phone] 12 Jan, 2017 Moderate persistent asthma w [facility] complication J45.40 and Hypoxemia R09.02 [place] [address] [facility] [id number] [address] [place] [phone] 11 Jan, 2017 Moderate persistent asthma w [facility] complication J45.40 and Hypoxemia R09.02 [place] [address] [facility] [id number] [address] [place] [id number] Jan, [facility] [address] [id number] [address] [place] [id number] Dec, Acute non-recurrent maxillar y sinusitis J01.00 [facility] [address] [id number] [address] [place] [phone] Dec, Chronic obstructive pulmonar y disease, unspecified J44.9 [facility] [address] [id number] [address] [place] [phone] Dec, [facility] [address] [id number] [address] [place] [phone] Dec, Mild persistent asthma witho ut complication J45.30 and Other chronic pain G89.29 [facility] [address] [id number] [address] [place] [phone] Nov, [facility] [address] [id number] [address] [place] [phone] Nov, Acute non-recurrent maxillar y sinusitis J01.00 [facility] [address] [id number] [address] [place] [phone] Nov, [facility] [address] [id number] [address] [place] [phone] Nov, [facility] [address] [id number] [address] [place] [phone] Oct, [facility] [address] [facility] [id number] [address] [place] [phone] Oct, Bipolar 1 disorder, depresse d, partial remission F31.75 ; Panic disorder with agoraphobia F40.01 and Chronic post-traumatic stress disorder (PTSD) F43.12 [facility] [address] [id number] [address] [place] [phone] Oct, Acute non-recurrent maxillar y sinusitis J01.00 [facility] [address] [id number] [address] [place] [phone] Oct, [facility] [address] [facility] [id number] [address] [place] [phone] Oct, Diabetes E11.9 [facility] [address] [id number] [address] [place] [phone] September, Diabetes E11.9 [facility] [address] [facility] [id number] [address] [place] [phone] September, Diabetes E11.9 and Sinus tac hycardia R00.0 [facility] [address] [id number] [address] [place] [phone] September, [facility] [address] [facility] [id number] [address] [place] [phone] September, [facility] [address] [facility] [id number] [address] [place] [phone] Aug, Diabetes E11.9 and Lumbago w ith sciatica, right side M54.41 [facility] [address] [facility] [id number] [address] [place] [id number] Aug, [facility] [address] [facility] [id number] [address] [place] [phone] Jul, Bipolar 1 disorder, depresse d, moderate F31.32 ; Panic disorder with agoraphobia F40.01 and Chronic post-traumatic stress disorder (PTSD) F43.12 [facility] [address] [facility] [id number] [address] [place] [id number] Jul, Sore throat J02.9 [facility] [address] [facility] [id number] [address] [place] [phone] Jul, [facility] [address] [facility] [id number] [address] [place] [phone] Jul, [facility] [address] [facility] [id number] [address] [place] [phone] Jul, [facility] [address] [facility] [id number] [address] [place] [phone] Jul, [facility] [address] [id number] [address] [place] [phone] Jul, Sore throat J02.9 and Pharyn gitis, unspecified etiology J02.9 [facility] [address] [id number] [address] [place] [phone] Jun, [facility] [address] [id number] [address] [place] [phone] Jun, Diabetes E11.9 [facility] [address] [id number] [address] [place] [phone] Jun, [facility] [address] [facility] [id number] [address] [place] [phone] Jun, [facility] [address] [facility] [id number] [address] [place] [phone] Jun, [facility] [address] [facility] [id number] [address] [place] [phone] Jun, [facility] [address] [facility] [id number] [address] [place] [phone] Jun, [facility] [address] [facility] [id number] [address] [place] [phone] Jun, [facility] [address] [facility] [id number] [address] [place] [phone] Jun, [facility] [address] [facility] [id number] [address] [place] [phone] Jun, [facility] [address] [facility] [id number] [address] [place] [phone] May, Diabetes E11.9 ; Other chron ic pain G89.29 ; Acute recurrent maxillary sinusitis J01.01 ; Bipolar I disorder with depression F31.9 and Anxiety disorder, unspecified F41.9 [facility] [address] [facility] [id number] [address] [place] [phone] May, [place] [id number] [facility] [id number] [address] [place] [phone] May, Diabetes E11.9 ; Bipolar I d isorder with depression F31.9 ; Anxiety disorder, unspecified F41.9 ; Other chronic pain G89.29 and Acute recurrent maxillary sinusitis J01.01 [place] [address] [address] [facility] [id number] [address] [place] [phone] May, [place] [address] [address] [facility] [id number] [address] [place] [phone] May, Attention deficit hyperactiv ity disorder (ADHD), predominantly inattentive type F90.0 [place] [address] [address] [place] [id number] [address] [place] [phone] May, [place] [address] [address] [place] [id number] [address] [place] [phone] Apr, Attention deficit hyperactiv ity disorder (ADHD), predominantly inattentive type F90.0 and Non-seasonal allergic rhinitis due to other allergic trigger J30.89 [place] [address] [address] [place] [id number] [address] [place] [phone] Apr, Bipolar 1 disorder, depresse d, moderate F31.32 ; Panic disorder with agoraphobia F40.01 and Chronic post-traumatic stress disorder (PTSD) F43.12 [place] [address] [address] [facility] [id number] [address] [place] [phone] Apr, Dental examination Z01.20 [place] [address] [id number] [address] [place] [phone] Mar, [place] [address] [address] [place] [id number] [address] [place] [phone] Mar, [place] [address] [address] [facility] [id number] [address] [place] [phone] Mar, Bipolar I disorder with depr ession F31.9 and Anxiety disorder, unspecified F41.9 [place] [address] [address] [facility] [id number] [address] [place] [phone] 08 Mar, 2016 Panic disorder with agorapho syd F40.01 ; Bipolar 1 disorder, depressed, moderate F31.32 and Chronic post-traumatic stress disorder (PTSD) F43.12 [place] [address] [address] [facility] [id number] [address] [place] [phone] Mar, [place] [address] [address] [facility] [id number] [address] [place] [phone] Mar, Dental caries K02.9 [place] [address] [address] [place] [id number] [address] [place] [phone] Feb, Lumbago with sciatica, left side M54.42 ; Lumbago with sciatica, right side M54.41 and Other chronic pain G89.29 [place] [address] [address] [place] [id number] [address] [place] [phone] 17 Feb, 2016 [place] [address] [address] [place] [id number] [address] [place] [phone] 14 Feb, 2016 [place] [address] [address] [place] [id number] [place] [phone] 13 Feb, 2016 Bipolar I disorder with depr ession F31.9 ; PTSD (post-traumatic stress disorder) F43.10 and Mood disorder F39 [place] [address] [address] [place] [id number] [address] [place] [phone] 13 Feb, 2016 [place] [address] [address] [place] [id number] [address] [place] [phone] 11 Feb, 2016 Dental examination Z01.20 [facility] [address] [facility] [id number] [address] [place] [phone] 07 Feb, 2016 [facility] [address] [place] [id number] [address] [place] [phone] 03 Feb, 2016 Acute bronchitis, unspecifie d organism J20.9 [facility] [address] [place] [id number] [address] [place] [phone] Jan, Mood disorder F39 ; Migraine without aura and without status migrainosus, not intractable G43.009 ; Irritable bowel syndrome, unspecified type K58.9 ; Diabetes E11.9 and Encounter for immunization Z23 [facility] [address] [facility] [id number] [address] [place] [phone] Jan, [facility] [address] [facility] [id number] [address] [place] [phone] Jan, [facility] [address] [place] [id number] [address] [place] [phone] Jan, [facility] [address] [place] [id number] [address] [place] [phone] Jan, [facility] [address] [place] [id number] [place] [phone] Jan, [facility] [address] [place] [id number] [address] [place] [phone] Dec, Bipolar I disorder with depr ession F31.9 ; PTSD (post-traumatic stress disorder) F43.10 and Panic disorder with agoraphobia F40.01 [facility] [address] [place] [id number] [place] [phone] Dec, Chronic obstructive pulmonar y disease, unspecified COPD type J44.9 ; Tremor R25.1 and Anxiety F41.9 [facility] [address] [place] [id number] [address] [place] [phone] Dec, [facility] [address] [place] [id number] [address] [place] [phone] Nov, Tremors of nervous system R2 5.1 and Cramping of feet R25.2 [facility] [address] [place] [id number] [address] [place] [phone] Nov, [facility] [address] [place] [id number] [address] [place] [phone] Nov, [facility] [address] [place] [id number] [address] [place] [phone] Oct, Chronic obstructive pulmonar y disease, unspecified J44.9 [place] [address] [address] [place] [id number] [address] [place] [phone] Oct, [place] [address] [place] [id number] [address] [place] [id number] Oct, Tremor R25.1 [place] [address] [phone] Oct, Bipolar I disorder with depr ession F31.9 ; Diabetes E11.9 ; PTSD (post-traumatic stress disorder) F43.10 and Panic disorder with agoraphobia F40.01 [place] [address] [phone] Oct, Mood disorder F39 [place] [address] [phone] September, [place] [address] [phone] September, Diabetes E11.9 ; Bipolar I d isorder with depression F31.9 ; PTSD (post-traumatic stress disorder) F43.10 and Panic disorder with agoraphobia F40.01 [place] [address] [address] September, Mood disorder F39 ; Schizoaf fective disorder, unspecified type F25.9 ; Arthritis M19.90 ; Tremor R25.1 ; Acute non-recurrent frontal sinusitis J01.10 and Blood in stool K92.1 [place] [address] [phone] September, [place] [address] [id number] September, Chronic obstructive pulmonar y disease, unspecified J44.9 [place] [address] [address] September, Diabetes E11.9 [facility] [address] [id number] [address] [place] [phone] Aug, Other bipolar disorder F31.8 9 and Anxiety disorder, unspecified F41.9 [facility] [address] [id number] [address] [place] [phone] Aug, [facility] [address] [facility] [id number] [address] [place] [phone] Aug, Diabetes E11.9 [facility] [address] [id number] [address] [place] [phone] Aug, [facility] [address] [facility] [id number] [address] [place] [phone] 14 Aug, 2015 Diabetes E11.9 ; Fatigue R53 .83 and Dizziness R42 [facility] [address] [facility] [id number] [address] [place] [phone] Aug, Other bipolar disorder F31.8 9 [facility] [address] [id number] [address] [place] [phone] Aug, Generalized anxiety disorder F41.1 [facility] [address] [facility] [id number] [address] [place] [phone] Aug, Other bipolar disorder F31.8 9 and Anxiety disorder, unspecified F41.9 [facility] [address] [facility] [id number] [address] [place] [phone] Aug, [facility] [address] [id number] [address] [place] [phone] Jul, [facility] [address] [id number] [address] [place] [phone] Jul, [facility] [address] [facility] [id number] [address] [place] [id number] Jul, Bronchitis J40 [facility] [address] [facility] [id number] [address] [place] [phone] Jul, Anxiety disorder F41.9 [facility] [address] [id number] [address] [place] [phone] Jul, Other bipolar disorder F31.8 9 and Anxiety disorder, unspecified F41.9 [facility] [address] [id number] [address] [place] [phone] Jul, Other bipolar disorder F31.8 9 and Fibromyalgia M79.7 [facility] [address] [id number] [address] [place] [phone] Jul, [facility] [address] [id number] [address] [place] [phone] Jul, [facility] [address] [id number] [address] [place] [phone] Jul, [facility] [address] [facility] [id number] [address] [place] [phone] Jul, Other bipolar disorder F31.8 9 and Anxiety disorder, unspecified F41.9 [facility] [address] [id number] [address] [place] [phone] Jun, GERD (gastroesophageal reflu x disease) K21.9 [facility] [address] [facility] [id number] [address] [place] [phone] Jun, [facility] [address] [facility] [id number] [address] [place] [phone] May, [facility] [address] [facility] [id number] [address] [place] [phone] May, Diabetes E11.9 ; Back pain M 54.9 ; GERD (gastroesophageal reflux disease) K21.9 ; Hypertension I10 and Peripheral neuropathy G62.9 [facility] [address] [id number] [address] [place] [phone] Mar, [facility] [address] [facility] [id number] [address] [place] [phone] Mar, [facility] [address] [facility] [id number] [address] [place] [phone] Mar, Acute sinusitis J01.90 and O titis media, left H66.92 [facility] [address] [facility] [id number] [address] [place] [phone] Feb, [facility] [address] [facility] [id number] [address] [place] [phone] Feb, [facility] [address] [facility] [id number] [address] [place] [phone] Feb, [facility] [address] [facility] [id number] [address] [place] [phone] Feb, [facility] [address] [place] [id number] [address] [place] [phone] Jan, [facility] [address] [place] [id number] [place] [address] Jan, Diabetes 250.00 and Back higinio n 724.5 [facility] [address] [facility] [id number] [address] [place] [phone] Jan, [facility] [address] [place] [id number] [place] [address] Dec, Diabetes 250.00 ; Benign ess ential hypertension 401.1 and Allergic rhinitis 477.9 [facility] [address] [place] [id number] [address] [place] [phone] Dec, [facility] [address] [place] [id number] [address] [place] [phone] Dec, [facility] [address] [place] [id number] [address] [place] [phone] Dec, Psychosis 298.9 [facility] [address] [place] [id number] [place] [address] Dec, Medication side effect 995.2 0 and Generalized anxiety disorder 300.02 [facility] [address] [place] [id number] [address] [place] [id number] Dec, Acquired cognitive dysfuncti on 294.9 [facility] [address] [id number] [address] [place] [phone] Dec, [facility] [address] [facility] [id number] [address] [place] [phone] Dec, Unspecified myalgia and myos itis 729.1 and Generalized anxiety disorder 300.02 [facility] [address] [id number] [address] [place] [phone] Nov, [facility] [address] [id number] [address] [place] [phone] Nov, [facility] [address] [id number] [address] [place] [phone] Nov, [facility] [address] [facility] [id number] [address] [place] [phone] Nov, Upper respiratory infection 465.9 and Chronic airway obstruction, not elsewhere classified 496 [facility] [address] [id number] [address] [place] [phone] Nov, Hyponatremia 276.1 [facility] [address] [facility] [id number] [address] [place] [phone] Oct, [facility] [address] [facility] [id number] [address] [place] [phone] Oct, [facility] [address] [facility] [id number] [address] [place] [phone] Oct, [facility] [address] [facility] [id number] [address] [place] [phone] Oct, [facility] [address] [facility] [id number] [address] [place] [phone] Oct, Hyponatremia 276.1 [facility] [address] [facility] [id number] [address] [place] [phone] Oct, [facility] [address] [facility] [id number] [address] [place] [phone] Oct, [facility] [address] [id number] [address] [place] [phone] Oct, Generalized anxiety disorder 300.02 [facility] [address] [id number] [address] [place] [phone] Oct, Generalized anxiety disorder 300.02 and Diabetes 250.00 [facility] [address] [id number] [address] [place] [phone] Aug, [facility] [address] [id number] [address] [place] [phone] Aug, [facility] [address] [id number] [address] [place] [phone] Jul, [facility] [address] [id number] [address] [place] [phone] Jul, [facility] [address] [id number] [address] [place] [phone] Jun, [facility] [address] [id number] [address] [place] [phone] Jun, [facility] [address] [id number] [address] [place] [phone] Jun, [facility] [address] [id number] [address] [place] [phone] Jun, [facility] [address] [id number] [address] [place] [phone] Jun, [facility] [address] [id number] [address] [place] [phone] May, [facility] [address] [id number] [address] [place] [phone] May, [facility] [address] [id number] [address] [place] [phone] Apr, [facility] [address] [id number] [address] [place] [phone] Apr, [facility] [address] [id number] [address] [place] [address], [place] [address] Apr, [facility] [address] [id number] [address] [place] [address], [place] [address] Apr, [facility] [address] [id number] [address] [place] [address], [place] [address] Apr, [facility] [address] [id number] [address] [address], [place] [address] Apr, [facility] [address] [id number] [address] [place] [address], [place] [address] Apr, [facility] [address] [id number] [address] [place] [address], [place] [address] Apr, [facility] [address] [id number] [address] [address], [place] [address] Feb, [facility] [address] [id number] [address] [place] [address], [place] [address] Feb, [facility] [address] [id number] [address] [place] [address], [place] [address] Jan, [facility] [address] [id number] [address] [place] [address], [place] [address] Jan, [facility] [address] [id number] [address] [address], [place] [address] Dec, [facility] [address] [id number] [address] [place] [phone] Dec, [facility] [address] [id number] [address] [place] [address], [place] [address] Dec, [facility] [address] [id number] [address] [place] [address], [place] [address] Nov, [facility] [address] [id number] [address] [place] [address], [place] [address] Nov, [facility] [address] [id number] [address] [place] [address], [place] [address] Nov, [facility] [address] [id number] [address] [address], [place] [address] Oct, [facility] [address] [id number] [address] [address], [place] [address] Oct, [facility] [address] [id number] [address] [place] [address], [place] [address] Oct, [facility] [address] [id number] [address] [place] [address], [place] [address] September, [facility] [address] [id number] [address] [place] [address], [place] [address] September, [facility] [address] [id number] [address] [place] [address], [place] [address] September, [facility] [address] [id number] [address] [place] [address], [place] [address] Aug, [facility] [address] [id number] [address] [place] [address], [place] [address] Aug, [facility] [address] [id number] [address] [place] [address], [place] [address] Aug, [facility] [address] [id number] [address] [address], [place] [address] 16 Aug, 2011 [facility] [address] [id number] [address] [place] [address], [place] [address] Jul, [facility] [address] [id number] [address] [place] [address], [place] [address] Jun, [facility] [address] [id number] [address] [place] [address], [place] [address] 14 Jun, 2011 [facility] [address] [id number] [address] [place] [address], [place] [address] 13 Jun, 2011 [facility] [address] [id number] [address] [place] [address], [place] [address] 07 Jun, 2011 [facility] [address] [id number] [address] [place] [address], [place] [address] Jun, [facility] [address] [id number] [address] [place] [address], [place] [address] May, [facility] [address] [id number] [address] [place] [address], [place] [address] May, [facility] [address] [id number] [address] [place] [address], [place] [address] May, [facility] [address] [id number] [address] [place] [address], [place] [address] May, [facility] [address] [id number] [address] [place] [address], [place] [address] Apr, [facility] [address] [id number] [address] [place] [address], [place] [address] Apr, [facility] [address] [id number] [address] [place] [address], [place] [address] Apr, [facility] [address] [id number] [address] [place] [address], [place] [id number] Mar, [facility] [address] [id number] [address] [place] [id number] Mar, [facility] [address] [id number] [address] [place] [id number] Mar, [facility] [address] [id number] [address] [place] [phone] Feb, [facility] [address] [id number] [place] [address], [place] [id number] Feb, [facility] [address] [id number] [address] [place] [phone] Feb, [facility] [address] [id number] [address] [place] [phone] Nov, [facility] [address] [id number] [address] [place] [id number] 16 Sep, 2010 [facility] [address] [id number] [address] [place] [phone] Aug, [facility] [address] [id number] [address] [place] [id number] Jul, [facility] [address] [id number] [address] [place] [phone] May, [facility] [address] [id number] [address] [place] [phone] Apr, [facility] [address] [facility] [id number] [address] [place] [id number] Apr, [facility] [address] [facility] [id number] [address] [place] [id number] Apr, [facility] [address] [facility] [id number] [address] [place] [id number] Apr, [facility] [address] [facility] [id number] [address] [place] [id number] Apr, IMMUNIZATIONS No Known Immunizations SOCIAL HISTORY [...]
--- OUTSIDE RECORDS SUMMARY | 2019-07-17 11:01 | XMS REPORT ---
Author Author Sujey GANDHI Organization [facility] Address [address] [place] [address] Care Team Providers Care Conduit Mechanic Name Role Phone WHIT GANDHI Unavailable PROBLEMS Type Condition ICD9-CM Code ZOK28-FV Code Onset Dates Condition S tatus SNOMED Code Problem Back pain M54.9 Active 841432534 Problem Diabetes E11.9 Active 72466911 Problem GERD (gastroesophageal reflux disease) K21.9 Active 838794142 Problem Hypertension I10 Active 2274151 3 Problem Anxiety disorder, unspecified F41.9 Active 215219410 Problem Other bipolar disorder F31.89 Active 50889756 Problem Fibromyalgia M79.7 Active 9844641 7 Problem Panic disorder with agoraphobia F40.01 Active 12434404 Problem Panlobular emphysema J43.1 Active 2818552 Problem Chronic obstructive pulmonary disease, unspecified J44.9 Active 66745683 Problem Akathisia G25.71 Active 114196941 Problem Lumbago with sciatica, left side M54.42 Active 796426089 Problem Migraine without aura and without status migrain osus, not intractable G43.009 Active 794724131 Problem Fibrocystic disease of right breast N60.11 Active 70164845 Problem Fibrocystic disease of left breast N60.12 Active 41316543 Problem Slow transit constipation K59.01 Acti ve 55097905 Problem Essential tremor G25.0 Active 609 299824 Problem Bipolar 1 disorder, depressed, moderate F31.32 Active 08481044 Problem Other chronic pain G89.29 Active 8 1154070 Problem Lumbago with sciatica, right side M54.41 Active 134907453 Problem Irritable bowel syndrome with constipation K58.1 Active 935700595 Problem Arthritis M19.90 Active 9590513 Problem Schizoaffective disorder, bipolar type F25.0 Active 69132782 Problem Irritable bowel syndrome with both constipation and diarrh ea K58.2 Active 64669294 Problem Attention deficit hyperactiv ity disorder (ADHD), predominantly inattentive type F90.0 Active 55956253 Problem Bipolar I disorder with depression F31.9 Active 09272747 Problem Chronic post-traumatic stress disorder (PTSD) F43. 12 Active 502553592 Problem Bipolar affective disorder, remission status unspecified F31.9 Active 04043409 Problem Mild persistent asthma without complication J45.30 Active 554068556 Problem Moderate persistent asthma without complication J4 5.40 Active 710848358 Problem Acute non-recurrent maxillary sinusitis J01.00 Active 85500797 Problem Bipolar 1 disorder, depressed, partial remission F 31.75 Active 03596092 ALLERGIES No Information ENCOUNTERS Encounter Location Date Diagnosis [place] [id number] [id number] [address] [place] [id number] Mar, [place] [address] [id number] [address] [place] [phone] Dec, [place] [address] [id number] [address] [place] [id number] Dec, [place] [address] [id number] [address] [place] [phone] Dec, Cerebrovascular accident (CV A) due to occlusion of right cerebellar artery I63.541 [place] [address] [id number] [address] [place] [id number] Dec, [facility] [address] [id number] [address] [place] [phone] Dec, [place] [address] [id number] [address] [place] [id number] Nov, Bipolar 1 disorder, depresse d, partial remission F31.75 and Panic disorder with agoraphobia F40.01 [facility] [address] [id number] [address] [place] [phone] Nov, Panlobular emphysema J43.1 [facility] [address] [id number] [address] [place] [id number] Nov, Cerebrovascular accident (CV A) due to occlusion of right cerebellar artery I63.541 and Acute non-recurrent maxillary sinusitis J01.00 [facility] [address] [id number] [address] [place] [id number] Nov, Panlobular emphysema J43.1 [facility] [address] [id number] [address] [place] [phone] Nov, [facility] [address] [id number] [address] [place] [id number] Nov, [facility] [address] [id number] [address] [place] [id number] Nov, [facility] [address] [id number] [address] [place] [phone] Nov, [facility] [address] [id number] [address] [place] [phone] Nov, [facility] [address] [id number] [address] [place] [phone] Nov, [facility] [address] [id number] [address] [place] [id number] Nov, [facility] [address] [id number] [address] [place] [id number] Nov, Mild persistent asthma witho ut complication J45.30 and Irritable bowel syndrome with both constipation and diarrhea K58.2 [facility] [address] [id number] [address] [place] [phone] Nov, [facility] [address] [id number] [address] [place] [phone] Oct, [facility] [address] [id number] [address] [place] [phone] Oct, [facility] [address] [id number] [address] [place] [id number] Oct, Type 2 diabetes mellitus wit h diabetic neuropathy, unspecified whether correction insulin use E11.40 ; Diabetes E11.9 ; Slow transit constipation K59.01 ; Edema of both legs R60.0 and Dysfunction of right eustachian tube H69.81 [facility] [address] [id number] [address] [place] [phone] Oct, Frequent headaches R51 [facility] [address] [id number] [address] [place] [phone] Oct, [facility] [address] [id number] [address] [place] [phone] Oct, [facility] [address] [id number] [address] [place] [phone] Oct, [facility] [address] [id number] [address] [place] [id number] Oct, [facility] [address] [id number] [address] [place] [phone] Oct, [facility] [address] [id number] [address] [place] [phone] Oct, [facility] [address] [id number] [address] [place] [phone] Oct, [facility] [address] [id number] [address] [place] [phone] Oct, [facility] [address] [id number] [address] [place] [phone] September, Frequent headaches R51 [facility] [address] [id number] [address] [place] [id number] September, Bilateral otitis media with effusion H65.93 ; Dizziness R42 and Essential tremor G25.0 [facility] [address] [id number] [address] [place] [id number] September, Chronic obstructive pulmonar y disease, unspecified COPD type J44.9 [facility] [address] [id number] [address] [place] [phone] September, Chronic obstructive pulmonar y disease, unspecified COPD type J44.9 [facility] [address] [id number] [address] [place] [id number] September, Migraine without aura and wi thout status migrainosus, not intractable G43.009 [facility] [address] [id number] [address] [place] [id number] September, [facility] [address] [facility] [id number] [address] [place] [phone] September, [facility] [address] [facility] [id number] [address] [place] [phone] September, [facility] [address] [facility] [id number] [address] [place] [phone] September, Frequent headaches R51 [facility] [address] [facility] [id number] [address] [place] [phone] Aug, [facility] [address] [place] [id number] [address] [place] [phone] Aug, Breast mass, right N63.10 [facility] [address] [facility] [id number] [address] [place] [phone] Aug, Breast lump N63.0 [facility] [address] [facility] [id number] [address] [place] [phone] Aug, [facility] [address] [facility] [id number] [address] [place] [phone] Aug, Bipolar affective disorder, remission status unspecified F31.9 and Diabetes E11.9 [facility] [address] [facility] [id number] [address] [place] [phone] Aug, Diabetes E11.9 ; Schizoaffec tive disorder, bipolar type F25.0 ; Pharyngitis due to other organism J02.8 ; Panlobular emphysema J43.1 and Irritable bowel syndrome with both constipation and diarrhea K58.2 [facility] [address] [facility] [id number] [address] [place] [phone] Aug, Abnormal mammogram R92.8 [facility] [address] [facility] [id number] [address] [place] [id number] Aug, [facility] [address] [facility] [id number] [address] [place] [id number] Aug, Bipolar 1 disorder, depresse d, moderate F31.32 ; Panic disorder with agoraphobia F40.01 and Chronic post-traumatic stress disorder (PTSD) F43.12 [facility] [address] [facility] [id number] [address] [place] [phone] Aug, [facility] [address] [facility] [id number] [address] [place] [phone] Aug, [place] [address] [place] [id number] [place] [phone] Aug, [place] [address] [place] [id number] [address] [place] [id number] Jul, [place] [address] [place] [id number] [address] [place] [id number] Jul, Mild persistent asthma witho ut complication J45.30 [place] [address] [place] [id number] [address] [place] [id number] Jul, Mild persistent asthma witho ut complication J45.30 [place] [address] [place] [id number] [address] [place] [id number] 15 Jul, 2017 Bipolar affective disorder, remission status unspecified F31.9 ; Diabetes E11.9 and Irritable bowel syndrome with constipation K58.1 [facility] [address] [facility] [id number] [address] [place] [phone] 13 Jul, 2017 [place] [address] [place] [id number] [address] [place] [id number] 09 Jul, 2017 [place] [address] [place] [id number] [address] [place] [id number] 08 Jul, 2017 Frequent headaches R51 [place] [address] [place] [id number] [address] [place] [id number] Jul, [facility] [address] [facility] [id number] [address] [place] [phone] Jul, [facility] [address] [facility] [id number] [address] [place] [id number] Jul, [facility] [address] [facility] [id number] [address] [place] [id number] Jul, Frequent headaches R51 ; Fib rocystic disease of left breast N60.12 ; Fibrocystic disease of right breast N60.11 and Diabetes E11.9 [facility] [address] [facility] [id number] [address] [place] [phone] Jul, [facility] [address] [facility] [id number] [address] [place] [phone] Jul, [place] [address] [facility] [id number] [address] [place] [id number] 21 Jun, 2017 Exudative tonsillitis J03.90 [place] [address] [facility] [id number] [address] [place] [id number] 20 Jun, 2017 [place] [address] [facility] [id number] [place] [phone] 19 Jun, 2017 [place] [address] [facility] [id number] [place] [phone] 15 Jun, 2017 Mild persistent asthma witho ut complication J45.30 ; Chronic obstructive pulmonary disease, unspecified COPD type J44.9 and Exudative tonsillitis J03.90 [place] [address] [facility] [id number] [address] [place] [phone] 13 Jun, 2017 Encounter for immunization Z 23 [place] [address] [facility] [id number] [address] [place] [id number] 12 Jun, 2017 [place] [address] [place] [id number] [address] [place] [id number] 12 Jun, 2017 [place] [address] [phone] 09 Jun, [address] [facility] [address] [facility] [id number] [address] [place] [id number] 06 Jun, 2017 Tonsillitis J03.90 [facility] [address] [facility] [id number] [address] [place] [id number] 05 Jun, 2017 [facility] [address] [facility] [id number] [address] [place] [id number] 03 Jun, 2017 Acute non-recurrent maxillar y sinusitis J01.00 [facility] [address] [facility] [id number] [address] [place] [id number] 02 Jun, 2017 [facility] [address] [facility] [id number] [address] [place] [id number] May, [facility] [address] [place] [id number] [address] [place] [phone] May, [facility] [address] [place] [id number] [address] [place] [phone] May, GERD (gastroesophageal reflu x disease) K21.9 [facility] [address] [place] [id number] [place] [phone] May, Migraine without aura and wi thout status migrainosus, not intractable G43.009 [facility] [address] [facility] [id number] [address] [place] [id number] May, [facility] [address] [place] [id number] [address] [place] [phone] May, [facility] [address] [place] [id number] [address] [place] [phone] May, Panlobular emphysema J43.1 a nd Acute non-recurrent maxillary sinusitis J01.00 [facility] [address] [facility] [id number] [address] [place] [phone] 04 May, 2017 Bipolar 1 disorder, depresse d, moderate F31.32 ; Panic disorder with agoraphobia F40.01 and Akathisia G25.71 [facility] [address] [id number] [address] [place] [id number] 27 Apr, 2017 [facility] [address] [id number] [address] [place] [id number] 14 Apr, 2017 [facility] [address] [facility] [id number] [address] [place] [id number] Apr, Acute non-recurrent maxillar y sinusitis J01.00 [facility] [address] [id number] [address] [place] [id number] 07 Apr, 2017 Panlobular emphysema J43.1 [facility] [address] [id number] [address] [place] [id number] 04 Apr, [address] [facility] [address] [facility] [id number] [address] [place] [phone] 04 Apr, 2017 Exudative tonsillitis J03.90 and Sore throat J02.9 [facility] [address] [id number] [address] [place] [id number] 17 Mar, 2017 [facility] [address] [facility] [id number] [address] [place] [id number] 15 Mar, 2017 Acute non-recurrent maxillar y sinusitis J01.00 [facility] [address] [facility] [id number] [address] [place] [id number] 13 Mar, 2017 [facility] [address] [facility] [id number] [address] [place] [phone] 09 Mar, 2017 Panlobular emphysema J43.1 a nd Diabetes E11.9 [facility] [address] [id number] [address] [place] [phone] 06 Mar, 2017 [facility] [address] [facility] [id number] [address] [place] [id number] 24 Feb, 2017 Wheezing R06.2 and Acute rec urrent pansinusitis J01.41 [facility] [address] [id number] [address] [place] [id number] Feb, [facility] [address] [id number] [address] [place] [phone] Feb, Acute non-recurrent maxillar y sinusitis J01.00 [facility] [address] [id number] [address] [place] [id number] 16 Feb, 2017 Chronic obstructive pulmonar y disease, unspecified J44.9 [place] [address] [id number] [address] [place] [phone] Feb, Hypoxemia R09.02 and Chronic obstructive pulmonary disease, unspecified J44.9 [place] [address] [facility] [id number] [address] [place] [id number] 28 Jan, 2017 Bipolar 1 disorder, depresse d, moderate F31.32 ; Panic disorder with agoraphobia F40.01 ; Chronic post-traumatic stress disorder (PTSD) F43.12 ; Diabetes E11.9 and Moderate persistent asthma without complication J45.40 [place] [address] [facility] [id number] [address] [place] [id number] 22 Jan, 2017 [place] [address] [facility] [id number] [address] [place] [id number] 19 Jan, 2017 Acute non-recurrent maxillar y sinusitis J01.00 [place] [id number] [facility] [id number] [address] [place] [id number] 18 Jan, 2017 [place] [address] [facility] [id number] [address] [place] [id number] 18 Jan, 2017 [place] [address] [facility] [id number] [address] [place] [phone] 12 Jan, 2017 Moderate persistent asthma w [facility] complication J45.40 and Hypoxemia R09.02 [place] [address] [facility] [id number] [address] [place] [phone] 11 Jan, 2017 Moderate persistent asthma w [facility] complication J45.40 and Hypoxemia R09.02 [place] [address] [facility] [id number] [address] [place] [id number] Jan, [facility] [address] [id number] [address] [place] [id number] Dec, Acute non-recurrent maxillar y sinusitis J01.00 [facility] [address] [id number] [address] [place] [phone] Dec, Chronic obstructive pulmonar y disease, unspecified J44.9 [facility] [address] [id number] [address] [place] [phone] Dec, [facility] [address] [id number] [address] [place] [phone] Dec, Mild persistent asthma witho ut complication J45.30 and Other chronic pain G89.29 [facility] [address] [id number] [address] [place] [id number] Nov, [facility] [address] [id number] [address] [place] [phone] Nov, Acute non-recurrent maxillar y sinusitis J01.00 [facility] [address] [id number] [address] [place] [phone] Nov, [facility] [address] [id number] [address] [place] [id number] Nov, [facility] [address] [id number] [address] [place] [id number] Oct, [facility] [address] [facility] [id number] [address] [place] [id number] Oct, Bipolar 1 disorder, depresse d, partial remission F31.75 ; Panic disorder with agoraphobia F40.01 and Chronic post-traumatic stress disorder (PTSD) F43.12 [facility] [address] [id number] [address] [place] [id number] Oct, Acute non-recurrent maxillar y sinusitis J01.00 [facility] [address] [id number] [address] [place] [id number] Oct, [facility] [address] [facility] [id number] [address] [place] [phone] Oct, Diabetes E11.9 [facility] [address] [id number] [address] [place] [phone] September, Diabetes E11.9 [facility] [address] [facility] [id number] [address] [place] [id number] September, Diabetes E11.9 and Sinus tac hycardia R00.0 [facility] [address] [id number] [address] [place] [id number] September, [facility] [address] [facility] [id number] [address] [place] [id number] September, [facility] [address] [facility] [id number] [address] [place] [id number] Aug, Diabetes E11.9 and Lumbago w ith sciatica, right side M54.41 [facility] [address] [facility] [id number] [address] [place] [id number] Aug, [facility] [address] [facility] [id number] [address] [place] [id number] Jul, Bipolar 1 disorder, depresse d, moderate F31.32 ; Panic disorder with agoraphobia F40.01 and Chronic post-traumatic stress disorder (PTSD) F43.12 [facility] [address] [facility] [id number] [address] [place] [id number] Jul, Sore throat J02.9 [facility] [address] [facility] [id number] [address] [place] [id number] Jul, [facility] [address] [facility] [id number] [address] [place] [id number] Jul, [facility] [address] [facility] [id number] [address] [place] [id number] Jul, [facility] [address] [facility] [id number] [address] [place] [id number] Jul, [facility] [address] [id number] [address] [place] [id number] Jul, Sore throat J02.9 and Pharyn gitis, unspecified etiology J02.9 [facility] [address] [id number] [address] [place] [id number] Jun, [facility] [address] [id number] [address] [place] [id number] Jun, Diabetes E11.9 [facility] [address] [id number] [address] [place] [id number] Jun, [facility] [address] [facility] [id number] [address] [place] [id number] Jun, [facility] [address] [facility] [id number] [address] [place] [id number] Jun, [facility] [address] [facility] [id number] [address] [place] [id number] Jun, [facility] [address] [facility] [id number] [address] [place] [id number] Jun, [facility] [address] [facility] [id number] [address] [place] [id number] Jun, [facility] [address] [facility] [id number] [address] [place] [id number] Jun, [facility] [address] [facility] [id number] [address] [place] [id number] Jun, [facility] [address] [facility] [id number] [address] [place] [id number] May, Diabetes E11.9 ; Other chron ic pain G89.29 ; Acute recurrent maxillary sinusitis J01.01 ; Bipolar I disorder with depression F31.9 and Anxiety disorder, unspecified F41.9 [facility] [address] [facility] [id number] [address] [place] [id number] May, [place] [id number] [facility] [id number] [address] [place] [address] May, Diabetes E11.9 ; Bipolar I d isorder with depression F31.9 ; Anxiety disorder, unspecified F41.9 ; Other chronic pain G89.29 and Acute recurrent maxillary sinusitis J01.[address] [place] [address] [facility] [id number] [address] [place] [phone] May, [place] [address] [facility] [id number] [address] [place] [phone] May, Attention deficit hyperactiv ity disorder (ADHD), predominantly inattentive type F90.0 [place] [address] [place] [id number] [address] [place] [id number] May, [place] [address] [place] [id number] [address] [place] [address] Apr, Attention deficit hyperactiv ity disorder (ADHD), predominantly inattentive type F90.0 and Non-seasonal allergic rhinitis due to other allergic trigger J30.89 [place] [address] [place] [id number] [address] [place] [address] Apr, Bipolar 1 disorder, depresse d, moderate F31.32 ; Panic disorder with agoraphobia F40.01 and Chronic post-traumatic stress disorder (PTSD) F43.12 [place] [address] [facility] [id number] [address] [place] [id number] Apr, Dental examination Z01.20 [place] [address] [id number] [address] [place] [id number] Mar, [place] [address] [place] [id number] [address] [place] [id number] Mar, [place] [address] [facility] [id number] [address] [place] [phone] Mar, Bipolar I disorder with depr ession F31.9 and Anxiety disorder, unspecified F41.9 [place] [address] [facility] [id number] [address] [place] [id number] 08 Mar, 2016 Panic disorder with agorapho syd F40.01 ; Bipolar 1 disorder, depressed, moderate F31.32 and Chronic post-traumatic stress disorder (PTSD) F43.12 [place] [address] [facility] [id number] [address] [place] [id number] Mar, [place] [address] [facility] [id number] [address] [place] [phone] Mar, Dental caries K02.9 [place] [address] [place] [id number] [address] [place] [id number] Feb, Lumbago with sciatica, left side M54.42 ; Lumbago with sciatica, right side M54.41 and Other chronic pain G89.29 [place] [address] [place] [id number] [address] [place] [id number] 17 Feb, 2016 [place] [address] [place] [id number] [address] [place] [id number] 14 Feb, 2016 [place] [address] [place] [id number] [place] [phone] 13 Feb, 2016 Bipolar I disorder with depr ession F31.9 ; PTSD (post-traumatic stress disorder) F43.10 and Mood disorder F39 [place] [address] [place] [id number] [address] [place] [id number] 13 Feb, 2016 [place] [address] [place] [id number] [address] [place] [id number] 11 Feb, 2016 Dental examination Z01.20 [facility] [address] [facility] [id number] [address] [place] [id number] 07 Feb, 2016 [facility] [address] [place] [id number] [address] [place] [phone] 03 Feb, 2016 Acute bronchitis, unspecifie d organism J20.9 [facility] [address] [place] [id number] [address] [place] [phone] Jan, Mood disorder F39 ; Migraine without aura and without status migrainosus, not intractable G43.009 ; Irritable bowel syndrome, unspecified type K58.9 ; Diabetes E11.9 and Encounter for immunization Z23 [facility] [address] [facility] [id number] [address] [place] [id number] Jan, [facility] [address] [facility] [id number] [address] [place] [phone] Jan, [facility] [address] [place] [id number] [address] [place] [phone] Jan, [facility] [address] [place] [id number] [address] [place] [id number] Jan, [facility] [address] [place] [id number] [place] [phone] Jan, [facility] [address] [place] [id number] [address] [place] [id number] Dec, Bipolar I disorder with depr ession F31.9 ; PTSD (post-traumatic stress disorder) F43.10 and Panic disorder with agoraphobia F40.01 [facility] [address] [place] [id number] [place] [address] Dec, Chronic obstructive pulmonar y disease, unspecified COPD type J44.9 ; Tremor R25.1 and Anxiety F41.9 [facility] [address] [place] [id number] [address] [place] [phone] Dec, [facility] [address] [place] [id number] [address] [place] [id number] Nov, Tremors of nervous system R2 5.1 and Cramping of feet R25.2 [facility] [address] [place] [id number] [address] [place] [id number] Nov, [facility] [address] [place] [id number] [address] [place] [id number] Nov, [facility] [address] [place] [id number] [address] [place] [id number] Oct, Chronic obstructive pulmonar y disease, unspecified J44.9 [place] [address] [place] [id number] [address] [place] [id number] Oct, [place] [address] [place] [id number] [address] [place] [address] Oct, Tremor R25.1 [place] [address] [phone] Oct, Bipolar I disorder with depr ession F31.9 ; Diabetes E11.9 ; PTSD (post-traumatic stress disorder) F43.10 and Panic disorder with agoraphobia F40.01 [place] [address] [phone] Oct, Mood disorder F39 [place] [address] [id number] September, [place] [address] [address] September, Diabetes E11.9 ; Bipolar I d isorder with depression F31.9 ; PTSD (post-traumatic stress disorder) F43.10 and Panic disorder with agoraphobia F40.01 [place] [address] [address] September, Mood disorder F39 ; Schizoaf fective disorder, unspecified type F25.9 ; Arthritis M19.90 ; Tremor R25.1 ; Acute non-recurrent frontal sinusitis J01.10 and Blood in stool K92.1 [place] [address] [address] September, [place] [address] [address] September, Chronic obstructive pulmonar y disease, unspecified J44.9 [place] [address] [address] September, Diabetes E11.9 [facility] [address] [id number] [address] [place] [id number] Aug, Other bipolar disorder F31.8 9 and Anxiety disorder, unspecified F41.9 [facility] [address] [id number] [address] [place] [phone] Aug, [facility] [address] [facility] [id number] [address] [place] [id number] Aug, Diabetes E11.9 [facility] [address] [id number] [address] [place] [id number] Aug, [facility] [address] [facility] [id number] [address] [place] [id number] 14 Aug, 2015 Diabetes E11.9 ; Fatigue R53 .83 and Dizziness R42 [facility] [address] [facility] [id number] [address] [place] [address] Aug, Other bipolar disorder F31.8 9 [facility] [address] [id number] [address] [place] [id number] Aug, Generalized anxiety disorder F41.1 [facility] [address] [facility] [id number] [address] [place] [phone] Aug, Other bipolar disorder F31.8 9 and Anxiety disorder, unspecified F41.9 [facility] [address] [facility] [id number] [address] [place] [id number] Aug, [facility] [address] [id number] [address] [place] [id number] Jul, [facility] [address] [id number] [address] [place] [id number] Jul, [facility] [address] [facility] [id number] [address] [place] [phone] Jul, Bronchitis J40 [facility] [address] [facility] [id number] [address] [place] [id number] Jul, Anxiety disorder F41.9 [facility] [address] [id number] [address] [place] [phone] Jul, Other bipolar disorder F31.8 9 and Anxiety disorder, unspecified F41.9 [facility] [address] [id number] [address] [place] [phone] Jul, Other bipolar disorder F31.8 9 and Fibromyalgia M79.7 [facility] [address] [id number] [address] [place] [id number] Jul, [facility] [address] [id number] [address] [place] [phone] Jul, [facility] [address] [id number] [address] [place] [id number] Jul, [facility] [address] [facility] [id number] [address] [place] [id number] Jul, Other bipolar disorder F31.8 9 and Anxiety disorder, unspecified F41.9 [facility] [address] [id number] [address] [place] [id number] Jun, GERD (gastroesophageal reflu x disease) K21.9 [facility] [address] [facility] [id number] [address] [place] [id number] Jun, [facility] [address] [facility] [id number] [address] [place] [id number] May, [facility] [address] [facility] [id number] [address] [place] [id number] May, Diabetes E11.9 ; Back pain M 54.9 ; GERD (gastroesophageal reflux disease) K21.9 ; Hypertension I10 and Peripheral neuropathy G62.9 [facility] [address] [id number] [address] [place] [id number] Mar, [facility] [address] [facility] [id number] [address] [place] [id number] Mar, [facility] [address] [facility] [id number] [address] [place] [phone] Mar, Acute sinusitis J01.90 and O titis media, left H66.92 [facility] [address] [facility] [id number] [address] [place] [id number] Feb, [facility] [address] [facility] [id number] [address] [place] [id number] Feb, [facility] [address] [facility] [id number] [address] [place] [id number] Feb, [facility] [address] [facility] [id number] [address] [place] [id number] Feb, [facility] [address] [place] [id number] [address] [place] [id number] Jan, [facility] [address] [place] [id number] [place] [address] Jan, Diabetes 250.00 and Back higinio n 724.5 [facility] [address] [facility] [id number] [address] [place] [id number] Jan, [facility] [address] [place] [id number] [place] [address] Dec, Diabetes 250.00 ; Benign ess ential hypertension 401.1 and Allergic rhinitis 477.9 [facility] [address] [place] [id number] [address] [place] [id number] Dec, [facility] [address] [place] [id number] [address] [place] [id number] Dec, [facility] [address] [place] [id number] [address] [place] [id number] Dec, Psychosis 298.9 [facility] [address] [place] [id number] [place] [address] Dec, Medication side effect 995.2 0 and Generalized anxiety disorder 300.02 [facility] [address] [place] [id number] [address] [place] [id number] Dec, Acquired cognitive dysfuncti on 294.9 [facility] [address] [id number] [address] [place] [phone] Dec, [facility] [address] [facility] [id number] [address] [place] [phone] Dec, Unspecified myalgia and myos itis 729.1 and Generalized anxiety disorder 300.02 [facility] [address] [id number] [address] [place] [id number] Nov, [facility] [address] [id number] [address] [place] [phone] Nov, [facility] [address] [id number] [address] [place] [id number] Nov, [facility] [address] [facility] [id number] [address] [place] [id number] Nov, Upper respiratory infection 465.9 and Chronic airway obstruction, not elsewhere classified 496 [facility] [address] [id number] [address] [place] [id number] Nov, Hyponatremia 276.1 [facility] [address] [facility] [id number] [address] [place] [id number] Oct, [facility] [address] [facility] [id number] [address] [place] [phone] Oct, [facility] [address] [facility] [id number] [address] [place] [id number] Oct, [facility] [address] [facility] [id number] [address] [place] [id number] Oct, [facility] [address] [facility] [id number] [address] [place] [id number] Oct, Hyponatremia 276.1 [facility] [address] [facility] [id number] [address] [place] [id number] Oct, [facility] [address] [facility] [id number] [address] [place] [id number] Oct, [facility] [address] [id number] [address] [place] [id number] Oct, Generalized anxiety disorder 300.02 [facility] [address] [id number] [address] [place] [phone] Oct, Generalized anxiety disorder 300.02 and Diabetes 250.00 [facility] [address] [id number] [address] [place] [id number] Aug, [facility] [address] [id number] [address] [place] [id number] Aug, [facility] [address] [id number] [address] [place] [id number] Jul, [facility] [address] [id number] [address] [place] [id number] Jul, [facility] [address] [id number] [address] [place] [phone] Jun, [facility] [address] [id number] [address] [place] [phone] Jun, [facility] [address] [id number] [address] [place] [id number] Jun, [facility] [address] [id number] [address] [place] [id number] Jun, [facility] [address] [id number] [address] [place] [id number] Jun, [facility] [address] [id number] [address] [place] [id number] May, [facility] [address] [id number] [address] [place] [id number] May, [facility] [address] [id number] [address] [place] [phone] Apr, [facility] [address] [id number] [address] [place] [id number] Apr, [facility] [address] [id number] [address] [place] [address], [place] [address] Apr, [facility] [address] [id number] [address] [place] [address], [place] [id number] Apr, [facility] [address] [id number] [address] [place] [address], [place] [id number] Apr, [facility] [address] [id number] [address] [place] [address], [place] [id number] Apr, [facility] [address] [id number] [address] [place] [address], [place] [address] Apr, [facility] [address] [id number] [address] [place] [address], [place] [address] Apr, [facility] [address] [id number] [address] [place] [address], [place] [id number] Feb, [facility] [address] [id number] [address] [place] [address], [place] [address] Feb, [facility] [address] [id number] [address] [place] [address], [place] [id number] Jan, [facility] [address] [id number] [address] [place] [address], [place] [address] Jan, [facility] [address] [id number] [address] [place] [address], [place] [id number] Dec, [facility] [address] [id number] [address] [place] [id number] Dec, [facility] [address] [id number] [address] [place] [address], [place] [address] Dec, [facility] [address] [id number] [address] [place] [address], [place] [address] Nov, [facility] [address] [id number] [address] [place] [address], [place] [address] Nov, [facility] [address] [id number] [address] [place] [address], [place] [id number] Nov, [facility] [address] [id number] [address] [place] [address], [place] [id number] Oct, [facility] [address] [id number] [address] [place] [address], [place] [id number] Oct, [facility] [address] [id number] [address] [place] [address], [place] [address] Oct, [facility] [address] [id number] [address] [place] [address], [place] [address] September, [facility] [address] [id number] [address] [place] [address], [place] [address] September, [facility] [address] [id number] [address] [place] [address], [place] [address] September, [facility] [address] [id number] [address] [place] [address], [place] [address] Aug, [facility] [address] [id number] [address] [place] [address], [place] [address] Aug, [facility] [address] [id number] [address] [place] [address], [place] [address] Aug, [facility] [address] [id number] [address] [place] [address], [place] [id number] 16 Aug, 2011 [facility] [address] [id number] [address] [place] [address], [place] [address] Jul, [facility] [address] [id number] [address] [place] [address], [place] [address] Jun, [facility] [address] [id number] [address] [place] [address], [place] [id number] 14 Jun, 2011 [facility] [address] [id number] [address] [place] [address], [place] [id number] 13 Jun, 2011 [facility] [address] [id number] [address] [place] [address], [place] [address] 07 Jun, 2011 [facility] [address] [id number] [address] [place] [address], [place] [address] Jun, [facility] [address] [id number] [address] [place] [address], [place] [address] May, [facility] [address] [id number] [address] [place] [address], [place] [address] May, [facility] [address] [id number] [address] [place] [address], [place] [address] May, [facility] [address] [id number] [address] [place] [address], [place] [address] May, [facility] [address] [id number] [address] [place] [address], [place] [address] Apr, [facility] [address] [id number] [address] [place] [address], [place] [address] Apr, [facility] [address] [id number] [address] [place] [address], [place] [address] Apr, [facility] [address] [id number] [address] [place] [address], [place] [address] Mar, [facility] [address] [id number] [address] [place] [id number] Mar, [facility] [address] [id number] [address] [place] [id number] Mar, [facility] [address] [id number] [address] [place] [id number] Feb, [facility] [address] [id number] [address] [place] [address], [place] [address] Feb, [facility] [address] [id number] [address] [place] [id number] Feb, [facility] [address] [id number] [address] [place] [id number] Nov, [facility] [address] [id number] [address] [place] [id number] 16 Sep, 2010 [facility] [address] [id number] [address] [place] [id number] Aug, [facility] [address] [id number] [address] [place] [id number] Jul, [facility] [address] [id number] [address] [place] [id number] May, [facility] [address] [id number] [address] [place] [id number] Apr, [facility] [address] [facility] [id number] [address] [place] [id number] Apr, [facility] [address] [facility] [id number] [address] [place] [id number] Apr, [facility] [address] [facility] [id number] [address] [place] [id number] Apr, [facility] [address] [facility] [id number] [address] [place] [id number] Apr, IMMUNIZATIONS No Known Immunizations SOCIAL HISTORY Never Assessed REASON FOR VISIT Waiting for call back PLAN OF CARE VITAL SIGNS MEDICATIONS Unknown [...]
--- OUTSIDE RECORDS SUMMARY | 2019-07-17 11:02 | XMS REPORT ---
Author Author Sujey GANDHI Organization [facility] Address [address] [place] [address] Care Team Providers Care Research Assistant Name Role Phone WHIT GANDHI Unavailable PROBLEMS Type Condition ICD9-CM Code DBN16-RQ Code Onset Dates Condition S tatus SNOMED Code Problem Back pain M54.9 Active 160896458 Problem Diabetes E11.9 Active 06348976 Problem GERD (gastroesophageal reflux disease) K21.9 Active 975791892 Problem Hypertension I10 Active 5646396 3 Problem Anxiety disorder, unspecified F41.9 Active 717235161 Problem Other bipolar disorder F31.89 Active 07322352 Problem Fibromyalgia M79.7 Active 5658688 7 Problem Panic disorder with agoraphobia F40.01 Active 68887481 Problem Panlobular emphysema J43.1 Active 6015626 Problem Chronic obstructive pulmonary disease, unspecified J44.9 Active 13899047 Problem Akathisia G25.71 Active 633186573 Problem Lumbago with sciatica, left side M54.42 Active 459419377 Problem Migraine without aura and without status migrain osus, not intractable G43.009 Active 123551306 Problem Fibrocystic disease of right breast N60.11 Active 57735874 Problem Fibrocystic disease of left breast N60.12 Active 21901758 Problem Slow transit constipation K59.01 Acti ve 05596694 Problem Essential tremor G25.0 Active 609 177698 Problem Bipolar 1 disorder, depressed, moderate F31.32 Active 67360803 Problem Other chronic pain G89.29 Active 8 3419027 Problem Lumbago with sciatica, right side M54.41 Active 675865961 Problem Irritable bowel syndrome with constipation K58.1 Active 780566971 Problem Arthritis M19.90 Active 2570664 Problem Schizoaffective disorder, bipolar type F25.0 Active 67484614 Problem Irritable bowel syndrome with both constipation and diarrh ea K58.2 Active 71028419 Problem Attention deficit hyperactiv ity disorder (ADHD), predominantly inattentive type F90.0 Active 88551994 Problem Bipolar I disorder with depression F31.9 Active 38684271 Problem Chronic post-traumatic stress disorder (PTSD) F43. 12 Active 468259379 Problem Bipolar affective disorder, remission status unspecified F31.9 Active 61671313 Problem Mild persistent asthma without complication J45.30 Active 741691181 Problem Moderate persistent asthma without complication J4 5.40 Active 330085345 Problem Acute non-recurrent maxillary sinusitis J01.00 Active 44984406 Problem Bipolar 1 disorder, depressed, partial remission F 31.75 Active 32295920 ALLERGIES No Information ENCOUNTERS Encounter Location Date Diagnosis [facility] [address] [id number] [address] [place] [phone] Mar, [facility] [address] [id number] [address] [place] [phone] Dec, [place] [address] [id number] [address] [place] [id number] Dec, Cerebrovascular accident (CV A) due to occlusion of right cerebellar artery I63.541 [facility] [address] [id number] [address] [place] [phone] Dec, [facility] [address] [id number] [address] [place] [phone] Dec, [facility] [address] [id number] [address] [place] [phone] Nov, Bipolar 1 disorder, depresse d, partial remission F31.75 and Panic disorder with agoraphobia F40.01 [facility] [address] [id number] [address] [place] [phone] Nov, Panlobular emphysema J43.1 [facility] [address] [id number] [address] [place] [id number] Nov, Cerebrovascular accident (CV A) due to occlusion of right cerebellar artery I63.541 and Acute non-recurrent maxillary sinusitis J01.00 [facility] [address] [id number] [address] [place] [phone] Nov, Panlobular emphysema J43.1 [facility] [address] [id number] [address] [place] [phone] Nov, [facility] [address] [id number] [address] [place] [phone] Nov, [facility] [address] [id number] [address] [place] [id number] Nov, [facility] [address] [id number] [address] [place] [phone] Nov, [facility] [address] [id number] [address] [place] [phone] Nov, [facility] [address] [facility] [id number] [address] [place] [phone] Nov, [facility] [address] [facility] [id number] [address] [place] [phone] Nov, [facility] [address] [facility] [id number] [address] [place] [address] Nov, Mild persistent asthma witho ut complication J45.30 and Irritable bowel syndrome with both constipation and diarrhea K58.2 [facility] [address] [facility] [id number] [address] [place] [id number] Nov, [facility] [address] [facility] [id number] [address] [place] [phone] Oct, [facility] [address] [facility] [id number] [address] [place] [phone] Oct, [facility] [address] [facility] [id number] [address] [place] [address] Oct, Type 2 diabetes mellitus wit h diabetic neuropathy, 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 ; Diabetes E11.9 ; Slow transit constipation K59.01 ; Edema of both legs R60.0 and Dysfunction of right eustachian tube H69.81 [facility] [address] [id number] [address] [place] [phone] Oct, Frequent headaches R51 [facility] [address] [id number] [address] [place] [id number] Oct, [facility] [address] [id number] [address] [place] [id number] Oct, [facility] [address] [id number] [address] [place] [phone] Oct, [facility] [address] [id number] [address] [place] [phone] Oct, [facility] [address] [id number] [address] [place] [phone] Oct, [facility] [address] [id number] [address] [place] [phone] Oct, [facility] [address] [id number] [address] [place] [phone] Oct, [facility] [address] [id number] [address] [place] [phone] Oct, [facility] [address] [id number] [address] [place] [address] September, Frequent headaches R51 [facility] [address] [facility] [id number] [address] [place] [phone] September, Bilateral otitis media with effusion H65.93 ; Dizziness R42 and Essential tremor G25.0 [facility] [address] [id number] [address] [place] [phone] September, Chronic obstructive pulmonar y disease, unspecified COPD type J44.9 [facility] [address] [facility] [id number] [address] [place] [phone] September, Chronic obstructive pulmonar y disease, unspecified COPD type J44.9 [facility] [address] [facility] [id number] [address] [place] [phone] 10 May, 2018 Migraine without aura and wi thout status migrainosus, not intractable G43.009 [facility] [address] [facility] [id number] [address] [place] [phone] September, [facility] [address] [facility] [id number] [address] [place] [phone] September, [facility] [address] [place] [id number] [address] [place] [phone] September, [facility] [address] [place] [id number] [place] [phone] September, Frequent headaches R51 [facility] [address] [facility] [id number] [address] [place] [phone] Aug, [facility] [address] [place] [id number] [place] [phone] Aug, Breast mass, right N63.10 [place] [address] [place] [id number] [place] [phone] Aug, Breast lump N63.0 [facility] [address] [place] [id number] [address] [place] [id number] Aug, [facility] [address] [address] Aug, Bipolar affective disorder, remission status unspecified F31.9 and Diabetes E11.9 [facility] [address] [address] Aug, Diabetes E11.9 ; Schizoaffec tive disorder, bipolar type F25.0 ; Pharyngitis due to other organism J02.8 ; Panlobular emphysema J43.1 and Irritable bowel syndrome with both constipation and diarrhea K58.2 [facility] [address] [place] [id number] [address] [place] [phone] Aug, Abnormal mammogram R92.8 [facility] [address] [place] [id number] [address] [place] [phone] Aug, [facility] [address] [facility] [id number] [address] [place] [phone] Aug, Bipolar 1 disorder, depresse d, moderate F31.32 ; Panic disorder with agoraphobia F40.01 and Chronic post-traumatic stress disorder (PTSD) F43.12 [facility] [address] [facility] [id number] [address] [place] [phone] Aug, [facility] [address] [facility] [id number] [address] [place] [phone] Aug, [facility] [address] [facility] [id number] [address] [place] [phone] Aug, [facility] [address] [facility] [id number] [address] [place] [phone] Jul, [facility] [address] [facility] [id number] [address] [place] [phone] Jul, Mild persistent asthma witho ut complication J45.30 [facility] [address] [facility] [id number] [address] [place] [id number] Jul, Mild persistent asthma witho ut complication J45.30 [facility] [address] [facility] [id number] [address] [place] [phone] 15 Jul, 2017 Bipolar affective disorder, remission status unspecified F31.9 ; Diabetes E11.9 and Irritable bowel syndrome with constipation K58.1 [facility] [address] [facility] [id number] [address] [place] [phone] Jul, [facility] [address] [facility] [id number] [address] [place] [phone] Jul, [facility] [address] [facility] [id number] [address] [place] [phone] 08 Jul, 2017 Frequent headaches R51 [facility] [address] [facility] [id number] [address] [place] [id number] 07 Jul, 2017 [facility] [address] [facility] [id number] [address] [place] [phone] Jul, [facility] [address] [place] [id number] [address] [place] [phone] Jul, [facility] [address] [address] Jul, Frequent headaches R51 ; Fib rocystic disease of left breast N60.12 ; Fibrocystic disease of right breast N60.11 and Diabetes E11.9 [facility] [address] [address] Jul, [facility] [address] [address] Jul, [facility] [address] [address] 21 Jun, 2017 Exudative tonsillitis J03.90 [place] [address] [address] 20 Jun, 2017 [facility] [address] [place] [id number] [address] [place] [phone] 19 Jun, 2017 [facility] [address] [address] 15 Jun, 2017 Mild persistent asthma witho ut complication J45.30 ; Chronic obstructive pulmonary disease, unspecified COPD type J44.9 and Exudative tonsillitis J03.90 [place] [address] [place] [id number] [address] [place] [phone] 13 Jun, 2017 Encounter for immunization Z 23 [facility] [address] [place] [id number] [address] [place] [phone] Jun, [facility] [address] [id number] Jun, [facility] [address] [place] [id number] [address] [place] [phone] 09 Jun, 2017 [facility] [address] [place] [phone] 06 Jun, 2017 Tonsillitis J03.90 [place] [address] [phone] 05 Jun, 2017 [place] [address] [address] 03 Jun, 2017 Acute non-recurrent maxillar y sinusitis J01.00 [place] [address] [address] 02 Jun, 2017 [place] [address] [address] May, [place] [address] [address] May, [place] [address] [address] May, GERD (gastroesophageal reflu x disease) K21.9 [place] [address] [address] May, Migraine without aura and wi thout status migrainosus, not intractable G43.009 [place] [address] [address] May, [place] [address] [address] May, [place] [address] [address] May, Panlobular emphysema J43.1 a nd Acute non-recurrent maxillary sinusitis J01.00 [place] [address] [address] 04 May, 2017 Bipolar 1 disorder, depresse d, moderate F31.32 ; Panic disorder with agoraphobia F40.01 and Akathisia G25.71 [place] [address] [address] Apr, [facility] [address] [id number] [address] [place] [phone] Apr, [facility] [address] [facility] [id number] [address] [place] [phone] Apr, Acute non-recurrent maxillar y sinusitis J01.00 [facility] [address] [facility] [id number] [address] [place] [id number] 07 Apr, 2017 Panlobular emphysema J43.1 [facility] [address] [id number] [address] [place] [id number] Apr, [facility] [address] [facility] [id number] [address] [place] [phone] 04 Apr, 2017 Sore throat J02.9 and Exudat minoo tonsillitis J03.90 [facility] [address] [facility] [id number] [address] [place] [id number] 17 Mar, 2017 [facility] [address] [facility] [id number] [address] [place] [id number] 15 Mar, 2017 Acute non-recurrent maxillar y sinusitis J01.00 [facility] [address] [facility] [id number] [address] [place] [phone] 13 Mar, 2017 [facility] [address] [facility] [id number] [address] [place] [phone] 09 Mar, 2017 Panlobular emphysema J43.1 a nd Diabetes E11.9 [facility] [address] [id number] [address] [place] [phone] 06 Mar, 2017 [facility] [address] [facility] [id number] [address] [place] [phone] 24 Feb, 2017 Wheezing R06.2 and Acute rec urrent pansinusitis J01.41 [facility] [address] [facility] [id number] [address] [place] [phone] Feb, [facility] [address] [id number] [address] [place] [phone] 16 Feb, 2017 Acute non-recurrent maxillar y sinusitis J01.00 [facility] [address] [id number] [address] [place] [id number] 16 Feb, 2017 Chronic obstructive pulmonar y disease, unspecified J44.9 [facility] [address] [id number] [address] [place] [phone] 02 Feb, 2017 Hypoxemia R09.02 and Chronic obstructive pulmonary disease, unspecified J44.9 [facility] [address] [id number] [address] [place] [phone] 28 Jan, 2017 Bipolar 1 disorder, depresse d, moderate F31.32 ; Panic disorder with agoraphobia F40.01 ; Chronic post-traumatic stress disorder (PTSD) F43.12 ; Diabetes E11.9 and Moderate persistent asthma without complication J45.40 [place] [address] [facility] [id number] [address] [place] [phone] 22 Jan, 2017 [facility] [address] [id number] [address] [place] [id number] 19 Jan, 2017 Acute non-recurrent maxillar y sinusitis J01.00 [facility] [address] [id number] [address] [place] [phone] 18 Jan, 2017 [facility] [address] [id number] [address] [place] [id number] 18 Jan, 2017 [facility] [address] [id number] [address] [place] [phone] 12 Jan, 2017 [facility].40 and Hypoxemia R09.02 [facility] [address] [id number] [address] [place] [id number] 11 Jan, 2017 Mod[facility] J[facility].40 and Hypoxemia R09.02 [facility] [address] [id number] [address] [place] [phone] 11 Jan, 2017 [facility] [address] [id number] [address] [place] [id number] Dec, Acute non-recurrent maxillar y sinusitis J01.00 [facility] [address] [id number] [address] [place] [address] Dec, Chronic obstructive pulmonar y disease, unspecified J44.9 [facility] [address] [id number] [address] [place] [id number] Dec, [facility] [address] [id number] [address] [place] [phone] Dec, Mild persistent asthma witho ut complication J45.30 and Other chronic pain G89.29 [facility] [address] [id number] [address] [place] [address] Nov, [facility] [address] [id number] [address] [place] [id number] Nov, Acute non-recurrent maxillar y sinusitis J01.00 [facility] [address] [id number] [address] [place] [phone] Nov, [facility] [address] [id number] [address] [place] [address] Nov, [facility] [address] [id number] [address] [place] [phone] Oct, [facility] [address] [id number] [address] [place] [id number] Oct, Bipolar 1 disorder, depresse d, partial remission F31.75 ; Panic disorder with agoraphobia F40.01 and Chronic post-traumatic stress disorder (PTSD) F43.12 [facility] [address] [id number] [address] [place] [id number] Oct, Acute non-recurrent maxillar y sinusitis J01.00 [facility] [address] [id number] [address] [place] [id number] Oct, [facility] [address] [id number] [address] [place] [phone] Oct, Diabetes E11.9 [facility] [address] [id number] [address] [place] [id number] September, Diabetes E11.9 [facility] [address] [facility] [id number] [address] [place] [address] September, Diabetes E11.9 and Sinus tac hycardia R00.0 [facility] [address] [id number] [address] [place] [phone] September, [facility] [address] [id number] [address] [place] [id number] September, [facility] [address] [facility] [id number] [address] [place] [id number] Aug, Diabetes E11.9 and Lumbago w ith sciatica, right side M54.41 [facility] [address] [facility] [id number] [address] [place] [phone] Aug, [facility] [address] [facility] [id number] [address] [place] [id number] Jul, Bipolar 1 disorder, depresse d, moderate F31.32 ; Panic disorder with agoraphobia F40.01 and Chronic post-traumatic stress disorder (PTSD) F43.12 [facility] [address] [facility] [id number] [address] [place] [phone] Jul, Sore throat J02.9 [facility] [address] [facility] [id number] [address] [place] [phone] Jul, [facility] [address] [facility] [id number] [address] [place] [phone] Jul, [facility] [address] [facility] [id number] [address] [place] [phone] Jul, [facility] [address] [facility] [id number] [address] [place] [phone] Jul, [facility] [address] [facility] [id number] [address] [place] [id number] Jul, Sore throat J02.9 and Pharyn gitis, unspecified etiology J02.9 [facility] [address] [facility] [id number] [address] [place] [id number] Jun, [facility] [address] [facility] [id number] [address] [place] [id number] 23 Jun, 2016 Diabetes E11.9 [facility] [address] [facility] [id number] [address] [place] [id number] Jun, [facility] [address] [facility] [id number] [address] [place] [phone] Jun, [facility] [address] [facility] [id number] [address] [place] [phone] Jun, [facility] [address] [facility] [id number] [address] [place] [phone] Jun, [facility] [address] [facility] [id number] [address] [place] [phone] Jun, [facility] [address] [facility] [id number] [address] [place] [id number] Jun, [facility] [address] [facility] [id number] [address] [place] [id number] Jun, [facility] [facility] [address] [facility] [id number] [address] [place] [phone] Jun, [facility] [address] [facility] [id number] [address] [place] [phone] May, Diabetes E11.9 ; Bipolar I d isorder with depression F31.9 ; Other chronic pain G89.29 ; Acute recurrent maxillary sinusitis J01.01 and Anxiety disorder, unspecified F41.9 [facility] [address] [facility] [id number] [address] [place] [phone] May, [facility] [address] [facility] [id number] [address] [place] [phone] May, Diabetes E11.9 ; Bipolar I d isorder with depression F31.9 ; Anxiety disorder, unspecified F41.9 ; Other chronic pain G89.29 and Acute recurrent maxillary sinusitis J01.01 [facility] [address] [id number] [address] [place] [phone] May, [place] [address] [id number] [address] [place] [phone] May, Attention deficit hyperactiv ity disorder (ADHD), predominantly inattentive type F90.0 [place] [address] [id number] [address] [place] [phone] May, [place] [address] [facility] [id number] [address] [place] [phone] Apr, Attention deficit hyperactiv ity disorder (ADHD), predominantly inattentive type F90.0 and Non-seasonal allergic rhinitis due to other allergic trigger J30.89 [place] [address] [facility] [id number] [address] [place] [phone] 15 Apr, 2016 Bipolar 1 disorder, depresse d, moderate F31.32 ; Panic disorder with agoraphobia F40.01 and Chronic post-traumatic stress disorder (PTSD) F43.12 [place] [address] [facility] [id number] [address] [place] [phone] 06 Apr, 2016 Dental examination Z01.20 [place] [address] [id number] [address] [place] [phone] Mar, [place] [address] [id number] [address] [place] [phone] Mar, [place] [address] [facility] [id number] [address] [place] [phone] Mar, Bipolar I disorder with depr ession F31.9 and Anxiety disorder, unspecified F41.9 [place] [address] [facility] [id number] [address] [place] [phone] Mar, Panic disorder with agorapho syd F40.01 ; Bipolar 1 disorder, depressed, moderate F31.32 and Chronic post-traumatic stress disorder (PTSD) F43.12 [place] [address] [place] [id number] [place] [phone] Mar, [place] [address] [place] [id number] [address] [place] [phone] Mar, Dental caries K02.9 [place] [address] [place] [id number] [place] [phone] 24 Feb, 2016 Lumbago with sciatica, left side M54.42 ; Lumbago with sciatica, right side M54.41 and Other chronic pain G89.29 [place] [address] [place] [id number] [place] [phone] 17 Feb, 2016 [place] [address] [id number] 14 Feb, 2016 [place] [address] [id number] 13 Feb, 2016 Bipolar I disorder with depr ession F31.9 ; PTSD (post-traumatic stress disorder) F43.10 and Mood disorder F39 [place] [address] [place] [id number] [place] [phone] 13 Feb, 2016 [place] [address] [id number] 11 Feb, 2016 Dental examination Z01.20 [place] [address] [place] [id number] [address] [place] [phone] 07 Feb, 2016 [facility] [address] [place] [id number] [address] [place] [phone] 03 Feb, 2016 Acute bronchitis, unspecifie d organism J20.9 [place] [address] [place] [id number] [address] [place] [phone] 26 Jan, 2016 Mood disorder F39 ; Migraine without aura and without status migrainosus, not intractable G43.009 ; Irritable bowel syndrome, unspecified type K58.9 ; Diabetes E11.9 and Encounter for immunization Z23 [facility] [address] [facility] [id number] [address] [place] [phone] Jan, [facility] [address] [facility] [id number] [address] [place] [phone] Jan, [facility] [address] [facility] [id number] [address] [place] [phone] Jan, [facility] [address] [facility] [id number] [address] [place] [phone] Jan, [facility] [address] [facility] [id number] [place] [phone] Jan, [facility] [address] [facility] [id number] [address] [place] [phone] Dec, Bipolar I disorder with depr ession F31.9 ; PTSD (post-traumatic stress disorder) F43.10 and Panic disorder with agoraphobia F40.01 [facility] [address] [place] [id number] [address] [place] [phone] Dec, Chronic obstructive pulmonar y disease, unspecified COPD type J44.9 ; Tremor R25.1 and Anxiety F41.9 [facility] [address] [place] [id number] [address] [place] [phone] Dec, [facility] [address] [place] [id number] [address] [place] [phone] Nov, Tremors of nervous system R2 5.1 and Cramping of feet R25.2 [facility] [address] [facility] [id number] [address] [place] [phone] Nov, [facility] [address] [facility] [id number] [address] [place] [phone] Nov, [facility] [address] [facility] [id number] [address] [place] [phone] Oct, Chronic obstructive pulmonar y disease, unspecified J44.9 [facility] [address] [facility] [id number] [address] [place] [phone] Oct, [facility] [address] [facility] [id number] [address] [place] [phone] Oct, Tremor R25.1 [facility] [address] [facility] [id number] [address] [place] [phone] Oct, Bipolar I disorder with depr ession F31.9 ; Diabetes E11.9 ; PTSD (post-traumatic stress disorder) F43.10 and Panic disorder with agoraphobia F40.01 [place] [address] [facility] [id number] [address] [place] [phone] Oct, Mood disorder F39 [place] [address] [facility] [id number] [address] [place] [phone] September, [place] [address] [place] [id number] [address] [place] [phone] September, Diabetes E11.9 ; Bipolar I d isorder with depression F31.9 ; PTSD (post-traumatic stress disorder) F43.10 and Panic disorder with agoraphobia F40.01 [place] [address] [facility] [id number] [address] [place] [phone] September, Mood disorder F39 ; Schizoaf fective disorder, unspecified type F25.9 ; Arthritis M19.90 ; Tremor R25.1 ; Acute non-recurrent frontal sinusitis J01.10 and Blood in stool K92.1 [facility] [address] [facility] [id number] [address] [place] [phone] September, [place] [address] [facility] [id number] [address] [place] [phone] September, Chronic obstructive pulmonar y disease, unspecified J44.9 [facility] [address] [place] [id number] [address] [place] [phone] September, Diabetes E11.9 [place] [address] [place] [id number] [address] [place] [phone] Aug, Other bipolar disorder F31.8 9 and Anxiety disorder, unspecified F41.9 [facility] [address] [id number] [address] [place] [phone] Aug, [facility] [address] [id number] [address] [place] [phone] Aug, Diabetes E11.9 [facility] [address] [id number] [address] [place] [phone] 18 Aug, 2015 [facility] [address] [id number] [address] [place] [phone] 14 Aug, 2015 Diabetes E11.9 ; Fatigue R53 .83 and Dizziness R42 [facility] [address] [id number] [address] [place] [phone] 13 Aug, 2015 Other bipolar disorder F31.8 9 [facility] [address] [id number] [address] [place] [phone] 07 Aug, 2015 Generalized anxiety disorder F41.1 [facility] [address] [id number] [address] [place] [id number] 07 Aug, 2015 Other bipolar disorder F31.8 9 and Anxiety disorder, unspecified F41.9 [facility] [address] [id number] [address] [place] [phone] 04 Aug, 2015 [facility] [address] [id number] [address] [place] [phone] 29 Jul, 2015 [facility] [address] [id number] [address] [place] [phone] 24 Jul, 2015 [facility] [address] [id number] [address] [place] [phone] 23 Jul, 2015 Bronchitis J40 [facility] [address] [id number] [address] [place] [phone] 22 Jul, 2015 Anxiety disorder F41.9 [facility] [address] [id number] [address] [place] [phone] Jul, Other bipolar disorder F31.8 9 and Anxiety disorder, unspecified F41.9 [facility] [address] [facility] [id number] [address] [place] [phone] Jul, Other bipolar disorder F31.8 9 and Fibromyalgia M79.7 [facility] [address] [facility] [id number] [address] [place] [phone] Jul, [facility] [address] [facility] [id number] [address] [place] [phone] Jul, [facility] [address] [facility] [id number] [address] [place] [phone] Jul, [facility] [address] [facility] [id number] [address] [place] [phone] Jul, Other bipolar disorder F31.8 9 and Anxiety disorder, unspecified F41.9 [facility] [address] [facility] [id number] [address] [place] [phone] Jun, GERD (gastroesophageal reflu x disease) K21.9 [facility] [address] [facility] [id number] [address] [place] [phone] Jun, [facility] [address] [facility] [id number] [address] [place] [phone] May, [facility] [address] [facility] [id number] [address] [place] [phone] May, Diabetes E11.9 ; Back pain M 54.9 ; GERD (gastroesophageal reflux disease) K21.9 ; Hypertension I10 and Peripheral neuropathy G62.9 [facility] [address] [facility] [id number] [address] [place] [phone] Mar, [facility] [address] [facility] [id number] [address] [place] [phone] Mar, [facility] [address] [facility] [id number] [address] [place] [phone] Mar, Acute sinusitis J01.90 and O titis media, left H66.92 [facility] [address] [facility] [id number] [address] [place] [phone] Feb, [facility] [address] [facility] [id number] [address] [place] [phone] Feb, [facility] [address] [facility] [id number] [address] [place] [phone] Feb, [facility] [address] [facility] [id number] [address] [place] [phone] Feb, [facility] [address] [facility] [id number] [address] [place] [phone] Jan, [facility] [address] [facility] [id number] [address] [place] [phone] Jan, Diabetes 250.00 and Back higinio n 724.5 [facility] [address] [place] [id number] [address] [place] [phone] Jan, [facility] [address] [facility] [id number] [address] [place] [phone] Dec, Diabetes 250.00 ; Benign ess ential hypertension 401.1 and Allergic rhinitis 477.9 [facility] [address] [facility] [id number] [address] [place] [phone] Dec, [facility] [address] [facility] [id number] [address] [place] [phone] Dec, [facility] [address] [place] [id number] [address] [place] [phone] Dec, Psychosis 298.9 [facility] [address] [facility] [id number] [address] [place] [phone] Dec, Medication side effect 995.2 0 and Generalized anxiety disorder 300.02 [facility] [address] [facility] [id number] [address] [place] [phone] Dec, Acquired cognitive dysfuncti on 294.9 [facility] [address] [place] [id number] [address] [place] [phone] Dec, [facility] [address] [id number] [address] [place] [phone] Dec, Unspecified myalgia and myos itis 729.1 and Generalized anxiety disorder 300.02 [facility] [address] [id number] [address] [place] [phone] Nov, [facility] [address] [id number] [address] [place] [phone] Nov, [facility] [address] [facility] [id number] [address] [place] [phone] Nov, [facility] [address] [facility] [id number] [address] [place] [phone] Nov, Upper respiratory infection 465.9 and Chronic airway obstruction, not elsewhere classified 496 [facility] [address] [id number] [address] [place] [phone] Nov, Hyponatremia 276.1 [facility] [address] [facility] [id number] [address] [place] [phone] Oct, [facility] [address] [facility] [id number] [address] [place] [phone] Oct, [facility] [address] [facility] [id number] [address] [place] [phone] Oct, [facility] [address] [id number] [address] [place] [phone] Oct, [facility] [address] [facility] [id number] [address] [place] [phone] Oct, Hyponatremia 276.1 [facility] [address] [id number] [address] [place] [phone] Oct, [facility] [address] [facility] [id number] [address] [place] [phone] Oct, [facility] [address] [facility] [id number] [address] [place] [phone] Oct, Generalized anxiety disorder 300.02 [facility] [address] [id number] [address] [place] [phone] Oct, Generalized anxiety disorder 300.02 and Diabetes 250.00 [facility] [address] [id number] [address] [place] [phone] 14 Aug, 2014 [facility] [address] [id number] [address] [place] [phone] Aug, [facility] [address] [id number] [address] [place] [phone] Jul, [facility] [address] [id number] [address] [place] [phone] Jul, [facility] [address] [id number] [address] [place] [phone] Jun, [facility] [address] [id number] [address] [place] [phone] Jun, [facility] [address] [id number] [address] [place] [phone] Jun, [facility] [address] [id number] [address] [place] [phone] Jun, [facility] [address] [id number] [address] [place] [phone] Jun, [facility] [address] [id number] [address] [place] [phone] May, [facility] [address] [id number] [address] [place] [phone] May, [facility] [address] [id number] [address] [place] [phone] Apr, [facility] [address] [id number] [address] [place] [phone] Apr, [facility] [address] [id number] [address] [place] [phone] Apr, [facility] [address] [id number] [address] [place] [address], [place] [id number] Apr, [facility] [address] [id number] [address] [place] [address], [place] [id number] Apr, [facility] [address] [id number] [address] [place] [address], [place] [id number] Apr, [facility] [address] [id number] [address] [place] [address], [place] [id number] Apr, [facility] [address] [id number] [address] [place] [address], [place] [id number] Apr, [facility] [address] [id number] [address] [place] [address], [place] [id number] Feb, [facility] [address] [id number] [address] [place] [address], [place] [id number] Feb, [facility] [address] [id number] [address] [place] [address], [place] [id number] Jan, [facility] [address] [id number] [address] [place] [address], [place] [id number] Jan, [facility] [address] [id number] [address] [place] [address], [place] [id number] Dec, [facility] [address] [id number] [address] [place] [address], [place] [id number] Dec, [facility] [address] [id number] [address] [place] [address], [place] [id number] Dec, [facility] [address] [id number] [address] [place] [address], [place] [id number] Nov, [facility] [address] [id number] [address] [place] [address], [place] [id number] Nov, [facility] [address] [id number] [address] [place] [address], [place] [id number] Nov, [facility] [address] [id number] [address] [place] [address], [place] [id number] Oct, [facility] [address] [id number] [address] [place] [address], [place] [id number] Oct, [facility] [address] [id number] [address] [place] [address], [place] [id number] Oct, [facility] [address] [id number] [address] [place] [address], [place] [id number] September, [facility] [address] [id number] [address] [place] [address], [place] [id number] September, [facility] [address] [id number] [address] [place] [address], [place] [id number] September, [facility] [address] [id number] [address] [place] [address], [place] [id number] Aug, [facility] [address] [id number] [address] [place] [address], [place] [id number] Aug, [facility] [address] [id number] [address] [place] [address], [place] [id number] Aug, [facility] [address] [id number] [address] [place] [address], [place] [id number] 16 Aug, 2011 [facility] [address] [id number] [address] [place] [address], [place] [id number] Jul, [facility] [address] [id number] [address] [place] [address], [place] [id number] 21 Jun, 2011 [facility] [address] [id number] [address] [place] [address], [place] [id number] 14 Jun, 2011 [facility] [address] [id number] [address] [place] [address], [place] [id number] 13 Jun, 2011 [facility] [address] [id number] [address] [place] [address], [place] [id number] 07 Jun, 2011 [facility] [address] [id number] [address] [id number] Jun, [facility] [address] [id number] [address] [place] [address], [place] [id number] May, [facility] [address] [id number] [address] [place] [address], [place] [id number] May, [facility] [address] [id number] [address] [place] [address], [place] [id number] May, [facility] [address] [id number] [address] [place] [id number] May, [facility] [address] [id number] [address] [place] [address], [place] [id number] Apr, [facility] [address] [id number] [address] [place] [address], [place] [id number] Apr, [facility] [address] [id number] [address] [place] [address], [place] [id number] Apr, [facility] [address] [id number] [address] [place] [address], [place] [id number] Mar, [facility] [address] [id number] [address] [place] [id number] Mar, [facility] [address] [id number] [address] [place] [id number] Mar, [facility] [address] [id number] [address] [place] [id number] Feb, [facility] [address] [id number] [address] [place] [id number] Feb, [facility] [address] [id number] [address] [place] [address], [place] [id number] Feb, [facility] [address] [id number] [address] [place] [id number] Nov, [facility] [address] [id number] [address] [place] [address], [place] [id number] September, [facility] [address] [id number] [address] [place] [id number] Aug, [facility] [address] [id number] [address] [place] [place] [id number] Jul, [facility] [address] [id number] [address] [place] [phone] May, [facility] [address] [facility] [id number] [address] [place] [phone] Apr, [facility] [address] [id number] [address] [place] [phone] Apr, [facility] [address] [facility] [id number] [address] [place] [id number] Apr, [facility] [address] [facility] [id number] [address] [place] [phone] Apr, [facility] [address] [facility] [id number] [address] [place] [phone] Apr, IMMUNIZATIONS No Known Immunizations SOCIAL HISTORY Never Assessed REASON FOR VISIT COPD note/Rx PLAN OF CARE VITAL SIGNS MEDICATIONS Medication Instructions Dosage Frequency Start Date End Date Duration S tatus Anoro Ellipta 62.5-25 MCG/INH Inhalation Once a day 1 puff 24h Oct, 30 days Active Qvar 80 MCG/ACT Inhalation Twice a day 1 puff 12h Oct, 30 days Active RESULTS No Results PROCEDURES [...]
--- OUTSIDE RECORDS SUMMARY | 2019-07-17 11:03 | XMS REPORT ---
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 Name Role Phone WHIT GANDHI Unavailable PROBLEMS Type Condition ICD9-CM Code [id number] Code Onset Dates Condition S tatus SNOMED Code Problem Back pain M54.9 Active 581728933 Problem Diabetes E11.9 Active 95284426 Problem GERD (gastroesophageal reflux disease) K21.9 Active 869868871 Problem Hypertension I10 Active 6001900 3 Problem Anxiety disorder, unspecified F41.9 Active 787379561 Problem Other bipolar disorder F31.89 Active 58131518 Problem Fibromyalgia M79.7 Active 7894092 7 Problem Panic disorder with agoraphobia F40.01 Active 34784443 Problem Panlobular emphysema J43.1 Active 2152871 Problem Chronic obstructive pulmonary disease, unspecified J44.9 Active 62112132 Problem Akathisia G25.71 Active 048985684 Problem Lumbago with sciatica, left side M54.42 Active 800039600 Problem Migraine without aura and without status migrain osus, not intractable G43.009 Active 581145047 Problem Fibrocystic disease of right breast N60.11 Active 11226857 Problem Fibrocystic disease of left breast N60.12 Active 03110493 Problem Slow transit constipation K59.01 Acti ve 60269992 Problem Essential tremor G25.0 Active 609 342727 Problem Bipolar 1 disorder, depressed, moderate F31.32 Active 41308283 Problem Other chronic pain G89.29 Active 8 7270345 Problem Lumbago with sciatica, right side M54.41 Active 551332944 Problem Irritable bowel syndrome with constipation K58.1 Active 051515208 Problem Arthritis M19.90 Active 5769272 Problem Schizoaffective disorder, bipolar type F25.0 Active 53972564 Problem Irritable bowel syndrome with both constipation and diarrh ea K58.2 Active 34980719 Problem Attention deficit hyperactiv ity disorder (ADHD), predominantly inattentive type F90.0 Active 81494212 Problem Bipolar I disorder with depression F31.9 Active 76054444 Problem Chronic post-traumatic stress disorder (PTSD) F43. 12 Active 162246741 Problem Bipolar affective disorder, remission status unspecified F31.9 Active 41031771 Problem Mild persistent asthma without complication J45.30 Active 049099625 Problem Moderate persistent asthma without complication J4 5.40 Active 429272908 Problem Acute non-recurrent maxillary sinusitis J01.00 Active 88455110 Problem Bipolar 1 disorder, depressed, partial remission F 31.75 Active 37309348 ALLERGIES No Information ENCOUNTERS Encounter Location Date Diagnosis [facility] [address] [id number] [address] [place] [phone] Mar, [facility] [address] [id number] [address] [place] [phone] Dec, [place] [address] [id number] [address] [place] [phone] Dec, Cerebrovascular accident (CV A) due to occlusion of right cerebellar artery I63.541 [facility] [address] [id number] [address] [place] [phone] Dec, [facility] [address] [id number] [address] [place] [phone] Dec, [facility] [address] [id number] [address] [place] [id number] Nov, Bipolar 1 disorder, depresse d, partial remission F31.75 and Panic disorder with agoraphobia F40.01 [facility] [address] [id number] [address] [place] [phone] Nov, Panlobular emphysema J43.1 [facility] [address] [id number] [address] [place] [phone] Nov, Cerebrovascular accident (CV A) due to occlusion of right cerebellar artery I63.541 and Acute non-recurrent maxillary sinusitis J01.00 [facility] [address] [id number] [address] [place] [phone] Nov, Panlobular emphysema J43.1 [facility] [address] [id number] [address] [place] [id number] Nov, [facility] [address] [id number] [address] [place] [phone] Nov, [facility] [address] [id number] [address] [place] [phone] Nov, [facility] [address] [id number] [address] [place] [phone] Nov, [facility] [address] [id number] [address] [place] [id number] Nov, [facility] [address] [facility] [id number] [address] [place] [id number] Nov, [facility] [address] [facility] [id number] [address] [place] [phone] Nov, [facility] [address] [facility] [id number] [address] [place] [id number] Nov, Mild persistent asthma witho ut complication J45.30 and Irritable bowel syndrome with both constipation and diarrhea K58.2 [facility] [address] [facility] [id number] [address] [place] [phone] Nov, [facility] [address] [facility] [id number] [address] [place] [phone] Oct, [facility] [address] [facility] [id number] [address] [place] [id number] Oct, [facility] [address] [facility] [id number] [address] [place] [phone] Oct, Type 2 diabetes mellitus wit h diabetic neuropathy, unspecified whether long term care pharmacist insulin use E11.40 ; Diabetes E11.9 ; Slow transit constipation K59.01 ; Edema of both legs R60.0 and Dysfunction of right eustachian tube H69.81 [facility] [address] [id number] [address] [place] [id number] Oct, Frequent headaches R51 [facility] [address] [id number] [address] [place] [id number] Oct, [facility] [address] [id number] [address] [place] [phone] Oct, [facility] [address] [id number] [address] [place] [phone] Oct, [facility] [address] [id number] [address] [place] [id number] Oct, [facility] [address] [id number] [address] [place] [phone] Oct, [facility] [address] [id number] [address] [place] [id number] Oct, [facility] [address] [id number] [address] [place] [phone] Oct, [facility] [address] [id number] [address] [place] [phone] Oct, [facility] [address] [id number] [address] [place] [phone] September, Frequent headaches R51 [facility] [address] [facility] [id number] [address] [place] [id number] September, Bilateral otitis media with effusion H65.93 ; Dizziness R42 and Essential tremor G25.0 [facility] [address] [id number] [address] [place] [phone] September, Chronic obstructive pulmonar y disease, unspecified COPD type J44.9 [facility] [address] [facility] [id number] [address] [place] [id number] September, Chronic obstructive pulmonar y disease, unspecified COPD type J44.9 [facility] [address] [facility] [id number] [address] [place] [id number] 10 May, 2018 Migraine without aura and wi thout status migrainosus, not intractable G43.009 [facility] [address] [facility] [id number] [address] [place] [phone] September, [facility] [address] [facility] [id number] [address] [place] [phone] September, [facility] [address] [place] [id number] [address] [place] [phone] September, [facility] [address] [place] [id number] [place] [phone] September, Frequent headaches R51 [facility] [address] [facility] [id number] [address] [place] [phone] Aug, [facility] [address] [place] [id number] [place] [address] Aug, Breast mass, right N63.10 [place] [address] [place] [id number] [place] [phone] Aug, Breast lump N63.0 [facility] [address] [place] [id number] [address] [place] [phone] Aug, [facility] [address] [id number] Aug, Bipolar affective disorder, remission status unspecified F31.9 and Diabetes E11.9 [facility] [address] [address] Aug, Diabetes E11.9 ; Schizoaffec tive disorder, bipolar type F25.0 ; Pharyngitis due to other organism J02.8 ; Panlobular emphysema J43.1 and Irritable bowel syndrome with both constipation and diarrhea K58.2 [facility] [address] [place] [id number] [address] [place] [phone] Aug, Abnormal mammogram R92.8 [facility] [address] [place] [id number] [address] [place] [phone] Aug, [facility] [address] [facility] [id number] [address] [place] [id number] Aug, Bipolar 1 disorder, depresse d, moderate F31.32 ; Panic disorder with agoraphobia F40.01 and Chronic post-traumatic stress disorder (PTSD) F43.12 [facility] [address] [facility] [id number] [address] [place] [id number] Aug, [facility] [address] [facility] [id number] [address] [place] [phone] Aug, [facility] [address] [facility] [id number] [address] [place] [phone] Aug, [facility] [address] [facility] [id number] [address] [place] [id number] Jul, [facility] [address] [facility] [id number] [address] [place] [phone] Jul, Mild persistent asthma witho ut complication J45.30 [facility] [address] [facility] [id number] [address] [place] [phone] Jul, Mild persistent asthma witho ut complication J45.30 [facility] [address] [facility] [id number] [address] [place] [id number] 15 Jul, 2017 Bipolar affective disorder, remission status unspecified F31.9 ; Diabetes E11.9 and Irritable bowel syndrome with constipation K58.1 [facility] [address] [facility] [id number] [address] [place] [phone] Jul, [facility] [address] [facility] [id number] [address] [place] [id number] Jul, [facility] [address] [facility] [id number] [address] [place] [id number] 08 Jul, 2017 Frequent headaches R51 [facility] [address] [facility] [id number] [address] [place] [id number] 07 Jul, 2017 [facility] [address] [facility] [id number] [address] [place] [phone] Jul, [facility] [address] [place] [id number] [address] [place] [phone] Jul, [facility] [address] [id number] Jul, Frequent headaches R51 ; Fib rocystic disease of left breast N60.12 ; Fibrocystic disease of right breast N60.11 and Diabetes E11.9 [facility] [address] [address] Jul, [facility] [address] [address] Jul, [facility] [address] [id number] 21 Jun, 2017 Exudative tonsillitis J03.90 [place] [address] [id number] 20 Jun, 2017 [facility] [address] [place] [id number] [address] [place] [id number] 19 Jun, 2017 [facility] [address] [address] 15 Jun, 2017 Mild persistent asthma witho ut complication J45.30 ; Chronic obstructive pulmonary disease, unspecified COPD type J44.9 and Exudative tonsillitis J03.90 [place] [address] [place] [id number] [address] [place] [id number] 13 Jun, 2017 Encounter for immunization Z 23 [facility] [address] [place] [id number] [address] [place] [phone] Jun, [facility] [address] [address] Jun, [facility] [address] [place] [id number] [address] [place] [id number] 09 Jun, 2017 [facility] [address] [place] [address] 06 Jun, 2017 Tonsillitis J03.90 [place] [address] [id number] 05 Jun, 2017 [place] [address] [id number] 03 Jun, 2017 Acute non-recurrent maxillar y sinusitis J01.00 [place] [address] [address] 02 Jun, 2017 [place] [address] [address] May, [place] [address] [address] May, [place] [address] [address] May, GERD (gastroesophageal reflu x disease) K21.9 [place] [address] [address] May, Migraine without aura and wi thout status migrainosus, not intractable G43.009 [place] [address] [address] May, [place] [address] [address] May, [place] [address] [address] May, Panlobular emphysema J43.1 a nd Acute non-recurrent maxillary sinusitis J01.00 [place] [address] [address] 04 May, 2017 Bipolar 1 disorder, depresse d, moderate F31.32 ; Panic disorder with agoraphobia F40.01 and Akathisia G25.71 [place] [address] [phone] Apr, [facility] [address] [id number] [address] [place] [phone] Apr, [facility] [address] [facility] [id number] [address] [place] [id number] Apr, Acute non-recurrent maxillar y sinusitis J01.00 [facility] [address] [facility] [id number] [address] [place] [phone] 07 Apr, 2017 Panlobular emphysema J43.1 [facility] [address] [id number] [address] [place] [phone] Apr, [facility] [address] [facility] [id number] [address] [place] [phone] 04 Apr, 2017 Sore throat J02.9 and Exudat minoo tonsillitis J03.90 [facility] [address] [facility] [id number] [address] [place] [phone] 17 Mar, 2017 [facility] [address] [facility] [id number] [address] [place] [phone] 15 Mar, 2017 Acute non-recurrent maxillar y sinusitis J01.00 [facility] [address] [facility] [id number] [address] [place] [id number] 13 Mar, 2017 [facility] [address] [facility] [id number] [address] [place] [phone] 09 Mar, 2017 Panlobular emphysema J43.1 a nd Diabetes E11.9 [facility] [address] [id number] [address] [place] [phone] 06 Mar, 2017 [facility] [address] [facility] [id number] [address] [place] [id number] 24 Feb, 2017 Wheezing R06.2 and Acute rec urrent pansinusitis J01.41 [facility] [address] [facility] [id number] [address] [place] [phone] Feb, [facility] [address] [id number] [address] [place] [id number] 16 Feb, 2017 Acute non-recurrent maxillar y sinusitis J01.00 [facility] [address] [id number] [address] [place] [id number] 16 Feb, 2017 Chronic obstructive pulmonar y disease, unspecified J44.9 [facility] [address] [id number] [address] [place] [id number] 02 Feb, 2017 Hypoxemia R09.02 and Chronic obstructive pulmonary disease, unspecified J44.9 [facility] [address] [id number] [address] [place] [id number] 28 Jan, 2017 Bipolar 1 disorder, depresse d, moderate F31.32 ; Panic disorder with agoraphobia F40.01 ; Chronic post-traumatic stress disorder (PTSD) F43.12 ; Diabetes E11.9 and Moderate persistent asthma without complication J45.40 [place] [address] [facility] [id number] [address] [place] [id number] 22 Jan, 2017 [facility] [address] [id number] [address] [place] [id number] 19 Jan, 2017 Acute non-recurrent maxillar y sinusitis J01.00 [facility] [address] [id number] [address] [place] [id number] 18 Jan, 2017 [facility] [address] [id number] [address] [place] [id number] 18 Jan, 2017 [facility] [address] [id number] [address] [place] [id number] 12 Jan, 2017 Moderate persistent [facility] J45.40 and Hypoxemia R09.02 [facility] [address] [id number] [address] [place] [id number] 11 Jan, 2017 Moderate persistent asthma w [facility] complication J45.40 and Hypoxemia R09.02 [facility] [address] [id number] [address] [place] [id number] 11 Jan, 2017 [facility] [address] [id number] [address] [place] [phone] Dec, Acute non-recurrent maxillar y sinusitis J01.00 [facility] [address] [id number] [address] [place] [phone] Dec, Chronic obstructive pulmonar y disease, unspecified J44.9 [facility] [address] [id number] [address] [place] [id number] Dec, [facility] [address] [id number] [address] [place] [id number] Dec, Mild persistent asthma witho ut complication J45.30 and Other chronic pain G89.29 [facility] [address] [id number] [address] [place] [phone] Nov, [facility] [address] [id number] [address] [place] [id number] Nov, Acute non-recurrent maxillar y sinusitis J01.00 [facility] [address] [id number] [address] [place] [id number] Nov, [facility] [address] [id number] [address] [place] [phone] Nov, [facility] [address] [id number] [address] [place] [phone] Oct, [facility] [address] [id number] [address] [place] [id number] Oct, Bipolar 1 disorder, depresse d, partial remission F31.75 ; Panic disorder with agoraphobia F40.01 and Chronic post-traumatic stress disorder (PTSD) F43.12 [facility] [address] [id number] [address] [place] [id number] Oct, Acute non-recurrent maxillar y sinusitis J01.00 [facility] [address] [id number] [address] [place] [id number] Oct, [facility] [address] [id number] [address] [place] [id number] Oct, Diabetes E11.9 [facility] [address] [id number] [address] [place] [id number] September, Diabetes E11.9 [facility] [address] [facility] [id number] [address] [place] [id number] September, Diabetes E11.9 and Sinus tac hycardia R00.0 [facility] [address] [id number] [address] [place] [phone] September, [facility] [address] [id number] [address] [place] [id number] September, [facility] [address] [facility] [id number] [address] [place] [id number] Aug, Diabetes E11.9 and Lumbago w ith sciatica, right side M54.41 [facility] [address] [facility] [id number] [address] [place] [phone] Aug, [facility] [address] [facility] [id number] [address] [place] [id number] Jul, Bipolar 1 disorder, depresse d, moderate F31.32 ; Panic disorder with agoraphobia F40.01 and Chronic post-traumatic stress disorder (PTSD) F43.12 [facility] [address] [facility] [id number] [address] [place] [phone] Jul, Sore throat J02.9 [facility] [address] [facility] [id number] [address] [place] [id number] Jul, [facility] [address] [facility] [id number] [address] [place] [phone] Jul, [facility] [address] [facility] [id number] [address] [place] [id number] Jul, [facility] [address] [facility] [place] [id number] [address] [place] [id number] Jul, [facility] [address] [facility] [id number] [address] [place] [id number] Jul, Sore throat J02.9 and Pharyn gitis, unspecified etiology J02.9 [facility] [address] [facility] [id number] [address] [place] [id number] Jun, [facility] [address] [facility] [place] [id number] [address] [place] [id number] 23 Jun, 2016 Diabetes E11.9 [facility] [address] [facility] [id number] [address] [place] [id number] Jun, [facility] [address] [facility] [id number] [address] [place] [id number] Jun, [facility] [address] [facility] [id number] [address] [place] [id number] Jun, [facility] [address] [facility] [id number] [address] [place] [id number] Jun, [facility] [address] [facility] [id number] [address] [place] [id number] Jun, [facility] [address] [facility] [id number] [address] [place] [id number] Jun, [facility] [address] [facility] [facility] [place] [id number] [address] [place] [phone] Jun, [facility] [address] [facility] [place] [id number] [address] [place] [phone] Jun, [facility] [address] [facility] [id number] [address] [place] [phone] May, Diabetes E11.9 ; Bipolar I d isorder with depression F31.9 ; Other chronic pain G89.29 ; Acute recurrent maxillary sinusitis J01.01 and Anxiety disorder, unspecified F41.9 [facility] [address] [facility] [place] [id number] [address] [place] [phone] May, [facility] [address] [facility] [place] [id number] [address] [place] [phone] May, Diabetes E11.9 ; Bipolar I d isorder with depression F31.9 ; Anxiety disorder, unspecified F41.9 ; Other chronic pain G89.29 and Acute recurrent maxillary sinusitis J01.01 [facility] [address] [id number] [address] [place] [phone] May, [place] [address] [id number] [address] [place] [phone] May, Attention deficit hyperactiv ity disorder (ADHD), predominantly inattentive type F90.0 [place] [address] [id number] [address] [place] [phone] May, [place] [address] [facility] [place] [id number] [address] [place] [phone] Apr, Attention deficit hyperactiv ity disorder (ADHD), predominantly inattentive type F90.0 and Non-seasonal allergic rhinitis due to other allergic trigger J30.89 [place] [address] [facility] [place] [id number] [address] [place] [phone] 15 Apr, 2016 Bipolar 1 disorder, depresse d, moderate F31.32 ; Panic disorder with agoraphobia F40.01 and Chronic post-traumatic stress disorder (PTSD) F43.12 [place] [address] [facility] [place] [id number] [address] [place] [phone] 06 Apr, 2016 Dental examination Z01.20 [place] [address] [id number] [address] [place] [phone] Mar, [place] [address] [id number] [address] [place] [phone] Mar, [place] [address] [facility] [place] [id number] [address] [place] [phone] Mar, Bipolar I disorder with depr ession F31.9 and Anxiety disorder, unspecified F41.9 [place] [address] [facility] [place] [id number] [address] [place] [phone] Mar, Panic disorder with agorapho syd F40.01 ; Bipolar 1 disorder, depressed, moderate F31.32 and Chronic post-traumatic stress disorder (PTSD) F43.12 [place] [address] [place] [id number] [place] [phone] Mar, [place] [address] [place] [id number] [address] [place] [phone] Mar, Dental caries K02.9 [place] [address] [place] [id number] [place] [phone] 24 Feb, 2016 Lumbago with sciatica, left side M54.42 ; Lumbago with sciatica, right side M54.41 and Other chronic pain G89.29 [place] [address] [place] [id number] [place] [phone] 17 Feb, 2016 [place] [address] [phone] 14 Feb, 2016 [place] [address] [id number] 13 Feb, 2016 Bipolar I disorder with depr ession F31.9 ; PTSD (post-traumatic stress disorder) F43.10 and Mood disorder F39 [place] [address] [place] [id number] [place] [phone] 13 Feb, 2016 [place] [address] [id number] 11 Feb, 2016 Dental examination Z01.20 [place] [address] [place] [id number] [address] [place] [phone] 07 Feb, 2016 [facility] [address] [place] [id number] [address] [place] [phone] 03 Feb, 2016 Acute bronchitis, unspecifie d organism J20.9 [place] [address] [place] [id number] [address] [place] [phone] 26 Jan, 2016 Mood disorder F39 ; Migraine without aura and without status migrainosus, not intractable G43.009 ; Irritable bowel syndrome, unspecified type K58.9 ; Diabetes E11.9 and Encounter for immunization Z23 [facility] [address] [facility] [place] [id number] [address] [place] [phone] Jan, [facility] [address] [facility] [place] [id number] [address] [place] [phone] Jan, [facility] [address] [facility] [place] [id number] [address] [place] [phone] Jan, [facility] [address] [facility] [place] [id number] [address] [place] [phone] Jan, [facility] [address] [facility] [place] [id number] [place] [phone] Jan, [facility] [address] [facility] [place] [id number] [address] [place] [phone] Dec, Bipolar I disorder with depr ession F31.9 ; PTSD (post-traumatic stress disorder) F43.10 and Panic disorder with agoraphobia F40.01 [facility] [address] [place] [id number] [address] [place] [phone] Dec, Chronic obstructive pulmonar y disease, unspecified COPD type J44.9 ; Tremor R25.1 and Anxiety F41.9 [facility] [address] [place] [id number] [address] [place] [id number] Dec, [facility] [address] [place] [id number] [address] [place] [phone] Nov, Tremors of nervous system R2 5.1 and Cramping of feet R25.2 [facility] [address] [facility] [place] [id number] [address] [place] [phone] Nov, [facility] [address] [facility] [place] [id number] [address] [place] [phone] Nov, [facility] [address] [facility] [place] [id number] [address] [place] [phone] Oct, Chronic obstructive pulmonar y disease, unspecified J44.9 [facility] [address] [facility] [place] [id number] [address] [place] [phone] Oct, [facility] [address] [facility] [place] [id number] [address] [place] [phone] Oct, Tremor R25.1 [facility] [address] [facility] [place] [id number] [address] [place] [phone] Oct, Bipolar I disorder with depr ession F31.9 ; Diabetes E11.9 ; PTSD (post-traumatic stress disorder) F43.10 and Panic disorder with agoraphobia F40.01 [place] [address] [facility] [place] [id number] [address] [place] [phone] Oct, Mood disorder F39 [place] [address] [facility] [place] [id number] [address] [place] [phone] September, [place] [address] [place] [id number] [address] [place] [phone] September, Diabetes E11.9 ; Bipolar I d isorder with depression F31.9 ; PTSD (post-traumatic stress disorder) F43.10 and Panic disorder with agoraphobia F40.01 [place] [address] [facility] [place] [id number] [address] [place] [phone] September, Mood disorder F39 ; Schizoaf fective disorder, unspecified type F25.9 ; Arthritis M19.90 ; Tremor R25.1 ; Acute non-recurrent frontal sinusitis J01.10 and Blood in stool K92.1 [facility] [address] [facility] [place] [id number] [address] [place] [phone] September, [place] [address] [facility] [place] [id number] [address] [place] [phone] September, Chronic obstructive pulmonar y disease, unspecified J44.9 [facility] [address] [place] [id number] [address] [place] [phone] September, Diabetes E11.9 [place] [address] [place] [id number] [address] [place] [phone] Aug, Other bipolar disorder F31.8 9 and Anxiety disorder, unspecified F41.9 [facility] [address] [id number] [address] [place] [phone] Aug, [facility] [address] [id number] [address] [place] [phone] Aug, Diabetes E11.9 [facility] [address] [id number] [address] [place] [id number] 18 Aug, 2015 [facility] [address] [id number] [address] [place] [id number] 14 Aug, 2015 Diabetes E11.9 ; Fatigue R53 .83 and Dizziness R42 [facility] [address] [id number] [address] [place] [phone] 13 Aug, 2015 Other bipolar disorder F31.8 9 [facility] [address] [id number] [address] [place] [id number] 07 Aug, 2015 Generalized anxiety disorder F41.1 [facility] [address] [id number] [address] [place] [phone] 07 Aug, 2015 Other bipolar disorder F31.8 9 and Anxiety disorder, unspecified F41.9 [facility] [address] [id number] [address] [place] [phone] 04 Aug, 2015 [facility] [address] [id number] [address] [place] [phone] 29 Jul, 2015 [facility] [address] [id number] [address] [place] [phone] 24 Jul, 2015 [facility] [address] [id number] [address] [place] [phone] 23 Jul, 2015 Bronchitis J40 [facility] [address] [id number] [address] [place] [phone] 22 Jul, 2015 Anxiety disorder F41.9 [facility] [address] [id number] [address] [place] [phone] Jul, Other bipolar disorder F31.8 9 and Anxiety disorder, unspecified F41.9 [facility] [address] [facility] [place] [id number] [address] [place] [phone] Jul, Other bipolar disorder F31.8 9 and Fibromyalgia M79.7 [facility] [address] [facility] [place] [id number] [address] [place] [phone] Jul, [facility] [address] [facility] [place] [id number] [address] [place] [phone] Jul, [facility] [address] [facility] [place] [id number] [address] [place] [phone] Jul, [facility] [address] [facility] [place] [id number] [address] [place] [phone] Jul, Other bipolar disorder F31.8 9 and Anxiety disorder, unspecified F41.9 [facility] [address] [facility] [place] [id number] [address] [place] [phone] Jun, GERD (gastroesophageal reflu x disease) K21.9 [facility] [address] [facility] [place] [id number] [address] [place] [phone] Jun, [facility] [address] [facility] [place] [id number] [address] [place] [phone] May, [facility] [address] [facility] [place] [id number] [address] [place] [phone] May, Diabetes E11.9 ; Back pain M 54.9 ; GERD (gastroesophageal reflux disease) K21.9 ; Hypertension I10 and Peripheral neuropathy G62.9 [facility] [address] [facility] [place] [id number] [address] [place] [phone] Mar, [facility] [address] [facility] [place] [id number] [address] [place] [id number] Mar, [facility] [address] [facility] [place] [id number] [address] [place] [phone] Mar, Acute sinusitis J01.90 and O titis media, left H66.92 [facility] [address] [facility] [place] [id number] [address] [place] [phone] Feb, [facility] [address] [facility] [place] [id number] [address] [place] [phone] Feb, [facility] [address] [facility] [place] [id number] [address] [place] [id number] Feb, [facility] [address] [facility] [place] [id number] [address] [place] [phone] Feb, [facility] [address] [facility] [place] [id number] [address] [place] [phone] Jan, [facility] [address] [facility] [place] [id number] [address] [place] [phone] Jan, Diabetes 250.00 and Back higinio n 724.5 [facility] [address] [place] [id number] [address] [place] [phone] Jan, [facility] [address] [facility] [place] [id number] [address] [place] [phone] Dec, Diabetes 250.00 ; Benign ess ential hypertension 401.1 and Allergic rhinitis 477.9 [facility] [address] [facility] [place] [id number] [address] [place] [phone] Dec, [facility] [address] [facility] [place] [id number] [address] [place] [phone] Dec, [facility] [address] [place] [id number] [address] [place] [id number] Dec, Psychosis 298.9 [facility] [address] [facility] [place] [id number] [address] [place] [phone] Dec, Medication side effect 995.2 0 and Generalized anxiety disorder 300.02 [facility] [address] [facility] [place] [id number] [address] [place] [phone] Dec, Acquired cognitive dysfuncti on 294.9 [facility] [address] [place] [id number] [address] [place] [phone] Dec, [facility] [address] [id number] [address] [place] [phone] Dec, Unspecified myalgia and myos itis 729.1 and Generalized anxiety disorder 300.02 [facility] [address] [id number] [address] [place] [phone] Nov, [facility] [address] [id number] [address] [place] [phone] Nov, [facility] [address] [facility] [place] [id number] [address] [place] [phone] Nov, [facility] [address] [facility] [place] [id number] [address] [place] [phone] Nov, Upper respiratory infection 465.9 and Chronic airway obstruction, not elsewhere classified 496 [facility] [address] [id number] [address] [place] [phone] Nov, Hyponatremia 276.1 [facility] [address] [facility] [place] [id number] [address] [place] [phone] Oct, [facility] [address] [facility] [place] [id number] [address] [place] [phone] Oct, [facility] [address] [facility] [place] [id number] [address] [place] [phone] Oct, [facility] [address] [id number] [address] [place] [phone] Oct, [facility] [address] [facility] [place] [id number] [address] [place] [phone] Oct, Hyponatremia 276.1 [facility] [address] [id number] [address] [place] [phone] Oct, [facility] [address] [facility] [id number] [address] [place] [phone] Oct, [facility] [address] [facility] [id number] [address] [place] [phone] Oct, Generalized anxiety disorder 300.02 [facility] [address] [id number] [address] [place] [phone] Oct, Generalized anxiety disorder 300.02 and Diabetes 250.00 [facility] [address] [id number] [address] [place] [phone] 14 Aug, 2014 [facility] [address] [id number] [address] [place] [phone] Aug, [facility] [address] [id number] [address] [place] [phone] Jul, [facility] [address] [id number] [address] [place] [phone] Jul, [facility] [address] [id number] [address] [place] [phone] Jun, [facility] [address] [id number] [address] [place] [phone] Jun, [facility] [address] [id number] [address] [place] [phone] Jun, [facility] [address] [id number] [address] [place] [id number] Jun, [facility] [address] [id number] [address] [place] [phone] Jun, [facility] [address] [id number] [address] [place] [phone] May, [facility] [address] [id number] [address] [place] [id number] May, [facility] [address] [id number] [address] [place] [phone] Apr, [facility] [address] [id number] [address] [place] [phone] Apr, [facility] [address] [id number] [address] [place] [phone] Apr, [facility] [address] [id number] [address] [place] [address], [place] [id number] Apr, [facility] [address] [id number] [address] [place] [address], [place] [id number] Apr, [facility] [address] [id number] [address] [place] [address], [place] [id number] Apr, [facility] [address] [id number] [address] [place] [address], [place] [id number] Apr, [facility] [address] [id number] [address] [place] [address], [place] [id number] Apr, [facility] [address] [id number] [address] [place] [address], [place] [id number] Feb, [facility] [address] [id number] [address] [place] [address], [place] [id number] Feb, [facility] [address] [id number] [address] [place] [address], [place] [id number] Jan, [facility] [address] [id number] [address] [place] [address], [place] [id number] Jan, [facility] [address] [id number] [address] [place] [address], [place] [id number] Dec, [facility] [address] [id number] [address] [place] [address], [place] [id number] Dec, [facility] [address] [id number] [address] [place] [address], [place] [id number] Dec, [facility] [address] [id number] [address] [place] [address], [place] [id number] Nov, [facility] [address] [id number] [address] [place] [address], [place] [id number] Nov, [facility] [address] [id number] [address] [place] [address], [place] [id number] Nov, [facility] [address] [id number] [address] [place] [address], [place] [id number] Oct, [facility] [address] [id number] [address] [place] [address], [place] [id number] Oct, [facility] [address] [id number] [address] [place] [address], [place] [id number] Oct, [facility] [address] [id number] [address] [place] [address], [place] [id number] September, [facility] [address] [id number] [address] [place] [address], [place] [id number] September, [facility] [address] [id number] [address] [place] [address], [place] [id number] September, [facility] [address] [id number] [address] [place] [address], [place] [id number] Aug, [facility] [address] [id number] [address] [place] [address], [place] [id number] Aug, [facility] [address] [id number] [address] [place] [address], [place] [id number] Aug, [facility] [address] [id number] [address] [place] [address], [place] [id number] 16 Aug, 2011 [facility] [address] [id number] [address] [place] [address], [place] [id number] Jul, [facility] [address] [id number] [address] [place] [address], [place] [id number] 21 Jun, 2011 [facility] [address] [id number] [address] [place] [address], [place] [id number] 14 Jun, 2011 [facility] [address] [id number] [address] [place] [address], [place] [id number] 13 Jun, 2011 [facility] [address] [id number] [address] [place] [address], [place] [id number] 07 Jun, 2011 [facility] [address] [id number] [address] [place] [address] Jun, [facility] [address] [id number] [address] [place] [address], [place] [id number] May, [facility] [address] [id number] [address] [place] [address], [place] [id number] May, [facility] [address] [id number] [address] [place] [address], [place] [id number] May, [facility] [address] [id number] [address] [place] [id number] May, [facility] [address] [id number] [address] [place] [address], [place] [id number] Apr, [facility] [address] [id number] [address] [place] [address], [place] [id number] Apr, [facility] [address] [id number] [address] [place] [address], [place] [id number] Apr, [facility] [address] [id number] [address] [place] [address], [place] [id number] Mar, [facility] [address] [id number] [address] [place] [id number] Mar, [facility] [address] [id number] [address] [place] [id number] Mar, [facility] [address] [id number] [address] [place] [id number] Feb, [facility] [address] [id number] [address] [place] [id number] Feb, [facility] [address] [id number] [address] [place] [address], [place] [id number] Feb, [facility] [address] [id number] [address] [place] [id number] Nov, [facility] [address] [id number] [address] [place] [address], [place] [id number] September, [facility] [facility] [address] [id number] [address] [place] [phone] Aug, [facility] [address] [id number] [address] [place] [phone] Jul, [facility] [address] [facility] [id number] [address] [place] [phone] May, [facility] [address] [facility] [id number] [address] [place] [phone] Apr, [facility] [address] [facility] [id number] [address] [place] [phone] Apr, [facility] [address] [facility] [id number] [address] [place] [phone] Apr, [facility] [address] [facility] [id number] [address] [place] [phone] Apr, [facility] [address] [facility] [id number] [address] [place] [id number] Apr, IMMUNIZATIONS No Known Immunizations SOCIAL HISTORY Never Assessed REASON FOR VISIT COPD inhaler note PLAN OF CARE VITAL SIGNS MEDICATIONS [...]
--- OUTSIDE RECORDS SUMMARY | 2019-07-17 11:03 | XMS REPORT ---
Author Author Sujey GANDHI Organization [facility] Address [address] [place] [address] Care Team Providers Care Curing Finisher Name Role Phone WHIT GANDHI Unavailable PROBLEMS Type Condition ICD9-CM Code GBC30-XX Code Onset Dates Condition S tatus SNOMED Code Problem Back pain M54.9 Active 542020317 Problem Diabetes E11.9 Active 28043129 Problem GERD (gastroesophageal reflux disease) K21.9 Active 598196517 Problem Hypertension I10 Active 9617202 3 Problem Anxiety disorder, unspecified F41.9 Active 188933801 Problem Other bipolar disorder F31.89 Active 37468414 Problem Fibromyalgia M79.7 Active 6702841 7 Problem Panic disorder with agoraphobia F40.01 Active 60538265 Problem Panlobular emphysema J43.1 Active 8116030 Problem Chronic obstructive pulmonary disease, unspecified J44.9 Active 71709882 Problem Akathisia G25.71 Active 227615775 Problem Lumbago with sciatica, left side M54.42 Active 283682904 Problem Migraine without aura and without status migrain osus, not intractable G43.009 Active 101116377 Problem Fibrocystic disease of right breast N60.11 Active 69859698 Problem Fibrocystic disease of left breast N60.12 Active 84565190 Problem Slow transit constipation K59.01 Acti ve 32983704 Problem Essential tremor G25.0 Active 609 630537 Problem Bipolar 1 disorder, depressed, moderate F31.32 Active 03550483 Problem Other chronic pain G89.29 Active 8 9690979 Problem Lumbago with sciatica, right side M54.41 Active 795678779 Problem Irritable bowel syndrome with constipation K58.1 Active 124941369 Problem Arthritis M19.90 Active 2438384 Problem Schizoaffective disorder, bipolar type F25.0 Active 15672267 Problem Irritable bowel syndrome with both constipation and diarrh ea K58.2 Active 19913547 Problem Attention deficit hyperactiv ity disorder (ADHD), predominantly inattentive type F90.0 Active 86302322 Problem Bipolar I disorder with depression F31.9 Active 08068392 Problem Chronic post-traumatic stress disorder (PTSD) F43. 12 Active 262763025 Problem Bipolar affective disorder, remission status unspecified F31.9 Active 10287567 Problem Mild persistent asthma without complication J45.30 Active 473292209 Problem Moderate persistent asthma without complication J4 5.40 Active 626048039 Problem Acute non-recurrent maxillary sinusitis J01.00 Active 55031826 Problem Bipolar 1 disorder, depressed, partial remission F 31.75 Active 80901281 ALLERGIES No Information ENCOUNTERS Encounter Location Date Diagnosis [facility] [address] [id number] [address] [place] [address] Mar, [facility] [address] [id number] [address] [place] [address] Dec, [place] [id number] [id number] [address] [place] [address] Dec, Cerebrovascular accident (CV A) due to occlusion of right cerebellar artery I63.541 [facility] [address] [id number] [address] [place] [id number] Dec, [facility] [address] [id number] [address] [place] [address] Dec, [facility] [address] [id number] [address] [place] [address] Nov, Bipolar 1 disorder, depresse d, partial remission F31.75 and Panic disorder with agoraphobia F40.01 [facility] [address] [id number] [address] [place] [id number] Nov, Panlobular emphysema J43.1 [facility] [address] [id number] [address] [place] [address] Nov, Cerebrovascular accident (CV A) due to occlusion of right cerebellar artery I63.541 and Acute non-recurrent maxillary sinusitis J01.00 [facility] [address] [id number] [address] [place] [address] Nov, Panlobular emphysema J43.1 [facility] [address] [id number] [address] [place] [id number] Nov, [facility] [address] [id number] [address] [place] [address] Nov, [facility] [address] [id number] [address] [place] [id number] Nov, [facility] [address] [id number] [address] [place] [id number] Nov, [facility] [address] [id number] [address] [place] [id number] Nov, [facility] [address] [facility] [id number] [address] [place] [address] Nov, [facility] [address] [facility] [id number] [address] [place] [address] Nov, [facility] [address] [facility] [id number] [address] [place] [address] Nov, Mild persistent asthma witho ut complication J45.30 and Irritable bowel syndrome with both constipation and diarrhea K58.2 [facility] [address] [facility] [id number] [address] [place] [address] Nov, [facility] [address] [facility] [id number] [address] [place] [address] Oct, [facility] [address] [facility] [id number] [address] [place] [address] Oct, [facility] [address] [facility] [id number] [address] [place] [address] Oct, Type 2 diabetes mellitus wit h diabetic neuropathy, unspecified 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 project 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 insulin 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 E11.40 ; Diabetes E11.9 ; Slow transit constipation K59.01 ; Edema of both legs R60.0 and Dysfunction of right eustachian tube H69.81 [facility] [address] [id number] [address] [place] [id number] Oct, Frequent headaches R51 [facility] [address] [id number] [address] [place] [address] Oct, [facility] [address] [id number] [address] [place] [address] Oct, [facility] [address] [id number] [address] [place] [address] Oct, [facility] [address] [id number] [address] [place] [address] Oct, [facility] [address] [id number] [address] [place] [address] Oct, [facility] [address] [id number] [address] [place] [address] Oct, [facility] [address] [id number] [address] [place] [address] Oct, [facility] [address] [id number] [address] [place] [address] Oct, [facility] [address] [id number] [address] [place] [address] September, Frequent headaches R51 [facility] [address] [facility] [id number] [address] [place] [address] September, Bilateral otitis media with effusion H65.93 ; Dizziness R42 and Essential tremor G25.0 [facility] [address] [id number] [address] [place] [address] September, Chronic obstructive pulmonar y disease, unspecified COPD type J44.9 [facility] [address] [facility] [id number] [address] [place] [address] September, Chronic obstructive pulmonar y disease, unspecified COPD type J44.9 [facility] [address] [facility] [id number] [address] [place] [address] 10 May, 2018 Migraine without aura and wi thout status migrainosus, not intractable G43.009 [facility] [address] [facility] [id number] [address] [place] [address] September, [facility] [address] [facility] [id number] [address] [place] [id number] September, [facility] [address] [place] [id number] [address] [place] [id number] September, [facility] [address] [place] [id number] [place] [address] September, Frequent headaches R51 [facility] [address] [facility] [id number] [address] [place] [address] Aug, [facility] [address] [place] [id number] [place] [address] Aug, Breast mass, right N63.10 [place] [address] [place] [id number] [place] [address] Aug, Breast lump N63.0 [facility] [address] [place] [id number] [address] [place] [address] Aug, [facility] [address] [address] Aug, Bipolar affective disorder, remission status unspecified F31.9 and Diabetes E11.9 [facility] [address] [address] Aug, Diabetes E11.9 ; Schizoaffec tive disorder, bipolar type F25.0 ; Pharyngitis due to other organism J02.8 ; Panlobular emphysema J43.1 and Irritable bowel syndrome with both constipation and diarrhea K58.2 [facility] [address] [place] [id number] [address] [place] [address] Aug, Abnormal mammogram R92.8 [facility] [address] [place] [id number] [address] [place] [address] Aug, [facility] [address] [facility] [id number] [address] [place] [address] Aug, Bipolar 1 disorder, depresse d, moderate F31.32 ; Panic disorder with agoraphobia F40.01 and Chronic post-traumatic stress disorder (PTSD) F43.12 [facility] [address] [facility] [id number] [address] [place] [address] Aug, [facility] [address] [facility] [id number] [address] [place] [address] Aug, [facility] [address] [facility] [id number] [address] [place] [address] Aug, [facility] [address] [facility] [id number] [address] [place] [address] Jul, [facility] [address] [facility] [id number] [address] [place] [address] Jul, Mild persistent asthma witho ut complication J45.30 [facility] [address] [facility] [id number] [address] [place] [address] Jul, Mild persistent asthma witho ut complication J45.30 [facility] [address] [facility] [id number] [address] [place] [address] 15 Jul, 2017 Bipolar affective disorder, remission status unspecified F31.9 ; Diabetes E11.9 and Irritable bowel syndrome with constipation K58.1 [facility] [address] [facility] [id number] [address] [place] [address] Jul, [facility] [address] [facility] [id number] [address] [place] [address] Jul, [facility] [address] [facility] [id number] [address] [place] [id number] 08 Jul, 2017 Frequent headaches R51 [facility] [address] [facility] [id number] [address] [place] [id number] 07 Jul, 2017 [facility] [address] [facility] [id number] [address] [place] [address] Jul, [facility] [address] [place] [id number] [address] [place] [address] Jul, [facility] [address] [address] Jul, Frequent headaches R51 ; Fib rocystic disease of left breast N60.12 ; Fibrocystic disease of right breast N60.11 and Diabetes E11.9 [facility] [address] [address] Jul, [facility] [address] [address] Jul, [facility] [address] [address] 21 Jun, 2017 Exudative tonsillitis J03.90 [place] [address] [id number] 20 Jun, 2017 [facility] [address] [place] [id number] [address] [place] [address] 19 Jun, 2017 [facility] [address] [id number] 15 Jun, 2017 Mild persistent asthma witho ut complication J45.30 ; Chronic obstructive pulmonary disease, unspecified COPD type J44.9 and Exudative tonsillitis J03.90 [place] [address] [place] [id number] [address] [place] [address] 13 Jun, 2017 Encounter for immunization Z 23 [facility] [address] [place] [id number] [address] [place] [address] Jun, [facility] [address] [address] Jun, [facility] [address] [place] [id number] [address] [place] [address] 09 Jun, 2017 [facility] [address] [place] [address] 06 Jun, 2017 Tonsillitis J03.90 [place] [address] [address] 05 Jun, 2017 [place] [address] [address] 03 Jun, 2017 Acute non-recurrent maxillar y sinusitis J01.00 [place] [address] [address] 02 Jun, 2017 [place] [address] [address] May, [place] [address] [address] May, [place] [address] [address] May, GERD (gastroesophageal reflu x disease) K21.9 [place] [address] [address] May, Migraine without aura and wi thout status migrainosus, not intractable G43.009 [place] [address] [address] May, [place] [address] [address] May, [place] [address] [address] May, Panlobular emphysema J43.1 a nd Acute non-recurrent maxillary sinusitis J01.00 [place] [address] [address] 04 May, 2017 Bipolar 1 disorder, depresse d, moderate F31.32 ; Panic disorder with agoraphobia F40.01 and Akathisia G25.71 [place] [address] [address] Apr, [facility] [address] [id number] [address] [place] [address] Apr, [facility] [address] [facility] [id number] [address] [place] [address] Apr, Acute non-recurrent maxillar y sinusitis J01.00 [facility] [address] [facility] [id number] [address] [place] [id number] 07 Apr, 2017 Panlobular emphysema J43.1 [facility] [address] [id number] [address] [place] [id number] Apr, [facility] [address] [facility] [id number] [address] [place] [id number] 04 Apr, 2017 Sore throat J02.9 and Exudat minoo tonsillitis J03.90 [facility] [address] [facility] [id number] [address] [place] [address] 17 Mar, 2017 [facility] [address] [facility] [id number] [address] [place] [address] 15 Mar, 2017 Acute non-recurrent maxillar y sinusitis J01.00 [facility] [address] [facility] [id number] [address] [place] [id number] 13 Mar, 2017 [facility] [address] [facility] [id number] [address] [place] [address] 09 Mar, 2017 Panlobular emphysema J43.1 a nd Diabetes E11.9 [facility] [address] [id number] [address] [place] [id number] 06 Mar, 2017 [facility] [address] [facility] [id number] [address] [place] [address] 24 Feb, 2017 Wheezing R06.2 and Acute rec urrent pansinusitis J01.41 [facility] [address] [facility] [id number] [address] [place] [id number] Feb, [facility] [address] [id number] [address] [place] [id number] 16 Feb, 2017 Acute non-recurrent maxillar y sinusitis J01.00 [facility] [address] [id number] [address] [place] [id number] 16 Feb, 2017 Chronic obstructive pulmonar y disease, unspecified J44.9 [facility] [address] [id number] [address] [place] [address] 02 Feb, 2017 Hypoxemia R09.02 and Chronic obstructive pulmonary disease, unspecified J44.9 [facility] [address] [id number] [address] [place] [id number] 28 Jan, 2017 Bipolar 1 disorder, depresse d, moderate F31.32 ; Panic disorder with agoraphobia F40.01 ; Chronic post-traumatic stress disorder (PTSD) F43.12 ; Diabetes E11.9 and Moderate persistent asthma without complication J45.40 [place] [id number] [facility] [id number] [address] [place] [address] 22 Jan, 2017 [facility] [address] [id number] [address] [place] [address] 19 Jan, 2017 Acute non-recurrent maxillar y sinusitis J01.00 [facility] [address] [id number] [address] [place] [address] 18 Jan, 2017 [facility] [address] [id number] [address] [place] [id number] 18 Jan, 2017 [facility] [address] [id number] [address] [place] [id number] 12 Jan, 2017 [facility] J[facility].40 and Hypoxemia R09.02 [facility] [address] [id number] [address] [place] [address] 11 Jan, 2017 Moderate [facility] J45.40 and Hypoxemia R09.02 [facility] [address] [id number] [address] [place] [address] 11 Jan, 2017 [facility] [address] [id number] [address] [place] [address] Dec, Acute non-recurrent maxillar y sinusitis J01.00 [facility] [address] [id number] [address] [place] [address] Dec, Chronic obstructive pulmonar y disease, unspecified J44.9 [facility] [address] [id number] [address] [place] [address] Dec, [facility] [address] [id number] [address] [place] [address] Dec, Mild persistent asthma witho ut complication J45.30 and Other chronic pain G89.29 [facility] [address] [id number] [address] [place] [address] Nov, [facility] [address] [id number] [address] [place] [id number] Nov, Acute non-recurrent maxillar y sinusitis J01.00 [facility] [address] [id number] [address] [place] [id number] Nov, [facility] [address] [id number] [address] [place] [address] Nov, [facility] [address] [id number] [address] [place] [address] Oct, [facility] [address] [id number] [address] [place] [address] Oct, Bipolar 1 disorder, depresse d, partial remission F31.75 ; Panic disorder with agoraphobia F40.01 and Chronic post-traumatic stress disorder (PTSD) F43.12 [facility] [address] [id number] [address] [place] [address] Oct, Acute non-recurrent maxillar y sinusitis J01.00 [facility] [address] [id number] [address] [place] [address] Oct, [facility] [address] [id number] [address] [place] [address] Oct, Diabetes E11.9 [facility] [address] [id number] [address] [place] [address] September, Diabetes E11.9 [facility] [address] [facility] [id number] [address] [place] [address] September, Diabetes E11.9 and Sinus tac hycardia R00.0 [facility] [address] [id number] [address] [place] [id number] September, [facility] [address] [id number] [address] [place] [address] September, [facility] [address] [facility] [id number] [address] [place] [address] Aug, Diabetes E11.9 and Lumbago w ith sciatica, right side M54.41 [facility] [address] [facility] [id number] [address] [place] [id number] Aug, [facility] [address] [facility] [id number] [address] [place] [address] Jul, Bipolar 1 disorder, depresse d, moderate F31.32 ; Panic disorder with agoraphobia F40.01 and Chronic post-traumatic stress disorder (PTSD) F43.12 [facility] [address] [facility] [id number] [address] [place] [address] Jul, Sore throat J02.9 [facility] [address] [facility] [id number] [address] [place] [id number] Jul, [facility] [address] [facility] [id number] [address] [place] [id number] Jul, [facility] [address] [facility] [id number] [address] [place] [address] Jul, [facility] [address] [facility] [id number] [address] [place] [address] Jul, [facility] [address] [facility] [id number] [address] [place] [address] Jul, Sore throat J02.9 and Pharyn gitis, unspecified etiology J02.9 [facility] [address] [facility] [id number] [address] [place] [id number] Jun, [facility] [address] [facility] [id number] [address] [place] [id number] 23 Jun, 2016 Diabetes E11.9 [facility] [address] [facility] [id number] [address] [place] [id number] Jun, [facility] [address] [facility] [id number] [address] [place] [address] Jun, [facility] [address] [facility] [id number] [address] [place] [id number] Jun, [facility] [address] [facility] [id number] [address] [place] [address] Jun, [facility] [address] [facility] [id number] [address] [place] [id number] Jun, [facility] [address] [facility] [id number] [address] [place] [id number] Jun, [facility] [address] [facility] [id number] [address] [place] [address] Jun, [facility] [address] [facility] [id number] [address] [place] [address] Jun, [facility] [address] [facility] [id number] [address] [place] [address] May, Diabetes E11.9 ; Bipolar I d isorder with depression F31.9 ; Other chronic pain G89.29 ; Acute recurrent maxillary sinusitis J01.01 and Anxiety disorder, unspecified F41.9 [facility] [address] [facility] [id number] [address] [place] [id number] May, [facility] [address] [facility] [id number] [address] [place] [phone] May, Diabetes E11.9 ; Bipolar I d isorder with depression F31.9 ; Anxiety disorder, unspecified F41.9 ; Other chronic pain G89.29 and Acute recurrent maxillary sinusitis J01.01 [facility] [address] [id number] [address] [place] [phone] May, [place] [address] [id number] [address] [place] [phone] May, Attention deficit hyperactiv ity disorder (ADHD), predominantly inattentive type F90.0 [place] [address] [id number] [address] [place] [phone] May, [place] [address] [facility] [id number] [address] [place] [phone] Apr, Attention deficit hyperactiv ity disorder (ADHD), predominantly inattentive type F90.0 and Non-seasonal allergic rhinitis due to other allergic trigger J30.89 [place] [address] [facility] [id number] [address] [place] [phone] 15 Apr, 2016 Bipolar 1 disorder, depresse d, moderate F31.32 ; Panic disorder with agoraphobia F40.01 and Chronic post-traumatic stress disorder (PTSD) F43.12 [place] [address] [facility] [id number] [address] [place] [address] 06 Apr, 2016 Dental examination Z01.20 [place] [address] [id number] [address] [place] [address] Mar, [place] [address] [id number] [address] [place] [id number] Mar, [place] [address] [facility] [id number] [address] [place] [id number] Mar, Bipolar I disorder with depr ession F31.9 and Anxiety disorder, unspecified F41.9 [place] [address] [facility] [id number] [address] [place] [id number] Mar, Panic disorder with agorapho syd F40.01 ; Bipolar 1 disorder, depressed, moderate F31.32 and Chronic post-traumatic stress disorder (PTSD) F43.12 [place] [address] [place] [id number] [place] [address] Mar, [place] [address] [place] [id number] [address] [place] [address] Mar, Dental caries K02.9 [place] [address] [place] [id number] [place] [id number] 24 Feb, 2016 Lumbago with sciatica, left side M54.42 ; Lumbago with sciatica, right side M54.41 and Other chronic pain G89.29 [place] [address] [place] [id number] [place] [address] 17 Feb, 2016 [place] [address] [id number] 14 Feb, 2016 [place] [address] [id number] 13 Feb, 2016 Bipolar I disorder with depr ession F31.9 ; PTSD (post-traumatic stress disorder) F43.10 and Mood disorder F39 [place] [address] [place] [id number] [place] [address] 13 Feb, 2016 [place] [address] [address] 11 Feb, 2016 Dental examination Z01.20 [place] [address] [place] [id number] [address] [place] [id number] 07 Feb, 2016 [facility] [address] [place] [id number] [address] [place] [id number] 03 Feb, 2016 Acute bronchitis, unspecifie d organism J20.9 [place] [address] [place] [id number] [address] [place] [id number] 26 Jan, 2016 Mood disorder F39 ; Migraine without aura and without status migrainosus, not intractable G43.009 ; Irritable bowel syndrome, unspecified type K58.9 ; Diabetes E11.9 and Encounter for immunization Z23 [facility] [address] [facility] [id number] [address] [place] [id number] Jan, [facility] [address] [facility] [id number] [address] [place] [address] Jan, [facility] [address] [facility] [id number] [address] [place] [id number] Jan, [facility] [address] [facility] [id number] [address] [place] [address] Jan, [facility] [address] [facility] [id number] [place] [id number] Jan, [facility] [address] [facility] [id number] [address] [place] [address] Dec, Bipolar I disorder with depr ession F31.9 ; PTSD (post-traumatic stress disorder) F43.10 and Panic disorder with agoraphobia F40.01 [facility] [address] [place] [id number] [address] [place] [id number] Dec, Chronic obstructive pulmonar y disease, unspecified COPD type J44.9 ; Tremor R25.1 and Anxiety F41.9 [facility] [address] [place] [id number] [address] [place] [address] Dec, [facility] [address] [place] [id number] [address] [place] [id number] Nov, Tremors of nervous system R2 5.1 and Cramping of feet R25.2 [facility] [address] [facility] [id number] [address] [place] [id number] Nov, [facility] [address] [facility] [id number] [address] [place] [id number] Nov, [facility] [address] [facility] [id number] [address] [place] [address] Oct, Chronic obstructive pulmonar y disease, unspecified J44.9 [facility] [address] [facility] [id number] [address] [place] [address] Oct, [facility] [address] [facility] [id number] [address] [place] [address] Oct, Tremor R25.1 [facility] [address] [facility] [id number] [address] [place] [address] Oct, Bipolar I disorder with depr ession F31.9 ; Diabetes E11.9 ; PTSD (post-traumatic stress disorder) F43.10 and Panic disorder with agoraphobia F40.01 [place] [address] [facility] [id number] [address] [place] [id number] Oct, Mood disorder F39 [place] [address] [facility] [id number] [address] [place] [address] September, [place] [address] [place] [id number] [address] [place] [address] September, Diabetes E11.9 ; Bipolar I d isorder with depression F31.9 ; PTSD (post-traumatic stress disorder) F43.10 and Panic disorder with agoraphobia F40.01 [place] [address] [facility] [id number] [address] [place] [address] September, Mood disorder F39 ; Schizoaf fective disorder, unspecified type F25.9 ; Arthritis M19.90 ; Tremor R25.1 ; Acute non-recurrent frontal sinusitis J01.10 and Blood in stool K92.1 [facility] [address] [facility] [id number] [address] [place] [address] September, [place] [address] [facility] [id number] [address] [place] [address] September, Chronic obstructive pulmonar y disease, unspecified J44.9 [facility] [address] [place] [id number] [address] [place] [address] September, Diabetes E11.9 [place] [address] [place] [id number] [address] [place] [address] Aug, Other bipolar disorder F31.8 9 and Anxiety disorder, unspecified F41.9 [facility] [address] [id number] [address] [place] [address] Aug, [facility] [address] [id number] [address] [place] [address] Aug, Diabetes E11.9 [facility] [address] [id number] [address] [place] [address] 18 Aug, 2015 [facility] [address] [id number] [address] [place] [address] 14 Aug, 2015 Diabetes E11.9 ; Fatigue R53 .83 and Dizziness R42 [facility] [address] [id number] [address] [place] [id number] 13 Aug, 2015 Other bipolar disorder F31.8 9 [facility] [address] [id number] [address] [place] [id number] 07 Aug, 2015 Generalized anxiety disorder F41.1 [facility] [address] [id number] [address] [place] [id number] 07 Aug, 2015 Other bipolar disorder F31.8 9 and Anxiety disorder, unspecified F41.9 [facility] [address] [id number] [address] [place] [id number] 04 Aug, 2015 [facility] [address] [id number] [address] [place] [id number] 29 Jul, 2015 [facility] [address] [id number] [address] [place] [id number] 24 Jul, 2015 [facility] [address] [id number] [address] [place] [address] 23 Jul, 2015 Bronchitis J40 [facility] [address] [id number] [address] [place] [address] 22 Jul, 2015 Anxiety disorder F41.9 [facility] [address] [id number] [address] [place] [address] Jul, Other bipolar disorder F31.8 9 and Anxiety disorder, unspecified F41.9 [facility] [address] [facility] [id number] [address] [place] [address] Jul, Other bipolar disorder F31.8 9 and Fibromyalgia M79.7 [facility] [address] [facility] [id number] [address] [place] [address] Jul, [facility] [address] [facility] [id number] [address] [place] [id number] Jul, [facility] [address] [facility] [id number] [address] [place] [address] Jul, [facility] [address] [facility] [id number] [address] [place] [address] Jul, Other bipolar disorder F31.8 9 and Anxiety disorder, unspecified F41.9 [facility] [address] [facility] [id number] [address] [place] [address] Jun, GERD (gastroesophageal reflu x disease) K21.9 [facility] [address] [facility] [id number] [address] [place] [address] Jun, [facility] [address] [facility] [id number] [address] [place] [id number] May, [facility] [address] [facility] [id number] [address] [place] [address] May, Diabetes E11.9 ; Back pain M 54.9 ; GERD (gastroesophageal reflux disease) K21.9 ; Hypertension I10 and Peripheral neuropathy G62.9 [facility] [address] [facility] [id number] [address] [place] [address] Mar, [facility] [address] [facility] [id number] [address] [place] [address] Mar, [facility] [address] [facility] [id number] [address] [place] [address] Mar, Acute sinusitis J01.90 and O titis media, left H66.92 [facility] [address] [facility] [id number] [address] [place] [address] Feb, [facility] [address] [facility] [id number] [address] [place] [id number] Feb, [facility] [address] [facility] [id number] [address] [place] [id number] Feb, [facility] [address] [facility] [id number] [address] [place] [id number] Feb, [facility] [address] [facility] [id number] [address] [place] [address] Jan, [facility] [address] [facility] [id number] [address] [place] [address] Jan, Diabetes 250.00 and Back higinio n 724.5 [facility] [address] [place] [id number] [address] [place] [address] Jan, [facility] [address] [facility] [id number] [address] [place] [address] Dec, Diabetes 250.00 ; Benign ess ential hypertension 401.1 and Allergic rhinitis 477.9 [facility] [address] [facility] [id number] [address] [place] [id number] Dec, [facility] [address] [facility] [id number] [address] [place] [address] Dec, [facility] [address] [place] [id number] [address] [place] [address] Dec, Psychosis 298.9 [facility] [address] [facility] [id number] [address] [place] [address] Dec, Medication side effect 995.2 0 and Generalized anxiety disorder 300.02 [facility] [address] [facility] [id number] [address] [place] [address] Dec, Acquired cognitive dysfuncti on 294.9 [facility] [address] [place] [id number] [address] [place] [id number] Dec, [facility] [address] [id number] [address] [place] [address] Dec, Unspecified myalgia and myos itis 729.1 and Generalized anxiety disorder 300.02 [facility] [address] [id number] [address] [place] [address] Nov, [facility] [address] [id number] [address] [place] [address] Nov, [facility] [address] [facility] [id number] [address] [place] [address] Nov, [facility] [address] [facility] [id number] [address] [place] [address] Nov, Upper respiratory infection 465.9 and Chronic airway obstruction, not elsewhere classified 496 [facility] [address] [id number] [address] [place] [address] Nov, Hyponatremia 276.1 [facility] [address] [facility] [id number] [address] [place] [address] Oct, [facility] [address] [facility] [id number] [address] [place] [address] Oct, [facility] [address] [facility] [id number] [address] [place] [address] Oct, [facility] [address] [id number] [address] [place] [address] Oct, [facility] [address] [facility] [id number] [address] [place] [address] Oct, Hyponatremia 276.1 [facility] [address] [id number] [address] [place] [address] Oct, [facility] [address] [facility] [id number] [address] [place] [id number] Oct, [facility] [address] [facility] [id number] [address] [place] [address] Oct, Generalized anxiety disorder 300.02 [facility] [address] [id number] [address] [place] [address] Oct, Generalized anxiety disorder 300.02 and Diabetes 250.00 [facility] [address] [id number] [address] [place] [address] 14 Aug, 2014 [facility] [address] [id number] [address] [place] [address] Aug, [facility] [address] [id number] [address] [place] [address] Jul, [facility] [address] [id number] [address] [place] [address] Jul, [facility] [address] [id number] [address] [place] [address] Jun, [facility] [address] [id number] [address] [place] [address] Jun, [facility] [address] [id number] [address] [place] [address] Jun, [facility] [address] [id number] [address] [place] [address] Jun, [facility] [address] [id number] [address] [place] [address] Jun, [facility] [address] [id number] [address] [place] [address] May, [facility] [address] [id number] [address] [place] [id number] May, [facility] [address] [id number] [address] [place] [address] Apr, [facility] [address] [id number] [address] [place] [id number] Apr, [facility] [address] [id number] [address] [place] [id number] Apr, [facility] [address] [id number] [address] [place] [address], [place] [address] Apr, [facility] [address] [id number] [address] [place] [address], [place] [address] Apr, [facility] [address] [id number] [address] [place] [address], [place] [address] Apr, [facility] [address] [id number] [address] [place] [address], [place] [address] Apr, [facility] [address] [id number] [address] [place] [address], [place] [address] Apr, [facility] [address] [id number] [address] [place] [address], [place] [address] Feb, [facility] [address] [id number] [address] [place] [address], [place] [address] Feb, [facility] [address] [id number] [address] [place] [address], [place] [address] Jan, [facility] [address] [id number] [address] [place] [address], [place] [address] Jan, [facility] [address] [id number] [address] [place] [address], [place] [address] Dec, [facility] [address] [id number] [address] [place] [address], [place] [address] Dec, [facility] [address] [id number] [address] [place] [address], [place] [address] Dec, [facility] [address] [id number] [address] [place] [address], [place] [address] Nov, [facility] [address] [id number] [address] [place] [address], [place] [address] Nov, [facility] [address] [id number] [address] [place] [address], [place] [address] Nov, [facility] [address] [id number] [address] [place] [address], [place] [address] Oct, [facility] [address] [id number] [address] [place] [address], [place] [address] Oct, [facility] [address] [id number] [address] [place] [address], [place] [address] Oct, [facility] [address] [id number] [address] [place] [address], [place] [address] September, [facility] [address] [id number] [address] [place] [address], [place] [address] September, [facility] [address] [id number] [address] [place] [address], [place] [address] September, [facility] [address] [id number] [address] [place] [address], [place] [address] Aug, [facility] [address] [id number] [address] [place] [address], [place] [address] Aug, [facility] [address] [id number] [address] [place] [address], [place] [address] Aug, [facility] [address] [id number] [address] [place] [address], [place] [address] 16 Aug, 2011 [facility] [address] [id number] [address] [place] [address], [place] [address] Jul, [facility] [address] [id number] [address] [place] [address], [place] [address] 21 Jun, 2011 [facility] [address] [id number] [address] [place] [address], [place] [address] 14 Jun, 2011 [facility] [address] [id number] [address] [place] [address], [place] [address] 13 Jun, 2011 [facility] [address] [id number] [address] [place] [address], [place] [address] 07 Jun, 2011 [facility] [address] [id number] [place] [address] Jun, [facility] [address] [id number] [address] [place] [address], [place] [address] May, [facility] [address] [id number] [address] [place] [address], [place] [address] May, [facility] [address] [id number] [address] [place] [address], [place] [address] May, [facility] [address] [id number] [address] [place] [address] May, [facility] [address] [id number] [address] [place] [address], [place] [address] Apr, [facility] [address] [id number] [address] [place] [address], [place] [address] Apr, [facility] [address] [id number] [address] [place] [address], [place] [address] Apr, [facility] [address] [id number] [address] [place] [address], [place] [address] Mar, [facility] [address] [id number] [address] [place] [id number] Mar, [facility] [address] [id number] [address] [place] [id number] Mar, [facility] [address] [id number] [address] [place] [id number] Feb, [facility] [address] [id number] [address] [place] [address] Feb, [facility] [address] [id number] [address] [place] [address], [place] [address] Feb, [facility] [address] [id number] [address] [place] [id number] Nov, [facility] [address] [id number] [address] [place] [address], [place] [address] September, [facility] [address] [id number] [address] [place] [id number] Aug, [facility] [address] [id number] [address] [place] [id number] Jul, [facility] [address] [id number] [address] [place] [id number] May, [facility] [address] [id number] [address] [place] [id number] Apr, [facility] [address] [id number] [address] [place] [id number] Apr, [facility] [address] [id number] [address] [place] [id number] Apr, [facility] [address] [id number] [address] [place] [phone] Apr, [facility] [address] [facility] [id number] [address] [place] [phone] Apr, IMMUNIZATIONS No Known Immunizations SOCIAL HISTORY Never Assessed REASON FOR VISIT Med reconciliation/[facility] note PLAN OF CARE VITAL SIGNS MEDICATIONS Medication Instructions Dosage Frequency Start Date End Date Duration S tatus Ibuprofen 600 MG TAKE ONE TABLET BY MOUTH THREE TIMES DAILY 33 Active Breo Ellipta 200-25 MCG/INH Inhalation Once a day 1 puff 24h 15 Oct, 2017 Jan, 30 days Active Propranolol HCl 20 mg Orally Twice a day 1 tablet 12h September, 30 day(s) Active Diclofenac Sodium 1 % Transdermal Four times a day 2-4- grams to affected areas 6h Jun, 30 days Active Insulin Pen Needle 32G X 6 MM as directed 24h Oct, Active Calcium 600 + D 600-200 MG-UNIT Active Gabapentin 800 MG Orally Three times a day 1 tablet 8h 18 Jul, 2015 Active Nexium 40 mg 1 capsule 24h Active Flonase 50 mcg/act 1 spray in each nostril 12h Apr, Active Metformin HCl 1000 MG Orally Twice a day 1 tablet with meals 12h Aug, 30 day(s) Active Gaviscon 80-14.2 MG Orally 4 times a day 4 tablet 6h Active MiraLax - Orally 3 times a day until you have a BM then Reduce to once daily. 17 grams mixed with 8 oz of fluid 30 days Active Atorvastatin Calcium 10 MG Orally Once a day 1 tablet 24h Active Glucosamine 1000 MG Orally Once a day 2 capsules 24h Active Aspir-81 81 MG Orally Once a day 1 tablet 24h Active Sudafed 30 MG Orally every 6 hrs 1 tablet as needed 6h September, Active Multivitamin Adult - Act minoo Singulair 10 mg Orally Once a day 1 tablet in the evening 24h Oct, 30 day(s) Active Metoprolol Tartrate 50 mg Orally Twice a day TAKE ONE TABLE T BY MOUTH TWICE DAILY WITH FOOD 12h Active Anoro Ellipta 62.5-25 MCG/INH Inhalation Once a day 1 puff 24h Oct, Jan, 30 days Active Amlodipine Besylate 5 MG Orally Once a day 1 tablet 24h Active Milton 7.5-325 MG Orally 3 times a day 1 tablet as needed 8h Oct, 28 days Active Xopenex 1.25 MG/3ML Inhalation 4 times a day prn 3 ml Dec, 30 days Active Ventolin HFA 108 (90 Base) MCG/ACT Inhalation every 4 hrs 2 puffs a s needed 4h Dec, Active Dicyclomine HCl 20 mg Orally Four times a day 1 tablet 6h 18 A , 2017 30 day(s) Active Lamictal 100 mg Orally 2 times a day for depression 1 tablet September, Active Trazodone HCl 100 mg Orally for sleep 1 tablet at bedtime Jan Active Lorazepam 2 MG Orally in the AM and noon and 4pm 1 tablet Jul, 30 days Active Lisinopril 30 MG Orally Once a day 1 tablet 24h Active Adderall XR 20 mg Orally Once a day for depression 1 capsule in the morning Oct, 28 days Active Vpvgcyslzu-ASOE-Qjocmrsa 50-325-40 MG Orally 3 times a day 1 cap yg as needed 8h Jun, Active Clonidine HCl 0.1 MG 1 tablet 8h Ac tive BusPIRone HCl 15 mg Orally 3 times a day for anxiety 1 tablet Jan, Active Guaifenesin 400 mg Orally every 4 hrs 1 tablet 4h Active Benztropine Mesylate 0.5 MG Orally 3 times a day-Q AM, 4pm and bedtime for restlessness 1 tablet Mar, Active Ondansetron 4 MG Orally every 8 hrs PRN 1 tablet on the t ongue and allow to dissolve Apr, 30 days Active Levemir FlexTouch 100 UNIT/ML Subcutaneous Once a day 7 units 24h September, 30 days Active Baclofen 20 MG Orally Three times a day 1 tablet with food or milk 8h 30 Active Nebulizer 1 as directed Jul, Act minoo Loxapine Succinate 10 mg Orally twice a day for mood 1 capsule Active Cetirizine HCl 10 mg Orally Once a day 1 tablet 24h Apr, 30 day(s) Active RESULTS No Results PROCEDURES No Known [...]
--- OUTSIDE RECORDS SUMMARY | 2019-07-17 11:03 | XMS REPORT ---
Author Author Sujey GANDHI Organization [facility] Address [address] [place] [address] Care Team Providers Care Home Care Manager Name Role Phone WHIT GANDHI Unavailable PROBLEMS Type Condition ICD9-CM Code FLR04-GK Code Onset Dates Condition S tatus SNOMED Code Problem Back pain M54.9 Active 358807646 Problem Diabetes E11.9 Active 37808022 Problem GERD (gastroesophageal reflux disease) K21.9 Active 973802131 Problem Hypertension I10 Active 9663203 3 Problem Anxiety disorder, unspecified F41.9 Active 368482676 Problem Other bipolar disorder F31.89 Active 82843524 Problem Fibromyalgia M79.7 Active 9566329 7 Problem Panic disorder with agoraphobia F40.01 Active 43123320 Problem Panlobular emphysema J43.1 Active 5599492 Problem Chronic obstructive pulmonary disease, unspecified J44.9 Active 96740506 Problem Akathisia G25.71 Active 109833236 Problem Lumbago with sciatica, left side M54.42 Active 779234422 Problem Migraine without aura and without status migrain osus, not intractable G43.009 Active 789295711 Problem Fibrocystic disease of right breast N60.11 Active 92401298 Problem Fibrocystic disease of left breast N60.12 Active 90180269 Problem Slow transit constipation K59.01 Acti ve 85413052 Problem Essential tremor G25.0 Active 609 306022 Problem Bipolar 1 disorder, depressed, moderate F31.32 Active 65711958 Problem Other chronic pain G89.29 Active 8 9366931 Problem Lumbago with sciatica, right side M54.41 Active 387126863 Problem Irritable bowel syndrome with constipation K58.1 Active 203323552 Problem Arthritis M19.90 Active 4359481 Problem Schizoaffective disorder, bipolar type F25.0 Active 91382299 Problem Irritable bowel syndrome with both constipation and diarrh ea K58.2 Active 67991633 Problem Attention deficit hyperactiv ity disorder (ADHD), predominantly inattentive type F90.0 Active 10284362 Problem Bipolar I disorder with depression F31.9 Active 48536436 Problem Chronic post-traumatic stress disorder (PTSD) F43. 12 Active 465500224 Problem Bipolar affective disorder, remission status unspecified F31.9 Active 87205946 Problem Mild persistent asthma without complication J45.30 Active 923524461 Problem Moderate persistent asthma without complication J4 5.40 Active 696533090 Problem Acute non-recurrent maxillary sinusitis J01.00 Active 60401784 Problem Bipolar 1 disorder, depressed, partial remission F 31.75 Active 57886328 ALLERGIES No Information ENCOUNTERS Encounter Location Date Diagnosis [place] [address] [address] [facility] [id number] [address] [place] [phone] Mar, [place] [address] [address] [facility] [id number] [address] [place] [phone] Dec, [place] [address] [address] [facility] [id number] [address] [place] [phone] Dec, [facility] [address] [facility] [id number] [address] [place] [phone] Dec, [place] [address] [address] [facility] [id number] [address] [place] [id number] Nov, Bipolar 1 disorder, depresse d, partial remission F31.75 and Panic disorder with agoraphobia F40.01 [facility] [address] [facility] [id number] [address] [place] [phone] Nov, Panlobular emphysema J43.1 [facility] [address] [facility] [id number] [address] [place] [id number] Nov, Cerebrovascular accident (CV A) due to occlusion of right cerebellar artery I63.541 and Acute non-recurrent maxillary sinusitis J01.00 [facility] [address] [id number] [address] [place] [phone] Nov, Panlobular emphysema J43.1 [facility] [address] [facility] [id number] [address] [place] [id number] Nov, [facility] [address] [id number] [address] [place] [phone] Nov, [facility] [address] [id number] [address] [place] [phone] Nov, [facility] [address] [facility] [id number] [address] [place] [phone] Nov, [facility] [address] [id number] [address] [place] [id number] Nov, [facility] [address] [id number] [address] [place] [id number] Nov, [facility] [address] [facility] [id number] [address] [place] [phone] Nov, [facility] [address] [facility] [id number] [address] [place] [id number] Nov, Mild persistent asthma witho ut complication J45.30 and Irritable bowel syndrome with both constipation and diarrhea K58.2 [facility] [address] [facility] [id number] [address] [place] [id number] Nov, [facility] [address] [facility] [id number] [address] [place] [phone] Oct, [facility] [address] [facility] [id number] [address] [place] [id number] Oct, [facility] [address] [facility] [id number] [address] [place] [id number] Oct, Type 2 diabetes mellitus wit h diabetic neuropathy, unspecified whether long term care administrator insulin use E11.40 ; Diabetes E11.9 ; Slow transit constipation K59.01 ; Edema of both legs R60.0 and Dysfunction of right eustachian tube H69.81 [facility] [address] [facility] [id number] [address] [place] [id number] Oct, Frequent headaches R51 [facility] [address] [facility] [id number] [address] [place] [phone] Oct, [facility] [address] [id number] [address] [place] [id number] Oct, [facility] [address] [id number] [address] [place] [phone] Oct, [facility] [address] [facility] [id number] [address] [place] [phone] Oct, [facility] [address] [id number] [address] [place] [phone] Oct, [facility] [address] [id number] [address] [place] [phone] Oct, [facility] [address] [id number] [address] [place] [phone] Oct, [facility] [address] [facility] [id number] [address] [place] [phone] Oct, [facility] [address] [facility] [id number] [address] [place] [phone] September, Frequent headaches R51 [facility] [address] [facility] [id number] [address] [place] [phone] September, Bilateral otitis media with effusion H65.93 ; Dizziness R42 and Essential tremor G25.0 [facility] [address] [facility] [id number] [address] [place] [id number] September, Chronic obstructive pulmonar y disease, unspecified COPD type J44.9 [facility] [address] [facility] [id number] [address] [place] [id number] September, Chronic obstructive pulmonar y disease, unspecified COPD type J44.9 [facility] [address] [facility] [id number] [address] [place] [id number] September, Migraine without aura and wi thout status migrainosus, not intractable G43.009 [facility] [address] [facility] [id number] [address] [place] [phone] September, [facility] [address] [facility] [id number] [address] [place] [phone] September, [facility] [address] [facility] [id number] [address] [place] [phone] September, [facility] [address] [facility] [id number] [address] [place] [phone] September, Frequent headaches R51 [facility] [address] [facility] [id number] [address] [place] [id number] Aug, [facility] [address] [facility] [id number] [address] [place] [id number] Aug, Breast mass, right N63.10 [place] [address] [address] [place] [id number] [address] [place] [id number] Aug, Breast lump N63.0 [place] [address] [address] [place] [id number] [address] [place] [phone] Aug, [facility] [id number] [place] [id number] Aug, Bipolar affective disorder, remission status unspecified F31.9 and Diabetes E11.9 [place] [address] [address] [place] [id number] [address] [place] [phone] Aug, Diabetes E11.9 ; Schizoaffec tive disorder, bipolar type F25.0 ; Pharyngitis due to other organism J02.8 ; Panlobular emphysema J43.1 and Irritable bowel syndrome with both constipation and diarrhea K58.2 [place] [address] [address] [place] [id number] [address] [place] [phone] Aug, Abnormal mammogram R92.8 [place] [address] [address] [place] [id number] [address] [place] [phone] Aug, [place] [address] [address] [place] [id number] [address] [place] [id number] Aug, Bipolar 1 disorder, depresse d, moderate F31.32 ; Panic disorder with agoraphobia F40.01 and Chronic post-traumatic stress disorder (PTSD) F43.12 [facility] [address] [id number] [address] [place] [id number] Aug, [facility] [address] [facility] [id number] [address] [place] [phone] Aug, [facility] [address] [facility] [id number] [address] [place] [phone] Aug, [facility] [address] [facility] [id number] [address] [place] [id number] Jul, [facility] [address] [facility] [id number] [address] [place] [id number] Jul, Mild persistent asthma witho ut complication J45.30 [facility] [address] [facility] [id number] [address] [place] [id number] Jul, Mild persistent asthma witho ut complication J45.30 [facility] [address] [facility] [id number] [address] [place] [id number] 15 Jul, 2017 Bipolar affective disorder, remission status unspecified F31.9 ; Diabetes E11.9 and Irritable bowel syndrome with constipation K58.1 [facility] [address] [facility] [id number] [address] [place] [id number] Jul, [facility] [address] [facility] [id number] [address] [place] [id number] Jul, [facility] [address] [facility] [id number] [address] [place] [id number] Jul, Frequent headaches R51 [facility] [address] [facility] [id number] [address] [place] [id number] 07 Jul, 2017 [facility] [address] [facility] [id number] [address] [place] [id number] Jul, [facility] [address] [facility] [id number] [address] [place] [id number] Jul, [facility] [address] [id number] 05 Jul, 2017 Frequent headaches R51 ; Fib rocystic disease of left breast N60.12 ; Fibrocystic disease of right breast N60.11 and Diabetes E11.9 [place] [address] [id number] Jul, [place] [address] [id number] Jul, [place] [address] [id number] 21 Jun, 2017 Exudative tonsillitis J03.90 [place] [address] [id number] 20 Jun, 2017 [place] [address] [address] 19 Jun, 2017 [place] [address] [address] 15 Jun, 2017 Mild persistent asthma witho ut complication J45.30 ; Chronic obstructive pulmonary disease, unspecified COPD type J44.9 and Exudative tonsillitis J03.90 [place] [address] [id number] 13 Jun, 2017 Encounter for immunization Z 23 [place] [address] [address] Jun, [place] [address] [phone] Jun, [place] [address] [address] 09 Jun, 2017 [facility] [address] [id number] 06 Jun, 2017 Tonsillitis J03.90 [place] [address] [address] 05 Jun, 2017 [facility] [address] [facility] [id number] [address] [place] [id number] 03 Jun, 2017 Acute non-recurrent maxillar y sinusitis J01.00 [facility] [address] [facility] [id number] [address] [place] [id number] 02 Jun, 2017 [facility] [address] [address] May, [facility] [address] [place] [id number] [place] [phone] May, [facility] [address] [id number] May, GERD (gastroesophageal reflu x disease) K21.9 [place] [address] [id number] May, Migraine without aura and wi thout status migrainosus, not intractable G43.009 [facility] [address] [place] [id number] [address] [place] [id number] May, [facility] [address] [id number] May, [facility] [address] [id number] May, Panlobular emphysema J43.1 a nd Acute non-recurrent maxillary sinusitis J01.00 [facility] [address] [address] May, Bipolar 1 disorder, depresse d, moderate F31.32 ; Panic disorder with agoraphobia F40.01 and Akathisia G25.71 [facility] [address] [place] [id number] [address] [place] [phone] Apr, [facility] [address] [address] Apr, [facility] [address] [id number] [address] [place] [phone] 13 Apr, 2017 Acute non-recurrent maxillar y sinusitis J01.00 [facility] [address] [id number] [address] [place] [id number] 07 Apr, 2017 Panlobular emphysema J43.1 [facility] [address] [id number] [address] [place] [id number] 04 Apr, 2017 [facility] [address] [id number] [address] [place] [id number] 04 Apr, 2017 Sore throat J02.9 and Exudat minoo tonsillitis J03.90 [facility] [address] [id number] [address] [place] [id number] 17 Mar, 2017 [facility] [address] [facility] [id number] [address] [place] [id number] 15 Mar, 2017 Acute non-recurrent maxillar y sinusitis J01.00 [facility] [address] [id number] [address] [place] [id number] 13 Mar, 2017 [facility] [address] [facility] [id number] [address] [place] [id number] 09 Mar, 2017 Panlobular emphysema J43.1 a nd Diabetes E11.9 [facility] [address] [facility] [id number] [address] [place] [phone] Mar, [facility] [address] [id number] [address] [place] [id number] Feb, Wheezing R06.2 and Acute rec urrent pansinusitis J01.41 [facility] [address] [facility] [id number] [address] [place] [id number] Feb, [facility] [address] [facility] [id number] [address] [place] [id number] Feb, Acute non-recurrent maxillar y sinusitis J01.00 [facility] [address] [facility] [id number] [address] [place] [id number] 16 Feb, 2017 Chronic obstructive pulmonar y disease, unspecified J44.9 [facility] [address] [id number] [address] [place] [id number] Feb, Hypoxemia R09.02 and Chronic obstructive pulmonary disease, unspecified J44.9 [facility] [address] [facility] [id number] [address] [place] [id number] 28 Jan, 2017 Bipolar 1 disorder, depresse d, moderate F31.32 ; Panic disorder with agoraphobia F40.01 ; Chronic post-traumatic stress disorder (PTSD) F43.12 ; Diabetes E11.9 and Moderate persistent asthma without complication J45.40 [facility] [address] [id number] [address] [place] [phone] Jan, [place] [address] [id number] [address] [place] [id number] Jan, Acute non-recurrent maxillar y sinusitis J01.00 [facility] [address] [id number] [address] [place] [id number] 18 Jan, 2017 [facility] [address] [id number] [address] [place] [id number] Jan, [facility] [address] [id number] [address] [place] [id number] Jan, Moderate persistent asthma w [facility] complication J45.40 and Hypoxemia R09.02 [facility] [address] [id number] [address] [place] [address] Jan, Moderate persistent asthma w ithout complication J45.40 and Hypoxemia R09.02 [facility] [address] [id number] [address] [place] [id number] Jan, [facility] [address] [id number] [address] [place] [phone] Dec, Acute non-recurrent maxillar y sinusitis J01.00 [facility] [address] [id number] [address] [place] [id number] Dec, Chronic obstructive pulmonar y disease, unspecified J44.9 [facility] [address] [id number] [address] [place] [phone] Dec, [facility] [address] [facility] [id number] [address] [place] [id number] Dec, Mild persistent asthma witho ut complication J45.30 and Other chronic pain G89.29 [facility] [address] [id number] [address] [place] [id number] Nov, [facility] [address] [id number] [address] [place] [id number] Nov, Acute non-recurrent maxillar y sinusitis J01.00 [facility] [address] [facility] [id number] [address] [place] [phone] Nov, [facility] [address] [facility] [id number] [address] [place] [id number] Nov, [facility] [address] [facility] [id number] [address] [place] [id number] Oct, [facility] [address] [facility] [id number] [address] [place] [phone] Oct, Bipolar 1 disorder, depresse d, partial remission F31.75 ; Panic disorder with agoraphobia F40.01 and Chronic post-traumatic stress disorder (PTSD) F43.12 [facility] [address] [facility] [id number] [address] [place] [id number] Oct, Acute non-recurrent maxillar y sinusitis J01.00 [facility] [address] [facility] [id number] [address] [place] [phone] Oct, [facility] [address] [facility] [id number] [address] [place] [id number] Oct, Diabetes E11.9 [facility] [address] [facility] [id number] [address] [place] [address] September, Diabetes E11.9 [facility] [address] [id number] [address] [place] [id number] September, Diabetes E11.9 and Sinus tac hycardia R00.0 [facility] [address] [id number] [address] [place] [id number] September, [facility] [address] [facility] [id number] [address] [place] [id number] September, [facility] [address] [facility] [id number] [address] [place] [id number] Aug, Diabetes E11.9 and Lumbago w ith sciatica, right side M54.41 [facility] [address] [facility] [id number] [address] [place] [phone] Aug, [facility] [address] [place] [id number] [address] [place] [id number] Jul, Bipolar 1 disorder, depresse d, moderate F31.32 ; Panic disorder with agoraphobia F40.01 and Chronic post-traumatic stress disorder (PTSD) F43.12 [facility] [address] [facility] [id number] [address] [place] [id number] Jul, Sore throat J02.9 [facility] [address] [facility] [id number] [address] [place] [id number] Jul, [facility] [address] [facility] [id number] [address] [place] [id number] Jul, [facility] [address] [facility] [id number] [address] [place] [id number] Jul, [facility] [address] [facility] [id number] [address] [place] [id number] Jul, [facility] [address] [facility] [id number] [address] [place] [id number] Jul, Sore throat J02.9 and Pharyn gitis, unspecified etiology J02.9 [facility] [address] [id number] [address] [place] [id number] Jun, [facility] [address] [id number] [address] [place] [id number] Jun, Diabetes E11.9 [facility] [address] [id number] [address] [place] [id number] Jun, [facility] [address] [id number] [address] [place] [phone] Jun, [facility] [address] [id number] [address] [place] [id number] Jun, [facility] [address] [id number] [address] [place] [phone] Jun, [facility] [address] [id number] [address] [place] [id number] Jun, [facility] [address] [id number] [address] [place] [id number] Jun, [facility] [address] [id number] [address] [place] [phone] Jun, [facility] [address] [id number] [address] [place] [id number] Jun, [facility] [address] [id number] [address] [place] [id number] May, Diabetes E11.9 ; Bipolar I d isorder with depression F31.9 ; Other chronic pain G89.29 ; Acute recurrent maxillary sinusitis J01.01 and Anxiety disorder, unspecified F41.9 [facility] [address] [id number] [address] [place] [id number] May, [facility] [address] [id number] [address] [place] [id number] May, Diabetes E11.9 ; Bipolar I d isorder with depression F31.9 ; Anxiety disorder, unspecified F41.9 ; Other chronic pain G89.29 and Acute recurrent maxillary sinusitis J01.01 [facility] [id number] [id number] [address] [place] [id number] May, [facility] [address] [id number] [address] [place] [id number] May, Attention deficit hyperactiv ity disorder (ADHD), predominantly inattentive type F90.0 [facility] [address] [address] [facility] [id number] [address] [place] [id number] May, [facility] [address] [id number] [address] [place] [id number] Apr, Attention deficit hyperactiv ity disorder (ADHD), predominantly inattentive type F90.0 and Non-seasonal allergic rhinitis due to other allergic trigger J30.89 [facility] [address] [address] [facility] [id number] [address] [place] [id number] 15 Apr, 2016 Bipolar 1 disorder, depresse d, moderate F31.32 ; Panic disorder with agoraphobia F40.01 and Chronic post-traumatic stress disorder (PTSD) F43.12 [facility] [place] [address] [address] [facility] [id number] [address] [place] [id number] 06 Apr, 2016 Dental examination Z01.20 [facility] [address] [facility] [id number] [address] [place] [phone] Mar, [place] [address] [facility] [id number] [address] [place] [phone] Mar, [place] [address] [facility] [id number] [address] [place] [phone] Mar, Bipolar I disorder with depr ession F31.9 and Anxiety disorder, unspecified F41.9 [place] [address] [facility] [id number] [address] [place] [phone] 08 Mar, 2016 Panic disorder with agorapho syd F40.01 ; Bipolar 1 disorder, depressed, moderate F31.32 and Chronic post-traumatic stress disorder (PTSD) F43.12 [place] [address] [id number] [address] [place] [phone] Mar, [facility] [address] [id number] [address] [place] [phone] Mar, Dental caries K02.9 [facility] [address] [facility] [id number] [address] [place] [id number] 24 Feb, 2016 Lumbago with sciatica, left side M54.42 ; Lumbago with sciatica, right side M54.41 and Other chronic pain G89.29 [facility] [address] [id number] [address] [place] [phone] 17 Feb, 2016 [place] [address] [facility] [id number] [place] [id number] 14 Feb, 2016 [place] [address] [facility] [id number] [place] [id number] 13 Feb, 2016 Bipolar I disorder with depr ession F31.9 ; PTSD (post-traumatic stress disorder) F43.10 and Mood disorder F39 [place] [id number] [facility] [id number] [address] [place] [phone] 13 Feb, 2016 [place] [address] [facility] [id number] [place] [phone] 11 Feb, 2016 Dental examination Z01.20 [facility] [address] [facility] [id number] [address] [place] [phone] 07 Feb, 2016 [facility] [address] [id number] [address] [place] [id number] 03 Feb, 2016 Acute bronchitis, unspecifie d organism J20.9 [facility] [address] [id number] [address] [place] [phone] 26 Jan, 2016 Mood disorder F39 ; Migraine without aura and without status migrainosus, not intractable G43.009 ; Irritable bowel syndrome, unspecified type K58.9 ; Diabetes E11.9 and Encounter for immunization Z23 [facility] [address] [place] [id number] [address] [place] [phone] Jan, [facility] [address] [id number] [address] [place] [phone] Jan, [facility] [address] [id number] [address] [place] [phone] Jan, [facility] [address] [facility] [id number] [address] [place] [phone] Jan, [facility] [address] [facility] [id number] [address] [place] [phone] Jan, [facility] [address] [facility] [id number] [address] [place] [phone] Dec, Bipolar I disorder with depr ession F31.9 ; PTSD (post-traumatic stress disorder) F43.10 and Panic disorder with agoraphobia F40.01 [facility] [address] [facility] [id number] [address] [place] [id number] Dec, Chronic obstructive pulmonar y disease, unspecified COPD type J44.9 ; Tremor R25.1 and Anxiety F41.9 [facility] [address] [facility] [id number] [address] [place] [phone] Dec, [facility] [address] [facility] [id number] [address] [place] [phone] Nov, Tremors of nervous system R2 5.1 and Cramping of feet R25.2 [facility] [address] [facility] [id number] [address] [place] [phone] Nov, [facility] [address] [facility] [id number] [address] [place] [phone] Nov, [facility] [address] [facility] [id number] [address] [place] [phone] Oct, Chronic obstructive pulmonar y disease, unspecified J44.9 [facility] [address] [facility] [id number] [address] [place] [phone] Oct, [facility] [address] [facility] [id number] [address] [place] [phone] Oct, Tremor R25.1 [place] [address] [facility] [id number] [address] [place] [phone] Oct, Bipolar I disorder with depr ession F31.9 ; Diabetes E11.9 ; PTSD (post-traumatic stress disorder) F43.10 and Panic disorder with agoraphobia F40.01 [place] [address] [place] [id number] [place] [phone] Oct, Mood disorder F39 [place] [address] [place] [id number] [address] [place] [phone] September, [place] [address] [id number] September, Diabetes E11.9 ; Bipolar I d isorder with depression F31.9 ; PTSD (post-traumatic stress disorder) F43.10 and Panic disorder with agoraphobia F40.01 [place] [address] [id number] September, Mood disorder F39 ; Schizoaf fective disorder, unspecified type F25.9 ; Arthritis M19.90 ; Tremor R25.1 ; Acute non-recurrent frontal sinusitis J01.10 and Blood in stool K92.1 [place] [id number] [place] [phone] September, [place] [address] [place] [id number] [address] [place] [phone] September, Chronic obstructive pulmonar y disease, unspecified J44.9 [place] [address] [place] [id number] [address] [place] [phone] September, Diabetes E11.9 [place] [address] [place] [id number] [place] [phone] Aug, Other bipolar disorder F31.8 9 and Anxiety disorder, unspecified F41.9 [place] [address] [place] [id number] [place] [phone] Aug, [facility] [address] [id number] [address] [place] [phone] Aug, Diabetes E11.9 [facility] [address] [id number] [address] [place] [id number] 18 Aug, 2015 [facility] [address] [facility] [id number] [address] [place] [id number] 14 Aug, 2015 Diabetes E11.9 ; Fatigue R53 .83 and Dizziness R42 [facility] [address] [id number] [address] [place] [phone] 13 Aug, 2015 Other bipolar disorder F31.8 9 [facility] [address] [facility] [id number] [address] [place] [phone] 07 Aug, 2015 Generalized anxiety disorder F41.1 [facility] [address] [facility] [id number] [address] [place] [phone] 07 Aug, 2015 Other bipolar disorder F31.8 9 and Anxiety disorder, unspecified F41.9 [facility] [address] [id number] [address] [place] [phone] Aug, [facility] [address] [facility] [id number] [address] [place] [phone] Jul, [facility] [address] [facility] [id number] [address] [place] [phone] Jul, [facility] [address] [facility] [id number] [address] [place] [phone] Jul, Bronchitis J40 [facility] [address] [facility] [id number] [address] [place] [phone] Jul, Anxiety disorder F41.9 [facility] [address] [facility] [id number] [address] [place] [phone] Jul, Other bipolar disorder F31.8 9 and Anxiety disorder, unspecified F41.9 [facility] [address] [facility] [id number] [address] [place] [phone] 18 Jul, 2015 Other bipolar disorder F31.8 9 and Fibromyalgia M79.7 [facility] [address] [id number] Jul, [facility] [address] [place] [id number] [place] [phone] Jul, [facility] [address] [id number] Jul, [facility] [address] [id number] Jul, Other bipolar disorder F31.8 9 and Anxiety disorder, unspecified F41.9 [facility] [address] [id number] Jun, GERD (gastroesophageal reflu x disease) K21.9 [facility] [address] [phone] Jun, [facility] [address] [id number] May, [facility] [address] [address] May, Diabetes E11.9 ; Back pain M 54.9 ; GERD (gastroesophageal reflux disease) K21.9 ; Hypertension I10 and Peripheral neuropathy G62.9 [facility] [address] [phone] Mar, [facility] [address] [id number] Mar, [place] [address] [id number] Mar, Acute sinusitis J01.90 and O titis media, left H66.92 [facility] [address] [place] [id number] [address] [place] [phone] Feb, [place] [address] [place] [id number] [address] [place] [phone] Feb, [facility] [address] [id number] [address] [place] [phone] Feb, [facility] [address] [facility] [id number] [address] [place] [id number] Feb, [facility] [address] [facility] [id number] [address] [place] [phone] Jan, [facility] [address] [facility] [id number] [address] [place] [phone] Jan, Diabetes 250.00 and Back higinio n 724.5 [facility] [address] [facility] [id number] [address] [place] [id number] Jan, [facility] [address] [facility] [id number] [address] [place] [address] Dec, Diabetes 250.00 ; Benign ess ential hypertension 401.1 and Allergic rhinitis 477.9 [facility] [address] [facility] [id number] [address] [place] [id number] Dec, [facility] [address] [facility] [id number] [address] [place] [id number] Dec, [facility] [address] [facility] [id number] [address] [place] [id number] Dec, Psychosis 298.9 [facility] [address] [facility] [id number] [address] [place] [phone] Dec, Medication side effect 995.2 0 and Generalized anxiety disorder 300.02 [facility] [address] [facility] [id number] [address] [place] [phone] Dec, Acquired cognitive dysfuncti on 294.9 [facility] [address] [facility] [id number] [address] [place] [phone] Dec, [facility] [address] [facility] [id number] [address] [place] [phone] Dec, Unspecified myalgia and myos itis 729.1 and Generalized anxiety disorder 300.02 [facility] [address] [id number] [address] [place] [phone] Nov, [facility] [address] [facility] [id number] [address] [place] [phone] Nov, [facility] [address] [facility] [id number] [address] [place] [phone] Nov, [facility] [address] [facility] [id number] [address] [place] [phone] Nov, Upper respiratory infection 465.9 and Chronic airway obstruction, not elsewhere classified 496 [facility] [address] [facility] [id number] [address] [place] [phone] Nov, Hyponatremia 276.1 [facility] [address] [facility] [id number] [address] [place] [phone] Oct, [facility] [address] [facility] [id number] [address] [place] [phone] Oct, [facility] [address] [facility] [id number] [address] [place] [phone] Oct, [facility] [address] [facility] [id number] [address] [place] [id number] Oct, [facility] [address] [facility] [id number] [address] [place] [phone] Oct, Hyponatremia 276.1 [facility] [address] [facility] [id number] [address] [place] [id number] Oct, [facility] [address] [facility] [id number] [address] [place] [id number] Oct, [facility] [address] [facility] [id number] [address] [place] [id number] Oct, Generalized anxiety disorder 300.02 [facility] [address] [facility] [id number] [address] [place] [id number] Oct, Generalized anxiety disorder 300.02 and Diabetes 250.00 [facility] [address] [id number] [address] [place] [address], [place] [address] Aug, [facility] [address] [id number] [address] [place] [id number] Aug, [facility] [address] [id number] [address] [place] [address], [place] [id number] Jul, [facility] [address] [id number] [address] [place] [phone] Jul, [facility] [address] [id number] [address] [place] [address], [place] [address] Jun, [facility] [address] [id number] [address] [place] [phone] Jun, [facility] [address] [id number] [address] [place] [address], [place] [id number] Jun, [facility] [address] [id number] [address] [place] [address], [place] [address] Jun, [facility] [address] [id number] [address] [place] [address], [place] [id number] Jun, [facility] [address] [id number] [address] [place] [address], [place] [address] May, [facility] [address] [id number] [address] [place] [address], [place] [address] May, [facility] [address] [id number] [address] [place] [phone] Apr, [facility] [address] [id number] [address] [place] [phone] Apr, [facility] [address] [id number] [address] [place] [phone] Apr, [facility] [address] [id number] [address] [place] [phone] Apr, [facility] [address] [id number] [address] [place] [address], [place] [address] Apr, [facility] [address] [id number] [address] [place] [address], [place] [id number] Apr, [facility] [address] [id number] [address] [place] [address], [place] [address] Apr, [facility] [address] [id number] [address] [place] [address], [place] [id number] Apr, [facility] [address] [id number] [address] [place] [address], [place] [id number] Feb, [facility] [address] [id number] [address] [place] [address], [place] [address] Feb, [facility] [address] [id number] [address] [place] [address], [place] [address] Jan, [facility] [address] [id number] [address] [place] [address], [place] [id number] Jan, [facility] [address] [id number] [address] [place] [address], [place] [address] Dec, [facility] [address] [id number] [address] [place] [address], [place] [id number] Dec, [facility] [address] [id number] [address] [place] [address], [place] [id number] Dec, [facility] [address] [id number] [address] [place] [address], [place] [phone] Nov, [facility] [address] [id number] [address] [place] [address], [place] [address] Nov, [facility] [address] [id number] [address] [place] [address], [place] [id number] Nov, [facility] [address] [id number] [address] [place] [address], [place] [id number] Oct, [facility] [address] [id number] [address] [place] [address], [place] [address] Oct, [facility] [address] [id number] [address] [place] [address], [place] [address] Oct, [facility] [address] [id number] [address] [place] [address], [place] [address] September, [facility] [address] [id number] [address] [place] [address], [place] [address] September, [facility] [address] [id number] [address] [place] [address], [place] [address] September, [facility] [address] [id number] [address] [place] [address], [place] [address] Aug, [facility] [address] [id number] [address] [place] [address], [place] [address] Aug, [facility] [address] [id number] [address] [place] [address], [place] [address] Aug, [facility] [address] [id number] [address] [place] [address], [place] [id number] 16 Aug, 2011 [facility] [address] [id number] [address] [place] [address], [place] [address] Jul, [facility] [address] [id number] [address] [place] [address], [place] [address] Jun, [facility] [address] [id number] [address] [place] [address], [place] [id number] 14 Jun, 2011 [facility] [address] [id number] [address] [place] [address], [place] [address] 13 Jun, 2011 [facility] [address] [id number] [address] [place] [address], [place] [id number] 07 Jun, 2011 [facility] [address] [id number] [address] [place] [address], [place] [id number] 03 Jun, 2011 [facility] [address] [id number] [address] [place] [address], [place] [address] 13 May, 2011 [facility] [address] [id number] [address] [place] [address], [place] [id number] 10 May, 2011 [facility] [address] [id number] [address] [place] [address], [place] [address] May, [facility] [address] [id number] [address] [place] [address], [place] [address] May, [facility] [address] [id number] [address] [place] [address], [place] [address] Apr, [facility] [address] [id number] [address] [place] [address], [place] [address] Apr, [facility] [address] [id number] [address] [place] [address], [place] [address] Apr, [facility] [address] [id number] [address] [place] [address], [place] [address] Mar, [facility] [address] [id number] [address] [place] [address], [place] [address] Mar, [facility] [address] [id number] [address] [place] [address], [place] [address] Mar, [facility] [address] [id number] [address] [place] [address], [place] [address] Feb, [facility] [address] [id number] [address] [place] [address], [place] [id number] 13 Feb, 2011 [facility] [address] [id number] [address] [place] [address], [place] [address] 13 Feb, 2011 [facility] [address] [id number] [address] [place] [address], [place] [phone] Nov, [facility] [address] [id number] [address] [place] [address], [place] [phone] 16 Sep, 2010 [facility] [address] [id number] [address] [place] [address], [place] [phone] Aug, [facility] [address] [id number] [address] [place] [address], [place] [phone] Jul, [facility] [address] [facility] [id number] [address] [place] [phone] May, [facility] [address] [facility] [id number] [address] [place] [phone] Apr, [facility] [address] [facility] [id number] [address] [place] [phone] Apr, [facility] [address] [facility] [id number] [address] [place] [phone] Apr, [facility] [address] [facility] [id number] [address] [place] [phone] Apr, [facility] [address] [facility] [id number] [address] [place] [phone] Apr, IMMUNIZATIONS No Known Immunizations SOCIAL HISTORY Never Assessed REASON FOR VISIT DM shoe note PLAN OF CARE VITAL SIGNS MEDICATIONS [...]
--- OUTSIDE RECORDS SUMMARY | 2019-07-17 11:04 | XMS REPORT ---
Author Author Sujey GANDHI Organization [facility] Address [address] [place] [address] Care Team Providers Care Territory Manager Name Role Phone WHIT GANDHI Unavailable PROBLEMS Type Condition ICD9-CM Code [id number] Code Onset Dates Condition S tatus SNOMED Code Problem Back pain M54.9 Active 840802560 Problem Diabetes E11.9 Active 07629508 Problem GERD (gastroesophageal reflux disease) K21.9 Active 258063737 Problem Hypertension I10 Active 4006401 3 Problem Anxiety disorder, unspecified F41.9 Active 106519649 Problem Other bipolar disorder F31.89 Active 75945304 Problem Fibromyalgia M79.7 Active 8456644 7 Problem Panic disorder with agoraphobia F40.01 Active 97150808 Problem Panlobular emphysema J43.1 Active 4886990 Problem Chronic obstructive pulmonary disease, unspecified J44.9 Active 63932698 Problem Akathisia G25.71 Active 742662313 Problem Lumbago with sciatica, left side M54.42 Active 223607497 Problem Migraine without aura and without status migrain osus, not intractable G43.009 Active 768069683 Problem Fibrocystic disease of right breast N60.11 Active 31451736 Problem Fibrocystic disease of left breast N60.12 Active 85608085 Problem Slow transit constipation K59.01 Acti ve 28263113 Problem Essential tremor G25.0 Active 609 765533 Problem Bipolar 1 disorder, depressed, moderate F31.32 Active 62097018 Problem Other chronic pain G89.29 Active 8 5081835 Problem Lumbago with sciatica, right side M54.41 Active 651598448 Problem Irritable bowel syndrome with constipation K58.1 Active 512696734 Problem Arthritis M19.90 Active 2145224 Problem Schizoaffective disorder, bipolar type F25.0 Active 23498064 Problem Irritable bowel syndrome with both constipation and diarrh ea K58.2 Active 35287614 Problem Attention deficit hyperactiv ity disorder (ADHD), predominantly inattentive type F90.0 Active 74779290 Problem Bipolar I disorder with depression F31.9 Active 91176533 Problem Chronic post-traumatic stress disorder (PTSD) F43. 12 Active 533659427 Problem Bipolar affective disorder, remission status unspecified F31.9 Active 20613889 Problem Mild persistent asthma without complication J45.30 Active 283126818 Problem Moderate persistent asthma without complication J4 5.40 Active 583455769 Problem Acute non-recurrent maxillary sinusitis J01.00 Active 42603365 Problem Bipolar 1 disorder, depressed, partial remission F 31.75 Active 30829556 ALLERGIES No Information ENCOUNTERS Encounter Location Date Diagnosis [place] [address] [facility] [id number] [address] [place] [address] Mar, [place] [address] [facility] [id number] [address] [place] [address] Dec, [place] [address] [facility] [id number] [address] [place] [address] Dec, [facility] [address] [facility] [id number] [address] [place] [address] Dec, [place] [address] [facility] [id number] [address] [place] [address] Nov, Bipolar 1 disorder, depresse d, partial remission F31.75 and Panic disorder with agoraphobia F40.01 [facility] [address] [facility] [id number] [address] [place] [address] Nov, Panlobular emphysema J43.1 [facility] [address] [facility] [id number] [address] [place] [address] Nov, Cerebrovascular accident (CV A) due to occlusion of right cerebellar artery I63.541 and Acute non-recurrent maxillary sinusitis J01.00 [facility] [address] [id number] [address] [place] [address] Nov, Panlobular emphysema J43.1 [facility] [address] [facility] [id number] [address] [place] [address] Nov, [facility] [address] [id number] [address] [place] [address] Nov, [facility] [address] [id number] [address] [place] [address] Nov, [facility] [address] [facility] [id number] [address] [place] [address] Nov, [facility] [address] [id number] [address] [place] [address] Nov, [facility] [address] [id number] [address] [place] [phone] Nov, [facility] [address] [facility] [id number] [address] [place] [address] Nov, [facility] [address] [facility] [id number] [address] [place] [address] Nov, Mild persistent asthma witho ut complication J45.30 and Irritable bowel syndrome with both constipation and diarrhea K58.2 [facility] [address] [facility] [id number] [address] [place] [address] Nov, [facility] [address] [facility] [id number] [address] [place] [address] Oct, [facility] [address] [facility] [id number] [address] [place] [address] Oct, [facility] [address] [facility] [id number] [address] [place] [address] Oct, Type 2 diabetes mellitus wit h diabetic neuropathy, 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 ; Diabetes E11.9 ; Slow transit constipation K59.01 ; Edema of both legs R60.0 and Dysfunction of right eustachian tube H69.81 [facility] [address] [facility] [id number] [address] [place] [address] Oct, Frequent headaches R51 [facility] [address] [facility] [id number] [address] [place] [address] Oct, [facility] [address] [id number] [address] [place] [id number] Oct, [facility] [address] [id number] [address] [place] [address] Oct, [facility] [address] [facility] [id number] [address] [place] [address] Oct, [facility] [address] [id number] [address] [place] [address] Oct, [facility] [address] [id number] [address] [place] [address] Oct, [facility] [address] [id number] [address] [place] [address] Oct, [facility] [address] [facility] [id number] [address] [place] [address] Oct, [facility] [address] [facility] [id number] [address] [place] [address] September, Frequent headaches R51 [facility] [address] [facility] [id number] [address] [place] [address] September, Bilateral otitis media with effusion H65.93 ; Dizziness R42 and Essential tremor G25.0 [facility] [address] [facility] [id number] [address] [place] [address] September, Chronic obstructive pulmonar y disease, unspecified COPD type J44.9 [facility] [address] [facility] [id number] [address] [place] [address] September, Chronic obstructive pulmonar y disease, unspecified COPD type J44.9 [facility] [address] [facility] [id number] [address] [place] [address] September, Migraine without aura and wi thout status migrainosus, not intractable G43.009 [facility] [address] [facility] [id number] [address] [place] [address] September, [facility] [address] [facility] [id number] [address] [place] [address] September, [facility] [address] [facility] [id number] [address] [place] [address] September, [facility] [address] [facility] [id number] [address] [place] [address] September, Frequent headaches R51 [facility] [address] [facility] [id number] [address] [place] [address] Aug, [facility] [address] [facility] [id number] [address] [place] [address] Aug, Breast mass, right N63.10 [place] [address] [place] [id number] [address] [place] [address] Aug, Breast lump N63.0 [place] [address] [address] [place] [id number] [address] [place] [address] Aug, [facility] [id number] [place] [address] Aug, Bipolar affective disorder, remission status unspecified F31.9 and Diabetes E11.9 [place] [address] [place] [id number] [address] [place] [address] Aug, Diabetes E11.9 ; Schizoaffec tive disorder, bipolar type F25.0 ; Pharyngitis due to other organism J02.8 ; Panlobular emphysema J43.1 and Irritable bowel syndrome with both constipation and diarrhea K58.2 [place] [address] [place] [id number] [address] [place] [address] Aug, Abnormal mammogram R92.8 [place] [address] [place] [id number] [address] [place] [address] Aug, [place] [address] [place] [id number] [address] [place] [address] Aug, Bipolar 1 disorder, depresse d, moderate F31.32 ; Panic disorder with agoraphobia F40.01 and Chronic post-traumatic stress disorder (PTSD) F43.12 [facility] [address] [id number] [address] [place] [address] Aug, [facility] [address] [facility] [id number] [address] [place] [address] Aug, [facility] [address] [facility] [id number] [address] [place] [address] Aug, [facility] [address] [facility] [id number] [address] [place] [address] Jul, [facility] [address] [facility] [id number] [address] [place] [address] Jul, Mild persistent asthma witho ut complication J45.30 [facility] [address] [facility] [id number] [address] [place] [address] Jul, Mild persistent asthma witho ut complication J45.30 [facility] [address] [facility] [id number] [address] [place] [id number] 15 Jul, 2017 Bipolar affective disorder, remission status unspecified F31.9 ; Diabetes E11.9 and Irritable bowel syndrome with constipation K58.1 [facility] [address] [facility] [id number] [address] [place] [address] Jul, [facility] [address] [facility] [id number] [address] [place] [address] Jul, [facility] [address] [facility] [id number] [address] [place] [address] Jul, Frequent headaches R51 [facility] [address] [facility] [id number] [address] [place] [id number] 07 Jul, 2017 [facility] [address] [facility] [id number] [address] [place] [address] Jul, [facility] [address] [facility] [id number] [address] [place] [address] Jul, [facility] [address] [address] 05 Jul, 2017 Frequent headaches R51 ; Fib rocystic disease of left breast N60.12 ; Fibrocystic disease of right breast N60.11 and Diabetes E11.9 [place] [address] [address] Jul, [place] [address] [address] Jul, [place] [address] [address] 21 Jun, 2017 Exudative tonsillitis J03.90 [place] [address] [address] 20 Jun, 2017 [place] [address] [address] 19 Jun, 2017 [place] [address] [address] 15 Jun, 2017 Mild persistent asthma witho ut complication J45.30 ; Chronic obstructive pulmonary disease, unspecified COPD type J44.9 and Exudative tonsillitis J03.90 [place] [address] [address] 13 Jun, 2017 Encounter for immunization Z 23 [place] [address] [address] Jun, [place] [address] [address] Jun, [place] [address] [address] 09 Jun, 2017 [facility] [address] [address] 06 Jun, 2017 Tonsillitis J03.90 [place] [address] [address] 05 Jun, 2017 [facility] [address] [facility] [id number] [address] [place] [address] 03 Jun, 2017 Acute non-recurrent maxillar y sinusitis J01.00 [facility] [address] [facility] [id number] [address] [place] [address] 02 Jun, 2017 [facility] [address] [id number] May, [facility] [address] [place] [id number] [place] [address] May, [facility] [address] [address] May, GERD (gastroesophageal reflu x disease) K21.9 [place] [address] [address] May, Migraine without aura and wi thout status migrainosus, not intractable G43.009 [facility] [address] [place] [id number] [address] [place] [address] May, [facility] [address] [address] May, [facility] [address] [address] May, Panlobular emphysema J43.1 a nd Acute non-recurrent maxillary sinusitis J01.00 [facility] [address] [address] May, Bipolar 1 disorder, depresse d, moderate F31.32 ; Panic disorder with agoraphobia F40.01 and Akathisia G25.71 [facility] [address] [place] [id number] [address] [place] [address] Apr, [facility] [address] [address] Apr, [facility] [address] [id number] [address] [place] [address] 13 Apr, 2017 Acute non-recurrent maxillar y sinusitis J01.00 [facility] [address] [id number] [address] [place] [address] 07 Apr, 2017 Panlobular emphysema J43.1 [facility] [address] [id number] [address] [place] [address] 04 Apr, 2017 [facility] [address] [id number] [address] [place] [address] 04 Apr, 2017 Exudative tonsillitis J03.90 and Sore throat J02.9 [facility] [address] [id number] [address] [place] [address] 17 Mar, 2017 [facility] [address] [facility] [id number] [address] [place] [address] 15 Mar, 2017 Acute non-recurrent maxillar y sinusitis J01.00 [facility] [address] [id number] [address] [place] [address] 13 Mar, 2017 [facility] [address] [id number] [address] [place] [address] 09 Mar, 2017 Panlobular emphysema J43.1 a nd Diabetes E11.9 [facility] [address] [facility] [id number] [address] [place] [address] 06 Mar, 2017 [facility] [address] [id number] [address] [place] [address] Feb, Wheezing R06.2 and Acute rec urrent pansinusitis J01.41 [facility] [address] [id number] [address] [place] [address] Feb, [facility] [address] [facility] [id number] [address] [place] [address] Feb, Acute non-recurrent maxillar y sinusitis J01.00 [facility] [address] [facility] [id number] [address] [place] [address] 16 Feb, 2017 Chronic obstructive pulmonar y disease, unspecified J44.9 [facility] [address] [id number] [address] [place] [address] Feb, Hypoxemia R09.02 and Chronic obstructive pulmonary disease, unspecified J44.9 [facility] [address] [facility] [id number] [address] [place] [address] 28 Jan, 2017 Bipolar 1 disorder, depresse d, moderate F31.32 ; Panic disorder with agoraphobia F40.01 ; Chronic post-traumatic stress disorder (PTSD) F43.12 ; Diabetes E11.9 and Moderate persistent asthma without complication J45.40 [facility] [address] [id number] [address] [place] [address] Jan, [facility] [address] [id number] [address] [place] [address] Jan, Acute non-recurrent maxillar y sinusitis J01.00 [facility] [address] [id number] [address] [place] [id number] 18 Jan, 2017 [facility] [address] [id number] [address] [place] [address] Jan, [facility] [address] [id number] [address] [place] [address] Jan, [facility] J[facility].40 and Hypoxemia R09.02 [facility] [address] [id number] [address] [place] [address] Jan, Moderate persistent asthma w ithout complication J45.40 and Hypoxemia R09.02 [facility] [address] [id number] [address] [place] [address] Jan, [facility] [address] [facility] [id number] [address] [place] [address] Dec, Acute non-recurrent maxillar y sinusitis J01.00 [facility] [address] [id number] [address] [place] [address] Dec, Chronic obstructive pulmonar y disease, unspecified J44.9 [facility] [address] [id number] [address] [place] [address] Dec, [facility] [address] [facility] [id number] [address] [place] [address] Dec, Mild persistent asthma witho ut complication J45.30 and Other chronic pain G89.29 [facility] [address] [id number] [address] [place] [address] Nov, [facility] [address] [id number] [address] [place] [address] Nov, Acute non-recurrent maxillar y sinusitis J01.00 [facility] [address] [facility] [id number] [address] [place] [address] Nov, [facility] [address] [place] [id number] [address] [place] [address] Nov, [facility] [address] [facility] [id number] [address] [place] [address] Oct, [facility] [address] [facility] [id number] [address] [place] [address] Oct, Bipolar 1 disorder, depresse d, partial remission F31.75 ; Panic disorder with agoraphobia F40.01 and Chronic post-traumatic stress disorder (PTSD) F43.12 [facility] [address] [facility] [id number] [address] [place] [address] Oct, Acute non-recurrent maxillar y sinusitis J01.00 [facility] [address] [facility] [id number] [address] [place] [address] Oct, [facility] [address] [facility] [id number] [address] [place] [address] Oct, Diabetes E11.9 [facility] [address] [place] [id number] [address] [place] [address] September, Diabetes E11.9 [facility] [address] [id number] [address] [place] [address] September, Diabetes E11.9 and Sinus tac hycardia R00.0 [facility] [address] [facility] [id number] [address] [place] [address] September, [facility] [address] [facility] [id number] [address] [place] [address] September, [facility] [address] [facility] [id number] [address] [place] [address] Aug, Diabetes E11.9 and Lumbago w ith sciatica, right side M54.41 [facility] [address] [facility] [id number] [address] [place] [address] Aug, [place] [address] [place] [id number] [address] [place] [address] Jul, Bipolar 1 disorder, depresse d, moderate F31.32 ; Panic disorder with agoraphobia F40.01 and Chronic post-traumatic stress disorder (PTSD) F43.12 [place] [address] [facility] [id number] [address] [place] [address] Jul, Sore throat J02.9 [facility] [address] [facility] [facility] [id number] [address] [place] [id number] Jul, [facility] [address] [facility] [facility] [id number] [address] [place] [id number] Jul, [facility] [address] [facility] [id number] [address] [place] [id number] Jul, [facility] [address] [facility] [id number] [address] [place] [id number] Jul, [facility] [address] [facility] [id number] [address] [place] [id number] Jul, Sore throat J02.9 and Pharyn gitis, unspecified etiology J02.9 [facility] [address] [id number] [address] [place] [id number] Jun, [facility] [address] [id number] [address] [place] [id number] Jun, Diabetes E11.9 [facility] [address] [id number] [address] [place] [id number] Jun, [facility] [address] [id number] [address] [place] [id number] Jun, [facility] [address] [id number] [address] [place] [id number] Jun, [facility] [address] [id number] [address] [place] [id number] Jun, [facility] [address] [id number] [address] [place] [id number] Jun, [facility] [address] [id number] [address] [place] [id number] Jun, [facility] [address] [id number] [address] [place] [id number] Jun, [facility] [address] [id number] [address] [place] [id number] Jun, [facility] [address] [id number] [address] [place] [id number] May, Diabetes E11.9 ; Other chron ic pain G89.29 ; Acute recurrent maxillary sinusitis J01.01 ; Bipolar I disorder with depression F31.9 and Anxiety disorder, unspecified F41.9 [facility] [address] [id number] [address] [place] [id number] May, [facility] [address] [id number] [address] [place] [address] May, Diabetes E11.9 ; Bipolar I d isorder with depression F31.9 ; Anxiety disorder, unspecified F41.9 ; Other chronic pain G89.29 and Acute recurrent maxillary sinusitis J01.01 [facility] [address] [id number] [address] [place] [address] May, [facility] [address] [id number] [address] [place] [address] May, Attention deficit hyperactiv ity disorder (ADHD), predominantly inattentive type F90.0 [place] [address] [id number] [address] [place] [address] May, [place] [address] [id number] [address] [place] [address] Apr, Attention deficit hyperactiv ity disorder (ADHD), predominantly inattentive type F90.0 and Non-seasonal allergic rhinitis due to other allergic trigger J30.89 [place] [address] [facility] [id number] [address] [place] [address] Apr, Bipolar 1 disorder, depresse d, moderate F31.32 ; Panic disorder with agoraphobia F40.01 and Chronic post-traumatic stress disorder (PTSD) F43.12 [place] [address] [facility] [id number] [address] [place] [address] 06 Apr, 2016 Dental examination Z01.20 [place] [address] [facility] [id number] [address] [place] [address] Mar, [place] [address] [facility] [id number] [address] [place] [address] Mar, [place] [address] [facility] [id number] [address] [place] [address] Mar, Bipolar I disorder with depr ession F31.9 and Anxiety disorder, unspecified F41.9 [place] [address] [id number] [address] [place] [id number] 08 Mar, 2016 Panic disorder with agorapho syd F40.01 ; Bipolar 1 disorder, depressed, moderate F31.32 and Chronic post-traumatic stress disorder (PTSD) F43.12 [place] [address] [facility] [id number] [address] [place] [address] Mar, [facility] [address] [id number] [address] [place] [address] Mar, Dental caries K02.9 [facility] [address] [facility] [id number] [address] [place] [id number] 24 Feb, 2016 Lumbago with sciatica, left side M54.42 ; Lumbago with sciatica, right side M54.41 and Other chronic pain G89.29 [facility] [address] [id number] [address] [place] [id number] 17 Feb, 2016 [place] [address] [facility] [id number] [address] [place] [address] 14 Feb, 2016 [place] [address] [facility] [id number] [address] [place] [id number] 13 Feb, 2016 Bipolar I disorder with depr ession F31.9 ; PTSD (post-traumatic stress disorder) F43.10 and Mood disorder F39 [place] [address] [facility] [id number] [address] [place] [address] 13 Feb, 2016 [place] [address] [facility] [id number] [address] [place] [address] 11 Feb, 2016 Dental examination Z01.20 [facility] [address] [facility] [id number] [address] [place] [id number] 07 Feb, 2016 [facility] [address] [facility] [id number] [address] [place] [address] 03 Feb, 2016 Acute bronchitis, unspecifie d organism J20.9 [facility] [address] [id number] [address] [place] [address] 26 Jan, 2016 Mood disorder F39 ; Migraine without aura and without status migrainosus, not intractable G43.009 ; Irritable bowel syndrome, unspecified type K58.9 ; Diabetes E11.9 and Encounter for immunization Z23 [facility] [address] [facility] [id number] [address] [place] [address] Jan, [facility] [address] [id number] [address] [place] [address] Jan, [facility] [address] [facility] [id number] [address] [place] [address] Jan, [facility] [address] [facility] [id number] [address] [place] [phone] Jan, [facility] [address] [facility] [id number] [address] [place] [address] Jan, [facility] [address] [id number] [address] [place] [address] Dec, Bipolar I disorder with depr ession F31.9 ; PTSD (post-traumatic stress disorder) F43.10 and Panic disorder with agoraphobia F40.01 [facility] [address] [facility] [id number] [address] [place] [address] Dec, Chronic obstructive pulmonar y disease, unspecified COPD type J44.9 ; Tremor R25.1 and Anxiety F41.9 [facility] [address] [facility] [id number] [address] [place] [address] Dec, [facility] [address] [facility] [id number] [address] [place] [address] Nov, Tremors of nervous system R2 5.1 and Cramping of feet R25.2 [facility] [address] [facility] [id number] [address] [place] [address] Nov, [facility] [address] [facility] [id number] [address] [place] [address] Nov, [facility] [address] [facility] [id number] [address] [place] [address] Oct, Chronic obstructive pulmonar y disease, unspecified J44.9 [facility] [address] [facility] [id number] [address] [place] [address] Oct, [facility] [address] [facility] [id number] [address] [place] [address] Oct, Tremor R25.1 [facility] [address] [facility] [id number] [address] [place] [address] Oct, Bipolar I disorder with depr ession F31.9 ; Diabetes E11.9 ; PTSD (post-traumatic stress disorder) F43.10 and Panic disorder with agoraphobia F40.01 [place] [address] [place] [id number] [address] [place] [address] Oct, Mood disorder F39 [place] [address] [place] [id number] [address] [place] [address] September, [place] [address] [place] [id number] [place] [address] September, Diabetes E11.9 ; Bipolar I d isorder with depression F31.9 ; PTSD (post-traumatic stress disorder) F43.10 and Panic disorder with agoraphobia F40.01 [place] [address] [place] [id number] [address] [place] [address] September, Mood disorder F39 ; Schizoaf fective disorder, unspecified type F25.9 ; Arthritis M19.90 ; Tremor R25.1 ; Acute non-recurrent frontal sinusitis J01.10 and Blood in stool K92.1 [place] [address] [place] [id number] [address] [place] [address] September, [place] [address] [facility] [id number] [address] [place] [address] September, Chronic obstructive pulmonar y disease, unspecified J44.9 [place] [address] [place] [id number] [address] [place] [address] September, Diabetes E11.9 [place] [address] [place] [id number] [address] [place] [address] Aug, Other bipolar disorder F31.8 9 and Anxiety disorder, unspecified F41.9 [place] [address] [place] [id number] [address] [place] [id number] Aug, [facility] [address] [id number] [address] [place] [address] Aug, Diabetes E11.9 [facility] [address] [id number] [address] [place] [address] 18 Aug, 2015 [facility] [address] [id number] [address] [place] [address] 14 Aug, 2015 Diabetes E11.9 ; Fatigue R53 .83 and Dizziness R42 [facility] [address] [id number] [address] [place] [id number] 13 Aug, 2015 Other bipolar disorder F31.8 9 [facility] [address] [id number] [address] [place] [address] 07 Aug, 2015 Generalized anxiety disorder F41.1 [facility] [address] [id number] [address] [place] [address] Aug, Other bipolar disorder F31.8 9 and Anxiety disorder, unspecified F41.9 [facility] [address] [id number] [address] [place] [address] Aug, [facility] [address] [id number] [address] [place] [id number] Jul, [facility] [address] [facility] [id number] [address] [place] [address] Jul, [facility] [address] [id number] [address] [place] [address] Jul, Bronchitis J40 [facility] [address] [id number] [address] [place] [address] Jul, Anxiety disorder F41.9 [facility] [address] [id number] [address] [place] [address] Jul, Other bipolar disorder F31.8 9 and Anxiety disorder, unspecified F41.9 [facility] [address] [id number] [address] [place] [address] Jul, Other bipolar disorder F31.8 9 and Fibromyalgia M79.7 [facility] [address] [place] [id number] [address] [place] [address] Jul, [facility] [address] [place] [id number] [address] [place] [address] Jul, [facility] [address] [place] [id number] [address] [place] [address] Jul, [facility] [address] [place] [id number] [place] [address] Jul, Other bipolar disorder F31.8 9 and Anxiety disorder, unspecified F41.9 [facility] [address] [place] [id number] [place] [address] Jun, GERD (gastroesophageal reflu x disease) K21.9 [facility] [address] [id number] Jun, [facility] [address] [place] [id number] [place] [address] May, [facility] [address] [address] May, Diabetes E11.9 ; Back pain M 54.9 ; GERD (gastroesophageal reflux disease) K21.9 ; Hypertension I10 and Peripheral neuropathy G62.9 [facility] [address] [address] Mar, [facility] [address] [place] [id number] [place] [address] Mar, [facility] [address] [address] Mar, Acute sinusitis J01.90 and O titis media, left H66.92 [facility] [address] [place] [id number] [address] [place] [address] Feb, [facility] [address] [place] [address] Feb, [facility] [address] [facility] [id number] [address] [place] [address] Feb, [facility] [address] [facility] [id number] [address] [place] [address] Feb, [facility] [address] [facility] [id number] [address] [place] [id number] Jan, [facility] [address] [facility] [id number] [address] [place] [address] Jan, Diabetes 250.00 and Back higinio n 724.5 [facility] [address] [facility] [id number] [address] [place] [address] Jan, [facility] [address] [place] [id number] [address] [place] [address] Dec, Diabetes 250.00 ; Benign ess ential hypertension 401.1 and Allergic rhinitis 477.9 [facility] [address] [facility] [id number] [address] [place] [address] Dec, [facility] [address] [facility] [id number] [address] [place] [address] Dec, [facility] [address] [facility] [id number] [address] [place] [address] Dec, Psychosis 298.9 [facility] [address] [place] [id number] [address] [place] [address] Dec, Medication side effect 995.2 0 and Generalized anxiety disorder 300.02 [facility] [address] [facility] [id number] [address] [place] [address] Dec, Acquired cognitive dysfuncti on 294.9 [facility] [address] [facility] [id number] [address] [place] [address] Dec, [facility] [address] [facility] [id number] [address] [place] [address] Dec, Unspecified myalgia and myos itis 729.1 and Generalized anxiety disorder 300.02 [facility] [address] [id number] [address] [place] [address] Nov, [facility] [address] [facility] [id number] [address] [place] [address] Nov, [facility] [address] [facility] [id number] [address] [place] [address] Nov, [facility] [address] [facility] [id number] [address] [place] [address] Nov, Upper respiratory infection 465.9 and Chronic airway obstruction, not elsewhere classified 496 [facility] [address] [id number] [address] [place] [address] Nov, Hyponatremia 276.1 [facility] [address] [facility] [id number] [address] [place] [address] Oct, [facility] [address] [facility] [id number] [address] [place] [address] Oct, [facility] [address] [facility] [id number] [address] [place] [address] Oct, [facility] [address] [facility] [id number] [address] [place] [address] Oct, [facility] [address] [facility] [id number] [address] [place] [address] Oct, Hyponatremia 276.1 [facility] [address] [facility] [id number] [address] [place] [address] Oct, [facility] [address] [id number] [address] [place] [address] Oct, [facility] [address] [facility] [id number] [address] [place] [address] Oct, Generalized anxiety disorder 300.02 [facility] [address] [facility] [id number] [address] [place] [id number] 01 Rodrick, 2015 Generalized anxiety disorder 300.02 and Diabetes 250.00 [facility] [address] [id number] [address] [place] [address], [place] [address] 14 Aug, 2014 [facility] [address] [id number] [address] [place] [address], [place] [address] 13 Aug, 2014 [facility] [address] [id number] [address] [place] [address], [place] [address] Jul, [facility] [address] [id number] [address] [place] [address], [place] [address] Jul, [facility] [address] [id number] [address] [place] [address], [place] [address] Jun, [facility] [address] [id number] [address] [place] [address], [place] [address] Jun, [facility] [address] [id number] [address] [place] [address], [place] [address] Jun, [facility] [address] [id number] [address] [place] [address], [place] [address] Jun, [facility] [address] [id number] [address] [place] [address], [place] [address] Jun, [facility] [address] [id number] [address] [place] [address], [place] [address] May, [facility] [address] [id number] [address] [place] [address] May, [facility] [address] [id number] [address] [place] [address] Apr, [facility] [address] [id number] [address] [place] [address], [place] [address] Apr, [facility] [address] [id number] [address] [place] [address], [place] [address] Apr, [facility] [address] [id number] [address] [place] [address], [place] [address] Apr, [facility] [address] [id number] [address] [place] [address], [place] [address] Apr, [facility] [address] [id number] [address] [place] [address], [place] [address] Apr, [facility] [address] [id number] [address] [place] [address], [place] [address] Apr, [facility] [address] [id number] [address] [place] [address], [place] [address] Apr, [facility] [address] [id number] [address] [place] [address], [place] [address] Feb, [facility] [address] [id number] [address] [place] [address], [place] [address] Feb, [facility] [address] [id number] [address] [place] [address], [place] [address] Jan, [facility] [address] [id number] [address] [place] [address], [place] [address] Jan, [facility] [address] [id number] [address] [place] [address], [place] [address] Dec, [facility] [address] [id number] [address] [place] [address], [place] [address] Dec, [facility] [address] [id number] [address] [place] [address], [place] [address] Dec, [facility] [address] [id number] [address] [place] [address], [place] [address] Nov, [facility] [address] [id number] [address] [place] [address], [place] [address] Nov, [facility] [address] [id number] [address] [place] [address], [place] [address] Nov, [facility] [address] [id number] [address] [place] [address], [place] [address] Oct, [facility] [address] [id number] [address] [place] [address], [place] [address] Oct, [facility] [address] [id number] [address] [place] [address], [place] [address] Oct, [facility] [address] [id number] [address] [place] [address], [place] [address] September, [facility] [address] [id number] [address] [place] [address], [place] [address] September, [facility] [address] [id number] [address] [place] [address], [place] [address] September, [facility] [address] [id number] [address] [place] [address], [place] [address] Aug, [facility] [address] [id number] [address] [place] [address], [place] [address] Aug, [facility] [address] [id number] [address] [place] [address], [place] [address] Aug, [facility] [address] [id number] [address] [place] [address], [place] [address] 16 Aug, 2011 [facility] [address] [id number] [address] [place] [address], [place] [address] Jul, [facility] [address] [id number] [address] [place] [address], [place] [address] Jun, [facility] [address] [id number] [address] [place] [address], [place] [address] 14 Jun, 2011 [facility] [address] [id number] [address] [place] [address], [place] [address] 13 Jun, 2011 [facility] [address] [id number] [address] [place] [address], [place] [address] 07 Jun, 2011 [facility] [address] [id number] [address] [place] [address], [place] [address] 03 Jun, 2011 [facility] [address] [id number] [address] [place] [address], [place] [address] May, [facility] [address] [id number] [address] [place] [address], [place] [address] 10 May, 2011 [facility] [address] [id number] [address] [place] [address], [place] [address] May, [facility] [address] [id number] [address] [place] [address], [place] [address] May, [facility] [address] [id number] [address] [place] [address], [place] [address] Apr, [facility] [address] [id number] [address] [place] [address], [place] [address] Apr, [facility] [address] [id number] [address] [place] [address], [place] [address] Apr, [facility] [address] [id number] [address] [place] [address], [place] [address] Mar, [facility] [address] [id number] [address] [place] [address], [place] [address] Mar, [facility] [address] [id number] [address] [place] [address], [place] [address] Mar, [facility] [address] [id number] [address] [place] [address], [place] [address] Feb, [facility] [address] [id number] [address] [place] [address], [place] [address] Feb, [facility] [address] [id number] [address] [place] [address], [place] [address] Feb, [facility] [address] [id number] [address] [place] [address], [place] [address] Nov, [facility] [address] [id number] [address] [place] [address], [place] [address] 16 Sep, 2010 [facility] [address] [id number] [address] [place] [address], [place] [address] 12 Aug, 2010 [facility] [address] [id number] [address] [place] [address], [place] [address] 14 Jul, 2010 [facility] [address] [facility] [id number] [address] [place] [id number] 11 May, 2010 [facility] [address] [facility] [id number] [address] [place] [id number] Apr, [facility] [address] [facility] [id number] [address] [place] [id number] Apr, [facility] [address] [facility] [id number] [address] [place] [id number] Apr, [facility] [address] [facility] [id number] [address] [place] [id number] Apr, [facility] [address] [facility] [id number] [address] [place] [id number] Apr, IMMUNIZATIONS No Known Immunizations SOCIAL HISTORY Never Assessed REASON FOR VISIT Controlled Med Refill PLAN OF CARE VITAL SIGNS MEDICATIONS Medication Instructions Dosage Frequency Start Date End Date Duration S tatus Fluticasone Propionate 50 MCG/ACT USE ONE SPRAY IN EAC H NOSTRIL TWICE DAILY 30 Active [place] 7.5-325 MG Orally 3 times a day 1 tablet as needed 8h Oct, 28 days Active RESULTS No Results [...]
--- OUTSIDE RECORDS SUMMARY | 2019-07-17 11:04 | XMS REPORT ---
Author Author Sujey FINLEY Organization [facility] Address [address] [place] [address] Care Team Providers Care Press Writer Name Role Phone TUSHARRILEYTODD Unavailable PROBLEMS Type Condition ICD9-CM Code [id number] Code Onset Dates Condition S tatus SNOMED Code Problem Back pain M54.9 Active 066201981 Problem Diabetes E11.9 Active 93102178 Problem GERD (gastroesophageal reflux disease) K21.9 Active 094568790 Problem Hypertension I10 Active 5473841 3 Problem Anxiety disorder, unspecified F41.9 Active 560264787 Problem Other bipolar disorder F31.89 Active 97840204 Problem Fibromyalgia M79.7 Active 0365883 7 Problem Panic disorder with agoraphobia F40.01 Active 66887042 Problem Panlobular emphysema J43.1 Active 0953201 Problem Chronic obstructive pulmonary disease, unspecified J44.9 Active 11272234 Problem Akathisia G25.71 Active 908215590 Problem Lumbago with sciatica, left side M54.42 Active 684219121 Problem Migraine without aura and without status migrain osus, not intractable G43.009 Active 907963241 Problem Fibrocystic disease of right breast N60.11 Active 30274637 Problem Fibrocystic disease of left breast N60.12 Active 60448568 Problem Slow transit constipation K59.01 Acti ve 27172468 Problem Essential tremor G25.0 Active 609 010758 Problem Bipolar 1 disorder, depressed, moderate F31.32 Active 29320198 Problem Other chronic pain G89.29 Active 8 7901627 Problem Lumbago with sciatica, right side M54.41 Active 119588987 Problem Irritable bowel syndrome with constipation K58.1 Active 707965471 Problem Arthritis M19.90 Active 8000809 Problem Schizoaffective disorder, bipolar type F25.0 Active 79818544 Problem Irritable bowel syndrome with both constipation and diarrh ea K58.2 Active 74698528 Problem Attention deficit hyperactiv ity disorder (ADHD), predominantly inattentive type F90.0 Active 06397646 Problem Bipolar I disorder with depression F31.9 Active 54910995 Problem Chronic post-traumatic stress disorder (PTSD) F43. 12 Active 924365154 Problem Bipolar affective disorder, remission status unspecified F31.9 Active 30375361 Problem Mild persistent asthma without complication J45.30 Active 955741746 Problem Moderate persistent asthma without complication J4 5.40 Active 043475144 Problem Acute non-recurrent maxillary sinusitis J01.00 Active 55666629 Problem Bipolar 1 disorder, depressed, partial remission F 31.75 Active 50776018 ALLERGIES No Information ENCOUNTERS Encounter Location Date Diagnosis [place] [address] [address] [facility] [id number] [address] [place] [id number] Mar, [place] [address] [address] [facility] [id number] [address] [place] [phone] Dec, [place] [address] [address] [facility] [id number] [address] [place] [phone] Dec, [place] [address] [address] [facility] [id number] [address] [place] [address] Dec, [place] [address] [address] [facility] [id number] [address] [place] [phone] Nov, Bipolar 1 disorder, depresse d, partial remission F31.75 and Panic disorder with agoraphobia F40.01 [facility] [address] [facility] [id number] [address] [place] [phone] Nov, Panlobular emphysema J43.1 [facility] [address] [facility] [id number] [address] [place] [address] Nov, Cerebrovascular accident (CV A) due to occlusion of right cerebellar artery I63.541 and Acute non-recurrent maxillary sinusitis J01.00 [facility] [address] [facility] [id number] [address] [place] [phone] Nov, Panlobular emphysema J43.1 [facility] [address] [facility] [id number] [address] [place] [phone] Nov, [facility] [address] [id number] [address] [place] [address] Nov, [facility] [address] [id number] [address] [place] [phone] Nov, [facility] [address] [id number] [address] [place] [phone] Nov, [facility] [address] [id number] [address] [place] [phone] Nov, [facility] [address] [id number] [address] [place] [phone] Nov, [facility] [address] [facility] [id number] [address] [place] [phone] Nov, [facility] [address] [facility] [id number] [address] [place] [id number] Nov, Mild persistent asthma witho ut complication J45.30 and Irritable bowel syndrome with both constipation and diarrhea K58.2 [facility] [address] [facility] [id number] [address] [place] [phone] Nov, [facility] [address] [facility] [id number] [address] [place] [id number] Oct, [facility] [address] [facility] [id number] [address] [place] [phone] Oct, [facility] [address] [facility] [id number] [address] [place] [address] Oct, Type 2 diabetes mellitus wit h diabetic neuropathy, 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 ; Diabetes E11.9 ; Slow transit constipation K59.01 ; Edema of both legs R60.0 and Dysfunction of right eustachian tube H69.81 [facility] [address] [facility] [id number] [address] [place] [address] Oct, Frequent headaches R51 [facility] [address] [facility] [id number] [address] [place] [phone] Oct, [facility] [address] [id number] [address] [place] [phone] Oct, [facility] [address] [id number] [address] [place] [phone] Oct, [facility] [address] [id number] [address] [place] [address] Oct, [facility] [address] [id number] [address] [place] [phone] Oct, [facility] [address] [id number] [address] [place] [phone] Oct, [facility] [address] [facility] [id number] [address] [place] [id number] Oct, [facility] [address] [facility] [id number] [address] [place] [phone] Oct, [facility] [address] [facility] [id number] [address] [place] [phone] September, Frequent headaches R51 [facility] [address] [facility] [id number] [address] [place] [phone] September, Bilateral otitis media with effusion H65.93 ; Dizziness R42 and Essential tremor G25.0 [facility] [address] [facility] [id number] [address] [place] [phone] September, Chronic obstructive pulmonar y disease, unspecified COPD type J44.9 [facility] [address] [facility] [id number] [address] [place] [address] September, Chronic obstructive pulmonar y disease, unspecified COPD type J44.9 [facility] [address] [facility] [id number] [address] [place] [address] September, Migraine without aura and wi thout status migrainosus, not intractable G43.009 [facility] [address] [facility] [id number] [address] [place] [phone] September, [facility] [address] [facility] [id number] [address] [place] [phone] September, [facility] [address] [facility] [id number] [address] [place] [phone] September, [facility] [address] [facility] [id number] [address] [place] [phone] September, Frequent headaches R51 [facility] [address] [facility] [id number] [address] [place] [id number] Aug, [facility] [address] [facility] [id number] [address] [place] [address] Aug, Breast mass, right N63.10 [facility] [address] [facility] [id number] [address] [place] [address] Aug, Breast lump N63.0 [facility] [address] [facility] [id number] [address] [place] [id number] Aug, [facility] [address] [facility] [id number] [address] [place] [phone] Aug, Bipolar affective disorder, remission status unspecified F31.9 and Diabetes E11.9 [facility] [address] [facility] [id number] [address] [place] [phone] Aug, Diabetes E11.9 ; Schizoaffec tive disorder, bipolar type F25.0 ; Pharyngitis due to other organism J02.8 ; Panlobular emphysema J43.1 and Irritable bowel syndrome with both constipation and diarrhea K58.2 [facility] [address] [facility] [id number] [address] [place] [address] Aug, Abnormal mammogram R92.8 [facility] [address] [facility] [id number] [address] [place] [phone] Aug, [facility] [address] [facility] [id number] [address] [place] [id number] Aug, Bipolar 1 disorder, depresse d, moderate F31.32 ; Panic disorder with agoraphobia F40.01 and Chronic post-traumatic stress disorder (PTSD) F43.12 [facility] [address] [facility] [id number] [address] [place] [address] Aug, [facility] [address] [facility] [id number] [address] [place] [phone] Aug, [facility] [address] [facility] [id number] [address] [place] [phone] Aug, [facility] [address] [id number] [address] [place] [phone] Jul, [facility] [address] [facility] [id number] [address] [place] [phone] Jul, Mild persistent asthma witho ut complication J45.30 [facility] [address] [facility] [id number] [address] [place] [phone] Jul, Mild persistent asthma witho ut complication J45.30 [facility] [address] [facility] [id number] [address] [place] [id number] Jul, Bipolar affective disorder, remission status unspecified F31.9 ; Diabetes E11.9 and Irritable bowel syndrome with constipation K58.1 [facility] [address] [facility] [id number] [address] [place] [phone] Jul, [facility] [address] [facility] [id number] [address] [place] [address] Jul, [facility] [address] [facility] [id number] [address] [place] [phone] Jul, Frequent headaches R51 [facility] [address] [facility] [id number] [address] [place] [address] Jul, [facility] [address] [facility] [id number] [address] [place] [address] Jul, [facility] [address] [facility] [id number] [address] [place] [address] Jul, [facility] [address] [place] [id number] [address] [place] [id number] 05 Jul, 2017 Frequent headaches R51 ; Fib rocystic disease of left breast N60.12 ; Fibrocystic disease of right breast N60.11 and Diabetes E11.9 [facility] [address] [place] [id number] [address] [place] [address] 02 Jul, 2017 [place] [address] [address] Jul, [place] [address] [address] 21 Jun, 2017 Exudative tonsillitis J03.90 [place] [address] [address] 20 Jun, 2017 [place] [address] [id number] 19 Jun, 2017 [place] [address] [id number] 15 Jun, 2017 Mild persistent asthma witho ut complication J45.30 ; Chronic obstructive pulmonary disease, unspecified COPD type J44.9 and Exudative tonsillitis J03.90 [place] [address] [address] [place] [id number] [address] [place] [address] 13 Jun, 2017 Encounter for immunization Z 23 [place] [address] [id number] Jun, [place] [address] [id number] 12 Jun, 2017 [place] [address] [id number] 09 Jun, 2017 [facility] [address] [place] [id number] [address] [place] [id number] 06 Jun, 2017 Tonsillitis J03.90 [place] [address] [id number] 05 Jun, 2017 [facility] [address] [facility] [id number] [address] [place] [id number] 03 Jun, 2017 Acute non-recurrent maxillar y sinusitis J01.00 [facility] [address] [facility] [id number] [address] [place] [id number] 02 Jun, 2017 [facility] [address] [place] [id number] [place] [phone] May, [facility] [address] [facility] [id number] [address] [place] [phone] May, [facility] [address] [place] [id number] [place] [address] May, GERD (gastroesophageal reflu x disease) K21.9 [facility] [address] [place] [id number] [place] [address] May, Migraine without aura and wi thout status migrainosus, not intractable G43.009 [facility] [address] [place] [id number] [address] [place] [phone] May, [facility] [address] [place] [id number] [place] [phone] May, [facility] [address] [place] [id number] [place] [address] May, Panlobular emphysema J43.1 a nd Acute non-recurrent maxillary sinusitis J01.00 [facility] [address] [facility] [id number] [address] [place] [id number] 04 May, 2017 Bipolar 1 disorder, depresse d, moderate F31.32 ; Panic disorder with agoraphobia F40.01 and Akathisia G25.71 [facility] [address] [place] [id number] [address] [place] [address] Apr, [facility] [address] [address] Apr, [facility] [address] [id number] [address] [place] [id number] 13 Apr, 2017 Acute non-recurrent maxillar y sinusitis J01.00 [facility] [address] [id number] [address] [place] [address] 07 Apr, 2017 Panlobular emphysema J43.1 [facility] [address] [id number] [address] [place] [id number] 04 Apr, 2017 [facility] [address] [id number] [address] [place] [id number] 04 Apr, 2017 Sore throat J02.9 and Exudat minoo tonsillitis J03.90 [facility] [address] [id number] [address] [place] [id number] 17 Mar, 2017 [facility] [address] [facility] [id number] [address] [place] [id number] 15 Mar, 2017 Acute non-recurrent maxillar y sinusitis J01.00 [facility] [address] [id number] [address] [place] [address] 13 Mar, 2017 [facility] [address] [id number] [address] [place] [id number] 09 Mar, 2017 Panlobular emphysema J43.1 a nd Diabetes E11.9 [facility] [address] [facility] [id number] [address] [place] [address] Mar, [facility] [address] [facility] [id number] [address] [place] [address] Feb, Wheezing R06.2 and Acute rec urrent pansinusitis J01.41 [facility] [address] [facility] [id number] [address] [place] [address] Feb, [facility] [address] [facility] [id number] [address] [place] [address] Feb, Acute non-recurrent maxillar y sinusitis J01.00 [facility] [address] [id number] [address] [place] [id number] 16 Feb, 2017 Chronic obstructive pulmonar y disease, unspecified J44.9 [facility] [address] [id number] [address] [place] [id number] 02 Feb, 2017 Hypoxemia R09.02 and Chronic obstructive pulmonary disease, unspecified J44.9 [facility] [address] [facility] [id number] [address] [place] [id number] 28 Jan, 2017 Bipolar 1 disorder, depresse d, moderate F31.32 ; Panic disorder with agoraphobia F40.01 ; Chronic post-traumatic stress disorder (PTSD) F43.12 ; Diabetes E11.9 and Moderate persistent asthma without complication J45.40 [facility] [address] [id number] [address] [place] [id number] 22 Jan, 2017 [facility] [address] [id number] [address] [place] [id number] Jan, Acute non-recurrent maxillar y sinusitis J01.00 [facility] [address] [id number] [address] [place] [id number] 18 Jan, 2017 [facility] [address] [id number] [address] [place] [id number] 18 Jan, 2017 [facility] [address] [id number] [address] [place] [phone] Jan, Moderate persistent asthma w [facility] complication J45.40 and Hypoxemia R09.02 [facility] [address] [id number] [address] [place] [address] Jan, Moderate persistent asthma w ithout complication J45.40 and Hypoxemia R09.02 [facility] [address] [id number] [address] [place] [id number] Jan, [facility] [address] [facility] [id number] [address] [place] [id number] Dec, Acute non-recurrent maxillar y sinusitis J01.00 [facility] [address] [id number] [address] [place] [phone] Dec, Chronic obstructive pulmonar y disease, unspecified J44.9 [facility] [address] [facility] [id number] [address] [place] [address] Dec, [facility] [address] [facility] [id number] [address] [place] [id number] Dec, Mild persistent asthma witho ut complication J45.30 and Other chronic pain G89.29 [facility] [address] [id number] [address] [place] [address] Nov, [facility] [address] [id number] [address] [place] [address] Nov, Acute non-recurrent maxillar y sinusitis J01.00 [facility] [address] [place] [id number] [address] [place] [address] Nov, [facility] [address] [place] [id number] [address] [place] [id number] Nov, [facility] [address] [place] [id number] [address] [place] [address] Oct, [facility] [address] [place] [id number] [address] [place] [address] Oct, Bipolar 1 disorder, depresse d, partial remission F31.75 ; Panic disorder with agoraphobia F40.01 and Chronic post-traumatic stress disorder (PTSD) F43.12 [facility] [address] [place] [id number] [address] [place] [id number] Oct, Acute non-recurrent maxillar y sinusitis J01.00 [facility] [address] [facility] [id number] [address] [place] [address] Oct, [facility] [address] [place] [id number] [address] [place] [id number] Oct, Diabetes E11.9 [facility] [address] [place] [id number] [address] [place] [address] September, Diabetes E11.9 [facility] [address] [facility] [id number] [address] [place] [id number] September, Diabetes E11.9 and Sinus tac hycardia R00.0 [facility] [address] [id number] [address] [place] [id number] September, [facility] [address] [facility] [id number] [address] [place] [phone] September, [facility] [address] [facility] [id number] [address] [place] [id number] Aug, Diabetes E11.9 and Lumbago w ith sciatica, right side M54.41 [facility] [address] [facility] [id number] [address] [place] [id number] Aug, [facility] [address] [facility] [id number] [address] [place] [id number] Jul, Bipolar 1 disorder, depresse d, moderate F31.32 ; Panic disorder with agoraphobia F40.01 and Chronic post-traumatic stress disorder (PTSD) F43.12 [facility] [address] [facility] [id number] [address] [place] [address] Jul, Sore throat J02.9 [facility] [address] [facility] [id number] [address] [place] [id number] Jul, [facility] [address] [facility] [id number] [address] [place] [id number] Jul, [facility] [address] [facility] [id number] [address] [place] [phone] Jul, [facility] [address] [facility] [id number] [address] [place] [phone] Jul, [facility] [address] [facility] [id number] [address] [place] [phone] Jul, Sore throat J02.9 and Pharyn gitis, unspecified etiology J02.9 [facility] [address] [id number] [address] [place] [phone] Jun, [facility] [address] [id number] [address] [place] [phone] Jun, Diabetes E11.9 [facility] [address] [id number] [address] [place] [phone] Jun, [facility] [address] [id number] [address] [place] [phone] Jun, [facility] [address] [id number] [address] [place] [phone] Jun, [facility] [address] [id number] [address] [place] [phone] Jun, [facility] [address] [id number] [address] [place] [phone] Jun, [facility] [address] [id number] [address] [place] [id number] Jun, [facility] [address] [id number] [address] [place] [id number] Jun, [facility] [address] [id number] [address] [place] [phone] Jun, [facility] [address] [id number] [address] [place] [phone] May, Diabetes E11.9 ; Bipolar I d isorder with depression F31.9 ; Other chronic pain G89.29 ; Acute recurrent maxillary sinusitis J01.01 and Anxiety disorder, unspecified F41.9 [facility] [address] [id number] [address] [place] [phone] May, [facility] [address] [id number] [address] [place] [phone] May, Diabetes E11.9 ; Bipolar I d isorder with depression F31.9 ; Anxiety disorder, unspecified F41.9 ; Other chronic pain G89.29 and Acute recurrent maxillary sinusitis J01.01 [place] [id number] [id number] [address] [place] [id number] May, [place] [address] [facility] [id number] [address] [place] [id number] May, Attention deficit hyperactiv ity disorder (ADHD), predominantly inattentive type F90.0 [place] [address] [facility] [id number] [address] [place] [phone] May, [place] [address] [id number] [address] [place] [phone] Apr, Attention deficit hyperactiv ity disorder (ADHD), predominantly inattentive type F90.0 and Non-seasonal allergic rhinitis due to other allergic trigger J30.89 [place] [address] [place] [id number] [address] [place] [address] Apr, Bipolar 1 disorder, depresse d, moderate F31.32 ; Panic disorder with agoraphobia F40.01 and Chronic post-traumatic stress disorder (PTSD) F43.12 [place] [address] [address] [facility] [id number] [address] [place] [phone] Apr, Dental examination Z01.20 [place] [address] [address] [facility] [id number] [address] [place] [phone] 23 Mar, 2016 [place] [address] [facility] [id number] [address] [place] [phone] Mar, [place] [address] [address] [facility] [id number] [address] [place] [phone] Mar, Bipolar I disorder with depr ession F31.9 and Anxiety disorder, unspecified F41.9 [place] [address] [address] [facility] [id number] [address] [place] [phone] 08 Mar, 2016 Panic disorder with agorapho syd F40.01 ; Bipolar 1 disorder, depressed, moderate F31.32 and Chronic post-traumatic stress disorder (PTSD) F43.12 [place] [address] [place] [id number] [address] [place] [phone] Mar, [facility] [address] [id number] [address] [place] [address] Mar, Dental caries K02.9 [facility] [address] [facility] [id number] [address] [place] [id number] 24 Feb, 2016 Lumbago with sciatica, left side M54.42 ; Lumbago with sciatica, right side M54.41 and Other chronic pain G89.29 [place] [address] [address] [facility] [id number] [address] [place] [id number] 17 Feb, 2016 [place] [address] [facility] [id number] [place] [phone] 14 Feb, 2016 [place] [address] [place] [id number] [place] [phone] Feb, Bipolar I disorder with depr ession F31.9 ; PTSD (post-traumatic stress disorder) F43.10 and Mood disorder F39 [place] [address] [place] [id number] [address] [place] [phone] Feb, [place] [address] [facility] [id number] [address] [place] [phone] Feb, Dental examination Z01.20 [facility] [address] [place] [id number] [address] [place] [id number] Feb, [facility] [address] [facility] [id number] [address] [place] [phone] Feb, Acute bronchitis, unspecifie d organism J20.9 [facility] [address] [facility] [id number] [address] [place] [phone] 26 Jan, 2016 Mood disorder F39 ; Migraine without aura and without status migrainosus, not intractable G43.009 ; Irritable bowel syndrome, unspecified type K58.9 ; Diabetes E11.9 and Encounter for immunization Z23 [facility] [address] [place] [id number] [address] [place] [phone] Jan, [facility] [address] [facility] [id number] [address] [place] [phone] Jan, [facility] [address] [facility] [id number] [address] [place] [phone] Jan, [facility] [address] [facility] [id number] [address] [place] [phone] Jan, [facility] [address] [facility] [id number] [address] [place] [phone] Jan, [facility] [address] [facility] [id number] [address] [place] [phone] Dec, Bipolar I disorder with depr ession F31.9 ; PTSD (post-traumatic stress disorder) F43.10 and Panic disorder with agoraphobia F40.01 [facility] [address] [facility] [id number] [address] [place] [phone] Dec, Chronic obstructive pulmonar y disease, unspecified COPD type J44.9 ; Tremor R25.1 and Anxiety F41.9 [facility] [address] [facility] [id number] [address] [place] [phone] Dec, [facility] [address] [facility] [id number] [address] [place] [phone] Nov, Tremors of nervous system R2 5.1 and Cramping of feet R25.2 [facility] [address] [facility] [id number] [address] [place] [phone] Nov, [facility] [address] [facility] [id number] [address] [place] [phone] Nov, [facility] [address] [facility] [id number] [address] [place] [phone] Oct, Chronic obstructive pulmonar y disease, unspecified J44.9 [facility] [address] [facility] [id number] [address] [place] [phone] Oct, [facility] [address] [place] [id number] [address] [place] [phone] Oct, Tremor R25.1 [place] [address] [place] [id number] [address] [place] [phone] Oct, Bipolar I disorder with depr ession F31.9 ; Diabetes E11.9 ; PTSD (post-traumatic stress disorder) F43.10 and Panic disorder with agoraphobia F40.01 [place] [address] [place] [id number] [address] [place] [phone] Oct, Mood disorder F39 [place] [address] [place] [id number] [address] [place] [phone] September, [place] [address] [address] September, Diabetes E11.9 ; Bipolar I d isorder with depression F31.9 ; PTSD (post-traumatic stress disorder) F43.10 and Panic disorder with agoraphobia F40.01 [place] [address] [place] [id number] [address] [place] [phone] September, Mood disorder F39 ; Schizoaf fective disorder, unspecified type F25.9 ; Arthritis M19.90 ; Tremor R25.1 ; Acute non-recurrent frontal sinusitis J01.10 and Blood in stool K92.1 [place] [id number] [place] [phone] September, [place] [address] [place] [id number] [address] [place] [phone] September, Chronic obstructive pulmonar y disease, unspecified J44.9 [place] [address] [place] [id number] [address] [place] [address] September, Diabetes E11.9 [place] [address] [place] [id number] [address] [place] [phone] Aug, Other bipolar disorder F31.8 9 and Anxiety disorder, unspecified F41.9 [place] [address] [place] [id number] [place] [phone] Aug, [facility] [address] [id number] [address] [place] [phone] Aug, Diabetes E11.9 [facility] [address] [id number] [address] [place] [address] 18 Aug, 2015 [facility] [address] [id number] [address] [place] [address] 14 Aug, 2015 Diabetes E11.9 ; Fatigue R53 .83 and Dizziness R42 [facility] [address] [id number] [address] [place] [phone] 13 Aug, 2015 Other bipolar disorder F31.8 9 [facility] [address] [id number] [address] [place] [phone] 07 Aug, 2015 Generalized anxiety disorder F41.1 [facility] [address] [id number] [address] [place] [phone] 07 Aug, 2015 Other bipolar disorder F31.8 9 and Anxiety disorder, unspecified F41.9 [facility] [address] [id number] [address] [place] [phone] Aug, [facility] [address] [id number] [address] [place] [phone] Jul, [facility] [address] [id number] [address] [place] [phone] Jul, [facility] [address] [id number] [address] [place] [phone] Jul, Bronchitis J40 [facility] [address] [id number] [address] [place] [phone] Jul, Anxiety disorder F41.9 [facility] [address] [id number] [address] [place] [phone] Jul, Other bipolar disorder F31.8 9 and Anxiety disorder, unspecified F41.9 [facility] [address] [id number] [address] [place] [phone] 18 Jul, 2015 Other bipolar disorder F31.8 9 and Fibromyalgia M79.7 [facility] [address] [id number] Jul, [facility] [address] [place] [id number] [place] [address] Jul, [facility] [address] [address] Jul, [facility] [address] [place] [id number] [place] [address] Jul, Other bipolar disorder F31.8 9 and Anxiety disorder, unspecified F41.9 [facility] [address] [id number] Jun, GERD (gastroesophageal reflu x disease) K21.9 [facility] [address] [id number] Jun, [facility] [address] [id number] May, [facility] [address] [id number] May, Diabetes E11.9 ; Back pain M 54.9 ; GERD (gastroesophageal reflux disease) K21.9 ; Hypertension I10 and Peripheral neuropathy G62.9 [facility] [address] [id number] Mar, [facility] [address] [id number] Mar, [facility] [address] [id number] Mar, Acute sinusitis J01.90 and O titis media, left H66.92 [facility] [address] [address] Feb, [place] [address] [id number] [address] [place] [phone] Feb, [facility] [address] [id number] [address] [place] [address] Feb, [facility] [address] [facility] [id number] [address] [place] [phone] Feb, [facility] [address] [facility] [id number] [address] [place] [phone] Jan, [facility] [address] [id number] [address] [place] [address] Jan, Diabetes 250.00 and Back higinio n 724.5 [facility] [address] [facility] [id number] [address] [place] [phone] Jan, [facility] [address] [facility] [id number] [address] [place] [address] Dec, Diabetes 250.00 ; Benign ess ential hypertension 401.1 and Allergic rhinitis 477.9 [facility] [address] [facility] [id number] [address] [place] [phone] Dec, [facility] [address] [facility] [id number] [address] [place] [phone] Dec, [facility] [address] [facility] [id number] [address] [place] [id number] Dec, Psychosis 298.9 [facility] [address] [facility] [id number] [address] [place] [address] Dec, Medication side effect 995.2 0 and Generalized anxiety disorder 300.02 [facility] [address] [id number] [address] [place] [address] Dec, Acquired cognitive dysfuncti on 294.9 [facility] [address] [facility] [id number] [address] [place] [address] Dec, [facility] [address] [facility] [id number] [address] [place] [phone] Dec, Unspecified myalgia and myos itis 729.1 and Generalized anxiety disorder 300.02 [facility] [address] [facility] [id number] [address] [place] [address] Nov, [facility] [address] [facility] [id number] [address] [place] [phone] Nov, [facility] [address] [facility] [id number] [address] [place] [address] Nov, [facility] [address] [facility] [id number] [address] [place] [address] Nov, Upper respiratory infection 465.9 and Chronic airway obstruction, not elsewhere classified 496 [facility] [address] [facility] [id number] [address] [place] [address] Nov, Hyponatremia 276.1 [facility] [address] [facility] [id number] [address] [place] [phone] Oct, [facility] [address] [facility] [id number] [address] [place] [id number] Oct, [facility] [address] [place] [id number] [address] [place] [phone] Oct, [facility] [address] [facility] [id number] [address] [place] [address] Oct, [facility] [address] [facility] [id number] [address] [place] [address] Oct, Hyponatremia 276.1 [facility] [address] [facility] [id number] [address] [place] [address] Oct, [facility] [address] [facility] [id number] [address] [place] [phone] Oct, [facility] [address] [facility] [id number] [address] [place] [address] Oct, Generalized anxiety disorder 300.02 [facility] [address] [facility] [id number] [address] [place] [address] Oct, Generalized anxiety disorder 300.02 and Diabetes 250.00 [facility] [address] [id number] [address] [place] [address], [place] [id number] 14 Aug, 2014 [facility] [address] [id number] [address] [place] [id number] Aug, [facility] [address] [id number] [address] [place] [phone] Jul, [facility] [address] [id number] [address] [place] [phone] Jul, [facility] [address] [id number] [address] [place] [address], [place] [id number] Jun, [facility] [address] [id number] [address] [place] [address], [place] [id number] Jun, [facility] [address] [id number] [address] [place] [address], [place] [id number] Jun, [facility] [address] [id number] [address] [place] [address], [place] [id number] Jun, [facility] [address] [id number] [address] [place] [address], [place] [id number] Jun, [facility] [address] [id number] [address] [place] [phone] May, [facility] [address] [id number] [address] [place] [address], [place] [id number] May, [facility] [address] [id number] [address] [place] [phone] Apr, [facility] [address] [id number] [address] [place] [address], [place] [id number] Apr, [facility] [address] [id number] [address] [place] [phone] Apr, [facility] [address] [id number] [address] [place] [phone] Apr, [facility] [address] [id number] [address] [place] [address], [place] [id number] Apr, [facility] [address] [id number] [address] [place] [address], [place] [id number] Apr, [facility] [address] [id number] [address] [place] [address], [place] [id number] Apr, [facility] [address] [id number] [address] [place] [address], [place] [id number] Apr, [facility] [address] [id number] [address] [place] [address], [place] [id number] Feb, [facility] [address] [id number] [address] [place] [address], [place] [id number] Feb, [facility] [address] [id number] [address] [place] [address], [place] [id number] Jan, [facility] [address] [id number] [address] [place] [address], [place] [id number] Jan, [facility] [address] [id number] [address] [place] [address], [place] [id number] Dec, [facility] [address] [id number] [address] [place] [address], [place] [id number] Dec, [facility] [address] [id number] [address] [place] [address], [place] [id number] Dec, [facility] [address] [id number] [address] [place] [phone] Nov, [facility] [address] [id number] [address] [place] [address], [place] [id number] Nov, [facility] [address] [id number] [address] [place] [address], [place] [address] Nov, [facility] [address] [id number] [address] [place] [phone] Oct, [facility] [address] [id number] [address] [place] [phone] Oct, [facility] [address] [id number] [address] [place] [address], [place] [id number] Oct, [facility] [address] [id number] [address] [place] [address], [place] [id number] September, [facility] [address] [id number] [address] [place] [address], [place] [id number] September, [facility] [address] [id number] [address] [place] [address], [place] [address] September, [facility] [address] [id number] [address] [place] [address], [place] [address] Aug, [facility] [address] [id number] [address] [place] [address], [place] [id number] Aug, [facility] [address] [id number] [address] [place] [address], [place] [id number] Aug, [facility] [address] [id number] [address] [place] [address], [place] [id number] 16 Aug, 2011 [facility] [address] [id number] [address] [place] [address], [place] [id number] Jul, [facility] [address] [id number] [address] [place] [address], [place] [address] Jun, [facility] [address] [id number] [address] [place] [address], [place] [id number] 14 Jun, 2011 [facility] [address] [id number] [address] [place] [address], [place] [id number] 13 Jun, 2011 [facility] [address] [id number] [address] [place] [address], [place] [id number] 07 Jun, 2011 [facility] [address] [id number] [address] [place] [address], [place] [id number] 03 Jun, 2011 [facility] [address] [id number] [address] [place] [address], [place] [address] May, [facility] [address] [id number] [address] [place] [address], [place] [address] May, [facility] [address] [id number] [address] [place] [address], [place] [id number] May, [facility] [address] [id number] [address] [place] [address], [place] [id number] May, [facility] [address] [id number] [address] [place] [address], [place] [id number] Apr, [facility] [address] [id number] [address] [place] [address], [place] [id number] Apr, [facility] [address] [id number] [address] [place] [address], [place] [address] Apr, [facility] [address] [id number] [address] [place] [address], [place] [address] Mar, [facility] [address] [id number] [address] [place] [address], [place] [id number] Mar, [facility] [address] [id number] [address] [place] [address], [place] [id number] Mar, [facility] [address] [id number] [address] [place] [address], [place] [id number] Feb, [facility] [address] [id number] [address] [place] [address], [place] [id number] Feb, [facility] [address] [id number] [address] [place] [address], [place] [id number] Feb, [facility] [address] [id number] [address] [place] [address], [place] [id number] Nov, [facility] [address] [id number] [address] [place] [address], [place] [id number] September, [facility] [address] [id number] [address] [place] [address], [place] [id number] Aug, [facility] [address] [id number] [address] [place] [id number] 14 Jul, 2010 [facility] [address] [facility] [id number] [address] [place] [phone] May, [facility] [address] [facility] [id number] [address] [place] [phone] Apr, [facility] [address] [facility] [id number] [address] [place] [id number] 30 Apr, 2010 [facility] [address] [facility] [id number] [address] [place] [id number] Apr, [facility] [address] [facility] [id number] [address] [place] [id number] Apr, [facility] [address] [facility] [id number] [address] [place] [phone] Apr, IMMUNIZATIONS No Known Immunizations SOCIAL HISTORY Never Assessed REASON FOR VISIT adderall 10/12/2017 PLAN OF CARE VITAL SIGNS MEDICATIONS Medication Instructions Dosage Frequency Start Date End Date Duration S tatus Adderall XR 20 mg Orally Once a day for depression 1 capsule in the morning Oct, 28 days Active RESULTS No Results [...]
--- OUTSIDE RECORDS SUMMARY | 2019-07-17 11:05 | XMS REPORT ---
Author Author Sujey GANDHI Organization [facility] Address [address] [place] [address] Care Team Providers Care Director Auto Name Role Phone WHIT GANDHI Unavailable PROBLEMS Type Condition ICD9-CM Code [id number] Code Onset Dates Condition S tatus SNOMED Code Problem Back pain M54.9 Active 450227037 Problem Diabetes E11.9 Active 99392434 Problem GERD (gastroesophageal reflux disease) K21.9 Active 074994912 Problem Hypertension I10 Active 4289151 3 Problem Anxiety disorder, unspecified F41.9 Active 040491655 Problem Other bipolar disorder F31.89 Active 29288452 Problem Fibromyalgia M79.7 Active 5691982 7 Problem Panic disorder with agoraphobia F40.01 Active 45261229 Problem Panlobular emphysema J43.1 Active 2578075 Problem Chronic obstructive pulmonary disease, unspecified J44.9 Active 28418058 Problem Akathisia G25.71 Active 649907820 Problem Lumbago with sciatica, left side M54.42 Active 864535017 Problem Migraine without aura and without status migrain osus, not intractable G43.009 Active 441816953 Problem Fibrocystic disease of right breast N60.11 Active 36803741 Problem Fibrocystic disease of left breast N60.12 Active 56742539 Problem Slow transit constipation K59.01 Acti ve 47465534 Problem Essential tremor G25.0 Active 609 369601 Problem Bipolar 1 disorder, depressed, moderate F31.32 Active 06774654 Problem Other chronic pain G89.29 Active 8 1135492 Problem Lumbago with sciatica, right side M54.41 Active 271073329 Problem Irritable bowel syndrome with constipation K58.1 Active 709726030 Problem Arthritis M19.90 Active 5650556 Problem Schizoaffective disorder, bipolar type F25.0 Active 12965332 Problem Irritable bowel syndrome with both constipation and diarrh ea K58.2 Active 94109644 Problem Attention deficit hyperactiv ity disorder (ADHD), predominantly inattentive type F90.0 Active 65432010 Problem Bipolar I disorder with depression F31.9 Active 98903663 Problem Chronic post-traumatic stress disorder (PTSD) F43. 12 Active 857646001 Problem Bipolar affective disorder, remission status unspecified F31.9 Active 70551619 Problem Mild persistent asthma without complication J45.30 Active 638168417 Problem Moderate persistent asthma without complication J4 5.40 Active 727690251 Problem Acute non-recurrent maxillary sinusitis J01.00 Active 36841295 Problem Bipolar 1 disorder, depressed, partial remission F 31.75 Active 43160452 ALLERGIES No Information ENCOUNTERS Encounter Location Date Diagnosis [place] [address] [facility] [id number] [address] [place] [address] Mar, [place] [address] [address] [facility] [id number] [address] [place] [phone] Dec, [place] [address] [address] [facility] [id number] [address] [place] [address] Dec, [place] [address] [address] [place] [id number] [address] [place] [address] Nov, Bipolar 1 disorder, depresse d, partial remission F31.75 and Panic disorder with agoraphobia F40.01 [facility] [address] [facility] [id number] [address] [place] [address] Nov, Panlobular emphysema J43.1 [facility] [address] [facility] [id number] [address] [place] [phone] Nov, Cerebrovascular accident (CV A) due to occlusion of right cerebellar artery I63.541 and Acute non-recurrent maxillary sinusitis J01.00 [facility] [address] [facility] [id number] [address] [place] [address] Nov, Panlobular emphysema J43.1 [facility] [address] [facility] [id number] [address] [place] [phone] Nov, [facility] [address] [facility] [id number] [address] [place] [address] Nov, [facility] [address] [facility] [id number] [address] [place] [phone] Nov, [facility] [address] [facility] [id number] [address] [place] [phone] Nov, [facility] [address] [facility] [id number] [address] [place] [address] Nov, [facility] [address] [facility] [id number] [address] [place] [phone] Nov, [facility] [address] [facility] [id number] [address] [place] [phone] Nov, [facility] [address] [facility] [id number] [address] [place] [address] Nov, Mild persistent asthma witho ut complication J45.30 and Irritable bowel syndrome with both constipation and diarrhea K58.2 [facility] [address] [facility] [id number] [address] [place] [address] Nov, [facility] [address] [facility] [id number] [address] [place] [address] Oct, [facility] [address] [facility] [id number] [address] [place] [phone] Oct, [facility] [address] [facility] [id number] [address] [place] [address] Oct, Type 2 diabetes mellitus wit h diabetic neuropathy, unspecified whether manager terminal insulin use E11.40 ; Diabetes E11.9 ; Slow transit constipation K59.01 ; Edema of both legs R60.0 and Dysfunction of right eustachian tube H69.81 [facility] [address] [facility] [id number] [address] [place] [phone] Oct, Frequent headaches R51 [facility] [address] [facility] [id number] [address] [place] [id number] Oct, [facility] [address] [facility] [id number] [address] [place] [phone] Oct, [facility] [address] [facility] [id number] [address] [place] [address] Oct, [facility] [address] [id number] [address] [place] [phone] Oct, [facility] [address] [facility] [id number] [address] [place] [address] Oct, [facility] [address] [facility] [id number] [address] [place] [address] Oct, [facility] [address] [facility] [id number] [address] [place] [address] Oct, [facility] [address] [facility] [id number] [address] [place] [phone] Oct, [facility] [address] [facility] [id number] [address] [place] [address] September, Frequent headaches R51 [facility] [address] [facility] [id number] [address] [place] [address] September, Bilateral otitis media with effusion H65.93 ; Dizziness R42 and Essential tremor G25.0 [facility] [address] [facility] [id number] [address] [place] [phone] September, Chronic obstructive pulmonar y disease, unspecified COPD type J44.9 [facility] [address] [facility] [id number] [address] [place] [address] September, Chronic obstructive pulmonar y disease, unspecified COPD type J44.9 [facility] [address] [facility] [id number] [address] [place] [address] September, Migraine without aura and wi thout status migrainosus, not intractable G43.009 [facility] [address] [facility] [id number] [address] [place] [phone] September, [facility] [address] [facility] [id number] [address] [place] [address] September, [facility] [address] [id number] [address] [place] [address] September, [facility] [address] [facility] [id number] [address] [place] [address] September, Frequent headaches R51 [facility] [address] [facility] [id number] [address] [place] [address] Aug, [facility] [address] [facility] [id number] [address] [place] [address] Aug, Breast mass, right N63.10 [place] [address] [facility] [id number] [address] [place] [address] Aug, Breast lump N63.0 [place] [address] [facility] [id number] [address] [place] [address] Aug, [place] [address] [facility] [id number] [address] [place] [phone] Aug, Bipolar affective disorder, remission status unspecified F31.9 and Diabetes E11.9 [place] [address] [facility] [id number] [address] [place] [address] Aug, Diabetes E11.9 ; Schizoaffec tive disorder, bipolar type F25.0 ; Pharyngitis due to other organism J02.8 ; Panlobular emphysema J43.1 and Irritable bowel syndrome with both constipation and diarrhea K58.2 [place] [address] [facility] [id number] [address] [place] [phone] Aug, Abnormal mammogram R92.8 [place] [address] [facility] [id number] [address] [place] [phone] Aug, [place] [address] [facility] [id number] [address] [place] [address] Aug, Bipolar 1 disorder, depresse d, moderate F31.32 ; Panic disorder with agoraphobia F40.01 and Chronic post-traumatic stress disorder (PTSD) F43.12 [place] [address] [place] [id number] [address] [place] [address] Aug, [facility] [address] [id number] [address] [place] [address] Aug, [facility] [address] [facility] [id number] [address] [place] [phone] Aug, [facility] [address] [facility] [id number] [address] [place] [address] Jul, [facility] [address] [facility] [id number] [address] [place] [address] Jul, Mild persistent asthma witho ut complication J45.30 [facility] [address] [facility] [id number] [address] [place] [address] Jul, Mild persistent asthma witho ut complication J45.30 [facility] [address] [facility] [id number] [address] [place] [id number] 15 Jul, 2017 Bipolar affective disorder, remission status unspecified F31.9 ; Diabetes E11.9 and Irritable bowel syndrome with constipation K58.1 [facility] [address] [facility] [id number] [address] [place] [id number] Jul, [facility] [address] [facility] [id number] [address] [place] [id number] Jul, [facility] [address] [facility] [id number] [address] [place] [phone] Jul, Frequent headaches R51 [facility] [address] [facility] [id number] [address] [place] [phone] Jul, [facility] [address] [id number] [address] [place] [id number] Jul, [facility] [address] [facility] [id number] [address] [place] [address] Jul, [facility] [address] [facility] [id number] [address] [place] [address] Jul, Frequent headaches R51 ; Fib rocystic disease of left breast N60.12 ; Fibrocystic disease of right breast N60.11 and Diabetes E11.9 [facility] [address] [facility] [id number] [address] [place] [address] Jul, [facility] [address] [facility] [id number] [address] [place] [address] Jul, [facility] [address] [facility] [id number] [address] [place] [address] 21 Jun, 2017 Exudative tonsillitis J03.90 [facility] [address] [facility] [id number] [address] [place] [address] 20 Jun, 2017 [facility] [address] [facility] [id number] [place] [phone] 19 Jun, 2017 [facility] [address] [place] [id number] [place] [address] 15 Jun, 2017 Mild persistent asthma witho ut complication J45.30 ; Chronic obstructive pulmonary disease, unspecified COPD type J44.9 and Exudative tonsillitis J03.90 [place] [address] [facility] [id number] [address] [place] [id number] 13 Jun, 2017 Encounter for immunization Z 23 [facility] [address] [facility] [id number] [address] [place] [phone] 12 Jun, 2017 [facility] [address] [facility] [id number] [address] [place] [address] 12 Jun, 2017 [facility] [address] [facility] [id number] [address] [place] [phone] 09 Jun, 2017 [facility] [address] [facility] [id number] [address] [place] [id number] 06 Jun, 2017 Tonsillitis J03.90 [facility] [address] [facility] [id number] [address] [place] [address] 05 Jun, 2017 [facility] [address] [facility] [id number] [address] [place] [phone] 03 Jun, 2017 Acute non-recurrent maxillar y sinusitis J01.00 [facility] [address] [facility] [id number] [address] [place] [id number] 02 Jun, 2017 [facility] [address] [facility] [id number] [address] [place] [address] May, [facility] [address] [facility] [id number] [address] [place] [phone] May, [facility] [address] [facility] [id number] [address] [place] [address] May, GERD (gastroesophageal reflu x disease) K21.9 [place] [address] [place] [id number] [address] [place] [address] May, Migraine without aura and wi thout status migrainosus, not intractable G43.009 [place] [address] [place] [id number] [address] [place] [address] May, [place] [address] [place] [id number] [address] [place] [address] May, [place] [address] [address] May, Panlobular emphysema J43.1 a nd Acute non-recurrent maxillary sinusitis J01.00 [place] [address] [place] [id number] [address] [place] [address] May, Bipolar 1 disorder, depresse d, moderate F31.32 ; Panic disorder with agoraphobia F40.01 and Akathisia G25.71 [place] [address] [place] [id number] [address] [place] [address] Apr, [place] [address] [place] [id number] [place] [phone] Apr, [place] [address] [place] [id number] [address] [place] [address] Apr, Acute non-recurrent maxillar y sinusitis J01.00 [facility] [address] [id number] [address] [place] [phone] 07 Apr, 2017 Panlobular emphysema J43.1 [facility] [address] [id number] [address] [place] [phone] 04 Apr, 2017 [facility] [address] [id number] [address] [place] [phone] 04 Apr, 2017 Exudative tonsillitis J03.90 and Sore throat J02.9 [facility] [address] [id number] [address] [place] [address] 17 Mar, 2017 [facility] [address] [id number] [address] [place] [phone] 15 Mar, 2017 Acute non-recurrent maxillar y sinusitis J01.00 [facility] [address] [facility] [id number] [address] [place] [address] 13 Mar, 2017 [facility] [address] [facility] [id number] [address] [place] [address] 09 Mar, 2017 Panlobular emphysema J43.1 a nd Diabetes E11.9 [facility] [address] [facility] [id number] [address] [place] [id number] 06 Mar, 2017 [facility] [address] [facility] [id number] [address] [place] [address] 24 Feb, 2017 Wheezing R06.2 and Acute rec urrent pansinusitis J01.41 [facility] [address] [id number] [address] [place] [address] Feb, [facility] [address] [facility] [id number] [address] [place] [address] Feb, Acute non-recurrent maxillar y sinusitis J01.00 [facility] [address] [facility] [id number] [address] [place] [address] Feb, Chronic obstructive pulmonar y disease, unspecified J44.9 [facility] [address] [facility] [id number] [address] [place] [address] 02 Feb, 2017 Hypoxemia R09.02 and Chronic obstructive pulmonary disease, unspecified J44.9 [facility] [address] [facility] [id number] [address] [place] [id number] 28 Jan, 2017 Bipolar 1 disorder, depresse d, moderate F31.32 ; Panic disorder with agoraphobia F40.01 ; Chronic post-traumatic stress disorder (PTSD) F43.12 ; Diabetes E11.9 and Moderate persistent asthma without complication J45.40 [facility] [address] [id number] [address] [place] [phone] 22 Jan, 2017 [facility] [address] [id number] [address] [place] [address] 19 Jan, 2017 Acute non-recurrent maxillar y sinusitis J01.00 [place] [address] [facility] [id number] [address] [place] [phone] 18 Jan, 2017 [facility] [address] [id number] [address] [place] [id number] 18 Jan, 2017 [facility] [address] [facility] [id number] [address] [place] [address] Jan, Moderate persistent asthma w [facility] complication J45.40 and Hypoxemia R09.02 [place] [address] [facility] [id number] [address] [place] [address] 11 Jan, 2017 Moderate persistent asthma w [facility] complication J45.40 and Hypoxemia R09.02 [facility] [address] [id number] [address] [place] [address] Jan, [facility] [address] [facility] [id number] [address] [place] [id number] Dec, Acute non-recurrent maxillar y sinusitis J01.00 [facility] [address] [facility] [id number] [address] [place] [address] Dec, Chronic obstructive pulmonar y disease, unspecified J44.9 [facility] [address] [id number] [address] [place] [id number] Dec, [facility] [address] [id number] [address] [place] [id number] Dec, Mild persistent asthma witho ut complication J45.30 and Other chronic pain G89.29 [facility] [address] [id number] [address] [place] [id number] Nov, [facility] [address] [id number] [address] [place] [id number] Nov, Acute non-recurrent maxillar y sinusitis J01.00 [facility] [address] [id number] [address] [place] [id number] Nov, [facility] [address] [id number] [address] [place] [phone] Nov, [facility] [address] [facility] [id number] [address] [place] [address] Oct, [facility] [address] [id number] [address] [place] [phone] Oct, Bipolar 1 disorder, depresse d, partial remission F31.75 ; Panic disorder with agoraphobia F40.01 and Chronic post-traumatic stress disorder (PTSD) F43.12 [facility] [address] [facility] [id number] [address] [place] [id number] Oct, Acute non-recurrent maxillar y sinusitis J01.00 [facility] [address] [id number] [address] [place] [phone] Oct, [facility] [address] [id number] [address] [place] [id number] Oct, Diabetes E11.9 [facility] [address] [facility] [id number] [address] [place] [id number] September, Diabetes E11.9 [facility] [address] [id number] [address] [place] [id number] September, Diabetes E11.9 and Sinus tac hycardia R00.0 [facility] [address] [id number] [address] [place] [id number] September, [facility] [address] [facility] [id number] [address] [place] [phone] September, [facility] [address] [facility] [id number] [address] [place] [id number] Aug, Diabetes E11.9 and Lumbago w ith sciatica, right side M54.41 [facility] [address] [id number] [address] [place] [id number] Aug, [facility] [address] [facility] [id number] [address] [place] [id number] Jul, Bipolar 1 disorder, depresse d, moderate F31.32 ; Panic disorder with agoraphobia F40.01 and Chronic post-traumatic stress disorder (PTSD) F43.12 [facility] [address] [facility] [id number] [address] [place] [id number] Jul, Sore throat J02.9 [facility] [address] [facility] [id number] [address] [place] [id number] Jul, [facility] [address] [facility] [id number] [address] [place] [id number] Jul, [facility] [address] [facility] [id number] [address] [place] [id number] Jul, [facility] [address] [facility] [id number] [address] [place] [id number] Jul, [facility] [address] [facility] [facility] [id number] [address] [place] [id number] Jul, Sore throat J02.9 and Pharyn gitis, unspecified etiology J02.9 [facility] [address] [facility] [id number] [address] [place] [id number] Jun, [facility] [address] [id number] [address] [place] [phone] Jun, Diabetes E11.9 [facility] [address] [id number] [address] [place] [phone] Jun, [facility] [address] [id number] [address] [place] [phone] Jun, [facility] [address] [id number] [address] [place] [address] Jun, [facility] [address] [id number] [address] [place] [phone] Jun, [facility] [address] [id number] [address] [place] [phone] Jun, [facility] [address] [id number] [address] [place] [phone] Jun, [facility] [address] [id number] [address] [place] [phone] Jun, [facility] [address] [id number] [address] [place] [id number] Jun, [facility] [address] [facility] [id number] [address] [place] [phone] May, Diabetes E11.9 ; Other chron ic pain G89.29 ; Acute recurrent maxillary sinusitis J01.01 ; Bipolar I disorder with depression F31.9 and Anxiety disorder, unspecified F41.9 [facility] [address] [id number] [address] [place] [phone] May, [facility] [address] [id number] [address] [place] [address] May, Diabetes E11.9 ; Bipolar I d isorder with depression F31.9 ; Anxiety disorder, unspecified F41.9 ; Other chronic pain G89.29 and Acute recurrent maxillary sinusitis J01.01 [facility] [address] [facility] [id number] [address] [place] [phone] May, [facility] [address] [id number] [address] [place] [id number] May, Attention deficit hyperactiv ity disorder (ADHD), predominantly inattentive type F90.0 [facility] [address] [id number] [address] [place] [address] May, [place] [address] [id number] [address] [place] [address] Apr, Attention deficit hyperactiv ity disorder (ADHD), predominantly inattentive type F90.0 and Non-seasonal allergic rhinitis due to other allergic trigger J30.89 [place] [address] [id number] [address] [place] [address] Apr, Bipolar 1 disorder, depresse d, moderate F31.32 ; Panic disorder with agoraphobia F40.01 and Chronic post-traumatic stress disorder (PTSD) F43.12 [place] [address] [facility] [id number] [address] [place] [address] Apr, Dental examination Z01.20 [place] [address] [id number] [address] [place] [phone] Mar, [place] [address] [facility] [id number] [address] [place] [phone] Mar, [place] [address] [facility] [id number] [address] [place] [phone] Mar, Bipolar I disorder with depr ession F31.9 and Anxiety disorder, unspecified F41.9 [place] [address] [id number] [address] [place] [id number] 08 Mar, 2016 Panic disorder with agorapho syd F40.01 ; Bipolar 1 disorder, depressed, moderate F31.32 and Chronic post-traumatic stress disorder (PTSD) F43.12 [place] [address] [facility] [id number] [address] [place] [phone] Mar, [place] [address] [facility] [id number] [address] [place] [address] Mar, Dental caries K02.9 [facility] [address] [facility] [id number] [address] [place] [address] Feb, Lumbago with sciatica, left side M54.42 ; Lumbago with sciatica, right side M54.41 and Other chronic pain G89.29 [place] [address] [place] [id number] [place] [phone] 17 Feb, 2016 [facility] [address] [place] [id number] [place] [address] 14 Feb, 2016 [place] [address] [id number] 13 Feb, 2016 Bipolar I disorder with depr ession F31.9 ; PTSD (post-traumatic stress disorder) F43.10 and Mood disorder F39 [place] [address] [id number] Feb, [place] [address] [address] 11 Feb, 2016 Dental examination Z01.20 [place] [address] [address] 07 Feb, 2016 [facility] [address] [place] [id number] [address] [place] [address] Feb, Acute bronchitis, unspecifie d organism J20.9 [place] [address] [place] [id number] [address] [place] [phone] 26 Jan, 2016 Mood disorder F39 ; Migraine without aura and without status migrainosus, not intractable G43.009 ; Irritable bowel syndrome, unspecified type K58.9 ; Diabetes E11.9 and Encounter for immunization Z23 [facility] [address] [place] [id number] [address] [place] [id number] 15 Jan, 2016 [place] [address] [address] Jan, [facility] [address] [facility] [id number] [address] [place] [address] Jan, [facility] [address] [facility] [id number] [address] [place] [address] Jan, [facility] [address] [facility] [id number] [address] [place] [address] Jan, [facility] [address] [facility] [id number] [address] [place] [address] Dec, Bipolar I disorder with depr ession F31.9 ; PTSD (post-traumatic stress disorder) F43.10 and Panic disorder with agoraphobia F40.01 [facility] [address] [facility] [id number] [address] [place] [address] Dec, Chronic obstructive pulmonar y disease, unspecified COPD type J44.9 ; Tremor R25.1 and Anxiety F41.9 [facility] [address] [facility] [id number] [address] [place] [address] Dec, [facility] [address] [facility] [id number] [address] [place] [address] Nov, Tremors of nervous system R2 5.1 and Cramping of feet R25.2 [facility] [address] [facility] [id number] [address] [place] [address] Nov, [facility] [address] [facility] [id number] [address] [place] [phone] Nov, [facility] [address] [facility] [id number] [address] [place] [address] Oct, Chronic obstructive pulmonar y disease, unspecified J44.9 [facility] [address] [facility] [id number] [address] [place] [address] Oct, [facility] [address] [facility] [id number] [address] [place] [address] Oct, Tremor R25.1 [facility] [address] [place] [id number] [address] [place] [address] Oct, Bipolar I disorder with depr ession F31.9 ; Diabetes E11.9 ; PTSD (post-traumatic stress disorder) F43.10 and Panic disorder with agoraphobia F40.01 [place] [address] [place] [id number] [address] [place] [address] Oct, Mood disorder F39 [place] [address] [id number] September, [place] [address] [address] September, Diabetes E11.9 ; Bipolar I d isorder with depression F31.9 ; PTSD (post-traumatic stress disorder) F43.10 and Panic disorder with agoraphobia F40.01 [place] [address] [address] September, Mood disorder F39 ; Schizoaf fective disorder, unspecified type F25.9 ; Arthritis M19.90 ; Tremor R25.1 ; Acute non-recurrent frontal sinusitis J01.10 and Blood in stool K92.1 [place] [address] [address] September, [place] [address] [address] September, Chronic obstructive pulmonar y disease, unspecified J44.9 [place] [address] [place] [id number] [address] [place] [address] September, Diabetes E11.9 [place] [address] [address] Aug, Other bipolar disorder F31.8 9 and Anxiety disorder, unspecified F41.9 [place] [address] [place] [id number] [address] [place] [address] Aug, [place] [address] [address] Aug, Diabetes E11.9 [facility] [address] [id number] [address] [place] [address] 18 Aug, 2015 [facility] [address] [id number] [address] [place] [id number] 14 Aug, 2015 Diabetes E11.9 ; Fatigue R53 .83 and Dizziness R42 [facility] [address] [id number] [address] [place] [address] Aug, Other bipolar disorder F31.8 9 [facility] [address] [id number] [address] [place] [id number] 07 Aug, 2015 Generalized anxiety disorder F41.1 [facility] [address] [id number] [address] [place] [address] Aug, Other bipolar disorder F31.8 9 and Anxiety disorder, unspecified F41.9 [facility] [address] [id number] [address] [place] [phone] Aug, [facility] [address] [id number] [address] [place] [address] 29 Jul, 2015 [facility] [address] [id number] [address] [place] [id number] 24 Jul, 2015 [facility] [address] [id number] [address] [place] [address] Jul, Bronchitis J40 [facility] [address] [id number] [address] [place] [address] Jul, Anxiety disorder F41.9 [facility] [address] [id number] [address] [place] [address] Jul, Other bipolar disorder F31.8 9 and Anxiety disorder, unspecified F41.9 [facility] [address] [id number] [address] [place] [id number] 18 Jul, 2015 Other bipolar disorder F31.8 9 and Fibromyalgia M79.7 [facility] [address] [id number] [address] [place] [address] Jul, [facility] [address] [facility] [id number] [address] [place] [address] Jul, [facility] [address] [facility] [id number] [address] [place] [address] Jul, [facility] [address] [place] [id number] [place] [address] Jul, Other bipolar disorder F31.8 9 and Anxiety disorder, unspecified F41.9 [facility] [address] [place] [id number] [place] [phone] Jun, GERD (gastroesophageal reflu x disease) K21.9 [facility] [address] [place] [id number] [place] [address] Jun, [facility] [address] [address] May, [facility] [address] [address] May, Diabetes E11.9 ; Back pain M 54.9 ; GERD (gastroesophageal reflux disease) K21.9 ; Hypertension I10 and Peripheral neuropathy G62.9 [facility] [address] [place] [id number] [address] [place] [address] Mar, [facility] [address] [address] Mar, [facility] [address] [address] Mar, Acute sinusitis J01.90 and O titis media, left H66.92 [facility] [address] [place] [id number] [address] [place] [phone] Feb, [facility] [address] [address] Feb, [facility] [address] [place] [address] 15 Feb, 2015 [facility] [address] [place] [id number] [place] [address] Feb, [facility] [address] [place] [id number] [place] [address] Jan, [facility] [address] [address] Jan, Diabetes 250.00 and Back higinio n 724.5 [facility] [address] [place] [id number] [place] [phone] Jan, [facility] [address] [address] Dec, Diabetes 250.00 ; Benign ess ential hypertension 401.1 and Allergic rhinitis 477.9 [facility] [address] [address] Dec, [facility] [address] [address] Dec, [facility] [address] [address] Dec, Psychosis 298.9 [facility] [address] [address] Dec, Medication side effect 995.2 0 and Generalized anxiety disorder 300.02 [facility] [address] [place] [id number] [address] [place] [address] Dec, Acquired cognitive dysfuncti on 294.9 [facility] [address] [address] Dec, [facility] [address] [address] Dec, Unspecified myalgia and myos itis 729.1 and Generalized anxiety disorder 300.02 [facility] [address] [place] [id number] [place] [address] [place] [address] Nov, [facility] [address] [id number] [address] [place] [address] Nov, [facility] [address] [id number] [address] [place] [phone] Nov, [facility] [address] [id number] [address] [place] [address] Nov, Upper respiratory infection 465.9 and Chronic airway obstruction, not elsewhere classified 496 [facility] [address] [id number] [address] [place] [address] Nov, Hyponatremia 276.1 [facility] [address] [id number] [address] [place] [address] Oct, [facility] [address] [facility] [id number] [address] [place] [address] Oct, [facility] [address] [id number] [address] [place] [phone] Oct, [facility] [address] [id number] [address] [place] [address] Oct, [facility] [address] [facility] [id number] [address] [place] [address] Oct, Hyponatremia 276.1 [facility] [address] [id number] [address] [place] [address] Oct, [facility] [address] [facility] [id number] [address] [place] [address] Oct, [facility] [address] [id number] [address] [place] [address] Oct, Generalized anxiety disorder 300.02 [facility] [address] [facility] [id number] [address] [place] [address] Oct, Generalized anxiety disorder 300.02 and Diabetes 250.00 [facility] [address] [id number] [address] [place] [address] 14 Aug, 2014 [facility] [address] [id number] [address] [place] [address], [place] [address] 13 Aug, 2014 [facility] [address] [id number] [address] [place] [address], [place] [address] Jul, [facility] [address] [id number] [address] [place] [address], [place] [address] Jul, [facility] [address] [id number] [address] [place] [address], [place] [address] Jun, [facility] [address] [id number] [address] [place] [address], [place] [address] Jun, [facility] [address] [id number] [address] [place] [address], [place] [address] Jun, [facility] [address] [id number] [address] [place] [address], [place] [address] Jun, [facility] [address] [id number] [address] [place] [address], [place] [address] Jun, [facility] [address] [id number] [address] [place] [address], [place] [address] May, [facility] [address] [id number] [address] [place] [address], [place] [address] May, [facility] [address] [id number] [address] [place] [address], [place] [address] Apr, [facility] [address] [id number] [address] [place] [address], [place] [address] 20 Apr, 2013 [facility] [address] [id number] [address] [place] [address], [place] [address] 18 Apr, 2013 [facility] [address] [id number] [address] [place] [address], [place] [address] 18 Apr, 2013 [facility] [address] [id number] [address] [place] [address], [place] [address] 17 Apr, 2013 [facility] [address] [id number] [address] [place] [address], [place] [address] Apr, [facility] [address] [id number] [address] [place] [address], [place] [address] Apr, [facility] [address] [id number] [address] [place] [address], [place] [address] Apr, [facility] [address] [id number] [address] [place] [address], [place] [address] Feb, [facility] [address] [id number] [address] [place] [address], [place] [address] Feb, [facility] [address] [id number] [address] [place] [address], [place] [address] Jan, [facility] [address] [id number] [address] [place] [address], [place] [address] Jan, [facility] [address] [id number] [address] [place] [address], [place] [address] Dec, [facility] [address] [id number] [address] [place] [address], [place] [address] Dec, [facility] [address] [id number] [address] [place] [address], [place] [address] Dec, [facility] [address] [id number] [address] [place] [address], [place] [address] Nov, [facility] [address] [id number] [address] [place] [address], [place] [address] Nov, [facility] [address] [id number] [address] [place] [address], [place] [address] Nov, [facility] [address] [id number] [address] [place] [address], [place] [address] Oct, [facility] [address] [id number] [address] [place] [address], [place] [address] Oct, [facility] [address] [id number] [address] [place] [address], [place] [address] Oct, [facility] [address] [id number] [address] [place] [address], [place] [address] September, [facility] [address] [id number] [address] [place] [address], [place] [address] September, [facility] [address] [id number] [address] [place] [address], [place] [address] September, [facility] [address] [id number] [address] [place] [address], [place] [address] Aug, [facility] [address] [id number] [address] [place] [address], [place] [address] Aug, [facility] [address] [id number] [address] [place] [address], [place] [address] Aug, [facility] [address] [id number] [address] [place] [address], [place] [address] Aug, [facility] [address] [id number] [address] [place] [address], [place] [address] Jul, [facility] [address] [id number] [address] [place] [address], [place] [address] Jun, [facility] [address] [id number] [address] [place] [address], [place] [id number] 14 Jun, 2011 [facility] [address] [id number] [address] [place] [address], [place] [address] Jun, [facility] [address] [id number] [address] [place] [address], [place] [id number] 07 Jun, 2011 [facility] [address] [id number] [address] [place] [address], [place] [id number] 03 Jun, 2011 [facility] [address] [id number] [address] [place] [address], [place] [address] May, [facility] [address] [id number] [address] [place] [address], [place] [id number] May, [facility] [address] [id number] [address] [place] [address], [place] [id number] 09 May, 2011 [facility] [address] [id number] [address] [place] [address], [place] [id number] May, [facility] [address] [id number] [address] [place] [address], [place] [address] Apr, [facility] [address] [id number] [address] [place] [address], [place] [id number] Apr, [facility] [address] [id number] [address] [place] [address], [place] [address] Apr, [facility] [address] [id number] [address] [place] [address], [place] [address] Mar, [facility] [address] [id number] [address] [place] [address], [place] [id number] Mar, [facility] [address] [id number] [address] [place] [address], [place] [id number] Mar, [facility] [address] [id number] [address] [place] [address], [place] [id number] Feb, [facility] [address] [id number] [address] [place] [address], [place] [id number] Feb, [facility] [address] [id number] [address] [place] [address], [place] [id number] Feb, [facility] [address] [id number] [address] [place] [address], [place] [id number] Nov, [facility] [address] [id number] [address] [place] [address], [place] [id number] September, [facility] [address] [id number] [address] [place] [address], [place] [id number] Aug, [facility] [address] [id number] [address] [place] [address], [place] [id number] 14 Jul, 2010 [facility] [address] [id number] [address] [place] [address], [place] [id number] May, [facility] [address] [facility] [id number] [address] [place] [id number] Apr, [facility] [address] [facility] [id number] [address] [place] [id number] Apr, [facility] [address] [facility] [id number] [address] [place] [id number] Apr, [facility] [address] [facility] [id number] [address] [place] [id number] Apr, [facility] [address] [facility] [id number] [address] [place] [phone] Apr, IMMUNIZATIONS No Known Immunizations SOCIAL HISTORY Never Assessed REASON FOR VISIT COPD update PLAN OF CARE VITAL SIGNS MEDICATIONS Medication Instructions Dosage Frequency Start Date End Date Duration S tatus Breo Ellipta 200-25 MCG/INH Inhalation Once a day 1 puff 24h 30 days Active Anoro Ellipta 62.5-25 MCG/INH Inhalation Once a day 1 puff 24h Aug, 30 days Active RESULTS No Results PROCEDURES [...]
--- OUTSIDE RECORDS SUMMARY | 2019-07-17 11:05 | XMS REPORT ---
Author Author Sujey GANDHI Organization [facility] Address [address] [place] [address] Care Team Providers Care Senior Recruiter Name Role Phone WHIT GANDHI Unavailable PROBLEMS Type Condition ICD9-CM Code NCM32-TI Code Onset Dates Condition S tatus SNOMED Code Problem Back pain M54.9 Active 714565315 Problem Diabetes E11.9 Active 50512616 Problem GERD (gastroesophageal reflux disease) K21.9 Active 647255035 Problem Hypertension I10 Active 4203591 3 Problem Anxiety disorder, unspecified F41.9 Active 912002150 Problem Other bipolar disorder F31.89 Active 18028168 Problem Fibromyalgia M79.7 Active 8502679 7 Problem Panic disorder with agoraphobia F40.01 Active 50649425 Problem Panlobular emphysema J43.1 Active 7140667 Problem Chronic obstructive pulmonary disease, unspecified J44.9 Active 96205209 Problem Akathisia G25.71 Active 577741228 Problem Lumbago with sciatica, left side M54.42 Active 335738613 Problem Migraine without aura and without status migrain osus, not intractable G43.009 Active 629961899 Problem Fibrocystic disease of right breast N60.11 Active 62255464 Problem Fibrocystic disease of left breast N60.12 Active 96858804 Problem Slow transit constipation K59.01 Acti ve 55203599 Problem Essential tremor G25.0 Active 609 063199 Problem Bipolar 1 disorder, depressed, moderate F31.32 Active 87680346 Problem Other chronic pain G89.29 Active 8 8768370 Problem Lumbago with sciatica, right side M54.41 Active 291608634 Problem Irritable bowel syndrome with constipation K58.1 Active 435037125 Problem Arthritis M19.90 Active 7370826 Problem Schizoaffective disorder, bipolar type F25.0 Active 65147442 Problem Irritable bowel syndrome with both constipation and diarrh ea K58.2 Active 49760019 Problem Attention deficit hyperactiv ity disorder (ADHD), predominantly inattentive type F90.0 Active 13260796 Problem Bipolar I disorder with depression F31.9 Active 94371122 Problem Chronic post-traumatic stress disorder (PTSD) F43. 12 Active 760211298 Problem Bipolar affective disorder, remission status unspecified F31.9 Active 01718724 Problem Mild persistent asthma without complication J45.30 Active 732801439 Problem Moderate persistent asthma without complication J4 5.40 Active 683721118 Problem Acute non-recurrent maxillary sinusitis J01.00 Active 53454030 Problem Bipolar 1 disorder, depressed, partial remission F 31.75 Active 46381865 ALLERGIES Substance Reaction Event Type Date Status Penicillin V Potassium Unknown Drug Allergy September, Activ e Effexor anaphylaxis Drug Allergy September, Active Darvocet-N 50 Unknown Drug Allergy September, Active Cefdinir Swelling Drug Allergy September, Active Benadryl vomiting/swelling Drug Allergy September, Active ENCOUNTERS Encounter Location Date Diagnosis [place] [address] [place] [id number] [place] [id number] Mar, [place] [address] [place] [id number] [address] [place] [id number] Dec, [place] [address] [place] [id number] [address] [place] [id number] Dec, [place] [address] [place] [id number] [address] [place] [id number] Nov, Bipolar 1 disorder, depresse d, partial remission F31.75 and Panic disorder with agoraphobia F40.01 [place] [address] [place] [id number] [place] [id number] Nov, Panlobular emphysema J43.1 [facility] [address] [place] [address] [id number] [place] [address] Nov, Cerebrovascular accident (CV A) due to occlusion of right cerebellar artery I63.541 and Acute non-recurrent maxillary sinusitis J01.00 [facility] [address] [facility] [id number] [address] [place] [id number] Nov, Panlobular emphysema J43.1 [facility] [address] [id number] [address] [place] [id number] Nov, [facility] [address] [id number] [address] [place] [phone] Nov, [facility] [address] [facility] [id number] [address] [place] [phone] Nov, [facility] [address] [id number] [address] [place] [id number] Nov, [facility] [address] [id number] [address] [place] [id number] Nov, [facility] [address] [facility] [id number] [address] [place] [id number] Nov, [facility] [address] [facility] [id number] [address] [place] [id number] Nov, [facility] [address] [facility] [id number] [address] [place] [address] Nov, Mild persistent asthma witho ut complication J45.30 and Irritable bowel syndrome with both constipation and diarrhea K58.2 [facility] [address] [facility] [id number] [address] [place] [address] Nov, [facility] [address] [facility] [id number] [address] [place] [id number] Oct, [facility] [address] [facility] [id number] [address] [place] [id number] Oct, [facility] [address] [facility] [id number] [address] [place] [id number] Oct, Type 2 diabetes mellitus wit h diabetic neuropathy, unspecified whether bed bug exterminator insulin use E11.40 ; Diabetes E11.9 ; Slow transit constipation K59.01 ; Edema of both legs R60.0 and Dysfunction of right eustachian tube H69.81 [facility] [address] [facility] [id number] [address] [place] [id number] Oct, Frequent headaches R51 [facility] [address] [id number] [address] [place] [id number] Oct, [facility] [address] [id number] [address] [place] [id number] Oct, [facility] [address] [id number] [address] [place] [id number] Oct, [facility] [address] [id number] [address] [place] [id number] Oct, [facility] [address] [id number] [address] [place] [phone] Oct, [facility] [address] [id number] [address] [place] [phone] Oct, [facility] [address] [id number] [address] [place] [id number] Oct, [facility] [address] [id number] [address] [place] [phone] Oct, [facility] [address] [id number] [address] [place] [id number] September, Frequent headaches R51 [facility] [address] [facility] [id number] [address] [place] [address] September, Bilateral otitis media with effusion H65.93 ; Dizziness R42 and Essential tremor G25.0 [facility] [address] [id number] [address] [place] [id number] September, Chronic obstructive pulmonar y disease, unspecified COPD type J44.9 [facility] [address] [facility] [id number] [address] [place] [id number] September, Chronic obstructive pulmonar y disease, unspecified COPD type J44.9 [facility] [address] [facility] [id number] [address] [place] [address] September, Migraine without aura and wi thout status migrainosus, not intractable G43.009 [facility] [address] [id number] [address] [place] [address] September, [facility] [address] [id number] [address] [place] [id number] September, [facility] [address] [id number] [address] [place] [address] September, [facility] [address] [id number] [address] [place] [id number] September, Frequent headaches R51 [facility] [address] [id number] [address] [place] [id number] Aug, [facility] [address] [facility] [id number] [address] [place] [address] Aug, Breast mass, right N63.10 [facility] [address] [facility] [id number] [address] [place] [id number] Aug, Breast lump N63.0 [facility] [address] [id number] [address] [place] [id number] Aug, [facility] [address] [facility] [id number] [address] [place] [address] Aug, Bipolar affective disorder, remission status unspecified F31.9 and Diabetes E11.9 [facility] [address] [facility] [id number] [address] [place] [id number] Aug, Diabetes E11.9 ; Schizoaffec tive disorder, bipolar type F25.0 ; Pharyngitis due to other organism J02.8 ; Panlobular emphysema J43.1 and Irritable bowel syndrome with both constipation and diarrhea K58.2 [facility] [address] [facility] [id number] [address] [place] [id number] Aug, Abnormal mammogram R92.8 [facility] [address] [facility] [id number] [address] [place] [id number] Aug, [facility] [address] [facility] [id number] [address] [place] [id number] Aug, Bipolar 1 disorder, depresse d, moderate F31.32 ; Panic disorder with agoraphobia F40.01 and Chronic post-traumatic stress disorder (PTSD) F43.12 [facility] [address] [id number] [address] [place] [id number] Aug, [facility] [address] [place] [id number] [place] [address] Aug, [facility] [address] [facility] [id number] [address] [place] [id number] Aug, [facility] [address] [place] [id number] [place] [address] Jul, [facility] [address] [place] [id number] [place] [address] Jul, Mild persistent asthma witho ut complication J45.30 [facility] [address] [place] [id number] [place] [id number] Jul, Mild persistent asthma witho ut complication J45.30 [facility] [address] [id number] Jul, Bipolar affective disorder, remission status unspecified F31.9 ; Diabetes E11.9 and Irritable bowel syndrome with constipation K58.1 [facility] [id number] [place] [address] Jul, [facility] [address] [place] [id number] [address] [place] [id number] Jul, [facility] [address] [facility] [id number] [address] [place] [address] Jul, Frequent headaches R51 [facility] [address] [facility] [id number] [address] [place] [id number] 07 Jul, 2017 [facility] [address] [place] [id number] [address] [place] [id number] Jul, [facility] [address] [place] [id number] [address] [place] [address] Jul, [place] [address] [id number] Jul, Frequent headaches R51 ; Fib rocystic disease of left breast N60.12 ; Fibrocystic disease of right breast N60.11 and Diabetes E11.9 [place] [address] [address] Jul, [facility] [address] [facility] [id number] [place] [address] Jul, [place] [address] [address] 21 Jun, 2017 Exudative tonsillitis J03.90 [place] [address] [id number] 20 Jun, 2017 [place] [address] [address] 19 Jun, 2017 [place] [address] [address] 15 Jun, 2017 Mild persistent asthma witho ut complication J45.30 ; Chronic obstructive pulmonary disease, unspecified COPD type J44.9 and Exudative tonsillitis J03.90 [place] [address] [place] [id number] [place] [id number] 13 Jun, 2017 Encounter for immunization Z 23 [place] [address] [facility] [id number] [address] [place] [id number] Jun, [place] [address] [id number] Jun, [place] [address] [place] [id number] [address] [place] [id number] 09 Jun, 2017 [facility] [address] [place] [id number] [place] [id number] 06 Jun, 2017 Tonsillitis J03.90 [facility] [address] [address] 05 Jun, 2017 [facility] [address] [address] 03 Jun, 2017 Acute non-recurrent maxillar y sinusitis J01.00 [facility] [address] [address] 02 Jun, 2017 [facility] [address] [address] May, [facility] [address] [address] May, [facility] [address] [address] May, GERD (gastroesophageal reflu x disease) K21.9 [place] [address] [address] May, Migraine without aura and wi thout status migrainosus, not intractable G43.009 [facility] [address] [address] May, [facility] [address] [address] May, [facility] [address] [address] May, Panlobular emphysema J43.1 a nd Acute non-recurrent maxillary sinusitis J01.00 [facility] [address] [id number] May, Bipolar 1 disorder, depresse d, moderate F31.32 ; Panic disorder with agoraphobia F40.01 and Akathisia G25.71 [facility] [address] [address] Apr, [place] [address] [id number] [address] [place] [id number] 14 Apr, 2017 [facility] [address] [id number] [address] [place] [address] Apr, Acute non-recurrent maxillar y sinusitis J01.00 [facility] [address] [id number] [address] [place] [id number] 07 Apr, 2017 Panlobular emphysema J43.1 [facility] [address] [id number] [address] [place] [id number] 04 Apr, 2017 [facility] [address] [id number] [address] [place] [id number] 04 Apr, 2017 Exudative tonsillitis J03.90 and Sore throat J02.9 [facility] [address] [facility] [id number] [address] [place] [id number] 17 Mar, 2017 [facility] [address] [id number] [address] [place] [id number] 15 Mar, 2017 Acute non-recurrent maxillar y sinusitis J01.00 [facility] [address] [id number] [address] [place] [id number] 13 Mar, 2017 [facility] [address] [id number] [address] [place] [id number] 09 Mar, 2017 Panlobular emphysema J43.1 a nd Diabetes E11.9 [facility] [address] [id number] [address] [place] [address] Mar, [facility] [address] [id number] [address] [place] [address] Feb, Wheezing R06.2 and Acute rec urrent pansinusitis J01.41 [facility] [address] [id number] [address] [place] [address] Feb, [facility] [address] [facility] [id number] [address] [place] [address] Feb, Acute non-recurrent maxillar y sinusitis J01.00 [facility] [address] [id number] [address] [place] [id number] 16 Feb, 2017 Chronic obstructive pulmonar y disease, unspecified J44.9 [facility] [address] [id number] [address] [place] [id number] 02 Feb, 2017 Hypoxemia R09.02 and Chronic obstructive pulmonary disease, unspecified J44.9 [facility] [address] [id number] [address] [place] [id number] 28 Jan, 2017 Bipolar 1 disorder, depresse d, moderate F31.32 ; Panic disorder with agoraphobia F40.01 ; Chronic post-traumatic stress disorder (PTSD) F43.12 ; Diabetes E11.9 and Moderate persistent asthma without complication J45.40 [facility] [address] [id number] [address] [place] [id number] 22 Jan, 2017 [facility] [address] [id number] [address] [place] [id number] 19 Jan, 2017 Acute non-recurrent maxillar y sinusitis J01.00 [facility] [address] [id number] [address] [place] [id number] 18 Jan, 2017 [facility] [address] [id number] [address] [place] [id number] 18 Jan, 2017 [facility] [address] [id number] [address] [place] [id number] Jan, [facility] and Hypoxemia R09.02 [facility] [address] [id number] [address] [place] [id number] 11 Jan, 2017 [facility] J[facility].40 and Hypoxemia R09.02 [facility] [address] [id number] [address] [place] [id number] Jan, [facility] [address] [id number] [address] [place] [id number] Dec, Acute non-recurrent maxillar y sinusitis J01.00 [facility] [address] [id number] [address] [place] [address] Dec, Chronic obstructive pulmonar y disease, unspecified J44.9 [facility] [address] [id number] [address] [place] [id number] Dec, [facility] [address] [id number] [address] [place] [id number] Dec, Mild persistent asthma witho ut complication J45.30 and Other chronic pain G89.29 [facility] [address] [id number] [address] [place] [id number] Nov, [facility] [address] [id number] [address] [place] [id number] Nov, Acute non-recurrent maxillar y sinusitis J01.00 [facility] [address] [id number] [address] [place] [id number] Nov, [facility] [address] [id number] [address] [place] [id number] Nov, [facility] [address] [id number] [address] [place] [id number] Oct, [facility] [address] [id number] [address] [place] [id number] Oct, Bipolar 1 disorder, depresse d, partial remission F31.75 ; Panic disorder with agoraphobia F40.01 and Chronic post-traumatic stress disorder (PTSD) F43.12 [facility] [address] [id number] [address] [place] [id number] Oct, Acute non-recurrent maxillar y sinusitis J01.00 [facility] [address] [id number] [address] [place] [address] Oct, [facility] [address] [facility] [id number] [address] [place] [id number] Oct, Diabetes E11.9 [facility] [address] [id number] [address] [place] [id number] September, Diabetes E11.9 [facility] [address] [id number] [address] [place] [address] September, Diabetes E11.9 and Sinus tac hycardia R00.0 [facility] [address] [id number] [address] [place] [id number] September, [facility] [address] [facility] [id number] [address] [place] [id number] September, [facility] [address] [facility] [id number] [address] [place] [id number] Aug, Diabetes E11.9 and Lumbago w ith sciatica, right side M54.41 [facility] [address] [facility] [id number] [address] [place] [id number] Aug, [facility] [address] [facility] [id number] [address] [place] [id number] Jul, Bipolar 1 disorder, depresse d, moderate F31.32 ; Panic disorder with agoraphobia F40.01 and Chronic post-traumatic stress disorder (PTSD) F43.12 [facility] [address] [facility] [id number] [address] [place] [id number] Jul, Sore throat J02.9 [facility] [address] [facility] [id number] [address] [place] [id number] Jul, [facility] [address] [facility] [id number] [address] [place] [id number] Jul, [facility] [address] [facility] [id number] [address] [place] [id number] Jul, [facility] [address] [facility] [id number] [address] [place] [id number] Jul, [facility] [address] [facility] [id number] [address] [place] [id number] Jul, Sore throat J02.9 and Pharyn gitis, unspecified etiology J02.9 [facility] [address] [id number] [address] [place] [id number] Jun, [facility] [address] [id number] [address] [place] [id number] Jun, Diabetes E11.9 [facility] [address] [facility] [id number] [address] [place] [id number] Jun, [facility] [address] [id number] [address] [place] [id number] Jun, [facility] [address] [facility] [id number] [address] [place] [id number] Jun, [facility] [address] [facility] [id number] [address] [place] [id number] Jun, [facility] [address] [facility] [id number] [address] [place] [id number] Jun, [facility] [address] [facility] [id number] [address] [place] [id number] Jun, [facility] [address] [facility] [id number] [address] [place] [id number] Jun, [facility] [address] [facility] [id number] [address] [place] [id number] Jun, [facility] [address] [facility] [id number] [address] [place] [id number] May, Diabetes E11.9 ; Other chron ic pain G89.29 ; Acute recurrent maxillary sinusitis J01.01 ; Bipolar I disorder with depression F31.9 and Anxiety disorder, unspecified F41.9 [facility] [address] [facility] [id number] [address] [place] [id number] May, [facility] [address] [facility] [id number] [address] [place] [id number] May, Diabetes E11.9 ; Bipolar I d isorder with depression F31.9 ; Anxiety disorder, unspecified F41.9 ; Other chronic pain G89.29 and Acute recurrent maxillary sinusitis J01.01 [place] [address] [address] [facility] [id number] [address] [place] [address] May, [place] [address] [address] [facility] [id number] [address] [place] [id number] May, Attention deficit hyperactiv ity disorder (ADHD), predominantly inattentive type F90.0 [place] [address] [address] [facility] [id number] [address] [place] [address] May, [place] [address] [address] [facility] [id number] [place] [address] Apr, Attention deficit hyperactiv ity disorder (ADHD), predominantly inattentive type F90.0 and Non-seasonal allergic rhinitis due to other allergic trigger J30.89 [place] [address] [address] [place] [id number] [address] [place] [address] 15 Apr, 2016 Bipolar 1 disorder, depresse d, moderate F31.32 ; Panic disorder with agoraphobia F40.01 and Chronic post-traumatic stress disorder (PTSD) F43.12 [place] [address] [address] [place] [id number] [address] [place] [address] 06 Apr, 2016 Dental examination Z01.20 [place] [address] [address] [facility] [id number] [address] [place] [address] Mar, [place] [address] [address] [facility] [id number] [address] [place] [address] Mar, [place] [address] [address] [facility] [id number] [address] [place] [id number] 17 Mar, 2016 Bipolar I disorder with depr ession F31.9 and Anxiety disorder, unspecified F41.9 [place] [address] [address] [facility] [id number] [address] [place] [address] 08 Mar, 2016 Panic disorder with agorapho syd F40.01 ; Bipolar 1 disorder, depressed, moderate F31.32 and Chronic post-traumatic stress disorder (PTSD) F43.12 [place] [address] [id number] [address] [place] [address] Mar, [place] [address] [address] [facility] [id number] [address] [place] [address] Mar, Dental caries K02.9 [place] [address] [address] [facility] [id number] [address] [place] [address] Feb, Lumbago with sciatica, left side M54.42 ; Lumbago with sciatica, right side M54.41 and Other chronic pain G89.29 [place] [address] [address] [facility] [id number] [address] [place] [id number] 17 Feb, 2016 [place] [address] [address] [facility] [id number] [address] [place] [address] Feb, [place] [address] [place] [id number] [place] [address] Feb, Bipolar I disorder with depr ession F31.9 ; PTSD (post-traumatic stress disorder) F43.10 and Mood disorder F39 [place] [address] [address] [facility] [id number] [address] [place] [id number] Feb, [place] [address] [address] [facility] [id number] [address] [place] [address] Feb, Dental examination Z01.20 [place] [address] [id number] [address] [place] [id number] 07 Feb, 2016 [facility] [address] [facility] [id number] [address] [place] [id number] 03 Feb, 2016 Acute bronchitis, unspecifie d organism J20.9 [place] [address] [address] [facility] [id number] [address] [place] [address] 26 Jan, 2016 Mood disorder F39 ; Migraine without aura and without status migrainosus, not intractable G43.009 ; Irritable bowel syndrome, unspecified type K58.9 ; Diabetes E11.9 and Encounter for immunization Z23 [facility] [address] [facility] [id number] [address] [place] [address] Jan, [facility] [address] [facility] [id number] [address] [place] [phone] Jan, [facility] [address] [facility] [id number] [address] [place] [address] Jan, [facility] [address] [facility] [id number] [address] [place] [phone] Jan, [facility] [address] [facility] [id number] [address] [place] [address] Jan, [facility] [address] [facility] [id number] [address] [place] [id number] Dec, Bipolar I disorder with depr ession F31.9 ; PTSD (post-traumatic stress disorder) F43.10 and Panic disorder with agoraphobia F40.01 [facility] [address] [place] [id number] [address] [place] [id number] Dec, Chronic obstructive pulmonar y disease, unspecified COPD type J44.9 ; Tremor R25.1 and Anxiety F41.9 [facility] [address] [place] [id number] [address] [place] [address] Dec, [facility] [address] [place] [id number] [address] [place] [id number] Nov, Tremors of nervous system R2 5.1 and Cramping of feet R25.2 [facility] [address] [facility] [id number] [address] [place] [address] Nov, [facility] [address] [facility] [id number] [address] [place] [address] Nov, [facility] [address] [facility] [id number] [address] [place] [address] Oct, Chronic obstructive pulmonar y disease, unspecified J44.9 [facility] [address] [place] [id number] [address] [place] [id number] Oct, [facility] [address] [facility] [id number] [address] [place] [id number] Oct, Tremor R25.1 [facility] [address] [facility] [id number] [address] [place] [id number] Oct, Bipolar I disorder with depr ession F31.9 ; Diabetes E11.9 ; PTSD (post-traumatic stress disorder) F43.10 and Panic disorder with agoraphobia F40.01 [facility] [address] [facility] [id number] [address] [place] [address] Oct, Mood disorder F39 [place] [address] [address] [facility] [id number] [address] [place] [address] September, [place] [address] [address] [facility] [id number] [address] [place] [address] September, Diabetes E11.9 ; Bipolar I d isorder with depression F31.9 ; PTSD (post-traumatic stress disorder) F43.10 and Panic disorder with agoraphobia F40.01 [place] [facility] [id number] [address] [place] [id number] September, Mood disorder F39 ; Schizoaf fective disorder, unspecified type F25.9 ; Arthritis M19.90 ; Tremor R25.1 ; Acute non-recurrent frontal sinusitis J01.10 and Blood in stool K92.1 [facility] [address] [facility] [id number] [address] [place] [id number] September, [facility] [address] [facility] [id number] [address] [place] [address] September, Chronic obstructive pulmonar y disease, unspecified J44.9 [facility] [address] [facility] [id number] [address] [place] [address] September, Diabetes E11.9 [facility] [address] [facility] [id number] [address] [place] [address] Aug, Other bipolar disorder F31.8 9 and Anxiety disorder, unspecified F41.9 [facility] [address] [id number] [address] [place] [id number] Aug, [facility] [address] [id number] [address] [place] [id number] 19 Aug, 2015 Diabetes E11.9 [facility] [address] [id number] [address] [place] [id number] 18 Aug, 2015 [facility] [address] [id number] [address] [place] [id number] 14 Aug, 2015 Diabetes E11.9 ; Fatigue R53 .83 and Dizziness R42 [facility] [address] [id number] [address] [place] [id number] 13 Aug, 2015 Other bipolar disorder F31.8 9 [facility] [address] [id number] [address] [place] [address] 07 Aug, 2015 Generalized anxiety disorder F41.1 [facility] [address] [id number] [address] [place] [id number] 07 Aug, 2015 Other bipolar disorder F31.8 9 and Anxiety disorder, unspecified F41.9 [facility] [address] [id number] [address] [place] [id number] 04 Aug, 2015 [facility] [address] [id number] [address] [place] [id number] Jul, [facility] [address] [id number] [address] [place] [id number] 24 Jul, 2015 [facility] [address] [id number] [address] [place] [address] Jul, Bronchitis J40 [facility] [address] [id number] [address] [place] [address] Jul, Anxiety disorder F41.9 [facility] [address] [id number] [address] [place] [address] Jul, Other bipolar disorder F31.8 9 and Anxiety disorder, unspecified F41.9 [facility] [address] [facility] [id number] [address] [place] [id number] 18 Jul, 2015 Other bipolar disorder F31.8 9 and Fibromyalgia M79.7 [facility] [address] [facility] [id number] [address] [place] [id number] Jul, [facility] [address] [facility] [id number] [address] [place] [id number] Jul, [facility] [address] [facility] [id number] [address] [place] [address] Jul, [facility] [address] [facility] [id number] [address] [place] [id number] Jul, Other bipolar disorder F31.8 9 and Anxiety disorder, unspecified F41.9 [facility] [address] [facility] [id number] [address] [place] [id number] Jun, GERD (gastroesophageal reflu x disease) K21.9 [facility] [address] [facility] [id number] [address] [place] [id number] Jun, [facility] [address] [place] [id number] [place] [address] May, [facility] [address] [place] [id number] [address] [place] [id number] May, Diabetes E11.9 ; Back pain M 54.9 ; GERD (gastroesophageal reflux disease) K21.9 ; Hypertension I10 and Peripheral neuropathy G62.9 [facility] [address] [facility] [id number] [address] [place] [address] Mar, [facility] [address] [place] [id number] [address] [place] [id number] Mar, [facility] [address] [place] [id number] [address] [place] [id number] 12 Mar, 2015 Acute sinusitis J01.90 and O titis media, left H66.92 [facility] [id number] [place] [id number] Feb, [facility] [address] [id number] [address] [place] [phone] Feb, [facility] [address] [facility] [id number] [address] [place] [id number] Feb, [facility] [address] [facility] [id number] [address] [place] [address] Feb, [facility] [address] [facility] [id number] [address] [place] [phone] Jan, [facility] [address] [facility] [id number] [address] [place] [id number] Jan, Diabetes 250.00 and Back higinio n 724.5 [facility] [address] [facility] [id number] [address] [place] [id number] Jan, [facility] [address] [facility] [id number] [address] [place] [address] Dec, Diabetes 250.00 ; Benign ess ential hypertension 401.1 and Allergic rhinitis 477.9 [facility] [address] [facility] [id number] [address] [place] [address] Dec, [facility] [address] [facility] [id number] [address] [place] [id number] Dec, [facility] [address] [place] [id number] [address] [place] [id number] Dec, Psychosis 298.9 [facility] [address] [facility] [id number] [address] [place] [id number] Dec, Medication side effect 995.2 0 and Generalized anxiety disorder 300.02 [facility] [address] [facility] [id number] [address] [place] [id number] Dec, Acquired cognitive dysfuncti on 294.9 [facility] [address] [facility] [id number] [address] [place] [address] Dec, [facility] [address] [id number] [address] [place] [address] Dec, Unspecified myalgia and myos itis 729.1 and Generalized anxiety disorder 300.02 [facility] [address] [id number] [address] [place] [id number] Nov, [facility] [address] [id number] [address] [place] [id number] Nov, [facility] [address] [id number] [address] [place] [address] Nov, [facility] [address] [id number] [address] [place] [address] Nov, Upper respiratory infection 465.9 and Chronic airway obstruction, not elsewhere classified 496 [facility] [address] [facility] [id number] [address] [place] [address] Nov, Hyponatremia 276.1 [facility] [address] [facility] [id number] [address] [place] [address] Oct, [facility] [address] [id number] [address] [place] [id number] Oct, [facility] [address] [facility] [id number] [address] [place] [id number] Oct, [facility] [address] [facility] [id number] [address] [place] [phone] Oct, [facility] [address] [facility] [id number] [address] [place] [id number] Oct, Hyponatremia 276.1 [facility] [address] [id number] [address] [place] [address] Oct, [facility] [address] [facility] [id number] [address] [place] [id number] Oct, [facility] [address] [facility] [id number] [address] [place] [id number] Oct, Generalized anxiety disorder 300.02 [facility] [address] [id number] [address] [place] [address] Oct, Generalized anxiety disorder 300.02 and Diabetes 250.00 [facility] [address] [id number] [address] [place] [address] 14 Aug, 2014 [facility] [address] [facility] [id number] [address] [place] [id number] Aug, [facility] [address] [id number] [address] [place] [id number] Jul, [facility] [address] [id number] [address] [place] [id number] Jul, [facility] [address] [id number] [address] [place] [id number] Jun, [facility] [address] [id number] [address] [place] [id number] Jun, [facility] [address] [id number] [address] [place] [id number] Jun, [facility] [address] [id number] [address] [place] [id number] Jun, [facility] [address] [id number] [address] [place] [id number] Jun, [facility] [address] [id number] [address] [place] [address] May, [facility] [address] [id number] [address] [place] [address] May, [facility] [address] [id number] [address] [place] [address] Apr, [facility] [address] [id number] [address] [place] [address] Apr, [facility] [address] [facility] [id number] [address] [place] [id number] Apr, [facility] [address] [id number] [address] [place] [address], [place] [address] 18 Apr, 2013 [facility] [address] [id number] [address] [place] [address], [place] [address] Apr, [facility] [address] [id number] [address] [place] [address], [place] [address] Apr, [facility] [address] [id number] [address] [place] [address], [place] [address] Apr, [facility] [address] [id number] [address] [place] [address], [place] [address] Apr, [facility] [address] [id number] [address] [place] [address], [place] [address] Feb, [facility] [address] [id number] [address] [place] [address], [place] [address] Feb, [facility] [address] [id number] [address] [place] [address], [place] [address] Jan, [facility] [address] [id number] [address] [place] [address], [place] [address] Jan, [facility] [address] [id number] [address] [place] [address], [place] [address] Dec, [facility] [address] [id number] [address] [place] [address], [place] [address] Dec, [facility] [address] [id number] [address] [place] [address], [place] [address] Dec, [facility] [address] [id number] [address] [place] [address], [place] [address] Nov, [facility] [address] [id number] [address] [place] [address], [place] [address] Nov, [facility] [address] [id number] [address] [place] [address], [place] [address] Nov, [facility] [address] [id number] [address] [place] [address], [place] [address] Oct, [facility] [address] [id number] [address] [place] [address], [place] [address] Oct, [facility] [address] [id number] [address] [place] [address], [place] [address] Oct, [facility] [address] [id number] [address] [place] [address], [place] [address] September, [facility] [address] [id number] [address] [place] [address], [place] [address] September, [facility] [address] [id number] [address] [place] [address], [place] [address] September, [facility] [address] [id number] [address] [place] [address], [place] [address] Aug, [facility] [address] [id number] [address] [place] [address], [place] [address] Aug, [facility] [address] [id number] [address] [place] [address], [place] [address] Aug, [facility] [address] [id number] [address] [place] [address], [place] [address] 16 Aug, 2011 [facility] [address] [id number] [address] [place] [address], [place] [address] Jul, [facility] [address] [id number] [address] [place] [address], [place] [address] Jun, [facility] [address] [id number] [address] [place] [address], [place] [address] 14 Jun, 2011 [facility] [address] [id number] [address] [place] [address], [place] [address] 13 Jun, 2011 [facility] [address] [id number] [address] [place] [address], [place] [address] 07 Jun, 2011 [facility] [address] [id number] [address] [place] [address], [place] [address] 03 Jun, 2011 [facility] [address] [id number] [address] [place] [address], [place] [address] 13 May, 2011 [facility] [address] [id number] [address] [place] [address], [place] [address] May, [facility] [address] [id number] [address] [place] [address], [place] [address] May, [facility] [address] [id number] [address] [place] [address], [place] [address] May, [facility] [address] [id number] [address] [place] [address], [place] [address] Apr, [facility] [address] [id number] [address] [place] [address], [place] [address] Apr, [facility] [address] [id number] [address] [place] [address], [place] [address] Apr, [facility] [address] [id number] [address] [place] [address], [place] [address] Mar, [facility] [address] [id number] [address] [place] [address], [place] [address] Mar, [facility] [address] [id number] [address] [place] [address], [place] [address] Mar, [facility] [address] [id number] [address] [place] [address], [place] [address] Feb, [facility] [address] [id number] [address] [place] [address], [place] [address] Feb, [facility] [address] [id number] [address] [place] [address], [place] [address] Feb, [facility] [address] [id number] [address] [place] [address], [place] [address] Nov, [facility] [address] [id number] [address] [place] [address], [place] [address] September, [facility] [address] [id number] [address] [place] [address], [place] [address] Aug, [facility] [address] [id number] [address] [place] [id number] Jul, [facility] [address] [id number] [address] [place] [id number] May, [facility] [address] [id number] [address] [place] [id number] Apr, [facility] [address] [id number] [address] [place] [id number] Apr, [facility] [address] [id number] [address] [place] [id number] Apr, [facility] [address] [id number] [address] [place] [id number] Apr, [facility] [address] [facility] [id number] [address] [place] [id number] Apr, IMMUNIZATIONS No Known Immunizations SOCIAL HISTORY Never Assessed REASON FOR VISIT Pain management (chronic)-Serafin BASURTO PLAN OF CARE Activity Details Follow Up 4 Weeks Reason:dizziness VITAL SIGNS Height 66 in 2017-09-30 Weight 102.8 lbs 2017-09-30 Temperature 98.1 degrees Fahrenheit 2017-09-30 Heart Rate 78 bpm 2017-09-30 Respiratory Rate 18 2017-09-30 BMI 16.59 kg/m2 2017-09-30 Blood pressure systolic 130 mmHg 2017-09-30 Blood pressure diastolic 76 mmHg 2017-09-30 MEDICATIONS Medication Instructions Dosage Frequency Start Date End Date Duration S tatus Atorvastatin Calcium 10 MG Orally Once a day 1 tablet 24h Active Lorazepam 2 MG Orally in the AM and noon and 4pm 1 tablet Jul, 30 days Active [place] 7.5-325 MG Orally 3 times a day 1 tablet as needed 8h September, 28 days Active Sudafed 30 MG Orally every 6 hrs 1 tablet as needed 6h September, Active Ventolin HFA 108 (90 Base) MCG/ACT Inhalation every 4 hrs 2 puffs a s needed 4h Dec, Active Mucinex 600 MG Orally every 12 hrs 1 tablet as needed 12h Active Adderall XR 20 mg Orally Once a day for depression 1 capsule in the morning September, 28 days Active Gabapentin 800 MG Orally Three times a day 1 tablet 8h Jul, Active Diclofenac Sodium 1 % Transdermal Four times a day 2-4- grams to affected areas 6h Jun, 30 days Active Benztropine Mesylate 0.5 MG Orally 3 times a day-Q AM, 4pm and bedtime for restlessness 1 tablet Mar, Active Metformin HCl 1000 MG Orally Twice a day 1 tablet with meals 12h Aug, 30 day(s) Active Nexium 40 mg 1 capsule 24h Active Amlodipine Besylate 5 MG Orally Once a day 1 tablet 24h Active Ibuprofen 600 MG TAKE ONE TABLET BY MOUTH THREE TIMES DAILY 33 Active Dicyclomine HCl 20 mg Orally Four times a day 1 tablet 6h 18 2017 30 day(s) Active Xopenex 1.25 MG/3ML Inhalation 4 times a day prn 3 ml Dec, 30 days Active Aspir-81 81 MG Orally Once a day 1 tablet 24h Active Black Cohosh 20 MG Orally Twice a day 1 tablet in the morning 12h Aug, September, 30 day(s) Active Baclofen 20 MG Orally Three times a day 1 tablet with food or milk 8h 30 Active MiraLax - Orally 3 times a day until you have a BM then Reduce to once daily. 17 grams mixed with 8 oz of fluid 30 days Active Lisinopril 30 MG Orally Once a day 1 tablet 24h Active BusPIRone HCl 15 mg Orally 3 times a day for anxiety 1 tablet Jan, Active Metoprolol Tartrate 50 mg Orally Twice a day TAKE ONE TABLE T BY MOUTH TWICE DAILY WITH FOOD 12h Active Flonase 50 mcg/act 1 spray in each nostril 12h Apr, Active Singulair 10 mg Orally Once a day 1 tablet in the evening 24h Oct, 30 day(s) Active Nebulizer 1 as directed Jul, Act minoo Calcium 600 + D 600-200 MG-UNIT Active Propranolol HCl 20 mg Orally Twice a day 1 tablet 12h September, 30 day(s) Active Linzess 290 MCG Orally Once a day 1 capsule 24h Jul, 30 day(s) Not-Taking Trazodone HCl 100 mg Orally for sleep 1 tablet at bedtime Jan Active Ondansetron 4 MG Orally every 8 hrs PRN 1 tablet on the t ongue and allow to dissolve Apr, 30 days Active Rzmhcxpiar-USPI-Asdoccxx 50-325-40 MG Orally 3 times a day 1 cap yg as needed 8h Jun, Active Insulin Pen Needle 32G X 6 MM as directed 24h Oct, Active Lamictal 100 mg Orally 2 times a day for depression 1 tablet September, Active Cetirizine HCl 10 mg Orally Once a day 1 tablet 24h Apr, 30 day(s) Active Clonidine HCl 0.1 MG 1 tablet 8h Ac tive Levemir FlexTouch 100 UNIT/ML Subcutaneous Once a day 7 units 24h September, 30 days Active Loxapine Succinate 10 mg Orally twice a day for mood 1 capsule Active Multivitamin Adult - Act minoo Glucosamine 1000 MG Orally Once a day 2 capsules 24h Active Gaviscon 80-14.2 MG Orally 4 times a day 4 tablet 6h Active RESULTS No Results PROCEDURES Procedure Date Ordered Result Body Site [facility]IT ESTABLISHED PATIENT September 30, 2017 [facility] 30, 2017 INSTRUCTIONS MEDICATIONS ADMINISTERED No Known Medications [...]
--- OUTSIDE RECORDS SUMMARY | 2019-07-17 11:06 | XMS REPORT ---
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 Name Role Phone WHIT GANDHI Unavailable PROBLEMS Type Condition ICD9-CM Code VJA12-IR Code Onset Dates Condition S tatus SNOMED Code Problem Back pain M54.9 Active 626454316 Problem Diabetes E11.9 Active 88043003 Problem GERD (gastroesophageal reflux disease) K21.9 Active 463950804 Problem Hypertension I10 Active 8629766 3 Problem Anxiety disorder, unspecified F41.9 Active 153162706 Problem Other bipolar disorder F31.89 Active 01581625 Problem Fibromyalgia M79.7 Active 8560422 7 Problem Panic disorder with agoraphobia F40.01 Active 63695539 Problem Panlobular emphysema J43.1 Active 4056305 Problem Chronic obstructive pulmonary disease, unspecified J44.9 Active 58360862 Problem Akathisia G25.71 Active 232145676 Problem Lumbago with sciatica, left side M54.42 Active 196661697 Problem Migraine without aura and without status migrain osus, not intractable G43.009 Active 989189396 Problem Fibrocystic disease of right breast N60.11 Active 38909760 Problem Fibrocystic disease of left breast N60.12 Active 35557014 Problem Slow transit constipation K59.01 Acti ve 46073396 Problem Essential tremor G25.0 Active 609 939576 Problem Bipolar 1 disorder, depressed, moderate F31.32 Active 63732365 Problem Other chronic pain G89.29 Active 8 7817613 Problem Lumbago with sciatica, right side M54.41 Active 111383249 Problem Irritable bowel syndrome with constipation K58.1 Active 421866529 Problem Arthritis M19.90 Active 2497092 Problem Schizoaffective disorder, bipolar type F25.0 Active 11621975 Problem Irritable bowel syndrome with both constipation and diarrh ea K58.2 Active 66442971 Problem Attention deficit hyperactiv ity disorder (ADHD), predominantly inattentive type F90.0 Active 46809853 Problem Bipolar I disorder with depression F31.9 Active 01360706 Problem Chronic post-traumatic stress disorder (PTSD) F43. 12 Active 013833004 Problem Bipolar affective disorder, remission status unspecified F31.9 Active 83736896 Problem Mild persistent asthma without complication J45.30 Active 524267401 Problem Moderate persistent asthma without complication J4 5.40 Active 813201787 Problem Acute non-recurrent maxillary sinusitis J01.00 Active 04698540 Problem Bipolar 1 disorder, depressed, partial remission F 31.75 Active 38182438 ALLERGIES Substance Reaction Event Type Date Status Penicillin V Potassium Unknown Drug Allergy September, Activ e Effexor anaphylaxis Drug Allergy September, Active Darvocet-N 50 Unknown Drug Allergy September, Active Cefdinir Swelling Drug Allergy September, Active Benadryl vomiting/swelling Drug Allergy September, Active ENCOUNTERS Encounter Location Date Diagnosis [place] [address] [place] [id number] [place] [id number] Mar, [place] [address] [place] [id number] [place] [id number] Dec, [place] [address] [place] [id number] [place] [id number] Dec, [place] [address] [place] [id number] [address] [place] [id number] Nov, Bipolar 1 disorder, depresse d, partial remission F31.75 and Panic disorder with agoraphobia F40.01 [place] [address] [place] [id number] [place] [id number] Nov, Panlobular emphysema J43.1 [facility] [address] [id number] [address] [place] [id number] Nov, Cerebrovascular accident (CV A) due to occlusion of right cerebellar artery I63.541 and Acute non-recurrent maxillary sinusitis J01.00 [facility] [address] [id number] [address] [place] [id number] Nov, Panlobular emphysema J43.1 [facility] [address] [id number] [address] [place] [id number] Nov, [facility] [address] [id number] [address] [place] [id number] Nov, [facility] [address] [id number] [address] [place] [id number] Nov, [facility] [address] [id number] [address] [place] [id number] Nov, [facility] [address] [id number] [address] [place] [id number] Nov, [facility] [address] [id number] [address] [place] [id number] Nov, [facility] [address] [id number] [address] [place] [id number] Nov, [facility] [address] [id number] [address] [place] [id number] Nov, Mild persistent asthma witho ut complication J45.30 and Irritable bowel syndrome with both constipation and diarrhea K58.2 [facility] [address] [id number] [address] [place] [id number] Nov, [facility] [address] [id number] [address] [place] [id number] Oct, [facility] [address] [id number] [address] [place] [id number] Oct, [facility] [address] [id number] [address] [place] [id number] Oct, Type 2 diabetes mellitus wit h diabetic neuropathy, unspecified whether cooker sulfate insulin use E11.40 ; Diabetes E11.9 ; Slow transit constipation K59.01 ; Edema of both legs R60.0 and Dysfunction of right eustachian tube H69.81 [facility] [address] [id number] [address] [place] [id number] Oct, Frequent headaches R51 [facility] [address] [id number] [address] [place] [id number] Oct, [facility] [address] [id number] [address] [place] [id number] Oct, [facility] [address] [id number] [address] [place] [id number] Oct, [facility] [address] [id number] [address] [place] [id number] Oct, [facility] [address] [id number] [address] [place] [id number] Oct, [facility] [address] [id number] [address] [place] [phone] Oct, [facility] [address] [id number] [address] [place] [id number] Oct, [facility] [address] [id number] [address] [place] [id number] Oct, [facility] [address] [id number] [address] [place] [id number] September, Frequent headaches R51 [facility] [address] [id number] [address] [place] [id number] September, Bilateral otitis media with effusion H65.93 ; Dizziness R42 and Essential tremor G25.0 [facility] [address] [id number] [address] [place] [id number] September, Chronic obstructive pulmonar y disease, unspecified COPD type J44.9 [facility] [address] [id number] [address] [place] [id number] September, Chronic obstructive pulmonar y disease, unspecified COPD type J44.9 [facility] [address] [id number] [address] [place] [id number] September, Migraine without aura and wi thout status migrainosus, not intractable G43.009 [facility] [address] [id number] [address] [place] [id number] September, [facility] [address] [id number] [address] [place] [id number] September, [facility] [address] [id number] [address] [place] [id number] September, [facility] [address] [id number] [address] [place] [id number] September, Frequent headaches R51 [facility] [address] [id number] [address] [place] [id number] Aug, [facility] [address] [id number] [address] [place] [id number] Aug, Breast mass, right N63.10 [facility] [address] [id number] [address] [place] [id number] Aug, Breast lump N63.0 [facility] [address] [id number] [address] [place] [id number] Aug, [facility] [address] [id number] [address] [place] [id number] Aug, Bipolar affective disorder, remission status unspecified F31.9 and Diabetes E11.9 [facility] [address] [id number] [address] [place] [id number] Aug, Diabetes E11.9 ; Schizoaffec tive disorder, bipolar type F25.0 ; Pharyngitis due to other organism J02.8 ; Panlobular emphysema J43.1 and Irritable bowel syndrome with both constipation and diarrhea K58.2 [facility] [address] [id number] [address] [place] [id number] Aug, Abnormal mammogram R92.8 [facility] [address] [id number] [address] [place] [id number] Aug, [facility] [address] [id number] [address] [place] [id number] Aug, Bipolar 1 disorder, depresse d, moderate F31.32 ; Panic disorder with agoraphobia F40.01 and Chronic post-traumatic stress disorder (PTSD) F43.12 [facility] [address] [id number] [address] [place] [id number] Aug, [facility] [address] [place] [id number] [place] [phone] Aug, [facility] [address] [id number] [address] [place] [id number] Aug, [facility] [address] [place] [id number] [place] [phone] Jul, [facility] [address] [place] [id number] [place] [address] Jul, Mild persistent asthma witho ut complication J45.30 [facility] [address] [place] [id number] [address] [place] [id number] Jul, Mild persistent asthma witho ut complication J45.30 [facility] [address] [id number] Jul, Bipolar affective disorder, remission status unspecified F31.9 ; Diabetes E11.9 and Irritable bowel syndrome with constipation K58.1 [facility] [id number] [place] [id number] Jul, [facility] [address] [place] [id number] [address] [place] [id number] Jul, [facility] [address] [id number] [address] [place] [id number] Jul, Frequent headaches R51 [facility] [address] [id number] [address] [place] [id number] 07 Jul, 2017 [facility] [address] [place] [id number] [address] [place] [id number] Jul, [facility] [address] [place] [id number] [address] [place] [id number] Jul, [place] [address] [address] Jul, Frequent headaches R51 ; Fib rocystic disease of left breast N60.12 ; Fibrocystic disease of right breast N60.11 and Diabetes E11.9 [place] [address] [id number] Jul, [facility] [address] [id number] [place] [id number] Jul, [place] [address] [id number] 21 Jun, 2017 Exudative tonsillitis J03.90 [place] [address] [address] 20 Jun, 2017 [place] [address] [address] 19 Jun, 2017 [place] [address] [id number] 15 Jun, 2017 Mild persistent asthma witho ut complication J45.30 ; Chronic obstructive pulmonary disease, unspecified COPD type J44.9 and Exudative tonsillitis J03.90 [place] [address] [place] [id number] [place] [id number] 13 Jun, 2017 Encounter for immunization Z 23 [place] [address] [facility] [id number] [address] [place] [id number] Jun, [place] [address] [id number] Jun, [place] [address] [place] [id number] [address] [place] [id number] 09 Jun, 2017 [facility] [address] [id number] [place] [id number] 06 Jun, 2017 Tonsillitis J03.90 [facility] [address] [id number] 05 Jun, 2017 [facility] [address] [address] 03 Jun, 2017 Acute non-recurrent maxillar y sinusitis J01.00 [facility] [address] [id number] 02 Jun, 2017 [facility] [address] [address] May, [facility] [address] [address] May, [facility] [address] [address] May, GERD (gastroesophageal reflu x disease) K21.9 [place] [address] [id number] May, Migraine without aura and wi thout status migrainosus, not intractable G43.009 [facility] [address] [id number] May, [facility] [address] [address] May, [facility] [address] [address] May, Panlobular emphysema J43.1 a nd Acute non-recurrent maxillary sinusitis J01.00 [facility] [address] [address] May, Bipolar 1 disorder, depresse d, moderate F31.32 ; Panic disorder with agoraphobia F40.01 and Akathisia G25.71 [facility] [address] [address] Apr, [place] [address] [id number] [address] [place] [id number] 14 Apr, 2017 [facility] [address] [id number] [address] [place] [id number] Apr, Acute non-recurrent maxillar y sinusitis J01.00 [facility] [address] [id number] [address] [place] [id number] 07 Apr, 2017 Panlobular emphysema J43.1 [facility] [address] [id number] [address] [place] [id number] 04 Apr, 2017 [facility] [address] [id number] [address] [place] [id number] 04 Apr, 2017 Exudative tonsillitis J03.90 and Sore throat J02.9 [facility] [address] [id number] [address] [place] [id number] 17 Mar, 2017 [facility] [address] [id number] [address] [place] [id number] 15 Mar, 2017 Acute non-recurrent maxillar y sinusitis J01.00 [facility] [address] [id number] [address] [place] [id number] 13 Mar, 2017 [facility] [address] [id number] [address] [place] [id number] 09 Mar, 2017 Panlobular emphysema J43.1 a nd Diabetes E11.9 [facility] [address] [id number] [address] [place] [id number] Mar, [facility] [address] [id number] [address] [place] [id number] Feb, Wheezing R06.2 and Acute rec urrent pansinusitis J01.41 [facility] [address] [id number] [address] [place] [id number] Feb, [facility] [address] [id number] [address] [place] [id number] Feb, Acute non-recurrent maxillar y sinusitis J01.00 [facility] [address] [id number] [address] [place] [id number] 16 Feb, 2017 Chronic obstructive pulmonar y disease, unspecified J44.9 [facility] [address] [id number] [address] [place] [id number] 02 Feb, 2017 Hypoxemia R09.02 and Chronic obstructive pulmonary disease, unspecified J44.9 [facility] [address] [id number] [address] [place] [id number] 28 Jan, 2017 Bipolar 1 disorder, depresse d, moderate F31.32 ; Panic disorder with agoraphobia F40.01 ; Chronic post-traumatic stress disorder (PTSD) F43.12 ; Diabetes E11.9 and Moderate persistent asthma without complication J45.40 [facility] [address] [id number] [address] [place] [id number] 22 Jan, 2017 [facility] [address] [id number] [address] [place] [id number] 19 Jan, 2017 Acute non-recurrent maxillar y sinusitis J01.00 [facility] [address] [id number] [address] [place] [id number] 18 Jan, 2017 [facility] [address] [id number] [address] [place] [id number] 18 Jan, 2017 [facility] [address] [id number] [address] [place] [id number] Jan, [facility]40 and Hypoxemia R09.02 [facility] [address] [id number] [address] [place] [id number] 11 Jan, 2017 Moderate [facility] J[facility].40 and Hypoxemia R09.02 [facility] [address] [id number] [address] [place] [id number] Jan, [facility] [address] [id number] [address] [place] [id number] Dec, Acute non-recurrent maxillar y sinusitis J01.00 [facility] [address] [id number] [address] [place] [id number] Dec, Chronic obstructive pulmonar y disease, unspecified J44.9 [facility] [address] [id number] [address] [place] [id number] Dec, [facility] [address] [id number] [address] [place] [id number] Dec, Mild persistent asthma witho ut complication J45.30 and Other chronic pain G89.29 [facility] [address] [id number] [address] [place] [id number] Nov, [facility] [address] [id number] [address] [place] [id number] Nov, Acute non-recurrent maxillar y sinusitis J01.00 [facility] [address] [id number] [address] [place] [id number] Nov, [facility] [address] [id number] [address] [place] [id number] Nov, [facility] [address] [id number] [address] [place] [id number] Oct, [facility] [address] [id number] [address] [place] [id number] Oct, Bipolar 1 disorder, depresse d, partial remission F31.75 ; Panic disorder with agoraphobia F40.01 and Chronic post-traumatic stress disorder (PTSD) F43.12 [facility] [address] [id number] [address] [place] [id number] Oct, Acute non-recurrent maxillar y sinusitis J01.00 [facility] [address] [id number] [address] [place] [id number] Oct, [facility] [address] [id number] [address] [place] [id number] Oct, Diabetes E11.9 [facility] [address] [id number] [address] [place] [id number] September, Diabetes E11.9 [facility] [address] [id number] [address] [place] [id number] September, Diabetes E11.9 and Sinus tac hycardia R00.0 [facility] [address] [id number] [address] [place] [id number] September, [facility] [address] [id number] [address] [place] [id number] September, [facility] [address] [id number] [address] [place] [id number] Aug, Diabetes E11.9 and Lumbago w ith sciatica, right side M54.41 [facility] [address] [id number] [address] [place] [id number] Aug, [facility] [address] [id number] [address] [place] [id number] Jul, Bipolar 1 disorder, depresse d, moderate F31.32 ; Panic disorder with agoraphobia F40.01 and Chronic post-traumatic stress disorder (PTSD) F43.12 [facility] [address] [id number] [address] [place] [id number] Jul, Sore throat J02.9 [facility] [address] [id number] [address] [place] [id number] Jul, [facility] [address] [id number] [address] [place] [id number] Jul, [facility] [address] [id number] [address] [place] [id number] Jul, [facility] [address] [id number] [address] [place] [id number] Jul, [facility] [address] [id number] [address] [place] [id number] Jul, Sore throat J02.9 and Pharyn gitis, unspecified etiology J02.9 [facility] [address] [id number] [address] [place] [id number] Jun, [facility] [address] [id number] [address] [place] [id number] Jun, Diabetes E11.9 [facility] [address] [id number] [address] [place] [id number] Jun, [facility] [address] [id number] [address] [place] [id number] Jun, [facility] [address] [id number] [address] [place] [id number] Jun, [facility] [address] [id number] [address] [place] [id number] Jun, [facility] [address] [id number] [address] [place] [id number] Jun, [facility] [address] [id number] [address] [place] [id number] Jun, [facility] [address] [id number] [address] [place] [id number] Jun, [facility] [address] [id number] [address] [place] [id number] Jun, [facility] [address] [id number] [address] [place] [id number] May, Diabetes E11.9 ; Other chron ic pain G89.29 ; Acute recurrent maxillary sinusitis J01.01 ; Bipolar I disorder with depression F31.9 and Anxiety disorder, unspecified F41.9 [facility] [address] [id number] [address] [place] [id number] May, [facility] [address] [id number] [address] [place] [id number] May, Diabetes E11.9 ; Bipolar I d isorder with depression F31.9 ; Anxiety disorder, unspecified F41.9 ; Other chronic pain G89.29 and Acute recurrent maxillary sinusitis J01.01 [facility] [address] [id number] [address] [place] [id number] May, [facility] [facility] [address] [id number] [address] [place] [id number] May, Attention deficit hyperactiv ity disorder (ADHD), predominantly inattentive type F90.0 [place] [address] [id number] [address] [place] [phone] May, [facility] [facility] [address] [id number] [place], [place] [id number] Apr, Attention deficit hyperactiv ity disorder (ADHD), predominantly inattentive type F90.0 and Non-seasonal allergic rhinitis due to other allergic trigger J30.89 [place] [address] [place] [id number] [address] [place] [id number] 15 Apr, 2016 Bipolar 1 disorder, depresse d, moderate F31.32 ; Panic disorder with agoraphobia F40.01 and Chronic post-traumatic stress disorder (PTSD) F43.12 [place] [address] [place] [id number] [address] [place] [id number] 06 Apr, 2016 Dental examination Z01.20 [place] [address] [facility] [id number] [address] [place] [id number] Mar, [place] [address] [facility] [id number] [address] [place] [id number] Mar, [place] [address] [facility] [id number] [address] [place] [id number] 17 Mar, 2016 Bipolar I disorder with depr ession F31.9 and Anxiety disorder, unspecified F41.9 [place] [address] [facility] [id number] [address] [place] [id number] 08 Mar, 2016 Panic disorder with agorapho syd F40.01 ; Bipolar 1 disorder, depressed, moderate F31.32 and Chronic post-traumatic stress disorder (PTSD) F43.12 [place] [address] [id number] [address] [place] [id number] Mar, [place] [address] [facility] [id number] [address] [place] [id number] Mar, Dental caries K02.9 [place] [address] [facility] [id number] [address] [place] [id number] Feb, Lumbago with sciatica, left side M54.42 ; Lumbago with sciatica, right side M54.41 and Other chronic pain G89.29 [place] [address] [facility] [id number] [address] [place] [id number] 17 Feb, 2016 [place] [address] [facility] [id number] [address] [place] [id number] Feb, [place] [address] [place] [id number] [place] [address] Feb, Bipolar I disorder with depr ession F31.9 ; PTSD (post-traumatic stress disorder) F43.10 and Mood disorder F39 [place] [address] [facility] [id number] [address] [place] [id number] Feb, [place] [address] [facility] [id number] [address] [place] [address] Feb, Dental examination Z01.20 [place] [address] [id number] [address] [place] [id number] 07 Feb, 2016 [facility] [address] [facility] [id number] [address] [place] [id number] 03 Feb, 2016 Acute bronchitis, unspecifie d organism J20.9 [place] [address] [facility] [id number] [address] [place] [id number] 26 Jan, 2016 Mood disorder F39 ; Migraine without aura and without status migrainosus, not intractable G43.009 ; Irritable bowel syndrome, unspecified type K58.9 ; Diabetes E11.9 and Encounter for immunization Z23 [facility] [address] [facility] [id number] [address] [place] [id number] Jan, [facility] [address] [facility] [id number] [address] [place] [id number] Jan, [facility] [address] [facility] [id number] [address] [place] [id number] Jan, [facility] [address] [facility] [id number] [address] [place] [id number] Jan, [facility] [address] [facility] [id number] [address] [place] [phone] Jan, [facility] [address] [facility] [id number] [address] [place] [id number] Dec, Bipolar I disorder with depr ession F31.9 ; PTSD (post-traumatic stress disorder) F43.10 and Panic disorder with agoraphobia F40.01 [facility] [address] [place] [id number] [address] [place] [id number] Dec, Chronic obstructive pulmonar y disease, unspecified COPD type J44.9 ; Tremor R25.1 and Anxiety F41.9 [facility] [address] [place] [id number] [address] [place] [phone] Dec, [facility] [address] [place] [id number] [address] [place] [id number] Nov, Tremors of nervous system R2 5.1 and Cramping of feet R25.2 [facility] [address] [facility] [id number] [address] [place] [phone] Nov, [facility] [address] [facility] [id number] [address] [place] [id number] Nov, [facility] [address] [facility] [id number] [address] [place] [id number] Oct, Chronic obstructive pulmonar y disease, unspecified J44.9 [facility] [address] [place] [id number] [address] [place] [id number] Oct, [facility] [address] [facility] [id number] [address] [place] [id number] Oct, Tremor R25.1 [facility] [address] [facility] [id number] [address] [place] [id number] Oct, Bipolar I disorder with depr ession F31.9 ; Diabetes E11.9 ; PTSD (post-traumatic stress disorder) F43.10 and Panic disorder with agoraphobia F40.01 [facility] [address] [facility] [id number] [address] [place] [id number] Oct, Mood disorder F39 [place] [address] [facility] [id number] [address] [place] [id number] September, [place] [address] [facility] [id number] [address] [place] [id number] September, Diabetes E11.9 ; Bipolar I d isorder with depression F31.9 ; PTSD (post-traumatic stress disorder) F43.10 and Panic disorder with agoraphobia F40.01 [place] [address] [facility] [id number] [address] [place] [phone] September, Mood disorder F39 ; Schizoaf fective disorder, unspecified type F25.9 ; Arthritis M19.90 ; Tremor R25.1 ; Acute non-recurrent frontal sinusitis J01.10 and Blood in stool K92.1 [facility] [address] [facility] [id number] [address] [place] [id number] September, [facility] [address] [facility] [id number] [address] [place] [id number] September, Chronic obstructive pulmonar y disease, unspecified J44.9 [facility] [address] [facility] [id number] [address] [place] [id number] September, Diabetes E11.9 [facility] [address] [facility] [id number] [address] [place] [id number] Aug, Other bipolar disorder F31.8 9 and Anxiety disorder, unspecified F41.9 [facility] [address] [id number] [address] [place] [phone] Aug, [facility] [address] [id number] [address] [place] [id number] 19 Aug, 2015 Diabetes E11.9 [facility] [address] [id number] [address] [place] [id number] 18 Aug, 2015 [facility] [address] [id number] [address] [place] [id number] 14 Aug, 2015 Diabetes E11.9 ; Fatigue R53 .83 and Dizziness R42 [facility] [address] [id number] [address] [place] [id number] 13 Aug, 2015 Other bipolar disorder F31.8 9 [facility] [address] [id number] [address] [place] [id number] 07 Aug, 2015 Generalized anxiety disorder F41.1 [facility] [address] [id number] [address] [place] [id number] 07 Aug, 2015 Other bipolar disorder F31.8 9 and Anxiety disorder, unspecified F41.9 [facility] [address] [id number] [address] [place] [id number] 04 Aug, 2015 [facility] [address] [id number] [address] [place] [id number] Jul, [facility] [address] [id number] [address] [place] [id number] 24 Jul, 2015 [facility] [address] [id number] [address] [place] [id number] Jul, Bronchitis J40 [facility] [address] [id number] [address] [place] [id number] Jul, Anxiety disorder F41.9 [facility] [address] [id number] [address] [place] [id number] Jul, Other bipolar disorder F31.8 9 and Anxiety disorder, unspecified F41.9 [facility] [address] [facility] [id number] [address] [place] [id number] 18 Jul, 2015 Other bipolar disorder F31.8 9 and Fibromyalgia M79.7 [facility] [address] [facility] [id number] [address] [place] [id number] Jul, [facility] [address] [facility] [id number] [address] [place] [id number] Jul, [facility] [address] [facility] [id number] [address] [place] [id number] Jul, [facility] [address] [facility] [id number] [address] [place] [id number] Jul, Other bipolar disorder F31.8 9 and Anxiety disorder, unspecified F41.9 [facility] [address] [facility] [id number] [address] [place] [id number] Jun, GERD (gastroesophageal reflu x disease) K21.9 [facility] [address] [facility] [id number] [address] [place] [id number] Jun, [facility] [address] [place] [id number] [place] [address] May, [facility] [address] [place] [id number] [address] [place] [id number] May, Diabetes E11.9 ; Back pain M 54.9 ; GERD (gastroesophageal reflux disease) K21.9 ; Hypertension I10 and Peripheral neuropathy G62.9 [facility] [address] [facility] [id number] [address] [place] [id number] Mar, [facility] [address] [place] [id number] [address] [place] [id number] Mar, [facility] [address] [place] [id number] [address] [place] [id number] 12 Mar, 2015 Acute sinusitis J01.90 and O titis media, left H66.92 [facility] [id number] [place] [id number] Feb, [facility] [address] [id number] [address] [place] [id number] Feb, [facility] [address] [facility] [id number] [address] [place] [id number] Feb, [facility] [address] [facility] [id number] [address] [place] [id number] Feb, [facility] [address] [facility] [id number] [address] [place] [id number] Jan, [facility] [address] [facility] [id number] [address] [place] [id number] Jan, Diabetes 250.00 and Back higinio n 724.5 [facility] [address] [facility] [id number] [address] [place] [id number] Jan, [facility] [address] [facility] [id number] [address] [place] [id number] Dec, Diabetes 250.00 ; Benign ess ential hypertension 401.1 and Allergic rhinitis 477.9 [facility] [address] [facility] [id number] [address] [place] [id number] Dec, [facility] [address] [facility] [id number] [address] [place] [id number] Dec, [facility] [address] [place] [id number] [address] [place] [id number] Dec, Psychosis 298.9 [facility] [address] [facility] [id number] [address] [place] [id number] Dec, Medication side effect 995.2 0 and Generalized anxiety disorder 300.02 [facility] [address] [facility] [id number] [address] [place] [id number] Dec, Acquired cognitive dysfuncti on 294.9 [facility] [address] [facility] [id number] [address] [place] [id number] Dec, [facility] [address] [id number] [address] [place] [id number] Dec, Unspecified myalgia and myos itis 729.1 and Generalized anxiety disorder 300.02 [facility] [address] [id number] [address] [place] [id number] Nov, [facility] [address] [id number] [address] [place] [id number] Nov, [facility] [address] [id number] [address] [place] [id number] Nov, [facility] [address] [id number] [address] [place] [id number] Nov, Upper respiratory infection 465.9 and Chronic airway obstruction, not elsewhere classified 496 [facility] [address] [facility] [id number] [address] [place] [id number] Nov, Hyponatremia 276.1 [facility] [address] [facility] [id number] [address] [place] [phone] Oct, [facility] [address] [id number] [address] [place] [id number] Oct, [facility] [address] [facility] [id number] [address] [place] [id number] Oct, [facility] [address] [facility] [id number] [address] [place] [id number] Oct, [facility] [address] [facility] [id number] [address] [place] [id number] Oct, Hyponatremia 276.1 [facility] [address] [id number] [address] [place] [id number] Oct, [facility] [address] [facility] [id number] [address] [place] [id number] Oct, [facility] [address] [facility] [id number] [address] [place] [id number] Oct, Generalized anxiety disorder 300.02 [facility] [address] [id number] [address] [place] [id number] Oct, Generalized anxiety disorder 300.02 and Diabetes 250.00 [facility] [address] [id number] [address] [place] [id number] 14 Aug, 2014 [facility] [address] [facility] [id number] [address] [place] [id number] Aug, [facility] [address] [id number] [address] [place] [id number] Jul, [facility] [address] [id number] [address] [place] [id number] Jul, [facility] [address] [id number] [address] [place] [id number] Jun, [facility] [address] [id number] [address] [place] [id number] Jun, [facility] [address] [id number] [address] [place] [id number] Jun, [facility] [address] [id number] [address] [place] [id number] Jun, [facility] [address] [id number] [address] [place] [id number] Jun, [facility] [address] [id number] [address] [place] [id number] May, [facility] [address] [id number] [address] [place] [id number] May, [facility] [address] [id number] [address] [place] [id number] Apr, [facility] [address] [id number] [address] [place] [id number] Apr, [facility] [address] [facility] [id number] [address] [place] [id number] Apr, [facility] [address] [id number] [address] [place] [address], [place] [address] 18 Apr, 2013 [facility] [address] [id number] [address] [place] [address], [place] [address] Apr, [facility] [address] [id number] [address] [place] [address], [place] [address] Apr, [facility] [address] [id number] [address] [place] [address], [place] [address] Apr, [facility] [address] [id number] [address] [place] [address], [place] [address] Apr, [facility] [address] [id number] [address] [place] [address], [place] [address] Feb, [facility] [address] [id number] [address] [place] [address], [place] [address] Feb, [facility] [address] [id number] [address] [place] [address], [place] [address] Jan, [facility] [address] [id number] [address] [place] [address], [place] [address] Jan, [facility] [address] [id number] [address] [place] [address], [place] [address] Dec, [facility] [address] [id number] [address] [place] [address], [place] [address] Dec, [facility] [address] [id number] [address] [place] [address], [place] [address] Dec, [facility] [address] [id number] [address] [place] [address], [place] [address] Nov, [facility] [address] [id number] [address] [place] [address], [place] [address] Nov, [facility] [address] [id number] [address] [place] [address], [place] [address] Nov, [facility] [address] [id number] [address] [place] [address], [place] [address] Oct, [facility] [address] [id number] [address] [place] [address], [place] [address] Oct, [facility] [address] [id number] [address] [place] [address], [place] [address] Oct, [facility] [address] [id number] [address] [place] [address], [place] [address] September, [facility] [address] [id number] [address] [place] [address], [place] [address] September, [facility] [address] [id number] [address] [place] [address], [place] [address] September, [facility] [address] [id number] [address] [place] [address], [place] [address] Aug, [facility] [address] [id number] [address] [place] [address], [place] [address] Aug, [facility] [address] [id number] [address] [place] [address], [place] [address] Aug, [facility] [address] [id number] [address] [place] [address], [place] [address] 16 Aug, 2011 [facility] [address] [id number] [address] [place] [address], [place] [address] Jul, [facility] [address] [id number] [address] [place] [address], [place] [address] Jun, [facility] [address] [id number] [address] [place] [address], [place] [address] 14 Jun, 2011 [facility] [address] [id number] [address] [place] [address], [place] [address] 13 Jun, 2011 [facility] [address] [id number] [address] [place] [address], [place] [address] 07 Jun, 2011 [facility] [address] [id number] [address] [place] [address], [place] [address] 03 Jun, 2011 [facility] [address] [id number] [address] [place] [address], [place] [address] 13 May, 2011 [facility] [address] [id number] [address] [place] [address], [place] [address] May, [facility] [address] [id number] [address] [place] [address], [place] [address] May, [facility] [address] [id number] [address] [place] [address], [place] [address] May, [facility] [address] [id number] [address] [place] [address], [place] [address] Apr, [facility] [address] [id number] [address] [place] [address], [place] [address] Apr, [facility] [address] [id number] [address] [place] [address], [place] [address] Apr, [facility] [address] [id number] [address] [place] [address], [place] [address] Mar, [facility] [address] [id number] [address] [place] [address], [place] [address] Mar, [facility] [address] [id number] [address] [place] [address], [place] [address] Mar, [facility] [address] [id number] [address] [place] [address], [place] [address] Feb, [facility] [address] [id number] [address] [place] [address], [place] [address] Feb, [facility] [address] [id number] [address] [place] [address], [place] [address] Feb, [facility] [address] [id number] [address] [place] [address], [place] [address] Nov, [facility] [address] [id number] [address] [place] [address], [place] [address] September, [facility] [address] [id number] [address] [place] [address], [place] [address] Aug, [facility] [address] [id number] [address] [place] [id number] 14 Jul, 2010 [facility] [address] [id number] [address] [place] [id number] May, [facility] [address] [id number] [address] [place] [id number] Apr, [facility] [address] [id number] [address] [place] [id number] Apr, [facility] [address] [id number] [address] [place] [id number] Apr, [facility] [address] [id number] [address] [place] [id number] Apr, [facility] [address] [facility] [id number] [address] [place] [id number] Apr, IMMUNIZATIONS No Known Immunizations SOCIAL HISTORY Never Assessed REASON FOR VISIT CCM note/COPD meds PLAN OF CARE VITAL SIGNS MEDICATIONS Medication Instructions Dosage Frequency Start Date End Date Duration S tatus Qvar 80 MCG/ACT Inhalation Twice a day 1 puff 12h September, Active Combivent Respimat 20-100 MCG/ACT Inhalation Four times a day 1 puf f 6h September, Active Xopenex 1.25 MG/3ML Inhalation 4 times a day prn 3 ml Dec, 30 days Active RESULTS No Results [...]
--- OUTSIDE RECORDS SUMMARY | 2019-07-17 11:06 | XMS REPORT ---
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 Role Phone WHIT GANDHI Unavailable PROBLEMS Type Condition ICD9-CM Code JIR49-EQ Code Onset Dates Condition S tatus SNOMED Code Problem Back pain M54.9 Active 511565541 Problem Diabetes E11.9 Active 95698032 Problem GERD (gastroesophageal reflux disease) K21.9 Active 549489046 Problem Hypertension I10 Active 0547712 3 Problem Anxiety disorder, unspecified F41.9 Active 381370027 Problem Other bipolar disorder F31.89 Active 80011696 Problem Fibromyalgia M79.7 Active 1341451 7 Problem Panic disorder with agoraphobia F40.01 Active 28218080 Problem Panlobular emphysema J43.1 Active 3343525 Problem Chronic obstructive pulmonary disease, unspecified J44.9 Active 17662054 Problem Akathisia G25.71 Active 394033447 Problem Lumbago with sciatica, left side M54.42 Active 147535507 Problem Migraine without aura and without status migrain osus, not intractable G43.009 Active 878271883 Problem Fibrocystic disease of right breast N60.11 Active 04059911 Problem Fibrocystic disease of left breast N60.12 Active 36800796 Problem Slow transit constipation K59.01 Acti ve 92677635 Problem Essential tremor G25.0 Active 609 593902 Problem Bipolar 1 disorder, depressed, moderate F31.32 Active 62162149 Problem Other chronic pain G89.29 Active 8 2914265 Problem Lumbago with sciatica, right side M54.41 Active 380167962 Problem Irritable bowel syndrome with constipation K58.1 Active 711801232 Problem Arthritis M19.90 Active 0123331 Problem Schizoaffective disorder, bipolar type F25.0 Active 64832154 Problem Irritable bowel syndrome with both constipation and diarrh ea K58.2 Active 52595129 Problem Attention deficit hyperactiv ity disorder (ADHD), predominantly inattentive type F90.0 Active 38476385 Problem Bipolar I disorder with depression F31.9 Active 75356539 Problem Chronic post-traumatic stress disorder (PTSD) F43. 12 Active 903217060 Problem Bipolar affective disorder, remission status unspecified F31.9 Active 09239507 Problem Mild persistent asthma without complication J45.30 Active 916352211 Problem Moderate persistent asthma without complication J4 5.40 Active 342281543 Problem Acute non-recurrent maxillary sinusitis J01.00 Active 08507797 Problem Bipolar 1 disorder, depressed, partial remission F 31.75 Active 82297460 ALLERGIES No Information ENCOUNTERS Encounter Location Date Diagnosis [facility] [address] [facility] [id number] [address] [place] [phone] Mar, [facility] [address] [facility] [id number] [address] [place] [address] Dec, [place] [address] [facility] [id number] [address] [place] [address] Nov, Bipolar 1 disorder, depresse d, partial remission F31.75 and Panic disorder with agoraphobia F40.01 [facility] [address] [facility] [id number] [address] [place] [address] Nov, Panlobular emphysema J43.1 [facility] [address] [facility] [id number] [address] [place] [address] Nov, Cerebrovascular accident (CV A) due to occlusion of right cerebellar artery I63.541 and Acute non-recurrent maxillary sinusitis J01.00 [facility] [address] [facility] [id number] [address] [place] [address] Nov, Panlobular emphysema J43.1 [facility] [address] [facility] [id number] [address] [place] [address] Nov, [facility] [address] [facility] [id number] [address] [place] [address] Nov, [facility] [address] [facility] [id number] [address] [place] [address] Nov, [facility] [address] [facility] [id number] [address] [place] [address] Nov, [facility] [address] [facility] [id number] [address] [place] [address] Nov, [facility] [address] [facility] [id number] [address] [place] [address] Nov, [facility] [address] [facility] [id number] [address] [place] [address] Nov, [facility] [address] [facility] [id number] [address] [place] [address] Nov, Mild persistent asthma witho ut complication J45.30 and Irritable bowel syndrome with both constipation and diarrhea K58.2 [facility] [address] [facility] [id number] [address] [place] [phone] Nov, [facility] [address] [facility] [id number] [address] [place] [address] Oct, [facility] [address] [facility] [id number] [address] [place] [address] Oct, [facility] [address] [facility] [id number] [address] [place] [address] Oct, Type 2 diabetes mellitus wit h diabetic neuropathy, unspecified 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 superintendent container terminal insulin 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 E11.40 ; Diabetes E11.9 ; Slow transit constipation K59.01 ; Edema of both legs R60.0 and Dysfunction of right eustachian tube H69.81 [facility] [address] [id number] [address] [place] [address] Oct, Frequent headaches R51 [facility] [address] [facility] [id number] [address] [place] [address] Oct, [facility] [address] [facility] [id number] [address] [place] [phone] Oct, [facility] [address] [facility] [id number] [address] [place] [address] Oct, [facility] [address] [facility] [id number] [address] [place] [address] Oct, [facility] [address] [facility] [id number] [address] [place] [address] Oct, [facility] [address] [facility] [id number] [address] [place] [address] Oct, [facility] [address] [facility] [id number] [address] [place] [address] Oct, [facility] [address] [facility] [id number] [address] [place] [address] Oct, [facility] [address] [facility] [id number] [address] [place] [address] September, Frequent headaches R51 [facility] [address] [facility] [id number] [address] [place] [address] September, Bilateral otitis media with effusion H65.93 ; Dizziness R42 and Essential tremor G25.0 [facility] [address] [facility] [id number] [address] [place] [address] September, Chronic obstructive pulmonar y disease, unspecified COPD type J44.9 [facility] [address] [facility] [id number] [address] [place] [address] September, Chronic obstructive pulmonar y disease, unspecified COPD type J44.9 [facility] [address] [facility] [id number] [address] [place] [address] September, Migraine without aura and wi thout status migrainosus, not intractable G43.009 [facility] [address] [facility] [id number] [address] [place] [address] September, [facility] [address] [facility] [id number] [address] [place] [address] September, [facility] [address] [facility] [id number] [address] [place] [address] September, [place] [address] [facility] [id number] [address] [place] [address] September, Frequent headaches R51 [place] [address] [facility] [id number] [address] [place] [address] Aug, [place] [address] [facility] [id number] [address] [place] [address] Aug, Breast mass, right N63.10 [place] [address] [facility] [id number] [address] [place] [address] Aug, Breast lump N63.0 [place] [address] [facility] [id number] [address] [place] [address] Aug, [place] [address] [place] [id number] [place] [address] Aug, Bipolar affective disorder, remission status unspecified F31.9 and Diabetes E11.9 [place] [address] [place] [id number] [address] [place] [address] Aug, Diabetes E11.9 ; Schizoaffec tive disorder, bipolar type F25.0 ; Pharyngitis due to other organism J02.8 ; Panlobular emphysema J43.1 and Irritable bowel syndrome with both constipation and diarrhea K58.2 [place] [id number] [place] [address] Aug, Abnormal mammogram R92.8 [place] [address] [place] [id number] [address] [place] [address] Aug, [place] [address] [place] [id number] [address] [place] [address] Aug, Bipolar 1 disorder, depresse d, moderate F31.32 ; Panic disorder with agoraphobia F40.01 and Chronic post-traumatic stress disorder (PTSD) F43.12 [place] [address] [place] [id number] [address] [place] [address] Aug, [place] [address] [place] [id number] [address] [place] [address] Aug, [facility] [address] [id number] [address] [place] [address] Aug, [facility] [address] [facility] [id number] [address] [place] [address] Jul, [facility] [address] [facility] [id number] [address] [place] [address] Jul, Mild persistent asthma witho ut complication J45.30 [facility] [address] [id number] [address] [place] [phone] 19 Jul, 2017 Mild persistent asthma witho ut complication J45.30 [facility] [address] [facility] [id number] [address] [place] [address] 15 Jul, 2017 Bipolar affective disorder, remission status unspecified F31.9 ; Diabetes E11.9 and Irritable bowel syndrome with constipation K58.1 [facility] [address] [facility] [id number] [address] [place] [address] Jul, [facility] [address] [facility] [id number] [address] [place] [address] Jul, [facility] [address] [facility] [id number] [address] [place] [address] Jul, Frequent headaches R51 [facility] [address] [facility] [id number] [address] [place] [address] Jul, [facility] [address] [facility] [id number] [address] [place] [address] Jul, [facility] [address] [facility] [id number] [address] [place] [address] Jul, [facility] [address] [facility] [id number] [address] [place] [address] Jul, Frequent headaches R51 ; Fib rocystic disease of left breast N60.12 ; Fibrocystic disease of right breast N60.11 and Diabetes E11.9 [facility] [address] [facility] [id number] [address] [place] [address] 02 Jul, 2017 [facility] [address] [facility] [id number] [address] [place] [address] Jul, [facility] [address] [facility] [id number] [address] [place] [address] 21 Jun, 2017 Exudative tonsillitis J03.90 [facility] [address] [facility] [id number] [address] [place] [address] 20 Jun, 2017 [facility] [address] [facility] [id number] [address] [place] [id number] 19 Jun, 2017 [facility] [address] [address] 15 Jun, 2017 Mild persistent asthma witho ut complication J45.30 ; Chronic obstructive pulmonary disease, unspecified COPD type J44.9 and Exudative tonsillitis J03.90 [facility] [address] [place] [address] 13 Jun, 2017 Encounter for immunization Z 23 [facility] [address] [place] [id number] [address] [place] [address] 12 Jun, 2017 [facility] [address] [place] [id number] [address] [place] [address] 12 Jun, 2017 [facility] [address] [place] [address] 09 Jun, 2017 [facility] [address] [facility] [id number] [address] [place] [address] 06 Jun, 2017 Tonsillitis J03.90 [facility] [address] [facility] [id number] [address] [place] [address] 05 Jun, 2017 [facility] [address] [facility] [id number] [address] [place] [address] 03 Jun, 2017 Acute non-recurrent maxillar y sinusitis J01.00 [facility] [address] [place] [address] Jun, [facility] [address] [address] May, [facility] [address] [place] [id number] [address] [place] [phone] May, [facility] [address] [address] May, GERD (gastroesophageal reflu x disease) K21.9 [facility] [address] [address] May, Migraine without aura and wi thout status migrainosus, not intractable G43.009 [place] [address] [address] May, [place] [address] [address] May, [facility] [address] [address] May, Panlobular emphysema J43.1 a nd Acute non-recurrent maxillary sinusitis J01.00 [place] [address] [address] May, Bipolar 1 disorder, depresse d, moderate F31.32 ; Panic disorder with agoraphobia F40.01 and Akathisia G25.71 [facility] [address] [address] Apr, [place] [address] [address] Apr, [place] [address] [address] Apr, Acute non-recurrent maxillar y sinusitis J01.00 [place] [address] [address] Apr, Panlobular emphysema J43.1 [facility] [address] [facility] [id number] [address] [place] [address] Apr, [facility] [address] [facility] [id number] [address] [place] [address] Apr, Exudative tonsillitis J03.90 and Sore throat J02.9 [facility] [address] [facility] [id number] [address] [place] [address] Mar, [facility] [address] [facility] [id number] [address] [place] [address] Mar, Acute non-recurrent maxillar y sinusitis J01.00 [place] [address] [facility] [id number] [address] [place] [address] Mar, [facility] [address] [place] [id number] [place] [address] Mar, Panlobular emphysema J43.1 a nd Diabetes E11.9 [facility] [address] [facility] [id number] [address] [place] [phone] Mar, [facility] [address] [facility] [id number] [address] [place] [address] Feb, Wheezing R06.2 and Acute rec urrent pansinusitis J01.41 [facility] [address] [facility] [id number] [address] [place] [address] Feb, [facility] [address] [facility] [id number] [address] [place] [address] Feb, Acute non-recurrent maxillar y sinusitis J01.00 [facility] [address] [facility] [id number] [address] [place] [address] Feb, Chronic obstructive pulmonar y disease, unspecified J44.9 [facility] [address] [facility] [id number] [address] [place] [address] Feb, Hypoxemia R09.02 and Chronic obstructive pulmonary disease, unspecified J44.9 [facility] [address] [facility] [id number] [address] [place] [address] 28 Jan, 2017 Bipolar 1 disorder, depresse d, moderate F31.32 ; Panic disorder with agoraphobia F40.01 ; Chronic post-traumatic stress disorder (PTSD) F43.12 ; Diabetes E11.9 and Moderate persistent asthma without complication J45.40 [facility] [address] [id number] [address] [place] [address] Jan, [facility] [address] [id number] [address] [place] [address] Jan, Acute non-recurrent maxillar y sinusitis J01.00 [place] [address] [facility] [id number] [address] [place] [address] Jan, [place] [address] [id number] [address] [place] [address] Jan, [facility] [address] [id number] [address] [place] [address] Jan, [facility] J[facility].40 and Hypoxemia R09.02 [place] [address] [facility] [id number] [address] [place] [address] Jan, Moderate persistent asthma w [facility] complication J45.40 and Hypoxemia R09.02 [place] [address] [facility] [id number] [address] [place] [address] Jan, [facility] [address] [id number] [address] [place] [address] Dec, Acute non-recurrent maxillar y sinusitis J01.00 [facility] [address] [facility] [id number] [address] [place] [address] Dec, Chronic obstructive pulmonar y disease, unspecified J44.9 [facility] [address] [facility] [id number] [address] [place] [address] Dec, [place] [address] [facility] [id number] [address] [place] [address] Dec, Mild persistent asthma witho ut complication J45.30 and Other chronic pain G89.29 [facility] [address] [facility] [id number] [address] [place] [address] Nov, [facility] [address] [facility] [id number] [address] [place] [address] Nov, Acute non-recurrent maxillar y sinusitis J01.00 [facility] [address] [facility] [id number] [address] [place] [address] Nov, [place] [address] [place] [id number] [place] [address] Nov, [place] [address] [place] [id number] [address] [place] [address] Oct, [place] [address] [place] [id number] [address] [place] [address] Oct, Bipolar 1 disorder, depresse d, partial remission F31.75 ; Panic disorder with agoraphobia F40.01 and Chronic post-traumatic stress disorder (PTSD) F43.12 [place] [address] [place] [id number] [address] [place] [address] Oct, Acute non-recurrent maxillar y sinusitis J01.00 [place] [address] [facility] [id number] [address] [place] [address] Oct, [facility] [address] [place] [id number] [address] [place] [address] Oct, Diabetes E11.9 [place] [address] [facility] [id number] [address] [place] [address] September, Diabetes E11.9 [place] [address] [facility] [id number] [address] [place] [address] September, Diabetes E11.9 and Sinus tac hycardia R00.0 [place] [address] [facility] [id number] [address] [place] [address] September, [facility] [address] [facility] [id number] [address] [place] [address] September, [facility] [address] [place] [id number] [address] [place] [address] Aug, Diabetes E11.9 and Lumbago w ith sciatica, right side M54.41 [facility] [address] [place] [id number] [address] [place] [address] Aug, [facility] [address] [place] [id number] [address] [place] [address] Jul, Bipolar 1 disorder, depresse d, moderate F31.32 ; Panic disorder with agoraphobia F40.01 and Chronic post-traumatic stress disorder (PTSD) F43.12 [facility] [address] [place] [address] Jul, Sore throat J02.9 [facility] [address] [facility] [id number] [address] [place] [address] Jul, [facility] [address] [place] [id number] [address] [place] [address] Jul, [facility] [address] [place] [id number] [address] [place] [address] Jul, [facility] [address] [place] [id number] [address] [place] [address] Jul, [facility] [address] [facility] [id number] [address] [place] [address] Jul, Sore throat J02.9 and Pharyn gitis, unspecified etiology J02.9 [facility] [address] [facility] [id number] [address] [place] [address] Jun, [facility] [address] [place] [id number] [address] [place] [address] Jun, Diabetes E11.9 [facility] [address] [place] [id number] [address] [place] [phone] Jun, [facility] [address] [id number] [address] [place] [phone] Jun, [facility] [address] [id number] [address] [place] [id number] Jun, [facility] [address] [id number] [address] [place] [phone] Jun, [facility] [address] [id number] [address] [place] [phone] Jun, [facility] [address] [id number] [address] [place] [id number] Jun, [facility] [address] [id number] [address] [place] [id number] Jun, [facility] [address] [id number] [address] [place] [id number] Jun, [facility] [address] [id number] [address] [place] [id number] May, Diabetes E11.9 ; Other chron ic pain G89.29 ; Acute recurrent maxillary sinusitis J01.01 ; Bipolar I disorder with depression F31.9 and Anxiety disorder, unspecified F41.9 [facility] [address] [id number] [address] [place] [id number] May, [facility] [address] [id number] [address] [place] [id number] May, Diabetes E11.9 ; Bipolar I d isorder with depression F31.9 ; Anxiety disorder, unspecified F41.9 ; Other chronic pain G89.29 and Acute recurrent maxillary sinusitis J01.01 [facility] [address] [id number] [address] [place] [id number] May, [facility] [address] [facility] [id number] [address] [place] [phone] May, Attention deficit hyperactiv ity disorder (ADHD), predominantly inattentive type F90.0 [facility] [address] [id number] [address] [place] [id number] May, [facility] [address] [facility] [id number] [address] [place] [address] Apr, Attention deficit hyperactiv ity disorder (ADHD), predominantly inattentive type F90.0 and Non-seasonal allergic rhinitis due to other allergic trigger J30.89 [facility] [address] [id number] [address] [place] [address] 15 Apr, 2016 Bipolar 1 disorder, depresse d, moderate F31.32 ; Panic disorder with agoraphobia F40.01 and Chronic post-traumatic stress disorder (PTSD) F43.12 [place] [address] [place] [id number] [address] [place] [address] 06 Apr, 2016 Dental examination Z01.20 [facility] [address] [facility] [id number] [address] [place] [id number] Mar, [facility] [address] [facility] [id number] [address] [place] [address] Mar, [place] [address] [place] [id number] [address] [place] [id number] Mar, Bipolar I disorder with depr ession F31.9 and Anxiety disorder, unspecified F41.9 [place] [address] [facility] [id number] [address] [place] [id number] 08 Mar, 2016 Panic disorder with agorapho syd F40.01 ; Bipolar 1 disorder, depressed, moderate F31.32 and Chronic post-traumatic stress disorder (PTSD) F43.12 [facility] [address] [facility] [id number] [address] [place] [address] 04 Mar, 2016 [place] [address] [facility] [id number] [address] [place] [id number] 02 Mar, 2016 Dental caries K02.9 [place] [address] [place] [id number] [address] [place] [address] 24 Feb, 2016 Lumbago with sciatica, left side M54.42 ; Lumbago with sciatica, right side M54.41 and Other chronic pain G89.29 [facility] [address] [facility] [id number] [address] [place] [id number] 17 Feb, 2016 [facility] [address] [place] [id number] [place] [id number] 14 Feb, 2016 [facility] [address] [place] [id number] [place] [phone] 13 Feb, 2016 Bipolar I disorder with depr ession F31.9 ; PTSD (post-traumatic stress disorder) F43.10 and Mood disorder F39 [facility] [address] [place] [id number] [place] [id number] 13 Feb, 2016 [facility] [address] [address] 11 Feb, 2016 Dental examination Z01.20 [facility] [address] [address] 07 Feb, 2016 [facility] [address] [place] [id number] [place] [id number] 03 Feb, 2016 Acute bronchitis, unspecifie d organism J20.9 [facility] [address] [place] [id number] [address] [place] [address] Jan, Mood disorder F39 ; Migraine without aura and without status migrainosus, not intractable G43.009 ; Irritable bowel syndrome, unspecified type K58.9 ; Diabetes E11.9 and Encounter for immunization Z23 [facility] [address] [place] [id number] [address] [place] [address] 15 Jan, 2016 [facility] [address] [place] [id number] [place] [phone] 06 Jan, 2016 [facility] [address] [place] [id number] [address] [place] [phone] Jan, [facility] [address] [id number] [address] [place] [phone] Jan, [facility] [address] [facility] [id number] [address] [place] [phone] Jan, [facility] [address] [facility] [id number] [address] [place] [address] Dec, Bipolar I disorder with depr ession F31.9 ; PTSD (post-traumatic stress disorder) F43.10 and Panic disorder with agoraphobia F40.01 [facility] [address] [facility] [id number] [address] [place] [id number] Dec, Chronic obstructive pulmonar y disease, unspecified COPD type J44.9 ; Tremor R25.1 and Anxiety F41.9 [facility] [address] [facility] [id number] [address] [place] [address] Dec, [facility] [address] [facility] [id number] [address] [place] [address] Nov, Tremors of nervous system R2 5.1 and Cramping of feet R25.2 [facility] [address] [facility] [id number] [address] [place] [address] Nov, [facility] [address] [facility] [id number] [address] [place] [address] Nov, [facility] [address] [facility] [id number] [address] [place] [address] Oct, Chronic obstructive pulmonar y disease, unspecified J44.9 [facility] [address] [facility] [id number] [address] [place] [address] Oct, [facility] [address] [facility] [id number] [address] [place] [address] Oct, Tremor R25.1 [facility] [address] [facility] [id number] [address] [place] [address] Oct, Bipolar I disorder with depr ession F31.9 ; Diabetes E11.9 ; PTSD (post-traumatic stress disorder) F43.10 and Panic disorder with agoraphobia F40.01 [facility] [address] [facility] [id number] [address] [place] [address] Oct, Mood disorder F39 [facility] [address] [facility] [id number] [address] [place] [address] September, [facility] [address] [place] [id number] [address] [place] [address] September, Diabetes E11.9 ; Bipolar I d isorder with depression F31.9 ; PTSD (post-traumatic stress disorder) F43.10 and Panic disorder with agoraphobia F40.01 [place] [address] [facility] [id number] [address] [place] [address] September, Mood disorder F39 ; Schizoaf fective disorder, unspecified type F25.9 ; Arthritis M19.90 ; Tremor R25.1 ; Acute non-recurrent frontal sinusitis J01.10 and Blood in stool K92.1 [place] [address] [place] [id number] [address] [place] [address] September, [facility] [address] [facility] [id number] [address] [place] [address] September, Chronic obstructive pulmonar y disease, unspecified J44.9 [place] [address] [facility] [id number] [address] [place] [address] September, Diabetes E11.9 [facility] [address] [facility] [id number] [address] [place] [address] Aug, Other bipolar disorder F31.8 9 and Anxiety disorder, unspecified F41.9 [facility] [address] [facility] [id number] [address] [place] [address] Aug, [place] [address] [place] [id number] [address] [place] [address] Aug, Diabetes E11.9 [place] [address] [facility] [id number] [address] [place] [address] 18 Aug, 2015 [facility] [address] [id number] [address] [place] [id number] 14 Aug, 2015 Diabetes E11.9 ; Fatigue R53 .83 and Dizziness R42 [facility] [address] [id number] [address] [place] [address] 13 Aug, 2015 Other bipolar disorder F31.8 9 [facility] [address] [id number] [address] [place] [address] Aug, Generalized anxiety disorder F41.1 [facility] [address] [id number] [address] [place] [address] Aug, Other bipolar disorder F31.8 9 and Anxiety disorder, unspecified F41.9 [facility] [address] [id number] [address] [place] [phone] Aug, [facility] [address] [id number] [address] [place] [id number] 29 Jul, 2015 [facility] [address] [id number] [address] [place] [phone] 24 Jul, 2015 [facility] [address] [id number] [address] [place] [id number] 23 Jul, 2015 Bronchitis J40 [facility] [address] [id number] [address] [place] [address] Jul, Anxiety disorder F41.9 [facility] [address] [id number] [address] [place] [id number] Jul, Other bipolar disorder F31.8 9 and Anxiety disorder, unspecified F41.9 [facility] [address] [id number] [address] [place] [id number] 18 Jul, 2015 Other bipolar disorder F31.8 9 and Fibromyalgia M79.7 [facility] [address] [id number] [address] [place] [id number] 10 Jul, 2015 [facility] [address] [id number] [address] [place] [address] Jul, [facility] [address] [facility] [id number] [address] [place] [address] Jul, [facility] [address] [place] [id number] [address] [place] [address] Jul, Other bipolar disorder F31.8 9 and Anxiety disorder, unspecified F41.9 [facility] [address] [facility] [id number] [address] [place] [address] Jun, GERD (gastroesophageal reflu x disease) K21.9 [facility] [address] [facility] [id number] [place] [id number] Jun, [facility] [address] [place] [id number] [place] [address] May, [facility] [address] [address] May, Diabetes E11.9 ; Back pain M 54.9 ; GERD (gastroesophageal reflux disease) K21.9 ; Hypertension I10 and Peripheral neuropathy G62.9 [facility] [address] [place] [id number] [place] [address] Mar, [facility] [address] [place] [id number] [place] [address] Mar, [facility] [address] [address] Mar, Acute sinusitis J01.90 and O titis media, left H66.92 [facility] [address] [place] [id number] [address] [place] [address] Feb, [facility] [address] [place] [id number] [place] [address] Feb, [facility] [address] [place] [id number] [place] [address] Feb, [facility] [address] [place] [address] Feb, [facility] [address] [facility] [id number] [address] [place] [address] Jan, [facility] [address] [place] [id number] [address] [place] [address] Jan, Diabetes 250.00 and Back higinio n 724.5 [facility] [address] [place] [id number] [place] [address] Jan, [facility] [address] [place] [id number] [address] [place] [address] Dec, Diabetes 250.00 ; Benign ess ential hypertension 401.1 and Allergic rhinitis 477.9 [facility] [address] [place] [id number] [address] [place] [phone] Dec, [facility] [address] [address] Dec, [facility] [address] [place] [id number] [address] [place] [address] Dec, Psychosis 298.9 [facility] [address] [address] Dec, Medication side effect 995.2 0 and Generalized anxiety disorder 300.02 [facility] [address] [place] [id number] [address] [place] [address] Dec, Acquired cognitive dysfuncti on 294.9 [facility] [address] [place] [id number] [address] [place] [address] Dec, [facility] [address] [place] [id number] [place] [address] Dec, Unspecified myalgia and myos itis 729.1 and Generalized anxiety disorder 300.02 [facility] [address] [place] [id number] [address] [place] [address] Nov, [facility] [address] [place] [id number] [place] [address] [place] [address] Nov, [facility] [address] [id number] [address] [place] [address] Nov, [facility] [address] [facility] [id number] [address] [place] [address] Nov, Upper respiratory infection 465.9 and Chronic airway obstruction, not elsewhere classified 496 [facility] [address] [id number] [address] [place] [address] Nov, Hyponatremia 276.1 [facility] [address] [id number] [address] [place] [address] Oct, [facility] [address] [id number] [address] [place] [address] Oct, [facility] [address] [facility] [id number] [address] [place] [address] Oct, [facility] [address] [id number] [address] [place] [address] Oct, [facility] [address] [id number] [address] [place] [address] Oct, Hyponatremia 276.1 [facility] [address] [facility] [id number] [address] [place] [phone] Oct, [facility] [address] [id number] [address] [place] [address] Oct, [facility] [address] [facility] [id number] [address] [place] [address] Oct, Generalized anxiety disorder 300.02 [facility] [address] [id number] [address] [place] [address] Oct, Generalized anxiety disorder 300.02 and Diabetes 250.00 [facility] [address] [id number] [address] [place] [address] 14 Aug, 2014 [facility] [address] [facility] [id number] [address] [place] [address] Aug, [facility] [address] [id number] [address] [place] [address], [place] [address] Jul, [facility] [address] [id number] [address] [place] [address], [place] [address] Jul, [facility] [address] [id number] [address] [place] [address], [place] [address] Jun, [facility] [address] [id number] [address] [place] [address], [place] [address] Jun, [facility] [address] [id number] [address] [place] [address], [place] [address] Jun, [facility] [address] [id number] [address] [place] [address], [place] [address] Jun, [facility] [address] [id number] [address] [place] [address], [place] [address] Jun, [facility] [address] [id number] [address] [place] [address], [place] [address] May, [facility] [address] [id number] [address] [place] [address], [place] [address] May, [facility] [address] [id number] [address] [place] [address], [place] [address] Apr, [facility] [address] [id number] [address] [place] [address], [place] [address] Apr, [facility] [address] [id number] [address] [place] [address], [place] [id number] 18 Apr, 2013 [facility] [address] [id number] [address] [place] [address], [place] [address] 18 Apr, 2013 [facility] [address] [id number] [address] [place] [address], [place] [address] 17 Apr, 2013 [facility] [address] [id number] [address] [place] [address], [place] [address] Apr, [facility] [address] [id number] [address] [place] [address], [place] [address] Apr, [facility] [address] [id number] [address] [place] [address], [place] [address] Apr, [facility] [address] [id number] [address] [place] [address], [place] [address] Feb, [facility] [address] [id number] [address] [place] [address], [place] [address] Feb, [facility] [address] [id number] [address] [place] [address], [place] [address] Jan, [facility] [address] [id number] [address] [place] [address], [place] [address] Jan, [facility] [address] [id number] [address] [place] [address], [place] [address] Dec, [facility] [address] [id number] [address] [place] [address], [place] [address] Dec, [facility] [address] [id number] [address] [place] [address], [place] [address] Dec, [facility] [address] [id number] [address] [place] [address], [place] [address] Nov, [facility] [address] [id number] [address] [place] [address], [place] [address] Nov, [facility] [address] [id number] [address] [place] [address], [place] [address] Nov, [facility] [address] [id number] [address] [place] [address], [place] [address] Oct, [facility] [address] [id number] [address] [place] [address], [place] [address] Oct, [facility] [address] [id number] [address] [place] [address], [place] [address] Oct, [facility] [address] [id number] [address] [place] [address], [place] [address] September, [facility] [address] [id number] [address] [place] [address], [place] [address] September, [facility] [address] [id number] [address] [place] [address], [place] [address] September, [facility] [address] [id number] [address] [place] [address], [place] [address] Aug, [facility] [address] [id number] [address] [place] [address], [place] [address] Aug, [facility] [address] [id number] [address] [place] [address], [place] [address] Aug, [facility] [address] [id number] [address] [place] [address], [place] [address] 16 Aug, 2011 [facility] [address] [id number] [address] [place] [address], [place] [address] Jul, [facility] [address] [id number] [address] [place] [address], [place] [address] Jun, [facility] [address] [id number] [address] [place] [address], [place] [address] 14 Jun, 2011 [facility] [address] [id number] [address] [place] [address], [place] [address] Jun, [facility] [address] [id number] [address] [place] [address], [place] [address] 07 Jun, 2011 [facility] [address] [id number] [address] [place] [address], [place] [address] Jun, [facility] [address] [id number] [address] [place] [address], [place] [address] May, [facility] [address] [id number] [address] [place] [address], [place] [address] May, [facility] [address] [id number] [address] [place] [address], [place] [address] May, [facility] [address] [id number] [address] [place] [address], [place] [address] 04 May, 2011 [facility] [address] [id number] [address] [place] [address], [place] [address] Apr, [facility] [address] [id number] [address] [place] [address], [place] [id number] 13 Apr, 2011 [facility] [address] [id number] [address] [place] [address], [place] [id number] 05 Apr, 2011 [facility] [address] [id number] [address] [place] [address], [place] [id number] Mar, [facility] [address] [id number] [address] [place] [address], [place] [id number] Mar, [facility] [address] [id number] [address] [place] [address], [place] [id number] Mar, [facility] [address] [id number] [address] [place] [address], [place] [id number] Feb, [facility] [address] [id number] [address] [place] [address], [place] [id number] Feb, [facility] [address] [id number] [address] [place] [address], [place] [id number] Feb, [facility] [address] [id number] [address] [place] [address], [place] [id number] Nov, [facility] [address] [id number] [address] [place] [address], [place] [id number] September, [facility] [address] [id number] [address] [place] [address], [place] [id number] 12 Aug, 2010 [facility] [address] [id number] [address] [place] [address], [place] [id number] 14 Jul, 2010 [facility] [address] [id number] [address] [place] [address], [place] [id number] May, [facility] [address] [id number] [address] [place] [address], [place] [id number] Apr, [facility] [address] [facility] [id number] [address] [place] [id number] Apr, [facility] [address] [facility] [id number] [address] [place] [id number] Apr, [facility] [address] [facility] [id number] [address] [place] [id number] Apr, [facility] [address] [facility] [id number] [address] [place] [id number] Apr, IMMUNIZATIONS No Known Immunizations SOCIAL HISTORY Never Assessed REASON FOR VISIT Refill request PLAN OF CARE VITAL SIGNS MEDICATIONS Medication Instructions Dosage Frequency Start Date End Date Duration S tatus Ondansetron 4 MG Orally every 8 hrs PRN 1 tablet on the t ongue and allow to dissolve Apr, 30 days Active RESULTS No Results PROCEDURES [...]
--- OUTSIDE RECORDS SUMMARY | 2019-07-17 11:07 | XMS REPORT ---
Author Author Sujey WILLS Organization [facility] Address [address] [place] [address] Care Team Providers Care Lumpia Wrapper Maker Name Role Phone JOHANNGISELEYVON Unavailable PROBLEMS Type Condition ICD9-CM Code BLR85-TS Code Onset Dates Condition S tatus SNOMED Code Problem Back pain M54.9 Active 097143358 Problem Diabetes E11.9 Active 71812128 Problem GERD (gastroesophageal reflux disease) K21.9 Active 803753078 Problem Hypertension I10 Active 6997666 3 Problem Anxiety disorder, unspecified F41.9 Active 098529662 Problem Other bipolar disorder F31.89 Active 93711056 Problem Fibromyalgia M79.7 Active 5441797 7 Problem Panic disorder with agoraphobia F40.01 Active 55713713 Problem Panlobular emphysema J43.1 Active 2028265 Problem Chronic obstructive pulmonary disease, unspecified J44.9 Active 27056753 Problem Akathisia G25.71 Active 791262177 Problem Lumbago with sciatica, left side M54.42 Active 918978543 Problem Migraine without aura and without status migrain osus, not intractable G43.009 Active 789247917 Problem Fibrocystic disease of right breast N60.11 Active 65163821 Problem Fibrocystic disease of left breast N60.12 Active 74558663 Problem Slow transit constipation K59.01 Acti ve 38263039 Problem Essential tremor G25.0 Active 609 861810 Problem Bipolar 1 disorder, depressed, moderate F31.32 Active 84424390 Problem Other chronic pain G89.29 Active 8 2870173 Problem Lumbago with sciatica, right side M54.41 Active 876136153 Problem Irritable bowel syndrome with constipation K58.1 Active 600568916 Problem Arthritis M19.90 Active 8075064 Problem Schizoaffective disorder, bipolar type F25.0 Active 83838878 Problem Irritable bowel syndrome with both constipation and diarrh ea K58.2 Active 29393022 Problem Attention deficit hyperactiv ity disorder (ADHD), predominantly inattentive type F90.0 Active 80893344 Problem Bipolar I disorder with depression F31.9 Active 54127098 Problem Chronic post-traumatic stress disorder (PTSD) F43. 12 Active 802033746 Problem Bipolar affective disorder, remission status unspecified F31.9 Active 21744547 Problem Mild persistent asthma without complication J45.30 Active 309758090 Problem Moderate persistent asthma without complication J4 5.40 Active 386222855 Problem Acute non-recurrent maxillary sinusitis J01.00 Active 14930908 Problem Bipolar 1 disorder, depressed, partial remission F 31.75 Active [id number] ALLERGIES No Information ENCOUNTERS Encounter Location Date Diagnosis [place] [address] [facility] [id number] [address] [place] [phone] Mar, [place] [address] [facility] [id number] [address] [place] [phone] Dec, [place] [address] [place] [id number] [address] [place] [phone] Nov, Bipolar 1 disorder, depresse d, partial remission F31.75 and Panic disorder with agoraphobia F40.01 [place] [address] [facility] [id number] [address] [place] [phone] Nov, Panlobular emphysema J43.1 [facility] [address] [facility] [id number] [address] [place] [phone] Nov, Cerebrovascular accident (CV A) due to occlusion of right cerebellar artery I63.541 and Acute non-recurrent maxillary sinusitis J01.00 [facility] [address] [facility] [id number] [address] [place] [phone] Nov, Panlobular emphysema J43.1 [facility] [address] [facility] [id number] [address] [place] [phone] Nov, [facility] [address] [facility] [id number] [address] [place] [phone] Nov, [facility] [address] [facility] [id number] [address] [place] [phone] Nov, [facility] [address] [id number] [address] [place] [phone] Nov, [facility] [address] [id number] [address] [place] [phone] Nov, [facility] [address] [facility] [id number] [address] [place] [phone] Nov, [facility] [address] [id number] [address] [place] [phone] Nov, [facility] [address] [facility] [id number] [address] [place] [phone] Nov, Mild persistent asthma witho ut complication J45.30 and Irritable bowel syndrome with both constipation and diarrhea K58.2 [facility] [address] [facility] [id number] [address] [place] [phone] Nov, [facility] [address] [facility] [id number] [address] [place] [phone] Oct, [facility] [address] [facility] [id number] [address] [place] [phone] Oct, [facility] [address] [facility] [id number] [address] [place] [phone] Oct, Type 2 diabetes mellitus wit h diabetic neuropathy, unspecified whether jail insulin use E11.40 ; Diabetes E11.9 ; Slow transit constipation K59.01 ; Edema of both legs R60.0 and Dysfunction of right eustachian tube H69.81 [facility] [address] [facility] [id number] [address] [place] [phone] Oct, Frequent headaches R51 [facility] [address] [facility] [id number] [address] [place] [phone] Oct, [facility] [address] [facility] [id number] [address] [place] [phone] Oct, [facility] [address] [facility] [id number] [address] [place] [phone] Oct, [facility] [address] [facility] [id number] [address] [place] [phone] Oct, [facility] [address] [facility] [id number] [address] [place] [phone] Oct, [facility] [address] [facility] [id number] [address] [place] [phone] Oct, [facility] [address] [facility] [id number] [address] [place] [phone] Oct, [facility] [address] [facility] [id number] [address] [place] [phone] Oct, [facility] [address] [facility] [id number] [address] [place] [phone] September, Frequent headaches R51 [facility] [address] [facility] [id number] [address] [place] [phone] September, Bilateral otitis media with effusion H65.93 ; Dizziness R42 and Essential tremor G25.0 [facility] [address] [facility] [id number] [address] [place] [phone] September, Chronic obstructive pulmonar y disease, unspecified COPD type J44.9 [facility] [address] [facility] [id number] [address] [place] [phone] September, Chronic obstructive pulmonar y disease, unspecified COPD type J44.9 [facility] [address] [facility] [id number] [address] [place] [phone] September, Migraine without aura and wi thout status migrainosus, not intractable G43.009 [facility] [address] [facility] [id number] [address] [place] [phone] September, [facility] [address] [facility] [id number] [address] [place] [phone] September, [facility] [address] [facility] [id number] [address] [place] [phone] September, [place] [address] [place] [id number] [address] [place] [phone] September, Frequent headaches R51 [place] [address] [place] [id number] [address] [place] [phone] Aug, [place] [address] [address] Aug, Breast mass, right N63.10 [place] [address] [id number] Aug, Breast lump N63.0 [place] [address] [phone] Aug, [place] [address] [phone] Aug, Bipolar affective disorder, remission status unspecified F31.9 and Diabetes E11.9 [place] [address] [phone] Aug, Diabetes E11.9 ; Schizoaffec tive disorder, bipolar type F25.0 ; Pharyngitis due to other organism J02.8 ; Panlobular emphysema J43.1 and Irritable bowel syndrome with both constipation and diarrhea K58.2 [place] [address] [phone] Aug, Abnormal mammogram R92.8 [place] [id number] [place] [phone] Aug, [place] [address] [address] Aug, Bipolar 1 disorder, depresse d, moderate F31.32 ; Panic disorder with agoraphobia F40.01 and Chronic post-traumatic stress disorder (PTSD) F43.12 [place] [address] [place] [id number] [address] [place] [phone] Aug, [place] [address] [place] [id number] [address] [place] [phone] Aug, [facility] [address] [facility] [id number] [address] [place] [phone] Aug, [facility] [address] [facility] [id number] [address] [place] [phone] Jul, [facility] [address] [facility] [id number] [address] [place] [id number] Jul, Mild persistent asthma witho ut complication J45.30 [facility] [address] [facility] [id number] [address] [place] [phone] 19 Jul, 2017 Mild persistent asthma witho ut complication J45.30 [facility] [address] [facility] [id number] [address] [place] [phone] 15 Jul, 2017 Bipolar affective disorder, remission status unspecified F31.9 ; Diabetes E11.9 and Irritable bowel syndrome with constipation K58.1 [facility] [address] [facility] [id number] [address] [place] [phone] Jul, [facility] [address] [facility] [id number] [address] [place] [phone] Jul, [place] [address] [facility] [id number] [address] [place] [phone] Jul, Frequent headaches R51 [place] [address] [facility] [id number] [address] [place] [phone] Jul, [facility] [address] [facility] [id number] [address] [place] [phone] Jul, [facility] [address] [facility] [id number] [address] [place] [phone] Jul, [place] [address] [facility] [id number] [address] [place] [phone] Jul, Frequent headaches R51 ; Fib rocystic disease of left breast N60.12 ; Fibrocystic disease of right breast N60.11 and Diabetes E11.9 [place] [address] [facility] [id number] [address] [place] [phone] 02 Jul, 2017 [facility] [address] [facility] [id number] [address] [place] [phone] Jul, [facility] [address] [facility] [id number] [address] [place] [phone] 21 Jun, 2017 Exudative tonsillitis J03.90 [facility] [address] [facility] [id number] [address] [place] [phone] 20 Jun, 2017 [facility] [address] [facility] [id number] [address] [place] [phone] 19 Jun, 2017 [facility] [address] [facility] [id number] [address] [place] [phone] 15 Jun, 2017 Mild persistent asthma witho ut complication J45.30 ; Chronic obstructive pulmonary disease, unspecified COPD type J44.9 and Exudative tonsillitis J03.90 [facility] [address] [facility] [id number] [address] [place] [phone] 13 Jun, 2017 Encounter for immunization Z 23 [facility] [address] [facility] [id number] [address] [place] [phone] 12 Jun, 2017 [facility] [address] [facility] [id number] [address] [place] [phone] 12 Jun, 2017 [facility] [address] [facility] [id number] [address] [place] [phone] 09 Jun, 2017 [facility] [address] [facility] [id number] [address] [place] [phone] 06 Jun, 2017 Tonsillitis J03.90 [facility] [address] [facility] [id number] [address] [place] [phone] 05 Jun, 2017 [facility] [address] [facility] [id number] [address] [place] [phone] 03 Jun, 2017 Acute non-recurrent maxillar y sinusitis J01.00 [facility] [address] [place] [id number] [address] [place] [phone] Jun, [facility] [address] [place] [id number] [place] [phone] May, [facility] [address] [place] [id number] [address] [place] [phone] May, [place] [address] [phone] May, GERD (gastroesophageal reflu x disease) K21.9 [place] [address] [place] [id number] [place] [phone] May, Migraine without aura and wi thout status migrainosus, not intractable G43.009 [place] [address] [phone] May, [place] [address] [address] May, [facility] [address] [phone] May, Panlobular emphysema J43.1 a nd Acute non-recurrent maxillary sinusitis J01.00 [place] [address] [address] May, Bipolar 1 disorder, depresse d, moderate F31.32 ; Panic disorder with agoraphobia F40.01 and Akathisia G25.71 [facility] [id number] [place] [phone] Apr, [place] [address] [id number] Apr, [place] [address] [place] [id number] [place] [phone] Apr, Acute non-recurrent maxillar y sinusitis J01.00 [place] [address] [address] Apr, Panlobular emphysema J43.1 [facility] [address] [id number] [address] [place] [phone] Apr, [facility] [address] [id number] [address] [place] [phone] 04 Apr, 2017 Exudative tonsillitis J03.90 and Sore throat J02.9 [facility] [address] [id number] [address] [place] [phone] 17 Mar, 2017 [facility] [address] [facility] [id number] [address] [place] [phone] 15 Mar, 2017 Acute non-recurrent maxillar y sinusitis J01.00 [place] [address] [facility] [id number] [address] [place] [phone] Mar, [facility] [address] [facility] [id number] [address] [place] [phone] Mar, Panlobular emphysema J43.1 a nd Diabetes E11.9 [facility] [address] [facility] [id number] [address] [place] [phone] Mar, [facility] [address] [facility] [id number] [address] [place] [phone] Feb, Wheezing R06.2 and Acute rec urrent pansinusitis J01.41 [facility] [address] [facility] [id number] [address] [place] [phone] Feb, [facility] [address] [facility] [id number] [address] [place] [phone] Feb, Acute non-recurrent maxillar y sinusitis J01.00 [facility] [address] [facility] [id number] [address] [place] [phone] Feb, Chronic obstructive pulmonar y disease, unspecified J44.9 [facility] [address] [facility] [id number] [address] [place] [phone] Feb, Hypoxemia R09.02 and Chronic obstructive pulmonary disease, unspecified J44.9 [facility] [address] [facility] [id number] [address] [place] [phone] 28 Jan, 2017 Bipolar 1 disorder, depresse d, moderate F31.32 ; Panic disorder with agoraphobia F40.01 ; Chronic post-traumatic stress disorder (PTSD) F43.12 ; Diabetes E11.9 and Moderate persistent asthma without complication J45.40 [place] [address] [id number] [address] [place] [phone] Jan, [place] [address] [id number] [address] [place] [phone] Jan, Acute non-recurrent maxillar y sinusitis J01.00 [place] [address] [facility] [id number] [address] [place] [id number] Jan, [place] [address] [facility] [id number] [address] [place] [phone] Jan, [place] [address] [facility] [id number] [address] [place] [phone] Jan, Moderate persistent asthma w ithout complication J45.40 and Hypoxemia R09.02 [place] [address] [facility] [id number] [address] [place] [phone] Jan, Moderate persistent asthma w ithout complication J45.40 and Hypoxemia R09.02 [place] [address] [facility] [id number] [address] [place] [phone] Jan, [place] [address] [facility] [id number] [address] [place] [phone] Dec, Acute non-recurrent maxillar y sinusitis J01.00 [place] [address] [facility] [id number] [address] [place] [phone] Dec, Chronic obstructive pulmonar y disease, unspecified J44.9 [place] [address] [facility] [id number] [address] [place] [phone] Dec, [place] [address] [facility] [id number] [address] [place] [id number] Dec, Mild persistent asthma witho ut complication J45.30 and Other chronic pain G89.29 [facility] [address] [facility] [id number] [address] [place] [phone] Nov, [facility] [address] [facility] [id number] [address] [place] [phone] Nov, Acute non-recurrent maxillar y sinusitis J01.00 [facility] [address] [id number] [address] [place] [phone] Nov, [place] [address] [facility] [id number] [address] [place] [phone] Nov, [place] [address] [facility] [id number] [address] [place] [phone] Oct, [facility] [address] [facility] [id number] [address] [place] [phone] Oct, Bipolar 1 disorder, depresse d, partial remission F31.75 ; Panic disorder with agoraphobia F40.01 and Chronic post-traumatic stress disorder (PTSD) F43.12 [place] [address] [facility] [id number] [address] [place] [phone] Oct, Acute non-recurrent maxillar y sinusitis J01.00 [place] [address] [facility] [id number] [address] [place] [phone] Oct, [facility] [address] [facility] [id number] [address] [place] [phone] Oct, Diabetes E11.9 [place] [address] [facility] [id number] [address] [place] [address] September, Diabetes E11.9 [place] [address] [facility] [id number] [address] [place] [phone] September, Diabetes E11.9 and Sinus tac hycardia R00.0 [place] [address] [facility] [id number] [address] [place] [phone] September, [facility] [address] [facility] [id number] [address] [place] [phone] September, [facility] [address] [place] [id number] [address] [place] [phone] Aug, Diabetes E11.9 and Lumbago w ith sciatica, right side M54.41 [facility] [address] [place] [id number] [address] [place] [phone] Aug, [facility] [address] [place] [id number] [address] [place] [phone] Jul, Bipolar 1 disorder, depresse d, moderate F31.32 ; Panic disorder with agoraphobia F40.01 and Chronic post-traumatic stress disorder (PTSD) F43.12 [facility] [address] [place] [id number] [address] [place] [phone] Jul, Sore throat J02.9 [facility] [address] [place] [id number] [address] [place] [id number] Jul, [facility] [address] [place] [id number] [address] [place] [phone] Jul, [facility] [address] [place] [id number] [address] [place] [phone] Jul, [facility] [address] [place] [id number] [address] [place] [phone] Jul, [facility] [address] [facility] [id number] [address] [place] [phone] Jul, Sore throat J02.9 and Pharyn gitis, unspecified etiology J02.9 [facility] [address] [facility] [id number] [address] [place] [phone] Jun, [facility] [address] [place] [id number] [address] [place] [phone] Jun, Diabetes E11.9 [facility] [address] [id number] [address] [place] [phone] Jun, [facility] [address] [id number] [address] [place] [phone] Jun, [facility] [address] [id number] [address] [place] [phone] Jun, [facility] [address] [id number] [address] [place] [phone] Jun, [facility] [address] [id number] [address] [place] [phone] Jun, [facility] [address] [id number] [address] [place] [phone] Jun, [facility] [address] [id number] [address] [place] [phone] Jun, [facility] [address] [id number] [address] [place] [phone] Jun, [facility] [address] [id number] [address] [place] [phone] May, Diabetes E11.9 ; Other chron ic pain G89.29 ; Acute recurrent maxillary sinusitis J01.01 ; Bipolar I disorder with depression F31.9 and Anxiety disorder, unspecified F41.9 [facility] [address] [id number] [address] [place] [phone] May, [facility] [address] [id number] [address] [place] [phone] May, Diabetes E11.9 ; Bipolar I d isorder with depression F31.9 ; Anxiety disorder, unspecified F41.9 ; Other chronic pain G89.29 and Acute recurrent maxillary sinusitis J01.01 [facility] [address] [id number] [address] [place] [address] May, [facility] [address] [facility] [id number] [address] [place] [address] May, Attention deficit hyperactiv ity disorder (ADHD), predominantly inattentive type F90.0 [facility] [address] [facility] [id number] [address] [place] [phone] May, [facility] [address] [facility] [id number] [address] [place] [address] Apr, Attention deficit hyperactiv ity disorder (ADHD), predominantly inattentive type F90.0 and Non-seasonal allergic rhinitis due to other allergic trigger J30.89 [facility] [address] [id number] [address] [place] [phone] Apr, Bipolar 1 disorder, depresse d, moderate F31.32 ; Panic disorder with agoraphobia F40.01 and Chronic post-traumatic stress disorder (PTSD) F43.12 [place] [address] [place] [id number] [address] [place] [phone] Apr, Dental examination Z01.20 [facility] [address] [facility] [id number] [address] [place] [address] Mar, [facility] [address] [id number] [address] [place] [phone] Mar, [facility] [place] [address] [place] [id number] [address] [place] [phone] Mar, Bipolar I disorder with depr ession F31.9 and Anxiety disorder, unspecified F41.9 [place] [address] [facility] [id number] [address] [place] [phone] 08 Mar, 2016 Panic disorder with agorapho syd F40.01 ; Bipolar 1 disorder, depressed, moderate F31.32 and Chronic post-traumatic stress disorder (PTSD) F43.12 [place] [address] [facility] [id number] [address] [place] [phone] 04 Mar, 2016 [place] [address] [facility] [id number] [address] [place] [phone] 02 Mar, 2016 Dental caries K02.9 [facility] [address] [place] [id number] [address] [place] [phone] 24 Feb, 2016 Lumbago with sciatica, left side M54.42 ; Lumbago with sciatica, right side M54.41 and Other chronic pain G89.29 [facility] [address] [place] [id number] [address] [place] [phone] 17 Feb, 2016 [place] [address] [address] 14 Feb, 2016 [facility] [address] [address] 13 Feb, 2016 Bipolar I disorder with depr ession F31.9 ; PTSD (post-traumatic stress disorder) F43.10 and Mood disorder F39 [place] [address] [place] [id number] [place] [address] Feb, [facility] [address] [address] Feb, Dental examination Z01.20 [place] [facility] [address] [address] Feb, [facility] [address] [place] [id number] [place] [address] Feb, Acute bronchitis, unspecifie d organism J20.9 [place] [address] [place] [id number] [address] [place] [phone] Jan, Mood disorder F39 ; Migraine without aura and without status migrainosus, not intractable G43.009 ; Irritable bowel syndrome, unspecified type K58.9 ; Diabetes E11.9 and Encounter for immunization Z23 [place] [address] [place] [id number] [place] [address] 15 Jan, 2016 [facility] [address] [place] [id number] [address] [place] [phone] 06 Jan, 2016 [facility] [address] [address] Jan, [facility] [address] [id number] [address] [place] [phone] Jan, [facility] [address] [facility] [id number] [address] [place] [phone] Jan, [facility] [address] [facility] [id number] [address] [place] [phone] Dec, Bipolar I disorder with depr ession F31.9 ; PTSD (post-traumatic stress disorder) F43.10 and Panic disorder with agoraphobia F40.01 [facility] [address] [facility] [id number] [address] [place] [phone] Dec, Chronic obstructive pulmonar y disease, unspecified COPD type J44.9 ; Tremor R25.1 and Anxiety F41.9 [facility] [address] [facility] [id number] [address] [place] [phone] Dec, [facility] [address] [facility] [id number] [address] [place] [address] Nov, Tremors of nervous system R2 5.1 and Cramping of feet R25.2 [facility] [address] [facility] [id number] [address] [place] [phone] Nov, [facility] [address] [facility] [id number] [address] [place] [phone] Nov, [facility] [address] [facility] [id number] [address] [place] [phone] Oct, Chronic obstructive pulmonar y disease, unspecified J44.9 [facility] [address] [facility] [id number] [address] [place] [phone] Oct, [facility] [address] [facility] [id number] [address] [place] [address] Oct, Tremor R25.1 [facility] [address] [facility] [id number] [address] [place] [phone] Oct, Bipolar I disorder with depr ession F31.9 ; Diabetes E11.9 ; PTSD (post-traumatic stress disorder) F43.10 and Panic disorder with agoraphobia F40.01 [facility] [address] [facility] [id number] [address] [place] [phone] Oct, Mood disorder F39 [facility] [address] [facility] [id number] [address] [place] [phone] September, [facility] [address] [facility] [id number] [address] [place] [phone] September, Diabetes E11.9 ; Bipolar I d isorder with depression F31.9 ; PTSD (post-traumatic stress disorder) F43.10 and Panic disorder with agoraphobia F40.01 [place] [address] [facility] [id number] [address] [place] [phone] September, Mood disorder F39 ; Schizoaf fective disorder, unspecified type F25.9 ; Arthritis M19.90 ; Tremor R25.1 ; Acute non-recurrent frontal sinusitis J01.10 and Blood in stool K92.1 [place] [address] [facility] [id number] [address] [place] [phone] September, [facility] [address] [facility] [id number] [address] [place] [phone] September, Chronic obstructive pulmonar y disease, unspecified J44.9 [place] [address] [facility] [id number] [address] [place] [address] September, Diabetes E11.9 [facility] [address] [facility] [id number] [address] [place] [phone] Aug, Other bipolar disorder F31.8 9 and Anxiety disorder, unspecified F41.9 [place] [address] [facility] [id number] [address] [place] [phone] Aug, [place] [address] [facility] [id number] [address] [place] [phone] Aug, Diabetes E11.9 [facility] [address] [id number] [address] [place] [phone] 18 Aug, 2015 [facility] [address] [id number] [address] [place] [phone] 14 Aug, 2015 Diabetes E11.9 ; Fatigue R53 .83 and Dizziness R42 [facility] [address] [id number] [address] [place] [phone] Aug, Other bipolar disorder F31.8 9 [facility] [address] [id number] [address] [place] [phone] Aug, Generalized anxiety disorder F41.1 [facility] [address] [id number] [address] [place] [phone] Aug, Other bipolar disorder F31.8 9 and Anxiety disorder, unspecified F41.9 [facility] [address] [id number] [address] [place] [phone] Aug, [facility] [address] [id number] [address] [place] [phone] Jul, [facility] [address] [id number] [address] [place] [phone] 24 Jul, 2015 [facility] [address] [id number] [address] [place] [address] Jul, Bronchitis J40 [facility] [address] [id number] [address] [place] [phone] Jul, Anxiety disorder F41.9 [facility] [address] [id number] [address] [place] [phone] Jul, Other bipolar disorder F31.8 9 and Anxiety disorder, unspecified F41.9 [facility] [address] [id number] [address] [place] [phone] 18 Jul, 2015 Other bipolar disorder F31.8 9 and Fibromyalgia M79.7 [facility] [address] [id number] [address] [place] [phone] 10 Jul, 2015 [facility] [address] [place] [id number] [address] [place] [phone] Jul, [facility] [address] [address] Jul, [facility] [address] [place] [id number] [place] [address] Jul, Other bipolar disorder F31.8 9 and Anxiety disorder, unspecified F41.9 [facility] [address] [place] [id number] [place] [address] Jun, GERD (gastroesophageal reflu x disease) K21.9 [facility] [address] [phone] Jun, [facility] [address] [address] May, [facility] [address] [address] May, Diabetes E11.9 ; Back pain M 54.9 ; GERD (gastroesophageal reflux disease) K21.9 ; Hypertension I10 and Peripheral neuropathy G62.9 [facility] [address] [address] Mar, [facility] [address] [address] Mar, [facility] [address] [address] Mar, Acute sinusitis J01.90 and O titis media, left H66.92 [facility] [address] [place] [id number] [address] [place] [phone] Feb, [facility] [address] [address] Feb, [facility] [address] [address] Feb, [facility] [address] [place] [id number] [address] [place] [phone] Feb, [facility] [address] [facility] [id number] [address] [place] [address] Jan, [facility] [address] [facility] [id number] [address] [place] [phone] Jan, Diabetes 250.00 and Back higinio n 724.5 [facility] [address] [facility] [id number] [address] [place] [phone] Jan, [facility] [address] [facility] [id number] [address] [place] [address] Dec, Diabetes 250.00 ; Benign ess ential hypertension 401.1 and Allergic rhinitis 477.9 [facility] [address] [place] [id number] [address] [place] [phone] Dec, [facility] [address] [place] [id number] [address] [place] [phone] Dec, [facility] [address] [place] [id number] [address] [place] [phone] Dec, Psychosis 298.9 [facility] [address] [place] [id number] [address] [place] [phone] Dec, Medication side effect 995.2 0 and Generalized anxiety disorder 300.02 [facility] [address] [place] [id number] [address] [place] [phone] Dec, Acquired cognitive dysfuncti on 294.9 [facility] [address] [facility] [id number] [address] [place] [phone] Dec, [facility] [address] [place] [id number] [address] [place] [phone] Dec, Unspecified myalgia and myos itis 729.1 and Generalized anxiety disorder 300.02 [facility] [address] [place] [id number] [address] [place] [phone] Nov, [facility] [address] [place] [id number] [address] [place] [phone] Nov, [facility] [address] [id number] [address] [place] [phone] Nov, [facility] [address] [facility] [id number] [address] [place] [phone] Nov, Upper respiratory infection 465.9 and Chronic airway obstruction, not elsewhere classified 496 [facility] [address] [id number] [address] [place] [phone] Nov, Hyponatremia 276.1 [facility] [address] [id number] [address] [place] [phone] Oct, [facility] [address] [facility] [id number] [address] [place] [phone] Oct, [facility] [address] [facility] [id number] [address] [place] [phone] Oct, [facility] [address] [id number] [address] [place] [phone] Oct, [facility] [address] [id number] [address] [place] [phone] Oct, Hyponatremia 276.1 [facility] [address] [facility] [id number] [address] [place] [phone] Oct, [facility] [address] [facility] [id number] [address] [place] [phone] Oct, [facility] [address] [facility] [id number] [address] [place] [phone] Oct, Generalized anxiety disorder 300.02 [facility] [address] [id number] [address] [place] [phone] Oct, Generalized anxiety disorder 300.02 and Diabetes 250.00 [facility] [address] [facility] [id number] [address] [place] [phone] 14 Aug, 2014 [facility] [address] [facility] [id number] [address] [place] [phone] Aug, [facility] [address] [id number] [address] [place] [address], [place] [address] Jul, [facility] [address] [id number] [address] [place] [address], [place] [address] Jul, [facility] [address] [id number] [address] [place] [address], [place] [address] Jun, [facility] [address] [id number] [address] [place] [address], [place] [address] Jun, [facility] [address] [id number] [address] [place] [address], [place] [address] Jun, [facility] [address] [id number] [address] [place] [address], [place] [address] Jun, [facility] [address] [id number] [address] [place] [address], [place] [address] Jun, [facility] [address] [id number] [address] [place] [address], [place] [address] May, [facility] [address] [id number] [address] [place] [address], [place] [address] May, [facility] [address] [id number] [address] [place] [address], [place] [address] Apr, [facility] [address] [id number] [address] [place] [address], [place] [address] Apr, [facility] [address] [id number] [address] [place] [address], [place] [address] 18 Apr, 2013 [facility] [address] [id number] [address] [place] [address], [place] [address] 18 Apr, 2013 [facility] [address] [id number] [address] [place] [address], [place] [address] Apr, [facility] [address] [id number] [address] [place] [address], [place] [address] Apr, [facility] [address] [id number] [address] [place] [address], [place] [address] Apr, [facility] [address] [id number] [address] [place] [address], [place] [address] Apr, [facility] [address] [id number] [address] [place] [address], [place] [address] Feb, [facility] [address] [id number] [address] [place] [address], [place] [address] Feb, [facility] [address] [id number] [address] [place] [address], [place] [address] Jan, [facility] [address] [id number] [address] [place] [address], [place] [address] Jan, [facility] [address] [id number] [address] [place] [address], [place] [address] Dec, [facility] [address] [id number] [address] [place] [address], [place] [address] Dec, [facility] [address] [id number] [address] [place] [address], [place] [address] Dec, [facility] [address] [id number] [address] [place] [address], [place] [address] Nov, [facility] [address] [id number] [address] [place] [address], [place] [address] Nov, [facility] [address] [id number] [address] [place] [address], [place] [address] Nov, [facility] [address] [id number] [address] [place] [address], [place] [address] Oct, [facility] [address] [id number] [address] [place] [address], [place] [address] Oct, [facility] [address] [id number] [address] [place] [address], [place] [address] Oct, [facility] [address] [id number] [address] [place] [address], [place] [address] September, [facility] [address] [id number] [address] [place] [address], [place] [address] September, [facility] [address] [id number] [address] [place] [address], [place] [address] September, [facility] [address] [id number] [address] [place] [address], [place] [address] Aug, [facility] [address] [id number] [address] [place] [address], [place] [address] Aug, [facility] [address] [id number] [address] [place] [address], [place] [address] Aug, [facility] [address] [id number] [address] [place] [address], [place] [address] 16 Aug, 2011 [facility] [address] [id number] [address] [place] [address], [place] [address] Jul, [facility] [address] [id number] [address] [place] [address], [place] [address] Jun, [facility] [address] [id number] [address] [place] [address], [place] [address] 14 Jun, 2011 [facility] [address] [id number] [address] [place] [address], [place] [address] Jun, [facility] [address] [id number] [address] [place] [address], [place] [address] Jun, [facility] [address] [id number] [address] [place] [address], [place] [address] Jun, [facility] [address] [id number] [address] [place] [address], [place] [address] May, [facility] [address] [id number] [address] [place] [address], [place] [address] May, [facility] [address] [id number] [address] [place] [address], [place] [address] May, [facility] [address] [id number] [address] [place] [address], [place] [address] 04 May, 2011 [facility] [address] [id number] [address] [place] [address], [place] [address] Apr, [facility] [address] [id number] [address] [place] [address], [place] [address] Apr, [facility] [address] [id number] [address] [place] [address], [place] [address] Apr, [facility] [address] [id number] [address] [place] [address], [place] [address] Mar, [facility] [address] [id number] [address] [place] [address], [place] [address] Mar, [facility] [address] [id number] [address] [place] [address], [place] [address] Mar, [facility] [address] [id number] [address] [place] [address], [place] [address] Feb, [facility] [address] [id number] [address] [place] [address], [place] [address] Feb, [facility] [address] [id number] [address] [place] [address], [place] [address] Feb, [facility] [address] [id number] [address] [place] [address], [place] [address] Nov, [facility] [address] [id number] [address] [place] [address], [place] [address] September, [facility] [address] [id number] [address] [place] [address], [place] [address] Aug, [facility] [address] [id number] [address] [place] [address], [place] [address] 14 Jul, 2010 [facility] [address] [id number] [address] [place] [address], [place] [address] May, [facility] [address] [id number] [address] [place] [address], [place] [address] Apr, [facility] [address] [facility] [id number] [address] [place] [id number] Apr, [facility] [address] [facility] [id number] [address] [place] [id number] Apr, [facility] [address] [facility] [id number] [address] [place] [id number] Apr, [facility] [address] [facility] [id number] [address] [place] [id number] Apr, IMMUNIZATIONS No Known Immunizations SOCIAL HISTORY Never Assessed REASON FOR VISIT adderall 09/14/2017 PLAN OF CARE VITAL SIGNS MEDICATIONS Medication Instructions Dosage Frequency Start Date End Date Duration S samantha Adderall XR 20 mg Orally Once a day for depression 1 capsule in the morning September, 28 days Active RESULTS No Results PROCEDURES [...]
--- OUTSIDE RECORDS SUMMARY | 2019-07-17 11:07 | XMS REPORT ---
Author Author Sujey WILLS Organization [facility] Address [address] [place] [address] Care Team Providers Care Drug Worker Name Role Phone JOHANNGISELEYVON Unavailable PROBLEMS Type Condition ICD9-CM Code LWB92-EL Code Onset Dates Condition S tatus SNOMED Code Problem Back pain M54.9 Active 501860876 Problem Diabetes E11.9 Active 50726505 Problem GERD (gastroesophageal reflux disease) K21.9 Active 417999855 Problem Hypertension I10 Active 2679598 3 Problem Anxiety disorder, unspecified F41.9 Active 284433535 Problem Other bipolar disorder F31.89 Active 88085604 Problem Fibromyalgia M79.7 Active 9486194 7 Problem Panic disorder with agoraphobia F40.01 Active 65015586 Problem Panlobular emphysema J43.1 Active 6705228 Problem Chronic obstructive pulmonary disease, unspecified J44.9 Active 57305591 Problem Akathisia G25.71 Active 406238024 Problem Lumbago with sciatica, left side M54.42 Active 008382769 Problem Migraine without aura and without status migrain osus, not intractable G43.009 Active 232669452 Problem Fibrocystic disease of right breast N60.11 Active 87155005 Problem Fibrocystic disease of left breast N60.12 Active 71353782 Problem Slow transit constipation K59.01 Acti ve 94608426 Problem Essential tremor G25.0 Active 609 835015 Problem Bipolar 1 disorder, depressed, moderate F31.32 Active 24895345 Problem Other chronic pain G89.29 Active 8 4739164 Problem Lumbago with sciatica, right side M54.41 Active 144062942 Problem Irritable bowel syndrome with constipation K58.1 Active 560946482 Problem Arthritis M19.90 Active 3638556 Problem Schizoaffective disorder, bipolar type F25.0 Active 34380937 Problem Irritable bowel syndrome with both constipation and diarrh ea K58.2 Active 37019991 Problem Attention deficit hyperactiv ity disorder (ADHD), predominantly inattentive type F90.0 Active 88323744 Problem Bipolar I disorder with depression F31.9 Active 04531117 Problem Chronic post-traumatic stress disorder (PTSD) F43. 12 Active 645482728 Problem Bipolar affective disorder, remission status unspecified F31.9 Active 99450746 Problem Mild persistent asthma without complication J45.30 Active 472493220 Problem Moderate persistent asthma without complication J4 5.40 Active 907496666 Problem Acute non-recurrent maxillary sinusitis J01.00 Active 79134380 Problem Bipolar 1 disorder, depressed, partial remission F 31.75 Active 45326506 ALLERGIES No Information ENCOUNTERS Encounter Location Date Diagnosis [place] [address] [facility] [id number] [address] [place] [id number] Mar, [place] [address] [facility] [id number] [address] [place] [id number] Dec, [place] [address] [place] [id number] [address] [place] [id number] Nov, Bipolar 1 disorder, depresse d, partial remission F31.75 and Panic disorder with agoraphobia F40.01 [place] [address] [facility] [id number] [address] [place] [address] Nov, Panlobular emphysema J43.1 [facility] [address] [facility] [id number] [address] [place] [id number] Nov, Cerebrovascular accident (CV A) due to occlusion of right cerebellar artery I63.541 and Acute non-recurrent maxillary sinusitis J01.00 [facility] [address] [facility] [id number] [address] [place] [address] Nov, Panlobular emphysema J43.1 [facility] [address] [facility] [id number] [address] [place] [id number] Nov, [facility] [address] [facility] [id number] [address] [place] [id number] Nov, [facility] [address] [facility] [id number] [address] [place] [id number] Nov, [facility] [address] [id number] [address] [place] [id number] Nov, [facility] [address] [id number] [address] [place] [id number] Nov, [facility] [address] [facility] [id number] [address] [place] [id number] Nov, [facility] [address] [id number] [address] [place] [id number] Nov, [facility] [address] [facility] [id number] [address] [place] [id number] Nov, Mild persistent asthma witho ut complication J45.30 and Irritable bowel syndrome with both constipation and diarrhea K58.2 [facility] [address] [facility] [id number] [address] [place] [id number] Nov, [facility] [address] [facility] [id number] [address] [place] [id number] Oct, [facility] [address] [facility] [id number] [address] [place] [id number] Oct, [facility] [address] [facility] [id number] [address] [place] [id number] Oct, Type 2 diabetes mellitus wit h diabetic neuropathy, unspecified whether long-term insulin use E11.40 ; Diabetes E11.9 ; Slow transit constipation K59.01 ; Edema of both legs R60.0 and Dysfunction of right eustachian tube H69.81 [facility] [address] [facility] [id number] [address] [place] [id number] Oct, Frequent headaches R51 [facility] [address] [facility] [id number] [address] [place] [id number] Oct, [facility] [address] [facility] [id number] [address] [place] [phone] Oct, [facility] [address] [facility] [id number] [address] [place] [id number] Oct, [facility] [address] [facility] [id number] [address] [place] [id number] Oct, [facility] [address] [facility] [id number] [address] [place] [id number] Oct, [facility] [address] [facility] [id number] [address] [place] [id number] Oct, [facility] [address] [facility] [id number] [address] [place] [id number] Oct, [facility] [address] [facility] [id number] [address] [place] [id number] Oct, [facility] [address] [facility] [id number] [address] [place] [id number] September, Frequent headaches R51 [facility] [address] [facility] [id number] [address] [place] [id number] September, Bilateral otitis media with effusion H65.93 ; Dizziness R42 and Essential tremor G25.0 [facility] [address] [facility] [id number] [address] [place] [address] September, Chronic obstructive pulmonar y disease, unspecified COPD type J44.9 [facility] [address] [facility] [id number] [address] [place] [id number] September, Chronic obstructive pulmonar y disease, unspecified COPD type J44.9 [facility] [address] [facility] [id number] [address] [place] [id number] September, Migraine without aura and wi thout status migrainosus, not intractable G43.009 [facility] [address] [facility] [id number] [address] [place] [id number] September, [facility] [address] [facility] [id number] [address] [place] [id number] September, [facility] [address] [facility] [id number] [address] [place] [id number] September, [place] [address] [place] [id number] [address] [place] [id number] September, Frequent headaches R51 [place] [address] [place] [id number] [address] [place] [address] Aug, [place] [address] [address] Aug, Breast mass, right N63.10 [place] [address] [address] Aug, Breast lump N63.0 [place] [address] [id number] Aug, [place] [address] [address] Aug, Bipolar affective disorder, remission status unspecified F31.9 and Diabetes E11.9 [place] [address] [id number] Aug, Diabetes E11.9 ; Schizoaffec tive disorder, bipolar type F25.0 ; Pharyngitis due to other organism J02.8 ; Panlobular emphysema J43.1 and Irritable bowel syndrome with both constipation and diarrhea K58.2 [place] [address] [address] Aug, Abnormal mammogram R92.8 [place] [id number] [place] [address] Aug, [place] [address] [id number] Aug, Bipolar 1 disorder, depresse d, moderate F31.32 ; Panic disorder with agoraphobia F40.01 and Chronic post-traumatic stress disorder (PTSD) F43.12 [place] [address] [place] [id number] [address] [place] [id number] Aug, [place] [address] [place] [id number] [address] [place] [id number] Aug, [facility] [address] [facility] [id number] [address] [place] [id number] Aug, [facility] [address] [facility] [id number] [address] [place] [id number] Jul, [facility] [address] [facility] [id number] [address] [place] [id number] Jul, Mild persistent asthma witho ut complication J45.30 [facility] [address] [facility] [id number] [address] [place] [id number] 19 Jul, 2017 Mild persistent asthma witho ut complication J45.30 [facility] [address] [facility] [id number] [address] [place] [id number] 15 Jul, 2017 Bipolar affective disorder, remission status unspecified F31.9 ; Diabetes E11.9 and Irritable bowel syndrome with constipation K58.1 [facility] [address] [facility] [id number] [address] [place] [id number] Jul, [facility] [address] [facility] [id number] [address] [place] [id number] Jul, [place] [address] [facility] [id number] [address] [place] [id number] Jul, Frequent headaches R51 [place] [address] [facility] [id number] [address] [place] [id number] Jul, [facility] [address] [facility] [id number] [address] [place] [id number] Jul, [facility] [address] [facility] [id number] [address] [place] [id number] Jul, [place] [address] [facility] [id number] [address] [place] [id number] Jul, Frequent headaches R51 ; Fib rocystic disease of left breast N60.12 ; Fibrocystic disease of right breast N60.11 and Diabetes E11.9 [place] [address] [facility] [id number] [address] [place] [id number] 02 Jul, 2017 [facility] [address] [facility] [id number] [address] [place] [id number] Jul, [facility] [address] [facility] [id number] [address] [place] [id number] 21 Jun, 2017 Exudative tonsillitis J03.90 [facility] [address] [facility] [id number] [address] [place] [id number] 20 Jun, 2017 [facility] [address] [facility] [id number] [address] [place] [id number] 19 Jun, 2017 [facility] [address] [facility] [id number] [address] [place] [id number] 15 Jun, 2017 Mild persistent asthma witho ut complication J45.30 ; Chronic obstructive pulmonary disease, unspecified COPD type J44.9 and Exudative tonsillitis J03.90 [facility] [address] [facility] [id number] [address] [place] [id number] 13 Jun, 2017 Encounter for immunization Z 23 [facility] [address] [facility] [id number] [address] [place] [id number] 12 Jun, 2017 [facility] [address] [facility] [id number] [address] [place] [id number] 12 Jun, 2017 [facility] [address] [facility] [id number] [address] [place] [id number] 09 Jun, 2017 [facility] [address] [facility] [id number] [address] [place] [id number] 06 Jun, 2017 Tonsillitis J03.90 [facility] [address] [facility] [id number] [address] [place] [id number] 05 Jun, 2017 [facility] [address] [facility] [id number] [address] [place] [id number] 03 Jun, 2017 Acute non-recurrent maxillar y sinusitis J01.00 [facility] [address] [place] [id number] [address] [place] [id number] Jun, [facility] [address] [place] [id number] [place] [id number] May, [facility] [address] [place] [id number] [address] [place] [address] May, [place] [address] [id number] May, GERD (gastroesophageal reflu x disease) K21.9 [place] [address] [place] [id number] [place] [address] May, Migraine without aura and wi thout status migrainosus, not intractable G43.009 [place] [address] [address] May, [place] [address] [address] May, [facility] [address] [address] May, Panlobular emphysema J43.1 a nd Acute non-recurrent maxillary sinusitis J01.00 [place] [address] [address] May, Bipolar 1 disorder, depresse d, moderate F31.32 ; Panic disorder with agoraphobia F40.01 and Akathisia G25.71 [facility] [id number] [place] [address] Apr, [place] [address] [address] Apr, [place] [address] [place] [id number] [place] [address] Apr, Acute non-recurrent maxillar y sinusitis J01.00 [place] [address] [id number] Apr, Panlobular emphysema J43.1 [facility] [address] [id number] [address] [place] [id number] Apr, [facility] [address] [id number] [address] [place] [id number] 04 Apr, 2017 Exudative tonsillitis J03.90 and Sore throat J02.9 [facility] [address] [id number] [address] [place] [id number] 17 Mar, 2017 [facility] [address] [facility] [id number] [address] [place] [id number] 15 Mar, 2017 Acute non-recurrent maxillar y sinusitis J01.00 [place] [address] [facility] [id number] [address] [place] [id number] Mar, [facility] [address] [facility] [id number] [address] [place] [id number] Mar, Panlobular emphysema J43.1 a nd Diabetes E11.9 [facility] [address] [facility] [id number] [address] [place] [address] Mar, [facility] [address] [facility] [id number] [address] [place] [id number] Feb, Wheezing R06.2 and Acute rec urrent pansinusitis J01.41 [facility] [address] [facility] [id number] [address] [place] [id number] Feb, [facility] [address] [facility] [id number] [address] [place] [id number] Feb, Acute non-recurrent maxillar y sinusitis J01.00 [facility] [address] [facility] [id number] [address] [place] [id number] Feb, Chronic obstructive pulmonar y disease, unspecified J44.9 [facility] [address] [facility] [id number] [address] [place] [id number] Feb, Hypoxemia R09.02 and Chronic obstructive pulmonary disease, unspecified J44.9 [facility] [address] [facility] [id number] [address] [place] [id number] 28 Jan, 2017 Bipolar 1 disorder, depresse d, moderate F31.32 ; Panic disorder with agoraphobia F40.01 ; Chronic post-traumatic stress disorder (PTSD) F43.12 ; Diabetes E11.9 and Moderate persistent asthma without complication J45.40 [place] [address] [id number] [address] [place] [id number] Jan, [place] [address] [id number] [address] [place] [id number] Jan, Acute non-recurrent maxillar y sinusitis J01.00 [place] [address] [facility] [id number] [address] [place] [id number] Jan, [place] [address] [facility] [id number] [address] [place] [id number] Jan, [place] [address] [facility] [id number] [address] [place] [id number] Jan, Moderate persistent asthma w ithout complication J45.40 and Hypoxemia R09.02 [place] [address] [facility] [id number] [address] [place] [id number] Jan, Moderate persistent asthma w ithout complication J45.40 and Hypoxemia R09.02 [place] [address] [facility] [id number] [address] [place] [address] Jan, [place] [address] [facility] [id number] [address] [place] [address] Dec, Acute non-recurrent maxillar y sinusitis J01.00 [place] [address] [facility] [id number] [address] [place] [id number] Dec, Chronic obstructive pulmonar y disease, unspecified J44.9 [place] [address] [facility] [id number] [address] [place] [id number] Dec, [place] [address] [facility] [id number] [address] [place] [id number] Dec, Mild persistent asthma witho ut complication J45.30 and Other chronic pain G89.29 [facility] [address] [facility] [id number] [address] [place] [address] Nov, [facility] [address] [facility] [id number] [address] [place] [id number] Nov, Acute non-recurrent maxillar y sinusitis J01.00 [facility] [address] [id number] [address] [place] [id number] Nov, [place] [address] [facility] [id number] [address] [place] [id number] Nov, [place] [address] [facility] [id number] [address] [place] [id number] Oct, [facility] [address] [facility] [id number] [address] [place] [id number] Oct, Bipolar 1 disorder, depresse d, partial remission F31.75 ; Panic disorder with agoraphobia F40.01 and Chronic post-traumatic stress disorder (PTSD) F43.12 [place] [address] [facility] [id number] [address] [place] [address] Oct, Acute non-recurrent maxillar y sinusitis J01.00 [place] [address] [facility] [id number] [address] [place] [address] Oct, [facility] [address] [facility] [id number] [address] [place] [id number] Oct, Diabetes E11.9 [place] [address] [facility] [id number] [address] [place] [address] September, Diabetes E11.9 [place] [address] [facility] [id number] [address] [place] [address] September, Diabetes E11.9 and Sinus tac hycardia R00.0 [place] [address] [facility] [id number] [address] [place] [id number] September, [facility] [address] [facility] [id number] [address] [place] [id number] September, [facility] [address] [place] [id number] [address] [place] [id number] Aug, Diabetes E11.9 and Lumbago w ith sciatica, right side M54.41 [facility] [address] [place] [id number] [address] [place] [id number] Aug, [facility] [address] [place] [id number] [address] [place] [id number] Jul, Bipolar 1 disorder, depresse d, moderate F31.32 ; Panic disorder with agoraphobia F40.01 and Chronic post-traumatic stress disorder (PTSD) F43.12 [facility] [address] [place] [id number] [address] [place] [id number] Jul, Sore throat J02.9 [facility] [address] [place] [id number] [address] [place] [id number] Jul, [facility] [address] [place] [id number] [address] [place] [id number] Jul, [facility] [address] [place] [id number] [address] [place] [id number] Jul, [facility] [address] [place] [id number] [address] [place] [id number] Jul, [facility] [address] [facility] [id number] [address] [place] [id number] Jul, Sore throat J02.9 and Pharyn gitis, unspecified etiology J02.9 [facility] [address] [facility] [id number] [address] [place] [id number] Jun, [facility] [address] [place] [id number] [address] [place] [id number] Jun, Diabetes E11.9 [facility] [address] [id number] [address] [place] [id number] Jun, [facility] [address] [id number] [address] [place] [id number] Jun, [facility] [address] [id number] [address] [place] [id number] Jun, [facility] [address] [id number] [address] [place] [id number] Jun, [facility] [address] [id number] [address] [place] [id number] Jun, [facility] [address] [id number] [address] [place] [id number] Jun, [facility] [address] [id number] [address] [place] [id number] Jun, [facility] [address] [id number] [address] [place] [id number] Jun, [facility] [address] [id number] [address] [place] [id number] May, Diabetes E11.9 ; Other chron ic pain G89.29 ; Acute recurrent maxillary sinusitis J01.01 ; Bipolar I disorder with depression F31.9 and Anxiety disorder, unspecified F41.9 [facility] [address] [id number] [address] [place] [id number] May, [facility] [address] [id number] [address] [place] [id number] May, Diabetes E11.9 ; Bipolar I d isorder with depression F31.9 ; Anxiety disorder, unspecified F41.9 ; Other chronic pain G89.29 and Acute recurrent maxillary sinusitis J01.01 [facility] [address] [id number] [address] [place] [id number] May, [facility] [address] [facility] [id number] [address] [place] [id number] May, Attention deficit hyperactiv ity disorder (ADHD), predominantly inattentive type F90.0 [facility] [address] [facility] [id number] [address] [place] [id number] May, [facility] [address] [facility] [id number] [address] [place] [id number] Apr, Attention deficit hyperactiv ity disorder (ADHD), predominantly inattentive type F90.0 and Non-seasonal allergic rhinitis due to other allergic trigger J30.89 [facility] [address] [id number] [address] [place] [id number] Apr, Bipolar 1 disorder, depresse d, moderate F31.32 ; Panic disorder with agoraphobia F40.01 and Chronic post-traumatic stress disorder (PTSD) F43.12 [place] [address] [place] [id number] [address] [place] [address] Apr, Dental examination Z01.20 [place] [address] [facility] [id number] [address] [place] [address] Mar, [place] [address] [id number] [address] [place] [address] Mar, [place] [address] [place] [id number] [address] [place] [address] Mar, Bipolar I disorder with depr ession F31.9 and Anxiety disorder, unspecified F41.9 [place] [address] [facility] [id number] [address] [place] [address] 08 Mar, 2016 Panic disorder with agorapho syd F40.01 ; Bipolar 1 disorder, depressed, moderate F31.32 and Chronic post-traumatic stress disorder (PTSD) F43.12 [place] [address] [facility] [id number] [address] [place] [address] 04 Mar, 2016 [place] [address] [facility] [id number] [address] [place] [address] 02 Mar, 2016 Dental caries K02.9 [place] [address] [place] [id number] [address] [place] [address] 24 Feb, 2016 Lumbago with sciatica, left side M54.42 ; Lumbago with sciatica, right side M54.41 and Other chronic pain G89.29 [facility] [address] [place] [id number] [address] [place] [address] 17 Feb, 2016 [place] [address] [address] 14 Feb, 2016 [facility] [address] [address] 13 Feb, 2016 Bipolar I disorder with depr ession F31.9 ; PTSD (post-traumatic stress disorder) F43.10 and Mood disorder F39 [place] [address] [place] [id number] [place] [address] Feb, [place] [address] [address] Feb, Dental examination Z01.20 [place] [address] [address] Feb, [facility] [address] [place] [id number] [place] [address] Feb, Acute bronchitis, unspecifie d organism J20.9 [place] [address] [place] [id number] [address] [place] [address] Jan, Mood disorder F39 ; Migraine without aura and without status migrainosus, not intractable G43.009 ; Irritable bowel syndrome, unspecified type K58.9 ; Diabetes E11.9 and Encounter for immunization Z23 [place] [address] [place] [id number] [place] [address] 15 Jan, 2016 [facility] [address] [place] [id number] [address] [place] [address] 06 Jan, 2016 [facility] [address] [address] Jan, [facility] [address] [id number] [address] [place] [address] Jan, [facility] [address] [facility] [id number] [address] [place] [address] Jan, [facility] [address] [facility] [id number] [address] [place] [address] Dec, Bipolar I disorder with depr ession F31.9 ; PTSD (post-traumatic stress disorder) F43.10 and Panic disorder with agoraphobia F40.01 [facility] [address] [facility] [id number] [address] [place] [address] Dec, Chronic obstructive pulmonar y disease, unspecified COPD type J44.9 ; Tremor R25.1 and Anxiety F41.9 [facility] [address] [facility] [id number] [address] [place] [address] Dec, [facility] [address] [facility] [id number] [address] [place] [address] Nov, Tremors of nervous system R2 5.1 and Cramping of feet R25.2 [facility] [address] [facility] [id number] [address] [place] [address] Nov, [facility] [address] [facility] [id number] [address] [place] [address] Nov, [facility] [address] [facility] [id number] [address] [place] [address] Oct, Chronic obstructive pulmonar y disease, unspecified J44.9 [facility] [address] [facility] [id number] [address] [place] [address] Oct, [facility] [address] [facility] [id number] [address] [place] [address] Oct, Tremor R25.1 [facility] [address] [facility] [id number] [address] [place] [address] Oct, Bipolar I disorder with depr ession F31.9 ; Diabetes E11.9 ; PTSD (post-traumatic stress disorder) F43.10 and Panic disorder with agoraphobia F40.01 [facility] [address] [facility] [id number] [address] [place] [address] Oct, Mood disorder F39 [facility] [address] [facility] [id number] [address] [place] [address] September, [facility] [address] [facility] [id number] [address] [place] [address] September, Diabetes E11.9 ; Bipolar I d isorder with depression F31.9 ; PTSD (post-traumatic stress disorder) F43.10 and Panic disorder with agoraphobia F40.01 [place] [address] [facility] [id number] [address] [place] [address] September, Mood disorder F39 ; Schizoaf fective disorder, unspecified type F25.9 ; Arthritis M19.90 ; Tremor R25.1 ; Acute non-recurrent frontal sinusitis J01.10 and Blood in stool K92.1 [place] [address] [facility] [id number] [address] [place] [address] September, [place] [address] [facility] [id number] [address] [place] [address] September, Chronic obstructive pulmonar y disease, unspecified J44.9 [place] [address] [facility] [id number] [address] [place] [address] September, Diabetes E11.9 [facility] [address] [facility] [id number] [address] [place] [address] Aug, Other bipolar disorder F31.8 9 and Anxiety disorder, unspecified F41.9 [place] [address] [facility] [id number] [address] [place] [address] Aug, [place] [address] [facility] [id number] [address] [place] [address] Aug, Diabetes E11.9 [place] [address] [id number] [address] [place] [address] 18 Aug, 2015 [facility] [address] [id number] [address] [place] [address] 14 Aug, 2015 Diabetes E11.9 ; Fatigue R53 .83 and Dizziness R42 [facility] [address] [id number] [address] [place] [address] Aug, Other bipolar disorder F31.8 9 [facility] [address] [id number] [address] [place] [address] Aug, Generalized anxiety disorder F41.1 [facility] [address] [id number] [address] [place] [address] Aug, Other bipolar disorder F31.8 9 and Anxiety disorder, unspecified F41.9 [facility] [address] [id number] [address] [place] [address] Aug, [facility] [address] [id number] [address] [place] [address] Jul, [facility] [address] [id number] [address] [place] [address] 24 Jul, 2015 [facility] [address] [id number] [address] [place] [address] Jul, Bronchitis J40 [facility] [address] [id number] [address] [place] [address] Jul, Anxiety disorder F41.9 [facility] [address] [id number] [address] [place] [address] Jul, Other bipolar disorder F31.8 9 and Anxiety disorder, unspecified F41.9 [facility] [address] [id number] [address] [place] [id number] 18 Jul, 2015 Other bipolar disorder F31.8 9 and Fibromyalgia M79.7 [facility] [address] [id number] [address] [place] [id number] 10 Jul, 2015 [facility] [address] [place] [id number] [address] [place] [address] Jul, [facility] [address] [address] Jul, [facility] [address] [place] [id number] [place] [address] Jul, Other bipolar disorder F31.8 9 and Anxiety disorder, unspecified F41.9 [facility] [address] [place] [id number] [place] [address] Jun, GERD (gastroesophageal reflu x disease) K21.9 [facility] [address] [address] Jun, [facility] [address] [address] May, [facility] [address] [address] May, Diabetes E11.9 ; Back pain M 54.9 ; GERD (gastroesophageal reflux disease) K21.9 ; Hypertension I10 and Peripheral neuropathy G62.9 [facility] [address] [address] Mar, [facility] [address] [address] Mar, [facility] [address] [address] Mar, Acute sinusitis J01.90 and O titis media, left H66.92 [facility] [address] [place] [id number] [address] [place] [address] Feb, [facility] [address] [address] Feb, [facility] [address] [address] Feb, [facility] [address] [place] [id number] [address] [place] [address] Feb, [facility] [address] [facility] [id number] [address] [place] [address] Jan, [facility] [address] [facility] [id number] [address] [place] [address] Jan, Diabetes 250.00 and Back higinio n 724.5 [facility] [address] [facility] [id number] [address] [place] [address] Jan, [facility] [address] [facility] [id number] [address] [place] [address] Dec, Diabetes 250.00 ; Benign ess ential hypertension 401.1 and Allergic rhinitis 477.9 [facility] [address] [place] [id number] [address] [place] [id number] Dec, [facility] [address] [place] [id number] [address] [place] [address] Dec, [facility] [address] [place] [id number] [address] [place] [address] Dec, Psychosis 298.9 [facility] [address] [place] [id number] [address] [place] [address] Dec, Medication side effect 995.2 0 and Generalized anxiety disorder 300.02 [facility] [address] [place] [id number] [address] [place] [address] Dec, Acquired cognitive dysfuncti on 294.9 [facility] [address] [facility] [id number] [address] [place] [address] Dec, [facility] [address] [place] [id number] [address] [place] [address] Dec, Unspecified myalgia and myos itis 729.1 and Generalized anxiety disorder 300.02 [facility] [address] [place] [id number] [address] [place] [address] Nov, [facility] [address] [place] [id number] [address] [place] [address] Nov, [facility] [address] [id number] [address] [place] [id number] Nov, [facility] [address] [facility] [id number] [address] [place] [address] Nov, Upper respiratory infection 465.9 and Chronic airway obstruction, not elsewhere classified 496 [facility] [address] [id number] [address] [place] [address] Nov, Hyponatremia 276.1 [facility] [address] [id number] [address] [place] [address] Oct, [facility] [address] [facility] [id number] [address] [place] [address] Oct, [facility] [address] [facility] [id number] [address] [place] [address] Oct, [facility] [address] [id number] [address] [place] [address] Oct, [facility] [address] [id number] [address] [place] [address] Oct, Hyponatremia 276.1 [facility] [address] [facility] [id number] [address] [place] [address] Oct, [facility] [address] [facility] [id number] [address] [place] [address] Oct, [facility] [address] [facility] [id number] [address] [place] [address] Oct, Generalized anxiety disorder 300.02 [facility] [address] [id number] [address] [place] [address] Oct, Generalized anxiety disorder 300.02 and Diabetes 250.00 [facility] [address] [facility] [id number] [address] [place] [address] 14 Aug, 2014 [facility] [address] [facility] [id number] [address] [place] [address] Aug, [facility] [address] [id number] [address] [place] [address], [place] [address] Jul, [facility] [address] [id number] [address] [place] [address], [place] [address] Jul, [facility] [address] [id number] [address] [place] [address], [place] [address] Jun, [facility] [address] [id number] [address] [place] [address], [place] [address] Jun, [facility] [address] [id number] [address] [place] [address], [place] [address] Jun, [facility] [address] [id number] [address] [place] [address], [place] [address] Jun, [facility] [address] [id number] [address] [place] [address], [place] [address] Jun, [facility] [address] [id number] [address] [place] [address], [place] [address] May, [facility] [address] [id number] [address] [place] [address], [place] [address] May, [facility] [address] [id number] [address] [place] [address], [place] [address] Apr, [facility] [address] [id number] [address] [place] [address], [place] [address] Apr, [facility] [address] [id number] [address] [place] [address], [place] [address] 18 Apr, 2013 [facility] [address] [id number] [address] [place] [address], [place] [address] 18 Apr, 2013 [facility] [address] [id number] [address] [place] [address], [place] [address] Apr, [facility] [address] [id number] [address] [place] [address], [place] [address] Apr, [facility] [address] [id number] [address] [place] [address], [place] [address] Apr, [facility] [address] [id number] [address] [place] [address], [place] [address] Apr, [facility] [address] [id number] [address] [place] [address], [place] [address] Feb, [facility] [address] [id number] [address] [place] [address], [place] [address] Feb, [facility] [address] [id number] [address] [place] [address], [place] [address] Jan, [facility] [address] [id number] [address] [place] [address], [place] [address] Jan, [facility] [address] [id number] [address] [place] [address], [place] [address] Dec, [facility] [address] [id number] [address] [place] [address], [place] [address] Dec, [facility] [address] [id number] [address] [place] [address], [place] [address] Dec, [facility] [address] [id number] [address] [place] [address], [place] [address] Nov, [facility] [address] [id number] [address] [place] [address], [place] [address] Nov, [facility] [address] [id number] [address] [place] [address], [place] [address] Nov, [facility] [address] [id number] [address] [place] [address], [place] [address] Oct, [facility] [address] [id number] [address] [place] [address], [place] [address] Oct, [facility] [address] [id number] [address] [place] [address], [place] [address] Oct, [facility] [address] [id number] [address] [place] [address], [place] [address] September, [facility] [address] [id number] [address] [place] [address], [place] [address] September, [facility] [address] [id number] [address] [place] [address], [place] [address] September, [facility] [address] [id number] [address] [place] [address], [place] [address] Aug, [facility] [address] [id number] [address] [place] [address], [place] [address] Aug, [facility] [address] [id number] [address] [place] [address], [place] [address] Aug, [facility] [address] [id number] [address] [place] [address], [place] [address] 16 Aug, 2011 [facility] [address] [id number] [address] [place] [address], [place] [address] Jul, [facility] [address] [id number] [address] [place] [address], [place] [address] Jun, [facility] [address] [id number] [address] [place] [address], [place] [address] 14 Jun, 2011 [facility] [address] [id number] [address] [place] [address], [place] [address] Jun, [facility] [address] [id number] [address] [place] [address], [place] [address] Jun, [facility] [address] [id number] [address] [place] [address], [place] [address] Jun, [facility] [address] [id number] [address] [place] [address], [place] [address] May, [facility] [address] [id number] [address] [place] [address], [place] [address] May, [facility] [address] [id number] [address] [place] [address], [place] [address] May, [facility] [address] [id number] [address] [place] [address], [place] [address] 04 May, 2011 [facility] [address] [id number] [address] [place] [address], [place] [address] Apr, [facility] [address] [id number] [address] [place] [address], [place] [address] Apr, [facility] [address] [id number] [address] [place] [address], [place] [address] Apr, [facility] [address] [id number] [address] [place] [address], [place] [address] Mar, [facility] [address] [id number] [address] [place] [address], [place] [address] Mar, [facility] [address] [id number] [address] [place] [address], [place] [address] Mar, [facility] [address] [id number] [address] [place] [address], [place] [address] Feb, [facility] [address] [id number] [address] [place] [address], [place] [address] Feb, [facility] [address] [id number] [address] [place] [address], [place] [address] Feb, [facility] [address] [id number] [address] [place] [address], [place] [address] Nov, [facility] [address] [id number] [address] [place] [address], [place] [address] September, [facility] [address] [id number] [address] [place] [address], [place] [address] Aug, [facility] [address] [id number] [address] [place] [address], [place] [id number] 14 Jul, 2010 [facility] [address] [id number] [address] [place] [address], [place] [address] May, [facility] [address] [id number] [address] [place] [address], [place] [id number] Apr, [facility] [address] [facility] [id number] [address] [place] [id number] Apr, [facility] [address] [facility] [id number] [address] [place] [id number] Apr, [facility] [address] [facility] [id number] [address] [place] [id number] Apr, [facility] [address] [facility] [id number] [address] [place] [id number] Apr, IMMUNIZATIONS No Known Immunizations SOCIAL HISTORY Never Assessed REASON FOR VISIT Refill request PLAN OF CARE VITAL SIGNS MEDICATIONS Unknown [...]
--- OUTSIDE RECORDS SUMMARY | 2019-07-17 11:07 | XMS REPORT ---
Author Author Sujey GANDHI Organization [facility] Address [address] [place] [address] Care Team Providers Care Mixer Foam Rubber Name Role Phone WHIT GANDHI Unavailable PROBLEMS Type Condition ICD9-CM Code QTQ33-RI Code Onset Dates Condition S tatus SNOMED Code Problem Back pain M54.9 Active 427825027 Problem Diabetes E11.9 Active 99048091 Problem GERD (gastroesophageal reflux disease) K21.9 Active 152326620 Problem Hypertension I10 Active 1038691 3 Problem Anxiety disorder, unspecified F41.9 Active 599530977 Problem Other bipolar disorder F31.89 Active 15031461 Problem Fibromyalgia M79.7 Active 0532128 7 Problem Panic disorder with agoraphobia F40.01 Active 81760663 Problem Panlobular emphysema J43.1 Active 6011516 Problem Chronic obstructive pulmonary disease, unspecified J44.9 Active 74065159 Problem Akathisia G25.71 Active 191187247 Problem Lumbago with sciatica, left side M54.42 Active 937542223 Problem Migraine without aura and without status migrain osus, not intractable G43.009 Active 175929675 Problem Fibrocystic disease of right breast N60.11 Active 62295989 Problem Fibrocystic disease of left breast N60.12 Active 40892383 Problem Slow transit constipation K59.01 Acti ve 10155666 Problem Essential tremor G25.0 Active 609 496867 Problem Bipolar 1 disorder, depressed, moderate F31.32 Active 45044016 Problem Other chronic pain G89.29 Active 8 3365866 Problem Lumbago with sciatica, right side M54.41 Active 015889465 Problem Irritable bowel syndrome with constipation K58.1 Active 576026986 Problem Arthritis M19.90 Active 6726665 Problem Schizoaffective disorder, bipolar type F25.0 Active 86461188 Problem Irritable bowel syndrome with both constipation and diarrh ea K58.2 Active 61278426 Problem Attention deficit hyperactiv ity disorder (ADHD), predominantly inattentive type F90.0 Active 13427860 Problem Bipolar I disorder with depression F31.9 Active 28371371 Problem Chronic post-traumatic stress disorder (PTSD) F43. 12 Active 673979841 Problem Bipolar affective disorder, remission status unspecified F31.9 Active 26846494 Problem Mild persistent asthma without complication J45.30 Active 007576676 Problem Moderate persistent asthma without complication J4 5.40 Active 603169997 Problem Acute non-recurrent maxillary sinusitis J01.00 Active 88593789 Problem Bipolar 1 disorder, depressed, partial remission F 31.75 Active 60883975 ALLERGIES No Information ENCOUNTERS Encounter Location Date Diagnosis [facility] [address] [facility] [id number] [address] [place] [phone] Mar, [facility] [address] [facility] [id number] [address] [place] [phone] Dec, [place] [address] [facility] [id number] [address] [place] [id number] Nov, Bipolar 1 disorder, depresse d, partial remission F31.75 and Panic disorder with agoraphobia F40.01 [facility] [address] [facility] [id number] [address] [place] [id number] Nov, Panlobular emphysema J43.1 [facility] [address] [facility] [id number] [address] [place] [phone] Nov, Cerebrovascular accident (CV A) due to occlusion of right cerebellar artery I63.541 and Acute non-recurrent maxillary sinusitis J01.00 [facility] [address] [facility] [id number] [address] [place] [id number] Nov, Panlobular emphysema J43.1 [facility] [address] [facility] [id number] [address] [place] [phone] Nov, [facility] [address] [facility] [id number] [address] [place] [phone] Nov, [facility] [address] [facility] [id number] [address] [place] [phone] Nov, [facility] [address] [facility] [id number] [address] [place] [phone] Nov, [facility] [address] [facility] [id number] [address] [place] [phone] Nov, [facility] [address] [facility] [id number] [address] [place] [phone] Nov, [facility] [address] [facility] [id number] [address] [place] [phone] Nov, [facility] [address] [facility] [id number] [address] [place] [phone] Nov, Mild persistent asthma witho ut complication J45.30 and Irritable bowel syndrome with both constipation and diarrhea K58.2 [facility] [address] [facility] [id number] [address] [place] [phone] Nov, [facility] [address] [facility] [id number] [address] [place] [phone] Oct, [facility] [address] [facility] [id number] [address] [place] [phone] Oct, [facility] [address] [facility] [id number] [address] [place] [id number] Oct, Type 2 diabetes mellitus wit h diabetic neuropathy, unspecified whether director long term care insulin use E11.40 ; Diabetes E11.9 ; Slow transit constipation K59.01 ; Edema of both legs R60.0 and Dysfunction of right eustachian tube H69.81 [facility] [address] [id number] [address] [place] [phone] Oct, Frequent headaches R51 [facility] [address] [facility] [id number] [address] [place] [phone] Oct, [facility] [address] [facility] [id number] [address] [place] [phone] Oct, [facility] [address] [facility] [id number] [address] [place] [phone] Oct, [facility] [address] [facility] [id number] [address] [place] [phone] Oct, [facility] [address] [facility] [id number] [address] [place] [phone] Oct, [facility] [address] [facility] [id number] [address] [place] [phone] Oct, [facility] [address] [facility] [id number] [address] [place] [phone] Oct, [facility] [address] [facility] [id number] [address] [place] [phone] Oct, [facility] [address] [facility] [id number] [address] [place] [phone] September, Frequent headaches R51 [facility] [address] [facility] [id number] [address] [place] [phone] September, Bilateral otitis media with effusion H65.93 ; Dizziness R42 and Essential tremor G25.0 [facility] [address] [facility] [id number] [address] [place] [phone] September, Chronic obstructive pulmonar y disease, unspecified COPD type J44.9 [facility] [address] [facility] [id number] [address] [place] [phone] September, Chronic obstructive pulmonar y disease, unspecified COPD type J44.9 [facility] [address] [facility] [id number] [address] [place] [phone] September, Migraine without aura and wi thout status migrainosus, not intractable G43.009 [facility] [address] [facility] [id number] [address] [place] [phone] September, [facility] [address] [facility] [id number] [address] [place] [phone] September, [facility] [address] [facility] [id number] [address] [place] [phone] September, [place] [address] [facility] [id number] [address] [place] [phone] September, Frequent headaches R51 [place] [address] [facility] [id number] [address] [place] [phone] Aug, [place] [address] [facility] [id number] [address] [place] [id number] Aug, Breast mass, right N63.10 [place] [address] [facility] [id number] [address] [place] [phone] Aug, Breast lump N63.0 [place] [address] [facility] [id number] [address] [place] [phone] Aug, [place] [address] [place] [id number] [place] [phone] Aug, Bipolar affective disorder, remission status unspecified F31.9 and Diabetes E11.9 [place] [address] [place] [id number] [address] [place] [phone] Aug, Diabetes E11.9 ; Schizoaffec tive disorder, bipolar type F25.0 ; Pharyngitis due to other organism J02.8 ; Panlobular emphysema J43.1 and Irritable bowel syndrome with both constipation and diarrhea K58.2 [place] [id number] [place] [phone] Aug, Abnormal mammogram R92.8 [place] [address] [place] [id number] [address] [place] [phone] Aug, [place] [address] [place] [id number] [address] [place] [id number] Aug, Bipolar 1 disorder, depresse d, moderate F31.32 ; Panic disorder with agoraphobia F40.01 and Chronic post-traumatic stress disorder (PTSD) F43.12 [place] [address] [place] [id number] [address] [place] [phone] Aug, [place] [address] [place] [id number] [address] [place] [phone] Aug, [facility] [address] [id number] [address] [place] [id number] Aug, [facility] [address] [facility] [id number] [address] [place] [phone] Jul, [facility] [address] [facility] [id number] [address] [place] [phone] Jul, Mild persistent asthma witho ut complication J45.30 [facility] [address] [id number] [address] [place] [id number] 19 Jul, 2017 Mild persistent asthma witho ut complication J45.30 [facility] [address] [facility] [id number] [address] [place] [id number] 15 Jul, 2017 Bipolar affective disorder, remission status unspecified F31.9 ; Diabetes E11.9 and Irritable bowel syndrome with constipation K58.1 [facility] [address] [facility] [id number] [address] [place] [phone] Jul, [facility] [address] [facility] [id number] [address] [place] [phone] Jul, [facility] [address] [facility] [id number] [address] [place] [phone] Jul, Frequent headaches R51 [facility] [address] [facility] [id number] [address] [place] [phone] Jul, [facility] [address] [facility] [id number] [address] [place] [phone] Jul, [facility] [address] [facility] [id number] [address] [place] [id number] Jul, [facility] [address] [facility] [id number] [address] [place] [id number] Jul, Frequent headaches R51 ; Fib rocystic disease of left breast N60.12 ; Fibrocystic disease of right breast N60.11 and Diabetes E11.9 [facility] [address] [facility] [id number] [address] [place] [phone] 02 Jul, 2017 [facility] [address] [facility] [id number] [address] [place] [id number] Jul, [facility] [address] [facility] [id number] [address] [place] [phone] 21 Jun, 2017 Exudative tonsillitis J03.90 [facility] [address] [facility] [id number] [address] [place] [id number] 20 Jun, 2017 [facility] [address] [facility] [id number] [address] [place] [phone] 19 Jun, 2017 [facility] [address] [phone] 15 Jun, 2017 Mild persistent asthma witho ut complication J45.30 ; Chronic obstructive pulmonary disease, unspecified COPD type J44.9 and Exudative tonsillitis J03.90 [facility] [id number] [place] [id number] 13 Jun, 2017 Encounter for immunization Z 23 [facility] [address] [place] [id number] [address] [place] [phone] 12 Jun, 2017 [facility] [address] [place] [id number] [address] [place] [phone] 12 Jun, 2017 [facility] [id number] [place] [phone] 09 Jun, 2017 [facility] [address] [facility] [id number] [address] [place] [id number] 06 Jun, 2017 Tonsillitis J03.90 [facility] [address] [facility] [id number] [address] [place] [phone] 05 Jun, 2017 [facility] [address] [facility] [id number] [address] [place] [phone] 03 Jun, 2017 Acute non-recurrent maxillar y sinusitis J01.00 [facility] [address] [place] [phone] Jun, [facility] [address] [phone] May, [facility] [address] [place] [id number] [address] [place] [phone] May, [facility] [address] [phone] May, GERD (gastroesophageal reflu x disease) K21.9 [facility] [address] [id number] May, Migraine without aura and wi thout status migrainosus, not intractable G43.009 [place] [address] [phone] May, [place] [address] [phone] May, [facility] [address] [id number] May, Panlobular emphysema J43.1 a nd Acute non-recurrent maxillary sinusitis J01.00 [place] [address] [id number] May, Bipolar 1 disorder, depresse d, moderate F31.32 ; Panic disorder with agoraphobia F40.01 and Akathisia G25.71 [facility] [address] [id number] Apr, [place] [address] [address] Apr, [place] [address] [phone] Apr, Acute non-recurrent maxillar y sinusitis J01.00 [place] [address] [address] Apr, Panlobular emphysema J43.1 [facility] [address] [facility] [id number] [address] [place] [phone] Apr, [facility] [address] [facility] [id number] [address] [place] [phone] Apr, Exudative tonsillitis J03.90 and Sore throat J02.9 [facility] [address] [facility] [id number] [address] [place] [phone] Mar, [facility] [address] [facility] [id number] [address] [place] [phone] Mar, Acute non-recurrent maxillar y sinusitis J01.00 [place] [address] [facility] [id number] [address] [place] [phone] Mar, [facility] [address] [place] [id number] [place] [phone] Mar, Panlobular emphysema J43.1 a nd Diabetes E11.9 [facility] [address] [facility] [id number] [address] [place] [id number] Mar, [facility] [address] [facility] [id number] [address] [place] [id number] Feb, Wheezing R06.2 and Acute rec urrent pansinusitis J01.41 [facility] [address] [facility] [id number] [address] [place] [phone] Feb, [facility] [address] [facility] [id number] [address] [place] [id number] Feb, Acute non-recurrent maxillar y sinusitis J01.00 [facility] [address] [facility] [id number] [address] [place] [phone] Feb, Chronic obstructive pulmonar y disease, unspecified J44.9 [facility] [address] [facility] [id number] [address] [place] [phone] Feb, Hypoxemia R09.02 and Chronic obstructive pulmonary disease, unspecified J44.9 [facility] [address] [facility] [id number] [address] [place] [id number] 28 Jan, 2017 Bipolar 1 disorder, depresse d, moderate F31.32 ; Panic disorder with agoraphobia F40.01 ; Chronic post-traumatic stress disorder (PTSD) F43.12 ; Diabetes E11.9 and Moderate persistent asthma without complication J45.40 [facility] [address] [id number] [address] [place] [phone] Jan, [facility] [address] [id number] [address] [place] [phone] Jan, Acute non-recurrent maxillar y sinusitis J01.00 [place] [address] [facility] [id number] [address] [place] [id number] Jan, [place] [address] [id number] [address] [place] [id number] Jan, [facility] [address] [id number] [address] [place] [id number] Jan, Moderate persistent [facility] J[facility].40 and Hypoxemia R09.02 [place] [address] [facility] [id number] [address] [place] [id number] Jan, Moderate persistent asthma w [facility] complication J45.40 and Hypoxemia R09.02 [place] [address] [facility] [id number] [address] [place] [phone] Jan, [facility] [address] [id number] [address] [place] [id number] Dec, Acute non-recurrent maxillar y sinusitis J01.00 [facility] [address] [facility] [id number] [address] [place] [id number] Dec, Chronic obstructive pulmonar y disease, unspecified J44.9 [facility] [address] [facility] [id number] [address] [place] [id number] Dec, [place] [address] [facility] [id number] [address] [place] [id number] Dec, Mild persistent asthma witho ut complication J45.30 and Other chronic pain G89.29 [facility] [address] [facility] [id number] [address] [place] [id number] Nov, [facility] [address] [facility] [id number] [address] [place] [id number] Nov, Acute non-recurrent maxillar y sinusitis J01.00 [facility] [address] [facility] [id number] [address] [place] [phone] Nov, [place] [address] [place] [id number] [place] [phone] Nov, [place] [address] [place] [id number] [address] [place] [phone] Oct, [place] [address] [place] [id number] [place] [id number] Oct, Bipolar 1 disorder, depresse d, partial remission F31.75 ; Panic disorder with agoraphobia F40.01 and Chronic post-traumatic stress disorder (PTSD) F43.12 [place] [address] [place] [id number] [place] [phone] Oct, Acute non-recurrent maxillar y sinusitis J01.00 [place] [address] [facility] [id number] [address] [place] [phone] Oct, [facility] [address] [place] [id number] [place] [phone] Oct, Diabetes E11.9 [place] [address] [facility] [id number] [place] [phone] September, Diabetes E11.9 [place] [address] [facility] [id number] [address] [place] [phone] September, Diabetes E11.9 and Sinus tac hycardia R00.0 [place] [address] [facility] [id number] [address] [place] [phone] September, [facility] [address] [facility] [id number] [address] [place] [phone] September, [facility] [address] [place] [id number] [address] [place] [id number] Aug, Diabetes E11.9 and Lumbago w ith sciatica, right side M54.41 [facility] [address] [place] [id number] [address] [place] [phone] Aug, [facility] [address] [place] [id number] [address] [place] [phone] Jul, Bipolar 1 disorder, depresse d, moderate F31.32 ; Panic disorder with agoraphobia F40.01 and Chronic post-traumatic stress disorder (PTSD) F43.12 [facility] [id number] [place] [id number] Jul, Sore throat J02.9 [facility] [address] [facility] [id number] [address] [place] [id number] Jul, [facility] [address] [place] [id number] [address] [place] [phone] Jul, [facility] [address] [place] [id number] [address] [place] [phone] Jul, [facility] [address] [place] [id number] [address] [place] [phone] Jul, [facility] [address] [facility] [id number] [address] [place] [phone] Jul, Sore throat J02.9 and Pharyn gitis, unspecified etiology J02.9 [facility] [address] [facility] [id number] [address] [place] [id number] Jun, [facility] [address] [place] [id number] [address] [place] [phone] Jun, Diabetes E11.9 [facility] [address] [place] [id number] [address] [place] [id number] Jun, [facility] [address] [id number] [address] [place] [id number] Jun, [facility] [address] [id number] [address] [place] [phone] Jun, [facility] [address] [id number] [address] [place] [phone] Jun, [facility] [address] [id number] [address] [place] [phone] Jun, [facility] [address] [id number] [address] [place] [phone] Jun, [facility] [address] [id number] [address] [place] [phone] Jun, [facility] [address] [id number] [address] [place] [id number] Jun, [facility] [address] [id number] [address] [place] [id number] May, Diabetes E11.9 ; Other chron ic pain G89.29 ; Acute recurrent maxillary sinusitis J01.01 ; Bipolar I disorder with depression F31.9 and Anxiety disorder, unspecified F41.9 [facility] [address] [id number] [address] [place] [id number] May, [facility] [address] [id number] [address] [place] [id number] May, Diabetes E11.9 ; Bipolar I d isorder with depression F31.9 ; Anxiety disorder, unspecified F41.9 ; Other chronic pain G89.29 and Acute recurrent maxillary sinusitis J01.01 [facility] [address] [id number] [address] [place] [phone] May, [facility] [address] [facility] [id number] [address] [place] [phone] May, Attention deficit hyperactiv ity disorder (ADHD), predominantly inattentive type F90.0 [facility] [address] [id number] [address] [place] [phone] May, [facility] [address] [facility] [id number] [address] [place] [phone] Apr, Attention deficit hyperactiv ity disorder (ADHD), predominantly inattentive type F90.0 and Non-seasonal allergic rhinitis due to other allergic trigger J30.89 [facility] [address] [id number] [address] [place] [id number] 15 Apr, 2016 Bipolar 1 disorder, depresse d, moderate F31.32 ; Panic disorder with agoraphobia F40.01 and Chronic post-traumatic stress disorder (PTSD) F43.12 [place] [address] [place] [id number] [address] [place] [id number] 06 Apr, 2016 Dental examination Z01.20 [facility] [address] [facility] [id number] [address] [place] [phone] Mar, [facility] [address] [facility] [id number] [address] [place] [phone] Mar, [place] [address] [place] [id number] [address] [place] [phone] Mar, Bipolar I disorder with depr ession F31.9 and Anxiety disorder, unspecified F41.9 [place] [address] [facility] [id number] [address] [place] [id number] 08 Mar, 2016 Panic disorder with agorapho syd F40.01 ; Bipolar 1 disorder, depressed, moderate F31.32 and Chronic post-traumatic stress disorder (PTSD) F43.12 [facility] [address] [facility] [id number] [address] [place] [id number] 04 Mar, 2016 [place] [address] [facility] [id number] [address] [place] [id number] 02 Mar, 2016 Dental caries K02.9 [place] [address] [place] [id number] [address] [place] [id number] 24 Feb, 2016 Lumbago with sciatica, left side M54.42 ; Lumbago with sciatica, right side M54.41 and Other chronic pain G89.29 [facility] [address] [facility] [id number] [address] [place] [id number] 17 Feb, 2016 [facility] [address] [place] [id number] [place] [phone] 14 Feb, 2016 [facility] [address] [place] [id number] [place] [phone] 13 Feb, 2016 Bipolar I disorder with depr ession F31.9 ; PTSD (post-traumatic stress disorder) F43.10 and Mood disorder F39 [facility] [address] [place] [id number] [place] [phone] 13 Feb, 2016 [facility] [address] [id number] 11 Feb, 2016 Dental examination Z01.20 [facility] [address] [id number] 07 Feb, 2016 [facility] [address] [place] [id number] [place] [id number] 03 Feb, 2016 Acute bronchitis, unspecifie d organism J20.9 [facility] [address] [place] [id number] [address] [place] [phone] Jan, Mood disorder F39 ; Migraine without aura and without status migrainosus, not intractable G43.009 ; Irritable bowel syndrome, unspecified type K58.9 ; Diabetes E11.9 and Encounter for immunization Z23 [facility] [address] [place] [id number] [address] [place] [id number] 15 Jan, 2016 [facility] [address] [place] [id number] [place] [phone] 06 Jan, 2016 [facility] [address] [place] [id number] [address] [place] [id number] Jan, [facility] [address] [id number] [address] [place] [phone] Jan, [facility] [address] [facility] [id number] [address] [place] [phone] Jan, [facility] [address] [facility] [id number] [address] [place] [phone] Dec, Bipolar I disorder with depr ession F31.9 ; PTSD (post-traumatic stress disorder) F43.10 and Panic disorder with agoraphobia F40.01 [facility] [address] [facility] [id number] [address] [place] [id number] Dec, Chronic obstructive pulmonar y disease, unspecified COPD type J44.9 ; Tremor R25.1 and Anxiety F41.9 [facility] [address] [facility] [id number] [address] [place] [phone] Dec, [facility] [address] [facility] [id number] [address] [place] [phone] Nov, Tremors of nervous system R2 5.1 and Cramping of feet R25.2 [facility] [address] [facility] [id number] [address] [place] [phone] Nov, [facility] [address] [facility] [id number] [address] [place] [phone] Nov, [facility] [address] [facility] [id number] [address] [place] [phone] Oct, Chronic obstructive pulmonar y disease, unspecified J44.9 [facility] [address] [facility] [id number] [address] [place] [phone] Oct, [facility] [address] [facility] [id number] [address] [place] [phone] Oct, Tremor R25.1 [facility] [address] [facility] [id number] [address] [place] [phone] Oct, Bipolar I disorder with depr ession F31.9 ; Diabetes E11.9 ; PTSD (post-traumatic stress disorder) F43.10 and Panic disorder with agoraphobia F40.01 [facility] [address] [facility] [id number] [address] [place] [id number] Oct, Mood disorder F39 [facility] [address] [facility] [id number] [address] [place] [phone] September, [facility] [address] [place] [id number] [address] [place] [id number] September, Diabetes E11.9 ; Bipolar I d isorder with depression F31.9 ; PTSD (post-traumatic stress disorder) F43.10 and Panic disorder with agoraphobia F40.01 [place] [address] [facility] [id number] [address] [place] [id number] September, Mood disorder F39 ; Schizoaf fective disorder, unspecified type F25.9 ; Arthritis M19.90 ; Tremor R25.1 ; Acute non-recurrent frontal sinusitis J01.10 and Blood in stool K92.1 [place] [address] [place] [id number] [address] [place] [phone] September, [facility] [address] [facility] [id number] [address] [place] [id number] September, Chronic obstructive pulmonar y disease, unspecified J44.9 [place] [address] [facility] [id number] [address] [place] [id number] September, Diabetes E11.9 [facility] [address] [facility] [id number] [address] [place] [phone] Aug, Other bipolar disorder F31.8 9 and Anxiety disorder, unspecified F41.9 [facility] [address] [facility] [id number] [address] [place] [phone] Aug, [place] [address] [place] [id number] [address] [place] [id number] Aug, Diabetes E11.9 [place] [id number] [facility] [id number] [address] [place] [id number] 18 Aug, 2015 [facility] [address] [id number] [address] [place] [phone] 14 Aug, 2015 Diabetes E11.9 ; Fatigue R53 .83 and Dizziness R42 [facility] [address] [id number] [address] [place] [id number] 13 Aug, 2015 Other bipolar disorder F31.8 9 [facility] [address] [id number] [address] [place] [phone] Aug, Generalized anxiety disorder F41.1 [facility] [address] [id number] [address] [place] [phone] Aug, Other bipolar disorder F31.8 9 and Anxiety disorder, unspecified F41.9 [facility] [address] [id number] [address] [place] [phone] Aug, [facility] [address] [id number] [address] [place] [phone] 29 Jul, 2015 [facility] [address] [id number] [address] [place] [phone] 24 Jul, 2015 [facility] [address] [id number] [address] [place] [phone] 23 Jul, 2015 Bronchitis J40 [facility] [address] [id number] [address] [place] [phone] Jul, Anxiety disorder F41.9 [facility] [address] [id number] [address] [place] [id number] Jul, Other bipolar disorder F31.8 9 and Anxiety disorder, unspecified F41.9 [facility] [address] [id number] [address] [place] [id number] 18 Jul, 2015 Other bipolar disorder F31.8 9 and Fibromyalgia M79.7 [facility] [address] [id number] [address] [place] [id number] 10 Jul, 2015 [facility] [address] [id number] [address] [place] [id number] Jul, [facility] [address] [facility] [id number] [address] [place] [id number] Jul, [facility] [address] [place] [id number] [address] [place] [id number] Jul, Other bipolar disorder F31.8 9 and Anxiety disorder, unspecified F41.9 [facility] [address] [facility] [id number] [address] [place] [id number] Jun, GERD (gastroesophageal reflu x disease) K21.9 [facility] [address] [facility] [id number] [place] [id number] Jun, [facility] [address] [place] [id number] [place] [phone] May, [facility] [address] [id number] May, Diabetes E11.9 ; Back pain M 54.9 ; GERD (gastroesophageal reflux disease) K21.9 ; Hypertension I10 and Peripheral neuropathy G62.9 [facility] [address] [place] [id number] [place] [phone] Mar, [facility] [address] [place] [id number] [place] [phone] Mar, [facility] [address] [id number] Mar, Acute sinusitis J01.90 and O titis media, left H66.92 [facility] [address] [place] [id number] [address] [place] [id number] Feb, [facility] [address] [place] [id number] [place] [phone] Feb, [facility] [address] [place] [id number] [place] [phone] Feb, [facility] [address] [place] [address] Feb, [facility] [address] [facility] [id number] [address] [place] [id number] Jan, [facility] [address] [place] [id number] [address] [place] [id number] Jan, Diabetes 250.00 and Back higinio n 724.5 [facility] [address] [place] [id number] [place] [id number] Jan, [facility] [address] [place] [id number] [address] [place] [id number] Dec, Diabetes 250.00 ; Benign ess ential hypertension 401.1 and Allergic rhinitis 477.9 [facility] [address] [place] [id number] [address] [place] [id number] Dec, [facility] [address] [id number] Dec, [facility] [address] [place] [id number] [address] [place] [id number] Dec, Psychosis 298.9 [facility] [address] [id number] Dec, Medication side effect 995.2 0 and Generalized anxiety disorder 300.02 [facility] [address] [place] [id number] [address] [place] [phone] Dec, Acquired cognitive dysfuncti on 294.9 [facility] [address] [place] [id number] [address] [place] [id number] Dec, [facility] [address] [place] [id number] [place] [id number] Dec, Unspecified myalgia and myos itis 729.1 and Generalized anxiety disorder 300.02 [facility] [address] [place] [id number] [address] [place] [id number] Nov, [facility] [address] [place] [id number] [place] [address] [place] [address] Nov, [facility] [address] [id number] [address] [place] [phone] Nov, [facility] [address] [facility] [id number] [address] [place] [phone] Nov, Upper respiratory infection 465.9 and Chronic airway obstruction, not elsewhere classified 496 [facility] [address] [id number] [address] [place] [id number] Nov, Hyponatremia 276.1 [facility] [address] [id number] [address] [place] [phone] Oct, [facility] [address] [id number] [address] [place] [phone] Oct, [facility] [address] [facility] [id number] [address] [place] [phone] Oct, [facility] [address] [id number] [address] [place] [id number] Oct, [facility] [address] [id number] [address] [place] [phone] Oct, Hyponatremia 276.1 [facility] [address] [facility] [id number] [address] [place] [id number] Oct, [facility] [address] [id number] [address] [place] [phone] Oct, [facility] [address] [facility] [id number] [address] [place] [id number] Oct, Generalized anxiety disorder 300.02 [facility] [address] [id number] [address] [place] [phone] Oct, Generalized anxiety disorder 300.02 and Diabetes 250.00 [facility] [address] [id number] [address] [place] [id number] 14 Aug, 2014 [facility] [address] [facility] [id number] [address] [place] [id number] Aug, [facility] [address] [id number] [address] [place] [address], [place] [id number] Jul, [facility] [address] [id number] [address] [place] [address], [place] [id number] Jul, [facility] [address] [id number] [address] [place] [address], [place] [id number] Jun, [facility] [address] [id number] [address] [place] [address], [place] [id number] Jun, [facility] [address] [id number] [address] [place] [address], [place] [id number] Jun, [facility] [address] [id number] [address] [place] [address], [place] [phone] Jun, [facility] [address] [id number] [address] [place] [address], [place] [phone] Jun, [facility] [address] [id number] [address] [place] [address], [place] [id number] May, [facility] [address] [id number] [address] [place] [address], [place] [phone] May, [facility] [address] [id number] [address] [place] [address], [place] [id number] Apr, [facility] [address] [id number] [address] [place] [address], [place] [phone] Apr, [facility] [address] [id number] [address] [place] [address], [place] [id number] 18 Apr, 2013 [facility] [address] [id number] [address] [place] [address], [place] [id number] 18 Apr, 2013 [facility] [address] [id number] [address] [place] [address], [place] [id number] 17 Apr, 2013 [facility] [address] [id number] [address] [place] [address], [place] [id number] Apr, [facility] [address] [id number] [address] [place] [address], [place] [id number] Apr, [facility] [address] [id number] [address] [place] [address], [place] [id number] Apr, [facility] [address] [id number] [address] [place] [address], [place] [id number] Feb, [facility] [address] [id number] [address] [place] [address], [place] [id number] Feb, [facility] [address] [id number] [address] [place] [address], [place] [id number] Jan, [facility] [address] [id number] [address] [place] [address], [place] [id number] Jan, [facility] [address] [id number] [address] [place] [address], [place] [id number] Dec, [facility] [address] [id number] [address] [place] [address], [place] [id number] Dec, [facility] [address] [id number] [address] [place] [address], [place] [id number] Dec, [facility] [address] [id number] [address] [place] [address], [place] [id number] Nov, [facility] [address] [id number] [address] [place] [address], [place] [id number] Nov, [facility] [address] [id number] [address] [place] [address], [place] [id number] Nov, [facility] [address] [id number] [address] [place] [address], [place] [id number] Oct, [facility] [address] [id number] [address] [place] [address], [place] [id number] Oct, [facility] [address] [id number] [address] [place] [address], [place] [address] Oct, [facility] [address] [id number] [address] [place] [address], [place] [address] September, [facility] [address] [id number] [address] [place] [address], [place] [id number] September, [facility] [address] [id number] [address] [place] [address], [place] [id number] September, [facility] [address] [id number] [address] [place] [address], [place] [id number] Aug, [facility] [address] [id number] [address] [place] [address], [place] [id number] Aug, [facility] [address] [id number] [address] [place] [address], [place] [address] Aug, [facility] [address] [id number] [address] [place] [address], [place] [id number] 16 Aug, 2011 [facility] [address] [id number] [address] [place] [address], [place] [address] Jul, [facility] [address] [id number] [address] [place] [address], [place] [id number] Jun, [facility] [address] [id number] [address] [place] [address], [place] [id number] 14 Jun, 2011 [facility] [address] [id number] [address] [place] [address], [place] [address] Jun, [facility] [address] [id number] [address] [place] [address], [place] [id number] 07 Jun, 2011 [facility] [address] [id number] [address] [place] [address], [place] [address] Jun, [facility] [address] [id number] [address] [place] [address], [place] [address] May, [facility] [address] [id number] [address] [place] [address], [place] [id number] May, [facility] [address] [id number] [address] [place] [address], [place] [id number] May, [facility] [address] [id number] [address] [place] [address], [place] [id number] 04 May, 2011 [facility] [address] [id number] [address] [place] [address], [place] [id number] Apr, [facility] [address] [id number] [address] [place] [address], [place] [id number] 13 Apr, 2011 [facility] [address] [id number] [address] [place] [address], [place] [id number] 05 Apr, 2011 [facility] [address] [id number] [address] [place] [address], [place] [address] Mar, [facility] [address] [id number] [address] [place] [address], [place] [id number] Mar, [facility] [address] [id number] [address] [place] [address], [place] [address] Mar, [facility] [address] [id number] [address] [place] [address], [place] [id number] Feb, [facility] [address] [id number] [address] [place] [address], [place] [id number] Feb, [facility] [address] [id number] [address] [place] [address], [place] [id number] Feb, [facility] [address] [id number] [address] [place] [address], [place] [id number] Nov, [facility] [address] [id number] [address] [place] [address], [place] [id number] September, [facility] [address] [id number] [address] [place] [address], [place] [id number] 12 Aug, 2010 [facility] [address] [id number] [address] [place] [address], [place] [id number] 14 Jul, 2010 [facility] [address] [id number] [address] [place] [address], [place] [address] May, [facility] [address] [id number] [address] [place] [address], [place] [id number] Apr, [facility] [address] [facility] [id number] [address] [place] [id number] Apr, [facility] [address] [facility] [id number] [address] [place] [id number] Apr, [facility] [address] [facility] [id number] [address] [place] [id number] Apr, [facility] [address] [facility] [id number] [address] [place] [id number] Apr, IMMUNIZATIONS No Known Immunizations SOCIAL HISTORY Never Assessed REASON FOR VISIT requesting a returned call PLAN OF CARE VITAL SIGNS MEDICATIONS [...]
--- OUTSIDE RECORDS SUMMARY | 2019-07-17 11:08 | XMS REPORT ---
Author Author Sujey WILLS Organization [facility] Address [address] [place] [address] Care Team Providers Care [employer] Name Role Phone JOHANNGISELEYVON Unavailable PROBLEMS Type Condition ICD9-CM Code CLV02-YG Code Onset Dates Condition S tatus SNOMED Code Problem Back pain M54.9 Active 395617760 Problem Diabetes E11.9 Active 35354786 Problem GERD (gastroesophageal reflux disease) K21.9 Active 945602858 Problem Hypertension I10 Active 2921332 3 Problem Anxiety disorder, unspecified F41.9 Active 188612245 Problem Other bipolar disorder F31.89 Active 34375889 Problem Fibromyalgia M79.7 Active 8670788 7 Problem Panic disorder with agoraphobia F40.01 Active 76899946 Problem Panlobular emphysema J43.1 Active 0019635 Problem Chronic obstructive pulmonary disease, unspecified J44.9 Active 08475435 Problem Akathisia G25.71 Active 389531614 Problem Lumbago with sciatica, left side M54.42 Active 247329629 Problem Migraine without aura and without status migrain osus, not intractable G43.009 Active 324561962 Problem Fibrocystic disease of right breast N60.11 Active 72001361 Problem Fibrocystic disease of left breast N60.12 Active 61644179 Problem Slow transit constipation K59.01 Acti ve 27234147 Problem Essential tremor G25.0 Active 609 247775 Problem Bipolar 1 disorder, depressed, moderate F31.32 Active 64958282 Problem Other chronic pain G89.29 Active 8 7435013 Problem Lumbago with sciatica, right side M54.41 Active 138695617 Problem Irritable bowel syndrome with constipation K58.1 Active 566529784 Problem Arthritis M19.90 Active 6726391 Problem Schizoaffective disorder, bipolar type F25.0 Active 48601443 Problem Irritable bowel syndrome with both constipation and diarrh ea K58.2 Active 82359310 Problem Attention deficit hyperactiv ity disorder (ADHD), predominantly inattentive type F90.0 Active 51140216 Problem Bipolar I disorder with depression F31.9 Active 23935336 Problem Chronic post-traumatic stress disorder (PTSD) F43. 12 Active 319330085 Problem Bipolar affective disorder, remission status unspecified F31.9 Active 46522027 Problem Mild persistent asthma without complication J45.30 Active 745504390 Problem Moderate persistent asthma without complication J4 5.40 Active 813984783 Problem Acute non-recurrent maxillary sinusitis J01.00 Active 80183677 Problem Bipolar 1 disorder, depressed, partial remission F 31.75 Active 60157737 ALLERGIES No Information ENCOUNTERS Encounter Location Date Diagnosis [place] [address] [address] [facility] [id number] [address] [place] [phone] Mar, [place] [address] [address] [facility] [id number] [address] [place] [address] Dec, [place] [address] [address] [place] [id number] [address] [place] [id number] Nov, Bipolar 1 disorder, depresse d, partial remission F31.75 and Panic disorder with agoraphobia F40.01 [place] [address] [address] [facility] [id number] [address] [place] [address] Nov, Panlobular emphysema J43.1 [facility] [address] [facility] [id number] [address] [place] [address] Nov, Cerebrovascular accident (CV A) due to occlusion of right cerebellar artery I63.541 and Acute non-recurrent maxillary sinusitis J01.00 [facility] [address] [facility] [id number] [address] [place] [address] Nov, Panlobular emphysema J43.1 [facility] [address] [facility] [id number] [address] [place] [phone] Nov, [facility] [address] [facility] [id number] [address] [place] [phone] Nov, [facility] [address] [facility] [id number] [address] [place] [phone] Nov, [facility] [address] [id number] [address] [place] [address] Nov, [facility] [address] [id number] [address] [place] [address] Nov, [facility] [address] [facility] [id number] [address] [place] [phone] Nov, [facility] [address] [id number] [address] [place] [address] Nov, [facility] [address] [facility] [id number] [address] [place] [address] Nov, Mild persistent asthma witho ut complication J45.30 and Irritable bowel syndrome with both constipation and diarrhea K58.2 [facility] [address] [facility] [id number] [address] [place] [address] Nov, [facility] [address] [facility] [id number] [address] [place] [phone] Oct, [facility] [address] [facility] [id number] [address] [place] [address] Oct, [facility] [address] [facility] [id number] [address] [place] [address] Oct, Type 2 diabetes mellitus wit h diabetic neuropathy, unspecified whether group home insulin use E11.40 ; Diabetes E11.9 ; Slow transit constipation K59.01 ; Edema of both legs R60.0 and Dysfunction of right eustachian tube H69.81 [facility] [address] [facility] [id number] [address] [place] [address] Oct, Frequent headaches R51 [facility] [address] [facility] [id number] [address] [place] [address] Oct, [facility] [address] [facility] [id number] [address] [place] [phone] Oct, [facility] [address] [facility] [id number] [address] [place] [phone] Oct, [facility] [address] [facility] [id number] [address] [place] [phone] Oct, [facility] [address] [facility] [id number] [address] [place] [address] Oct, [facility] [address] [facility] [id number] [address] [place] [phone] Oct, [facility] [address] [facility] [id number] [address] [place] [address] Oct, [facility] [address] [facility] [id number] [address] [place] [address] Oct, [facility] [address] [facility] [id number] [address] [place] [phone] September, Frequent headaches R51 [facility] [address] [facility] [id number] [address] [place] [address] September, Bilateral otitis media with effusion H65.93 ; Dizziness R42 and Essential tremor G25.0 [facility] [address] [facility] [id number] [address] [place] [address] September, Chronic obstructive pulmonar y disease, unspecified COPD type J44.9 [facility] [address] [facility] [id number] [address] [place] [address] September, Chronic obstructive pulmonar y disease, unspecified COPD type J44.9 [facility] [address] [facility] [id number] [address] [place] [address] September, Migraine without aura and wi thout status migrainosus, not intractable G43.009 [facility] [address] [facility] [id number] [address] [place] [address] September, [facility] [address] [facility] [id number] [address] [place] [address] September, [facility] [address] [facility] [id number] [address] [place] [address] September, [place] [address] [address] [place] [id number] [address] [place] [address] September, Frequent headaches R51 [place] [address] [address] [place] [id number] [address] [place] [address] Aug, [place] [address] [address] Aug, Breast mass, right N63.10 [place] [address] [address] Aug, Breast lump N63.0 [place] [address] [address] Aug, [place] [address] [address] Aug, Bipolar affective disorder, remission status unspecified F31.9 and Diabetes E11.9 [place] [address] [address] Aug, Diabetes E11.9 ; Schizoaffec tive disorder, bipolar type F25.0 ; Pharyngitis due to other organism J02.8 ; Panlobular emphysema J43.1 and Irritable bowel syndrome with both constipation and diarrhea K58.2 [place] [address] [address] Aug, Abnormal mammogram R92.8 [place] [id number] [place] [address] Aug, [place] [address] [address] Aug, Bipolar 1 disorder, depresse d, moderate F31.32 ; Panic disorder with agoraphobia F40.01 and Chronic post-traumatic stress disorder (PTSD) F43.12 [place] [address] [address] [place] [id number] [address] [place] [address] Aug, [place] [address] [address] [place] [id number] [address] [place] [address] Aug, [facility] [address] [facility] [id number] [address] [place] [address] Aug, [facility] [address] [facility] [id number] [address] [place] [address] Jul, [facility] [address] [facility] [id number] [address] [place] [address] Jul, Mild persistent asthma witho ut complication J45.30 [facility] [address] [facility] [id number] [address] [place] [address] 19 Jul, 2017 Mild persistent asthma witho ut complication J45.30 [facility] [address] [facility] [id number] [address] [place] [phone] 15 Jul, 2017 Bipolar affective disorder, remission status unspecified F31.9 ; Diabetes E11.9 and Irritable bowel syndrome with constipation K58.1 [facility] [address] [facility] [id number] [address] [place] [address] Jul, [facility] [address] [facility] [id number] [address] [place] [address] Jul, [place] [address] [facility] [id number] [address] [place] [phone] Jul, Frequent headaches R51 [place] [address] [facility] [id number] [address] [place] [address] Jul, [facility] [address] [facility] [id number] [address] [place] [address] Jul, [facility] [address] [facility] [id number] [address] [place] [address] Jul, [place] [address] [address] [facility] [id number] [address] [place] [address] Jul, Frequent headaches R51 ; Fib rocystic disease of left breast N60.12 ; Fibrocystic disease of right breast N60.11 and Diabetes E11.9 [place] [address] [facility] [id number] [address] [place] [address] 02 Jul, 2017 [facility] [address] [facility] [id number] [address] [place] [address] Jul, [facility] [address] [facility] [id number] [address] [place] [address] 21 Jun, [address] [facility] [address] [facility] [id number] [address] [place] [address] 20 Jun, 2017 [facility] [address] [facility] [id number] [address] [place] [address] 19 Jun, 2017 [facility] [address] [facility] [id number] [address] [place] [address] 15 Jun, 2017 Mild persistent asthma witho ut complication J45.30 ; Chronic obstructive pulmonary disease, unspecified COPD type J44.9 and Exudative tonsillitis J03.90 [facility] [address] [facility] [id number] [address] [place] [address] 13 Jun, 2017 Encounter for immunization Z 23 [facility] [address] [facility] [id number] [address] [place] [address] 12 Jun, 2017 [facility] [address] [facility] [id number] [address] [place] [address] 12 Jun, 2017 [facility] [address] [facility] [id number] [address] [place] [address] 09 Jun, 2017 [facility] [address] [facility] [id number] [address] [place] [address] 06 Jun, [address] [facility] [address] [facility] [id number] [address] [place] [address] 05 Jun, 2017 [facility] [address] [facility] [id number] [address] [place] [phone] 03 Jun, 2017 Acute non-recurrent maxillar y sinusitis J01.00 [facility] [address] [place] [id number] [address] [place] [address] Jun, [facility] [address] [place] [id number] [place] [phone] May, [facility] [address] [place] [id number] [address] [place] [address] May, [place] [address] [address] May, GERD (gastroesophageal reflu x disease) K21.9 [place] [address] [address] [place] [id number] [place] [address] May, Migraine without aura and wi thout status migrainosus, not intractable G43.009 [place] [address] [address] May, [place] [address] [address] May, [facility] [address] [address] May, Panlobular emphysema J43.1 a nd Acute non-recurrent maxillary sinusitis J01.00 [place] [address] [address] May, Bipolar 1 disorder, depresse d, moderate F31.32 ; Panic disorder with agoraphobia F40.[address] [facility] [id number] [place] [address] Apr, [place] [address] [address] Apr, [place] [address] [place] [id number] [place] [address] Apr, Acute non-recurrent maxillar y sinusitis J01.00 [place] [address] [address] Apr, Panlobular emphysema J43.1 [facility] [address] [id number] [address] [place] [address] Apr, [facility] [address] [id number] [address] [place] [address] Apr, Sore throat J02.9 and Exudat minoo tonsillitis J03.90 [facility] [address] [id number] [address] [place] [address] Mar, [facility] [address] [facility] [id number] [address] [place] [address] Mar, Acute non-recurrent maxillar y sinusitis J01.00 [place] [address] [facility] [id number] [address] [place] [address] Mar, [facility] [address] [facility] [id number] [address] [place] [address] Mar, Panlobular emphysema J43.1 a nd Diabetes E11.9 [facility] [address] [facility] [id number] [address] [place] [address] Mar, [facility] [address] [facility] [id number] [address] [place] [address] Feb, Wheezing R06.2 and Acute rec urrent pansinusitis J01.41 [facility] [address] [facility] [id number] [address] [place] [address] Feb, [facility] [address] [facility] [id number] [address] [place] [address] Feb, Acute non-recurrent maxillar y sinusitis J01.00 [place] [address] [facility] [id number] [address] [place] [address] Feb, Chronic obstructive pulmonar y disease, unspecified J44.9 [facility] [address] [facility] [id number] [address] [place] [address] Feb, Hypoxemia R09.02 and Chronic obstructive pulmonary disease, unspecified J44.9 [facility] [address] [id number] [address] [place] [address] Jan, Bipolar 1 disorder, depresse d, moderate F31.32 ; Panic disorder with agoraphobia F40.01 ; Chronic post-traumatic stress disorder (PTSD) F43.12 ; Diabetes E11.9 and Moderate persistent asthma without complication J45.40 [place] [id number] [id number] [address] [place] [address] Jan, [place] [address] [id number] [address] [place] [address] Jan, Acute non-recurrent maxillar y sinusitis J01.00 [place] [address] [facility] [id number] [address] [place] [address] Jan, [place] [address] [facility] [id number] [address] [place] [address] Jan, [place] [address] [id number] [address] [place] [address] Jan, [facility] J[facility].40 and Hypoxemia R09.02 [place] [address] [facility] [id number] [address] [place] [address] Jan, Moderate persistent asthma w ithout complication J45.40 and Hypoxemia R09.02 [place] [address] [id number] [address] [place] [address] Jan, [place] [address] [id number] [address] [place] [address] Dec, Acute non-recurrent maxillar y sinusitis J01.00 [place] [address] [id number] [address] [place] [address] Dec, Chronic obstructive pulmonar y disease, unspecified J44.9 [place] [address] [facility] [id number] [address] [place] [address] Dec, [place] [address] [facility] [id number] [address] [place] [address] Dec, Mild persistent asthma witho ut complication J45.30 and Other chronic pain G89.29 [facility] [address] [facility] [id number] [address] [place] [address] Nov, [facility] [address] [facility] [id number] [address] [place] [address] Nov, Acute non-recurrent maxillar y sinusitis J01.00 [facility] [address] [facility] [id number] [address] [place] [address] Nov, [facility] [address] [facility] [id number] [address] [place] [address] Nov, [place] [address] [place] [id number] [address] [place] [address] Oct, [facility] [address] [facility] [id number] [address] [place] [address] Oct, Bipolar 1 disorder, depresse d, partial remission F31.75 ; Panic disorder with agoraphobia F40.01 and Chronic post-traumatic stress disorder (PTSD) F43.12 [place] [address] [facility] [id number] [address] [place] [address] Oct, Acute non-recurrent maxillar y sinusitis J01.00 [place] [address] [facility] [id number] [address] [place] [address] Oct, [facility] [address] [facility] [id number] [address] [place] [address] Oct, Diabetes E11.9 [facility] [address] [facility] [id number] [address] [place] [address] September, Diabetes E11.9 [place] [address] [facility] [id number] [address] [place] [address] September, Diabetes E11.9 and Sinus tac hycardia R00.0 [facility] [address] [facility] [id number] [address] [place] [address] September, [facility] [address] [facility] [id number] [address] [place] [address] September, [facility] [address] [facility] [id number] [address] [place] [address] Aug, Diabetes E11.9 and Lumbago w ith sciatica, right side M54.41 [facility] [address] [place] [id number] [address] [place] [address] Aug, [facility] [address] [place] [id number] [address] [place] [address] Jul, Bipolar 1 disorder, depresse d, moderate F31.32 ; Panic disorder with agoraphobia F40.01 and Chronic post-traumatic stress disorder (PTSD) F43.12 [facility] [address] [place] [id number] [address] [place] [address] Jul, Sore throat J02.9 [facility] [address] [place] [id number] [address] [place] [id number] Jul, [facility] [id number] [address] [place] [id number] Jul, [facility] [id number] [address] [place] [id number] Jul, [facility] [address] [id number] [address] [place] [id number] Jul, [facility] [address] [facility] [id number] [address] [place] [id number] Jul, Sore throat J02.9 and Pharyn gitis, unspecified etiology J02.9 [facility] [address] [facility] [id number] [address] [place] [id number] Jun, [facility] [address] [facility] [id number] [address] [place] [id number] Jun, Diabetes E11.9 [facility] [address] [id number] [address] [place] [id number] Jun, [facility] [address] [id number] [address] [place] [id number] Jun, [facility] [address] [id number] [address] [place] [id number] Jun, [facility] [address] [id number] [address] [place] [id number] Jun, [facility] [address] [id number] [address] [place] [phone] Jun, [facility] [address] [id number] [address] [place] [phone] Jun, [facility] [address] [id number] [address] [place] [id number] Jun, [facility] [address] [id number] [address] [place] [id number] Jun, [facility] [address] [id number] [address] [place] [address] May, Diabetes E11.9 ; Bipolar I d isorder with depression F31.9 ; Other chronic pain G89.29 ; Acute recurrent maxillary sinusitis J01.01 and Anxiety disorder, unspecified F41.9 [facility] [address] [id number] [address] [place] [address] May, [facility] [address] [id number] [address] [place] [id number] May, Diabetes E11.9 ; Bipolar I d isorder with depression F31.9 ; Anxiety disorder, unspecified F41.9 ; Other chronic pain G89.29 and Acute recurrent maxillary sinusitis J01.01 [facility] [address] [id number] [address] [place] [phone] May, [facility] [address] [id number] [address] [place] [id number] May, Attention deficit hyperactiv ity disorder (ADHD), predominantly inattentive type F90.0 [place] [address] [facility] [id number] [address] [place] [phone] May, [place] [address] [facility] [id number] [address] [place] [address] Apr, Attention deficit hyperactiv ity disorder (ADHD), predominantly inattentive type F90.0 and Non-seasonal allergic rhinitis due to other allergic trigger J30.89 [place] [address] [facility] [id number] [address] [place] [id number] 15 Apr, 2016 Bipolar 1 disorder, depresse d, moderate F31.32 ; Panic disorder with agoraphobia F40.01 and Chronic post-traumatic stress disorder (PTSD) F43.12 [place] [address] [place] [id number] [address] [place] [address] Apr, Dental examination Z01.20 [place] [address] [place] [id number] [address] [place] [phone] Mar, [place] [address] [facility] [id number] [address] [place] [phone] Mar, [place] [address] [place] [id number] [address] [place] [id number] Mar, Bipolar I disorder with depr ession F31.9 and Anxiety disorder, unspecified F41.9 [place] [address] [place] [id number] [address] [place] [id number] 08 Mar, 2016 Panic disorder with agorapho syd F40.01 ; Bipolar 1 disorder, depressed, moderate F31.32 and Chronic post-traumatic stress disorder (PTSD) F43.12 [place] [address] [place] [id number] [address] [place] [id number] 04 Mar, 2016 [place] [address] [place] [id number] [address] [place] [phone] Mar, Dental caries K02.9 [place] [address] [facility] [id number] [address] [place] [id number] 24 Feb, 2016 Lumbago with sciatica, left side M54.42 ; Lumbago with sciatica, right side M54.41 and Other chronic pain G89.29 [facility] [address] [facility] [id number] [address] [place] [phone] 17 Feb, 2016 [facility] [address] [place] [id number] [address] [place] [phone] [address], [address] [facility] [address] [facility] [id number] [address] [place] [id number] 13 Feb, 2016 Bipolar I disorder with depr ession F31.9 ; PTSD (post-traumatic stress disorder) F43.10 and Mood disorder F39 [place] [address] [place] [id number] [address] [place] [id number] 13 Feb, 2016 [place] [address] [place] [id number] [place] [phone] Feb, Dental examination Z01.20 [facility] [address] [place] [id number] [address] [place] [phone] 07 Feb, 2016 [facility] [address] [place] [id number] [address] [place] [phone] Feb, Acute bronchitis, unspecifie d organism J20.9 [facility] [address] [facility] [id number] [address] [place] [id number] 26 Jan, 2016 Mood disorder F39 ; Migraine without aura and without status migrainosus, not intractable G43.009 ; Irritable bowel syndrome, unspecified type K58.9 ; Diabetes E11.9 and Encounter for immunization Z23 [facility] [address] [facility] [id number] [address] [place] [id number] [address], [address] [facility] [address] [facility] [id number] [address] [place] [phone] [address] Jan, 2016 [facility] [address] [place] [id number] [address] [place] [phone] Jan, [facility] [address] [facility] [id number] [address] [place] [phone] Jan, [facility] [address] [facility] [id number] [address] [place] [id number] Jan, [facility] [address] [facility] [id number] [address] [place] [phone] Dec, Bipolar I disorder with depr ession F31.9 ; PTSD (post-traumatic stress disorder) F43.10 and Panic disorder with agoraphobia F40.01 [facility] [address] [facility] [id number] [address] [place] [phone] Dec, Chronic obstructive pulmonar y disease, unspecified COPD type J44.9 ; Tremor R25.[address] [facility] [address] [facility] [id number] [address] [place] [id number] Dec, [facility] [address] [facility] [id number] [address] [place] [id number] Nov, Tremors of nervous system R2 5.1 and Cramping of feet R25.2 [facility] [address] [facility] [id number] [address] [place] [phone] Nov, [facility] [address] [facility] [id number] [address] [place] [id number] Nov, [facility] [address] [facility] [id number] [address] [place] [id number] Oct, Chronic obstructive pulmonar y disease, unspecified J44.9 [facility] [address] [facility] [id number] [address] [place] [phone] Oct, [facility] [address] [facility] [id number] [address] [place] [address] Oct, Tremor R25.1 [facility] [address] [facility] [id number] [address] [place] [phone] Oct, Bipolar I disorder with depr ession F31.9 ; Diabetes E11.9 ; PTSD (post-traumatic stress disorder) F43.10 and Panic disorder with agoraphobia F40.01 [facility] [address] [id number] [address] [place] [phone] Oct, Mood disorder F39 [facility] [address] [facility] [id number] [address] [place] [phone] September, [facility] [address] [facility] [id number] [address] [place] [id number] September, Diabetes E11.9 ; Bipolar I d isorder with depression F31.9 ; PTSD (post-traumatic stress disorder) F43.10 and Panic disorder with agoraphobia F40.01 [place] [id number] [facility] [id number] [address] [place] [address] September, Mood disorder F39 ; Schizoaf fective disorder, unspecified type F25.9 ; Arthritis M19.90 ; Tremor R25.1 ; Acute non-recurrent frontal sinusitis J01.10 and Blood in stool K92.1 [place] [address] [facility] [id number] [address] [place] [id number] September, [place] [address] [facility] [id number] [address] [place] [phone] September, Chronic obstructive pulmonar y disease, unspecified J44.9 [place] [address] [facility] [id number] [address] [place] [phone] September, Diabetes E11.9 [facility] [address] [id number] [address] [place] [phone] Aug, Other bipolar disorder F31.8 9 and Anxiety disorder, unspecified F41.9 [place] [address] [id number] [address] [place] [address] Aug, [facility] [address] [facility] [id number] [address] [place] [address] Aug, Diabetes E11.9 [place] [address] [id number] [address] [place] [id number] 18 Aug, 2015 [facility] [address] [id number] [address] [place] [id number] 14 Aug, 2015 Diabetes E11.9 ; Fatigue R53 .[address] [facility] [address] [id number] [address] [place] [id number] 13 Aug, 2015 Other bipolar disorder F31.[address] [facility] [address] [id number] [address] [place] [phone] Aug, Generalized anxiety disorder F41.1 [facility] [address] [id number] [address] [place] [id number] 07 Aug, 2015 Other bipolar disorder F31.8 9 and Anxiety disorder, unspecified F41.9 [facility] [address] [facility] [id number] [address] [place] [phone] Aug, [facility] [address] [facility] [id number] [address] [place] [phone] 29 Jul, 2015 [facility] [address] [id number] [address] [place] [phone] [address] Jul, 2015 [facility] [address] [facility] [id number] [address] [place] [id number] 23 Jul, [address] [facility] [address] [facility] [id number] [address] [place] [address] Jul, Anxiety disorder F41.9 [facility] [address] [facility] [id number] [address] [place] [phone] Jul, Other bipolar disorder F31.8 9 and Anxiety disorder, unspecified F41.9 [facility] [address] [id number] [address] [place] [phone] 18 Jul, 2015 Other bipolar disorder F31.8 [address] [facility] [address] [facility] [id number] [address] [place] [phone] [address], [address] [facility] [address] [place] [id number] [address] [place] [phone] Jul, [facility] [address] [id number] Jul, [facility] [address] [place] [id number] [place] [phone] Jul, Other bipolar disorder F31.8 9 and Anxiety disorder, unspecified F41.9 [facility] [address] [place] [id number] [place] [phone] Jun, GERD (gastroesophageal reflu x disease) K21.9 [facility] [address] [id number] Jun, [facility] [address] [address] May, [facility] [address] [id number] May, Diabetes E11.9 ; Back pain M 54.9 ; GERD (gastroesophageal reflux disease) K21.9 ; Hypertension I10 and Peripheral neuropathy G62.9 [facility] [address] [id number] Mar, [facility] [address] [address] Mar, [facility] [address] [id number] Mar, Acute sinusitis J01.90 and O titis media, left H66.92 [facility] [address] [id number] Feb, [facility] [address] [address] Feb, [facility] [address] [id number] Feb, [facility] [address] [facility] [id number] [address] [place] [phone] Feb, [facility] [address] [place] [id number] [address] [place] [phone] Jan, [facility] [address] [facility] [id number] [address] [place] [address] Jan, Diabetes 250.00 and Back higinio n 724.5 [facility] [address] [place] [id number] [place] [phone] Jan, [facility] [address] [place] [id number] [address] [place] [address] Dec, Diabetes 250.00 ; Benign ess ential hypertension 401.1 and Allergic rhinitis 477.9 [facility] [address] [place] [id number] [address] [place] [id number] Dec, [facility] [address] [address] Dec, [facility] [address] [place] [id number] [address] [place] [id number] Dec, Psychosis 298.9 [facility] [address] [address] Dec, Medication side effect 995.2 0 and Generalized anxiety disorder 300.02 [facility] [address] [place] [id number] [address] [place] [id number] Dec, Acquired cognitive dysfuncti on 294.9 [facility] [address] [place] [id number] [address] [place] [id number] Dec, [facility] [address] [address] Dec, Unspecified myalgia and myos itis 729.1 and Generalized anxiety disorder 300.02 [facility] [address] [place] [id number] [address] [place] [id number] Nov, [facility] [address] [place] [id number] [address] [place] [id number] Nov, [facility] [address] [id number] [address] [place] [phone] Nov, [facility] [address] [id number] [address] [place] [phone] Nov, Upper respiratory infection 465.9 and Chronic airway obstruction, not elsewhere classified 496 [facility] [address] [id number] [address] [place] [phone] Nov, Hyponatremia 276.1 [facility] [address] [id number] [address] [place] [id number] Oct, [facility] [address] [facility] [id number] [address] [place] [id number] Oct, [facility] [address] [id number] [address] [place] [id number] Oct, [facility] [address] [id number] [address] [place] [id number] Oct, [facility] [address] [id number] [address] [place] [id number] Oct, Hyponatremia 276.1 [facility] [address] [facility] [id number] [address] [place] [phone] Oct, [facility] [address] [facility] [id number] [address] [place] [phone] Oct, [facility] [address] [facility] [id number] [address] [place] [id number] Oct, Generalized anxiety disorder 300.02 [facility] [address] [id number] [address] [place] [id number] Oct, Generalized anxiety disorder 300.[address] [facility] [address] [id number] [address] [place] [id number] Aug, [facility] [address] [id number] [address] [place] [id number] Aug, [facility] [address] [id number] [address] [place] [address], [place] [address] Jul, [facility] [address] [id number] [address] [place] [address], [place] [address] Jul, [facility] [address] [id number] [address] [place] [address], [place] [address] Jun, [facility] [address] [id number] [address] [place] [address], [place] [address] Jun, [facility] [address] [id number] [address] [place] [address], [place] [address] Jun, [facility] [address] [id number] [address] [place] [address], [place] [address] Jun, [facility] [address] [id number] [address] [place] [address], [place] [address] Jun, [facility] [address] [id number] [address] [place] [address], [place] [address] May, [facility] [address] [id number] [address] [place] [address], [place] [address] May, [facility] [address] [id number] [address] [place] [address], [place] [address] Apr, [facility] [address] [id number] [address] [place] [address], [place] [address] Apr, [facility] [address] [id number] [address] [place] [address], [place] [address] 18 Apr, 2013 [facility] [address] [id number] [address] [place] [address], [place] [address] 18 Apr, 2013 [facility] [address] [id number] [address] [place] [address], [place] [address] 17 Apr, 2013 [facility] [address] [id number] [address] [place] [address], [place] [address] Apr, [facility] [address] [id number] [address] [place] [address], [place] [address] Apr, [facility] [address] [id number] [address] [place] [address], [place] [address] Apr, [facility] [address] [id number] [address] [place] [address], [place] [address] Feb, [facility] [address] [id number] [address] [place] [address], [place] [address] Feb, [facility] [address] [id number] [address] [place] [address], [place] [address] Jan, [facility] [address] [id number] [address] [place] [address], [place] [address] Jan, [facility] [address] [id number] [address] [place] [address], [place] [address] Dec, [facility] [address] [id number] [address] [place] [address], [place] [address] Dec, [facility] [address] [id number] [address] [place] [address], [place] [address] Dec, [facility] [address] [id number] [address] [place] [address], [place] [address] Nov, [facility] [address] [id number] [address] [place] [address], [place] [address] Nov, [facility] [address] [id number] [address] [place] [address], [place] [address] Nov, [facility] [address] [id number] [address] [place] [address], [place] [address] Oct, [facility] [address] [id number] [address] [place] [address], [place] [address] Oct, [facility] [address] [id number] [address] [place] [address], [place] [address] Oct, [facility] [address] [id number] [address] [place] [address], [place] [address] September, [facility] [address] [id number] [address] [place] [address], [place] [address] September, [facility] [address] [id number] [address] [place] [address], [place] [address] September, [facility] [address] [id number] [address] [place] [address], [place] [address] Aug, [facility] [address] [id number] [address] [place] [address], [place] [address] Aug, [facility] [address] [id number] [address] [place] [address], [place] [address] Aug, [facility] [address] [id number] [address] [place] [address], [place] [address] 16 Aug, 2011 [facility] [address] [id number] [address] [place] [address], [place] [address] Jul, [facility] [address] [id number] [address] [place] [address], [place] [address] Jun, [facility] [address] [id number] [address] [place] [address], [place] [address] 14 Jun, 2011 [facility] [address] [id number] [address] [place] [address], [place] [address] 13 Jun, 2011 [facility] [address] [id number] [address] [place] [address], [place] [id number] 07 Jun, 2011 [facility] [address] [id number] [address] [place] [address], [place] [address] 03 Jun, 2011 [facility] [address] [id number] [address] [place] [address], [place] [address] May, [facility] [address] [id number] [address] [place] [address], [place] [address] May, [facility] [address] [id number] [address] [place] [address], [place] [address] May, [facility] [address] [id number] [address] [place] [address], [place] [address] May, [facility] [address] [id number] [address] [place] [address], [place] [address] Apr, [facility] [address] [id number] [address] [place] [address], [place] [address] Apr, [facility] [address] [id number] [address] [place] [address], [place] [address] Apr, [facility] [address] [id number] [address] [place] [address], [place] [address] Mar, [facility] [address] [id number] [address] [place] [address], [place] [address] Mar, [facility] [address] [id number] [address] [place] [address], [place] [address] Mar, [facility] [address] [id number] [address] [place] [address], [place] [address] Feb, [facility] [address] [id number] [address] [place] [address], [place] [address] Feb, [facility] [address] [id number] [address] [place] [address], [place] [address] Feb, [facility] [address] [id number] [address] [place] [address], [place] [address] Nov, [facility] [address] [id number] [address] [place], [place] [address], [place] [address] September, [facility] [address] [id number] [address] [place] [address], [place] [address] Aug, [facility] [address] [id number] [address] [place] [address], [place] [id number] 14 Jul, 2010 [facility] [address] [id number] [address] [place] [address], [place] [id number] May, [facility] [address] [id number] [address] [place] [address], [place] [address] Apr, [facility] [address] [facility] [id number] [address] [place] [id number] Apr, [facility] [address] [facility] [id number] [address] [place] [id number] Apr, [facility] [address] [facility] [id number] [address] [place] [id number] Apr, [facility] [address] [facility] [id number] [address] [place] [id number] Apr, IMMUNIZATIONS No Known Immunizations SOCIAL HISTORY Never Assessed [facility] PLAN OF CARE VITAL SIGNS MEDICATIONS Medication Instructions Dosage Frequency Start Date End Date Duration S tatus Lorazepam 2 MG Orally in the AM [...]
--- OUTSIDE RECORDS SUMMARY | 2019-07-17 11:08 | XMS REPORT ---
Author Author Sujey GANDHI Organization [facility] [place] Address [address] [place] [address] Care Team Providers Care Position Classification Specialist Name Role Phone WHIT GANDHI Unavailable PROBLEMS Type Condition ICD9-CM Code UNG13-EV Code Onset Dates Condition S tatus SNOMED Code Problem Back pain M54.9 Active 387601944 Problem Diabetes E11.9 Active 21413516 Problem GERD (gastroesophageal reflux disease) K21.9 Active 977787816 Problem Hypertension I10 Active 6997889 3 Problem Anxiety disorder, unspecified F41.9 Active 680312093 Problem Other bipolar disorder F31.89 Active 62362695 Problem Fibromyalgia M79.7 Active 5637310 7 Problem Panic disorder with agoraphobia F40.01 Active 42981037 Problem Panlobular emphysema J43.1 Active 8207942 Problem Chronic obstructive pulmonary disease, unspecified J44.9 Active 43459245 Problem Akathisia G25.71 Active 283075067 Problem Lumbago with sciatica, left side M54.42 Active 992874677 Problem Migraine without aura and without status migrain osus, not intractable G43.009 Active 616441973 Problem Fibrocystic disease of right breast N60.11 Active 24230920 Problem Fibrocystic disease of left breast N60.12 Active 91191042 Problem Slow transit constipation K59.01 Acti ve 19722842 Problem Essential tremor G25.0 Active 609 858659 Problem Bipolar 1 disorder, depressed, moderate F31.32 Active 16929001 Problem Other chronic pain G89.29 Active 8 4872004 Problem Lumbago with sciatica, right side M54.41 Active 012513138 Problem Irritable bowel syndrome with constipation K58.1 Active 091579924 Problem Arthritis M19.90 Active 6775847 Problem Schizoaffective disorder, bipolar type F25.0 Active 45777952 Problem Irritable bowel syndrome with both constipation and diarrh ea K58.2 Active 29714784 Problem Attention deficit hyperactiv ity disorder (ADHD), predominantly inattentive type F90.0 Active 07224735 Problem Bipolar I disorder with depression F31.9 Active 61109485 Problem Chronic post-traumatic stress disorder (PTSD) F43. 12 Active 528733649 Problem Bipolar affective disorder, remission status unspecified F31.9 Active 63432406 Problem Mild persistent asthma without complication J45.30 Active 049031375 Problem Moderate persistent asthma without complication J4 5.40 Active 976350293 Problem Acute non-recurrent maxillary sinusitis J01.00 Active 92214808 Problem Bipolar 1 disorder, depressed, partial remission F 31.75 Active 43860498 ALLERGIES No Information ENCOUNTERS Encounter Location Date Diagnosis [facility] [place] [address] [facility] [id number] [address] [place] [phone] Mar, [facility] [place] [address] [facility] [id number] [address] [place] [id number] Dec, [place] [address] [address] [facility] [id number] [address] [place] [phone] Nov, Bipolar 1 disorder, depresse d, partial remission F31.75 and Panic disorder with agoraphobia F40.01 [facility] [place] [address] [facility] [id number] [address] [place] [phone] Nov, Panlobular emphysema J43.1 [facility] [place] [address] [facility] [id number] [address] [place] [address] Nov, Cerebrovascular accident (CV A) due to occlusion of right cerebellar artery I63.541 and Acute non-recurrent maxillary sinusitis J01.00 [facility] [place] [address] [facility] [id number] [address] [place] [phone] Nov, Panlobular emphysema J43.1 [facility] [place] [address] [facility] [id number] [address] [place] [phone] Nov, [facility] [place] [address] [facility] [id number] [address] [place] [phone] Nov, [facility] [place] [address] [facility] [id number] [address] [place] [phone] Nov, [facility] [place] [address] [facility] [id number] [address] [place] [phone] Nov, [facility] [place] [address] [facility] [id number] [address] [place] [id number] Nov, [facility] [place] [address] [facility] [id number] [address] [place] [phone] Nov, [facility] [place] [address] [facility] [id number] [address] [place] [phone] Nov, [facility] [place] [address] [facility] [id number] [address] [place] [phone] Nov, Mild persistent asthma witho ut complication J45.30 and Irritable bowel syndrome with both constipation and diarrhea K58.2 [facility] [place] [address] [facility] [id number] [address] [place] [phone] Nov, [facility] [place] [address] [facility] [id number] [address] [place] [id number] Oct, [facility] [place] [address] [facility] [id number] [address] [place] [phone] Oct, [facility] [place] [address] [facility] [id number] [address] [place] [phone] Oct, Type 2 diabetes mellitus wit h diabetic neuropathy, unspecified 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 teacher insulin use E11.40 ; Diabetes E11.9 ; Slow transit constipation K59.01 ; Edema of both legs R60.0 and Dysfunction of right eustachian tube H69.81 [facility] [place] [address] [id number] [address] [place] [phone] Oct, Frequent headaches R51 [facility] [place] [address] [facility] [id number] [address] [place] [phone] Oct, [facility] [place] [address] [facility] [id number] [address] [place] [id number] Oct, [facility] [place] [address] [facility] [id number] [address] [place] [phone] Oct, [facility] [place] [address] [facility] [id number] [address] [place] [phone] Oct, [facility] [place] [address] [facility] [id number] [address] [place] [phone] Oct, [facility] [place] [address] [facility] [id number] [address] [place] [phone] Oct, [facility] [place] [address] [facility] [id number] [address] [place] [phone] Oct, [facility] [place] [address] [facility] [id number] [address] [place] [id number] Oct, [facility] [place] [address] [facility] [id number] [address] [place] [phone] September, Frequent headaches R51 [facility] [place] [address] [facility] [id number] [address] [place] [address] September, Bilateral otitis media with effusion H65.93 ; Dizziness R42 and Essential tremor G25.0 [facility] [place] [address] [facility] [id number] [address] [place] [phone] September, Chronic obstructive pulmonar y disease, unspecified COPD type J44.9 [facility] [place] [address] [facility] [id number] [address] [place] [phone] September, Chronic obstructive pulmonar y disease, unspecified COPD type J44.9 [facility] [place] [address] [facility] [id number] [address] [place] [phone] September, Migraine without aura and wi thout status migrainosus, not intractable G43.009 [facility] [place] [address] [facility] [id number] [address] [place] [id number] September, [facility] [place] [address] [facility] [id number] [address] [place] [phone] September, [facility] [place] [address] [facility] [id number] [address] [place] [phone] September, [place] [address] [address] [facility] [id number] [address] [place] [phone] September, Frequent headaches R51 [place] [address] [address] [facility] [id number] [address] [place] [phone] Aug, [place] [address] [address] [facility] [id number] [address] [place] [phone] Aug, Breast mass, right N63.10 [place] [address] [address] [facility] [id number] [address] [place] [id number] Aug, Breast lump N63.0 [place] [address] [address] [facility] [id number] [address] [place] [phone] Aug, [place] [address] [address] [place] [id number] [place] [phone] Aug, Bipolar affective disorder, remission status unspecified F31.9 and Diabetes E11.9 [place] [address] [address] [place] [id number] [address] [place] [id number] Aug, Diabetes E11.9 ; Schizoaffec tive disorder, bipolar type F25.0 ; Pharyngitis due to other organism J02.8 ; Panlobular emphysema J43.1 and Irritable bowel syndrome with both constipation and diarrhea K58.2 [place] [id number] [place] [phone] Aug, Abnormal mammogram R92.8 [place] [address] [address] [place] [id number] [address] [place] [phone] Aug, [place] [address] [address] [place] [id number] [address] [place] [id number] Aug, Bipolar 1 disorder, depresse d, moderate F31.32 ; Panic disorder with agoraphobia F40.01 and Chronic post-traumatic stress disorder (PTSD) F43.12 [place] [address] [address] [place] [id number] [address] [place] [phone] Aug, [place] [address] [address] [place] [id number] [address] [place] [phone] Aug, [facility] [place] [address] [id number] [address] [place] [phone] Aug, [facility] [place] [address] [facility] [id number] [address] [place] [id number] Jul, [facility] [place] [address] [facility] [id number] [address] [place] [phone] Jul, Mild persistent asthma witho ut complication J45.30 [facility] [place] [address] [id number] [address] [place] [phone] 19 Jul, 2017 Mild persistent asthma witho ut complication J45.30 [facility] [place] [address] [facility] [id number] [address] [place] [phone] 15 Jul, 2017 Bipolar affective disorder, remission status unspecified F31.9 ; Diabetes E11.9 and Irritable bowel syndrome with constipation K58.1 [facility] [place] [address] [facility] [id number] [address] [place] [phone] Jul, [facility] [place] [address] [facility] [id number] [address] [place] [id number] Jul, [facility] [place] [address] [facility] [id number] [address] [place] [id number] Jul, Frequent headaches R51 [facility] [place] [address] [facility] [id number] [address] [place] [id number] Jul, [facility] [place] [address] [facility] [id number] [address] [place] [phone] Jul, [facility] [place] [address] [facility] [id number] [address] [place] [id number] Jul, [facility] [place] [address] [facility] [id number] [address] [place] [id number] Jul, Frequent headaches R51 ; Fib rocystic disease of left breast N60.12 ; Fibrocystic disease of right breast N60.11 and Diabetes E11.9 [facility] [place] [address] [facility] [id number] [address] [place] [phone] 02 Jul, 2017 [facility] [place] [address] [facility] [id number] [address] [place] [phone] Jul, [facility] [place] [address] [facility] [id number] [address] [place] [phone] 21 Jun, 2017 Exudative tonsillitis J03.90 [facility] [place] [address] [facility] [id number] [address] [place] [id number] 20 Jun, 2017 [facility] [place] [address] [facility] [id number] [address] [place] [phone] 19 Jun, 2017 [facility] [place] [address] [id number] 15 Jun, 2017 Mild persistent asthma witho ut complication J45.30 ; Chronic obstructive pulmonary disease, unspecified COPD type J44.9 and Exudative tonsillitis J03.90 [facility] [place] [address] [place] [id number] 13 Jun, 2017 Encounter for immunization Z 23 [facility] [place] [address] [place] [id number] [address] [place] [phone] 12 Jun, 2017 [facility] [place] [address] [place] [id number] [address] [place] [phone] 12 Jun, 2017 [facility] [place] [address] [place] [phone] 09 Jun, 2017 [facility] [address] [facility] [id number] [address] [place] [id number] 06 Jun, 2017 Tonsillitis J03.90 [facility] [place] [address] [facility] [id number] [address] [place] [phone] 05 Jun, 2017 [facility] [place] [address] [facility] [id number] [address] [place] [id number] 03 Jun, 2017 Acute non-recurrent maxillar y sinusitis J01.00 [facility] [place] [address] [place] [phone] Jun, [facility] [place] [address] [id number] May, [facility] [place] [address] [place] [id number] [address] [place] [id number] May, [facility] [place] [address] [id number] May, GERD (gastroesophageal reflu x disease) K21.9 [facility] [place] [address] [address] May, Migraine without aura and wi thout status migrainosus, not intractable G43.009 [place] [address] [address] May, [place] [address] [id number] May, [facility] [place] [address] [id number] May, Panlobular emphysema J43.1 a nd Acute non-recurrent maxillary sinusitis J01.00 [place] [address] [address] May, Bipolar 1 disorder, depresse d, moderate F31.32 ; Panic disorder with agoraphobia F40.01 and Akathisia G25.71 [facility] [place] [address] [id number] Apr, [place] [address] [id number] Apr, [place] [address] [address] Apr, Acute non-recurrent maxillar y sinusitis J01.00 [place] [address] [address] Apr, Panlobular emphysema J43.1 [facility] [place] [address] [facility] [id number] [address] [place] [address] Apr, [facility] [address] [facility] [id number] [address] [place] [phone] Apr, Sore throat J02.9 and Exudat minoo tonsillitis J03.90 [facility] [place] [address] [facility] [id number] [address] [place] [phone] Mar, [facility] [place] [address] [facility] [id number] [address] [place] [id number] Mar, Acute non-recurrent maxillar y sinusitis J01.00 [place] [address] [address] [facility] [id number] [address] [place] [phone] Mar, [place] [address] [address] [place] [id number] [address] [place] [phone] Mar, Panlobular emphysema J43.1 a nd Diabetes E11.9 [facility] [place] [address] [facility] [id number] [address] [place] [phone] Mar, [facility] [address] [facility] [id number] [address] [place] [phone] Feb, Wheezing R06.2 and Acute rec urrent pansinusitis J01.41 [facility] [place] [address] [facility] [id number] [address] [place] [id number] Feb, [facility] [place] [address] [facility] [id number] [address] [place] [phone] Feb, Acute non-recurrent maxillar y sinusitis J01.00 [facility] [place] [address] [facility] [id number] [address] [place] [phone] Feb, Chronic obstructive pulmonar y disease, unspecified J44.9 [facility] [place] [address] [facility] [id number] [address] [place] [phone] Feb, Hypoxemia R09.02 and Chronic obstructive pulmonary disease, unspecified J44.9 [facility] [place] [address] [facility] [id number] [address] [place] [phone] 28 Jan, 2017 Bipolar 1 disorder, depresse d, moderate F31.32 ; Panic disorder with agoraphobia F40.01 ; Chronic post-traumatic stress disorder (PTSD) F43.12 ; Diabetes E11.9 and Moderate persistent asthma without complication J45.40 [facility] [place], [facility] [address] [id number] [address] [place] [phone] 22 Jan, 2017 [facility] [place], [facility] [address] [id number] [address] [place] [phone] Jan, Acute non-recurrent maxillar y sinusitis J01.00 [place] [address] [address] [facility] [id number] [address] [place] [phone] Jan, [place] [address] [address] [facility] [id number] [address] [place] [phone] Jan, [facility] [place], [facility] [address] [facility] [id number] [address] [place] [phone] Jan, [facility] J[facility].40 and Hypoxemia R09.02 [place] [address] [address] [facility] [id number] [address] [place] [phone] Jan, Moderate persistent asthma w ithout complication J45.40 and Hypoxemia R09.02 [place] [address] [address] [facility] [id number] [address] [place] [phone] Jan, [place] [address] [address] [facility] [id number] [address] [place] [phone] Dec, Acute non-recurrent maxillar y sinusitis J01.00 [place] [address] [address] [facility] [id number] [address] [place] [phone] Dec, Chronic obstructive pulmonar y disease, unspecified J44.9 [facility] [place], [facility] [address] [facility] [id number] [address] [place] [phone] Dec, [place] [address] [address] [place] [id number] [address] [place] [phone] Dec, Mild persistent asthma witho ut complication J45.30 and Other chronic pain G89.29 [facility] [place], [facility] [address] [id number] [address] [place] [phone] Nov, [facility] [place], [facility] [address] [facility] [id number] [address] [place] [phone] Nov, Acute non-recurrent maxillar y sinusitis J01.00 [facility] [place] [address] [id number] [address] [place] [phone] Nov, [place] [address] [address] [facility] [id number] [address] [place] [phone] Nov, [place] [address] [address] [facility] [id number] [address] [place] [phone] Oct, [place] [address] [address] [facility] [id number] [address] [place] [phone] Oct, Bipolar 1 disorder, depresse d, partial remission F31.75 ; Panic disorder with agoraphobia F40.01 and Chronic post-traumatic stress disorder (PTSD) F43.12 [place] [address] [address] [facility] [id number] [address] [place] [id number] Oct, Acute non-recurrent maxillar y sinusitis J01.00 [place] [address] [address] [facility] [id number] [address] [place] [id number] Oct, [facility] [place] [address] [facility] [id number] [address] [place] [phone] Oct, Diabetes E11.9 [place] [address] [id number] [address] [place] [phone] September, Diabetes E11.9 [place] [address] [address] [facility] [id number] [address] [place] [phone] September, Diabetes E11.9 and Sinus tac hycardia R00.0 [place] [address] [address] [facility] [id number] [address] [place] [phone] September, [facility] [place] [address] [facility] [id number] [address] [place] [id number] September, [facility] [place] [address] [place] [id number] [address] [place] [phone] Aug, Diabetes E11.9 and Lumbago w ith sciatica, right side M54.41 [facility] [place] [address] [place] [id number] [address] [place] [id number] Aug, [facility] [place] [address] [place] [id number] [address] [place] [id number] Jul, Bipolar 1 disorder, depresse d, moderate F31.32 ; Panic disorder with agoraphobia F40.01 and Chronic post-traumatic stress disorder (PTSD) F43.12 [facility] [place] [address] [place] [id number] [address] [place] [id number] Jul, Sore throat J02.9 [facility] [place] [address] [place] [id number] [address] [place] [phone] Jul, [facility] [place] [address] [place] [id number] [address] [place] [phone] Jul, [facility] [place] [address] [place] [id number] [address] [place] [phone] Jul, [facility] [place] [address] [place] [id number] [address] [place] [phone] Jul, [facility] [place] [address] [facility] [id number] [address] [place] [id number] Jul, Sore throat J02.9 and Pharyn gitis, unspecified etiology J02.9 [facility] [place] [address] [facility] [id number] [address] [place] [phone] Jun, [facility] [place] [address] [place] [id number] [address] [place] [phone] Jun, Diabetes E11.9 [facility] [place] [address] [place] [id number] [address] [place] [id number] Jun, [facility] [place] [address] [id number] [address] [place] [id number] Jun, [facility] [place] [address] [id number] [address] [place] [phone] Jun, [facility] [place] [address] [id number] [address] [place] [phone] Jun, [facility] [place] [address] [id number] [address] [place] [phone] Jun, [facility] [place] [address] [id number] [address] [place] [id number] Jun, [facility] [place] [address] [id number] [address] [place] [phone] Jun, [facility] [place] [address] [id number] [address] [place] [phone] Jun, [facility] [place] [address] [id number] [address] [place] [phone] May, Diabetes E11.9 ; Bipolar I d isorder with depression F31.9 ; Other chronic pain G89.29 ; Acute recurrent maxillary sinusitis J01.01 and Anxiety disorder, unspecified F41.9 [facility] [place] [address] [id number] [address] [place] [phone] May, [facility] [place] [address] [id number] [address] [place] [phone] May, Diabetes E11.9 ; Bipolar I d isorder with depression F31.9 ; Anxiety disorder, unspecified F41.9 ; Other chronic pain G89.29 and Acute recurrent maxillary sinusitis J01.01 [facility] [place] [address] [id number] [address] [place] [id number] May, [facility] [place] [address] [id number] [address] [place] [phone] May, Attention deficit hyperactiv ity disorder (ADHD), predominantly inattentive type F90.0 [facility] [place] [address] [facility] [id number] [address] [place] [phone] May, [facility] [place] [address] [facility] [id number] [address] [place] [phone] Apr, Attention deficit hyperactiv ity disorder (ADHD), predominantly inattentive type F90.0 and Non-seasonal allergic rhinitis due to other allergic trigger J30.89 [facility] [place] [address] [id number] [address] [place] [phone] Apr, Bipolar 1 disorder, depresse d, moderate F31.32 ; Panic disorder with agoraphobia F40.01 and Chronic post-traumatic stress disorder (PTSD) F43.12 [place] [address] [address] [place] [id number] [address] [place] [phone] Apr, Dental examination Z01.20 [place] [address] [address] [facility] [id number] [address] [place] [phone] Mar, [place] [address] [id number] [address] [place] [phone] Mar, [place] [address] [address] [place] [id number] [address] [place] [phone] Mar, Bipolar I disorder with depr ession F31.9 and Anxiety disorder, unspecified F41.9 [place] [address] [address] [facility] [id number] [address] [place] [id number] 08 Mar, 2016 Panic disorder with agorapho syd F40.01 ; Bipolar 1 disorder, depressed, moderate F31.32 and Chronic post-traumatic stress disorder (PTSD) F43.12 [place] [address] [address] [facility] [id number] [address] [place] [phone] 04 Mar, 2016 [place] [address] [address] [facility] [id number] [address] [place] [phone] 02 Mar, 2016 Dental caries K02.9 [place] [address] [address] [place] [id number] [address] [place] [id number] 24 Feb, 2016 Lumbago with sciatica, left side M54.42 ; Lumbago with sciatica, right side M54.41 and Other chronic pain G89.29 [facility] [place] [address] [place] [id number] [address] [place] [phone] 17 Feb, 2016 [place] [address] [id number] 14 Feb, 2016 [facility] [place] [address] [id number] 13 Feb, 2016 Bipolar I disorder with depr ession F31.9 ; PTSD (post-traumatic stress disorder) F43.10 and Mood disorder F39 [place] [address] [address] [place] [id number] [place] [phone] Feb, [place] [address] [id number] Feb, Dental examination Z01.20 [place] [address] [id number] Feb, [facility] [address] [place] [id number] [place] [id number] Feb, Acute bronchitis, unspecifie d organism J20.9 [place] [address] [address] [place] [id number] [address] [place] [phone] Jan, Mood disorder F39 ; Migraine without aura and without status migrainosus, not intractable G43.009 ; Irritable bowel syndrome, unspecified type K58.9 ; Diabetes E11.9 and Encounter for immunization Z23 [place] [address] [address] [place] [id number] [place] [id number] 15 Jan, 2016 [facility] [place] [address] [place] [id number] [address] [place] [phone] 06 Jan, 2016 [facility] [place] [address] [id number] Jan, [facility] [place] [address] [id number] [address] [place] [phone] Jan, [facility] [place] [address] [facility] [id number] [address] [place] [phone] Jan, [facility] [place] [address] [facility] [id number] [address] [place] [phone] Dec, Bipolar I disorder with depr ession F31.9 ; PTSD (post-traumatic stress disorder) F43.10 and Panic disorder with agoraphobia F40.01 [facility] [place] [address] [facility] [id number] [address] [place] [phone] Dec, Chronic obstructive pulmonar y disease, unspecified COPD type J44.9 ; Tremor R25.1 and Anxiety F41.9 [facility] [place] [address] [facility] [id number] [address] [place] [phone] Dec, [facility] [place] [address] [facility] [id number] [address] [place] [phone] Nov, Tremors of nervous system R2 5.1 and Cramping of feet R25.2 [facility] [place] [address] [facility] [id number] [address] [place] [phone] Nov, [facility] [place] [address] [facility] [id number] [address] [place] [phone] Nov, [facility] [place] [address] [facility] [id number] [address] [place] [id number] Oct, Chronic obstructive pulmonar y disease, unspecified J44.9 [facility] [place] [address] [facility] [id number] [address] [place] [phone] Oct, [facility] [place] [address] [facility] [id number] [address] [place] [id number] Oct, Tremor R25.1 [facility] [place] [address] [facility] [id number] [address] [place] [phone] Oct, Bipolar I disorder with depr ession F31.9 ; Diabetes E11.9 ; PTSD (post-traumatic stress disorder) F43.10 and Panic disorder with agoraphobia F40.01 [facility] [place] [address] [facility] [id number] [address] [place] [phone] Oct, Mood disorder F39 [facility] [place] [address] [facility] [id number] [address] [place] [phone] September, [facility] [place] [address] [facility] [id number] [address] [place] [phone] September, Diabetes E11.9 ; Bipolar I d isorder with depression F31.9 ; PTSD (post-traumatic stress disorder) F43.10 and Panic disorder with agoraphobia F40.01 [place] [address] [address] [facility] [id number] [address] [place] [phone] September, Mood disorder F39 ; Schizoaf fective disorder, unspecified type F25.9 ; Arthritis M19.90 ; Tremor R25.1 ; Acute non-recurrent frontal sinusitis J01.10 and Blood in stool K92.1 [place] [id number] [facility] [id number] [address] [place] [phone] September, [place] [address] [address] [facility] [id number] [address] [place] [phone] September, Chronic obstructive pulmonar y disease, unspecified J44.9 [place] [address] [address] [facility] [id number] [address] [place] [id number] September, Diabetes E11.9 [facility] [place] [address] [facility] [id number] [address] [place] [phone] Aug, Other bipolar disorder F31.8 9 and Anxiety disorder, unspecified F41.9 [place] [id number] [facility] [id number] [address] [place] [phone] Aug, [place] [id number] [facility] [id number] [address] [place] [phone] Aug, Diabetes E11.9 [place] [address] [id number] [address] [place] [phone] 18 Aug, 2015 [facility] [place] [address] [id number] [address] [place] [phone] 14 Aug, 2015 Diabetes E11.9 ; Fatigue R53 .83 and Dizziness R42 [facility] [place] [address] [id number] [address] [place] [phone] Aug, Other bipolar disorder F31.8 9 [facility] [place] [address] [id number] [address] [place] [phone] Aug, Generalized anxiety disorder F41.1 [facility] [place] [address] [id number] [address] [place] [phone] Aug, Other bipolar disorder F31.8 9 and Anxiety disorder, unspecified F41.9 [facility] [place] [address] [id number] [address] [place] [phone] Aug, [facility] [place] [address] [id number] [address] [place] [id number] Jul, [facility] [place] [address] [id number] [address] [place] [id number] 24 Jul, 2015 [facility] [place] [address] [id number] [address] [place] [phone] Jul, Bronchitis J40 [facility] [place] [address] [id number] [address] [place] [phone] Jul, Anxiety disorder F41.9 [facility] [place] [address] [id number] [address] [place] [phone] Jul, Other bipolar disorder F31.8 9 and Anxiety disorder, unspecified F41.9 [facility] [place] [address] [id number] [address] [place] [phone] 18 Jul, 2015 Other bipolar disorder F31.8 9 and Fibromyalgia M79.7 [facility] [place] [address] [id number] [address] [place] [phone] 10 Jul, 2015 [facility] [place] [address] [place] [id number] [address] [place] [phone] Jul, [facility] [place] [address] [id number] Jul, [facility] [place] [address] [place] [id number] [place] [phone] Jul, Other bipolar disorder F31.8 9 and Anxiety disorder, unspecified F41.9 [facility] [place] [address] [place] [id number] [place] [phone] Jun, GERD (gastroesophageal reflu x disease) K21.9 [facility] [place] [address] [id number] Jun, [facility] [place] [address] [phone] May, [facility] [place] [address] [address] May, Diabetes E11.9 ; Back pain M 54.9 ; GERD (gastroesophageal reflux disease) K21.9 ; Hypertension I10 and Peripheral neuropathy G62.9 [facility] [place] [address] [id number] Mar, [facility] [place] [address] [address] Mar, [facility] [place] [address] [address] Mar, Acute sinusitis J01.90 and O titis media, left H66.92 [facility] [place] [address] [place] [id number] [address] [place] [id number] Feb, [facility] [place] [address] [id number] Feb, [facility] [place] [address] [id number] Feb, [facility] [place] [address] [place] [id number] [address] [place] [id number] Feb, [facility] [place] [address] [facility] [id number] [address] [place] [phone] Jan, [facility] [place] [address] [facility] [id number] [address] [place] [id number] Jan, Diabetes 250.00 and Back higinio n 724.5 [facility] [place] [address] [facility] [id number] [address] [place] [phone] Jan, [facility] [place] [address] [facility] [id number] [address] [place] [id number] Dec, Diabetes 250.00 ; Benign ess ential hypertension 401.1 and Allergic rhinitis 477.9 [facility] [place] [address] [place] [id number] [address] [place] [id number] Dec, [facility] [place] [address] [place] [id number] [address] [place] [id number] Dec, [facility] [place] [address] [id number] [address] [place] [phone] Dec, Psychosis 298.9 [facility], [place] [id number] [address] [place] [phone] Dec, Medication side effect 995.2 0 and Generalized anxiety disorder 300.02 [facility], [place] [address] [id number] [address] [place] [phone] Dec, Acquired cognitive dysfuncti on 294.9 [facility], [place] [address] [facility] [id number] [address] [place] [phone] Dec, [facility], [place] [id number] [address] [place] [id number] Dec, Unspecified myalgia and myos itis 729.1 and Generalized anxiety disorder 300.02 [facility], [place] [address] [id number] [address] [place] [phone] Nov, [facility], [place] [id number] [address] [place] [phone] Nov, [facility], [place] [address] [id number] [address] [place] [id number] Nov, [facility], [place] [address] [facility] [id number] [address] [place] [phone] Nov, Upper respiratory infection 465.9 and Chronic airway obstruction, not elsewhere classified 496 [facility], [place], [facility] [address] [id number] [address] [place] [phone] Nov, Hyponatremia 276.1 [facility], [place] [address] [id number] [address] [place] [phone] Oct, [facility], [place] [address] [facility] [id number] [address] [place] [phone] Oct, [facility], [place] [address] [facility] [id number] [address] [place] [phone] Oct, [facility], [place] [address] [id number] [address] [place] [phone] Oct, [facility], [place] [address] [id number] [address] [place] [phone] Oct, Hyponatremia 276.1 [facility], [place] [address] [facility] [id number] [address] [place] [id number] Oct, [facility], [place] [address] [facility] [id number] [address] [place] [id number] Oct, [facility], [place], [facility] [facility] [address] [facility] [id number] [address] [place] [address] Oct, Generalized anxiety disorder 300.02 [facility] [place] [address] [id number] [address] [place] [address] Oct, Generalized anxiety disorder 300.02 and Diabetes 250.00 [facility] [place] [address] [facility] [id number] [address] [place] [id number] 14 Aug, 2014 [facility] [place] [address] [facility] [id number] [address] [place] [phone] Aug, [facility] [address] [id number] [address] [place] [address], [place] [address] Jul, [facility] [address] [id number] [address] [place] [address], [place] [address] Jul, [facility] [address] [id number] [address] [place] [address], [place] [address] Jun, [facility] [address] [id number] [address] [place] [address], [place] [address] Jun, [facility] [address] [id number] [address] [place] [address], [place] [address] Jun, [facility] [address] [id number] [address] [place] [address], [place] [address] Jun, [facility] [address] [id number] [address] [place] [address], [place] [address] Jun, [facility] [address] [id number] [address] [place] [address], [place] [address] May, [facility] [address] [id number] [address] [place] [address], [place] [address] May, [facility] [address] [id number] [address] [place] [address], [place] [address] Apr, [facility] [address] [id number] [address] [place] [address], [place] [address] Apr, [facility] [address] [id number] [address] [place] [address], [place] [address] 18 Apr, 2013 [facility] [address] [id number] [address] [place] [address], [place] [address] 18 Apr, 2013 [facility] [address] [id number] [address] [place] [address], [place] [address] Apr, [facility] [address] [id number] [address] [place] [address], [place] [address] Apr, [facility] [address] [id number] [address] [place] [address], [place] [address] Apr, [facility] [address] [id number] [address] [place] [address], [place] [address] Apr, [facility] [address] [id number] [address] [place] [address], [place] [address] Feb, [facility] [address] [id number] [address] [place] [address], [place] [address] Feb, [facility] [address] [id number] [address] [place] [address], [place] [address] Jan, [facility] [address] [id number] [address] [place] [address], [place] [address] Jan, [facility] [address] [id number] [address] [place] [address], [place] [address] Dec, [facility] [address] [id number] [address] [place] [address], [place] [address] Dec, [facility] [address] [id number] [address] [place] [address], [place] [address] Dec, [facility] [address] [id number] [address] [place] [address], [place] [address] Nov, [facility] [address] [id number] [address] [place] [address], [place] [address] Nov, [facility] [address] [id number] [address] [place] [address], [place] [address] Nov, [facility] [address] [id number] [address] [place] [address], [place] [address] Oct, [facility] [address] [id number] [address] [place] [address], [place] [address] Oct, [facility] [address] [id number] [address] [place] [address], [place] [address] Oct, [facility] [address] [id number] [address] [place] [address], [place] [address] September, [facility] [address] [id number] [address] [place] [address], [place] [address] September, [facility] [address] [id number] [address] [place] [address], [place] [address] September, [facility] [address] [id number] [address] [place] [address], [place] [address] Aug, [facility] [address] [id number] [address] [place] [address], [place] [address] Aug, [facility] [address] [id number] [address] [place] [address], [place] [address] Aug, [facility] [address] [id number] [address] [place] [address], [place] [address] 16 Aug, 2011 [facility] [address] [id number] [address] [place] [address], [place] [address] Jul, [facility] [address] [id number] [address] [place] [address], [place] [address] Jun, [facility] [address] [id number] [address] [place] [address], [place] [address] 14 Jun, 2011 [facility] [address] [id number] [address] [place] [address], [place] [address] Jun, [facility] [address] [id number] [address] [place] [address], [place] [address] Jun, [facility] [address] [id number] [address] [place] [address], [place] [address] Jun, [facility] [address] [id number] [address] [place] [address], [place] [address] May, [facility] [address] [id number] [address] [place] [address], [place] [address] May, [facility] [address] [id number] [address] [place] [address], [place] [address] May, [facility] [address] [id number] [address] [place] [address], [place] [address] 04 May, 2011 [facility] [address] [id number] [address] [place] [address], [place] [address] Apr, [facility] [address] [id number] [address] [place] [address], [place] [address] Apr, [facility] [address] [id number] [address] [place] [address], [place] [address] Apr, [facility] [address] [id number] [address] [place] [address], [place] [address] Mar, [facility] [address] [id number] [address] [place] [address], [place] [address] Mar, [facility] [address] [id number] [address] [place] [address], [place] [address] Mar, [facility] [address] [id number] [address] [place] [address], [place] [address] Feb, [facility] [address] [id number] [address] [place] [address], [place] [address] Feb, [facility] [address] [id number] [address] [place] [address], [place] [address] Feb, [facility] [address] [id number] [address] [place] [address], [place] [address] Nov, [facility] [address] [id number] [address] [place] [address], [place] [address] September, [facility] [address] [id number] [address] [place] [address], [place] [address] Aug, [facility] [address] [id number] [address] [place] [address], [place] [address] 14 Jul, 2010 [facility] [address] [id number] [address] [place] [address], [place] [address] May, [facility] [address] [id number] [address] [place] [address], [place] [address] Apr, [facility] [place] [address] [facility] [id number] [address] [place] [address] Apr, [facility] [place] [address] [facility] [id number] [address] [place] [id number] Apr, [facility] [place] [address] [facility] [id number] [address] [place] [address] Apr, [facility] [place] [address] [facility] [id number] [address] [place] [address] Apr, IMMUNIZATIONS No Known Immunizations SOCIAL HISTORY Never Assessed REASON FOR VISIT Controlled Med Refill 09/09/17 PLAN OF CARE VITAL SIGNS MEDICATIONS Medication Instructions Dosage Frequency Start Date End Date Duration S samantha Roberts 7.5-325 MG Orally 3 times a day 1 tablet as needed 8h September, 28 days Active RESULTS No Results [...]
--- OUTSIDE RECORDS SUMMARY | 2019-07-17 11:09 | XMS REPORT ---
Author Author Sujey GANDHI Organization [facility] Address [address] [place] [address] Care Team Providers Care Clinical Education Manager Name Role Phone WHIT GANDHI Unavailable PROBLEMS Type Condition ICD9-CM Code SOS71-WM Code Onset Dates Condition S tatus SNOMED Code Problem Back pain M54.9 Active 789650191 Problem Diabetes E11.9 Active 30274274 Problem GERD (gastroesophageal reflux disease) K21.9 Active 594374908 Problem Hypertension I10 Active 8046048 3 Problem Anxiety disorder, unspecified F41.9 Active 160434352 Problem Other bipolar disorder F31.89 Active 60277240 Problem Fibromyalgia M79.7 Active 6797442 7 Problem Panic disorder with agoraphobia F40.01 Active 78983774 Problem Panlobular emphysema J43.1 Active 3110188 Problem Chronic obstructive pulmonary disease, unspecified J44.9 Active 74644342 Problem Akathisia G25.71 Active 814079612 Problem Lumbago with sciatica, left side M54.42 Active 027781904 Problem Migraine without aura and without status migrain osus, not intractable G43.009 Active 637163219 Problem Fibrocystic disease of right breast N60.11 Active 72247767 Problem Fibrocystic disease of left breast N60.12 Active 25761054 Problem Slow transit constipation K59.01 Acti ve 06004588 Problem Essential tremor G25.0 Active 609 533787 Problem Bipolar 1 disorder, depressed, moderate F31.32 Active 32982307 Problem Other chronic pain G89.29 Active 8 5721661 Problem Lumbago with sciatica, right side M54.41 Active 106766265 Problem Irritable bowel syndrome with constipation K58.1 Active 414182473 Problem Arthritis M19.90 Active 9704230 Problem Schizoaffective disorder, bipolar type F25.0 Active 48334983 Problem Irritable bowel syndrome with both constipation and diarrh ea K58.2 Active 49620367 Problem Attention deficit hyperactiv ity disorder (ADHD), predominantly inattentive type F90.0 Active 72796710 Problem Bipolar I disorder with depression F31.9 Active 82267661 Problem Chronic post-traumatic stress disorder (PTSD) F43. 12 Active 830200276 Problem Bipolar affective disorder, remission status unspecified F31.9 Active 60888008 Problem Mild persistent asthma without complication J45.30 Active 042331125 Problem Moderate persistent asthma without complication J4 5.40 Active 061501017 Problem Acute non-recurrent maxillary sinusitis J01.00 Active 18566572 Problem Bipolar 1 disorder, depressed, partial remission F 31.75 Active 44607245 ALLERGIES No Information ENCOUNTERS Encounter Location Date Diagnosis [facility] [address] [facility] [id number] [address] [place] [phone] Mar, [facility] [address] [facility] [id number] [address] [place] [address] Dec, [place] [address] [facility] [id number] [address] [place] [address] Nov, Bipolar 1 disorder, depresse d, partial remission F31.75 and Panic disorder with agoraphobia F40.01 [facility] [address] [facility] [id number] [address] [place] [address] Nov, Panlobular emphysema J43.1 [facility] [address] [facility] [id number] [address] [place] [address] Nov, Cerebrovascular accident (CV A) due to occlusion of right cerebellar artery I63.541 and Acute non-recurrent maxillary sinusitis J01.00 [facility] [address] [facility] [id number] [address] [place] [address] Nov, Panlobular emphysema J43.1 [facility] [address] [facility] [id number] [address] [place] [address] Nov, [facility] [address] [facility] [id number] [address] [place] [address] Nov, [facility] [address] [facility] [id number] [address] [place] [phone] Nov, [facility] [address] [facility] [id number] [address] [place] [address] Nov, [facility] [address] [facility] [id number] [address] [place] [phone] Nov, [facility] [address] [facility] [id number] [address] [place] [phone] Nov, [facility] [address] [facility] [id number] [address] [place] [address] Nov, [facility] [address] [facility] [id number] [address] [place] [address] Nov, Mild persistent asthma witho ut complication J45.30 and Irritable bowel syndrome with both constipation and diarrhea K58.2 [facility] [address] [facility] [id number] [address] [place] [address] Nov, [facility] [address] [facility] [id number] [address] [place] [address] Oct, [facility] [address] [facility] [id number] [address] [place] [id number] Oct, [facility] [address] [facility] [id number] [address] [place] [address] Oct, Type 2 diabetes mellitus wit h diabetic neuropathy, unspecified whether keno terminal operator insulin use E11.40 ; Diabetes E11.9 ; Slow transit constipation K59.01 ; Edema of both legs R60.0 and Dysfunction of right eustachian tube H69.81 [facility] [address] [id number] [address] [place] [address] Oct, Frequent headaches R51 [facility] [address] [facility] [id number] [address] [place] [address] Oct, [facility] [address] [facility] [id number] [address] [place] [phone] Oct, [facility] [address] [facility] [id number] [address] [place] [address] Oct, [facility] [address] [facility] [id number] [address] [place] [address] Oct, [facility] [address] [facility] [id number] [address] [place] [address] Oct, [facility] [address] [facility] [id number] [address] [place] [address] Oct, [facility] [address] [facility] [id number] [address] [place] [phone] Oct, [facility] [address] [facility] [id number] [address] [place] [phone] Oct, [facility] [address] [facility] [id number] [address] [place] [address] September, Frequent headaches R51 [facility] [address] [facility] [id number] [address] [place] [id number] September, Bilateral otitis media with effusion H65.93 ; Dizziness R42 and Essential tremor G25.0 [facility] [address] [facility] [id number] [address] [place] [address] September, Chronic obstructive pulmonar y disease, unspecified COPD type J44.9 [facility] [address] [facility] [id number] [address] [place] [address] September, Chronic obstructive pulmonar y disease, unspecified COPD type J44.9 [facility] [address] [facility] [id number] [address] [place] [address] September, Migraine without aura and wi thout status migrainosus, not intractable G43.009 [facility] [address] [facility] [id number] [address] [place] [address] September, [facility] [address] [facility] [id number] [address] [place] [phone] September, [facility] [address] [facility] [id number] [address] [place] [phone] September, [place] [address] [facility] [id number] [address] [place] [address] September, Frequent headaches R51 [place] [address] [facility] [id number] [address] [place] [id number] Aug, [place] [address] [facility] [id number] [address] [place] [address] Aug, Breast mass, right N63.10 [place] [address] [facility] [id number] [address] [place] [address] Aug, Breast lump N63.0 [place] [address] [facility] [id number] [address] [place] [address] Aug, [place] [address] [place] [id number] [place] [address] Aug, Bipolar affective disorder, remission status unspecified F31.9 and Diabetes E11.9 [place] [address] [place] [id number] [address] [place] [address] Aug, Diabetes E11.9 ; Schizoaffec tive disorder, bipolar type F25.0 ; Pharyngitis due to other organism J02.8 ; Panlobular emphysema J43.1 and Irritable bowel syndrome with both constipation and diarrhea K58.2 [place] [address] [place] [address] Aug, Abnormal mammogram R92.8 [place] [address] [place] [id number] [address] [place] [id number] Aug, [place] [address] [place] [id number] [address] [place] [id number] Aug, Bipolar 1 disorder, depresse d, moderate F31.32 ; Panic disorder with agoraphobia F40.01 and Chronic post-traumatic stress disorder (PTSD) F43.12 [place] [address] [place] [id number] [address] [place] [phone] Aug, [place] [address] [place] [id number] [address] [place] [id number] Aug, [facility] [address] [id number] [address] [place] [address] Aug, [facility] [address] [facility] [id number] [address] [place] [address] Jul, [facility] [address] [facility] [id number] [address] [place] [address] Jul, Mild persistent asthma witho ut complication J45.30 [facility] [address] [id number] [address] [place] [id number] 19 Jul, 2017 Mild persistent asthma witho ut complication J45.30 [facility] [address] [facility] [id number] [address] [place] [phone] 15 Jul, 2017 Bipolar affective disorder, remission status unspecified F31.9 ; Diabetes E11.9 and Irritable bowel syndrome with constipation K58.1 [facility] [address] [facility] [id number] [address] [place] [id number] Jul, [facility] [address] [facility] [id number] [address] [place] [id number] Jul, [facility] [address] [facility] [id number] [address] [place] [address] Jul, Frequent headaches R51 [facility] [address] [facility] [id number] [address] [place] [address] Jul, [facility] [address] [facility] [id number] [address] [place] [address] Jul, [facility] [address] [facility] [id number] [address] [place] [address] Jul, [facility] [address] [facility] [id number] [address] [place] [address] Jul, Frequent headaches R51 ; Fib rocystic disease of left breast N60.12 ; Fibrocystic disease of right breast N60.11 and Diabetes E11.9 [facility] [address] [facility] [id number] [address] [place] [phone] 02 Jul, 2017 [facility] [address] [facility] [id number] [address] [place] [phone] Jul, [facility] [address] [facility] [id number] [address] [place] [phone] 21 Jun, 2017 Exudative tonsillitis J03.90 [facility] [address] [facility] [id number] [address] [place] [address] 20 Jun, 2017 [facility] [address] [facility] [id number] [address] [place] [phone] 19 Jun, 2017 [facility] [address] [id number] 15 Jun, 2017 Mild persistent asthma witho ut complication J45.30 ; Chronic obstructive pulmonary disease, unspecified COPD type J44.9 and Exudative tonsillitis J03.90 [facility] [address] [place] [phone] 13 Jun, 2017 Encounter for immunization Z 23 [facility] [address] [place] [id number] [address] [place] [address] 12 Jun, 2017 [facility] [address] [place] [id number] [address] [place] [phone] 12 Jun, 2017 [facility] [address] [place] [address] 09 Jun, 2017 [facility] [address] [facility] [id number] [address] [place] [phone] 06 Jun, 2017 Tonsillitis J03.90 [facility] [address] [facility] [id number] [address] [place] [phone] 05 Jun, 2017 [facility] [address] [facility] [id number] [address] [place] [phone] 03 Jun, 2017 Acute non-recurrent maxillar y sinusitis J01.00 [facility] [address] [place] [phone] Jun, [facility] [address] [id number] May, [facility] [address] [place] [id number] [address] [place] [phone] May, [facility] [address] [id number] May, GERD (gastroesophageal reflu x disease) K21.9 [facility] [address] [id number] May, Migraine without aura and wi thout status migrainosus, not intractable G43.009 [place] [address] [address] May, [place] [address] [address] May, [facility] [address] [id number] May, Panlobular emphysema J43.1 a nd Acute non-recurrent maxillary sinusitis J01.00 [place] [address] [id number] May, Bipolar 1 disorder, depresse d, moderate F31.32 ; Panic disorder with agoraphobia F40.01 and Akathisia G25.71 [facility] [address] [address] Apr, [place] [address] [id number] Apr, [place] [address] [address] Apr, Acute non-recurrent maxillar y sinusitis J01.00 [place] [address] [address] Apr, Panlobular emphysema J43.1 [facility] [address] [facility] [id number] [address] [place] [address] Apr, [facility] [address] [facility] [id number] [address] [place] [id number] Apr, Sore throat J02.9 and Exudat minoo tonsillitis J03.90 [facility] [address] [facility] [id number] [address] [place] [address] Mar, [facility] [address] [facility] [id number] [address] [place] [address] Mar, Acute non-recurrent maxillar y sinusitis J01.00 [place] [address] [facility] [id number] [address] [place] [address] Mar, [place] [address] [place] [id number] [address] [place] [address] Mar, Panlobular emphysema J43.1 a nd Diabetes E11.9 [facility] [address] [facility] [id number] [address] [place] [phone] Mar, [facility] [address] [facility] [id number] [address] [place] [address] Feb, Wheezing R06.2 and Acute rec urrent pansinusitis J01.41 [facility] [address] [facility] [id number] [address] [place] [phone] Feb, [facility] [address] [facility] [id number] [address] [place] [address] Feb, Acute non-recurrent maxillar y sinusitis J01.00 [facility] [address] [facility] [id number] [address] [place] [address] Feb, Chronic obstructive pulmonar y disease, unspecified J44.9 [facility] [address] [facility] [id number] [address] [place] [address] Feb, Hypoxemia R09.02 and Chronic obstructive pulmonary disease, unspecified J44.9 [facility] [address] [facility] [id number] [address] [place] [address] 28 Jan, 2017 Bipolar 1 disorder, depresse d, moderate F31.32 ; Panic disorder with agoraphobia F40.01 ; Chronic post-traumatic stress disorder (PTSD) F43.12 ; Diabetes E11.9 and Moderate persistent asthma without complication J45.40 [facility] [address] [id number] [address] [place] [phone] 22 Jan, 2017 [facility] [address] [id number] [address] [place] [address] Jan, Acute non-recurrent maxillar y sinusitis J01.00 [place] [address] [facility] [id number] [address] [place] [address] Jan, [place] [address] [facility] [id number] [address] [place] [address] Jan, [facility] [address] [facility] [id number] [address] [place] [address] Jan, Mod[facility] J[facility].40 and Hypoxemia R09.02 [place] [address] [facility] [id number] [address] [place] [address] Jan, Moderate persistent asthma w ithout complication J45.40 and Hypoxemia R09.02 [place] [address] [facility] [id number] [address] [place] [address] Jan, [place] [address] [facility] [id number] [address] [place] [address] Dec, Acute non-recurrent maxillar y sinusitis J01.00 [place] [address] [facility] [id number] [address] [place] [address] Dec, Chronic obstructive pulmonar y disease, unspecified J44.9 [facility] [address] [facility] [id number] [address] [place] [address] Dec, [place] [address] [place] [id number] [address] [place] [address] Dec, Mild persistent asthma witho ut complication J45.30 and Other chronic pain G89.29 [facility] [address] [id number] [address] [place] [address] Nov, [facility] [address] [facility] [id number] [address] [place] [address] Nov, Acute non-recurrent maxillar y sinusitis J01.00 [facility] [address] [id number] [address] [place] [address] Nov, [place] [address] [facility] [id number] [address] [place] [phone] Nov, [place] [address] [facility] [id number] [address] [place] [address] Oct, [place] [address] [facility] [id number] [address] [place] [address] Oct, Bipolar 1 disorder, depresse d, partial remission F31.75 ; Panic disorder with agoraphobia F40.01 and Chronic post-traumatic stress disorder (PTSD) F43.12 [place] [address] [facility] [id number] [address] [place] [address] Oct, Acute non-recurrent maxillar y sinusitis J01.00 [place] [address] [facility] [id number] [address] [place] [address] Oct, [facility] [address] [facility] [id number] [address] [place] [phone] Oct, Diabetes E11.9 [place] [address] [id number] [address] [place] [address] September, Diabetes E11.9 [place] [address] [facility] [id number] [address] [place] [address] September, Diabetes E11.9 and Sinus tac hycardia R00.0 [place] [address] [facility] [id number] [address] [place] [address] September, [facility] [address] [facility] [id number] [address] [place] [address] September, [facility] [address] [place] [id number] [address] [place] [address] Aug, Diabetes E11.9 and Lumbago w ith sciatica, right side M54.41 [facility] [address] [place] [id number] [address] [place] [address] Aug, [facility] [address] [place] [id number] [address] [place] [id number] Jul, Bipolar 1 disorder, depresse d, moderate F31.32 ; Panic disorder with agoraphobia F40.01 and Chronic post-traumatic stress disorder (PTSD) F43.12 [facility] [address] [place] [id number] [address] [place] [address] Jul, Sore throat J02.9 [facility] [address] [place] [id number] [address] [place] [address] Jul, [facility] [address] [place] [id number] [address] [place] [id number] Jul, [facility] [address] [place] [id number] [address] [place] [id number] Jul, [facility] [address] [place] [id number] [address] [place] [address] Jul, [facility] [address] [facility] [id number] [address] [place] [id number] Jul, Sore throat J02.9 and Pharyn gitis, unspecified etiology J02.9 [facility] [address] [facility] [id number] [address] [place] [address] Jun, [facility] [address] [place] [id number] [address] [place] [id number] Jun, Diabetes E11.9 [facility] [address] [place] [id number] [address] [place] [address] Jun, [facility] [address] [id number] [address] [place] [phone] Jun, [facility] [address] [id number] [address] [place] [phone] Jun, [facility] [address] [id number] [address] [place] [phone] Jun, [facility] [address] [id number] [address] [place] [phone] Jun, [facility] [address] [id number] [address] [place] [phone] Jun, [facility] [address] [id number] [address] [place] [id number] Jun, [facility] [address] [id number] [address] [place] [phone] Jun, [facility] [address] [id number] [address] [place] [id number] May, Diabetes E11.9 ; Bipolar I d isorder with depression F31.9 ; Other chronic pain G89.29 ; Acute recurrent maxillary sinusitis J01.01 and Anxiety disorder, unspecified F41.9 [facility] [address] [id number] [address] [place] [address] May, [facility] [address] [id number] [address] [place] [address] May, Diabetes E11.9 ; Bipolar I d isorder with depression F31.9 ; Anxiety disorder, unspecified F41.9 ; Other chronic pain G89.29 and Acute recurrent maxillary sinusitis J01.01 [facility] [address] [id number] [address] [place] [address] May, [facility] [address] [id number] [address] [place] [address] May, Attention deficit hyperactiv ity disorder (ADHD), predominantly inattentive type F90.0 [facility] [address] [facility] [id number] [address] [place] [address] May, [facility] [address] [facility] [id number] [address] [place] [address] Apr, Attention deficit hyperactiv ity disorder (ADHD), predominantly inattentive type F90.0 and Non-seasonal allergic rhinitis due to other allergic trigger J30.89 [facility] [address] [id number] [address] [place] [address] Apr, Bipolar 1 disorder, depresse d, moderate F31.32 ; Panic disorder with agoraphobia F40.01 and Chronic post-traumatic stress disorder (PTSD) F43.12 [place] [address] [place] [id number] [address] [place] [address] Apr, Dental examination Z01.20 [place] [address] [facility] [id number] [address] [place] [address] Mar, [facility] [address] [id number] [address] [place] [address] Mar, [facility] [place] [address] [place] [id number] [address] [place] [address] Mar, Bipolar I disorder with depr ession F31.9 and Anxiety disorder, unspecified F41.9 [place] [address] [facility] [id number] [address] [place] [address] 08 Mar, 2016 Panic disorder with agorapho syd F40.01 ; Bipolar 1 disorder, depressed, moderate F31.32 and Chronic post-traumatic stress disorder (PTSD) F43.12 [place] [address] [facility] [id number] [address] [place] [address] 04 Mar, 2016 [place] [address] [facility] [id number] [address] [place] [address] 02 Mar, 2016 Dental caries K02.9 [place] [address] [place] [id number] [address] [place] [address] 24 Feb, 2016 Lumbago with sciatica, left side M54.42 ; Lumbago with sciatica, right side M54.41 and Other chronic pain G89.29 [facility] [address] [place] [id number] [address] [place] [address] 17 Feb, 2016 [place] [address] [address] 14 Feb, 2016 [facility] [address] [address] 13 Feb, 2016 Bipolar I disorder with depr ession F31.9 ; PTSD (post-traumatic stress disorder) F43.10 and Mood disorder F39 [place] [address] [place] [id number] [place] [address] Feb, [place] [address] [address] Feb, Dental examination Z01.20 [place] [address] [address] Feb, [facility] [address] [place] [id number] [place] [address] Feb, Acute bronchitis, unspecifie d organism J20.9 [place] [address] [place] [id number] [address] [place] [address] Jan, Mood disorder F39 ; Migraine without aura and without status migrainosus, not intractable G43.009 ; Irritable bowel syndrome, unspecified type K58.9 ; Diabetes E11.9 and Encounter for immunization Z23 [place] [address] [place] [id number] [place] [phone] 15 Jan, 2016 [facility] [address] [place] [id number] [address] [place] [phone] 06 Jan, 2016 [facility] [address] [address] Jan, [facility] [address] [id number] [address] [place] [address] Jan, [facility] [address] [facility] [id number] [address] [place] [address] Jan, [facility] [address] [facility] [id number] [address] [place] [address] Dec, Bipolar I disorder with depr ession F31.9 ; PTSD (post-traumatic stress disorder) F43.10 and Panic disorder with agoraphobia F40.01 [facility] [address] [facility] [id number] [address] [place] [address] Dec, Chronic obstructive pulmonar y disease, unspecified COPD type J44.9 ; Tremor R25.1 and Anxiety F41.9 [facility] [address] [facility] [id number] [address] [place] [address] Dec, [facility] [address] [facility] [id number] [address] [place] [address] Nov, Tremors of nervous system R2 5.1 and Cramping of feet R25.2 [facility] [address] [facility] [id number] [address] [place] [address] Nov, [facility] [address] [facility] [id number] [address] [place] [address] Nov, [facility] [address] [facility] [id number] [address] [place] [address] Oct, Chronic obstructive pulmonar y disease, unspecified J44.9 [facility] [address] [facility] [id number] [address] [place] [address] Oct, [facility] [address] [facility] [id number] [address] [place] [address] Oct, Tremor R25.1 [facility] [address] [facility] [id number] [address] [place] [address] Oct, Bipolar I disorder with depr ession F31.9 ; Diabetes E11.9 ; PTSD (post-traumatic stress disorder) F43.10 and Panic disorder with agoraphobia F40.01 [facility] [address] [facility] [id number] [address] [place] [address] Oct, Mood disorder F39 [facility] [address] [facility] [id number] [address] [place] [address] September, [facility] [address] [facility] [id number] [address] [place] [address] September, Diabetes E11.9 ; Bipolar I d isorder with depression F31.9 ; PTSD (post-traumatic stress disorder) F43.10 and Panic disorder with agoraphobia F40.01 [place] [address] [facility] [id number] [address] [place] [address] September, Mood disorder F39 ; Schizoaf fective disorder, unspecified type F25.9 ; Arthritis M19.90 ; Tremor R25.1 ; Acute non-recurrent frontal sinusitis J01.10 and Blood in stool K92.1 [place] [id number] [facility] [id number] [address] [place] [address] September, [place] [address] [facility] [id number] [address] [place] [address] September, Chronic obstructive pulmonar y disease, unspecified J44.9 [place] [address] [facility] [id number] [address] [place] [address] September, Diabetes E11.9 [facility] [address] [facility] [id number] [address] [place] [address] Aug, Other bipolar disorder F31.8 9 and Anxiety disorder, unspecified F41.9 [place] [id number] [facility] [id number] [address] [place] [address] Aug, [place] [address] [facility] [id number] [address] [place] [address] Aug, Diabetes E11.9 [place] [address] [id number] [address] [place] [address] 18 Aug, 2015 [facility] [address] [id number] [address] [place] [address] 14 Aug, 2015 Diabetes E11.9 ; Fatigue R53 .83 and Dizziness R42 [facility] [address] [id number] [address] [place] [address] Aug, Other bipolar disorder F31.8 9 [facility] [address] [id number] [address] [place] [address] Aug, Generalized anxiety disorder F41.1 [facility] [address] [id number] [address] [place] [address] Aug, Other bipolar disorder F31.8 9 and Anxiety disorder, unspecified F41.9 [facility] [address] [id number] [address] [place] [address] Aug, [facility] [address] [id number] [address] [place] [address] Jul, [facility] [address] [id number] [address] [place] [address] 24 Jul, 2015 [facility] [address] [id number] [address] [place] [address] Jul, Bronchitis J40 [facility] [address] [id number] [address] [place] [address] Jul, Anxiety disorder F41.9 [facility] [address] [id number] [address] [place] [address] Jul, Other bipolar disorder F31.8 9 and Anxiety disorder, unspecified F41.9 [facility] [address] [id number] [address] [place] [address] 18 Jul, 2015 Other bipolar disorder F31.8 9 and Fibromyalgia M79.7 [facility] [address] [id number] [address] [place] [address] 10 Jul, 2015 [facility] [address] [place] [id number] [address] [place] [address] Jul, [facility] [address] [address] Jul, [facility] [address] [place] [id number] [place] [address] Jul, Other bipolar disorder F31.8 9 and Anxiety disorder, unspecified F41.9 [facility] [address] [place] [id number] [place] [address] Jun, GERD (gastroesophageal reflu x disease) K21.9 [facility] [address] [address] Jun, [facility] [address] [address] May, [facility] [address] [address] May, Diabetes E11.9 ; Back pain M 54.9 ; GERD (gastroesophageal reflux disease) K21.9 ; Hypertension I10 and Peripheral neuropathy G62.9 [facility] [address] [address] Mar, [facility] [address] [address] Mar, [facility] [address] [address] Mar, Acute sinusitis J01.90 and O titis media, left H66.92 [facility] [address] [place] [id number] [address] [place] [address] Feb, [facility] [address] [address] Feb, [facility] [address] [address] Feb, [facility] [address] [place] [id number] [address] [place] [address] Feb, [facility] [address] [facility] [id number] [address] [place] [address] Jan, [facility] [address] [facility] [id number] [address] [place] [address] Jan, Diabetes 250.00 and Back higinio n 724.5 [facility] [address] [facility] [id number] [address] [place] [address] Jan, [facility] [address] [facility] [id number] [address] [place] [address] Dec, Diabetes 250.00 ; Benign ess ential hypertension 401.1 and Allergic rhinitis 477.9 [facility] [address] [place] [id number] [address] [place] [address] Dec, [facility] [address] [place] [id number] [address] [place] [address] Dec, [facility] [address] [place] [id number] [address] [place] [address] Dec, Psychosis 298.9 [facility] [address] [place] [id number] [address] [place] [address] Dec, Medication side effect 995.2 0 and Generalized anxiety disorder 300.02 [facility] [address] [place] [id number] [address] [place] [address] Dec, Acquired cognitive dysfuncti on 294.9 [facility] [address] [facility] [id number] [address] [place] [address] Dec, [facility] [address] [place] [id number] [address] [place] [address] Dec, Unspecified myalgia and myos itis 729.1 and Generalized anxiety disorder 300.02 [facility] [address] [place] [id number] [address] [place] [address] Nov, [facility] [address] [place] [id number] [address] [place] [address] Nov, [facility] [address] [id number] [address] [place] [address] Nov, [facility] [address] [facility] [id number] [address] [place] [address] Nov, Upper respiratory infection 465.9 and Chronic airway obstruction, not elsewhere classified 496 [facility] [address] [id number] [address] [place] [address] Nov, Hyponatremia 276.1 [facility] [address] [id number] [address] [place] [address] Oct, [facility] [address] [facility] [id number] [address] [place] [address] Oct, [facility] [address] [facility] [id number] [address] [place] [address] Oct, [facility] [address] [id number] [address] [place] [address] Oct, [facility] [address] [id number] [address] [place] [address] Oct, Hyponatremia 276.1 [facility] [address] [facility] [id number] [address] [place] [address] Oct, [facility] [address] [facility] [id number] [address] [place] [address] Oct, [facility] [address] [facility] [id number] [address] [place] [address] Oct, Generalized anxiety disorder 300.02 [facility] [address] [id number] [address] [place] [address] Oct, Generalized anxiety disorder 300.02 and Diabetes 250.00 [facility] [address] [facility] [id number] [address] [place] [address] 14 Aug, 2014 [facility] [address] [facility] [id number] [address] [place] [address] Aug, [facility] [address] [id number] [address] [place] [address], [place] [address] Jul, [facility] [address] [id number] [address] [place] [address], [place] [address] Jul, [facility] [address] [id number] [address] [place] [address], [place] [address] Jun, [facility] [address] [id number] [address] [place] [address], [place] [address] Jun, [facility] [address] [id number] [address] [place] [address], [place] [address] Jun, [facility] [address] [id number] [address] [place] [address], [place] [address] Jun, [facility] [address] [id number] [address] [place] [address], [place] [address] Jun, [facility] [address] [id number] [address] [place] [address], [place] [address] May, [facility] [address] [id number] [address] [place] [address], [place] [address] May, [facility] [address] [id number] [address] [place] [address], [place] [address] Apr, [facility] [address] [id number] [address] [place] [address], [place] [address] Apr, [facility] [address] [id number] [address] [place] [address], [place] [address] 18 Apr, 2013 [facility] [address] [id number] [address] [place] [address], [place] [address] 18 Apr, 2013 [facility] [address] [id number] [address] [place] [address], [place] [address] Apr, [facility] [address] [id number] [address] [place] [address], [place] [address] Apr, [facility] [address] [id number] [address] [place] [address], [place] [address] Apr, [facility] [address] [id number] [address] [place] [address], [place] [address] Apr, [facility] [address] [id number] [address] [place] [address], [place] [address] Feb, [facility] [address] [id number] [address] [place] [address], [place] [address] Feb, [facility] [address] [id number] [address] [place] [address], [place] [address] Jan, [facility] [address] [id number] [address] [place] [address], [place] [address] Jan, [facility] [address] [id number] [address] [place] [address], [place] [address] Dec, [facility] [address] [id number] [address] [place] [address], [place] [address] Dec, [facility] [address] [id number] [address] [place] [address], [place] [address] Dec, [facility] [address] [id number] [address] [place] [address], [place] [address] Nov, [facility] [address] [id number] [address] [place] [address], [place] [address] Nov, [facility] [address] [id number] [address] [place] [address], [place] [address] Nov, [facility] [address] [id number] [address] [place] [address], [place] [address] Oct, [facility] [address] [id number] [address] [place] [address], [place] [address] Oct, [facility] [address] [id number] [address] [place] [address], [place] [address] Oct, [facility] [address] [id number] [address] [place] [address], [place] [address] September, [facility] [address] [id number] [address] [place] [address], [place] [address] September, [facility] [address] [id number] [address] [place] [address], [place] [address] September, [facility] [address] [id number] [address] [place] [address], [place] [address] Aug, [facility] [address] [id number] [address] [place] [address], [place] [address] Aug, [facility] [address] [id number] [address] [place] [address], [place] [address] Aug, [facility] [address] [id number] [address] [place] [address], [place] [address] 16 Aug, 2011 [facility] [address] [id number] [address] [place] [address], [place] [address] Jul, [facility] [address] [id number] [address] [place] [address], [place] [address] Jun, [facility] [address] [id number] [address] [place] [address], [place] [address] 14 Jun, 2011 [facility] [address] [id number] [address] [place] [address], [place] [address] Jun, [facility] [address] [id number] [address] [place] [address], [place] [address] Jun, [facility] [address] [id number] [address] [place] [address], [place] [address] Jun, [facility] [address] [id number] [address] [place] [address], [place] [address] May, [facility] [address] [id number] [address] [place] [address], [place] [address] May, [facility] [address] [id number] [address] [place] [address], [place] [address] May, [facility] [address] [id number] [address] [place] [address], [place] [address] 04 May, 2011 [facility] [address] [id number] [address] [place] [address], [place] [address] Apr, [facility] [address] [id number] [address] [place] [address], [place] [address] Apr, [facility] [address] [id number] [address] [place] [address], [place] [address] Apr, [facility] [address] [id number] [address] [place] [address], [place] [address] Mar, [facility] [address] [id number] [address] [place] [address], [place] [address] Mar, [facility] [address] [id number] [address] [place] [address], [place] [address] Mar, [facility] [address] [id number] [address] [place] [address], [place] [address] Feb, [facility] [address] [id number] [address] [place] [address], [place] [address] Feb, [facility] [address] [id number] [address] [place] [address], [place] [address] Feb, [facility] [address] [id number] [address] [place] [address], [place] [address] Nov, [facility] [address] [id number] [address] [place] [address], [place] [address] September, [facility] [address] [id number] [address] [place] [address], [place] [address] Aug, [facility] [address] [id number] [address] [place] [address], [place] [address] 14 Jul, 2010 [facility] [address] [id number] [address] [place] [address], [place] [address] May, [facility] [address] [id number] [address] [place] [address], [place] [address] Apr, [facility] [address] [facility] [id number] [address] [place] [address] Apr, [facility] [address] [facility] [id number] [address] [place] [address] Apr, [facility] [address] [facility] [id number] [address] [place] [address] Apr, [facility] [address] [facility] [id number] [address] [place] [address] Apr, IMMUNIZATIONS No Known Immunizations SOCIAL HISTORY Never Assessed REASON FOR VISIT PLAN OF CARE VITAL SIGNS MEDICATIONS Medication Instructions Dosage Frequency Start Date End Date Duration S samantha Black Cohosh 20 MG Orally Twice a day 1 tablet in the morning 12h Aug, September, 30 day(s) Active RESULTS No Results PROCEDURES [...]
--- OUTSIDE RECORDS SUMMARY | 2019-07-17 11:09 | XMS REPORT ---
Author Author Sujey GANDHI Organization [facility] Address [address] [place] [address] Care Team Providers Care Continuity Coordinator Name Role Phone WHIT GANDHI Unavailable PROBLEMS Type Condition ICD9-CM Code [id number] Code Onset Dates Condition S tatus SNOMED Code Problem Back pain M54.9 Active 654568546 Problem Diabetes E11.9 Active 76269586 Problem GERD (gastroesophageal reflux disease) K21.9 Active 766091911 Problem Hypertension I10 Active 0562568 3 Problem Anxiety disorder, unspecified F41.9 Active 308290560 Problem Other bipolar disorder F31.89 Active 40055118 Problem Fibromyalgia M79.7 Active 6869875 7 Problem Panic disorder with agoraphobia F40.01 Active 03053963 Problem Panlobular emphysema J43.1 Active 3769209 Problem Chronic obstructive pulmonary disease, unspecified J44.9 Active 54159686 Problem Akathisia G25.71 Active 995022228 Problem Lumbago with sciatica, left side M54.42 Active 868315234 Problem Migraine without aura and without status migrain osus, not intractable G43.009 Active 903116858 Problem Fibrocystic disease of right breast N60.11 Active 41861660 Problem Fibrocystic disease of left breast N60.12 Active 18247383 Problem Slow transit constipation K59.01 Acti ve 19040756 Problem Essential tremor G25.0 Active 609 391629 Problem Bipolar 1 disorder, depressed, moderate F31.32 Active 35619031 Problem Other chronic pain G89.29 Active 8 0733786 Problem Lumbago with sciatica, right side M54.41 Active 250007243 Problem Irritable bowel syndrome with constipation K58.1 Active 212563780 Problem Arthritis M19.90 Active 9685926 Problem Schizoaffective disorder, bipolar type F25.0 Active 33512073 Problem Irritable bowel syndrome with both constipation and diarrh ea K58.2 Active 67528927 Problem Attention deficit hyperactiv ity disorder (ADHD), predominantly inattentive type F90.0 Active 17747714 Problem Bipolar I disorder with depression F31.9 Active 38288591 Problem Chronic post-traumatic stress disorder (PTSD) F43. 12 Active 929474149 Problem Bipolar affective disorder, remission status unspecified F31.9 Active 78568366 Problem Mild persistent asthma without complication J45.30 Active 900984125 Problem Moderate persistent asthma without complication J4 5.40 Active 915865896 Problem Acute non-recurrent maxillary sinusitis J01.00 Active 72759258 Problem Bipolar 1 disorder, depressed, partial remission F 31.75 Active 49730515 ALLERGIES No Information ENCOUNTERS Encounter Location Date Diagnosis [facility] [address] [facility] [id number] [address] [place] [address] Mar, [facility] [address] [facility] [id number] [address] [place] [address] Dec, [place] [address] [facility] [id number] [address] [place] [address] Nov, Bipolar 1 disorder, depresse d, partial remission F31.75 and Panic disorder with agoraphobia F40.01 [facility] [address] [facility] [id number] [address] [place] [address] Nov, Panlobular emphysema J43.1 [facility] [address] [facility] [id number] [address] [place] [address] Nov, Cerebrovascular accident (CV A) due to occlusion of right cerebellar artery I63.541 and Acute non-recurrent maxillary sinusitis J01.00 [facility] [address] [facility] [id number] [address] [place] [address] Nov, Panlobular emphysema J43.1 [facility] [address] [facility] [id number] [address] [place] [address] Nov, [facility] [address] [facility] [id number] [address] [place] [address] Nov, [facility] [address] [facility] [id number] [address] [place] [address] Nov, [facility] [address] [facility] [id number] [address] [place] [address] Nov, [facility] [address] [facility] [id number] [address] [place] [address] Nov, [facility] [address] [facility] [id number] [address] [place] [address] Nov, [facility] [address] [facility] [id number] [address] [place] [address] Nov, [facility] [address] [facility] [id number] [address] [place] [address] Nov, Mild persistent asthma witho ut complication J45.30 and Irritable bowel syndrome with both constipation and diarrhea K58.2 [facility] [address] [facility] [id number] [address] [place] [address] Nov, [facility] [address] [facility] [id number] [address] [place] [address] Oct, [facility] [address] [facility] [id number] [address] [place] [address] Oct, [facility] [address] [facility] [id number] [address] [place] [address] Oct, Type 2 diabetes mellitus wit h diabetic neuropathy, 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 ; Diabetes E11.9 ; Slow transit constipation K59.01 ; Edema of both legs R60.0 and Dysfunction of right eustachian tube H69.81 [facility] [address] [id number] [address] [place] [address] Oct, Frequent headaches R51 [facility] [address] [facility] [id number] [address] [place] [address] Oct, [facility] [address] [facility] [id number] [address] [place] [address] Oct, [facility] [address] [facility] [id number] [address] [place] [address] Oct, [facility] [address] [facility] [id number] [address] [place] [address] Oct, [facility] [address] [facility] [id number] [address] [place] [address] Oct, [facility] [address] [facility] [id number] [address] [place] [address] Oct, [facility] [address] [facility] [id number] [address] [place] [address] Oct, [facility] [address] [facility] [id number] [address] [place] [address] Oct, [facility] [address] [facility] [id number] [address] [place] [address] September, Frequent headaches R51 [facility] [address] [facility] [id number] [address] [place] [address] September, Bilateral otitis media with effusion H65.93 ; Dizziness R42 and Essential tremor G25.0 [facility] [address] [facility] [id number] [address] [place] [address] September, Chronic obstructive pulmonar y disease, unspecified COPD type J44.9 [facility] [address] [facility] [id number] [address] [place] [address] September, Chronic obstructive pulmonar y disease, unspecified COPD type J44.9 [facility] [address] [facility] [id number] [address] [place] [address] September, Migraine without aura and wi thout status migrainosus, not intractable G43.009 [facility] [address] [facility] [id number] [address] [place] [address] September, [facility] [address] [facility] [id number] [address] [place] [address] September, [facility] [address] [facility] [id number] [address] [place] [address] September, [place] [address] [facility] [id number] [address] [place] [address] September, Frequent headaches R51 [place] [address] [facility] [id number] [address] [place] [address] Aug, [place] [address] [facility] [id number] [address] [place] [address] Aug, Breast mass, right N63.10 [place] [address] [facility] [id number] [address] [place] [address] Aug, Breast lump N63.0 [place] [address] [facility] [id number] [address] [place] [address] Aug, [place] [address] [place] [id number] [place] [address] Aug, Bipolar affective disorder, remission status unspecified F31.9 and Diabetes E11.9 [place] [address] [place] [id number] [address] [place] [address] Aug, Diabetes E11.9 ; Schizoaffec tive disorder, bipolar type F25.0 ; Pharyngitis due to other organism J02.8 ; Panlobular emphysema J43.1 and Irritable bowel syndrome with both constipation and diarrhea K58.2 [place] [id number] [place] [address] Aug, Abnormal mammogram R92.8 [place] [address] [place] [id number] [address] [place] [address] Aug, [place] [address] [place] [id number] [address] [place] [address] Aug, Bipolar 1 disorder, depresse d, moderate F31.32 ; Panic disorder with agoraphobia F40.01 and Chronic post-traumatic stress disorder (PTSD) F43.12 [place] [address] [place] [id number] [address] [place] [address] Aug, [place] [address] [place] [id number] [address] [place] [address] Aug, [facility] [address] [id number] [address] [place] [address] Aug, [facility] [address] [facility] [id number] [address] [place] [address] Jul, [facility] [address] [facility] [id number] [address] [place] [address] Jul, Mild persistent asthma witho ut complication J45.30 [facility] [address] [id number] [address] [place] [address] 19 Jul, 2017 Mild persistent asthma witho ut complication J45.30 [facility] [address] [facility] [id number] [address] [place] [address] 15 Jul, 2017 Bipolar affective disorder, remission status unspecified F31.9 ; Diabetes E11.9 and Irritable bowel syndrome with constipation K58.1 [facility] [address] [facility] [id number] [address] [place] [address] Jul, [facility] [address] [facility] [id number] [address] [place] [address] Jul, [facility] [address] [facility] [id number] [address] [place] [address] Jul, Frequent headaches R51 [facility] [address] [facility] [id number] [address] [place] [address] Jul, [facility] [address] [facility] [id number] [address] [place] [address] Jul, [facility] [address] [facility] [id number] [address] [place] [address] Jul, [facility] [address] [facility] [id number] [address] [place] [address] Jul, Frequent headaches R51 ; Fib rocystic disease of left breast N60.12 ; Fibrocystic disease of right breast N60.11 and Diabetes E11.9 [facility] [address] [facility] [id number] [address] [place] [address] 02 Jul, 2017 [facility] [address] [facility] [id number] [address] [place] [address] Jul, [facility] [address] [facility] [id number] [address] [place] [address] 21 Jun, 2017 Exudative tonsillitis J03.90 [facility] [address] [facility] [id number] [address] [place] [address] 20 Jun, 2017 [facility] [address] [facility] [id number] [address] [place] [address] 19 Jun, 2017 [facility] [address] [address] 15 Jun, 2017 Mild persistent asthma witho ut complication J45.30 ; Chronic obstructive pulmonary disease, unspecified COPD type J44.9 and Exudative tonsillitis J03.90 [facility] [address] [place] [address] 13 Jun, 2017 Encounter for immunization Z 23 [facility] [address] [place] [id number] [address] [place] [address] 12 Jun, 2017 [facility] [address] [place] [id number] [address] [place] [address] 12 Jun, 2017 [facility] [address] [place] [address] 09 Jun, 2017 [facility] [address] [facility] [id number] [address] [place] [address] 06 Jun, 2017 Tonsillitis J03.90 [facility] [address] [facility] [id number] [address] [place] [address] 05 Jun, 2017 [facility] [address] [facility] [id number] [address] [place] [address] 03 Jun, 2017 Acute non-recurrent maxillar y sinusitis J01.00 [facility] [address] [place] [address] Jun, [facility] [address] [address] May, [facility] [address] [place] [id number] [address] [place] [address] May, [facility] [address] [address] May, GERD (gastroesophageal reflu x disease) K21.9 [facility] [address] [address] May, Migraine without aura and wi thout status migrainosus, not intractable G43.009 [place] [address] [address] May, [place] [address] [address] May, [facility] [address] [address] May, Panlobular emphysema J43.1 a nd Acute non-recurrent maxillary sinusitis J01.00 [place] [address] [address] May, Bipolar 1 disorder, depresse d, moderate F31.32 ; Panic disorder with agoraphobia F40.01 and Akathisia G25.71 [facility] [address] [address] Apr, [place] [address] [address] Apr, [place] [address] [address] Apr, Acute non-recurrent maxillar y sinusitis J01.00 [place] [address] [address] Apr, Panlobular emphysema J43.1 [facility] [address] [facility] [id number] [address] [place] [address] Apr, [facility] [address] [facility] [id number] [address] [place] [address] Apr, Exudative tonsillitis J03.90 and Sore throat J02.9 [facility] [address] [facility] [id number] [address] [place] [address] Mar, [facility] [address] [facility] [id number] [address] [place] [address] Mar, Acute non-recurrent maxillar y sinusitis J01.00 [place] [address] [facility] [id number] [address] [place] [address] Mar, [facility] [address] [place] [id number] [place] [address] Mar, Panlobular emphysema J43.1 a nd Diabetes E11.9 [facility] [address] [facility] [id number] [address] [place] [address] Mar, [facility] [address] [facility] [id number] [address] [place] [address] Feb, Wheezing R06.2 and Acute rec urrent pansinusitis J01.41 [facility] [address] [facility] [id number] [address] [place] [address] Feb, [facility] [address] [facility] [id number] [address] [place] [address] Feb, Acute non-recurrent maxillar y sinusitis J01.00 [facility] [address] [facility] [id number] [address] [place] [address] Feb, Chronic obstructive pulmonar y disease, unspecified J44.9 [facility] [address] [facility] [id number] [address] [place] [address] Feb, Hypoxemia R09.02 and Chronic obstructive pulmonary disease, unspecified J44.9 [facility] [address] [facility] [id number] [address] [place] [address] 28 Jan, 2017 Bipolar 1 disorder, depresse d, moderate F31.32 ; Panic disorder with agoraphobia F40.01 ; Chronic post-traumatic stress disorder (PTSD) F43.12 ; Diabetes E11.9 and Moderate persistent asthma without complication J45.40 [facility] [address] [id number] [address] [place] [address] Jan, [facility] [address] [id number] [address] [place] [address] Jan, Acute non-recurrent maxillar y sinusitis J01.00 [place] [address] [facility] [id number] [address] [place] [address] Jan, [place] [address] [id number] [address] [place] [address] Jan, [facility] [address] [id number] [address] [place] [address] Jan, [facility] J[facility].40 and Hypoxemia R09.02 [place] [address] [facility] [id number] [address] [place] [address] Jan, Moderate persistent asthma w [facility] complication J45.40 and Hypoxemia R09.02 [place] [address] [facility] [id number] [address] [place] [address] Jan, [facility] [address] [id number] [address] [place] [address] Dec, Acute non-recurrent maxillar y sinusitis J01.00 [facility] [address] [facility] [id number] [address] [place] [address] Dec, Chronic obstructive pulmonar y disease, unspecified J44.9 [facility] [address] [facility] [id number] [address] [place] [address] Dec, [place] [address] [facility] [id number] [address] [place] [address] Dec, Mild persistent asthma witho ut complication J45.30 and Other chronic pain G89.29 [facility] [address] [facility] [id number] [address] [place] [address] Nov, [facility] [address] [facility] [id number] [address] [place] [address] Nov, Acute non-recurrent maxillar y sinusitis J01.00 [facility] [address] [facility] [id number] [address] [place] [address] Nov, [place] [address] [place] [id number] [place] [address] Nov, [place] [address] [place] [id number] [address] [place] [address] Oct, [place] [address] [place] [id number] [address] [place] [address] Oct, Bipolar 1 disorder, depresse d, partial remission F31.75 ; Panic disorder with agoraphobia F40.01 and Chronic post-traumatic stress disorder (PTSD) F43.12 [place] [address] [place] [id number] [address] [place] [address] Oct, Acute non-recurrent maxillar y sinusitis J01.00 [place] [address] [facility] [id number] [address] [place] [address] Oct, [facility] [address] [place] [id number] [address] [place] [address] Oct, Diabetes E11.9 [place] [address] [facility] [id number] [address] [place] [address] September, Diabetes E11.9 [place] [address] [facility] [id number] [address] [place] [address] September, Diabetes E11.9 and Sinus tac hycardia R00.0 [place] [address] [facility] [id number] [address] [place] [address] September, [facility] [address] [facility] [id number] [address] [place] [address] September, [facility] [address] [place] [id number] [address] [place] [address] Aug, Diabetes E11.9 and Lumbago w ith sciatica, right side M54.41 [facility] [address] [place] [id number] [address] [place] [address] Aug, [facility] [address] [place] [id number] [address] [place] [address] Jul, Bipolar 1 disorder, depresse d, moderate F31.32 ; Panic disorder with agoraphobia F40.01 and Chronic post-traumatic stress disorder (PTSD) F43.12 [facility] [address] [place] [address] Jul, Sore throat J02.9 [facility] [address] [facility] [id number] [address] [place] [address] Jul, [facility] [address] [place] [id number] [address] [place] [address] Jul, [facility] [address] [place] [id number] [address] [place] [address] Jul, [facility] [address] [place] [id number] [address] [place] [address] Jul, [facility] [address] [facility] [id number] [address] [place] [address] Jul, Sore throat J02.9 and Pharyn gitis, unspecified etiology J02.9 [facility] [address] [facility] [id number] [address] [place] [address] Jun, [facility] [address] [place] [id number] [address] [place] [address] Jun, Diabetes E11.9 [facility] [address] [place] [id number] [address] [place] [address] Jun, [facility] [address] [id number] [address] [place] [id number] Jun, [facility] [address] [id number] [address] [place] [address] Jun, [facility] [address] [id number] [address] [place] [address] Jun, [facility] [address] [id number] [address] [place] [address] Jun, [facility] [address] [id number] [address] [place] [id number] Jun, [facility] [address] [id number] [address] [place] [id number] Jun, [facility] [address] [id number] [address] [place] [id number] Jun, [facility] [address] [id number] [address] [place] [id number] May, Diabetes E11.9 ; Other chron ic pain G89.29 ; Acute recurrent maxillary sinusitis J01.01 ; Bipolar I disorder with depression F31.9 and Anxiety disorder, unspecified F41.9 [facility] [address] [id number] [address] [place] [id number] May, [facility] [address] [id number] [address] [place] [id number] May, Diabetes E11.9 ; Bipolar I d isorder with depression F31.9 ; Anxiety disorder, unspecified F41.9 ; Other chronic pain G89.29 and Acute recurrent maxillary sinusitis J01.01 [facility] [address] [id number] [address] [place] [id number] May, [facility] [address] [facility] [id number] [address] [place] [phone] May, Attention deficit hyperactiv ity disorder (ADHD), predominantly inattentive type F90.0 [facility] [address] [id number] [address] [place] [id number] May, [facility] [address] [facility] [id number] [address] [place] [id number] Apr, Attention deficit hyperactiv ity disorder (ADHD), predominantly inattentive type F90.0 and Non-seasonal allergic rhinitis due to other allergic trigger J30.89 [facility] [address] [id number] [address] [place] [id number] 15 Apr, 2016 Bipolar 1 disorder, depresse d, moderate F31.32 ; Panic disorder with agoraphobia F40.01 and Chronic post-traumatic stress disorder (PTSD) F43.12 [place] [address] [place] [id number] [address] [place] [id number] 06 Apr, 2016 Dental examination Z01.20 [facility] [address] [facility] [id number] [address] [place] [id number] Mar, [facility] [address] [facility] [id number] [address] [place] [phone] Mar, [place] [address] [place] [id number] [address] [place] [phone] Mar, Bipolar I disorder with depr ession F31.9 and Anxiety disorder, unspecified F41.9 [place] [address] [facility] [id number] [address] [place] [id number] 08 Mar, 2016 Panic disorder with agorapho syd F40.01 ; Bipolar 1 disorder, depressed, moderate F31.32 and Chronic post-traumatic stress disorder (PTSD) F43.12 [facility] [address] [facility] [id number] [address] [place] [address] 04 Mar, 2016 [place] [address] [facility] [id number] [address] [place] [address] 02 Mar, 2016 Dental caries K02.9 [place] [address] [place] [id number] [address] [place] [address] 24 Feb, 2016 Lumbago with sciatica, left side M54.42 ; Lumbago with sciatica, right side M54.41 and Other chronic pain G89.29 [facility] [address] [facility] [id number] [address] [place] [address] 17 Feb, 2016 [facility] [address] [place] [id number] [place] [address] 14 Feb, 2016 [facility] [address] [place] [id number] [place] [address] 13 Feb, 2016 Bipolar I disorder with depr ession F31.9 ; PTSD (post-traumatic stress disorder) F43.10 and Mood disorder F39 [facility] [address] [place] [id number] [place] [address] 13 Feb, 2016 [facility] [address] [address] 11 Feb, 2016 Dental examination Z01.20 [facility] [address] [address] 07 Feb, 2016 [facility] [address] [place] [id number] [place] [address] 03 Feb, 2016 Acute bronchitis, unspecifie d organism J20.9 [facility] [address] [place] [id number] [address] [place] [address] Jan, Mood disorder F39 ; Migraine without aura and without status migrainosus, not intractable G43.009 ; Irritable bowel syndrome, unspecified type K58.9 ; Diabetes E11.9 and Encounter for immunization Z23 [facility] [address] [place] [id number] [address] [place] [address] 15 Jan, 2016 [facility] [address] [place] [id number] [place] [address] 06 Jan, 2016 [facility] [address] [place] [id number] [address] [place] [address] Jan, [facility] [address] [id number] [address] [place] [address] Jan, [facility] [address] [facility] [id number] [address] [place] [address] Jan, [facility] [address] [facility] [id number] [address] [place] [address] Dec, Bipolar I disorder with depr ession F31.9 ; PTSD (post-traumatic stress disorder) F43.10 and Panic disorder with agoraphobia F40.01 [facility] [address] [facility] [id number] [address] [place] [address] Dec, Chronic obstructive pulmonar y disease, unspecified COPD type J44.9 ; Tremor R25.1 and Anxiety F41.9 [facility] [address] [facility] [id number] [address] [place] [address] Dec, [facility] [address] [facility] [id number] [address] [place] [address] Nov, Tremors of nervous system R2 5.1 and Cramping of feet R25.2 [facility] [address] [facility] [id number] [address] [place] [address] Nov, [facility] [address] [facility] [id number] [address] [place] [address] Nov, [facility] [address] [facility] [id number] [address] [place] [address] Oct, Chronic obstructive pulmonar y disease, unspecified J44.9 [facility] [address] [facility] [id number] [address] [place] [address] Oct, [facility] [address] [facility] [id number] [address] [place] [address] Oct, Tremor R25.1 [facility] [address] [facility] [id number] [address] [place] [address] Oct, Bipolar I disorder with depr ession F31.9 ; Diabetes E11.9 ; PTSD (post-traumatic stress disorder) F43.10 and Panic disorder with agoraphobia F40.01 [facility] [address] [facility] [id number] [address] [place] [address] Oct, Mood disorder F39 [facility] [address] [facility] [id number] [address] [place] [address] September, [facility] [address] [place] [id number] [address] [place] [address] September, Diabetes E11.9 ; Bipolar I d isorder with depression F31.9 ; PTSD (post-traumatic stress disorder) F43.10 and Panic disorder with agoraphobia F40.01 [place] [address] [facility] [id number] [address] [place] [address] September, Mood disorder F39 ; Schizoaf fective disorder, unspecified type F25.9 ; Arthritis M19.90 ; Tremor R25.1 ; Acute non-recurrent frontal sinusitis J01.10 and Blood in stool K92.1 [place] [address] [place] [id number] [address] [place] [address] September, [facility] [address] [facility] [id number] [address] [place] [address] September, Chronic obstructive pulmonar y disease, unspecified J44.9 [place] [address] [facility] [id number] [address] [place] [address] September, Diabetes E11.9 [facility] [address] [facility] [id number] [address] [place] [address] Aug, Other bipolar disorder F31.8 9 and Anxiety disorder, unspecified F41.9 [facility] [address] [facility] [id number] [address] [place] [address] Aug, [place] [address] [place] [id number] [address] [place] [address] Aug, Diabetes E11.9 [place] [address] [facility] [id number] [address] [place] [address] 18 Aug, 2015 [facility] [address] [id number] [address] [place] [address] 14 Aug, 2015 Diabetes E11.9 ; Fatigue R53 .83 and Dizziness R42 [facility] [address] [id number] [address] [place] [address] 13 Aug, 2015 Other bipolar disorder F31.8 9 [facility] [address] [id number] [address] [place] [address] Aug, Generalized anxiety disorder F41.1 [facility] [address] [id number] [address] [place] [address] Aug, Other bipolar disorder F31.8 9 and Anxiety disorder, unspecified F41.9 [facility] [address] [id number] [address] [place] [address] Aug, [facility] [address] [id number] [address] [place] [address] 29 Jul, 2015 [facility] [address] [id number] [address] [place] [address] 24 Jul, 2015 [facility] [address] [id number] [address] [place] [address] 23 Jul, 2015 Bronchitis J40 [facility] [address] [id number] [address] [place] [address] Jul, Anxiety disorder F41.9 [facility] [address] [id number] [address] [place] [address] Jul, Other bipolar disorder F31.8 9 and Anxiety disorder, unspecified F41.9 [facility] [address] [id number] [address] [place] [address] 18 Jul, 2015 Other bipolar disorder F31.8 9 and Fibromyalgia M79.7 [facility] [address] [id number] [address] [place] [address] 10 Jul, 2015 [facility] [address] [id number] [address] [place] [address] Jul, [facility] [address] [facility] [id number] [address] [place] [address] Jul, [facility] [address] [place] [id number] [address] [place] [address] Jul, Other bipolar disorder F31.8 9 and Anxiety disorder, unspecified F41.9 [facility] [address] [facility] [id number] [address] [place] [address] Jun, GERD (gastroesophageal reflu x disease) K21.9 [facility] [address] [facility] [id number] [place] [address] Jun, [facility] [address] [place] [id number] [place] [address] May, [facility] [address] [address] May, Diabetes E11.9 ; Back pain M 54.9 ; GERD (gastroesophageal reflux disease) K21.9 ; Hypertension I10 and Peripheral neuropathy G62.9 [facility] [address] [place] [id number] [place] [address] Mar, [facility] [address] [place] [id number] [place] [address] Mar, [facility] [address] [address] Mar, Acute sinusitis J01.90 and O titis media, left H66.92 [facility] [address] [place] [id number] [address] [place] [address] Feb, [facility] [address] [place] [id number] [place] [address] Feb, [facility] [address] [place] [id number] [place] [address] Feb, [facility] [address] [place] [address] Feb, [facility] [address] [facility] [id number] [address] [place] [address] Jan, [facility] [address] [place] [id number] [address] [place] [address] Jan, Diabetes 250.00 and Back higinio n 724.5 [facility] [address] [place] [id number] [place] [address] Jan, [facility] [address] [place] [id number] [address] [place] [address] Dec, Diabetes 250.00 ; Benign ess ential hypertension 401.1 and Allergic rhinitis 477.9 [facility] [address] [place] [id number] [address] [place] [address] Dec, [facility] [address] [address] Dec, [facility] [address] [place] [id number] [address] [place] [address] Dec, Psychosis 298.9 [facility] [address] [address] Dec, Medication side effect 995.2 0 and Generalized anxiety disorder 300.02 [facility] [address] [place] [id number] [address] [place] [address] Dec, Acquired cognitive dysfuncti on 294.9 [facility] [address] [place] [id number] [address] [place] [address] Dec, [facility] [address] [place] [id number] [place] [address] Dec, Unspecified myalgia and myos itis 729.1 and Generalized anxiety disorder 300.02 [facility] [address] [place] [id number] [address] [place] [address] Nov, [facility] [address] [place] [id number] [place] [address] [place] [address] Nov, [facility] [address] [id number] [address] [place] [address] Nov, [facility] [address] [facility] [id number] [address] [place] [address] Nov, Upper respiratory infection 465.9 and Chronic airway obstruction, not elsewhere classified 496 [facility] [address] [id number] [address] [place] [address] Nov, Hyponatremia 276.1 [facility] [address] [id number] [address] [place] [address] Oct, [facility] [address] [id number] [address] [place] [address] Oct, [facility] [address] [facility] [id number] [address] [place] [address] Oct, [facility] [address] [id number] [address] [place] [address] Oct, [facility] [address] [id number] [address] [place] [address] Oct, Hyponatremia 276.1 [facility] [address] [facility] [id number] [address] [place] [address] Oct, [facility] [address] [id number] [address] [place] [address] Oct, [facility] [address] [facility] [id number] [address] [place] [address] Oct, Generalized anxiety disorder 300.02 [facility] [address] [id number] [address] [place] [address] Oct, Generalized anxiety disorder 300.02 and Diabetes 250.00 [facility] [address] [id number] [address] [place] [address] 14 Aug, 2014 [facility] [address] [facility] [id number] [address] [place] [address] Aug, [facility] [address] [id number] [address] [place] [address], [place] [address] Jul, [facility] [address] [id number] [address] [place] [address], [place] [address] Jul, [facility] [address] [id number] [address] [place] [address], [place] [address] Jun, [facility] [address] [id number] [address] [place] [address], [place] [address] Jun, [facility] [address] [id number] [address] [place] [address], [place] [address] Jun, [facility] [address] [id number] [address] [place] [address], [place] [address] Jun, [facility] [address] [id number] [address] [place] [address], [place] [address] Jun, [facility] [address] [id number] [address] [place] [address], [place] [address] May, [facility] [address] [id number] [address] [place] [address], [place] [address] May, [facility] [address] [id number] [address] [place] [address], [place] [address] Apr, [facility] [address] [id number] [address] [place] [address], [place] [address] Apr, [facility] [address] [id number] [address] [place] [address], [place] [address] 18 Apr, 2013 [facility] [address] [id number] [address] [place] [address], [place] [address] 18 Apr, 2013 [facility] [address] [id number] [address] [place] [address], [place] [address] 17 Apr, 2013 [facility] [address] [id number] [address] [place] [address], [place] [address] Apr, [facility] [address] [id number] [address] [place] [address], [place] [address] Apr, [facility] [address] [id number] [address] [place] [address], [place] [address] Apr, [facility] [address] [id number] [address] [place] [address], [place] [address] Feb, [facility] [address] [id number] [address] [place] [address], [place] [address] Feb, [facility] [address] [id number] [address] [place] [address], [place] [address] Jan, [facility] [address] [id number] [address] [place] [address], [place] [address] Jan, [facility] [address] [id number] [address] [place] [address], [place] [address] Dec, [facility] [address] [id number] [address] [place] [address], [place] [address] Dec, [facility] [address] [id number] [address] [place] [address], [place] [address] Dec, [facility] [address] [id number] [address] [place] [address], [place] [address] Nov, [facility] [address] [id number] [address] [place] [address], [place] [address] Nov, [facility] [address] [id number] [address] [place] [address], [place] [address] Nov, [facility] [address] [id number] [address] [place] [address], [place] [address] Oct, [facility] [address] [id number] [address] [place] [address], [place] [address] Oct, [facility] [address] [id number] [address] [place] [address], [place] [address] Oct, [facility] [address] [id number] [address] [place] [address], [place] [address] September, [facility] [address] [id number] [address] [place] [address], [place] [address] September, [facility] [address] [id number] [address] [place] [address], [place] [address] September, [facility] [address] [id number] [address] [place] [address], [place] [address] Aug, [facility] [address] [id number] [address] [place] [address], [place] [address] Aug, [facility] [address] [id number] [address] [place] [address], [place] [address] Aug, [facility] [address] [id number] [address] [place] [address], [place] [address] 16 Aug, 2011 [facility] [address] [id number] [address] [place] [address], [place] [address] Jul, [facility] [address] [id number] [address] [place] [address], [place] [address] Jun, [facility] [address] [id number] [address] [place] [address], [place] [address] 14 Jun, 2011 [facility] [address] [id number] [address] [place] [address], [place] [address] Jun, [facility] [address] [id number] [address] [place] [address], [place] [address] 07 Jun, 2011 [facility] [address] [id number] [address] [place] [address], [place] [address] Jun, [facility] [address] [id number] [address] [place] [address], [place] [address] May, [facility] [address] [id number] [address] [place] [address], [place] [address] May, [facility] [address] [id number] [address] [place] [address], [place] [address] May, [facility] [address] [id number] [address] [place] [address], [place] [address] 04 May, 2011 [facility] [address] [id number] [address] [place] [address], [place] [address] Apr, [facility] [address] [id number] [address] [place] [address], [place] [address] 13 Apr, 2011 [facility] [address] [id number] [address] [place] [address], [place] [address] 05 Apr, 2011 [facility] [address] [id number] [address] [place] [address], [place] [address] Mar, [facility] [address] [id number] [address] [place] [address], [place] [address] Mar, [facility] [address] [id number] [address] [place] [address], [place] [address] Mar, [facility] [address] [id number] [address] [place] [address], [place] [address] Feb, [facility] [address] [id number] [address] [place] [address], [place] [address] Feb, [facility] [address] [id number] [address] [place] [address], [place] [address] Feb, [facility] [address] [id number] [address] [place] [address], [place] [address] Nov, [facility] [address] [id number] [address] [place] [address], [place] [address] September, [facility] [address] [id number] [address] [place] [address], [place] [address] 12 Aug, 2010 [facility] [address] [id number] [address] [place] [address], [place] [address] 14 Jul, 2010 [facility] [address] [id number] [address] [place] [address], [place] [address] May, [facility] [address] [id number] [address] [place] [address], [place] [address] Apr, [facility] [address] [facility] [id number] [address] [place] [id number] Apr, [facility] [address] [facility] [id number] [address] [place] [id number] Apr, [facility] [address] [facility] [id number] [address] [place] [id number] Apr, [facility] [address] [facility] [id number] [address] [place] [id number] Apr, IMMUNIZATIONS No Known Immunizations SOCIAL HISTORY Never Assessed REASON FOR VISIT mammo results PLAN OF CARE VITAL SIGNS MEDICATIONS [...]
--- OUTSIDE RECORDS SUMMARY | 2019-07-17 11:09 | XMS REPORT ---
Author Author Sujey GANDHI Organization [facility] Address [address] [place] [address] Care Team Providers Care Vascular Surgeon Name Role Phone WHIT GANDHI Unavailable PROBLEMS Type Condition ICD9-CM Code EGQ81-MD Code Onset Dates Condition S tatus SNOMED Code Problem Back pain M54.9 Active 149359884 Problem Diabetes E11.9 Active 94266772 Problem GERD (gastroesophageal reflux disease) K21.9 Active 422573532 Problem Hypertension I10 Active 5171011 3 Problem Anxiety disorder, unspecified F41.9 Active 409627795 Problem Other bipolar disorder F31.89 Active 37709541 Problem Fibromyalgia M79.7 Active 6314431 7 Problem Panic disorder with agoraphobia F40.01 Active 74878575 Problem Panlobular emphysema J43.1 Active 6912129 Problem Chronic obstructive pulmonary disease, unspecified J44.9 Active 51720596 Problem Akathisia G25.71 Active 167972776 Problem Lumbago with sciatica, left side M54.42 Active 185772005 Problem Migraine without aura and without status migrain osus, not intractable G43.009 Active 104417740 Problem Fibrocystic disease of right breast N60.11 Active 05171540 Problem Fibrocystic disease of left breast N60.12 Active 53708523 Problem Slow transit constipation K59.01 Acti ve 29872549 Problem Essential tremor G25.0 Active 609 422698 Problem Bipolar 1 disorder, depressed, moderate F31.32 Active 71404947 Problem Other chronic pain G89.29 Active 8 9985825 Problem Lumbago with sciatica, right side M54.41 Active 302183313 Problem Irritable bowel syndrome with constipation K58.1 Active 079649527 Problem Arthritis M19.90 Active 2588945 Problem Schizoaffective disorder, bipolar type F25.0 Active 06080919 Problem Irritable bowel syndrome with both constipation and diarrh ea K58.2 Active 73842726 Problem Attention deficit hyperactiv ity disorder (ADHD), predominantly inattentive type F90.0 Active 99544840 Problem Bipolar I disorder with depression F31.9 Active 92673995 Problem Chronic post-traumatic stress disorder (PTSD) F43. 12 Active 055453397 Problem Bipolar affective disorder, remission status unspecified F31.9 Active 64879693 Problem Mild persistent asthma without complication J45.30 Active 322174744 Problem Moderate persistent asthma without complication J4 5.40 Active 869592972 Problem Acute non-recurrent maxillary sinusitis J01.00 Active 57639448 Problem Bipolar 1 disorder, depressed, partial remission F 31.75 Active 21736914 ALLERGIES No Information ENCOUNTERS Encounter Location Date Diagnosis [facility] [address] [facility] [id number] [address] [place] [phone] Mar, [facility] [address] [facility] [id number] [address] [place] [phone] Dec, [place] [address] [facility] [id number] [address] [place] [phone] Nov, Bipolar 1 disorder, depresse d, partial remission F31.75 and Panic disorder with agoraphobia F40.01 [facility] [address] [facility] [id number] [address] [place] [phone] Nov, Panlobular emphysema J43.1 [facility] [address] [facility] [id number] [address] [place] [phone] Nov, Cerebrovascular accident (CV A) due to occlusion of right cerebellar artery I63.541 and Acute non-recurrent maxillary sinusitis J01.00 [facility] [address] [facility] [id number] [address] [place] [phone] Nov, Panlobular emphysema J43.1 [facility] [address] [facility] [id number] [address] [place] [phone] Nov, [facility] [address] [facility] [id number] [address] [place] [phone] Nov, [facility] [address] [facility] [id number] [address] [place] [phone] Nov, [facility] [address] [facility] [id number] [address] [place] [phone] Nov, [facility] [address] [facility] [id number] [address] [place] [phone] Nov, [facility] [address] [facility] [id number] [address] [place] [phone] Nov, [facility] [address] [facility] [id number] [address] [place] [phone] Nov, [facility] [address] [facility] [id number] [address] [place] [phone] Nov, Mild persistent asthma witho ut complication J45.30 and Irritable bowel syndrome with both constipation and diarrhea K58.2 [facility] [address] [facility] [id number] [address] [place] [phone] Nov, [facility] [address] [facility] [id number] [address] [place] [phone] Oct, [facility] [address] [facility] [id number] [address] [place] [phone] Oct, [facility] [address] [facility] [id number] [address] [place] [phone] Oct, Type 2 diabetes mellitus wit h diabetic neuropathy, 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 ; Diabetes E11.9 ; Slow transit constipation K59.01 ; Edema of both legs R60.0 and Dysfunction of right eustachian tube H69.81 [facility] [address] [id number] [address] [place] [phone] Oct, Frequent headaches R51 [facility] [address] [facility] [id number] [address] [place] [phone] Oct, [facility] [address] [facility] [id number] [address] [place] [phone] Oct, [facility] [address] [facility] [id number] [address] [place] [phone] Oct, [facility] [address] [facility] [id number] [address] [place] [phone] Oct, [facility] [address] [facility] [id number] [address] [place] [phone] Oct, [facility] [address] [facility] [id number] [address] [place] [phone] Oct, [facility] [address] [facility] [id number] [address] [place] [phone] Oct, [facility] [address] [facility] [id number] [address] [place] [phone] Oct, [facility] [address] [facility] [id number] [address] [place] [phone] September, Frequent headaches R51 [facility] [address] [facility] [id number] [address] [place] [phone] September, Bilateral otitis media with effusion H65.93 ; Dizziness R42 and Essential tremor G25.0 [facility] [address] [facility] [id number] [address] [place] [phone] September, Chronic obstructive pulmonar y disease, unspecified COPD type J44.9 [facility] [address] [facility] [id number] [address] [place] [phone] September, Chronic obstructive pulmonar y disease, unspecified COPD type J44.9 [facility] [address] [facility] [id number] [address] [place] [phone] September, Migraine without aura and wi thout status migrainosus, not intractable G43.009 [facility] [address] [facility] [id number] [address] [place] [phone] September, [facility] [address] [facility] [id number] [address] [place] [phone] September, [facility] [address] [facility] [id number] [address] [place] [phone] September, [place] [address] [facility] [id number] [address] [place] [phone] September, Frequent headaches R51 [place] [address] [facility] [id number] [address] [place] [phone] Aug, [place] [address] [facility] [id number] [address] [place] [phone] Aug, Breast mass, right N63.10 [place] [address] [facility] [id number] [address] [place] [address] Aug, Breast lump N63.0 [place] [address] [facility] [id number] [address] [place] [phone] Aug, [place] [address] [place] [id number] [place] [phone] Aug, Bipolar affective disorder, remission status unspecified F31.9 and Diabetes E11.9 [place] [address] [place] [id number] [address] [place] [phone] Aug, Diabetes E11.9 ; Schizoaffec tive disorder, bipolar type F25.0 ; Pharyngitis due to other organism J02.8 ; Panlobular emphysema J43.1 and Irritable bowel syndrome with both constipation and diarrhea K58.2 [place] [id number] [place] [phone] Aug, Abnormal mammogram R92.8 [place] [address] [place] [id number] [address] [place] [phone] Aug, [place] [address] [place] [id number] [address] [place] [address] Aug, Bipolar 1 disorder, depresse d, moderate F31.32 ; Panic disorder with agoraphobia F40.01 and Chronic post-traumatic stress disorder (PTSD) F43.12 [place] [address] [place] [id number] [address] [place] [phone] Aug, [place] [address] [place] [id number] [address] [place] [phone] Aug, [facility] [address] [id number] [address] [place] [phone] Aug, [facility] [address] [facility] [id number] [address] [place] [phone] Jul, [facility] [address] [facility] [id number] [address] [place] [address] Jul, Mild persistent asthma witho ut complication J45.30 [facility] [address] [id number] [address] [place] [phone] 19 Jul, 2017 Mild persistent asthma witho ut complication J45.30 [facility] [address] [facility] [id number] [address] [place] [phone] 15 Jul, 2017 Bipolar affective disorder, remission status unspecified F31.9 ; Diabetes E11.9 and Irritable bowel syndrome with constipation K58.1 [facility] [address] [facility] [id number] [address] [place] [phone] Jul, [facility] [address] [facility] [id number] [address] [place] [phone] Jul, [facility] [address] [facility] [id number] [address] [place] [phone] Jul, Frequent headaches R51 [facility] [address] [facility] [id number] [address] [place] [phone] Jul, [facility] [address] [facility] [id number] [address] [place] [phone] Jul, [facility] [address] [facility] [id number] [address] [place] [phone] Jul, [facility] [address] [facility] [id number] [address] [place] [address] Jul, Frequent headaches R51 ; Fib rocystic disease of left breast N60.12 ; Fibrocystic disease of right breast N60.11 and Diabetes E11.9 [facility] [address] [facility] [id number] [address] [place] [phone] 02 Jul, 2017 [facility] [address] [facility] [id number] [address] [place] [phone] Jul, [facility] [address] [facility] [id number] [address] [place] [phone] 21 Jun, 2017 Exudative tonsillitis J03.90 [facility] [address] [facility] [id number] [address] [place] [phone] 20 Jun, 2017 [facility] [address] [facility] [id number] [address] [place] [phone] 19 Jun, 2017 [facility] [address] [phone] 15 Jun, 2017 Mild persistent asthma witho ut complication J45.30 ; Chronic obstructive pulmonary disease, unspecified COPD type J44.9 and Exudative tonsillitis J03.90 [facility] [address] [place] [phone] 13 Jun, 2017 Encounter for immunization Z 23 [facility] [address] [place] [id number] [address] [place] [phone] 12 Jun, 2017 [facility] [address] [place] [id number] [address] [place] [phone] 12 Jun, 2017 [facility] [address] [place] [phone] 09 Jun, 2017 [facility] [address] [facility] [id number] [address] [place] [phone] 06 Jun, 2017 Tonsillitis J03.90 [facility] [address] [facility] [id number] [address] [place] [phone] 05 Jun, 2017 [facility] [address] [facility] [id number] [address] [place] [phone] 03 Jun, 2017 Acute non-recurrent maxillar y sinusitis J01.00 [facility] [address] [place] [phone] Jun, [facility] [address] [address] May, [facility] [address] [place] [id number] [address] [place] [phone] May, [facility] [address] [phone] May, GERD (gastroesophageal reflu x disease) K21.9 [facility] [address] [phone] May, Migraine without aura and wi thout status migrainosus, not intractable G43.009 [place] [address] [address] May, [place] [address] [address] May, [facility] [address] [address] May, Panlobular emphysema J43.1 a nd Acute non-recurrent maxillary sinusitis J01.00 [place] [address] [address] May, Bipolar 1 disorder, depresse d, moderate F31.32 ; Panic disorder with agoraphobia F40.01 and Akathisia G25.71 [facility] [address] [address] Apr, [place] [address] [address] Apr, [place] [address] [address] Apr, Acute non-recurrent maxillar y sinusitis J01.00 [place] [address] [address] Apr, Panlobular emphysema J43.1 [facility] [address] [facility] [id number] [address] [place] [phone] Apr, [facility] [address] [facility] [id number] [address] [place] [phone] Apr, Exudative tonsillitis J03.90 and Sore throat J02.9 [facility] [address] [facility] [id number] [address] [place] [phone] Mar, [facility] [address] [facility] [id number] [address] [place] [phone] Mar, Acute non-recurrent maxillar y sinusitis J01.00 [place] [address] [facility] [id number] [address] [place] [phone] Mar, [facility] [address] [place] [id number] [place] [phone] Mar, Panlobular emphysema J43.1 a nd Diabetes E11.9 [facility] [address] [facility] [id number] [address] [place] [phone] Mar, [facility] [address] [facility] [id number] [address] [place] [phone] Feb, Wheezing R06.2 and Acute rec urrent pansinusitis J01.41 [facility] [address] [facility] [id number] [address] [place] [phone] Feb, [facility] [address] [facility] [id number] [address] [place] [id number] Feb, Acute non-recurrent maxillar y sinusitis J01.00 [facility] [address] [facility] [id number] [address] [place] [phone] Feb, Chronic obstructive pulmonar y disease, unspecified J44.9 [facility] [address] [facility] [id number] [address] [place] [phone] Feb, Hypoxemia R09.02 and Chronic obstructive pulmonary disease, unspecified J44.9 [facility] [address] [facility] [id number] [address] [place] [phone] 28 Jan, 2017 Bipolar 1 disorder, depresse d, moderate F31.32 ; Panic disorder with agoraphobia F40.01 ; Chronic post-traumatic stress disorder (PTSD) F43.12 ; Diabetes E11.9 and Moderate persistent asthma without complication J45.40 [facility] [address] [id number] [address] [place] [phone] Jan, [facility] [address] [id number] [address] [place] [phone] Jan, Acute non-recurrent maxillar y sinusitis J01.00 [place] [address] [facility] [id number] [address] [place] [phone] Jan, [place] [address] [id number] [address] [place] [phone] Jan, [facility] [address] [id number] [address] [place] [phone] Jan, [facility] J[facility].40 and Hypoxemia R09.02 [place] [address] [facility] [id number] [address] [place] [phone] Jan, Moderate persistent asthma w [facility] complication J45.40 and Hypoxemia R09.02 [place] [address] [facility] [id number] [address] [place] [phone] Jan, [facility] [address] [id number] [address] [place] [phone] Dec, Acute non-recurrent maxillar y sinusitis J01.00 [facility] [address] [facility] [id number] [address] [place] [address] Dec, Chronic obstructive pulmonar y disease, unspecified J44.9 [facility] [address] [facility] [id number] [address] [place] [address] Dec, [place] [address] [facility] [id number] [address] [place] [phone] Dec, Mild persistent asthma witho ut complication J45.30 and Other chronic pain G89.29 [facility] [address] [facility] [id number] [address] [place] [phone] Nov, [facility] [address] [facility] [id number] [address] [place] [id number] Nov, Acute non-recurrent maxillar y sinusitis J01.00 [facility] [address] [facility] [id number] [address] [place] [phone] Nov, [place] [address] [place] [id number] [place] [phone] Nov, [place] [address] [place] [id number] [address] [place] [phone] Oct, [place] [address] [place] [id number] [address] [place] [phone] Oct, Bipolar 1 disorder, depresse d, partial remission F31.75 ; Panic disorder with agoraphobia F40.01 and Chronic post-traumatic stress disorder (PTSD) F43.12 [place] [address] [place] [id number] [address] [place] [phone] Oct, Acute non-recurrent maxillar y sinusitis J01.00 [place] [address] [facility] [id number] [address] [place] [phone] Oct, [facility] [address] [place] [id number] [address] [place] [phone] Oct, Diabetes E11.9 [place] [address] [facility] [id number] [address] [place] [phone] September, Diabetes E11.9 [place] [address] [facility] [id number] [address] [place] [phone] September, Diabetes E11.9 and Sinus tac hycardia R00.0 [place] [address] [facility] [id number] [address] [place] [phone] September, [facility] [address] [facility] [id number] [address] [place] [phone] September, [facility] [address] [place] [id number] [address] [place] [phone] Aug, Diabetes E11.9 and Lumbago w ith sciatica, right side M54.41 [facility] [address] [place] [id number] [address] [place] [phone] Aug, [facility] [address] [place] [id number] [address] [place] [phone] Jul, Bipolar 1 disorder, depresse d, moderate F31.32 ; Panic disorder with agoraphobia F40.01 and Chronic post-traumatic stress disorder (PTSD) F43.12 [facility] [id number] [place] [phone] Jul, Sore throat J02.9 [facility] [address] [facility] [id number] [address] [place] [id number] Jul, [facility] [address] [place] [id number] [address] [place] [phone] Jul, [facility] [address] [place] [id number] [address] [place] [phone] Jul, [facility] [address] [place] [id number] [address] [place] [phone] Jul, [facility] [address] [facility] [id number] [address] [place] [id number] Jul, Sore throat J02.9 and Pharyn gitis, unspecified etiology J02.9 [facility] [address] [facility] [id number] [address] [place] [phone] Jun, [facility] [address] [place] [id number] [address] [place] [phone] Jun, Diabetes E11.9 [facility] [address] [place] [id number] [address] [place] [phone] Jun, [facility] [address] [id number] [address] [place] [phone] Jun, [facility] [address] [id number] [address] [place] [phone] Jun, [facility] [address] [id number] [address] [place] [phone] Jun, [facility] [address] [id number] [address] [place] [phone] Jun, [facility] [address] [id number] [address] [place] [phone] Jun, [facility] [address] [id number] [address] [place] [phone] Jun, [facility] [address] [id number] [address] [place] [phone] Jun, [facility] [address] [id number] [address] [place] [phone] May, Diabetes E11.9 ; Other chron ic pain G89.29 ; Acute recurrent maxillary sinusitis J01.01 ; Bipolar I disorder with depression F31.9 and Anxiety disorder, unspecified F41.9 [facility] [address] [id number] [address] [place] [phone] May, [facility] [address] [id number] [address] [place] [phone] May, Diabetes E11.9 ; Bipolar I d isorder with depression F31.9 ; Anxiety disorder, unspecified F41.9 ; Other chronic pain G89.29 and Acute recurrent maxillary sinusitis J01.01 [facility] [address] [id number] [address] [place] [phone] May, [facility] [address] [facility] [id number] [address] [place] [phone] May, Attention deficit hyperactiv ity disorder (ADHD), predominantly inattentive type F90.0 [facility] [address] [id number] [address] [place] [phone] May, [facility] [address] [facility] [id number] [address] [place] [phone] Apr, Attention deficit hyperactiv ity disorder (ADHD), predominantly inattentive type F90.0 and Non-seasonal allergic rhinitis due to other allergic trigger J30.89 [facility] [address] [id number] [address] [place] [phone] 15 Apr, 2016 Bipolar 1 disorder, depresse d, moderate F31.32 ; Panic disorder with agoraphobia F40.01 and Chronic post-traumatic stress disorder (PTSD) F43.12 [place] [address] [place] [id number] [address] [place] [phone] 06 Apr, 2016 Dental examination Z01.20 [facility] [address] [facility] [id number] [address] [place] [phone] Mar, [facility] [address] [facility] [id number] [address] [place] [phone] Mar, [place] [address] [place] [id number] [address] [place] [phone] Mar, Bipolar I disorder with depr ession F31.9 and Anxiety disorder, unspecified F41.9 [place] [address] [facility] [id number] [address] [place] [phone] 08 Mar, 2016 Panic disorder with agorapho syd F40.01 ; Bipolar 1 disorder, depressed, moderate F31.32 and Chronic post-traumatic stress disorder (PTSD) F43.12 [facility] [address] [facility] [id number] [address] [place] [phone] 04 Mar, 2016 [place] [address] [facility] [id number] [address] [place] [phone] 02 Mar, 2016 Dental caries K02.9 [place] [address] [place] [id number] [address] [place] [phone] 24 Feb, 2016 Lumbago with sciatica, left side M54.42 ; Lumbago with sciatica, right side M54.41 and Other chronic pain G89.29 [facility] [address] [facility] [id number] [address] [place] [phone] 17 Feb, 2016 [facility] [address] [place] [id number] [place] [phone] 14 Feb, 2016 [facility] [address] [place] [id number] [place] [phone] 13 Feb, 2016 Bipolar I disorder with depr ession F31.9 ; PTSD (post-traumatic stress disorder) F43.10 and Mood disorder F39 [facility] [address] [place] [id number] [place] [phone] 13 Feb, 2016 [facility] [address] [phone] 11 Feb, 2016 Dental examination Z01.20 [facility] [address] [phone] 07 Feb, 2016 [facility] [address] [place] [id number] [place] [phone] 03 Feb, 2016 Acute bronchitis, unspecifie d organism J20.9 [facility] [address] [place] [id number] [address] [place] [phone] Jan, Mood disorder F39 ; Migraine without aura and without status migrainosus, not intractable G43.009 ; Irritable bowel syndrome, unspecified type K58.9 ; Diabetes E11.9 and Encounter for immunization Z23 [facility] [address] [place] [id number] [address] [place] [phone] 15 Jan, 2016 [facility] [address] [place] [id number] [place] [phone] 06 Jan, 2016 [facility] [address] [place] [id number] [address] [place] [phone] Jan, [facility] [address] [id number] [address] [place] [phone] Jan, [facility] [address] [facility] [id number] [address] [place] [phone] Jan, [facility] [address] [facility] [id number] [address] [place] [phone] Dec, Bipolar I disorder with depr ession F31.9 ; PTSD (post-traumatic stress disorder) F43.10 and Panic disorder with agoraphobia F40.01 [facility] [address] [facility] [id number] [address] [place] [phone] Dec, Chronic obstructive pulmonar y disease, unspecified COPD type J44.9 ; Tremor R25.1 and Anxiety F41.9 [facility] [address] [facility] [id number] [address] [place] [phone] Dec, [facility] [address] [facility] [id number] [address] [place] [phone] Nov, Tremors of nervous system R2 5.1 and Cramping of feet R25.2 [facility] [address] [facility] [id number] [address] [place] [phone] Nov, [facility] [address] [facility] [id number] [address] [place] [phone] Nov, [facility] [address] [facility] [id number] [address] [place] [phone] Oct, Chronic obstructive pulmonar y disease, unspecified J44.9 [facility] [address] [facility] [id number] [address] [place] [phone] Oct, [facility] [address] [facility] [id number] [address] [place] [phone] Oct, Tremor R25.1 [facility] [address] [facility] [id number] [address] [place] [phone] Oct, Bipolar I disorder with depr ession F31.9 ; Diabetes E11.9 ; PTSD (post-traumatic stress disorder) F43.10 and Panic disorder with agoraphobia F40.01 [facility] [address] [facility] [id number] [address] [place] [phone] Oct, Mood disorder F39 [facility] [address] [facility] [id number] [address] [place] [phone] September, [facility] [address] [place] [id number] [address] [place] [phone] September, Diabetes E11.9 ; Bipolar I d isorder with depression F31.9 ; PTSD (post-traumatic stress disorder) F43.10 and Panic disorder with agoraphobia F40.01 [place] [address] [facility] [id number] [address] [place] [phone] September, Mood disorder F39 ; Schizoaf fective disorder, unspecified type F25.9 ; Arthritis M19.90 ; Tremor R25.1 ; Acute non-recurrent frontal sinusitis J01.10 and Blood in stool K92.1 [place] [address] [place] [id number] [address] [place] [phone] September, [facility] [address] [facility] [id number] [address] [place] [phone] September, Chronic obstructive pulmonar y disease, unspecified J44.9 [place] [address] [facility] [id number] [address] [place] [phone] September, Diabetes E11.9 [facility] [address] [facility] [id number] [address] [place] [phone] Aug, Other bipolar disorder F31.8 9 and Anxiety disorder, unspecified F41.9 [facility] [address] [facility] [id number] [address] [place] [phone] Aug, [place] [address] [place] [id number] [address] [place] [phone] Aug, Diabetes E11.9 [place] [address] [facility] [id number] [address] [place] [phone] 18 Aug, 2015 [facility] [address] [id number] [address] [place] [phone] 14 Aug, 2015 Diabetes E11.9 ; Fatigue R53 .83 and Dizziness R42 [facility] [address] [id number] [address] [place] [phone] 13 Aug, 2015 Other bipolar disorder F31.8 9 [facility] [address] [id number] [address] [place] [phone] Aug, Generalized anxiety disorder F41.1 [facility] [address] [id number] [address] [place] [phone] Aug, Other bipolar disorder F31.8 9 and Anxiety disorder, unspecified F41.9 [facility] [address] [id number] [address] [place] [phone] Aug, [facility] [address] [id number] [address] [place] [phone] 29 Jul, 2015 [facility] [address] [id number] [address] [place] [phone] 24 Jul, 2015 [facility] [address] [id number] [address] [place] [phone] 23 Jul, 2015 Bronchitis J40 [facility] [address] [id number] [address] [place] [phone] Jul, Anxiety disorder F41.9 [facility] [address] [id number] [address] [place] [phone] Jul, Other bipolar disorder F31.8 9 and Anxiety disorder, unspecified F41.9 [facility] [address] [id number] [address] [place] [phone] 18 Jul, 2015 Other bipolar disorder F31.8 9 and Fibromyalgia M79.7 [facility] [address] [id number] [address] [place] [phone] 10 Jul, 2015 [facility] [address] [id number] [address] [place] [phone] Jul, [facility] [address] [facility] [id number] [address] [place] [phone] Jul, [facility] [address] [place] [id number] [address] [place] [phone] Jul, Other bipolar disorder F31.8 9 and Anxiety disorder, unspecified F41.9 [facility] [address] [facility] [id number] [address] [place] [phone] Jun, GERD (gastroesophageal reflu x disease) K21.9 [facility] [address] [facility] [id number] [place] [phone] Jun, [facility] [address] [place] [id number] [place] [phone] May, [facility] [address] [phone] May, Diabetes E11.9 ; Back pain M 54.9 ; GERD (gastroesophageal reflux disease) K21.9 ; Hypertension I10 and Peripheral neuropathy G62.9 [facility] [address] [place] [id number] [place] [phone] Mar, [facility] [address] [place] [id number] [place] [phone] Mar, [facility] [address] [address] Mar, Acute sinusitis J01.90 and O titis media, left H66.92 [facility] [address] [place] [id number] [address] [place] [phone] Feb, [facility] [address] [place] [id number] [place] [phone] Feb, [facility] [address] [place] [id number] [place] [phone] Feb, [facility] [address] [place] [address] Feb, [facility] [address] [facility] [id number] [address] [place] [phone] Jan, [facility] [address] [place] [id number] [address] [place] [phone] Jan, Diabetes 250.00 and Back higinio n 724.5 [facility] [address] [place] [id number] [place] [phone] Jan, [facility] [address] [place] [id number] [address] [place] [phone] Dec, Diabetes 250.00 ; Benign ess ential hypertension 401.1 and Allergic rhinitis 477.9 [facility] [address] [place] [id number] [address] [place] [phone] Dec, [facility] [address] [address] Dec, [facility] [address] [place] [id number] [address] [place] [phone] Dec, Psychosis 298.9 [facility] [address] [address] Dec, Medication side effect 995.2 0 and Generalized anxiety disorder 300.02 [facility] [address] [place] [id number] [address] [place] [phone] Dec, Acquired cognitive dysfuncti on 294.9 [facility] [address] [place] [id number] [address] [place] [phone] Dec, [facility] [address] [place] [id number] [place] [phone] Dec, Unspecified myalgia and myos itis 729.1 and Generalized anxiety disorder 300.02 [facility] [address] [place] [id number] [address] [place] [phone] Nov, [facility] [address] [place] [id number] [place] [address] [place] [address] Nov, [facility] [address] [id number] [address] [place] [phone] Nov, [facility] [address] [facility] [id number] [address] [place] [phone] Nov, Upper respiratory infection 465.9 and Chronic airway obstruction, not elsewhere classified 496 [facility] [address] [id number] [address] [place] [phone] Nov, Hyponatremia 276.1 [facility] [address] [id number] [address] [place] [phone] Oct, [facility] [address] [id number] [address] [place] [phone] Oct, [facility] [address] [facility] [id number] [address] [place] [phone] Oct, [facility] [address] [id number] [address] [place] [phone] Oct, [facility] [address] [id number] [address] [place] [phone] Oct, Hyponatremia 276.1 [facility] [address] [facility] [id number] [address] [place] [phone] Oct, [facility] [address] [id number] [address] [place] [phone] Oct, [facility] [address] [facility] [id number] [address] [place] [phone] Oct, Generalized anxiety disorder 300.02 [facility] [address] [id number] [address] [place] [phone] Oct, Generalized anxiety disorder 300.02 and Diabetes 250.00 [facility] [address] [id number] [address] [place] [phone] 14 Aug, 2014 [facility] [address] [facility] [id number] [address] [place] [phone] Aug, [facility] [address] [id number] [address] [place] [address], [place] [address] Jul, [facility] [address] [id number] [address] [place] [address], [place] [address] Jul, [facility] [address] [id number] [address] [place] [address], [place] [address] Jun, [facility] [address] [id number] [address] [place] [address], [place] [address] Jun, [facility] [address] [id number] [address] [place] [address], [place] [address] Jun, [facility] [address] [id number] [address] [place] [address], [place] [address] Jun, [facility] [address] [id number] [address] [place] [address], [place] [address] Jun, [facility] [address] [id number] [address] [place] [address], [place] [id number] May, [facility] [address] [id number] [address] [place] [address], [place] [address] May, [facility] [address] [id number] [address] [place] [address], [place] [address] Apr, [facility] [address] [id number] [address] [place] [address], [place] [address] Apr, [facility] [address] [id number] [address] [place] [address], [place] [address] 18 Apr, 2013 [facility] [address] [id number] [address] [place] [address], [place] [id number] 18 Apr, 2013 [facility] [address] [id number] [address] [place] [address], [place] [address] 17 Apr, 2013 [facility] [address] [id number] [address] [place] [address], [place] [address] Apr, [facility] [address] [id number] [address] [place] [address], [place] [address] Apr, [facility] [address] [id number] [address] [place] [address], [place] [address] Apr, [facility] [address] [id number] [address] [place] [address], [place] [address] Feb, [facility] [address] [id number] [address] [place] [address], [place] [address] Feb, [facility] [address] [id number] [address] [place] [address], [place] [address] Jan, [facility] [address] [id number] [address] [place] [address], [place] [address] Jan, [facility] [address] [id number] [address] [place] [address], [place] [address] Dec, [facility] [address] [id number] [address] [place] [address], [place] [address] Dec, [facility] [address] [id number] [address] [place] [address], [place] [address] Dec, [facility] [address] [id number] [address] [place] [address], [place] [address] Nov, [facility] [address] [id number] [address] [place] [address], [place] [address] Nov, [facility] [address] [id number] [address] [place] [address], [place] [address] Nov, [facility] [address] [id number] [address] [place] [address], [place] [address] Oct, [facility] [address] [id number] [address] [place] [address], [place] [address] Oct, [facility] [address] [id number] [address] [place] [address], [place] [address] Oct, [facility] [address] [id number] [address] [place] [address], [place] [address] September, [facility] [address] [id number] [address] [place] [address], [place] [address] September, [facility] [address] [id number] [address] [place] [address], [place] [address] September, [facility] [address] [id number] [address] [place] [address], [place] [address] Aug, [facility] [address] [id number] [address] [place] [address], [place] [address] Aug, [facility] [address] [id number] [address] [place] [address], [place] [address] Aug, [facility] [address] [id number] [address] [place] [address], [place] [address] 16 Aug, 2011 [facility] [address] [id number] [address] [place] [address], [place] [address] Jul, [facility] [address] [id number] [address] [place] [address], [place] [address] Jun, [facility] [address] [id number] [address] [place] [address], [place] [address] 14 Jun, 2011 [facility] [address] [id number] [address] [place] [address], [place] [address] Jun, [facility] [address] [id number] [address] [place] [address], [place] [id number] 07 Jun, 2011 [facility] [address] [id number] [address] [place] [address], [place] [address] Jun, [facility] [address] [id number] [address] [place] [address], [place] [address] May, [facility] [address] [id number] [address] [place] [address], [place] [address] May, [facility] [address] [id number] [address] [place] [address], [place] [address] May, [facility] [address] [id number] [address] [place] [address], [place] [id number] 04 May, 2011 [facility] [address] [id number] [address] [place] [address], [place] [address] Apr, [facility] [address] [id number] [address] [place] [address], [place] [id number] 13 Apr, 2011 [facility] [address] [id number] [address] [place] [address], [place] [id number] 05 Apr, 2011 [facility] [address] [id number] [address] [place] [address], [place] [address] Mar, [facility] [address] [id number] [address] [place] [address], [place] [id number] Mar, [facility] [address] [id number] [address] [place] [address], [place] [address] Mar, [facility] [address] [id number] [address] [place] [address], [place] [address] Feb, [facility] [address] [id number] [address] [place] [address], [place] [id number] Feb, [facility] [address] [id number] [address] [place] [address], [place] [id number] Feb, [facility] [address] [id number] [address] [place] [address], [place] [id number] Nov, [facility] [address] [id number] [address] [place] [address], [place] [id number] September, [facility] [address] [id number] [address] [place] [address], [place] [id number] 12 Aug, 2010 [facility] [address] [id number] [address] [place] [address], [place] [id number] 14 Jul, 2010 [facility] [address] [id number] [address] [place] [address], [place] [address] May, [facility] [address] [id number] [address] [place] [address], [place] [id number] Apr, [facility] [address] [facility] [id number] [address] [place] [id number] Apr, [facility] [address] [facility] [id number] [address] [place] [id number] Apr, [facility] [address] [facility] [id number] [address] [place] [id number] Apr, [facility] [address] [facility] [id number] [address] [place] [id number] Apr, IMMUNIZATIONS No Known Immunizations SOCIAL HISTORY [...]
--- OUTSIDE RECORDS SUMMARY | 2019-07-17 11:10 | XMS REPORT ---
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 Name Role Phone WHIT GANDHI Unavailable PROBLEMS Type Condition ICD9-CM Code QVO70-PM Code Onset Dates Condition S tatus SNOMED Code Problem Back pain M54.9 Active 623877729 Problem Diabetes E11.9 Active 23321212 Problem GERD (gastroesophageal reflux disease) K21.9 Active 834268242 Problem Hypertension I10 Active 2432192 3 Problem Anxiety disorder, unspecified F41.9 Active 182266426 Problem Other bipolar disorder F31.89 Active 43407683 Problem Fibromyalgia M79.7 Active 8403795 7 Problem Panic disorder with agoraphobia F40.01 Active 77759702 Problem Panlobular emphysema J43.1 Active 6335591 Problem Chronic obstructive pulmonary disease, unspecified J44.9 Active 55375169 Problem Akathisia G25.71 Active 750348143 Problem Lumbago with sciatica, left side M54.42 Active 659091786 Problem Migraine without aura and without status migrain osus, not intractable G43.009 Active 012094657 Problem Fibrocystic disease of right breast N60.11 Active 46654420 Problem Fibrocystic disease of left breast N60.12 Active 37463134 Problem Slow transit constipation K59.01 Acti ve 93198540 Problem Essential tremor G25.0 Active 609 384539 Problem Bipolar 1 disorder, depressed, moderate F31.32 Active 99023590 Problem Other chronic pain G89.29 Active 8 7517629 Problem Lumbago with sciatica, right side M54.41 Active 535911030 Problem Irritable bowel syndrome with constipation K58.1 Active 847547905 Problem Arthritis M19.90 Active 3292101 Problem Schizoaffective disorder, bipolar type F25.0 Active 19567874 Problem Irritable bowel syndrome with both constipation and diarrh ea K58.2 Active 31633981 Problem Attention deficit hyperactiv ity disorder (ADHD), predominantly inattentive type F90.0 Active 31793523 Problem Bipolar I disorder with depression F31.9 Active 10810112 Problem Chronic post-traumatic stress disorder (PTSD) F43. 12 Active 292597275 Problem Bipolar affective disorder, remission status unspecified F31.9 Active 26382175 Problem Mild persistent asthma without complication J45.30 Active 183967193 Problem Moderate persistent asthma without complication J4 5.40 Active 325828544 Problem Acute non-recurrent maxillary sinusitis J01.00 Active 27883949 Problem Bipolar 1 disorder, depressed, partial remission F 31.75 Active 35993713 ALLERGIES Substance Reaction Event Type Date Status Penicillin V Potassium Unknown Drug Allergy Aug, Activ e Effexor anaphylaxis Drug Allergy Aug, Active Darvocet-N 50 Unknown Drug Allergy Aug, Active Cefdinir Swelling Drug Allergy Aug, Active Benadryl vomiting/swelling Drug Allergy Aug, Active ENCOUNTERS Encounter Location Date Diagnosis [place] [address] [place] [id number] [address] [place] [id number] Mar, [place] [address] [place] [id number] [address] [place] [address] Dec, [place] [address] [address] Nov, Bipolar 1 disorder, depresse d, partial remission F31.75 and Panic disorder with agoraphobia F40.01 [facility] [address] [place] [id number] [address] [place] [id number] Nov, [facility] [address] [place] [id number] [address] [place] [address] Nov, Cerebrovascular accident (CV A) due to occlusion of right cerebellar artery I63.541 and Acute non-recurrent maxillary sinusitis J01.00 [facility] [address] [facility] [id number] [address] [place] [address] Nov, Panlobular emphysema J43.1 [facility] [address] [place] [id number] [address] [place] [address] Nov, [facility] [address] [id number] [address] [place] [address] Nov, [facility] [address] [id number] [address] [place] [address] Nov, [facility] [address] [facility] [id number] [address] [place] [id number] Nov, [facility] [address] [facility] [id number] [address] [place] [id number] Nov, [facility] [address] [id number] [address] [place] [address] Nov, [facility] [address] [facility] [id number] [address] [place] [phone] Nov, [facility] [address] [facility] [id number] [address] [place] [address] Nov, Mild persistent asthma witho ut complication J45.30 and Irritable bowel syndrome with both constipation and diarrhea K58.2 [facility] [address] [facility] [id number] [address] [place] [address] Nov, [facility] [address] [facility] [id number] [address] [place] [id number] Oct, [facility] [address] [facility] [id number] [address] [place] [address] Oct, [facility] [address] [facility] [id number] [address] [place] [address] Oct, Type 2 diabetes mellitus wit h diabetic neuropathy, unspecified whether halfway insulin use E11.40 ; Diabetes E11.9 ; Slow transit constipation K59.01 ; Edema of both legs R60.0 and Dysfunction of right eustachian tube H69.81 [facility] [address] [facility] [id number] [address] [place] [id number] Oct, Frequent headaches R51 [facility] [address] [facility] [id number] [address] [place] [id number] Oct, [facility] [address] [id number] [address] [place] [address] Oct, [facility] [address] [id number] [address] [place] [id number] Oct, [facility] [address] [id number] [address] [place] [id number] Oct, [facility] [address] [id number] [address] [place] [phone] Oct, [facility] [address] [id number] [address] [place] [id number] Oct, [facility] [address] [id number] [address] [place] [phone] Oct, [facility] [address] [facility] [id number] [address] [place] [id number] Oct, [facility] [address] [id number] [address] [place] [id number] September, Frequent headaches R51 [facility] [address] [facility] [id number] [address] [place] [address] September, Bilateral otitis media with effusion H65.93 ; Dizziness R42 and Essential tremor G25.0 [facility] [address] [facility] [id number] [address] [place] [address] September, Chronic obstructive pulmonar y disease, unspecified COPD type J44.9 [facility] [address] [facility] [id number] [address] [place] [address] September, Chronic obstructive pulmonar y disease, unspecified COPD type J44.9 [facility] [address] [facility] [id number] [address] [place] [address] September, Migraine without aura and wi thout status migrainosus, not intractable G43.009 [facility] [address] [facility] [id number] [address] [place] [id number] September, [facility] [address] [facility] [id number] [address] [place] [phone] September, [facility] [address] [facility] [id number] [address] [place] [id number] September, [facility] [address] [facility] [id number] [address] [place] [address] September, Frequent headaches R51 [facility] [address] [facility] [id number] [address] [place] [id number] Aug, [facility] [address] [facility] [id number] [address] [place] [address] Aug, Breast mass, right N63.10 [place] [address] [place] [id number] [address] [place] [address] Aug, Breast lump N63.0 [place] [address] [place] [id number] [address] [place] [address] Aug, [facility] [address] [place] [id number] [address] [place] [phone] Aug, Bipolar affective disorder, remission status unspecified F31.9 and Diabetes E11.9 [place] [address] [place] [id number] [address] [place] [address] Aug, Diabetes E11.9 ; Schizoaffec tive disorder, bipolar type F25.0 ; Pharyngitis due to other organism J02.8 ; Panlobular emphysema J43.1 and Irritable bowel syndrome with both constipation and diarrhea K58.2 [place] [address] [place] [id number] [address] [place] [address] Aug, Abnormal mammogram R92.8 [place] [address] [place] [id number] [address] [place] [address] Aug, [place] [address] [place] [id number] [address] [place] [id number] Aug, Bipolar 1 disorder, depresse d, moderate F31.32 ; Panic disorder with agoraphobia F40.01 and Chronic post-traumatic stress disorder (PTSD) F43.12 [facility] [address] [id number] [address] [place] [id number] Aug, [facility] [address] [id number] [address] [place] [id number] Aug, [facility] [address] [id number] [address] [place] [id number] Aug, [facility] [address] [id number] [address] [place] [id number] Jul, [facility] [address] [id number] [address] [place] [address] Jul, Mild persistent asthma witho ut complication J45.30 [facility] [address] [facility] [id number] [address] [place] [id number] Jul, Mild persistent asthma witho ut complication J45.30 [facility] [address] [facility] [id number] [address] [place] [id number] Jul, Bipolar affective disorder, remission status unspecified F31.9 ; Diabetes E11.9 and Irritable bowel syndrome with constipation K58.1 [facility] [address] [facility] [id number] [address] [place] [id number] Jul, [facility] [address] [facility] [id number] [address] [place] [id number] Jul, [facility] [address] [id number] [address] [place] [address] Jul, Frequent headaches R51 [facility] [address] [id number] [address] [place] [id number] Jul, [facility] [address] [facility] [id number] [address] [place] [address] Jul, [facility] [address] [facility] [id number] [address] [place] [id number] Jul, [facility] [address] [facility] [address] [place] [address] Jul, Frequent headaches R51 ; Fib rocystic disease of left breast N60.12 ; Fibrocystic disease of right breast N60.11 and Diabetes E11.9 [facility] [address] [address] Jul, [facility] [address] [id number] Jul, [place] [address] [address] Jun, Exudative tonsillitis J03.90 [place] [address] [address] Jun, [place] [address] [address] 19 Jun, 2017 [place] [address] [id number] 15 Jun, 2017 Mild persistent asthma witho ut complication J45.30 ; Chronic obstructive pulmonary disease, unspecified COPD type J44.9 and Exudative tonsillitis J03.90 [place] [address] [id number] 13 Jun, 2017 Encounter for immunization Z 23 [place] [address] [address] Jun, [place] [address] [address] Jun, [place] [address] [address] Jun, [facility] [address] [id number] 06 Jun, 2017 Tonsillitis J03.90 [place] [address] [place] [id number] [address] [place] [address] 05 Jun, 2017 [facility] [address] [facility] [id number] [address] [place] [id number] 03 Jun, 2017 Acute non-recurrent maxillar y sinusitis J01.00 [facility] [address] [facility] [id number] [address] [place] [id number] 02 Jun, 2017 [facility] [address] [place] [id number] [place] [address] May, [facility] [address] [id number] May, [facility] [address] [address] May, GERD (gastroesophageal reflu x disease) K21.9 [place] [address] [address] May, Migraine without aura and wi thout status migrainosus, not intractable G43.009 [facility] [address] [address] May, [facility] [address] [address] May, [facility] [address] [address] May, Panlobular emphysema J43.1 a nd Acute non-recurrent maxillary sinusitis J01.00 [facility] [address] [address] May, Bipolar 1 disorder, depresse d, moderate F31.32 ; Panic disorder with agoraphobia F40.01 and Akathisia G25.71 [place] [address] [address] Apr, [place] [address] [address] Apr, [facility] [address] [place] [address] 13 Apr, 2017 Acute non-recurrent maxillar y sinusitis J01.00 [facility] [address] [id number] [address] [place] [address] 07 Apr, 2017 Panlobular emphysema J43.1 [facility] [address] [facility] [id number] [address] [place] [address] 04 Apr, 2017 [facility] [address] [id number] [address] [place] [id number] 04 Apr, 2017 Exudative tonsillitis J03.90 and Sore throat J02.9 [facility] [address] [facility] [id number] [address] [place] [id number] 17 Mar, 2017 [facility] [address] [facility] [id number] [address] [place] [id number] 15 Mar, 2017 Acute non-recurrent maxillar y sinusitis J01.00 [facility] [address] [facility] [id number] [address] [place] [id number] 13 Mar, 2017 [facility] [address] [facility] [id number] [address] [place] [id number] 09 Mar, 2017 Panlobular emphysema J43.1 a nd Diabetes E11.9 [facility] [address] [facility] [id number] [address] [place] [id number] 06 Mar, 2017 [facility] [address] [facility] [id number] [address] [place] [id number] Feb, Wheezing R06.2 and Acute rec urrent pansinusitis J01.41 [facility] [address] [facility] [id number] [address] [place] [id number] Feb, [facility] [address] [facility] [id number] [address] [place] [id number] Feb, Acute non-recurrent maxillar y sinusitis J01.00 [facility] [address] [facility] [id number] [address] [place] [address] Feb, Chronic obstructive pulmonar y disease, unspecified J44.9 [facility] [address] [id number] [address] [place] [address] Feb, Hypoxemia R09.02 and Chronic obstructive pulmonary disease, unspecified J44.9 [facility] [address] [facility] [id number] [address] [place] [id number] 28 Jan, 2017 Bipolar 1 disorder, depresse d, moderate F31.32 ; Panic disorder with agoraphobia F40.01 ; Chronic post-traumatic stress disorder (PTSD) F43.12 ; Diabetes E11.9 and Moderate persistent asthma without complication J45.40 [facility] [address] [id number] [address] [place] [id number] 22 Jan, 2017 [facility] [address] [id number] [address] [place] [id number] 19 Jan, 2017 Acute non-recurrent maxillar y sinusitis J01.00 [facility] [address] [id number] [address] [place] [id number] 18 Jan, 2017 [facility] [address] [id number] [address] [place] [id number] Jan, [facility] [address] [facility] [id number] [address] [place] [address] Jan, [facility] J[facility].40 and Hypoxemia R09.02 [facility] [address] [id number] [address] [place] [id number] Jan, Moderate persistent asthma w ithout complication J45.40 and Hypoxemia R09.02 [facility] [address] [id number] [address] [place] [id number] Jan, [facility] [address] [facility] [id number] [address] [place] [id number] Dec, Acute non-recurrent maxillar y sinusitis J01.00 [facility] [address] [facility] [id number] [address] [place] [address] Dec, Chronic obstructive pulmonar y disease, unspecified J44.9 [facility] [address] [id number] [address] [place] [address] Dec, [facility] [address] [facility] [id number] [address] [place] [id number] Dec, Mild persistent asthma witho ut complication J45.30 and Other chronic pain G89.29 [facility] [address] [id number] [address] [place] [id number] Nov, [facility] [address] [id number] [address] [place] [id number] Nov, Acute non-recurrent maxillar y sinusitis J01.00 [facility] [address] [facility] [id number] [address] [place] [phone] Nov, [place] [address] [facility] [id number] [address] [place] [phone] Nov, [facility] [place] [address] [facility] [id number] [address] [place] [phone] Oct, [facility] [place] [address] [facility] [id number] [address] [place] [id number] Oct, Bipolar 1 disorder, depresse d, partial remission F31.75 ; Panic disorder with agoraphobia F40.01 and Chronic post-traumatic stress disorder (PTSD) F43.12 [facility] [place] [address] [facility] [id number] [address] [place] [phone] Oct, Acute non-recurrent maxillar y sinusitis J01.00 [facility] [place] [address] [facility] [id number] [address] [place] [phone] Oct, [facility] [place] [address] [facility] [id number] [address] [place] [phone] Oct, Diabetes E11.9 [facility] [place] [address] [facility] [id number] [address] [place] [id number] September, Diabetes E11.9 [facility] [place] [address] [place] [id number] [address] [place] [phone] September, Diabetes E11.9 and Sinus tac hycardia R00.0 [facility] [place] [address] [facility] [id number] [address] [place] [id number] September, [facility] [place] [address] [place] [id number] [address] [place] [phone] September, [facility] [place] [address] [facility] [id number] [address] [place] [id number] Aug, Diabetes E11.9 and Lumbago w ith sciatica, right side M54.41 [facility] [place] [address] [place] [id number] [address] [place] [phone] Aug, [facility] [place] [address] [place] [id number] [address] [place] [id number] Jul, Bipolar 1 disorder, depresse d, moderate F31.32 ; Panic disorder with agoraphobia F40.01 and Chronic post-traumatic stress disorder (PTSD) F43.12 [facility] [place] [address] [place] [id number] [address] [place] [phone] Jul, Sore throat J02.9 [facility] [place] [address] [place] [id number] [address] [place] [id number] Jul, [facility] [place] [address] [id number] [address] [place] [id number] Jul, [facility] [place] [address] [facility] [id number] [address] [place] [phone] Jul, [facility] [place] [address] [facility] [id number] [address] [place] [phone] Jul, [facility] [place] [address] [facility] [id number] [address] [place] [id number] Jul, Sore throat J02.9 and Pharyn gitis, unspecified etiology J02.9 [facility] [place] [address] [id number] [address] [place] [id number] Jun, [facility] [place] [address] [id number] [address] [place] [id number] Jun, Diabetes E11.9 [facility] [place] [address] [id number] [address] [place] [id number] Jun, [facility] [place] [address] [id number] [address] [place] [phone] Jun, [facility] [place] [address] [id number] [address] [place] [id number] Jun, [facility] [place] [address] [id number] [address] [place] [id number] Jun, [facility] [place] [address] [id number] [address] [place] [id number] Jun, [facility] [place] [address] [id number] [address] [place] [id number] Jun, [facility] [place] [address] [id number] [address] [place] [id number] Jun, [facility] [place] [address] [id number] [address] [place] [address] Jun, [facility] [place] [address] [id number] [address] [place] [address] May, Diabetes E11.9 ; Other chron ic pain G89.29 ; Acute recurrent maxillary sinusitis J01.01 ; Bipolar I disorder with depression F31.9 and Anxiety disorder, unspecified F41.9 [facility] [place] [address] [id number] [address] [place] [id number] May, [facility] [place] [address] [id number] [address] [place] [address] May, Diabetes E11.9 ; Bipolar I d isorder with depression F31.9 ; Anxiety disorder, unspecified F41.9 ; Other chronic pain G89.29 and Acute recurrent maxillary sinusitis J01.01 [place] [address] [facility] [id number] [address] [place] [id number] May, [place] [address] [facility] [id number] [address] [place] [id number] May, Attention deficit hyperactiv ity disorder (ADHD), predominantly inattentive type F90.0 [place] [address] [facility] [id number] [address] [place] [address] May, [place] [address] [facility] [id number] [address] [place] [id number] Apr, Attention deficit hyperactiv ity disorder (ADHD), predominantly inattentive type F90.0 and Non-seasonal allergic rhinitis due to other allergic trigger J30.89 [place] [address] [facility] [id number] [address] [place] [address] Apr, Bipolar 1 disorder, depresse d, moderate F31.32 ; Panic disorder with agoraphobia F40.01 and Chronic post-traumatic stress disorder (PTSD) F43.12 [place] [address] [facility] [id number] [address] [place] [address] Apr, Dental examination Z01.20 [place] [address] [facility] [id number] [address] [place] [address] Mar, [place] [address] [id number] [address] [place] [id number] Mar, [place] [address] [facility] [id number] [address] [place] [address] Mar, Bipolar I disorder with depr ession F31.9 and Anxiety disorder, unspecified F41.9 [place] [address] [facility] [id number] [address] [place] [id number] 08 Mar, 2016 Panic disorder with agorapho syd F40.01 ; Bipolar 1 disorder, depressed, moderate F31.32 and Chronic post-traumatic stress disorder (PTSD) F43.12 [place] [address] [facility] [id number] [address] [place] [phone] Mar, [facility] [place] [address] [facility] [id number] [address] [place] [id number] 02 Mar, 2016 Dental caries K02.9 [facility] [place] [address] [facility] [id number] [address] [place] [id number] 24 Feb, 2016 Lumbago with sciatica, left side M54.42 ; Lumbago with sciatica, right side M54.41 and Other chronic pain G89.29 [place] [address] [facility] [id number] [address] [place] [address] 17 Feb, 2016 [facility] [place] [address] [facility] [id number] [address] [place] [id number] 14 Feb, 2016 [place] [address] [place] [id number] [place] [phone] 13 Feb, 2016 Bipolar I disorder with depr ession F31.9 ; PTSD (post-traumatic stress disorder) F43.10 and Mood disorder F39 [place] [address] [id number] [address] [place] [id number] 13 Feb, 2016 [place] [address] [facility] [id number] [address] [place] [id number] 11 Feb, 2016 Dental examination Z01.20 [place] [address] [place] [id number] [address] [place] [id number] 07 Feb, 2016 [facility] [address] [facility] [id number] [address] [place] [id number] 03 Feb, 2016 Acute bronchitis, unspecifie d organism J20.9 [facility] [place] [address] [facility] [id number] [address] [place] [id number] 26 Jan, 2016 Mood disorder F39 ; Migraine without aura and without status migrainosus, not intractable G43.009 ; Irritable bowel syndrome, unspecified type K58.9 ; Diabetes E11.9 and Encounter for immunization Z23 [facility] [place] [address] [facility] [id number] [address] [place] [address] 15 Jan, 2016 [place] [address] [id number] [address] [place] [address] Jan, [facility] [place] [address] [facility] [id number] [address] [place] [id number] Jan, [facility] [place] [address] [facility] [id number] [address] [place] [phone] Jan, [facility] [place] [address] [facility] [id number] [address] [place] [id number] Jan, [facility] [place] [address] [facility] [id number] [address] [place] [id number] Dec, Bipolar I disorder with depr ession F31.9 ; PTSD (post-traumatic stress disorder) F43.10 and Panic disorder with agoraphobia F40.01 [facility] [place] [address] [facility] [id number] [address] [place] [address] Dec, Chronic obstructive pulmonar y disease, unspecified COPD type J44.9 ; Tremor R25.1 and Anxiety F41.9 [facility] [place] [address] [facility] [id number] [address] [place] [address] Dec, [facility] [place] [address] [facility] [id number] [address] [place] [id number] Nov, Tremors of nervous system R2 5.1 and Cramping of feet R25.2 [facility] [place] [address] [facility] [id number] [address] [place] [id number] Nov, [facility] [place] [address] [facility] [id number] [address] [place] [id number] Nov, [facility] [place] [address] [facility] [id number] [address] [place] [address] Oct, Chronic obstructive pulmonar y disease, unspecified J44.9 [facility] [place] [address] [facility] [id number] [address] [place] [phone] Oct, [facility] [place] [address] [facility] [id number] [address] [place] [id number] Oct, Tremor R25.1 [facility] [place] [address] [facility] [id number] [address] [place] [id number] Oct, Bipolar I disorder with depr ession F31.9 ; Diabetes E11.9 ; PTSD (post-traumatic stress disorder) F43.10 and Panic disorder with agoraphobia F40.01 [place] [address] [facility] [id number] [address] [place] [address] Oct, Mood disorder F39 [place] [address] [facility] [id number] [address] [place] [address] September, [place] [address] [place] [id number] [place] [address] September, Diabetes E11.9 ; Bipolar I d isorder with depression F31.9 ; PTSD (post-traumatic stress disorder) F43.10 and Panic disorder with agoraphobia F40.01 [place] [address] [place] [id number] [address] [place] [address] September, Mood disorder F39 ; Schizoaf fective disorder, unspecified type F25.9 ; Arthritis M19.90 ; Tremor R25.1 ; Acute non-recurrent frontal sinusitis J01.10 and Blood in stool K92.1 [place] [address] [place] [id number] [address] [place] [id number] September, [place] [address] [id number] [address] [place] [id number] September, Chronic obstructive pulmonar y disease, unspecified J44.9 [place] [address] [facility] [id number] [address] [place] [address] September, Diabetes E11.9 [place] [address] [place] [id number] [address] [place] [address] Aug, Other bipolar disorder F31.8 9 and Anxiety disorder, unspecified F41.9 [place] [address] [id number] [address] [place] [id number] Aug, [facility] [place] [address] [id number] [address] [place] [address] Aug, Diabetes E11.9 [facility] [place] [address] [id number] [address] [place] [id number] 18 Aug, 2015 [facility] [place] [address] [facility] [id number] [address] [place] [id number] 14 Aug, 2015 Diabetes E11.9 ; Fatigue R53 .83 and Dizziness R42 [facility] [place] [address] [id number] [address] [place] [id number] 13 Aug, 2015 Other bipolar disorder F31.8 9 [facility] [place] [address] [id number] [address] [place] [id number] 07 Aug, 2015 Generalized anxiety disorder F41.1 [facility] [place] [address] [id number] [address] [place] [address] Aug, Other bipolar disorder F31.8 9 and Anxiety disorder, unspecified F41.9 [facility] [place] [address] [id number] [address] [place] [phone] Aug, [facility] [place] [address] [id number] [address] [place] [id number] 29 Jul, 2015 [facility] [place] [address] [id number] [address] [place] [id number] 24 Jul, 2015 [facility] [place] [address] [id number] [address] [place] [id number] Jul, Bronchitis J40 [facility] [place] [address] [id number] [address] [place] [address] Jul, Anxiety disorder F41.9 [facility] [place] [address] [id number] [address] [place] [id number] Jul, Other bipolar disorder F31.8 9 and Anxiety disorder, unspecified F41.9 [facility] [place] [address] [id number] [address] [place] [id number] Jul, Other bipolar disorder F31.8 9 and Fibromyalgia M79.7 [facility] [place] [address] [id number] [address] [place] [id number] Jul, [facility] [place] [address] [id number] [place] [phone] Jul, [facility] [place] [address] [id number] [address] [place] [id number] Jul, [facility] [place] [id number] [place] [address] Jul, Other bipolar disorder F31.8 9 and Anxiety disorder, unspecified F41.9 [facility] [place] [address] [id number] Jun, GERD (gastroesophageal reflu x disease) K21.9 [facility] [place] [address] [id number] Jun, [facility] [place] [address] [id number] May, [facility] [place] [address] [id number] May, Diabetes E11.9 ; Back pain M 54.9 ; GERD (gastroesophageal reflux disease) K21.9 ; Hypertension I10 and Peripheral neuropathy G62.9 [facility] [place] [address] [id number] Mar, [facility] [place] [address] [id number] Mar, [facility] [place] [address] [address] Mar, Acute sinusitis J01.90 and O titis media, left H66.92 [facility] [place] [id number] [place] [address] Feb, [facility] [place] [address] [id number] Feb, [facility] [place] [address] [id number] [address] [place] [id number] Feb, [facility] [place] [address] [facility] [id number] [address] [place] [id number] Feb, [facility] [place] [address] [facility] [id number] [address] [place] [id number] Jan, [facility] [place] [address] [id number] [address] [place] [address] Jan, Diabetes 250.00 and Back higinio n 724.5 [facility] [place] [address] [facility] [id number] [address] [place] [id number] Jan, [facility] [place] [address] [facility] [id number] [address] [place] [address] Dec, Diabetes 250.00 ; Benign ess ential hypertension 401.1 and Allergic rhinitis 477.9 [facility] [place] [address] [facility] [id number] [address] [place] [phone] Dec, [facility] [place] [address] [id number] [address] [place] [id number] Dec, [facility] [place] [address] [facility] [id number] [address] [place] [address] Dec, Psychosis 298.9 [facility] [place] [address] [facility] [id number] [address] [place] [address] Dec, Medication side effect 995.2 0 and Generalized anxiety disorder 300.02 [facility] [place] [address] [id number] [address] [place] [id number] Dec, Acquired cognitive dysfuncti on 294.9 [facility] [place] [address] [facility] [id number] [address] [place] [address] Dec, [facility] [place] [address] [facility] [id number] [address] [place] [address] Dec, Unspecified myalgia and myos itis 729.1 and Generalized anxiety disorder 300.02 [facility] [place] [address] [facility] [id number] [address] [place] [id number] Nov, [facility] [place] [address] [facility] [id number] [address] [place] [address] Nov, [facility] [place] [address] [facility] [id number] [address] [place] [address] Nov, [facility] [place] [address] [facility] [id number] [address] [place] [id number] Nov, Upper respiratory infection 465.9 and Chronic airway obstruction, not elsewhere classified 496 [facility] [place] [address] [id number] [address] [place] [id number] Nov, Hyponatremia 276.1 [facility] [place] [address] [facility] [id number] [address] [place] [id number] Oct, [facility] [place] [address] [facility] [id number] [address] [place] [phone] Oct, [facility] [place] [address] [facility] [id number] [address] [place] [id number] Oct, [facility] [place] [address] [facility] [id number] [address] [place] [id number] Oct, [facility] [place] [address] [facility] [id number] [address] [place] [id number] Oct, Hyponatremia 276.1 [facility] [place] [address] [facility] [id number] [address] [place] [phone] Oct, [facility] [place] [address] [facility] [id number] [address] [place] [id number] Oct, [facility] [place] [address] [facility] [id number] [address] [place] [id number] Oct, Generalized anxiety disorder 300.02 [facility] [place] [address] [facility] [id number] [address] [place] [id number] Oct, Generalized anxiety disorder 300.02 and Diabetes 250.00 [facility] [address] [id number] [address] [place] [address], [place] [id number] 14 Aug, 2014 [facility] [address] [id number] [address] [place] [address], [place] [id number] 13 Aug, 2014 [facility] [address] [id number] [address] [place] [address], [place] [id number] Jul, [facility] [address] [id number] [address] [place] [address], [place] [id number] Jul, [facility] [address] [id number] [address] [place] [address], [place] [id number] Jun, [facility] [address] [id number] [address] [place] [address], [place] [id number] Jun, [facility] [address] [id number] [address] [place] [address], [place] [id number] Jun, [facility] [address] [id number] [address] [place] [address], [place] [id number] Jun, [facility] [address] [id number] [address] [place] [address], [place] [id number] Jun, [facility] [address] [id number] [address] [place] [address], [place] [id number] May, [facility] [address] [id number] [address] [place] [address], [place] [id number] May, [facility] [address] [id number] [address] [place] [id number] Apr, [facility] [address] [id number] [address] [place] [address], [place] [id number] Apr, [facility] [address] [id number] [address] [place] [address], [place] [id number] Apr, [facility] [address] [id number] [address] [place] [address], [place] [id number] Apr, [facility] [address] [id number] [address] [place] [address], [place] [id number] Apr, [facility] [address] [id number] [address] [place] [address], [place] [id number] Apr, [facility] [address] [id number] [address] [place] [address], [place] [id number] Apr, [facility] [address] [id number] [address] [place] [address], [place] [id number] Apr, [facility] [address] [id number] [address] [place] [address], [place] [id number] Feb, [facility] [address] [id number] [address] [place] [address], [place] [id number] Feb, [facility] [address] [id number] [address] [place] [address], [place] [id number] Jan, [facility] [address] [id number] [address] [place] [address], [place] [id number] Jan, [facility] [address] [id number] [address] [place] [address], [place] [id number] Dec, [facility] [address] [id number] [address] [place] [address], [place] [id number] Dec, [facility] [address] [id number] [address] [place] [address], [place] [id number] Dec, [facility] [address] [id number] [address] [place] [address], [place] [id number] Nov, [facility] [address] [id number] [address] [place] [address], [place] [id number] Nov, [facility] [address] [id number] [address] [place] [address], [place] [id number] Nov, [facility] [address] [id number] [address] [place] [address], [place] [id number] Oct, [facility] [address] [id number] [address] [place] [address], [place] [id number] Oct, [facility] [address] [id number] [address] [place] [address], [place] [id number] Oct, [facility] [address] [id number] [address] [place] [address], [place] [id number] September, [facility] [address] [id number] [address] [place] [address], [place] [id number] September, [facility] [address] [id number] [address] [place] [address], [place] [id number] September, [facility] [address] [id number] [address] [place] [address], [place] [id number] Aug, [facility] [address] [id number] [address] [place] [address], [place] [id number] Aug, [facility] [address] [id number] [address] [place] [address], [place] [id number] Aug, [facility] [address] [id number] [address] [place] [address], [place] [id number] 16 Aug, 2011 [facility] [address] [id number] [address] [place] [address], [place] [id number] Jul, [facility] [address] [id number] [address] [place] [address], [place] [id number] Jun, [facility] [address] [id number] [address] [place] [address], [place] [id number] 14 Jun, 2011 [facility] [address] [id number] [address] [place] [address], [place] [id number] 13 Jun, 2011 [facility] [address] [id number] [address] [place] [address], [place] [id number] 07 Jun, 2011 [facility] [address] [id number] [address] [place] [address], [place] [id number] 03 Jun, 2011 [facility] [address] [id number] [address] [place] [address], [place] [id number] 13 May, 2011 [facility] [address] [id number] [address] [place] [id number] 10 May, 2011 [facility] [address] [id number] [address] [place] [address], [place] [id number] May, [facility] [address] [id number] [address] [place] [address], [place] [id number] May, [facility] [address] [id number] [address] [place] [address], [place] [id number] Apr, [facility] [address] [id number] [address] [place] [address], [place] [id number] Apr, [facility] [address] [id number] [address] [place] [address], [place] [id number] Apr, [facility] [address] [id number] [address] [place] [address], [place] [id number] Mar, [facility] [address] [id number] [address] [place] [address], [place] [id number] Mar, [facility] [address] [id number] [address] [place] [address], [place] [id number] Mar, [facility] [address] [id number] [address] [place] [address], [place] [id number] Feb, [facility] [address] [id number] [address] [place] [address], [place] [id number] Feb, [facility] [address] [id number] [address] [place] [address], [place] [id number] Feb, [facility] [address] [id number] [address] [place] [address], [place] [id number] Nov, [facility] [address] [id number] [address] [place] [address], [place] [id number] September, [facility] [address] [id number] [address] [place] [address], [place] [id number] 12 Aug, 2010 [facility] [address] [id number] [address] [place] [address], [place] [id number] 14 Jul, 2010 [facility] [address] [id number] [address] [place] [id number] May, [facility] [address] [facility] [id number] [address] [place] [id number] Apr, [facility] [address] [facility] [id number] [address] [place] [id number] Apr, [facility] [address] [facility] [id number] [address] [place] [id number] Apr, [facility] [place] [address] [facility] [id number] [address] [place] [id number] Apr, [facility] [place] [address] [facility] [id number] [address] [place] [id number] Apr, IMMUNIZATIONS No Known Immunizations SOCIAL HISTORY Never Assessed REASON FOR VISIT dm f/u, at last appt hyoscamine was started. Pt reports make her stomach feel we ird in a bad way. , Reports not feeling well since Wednesday. Ears full and ringing , congestion in chest, taking mucinex with no productive cough. CbrumbackRN PLAN OF CARE VITAL SIGNS Height 66 in 2017-08-25 Weight 103.7 lbs 2017-08-25 Temperature 98.3 degrees Fahrenheit 2017-08-25 Heart Rate 86 bpm 2017-08-25 Respiratory Rate 20 2017-08-25 BMI 16.74 kg/m2 2017-08-25 Blood pressure systolic 120 mmHg 2017-08-25 Blood pressure diastolic 68 mmHg 2017-08-25 MEDICATIONS Medication Instructions Dosage Frequency Start Date End Date Duration S tatus Gaviscon 80-14.2 MG Orally 4 times a day 4 tablet 6h Active Dicyclomine HCl 20 mg Orally Four times a day 1 tablet 6h 1 8 Aug, 2017 Oct, 30 day(s) Active PredniSONE 20 mg Orally Once a day 2 tablets 24h Aug, Aug, 05 days Active Linzess 290 MCG Orally Once a day 1 capsule 24h 14 Jul, 2017 30 day(s) Not-Taking Insulin Pen Needle 32G X 6 MM as directed 24h Oct, Active Calcium 600 + D 600-200 MG-UNIT Active Symbicort 160-4.5 MCG/ACT Inhalation Twice a day 2 puffs 12h Aug, Active Levemir FlexTouch 100 UNIT/ML Subcutaneous Once a day 7 units 24h September, 30 days Active Amlodipine Besylate 5 MG Orally Once a day 1 tablet 24h Active Benztropine Mesylate 0.5 MG Orally 3 times a day-Q AM, 4pm and bedtime for restlessness 1 tablet Mar, Active Xopenex 1.25 MG/3ML Inhalation 4 times a day prn 3 ml Dec, 30 days Active [place] 7.5-325 MG Orally 3 times a day 1 tablet as needed 8h Jul, 28 days Active Flonase 50 mcg/act 1 spray in each nostril 12h Apr, Active Ibuprofen 600 MG TAKE ONE TABLET BY MOUTH THREE TIMES DAILY 33 Active Metformin HCl 1000 MG Orally Twice a day 1 tablet with meals 12h Aug, 30 day(s) Active Clonidine HCl 0.1 MG 1 tablet 8h Ac tive Glucosamine 1000 MG Orally Once a day 2 capsules 24h Active Nexium 40 mg 1 capsule 24h Active MiraLax - Orally 3 times a day until you have a BM then Reduce to once daily. 17 grams mixed with 8 oz of fluid 30 days Active Atorvastatin Calcium 10 MG Orally Once a day 1 tablet 24h Active Diclofenac Sodium 1 % Transdermal Four times a day 2-4- grams to affected areas 6h Jun, 30 days Active Lamictal 100 mg Orally 2 times a day for depression 1 tablet September, Active Adderall XR 20 mg Orally Once a day for depression 1 capsule in the morning Aug, 28 days Active Lisinopril 30 MG Orally Once a day 1 tablet 24h Active Ventolin HFA 108 (90 Base) MCG/ACT Inhalation every 4 hrs 2 puffs a s needed 4h Dec, Active Loxapine Succinate 10 mg Orally twice a day for mood 1 capsule Active Singulair 10 mg Orally Once a day 1 tablet in the evening 24h Oct, 30 day(s) Active [id number] 50-325-40 MG Orally 3 times a day 1 cap yg as needed 8h Jun, Active Mucinex 600 MG Orally every 12 hrs 1 tablet as needed 12h Active Breo Ellipta 200-25 MCG/INH INHALE ONE PUFF BY MOUTH ONCE DAILY 30 Active Baclofen 20 MG Orally Three times a day 1 tablet with food or milk 8h 30 Active Trazodone HCl 100 mg Orally for sleep 1 tablet at bedtime Jan Active Amoxicillin 500 MG Orally every 8 hrs 1 capsule 8h Aug, Aug, 10 day(s) Active Incruse Ellipta 62.5 MCG/INH 1 puff 24h Active Ondansetron 4 MG Orally every 8 hrs PRN 1 tablet on the t ongue and allow to dissolve Apr, Active Lorazepam 2 MG Orally in the AM and noon and 4pm 1 tablet Jul, 30 days Active Nebulizer 1 as directed Jul, Act minoo Metoprolol Tartrate 50 mg Orally Twice a day TAKE ONE TABLE T BY MOUTH TWICE DAILY WITH FOOD 12h Active Gabapentin 800 MG Orally Three times a day 1 tablet 8h Jul, Active BusPIRone HCl 15 mg Orally 3 times a day for anxiety 1 tablet Jan, Active Cetirizine HCl 10 mg Orally Once a day 1 tablet 24h Apr, 30 day(s) Active Multivitamin Adult - Act minoo Aspir-81 81 MG Orally Once a day 1 tablet 24h Active RESULTS No Results PROCEDURES Procedure Date Ordered Result Body Site [facility] VISIT ESTABLISHED PATIENT August 25, 2017 INSTRUCTIONS MEDICATIONS ADMINISTERED No Known Medications [...]
--- OUTSIDE RECORDS SUMMARY | 2019-07-17 11:10 | XMS REPORT ---
Author Author Sujey WILLS Organization [facility] Address [address] [place] [address] Care Team Providers Care Telegraph Office Manager Name Role Phone JOHANNGISELEYVON Unavailable PROBLEMS Type Condition ICD9-CM Code MAK64-[id number] Code Onset Dates Condition S tatus SNOMED Code Problem Back pain M54.9 Active 639834387 Problem Diabetes E11.9 Active 14614752 Problem GERD (gastroesophageal reflux disease) K21.9 Active 890548911 Problem Hypertension I10 Active 4736583 3 Problem Anxiety disorder, unspecified F41.9 Active 603727681 Problem Other bipolar disorder F31.89 Active 29387724 Problem Fibromyalgia M79.7 Active 5408427 7 Problem Panic disorder with agoraphobia F40.01 Active 07328414 Problem Panlobular emphysema J43.1 Active 3591505 Problem Chronic obstructive pulmonary disease, unspecified J44.9 Active 01297625 Problem Akathisia G25.71 Active 980582011 Problem Lumbago with sciatica, left side M54.42 Active 046454662 Problem Migraine without aura and without status migrain osus, not intractable G43.009 Active 973091439 Problem Fibrocystic disease of right breast N60.11 Active 38518971 Problem Fibrocystic disease of left breast N60.12 Active 08452160 Problem Slow transit constipation K59.01 Acti ve 97218313 Problem Essential tremor G25.0 Active 609 477263 Problem Bipolar 1 disorder, depressed, moderate F31.32 Active 23254468 Problem Other chronic pain G89.29 Active 8 5467840 Problem Lumbago with sciatica, right side M54.41 Active 056720467 Problem Irritable bowel syndrome with constipation K58.1 Active 000748199 Problem Arthritis M19.90 Active 5057916 Problem Schizoaffective disorder, bipolar type F25.0 Active 07719740 Problem Irritable bowel syndrome with both constipation and diarrh ea K58.2 Active 28872516 Problem Attention deficit hyperactiv ity disorder (ADHD), predominantly inattentive type F90.0 Active 84796127 Problem Bipolar I disorder with depression F31.9 Active 74649662 Problem Chronic post-traumatic stress disorder (PTSD) F43. 12 Active 303661940 Problem Bipolar affective disorder, remission status unspecified F31.9 Active 59257523 Problem Mild persistent asthma without complication J45.30 Active 469132921 Problem Moderate persistent asthma without complication J4 5.40 Active 662907694 Problem Acute non-recurrent maxillary sinusitis J01.00 Active 38845540 Problem Bipolar 1 disorder, depressed, partial remission F 31.75 Active 40585803 ALLERGIES Substance Reaction Event Type Date Status Penicillin V Potassium Unknown Drug Allergy Aug, Activ e Effexor anaphylaxis Drug Allergy Aug, Active Darvocet-N 50 Unknown Drug Allergy Aug, Active Cefdinir Swelling Drug Allergy Aug, Active Benadryl vomiting/swelling Drug Allergy Aug, Active ENCOUNTERS Encounter Location Date Diagnosis [place] [address] [place] [id number] [address] [place] [phone] Mar, [place] [address] [facility] [id number] [address] [place] [address] Dec, [place] [address] [place] [id number] [address] [place] [address] Nov, Bipolar 1 disorder, depresse d, partial remission F31.75 and Panic disorder with agoraphobia F40.01 [place] [address] [facility] [id number] [address] [place] [address] Nov, Panlobular emphysema J43.1 [facility] [address] [facility] [id number] [address] [place] [id number] Nov, Cerebrovascular accident (CV A) due to occlusion of right cerebellar artery I63.541 and Acute non-recurrent maxillary sinusitis J01.00 [facility] [address] [facility] [id number] [address] [place] [phone] Nov, Panlobular emphysema J43.1 [facility] [address] [facility] [id number] [address] [place] [address] Nov, [facility] [address] [id number] [address] [place] [address] Nov, [facility] [address] [id number] [address] [place] [address] Nov, [facility] [address] [id number] [address] [place] [address] Nov, [facility] [address] [id number] [address] [place] [phone] Nov, [facility] [address] [id number] [address] [place] [phone] Nov, [facility] [address] [facility] [id number] [address] [place] [phone] Nov, [facility] [address] [facility] [id number] [address] [place] [address] Nov, Mild persistent asthma witho ut complication J45.30 and Irritable bowel syndrome with both constipation and diarrhea K58.2 [facility] [address] [facility] [id number] [address] [place] [phone] Nov, [facility] [address] [facility] [id number] [address] [place] [phone] Oct, [facility] [address] [facility] [id number] [address] [place] [phone] Oct, [facility] [address] [facility] [id number] [address] [place] [address] Oct, Type 2 diabetes mellitus wit h diabetic neuropathy, unspecified 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 ; Diabetes E11.9 ; Slow transit constipation K59.01 ; Edema of both legs R60.0 and Dysfunction of right eustachian tube H69.81 [facility] [address] [facility] [id number] [address] [place] [phone] Oct, Frequent headaches R51 [facility] [address] [facility] [id number] [address] [place] [phone] Oct, [facility] [address] [id number] [address] [place] [phone] Oct, [facility] [address] [id number] [address] [place] [phone] Oct, [facility] [address] [id number] [address] [place] [address] Oct, [facility] [address] [id number] [address] [place] [phone] Oct, [facility] [address] [id number] [address] [place] [address] Oct, [facility] [address] [facility] [id number] [address] [place] [phone] Oct, [facility] [address] [id number] [address] [place] [address] Oct, [facility] [address] [facility] [id number] [address] [place] [address] September, Frequent headaches R51 [facility] [address] [facility] [id number] [address] [place] [address] September, Bilateral otitis media with effusion H65.93 ; Dizziness R42 and Essential tremor G25.0 [facility] [address] [facility] [id number] [address] [place] [address] September, Chronic obstructive pulmonar y disease, unspecified COPD type J44.9 [facility] [address] [facility] [id number] [address] [place] [address] September, Chronic obstructive pulmonar y disease, unspecified COPD type J44.9 [facility] [address] [facility] [id number] [address] [place] [address] September, Migraine without aura and wi thout status migrainosus, not intractable G43.009 [facility] [address] [facility] [id number] [address] [place] [phone] September, [facility] [address] [id number] [address] [place] [address] September, [facility] [address] [id number] [address] [place] [address] September, [facility] [address] [facility] [id number] [address] [place] [address] September, Frequent headaches R51 [facility] [address] [id number] [address] [place] [address] Aug, [facility] [address] [facility] [id number] [address] [place] [address] Aug, Breast mass, right N63.10 [facility] [address] [facility] [id number] [address] [place] [address] Aug, Breast lump N63.0 [facility] [address] [facility] [id number] [address] [place] [address] Aug, [facility] [address] [facility] [id number] [address] [place] [address] Aug, Bipolar affective disorder, remission status unspecified F31.9 and Diabetes E11.9 [facility] [address] [facility] [id number] [address] [place] [address] Aug, Diabetes E11.9 ; Schizoaffec tive disorder, bipolar type F25.0 ; Pharyngitis due to other organism J02.8 ; Panlobular emphysema J43.1 and Irritable bowel syndrome with both constipation and diarrhea K58.2 [facility] [address] [facility] [id number] [address] [place] [address] Aug, Abnormal mammogram R92.8 [facility] [address] [facility] [id number] [address] [place] [address] Aug, [facility] [address] [facility] [id number] [address] [place] [address] Aug, Bipolar 1 disorder, depresse d, moderate F31.32 ; Panic disorder with agoraphobia F40.01 and Chronic post-traumatic stress disorder (PTSD) F43.12 [facility] [address] [facility] [id number] [address] [place] [address] Aug, [facility] [address] [facility] [id number] [address] [place] [phone] Aug, [facility] [address] [facility] [id number] [address] [place] [address] Aug, [facility] [address] [id number] [address] [place] [phone] Jul, [facility] [address] [facility] [id number] [address] [place] [address] Jul, Mild persistent asthma witho ut complication J45.30 [facility] [address] [facility] [id number] [address] [place] [address] Jul, Mild persistent asthma witho ut complication J45.30 [facility] [address] [facility] [id number] [address] [place] [address] Jul, Bipolar affective disorder, remission status unspecified F31.9 ; Diabetes E11.9 and Irritable bowel syndrome with constipation K58.1 [facility] [address] [facility] [id number] [address] [place] [address] Jul, [facility] [address] [facility] [id number] [address] [place] [id number] Jul, [facility] [address] [facility] [id number] [address] [place] [address] Jul, Frequent headaches R51 [facility] [address] [facility] [id number] [address] [place] [address] Jul, [facility] [address] [facility] [id number] [address] [place] [phone] Jul, [facility] [address] [facility] [id number] [address] [place] [address] Jul, [place] [address] [place] [id number] [address] [place] [address] 05 Jul, 2017 Frequent headaches R51 ; Fib rocystic disease of left breast N60.12 ; Fibrocystic disease of right breast N60.11 and Diabetes E11.9 [place] [address] [place] [id number] [address] [place] [address] 02 Jul, 2017 [place] [address] [address] Jul, [place] [address] [address] 21 Jun, 2017 Exudative tonsillitis J03.90 [place] [address] [address] 20 Jun, 2017 [place] [address] [address] 19 Jun, 2017 [place] [address] [address] 15 Jun, 2017 Mild persistent asthma witho ut complication J45.30 ; Chronic obstructive pulmonary disease, unspecified COPD type J44.9 and Exudative tonsillitis J03.90 [place] [address] [place] [id number] [address] [place] [address] 13 Jun, 2017 Encounter for immunization Z 23 [place] [address] [address] Jun, [place] [address] [address] 12 Jun, 2017 [place] [address] [address] 09 Jun, 2017 [facility] [address] [place] [id number] [address] [place] [address] 06 Jun, 2017 Tonsillitis J03.90 [place] [address] [address] 05 Jun, 2017 [facility] [address] [facility] [id number] [address] [place] [id number] 03 Jun, 2017 Acute non-recurrent maxillar y sinusitis J01.00 [facility] [address] [facility] [id number] [address] [place] [address] 02 Jun, 2017 [facility] [address] [facility] [id number] [address] [place] [address] May, [facility] [address] [facility] [id number] [address] [place] [address] May, [facility] [address] [facility] [id number] [address] [place] [phone] May, GERD (gastroesophageal reflu x disease) K21.9 [facility] [address] [facility] [id number] [address] [place] [address] May, Migraine without aura and wi thout status migrainosus, not intractable G43.009 [facility] [address] [facility] [id number] [address] [place] [address] May, [facility] [address] [facility] [id number] [address] [place] [address] May, [facility] [address] [facility] [id number] [address] [place] [address] May, Panlobular emphysema J43.1 a nd Acute non-recurrent maxillary sinusitis J01.00 [facility] [address] [facility] [id number] [address] [place] [address] May, Bipolar 1 disorder, depresse d, moderate F31.32 ; Panic disorder with agoraphobia F40.01 and Akathisia G25.71 [facility] [address] [facility] [id number] [address] [place] [address] Apr, [facility] [address] [place] [id number] [place] [address] Apr, [facility] [address] [id number] [address] [place] [address] 13 Apr, 2017 Acute non-recurrent maxillar y sinusitis J01.00 [facility] [address] [id number] [address] [place] [address] 07 Apr, 2017 Panlobular emphysema J43.1 [facility] [address] [id number] [address] [place] [address] 04 Apr, 2017 [facility] [address] [id number] [address] [place] [address] 04 Apr, 2017 Exudative tonsillitis J03.90 and Sore throat J02.9 [facility] [address] [id number] [address] [place] [address] 17 Mar, 2017 [facility] [address] [id number] [address] [place] [address] 15 Mar, 2017 Acute non-recurrent maxillar y sinusitis J01.00 [facility] [address] [id number] [address] [place] [address] 13 Mar, 2017 [facility] [address] [id number] [address] [place] [address] 09 Mar, 2017 Panlobular emphysema J43.1 a nd Diabetes E11.9 [facility] [address] [id number] [address] [place] [address] Mar, [facility] [address] [id number] [address] [place] [phone] Feb, Wheezing R06.2 and Acute rec urrent pansinusitis J01.41 [facility] [address] [id number] [address] [place] [address] Feb, [facility] [address] [facility] [id number] [address] [place] [address] Feb, Acute non-recurrent maxillar y sinusitis J01.00 [facility] [address] [id number] [address] [place] [address] 16 Feb, 2017 Chronic obstructive pulmonar y disease, unspecified J44.9 [facility] [address] [facility] [id number] [address] [place] [address] 02 Feb, 2017 Hypoxemia R09.02 and Chronic obstructive pulmonary disease, unspecified J44.9 [facility] [address] [facility] [id number] [address] [place] [id number] 28 Jan, 2017 Bipolar 1 disorder, depresse d, moderate F31.32 ; Panic disorder with agoraphobia F40.01 ; Chronic post-traumatic stress disorder (PTSD) F43.12 ; Diabetes E11.9 and Moderate persistent asthma without complication J45.40 [place] [address] [id number] [address] [place] [address] 22 Jan, 2017 [place] [address] [id number] [address] [place] [address] Jan, Acute non-recurrent maxillar y sinusitis J01.00 [facility] [address] [id number] [address] [place] [phone] 18 Jan, 2017 [facility] [address] [id number] [address] [place] [address] 18 Jan, 2017 [facility] [address] [facility] [id number] [address] [place] [address] Jan, Moderate persistent asthma w [facility] complication J45.40 and Hypoxemia R09.02 [facility] [address] [id number] [address] [place] [address] Jan, Moderate persistent asthma w ithout complication J45.40 and Hypoxemia R09.02 [facility] [address] [id number] [address] [place] [address] Jan, [facility] [address] [facility] [id number] [address] [place] [address] Dec, Acute non-recurrent maxillar y sinusitis J01.00 [facility] [address] [id number] [address] [place] [address] Dec, Chronic obstructive pulmonar y disease, unspecified J44.9 [facility] [address] [facility] [id number] [address] [place] [address] Dec, [facility] [address] [facility] [id number] [address] [place] [address] Dec, Mild persistent asthma witho ut complication J45.30 and Other chronic pain G89.29 [facility] [address] [facility] [id number] [address] [place] [address] Nov, [facility] [address] [facility] [id number] [address] [place] [address] Nov, Acute non-recurrent maxillar y sinusitis J01.00 [facility] [address] [facility] [id number] [address] [place] [address] Nov, [facility] [address] [place] [id number] [address] [place] [address] Nov, [facility] [address] [facility] [id number] [address] [place] [address] Oct, [facility] [address] [facility] [id number] [address] [place] [address] Oct, Bipolar 1 disorder, depresse d, partial remission F31.75 ; Panic disorder with agoraphobia F40.01 and Chronic post-traumatic stress disorder (PTSD) F43.12 [facility] [address] [facility] [id number] [address] [place] [address] Oct, Acute non-recurrent maxillar y sinusitis J01.00 [facility] [address] [facility] [id number] [address] [place] [address] Oct, [facility] [address] [facility] [id number] [address] [place] [address] Oct, Diabetes E11.9 [facility] [address] [facility] [id number] [address] [place] [address] September, Diabetes E11.9 [facility] [address] [facility] [id number] [address] [place] [address] September, Diabetes E11.9 and Sinus tac hycardia R00.0 [facility] [address] [id number] [address] [place] [address] September, [facility] [address] [facility] [id number] [address] [place] [phone] September, [facility] [address] [facility] [id number] [address] [place] [address] Aug, Diabetes E11.9 and Lumbago w ith sciatica, right side M54.41 [facility] [address] [facility] [id number] [address] [place] [address] Aug, [facility] [address] [facility] [id number] [address] [place] [phone] Jul, Bipolar 1 disorder, depresse d, moderate F31.32 ; Panic disorder with agoraphobia F40.01 and Chronic post-traumatic stress disorder (PTSD) F43.12 [facility] [address] [facility] [id number] [address] [place] [id number] Jul, Sore throat J02.9 [facility] [address] [facility] [id number] [address] [place] [id number] Jul, [facility] [address] [facility] [id number] [address] [place] [id number] Jul, [facility] [address] [id number] [address] [place] [id number] Jul, [facility] [address] [place] [id number] [address] [place] [id number] Jul, [facility] [address] [facility] [id number] [address] [place] [id number] Jul, Sore throat J02.9 and Pharyn gitis, unspecified etiology J02.9 [facility] [address] [id number] [address] [place] [id number] Jun, [facility] [address] [id number] [address] [place] [id number] Jun, Diabetes E11.9 [facility] [address] [id number] [address] [place] [id number] Jun, [facility] [address] [id number] [address] [place] [id number] Jun, [facility] [address] [id number] [address] [place] [id number] Jun, [facility] [address] [id number] [address] [place] [id number] Jun, [facility] [address] [id number] [address] [place] [id number] Jun, [facility] [address] [id number] [address] [place] [id number] Jun, [facility] [address] [id number] [address] [place] [id number] Jun, [facility] [address] [id number] [address] [place] [id number] Jun, [facility] [address] [id number] [address] [place] [id number] May, Diabetes E11.9 ; Other chron ic pain G89.29 ; Acute recurrent maxillary sinusitis J01.01 ; Bipolar I disorder with depression F31.9 and Anxiety disorder, unspecified F41.9 [facility] [address] [id number] [address] [place] [id number] May, [facility] [address] [id number] [address] [place] [address] May, Diabetes E11.9 ; Bipolar I d isorder with depression F31.9 ; Anxiety disorder, unspecified F41.9 ; Other chronic pain G89.29 and Acute recurrent maxillary sinusitis J01.01 [facility] [address] [id number] [address] [place] [address] May, [place] [address] [id number] [address] [place] [address] May, Attention deficit hyperactiv ity disorder (ADHD), predominantly inattentive type F90.0 [place] [address] [facility] [id number] [address] [place] [address] May, [place] [address] [id number] [address] [place] [address] Apr, Attention deficit hyperactiv ity disorder (ADHD), predominantly inattentive type F90.0 and Non-seasonal allergic rhinitis due to other allergic trigger J30.89 [place] [address] [facility] [id number] [address] [place] [address] Apr, Bipolar 1 disorder, depresse d, moderate F31.32 ; Panic disorder with agoraphobia F40.01 and Chronic post-traumatic stress disorder (PTSD) F43.12 [place] [address] [facility] [id number] [address] [place] [id number] 06 Apr, 2016 Dental examination Z01.20 [place] [address] [facility] [id number] [address] [place] [address] Mar, [place] [address] [facility] [id number] [address] [place] [address] Mar, [place] [address] [facility] [id number] [address] [place] [id number] 17 Mar, 2016 Bipolar I disorder with depr ession F31.9 and Anxiety disorder, unspecified F41.9 [place] [address] [facility] [id number] [address] [place] [id number] 08 Mar, 2016 Panic disorder with agorapho syd F40.01 ; Bipolar 1 disorder, depressed, moderate F31.32 and Chronic post-traumatic stress disorder (PTSD) F43.12 [place] [address] [facility] [id number] [address] [place] [address] Mar, [facility] [address] [facility] [id number] [address] [place] [address] Mar, Dental caries K02.9 [facility] [address] [facility] [id number] [address] [place] [address] 24 Feb, 2016 Lumbago with sciatica, left side M54.42 ; Lumbago with sciatica, right side M54.41 and Other chronic pain G89.29 [place] [address] [facility] [id number] [address] [place] [address] 17 Feb, 2016 [place] [address] [place] [id number] [place] [address] 14 Feb, 2016 [place] [address] [place] [id number] [place] [address] 13 Feb, 2016 Bipolar I disorder with depr ession F31.9 ; PTSD (post-traumatic stress disorder) F43.10 and Mood disorder F39 [place] [id number] [place] [id number] [address] [place] [address] Feb, [place] [address] [place] [id number] [place] [address] 11 Feb, 2016 Dental examination Z01.20 [facility] [address] [place] [id number] [place] [address] 07 Feb, 2016 [facility] [address] [facility] [id number] [address] [place] [address] 03 Feb, 2016 Acute bronchitis, unspecifie d organism J20.9 [facility] [address] [facility] [id number] [address] [place] [address] 26 Jan, 2016 Mood disorder F39 ; Migraine without aura and without status migrainosus, not intractable G43.009 ; Irritable bowel syndrome, unspecified type K58.9 ; Diabetes E11.9 and Encounter for immunization Z23 [facility] [address] [place] [id number] [address] [place] [address] Jan, [facility] [address] [id number] [address] [place] [address] Jan, [facility] [address] [id number] [address] [place] [address] Jan, [facility] [address] [facility] [id number] [address] [place] [address] Jan, [facility] [address] [facility] [id number] [address] [place] [address] Jan, [facility] [address] [facility] [id number] [address] [place] [address] Dec, Bipolar I disorder with depr ession F31.9 ; PTSD (post-traumatic stress disorder) F43.10 and Panic disorder with agoraphobia F40.01 [facility] [address] [facility] [id number] [address] [place] [address] Dec, Chronic obstructive pulmonar y disease, unspecified COPD type J44.9 ; Tremor R25.1 and Anxiety F41.9 [facility] [address] [facility] [id number] [address] [place] [address] Dec, [facility] [address] [facility] [id number] [address] [place] [address] Nov, Tremors of nervous system R2 5.1 and Cramping of feet R25.2 [facility] [address] [facility] [id number] [address] [place] [address] Nov, [facility] [address] [id number] [address] [place] [phone] Nov, [facility] [address] [facility] [id number] [address] [place] [address] Oct, Chronic obstructive pulmonar y disease, unspecified J44.9 [facility] [address] [facility] [id number] [address] [place] [address] Oct, [facility] [address] [place] [id number] [address] [place] [address] Oct, Tremor R25.1 [facility] [address] [place] [id number] [address] [place] [address] Oct, Bipolar I disorder with depr ession F31.9 ; Diabetes E11.9 ; PTSD (post-traumatic stress disorder) F43.10 and Panic disorder with agoraphobia F40.01 [place] [address] [place] [id number] [address] [place] [address] Oct, Mood disorder F39 [place] [address] [place] [id number] [address] [place] [address] September, [place] [address] [address] September, Diabetes E11.9 ; Bipolar I d isorder with depression F31.9 ; PTSD (post-traumatic stress disorder) F43.10 and Panic disorder with agoraphobia F40.01 [place] [id number] [place] [address] September, Mood disorder F39 ; Schizoaf fective disorder, unspecified type F25.9 ; Arthritis M19.90 ; Tremor R25.1 ; Acute non-recurrent frontal sinusitis J01.10 and Blood in stool K92.1 [place] [id number] [place] [address] September, [place] [address] [place] [id number] [address] [place] [address] September, Chronic obstructive pulmonar y disease, unspecified J44.9 [place] [address] [place] [id number] [address] [place] [address] September, Diabetes E11.9 [place] [address] [place] [id number] [address] [place] [address] Aug, Other bipolar disorder F31.8 9 and Anxiety disorder, unspecified F41.9 [place] [address] [place] [address] Aug, [facility] [address] [id number] [address] [place] [address] Aug, Diabetes E11.9 [facility] [address] [id number] [address] [place] [address] 18 Aug, 2015 [facility] [address] [facility] [id number] [address] [place] [address] 14 Aug, 2015 Diabetes E11.9 ; Fatigue R53 .83 and Dizziness R42 [facility] [address] [id number] [address] [place] [address] 13 Aug, 2015 Other bipolar disorder F31.8 9 [facility] [address] [facility] [id number] [address] [place] [id number] 07 Aug, 2015 Generalized anxiety disorder F41.1 [facility] [address] [facility] [id number] [address] [place] [address] 07 Aug, 2015 Other bipolar disorder F31.8 9 and Anxiety disorder, unspecified F41.9 [facility] [address] [id number] [address] [place] [address] Aug, [facility] [address] [facility] [id number] [address] [place] [address] Jul, [facility] [address] [facility] [id number] [address] [place] [address] Jul, [facility] [address] [id number] [address] [place] [address] Jul, Bronchitis J40 [facility] [address] [id number] [address] [place] [address] Jul, Anxiety disorder F41.9 [facility] [address] [facility] [id number] [address] [place] [address] Jul, Other bipolar disorder F31.8 9 and Anxiety disorder, unspecified F41.9 [facility] [address] [facility] [id number] [address] [place] [address] 18 Jul, 2015 Other bipolar disorder F31.8 9 and Fibromyalgia M79.7 [facility] [address] [address] Jul, [facility] [address] [place] [id number] [address] [place] [address] Jul, [facility] [address] [address] Jul, [facility] [address] [address] Jul, Other bipolar disorder F31.8 9 and Anxiety disorder, unspecified F41.9 [facility] [address] [address] Jun, GERD (gastroesophageal reflu x disease) K21.9 [facility] [address] [address] Jun, [facility] [address] [address] May, [facility] [address] [address] May, Diabetes E11.9 ; Back pain M 54.9 ; GERD (gastroesophageal reflux disease) K21.9 ; Hypertension I10 and Peripheral neuropathy G62.9 [facility] [address] [place] [id number] [address] [place] [address] Mar, [facility] [address] [address] Mar, [facility] [address] [address] Mar, Acute sinusitis J01.90 and O titis media, left H66.92 [facility] [address] [place] [id number] [address] [place] [address] Feb, [facility] [address] [facility] [id number] [address] [place] [address] Feb, [facility] [address] [facility] [id number] [address] [place] [address] Feb, [facility] [address] [facility] [id number] [address] [place] [address] Feb, [facility] [address] [facility] [id number] [address] [place] [address] Jan, [facility] [address] [facility] [id number] [address] [place] [address] Jan, Diabetes 250.00 and Back higinio n 724.5 [facility] [address] [facility] [id number] [address] [place] [address] Jan, [facility] [address] [place] [id number] [address] [place] [address] Dec, Diabetes 250.00 ; Benign ess ential hypertension 401.1 and Allergic rhinitis 477.9 [facility] [address] [facility] [id number] [address] [place] [address] Dec, [facility] [address] [facility] [id number] [address] [place] [address] Dec, [facility] [address] [place] [id number] [address] [place] [address] Dec, Psychosis 298.9 [facility] [address] [place] [id number] [address] [place] [address] Dec, Medication side effect 995.2 0 and Generalized anxiety disorder 300.02 [facility] [address] [facility] [id number] [address] [place] [address] Dec, Acquired cognitive dysfuncti on 294.9 [facility] [address] [facility] [id number] [address] [place] [address] Dec, [facility] [address] [place] [id number] [address] [place] [address] Dec, Unspecified myalgia and myos itis 729.1 and Generalized anxiety disorder 300.02 [facility] [address] [facility] [id number] [address] [place] [address] Nov, [facility] [address] [facility] [id number] [address] [place] [address] Nov, [facility] [address] [facility] [id number] [address] [place] [address] Nov, [facility] [address] [facility] [id number] [address] [place] [address] Nov, Upper respiratory infection 465.9 and Chronic airway obstruction, not elsewhere classified 496 [facility] [address] [facility] [id number] [address] [place] [address] Nov, Hyponatremia 276.1 [facility] [address] [facility] [id number] [address] [place] [address] Oct, [facility] [address] [facility] [id number] [address] [place] [address] Oct, [facility] [address] [facility] [id number] [address] [place] [address] Oct, [facility] [address] [facility] [id number] [address] [place] [address] Oct, [facility] [address] [facility] [id number] [address] [place] [address] Oct, Hyponatremia 276.1 [facility] [address] [facility] [id number] [address] [place] [address] Oct, [facility] [address] [facility] [id number] [address] [place] [address] Oct, [facility] [address] [facility] [id number] [address] [place] [address] Oct, Generalized anxiety disorder 300.02 [facility] [address] [facility] [id number] [address] [place] [address] Oct, Generalized anxiety disorder 300.02 and Diabetes 250.00 [facility] [address] [id number] [address] [place] [address], [place] [address] 14 Aug, 2014 [facility] [address] [id number] [address] [place] [address] Aug, [facility] [address] [id number] [address] [place] [address], [place] [address] Jul, [facility] [address] [id number] [address] [place] [address] Jul, [facility] [address] [id number] [address] [place] [address], [place] [address] Jun, [facility] [address] [id number] [address] [place] [address], [place] [address] Jun, [facility] [address] [id number] [address] [place] [address], [place] [address] Jun, [facility] [address] [id number] [address] [place] [address], [place] [address] Jun, [facility] [address] [id number] [address] [place] [address], [place] [address] Jun, [facility] [address] [id number] [address] [place] [address], [place] [address] May, [facility] [address] [id number] [address] [place] [address], [place] [address] May, [facility] [address] [id number] [address] [place] [address] Apr, [facility] [address] [id number] [address] [place] [address] Apr, [facility] [address] [id number] [address] [place] [address] Apr, [facility] [address] [id number] [address] [place] [address] Apr, [facility] [address] [id number] [address] [place] [address], [place] [address] Apr, [facility] [address] [id number] [address] [place] [address], [place] [address] Apr, [facility] [address] [id number] [address] [place] [address], [place] [address] Apr, [facility] [address] [id number] [address] [place] [address], [place] [address] Apr, [facility] [address] [id number] [address] [place] [address], [place] [address] Feb, [facility] [address] [id number] [address] [place] [address], [place] [address] Feb, [facility] [address] [id number] [address] [place] [address], [place] [address] Jan, [facility] [address] [id number] [address] [place] [address], [place] [address] Jan, [facility] [address] [id number] [address] [place] [address], [place] [address] Dec, [facility] [address] [id number] [address] [place] [address], [place] [address] Dec, [facility] [address] [id number] [address] [place] [address], [place] [address] Dec, [facility] [address] [id number] [address] [place] [address], [place] [address] Nov, [facility] [address] [id number] [address] [place] [address], [place] [address] Nov, [facility] [address] [id number] [address] [place] [address], [place] [address] Nov, [facility] [address] [id number] [address] [place] [address], [place] [address] Oct, [facility] [address] [id number] [address] [place] [address], [place] [address] Oct, [facility] [address] [id number] [address] [place] [address], [place] [address] Oct, [facility] [address] [id number] [address] [place] [address], [place] [address] September, [facility] [address] [id number] [address] [place] [address], [place] [address] September, [facility] [address] [id number] [address] [place] [address], [place] [address] September, [facility] [address] [id number] [address] [place] [address], [place] [address] Aug, [facility] [address] [id number] [address] [place] [address], [place] [address] Aug, [facility] [address] [id number] [address] [place] [address], [place] [address] Aug, [facility] [address] [id number] [address] [place] [address], [place] [address] 16 Aug, 2011 [facility] [address] [id number] [address] [place] [address], [place] [address] Jul, [facility] [address] [id number] [address] [place] [address], [place] [address] Jun, [facility] [address] [id number] [address] [place] [address], [place] [address] 14 Jun, 2011 [facility] [address] [id number] [address] [place] [address], [place] [address] 13 Jun, 2011 [facility] [address] [id number] [address] [place] [address], [place] [address] 07 Jun, 2011 [facility] [address] [id number] [address] [place] [address], [place] [address] 03 Jun, 2011 [facility] [address] [id number] [address] [place] [address], [place] [address] May, [facility] [address] [id number] [address] [place] [address], [place] [address] May, [facility] [address] [id number] [address] [place] [address], [place] [address] May, [facility] [address] [id number] [address] [place] [address], [place] [address] May, [facility] [address] [id number] [address] [place] [address], [place] [address] Apr, [facility] [address] [id number] [address] [place] [address], [place] [address] Apr, [facility] [address] [id number] [address] [place] [address], [place] [address] Apr, [facility] [address] [id number] [address] [place] [address], [place] [address] Mar, [facility] [address] [id number] [address] [place] [address], [place] [address] Mar, [facility] [address] [id number] [address] [place] [address], [place] [address] Mar, [facility] [address] [id number] [address] [place] [address], [place] [address] Feb, [facility] [address] [id number] [address] [place] [address], [place] [address] Feb, [facility] [address] [id number] [address] [place] [address], [place] [address] 13 Feb, 2011 [facility] [address] [id number] [address] [place] [address], [place] [address] Nov, [facility] [address] [id number] [address] [place] [address], [place] [address] 16 Sep, 2010 [facility] [address] [id number] [address] [place] [address], [place] [address] 12 Aug, 2010 [facility] [address] [id number] [address] [place] [address], [place] [address] Jul, [facility] [address] [facility] [id number] [address] [place] [id number] May, [facility] [address] [facility] [id number] [address] [place] [id number] Apr, [facility] [address] [facility] [id number] [address] [place] [id number] Apr, [facility] [address] [facility] [id number] [address] [place] [id number] Apr, [facility] [address] [facility] [id number] [address] [place] [phone] Apr, [facility] [address] [facility] [id number] [address] [place] [phone] Apr, IMMUNIZATIONS No Known Immunizations SOCIAL HISTORY Never Assessed REASON FOR VISIT f/u PLAN OF CARE Activity Details Follow Up 3 Months Reason: VITAL SIGNS Height 66 in 2017-08-19 Weight 103.8 lbs 2017-08-19 Heart Rate 72 bpm 2017-08-19 Respiratory Rate 20 2017-08-19 BMI 16.75 kg/m2 2017-08-19 Blood pressure systolic 142 mmHg 2017-08-19 Blood pressure diastolic 76 mmHg 2017-08-19 MEDICATIONS Medication Instructions Dosage Frequency Start Date End Date Duration S tatus Multivitamin Adult - Act minoo Gabapentin 800 MG Orally Three times a day 1 tablet 8h 18 Jul, 2015 Active Amlodipine Besylate 5 MG Orally Once a day 1 tablet 24h Active Gaviscon 80-14.2 MG Orally 4 times a day 4 tablet 6h Active Benztropine Mesylate 0.5 MG Orally 3 times a day-Q AM, 4pm and bedtime for restlessness 1 tablet Mar, Active Trazodone HCl 100 mg Orally for sleep 1 tablet at bedtime Jan Active Atorvastatin Calcium 10 MG Orally Once a day 1 tablet 24h Active Metformin HCl 1000 MG Orally Twice a day 1 tablet with meals 12h Aug, 30 day(s) Active Cetirizine HCl 10 mg Orally Once a day 1 tablet 24h Apr, 30 day(s) Active Incruse Ellipta 62.5 MCG/INH 1 puff 24h Active Lisinopril 30 MG Orally Once a day 1 tablet 24h Active Ventolin HFA 108 (90 Base) MCG/ACT Inhalation every 4 hrs 2 puffs a s needed 4h Dec, Active Mucinex 600 MG Orally every 12 hrs 1 tablet as needed 12h Active Insulin Pen Needle 32G X 6 MM as directed 24h Oct, Active Lamictal 100 mg Orally 2 times a day for depression 1 tablet September, Active Bunola 7.5-325 MG Orally 3 times a day 1 tablet as needed 8h Jul, 28 days Active Aeilukemqg-NNIF-Oqkpdjrf 50-325-40 MG Orally 3 times a day 1 cap yg as needed 8h Jun, Active Ibuprofen 600 MG TAKE ONE TABLET BY MOUTH THREE TIMES DAILY 33 Active Flonase 50 mcg/act 1 spray in each nostril 12h Apr, Active Clonidine HCl 0.1 MG TAKE ONE TABLET BY MOUTH THREE TIMES DAILY Active Aspir-81 81 MG Orally Once a day 1 tablet 24h Active Linzess 290 MCG Orally Once a day 1 capsule 24h Jul, 30 day(s) Not-Taking Xopenex 1.25 MG/3ML Inhalation 4 times a day prn 3 ml Dec, 30 days Active Nebulizer 1 as directed Jul, Act minoo Levemir FlexTouch 100 UNIT/ML Subcutaneous Once a day 7 units 24h September, 30 days Active Lorazepam 2 MG Orally in the AM and noon and 4pm 1 tablet Jul, 30 days Active Singulair 10 mg Orally Once a day 1 tablet in the evening 24h Oct, 30 day(s) Active Hyoscyamine Sulfate 0.125 MG Orally Four times a day 1 tablet as ne eded 6h Jul, Active Nexium 40 mg 1 capsule 24h Active Diclofenac Sodium 1 % Transdermal Four times a day 2-4- grams to affected areas 6h Jun, 30 days Active Metoprolol Tartrate 50 mg Orally Twice a day TAKE ONE TABLE T BY MOUTH TWICE DAILY WITH FOOD 12h Active Adderall XR 20 mg Orally Once a day for depression 1 capsule in the morning Aug, 28 days Active Breo Ellipta 200-25 MCG/INH INHALE ONE PUFF BY MOUTH ONCE DAILY 30 Active BusPIRone HCl 15 mg Orally 3 times a day for anxiety 1 tablet Jan, Active Baclofen 20 MG Orally Three times a day 1 tablet with food or milk 8h 30 Active Calcium 600 + D 600-200 MG-UNIT Active MiraLax - Orally 3 times a day until you have a BM then Reduce to once daily. 17 grams mixed with 8 oz of fluid 30 days Active Ondansetron 4 MG Orally every 8 hrs PRN 1 tablet on the t ongue and allow to dissolve Apr, Active Loxapine Succinate 10 mg Orally twice a day for mood 1 capsule Active Glucosamine 1000 MG Orally Once a day 2 capsules 24h Active RESULTS No Results PROCEDURES Procedure Date Ordered Result Body Site [facility] VISIT ESTABLISHED PATIENT August 19, 2017 INSTRUCTIONS MEDICATIONS ADMINISTERED No Known [...]
--- OUTSIDE RECORDS SUMMARY | 2019-07-17 11:11 | XMS REPORT ---
Author Author Sujey GANDHI Organization [facility] Address [address] [place] [address] Care Team Providers Care [employer] T[employer] Name Role Phone WHIT GANDHI Unavailable PROBLEMS Type Condition ICD9-CM Code VBV52-HE Code Onset Dates Condition S tatus SNOMED Code Problem Back pain M54.9 Active 653901081 Problem Diabetes E11.9 Active 91305872 Problem GERD (gastroesophageal reflux disease) K21.9 Active 681799911 Problem Hypertension I10 Active 9809917 3 Problem Anxiety disorder, unspecified F41.9 Active 111244700 Problem Other bipolar disorder F31.89 Active 63740816 Problem Fibromyalgia M79.7 Active 9344820 7 Problem Panic disorder with agoraphobia F40.01 Active 48325661 Problem Panlobular emphysema J43.1 Active 8011672 Problem Chronic obstructive pulmonary disease, unspecified J44.9 Active 62958368 Problem Akathisia G25.71 Active 105040158 Problem Lumbago with sciatica, left side M54.42 Active 709499839 Problem Migraine without aura and without status migrain osus, not intractable G43.009 Active 027507197 Problem Fibrocystic disease of right breast N60.11 Active 67134253 Problem Fibrocystic disease of left breast N60.12 Active 23137857 Problem Slow transit constipation K59.01 Acti ve 00643596 Problem Essential tremor G25.0 Active 609 318354 Problem Bipolar 1 disorder, depressed, moderate F31.32 Active 92375467 Problem Other chronic pain G89.29 Active 8 7794866 Problem Lumbago with sciatica, right side M54.41 Active 876064449 Problem Irritable bowel syndrome with constipation K58.1 Active 907133484 Problem Arthritis M19.90 Active 8957392 Problem Schizoaffective disorder, bipolar type F25.0 Active 46128305 Problem Irritable bowel syndrome with both constipation and diarrh ea K58.2 Active 45272589 Problem Attention deficit hyperactiv ity disorder (ADHD), predominantly inattentive type F90.0 Active 46683074 Problem Bipolar I disorder with depression F31.9 Active 26581221 Problem Chronic post-traumatic stress disorder (PTSD) F43. 12 Active 022148602 Problem Bipolar affective disorder, remission status unspecified F31.9 Active 07549023 Problem Mild persistent asthma without complication J45.30 Active 347672381 Problem Moderate persistent asthma without complication J4 5.40 Active 175734668 Problem Acute non-recurrent maxillary sinusitis J01.00 Active 25259168 Problem Bipolar 1 disorder, depressed, partial remission F 31.75 Active 97803811 ALLERGIES No Information ENCOUNTERS Encounter Location Date Diagnosis [facility] [address] [facility] [id number] [address] [place] [id number] Mar, [facility] [address] [facility] [id number] [address] [place] [phone] Dec, [place] [address] [facility] [id number] [address] [place] [phone] Nov, Bipolar 1 disorder, depresse d, partial remission F31.75 and Panic disorder with agoraphobia F40.01 [facility] [address] [facility] [id number] [address] [place] [phone] Nov, [facility] [address] [facility] [id number] [address] [place] [phone] Nov, Cerebrovascular accident (CV A) due to occlusion of right cerebellar artery I63.541 and Acute non-recurrent maxillary sinusitis J01.00 [facility] [address] [facility] [id number] [address] [place] [id number] Nov, Panlobular emphysema J43.1 [facility] [address] [facility] [id number] [address] [place] [phone] Nov, [facility] [address] [facility] [id number] [address] [place] [phone] Nov, [facility] [address] [facility] [id number] [address] [place] [phone] Nov, [place] [address] [id number] [address] [place] [phone] Nov, [facility] [address] [facility] [id number] [address] [place] [phone] Nov, [facility] [address] [facility] [id number] [address] [place] [phone] Nov, [facility] [address] [facility] [id number] [address] [place] [id number] Nov, [facility] [address] [facility] [id number] [address] [place] [id number] Nov, Mild persistent asthma witho ut complication J45.30 and Irritable bowel syndrome with both constipation and diarrhea K58.2 [facility] [address] [facility] [id number] [address] [place] [phone] Nov, [facility] [address] [facility] [id number] [address] [place] [phone] Oct, [facility] [address] [facility] [id number] [address] [place] [phone] Oct, [facility] [address] [facility] [id number] [address] [place] [id number] Oct, Type 2 diabetes mellitus wit h diabetic neuropathy, unspecified whether senior living insulin use E11.40 ; Diabetes E11.9 ; Slow transit constipation K59.01 ; Edema of both legs R60.0 and Dysfunction of right eustachian tube H69.81 [facility] [address] [facility] [id number] [address] [place] [phone] Oct, Frequent headaches R51 [facility] [address] [id number] [address] [place] [phone] Oct, [facility] [address] [facility] [id number] [address] [place] [phone] Oct, [facility] [address] [facility] [id number] [address] [place] [phone] Oct, [facility] [address] [facility] [id number] [address] [place] [phone] Oct, [facility] [address] [facility] [id number] [address] [place] [phone] Oct, [facility] [address] [facility] [id number] [address] [place] [phone] Oct, [facility] [address] [facility] [id number] [address] [place] [phone] Oct, [facility] [address] [facility] [id number] [address] [place] [phone] Oct, [facility] [address] [facility] [id number] [address] [place] [phone] September, Frequent headaches R51 [facility] [address] [facility] [id number] [address] [place] [phone] September, Bilateral otitis media with effusion H65.93 ; Dizziness R42 and Essential tremor G25.0 [facility] [address] [facility] [id number] [address] [place] [id number] September, Chronic obstructive pulmonar y disease, unspecified COPD type J44.9 [facility] [address] [facility] [id number] [address] [place] [phone] September, Chronic obstructive pulmonar y disease, unspecified COPD type J44.9 [facility] [address] [facility] [id number] [address] [place] [id number] September, Migraine without aura and wi thout status migrainosus, not intractable G43.009 [facility] [address] [facility] [id number] [address] [place] [id number] September, [facility] [address] [facility] [id number] [address] [place] [phone] September, [facility] [address] [facility] [id number] [address] [place] [phone] September, [facility] [address] [place] [id number] [address] [place] [phone] September, Frequent headaches R51 [place] [address] [facility] [id number] [address] [place] [id number] Aug, [facility] [address] [place] [id number] [address] [place] [id number] Aug, Breast mass, right N63.10 [place] [address] [place] [id number] [place] [phone] Aug, Breast lump N63.0 [place] [address] [place] [id number] [address] [place] [phone] Aug, [place] [address] [address] Aug, Bipolar affective disorder, remission status unspecified F31.9 and Diabetes E11.9 [place] [address] [phone] Aug, Diabetes E11.9 ; Schizoaffec tive disorder, bipolar type F25.0 ; Pharyngitis due to other organism J02.8 ; Panlobular emphysema J43.1 and Irritable bowel syndrome with both constipation and diarrhea K58.2 [place] [address] [address] Aug, Abnormal mammogram R92.8 [place] [address] [place] [id number] [address] [place] [id number] Aug, [place] [address] [place] [id number] [place] [phone] Aug, Bipolar 1 disorder, depresse d, moderate F31.32 ; Panic disorder with agoraphobia F40.01 and Chronic post-traumatic stress disorder (PTSD) F43.12 [place] [address] [place] [id number] [address] [place] [phone] Aug, [place] [address] [place] [id number] [place] [phone] Aug, [facility] [address] [facility] [id number] [address] [place] [phone] Aug, [facility] [address] [facility] [id number] [address] [place] [phone] Jul, [facility] [address] [facility] [id number] [address] [place] [id number] Jul, Mild persistent asthma witho ut complication J45.30 [facility] [address] [id number] [address] [place] [id number] 19 Jul, 2017 Mild persistent asthma witho ut complication J45.30 [facility] [address] [facility] [id number] [address] [place] [id number] 15 Jul, 2017 Bipolar affective disorder, remission status unspecified F31.9 ; Diabetes E11.9 and Irritable bowel syndrome with constipation K58.1 [facility] [address] [facility] [id number] [address] [place] [phone] Jul, [facility] [address] [facility] [id number] [address] [place] [id number] Jul, [facility] [address] [facility] [id number] [address] [place] [id number] Jul, Frequent headaches R51 [facility] [address] [facility] [id number] [address] [place] [phone] Jul, [facility] [address] [facility] [id number] [address] [place] [id number] Jul, [facility] [address] [facility] [id number] [address] [place] [phone] Jul, [facility] [address] [facility] [id number] [address] [place] [id number] Jul, Frequent headaches R51 ; Fib rocystic disease of left breast N60.12 ; Fibrocystic disease of right breast N60.11 and Diabetes E11.9 [facility] [address] [id number] [address] [place] [phone] Jul, [facility] [address] [facility] [id number] [address] [place] [phone] Jul, [facility] [address] [facility] [id number] [address] [place] [id number] Jun, Exudative tonsillitis J03.90 [facility] [address] [place] [id number] [address] [place] [phone] 20 Jun, 2017 [facility] [address] [facility] [id number] [address] [place] [id number] 19 Jun, 2017 [facility] [address] [id number] 15 Jun, 2017 Mild persistent asthma witho ut complication J45.30 ; Chronic obstructive pulmonary disease, unspecified COPD type J44.9 and Exudative tonsillitis J03.90 [place] [address] [place] [id number] [address] [place] [id number] 13 Jun, 2017 Encounter for immunization Z 23 [facility] [address] [facility] [id number] [address] [place] [id number] 12 Jun, 2017 [facility] [address] [place] [id number] [address] [place] [phone] Jun, [facility] [address] [facility] [id number] [address] [place] [id number] Jun, [facility] [address] [facility] [id number] [address] [place] [id number] 06 Jun, 2017 Tonsillitis J03.90 [facility] [address] [facility] [id number] [address] [place] [phone] 05 Jun, 2017 [facility] [address] [place] [id number] [address] [place] [id number] 03 Jun, 2017 Acute non-recurrent maxillar y sinusitis J01.00 [facility] [address] [facility] [id number] [address] [place] [phone] Jun, [facility] [address] [place] [id number] [address] [place] [phone] May, [facility] [address] [place] [id number] [place] [phone] May, [facility] [address] [place] [id number] [place] [phone] May, GERD (gastroesophageal reflu x disease) K21.9 [facility] [address] [place] [id number] [place] [phone] May, Migraine without aura and wi thout status migrainosus, not intractable G43.009 [place] [address] [id number] May, [place] [address] [phone] May, [place] [address] [phone] May, Panlobular emphysema J43.1 a nd Acute non-recurrent maxillary sinusitis J01.00 [place] [address] [id number] May, Bipolar 1 disorder, depresse d, moderate F31.32 ; Panic disorder with agoraphobia F40.01 and Akathisia G25.71 [place] [address] [place] [id number] [address] [place] [phone] Apr, [place] [address] [id number] Apr, [place] [address] [id number] Apr, Acute non-recurrent maxillar y sinusitis J01.00 [place] [address] [place] [id number] [place] [phone] 07 Dec, 2017 Panlobular emphysema J43.1 [facility] [address] [id number] [address] [place] [id number] 04 Apr, 2017 [facility] [address] [id number] [address] [place] [id number] 04 Apr, 2017 Exudative tonsillitis J03.90 and Sore throat J02.9 [facility] [address] [facility] [id number] [address] [place] [phone] 17 Mar, 2017 [facility] [address] [facility] [id number] [address] [place] [phone] Mar, Acute non-recurrent maxillar y sinusitis J01.00 [place] [address] [facility] [id number] [address] [place] [phone] Mar, [facility] [address] [facility] [id number] [address] [place] [id number] Mar, Panlobular emphysema J43.1 a nd Diabetes E11.9 [facility] [address] [facility] [id number] [address] [place] [id number] Mar, [facility] [address] [facility] [id number] [address] [place] [id number] Feb, Wheezing R06.2 and Acute rec urrent pansinusitis J01.41 [facility] [address] [facility] [id number] [address] [place] [phone] Feb, [facility] [address] [facility] [id number] [address] [place] [phone] Feb, Acute non-recurrent maxillar y sinusitis J01.00 [facility] [address] [facility] [id number] [address] [place] [id number] Feb, Chronic obstructive pulmonar y disease, unspecified J44.9 [facility] [address] [facility] [id number] [address] [place] [phone] Feb, Hypoxemia R09.02 and Chronic obstructive pulmonary disease, unspecified J44.9 [facility] [address] [id number] [address] [place] [id number] 28 Jan, 2017 Bipolar 1 disorder, depresse d, moderate F31.32 ; Panic disorder with agoraphobia F40.01 ; Chronic post-traumatic stress disorder (PTSD) F43.12 ; Diabetes E11.9 and Moderate persistent asthma without complication J45.40 [place] [address] [id number] [address] [place] [id number] 22 Jan, 2017 [facility] [address] [id number] [address] [place] [id number] 19 Jan, 2017 Acute non-recurrent maxillar y sinusitis J01.00 [place] [address] [facility] [id number] [address] [place] [id number] 18 Jan, 2017 [place] [address] [facility] [id number] [address] [place] [phone] Jan, [place] [address] [id number] [address] [place] [id number] Jan, [facility] J[facility].40 and Hypoxemia R09.02 [place] [address] [facility] [id number] [address] [place] [phone] Jan, Moderate persistent asthma w [facility] complication J45.40 and Hypoxemia R09.02 [place] [address] [id number] [address] [place] [phone] Jan, [facility] [address] [id number] [address] [place] [phone] Dec, Acute non-recurrent maxillar y sinusitis J01.00 [facility] [address] [id number] [address] [place] [id number] Dec, Chronic obstructive pulmonar y disease, unspecified J44.9 [facility] [address] [facility] [id number] [address] [place] [id number] Dec, [facility] [address] [facility] [id number] [address] [place] [id number] Dec, Mild persistent asthma witho ut complication J45.30 and Other chronic pain G89.29 [facility] [address] [id number] [address] [place] [id number] Nov, [facility] [address] [id number] [address] [place] [id number] Nov, Acute non-recurrent maxillar y sinusitis J01.00 [facility] [address] [id number] [address] [place] [phone] Nov, [facility] [address] [id number] [address] [place] [id number] Nov, [facility] [address] [facility] [id number] [address] [place] [id number] Oct, [facility] [address] [facility] [id number] [address] [place] [id number] Oct, Bipolar 1 disorder, depresse d, partial remission F31.75 ; Panic disorder with agoraphobia F40.01 and Chronic post-traumatic stress disorder (PTSD) F43.12 [facility] [address] [facility] [id number] [address] [place] [id number] Oct, Acute non-recurrent maxillar y sinusitis J01.00 [facility] [address] [facility] [id number] [address] [place] [id number] Oct, [facility] [address] [facility] [id number] [address] [place] [id number] Oct, Diabetes E11.9 [facility] [address] [id number] [address] [place] [id number] September, Diabetes E11.9 [facility] [address] [facility] [id number] [address] [place] [phone] September, Diabetes E11.9 and Sinus tac hycardia R00.0 [facility] [address] [facility] [id number] [address] [place] [id number] September, [facility] [address] [facility] [id number] [address] [place] [phone] September, [facility] [address] [place] [id number] [address] [place] [phone] Aug, Diabetes E11.9 and Lumbago w ith sciatica, right side M54.41 [facility] [address] [place] [id number] [address] [place] [id number] Aug, [facility] [address] [place] [id number] [place] [phone] Jul, Bipolar 1 disorder, depresse d, moderate F31.32 ; Panic disorder with agoraphobia F40.01 and Chronic post-traumatic stress disorder (PTSD) F43.12 [facility] [address] [place] [id number] [address] [place] [phone] Jul, Sore throat J02.9 [facility] [address] [place] [id number] [address] [place] [phone] Jul, [facility] [address] [id number] [address] [place] [id number] Jul, [facility] [address] [id number] [address] [place] [phone] Jul, [facility] [address] [id number] [address] [place] [id number] Jul, [facility] [address] [id number] [address] [place] [id number] Jul, Sore throat J02.9 and Pharyn gitis, unspecified etiology J02.9 [facility] [address] [id number] [address] [place] [id number] Jun, [facility] [address] [facility] [id number] [address] [place] [phone] Jun, Diabetes E11.9 [facility] [address] [id number] [address] [place] [phone] Jun, [facility] [address] [id number] [address] [place] [phone] Jun, [facility] [address] [id number] [address] [place] [id number] Jun, [facility] [address] [id number] [address] [place] [phone] Jun, [facility] [address] [id number] [address] [place] [phone] Jun, [facility] [address] [id number] [address] [place] [id number] Jun, [facility] [address] [id number] [address] [place] [phone] Jun, [facility] [address] [id number] [address] [place] [id number] Jun, [facility] [address] [id number] [address] [place] [address] May, Diabetes E11.9 ; Other chron ic pain G89.29 ; Acute recurrent maxillary sinusitis J01.01 ; Bipolar I disorder with depression F31.9 and Anxiety disorder, unspecified F41.9 [facility] [address] [id number] [address] [place] [phone] May, [facility] [address] [id number] [address] [place] [address] May, Diabetes E11.9 ; Bipolar I d isorder with depression F31.9 ; Anxiety disorder, unspecified F41.9 ; Other chronic pain G89.29 and Acute recurrent maxillary sinusitis J01.01 [facility] [address] [id number] [address] [place] [id number] May, [facility] [address] [id number] [address] [place] [id number] May, Attention deficit hyperactiv ity disorder (ADHD), predominantly inattentive type F90.0 [place] [address] [facility] [id number] [address] [place] [phone] May, [place] [address] [facility] [id number] [address] [place] [id number] Apr, Attention deficit hyperactiv ity disorder (ADHD), predominantly inattentive type F90.0 and Non-seasonal allergic rhinitis due to other allergic trigger J30.89 [place] [address] [id number] [address] [place] [phone] Apr, Bipolar 1 disorder, depresse d, moderate F31.32 ; Panic disorder with agoraphobia F40.01 and Chronic post-traumatic stress disorder (PTSD) F43.12 [place] [address] [id number] [place] [phone] 06 Apr, 2016 Dental examination Z01.20 [place] [address] [id number] [address] [place] [phone] Mar, [place] [address] [id number] [address] [place] [id number] Mar, [place] [address] [address] Mar, Bipolar I disorder with depr ession F31.9 and Anxiety disorder, unspecified F41.9 [place] [address] [id number] [address] [place] [id number] 08 Mar, 2016 Panic disorder with agorapho syd F40.01 ; Bipolar 1 disorder, depressed, moderate F31.32 and Chronic post-traumatic stress disorder (PTSD) F43.12 [place] [address] [id number] [address] [place] [id number] 04 Mar, 2016 [place] [address] [id number] [address] [place] [phone] 02 Mar, 2016 Dental caries K02.9 [place] [address] [id number] [address] [place] [id number] Feb, Lumbago with sciatica, left side M54.42 ; Lumbago with sciatica, right side M54.41 and Other chronic pain G89.29 [facility] [address] [facility] [id number] [address] [place] [id number] 17 Feb, 2016 [facility] [address] [facility] [id number] [address] [place] [id number] Feb, [facility] [address] [id number] [address] [place] [phone] Feb, Bipolar I disorder with depr ession F31.9 ; PTSD (post-traumatic stress disorder) F43.10 and Mood disorder F39 [place] [address] [id number] [address] [place] [phone] Feb, [facility] [address] [id number] [address] [place] [id number] Feb, Dental examination Z01.20 [facility] [address] [id number] [address] [place] [id number] 07 Feb, 2016 [facility] [address] [id number] [address] [place] [phone] Feb, Acute bronchitis, unspecifie d organism J20.9 [facility] [address] [id number] [address] [place] [id number] Jan, Mood disorder F39 ; Migraine without aura and without status migrainosus, not intractable G43.009 ; Irritable bowel syndrome, unspecified type K58.9 ; Diabetes E11.9 and Encounter for immunization Z23 [facility] [address] [facility] [id number] [address] [place] [id number] 15 Jan, 2016 [place] [address] [id number] [address] [place] [id number] 06 Jan, 2016 [facility] [address] [id number] [address] [place] [id number] Jan, [facility] [id number] [place] [phone] Jan, [facility] [address] [facility] [id number] [address] [place] [phone] Jan, [facility] [address] [facility] [id number] [address] [place] [phone] Dec, Bipolar I disorder with depr ession F31.9 ; PTSD (post-traumatic stress disorder) F43.10 and Panic disorder with agoraphobia F40.01 [facility] [address] [facility] [id number] [address] [place] [id number] Dec, Chronic obstructive pulmonar y disease, unspecified COPD type J44.9 ; Tremor R25.1 and Anxiety F41.9 [facility] [address] [facility] [id number] [address] [place] [id number] Dec, [facility] [address] [id number] [address] [place] [phone] Nov, Tremors of nervous system R2 5.1 and Cramping of feet R25.2 [facility] [address] [facility] [id number] [address] [place] [phone] Nov, [facility] [address] [facility] [id number] [address] [place] [id number] Nov, [facility] [address] [facility] [id number] [address] [place] [id number] Oct, Chronic obstructive pulmonar y disease, unspecified J44.9 [facility] [address] [facility] [id number] [address] [place] [id number] Oct, [facility] [address] [id number] [address] [place] [id number] Oct, Tremor R25.1 [facility] [address] [facility] [id number] [address] [place] [id number] Oct, Bipolar I disorder with depr ession F31.9 ; Diabetes E11.9 ; PTSD (post-traumatic stress disorder) F43.10 and Panic disorder with agoraphobia F40.01 [facility] [address] [id number] [address] [place] [id number] Oct, Mood disorder F39 [facility] [address] [id number] [address] [place] [id number] September, [facility] [address] [facility] [id number] [address] [place] [phone] September, Diabetes E11.9 ; Bipolar I d isorder with depression F31.9 ; PTSD (post-traumatic stress disorder) F43.10 and Panic disorder with agoraphobia F40.01 [place] [address] [facility] [id number] [address] [place] [phone] September, Mood disorder F39 ; Schizoaf fective disorder, unspecified type F25.9 ; Arthritis M19.90 ; Tremor R25.1 ; Acute non-recurrent frontal sinusitis J01.10 and Blood in stool K92.1 [facility] [address] [facility] [id number] [address] [place] [phone] September, [facility] [address] [id number] [address] [place] [phone] September, Chronic obstructive pulmonar y disease, unspecified J44.9 [place] [address] [facility] [id number] [address] [place] [id number] September, Diabetes E11.9 [address] [id number] [address] [place] [id number] Aug, Other bipolar disorder F31.8 9 and Anxiety disorder, unspecified F41.9 [facility] [address] [facility] [id number] [address] [place] [id number] Aug, [facility] [address] [facility] [id number] [address] [place] [phone] Aug, Diabetes E11.9 [facility] [address] [facility] [id number] [address] [place] [id number] Aug, [facility] [address] [id number] [address] [place] [id number] 14 Aug, 2015 Diabetes E11.9 ; Fatigue R53 .83 and Dizziness R42 [facility] [address] [id number] [address] [place] [id number] 13 Aug, 2015 Other bipolar disorder F31.8 9 [facility] [address] [id number] [address] [place] [phone] Aug, Generalized anxiety disorder F41.1 [facility] [address] [id number] [address] [place] [id number] Aug, Other bipolar disorder F31.8 9 and Anxiety disorder, unspecified F41.9 [facility] [address] [id number] [address] [place] [phone] Aug, [facility] [address] [id number] [address] [place] [id number] 29 Jul, 2015 [facility] [address] [id number] [address] [place] [id number] 24 Jul, 2015 [facility] [address] [id number] [address] [place] [id number] 23 Jul, 2015 Bronchitis J40 [facility] [address] [id number] [address] [place] [id number] Jul, Anxiety disorder F41.9 [facility] [address] [id number] [address] [place] [id number] Jul, Other bipolar disorder F31.8 9 and Anxiety disorder, unspecified F41.9 [facility] [address] [id number] [address] [place] [id number] 18 Jul, 2015 Other bipolar disorder F31.8 9 and Fibromyalgia M79.7 [facility] [address] [id number] [address] [place] [id number] 10 Jul, 2015 [facility] [address] [id number] [address] [place] [phone] Jul, [facility] [address] [facility] [id number] [address] [place] [id number] Jul, [facility] [address] [facility] [id number] [address] [place] [phone] Jul, Other bipolar disorder F31.8 9 and Anxiety disorder, unspecified F41.9 [facility] [address] [facility] [id number] [address] [place] [id number] Jun, GERD (gastroesophageal reflu x disease) K21.9 [facility] [address] [facility] [id number] [address] [place] [phone] Jun, [facility] [address] [id number] [address] [place] [id number] May, [facility] [address] [id number] [address] [place] [id number] May, Diabetes E11.9 ; Back pain M 54.9 ; GERD (gastroesophageal reflux disease) K21.9 ; Hypertension I10 and Peripheral neuropathy G62.9 [facility] [address] [facility] [id number] [address] [place] [phone] Mar, [facility] [address] [id number] [address] [place] [id number] Mar, [facility] [address] [id number] [address] [place] [id number] Mar, Acute sinusitis J01.90 and O titis media, left H66.92 [facility] [address] [facility] [id number] [address] [place] [phone] Feb, [facility] [address] [facility] [id number] [address] [place] [phone] Feb, [facility] [address] [facility] [id number] [address] [place] [id number] Feb, [facility] [address] [id number] [address] [place] [id number] Feb, [facility] [address] [facility] [id number] [address] [place] [id number] Jan, [facility] [address] [id number] [address] [place] [id number] Jan, Diabetes 250.00 and Back higinio n 724.5 [facility] [address] [id number] [address] [place] [id number] Jan, [facility] [address] [id number] [address] [place] [id number] Dec, Diabetes 250.00 ; Benign ess ential hypertension 401.1 and Allergic rhinitis 477.9 [facility] [address] [id number] [address] [place] [id number] Dec, [facility] [address] [id number] [address] [place] [id number] Dec, [facility] [address] [id number] [address] [place] [id number] Dec, Psychosis 298.9 [facility] [id number] [place] [phone] Dec, Medication side effect 995.2 0 and Generalized anxiety disorder 300.02 [facility] [address] [id number] [address] [place] [id number] Dec, Acquired cognitive dysfuncti on 294.9 [facility] [address] [id number] [address] [place] [id number] Dec, [facility] [address] [id number] [address] [place] [id number] Dec, Unspecified myalgia and myos itis 729.1 and Generalized anxiety disorder 300.02 [facility] [address] [id number] [address] [place] [id number] Nov, [facility] [address] [id number] [address] [place] [id number] Nov, [facility] [address] [id number] [address] [place] [id number] Nov, [facility] [address] [id number] [address] [place] [phone] Nov, Upper respiratory infection 465.9 and Chronic airway obstruction, not elsewhere classified 496 [facility] [address] [id number] [address] [place] [id number] Nov, Hyponatremia 276.1 [facility] [address] [id number] [address] [place] [phone] Oct, [facility] [address] [id number] [address] [place] [phone] Oct, [facility] [address] [id number] [address] [place] [id number] Oct, [facility] [address] [id number] [address] [place] [id number] Oct, [facility] [address] [id number] [address] [place] [phone] Oct, Hyponatremia 276.1 [facility] [address] [id number] [address] [place] [id number] Oct, [facility] [address] [id number] [address] [place] [phone] Oct, [facility] [address] [id number] [address] [place] [phone] Oct, Generalized anxiety disorder 300.02 [facility] [address] [id number] [address] [place] [id number] Oct, Generalized anxiety disorder 300.02 and Diabetes 250.00 [facility] [address] [id number] [address] [place] [id number] Aug, [facility] [address] [id number] [address] [place] [id number] Aug, [facility] [address] [id number] [address] [place] [address], [place] [address] Jul, [facility] [address] [id number] [address] [place] [address], [place] [address] Jul, [facility] [address] [id number] [address] [place] [address], [place] [address] Jun, [facility] [address] [id number] [address] [place] [address], [place] [address] Jun, [facility] [address] [id number] [address] [place] [address], [place] [address] Jun, [facility] [address] [id number] [address] [place] [address], [place] [address] Jun, [facility] [address] [id number] [address] [place] [address], [place] [address] Jun, [facility] [address] [id number] [address] [place] [address], [place] [address] May, [facility] [address] [id number] [address] [place] [address], [place] [address] May, [facility] [address] [id number] [address] [place] [address], [place] [address] Apr, [facility] [address] [id number] [address] [place] [address], [place] [address] Apr, [facility] [address] [id number] [address] [place] [address], [place] [address] 18 Apr, 2013 [facility] [address] [id number] [address] [place] [address], [place] [address] 18 Apr, 2013 [facility] [address] [id number] [address] [place] [address], [place] [address] 17 Apr, 2013 [facility] [address] [id number] [address] [place] [address], [place] [address] 17 Apr, 2013 [facility] [address] [id number] [address] [place] [address], [place] [address] Apr, [facility] [address] [id number] [address] [place] [address], [place] [address] Apr, [facility] [address] [id number] [address] [place] [address], [place] [address] Feb, [facility] [address] [id number] [address] [place] [address], [place] [address] Feb, [facility] [address] [id number] [address] [place] [address], [place] [address] Jan, [facility] [address] [id number] [address] [place] [address], [place] [address] Jan, [facility] [address] [id number] [address] [place] [address], [place] [address] Dec, [facility] [address] [id number] [address] [place] [address], [place] [address] Dec, [facility] [address] [id number] [address] [place] [address], [place] [address] Dec, [facility] [address] [id number] [address] [place] [address], [place] [address] Nov, [facility] [address] [id number] [address] [place] [address], [place] [address] Nov, [facility] [address] [id number] [address] [place] [address], [place] [address] Nov, [facility] [address] [id number] [address] [place] [address], [place] [address] Oct, [facility] [address] [id number] [address] [place] [address], [place] [address] Oct, [facility] [address] [id number] [address] [place] [address], [place] [address] Oct, [facility] [address] [id number] [address] [place] [address], [place] [address] September, [facility] [address] [id number] [address] [place] [address], [place] [address] September, [facility] [address] [id number] [address] [place] [address], [place] [address] September, [facility] [address] [id number] [address] [place] [address], [place] [address] Aug, [facility] [address] [id number] [address] [place] [address], [place] [address] Aug, [facility] [address] [id number] [address] [place] [address], [place] [address] Aug, [facility] [address] [id number] [address] [place] [address], [place] [address] 16 Aug, 2011 [facility] [address] [id number] [address] [place] [address], [place] [address] Jul, [facility] [address] [id number] [address] [place] [address], [place] [address] Jun, [facility] [address] [id number] [address] [place] [address], [place] [address] 14 Jun, 2011 [facility] [address] [id number] [address] [place] [address], [place] [address] Jun, [facility] [address] [id number] [address] [place] [address], [place] [address] Jun, [facility] [address] [id number] [address] [place] [address], [place] [address] Jun, [facility] [address] [id number] [address] [place] [address], [place] [address] May, [facility] [address] [id number] [address] [place] [address], [place] [address] May, [facility] [address] [id number] [address] [place] [address], [place] [address] 09 May, 2011 [facility] [address] [id number] [address] [place] [address], [place] [address] May, [facility] [address] [id number] [address] [place] [address], [place] [address] Apr, [facility] [address] [id number] [address] [place] [address], [place] [address] Apr, [facility] [address] [id number] [address] [place] [address], [place] [address] Apr, [facility] [address] [id number] [address] [place] [address], [place] [address] Mar, [facility] [address] [id number] [address] [place] [address], [place] [address] Mar, [facility] [address] [id number] [address] [place] [address], [place] [address] Mar, [facility] [address] [id number] [address] [place] [address], [place] [address] Feb, [facility] [address] [id number] [address] [place] [address], [place] [address] Feb, [facility] [address] [id number] [address] [place] [address], [place] [address] Feb, [facility] [address] [id number] [address] [place] [address], [place] [address] Nov, [facility] [address] [id number] [address] [place] [address], [place] [address] September, [facility] [address] [id number] [address] [place] [address], [place] [address] Aug, [facility] [address] [id number] [address] [place] [address], [place] [address] 14 Jul, 2010 [facility] [address] [id number] [address] [place] [address], [place] [address] May, [facility] [address] [id number] [address] [place] [address], [place] [address] Apr, [facility] [address] [id number] [address] [place] [id number] Apr, [facility] [address] [facility] [id number] [address] [place] [id number] Apr, [facility] [address] [facility] [id number] [address] [place] [id number] Apr, [facility] [address] [facility] [id number] [address] [place] [phone] Apr, IMMUNIZATIONS No Known Immunizations SOCIAL HISTORY Never Assessed REASON FOR VISIT COPD inhaler/CCM note PLAN OF CARE VITAL SIGNS MEDICATIONS Medication Instructions Dosage Frequency Start Date End Date Duration S samantha Zabalaro Ellipta 62.5-25 MCG/INH Inhalation Once a day [...]
--- OUTSIDE RECORDS SUMMARY | 2019-07-17 11:11 | XMS REPORT ---
Author Author Sujey GANDHI Organization [facility] Address [address] [place] [address] Care Team Providers Care Mime Artist Name Role Phone WHIT GANDHI Unavailable PROBLEMS Type Condition ICD9-CM Code SPE11-QE Code Onset Dates Condition S tatus SNOMED Code Problem Back pain M54.9 Active 067047572 Problem Diabetes E11.9 Active 25327934 Problem GERD (gastroesophageal reflux disease) K21.9 Active 071316032 Problem Hypertension I10 Active 4080549 3 Problem Anxiety disorder, unspecified F41.9 Active 281360470 Problem Other bipolar disorder F31.89 Active 59653947 Problem Fibromyalgia M79.7 Active 8962288 7 Problem Panic disorder with agoraphobia F40.01 Active 54713855 Problem Panlobular emphysema J43.1 Active 9492125 Problem Chronic obstructive pulmonary disease, unspecified J44.9 Active 13153545 Problem Akathisia G25.71 Active 187384495 Problem Lumbago with sciatica, left side M54.42 Active 000450283 Problem Migraine without aura and without status migrain osus, not intractable G43.009 Active 296783606 Problem Fibrocystic disease of right breast N60.11 Active 30367309 Problem Fibrocystic disease of left breast N60.12 Active 84474192 Problem Slow transit constipation K59.01 Acti ve 42759475 Problem Essential tremor G25.0 Active 609 762836 Problem Bipolar 1 disorder, depressed, moderate F31.32 Active 95212304 Problem Other chronic pain G89.29 Active 8 1635335 Problem Lumbago with sciatica, right side M54.41 Active 109992608 Problem Irritable bowel syndrome with constipation K58.1 Active 320846707 Problem Arthritis M19.90 Active 4388190 Problem Schizoaffective disorder, bipolar type F25.0 Active 44507639 Problem Irritable bowel syndrome with both constipation and diarrh ea K58.2 Active 02679334 Problem Attention deficit hyperactiv ity disorder (ADHD), predominantly inattentive type F90.0 Active 17656355 Problem Bipolar I disorder with depression F31.9 Active 76673511 Problem Chronic post-traumatic stress disorder (PTSD) F43. 12 Active 778251722 Problem Bipolar affective disorder, remission status unspecified F31.9 Active 67621620 Problem Mild persistent asthma without complication J45.30 Active 798688159 Problem Moderate persistent asthma without complication J4 5.40 Active 839703887 Problem Acute non-recurrent maxillary sinusitis J01.00 Active 05389464 Problem Bipolar 1 disorder, depressed, partial remission F 31.75 Active [id number] ALLERGIES No Information ENCOUNTERS Encounter Location Date Diagnosis [facility] [address] [id number] [address] [place] [phone] Dec, [facility] [address] [id number] [address] [place] [address] Nov, [facility] [address] [id number] [address] [place] [address] Nov, 2018 Cerebrovascular accident (CV A) due to occlusion of right cerebellar artery I63.541 and Acute non-recurrent maxillary sinusitis J01.00 [facility] [address] [id number] [address] [place] [phone] Nov, [facility] [address] [id number] [address] [place] [address] Nov, [facility] [address] [id number] [address] [place] [phone] Nov, [facility] [address] [id number] [address] [place] [address] Nov, [facility] [address] [id number] [address] [place] [address] Nov, [facility] [address] [id number] [address] [place] [address] Nov, [facility] [address] [id number] [address] [place] [address] Nov, [facility] [address] [id number] [address] [place] [phone] Nov, [facility] [address] [facility] [id number] [address] [place] [phone] Nov, Mild persistent asthma witho ut complication J45.30 and Irritable bowel syndrome with both constipation and diarrhea K58.2 [facility] [address] [facility] [id number] [address] [place] [address] Nov, [facility] [address] [id number] [address] [place] [address] Oct, [facility] [address] [facility] [id number] [address] [place] [phone] Oct, [facility] [address] [facility] [id number] [address] [place] [phone] Oct, Type 2 diabetes mellitus wit h diabetic neuropathy, unspecified whether fpc insulin use E11.40 ; Diabetes E11.9 ; Slow transit constipation K59.01 ; Edema of both legs R60.0 and Dysfunction of right eustachian tube H69.81 [facility] [address] [facility] [id number] [address] [place] [phone] Oct, Frequent headaches R51 [facility] [address] [facility] [id number] [address] [place] [phone] Oct, [facility] [address] [facility] [id number] [address] [place] [phone] Oct, [facility] [address] [facility] [id number] [address] [place] [phone] Oct, [facility] [address] [facility] [id number] [address] [place] [id number] 18 Oct, 2017 [facility] [address] [facility] [id number] [address] [place] [phone] Oct, [facility] [address] [facility] [id number] [address] [place] [phone] 14 Oct, 2017 [facility] [address] [place] [id number] [address] [place] [phone] Oct, [facility] [address] [facility] [id number] [address] [place] [address] Oct, [facility] [address] [facility] [id number] [address] [place] [phone] September, Frequent headaches R51 [facility] [address] [place] [id number] [address] [place] [address] September, Bilateral otitis media with effusion H65.93 ; Dizziness R42 and Essential tremor G25.0 [facility] [address] [facility] [id number] [address] [place] [phone] September, Chronic obstructive pulmonar y disease, unspecified COPD type J44.9 [facility] [address] [place] [id number] [address] [place] [phone] September, Chronic obstructive pulmonar y disease, unspecified COPD type J44.9 [facility] [address] [place] [id number] [address] [place] [address] September, Migraine without aura and wi thout status migrainosus, not intractable G43.009 [facility] [address] [place] [id number] [address] [place] [phone] September, [facility] [address] [place] [id number] [address] [place] [phone] September, [facility] [address] [place] [id number] [address] [place] [phone] September, [facility] [address] [facility] [id number] [address] [place] [phone] September, Frequent headaches R51 [facility] [address] [facility] [id number] [address] [place] [phone] Aug, [facility] [address] [place] [id number] [address] [place] [address] Aug, Breast mass, right N63.10 [facility] [address] [id number] [address] [place] [phone] Aug, Breast lump N63.0 [facility] [address] [facility] [id number] [address] [place] [phone] Aug, [facility] [address] [facility] [id number] [address] [place] [phone] Aug, Bipolar affective disorder, remission status unspecified F31.9 and Diabetes E11.9 [facility] [address] [facility] [id number] [address] [place] [phone] Aug, Diabetes E11.9 ; Schizoaffec tive disorder, bipolar type F25.0 ; Pharyngitis due to other organism J02.8 ; Panlobular emphysema J43.1 and Irritable bowel syndrome with both constipation and diarrhea K58.2 [place] [address] [facility] [id number] [address] [place] [phone] Aug, Abnormal mammogram R92.8 [place] [address] [facility] [id number] [address] [place] [phone] Aug, [place] [address] [facility] [id number] [address] [place] [address] Aug, Bipolar 1 disorder, depresse d, moderate F31.32 ; Panic disorder with agoraphobia F40.01 and Chronic post-traumatic stress disorder (PTSD) F43.12 [place] [address] [facility] [id number] [address] [place] [phone] Aug, [place] [address] [facility] [id number] [address] [place] [address] Aug, [place] [address] [facility] [id number] [address] [place] [phone] Aug, [place] [address] [facility] [id number] [address] [place] [phone] Jul, [place] [address] [facility] [id number] [address] [place] [phone] 20 Jul, 2017 Mild persistent asthma witho ut complication J45.30 [facility] [address] [id number] [address] [place] [phone] 19 Jul, 2017 Mild persistent asthma witho ut complication J45.30 [facility] [address] [id number] [address] [place] [phone] 15 Jul, 2017 Bipolar affective disorder, remission status unspecified F31.9 ; Diabetes E11.9 and Irritable bowel syndrome with constipation K58.1 [facility] [address] [id number] [address] [place] [phone] 13 Jul, 2017 [facility] [address] [id number] [address] [place] [id number] 09 Jul, 2017 [facility] [address] [id number] [address] [place] [phone] Jul, Frequent headaches R51 [facility] [address] [id number] [address] [place] [phone] Jul, [facility] [address] [id number] [address] [place] [phone] Jul, [facility] [address] [id number] [address] [place] [phone] Jul, [facility] [address] [id number] [address] [place] [phone] Jul, Frequent headaches R51 ; Fib rocystic disease of left breast N60.12 ; Fibrocystic disease of right breast N60.11 and Diabetes E11.9 [facility] [address] [id number] [address] [place] [phone] Jul, [facility] [address] [id number] [address] [place] [phone] Jul, [facility] [address] [facility] [id number] [address] [place] [phone] Jun, Exudative tonsillitis J03.90 [facility] [address] [facility] [id number] [address] [place] [phone] 20 Jun, 2017 [facility] [address] [facility] [id number] [address] [place] [phone] 19 Jun, 2017 [facility] [address] [facility] [id number] [address] [place] [phone] 15 Jun, 2017 Mild persistent asthma witho ut complication J45.30 ; Chronic obstructive pulmonary disease, unspecified COPD type J44.9 and Exudative tonsillitis J03.90 [facility] [address] [facility] [id number] [address] [place] [id number] 13 Jun, 2017 Encounter for immunization Z 23 [facility] [address] [facility] [id number] [place] [phone] 12 Jun, 2017 [facility] [address] [address] 12 Jun, 2017 [facility] [address] [place] [id number] [address] [place] [phone] 09 Jun, 2017 [facility] [address] [facility] [id number] [address] [place] [address] 06 Jun, 2017 Tonsillitis J03.90 [facility] [address] [facility] [id number] [address] [place] [phone] 05 Jun, 2017 [facility] [address] [facility] [id number] [address] [place] [phone] 03 Jun, 2017 Acute non-recurrent maxillar y sinusitis J01.00 [facility] [address] [facility] [id number] [address] [place] [phone] Jun, [facility] [address] [place] [id number] [address] [place] [phone] May, [facility] [address] [facility] [id number] [address] [place] [phone] May, [facility] [address] [place] [id number] [address] [place] [phone] May, GERD (gastroesophageal reflu x disease) K21.9 [facility] [address] [facility] [id number] [address] [place] [address] May, Migraine without aura and wi thout status migrainosus, not intractable G43.009 [facility] [address] [place] [id number] [address] [place] [phone] May, [facility] [address] [place] [id number] [address] [place] [phone] May, [facility] [address] [address] May, Panlobular emphysema J43.1 a nd Acute non-recurrent maxillary sinusitis J01.00 [place] [address] [address] May, Bipolar 1 disorder, depresse d, moderate F31.32 ; Panic disorder with agoraphobia F40.01 and Akathisia G25.71 [facility] [id number] [place] [address] Apr, [place] [address] [address] Apr, [place] [address] [address] Apr, Acute non-recurrent maxillar y sinusitis J01.00 [facility] [address] [place] [id number] [address] [place] [phone] Apr, Panlobular emphysema J43.1 [place] [address] [address] Apr, [facility] [address] [place] [id number] [address] [place] [id number] 04 Apr, 2017 Exudative tonsillitis J03.90 and Sore throat J02.9 [place] [address] [place] [id number] [place] [address] 17 Mar, 2017 [facility] [address] [facility] [id number] [address] [place] [address] 15 Mar, 2017 Acute non-recurrent maxillar y sinusitis J01.00 [facility] [address] [facility] [id number] [address] [place] [phone] 13 Mar, 2017 [facility] [address] [facility] [id number] [address] [place] [address] Mar, Panlobular emphysema J43.1 a nd Diabetes E11.9 [facility] [address] [address] 06 Mar, 2017 [facility] [address] [facility] [id number] [place] [address] 24 Feb, 2017 Wheezing R06.2 and Acute rec urrent pansinusitis J01.41 [facility] [address] [place] [id number] [address] [place] [address] Feb, [facility] [address] [place] [id number] [place] [address] Feb, Acute non-recurrent maxillar y sinusitis J01.00 [facility] [address] [place] [id number] [place] [address] 16 Feb, 2017 Chronic obstructive pulmonar y disease, unspecified J44.9 [facility] [address] [place] [id number] [address] [place] [address] Feb, Hypoxemia R09.02 and Chronic obstructive pulmonary disease, unspecified J44.9 [facility] [address] [address] 28 Jan, 2017 Bipolar 1 disorder, depresse d, moderate F31.32 ; Panic disorder with agoraphobia F40.01 ; Chronic post-traumatic stress disorder (PTSD) F43.12 ; Diabetes E11.9 and Moderate persistent asthma without complication J45.40 [facility] [address] [place] [address] 22 Jan, 2017 [facility] [address] [id number] [address] [place] [address] 19 Jan, 2017 Acute non-recurrent maxillar y sinusitis J01.00 [facility] [address] [id number] [address] [place] [phone] 18 Jan, 2017 [facility] [address] [id number] [address] [place] [phone] 18 Jan, 2017 [facility] [address] [id number] [address] [place] [phone] 12 Jan, 2017 Moderate persistent asthma w ithout complication J45.40 and Hypoxemia R09.02 [facility] [address] [id number] [address] [place] [phone] Jan, Moderate persistent asthma w ithout complication J45.40 and Hypoxemia R09.02 [facility] [address] [id number] [address] [place] [address] Jan, [facility] [address] [id number] [address] [place] [address] Dec, Acute non-recurrent maxillar y sinusitis J01.00 [facility] [address] [id number] [address] [place] [address] Dec, Chronic obstructive pulmonar y disease, unspecified J44.9 [facility] [address] [id number] [address] [place] [address] Dec, [facility] [address] [id number] [address] [place] [address] Dec, Mild persistent asthma witho ut complication J45.30 and Other chronic pain G89.29 [facility] [address] [id number] [address] [place] [address] Nov, [facility] [address] [id number] [address] [place] [address] Nov, Acute non-recurrent maxillar y sinusitis J01.00 [facility] [address] [id number] [address] [place] [address] Nov, [facility] [address] [id number] [address] [place] [address] Nov, [facility] [address] [id number] [address] [place] [phone] Oct, [facility] [address] [id number] [address] [place] [phone] Oct, Bipolar 1 disorder, depresse d, partial remission F31.75 ; Panic disorder with agoraphobia F40.01 and Chronic post-traumatic stress disorder (PTSD) F43.12 [facility] [address] [id number] [address] [place] [phone] Oct, Acute non-recurrent maxillar y sinusitis J01.00 [facility] [address] [id number] [address] [place] [address] Oct, [facility] [address] [id number] [address] [place] [phone] Oct, Diabetes E11.9 [facility] [address] [id number] [address] [place] [phone] September, Diabetes E11.9 [facility] [address] [id number] [address] [place] [address] September, Diabetes E11.9 and Sinus tac hycardia R00.0 [facility] [address] [id number] [address] [place] [address] September, [facility] [address] [id number] [address] [place] [phone] September, [facility] [address] [id number] [address] [place] [phone] Aug, Diabetes E11.9 and Lumbago w ith sciatica, right side M54.41 [facility] [address] [id number] [address] [place] [phone] Aug, [facility] [address] [facility] [id number] [address] [place] [phone] Jul, Bipolar 1 disorder, depresse d, moderate F31.32 ; Panic disorder with agoraphobia F40.01 and Chronic post-traumatic stress disorder (PTSD) F43.12 [facility] [address] [facility] [id number] [address] [place] [id number] Jul, Sore throat J02.9 [facility] [address] [facility] [id number] [address] [place] [id number] Jul, [facility] [address] [facility] [id number] [address] [place] [id number] Jul, [facility] [address] [place] [id number] [address] [place] [phone] Jul, [facility] [address] [facility] [id number] [address] [place] [id number] Jul, [facility] [address] [facility] [id number] [address] [place] [id number] Jul, Sore throat J02.9 and Pharyn gitis, unspecified etiology J02.9 [facility] [address] [facility] [id number] [address] [place] [id number] Jun, [facility] [address] [facility] [id number] [address] [place] [id number] Jun, Diabetes E11.9 [facility] [address] [facility] [id number] [address] [place] [id number] Jun, [facility] [address] [facility] [id number] [address] [place] [id number] Jun, [facility] [address] [facility] [id number] [address] [place] [id number] Jun, [facility] [address] [place] [id number] [address] [place] [id number] Jun, [facility] [address] [id number] [address] [place] [id number] Jun, [facility] [address] [id number] [address] [place] [id number] Jun, [facility] [address] [facility] [id number] [address] [place] [phone] Jun, [facility] [address] [id number] [address] [place] [id number] Jun, [facility] [address] [id number] [address] [place] [phone] May, Diabetes E11.9 ; Other chron ic pain G89.29 ; Acute recurrent maxillary sinusitis J01.01 ; Bipolar I disorder with depression F31.9 and Anxiety disorder, unspecified F41.9 [facility] [address] [facility] [id number] [address] [place] [id number] May, [facility] [address] [id number] [address] [place] [id number] May, Diabetes E11.9 ; Bipolar I d isorder with depression F31.9 ; Anxiety disorder, unspecified F41.9 ; Other chronic pain G89.29 and Acute recurrent maxillary sinusitis J01.01 [facility] [address] [id number] [address] [place] [id number] May, [facility] [address] [id number] [address] [place] [id number] May, Attention deficit hyperactiv ity disorder (ADHD), predominantly inattentive type F90.0 [facility] [address] [facility] [id number] [address] [place] [id number] May, [facility] [address] [facility] [id number] [address] [place] [id number] Apr, Attention deficit hyperactiv ity disorder (ADHD), predominantly inattentive type F90.0 and Non-seasonal allergic rhinitis due to other allergic trigger J30.89 [place] [address] [facility] [id number] [address] [place] [id number] 15 Apr, 2016 Bipolar 1 disorder, depresse d, moderate F31.32 ; Panic disorder with agoraphobia F40.01 and Chronic post-traumatic stress disorder (PTSD) F43.12 [place] [address] [address] [facility] [id number] [address] [place] [address] Apr, Dental examination Z01.20 [place] [address] [id number] [address] [place] [address] Mar, [place] [address] [facility] [id number] [address] [place] [address] Mar, [place] [address] [address] [facility] [id number] [address] [place] [address] Mar, Bipolar I disorder with depr ession F31.9 and Anxiety disorder, unspecified F41.9 [place] [address] [address] [facility] [id number] [address] [place] [id number] 08 Mar, 2016 Panic disorder with agorapho syd F40.01 ; Bipolar 1 disorder, depressed, moderate F31.32 and Chronic post-traumatic stress disorder (PTSD) F43.12 [place] [address] [address] [facility] [id number] [address] [place] [id number] 04 Mar, 2016 [place] [address] [address] [facility] [id number] [address] [place] [address] Mar, Dental caries K02.9 [place] [address] [id number] [address] [place] [address] Feb, Lumbago with sciatica, left side M54.42 ; Lumbago with sciatica, right side M54.41 and Other chronic pain G89.29 [place] [address] [address] [facility] [id number] [address] [place] [phone] 17 Feb, 2016 [place] [address] [address] [facility] [id number] [address] [place] [id number] 14 Feb, 2016 [facility] [address] [facility] [id number] [address] [place] [phone] Feb, Bipolar I disorder with depr ession F31.9 ; PTSD (post-traumatic stress disorder) F43.10 and Mood disorder F39 [facility] [address] [id number] [address] [place] [phone] 13 Feb, 2016 [facility] [address] [facility] [id number] [address] [place] [phone] 11 Feb, 2016 Dental examination Z01.20 [facility] [address] [facility] [id number] [address] [place] [phone] 07 Feb, 2016 [facility] [address] [facility] [id number] [address] [place] [phone] 03 Feb, 2016 Acute bronchitis, unspecifie d organism J20.9 [facility] [address] [facility] [id number] [address] [place] [phone] 26 Jan, 2016 Mood disorder F39 ; Migraine without aura and without status migrainosus, not intractable G43.009 ; Irritable bowel syndrome, unspecified type K58.9 ; Diabetes E11.9 and Encounter for immunization Z23 [facility] [address] [facility] [id number] [address] [place] [phone] 15 Jan, 2016 [facility] [address] [facility] [id number] [address] [place] [phone] Jan, [facility] [address] [facility] [id number] [address] [place] [phone] Jan, [facility] [address] [facility] [id number] [address] [place] [phone] Jan, [facility] [address] [facility] [id number] [address] [place] [phone] Jan, [facility] [address] [facility] [id number] [address] [place] [address] Dec, Bipolar I disorder with depr ession F31.9 ; PTSD (post-traumatic stress disorder) F43.10 and Panic disorder with agoraphobia F40.01 [facility] [address] [facility] [id number] [address] [place] [phone] Dec, Chronic obstructive pulmonar y disease, unspecified COPD type J44.9 ; Tremor R25.1 and Anxiety F41.9 [facility] [address] [id number] [address] [place] [phone] Dec, [facility] [address] [id number] [address] [place] [address] Nov, Tremors of nervous system R2 5.1 and Cramping of feet R25.2 [facility] [address] [facility] [id number] [address] [place] [address] Nov, [facility] [address] [place] [id number] [address] [place] [phone] Nov, [facility] [address] [place] [id number] [address] [place] [address] Oct, Chronic obstructive pulmonar y disease, unspecified J44.9 [facility] [address] [facility] [id number] [address] [place] [phone] Oct, [facility] [address] [facility] [id number] [address] [place] [address] Oct, Tremor R25.1 [facility] [address] [facility] [id number] [address] [place] [address] Oct, Bipolar I disorder with depr ession F31.9 ; Diabetes E11.9 ; PTSD (post-traumatic stress disorder) F43.10 and Panic disorder with agoraphobia F40.01 [facility] [address] [facility] [id number] [address] [place] [phone] Oct, Mood disorder F39 [facility] [address] [place] [id number] [address] [place] [phone] September, [facility] [address] [place] [id number] [address] [place] [phone] September, Diabetes E11.9 ; Bipolar I d isorder with depression F31.9 ; PTSD (post-traumatic stress disorder) F43.10 and Panic disorder with agoraphobia F40.01 [facility] [address] [id number] [address] [place] [phone] September, Mood disorder F39 ; Schizoaf fective disorder, unspecified type F25.9 ; Arthritis M19.90 ; Tremor R25.1 ; Acute non-recurrent frontal sinusitis J01.10 and Blood in stool K92.1 [facility] [address] [id number] [address] [place] [phone] September, [place] [address] [address] [facility] [id number] [address] [place] [address] September, Chronic obstructive pulmonar y disease, unspecified J44.9 [place] [address] [address] [facility] [id number] [address] [place] [phone] September, Diabetes E11.9 [place] [address] [facility] [id number] [address] [place] [phone] Aug, Other bipolar disorder F31.8 9 and Anxiety disorder, unspecified F41.9 [place] [address] [facility] [id number] [address] [place] [phone] Aug, [place] [address] [facility] [id number] [address] [place] [phone] Aug, Diabetes E11.9 [facility] [address] [id number] [address] [place] [address] 18 Aug, 2015 [place] [address] [facility] [id number] [address] [place] [phone] 14 Aug, 2015 Diabetes E11.9 ; Fatigue R53 .83 and Dizziness R42 [facility] [address] [id number] [address] [place] [address] Aug, Other bipolar disorder F31.8 9 [place] [address] [id number] [address] [place] [id number] 07 Aug, 2015 Generalized anxiety disorder F41.1 [facility] [address] [id number] [address] [place] [phone] Aug, Other bipolar disorder F31.8 9 and Anxiety disorder, unspecified F41.9 [facility] [address] [id number] [address] [place] [address] Aug, [facility] [address] [id number] [address] [place] [phone] Jul, [facility] [address] [id number] [address] [place] [phone] 24 Jul, 2015 [facility] [address] [id number] [address] [place] [phone] Jul, Bronchitis J40 [facility] [address] [id number] [address] [place] [phone] Jul, Anxiety disorder F41.9 [facility] [address] [id number] [address] [place] [address] Jul, Other bipolar disorder F31.8 9 and Anxiety disorder, unspecified F41.9 [facility] [address] [id number] [address] [place] [phone] 18 Jul, 2015 Other bipolar disorder F31.8 9 and Fibromyalgia M79.7 [facility] [address] [id number] [address] [place] [phone] Jul, [facility] [address] [id number] [address] [place] [id number] Jul, [facility] [address] [id number] [address] [place] [phone] Jul, [facility] [address] [id number] [address] [place] [phone] Jul, Other bipolar disorder F31.8 9 and Anxiety disorder, unspecified F41.9 [facility] [address] [place] [id number] [address] [place] [address] Jun, GERD (gastroesophageal reflu x disease) K21.9 [facility] [address] [address] Jun, [facility] [address] [address] May, [facility] [address] [address] May, Diabetes E11.9 ; Back pain M 54.9 ; GERD (gastroesophageal reflux disease) K21.9 ; Hypertension I10 and Peripheral neuropathy G62.9 [facility] [address] [address] Mar, [facility] [address] [address] Mar, [facility] [address] [address] Mar, Acute sinusitis J01.90 and O titis media, left H66.92 [facility] [address] [address] Feb, [facility] [address] [address] Feb, [facility] [address] [address] Feb, [facility] [address] [address] Feb, [facility] [address] [address] 29 Jan, 2015 [facility] [address] [address] 24 Jan, 2015 Diabetes 250.00 and Back higinio n 724.5 [facility] [address] [place] [address] Jan, [facility] [address] [facility] [id number] [address] [place] [phone] Dec, Diabetes 250.00 ; Benign ess ential hypertension 401.1 and Allergic rhinitis 477.9 [facility] [address] [place] [id number] [address] [place] [address] Dec, [facility] [address] [place] [id number] [address] [place] [address] Dec, [facility] [address] [place] [id number] [address] [place] [phone] Dec, Psychosis 298.9 [facility] [address] [place] [id number] [place] [address] Dec, Medication side effect 995.2 0 and Generalized anxiety disorder 300.02 [facility] [address] [address] Dec, Acquired cognitive dysfuncti on 294.9 [facility] [address] [place] [id number] [address] [place] [address] Dec, [facility] [address] [place] [id number] [address] [place] [address] Dec, Unspecified myalgia and myos itis 729.1 and Generalized anxiety disorder 300.02 [facility] [address] [place] [id number] [address] [place] [address] Nov, [facility] [address] [place] [id number] [address] [place] [phone] Nov, [facility] [address] [place] [id number] [address] [place] [phone] Nov, [facility] [address] [place] [id number] [address] [place] [phone] Nov, Upper respiratory infection 465.9 and Chronic airway obstruction, not elsewhere classified 496 [facility] [address] [place] [id number] [address] [place] [phone] Nov, Hyponatremia 276.1 [facility] [address] [facility] [id number] [address] [place] [phone] Oct, [facility] [address] [facility] [id number] [address] [place] [address] Oct, [facility] [address] [facility] [id number] [address] [place] [address] Oct, [facility] [address] [facility] [id number] [address] [place] [address] Oct, [facility] [address] [facility] [id number] [address] [place] [address] Oct, Hyponatremia 276.1 [facility] [address] [facility] [id number] [address] [place] [address] Oct, [facility] [address] [facility] [id number] [address] [place] [phone] Oct, [facility] [address] [facility] [id number] [address] [place] [address] Oct, Generalized anxiety disorder 300.02 [facility] [address] [facility] [id number] [address] [place] [address] Oct, Generalized anxiety disorder 300.02 and Diabetes 250.00 [facility] [address] [facility] [id number] [address] [place] [address] Aug, [facility] [address] [facility] [id number] [address] [place] [address] Aug, [facility] [address] [facility] [id number] [address] [place] [address] Jul, [facility] [address] [facility] [id number] [address] [place] [phone] Jul, [facility] [address] [facility] [id number] [address] [place] [address] Jun, [facility] [address] [id number] [address] [place] [address], [place] [address] Jun, [facility] [address] [id number] [address] [place] [address], [place] [address] Jun, [facility] [address] [id number] [address] [place] [address], [place] [address] Jun, [facility] [address] [id number] [address] [place] [address], [place] [address] Jun, [facility] [address] [id number] [address] [place] [address], [place] [address] May, [facility] [address] [id number] [address] [place] [address], [place] [address] May, [facility] [address] [id number] [address] [place] [address], [place] [address] Apr, [facility] [address] [id number] [address] [place] [address], [place] [address] Apr, [facility] [address] [id number] [address] [place] [address], [place] [address] Apr, [facility] [address] [id number] [address] [place] [address], [place] [address] Apr, [facility] [address] [id number] [address] [place] [address], [place] [address] Apr, [facility] [address] [id number] [address] [place] [address], [place] [address] Apr, [facility] [address] [id number] [address] [place] [address], [place] [address] Apr, [facility] [address] [id number] [address] [place] [address], [place] [address] Apr, [facility] [address] [id number] [address] [place] [address], [place] [address] 31 Feb, 2013 [facility] [address] [id number] [address] [place] [address], [place] [address] Feb, [facility] [address] [id number] [address] [place] [address], [place] [address] Jan, [facility] [address] [id number] [address] [place] [address], [place] [address] Jan, [facility] [address] [id number] [address] [place] [address], [place] [address] Dec, [facility] [address] [id number] [address] [place] [address], [place] [address] Dec, [facility] [address] [id number] [address] [place] [address], [place] [address] Dec, [facility] [address] [id number] [address] [place] [address], [place] [address] Nov, [facility] [address] [id number] [address] [place] [address], [place] [address] Nov, [facility] [address] [id number] [address] [place] [address], [place] [address] Nov, [facility] [address] [id number] [address] [place] [address], [place] [address] Oct, [facility] [address] [id number] [address] [place] [address], [place] [address] Oct, [facility] [address] [id number] [address] [place] [address], [place] [address] Oct, [facility] [address] [id number] [address] [place] [address], [place] [address] September, [facility] [address] [id number] [address] [place] [address], [place] [address] September, [facility] [address] [id number] [address] [place] [address], [place] [address] September, [facility] [address] [id number] [address] [place] [address], [place] [address] Aug, [facility] [address] [id number] [address] [place] [address], [place] [address] 20 Aug, 2011 [facility] [address] [id number] [address] [place] [address], [place] [address] 19 Aug, 2011 [facility] [address] [id number] [address] [place] [address], [place] [address] 16 Aug, 2011 [facility] [address] [id number] [address] [place] [address], [place] [address] Jul, [facility] [address] [id number] [address] [place] [address], [place] [address] 21 Jun, 2011 [facility] [address] [id number] [address] [place] [address], [place] [address] 14 Jun, 2011 [facility] [address] [id number] [address] [place] [address], [place] [address] 13 Jun, 2011 [facility] [address] [id number] [address] [place] [address], [place] [address] 07 Jun, 2011 [facility] [address] [id number] [address] [place] [address], [place] [address] 03 Jun, 2011 [facility] [address] [id number] [address] [place] [address], [place] [address] May, [facility] [address] [id number] [address] [place] [address], [place] [address] May, [facility] [address] [id number] [address] [place] [address], [place] [address] May, [facility] [address] [id number] [address] [place] [address], [place] [address] 04 May, 2011 [facility] [address] [id number] [address] [place] [address], [place] [address] 20 Apr, 2011 [facility] [address] [id number] [address] [place] [address], [place] [address] 13 Apr, 2011 [facility] [address] [id number] [address] [place] [address] [address] 05 Apr, 2011 [facility] [address] [id number] [address] [place] [address], [place] [address] Mar, [facility] [address] [id number] [address] [place] [address], [place] [address] Mar, [facility] [address] [id number] [address] [place] [address], [place] [address] Mar, [facility] [address] [id number] [address] [place] [address], [place] [address] Feb, [facility] [address] [id number] [address] [place] [address], [place] [address] Feb, [facility] [address] [id number] [address] [place] [address], [place] [address] Feb, [facility] [address] [id number] [address] [place] [address], [place] [address] Nov, [facility] [address] [id number] [address] [place] [address], [place] [address] September, [facility] [address] [id number] [address] [place] [address], [place] [address] Aug, [facility] [address] [id number] [address] [place] [address], [place] [address] 14 Jul, 2010 [facility] [address] [id number] [address] [place] [address], [place] [address] May, [facility] [address] [id number] [address] [place] [address], [place] [address] 31 Apr, 2010 [facility] [address] [id number] [address] [place] [address], [place] [address] 30 Apr, 2010 [facility] [address] [id number] [address] [place] [address], [place] [address] 13 Apr, 2010 [facility] [address] [id number] [address] [place] [address], [place] [address] 10 Apr, 2010 [facility] [address] [id number] [facility] [place] [address] Apr, IMMUNIZATIONS No Known Immunizations SOCIAL HISTORY [...]
--- OUTSIDE RECORDS SUMMARY | 2019-07-17 11:12 | XMS REPORT ---
Author Author Sujey WILLS Organization [facility] Address [address] [place] [address] Care Team Providers Care Medical Secretary Name Role Phone JOHANNGISELEYVON Unavailable PROBLEMS Type Condition ICD9-CM Code [id number] Code Onset Dates Condition S tatus SNOMED Code Problem Back pain M54.9 Active 910538665 Problem Diabetes E11.9 Active 80515280 Problem GERD (gastroesophageal reflux disease) K21.9 Active 836857885 Problem Hypertension I10 Active 5966482 3 Problem Anxiety disorder, unspecified F41.9 Active 359814788 Problem Other bipolar disorder F31.89 Active 75346957 Problem Fibromyalgia M79.7 Active 1169363 7 Problem Panic disorder with agoraphobia F40.01 Active 22878486 Problem Panlobular emphysema J43.1 Active 8487929 Problem Chronic obstructive pulmonary disease, unspecified J44.9 Active 06240475 Problem Akathisia G25.71 Active 998917913 Problem Lumbago with sciatica, left side M54.42 Active 437327529 Problem Migraine without aura and without status migrain osus, not intractable G43.009 Active 997424688 Problem Fibrocystic disease of right breast N60.11 Active 20958408 Problem Fibrocystic disease of left breast N60.12 Active 59685909 Problem Slow transit constipation K59.01 Acti ve 06429369 Problem Essential tremor G25.0 Active 609 188346 Problem Bipolar 1 disorder, depressed, moderate F31.32 Active 67937691 Problem Other chronic pain G89.29 Active 8 7354238 Problem Lumbago with sciatica, right side M54.41 Active 738766125 Problem Irritable bowel syndrome with constipation K58.1 Active 751927764 Problem Arthritis M19.90 Active 6525802 Problem Schizoaffective disorder, bipolar type F25.0 Active 58673491 Problem Irritable bowel syndrome with both constipation and diarrh ea K58.2 Active 32665407 Problem Attention deficit hyperactiv ity disorder (ADHD), predominantly inattentive type F90.0 Active 51010358 Problem Bipolar I disorder with depression F31.9 Active 68396981 Problem Chronic post-traumatic stress disorder (PTSD) F43. 12 Active 441737404 Problem Bipolar affective disorder, remission status unspecified F31.9 Active 40854122 Problem Mild persistent asthma without complication J45.30 Active 008312809 Problem Moderate persistent asthma without complication J4 5.40 Active 236124680 Problem Acute non-recurrent maxillary sinusitis J01.00 Active 57311942 Problem Bipolar 1 disorder, depressed, partial remission F 31.75 Active 73941543 ALLERGIES No Information ENCOUNTERS Encounter Location Date Diagnosis [facility] [address] [id number] [address] [place] [phone] Dec, [facility] [address] [id number] [address] [place] [address] Nov, [facility] [address] [facility] [id number] [address] [place] [phone] Nov, Cerebrovascular accident (CV A) due to occlusion of right cerebellar artery I63.541 and Acute non-recurrent maxillary sinusitis J01.00 [facility] [address] [id number] [address] [place] [phone] Nov, [facility] [address] [id number] [address] [place] [address] Nov, [facility] [address] [id number] [address] [place] [phone] Nov, [facility] [address] [id number] [address] [place] [address] Nov, [facility] [address] [id number] [address] [place] [address] Nov, [facility] [address] [id number] [address] [place] [phone] Nov, [facility] [address] [id number] [address] [place] [phone] Nov, [facility] [address] [id number] [address] [place] [phone] Nov, [facility] [address] [facility] [id number] [address] [place] [phone] Nov, Mild persistent asthma witho ut complication J45.30 and Irritable bowel syndrome with both constipation and diarrhea K58.2 [facility] [address] [facility] [id number] [address] [place] [phone] Nov, [facility] [address] [facility] [id number] [address] [place] [phone] Oct, [facility] [address] [facility] [id number] [address] [place] [phone] Oct, [facility] [address] [facility] [id number] [address] [place] [address] Oct, Type 2 diabetes mellitus wit h diabetic neuropathy, unspecified 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 manager insulin use E11.40 ; Diabetes E11.9 ; Slow transit constipation K59.01 ; Edema of both legs R60.0 and Dysfunction of right eustachian tube H69.81 [facility] [address] [facility] [id number] [address] [place] [phone] Oct, Frequent headaches R51 [facility] [address] [facility] [id number] [address] [place] [phone] Oct, [facility] [address] [place] [id number] [address] [place] [phone] Oct, [facility] [address] [facility] [id number] [address] [place] [phone] Oct, [facility] [address] [facility] [id number] [address] [place] [phone] Oct, [facility] [address] [facility] [id number] [address] [place] [phone] Oct, [facility] [address] [facility] [id number] [address] [place] [address] Oct, [facility] [address] [facility] [id number] [address] [place] [phone] Oct, [facility] [address] [facility] [id number] [address] [place] [phone] Oct, [facility] [address] [facility] [id number] [address] [place] [phone] September, Frequent headaches R51 [facility] [address] [facility] [id number] [address] [place] [phone] September, Bilateral otitis media with effusion H65.93 ; Dizziness R42 and Essential tremor G25.0 [facility] [address] [facility] [id number] [address] [place] [address] September, Chronic obstructive pulmonar y disease, unspecified COPD type J44.9 [facility] [address] [place] [id number] [address] [place] [phone] September, Chronic obstructive pulmonar y disease, unspecified COPD type J44.9 [facility] [address] [facility] [id number] [address] [place] [address] September, Migraine without aura and wi thout status migrainosus, not intractable G43.009 [facility] [address] [facility] [id number] [address] [place] [phone] September, [facility] [address] [facility] [id number] [address] [place] [phone] September, [facility] [address] [facility] [id number] [address] [place] [address] September, [facility] [address] [facility] [id number] [address] [place] [phone] September, Frequent headaches R51 [facility] [address] [facility] [id number] [address] [place] [address] Aug, [facility] [address] [facility] [id number] [address] [place] [address] Aug, Breast mass, right N63.10 [facility] [address] [id number] [address] [place] [phone] Aug, Breast lump N63.0 [facility] [address] [facility] [id number] [address] [place] [phone] Aug, [facility] [address] [facility] [id number] [address] [place] [phone] Aug, Bipolar affective disorder, remission status unspecified F31.9 and Diabetes E11.9 [facility] [address] [facility] [id number] [address] [place] [address] Aug, Diabetes E11.9 ; Schizoaffec tive disorder, bipolar type F25.0 ; Pharyngitis due to other organism J02.8 ; Panlobular emphysema J43.1 and Irritable bowel syndrome with both constipation and diarrhea K58.2 [place] [address] [facility] [id number] [address] [place] [phone] Aug, Abnormal mammogram R92.8 [place] [address] [facility] [id number] [address] [place] [id number] Aug, [place] [address] [facility] [id number] [address] [place] [address] Aug, Bipolar 1 disorder, depresse d, moderate F31.32 ; Panic disorder with agoraphobia F40.01 and Chronic post-traumatic stress disorder (PTSD) F43.12 [place] [address] [facility] [id number] [address] [place] [phone] Aug, [place] [address] [facility] [id number] [address] [place] [phone] Aug, [facility] [address] [facility] [id number] [address] [place] [phone] Aug, [facility] [address] [facility] [id number] [address] [place] [phone] Jul, [facility] [address] [facility] [id number] [address] [place] [id number] 20 Jul, 2017 Mild persistent asthma witho ut complication J45.30 [facility] [address] [id number] [address] [place] [phone] 19 Jul, 2017 Mild persistent asthma witho ut complication J45.30 [facility] [address] [id number] [address] [place] [phone] 15 Jul, 2017 Bipolar affective disorder, remission status unspecified F31.9 ; Diabetes E11.9 and Irritable bowel syndrome with constipation K58.1 [facility] [address] [id number] [address] [place] [id number] 13 Jul, 2017 [facility] [address] [id number] [address] [place] [address] Jul, [facility] [address] [id number] [address] [place] [phone] Jul, Frequent headaches R51 [facility] [address] [id number] [address] [place] [phone] Jul, [facility] [address] [id number] [address] [place] [phone] Jul, [facility] [address] [id number] [address] [place] [address] Jul, [facility] [address] [id number] [address] [place] [address] Jul, Frequent headaches R51 ; Fib rocystic disease of left breast N60.12 ; Fibrocystic disease of right breast N60.11 and Diabetes E11.9 [facility] [address] [id number] [address] [place] [phone] Jul, [facility] [address] [id number] [address] [place] [address] Jul, [facility] [address] [facility] [id number] [address] [place] [phone] Jun, Exudative tonsillitis J03.90 [facility] [address] [facility] [id number] [address] [place] [phone] 20 Jun, 2017 [facility] [address] [facility] [id number] [address] [place] [phone] 19 Jun, 2017 [facility] [address] [facility] [id number] [address] [place] [id number] 15 Jun, 2017 Mild persistent asthma witho ut complication J45.30 ; Chronic obstructive pulmonary disease, unspecified COPD type J44.9 and Exudative tonsillitis J03.90 [facility] [address] [facility] [id number] [address] [place] [phone] 13 Jun, 2017 Encounter for immunization Z 23 [facility] [address] [facility] [id number] [place] [phone] 12 Jun, 2017 [facility] [address] [address] Jun, [facility] [address] [phone] 09 Jun, 2017 [facility] [place] [facility] [address] [facility] [id number] [address] [place] [id number] 06 Jun, 2017 Tonsillitis J03.90 [facility] [address] [facility] [id number] [address] [place] [phone] 05 Jun, 2017 [facility] [address] [place] [id number] [address] [place] [phone] 03 Jun, 2017 Acute non-recurrent maxillar y sinusitis J01.00 [facility] [address] [facility] [id number] [address] [place] [phone] Jun, [facility] [address] [place] [id number] [address] [place] [phone] May, [facility] [address] [place] [id number] [address] [place] [phone] May, [facility] [address] [address] May, GERD (gastroesophageal reflu x disease) K21.9 [facility] [address] [facility] [id number] [address] [place] [phone] May, Migraine without aura and wi thout status migrainosus, not intractable G43.009 [place] [address] [facility] [id number] [address] [place] [phone] May, [facility] [address] [facility] [id number] [address] [place] [phone] May, [facility] [address] [facility] [id number] [address] [place] [address] May, Panlobular emphysema J43.1 a nd Acute non-recurrent maxillary sinusitis J01.00 [place] [address] [place] [id number] [address] [place] [address] May, Bipolar 1 disorder, depresse d, moderate F31.32 ; Panic disorder with agoraphobia F40.01 and Akathisia G25.71 [facility] [address] [facility] [id number] [address] [place] [phone] Apr, [place] [id number] [place] [address] Apr, [place] [address] [place] [id number] [address] [place] [phone] Apr, Acute non-recurrent maxillar y sinusitis J01.00 [facility] [address] [facility] [id number] [address] [place] [phone] Apr, Panlobular emphysema J43.1 [place] [address] [place] [id number] [address] [place] [id number] 04 Apr, 2017 [facility] [address] [facility] [id number] [address] [place] [phone] 04 Apr, 2017 Exudative tonsillitis J03.90 and Sore throat J02.9 [place] [id number] [place] [address] 17 Mar, 2017 [facility] [address] [id number] 15 Mar, 2017 Acute non-recurrent maxillar y sinusitis J01.00 [facility] [address] [place] [id number] [place] [address] Mar, [facility] [address] [address] Mar, Panlobular emphysema J43.1 a nd Diabetes E11.9 [place] [address] [address] Mar, [facility] [place] [facility] [address] [place] [id number] [place] [address] 24 Feb, 2017 Wheezing R06.2 and Acute rec urrent pansinusitis J01.41 [place] [address] [address] Feb, [facility] [address] [address] Feb, Acute non-recurrent maxillar y sinusitis J01.00 [place] [address] [address] Feb, Chronic obstructive pulmonar y disease, unspecified J44.9 [place] [address] [address] Feb, Hypoxemia R09.02 and Chronic obstructive pulmonary disease, unspecified J44.9 [place] [address] [address] 28 Jan, 2017 Bipolar 1 disorder, depresse d, moderate F31.32 ; Panic disorder with agoraphobia F40.01 ; Chronic post-traumatic stress disorder (PTSD) F43.12 ; Diabetes E11.9 and Moderate persistent asthma without complication J45.40 [place] [address] [place] [id number] [address] [place] [address] 22 Jan, 2017 [facility] [address] [id number] [address] [place] [phone] 19 Jan, 2017 Acute non-recurrent maxillar y sinusitis J01.00 [facility] [address] [id number] [address] [place] [id number] 18 Jan, 2017 [facility] [address] [id number] [address] [place] [phone] 18 Jan, 2017 [facility] [address] [id number] [address] [place] [phone] 12 Jan, 2017 Moderate persistent asthma w ithout complication J45.40 and Hypoxemia R09.02 [facility] [address] [id number] [address] [place] [phone] Jan, Moderate persistent asthma w ithout complication J45.40 and Hypoxemia R09.02 [facility] [address] [id number] [address] [place] [phone] Jan, [facility] [address] [id number] [address] [place] [address] Dec, Acute non-recurrent maxillar y sinusitis J01.00 [facility] [address] [id number] [address] [place] [id number] Dec, Chronic obstructive pulmonar y disease, unspecified J44.9 [facility] [address] [id number] [address] [place] [address] Dec, [facility] [address] [id number] [address] [place] [address] Dec, Mild persistent asthma witho ut complication J45.30 and Other chronic pain G89.29 [facility] [address] [id number] [address] [place] [address] Nov, [facility] [address] [id number] [address] [place] [address] Nov, Acute non-recurrent maxillar y sinusitis J01.00 [facility] [address] [id number] [address] [place] [address] Nov, [facility] [address] [id number] [address] [place] [phone] Nov, [facility] [address] [id number] [address] [place] [id number] Oct, [facility] [address] [id number] [address] [place] [phone] Oct, Bipolar 1 disorder, depresse d, partial remission F31.75 ; Panic disorder with agoraphobia F40.01 and Chronic post-traumatic stress disorder (PTSD) F43.12 [facility] [address] [id number] [address] [place] [phone] Oct, Acute non-recurrent maxillar y sinusitis J01.00 [facility] [address] [id number] [address] [place] [id number] Oct, [facility] [address] [id number] [address] [place] [address] Oct, Diabetes E11.9 [facility] [address] [id number] [address] [place] [address] September, Diabetes E11.9 [facility] [address] [id number] [address] [place] [address] September, Diabetes E11.9 and Sinus tac hycardia R00.0 [facility] [address] [id number] [address] [place] [address] September, [facility] [address] [id number] [address] [place] [phone] September, [facility] [address] [id number] [address] [place] [address] Aug, Diabetes E11.9 and Lumbago w ith sciatica, right side M54.41 [facility] [address] [facility] [id number] [address] [place] [phone] Aug, [facility] [address] [facility] [id number] [address] [place] [address] Jul, Bipolar 1 disorder, depresse d, moderate F31.32 ; Panic disorder with agoraphobia F40.01 and Chronic post-traumatic stress disorder (PTSD) F43.12 [facility] [address] [facility] [id number] [address] [place] [address] Jul, Sore throat J02.9 [facility] [address] [facility] [id number] [address] [place] [id number] Jul, [facility] [address] [facility] [id number] [address] [place] [phone] Jul, [facility] [address] [place] [id number] [address] [place] [phone] Jul, [facility] [address] [facility] [id number] [address] [place] [id number] Jul, [facility] [address] [facility] [id number] [address] [place] [address] Jul, Sore throat J02.9 and Pharyn gitis, unspecified etiology J02.9 [facility] [address] [facility] [id number] [address] [place] [phone] Jun, [facility] [address] [facility] [id number] [address] [place] [id number] Jun, Diabetes E11.9 [facility] [address] [facility] [id number] [address] [place] [phone] Jun, [facility] [address] [facility] [id number] [address] [place] [id number] Jun, [facility] [address] [facility] [id number] [address] [place] [phone] Jun, [facility] [address] [facility] [id number] [address] [place] [id number] Jun, [facility] [address] [id number] [address] [place] [id number] Jun, [facility] [address] [facility] [id number] [address] [place] [id number] Jun, [facility] [address] [facility] [id number] [address] [place] [phone] Jun, [facility] [address] [facility] [id number] [address] [place] [id number] Jun, [facility] [address] [facility] [id number] [address] [place] [address] [address] May, Diabetes E11.9 ; Other chron ic pain G89.29 ; Acute recurrent maxillary sinusitis J01.01 ; Bipolar I disorder with depression F31.9 and Anxiety disorder, unspecified F41.9 [facility] [address] [facility] [id number] [address] [place] [address] May, [facility] [address] [facility] [id number] [address] [place] [address] May, Diabetes E11.9 ; Bipolar I d isorder with depression F31.9 ; Anxiety disorder, unspecified F41.9 ; Other chronic pain G89.29 and Acute recurrent maxillary sinusitis J01.01 [facility] [address] [facility] [id number] [address] [place] [address] May, [facility] [address] [facility] [id number] [address] [place] [address] May, Attention deficit hyperactiv ity disorder (ADHD), predominantly inattentive type F90.0 [facility] [address] [facility] [id number] [address] [place] [address] May, [facility] [address] [facility] [id number] [address] [place] [address] Apr, Attention deficit hyperactiv ity disorder (ADHD), predominantly inattentive type F90.0 and Non-seasonal allergic rhinitis due to other allergic trigger J30.89 [place] [address] [facility] [id number] [address] [place] [address] Apr, Bipolar 1 disorder, depresse d, moderate F31.32 ; Panic disorder with agoraphobia F40.01 and Chronic post-traumatic stress disorder (PTSD) F43.12 [place] [address] [facility] [id number] [address] [place] [address] Apr, Dental examination Z01.20 [place] [address] [id number] [address] [place] [address] Mar, [place] [address] [facility] [id number] [address] [place] [address] Mar, [place] [address] [facility] [id number] [address] [place] [address] Mar, Bipolar I disorder with depr ession F31.9 and Anxiety disorder, unspecified F41.9 [place] [address] [facility] [id number] [address] [place] [address] 08 Mar, 2016 Panic disorder with agorapho syd F40.01 ; Bipolar 1 disorder, depressed, moderate F31.32 and Chronic post-traumatic stress disorder (PTSD) F43.12 [place] [address] [facility] [id number] [address] [place] [address] 04 Mar, 2016 [place] [address] [facility] [id number] [address] [place] [address] Mar, Dental caries K02.9 [place] [address] [facility] [id number] [address] [place] [address] Feb, Lumbago with sciatica, left side M54.42 ; Lumbago with sciatica, right side M54.41 and Other chronic pain G89.29 [place] [address] [facility] [id number] [address] [place] [address] Feb, [place] [address] [facility] [id number] [address] [place] [address] 14 Feb, 2016 [facility] [address] [facility] [id number] [address] [place] [phone] 13 Feb, 2016 Bipolar I disorder with depr ession F31.9 ; PTSD (post-traumatic stress disorder) F43.10 and Mood disorder F39 [facility] [address] [facility] [id number] [address] [place] [address] 13 Feb, 2016 [facility] [address] [id number] [address] [place] [address] 11 Feb, 2016 Dental examination Z01.20 [facility] [address] [facility] [id number] [address] [place] [address] 07 Feb, 2016 [facility] [place] [facility] [address] [facility] [id number] [address] [place] [phone] 03 Feb, 2016 Acute bronchitis, unspecifie d organism J20.9 [facility] [address] [facility] [id number] [address] [place] [phone] 26 Jan, 2016 Mood disorder F39 ; Migraine without aura and without status migrainosus, not intractable G43.009 ; Irritable bowel syndrome, unspecified type K58.9 ; Diabetes E11.9 and Encounter for immunization Z23 [facility] [address] [facility] [id number] [address] [place] [id number] 15 Jan, 2016 [facility] [address] [facility] [id number] [address] [place] [address] Jan, [facility] [address] [facility] [id number] [address] [place] [phone] Jan, [facility] [address] [id number] [address] [place] [phone] Jan, [facility] [address] [facility] [id number] [address] [place] [address] Jan, [facility] [address] [facility] [id number] [address] [place] [address] Dec, Bipolar I disorder with depr ession F31.9 ; PTSD (post-traumatic stress disorder) F43.10 and Panic disorder with agoraphobia F40.01 [facility] [address] [place] [id number] [address] [place] [phone] Dec, Chronic obstructive pulmonar y disease, unspecified COPD type J44.9 ; Tremor R25.1 and Anxiety F41.9 [facility] [address] [id number] [address] [place] [address] Dec, [facility] [address] [facility] [id number] [address] [place] [address] Nov, Tremors of nervous system R2 5.1 and Cramping of feet R25.2 [facility] [address] [place] [id number] [address] [place] [address] Nov, [facility] [address] [place] [id number] [address] [place] [address] Nov, [facility] [address] [place] [id number] [address] [place] [address] Oct, Chronic obstructive pulmonar y disease, unspecified J44.9 [facility] [address] [place] [id number] [address] [place] [address] Oct, [facility] [address] [place] [id number] [address] [place] [address] Oct, Tremor R25.1 [facility] [address] [facility] [id number] [address] [place] [address] Oct, Bipolar I disorder with depr ession F31.9 ; Diabetes E11.9 ; PTSD (post-traumatic stress disorder) F43.10 and Panic disorder with agoraphobia F40.01 [facility] [address] [facility] [id number] [address] [place] [address] Oct, Mood disorder F39 [facility] [address] [place] [id number] [address] [place] [address] September, [facility] [address] [place] [id number] [address] [place] [address] September, Diabetes E11.9 ; Bipolar I d isorder with depression F31.9 ; PTSD (post-traumatic stress disorder) F43.10 and Panic disorder with agoraphobia F40.01 [facility] [address] [id number] [address] [place] [address] September, Mood disorder F39 ; Schizoaf fective disorder, unspecified type F25.9 ; Arthritis M19.90 ; Tremor R25.1 ; Acute non-recurrent frontal sinusitis J01.10 and Blood in stool K92.1 [facility] [address] [id number] [address] [place] [address] September, [facility] [address] [id number] [address] [place] [address] September, Chronic obstructive pulmonar y disease, unspecified J44.9 [place] [address] [facility] [id number] [address] [place] [address] September, Diabetes E11.9 [facility] [address] [facility] [id number] [address] [place] [address] Aug, Other bipolar disorder F31.8 9 and Anxiety disorder, unspecified F41.9 [place] [address] [id number] [address] [place] [address] Aug, [facility] [address] [id number] [address] [place] [address] Aug, Diabetes E11.9 [facility] [address] [id number] [address] [place] [id number] 18 Aug, 2015 [place] [address] [facility] [id number] [address] [place] [address] 14 Aug, 2015 Diabetes E11.9 ; Fatigue R53 .83 and Dizziness R42 [facility] [address] [facility] [id number] [address] [place] [address] Aug, Other bipolar disorder F31.8 9 [place] [address] [id number] [address] [place] [address] Aug, Generalized anxiety disorder F41.1 [facility] [address] [id number] [address] [place] [address] Aug, Other bipolar disorder F31.8 9 and Anxiety disorder, unspecified F41.9 [facility] [address] [id number] [address] [place] [address] Aug, [facility] [address] [id number] [address] [place] [address] Jul, [facility] [address] [id number] [address] [place] [address] Jul, [facility] [address] [id number] [address] [place] [address] Jul, Bronchitis J40 [facility] [address] [id number] [address] [place] [address] Jul, Anxiety disorder F41.9 [facility] [address] [id number] [address] [place] [address] Jul, Other bipolar disorder F31.8 9 and Anxiety disorder, unspecified F41.9 [facility] [address] [id number] [address] [place] [address] Jul, Other bipolar disorder F31.8 9 and Fibromyalgia M79.7 [facility] [address] [id number] [address] [place] [address] Jul, [facility] [address] [id number] [address] [place] [address] Jul, [facility] [address] [id number] [address] [place] [address] Jul, [facility] [address] [id number] [address] [place] [address] Jul, Other bipolar disorder F31.8 9 and Anxiety disorder, unspecified F41.9 [facility] [address] [facility] [id number] [address] [place] [address] Jun, GERD (gastroesophageal reflu x disease) K21.9 [facility] [address] [facility] [id number] [address] [place] [address] Jun, [facility] [address] [place] [id number] [place] [address] May, [facility] [address] [address] May, Diabetes E11.9 ; Back pain M 54.9 ; GERD (gastroesophageal reflux disease) K21.9 ; Hypertension I10 and Peripheral neuropathy G62.9 [facility] [address] [place] [id number] [place] [address] Mar, [facility] [address] [address] Mar, [facility] [address] [address] Mar, Acute sinusitis J01.90 and O titis media, left H66.92 [facility] [address] [place] [id number] [address] [place] [address] Feb, [facility] [address] [address] Feb, [facility] [address] [address] 15 Feb, 2015 [facility] [address] [place] [id number] [address] [place] [address] 13 Feb, 2015 [facility] [address] [address] 29 Jan, 2015 [facility] [address] [place] [id number] [address] [place] [address] 24 Jan, 2015 Diabetes 250.00 and Back higinio n 724.5 [facility] [address] [place] [id number] [place] [address] Jan, [facility] [address] [place] [id number] [address] [place] [address] Dec, Diabetes 250.00 ; Benign ess ential hypertension 401.1 and Allergic rhinitis 477.9 [facility] [address] [place] [id number] [address] [place] [address] Dec, [facility] [address] [place] [id number] [address] [place] [address] Dec, [facility] [address] [place] [id number] [place] [address] Dec, Psychosis 298.9 [facility] [address] [address] Dec, Medication side effect 995.2 0 and Generalized anxiety disorder 300.02 [facility] [address] [address] Dec, Acquired cognitive dysfuncti on 294.9 [facility] [address] [place] [id number] [address] [place] [address] Dec, [facility] [address] [place] [id number] [address] [place] [address] Dec, Unspecified myalgia and myos itis 729.1 and Generalized anxiety disorder 300.02 [facility] [id number] [place] [address] Nov, [facility] [address] [place] [id number] [address] [place] [address] Nov, [facility] [address] [place] [id number] [address] [place] [address] Nov, [facility] [address] [place] [id number] [address] [place] [address] Nov, Upper respiratory infection 465.9 and Chronic airway obstruction, not elsewhere classified 496 [facility] [address] [place] [id number] [address] [place] [address] Nov, Hyponatremia 276.1 [facility] [address] [id number] [address] [place] [id number] 29 Oct, 2014 [facility] [address] [facility] [id number] [address] [place] [address] Oct, [facility] [address] [id number] [address] [place] [address] Oct, [facility] [address] [id number] [address] [place] [address] Oct, [facility] [address] [id number] [address] [place] [address] Oct, Hyponatremia 276.1 [facility] [address] [facility] [id number] [address] [place] [address] Oct, [facility] [address] [facility] [id number] [address] [place] [address] Oct, [facility] [address] [facility] [id number] [address] [place] [address] Oct, Generalized anxiety disorder 300.02 [facility] [address] [facility] [id number] [address] [place] [address] Oct, Generalized anxiety disorder 300.02 and Diabetes 250.00 [facility] [address] [facility] [id number] [address] [place] [address] Aug, [facility] [address] [facility] [id number] [address] [place] [address] Aug, [facility] [address] [id number] [address] [place] [address] Jul, [facility] [address] [facility] [id number] [address] [place] [address] Jul, [facility] [address] [facility] [id number] [address] [place] [address] Jun, [facility] [place] [facility] [address] [id number] [address] [place] [address], [place] [address] Jun, [facility] [address] [id number] [address] [place] [address], [place] [address] Jun, [facility] [address] [id number] [address] [place] [address], [place] [address] Jun, [facility] [address] [id number] [address] [place] [address], [place] [address] Jun, [facility] [address] [id number] [address] [place] [address], [place] [address] May, [facility] [address] [id number] [address] [place] [address], [place] [address] May, [facility] [address] [id number] [address] [place] [address], [place] [address] Apr, [facility] [address] [id number] [address] [place] [address], [place] [address] Apr, [facility] [address] [id number] [address] [place] [address], [place] [address] Apr, [facility] [address] [id number] [address] [place] [address], [place] [address] Apr, [facility] [address] [id number] [address] [place] [address], [place] [address] 17 Apr, 2013 [facility] [address] [id number] [address] [place] [address], [place] [address] 17 Apr, 2013 [facility] [address] [id number] [address] [place] [address], [place] [address] Apr, [facility] [address] [id number] [address] [place] [address], [place] [address] Apr, [facility] [address] [id number] [address] [place] [address], [place] [address] 31 Feb, 2013 [facility] [address] [id number] [address] [place] [address], [place] [address] Feb, [facility] [address] [id number] [address] [place] [address], [place] [address] Jan, [facility] [address] [id number] [address] [place] [address], [place] [address] Jan, [facility] [address] [id number] [address] [place] [address], [place] [address] Dec, [facility] [address] [id number] [address] [place] [address], [place] [address] Dec, [facility] [address] [id number] [address] [place] [address], [place] [address] Dec, [facility] [address] [id number] [address] [place] [address], [place] [address] Nov, [facility] [address] [id number] [address] [place] [address], [place] [address] Nov, [facility] [address] [id number] [address] [place] [address], [place] [address] Nov, [facility] [address] [id number] [address] [place] [address], [place] [address] Oct, [facility] [address] [id number] [address] [place] [address], [place] [address] Oct, [facility] [address] [id number] [address] [place] [address], [place] [address] Oct, [facility] [address] [id number] [address] [place] [address], [place] [address] September, [facility] [address] [id number] [address] [place] [address], [place] [address] September, [facility] [address] [id number] [address] [place] [address], [place] [address] September, [facility] [address] [id number] [address] [place] [address], [place] [address] Aug, [facility] [place] [facility] [address] [id number] [address] [place] [address], [place] [address] 20 Aug, 2011 [facility] [address] [id number] [address] [place] [address], [place] [address] 19 Aug, 2011 [facility] [address] [id number] [address] [place] [address], [place] [address] 16 Aug, 2011 [facility] [address] [id number] [address] [place] [address], [place] [address] Jul, [facility] [address] [id number] [address] [place] [address], [place] [address] Jun, [facility] [address] [id number] [address] [place] [address], [place] [address] 14 Jun, 2011 [facility] [address] [id number] [address] [place] [address], [place] [address] 13 Jun, 2011 [facility] [address] [id number] [address] [place] [address], [place] [address] 07 Jun, 2011 [facility] [address] [id number] [address] [place] [address], [place] [address] 03 Jun, 2011 [facility] [address] [id number] [address] [place] [address], [place] [address] May, [facility] [address] [id number] [address] [place] [address], [place] [address] May, [facility] [address] [id number] [address] [place] [address], [place] [address] May, [facility] [address] [id number] [address] [place] [address], [place] [address] May, [facility] [address] [id number] [address] [place] [address], [place] [address] Apr, [facility] [address] [id number] [address] [place] [address], [place] [address] 13 Apr, 2011 [facility] [address] [id number] [address] [place] [address], [place] [address] 05 Apr, 2011 [facility] [address] [id number] [address] [place] [address], [place] [address] Mar, [facility] [address] [id number] [address] [place] [address], [place] [address] Mar, [facility] [address] [id number] [address] [place] [address], [place] [address] Mar, [facility] [address] [id number] [address] [place] [address], [place] [address] Feb, [facility] [address] [id number] [address] [place] [address], [place] [address] Feb, [facility] [address] [id number] [address] [place] [address], [place] [address] Feb, [facility] [address] [id number] [address] [place] [address], [place] [address] Nov, [facility] [address] [id number] [address] [place] [address], [place] [address] September, [facility] [address] [id number] [address] [place] [address], [place] [address] Aug, [facility] [address] [id number] [address] [place] [address], [place] [address] Jul, [facility] [address] [id number] [address] [place] [address], [place] [address] May, [facility] [address] [id number] [address] [place] [address], [place] [address] 31 Apr, 2010 [facility] [address] [id number] [address] [place] [address], [place] [address] 30 Apr, 2010 [facility] [address] [id number] [address] [place] [address], [place] [address] 13 Apr, 2010 [facility] [address] [id number] [address] [place] [address], [place] [address] 10 Apr, 2010 [facility] [address] [id number] [address] [place] [id number] Apr, IMMUNIZATIONS No Known Immunizations SOCIAL HISTORY Never Assessed REASON FOR VISIT adderall 08/17/2017 PLAN OF CARE VITAL SIGNS MEDICATIONS Medication Instructions Dosage Frequency Start Date End Date Duration S samantha Adderall XR 20 mg Orally Once a day for depression 1 capsule in the morning Aug, 28 days Active RESULTS No Results PROCEDURES [...]
--- OUTSIDE RECORDS SUMMARY | 2019-07-17 11:12 | XMS REPORT ---
Author Author Sujey GANDHI Organization [facility] Address [address] [place] [address] Care Team Providers Care Forging Die Sinker Name Role Phone WHIT GANDHI Unavailable PROBLEMS Type Condition ICD9-CM Code [id number] Code Onset Dates Condition S tatus SNOMED Code Problem Back pain M54.9 Active 871237022 Problem Diabetes E11.9 Active 78195463 Problem GERD (gastroesophageal reflux disease) K21.9 Active 241489554 Problem Hypertension I10 Active 4788798 3 Problem Anxiety disorder, unspecified F41.9 Active 549793402 Problem Other bipolar disorder F31.89 Active 22454431 Problem Fibromyalgia M79.7 Active 8192464 7 Problem Panic disorder with agoraphobia F40.01 Active 54620231 Problem Panlobular emphysema J43.1 Active 4620511 Problem Chronic obstructive pulmonary disease, unspecified J44.9 Active 57412533 Problem Akathisia G25.71 Active 903006388 Problem Lumbago with sciatica, left side M54.42 Active 661602814 Problem Migraine without aura and without status migrain osus, not intractable G43.009 Active 398116709 Problem Fibrocystic disease of right breast N60.11 Active 88660518 Problem Fibrocystic disease of left breast N60.12 Active 48326631 Problem Slow transit constipation K59.01 Acti ve 71830153 Problem Essential tremor G25.0 Active 609 615679 Problem Bipolar 1 disorder, depressed, moderate F31.32 Active 37916945 Problem Other chronic pain G89.29 Active 8 2508865 Problem Lumbago with sciatica, right side M54.41 Active 651653871 Problem Irritable bowel syndrome with constipation K58.1 Active 267791126 Problem Arthritis M19.90 Active 4462734 Problem Schizoaffective disorder, bipolar type F25.0 Active 89569380 Problem Irritable bowel syndrome with both constipation and diarrh ea K58.2 Active 56908673 Problem Attention deficit hyperactiv ity disorder (ADHD), predominantly inattentive type F90.0 Active 87355179 Problem Bipolar I disorder with depression F31.9 Active 42924938 Problem Chronic post-traumatic stress disorder (PTSD) F43. 12 Active 488137612 Problem Bipolar affective disorder, remission status unspecified F31.9 Active 53234044 Problem Mild persistent asthma without complication J45.30 Active 413201584 Problem Moderate persistent asthma without complication J4 5.40 Active 956034815 Problem Acute non-recurrent maxillary sinusitis J01.00 Active 47866581 Problem Bipolar 1 disorder, depressed, partial remission F 31.75 Active 54764274 ALLERGIES No Information ENCOUNTERS Encounter Location Date Diagnosis [facility] [address] [id number] [address] [place] [id number] Dec, [facility] [address] [id number] [address] [place] [id number] Nov, [facility] [address] [id number] [address] [place] [id number] Nov, 2018 Cerebrovascular accident (CV A) due to occlusion of right cerebellar artery I63.541 and Acute non-recurrent maxillary sinusitis J01.00 [facility] [address] [id number] [address] [place] [id number] Nov, [facility] [address] [id number] [address] [place] [id number] Nov, [facility] [address] [id number] [address] [place] [phone] Nov, [facility] [address] [id number] [address] [place] [id number] Nov, [facility] [address] [id number] [address] [place] [id number] Nov, [facility] [address] [id number] [address] [place] [phone] Nov, [facility] [address] [id number] [address] [place] [id number] Nov, [facility] [address] [id number] [address] [place] [phone] Nov, [facility] [address] [facility] [id number] [address] [place] [id number] Nov, Mild persistent asthma witho ut complication J45.30 and Irritable bowel syndrome with both constipation and diarrhea K58.2 [facility] [address] [facility] [id number] [address] [place] [id number] Nov, [facility] [address] [id number] [address] [place] [phone] Oct, [facility] [address] [facility] [id number] [address] [place] [id number] Oct, [facility] [address] [facility] [id number] [address] [place] [id number] Oct, Type 2 diabetes mellitus wit h diabetic neuropathy, unspecified whether skilled nursing insulin use E11.40 ; Diabetes E11.9 ; Slow transit constipation K59.01 ; Edema of both legs R60.0 and Dysfunction of right eustachian tube H69.81 [facility] [address] [facility] [id number] [address] [place] [id number] Oct, Frequent headaches R51 [facility] [address] [facility] [id number] [address] [place] [phone] Oct, [facility] [address] [facility] [id number] [address] [place] [id number] Oct, [facility] [address] [facility] [id number] [address] [place] [phone] Oct, [facility] [address] [facility] [id number] [address] [place] [id number] 18 Oct, 2017 [facility] [address] [facility] [id number] [address] [place] [phone] Oct, [facility] [address] [facility] [id number] [address] [place] [id number] 14 Oct, 2017 [facility] [address] [place] [id number] [address] [place] [phone] Oct, [facility] [address] [facility] [id number] [address] [place] [id number] Oct, [facility] [address] [facility] [id number] [address] [place] [id number] September, Frequent headaches R51 [facility] [address] [address] [id number] [address] [place] [id number] September, Bilateral otitis media with effusion H65.93 ; Dizziness R42 and Essential tremor G25.0 [facility] [address] [facility] [id number] [address] [place] [phone] September, Chronic obstructive pulmonar y disease, unspecified COPD type J44.9 [facility] [address] [id number] [address] [place] [id number] September, Chronic obstructive pulmonar y disease, unspecified COPD type J44.9 [facility] [address] [id number] [address] [place] [id number] September, Migraine without aura and wi thout status migrainosus, not intractable G43.009 [facility] [address] [id number] [address] [place] [id number] September, [facility] [address] [id number] [address] [place] [phone] September, [facility] [address] [id number] [address] [place] [phone] September, [facility] [address] [facility] [id number] [address] [place] [phone] September, Frequent headaches R51 [facility] [address] [facility] [id number] [address] [place] [id number] Aug, [facility] [address] [id number] [address] [place] [id number] Aug, Breast mass, right N63.10 [facility] [address] [id number] [address] [place] [phone] Aug, Breast lump N63.0 [facility] [address] [facility] [id number] [address] [place] [phone] Aug, [facility] [address] [facility] [id number] [address] [place] [id number] Aug, Bipolar affective disorder, remission status unspecified F31.9 and Diabetes E11.9 [facility] [address] [facility] [id number] [address] [place] [phone] Aug, Diabetes E11.9 ; Schizoaffec tive disorder, bipolar type F25.0 ; Pharyngitis due to other organism J02.8 ; Panlobular emphysema J43.1 and Irritable bowel syndrome with both constipation and diarrhea K58.2 [place] [address] [facility] [id number] [address] [place] [phone] Aug, Abnormal mammogram R92.8 [place] [address] [facility] [id number] [address] [place] [phone] Aug, [place] [address] [facility] [id number] [address] [place] [id number] Aug, Bipolar 1 disorder, depresse d, moderate F31.32 ; Panic disorder with agoraphobia F40.01 and Chronic post-traumatic stress disorder (PTSD) F43.12 [place] [address] [facility] [id number] [address] [place] [id number] Aug, [place] [address] [facility] [id number] [address] [place] [id number] Aug, [place] [address] [facility] [id number] [address] [place] [phone] Aug, [place] [address] [facility] [id number] [address] [place] [phone] Jul, [place] [address] [facility] [id number] [address] [place] [id number] 20 Jul, 2017 Mild persistent asthma witho ut complication J45.30 [facility] [address] [id number] [address] [place] [id number] 19 Jul, 2017 Mild persistent asthma witho ut complication J45.30 [facility] [address] [id number] [address] [place] [id number] 15 Jul, 2017 Bipolar affective disorder, remission status unspecified F31.9 ; Diabetes E11.9 and Irritable bowel syndrome with constipation K58.1 [facility] [address] [id number] [address] [place] [id number] 13 Jul, 2017 [facility] [address] [id number] [address] [place] [id number] 09 Jul, 2017 [facility] [address] [id number] [address] [place] [id number] Jul, Frequent headaches R51 [facility] [address] [id number] [address] [place] [id number] Jul, [facility] [address] [id number] [address] [place] [id number] Jul, [facility] [address] [id number] [address] [place] [id number] Jul, [facility] [address] [id number] [address] [place] [id number] Jul, Frequent headaches R51 ; Fib rocystic disease of left breast N60.12 ; Fibrocystic disease of right breast N60.11 and Diabetes E11.9 [facility] [address] [id number] [address] [place] [id number] Jul, [facility] [address] [id number] [address] [place] [id number] Jul, [facility] [address] [facility] [id number] [address] [place] [id number] Jun, Exudative tonsillitis J03.90 [facility] [address] [facility] [id number] [address] [place] [id number] 20 Jun, 2017 [facility] [address] [facility] [id number] [address] [place] [id number] 19 Jun, 2017 [facility] [address] [facility] [id number] [address] [place] [id number] 15 Jun, 2017 Mild persistent asthma witho ut complication J45.30 ; Chronic obstructive pulmonary disease, unspecified COPD type J44.9 and Exudative tonsillitis J03.90 [facility] [address] [facility] [id number] [address] [place] [id number] 13 Jun, 2017 Encounter for immunization Z 23 [facility] [address] [facility] [id number] [place] [phone] 12 Jun, 2017 [facility] [address] [id number] 12 Jun, 2017 [facility] [address] [place] [id number] [address] [place] [id number] 09 Jun, 2017 [facility] [address] [facility] [id number] [address] [place] [phone] 06 Jun, 2017 Tonsillitis J03.90 [facility] [address] [facility] [id number] [address] [place] [id number] 05 Jun, 2017 [facility] [address] [facility] [id number] [address] [place] [id number] 03 Jun, 2017 Acute non-recurrent maxillar y sinusitis J01.00 [facility] [address] [facility] [id number] [address] [place] [id number] Jun, [facility] [address] [place] [id number] [address] [place] [id number] May, [facility] [address] [facility] [id number] [address] [place] [id number] May, [facility] [address] [place] [id number] [address] [place] [id number] May, GERD (gastroesophageal reflu x disease) K21.9 [facility] [address] [facility] [id number] [address] [place] [id number] May, Migraine without aura and wi thout status migrainosus, not intractable G43.009 [facility] [address] [place] [id number] [address] [place] [id number] May, [facility] [address] [place] [id number] [address] [place] [id number] May, [facility] [address] [id number] May, Panlobular emphysema J43.1 a nd Acute non-recurrent maxillary sinusitis J01.00 [place] [address] [id number] May, Bipolar 1 disorder, depresse d, moderate F31.32 ; Panic disorder with agoraphobia F40.01 and Akathisia G25.71 [facility] [id number] [place] [id number] Apr, [place] [address] [id number] Apr, [place] [address] [id number] Apr, Acute non-recurrent maxillar y sinusitis J01.00 [facility] [address] [place] [id number] [address] [place] [id number] Apr, Panlobular emphysema J43.1 [place] [address] [id number] Apr, [facility] [address] [place] [id number] [address] [place] [id number] 04 Apr, 2017 Exudative tonsillitis J03.90 and Sore throat J02.9 [place] [address] [place] [id number] [place] [address] 17 Mar, 2017 [facility] [address] [facility] [id number] [address] [place] [id number] 15 Mar, 2017 Acute non-recurrent maxillar y sinusitis J01.00 [facility] [address] [facility] [id number] [address] [place] [id number] 13 Mar, 2017 [facility] [address] [facility] [id number] [address] [place] [id number] Mar, Panlobular emphysema J43.1 a nd Diabetes E11.9 [facility] [address] [id number] 06 Mar, 2017 [facility] [address] [facility] [id number] [place] [phone] 24 Feb, 2017 Wheezing R06.2 and Acute rec urrent pansinusitis J01.41 [facility] [address] [place] [id number] [address] [place] [id number] Feb, [facility] [address] [place] [id number] [place] [phone] Feb, Acute non-recurrent maxillar y sinusitis J01.00 [facility] [address] [place] [id number] [place] [id number] 16 Feb, 2017 Chronic obstructive pulmonar y disease, unspecified J44.9 [facility] [address] [place] [id number] [address] [place] [id number] Feb, Hypoxemia R09.02 and Chronic obstructive pulmonary disease, unspecified J44.9 [facility] [address] [id number] 28 Jan, 2017 Bipolar 1 disorder, depresse d, moderate F31.32 ; Panic disorder with agoraphobia F40.01 ; Chronic post-traumatic stress disorder (PTSD) F43.12 ; Diabetes E11.9 and Moderate persistent asthma without complication J45.40 [facility] [address] [place] [address] 22 Jan, 2017 [facility] [address] [id number] [address] [place] [id number] 19 Jan, 2017 Acute non-recurrent maxillar y sinusitis J01.00 [facility] [address] [id number] [address] [place] [id number] 18 Jan, 2017 [facility] [address] [id number] [address] [place] [id number] 18 Jan, 2017 [facility] [address] [id number] [address] [place] [id number] 12 Jan, 2017 Moderate persistent asthma w ithout complication J45.40 and Hypoxemia R09.02 [facility] [address] [id number] [address] [place] [id number] Jan, Moderate persistent asthma w ithout complication J45.40 and Hypoxemia R09.02 [facility] [address] [id number] [address] [place] [id number] Jan, [facility] [address] [id number] [address] [place] [id number] Dec, Acute non-recurrent maxillar y sinusitis J01.00 [facility] [address] [id number] [address] [place] [id number] Dec, Chronic obstructive pulmonar y disease, unspecified J44.9 [facility] [address] [id number] [address] [place] [id number] Dec, [facility] [address] [id number] [address] [place] [id number] Dec, Mild persistent asthma witho ut complication J45.30 and Other chronic pain G89.29 [facility] [address] [id number] [address] [place] [address] Nov, [facility] [address] [id number] [address] [place] [id number] Nov, Acute non-recurrent maxillar y sinusitis J01.00 [facility] [address] [id number] [address] [place] [id number] Nov, [facility] [address] [id number] [address] [place] [id number] Nov, [facility] [address] [id number] [address] [place] [id number] Oct, [facility] [address] [id number] [address] [place] [id number] Oct, Bipolar 1 disorder, depresse d, partial remission F31.75 ; Panic disorder with agoraphobia F40.01 and Chronic post-traumatic stress disorder (PTSD) F43.12 [facility] [address] [id number] [address] [place] [id number] Oct, Acute non-recurrent maxillar y sinusitis J01.00 [facility] [address] [id number] [address] [place] [phone] Oct, [facility] [address] [id number] [address] [place] [id number] Oct, Diabetes E11.9 [facility] [address] [id number] [address] [place] [id number] September, Diabetes E11.9 [facility] [address] [id number] [address] [place] [id number] September, Diabetes E11.9 and Sinus tac hycardia R00.0 [facility] [address] [id number] [address] [place] [id number] September, [facility] [address] [id number] [address] [place] [id number] September, [facility] [address] [id number] [address] [place] [id number] Aug, Diabetes E11.9 and Lumbago w ith sciatica, right side M54.41 [facility] [address] [id number] [address] [place] [id number] Aug, [facility] [address] [facility] [id number] [address] [place] [id number] Jul, Bipolar 1 disorder, depresse d, moderate F31.32 ; Panic disorder with agoraphobia F40.01 and Chronic post-traumatic stress disorder (PTSD) F43.12 [facility] [address] [facility] [id number] [address] [place] [id number] Jul, Sore throat J02.9 [facility] [address] [facility] [id number] [address] [place] [id number] Jul, [facility] [address] [facility] [id number] [address] [place] [id number] Jul, [facility] [address] [place] [id number] [address] [place] [id number] Jul, [facility] [address] [facility] [id number] [address] [place] [id number] Jul, [facility] [address] [facility] [id number] [address] [place] [id number] Jul, Sore throat J02.9 and Pharyn gitis, unspecified etiology J02.9 [facility] [address] [facility] [id number] [address] [place] [id number] Jun, [facility] [address] [facility] [id number] [address] [place] [id number] Jun, Diabetes E11.9 [facility] [address] [facility] [id number] [address] [place] [phone] Jun, [facility] [address] [facility] [id number] [address] [place] [id number] Jun, [facility] [address] [facility] [id number] [address] [place] [id number] Jun, [facility] [address] [place] [id number] [address] [place] [id number] Jun, [facility] [address] [id number] [address] [place] [id number] Jun, [facility] [address] [id number] [address] [place] [id number] Jun, [facility] [address] [facility] [id number] [address] [place] [id number] Jun, [facility] [address] [id number] [address] [place] [phone] Jun, [facility] [address] [id number] [address] [place] [id number] May, Diabetes E11.9 ; Other chron ic pain G89.29 ; Acute recurrent maxillary sinusitis J01.01 ; Bipolar I disorder with depression F31.9 and Anxiety disorder, unspecified F41.9 [facility] [address] [facility] [id number] [address] [place] [id number] May, [facility] [address] [id number] [address] [place] [id number] May, Diabetes E11.9 ; Bipolar I d isorder with depression F31.9 ; Anxiety disorder, unspecified F41.9 ; Other chronic pain G89.29 and Acute recurrent maxillary sinusitis J01.01 [facility] [address] [id number] [address] [place] [id number] May, [facility] [address] [id number] [address] [place] [id number] May, Attention deficit hyperactiv ity disorder (ADHD), predominantly inattentive type F90.0 [facility] [address] [facility] [id number] [address] [place] [id number] May, [facility] [address] [facility] [id number] [address] [place] [phone] Apr, Attention deficit hyperactiv ity disorder (ADHD), predominantly inattentive type F90.0 and Non-seasonal allergic rhinitis due to other allergic trigger J30.89 [place] [id number] [facility] [id number] [address] [place] [phone] 15 Apr, 2016 Bipolar 1 disorder, depresse d, moderate F31.32 ; Panic disorder with agoraphobia F40.01 and Chronic post-traumatic stress disorder (PTSD) F43.12 [place] [address] [facility] [id number] [address] [place] [phone] Apr, Dental examination Z01.20 [place] [address] [id number] [address] [place] [phone] Mar, [place] [address] [facility] [id number] [address] [place] [id number] Mar, [place] [address] [facility] [id number] [address] [place] [id number] Mar, Bipolar I disorder with depr ession F31.9 and Anxiety disorder, unspecified F41.9 [place] [address] [facility] [id number] [address] [place] [id number] 08 Mar, 2016 Panic disorder with agorapho syd F40.01 ; Bipolar 1 disorder, depressed, moderate F31.32 and Chronic post-traumatic stress disorder (PTSD) F43.12 [place] [address] [facility] [id number] [address] [place] [phone] 04 Mar, 2016 [place] [address] [facility] [id number] [address] [place] [phone] Mar, Dental caries K02.9 [place] [address] [id number] [address] [place] [phone] Feb, Lumbago with sciatica, left side M54.42 ; Lumbago with sciatica, right side M54.41 and Other chronic pain G89.29 [place] [address] [facility] [id number] [address] [place] [phone] 17 Feb, 2016 [place] [address] [facility] [id number] [address] [place] [id number] 14 Feb, 2016 [facility] [address] [facility] [id number] [address] [place] [phone] Feb, Bipolar I disorder with depr ession F31.9 ; PTSD (post-traumatic stress disorder) F43.10 and Mood disorder F39 [facility] [address] [id number] [address] [place] [id number] 13 Feb, 2016 [facility] [address] [facility] [id number] [address] [place] [id number] 11 Feb, 2016 Dental examination Z01.20 [facility] [address] [facility] [id number] [address] [place] [phone] 07 Feb, 2016 [facility] [address] [facility] [id number] [address] [place] [phone] 03 Feb, 2016 Acute bronchitis, unspecifie d organism J20.9 [facility] [address] [facility] [id number] [address] [place] [phone] 26 Jan, 2016 Mood disorder F39 ; Migraine without aura and without status migrainosus, not intractable G43.009 ; Irritable bowel syndrome, unspecified type K58.9 ; Diabetes E11.9 and Encounter for immunization Z23 [facility] [address] [facility] [id number] [address] [place] [id number] 15 Jan, 2016 [facility] [address] [facility] [id number] [address] [place] [id number] Jan, [facility] [address] [facility] [id number] [address] [place] [phone] Jan, [facility] [address] [facility] [id number] [address] [place] [id number] Jan, [facility] [address] [facility] [id number] [address] [place] [phone] Jan, [facility] [address] [facility] [id number] [address] [place] [id number] Dec, Bipolar I disorder with depr ession F31.9 ; PTSD (post-traumatic stress disorder) F43.10 and Panic disorder with agoraphobia F40.01 [facility] [address] [facility] [id number] [address] [place] [id number] Dec, Chronic obstructive pulmonar y disease, unspecified COPD type J44.9 ; Tremor R25.1 and Anxiety F41.9 [facility] [address] [id number] [address] [place] [id number] Dec, [facility] [address] [id number] [address] [place] [phone] Nov, Tremors of nervous system R2 5.1 and Cramping of feet R25.2 [facility] [address] [facility] [id number] [address] [place] [phone] Nov, [facility] [address] [place] [id number] [address] [place] [phone] Nov, [facility] [address] [place] [id number] [address] [place] [phone] Oct, Chronic obstructive pulmonar y disease, unspecified J44.9 [facility] [address] [facility] [id number] [address] [place] [phone] Oct, [facility] [address] [facility] [id number] [address] [place] [phone] Oct, Tremor R25.1 [facility] [address] [facility] [id number] [address] [place] [id number] Oct, Bipolar I disorder with depr ession F31.9 ; Diabetes E11.9 ; PTSD (post-traumatic stress disorder) F43.10 and Panic disorder with agoraphobia F40.01 [facility] [address] [facility] [id number] [address] [place] [phone] Oct, Mood disorder F39 [facility] [address] [place] [id number] [address] [place] [phone] September, [facility] [address] [place] [id number] [address] [place] [id number] September, Diabetes E11.9 ; Bipolar I d isorder with depression F31.9 ; PTSD (post-traumatic stress disorder) F43.10 and Panic disorder with agoraphobia F40.01 [facility] [address] [id number] [address] [place] [id number] September, Mood disorder F39 ; Schizoaf fective disorder, unspecified type F25.9 ; Arthritis M19.90 ; Tremor R25.1 ; Acute non-recurrent frontal sinusitis J01.10 and Blood in stool K92.1 [facility] [address] [id number] [address] [place] [phone] September, [place] [address] [facility] [id number] [address] [place] [id number] September, Chronic obstructive pulmonar y disease, unspecified J44.9 [place] [address] [facility] [id number] [address] [place] [id number] September, Diabetes E11.9 [place] [id number] [facility] [id number] [address] [place] [phone] Aug, Other bipolar disorder F31.8 9 and Anxiety disorder, unspecified F41.9 [place] [address] [facility] [id number] [address] [place] [phone] Aug, [place] [address] [facility] [id number] [address] [place] [phone] Aug, Diabetes E11.9 [facility] [address] [id number] [address] [place] [id number] 18 Aug, 2015 [place] [address] [facility] [id number] [address] [place] [phone] 14 Aug, 2015 Diabetes E11.9 ; Fatigue R53 .83 and Dizziness R42 [facility] [address] [id number] [address] [place] [phone] Aug, Other bipolar disorder F31.8 9 [place] [address] [id number] [address] [place] [id number] 07 Aug, 2015 Generalized anxiety disorder F41.1 [facility] [address] [id number] [address] [place] [id number] Aug, Other bipolar disorder F31.8 9 and Anxiety disorder, unspecified F41.9 [facility] [address] [id number] [address] [place] [id number] Aug, [facility] [address] [id number] [address] [place] [id number] Jul, [facility] [address] [id number] [address] [place] [phone] 24 Jul, 2015 [facility] [address] [id number] [address] [place] [id number] Jul, Bronchitis J40 [facility] [address] [id number] [address] [place] [id number] Jul, Anxiety disorder F41.9 [facility] [address] [id number] [address] [place] [id number] Jul, Other bipolar disorder F31.8 9 and Anxiety disorder, unspecified F41.9 [facility] [address] [id number] [address] [place] [id number] 18 Jul, 2015 Other bipolar disorder F31.8 9 and Fibromyalgia M79.7 [facility] [address] [id number] [address] [place] [id number] Jul, [facility] [address] [id number] [address] [place] [id number] Jul, [facility] [address] [id number] [address] [place] [id number] Jul, [facility] [address] [id number] [address] [place] [id number] Jul, Other bipolar disorder F31.8 9 and Anxiety disorder, unspecified F41.9 [facility] [address] [place] [id number] [address] [place] [id number] Jun, GERD (gastroesophageal reflu x disease) K21.9 [facility] [address] [id number] Jun, [facility] [address] [id number] May, [facility] [address] [address] May, Diabetes E11.9 ; Back pain M 54.9 ; GERD (gastroesophageal reflux disease) K21.9 ; Hypertension I10 and Peripheral neuropathy G62.9 [facility] [address] [id number] Mar, [facility] [address] [phone] Mar, [facility] [address] [address] Mar, Acute sinusitis J01.90 and O titis media, left H66.92 [facility] [address] [phone] Feb, [facility] [address] [phone] Feb, [facility] [address] [phone] Feb, [facility] [address] [address] Feb, [facility] [address] [id number] 29 Jan, 2015 [facility] [address] [address] 24 Jan, 2015 Diabetes 250.00 and Back higinio n 724.5 [facility] [address] [place] [address] Jan, [facility] [address] [facility] [id number] [address] [place] [address] Dec, Diabetes 250.00 ; Benign ess ential hypertension 401.1 and Allergic rhinitis 477.9 [facility] [address] [place] [id number] [address] [place] [id number] Dec, [facility] [address] [place] [id number] [address] [place] [id number] Dec, [facility] [address] [place] [id number] [address] [place] [id number] Dec, Psychosis 298.9 [facility] [address] [place] [id number] [place] [id number] Dec, Medication side effect 995.2 0 and Generalized anxiety disorder 300.02 [facility] [address] [id number] Dec, Acquired cognitive dysfuncti on 294.9 [facility] [address] [place] [id number] [address] [place] [id number] Dec, [facility] [address] [place] [id number] [address] [place] [id number] Dec, Unspecified myalgia and myos itis 729.1 and Generalized anxiety disorder 300.02 [facility] [address] [place] [id number] [address] [place] [phone] Nov, [facility] [address] [place] [id number] [address] [place] [id number] Nov, [facility] [address] [place] [id number] [address] [place] [id number] Nov, [facility] [address] [place] [id number] [address] [place] [id number] Nov, Upper respiratory infection 465.9 and Chronic airway obstruction, not elsewhere classified 496 [facility] [address] [place] [id number] [address] [place] [id number] Nov, Hyponatremia 276.1 [facility] [address] [facility] [id number] [address] [place] [id number] Oct, [facility] [address] [facility] [id number] [address] [place] [id number] Oct, [facility] [address] [facility] [id number] [address] [place] [phone] Oct, [facility] [address] [facility] [id number] [address] [place] [id number] Oct, [facility] [address] [facility] [id number] [address] [place] [id number] Oct, Hyponatremia 276.1 [facility] [address] [facility] [id number] [address] [place] [id number] Oct, [facility] [address] [facility] [id number] [address] [place] [id number] Oct, [facility] [address] [facility] [id number] [address] [place] [id number] Oct, Generalized anxiety disorder 300.02 [facility] [address] [facility] [id number] [address] [place] [id number] Oct, Generalized anxiety disorder 300.02 and Diabetes 250.00 [facility] [address] [facility] [id number] [address] [place] [id number] Aug, [facility] [address] [facility] [id number] [address] [place] [phone] Aug, [facility] [address] [facility] [id number] [address] [place] [id number] Jul, [facility] [address] [facility] [id number] [address] [place] [id number] Jul, [facility] [address] [facility] [id number] [address] [place] [phone] Jun, [facility] [address] [id number] [address] [place] [address], [place] [address] Jun, [facility] [address] [id number] [address] [place] [address], [place] [address] Jun, [facility] [address] [id number] [address] [place] [address], [place] [address] Jun, [facility] [address] [id number] [address] [place] [address], [place] [address] Jun, [facility] [address] [id number] [address] [place] [address], [place] [address] May, [facility] [address] [id number] [address] [place] [address], [place] [address] May, [facility] [address] [id number] [address] [place] [address], [place] [address] Apr, [facility] [address] [id number] [address] [place] [address], [place] [address] Apr, [facility] [address] [id number] [address] [place] [address], [place] [address] Apr, [facility] [address] [id number] [address] [place] [address], [place] [address] Apr, [facility] [address] [id number] [address] [place] [address], [place] [address] Apr, [facility] [address] [id number] [address] [place] [address], [place] [address] Apr, [facility] [address] [id number] [address] [place] [address], [place] [address] Apr, [facility] [address] [id number] [address] [place] [address], [place] [address] Apr, [facility] [address] [id number] [address] [place] [address], [place] [address] 31 Feb, 2013 [facility] [address] [id number] [address] [place] [address], [place] [address] Feb, [facility] [address] [id number] [address] [place] [address], [place] [address] Jan, [facility] [address] [id number] [address] [place] [address], [place] [address] Jan, [facility] [address] [id number] [address] [place] [address], [place] [address] Dec, [facility] [address] [id number] [address] [place] [address], [place] [address] Dec, [facility] [address] [id number] [address] [place] [address], [place] [address] Dec, [facility] [address] [id number] [address] [place] [address], [place] [address] Nov, [facility] [address] [id number] [address] [place] [address], [place] [address] Nov, [facility] [address] [id number] [address] [place] [address], [place] [address] Nov, [facility] [address] [id number] [address] [place] [address], [place] [address] Oct, [facility] [address] [id number] [address] [place] [address], [place] [address] Oct, [facility] [address] [id number] [address] [place] [address], [place] [address] Oct, [facility] [address] [id number] [address] [place] [address], [place] [address] September, [facility] [address] [id number] [address] [place] [address], [place] [address] September, [facility] [address] [id number] [address] [place] [address], [place] [address] September, [facility] [address] [id number] [address] [place] [address], [place] [address] Aug, [facility] [address] [id number] [address] [place] [address], [place] [address] 20 Aug, 2011 [facility] [address] [id number] [address] [place] [address], [place] [address] 19 Aug, 2011 [facility] [address] [id number] [address] [place] [address], [place] [address] 16 Aug, 2011 [facility] [address] [id number] [address] [place] [address], [place] [address] Jul, [facility] [address] [id number] [address] [place] [address], [place] [address] 21 Jun, 2011 [facility] [address] [id number] [address] [place] [address], [place] [address] 14 Jun, 2011 [facility] [address] [id number] [address] [place] [address], [place] [address] 13 Jun, 2011 [facility] [address] [id number] [address] [place] [address], [place] [address] 07 Jun, 2011 [facility] [address] [id number] [address] [place] [address], [place] [address] 03 Jun, 2011 [facility] [address] [id number] [address] [place] [address], [place] [address] May, [facility] [address] [id number] [address] [place] [address], [place] [address] May, [facility] [address] [id number] [address] [place] [address], [place] [address] May, [facility] [address] [id number] [address] [place] [address], [place] [address] 04 May, 2011 [facility] [address] [id number] [address] [place] [address], [place] [address] 20 Apr, 2011 [facility] [address] [id number] [address] [place] [address], [place] [address] 13 Apr, 2011 [facility] [address] [id number] [address] [place] [address] [address] 05 Apr, 2011 [facility] [address] [id number] [address] [place] [address], [place] [address] Mar, [facility] [address] [id number] [address] [place] [address], [place] [address] Mar, [facility] [address] [id number] [address] [place] [address], [place] [address] Mar, [facility] [address] [id number] [address] [place] [address], [place] [address] Feb, [facility] [address] [id number] [address] [place] [address], [place] [address] Feb, [facility] [address] [id number] [address] [place] [address], [place] [address] Feb, [facility] [address] [id number] [address] [place] [address], [place] [address] Nov, [facility] [address] [id number] [address] [place] [address], [place] [address] September, [facility] [address] [id number] [address] [place] [address], [place] [address] Aug, [facility] [address] [id number] [address] [place] [address], [place] [address] 14 Jul, 2010 [facility] [address] [id number] [address] [place] [address], [place] [address] May, [facility] [address] [id number] [address] [place] [address], [place] [address] 31 Apr, 2010 [facility] [address] [id number] [address] [place] [address], [place] [address] 30 Apr, 2010 [facility] [address] [id number] [address] [place] [address], [place] [address] 13 Apr, 2010 [facility] [address] [id number] [address] [place] [address], [place] [address] 10 Apr, 2010 [facility] [address] [id number] [facility] [address] Apr, IMMUNIZATIONS No Known Immunizations SOCIAL HISTORY [...]
--- OUTSIDE RECORDS SUMMARY | 2019-07-17 11:12 | XMS REPORT ---
Author Author Sujey GANDHI Organization [facility] Address [address] [place] [address] Care Team Providers Care Mangle Operator Garments Name Role Phone WHIT GANDHI Unavailable PROBLEMS Type Condition ICD9-CM Code USY00-ID Code Onset Dates Condition S tatus SNOMED Code Problem Back pain M54.9 Active 272044459 Problem Diabetes E11.9 Active 65127321 Problem GERD (gastroesophageal reflux disease) K21.9 Active 447895911 Problem Hypertension I10 Active 1300112 3 Problem Anxiety disorder, unspecified F41.9 Active 541947962 Problem Other bipolar disorder F31.89 Active 71857508 Problem Fibromyalgia M79.7 Active 5151535 7 Problem Panic disorder with agoraphobia F40.01 Active 20914087 Problem Panlobular emphysema J43.1 Active 7633691 Problem Chronic obstructive pulmonary disease, unspecified J44.9 Active 39754014 Problem Akathisia G25.71 Active 711755128 Problem Lumbago with sciatica, left side M54.42 Active 741686419 Problem Migraine without aura and without status migrain osus, not intractable G43.009 Active 251797744 Problem Fibrocystic disease of right breast N60.11 Active 72727975 Problem Fibrocystic disease of left breast N60.12 Active 36263743 Problem Slow transit constipation K59.01 Acti ve 46588161 Problem Essential tremor G25.0 Active 609 184353 Problem Bipolar 1 disorder, depressed, moderate F31.32 Active 25392946 Problem Other chronic pain G89.29 Active 8 5603228 Problem Lumbago with sciatica, right side M54.41 Active 337749486 Problem Irritable bowel syndrome with constipation K58.1 Active 457174548 Problem Arthritis M19.90 Active 4999772 Problem Schizoaffective disorder, bipolar type F25.0 Active 39081715 Problem Irritable bowel syndrome with both constipation and diarrh ea K58.2 Active 63686442 Problem Attention deficit hyperactiv ity disorder (ADHD), predominantly inattentive type F90.0 Active 92835655 Problem Bipolar I disorder with depression F31.9 Active 18636400 Problem Chronic post-traumatic stress disorder (PTSD) F43. 12 Active 471609221 Problem Bipolar affective disorder, remission status unspecified F31.9 Active 65461176 Problem Mild persistent asthma without complication J45.30 Active 784583784 Problem Moderate persistent asthma without complication J4 5.40 Active 972661009 Problem Acute non-recurrent maxillary sinusitis J01.00 Active 70337662 Problem Bipolar 1 disorder, depressed, partial remission F 31.75 Active 45561371 ALLERGIES No Information ENCOUNTERS Encounter Location Date Diagnosis [facility] [address] [id number] [address] [place] [id number] Dec, [facility] [address] [id number] [address] [place] [address] Nov, [facility] [address] [id number] [address] [place] [address] Nov, 2018 Cerebrovascular accident (CV A) due to occlusion of right cerebellar artery I63.541 and Acute non-recurrent maxillary sinusitis J01.00 [facility] [address] [id number] [address] [place] [address] Nov, [facility] [address] [id number] [address] [place] [id number] Nov, [facility] [address] [id number] [address] [place] [address] Nov, [facility] [address] [id number] [address] [place] [id number] Nov, [facility] [address] [id number] [address] [place] [address] Nov, [facility] [address] [id number] [address] [place] [id number] Nov, [facility] [address] [id number] [address] [place] [id number] Nov, [facility] [address] [id number] [address] [place] [id number] Nov, [facility] [address] [facility] [id number] [address] [place] [id number] Nov, Mild persistent asthma witho ut complication J45.30 and Irritable bowel syndrome with both constipation and diarrhea K58.2 [facility] [address] [facility] [id number] [address] [place] [id number] Nov, [facility] [address] [id number] [address] [place] [phone] Oct, [facility] [address] [facility] [id number] [address] [place] [id number] Oct, [facility] [address] [facility] [id number] [address] [place] [id number] Oct, Type 2 diabetes mellitus wit h diabetic neuropathy, unspecified whether skilled nursing insulin use E11.40 ; Diabetes E11.9 ; Slow transit constipation K59.01 ; Edema of both legs R60.0 and Dysfunction of right eustachian tube H69.81 [facility] [address] [facility] [id number] [address] [place] [id number] Oct, Frequent headaches R51 [facility] [address] [facility] [id number] [address] [place] [id number] Oct, [facility] [address] [facility] [id number] [address] [place] [phone] Oct, [facility] [address] [facility] [id number] [address] [place] [id number] Oct, [facility] [address] [facility] [id number] [address] [place] [id number] 18 Oct, 2017 [facility] [address] [facility] [id number] [address] [place] [id number] Oct, [facility] [address] [facility] [id number] [address] [place] [id number] 14 Oct, 2017 [facility] [address] [place] [id number] [address] [place] [id number] Oct, [facility] [address] [facility] [id number] [address] [place] [id number] Oct, [facility] [address] [facility] [id number] [address] [place] [phone] September, Frequent headaches R51 [facility] [address] [place] [place] [id number] [address] [place] [id number] September, Bilateral otitis media with effusion H65.93 ; Dizziness R42 and Essential tremor G25.0 [facility] [address] [facility] [id number] [address] [place] [id number] September, Chronic obstructive pulmonar y disease, unspecified COPD type J44.9 [facility] [address] [place] [id number] [address] [place] [id number] September, Chronic obstructive pulmonar y disease, unspecified COPD type J44.9 [facility] [address] [place] [id number] [address] [place] [address] September, Migraine without aura and wi thout status migrainosus, not intractable G43.009 [facility] [address] [id number] [address] [place] [id number] September, [facility] [address] [place] [id number] [address] [place] [phone] September, [facility] [address] [id number] [address] [place] [id number] September, [facility] [address] [facility] [id number] [address] [place] [address] September, Frequent headaches R51 [facility] [address] [facility] [id number] [address] [place] [address] Aug, [facility] [address] [place] [id number] [address] [place] [address] Aug, Breast mass, right N63.10 [facility] [address] [id number] [address] [place] [id number] Aug, Breast lump N63.0 [facility] [address] [facility] [id number] [address] [place] [phone] Aug, [facility] [address] [facility] [id number] [address] [place] [id number] Aug, Bipolar affective disorder, remission status unspecified F31.9 and Diabetes E11.9 [facility] [address] [facility] [id number] [address] [place] [id number] Aug, Diabetes E11.9 ; Schizoaffec tive disorder, bipolar type F25.0 ; Pharyngitis due to other organism J02.8 ; Panlobular emphysema J43.1 and Irritable bowel syndrome with both constipation and diarrhea K58.2 [place] [address] [facility] [id number] [address] [place] [phone] Aug, Abnormal mammogram R92.8 [place] [address] [facility] [id number] [address] [place] [id number] Aug, [place] [address] [facility] [id number] [address] [place] [id number] Aug, Bipolar 1 disorder, depresse d, moderate F31.32 ; Panic disorder with agoraphobia F40.01 and Chronic post-traumatic stress disorder (PTSD) F43.12 [place] [address] [facility] [id number] [address] [place] [id number] Aug, [place] [address] [facility] [id number] [address] [place] [address] Aug, [place] [address] [facility] [id number] [address] [place] [phone] Aug, [place] [address] [facility] [id number] [address] [place] [id number] Jul, [place] [address] [facility] [id number] [address] [place] [id number] 20 Jul, 2017 Mild persistent asthma witho ut complication J45.30 [facility] [address] [id number] [address] [place] [id number] 19 Jul, 2017 Mild persistent asthma witho ut complication J45.30 [facility] [address] [id number] [address] [place] [id number] 15 Jul, 2017 Bipolar affective disorder, remission status unspecified F31.9 ; Diabetes E11.9 and Irritable bowel syndrome with constipation K58.1 [facility] [address] [id number] [address] [place] [id number] 13 Jul, 2017 [facility] [address] [id number] [address] [place] [id number] 09 Jul, 2017 [facility] [address] [id number] [address] [place] [phone] Jul, Frequent headaches R51 [facility] [address] [id number] [address] [place] [id number] Jul, [facility] [address] [id number] [address] [place] [address] Jul, [facility] [address] [id number] [address] [place] [address] Jul, [facility] [address] [id number] [address] [place] [address] Jul, Frequent headaches R51 ; Fib rocystic disease of left breast N60.12 ; Fibrocystic disease of right breast N60.11 and Diabetes E11.9 [facility] [address] [id number] [address] [place] [address] Jul, [facility] [address] [id number] [address] [place] [address] Jul, [facility] [address] [facility] [id number] [address] [place] [address] Jun, Exudative tonsillitis J03.90 [facility] [address] [facility] [id number] [address] [place] [id number] 20 Jun, 2017 [facility] [address] [facility] [id number] [address] [place] [id number] 19 Jun, 2017 [facility] [address] [facility] [id number] [address] [place] [phone] 15 Jun, 2017 Mild persistent asthma witho ut complication J45.30 ; Chronic obstructive pulmonary disease, unspecified COPD type J44.9 and Exudative tonsillitis J03.90 [facility] [address] [facility] [id number] [address] [place] [phone] 13 Jun, 2017 Encounter for immunization Z 23 [facility] [address] [facility] [id number] [place] [id number] 12 Jun, 2017 [facility] [address] [address] 12 Jun, 2017 [facility] [address] [place] [id number] [address] [place] [id number] 09 Jun, 2017 [facility] [address] [facility] [id number] [address] [place] [address] 06 Jun, 2017 Tonsillitis J03.90 [facility] [address] [facility] [id number] [address] [place] [id number] 05 Jun, 2017 [facility] [address] [facility] [id number] [address] [place] [id number] 03 Jun, 2017 Acute non-recurrent maxillar y sinusitis J01.00 [facility] [address] [facility] [id number] [address] [place] [id number] Jun, [facility] [address] [place] [id number] [address] [place] [phone] May, [facility] [address] [facility] [id number] [address] [place] [id number] May, [facility] [address] [place] [id number] [address] [place] [id number] May, GERD (gastroesophageal reflu x disease) K21.9 [facility] [address] [facility] [id number] [address] [place] [address] May, Migraine without aura and wi thout status migrainosus, not intractable G43.009 [facility] [address] [place] [id number] [address] [place] [phone] May, [facility] [address] [place] [id number] [address] [place] [id number] May, [facility] [address] [id number] May, Panlobular emphysema J43.1 a nd Acute non-recurrent maxillary sinusitis J01.00 [place] [address] [address] May, Bipolar 1 disorder, depresse d, moderate F31.32 ; Panic disorder with agoraphobia F40.01 and Akathisia G25.71 [facility] [id number] [place] [address] Apr, [place] [address] [address] Apr, [place] [address] [address] Apr, Acute non-recurrent maxillar y sinusitis J01.00 [facility] [address] [place] [id number] [address] [place] [id number] Apr, Panlobular emphysema J43.1 [place] [address] [address] Apr, [facility] [address] [id number] [address] [place] [address] 04 Apr, 2017 Exudative tonsillitis J03.90 and Sore throat J02.9 [place] [address] [place] [address] [place] [address] 17 Mar, 2017 [facility] [address] [facility] [id number] [address] [place] [id number] 15 Mar, 2017 Acute non-recurrent maxillar y sinusitis J01.00 [facility] [address] [facility] [id number] [address] [place] [id number] 13 Mar, 2017 [facility] [address] [facility] [id number] [address] [place] [address] Mar, Panlobular emphysema J43.1 a nd Diabetes E11.9 [facility] [address] [id number] 06 Mar, 2017 [facility] [address] [facility] [id number] [place] [address] 24 Feb, 2017 Wheezing R06.2 and Acute rec urrent pansinusitis J01.41 [facility] [address] [place] [id number] [address] [place] [address] Feb, [facility] [address] [place] [id number] [place] [address] Feb, Acute non-recurrent maxillar y sinusitis J01.00 [facility] [address] [place] [id number] [place] [address] 16 Feb, 2017 Chronic obstructive pulmonar y disease, unspecified J44.9 [facility] [address] [place] [place] [id number] [address] [place] [address] Feb, Hypoxemia R09.02 and Chronic obstructive pulmonary disease, unspecified J44.9 [facility] [address] [address] 28 Jan, 2017 Bipolar 1 disorder, depresse d, moderate F31.32 ; Panic disorder with agoraphobia F40.01 ; Chronic post-traumatic stress disorder (PTSD) F43.12 ; Diabetes E11.9 and Moderate persistent asthma without complication J45.40 [facility] [address] [place] [address] 22 Jan, 2017 [facility] [address] [id number] [address] [place] [id number] 19 Jan, 2017 Acute non-recurrent maxillar y sinusitis J01.00 [facility] [address] [id number] [address] [place] [id number] 18 Jan, 2017 [facility] [address] [id number] [address] [place] [address] 18 Jan, 2017 [facility] [address] [id number] [address] [place] [id number] 12 Jan, 2017 Moderate persistent asthma w ithout complication J45.40 and Hypoxemia R09.02 [facility] [address] [id number] [address] [place] [address] Jan, Moderate persistent asthma w ithout complication J45.40 and Hypoxemia R09.02 [facility] [address] [id number] [address] [place] [address] Jan, [facility] [address] [id number] [address] [place] [id number] Dec, Acute non-recurrent maxillar y sinusitis J01.00 [facility] [address] [id number] [address] [place] [address] Dec, Chronic obstructive pulmonar y disease, unspecified J44.9 [facility] [address] [id number] [address] [place] [address] Dec, [facility] [address] [id number] [address] [place] [address] Dec, Mild persistent asthma witho ut complication J45.30 and Other chronic pain G89.29 [facility] [address] [id number] [address] [place] [address] Nov, [facility] [address] [id number] [address] [place] [address] Nov, Acute non-recurrent maxillar y sinusitis J01.00 [facility] [address] [id number] [address] [place] [address] Nov, [facility] [address] [id number] [address] [place] [id number] Nov, [facility] [address] [id number] [address] [place] [address] Oct, [facility] [address] [id number] [address] [place] [address] Oct, Bipolar 1 disorder, depresse d, partial remission F31.75 ; Panic disorder with agoraphobia F40.01 and Chronic post-traumatic stress disorder (PTSD) F43.12 [facility] [address] [id number] [address] [place] [address] Oct, Acute non-recurrent maxillar y sinusitis J01.00 [facility] [address] [id number] [address] [place] [phone] Oct, [facility] [address] [id number] [address] [place] [address] Oct, Diabetes E11.9 [facility] [address] [id number] [address] [place] [address] September, Diabetes E11.9 [facility] [address] [id number] [address] [place] [address] September, Diabetes E11.9 and Sinus tac hycardia R00.0 [facility] [address] [id number] [address] [place] [phone] September, [facility] [address] [id number] [address] [place] [id number] September, [facility] [address] [id number] [address] [place] [address] Aug, Diabetes E11.9 and Lumbago w ith sciatica, right side M54.41 [facility] [address] [id number] [address] [place] [id number] Aug, [facility] [address] [facility] [id number] [address] [place] [address] Jul, Bipolar 1 disorder, depresse d, moderate F31.32 ; Panic disorder with agoraphobia F40.01 and Chronic post-traumatic stress disorder (PTSD) F43.12 [facility] [address] [facility] [id number] [address] [place] [id number] Jul, Sore throat J02.9 [facility] [address] [facility] [id number] [address] [place] [address] Jul, [facility] [address] [facility] [id number] [address] [place] [phone] Jul, [facility] [address] [place] [id number] [address] [place] [id number] Jul, [facility] [address] [facility] [id number] [address] [place] [id number] Jul, [facility] [address] [facility] [id number] [address] [place] [phone] Jul, Sore throat J02.9 and Pharyn gitis, unspecified etiology J02.9 [facility] [address] [facility] [id number] [address] [place] [id number] Jun, [facility] [address] [facility] [id number] [address] [place] [id number] Jun, Diabetes E11.9 [facility] [address] [facility] [id number] [address] [place] [id number] Jun, [facility] [address] [facility] [id number] [address] [place] [id number] Jun, [facility] [address] [facility] [id number] [address] [place] [id number] Jun, [facility] [address] [place] [id number] [address] [place] [id number] Jun, [facility] [address] [id number] [address] [place] [id number] Jun, [facility] [address] [id number] [address] [place] [id number] Jun, [facility] [address] [facility] [id number] [address] [place] [id number] Jun, [facility] [address] [id number] [address] [place] [id number] Jun, [facility] [address] [id number] [address] [place] [id number] May, Diabetes E11.9 ; Other chron ic pain G89.29 ; Acute recurrent maxillary sinusitis J01.01 ; Bipolar I disorder with depression F31.9 and Anxiety disorder, unspecified F41.9 [facility] [address] [facility] [id number] [address] [place] [id number] May, [facility] [address] [id number] [address] [place] [id number] May, Diabetes E11.9 ; Bipolar I d isorder with depression F31.9 ; Anxiety disorder, unspecified F41.9 ; Other chronic pain G89.29 and Acute recurrent maxillary sinusitis J01.01 [facility] [address] [id number] [address] [place] [id number] May, [facility] [address] [id number] [address] [place] [id number] May, Attention deficit hyperactiv ity disorder (ADHD), predominantly inattentive type F90.0 [facility] [address] [facility] [id number] [address] [place] [id number] May, [facility] [address] [facility] [id number] [address] [place] [id number] Apr, Attention deficit hyperactiv ity disorder (ADHD), predominantly inattentive type F90.0 and Non-seasonal allergic rhinitis due to other allergic trigger J30.89 [place] [id number] [facility] [id number] [address] [place] [address] [id number] 15 Apr, 2016 Bipolar 1 disorder, depresse d, moderate F31.32 ; Panic disorder with agoraphobia F40.01 and Chronic post-traumatic stress disorder (PTSD) F43.12 [place] [address] [address] [facility] [id number] [address] [place] [address] Apr, Dental examination Z01.20 [place] [address] [id number] [address] [place] [id number] Mar, [place] [address] [address] [facility] [id number] [address] [place] [address] Mar, [place] [address] [facility] [id number] [address] [place] [address] Mar, Bipolar I disorder with depr ession F31.9 and Anxiety disorder, unspecified F41.9 [place] [address] [facility] [id number] [address] [place] [address] 08 Mar, 2016 Panic disorder with agorapho syd F40.01 ; Bipolar 1 disorder, depressed, moderate F31.32 and Chronic post-traumatic stress disorder (PTSD) F43.12 [place] [address] [facility] [id number] [address] [place] [id number] 04 Mar, 2016 [place] [address] [facility] [id number] [address] [place] [address] Mar, Dental caries K02.9 [place] [address] [id number] [address] [place] [address] Feb, Lumbago with sciatica, left side M54.42 ; Lumbago with sciatica, right side M54.41 and Other chronic pain G89.29 [place] [address] [facility] [id number] [address] [place] [id number] 17 Feb, 2016 [place] [address] [facility] [id number] [address] [place] [id number] 14 Feb, 2016 [facility] [address] [facility] [id number] [address] [place] [address] Feb, Bipolar I disorder with depr ession F31.9 ; PTSD (post-traumatic stress disorder) F43.10 and Mood disorder F39 [facility] [address] [id number] [address] [place] [id number] 13 Feb, 2016 [facility] [address] [facility] [id number] [address] [place] [address] 11 Feb, 2016 Dental examination Z01.20 [facility] [address] [facility] [id number] [address] [place] [id number] 07 Feb, 2016 [facility] [address] [facility] [id number] [address] [place] [id number] 03 Feb, 2016 Acute bronchitis, unspecifie d organism J20.9 [facility] [address] [facility] [id number] [address] [place] [address] 26 Jan, 2016 Mood disorder F39 ; Migraine without aura and without status migrainosus, not intractable G43.009 ; Irritable bowel syndrome, unspecified type K58.9 ; Diabetes E11.9 and Encounter for immunization Z23 [facility] [address] [facility] [id number] [address] [place] [id number] 15 Jan, 2016 [facility] [address] [facility] [id number] [address] [place] [id number] Jan, [facility] [address] [facility] [id number] [address] [place] [id number] Jan, [facility] [address] [facility] [id number] [address] [place] [id number] Jan, [facility] [address] [facility] [id number] [address] [place] [id number] Jan, [facility] [address] [facility] [id number] [address] [place] [address] Dec, Bipolar I disorder with depr ession F31.9 ; PTSD (post-traumatic stress disorder) F43.10 and Panic disorder with agoraphobia F40.01 [facility] [address] [facility] [id number] [address] [place] [address] Dec, Chronic obstructive pulmonar y disease, unspecified COPD type J44.9 ; Tremor R25.1 and Anxiety F41.9 [facility] [address] [id number] [address] [place] [address] Dec, [facility] [address] [id number] [address] [place] [address] Nov, Tremors of nervous system R2 5.1 and Cramping of feet R25.2 [facility] [address] [facility] [id number] [address] [place] [address] Nov, [facility] [address] [place] [id number] [address] [place] [address] Nov, [facility] [address] [place] [id number] [address] [place] [address] Oct, Chronic obstructive pulmonar y disease, unspecified J44.9 [facility] [address] [facility] [id number] [address] [place] [id number] Oct, [facility] [address] [facility] [id number] [address] [place] [address] Oct, Tremor R25.1 [facility] [address] [facility] [id number] [address] [place] [id number] Oct, Bipolar I disorder with depr ession F31.9 ; Diabetes E11.9 ; PTSD (post-traumatic stress disorder) F43.10 and Panic disorder with agoraphobia F40.01 [facility] [address] [facility] [id number] [address] [place] [address] Oct, Mood disorder F39 [facility] [address] [place] [id number] [address] [place] [address] September, [facility] [address] [place] [id number] [address] [place] [address] September, Diabetes E11.9 ; Bipolar I d isorder with depression F31.9 ; PTSD (post-traumatic stress disorder) F43.10 and Panic disorder with agoraphobia F40.01 [facility] [address] [id number] [address] [place] [address] September, Mood disorder F39 ; Schizoaf fective disorder, unspecified type F25.9 ; Arthritis M19.90 ; Tremor R25.1 ; Acute non-recurrent frontal sinusitis J01.10 and Blood in stool K92.1 [facility] [address] [id number] [address] [place] [address] September, [place] [address] [facility] [id number] [address] [place] [address] September, Chronic obstructive pulmonar y disease, unspecified J44.9 [place] [address] [address] [facility] [id number] [address] [place] [address] September, Diabetes E11.9 [place] [address] [facility] [id number] [address] [place] [address] Aug, Other bipolar disorder F31.8 9 and Anxiety disorder, unspecified F41.9 [place] [address] [facility] [id number] [address] [place] [address] Aug, [place] [address] [facility] [id number] [address] [place] [address] Aug, Diabetes E11.9 [facility] [address] [id number] [address] [place] [address] 18 Aug, 2015 [place] [address] [facility] [id number] [address] [place] [address] 14 Aug, 2015 Diabetes E11.9 ; Fatigue R53 .83 and Dizziness R42 [facility] [address] [id number] [address] [place] [phone] Aug, Other bipolar disorder F31.8 9 [place] [address] [id number] [address] [place] [id number] 07 Aug, 2015 Generalized anxiety disorder F41.1 [facility] [address] [id number] [address] [place] [id number] Aug, Other bipolar disorder F31.8 9 and Anxiety disorder, unspecified F41.9 [facility] [address] [id number] [address] [place] [address] Aug, [facility] [address] [id number] [address] [place] [address] Jul, [facility] [address] [id number] [address] [place] [id number] 24 Jul, 2015 [facility] [address] [id number] [address] [place] [address] Jul, Bronchitis J40 [facility] [address] [id number] [address] [place] [address] Jul, Anxiety disorder F41.9 [facility] [address] [id number] [address] [place] [address] Jul, Other bipolar disorder F31.8 9 and Anxiety disorder, unspecified F41.9 [facility] [address] [id number] [address] [place] [id number] 18 Jul, 2015 Other bipolar disorder F31.8 9 and Fibromyalgia M79.7 [facility] [address] [id number] [address] [place] [address] Jul, [facility] [address] [id number] [address] [place] [id number] Jul, [facility] [address] [id number] [address] [place] [id number] Jul, [facility] [address] [id number] [address] [place] [address] Jul, Other bipolar disorder F31.8 9 and Anxiety disorder, unspecified F41.9 [facility] [address] [place] [id number] [address] [place] [address] Jun, GERD (gastroesophageal reflu x disease) K21.9 [facility] [address] [address] Jun, [facility] [address] [address] May, [facility] [address] [address] May, Diabetes E11.9 ; Back pain M 54.9 ; GERD (gastroesophageal reflux disease) K21.9 ; Hypertension I10 and Peripheral neuropathy G62.9 [facility] [address] [phone] Mar, [facility] [address] [address] Mar, [facility] [address] [address] Mar, Acute sinusitis J01.90 and O titis media, left H66.92 [facility] [address] [address] Feb, [facility] [address] [address] Feb, [facility] [address] [address] Feb, [facility] [address] [address] Feb, [facility] [address] [address] 29 Jan, 2015 [facility] [address] [address] 24 Jan, 2015 Diabetes 250.00 and Back higinio n 724.5 [facility] [address] [place] [address] Jan, [facility] [address] [facility] [id number] [address] [place] [address] Dec, Diabetes 250.00 ; Benign ess ential hypertension 401.1 and Allergic rhinitis 477.9 [facility] [address] [place] [id number] [address] [place] [address] Dec, [facility] [address] [place] [id number] [address] [place] [address] Dec, [facility] [address] [place] [id number] [address] [place] [address] Dec, Psychosis 298.9 [facility] [address] [place] [id number] [place] [address] Dec, Medication side effect 995.2 0 and Generalized anxiety disorder 300.02 [facility] [address] [address] Dec, Acquired cognitive dysfuncti on 294.9 [facility] [address] [place] [id number] [address] [place] [address] Dec, [facility] [address] [place] [id number] [address] [place] [address] Dec, Unspecified myalgia and myos itis 729.1 and Generalized anxiety disorder 300.02 [facility] [address] [place] [id number] [address] [place] [address] Nov, [facility] [address] [place] [id number] [address] [place] [id number] Nov, [facility] [address] [place] [id number] [address] [place] [address] Nov, [facility] [address] [place] [id number] [address] [place] [address] Nov, Upper respiratory infection 465.9 and Chronic airway obstruction, not elsewhere classified 496 [facility] [address] [place] [id number] [address] [place] [address] Nov, Hyponatremia 276.1 [facility] [address] [facility] [id number] [address] [place] [phone] Oct, [facility] [address] [facility] [id number] [address] [place] [address] Oct, [facility] [address] [facility] [id number] [address] [place] [id number] Oct, [facility] [address] [facility] [id number] [address] [place] [id number] Oct, [facility] [address] [facility] [id number] [address] [place] [address] Oct, Hyponatremia 276.1 [facility] [address] [facility] [id number] [address] [place] [address] Oct, [facility] [address] [facility] [id number] [address] [place] [id number] Oct, [facility] [address] [facility] [id number] [address] [place] [address] Oct, Generalized anxiety disorder 300.02 [facility] [address] [facility] [id number] [address] [place] [address] Oct, Generalized anxiety disorder 300.02 and Diabetes 250.00 [facility] [address] [facility] [id number] [address] [place] [address] Aug, [facility] [address] [facility] [id number] [address] [place] [address] Aug, [facility] [address] [facility] [id number] [address] [place] [phone] Jul, [facility] [address] [facility] [id number] [address] [place] [id number] Jul, [facility] [address] [facility] [id number] [address] [place] [address] Jun, [facility] [address] [id number] [address] [place] [address], [place] [address] Jun, [facility] [address] [id number] [address] [place] [address], [place] [address] Jun, [facility] [address] [id number] [address] [place] [address], [place] [address] Jun, [facility] [address] [id number] [address] [place] [address], [place] [address] Jun, [facility] [address] [id number] [address] [place] [address], [place] [address] May, [facility] [address] [id number] [address] [place] [address], [place] [address] May, [facility] [address] [id number] [address] [place] [address], [place] [address] Apr, [facility] [address] [id number] [address] [place] [address], [place] [address] Apr, [facility] [address] [id number] [address] [place] [address], [place] [address] Apr, [facility] [address] [id number] [address] [place] [address], [place] [address] Apr, [facility] [address] [id number] [address] [place] [address], [place] [address] Apr, [facility] [address] [id number] [address] [place] [address], [place] [address] Apr, [facility] [address] [id number] [address] [place] [address], [place] [id number] Apr, [facility] [address] [id number] [address] [place] [address], [place] [address] Apr, [facility] [address] [id number] [address] [place] [address], [place] [address] 31 Feb, 2013 [facility] [address] [id number] [address] [place] [address], [place] [address] Feb, [facility] [address] [id number] [address] [place] [address], [place] [address] Jan, [facility] [address] [id number] [address] [place] [address], [place] [address] Jan, [facility] [address] [id number] [address] [place] [address], [place] [address] Dec, [facility] [address] [id number] [address] [place] [address], [place] [address] Dec, [facility] [address] [id number] [address] [place] [address], [place] [address] Dec, [facility] [address] [id number] [address] [place] [address], [place] [address] Nov, [facility] [address] [id number] [address] [place] [address], [place] [address] Nov, [facility] [address] [id number] [address] [place] [address], [place] [address] Nov, [facility] [address] [id number] [address] [place] [address], [place] [address] Oct, [facility] [address] [id number] [address] [place] [address], [place] [address] Oct, [facility] [address] [id number] [address] [place] [address], [place] [address] Oct, [facility] [address] [id number] [address] [place] [address], [place] [address] September, [facility] [address] [id number] [address] [place] [address], [place] [address] September, [facility] [address] [id number] [address] [place] [address], [place] [address] September, [facility] [address] [id number] [address] [place] [address], [place] [address] Aug, [facility] [address] [id number] [address] [place] [address], [place] [address] 20 Aug, 2011 [facility] [address] [id number] [address] [place] [address], [place] [address] 19 Aug, 2011 [facility] [address] [id number] [address] [place] [address], [place] [id number] 16 Aug, 2011 [facility] [address] [id number] [address] [place] [address], [place] [address] Jul, [facility] [address] [id number] [address] [place] [address], [place] [address] 21 Jun, 2011 [facility] [address] [id number] [address] [place] [address], [place] [address] 14 Jun, 2011 [facility] [address] [id number] [address] [place] [address], [place] [address] 13 Jun, 2011 [facility] [address] [id number] [address] [place] [address], [place] [address] 07 Jun, 2011 [facility] [address] [id number] [address] [place] [address], [place] [address] 03 Jun, 2011 [facility] [address] [id number] [address] [place] [address], [place] [address] May, [facility] [address] [id number] [address] [place] [address], [place] [address] May, [facility] [address] [id number] [address] [place] [address], [place] [address] May, [facility] [address] [id number] [address] [place] [address], [place] [address] 04 May, 2011 [facility] [address] [id number] [address] [place] [address], [place] [address] 20 Apr, 2011 [facility] [address] [id number] [address] [place] [address], [place] [address] 13 Apr, 2011 [facility] [address] [id number] [address] [place], [place] [address] [address] 05 Apr, 2011 [facility] [address] [id number] [address] [place] [address], [place] [id number] Mar, [facility] [address] [id number] [address] [place] [address], [place] [id number] Mar, [facility] [address] [id number] [address] [place] [address], [place] [id number] Mar, [facility] [address] [id number] [address] [place] [address], [place] [id number] Feb, [facility] [address] [id number] [address] [place] [address], [place] [id number] Feb, [facility] [address] [id number] [address] [place] [address], [place] [id number] Feb, [facility] [address] [id number] [address] [place] [address], [place] [id number] Nov, [facility] [address] [id number] [address] [place] [address], [place] [id number] September, [facility] [address] [id number] [address] [place] [address], [place] [id number] Aug, [facility] [address] [id number] [address] [place] [address], [place] [id number] 14 Jul, 2010 [facility] [address] [id number] [address] [place] [address], [place] [id number] May, [facility] [address] [id number] [address] [place] [address], [place] [id number] 31 Apr, 2010 [facility] [address] [id number] [address] [place] [address], [place] [id number] 30 Apr, 2010 [facility] [address] [id number] [address] [place] [address], [place] [id number] 13 Apr, 2010 [facility] [address] [id number] [address] [place] [address], [place] [id number] 10 Apr, 2010 [facility] [address] [id number] [facility] [place] [address] Apr, IMMUNIZATIONS No Known Immunizations SOCIAL HISTORY Never Assessed REASON FOR VISIT mammo results. PLAN OF CARE VITAL SIGNS MEDICATIONS Unknown [...]
--- OUTSIDE RECORDS SUMMARY | 2019-07-17 11:13 | XMS REPORT ---
Author Author Sujey GANDHI Organization [facility] [place] Address [address] [place] [address] Care Team Providers Care Paste Worker Name Role Phone WHIT GANDHI Unavailable PROBLEMS Type Condition ICD9-CM Code [id number] Code Onset Dates Condition S tatus SNOMED Code Problem Back pain M54.9 Active 957957471 Problem Diabetes E11.9 Active 27855881 Problem GERD (gastroesophageal reflux disease) K21.9 Active 498453965 Problem Hypertension I10 Active 7843512 3 Problem Anxiety disorder, unspecified F41.9 Active 977088389 Problem Other bipolar disorder F31.89 Active 26384162 Problem Fibromyalgia M79.7 Active 3930280 7 Problem Panic disorder with agoraphobia F40.01 Active 79285798 Problem Panlobular emphysema J43.1 Active 2761996 Problem Chronic obstructive pulmonary disease, unspecified J44.9 Active 72816363 Problem Akathisia G25.71 Active 665342521 Problem Lumbago with sciatica, left side M54.42 Active 685599606 Problem Migraine without aura and without status migrain osus, not intractable G43.009 Active 998047886 Problem Fibrocystic disease of right breast N60.11 Active 54483001 Problem Fibrocystic disease of left breast N60.12 Active 80326074 Problem Slow transit constipation K59.01 Acti ve 92700041 Problem Essential tremor G25.0 Active 609 254607 Problem Bipolar 1 disorder, depressed, moderate F31.32 Active 00595020 Problem Other chronic pain G89.29 Active 8 7976692 Problem Lumbago with sciatica, right side M54.41 Active 898687253 Problem Irritable bowel syndrome with constipation K58.1 Active 380137567 Problem Arthritis M19.90 Active 5570820 Problem Schizoaffective disorder, bipolar type F25.0 Active 75769952 Problem Irritable bowel syndrome with both constipation and diarrh ea K58.2 Active 71906991 Problem Attention deficit hyperactiv ity disorder (ADHD), predominantly inattentive type F90.0 Active 82298878 Problem Bipolar I disorder with depression F31.9 Active 78116831 Problem Chronic post-traumatic stress disorder (PTSD) F43. 12 Active 184312385 Problem Bipolar affective disorder, remission status unspecified F31.9 Active 24946573 Problem Mild persistent asthma without complication J45.30 Active 134532977 Problem Moderate persistent asthma without complication J4 5.40 Active 842841329 Problem Acute non-recurrent maxillary sinusitis J01.00 Active 11186973 Problem Bipolar 1 disorder, depressed, partial remission F 31.75 Active 67257081 ALLERGIES No Information ENCOUNTERS Encounter Location Date Diagnosis [facility] [place] [address] [id number] [address] [place] [id number] Nov, [facility] [place] [address] [id number] [address] [place] [address] Nov, [facility] [place] [address] [id number] [address] [place] [id number] Nov, [facility] [place] [address] [id number] [address] [place] [id number] Nov, [facility] [place] [address] [id number] [address] [place] [id number] Nov, [facility] [place] [address] [id number] [address] [place] [id number] Nov, [facility] [place] [address] [id number] [address] [place] [id number] Nov, [facility] [place] [address] [id number] [address] [place] [id number] Nov, [facility] [place] [address] [id number] [address] [place] [id number] Nov, [facility] [place] [address] [id number] [address] [place] [id number] Nov, [facility] [place] [address] [id number] [address] [place] [id number] Nov, Mild persistent asthma witho ut complication J45.30 and Irritable bowel syndrome with both constipation and diarrhea K58.2 [facility] [place] [address] [id number] [address] [place] [id number] Nov, [facility] [place] [address] [facility] [id number] [address] [place] [id number] Oct, [facility] [place] [address] [facility] [id number] [address] [place] [id number] Oct, [facility] [place] [address] [facility] [id number] [address] [place] [address] Oct, Type 2 diabetes mellitus wit h diabetic neuropathy, unspecified 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.40 ; Diabetes E11.9 ; Slow transit constipation K59.01 ; Edema of both legs R60.0 and Dysfunction of right eustachian tube H69.81 [facility] [place] [address] [place] [id number] [address] [place] [id number] Oct, Frequent headaches R51 [facility] [place] [address] [id number] [address] [place] [id number] Oct, [facility] [place] [address] [facility] [id number] [address] [place] [id number] Oct, [facility] [place] [address] [facility] [id number] [address] [place] [id number] Oct, [facility] [place] [address] [facility] [id number] [address] [place] [id number] Oct, [facility] [place] [address] [facility] [id number] [address] [place] [id number] Oct, [facility] [place] [address] [facility] [id number] [address] [place] [id number] Oct, [facility] [place] [address] [facility] [id number] [address] [place] [id number] Oct, [facility] [place] [address] [place] [id number] [address] [place] [id number] Oct, [facility] [place] [address] [facility] [id number] [address] [place] [address] September, Frequent headaches R51 [facility] [place] [address] [facility] [id number] [address] [place] [address] September, Bilateral otitis media with effusion H65.93 ; Dizziness R42 and Essential tremor G25.0 [facility] [place] [address] [facility] [id number] [address] [place] [address] September, Chronic obstructive pulmonar y disease, unspecified COPD type J44.9 [facility] [place] [address] [id number] [address] [place] [id number] September, Chronic obstructive pulmonar y disease, unspecified COPD type J44.9 [facility] [place] [address] [facility] [id number] [address] [place] [id number] September, Migraine without aura and wi thout status migrainosus, not intractable G43.009 [facility] [place] [address] [facility] [id number] [address] [place] [id number] September, [facility] [place] [address] [facility] [id number] [address] [place] [id number] September, [facility] [place] [address] [facility] [id number] [address] [place] [id number] September, [facility] [place] [address] [facility] [id number] [address] [place] [address] September, Frequent headaches R51 [facility] [place] [address] [facility] [id number] [address] [place] [id number] Aug, [facility] [place] [address] [facility] [id number] [address] [place] [address] Aug, Breast mass, right N63.10 [facility] [place] [address] [facility] [id number] [address] [place] [id number] Aug, Breast lump N63.0 [facility] [place] [address] [facility] [id number] [address] [place] [id number] Aug, [facility] [place] [address] [id number] [address] [place] [id number] Aug, Bipolar affective disorder, remission status unspecified F31.9 and Diabetes E11.9 [facility] [place] [address] [id number] [address] [place] [id number] 18 Aug, 2017 Diabetes E11.9 ; Schizoaffec tive disorder, bipolar type F25.0 ; Pharyngitis due to other organism J02.8 ; Panlobular emphysema J43.1 and Irritable bowel syndrome with both constipation and diarrhea K58.2 [place] [address] [id number] [address] [place] [id number] Aug, Abnormal mammogram R92.8 [place] [address] [id number] [address] [place] [address] Aug, [place] [address] [facility] [id number] [address] [place] [id number] Aug, Bipolar 1 disorder, depresse d, moderate F31.32 ; Panic disorder with agoraphobia F40.01 and Chronic post-traumatic stress disorder (PTSD) F43.12 [place] [address] [id number] [address] [place] [id number] Aug, [place] [address] [id number] [address] [place] [id number] Aug, [place] [address] [id number] [address] [place] [id number] Aug, [place] [address] [id number] [address] [place] [id number] Jul, [place] [address] [facility] [id number] [address] [place] [id number] Jul, Mild persistent asthma witho ut complication J45.30 [facility] [place] [address] [facility] [id number] [address] [place] [id number] Jul, Mild persistent asthma witho ut complication J45.30 [facility] [place] [address] [id number] [address] [place] [id number] 15 Jul, 2017 Bipolar affective disorder, remission status unspecified F31.9 ; Diabetes E11.9 and Irritable bowel syndrome with constipation K58.1 [facility] [place] [address] [id number] [address] [place] [id number] 13 Jul, 2017 [facility] [place] [address] [facility] [id number] [address] [place] [id number] 09 Jul, 2017 [facility] [place] [address] [id number] [address] [place] [id number] 08 Jul, 2017 Frequent headaches R51 [facility] [place] [address] [facility] [id number] [address] [place] [id number] 07 Jul, 2017 [facility] [place] [address] [facility] [id number] [address] [place] [id number] Jul, [facility] [place] [address] [facility] [id number] [address] [place] [id number] Jul, [facility] [place] [address] [facility] [id number] [address] [place] [id number] 05 Jul, 2017 Frequent headaches R51 ; Fib rocystic disease of left breast N60.12 ; Fibrocystic disease of right breast N60.11 and Diabetes E11.9 [facility] [place] [address] [facility] [id number] [address] [place] [id number] Jul, [facility] [place] [address] [facility] [id number] [address] [place] [id number] Jul, [facility] [place] [address] [facility] [id number] [address] [place] [id number] Jun, Exudative tonsillitis J03.90 [facility] [place] [address] [facility] [id number] [address] [place] [id number] Jun, [facility] [place] [address] [facility] [id number] [address] [place] [id number] Jun, [facility] [place] [address] [id number] 15 Jun, 2017 Mild persistent asthma witho ut complication J45.30 ; Chronic obstructive pulmonary disease, unspecified COPD type J44.9 and Exudative tonsillitis J03.90 [facility] [place] [address] [facility] [id number] [address] [place] [id number] 13 Jun, 2017 Encounter for immunization Z 23 [facility] [place] [address] [id number] 12 Jun, 2017 [facility] [place] [address] [id number] 12 Jun, 2017 [place] [address] [id number] 09 Jun, 2017 [facility] [address] [id number] 06 Jun, 2017 Tonsillitis J03.90 [facility] [place] [address] [place] [id number] [address] [place] [id number] 05 Jun, 2017 [place] [address] [id number] 03 Jun, 2017 Acute non-recurrent maxillar y sinusitis J01.00 [place] [address] [place] [id number] [address] [place] [id number] Jun, [facility] [place] [address] [place] [id number] [address] [place] [address] May, [facility] [place] [address] [place] [id number] [address] [place] [id number] May, [place] [address] [id number] May, GERD (gastroesophageal reflu x disease) K21.9 [facility] [place] [address] [place] [id number] [address] [place] [id number] May, Migraine without aura and wi thout status migrainosus, not intractable G43.009 [facility] [place] [address] [id number] [address] [place] [id number] May, [facility] [place] [address] [facility] [id number] [address] [place] [id number] May, [facility] [place] [address] [facility] [id number] [address] [place] [id number] May, Panlobular emphysema J43.1 a nd Acute non-recurrent maxillary sinusitis J01.00 [facility] [place] [address] [facility] [id number] [address] [place] [id number] May, Bipolar 1 disorder, depresse d, moderate F31.32 ; Panic disorder with agoraphobia F40.01 and Akathisia G25.71 [facility] [place] [address] [facility] [id number] [address] [place] [id number] Apr, [facility] [place] [address] [facility] [id number] [address] [place] [id number] Apr, [facility] [place] [address] [facility] [id number] [address] [place] [address] Apr, Acute non-recurrent maxillar y sinusitis J01.00 [facility] [place] [address] [facility] [id number] [address] [place] [id number] Apr, Panlobular emphysema J43.1 [facility] [place] [address] [facility] [id number] [address] [place] [id number] 04 Apr, 2017 [facility] [address] [facility] [id number] [address] [place] [id number] 04 Apr, 2017 Exudative tonsillitis J03.90 and Sore throat J02.9 [facility] [place] [address] [facility] [id number] [address] [place] [id number] Mar, [facility] [place] [address] [facility] [id number] [address] [place] [address] Mar, Acute non-recurrent maxillar y sinusitis J01.00 [facility] [place] [address] [facility] [id number] [address] [place] [id number] 13 Mar, 2017 [facility] [place] [address] [facility] [id number] [address] [place] [id number] Mar, Panlobular emphysema J43.1 a nd Diabetes E11.9 [facility] [place] [address] [facility] [id number] [address] [place] [id number] 06 Mar, 2017 [facility] [address] [facility] [id number] [address] [place] [id number] 24 Feb, 2017 Wheezing R06.2 and Acute rec urrent pansinusitis J01.41 [facility] [place] [address] [facility] [id number] [address] [place] [id number] Feb, [facility] [place] [address] [place] [id number] [address] [place] [id number] Feb, Acute non-recurrent maxillar y sinusitis J01.00 [facility] [place] [address] [facility] [id number] [address] [place] [phone] Feb, Chronic obstructive pulmonar y disease, unspecified J44.9 [facility] [place] [address] [facility] [id number] [address] [place] [address] Feb, Hypoxemia R09.02 and Chronic obstructive pulmonary disease, unspecified J44.9 [facility] [place] [address] [place] [id number] [address] [place] [id number] 28 Jan, 2017 Bipolar 1 disorder, depresse d, moderate F31.32 ; Panic disorder with agoraphobia F40.01 ; Chronic post-traumatic stress disorder (PTSD) F43.12 ; Diabetes E11.9 and Moderate persistent asthma without complication J45.40 [facility] [place] [address] [facility] [id number] [address] [place] [id number] Jan, [facility] [place] [address] [place] [id number] [address] [place] [id number] Jan, Acute non-recurrent maxillar y sinusitis J01.00 [facility] [place] [address] [id number] [address] [place] [id number] 18 Jan, 2017 [facility] [place] [address] [id number] [address] [place] [id number] 18 Jan, 2017 [facility] [place] [address] [id number] [address] [place] [id number] Jan, Moderate persistent asthma w ithout complication J45.40 and Hypoxemia R09.02 [facility] [place] [address] [id number] [address] [place] [id number] 11 Jan, 2017 Moderate persistent asthma w ithout complication J45.40 and Hypoxemia R09.02 [facility] [place] [address] [id number] [address] [place] [id number] Jan, [facility] [place] [address] [id number] [address] [place] [id number] Dec, Acute non-recurrent maxillar y sinusitis J01.00 [facility] [place] [address] [id number] [address] [place] [id number] Dec, Chronic obstructive pulmonar y disease, unspecified J44.9 [facility] [place] [address] [id number] [address] [place] [id number] Dec, [facility] [place] [address] [id number] [address] [place] [address] Dec, Mild persistent asthma witho ut complication J45.30 and Other chronic pain G89.29 [facility] [place] [address] [id number] [address] [place] [id number] Nov, [facility] [place] [address] [id number] [address] [place] [id number] Nov, Acute non-recurrent maxillar y sinusitis J01.00 [facility] [place] [address] [id number] [address] [place] [id number] Nov, [facility] [place] [address] [id number] [address] [place] [id number] Nov, [facility] [place] [address] [facility] [id number] [address] [place] [id number] Oct, [facility] [place] [address] [facility] [id number] [address] [place] [id number] Oct, Bipolar 1 disorder, depresse d, partial remission F31.75 ; Panic disorder with agoraphobia F40.01 and Chronic post-traumatic stress disorder (PTSD) F43.12 [facility] [address] [facility] [id number] [address] [place] [id number] Oct, Acute non-recurrent maxillar y sinusitis J01.00 [place] [address] [place] [id number] [address] [place] [id number] Oct, [place] [address] [place] [id number] [address] [place] [address] Oct, Diabetes E11.9 [place] [address] [facility] [id number] [address] [place] [address] September, Diabetes E11.9 [place] [address] [facility] [id number] [address] [place] [address] September, Diabetes E11.9 and Sinus tac hycardia R00.0 [facility] [place] [address] [facility] [id number] [address] [place] [id number] September, [place] [address] [facility] [id number] [address] [place] [id number] September, [facility] [place] [address] [facility] [id number] [address] [place] [id number] Aug, Diabetes E11.9 and Lumbago w ith sciatica, right side M54.41 [facility] [place] [address] [facility] [id number] [address] [place] [id number] Aug, [facility] [place] [address] [facility] [id number] [address] [place] [id number] Jul, Bipolar 1 disorder, depresse d, moderate F31.32 ; Panic disorder with agoraphobia F40.01 and Chronic post-traumatic stress disorder (PTSD) F43.12 [facility] [place] [address] [facility] [id number] [address] [place] [id number] Jul, Sore throat J02.9 [facility] [place] [address] [facility] [id number] [place] [id number] Jul, [facility] [place] [address] [facility] [id number] [address] [place] [id number] Jul, [facility] [place] [address] [facility] [id number] [address] [place] [id number] Jul, [facility] [place] [address] [facility] [id number] [address] [place] [id number] Jul, [facility] [place] [address] [facility] [id number] [address] [place] [id number] Jul, Sore throat J02.9 and Pharyn gitis, unspecified etiology J02.9 [facility] [place] [address] [id number] [address] [place] [id number] Jun, [facility] [place] [address] [facility] [id number] [address] [place] [id number] Jun, Diabetes E11.9 [facility] [place] [address] [facility] [id number] [address] [place] [id number] Jun, [facility] [place] [address] [facility] [id number] [address] [place] [id number] Jun, [facility] [place] [address] [facility] [id number] [address] [place] [id number] Jun, [facility] [place] [address] [facility] [id number] [address] [place] [id number] Jun, [facility] [place] [address] [facility] [id number] [address] [place] [id number] Jun, [facility] [place] [address] [facility] [id number] [address] [place] [id number] 15 Jun, 2016 [facility] [place] [address] [id number] [address] [place] [id number] Jun, [facility] [place] [address] [id number] [address] [place] [id number] Jun, [facility] [place] [address] [id number] [address] [place] [id number] May, Diabetes E11.9 ; Other chron ic pain G89.29 ; Acute recurrent maxillary sinusitis J01.01 ; Bipolar I disorder with depression F31.9 and Anxiety disorder, unspecified F41.9 [facility] [place] [address] [id number] [address] [place] [id number] May, [facility] [place] [address] [id number] [address] [place] [id number] May, Diabetes E11.9 ; Bipolar I d isorder with depression F31.9 ; Anxiety disorder, unspecified F41.9 ; Other chronic pain G89.29 and Acute recurrent maxillary sinusitis J01.01 [facility] [place] [address] [id number] [address] [place] [id number] May, [facility] [place] [address] [id number] [address] [place] [id number] May, Attention deficit hyperactiv ity disorder (ADHD), predominantly inattentive type F90.0 [facility] [place] [address] [facility] [id number] [address] [place] [id number] May, [facility] [place] [address] [id number] [address] [place] [id number] Apr, Attention deficit hyperactiv ity disorder (ADHD), predominantly inattentive type F90.0 and Non-seasonal allergic rhinitis due to other allergic trigger J30.89 [facility] [place] [address] [id number] [address] [place] [id number] Apr, Bipolar 1 disorder, depresse d, moderate F31.32 ; Panic disorder with agoraphobia F40.01 and Chronic post-traumatic stress disorder (PTSD) F43.12 [facility] [place] [address] [id number] [address] [place] [id number] Apr, Dental examination Z01.20 [facility] [place] [address] [id number] [address] [place] [id number] Mar, [facility] [place] [address] [id number] [address] [place] [id number] Mar, [facility] [place] [address] [id number] [address] [place] [id number] Mar, Bipolar I disorder with depr ession F31.9 and Anxiety disorder, unspecified F41.9 [facility] [place] [address] [id number] [address] [place] [id number] Mar, Panic disorder with agorapho syd F40.01 ; Bipolar 1 disorder, depressed, moderate F31.32 and Chronic post-traumatic stress disorder (PTSD) F43.12 [facility] [place] [address] [id number] [address] [place] [id number] Mar, [facility] [place] [address] [id number] [address] [place] [id number] Mar, Dental caries K02.9 [facility] [place] [address] [id number] [address] [place] [id number] 24 Feb, 2016 Lumbago with sciatica, left side M54.42 ; Lumbago with sciatica, right side M54.41 and Other chronic pain G89.29 [facility] [place] [address] [id number] [address] [place] [id number] Feb, [facility] [place] [address] [id number] [address] [place] [id number] 14 Feb, 2016 [facility] [place] [address] [id number] [address] [place] [id number] 13 Feb, 2016 Bipolar I disorder with depr ession F31.9 ; PTSD (post-traumatic stress disorder) F43.10 and Mood disorder F39 [facility] [place] [address] [facility] [id number] [address] [place] [id number] Feb, [facility] [place] [address] [facility] [id number] [address] [place] [id number] Feb, Dental examination Z01.20 [facility] [place] [address] [place] [id number] [address] [place] [id number] Feb, [facility] [address] [facility] [id number] [address] [place] [id number] Feb, Acute bronchitis, unspecifie d organism J20.9 [facility] [place] [address] [id number] [address] [place] [id number] Jan, Mood disorder F39 ; Migraine without aura and without status migrainosus, not intractable G43.009 ; Irritable bowel syndrome, unspecified type K58.9 ; Diabetes E11.9 and Encounter for immunization Z23 [facility] [place] [id number] [place] [id number] 15 Jan, 2016 [facility] [place] [address] [place] [id number] [address] [place] [id number] Jan, [facility] [place] [address] [place] [id number] [address] [place] [id number] Jan, [facility] [place] [address] [place] [id number] [address] [place] [id number] Jan, [place] [address] [id number] [address] [place] [id number] Jan, [facility] [place] [address] [id number] [address] [place] [id number] Dec, Bipolar I disorder with depr ession F31.9 ; PTSD (post-traumatic stress disorder) F43.10 and Panic disorder with agoraphobia F40.01 [facility] [place] [address] [id number] [address] [place] [id number] Dec, Chronic obstructive pulmonar y disease, unspecified COPD type J44.9 ; Tremor R25.1 and Anxiety F41.9 [facility] [place] [address] [id number] [address] [place] [id number] Dec, [facility] [place] [address] [id number] [address] [place] [id number] Nov, Tremors of nervous system R2 5.1 and Cramping of feet R25.2 [facility] [place] [address] [id number] [address] [place] [id number] Nov, [facility] [place] [address] [facility] [id number] [address] [place] [id number] Nov, [facility] [place] [address] [facility] [id number] [address] [place] [id number] Oct, Chronic obstructive pulmonar y disease, unspecified J44.9 [facility] [place] [address] [facility] [id number] [address] [place] [id number] Oct, [facility] [place] [address] [facility] [id number] [address] [place] [address] Oct, Tremor R25.1 [facility] [place] [address] [facility] [id number] [address] [place] [id number] Oct, Bipolar I disorder with depr ession F31.9 ; Diabetes E11.9 ; PTSD (post-traumatic stress disorder) F43.10 and Panic disorder with agoraphobia F40.01 [facility] [place] [address] [facility] [id number] [address] [place] [id number] Oct, Mood disorder F39 [facility] [place] [address] [facility] [id number] [address] [place] [id number] September, [facility] [place] [address] [facility] [id number] [address] [place] [id number] September, Diabetes E11.9 ; Bipolar I d isorder with depression F31.9 ; PTSD (post-traumatic stress disorder) F43.10 and Panic disorder with agoraphobia F40.01 [place] [address] [id number] [address] [place] [id number] September, Mood disorder F39 ; Schizoaf fective disorder, unspecified type F25.9 ; Arthritis M19.90 ; Tremor R25.1 ; Acute non-recurrent frontal sinusitis J01.10 and Blood in stool K92.1 [facility] [place] [address] [id number] [address] [place] [id number] September, [facility] [place] [address] [id number] [address] [place] [id number] September, Chronic obstructive pulmonar y disease, unspecified J44.9 [facility] [place] [address] [facility] [id number] [address] [place] [id number] September, Diabetes E11.9 [facility] [place] [address] [id number] [address] [place] [id number] Aug, Other bipolar disorder F31.8 9 and Anxiety disorder, unspecified F41.9 [facility] [place] [address] [id number] [address] [place] [id number] Aug, [facility] [place] [address] [id number] [address] [place] [id number] Aug, Diabetes E11.9 [facility] [place] [address] [id number] [address] [place] [id number] 18 Aug, 2015 [facility] [place] [address] [facility] [id number] [address] [place] [id number] 14 Aug, 2015 Diabetes E11.9 ; Fatigue R53 .83 and Dizziness R42 [facility] [place] [address] [id number] [address] [place] [id number] 13 Aug, 2015 Other bipolar disorder F31.8 9 [facility] [place] [address] [id number] [address] [place] [id number] 07 Aug, 2015 Generalized anxiety disorder F41.1 [facility] [place] [address] [id number] [address] [place] [id number] Aug, Other bipolar disorder F31.8 9 and Anxiety disorder, unspecified F41.9 [facility] [place] [address] [id number] [address] [place] [id number] Aug, [facility] [place] [address] [id number] [address] [place] [id number] Jul, [facility] [place] [address] [id number] [address] [place] [id number] Jul, [facility] [place] [address] [id number] [address] [place] [id number] Jul, Bronchitis J40 [facility] [place] [address] [facility] [id number] [address] [place] [id number] Jul, Anxiety disorder F41.9 [facility] [place] [address] [facility] [id number] [address] [place] [id number] Jul, Other bipolar disorder F31.8 9 and Anxiety disorder, unspecified F41.9 [facility] [place] [address] [facility] [id number] [address] [place] [id number] 18 Jul, 2015 Other bipolar disorder F31.8 9 and Fibromyalgia M79.7 [facility] [place] [address] [facility] [id number] [address] [place] [id number] Jul, [facility] [place] [address] [facility] [id number] [address] [place] [id number] Jul, [facility] [place] [address] [facility] [id number] [address] [place] [id number] Jul, [facility] [place] [address] [facility] [id number] [address] [place] [id number] 08 Jul, 2015 Other bipolar disorder F31.8 9 and Anxiety disorder, unspecified F41.9 [facility] [place] [address] [facility] [id number] [address] [place] [id number] 25 Jun, 2015 GERD (gastroesophageal reflu x disease) K21.9 [facility] [place] [address] [facility] [id number] [address] [place] [id number] Jun, [facility] [place] [address] [place] [id number] [address] [place] [id number] May, [facility] [place] [address] [address] May, Diabetes E11.9 ; Back pain M 54.9 ; GERD (gastroesophageal reflux disease) K21.9 ; Hypertension I10 and Peripheral neuropathy G62.9 [facility] [place] [address] [id number] Mar, [facility] [place] [address] [id number] Mar, [facility] [place] [address] [id number] Mar, Acute sinusitis J01.90 and O titis media, left H66.92 [facility] [place] [address] [id number] Feb, [facility] [place] [address] [id number] Feb, [facility] [place] [address] [id number] Feb, [facility] [place] [address] [id number] Feb, [facility] [place] [address] [id number] Jan, [facility] [place] [address] [id number] Jan, Diabetes 250.00 and Back higinio n 724.5 [facility] [place] [address] [place] [id number] [address] [place] [id number] Jan, [facility] [place] [address] [id number] Dec, Diabetes 250.00 ; Benign ess ential hypertension 401.1 and Allergic rhinitis 477.9 [facility] [place] [address] [facility] [id number] [address] [place] [id number] Dec, [facility] [place] [address] [facility] [id number] [address] [place] [id number] Dec, [facility] [place] [address] [place] [id number] [address] [place] [id number] Dec, Psychosis 298.9 [facility] [place] [address] [place] [id number] [address] [place] [id number] Dec, Medication side effect 995.2 0 and Generalized anxiety disorder 300.02 [facility] [place] [address] [place] [id number] [address] [place] [id number] Dec, Acquired cognitive dysfuncti on 294.9 [facility] [place] [address] [place] [id number] [address] [place] [id number] Dec, [facility] [place] [address] [place] [id number] [address] [place] [id number] Dec, Unspecified myalgia and myos itis 729.1 and Generalized anxiety disorder 300.02 [facility] [place] [address] [place] [id number] [address] [place] [id number] Nov, [facility] [place] [address] [place] [id number] [address] [place] [id number] Nov, [facility] [place] [address] [id number] [address] [place] [id number] Nov, [facility] [place] [address] [place] [id number] [address] [place] [id number] Nov, Upper respiratory infection 465.9 and Chronic airway obstruction, not elsewhere classified 496 [facility] [place] [address] [id number] [address] [place] [id number] Nov, Hyponatremia 276.1 [facility] [place] [address] [id number] [address] [place] [id number] Oct, [facility] [place] [address] [id number] [address] [place] [id number] 12 Oct, 2014 [facility] [place] [address] [facility] [id number] [address] [place] [id number] Oct, [facility] [place] [address] [facility] [id number] [address] [place] [id number] Oct, [facility] [place] [address] [facility] [id number] [address] [place] [id number] 04 Oct, 2014 Hyponatremia 276.1 [facility] [place] [address] [id number] [address] [place] [id number] 03 Oct, 2014 [facility] [place] [address] [facility] [id number] [address] [place] [id number] Oct, [facility] [place] [address] [facility] [id number] [address] [place] [id number] Oct, Generalized anxiety disorder 300.02 [facility] [place] [address] [facility] [id number] [address] [place] [address] Oct, Generalized anxiety disorder 300.02 and Diabetes 250.00 [facility] [place] [address] [id number] [address] [place] [id number] Aug, [facility] [place] [address] [facility] [id number] [address] [place] [id number] Aug, [facility] [place] [address] [facility] [id number] [address] [place] [id number] Jul, [facility] [place] [address] [id number] [address] [place] [id number] Jul, [facility] [place] [address] [facility] [id number] [address] [place] [id number] Jun, [facility] [place] [address] [facility] [id number] [address] [place] [id number] Jun, [facility] [place] [address] [facility] [id number] [address] [place] [id number] Jun, [facility] [address] [id number] [address] [place] [address], [place] [address] Jun, [facility] [address] [id number] [address] [place] [address], [place] [address] Jun, [facility] [address] [id number] [address] [place] [address], [place] [address] May, [facility] [address] [id number] [address] [place] [address], [place] [address] May, [facility] [address] [id number] [address] [place] [address], [place] [address] Apr, [facility] [address] [id number] [address] [place] [address], [place] [address] Apr, [facility] [address] [id number] [address] [place] [address], [place] [address] Apr, [facility] [place] [address] [id number] [address] [place] [address], [place] [address] Apr, [facility] [address] [id number] [address] [place] [address], [place] [address] Apr, [facility] [address] [id number] [address] [place] [address], [place] [address] Apr, [facility] [address] [id number] [address] [place] [address], [place] [address] Apr, [facility] [address] [id number] [address] [place] [address], [place] [address] Apr, [facility] [address] [id number] [address] [place] [address], [place] [address] Feb, [facility] [address] [id number] [address] [place] [address], [place] [address] Feb, [facility] [address] [id number] [address] [place] [address], [place] [address] Jan, [facility] [address] [id number] [address] [place] [address], [place] [address] Jan, [facility] [address] [id number] [address] [place] [address], [place] [address] Dec, [facility] [address] [id number] [address] [place] [address], [place] [address] Dec, [facility] [address] [id number] [address] [place] [address], [place] [address] Dec, [facility] [address] [id number] [address] [place] [address], [place] [address] Nov, [facility] [address] [id number] [address] [place] [address], [place] [address] Nov, [facility] [address] [id number] [address] [place] [address], [place] [address] Nov, [facility] [place] [address] [id number] [address] [place] [address], [place] [address] Oct, [facility] [address] [id number] [address] [place] [address], [place] [address] Oct, [facility] [address] [id number] [address] [place] [address], [place] [address] Oct, [facility] [address] [id number] [address] [place] [address], [place] [address] September, [facility] [place] [address] [id number] [address] [place] [address], [place] [address] September, [facility] [address] [id number] [address] [place] [address], [place] [address] September, [facility] [address] [id number] [address] [place] [address], [place] [address] Aug, [facility] [address] [id number] [address] [place] [address], [place] [address] Aug, [facility] [address] [id number] [address] [place] [address], [place] [address] Aug, [facility] [address] [id number] [address] [place] [address], [place] [address] 16 Aug, 2011 [facility] [address] [id number] [address] [place] [address], [place] [address] Jul, [facility] [address] [id number] [address] [place] [address], [place] [address] 21 Jun, 2011 [facility] [address] [id number] [address] [place] [address], [place] [address] 14 Jun, 2011 [facility] [address] [id number] [address] [place] [address], [place] [address] 13 Jun, 2011 [facility] [address] [id number] [address] [place] [address], [place] [address] 07 Jun, 2011 [facility] [address] [id number] [address] [place] [address], [place] [address] 03 Jun, 2011 [facility] [address] [id number] [address] [place] [address], [place] [address] May, [facility] [address] [id number] [address] [place] [address], [place] [address] May, [facility] [address] [id number] [address] [place] [address], [place] [address] May, [facility] [address] [id number] [address] [place] [address], [place] [address] May, [facility] [place] [address] [id number] [address] [place] [address], [place] [address] Apr, [facility] [address] [id number] [address] [place] [address], [place] [address] Apr, [facility] [address] [id number] [address] [place] [address], [place] [address] 05 Apr, 2011 [facility] [address] [id number] [address] [place] [address], [place] [address] Mar, [facility] [address] [id number] [address] [place] [address], [place] [address] Mar, [facility] [place] [address] [id number] [address] [place] [id number] Mar, [facility] [place] [address] [id number] [address] [place] [id number] Feb, [facility] [place] [address] [id number] [address] [place] [id number] Feb, [facility] [place] [address] [id number] [address] [place] [id number] Feb, [facility] [place] [address] [id number] [address] [place] [id number] Nov, [facility] [place] [address] [id number] [address] [place] [id number] September, [facility] [place] [address] [id number] [address] [place] [id number] Aug, [facility] [place] [address] [id number] [address] [place] [id number] Jul, [facility] [place] [address] [id number] [address] [place] [id number] May, [facility] [place] [address] [id number] [address] [place] [id number] Apr, [facility] [place] [address] [id number] [address] [place] [id number] Apr, [facility] [place] [address] [id number] [address] [place] [id number] Apr, [facility] [place] [address] [id number] [address] [place] [id number] Apr, [facility] [place] [address] [id number] [address] [place] [id number] Apr, IMMUNIZATIONS No Known Immunizations SOCIAL HISTORY [...]
--- OUTSIDE RECORDS SUMMARY | 2019-07-17 11:13 | XMS REPORT ---
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 Name Role Phone JOHANNGISELEYVON Unavailable PROBLEMS Type Condition ICD9-CM Code DOA12-OP Code Onset Dates Condition S tatus SNOMED Code Problem Back pain M54.9 Active 363001565 Problem Diabetes E11.9 Active 21658242 Problem GERD (gastroesophageal reflux disease) K21.9 Active 991235255 Problem Hypertension I10 Active 6065899 3 Problem Anxiety disorder, unspecified F41.9 Active 135181806 Problem Other bipolar disorder F31.89 Active 93393831 Problem Fibromyalgia M79.7 Active 5787545 7 Problem Panic disorder with agoraphobia F40.01 Active 39308901 Problem Panlobular emphysema J43.1 Active 8970180 Problem Chronic obstructive pulmonary disease, unspecified J44.9 Active 25461195 Problem Akathisia G25.71 Active 600783870 Problem Lumbago with sciatica, left side M54.42 Active 023756327 Problem Migraine without aura and without status migrain osus, not intractable G43.009 Active 997541404 Problem Fibrocystic disease of right breast N60.11 Active 53279092 Problem Fibrocystic disease of left breast N60.12 Active 34842602 Problem Slow transit constipation K59.01 Acti ve 93526286 Problem Essential tremor G25.0 Active 609 569650 Problem Bipolar 1 disorder, depressed, moderate F31.32 Active 44324935 Problem Other chronic pain G89.29 Active 8 2335347 Problem Lumbago with sciatica, right side M54.41 Active 419898473 Problem Irritable bowel syndrome with constipation K58.1 Active 870296878 Problem Arthritis M19.90 Active 6527492 Problem Schizoaffective disorder, bipolar type F25.0 Active 70327086 Problem Irritable bowel syndrome with both constipation and diarrh ea K58.2 Active 13251672 Problem Attention deficit hyperactiv ity disorder (ADHD), predominantly inattentive type F90.0 Active 89533697 Problem Bipolar I disorder with depression F31.9 Active 10134659 Problem Chronic post-traumatic stress disorder (PTSD) F43. 12 Active 704200922 Problem Bipolar affective disorder, remission status unspecified F31.9 Active 69767221 Problem Mild persistent asthma without complication J45.30 Active 619428148 Problem Moderate persistent asthma without complication J4 5.40 Active 557738702 Problem Acute non-recurrent maxillary sinusitis J01.00 Active 27161779 Problem Bipolar 1 disorder, depressed, partial remission F 31.75 Active 37116983 ALLERGIES No Information ENCOUNTERS Encounter Location Date Diagnosis [facility] [address] [id number] [address] [place] [address] Nov, [facility] [address] [id number] [address] [place] [address] Nov, [facility] [address] [facility] [id number] [address] [place] [address] Nov, [facility] [address] [id number] [address] [place] [address] Nov, [facility] [address] [facility] [id number] [address] [place] [address] Nov, [facility] [address] [id number] [address] [place] [address] Nov, [facility] [address] [id number] [address] [place] [address] Nov, [facility] [address] [id number] [address] [place] [address] Nov, [facility] [address] [id number] [address] [place] [address] Nov, [facility] [address] [facility] [id number] [address] [place] [address] Nov, Mild persistent asthma witho ut complication J45.30 and Irritable bowel syndrome with both constipation and diarrhea K58.2 [facility] [address] [id number] [address] [place] [address] Nov, [facility] [address] [id number] [address] [place] [address] Oct, [facility] [address] [id number] [address] [place] [address] Oct, [facility] [address] [facility] [id number] [address] [place] [address] Oct, Type 2 diabetes mellitus wit h diabetic neuropathy, unspecified whether rn long term care insulin use E11.40 ; Diabetes E11.9 ; Slow transit constipation K59.01 ; Edema of both legs R60.0 and Dysfunction of right eustachian tube H69.81 [facility] [address] [id number] [address] [place] [address] Oct, Frequent headaches R51 [facility] [address] [id number] [address] [place] [address] Oct, [facility] [address] [id number] [address] [place] [address] Oct, [facility] [address] [facility] [id number] [address] [place] [address] Oct, [facility] [address] [facility] [id number] [address] [place] [address] Oct, [facility] [address] [facility] [id number] [address] [place] [address] Oct, [facility] [address] [id number] [address] [place] [address] Oct, [facility] [address] [id number] [address] [place] [address] Oct, [facility] [address] [facility] [id number] [address] [place] [address] Oct, [facility] [address] [id number] [address] [place] [address] September, Frequent headaches R51 [facility] [address] [facility] [id number] [address] [place] [address] September, Bilateral otitis media with effusion H65.93 ; Dizziness R42 and Essential tremor G25.0 [facility] [address] [id number] [address] [place] [address] September, Chronic obstructive pulmonar y disease, unspecified COPD type J44.9 [facility] [address] [facility] [id number] [address] [place] [address] September, Chronic obstructive pulmonar y disease, unspecified COPD type J44.9 [facility] [address] [place] [id number] [address] [place] [address] September, Migraine without aura and wi thout status migrainosus, not intractable G43.009 [facility] [address] [place] [id number] [address] [place] [address] September, [facility] [address] [facility] [id number] [address] [place] [address] September, [facility] [address] [facility] [id number] [address] [place] [address] September, [facility] [address] [facility] [id number] [address] [place] [address] September, Frequent headaches R51 [facility] [address] [facility] [id number] [address] [place] [address] Aug, [facility] [address] [facility] [id number] [address] [place] [address] Aug, Breast mass, right N63.10 [facility] [address] [place] [id number] [address] [place] [address] Aug, Breast lump N63.0 [facility] [address] [facility] [id number] [address] [place] [address] Aug, [facility] [address] [place] [id number] [address] [place] [address] Aug, Bipolar affective disorder, remission status unspecified F31.9 and Diabetes E11.9 [place] [address] [facility] [id number] [address] [place] [address] Aug, Diabetes E11.9 ; Schizoaffec tive disorder, bipolar type F25.0 ; Pharyngitis due to other organism J02.8 ; Panlobular emphysema J43.1 and Irritable bowel syndrome with both constipation and diarrhea K58.2 [place] [address] [id number] [address] [place] [address] Aug, Abnormal mammogram R92.8 [place] [address] [facility] [id number] [address] [place] [address] Aug, [place] [address] [facility] [id number] [address] [place] [address] Aug, Bipolar 1 disorder, depresse d, moderate F31.32 ; Panic disorder with agoraphobia F40.01 and Chronic post-traumatic stress disorder (PTSD) F43.12 [place] [address] [facility] [id number] [address] [place] [address] Aug, [place] [address] [facility] [id number] [address] [place] [address] Aug, [place] [address] [facility] [id number] [address] [place] [address] Aug, [place] [address] [facility] [id number] [address] [place] [address] Jul, [place] [address] [facility] [id number] [address] [place] [address] Jul, Mild persistent asthma witho ut complication J45.30 [place] [address] [facility] [id number] [address] [place] [address] Jul, Mild persistent asthma witho ut complication J45.30 [place] [address] [facility] [id number] [address] [place] [address] Jul, Bipolar affective disorder, remission status unspecified F31.9 ; Diabetes E11.9 and Irritable bowel syndrome with constipation K58.1 [facility] [address] [id number] [address] [place] [address] Jul, [facility] [address] [id number] [address] [place] [address] Jul, [facility] [address] [facility] [id number] [address] [place] [address] Jul, Frequent headaches R51 [facility] [address] [id number] [address] [place] [address] Jul, [facility] [address] [facility] [id number] [address] [place] [address] Jul, [facility] [address] [facility] [id number] [address] [place] [address] Jul, [facility] [address] [facility] [id number] [address] [place] [address] Jul, Frequent headaches R51 ; Fib rocystic disease of left breast N60.12 ; Fibrocystic disease of right breast N60.11 and Diabetes E11.9 [facility] [address] [facility] [id number] [address] [place] [address] Jul, [facility] [address] [facility] [id number] [address] [place] [address] Jul, [facility] [address] [facility] [id number] [address] [place] [address] Jun, Exudative tonsillitis J03.90 [facility] [address] [facility] [id number] [address] [place] [address] Jun, [facility] [address] [place] [id number] [address] [place] [address] Jun, [facility] [address] [place] [id number] [address] [place] [address] 15 Feb, 2018 Mild persistent asthma witho ut complication J45.30 ; Chronic obstructive pulmonary disease, unspecified COPD type J44.9 and Exudative tonsillitis J03.90 [facility] [address] [address] 13 Jun, 2017 Encounter for immunization Z 23 [facility] [address] [facility] [id number] [place] [address] 12 Jun, 2017 [facility] [address] [address] Jun, [facility] [address] [address] Jun, [facility] [address] [address] 06 Jun, 2017 Tonsillitis J03.90 [facility] [address] [address] 05 Jun, 2017 [facility] [address] [address] 03 Jun, 2017 Acute non-recurrent maxillar y sinusitis J01.00 [place] [address] [address] 02 Jun, 2017 [facility] [address] [address] May, [facility] [address] [address] May, [facility] [address] [address] May, GERD (gastroesophageal reflu x disease) K21.9 [facility] [address] [address] May, Migraine without aura and wi thout status migrainosus, not intractable G43.009 [facility] [address] [address] May, [facility] [address] [facility] [id number] [address] [place] [address] May, [facility] [address] [facility] [id number] [address] [place] [address] May, Panlobular emphysema J43.1 a nd Acute non-recurrent maxillary sinusitis J01.00 [facility] [address] [facility] [id number] [address] [place] [address] May, Bipolar 1 disorder, depresse d, moderate F31.32 ; Panic disorder with agoraphobia F40.01 and Akathisia G25.71 [place] [address] [facility] [id number] [address] [place] [address] Apr, [facility] [address] [place] [id number] [address] [place] [address] Apr, [facility] [address] [place] [id number] [address] [place] [address] Apr, Acute non-recurrent maxillar y sinusitis J01.00 [facility] [address] [facility] [id number] [address] [place] [address] 07 Apr, 2017 Panlobular emphysema J43.1 [facility] [address] [place] [id number] [address] [place] [address] 04 Apr, 2017 [facility] [address] [facility] [id number] [address] [place] [address] Apr, Sore throat J02.9 and Exudat minoo tonsillitis J03.90 [facility] [address] [facility] [id number] [address] [place] [address] Mar, [facility] [address] [place] [id number] [address] [place] [address] 15 Mar, 2017 Acute non-recurrent maxillar y sinusitis J01.00 [facility] [address] [place] [id number] [address] [place] [address] Mar, [facility] [address] [facility] [id number] [address] [place] [address] 09 Mar, 2017 Panlobular emphysema J43.1 a nd Diabetes E11.9 [facility] [address] [facility] [id number] [address] [place] [address] 06 Mar, 2017 [facility] [address] [facility] [id number] [address] [place] [address] Feb, Wheezing R06.2 and Acute rec urrent pansinusitis J01.41 [facility] [address] [facility] [id number] [address] [place] [address] Feb, [facility] [address] [place] [id number] [address] [place] [address] Feb, Acute non-recurrent maxillar y sinusitis J01.00 [facility] [address] [place] [id number] [address] [place] [address] Feb, Chronic obstructive pulmonar y disease, unspecified J44.9 [facility] [address] [place] [id number] [address] [place] [address] 02 Feb, 2017 Hypoxemia R09.02 and Chronic obstructive pulmonary disease, unspecified J44.9 [facility] [address] [place] [id number] [address] [place] [address] 28 Jan, 2017 Bipolar 1 disorder, depresse d, moderate F31.32 ; Panic disorder with agoraphobia F40.01 ; Chronic post-traumatic stress disorder (PTSD) F43.12 ; Diabetes E11.9 and Moderate persistent asthma without complication J45.40 [facility] [address] [facility] [id number] [address] [place] [address] Jan, [facility] [address] [place] [id number] [address] [place] [address] 19 Jan, 2017 Acute non-recurrent maxillar y sinusitis J01.00 [facility] [address] [place] [id number] [address] [place] [address] Jan, [facility] [address] [id number] [address] [place] [address] Jan, [facility] [address] [id number] [address] [place] [address] Jan, Moderate persistent asthma w ithout complication J45.40 and Hypoxemia R09.02 [facility] [address] [id number] [address] [place] [address] Jan, Moderate persistent asthma w ithout complication J45.40 and Hypoxemia R09.02 [facility] [address] [id number] [address] [place] [address] Jan, [facility] [address] [id number] [address] [place] [address] Dec, Acute non-recurrent maxillar y sinusitis J01.00 [facility] [address] [id number] [address] [place] [address] Dec, Chronic obstructive pulmonar y disease, unspecified J44.9 [facility] [address] [id number] [address] [place] [address] Dec, [facility] [address] [id number] [address] [place] [address] Dec, Mild persistent asthma witho ut complication J45.30 and Other chronic pain G89.29 [facility] [address] [id number] [address] [place] [address] Nov, [facility] [address] [id number] [address] [place] [address] Nov, Acute non-recurrent maxillar y sinusitis J01.00 [facility] [address] [id number] [address] [place] [address] Nov, [facility] [address] [id number] [address] [place] [address] Nov, [facility] [address] [id number] [address] [place] [address] Oct, [facility] [address] [id number] [address] [place] [address] Oct, Bipolar 1 disorder, depresse d, partial remission F31.75 ; Panic disorder with agoraphobia F40.01 and Chronic post-traumatic stress disorder (PTSD) F43.12 [place] [address] [facility] [id number] [address] [place] [address] Oct, Acute non-recurrent maxillar y sinusitis J01.00 [place] [address] [id number] [address] [place] [address] Oct, [place] [address] [facility] [id number] [address] [place] [address] Oct, Diabetes E11.9 [place] [address] [facility] [id number] [address] [place] [address] September, Diabetes E11.9 [place] [address] [facility] [id number] [address] [place] [address] September, Diabetes E11.9 and Sinus tac hycardia R00.0 [place] [address] [facility] [id number] [address] [place] [address] September, [place] [address] [place] [id number] [address] [place] [address] September, [place] [address] [id number] [address] [place] [address] Aug, Diabetes E11.9 and Lumbago w ith sciatica, right side M54.41 [place] [address] [id number] [address] [place] [address] Aug, [place] [address] [place] [id number] [address] [place] [address] Jul, Bipolar 1 disorder, depresse d, moderate F31.32 ; Panic disorder with agoraphobia F40.01 and Chronic post-traumatic stress disorder (PTSD) F43.12 [facility] [address] [id number] [address] [place] [address] Jul, Sore throat J02.9 [facility] [address] [id number] [address] [place] [address] 16 Jul, 2016 [facility] [address] [facility] [id number] [address] [place] [address] 15 Jul, 2016 [facility] [address] [id number] [address] [place] [address] 09 Jul, 2016 [facility] [address] [facility] [id number] [address] [place] [address] 06 Jul, 2016 [facility] [address] [facility] [id number] [address] [place] [address] Jul, Sore throat J02.9 and Pharyn gitis, unspecified etiology J02.9 [facility] [address] [id number] [address] [place] [address] 27 Jun, 2016 [facility] [address] [facility] [id number] [address] [place] [address] 23 Jun, 2016 Diabetes E11.9 [facility] [address] [facility] [id number] [address] [place] [id number] 20 Jun, 2016 [facility] [address] [facility] [id number] [address] [place] [address] 16 Jun, 2016 [facility] [address] [facility] [id number] [address] [place] [address] Jun, [facility] [address] [facility] [id number] [address] [place] [address] Jun, [facility] [address] [facility] [id number] [address] [place] [address] 16 Jun, 2016 [facility] [address] [facility] [id number] [address] [place] [phone] 15 Jun, 2016 [facility] [address] [facility] [id number] [address] [place] [phone] 10 Jun, 2016 [facility] [address] [facility] [id number] [address] [place] [phone] Jun, [place] [address] [facility] [id number] [address] [place] [phone] May, Diabetes E11.9 ; Bipolar I d isorder with depression F31.9 ; Other chronic pain G89.29 ; Acute recurrent maxillary sinusitis J01.01 and Anxiety disorder, unspecified F41.9 [place] [address] [address] [facility] [id number] [address] [place] [phone] May, [place] [address] [address] [facility] [id number] [address] [place] [phone] May, Diabetes E11.9 ; Bipolar I d isorder with depression F31.9 ; Anxiety disorder, unspecified F41.9 ; Other chronic pain G89.29 and Acute recurrent maxillary sinusitis J01.01 [place] [address] [address] [facility] [id number] [address] [place] [phone] May, [place] [address] [address] [facility] [id number] [address] [place] [phone] May, Attention deficit hyperactiv ity disorder (ADHD), predominantly inattentive type F90.0 [place] [address] [address] [place] [id number] [address] [place] [phone] May, [place] [address] [address] [facility] [id number] [address] [place] [phone] Apr, Attention deficit hyperactiv ity disorder (ADHD), predominantly inattentive type F90.0 and Non-seasonal allergic rhinitis due to other allergic trigger J30.89 [place] [address] [address] [facility] [id number] [address] [place] [phone] 15 Apr, 2016 Bipolar 1 disorder, depresse d, moderate F31.32 ; Panic disorder with agoraphobia F40.01 and Chronic post-traumatic stress disorder (PTSD) F43.12 [place] [address] [address] [facility] [id number] [address] [place] [phone] Apr, Dental examination Z01.20 [place] [address] [address] [facility] [id number] [address] [place] [phone] Mar, [place] [address] [address] [facility] [id number] [address] [place] [phone] Mar, [place] [address] [address] [place] [id number] [address] [place] [phone] Mar, Bipolar I disorder with depr ession F31.9 and Anxiety disorder, unspecified F41.9 [place] [address] [address] [place] [id number] [place] [phone] Mar, Panic disorder with agorapho syd F40.01 ; Bipolar 1 disorder, depressed, moderate F31.32 and Chronic post-traumatic stress disorder (PTSD) F43.12 [place] [address] [address] [place] [id number] [address] [place] [phone] Mar, [place] [address] [address] [place] [id number] [address] [place] [address] Mar, Dental caries K02.9 [place] [address] [place] [id number] [address] [place] [id number] 24 Feb, 2016 Lumbago with sciatica, left side M54.42 ; Lumbago with sciatica, right side M54.41 and Other chronic pain G89.29 [place] [address] [place] [id number] [address] [place] [address] Feb, [place] [address] [facility] [id number] [address] [place] [id number] 14 Feb, 2016 [place] [address] [place] [id number] [address] [place] [address] Feb, Bipolar I disorder with depr ession F31.9 ; PTSD (post-traumatic stress disorder) F43.10 and Mood disorder F39 [place] [address] [place] [id number] [address] [place] [address] Feb, [facility] [address] [place] [id number] [address] [place] [address] Feb, Dental examination Z01.20 [facility] [address] [place] [id number] [address] [place] [address] 07 Feb, 2016 [facility] [address] [place] [id number] [place] [address] Feb, Acute bronchitis, unspecifie d organism J20.9 [place] [address] [place] [id number] [address] [place] [address] Jan, Mood disorder F39 ; Migraine without aura and without status migrainosus, not intractable G43.009 ; Irritable bowel syndrome, unspecified type K58.9 ; Diabetes E11.9 and Encounter for immunization Z23 [place] [address] [id number] 15 Jan, 2016 [place] [address] [address] Jan, [place] [address] [address] Jan, [place] [address] [address] Jan, [place] [address] [address] Jan, [place] [address] [address] Dec, Bipolar I disorder with depr ession F31.9 ; PTSD (post-traumatic stress disorder) F43.10 and Panic disorder with agoraphobia F40.01 [place] [address] [place] [id number] [address] [place] [address] Dec, Chronic obstructive pulmonar y disease, unspecified COPD type J44.9 ; Tremor R25.1 and Anxiety F41.9 [place] [address] [id number] [address] [place] [address] Dec, [facility] [address] [id number] [address] [place] [phone] Nov, Tremors of nervous system R2 5.1 and Cramping of feet R25.2 [facility] [address] [id number] [address] [place] [address] Nov, [facility] [address] [id number] [address] [place] [address] Nov, [facility] [address] [id number] [address] [place] [phone] Oct, Chronic obstructive pulmonar y disease, unspecified J44.9 [facility] [address] [id number] [address] [place] [address] Oct, [facility] [address] [id number] [address] [place] [address] Oct, Tremor R25.1 [facility] [address] [id number] [address] [place] [address] Oct, Bipolar I disorder with depr ession F31.9 ; Diabetes E11.9 ; PTSD (post-traumatic stress disorder) F43.10 and Panic disorder with agoraphobia F40.01 [facility] [address] [id number] [address] [place] [address] Oct, Mood disorder F39 [facility] [address] [id number] [address] [place] [address] September, [facility] [address] [id number] [address] [place] [address] September, Diabetes E11.9 ; Bipolar I d isorder with depression F31.9 ; PTSD (post-traumatic stress disorder) F43.10 and Panic disorder with agoraphobia F40.01 [facility] [address] [facility] [id number] [address] [place] [address] September, Mood disorder F39 ; Schizoaf fective disorder, unspecified type F25.9 ; Arthritis M19.90 ; Tremor R25.1 ; Acute non-recurrent frontal sinusitis J01.10 and Blood in stool K92.1 [facility] [address] [id number] [address] [place] [address] September, [facility] [address] [facility] [id number] [address] [place] [address] September, Chronic obstructive pulmonar y disease, unspecified J44.9 [facility] [address] [facility] [id number] [address] [place] [address] September, Diabetes E11.9 [place] [address] [facility] [id number] [address] [place] [address] Aug, Other bipolar disorder F31.8 9 and Anxiety disorder, unspecified F41.9 [facility] [address] [facility] [id number] [address] [place] [address] Aug, [facility] [address] [facility] [id number] [address] [place] [address] Aug, Diabetes E11.9 [place] [address] [address] [facility] [id number] [address] [place] [address] 18 Aug, 2015 [facility] [address] [facility] [id number] [address] [place] [address] 14 Aug, 2015 Diabetes E11.9 ; Fatigue R53 .83 and Dizziness R42 [facility] [address] [id number] [address] [place] [address] 13 Aug, 2015 Other bipolar disorder F31.8 9 [place] [address] [facility] [id number] [address] [place] [address] 07 Aug, 2015 Generalized anxiety disorder F41.1 [facility] [address] [facility] [id number] [address] [place] [address] 07 Aug, 2015 Other bipolar disorder F31.8 9 and Anxiety disorder, unspecified F41.9 [facility] [address] [id number] [address] [place] [address] Aug, [facility] [address] [facility] [id number] [address] [place] [address] Jul, [facility] [address] [facility] [id number] [address] [place] [address] Jul, [facility] [address] [facility] [id number] [address] [place] [address] Jul, Bronchitis J40 [facility] [address] [facility] [id number] [address] [place] [address] Jul, Anxiety disorder F41.9 [facility] [address] [facility] [id number] [address] [place] [address] Jul, Other bipolar disorder F31.8 9 and Anxiety disorder, unspecified F41.9 [facility] [address] [facility] [id number] [address] [place] [address] Jul, Other bipolar disorder F31.8 9 and Fibromyalgia M79.7 [facility] [address] [facility] [id number] [address] [place] [address] Jul, [facility] [address] [facility] [id number] [address] [place] [address] Jul, [facility] [address] [facility] [id number] [address] [place] [address] Jul, [facility] [address] [facility] [id number] [address] [place] [address] Jul, Other bipolar disorder F31.8 9 and Anxiety disorder, unspecified F41.9 [facility] [address] [facility] [id number] [address] [place] [address] Jun, GERD (gastroesophageal reflu x disease) K21.9 [facility] [address] [facility] [id number] [address] [place] [address] Jun, [facility] [address] [facility] [id number] [address] [place] [address] May, [facility] [address] [facility] [id number] [address] [place] [address] May, Diabetes E11.9 ; Back pain M 54.9 ; GERD (gastroesophageal reflux disease) K21.9 ; Hypertension I10 and Peripheral neuropathy G62.9 [facility] [address] [facility] [id number] [address] [place] [address] Mar, [facility] [address] [place] [id number] [place] [address] Mar, [facility] [address] [address] Mar, Acute sinusitis J01.90 and O titis media, left H66.92 [facility] [address] [address] Feb, [facility] [address] [place] [id number] [place] [address] Feb, [facility] [address] [place] [id number] [place] [address] Feb, [facility] [address] [address] Feb, [facility] [address] [address] Jan, [facility] [address] [place] [id number] [place] [address] Jan, Diabetes 250.00 and Back higinio n 724.5 [facility] [address] [place] [id number] [place] [address] Jan, [facility] [address] [place] [id number] [place] [address] Dec, Diabetes 250.00 ; Benign ess ential hypertension 401.1 and Allergic rhinitis 477.9 [facility] [address] [place] [id number] [address] [place] [address] Dec, [facility] [address] [id number] [address] [place] [address] Dec, [facility] [address] [facility] [id number] [address] [place] [address] Dec, Psychosis 298.9 [facility] [address] [facility] [id number] [address] [place] [address] Dec, Medication side effect 995.2 0 and Generalized anxiety disorder 300.02 [facility] [address] [id number] [address] [place] [address] Dec, Acquired cognitive dysfuncti on 294.9 [facility] [address] [facility] [id number] [address] [place] [address] Dec, [facility] [address] [facility] [id number] [address] [place] [address] Dec, Unspecified myalgia and myos itis 729.1 and Generalized anxiety disorder 300.02 [facility] [address] [facility] [id number] [address] [place] [address] Nov, [facility] [address] [facility] [id number] [address] [place] [address] Nov, [facility] [address] [facility] [id number] [address] [place] [address] Nov, [facility] [address] [facility] [id number] [address] [place] [address] Nov, Upper respiratory infection 465.9 and Chronic airway obstruction, not elsewhere classified 496 [facility] [address] [facility] [id number] [address] [place] [address] Nov, Hyponatremia 276.1 [facility] [address] [facility] [id number] [address] [place] [address] Oct, [facility] [address] [facility] [id number] [address] [place] [address] Oct, [facility] [address] [facility] [id number] [address] [place] [address] Oct, [facility] [address] [facility] [id number] [address] [place] [address] Oct, [facility] [address] [facility] [id number] [address] [place] [address] 04 Oct, 2014 Hyponatremia 276.1 [facility] [address] [facility] [id number] [address] [place] [address] 03 Oct, 2014 [facility] [address] [facility] [id number] [address] [place] [address] Oct, [facility] [address] [facility] [id number] [address] [place] [address] Oct, Generalized anxiety disorder 300.02 [facility] [address] [facility] [id number] [address] [place] [address] Oct, Generalized anxiety disorder 300.02 and Diabetes 250.00 [facility] [address] [facility] [id number] [address] [place] [address] Aug, [facility] [address] [facility] [id number] [address] [place] [address] Aug, [facility] [address] [facility] [id number] [address] [place] [address] Jul, [facility] [address] [facility] [id number] [address] [place] [address] Jul, [facility] [address] [facility] [id number] [address] [place] [address] Jun, [facility] [address] [facility] [id number] [address] [place] [address] Jun, [facility] [address] [facility] [id number] [address] [place] [address] Jun, [facility] [address] [facility] [id number] [address] [place] [address] Jun, [facility] [address] [id number] [address] [place] [address], [place] [address] Jun, [facility] [address] [id number] [address] [place] [address], [place] [address] May, [facility] [address] [id number] [address] [place] [address], [place] [address] May, [facility] [address] [id number] [address] [place] [address], [place] [address] Apr, [facility] [address] [id number] [address] [place] [address], [place] [address] Apr, [facility] [address] [id number] [address] [place] [address], [place] [address] Apr, [facility] [address] [id number] [address] [place] [address], [place] [address] Apr, [facility] [address] [id number] [address] [place] [address], [place] [address] Apr, [facility] [address] [id number] [address] [place] [address], [place] [address] Apr, [facility] [address] [id number] [address] [place] [address], [place] [address] Apr, [facility] [address] [id number] [address] [place] [address], [place] [address] Apr, [facility] [address] [id number] [address] [place] [address], [place] [address] Feb, [facility] [address] [id number] [address] [place] [address], [place] [address] Feb, [facility] [address] [id number] [address] [place] [address], [place] [address] Jan, [facility] [address] [id number] [address] [place] [address], [place] [address] 06 Jan, 2013 [facility] [address] [id number] [address] [place] [address], [place] [address] Dec, [facility] [address] [id number] [address] [place] [address], [place] [address] Dec, [facility] [address] [id number] [address] [place] [address], [place] [address] Dec, [facility] [address] [id number] [address] [place] [address], [place] [address] Nov, [facility] [address] [id number] [address] [place] [address], [place] [address] Nov, [facility] [address] [id number] [address] [place] [address], [place] [address] Nov, [facility] [address] [id number] [address] [place] [address], [place] [address] Oct, [facility] [address] [id number] [address] [place] [address], [place] [address] Oct, [facility] [address] [id number] [address] [place] [address], [place] [address] Oct, [facility] [address] [id number] [address] [place] [address], [place] [address] September, [facility] [address] [id number] [address] [place] [address], [place] [address] September, [facility] [address] [id number] [address] [place] [address], [place] [address] September, [facility] [address] [id number] [address] [place] [address], [place] [address] Aug, [facility] [address] [id number] [address] [place] [address], [place] [address] Aug, [facility] [address] [id number] [address] [place] [address], [place] [address] Aug, [facility] [address] [id number] [address] [place] [address], [place] [address] 16 Aug, 2011 [facility] [address] [id number] [address] [place] [address], [place] [address] Jul, [facility] [address] [id number] [address] [place] [address], [place] [address] 21 Jun, 2011 [facility] [address] [id number] [address] [place] [address], [place] [address] 14 Jun, 2011 [facility] [address] [id number] [address] [place] [address], [place] [address] 13 Jun, 2011 [facility] [address] [id number] [address] [place] [address], [place] [address] 07 Jun, 2011 [facility] [address] [id number] [address] [place] [address], [place] [address] 03 Jun, 2011 [facility] [address] [id number] [address] [place] [address], [place] [address] May, [facility] [address] [id number] [address] [place] [address], [place] [address] May, [facility] [address] [id number] [address] [place] [address], [place] [address] May, [facility] [address] [id number] [address] [place] [address], [place] [address] 04 May, 2011 [facility] [address] [id number] [address] [place] [address], [place] [address] Apr, [facility] [address] [id number] [address] [place] [address], [place] [address] Apr, [facility] [address] [id number] [address] [place] [address], [place] [address] 05 Apr, 2011 [facility] [address] [id number] [address] [place] [address], [place] [address] Mar, [facility] [address] [id number] [address] [place] [address], [place] [address] Mar, [facility] [address] [id number] [address] [place] [address] 09 Mar, 2011 [facility] [address] [id number] [address] [place] [address] Feb, [facility] [address] [id number] [address] [place] [address] Feb, [facility] [address] [id number] [address] [place] [address] Feb, [facility] [address] [id number] [address] [place] [address] Nov, [facility] [address] [id number] [address] [place] [address] September, [facility] [address] [id number] [address] [place] [address] Aug, [facility] [address] [id number] [address] [place] [address] Jul, [facility] [address] [id number] [address] [place] [address] May, [facility] [address] [id number] [address] [place] [address] Apr, [facility] [address] [id number] [address] [place] [address] Apr, [facility] [address] [id number] [address] [place] [id number] Apr, [facility] [address] [id number] [address] [place] [id number] Apr, [facility] [address] [id number] [address] [place] [id number] Apr, IMMUNIZATIONS No Known Immunizations SOCIAL HISTORY Never Assessed REASON FOR VISIT ativan 08/05/2017 PLAN OF CARE VITAL SIGNS MEDICATIONS Medication [...]
--- OUTSIDE RECORDS SUMMARY | 2019-07-17 11:14 | XMS REPORT ---
Author Author Sujey MEDINA Organization [facility] Address [address] [place] [address] Care Team Providers Care Cigarette Stamper Name Role Phone JAKI MEDNIA Unavailable PROBLEMS Type Condition ICD9-CM Code ZOX42-WL Code Onset Dates Condition S tatus SNOMED Code Problem Back pain M54.9 Active 989670158 Problem Diabetes E11.9 Active 83150582 Problem GERD (gastroesophageal reflux disease) K21.9 Active 486522114 Problem Hypertension I10 Active 3570352 3 Problem Anxiety disorder, unspecified F41.9 Active 125497757 Problem Other bipolar disorder F31.89 Active 97523671 Problem Fibromyalgia M79.7 Active 0221097 7 Problem Panic disorder with agoraphobia F40.01 Active 50376073 Problem Panlobular emphysema J43.1 Active 1687340 Problem Chronic obstructive pulmonary disease, unspecified J44.9 Active 95860011 Problem Akathisia G25.71 Active 533773044 Problem Lumbago with sciatica, left side M54.42 Active 561285359 Problem Migraine without aura and without status migrain osus, not intractable G43.009 Active 325421314 Problem Fibrocystic disease of right breast N60.11 Active 94207569 Problem Fibrocystic disease of left breast N60.12 Active 63973650 Problem Slow transit constipation K59.01 Acti ve 11425730 Problem Essential tremor G25.0 Active 609 693870 Problem Bipolar 1 disorder, depressed, moderate F31.32 Active 26510735 Problem Other chronic pain G89.29 Active 8 6393845 Problem Lumbago with sciatica, right side M54.41 Active 374089651 Problem Irritable bowel syndrome with constipation K58.1 Active 376586245 Problem Arthritis M19.90 Active 7782833 Problem Schizoaffective disorder, bipolar type F25.0 Active 78893903 Problem Irritable bowel syndrome with both constipation and diarrh ea K58.2 Active 96382256 Problem Attention deficit hyperactiv ity disorder (ADHD), predominantly inattentive type F90.0 Active 25811596 Problem Bipolar I disorder with depression F31.9 Active 70797716 Problem Chronic post-traumatic stress disorder (PTSD) F43. 12 Active 879656709 Problem Bipolar affective disorder, remission status unspecified F31.9 Active 17794250 Problem Mild persistent asthma without complication J45.30 Active 439664304 Problem Moderate persistent asthma without complication J4 5.40 Active 005182180 Problem Acute non-recurrent maxillary sinusitis J01.00 Active 87703537 Problem Bipolar 1 disorder, depressed, partial remission F 31.75 Active 30465271 ALLERGIES No Information ENCOUNTERS Encounter Location Date Diagnosis [facility] [address] [id number] [address] [place] [phone] Nov, [facility] [address] [id number] [address] [place] [address] Nov, [facility] [address] [id number] [address] [place] [address] Nov, [facility] [address] [id number] [address] [place] [address] Nov, [facility] [address] [id number] [address] [place] [address] Nov, [facility] [address] [id number] [address] [place] [address] Nov, [facility] [address] [id number] [address] [place] [address] Nov, [facility] [address] [id number] [address] [place] [address] Nov, Mild persistent asthma witho ut complication J45.30 and Irritable bowel syndrome with both constipation and diarrhea K58.2 [facility] [address] [id number] [address] [place] [address] Nov, [facility] [address] [id number] [address] [place] [address] Oct, [facility] [address] [place] [id number] [address] [place] [address] 29 Oct, 2017 [facility] [address] [place] [id number] [address] [place] [address] Oct, Type 2 diabetes mellitus wit h diabetic neuropathy, unspecified whether manager terminal insulin use E11.40 ; Diabetes E11.9 ; Slow transit constipation K59.01 ; Edema of both legs R60.0 and Dysfunction of right eustachian tube H69.81 [facility] [address] [facility] [id number] [address] [place] [address] Oct, Frequent headaches R51 [facility] [address] [id number] [address] [place] [address] Oct, [facility] [address] [place] [id number] [address] [place] [address] Oct, [facility] [address] [place] [id number] [address] [place] [address] Oct, [facility] [address] [facility] [id number] [address] [place] [address] Oct, [facility] [address] [place] [id number] [address] [place] [address] Oct, [facility] [address] [place] [id number] [address] [place] [address] 14 Oct, 2017 [facility] [id number] [place] [address] Oct, [facility] [address] [facility] [id number] [address] [place] [address] Oct, [facility] [address] [place] [id number] [address] [place] [address] September, Frequent headaches R51 [facility] [address] [facility] [id number] [address] [place] [address] September, Bilateral otitis media with effusion H65.93 ; Dizziness R42 and Essential tremor G25.0 [facility] [address] [facility] [id number] [address] [place] [address] September, Chronic obstructive pulmonar y disease, unspecified COPD type J44.9 [facility] [address] [id number] [address] [place] [address] September, Chronic obstructive pulmonar y disease, unspecified COPD type J44.9 [facility] [address] [facility] [id number] [address] [place] [address] September, Migraine without aura and wi thout status migrainosus, not intractable G43.009 [facility] [address] [facility] [id number] [address] [place] [address] September, [facility] [address] [facility] [id number] [address] [place] [address] September, [facility] [address] [facility] [id number] [address] [place] [address] September, [facility] [address] [facility] [id number] [address] [place] [address] September, Frequent headaches R51 [facility] [address] [facility] [id number] [address] [place] [address] Aug, [facility] [address] [facility] [id number] [address] [place] [address] Aug, Breast mass, right N63.10 [facility] [address] [facility] [id number] [address] [place] [address] Aug, Breast lump N63.0 [facility] [address] [facility] [id number] [address] [place] [address] Aug, [facility] [address] [facility] [id number] [address] [place] [address] Aug, Bipolar affective disorder, remission status unspecified F31.9 and Diabetes E11.9 [facility] [address] [facility] [id number] [address] [place] [address] Aug, Diabetes E11.9 ; Schizoaffec tive disorder, bipolar type F25.0 ; Pharyngitis due to other organism J02.8 ; Panlobular emphysema J43.1 and Irritable bowel syndrome with both constipation and diarrhea K58.2 [facility] [address] [id number] [address] [place] [address] Aug, Abnormal mammogram R92.8 [place] [address] [id number] [address] [place] [address] Aug, [place] [address] [id number] [address] [place] [address] Aug, Bipolar 1 disorder, depresse d, moderate F31.32 ; Panic disorder with agoraphobia F40.01 and Chronic post-traumatic stress disorder (PTSD) F43.12 [place] [address] [id number] [address] [place] [address] Aug, [place] [address] [id number] [address] [place] [address] Aug, [place] [address] [id number] [address] [place] [address] Aug, [place] [address] [id number] [address] [place] [address] Jul, [place] [address] [id number] [address] [place] [address] Jul, Mild persistent asthma witho ut complication J45.30 [place] [address] [id number] [address] [place] [address] 19 Jul, 2017 Mild persistent asthma witho ut complication J45.30 [place] [address] [facility] [id number] [address] [place] [address] 15 Jul, 2017 Bipolar affective disorder, remission status unspecified F31.9 ; Diabetes E11.9 and Irritable bowel syndrome with constipation K58.1 [place] [address] [id number] [address] [place] [address] Jul, [facility] [address] [id number] [address] [place] [address] Jul, [facility] [address] [facility] [id number] [address] [place] [address] Jul, Frequent headaches R51 [facility] [address] [facility] [id number] [address] [place] [address] Jul, [facility] [address] [facility] [id number] [address] [place] [address] Jul, [facility] [address] [facility] [id number] [address] [place] [address] Jul, [facility] [address] [facility] [id number] [address] [place] [address] Jul, Frequent headaches R51 ; Fib rocystic disease of left breast N60.12 ; Fibrocystic disease of right breast N60.11 and Diabetes E11.9 [facility] [address] [facility] [id number] [address] [place] [address] Jul, [facility] [address] [facility] [id number] [address] [place] [address] Jul, [facility] [address] [facility] [id number] [address] [place] [address] 21 Jun, 2017 Exudative tonsillitis J03.90 [facility] [address] [facility] [id number] [address] [place] [address] Jun, [facility] [address] [facility] [id number] [address] [place] [address] 19 Jun, 2017 [facility] [address] [facility] [id number] [address] [place] [address] 15 Jun, 2017 Mild persistent asthma witho ut complication J45.30 ; Chronic obstructive pulmonary disease, unspecified COPD type J44.9 and Exudative tonsillitis J03.90 [facility] [address] [facility] [id number] [address] [place] [address] 13 Jun, 2017 Encounter for immunization Z 23 [facility] [address] [facility] [id number] [address] [place] [address] 12 Jun, 2017 [facility] [address] [facility] [id number] [address] [place] [address] 12 Jun, 2017 [facility] [address] [facility] [id number] [address] [place] [address] Jun, [facility] [address] [facility] [id number] [address] [place] [address] Jun, Tonsillitis J03.90 [facility] [address] [facility] [id number] [address] [place] [address] Jun, [facility] [address] [facility] [id number] [place] [address] Jun, Acute non-recurrent maxillar y sinusitis J01.00 [facility] [address] [facility] [id number] [address] [place] [address] Jun, [facility] [address] [facility] [id number] [address] [place] [address] May, [facility] [address] [place] [id number] [address] [place] [address] May, [facility] [address] [place] [id number] [place] [address] May, GERD (gastroesophageal reflu x disease) K21.9 [facility] [address] [facility] [id number] [address] [place] [address] May, Migraine without aura and wi thout status migrainosus, not intractable G43.009 [facility] [address] [facility] [id number] [address] [place] [address] May, [facility] [address] [facility] [id number] [address] [place] [address] May, [facility] [address] [place] [id number] [address] [place] [address] May, Panlobular emphysema J43.1 a nd Acute non-recurrent maxillary sinusitis J01.00 [facility] [address] [facility] [id number] [address] [place] [address] May, Bipolar 1 disorder, depresse d, moderate F31.32 ; Panic disorder with agoraphobia F40.01 and Akathisia G25.71 [facility] [address] [facility] [id number] [address] [place] [address] Apr, [facility] [address] [facility] [id number] [address] [place] [address] Apr, [place] [address] [place] [id number] [place] [address] Apr, Acute non-recurrent maxillar y sinusitis J01.00 [place] [address] [place] [id number] [address] [place] [address] Apr, Panlobular emphysema J43.1 [facility] [address] [facility] [id number] [address] [place] [address] Apr, [facility] [address] [place] [id number] [address] [place] [address] Apr, Exudative tonsillitis J03.90 and Sore throat J02.9 [place] [address] [place] [id number] [address] [place] [address] 17 Mar, 2017 [facility] [address] [facility] [id number] [address] [place] [address] Mar, Acute non-recurrent maxillar y sinusitis J01.00 [facility] [address] [facility] [id number] [address] [place] [address] Mar, [facility] [address] [facility] [id number] [address] [place] [address] 09 Mar, 2017 Panlobular emphysema J43.1 a nd Diabetes E11.9 [facility] [address] [facility] [id number] [address] [place] [address] Mar, [facility] [address] [facility] [id number] [address] [place] [address] Feb, Wheezing R06.2 and Acute rec urrent pansinusitis J01.41 [facility] [address] [place] [id number] [address] [place] [address] Feb, [facility] [address] [facility] [id number] [place] [address] Feb, Acute non-recurrent maxillar y sinusitis J01.00 [place] [address] [address] Feb, Chronic obstructive pulmonar y disease, unspecified J44.9 [facility] [address] [address] 02 Feb, 2017 Hypoxemia R09.02 and Chronic obstructive pulmonary disease, unspecified J44.9 [facility] [address] [place] [id number] [address] [place] [address] 28 Jan, 2017 Bipolar 1 disorder, depresse d, moderate F31.32 ; Panic disorder with agoraphobia F40.01 ; Chronic post-traumatic stress disorder (PTSD) F43.12 ; Diabetes E11.9 and Moderate persistent asthma without complication J45.40 [facility] [id number] [place] [address] Jan, [facility] [address] [place] [id number] [address] [place] [address] 19 Jan, 2017 Acute non-recurrent maxillar y sinusitis J01.00 [facility] [address] [place] [id number] [address] [place] [address] 18 Jan, 2017 [facility] [address] [place] [id number] [address] [place] [address] 18 Jan, 2017 [facility] [address] [address] Jan, Moderate persistent asthma w ithout complication J45.40 and Hypoxemia R09.02 [facility] [address] [id number] [address] [place] [address] Jan, Moderate persistent asthma w ithout complication J45.40 and Hypoxemia R09.02 [facility] [address] [id number] [address] [place] [address] Jan, [facility] [address] [id number] [address] [place] [address] Dec, Acute non-recurrent maxillar y sinusitis J01.00 [facility] [address] [id number] [address] [place] [address] Dec, Chronic obstructive pulmonar y disease, unspecified J44.9 [facility] [address] [id number] [address] [place] [address] Dec, [facility] [address] [id number] [address] [place] [address] Dec, Mild persistent asthma witho ut complication J45.30 and Other chronic pain G89.29 [facility] [address] [id number] [address] [place] [address] Nov, [facility] [address] [id number] [address] [place] [address] Nov, Acute non-recurrent maxillar y sinusitis J01.00 [facility] [address] [id number] [address] [place] [address] Nov, [facility] [address] [id number] [address] [place] [address] Nov, [facility] [address] [id number] [address] [place] [address] Oct, [facility] [address] [id number] [address] [place] [address] Oct, Bipolar 1 disorder, depresse d, partial remission F31.75 ; Panic disorder with agoraphobia F40.01 and Chronic post-traumatic stress disorder (PTSD) F43.12 [place] [address] [facility] [id number] [address] [place] [address] Oct, Acute non-recurrent maxillar y sinusitis J01.00 [facility] [address] [facility] [id number] [address] [place] [address] Oct, [facility] [address] [facility] [id number] [address] [place] [address] Oct, Diabetes E11.9 [place] [address] [facility] [id number] [address] [place] [address] September, Diabetes E11.9 [place] [address] [facility] [id number] [address] [place] [address] September, Diabetes E11.9 and Sinus tac hycardia R00.0 [place] [address] [facility] [id number] [address] [place] [address] September, [place] [address] [facility] [id number] [address] [place] [address] September, [facility] [address] [facility] [id number] [address] [place] [address] Aug, Diabetes E11.9 and Lumbago w ith sciatica, right side M54.41 [place] [address] [place] [id number] [address] [place] [address] Aug, [place] [address] [place] [id number] [address] [place] [address] Jul, Bipolar 1 disorder, depresse d, moderate F31.32 ; Panic disorder with agoraphobia F40.01 and Chronic post-traumatic stress disorder (PTSD) F43.12 [facility] [address] [facility] [id number] [address] [place] [address] Jul, Sore throat J02.9 [facility] [address] [facility] [id number] [address] [place] [address] Jul, [facility] [address] [id number] [address] [place] [address] Jul, [facility] [address] [id number] [address] [place] [address] Jul, [facility] [address] [facility] [id number] [address] [place] [address] Jul, [facility] [address] [id number] [address] [place] [address] Jul, Sore throat J02.9 and Pharyn gitis, unspecified etiology J02.9 [facility] [address] [id number] [address] [place] [address] Jun, [facility] [address] [facility] [id number] [address] [place] [address] Jun, Diabetes E11.9 [facility] [address] [id number] [address] [place] [address] Jun, [facility] [address] [id number] [address] [place] [id number] Jun, [facility] [address] [id number] [address] [place] [address] Jun, [facility] [address] [id number] [address] [place] [id number] Jun, [facility] [address] [id number] [address] [place] [id number] Jun, [facility] [address] [id number] [address] [place] [phone] Jun, [facility] [address] [id number] [address] [place] [phone] Jun, [facility] [address] [id number] [address] [place] [id number] Jun, [facility] [address] [place] [id number] [address] [place] [id number] May, Diabetes E11.9 ; Other chron ic pain G89.29 ; Acute recurrent maxillary sinusitis J01.01 ; Bipolar I disorder with depression F31.9 and Anxiety disorder, unspecified F41.9 [place] [address] [place] [id number] [address] [place] [id number] May, [place] [address] [place] [id number] [place] [phone] May, Diabetes E11.9 ; Bipolar I d isorder with depression F31.9 ; Anxiety disorder, unspecified F41.9 ; Other chronic pain G89.29 and Acute recurrent maxillary sinusitis J01.01 [place] [address] [place] [id number] [address] [place] [phone] May, [place] [address] [id number] May, Attention deficit hyperactiv ity disorder (ADHD), predominantly inattentive type F90.0 [place] [id number] [place] [id number] May, [place] [address] [place] [id number] [place] [id number] Apr, Attention deficit hyperactiv ity disorder (ADHD), predominantly inattentive type F90.0 and Non-seasonal allergic rhinitis due to other allergic trigger J30.89 [place] [address] [place] [id number] [address] [place] [id number] 15 Apr, 2016 Bipolar 1 disorder, depresse d, moderate F31.32 ; Panic disorder with agoraphobia F40.01 and Chronic post-traumatic stress disorder (PTSD) F43.12 [place] [address] [place] [id number] [address] [place] [id number] 06 Apr, 2016 Dental examination Z01.20 [place] [address] [place] [id number] [address] [place] [phone] Mar, [place] [address] [address] [address] [id number] [address] [place] [phone] Mar, [facility] [address] [id number] [address] [place] [phone] Mar, Bipolar I disorder with depr ession F31.9 and Anxiety disorder, unspecified F41.9 [facility] [address] [id number] [address] [place] [id number] 08 Mar, 2016 Panic disorder with agorapho syd F40.01 ; Bipolar 1 disorder, depressed, moderate F31.32 and Chronic post-traumatic stress disorder (PTSD) F43.12 [place] [address] [id number] [address] [place] [address] Mar, [facility] [address] [id number] [address] [place] [address] Mar, Dental caries K02.9 [facility] [address] [id number] [address] [place] [address] 24 Feb, 2016 Lumbago with sciatica, left side M54.42 ; Lumbago with sciatica, right side M54.41 and Other chronic pain G89.29 [facility] [address] [id number] [address] [place] [phone] Feb, [facility] [address] [id number] [address] [place] [phone] Feb, [facility] [address] [id number] [address] [place] [phone] 13 Feb, 2016 Bipolar I disorder with depr ession F31.9 ; PTSD (post-traumatic stress disorder) F43.10 and Mood disorder F39 [facility] [address] [id number] [address] [place] [id number] Feb, [facility] [address] [id number] [address] [place] [id number] 11 Feb, 2016 Dental examination Z01.20 [facility] [address] [id number] [address] [place] [phone] Feb, [facility] [address] [facility] [id number] [address] [place] [address] Feb, Acute bronchitis, unspecifie d organism J20.9 [facility] [address] [facility] [id number] [address] [place] [phone] Jan, Mood disorder F39 ; Migraine without aura and without status migrainosus, not intractable G43.009 ; Irritable bowel syndrome, unspecified type K58.9 ; Diabetes E11.9 and Encounter for immunization Z23 [facility] [address] [facility] [id number] [address] [place] [phone] Jan, [facility] [address] [place] [id number] [address] [place] [phone] Jan, [facility] [address] [id number] Jan, [facility] [address] [place] [id number] [address] [place] [phone] Jan, [facility] [address] [place] [id number] [address] [place] [phone] Jan, [facility] [address] [place] [id number] [address] [place] [id number] Dec, Bipolar I disorder with depr ession F31.9 ; PTSD (post-traumatic stress disorder) F43.10 and Panic disorder with agoraphobia F40.01 [facility] [address] [facility] [id number] [address] [place] [id number] Dec, Chronic obstructive pulmonar y disease, unspecified COPD type J44.9 ; Tremor R25.1 and Anxiety F41.9 [facility] [address] [place] [id number] [address] [place] [phone] Dec, [facility] [address] [place] [id number] [address] [place] [phone] Nov, Tremors of nervous system R2 5.1 and Cramping of feet R25.2 [facility] [address] [id number] [address] [place] [address] Nov, [facility] [address] [id number] [address] [place] [address] Nov, [facility] [address] [id number] [address] [place] [address] Oct, Chronic obstructive pulmonar y disease, unspecified J44.9 [facility] [address] [id number] [address] [place] [address] Oct, [facility] [address] [id number] [address] [place] [address] Oct, Tremor R25.1 [facility] [address] [facility] [id number] [address] [place] [phone] Oct, Bipolar I disorder with depr ession F31.9 ; Diabetes E11.9 ; PTSD (post-traumatic stress disorder) F43.10 and Panic disorder with agoraphobia F40.01 [facility] [address] [id number] [address] [place] [phone] Oct, Mood disorder F39 [place] [address] [facility] [id number] [address] [place] [address] September, [facility] [address] [id number] [address] [place] [address] September, Diabetes E11.9 ; Bipolar I d isorder with depression F31.9 ; PTSD (post-traumatic stress disorder) F43.10 and Panic disorder with agoraphobia F40.01 [facility] [address] [id number] [address] [place] [address] September, Mood disorder F39 ; Schizoaf fective disorder, unspecified type F25.9 ; Arthritis M19.90 ; Tremor R25.1 ; Acute non-recurrent frontal sinusitis J01.10 and Blood in stool K92.1 [facility] [address] [id number] [address] [place] [address] September, [facility] [address] [id number] [address] [place] [address] September, Chronic obstructive pulmonar y disease, unspecified J44.9 [facility] [address] [id number] [address] [place] [address] September, Diabetes E11.9 [facility] [address] [id number] [address] [place] [address] Aug, Other bipolar disorder F31.8 9 and Anxiety disorder, unspecified F41.9 [facility] [address] [id number] [address] [place] [address] Aug, [facility] [address] [id number] [address] [place] [phone] Aug, Diabetes E11.9 [facility] [address] [id number] [address] [place] [address] 18 Aug, 2015 [facility] [address] [id number] [address] [place] [id number] 14 Aug, 2015 Diabetes E11.9 ; Fatigue R53 .83 and Dizziness R42 [facility] [address] [id number] [address] [place] [address] Aug, Other bipolar disorder F31.8 9 [facility] [address] [id number] [address] [place] [phone] Aug, Generalized anxiety disorder F41.1 [facility] [address] [id number] [address] [place] [id number] 07 Aug, 2015 Other bipolar disorder F31.8 9 and Anxiety disorder, unspecified F41.9 [facility] [address] [id number] [address] [place] [address] Aug, [facility] [address] [id number] [address] [place] [phone] Jul, [facility] [address] [facility] [id number] [address] [place] [address] Jul, [facility] [address] [facility] [id number] [address] [place] [phone] Jul, Bronchitis J40 [facility] [address] [facility] [id number] [address] [place] [address] Jul, Anxiety disorder F41.9 [facility] [address] [facility] [id number] [address] [place] [address] Jul, Other bipolar disorder F31.8 9 and Anxiety disorder, unspecified F41.9 [facility] [address] [facility] [id number] [address] [place] [address] Jul, Other bipolar disorder F31.8 9 and Fibromyalgia M79.7 [facility] [address] [place] [id number] [address] [place] [id number] Jul, [facility] [address] [place] [id number] [address] [place] [address] Jul, [facility] [address] [place] [id number] [address] [place] [id number] Jul, [facility] [address] [place] [id number] [address] [place] [phone] Jul, Other bipolar disorder F31.8 9 and Anxiety disorder, unspecified F41.9 [facility] [address] [place] [id number] [address] [place] [phone] Jun, GERD (gastroesophageal reflu x disease) K21.9 [facility] [address] [facility] [id number] [address] [place] [address] Jun, [facility] [address] [facility] [id number] [address] [place] [address] May, [facility] [address] [place] [id number] [address] [place] [address] May, Diabetes E11.9 ; Back pain M 54.9 ; GERD (gastroesophageal reflux disease) K21.9 ; Hypertension I10 and Peripheral neuropathy G62.9 [facility] [address] [id number] [address] [place] [address] Mar, [facility] [address] [id number] [address] [place] [address] Mar, [facility] [address] [facility] [id number] [address] [place] [address] Mar, Acute sinusitis J01.90 and O titis media, left H66.92 [facility] [address] [id number] [address] [place] [phone] Feb, [facility] [address] [id number] [address] [place] [address] Feb, [facility] [address] [facility] [id number] [address] [place] [phone] Feb, [facility] [address] [facility] [id number] [address] [place] [phone] Feb, [facility] [address] [facility] [id number] [address] [place] [phone] Jan, [facility] [address] [facility] [id number] [address] [place] [address] Jan, Diabetes 250.00 and Back higinio n 724.5 [facility] [address] [facility] [id number] [address] [place] [address] Jan, [facility] [address] [facility] [id number] [address] [place] [address] Dec, Diabetes 250.00 ; Benign ess ential hypertension 401.1 and Allergic rhinitis 477.9 [facility] [address] [id number] [address] [place] [address] Dec, [facility] [address] [facility] [id number] [address] [place] [address] Dec, [facility] [address] [facility] [id number] [address] [place] [address] Dec, Psychosis 298.9 [facility] [address] [id number] [address] [place] [address] Dec, Medication side effect 995.2 0 and Generalized anxiety disorder 300.02 [facility] [address] [id number] [address] [place] [address] Dec, Acquired cognitive dysfuncti on 294.9 [facility] [address] [facility] [id number] [address] [place] [address] Dec, [facility] [address] [facility] [id number] [address] [place] [address] Dec, Unspecified myalgia and myos itis 729.1 and Generalized anxiety disorder 300.02 [facility] [address] [facility] [id number] [address] [place] [address] Nov, [facility] [address] [facility] [id number] [address] [place] [address] Nov, [facility] [address] [facility] [id number] [address] [place] [address] Nov, [facility] [address] [facility] [id number] [address] [place] [address] Nov, Upper respiratory infection 465.9 and Chronic airway obstruction, not elsewhere classified 496 [facility] [address] [facility] [id number] [address] [place] [address] Nov, Hyponatremia 276.1 [facility] [address] [facility] [id number] [address] [place] [phone] Oct, [facility] [address] [facility] [id number] [address] [place] [address] Oct, [facility] [address] [facility] [id number] [address] [place] [address] Oct, [facility] [address] [facility] [id number] [address] [place] [id number] Oct, [facility] [address] [facility] [id number] [address] [place] [phone] 04 Oct, 2014 Hyponatremia 276.1 [facility] [address] [facility] [id number] [address] [place] [address] Oct, [facility] [address] [facility] [id number] [address] [place] [address] Oct, [facility] [address] [facility] [id number] [address] [place] [address] Oct, Generalized anxiety disorder 300.02 [facility] [address] [facility] [id number] [address] [place] [address] Oct, Generalized anxiety disorder 300.02 and Diabetes 250.00 [facility] [address] [facility] [id number] [address] [place] [address] Aug, [facility] [address] [facility] [id number] [address] [place] [address] Aug, [facility] [address] [facility] [id number] [address] [place] [address] Jul, [facility] [address] [facility] [id number] [address] [place] [address] Jul, [facility] [address] [facility] [id number] [address] [place] [phone] Jun, [facility] [address] [facility] [id number] [address] [place] [id number] Jun, [facility] [address] [facility] [id number] [address] [place] [phone] Jun, [facility] [address] [facility] [id number] [address] [place] [address] Jun, [facility] [address] [facility] [id number] [address] [place] [phone] Jun, [facility] [address] [facility] [id number] [address] [place] [address] May, [facility] [address] [id number] [address] [place] [address], [place] [address] May, [facility] [address] [id number] [address] [place] [address], [place] [address] Apr, [facility] [address] [id number] [address] [place] [address], [place] [address] Apr, [facility] [address] [id number] [address] [place] [address], [place] [address] Apr, [facility] [address] [id number] [address] [place] [address], [place] [address] Apr, [facility] [address] [id number] [address] [place] [address], [place] [address] Apr, [facility] [address] [id number] [address] [place] [address], [place] [address] Apr, [facility] [address] [id number] [address] [place] [address], [place] [address] Apr, [facility] [address] [id number] [address] [place] [address], [place] [address] Apr, [facility] [address] [id number] [address] [place] [address], [place] [address] Feb, [facility] [address] [id number] [address] [place] [address], [place] [address] Feb, [facility] [address] [id number] [address] [place] [address], [place] [address] Jan, [facility] [address] [id number] [address] [place] [address], [place] [address] Jan, [facility] [address] [id number] [address] [place] [address], [place] [address] Dec, [facility] [address] [id number] [address] [place] [address], [place] [address] Dec, [facility] [address] [id number] [address] [place] [address] [place] [address] Dec, [facility] [address] [id number] [address] [place] [address], [place] [address] Nov, [facility] [address] [id number] [address] [place] [address], [place] [address] Nov, [facility] [address] [id number] [address] [place] [address], [place] [address] Nov, [facility] [address] [id number] [address] [place] [address], [place] [address] Oct, [facility] [address] [id number] [address] [place] [address], [place] [address] Oct, [facility] [address] [id number] [address] [place] [address], [place] [address] Oct, [facility] [address] [id number] [address] [place] [address], [place] [address] September, [facility] [address] [id number] [address] [place] [address], [place] [address] September, [facility] [address] [id number] [address] [place] [address], [place] [address] September, [facility] [address] [id number] [address] [place] [address], [place] [address] Aug, [facility] [address] [id number] [address] [place] [address], [place] [address] Aug, [facility] [address] [id number] [address] [place] [address], [place] [address] Aug, [facility] [address] [id number] [address] [place] [address], [place] [id number] 16 Aug, 2011 [facility] [address] [id number] [address] [place] [address], [place] [address] Jul, [facility] [address] [id number] [address] [place] [address], [place] [address] Jun, [facility] [address] [id number] [address] [place] [address], [place] [address] 14 Jun, 2011 [facility] [address] [id number] [address] [place] [address], [place] [address] 13 Jun, 2011 [facility] [address] [id number] [address] [place] [address], [place] [address] 07 Jun, 2011 [facility] [address] [id number] [address] [place] [address], [place] [address] 03 Jun, 2011 [facility] [address] [id number] [address] [place] [address], [place] [address] 13 May, 2011 [facility] [address] [id number] [address] [place] [address], [place] [address] May, [facility] [address] [id number] [address] [place] [address], [place] [address] May, [facility] [address] [id number] [address] [place] [address], [place] [address] May, [facility] [address] [id number] [address] [place] [address], [place] [address] Apr, [facility] [address] [id number] [address] [place] [address], [place] [address] Apr, [facility] [address] [id number] [address] [place] [address], [place] [address] Apr, [facility] [address] [id number] [address] [place] [address], [place] [address] Mar, [facility] [address] [id number] [address] [place] [address], [place] [id number] Mar, [facility] [address] [id number] [address] [place] [address], [place] [id number] Mar, [facility] [address] [id number] [address] [place] [address], [place] [id number] Feb, [facility] [address] [id number] [address] [place] [id number] 13 Feb, 2011 [facility] [address] [id number] [address] [place] [id number] 13 Feb, 2011 [facility] [address] [id number] [address] [place] [id number] Nov, [facility] [address] [id number] [address] [place] [id number] September, [facility] [address] [id number] [address] [place] [id number] Aug, [facility] [address] [id number] [address] [place] [id number] Jul, [facility] [address] [id number] [address] [place] [id number] May, [facility] [address] [id number] [address] [place] [id number] Apr, [facility] [address] [id number] [address] [place] [id number] Apr, [facility] [address] [id number] [address] [place] [id number] Apr, [facility] [address] [id number] [address] [place] [id number] Apr, [facility] [address] [id number] [address] [place] [id number] Apr, IMMUNIZATIONS No Known Immunizations SOCIAL HISTORY Never Assessed REASON FOR VISIT miralax PLAN OF CARE VITAL SIGNS MEDICATIONS Medication [...]
--- OUTSIDE RECORDS SUMMARY | 2019-07-17 11:14 | XMS REPORT ---
Author Author Sujey GANDHI Organization [facility] Address [address] [place] [address] Care Team Providers Care Ladies Suit Operator Name Role Phone WHIT GANDHI Unavailable PROBLEMS Type Condition ICD9-CM Code [id number] Code Onset Dates Condition S tatus SNOMED Code Problem Back pain M54.9 Active 018117315 Problem Diabetes E11.9 Active 13526050 Problem GERD (gastroesophageal reflux disease) K21.9 Active 160176783 Problem Hypertension I10 Active 2824886 3 Problem Anxiety disorder, unspecified F41.9 Active 333452327 Problem Other bipolar disorder F31.89 Active 38261661 Problem Fibromyalgia M79.7 Active 8091931 7 Problem Panic disorder with agoraphobia F40.01 Active 36643164 Problem Panlobular emphysema J43.1 Active 0253804 Problem Chronic obstructive pulmonary disease, unspecified J44.9 Active 34851920 Problem Akathisia G25.71 Active 923641328 Problem Lumbago with sciatica, left side M54.42 Active 039246150 Problem Migraine without aura and without status migrain osus, not intractable G43.009 Active 215744956 Problem Fibrocystic disease of right breast N60.11 Active 59994330 Problem Fibrocystic disease of left breast N60.12 Active 33139046 Problem Slow transit constipation K59.01 Acti ve 73645941 Problem Essential tremor G25.0 Active 609 772676 Problem Bipolar 1 disorder, depressed, moderate F31.32 Active 70470374 Problem Other chronic pain G89.29 Active 8 0933480 Problem Lumbago with sciatica, right side M54.41 Active 547041285 Problem Irritable bowel syndrome with constipation K58.1 Active 349535059 Problem Arthritis M19.90 Active 5238296 Problem Schizoaffective disorder, bipolar type F25.0 Active 20376264 Problem Irritable bowel syndrome with both constipation and diarrh ea K58.2 Active 19112682 Problem Attention deficit hyperactiv ity disorder (ADHD), predominantly inattentive type F90.0 Active 07015525 Problem Bipolar I disorder with depression F31.9 Active 17520165 Problem Chronic post-traumatic stress disorder (PTSD) F43. 12 Active 012926190 Problem Bipolar affective disorder, remission status unspecified F31.9 Active 64047527 Problem Mild persistent asthma without complication J45.30 Active 808813877 Problem Moderate persistent asthma without complication J4 5.40 Active 307782322 Problem Acute non-recurrent maxillary sinusitis J01.00 Active 80943171 Problem Bipolar 1 disorder, depressed, partial remission F 31.75 Active 15607782 ALLERGIES Substance Reaction Event Type Date Status Penicillin V Potassium Unknown Drug Allergy Jul, Activ e Effexor anaphylaxis Drug Allergy Jul, Active Darvocet-N 50 Unknown Drug Allergy Jul, Active Cefdinir Swelling Drug Allergy Jul, Active Benadryl vomiting/swelling Drug Allergy Jul, Active ENCOUNTERS Encounter Location Date Diagnosis [facility] [address] [facility] [id number] [address] [place] [address] Nov, [facility] [address] [id number] [address] [place] [address] Nov, [facility] [address] [id number] [address] [place] [address] Nov, [facility] [address] [id number] [address] [place] [address] Nov, [facility] [address] [id number] [address] [place] [address] Nov, [facility] [address] [id number] [address] [place] [address] Nov, [facility] [address] [id number] [address] [place] [address] Nov, [facility] [address] [id number] [address] [place] [address] Nov, [facility] [address] [id number] [address] [place] [address] Nov, [facility] [address] [facility] [id number] [address] [place] [address] Nov, Mild persistent asthma witho ut complication J45.30 and Irritable bowel syndrome with both constipation and diarrhea K58.2 [facility] [address] [facility] [id number] [address] [place] [address] Nov, [facility] [address] [facility] [id number] [address] [place] [address] Oct, [facility] [address] [facility] [id number] [address] [place] [address] Oct, [facility] [address] [facility] [id number] [address] [place] [address] Oct, Type 2 diabetes mellitus wit h diabetic neuropathy, unspecified whether longterm insulin use E11.40 ; Diabetes E11.9 ; Slow transit constipation K59.01 ; Edema of both legs R60.0 and Dysfunction of right eustachian tube H69.81 [facility] [address] [facility] [id number] [address] [place] [address] Oct, Frequent headaches R51 [facility] [address] [facility] [id number] [address] [place] [address] Oct, [facility] [address] [facility] [id number] [address] [place] [id number] Oct, [facility] [address] [facility] [id number] [address] [place] [address] Oct, [facility] [address] [facility] [id number] [address] [place] [id number] 18 Oct, 2017 [facility] [address] [facility] [id number] [address] [place] [address] 15 Oct, 2017 [facility] [address] [facility] [id number] [address] [place] [address] 14 Oct, 2017 [facility] [address] [facility] [id number] [address] [place] [id number] 05 Oct, 2017 [place] [address] [facility] [id number] [address] [place] [address] Oct, [facility] [address] [facility] [id number] [address] [place] [address] September, Frequent headaches R51 [facility] [address] [place] [id number] [address] [place] [address] September, Bilateral otitis media with effusion H65.93 ; Dizziness R42 and Essential tremor G25.0 [facility] [address] [facility] [id number] [address] [place] [address] September, Chronic obstructive pulmonar y disease, unspecified COPD type J44.9 [facility] [address] [facility] [id number] [address] [place] [address] September, Chronic obstructive pulmonar y disease, unspecified COPD type J44.9 [facility] [address] [place] [id number] [address] [place] [address] September, Migraine without aura and wi thout status migrainosus, not intractable G43.009 [facility] [address] [place] [id number] [address] [place] [address] September, [facility] [address] [place] [id number] [address] [place] [address] September, [facility] [address] [place] [id number] [address] [place] [address] September, [facility] [address] [place] [id number] [address] [place] [address] September, Frequent headaches R51 [facility] [address] [facility] [id number] [address] [place] [id number] Aug, [facility] [address] [place] [id number] [address] [place] [address] Aug, Breast mass, right N63.10 [facility] [address] [place] [id number] [address] [place] [address] Aug, Breast lump N63.0 [place] [address] [facility] [id number] [address] [place] [address] Aug, [place] [address] [facility] [id number] [address] [place] [address] Aug, Bipolar affective disorder, remission status unspecified F31.9 and Diabetes E11.9 [place] [address] [facility] [id number] [address] [place] [address] Aug, Diabetes E11.9 ; Schizoaffec tive disorder, bipolar type F25.0 ; Pharyngitis due to other organism J02.8 ; Panlobular emphysema J43.1 and Irritable bowel syndrome with both constipation and diarrhea K58.2 [place] [address] [place] [id number] [address] [place] [address] Aug, Abnormal mammogram R92.8 [place] [address] [place] [id number] [address] [place] [address] Aug, [place] [address] [facility] [id number] [address] [place] [address] Aug, Bipolar 1 disorder, depresse d, moderate F31.32 ; Panic disorder with agoraphobia F40.01 and Chronic post-traumatic stress disorder (PTSD) F43.12 [place] [address] [place] [id number] [address] [place] [address] Aug, [place] [address] [facility] [id number] [address] [place] [address] Aug, [place] [address] [facility] [id number] [address] [place] [address] Aug, [place] [address] [place] [id number] [address] [place] [address] Jul, [place] [address] [place] [id number] [address] [place] [address] Jul, Mild persistent asthma witho ut complication J45.30 [place] [address] [place] [id number] [address] [place] [id number] 19 Jul, 2017 Mild persistent asthma witho ut complication J45.30 [facility] [address] [place] [id number] [place] [address] 15 Jul, 2017 Bipolar affective disorder, remission status unspecified F31.9 ; Diabetes E11.9 and Irritable bowel syndrome with constipation K58.1 [facility] [address] [place] [id number] [address] [place] [id number] 13 Jul, 2017 [facility] [address] [facility] [id number] [address] [place] [address] 09 Jul, 2017 [facility] [address] [facility] [id number] [address] [place] [id number] 08 Jul, 2017 Frequent headaches R51 [place] [address] [id number] Jul, [place] [address] [place] [id number] [address] [place] [address] Jul, [facility] [address] [facility] [id number] [address] [place] [address] Jul, [place] [address] [id number] Jul, Frequent headaches R51 ; Fib rocystic disease of left breast N60.12 ; Fibrocystic disease of right breast N60.11 and Diabetes E11.9 [place] [address] [place] [id number] [address] [place] [address] Jul, [facility] [address] [place] [id number] [address] [place] [address] Jul, [place] [address] [address] Jun, Exudative tonsillitis J03.90 [place] [address] [place] [id number] [address] [place] [address] Jun, [facility] [address] [facility] [id number] [address] [place] [id number] 19 Jun, 2017 [facility] [address] [address] 15 Jun, 2017 Mild persistent asthma witho ut complication J45.30 ; Chronic obstructive pulmonary disease, unspecified COPD type J44.9 and Exudative tonsillitis J03.90 [facility] [address] [address] 13 Jun, 2017 Encounter for immunization Z 23 [facility] [address] [address] 12 Jun, 2017 [facility] [address] [address] 12 Jun, 2017 [facility] [address] [address] 09 Jun, 2017 [facility] [address] [address] 06 Jun, 2017 Tonsillitis J03.90 [facility] [address] [address] 05 Jun, 2017 [facility] [address] [address] 03 Jun, 2017 Acute non-recurrent maxillar y sinusitis J01.00 [facility] [address] [place] [id number] [address] [place] [address] 02 Jun, 2017 [facility] [address] [place] [id number] [address] [place] [address] May, [facility] [address] [address] May, [facility] [address] [address] May, GERD (gastroesophageal reflu x disease) K21.9 [facility] [address] [place] [id number] [address] [place] [address] May, Migraine without aura and wi thout status migrainosus, not intractable G43.009 [place] [address] [place] [id number] [address] [place] [address] May, [facility] [address] [address] May, [place] [address] [address] May, Panlobular emphysema J43.1 a nd Acute non-recurrent maxillary sinusitis J01.00 [place] [address] [address] May, Bipolar 1 disorder, depresse d, moderate F31.32 ; Panic disorder with agoraphobia F40.01 and Akathisia G25.71 [place] [address] [address] Apr, [place] [address] [address] Apr, [place] [address] [address] Apr, Acute non-recurrent maxillar y sinusitis J01.00 [place] [address] [address] Apr, Panlobular emphysema J43.1 [place] [address] [address] Apr, [facility] [address] [place] [id number] [place] [address] 04 Apr, 2017 Sore throat J02.9 and Exudat miono tonsillitis J03.90 [place] [address] [address] Mar, [place] [address] [facility] [id number] [address] [place] [id number] 15 Mar, 2017 Acute non-recurrent maxillar y sinusitis J01.00 [facility] [address] [facility] [id number] [address] [place] [id number] 13 Mar, 2017 [facility] [address] [facility] [id number] [address] [place] [id number] 09 Mar, 2017 Panlobular emphysema J43.1 a nd Diabetes E11.9 [facility] [address] [facility] [id number] [address] [place] [id number] 06 Mar, 2017 [facility] [address] [facility] [id number] [address] [place] [id number] 24 Feb, 2017 Wheezing R06.2 and Acute rec urrent pansinusitis J01.41 [place] [address] [facility] [id number] [address] [place] [address] Feb, [facility] [address] [facility] [id number] [address] [place] [address] Feb, Acute non-recurrent maxillar y sinusitis J01.00 [facility] [address] [facility] [id number] [address] [place] [address] Feb, Chronic obstructive pulmonar y disease, unspecified J44.9 [facility] [address] [facility] [id number] [address] [place] [address] Feb, Hypoxemia R09.02 and Chronic obstructive pulmonary disease, unspecified J44.9 [facility] [address] [facility] [id number] [address] [place] [id number] 28 Jan, 2017 Bipolar 1 disorder, depresse d, moderate F31.32 ; Panic disorder with agoraphobia F40.01 ; Chronic post-traumatic stress disorder (PTSD) F43.12 ; Diabetes E11.9 and Moderate persistent asthma without complication J45.40 [facility] [address] [facility] [id number] [address] [place] [address] Jan, [facility] [address] [id number] [address] [place] [address] 19 Jan, 2017 Acute non-recurrent maxillar y sinusitis J01.00 [facility] [address] [id number] [address] [place] [id number] 18 Jan, 2017 [facility] [address] [id number] [address] [place] [address] 18 Jan, 2017 [facility] [address] [id number] [address] [place] [address] Jan, Moderate persistent asthma w ithout complication J45.40 and Hypoxemia R09.02 [facility] [address] [id number] [address] [place] [address] Jan, Moderate persistent asthma w ithout complication J45.40 and Hypoxemia R09.02 [facility] [address] [id number] [address] [place] [address] Jan, [facility] [address] [id number] [address] [place] [address] Dec, Acute non-recurrent maxillar y sinusitis J01.00 [facility] [address] [id number] [address] [place] [address] Dec, Chronic obstructive pulmonar y disease, unspecified J44.9 [facility] [address] [id number] [address] [place] [address] Dec, [facility] [address] [id number] [address] [place] [address] Dec, Mild persistent asthma witho ut complication J45.30 and Other chronic pain G89.29 [facility] [address] [id number] [address] [place] [address] Nov, [facility] [address] [id number] [address] [place] [address] Nov, Acute non-recurrent maxillar y sinusitis J01.00 [facility] [address] [id number] [address] [place] [address] Nov, [facility] [address] [id number] [address] [place] [address] Nov, [facility] [address] [facility] [id number] [address] [place] [id number] Oct, [facility] [address] [facility] [id number] [address] [place] [address] Oct, Bipolar 1 disorder, depresse d, partial remission F31.75 ; Panic disorder with agoraphobia F40.01 and Chronic post-traumatic stress disorder (PTSD) F43.12 [facility] [address] [id number] [address] [place] [address] Oct, Acute non-recurrent maxillar y sinusitis J01.00 [facility] [address] [facility] [id number] [address] [place] [address] Oct, [facility] [address] [facility] [id number] [address] [place] [address] Oct, Diabetes E11.9 [facility] [address] [id number] [address] [place] [address] September, Diabetes E11.9 [facility] [address] [facility] [id number] [address] [place] [address] September, Diabetes E11.9 and Sinus tac hycardia R00.0 [facility] [address] [id number] [address] [place] [address] September, [facility] [address] [id number] [address] [place] [address] September, [facility] [address] [facility] [id number] [address] [place] [address] Aug, Diabetes E11.9 and Lumbago w ith sciatica, right side M54.41 [facility] [address] [facility] [id number] [address] [place] [id number] Aug, [facility] [address] [facility] [id number] [address] [place] [address] Jul, Bipolar 1 disorder, depresse d, moderate F31.32 ; Panic disorder with agoraphobia F40.01 and Chronic post-traumatic stress disorder (PTSD) F43.12 [facility] [address] [facility] [id number] [address] [place] [address] Jul, Sore throat J02.9 [facility] [address] [facility] [id number] [address] [place] [address] Jul, [facility] [address] [facility] [id number] [address] [place] [address] Jul, [facility] [address] [place] [id number] [address] [place] [address] Jul, [facility] [address] [facility] [id number] [address] [place] [address] Jul, [facility] [address] [facility] [id number] [address] [place] [address] Jul, Sore throat J02.9 and Pharyn gitis, unspecified etiology J02.9 [facility] [address] [facility] [id number] [address] [place] [address] Jun, [facility] [address] [place] [id number] [address] [place] [address] Jun, Diabetes E11.9 [facility] [address] [facility] [id number] [address] [place] [address] Jun, [facility] [address] [facility] [id number] [address] [place] [id number] Jun, [facility] [address] [place] [id number] [address] [place] [id number] Jun, [facility] [address] [place] [id number] [address] [place] [address] Jun, [facility] [address] [place] [id number] [address] [place] [id number] 16 Jun, 2016 [facility] [address] [id number] [address] [place] [address] Jun, [facility] [address] [id number] [address] [place] [id number] 10 Jun, 2016 [facility] [address] [id number] [address] [place] [address] Jun, [facility] [address] [facility] [id number] [address] [place] [id number] May, Diabetes E11.9 ; Bipolar I d isorder with depression F31.9 ; Other chronic pain G89.29 ; Acute recurrent maxillary sinusitis J01.01 and Anxiety disorder, unspecified F41.9 [facility] [address] [facility] [id number] [address] [place] [address] May, [facility] [address] [facility] [id number] [address] [place] [id number] May, Diabetes E11.9 ; Bipolar I d isorder with depression F31.9 ; Anxiety disorder, unspecified F41.9 ; Other chronic pain G89.29 and Acute recurrent maxillary sinusitis J01.01 [facility] [address] [facility] [id number] [address] [place] [id number] May, [facility] [address] [facility] [id number] [address] [place] [id number] May, Attention deficit hyperactiv ity disorder (ADHD), predominantly inattentive type F90.0 [facility] [address] [facility] [id number] [address] [place] [phone] May, [facility] [address] [facility] [id number] [address] [place] [id number] Apr, Attention deficit hyperactiv ity disorder (ADHD), predominantly inattentive type F90.0 and Non-seasonal allergic rhinitis due to other allergic trigger J30.89 [facility] [address] [facility] [id number] [address] [place] [id number] 15 Apr, 2016 Bipolar 1 disorder, depresse d, moderate F31.32 ; Panic disorder with agoraphobia F40.01 and Chronic post-traumatic stress disorder (PTSD) F43.12 [facility] [address] [facility] [id number] [address] [place] [id number] 06 Apr, 2016 Dental examination Z01.20 [place] [address] [facility] [id number] [address] [place] [id number] Mar, [place] [address] [facility] [id number] [address] [place] [id number] Mar, [place] [address] [place] [id number] [place] [id number] Mar, Bipolar I disorder with depr ession F31.9 and Anxiety disorder, unspecified F41.9 [place] [address] [place] [id number] [address] [place] [address] Mar, Panic disorder with agorapho syd F40.01 ; Bipolar 1 disorder, depressed, moderate F31.32 and Chronic post-traumatic stress disorder (PTSD) F43.12 [place] [address] [place] [id number] [address] [place] [address] Mar, [place] [address] [place] [id number] [address] [place] [address] Mar, Dental caries K02.9 [place] [address] [place] [id number] [address] [place] [address] Feb, Lumbago with sciatica, left side M54.42 ; Lumbago with sciatica, right side M54.41 and Other chronic pain G89.29 [place] [address] [facility] [id number] [address] [place] [address] Feb, [place] [address] [place] [id number] [address] [place] [id number] 14 Feb, 2016 [place] [address] [facility] [id number] [address] [place] [address] Feb, Bipolar I disorder with depr ession F31.9 ; PTSD (post-traumatic stress disorder) F43.10 and Mood disorder F39 [facility] [address] [place] [id number] [address] [place] [address] Feb, [facility] [address] [place] [id number] [place] [address] Feb, Dental examination Z01.20 [facility] [address] [id number] 07 Feb, 2016 [facility] [address] [address] Feb, Acute bronchitis, unspecifie d organism J20.9 [facility] [address] [id number] 26 Jan, 2016 Mood disorder F39 ; Migraine without aura and without status migrainosus, not intractable G43.009 ; Irritable bowel syndrome, unspecified type K58.9 ; Diabetes E11.9 and Encounter for immunization Z23 [facility] [address] [id number] 15 Jan, 2016 [facility] [address] [place] [id number] [place] [address] Jan, [facility] [address] [address] Jan, [facility] [address] [address] Jan, [facility] [address] [id number] Jan, [facility] [address] [place] [id number] [place] [address] Dec, Bipolar I disorder with depr ession F31.9 ; PTSD (post-traumatic stress disorder) F43.10 and Panic disorder with agoraphobia F40.01 [facility] [address] [id number] [address] [place] [address] Dec, Chronic obstructive pulmonar y disease, unspecified COPD type J44.9 ; Tremor R25.1 and Anxiety F41.9 [facility] [address] [id number] [address] [place] [address] Dec, [facility] [address] [id number] [address] [place] [address] Nov, Tremors of nervous system R2 5.1 and Cramping of feet R25.2 [facility] [address] [id number] [address] [place] [address] Nov, [facility] [address] [id number] [address] [place] [address] Nov, [facility] [address] [id number] [address] [place] [address] Oct, Chronic obstructive pulmonar y disease, unspecified J44.9 [facility] [address] [id number] [address] [place] [address] Oct, [facility] [address] [id number] [address] [place] [address] Oct, Tremor R25.1 [facility] [address] [id number] [address] [place] [address] Oct, Bipolar I disorder with depr ession F31.9 ; Diabetes E11.9 ; PTSD (post-traumatic stress disorder) F43.10 and Panic disorder with agoraphobia F40.01 [facility] [address] [id number] [address] [place] [address] Oct, Mood disorder F39 [facility] [address] [id number] [address] [place] [address] September, [facility] [address] [id number] [address] [place] [address] September, Diabetes E11.9 ; Bipolar I d isorder with depression F31.9 ; PTSD (post-traumatic stress disorder) F43.10 and Panic disorder with agoraphobia F40.01 [place] [address] [place] [id number] [address] [place] [address] September, Mood disorder F39 ; Schizoaf fective disorder, unspecified type F25.9 ; Arthritis M19.90 ; Tremor R25.1 ; Acute non-recurrent frontal sinusitis J01.10 and Blood in stool K92.1 [place] [address] [place] [id number] [address] [place] [address] September, [place] [address] [address] September, Chronic obstructive pulmonar y disease, unspecified J44.9 [place] [address] [place] [id number] [address] [place] [address] September, Diabetes E11.9 [place] [address] [place] [id number] [address] [place] [address] Aug, Other bipolar disorder F31.8 9 and Anxiety disorder, unspecified F41.9 [place] [address] [place] [id number] [address] [place] [id number] Aug, [place] [address] [place] [id number] [address] [place] [address] Aug, Diabetes E11.9 [place] [address] [place] [id number] [address] [place] [id number] 18 Aug, 2015 [place] [address] [place] [id number] [address] [place] [address] 14 Aug, 2015 Diabetes E11.9 ; Fatigue R53 .83 and Dizziness R42 [place] [address] [facility] [id number] [address] [place] [address] 13 Aug, 2015 Other bipolar disorder F31.8 9 [place] [address] [place] [id number] [address] [place] [address] Aug, Generalized anxiety disorder F41.1 [facility] [address] [id number] [address] [place] [address] Aug, Other bipolar disorder F31.8 9 and Anxiety disorder, unspecified F41.9 [facility] [address] [id number] [address] [place] [address] Aug, [facility] [address] [id number] [address] [place] [id number] Jul, [facility] [address] [id number] [address] [place] [address] Jul, [facility] [address] [id number] [address] [place] [address] Jul, Bronchitis J40 [facility] [address] [facility] [id number] [address] [place] [address] Jul, Anxiety disorder F41.9 [facility] [address] [facility] [id number] [address] [place] [address] Jul, Other bipolar disorder F31.8 9 and Anxiety disorder, unspecified F41.9 [facility] [address] [id number] [address] [place] [address] Jul, Other bipolar disorder F31.8 9 and Fibromyalgia M79.7 [facility] [address] [id number] [address] [place] [address] Jul, [facility] [address] [facility] [id number] [address] [place] [address] Jul, [facility] [address] [id number] [address] [place] [address] Jul, [facility] [address] [facility] [id number] [address] [place] [address] Jul, Other bipolar disorder F31.8 9 and Anxiety disorder, unspecified F41.9 [facility] [address] [id number] [address] [place] [address] Jun, GERD (gastroesophageal reflu x disease) K21.9 [facility] [address] [id number] [address] [place] [address] Jun, [facility] [address] [facility] [id number] [address] [place] [address] May, [facility] [address] [facility] [id number] [address] [place] [address] May, Diabetes E11.9 ; Back pain M 54.9 ; GERD (gastroesophageal reflux disease) K21.9 ; Hypertension I10 and Peripheral neuropathy G62.9 [facility] [address] [id number] [address] [place] [address] Mar, [facility] [address] [facility] [id number] [address] [place] [address] Mar, [facility] [address] [facility] [id number] [address] [place] [address] Mar, Acute sinusitis J01.90 and O titis media, left H66.92 [facility] [address] [facility] [id number] [address] [place] [address] Feb, [facility] [address] [facility] [id number] [address] [place] [address] Feb, [facility] [address] [facility] [id number] [address] [place] [address] Feb, [facility] [address] [facility] [id number] [address] [place] [address] Feb, [facility] [address] [facility] [id number] [address] [place] [address] 29 Jan, 2015 [facility] [address] [facility] [id number] [address] [place] [address] 24 Jan, 2015 Diabetes 250.00 and Back higinio n 724.5 [facility] [address] [facility] [id number] [address] [place] [address] Jan, [facility] [address] [place] [id number] [address] [place] [address] Dec, Diabetes 250.00 ; Benign ess ential hypertension 401.1 and Allergic rhinitis 477.9 [facility] [address] [facility] [id number] [address] [place] [address] Dec, [facility] [address] [place] [id number] [address] [place] [address] Dec, [facility] [address] [place] [id number] [address] [place] [address] Dec, Psychosis 298.9 [facility] [address] [place] [id number] [place] [address] Dec, Medication side effect 995.2 0 and Generalized anxiety disorder 300.02 [facility] [address] [place] [id number] [address] [place] [address] Dec, Acquired cognitive dysfuncti on 294.9 [facility] [address] [place] [id number] [address] [place] [address] Dec, [facility] [address] [place] [id number] [address] [place] [address] Dec, Unspecified myalgia and myos itis 729.1 and Generalized anxiety disorder 300.02 [facility] [address] [place] [id number] [address] [place] [address] Nov, [facility] [address] [place] [id number] [address] [place] [address] Nov, [facility] [address] [place] [id number] [address] [place] [id number] Nov, [facility] [address] [place] [id number] [address] [place] [address] Nov, Upper respiratory infection 465.9 and Chronic airway obstruction, not elsewhere classified 496 [facility] [address] [place] [id number] [address] [place] [address] Nov, Hyponatremia 276.1 [facility] [address] [id number] [address] [place] [id number] 29 Oct, 2014 [facility] [address] [id number] [address] [place] [address] Oct, [facility] [address] [facility] [id number] [address] [place] [address] Oct, [facility] [address] [id number] [address] [place] [address] Oct, [facility] [address] [id number] [address] [place] [address] Oct, Hyponatremia 276.1 [facility] [address] [facility] [id number] [address] [place] [address] Oct, [facility] [address] [facility] [id number] [address] [place] [id number] Oct, [facility] [address] [facility] [id number] [address] [place] [address] Oct, Generalized anxiety disorder 300.02 [facility] [address] [id number] [address] [place] [address] Oct, Generalized anxiety disorder 300.02 and Diabetes 250.00 [facility] [address] [facility] [id number] [address] [place] [id number] 14 Aug, 2014 [facility] [address] [facility] [id number] [address] [place] [id number] Aug, [facility] [address] [id number] [address] [place] [address] Jul, [facility] [address] [facility] [id number] [address] [place] [address] Jul, [facility] [address] [facility] [id number] [address] [place] [address] Jun, [facility] [address] [facility] [id number] [address] [place] [address] Jun, [facility] [address] [id number] [address] [place] [address], [place] [address] Jun, [facility] [address] [id number] [address] [place] [address], [place] [address] Jun, [facility] [address] [id number] [address] [place] [address], [place] [address] Jun, [facility] [address] [id number] [address] [place] [address], [place] [address] May, [facility] [address] [id number] [address] [place] [address], [place] [address] May, [facility] [address] [id number] [address] [place] [address], [place] [address] Apr, [facility] [address] [id number] [address] [place] [address], [place] [address] Apr, [facility] [address] [id number] [address] [place] [address], [place] [address] Apr, [facility] [address] [id number] [address] [place] [address], [place] [address] Apr, [facility] [address] [id number] [address] [place] [address], [place] [address] Apr, [facility] [address] [id number] [address] [place] [address], [place] [address] Apr, [facility] [address] [id number] [address] [place] [address], [place] [address] Apr, [facility] [address] [id number] [address] [place] [address], [place] [address] Apr, [facility] [address] [id number] [address] [place] [address], [place] [address] Feb, [facility] [address] [id number] [address] [place] [address], [place] [address] Feb, [facility] [address] [id number] [address] [place] [address], [place] [address] Jan, [facility] [address] [id number] [address] [place] [address], [place] [address] Jan, [facility] [address] [id number] [address] [place] [address], [place] [address] Dec, [facility] [address] [id number] [address] [place] [address], [place] [address] Dec, [facility] [address] [id number] [address] [place] [address], [place] [address] Dec, [facility] [address] [id number] [address] [place] [address], [place] [address] Nov, [facility] [address] [id number] [address] [place] [address], [place] [address] Nov, [facility] [address] [id number] [address] [place] [address], [place] [address] Nov, [facility] [address] [id number] [address] [place] [address], [place] [address] Oct, [facility] [address] [id number] [address] [place] [address], [place] [address] Oct, [facility] [address] [id number] [address] [place] [address], [place] [address] Oct, [facility] [address] [id number] [address] [place] [address], [place] [address] September, [facility] [address] [id number] [address] [place] [address], [place] [address] September, [facility] [address] [id number] [address] [place] [address], [place] [address] September, [facility] [address] [id number] [address] [place] [address], [place] [address] Aug, [facility] [address] [id number] [address] [place] [address], [place] [address] Aug, [facility] [address] [id number] [address] [place] [address], [place] [address] Aug, [facility] [address] [id number] [address] [place] [address], [place] [address] Aug, [facility] [address] [id number] [address] [place] [address], [place] [address] Jul, [facility] [address] [id number] [address] [place] [address], [place] [address] Jun, [facility] [address] [id number] [address] [place] [address], [place] [address] 14 Jun, 2011 [facility] [address] [id number] [address] [place] [address], [place] [address] 13 Jun, 2011 [facility] [address] [id number] [address] [place] [address], [place] [address] Jun, [facility] [address] [id number] [address] [place] [address], [place] [address] Jun, [facility] [address] [id number] [address] [place] [address], [place] [address] May, [facility] [address] [id number] [address] [place] [address], [place] [address] May, [facility] [address] [id number] [address] [place] [address], [place] [address] May, [facility] [address] [id number] [address] [place] [address], [place] [address] May, [facility] [address] [id number] [address] [place] [address], [place] [address] Apr, [facility] [address] [id number] [address] [place] [address], [place] [address] Apr, [facility] [address] [id number] [address] [place] [address], [place] [address] 05 Apr, 2011 [facility] [address] [id number] [address] [place] [address] Mar, [facility] [address] [id number] [address] [place] [address], [place] [address] Mar, [facility] [address] [id number] [address] [place] [id number] Mar, [facility] [address] [id number] [address] [place] [id number] 13 Feb, 2011 [facility] [address] [id number] [address] [place] [id number] 13 Feb, 2011 [facility] [address] [id number] [address] [place] [address] Feb, [facility] [address] [id number] [address] [place] [address] Nov, [facility] [address] [id number] [address] [place] [address] September, [facility] [address] [id number] [address] [place] [address] Aug, [facility] [address] [id number] [address] [place] [address] 14 Jul, 2010 [facility] [address] [id number] [address] [place] [address] May, [facility] [address] [id number] [address] [place] [id number] 31 Apr, 2010 [facility] [address] [id number] [address] [place] [id number] 30 Apr, 2010 [facility] [address] [id number] [address] [place] [id number] 13 Apr, 2010 [facility] [address] [id number] [address] [place] [id number] Apr, [facility] [address] [id number] [address] [place] [id number] 09 Dec, 2010 IMMUNIZATIONS No Known Immunizations SOCIAL HISTORY Never Assessed REASON FOR VISIT [facility] Follow Up on Wednesday for stomach cramps and bad constipation. Instructd t o take miralax TID, started Linzess today. Reports medium formed BM this am with out difficulty. CBrumbackRN PLAN OF CARE VITAL SIGNS Height 66 in 2017-07-22 Weight 104.2 lbs 2017-07-22 Temperature 98.9 degrees Fahrenheit 2017-07-22 Heart Rate 84 bpm 2017-07-22 Respiratory Rate 18 2017-07-22 BMI 16.82 kg/m2 2017-07-22 Blood pressure systolic 124 mmHg 2017-07-22 Blood pressure diastolic 66 mmHg 2017-07-22 MEDICATIONS Medication Instructions Dosage Frequency Start Date End Date Duration S tatus Aspir-81 81 MG Orally Once a day 1 tablet 24h Active Clonidine HCl 0.1 MG TAKE ONE TABLET BY MOUTH THREE TIMES DAILY Active Atorvastatin Calcium 10 MG Orally Once a day 1 tablet 24h Active Lamictal 100 mg Orally 2 times a day for depression 1 tablet September, Active Ondansetron 4 MG Orally every 8 hrs PRN 1 tablet on the t ongue and allow to dissolve Apr, Active Vtaijilghh-HRBU-Xuvetjeg 50-325-40 MG Orally 3 times a day 1 cap yg as needed 8h Jun, Active Baclofen 20 MG Orally Three times a day 1 tablet with food or milk 8h 30 Active Metoprolol Tartrate 50 mg Orally Twice a day TAKE ONE TABLE T BY MOUTH TWICE DAILY WITH FOOD 12h Active Flonase 50 mcg/act 1 spray in each nostril 12h Apr, Active Diclofenac Sodium 1 % Transdermal Four times a day 2-4- grams to affected areas 6h Jun, 30 days Active Metformin HCl 1000 MG Orally Twice a day 1 tablet with meals 12h Aug, 30 day(s) Active Breo Ellipta 200-25 MCG/INH Inhalation Once a day 1 puff 24h Dec, September, 30 days Active Lisinopril 30 MG Orally Once a day 1 tablet 24h Active Cetirizine HCl 10 mg Orally Once a day 1 tablet 24h Apr, 30 day(s) Active Multivitamin Adult - Act minoo Levemir FlexTouch 100 UNIT/ML Subcutaneous Once a day 7 units 24h September, 30 days Active Nebulizer 1 as directed Jul, Act minoo Gabapentin 800 MG Orally Three times a day 1 tablet 8h 18 Jul, 2015 Active Loxapine Succinate 10 mg Orally twice a day for mood 1 capsule Active Trazodone HCl 100 mg Orally for sleep 1 tablet at bedtime Jan Active Singulair 10 mg Orally Once a day 1 tablet in the evening 24h Oct, 30 day(s) Active Amlodipine Besylate 5 MG Orally Once a day 1 tablet 24h Active Ibuprofen 600 MG TAKE ONE TABLET BY MOUTH THREE TIMES DAILY 33 Active Mucinex 600 MG Orally every 12 hrs 1 tablet as needed 12h Active Benztropine Mesylate 0.5 MG Orally 3 times a day-Q AM, 4pm and bedtime for restlessness 1 tablet Mar, Active Nexium 40 mg 1 capsule 24h Active BusPIRone HCl 15 mg Orally 3 times a day for anxiety 1 tablet Jan, Active Lorazepam 2 MG Orally in the AM and noon and 4pm 1 tablet Jul, 30 days Active Orient 7.5-325 MG Orally 3 times a day 1 tablet as needed 8h Jul, 28 days Active Xopenex 1.25 MG/3ML Inhalation 4 times a day prn 3 ml Dec, 30 days Active Gaviscon 80-14.2 MG Orally 4 times a day 4 tablet 6h Active Hyoscyamine Sulfate 0.125 MG Orally Four times a day 1 tablet as ne eded 6h Jul, Active Adderall XR 20 mg Orally Once a day for depression 1 capsule in the morning Jul, 28 days Active Incruse Ellipta 62.5 MCG/INH 1 puff 24h Active MiraLax - Orally Once a day 17 grams 24h 30 days Not -Taking Ventolin HFA 108 (90 Base) MCG/ACT Inhalation every 4 hrs 2 puffs a s needed 4h Dec, Active Linzess 290 MCG Orally Once a day 1 capsule 24h Jul, 30 day(s) Active Calcium 600 + D 600-200 MG-UNIT Active Insulin Pen Needle 32G X 6 MM as directed 24h Oct, Active Glucosamine 1000 MG Orally Once a day 2 capsules 24h Active RESULTS No Results PROCEDURES Procedure Date Ordered Result Body Site [facility] VISIT ESTABLISHED PATIENT July 22, 2017 INSTRUCTIONS MEDICATIONS ADMINISTERED No Known [...]
--- OUTSIDE RECORDS SUMMARY | 2019-07-17 11:14 | XMS REPORT ---
Author Author Sujey MEDINA Organization [facility] Address [address] [place] [address] Care Team Providers Care Professional Nursing Assistant Name Role Phone JAKI MEDINA Unavailable PROBLEMS Type Condition ICD9-CM Code [id number] Code Onset Dates Condition S tatus SNOMED Code Problem Back pain M54.9 Active 527862956 Problem Diabetes E11.9 Active 25918988 Problem GERD (gastroesophageal reflux disease) K21.9 Active 654351405 Problem Hypertension I10 Active 2134158 3 Problem Anxiety disorder, unspecified F41.9 Active 999239236 Problem Other bipolar disorder F31.89 Active 13330785 Problem Fibromyalgia M79.7 Active 0183400 7 Problem Panic disorder with agoraphobia F40.01 Active 75296750 Problem Panlobular emphysema J43.1 Active 4650752 Problem Chronic obstructive pulmonary disease, unspecified J44.9 Active 86005608 Problem Akathisia G25.71 Active 987148455 Problem Lumbago with sciatica, left side M54.42 Active 801155346 Problem Migraine without aura and without status migrain osus, not intractable G43.009 Active 877523334 Problem Fibrocystic disease of right breast N60.11 Active 36950622 Problem Fibrocystic disease of left breast N60.12 Active 60961475 Problem Slow transit constipation K59.01 Acti ve 36765294 Problem Essential tremor G25.0 Active 609 526906 Problem Bipolar 1 disorder, depressed, moderate F31.32 Active 79815773 Problem Other chronic pain G89.29 Active 8 3678282 Problem Lumbago with sciatica, right side M54.41 Active 074230230 Problem Irritable bowel syndrome with constipation K58.1 Active 669857382 Problem Arthritis M19.90 Active 7267711 Problem Schizoaffective disorder, bipolar type F25.0 Active 14332155 Problem Irritable bowel syndrome with both constipation and diarrh ea K58.2 Active 35573149 Problem Attention deficit hyperactiv ity disorder (ADHD), predominantly inattentive type F90.0 Active 82839662 Problem Bipolar I disorder with depression F31.9 Active 18949813 Problem Chronic post-traumatic stress disorder (PTSD) F43. 12 Active 778143177 Problem Bipolar affective disorder, remission status unspecified F31.9 Active 07827333 Problem Mild persistent asthma without complication J45.30 Active 713419491 Problem Moderate persistent asthma without complication J4 5.40 Active 217570856 Problem Acute non-recurrent maxillary sinusitis J01.00 Active 38660350 Problem Bipolar 1 disorder, depressed, partial remission F 31.75 Active 70443235 ALLERGIES No Information ENCOUNTERS Encounter Location Date Diagnosis [facility] [address] [id number] [address] [place] [id number] Nov, [facility] [address] [id number] [address] [place] [id number] Nov, [facility] [address] [id number] [address] [place] [id number] Nov, [facility] [address] [id number] [address] [place] [id number] Nov, [facility] [address] [id number] [address] [place] [id number] Nov, [facility] [address] [id number] [address] [place] [phone] Nov, [facility] [address] [id number] [address] [place] [id number] Nov, [facility] [address] [id number] [address] [place] [id number] Nov, Mild persistent asthma witho ut complication J45.30 and Irritable bowel syndrome with both constipation and diarrhea K58.2 [facility] [address] [id number] [address] [place] [id number] Nov, [facility] [address] [id number] [address] [place] [phone] Oct, [facility] [address] [place] [id number] [address] [place] [id number] 29 Oct, 2017 [facility] [address] [place] [id number] [address] [place] [id number] Oct, Type 2 diabetes mellitus wit h diabetic neuropathy, unspecified 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 insulin 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 E11.40 ; Diabetes E11.9 ; Slow transit constipation K59.01 ; Edema of both legs R60.0 and Dysfunction of right eustachian tube H69.81 [facility] [address] [facility] [id number] [address] [place] [id number] Oct, Frequent headaches R51 [facility] [address] [id number] [address] [place] [id number] Oct, [facility] [address] [place] [id number] [address] [place] [id number] Oct, [facility] [address] [place] [id number] [address] [place] [id number] Oct, [facility] [address] [facility] [id number] [address] [place] [id number] Oct, [facility] [address] [place] [id number] [address] [place] [id number] Oct, [facility] [address] [place] [id number] [address] [place] [id number] 14 Oct, 2017 [facility] [id number] [place] [id number] Oct, [facility] [address] [facility] [id number] [address] [place] [id number] Oct, [facility] [address] [place] [id number] [address] [place] [id number] September, Frequent headaches R51 [facility] [address] [facility] [id number] [address] [place] [id number] September, Bilateral otitis media with effusion H65.93 ; Dizziness R42 and Essential tremor G25.0 [facility] [address] [facility] [id number] [address] [place] [id number] September, Chronic obstructive pulmonar y disease, unspecified COPD type J44.9 [facility] [address] [id number] [address] [place] [id number] September, Chronic obstructive pulmonar y disease, unspecified COPD type J44.9 [facility] [address] [facility] [id number] [address] [place] [id number] September, Migraine without aura and wi thout status migrainosus, not intractable G43.009 [facility] [address] [facility] [id number] [address] [place] [id number] September, [facility] [address] [facility] [id number] [address] [place] [phone] September, [facility] [address] [facility] [id number] [address] [place] [id number] September, [facility] [address] [facility] [id number] [address] [place] [id number] September, Frequent headaches R51 [facility] [address] [facility] [id number] [address] [place] [id number] Aug, [facility] [address] [facility] [id number] [address] [place] [id number] Aug, Breast mass, right N63.10 [facility] [address] [facility] [id number] [address] [place] [id number] Aug, Breast lump N63.0 [facility] [address] [facility] [id number] [address] [place] [id number] Aug, [facility] [address] [facility] [id number] [address] [place] [id number] Aug, Bipolar affective disorder, remission status unspecified F31.9 and Diabetes E11.9 [facility] [address] [facility] [id number] [address] [place] [id number] Aug, Diabetes E11.9 ; Schizoaffec tive disorder, bipolar type F25.0 ; Pharyngitis due to other organism J02.8 ; Panlobular emphysema J43.1 and Irritable bowel syndrome with both constipation and diarrhea K58.2 [facility] [address] [id number] [address] [place] [id number] Aug, Abnormal mammogram R92.8 [place] [address] [id number] [address] [place] [id number] Aug, [place] [address] [id number] [address] [place] [id number] Aug, Bipolar 1 disorder, depresse d, moderate F31.32 ; Panic disorder with agoraphobia F40.01 and Chronic post-traumatic stress disorder (PTSD) F43.12 [place] [address] [id number] [address] [place] [id number] Aug, [place] [address] [id number] [address] [place] [id number] Aug, [place] [address] [id number] [address] [place] [id number] Aug, [place] [address] [id number] [address] [place] [id number] Jul, [place] [address] [id number] [address] [place] [id number] Jul, Mild persistent asthma witho ut complication J45.30 [place] [address] [id number] [address] [place] [id number] 19 Jul, 2017 Mild persistent asthma witho ut complication J45.30 [place] [address] [facility] [id number] [address] [place] [id number] 15 Jul, 2017 Bipolar affective disorder, remission status unspecified F31.9 ; Diabetes E11.9 and Irritable bowel syndrome with constipation K58.1 [place] [address] [id number] [address] [place] [id number] Jul, [facility] [address] [id number] [address] [place] [id number] Jul, [facility] [address] [facility] [id number] [address] [place] [id number] Jul, Frequent headaches R51 [facility] [address] [facility] [id number] [address] [place] [id number] Jul, [facility] [address] [facility] [id number] [address] [place] [id number] Jul, [facility] [address] [facility] [id number] [address] [place] [id number] Jul, [facility] [address] [facility] [id number] [address] [place] [id number] Jul, Frequent headaches R51 ; Fib rocystic disease of left breast N60.12 ; Fibrocystic disease of right breast N60.11 and Diabetes E11.9 [facility] [address] [facility] [id number] [address] [place] [id number] Jul, [facility] [address] [facility] [id number] [address] [place] [id number] Jul, [facility] [address] [facility] [id number] [address] [place] [id number] 21 Jun, 2017 Exudative tonsillitis J03.90 [facility] [address] [facility] [id number] [address] [place] [id number] Jun, [facility] [address] [facility] [id number] [address] [place] [id number] 19 Jun, 2017 [facility] [address] [facility] [id number] [address] [place] [id number] 15 Jun, 2017 Mild persistent asthma witho ut complication J45.30 ; Chronic obstructive pulmonary disease, unspecified COPD type J44.9 and Exudative tonsillitis J03.90 [facility] [address] [facility] [id number] [address] [place] [id number] 13 Jun, 2017 Encounter for immunization Z 23 [facility] [address] [facility] [id number] [address] [place] [id number] 12 Jun, 2017 [facility] [address] [facility] [id number] [address] [place] [id number] 12 Jun, 2017 [facility] [address] [facility] [id number] [address] [place] [id number] Jun, [facility] [address] [facility] [id number] [address] [place] [id number] Jun, Tonsillitis J03.90 [facility] [address] [facility] [id number] [address] [place] [id number] Jun, [facility] [address] [facility] [id number] [place] [id number] Jun, Acute non-recurrent maxillar y sinusitis J01.00 [facility] [address] [facility] [id number] [address] [place] [phone] Jun, [facility] [address] [facility] [id number] [address] [place] [id number] May, [facility] [address] [place] [id number] [address] [place] [id number] May, [facility] [address] [place] [id number] [place] [phone] May, GERD (gastroesophageal reflu x disease) K21.9 [facility] [address] [facility] [id number] [address] [place] [id number] May, Migraine without aura and wi thout status migrainosus, not intractable G43.009 [facility] [address] [facility] [id number] [address] [place] [id number] May, [facility] [address] [facility] [id number] [address] [place] [id number] May, [facility] [address] [place] [id number] [address] [place] [id number] May, Panlobular emphysema J43.1 a nd Acute non-recurrent maxillary sinusitis J01.00 [facility] [address] [facility] [id number] [address] [place] [id number] May, Bipolar 1 disorder, depresse d, moderate F31.32 ; Panic disorder with agoraphobia F40.01 and Akathisia G25.71 [facility] [address] [facility] [id number] [address] [place] [id number] Apr, [facility] [address] [facility] [id number] [address] [place] [id number] Apr, [place] [address] [place] [id number] [place] [id number] Apr, Acute non-recurrent maxillar y sinusitis J01.00 [place] [address] [place] [id number] [address] [place] [id number] Apr, Panlobular emphysema J43.1 [facility] [address] [facility] [id number] [address] [place] [id number] Apr, [facility] [address] [place] [id number] [address] [place] [id number] Apr, Exudative tonsillitis J03.90 and Sore throat J02.9 [place] [address] [place] [id number] [address] [place] [id number] 17 Mar, 2017 [facility] [address] [facility] [id number] [address] [place] [id number] Mar, Acute non-recurrent maxillar y sinusitis J01.00 [facility] [address] [facility] [id number] [address] [place] [id number] Mar, [facility] [address] [facility] [id number] [address] [place] [id number] 09 Mar, 2017 Panlobular emphysema J43.1 a nd Diabetes E11.9 [facility] [address] [facility] [id number] [address] [place] [id number] Mar, [facility] [address] [facility] [id number] [address] [place] [id number] Feb, Wheezing R06.2 and Acute rec urrent pansinusitis J01.41 [facility] [address] [place] [id number] [address] [place] [id number] Feb, [facility] [address] [facility] [id number] [place] [phone] Feb, Acute non-recurrent maxillar y sinusitis J01.00 [place] [address] [address] Feb, Chronic obstructive pulmonar y disease, unspecified J44.9 [facility] [address] [id number] 02 Feb, 2017 Hypoxemia R09.02 and Chronic obstructive pulmonary disease, unspecified J44.9 [facility] [address] [place] [id number] [address] [place] [id number] 28 Jan, 2017 Bipolar 1 disorder, depresse d, moderate F31.32 ; Panic disorder with agoraphobia F40.01 ; Chronic post-traumatic stress disorder (PTSD) F43.12 ; Diabetes E11.9 and Moderate persistent asthma without complication J45.40 [facility] [id number] [place] [id number] Jan, [facility] [address] [place] [id number] [address] [place] [id number] 19 Jan, 2017 Acute non-recurrent maxillar y sinusitis J01.00 [facility] [address] [place] [id number] [address] [place] [id number] 18 Jan, 2017 [facility] [address] [place] [id number] [address] [place] [id number] 18 Jan, 2017 [facility] [address] [id number] Jan, Moderate persistent asthma w ithout complication J45.40 and Hypoxemia R09.02 [facility] [address] [id number] [address] [place] [id number] Jan, Moderate persistent asthma w ithout complication J45.40 and Hypoxemia R09.02 [facility] [address] [id number] [address] [place] [id number] Jan, [facility] [address] [id number] [address] [place] [id number] Dec, Acute non-recurrent maxillar y sinusitis J01.00 [facility] [address] [id number] [address] [place] [id number] Dec, Chronic obstructive pulmonar y disease, unspecified J44.9 [facility] [address] [id number] [address] [place] [id number] Dec, [facility] [address] [id number] [address] [place] [id number] Dec, Mild persistent asthma witho ut complication J45.30 and Other chronic pain G89.29 [facility] [address] [id number] [address] [place] [id number] Nov, [facility] [address] [id number] [address] [place] [id number] Nov, Acute non-recurrent maxillar y sinusitis J01.00 [facility] [address] [id number] [address] [place] [id number] Nov, [facility] [address] [id number] [address] [place] [id number] Nov, [facility] [address] [id number] [address] [place] [id number] Oct, [facility] [address] [id number] [address] [place] [id number] Oct, Bipolar 1 disorder, depresse d, partial remission F31.75 ; Panic disorder with agoraphobia F40.01 and Chronic post-traumatic stress disorder (PTSD) F43.12 [place] [address] [facility] [id number] [address] [place] [id number] Oct, Acute non-recurrent maxillar y sinusitis J01.00 [facility] [address] [facility] [id number] [address] [place] [id number] Oct, [facility] [address] [facility] [id number] [address] [place] [id number] Oct, Diabetes E11.9 [place] [address] [facility] [id number] [address] [place] [id number] September, Diabetes E11.9 [place] [address] [facility] [id number] [address] [place] [id number] September, Diabetes E11.9 and Sinus tac hycardia R00.0 [place] [address] [facility] [id number] [address] [place] [id number] September, [place] [address] [facility] [id number] [address] [place] [id number] September, [facility] [address] [facility] [id number] [address] [place] [id number] Aug, Diabetes E11.9 and Lumbago w ith sciatica, right side M54.41 [place] [address] [place] [id number] [address] [place] [id number] Aug, [place] [address] [place] [id number] [address] [place] [id number] Jul, Bipolar 1 disorder, depresse d, moderate F31.32 ; Panic disorder with agoraphobia F40.01 and Chronic post-traumatic stress disorder (PTSD) F43.12 [facility] [address] [facility] [id number] [address] [place] [id number] Jul, Sore throat J02.9 [facility] [address] [facility] [id number] [address] [place] [id number] Jul, [facility] [address] [id number] [address] [place] [id number] Jul, [facility] [address] [id number] [address] [place] [id number] Jul, [facility] [address] [facility] [id number] [address] [place] [id number] Jul, [facility] [address] [id number] [address] [place] [id number] Jul, Sore throat J02.9 and Pharyn gitis, unspecified etiology J02.9 [facility] [address] [id number] [address] [place] [id number] Jun, [facility] [address] [facility] [id number] [address] [place] [id number] Jun, Diabetes E11.9 [facility] [address] [id number] [address] [place] [id number] Jun, [facility] [address] [id number] [address] [place] [id number] Jun, [facility] [address] [id number] [address] [place] [phone] Jun, [facility] [address] [id number] [address] [place] [phone] Jun, [facility] [address] [id number] [address] [place] [phone] Jun, [facility] [address] [id number] [address] [place] [id number] Jun, [facility] [address] [id number] [address] [place] [id number] Jun, [facility] [address] [id number] [address] [place] [id number] Jun, [facility] [address] [place] [id number] [address] [place] [id number] May, Diabetes E11.9 ; Other chron ic pain G89.29 ; Acute recurrent maxillary sinusitis J01.01 ; Bipolar I disorder with depression F31.9 and Anxiety disorder, unspecified F41.9 [place] [address] [place] [id number] [address] [place] [id number] May, [place] [address] [place] [id number] [place] [phone] May, Diabetes E11.9 ; Bipolar I d isorder with depression F31.9 ; Anxiety disorder, unspecified F41.9 ; Other chronic pain G89.29 and Acute recurrent maxillary sinusitis J01.01 [place] [address] [place] [id number] [address] [place] [id number] May, [place] [address] [id number] May, Attention deficit hyperactiv ity disorder (ADHD), predominantly inattentive type F90.0 [place] [id number] [place] [id number] May, [place] [address] [place] [id number] [place] [phone] Apr, Attention deficit hyperactiv ity disorder (ADHD), predominantly inattentive type F90.0 and Non-seasonal allergic rhinitis due to other allergic trigger J30.89 [place] [address] [place] [id number] [address] [place] [id number] 15 Apr, 2016 Bipolar 1 disorder, depresse d, moderate F31.32 ; Panic disorder with agoraphobia F40.01 and Chronic post-traumatic stress disorder (PTSD) F43.12 [place] [address] [place] [id number] [address] [place] [id number] 06 Apr, 2016 Dental examination Z01.20 [place] [address] [place] [id number] [address] [place] [id number] Mar, [place] [address] [id number] [address] [place] [id number] Mar, [facility] [address] [id number] [address] [place] [id number] Mar, Bipolar I disorder with depr ession F31.9 and Anxiety disorder, unspecified F41.9 [facility] [address] [id number] [address] [place] [id number] 08 Mar, 2016 Panic disorder with agorapho syd F40.01 ; Bipolar 1 disorder, depressed, moderate F31.32 and Chronic post-traumatic stress disorder (PTSD) F43.12 [place] [address] [id number] [address] [place] [id number] Mar, [facility] [address] [id number] [address] [place] [id number] Mar, Dental caries K02.9 [facility] [address] [id number] [address] [place] [id number] 24 Feb, 2016 Lumbago with sciatica, left side M54.42 ; Lumbago with sciatica, right side M54.41 and Other chronic pain G89.29 [facility] [address] [id number] [address] [place] [id number] Feb, [facility] [address] [id number] [address] [place] [id number] Feb, [facility] [address] [id number] [address] [place] [id number] 13 Feb, 2016 Bipolar I disorder with depr ession F31.9 ; PTSD (post-traumatic stress disorder) F43.10 and Mood disorder F39 [facility] [address] [id number] [address] [place] [id number] Feb, [facility] [address] [id number] [address] [place] [id number] 11 Feb, 2016 Dental examination Z01.20 [facility] [address] [id number] [address] [place] [id number] Feb, [facility] [address] [facility] [id number] [address] [place] [id number] Feb, Acute bronchitis, unspecifie d organism J20.9 [facility] [address] [facility] [id number] [address] [place] [id number] Jan, Mood disorder F39 ; Migraine without aura and without status migrainosus, not intractable G43.009 ; Irritable bowel syndrome, unspecified type K58.9 ; Diabetes E11.9 and Encounter for immunization Z23 [facility] [address] [facility] [id number] [address] [place] [id number] Jan, [facility] [address] [place] [id number] [address] [place] [phone] Jan, [facility] [address] [address] Jan, [facility] [address] [place] [address] [id number] [address] [place] [phone] Jan, [facility] [address] [place] [address] [id number] [address] [place] [id number] Jan, [facility] [address] [place] [id number] [address] [place] [id number] Dec, Bipolar I disorder with depr ession F31.9 ; PTSD (post-traumatic stress disorder) F43.10 and Panic disorder with agoraphobia F40.01 [facility] [address] [facility] [id number] [address] [place] [id number] Dec, Chronic obstructive pulmonar y disease, unspecified COPD type J44.9 ; Tremor R25.1 and Anxiety F41.9 [facility] [address] [place] [address] [id number] [address] [place] [id number] Dec, [facility] [address] [place] [address] [id number] [address] [place] [id number] Nov, Tremors of nervous system R2 5.1 and Cramping of feet R25.2 [facility] [address] [id number] [address] [place] [id number] Nov, [facility] [address] [id number] [address] [place] [id number] Nov, [facility] [address] [id number] [address] [place] [id number] Oct, Chronic obstructive pulmonar y disease, unspecified J44.9 [facility] [address] [id number] [address] [place] [id number] Oct, [facility] [address] [id number] [address] [place] [id number] Oct, Tremor R25.1 [facility] [address] [facility] [id number] [address] [place] [id number] Oct, Bipolar I disorder with depr ession F31.9 ; Diabetes E11.9 ; PTSD (post-traumatic stress disorder) F43.10 and Panic disorder with agoraphobia F40.01 [facility] [address] [id number] [address] [place] [id number] Oct, Mood disorder F39 [place] [address] [facility] [id number] [address] [place] [id number] September, [facility] [address] [id number] [address] [place] [id number] September, Diabetes E11.9 ; Bipolar I d isorder with depression F31.9 ; PTSD (post-traumatic stress disorder) F43.10 and Panic disorder with agoraphobia F40.01 [facility] [address] [id number] [address] [place] [id number] September, Mood disorder F39 ; Schizoaf fective disorder, unspecified type F25.9 ; Arthritis M19.90 ; Tremor R25.1 ; Acute non-recurrent frontal sinusitis J01.10 and Blood in stool K92.1 [facility] [address] [id number] [address] [place] [id number] September, [facility] [address] [id number] [address] [place] [id number] September, Chronic obstructive pulmonar y disease, unspecified J44.9 [facility] [address] [id number] [address] [place] [id number] September, Diabetes E11.9 [facility] [address] [id number] [address] [place] [id number] Aug, Other bipolar disorder F31.8 9 and Anxiety disorder, unspecified F41.9 [facility] [address] [id number] [address] [place] [phone] Aug, [facility] [address] [id number] [address] [place] [id number] Aug, Diabetes E11.9 [facility] [address] [id number] [address] [place] [id number] 18 Aug, 2015 [facility] [address] [id number] [address] [place] [id number] 14 Aug, 2015 Diabetes E11.9 ; Fatigue R53 .83 and Dizziness R42 [facility] [address] [id number] [address] [place] [id number] Aug, Other bipolar disorder F31.8 9 [facility] [address] [id number] [address] [place] [id number] Aug, Generalized anxiety disorder F41.1 [facility] [address] [id number] [address] [place] [id number] 07 Aug, 2015 Other bipolar disorder F31.8 9 and Anxiety disorder, unspecified F41.9 [facility] [address] [id number] [address] [place] [id number] Aug, [facility] [address] [id number] [address] [place] [id number] Jul, [facility] [address] [facility] [id number] [address] [place] [phone] Jul, [facility] [address] [facility] [id number] [address] [place] [id number] Jul, Bronchitis J40 [facility] [address] [facility] [id number] [address] [place] [id number] Jul, Anxiety disorder F41.9 [facility] [address] [facility] [id number] [address] [place] [id number] Jul, Other bipolar disorder F31.8 9 and Anxiety disorder, unspecified F41.9 [facility] [address] [facility] [id number] [address] [place] [id number] Jul, Other bipolar disorder F31.8 9 and Fibromyalgia M79.7 [facility] [address] [place] [id number] [address] [place] [id number] Jul, [facility] [address] [place] [address] [id number] [address] [place] [id number] Jul, [facility] [address] [place] [id number] [address] [place] [id number] Jul, [facility] [address] [place] [address] [id number] [address] [place] [id number] Jul, Other bipolar disorder F31.8 9 and Anxiety disorder, unspecified F41.9 [facility] [address] [place] [id number] [address] [place] [id number] Jun, GERD (gastroesophageal reflu x disease) K21.9 [facility] [address] [facility] [id number] [address] [place] [id number] Jun, [facility] [address] [facility] [id number] [address] [place] [id number] May, [facility] [address] [place] [id number] [address] [place] [id number] May, Diabetes E11.9 ; Back pain M 54.9 ; GERD (gastroesophageal reflux disease) K21.9 ; Hypertension I10 and Peripheral neuropathy G62.9 [facility] [address] [id number] [address] [place] [id number] Mar, [facility] [address] [id number] [address] [place] [id number] Mar, [facility] [address] [facility] [id number] [address] [place] [id number] Mar, Acute sinusitis J01.90 and O titis media, left H66.92 [facility] [address] [id number] [address] [place] [id number] Feb, [facility] [address] [id number] [address] [place] [id number] Feb, [facility] [address] [facility] [id number] [address] [place] [id number] Feb, [facility] [address] [facility] [id number] [address] [place] [id number] Feb, [facility] [address] [facility] [id number] [address] [place] [id number] Jan, [facility] [address] [facility] [id number] [address] [place] [id number] Jan, Diabetes 250.00 and Back higinio n 724.5 [facility] [address] [facility] [id number] [address] [place] [id number] Jan, [facility] [address] [facility] [id number] [address] [place] [id number] Dec, Diabetes 250.00 ; Benign ess ential hypertension 401.1 and Allergic rhinitis 477.9 [facility] [address] [id number] [address] [place] [id number] Dec, [facility] [address] [facility] [id number] [address] [place] [id number] Dec, [facility] [address] [facility] [id number] [address] [place] [id number] Dec, Psychosis 298.9 [facility] [address] [id number] [address] [place] [id number] Dec, Medication side effect 995.2 0 and Generalized anxiety disorder 300.02 [facility] [address] [id number] [address] [place] [id number] Dec, Acquired cognitive dysfuncti on 294.9 [facility] [address] [facility] [id number] [address] [place] [id number] Dec, [facility] [address] [facility] [id number] [address] [place] [id number] Dec, Unspecified myalgia and myos itis 729.1 and Generalized anxiety disorder 300.02 [facility] [address] [facility] [id number] [address] [place] [id number] Nov, [facility] [address] [facility] [id number] [address] [place] [id number] Nov, [facility] [address] [facility] [id number] [address] [place] [phone] Nov, [facility] [address] [facility] [id number] [address] [place] [id number] Nov, Upper respiratory infection 465.9 and Chronic airway obstruction, not elsewhere classified 496 [facility] [address] [facility] [id number] [address] [place] [id number] Nov, Hyponatremia 276.1 [facility] [address] [facility] [id number] [address] [place] [id number] Oct, [facility] [address] [facility] [id number] [address] [place] [id number] Oct, [facility] [address] [facility] [id number] [address] [place] [id number] Oct, [facility] [address] [facility] [id number] [address] [place] [phone] Oct, [facility] [address] [facility] [id number] [address] [place] [phone] 04 Oct, 2014 Hyponatremia 276.1 [facility] [address] [facility] [id number] [address] [place] [id number] Oct, [facility] [address] [facility] [id number] [address] [place] [id number] Oct, [facility] [address] [facility] [id number] [address] [place] [id number] Oct, Generalized anxiety disorder 300.02 [facility] [address] [facility] [id number] [address] [place] [id number] Oct, Generalized anxiety disorder 300.02 and Diabetes 250.00 [facility] [address] [facility] [id number] [address] [place] [phone] Aug, [facility] [address] [facility] [id number] [address] [place] [id number] Aug, [facility] [address] [facility] [id number] [address] [place] [id number] Jul, [facility] [address] [facility] [id number] [address] [place] [id number] Jul, [facility] [address] [facility] [id number] [address] [place] [id number] Jun, [facility] [address] [facility] [id number] [address] [place] [id number] Jun, [facility] [address] [facility] [id number] [address] [place] [id number] Jun, [facility] [address] [facility] [id number] [address] [place] [id number] Jun, [facility] [address] [facility] [id number] [address] [place] [phone] Jun, [facility] [address] [facility] [id number] [address] [place] [phone] May, [facility] [address] [id number] [address] [place] [address], [place] [address] May, [facility] [address] [id number] [address] [place] [address], [place] [address] Apr, [facility] [address] [id number] [address] [place] [address], [place] [address] Apr, [facility] [address] [id number] [address] [place] [address], [place] [address] Apr, [facility] [address] [id number] [address] [place] [address], [place] [address] Apr, [facility] [address] [id number] [address] [place] [address], [place] [address] Apr, [facility] [address] [id number] [address] [place] [address], [place] [address] Apr, [facility] [address] [id number] [address] [place] [address], [place] [address] Apr, [facility] [address] [id number] [address] [place] [address], [place] [address] Apr, [facility] [address] [id number] [address] [place] [address], [place] [address] Feb, [facility] [address] [id number] [address] [place] [address], [place] [address] Feb, [facility] [address] [id number] [address] [place] [address], [place] [address] Jan, [facility] [address] [id number] [address] [place] [address], [place] [address] Jan, [facility] [address] [id number] [address] [place] [address], [place] [address] Dec, [facility] [address] [id number] [address] [place] [address], [place] [address] Dec, [facility] [address] [id number] [address] [place] [address] [place] [address] Dec, [facility] [address] [id number] [address] [place] [address], [place] [address] Nov, [facility] [address] [id number] [address] [place] [address], [place] [address] Nov, [facility] [address] [id number] [address] [place] [address], [place] [address] Nov, [facility] [address] [id number] [address] [place] [address], [place] [address] Oct, [facility] [address] [id number] [address] [place] [address], [place] [address] Oct, [facility] [address] [id number] [address] [place] [address], [place] [address] Oct, [facility] [address] [id number] [address] [place] [address], [place] [address] September, [facility] [address] [id number] [address] [place] [address], [place] [address] September, [facility] [address] [id number] [address] [place] [address], [place] [address] September, [facility] [address] [id number] [address] [place] [address], [place] [address] Aug, [facility] [address] [id number] [address] [place] [address], [place] [address] Aug, [facility] [address] [id number] [address] [place] [address], [place] [address] Aug, [facility] [address] [id number] [address] [place] [address], [place] [address] 16 Aug, 2011 [facility] [address] [id number] [address] [place] [address], [place] [address] Jul, [facility] [address] [id number] [address] [place] [address], [place] [address] Jun, [facility] [address] [id number] [address] [place] [address], [place] [address] 14 Jun, 2011 [facility] [address] [id number] [address] [place] [address], [place] [address] 13 Jun, 2011 [facility] [address] [id number] [address] [place] [address], [place] [address] 07 Jun, 2011 [facility] [address] [id number] [address] [place] [address], [place] [address] 03 Jun, 2011 [facility] [address] [id number] [address] [place] [address], [place] [address] 13 May, 2011 [facility] [address] [id number] [address] [place] [address], [place] [address] May, [facility] [address] [id number] [address] [place] [address], [place] [address] May, [facility] [address] [id number] [address] [place] [address], [place] [address] May, [facility] [address] [id number] [address] [place] [address], [place] [address] Apr, [facility] [address] [id number] [address] [place] [address], [place] [address] Apr, [facility] [address] [id number] [address] [place] [address], [place] [address] Apr, [facility] [address] [id number] [address] [place] [address], [place] [address] Mar, [facility] [address] [id number] [address] [place] [address], [place] [address] Mar, [facility] [address] [id number] [address] [place] [address], [place] [address] Mar, [facility] [address] [id number] [address] [place] [address], [place] [address] Feb, [facility] [address] [id number] [address] [place] [id number] 13 Feb, 2011 [facility] [address] [id number] [address] [place] [id number] 13 Feb, 2011 [facility] [address] [id number] [address] [place] [id number] Nov, [facility] [address] [id number] [address] [place] [id number] September, [facility] [address] [id number] [address] [place] [id number] Aug, [facility] [address] [id number] [address] [place] [id number] Jul, [facility] [address] [id number] [address] [place] [id number] May, [facility] [address] [id number] [address] [place] [phone] Apr, [facility] [address] [id number] [address] [place] [phone] Apr, [facility] [address] [id number] [address] [place] [id number] Apr, [facility] [address] [id number] [address] [place] [phone] Apr, [facility] [address] [id number] [address] [place] [id number] Apr, IMMUNIZATIONS No Known Immunizations SOCIAL HISTORY Never Assessed REASON FOR VISIT Requests return call PLAN OF CARE VITAL SIGNS MEDICATIONS Medication Instructions Dosage Frequency Start Date End Date Duration S tatus MiraLax - Orally 3 times a day 17 grams 8h 30 days Active RESULTS No Results PROCEDURES [...]
--- OUTSIDE RECORDS SUMMARY | 2019-07-17 11:15 | XMS REPORT ---
Author Author Sujey WILLS Organization [facility] Address [address] [place] [address] Care Team Providers Care Generalist Name Role Phone JOHANNGISELEYVON Unavailable PROBLEMS Type Condition ICD9-CM Code RIX33-NP Code Onset Dates Condition S tatus SNOMED Code Problem Back pain M54.9 Active 377277420 Problem Diabetes E11.9 Active 12307832 Problem GERD (gastroesophageal reflux disease) K21.9 Active 895658241 Problem Hypertension I10 Active 0913891 3 Problem Anxiety disorder, unspecified F41.9 Active 822956340 Problem Other bipolar disorder F31.89 Active 04761924 Problem Fibromyalgia M79.7 Active 7807948 7 Problem Panic disorder with agoraphobia F40.01 Active 09044902 Problem Panlobular emphysema J43.1 Active 4796160 Problem Chronic obstructive pulmonary disease, unspecified J44.9 Active 32707860 Problem Akathisia G25.71 Active 860666051 Problem Lumbago with sciatica, left side M54.42 Active 655244378 Problem Migraine without aura and without status migrain osus, not intractable G43.009 Active 956293613 Problem Fibrocystic disease of right breast N60.11 Active 70005777 Problem Fibrocystic disease of left breast N60.12 Active 76869429 Problem Slow transit constipation K59.01 Acti ve 86428784 Problem Essential tremor G25.0 Active 609 507487 Problem Bipolar 1 disorder, depressed, moderate F31.32 Active 47969575 Problem Other chronic pain G89.29 Active 8 4784076 Problem Lumbago with sciatica, right side M54.41 Active 817324677 Problem Irritable bowel syndrome with constipation K58.1 Active 519134482 Problem Arthritis M19.90 Active 1712952 Problem Schizoaffective disorder, bipolar type F25.0 Active 97727762 Problem Irritable bowel syndrome with both constipation and diarrh ea K58.2 Active 15606288 Problem Attention deficit hyperactiv ity disorder (ADHD), predominantly inattentive type F90.0 Active 68956573 Problem Bipolar I disorder with depression F31.9 Active 94082216 Problem Chronic post-traumatic stress disorder (PTSD) F43. 12 Active 957489457 Problem Bipolar affective disorder, remission status unspecified F31.9 Active 74452387 Problem Mild persistent asthma without complication J45.30 Active 854324110 Problem Moderate persistent asthma without complication J4 5.40 Active 194193810 Problem Acute non-recurrent maxillary sinusitis J01.00 Active 23159028 Problem Bipolar 1 disorder, depressed, partial remission F 31.75 Active 74798980 ALLERGIES No Information ENCOUNTERS Encounter Location Date Diagnosis [place] [address] [address] [facility] [id number] [address] [place] [address] Nov, [place] [address] [address] [facility] [id number] [address] [place] [phone] Nov, [place] [address] [address] [facility] [id number] [address] [place] [address] Nov, [place] [address] [address] [facility] [id number] [address] [place] [phone] Nov, Mild persistent asthma witho ut complication J45.30 and Irritable bowel syndrome with both constipation and diarrhea K58.2 [place] [address] [address] [facility] [id number] [address] [place] [phone] Nov, [place] [address] [facility] [id number] [address] [place] [phone] Oct, [place] [address] [facility] [id number] [address] [place] [phone] Oct, [place] [address] [address] [facility] [id number] [address] [place] [address] Oct, Type 2 diabetes mellitus wit h diabetic neuropathy, unspecified whether oysterman insulin use E11.40 ; Diabetes E11.9 ; Slow transit constipation K59.01 ; Edema of both legs R60.0 and Dysfunction of right eustachian tube H69.81 [place] [address] [facility] [id number] [address] [place] [phone] Oct, Frequent headaches R51 [facility] [address] [id number] [address] [place] [phone] Oct, [facility] [address] [id number] [address] [place] [address] Oct, [facility] [address] [id number] [address] [place] [id number] Oct, [facility] [address] [id number] [address] [place] [address] Oct, [facility] [address] [id number] [address] [place] [phone] Oct, [facility] [address] [id number] [address] [place] [phone] Oct, [facility] [address] [id number] [address] [place] [address] Oct, [facility] [address] [id number] [address] [place] [address] Oct, [facility] [address] [id number] [address] [place] [phone] September, Frequent headaches R51 [facility] [address] [facility] [id number] [address] [place] [address] September, Bilateral otitis media with effusion H65.93 ; Dizziness R42 and Essential tremor G25.0 [facility] [address] [id number] [address] [place] [address] September, Chronic obstructive pulmonar y disease, unspecified COPD type J44.9 [facility] [address] [facility] [id number] [address] [place] [address] September, Chronic obstructive pulmonar y disease, unspecified COPD type J44.9 [facility] [address] [facility] [id number] [address] [place] [address] September, Migraine without aura and wi thout status migrainosus, not intractable G43.009 [facility] [address] [facility] [id number] [address] [place] [address] September, [facility] [address] [facility] [id number] [address] [place] [address] September, [facility] [address] [facility] [id number] [address] [place] [address] September, [facility] [address] [facility] [id number] [address] [place] [address] September, Frequent headaches R51 [facility] [address] [facility] [id number] [address] [place] [address] Aug, [facility] [address] [place] [id number] [address] [place] [address] Aug, Breast mass, right N63.10 [facility] [address] [place] [id number] [address] [place] [address] Aug, Breast lump N63.0 [facility] [address] [facility] [id number] [address] [place] [address] Aug, [facility] [address] [place] [id number] [address] [place] [phone] Aug, Bipolar affective disorder, remission status unspecified F31.9 and Diabetes E11.9 [facility] [address] [place] [id number] [address] [place] [address] Aug, Diabetes E11.9 ; Schizoaffec tive disorder, bipolar type F25.0 ; Pharyngitis due to other organism J02.8 ; Panlobular emphysema J43.1 and Irritable bowel syndrome with both constipation and diarrhea K58.2 [facility] [address] [facility] [id number] [address] [place] [address] Aug, Abnormal mammogram R92.8 [facility] [address] [place] [id number] [address] [place] [phone] Aug, [facility] [address] [place] [id number] [address] [place] [address] 12 Aug, 2017 Bipolar 1 disorder, depresse d, moderate F31.32 ; Panic disorder with agoraphobia F40.01 and Chronic post-traumatic stress disorder (PTSD) F43.12 [facility] [address] [facility] [id number] [address] [place] [phone] Aug, [facility] [address] [place] [id number] [place] [address] Aug, [facility] [address] [facility] [id number] [address] [place] [address] Aug, [facility] [address] [place] [id number] [place] [address] Jul, [place] [address] [place] [id number] [place] [address] Jul, Mild persistent asthma witho ut complication J45.30 [facility] [address] [place] [id number] [address] [place] [address] 19 Jul, 2017 Mild persistent asthma witho ut complication J45.30 [facility] [address] [place] [id number] [place] [address] 15 Jul, 2017 Bipolar affective disorder, remission status unspecified F31.9 ; Diabetes E11.9 and Irritable bowel syndrome with constipation K58.1 [place] [address] [place] [address] Jul, [facility] [address] [place] [id number] [address] [place] [address] Jul, [place] [address] [place] [id number] [place] [address] 08 Jul, 2017 Frequent headaches R51 [facility] [address] [facility] [id number] [address] [place] [address] 07 Jul, 2017 [place] [address] [place] [id number] [address] [place] [id number] Jul, [facility] [address] [place] [id number] [address] [place] [id number] Jul, [facility] [address] [address] Jul, Frequent headaches R51 ; Fib rocystic disease of left breast N60.12 ; Fibrocystic disease of right breast N60.11 and Diabetes E11.9 [place] [address] [address] Jul, [facility] [address] [address] Jul, [place] [address] [address] 21 Jun, 2017 Exudative tonsillitis J03.90 [place] [address] [address] 20 Jun, 2017 [facility] [address] [address] 19 Jun, 2017 [place] [address] [address] 15 Jun, 2017 Mild persistent asthma witho ut complication J45.30 ; Chronic obstructive pulmonary disease, unspecified COPD type J44.9 and Exudative tonsillitis J03.90 [place] [address] [place] [id number] [address] [place] [address] 13 Jun, 2017 Encounter for immunization Z 23 [place] [address] [place] [address] Jun, [place] [address] [address] Jun, [place] [address] [place] [id number] [address] [place] [address] 09 Jun, 2017 [facility] [address] [place] [id number] [address] [place] [address] 06 Jun, 2017 Tonsillitis J03.90 [facility] [address] [address] 05 Jun, 2017 [facility] [address] [address] 03 Jun, 2017 Acute non-recurrent maxillar y sinusitis J01.00 [place] [address] [address] 02 Jun, 2017 [facility] [address] [address] May, [place] [address] [address] May, [place] [address] [address] May, GERD (gastroesophageal reflu x disease) K21.9 [place] [address] [address] May, Migraine without aura and wi thout status migrainosus, not intractable G43.009 [place] [address] [address] May, [place] [address] [address] May, [place] [address] [address] May, Panlobular emphysema J43.1 a nd Acute non-recurrent maxillary sinusitis J01.00 [place] [address] [address] 04 May, 2017 Bipolar 1 disorder, depresse d, moderate F31.32 ; Panic disorder with agoraphobia F40.01 and Akathisia G25.71 [place] [address] [address] Apr, [facility] [address] [id number] [address] [place] [id number] Apr, [facility] [address] [id number] [address] [place] [address] Apr, Acute non-recurrent maxillar y sinusitis J01.00 [facility] [address] [id number] [address] [place] [address] 07 Apr, 2017 Panlobular emphysema J43.1 [facility] [address] [id number] [address] [place] [id number] 04 Apr, 2017 [facility] [address] [facility] [id number] [address] [place] [address] 04 Apr, 2017 Exudative tonsillitis J03.90 and Sore throat J02.9 [facility] [address] [facility] [id number] [address] [place] [address] 17 Mar, 2017 [facility] [address] [facility] [id number] [address] [place] [address] 15 Mar, 2017 Acute non-recurrent maxillar y sinusitis J01.00 [facility] [address] [facility] [id number] [address] [place] [id number] 13 Mar, 2017 [facility] [address] [facility] [id number] [address] [place] [address] 09 Mar, 2017 Panlobular emphysema J43.1 a nd Diabetes E11.9 [facility] [address] [facility] [id number] [address] [place] [id number] 06 Mar, 2017 [facility] [address] [facility] [id number] [address] [place] [address] Feb, Wheezing R06.2 and Acute rec urrent pansinusitis J01.41 [facility] [address] [facility] [id number] [address] [place] [id number] Feb, [facility] [address] [facility] [id number] [address] [place] [address] Feb, Acute non-recurrent maxillar y sinusitis J01.00 [facility] [address] [id number] [address] [place] [address] 16 Feb, 2017 Chronic obstructive pulmonar y disease, unspecified J44.9 [facility] [address] [facility] [id number] [address] [place] [address] 02 Feb, 2017 Hypoxemia R09.02 and Chronic obstructive pulmonary disease, unspecified J44.9 [facility] [address] [id number] [address] [place] [address] 28 Jan, 2017 Bipolar 1 disorder, depresse d, moderate F31.32 ; Panic disorder with agoraphobia F40.01 ; Chronic post-traumatic stress disorder (PTSD) F43.12 ; Diabetes E11.9 and Moderate persistent asthma without complication J45.40 [place] [address] [facility] [id number] [address] [place] [address] 22 Jan, 2017 [facility] [address] [id number] [address] [place] [address] 19 Jan, 2017 Acute non-recurrent maxillar y sinusitis J01.00 [facility] [address] [id number] [address] [place] [address] 18 Jan, 2017 [place] [address] [facility] [id number] [address] [place] [address] 18 Jan, 2017 [facility] [address] [facility] [id number] [address] [place] [address] Jan, Moderate persistent asthma w [facility] complication J45.40 and Hypoxemia R09.02 [facility] [address] [id number] [address] [place] [address] 11 Jan, 2017 Moderate persistent asthma w [facility] complication J45.40 and Hypoxemia R09.02 [place] [address] [id number] [address] [place] [address] Jan, [place] [address] [facility] [id number] [address] [place] [address] Dec, Acute non-recurrent maxillar y sinusitis J01.00 [facility] [address] [id number] [address] [place] [address] Dec, Chronic obstructive pulmonar y disease, unspecified J44.9 [facility] [address] [id number] [address] [place] [address] Dec, [facility] [address] [id number] [address] [place] [address] Dec, Mild persistent asthma witho ut complication J45.30 and Other chronic pain G89.29 [facility] [address] [id number] [address] [place] [address] Nov, [facility] [address] [id number] [address] [place] [address] Nov, Acute non-recurrent maxillar y sinusitis J01.00 [facility] [address] [id number] [address] [place] [address] Nov, [facility] [address] [id number] [address] [place] [address] Nov, [facility] [address] [facility] [id number] [address] [place] [id number] Oct, [facility] [address] [id number] [address] [place] [address] Oct, Bipolar 1 disorder, depresse d, partial remission F31.75 ; Panic disorder with agoraphobia F40.01 and Chronic post-traumatic stress disorder (PTSD) F43.12 [facility] [address] [id number] [address] [place] [address] Oct, Acute non-recurrent maxillar y sinusitis J01.00 [facility] [address] [id number] [address] [place] [id number] Oct, [facility] [address] [facility] [id number] [address] [place] [id number] Oct, Diabetes E11.9 [facility] [address] [facility] [id number] [address] [place] [address] September, Diabetes E11.9 [facility] [address] [facility] [id number] [address] [place] [address] September, Diabetes E11.9 and Sinus tac hycardia R00.0 [facility] [address] [facility] [id number] [address] [place] [address] September, [facility] [address] [facility] [id number] [address] [place] [address] September, [facility] [address] [facility] [id number] [address] [place] [address] Aug, Diabetes E11.9 and Lumbago w ith sciatica, right side M54.41 [facility] [address] [facility] [id number] [address] [place] [address] Aug, [facility] [address] [facility] [id number] [address] [place] [address] Jul, Bipolar 1 disorder, depresse d, moderate F31.32 ; Panic disorder with agoraphobia F40.01 and Chronic post-traumatic stress disorder (PTSD) F43.12 [facility] [address] [facility] [id number] [address] [place] [address] Jul, Sore throat J02.9 [facility] [address] [facility] [id number] [address] [place] [address] Jul, [facility] [address] [facility] [id number] [address] [place] [address] Jul, [facility] [address] [facility] [id number] [address] [place] [id number] Jul, [facility] [address] [facility] [id number] [address] [place] [id number] Jul, [facility] [address] [facility] [id number] [address] [place] [id number] Jul, Sore throat J02.9 and Pharyn gitis, unspecified etiology J02.9 [facility] [address] [facility] [id number] [address] [place] [address] Jun, [facility] [address] [facility] [id number] [address] [place] [address] Jun, Diabetes E11.9 [facility] [address] [facility] [id number] [address] [place] [address] Jun, [facility] [address] [facility] [id number] [address] [place] [id number] Jun, [facility] [address] [facility] [id number] [address] [place] [address] Jun, [facility] [address] [place] [id number] [address] [place] [id number] Jun, [facility] [address] [facility] [id number] [address] [place] [address] Jun, [facility] [address] [facility] [id number] [address] [place] [address] Jun, [facility] [address] [facility] [id number] [address] [place] [address] Jun, [facility] [address] [facility] [id number] [address] [place] [address] Jun, [facility] [address] [place] [id number] [address] [place] [address] May, Diabetes E11.9 ; Other chron ic pain G89.29 ; Acute recurrent maxillary sinusitis J01.01 ; Bipolar I disorder with depression F31.9 and Anxiety disorder, unspecified F41.9 [facility] [address] [facility] [id number] [address] [place] [id number] May, [facility] [id number] [place] [id number] May, Diabetes E11.9 ; Bipolar I d isorder with depression F31.9 ; Anxiety disorder, unspecified F41.9 ; Other chronic pain G89.29 and Acute recurrent maxillary sinusitis J01.01 [place] [address] [facility] [id number] [address] [place] [id number] May, [place] [address] [address] [facility] [id number] [address] [place] [id number] May, Attention deficit hyperactiv ity disorder (ADHD), predominantly inattentive type F90.0 [place] [address] [facility] [id number] [address] [place] [id number] May, [place] [address] [place] [id number] [place] [id number] Apr, Attention deficit hyperactiv ity disorder (ADHD), predominantly inattentive type F90.0 and Non-seasonal allergic rhinitis due to other allergic trigger J30.89 [place] [address] [place] [id number] [place] [id number] Apr, Bipolar 1 disorder, depresse d, moderate F31.32 ; Panic disorder with agoraphobia F40.01 and Chronic post-traumatic stress disorder (PTSD) F43.12 [place] [address] [place] [id number] [place] [phone] Apr, Dental examination Z01.20 [place] [address] [place] [id number] [place] [phone] Mar, [place] [address] [facility] [id number] [address] [place] [phone] Mar, [place] [address] [place] [id number] [place] [id number] Mar, Bipolar I disorder with depr ession F31.9 and Anxiety disorder, unspecified F41.9 [place] [address] [place] [id number] [place] [id number] Mar, Panic disorder with agorapho syd F40.01 ; Bipolar 1 disorder, depressed, moderate F31.32 and Chronic post-traumatic stress disorder (PTSD) F43.12 [place] [address] [place] [id number] [address] [place] [phone] Mar, [facility] [address] [place] [id number] [address] [place] [phone] Mar, Dental caries K02.9 [facility] [address] [place] [id number] [place] [address] Feb, Lumbago with sciatica, left side M54.42 ; Lumbago with sciatica, right side M54.41 and Other chronic pain G89.29 [place] [address] [place] [id number] [place] [id number] 17 Feb, 2016 [place] [address] [place] [id number] [place] [phone] Feb, [place] [address] [address] Feb, Bipolar I disorder with depr ession F31.9 ; PTSD (post-traumatic stress disorder) F43.10 and Mood disorder F39 [place] [address] [place] [address] Feb, [place] [address] [place] [id number] [address] [place] [phone] Feb, Dental examination Z01.20 [place] [address] [place] [id number] [address] [place] [phone] Feb, [facility] [address] [place] [id number] [address] [place] [address] Feb, Acute bronchitis, unspecifie d organism J20.9 [facility] [address] [facility] [id number] [address] [place] [phone] Jan, Mood disorder F39 ; Migraine without aura and without status migrainosus, not intractable G43.009 ; Irritable bowel syndrome, unspecified type K58.9 ; Diabetes E11.9 and Encounter for immunization Z23 [facility] [address] [facility] [id number] [address] [place] [id number] Jan, [facility] [address] [facility] [id number] [address] [place] [id number] Jan, [facility] [address] [place] [id number] [address] [place] [phone] Jan, [facility] [address] [place] [id number] [address] [place] [phone] Jan, [facility] [address] [facility] [id number] [address] [place] [phone] Jan, [facility] [address] [place] [id number] [address] [place] [address] Dec, Bipolar I disorder with depr ession F31.9 ; PTSD (post-traumatic stress disorder) F43.10 and Panic disorder with agoraphobia F40.01 [facility] [address] [place] [address] Dec, Chronic obstructive pulmonar y disease, unspecified COPD type J44.9 ; Tremor R25.1 and Anxiety F41.9 [facility] [address] [place] [id number] [address] [place] [phone] Dec, [facility] [address] [place] [id number] [address] [place] [phone] Nov, Tremors of nervous system R2 5.1 and Cramping of feet R25.2 [facility] [address] [facility] [id number] [address] [place] [id number] Nov, [facility] [address] [place] [id number] [address] [place] [id number] Nov, [facility] [address] [place] [id number] [address] [place] [address] Oct, Chronic obstructive pulmonar y disease, unspecified J44.9 [facility] [address] [place] [id number] [address] [place] [id number] Oct, [facility] [address] [facility] [id number] [address] [place] [id number] Oct, Tremor R25.1 [facility] [address] [facility] [id number] [address] [place] [phone] Oct, Bipolar I disorder with depr ession F31.9 ; Diabetes E11.9 ; PTSD (post-traumatic stress disorder) F43.10 and Panic disorder with agoraphobia F40.01 [facility] [address] [facility] [id number] [address] [place] [address] Oct, Mood disorder F39 [place] [address] [facility] [id number] [address] [place] [id number] September, [place] [address] [place] [id number] [address] [place] [address] September, Diabetes E11.9 ; Bipolar I d isorder with depression F31.9 ; PTSD (post-traumatic stress disorder) F43.10 and Panic disorder with agoraphobia F40.01 [place] [address] [facility] [id number] [address] [place] [address] September, Mood disorder F39 ; Schizoaf fective disorder, unspecified type F25.9 ; Arthritis M19.90 ; Tremor R25.1 ; Acute non-recurrent frontal sinusitis J01.10 and Blood in stool K92.1 [facility] [address] [facility] [id number] [address] [place] [phone] September, [place] [address] [facility] [id number] [address] [place] [address] September, Chronic obstructive pulmonar y disease, unspecified J44.9 [facility] [address] [facility] [id number] [address] [place] [address] September, Diabetes E11.9 [place] [address] [place] [id number] [address] [place] [phone] Aug, Other bipolar disorder F31.8 9 and Anxiety disorder, unspecified F41.9 [facility] [address] [id number] [address] [place] [address] Aug, [facility] [address] [id number] [address] [place] [address] Aug, Diabetes E11.9 [facility] [address] [id number] [address] [place] [id number] 18 Aug, 2015 [facility] [address] [id number] [address] [place] [address] 14 Aug, 2015 Diabetes E11.9 ; Fatigue R53 .83 and Dizziness R42 [facility] [address] [id number] [address] [place] [phone] 13 Aug, 2015 Other bipolar disorder F31.8 9 [facility] [address] [id number] [address] [place] [phone] 07 Aug, 2015 Generalized anxiety disorder F41.1 [facility] [address] [id number] [address] [place] [id number] 07 Aug, 2015 Other bipolar disorder F31.8 9 and Anxiety disorder, unspecified F41.9 [facility] [address] [id number] [address] [place] [phone] Aug, [facility] [address] [id number] [address] [place] [address] Jul, [facility] [address] [id number] [address] [place] [phone] Jul, [facility] [address] [id number] [address] [place] [address] Jul, Bronchitis J40 [facility] [address] [id number] [address] [place] [id number] Jul, Anxiety disorder F41.9 [facility] [address] [id number] [address] [place] [address] Jul, Other bipolar disorder F31.8 9 and Anxiety disorder, unspecified F41.9 [facility] [address] [id number] [address] [place] [address] Jul, Other bipolar disorder F31.8 9 and Fibromyalgia M79.7 [facility] [address] [id number] [address] [place] [address] Jul, [facility] [address] [facility] [id number] [address] [place] [id number] Jul, [facility] [address] [id number] [address] [place] [phone] Jul, [facility] [address] [facility] [id number] [address] [place] [phone] Jul, Other bipolar disorder F31.8 9 and Anxiety disorder, unspecified F41.9 [facility] [address] [facility] [id number] [address] [place] [phone] Jun, GERD (gastroesophageal reflu x disease) K21.9 [facility] [address] [facility] [id number] [address] [place] [address] Jun, [facility] [address] [facility] [id number] [address] [place] [phone] May, [facility] [address] [facility] [id number] [address] [place] [phone] May, Diabetes E11.9 ; Back pain M 54.9 ; GERD (gastroesophageal reflux disease) K21.9 ; Hypertension I10 and Peripheral neuropathy G62.9 [facility] [address] [facility] [id number] [address] [place] [address] Mar, [facility] [address] [facility] [id number] [address] [place] [phone] Mar, [facility] [address] [facility] [id number] [address] [place] [address] Mar, Acute sinusitis J01.90 and O titis media, left H66.92 [facility] [address] [id number] [address] [place] [phone] Feb, [facility] [address] [facility] [id number] [address] [place] [address] Feb, [facility] [address] [facility] [id number] [address] [place] [phone] Feb, [facility] [address] [facility] [id number] [address] [place] [id number] Feb, [facility] [address] [facility] [id number] [address] [place] [id number] Jan, [facility] [address] [facility] [id number] [address] [place] [id number] Jan, Diabetes 250.00 and Back higinio n 724.5 [facility] [address] [facility] [id number] [address] [place] [address] Jan, [facility] [address] [facility] [id number] [address] [place] [address] Dec, Diabetes 250.00 ; Benign ess ential hypertension 401.1 and Allergic rhinitis 477.9 [facility] [address] [facility] [id number] [address] [place] [address] Dec, [facility] [address] [facility] [id number] [address] [place] [id number] Dec, [facility] [address] [facility] [id number] [address] [place] [phone] Dec, Psychosis 298.9 [facility] [address] [facility] [id number] [address] [place] [address] Dec, Medication side effect 995.2 0 and Generalized anxiety disorder 300.02 [facility] [address] [facility] [id number] [address] [place] [id number] Dec, Acquired cognitive dysfuncti on 294.9 [facility] [address] [facility] [id number] [address] [place] [id number] Dec, [facility] [address] [facility] [id number] [address] [place] [address] Dec, Unspecified myalgia and myos itis 729.1 and Generalized anxiety disorder 300.02 [facility] [address] [id number] [address] [place] [phone] Nov, [facility] [address] [facility] [id number] [address] [place] [phone] Nov, [facility] [address] [id number] [address] [place] [address] Nov, [facility] [address] [facility] [id number] [address] [place] [phone] Nov, Upper respiratory infection 465.9 and Chronic airway obstruction, not elsewhere classified 496 [facility] [address] [facility] [id number] [address] [place] [address] Nov, Hyponatremia 276.1 [facility] [address] [facility] [id number] [address] [place] [phone] Oct, [facility] [address] [facility] [id number] [address] [place] [phone] Oct, [facility] [address] [facility] [id number] [address] [place] [id number] Oct, [facility] [address] [facility] [id number] [address] [place] [phone] Oct, [facility] [address] [facility] [id number] [address] [place] [id number] Oct, Hyponatremia 276.1 [facility] [address] [facility] [id number] [address] [place] [phone] Oct, [facility] [address] [facility] [id number] [address] [place] [phone] Oct, [facility] [address] [facility] [id number] [address] [place] [address] Oct, Generalized anxiety disorder 300.02 [facility] [address] [id number] [address] [place] [address] Oct, Generalized anxiety disorder 300.02 and Diabetes 250.00 [facility] [address] [id number] [address] [place] [id number] 14 Aug, 2014 [facility] [address] [id number] [address] [place] [address] Aug, [facility] [address] [id number] [address] [place] [phone] Jul, [facility] [address] [id number] [address] [place] [phone] Jul, [facility] [address] [id number] [address] [place] [phone] Jun, [facility] [address] [id number] [address] [place] [id number] Jun, [facility] [address] [id number] [address] [place] [phone] Jun, [facility] [address] [id number] [address] [place] [address], [place] [address] Jun, [facility] [address] [id number] [address] [place] [phone] Jun, [facility] [address] [id number] [address] [place] [address] May, [facility] [address] [id number] [address] [place] [phone] May, [facility] [address] [id number] [address] [place] [phone] Apr, [facility] [address] [id number] [address] [place] [id number] Apr, [facility] [address] [id number] [address] [place] [phone] Apr, [facility] [address] [id number] [address] [place] [address], [place] [address] Apr, [facility] [address] [id number] [address] [place] [address], [place] [address] Apr, [facility] [address] [id number] [address] [place] [address], [place] [id number] Apr, [facility] [address] [id number] [address] [place] [address], [place] [address] Apr, [facility] [address] [id number] [address] [place] [address], [place] [address] Apr, [facility] [address] [id number] [address] [place] [address], [place] [address] Feb, [facility] [address] [id number] [address] [place] [address], [place] [address] Feb, [facility] [address] [id number] [address] [place] [address], [place] [address] Jan, [facility] [address] [id number] [address] [place] [address], [place] [address] Jan, [facility] [address] [id number] [address] [place] [address], [place] [address] Dec, [facility] [address] [id number] [address] [place] [address], [place] [address] Dec, [facility] [address] [id number] [address] [place] [address], [place] [address] Dec, [facility] [address] [id number] [address] [place] [address], [place] [address] Nov, [facility] [address] [id number] [address] [place] [address], [place] [address] Nov, [facility] [address] [id number] [address] [place] [address], [place] [address] Nov, [facility] [address] [id number] [address] [place] [address] [place] [address] Oct, [facility] [address] [id number] [address] [place] [address], [place] [address] Oct, [facility] [address] [id number] [address] [place] [address], [place] [address] Oct, [facility] [address] [id number] [address] [place] [address], [place] [address] September, [facility] [address] [id number] [address] [place] [address], [place] [address] September, [facility] [address] [id number] [address] [place] [address], [place] [address] September, [facility] [address] [id number] [address] [place] [address], [place] [address] Aug, [facility] [address] [id number] [address] [place] [address], [place] [address] Aug, [facility] [address] [id number] [address] [place] [address], [place] [address] Aug, [facility] [address] [id number] [address] [place] [address], [place] [address] 16 Aug, 2011 [facility] [address] [id number] [address] [place] [address], [place] [address] Jul, [facility] [address] [id number] [address] [place] [address], [place] [address] Jun, [facility] [address] [id number] [address] [place] [address], [place] [address] 14 Jun, 2011 [facility] [address] [id number] [address] [place] [address], [place] [address] 13 Jun, 2011 [facility] [address] [id number] [address] [place] [address], [place] [address] 07 Jun, 2011 [facility] [address] [id number] [address] [place] [address], [place] [address] 03 Jun, 2011 [facility] [address] [id number] [address] [place] [address], [place] [address] May, [facility] [address] [id number] [address] [place] [address], [place] [address] May, [facility] [address] [id number] [address] [place] [address], [place] [address] May, [facility] [address] [id number] [address] [place] [address], [place] [address] May, [facility] [address] [id number] [address] [place] [address], [place] [address] Apr, [facility] [address] [id number] [address] [place] [address], [place] [address] Apr, [facility] [address] [id number] [address] [place] [address], [place] [address] Apr, [facility] [address] [id number] [address] [place] [address], [place] [address] Mar, [facility] [address] [id number] [address] [place] [address], [place] [address] Mar, [facility] [address] [id number] [address] [place] [address], [place] [address] Mar, [facility] [address] [id number] [address] [place] [id number] Feb, [facility] [address] [id number] [address] [place] [id number] Feb, [facility] [address] [id number] [address] [place] [address], [place] [id number] Feb, [facility] [address] [id number] [address] [place] [address], [place] [id number] Nov, [facility] [address] [id number] [address] [place] [address], [place] [id number] September, [facility] [address] [id number] [address] [place] [id number] Aug, [facility] [address] [id number] [address] [place] [id number] Jul, [facility] [address] [id number] [address] [place] [id number] May, [facility] [address] [id number] [address] [place] [id number] Apr, [facility] [address] [facility] [id number] [address] [place] [id number] Apr, [facility] [address] [facility] [id number] [address] [place] [id number] Apr, [facility] [address] [facility] [id number] [address] [place] [id number] Apr, [facility] [address] [facility] [id number] [address] [place] [phone] Apr, IMMUNIZATIONS No Known Immunizations SOCIAL HISTORY Never Assessed REASON FOR VISIT adderall 07/20/2017 PLAN OF CARE VITAL SIGNS MEDICATIONS Medication Instructions Dosage Frequency Start Date End Date Duration S samantha Adderall XR 20 mg Orally Once a day for depression 1 capsule in the morning Jul, 28 days Active RESULTS No Results [...]
--- OUTSIDE RECORDS SUMMARY | 2019-07-17 11:15 | XMS REPORT ---
Author Author Sujey GANDHI Organization [facility] [place] Address [address] [place] [address] Care Team Providers Care Senior Statistician Name Role Phone WHIT GANDHI Unavailable PROBLEMS Type Condition ICD9-CM Code VIO45-RZ Code Onset Dates Condition S tatus SNOMED Code Problem Back pain M54.9 Active 378273965 Problem Diabetes E11.9 Active 19065946 Problem GERD (gastroesophageal reflux disease) K21.9 Active 803842609 Problem Hypertension I10 Active 8743864 3 Problem Anxiety disorder, unspecified F41.9 Active 059619190 Problem Other bipolar disorder F31.89 Active 32491618 Problem Fibromyalgia M79.7 Active 7808761 7 Problem Panic disorder with agoraphobia F40.01 Active 26755305 Problem Panlobular emphysema J43.1 Active 7153969 Problem Chronic obstructive pulmonary disease, unspecified J44.9 Active 21400442 Problem Akathisia G25.71 Active 355502624 Problem Lumbago with sciatica, left side M54.42 Active 629260341 Problem Migraine without aura and without status migrain osus, not intractable G43.009 Active 006879736 Problem Fibrocystic disease of right breast N60.11 Active 27560534 Problem Fibrocystic disease of left breast N60.12 Active 53206888 Problem Slow transit constipation K59.01 Acti ve 64462539 Problem Essential tremor G25.0 Active 609 877061 Problem Bipolar 1 disorder, depressed, moderate F31.32 Active 45381545 Problem Other chronic pain G89.29 Active 8 9551940 Problem Lumbago with sciatica, right side M54.41 Active 353046360 Problem Irritable bowel syndrome with constipation K58.1 Active 688070464 Problem Arthritis M19.90 Active 1957318 Problem Schizoaffective disorder, bipolar type F25.0 Active 13959849 Problem Irritable bowel syndrome with both constipation and diarrh ea K58.2 Active 22418774 Problem Attention deficit hyperactiv ity disorder (ADHD), predominantly inattentive type F90.0 Active 12335349 Problem Bipolar I disorder with depression F31.9 Active 61623817 Problem Chronic post-traumatic stress disorder (PTSD) F43. 12 Active 867685040 Problem Bipolar affective disorder, remission status unspecified F31.9 Active 30815145 Problem Mild persistent asthma without complication J45.30 Active 407280957 Problem Moderate persistent asthma without complication J4 5.40 Active 888577551 Problem Acute non-recurrent maxillary sinusitis J01.00 Active 03956528 Problem Bipolar 1 disorder, depressed, partial remission F 31.75 Active 29941759 ALLERGIES No Information ENCOUNTERS Encounter Location Date Diagnosis [place] [id number] [facility] [id number] [address] [place] [phone] Nov, [place] [address] [address] [place] [id number] [address] [place] [phone] Nov, [place] [address] [address] [facility] [id number] [address] [place] [phone] Nov, [place] [address] [address] [facility] [id number] [address] [place] [phone] Nov, Mild persistent asthma witho ut complication J45.30 and Irritable bowel syndrome with both constipation and diarrhea K58.2 [place] [address] [address] [facility] [id number] [address] [place] [phone] Nov, [place] [address] [facility] [id number] [address] [place] [phone] Oct, [place] [address] [facility] [id number] [address] [place] [phone] Oct, [place] [address] [facility] [id number] [address] [place] [phone] Oct, Type 2 diabetes mellitus wit h diabetic neuropathy, 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 ; Diabetes E11.9 ; Slow transit constipation K59.01 ; Edema of both legs R60.0 and Dysfunction of right eustachian tube H69.81 [place] [address] [address] [facility] [id number] [address] [place] [phone] Oct, Frequent headaches R51 [facility] [place] [address] [id number] [address] [place] [phone] Oct, [facility] [place] [address] [id number] [address] [place] [phone] Oct, [facility] [place] [address] [id number] [address] [place] [id number] Oct, [facility] [place] [address] [id number] [address] [place] [id number] Oct, [facility] [place] [address] [id number] [address] [place] [phone] Oct, [facility] [place] [address] [id number] [address] [place] [phone] Oct, [facility] [place] [address] [id number] [address] [place] [phone] Oct, [facility] [place] [address] [id number] [address] [place] [phone] Oct, [facility] [place] [address] [facility] [id number] [address] [place] [phone] September, Frequent headaches R51 [facility] [place] [address] [facility] [id number] [address] [place] [phone] September, Bilateral otitis media with effusion H65.93 ; Dizziness R42 and Essential tremor G25.0 [facility] [place] [address] [id number] [address] [place] [phone] September, Chronic obstructive pulmonar y disease, unspecified COPD type J44.9 [facility] [place] [address] [facility] [id number] [address] [place] [phone] September, Chronic obstructive pulmonar y disease, unspecified COPD type J44.9 [facility] [place] [address] [facility] [id number] [address] [place] [phone] September, Migraine without aura and wi thout status migrainosus, not intractable G43.009 [facility] [place] [address] [facility] [id number] [address] [place] [phone] September, [facility] [place] [address] [facility] [id number] [address] [place] [phone] September, [facility] [place] [address] [facility] [id number] [address] [place] [phone] September, [facility] [place] [address] [facility] [id number] [address] [place] [phone] September, Frequent headaches R51 [facility] [place] [address] [facility] [id number] [address] [place] [phone] Aug, [facility] [place] [address] [place] [id number] [address] [place] [id number] Aug, Breast mass, right N63.10 [facility] [place] [address] [place] [id number] [address] [place] [id number] Aug, Breast lump N63.0 [facility] [place] [address] [facility] [id number] [address] [place] [phone] Aug, [facility] [place] [address] [id number] Aug, Bipolar affective disorder, remission status unspecified F31.9 and Diabetes E11.9 [place] [address] [address] [place] [id number] [address] [place] [phone] Aug, Diabetes E11.9 ; Schizoaffec tive disorder, bipolar type F25.0 ; Pharyngitis due to other organism J02.8 ; Panlobular emphysema J43.1 and Irritable bowel syndrome with both constipation and diarrhea K58.2 [facility] [place] [address] [place] [id number] [address] [place] [phone] Aug, Abnormal mammogram R92.8 [facility] [place] [address] [place] [id number] [address] [place] [phone] Aug, [facility] [place] [address] [place] [id number] [place] [address] Aug, Bipolar 1 disorder, depresse d, moderate F31.32 ; Panic disorder with agoraphobia F40.01 and Chronic post-traumatic stress disorder (PTSD) F43.12 [facility] [place] [address] [facility] [id number] [address] [place] [phone] Aug, [facility] [place] [address] [place] [id number] [address] [place] [phone] Aug, [facility] [place] [address] [facility] [id number] [address] [place] [phone] Aug, [facility] [place] [address] [place] [id number] [place] [phone] Jul, [facility] [place] [address] [place] [id number] [place] [phone] Jul, Mild persistent asthma witho ut complication J45.30 [facility] [place] [address] [place] [id number] [address] [place] [id number] Jul, Mild persistent asthma witho ut complication J45.30 [facility] [place] [address] [address] 15 Jul, 2017 Bipolar affective disorder, remission status unspecified F31.9 ; Diabetes E11.9 and Irritable bowel syndrome with constipation K58.1 [facility] [place] [id number] [place] [phone] Jul, [facility] [place] [address] [place] [id number] [address] [place] [id number] Jul, [facility] [place] [address] [address] 08 Jul, 2017 Frequent headaches R51 [facility] [place] [address] [place] [id number] [address] [place] [id number] 07 Jul, 2017 [facility] [place] [address] [place] [id number] [address] [place] [address] Jul, [facility] [place] [address] [place] [address] Jul, [place] [address] [address] Jul, Frequent headaches R51 ; Fib rocystic disease of left breast N60.12 ; Fibrocystic disease of right breast N60.11 and Diabetes E11.9 [place] [address] [address] Jul, [place] [address] [id number] Jul, [place] [address] [address] Jun, Exudative tonsillitis J03.90 [place] [address] [phone] 20 Jun, 2017 [place] [address] [address] 19 Jun, 2017 [place] [address] [address] 15 Jun, 2017 Mild persistent asthma witho ut complication J45.30 ; Chronic obstructive pulmonary disease, unspecified COPD type J44.9 and Exudative tonsillitis J03.90 [place] [address] [address] 13 Jun, 2017 Encounter for immunization Z 23 [place] [address] [address] [place] [id number] [address] [place] [phone] Jun, [place] [address] [address] Jun, [place] [address] [address] 09 Jun, 2017 [facility] [address] [place] [id number] [address] [place] [id number] 06 Jun, 2017 Tonsillitis J03.90 [facility] [place] [address] [address] 05 Jun, 2017 [facility] [place] [address] [address] 03 Jun, 2017 Acute non-recurrent maxillar y sinusitis J01.00 [facility] [place] [address] [address] 02 Jun, 2017 [facility] [place] [address] [address] May, [place] [address] [address] May, [place] [address] [address] May, GERD (gastroesophageal reflu x disease) K21.9 [place] [address] [address] May, Migraine without aura and wi thout status migrainosus, not intractable G43.009 [place] [address] [address] May, [place] [address] [address] May, [place] [address] [address] May, Panlobular emphysema J43.1 a nd Acute non-recurrent maxillary sinusitis J01.00 [place] [address] [address] May, Bipolar 1 disorder, depresse d, moderate F31.32 ; Panic disorder with agoraphobia F40.01 and Akathisia G25.71 [place] [address] [address] Apr, [facility] [place] [address] [id number] [address] [place] [id number] 14 Apr, 2017 [facility] [place] [address] [facility] [id number] [address] [place] [id number] 13 Apr, 2017 Acute non-recurrent maxillar y sinusitis J01.00 [facility] [place] [address] [facility] [id number] [address] [place] [id number] 07 Apr, 2017 Panlobular emphysema J43.1 [facility] [place] [address] [id number] [address] [place] [id number] 04 Apr, 2017 [facility] [address] [facility] [id number] [address] [place] [phone] 04 Apr, 2017 Exudative tonsillitis J03.90 and Sore throat J02.9 [facility] [place] [address] [facility] [id number] [address] [place] [phone] 17 Mar, 2017 [facility] [place] [address] [facility] [id number] [address] [place] [id number] 15 Mar, 2017 Acute non-recurrent maxillar y sinusitis J01.00 [facility] [place] [address] [facility] [id number] [address] [place] [id number] 13 Mar, 2017 [facility] [place] [address] [facility] [id number] [address] [place] [phone] 09 Mar, 2017 Panlobular emphysema J43.1 a nd Diabetes E11.9 [facility] [place] [address] [facility] [id number] [address] [place] [phone] Mar, [facility] [address] [facility] [id number] [address] [place] [address] Feb, Wheezing R06.2 and Acute rec urrent pansinusitis J01.41 [facility] [place] [address] [facility] [id number] [address] [place] [phone] Feb, [facility] [place] [address] [facility] [id number] [address] [place] [phone] 16 Feb, 2017 Acute non-recurrent maxillar y sinusitis J01.00 [facility] [place] [address] [id number] [address] [place] [id number] 16 Feb, 2017 Chronic obstructive pulmonar y disease, unspecified J44.9 [facility] [place] [address] [id number] [address] [place] [id number] 02 Feb, 2017 Hypoxemia R09.02 and Chronic obstructive pulmonary disease, unspecified J44.9 [facility] [place] [address] [id number] [address] [place] [phone] 28 Jan, 2017 Bipolar 1 disorder, depresse d, moderate F31.32 ; Panic disorder with agoraphobia F40.01 ; Chronic post-traumatic stress disorder (PTSD) F43.12 ; Diabetes E11.9 and Moderate persistent asthma without complication J45.40 [facility] [place] [address] [id number] [address] [place] [id number] 22 Jan, 2017 [facility] [place] [address] [id number] [address] [place] [phone] 19 Jan, 2017 Acute non-recurrent maxillar y sinusitis J01.00 [facility] [place] [address] [id number] [address] [place] [id number] 18 Jan, 2017 [facility] [place] [address] [id number] [address] [place] [id number] 18 Jan, 2017 [facility] [place] [address] [id number] [address] [place] [address] Jan, Moderate persistent asthma w [facility] complication J45.40 and Hypoxemia R09.02 [facility] [place] [address] [id number] [address] [place] [id number] 11 Jan, 2017 Moderate persistent asthma w [facility] complication J45.40 and Hypoxemia R09.02 [facility] [place] [address] [id number] [address] [place] [id number] 11 Jan, 2017 [facility] [place] [address] [facility] [id number] [address] [place] [id number] Dec, Acute non-recurrent maxillar y sinusitis J01.00 [facility] [place] [address] [id number] [address] [place] [address] Dec, Chronic obstructive pulmonar y disease, unspecified J44.9 [facility] [place] [address] [id number] [address] [place] [id number] Dec, [facility] [place] [address] [id number] [address] [place] [phone] Dec, Mild persistent asthma witho ut complication J45.30 and Other chronic pain G89.29 [facility] [place] [address] [id number] [address] [place] [phone] Nov, [facility] [place] [address] [id number] [address] [place] [id number] Nov, Acute non-recurrent maxillar y sinusitis J01.00 [facility] [place] [address] [id number] [address] [place] [phone] Nov, [facility] [place] [address] [id number] [address] [place] [phone] Nov, [facility] [place] [address] [id number] [address] [place] [id number] Oct, [facility] [place] [address] [id number] [address] [place] [id number] Oct, Bipolar 1 disorder, depresse d, partial remission F31.75 ; Panic disorder with agoraphobia F40.01 and Chronic post-traumatic stress disorder (PTSD) F43.12 [facility] [place] [address] [id number] [address] [place] [id number] Oct, Acute non-recurrent maxillar y sinusitis J01.00 [facility] [place] [address] [id number] [address] [place] [id number] Oct, [facility] [place] [address] [id number] [address] [place] [id number] Oct, Diabetes E11.9 [facility] [place] [address] [facility] [id number] [address] [place] [phone] September, Diabetes E11.9 [facility] [place] [address] [facility] [id number] [address] [place] [phone] September, Diabetes E11.9 and Sinus tac hycardia R00.0 [facility] [place] [address] [facility] [id number] [address] [place] [phone] September, [facility] [place] [address] [facility] [id number] [address] [place] [id number] September, [facility] [place] [address] [facility] [id number] [address] [place] [id number] Aug, Diabetes E11.9 and Lumbago w ith sciatica, right side M54.41 [facility] [place] [address] [facility] [id number] [address] [place] [phone] Aug, [facility] [place] [address] [place] [id number] [address] [place] [id number] Jul, Bipolar 1 disorder, depresse d, moderate F31.32 ; Panic disorder with agoraphobia F40.01 and Chronic post-traumatic stress disorder (PTSD) F43.12 [facility] [place], [facility] [address] [facility] [id number] [address] [place] [id number] Jul, Sore throat J02.9 [facility] [place], [facility] [address] [facility] [id number] [address] [place] [id number] Jul, [facility] [place], [facility] [address] [facility] [id number] [address] [place] [id number] Jul, [facility] [place], [facility] [address] [facility] [id number] [address] [place] [id number] Jul, [facility] [place], [facility] [address] [facility] [id number] [address] [place] [id number] Jul, [facility] [place], [facility] [address] [facility] [id number] [address] [place] [id number] Jul, Sore throat J02.9 and Pharyn gitis, unspecified etiology J02.9 [facility] [place], [facility] [address] [id number] [address] [place] [id number] Jun, [facility] [place], [facility] [address] [id number] [address] [place] [id number] Jun, Diabetes E11.9 [facility] [place], [facility] [address] [facility] [id number] [address] [place] [id number] Jun, [facility] [place], [facility] [address] [id number] [address] [place] [phone] Jun, [facility] [place] [address] [id number] [address] [place] [phone] Jun, [facility] [place] [address] [facility] [id number] [address] [place] [phone] Jun, [facility] [place] [address] [facility] [id number] [address] [place] [phone] Jun, [facility] [place] [address] [facility] [id number] [address] [place] [phone] Jun, [facility] [place] [address] [facility] [id number] [address] [place] [phone] Jun, [facility] [place] [address] [facility] [id number] [address] [place] [phone] Jun, [facility] [place] [address] [facility] [id number] [address] [place] [phone] May, Diabetes E11.9 ; Other chron ic pain G89.29 ; Acute recurrent maxillary sinusitis J01.01 ; Bipolar I disorder with depression F31.9 and Anxiety disorder, unspecified F41.9 [facility] [place] [address] [facility] [id number] [address] [place] [phone] May, [facility] [place] [address] [facility] [id number] [address] [place] [id number] 26 Eulalio, 2017 Diabetes E11.9 ; Bipolar I d isorder with depression F31.9 ; Anxiety disorder, unspecified F41.9 ; Other chronic pain G89.29 and Acute recurrent maxillary sinusitis J01.01 [place] [address] [address] [facility] [id number] [address] [place] [phone] May, [place] [address] [address] [place] [id number] [address] [place] [phone] May, Attention deficit hyperactiv ity disorder (ADHD), predominantly inattentive type F90.0 [place] [address] [address] [facility] [id number] [address] [place] [phone] May, [place] [address] [address] [place] [id number] [place] [phone] Apr, Attention deficit hyperactiv ity disorder (ADHD), predominantly inattentive type F90.0 and Non-seasonal allergic rhinitis due to other allergic trigger J30.89 [place] [address] [address] [place] [id number] [address] [place] [id number] Apr, Bipolar 1 disorder, depresse d, moderate F31.32 ; Panic disorder with agoraphobia F40.01 and Chronic post-traumatic stress disorder (PTSD) F43.12 [place] [address] [address] [place] [id number] [address] [place] [id number] 06 Apr, 2016 Dental examination Z01.20 [place] [address] [address] [facility] [id number] [address] [place] [phone] Mar, [place] [address] [address] [place] [id number] [address] [place] [phone] Mar, [place] [address] [address] [facility] [id number] [address] [place] [phone] 17 Mar, 2016 Bipolar I disorder with depr ession F31.9 and Anxiety disorder, unspecified F41.9 [place] [address] [address] [facility] [id number] [address] [place] [phone] 08 Mar, 2016 Panic disorder with agorapho syd F40.01 ; Bipolar 1 disorder, depressed, moderate F31.32 and Chronic post-traumatic stress disorder (PTSD) F43.12 [place] [address] [address] [facility] [id number] [address] [place] [phone] Mar, [place] [address] [address] [facility] [id number] [address] [place] [address] Mar, Dental caries K02.9 [place] [address] [address] [place] [id number] [address] [place] [address] Feb, Lumbago with sciatica, left side M54.42 ; Lumbago with sciatica, right side M54.41 and Other chronic pain G89.29 [place] [address] [address] [place] [id number] [place] [id number] 17 Feb, 2016 [place] [address] [place] [id number] [place] [phone] Feb, [place] [address] [address] Feb, Bipolar I disorder with depr ession F31.9 ; PTSD (post-traumatic stress disorder) F43.10 and Mood disorder F39 [place] [id number] [place] [phone] Feb, [place] [address] [address] [place] [id number] [address] [place] [phone] Feb, Dental examination Z01.20 [place] [address] [address] [place] [id number] [address] [place] [phone] Feb, [facility] [address] [facility] [id number] [address] [place] [phone] Feb, Acute bronchitis, unspecifie d organism J20.9 [place] [address] [address] [facility] [id number] [address] [place] [phone] Jan, Mood disorder F39 ; Migraine without aura and without status migrainosus, not intractable G43.009 ; Irritable bowel syndrome, unspecified type K58.9 ; Diabetes E11.9 and Encounter for immunization Z23 [facility] [place] [address] [facility] [id number] [address] [place] [phone] Jan, [facility] [place] [address] [facility] [id number] [address] [place] [phone] Jan, [facility] [place] [address] [place] [id number] [address] [place] [phone] Jan, [facility] [place] [address] [place] [id number] [address] [place] [id number] Jan, [facility] [place] [address] [place] [id number] [address] [place] [phone] Jan, [facility] [place] [address] [place] [id number] [place] [id number] Dec, Bipolar I disorder with depr ession F31.9 ; PTSD (post-traumatic stress disorder) F43.10 and Panic disorder with agoraphobia F40.01 [facility] [place] [address] [place] [id number] [address] [place] [phone] Dec, Chronic obstructive pulmonar y disease, unspecified COPD type J44.9 ; Tremor R25.1 and Anxiety F41.9 [facility] [place] [address] [place] [id number] [address] [place] [phone] Dec, [facility] [place] [address] [place] [id number] [address] [place] [phone] Nov, Tremors of nervous system R2 5.1 and Cramping of feet R25.2 [facility] [place] [address] [facility] [id number] [address] [place] [phone] Nov, [facility] [place] [address] [place] [id number] [address] [place] [phone] Nov, [facility] [place] [address] [facility] [id number] [address] [place] [phone] Oct, Chronic obstructive pulmonar y disease, unspecified J44.9 [facility] [place] [address] [place] [id number] [address] [place] [phone] Oct, [facility] [place] [address] [id number] [address] [place] [id number] Oct, Tremor R25.1 [facility] [place] [address] [facility] [id number] [address] [place] [address] Oct, Bipolar I disorder with depr ession F31.9 ; Diabetes E11.9 ; PTSD (post-traumatic stress disorder) F43.10 and Panic disorder with agoraphobia F40.01 [facility] [place] [address] [facility] [id number] [address] [place] [phone] Oct, Mood disorder F39 [facility] [place] [address] [facility] [id number] [address] [place] [phone] September, [facility] [place] [address] [place] [id number] [address] [place] [phone] September, Diabetes E11.9 ; Bipolar I d isorder with depression F31.9 ; PTSD (post-traumatic stress disorder) F43.10 and Panic disorder with agoraphobia F40.01 [facility] [place] [address] [facility] [id number] [address] [place] [address] September, Mood disorder F39 ; Schizoaf fective disorder, unspecified type F25.9 ; Arthritis M19.90 ; Tremor R25.1 ; Acute non-recurrent frontal sinusitis J01.10 and Blood in stool K92.1 [facility] [place] [address] [facility] [id number] [address] [place] [phone] September, [facility] [place] [address] [facility] [id number] [address] [place] [phone] September, Chronic obstructive pulmonar y disease, unspecified J44.9 [facility] [place] [address] [facility] [id number] [address] [place] [phone] September, Diabetes E11.9 [facility] [place] [address] [place] [id number] [address] [place] [phone] Aug, Other bipolar disorder F31.8 9 and Anxiety disorder, unspecified F41.9 [facility] [place] [address] [id number] [address] [place] [phone] Aug, [facility] [place] [address] [id number] [address] [place] [phone] Aug, Diabetes E11.9 [facility] [place] [address] [id number] [address] [place] [phone] 18 Aug, 2015 [facility] [place] [address] [id number] [address] [place] [id number] 14 Aug, 2015 Diabetes E11.9 ; Fatigue R53 .83 and Dizziness R42 [facility] [place] [address] [id number] [address] [place] [phone] 13 Aug, 2015 Other bipolar disorder F31.8 9 [facility] [place] [address] [id number] [address] [place] [phone] Aug, Generalized anxiety disorder F41.1 [facility] [place] [address] [id number] [address] [place] [phone] 07 Aug, 2015 Other bipolar disorder F31.8 9 and Anxiety disorder, unspecified F41.9 [facility] [place] [address] [id number] [address] [place] [id number] Aug, [facility] [place] [address] [id number] [address] [place] [phone] Jul, [facility] [place] [address] [id number] [address] [place] [phone] Jul, [facility] [place] [address] [id number] [address] [place] [phone] Jul, Bronchitis J40 [facility] [place] [address] [id number] [address] [place] [id number] Jul, Anxiety disorder F41.9 [facility] [place] [address] [facility] [id number] [address] [place] [phone] Jul, Other bipolar disorder F31.8 9 and Anxiety disorder, unspecified F41.9 [facility] [place] [address] [facility] [id number] [address] [place] [phone] 18 Jul, 2015 Other bipolar disorder F31.8 9 and Fibromyalgia M79.7 [facility] [place] [address] [facility] [id number] [address] [place] [id number] Jul, [facility] [place] [address] [facility] [id number] [address] [place] [phone] Jul, [facility] [place] [address] [facility] [id number] [address] [place] [id number] Jul, [facility] [place] [address] [facility] [id number] [address] [place] [phone] Jul, Other bipolar disorder F31.8 9 and Anxiety disorder, unspecified F41.9 [facility] [place] [address] [facility] [id number] [address] [place] [phone] Jun, GERD (gastroesophageal reflu x disease) K21.9 [facility] [place] [address] [facility] [id number] [address] [place] [phone] Jun, [facility] [place] [address] [facility] [id number] [address] [place] [phone] May, [facility] [place] [address] [facility] [id number] [address] [place] [phone] May, Diabetes E11.9 ; Back pain M 54.9 ; GERD (gastroesophageal reflux disease) K21.9 ; Hypertension I10 and Peripheral neuropathy G62.9 [facility] [place] [address] [facility] [id number] [address] [place] [phone] Mar, [facility] [place] [address] [place] [id number] [address] [place] [phone] Mar, [facility] [place] [address] [facility] [id number] [address] [place] [phone] Mar, Acute sinusitis J01.90 and O titis media, left H66.92 [facility] [place] [address] [facility] [id number] [address] [place] [phone] Feb, [facility] [place] [address] [facility] [id number] [address] [place] [id number] Feb, [facility] [place] [address] [facility] [id number] [address] [place] [phone] Feb, [facility] [place] [address] [facility] [id number] [address] [place] [phone] Feb, [facility] [place] [address] [facility] [id number] [address] [place] [phone] Jan, [facility] [place] [address] [facility] [id number] [place] [phone] Jan, Diabetes 250.00 and Back higinio n 724.5 [facility] [place] [address] [place] [id number] [address] [place] [phone] Jan, [facility] [place] [address] [place] [id number] [address] [place] [address] Dec, Diabetes 250.00 ; Benign ess ential hypertension 401.1 and Allergic rhinitis 477.9 [facility] [place] [address] [place] [id number] [address] [place] [id number] Dec, [facility] [place] [address] [place] [id number] [address] [place] [id number] Dec, [facility] [place] [address] [place] [id number] [address] [place] [phone] Dec, Psychosis 298.9 [facility] [place] [address] [place] [id number] [address] [place] [phone] Dec, Medication side effect 995.2 0 and Generalized anxiety disorder 300.02 [facility] [place] [address] [facility] [id number] [address] [place] [id number] Dec, Acquired cognitive dysfuncti on 294.9 [facility] [place] [address] [place] [id number] [address] [place] [phone] Dec, [facility] [place] [address] [id number] [address] [place] [phone] Dec, Unspecified myalgia and myos itis 729.1 and Generalized anxiety disorder 300.02 [facility] [place] [address] [id number] [address] [place] [phone] Nov, [facility] [place] [address] [id number] [address] [place] [phone] Nov, [facility] [place] [address] [id number] [address] [place] [phone] Nov, [facility] [place] [address] [id number] [address] [place] [phone] Nov, Upper respiratory infection 465.9 and Chronic airway obstruction, not elsewhere classified 496 [facility] [place] [address] [facility] [id number] [address] [place] [phone] Nov, Hyponatremia 276.1 [facility] [place] [address] [facility] [id number] [address] [place] [phone] Oct, [facility] [place] [address] [facility] [id number] [address] [place] [phone] Oct, [facility] [place] [address] [facility] [id number] [address] [place] [phone] Oct, [facility] [place] [address] [facility] [id number] [address] [place] [phone] Oct, [facility] [place] [address] [facility] [id number] [address] [place] [phone] Oct, Hyponatremia 276.1 [facility] [place] [address] [id number] [address] [place] [phone] Oct, [facility] [place] [address] [facility] [id number] [address] [place] [phone] Oct, [facility] [place] [address] [facility] [id number] [address] [place] [phone] Oct, Generalized anxiety disorder 300.02 [facility] [place] [address] [id number] [address] [place] [phone] Oct, Generalized anxiety disorder 300.02 and Diabetes 250.00 [facility] [address] [id number] [address] [place] [address], [place] [address] 14 Aug, 2014 [facility] [address] [id number] [address] [place] [address], [place] [address] Aug, [facility] [address] [id number] [address] [place] [phone] Jul, [facility] [address] [id number] [address] [place] [id number] Jul, [facility] [address] [id number] [address] [place] [address], [place] [address] Jun, [facility] [place] [address] [id number] [address] [place] [address], [place] [address] Jun, [facility] [address] [id number] [address] [place] [address], [place] [address] Jun, [facility] [address] [id number] [address] [place] [address], [place] [address] Jun, [facility] [place] [address] [id number] [address] [place] [id number] Jun, [facility] [place] [address] [id number] [address] [place] [address], [place] [address] May, [facility] [place] [address] [id number] [address] [place] [id number] May, [facility] [place] [address] [id number] [address] [place] [id number] Apr, [facility] [address] [id number] [address] [place] [id number] Apr, [facility] [place] [address] [id number] [address] [place] [id number] Apr, [facility] [address] [id number] [address] [place] [address], [place] [address] Apr, [facility] [address] [id number] [address] [place] [address], [place] [address] Apr, [facility] [address] [id number] [address] [place] [address], [place] [address] Apr, [facility] [address] [id number] [address] [place] [address], [place] [address] Apr, [facility] [address] [id number] [address] [place] [address], [place] [address] Apr, [facility] [address] [id number] [address] [place] [address], [place] [address] Feb, [facility] [address] [id number] [address] [place] [address], [place] [address] Feb, [facility] [address] [id number] [address] [place] [address], [place] [address] Jan, [facility] [address] [id number] [address] [place] [address], [place] [address] Jan, [facility] [address] [id number] [address] [place] [address], [place] [address] Dec, [facility] [address] [id number] [address] [place] [address], [place] [address] Dec, [facility] [address] [id number] [address] [place] [address], [place] [address] Dec, [facility] [address] [id number] [address] [place] [address], [place] [address] Nov, [facility] [address] [id number] [address] [place] [address], [place] [address] Nov, [facility] [address] [id number] [address] [place] [address], [place] [address] Nov, [facility] [address] [id number] [address] [place] [address], [place] [address] Oct, [facility] [address] [address] [id number] [address] [place] [address], [place] [address] Oct, [facility] [address] [id number] [address] [place] [address], [place] [address] Oct, [facility] [address] [id number] [address] [place] [address], [place] [address] September, [facility] [address] [id number] [address] [place] [address], [place] [address] September, [facility] [address] [id number] [address] [place] [address], [place] [address] September, [facility] [address] [id number] [address] [place] [address], [place] [address] Aug, [facility] [address] [id number] [address] [place] [address], [place] [address] Aug, [facility] [address] [id number] [address] [place] [address], [place] [address] Aug, [facility] [address] [id number] [address] [place] [address], [place] [address] 16 Aug, 2011 [facility] [address] [id number] [address] [place] [address], [place] [address] Jul, [facility] [address] [id number] [address] [place] [address], [place] [address] Jun, [facility] [address] [id number] [address] [place] [address], [place] [address] 14 Jun, 2011 [facility] [address] [id number] [address] [place] [address], [place] [address] 13 Jun, 2011 [facility] [address] [id number] [address] [place] [address], [place] [address] 07 Jun, 2011 [facility] [address] [id number] [address] [place] [address], [place] [address] 03 Jun, 2011 [facility] [address] [id number] [address] [place] [address], [place] [address] May, [facility] [address] [id number] [address] [place] [address], [place] [address] May, [facility] [address] [id number] [address] [place] [address], [place] [address] May, [facility] [address] [id number] [address] [place] [address], [place] [address] May, [facility] [address] [id number] [address] [place] [address], [place] [address] Apr, [facility] [address] [id number] [address] [place] [address], [place] [address] Apr, [facility] [address] [id number] [address] [place] [address], [place] [address] Apr, [facility] [address] [id number] [address] [place] [address], [place] [address] Mar, [facility] [address] [id number] [address] [place] [address], [place] [address] Mar, [facility] [address] [id number] [address] [place] [address], [place] [address] Mar, [facility] [address] [id number] [address] [place] [address], [place] [address] Feb, [facility] [address] [id number] [address] [place] [address], [place] [address] Feb, [facility] [address] [id number] [address] [place] [address], [place] [address] Feb, [facility] [address] [id number] [address] [place] [address], [place] [address] Nov, [facility] [address] [id number] [address] [place] [address], [place] [address] September, [facility] [address] [id number] [address] [place] [address], [place] [address] Aug, [facility] [place] [address] [id number] [address] [place] [id number] Jul, [facility] [place] [address] [id number] [address] [place] [address] May, [facility] [place] [address] [id number] [address] [place] [address] Apr, [facility] [place] [address] [id number] [address] [place] [address] Apr, [facility] [place] [address] [id number] [address] [place] [address] Apr, [facility] [place] [address] [facility] [id number] [address] [place] [address] Apr, [facility] [place] [address] [facility] [id number] [address] [place] [id number] Apr, IMMUNIZATIONS No Known Immunizations SOCIAL HISTORY Never Assessed REASON FOR VISIT ER note PLAN OF CARE VITAL SIGNS MEDICATIONS Medication Instructions Dosage Frequency Start Date End Date Duration S tatus Linzess 290 MCG Orally Once a day 1 capsule 24h Jul, 30 day(s) Active RESULTS No Results PROCEDURES [...]
--- OUTSIDE RECORDS SUMMARY | 2019-07-17 11:16 | XMS REPORT ---
Author Author Sujey GANDHI Organization [facility] Address [address] [place] [address] Care Team Providers Care Study Director Name Role Phone WHIT GANDHI Unavailable PROBLEMS Type Condition ICD9-CM Code GDI68-DY Code Onset Dates Condition S tatus SNOMED Code Problem Back pain M54.9 Active 030297147 Problem Diabetes E11.9 Active 06812561 Problem GERD (gastroesophageal reflux disease) K21.9 Active 239009204 Problem Hypertension I10 Active 4092447 3 Problem Anxiety disorder, unspecified F41.9 Active 480330981 Problem Other bipolar disorder F31.89 Active 95778044 Problem Fibromyalgia M79.7 Active 9409712 7 Problem Panic disorder with agoraphobia F40.01 Active 62817912 Problem Panlobular emphysema J43.1 Active 3030532 Problem Chronic obstructive pulmonary disease, unspecified J44.9 Active 02472223 Problem Akathisia G25.71 Active 449260849 Problem Lumbago with sciatica, left side M54.42 Active 899109334 Problem Migraine without aura and without status migrain osus, not intractable G43.009 Active 720789089 Problem Fibrocystic disease of right breast N60.11 Active 42948846 Problem Fibrocystic disease of left breast N60.12 Active 51615741 Problem Slow transit constipation K59.01 Acti ve 82280704 Problem Essential tremor G25.0 Active 609 373765 Problem Bipolar 1 disorder, depressed, moderate F31.32 Active 25439245 Problem Other chronic pain G89.29 Active 8 5838830 Problem Lumbago with sciatica, right side M54.41 Active 821320549 Problem Irritable bowel syndrome with constipation K58.1 Active 833652823 Problem Arthritis M19.90 Active 7671436 Problem Schizoaffective disorder, bipolar type F25.0 Active 91540226 Problem Irritable bowel syndrome with both constipation and diarrh ea K58.2 Active 56198349 Problem Attention deficit hyperactiv ity disorder (ADHD), predominantly inattentive type F90.0 Active 94251699 Problem Bipolar I disorder with depression F31.9 Active 02925296 Problem Chronic post-traumatic stress disorder (PTSD) F43. 12 Active 633697799 Problem Bipolar affective disorder, remission status unspecified F31.9 Active 66035731 Problem Mild persistent asthma without complication J45.30 Active 420850009 Problem Moderate persistent asthma without complication J4 5.40 Active 688745682 Problem Acute non-recurrent maxillary sinusitis J01.00 Active 93023357 Problem Bipolar 1 disorder, depressed, partial remission F 31.75 Active 65716267 ALLERGIES No Information ENCOUNTERS Encounter Location Date Diagnosis [place] [id number] [facility] [id number] [address] [place] [address] Nov, [place] [address] [address] [place] [id number] [address] [place] [address] Nov, [place] [address] [address] [facility] [id number] [address] [place] [address] Nov, [place] [address] [address] [facility] [id number] [address] [place] [address] Nov, Mild persistent asthma witho ut complication J45.30 and Irritable bowel syndrome with both constipation and diarrhea K58.2 [place] [address] [address] [facility] [id number] [address] [place] [address] Nov, [place] [address] [facility] [id number] [address] [place] [address] Oct, [place] [address] [facility] [id number] [address] [place] [address] Oct, [place] [address] [facility] [id number] [address] [place] [address] Oct, Type 2 diabetes mellitus wit h diabetic neuropathy, unspecified whether ocean transportation intermediary insulin use E11.40 ; Diabetes E11.9 ; Slow transit constipation K59.01 ; Edema of both legs R60.0 and Dysfunction of right eustachian tube H69.81 [place] [address] [facility] [id number] [address] [place] [address] Oct, Frequent headaches R51 [facility] [address] [id number] [address] [place] [address] Oct, [facility] [address] [id number] [address] [place] [address] Oct, [facility] [address] [id number] [address] [place] [address] Oct, [facility] [address] [id number] [address] [place] [address] Oct, [facility] [address] [id number] [address] [place] [address] Oct, [facility] [address] [id number] [address] [place] [address] Oct, [facility] [address] [id number] [address] [place] [address] Oct, [facility] [address] [id number] [address] [place] [address] Oct, [facility] [address] [facility] [id number] [address] [place] [address] September, Frequent headaches R51 [facility] [address] [facility] [id number] [address] [place] [address] September, Bilateral otitis media with effusion H65.93 ; Dizziness R42 and Essential tremor G25.0 [facility] [address] [id number] [address] [place] [address] September, Chronic obstructive pulmonar y disease, unspecified COPD type J44.9 [facility] [address] [facility] [id number] [address] [place] [address] September, Chronic obstructive pulmonar y disease, unspecified COPD type J44.9 [facility] [address] [facility] [id number] [address] [place] [address] September, Migraine without aura and wi thout status migrainosus, not intractable G43.009 [facility] [address] [facility] [id number] [address] [place] [address] September, [facility] [address] [facility] [id number] [address] [place] [address] September, [facility] [address] [facility] [id number] [address] [place] [address] September, [facility] [address] [facility] [id number] [address] [place] [address] September, Frequent headaches R51 [facility] [address] [facility] [id number] [address] [place] [address] Aug, [facility] [address] [place] [id number] [address] [place] [address] Aug, Breast mass, right N63.10 [facility] [address] [place] [id number] [address] [place] [address] Aug, Breast lump N63.0 [facility] [address] [facility] [id number] [address] [place] [address] Aug, [facility] [address] [address] Aug, Bipolar affective disorder, remission status unspecified F31.9 and Diabetes E11.9 [place] [address] [address] [place] [id number] [address] [place] [address] Aug, Diabetes E11.9 ; Schizoaffec tive disorder, bipolar type F25.0 ; Pharyngitis due to other organism J02.8 ; Panlobular emphysema J43.1 and Irritable bowel syndrome with both constipation and diarrhea K58.2 [facility] [address] [place] [id number] [address] [place] [address] Aug, Abnormal mammogram R92.8 [facility] [address] [place] [id number] [address] [place] [address] Aug, [facility] [address] [place] [address] [place] [address] Aug, Bipolar 1 disorder, depresse d, moderate F31.32 ; Panic disorder with agoraphobia F40.01 and Chronic post-traumatic stress disorder (PTSD) F43.12 [facility] [address] [facility] [id number] [address] [place] [address] Aug, [facility] [address] [place] [id number] [address] [place] [address] Aug, [facility] [address] [facility] [id number] [address] [place] [address] Aug, [facility] [address] [place] [id number] [place] [address] Jul, [facility] [address] [place] [id number] [place] [address] Jul, Mild persistent asthma witho ut complication J45.30 [facility] [address] [place] [id number] [address] [place] [address] Jul, Mild persistent asthma witho ut complication J45.30 [facility] [address] [address] 15 Jul, 2017 Bipolar affective disorder, remission status unspecified F31.9 ; Diabetes E11.9 and Irritable bowel syndrome with constipation K58.1 [facility] [id number] [place] [address] Jul, [facility] [address] [place] [id number] [address] [place] [address] Jul, [facility] [address] [address] 08 Jul, 2017 Frequent headaches R51 [facility] [address] [place] [id number] [address] [place] [address] 07 Jul, 2017 [facility] [address] [place] [id number] [address] [place] [address] Jul, [facility] [address] [place] [address] Jul, [place] [address] [address] Jul, Frequent headaches R51 ; Fib rocystic disease of left breast N60.12 ; Fibrocystic disease of right breast N60.11 and Diabetes E11.9 [place] [address] [address] Jul, [place] [address] [address] Jul, [place] [address] [address] Jun, Exudative tonsillitis J03.90 [place] [address] [address] 20 Jun, 2017 [place] [address] [address] 19 Jun, 2017 [place] [address] [address] 15 Jun, 2017 Mild persistent asthma witho ut complication J45.30 ; Chronic obstructive pulmonary disease, unspecified COPD type J44.9 and Exudative tonsillitis J03.90 [place] [address] [address] 13 Jun, 2017 Encounter for immunization Z 23 [place] [address] [place] [id number] [address] [place] [address] Jun, [place] [address] [address] Jun, [place] [address] [address] 09 Jun, 2017 [facility] [address] [place] [id number] [address] [place] [address] 06 Jun, 2017 Tonsillitis J03.90 [facility] [address] [address] 05 Jun, 2017 [facility] [address] [address] 03 Jun, 2017 Acute non-recurrent maxillar y sinusitis J01.00 [facility] [address] [address] 02 Jun, 2017 [facility] [address] [address] May, [place] [address] [address] May, [place] [address] [address] May, GERD (gastroesophageal reflu x disease) K21.9 [place] [address] [address] May, Migraine without aura and wi thout status migrainosus, not intractable G43.009 [place] [address] [address] May, [place] [address] [address] May, [place] [address] [address] May, Panlobular emphysema J43.1 a nd Acute non-recurrent maxillary sinusitis J01.00 [place] [address] [address] May, Bipolar 1 disorder, depresse d, moderate F31.32 ; Panic disorder with agoraphobia F40.01 and Akathisia G25.71 [place] [address] [address] Apr, [facility] [address] [id number] [address] [place] [address] Apr, [facility] [address] [facility] [id number] [address] [place] [address] Apr, Acute non-recurrent maxillar y sinusitis J01.00 [facility] [address] [facility] [id number] [address] [place] [address] 07 Apr, 2017 Panlobular emphysema J43.1 [facility] [address] [id number] [address] [place] [address] 04 Apr, 2017 [facility] [address] [facility] [id number] [address] [place] [address] 04 Apr, 2017 Sore throat J02.9 and Exudat minoo tonsillitis J03.90 [facility] [address] [facility] [id number] [address] [place] [address] 17 Mar, 2017 [facility] [address] [facility] [id number] [address] [place] [address] 15 Mar, 2017 Acute non-recurrent maxillar y sinusitis J01.00 [facility] [address] [facility] [id number] [address] [place] [address] Mar, [facility] [address] [facility] [id number] [address] [place] [address] 09 Mar, 2017 Panlobular emphysema J43.1 a nd Diabetes E11.9 [facility] [address] [facility] [id number] [address] [place] [address] 06 Mar, 2017 [facility] [address] [facility] [id number] [address] [place] [address] Feb, Wheezing R06.2 and Acute rec urrent pansinusitis J01.41 [facility] [address] [facility] [id number] [address] [place] [address] Feb, [facility] [address] [facility] [id number] [address] [place] [address] Feb, Acute non-recurrent maxillar y sinusitis J01.00 [facility] [address] [id number] [address] [place] [address] 16 Feb, 2017 Chronic obstructive pulmonar y disease, unspecified J44.9 [facility] [address] [id number] [address] [place] [address] Feb, Hypoxemia R09.02 and Chronic obstructive pulmonary disease, unspecified J44.9 [facility] [address] [id number] [address] [place] [address] 28 Jan, 2017 Bipolar 1 disorder, depresse d, moderate F31.32 ; Panic disorder with agoraphobia F40.01 ; Chronic post-traumatic stress disorder (PTSD) F43.12 ; Diabetes E11.9 and Moderate persistent asthma without complication J45.40 [place] [address] [id number] [address] [place] [address] Jan, [facility] [address] [id number] [address] [place] [address] 19 Jan, 2017 Acute non-recurrent maxillar y sinusitis J01.00 [facility] [address] [id number] [address] [place] [address] 18 Jan, 2017 [facility] [address] [id number] [address] [place] [address] 18 Jan, 2017 [facility] [address] [id number] [address] [place] [address] Jan, Moderate persistent asthma w [facility] complication J45.40 and Hypoxemia R09.02 [facility] [address] [id number] [address] [place] [address] 11 Jan, 2017 Moderate persistent asthma w [facility] complication J45.40 and Hypoxemia R09.02 [facility] [address] [id number] [address] [place] [address] Jan, [facility] [address] [facility] [id number] [address] [place] [address] Dec, Acute non-recurrent maxillar y sinusitis J01.00 [facility] [address] [id number] [address] [place] [address] Dec, Chronic obstructive pulmonar y disease, unspecified J44.9 [facility] [address] [id number] [address] [place] [address] Dec, [facility] [address] [id number] [address] [place] [address] Dec, Mild persistent asthma witho ut complication J45.30 and Other chronic pain G89.29 [facility] [address] [id number] [address] [place] [address] Nov, [facility] [address] [id number] [address] [place] [address] Nov, Acute non-recurrent maxillar y sinusitis J01.00 [facility] [address] [id number] [address] [place] [address] Nov, [facility] [address] [id number] [address] [place] [address] Nov, [facility] [address] [id number] [address] [place] [address] Oct, [facility] [address] [id number] [address] [place] [address] Oct, Bipolar 1 disorder, depresse d, partial remission F31.75 ; Panic disorder with agoraphobia F40.01 and Chronic post-traumatic stress disorder (PTSD) F43.12 [facility] [address] [id number] [address] [place] [address] Oct, Acute non-recurrent maxillar y sinusitis J01.00 [facility] [address] [id number] [address] [place] [address] Oct, [facility] [address] [facility] [id number] [address] [place] [address] Oct, Diabetes E11.9 [facility] [address] [facility] [id number] [address] [place] [address] September, Diabetes E11.9 [facility] [address] [facility] [id number] [address] [place] [address] September, Diabetes E11.9 and Sinus tac hycardia R00.0 [facility] [address] [facility] [id number] [address] [place] [address] September, [facility] [address] [facility] [id number] [address] [place] [address] September, [facility] [address] [facility] [id number] [address] [place] [address] Aug, Diabetes E11.9 and Lumbago w ith sciatica, right side M54.41 [facility] [address] [facility] [id number] [address] [place] [address] Aug, [facility] [address] [facility] [id number] [address] [place] [address] Jul, Bipolar 1 disorder, depresse d, moderate F31.32 ; Panic disorder with agoraphobia F40.01 and Chronic post-traumatic stress disorder (PTSD) F43.12 [facility] [address] [facility] [id number] [address] [place] [address] Jul, Sore throat J02.9 [facility] [address] [facility] [id number] [address] [place] [address] Jul, [facility] [address] [facility] [id number] [address] [place] [address] Jul, [facility] [address] [facility] [id number] [address] [place] [address] Jul, [facility] [address] [facility] [id number] [address] [place] [address] Jul, [facility] [address] [facility] [id number] [address] [place] [address] Jul, Sore throat J02.9 and Pharyn gitis, unspecified etiology J02.9 [facility] [address] [id number] [address] [place] [address] Jun, [facility] [address] [id number] [address] [place] [address] Jun, Diabetes E11.9 [facility] [address] [id number] [address] [place] [address] Jun, [facility] [address] [id number] [address] [place] [address] Jun, [facility] [address] [facility] [id number] [address] [place] [address] Jun, [facility] [address] [facility] [id number] [address] [place] [address] Jun, [facility] [address] [facility] [id number] [address] [place] [address] Jun, [facility] [address] [facility] [id number] [address] [place] [address] Jun, [facility] [address] [facility] [id number] [address] [place] [address] Jun, [facility] [address] [facility] [id number] [address] [place] [address] Jun, [facility] [address] [facility] [id number] [address] [place] [address] May, Diabetes E11.9 ; Bipolar I d isorder with depression F31.9 ; Other chronic pain G89.29 ; Acute recurrent maxillary sinusitis J01.01 and Anxiety disorder, unspecified F41.9 [facility] [address] [facility] [id number] [address] [place] [address] May, [facility] [address] [facility] [id number] [address] [place] [address] May, Diabetes E11.9 ; Bipolar I d isorder with depression F31.9 ; Anxiety disorder, unspecified F41.9 ; Other chronic pain G89.29 and Acute recurrent maxillary sinusitis J01.01 [place] [address] [facility] [id number] [address] [place] [address] May, [place] [address] [facility] [id number] [address] [place] [address] May, Attention deficit hyperactiv ity disorder (ADHD), predominantly inattentive type F90.0 [place] [address] [facility] [id number] [address] [place] [phone] May, [place] [address] [address] [place] [id number] [address] [place] [phone] Apr, Attention deficit hyperactiv ity disorder (ADHD), predominantly inattentive type F90.0 and Non-seasonal allergic rhinitis due to other allergic trigger J30.89 [place] [address] [address] [place] [id number] [address] [place] [phone] Apr, Bipolar 1 disorder, depresse d, moderate F31.32 ; Panic disorder with agoraphobia F40.01 and Chronic post-traumatic stress disorder (PTSD) F43.12 [place] [address] [address] [place] [id number] [address] [place] [phone] Apr, Dental examination Z01.20 [place] [address] [address] [place] [id number] [address] [place] [phone] Mar, [place] [address] [facility] [id number] [address] [place] [phone] Mar, [place] [address] [address] [place] [id number] [address] [place] [phone] Mar, Bipolar I disorder with depr ession F31.9 and Anxiety disorder, unspecified F41.9 [place] [address] [address] [place] [id number] [address] [place] [phone] Mar, Panic disorder with agorapho syd F40.01 ; Bipolar 1 disorder, depressed, moderate F31.32 and Chronic post-traumatic stress disorder (PTSD) F43.12 [place] [address] [address] [place] [id number] [address] [place] [phone] Mar, [place] [address] [address] [place] [id number] [address] [place] [phone] Mar, Dental caries K02.9 [place] [address] [address] [place] [id number] [place] [phone] Feb, Lumbago with sciatica, left side M54.42 ; Lumbago with sciatica, right side M54.41 and Other chronic pain G89.29 [place] [address] [address] [place] [id number] [place] [phone] 17 Feb, 2016 [place] [address] [address] [place] [id number] [place] [phone] Feb, [place] [address] [phone] Feb, Bipolar I disorder with depr ession F31.9 ; PTSD (post-traumatic stress disorder) F43.10 and Mood disorder F39 [place] [id number] [place] [phone] Feb, [place] [address] [address] [place] [id number] [address] [place] [phone] Feb, Dental examination Z01.20 [place] [address] [place] [id number] [address] [place] [address] Feb, [facility] [address] [place] [address] [id number] [address] [place] [address] Feb, Acute bronchitis, unspecifie d organism J20.9 [facility] [address] [facility] [id number] [address] [place] [address] Jan, Mood disorder F39 ; Migraine without aura and without status migrainosus, not intractable G43.009 ; Irritable bowel syndrome, unspecified type K58.9 ; Diabetes E11.9 and Encounter for immunization Z23 [facility] [address] [facility] [id number] [address] [place] [address] Jan, [facility] [address] [facility] [id number] [address] [place] [address] Jan, [facility] [address] [place] [id number] [address] [place] [address] Jan, [facility] [address] [place] [id number] [address] [place] [address] Jan, [facility] [address] [facility] [id number] [address] [place] [address] Jan, [facility] [address] [place] [id number] [address] [place] [address] Dec, Bipolar I disorder with depr ession F31.9 ; PTSD (post-traumatic stress disorder) F43.10 and Panic disorder with agoraphobia F40.01 [facility] [id number] [place] [address] Dec, Chronic obstructive pulmonar y disease, unspecified COPD type J44.9 ; Tremor R25.1 and Anxiety F41.9 [facility] [address] [place] [id number] [address] [place] [address] Dec, [facility] [address] [place] [id number] [address] [place] [address] Nov, Tremors of nervous system R2 5.1 and Cramping of feet R25.2 [facility] [address] [facility] [id number] [address] [place] [address] Nov, [facility] [address] [place] [id number] [address] [place] [address] Nov, [facility] [address] [place] [id number] [address] [place] [address] Oct, Chronic obstructive pulmonar y disease, unspecified J44.9 [facility] [address] [place] [id number] [address] [place] [address] Oct, [facility] [address] [facility] [id number] [address] [place] [address] Oct, Tremor R25.1 [facility] [address] [facility] [id number] [address] [place] [address] Oct, Bipolar I disorder with depr ession F31.9 ; Diabetes E11.9 ; PTSD (post-traumatic stress disorder) F43.10 and Panic disorder with agoraphobia F40.01 [facility] [address] [facility] [id number] [address] [place] [address] Oct, Mood disorder F39 [place] [address] [facility] [id number] [address] [place] [address] September, [place] [address] [place] [id number] [address] [place] [address] September, Diabetes E11.9 ; Bipolar I d isorder with depression F31.9 ; PTSD (post-traumatic stress disorder) F43.10 and Panic disorder with agoraphobia F40.01 [place] [address] [facility] [id number] [address] [place] [address] September, Mood disorder F39 ; Schizoaf fective disorder, unspecified type F25.9 ; Arthritis M19.90 ; Tremor R25.1 ; Acute non-recurrent frontal sinusitis J01.10 and Blood in stool K92.1 [facility] [address] [facility] [id number] [address] [place] [address] September, [place] [address] [facility] [id number] [address] [place] [address] September, Chronic obstructive pulmonar y disease, unspecified J44.9 [facility] [address] [facility] [id number] [address] [place] [address] September, Diabetes E11.9 [place] [address] [place] [id number] [address] [place] [address] Aug, Other bipolar disorder F31.8 9 and Anxiety disorder, unspecified F41.9 [facility] [address] [id number] [address] [place] [address] Aug, [facility] [address] [id number] [address] [place] [address] Aug, Diabetes E11.9 [facility] [address] [id number] [address] [place] [address] 18 Aug, 2015 [facility] [address] [id number] [address] [place] [address] 14 Aug, 2015 Diabetes E11.9 ; Fatigue R53 .83 and Dizziness R42 [facility] [address] [id number] [address] [place] [address] 13 Aug, 2015 Other bipolar disorder F31.8 9 [facility] [address] [id number] [address] [place] [address] 07 Aug, 2015 Generalized anxiety disorder F41.1 [facility] [address] [id number] [address] [place] [address] 07 Aug, 2015 Other bipolar disorder F31.8 9 and Anxiety disorder, unspecified F41.9 [facility] [address] [id number] [address] [place] [address] Aug, [facility] [address] [id number] [address] [place] [address] Jul, [facility] [address] [id number] [address] [place] [address] Jul, [facility] [address] [id number] [address] [place] [address] Jul, Bronchitis J40 [facility] [address] [id number] [address] [place] [address] Jul, Anxiety disorder F41.9 [facility] [address] [id number] [address] [place] [address] Jul, Other bipolar disorder F31.8 9 and Anxiety disorder, unspecified F41.9 [facility] [address] [id number] [address] [place] [address] Jul, Other bipolar disorder F31.8 9 and Fibromyalgia M79.7 [facility] [address] [id number] [address] [place] [address] Jul, [facility] [address] [facility] [id number] [address] [place] [address] Jul, [facility] [address] [id number] [address] [place] [address] Jul, [facility] [address] [facility] [id number] [address] [place] [address] Jul, Other bipolar disorder F31.8 9 and Anxiety disorder, unspecified F41.9 [facility] [address] [facility] [id number] [address] [place] [address] Jun, GERD (gastroesophageal reflu x disease) K21.9 [facility] [address] [facility] [id number] [address] [place] [address] Jun, [facility] [address] [facility] [id number] [address] [place] [address] May, [facility] [address] [facility] [id number] [address] [place] [address] May, Diabetes E11.9 ; Back pain M 54.9 ; GERD (gastroesophageal reflux disease) K21.9 ; Hypertension I10 and Peripheral neuropathy G62.9 [facility] [address] [facility] [id number] [address] [place] [address] Mar, [facility] [address] [facility] [id number] [address] [place] [address] Mar, [facility] [address] [facility] [id number] [address] [place] [address] Mar, Acute sinusitis J01.90 and O titis media, left H66.92 [facility] [address] [id number] [address] [place] [address] Feb, [facility] [address] [facility] [id number] [address] [place] [address] Feb, [facility] [address] [facility] [id number] [address] [place] [address] Feb, [facility] [address] [facility] [id number] [address] [place] [address] Feb, [facility] [address] [facility] [id number] [address] [place] [address] Jan, [facility] [address] [facility] [id number] [address] [place] [address] Jan, Diabetes 250.00 and Back higinio n 724.5 [facility] [address] [facility] [id number] [address] [place] [address] Jan, [facility] [address] [facility] [id number] [address] [place] [address] Dec, Diabetes 250.00 ; Benign ess ential hypertension 401.1 and Allergic rhinitis 477.9 [facility] [address] [facility] [id number] [address] [place] [address] Dec, [facility] [address] [facility] [id number] [address] [place] [address] Dec, [facility] [address] [facility] [id number] [address] [place] [address] Dec, Psychosis 298.9 [facility] [address] [facility] [id number] [address] [place] [address] Dec, Medication side effect 995.2 0 and Generalized anxiety disorder 300.02 [facility] [address] [facility] [id number] [address] [place] [address] Dec, Acquired cognitive dysfuncti on 294.9 [facility] [address] [facility] [id number] [address] [place] [address] Dec, [facility] [address] [facility] [id number] [address] [place] [address] Dec, Unspecified myalgia and myos itis 729.1 and Generalized anxiety disorder 300.02 [facility] [address] [id number] [address] [place] [address] Nov, [facility] [address] [facility] [id number] [address] [place] [address] Nov, [facility] [address] [id number] [address] [place] [address] Nov, [facility] [address] [facility] [id number] [address] [place] [address] Nov, Upper respiratory infection 465.9 and Chronic airway obstruction, not elsewhere classified 496 [facility] [address] [facility] [id number] [address] [place] [address] Nov, Hyponatremia 276.1 [facility] [address] [facility] [id number] [address] [place] [address] Oct, [facility] [address] [facility] [id number] [address] [place] [address] Oct, [facility] [address] [facility] [id number] [address] [place] [address] Oct, [facility] [address] [facility] [id number] [address] [place] [address] Oct, [facility] [address] [facility] [id number] [address] [place] [address] Oct, Hyponatremia 276.1 [facility] [address] [facility] [id number] [address] [place] [address] Oct, [facility] [address] [facility] [id number] [address] [place] [address] Oct, [facility] [address] [facility] [id number] [address] [place] [address] Oct, Generalized anxiety disorder 300.02 [facility] [address] [id number] [address] [place] [address] Oct, Generalized anxiety disorder 300.02 and Diabetes 250.00 [facility] [address] [id number] [address] [place] [address] 14 Aug, 2014 [facility] [address] [id number] [address] [place] [address] Aug, [facility] [address] [id number] [address] [place] [address] Jul, [facility] [address] [id number] [address] [place] [address] Jul, [facility] [address] [id number] [address] [place] [address] Jun, [facility] [address] [id number] [address] [place] [address] Jun, [facility] [address] [id number] [address] [place] [address] Jun, [facility] [address] [id number] [address] [place] [address], [place] [address] Jun, [facility] [address] [id number] [address] [place] [address] Jun, [facility] [address] [id number] [address] [place] [address] May, [facility] [address] [id number] [address] [place] [address] May, [facility] [address] [id number] [address] [place] [address] Apr, [facility] [address] [id number] [address] [place] [address] Apr, [facility] [address] [id number] [address] [place] [address] Apr, [facility] [address] [id number] [address] [place] [address], [place] [address] Apr, [facility] [address] [id number] [address] [place] [address], [place] [address] Apr, [facility] [address] [id number] [address] [place] [address], [place] [address] Apr, [facility] [address] [id number] [address] [place] [address], [place] [address] Apr, [facility] [address] [id number] [address] [place] [address], [place] [address] Apr, [facility] [address] [id number] [address] [place] [address], [place] [address] Feb, [facility] [address] [id number] [address] [place] [address], [place] [address] Feb, [facility] [address] [id number] [address] [place] [address], [place] [address] Jan, [facility] [address] [id number] [address] [place] [address], [place] [address] Jan, [facility] [address] [id number] [address] [place] [address], [place] [address] Dec, [facility] [address] [id number] [address] [place] [address], [place] [address] Dec, [facility] [address] [id number] [address] [place] [address], [place] [address] Dec, [facility] [address] [id number] [address] [place] [address], [place] [address] Nov, [facility] [address] [id number] [address] [place] [address], [place] [address] Nov, [facility] [address] [id number] [address] [place] [address], [place] [address] Nov, [facility] [address] [id number] [address] [place] [address] [place] [address] Oct, [facility] [address] [id number] [address] [place] [address], [place] [address] Oct, [facility] [address] [id number] [address] [place] [address], [place] [address] Oct, [facility] [address] [id number] [address] [place] [address], [place] [address] September, [facility] [address] [id number] [address] [place] [address], [place] [address] September, [facility] [address] [id number] [address] [place] [address], [place] [address] September, [facility] [address] [id number] [address] [place] [address], [place] [address] Aug, [facility] [address] [id number] [address] [place] [address], [place] [address] Aug, [facility] [address] [id number] [address] [place] [address], [place] [address] Aug, [facility] [address] [id number] [address] [place] [address], [place] [address] 16 Aug, 2011 [facility] [address] [id number] [address] [place] [address], [place] [address] Jul, [facility] [address] [id number] [address] [place] [address], [place] [address] Jun, [facility] [address] [id number] [address] [place] [address], [place] [address] 14 Jun, 2011 [facility] [address] [id number] [address] [place] [address], [place] [address] 13 Jun, 2011 [facility] [address] [id number] [address] [place] [address], [place] [address] 07 Jun, 2011 [facility] [address] [id number] [address] [place] [address], [place] [address] 03 Jun, 2011 [facility] [address] [id number] [address] [place] [address], [place] [address] May, [facility] [address] [id number] [address] [place] [address], [place] [address] May, [facility] [address] [id number] [address] [place] [address], [place] [address] May, [facility] [address] [id number] [address] [place] [address], [place] [address] May, [facility] [address] [id number] [address] [place] [address], [place] [address] Apr, [facility] [address] [id number] [address] [place] [address], [place] [address] Apr, [facility] [address] [id number] [address] [place] [address], [place] [address] Apr, [facility] [address] [id number] [address] [place] [address], [place] [address] Mar, [facility] [address] [id number] [address] [place] [address], [place] [address] Mar, [facility] [address] [id number] [address] [place] [address], [place] [address] Mar, [facility] [address] [id number] [address] [place] [address] Feb, [facility] [address] [id number] [address] [place] [address] Feb, [facility] [address] [id number] [address] [place] [address], [place] [address] Feb, [facility] [address] [id number] [address] [place] [address], [place] [address] Nov, [facility] [address] [id number] [address] [place] [address], [place] [address] September, [facility] [address] [id number] [address] [place] [address] Aug, [facility] [address] [id number] [address] [place] [address] Jul, [facility] [address] [facility] [id number] [address] [place] [address] May, [facility] [address] [facility] [id number] [address] [place] [id number] Apr, [facility] [address] [facility] [id number] [address] [place] [id number] Apr, [facility] [address] [facility] [id number] [address] [place] [id number] Apr, [facility] [address] [facility] [id number] [address] [place] [id number] Apr, [facility] [address] [facility] [id number] [address] [place] [id number] Apr, IMMUNIZATIONS No Known Immunizations SOCIAL HISTORY Never Assessed REASON FOR VISIT Controlled Med Refill 07/15/17 PLAN OF CARE VITAL SIGNS MEDICATIONS Medication Instructions Dosage Frequency Start Date End Date Duration S samantha Roberts 7.5-325 MG Orally 3 times a day 1 tablet as needed 8h Jul, 28 days Active RESULTS No Results [...]
--- OUTSIDE RECORDS SUMMARY | 2019-07-17 11:16 | XMS REPORT ---
Author Author Sujey GANDHI Organization [facility], [place] Address [address] [place] [address] Care Team Providers Care Extrusion Press Adjuster Name Role Phone WHIT GANDHI Unavailable PROBLEMS Type Condition ICD9-CM Code NRG05-AE Code Onset Dates Condition S tatus SNOMED Code Problem Back pain M54.9 Active 836362451 Problem GERD (gastroesophageal reflux disease) K21.9 Active 438758358 Problem Diabetes E11.9 Active 92976847 Problem Hypertension I10 Active 8898611 3 Problem Anxiety disorder, unspecified F41.9 Active 481594678 Problem Other bipolar disorder F31.89 Active 18398119 Problem Mild persistent asthma without complication J45.30 Active 532390729 Problem Fibromyalgia M79.7 Active 1842782 7 Problem Moderate persistent asthma without complication J4 5.40 Active 365050051 Problem Panic disorder with agoraphobia F40.01 Active 09152034 Problem Panlobular emphysema J43.1 Active 4054372 Problem Migraine without aura and without status migrain osus, not intractable G43.009 Active 311972603 Problem Akathisia G25.71 Active 584387042 Problem Schizoaffective disorder, bipolar type F25.0 Active 35093610 Problem Irritable bowel syndrome with both constipation and diarrh ea K58.2 Active 00201932 Problem Lumbago with sciatica, left side M54.42 Active 242354646 Problem Other chronic pain G89.29 Active 8 9643458 Problem Chronic obstructive pulmonary disease, unspecified J44.9 Active 89525174 Problem Fibrocystic disease of left breast N60.12 Active 92715126 Problem Fibrocystic disease of right breast N60.11 Active 02163793 Problem Irritable bowel syndrome with constipation K58.1 Active 915396577 Problem Arthritis M19.90 Active 6756452 Problem Chronic post-traumatic stress disorder (PTSD) F43. 12 Active 730371844 Problem Bipolar affective disorder, remission status unspecified F31.9 Active 76434064 Problem Lumbago with sciatica, right side M54.41 Active 178867356 Problem Bipolar 1 disorder, depressed, moderate F31.32 Active 00323511 Problem Acute non-recurrent maxillary sinusitis J01.00 Active 11958383 Problem Bipolar 1 disorder, depressed, partial remission F 31.75 Active 46551273 Problem Attention deficit hyperactiv ity disorder (ADHD), predominantly inattentive type F90.0 Active 51651573 Problem Bipolar I disorder with depression F31.9 Active 99844035 ALLERGIES No Information ENCOUNTERS Encounter Location Date Diagnosis [facility] [place] [address] [id number] [address] [place] [address] Nov, [facility] [place] [address] [id number] [address] [place] [address] September, [facility] [place] [address] [id number] [address] [place] [address] September, [facility] [place] [address] [facility] [id number] [address] [place] [address] September, [facility] [place] [address] [id number] [address] [place] [address] September, [facility] [place] [address] [facility] [id number] [address] [place] [phone] September, [facility] [place] [address] [facility] [id number] [address] [place] [address] September, Frequent headaches R51 [facility] [place] [address] [facility] [id number] [address] [place] [address] Aug, [facility] [place] [address] [id number] [address] [place] [address] Aug, Breast mass, right N63.10 [facility] [place] [address] [id number] [address] [place] [address] Aug, Breast lump N63.0 [facility] [place] [address] [facility] [id number] [address] [place] [address] Aug, [facility] [place] [address] [facility] [id number] [address] [place] [phone] 18 Aug, 2017 Bipolar affective disorder, remission status unspecified F31.9 and Diabetes E11.9 [place] [id number] [facility] [id number] [address] [place] [address] Aug, Diabetes E11.9 ; Schizoaffec tive disorder, bipolar type F25.0 ; Pharyngitis due to other organism J02.8 ; Panlobular emphysema J43.1 and Irritable bowel syndrome with both constipation and diarrhea K58.2 [place] [address] [facility] [id number] [address] [place] [phone] Aug, Abnormal mammogram R92.8 [place] [address] [facility] [id number] [address] [place] [address] Aug, [place] [address] [place] [id number] [place] [address] Aug, Bipolar 1 disorder, depresse d, moderate F31.32 ; Panic disorder with agoraphobia F40.01 and Chronic post-traumatic stress disorder (PTSD) F43.12 [place] [address] [facility] [id number] [address] [place] [address] Aug, [place] [address] [facility] [id number] [address] [place] [address] Aug, [place] [address] [facility] [id number] [address] [place] [address] Aug, [place] [address] [facility] [id number] [address] [place] [address] Jul, [place] [address] [facility] [id number] [address] [place] [address] Jul, Mild persistent asthma witho ut complication J45.30 [place] [address] [facility] [id number] [address] [place] [address] Jul, Mild persistent asthma witho ut complication J45.30 [place] [address] [facility] [id number] [address] [place] [address] Jul, Bipolar affective disorder, remission status unspecified F31.9 ; Diabetes E11.9 and Irritable bowel syndrome with constipation K58.1 [facility] [place] [address] [facility] [id number] [address] [place] [address] Jul, [facility] [place] [address] [facility] [id number] [address] [place] [address] Jul, [facility] [place] [address] [facility] [id number] [address] [place] [address] Jul, Frequent headaches R51 [facility] [place] [address] [facility] [id number] [address] [place] [address] Jul, [facility] [place] [address] [facility] [id number] [address] [place] [address] Jul, [facility] [place] [address] [facility] [id number] [address] [place] [address] Jul, [facility] [place] [address] [facility] [id number] [address] [place] [address] Jul, Frequent headaches R51 ; Fib rocystic disease of left breast N60.12 ; Fibrocystic disease of right breast N60.11 and Diabetes E11.9 [facility] [place] [address] [facility] [id number] [address] [place] [address] Jul, [facility] [place] [address] [facility] [id number] [address] [place] [address] Jul, [facility] [place] [address] [facility] [id number] [address] [place] [address] Jun, Exudative tonsillitis J03.90 [facility] [place] [address] [facility] [id number] [address] [place] [address] Jun, [facility] [place] [address] [facility] [id number] [address] [place] [address] Jun, [facility] [place] [address] [place] [id number] [address] [place] [address] 15 Jun, 2017 Mild persistent asthma witho ut complication J45.30 ; Chronic obstructive pulmonary disease, unspecified COPD type J44.9 and Exudative tonsillitis J03.90 [facility] [place] [address] [address] 13 Jun, 2017 Encounter for immunization Z 23 [facility] [place] [address] [address] 12 Jun, 2017 [facility] [place] [address] [address] Jun, [facility] [place] [address] [address] Jun, [facility] [address] [address] 06 Jun, 2017 Tonsillitis J03.90 [facility] [place] [address] [address] 05 Jun, 2017 [facility] [place] [address] [address] 03 Jun, 2017 Acute non-recurrent maxillar y sinusitis J01.00 [facility] [place] [address] [place] [id number] [address] [place] [address] 02 Jun, 2017 [facility] [place] [address] [address] May, [facility] [place] [address] [address] May, [facility] [place] [address] [address] May, GERD (gastroesophageal reflu x disease) K21.9 [facility] [place] [address] [place] [id number] [address] [place] [address] May, Migraine without aura and wi thout status migrainosus, not intractable G43.009 [facility] [place] [address] [place] [id number] [address] [place] [address] May, [facility] [place] [address] [id number] [address] [place] [address] May, [facility] [place] [address] [facility] [id number] [address] [place] [address] May, Panlobular emphysema J43.1 a nd Acute non-recurrent maxillary sinusitis J01.00 [facility] [place] [address] [facility] [id number] [address] [place] [address] May, Bipolar 1 disorder, depresse d, moderate F31.32 ; Panic disorder with agoraphobia F40.01 and Akathisia G25.71 [facility] [place] [address] [facility] [id number] [address] [place] [address] Apr, [facility] [place] [address] [facility] [id number] [address] [place] [address] Apr, [facility] [place] [address] [facility] [id number] [address] [place] [address] Apr, Acute non-recurrent maxillar y sinusitis J01.00 [facility] [place] [address] [facility] [id number] [address] [place] [address] 07 Apr, 2017 Panlobular emphysema J43.1 [facility] [place] [address] [facility] [id number] [address] [place] [address] Apr, [facility] [address] [facility] [id number] [address] [place] [address] 04 Apr, 2017 Exudative tonsillitis J03.90 and Sore throat J02.9 [facility] [place] [address] [facility] [id number] [address] [place] [address] Mar, [facility] [place] [address] [facility] [id number] [address] [place] [address] 15 Mar, 2017 Acute non-recurrent maxillar y sinusitis J01.00 [facility] [place] [address] [facility] [id number] [address] [place] [phone] 13 Mar, 2017 [facility] [place] [address] [facility] [id number] [place] [address] Mar, Panlobular emphysema J43.1 a nd Diabetes E11.9 [facility] [place] [address] [facility] [id number] [address] [place] [address] 06 Mar, 2017 [facility] [address] [facility] [id number] [address] [place] [address] Feb, Wheezing R06.2 and Acute rec urrent pansinusitis J01.41 [facility] [place] [address] [place] [id number] [place] [address] Feb, [facility] [place] [address] [place] [id number] [place] [address] Feb, Acute non-recurrent maxillar y sinusitis J01.00 [place] [address] [address] Feb, Chronic obstructive pulmonar y disease, unspecified J44.9 [facility] [place] [address] [address] Feb, Hypoxemia R09.02 and Chronic obstructive pulmonary disease, unspecified J44.9 [facility] [place] [address] [address] 28 Jan, 2017 Bipolar 1 disorder, depresse d, moderate F31.32 ; Panic disorder with agoraphobia F40.01 ; Chronic post-traumatic stress disorder (PTSD) F43.12 ; Diabetes E11.9 and Moderate persistent asthma without complication J45.40 [facility] [place] [address] [address] Jan, [facility] [place] [address] [place] [id number] [place] [address] 19 Jan, 2017 Acute non-recurrent maxillar y sinusitis J01.00 [facility] [place] [address] [place] [address] Jan, [facility] [place] [address] [id number] [address] [place] [address] Jan, [facility] [place] [address] [id number] [address] [place] [address] Jan, Moderate persistent asthma w ithout complication J45.40 and Hypoxemia R09.02 [facility] [place] [address] [id number] [address] [place] [address] Jan, Moderate persistent asthma w ithout complication J45.40 and Hypoxemia R09.02 [facility] [place] [address] [id number] [address] [place] [phone] Jan, [facility] [place] [address] [id number] [address] [place] [address] Dec, Acute non-recurrent maxillar y sinusitis J01.00 [facility] [place] [address] [id number] [address] [place] [address] Dec, Chronic obstructive pulmonar y disease, unspecified J44.9 [facility] [place] [address] [id number] [address] [place] [address] Dec, [facility] [place] [address] [id number] [address] [place] [address] Dec, Mild persistent asthma witho ut complication J45.30 and Other chronic pain G89.29 [facility] [place] [address] [id number] [address] [place] [address] Nov, [facility] [place] [address] [id number] [address] [place] [address] Nov, Acute non-recurrent maxillar y sinusitis J01.00 [facility] [place] [address] [id number] [address] [place] [address] Nov, [facility] [place] [address] [id number] [address] [place] [address] Nov, [facility] [place] [address] [place] [id number] [address] [place] [address] Oct, [place] [address] [place] [id number] [address] [place] [address] Oct, Bipolar 1 disorder, depresse d, partial remission F31.75 ; Panic disorder with agoraphobia F40.01 and Chronic post-traumatic stress disorder (PTSD) F43.12 [place] [address] [place] [id number] [address] [place] [address] Oct, Acute non-recurrent maxillar y sinusitis J01.00 [place] [address] [place] [id number] [address] [place] [address] Oct, [place] [address] [place] [id number] [address] [place] [address] Oct, Diabetes E11.9 [place] [address] [place] [id number] [address] [place] [address] September, Diabetes E11.9 [place] [address] [place] [id number] [address] [place] [address] September, Diabetes E11.9 and Sinus tac hycardia R00.0 [place] [address] [place] [id number] [address] [place] [address] September, [place] [address] [place] [id number] [address] [place] [address] September, [place] [address] [place] [id number] [address] [place] [address] Aug, Diabetes E11.9 and Lumbago w ith sciatica, right side M54.41 [place] [address] [place] [id number] [address] [place] [address] Aug, [place] [address] [place] [id number] [address] [place] [address] Jul, Bipolar 1 disorder, depresse d, moderate F31.32 ; Panic disorder with agoraphobia F40.01 and Chronic post-traumatic stress disorder (PTSD) F43.12 [facility] [place] [address] [id number] [address] [place] [address] Jul, Sore throat J02.9 [facility] [place] [address] [id number] [address] [place] [address] 16 Jul, 2016 [facility] [place] [address] [id number] [address] [place] [address] Jul, [facility] [place] [address] [id number] [address] [place] [address] Jul, [facility] [place] [address] [id number] [address] [place] [address] Jul, [facility] [place] [address] [facility] [id number] [address] [place] [address] Jul, Sore throat J02.9 and Pharyn gitis, unspecified etiology J02.9 [facility] [place] [address] [id number] [address] [place] [address] 27 Jun, 2016 [facility] [place] [address] [id number] [address] [place] [address] 23 Jun, 2016 Diabetes E11.9 [facility] [place] [address] [facility] [id number] [address] [place] [phone] 20 Jun, 2016 [facility] [place] [address] [id number] [address] [place] [address] Jun, [facility] [place] [address] [id number] [address] [place] [address] Jun, [facility] [place] [address] [facility] [id number] [address] [place] [address] Jun, [facility] [place] [address] [id number] [address] [place] [address] 16 Jun, 2016 [facility] [place] [address] [facility] [id number] [address] [place] [id number] 15 Jun, 2016 [facility] [place] [address] [id number] [address] [place] [address] 10 Jun, 2016 [facility] [place] [address] [id number] [address] [place] [address] Jun, [facility] [place] [address] [facility] [id number] [address] [place] [address] May, Diabetes E11.9 ; Other chron ic pain G89.29 ; Acute recurrent maxillary sinusitis J01.01 ; Bipolar I disorder with depression F31.9 and Anxiety disorder, unspecified F41.9 [place] [address] [id number] [address] [place] [address] May, [place] [address] [facility] [id number] [address] [place] [address] May, Diabetes E11.9 ; Bipolar I d isorder with depression F31.9 ; Anxiety disorder, unspecified F41.9 ; Other chronic pain G89.29 and Acute recurrent maxillary sinusitis J01.01 [place] [id number] [facility] [id number] [address] [place] [address] May, [place] [address] [id number] [address] [place] [address] May, Attention deficit hyperactiv ity disorder (ADHD), predominantly inattentive type F90.0 [place] [address] [facility] [id number] [address] [place] [address] May, [facility] [place] [address] [facility] [id number] [address] [place] [address] Apr, Attention deficit hyperactiv ity disorder (ADHD), predominantly inattentive type F90.0 and Non-seasonal allergic rhinitis due to other allergic trigger J30.89 [facility] [place] [address] [facility] [id number] [address] [place] [address] Apr, Bipolar 1 disorder, depresse d, moderate F31.32 ; Panic disorder with agoraphobia F40.01 and Chronic post-traumatic stress disorder (PTSD) F43.12 [place] [id number] [id number] [address] [place] [address] 06 Apr, 2016 Dental examination Z01.20 [facility] [place] [address] [id number] [address] [place] [address] Mar, [place] [address] [facility] [id number] [address] [place] [address] Mar, [place] [address] [id number] [address] [place] [address] Mar, Bipolar I disorder with depr ession F31.9 and Anxiety disorder, unspecified F41.9 [place] [address] [facility] [id number] [address] [place] [address] 08 Mar, 2016 Panic disorder with agorapho syd F40.01 ; Bipolar 1 disorder, depressed, moderate F31.32 and Chronic post-traumatic stress disorder (PTSD) F43.12 [place] [address] [facility] [id number] [address] [place] [address] Mar, [place] [address] [id number] [address] [place] [address] Mar, Dental caries K02.9 [place] [address] [facility] [id number] [address] [place] [address] 24 Feb, 2016 Lumbago with sciatica, left side M54.42 ; Lumbago with sciatica, right side M54.41 and Other chronic pain G89.29 [place] [address] [id number] [address] [place] [phone] 17 Feb, 2016 [place] [address] [id number] [address] [place] [phone] 14 Feb, 2016 [place] [address] [facility] [id number] [address] [place] [phone] 13 Feb, 2016 Bipolar I disorder with depr ession F31.9 ; PTSD (post-traumatic stress disorder) F43.10 and Mood disorder F39 [place] [address] [place] [id number] [address] [place] [phone] 13 Feb, 2016 [facility] [place] [address] [place] [id number] [place] [phone] Feb, Dental examination Z01.20 [facility] [place] [address] [facility] [id number] [address] [place] [phone] 07 Feb, 2016 [facility] [address] [place] [id number] [address] [place] [phone] 03 Feb, 2016 Acute bronchitis, unspecifie d organism J20.9 [facility] [place] [address] [place] [id number] [place] [phone] 26 Jan, 2016 Mood disorder F39 ; Migraine without aura and without status migrainosus, not intractable G43.009 ; Irritable bowel syndrome, unspecified type K58.9 ; Diabetes E11.9 and Encounter for immunization Z23 [place] [address] [phone] 15 Jan, 2016 [facility] [place] [address] [id number] 06 Jan, 2016 [place] [address] [phone] Jan, [facility] [place] [address] [place] [id number] [address] [place] [phone] Jan, [place] [address] [phone] Jan, [facility] [place] [address] [place] [id number] [address] [place] [phone] Dec, Bipolar I disorder with depr ession F31.9 ; PTSD (post-traumatic stress disorder) F43.10 and Panic disorder with agoraphobia F40.01 [facility] [place] [address] [place] [id number] [address] [place] [phone] Dec, Chronic obstructive pulmonar y disease, unspecified COPD type J44.9 ; Tremor R25.1 and Anxiety F41.9 [facility] [place] [address] [id number] [address] [place] [phone] Dec, [facility] [place] [address] [id number] [address] [place] [phone] Nov, Tremors of nervous system R2 5.1 and Cramping of feet R25.2 [facility] [place] [address] [id number] [address] [place] [phone] Nov, [facility] [place] [address] [id number] [address] [place] [phone] Nov, [facility] [place] [address] [id number] [address] [place] [phone] Oct, Chronic obstructive pulmonar y disease, unspecified J44.9 [facility] [place] [address] [facility] [id number] [address] [place] [phone] Oct, [place] [address] [address] [facility] [id number] [address] [place] [address] Oct, Tremor R25.1 [facility], [place] [address] [id number] [address] [place] [address] Oct, Bipolar I disorder with depr ession F31.9 ; Diabetes E11.9 ; PTSD (post-traumatic stress disorder) F43.10 and Panic disorder with agoraphobia F40.01 [facility], [place] [address] [facility] [id number] [address] [place] [address] Oct, Mood disorder F39 [facility] [place] [address] [id number] [address] [place] [address] September, [facility], [place] [address] [id number] [address] [place] [address] September, Diabetes E11.9 ; Bipolar I d isorder with depression F31.9 ; PTSD (post-traumatic stress disorder) F43.10 and Panic disorder with agoraphobia F40.01 [facility], [place] [address] [facility] [id number] [address] [place] [address] September, Mood disorder F39 ; Schizoaf fective disorder, unspecified type F25.9 ; Arthritis M19.90 ; Tremor R25.1 ; Acute non-recurrent frontal sinusitis J01.10 and Blood in stool K92.1 [facility], [place] [address] [id number] [address] [place] [address] September, [facility], [place] [address] [facility] [id number] [address] [place] [address] September, Chronic obstructive pulmonar y disease, unspecified J44.9 [facility], [place] [address] [id number] [address] [place] [address] September, Diabetes E11.9 [place] [id number] [id number] [address] [place] [address] Aug, Other bipolar disorder F31.8 9 and Anxiety disorder, unspecified F41.9 [place] [id number] [id number] [address] [place] [address] Aug, [facility], [place] [address] [id number] [address] [place] [address] Aug, Diabetes E11.9 [facility], [place] [address] [id number] [address] [place] [phone] 18 Aug, 2015 [facility], [place] [address] [id number] [address] [place] [address] 14 Aug, 2015 Diabetes E11.9 ; Fatigue R53 .83 and Dizziness R42 [facility], [place] [address] [id number] [address] [place] [address] 13 Aug, 2015 Other bipolar disorder F31.8 9 [facility], [place] [address] [id number] [address] [place] [address] 07 Aug, 2015 Generalized anxiety disorder F41.1 [facility], [place] [address] [id number] [address] [place] [address] Aug, Other bipolar disorder F31.8 9 and Anxiety disorder, unspecified F41.9 [facility], [place] [address] [id number] [address] [place] [address] Aug, [facility], [place] [address] [facility] [id number] [address] [place] [phone] Jul, [facility], [place] [address] [facility] [id number] [address] [place] [address] Jul, [facility], [place] [address] [facility] [id number] [address] [place] [address] Jul, Bronchitis J40 [facility], [place] [address] [facility] [id number] [address] [place] [address] Jul, Anxiety disorder F41.9 [facility], [place] [address] [facility] [id number] [address] [place] [address] Jul, Other bipolar disorder F31.8 9 and Anxiety disorder, unspecified F41.9 [facility], [place] [address] [facility] [id number] [address] [place] [address] Jul, Other bipolar disorder F31.8 9 and Fibromyalgia M79.7 [facility], [place] [address] [facility] [id number] [address] [place] [address] Jul, [facility], [place] [address] [facility] [id number] [address] [place] [address] Jul, [facility], [place] [address] [facility] [id number] [address] [place] [address] Jul, [facility], [place] [address] [facility] [id number] [address] [place] [address] Jul, Other bipolar disorder F31.8 9 and Anxiety disorder, unspecified F41.9 [facility], [place] [address] [facility] [id number] [address] [place] [phone] Jun, GERD (gastroesophageal reflu x disease) K21.9 [facility], [place] [address] [facility] [id number] [address] [place] [address] Jun, [facility], [place] [address] [address] 14 May, 2015 [facility], [place] [address] [address] May, Diabetes E11.9 ; Back pain M 54.9 ; GERD (gastroesophageal reflux disease) K21.9 ; Hypertension I10 and Peripheral neuropathy G62.9 [facility], [place] [address] [address] Mar, [facility], [place] [address] [address] Mar, [facility], [place] [address] [address] Mar, Acute sinusitis J01.90 and O titis media, left H66.92 [facility], [place] [address] [address] Feb, [facility], [place] [address] [address] Feb, [facility], [place] [address] [address] Feb, [facility], [place] [address] [address] Feb, [facility], [place] [address] [address] Jan, [facility], [place] [address] [address] Jan, Diabetes 250.00 and Back higinio n 724.5 [facility], [place] [address] [address] Jan, [facility], [place] [address] [address] Dec, Diabetes 250.00 ; Benign ess ential hypertension 401.1 and Allergic rhinitis 477.9 [facility], [place] [address] [place] [id number] [place] [address] Dec, [facility], [place] [address] [id number] [address] [place] [address] Dec, [facility], [place] [address] [id number] [address] [place] [address] Dec, Psychosis 298.9 [facility], [place] [address] [facility] [id number] [address] [place] [address] Dec, Medication side effect 995.2 0 and Generalized anxiety disorder 300.02 [facility], [place] [address] [id number] [address] [place] [address] Dec, Acquired cognitive dysfuncti on 294.9 [facility], [place] [address] [facility] [id number] [address] [place] [address] Dec, [facility], [place] [address] [facility] [id number] [address] [place] [phone] Dec, Unspecified myalgia and myos itis 729.1 and Generalized anxiety disorder 300.02 [facility], [place] [address] [facility] [id number] [address] [place] [address] Nov, [facility], [place] [address] [facility] [id number] [address] [place] [address] Nov, [facility], [place] [address] [facility] [id number] [address] [place] [address] Nov, [facility], [place] [address] [facility] [id number] [address] [place] [address] Nov, Upper respiratory infection 465.9 and Chronic airway obstruction, not elsewhere classified 496 [facility], [place] [address] [facility] [id number] [address] [place] [address] 14 Nov, 2014 Hyponatremia 276.1 [facility], [place] [address] [facility] [id number] [address] [place] [address] Oct, [facility], [place] [address] [facility] [id number] [address] [place] [address] Oct, [facility] [address] [facility] [id number] [address] [place] [address] Oct, [facility] [address] [facility] [id number] [address] [place] [address] Oct, [facility] [address] [facility] [id number] [address] [place] [phone] 04 Oct, 2014 Hyponatremia 276.1 [facility] [address] [id number] [address] [place] [address] 03 Oct, 2014 [facility] [address] [facility] [id number] [address] [place] [address] Oct, [facility] [address] [facility] [id number] [address] [place] [address] Oct, Generalized anxiety disorder 300.02 [facility] [address] [facility] [id number] [address] [place] [address] Oct, Generalized anxiety disorder 300.02 and Diabetes 250.00 [facility] [address] [facility] [id number] [address] [place] [phone] Aug, [facility] [address] [facility] [id number] [address] [place] [address] Aug, [facility] [address] [facility] [id number] [address] [place] [address] Jul, [facility] [address] [facility] [id number] [address] [place] [address] Jul, [facility] [address] [facility] [id number] [address] [place] [address] Jun, [facility] [address] [id number] [address] [place] [address] Jun, [facility] [address] [facility] [id number] [address] [place] [address] Jun, [facility] [address] [facility] [id number] [address] [place] [phone] 06 Jun, 2013 [facility] [address] [id number] [address] [place] [address], [place] [address] Jun, [facility] [address] [id number] [address] [place] [address], [place] [address] May, [facility] [address] [id number] [address] [place] [address], [place] [address] May, [facility] [address] [id number] [address] [place] [address], [place] [address] Apr, [facility] [address] [id number] [address] [place] [address], [place] [address] Apr, [facility] [address] [id number] [address] [place] [address], [place] [address] Apr, [facility] [address] [id number] [address] [place] [address], [place] [address] Apr, [facility] [address] [id number] [address] [place] [address], [place] [address] Apr, [facility] [address] [id number] [address] [place] [address], [place] [address] Apr, [facility] [address] [id number] [address] [place] [address], [place] [address] Apr, [facility] [address] [id number] [address] [place] [address], [place] [address] Apr, [facility] [address] [id number] [address] [place] [address] Feb, [facility] [address] [id number] [address] [place] [address], [place] [address] Feb, [facility] [address] [id number] [address] [place] [address], [place] [address] Jan, [facility] [address] [id number] [address] [place] [phone] 06 Jan, 2013 [facility] [address] [id number] [address] [place] [address], [place] [address] Dec, [facility] [address] [id number] [address] [place] [address], [place] [address] Dec, [facility] [address] [id number] [address] [place] [address], [place] [address] Dec, [facility] [address] [id number] [address] [place] [address], [place] [address] Nov, [facility] [address] [id number] [address] [place] [address], [place] [address] Nov, [facility] [address] [id number] [address] [place] [address], [place] [address] Nov, [facility] [address] [id number] [address] [place] [address], [place] [address] Oct, [facility] [address] [id number] [address] [place] [address], [place] [address] Oct, [facility] [address] [id number] [address] [place] [address], [place] [address] Oct, [facility] [address] [id number] [address] [place] [address], [place] [address] September, [facility] [address] [id number] [address] [place] [address], [place] [address] September, [facility] [address] [id number] [address] [place] [address], [place] [address] September, [facility] [address] [id number] [address] [place] [address], [place] [address] Aug, [facility] [address] [id number] [address] [place] [address], [place] [address] Aug, [facility] [address] [id number] [address] [place] [address], [place] [address] Aug, [facility] [address] [id number] [address] [place] [address], [place] [address] 16 Aug, 2011 [facility] [address] [id number] [address] [place] [address], [place] [address] Jul, [facility] [address] [id number] [address] [place] [address], [place] [address] Jun, [facility] [address] [id number] [address] [place] [address], [place] [address] 14 Jun, 2011 [facility] [address] [id number] [address] [place] [address], [place] [address] 13 Jun, 2011 [facility] [address] [id number] [address] [place] [address], [place] [address] 07 Jun, 2011 [facility] [address] [id number] [address] [place] [address], [place] [address] 03 Jun, 2011 [facility] [address] [id number] [address] [place] [address], [place] [address] May, [facility] [address] [id number] [address] [place] [address], [place] [address] May, [facility] [address] [id number] [address] [place] [address], [place] [address] May, [facility] [address] [id number] [address] [place] [address], [place] [address] May, [facility] [address] [id number] [address] [place] [address], [place] [address] Apr, [facility] [address] [id number] [address] [place] [address], [place] [address] Apr, [facility] [address] [id number] [address] [place] [address], [place] [address] 05 Apr, 2011 [facility] [address] [id number] [address] [place] [address], [place] [address] Mar, [facility] [address] [id number] [address] [place] [address], [place] [address] Mar, [facility] [address] [id number] [address] [place] [address] Mar, [facility] [place] [address] [id number] [address] [place] [address] Feb, [facility] [place] [address] [id number] [address] [place] [address] Feb, [facility] [place] [address] [id number] [address] [place] [address] Feb, [facility] [place] [address] [id number] [address] [place] [address] Nov, [facility] [place] [address] [id number] [address] [place] [address] September, [facility] [place] [address] [id number] [address] [place] [address] Aug, [facility] [place] [address] [id number] [address] [place] [address] Jul, [facility] [place] [address] [id number] [address] [place] [address] May, [facility] [place] [address] [id number] [address] [place] [address] Apr, [facility] [place] [address] [id number] [address] [place] [address] Apr, [facility] [place] [address] [id number] [address] [place] [address] Apr, [facility] [place] [address] [id number] [address] [place] [address] Apr, [facility] [place] [address] [id number] [address] [place] [address] Apr, IMMUNIZATIONS No Known Immunizations SOCIAL HISTORY Never Assessed REASON FOR VISIT [facility]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
--- OUTSIDE RECORDS SUMMARY | 2019-07-17 11:17 | XMS REPORT ---
Author Author Sujey GANDHI Organization [facility] Address [address] [place] [address] Care Team Providers Care Quality Cloth Tester Name Role Phone WHIT GANDHI Unavailable PROBLEMS Type Condition ICD9-CM Code [id number] Code Onset Dates Condition S tatus SNOMED Code Problem Back pain M54.9 Active 717143148 Problem GERD (gastroesophageal reflux disease) K21.9 Active 217014590 Problem Diabetes E11.9 Active 06181116 Problem Hypertension I10 Active 5281199 3 Problem Anxiety disorder, unspecified F41.9 Active 041903965 Problem Other bipolar disorder F31.89 Active 91661081 Problem Mild persistent asthma without complication J45.30 Active 362109776 Problem Fibromyalgia M79.7 Active 1515109 7 Problem Moderate persistent asthma without complication J4 5.40 Active 680244055 Problem Panic disorder with agoraphobia F40.01 Active 95422722 Problem Panlobular emphysema J43.1 Active 3171700 Problem Migraine without aura and without status migrain osus, not intractable G43.009 Active 420398189 Problem Akathisia G25.71 Active 433521751 Problem Schizoaffective disorder, bipolar type F25.0 Active 49107271 Problem Irritable bowel syndrome with both constipation and diarrh ea K58.2 Active 82621916 Problem Lumbago with sciatica, left side M54.42 Active 742513708 Problem Other chronic pain G89.29 Active 8 0676706 Problem Chronic obstructive pulmonary disease, unspecified J44.9 Active 36783222 Problem Fibrocystic disease of left breast N60.12 Active 59105546 Problem Fibrocystic disease of right breast N60.11 Active 12501019 Problem Irritable bowel syndrome with constipation K58.1 Active 079782831 Problem Arthritis M19.90 Active 1613727 Problem Chronic post-traumatic stress disorder (PTSD) F43. 12 Active 573721362 Problem Bipolar affective disorder, remission status unspecified F31.9 Active 59016568 Problem Lumbago with sciatica, right side M54.41 Active 031142001 Problem Bipolar 1 disorder, depressed, moderate F31.32 Active 24635673 Problem Acute non-recurrent maxillary sinusitis J01.00 Active 12343462 Problem Bipolar 1 disorder, depressed, partial remission F 31.75 Active 71599243 Problem Attention deficit hyperactiv ity disorder (ADHD), predominantly inattentive type F90.0 Active 46315881 Problem Bipolar I disorder with depression F31.9 Active 94694955 ALLERGIES Substance Reaction Event Type Date Status Penicillin V Potassium Unknown Drug Allergy Jan, Activ e Effexor anaphylaxis Drug Allergy Jan, Active Darvocet-N 50 Unknown Drug Allergy Jan, Active Cefdinir Swelling Drug Allergy Jan, Active Benadryl vomiting/swelling Drug Allergy Jan, Active ENCOUNTERS Encounter Location Date Diagnosis [place] [address] [address] [facility] [id number] [address] [place] [address] Nov, [place] [address] [address] [place] [id number] [address] [place] [address] September, [place] [address] [facility] [id number] [address] [place] [address] Aug, [place] [address] [facility] [id number] [address] [place] [address] Aug, Breast mass, right N63.10 [facility] [address] [facility] [id number] [address] [place] [address] Aug, Breast lump N63.0 [facility] [address] [facility] [id number] [address] [place] [address] Aug, [facility] [address] [facility] [id number] [address] [place] [address] Aug, Bipolar affective disorder, remission status unspecified F31.9 and Diabetes E11.9 [facility] [address] [facility] [id number] [address] [place] [address] Aug, Diabetes E11.9 ; Schizoaffec tive disorder, bipolar type F25.0 ; Pharyngitis due to other organism J02.8 ; Panlobular emphysema J43.1 and Irritable bowel syndrome with both constipation and diarrhea K58.2 [facility] [address] [id number] [address] [place] [address] Aug, Abnormal mammogram R92.8 [facility] [address] [id number] [address] [place] [address] Aug, [facility] [address] [id number] [address] [place] [address] Aug, Bipolar 1 disorder, depresse d, moderate F31.32 ; Panic disorder with agoraphobia F40.01 and Chronic post-traumatic stress disorder (PTSD) F43.12 [place] [address] [id number] [address] [place] [address] Aug, [place] [address] [id number] [address] [place] [address] Aug, [place] [address] [id number] [address] [place] [address] Aug, [place] [address] [id number] [address] [place] [address] Jul, [place] [address] [id number] [address] [place] [address] Jul, Mild persistent asthma witho ut complication J45.30 [place] [address] [id number] [address] [place] [address] Jul, Mild persistent asthma witho ut complication J45.30 [place] [address] [id number] [address] [place] [address] 15 Jul, 2017 Bipolar affective disorder, remission status unspecified F31.9 ; Diabetes E11.9 and Irritable bowel syndrome with constipation K58.1 [place] [id number] [id number] [address] [place] [address] 13 Jul, 2017 [facility] [address] [id number] [address] [place] [address] Jul, [facility] [address] [id number] [address] [place] [address] Jul, Frequent headaches R51 [facility] [address] [id number] [address] [place] [address] Jul, [facility] [address] [facility] [id number] [address] [place] [address] Jul, [facility] [address] [id number] [address] [place] [address] Jul, [facility] [address] [id number] [address] [place] [address] Jul, Frequent headaches R51 ; Fib rocystic disease of left breast N60.12 ; Fibrocystic disease of right breast N60.11 and Diabetes E11.9 [place] [address] [facility] [id number] [address] [place] [address] Jul, [place] [address] [facility] [id number] [address] [place] [address] Jul, [place] [address] [address] Jun, Exudative tonsillitis J03.90 [place] [address] [place] [id number] [address] [place] [address] Jun, [place] [address] [place] [id number] [address] [place] [address] Jun, [place] [address] [facility] [id number] [address] [place] [address] 15 Jun, 2017 Mild persistent asthma witho ut complication J45.30 ; Chronic obstructive pulmonary disease, unspecified COPD type J44.9 and Exudative tonsillitis J03.90 [place] [address] [facility] [id number] [address] [place] [address] 13 Jun, 2017 Encounter for immunization Z 23 [place] [address] [place] [id number] [place] [address] Jun, [facility] [address] [facility] [id number] [address] [place] [address] Jun, [facility] [address] [facility] [id number] [address] [place] [address] Jun, [facility] [address] [facility] [id number] [address] [place] [address] Jun, Tonsillitis J03.90 [facility] [address] [facility] [id number] [address] [place] [address] Jun, [facility] [address] [facility] [id number] [address] [place] [address] Jun, Acute non-recurrent maxillar y sinusitis J01.00 [facility] [address] [facility] [id number] [address] [place] [address] Jun, [facility] [address] [facility] [id number] [address] [place] [address] May, [facility] [address] [facility] [id number] [address] [place] [address] May, [facility] [address] [facility] [id number] [address] [place] [address] May, GERD (gastroesophageal reflu x disease) K21.9 [facility] [address] [facility] [id number] [address] [place] [address] May, Migraine without aura and wi thout status migrainosus, not intractable G43.009 [facility] [address] [facility] [id number] [address] [place] [address] May, [facility] [address] [facility] [id number] [address] [place] [address] May, [facility] [address] [facility] [id number] [address] [place] [address] May, Panlobular emphysema J43.1 a nd Acute non-recurrent maxillary sinusitis J01.00 [facility] [address] [facility] [id number] [address] [place] [address] May, Bipolar 1 disorder, depresse d, moderate F31.32 ; Panic disorder with agoraphobia F40.01 and Akathisia G25.71 [facility] [address] [facility] [id number] [address] [place] [address] Apr, [facility] [address] [facility] [id number] [address] [place] [address] Apr, [place] [address] [facility] [id number] [address] [place] [address] Apr, Acute non-recurrent maxillar y sinusitis J01.00 [place] [address] [facility] [id number] [address] [place] [address] Apr, Panlobular emphysema J43.1 [facility] [address] [facility] [id number] [address] [place] [address] Apr, [facility] [address] [facility] [id number] [address] [place] [address] 04 Apr, 2017 Sore throat J02.9 and Exudat minoo tonsillitis J03.90 [place] [address] [facility] [id number] [address] [place] [address] 17 Mar, 2017 [facility] [address] [facility] [id number] [address] [place] [address] 15 Mar, 2017 Acute non-recurrent maxillar y sinusitis J01.00 [facility] [address] [facility] [id number] [address] [place] [address] Mar, [place] [address] [place] [id number] [address] [place] [address] 09 Mar, 2017 Panlobular emphysema J43.1 a nd Diabetes E11.9 [facility] [address] [place] [id number] [address] [place] [address] Mar, [facility] [address] [facility] [id number] [address] [place] [address] Feb, Wheezing R06.2 and Acute rec urrent pansinusitis J01.41 [facility] [address] [facility] [id number] [address] [place] [address] Feb, [facility] [address] [facility] [id number] [address] [place] [address] Feb, Acute non-recurrent maxillar y sinusitis J01.00 [facility] [address] [facility] [id number] [address] [place] [address] Feb, Chronic obstructive pulmonar y disease, unspecified J44.9 [facility] [address] [facility] [id number] [address] [place] [address] Feb, Hypoxemia R09.02 and Chronic obstructive pulmonary disease, unspecified J44.9 [facility] [address] [facility] [id number] [address] [place] [address] 28 Jan, 2017 Bipolar 1 disorder, depresse d, moderate F31.32 ; Panic disorder with agoraphobia F40.01 ; Chronic post-traumatic stress disorder (PTSD) F43.12 ; Diabetes E11.9 and Moderate persistent asthma without complication J45.40 [facility] [address] [facility] [id number] [address] [place] [address] Jan, [facility] [address] [facility] [id number] [address] [place] [address] 19 Jan, 2017 Acute non-recurrent maxillar y sinusitis J01.00 [facility] [address] [facility] [id number] [address] [place] [address] Jan, [facility] [address] [facility] [id number] [address] [place] [address] Jan, [facility] [address] [facility] [id number] [address] [place] [address] Jan, Moderate persistent asthma w [facility] complication J45.40 and Hypoxemia R09.02 [facility] [address] [id number] [address] [place] [address] Jan, Moderate persistent asthma w [facility] complication J45.40 and Hypoxemia R09.02 [facility] [address] [id number] [address] [place] [address] Jan, [facility] [address] [id number] [address] [place] [address] Dec, Acute non-recurrent maxillar y sinusitis J01.00 [facility] [address] [id number] [address] [place] [address] Dec, Chronic obstructive pulmonar y disease, unspecified J44.9 [facility] [address] [id number] [address] [place] [address] Dec, [facility] [address] [id number] [address] [place] [address] Dec, Mild persistent asthma witho oh complication J45.30 and Other chronic pain G89.29 [facility] [address] [id number] [address] [place] [address] Nov, [facility] [address] [id number] [address] [place] [address] Nov, Acute non-recurrent maxillar y sinusitis J01.00 [facility] [address] [id number] [address] [place] [address] Nov, [facility] [address] [id number] [address] [place] [address] Nov, [facility] [address] [facility] [id number] [address] [place] [address] Oct, [facility] [address] [facility] [id number] [address] [place] [address] Oct, Bipolar 1 disorder, depresse d, partial remission F31.75 ; Panic disorder with agoraphobia F40.01 and Chronic post-traumatic stress disorder (PTSD) F43.12 [facility] [address] [id number] [address] [place] [address] 29 Oct, 2016 Acute non-recurrent maxillar y sinusitis J01.00 [facility] [address] [id number] [address] [place] [address] Oct, [facility] [address] [facility] [id number] [address] [place] [address] Oct, Diabetes E11.9 [facility] [address] [id number] [address] [place] [address] September, Diabetes E11.9 [facility] [address] [facility] [id number] [address] [place] [address] September, Diabetes E11.9 and Sinus tac hycardia R00.0 [facility] [address] [facility] [id number] [address] [place] [address] September, [facility] [address] [facility] [id number] [address] [place] [address] September, [facility] [address] [facility] [id number] [address] [place] [address] Aug, Diabetes E11.9 and Lumbago w ith sciatica, right side M54.41 [facility] [address] [facility] [id number] [address] [place] [address] Aug, [facility] [address] [facility] [id number] [address] [place] [address] Jul, Bipolar 1 disorder, depresse d, moderate F31.32 ; Panic disorder with agoraphobia F40.01 and Chronic post-traumatic stress disorder (PTSD) F43.12 [facility] [address] [facility] [id number] [address] [place] [address] Jul, Sore throat J02.9 [facility] [address] [facility] [id number] [address] [place] [address] Jul, [facility] [address] [facility] [id number] [address] [place] [address] Jul, [facility] [address] [id number] [address] [place] [address] Jul, [facility] [address] [id number] [address] [place] [address] Jul, [facility] [address] [id number] [address] [place] [address] Jul, Sore throat J02.9 and Pharyn gitis, unspecified etiology J02.9 [facility] [address] [id number] [address] [place] [address] Jun, [facility] [address] [id number] [address] [place] [address] Jun, Diabetes E11.9 [facility] [address] [id number] [address] [place] [address] Jun, [facility] [address] [id number] [address] [place] [address] Jun, [facility] [address] [id number] [address] [place] [address] Jun, [facility] [address] [id number] [address] [place] [address] Jun, [facility] [address] [id number] [address] [place] [address] Jun, [facility] [address] [id number] [address] [place] [address] 15 Jun, 2016 [facility] [address] [id number] [address] [place] [address] Jun, [facility] [address] [id number] [address] [place] [address] Jun, [facility] [address] [id number] [address] [place] [address] May, Diabetes E11.9 ; Bipolar I d isorder with depression F31.9 ; Other chronic pain G89.29 ; Acute recurrent maxillary sinusitis J01.01 and Anxiety disorder, unspecified F41.9 [place] [address] [facility] [id number] [address] [place] [address] May, [place] [address] [id number] [address] [place] [address] May, Diabetes E11.9 ; Bipolar I d isorder with depression F31.9 ; Anxiety disorder, unspecified F41.9 ; Other chronic pain G89.29 and Acute recurrent maxillary sinusitis J01.01 [place] [address] [facility] [id number] [address] [place] [address] May, [place] [address] [place] [id number] [address] [place] [address] May, Attention deficit hyperactiv ity disorder (ADHD), predominantly inattentive type F90.0 [place] [address] [place] [id number] [address] [place] [address] May, [place] [address] [place] [id number] [place] [address] Apr, Attention deficit hyperactiv ity disorder (ADHD), predominantly inattentive type F90.0 and Non-seasonal allergic rhinitis due to other allergic trigger J30.89 [place] [address] [place] [id number] [address] [place] [address] Apr, Bipolar 1 disorder, depresse d, moderate F31.32 ; Panic disorder with agoraphobia F40.01 and Chronic post-traumatic stress disorder (PTSD) F43.12 [place] [address] [place] [id number] [address] [place] [address] Apr, Dental examination Z01.20 [place] [address] [facility] [id number] [address] [place] [id number] Mar, [place] [address] [place] [id number] [place] [phone] Mar, [facility] [address] [id number] [address] [place] [phone] Mar, Bipolar I disorder with depr ession F31.9 and Anxiety disorder, unspecified F41.9 [facility] [address] [id number] [address] [place] [id number] 08 Mar, 2016 Panic disorder with agorapho syd F40.01 ; Bipolar 1 disorder, depressed, moderate F31.32 and Chronic post-traumatic stress disorder (PTSD) F43.12 [facility] [address] [id number] [address] [place] [id number] Mar, [facility] [address] [id number] [address] [place] [phone] Mar, Dental caries K02.9 [facility] [address] [id number] [address] [place] [id number] 24 Feb, 2016 Lumbago with sciatica, left side M54.42 ; Lumbago with sciatica, right side M54.41 and Other chronic pain G89.29 [facility] [address] [id number] [address] [place] [id number] Feb, [facility] [address] [id number] [address] [place] [id number] 14 Feb, 2016 [facility] [address] [id number] [address] [place] [phone] 13 Feb, 2016 Bipolar I disorder with depr ession F31.9 ; PTSD (post-traumatic stress disorder) F43.10 and Mood disorder F39 [facility] [address] [id number] [address] [place] [phone] Feb, [facility] [address] [id number] [address] [place] [phone] 11 Feb, 2016 Dental examination Z01.20 [facility] [address] [id number] [address] [place] [address] 07 Feb, [address] [facility] [address] [facility] [id number] [address] [place] [address] Feb, Acute bronchitis, unspecifie d organism J20.9 [facility] [address] [facility] [id number] [address] [place] [address] Jan, Mood disorder F39 ; Migraine without aura and without status migrainosus, not intractable G43.009 ; Irritable bowel syndrome, unspecified type K58.9 ; Diabetes E11.9 and Encounter for immunization Z23 [facility] [address] [facility] [id number] [address] [place] [address] Jan, [facility] [address] [address] Jan, [facility] [address] [address] Jan, [facility] [address] [address] Jan, [facility] [address] [place] [id number] [address] [place] [address] Jan, [facility] [address] [address] Dec, Bipolar I disorder with depr ession F31.9 ; PTSD (post-traumatic stress disorder) F43.10 and Panic disorder with agoraphobia F40.01 [facility] [id number] [place] [address] Dec, Chronic obstructive pulmonar y disease, unspecified COPD type J44.9 ; Tremor R25.1 and Anxiety F41.9 [facility] [address] [address] Dec, [place] [address] [address] Nov, Tremors of nervous system R2 5.1 and Cramping of feet R25.2 [place] [address] [place] [id number] [address] [place] [address] Nov, [facility] [address] [facility] [id number] [address] [place] [address] Nov, [facility] [address] [facility] [id number] [address] [place] [address] Oct, Chronic obstructive pulmonar y disease, unspecified J44.9 [facility] [address] [facility] [id number] [address] [place] [address] Oct, [facility] [address] [facility] [id number] [address] [place] [address] Oct, Tremor R25.1 [place] [address] [facility] [id number] [address] [place] [address] Oct, Bipolar I disorder with depr ession F31.9 ; Diabetes E11.9 ; PTSD (post-traumatic stress disorder) F43.10 and Panic disorder with agoraphobia F40.01 [place] [id number] [facility] [id number] [address] [place] [address] Oct, Mood disorder F39 [place] [address] [facility] [id number] [address] [place] [address] September, [place] [address] [facility] [id number] [address] [place] [address] September, Diabetes E11.9 ; Bipolar I d isorder with depression F31.9 ; PTSD (post-traumatic stress disorder) F43.10 and Panic disorder with agoraphobia F40.01 [facility] [address] [facility] [id number] [address] [place] [address] September, Mood disorder F39 ; Schizoaf fective disorder, unspecified type F25.9 ; Arthritis M19.90 ; Tremor R25.1 ; Acute non-recurrent frontal sinusitis J01.10 and Blood in stool K92.1 [facility] [address] [facility] [id number] [address] [place] [address] September, [facility] [address] [id number] [address] [place] [address] September, Chronic obstructive pulmonar y disease, unspecified J44.9 [facility] [address] [id number] [address] [place] [address] September, Diabetes E11.9 [facility] [address] [id number] [address] [place] [address] Aug, Other bipolar disorder F31.8 9 and Anxiety disorder, unspecified F41.9 [facility] [address] [id number] [address] [place] [address] Aug, [facility] [address] [id number] [address] [place] [address] Aug, Diabetes E11.9 [facility] [address] [facility] [id number] [address] [place] [address] Aug, [facility] [address] [id number] [address] [place] [address] 14 Aug, 2015 Diabetes E11.9 ; Fatigue R53 .83 and Dizziness R42 [facility] [address] [id number] [address] [place] [address] Aug, Other bipolar disorder F31.8 9 [facility] [address] [facility] [id number] [address] [place] [address] Aug, Generalized anxiety disorder F41.1 [facility] [address] [id number] [address] [place] [address] Aug, Other bipolar disorder F31.8 9 and Anxiety disorder, unspecified F41.9 [facility] [address] [id number] [address] [place] [address] Aug, [facility] [address] [facility] [id number] [address] [place] [address] Jul, [facility] [address] [facility] [id number] [address] [place] [address] Jul, [facility] [address] [facility] [id number] [address] [place] [address] Jul, Bronchitis J40 [facility] [address] [facility] [id number] [address] [place] [address] Jul, Anxiety disorder F41.9 [facility] [address] [facility] [id number] [address] [place] [address] Jul, Other bipolar disorder F31.8 9 and Anxiety disorder, unspecified F41.9 [facility] [address] [facility] [id number] [address] [place] [address] Jul, Other bipolar disorder F31.8 9 and Fibromyalgia M79.7 [facility] [address] [facility] [id number] [address] [place] [address] Jul, [facility] [address] [place] [id number] [address] [place] [address] Jul, [facility] [address] [place] [id number] [address] [place] [address] Jul, [facility] [address] [place] [id number] [address] [place] [address] Jul, Other bipolar disorder F31.8 9 and Anxiety disorder, unspecified F41.9 [facility] [address] [place] [id number] [address] [place] [address] Jun, GERD (gastroesophageal reflu x disease) K21.9 [facility] [address] [facility] [id number] [address] [place] [address] Jun, [facility] [address] [facility] [id number] [address] [place] [address] May, [facility] [address] [place] [id number] [address] [place] [address] May, Diabetes E11.9 ; Back pain M 54.9 ; GERD (gastroesophageal reflux disease) K21.9 ; Hypertension I10 and Peripheral neuropathy G62.9 [facility] [address] [id number] [address] [place] [address] Mar, [facility] [address] [id number] [address] [place] [address] Mar, [facility] [address] [id number] [address] [place] [address] Mar, Acute sinusitis J01.90 and O titis media, left H66.92 [facility] [address] [id number] [address] [place] [address] Feb, [facility] [address] [id number] [address] [place] [address] Feb, [facility] [address] [id number] [address] [place] [address] Feb, [facility] [address] [id number] [address] [place] [address] Feb, [facility] [address] [id number] [address] [place] [address] Jan, [facility] [address] [id number] [address] [place] [address] Jan, Diabetes 250.00 and Back higinio n 724.5 [facility] [address] [facility] [id number] [address] [place] [address] Jan, [facility] [address] [id number] [address] [place] [address] Dec, Diabetes 250.00 ; Benign ess ential hypertension 401.1 and Allergic rhinitis 477.9 [facility] [address] [id number] [address] [place] [address] Dec, [facility] [address] [facility] [id number] [address] [place] [address] Dec, [facility] [address] [id number] [address] [place] [address] Dec, Psychosis 298.9 [facility] [address] [id number] [address] [place] [address] 10 Dec, 2014 Medication side effect 995.2 0 and Generalized anxiety disorder 300.02 [facility] [address] [id number] [address] [place] [address] Dec, Acquired cognitive dysfuncti on 294.9 [facility] [address] [facility] [id number] [address] [place] [address] Dec, [facility] [address] [facility] [id number] [address] [place] [address] Dec, Unspecified myalgia and myos itis 729.1 and Generalized anxiety disorder 300.02 [facility] [address] [facility] [id number] [address] [place] [address] Nov, [facility] [address] [facility] [id number] [address] [place] [address] Nov, [facility] [address] [facility] [id number] [address] [place] [address] Nov, [facility] [address] [facility] [id number] [address] [place] [address] Nov, Upper respiratory infection 465.9 and Chronic airway obstruction, not elsewhere classified 496 [facility] [address] [facility] [id number] [address] [place] [address] Nov, Hyponatremia 276.1 [facility] [address] [facility] [id number] [address] [place] [address] Oct, [facility] [address] [facility] [id number] [address] [place] [address] Oct, [facility] [address] [facility] [id number] [address] [place] [address] Oct, [facility] [address] [facility] [id number] [address] [place] [address] Oct, [facility] [address] [facility] [id number] [address] [place] [address] 04 Oct, 2014 Hyponatremia 276.1 [facility] [address] [id number] [address] [place] [address] Oct, [facility] [address] [id number] [address] [place] [address] Oct, [facility] [address] [id number] [address] [place] [address] Oct, Generalized anxiety disorder 300.02 [facility] [address] [id number] [address] [place] [address] Oct, Generalized anxiety disorder 300.02 and Diabetes 250.00 [facility] [address] [id number] [address] [place] [address] Aug, [facility] [address] [facility] [id number] [address] [place] [address] Aug, [facility] [address] [id number] [address] [place] [address] Jul, [facility] [address] [id number] [address] [place] [address] Jul, [facility] [address] [id number] [address] [place] [address] Jun, [facility] [address] [id number] [address] [place] [address] Jun, [facility] [address] [id number] [address] [place] [address] Jun, [facility] [address] [id number] [address] [place] [address] Jun, [facility] [address] [id number] [address] [place] [address] Jun, [facility] [address] [id number] [address] [place] [address] May, [facility] [address] [id number] [address] [place] [address], [place] [address] May, [facility] [address] [id number] [address] [place] [address], [place] [address] Apr, [facility] [address] [id number] [address] [place] [address], [place] [address] Apr, [facility] [address] [id number] [address] [place] [address], [place] [address] Apr, [facility] [address] [id number] [address] [place] [address], [place] [address] Apr, [facility] [address] [id number] [address] [place] [address], [place] [address] Apr, [facility] [address] [id number] [address] [place] [address], [place] [address] Apr, [facility] [address] [id number] [address] [place] [address], [place] [address] Apr, [facility] [address] [id number] [address] [place] [address], [place] [address] Apr, [facility] [address] [id number] [address] [place] [address], [place] [address] Feb, [facility] [address] [id number] [address] [place] [address], [place] [address] Feb, [facility] [address] [id number] [address] [place] [address], [place] [address] Jan, [facility] [address] [id number] [address] [place] [address], [place] [address] Jan, [facility] [address] [id number] [address] [place] [address], [place] [address] Dec, [facility] [address] [id number] [address] [place] [address], [place] [address] Dec, [facility] [address] [id number] [address] [place] [address], [place] [address] Dec, [facility] [address] [id number] [address] [place] [address], [place] [address] Nov, [facility] [address] [id number] [address] [place] [address], [place] [address] Nov, [facility] [address] [id number] [address] [place] [address], [place] [address] Nov, [facility] [address] [id number] [address] [place] [address], [place] [address] Oct, [facility] [address] [id number] [address] [place] [address], [place] [address] Oct, [facility] [address] [id number] [address] [place] [address], [place] [address] Oct, [facility] [address] [id number] [address] [place] [address], [place] [address] September, [facility] [address] [id number] [address] [place] [address], [place] [address] September, [facility] [address] [id number] [address] [place] [address], [place] [address] September, [facility] [address] [id number] [address] [place] [address], [place] [address] Aug, [facility] [address] [id number] [address] [place] [address], [place] [address] Aug, [facility] [address] [id number] [address] [place] [address], [place] [address] Aug, [facility] [address] [id number] [address] [place] [address], [place] [address] 16 Aug, 2011 [facility] [address] [id number] [address] [place] [address], [place] [address] Jul, [facility] [address] [id number] [address] [place] [address], [place] [address] Jun, [facility] [address] [id number] [address] [place] [address], [place] [address] 14 Jun, 2011 [facility] [address] [id number] [address] [place] [address], [place] [address] 13 Jun, 2011 [facility] [address] [id number] [address] [place] [address] 07 Jun, 2011 [facility] [address] [id number] [address] [place] [address], [place] [address] 03 Jun, 2011 [facility] [address] [id number] [address] [place] [address], [place] [address] 13 May, 2011 [facility] [address] [id number] [address] [place] [address], [place] [address] May, [facility] [address] [id number] [address] [place] [address], [place] [address] May, [facility] [address] [id number] [address] [place] [address] May, [facility] [address] [id number] [address] [place] [address], [place] [address] Apr, [facility] [address] [id number] [address] [place] [address], [place] [address] Apr, [facility] [address] [id number] [address] [place] [address] Apr, [facility] [address] [id number] [address] [place] [address] Mar, [facility] [address] [id number] [address] [place] [address] Mar, [facility] [address] [id number] [address] [place] [address] 09 Mar, 2011 [facility] [address] [id number] [address] [place] [address] 13 Feb, 2011 [facility] [address] [id number] [address] [place] [address] 13 Feb, 2011 [facility] [address] [id number] [address] [place] [address] Feb, [facility] [address] [id number] [address] [place] [address] Nov, [facility] [address] [id number] [address] [place] [address] September, [facility] [address] [id number] [address] [place] [address] Aug, [facility] [address] [id number] [address] [place] [address] Jul, [facility] [address] [id number] [address] [place] [id number] May, [facility] [address] [id number] [address] [place] [phone] Apr, [facility] [address] [id number] [address] [place] [phone] Apr, [facility] [address] [id number] [address] [place] [phone] Apr, [facility] [address] [id number] [address] [place] [phone] Apr, [facility] [address] [id number] [address] [place] [phone] Apr, IMMUNIZATIONS No Known Immunizations SOCIAL HISTORY Never Assessed REASON FOR VISIT Asthma, feels like she can't get enough air even without activity. CBrumbackRN PLAN OF CARE VITAL SIGNS Height 66 in 2017-01-18 Weight 109.3 lbs 2017-01-18 Temperature 98.3 degrees Fahrenheit 2017-01-18 Heart Rate 92 bpm 2017-01-18 Respiratory Rate 18 2017-01-18 Oximetry on room air:94 % 2017-01-18 BMI 17.64 kg/m2 2017-01-18 Blood pressure systolic 138 mmHg 2017-01-18 Blood pressure diastolic 76 mmHg 2017-01-18 MEDICATIONS Medication Instructions Dosage Frequency Start Date End Date Duration S samantha Dicyclomine HCl 20 mg 1 tablet 6h A ctive Lamictal 100 mg Orally 2 times a day 1 tablet 12h September, Active Pdxphdhjlx-TFAT-Ycbdwdeg 50-325-40 MG Orally every 6 h ours as needed for headaches 1 capsule as needed Jun, 30 days Act minoo Clonidine HCl 0.1 MG Orally 3 times a day 1 tablet 8h Oct, 28 days Active Nebulizer 1 as directed Jul, Act minoo Insulin Pen Needle 32G X 6 MM as directed 24h Oct, Active MiraLax - Orally Once a day 4 grams 24h Acti ve Flonase 50 mcg/actuation 1 spray in each nostril 24h Apr, Active Glucosamine 1000 MG Orally Once a day 2 capsules 24h Active Lorazepam 2 MG Orally in the AM and noon and 4pm 1 tablet 2015 Active Lisinopril 30 MG Orally Once a day 1 tablet 24h Active Cetirizine HCl 10 mg Orally Once a day 1 tablet 24h Apr, 30 day(s) Active Zocor 10 mg Orally Once a day 1 tablet in the evening 24h 30 Active Mucinex 600 MG Orally every 12 hrs 1 tablet as needed 12h Active Calcium 600 + D 600-200 MG-UNIT Active Breo Ellipta 100-25 MCG/INH Inhalation Once a day 1 puff 24h Dec, 30 days Active Gas-X 80 mg Dec, Active Trazodone HCl 100 mg Orally for sleep 1 tablet at bedtime Jan Active Singulair 10 mg Orally Once a day 1 tablet in the evening 24h Oct, 30 day(s) Active Ibuprofen 600 MG Orally 3 times a day 1 tablet 8h Active Gabapentin 800 MG Orally Three times a day 1 tablet 8h Jul, Active Loxapine Succinate 10 mg Orally twice a day 1 capsule 12h September 30 days Active Levemir FlexTouch 100 UNIT/ML Subcutaneous Once a day 7 units 24h September, Active Multivitamin Adult - Act minoo Metoprolol Tartrate 25 MG TAKE ONE TABLET BY MOUTH TWICE D AILY WITH FOOD 30 Active Spiriva HandiHaler 18 MCG Inhalation Once a day 1 capsule 24h Oct Active Baclofen 20 MG Orally Three times a day 1 tablet with food or milk 8h 30 Active Anna 7.5-325 MG Orally 3 times a day 1 tablet as needed 8h Dec, 28 days Active Nexium 40 mg Orally Once a day 1 capsule 24h Dec, 30 day(s) Active Benztropine Mesylate 0.5 MG Orally twice a day Q AM and 4pm for restlessness 1 tablet Mar, Active Adderall 10 mg Orally Once a day 2 tablets 24h Jan, Active BusPIRone HCl 15 mg Orally 3 times a day 1 tablet 8h 07 Jan, 2016 Active Metformin HCl 1000 MG Orally Twice a day 1 tablet with meals 12h Aug, 30 day(s) Active Ventolin HFA 108 (90 Base) MCG/ACT Inhalation every 4 hrs 2 puffs a s needed 4h Dec, Active Probiotic - Orally once a day 24h Ac tive FiberCon 625 MG Orally Four times a day 1 tablet as needed 6h Active Xopenex 1.25 MG/3ML Inhalation 4 times a day prn 3 ml Dec, Active RESULTS Name Result Date Reference Range Xray : Chest (IN HOUSE) 2017-01-18 PROCEDURES Procedure Date Ordered Result Body Site MEASURE BLOOD OXYGEN LEVEL Jan 18, 2017 CHEST X-RAY Jan 18, 2017 [facility] VISIT ESTABLISHED PATIENT Jan 18, 2017 INSTRUCTIONS MEDICATIONS ADMINISTERED No Known Medications [...]
--- OUTSIDE RECORDS SUMMARY | 2019-07-17 11:17 | XMS REPORT ---
Author Author Sujey GANDHI Organization [facility] Address [address] [place] [address] Care Team Providers Care Public Health Educator Name Role Phone WHIT GANDHI Unavailable PROBLEMS Type Condition ICD9-CM Code KOD11-BA Code Onset Dates Condition S tatus SNOMED Code Problem Back pain M54.9 Active 360650457 Problem Diabetes E11.9 Active 89759554 Problem GERD (gastroesophageal reflux disease) K21.9 Active 323443768 Problem Hypertension I10 Active 6632651 3 Problem Anxiety disorder, unspecified F41.9 Active 573178894 Problem Other bipolar disorder F31.89 Active 96769992 Problem Fibromyalgia M79.7 Active 4674949 7 Problem Panic disorder with agoraphobia F40.01 Active 16087325 Problem Panlobular emphysema J43.1 Active 3656216 Problem Chronic obstructive pulmonary disease, unspecified J44.9 Active 18726218 Problem Akathisia G25.71 Active 166993522 Problem Lumbago with sciatica, left side M54.42 Active 414561912 Problem Migraine without aura and without status migrain osus, not intractable G43.009 Active 289530986 Problem Fibrocystic disease of right breast N60.11 Active 35473143 Problem Fibrocystic disease of left breast N60.12 Active 27297727 Problem Slow transit constipation K59.01 Acti ve 18537462 Problem Essential tremor G25.0 Active 609 079188 Problem Bipolar 1 disorder, depressed, moderate F31.32 Active 79185289 Problem Other chronic pain G89.29 Active 8 1628685 Problem Lumbago with sciatica, right side M54.41 Active 391186589 Problem Irritable bowel syndrome with constipation K58.1 Active 295703765 Problem Arthritis M19.90 Active 7994721 Problem Schizoaffective disorder, bipolar type F25.0 Active 19281805 Problem Irritable bowel syndrome with both constipation and diarrh ea K58.2 Active 83762979 Problem Attention deficit hyperactiv ity disorder (ADHD), predominantly inattentive type F90.0 Active 01052605 Problem Bipolar I disorder with depression F31.9 Active 69493591 Problem Chronic post-traumatic stress disorder (PTSD) F43. 12 Active 153168144 Problem Bipolar affective disorder, remission status unspecified F31.9 Active 16192035 Problem Mild persistent asthma without complication J45.30 Active 560809548 Problem Moderate persistent asthma without complication J4 5.40 Active 034862358 Problem Acute non-recurrent maxillary sinusitis J01.00 Active 85309887 Problem Bipolar 1 disorder, depressed, partial remission F 31.75 Active 13876487 ALLERGIES No Information ENCOUNTERS Encounter Location Date Diagnosis [place] [id number] [facility] [id number] [address] [place] [address] Nov, [place] [address] [place] [id number] [address] [place] [address] Nov, [place] [address] [facility] [id number] [address] [place] [address] Nov, [place] [address] [facility] [id number] [address] [place] [address] Nov, Mild persistent asthma witho ut complication J45.30 and Irritable bowel syndrome with both constipation and diarrhea K58.2 [place] [address] [facility] [id number] [address] [place] [address] Nov, [place] [address] [facility] [id number] [address] [place] [address] Oct, [place] [address] [facility] [id number] [address] [place] [address] Oct, [place] [address] [facility] [id number] [address] [place] [address] Oct, Type 2 diabetes mellitus wit h diabetic neuropathy, 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 ; Diabetes E11.9 ; Slow transit constipation K59.01 ; Edema of both legs R60.0 and Dysfunction of right eustachian tube H69.81 [place] [address] [facility] [id number] [address] [place] [address] Oct, Frequent headaches R51 [facility] [address] [id number] [address] [place] [id number] Oct, [facility] [address] [id number] [address] [place] [address] Oct, [facility] [address] [id number] [address] [place] [address] Oct, [facility] [address] [id number] [address] [place] [address] Oct, [facility] [address] [id number] [address] [place] [address] Oct, [facility] [address] [id number] [address] [place] [address] Oct, [facility] [address] [id number] [address] [place] [address] Oct, [facility] [address] [id number] [address] [place] [address] Oct, [facility] [address] [facility] [id number] [address] [place] [address] September, Frequent headaches R51 [facility] [address] [facility] [id number] [address] [place] [address] September, Bilateral otitis media with effusion H65.93 ; Dizziness R42 and Essential tremor G25.0 [facility] [address] [id number] [address] [place] [address] September, Chronic obstructive pulmonar y disease, unspecified COPD type J44.9 [facility] [address] [facility] [id number] [address] [place] [address] September, Chronic obstructive pulmonar y disease, unspecified COPD type J44.9 [facility] [address] [facility] [id number] [address] [place] [address] September, Migraine without aura and wi thout status migrainosus, not intractable G43.009 [facility] [address] [facility] [id number] [address] [place] [address] September, [facility] [address] [facility] [id number] [address] [place] [address] September, [facility] [address] [facility] [id number] [address] [place] [address] September, [facility] [address] [facility] [id number] [address] [place] [address] September, Frequent headaches R51 [facility] [address] [facility] [id number] [address] [place] [address] Aug, [facility] [address] [place] [id number] [address] [place] [address] Aug, Breast mass, right N63.10 [facility] [address] [place] [id number] [address] [place] [address] Aug, Breast lump N63.0 [facility] [address] [facility] [id number] [address] [place] [address] Aug, [facility] [address] [address] Aug, Bipolar affective disorder, remission status unspecified F31.9 and Diabetes E11.9 [place] [address] [place] [id number] [address] [place] [address] Aug, Diabetes E11.9 ; Schizoaffec tive disorder, bipolar type F25.0 ; Pharyngitis due to other organism J02.8 ; Panlobular emphysema J43.1 and Irritable bowel syndrome with both constipation and diarrhea K58.2 [facility] [address] [place] [id number] [address] [place] [address] Aug, Abnormal mammogram R92.8 [facility] [address] [place] [id number] [address] [place] [address] Aug, [facility] [address] [place] [id number] [place] [address] Aug, Bipolar 1 disorder, depresse d, moderate F31.32 ; Panic disorder with agoraphobia F40.01 and Chronic post-traumatic stress disorder (PTSD) F43.12 [facility] [address] [facility] [id number] [address] [place] [address] Aug, [facility] [address] [place] [id number] [address] [place] [address] Aug, [facility] [address] [facility] [id number] [address] [place] [address] Aug, [facility] [address] [place] [id number] [place] [address] Jul, [facility] [address] [place] [id number] [place] [address] Jul, Mild persistent asthma witho ut complication J45.30 [facility] [address] [place] [id number] [address] [place] [address] Jul, Mild persistent asthma witho ut complication J45.30 [facility] [address] [address] 15 Jul, 2017 Bipolar affective disorder, remission status unspecified F31.9 ; Diabetes E11.9 and Irritable bowel syndrome with constipation K58.1 [facility] [address] [place] [address] Jul, [facility] [address] [place] [id number] [address] [place] [address] Jul, [facility] [address] [address] 08 Jul, 2017 Frequent headaches R51 [facility] [address] [place] [id number] [address] [place] [address] 07 Jul, 2017 [facility] [address] [place] [id number] [address] [place] [address] Jul, [facility] [address] [place] [address] Jul, [place] [address] [address] Jul, Frequent headaches R51 ; Fib rocystic disease of left breast N60.12 ; Fibrocystic disease of right breast N60.11 and Diabetes E11.9 [place] [address] [address] Jul, [place] [address] [address] Jul, [place] [address] [address] Jun, Exudative tonsillitis J03.90 [place] [address] [address] 20 Jun, 2017 [place] [address] [address] 19 Jun, 2017 [place] [address] [address] 15 Jun, 2017 Mild persistent asthma witho ut complication J45.30 ; Chronic obstructive pulmonary disease, unspecified COPD type J44.9 and Exudative tonsillitis J03.90 [place] [address] [address] 13 Jun, 2017 Encounter for immunization Z 23 [place] [address] [place] [id number] [address] [place] [address] Jun, [place] [address] [address] Jun, [place] [address] [address] 09 Jun, 2017 [facility] [address] [place] [id number] [address] [place] [address] 06 Jun, 2017 Tonsillitis J03.90 [facility] [address] [address] 05 Jun, 2017 [facility] [address] [address] 03 Jun, 2017 Acute non-recurrent maxillar y sinusitis J01.00 [facility] [address] [address] 02 Jun, 2017 [facility] [address] [address] May, [place] [address] [address] May, [place] [address] [address] May, GERD (gastroesophageal reflu x disease) K21.9 [place] [address] [address] May, Migraine without aura and wi thout status migrainosus, not intractable G43.009 [place] [address] [address] May, [place] [address] [address] May, [place] [address] [address] May, Panlobular emphysema J43.1 a nd Acute non-recurrent maxillary sinusitis J01.00 [place] [address] [address] May, Bipolar 1 disorder, depresse d, moderate F31.32 ; Panic disorder with agoraphobia F40.01 and Akathisia G25.71 [place] [address] [address] Apr, [facility] [address] [id number] [address] [place] [address] Apr, [facility] [address] [facility] [id number] [address] [place] [address] Apr, Acute non-recurrent maxillar y sinusitis J01.00 [facility] [address] [facility] [id number] [address] [place] [address] 07 Apr, 2017 Panlobular emphysema J43.1 [facility] [address] [id number] [address] [place] [address] 04 Apr, 2017 [facility] [address] [facility] [id number] [address] [place] [address] 04 Apr, 2017 Sore throat J02.9 and Exudat minoo tonsillitis J03.90 [facility] [address] [facility] [id number] [address] [place] [address] 17 Mar, 2017 [facility] [address] [facility] [id number] [address] [place] [address] 15 Mar, 2017 Acute non-recurrent maxillar y sinusitis J01.00 [facility] [address] [facility] [id number] [address] [place] [address] Mar, [facility] [address] [facility] [id number] [address] [place] [address] 09 Mar, 2017 Panlobular emphysema J43.1 a nd Diabetes E11.9 [facility] [address] [facility] [id number] [address] [place] [address] 06 Mar, 2017 [facility] [address] [facility] [id number] [address] [place] [address] Feb, Wheezing R06.2 and Acute rec urrent pansinusitis J01.41 [facility] [address] [facility] [id number] [address] [place] [address] Feb, [facility] [address] [facility] [id number] [address] [place] [address] Feb, Acute non-recurrent maxillar y sinusitis J01.00 [facility] [address] [id number] [address] [place] [address] 16 Feb, 2017 Chronic obstructive pulmonar y disease, unspecified J44.9 [facility] [address] [id number] [address] [place] [address] Feb, Hypoxemia R09.02 and Chronic obstructive pulmonary disease, unspecified J44.9 [facility] [address] [id number] [address] [place] [address] 28 Jan, 2017 Bipolar 1 disorder, depresse d, moderate F31.32 ; Panic disorder with agoraphobia F40.01 ; Chronic post-traumatic stress disorder (PTSD) F43.12 ; Diabetes E11.9 and Moderate persistent asthma without complication J45.40 [place] [address] [id number] [address] [place] [address] Jan, [facility] [address] [id number] [address] [place] [address] 19 Jan, 2017 Acute non-recurrent maxillar y sinusitis J01.00 [facility] [address] [id number] [address] [place] [address] 18 Jan, 2017 [facility] [address] [id number] [address] [place] [address] 18 Jan, 2017 [facility] [address] [id number] [address] [place] [address] Jan, Moderate persistent asthma w [facility] complication J45.40 and Hypoxemia R09.02 [facility] [address] [id number] [address] [place] [address] 11 Jan, 2017 Moderate persistent asthma w [facility] complication J45.40 and Hypoxemia R09.02 [facility] [address] [id number] [address] [place] [address] Jan, [facility] [address] [facility] [id number] [address] [place] [address] Dec, Acute non-recurrent maxillar y sinusitis J01.00 [facility] [address] [id number] [address] [place] [address] Dec, Chronic obstructive pulmonar y disease, unspecified J44.9 [facility] [address] [id number] [address] [place] [address] Dec, [facility] [address] [id number] [address] [place] [address] Dec, Mild persistent asthma witho ut complication J45.30 and Other chronic pain G89.29 [facility] [address] [id number] [address] [place] [address] Nov, [facility] [address] [id number] [address] [place] [address] Nov, Acute non-recurrent maxillar y sinusitis J01.00 [facility] [address] [id number] [address] [place] [address] Nov, [facility] [address] [id number] [address] [place] [address] Nov, [facility] [address] [id number] [address] [place] [id number] Oct, [facility] [address] [id number] [address] [place] [address] Oct, Bipolar 1 disorder, depresse d, partial remission F31.75 ; Panic disorder with agoraphobia F40.01 and Chronic post-traumatic stress disorder (PTSD) F43.12 [facility] [address] [id number] [address] [place] [address] Oct, Acute non-recurrent maxillar y sinusitis J01.00 [facility] [address] [id number] [address] [place] [address] Oct, [facility] [address] [facility] [id number] [address] [place] [address] Oct, Diabetes E11.9 [facility] [address] [facility] [id number] [address] [place] [address] September, Diabetes E11.9 [facility] [address] [facility] [id number] [address] [place] [address] September, Diabetes E11.9 and Sinus tac hycardia R00.0 [facility] [address] [facility] [id number] [address] [place] [address] September, [facility] [address] [facility] [id number] [address] [place] [address] September, [facility] [address] [facility] [id number] [address] [place] [address] Aug, Diabetes E11.9 and Lumbago w ith sciatica, right side M54.41 [facility] [address] [facility] [id number] [address] [place] [address] Aug, [facility] [address] [facility] [id number] [address] [place] [address] Jul, Bipolar 1 disorder, depresse d, moderate F31.32 ; Panic disorder with agoraphobia F40.01 and Chronic post-traumatic stress disorder (PTSD) F43.12 [facility] [address] [facility] [id number] [address] [place] [address] Jul, Sore throat J02.9 [facility] [address] [facility] [id number] [address] [place] [address] Jul, [facility] [address] [facility] [id number] [address] [place] [address] Jul, [facility] [address] [facility] [id number] [address] [place] [address] Jul, [facility] [address] [facility] [id number] [address] [place] [address] Jul, [facility] [address] [facility] [id number] [address] [place] [address] Jul, Sore throat J02.9 and Pharyn gitis, unspecified etiology J02.9 [facility] [address] [id number] [address] [place] [address] Jun, [facility] [address] [id number] [address] [place] [address] Jun, Diabetes E11.9 [facility] [address] [id number] [address] [place] [address] Jun, [facility] [address] [id number] [address] [place] [address] Jun, [facility] [address] [facility] [id number] [address] [place] [address] Jun, [facility] [address] [facility] [id number] [address] [place] [address] Jun, [facility] [address] [facility] [id number] [address] [place] [address] Jun, [facility] [address] [facility] [id number] [address] [place] [address] Jun, [facility] [address] [facility] [id number] [address] [place] [address] Jun, [facility] [address] [facility] [id number] [address] [place] [address] Jun, [facility] [address] [facility] [id number] [address] [place] [address] May, Diabetes E11.9 ; Bipolar I d isorder with depression F31.9 ; Other chronic pain G89.29 ; Acute recurrent maxillary sinusitis J01.01 and Anxiety disorder, unspecified F41.9 [facility] [address] [facility] [id number] [address] [place] [address] May, [facility] [address] [facility] [id number] [address] [place] [address] May, Diabetes E11.9 ; Bipolar I d isorder with depression F31.9 ; Anxiety disorder, unspecified F41.9 ; Other chronic pain G89.29 and Acute recurrent maxillary sinusitis J01.01 [place] [address] [facility] [id number] [address] [place] [address] May, [place] [address] [facility] [id number] [address] [place] [address] May, Attention deficit hyperactiv ity disorder (ADHD), predominantly inattentive type F90.0 [place] [address] [facility] [id number] [address] [place] [address] May, [place] [address] [place] [id number] [address] [place] [address] Apr, Attention deficit hyperactiv ity disorder (ADHD), predominantly inattentive type F90.0 and Non-seasonal allergic rhinitis due to other allergic trigger J30.89 [place] [address] [place] [id number] [address] [place] [address] Apr, Bipolar 1 disorder, depresse d, moderate F31.32 ; Panic disorder with agoraphobia F40.01 and Chronic post-traumatic stress disorder (PTSD) F43.12 [place] [address] [place] [id number] [address] [place] [address] Apr, Dental examination Z01.20 [place] [address] [place] [id number] [address] [place] [address] Mar, [place] [address] [facility] [id number] [address] [place] [address] Mar, [place] [address] [place] [id number] [address] [place] [address] Mar, Bipolar I disorder with depr ession F31.9 and Anxiety disorder, unspecified F41.9 [place] [address] [place] [id number] [address] [place] [phone] Mar, Panic disorder with agorapho syd F40.01 ; Bipolar 1 disorder, depressed, moderate F31.32 and Chronic post-traumatic stress disorder (PTSD) F43.12 [place] [address] [place] [id number] [address] [place] [phone] Mar, [place] [address] [place] [id number] [place] [id number] Mar, Dental caries K02.9 [place] [address] [place] [id number] [place] [phone] Feb, Lumbago with sciatica, left side M54.42 ; Lumbago with sciatica, right side M54.41 and Other chronic pain G89.29 [place] [address] [place] [id number] [place] [phone] 17 Feb, 2016 [place] [address] [place] [id number] [place] [phone] Feb, [place] [address] [phone] Feb, Bipolar I disorder with depr ession F31.9 ; PTSD (post-traumatic stress disorder) F43.10 and Mood disorder F39 [place] [id number] [place] [phone] Feb, [place] [address] [place] [id number] [place] [phone] Feb, Dental examination Z01.20 [place] [address] [place] [id number] [place] [phone] Feb, [facility] [address] [place] [id number] [place] [phone] Feb, Acute bronchitis, unspecifie d organism J20.9 [facility] [address] [facility] [id number] [address] [place] [phone] Jan, Mood disorder F39 ; Migraine without aura and without status migrainosus, not intractable G43.009 ; Irritable bowel syndrome, unspecified type K58.9 ; Diabetes E11.9 and Encounter for immunization Z23 [facility] [address] [facility] [id number] [address] [place] [address] Jan, [facility] [address] [facility] [id number] [address] [place] [address] Jan, [facility] [address] [place] [id number] [address] [place] [address] Jan, [facility] [address] [place] [id number] [address] [place] [address] Jan, [facility] [address] [facility] [id number] [address] [place] [address] Jan, [facility] [address] [place] [id number] [address] [place] [address] Dec, Bipolar I disorder with depr ession F31.9 ; PTSD (post-traumatic stress disorder) F43.10 and Panic disorder with agoraphobia F40.01 [facility] [id number] [place] [address] Dec, Chronic obstructive pulmonar y disease, unspecified COPD type J44.9 ; Tremor R25.1 and Anxiety F41.9 [facility] [address] [place] [id number] [address] [place] [address] Dec, [facility] [address] [place] [id number] [address] [place] [address] Nov, Tremors of nervous system R2 5.1 and Cramping of feet R25.2 [facility] [address] [facility] [id number] [address] [place] [address] Nov, [facility] [address] [place] [id number] [address] [place] [address] Nov, [facility] [address] [place] [id number] [address] [place] [address] Oct, Chronic obstructive pulmonar y disease, unspecified J44.9 [facility] [address] [place] [id number] [address] [place] [address] Oct, [facility] [address] [facility] [id number] [address] [place] [address] Oct, Tremor R25.1 [facility] [address] [facility] [id number] [address] [place] [address] Oct, Bipolar I disorder with depr ession F31.9 ; Diabetes E11.9 ; PTSD (post-traumatic stress disorder) F43.10 and Panic disorder with agoraphobia F40.01 [facility] [address] [facility] [id number] [address] [place] [address] Oct, Mood disorder F39 [place] [address] [facility] [id number] [address] [place] [address] September, [place] [address] [place] [id number] [address] [place] [address] September, Diabetes E11.9 ; Bipolar I d isorder with depression F31.9 ; PTSD (post-traumatic stress disorder) F43.10 and Panic disorder with agoraphobia F40.01 [place] [address] [facility] [id number] [address] [place] [address] September, Mood disorder F39 ; Schizoaf fective disorder, unspecified type F25.9 ; Arthritis M19.90 ; Tremor R25.1 ; Acute non-recurrent frontal sinusitis J01.10 and Blood in stool K92.1 [facility] [address] [facility] [id number] [address] [place] [address] September, [place] [address] [facility] [id number] [address] [place] [address] September, Chronic obstructive pulmonar y disease, unspecified J44.9 [facility] [address] [facility] [id number] [address] [place] [address] September, Diabetes E11.9 [place] [address] [place] [id number] [address] [place] [address] Aug, Other bipolar disorder F31.8 9 and Anxiety disorder, unspecified F41.9 [facility] [address] [id number] [address] [place] [address] Aug, [facility] [address] [id number] [address] [place] [address] Aug, Diabetes E11.9 [facility] [address] [id number] [address] [place] [address] 18 Aug, 2015 [facility] [address] [id number] [address] [place] [address] 14 Aug, 2015 Diabetes E11.9 ; Fatigue R53 .83 and Dizziness R42 [facility] [address] [id number] [address] [place] [address] 13 Aug, 2015 Other bipolar disorder F31.8 9 [facility] [address] [id number] [address] [place] [address] 07 Aug, 2015 Generalized anxiety disorder F41.1 [facility] [address] [id number] [address] [place] [address] 07 Aug, 2015 Other bipolar disorder F31.8 9 and Anxiety disorder, unspecified F41.9 [facility] [address] [id number] [address] [place] [address] Aug, [facility] [address] [id number] [address] [place] [address] Jul, [facility] [address] [id number] [address] [place] [address] Jul, [facility] [address] [id number] [address] [place] [address] Jul, Bronchitis J40 [facility] [address] [id number] [address] [place] [address] Jul, Anxiety disorder F41.9 [facility] [address] [id number] [address] [place] [address] Jul, Other bipolar disorder F31.8 9 and Anxiety disorder, unspecified F41.9 [facility] [address] [id number] [address] [place] [address] Jul, Other bipolar disorder F31.8 9 and Fibromyalgia M79.7 [facility] [address] [id number] [address] [place] [address] Jul, [facility] [address] [facility] [id number] [address] [place] [address] Jul, [facility] [address] [id number] [address] [place] [address] Jul, [facility] [address] [facility] [id number] [address] [place] [address] Jul, Other bipolar disorder F31.8 9 and Anxiety disorder, unspecified F41.9 [facility] [address] [facility] [id number] [address] [place] [address] Jun, GERD (gastroesophageal reflu x disease) K21.9 [facility] [address] [facility] [id number] [address] [place] [address] Jun, [facility] [address] [facility] [id number] [address] [place] [address] May, [facility] [address] [facility] [id number] [address] [place] [address] May, Diabetes E11.9 ; Back pain M 54.9 ; GERD (gastroesophageal reflux disease) K21.9 ; Hypertension I10 and Peripheral neuropathy G62.9 [facility] [address] [facility] [id number] [address] [place] [address] Mar, [facility] [address] [facility] [id number] [address] [place] [address] Mar, [facility] [address] [facility] [id number] [address] [place] [address] Mar, Acute sinusitis J01.90 and O titis media, left H66.92 [facility] [address] [id number] [address] [place] [address] Feb, [facility] [address] [facility] [id number] [address] [place] [address] Feb, [facility] [address] [facility] [id number] [address] [place] [address] Feb, [facility] [address] [facility] [id number] [address] [place] [address] Feb, [facility] [address] [facility] [id number] [address] [place] [address] Jan, [facility] [address] [facility] [id number] [address] [place] [address] Jan, Diabetes 250.00 and Back higinio n 724.5 [facility] [address] [facility] [id number] [address] [place] [address] Jan, [facility] [address] [facility] [id number] [address] [place] [address] Dec, Diabetes 250.00 ; Benign ess ential hypertension 401.1 and Allergic rhinitis 477.9 [facility] [address] [facility] [id number] [address] [place] [address] Dec, [facility] [address] [facility] [id number] [address] [place] [address] Dec, [facility] [address] [facility] [id number] [address] [place] [address] Dec, Psychosis 298.9 [facility] [address] [facility] [id number] [address] [place] [address] Dec, Medication side effect 995.2 0 and Generalized anxiety disorder 300.02 [facility] [address] [facility] [id number] [address] [place] [address] Dec, Acquired cognitive dysfuncti on 294.9 [facility] [address] [facility] [id number] [address] [place] [address] Dec, [facility] [address] [facility] [id number] [address] [place] [address] Dec, Unspecified myalgia and myos itis 729.1 and Generalized anxiety disorder 300.02 [facility] [address] [id number] [address] [place] [address] Nov, [facility] [address] [facility] [id number] [address] [place] [address] Nov, [facility] [address] [id number] [address] [place] [address] Nov, [facility] [address] [facility] [id number] [address] [place] [address] Nov, Upper respiratory infection 465.9 and Chronic airway obstruction, not elsewhere classified 496 [facility] [address] [facility] [id number] [address] [place] [address] Nov, Hyponatremia 276.1 [facility] [address] [facility] [id number] [address] [place] [address] Oct, [facility] [address] [facility] [id number] [address] [place] [address] Oct, [facility] [address] [facility] [id number] [address] [place] [address] Oct, [facility] [address] [facility] [id number] [address] [place] [address] Oct, [facility] [address] [facility] [id number] [address] [place] [address] Oct, Hyponatremia 276.1 [facility] [address] [facility] [id number] [address] [place] [address] Oct, [facility] [address] [facility] [id number] [address] [place] [address] Oct, [facility] [address] [facility] [id number] [address] [place] [address] Oct, Generalized anxiety disorder 300.02 [facility] [address] [id number] [address] [place] [address] Oct, Generalized anxiety disorder 300.02 and Diabetes 250.00 [facility] [address] [id number] [address] [place] [address] 14 Aug, 2014 [facility] [address] [id number] [address] [place] [address] Aug, [facility] [address] [id number] [address] [place] [address] Jul, [facility] [address] [id number] [address] [place] [address] Jul, [facility] [address] [id number] [address] [place] [address] Jun, [facility] [address] [id number] [address] [place] [address] Jun, [facility] [address] [id number] [address] [place] [address] Jun, [facility] [address] [id number] [address] [place] [address], [place] [address] Jun, [facility] [address] [id number] [address] [place] [address] Jun, [facility] [address] [id number] [address] [place] [address] May, [facility] [address] [id number] [address] [place] [address] May, [facility] [address] [id number] [address] [place] [address] Apr, [facility] [address] [id number] [address] [place] [address] Apr, [facility] [address] [id number] [address] [place] [address] Apr, [facility] [address] [id number] [address] [place] [address], [place] [address] Apr, [facility] [address] [id number] [address] [place] [address], [place] [address] Apr, [facility] [address] [id number] [address] [place] [address], [place] [address] Apr, [facility] [address] [id number] [address] [place] [address], [place] [address] Apr, [facility] [address] [id number] [address] [place] [address], [place] [address] Apr, [facility] [address] [id number] [address] [place] [address], [place] [address] Feb, [facility] [address] [id number] [address] [place] [address], [place] [address] Feb, [facility] [address] [id number] [address] [place] [address], [place] [address] Jan, [facility] [address] [id number] [address] [place] [address], [place] [address] Jan, [facility] [address] [id number] [address] [place] [address], [place] [address] Dec, [facility] [address] [id number] [address] [place] [address], [place] [address] Dec, [facility] [address] [id number] [address] [place] [address], [place] [address] Dec, [facility] [address] [id number] [address] [place] [address], [place] [address] Nov, [facility] [address] [id number] [address] [place] [address], [place] [address] Nov, [facility] [address] [id number] [address] [place] [address], [place] [address] Nov, [facility] [address] [id number] [address] [place] [address] [place] [address] Oct, [facility] [address] [id number] [address] [place] [address], [place] [address] Oct, [facility] [address] [id number] [address] [place] [address], [place] [address] Oct, [facility] [address] [id number] [address] [place] [address], [place] [address] September, [facility] [address] [id number] [address] [place] [address], [place] [address] September, [facility] [address] [id number] [address] [place] [address], [place] [address] September, [facility] [address] [id number] [address] [place] [address], [place] [address] Aug, [facility] [address] [id number] [address] [place] [address], [place] [address] Aug, [facility] [address] [id number] [address] [place] [address], [place] [address] Aug, [facility] [address] [id number] [address] [place] [address], [place] [address] 16 Aug, 2011 [facility] [address] [id number] [address] [place] [address], [place] [address] Jul, [facility] [address] [id number] [address] [place] [address], [place] [address] Jun, [facility] [address] [id number] [address] [place] [address], [place] [address] 14 Jun, 2011 [facility] [address] [id number] [address] [place] [address], [place] [address] 13 Jun, 2011 [facility] [address] [id number] [address] [place] [address], [place] [address] 07 Jun, 2011 [facility] [address] [id number] [address] [place] [address], [place] [address] 03 Jun, 2011 [facility] [address] [id number] [address] [place] [address], [place] [address] May, [facility] [address] [id number] [address] [place] [address], [place] [address] May, [facility] [address] [id number] [address] [place] [address], [place] [address] May, [facility] [address] [id number] [address] [place] [address], [place] [address] May, [facility] [address] [id number] [address] [place] [address], [place] [address] Apr, [facility] [address] [id number] [address] [place] [address], [place] [address] Apr, [facility] [address] [id number] [address] [place] [address], [place] [address] Apr, [facility] [address] [id number] [address] [place] [address], [place] [address] Mar, [facility] [address] [id number] [address] [place] [address], [place] [address] Mar, [facility] [address] [id number] [address] [place] [address], [place] [address] Mar, [facility] [address] [id number] [address] [place] [address] Feb, [facility] [address] [id number] [address] [place] [address] Feb, [facility] [address] [id number] [address] [place] [address], [place] [address] Feb, [facility] [address] [id number] [address] [place] [address], [place] [address] Nov, [facility] [address] [id number] [address] [place] [address], [place] [address] September, [facility] [address] [id number] [address] [place] [address] Aug, [facility] [address] [id number] [address] [place] [address] Jul, [facility] [address] [id number] [address] [place] [address] May, [facility] [address] [id number] [address] [place] [address] Apr, [facility] [address] [id number] [address] [place] [address] Apr, [facility] [address] [id number] [address] [place] [address] Apr, [facility] [address] [facility] [id number] [address] [place] [address] Apr, [facility] [address] [facility] [id number] [address] [place] [address] Apr, IMMUNIZATIONS No Known Immunizations SOCIAL HISTORY Never Assessed REASON FOR VISIT Requests return call & CCM call PLAN OF CARE VITAL SIGNS MEDICATIONS Medication Instructions Dosage Frequency Start Date End Date Duration S tatus Diclofenac Sodium 1 % Transdermal Four times a day 2-4- grams to affected areas 6h Jun, 30 days Active RESULTS No Results PROCEDURES [...]
--- OUTSIDE RECORDS SUMMARY | 2019-07-17 11:17 | XMS REPORT ---
Author Author Sujey GANDHI Organization [facility] Address [address] [place] [address] Care Team Providers Care Miller First Name Role Phone WHIT GANDHI Unavailable PROBLEMS Type Condition ICD9-CM Code [id number] Code Onset Dates Condition S tatus SNOMED Code Problem Back pain M54.9 Active 439781349 Problem GERD (gastroesophageal reflux disease) K21.9 Active 395471615 Problem Diabetes E11.9 Active 12498140 Problem Hypertension I10 Active 2921715 3 Problem Anxiety disorder, unspecified F41.9 Active 829722659 Problem Other bipolar disorder F31.89 Active 28260795 Problem Mild persistent asthma without complication J45.30 Active 536343547 Problem Fibromyalgia M79.7 Active 9715475 7 Problem Moderate persistent asthma without complication J4 5.40 Active 996380639 Problem Panic disorder with agoraphobia F40.01 Active 88409852 Problem Panlobular emphysema J43.1 Active 3692778 Problem Migraine without aura and without status migrain osus, not intractable G43.009 Active 689217195 Problem Akathisia G25.71 Active 135712281 Problem Schizoaffective disorder, bipolar type F25.0 Active 50052328 Problem Irritable bowel syndrome with both constipation and diarrh ea K58.2 Active 78956712 Problem Lumbago with sciatica, left side M54.42 Active 327716586 Problem Other chronic pain G89.29 Active 8 2142669 Problem Chronic obstructive pulmonary disease, unspecified J44.9 Active 71539406 Problem Fibrocystic disease of left breast N60.12 Active 98188090 Problem Fibrocystic disease of right breast N60.11 Active 92474407 Problem Irritable bowel syndrome with constipation K58.1 Active 161105543 Problem Arthritis M19.90 Active 2410637 Problem Chronic post-traumatic stress disorder (PTSD) F43. 12 Active 614242385 Problem Bipolar affective disorder, remission status unspecified F31.9 Active 79642673 Problem Lumbago with sciatica, right side M54.41 Active 087334075 Problem Bipolar 1 disorder, depressed, moderate F31.32 Active 53396868 Problem Acute non-recurrent maxillary sinusitis J01.00 Active 73145948 Problem Bipolar 1 disorder, depressed, partial remission F 31.75 Active 09228296 Problem Attention deficit hyperactiv ity disorder (ADHD), predominantly inattentive type F90.0 Active 20669551 Problem Bipolar I disorder with depression F31.9 Active 42201800 ALLERGIES No Information ENCOUNTERS Encounter Location Date Diagnosis [facility] [id number] [place] [id number] Nov, [facility] [id number] [place] [phone] September, [facility] [address] [address] September, Migraine without aura and wi thout status migrainosus, not intractable G43.009 [facility] [id number] [place] [phone] September, [facility] [id number] [place] [id number] September, [facility] [id number] [place] [phone] September, [facility] [id number] [place] [phone] September, Frequent headaches R51 [facility] [id number] [place] [id number] Aug, [facility] [id number] [place] [address] Aug, Breast mass, right N63.10 [facility] [id number] [place] [id number] Aug, Breast lump N63.0 [facility] [id number] [place] [id number] Aug, [facility] [address] [id number] [address] [place] [id number] Aug, Bipolar affective disorder, remission status unspecified F31.9 and Diabetes E11.9 [facility] [address] [id number] [address] [place] [id number] 18 Aug, 2017 Diabetes E11.9 ; Schizoaffec tive disorder, bipolar type F25.0 ; Pharyngitis due to other organism J02.8 ; Panlobular emphysema J43.1 and Irritable bowel syndrome with both constipation and diarrhea K58.2 [place] [address] [id number] [address] [place] [phone] Aug, Abnormal mammogram R92.8 [place] [address] [id number] [address] [place] [id number] Aug, [place] [address] [facility] [id number] [address] [place] [id number] Aug, Bipolar 1 disorder, depresse d, moderate F31.32 ; Panic disorder with agoraphobia F40.01 and Chronic post-traumatic stress disorder (PTSD) F43.12 [place] [address] [id number] [address] [place] [id number] Aug, [place] [address] [facility] [id number] [address] [place] [id number] Aug, [place] [address] [facility] [id number] [address] [place] [id number] Aug, [place] [address] [id number] [address] [place] [id number] Jul, [place] [address] [facility] [id number] [address] [place] [id number] Jul, Mild persistent asthma witho ut complication J45.30 [place] [address] [id number] [address] [place] [id number] Jul, Mild persistent asthma witho ut complication J45.30 [facility] [address] [facility] [id number] [address] [place] [id number] 15 Jul, 2017 Bipolar affective disorder, remission status unspecified F31.9 ; Diabetes E11.9 and Irritable bowel syndrome with constipation K58.1 [facility] [address] [facility] [id number] [address] [place] [id number] 13 Jul, 2017 [facility] [address] [facility] [id number] [address] [place] [id number] Jul, [facility] [address] [facility] [id number] [address] [place] [id number] 08 Jul, 2017 Frequent headaches R51 [facility] [address] [facility] [id number] [address] [place] [phone] Jul, [facility] [address] [facility] [id number] [address] [place] [phone] Jul, [facility] [address] [facility] [id number] [address] [place] [phone] Jul, [facility] [address] [facility] [id number] [address] [place] [address] Jul, Frequent headaches R51 ; Fib rocystic disease of left breast N60.12 ; Fibrocystic disease of right breast N60.11 and Diabetes E11.9 [facility] [address] [facility] [id number] [address] [place] [id number] Jul, [facility] [address] [facility] [id number] [address] [place] [id number] Jul, [facility] [address] [facility] [id number] [address] [place] [id number] Jun, Exudative tonsillitis J03.90 [facility] [address] [facility] [id number] [address] [place] [phone] Jun, [facility] [address] [facility] [id number] [address] [place] [id number] Jun, [facility] [address] [facility] [id number] [address] [place] [id number] 15 Jun, 2017 Mild persistent asthma witho ut complication J45.30 ; Chronic obstructive pulmonary disease, unspecified COPD type J44.9 and Exudative tonsillitis J03.90 [facility] [address] [facility] [id number] [address] [place] [phone] 13 Jun, 2017 Encounter for immunization Z 23 [facility] [address] [facility] [id number] [address] [place] [id number] 12 Jun, 2017 [facility] [id number] [place] [id number] 12 Jun, 2017 [place] [id number] [place] [phone] 09 Jun, 2017 [facility] [address] [facility] [id number] [address] [place] [id number] 06 Jun, 2017 Tonsillitis J03.90 [facility] [address] [facility] [id number] [address] [place] [phone] 05 Jun, 2017 [place] [address] [id number] 03 Jun, 2017 Acute non-recurrent maxillar y sinusitis J01.00 [place] [id number] [place] [phone] 02 Jun, 2017 [place] [id number] [place] [phone] May, [place] [id number] [place] [phone] May, [place] [id number] [place] [phone] May, GERD (gastroesophageal reflu x disease) K21.9 [facility] [id number] [place] [id number] May, Migraine without aura and wi thout status migrainosus, not intractable G43.009 [facility] [address] [id number] [address] [place] [id number] May, [facility] [address] [id number] [address] [place] [phone] May, [facility] [address] [facility] [id number] [address] [place] [phone] May, Panlobular emphysema J43.1 a nd Acute non-recurrent maxillary sinusitis J01.00 [facility] [address] [id number] [address] [place] [id number] May, Bipolar 1 disorder, depresse d, moderate F31.32 ; Panic disorder with agoraphobia F40.01 and Akathisia G25.71 [facility] [address] [facility] [id number] [address] [place] [id number] 27 Apr, 2017 [facility] [address] [id number] [address] [place] [id number] Apr, [facility] [address] [facility] [id number] [address] [place] [id number] Apr, Acute non-recurrent maxillar y sinusitis J01.00 [facility] [address] [id number] [address] [place] [id number] Apr, Panlobular emphysema J43.1 [facility] [address] [id number] [address] [place] [id number] 04 Apr, 2017 [facility] [address] [id number] [address] [place] [id number] 04 Apr, 2017 Exudative tonsillitis J03.90 and Sore throat J02.9 [facility] [address] [facility] [id number] [address] [place] [id number] 17 Mar, 2017 [facility] [address] [facility] [id number] [address] [place] [id number] Mar, Acute non-recurrent maxillar y sinusitis J01.00 [facility] [address] [facility] [id number] [address] [place] [id number] 13 Mar, 2017 [facility] [address] [facility] [id number] [address] [place] [id number] Mar, Panlobular emphysema J43.1 a nd Diabetes E11.9 [facility] [address] [facility] [id number] [address] [place] [id number] 06 Mar, 2017 [facility] [address] [facility] [id number] [address] [place] [id number] 24 Feb, 2017 Wheezing R06.2 and Acute rec urrent pansinusitis J01.41 [facility] [address] [facility] [id number] [address] [place] [id number] Feb, [facility] [id number] [place] [id number] Feb, Acute non-recurrent maxillar y sinusitis J01.00 [facility] [id number] [place] [id number] Feb, Chronic obstructive pulmonar y disease, unspecified J44.9 [facility] [id number] [place] [id number] Feb, Hypoxemia R09.02 and Chronic obstructive pulmonary disease, unspecified J44.9 [facility] [id number] [place] [id number] 28 Jan, 2017 Bipolar 1 disorder, depresse d, moderate F31.32 ; Panic disorder with agoraphobia F40.01 ; Chronic post-traumatic stress disorder (PTSD) F43.12 ; Diabetes E11.9 and Moderate persistent asthma without complication J45.40 [facility] [address] [facility] [id number] [address] [place] [id number] Jan, [facility] [id number] [place] [id number] Jan, Acute non-recurrent maxillar y sinusitis J01.00 [facility] [address] [id number] [address] [place] [id number] 18 Jan, 2017 [facility] [address] [id number] [address] [place] [id number] Jan, [facility] [address] [id number] [address] [place] [id number] Jan, Moderate persistent asthma w ithout complication J45.40 and Hypoxemia R09.02 [facility] [address] [id number] [address] [place] [id number] 11 Jan, 2017 Moderate persistent asthma w ithout complication J45.40 and Hypoxemia R09.02 [facility] [address] [id number] [address] [place] [id number] Jan, [facility] [address] [id number] [address] [place] [id number] Dec, Acute non-recurrent maxillar y sinusitis J01.00 [facility] [address] [id number] [address] [place] [id number] Dec, Chronic obstructive pulmonar y disease, unspecified J44.9 [facility] [address] [id number] [address] [place] [id number] Dec, [facility] [address] [id number] [address] [place] [id number] Dec, Mild persistent asthma witho ut complication J45.30 and Other chronic pain G89.29 [facility] [address] [id number] [address] [place] [id number] Nov, [facility] [address] [id number] [address] [place] [id number] Nov, Acute non-recurrent maxillar y sinusitis J01.00 [facility] [address] [id number] [address] [place] [id number] Nov, [facility] [address] [id number] [address] [place] [id number] Nov, [facility] [address] [id number] [address] [place] [id number] Oct, [facility] [address] [facility] [id number] [address] [place] [id number] Oct, Bipolar 1 disorder, depresse d, partial remission F31.75 ; Panic disorder with agoraphobia F40.01 and Chronic post-traumatic stress disorder (PTSD) F43.12 [facility] [address] [facility] [id number] [address] [place] [id number] Oct, Acute non-recurrent maxillar y sinusitis J01.00 [facility] [address] [facility] [id number] [address] [place] [id number] Oct, [facility] [id number] [place] [id number] Oct, Diabetes E11.9 [facility] [address] [facility] [id number] [address] [place] [id number] September, Diabetes E11.9 [facility] [address] [facility] [id number] [address] [place] [id number] September, Diabetes E11.9 and Sinus tac hycardia R00.0 [facility] [address] [facility] [id number] [address] [place] [id number] September, [facility] [address] [facility] [id number] [address] [place] [id number] September, [facility] [address] [facility] [id number] [address] [place] [id number] Aug, Diabetes E11.9 and Lumbago w ith sciatica, right side M54.41 [facility] [address] [facility] [id number] [address] [place] [phone] Aug, [facility] [address] [facility] [id number] [address] [place] [id number] Jul, Bipolar 1 disorder, depresse d, moderate F31.32 ; Panic disorder with agoraphobia F40.01 and Chronic post-traumatic stress disorder (PTSD) F43.12 [facility] [address] [facility] [id number] [address] [place] [id number] Jul, Sore throat J02.9 [facility] [address] [facility] [id number] [address] [place] [id number] Jul, [facility] [address] [facility] [id number] [address] [place] [id number] Jul, [facility] [address] [facility] [id number] [address] [place] [id number] Jul, [facility] [address] [facility] [id number] [address] [place] [id number] Jul, [facility] [address] [facility] [id number] [address] [place] [id number] Jul, Sore throat J02.9 and Pharyn gitis, unspecified etiology J02.9 [facility] [address] [id number] [address] [place] [id number] Jun, [facility] [address] [facility] [id number] [address] [place] [phone] Jun, Diabetes E11.9 [facility] [address] [facility] [id number] [address] [place] [id number] Jun, [facility] [address] [facility] [id number] [address] [place] [id number] Jun, [facility] [address] [facility] [id number] [address] [place] [id number] Jun, [facility] [address] [facility] [id number] [address] [place] [id number] Jun, [facility] [address] [facility] [id number] [address] [place] [id number] Jun, [facility] [address] [id number] [address] [place] [id number] 15 Jun, 2016 [facility] [address] [id number] [address] [place] [phone] Jun, [facility] [address] [id number] [address] [place] [id number] Jun, [facility] [address] [id number] [address] [place] [address] May, Diabetes E11.9 ; Other chron ic pain G89.29 ; Acute recurrent maxillary sinusitis J01.01 ; Bipolar I disorder with depression F31.9 and Anxiety disorder, unspecified F41.9 [facility] [address] [id number] [address] [place] [id number] May, [facility] [address] [facility] [id number] [address] [place] [id number] May, Diabetes E11.9 ; Bipolar I d isorder with depression F31.9 ; Anxiety disorder, unspecified F41.9 ; Other chronic pain G89.29 and Acute recurrent maxillary sinusitis J01.01 [facility] [address] [id number] [address] [place] [id number] May, [facility] [address] [facility] [id number] [address] [place] [id number] May, Attention deficit hyperactiv ity disorder (ADHD), predominantly inattentive type F90.0 [facility] [address] [facility] [id number] [address] [place] [id number] May, [facility] [address] [facility] [id number] [address] [place] [id number] Apr, Attention deficit hyperactiv ity disorder (ADHD), predominantly inattentive type F90.0 and Non-seasonal allergic rhinitis due to other allergic trigger J30.89 [facility] [address] [id number] [address] [place] [id number] Apr, Bipolar 1 disorder, depresse d, moderate F31.32 ; Panic disorder with agoraphobia F40.01 and Chronic post-traumatic stress disorder (PTSD) F43.12 [facility] [address] [id number] [address] [place] [address] Apr, Dental examination Z01.20 [facility] [address] [id number] [address] [place] [id number] Mar, [facility] [address] [id number] [address] [place] [id number] Mar, [facility] [address] [id number] [address] [place] [id number] Mar, Bipolar I disorder with depr ession F31.9 and Anxiety disorder, unspecified F41.9 [facility] [address] [id number] [address] [place] [id number] 08 Mar, 2016 Panic disorder with agorapho syd F40.01 ; Bipolar 1 disorder, depressed, moderate F31.32 and Chronic post-traumatic stress disorder (PTSD) F43.12 [place] [address] [id number] [address] [place] [id number] Mar, [place] [address] [id number] [address] [place] [phone] Mar, Dental caries K02.9 [facility] [address] [facility] [id number] [address] [place] [id number] 24 Feb, 2016 Lumbago with sciatica, left side M54.42 ; Lumbago with sciatica, right side M54.41 and Other chronic pain G89.29 [facility] [address] [id number] [address] [place] [id number] 17 Feb, 2016 [facility] [address] [id number] [address] [place] [id number] 14 Feb, 2016 [facility] [address] [facility] [id number] [address] [place] [id number] 13 Feb, 2016 Bipolar I disorder with depr ession F31.9 ; PTSD (post-traumatic stress disorder) F43.10 and Mood disorder F39 [facility] [address] [facility] [id number] [address] [place] [id number] Feb, [facility] [address] [facility] [id number] [address] [place] [id number] Feb, Dental examination Z01.20 [facility] [address] [facility] [id number] [address] [place] [id number] 07 Feb, 2016 [facility] [address] [facility] [id number] [address] [place] [id number] Feb, Acute bronchitis, unspecifie d organism J20.9 [facility] [address] [facility] [id number] [address] [place] [id number] Jan, Mood disorder F39 ; Migraine without aura and without status migrainosus, not intractable G43.009 ; Irritable bowel syndrome, unspecified type K58.9 ; Diabetes E11.9 and Encounter for immunization Z23 [facility] [address] [facility] [id number] [address] [place] [id number] 15 Jan, 2016 [facility] [address] [facility] [id number] [address] [place] [phone] Jan, [facility] [address] [place] [id number] [address] [place] [id number] Jan, [facility] [address] [facility] [id number] [address] [place] [id number] Jan, [facility] [address] [place] [id number] [address] [place] [phone] Jan, [facility] [address] [facility] [id number] [address] [place] [id number] Dec, Bipolar I disorder with depr ession F31.9 ; PTSD (post-traumatic stress disorder) F43.10 and Panic disorder with agoraphobia F40.01 [facility] [address] [facility] [id number] [address] [place] [id number] Dec, Chronic obstructive pulmonar y disease, unspecified COPD type J44.9 ; Tremor R25.1 and Anxiety F41.9 [facility] [address] [id number] [address] [place] [id number] Dec, [facility] [address] [id number] [address] [place] [address] [id number] Nov, Tremors of nervous system R2 5.1 and Cramping of feet R25.2 [facility] [address] [id number] [address] [place] [phone] Nov, [facility] [address] [id number] [address] [place] [id number] Nov, [facility] [address] [facility] [id number] [address] [place] [id number] Oct, Chronic obstructive pulmonar y disease, unspecified J44.9 [facility] [address] [facility] [id number] [address] [place] [id number] Oct, [facility] [address] [id number] [address] [place] [id number] Oct, Tremor R25.1 [facility] [address] [facility] [id number] [address] [place] [id number] Oct, Bipolar I disorder with depr ession F31.9 ; Diabetes E11.9 ; PTSD (post-traumatic stress disorder) F43.10 and Panic disorder with agoraphobia F40.01 [facility] [address] [facility] [id number] [address] [place] [phone] Oct, Mood disorder F39 [facility] [address] [id number] [address] [place] [id number] September, [facility] [address] [facility] [id number] [address] [place] [id number] September, Diabetes E11.9 ; Bipolar I d isorder with depression F31.9 ; PTSD (post-traumatic stress disorder) F43.10 and Panic disorder with agoraphobia F40.01 [facility] [address] [id number] [address] [place] [address] September, Mood disorder F39 ; Schizoaf fective disorder, unspecified type F25.9 ; Arthritis M19.90 ; Tremor R25.1 ; Acute non-recurrent frontal sinusitis J01.10 and Blood in stool K92.1 [facility] [address] [id number] [address] [place] [id number] September, [facility] [address] [id number] [address] [place] [id number] September, Chronic obstructive pulmonar y disease, unspecified J44.9 [place] [address] [facility] [id number] [address] [place] [address] September, Diabetes E11.9 [place] [address] [facility] [id number] [address] [place] [id number] Aug, Other bipolar disorder F31.8 9 and Anxiety disorder, unspecified F41.9 [place] [address] [id number] [address] [place] [phone] Aug, [place] [address] [facility] [id number] [address] [place] [phone] Aug, Diabetes E11.9 [facility] [address] [facility] [id number] [address] [place] [id number] 18 Aug, 2015 [facility] [address] [facility] [id number] [address] [place] [id number] 14 Aug, 2015 Diabetes E11.9 ; Fatigue R53 .83 and Dizziness R42 [facility] [address] [id number] [address] [place] [id number] 13 Aug, 2015 Other bipolar disorder F31.8 9 [facility] [address] [facility] [id number] [address] [place] [id number] 07 Aug, 2015 Generalized anxiety disorder F41.1 [place] [address] [facility] [id number] [address] [place] [id number] Aug, Other bipolar disorder F31.8 9 and Anxiety disorder, unspecified F41.9 [facility] [address] [id number] [address] [place] [phone] Aug, [facility] [address] [id number] [address] [place] [phone] 29 Jul, 2015 [facility] [address] [id number] [address] [place] [phone] Jul, [facility] [address] [id number] [address] [place] [id number] Jul, Bronchitis J40 [facility] [address] [facility] [id number] [address] [place] [id number] Jul, Anxiety disorder F41.9 [facility] [address] [facility] [id number] [address] [place] [id number] Jul, Other bipolar disorder F31.8 9 and Anxiety disorder, unspecified F41.9 [facility] [address] [id number] [address] [place] [id number] 18 Jul, 2015 Other bipolar disorder F31.8 9 and Fibromyalgia M79.7 [facility] [address] [facility] [id number] [address] [place] [phone] Jul, [facility] [address] [facility] [id number] [address] [place] [id number] Jul, [facility] [address] [id number] [address] [place] [id number] 08 Jul, 2015 [facility] [address] [facility] [id number] [address] [place] [id number] 08 Jul, 2015 Other bipolar disorder F31.8 9 and Anxiety disorder, unspecified F41.9 [facility] [address] [facility] [id number] [address] [place] [id number] 25 Jun, 2015 GERD (gastroesophageal reflu x disease) K21.9 [facility] [address] [facility] [id number] [address] [place] [phone] Jun, [facility] [address] [address] May, [facility] [address] [address] May, Diabetes E11.9 ; Back pain M 54.9 ; GERD (gastroesophageal reflux disease) K21.9 ; Hypertension I10 and Peripheral neuropathy G62.9 [facility] [address] [address] Mar, [facility] [address] [address] Mar, [facility] [address] [address] Mar, Acute sinusitis J01.90 and O titis media, left H66.92 [facility] [address] [id number] Feb, [facility] [address] [id number] Feb, [facility] [address] [id number] Feb, [facility] [address] [address] Feb, [facility] [address] [place] [id number] [address] [place] [address] Jan, [facility] [address] [place] [id number] [place] [address] Jan, Diabetes 250.00 and Back higinio n 724.5 [facility] [address] [place] [id number] [place] [phone] Jan, [facility] [address] [place] [id number] [place] [address] Dec, Diabetes 250.00 ; Benign ess ential hypertension 401.1 and Allergic rhinitis 477.9 [facility] [address] [place] [id number] [address] [place] [id number] Dec, [facility] [address] [place] [id number] [address] [place] [id number] Dec, [facility] [address] [place] [id number] [address] [place] [address] Dec, Psychosis 298.9 [facility] [address] [place] [id number] [place] [address] Dec, Medication side effect 995.2 0 and Generalized anxiety disorder 300.02 [facility] [address] [place] [id number] [place] [address] Dec, Acquired cognitive dysfuncti on 294.9 [facility] [address] [place] [id number] [place] [phone] Dec, [facility] [address] [id number] Dec, Unspecified myalgia and myos itis 729.1 and Generalized anxiety disorder 300.02 [facility] [address] [place] [id number] [address] [place] [id number] Nov, [facility] [address] [place] [id number] [address] [place] [phone] Nov, [facility] [address] [place] [id number] [address] [place] [id number] Nov, [facility] [address] [place] [id number] [address] [place] [id number] Nov, Upper respiratory infection 465.9 and Chronic airway obstruction, not elsewhere classified 496 [facility] [address] [place] [id number] [address] [place] [address] Nov, Hyponatremia 276.1 [facility] [address] [place] [id number] [address] [place] [id number] Oct, [facility] [address] [id number] [address] [place] [id number] 12 Oct, 2014 [facility] [address] [id number] [address] [place] [id number] Oct, [facility] [address] [id number] [address] [place] [phone] Oct, [facility] [address] [facility] [id number] [address] [place] [phone] 04 Oct, 2014 Hyponatremia 276.1 [facility] [address] [id number] [address] [place] [id number] 03 Oct, 2014 [facility] [address] [facility] [id number] [address] [place] [id number] Oct, [facility] [address] [facility] [id number] [address] [place] [id number] Oct, Generalized anxiety disorder 300.02 [facility] [address] [facility] [id number] [address] [place] [id number] Oct, Generalized anxiety disorder 300.02 and Diabetes 250.00 [facility] [address] [id number] [address] [place] [id number] Aug, [facility] [address] [facility] [id number] [address] [place] [id number] Aug, [facility] [address] [facility] [id number] [address] [place] [phone] Jul, [facility] [address] [id number] [address] [place] [id number] Jul, [facility] [address] [id number] [address] [place] [id number] Jun, [facility] [address] [id number] [address] [place] [phone] Jun, [facility] [address] [facility] [id number] [address] [place] [phone] Jun, [facility] [address] [id number] [address] [place] [address], [place] [phone] Jun, [facility] [address] [id number] [address] [place] [address], [place] [address] Jun, [facility] [address] [id number] [address] [place] [address], [place] [phone] May, [facility] [address] [id number] [address] [place] [address], [place] [address] May, [facility] [address] [id number] [address] [place] [address], [place] [id number] Apr, [facility] [address] [id number] [address] [place] [address], [place] [address] Apr, [facility] [address] [id number] [address] [place] [address], [place] [address] Apr, [facility] [address] [id number] [address] [place] [address], [place] [id number] Apr, [facility] [address] [id number] [address] [place] [address], [place] [id number] Apr, [facility] [address] [id number] [address] [place] [address], [place] [address] Apr, [facility] [address] [id number] [address] [place] [phone] Apr, [facility] [address] [id number] [address] [place] [id number] Apr, [facility] [address] [id number] [address] [place] [address], [place] [phone] Feb, [facility] [address] [id number] [address] [place] [address], [place] [address] Feb, [facility] [address] [id number] [address] [place] [phone] Jan, [facility] [address] [id number] [address] [place] [phone] Jan, [facility] [address] [id number] [address] [place] [address], [place] [id number] Dec, [facility] [address] [id number] [address] [place] [address], [place] [address] Dec, [facility] [address] [id number] [address] [place] [address], [place] [address] Dec, [facility] [address] [id number] [address] [place] [address], [place] [id number] Nov, [facility] [address] [id number] [address] [place] [address], [place] [id number] Nov, [facility] [address] [id number] [address] [place] [address], [place] [address] Nov, [facility] [address] [id number] [address] [place] [address], [place] [address] Oct, [facility] [address] [id number] [address] [place] [address], [place] [address] Oct, [facility] [address] [id number] [address] [place] [address], [place] [id number] Oct, [facility] [address] [id number] [address] [place] [address], [place] [phone] September, [facility] [address] [id number] [address] [place] [address], [place] [address] September, [facility] [address] [id number] [address] [place] [address], [place] [address] September, [facility] [address] [id number] [address] [place] [address], [place] [address] Aug, [facility] [address] [id number] [address] [place] [address], [place] [address] Aug, [facility] [address] [id number] [address] [place] [address], [place] [address] Aug, [facility] [address] [id number] [address] [place] [address], [place] [id number] 16 Aug, 2011 [facility] [address] [id number] [address] [place] [address], [place] [address] Jul, [facility] [address] [id number] [address] [place] [address], [place] [id number] 21 Jun, 2011 [facility] [address] [id number] [address] [place] [address], [place] [phone] 14 Jun, 2011 [facility] [address] [id number] [address] [place] [address], [place] [id number] 13 Jun, 2011 [facility] [address] [id number] [address] [place] [address], [place] [id number] 07 Jun, 2011 [facility] [address] [id number] [address] [place] [address], [place] [id number] 03 Jun, 2011 [facility] [address] [id number] [address] [place] [address], [place] [address] May, [facility] [address] [id number] [address] [place] [address], [place] [address] May, [facility] [address] [id number] [address] [place] [address], [place] [id number] 09 May, 2011 [facility] [address] [id number] [address] [place] [address], [place] [address] May, [facility] [address] [id number] [address] [place] [address], [place] [id number] Apr, [facility] [address] [id number] [address] [place] [address], [place] [id number] Apr, [facility] [address] [id number] [address] [place] [address], [place] [id number] 05 Apr, 2011 [facility] [address] [id number] [address] [place] [address], [place] [id number] Mar, [facility] [address] [id number] [address] [place] [id number] Mar, [facility] [address] [id number] [address] [place] [id number] Mar, [facility] [address] [id number] [address] [place] [id number] Feb, [facility] [address] [id number] [address] [place] [id number] Feb, [facility] [address] [id number] [address] [place] [id number] Feb, [facility] [address] [id number] [address] [place] [id number] Nov, [facility] [address] [id number] [address] [place] [id number] September, [facility] [address] [id number] [address] [place] [id number] Aug, [facility] [address] [id number] [address] [place] [id number] Jul, [facility] [address] [id number] [address] [place] [id number] May, [facility] [address] [id number] [address] [place] [id number] Apr, [facility] [address] [id number] [address] [place] [id number] Apr, [facility] [address] [id number] [address] [place] [id number] Apr, [facility] [address] [id number] [address] [place] [id number] Apr, [facility] [address] [id number] [address] [place] [id number] Apr, IMMUNIZATIONS No Known Immunizations SOCIAL HISTORY Never Assessed REASON FOR VISIT Controlled Med Refill 02/25/17 PLAN OF CARE VITAL SIGNS MEDICATIONS Medication Instructions Dosage Frequency Start Date End Date Duration S samantha Roberts 7.5-325 MG Orally 3 times a day 1 tablet as needed 8h Feb, 28 days Active RESULTS No Results [...]
--- OUTSIDE RECORDS SUMMARY | 2019-07-17 11:18 | XMS REPORT ---
Author Author Sujey GANDHI Organization [facility] Address [address] [place] [address] Care Team Providers Care Principal Web Developer Name Role Phone WHIT GANDHI Unavailable PROBLEMS Type Condition ICD9-CM Code [id number] Code Onset Dates Condition S tatus SNOMED Code Problem Back pain M54.9 Active 314206308 Problem Diabetes E11.9 Active 41789192 Problem GERD (gastroesophageal reflux disease) K21.9 Active 595775335 Problem Hypertension I10 Active 1369954 3 Problem Anxiety disorder, unspecified F41.9 Active 393124130 Problem Other bipolar disorder F31.89 Active 91498401 Problem Fibromyalgia M79.7 Active 8355272 7 Problem Panic disorder with agoraphobia F40.01 Active 25769134 Problem Panlobular emphysema J43.1 Active 0401957 Problem Chronic obstructive pulmonary disease, unspecified J44.9 Active 31481965 Problem Akathisia G25.71 Active 231991977 Problem Lumbago with sciatica, left side M54.42 Active 461918134 Problem Migraine without aura and without status migrain osus, not intractable G43.009 Active 518914543 Problem Fibrocystic disease of right breast N60.11 Active 16388018 Problem Fibrocystic disease of left breast N60.12 Active 39682724 Problem Slow transit constipation K59.01 Acti ve 82879018 Problem Essential tremor G25.0 Active 609 146337 Problem Bipolar 1 disorder, depressed, moderate F31.32 Active 99933269 Problem Other chronic pain G89.29 Active 8 5511707 Problem Lumbago with sciatica, right side M54.41 Active 110486065 Problem Irritable bowel syndrome with constipation K58.1 Active 449142456 Problem Arthritis M19.90 Active 3951253 Problem Schizoaffective disorder, bipolar type F25.0 Active 08515093 Problem Irritable bowel syndrome with both constipation and diarrh ea K58.2 Active 90711522 Problem Attention deficit hyperactiv ity disorder (ADHD), predominantly inattentive type F90.0 Active 10861530 Problem Bipolar I disorder with depression F31.9 Active 57628913 Problem Chronic post-traumatic stress disorder (PTSD) F43. 12 Active 950322585 Problem Bipolar affective disorder, remission status unspecified F31.9 Active 94623688 Problem Mild persistent asthma without complication J45.30 Active 539177000 Problem Moderate persistent asthma without complication J4 5.40 Active 818519373 Problem Acute non-recurrent maxillary sinusitis J01.00 Active 52388564 Problem Bipolar 1 disorder, depressed, partial remission F 31.75 Active 20070164 ALLERGIES No Information ENCOUNTERS Encounter Location Date Diagnosis [place] [address] [facility] [id number] [address] [place] [id number] Nov, [place] [address] [place] [id number] [address] [place] [phone] Nov, [place] [address] [facility] [id number] [address] [place] [phone] Nov, [place] [address] [facility] [id number] [address] [place] [id number] Nov, Mild persistent asthma witho ut complication J45.30 and Irritable bowel syndrome with both constipation and diarrhea K58.2 [place] [address] [facility] [id number] [address] [place] [phone] Nov, [place] [address] [facility] [id number] [address] [place] [phone] Oct, [place] [address] [facility] [id number] [address] [place] [phone] Oct, [place] [address] [facility] [id number] [address] [place] [phone] Oct, Type 2 diabetes mellitus wit h diabetic neuropathy, unspecified whether termite treater helper insulin use E11.40 ; Diabetes E11.9 ; Slow transit constipation K59.01 ; Edema of both legs R60.0 and Dysfunction of right eustachian tube H69.81 [place] [address] [facility] [id number] [address] [place] [phone] Oct, Frequent headaches R51 [facility] [address] [id number] [address] [place] [phone] Oct, [facility] [address] [id number] [address] [place] [phone] Oct, [facility] [address] [id number] [address] [place] [phone] Oct, [facility] [address] [id number] [address] [place] [phone] Oct, [facility] [address] [id number] [address] [place] [id number] Oct, [facility] [address] [id number] [address] [place] [phone] Oct, [facility] [address] [id number] [address] [place] [phone] Oct, [facility] [address] [id number] [address] [place] [phone] Oct, [facility] [address] [facility] [id number] [address] [place] [id number] September, Frequent headaches R51 [facility] [address] [facility] [id number] [address] [place] [phone] September, Bilateral otitis media with effusion H65.93 ; Dizziness R42 and Essential tremor G25.0 [facility] [address] [id number] [address] [place] [id number] September, Chronic obstructive pulmonar y disease, unspecified COPD type J44.9 [facility] [address] [facility] [id number] [address] [place] [phone] September, Chronic obstructive pulmonar y disease, unspecified COPD type J44.9 [facility] [address] [facility] [id number] [address] [place] [phone] September, Migraine without aura and wi thout status migrainosus, not intractable G43.009 [facility] [address] [facility] [id number] [address] [place] [phone] September, [facility] [address] [facility] [id number] [address] [place] [id number] September, [facility] [address] [facility] [id number] [address] [place] [id number] September, [facility] [address] [facility] [id number] [address] [place] [id number] September, Frequent headaches R51 [facility] [address] [facility] [id number] [address] [place] [phone] Aug, [facility] [address] [place] [id number] [address] [place] [phone] Aug, Breast mass, right N63.10 [facility] [address] [place] [id number] [address] [place] [phone] Aug, Breast lump N63.0 [facility] [address] [facility] [id number] [address] [place] [id number] Aug, [facility] [address] [phone] Aug, Bipolar affective disorder, remission status unspecified F31.9 and Diabetes E11.9 [place] [address] [place] [id number] [place] [phone] Aug, Diabetes E11.9 ; Schizoaffec tive disorder, bipolar type F25.0 ; Pharyngitis due to other organism J02.8 ; Panlobular emphysema J43.1 and Irritable bowel syndrome with both constipation and diarrhea K58.2 [facility] [address] [place] [id number] [address] [place] [id number] Aug, Abnormal mammogram R92.8 [facility] [address] [place] [id number] [address] [place] [phone] Aug, [facility] [address] [place] [id number] [place] [phone] Aug, Bipolar 1 disorder, depresse d, moderate F31.32 ; Panic disorder with agoraphobia F40.01 and Chronic post-traumatic stress disorder (PTSD) F43.12 [facility] [address] [facility] [id number] [address] [place] [phone] Aug, [facility] [address] [place] [id number] [address] [place] [id number] Aug, [facility] [address] [facility] [id number] [address] [place] [phone] Aug, [facility] [address] [place] [id number] [place] [phone] Jul, [facility] [address] [place] [id number] [place] [phone] Jul, Mild persistent asthma witho ut complication J45.30 [facility] [address] [place] [id number] [address] [place] [phone] Jul, Mild persistent asthma witho ut complication J45.30 [facility] [address] [id number] 15 Jul, 2017 Bipolar affective disorder, remission status unspecified F31.9 ; Diabetes E11.9 and Irritable bowel syndrome with constipation K58.1 [facility] [address] [place] [phone] Jul, [facility] [address] [place] [id number] [address] [place] [phone] Jul, [facility] [address] [id number] 08 Jul, 2017 Frequent headaches R51 [facility] [address] [place] [id number] [address] [place] [id number] 07 Jul, 2017 [facility] [address] [place] [id number] [address] [place] [phone] Jul, [facility] [address] [place] [phone] Jul, [place] [address] [id number] Jul, Frequent headaches R51 ; Fib rocystic disease of left breast N60.12 ; Fibrocystic disease of right breast N60.11 and Diabetes E11.9 [place] [address] [address] Jul, [place] [address] [address] Jul, [place] [address] [address] Jun, Exudative tonsillitis J03.90 [place] [address] [address] 20 Jun, 2017 [place] [address] [address] 19 Jun, 2017 [place] [address] [address] 15 Jun, 2017 Mild persistent asthma witho ut complication J45.30 ; Chronic obstructive pulmonary disease, unspecified COPD type J44.9 and Exudative tonsillitis J03.90 [place] [address] [address] 13 Jun, 2017 Encounter for immunization Z 23 [place] [address] [place] [id number] [address] [place] [phone] Jun, [place] [address] [address] Jun, [place] [address] [id number] 09 Jun, 2017 [facility] [address] [place] [id number] [place] [phone] 06 Jun, 2017 Tonsillitis J03.90 [facility] [address] [id number] 05 Jun, 2017 [facility] [address] [id number] 03 Jun, 2017 Acute non-recurrent maxillar y sinusitis J01.00 [facility] [address] [id number] 02 Jun, 2017 [facility] [address] [address] May, [place] [address] [address] May, [place] [address] [address] May, GERD (gastroesophageal reflu x disease) K21.9 [place] [address] [address] May, Migraine without aura and wi thout status migrainosus, not intractable G43.009 [place] [address] [address] May, [place] [address] [address] May, [place] [address] [address] May, Panlobular emphysema J43.1 a nd Acute non-recurrent maxillary sinusitis J01.00 [place] [address] [address] May, Bipolar 1 disorder, depresse d, moderate F31.32 ; Panic disorder with agoraphobia F40.01 and Akathisia G25.71 [place] [address] [address] Apr, [facility] [address] [id number] [address] [place] [id number] Apr, [facility] [address] [facility] [id number] [address] [place] [phone] Apr, Acute non-recurrent maxillar y sinusitis J01.00 [facility] [address] [facility] [id number] [address] [place] [phone] 07 Apr, 2017 Panlobular emphysema J43.1 [facility] [address] [id number] [address] [place] [phone] 04 Apr, 2017 [facility] [address] [facility] [id number] [address] [place] [id number] 04 Apr, 2017 Sore throat J02.9 and Exudat minoo tonsillitis J03.90 [facility] [address] [facility] [id number] [address] [place] [phone] 17 Mar, 2017 [facility] [address] [facility] [id number] [address] [place] [id number] 15 Mar, 2017 Acute non-recurrent maxillar y sinusitis J01.00 [facility] [address] [facility] [id number] [address] [place] [id number] Mar, [facility] [address] [facility] [id number] [address] [place] [phone] 09 Mar, 2017 Panlobular emphysema J43.1 a nd Diabetes E11.9 [facility] [address] [facility] [id number] [address] [place] [phone] 06 Mar, 2017 [facility] [address] [facility] [id number] [address] [place] [phone] Feb, Wheezing R06.2 and Acute rec urrent pansinusitis J01.41 [facility] [address] [facility] [id number] [address] [place] [phone] Feb, [facility] [address] [facility] [id number] [address] [place] [id number] Feb, Acute non-recurrent maxillar y sinusitis J01.00 [facility] [address] [id number] [address] [place] [id number] 16 Feb, 2017 Chronic obstructive pulmonar y disease, unspecified J44.9 [facility] [address] [id number] [address] [place] [phone] Feb, Hypoxemia R09.02 and Chronic obstructive pulmonary disease, unspecified J44.9 [facility] [address] [id number] [address] [place] [id number] 28 Jan, 2017 Bipolar 1 disorder, depresse d, moderate F31.32 ; Panic disorder with agoraphobia F40.01 ; Chronic post-traumatic stress disorder (PTSD) F43.12 ; Diabetes E11.9 and Moderate persistent asthma without complication J45.40 [place] [address] [id number] [address] [place] [phone] Jan, [facility] [address] [id number] [address] [place] [phone] 19 Jan, 2017 Acute non-recurrent maxillar y sinusitis J01.00 [facility] [address] [id number] [address] [place] [id number] 18 Jan, 2017 [facility] [address] [id number] [address] [place] [id number] 18 Jan, 2017 [facility] [address] [id number] [address] [place] [phone] Jan, Moderate persistent asthma w [facility] complication J45.40 and Hypoxemia R09.02 [facility] [address] [id number] [address] [place] [phone] 11 Jan, 2017 Moderate persistent asthma w [facility] complication J45.40 and Hypoxemia R09.02 [facility] [address] [id number] [address] [place] [phone] Jan, [facility] [address] [facility] [id number] [address] [place] [id number] Dec, Acute non-recurrent maxillar y sinusitis J01.00 [facility] [address] [id number] [address] [place] [id number] Dec, Chronic obstructive pulmonar y disease, unspecified J44.9 [facility] [address] [id number] [address] [place] [id number] Dec, [facility] [address] [id number] [address] [place] [phone] Dec, Mild persistent asthma witho ut complication J45.30 and Other chronic pain G89.29 [facility] [address] [id number] [address] [place] [id number] Nov, [facility] [address] [id number] [address] [place] [id number] Nov, Acute non-recurrent maxillar y sinusitis J01.00 [facility] [address] [id number] [address] [place] [phone] Nov, [facility] [address] [id number] [address] [place] [phone] Nov, [facility] [address] [id number] [address] [place] [id number] Oct, [facility] [address] [id number] [address] [place] [id number] Oct, Bipolar 1 disorder, depresse d, partial remission F31.75 ; Panic disorder with agoraphobia F40.01 and Chronic post-traumatic stress disorder (PTSD) F43.12 [facility] [address] [id number] [address] [place] [phone] Oct, Acute non-recurrent maxillar y sinusitis J01.00 [facility] [address] [id number] [address] [place] [phone] Oct, [facility] [address] [facility] [id number] [address] [place] [id number] Oct, Diabetes E11.9 [facility] [address] [facility] [id number] [address] [place] [id number] September, Diabetes E11.9 [facility] [address] [facility] [id number] [address] [place] [id number] September, Diabetes E11.9 and Sinus tac hycardia R00.0 [facility] [address] [facility] [id number] [address] [place] [id number] September, [facility] [address] [facility] [id number] [address] [place] [phone] September, [facility] [address] [facility] [id number] [address] [place] [id number] Aug, Diabetes E11.9 and Lumbago w ith sciatica, right side M54.41 [facility] [address] [facility] [id number] [address] [place] [phone] Aug, [facility] [address] [facility] [id number] [address] [place] [phone] Jul, Bipolar 1 disorder, depresse d, moderate F31.32 ; Panic disorder with agoraphobia F40.01 and Chronic post-traumatic stress disorder (PTSD) F43.12 [facility] [address] [facility] [id number] [address] [place] [id number] Jul, Sore throat J02.9 [facility] [address] [facility] [id number] [address] [place] [phone] Jul, [facility] [address] [facility] [id number] [address] [place] [id number] Jul, [facility] [address] [facility] [id number] [address] [place] [id number] Jul, [facility] [address] [facility] [id number] [address] [place] [id number] Jul, [facility] [address] [facility] [id number] [address] [place] [id number] Jul, Sore throat J02.9 and Pharyn gitis, unspecified etiology J02.9 [facility] [address] [id number] [address] [place] [id number] Jun, [facility] [address] [id number] [address] [place] [phone] Jun, Diabetes E11.9 [facility] [address] [id number] [address] [place] [id number] Jun, [facility] [address] [id number] [address] [place] [id number] Jun, [facility] [address] [facility] [id number] [address] [place] [id number] Jun, [facility] [facility] [address] [facility] [id number] [address] [place] [phone] Jun, [facility] [address] [facility] [id number] [address] [place] [phone] Jun, [facility] [address] [facility] [id number] [address] [place] [phone] Jun, [facility] [address] [facility] [id number] [address] [place] [id number] Jun, [facility] [address] [facility] [id number] [address] [place] [phone] Jun, [facility] [address] [facility] [id number] [address] [place] [phone] May, Diabetes E11.9 ; Bipolar I d isorder with depression F31.9 ; Other chronic pain G89.29 ; Acute recurrent maxillary sinusitis J01.01 and Anxiety disorder, unspecified F41.9 [facility] [address] [facility] [id number] [address] [place] [phone] May, [facility] [address] [facility] [id number] [address] [place] [phone] May, Diabetes E11.9 ; Bipolar I d isorder with depression F31.9 ; Anxiety disorder, unspecified F41.9 ; Other chronic pain G89.29 and Acute recurrent maxillary sinusitis J01.01 [place] [address] [facility] [id number] [address] [place] [phone] May, [place] [address] [facility] [id number] [address] [place] [id number] May, Attention deficit hyperactiv ity disorder (ADHD), predominantly inattentive type F90.0 [place] [address] [facility] [id number] [address] [place] [phone] May, [place] [address] [place] [id number] [address] [place] [phone] Apr, Attention deficit hyperactiv ity disorder (ADHD), predominantly inattentive type F90.0 and Non-seasonal allergic rhinitis due to other allergic trigger J30.89 [place] [address] [place] [id number] [address] [place] [phone] Apr, Bipolar 1 disorder, depresse d, moderate F31.32 ; Panic disorder with agoraphobia F40.01 and Chronic post-traumatic stress disorder (PTSD) F43.12 [place] [address] [place] [id number] [address] [place] [phone] Apr, Dental examination Z01.20 [place] [address] [place] [id number] [address] [place] [phone] Mar, [place] [address] [facility] [id number] [address] [place] [phone] Mar, [place] [address] [place] [id number] [address] [place] [phone] Mar, Bipolar I disorder with depr ession F31.9 and Anxiety disorder, unspecified F41.9 [place] [address] [place] [id number] [address] [place] [id number] Mar, Panic disorder with agorapho syd F40.01 ; Bipolar 1 disorder, depressed, moderate F31.32 and Chronic post-traumatic stress disorder (PTSD) F43.12 [place] [address] [place] [id number] [address] [place] [phone] Mar, [place] [address] [place] [id number] [address] [place] [phone] Mar, Dental caries K02.9 [place] [address] [place] [id number] [place] [phone] Feb, Lumbago with sciatica, left side M54.42 ; Lumbago with sciatica, right side M54.41 and Other chronic pain G89.29 [place] [address] [place] [id number] [place] [phone] 17 Feb, 2016 [place] [address] [place] [id number] [place] [phone] Feb, [place] [address] [phone] Feb, Bipolar I disorder with depr ession F31.9 ; PTSD (post-traumatic stress disorder) F43.10 and Mood disorder F39 [place] [id number] [place] [phone] Feb, [place] [address] [place] [id number] [address] [place] [id number] Feb, Dental examination Z01.20 [place] [address] [place] [id number] [address] [place] [phone] Feb, [facility] [address] [place] [id number] [address] [place] [phone] Feb, Acute bronchitis, unspecifie d organism J20.9 [facility] [address] [facility] [id number] [address] [place] [phone] Jan, Mood disorder F39 ; Migraine without aura and without status migrainosus, not intractable G43.009 ; Irritable bowel syndrome, unspecified type K58.9 ; Diabetes E11.9 and Encounter for immunization Z23 [facility] [address] [facility] [id number] [address] [place] [phone] Jan, [facility] [address] [facility] [id number] [address] [place] [phone] Jan, [facility] [address] [place] [id number] [address] [place] [phone] Jan, [facility] [address] [place] [id number] [address] [place] [phone] Jan, [facility] [address] [facility] [id number] [address] [place] [phone] Jan, [facility] [address] [place] [id number] [address] [place] [id number] Dec, Bipolar I disorder with depr ession F31.9 ; PTSD (post-traumatic stress disorder) F43.10 and Panic disorder with agoraphobia F40.01 [facility] [address] [place] [phone] Dec, Chronic obstructive pulmonar y disease, unspecified COPD type J44.9 ; Tremor R25.1 and Anxiety F41.9 [facility] [address] [place] [id number] [address] [place] [phone] Dec, [facility] [address] [place] [id number] [address] [place] [phone] Nov, Tremors of nervous system R2 5.1 and Cramping of feet R25.2 [facility] [address] [facility] [id number] [address] [place] [phone] Nov, [facility] [address] [place] [id number] [address] [place] [phone] Nov, [facility] [address] [place] [id number] [address] [place] [phone] Oct, Chronic obstructive pulmonar y disease, unspecified J44.9 [facility] [address] [place] [id number] [address] [place] [phone] Oct, [facility] [address] [facility] [id number] [address] [place] [phone] Oct, Tremor R25.1 [facility] [address] [facility] [id number] [address] [place] [phone] Oct, Bipolar I disorder with depr ession F31.9 ; Diabetes E11.9 ; PTSD (post-traumatic stress disorder) F43.10 and Panic disorder with agoraphobia F40.01 [facility] [address] [facility] [id number] [address] [place] [phone] Oct, Mood disorder F39 [place] [address] [facility] [id number] [address] [place] [phone] September, [place] [address] [place] [id number] [address] [place] [phone] September, Diabetes E11.9 ; Bipolar I d isorder with depression F31.9 ; PTSD (post-traumatic stress disorder) F43.10 and Panic disorder with agoraphobia F40.01 [place] [address] [facility] [id number] [address] [place] [phone] September, Mood disorder F39 ; Schizoaf fective disorder, unspecified type F25.9 ; Arthritis M19.90 ; Tremor R25.1 ; Acute non-recurrent frontal sinusitis J01.10 and Blood in stool K92.1 [facility] [address] [facility] [id number] [address] [place] [phone] September, [place] [address] [facility] [id number] [address] [place] [phone] September, Chronic obstructive pulmonar y disease, unspecified J44.9 [facility] [address] [facility] [id number] [address] [place] [id number] September, Diabetes E11.9 [place] [address] [place] [id number] [address] [place] [phone] Aug, Other bipolar disorder F31.8 9 and Anxiety disorder, unspecified F41.9 [facility] [address] [id number] [address] [place] [phone] Aug, [facility] [address] [id number] [address] [place] [phone] Aug, Diabetes E11.9 [facility] [address] [id number] [address] [place] [id number] 18 Aug, 2015 [facility] [address] [id number] [address] [place] [id number] 14 Aug, 2015 Diabetes E11.9 ; Fatigue R53 .83 and Dizziness R42 [facility] [address] [id number] [address] [place] [phone] 13 Aug, 2015 Other bipolar disorder F31.8 9 [facility] [address] [id number] [address] [place] [phone] 07 Aug, 2015 Generalized anxiety disorder F41.1 [facility] [address] [id number] [address] [place] [phone] 07 Aug, 2015 Other bipolar disorder F31.8 9 and Anxiety disorder, unspecified F41.9 [facility] [address] [id number] [address] [place] [phone] Aug, [facility] [address] [id number] [address] [place] [phone] Jul, [facility] [address] [id number] [address] [place] [phone] Jul, [facility] [address] [id number] [address] [place] [phone] Jul, Bronchitis J40 [facility] [address] [id number] [address] [place] [phone] Jul, Anxiety disorder F41.9 [facility] [address] [id number] [address] [place] [phone] Jul, Other bipolar disorder F31.8 9 and Anxiety disorder, unspecified F41.9 [facility] [address] [id number] [address] [place] [phone] Jul, Other bipolar disorder F31.8 9 and Fibromyalgia M79.7 [facility] [address] [id number] [address] [place] [phone] Jul, [facility] [address] [facility] [id number] [address] [place] [phone] Jul, [facility] [address] [id number] [address] [place] [phone] Jul, [facility] [address] [facility] [id number] [address] [place] [phone] Jul, Other bipolar disorder F31.8 9 and Anxiety disorder, unspecified F41.9 [facility] [address] [facility] [id number] [address] [place] [phone] Jun, GERD (gastroesophageal reflu x disease) K21.9 [facility] [address] [facility] [id number] [address] [place] [id number] Jun, [facility] [address] [facility] [id number] [address] [place] [phone] May, [facility] [address] [facility] [id number] [address] [place] [phone] May, Diabetes E11.9 ; Back pain M 54.9 ; GERD (gastroesophageal reflux disease) K21.9 ; Hypertension I10 and Peripheral neuropathy G62.9 [facility] [address] [facility] [id number] [address] [place] [phone] Mar, [facility] [address] [facility] [id number] [address] [place] [phone] Mar, [facility] [address] [facility] [id number] [address] [place] [id number] Mar, Acute sinusitis J01.90 and O titis media, left H66.92 [facility] [address] [id number] [address] [place] [phone] Feb, [facility] [address] [facility] [id number] [address] [place] [id number] Feb, [facility] [address] [facility] [id number] [address] [place] [phone] Feb, [facility] [address] [facility] [id number] [address] [place] [phone] Feb, [facility] [address] [facility] [id number] [address] [place] [phone] Jan, [facility] [address] [facility] [id number] [address] [place] [phone] Jan, Diabetes 250.00 and Back higinio n 724.5 [facility] [address] [facility] [id number] [address] [place] [phone] Jan, [facility] [address] [facility] [id number] [address] [place] [phone] Dec, Diabetes 250.00 ; Benign ess ential hypertension 401.1 and Allergic rhinitis 477.9 [facility] [address] [facility] [id number] [address] [place] [id number] Dec, [facility] [address] [facility] [id number] [address] [place] [phone] Dec, [facility] [address] [facility] [id number] [address] [place] [phone] Dec, Psychosis 298.9 [facility] [address] [facility] [id number] [address] [place] [id number] Dec, Medication side effect 995.2 0 and Generalized anxiety disorder 300.02 [facility] [address] [facility] [id number] [address] [place] [phone] Dec, Acquired cognitive dysfuncti on 294.9 [facility] [address] [facility] [id number] [address] [place] [phone] Dec, [facility] [address] [facility] [id number] [address] [place] [phone] Dec, Unspecified myalgia and myos itis 729.1 and Generalized anxiety disorder 300.02 [facility] [address] [id number] [address] [place] [id number] Nov, [facility] [address] [facility] [id number] [address] [place] [phone] Nov, [facility] [address] [id number] [address] [place] [phone] Nov, [facility] [address] [facility] [id number] [address] [place] [phone] Nov, Upper respiratory infection 465.9 and Chronic airway obstruction, not elsewhere classified 496 [facility] [address] [facility] [id number] [address] [place] [id number] Nov, Hyponatremia 276.1 [facility] [address] [facility] [id number] [address] [place] [id number] Oct, [facility] [address] [facility] [id number] [address] [place] [id number] Oct, [facility] [address] [facility] [id number] [address] [place] [phone] Oct, [facility] [address] [facility] [id number] [address] [place] [phone] Oct, [facility] [address] [facility] [id number] [address] [place] [phone] Oct, Hyponatremia 276.1 [facility] [address] [facility] [id number] [address] [place] [phone] Oct, [facility] [address] [facility] [id number] [address] [place] [id number] Oct, [facility] [address] [facility] [id number] [address] [place] [id number] Oct, Generalized anxiety disorder 300.02 [facility] [address] [id number] [address] [place] [id number] Oct, Generalized anxiety disorder 300.02 and Diabetes 250.00 [facility] [address] [id number] [address] [place] [phone] 14 Aug, 2014 [facility] [address] [id number] [address] [place] [phone] Aug, [facility] [address] [id number] [address] [place] [phone] Jul, [facility] [address] [id number] [address] [place] [phone] Jul, [facility] [address] [id number] [address] [place] [phone] Jun, [facility] [address] [id number] [address] [place] [phone] Jun, [facility] [address] [id number] [address] [place] [id number] Jun, [facility] [address] [id number] [address] [place] [address], [place] [phone] Jun, [facility] [address] [id number] [address] [place] [phone] Jun, [facility] [address] [id number] [address] [place] [phone] May, [facility] [address] [id number] [address] [place] [phone] May, [facility] [address] [id number] [address] [place] [phone] Apr, [facility] [address] [id number] [address] [place] [phone] Apr, [facility] [address] [id number] [address] [place] [id number] Apr, [facility] [address] [id number] [address] [place] [address], [place] [id number] Apr, [facility] [address] [id number] [address] [place] [address], [place] [id number] Apr, [facility] [address] [id number] [address] [place] [address], [place] [id number] Apr, [facility] [address] [id number] [address] [place] [address], [place] [id number] Apr, [facility] [address] [id number] [address] [place] [address], [place] [id number] Apr, [facility] [address] [id number] [address] [place] [address], [place] [id number] Feb, [facility] [address] [id number] [address] [place] [address], [place] [id number] Feb, [facility] [address] [id number] [address] [place] [address], [place] [id number] Jan, [facility] [address] [id number] [address] [place] [address], [place] [id number] Jan, [facility] [address] [id number] [address] [place] [address], [place] [id number] Dec, [facility] [address] [id number] [address] [place] [address], [place] [id number] Dec, [facility] [address] [id number] [address] [place] [address], [place] [id number] Dec, [facility] [address] [id number] [address] [place] [address], [place] [id number] Nov, [facility] [address] [id number] [address] [place] [address], [place] [id number] Nov, [facility] [address] [id number] [address] [place] [address], [place] [id number] Nov, [facility] [address] [id number] [address] [place] [address] [place] [id number] Oct, [facility] [address] [id number] [address] [place] [address], [place] [id number] Oct, [facility] [address] [id number] [address] [place] [address], [place] [id number] Oct, [facility] [address] [id number] [address] [place] [address], [place] [id number] September, [facility] [address] [id number] [address] [place] [address], [place] [id number] September, [facility] [address] [id number] [address] [place] [address], [place] [id number] September, [facility] [address] [id number] [address] [place] [address], [place] [id number] Aug, [facility] [address] [id number] [address] [place] [address], [place] [id number] Aug, [facility] [address] [id number] [address] [place] [address], [place] [id number] Aug, [facility] [facility] [address] [id number] [address] [place] [address], [place] [id number] 16 Aug, 2011 [facility] [address] [id number] [address] [place] [address], [place] [id number] Jul, [facility] [address] [id number] [address] [place] [address], [place] [id number] Jun, [facility] [address] [id number] [address] [place] [address], [place] [id number] 14 Jun, 2011 [facility] [address] [id number] [address] [place] [address], [place] [id number] 13 Jun, 2011 [facility] [address] [id number] [address] [place] [address], [place] [id number] 07 Jun, 2011 [facility] [address] [id number] [address] [place] [address], [place] [id number] 03 Jun, 2011 [facility] [address] [id number] [address] [place] [address], [place] [id number] May, [facility] [address] [id number] [address] [place] [address], [place] [id number] May, [facility] [address] [id number] [address] [place] [address], [place] [id number] May, [facility] [address] [id number] [address] [place] [address], [place] [id number] May, [facility] [address] [id number] [address] [place] [address], [place] [id number] Apr, [facility] [address] [id number] [address] [place] [address], [place] [id number] Apr, [facility] [address] [id number] [address] [place] [address], [place] [id number] Apr, [facility] [address] [id number] [address] [place] [address], [place] [id number] Mar, [facility] [address] [id number] [address] [place] [address], [place] [id number] Mar, [facility] [address] [id number] [address] [place] [address], [place] [id number] Mar, [facility] [address] [id number] [address] [place] [id number] Feb, [facility] [address] [id number] [address] [place] [id number] Feb, [facility] [address] [id number] [address] [place] [address], [place] [id number] Feb, [facility] [address] [id number] [address] [place] [address], [place] [id number] Nov, [facility] [address] [id number] [address] [place] [address], [place] [id number] September, [facility] [address] [id number] [address] [place] [id number] Aug, [facility] [address] [facility] [id number] [address] [place] [id number] Jul, [facility] [address] [facility] [id number] [address] [place] [id number] May, [facility] [address] [facility] [id number] [address] [place] [id number] Apr, [facility] [address] [facility] [id number] [address] [place] [id number] Apr, [facility] [address] [facility] [id number] [address] [place] [id number] Apr, [facility] [address] [facility] [id number] [address] [place] [id number] Apr, [facility] [address] [facility] [id number] [address] [place] [id number] Apr, IMMUNIZATIONS No Known Immunizations SOCIAL HISTORY Never Assessed REASON FOR VISIT Pt education PLAN OF CARE VITAL SIGNS MEDICATIONS Unknown [...]
--- OUTSIDE RECORDS SUMMARY | 2019-07-17 11:18 | XMS REPORT ---
Author Author Sujey GANDHI Organization [facility] Address [address] [place] [address] Care Team Providers Care Operating System Programmer Name Role Phone WHIT GANDHI Unavailable PROBLEMS Type Condition ICD9-CM Code BBU31-BV Code Onset Dates Condition S tatus SNOMED Code Problem Back pain M54.9 Active 094403033 Problem Diabetes E11.9 Active 93904093 Problem GERD (gastroesophageal reflux disease) K21.9 Active 477233339 Problem Hypertension I10 Active 6102226 3 Problem Anxiety disorder, unspecified F41.9 Active 284166627 Problem Other bipolar disorder F31.89 Active 59836286 Problem Fibromyalgia M79.7 Active 3211897 7 Problem Panic disorder with agoraphobia F40.01 Active 29957838 Problem Panlobular emphysema J43.1 Active 5616418 Problem Chronic obstructive pulmonary disease, unspecified J44.9 Active 81050465 Problem Akathisia G25.71 Active 044785453 Problem Lumbago with sciatica, left side M54.42 Active 247620929 Problem Migraine without aura and without status migrain osus, not intractable G43.009 Active 981251435 Problem Fibrocystic disease of right breast N60.11 Active 81421138 Problem Fibrocystic disease of left breast N60.12 Active 60562572 Problem Slow transit constipation K59.01 Acti ve 64818886 Problem Essential tremor G25.0 Active 609 291569 Problem Bipolar 1 disorder, depressed, moderate F31.32 Active 34835065 Problem Other chronic pain G89.29 Active 8 7488849 Problem Lumbago with sciatica, right side M54.41 Active 908953980 Problem Irritable bowel syndrome with constipation K58.1 Active 819230253 Problem Arthritis M19.90 Active 6566293 Problem Schizoaffective disorder, bipolar type F25.0 Active 21127641 Problem Irritable bowel syndrome with both constipation and diarrh ea K58.2 Active 17738965 Problem Attention deficit hyperactiv ity disorder (ADHD), predominantly inattentive type F90.0 Active 07319135 Problem Bipolar I disorder with depression F31.9 Active 40261818 Problem Chronic post-traumatic stress disorder (PTSD) F43. 12 Active 691739599 Problem Bipolar affective disorder, remission status unspecified F31.9 Active 97481636 Problem Mild persistent asthma without complication J45.30 Active 548920626 Problem Moderate persistent asthma without complication J4 5.40 Active 455587854 Problem Acute non-recurrent maxillary sinusitis J01.00 Active 10667274 Problem Bipolar 1 disorder, depressed, partial remission F 31.75 Active 49924690 ALLERGIES Substance Reaction Event Type Date Status Penicillin V Potassium Unknown Drug Allergy Jul, Activ e Effexor anaphylaxis Drug Allergy Jul, Active Darvocet-N 50 Unknown Drug Allergy Jul, Active Cefdinir Swelling Drug Allergy Jul, Active Benadryl vomiting/swelling Drug Allergy Jul, Active ENCOUNTERS Encounter Location Date Diagnosis [facility] [address] [facility] [id number] [address] [place] [address] Nov, [facility] [address] [facility] [id number] [address] [place] [address] Nov, [facility] [address] [facility] [id number] [address] [place] [address] Nov, [facility] [address] [facility] [id number] [address] [place] [address] Nov, Mild persistent asthma witho ut complication J45.30 and Irritable bowel syndrome with both constipation and diarrhea K58.2 [facility] [address] [facility] [id number] [address] [place] [address] Nov, [facility] [address] [id number] [address] [place] [address] Oct, [facility] [address] [facility] [id number] [address] [place] [address] Oct, [facility] [address] [facility] [id number] [address] [place] [address] Oct, Type 2 diabetes mellitus wit h diabetic neuropathy, unspecified 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 watermelon inspector insulin use E11.40 ; Diabetes E11.9 ; Slow transit constipation K59.01 ; Edema of both legs R60.0 and Dysfunction of right eustachian tube H69.81 [facility] [address] [id number] [address] [place] [address] Oct, Frequent headaches R51 [facility] [address] [id number] [address] [place] [phone] Oct, [facility] [address] [id number] [address] [place] [address] Oct, [facility] [address] [id number] [address] [place] [address] Oct, [facility] [address] [id number] [address] [place] [id number] Oct, [facility] [address] [facility] [id number] [address] [place] [phone] Oct, [facility] [address] [id number] [address] [place] [address] Oct, [facility] [address] [facility] [id number] [address] [place] [address] Oct, [facility] [address] [facility] [id number] [address] [place] [address] Oct, [facility] [address] [facility] [id number] [address] [place] [address] September, Frequent headaches R51 [facility] [address] [facility] [id number] [address] [place] [address] September, Bilateral otitis media with effusion H65.93 ; Dizziness R42 and Essential tremor G25.0 [facility] [address] [facility] [id number] [address] [place] [address] September, Chronic obstructive pulmonar y disease, unspecified COPD type J44.9 [facility] [address] [facility] [id number] [address] [place] [address] September, Chronic obstructive pulmonar y disease, unspecified COPD type J44.9 [facility] [address] [facility] [id number] [address] [place] [address] September, Migraine without aura and wi thout status migrainosus, not intractable G43.009 [facility] [address] [place] [id number] [address] [place] [address] September, [facility] [address] [place] [id number] [address] [place] [address] September, [facility] [address] [place] [id number] [address] [place] [address] September, [facility] [address] [place] [id number] [place] [address] September, Frequent headaches R51 [facility] [address] [place] [id number] [address] [place] [address] Aug, [facility] [address] [place] [id number] [address] [place] [address] Aug, Breast mass, right N63.10 [facility] [address] [place] [id number] [place] [address] Aug, Breast lump N63.0 [facility] [address] [place] [id number] [address] [place] [address] Aug, [facility] [address] [place] [id number] [address] [place] [address] Aug, Bipolar affective disorder, remission status unspecified F31.9 and Diabetes E11.9 [facility] [address] [place] [id number] [address] [place] [address] Aug, Diabetes E11.9 ; Schizoaffec tive disorder, bipolar type F25.0 ; Pharyngitis due to other organism J02.8 ; Panlobular emphysema J43.1 and Irritable bowel syndrome with both constipation and diarrhea K58.2 [facility] [address] [place] [id number] [address] [place] [address] Aug, Abnormal mammogram R92.8 [facility] [address] [facility] [id number] [address] [place] [address] Aug, [facility] [address] [facility] [id number] [address] [place] [address] Aug, Bipolar 1 disorder, depresse d, moderate F31.32 ; Panic disorder with agoraphobia F40.01 and Chronic post-traumatic stress disorder (PTSD) F43.12 [facility] [address] [facility] [id number] [address] [place] [address] Aug, [facility] [address] [facility] [id number] [place] [address] Aug, [facility] [address] [place] [id number] [address] [place] [address] Aug, [facility] [address] [facility] [id number] [address] [place] [address] Jul, [facility] [address] [place] [id number] [address] [place] [address] Jul, Mild persistent asthma witho ut complication J45.30 [facility] [address] [facility] [id number] [address] [place] [address] Jul, Mild persistent asthma witho ut complication J45.30 [facility] [address] [place] [id number] [address] [place] [address] Jul, Bipolar affective disorder, remission status unspecified F31.9 ; Diabetes E11.9 and Irritable bowel syndrome with constipation K58.1 [facility] [address] [facility] [id number] [address] [place] [address] Jul, [facility] [address] [facility] [id number] [address] [place] [address] Jul, [facility] [address] [facility] [id number] [address] [place] [address] Jul, Frequent headaches R51 [facility] [address] [facility] [id number] [address] [place] [address] Jul, [facility] [address] [address] Jul, [facility] [address] [facility] [id number] [address] [place] [address] Jul, [place] [address] [facility] [id number] [address] Jul, Frequent headaches R51 ; Fib rocystic disease of left breast N60.12 ; Fibrocystic disease of right breast N60.11 and Diabetes E11.9 [place] [address] [facility] [id number] [address] Jul, [place] [address] [address] Jul, [place] [address] [address] Jun, Exudative tonsillitis J03.90 [place] [address] [address] 20 Jun, 2017 [place] [address] [address] Jun, [place] [address] [address] 15 Jun, 2017 Mild persistent asthma witho ut complication J45.30 ; Chronic obstructive pulmonary disease, unspecified COPD type J44.9 and Exudative tonsillitis J03.90 [place] [address] [address] 13 Jun, 2017 Encounter for immunization Z 23 [place] [address] [place] [id number] [place] [address] Jun, [place] [address] [address] Jun, [facility] [address] [facility] [id number] [address] [place] [address] Jun, [facility] [address] [facility] [id number] [address] [place] [address] 06 Jun, 2017 Tonsillitis J03.90 [facility] [address] [facility] [id number] [address] [place] [address] Jun, [facility] [address] [address] Jun, Acute non-recurrent maxillar y sinusitis J01.00 [facility] [address] [place] [id number] [place] [address] 02 Jun, 2017 [facility] [address] [address] May, [facility] [address] [address] May, [facility] [address] [address] May, GERD (gastroesophageal reflu x disease) K21.9 [facility] [address] [place] [id number] [place] [address] May, Migraine without aura and wi thout status migrainosus, not intractable G43.009 [facility] [id number] [place] [address] May, [facility] [address] [address] May, [facility] [address] [address] May, Panlobular emphysema J43.1 a nd Acute non-recurrent maxillary sinusitis J01.00 [facility] [address] [place] [id number] [place] [address] May, Bipolar 1 disorder, depresse d, moderate F31.32 ; Panic disorder with agoraphobia F40.01 and Akathisia G25.71 [facility] [address] [place] [id number] [address] [place] [address] Apr, [facility] [address] [place] [id number] [address] [place] [address] Apr, [place] [address] [address] Apr, Acute non-recurrent maxillar y sinusitis J01.00 [place] [address] [address] Apr, Panlobular emphysema J43.1 [place] [address] [address] Apr, [facility] [place] [address] [address] Apr, Sore throat J02.9 and Exudat minoo tonsillitis J03.90 [place] [address] [address] 17 Mar, 2017 [place] [address] [address] 15 Mar, 2017 Acute non-recurrent maxillar y sinusitis J01.00 [place] [address] [address] Mar, [place] [address] [address] 09 Mar, 2017 Panlobular emphysema J43.1 a nd Diabetes E11.9 [place] [address] [place] [id number] [address] [place] [address] 06 Mar, 2017 [facility] [address] [place] [id number] [address] [place] [id number] Feb, Wheezing R06.2 and Acute rec urrent pansinusitis J01.41 [facility] [address] [id number] [address] [place] [address] Feb, [facility] [address] [id number] [address] [place] [address] 16 Feb, 2017 Acute non-recurrent maxillar y sinusitis J01.00 [facility] [address] [facility] [id number] [address] [place] [address] 16 Feb, 2017 Chronic obstructive pulmonar y disease, unspecified J44.9 [place] [address] [facility] [id number] [address] [place] [address] Feb, Hypoxemia R09.02 and Chronic obstructive pulmonary disease, unspecified J44.9 [place] [address] [facility] [id number] [address] [place] [address] 28 Jan, 2017 Bipolar 1 disorder, depresse d, moderate F31.32 ; Panic disorder with agoraphobia F40.01 ; Chronic post-traumatic stress disorder (PTSD) F43.12 ; Diabetes E11.9 and Moderate persistent asthma without complication J45.40 [place] [address] [facility] [id number] [address] [place] [address] 22 Jan, 2017 [place] [address] [facility] [id number] [address] [place] [address] 19 Jan, 2017 Acute non-recurrent maxillar y sinusitis J01.00 [facility] [address] [id number] [address] [place] [address] 18 Jan, 2017 [facility] [address] [id number] [address] [place] [address] 18 Jan, 2017 [place] [address] [facility] [id number] [address] [place] [address] 12 Jan, 2017 [facility] J[facility].40 and Hypoxemia R09.02 [facility] [address] [facility] [id number] [address] [place] [address] 11 Jan, 2017 Moderate persistent asthma w ithout complication J45.40 and Hypoxemia R09.02 [facility] [address] [id number] [address] [place] [address] Jan, [facility] [address] [id number] [address] [place] [address] Dec, Acute non-recurrent maxillar y sinusitis J01.00 [facility] [address] [id number] [address] [place] [address] Dec, Chronic obstructive pulmonar y disease, unspecified J44.9 [facility] [address] [id number] [address] [place] [address] Dec, [facility] [address] [id number] [address] [place] [address] Dec, Mild persistent asthma witho ut complication J45.30 and Other chronic pain G89.29 [facility] [address] [facility] [id number] [address] [place] [address] Nov, [facility] [address] [id number] [address] [place] [address] Nov, Acute non-recurrent maxillar y sinusitis J01.00 [facility] [address] [id number] [address] [place] [address] Nov, [facility] [address] [facility] [id number] [address] [place] [address] Nov, [facility] [address] [facility] [id number] [address] [place] [address] Oct, [facility] [address] [facility] [id number] [address] [place] [address] Oct, Bipolar 1 disorder, depresse d, partial remission F31.75 ; Panic disorder with agoraphobia F40.01 and Chronic post-traumatic stress disorder (PTSD) F43.12 [facility] [address] [facility] [id number] [address] [place] [address] Oct, Acute non-recurrent maxillar y sinusitis J01.00 [facility] [address] [id number] [address] [place] [address] Oct, [facility] [address] [id number] [address] [place] [address] Oct, Diabetes E11.9 [facility] [address] [facility] [id number] [address] [place] [address] September, Diabetes E11.9 [facility] [address] [id number] [address] [place] [address] September, Diabetes E11.9 and Sinus tac hycardia R00.0 [facility] [address] [facility] [id number] [address] [place] [address] September, [facility] [address] [facility] [id number] [address] [place] [address] September, [facility] [address] [facility] [id number] [address] [place] [address] Aug, Diabetes E11.9 and Lumbago w ith sciatica, right side M54.41 [facility] [address] [facility] [id number] [address] [place] [address] Aug, [facility] [address] [facility] [id number] [address] [place] [address] Jul, Bipolar 1 disorder, depresse d, moderate F31.32 ; Panic disorder with agoraphobia F40.01 and Chronic post-traumatic stress disorder (PTSD) F43.12 [facility] [address] [facility] [id number] [address] [place] [address] Jul, Sore throat J02.9 [facility] [address] [facility] [id number] [address] [place] [id number] 16 Jul, 2016 [facility] [address] [facility] [id number] [address] [place] [address] Jul, [facility] [address] [facility] [id number] [address] [place] [address] Jul, [facility] [address] [facility] [id number] [address] [place] [address] Jul, [facility] [address] [facility] [id number] [address] [place] [address] Jul, Sore throat J02.9 and Pharyn gitis, unspecified etiology J02.9 [facility] [address] [facility] [id number] [address] [place] [id number] 27 Jun, 2016 [facility] [address] [id number] [address] [place] [address] 23 Jun, 2016 Diabetes E11.9 [facility] [address] [facility] [id number] [address] [place] [address] 20 Jun, 2016 [facility] [address] [facility] [id number] [address] [place] [address] Jun, [facility] [address] [facility] [id number] [address] [place] [address] Jun, [facility] [address] [facility] [id number] [address] [place] [address] Jun, [facility] [address] [facility] [id number] [address] [place] [address] Jun, [facility] [address] [facility] [id number] [address] [place] [address] 15 Jun, 2016 [facility] [address] [facility] [id number] [address] [place] [address] Jun, [facility] [address] [facility] [id number] [address] [place] [address] Jun, [facility] [address] [facility] [id number] [address] [place] [address] May, Diabetes E11.9 ; Bipolar I d isorder with depression F31.9 ; Other chronic pain G89.29 ; Acute recurrent maxillary sinusitis J01.01 and Anxiety disorder, unspecified F41.9 [facility] [address] [place] [id number] [address] [place] [address] May, [place] [address] [place] [id number] [address] [place] [address] May, Diabetes E11.9 ; Bipolar I d isorder with depression F31.9 ; Anxiety disorder, unspecified F41.9 ; Other chronic pain G89.29 and Acute recurrent maxillary sinusitis J01.01 [place] [address] [place] [id number] [address] [place] [address] May, [place] [address] [place] [id number] [address] [place] [address] May, Attention deficit hyperactiv ity disorder (ADHD), predominantly inattentive type F90.0 [place] [address] [address] May, [place] [address] [address] Apr, Attention deficit hyperactiv ity disorder (ADHD), predominantly inattentive type F90.0 and Non-seasonal allergic rhinitis due to other allergic trigger J30.89 [place] [address] [place] [id number] [address] [place] [address] Apr, Bipolar 1 disorder, depresse d, moderate F31.32 ; Panic disorder with agoraphobia F40.01 and Chronic post-traumatic stress disorder (PTSD) F43.12 [place] [address] [place] [id number] [address] [place] [address] Apr, Dental examination Z01.20 [place] [address] [place] [id number] [address] [place] [address] Mar, [place] [address] [place] [id number] [address] [place] [address] Mar, [place] [address] [place] [id number] [address] [place] [id number] Mar, Bipolar I disorder with depr ession F31.9 and Anxiety disorder, unspecified F41.9 [facility] [address] [id number] [address] [place] [id number] 08 Mar, 2016 Panic disorder with agorapho syd F40.01 ; Bipolar 1 disorder, depressed, moderate F31.32 and Chronic post-traumatic stress disorder (PTSD) F43.12 [place] [address] [id number] [address] [place] [id number] Mar, [facility] [address] [id number] [address] [place] [phone] Mar, Dental caries K02.9 [place] [address] [facility] [id number] [address] [place] [phone] Feb, Lumbago with sciatica, left side M54.42 ; Lumbago with sciatica, right side M54.41 and Other chronic pain G89.29 [place] [address] [facility] [id number] [address] [place] [id number] Feb, [facility] [address] [id number] [address] [place] [phone] Feb, [place] [address] [place] [id number] [address] [place] [id number] Feb, Bipolar I disorder with depr ession F31.9 ; PTSD (post-traumatic stress disorder) F43.10 and Mood disorder F39 [place] [address] [id number] [address] [place] [address] Feb, [facility] [address] [id number] [address] [place] [address] Feb, Dental examination Z01.20 [facility] [address] [facility] [id number] [address] [place] [phone] 07 Feb, 2016 [facility] [address] [facility] [id number] [address] [place] [phone] 03 Feb, 2016 Acute bronchitis, unspecifie d organism J20.9 [facility] [address] [place] [id number] [address] [place] [address] Jan, Mood disorder F39 ; Migraine without aura and without status migrainosus, not intractable G43.009 ; Irritable bowel syndrome, unspecified type K58.9 ; Diabetes E11.9 and Encounter for immunization Z23 [facility] [address] [place] [id number] [address] [place] [address] Jan, [place] [address] [place] [id number] [place] [address] Jan, [place] [address] [place] [id number] [place] [address] Jan, [place] [address] [address] Jan, [place] [address] [address] Jan, [place] [address] [address] Dec, Bipolar I disorder with depr ession F31.9 ; PTSD (post-traumatic stress disorder) F43.10 and Panic disorder with agoraphobia F40.01 [place] [address] [place] [id number] [place] [address] Dec, Chronic obstructive pulmonar y disease, unspecified COPD type J44.9 ; Tremor R25.1 and Anxiety F41.9 [place] [address] [place] [id number] [address] [place] [address] Dec, [place] [address] [address] Nov, Tremors of nervous system R2 5.1 and Cramping of feet R25.2 [place] [address] [place] [id number] [address] [place] [address] Nov, [place] [address] [place] [id number] [place] [address] Nov, [facility] [address] [facility] [id number] [address] [place] [address] Oct, Chronic obstructive pulmonar y disease, unspecified J44.9 [facility] [address] [facility] [id number] [address] [place] [address] Oct, [place] [address] [place] [id number] [address] [place] [address] Oct, Tremor R25.1 [place] [address] [facility] [id number] [address] [place] [address] Oct, Bipolar I disorder with depr ession F31.9 ; Diabetes E11.9 ; PTSD (post-traumatic stress disorder) F43.10 and Panic disorder with agoraphobia F40.01 [place] [address] [place] [id number] [address] [place] [address] Oct, Mood disorder F39 [place] [address] [place] [id number] [address] [place] [address] September, [place] [address] [place] [id number] [address] [place] [address] September, Diabetes E11.9 ; Bipolar I d isorder with depression F31.9 ; PTSD (post-traumatic stress disorder) F43.10 and Panic disorder with agoraphobia F40.01 [place] [address] [facility] [id number] [address] [place] [address] September, Mood disorder F39 ; Schizoaf fective disorder, unspecified type F25.9 ; Arthritis M19.90 ; Tremor R25.1 ; Acute non-recurrent frontal sinusitis J01.10 and Blood in stool K92.1 [place] [address] [facility] [id number] [address] [place] [address] September, [place] [address] [place] [id number] [address] [place] [address] September, Chronic obstructive pulmonar y disease, unspecified J44.9 [facility] [address] [id number] [address] [place] [address] September, Diabetes E11.9 [facility] [address] [id number] [address] [place] [address] Aug, Other bipolar disorder F31.8 9 and Anxiety disorder, unspecified F41.9 [facility] [address] [facility] [id number] [address] [place] [address] Aug, [facility] [address] [id number] [address] [place] [address] Aug, Diabetes E11.9 [facility] [address] [facility] [id number] [address] [place] [id number] 18 Aug, 2015 [facility] [address] [facility] [id number] [address] [place] [address] 14 Aug, 2015 Diabetes E11.9 ; Fatigue R53 .83 and Dizziness R42 [facility] [address] [facility] [id number] [address] [place] [address] Aug, Other bipolar disorder F31.8 9 [facility] [address] [facility] [id number] [address] [place] [address] 07 Aug, 2015 Generalized anxiety disorder F41.1 [facility] [address] [facility] [id number] [address] [place] [address] Aug, Other bipolar disorder F31.8 9 and Anxiety disorder, unspecified F41.9 [facility] [address] [id number] [address] [place] [address] Aug, [facility] [address] [id number] [address] [place] [phone] Jul, [facility] [address] [facility] [id number] [address] [place] [phone] Jul, [facility] [address] [facility] [id number] [address] [place] [address] Jul, Bronchitis J40 [facility] [address] [id number] [address] [place] [address] Jul, Anxiety disorder F41.9 [facility] [address] [id number] [address] [place] [address] Jul, Other bipolar disorder F31.8 9 and Anxiety disorder, unspecified F41.9 [facility] [address] [id number] [address] [place] [address] Jul, Other bipolar disorder F31.8 9 and Fibromyalgia M79.7 [facility] [address] [id number] [address] [place] [address] Jul, [facility] [address] [id number] [address] [place] [id number] Jul, [facility] [address] [facility] [id number] [address] [place] [id number] Jul, [facility] [address] [facility] [id number] [address] [place] [address] Jul, Other bipolar disorder F31.8 9 and Anxiety disorder, unspecified F41.9 [facility] [address] [facility] [id number] [address] [place] [phone] Jun, GERD (gastroesophageal reflu x disease) K21.9 [facility] [address] [facility] [id number] [address] [place] [address] Jun, [facility] [address] [facility] [id number] [address] [place] [address] May, [facility] [address] [facility] [id number] [address] [place] [address] May, Diabetes E11.9 ; Back pain M 54.9 ; GERD (gastroesophageal reflux disease) K21.9 ; Hypertension I10 and Peripheral neuropathy G62.9 [facility] [address] [facility] [id number] [address] [place] [address] Mar, [facility] [address] [facility] [id number] [address] [place] [address] Mar, [facility] [address] [id number] [address] [place] [address] Mar, Acute sinusitis J01.90 and O titis media, left H66.92 [facility] [address] [id number] [address] [place] [phone] Feb, [facility] [address] [id number] [address] [place] [id number] Feb, [facility] [address] [id number] [address] [place] [id number] Feb, [facility] [address] [id number] [address] [place] [phone] Feb, [facility] [address] [facility] [id number] [address] [place] [id number] Jan, [facility] [address] [facility] [id number] [address] [place] [address] Jan, Diabetes 250.00 and Back higinio n 724.5 [facility] [address] [facility] [id number] [address] [place] [address] Jan, [facility] [address] [facility] [id number] [address] [place] [address] Dec, Diabetes 250.00 ; Benign ess ential hypertension 401.1 and Allergic rhinitis 477.9 [facility] [address] [facility] [id number] [address] [place] [address] Dec, [facility] [address] [facility] [id number] [address] [place] [address] Dec, [facility] [address] [facility] [id number] [address] [place] [address] Dec, Psychosis 298.9 [facility] [address] [facility] [id number] [address] [place] [address] Dec, Medication side effect 995.2 0 and Generalized anxiety disorder 300.02 [facility] [address] [facility] [id number] [address] [place] [address] 10 Dec, 2014 Acquired cognitive dysfuncti on 294.9 [facility] [address] [facility] [id number] [address] [place] [address] 08 Dec, 2014 [facility] [address] [facility] [id number] [address] [place] [address] Dec, Unspecified myalgia and myos itis 729.1 and Generalized anxiety disorder 300.02 [facility] [address] [facility] [id number] [address] [place] [address] Nov, [facility] [address] [facility] [id number] [address] [place] [address] Nov, [facility] [address] [facility] [id number] [address] [place] [address] Nov, [facility] [address] [facility] [id number] [address] [place] [address] Nov, Upper respiratory infection 465.9 and Chronic airway obstruction, not elsewhere classified 496 [facility] [address] [facility] [id number] [address] [place] [address] Nov, Hyponatremia 276.1 [facility] [address] [facility] [id number] [address] [place] [phone] Oct, [facility] [address] [facility] [id number] [address] [place] [address] Oct, [facility] [address] [facility] [id number] [address] [place] [phone] Oct, [facility] [address] [facility] [id number] [address] [place] [address] Oct, [facility] [address] [facility] [id number] [address] [place] [address] Oct, Hyponatremia 276.1 [facility] [address] [place] [id number] [address] [place] [address] Oct, [facility] [address] [id number] [address] [place] [address] Oct, [facility] [address] [id number] [address] [place] [address] Oct, Generalized anxiety disorder 300.02 [facility] [address] [id number] [address] [place] [address] Oct, Generalized anxiety disorder 300.02 and Diabetes 250.00 [facility] [address] [id number] [address] [place] [address] Aug, [facility] [address] [id number] [address] [place] [id number] Aug, [facility] [address] [id number] [address] [place] [phone] Jul, [facility] [address] [id number] [address] [place] [address] Jul, [facility] [address] [id number] [address] [place] [address] Jun, [facility] [address] [id number] [address] [place] [address] Jun, [facility] [address] [facility] [id number] [address] [place] [address] Jun, [facility] [address] [id number] [address] [place] [address] Jun, [facility] [address] [id number] [address] [place] [id number] Jun, [facility] [address] [id number] [address] [place] [address] May, [facility] [address] [id number] [address] [place] [address] May, [facility] [address] [id number] [address] [place] [address] Apr, [facility] [address] [id number] [address] [place] [address], [place] [address] Apr, [facility] [address] [id number] [address] [place] [address], [place] [address] Apr, [facility] [address] [id number] [address] [place] [address], [place] [address] Apr, [facility] [address] [id number] [address] [place] [address], [place] [address] Apr, [facility] [address] [id number] [address] [place] [address], [place] [address] Apr, [facility] [address] [id number] [address] [place] [address], [place] [address] Apr, [facility] [address] [id number] [address] [place] [address], [place] [address] Apr, [facility] [address] [id number] [address] [place] [address], [place] [address] Feb, [facility] [address] [id number] [address] [place] [address], [place] [address] Feb, [facility] [address] [id number] [address] [place] [address], [place] [address] Jan, [facility] [address] [id number] [address] [place] [address], [place] [address] Jan, [facility] [address] [id number] [address] [place] [address] Dec, [facility] [address] [id number] [address] [place] [address], [place] [address] Dec, [facility] [address] [id number] [address] [place] [address], [place] [address] Dec, [facility] [address] [id number] [address] [place] [address], [place] [address] Nov, [facility] [address] [id number] [address] [place] [address], [place] [address] Nov, [facility] [address] [id number] [address] [place] [address], [place] [address] Nov, [facility] [address] [id number] [address] [place] [address], [place] [address] Oct, [facility] [address] [id number] [address] [place] [address], [place] [address] Oct, [facility] [address] [id number] [address] [place] [address], [place] [address] Oct, [facility] [address] [id number] [address] [place] [address], [place] [address] September, [facility] [address] [id number] [address] [place] [address], [place] [address] September, [facility] [address] [id number] [address] [place] [address], [place] [address] September, [facility] [address] [id number] [address] [place] [address], [place] [address] Aug, [facility] [address] [id number] [address] [place] [address], [place] [address] Aug, [facility] [address] [id number] [address] [place] [address], [place] [address] Aug, [facility] [address] [id number] [address] [place] [address], [place] [address] 16 Aug, 2011 [facility] [address] [id number] [address] [place] [address], [place] [address] Jul, [facility] [address] [id number] [address] [place] [address], [place] [address] Jun, [facility] [address] [id number] [address] [place] [address], [place] [address] 14 Jun, 2011 [facility] [address] [id number] [address] [place] [address], [place] [address] 13 Jun, 2011 [facility] [address] [id number] [address] [place] [address], [place] [address] 07 Jun, 2011 [facility] [address] [id number] [address] [place] [address], [place] [address] Jun, [facility] [address] [id number] [address] [place] [address], [place] [address] 13 May, 2011 [facility] [address] [id number] [address] [place] [address], [place] [address] May, [facility] [address] [id number] [address] [place] [address], [place] [address] May, [facility] [address] [id number] [address] [place] [address], [place] [address] May, [facility] [address] [id number] [address] [place] [address], [place] [address] Apr, [facility] [address] [id number] [address] [place] [address] Apr, [facility] [address] [id number] [address] [place] [address], [place] [address] Apr, [facility] [address] [id number] [address] [place] [address] Mar, [facility] [address] [id number] [address] [place] [address] Mar, [facility] [address] [id number] [address] [place] [address] Mar, [facility] [address] [id number] [address] [place] [address], [place] [address] Feb, [facility] [address] [id number] [address] [place] [address] 13 Feb, 2011 [facility] [address] [id number] [address] [place] [address] 13 Feb, 2011 [facility] [address] [id number] [address] [place] [address] 11 Nov, 2010 [facility] [address] [id number] [address] [place] [address] September, [facility] [address] [id number] [address] [place] [address] Aug, [facility] [address] [id number] [address] [place] [address] Jul, [facility] [address] [id number] [address] [place] [address] May, [facility] [address] [id number] [address] [place] [address] Apr, [facility] [address] [id number] [address] [place] [address] Apr, [facility] [address] [id number] [address] [place] [address] Apr, [facility] [address] [id number] [address] [place] [address] Apr, [facility] [address] [id number] [address] [place] [address] Apr, IMMUNIZATIONS No Known Immunizations SOCIAL HISTORY Never Assessed REASON FOR VISIT DM/Headache f/uLuke Ackerman RN PLAN OF CARE VITAL SIGNS Height 66 in 2017-07-12 Weight 106 lbs 2017-07-12 Temperature 98.6 degrees Fahrenheit 2017-07-12 Heart Rate 80 bpm 2017-07-12 Respiratory Rate 16 2017-07-12 BMI 17.11 kg/m2 2017-07-12 Blood pressure systolic 142 mmHg 2017-07-12 Blood pressure diastolic 82 mmHg 2017-07-12 MEDICATIONS Medication Instructions Dosage Frequency Start Date End Date Duration S samantha Clonidine HCl 0.1 MG TAKE ONE TABLET BY MOUTH THREE TIMES DAILY Active Levemir FlexTouch 100 UNIT/ML Subcutaneous Once a day 7 units 24h September, 30 days Active Nebulizer 1 as directed Jul, Act minoo Xopenex 1.25 MG/3ML Inhalation 4 times a day prn 3 ml Dec, 30 days Active Singulair 10 mg Orally Once a day 1 tablet in the evening 24h Oct, 30 day(s) Active Lisinopril 30 MG Orally Once a day 1 tablet 24h Active Franklin 7.5-325 MG Orally 3 times a day 1 tablet as needed 8h 0 5 Jul, 2017 Aug, 28 days Active Diclofenac Sodium 1 % Transdermal Four times a day 2-4- grams to affected areas 6h Jun, Aug, 10 days Active Trazodone HCl 100 mg Orally for sleep 1 tablet at bedtime Jan Active Cetirizine HCl 10 mg Orally Once a day 1 tablet 24h Apr, 30 day(s) Active Benztropine Mesylate 0.5 MG Orally 3 times a day-Q AM, 4pm and bedtime for restlessness 1 tablet Mar, Active MiraLax - Orally Once a day 17 grams 24h 30 days Act minoo Incruse Ellipta 62.5 MCG/INH INHALE ONE PUFF BY MOUTH ONCE DAILY 30 Active Metoprolol Tartrate 50 mg Orally Twice a day TAKE ONE TABLE T BY MOUTH TWICE DAILY WITH FOOD 12h Active Lamictal 100 mg Orally 2 times a day for depression 1 tablet September, Active Insulin Pen Needle 32G X 6 MM as directed 24h Oct, Active BusPIRone HCl 15 mg Orally 3 times a day for anxiety 1 tablet Jan, Active Baclofen 20 MG Orally Three times a day 1 tablet with food or milk 8h 30 Active Lorazepam 2 MG Orally in the AM and noon and 4pm 1 tablet Jul, 30 days Active Ibuprofen 600 MG TAKE ONE TABLET BY MOUTH THREE TIMES DAILY 33 Active Adderall XR 20 mg Orally Once a day for depression 1 capsule in the morning Jun, 28 days Active Multivitamin Adult - Act minoo Ondansetron 4 MG Orally every 8 hrs PRN 1 tablet on the t ongue and allow to dissolve Apr, Active Loxapine Succinate 10 mg Orally twice a day for mood 1 capsule Active Nexium 40 MG TAKE ONE CAPSULE BY MOUTH ONCE DAILY 30 Active Aspir-81 81 MG Orally Once a day 1 tablet 24h Active Atorvastatin Calcium 10 MG Orally Once a day 1 tablet 24h Active Dicyclomine HCl 20 MG TAKE ONE TABLET BY MOUTH FOUR TIMES DAILY 30 Active Mucinex 600 MG Orally every 12 hrs 1 tablet as needed 12h Active Probiotic - Orally once a day 24h Ac tive Amlodipine Besylate 5 MG Orally Once a day 1 tablet 24h Active Ventolin HFA 108 (90 Base) MCG/ACT Inhalation every 4 hrs 2 puffs a s needed 4h Dec, Active Calcium 600 + D 600-200 MG-UNIT Active Breo Ellipta 200-25 MCG/INH Inhalation Once a day 1 puff 24h 04 Dec, 2016 September, 30 days Active Weapvuvqjh-HESI-Knuuioxc 50-325-40 MG Orally 3 times a day 1 cap yg as needed 8h Jun, Active Gabapentin 800 MG Orally Three times a day 1 tablet 8h Jul, Active Glucosamine 1000 MG Orally Once a day 2 capsules 24h Active Metformin HCl 1000 MG Orally Twice a day 1 tablet with meals 12h Aug, 30 day(s) Active Flonase 50 mcg/act 1 spray in each nostril 12h Apr, Active Gaviscon 80-14.2 MG Orally 4 times a day 4 tablet 6h Active RESULTS Name Result Date Reference Range A1C (IN HOUSE) 2017-07-13 A1C IN HOUSE 5.6 4.3 - 5.6 % Previous A1c 5.4 Lot [id number] Exp date 03/2019 PROCEDURES Procedure Date Ordered Result Body Site [facility] VISIT ESTABLISHED PATIENT July 12, 2017 GLYCATED HEMOGLOBIN TEST July 12, 2017 INSTRUCTIONS MEDICATIONS ADMINISTERED No Known Medications [...]
--- OUTSIDE RECORDS SUMMARY | 2019-07-17 11:19 | XMS REPORT ---
Author Author Sujey GANDHI Organization [facility] Address [address] [place] [address] Care Team Providers Care Pulp House Supervisor Name Role Phone WHIT GANDHI Unavailable PROBLEMS Type Condition ICD9-CM Code [id number] Code Onset Dates Condition S tatus SNOMED Code Problem Back pain M54.9 Active 801081191 Problem Diabetes E11.9 Active 86981860 Problem GERD (gastroesophageal reflux disease) K21.9 Active 880988947 Problem Hypertension I10 Active 9936370 3 Problem Anxiety disorder, unspecified F41.9 Active 905025758 Problem Other bipolar disorder F31.89 Active 43305068 Problem Fibromyalgia M79.7 Active 1948527 7 Problem Panic disorder with agoraphobia F40.01 Active 74785957 Problem Panlobular emphysema J43.1 Active 0754671 Problem Chronic obstructive pulmonary disease, unspecified J44.9 Active 05318768 Problem Akathisia G25.71 Active 647179822 Problem Lumbago with sciatica, left side M54.42 Active 511847784 Problem Migraine without aura and without status migrain osus, not intractable G43.009 Active 974882829 Problem Fibrocystic disease of right breast N60.11 Active 78083025 Problem Fibrocystic disease of left breast N60.12 Active 88813978 Problem Slow transit constipation K59.01 Acti ve 14356493 Problem Essential tremor G25.0 Active 609 996709 Problem Bipolar 1 disorder, depressed, moderate F31.32 Active 00707623 Problem Other chronic pain G89.29 Active 8 9804741 Problem Lumbago with sciatica, right side M54.41 Active 313240968 Problem Irritable bowel syndrome with constipation K58.1 Active 799810006 Problem Arthritis M19.90 Active 0416983 Problem Schizoaffective disorder, bipolar type F25.0 Active 21635157 Problem Irritable bowel syndrome with both constipation and diarrh ea K58.2 Active 59917824 Problem Attention deficit hyperactiv ity disorder (ADHD), predominantly inattentive type F90.0 Active 28161413 Problem Bipolar I disorder with depression F31.9 Active 46061669 Problem Chronic post-traumatic stress disorder (PTSD) F43. 12 Active 901237597 Problem Bipolar affective disorder, remission status unspecified F31.9 Active 07300141 Problem Mild persistent asthma without complication J45.30 Active 739799072 Problem Moderate persistent asthma without complication J4 5.40 Active 363360604 Problem Acute non-recurrent maxillary sinusitis J01.00 Active 88734930 Problem Bipolar 1 disorder, depressed, partial remission F 31.75 Active 20395084 ALLERGIES No Information ENCOUNTERS Encounter Location Date Diagnosis [id number] [facility] [id number] [address] [place] [phone] Nov, [place] [address] [address] [place] [id number] [address] [place] [phone] Nov, [place] [address] [address] [facility] [id number] [address] [place] [phone] Nov, [place] [address] [facility] [id number] [address] [place] [id number] Nov, Mild persistent asthma witho ut complication J45.30 and Irritable bowel syndrome with both constipation and diarrhea K58.2 [place] [address] [facility] [id number] [address] [place] [phone] Nov, [place] [address] [facility] [id number] [address] [place] [phone] Oct, [place] [address] [facility] [id number] [address] [place] [phone] Oct, [place] [address] 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 [id number] [address] [place] [phone] Oct, Frequent headaches R51 [facility] [address] [id number] [address] [place] [phone] Oct, [facility] [address] [id number] [address] [place] [phone] Oct, [facility] [address] [id number] [address] [place] [phone] Oct, [facility] [address] [id number] [address] [place] [phone] Oct, [facility] [address] [id number] [address] [place] [phone] Oct, [facility] [address] [id number] [address] [place] [phone] Oct, [facility] [address] [id number] [address] [place] [phone] Oct, [facility] [address] [id number] [address] [place] [phone] Oct, [facility] [address] [facility] [id number] [address] [place] [phone] September, Frequent headaches R51 [facility] [address] [facility] [id number] [address] [place] [address] September, Bilateral otitis media with effusion H65.93 ; Dizziness R42 and Essential tremor G25.0 [facility] [address] [id number] [address] [place] [address] September, Chronic obstructive pulmonar y disease, unspecified COPD type J44.9 [facility] [address] [facility] [id number] [address] [place] [phone] September, Chronic obstructive pulmonar y disease, unspecified COPD type J44.9 [facility] [address] [facility] [id number] [address] [place] [address] September, Migraine without aura and wi thout status migrainosus, not intractable G43.009 [facility] [address] [facility] [id number] [address] [place] [address] September, [facility] [address] [facility] [id number] [address] [place] [phone] September, [facility] [address] [facility] [id number] [address] [place] [phone] September, [facility] [address] [facility] [id number] [address] [place] [phone] September, Frequent headaches R51 [facility] [address] [facility] [id number] [address] [place] [phone] Aug, [facility] [address] [place] [id number] [address] [place] [address] Aug, Breast mass, right N63.10 [facility] [address] [place] [id number] [address] [place] [phone] Aug, Breast lump N63.0 [facility] [address] [facility] [id number] [address] [place] [address] Aug, [facility] [address] [address] Aug, Bipolar affective disorder, remission status unspecified F31.9 and Diabetes E11.9 [place] [address] [place] [id number] [address] [place] [address] Aug, Diabetes E11.9 ; Schizoaffec tive disorder, bipolar type F25.0 ; Pharyngitis due to other organism J02.8 ; Panlobular emphysema J43.1 and Irritable bowel syndrome with both constipation and diarrhea K58.2 [facility] [address] [place] [id number] [address] [place] [address] Aug, Abnormal mammogram R92.8 [facility] [address] [place] [id number] [address] [place] [id number] Aug, [facility] [address] [place] [id number] [place] [phone] Aug, Bipolar 1 disorder, depresse d, moderate F31.32 ; Panic disorder with agoraphobia F40.01 and Chronic post-traumatic stress disorder (PTSD) F43.12 [facility] [address] [facility] [id number] [address] [place] [phone] Aug, [facility] [address] [place] [id number] [address] [place] [phone] Aug, [facility] [address] [facility] [id number] [address] [place] [phone] Aug, [facility] [address] [place] [id number] [place] [phone] Jul, [facility] [address] [place] [id number] [place] [address] Jul, Mild persistent asthma witho ut complication J45.30 [facility] [address] [place] [id number] [address] [place] [address] Jul, Mild persistent asthma witho ut complication J45.30 [facility] [address] [id number] 15 Jul, 2017 Bipolar affective disorder, remission status unspecified F31.9 ; Diabetes E11.9 and Irritable bowel syndrome with constipation K58.1 [facility] [id number] [place] [address] Jul, [facility] [address] [place] [id number] [address] [place] [phone] Jul, [facility] [address] [id number] 08 Jul, 2017 Frequent headaches R51 [facility] [address] [place] [id number] [address] [place] [phone] 07 Jul, 2017 [facility] [address] [place] [id number] [address] [place] [address] Jul, [facility] [address] [place] [address] Jul, [place] [address] [address] Jul, Frequent headaches R51 ; Fib rocystic disease of left breast N60.12 ; Fibrocystic disease of right breast N60.11 and Diabetes E11.9 [place] [address] [address] Jul, [place] [address] [address] Jul, [place] [address] [address] Jun, Exudative tonsillitis J03.90 [place] [address] [address] 20 Jun, 2017 [place] [address] [address] 19 Jun, 2017 [place] [address] [address] 15 Jun, 2017 Mild persistent asthma witho ut complication J45.30 ; Chronic obstructive pulmonary disease, unspecified COPD type J44.9 and Exudative tonsillitis J03.90 [place] [address] [id number] 13 Jun, 2017 Encounter for immunization Z 23 [place] [address] [place] [id number] [address] [place] [address] Jun, [place] [address] [address] Jun, [place] [address] [address] 09 Jun, 2017 [facility] [address] [place] [id number] [address] [place] [address] 06 Jun, 2017 Tonsillitis J03.90 [facility] [address] [address] 05 Jun, 2017 [facility] [address] [address] 03 Jun, 2017 Acute non-recurrent maxillar y sinusitis J01.00 [facility] [address] [address] 02 Jun, 2017 [facility] [address] [address] May, [place] [address] [address] May, [place] [address] [address] May, GERD (gastroesophageal reflu x disease) K21.9 [place] [address] [address] May, Migraine without aura and wi thout status migrainosus, not intractable G43.009 [place] [address] [address] May, [place] [address] [address] May, [place] [address] [address] May, Panlobular emphysema J43.1 a nd Acute non-recurrent maxillary sinusitis J01.00 [place] [address] [address] May, Bipolar 1 disorder, depresse d, moderate F31.32 ; Panic disorder with agoraphobia F40.01 and Akathisia G25.71 [place] [address] [address] Apr, [facility] [address] [id number] [address] [place] [phone] Apr, [facility] [address] [facility] [id number] [address] [place] [address] Apr, Acute non-recurrent maxillar y sinusitis J01.00 [facility] [address] [facility] [id number] [address] [place] [id number] 07 Apr, 2017 Panlobular emphysema J43.1 [facility] [address] [id number] [address] [place] [phone] 04 Apr, 2017 [facility] [address] [facility] [id number] [address] [place] [phone] 04 Apr, 2017 Sore throat J02.9 and Exudat minoo tonsillitis J03.90 [facility] [address] [facility] [id number] [address] [place] [id number] 17 Mar, 2017 [facility] [address] [facility] [id number] [address] [place] [id number] 15 Mar, 2017 Acute non-recurrent maxillar y sinusitis J01.00 [facility] [address] [facility] [id number] [address] [place] [phone] Mar, [facility] [address] [facility] [id number] [address] [place] [phone] 09 Mar, 2017 Panlobular emphysema J43.1 a nd Diabetes E11.9 [facility] [address] [facility] [id number] [address] [place] [phone] 06 Mar, 2017 [facility] [address] [facility] [id number] [address] [place] [address] Feb, Wheezing R06.2 and Acute rec urrent pansinusitis J01.41 [facility] [address] [facility] [id number] [address] [place] [address] Feb, [facility] [address] [facility] [id number] [address] [place] [id number] Feb, Acute non-recurrent maxillar y sinusitis J01.00 [facility] [address] [id number] [address] [place] [id number] 16 Feb, 2017 Chronic obstructive pulmonar y disease, unspecified J44.9 [facility] [address] [id number] [address] [place] [address] Feb, Hypoxemia R09.02 and Chronic obstructive pulmonary disease, unspecified J44.9 [facility] [address] [id number] [address] [place] [address] 28 Jan, 2017 Bipolar 1 disorder, depresse d, moderate F31.32 ; Panic disorder with agoraphobia F40.01 ; Chronic post-traumatic stress disorder (PTSD) F43.12 ; Diabetes E11.9 and Moderate persistent asthma without complication J45.40 [place] [id number] [id number] [address] [place] [phone] Jan, [facility] [address] [id number] [address] [place] [id number] 19 Jan, 2017 Acute non-recurrent maxillar y sinusitis J01.00 [facility] [address] [id number] [address] [place] [address] 18 Jan, 2017 [facility] [address] [id number] [address] [place] [address] 18 Jan, 2017 [facility] [address] [id number] [address] [place] [address] Jan, Moderate persistent asthma w [facility] complication J45.40 and Hypoxemia R09.02 [facility] [address] [id number] [address] [place] [id number] 11 Jan, 2017 Moderate persistent asthma w [facility] complication J45.40 and Hypoxemia R09.02 [facility] [address] [id number] [address] [place] [address] Jan, [facility] [address] [facility] [id number] [address] [place] [address] Dec, Acute non-recurrent maxillar y sinusitis J01.00 [facility] [address] [id number] [address] [place] [id number] Dec, Chronic obstructive pulmonar y disease, unspecified J44.9 [facility] [address] [id number] [address] [place] [phone] Dec, [facility] [address] [id number] [address] [place] [id number] Dec, Mild persistent asthma witho ut complication J45.30 and Other chronic pain G89.29 [facility] [address] [id number] [address] [place] [id number] Nov, [facility] [address] [id number] [address] [place] [address] Nov, Acute non-recurrent maxillar y sinusitis J01.00 [facility] [address] [id number] [address] [place] [id number] Nov, [facility] [address] [id number] [address] [place] [id number] Nov, [facility] [address] [id number] [address] [place] [phone] Oct, [facility] [address] [id number] [address] [place] [address] Oct, Bipolar 1 disorder, depresse d, partial remission F31.75 ; Panic disorder with agoraphobia F40.01 and Chronic post-traumatic stress disorder (PTSD) F43.12 [facility] [address] [id number] [address] [place] [address] Oct, Acute non-recurrent maxillar y sinusitis J01.00 [facility] [address] [id number] [address] [place] [address] Oct, [facility] [address] [facility] [id number] [address] [place] [address] Oct, Diabetes E11.9 [facility] [address] [facility] [id number] [address] [place] [address] September, Diabetes E11.9 [facility] [address] [facility] [id number] [address] [place] [phone] September, Diabetes E11.9 and Sinus tac hycardia R00.0 [facility] [address] [facility] [id number] [address] [place] [phone] September, [facility] [address] [facility] [id number] [address] [place] [phone] September, [facility] [address] [facility] [id number] [address] [place] [address] Aug, Diabetes E11.9 and Lumbago w ith sciatica, right side M54.41 [facility] [address] [facility] [id number] [address] [place] [phone] Aug, [facility] [address] [facility] [id number] [address] [place] [phone] Jul, Bipolar 1 disorder, depresse d, moderate F31.32 ; Panic disorder with agoraphobia F40.01 and Chronic post-traumatic stress disorder (PTSD) F43.12 [facility] [address] [facility] [id number] [address] [place] [id number] Jul, Sore throat J02.9 [facility] [address] [facility] [id number] [address] [place] [id number] Jul, [facility] [address] [facility] [id number] [address] [place] [id number] Jul, [facility] [address] [facility] [id number] [address] [place] [phone] Jul, [facility] [address] [facility] [id number] [address] [place] [phone] Jul, [facility] [address] [facility] [id number] [address] [place] [id number] Jul, Sore throat J02.9 and Pharyn gitis, unspecified etiology J02.9 [facility] [address] [id number] [address] [place] [phone] Jun, [facility] [address] [id number] [address] [place] [phone] Jun, Diabetes E11.9 [facility] [address] [id number] [address] [place] [phone] Jun, [facility] [address] [id number] [address] [place] [id number] Jun, [facility] [address] [facility] [id number] [address] [place] [id number] Jun, [facility] [address] [facility] [id number] [address] [place] [phone] Jun, [facility] [address] [facility] [id number] [address] [place] [id number] Jun, [facility] [address] [facility] [id number] [address] [place] [phone] Jun, [facility] [address] [facility] [id number] [address] [place] [phone] Jun, [facility] [address] [facility] [id number] [address] [place] [phone] Jun, [facility] [address] [facility] [id number] [address] [place] [id number] May, Diabetes E11.9 ; Bipolar I d isorder with depression F31.9 ; Other chronic pain G89.29 ; Acute recurrent maxillary sinusitis J01.01 and Anxiety disorder, unspecified F41.9 [facility] [address] [facility] [id number] [address] [place] [id number] May, [facility] [address] [facility] [id number] [address] [place] [phone] May, Diabetes E11.9 ; Bipolar I d isorder with depression F31.9 ; Anxiety disorder, unspecified F41.9 ; Other chronic pain G89.29 and Acute recurrent maxillary sinusitis J01.01 [place] [address] [facility] [id number] [address] [place] [phone] May, [place] [address] [facility] [id number] [address] [place] [id number] May, Attention deficit hyperactiv ity disorder (ADHD), predominantly inattentive type F90.0 [place] [address] [facility] [id number] [address] [place] [phone] May, [place] [address] [place] [id number] [address] [place] [phone] Apr, Attention deficit hyperactiv ity disorder (ADHD), predominantly inattentive type F90.0 and Non-seasonal allergic rhinitis due to other allergic trigger J30.89 [place] [address] [place] [id number] [address] [place] [address] Apr, Bipolar 1 disorder, depresse d, moderate F31.32 ; Panic disorder with agoraphobia F40.01 and Chronic post-traumatic stress disorder (PTSD) F43.12 [place] [address] [place] [id number] [address] [place] [address] Apr, Dental examination Z01.20 [place] [address] [place] [id number] [address] [place] [phone] Mar, [place] [address] [facility] [id number] [address] [place] [address] Mar, [place] [address] [place] [id number] [address] [place] [phone] Mar, Bipolar I disorder with depr ession F31.9 and Anxiety disorder, unspecified F41.9 [place] [address] [place] [id number] [address] [place] [address] Mar, Panic disorder with agorapho syd F40.01 ; Bipolar 1 disorder, depressed, moderate F31.32 and Chronic post-traumatic stress disorder (PTSD) F43.12 [place] [address] [place] [id number] [address] [place] [address] Mar, [place] [address] [place] [id number] [address] [place] [address] Mar, Dental caries K02.9 [place] [address] [place] [id number] [place] [phone] Feb, Lumbago with sciatica, left side M54.42 ; Lumbago with sciatica, right side M54.41 and Other chronic pain G89.29 [place] [address] [place] [id number] [place] [phone] 17 Feb, 2016 [place] [address] [place] [id number] [place] [phone] Feb, [place] [address] [address] Feb, Bipolar I disorder with depr ession F31.9 ; PTSD (post-traumatic stress disorder) F43.10 and Mood disorder F39 [place] [id number] [place] [address] Feb, [place] [address] [place] [id number] [address] [place] [address] Feb, Dental examination Z01.20 [place] [address] [place] [id number] [address] [place] [phone] Feb, [facility] [address] [place] [id number] [address] [place] [id number] Feb, Acute bronchitis, unspecifie d organism J20.9 [facility] [address] [facility] [id number] [address] [place] [address] Jan, Mood disorder F39 ; Migraine without aura and without status migrainosus, not intractable G43.009 ; Irritable bowel syndrome, unspecified type K58.9 ; Diabetes E11.9 and Encounter for immunization Z23 [facility] [address] [facility] [id number] [address] [place] [phone] Jan, [facility] [address] [facility] [id number] [address] [place] [address] Jan, [facility] [address] [place] [id number] [address] [place] [phone] Jan, [facility] [address] [place] [id number] [address] [place] [phone] Jan, [facility] [address] [facility] [id number] [address] [place] [phone] Jan, [facility] [address] [place] [id number] [address] [place] [address] Dec, Bipolar I disorder with depr ession F31.9 ; PTSD (post-traumatic stress disorder) F43.10 and Panic disorder with agoraphobia F40.01 [facility] [address] [place] [address] Dec, Chronic obstructive pulmonar y disease, unspecified COPD type J44.9 ; Tremor R25.1 and Anxiety F41.9 [facility] [address] [place] [id number] [address] [place] [phone] Dec, [facility] [address] [place] [id number] [address] [place] [address] Nov, Tremors of nervous system R2 5.1 and Cramping of feet R25.2 [facility] [address] [facility] [id number] [address] [place] [address] Nov, [facility] [address] [place] [id number] [address] [place] [address] Nov, [facility] [address] [place] [id number] [address] [place] [id number] Oct, Chronic obstructive pulmonar y disease, unspecified J44.9 [facility] [address] [place] [id number] [address] [place] [address] Oct, [facility] [address] [facility] [id number] [address] [place] [address] Oct, Tremor R25.1 [facility] [address] [facility] [id number] [address] [place] [address] Oct, Bipolar I disorder with depr ession F31.9 ; Diabetes E11.9 ; PTSD (post-traumatic stress disorder) F43.10 and Panic disorder with agoraphobia F40.01 [facility] [address] [facility] [id number] [address] [place] [address] Oct, Mood disorder F39 [place] [address] [facility] [id number] [address] [place] [address] September, [place] [address] [place] [id number] [address] [place] [phone] September, Diabetes E11.9 ; Bipolar I d isorder with depression F31.9 ; PTSD (post-traumatic stress disorder) F43.10 and Panic disorder with agoraphobia F40.01 [place] [address] [facility] [id number] [address] [place] [phone] September, Mood disorder F39 ; Schizoaf fective disorder, unspecified type F25.9 ; Arthritis M19.90 ; Tremor R25.1 ; Acute non-recurrent frontal sinusitis J01.10 and Blood in stool K92.1 [facility] [address] [facility] [id number] [address] [place] [phone] September, [place] [address] [facility] [id number] [address] [place] [phone] September, Chronic obstructive pulmonar y disease, unspecified J44.9 [facility] [address] [facility] [id number] [address] [place] [address] September, Diabetes E11.9 [place] [address] [place] [id number] [address] [place] [address] Aug, Other bipolar disorder F31.8 9 and Anxiety disorder, unspecified F41.9 [facility] [address] [id number] [address] [place] [phone] Aug, [facility] [address] [id number] [address] [place] [address] Aug, Diabetes E11.9 [facility] [address] [id number] [address] [place] [phone] 18 Aug, 2015 [facility] [address] [id number] [address] [place] [phone] 14 Aug, 2015 Diabetes E11.9 ; Fatigue R53 .83 and Dizziness R42 [facility] [address] [id number] [address] [place] [phone] 13 Aug, 2015 Other bipolar disorder F31.8 9 [facility] [address] [id number] [address] [place] [phone] 07 Aug, 2015 Generalized anxiety disorder F41.1 [facility] [address] [id number] [address] [place] [phone] 07 Aug, 2015 Other bipolar disorder F31.8 9 and Anxiety disorder, unspecified F41.9 [facility] [address] [id number] [address] [place] [phone] Aug, [facility] [address] [id number] [address] [place] [phone] Jul, [facility] [address] [id number] [address] [place] [address] Jul, [facility] [address] [id number] [address] [place] [address] Jul, Bronchitis J40 [facility] [address] [id number] [address] [place] [address] Jul, Anxiety disorder F41.9 [facility] [address] [id number] [address] [place] [address] Jul, Other bipolar disorder F31.8 9 and Anxiety disorder, unspecified F41.9 [facility] [address] [id number] [address] [place] [phone] Jul, Other bipolar disorder F31.8 9 and Fibromyalgia M79.7 [facility] [address] [id number] [address] [place] [phone] Jul, [facility] [address] [facility] [id number] [address] [place] [phone] Jul, [facility] [address] [id number] [address] [place] [address] Jul, [facility] [address] [facility] [id number] [address] [place] [phone] Jul, Other bipolar disorder F31.8 9 and Anxiety disorder, unspecified F41.9 [facility] [address] [facility] [id number] [address] [place] [phone] Jun, GERD (gastroesophageal reflu x disease) K21.9 [facility] [address] [facility] [id number] [address] [place] [phone] Jun, [facility] [address] [facility] [id number] [address] [place] [phone] May, [facility] [address] [facility] [id number] [address] [place] [phone] May, Diabetes E11.9 ; Back pain M 54.9 ; GERD (gastroesophageal reflux disease) K21.9 ; Hypertension I10 and Peripheral neuropathy G62.9 [facility] [address] [facility] [id number] [address] [place] [phone] Mar, [facility] [address] [facility] [id number] [address] [place] [phone] Mar, [facility] [address] [facility] [id number] [address] [place] [id number] Mar, Acute sinusitis J01.90 and O titis media, left H66.92 [facility] [address] [id number] [address] [place] [phone] Feb, [facility] [address] [facility] [id number] [address] [place] [phone] Feb, [facility] [address] [facility] [id number] [address] [place] [phone] Feb, [facility] [address] [facility] [id number] [address] [place] [phone] Feb, [facility] [address] [facility] [id number] [address] [place] [phone] Jan, [facility] [address] [facility] [id number] [address] [place] [address] Jan, Diabetes 250.00 and Back higinio n 724.5 [facility] [address] [facility] [id number] [address] [place] [phone] Jan, [facility] [address] [facility] [id number] [address] [place] [address] Dec, Diabetes 250.00 ; Benign ess ential hypertension 401.1 and Allergic rhinitis 477.9 [facility] [address] [facility] [id number] [address] [place] [phone] Dec, [facility] [address] [facility] [id number] [address] [place] [phone] Dec, [facility] [address] [facility] [id number] [address] [place] [phone] Dec, Psychosis 298.9 [facility] [address] [facility] [id number] [address] [place] [phone] Dec, Medication side effect 995.2 0 and Generalized anxiety disorder 300.02 [facility] [address] [facility] [id number] [address] [place] [address] Dec, Acquired cognitive dysfuncti on 294.9 [facility] [address] [facility] [id number] [address] [place] [phone] Dec, [facility] [address] [facility] [id number] [address] [place] [phone] Dec, Unspecified myalgia and myos itis 729.1 and Generalized anxiety disorder 300.02 [facility] [address] [id number] [address] [place] [phone] Nov, [facility] [address] [facility] [id number] [address] [place] [phone] Nov, [facility] [address] [id number] [address] [place] [phone] Nov, [facility] [address] [facility] [id number] [address] [place] [phone] Nov, Upper respiratory infection 465.9 and Chronic airway obstruction, not elsewhere classified 496 [facility] [address] [facility] [id number] [address] [place] [address] Nov, Hyponatremia 276.1 [facility] [address] [facility] [id number] [address] [place] [phone] Oct, [facility] [address] [facility] [id number] [address] [place] [phone] Oct, [facility] [address] [facility] [id number] [address] [place] [phone] Oct, [facility] [address] [facility] [id number] [address] [place] [phone] Oct, [facility] [address] [facility] [id number] [address] [place] [phone] Oct, Hyponatremia 276.1 [facility] [address] [facility] [id number] [address] [place] [phone] Oct, [facility] [address] [facility] [id number] [address] [place] [phone] Oct, [facility] [address] [facility] [id number] [address] [place] [phone] Oct, Generalized anxiety disorder 300.02 [facility] [address] [id number] [address] [place] [address] Oct, Generalized anxiety disorder 300.02 and Diabetes 250.00 [facility] [address] [id number] [address] [place] [phone] 14 Aug, 2014 [facility] [address] [id number] [address] [place] [phone] Aug, [facility] [address] [id number] [address] [place] [phone] Jul, [facility] [address] [id number] [address] [place] [phone] Jul, [facility] [address] [id number] [address] [place] [phone] Jun, [facility] [address] [id number] [address] [place] [phone] Jun, [facility] [address] [id number] [address] [place] [phone] Jun, [facility] [address] [id number] [address] [place] [address], [place] [phone] Jun, [facility] [address] [id number] [address] [place] [phone] Jun, [facility] [address] [id number] [address] [place] [phone] May, [facility] [address] [id number] [address] [place] [phone] May, [facility] [address] [id number] [address] [place] [phone] Apr, [facility] [address] [id number] [address] [place] [phone] Apr, [facility] [address] [id number] [address] [place] [phone] Apr, [facility] [address] [id number] [address] [place] [address], [place] [address] Apr, [facility] [address] [id number] [address] [place] [address], [place] [id number] Apr, [facility] [address] [id number] [address] [place] [address], [place] [id number] Apr, [facility] [address] [id number] [address] [place] [address], [place] [id number] Apr, [facility] [address] [id number] [address] [place] [address], [place] [id number] Apr, [facility] [address] [id number] [address] [place] [address], [place] [address] Feb, [facility] [address] [id number] [address] [place] [address], [place] [id number] Feb, [facility] [address] [id number] [address] [place] [address], [place] [id number] Jan, [facility] [address] [id number] [address] [place] [address], [place] [address] Jan, [facility] [address] [id number] [address] [place] [address], [place] [id number] Dec, [facility] [address] [id number] [address] [place] [address], [place] [address] Dec, [facility] [address] [id number] [address] [place] [address], [place] [id number] Dec, [facility] [address] [id number] [address] [place] [address], [place] [address] Nov, [facility] [address] [id number] [address] [place] [address], [place] [address] Nov, [facility] [address] [id number] [address] [place] [address], [place] [address] Nov, [facility] [address] [id number] [address] [place] [address] [place] [id number] Oct, [facility] [address] [id number] [address] [place] [address], [place] [phone] Oct, [facility] [address] [id number] [address] [place] [address], [place] [id number] Oct, [facility] [address] [id number] [address] [place] [address], [place] [address] September, [facility] [address] [id number] [address] [place] [address], [place] [address] September, [facility] [address] [id number] [address] [place] [address], [place] [id number] September, [facility] [address] [id number] [address] [place] [address], [place] [address] Aug, [facility] [address] [id number] [address] [place] [address], [place] [id number] Aug, [facility] [address] [id number] [address] [place] [address], [place] [address] Aug, [facility] [address] [id number] [address] [place] [address], [place] [id number] 16 Aug, 2011 [facility] [address] [id number] [address] [place] [address], [place] [id number] Jul, [facility] [address] [id number] [address] [place] [address], [place] [id number] Jun, [facility] [address] [id number] [address] [place] [address], [place] [id number] 14 Jun, 2011 [facility] [address] [id number] [address] [place] [address], [place] [id number] 13 Jun, 2011 [facility] [address] [id number] [address] [place] [address], [place] [id number] 07 Jun, 2011 [facility] [address] [id number] [address] [place] [address], [place] [id number] 03 Jun, 2011 [facility] [address] [id number] [address] [place] [address], [place] [id number] May, [facility] [address] [id number] [address] [place] [address], [place] [id number] May, [facility] [address] [id number] [address] [place] [address], [place] [id number] May, [facility] [address] [id number] [address] [place] [address], [place] [id number] May, [facility] [address] [id number] [address] [place] [address], [place] [id number] Apr, [facility] [address] [id number] [address] [place] [address], [place] [id number] Apr, [facility] [address] [id number] [address] [place] [address], [place] [id number] Apr, [facility] [address] [id number] [address] [place] [address], [place] [id number] Mar, [facility] [address] [id number] [address] [place] [address], [place] [id number] Mar, [facility] [address] [id number] [address] [place] [address], [place] [id number] Mar, [facility] [address] [id number] [address] [place] [id number] Feb, [facility] [address] [id number] [address] [place] [id number] Feb, [facility] [address] [id number] [address] [place] [address], [place] [id number] Feb, [facility] [address] [id number] [address] [place] [address], [place] [id number] Nov, [facility] [address] [id number] [address] [place] [address], [place] [id number] September, [facility] [address] [id number] [address] [place] [id number] Aug, [facility] [address] [facility] [id number] [address] [place] [phone] Jul, [facility] [address] [facility] [id number] [address] [place] [phone] May, [facility] [address] [facility] [id number] [address] [place] [id number] Apr, [facility] [address] [facility] [id number] [address] [place] [phone] Apr, [facility] [address] [facility] [id number] [address] [place] [phone] Apr, [facility] [address] [facility] [id number] [address] [place] [phone] Apr, [facility] [address] [facility] [id number] [address] [place] [phone] Apr, IMMUNIZATIONS No Known Immunizations SOCIAL HISTORY Never Assessed REASON FOR VISIT Medication information/Requests return call PLAN OF CARE VITAL SIGNS [...]
--- OUTSIDE RECORDS SUMMARY | 2019-07-17 11:19 | XMS REPORT ---
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 Name Role Phone JOHANNGISELEYVON Unavailable PROBLEMS Type Condition ICD9-CM Code OVY01-TL Code Onset Dates Condition S tatus SNOMED Code Problem Back pain M54.9 Active 463305301 Problem GERD (gastroesophageal reflux disease) K21.9 Active 284301811 Problem Diabetes E11.9 Active 60027795 Problem Hypertension I10 Active 1144012 3 Problem Anxiety disorder, unspecified F41.9 Active 241734046 Problem Other bipolar disorder F31.89 Active 94628097 Problem Mild persistent asthma without complication J45.30 Active 945007571 Problem Fibromyalgia M79.7 Active 6749063 7 Problem Moderate persistent asthma without complication J4 5.40 Active 533308404 Problem Panic disorder with agoraphobia F40.01 Active 04022206 Problem Panlobular emphysema J43.1 Active 0537442 Problem Migraine without aura and without status migrain osus, not intractable G43.009 Active 504063657 Problem Akathisia G25.71 Active 352361056 Problem Schizoaffective disorder, bipolar type F25.0 Active 95133616 Problem Irritable bowel syndrome with both constipation and diarrh ea K58.2 Active 14056008 Problem Lumbago with sciatica, left side M54.42 Active 423175429 Problem Other chronic pain G89.29 Active 8 6152582 Problem Chronic obstructive pulmonary disease, unspecified J44.9 Active 67729161 Problem Fibrocystic disease of left breast N60.12 Active 29759179 Problem Fibrocystic disease of right breast N60.11 Active 66247365 Problem Irritable bowel syndrome with constipation K58.1 Active 431562629 Problem Arthritis M19.90 Active 6877641 Problem Chronic post-traumatic stress disorder (PTSD) F43. 12 Active 830175488 Problem Bipolar affective disorder, remission status unspecified F31.9 Active 98907119 Problem Lumbago with sciatica, right side M54.41 Active 672918628 Problem Bipolar 1 disorder, depressed, moderate F31.32 Active 52683668 Problem Acute non-recurrent maxillary sinusitis J01.00 Active 07876142 Problem Bipolar 1 disorder, depressed, partial remission F 31.75 Active 33512372 Problem Attention deficit hyperactiv ity disorder (ADHD), predominantly inattentive type F90.0 Active 15278443 Problem Bipolar I disorder with depression F31.9 Active 10954601 ALLERGIES No Information ENCOUNTERS Encounter Location Date Diagnosis [facility] [place] [address] [id number] [place] [phone] Nov, [facility] [place] [address] [address] September, [facility] [place] [address] [address] September, Migraine without aura and wi thout status migrainosus, not intractable G43.009 [facility] [place] [id number] [place] [id number] September, [facility] [place] [address] [address] September, [facility] [place] [address] [address] September, [facility] [place] [address] [address] September, Frequent headaches R51 [facility] [place] [id number] [place] [address] Aug, [facility] [place] [address] [address] Aug, Breast mass, right N63.10 [facility] [place] [id number] [place] [phone] Aug, Breast lump N63.0 [facility] [place] [id number] [place] [address] Aug, [place] [address] [id number] [address] [place] [id number] Aug, Bipolar affective disorder, remission status unspecified F31.9 and Diabetes E11.9 [facility] [place] [address] [id number] [address] [place] [address] Aug, Diabetes E11.9 ; Schizoaffec tive disorder, bipolar type F25.0 ; Pharyngitis due to other organism J02.8 ; Panlobular emphysema J43.1 and Irritable bowel syndrome with both constipation and diarrhea K58.2 [place] [address] [id number] [address] [place] [address] Aug, Abnormal mammogram R92.8 [place] [address] [id number] [address] [place] [id number] Aug, [place] [address] [facility] [id number] [address] [place] [address] Aug, Bipolar 1 disorder, depresse d, moderate F31.32 ; Panic disorder with agoraphobia F40.01 and Chronic post-traumatic stress disorder (PTSD) F43.12 [place] [address] [id number] [address] [place] [address] Aug, [place] [address] [id number] [address] [place] [phone] Aug, [place] [address] [facility] [id number] [address] [place] [id number] Aug, [place] [address] [id number] [address] [place] [id number] Jul, [place] [address] [id number] [address] [place] [address] Jul, Mild persistent asthma witho ut complication J45.30 [place] [address] [id number] [address] [place] [address] Jul, Mild persistent asthma witho ut complication J45.30 [facility] [place] [address] [facility] [id number] [address] [place] [id number] 15 Jul, 2017 Bipolar affective disorder, remission status unspecified F31.9 ; Diabetes E11.9 and Irritable bowel syndrome with constipation K58.1 [facility] [place] [address] [facility] [id number] [address] [place] [id number] 13 Jul, 2017 [facility] [place] [address] [facility] [id number] [address] [place] [phone] Jul, [facility] [place] [address] [id number] [address] [place] [phone] Jul, Frequent headaches R51 [place] [address] [facility] [id number] [address] [place] [id number] 07 Jul, 2017 [facility] [place] [address] [facility] [id number] [address] [place] [address] Jul, [facility] [place] [address] [facility] [id number] [address] [place] [id number] Jul, [facility] [place] [address] [facility] [id number] [address] [place] [address] Jul, Frequent headaches R51 ; Fib rocystic disease of left breast N60.12 ; Fibrocystic disease of right breast N60.11 and Diabetes E11.9 [facility] [place] [address] [facility] [id number] [address] [place] [id number] Jul, [facility] [place] [address] [facility] [id number] [address] [place] [id number] Jul, [facility] [place] [address] [facility] [id number] [address] [place] [address] Jun, Exudative tonsillitis J03.90 [facility] [place] [address] [facility] [id number] [address] [place] [address] Jun, [facility] [place] [address] [facility] [id number] [address] [place] [address] Jun, [place] [address] [facility] [id number] [address] [place] [id number] 15 Jun, 2017 Mild persistent asthma witho ut complication J45.30 ; Chronic obstructive pulmonary disease, unspecified COPD type J44.9 and Exudative tonsillitis J03.90 [facility] [place] [address] [facility] [id number] [address] [place] [id number] 13 Jun, 2017 Encounter for immunization Z 23 [facility] [place] [address] [facility] [id number] [address] [place] [id number] 12 Jun, 2017 [facility] [place] [address] [facility] [id number] [address] [place] [address] Jun, [facility] [place] [address] [facility] [id number] [place] [phone] 09 Jun, 2017 [facility] [address] [facility] [id number] [address] [place] [id number] 06 Jun, 2017 Tonsillitis J03.90 [facility] [place] [address] [facility] [id number] [address] [place] [phone] 05 Jun, 2017 [facility] [place] [address] [facility] [id number] [address] [place] [id number] 03 Jun, 2017 Acute non-recurrent maxillar y sinusitis J01.00 [facility] [place] [address] [facility] [id number] [address] [place] [phone] Jun, [facility] [place] [address] [facility] [id number] [address] [place] [phone] May, [facility] [place] [address] [facility] [id number] [address] [place] [id number] May, [facility] [place] [address] [facility] [id number] [address] [place] [id number] May, GERD (gastroesophageal reflu x disease) K21.9 [facility] [place] [address] [facility] [id number] [address] [place] [address] May, Migraine without aura and wi thout status migrainosus, not intractable G43.009 [facility] [place] [address] [id number] [address] [place] [id number] May, [facility] [place] [address] [id number] [address] [place] [id number] May, [facility] [place] [address] [facility] [id number] [address] [place] [id number] May, Panlobular emphysema J43.1 a nd Acute non-recurrent maxillary sinusitis J01.00 [facility] [place] [address] [id number] [address] [place] [id number] May, Bipolar 1 disorder, depresse d, moderate F31.32 ; Panic disorder with agoraphobia F40.01 and Akathisia G25.71 [facility] [place] [address] [facility] [id number] [address] [place] [phone] 27 Apr, 2017 [facility] [place] [address] [id number] [address] [place] [id number] 14 Apr, 2017 [facility] [place] [address] [facility] [id number] [address] [place] [id number] 13 Apr, 2017 Acute non-recurrent maxillar y sinusitis J01.00 [facility] [place] [address] [id number] [address] [place] [id number] 07 Apr, 2017 Panlobular emphysema J43.1 [facility] [place] [address] [facility] [id number] [address] [place] [id number] 04 Apr, 2017 [facility] [address] [id number] [address] [place] [id number] 04 Apr, 2017 Exudative tonsillitis J03.90 and Sore throat J02.9 [facility] [place] [address] [facility] [id number] [address] [place] [phone] Mar, [facility] [place] [address] [facility] [id number] [address] [place] [id number] Mar, Acute non-recurrent maxillar y sinusitis J01.00 [facility] [place] [address] [facility] [id number] [address] [place] [id number] 13 Mar, 2017 [facility] [place] [address] [facility] [id number] [address] [place] [id number] 09 Mar, 2017 Panlobular emphysema J43.1 a nd Diabetes E11.9 [facility] [place] [id number] [place] [id number] 06 Mar, 2017 [facility] [address] [facility] [id number] [address] [place] [id number] 24 Feb, 2017 Wheezing R06.2 and Acute rec urrent pansinusitis J01.41 [facility] [place] [address] [facility] [id number] [address] [place] [id number] Feb, [facility] [place] [id number] [place] [address] Feb, Acute non-recurrent maxillar y sinusitis J01.00 [facility] [place] [id number] [place] [id number] Feb, Chronic obstructive pulmonar y disease, unspecified J44.9 [facility] [place] [id number] [place] [id number] 02 Feb, 2017 Hypoxemia R09.02 and Chronic obstructive pulmonary disease, unspecified J44.9 [facility] [place] [id number] [place] [id number] 28 Jan, 2017 Bipolar 1 disorder, depresse d, moderate F31.32 ; Panic disorder with agoraphobia F40.01 ; Chronic post-traumatic stress disorder (PTSD) F43.12 ; Diabetes E11.9 and Moderate persistent asthma without complication J45.40 [facility] [place] [id number] [place] [id number] 22 Jan, 2017 [facility] [place] [id number] [place] [id number] 19 Jan, 2017 Acute non-recurrent maxillar y sinusitis J01.00 [facility] [place] [address] [id number] [address] [place] [id number] 18 Jan, 2017 [facility] [place] [address] [id number] [address] [place] [phone] Jan, [facility] [place] [address] [id number] [address] [place] [id number] Jan, Moderate persistent asthma w ithout complication J45.40 and Hypoxemia R09.02 [facility] [place] [address] [id number] [address] [place] [id number] Jan, Moderate persistent asthma w ithout complication J45.40 and Hypoxemia R09.02 [facility] [place] [address] [id number] [address] [place] [id number] Jan, [facility] [place] [address] [id number] [address] [place] [id number] Dec, Acute non-recurrent maxillar y sinusitis J01.00 [facility] [place] [address] [id number] [address] [place] [id number] Dec, Chronic obstructive pulmonar y disease, unspecified J44.9 [facility] [place] [address] [id number] [address] [place] [id number] Dec, [facility] [place] [address] [id number] [address] [place] [phone] Dec, Mild persistent asthma witho ut complication J45.30 and Other chronic pain G89.29 [facility] [place] [address] [id number] [address] [place] [id number] Nov, [facility] [place] [address] [id number] [address] [place] [id number] Nov, Acute non-recurrent maxillar y sinusitis J01.00 [facility] [place] [address] [id number] [address] [place] [phone] Nov, [facility] [place] [address] [id number] [address] [place] [phone] Nov, [facility] [place] [address] [id number] [address] [place] [phone] Oct, [facility] [place] [address] [facility] [id number] [address] [place] [id number] Oct, Bipolar 1 disorder, depresse d, partial remission F31.75 ; Panic disorder with agoraphobia F40.01 and Chronic post-traumatic stress disorder (PTSD) F43.12 [facility] [place] [address] [id number] [address] [place] [id number] Oct, Acute non-recurrent maxillar y sinusitis J01.00 [place] [address] [facility] [id number] [address] [place] [address] Oct, [place] [address] [id number] [place] [id number] Oct, Diabetes E11.9 [facility] [place] [address] [facility] [id number] [address] [place] [id number] September, Diabetes E11.9 [facility] [place] [address] [facility] [id number] [address] [place] [address] September, Diabetes E11.9 and Sinus tac hycardia R00.0 [facility] [place] [address] [facility] [id number] [address] [place] [phone] September, [facility] [place] [address] [facility] [id number] [address] [place] [address] September, [facility] [place] [address] [id number] [address] [place] [address] Aug, Diabetes E11.9 and Lumbago w ith sciatica, right side M54.41 [facility] [place] [address] [id number] [address] [place] [phone] Aug, [facility] [place] [address] [facility] [id number] [address] [place] [address] Jul, Bipolar 1 disorder, depresse d, moderate F31.32 ; Panic disorder with agoraphobia F40.01 and Chronic post-traumatic stress disorder (PTSD) F43.12 [facility] [place] [address] [facility] [id number] [address] [place] [phone] Jul, Sore throat J02.9 [facility] [place] [address] [facility] [id number] [address] [place] [id number] Jul, [facility] [place] [address] [facility] [id number] [address] [place] [phone] Jul, [facility] [place] [address] [facility] [id number] [address] [place] [id number] Jul, [facility] [place] [address] [facility] [id number] [address] [place] [phone] Jul, [facility] [place] [address] [facility] [id number] [address] [place] [id number] Jul, Sore throat J02.9 and Pharyn gitis, unspecified etiology J02.9 [facility] [place] [address] [facility] [id number] [address] [place] [phone] Jun, [facility] [place] [address] [facility] [id number] [address] [place] [id number] Jun, Diabetes E11.9 [facility] [place] [address] [facility] [id number] [address] [place] [phone] Jun, [facility] [place] [address] [facility] [id number] [address] [place] [phone] Jun, [facility] [place] [address] [facility] [id number] [address] [place] [phone] Jun, [facility] [place] [address] [facility] [id number] [address] [place] [id number] Jun, [facility] [place] [address] [facility] [id number] [address] [place] [id number] Jun, [facility] [place] [address] [place] [id number] [address] [place] [id number] 15 Jun, 2016 [facility] [place] [address] [id number] [address] [place] [phone] Jun, [facility] [place] [address] [id number] [address] [place] [address] Jun, [facility] [place] [address] [id number] [address] [place] [address] May, Diabetes E11.9 ; Other chron ic pain G89.29 ; Acute recurrent maxillary sinusitis J01.01 ; Bipolar I disorder with depression F31.9 and Anxiety disorder, unspecified F41.9 [facility] [place] [address] [id number] [address] [place] [id number] May, [facility] [place] [address] [id number] [address] [place] [phone] May, Diabetes E11.9 ; Bipolar I d isorder with depression F31.9 ; Anxiety disorder, unspecified F41.9 ; Other chronic pain G89.29 and Acute recurrent maxillary sinusitis J01.01 [facility] [place] [address] [id number] [address] [place] [id number] May, [facility] [place] [address] [id number] [address] [place] [id number] May, Attention deficit hyperactiv ity disorder (ADHD), predominantly inattentive type F90.0 [facility] [place] [address] [id number] [address] [place] [phone] May, [facility] [place] [address] [id number] [address] [place] [phone] Apr, Attention deficit hyperactiv ity disorder (ADHD), predominantly inattentive type F90.0 and Non-seasonal allergic rhinitis due to other allergic trigger J30.89 [facility] [place] [address] [id number] [address] [place] [id number] Apr, Bipolar 1 disorder, depresse d, moderate F31.32 ; Panic disorder with agoraphobia F40.01 and Chronic post-traumatic stress disorder (PTSD) F43.12 [facility] [place] [address] [id number] [address] [place] [id number] Apr, Dental examination Z01.20 [facility], [place] [address] [id number] [address] [place] [phone] Mar, [facility], [place] [address] [id number] [address] [place] [phone] Mar, [facility], [place] [address] [id number] [address] [place] [phone] Mar, Bipolar I disorder with depr ession F31.9 and Anxiety disorder, unspecified F41.9 [facility], [place] [address] [id number] [address] [place] [id number] 08 Mar, 2016 Panic disorder with agorapho syd F40.01 ; Bipolar 1 disorder, depressed, moderate F31.32 and Chronic post-traumatic stress disorder (PTSD) F43.12 [place] [id number] [id number] [address] [place] [phone] 04 Mar, 2016 [facility], [place] [address] [id number] [address] [place] [phone] 02 Mar, 2016 Dental caries K02.9 [facility], [place] [address] [id number] [address] [place] [id number] 24 Feb, 2016 Lumbago with sciatica, left side M54.42 ; Lumbago with sciatica, right side M54.41 and Other chronic pain G89.29 [facility], [place] [address] [id number] [address] [place] [phone] Feb, [facility], [place] [address] [id number] [address] [place] [phone] 14 Feb, 2016 [facility], [place] [address] [id number] [address] [place] [id number] Feb, Bipolar I disorder with depr ession F31.9 ; PTSD (post-traumatic stress disorder) F43.10 and Mood disorder F39 [facility], [place] [address] [place] [id number] [address] [place] [phone] Feb, [facility], [place] [address] [place] [place] [id number] [address] [place], [place] [address] Feb, Dental examination Z01.20 [facility] [place] [address] [id number] [address] [place] [id number] 07 Feb, 2016 [facility] [address] [id number] [address] [place] [address] Feb, Acute bronchitis, unspecifie d organism J20.9 [facility] [place] [address] [address] Jan, Mood disorder F39 ; Migraine without aura and without status migrainosus, not intractable G43.009 ; Irritable bowel syndrome, unspecified type K58.9 ; Diabetes E11.9 and Encounter for immunization Z23 [facility] [place] [address] [address] 15 Jan, 2016 [place] [address] [id number] Jan, [facility] [place] [address] [address] Jan, [facility] [place] [address] [address] [id number] [address] [place] [address] Jan, [place] [address] [address] Jan, [facility] [place] [id number] [place] [address] Dec, Bipolar I disorder with depr ession F31.9 ; PTSD (post-traumatic stress disorder) F43.10 and Panic disorder with agoraphobia F40.01 [facility] [place] [address] [id number] [address] [place] [address] Dec, Chronic obstructive pulmonar y disease, unspecified COPD type J44.9 ; Tremor R25.1 and Anxiety F41.9 [facility] [place] [address] [facility] [id number] [address] [place] [address] Dec, [facility] [place] [address] [facility] [id number] [address] [place] [address] Nov, Tremors of nervous system R2 5.1 and Cramping of feet R25.2 [facility] [place] [address] [id number] [address] [place] [address] Nov, [facility] [place] [address] [id number] [address] [place] [phone] Nov, [facility] [place] [address] [facility] [id number] [address] [place] [id number] Oct, Chronic obstructive pulmonar y disease, unspecified J44.9 [facility] [place] [address] [facility] [id number] [address] [place] [address] Oct, [facility] [place] [address] [facility] [id number] [address] [place] [address] Oct, Tremor R25.1 [facility] [place] [address] [facility] [id number] [address] [place] [address] Oct, Bipolar I disorder with depr ession F31.9 ; Diabetes E11.9 ; PTSD (post-traumatic stress disorder) F43.10 and Panic disorder with agoraphobia F40.01 [facility] [place] [address] [facility] [id number] [address] [place] [id number] Oct, Mood disorder F39 [facility] [place] [address] [facility] [id number] [address] [place] [address] September, [facility] [place] [address] [facility] [id number] [address] [place] [id number] September, Diabetes E11.9 ; Bipolar I d isorder with depression F31.9 ; PTSD (post-traumatic stress disorder) F43.10 and Panic disorder with agoraphobia F40.01 [facility] [place] [address] [facility] [id number] [address] [place] [address] September, Mood disorder F39 ; Schizoaf fective disorder, unspecified type F25.9 ; Arthritis M19.90 ; Tremor R25.1 ; Acute non-recurrent frontal sinusitis J01.10 and Blood in stool K92.1 [facility] [place] [address] [id number] [address] [place] [phone] September, [facility] [place] [address] [facility] [id number] [address] [place] [id number] September, Chronic obstructive pulmonar y disease, unspecified J44.9 [place] [address] [facility] [id number] [address] [place] [id number] September, Diabetes E11.9 [facility] [place] [address] [facility] [id number] [address] [place] [address] Aug, Other bipolar disorder F31.8 9 and Anxiety disorder, unspecified F41.9 [facility] [place] [address] [facility] [id number] [address] [place] [id number] Aug, [facility] [place] [address] [facility] [id number] [address] [place] [address] Aug, Diabetes E11.9 [facility] [place] [address] [facility] [id number] [address] [place] [id number] 18 Aug, 2015 [facility] [place] [address] [facility] [id number] [address] [place] [id number] 14 Aug, 2015 Diabetes E11.9 ; Fatigue R53 .83 and Dizziness R42 [place] [address] [id number] [address] [place] [id number] 13 Aug, 2015 Other bipolar disorder F31.8 9 [facility] [place] [address] [facility] [id number] [address] [place] [phone] 07 Aug, 2015 Generalized anxiety disorder F41.1 [facility] [place] [address] [facility] [id number] [address] [place] [address] Aug, Other bipolar disorder F31.8 9 and Anxiety disorder, unspecified F41.9 [facility] [place] [address] [id number] [address] [place] [id number] Aug, [facility] [place] [address] [id number] [address] [place] [id number] Jul, [facility] [place] [address] [id number] [address] [place] [id number] Jul, [facility] [place] [address] [id number] [address] [place] [id number] Jul, Bronchitis J40 [facility] [place] [address] [facility] [id number] [address] [place] [id number] Jul, Anxiety disorder F41.9 [facility] [place] [address] [id number] [address] [place] [id number] Jul, Other bipolar disorder F31.8 9 and Anxiety disorder, unspecified F41.9 [facility] [place] [address] [id number] [address] [place] [address] Jul, Other bipolar disorder F31.8 9 and Fibromyalgia M79.7 [facility], [place] [address] [id number] [address] [place] [phone] Jul, [facility] [place] [address] [id number] [address] [place] [id number] Jul, [facility] [place] [address] [id number] [address] [place] [id number] Jul, [facility] [place] [address] [id number] [address] [place] [id number] Jul, Other bipolar disorder F31.8 9 and Anxiety disorder, unspecified F41.9 [facility] [place] [address] [id number] [address] [place] [id number] Jun, GERD (gastroesophageal reflu x disease) K21.9 [facility], [place] [address] [id number] [address] [place] [id number] 08 Jun, 2015 [facility] [place] [address] [facility] [id number] [address] [place] [id number] May, [facility] [place] [address] [facility] [id number] [address] [place] [address] May, Diabetes E11.9 ; Back pain M 54.9 ; GERD (gastroesophageal reflux disease) K21.9 ; Hypertension I10 and Peripheral neuropathy G62.9 [facility] [place] [address] [id number] [address] [place] [id number] Mar, [facility], [place] [address] [facility] [id number] [place] [phone] Mar, [facility], [place] [address] [id number] Mar, Acute sinusitis J01.90 and O titis media, left H66.92 [facility] [place] [address] [id number] [address] [place] [address] Feb, [facility], [place] [address] [id number] [address] [place] [address] Feb, [facility] [place] [address] [id number] Feb, [facility] [place] [address] [id number] [address] [place] [id number] Feb, [facility] [place] [address] [id number] [address] [place] [address] Jan, [facility], [place] [address] [id number] [address] [place] [id number] Jan, Diabetes 250.00 and Back higinio n 724.5 [facility], [place] [address] [id number] [address] [place] [id number] Jan, [facility], [place] [address] [id number] [address] [place] [id number] Dec, Diabetes 250.00 ; Benign ess ential hypertension 401.1 and Allergic rhinitis 477.9 [facility] [place] [address] [id number] [address] [place] [id number] Dec, [facility] [place] [address] [id number] [address] [place] [id number] Dec, [facility] [place] [address] [id number] [address] [place] [id number] Dec, Psychosis 298.9 [facility] [place] [id number] [place] [address] Dec, Medication side effect 995.2 0 and Generalized anxiety disorder 300.02 [facility], [place] [id number] [place] [id number] Dec, Acquired cognitive dysfuncti on 294.9 [facility], [place] [address] [id number] [address] [place] [id number] Dec, [facility] [place] [address] [id number] [address] [place] [id number] Dec, Unspecified myalgia and myos itis 729.1 and Generalized anxiety disorder 300.02 [facility], [place] [address] [id number] [address] [place] [address] Nov, [facility], [place] [address] [id number] [address] [place] [id number] Nov, [facility] [place] [address] [id number] [address] [place] [address] Nov, [facility], [place] [address] [id number] [address] [place] [id number] Nov, Upper respiratory infection 465.9 and Chronic airway obstruction, not elsewhere classified 496 [facility] [place] [address] [id number] [address] [place] [id number] Nov, Hyponatremia 276.1 [facility], [place] [address] [id number] [address] [place] [id number] Oct, [facility] [place] [address] [id number] [address] [place] [id number] Oct, [facility] [place] [address] [id number] [address] [place] [phone] Oct, [facility] [place] [address] [id number] [address] [place] [id number] Oct, [facility] [place] [address] [id number] [address] [place] [id number] Oct, Hyponatremia 276.1 [facility] [place] [address] [id number] [address] [place] [id number] Oct, [facility], [place] [address] [facility] [id number] [address] [place] [id number] Oct, [facility] [place] [address] [facility] [id number] [address] [place] [id number] Oct, Generalized anxiety disorder 300.02 [facility] [place] [address] [id number] [address] [place] [address] Oct, Generalized anxiety disorder 300.02 and Diabetes 250.00 [facility] [place] [address] [id number] [address] [place] [id number] Aug, [facility] [place] [address] [facility] [id number] [address] [place] [id number] Aug, [facility] [place] [address] [id number] [address] [place] [id number] Jul, [facility] [place] [address] [id number] [address] [place] [id number] Jul, [facility] [place] [address] [id number] [address] [place] [id number] Jun, [facility] [place] [address] [id number] [address] [place] [id number] Jun, [facility] [place] [address] [facility] [id number] [address] [place] [id number] Jun, [facility] [address] [id number] [address] [place] [address], [place] [address] Jun, [facility] [address] [id number] [address] [place] [address], [place] [address] Jun, [facility] [address] [id number] [address] [place] [address], [place] [address] May, [facility] [address] [id number] [address] [place] [address], [place] [address] May, [facility] [address] [id number] [address] [place] [address], [place] [address] Apr, [facility] [address] [id number] [address] [place] [address], [place] [address] Apr, [facility] [address] [id number] [address] [place] [address], [place] [address] Apr, [facility] [address] [id number] [address] [place] [address], [place] [address] Apr, [facility] [address] [id number] [address] [place] [address], [place] [address] Apr, [facility] [address] [id number] [address] [place] [address], [place] [address] Apr, [facility] [address] [id number] [address] [place] [address], [place] [address] Apr, [facility] [address] [id number] [address] [place] [address] Apr, [facility] [address] [id number] [address] [place] [address], [place] [address] Feb, [facility] [address] [id number] [address] [place] [address], [place] [address] Feb, [facility] [address] [id number] [address] [place] [address], [place] [address] Jan, [facility] [address] [id number] [address] [place] [address], [place] [address] Jan, [facility] [address] [id number] [address] [place] [address], [place] [address] Dec, [facility] [address] [id number] [address] [place] [address], [place] [address] Dec, [facility] [address] [id number] [address] [place] [address], [place] [address] Dec, [facility] [address] [id number] [address] [place] [address], [place] [address] Nov, [facility] [address] [id number] [address] [place] [address], [place] [address] Nov, [facility] [address] [id number] [address] [place] [address], [place] [address] Nov, [facility] [address] [id number] [address] [place] [address], [place] [address] Oct, [facility] [address] [id number] [address] [place] [address], [place] [address] Oct, [facility] [address] [id number] [address] [place] [address], [place] [address] Oct, [facility] [address] [id number] [address] [place] [address], [place] [address] September, [facility] [address] [id number] [address] [place] [address], [place] [address] September, [facility] [address] [id number] [address] [place] [address], [place] [address] September, [facility] [address] [id number] [address] [place] [address], [place] [address] Aug, [facility] [address] [id number] [address] [place] [address], [place] [address] Aug, [facility] [address] [id number] [address] [place] [address], [place] [address] Aug, [facility] [address] [id number] [address] [place] [address], [place] [address] 16 Aug, 2011 [facility] [address] [id number] [address] [place] [address], [place] [address] Jul, [facility] [address] [id number] [address] [place] [address], [place] [address] Jun, [facility] [address] [id number] [address] [place] [address], [place] [address] 14 Jun, 2011 [facility] [address] [id number] [address] [place] [address], [place] [address] 13 Jun, 2011 [facility] [address] [id number] [address] [place] [address], [place] [address] 07 Jun, 2011 [facility] [address] [id number] [address] [place] [address], [place] [address] 03 Jun, 2011 [facility] [address] [id number] [address] [place] [address], [place] [address] May, [facility] [address] [id number] [address] [place] [address], [place] [address] May, [facility] [address] [id number] [address] [place] [address], [place] [address] May, [facility] [address] [id number] [address] [place] [address], [place] [address] May, [facility] [address] [id number] [address] [place] [address], [place] [address] Apr, [facility] [address] [id number] [address] [place] [address], [place] [address] Apr, [facility] [address] [id number] [address] [place] [address], [place] [address] 05 Apr, 2011 [facility] [address] [id number] [address] [place] [address], [place] [address] Mar, [facility] [address] [id number] [address] [place] [id number] 11 Mar, 2011 [facility] [place] [address] [id number] [address] [place] [address] Mar, [facility] [place] [address] [id number] [address] [place] [id number] 13 Feb, 2011 [facility] [place] [address] [id number] [address] [place] [id number] 13 Feb, 2011 [facility] [place] [address] [id number] [address] [place] [id number] 13 Feb, 2011 [facility] [place] [address] [id number] [address] [place] [address] Nov, [facility] [place] [address] [id number] [address] [place] [id number] September, [facility] [place] [address] [id number] [address] [place] [address] Aug, [facility] [place] [address] [id number] [address] [place] [id number] Jul, [facility] [place] [address] [id number] [address] [place] [address] May, [facility] [place] [address] [id number] [address] [place] [id number] Apr, [facility] [place] [address] [id number] [address] [place] [address] Apr, [facility] [place] [address] [id number] [address] [place] [id number] Apr, [facility] [place] [address] [id number] [address] [place] [id number] Apr, [facility] [place] [address] [id number] [address] [place] [id number] Apr, IMMUNIZATIONS No Known Immunizations SOCIAL HISTORY Never Assessed REASON FOR VISIT molina 03/02/2017 PLAN OF CARE VITAL SIGNS MEDICATIONS Medication [...]
--- OUTSIDE RECORDS SUMMARY | 2019-07-17 11:24 | XMS REPORT ---
Author Author Sujey GANDHI Organization [facility] Address [address] [place] [address] Care Team Providers Care Pt Escort Name Role Phone WHIT GANDHI Unavailable PROBLEMS Type Condition ICD9-CM Code [id number] Code Onset Dates Condition S tatus SNOMED Code Problem Diabetes E11.9 Active 07665070 Problem GERD (gastroesophageal reflux disease) K21.9 Active 269645005 Problem Anxiety disorder, unspecified F41.9 Active 258912452 Problem Hypertension I10 Active 6778887 3 Problem Other bipolar disorder F31.89 Active 92330021 Problem Fibromyalgia M79.7 Active 7409082 7 Problem Panic disorder with agoraphobia F40.01 Active 11732212 Problem Chronic obstructive pulmonary disease, unspecified J44.9 Active 77115804 Problem Lumbago with sciatica, left side M54.42 Active 935834739 Problem Migraine without aura and without status migrain osus, not intractable G43.009 Active 349316495 Problem Lumbago with sciatica, right side M54.41 Active 446179989 Problem Fibrocystic disease of right breast N60.11 Active 55298573 Problem Other chronic pain G89.29 Active 8 7777959 Problem Fibrocystic disease of left breast N60.12 Active 98208855 Problem Irritable bowel syndrome with constipation K58.1 Active 042642189 Problem Arthritis M19.90 Active 6527115 Problem Abnormal mammogram of right breast R92.8 Active 523540525 Problem Daytime somnolence R40.0 Active 1 29558263247 Problem Bipolar affective disorder, remission status unspecified F31.9 Active 42589967 Problem Chronic post-traumatic stress disorder (PTSD) F43. 12 Active 748120910 Problem Bipolar 1 disorder, depressed, moderate F31.32 Active 18616513 Problem Schizoaffective disorder, bipolar type F25.0 Active 45786053 Problem Irritable bowel syndrome with both constipation and diarrh ea K58.2 Active 85592770 Problem Slow transit constipation K59.01 Acti ve 79868134 Problem Essential tremor G25.0 Active 609 860566 Problem Acute non-recurrent maxillary sinusitis J01.00 Active 14575048 Problem Back pain M54.9 Active 861377809 Problem Bipolar 1 disorder, depressed, partial remission F 31.75 Active 69113534 Problem Attention deficit hyperactiv ity disorder (ADHD), predominantly inattentive type F90.0 Active 92873937 Problem Bipolar I disorder with depression F31.9 Active 36534467 Problem Panlobular emphysema J43.1 Active 0265509 Problem Akathisia G25.71 Active 693577253 Problem Mild persistent asthma without complication J45.30 Active 259604319 Problem Moderate persistent asthma without complication J4 5.40 Active 237858023 ALLERGIES No Information ENCOUNTERS Encounter Location Date Diagnosis [facility] [address] [facility] [id number] [address] [place] [id number] Mar, [place] [address] [facility] [id number] [address] [place] [phone] Jan, [place] [address] [facility] [id number] [address] [place] [id number] Jan, [facility] [address] [facility] [id number] [address] [place] [id number] 20 Jan, 2018 Cerebrovascular accident (CV A) due to occlusion of right cerebellar artery I63.541 [facility] [address] [facility] [id number] [address] [place] [id number] 19 Jan, 2018 [facility] [address] [facility] [id number] [address] [place] [id number] 13 Jan, 2018 Arthritis M19.90 [facility] [address] [facility] [id number] [address] [place] [id number] 07 Jan, 2018 [place] [address] [facility] [id number] [address] [place] [id number] 04 Jan, 2018 Abnormal mammogram of right breast R92.8 [facility] [address] [facility] [id number] [address] [place] [id number] Dec, Daytime somnolence R40.0 and Right otitis media with effusion H65.91 [facility] [address] [facility] [id number] [address] [place] [id number] Dec, [facility] [address] [facility] [id number] [address] [place] [id number] Dec, Cerebrovascular accident (CV A) due to occlusion of right cerebellar artery I63.541 [facility] [address] [facility] [id number] [address] [place] [id number] Dec, [facility] [address] [facility] [id number] [address] [place] [id number] Dec, [place] [address] [facility] [id number] [address] [place] [id number] Nov, Bipolar 1 disorder, depresse d, partial remission F31.75 and Panic disorder with agoraphobia F40.01 [place] [address] [facility] [id number] [address] [place] [id number] Nov, Panlobular emphysema J43.1 [facility] [address] [facility] [id number] [address] [place] [id number] Nov, Cerebrovascular accident (CV A) due to occlusion of right cerebellar artery I63.541 and Acute non-recurrent maxillary sinusitis J01.00 [place] [address] [place] [id number] [address] [place] [id number] Nov, Panlobular emphysema J43.1 [facility] [address] [facility] [id number] [address] [place] [id number] Nov, [facility] [address] [facility] [id number] [address] [place] [id number] Nov, [facility] [address] [facility] [id number] [address] [place] [id number] Nov, [facility] [address] [facility] [id number] [address] [place] [id number] Nov, [facility] [address] [id number] [address] [place] [id number] Nov, [facility] [address] [facility] [id number] [address] [place] [id number] Nov, [facility] [address] [id number] [address] [place] [id number] Nov, [facility] [address] [facility] [id number] [address] [place] [id number] Nov, Mild persistent asthma witho ut complication J45.30 and Irritable bowel syndrome with both constipation and diarrhea K58.2 [facility] [address] [id number] [address] [place] [id number] Nov, [facility] [address] [facility] [id number] [address] [place] [id number] Oct, [facility] [address] [facility] [id number] [address] [place] [id number] Oct, [facility] [address] [facility] [id number] [address] [place] [id number] Oct, Type 2 diabetes mellitus wit h diabetic neuropathy, unspecified whether senior living insulin use E11.40 ; Diabetes E11.9 ; Slow transit constipation K59.01 ; Edema of both legs R60.0 and Dysfunction of right eustachian tube H69.81 [facility] [address] [facility] [id number] [address] [place] [id number] Oct, Frequent headaches R51 [facility] [address] [id number] [address] [place] [id number] Oct, [facility] [address] [facility] [id number] [address] [place] [id number] Oct, [facility] [address] [facility] [id number] [address] [place] [id number] Oct, [facility] [address] [facility] [id number] [address] [place] [id number] Oct, [facility] [address] [id number] [address] [place] [phone] Oct, [facility] [address] [id number] [address] [place] [id number] Oct, [facility] [address] [facility] [id number] [address] [place] [id number] Oct, [facility] [address] [facility] [id number] [address] [place] [id number] Oct, [facility] [address] [id number] [address] [place] [phone] September, Frequent headaches R51 [facility] [address] [facility] [id number] [address] [place] [id number] September, Bilateral otitis media with effusion H65.93 ; Dizziness R42 and Essential tremor G25.0 [facility] [address] [facility] [id number] [address] [place] [id number] September, Chronic obstructive pulmonar y disease, unspecified COPD type J44.9 [facility] [address] [id number] [address] [place] [id number] September, Chronic obstructive pulmonar y disease, unspecified COPD type J44.9 [facility] [address] [facility] [id number] [address] [place] [id number] September, Migraine without aura and wi thout status migrainosus, not intractable G43.009 [facility] [address] [facility] [id number] [address] [place] [id number] September, [facility] [address] [facility] [id number] [address] [place] [id number] September, [facility] [address] [facility] [id number] [address] [place] [id number] September, [facility] [address] [facility] [id number] [address] [place] [id number] September, Frequent headaches R51 [facility] [address] [facility] [id number] [address] [place] [id number] Aug, [facility] [address] [facility] [id number] [address] [place] [id number] Aug, Breast mass, right N63.10 [facility] [address] [facility] [id number] [address] [place] [id number] Aug, Breast lump N63.0 [facility] [address] [facility] [id number] [address] [place] [id number] Aug, [facility] [address] [place] [id number] [address] [place] [id number] Aug, Bipolar affective disorder, remission status unspecified F31.9 and Diabetes E11.9 [facility] [address] [place] [id number] [place] [id number] Aug, Diabetes E11.9 ; Schizoaffec tive disorder, bipolar type F25.0 ; Pharyngitis due to other organism J02.8 ; Panlobular emphysema J43.1 and Irritable bowel syndrome with both constipation and diarrhea K58.2 [place] [address] [id number] Aug, Abnormal mammogram R92.8 [facility] [address] [facility] [id number] [address] [place] [id number] Aug, [facility] [address] [id number] Aug, Bipolar 1 disorder, depresse d, moderate F31.32 ; Panic disorder with agoraphobia F40.01 and Chronic post-traumatic stress disorder (PTSD) F43.12 [facility] [address] [place] [id number] [address] [place] [id number] Aug, [facility] [address] [place] [id number] [address] [place] [id number] Aug, [facility] [address] [id number] Aug, [facility] [address] [id number] [address] [place] [id number] 26 Jul, 2017 [facility] [address] [id number] [address] [place] [id number] 20 Jul, 2017 Mild persistent asthma witho ut complication J45.30 [facility] [address] [id number] [address] [place] [id number] 19 Jul, 2017 Mild persistent asthma witho ut complication J45.30 [facility] [address] [id number] [address] [place] [id number] 15 Jul, 2017 Bipolar affective disorder, remission status unspecified F31.9 ; Diabetes E11.9 and Irritable bowel syndrome with constipation K58.1 [facility] [address] [facility] [id number] [address] [place] [id number] 13 Jul, 2017 [facility] [address] [facility] [id number] [address] [place] [id number] Jul, [facility] [address] [facility] [id number] [address] [place] [id number] 08 Jul, 2017 Frequent headaches R51 [facility] [address] [facility] [id number] [address] [place] [id number] 07 Jul, 2017 [facility] [address] [facility] [id number] [address] [place] [id number] Jul, [facility] [address] [facility] [id number] [address] [place] [id number] Jul, [facility] [address] [facility] [id number] [address] [place] [id number] Jul, Frequent headaches R51 ; Fib rocystic disease of left breast N60.12 ; Fibrocystic disease of right breast N60.11 and Diabetes E11.9 [facility] [address] [facility] [id number] [address] [place] [id number] 02 Jul, 2017 [facility] [address] [facility] [id number] [address] [place] [id number] Jul, [facility] [address] [facility] [id number] [address] [place] [id number] 21 Jun, 2017 Exudative tonsillitis J03.90 [facility] [address] [facility] [id number] [address] [place] [id number] 20 Jun, 2017 [facility] [address] [facility] [id number] [address] [place] [id number] 19 Jun, 2017 [facility] [address] [facility] [id number] [place] [id number] 15 Jun, 2017 Mild persistent asthma witho ut complication J45.30 ; Chronic obstructive pulmonary disease, unspecified COPD type J44.9 and Exudative tonsillitis J03.90 [place] [address] [facility] [id number] [address] [place] [id number] 13 Jun, 2017 Encounter for immunization Z 23 [facility] [address] [facility] [id number] [address] [place] [id number] 12 Jun, 2017 [facility] [address] [facility] [id number] [address] [place] [id number] Jun, [facility] [address] [facility] [id number] [address] [place] [id number] 09 Jun, 2017 [facility] [address] [facility] [id number] [address] [place] [id number] 06 Jun, 2017 Tonsillitis J03.90 [facility] [address] [facility] [id number] [address] [place] [id number] 05 Jun, 2017 [facility] [address] [facility] [id number] [address] [place] [id number] 03 Jun, 2017 Acute non-recurrent maxillar y sinusitis J01.00 [facility] [address] [facility] [id number] [address] [place] [id number] 02 Jun, 2017 [facility] [address] [place] [id number] [address] [place] [id number] May, [facility] [address] [facility] [id number] [address] [place] [id number] May, [facility] [address] [facility] [id number] [address] [place] [id number] May, GERD (gastroesophageal reflu x disease) K21.9 [facility] [address] [facility] [id number] [address] [place] [id number] May, Migraine without aura and wi thout status migrainosus, not intractable G43.009 [facility] [address] [facility] [id number] [address] [place] [phone] May, [facility] [address] [facility] [id number] [address] [place] [id number] May, [facility] [address] [place] [id number] [address] [place] [id number] May, Panlobular emphysema J43.1 a nd Acute non-recurrent maxillary sinusitis J01.00 [facility] [address] [place] [id number] [address] [place] [id number] May, Bipolar 1 disorder, depresse d, moderate F31.32 ; Panic disorder with agoraphobia F40.01 and Akathisia G25.71 [facility] [address] [place] [id number] [address] [place] [id number] Apr, [facility] [address] [facility] [id number] [address] [place] [phone] Apr, [facility] [address] [facility] [id number] [address] [place] [id number] Apr, Acute non-recurrent maxillar y sinusitis J01.00 [facility] [address] [facility] [id number] [address] [place] [id number] Apr, Panlobular emphysema J43.1 [facility] [address] [place] [id number] [address] [place] [id number] Apr, [facility] [address] [facility] [id number] [address] [place] [id number] Apr, Exudative tonsillitis J03.90 and Sore throat J02.9 [facility] [address] [facility] [id number] [address] [place] [id number] 17 Mar, 2017 [facility] [address] [facility] [id number] [address] [place] [id number] 15 Mar, 2017 Acute non-recurrent maxillar y sinusitis J01.00 [facility] [address] [facility] [id number] [address] [place] [id number] Mar, [facility] [address] [facility] [id number] [address] [place] [id number] Mar, Panlobular emphysema J43.1 a nd Diabetes E11.9 [place] [address] [place] [id number] [address] [place] [id number] 06 Mar, 2017 [facility] [address] [facility] [id number] [address] [place] [id number] 24 Feb, 2017 Wheezing R06.2 and Acute rec urrent pansinusitis J01.41 [facility] [address] [facility] [id number] [address] [place] [id number] Feb, [facility] [address] [facility] [id number] [address] [place] [id number] Feb, Acute non-recurrent maxillar y sinusitis J01.00 [facility] [address] [facility] [id number] [address] [place] [id number] Feb, Chronic obstructive pulmonar y disease, unspecified J44.9 [facility] [address] [facility] [id number] [address] [place] [id number] Feb, Hypoxemia R09.02 and Chronic obstructive pulmonary disease, unspecified J44.9 [facility] [address] [facility] [id number] [address] [place] [id number] 28 Sep, 2017 Bipolar 1 disorder, depresse d, moderate F31.32 ; Panic disorder with agoraphobia F40.01 ; Chronic post-traumatic stress disorder (PTSD) F43.12 ; Diabetes E11.9 and Moderate persistent asthma without complication J45.40 [facility] [address] [id number] [address] [place] [id number] 22 Jan, 2017 [facility] [address] [id number] [address] [place] [id number] 19 Jan, 2017 Acute non-recurrent maxillar y sinusitis J01.00 [facility] [address] [id number] [address] [place] [id number] 18 Jan, 2017 [facility] [address] [id number] [address] [place] [id number] 18 Jan, 2017 [facility] [address] [facility] [id number] [address] [place] [id number] Jan, [facility] J[facility].40 and Hypoxemia R09.02 [facility] [address] [id number] [address] [place] [id number] Jan, Moderate persistent asthma w ithout complication J45.40 and Hypoxemia R09.02 [facility] [address] [id number] [address] [place] [id number] Jan, [facility] [address] [id number] [address] [place] [id number] Dec, Acute non-recurrent maxillar y sinusitis J01.00 [facility] [address] [id number] [address] [place] [id number] Dec, Chronic obstructive pulmonar y disease, unspecified J44.9 [facility] [address] [id number] [address] [place] [id number] Dec, [facility] [address] [id number] [address] [place] [id number] Dec, Mild persistent asthma witho ut complication J45.30 and Other chronic pain G89.29 [facility] [address] [id number] [address] [place] [id number] Nov, [facility] [address] [id number] [address] [place] [id number] Nov, Acute non-recurrent maxillar y sinusitis J01.00 [facility] [address] [id number] [address] [place] [id number] Nov, [facility] [address] [id number] [address] [place] [id number] Nov, [facility] [address] [id number] [address] [place] [id number] Oct, [facility] [address] [facility] [id number] [address] [place] [id number] Oct, Bipolar 1 disorder, depresse d, partial remission F31.75 ; Panic disorder with agoraphobia F40.01 and Chronic post-traumatic stress disorder (PTSD) F43.12 [facility] [address] [id number] [address] [place] [id number] Oct, Acute non-recurrent maxillar y sinusitis J01.00 [facility] [address] [facility] [id number] [address] [place] [id number] Oct, [facility] [address] [facility] [id number] [address] [place] [id number] Oct, Diabetes E11.9 [facility] [address] [facility] [id number] [address] [place] [id number] September, Diabetes E11.9 [facility] [address] [id number] [address] [place] [id number] September, Diabetes E11.9 and Sinus tac hycardia R00.0 [facility] [address] [id number] [address] [place] [id number] September, [facility] [address] [facility] [id number] [address] [place] [phone] September, [facility] [address] [id number] [address] [place] [id number] Aug, Diabetes E11.9 and Lumbago w ith sciatica, right side M54.41 [facility] [address] [id number] [address] [place] [id number] Aug, [facility] [address] [facility] [id number] [address] [place] [id number] Jul, Bipolar 1 disorder, depresse d, moderate F31.32 ; Panic disorder with agoraphobia F40.01 and Chronic post-traumatic stress disorder (PTSD) F43.12 [facility] [address] [id number] [address] [place] [id number] Jul, Sore throat J02.9 [facility] [address] [facility] [id number] [address] [place] [id number] Jul, [facility] [address] [facility] [id number] [address] [place] [id number] Jul, [facility] [address] [facility] [facility] [id number] [address] [place] [id number] Jul, [facility] [address] [facility] [id number] [address] [place] [id number] Jul, [facility] [address] [facility] [id number] [address] [place] [id number] Jul, Sore throat J02.9 and Pharyn gitis, unspecified etiology J02.9 [facility] [address] [id number] [address] [place] [id number] Jun, [facility] [address] [facility] [id number] [address] [place] [phone] Jun, Diabetes E11.9 [facility] [address] [id number] [address] [place] [id number] Jun, [facility] [address] [facility] [id number] [address] [place] [id number] Jun, [facility] [address] [id number] [address] [place] [id number] Jun, [facility] [address] [id number] [address] [place] [id number] Jun, [facility] [address] [id number] [address] [place] [phone] Jun, [facility] [address] [id number] [address] [place] [id number] Jun, [facility] [address] [id number] [address] [place] [id number] Jun, [facility] [address] [facility] [id number] [address] [place] [id number] Jun, [facility] [address] [facility] [id number] [address] [place] [address] May, Diabetes E11.9 ; Other chron ic pain G89.29 ; Acute recurrent maxillary sinusitis J01.01 ; Bipolar I disorder with depression F31.9 and Anxiety disorder, unspecified F41.9 [facility] [address] [facility] [id number] [address] [place] [id number] May, [facility] [address] [facility] [id number] [address] [place] [phone] May, Diabetes E11.9 ; Bipolar I d isorder with depression F31.9 ; Anxiety disorder, unspecified F41.9 ; Other chronic pain G89.29 and Acute recurrent maxillary sinusitis J01.01 [facility] [address] [id number] [address] [place] [id number] May, [facility] [address] [facility] [id number] [address] [place] [id number] May, Attention deficit hyperactiv ity disorder (ADHD), predominantly inattentive type F90.0 [facility] [address] [facility] [id number] [address] [place] [id number] May, [facility] [address] [id number] [address] [place] [id number] Apr, Attention deficit hyperactiv ity disorder (ADHD), predominantly inattentive type F90.0 and Non-seasonal allergic rhinitis due to other allergic trigger J30.89 [facility] [address] [id number] [address] [place] [address] Apr, Bipolar 1 disorder, depresse d, moderate F31.32 ; Panic disorder with agoraphobia F40.01 and Chronic post-traumatic stress disorder (PTSD) F43.12 [facility] [address] [id number] [address] [place] [address] Apr, Dental examination Z01.20 [facility] [address] [id number] [address] [place] [phone] Mar, [place] [address] [id number] [address] [place] [id number] Mar, [place] [address] [id number] [address] [place] [id number] Mar, Bipolar I disorder with depr ession F31.9 and Anxiety disorder, unspecified F41.9 [place] [address] [id number] [address] [place] [id number] 08 Mar, 2016 Panic disorder with agorapho syd F40.01 ; Bipolar 1 disorder, depressed, moderate F31.32 and Chronic post-traumatic stress disorder (PTSD) F43.12 [place] [address] [id number] [address] [place] [address] Mar, [place] [address] [id number] [address] [place] [id number] Mar, Dental caries K02.9 [place] [address] [id number] [address] [place] [id number] Feb, Lumbago with sciatica, left side M54.42 ; Lumbago with sciatica, right side M54.41 and Other chronic pain G89.29 [facility] [address] [id number] [address] [place] [id number] 17 Feb, 2016 [facility] [address] [id number] [address] [place] [id number] 14 Feb, 2016 [facility] [address] [facility] [id number] [address] [place] [id number] 13 Feb, 2016 Bipolar I disorder with depr ession F31.9 ; PTSD (post-traumatic stress disorder) F43.10 and Mood disorder F39 [facility] [address] [facility] [id number] [address] [place] [id number] 13 Feb, 2016 [facility] [address] [facility] [id number] [address] [place] [id number] 11 Feb, 2016 Dental examination Z01.20 [facility] [address] [facility] [id number] [address] [place] [id number] 07 Feb, 2016 [facility] [address] [facility] [id number] [address] [place] [phone] 03 Feb, 2016 Acute bronchitis, unspecifie d organism J20.9 [facility] [address] [facility] [id number] [address] [place] [id number] 26 Jan, 2016 Mood disorder F39 ; Migraine without aura and without status migrainosus, not intractable G43.009 ; Irritable bowel syndrome, unspecified type K58.9 ; Diabetes E11.9 and Encounter for immunization Z23 [facility] [address] [facility] [id number] [address] [place] [id number] 15 Jan, 2016 [facility] [address] [facility] [id number] [address] [place] [id number] 06 Jan, 2016 [facility] [address] [facility] [id number] [address] [place] [id number] Jan, [facility] [address] [facility] [id number] [address] [place] [id number] Jan, [facility] [address] [facility] [id number] [address] [place] [id number] Jan, [facility] [address] [facility] [id number] [address] [place] [id number] Dec, Bipolar I disorder with depr ession F31.9 ; PTSD (post-traumatic stress disorder) F43.10 and Panic disorder with agoraphobia F40.01 [facility] [address] [place] [id number] [address] [place] [id number] Dec, Chronic obstructive pulmonar y disease, unspecified COPD type J44.9 ; Tremor R25.1 and Anxiety F41.9 [facility] [address] [facility] [id number] [address] [place] [id number] Dec, [facility] [address] [place] [id number] [place] [address] Nov, Tremors of nervous system R2 5.1 and Cramping of feet R25.2 [facility] [address] [place] [id number] [address] [place] [id number] Nov, [facility] [address] [place] [id number] [address] [place] [id number] Nov, [facility] [address] [place] [id number] [address] [place] [id number] Oct, Chronic obstructive pulmonar y disease, unspecified J44.9 [facility] [address] [place] [id number] [address] [place] [id number] Oct, [facility] [address] [facility] [id number] [address] [place] [id number] Oct, Tremor R25.1 [facility] [address] [facility] [id number] [address] [place] [id number] Oct, Bipolar I disorder with depr ession F31.9 ; Diabetes E11.9 ; PTSD (post-traumatic stress disorder) F43.10 and Panic disorder with agoraphobia F40.01 [facility] [address] [place] [id number] [address] [place] [phone] Oct, Mood disorder F39 [facility] [address] [facility] [id number] [address] [place] [id number] September, [place] [address] [facility] [id number] [address] [place] [id number] September, Diabetes E11.9 ; Bipolar I d isorder with depression F31.9 ; PTSD (post-traumatic stress disorder) F43.10 and Panic disorder with agoraphobia F40.01 [place] [address] [facility] [id number] [address] [place] [id number] September, Mood disorder F39 ; Schizoaf fective disorder, unspecified type F25.9 ; Arthritis M19.90 ; Tremor R25.1 ; Acute non-recurrent frontal sinusitis J01.10 and Blood in stool K92.1 [place] [address] [facility] [id number] [address] [place] [id number] September, [place] [address] [facility] [id number] [address] [place] [id number] September, Chronic obstructive pulmonar y disease, unspecified J44.9 [place] [address] [facility] [id number] [address] [place] [address] September, Diabetes E11.9 [place] [address] [facility] [id number] [address] [place] [id number] Aug, Other bipolar disorder F31.8 9 and Anxiety disorder, unspecified F41.9 [place] [address] [facility] [id number] [address] [place] [id number] Aug, [place] [address] [facility] [id number] [address] [place] [id number] Aug, Diabetes E11.9 [place] [address] [facility] [id number] [address] [place] [id number] 18 Aug, 2015 [place] [address] [place] [id number] [address] [place] [id number] 14 Aug, 2015 Diabetes E11.9 ; Fatigue R53 .83 and Dizziness R42 [facility] [address] [id number] [address] [place] [id number] 13 Aug, 2015 Other bipolar disorder F31.8 9 [facility] [address] [id number] [address] [place] [id number] 07 Aug, 2015 Generalized anxiety disorder F41.1 [facility] [address] [id number] [address] [place] [id number] 07 Aug, 2015 Other bipolar disorder F31.8 9 and Anxiety disorder, unspecified F41.9 [facility] [address] [id number] [address] [place] [id number] Aug, [facility] [address] [id number] [address] [place] [id number] 29 Jul, 2015 [facility] [address] [id number] [address] [place] [id number] 24 Jul, 2015 [facility] [address] [id number] [address] [place] [id number] 23 Jul, 2015 Bronchitis J40 [facility] [address] [id number] [address] [place] [id number] 22 Jul, 2015 Anxiety disorder F41.9 [facility] [address] [id number] [address] [place] [id number] Jul, Other bipolar disorder F31.8 9 and Anxiety disorder, unspecified F41.9 [facility] [address] [id number] [address] [place] [id number] 18 Jul, 2015 Other bipolar disorder F31.8 9 and Fibromyalgia M79.7 [facility] [address] [id number] [address] [place] [id number] 10 Jul, 2015 [facility] [address] [id number] [address] [place] [id number] 09 Jul, 2015 [facility] [address] [id number] [address] [place] [phone] Jul, [facility] [address] [place] [id number] [address] [place] [phone] Jul, Other bipolar disorder F31.8 9 and Anxiety disorder, unspecified F41.9 [facility] [address] [place] [id number] [address] [place] [phone] Jun, GERD (gastroesophageal reflu x disease) K21.9 [facility] [address] [id number] Jun, [facility] [address] [address] May, [facility] [address] [address] May, Diabetes E11.9 ; Back pain M 54.9 ; GERD (gastroesophageal reflux disease) K21.9 ; Hypertension I10 and Peripheral neuropathy G62.9 [facility] [address] [id number] Mar, [facility] [address] [id number] Mar, [facility] [address] [id number] Mar, Acute sinusitis J01.90 and O titis media, left H66.92 [facility] [address] [place] [id number] [address] [place] [id number] Feb, [facility] [address] [id number] Feb, [facility] [address] [address] Feb, [facility] [address] [id number] Feb, [facility] [address] [id number] Jan, [facility] [address] [facility] [id number] [address] [place] [id number] Jan, Diabetes 250.00 and Back higinio n 724.5 [facility] [address] [facility] [id number] [address] [place] [id number] Jan, [facility] [address] [facility] [id number] [address] [place] [id number] Dec, Diabetes 250.00 ; Benign ess ential hypertension 401.1 and Allergic rhinitis 477.9 [facility] [address] [facility] [id number] [address] [place] [id number] Dec, [facility] [address] [facility] [id number] [address] [place] [id number] Dec, [facility] [address] [place] [id number] [address] [place] [id number] Dec, Psychosis 298.9 [facility] [address] [place] [id number] [address] [place] [id number] Dec, Medication side effect 995.2 0 and Generalized anxiety disorder 300.02 [facility] [address] [place] [id number] [address] [place] [id number] Dec, Acquired cognitive dysfuncti on 294.9 [facility] [address] [place] [id number] [address] [place] [id number] Dec, [facility] [address] [place] [id number] [address] [place] [id number] Dec, Unspecified myalgia and myos itis 729.1 and Generalized anxiety disorder 300.02 [facility] [address] [facility] [id number] [address] [place] [id number] Nov, [facility] [address] [facility] [id number] [address] [place] [phone] Nov, [facility] [address] [place] [id number] [address] [place] [id number] Nov, [facility] [address] [id number] [address] [place] [id number] Nov, Upper respiratory infection 465.9 and Chronic airway obstruction, not elsewhere classified 496 [facility] [address] [id number] [address] [place] [id number] Nov, Hyponatremia 276.1 [facility] [address] [id number] [address] [place] [id number] Oct, [facility] [address] [id number] [address] [place] [id number] Oct, [facility] [address] [id number] [address] [place] [id number] Oct, [facility] [address] [facility] [id number] [address] [place] [id number] Oct, [facility] [address] [facility] [id number] [address] [place] [id number] Oct, Hyponatremia 276.1 [facility] [address] [id number] [address] [place] [id number] Oct, [facility] [address] [facility] [id number] [address] [place] [id number] Oct, [facility] [address] [facility] [id number] [address] [place] [id number] Oct, Generalized anxiety disorder 300.02 [facility] [address] [facility] [id number] [address] [place] [id number] Oct, Generalized anxiety disorder 300.02 and Diabetes 250.00 [facility] [address] [id number] [address] [place] [id number] Aug, [facility] [address] [facility] [id number] [address] [place] [id number] Aug, [facility] [address] [facility] [id number] [address] [place] [id number] Jul, [facility] [address] [id number] [address] [place] [address], [place] [address] Jul, [facility] [address] [id number] [address] [place] [address], [place] [address] Jun, [facility] [address] [id number] [address] [place] [address], [place] [address] Jun, [facility] [address] [id number] [address] [place] [address], [place] [address] Jun, [facility] [address] [id number] [address] [place] [address], [place] [address] Jun, [facility] [address] [id number] [address] [place] [address], [place] [address] Jun, [facility] [address] [id number] [address] [place] [address], [place] [address] May, [facility] [address] [id number] [address] [place] [address], [place] [address] May, [facility] [address] [id number] [address] [place] [address], [place] [address] Apr, [facility] [address] [id number] [address] [place] [address], [place] [address] Apr, [facility] [address] [id number] [address] [place] [address], [place] [address] Apr, [facility] [address] [id number] [address] [place] [address], [place] [address] 18 Apr, 2013 [facility] [address] [id number] [address] [place] [address], [place] [address] Apr, [facility] [address] [id number] [address] [place] [address], [place] [address] Apr, [facility] [address] [id number] [address] [place] [address], [place] [address] Apr, [facility] [address] [id number] [address] [place] [address], [place] [address] Apr, [facility] [address] [id number] [address] [place] [address], [place] [address] Feb, [facility] [address] [id number] [address] [place] [address], [place] [address] Feb, [facility] [address] [id number] [address] [place] [address], [place] [address] Jan, [facility] [address] [id number] [address] [place] [address], [place] [address] Jan, [facility] [address] [id number] [address] [place] [address], [place] [address] Dec, [facility] [address] [id number] [address] [place] [address], [place] [address] Dec, [facility] [address] [id number] [address] [place] [address], [place] [address] Dec, [facility] [address] [id number] [address] [place] [address], [place] [address] Nov, [facility] [address] [id number] [address] [place] [address], [place] [address] Nov, [facility] [address] [id number] [address] [place] [address], [place] [address] Nov, [facility] [address] [id number] [address] [place] [address], [place] [address] Oct, [facility] [address] [id number] [address] [place] [address], [place] [address] Oct, [facility] [address] [id number] [address] [place] [address], [place] [address] Oct, [facility] [address] [id number] [address] [place] [address], [place] [address] September, [facility] [address] [id number] [address] [place] [address], [place] [address] September, [facility] [address] [id number] [address] [place] [address], [place] [address] September, [facility] [address] [id number] [address] [place] [address], [place] [address] 25 Aug, 2011 [facility] [address] [id number] [address] [place] [address], [place] [address] 20 Aug, 2011 [facility] [address] [id number] [address] [place] [address], [place] [address] 19 Aug, 2011 [facility] [address] [id number] [address] [place] [address], [place] [address] 16 Aug, 2011 [facility] [address] [id number] [address] [place] [address], [place] [address] Jul, [facility] [address] [id number] [address] [place] [address], [place] [address] 21 Jun, 2011 [facility] [address] [id number] [address] [place] [address], [place] [address] 14 Jun, 2011 [facility] [address] [id number] [address] [place] [address], [place] [address] 13 Jun, 2011 [facility] [address] [id number] [address] [place] [address], [place] [address] 07 Jun, 2011 [facility] [address] [id number] [address] [place] [address], [place] [address] 03 Jun, 2011 [facility] [address] [id number] [address] [place] [address], [place] [address] May, [facility] [address] [id number] [address] [place] [address], [place] [address] May, [facility] [address] [id number] [address] [place] [address], [place] [address] 09 May, 2011 [facility] [address] [id number] [address] [place] [address], [place] [address] 04 May, 2011 [facility] [address] [id number] [address] [place] [address] [address] 20 Apr, 2011 [facility] [address] [id number] [address] [place] [address], [place] [address] 13 Apr, 2011 [facility] [address] [id number] [address] [place] [address], [place] [address] 05 Apr, 2011 [facility] [address] [id number] [address] [place] [address], [place] [address] Mar, [facility] [address] [id number] [address] [place] [address], [place] [address] Mar, [facility] [address] [id number] [address] [place] [address], [place] [address] Mar, [facility] [address] [id number] [address] [place] [address], [place] [address] 13 Feb, 2011 [facility] [address] [id number] [address] [place] [address], [place] [address] Feb, [facility] [address] [id number] [address] [place] [address], [place] [address] 13 Feb, 2011 [facility] [address] [id number] [address] [place] [address], [place] [address] Nov, [facility] [address] [id number] [address] [place] [address], [place] [address] 16 Sep, 2010 [facility] [address] [id number] [address] [place] [address], [place] [address] Aug[facility] [facility] [address] [id number] [address] [place] [address], [place] [address] 14 Jul, 2010 [facility] [address] [id number] [address] [place] [address], [place] [id number] May, [facility] [address] [id number] [address] [place] [address], [place] [address] 31 Apr, 2010 [facility] [address] [id number] [address] [place] [address], [place] [address] 30 Apr, 2010 [facility] [address] [id number] [address] [place] [id number] Apr, [facility] [address] [facility] [id number] [address] [place] [id number] Apr, [facility] [address] [facility] [id number] [address] [place] [id number] Apr, IMMUNIZATIONS No Known Immunizations SOCIAL HISTORY Never Assessed REASON FOR VISIT Mammogram Order PLAN OF CARE VITAL SIGNS MEDICATIONS Unknown Medications RESULTS Name Result Date Reference Range Mammogram Dx, Right 2018-01-31 PROCEDURES No Known procedures INSTRUCTIONS MEDICATIONS ADMINISTERED [...]
--- OUTSIDE RECORDS SUMMARY | 2019-07-17 11:24 | XMS REPORT ---
Author Author Sujey GANDHI Organization [facility] Address [address] [place] [address] Care Team Providers Care Senior Category Manager Name Role Phone WHIT GANDHI Unavailable PROBLEMS Type Condition ICD9-CM Code OMQ11-MP Code Onset Dates Condition S tatus SNOMED Code Problem Diabetes E11.9 Active 45064154 Problem GERD (gastroesophageal reflux disease) K21.9 Active 110672664 Problem Anxiety disorder, unspecified F41.9 Active 674565427 Problem Hypertension I10 Active 3871692 3 Problem Other bipolar disorder F31.89 Active 86091984 Problem Fibromyalgia M79.7 Active 6532010 7 Problem Panic disorder with agoraphobia F40.01 Active 22748487 Problem Chronic obstructive pulmonary disease, unspecified J44.9 Active 88307917 Problem Lumbago with sciatica, left side M54.42 Active 389991737 Problem Migraine without aura and without status migrain osus, not intractable G43.009 Active 010098990 Problem Lumbago with sciatica, right side M54.41 Active 241381706 Problem Fibrocystic disease of right breast N60.11 Active 59195963 Problem Other chronic pain G89.29 Active 8 0416669 Problem Fibrocystic disease of left breast N60.12 Active 36873563 Problem Irritable bowel syndrome with constipation K58.1 Active 239195658 Problem Arthritis M19.90 Active 9554457 Problem Abnormal mammogram of right breast R92.8 Active 635706014 Problem Daytime somnolence R40.0 Active 1 33229612638 Problem Bipolar affective disorder, remission status unspecified F31.9 Active 70816723 Problem Chronic post-traumatic stress disorder (PTSD) F43. 12 Active 329891620 Problem Bipolar 1 disorder, depressed, moderate F31.32 Active 76736189 Problem Schizoaffective disorder, bipolar type F25.0 Active 93251169 Problem Irritable bowel syndrome with both constipation and diarrh ea K58.2 Active 96290908 Problem Slow transit constipation K59.01 Acti ve 06657896 Problem Essential tremor G25.0 Active 609 730904 Problem Acute non-recurrent maxillary sinusitis J01.00 Active 80044488 Problem Back pain M54.9 Active 469089821 Problem Bipolar 1 disorder, depressed, partial remission F 31.75 Active 37825061 Problem Attention deficit hyperactiv ity disorder (ADHD), predominantly inattentive type F90.0 Active 94435245 Problem Bipolar I disorder with depression F31.9 Active 94003116 Problem Panlobular emphysema J43.1 Active 8588408 Problem Akathisia G25.71 Active 307161927 Problem Mild persistent asthma without complication J45.30 Active 060125601 Problem Moderate persistent asthma without complication J4 5.40 Active 643521088 ALLERGIES Substance Reaction Event Type Date Status Penicillin V Potassium Unknown Drug Allergy Dec, Activ e Effexor anaphylaxis Drug Allergy Dec, Active Darvocet-N 50 Unknown Drug Allergy Dec, Active Cefdinir Swelling Drug Allergy Dec, Active Benadryl vomiting/swelling Drug Allergy Dec, Active ENCOUNTERS Encounter Location Date Diagnosis [facility] [address] [id number] [address] [place] [phone] Mar, [facility] [address] [id number] [address] [place] [phone] Feb, [facility] [address] [id number] [address] [place] [phone] Jan, [facility] [address] [id number] [address] [place] [phone] Jan, Hypertension I10 ; Fibromyal medhat M79.7 and Lumbago with sciatica, left side M54.42 [facility] [address] [facility] [id number] [address] [place] [phone] Jan, [facility] [address] [facility] [id number] [address] [place] [phone] Jan, Cerebrovascular accident (CV A) due to occlusion of right cerebellar artery I63.541 [facility] [address] [id number] [address] [place] [phone] 19 Jan, 2018 [place] [address] [facility] [id number] [address] [place] [phone] 13 Jan, 2018 Arthritis M19.90 [place] [address] [facility] [id number] [address] [place] [phone] 07 Jan, 2018 [place] [address] [facility] [id number] [address] [place] [phone] Jan, Abnormal mammogram of right breast R92.8 [place] [address] [id number] [address] [place] [phone] Dec, Daytime somnolence R40.0 and Right otitis media with effusion H65.91 [place] [address] [facility] [id number] [address] [place] [phone] Dec, [place] [address] [address] [id number] [address] [place] [phone] Dec, Cerebrovascular accident (CV A) due to occlusion of right cerebellar artery I63.541 [place] [address] [facility] [id number] [address] [place] [phone] Dec, [place] [address] [facility] [id number] [address] [place] [phone] Dec, [place] [address] [facility] [id number] [address] [place] [phone] Nov, Bipolar 1 disorder, depresse d, partial remission F31.75 and Panic disorder with agoraphobia F40.01 [place] [address] [id number] [address] [place] [phone] Nov, Panlobular emphysema J43.1 [place] [address] [facility] [id number] [address] [place] [phone] Nov, Cerebrovascular accident (CV A) due to occlusion of right cerebellar artery I63.541 and Acute non-recurrent maxillary sinusitis J01.00 [place] [address] [facility] [id number] [address] [place] [phone] Nov, Panlobular emphysema J43.1 [facility] [address] [id number] [address] [place] [phone] Nov, [facility] [address] [id number] [address] [place] [phone] Nov, [facility] [address] [id number] [address] [place] [phone] Nov, [facility] [address] [id number] [address] [place] [phone] Nov, [facility] [address] [id number] [address] [place] [phone] Nov, [facility] [address] [id number] [address] [place] [phone] Nov, [facility] [address] [id number] [address] [place] [phone] Nov, [facility] [address] [id number] [address] [place] [phone] Nov, Mild persistent asthma witho ut complication J45.30 and Irritable bowel syndrome with both constipation and diarrhea K58.2 [facility] [address] [id number] [address] [place] [phone] Nov, [facility] [address] [facility] [id number] [address] [place] [phone] Oct, [facility] [address] [id number] [address] [place] [phone] Oct, [facility] [address] [facility] [id number] [address] [place] [phone] Oct, Type 2 diabetes mellitus wit h diabetic neuropathy, unspecified whether hotel custodian insulin use E11.40 ; Diabetes E11.9 ; Slow transit constipation K59.01 ; Edema of both legs R60.0 and Dysfunction of right eustachian tube H69.81 [facility] [address] [id number] [address] [place] [phone] Oct, Frequent headaches R51 [facility] [address] [id number] [address] [place] [phone] Oct, [facility] [address] [id number] [address] [place] [phone] Oct, [facility] [address] [id number] [address] [place] [phone] Oct, [facility] [address] [id number] [address] [place] [phone] Oct, [facility] [address] [facility] [id number] [address] [place] [phone] Oct, [facility] [address] [facility] [id number] [address] [place] [phone] Oct, [facility] [address] [facility] [id number] [address] [place] [phone] Oct, [facility] [address] [id number] [address] [place] [phone] Oct, [facility] [address] [facility] [id number] [address] [place] [phone] September, Frequent headaches R51 [facility] [address] [facility] [id number] [address] [place] [phone] September, Bilateral otitis media with effusion H65.93 ; Dizziness R42 and Essential tremor G25.0 [facility] [address] [id number] [address] [place] [phone] September, Chronic obstructive pulmonar y disease, unspecified COPD type J44.9 [facility] [address] [facility] [id number] [address] [place] [phone] September, Chronic obstructive pulmonar y disease, unspecified COPD type J44.9 [facility] [address] [facility] [id number] [address] [place] [phone] September, Migraine without aura and wi thout status migrainosus, not intractable G43.009 [facility] [address] [facility] [id number] [address] [place] [phone] September, [facility] [address] [facility] [id number] [address] [place] [phone] September, [facility] [address] [facility] [id number] [address] [place] [phone] September, [facility] [address] [facility] [id number] [address] [place] [phone] September, Frequent headaches R51 [facility] [address] [facility] [id number] [address] [place] [phone] Aug, [facility] [address] [id number] [address] [place] [phone] Aug, Breast mass, right N63.10 [facility] [address] [id number] [address] [place] [phone] Aug, Breast lump N63.0 [facility] [address] [id number] [address] [place] [phone] Aug, [facility] [address] [id number] [address] [place] [phone] Aug, Bipolar affective disorder, remission status unspecified F31.9 and Diabetes E11.9 [place] [address] [id number] [address] [place] [phone] Aug, Diabetes E11.9 ; Schizoaffec tive disorder, bipolar type F25.0 ; Pharyngitis due to other organism J02.8 ; Panlobular emphysema J43.1 and Irritable bowel syndrome with both constipation and diarrhea K58.2 [facility] [address] [id number] [address] [place] [phone] Aug, Abnormal mammogram R92.8 [facility] [address] [id number] [address] [place] [phone] Aug, [place] [address] [facility] [id number] [address] [place] [phone] Aug, Bipolar 1 disorder, depresse d, moderate F31.32 ; Panic disorder with agoraphobia F40.01 and Chronic post-traumatic stress disorder (PTSD) F43.12 [facility] [address] [facility] [id number] [address] [place] [phone] Aug, [facility] [address] [facility] [id number] [address] [place] [phone] Aug, [facility] [address] [facility] [id number] [address] [place] [phone] Aug, [facility] [address] [facility] [id number] [address] [place] [phone] 26 Jul, 2017 [facility] [address] [id number] [address] [place] [phone] Jul, Mild persistent asthma witho ut complication J45.30 [facility] [address] [facility] [id number] [address] [place] [phone] Jul, Mild persistent asthma witho ut complication J45.30 [facility] [address] [facility] [id number] [address] [place] [phone] 15 Jul, 2017 Bipolar affective disorder, remission status unspecified F31.9 ; Diabetes E11.9 and Irritable bowel syndrome with constipation K58.1 [facility] [address] [facility] [id number] [address] [place] [phone] Jul, [facility] [address] [facility] [id number] [address] [place] [phone] Jul, [place] [address] [id number] [address] [place] [phone] 08 Jul, 2017 Frequent headaches R51 [facility] [address] [facility] [id number] [address] [place] [phone] 07 Jul, 2017 [facility] [address] [id number] [address] [place] [phone] Jul, [facility] [address] [id number] [address] [place] [phone] Jul, [facility] [address] [phone] Jul, Frequent headaches R51 ; Fib rocystic disease of left breast N60.12 ; Fibrocystic disease of right breast N60.11 and Diabetes E11.9 [place] [address] [address] Jul, [facility] [address] [phone] Jul, [place] [address] [address] Jun, Exudative tonsillitis J03.90 [place] [address] [address] Jun, [facility] [address] [address] Jun, [place] [address] [address] 15 Jun, 2017 Mild persistent asthma witho ut complication J45.30 ; Chronic obstructive pulmonary disease, unspecified COPD type J44.9 and Exudative tonsillitis J03.90 [place] [address] [address] 13 Jun, 2017 Encounter for immunization Z 23 [facility] [address] [address] Jun, [place] [address] [address] Jun, [place] [address] [address] 09 Jun, 2017 [facility] [address] [address] 06 Jun, 2017 Tonsillitis J03.90 [place] [address] [address] 05 Jun, 2017 [place] [address] [address] 03 Jun, 2017 Acute non-recurrent maxillar y sinusitis J01.00 [place] [address] [address] 02 Jun, 2017 [place] [address] [address] May, [place] [address] [address] May, [place] [address] [address] May, GERD (gastroesophageal reflu x disease) K21.9 [place] [address] [address] May, Migraine without aura and wi thout status migrainosus, not intractable G43.009 [place] [address] [address] May, [place] [address] [address] May, [place] [address] [address] May, Panlobular emphysema J43.1 a nd Acute non-recurrent maxillary sinusitis J01.00 [place] [address] [address] 04 May, 2017 Bipolar 1 disorder, depresse d, moderate F31.32 ; Panic disorder with agoraphobia F40.01 and Akathisia G25.71 [place] [address] [address] Apr, [facility] [address] [facility] [id number] [address] [place] [phone] Apr, [facility] [address] [facility] [id number] [address] [place] [phone] Apr, Acute non-recurrent maxillar y sinusitis J01.00 [facility] [address] [facility] [id number] [address] [place] [phone] 07 Apr, 2017 Panlobular emphysema J43.1 [facility] [address] [id number] [address] [place] [phone] Apr, [facility] [address] [facility] [id number] [address] [place] [phone] 04 Apr, 2017 Exudative tonsillitis J03.90 and Sore throat J02.9 [facility] [address] [facility] [id number] [address] [place] [phone] 17 Mar, 2017 [facility] [address] [facility] [id number] [address] [place] [phone] 15 Mar, 2017 Acute non-recurrent maxillar y sinusitis J01.00 [facility] [address] [facility] [id number] [address] [place] [phone] 13 Mar, 2017 [facility] [address] [facility] [id number] [address] [place] [phone] 09 Mar, 2017 Panlobular emphysema J43.1 a nd Diabetes E11.9 [facility] [address] [facility] [id number] [address] [place] [phone] 06 Mar, 2017 [facility] [address] [facility] [id number] [address] [place] [phone] Feb, Wheezing R06.2 and Acute rec urrent pansinusitis J01.41 [facility] [address] [facility] [id number] [address] [place] [phone] Feb, [facility] [address] [facility] [id number] [address] [place] [phone] 16 Feb, 2017 Acute non-recurrent maxillar y sinusitis J01.00 [facility] [address] [id number] [address] [place] [phone] 16 Feb, 2017 Chronic obstructive pulmonar y disease, unspecified J44.9 [facility] [address] [facility] [id number] [address] [place] [address] 02 Feb, 2017 Hypoxemia R09.02 and Chronic obstructive pulmonary disease, unspecified J44.9 [facility] [address] [id number] [address] [place] [phone] 28 Jan, 2017 Bipolar 1 disorder, depresse d, moderate F31.32 ; Panic disorder with agoraphobia F40.01 ; Chronic post-traumatic stress disorder (PTSD) F43.12 ; Diabetes E11.9 and Moderate persistent asthma without complication J45.40 [place] [id number] [facility] [id number] [address] [place] [phone] 22 Jan, 2017 [facility] [address] [id number] [address] [place] [phone] 19 Jan, 2017 Acute non-recurrent maxillar y sinusitis J01.00 [facility] [address] [id number] [address] [place] [id number] 18 Jan, 2017 [place] [address] [facility] [id number] [address] [place] [phone] 18 Jan, 2017 [facility] [address] [id number] [address] [place] [phone] 12 Jan, 2017 [facility] J[facility].40 and Hypoxemia R09.02 [facility] [address] [id number] [address] [place] [phone] 11 Jan, 2017 Moderate [facility] J45.40 and Hypoxemia R09.02 [facility] [address] [id number] [address] [place] [phone] 11 Jan, 2017 [facility] [address] [facility] [id number] [address] [place] [phone] Dec, Acute non-recurrent maxillar y sinusitis J01.00 [facility] [address] [id number] [address] [place] [phone] Dec, Chronic obstructive pulmonar y disease, unspecified J44.9 [facility] [address] [id number] [address] [place] [phone] Dec, [facility] [address] [id number] [address] [place] [phone] Dec, Mild persistent asthma witho ut complication J45.30 and Other chronic pain G89.29 [facility] [address] [id number] [address] [place] [phone] Nov, [facility] [address] [id number] [address] [place] [id number] Nov, Acute non-recurrent maxillar y sinusitis J01.00 [facility] [address] [id number] [address] [place] [phone] Nov, [facility] [address] [id number] [address] [place] [phone] Nov, [facility] [address] [id number] [address] [place] [phone] Oct, [facility] [address] [id number] [address] [place] [id number] Oct, Bipolar 1 disorder, depresse d, partial remission F31.75 ; Panic disorder with agoraphobia F40.01 and Chronic post-traumatic stress disorder (PTSD) F43.12 [facility] [address] [id number] [address] [place] [id number] Oct, Acute non-recurrent maxillar y sinusitis J01.00 [facility] [address] [id number] [address] [place] [id number] Oct, [facility] [address] [id number] [address] [place] [id number] Oct, Diabetes E11.9 [facility] [address] [facility] [id number] [address] [place] [id number] September, Diabetes E11.9 [facility] [address] [facility] [id number] [address] [place] [id number] September, Diabetes E11.9 and Sinus tac hycardia R00.0 [facility] [address] [facility] [id number] [address] [place] [id number] September, [facility] [address] [facility] [id number] [address] [place] [id number] September, [facility] [address] [facility] [id number] [address] [place] [id number] Aug, Diabetes E11.9 and Lumbago w ith sciatica, right side M54.41 [place] [address] [place] [id number] [address] [place] [id number] Aug, [facility] [address] [place] [id number] [address] [place] [id number] Jul, Bipolar 1 disorder, depresse d, moderate F31.32 ; Panic disorder with agoraphobia F40.01 and Chronic post-traumatic stress disorder (PTSD) F43.12 [facility] [address] [place] [id number] [address] [place] [id number] Jul, Sore throat J02.9 [facility] [address] [facility] [id number] [address] [place] [id number] Jul, [facility] [address] [facility] [id number] [address] [place] [id number] Jul, [facility] [address] [facility] [id number] [address] [place] [id number] Jul, [facility] [address] [facility] [id number] [address] [place] [id number] Jul, [facility] [address] [facility] [id number] [address] [place] [id number] Jul, Sore throat J02.9 and Pharyn gitis, unspecified etiology J02.9 [facility] [address] [address] [id number] [address] [place] [phone] Jun, [facility] [address] [id number] [address] [place] [phone] Jun, Diabetes E11.9 [facility] [address] [id number] [address] [place] [phone] Jun, [facility] [address] [id number] [address] [place] [phone] Jun, [facility] [address] [facility] [id number] [address] [place] [phone] Jun, [facility] [address] [facility] [id number] [address] [place] [phone] Jun, [facility] [address] [facility] [id number] [address] [place] [phone] Jun, [facility] [address] [facility] [id number] [address] [place] [phone] Jun, [facility] [address] [facility] [id number] [address] [place] [phone] Jun, [facility] [address] [facility] [id number] [address] [place] [phone] Jun, [facility] [address] [facility] [id number] [address] [place] [phone] May, Diabetes E11.9 ; Other chron ic pain G89.29 ; Acute recurrent maxillary sinusitis J01.01 ; Bipolar I disorder with depression F31.9 and Anxiety disorder, unspecified F41.9 [facility] [address] [facility] [id number] [address] [place] [phone] May, [facility] [address] [facility] [id number] [address] [place] [phone] May, Diabetes E11.9 ; Bipolar I d isorder with depression F31.9 ; Anxiety disorder, unspecified F41.9 ; Other chronic pain G89.29 and Acute recurrent maxillary sinusitis J01.01 [place] [id number] [id number] [address] [place] [phone] May, [place] [address] [id number] [address] [place] [phone] May, Attention deficit hyperactiv ity disorder (ADHD), predominantly inattentive type F90.0 [place] [address] [id number] [address] [place] [phone] May, [place] [address] [facility] [id number] [address] [place] [phone] Apr, Attention deficit hyperactiv ity disorder (ADHD), predominantly inattentive type F90.0 and Non-seasonal allergic rhinitis due to other allergic trigger J30.89 [place] [address] [facility] [id number] [address] [place] [phone] Apr, Bipolar 1 disorder, depresse d, moderate F31.32 ; Panic disorder with agoraphobia F40.01 and Chronic post-traumatic stress disorder (PTSD) F43.12 [place] [address] [facility] [id number] [address] [place] [phone] 06 Apr, 2016 Dental examination Z01.20 [place] [address] [facility] [id number] [address] [place] [phone] Mar, [place] [address] [id number] [address] [place] [phone] Mar, [place] [address] [facility] [id number] [address] [place] [phone] Mar, Bipolar I disorder with depr ession F31.9 and Anxiety disorder, unspecified F41.9 [place] [address] [facility] [id number] [address] [place] [phone] Mar, Panic disorder with agorapho syd F40.01 ; Bipolar 1 disorder, depressed, moderate F31.32 and Chronic post-traumatic stress disorder (PTSD) F43.12 [place] [address] [place] [id number] [address] [place] [phone] Mar, [place] [address] [facility] [id number] [address] [place] [phone] Mar, Dental caries K02.9 [place] [address] [place] [id number] [address] [place] [phone] Feb, Lumbago with sciatica, left side M54.42 ; Lumbago with sciatica, right side M54.41 and Other chronic pain G89.29 [place] [address] [place] [id number] [address] [place] [phone] 17 Feb, 2016 [place] [address] [place] [id number] [place] [phone] Feb, [place] [address] [phone] Feb, Bipolar I disorder with depr ession F31.9 ; PTSD (post-traumatic stress disorder) F43.10 and Mood disorder F39 [place] [address] [place] [id number] [address] [place] [phone] Feb, [place] [address] [place] [id number] [address] [place] [phone] Feb, Dental examination Z01.20 [place] [address] [place] [id number] [address] [place] [phone] 07 Feb, 2016 [facility] [address] [facility] [id number] [address] [place] [phone] 03 Feb, 2016 Acute bronchitis, unspecifie d organism J20.9 [facility] [address] [facility] [id number] [address] [place] [phone] 26 Jan, 2016 Mood disorder F39 ; Migraine without aura and without status migrainosus, not intractable G43.009 ; Irritable bowel syndrome, unspecified type K58.9 ; Diabetes E11.9 and Encounter for immunization Z23 [facility] [address] [facility] [id number] [address] [place] [phone] Jan, [facility] [address] [facility] [id number] [address] [place] [phone] Jan, [facility] [address] [place] [id number] [address] [place] [phone] Jan, [facility] [address] [place] [id number] [address] [place] [phone] Jan, [facility] [address] [facility] [id number] [address] [place] [phone] Jan, [facility] [address] [place] [id number] [address] [place] [phone] Dec, Bipolar I disorder with depr ession F31.9 ; PTSD (post-traumatic stress disorder) F43.10 and Panic disorder with agoraphobia F40.01 [facility] [address] [place] [id number] [address] [place] [phone] Dec, Chronic obstructive pulmonar y disease, unspecified COPD type J44.9 ; Tremor R25.1 and Anxiety F41.9 [facility] [address] [place] [id number] [address] [place] [phone] Dec, [place] [address] [place] [id number] [address] [place] [phone] Nov, Tremors of nervous system R2 5.1 and Cramping of feet R25.2 [facility] [address] [facility] [id number] [address] [place] [phone] Nov, [facility] [address] [facility] [id number] [address] [place] [phone] Nov, [facility] [address] [place] [id number] [address] [place] [phone] Oct, Chronic obstructive pulmonar y disease, unspecified J44.9 [place] [address] [id number] [address] [place] [phone] Oct, [facility] [address] [facility] [id number] [address] [place] [phone] Oct, Tremor R25.1 [facility] [address] [facility] [id number] [address] [place] [phone] Oct, Bipolar I disorder with depr ession F31.9 ; Diabetes E11.9 ; PTSD (post-traumatic stress disorder) F43.10 and Panic disorder with agoraphobia F40.01 [facility] [address] [facility] [id number] [address] [place] [phone] Oct, Mood disorder F39 [place] [address] [facility] [id number] [address] [place] [phone] September, [place] [address] [facility] [id number] [address] [place] [phone] September, Diabetes E11.9 ; Bipolar I d isorder with depression F31.9 ; PTSD (post-traumatic stress disorder) F43.10 and Panic disorder with agoraphobia F40.01 [facility] [address] [facility] [id number] [address] [place] [phone] September, Mood disorder F39 ; Schizoaf fective disorder, unspecified type F25.9 ; Arthritis M19.90 ; Tremor R25.1 ; Acute non-recurrent frontal sinusitis J01.10 and Blood in stool K92.1 [facility] [address] [facility] [id number] [address] [place] [phone] September, [facility] [address] [facility] [id number] [address] [place] [phone] September, Chronic obstructive pulmonar y disease, unspecified J44.9 [facility] [address] [facility] [id number] [address] [place] [phone] September, Diabetes E11.9 [facility] [address] [facility] [id number] [address] [place] [phone] Aug, Other bipolar disorder F31.8 9 and Anxiety disorder, unspecified F41.9 [facility] [address] [id number] [address] [place] [phone] Aug, [facility] [address] [id number] [address] [place] [phone] Aug, Diabetes E11.9 [facility] [address] [id number] [address] [place] [phone] 18 Aug, 2015 [facility] [address] [id number] [address] [place] [phone] 14 Aug, 2015 Diabetes E11.9 ; Fatigue R53 .83 and Dizziness R42 [facility] [address] [id number] [address] [place] [id number] 13 Aug, 2015 Other bipolar disorder F31.8 9 [facility] [address] [facility] [id number] [address] [place] [phone] 07 Aug, 2015 Generalized anxiety disorder F41.1 [facility] [address] [id number] [address] [place] [phone] 07 Aug, 2015 Other bipolar disorder F31.8 9 and Anxiety disorder, unspecified F41.9 [facility] [address] [id number] [address] [place] [phone] Aug, [facility] [address] [id number] [address] [place] [phone] Jul, [facility] [address] [id number] [address] [place] [phone] Jul, [facility] [address] [id number] [address] [place] [phone] Jul, Bronchitis J40 [facility] [address] [id number] [address] [place] [phone] Jul, Anxiety disorder F41.9 [facility] [address] [facility] [id number] [address] [place] [phone] Jul, Other bipolar disorder F31.8 9 and Anxiety disorder, unspecified F41.9 [facility] [address] [id number] [address] [place] [phone] 18 Jul, 2015 Other bipolar disorder F31.8 9 and Fibromyalgia M79.7 [facility] [address] [facility] [id number] [address] [place] [phone] Jul, [facility] [address] [facility] [id number] [address] [place] [phone] Jul, [facility] [address] [facility] [id number] [address] [place] [phone] Jul, [facility] [address] [facility] [id number] [address] [place] [phone] Jul, Other bipolar disorder F31.8 9 and Anxiety disorder, unspecified F41.9 [facility] [address] [facility] [id number] [address] [place] [phone] Jun, GERD (gastroesophageal reflu x disease) K21.9 [facility] [address] [facility] [id number] [address] [place] [phone] Jun, [facility] [address] [facility] [id number] [address] [place] [phone] May, [facility] [address] [facility] [id number] [address] [place] [phone] May, Diabetes E11.9 ; Back pain M 54.9 ; GERD (gastroesophageal reflux disease) K21.9 ; Hypertension I10 and Peripheral neuropathy G62.9 [facility] [address] [facility] [id number] [address] [place] [phone] Mar, [facility] [address] [facility] [id number] [address] [place] [phone] Mar, [facility] [address] [facility] [id number] [address] [place] [phone] Mar, Acute sinusitis J01.90 and O titis media, left H66.92 [facility] [address] [facility] [id number] [address] [place] [phone] Feb, [facility] [address] [facility] [id number] [address] [place] [phone] Feb, [facility] [address] [facility] [id number] [address] [place] [phone] Feb, [facility] [address] [facility] [id number] [address] [place] [phone] Feb, [facility] [address] [facility] [id number] [address] [place] [phone] Jan, [facility] [address] [facility] [id number] [address] [place] [phone] Jan, Diabetes 250.00 and Back higinio n 724.5 [facility] [address] [facility] [id number] [address] [place] [phone] Jan, [facility] [address] [place] [id number] [address] [place] [phone] Dec, Diabetes 250.00 ; Benign ess ential hypertension 401.1 and Allergic rhinitis 477.9 [facility] [address] [facility] [id number] [address] [place] [phone] Dec, [facility] [address] [facility] [id number] [address] [place] [phone] Dec, [facility] [address] [facility] [id number] [address] [place] [phone] Dec, Psychosis 298.9 [facility] [address] [facility] [id number] [address] [place] [phone] Dec, Medication side effect 995.2 0 and Generalized anxiety disorder 300.02 [facility] [address] [facility] [id number] [address] [place] [phone] Dec, Acquired cognitive dysfuncti on 294.9 [facility] [address] [facility] [id number] [address] [place] [phone] Dec, [facility] [address] [id number] [address] [place] [phone] Dec, Unspecified myalgia and myos itis 729.1 and Generalized anxiety disorder 300.02 [facility] [address] [id number] [address] [place] [phone] Nov, [facility] [address] [id number] [address] [place] [phone] Nov, [facility] [address] [id number] [address] [place] [phone] Nov, [facility] [address] [id number] [address] [place] [phone] Nov, Upper respiratory infection 465.9 and Chronic airway obstruction, not elsewhere classified 496 [facility] [address] [id number] [address] [place] [phone] Nov, Hyponatremia 276.1 [facility] [address] [id number] [address] [place] [phone] Oct, [facility] [address] [id number] [address] [place] [phone] Oct, [facility] [address] [id number] [address] [place] [phone] Oct, [facility] [address] [id number] [address] [place] [phone] Oct, [facility] [address] [id number] [address] [place] [phone] Oct, Hyponatremia 276.1 [facility] [address] [id number] [address] [place] [phone] Oct, [facility] [address] [id number] [address] [place] [phone] Oct, [facility] [address] [facility] [id number] [address] [place] [phone] Oct, Generalized anxiety disorder 300.02 [facility] [address] [id number] [address] [place] [phone] Oct, Generalized anxiety disorder 300.02 and Diabetes 250.00 [facility] [address] [id number] [address] [place] [address], [place] [phone] 14 Aug, 2014 [facility] [address] [id number] [address] [place] [phone] Aug, [facility] [address] [id number] [address] [place] [address], [place] [phone] Jul, [facility] [address] [id number] [address] [place] [phone] Jul, [facility] [address] [id number] [address] [place] [phone] Jun, [facility] [address] [id number] [address] [place] [phone] Jun, [facility] [address] [id number] [address] [place] [address], [place] [id number] Jun, [facility] [address] [id number] [address] [place] [address], [place] [phone] Jun, [facility] [address] [id number] [address] [place] [phone] Jun, [facility] [address] [id number] [address] [place] [phone] May, [facility] [address] [id number] [address] [place] [phone] May, [facility] [address] [id number] [address] [place] [phone] Apr, [facility] [address] [id number] [address] [place] [phone] Apr, [facility] [address] [id number] [address] [place] [phone] Apr, [facility] [address] [id number] [address] [place] [address], [place] [id number] Apr, [facility] [address] [id number] [address] [place] [address], [place] [id number] Apr, [facility] [address] [id number] [address] [place] [address], [place] [address] Apr, [facility] [address] [id number] [address] [place] [address], [place] [address] Apr, [facility] [address] [id number] [address] [place] [address], [place] [address] Apr, [facility] [address] [id number] [address] [place] [address], [place] [address] Feb, [facility] [address] [id number] [address] [place] [address], [place] [phone] Feb, [facility] [address] [id number] [address] [place] [address], [place] [address] Jan, [facility] [address] [id number] [address] [place] [address], [place] [address] Jan, [facility] [address] [id number] [address] [place] [address], [place] [address] Dec, [facility] [address] [id number] [address] [place] [address], [place] [address] Dec, [facility] [address] [id number] [address] [place] [id number] Dec, [facility] [address] [id number] [address] [place] [address], [place] [address] Nov, [facility] [address] [id number] [address] [place] [address], [place] [address] Nov, [facility] [address] [id number] [address] [place] [address], [place] [address] Nov, [facility] [address] [id number] [address] [place] [address], [place] [address] Oct, [facility] [address] [id number] [address] [place] [address], [place] [address] Oct, [facility] [address] [id number] [address] [place] [address], [place] [address] Oct, [facility] [address] [id number] [address] [place] [address], [place] [address] September, [facility] [address] [id number] [address] [place] [address], [place] [address] September, [facility] [address] [id number] [address] [place] [address], [place] [address] September, [facility] [address] [id number] [address] [place] [address], [place] [address] Aug, [facility] [address] [id number] [address] [place] [address], [place] [address] Aug, [facility] [address] [id number] [address] [place] [address], [place] [address] Aug, [facility] [address] [id number] [address] [place] [address], [place] [address] 16 Aug, 2011 [facility] [address] [id number] [address] [place] [address], [place] [address] Jul, [facility] [address] [id number] [address] [place] [address], [place] [address] Jun, [facility] [address] [id number] [address] [place] [address], [place] [address] 14 Jun, 2011 [facility] [address] [id number] [address] [place] [address], [place] [address] 13 Jun, 2011 [facility] [address] [id number] [address] [place] [address], [place] [address] 07 Jun, 2011 [facility] [address] [id number] [address] [place] [address], [place] [address] Jun, [facility] [address] [id number] [address] [place] [address], [place] [address] May, [facility] [address] [id number] [address] [place] [address], [place] [address] May, [facility] [address] [id number] [address] [place] [address], [place] [address] May, [facility] [address] [id number] [address] [place] [address], [place] [address] May, [facility] [address] [id number] [address] [place] [address], [place] [address] Apr, [facility] [address] [id number] [address] [place] [address], [place] [address] Apr, [facility] [address] [id number] [address] [place] [address], [place] [address] Apr, [facility] [address] [id number] [address] [place] [address], [place] [address] Mar, [facility] [address] [id number] [address] [place] [address], [place] [address] Mar, [facility] [address] [id number] [address] [place] [address], [place] [address] Mar, [facility] [address] [id number] [address] [place] [address], [place] [address] Feb, [facility] [address] [id number] [address] [place] [address], [place] [address] Feb, [facility] [address] [id number] [address] [place] [address], [place] [address] Feb, [facility] [facility] [address] [id number] [address] [place] [address], [place] [phone] Nov, [facility] [address] [id number] [address] [place] [address], [place] [id number] September, [facility] [address] [id number] [address] [place] [phone] Aug, [facility] [address] [id number] [address] [place] [phone] Jul, [facility] [address] [id number] [address] [place] [phone] May, [facility] [address] [id number] [address] [place] [phone] Apr, [facility] [address] [id number] [address] [place] [id number] Apr, [facility] [address] [id number] [address] [place] [phone] Apr, [facility] [address] [id number] [address] [place] [phone] Apr, [facility] [address] [facility] [id number] [address] [place] [phone] Apr, IMMUNIZATIONS No Known Immunizations SOCIAL HISTORY Never Assessed REASON FOR VISIT Pain management (chronic)- AB/MA, 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 VITAL SIGNS Height 66 in 2018-01-06 Weight 103 lbs 2018-01-06 Temperature 99.2 degrees Fahrenheit 2018-01-06 Heart Rate 93 bpm 2018-01-06 Respiratory Rate 20 2018-01-06 BMI 16.62 kg/m2 2018-01-06 Blood pressure systolic 122 mmHg 2018-01-06 Blood pressure diastolic 62 mmHg 2018-01-06 MEDICATIONS Medication Instructions Dosage Frequency Start Date End Date Duration S tatus Glucosamine 1000 MG Orally Once a day 2 capsules 24h Active Insulin Pen Needle 32G X 6 MM as directed 24h Oct, Active Aspir-81 81 MG Orally Once a day 1 tablet 24h Active Atorvastatin Calcium 10 mg Orally Once a day 1 tablet 24h Active Clonidine HCl 0.1 MG 1 tablet 8h Ac tive Topiramate 50 mg Orally Twice a day 1 tablet 12h Nov, 30 day(s) Active Multivitamin Adult - Act minoo Lisinopril 40 mg Orally Once a day 1 tablet 24h Active Adderall XR 30 MG Orally Once a day for depression 1 capsule in the morning Dec, 28 days Active Ventolin HFA 108 (90 Base) MCG/ACT Inhalation every 4 hrs 2 puffs a s needed 4h Dec, Active Ugallsvfxp-VCPO-Inczpwtb 50-325-40 MG Orally 3 times a day 1 cap yg as needed 8h Jun, Not-Taking Pulmicort Flexhaler 90 mcg/act Inhalation Twice a day 1 puff 12h Nov, Active [place] 7.5-325 MG Orally 3 times a day 1 tablet as needed 8h Dec, 28 days Active Gaviscon 80-14.2 MG Orally 4 times a day 4 tablet 6h Active Lamictal 100 mg Orally 2 times a day for depression 1 tablet September, Active Diclofenac Sodium 1 % Transdermal Four times a day 2-4- grams to affected areas 6h Jun, 30 days Active Lorazepam 2 MG Orally in the AM and noon and 4pm 1 tablet r, 2015 Active Nebulizer 1 as directed Jul, Act minoo Metoprolol Tartrate 50 mg Orally Twice a day TAKE ONE TABLE T BY MOUTH TWICE DAILY WITH FOOD 12h Active Amitiza 8 MCG Orally Twice a day 1 capsule with food 12h Nov, 30 day(s) Active Anoro Ellipta 62.5-25 MCG/INH Inhalation Once a day 1 puff 24h Oct, Jun, 30 days Active Flonase 50 mcg/act 1 spray in each nostril 12h Apr, Active Gabapentin 800 MG Orally Three times a day 1 tablet 8h Jul, Active Sudafed 30 MG Orally every 6 hrs 1 tablet as needed 6h September, Active Loxapine Succinate 10 mg Orally twice a day for mood 1 capsule Active Ondansetron 4 MG Orally every 8 hrs PRN 1 tablet on the t ongue and allow to dissolve Apr, 30 days Active Levocetirizine Dihydrochloride 5 MG Orally Once a day 1 tablet i n the evening 24h Dec, Mar, 30 day(s) Active Dicyclomine HCl 20 mg Orally Four times a day 1 tablet 6h 18 2017 30 day(s) Active Baclofen 20 MG Orally Three times a day 1 tablet with food or milk 8h 30 Active Amlodipine Besylate 5 mg Orally Once a day 1 tablet 24h Active Calcium 600 + D 600-200 MG-UNIT Active Xopenex 1.25 MG/3ML Inhalation 4 times a day prn 3 ml Dec, 30 days Active Levemir FlexTouch 100 UNIT/ML Subcutaneous Once a day 7 units 24h September, 30 days Active Metformin HCl 1000 MG Orally Twice a day 1 tablet with meals 12h Aug, 30 day(s) Active Benztropine Mesylate 0.5 MG Orally 3 times a day-Q AM, 4pm and bedtime for restlessness 1 tablet Mar, Active Singulair 10 mg Orally Once a day 1 tablet in the evening 24h Oct, 30 day(s) Active Nexium 40 mg 1 capsule 24h Active Detrol LA 4 MG Orally Once a day 1 capsule 24h Dec, 28 N 2017 30 day(s) Active Cetirizine HCl 10 mg Orally Once a day 1 tablet 24h Apr, 30 day(s) Active MiraLax - Orally 3 times a day until you have a BM then Reduce to once daily. 17 grams mixed with 8 oz of fluid 30 days Active BusPIRone HCl 15 mg Orally 3 times a day for anxiety 1 tablet Jan, Active Trazodone HCl 100 mg Orally for sleep 1 tablet at bedtime Jan Active Guaifenesin 400 mg Orally every 4 hrs 1 tablet 4h Active RESULTS No Results PROCEDURES Procedure Date Ordered Result Body Site [facility] VISIT ESTABLISHED PATIENT Jan 06, 2018 INSTRUCTIONS MEDICATIONS ADMINISTERED No Known Medications [...]
--- OUTSIDE RECORDS SUMMARY | 2019-07-17 11:25 | XMS REPORT ---
Author Author Sujey GANDHI Organization [facility] Address [address] [place] [address] Care Team Providers Care Industrial Training Specialist Name Role Phone WHIT GANDHI Unavailable PROBLEMS Type Condition ICD9-CM Code PIO58-UV Code Onset Dates Condition S tatus SNOMED Code Problem Diabetes E11.9 Active 16511920 Problem GERD (gastroesophageal reflux disease) K21.9 Active 044546191 Problem Anxiety disorder, unspecified F41.9 Active 292470688 Problem Hypertension I10 Active 2007162 3 Problem Other bipolar disorder F31.89 Active 49492542 Problem Fibromyalgia M79.7 Active 2943981 7 Problem Panic disorder with agoraphobia F40.01 Active 51989615 Problem Chronic obstructive pulmonary disease, unspecified J44.9 Active 49951757 Problem Lumbago with sciatica, left side M54.42 Active 586377696 Problem Migraine without aura and without status migrain osus, not intractable G43.009 Active 373112583 Problem Lumbago with sciatica, right side M54.41 Active 666276691 Problem Fibrocystic disease of right breast N60.11 Active 65566283 Problem Other chronic pain G89.29 Active 8 3328149 Problem Fibrocystic disease of left breast N60.12 Active 72117749 Problem Irritable bowel syndrome with constipation K58.1 Active 392671214 Problem Arthritis M19.90 Active 8552500 Problem Abnormal mammogram of right breast R92.8 Active 894755225 Problem Daytime somnolence R40.0 Active 1 78074576072 Problem Bipolar affective disorder, remission status unspecified F31.9 Active 96861280 Problem Chronic post-traumatic stress disorder (PTSD) F43. 12 Active 771407484 Problem Bipolar 1 disorder, depressed, moderate F31.32 Active 05094017 Problem Schizoaffective disorder, bipolar type F25.0 Active 95458126 Problem Irritable bowel syndrome with both constipation and diarrh ea K58.2 Active 25774871 Problem Slow transit constipation K59.01 Acti ve 02146437 Problem Essential tremor G25.0 Active 609 523718 Problem Acute non-recurrent maxillary sinusitis J01.00 Active 05578092 Problem Back pain M54.9 Active 081399711 Problem Bipolar 1 disorder, depressed, partial remission F 31.75 Active 66922276 Problem Attention deficit hyperactiv ity disorder (ADHD), predominantly inattentive type F90.0 Active 58653743 Problem Bipolar I disorder with depression F31.9 Active 87602095 Problem Panlobular emphysema J43.1 Active 5921692 Problem Akathisia G25.71 Active 918856471 Problem Mild persistent asthma without complication J45.30 Active 538278653 Problem Moderate persistent asthma without complication J4 5.40 Active 930270768 ALLERGIES No Information ENCOUNTERS Encounter Location Date Diagnosis [place] [address] [place] [id number] [place] [phone] Mar, [place] [address] [phone] 27 Jan, 2018 [place] [address] [place] [id number] [place] [id number] 20 Jan, 2018 Cerebrovascular accident (CV A) due to occlusion of right cerebellar artery I63.541 [place] [address] [place] [id number] [place] [phone] 19 Jan, 2018 [place] [address] [place] [id number] [place] [id number] 13 Jan, 2018 Arthritis M19.90 [place] [address] [place] [id number] [place] [id number] 07 Jan, 2018 [place] [address] [place] [id number] [place] [phone] 04 Jan, 2018 Abnormal mammogram of right breast R92.8 [place] [address] [place] [id number] [place] [phone] Dec, Daytime somnolence R40.0 and Right otitis media with effusion H65.91 [place] [address] [place] [id number] [place] [id number] Dec, [facility] [address] [id number] [address] [place] [phone] Dec, Cerebrovascular accident (CV A) due to occlusion of right cerebellar artery I63.541 [facility] [address] [id number] [address] [place] [phone] Dec, [facility] [address] [facility] [id number] [address] [place] [phone] Dec, [facility] [address] [facility] [id number] [address] [place] [phone] Nov, Bipolar 1 disorder, depresse d, partial remission F31.75 and Panic disorder with agoraphobia F40.01 [facility] [address] [facility] [id number] [address] [place] [phone] Nov, Panlobular emphysema J43.1 [facility] [address] [facility] [id number] [address] [place] [id number] Nov, Cerebrovascular accident (CV A) due to occlusion of right cerebellar artery I63.541 and Acute non-recurrent maxillary sinusitis J01.00 [facility] [address] [facility] [id number] [address] [place] [phone] Nov, Panlobular emphysema J43.1 [facility] [address] [facility] [id number] [address] [place] [phone] Nov, [facility] [address] [facility] [id number] [address] [place] [phone] Nov, [facility] [address] [facility] [id number] [address] [place] [phone] Nov, [facility] [address] [facility] [id number] [address] [place] [phone] Nov, [facility] [address] [facility] [id number] [address] [place] [phone] Nov, [facility] [address] [facility] [id number] [address] [place] [phone] Nov, [facility] [address] [facility] [id number] [address] [place] [phone] Nov, [facility] [address] [facility] [id number] [address] [place] [id number] Nov, Mild persistent asthma witho ut complication J45.30 and Irritable bowel syndrome with both constipation and diarrhea K58.2 [facility] [address] [facility] [id number] [address] [place] [phone] Nov, [facility] [address] [facility] [id number] [address] [place] [phone] Oct, [facility] [address] [facility] [id number] [address] [place] [phone] Oct, [facility] [address] [place] [id number] [place] [phone] Oct, Type 2 diabetes mellitus wit h diabetic neuropathy, unspecified whether senior living insulin use E11.40 ; Diabetes E11.9 ; Slow transit constipation K59.01 ; Edema of both legs R60.0 and Dysfunction of right eustachian tube H69.81 [facility] [address] [place] [id number] [place] [phone] Oct, Frequent headaches R51 [facility] [address] [facility] [id number] [address] [place] [phone] Oct, [facility] [address] [place] [id number] [place] [phone] Oct, [facility] [address] [facility] [id number] [address] [place] [phone] Oct, [facility] [address] [place] [id number] [place] [phone] Oct, [facility] [address] [facility] [id number] [address] [place] [phone] Oct, [facility] [address] [place] [id number] [place] [phone] Oct, [facility] [address] [facility] [id number] [address] [place] [phone] Oct, [facility] [address] [facility] [id number] [address] [place] [phone] Oct, [facility] [address] [facility] [id number] [address] [place] [phone] September, Frequent headaches R51 [facility] [address] [facility] [id number] [address] [place] [phone] September, Bilateral otitis media with effusion H65.93 ; Dizziness R42 and Essential tremor G25.0 [facility] [address] [facility] [id number] [address] [place] [phone] September, Chronic obstructive pulmonar y disease, unspecified COPD type J44.9 [facility] [address] [facility] [id number] [address] [place] [phone] September, Chronic obstructive pulmonar y disease, unspecified COPD type J44.9 [facility] [address] [facility] [id number] [address] [place] [phone] September, Migraine without aura and wi thout status migrainosus, not intractable G43.009 [facility] [address] [facility] [id number] [address] [place] [phone] September, [facility] [address] [facility] [id number] [address] [place] [phone] September, [facility] [address] [facility] [id number] [address] [place] [phone] September, [facility] [address] [facility] [id number] [address] [place] [phone] September, Frequent headaches R51 [facility] [address] [facility] [id number] [address] [place] [phone] Aug, [facility] [address] [place] [id number] [place] [phone] Aug, Breast mass, right N63.10 [facility] [address] [place] [id number] [place] [id number] Aug, Breast lump N63.0 [facility] [address] [place] [id number] [place] [id number] Aug, [facility] [address] [place] [id number] [place] [phone] Aug, Bipolar affective disorder, remission status unspecified F31.9 and Diabetes E11.9 [place] [address] [phone] Aug, Diabetes E11.9 ; Schizoaffec tive disorder, bipolar type F25.0 ; Pharyngitis due to other organism J02.8 ; Panlobular emphysema J43.1 and Irritable bowel syndrome with both constipation and diarrhea K58.2 [place] [address] [phone] Aug, Abnormal mammogram R92.8 [place] [address] [place] [id number] [place] [phone] Aug, [place] [address] [place] [id number] [place] [phone] Aug, Bipolar 1 disorder, depresse d, moderate F31.32 ; Panic disorder with agoraphobia F40.01 and Chronic post-traumatic stress disorder (PTSD) F43.12 [place] [address] [place] [id number] [place] [phone] Aug, [place] [address] [id number] Aug, [place] [address] [place] [id number] [place] [phone] Aug, [place] [address] [place] [id number] [place] [phone] 26 Jul, 2017 [facility] [address] [id number] [address] [place] [id number] 20 Jul, 2017 Mild persistent asthma witho ut complication J45.30 [facility] [address] [id number] [address] [place] [id number] 19 Jul, 2017 Mild persistent asthma witho ut complication J45.30 [facility] [address] [id number] [address] [place] [phone] 15 Jul, 2017 Bipolar affective disorder, remission status unspecified F31.9 ; Diabetes E11.9 and Irritable bowel syndrome with constipation K58.1 [facility] [address] [id number] [address] [place] [id number] Jul, [facility] [address] [id number] [address] [place] [phone] Jul, [facility] [address] [id number] [address] [place] [phone] Jul, Frequent headaches R51 [facility] [address] [id number] [address] [place] [id number] Jul, [facility] [address] [id number] [address] [place] [phone] Jul, [facility] [address] [facility] [id number] [address] [place] [phone] Jul, [facility] [address] [id number] [address] [place] [phone] Jul, Frequent headaches R51 ; Fib rocystic disease of left breast N60.12 ; Fibrocystic disease of right breast N60.11 and Diabetes E11.9 [facility] [address] [id number] [address] [place] [phone] Jul, [facility] [address] [id number] [address] [place] [phone] Jul, [facility] [address] [facility] [id number] [address] [place] [id number] 21 Jun, 2017 Exudative tonsillitis J03.90 [facility] [address] [id number] [address] [place] [id number] 20 Jun, 2017 [facility] [address] [facility] [id number] [address] [place] [id number] 19 Jun, 2017 [facility] [address] [facility] [id number] [address] [place] [phone] 15 Jun, 2017 Mild persistent asthma witho ut complication J45.30 ; Chronic obstructive pulmonary disease, unspecified COPD type J44.9 and Exudative tonsillitis J03.90 [facility] [address] [facility] [id number] [address] [place] [phone] 13 Jun, 2017 Encounter for immunization Z 23 [facility] [address] [facility] [id number] [address] [place] [phone] 12 Jun, 2017 [facility] [address] [facility] [id number] [address] [place] [phone] 12 Jun, 2017 [facility] [address] [facility] [id number] [address] [place] [phone] 09 Jun, 2017 [facility] [address] [facility] [id number] [address] [place] [phone] 06 Jun, 2017 Tonsillitis J03.90 [facility] [address] [facility] [id number] [address] [place] [id number] 05 Jun, 2017 [facility] [address] [facility] [id number] [address] [place] [phone] 03 Jun, 2017 Acute non-recurrent maxillar y sinusitis J01.00 [facility] [address] [facility] [id number] [address] [place] [phone] Jun, [facility] [address] [facility] [id number] [address] [place] [phone] May, [facility] [address] [facility] [id number] [address] [place] [id number] May, [facility] [address] [facility] [id number] [address] [place] [id number] May, GERD (gastroesophageal reflu x disease) K21.9 [facility] [address] [facility] [id number] [address] [place] [phone] May, Migraine without aura and wi thout status migrainosus, not intractable G43.009 [facility] [address] [facility] [id number] [address] [place] [phone] May, [facility] [address] [address] May, [place] [address] [address] May, Panlobular emphysema J43.1 a nd Acute non-recurrent maxillary sinusitis J01.00 [place] [address] [id number] May, Bipolar 1 disorder, depresse d, moderate F31.32 ; Panic disorder with agoraphobia F40.01 and Akathisia G25.71 [place] [address] [address] Apr, [place] [address] [id number] Apr, [facility] [address] [address] Apr, Acute non-recurrent maxillar y sinusitis J01.00 [place] [address] [facility] [id number] [address] [place] [phone] Apr, Panlobular emphysema J43.1 [facility] [address] [place] [id number] [place] [phone] Apr, [facility] [address] [facility] [id number] [address] [place] [phone] Apr, Exudative tonsillitis J03.90 and Sore throat J02.9 [facility] [address] [facility] [id number] [address] [place] [phone] Mar, [facility] [address] [facility] [id number] [address] [place] [phone] 15 Mar, 2017 Acute non-recurrent maxillar y sinusitis J01.00 [facility] [address] [place] [id number] [place] [phone] Mar, [facility] [address] [place] [phone] Mar, Panlobular emphysema J43.1 a nd Diabetes E11.9 [place] [address] [place] [id number] [place] [id number] 06 Mar, 2017 [facility] [address] [place] [id number] [place] [id number] Feb, Wheezing R06.2 and Acute rec urrent pansinusitis J01.41 [place] [address] [place] [id number] [place] [id number] Feb, [place] [address] [place] [id number] [place] [phone] Feb, Acute non-recurrent maxillar y sinusitis J01.00 [place] [address] [place] [id number] [place] [phone] Feb, Chronic obstructive pulmonar y disease, unspecified J44.9 [facility] [id number] [place] [id number] Feb, Hypoxemia R09.02 and Chronic obstructive pulmonary disease, unspecified J44.9 [facility] [address] [place] [id number] [place] [id number] Jan, Bipolar 1 disorder, depresse d, moderate F31.32 ; Panic disorder with agoraphobia F40.01 ; Chronic post-traumatic stress disorder (PTSD) F43.12 ; Diabetes E11.9 and Moderate persistent asthma without complication J45.40 [facility] [address] [id number] [address] [place] [id number] 22 Jan, 2017 [facility] [address] [id number] [address] [place] [id number] Jan, Acute non-recurrent maxillar y sinusitis J01.00 [facility] [address] [id number] [address] [place] [id number] 18 Jan, 2017 [facility] [address] [id number] [address] [place] [id number] Jan, [facility] [address] [id number] [address] [place] [id number] Jan, Moderate persistent asthma w ithout complication J45.40 and Hypoxemia R09.02 [facility] [address] [facility] [id number] [address] [place] [id number] Jan, Moderate persistent asthma w ithout complication J45.40 and Hypoxemia R09.02 [facility] [address] [id number] [address] [place] [id number] Jan, [facility] [address] [id number] [address] [place] [id number] Dec, Acute non-recurrent maxillar y sinusitis J01.00 [facility] [address] [facility] [id number] [address] [place] [id number] Dec, Chronic obstructive pulmonar y disease, unspecified J44.9 [facility] [address] [id number] [address] [place] [phone] Dec, [facility] [address] [id number] [address] [place] [id number] Dec, Mild persistent asthma witho ut complication J45.30 and Other chronic pain G89.29 [facility] [address] [facility] [id number] [address] [place] [id number] Nov, [facility] [address] [id number] [address] [place] [id number] Nov, Acute non-recurrent maxillar y sinusitis J01.00 [facility] [address] [id number] [address] [place] [id number] Nov, [facility] [address] [id number] [address] [place] [phone] Nov, [facility] [address] [id number] [address] [place] [phone] Oct, [facility] [address] [id number] [address] [place] [phone] Oct, Bipolar 1 disorder, depresse d, partial remission F31.75 ; Panic disorder with agoraphobia F40.01 and Chronic post-traumatic stress disorder (PTSD) F43.12 [facility] [address] [id number] [address] [place] [phone] Oct, Acute non-recurrent maxillar y sinusitis J01.00 [facility] [address] [id number] [address] [place] [phone] Oct, [facility] [address] [id number] [address] [place] [id number] Oct, Diabetes E11.9 [facility] [address] [id number] [address] [place] [id number] September, Diabetes E11.9 [facility] [address] [id number] [address] [place] [phone] September, Diabetes E11.9 and Sinus tac hycardia R00.0 [facility] [address] [id number] [address] [place] [id number] September, [facility] [address] [id number] [address] [place] [phone] September, [facility] [address] [id number] [address] [place] [id number] Aug, Diabetes E11.9 and Lumbago w ith sciatica, right side M54.41 [facility] [address] [id number] [address] [place] [id number] Aug, [facility] [address] [facility] [id number] [address] [place] [id number] Jul, Bipolar 1 disorder, depresse d, moderate F31.32 ; Panic disorder with agoraphobia F40.01 and Chronic post-traumatic stress disorder (PTSD) F43.12 [facility] [address] [id number] [address] [place] [id number] Jul, Sore throat J02.9 [facility] [address] [id number] [address] [place] [phone] Jul, [facility] [address] [facility] [id number] [address] [place] [phone] Jul, [facility] [address] [facility] [id number] [address] [place] [id number] Jul, [facility] [address] [facility] [place] [id number] [address] [place] [phone] Jul, [facility] [address] [facility] [place] [id number] [address] [place] [phone] Jul, Sore throat J02.9 and Pharyn gitis, unspecified etiology J02.9 [facility] [address] [facility] [place] [id number] [address] [place] [phone] Jun, [facility] [address] [facility] [place] [id number] [address] [place] [phone] Jun, Diabetes E11.9 [facility] [address] [facility] [place] [id number] [address] [place] [phone] Jun, [facility] [address] [facility] [place] [id number] [address] [place] [phone] Jun, [facility] [address] [facility] [place] [id number] [address] [place] [phone] Jun, [facility] [address] [id number] [address] [place] [phone] Jun, [facility] [address] [id number] [address] [place] [phone] Jun, [facility] [address] [id number] [address] [place] [phone] Jun, [facility] [address] [id number] [address] [place] [phone] Jun, [facility] [address] [id number] [address] [place] [phone] Jun, [facility] [address] [facility] [place] [id number] [address] [place] [phone] May, Diabetes E11.9 ; Other chron ic pain G89.29 ; Acute recurrent maxillary sinusitis J01.01 ; Bipolar I disorder with depression F31.9 and Anxiety disorder, unspecified F41.9 [facility] [address] [facility] [place] [id number] [address] [place] [phone] May, [facility] [address] [facility] [place] [id number] [address] [place] [phone] May, Diabetes E11.9 ; Bipolar I d isorder with depression F31.9 ; Anxiety disorder, unspecified F41.9 ; Other chronic pain G89.29 and Acute recurrent maxillary sinusitis J01.01 [facility] [address] [id number] [address] [place] [phone] May, [facility] [address] [facility] [place] [id number] [address] [place] [phone] May, Attention deficit hyperactiv ity disorder (ADHD), predominantly inattentive type F90.0 [facility] [address] [id number] [address] [place] [phone] May, [facility] [address] [facility] [place] [id number] [address] [place] [phone] Apr, Attention deficit hyperactiv ity disorder (ADHD), predominantly inattentive type F90.0 and Non-seasonal allergic rhinitis due to other allergic trigger J30.89 [place] [address] [place] [id number] [address] [place] [phone] Apr, Bipolar 1 disorder, depresse d, moderate F31.32 ; Panic disorder with agoraphobia F40.01 and Chronic post-traumatic stress disorder (PTSD) F43.12 [place] [address] [place] [id number] [address] [place] [phone] Apr, Dental examination Z01.20 [place] [address] [place] [id number] [place] [phone] Mar, [place] [address] [place] [id number] [place] [phone] Mar, [place] [address] [phone] Mar, Bipolar I disorder with depr ession F31.9 and Anxiety disorder, unspecified F41.9 [place] [address] [place] [id number] [address] [place] [id number] 08 Mar, 2016 Panic disorder with agorapho syd F40.01 ; Bipolar 1 disorder, depressed, moderate F31.32 and Chronic post-traumatic stress disorder (PTSD) F43.12 [place] [address] [place] [id number] [address] [place] [phone] Mar, [place] [address] [place] [id number] [address] [place] [phone] Mar, Dental caries K02.9 [place] [address] [place] [id number] [address] [place] [phone] Feb, Lumbago with sciatica, left side M54.42 ; Lumbago with sciatica, right side M54.41 and Other chronic pain G89.29 [place] [address] [place] [id number] [address] [place] [phone] 17 Feb, 2016 [facility] [address] [facility] [place] [id number] [address] [place] [phone] 14 Feb, 2016 [facility] [address] [facility] [place] [id number] [address] [place] [phone] Feb, Bipolar I disorder with depr ession F31.9 ; PTSD (post-traumatic stress disorder) F43.10 and Mood disorder F39 [facility] [address] [facility] [place] [id number] [address] [place] [phone] Feb, [facility] [address] [facility] [place] [id number] [address] [place] [phone] 11 Feb, 2016 Dental examination Z01.20 [facility] [address] [facility] [place] [id number] [address] [place] [phone] 07 Feb, 2016 [facility] [address] [facility] [place] [id number] [address] [place] [phone] Feb, Acute bronchitis, unspecifie d organism J20.9 [facility] [address] [facility] [place] [id number] [address] [place] [phone] 26 Jan, 2016 Mood disorder F39 ; Migraine without aura and without status migrainosus, not intractable G43.009 ; Irritable bowel syndrome, unspecified type K58.9 ; Diabetes E11.9 and Encounter for immunization Z23 [facility] [address] [facility] [place] [id number] [address] [place] [phone] 15 Jan, 2016 [facility] [address] [facility] [place] [id number] [address] [place] [phone] 06 Jan, 2016 [facility] [address] [facility] [place] [id number] [address] [place] [phone] Jan, [facility] [address] [facility] [place] [id number] [address] [place] [phone] Jan, [facility] [address] [facility] [place] [id number] [address] [place] [phone] Jan, [facility] [address] [id number] [address] [place] [phone] Dec, Bipolar I disorder with depr ession F31.9 ; PTSD (post-traumatic stress disorder) F43.10 and Panic disorder with agoraphobia F40.01 [facility] [address] [id number] [address] [place] [phone] Dec, Chronic obstructive pulmonar y disease, unspecified COPD type J44.9 ; Tremor R25.1 and Anxiety F41.9 [facility] [address] [id number] [address] [place] [phone] Dec, [facility] [address] [id number] [address] [place] [phone] Nov, Tremors of nervous system R2 5.1 and Cramping of feet R25.2 [facility] [address] [id number] [address] [place] [phone] Nov, [facility] [address] [id number] [address] [place] [phone] Nov, [facility] [address] [id number] [address] [place] [phone] Oct, Chronic obstructive pulmonar y disease, unspecified J44.9 [facility] [address] [id number] [address] [place] [phone] Oct, [facility] [address] [id number] [address] [place] [phone] Oct, Tremor R25.1 [facility] [address] [id number] [address] [place] [id number] Oct, Bipolar I disorder with depr ession F31.9 ; Diabetes E11.9 ; PTSD (post-traumatic stress disorder) F43.10 and Panic disorder with agoraphobia F40.01 [facility] [address] [id number] [address] [place] [phone] Oct, Mood disorder F39 [facility] [address] [id number] [address] [place] [phone] September, [facility] [address] [facility] [place] [id number] [address] [place] [phone] September, Diabetes E11.9 ; Bipolar I d isorder with depression F31.9 ; PTSD (post-traumatic stress disorder) F43.10 and Panic disorder with agoraphobia F40.01 [place] [address] [place] [id number] [address] [place] [phone] September, Mood disorder F39 ; Schizoaf fective disorder, unspecified type F25.9 ; Arthritis M19.90 ; Tremor R25.1 ; Acute non-recurrent frontal sinusitis J01.10 and Blood in stool K92.1 [place] [address] [place] [id number] [address] [place] [phone] September, [place] [address] [place] [id number] [address] [place] [phone] September, Chronic obstructive pulmonar y disease, unspecified J44.9 [place] [address] [place] [id number] [address] [place] [phone] September, Diabetes E11.9 [place] [address] [place] [id number] [address] [place] [phone] Aug, Other bipolar disorder F31.8 9 and Anxiety disorder, unspecified F41.9 [place] [id number] [place] [phone] Aug, [place] [address] [place] [id number] [address] [place] [phone] Aug, Diabetes E11.9 [place] [address] [place] [id number] [address] [place] [id number] Aug, [place] [address] [place] [id number] [address] [place] [phone] Aug, Diabetes E11.9 ; Fatigue R53 .83 and Dizziness R42 [place] [address] [place] [id number] [address] [place] [phone] 13 Aug, 2015 Other bipolar disorder F31.8 9 [facility] [address] [id number] [address] [place] [phone] 07 Aug, 2015 Generalized anxiety disorder F41.1 [facility] [address] [id number] [address] [place] [phone] 07 Aug, 2015 Other bipolar disorder F31.8 9 and Anxiety disorder, unspecified F41.9 [facility] [address] [id number] [address] [place] [phone] Aug, [facility] [address] [id number] [address] [place] [phone] Jul, [facility] [address] [id number] [address] [place] [phone] Jul, [facility] [address] [id number] [address] [place] [phone] Jul, Bronchitis J40 [facility] [address] [id number] [address] [place] [phone] Jul, Anxiety disorder F41.9 [facility] [address] [id number] [address] [place] [phone] Jul, Other bipolar disorder F31.8 9 and Anxiety disorder, unspecified F41.9 [facility] [address] [id number] [address] [place] [phone] Jul, Other bipolar disorder F31.8 9 and Fibromyalgia M79.7 [facility] [address] [id number] [address] [place] [phone] 10 Jul, 2015 [facility] [address] [id number] [address] [place] [phone] 09 Jul, 2015 [facility] [address] [id number] [address] [place] [phone] 08 Jul, 2015 [facility] [address] [facility] [place] [id number] [address] [place] [phone] Jul, Other bipolar disorder F31.8 9 and Anxiety disorder, unspecified F41.9 [facility] [address] [facility] [place] [id number] [address] [place] [phone] Jun, GERD (gastroesophageal reflu x disease) K21.9 [facility] [address] [facility] [place] [id number] [address] [place] [phone] Jun, [facility] [address] [place] [id number] [place] [phone] May, [facility] [address] [place] [id number] [place] [phone] May, Diabetes E11.9 ; Back pain M 54.9 ; GERD (gastroesophageal reflux disease) K21.9 ; Hypertension I10 and Peripheral neuropathy G62.9 [facility] [address] [place] [id number] [address] [place] [phone] Mar, [facility] [address] [place] [id number] [address] [place] [phone] Mar, [facility] [address] [place] [id number] [place] [phone] Mar, Acute sinusitis J01.90 and O titis media, left H66.92 [facility] [address] [place] [id number] [address] [place] [phone] Feb, [facility] [address] [place] [id number] [address] [place] [phone] Feb, [facility] [address] [place] [id number] [address] [place] [phone] Feb, [facility] [address] [place] [id number] [place] [phone] Feb, [facility] [address] [place] [id number] [address] [place] [phone] 29 Jan, 2015 [facility] [address] [place] [id number] [address] [place] [phone] Jan, Diabetes 250.00 and Back higinio n 724.5 [facility] [address] [facility] [place] [id number] [address] [place] [phone] Jan, [facility] [address] [facility] [place] [id number] [address] [place] [phone] Dec, Diabetes 250.00 ; Benign ess ential hypertension 401.1 and Allergic rhinitis 477.9 [facility] [address] [facility] [place] [id number] [address] [place] [phone] Dec, [facility] [address] [facility] [place] [id number] [address] [place] [phone] Dec, [facility] [address] [facility] [place] [id number] [address] [place] [phone] Dec, Psychosis 298.9 [facility] [address] [facility] [place] [id number] [address] [place] [phone] Dec, Medication side effect 995.2 0 and Generalized anxiety disorder 300.02 [facility] [address] [facility] [place] [id number] [address] [place] [phone] Dec, Acquired cognitive dysfuncti on 294.9 [facility] [address] [facility] [place] [id number] [address] [place] [phone] Dec, [facility] [address] [facility] [place] [id number] [address] [place] [phone] Dec, Unspecified myalgia and myos itis 729.1 and Generalized anxiety disorder 300.02 [facility] [address] [facility] [place] [id number] [address] [place] [phone] Nov, [facility] [address] [facility] [place] [id number] [address] [place] [phone] Nov, [facility] [address] [facility] [place] [id number] [address] [place] [phone] Nov, [facility] [address] [facility] [place] [id number] [address] [place] [phone] Nov, Upper respiratory infection 465.9 and Chronic airway obstruction, not elsewhere classified 496 [facility] [address] [id number] [address] [place] [phone] Nov, Hyponatremia 276.1 [facility] [address] [id number] [address] [place] [phone] Oct, [facility] [address] [id number] [address] [place] [id number] Oct, [facility] [address] [id number] [address] [place] [phone] Oct, [facility] [address] [id number] [address] [place] [phone] Oct, [facility] [address] [id number] [address] [place] [phone] Oct, Hyponatremia 276.1 [facility] [address] [id number] [address] [place] [phone] Oct, [facility] [address] [id number] [address] [place] [phone] Oct, [facility] [address] [facility] [place] [id number] [address] [place] [phone] Oct, Generalized anxiety disorder 300.02 [facility] [address] [facility] [place] [id number] [address] [place] [phone] Oct, Generalized anxiety disorder 300.02 and Diabetes 250.00 [facility] [address] [id number] [address] [place] [phone] Aug, [facility] [address] [id number] [address] [place] [phone] Aug, [facility] [address] [facility] [place] [id number] [address] [place] [phone] Jul, [facility] [address] [facility] [place] [id number] [address] [place] [id number] Jul, [facility] [address] [id number] [address] [place] [address], [place] [address] Jun, [facility] [address] [id number] [address] [place] [address], [place] [address] Jun, [facility] [address] [id number] [address] [place] [address], [place] [phone] Jun, [facility] [address] [id number] [address] [place] [address], [place] [address] Jun, [facility] [address] [id number] [address] [place] [address], [place] [address] Jun, [facility] [address] [id number] [address] [place] [address], [place] [address] May, [facility] [address] [id number] [address] [place] [address], [place] [address] May, [facility] [address] [id number] [address] [place] [address], [place] [address] Apr, [facility] [address] [id number] [address] [place] [address], [place] [address] Apr, [facility] [address] [id number] [address] [place] [address], [place] [address] Apr, [facility] [address] [id number] [address] [place] [address], [place] [address] Apr, [facility] [address] [id number] [address] [place] [address], [place] [address] Apr, [facility] [address] [id number] [address] [place] [address], [place] [address] Apr, [facility] [address] [id number] [address] [place] [address], [place] [address] Apr, [facility] [address] [id number] [address] [place] [address], [place] [address] Apr, [facility] [address] [id number] [address] [place] [address], [place] [address] Feb, [facility] [address] [id number] [address] [place] [address], [place] [address] Feb, [facility] [address] [id number] [address] [place] [address], [place] [address] Jan, [facility] [address] [id number] [address] [place] [address], [place] [address] Jan, [facility] [address] [id number] [address] [place] [address], [place] [address] Dec, [facility] [address] [id number] [address] [place] [address], [place] [address] Dec, [facility] [address] [id number] [address] [place] [address], [place] [address] Dec, [facility] [address] [id number] [address] [place] [address], [place] [address] Nov, [facility] [address] [id number] [address] [place] [address], [place] [address] Nov, [facility] [address] [id number] [address] [place] [address], [place] [address] Nov, [facility] [address] [id number] [address] [place] [address], [place] [address] Oct, [facility] [address] [id number] [address] [place] [address], [place] [address] Oct, [facility] [address] [id number] [address] [place] [address], [place] [address] Oct, [facility] [address] [id number] [address] [place] [address], [place] [address] September, [facility] [address] [id number] [address] [place] [address], [place] [address] September, [facility] [address] [id number] [address] [place] [address], [place] [address] September, [facility] [address] [id number] [address] [place] [address], [place] [address] 25 Aug, 2011 [facility] [place] [address] [id number] [address] [place] [address], [place] [address] 20 Aug, 2011 [facility] [address] [id number] [address] [place] [address], [place] [address] 19 Aug, 2011 [facility] [address] [id number] [address] [place] [address], [place] [address] 16 Aug, 2011 [facility] [address] [id number] [address] [place] [address], [place] [address] Jul, [facility] [address] [id number] [address] [place] [address], [place] [address] 21 Jun, 2011 [facility] [address] [id number] [address] [place] [address], [place] [address] 14 Jun, 2011 [facility] [address] [id number] [address] [place] [address], [place] [address] 13 Jun, 2011 [facility] [place] [address] [id number] [address] [place] [address], [place] [address] 07 Jun, 2011 [facility] [place] [address] [id number] [address] [place] [address], [place] [address] 03 Jun, 2011 [facility] [place] [address] [id number] [address] [place] [address], [place] [address] 13 May, 2011 [facility] [place] [address] [id number] [address] [place] [address], [place] [address] May, [facility] [address] [id number] [address] [place] [address], [place] [address] 09 May, 2011 [facility] [address] [id number] [address] [place] [address], [place] [id number] 04 May, 2011 [facility] [address] [id number] [address] [place] [address], [place] [address] 20 Apr, 2011 [facility] [address] [id number] [address] [place] [address] [address] 13 Apr, 2011 [facility] [address] [id number] [address] [place] [address], [place] [address] 05 Apr, 2011 [facility] [address] [id number] [address] [place] [address], [place] [address] Mar, [facility] [address] [id number] [address] [place] [address], [place] [address] Mar, [facility] [address] [id number] [address] [place] [address], [place] [address] Mar, [facility] [address] [id number] [address] [place] [address], [place] [address] 13 Feb, 2011 [facility] [address] [id number] [address] [place] [address], [place] [address] 13 Feb, 2011 [facility] [address] [id number] [address] [place] [address], [place] [address] Feb, [facility] [address] [id number] [address] [place] [address], [place] [address] Nov, [facility] [address] [id number] [address] [place] [address], [place] [address] September, [facility] [address] [id number] [address] [place] [address], [place] [address] 12 Aug, 2010 [facility] [address] [id number] [address] [place] [address], [place] [address] 14 Jul, 2010 [facility] [address] [id number] [address] [place] [address], [place] [address] May, [facility] [address] [id number] [address] [place] [address], [place] [address] 31 Apr, 2010 [facility] [address] [id number] [address] [place] [address], [place] [address] 30 Apr, 2010 [facility] [address] [id number] [address] [place] [address], [place] [address] 13 Apr, 2010 [facility] [address] [id number] [address] [place] [id number] Apr, [facility] [address] [facility] [id number] [address] [place] [id number] Apr, IMMUNIZATIONS No Known Immunizations SOCIAL HISTORY Never Assessed REASON FOR VISIT controlled refill PLAN OF CARE VITAL SIGNS MEDICATIONS Medication Instructions Dosage Frequency Start Date End Date Duration S samantha Lorenzoco 7.5-325 MG Orally 3 times a day 1 tablet as needed 8h Dec, 28 days Active RESULTS No Results PROCEDURES [...]
--- OUTSIDE RECORDS SUMMARY | 2019-07-17 11:25 | XMS REPORT ---
Author Author Sujey WILLS Organization [facility] Address [address] [place] [address] Care Team Providers Care Treasury Manager Name Role Phone JOHANNGISELEYVON Unavailable PROBLEMS Type Condition ICD9-CM Code IGY07-BI Code Onset Dates Condition S tatus SNOMED Code Problem Diabetes E11.9 Active 08171093 Problem GERD (gastroesophageal reflux disease) K21.9 Active 340503088 Problem Anxiety disorder, unspecified F41.9 Active 732092026 Problem Hypertension I10 Active 0708895 3 Problem Other bipolar disorder F31.89 Active 73745994 Problem Fibromyalgia M79.7 Active 6432097 7 Problem Panic disorder with agoraphobia F40.01 Active 19877449 Problem Chronic obstructive pulmonary disease, unspecified J44.9 Active 14237769 Problem Lumbago with sciatica, left side M54.42 Active 807702051 Problem Migraine without aura and without status migrain osus, not intractable G43.009 Active 614954624 Problem Lumbago with sciatica, right side M54.41 Active 597699190 Problem Fibrocystic disease of right breast N60.11 Active 17482219 Problem Other chronic pain G89.29 Active 8 5133163 Problem Fibrocystic disease of left breast N60.12 Active 03606602 Problem Irritable bowel syndrome with constipation K58.1 Active 789077573 Problem Arthritis M19.90 Active 1664781 Problem Abnormal mammogram of right breast R92.8 Active 872195141 Problem Daytime somnolence R40.0 Active 1 09120853821 Problem Bipolar affective disorder, remission status unspecified F31.9 Active 73926900 Problem Chronic post-traumatic stress disorder (PTSD) F43. 12 Active 120946251 Problem Bipolar 1 disorder, depressed, moderate F31.32 Active 80423595 Problem Schizoaffective disorder, bipolar type F25.0 Active 26908275 Problem Irritable bowel syndrome with both constipation and diarrh ea K58.2 Active 34113911 Problem Slow transit constipation K59.01 Acti ve 71143326 Problem Essential tremor G25.0 Active 609 646727 Problem Acute non-recurrent maxillary sinusitis J01.00 Active 05761218 Problem Back pain M54.9 Active 146801357 Problem Bipolar 1 disorder, depressed, partial remission F 31.75 Active 07508512 Problem Attention deficit hyperactiv ity disorder (ADHD), predominantly inattentive type F90.0 Active 19057171 Problem Bipolar I disorder with depression F31.9 Active 54939163 Problem Panlobular emphysema J43.1 Active 9097348 Problem Akathisia G25.71 Active 722069660 Problem Mild persistent asthma without complication J45.30 Active 035330314 Problem Moderate persistent asthma without complication J4 5.40 Active [id number] ALLERGIES No Information ENCOUNTERS Encounter Location Date Diagnosis [place] [address] [facility] [id number] [address] [place] [phone] Mar, [place] [address] [place] [id number] [address] [place] [phone] 27 Jan, 2018 [place] [address] [facility] [id number] [address] [place] [phone] 20 Jan, 2018 Cerebrovascular accident (CV A) due to occlusion of right cerebellar artery I63.541 [place] [address] [facility] [id number] [address] [place] [id number] 19 Jan, 2018 [place] [address] [facility] [id number] [address] [place] [id number] 13 Jan, 2018 Arthritis M19.90 [place] [address] [facility] [id number] [address] [place] [id number] 07 Jan, 2018 [place] [address] [facility] [id number] [address] [place] [id number] 04 Jan, 2018 Abnormal mammogram of right breast R92.8 [place] [address] [facility] [id number] [address] [place] [phone] Dec, Daytime somnolence R40.0 and Right otitis media with effusion H65.91 [place] [address] [id number] [address] [place] [phone] Dec, [facility] [address] [id number] [address] [place] [id number] Dec, Cerebrovascular accident (CV A) due to occlusion of right cerebellar artery I63.541 [facility] [address] [id number] [address] [place] [phone] Dec, [facility] [address] [id number] [address] [place] [phone] Dec, [facility] [address] [id number] [address] [place] [phone] Nov, Bipolar 1 disorder, depresse d, partial remission F31.75 and Panic disorder with agoraphobia F40.01 [facility] [address] [id number] [address] [place] [phone] Nov, Panlobular emphysema J43.1 [facility] [address] [facility] [id number] [address] [place] [id number] Nov, Cerebrovascular accident (CV A) due to occlusion of right cerebellar artery I63.541 and Acute non-recurrent maxillary sinusitis J01.00 [facility] [address] [id number] [address] [place] [phone] Nov, Panlobular emphysema J43.1 [facility] [address] [id number] [address] [place] [id number] Nov, [facility] [address] [id number] [address] [place] [phone] Nov, [facility] [address] [id number] [address] [place] [phone] Nov, [facility] [address] [facility] [id number] [address] [place] [id number] Nov, [facility] [address] [facility] [id number] [address] [place] [phone] Nov, [place] [address] [id number] [address] [place] [id number] Nov, [facility] [address] [id number] [address] [place] [phone] Nov, [facility] [address] [facility] [id number] [address] [place] [phone] Nov, Mild persistent asthma witho ut complication J45.30 and Irritable bowel syndrome with both constipation and diarrhea K58.2 [facility] [address] [id number] [address] [place] [phone] Nov, [facility] [address] [facility] [id number] [address] [place] [phone] Oct, [facility] [address] [facility] [id number] [address] [place] [phone] Oct, [facility] [address] [facility] [id number] [address] [place] [phone] Oct, Type 2 diabetes mellitus wit h diabetic neuropathy, unspecified 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 insulin use E11.40 ; Diabetes E11.9 ; Slow transit constipation K59.01 ; Edema of both legs R60.0 and Dysfunction of right eustachian tube H69.81 [facility] [address] [facility] [id number] [address] [place] [phone] Oct, Frequent headaches R51 [facility] [address] [facility] [id number] [address] [place] [phone] Oct, [facility] [address] [facility] [id number] [address] [place] [phone] Oct, [facility] [address] [facility] [id number] [address] [place] [phone] Oct, [facility] [address] [facility] [id number] [address] [place] [phone] Oct, [facility] [address] [facility] [id number] [address] [place] [phone] Oct, [facility] [address] [facility] [id number] [address] [place] [phone] Oct, [facility] [address] [facility] [id number] [address] [place] [phone] Oct, [facility] [address] [facility] [id number] [address] [place] [phone] Oct, [facility] [address] [facility] [id number] [address] [place] [phone] September, Frequent headaches R51 [facility] [address] [facility] [id number] [address] [place] [phone] September, Bilateral otitis media with effusion H65.93 ; Dizziness R42 and Essential tremor G25.0 [facility] [address] [facility] [id number] [address] [place] [phone] September, Chronic obstructive pulmonar y disease, unspecified COPD type J44.9 [facility] [address] [facility] [id number] [address] [place] [phone] September, Chronic obstructive pulmonar y disease, unspecified COPD type J44.9 [facility] [address] [facility] [id number] [address] [place] [phone] September, Migraine without aura and wi thout status migrainosus, not intractable G43.009 [facility] [address] [facility] [id number] [address] [place] [phone] September, [facility] [address] [facility] [id number] [address] [place] [phone] September, [facility] [address] [facility] [id number] [address] [place] [phone] September, [facility] [address] [facility] [id number] [address] [place] [phone] September, Frequent headaches R51 [facility] [address] [facility] [id number] [address] [place] [phone] Aug, [facility] [address] [place] [id number] [address] [place] [id number] Aug, Breast mass, right N63.10 [place] [address] [facility] [id number] [address] [place] [phone] Aug, Breast lump N63.0 [place] [address] [place] [id number] [address] [place] [phone] Aug, [place] [address] [place] [id number] [address] [place] [phone] Aug, Bipolar affective disorder, remission status unspecified F31.9 and Diabetes E11.9 [place] [address] [phone] Aug, Diabetes E11.9 ; Schizoaffec tive disorder, bipolar type F25.0 ; Pharyngitis due to other organism J02.8 ; Panlobular emphysema J43.1 and Irritable bowel syndrome with both constipation and diarrhea K58.2 [place] [address] [place] [id number] [address] [place] [phone] Aug, Abnormal mammogram R92.8 [place] [address] [place] [id number] [place] [phone] Aug, [place] [address] [place] [id number] [place] [phone] Aug, Bipolar 1 disorder, depresse d, moderate F31.32 ; Panic disorder with agoraphobia F40.01 and Chronic post-traumatic stress disorder (PTSD) F43.12 [place] [id number] [place] [phone] Aug, [place] [address] [place] [id number] [address] [place] [phone] Aug, [place] [address] [place] [id number] [address] [place] [phone] Aug, [place] [address] [id number] 26 Jul, 2017 [facility] [address] [id number] [address] [place] [id number] 20 Jul, 2017 Mild persistent asthma witho ut complication J45.30 [facility] [address] [id number] [address] [place] [id number] 19 Jul, 2017 Mild persistent asthma witho ut complication J45.30 [facility] [address] [id number] [address] [place] [id number] 15 Jul, 2017 Bipolar affective disorder, remission status unspecified F31.9 ; Diabetes E11.9 and Irritable bowel syndrome with constipation K58.1 [facility] [address] [id number] [address] [place] [phone] Jul, [facility] [address] [id number] [address] [place] [phone] Jul, [facility] [address] [id number] [address] [place] [phone] Jul, Frequent headaches R51 [facility] [address] [id number] [address] [place] [id number] Jul, [facility] [address] [id number] [address] [place] [phone] Jul, [facility] [address] [id number] [address] [place] [phone] Jul, [facility] [address] [id number] [address] [place] [phone] Jul, Frequent headaches R51 ; Fib rocystic disease of left breast N60.12 ; Fibrocystic disease of right breast N60.11 and Diabetes E11.9 [facility] [address] [id number] [address] [place] [phone] Jul, [facility] [address] [id number] [address] [place] [phone] Jul, [facility] [address] [id number] [address] [place] [phone] 21 Jun, 2017 Exudative tonsillitis J03.90 [facility] [address] [facility] [id number] [address] [place] [id number] 20 Jun, 2017 [facility] [address] [facility] [id number] [address] [place] [id number] 19 Jun, 2017 [facility] [address] [facility] [id number] [address] [place] [id number] 15 Jun, 2017 Mild persistent asthma witho ut complication J45.30 ; Chronic obstructive pulmonary disease, unspecified COPD type J44.9 and Exudative tonsillitis J03.90 [facility] [address] [facility] [id number] [phone] 13 Jun, 2017 Encounter for immunization Z 23 [facility] [address] [facility] [id number] [address] [place] [id number] 12 Jun, 2017 [facility] [address] [id number] Jun, [facility] [address] [facility] [id number] [address] [place] [phone] 09 Jun, 2017 [facility] [address] [place] [id number] [address] [place] [phone] 06 Jun, 2017 Tonsillitis J03.90 [facility] [address] [facility] [id number] [address] [place] [id number] 05 Jun, 2017 [facility] [address] [facility] [id number] [address] [place] [id number] Jun, Acute non-recurrent maxillar y sinusitis J01.00 [facility] [address] [facility] [id number] [address] [place] [phone] 02 Jun, 2017 [facility] [address] [facility] [id number] [address] [place] [id number] May, [facility] [address] [place] [id number] [address] [place] [phone] May, [facility] [address] [facility] [id number] [address] [place] [phone] May, GERD (gastroesophageal reflu x disease) K21.9 [facility] [address] [facility] [id number] [address] [place] [id number] 17 May, 2017 Migraine without aura and wi thout status migrainosus, not intractable G43.009 [facility] [address] [facility] [id number] [address] [place] [phone] May, [facility] [address] [place] [id number] [place] [phone] May, [facility] [address] [id number] May, Panlobular emphysema J43.1 a nd Acute non-recurrent maxillary sinusitis J01.00 [place] [address] [id number] May, Bipolar 1 disorder, depresse d, moderate F31.32 ; Panic disorder with agoraphobia F40.01 and Akathisia G25.71 [facility] [address] [place] [id number] [address] [place] [phone] Apr, [facility] [address] [address] Apr, [facility] [address] [address] Apr, Acute non-recurrent maxillar y sinusitis J01.00 [facility] [address] [facility] [id number] [address] [place] [phone] Apr, Panlobular emphysema J43.1 [facility] [address] [facility] [id number] [address] [place] [phone] 04 Apr, 2017 [facility] [address] [place] [id number] [address] [place] [id number] Apr, Exudative tonsillitis J03.90 and Sore throat J02.9 [facility] [address] [facility] [id number] [address] [place] [phone] Mar, [facility] [address] [facility] [id number] [address] [place] [phone] Mar, Acute non-recurrent maxillar y sinusitis J01.00 [place] [address] [facility] [id number] [address] [place] [phone] Mar, [facility] [address] [place] [id number] [place] [phone] Mar, Panlobular emphysema J43.1 a nd Diabetes E11.9 [place] [address] [place] [id number] [address] [place] [phone] Mar, [facility] [address] [place] [id number] [place] [phone] Feb, Wheezing R06.2 and Acute rec urrent pansinusitis J01.41 [place] [address] [place] [id number] [address] [place] [phone] Feb, [place] [address] [place] [id number] [address] [place] [id number] Feb, Acute non-recurrent maxillar y sinusitis J01.00 [place] [address] [place] [id number] [address] [place] [id number] Feb, Chronic obstructive pulmonar y disease, unspecified J44.9 [facility] [address] [facility] [id number] [address] [place] [phone] Feb, Hypoxemia R09.02 and Chronic obstructive pulmonary disease, unspecified J44.9 [facility] [address] [place] [id number] [address] [place] [id number] Jan, Bipolar 1 disorder, depresse d, moderate F31.32 ; Panic disorder with agoraphobia F40.01 ; Chronic post-traumatic stress disorder (PTSD) F43.12 ; Diabetes E11.9 and Moderate persistent asthma without complication J45.40 [facility] [address] [id number] [address] [place] [id number] 22 Jan, 2017 [facility] [address] [id number] [address] [place] [id number] 19 Jan, 2017 Acute non-recurrent maxillar y sinusitis J01.00 [facility] [address] [id number] [address] [place] [phone] 18 Jan, 2017 [facility] [address] [id number] [address] [place] [id number] Jan, [facility] [address] [id number] [address] [place] [phone] Jan, Moderate persistent asthma w ithout complication J45.40 and Hypoxemia R09.02 [facility] [address] [id number] [address] [place] [phone] Jan, Moderate persistent asthma w ithout complication J45.40 and Hypoxemia R09.02 [facility] [address] [id number] [address] [place] [id number] Jan, [facility] [address] [id number] [address] [place] [id number] Dec, Acute non-recurrent maxillar y sinusitis J01.00 [facility] [address] [id number] [address] [place] [phone] Dec, Chronic obstructive pulmonar y disease, unspecified J44.9 [facility] [address] [id number] [address] [place] [id number] Dec, [facility] [address] [id number] [address] [place] [id number] Dec, Mild persistent asthma witho ut complication J45.30 and Other chronic pain G89.29 [facility] [address] [id number] [address] [place] [phone] Nov, [facility] [address] [id number] [address] [place] [id number] Nov, Acute non-recurrent maxillar y sinusitis J01.00 [facility] [address] [id number] [address] [place] [phone] Nov, [facility] [address] [id number] [address] [place] [phone] Nov, [facility] [address] [id number] [address] [place] [phone] Oct, [facility] [address] [id number] [address] [place] [phone] Oct, Bipolar 1 disorder, depresse d, partial remission F31.75 ; Panic disorder with agoraphobia F40.01 and Chronic post-traumatic stress disorder (PTSD) F43.12 [facility] [address] [id number] [address] [place] [id number] Oct, Acute non-recurrent maxillar y sinusitis J01.00 [facility] [address] [id number] [address] [place] [phone] Oct, [facility] [address] [id number] [address] [place] [id number] Oct, Diabetes E11.9 [facility] [address] [id number] [address] [place] [phone] September, Diabetes E11.9 [facility] [address] [id number] [address] [place] [phone] September, Diabetes E11.9 and Sinus tac hycardia R00.0 [facility] [address] [id number] [address] [place] [phone] September, [facility] [address] [id number] [address] [place] [phone] September, [facility] [address] [id number] [address] [place] [phone] Aug, Diabetes E11.9 and Lumbago w ith sciatica, right side M54.41 [facility] [address] [facility] [id number] [address] [place] [phone] Aug, [facility] [address] [facility] [id number] [address] [place] [id number] Jul, Bipolar 1 disorder, depresse d, moderate F31.32 ; Panic disorder with agoraphobia F40.01 and Chronic post-traumatic stress disorder (PTSD) F43.12 [facility] [address] [facility] [id number] [address] [place] [phone] Jul, Sore throat J02.9 [facility] [address] [facility] [id number] [address] [place] [phone] Jul, [facility] [address] [place] [id number] [address] [place] [phone] Jul, [facility] [address] [place] [id number] [address] [place] [id number] Jul, [facility] [address] [facility] [id number] [address] [place] [phone] Jul, [facility] [address] [place] [id number] [address] [place] [id number] Jul, Sore throat J02.9 and Pharyn gitis, unspecified etiology J02.9 [facility] [address] [facility] [id number] [address] [place] [phone] Jun, [facility] [address] [facility] [id number] [address] [place] [phone] Jun, Diabetes E11.9 [facility] [address] [facility] [id number] [address] [place] [phone] Jun, [facility] [address] [id number] [address] [place] [id number] Jun, [facility] [address] [id number] [address] [place] [phone] Jun, [facility] [address] [id number] [address] [place] [id number] Jun, [facility] [address] [facility] [id number] [address] [place] [phone] Jun, [facility] [address] [id number] [place] [phone] Jun, [facility] [address] [id number] [address] [place] [phone] Jun, [facility] [address] [id number] [address] [place] [phone] Jun, [facility] [address] [facility] [id number] [address] [place] [phone] May, Diabetes E11.9 ; Other chron ic pain G89.29 ; Acute recurrent maxillary sinusitis J01.01 ; Bipolar I disorder with depression F31.9 and Anxiety disorder, unspecified F41.9 [facility] [address] [facility] [id number] [address] [place] [phone] May, [facility] [address] [facility] [id number] [address] [place] [phone] May, Diabetes E11.9 ; Bipolar I d isorder with depression F31.9 ; Anxiety disorder, unspecified F41.9 ; Other chronic pain G89.29 and Acute recurrent maxillary sinusitis J01.01 [facility] [address] [id number] [address] [place] [phone] May, [facility] [address] [facility] [id number] [address] [place] [phone] May, Attention deficit hyperactiv ity disorder (ADHD), predominantly inattentive type F90.0 [facility] [address] [facility] [id number] [address] [place] [phone] May, [facility] [address] [facility] [id number] [address] [place] [phone] Apr, Attention deficit hyperactiv ity disorder (ADHD), predominantly inattentive type F90.0 and Non-seasonal allergic rhinitis due to other allergic trigger J30.89 [place] [address] [facility] [id number] [address] [place] [phone] Apr, Bipolar 1 disorder, depresse d, moderate F31.32 ; Panic disorder with agoraphobia F40.01 and Chronic post-traumatic stress disorder (PTSD) F43.12 [place] [address] [facility] [id number] [address] [place] [phone] Apr, Dental examination Z01.20 [place] [address] [facility] [id number] [address] [place] [phone] Mar, [place] [address] [facility] [id number] [address] [place] [phone] Mar, [place] [address] [place] [id number] [address] [place] [phone] Mar, Bipolar I disorder with depr ession F31.9 and Anxiety disorder, unspecified F41.9 [place] [address] [facility] [id number] [address] [place] [phone] 08 Mar, 2016 Panic disorder with agorapho syd F40.01 ; Bipolar 1 disorder, depressed, moderate F31.32 and Chronic post-traumatic stress disorder (PTSD) F43.12 [place] [address] [place] [id number] [address] [place] [phone] Mar, [place] [address] [facility] [id number] [address] [place] [phone] Mar, Dental caries K02.9 [place] [address] [place] [id number] [address] [place] [phone] Feb, Lumbago with sciatica, left side M54.42 ; Lumbago with sciatica, right side M54.41 and Other chronic pain G89.29 [place] [address] [place] [id number] [address] [place] [phone] 17 Feb, 2016 [facility] [address] [id number] [address] [place] [phone] 14 Feb, 2016 [facility] [address] [facility] [id number] [address] [place] [phone] Feb, Bipolar I disorder with depr ession F31.9 ; PTSD (post-traumatic stress disorder) F43.10 and Mood disorder F39 [facility] [address] [id number] [address] [place] [phone] 13 Feb, 2016 [facility] [address] [facility] [id number] [address] [place] [phone] 11 Feb, 2016 Dental examination Z01.20 [facility] [address] [facility] [id number] [address] [place] [phone] 07 Feb, 2016 [facility] [address] [facility] [id number] [address] [place] [phone] 03 Feb, 2016 Acute bronchitis, unspecifie d organism J20.9 [facility] [address] [facility] [id number] [address] [place] [phone] 26 Jan, 2016 Mood disorder F39 ; Migraine without aura and without status migrainosus, not intractable G43.009 ; Irritable bowel syndrome, unspecified type K58.9 ; Diabetes E11.9 and Encounter for immunization Z23 [facility] [address] [facility] [id number] [address] [place] [phone] 15 Jan, 2016 [facility] [address] [facility] [id number] [address] [place] [phone] 06 Jan, 2016 [facility] [address] [facility] [id number] [address] [place] [phone] Jan, [facility] [address] [facility] [id number] [address] [place] [phone] Jan, [facility] [address] [facility] [id number] [address] [place] [phone] Jan, [facility] [address] [id number] [address] [place] [phone] Dec, Bipolar I disorder with depr ession F31.9 ; PTSD (post-traumatic stress disorder) F43.10 and Panic disorder with agoraphobia F40.01 [facility] [address] [id number] [address] [place] [phone] Dec, Chronic obstructive pulmonar y disease, unspecified COPD type J44.9 ; Tremor R25.1 and Anxiety F41.9 [facility] [address] [id number] [address] [place] [phone] Dec, [facility] [address] [id number] [address] [place] [phone] Nov, Tremors of nervous system R2 5.1 and Cramping of feet R25.2 [facility] [address] [id number] [address] [place] [phone] Nov, [facility] [address] [id number] [address] [place] [phone] Nov, [facility] [address] [id number] [address] [place] [phone] Oct, Chronic obstructive pulmonar y disease, unspecified J44.9 [facility] [address] [id number] [address] [place] [phone] Oct, [facility] [address] [id number] [address] [place] [phone] Oct, Tremor R25.1 [facility] [address] [id number] [address] [place] [phone] Oct, Bipolar I disorder with depr ession F31.9 ; Diabetes E11.9 ; PTSD (post-traumatic stress disorder) F43.10 and Panic disorder with agoraphobia F40.01 [facility] [address] [id number] [address] [place] [phone] Oct, Mood disorder F39 [facility] [address] [id number] [address] [place] [phone] September, [facility] [address] [facility] [id number] [address] [place] [phone] September, Diabetes E11.9 ; Bipolar I d isorder with depression F31.9 ; PTSD (post-traumatic stress disorder) F43.10 and Panic disorder with agoraphobia F40.01 [facility] [address] [place] [id number] [address] [place] [phone] September, Mood disorder F39 ; Schizoaf fective disorder, unspecified type F25.9 ; Arthritis M19.90 ; Tremor R25.1 ; Acute non-recurrent frontal sinusitis J01.10 and Blood in stool K92.1 [facility] [address] [place] [id number] [address] [place] [phone] September, [facility] [id number] [place] [phone] September, Chronic obstructive pulmonar y disease, unspecified J44.9 [facility] [address] [place] [id number] [address] [place] [phone] September, Diabetes E11.9 [place] [address] [place] [id number] [address] [place] [phone] Aug, Other bipolar disorder F31.8 9 and Anxiety disorder, unspecified F41.9 [facility] [address] [place] [id number] [address] [place] [phone] Aug, [facility] [address] [facility] [id number] [address] [place] [phone] Aug, Diabetes E11.9 [facility] [address] [place] [id number] [address] [place] [phone] Aug, [place] [address] [place] [id number] [address] [place] [phone] Aug, Diabetes E11.9 ; Fatigue R53 .83 and Dizziness R42 [place] [address] [id number] [address] [place] [phone] 13 Aug, 2015 Other bipolar disorder F31.8 9 [facility] [address] [id number] [address] [place] [phone] 07 Aug, 2015 Generalized anxiety disorder F41.1 [facility] [address] [id number] [address] [place] [phone] 07 Aug, 2015 Other bipolar disorder F31.8 9 and Anxiety disorder, unspecified F41.9 [facility] [address] [id number] [address] [place] [phone] 04 Aug, 2015 [facility] [address] [id number] [address] [place] [phone] 29 Jul, 2015 [facility] [address] [id number] [address] [place] [phone] 24 Jul, 2015 [facility] [address] [id number] [address] [place] [phone] Jul, Bronchitis J40 [facility] [address] [id number] [address] [place] [phone] Jul, Anxiety disorder F41.9 [facility] [address] [id number] [address] [place] [phone] Jul, Other bipolar disorder F31.8 9 and Anxiety disorder, unspecified F41.9 [facility] [address] [id number] [address] [place] [id number] 18 Jul, 2015 Other bipolar disorder F31.8 9 and Fibromyalgia M79.7 [facility] [address] [id number] [address] [place] [phone] 10 Jul, 2015 [facility] [address] [id number] [address] [place] [phone] 09 Jul, 2015 [facility] [address] [id number] [address] [place] [phone] 08 Jul, 2015 [facility] [address] [id number] [address] [place] [phone] Jul, Other bipolar disorder F31.8 9 and Anxiety disorder, unspecified F41.9 [facility] [address] [facility] [id number] [address] [place] [phone] Jun, GERD (gastroesophageal reflu x disease) K21.9 [facility] [address] [facility] [id number] [address] [place] [phone] Jun, [facility] [address] [facility] [id number] [address] [place] [phone] May, [facility] [address] [facility] [id number] [address] [place] [phone] May, Diabetes E11.9 ; Back pain M 54.9 ; GERD (gastroesophageal reflux disease) K21.9 ; Hypertension I10 and Peripheral neuropathy G62.9 [facility] [address] [facility] [id number] [address] [place] [id number] Mar, [facility] [address] [facility] [id number] [address] [place] [phone] Mar, [facility] [address] [facility] [id number] [address] [place] [phone] Mar, Acute sinusitis J01.90 and O titis media, left H66.92 [facility] [address] [facility] [id number] [address] [place] [phone] Feb, [facility] [address] [facility] [id number] [address] [place] [phone] Feb, [facility] [address] [facility] [id number] [address] [place] [phone] Feb, [facility] [address] [facility] [id number] [address] [place] [phone] Feb, [facility] [address] [facility] [id number] [address] [place] [phone] 29 Jan, 2015 [facility] [address] [place] [id number] [address] [place] [phone] Jan, Diabetes 250.00 and Back higinio n 724.5 [facility] [address] [facility] [id number] [address] [place] [id number] Jan, [facility] [address] [facility] [id number] [address] [place] [phone] Dec, Diabetes 250.00 ; Benign ess ential hypertension 401.1 and Allergic rhinitis 477.9 [facility] [address] [facility] [id number] [address] [place] [phone] Dec, [facility] [address] [facility] [id number] [address] [place] [phone] Dec, [facility] [address] [facility] [id number] [address] [place] [phone] Dec, Psychosis 298.9 [facility] [address] [place] [id number] [address] [place] [phone] Dec, Medication side effect 995.2 0 and Generalized anxiety disorder 300.02 [facility] [address] [facility] [id number] [address] [place] [phone] Dec, Acquired cognitive dysfuncti on 294.9 [facility] [address] [facility] [id number] [address] [place] [phone] Dec, [facility] [address] [facility] [id number] [address] [place] [phone] Dec, Unspecified myalgia and myos itis 729.1 and Generalized anxiety disorder 300.02 [facility] [address] [facility] [id number] [address] [place] [phone] Nov, [facility] [address] [facility] [id number] [address] [place] [phone] Nov, [facility] [address] [facility] [id number] [address] [place] [phone] Nov, [facility] [address] [facility] [id number] [address] [place] [phone] Nov, Upper respiratory infection 465.9 and Chronic airway obstruction, not elsewhere classified 496 [facility] [address] [id number] [address] [place] [phone] Nov, Hyponatremia 276.1 [facility] [address] [id number] [address] [place] [phone] Oct, [facility] [address] [id number] [address] [place] [phone] Oct, [facility] [address] [id number] [address] [place] [phone] Oct, [facility] [address] [id number] [address] [place] [phone] Oct, [facility] [address] [id number] [address] [place] [phone] Oct, Hyponatremia 276.1 [facility] [address] [id number] [address] [place] [phone] Oct, [facility] [address] [id number] [address] [place] [id number] Oct, [facility] [address] [facility] [id number] [address] [place] [phone] Oct, Generalized anxiety disorder 300.02 [facility] [address] [id number] [address] [place] [phone] Oct, Generalized anxiety disorder 300.02 and Diabetes 250.00 [facility] [address] [id number] [address] [place] [phone] Aug, [facility] [address] [id number] [address] [place] [phone] Aug, [facility] [address] [facility] [id number] [address] [place] [id number] Jul, [facility] [address] [facility] [id number] [address] [place] [phone] Jul, [facility] [address] [id number] [address] [place] [address], [place] [address] Jun, [facility] [address] [id number] [address] [place] [address], [place] [address] Jun, [facility] [address] [id number] [address] [place] [address], [place] [address] Jun, [facility] [address] [id number] [address] [place] [address], [place] [address] Jun, [facility] [address] [id number] [address] [place] [address], [place] [address] Jun, [facility] [address] [id number] [address] [place] [address], [place] [address] May, [facility] [address] [id number] [address] [place] [address], [place] [address] May, [facility] [address] [id number] [address] [place] [address], [place] [address] Apr, [facility] [address] [id number] [address] [place] [address], [place] [address] Apr, [facility] [address] [id number] [address] [place] [address], [place] [address] Apr, [facility] [address] [id number] [address] [place] [address], [place] [address] 18 Apr, 2013 [facility] [address] [id number] [address] [place] [address], [place] [address] 17 Apr, 2013 [facility] [address] [id number] [address] [place] [address], [place] [address] Apr, [facility] [address] [id number] [address] [place] [address], [place] [address] Apr, [facility] [address] [id number] [address] [place] [address], [place] [address] 02 Apr, 2013 [facility] [address] [id number] [address] [place] [address], [place] [address] Feb, [facility] [address] [id number] [address] [place] [address], [place] [address] Feb, [facility] [address] [id number] [address] [place] [address], [place] [address] Jan, [facility] [address] [id number] [address] [place] [address], [place] [address] Jan, [facility] [address] [id number] [address] [place] [address], [place] [address] Dec, [facility] [address] [id number] [address] [place] [address], [place] [address] Dec, [facility] [address] [id number] [address] [place] [address], [place] [address] Dec, [facility] [address] [id number] [address] [place] [address], [place] [address] Nov, [facility] [address] [id number] [address] [place] [address], [place] [address] Nov, [facility] [address] [id number] [address] [place] [address], [place] [address] Nov, [facility] [address] [id number] [address] [place] [address], [place] [address] Oct, [facility] [address] [id number] [address] [place] [address], [place] [address] Oct, [facility] [address] [id number] [address] [place] [address], [place] [address] Oct, [facility] [address] [id number] [address] [place] [address], [place] [address] September, [facility] [address] [id number] [address] [place] [address], [place] [address] September, [facility] [address] [id number] [address] [place] [address], [place] [address] September, [facility] [address] [id number] [address] [place] [address], [place] [address] 25 Aug, 2011 [facility] [address] [id number] [address] [place] [address], [place] [address] 20 Aug, 2011 [facility] [address] [id number] [address] [place] [address], [place] [address] 19 Aug, 2011 [facility] [address] [id number] [address] [place] [address], [place] [address] 16 Aug, 2011 [facility] [address] [id number] [address] [place] [address], [place] [address] Jul, [facility] [address] [id number] [address] [place] [address], [place] [address] 21 Jun, 2011 [facility] [address] [id number] [address] [place] [address], [place] [address] 14 Jun, 2011 [facility] [address] [id number] [address] [place] [address], [place] [address] 13 Jun, 2011 [facility] [address] [id number] [address] [place] [address], [place] [address] 07 Jun, 2011 [facility] [address] [id number] [address] [place] [address], [place] [address] 03 Jun, 2011 [facility] [address] [id number] [address] [place] [address], [place] [address] May, [facility] [address] [id number] [address] [place] [address], [place] [address] May, [facility] [address] [id number] [address] [place] [address], [place] [address] May, [facility] [address] [id number] [address] [place] [address], [place] [address] 04 May, 2011 [facility] [address] [id number] [address] [place] [address], [place] [address] Apr, [facility] [address] [id number] [address] [place] [address], [place] [address] 13 Apr, 2011 [facility] [address] [id number] [address] [place] [address], [place] [address] 05 Apr, 2011 [facility] [address] [id number] [address] [place] [address], [place] [address] Mar, [facility] [address] [id number] [address] [place] [address], [place] [address] Mar, [facility] [address] [id number] [address] [place] [address], [place] [address] Mar, [facility] [address] [id number] [address] [place] [address], [place] [address] 13 Feb, 2011 [facility] [address] [id number] [address] [place] [address], [place] [address] 13 Feb, 2011 [facility] [address] [id number] [address] [place] [address], [place] [address] 13 Feb, 2011 [facility] [address] [id number] [address] [place] [address], [place] [address] Nov, [facility] [address] [id number] [address] [place] [address], [place] [address] September, [facility] [address] [id number] [address] [place] [address], [place] [address] Aug, [facility] [address] [id number] [address] [place] [address], [place] [address] 14 Jul, 2010 [facility] [address] [id number] [address] [place] [address], [place] [address] May, [facility] [address] [id number] [address] [place] [address], [place] [address] 31 Apr, 2010 [facility] [address] [id number] [address] [place] [address], [place] [address] 30 Apr, 2010 [facility] [address] [id number] [address] [place] [address], [place] [id number] 13 Apr, 2010 [facility] [address] [id number] [address] [place] [id number] Apr, [facility] [address] [facility] [id number] [address] [place] [phone] Apr, IMMUNIZATIONS No Known Immunizations SOCIAL HISTORY Never Assessed REASON FOR VISIT Adderall 01/04/18 PLAN OF CARE VITAL SIGNS MEDICATIONS Medication Instructions Dosage Frequency Start Date End Date Duration S samantha Adderall XR 20 mg Orally Once a day for depression 1 capsule in the morning Dec, 28 days Active RESULTS No Results [...]
--- OUTSIDE RECORDS SUMMARY | 2019-07-17 11:26 | XMS REPORT ---
Author Author Sujey WILLS Organization [facility] [place] Address [address] [place] [address] Care Team Providers Care Application Project Leader Name Role Phone [email or web address] Unavailable PROBLEMS Type Condition ICD9-CM Code UZH88-XW Code Onset Dates Condition S tatus SNOMED Code Problem Diabetes E11.9 Active 57503883 Problem GERD (gastroesophageal reflux disease) K21.9 Active 075829963 Problem Anxiety disorder, unspecified F41.9 Active 414828493 Problem Hypertension I10 Active 1569103 3 Problem Other bipolar disorder F31.89 Active 63310981 Problem Fibromyalgia M79.7 Active 9668145 7 Problem Panic disorder with agoraphobia F40.01 Active 69809366 Problem Chronic obstructive pulmonary disease, unspecified J44.9 Active 16508383 Problem Lumbago with sciatica, left side M54.42 Active 731861000 Problem Migraine without aura and without status migrain osus, not intractable G43.009 Active 731982584 Problem Lumbago with sciatica, right side M54.41 Active 343183130 Problem Fibrocystic disease of right breast N60.11 Active 47520106 Problem Other chronic pain G89.29 Active 8 2363572 Problem Fibrocystic disease of left breast N60.12 Active 99005278 Problem Irritable bowel syndrome with constipation K58.1 Active 616803988 Problem Arthritis M19.90 Active 1916345 Problem Abnormal mammogram of right breast R92.8 Active 688253141 Problem Daytime somnolence R40.0 Active 1 [id number] Problem Bipolar affective disorder, remission status unspecified F31.9 Active 32513275 Problem Chronic post-traumatic stress disorder (PTSD) F43. 12 Active 733556440 Problem Bipolar 1 disorder, depressed, moderate F31.32 Active 00357615 Problem Schizoaffective disorder, bipolar type F25.0 Active 83013300 Problem Irritable bowel syndrome with both constipation and diarrh ea K58.2 Active 27479847 Problem Slow transit constipation K59.01 Acti ve 17483095 Problem Essential tremor G25.0 Active 609 916880 Problem Acute non-recurrent maxillary sinusitis J01.00 Active 15641144 Problem Back pain M54.9 Active 206984263 Problem Bipolar 1 disorder, depressed, partial remission F 31.75 Active 65036933 Problem Attention deficit hyperactiv ity disorder (ADHD), predominantly inattentive type F90.0 Active 02474429 Problem Bipolar I disorder with depression F31.9 Active 38158629 Problem Panlobular emphysema J43.1 Active 1009049 Problem Akathisia G25.71 Active 923579592 Problem Mild persistent asthma without complication J45.30 Active 144154142 Problem Moderate persistent asthma without complication J4 5.40 Active 758480187 ALLERGIES Substance Reaction Event Type Date Status Penicillin V Potassium Unknown Drug Allergy Nov, Activ e Effexor anaphylaxis Drug Allergy Nov, Active Darvocet-N 50 Unknown Drug Allergy Nov, Active Cefdinir Swelling Drug Allergy Nov, Active Benadryl vomiting/swelling Drug Allergy Nov, Active ENCOUNTERS Encounter Location Date Diagnosis [facility] [place] [address] [facility] [id number] [address] [place] [phone] Mar, [facility] [place] [address] [place] [id number] [address] [place] [phone] Jan, [facility] [place] [address] [place] [id number] [address] [place] [phone] Jan, [facility] [place] [address] [place] [id number] [address] [place] [phone] Jan, [facility] [place] [address] [facility] [id number] [address] [place] [phone] Jan, Abnormal mammogram of right breast R92.8 [facility] [place] [address] [facility] [id number] [address] [place] [phone] Dec, Daytime somnolence R40.0 and Right otitis media with effusion H65.91 [facility] [place] [address] [facility] [id number] [address] [place] [phone] Dec, [facility] [place] [address] [id number] [address] [place] [phone] Dec, Cerebrovascular accident (CV A) due to occlusion of right cerebellar artery I63.541 [facility] [place] [address] [id number] [address] [place] [phone] Dec, [facility] [place] [address] [id number] [address] [place] [phone] Dec, [facility] [place] [address] [id number] [address] [place] [phone] Nov, Bipolar 1 disorder, depresse d, partial remission F31.75 and Panic disorder with agoraphobia F40.01 [facility] [place] [address] [id number] [address] [place] [phone] Nov, Panlobular emphysema J43.1 [facility] [place] [address] [id number] [address] [place] [phone] Nov, Cerebrovascular accident (CV A) due to occlusion of right cerebellar artery I63.541 and Acute non-recurrent maxillary sinusitis J01.00 [facility] [place] [address] [id number] [address] [place] [phone] Nov, Panlobular emphysema J43.1 [facility] [place] [address] [id number] [address] [place] [phone] Nov, [facility] [place] [address] [id number] [address] [place] [phone] Nov, [facility] [place] [address] [id number] [address] [place] [phone] Nov, [facility] [place] [address] [id number] [address] [place] [phone] Nov, [facility] [place] [address] [id number] [address] [place] [phone] Nov, [facility] [place] [address] [id number] [address] [place] [phone] Nov, [facility] [place] [address] [id number] [address] [place] [phone] Nov, [facility] [place] [address] [facility] [id number] [address] [place] [phone] Nov, Mild persistent asthma witho ut complication J45.30 and Irritable bowel syndrome with both constipation and diarrhea K58.2 [facility] [place] [address] [id number] [address] [place] [phone] Nov, [facility] [place] [address] [id number] [address] [place] [phone] Oct, [facility] [place] [address] [id number] [address] [place] [phone] Oct, [facility] [place] [address] [facility] [id number] [address] [place] [phone] Oct, Type 2 diabetes mellitus wit h diabetic neuropathy, unspecified whether terminal supervisor insulin use E11.40 ; Diabetes E11.9 ; Slow transit constipation K59.01 ; Edema of both legs R60.0 and Dysfunction of right eustachian tube H69.81 [facility] [place] [address] [id number] [address] [place] [phone] Oct, Frequent headaches R51 [facility] [place] [address] [facility] [id number] [address] [place] [phone] Oct, [facility] [place] [address] [id number] [address] [place] [phone] Oct, [facility] [place] [address] [id number] [address] [place] [phone] Oct, [facility] [place] [address] [facility] [id number] [address] [place] [phone] Oct, [facility] [place] [address] [id number] [address] [place] [phone] 15 Oct, 2017 [facility] [place] [address] [facility] [id number] [address] [place] [phone] Oct, [facility] [place] [address] [facility] [id number] [address] [place] [phone] Oct, [facility] [place] [address] [facility] [id number] [address] [place] [phone] Oct, [facility] [place] [address] [place] [id number] [address] [place] [phone] September, Frequent headaches R51 [facility] [place] [address] [facility] [id number] [address] [place] [phone] September, Bilateral otitis media with effusion H65.93 ; Dizziness R42 and Essential tremor G25.0 [facility] [place] [address] [facility] [id number] [address] [place] [phone] September, Chronic obstructive pulmonar y disease, unspecified COPD type J44.9 [facility] [place] [address] [place] [id number] [address] [place] [phone] September, Chronic obstructive pulmonar y disease, unspecified COPD type J44.9 [facility] [place] [address] [facility] [id number] [address] [place] [id number] September, Migraine without aura and wi thout status migrainosus, not intractable G43.009 [facility] [place] [address] [facility] [id number] [address] [place] [phone] September, [facility] [place] [address] [place] [id number] [address] [place] [phone] September, [facility] [place] [address] [facility] [id number] [address] [place] [phone] September, [facility] [place] [address] [facility] [id number] [address] [place] [phone] September, Frequent headaches R51 [facility] [place] [address] [facility] [id number] [address] [place] [phone] Aug, [facility] [place] [address] [facility] [id number] [address] [place] [phone] Aug, Breast mass, right N63.10 [facility] [place] [address] [id number] [address] [place] [phone] Aug, Breast lump N63.0 [facility] [place] [address] [id number] [address] [place] [phone] Aug, [facility] [place] [address] [facility] [id number] [address] [place] [phone] Aug, Bipolar affective disorder, remission status unspecified F31.9 and Diabetes E11.9 [facility] [place] [address] [facility] [id number] [address] [place] [phone] Aug, Diabetes E11.9 ; Schizoaffec tive disorder, bipolar type F25.0 ; Pharyngitis due to other organism J02.8 ; Panlobular emphysema J43.1 and Irritable bowel syndrome with both constipation and diarrhea K58.2 [facility] [place] [address] [facility] [id number] [address] [place] [phone] Aug, Abnormal mammogram R92.8 [facility] [place] [address] [facility] [id number] [address] [place] [phone] Aug, [facility] [place] [address] [facility] [id number] [address] [place] [phone] Aug, Bipolar 1 disorder, depresse d, moderate F31.32 ; Panic disorder with agoraphobia F40.01 and Chronic post-traumatic stress disorder (PTSD) F43.12 [facility] [place] [address] [facility] [id number] [address] [place] [phone] Aug, [facility] [place] [address] [facility] [id number] [address] [place] [phone] Aug, [facility] [place] [address] [facility] [id number] [address] [place] [phone] Aug, [facility] [place] [address] [facility] [id number] [address] [place] [phone] Jul, [facility] [place] [address] [id number] [address] [place] [id number] 20 Jul, 2017 Mild persistent asthma witho ut complication J45.30 [facility] [place] [address] [facility] [id number] [address] [place] [phone] 19 Jul, 2017 Mild persistent asthma witho ut complication J45.30 [facility] [place] [address] [facility] [id number] [address] [place] [phone] 15 Jul, 2017 Bipolar affective disorder, remission status unspecified F31.9 ; Diabetes E11.9 and Irritable bowel syndrome with constipation K58.1 [facility] [place] [address] [id number] [address] [place] [phone] 13 Jul, 2017 [place] [address] [facility] [id number] [address] [place] [phone] Jul, [place] [address] [facility] [id number] [address] [place] [phone] Jul, Frequent headaches R51 [place] [address] [facility] [id number] [address] [place] [phone] Jul, [facility] [place] [address] [id number] [address] [place] [phone] Jul, [facility] [place] [address] [id number] [address] [place] [phone] Jul, [facility] [place] [address] [id number] [address] [place] [phone] Jul, Frequent headaches R51 ; Fib rocystic disease of left breast N60.12 ; Fibrocystic disease of right breast N60.11 and Diabetes E11.9 [facility] [place] [address] [id number] [address] [place] [phone] Jul, [facility] [place] [address] [facility] [id number] [address] [place] [phone] Jul, [facility] [place] [address] [facility] [id number] [address] [place] [phone] Jun, Exudative tonsillitis J03.90 [facility] [place] [address] [facility] [id number] [address] [place] [id number] 20 Jun, 2017 [facility] [place] [address] [facility] [id number] [address] [place] [phone] 19 Jun, 2017 [facility] [place] [address] [facility] [id number] [address] [place] [id number] 15 Jun, 2017 Mild persistent asthma witho ut complication J45.30 ; Chronic obstructive pulmonary disease, unspecified COPD type J44.9 and Exudative tonsillitis J03.90 [facility] [place] [address] [facility] [id number] [address] [place] [phone] 13 Jun, 2017 Encounter for immunization Z 23 [facility] [place] [address] [facility] [id number] [address] [place] [phone] 12 Jun, 2017 [facility] [place] [address] [facility] [id number] [address] [place] [phone] 12 Jun, 2017 [facility] [place] [address] [facility] [id number] [address] [place] [phone] 09 Jun, 2017 [facility] [address] [facility] [id number] [address] [place] [id number] 06 Jun, 2017 Tonsillitis J03.90 [facility] [place] [address] [facility] [id number] [address] [place] [phone] 05 Jun, 2017 [facility] [place] [address] [facility] [id number] [address] [place] [phone] 03 Jun, 2017 Acute non-recurrent maxillar y sinusitis J01.00 [facility] [place] [address] [facility] [id number] [address] [place] [phone] Jun, [facility] [place] [address] [facility] [id number] [address] [place] [phone] May, [facility] [place] [address] [facility] [id number] [address] [place] [phone] May, [facility] [place] [id number] [place] [id number] May, GERD (gastroesophageal reflu x disease) K21.9 [facility] [place] [address] [phone] May, Migraine without aura and wi thout status migrainosus, not intractable G43.009 [place] [address] [id number] May, [facility] [place] [address] [phone] May, [place] [address] [phone] May, Panlobular emphysema J43.1 a nd Acute non-recurrent maxillary sinusitis J01.00 [place] [address] [phone] May, Bipolar 1 disorder, depresse d, moderate F31.32 ; Panic disorder with agoraphobia F40.01 and Akathisia G25.71 [place] [address] [address] Apr, [facility] [place] [address] [id number] Apr, [place] [address] [phone] Apr, Acute non-recurrent maxillar y sinusitis J01.00 [facility] [place] [address] [place] [id number] [address] [place] [id number] Apr, Panlobular emphysema J43.1 [place] [address] [place] [id number] [place] [phone] 04 Apr, 2017 [facility] [address] [place] [id number] [address] [place] [phone] Apr, Exudative tonsillitis J03.90 and Sore throat J02.9 [facility] [place] [address] [facility] [id number] [address] [place] [id number] 17 Mar, 2017 [facility] [place] [address] [facility] [id number] [address] [place] [id number] 15 Mar, 2017 Acute non-recurrent maxillar y sinusitis J01.00 [facility] [place] [address] [facility] [id number] [address] [place] [phone] Mar, [facility] [place] [address] [facility] [id number] [address] [place] [phone] 09 Mar, 2017 Panlobular emphysema J43.1 a nd Diabetes E11.9 [place] [address] [address] [facility] [id number] [address] [place] [phone] 06 Mar, 2017 [facility] [address] [facility] [id number] [address] [place] [phone] 24 Feb, 2017 Wheezing R06.2 and Acute rec urrent pansinusitis J01.41 [place] [address] [address] [facility] [id number] [address] [place] [phone] Feb, [place] [address] [address] [facility] [id number] [address] [place] [phone] Feb, Acute non-recurrent maxillar y sinusitis J01.00 [place] [address] [address] [place] [id number] [address] [place] [phone] Feb, Chronic obstructive pulmonar y disease, unspecified J44.9 [facility] [place] [address] [facility] [id number] [address] [place] [phone] Feb, Hypoxemia R09.02 and Chronic obstructive pulmonary disease, unspecified J44.9 [facility] [place] [address] [facility] [id number] [address] [place] [phone] Jan, Bipolar 1 disorder, depresse d, moderate F31.32 ; Panic disorder with agoraphobia F40.01 ; Chronic post-traumatic stress disorder (PTSD) F43.12 ; Diabetes E11.9 and Moderate persistent asthma without complication J45.40 [facility] [place] [address] [id number] [address] [place] [phone] 22 Jan, 2017 [facility] [place] [address] [id number] [address] [place] [phone] 19 Jan, 2017 Acute non-recurrent maxillar y sinusitis J01.00 [facility] [place] [address] [id number] [address] [place] [phone] 18 Jan, 2017 [facility] [place] [address] [id number] [address] [place] [id number] 18 Jan, 2017 [facility] [place] [address] [id number] [address] [place] [id number] 12 Jan, 2017 [facility]40 and Hypoxemia R09.02 [facility] [place] [address] [id number] [address] [place] [phone] Jan, [facility] J[facility].40 and Hypoxemia R09.02 [facility] [place] [address] [id number] [address] [place] [phone] Jan, [facility] [place] [address] [id number] [address] [place] [phone] Dec, Acute non-recurrent maxillar y sinusitis J01.00 [facility] [place] [address] [id number] [address] [place] [phone] Dec, Chronic obstructive pulmonar y disease, unspecified J44.9 [facility] [place] [address] [id number] [address] [place] [id number] Dec, [facility] [place] [address] [id number] [address] [place] [id number] Dec, Mild persistent asthma witho ut complication J45.30 and Other chronic pain G89.29 [facility] [place] [address] [id number] [address] [place] [phone] Nov, [facility] [place] [address] [id number] [address] [place] [phone] Nov, Acute non-recurrent maxillar y sinusitis J01.00 [facility] [place] [address] [id number] [address] [place] [phone] Nov, [facility] [place] [address] [id number] [address] [place] [phone] Nov, [facility] [place] [address] [id number] [address] [place] [phone] Oct, [facility] [place] [address] [id number] [address] [place] [phone] Oct, Bipolar 1 disorder, depresse d, partial remission F31.75 ; Panic disorder with agoraphobia F40.01 and Chronic post-traumatic stress disorder (PTSD) F43.12 [facility] [place] [address] [id number] [address] [place] [phone] Oct, Acute non-recurrent maxillar y sinusitis J01.00 [facility] [place] [address] [id number] [address] [place] [id number] Oct, [facility] [place] [address] [id number] [address] [place] [phone] Oct, Diabetes E11.9 [facility] [place] [address] [id number] [address] [place] [phone] September, Diabetes E11.9 [facility] [place] [address] [id number] [address] [place] [phone] September, Diabetes E11.9 and Sinus tac hycardia R00.0 [facility] [place] [address] [id number] [address] [place] [id number] September, [facility] [place] [address] [id number] [address] [place] [phone] September, [facility] [place] [address] [id number] [address] [place] [phone] Aug, Diabetes E11.9 and Lumbago w ith sciatica, right side M54.41 [facility] [place] [address] [facility] [id number] [address] [place] [phone] Aug, [facility] [place] [address] [place] [id number] [address] [place] [id number] Jul, Bipolar 1 disorder, depresse d, moderate F31.32 ; Panic disorder with agoraphobia F40.01 and Chronic post-traumatic stress disorder (PTSD) F43.12 [facility] [place] [address] [facility] [id number] [address] [place] [phone] Jul, Sore throat J02.9 [facility] [place] [address] [facility] [id number] [address] [place] [phone] Jul, [facility] [place] [address] [id number] [address] [place] [phone] Jul, [facility] [place] [address] [place] [id number] [address] [place] [phone] Jul, [facility] [place] [address] [place] [id number] [address] [place] [phone] Jul, [facility] [place] [address] [place] [place] [id number] [address] [place] [phone] Jul, Sore throat J02.9 and Pharyn gitis, unspecified etiology J02.9 [facility] [place] [address] [place] [id number] [address] [place] [phone] Jun, [facility] [place] [address] [place] [id number] [address] [place] [phone] Jun, Diabetes E11.9 [facility] [place] [address] [facility] [id number] [address] [place] [phone] Jun, [facility] [place] [address] [place] [place] [id number] [address] [place] [phone] Jun, [facility] [place] [address] [id number] [address] [place] [phone] Jun, [facility] [place] [address] [id number] [address] [place] [phone] Jun, [facility] [place] [address] [id number] [address] [place] [phone] Jun, [facility] [place] [address] [id number] [address] [place] [phone] Jun, [facility] [place] [address] [facility] [id number] [address] [place] [phone] Jun, [facility] [place] [address] [id number] [address] [place] [phone] Jun, [facility] [place] [address] [facility] [id number] [address] [place] [phone] May, Diabetes E11.9 ; Other chron ic pain G89.29 ; Acute recurrent maxillary sinusitis J01.01 ; Bipolar I disorder with depression F31.9 and Anxiety disorder, unspecified F41.9 [facility] [place] [address] [facility] [id number] [address] [place] [phone] May, [facility] [place] [address] [id number] [address] [place] [phone] May, Diabetes E11.9 ; Bipolar I d isorder with depression F31.9 ; Anxiety disorder, unspecified F41.9 ; Other chronic pain G89.29 and Acute recurrent maxillary sinusitis J01.01 [facility] [place] [address] [facility] [id number] [address] [place] [phone] May, [facility] [place] [address] [id number] [address] [place] [phone] May, Attention deficit hyperactiv ity disorder (ADHD), predominantly inattentive type F90.0 [facility] [place] [address] [facility] [id number] [address] [place] [phone] May, [facility] [place] [address] [facility] [id number] [address] [place] [phone] Apr, Attention deficit hyperactiv ity disorder (ADHD), predominantly inattentive type F90.0 and Non-seasonal allergic rhinitis due to other allergic trigger J30.89 [place] [address] [id number] [address] [place] [phone] Apr, Bipolar 1 disorder, depresse d, moderate F31.32 ; Panic disorder with agoraphobia F40.01 and Chronic post-traumatic stress disorder (PTSD) F43.12 [place] [address] [id number] [address] [place] [phone] Apr, Dental examination Z01.20 [place] [address] [id number] [address] [place] [phone] Mar, [place] [address] [id number] [address] [place] [phone] Mar, [place] [address] [facility] [id number] [address] [place] [phone] Mar, Bipolar I disorder with depr ession F31.9 and Anxiety disorder, unspecified F41.9 [place] [address] [id number] [address] [place] [id number] 08 Mar, 2016 Panic disorder with agorapho syd F40.01 ; Bipolar 1 disorder, depressed, moderate F31.32 and Chronic post-traumatic stress disorder (PTSD) F43.12 [place] [address] [id number] [address] [place] [phone] Mar, [place] [address] [id number] [address] [place] [phone] Mar, Dental caries K02.9 [place] [address] [id number] [address] [place] [phone] Feb, Lumbago with sciatica, left side M54.42 ; Lumbago with sciatica, right side M54.41 and Other chronic pain G89.29 [place] [address] [facility] [id number] [address] [place] [phone] Feb, [place] [address] [facility] [id number] [address] [place] [phone] 14 Feb, 2016 [facility] [place] [address] [facility] [id number] [address] [place] [id number] 13 Feb, 2016 Bipolar I disorder with depr ession F31.9 ; PTSD (post-traumatic stress disorder) F43.10 and Mood disorder F39 [facility] [place] [address] [facility] [id number] [address] [place] [phone] 13 Feb, 2016 [facility] [place] [address] [place] [id number] [place] [phone] 11 Feb, 2016 Dental examination Z01.20 [facility] [place] [address] [phone] 07 Feb, 2016 [facility] [address] [place] [id number] [address] [place] [phone] 03 Feb, 2016 Acute bronchitis, unspecifie d organism J20.9 [facility] [place] [address] [place] [id number] [address] [place] [phone] 26 Jan, 2016 Mood disorder F39 ; Migraine without aura and without status migrainosus, not intractable G43.009 ; Irritable bowel syndrome, unspecified type K58.9 ; Diabetes E11.9 and Encounter for immunization Z23 [facility] [place] [address] [place] [place] [id number] [address] [place] [id number] 15 Jan, 2016 [facility] [place] [address] [place] [place] [id number] [address] [place] [phone] Jan, [facility] [place] [address] [facility] [id number] [address] [place] [phone] Jan, [facility] [place] [address] [place] [id number] [address] [place] [phone] Jan, [facility] [place] [address] [facility] [id number] [address] [place] [phone] Jan, [facility] [place] [address] [place] [place] [id number] [address] [place] [id number] Dec, Bipolar I disorder with depr ession F31.9 ; PTSD (post-traumatic stress disorder) F43.10 and Panic disorder with agoraphobia F40.01 [facility] [place] [address] [id number] [address] [place] [phone] Dec, Chronic obstructive pulmonar y disease, unspecified COPD type J44.9 ; Tremor R25.1 and Anxiety F41.9 [facility] [place] [address] [id number] [address] [place] [phone] Dec, [facility] [place] [address] [id number] [address] [place] [phone] Nov, Tremors of nervous system R2 5.1 and Cramping of feet R25.2 [facility] [place] [address] [facility] [id number] [address] [place] [phone] Nov, [facility] [place] [address] [place] [id number] [address] [place] [phone] Nov, [facility] [place] [address] [id number] [address] [place] [phone] Oct, Chronic obstructive pulmonar y disease, unspecified J44.9 [facility] [place] [address] [facility] [id number] [address] [place] [phone] Oct, [facility] [place] [address] [facility] [id number] [address] [place] [phone] Oct, Tremor R25.1 [facility] [place] [address] [facility] [id number] [address] [place] [phone] Oct, Bipolar I disorder with depr ession F31.9 ; Diabetes E11.9 ; PTSD (post-traumatic stress disorder) F43.10 and Panic disorder with agoraphobia F40.01 [facility] [place] [address] [facility] [id number] [address] [place] [phone] Oct, Mood disorder F39 [facility] [place] [address] [facility] [id number] [address] [place] [phone] September, [facility] [place] [address] [facility] [id number] [address] [place] [phone] September, Diabetes E11.9 ; Bipolar I d isorder with depression F31.9 ; PTSD (post-traumatic stress disorder) F43.10 and Panic disorder with agoraphobia F40.01 [facility] [place] [address] [facility] [id number] [address] [place] [phone] September, Mood disorder F39 ; Schizoaf fective disorder, unspecified type F25.9 ; Arthritis M19.90 ; Tremor R25.1 ; Acute non-recurrent frontal sinusitis J01.10 and Blood in stool K92.1 [place] [address] [facility] [id number] [address] [place] [phone] September, [place] [address] [place] [id number] [address] [place] [phone] September, Chronic obstructive pulmonar y disease, unspecified J44.9 [place] [address] [facility] [id number] [address] [place] [phone] September, Diabetes E11.9 [place] [address] [facility] [id number] [address] [place] [phone] Aug, Other bipolar disorder F31.8 9 and Anxiety disorder, unspecified F41.9 [place] [address] [facility] [id number] [address] [place] [phone] Aug, [place] [address] [facility] [id number] [address] [place] [phone] Aug, Diabetes E11.9 [facility] [place] [address] [facility] [id number] [address] [place] [phone] Aug, [place] [address] [facility] [id number] [address] [place] [phone] Aug, Diabetes E11.9 ; Fatigue R53 .83 and Dizziness R42 [place] [address] [facility] [id number] [address] [place] [phone] Aug, Other bipolar disorder F31.8 9 [facility] [place] [address] [id number] [address] [place] [id number] 07 Aug, 2015 Generalized anxiety disorder F41.1 [facility] [place] [address] [id number] [address] [place] [phone] 07 Aug, 2015 Other bipolar disorder F31.8 9 and Anxiety disorder, unspecified F41.9 [facility] [place] [address] [id number] [address] [place] [phone] Aug, [facility] [place] [address] [id number] [address] [place] [phone] Jul, [facility] [place] [address] [id number] [address] [place] [phone] Jul, [facility] [place] [address] [id number] [address] [place] [phone] Jul, Bronchitis J40 [facility] [place] [address] [id number] [address] [place] [phone] Jul, Anxiety disorder F41.9 [facility] [place] [address] [id number] [address] [place] [phone] Jul, Other bipolar disorder F31.8 9 and Anxiety disorder, unspecified F41.9 [facility] [place] [address] [id number] [address] [place] [phone] Jul, Other bipolar disorder F31.8 9 and Fibromyalgia M79.7 [facility] [place] [address] [id number] [address] [place] [phone] Jul, [facility] [place] [address] [id number] [address] [place] [phone] Jul, [facility] [place] [address] [id number] [address] [place] [phone] Jul, [facility] [place] [address] [id number] [address] [place] [phone] Jul, Other bipolar disorder F31.8 9 and Anxiety disorder, unspecified F41.9 [facility] [place] [address] [facility] [id number] [address] [place] [phone] Jun, GERD (gastroesophageal reflu x disease) K21.9 [facility] [place] [address] [facility] [id number] [address] [place] [phone] Jun, [facility] [place] [address] [place] [id number] [place] [phone] May, [facility] [place] [address] [place] [id number] [place] [phone] May, Diabetes E11.9 ; Back pain M 54.9 ; GERD (gastroesophageal reflux disease) K21.9 ; Hypertension I10 and Peripheral neuropathy G62.9 [facility] [place] [address] [place] [id number] [address] [place] [phone] Mar, [facility] [place] [address] [phone] Mar, [facility] [place] [address] [phone] Mar, Acute sinusitis J01.90 and O titis media, left H66.92 [facility] [place] [address] [place] [id number] [address] [place] [id number] Feb, [facility], [place] [id number] [place] [phone] Feb, [facility] [place] [id number] [place] [phone] 15 Feb, 2015 [facility] [place] [id number] [place] [phone] Feb, [facility], [place] [id number] [place] [id number] 29 Jan, 2015 [facility] [place] [id number] [place] [phone] 24 Jan, 2015 Diabetes 250.00 and Back higinio n 724.5 [facility] [place] [id number] [place] [phone] Jan, [facility] [place] [id number] [place] [id number] Dec, Diabetes 250.00 ; Benign ess ential hypertension 401.1 and Allergic rhinitis 477.9 [facility] [place] [id number] [place] [phone] Dec, [facility] [place] [id number] [place] [phone] Dec, [facility] [place] [id number] [place] [phone] Dec, Psychosis 298.9 [facility], [place] [id number] [place] [phone] Dec, Medication side effect 995.2 0 and Generalized anxiety disorder 300.02 [facility], [place], [facility] [id number] [place] [phone] Dec, Acquired cognitive dysfuncti on 294.9 [facility] [place] [id number] [place] [phone] Dec, [facility] [place] [id number] [place] [phone] Dec, Unspecified myalgia and myos itis 729.1 and Generalized anxiety disorder 300.02 [facility] [place] [id number] [place] [id number] Nov, [facility] [facility], [place] [address] [id number] [address] [place] [phone] Nov, [facility] [place] [address] [id number] [address] [place] [phone] Nov, [facility] [place] [address] [id number] [address] [place] [phone] Nov, Upper respiratory infection 465.9 and Chronic airway obstruction, not elsewhere classified 496 [facility] [place] [address] [id number] [address] [place] [phone] Nov, Hyponatremia 276.1 [facility] [place] [address] [id number] [address] [place] [phone] 29 Oct, 2014 [facility] [place] [address] [facility] [id number] [address] [place] [phone] Oct, [facility] [place] [address] [id number] [address] [place] [phone] Oct, [facility] [place] [address] [id number] [address] [place] [phone] Oct, [facility] [place] [address] [id number] [address] [place] [phone] Oct, Hyponatremia 276.1 [facility] [place] [address] [id number] [address] [place] [phone] Oct, [facility] [place] [address] [id number] [address] [place] [phone] Oct, [facility] [place] [address] [id number] [address] [place] [phone] Oct, Generalized anxiety disorder 300.02 [facility] [place] [address] [facility] [id number] [address] [place] [phone] Oct, Generalized anxiety disorder 300.02 and Diabetes 250.00 [facility] [place] [address] [id number] [address] [place] [phone] Aug, [facility] [place] [address] [id number] [address] [place] [phone] Aug, [facility] [place] [address] [facility] [id number] [address] [place] [phone] Jul, [facility] [place] [address] [id number] [address] [place] [phone] Jul, [facility] [place] [address] [facility] [id number] [address] [place] [phone] Jun, [facility] [address] [id number] [address] [place] [address], [place] [address] Jun, [facility] [address] [id number] [address] [place] [address], [place] [address] Jun, [facility] [address] [id number] [address] [place] [address], [place] [address] Jun, [facility] [address] [id number] [address] [place] [address], [place] [address] Jun, [facility] [address] [id number] [address] [place] [address], [place] [address] May, [facility] [address] [id number] [address] [place] [address], [place] [address] May, [facility] [address] [id number] [address] [place] [address], [place] [address] Apr, [facility] [address] [id number] [address] [place] [address], [place] [address] Apr, [facility] [address] [id number] [address] [place] [address], [place] [address] Apr, [facility] [address] [id number] [address] [place] [address], [place] [address] Apr, [facility] [address] [id number] [address] [place] [address], [place] [address] Apr, [facility] [address] [id number] [address] [place] [address], [place] [address] Apr, [facility] [address] [id number] [address] [place] [address], [place] [address] Apr, [facility] [address] [id number] [address] [place] [address], [place] [address] 02 Apr, 2013 [facility] [address] [id number] [address] [place] [address], [place] [address] Feb, [facility] [address] [id number] [address] [place] [address], [place] [address] Feb, [facility] [address] [id number] [address] [place] [address], [place] [address] Jan, [facility] [address] [id number] [address] [place] [address], [place] [address] Jan, [facility] [address] [id number] [address] [place] [address], [place] [address] Dec, [facility] [address] [id number] [address] [place] [address], [place] [address] Dec, [facility] [address] [id number] [address] [place] [address], [place] [address] Dec, [facility] [address] [id number] [address] [place] [address], [place] [address] Nov, [facility] [address] [id number] [address] [place] [address], [place] [address] Nov, [facility] [address] [id number] [address] [place] [address], [place] [address] Nov, [facility] [address] [id number] [address] [place] [address], [place] [address] Oct, [facility] [address] [id number] [address] [place] [address], [place] [address] Oct, [facility] [address] [id number] [address] [place] [address], [place] [address] Oct, [facility] [address] [id number] [address] [place] [address], [place] [address] September, [facility] [address] [id number] [address] [place] [address], [place] [address] September, [facility] [address] [id number] [address] [place] [address], [place] [address] September, [facility] [address] [id number] [address] [place] [address], [place] [address] 25 Aug, 2011 [facility] [address] [id number] [address] [place] [address], [place] [address] 20 Aug, 2011 [facility] [address] [id number] [address] [place] [address], [place] [address] 19 Aug, 2011 [facility] [address] [id number] [address] [place] [address], [place] [address] 16 Aug, 2011 [facility] [address] [id number] [address] [place] [address], [place] [address] Jul, [facility] [address] [id number] [address] [place] [address], [place] [address] Jun, [facility] [address] [id number] [address] [place] [address], [place] [address] 14 Jun, 2011 [facility] [address] [id number] [address] [place] [address], [place] [address] 13 Jun, 2011 [facility] [address] [id number] [address] [place] [address], [place] [address] 07 Jun, 2011 [facility] [address] [id number] [address] [place] [address], [place] [address] 03 Jun, 2011 [facility] [address] [id number] [address] [place] [address], [place] [address] May, [facility] [address] [id number] [address] [place] [address], [place] [address] May, [facility] [address] [id number] [address] [place] [address], [place] [address] 09 May, 2011 [facility] [address] [id number] [address] [place] [address], [place] [address] May, [facility] [address] [id number] [address] [place] [address], [place] [address] Apr, [facility] [address] [id number] [address] [place] [address], [place] [address] Apr, [facility] [address] [id number] [address] [place] [address], [place] [address] 05 Apr, 2011 [facility] [address] [id number] [address] [place] [address], [place] [address] Mar, [facility] [address] [id number] [address] [place] [address], [place] [address] Mar, [facility] [address] [id number] [address] [place] [address], [place] [address] Mar, [facility] [address] [id number] [address] [place] [address], [place] [address] Feb, [facility] [address] [id number] [address] [place] [address], [place] [address] Feb, [facility] [address] [id number] [address] [place] [address], [place] [address] Feb, [facility] [address] [id number] [address] [place] [address], [place] [address] Nov, [facility] [address] [id number] [address] [place] [address], [place] [address] September, [facility] [address] [id number] [address] [place] [address], [place] [address] Aug, [facility] [address] [id number] [address] [place] [address], [place] [address] Jul, [facility] [address] [id number] [address] [place] [address], [place] [address] May, [facility] [address] [id number] [address] [place] [address], [place] [address] Apr, [facility] [address] [id number] [address] [place] [address], [place] [address] 30 Apr, 2010 [facility] [address] [id number] [address] [place] [address], [place] [address] 13 Apr, 2010 [facility] [address] [id number] [address] [place] [address], [place] [address] Apr, [facility] [address] [facility] [id number] [address] [place] [address] Apr, IMMUNIZATIONS No Known Immunizations SOCIAL HISTORY Never Assessed REASON FOR VISIT f/u Brit PLAN OF CARE Activity Details Follow Up 3 Months Reason: VITAL SIGNS Height 66 in 2017-12-07 Weight 100.6 lbs 2017-12-07 Heart Rate 92 bpm 2017-12-07 Respiratory Rate 20 2017-12-07 BMI 16.24 kg/m2 2017-12-07 Blood pressure systolic 120 mmHg 2017-12-07 Blood pressure diastolic 74 mmHg 2017-12-07 MEDICATIONS Medication Instructions Dosage Frequency Start Date End Date Duration S tatus Metformin HCl 1000 MG Orally Twice a day 1 tablet with meals 12h Aug, 30 day(s) Active Nicoderm CQ 21 MG/24HR Transdermal Once a day x42 days 1 patch to skin Not-Taking Gaviscon 80-14.2 MG Orally 4 times a day 4 tablet 6h Not-Taking Ondansetron 4 MG Orally every 8 hrs PRN 1 tablet on the t ongue and allow to dissolve Apr, 30 days Active Levemir FlexTouch 100 UNIT/ML Subcutaneous Once a day 7 units 24h September, 30 days Active Atorvastatin Calcium 10 MG Orally Once a day 1 tablet 24h Active Sudafed 30 MG Orally every 6 hrs 1 tablet as needed 6h September, Not-Taking Ventolin HFA 108 (90 Base) MCG/ACT Inhalation every 4 hrs 2 puffs a s needed 4h Dec, Active Flonase 50 mcg/act 1 spray in each nostril 12h Apr, Active Hydrochlorothiazide 12.5 MG Orally Once a day 1 tablet in the morni ng 24h Oct, 30 day(s) Not-Taking Amitiza 8 MCG Orally Twice a day 1 capsule with food 12h Nov, 30 day(s) Active MiraLax - Orally 3 times a day until you have a BM then Reduce to once daily. 17 grams mixed with 8 oz of fluid 30 days Active Gabapentin 800 MG Orally Three times a day 1 tablet 8h Jul, Active Anoro Ellipta 62.5-25 MCG/INH Inhalation Once a day 1 puff 24h Oct, 30 days Active Diclofenac Sodium 1 % Transdermal Four times a day 2-4- grams to affected areas 6h 12 Feb, 2018 30 days Active BusPIRone HCl 15 mg Orally 3 times a day for anxiety 1 tablet Jan, Active Glucosamine 1000 MG Orally Once a day 2 capsules 24h Not-Taking Trazodone HCl 100 mg Orally for sleep 1 tablet at bedtime Jan Active Amlodipine Besylate 5 MG Orally Once a day 1 tablet 24h Active Foxyaohyks-ZTHL-Hcwzpuvl 50-325-40 MG Orally 3 times a day 1 cap yg as needed 8h Jun, Not-Taking Clonidine HCl 0.1 MG 1 tablet 8h Ac tive Maljamar 7.5-325 MG Orally 3 times a day 1 tablet as needed 8h Nov, 28 days Active Dicyclomine HCl 20 mg Orally Four times a day 1 tablet 6h 2017 30 day(s) Active Lorazepam 2 MG Orally in the AM and noon and 4pm 1 tablet 2015 Active Adderall XR 20 mg Orally Once a day for depression 1 capsule in the morning Nov, 28 days Active Zithromax Z-Ricardo 250 MG Orally Once a day 2 tablets on the first day, then 1 tablet daily for 4 days 24h Nov, Nov, 5 day(s) Not- Taking Singulair 10 mg Orally Once a day 1 tablet in the evening 24h Oct, 30 day(s) Active Lamictal 100 mg Orally 2 times a day for depression 1 tablet September, Active Guaifenesin 400 mg Orally every 4 hrs 1 tablet 4h Not-Taking Loxapine Succinate 10 mg Orally twice a day for mood 1 capsule Active Multivitamin Adult - Act minoo Baclofen 20 MG Orally Three times a day 1 tablet with food or milk 8h 30 Active Insulin Pen Needle 32G X 6 MM as directed 24h Oct, Active Nicotine Polacrilex 4 MG Mouth/Throat 20 time(s) a day 1 lozenge as n eeded Not-Taking Ibuprofen 600 MG TAKE ONE TABLET BY MOUTH THREE TIMES DAILY 33 Not-Taking Cetirizine HCl 10 mg Orally Once a day 1 tablet 24h Apr, 30 day(s) Not-Taking Nexium 40 mg 1 capsule 24h Active Calcium 600 + D 600-200 MG-UNIT Active Benztropine Mesylate 0.5 MG Orally 3 times a day-Q AM, 4pm and bedtime for restlessness 1 tablet Mar, Active Aspir-81 81 MG Orally Once a day 1 tablet 24h Active Nebulizer 1 as directed Jul, Act minoo Topiramate 50 mg Orally Twice a day 1 tablet 12h Nov, 30 day(s) Active Lisinopril 40 MG Orally Once a day 1 tablet 24h Active Propranolol HCl 20 mg Orally Twice a day 1 tablet 12h September, 30 day(s) Not-Taking Metoprolol Tartrate 50 mg Orally Twice a day TAKE ONE TABLE T BY MOUTH TWICE DAILY WITH FOOD 12h Active Xopenex 1.25 MG/3ML Inhalation 4 times a day prn 3 ml Dec, 30 days Active Qvar 80 MCG/ACT Inhalation Twice a day 1 puff 12h Oct, 30 days Active RESULTS No Results PROCEDURES Procedure Date Ordered Result Body Site [facility] VISIT ESTABLISHED PATIENT December 07, 2017 INSTRUCTIONS MEDICATIONS ADMINISTERED No Known Medications [...]
--- OUTSIDE RECORDS SUMMARY | 2019-07-17 11:26 | XMS REPORT ---
Author Author Sujey GANDHI Organization [facility] Address [address] [place] [address] Care Team Providers Care City Administrator Name Role Phone WHIT GANDHI Unavailable PROBLEMS Type Condition ICD9-CM Code MBP39-PX Code Onset Dates Condition S tatus SNOMED Code Problem Diabetes E11.9 Active 96306542 Problem GERD (gastroesophageal reflux disease) K21.9 Active 453257492 Problem Anxiety disorder, unspecified F41.9 Active 143941248 Problem Hypertension I10 Active 5920243 3 Problem Other bipolar disorder F31.89 Active 32839538 Problem Fibromyalgia M79.7 Active 1143142 7 Problem Panic disorder with agoraphobia F40.01 Active 57100185 Problem Chronic obstructive pulmonary disease, unspecified J44.9 Active 30421642 Problem Lumbago with sciatica, left side M54.42 Active 724229799 Problem Migraine without aura and without status migrain osus, not intractable G43.009 Active 551829061 Problem Lumbago with sciatica, right side M54.41 Active 666135363 Problem Fibrocystic disease of right breast N60.11 Active 04889025 Problem Other chronic pain G89.29 Active 8 2554002 Problem Fibrocystic disease of left breast N60.12 Active 05244729 Problem Irritable bowel syndrome with constipation K58.1 Active 318727281 Problem Arthritis M19.90 Active 3924554 Problem Abnormal mammogram of right breast R92.8 Active 677646694 Problem Daytime somnolence R40.0 Active 1 [id number] Problem Bipolar affective disorder, remission status unspecified F31.9 Active 84193123 Problem Chronic post-traumatic stress disorder (PTSD) F43. 12 Active 592871985 Problem Bipolar 1 disorder, depressed, moderate F31.32 Active 63953401 Problem Schizoaffective disorder, bipolar type F25.0 Active 82694724 Problem Irritable bowel syndrome with both constipation and diarrh ea K58.2 Active 68263891 Problem Slow transit constipation K59.01 Acti ve 65916164 Problem Essential tremor G25.0 Active 609 428856 Problem Acute non-recurrent maxillary sinusitis J01.00 Active 11112230 Problem Back pain M54.9 Active 371554636 Problem Bipolar 1 disorder, depressed, partial remission F 31.75 Active 24922476 Problem Attention deficit hyperactiv ity disorder (ADHD), predominantly inattentive type F90.0 Active 36349354 Problem Bipolar I disorder with depression F31.9 Active 29111447 Problem Panlobular emphysema J43.1 Active 9437615 Problem Akathisia G25.71 Active 362259778 Problem Mild persistent asthma without complication J45.30 Active 774082873 Problem Moderate persistent asthma without complication J4 5.40 Active 154630152 ALLERGIES No Information ENCOUNTERS Encounter Location Date Diagnosis [place] [address] [place] [id number] [address] [place] [phone] Mar, [place] [address] [place] [id number] [address] [place] [address] Jan, [place] [address] [place] [id number] [address] [place] [id number] 13 Jan, 2018 Arthritis M19.90 [place] [address] [place] [id number] [address] [place] [id number] 07 Jan, 2018 [place] [address] [place] [id number] [address] [place] [phone] 04 Jan, 2018 Abnormal mammogram of right breast R92.8 [place] [address] [place] [id number] [address] [place] [address] Dec, Daytime somnolence R40.0 and Right otitis media with effusion H65.91 [place] [address] [place] [id number] [address] [place] [address] Dec, [place] [address] [place] [id number] [address] [place] [id number] Dec, Cerebrovascular accident (CV A) due to occlusion of right cerebellar artery I63.541 [place] [address] [place] [id number] [address] [place] [phone] Dec, [facility] [address] [id number] [address] [place] [phone] Dec, [facility] [address] [facility] [id number] [address] [place] [phone] Nov, Bipolar 1 disorder, depresse d, partial remission F31.75 and Panic disorder with agoraphobia F40.01 [facility] [address] [id number] [address] [place] [phone] Nov, Panlobular emphysema J43.1 [facility] [address] [id number] [address] [place] [phone] Nov, Cerebrovascular accident (CV A) due to occlusion of right cerebellar artery I63.541 and Acute non-recurrent maxillary sinusitis J01.00 [facility] [address] [facility] [id number] [address] [place] [phone] Nov, Panlobular emphysema J43.1 [facility] [address] [facility] [id number] [address] [place] [phone] Nov, [facility] [address] [facility] [id number] [address] [place] [phone] Nov, [facility] [address] [facility] [id number] [address] [place] [phone] Nov, [facility] [address] [facility] [id number] [address] [place] [phone] Nov, [facility] [address] [facility] [id number] [address] [place] [phone] Nov, [facility] [address] [facility] [id number] [address] [place] [phone] Nov, [facility] [address] [facility] [id number] [address] [place] [phone] Nov, [facility] [address] [facility] [id number] [address] [place] [address] Nov, Mild persistent asthma witho ut complication J45.30 and Irritable bowel syndrome with both constipation and diarrhea K58.2 [facility] [address] [facility] [id number] [address] [place] [phone] Nov, [facility] [address] [facility] [id number] [address] [place] [phone] Oct, [facility] [address] [facility] [id number] [address] [place] [phone] Oct, [facility] [address] [facility] [id number] [address] [place] [address] Oct, Type 2 diabetes mellitus wit h diabetic neuropathy, unspecified whether chcf insulin use E11.40 ; Diabetes E11.9 ; Slow transit constipation K59.01 ; Edema of both legs R60.0 and Dysfunction of right eustachian tube H69.81 [facility] [address] [facility] [id number] [address] [place] [phone] Oct, Frequent headaches R51 [facility] [address] [facility] [id number] [address] [place] [phone] Oct, [facility] [address] [facility] [id number] [address] [place] [phone] Oct, [facility] [address] [facility] [id number] [address] [place] [phone] Oct, [facility] [address] [facility] [id number] [address] [place] [phone] Oct, [facility] [address] [facility] [id number] [address] [place] [phone] Oct, [facility] [address] [facility] [id number] [address] [place] [phone] Oct, [facility] [address] [facility] [id number] [address] [place] [phone] Oct, [facility] [address] [facility] [id number] [address] [place] [phone] Oct, [facility] [address] [facility] [id number] [address] [place] [phone] September, Frequent headaches R51 [facility] [address] [facility] [id number] [address] [place] [phone] September, Bilateral otitis media with effusion H65.93 ; Dizziness R42 and Essential tremor G25.0 [facility] [address] [facility] [id number] [address] [place] [address] September, Chronic obstructive pulmonar y disease, unspecified COPD type J44.9 [facility] [address] [facility] [id number] [address] [place] [phone] September, Chronic obstructive pulmonar y disease, unspecified COPD type J44.9 [facility] [address] [facility] [id number] [address] [place] [phone] September, Migraine without aura and wi thout status migrainosus, not intractable G43.009 [facility] [address] [facility] [id number] [address] [place] [phone] September, [facility] [address] [facility] [id number] [address] [place] [id number] September, [facility] [address] [facility] [id number] [address] [place] [phone] September, [facility] [address] [facility] [id number] [address] [place] [phone] September, Frequent headaches R51 [facility] [address] [facility] [id number] [address] [place] [phone] Aug, [facility] [address] [facility] [id number] [address] [place] [address] Aug, Breast mass, right N63.10 [facility] [address] [facility] [id number] [address] [place] [address] Aug, Breast lump N63.0 [facility] [address] [id number] [address] [place] [phone] Aug, [place] [id number] [id number] [address] [place] [phone] Aug, Bipolar affective disorder, remission status unspecified F31.9 and Diabetes E11.9 [place] [address] [id number] [address] [place] [phone] Aug, Diabetes E11.9 ; Schizoaffec tive disorder, bipolar type F25.0 ; Pharyngitis due to other organism J02.8 ; Panlobular emphysema J43.1 and Irritable bowel syndrome with both constipation and diarrhea K58.2 [place] [address] [id number] [address] [place] [id number] Aug, Abnormal mammogram R92.8 [place] [address] [id number] [address] [place] [phone] Aug, [place] [address] [facility] [id number] [address] [place] [phone] Aug, Bipolar 1 disorder, depresse d, moderate F31.32 ; Panic disorder with agoraphobia F40.01 and Chronic post-traumatic stress disorder (PTSD) F43.12 [place] [address] [facility] [id number] [address] [place] [phone] Aug, [place] [address] [id number] [address] [place] [phone] Aug, [place] [address] [facility] [id number] [address] [place] [phone] Aug, [place] [address] [id number] [address] [place] [id number] Jul, [place] [address] [facility] [id number] [address] [place] [address] Jul, Mild persistent asthma witho ut complication J45.30 [place] [address] [facility] [id number] [address] [place] [address] Jul, Mild persistent asthma witho ut complication J45.30 [facility] [address] [id number] [address] [place] [id number] 15 Jul, 2017 Bipolar affective disorder, remission status unspecified F31.9 ; Diabetes E11.9 and Irritable bowel syndrome with constipation K58.1 [facility] [address] [facility] [id number] [address] [place] [id number] 13 Jul, 2017 [facility] [address] [id number] [address] [place] [phone] Jul, [facility] [address] [id number] [address] [place] [phone] 08 Jul, 2017 Frequent headaches R51 [place] [address] [facility] [id number] [address] [place] [phone] 07 Jul, 2017 [facility] [address] [facility] [id number] [address] [place] [phone] Jul, [facility] [address] [facility] [id number] [address] [place] [phone] Jul, [facility] [address] [id number] [address] [place] [address] Jul, Frequent headaches R51 ; Fib rocystic disease of left breast N60.12 ; Fibrocystic disease of right breast N60.11 and Diabetes E11.9 [facility] [address] [facility] [id number] [address] [place] [address] Jul, [facility] [address] [facility] [id number] [address] [place] [phone] Jul, [facility] [address] [facility] [id number] [address] [place] [phone] Jun, Exudative tonsillitis J03.90 [facility] [address] [facility] [id number] [address] [place] [phone] Jun, [place] [address] [place] [id number] [address] [place] [phone] Jun, [facility] [address] [place] [id number] [address] [place] [address] 15 Jun, 2017 Mild persistent asthma witho ut complication J45.30 ; Chronic obstructive pulmonary disease, unspecified COPD type J44.9 and Exudative tonsillitis J03.90 [facility] [address] [id number] 13 Jun, 2017 Encounter for immunization Z 23 [facility] [address] [facility] [id number] [place] [phone] 12 Jun, 2017 [facility] [address] [address] 12 Jun, 2017 [facility] [address] [address] 09 Jun, 2017 [facility] [place] [facility] [address] [address] 06 Jun, 2017 Tonsillitis J03.90 [facility] [address] [place] [id number] [address] [place] [address] 05 Jun, 2017 [facility] [address] [address] 03 Jun, 2017 Acute non-recurrent maxillar y sinusitis J01.00 [facility] [address] [address] 02 Jun, 2017 [facility] [address] [address] May, [facility] [address] [address] May, [facility] [address] [address] May, GERD (gastroesophageal reflu x disease) K21.9 [facility] [address] [address] May, Migraine without aura and wi thout status migrainosus, not intractable G43.009 [facility] [address] [id number] [address] [place] [phone] May, [facility] [address] [facility] [id number] [address] [place] [phone] May, [facility] [address] [facility] [id number] [address] [place] [address] May, Panlobular emphysema J43.1 a nd Acute non-recurrent maxillary sinusitis J01.00 [facility] [address] [facility] [id number] [address] [place] [address] May, Bipolar 1 disorder, depresse d, moderate F31.32 ; Panic disorder with agoraphobia F40.01 and Akathisia G25.71 [facility] [address] [facility] [id number] [address] [place] [phone] Apr, [facility] [address] [facility] [id number] [address] [place] [phone] Apr, [facility] [address] [facility] [id number] [address] [place] [phone] Apr, Acute non-recurrent maxillar y sinusitis J01.00 [facility] [address] [facility] [id number] [address] [place] [phone] 07 Apr, 2017 Panlobular emphysema J43.1 [facility] [address] [facility] [id number] [address] [place] [phone] 04 Apr, 2017 [facility] [address] [facility] [id number] [address] [place] [id number] 04 Apr, 2017 Exudative tonsillitis J03.90 and Sore throat J02.9 [facility] [address] [facility] [id number] [address] [place] [phone] Mar, [facility] [address] [place] [id number] [address] [place] [id number] 15 Mar, 2017 Acute non-recurrent maxillar y sinusitis J01.00 [facility] [address] [id number] [address] [place] [id number] 13 Mar, 2017 [facility] [address] [facility] [id number] [address] [place] [phone] 09 Mar, 2017 Panlobular emphysema J43.1 a nd Diabetes E11.9 [facility] [address] [facility] [id number] [address] [place] [id number] 06 Mar, 2017 [facility] [place] [facility] [address] [facility] [id number] [address] [place] [id number] 24 Feb, 2017 Wheezing R06.2 and Acute rec urrent pansinusitis J01.41 [facility] [address] [facility] [id number] [address] [place] [address] Feb, [facility] [address] [facility] [id number] [address] [place] [address] Feb, Acute non-recurrent maxillar y sinusitis J01.00 [facility] [address] [place] [id number] [address] [place] [phone] Feb, Chronic obstructive pulmonar y disease, unspecified J44.9 [facility] [address] [facility] [id number] [address] [place] [phone] Feb, Hypoxemia R09.02 and Chronic obstructive pulmonary disease, unspecified J44.9 [facility] [address] [facility] [id number] [address] [place] [id number] 28 Jan, 2017 Bipolar 1 disorder, depresse d, moderate F31.32 ; Panic disorder with agoraphobia F40.01 ; Chronic post-traumatic stress disorder (PTSD) F43.12 ; Diabetes E11.9 and Moderate persistent asthma without complication J45.40 [facility] [address] [facility] [id number] [address] [place] [id number] 22 Jan, 2017 [facility] [address] [place] [id number] [address] [place] [address] Jan, Acute non-recurrent maxillar y sinusitis J01.00 [facility] [address] [id number] [address] [place] [phone] Jan, [facility] [address] [id number] [address] [place] [phone] Jan, [facility] [address] [id number] [address] [place] [id number] Jan, Moderate persistent asthma w ithout complication J45.40 and Hypoxemia R09.02 [facility] [address] [id number] [address] [place] [id number] Jan, Moderate persistent asthma w ithout complication J45.40 and Hypoxemia R09.02 [facility] [address] [id number] [address] [place] [id number] Jan, [facility] [address] [id number] [address] [place] [address] Dec, Acute non-recurrent maxillar y sinusitis J01.00 [facility] [address] [id number] [address] [place] [id number] Dec, Chronic obstructive pulmonar y disease, unspecified J44.9 [facility] [address] [id number] [address] [place] [id number] Dec, [facility] [address] [id number] [address] [place] [phone] Dec, Mild persistent asthma witho ut complication J45.30 and Other chronic pain G89.29 [facility] [address] [id number] [address] [place] [address] Nov, [facility] [address] [id number] [address] [place] [phone] Nov, Acute non-recurrent maxillar y sinusitis J01.00 [facility] [address] [id number] [address] [place] [id number] Nov, [facility] [address] [id number] [address] [place] [id number] Nov, [facility] [address] [id number] [address] [place] [phone] Oct, [facility] [address] [facility] [id number] [address] [place] [id number] Oct, Bipolar 1 disorder, depresse d, partial remission F31.75 ; Panic disorder with agoraphobia F40.01 and Chronic post-traumatic stress disorder (PTSD) F43.12 [facility] [address] [id number] [address] [place] [phone] Oct, Acute non-recurrent maxillar y sinusitis J01.00 [facility] [address] [id number] [address] [place] [id number] Oct, [facility] [address] [facility] [id number] [address] [place] [phone] Oct, Diabetes E11.9 [facility] [address] [id number] [address] [place] [id number] September, Diabetes E11.9 [facility] [address] [facility] [id number] [address] [place] [phone] September, Diabetes E11.9 and Sinus tac hycardia R00.0 [facility] [address] [id number] [address] [place] [id number] September, [facility] [address] [facility] [id number] [address] [place] [phone] September, [facility] [address] [facility] [id number] [address] [place] [id number] Aug, Diabetes E11.9 and Lumbago w ith sciatica, right side M54.41 [facility] [address] [id number] [address] [place] [phone] Aug, [facility] [address] [facility] [id number] [address] [place] [phone] Jul, Bipolar 1 disorder, depresse d, moderate F31.32 ; Panic disorder with agoraphobia F40.01 and Chronic post-traumatic stress disorder (PTSD) F43.12 [facility] [address] [facility] [id number] [address] [place] [phone] Jul, Sore throat J02.9 [facility] [address] [facility] [id number] [address] [place] [id number] Jul, [facility] [address] [place] [id number] [address] [place] [id number] Jul, [facility] [address] [facility] [id number] [address] [place] [phone] Jul, [facility] [address] [place] [id number] [address] [place] [phone] Jul, [facility] [address] [place] [id number] [address] [place] [address] Jul, Sore throat J02.9 and Pharyn gitis, unspecified etiology J02.9 [facility] [address] [facility] [id number] [address] [place] [phone] Jun, [facility] [address] [facility] [id number] [address] [place] [address] Jun, Diabetes E11.9 [facility] [address] [facility] [id number] [address] [place] [phone] Jun, [facility] [address] [place] [id number] [address] [place] [phone] Jun, [facility] [address] [facility] [id number] [address] [place] [phone] Jun, [facility] [address] [place] [id number] [address] [place] [phone] Jun, [facility] [address] [place] [id number] [address] [place] [phone] Jun, [facility] [address] [id number] [address] [place] [id number] 15 Jun, 2016 [facility] [address] [id number] [address] [place] [phone] Jun, [facility] [address] [id number] [address] [place] [address] Jun, [facility] [address] [id number] [address] [place] [address] May, Diabetes E11.9 ; Other chron ic pain G89.29 ; Acute recurrent maxillary sinusitis J01.01 ; Bipolar I disorder with depression F31.9 and Anxiety disorder, unspecified F41.9 [facility] [address] [id number] [address] [place] [phone] May, [facility] [address] [id number] [address] [place] [address] May, Diabetes E11.9 ; Bipolar I d isorder with depression F31.9 ; Anxiety disorder, unspecified F41.9 ; Other chronic pain G89.29 and Acute recurrent maxillary sinusitis J01.01 [facility] [address] [id number] [address] [place] [phone] May, [facility] [address] [id number] [address] [place] [id number] May, Attention deficit hyperactiv ity disorder (ADHD), predominantly inattentive type F90.0 [facility] [address] [id number] [address] [place] [address] May, [facility] [address] [id number] [address] [place] [phone] Apr, Attention deficit hyperactiv ity disorder (ADHD), predominantly inattentive type F90.0 and Non-seasonal allergic rhinitis due to other allergic trigger J30.89 [facility] [address] [id number] [address] [place] [address] Apr, Bipolar 1 disorder, depresse d, moderate F31.32 ; Panic disorder with agoraphobia F40.01 and Chronic post-traumatic stress disorder (PTSD) F43.12 [facility] [address] [id number] [address] [place] [address] Apr, Dental examination Z01.20 [facility] [address] [id number] [address] [place] [phone] Mar, [facility] [address] [id number] [address] [place] [phone] Mar, [facility] [address] [id number] [address] [place] [id number] Mar, Bipolar I disorder with depr ession F31.9 and Anxiety disorder, unspecified F41.9 [place] [id number] [id number] [address] [place] [id number] 08 Mar, 2016 Panic disorder with agorapho syd F40.01 ; Bipolar 1 disorder, depressed, moderate F31.32 and Chronic post-traumatic stress disorder (PTSD) F43.12 [facility] [address] [id number] [address] [place] [phone] Mar, [place] [id number] [id number] [address] [place] [phone] Mar, Dental caries K02.9 [facility] [address] [id number] [address] [place] [address] 24 Feb, 2016 Lumbago with sciatica, left side M54.42 ; Lumbago with sciatica, right side M54.41 and Other chronic pain G89.29 [facility] [address] [id number] [address] [place] [phone] Feb, [facility] [address] [id number] [address] [place] [phone] 14 Feb, 2016 [facility] [address] [id number] [address] [place] [address] Feb, Bipolar I disorder with depr ession F31.9 ; PTSD (post-traumatic stress disorder) F43.10 and Mood disorder F39 [facility] [address] [place] [id number] [address] [place] [id number] Feb, [facility] [address] [place] [id number] [address] [place] [address] Feb, Dental examination Z01.20 [facility] [address] [phone] 07 Feb, 2016 [facility] [address] [place] [id number] [address] [place] [address] Feb, Acute bronchitis, unspecifie d organism J20.9 [place] [address] [place] [id number] [place] [phone] 26 Jan, 2016 Mood disorder F39 ; Migraine without aura and without status migrainosus, not intractable G43.009 ; Irritable bowel syndrome, unspecified type K58.9 ; Diabetes E11.9 and Encounter for immunization Z23 [facility] [address] [address] 15 Jan, 2016 [place] [address] [id number] Jan, [place] [address] [address] Jan, [facility] [address] [address] Jan, [place] [address] [address] Jan, [facility] [address] [address] Dec, Bipolar I disorder with depr ession F31.9 ; PTSD (post-traumatic stress disorder) F43.10 and Panic disorder with agoraphobia F40.01 [facility] [address] [address] Dec, Chronic obstructive pulmonar y disease, unspecified COPD type J44.9 ; Tremor R25.1 and Anxiety F41.9 [facility] [address] [id number] [address] [place] [phone] Dec, [facility] [address] [id number] [address] [place] [phone] Nov, Tremors of nervous system R2 5.1 and Cramping of feet R25.2 [facility] [address] [id number] [address] [place] [phone] Nov, [facility] [address] [id number] [address] [place] [phone] Nov, [facility] [address] [facility] [id number] [address] [place] [address] Oct, Chronic obstructive pulmonar y disease, unspecified J44.9 [facility] [address] [id number] [address] [place] [address] Oct, [facility] [address] [id number] [address] [place] [address] Oct, Tremor R25.1 [facility] [address] [facility] [id number] [address] [place] [id number] Oct, Bipolar I disorder with depr ession F31.9 ; Diabetes E11.9 ; PTSD (post-traumatic stress disorder) F43.10 and Panic disorder with agoraphobia F40.01 [facility] [address] [id number] [address] [place] [phone] Oct, Mood disorder F39 [facility] [address] [id number] [address] [place] [address] September, [facility] [address] [facility] [id number] [address] [place] [id number] September, Diabetes E11.9 ; Bipolar I d isorder with depression F31.9 ; PTSD (post-traumatic stress disorder) F43.10 and Panic disorder with agoraphobia F40.01 [facility] [address] [facility] [id number] [address] [place] [address] September, Mood disorder F39 ; Schizoaf fective disorder, unspecified type F25.9 ; Arthritis M19.90 ; Tremor R25.1 ; Acute non-recurrent frontal sinusitis J01.10 and Blood in stool K92.1 [facility] [address] [facility] [id number] [address] [place] [phone] September, [facility] [address] [facility] [id number] [address] [place] [phone] September, Chronic obstructive pulmonar y disease, unspecified J44.9 [place] [address] [facility] [id number] [address] [place] [address] September, Diabetes E11.9 [place] [id number] [facility] [id number] [address] [place] [address] Aug, Other bipolar disorder F31.8 9 and Anxiety disorder, unspecified F41.9 [facility] [address] [place] [id number] [address] [place] [id number] Aug, [place] [address] [facility] [id number] [address] [place] [address] Aug, Diabetes E11.9 [facility] [address] [facility] [id number] [address] [place] [id number] 18 Aug, 2015 [place] [address] [place] [id number] [address] [place] [id number] 14 Aug, 2015 Diabetes E11.9 ; Fatigue R53 .83 and Dizziness R42 [place] [id number] [facility] [id number] [address] [place] [phone] 13 Aug, 2015 Other bipolar disorder F31.8 9 [facility] [address] [facility] [id number] [address] [place] [id number] 07 Aug, 2015 Generalized anxiety disorder F41.1 [facility] [address] [place] [id number] [address] [place] [phone] Aug, Other bipolar disorder F31.8 9 and Anxiety disorder, unspecified F41.9 [facility] [address] [id number] [address] [place] [id number] Aug, [facility] [address] [id number] [address] [place] [phone] Jul, [facility] [address] [id number] [address] [place] [id number] Jul, [facility] [address] [id number] [address] [place] [phone] Jul, Bronchitis J40 [facility] [address] [id number] [address] [place] [phone] Jul, Anxiety disorder F41.9 [facility] [address] [id number] [address] [place] [phone] Jul, Other bipolar disorder F31.8 9 and Anxiety disorder, unspecified F41.9 [facility] [address] [id number] [address] [place] [address] Jul, Other bipolar disorder F31.8 9 and Fibromyalgia M79.7 [facility] [address] [id number] [address] [place] [phone] Jul, [facility] [address] [id number] [address] [place] [id number] Jul, [facility] [address] [id number] [address] [place] [id number] Jul, [facility] [address] [id number] [address] [place] [address] Jul, Other bipolar disorder F31.8 9 and Anxiety disorder, unspecified F41.9 [facility] [address] [id number] [address] [place] [id number] Jun, GERD (gastroesophageal reflu x disease) K21.9 [facility] [address] [id number] [address] [place] [phone] 08 Jun, 2015 [facility] [address] [facility] [id number] [address] [place] [address] May, [facility] [address] [place] [id number] [address] [place] [address] May, Diabetes E11.9 ; Back pain M 54.9 ; GERD (gastroesophageal reflux disease) K21.9 ; Hypertension I10 and Peripheral neuropathy G62.9 [facility] [address] [facility] [id number] [address] [place] [phone] Mar, [facility] [address] [place] [id number] [place] [phone] Mar, [facility] [address] [place] [id number] [place] [address] Mar, Acute sinusitis J01.90 and O titis media, left H66.92 [facility] [address] [place] [id number] [address] [place] [address] Feb, [facility] [address] [place] [id number] [place] [phone] Feb, [facility] [address] [place] [id number] [place] [phone] Feb, [facility] [address] [place] [id number] [address] [place] [phone] Feb, [facility] [address] [place] [id number] [address] [place] [address] Jan, [facility] [address] [place] [id number] [address] [place] [id number] Jan, Diabetes 250.00 and Back higinio n 724.5 [facility] [address] [place] [id number] [address] [place] [id number] Jan, [facility] [address] [place] [id number] [address] [place] [address] Dec, Diabetes 250.00 ; Benign ess ential hypertension 401.1 and Allergic rhinitis 477.9 [facility] [address] [place] [id number] [address] [place] [id number] Dec, [facility] [address] [place] [id number] [address] [place] [phone] Dec, [facility] [address] [place] [id number] [address] [place] [address] Dec, Psychosis 298.9 [facility] [address] [place] [id number] [place] [address] Dec, Medication side effect 995.2 0 and Generalized anxiety disorder 300.02 [place] [address] [place] [id number] [address] [place] [address] Dec, Acquired cognitive dysfuncti on 294.9 [place] [address] [address] Dec, [facility] [address] [address] Dec, Unspecified myalgia and myos itis 729.1 and Generalized anxiety disorder 300.02 [facility] [address] [place] [id number] [address] [place] [phone] Nov, [facility] [address] [place] [id number] [address] [place] [address] Nov, [facility] [address] [place] [id number] [address] [place] [id number] Nov, [facility] [address] [place] [id number] [address] [place] [phone] Nov, Upper respiratory infection 465.9 and Chronic airway obstruction, not elsewhere classified 496 [facility] [address] [place] [id number] [address] [place] [address] Nov, Hyponatremia 276.1 [facility] [address] [place] [id number] [place] [phone] Oct, [facility] [address] [id number] [address] [place] [phone] Oct, [facility] [address] [id number] [address] [place] [address] Oct, [facility] [address] [facility] [id number] [address] [place] [id number] Oct, [facility] [address] [id number] [address] [place] [id number] 04 Oct, 2014 Hyponatremia 276.1 [facility] [address] [id number] [address] [place] [phone] Oct, [facility] [address] [facility] [id number] [address] [place] [phone] Oct, [facility] [address] [facility] [id number] [address] [place] [address] Oct, Generalized anxiety disorder 300.02 [facility] [address] [id number] [address] [place] [id number] Oct, Generalized anxiety disorder 300.02 and Diabetes 250.00 [facility] [address] [id number] [address] [place] [id number] Aug, [facility] [address] [facility] [id number] [address] [place] [phone] Aug, [facility] [address] [id number] [address] [place] [id number] Jul, [facility] [address] [id number] [address] [place] [id number] Jul, [facility] [address] [id number] [address] [place] [id number] Jun, [facility] [address] [id number] [address] [place] [id number] Jun, [facility] [address] [facility] [id number] [address] [place] [id number] Jun, [facility] [address] [id number] [address] [place] [address], [place] [address] Jun, [facility] [address] [id number] [address] [place] [address], [place] [address] Jun, [facility] [address] [id number] [address] [place] [address], [place] [address] May, [facility] [address] [id number] [address] [place] [address], [place] [address] May, [facility] [address] [id number] [address] [place] [address], [place] [address] Apr, [facility] [address] [id number] [address] [place] [address], [place] [address] Apr, [facility] [address] [id number] [address] [place] [address], [place] [address] Apr, [facility] [address] [id number] [address] [place] [address], [place] [address] Apr, [facility] [address] [id number] [address] [place] [address], [place] [address] Apr, [facility] [address] [id number] [address] [place] [address], [place] [address] Apr, [facility] [address] [id number] [address] [place] [address], [place] [address] Apr, [facility] [address] [id number] [address] [place] [address], [place] [address] Apr, [facility] [address] [id number] [address] [place] [address], [place] [address] Feb, [facility] [address] [id number] [address] [place] [address], [place] [address] Feb, [facility] [address] [id number] [address] [place] [address], [place] [address] Jan, [facility] [address] [id number] [address] [place] [address], [place] [address] Jan, [facility] [address] [id number] [address] [place] [address], [place] [address] Dec, [facility] [address] [id number] [address] [place] [address], [place] [address] Dec, [facility] [address] [id number] [address] [place] [address], [place] [address] Dec, [facility] [address] [id number] [address] [place] [address], [place] [address] Nov, [facility] [address] [id number] [address] [place] [address], [place] [address] Nov, [facility] [address] [id number] [address] [place] [address], [place] [address] Nov, [facility] [address] [id number] [address] [place] [address], [place] [address] Oct, [facility] [address] [id number] [address] [place] [address], [place] [address] Oct, [facility] [address] [id number] [address] [place] [address], [place] [address] Oct, [facility] [address] [id number] [address] [place] [address], [place] [address] September, [facility] [address] [id number] [address] [place] [address], [place] [address] September, [facility] [address] [id number] [address] [place] [address], [place] [address] September, [facility] [address] [id number] [address] [place] [address], [place] [address] Aug, [facility] [address] [id number] [address] [place] [address], [place] [address] Aug, [facility] [address] [id number] [address] [place] [address], [place] [address] Aug, [facility] [address] [id number] [address] [place] [address], [place] [address] 16 Aug, 2011 [facility] [address] [id number] [address] [place] [address], [place] [address] Jul, [facility] [address] [id number] [address] [place] [address], [place] [address] Jun, [facility] [address] [id number] [address] [place] [address], [place] [address] 14 Jun, 2011 [facility] [address] [id number] [address] [place] [address], [place] [address] 13 Jun, 2011 [facility] [address] [id number] [address] [place] [address], [place] [address] 07 Jun, 2011 [facility] [address] [id number] [address] [place] [address], [place] [address] Jun, [facility] [address] [id number] [address] [place] [address], [place] [address] May, [facility] [address] [id number] [address] [place] [address], [place] [address] May, [facility] [address] [id number] [address] [place] [address], [place] [address] May, [facility] [address] [id number] [address] [place] [address], [place] [address] May, [facility] [address] [id number] [address] [place] [address], [place] [address] Apr, [facility] [address] [id number] [address] [place] [address], [place] [address] Apr, [facility] [address] [id number] [address] [place] [address], [place] [address] 05 Apr, 2011 [facility] [address] [id number] [address] [place] [address], [place] [address] Mar, [facility] [address] [id number] [address] [place] [id number] 11 Mar, 2011 [facility] [address] [id number] [address] [place] [id number] Mar, [facility] [address] [id number] [address] [place] [id number] 13 Feb, 2011 [facility] [address] [id number] [address] [place] [id number] 13 Feb, 2011 [facility] [address] [id number] [address] [place] [id number] 13 Feb, 2011 [facility] [address] [id number] [address] [place] [id number] Nov, [facility] [address] [id number] [address] [place] [id number] September, [facility] [address] [id number] [address] [place] [id number] Aug, [facility] [address] [id number] [address] [place] [id number] 14 Jul, 2010 [facility] [address] [id number] [address] [place] [id number] May, [facility] [address] [id number] [address] [place] [id number] Apr, [facility] [address] [id number] [address] [place] [id number] Apr, [facility] [address] [id number] [address] [place] [id number] Apr, [facility] [address] [id number] [address] [place] [id number] Apr, [facility] [address] [id number] [address] [place] [id number] Apr, IMMUNIZATIONS No Known Immunizations SOCIAL HISTORY Never Assessed REASON FOR VISIT Med reconciliation/CCM note PLAN OF CARE VITAL SIGNS MEDICATIONS Medication Instructions Dosage Frequency Start Date End Date Duration S samantha Garcia HFA 108 (90 Base) MCG/ACT Inhalation every 4 hrs 2 puffs a s needed 4h Dec, Active Benztropine Mesylate 0.5 MG Orally 3 times a day-Q AM, 4pm and bedtime for restlessness 1 tablet Mar, Active [id number]-Uautsnhl 50-325-40 MG Orally 3 times a day 1 cap yg as needed 8h Jun, Active Topiramate 50 mg Orally Twice a day 1 tablet 12h Nov, 30 day(s) Active Aspir-81 81 MG Orally Once a day 1 tablet 24h Active Multivitamin Adult - Act minoo Lorazepam 2 MG Orally in the AM and noon and 4pm 1 tablet 2015 Active Dicyclomine HCl 20 mg Orally Four times a day 1 tablet 6h 18 2017 30 day(s) Active Amitiza 8 MCG Orally Twice a day 1 capsule with food 12h Nov, 30 day(s) Active Cetirizine HCl 10 mg Orally Once a day 1 tablet 24h Apr, 30 day(s) Active Lisinopril 40 MG Orally Once a day 1 tablet 24h Active Flonase 50 mcg/act 1 spray in each nostril 12h Apr, Active Gabapentin 800 MG Orally Three times a day 1 tablet 8h Jul, Active Anoro Ellipta 62.5-25 MCG/INH Inhalation Once a day 1 puff 24h Oct, 30 days Active Metoprolol Tartrate 50 mg Orally Twice a day TAKE ONE TABLE T BY MOUTH TWICE DAILY WITH FOOD 12h Active Glucosamine 1000 MG Orally Once a day 2 capsules 24h Active Amlodipine Besylate 5 MG Orally Once a day 1 tablet 24h Active Ondansetron 4 MG Orally every 8 hrs PRN 1 tablet on the t ongue and allow to dissolve Apr, 30 days Active Nexium 40 mg 1 capsule 24h Active [place] 7.5-325 MG Orally 3 times a day 1 tablet as needed 8h Nov, 28 days Active MiraLax - Orally 3 times a day until you have a BM then Reduce to once daily. 17 grams mixed with 8 oz of fluid 30 days Active Pulmicort Flexhaler 90 MCG/ACT Inhalation Twice a day 1 puff 12h Nov, Active Trazodone HCl 100 mg Orally for sleep 1 tablet at bedtime Jan Active Xopenex 1.25 MG/3ML Inhalation 4 times a day prn 3 ml Dec, 30 days Active Adderall XR 20 mg Orally Once a day for depression 1 capsule in the morning Nov, 28 days Active Insulin Pen Needle 32G X 6 MM as directed 24h Oct, Active Atorvastatin Calcium 10 MG Orally Once a day 1 tablet 24h Active Clonidine HCl 0.1 MG 1 tablet 8h Ac tive Lamictal 100 mg Orally 2 times a day for depression 1 tablet September, Active Gaviscon 80-14.2 MG Orally 4 times a day 4 tablet 6h Active Guaifenesin 400 mg Orally every 4 hrs 1 tablet 4h Active Baclofen 20 MG Orally Three times a day 1 tablet with food or milk 8h 30 Active Nebulizer 1 as directed Jul, Act minoo Sudafed 30 MG Orally every 6 hrs 1 tablet as needed 6h September, Not-Taking Levemir FlexTouch 100 UNIT/ML Subcutaneous Once a day 7 units 24h September, 30 days Active BusPIRone HCl 15 mg Orally 3 times a day for anxiety 1 tablet Jan, Active Metformin HCl 1000 MG Orally Twice a day 1 tablet with meals 12h Aug, 30 day(s) Active Loxapine Succinate 10 mg Orally twice a day for mood 1 capsule Active Diclofenac Sodium 1 % Transdermal Four times a day 2-4- grams to affected areas 6h Jun, 30 days Active Calcium 600 + D 600-200 MG-UNIT Active Singulair 10 mg Orally Once a day 1 tablet in the evening 24h Oct, 30 day(s) Active RESULTS No Results PROCEDURES [...]
--- OUTSIDE RECORDS SUMMARY | 2019-07-17 11:26 | XMS REPORT ---
Author Author Sujey GANDHI Organization [facility] Address [address] [place] [address] Care Team Providers Care Ore Digger Name Role Phone WHIT GANDHI Unavailable PROBLEMS Type Condition ICD9-CM Code RSN91-AE Code Onset Dates Condition S tatus SNOMED Code Problem Diabetes E11.9 Active 97213185 Problem GERD (gastroesophageal reflux disease) K21.9 Active 779169592 Problem Anxiety disorder, unspecified F41.9 Active 841754953 Problem Hypertension I10 Active 8973893 3 Problem Other bipolar disorder F31.89 Active 62654843 Problem Fibromyalgia M79.7 Active 5247699 7 Problem Panic disorder with agoraphobia F40.01 Active 29072845 Problem Chronic obstructive pulmonary disease, unspecified J44.9 Active 59175400 Problem Lumbago with sciatica, left side M54.42 Active 510627954 Problem Migraine without aura and without status migrain osus, not intractable G43.009 Active 728430258 Problem Lumbago with sciatica, right side M54.41 Active 425558528 Problem Fibrocystic disease of right breast N60.11 Active 59286478 Problem Other chronic pain G89.29 Active 8 1350038 Problem Fibrocystic disease of left breast N60.12 Active 78272538 Problem Irritable bowel syndrome with constipation K58.1 Active 050091120 Problem Arthritis M19.90 Active 5763099 Problem Abnormal mammogram of right breast R92.8 Active 169386537 Problem Daytime somnolence R40.0 Active 1 [id number] Problem Bipolar affective disorder, remission status unspecified F31.9 Active 49585009 Problem Chronic post-traumatic stress disorder (PTSD) F43. 12 Active 249379575 Problem Bipolar 1 disorder, depressed, moderate F31.32 Active 96961671 Problem Schizoaffective disorder, bipolar type F25.0 Active 18674314 Problem Irritable bowel syndrome with both constipation and diarrh ea K58.2 Active 99223553 Problem Slow transit constipation K59.01 Acti ve 20372913 Problem Essential tremor G25.0 Active 609 820377 Problem Acute non-recurrent maxillary sinusitis J01.00 Active 92033713 Problem Back pain M54.9 Active 891487600 Problem Bipolar 1 disorder, depressed, partial remission F 31.75 Active 65462398 Problem Attention deficit hyperactiv ity disorder (ADHD), predominantly inattentive type F90.0 Active 72923068 Problem Bipolar I disorder with depression F31.9 Active 96223212 Problem Panlobular emphysema J43.1 Active 1483721 Problem Akathisia G25.71 Active 537909793 Problem Mild persistent asthma without complication J45.30 Active 012467496 Problem Moderate persistent asthma without complication J4 5.40 Active 922831281 ALLERGIES No Information ENCOUNTERS Encounter Location Date Diagnosis [place] [address] [place] [id number] [place] [phone] Mar, [place] [address] [phone] 27 Jan, 2018 [place] [address] [place] [id number] [address] [place] [phone] 20 Jan, 2018 Cerebrovascular accident (CV A) due to occlusion of right cerebellar artery I63.541 [place] [address] [place] [id number] [place] [phone] 19 Jan, 2018 [place] [address] [place] [id number] [place] [phone] 13 Jan, 2018 Arthritis M19.90 [place] [address] [place] [id number] [place] [phone] 07 Jan, 2018 [place] [address] [place] [id number] [place] [phone] 04 Jan, 2018 Abnormal mammogram of right breast R92.8 [place] [address] [place] [id number] [place] [phone] Dec, Daytime somnolence R40.0 and Right otitis media with effusion H65.91 [place] [address] [place] [id number] [place] [phone] Dec, [facility] [address] [id number] [address] [place] [phone] Dec, Cerebrovascular accident (CV A) due to occlusion of right cerebellar artery I63.541 [facility] [address] [id number] [address] [place] [phone] Dec, [facility] [address] [facility] [id number] [address] [place] [phone] Dec, [facility] [address] [facility] [id number] [address] [place] [phone] Nov, Bipolar 1 disorder, depresse d, partial remission F31.75 and Panic disorder with agoraphobia F40.01 [facility] [address] [facility] [id number] [address] [place] [phone] Nov, Panlobular emphysema J43.1 [facility] [address] [facility] [id number] [address] [place] [phone] Nov, Cerebrovascular accident (CV A) due to occlusion of right cerebellar artery I63.541 and Acute non-recurrent maxillary sinusitis J01.00 [facility] [address] [facility] [id number] [address] [place] [phone] Nov, Panlobular emphysema J43.1 [facility] [address] [facility] [id number] [address] [place] [phone] Nov, [facility] [address] [facility] [id number] [address] [place] [phone] Nov, [facility] [address] [facility] [id number] [address] [place] [phone] Nov, [facility] [address] [facility] [id number] [address] [place] [phone] Nov, [facility] [address] [facility] [id number] [address] [place] [phone] Nov, [facility] [address] [facility] [id number] [address] [place] [phone] Nov, [facility] [address] [facility] [id number] [address] [place] [phone] Nov, [facility] [address] [facility] [id number] [address] [place] [phone] Nov, Mild persistent asthma witho ut complication J45.30 and Irritable bowel syndrome with both constipation and diarrhea K58.2 [facility] [address] [facility] [id number] [address] [place] [phone] Nov, [facility] [address] [facility] [id number] [address] [place] [phone] Oct, [facility] [address] [facility] [id number] [address] [place] [phone] Oct, [facility] [address] [place] [id number] [address] [place] [phone] Oct, Type 2 diabetes mellitus wit h diabetic neuropathy, unspecified whether snf insulin use E11.40 ; Diabetes E11.9 ; Slow transit constipation K59.01 ; Edema of both legs R60.0 and Dysfunction of right eustachian tube H69.81 [facility] [address] [place] [id number] [place] [phone] Oct, Frequent headaches R51 [facility] [address] [facility] [id number] [address] [place] [phone] Oct, [facility] [address] [place] [id number] [place] [phone] Oct, [facility] [address] [facility] [id number] [address] [place] [phone] Oct, [facility] [address] [place] [id number] [place] [phone] Oct, [facility] [address] [facility] [id number] [address] [place] [phone] Oct, [facility] [address] [place] [id number] [place] [phone] Oct, [facility] [address] [facility] [id number] [address] [place] [phone] Oct, [facility] [address] [facility] [id number] [address] [place] [phone] Oct, [facility] [address] [facility] [id number] [address] [place] [phone] September, Frequent headaches R51 [facility] [address] [facility] [id number] [address] [place] [phone] September, Bilateral otitis media with effusion H65.93 ; Dizziness R42 and Essential tremor G25.0 [facility] [address] [facility] [id number] [address] [place] [phone] September, Chronic obstructive pulmonar y disease, unspecified COPD type J44.9 [facility] [address] [facility] [id number] [address] [place] [phone] September, Chronic obstructive pulmonar y disease, unspecified COPD type J44.9 [facility] [address] [facility] [id number] [address] [place] [phone] September, Migraine without aura and wi thout status migrainosus, not intractable G43.009 [facility] [address] [facility] [id number] [address] [place] [phone] September, [facility] [address] [facility] [id number] [address] [place] [phone] September, [facility] [address] [facility] [id number] [address] [place] [phone] September, [facility] [address] [facility] [id number] [address] [place] [phone] September, Frequent headaches R51 [facility] [address] [facility] [id number] [address] [place] [phone] Aug, [facility] [address] [place] [id number] [place] [phone] Aug, Breast mass, right N63.10 [facility] [address] [place] [id number] [place] [phone] Aug, Breast lump N63.0 [facility] [address] [place] [id number] [place] [phone] Aug, [facility] [address] [place] [id number] [place] [phone] Aug, Bipolar affective disorder, remission status unspecified F31.9 and Diabetes E11.9 [place] [address] [id number] Aug, Diabetes E11.9 ; Schizoaffec tive disorder, bipolar type F25.0 ; Pharyngitis due to other organism J02.8 ; Panlobular emphysema J43.1 and Irritable bowel syndrome with both constipation and diarrhea K58.2 [place] [address] [phone] Aug, Abnormal mammogram R92.8 [place] [address] [place] [id number] [place] [phone] Aug, [place] [address] [place] [id number] [place] [phone] Aug, Bipolar 1 disorder, depresse d, moderate F31.32 ; Panic disorder with agoraphobia F40.01 and Chronic post-traumatic stress disorder (PTSD) F43.12 [place] [address] [place] [id number] [place] [phone] Aug, [place] [address] [phone] Aug, [place] [address] [place] [id number] [place] [phone] Aug, [place] [address] [place] [id number] [address] [place] [phone] 26 Jul, 2017 [facility] [address] [id number] [address] [place] [phone] 20 Jul, 2017 Mild persistent asthma witho ut complication J45.30 [facility] [address] [id number] [address] [place] [phone] 19 Jul, 2017 Mild persistent asthma witho ut complication J45.30 [facility] [address] [id number] [address] [place] [phone] 15 Jul, 2017 Bipolar affective disorder, remission status unspecified F31.9 ; Diabetes E11.9 and Irritable bowel syndrome with constipation K58.1 [facility] [address] [id number] [address] [place] [phone] Jul, [facility] [address] [id number] [address] [place] [phone] Jul, [facility] [address] [id number] [address] [place] [phone] Jul, Frequent headaches R51 [facility] [address] [id number] [address] [place] [phone] Jul, [facility] [address] [id number] [address] [place] [phone] Jul, [facility] [address] [facility] [id number] [address] [place] [phone] Jul, [facility] [address] [id number] [address] [place] [phone] Jul, Frequent headaches R51 ; Fib rocystic disease of left breast N60.12 ; Fibrocystic disease of right breast N60.11 and Diabetes E11.9 [facility] [address] [id number] [address] [place] [phone] Jul, [facility] [address] [id number] [address] [place] [phone] Jul, [facility] [address] [facility] [id number] [address] [place] [id number] 21 Jun, 2017 Exudative tonsillitis J03.90 [facility] [address] [id number] [address] [place] [phone] 20 Jun, 2017 [facility] [address] [facility] [id number] [address] [place] [phone] 19 Jun, 2017 [facility] [address] [facility] [id number] [address] [place] [phone] 15 Jun, 2017 Mild persistent asthma witho ut complication J45.30 ; Chronic obstructive pulmonary disease, unspecified COPD type J44.9 and Exudative tonsillitis J03.90 [facility] [address] [facility] [id number] [address] [place] [phone] 13 Jun, 2017 Encounter for immunization Z 23 [facility] [address] [facility] [id number] [address] [place] [phone] 12 Jun, 2017 [facility] [address] [facility] [id number] [address] [place] [phone] 12 Jun, 2017 [facility] [address] [facility] [id number] [address] [place] [phone] 09 Jun, 2017 [facility] [address] [facility] [id number] [address] [place] [phone] 06 Jun, 2017 Tonsillitis J03.90 [facility] [address] [facility] [id number] [address] [place] [phone] 05 Jun, 2017 [facility] [address] [facility] [id number] [address] [place] [phone] 03 Jun, 2017 Acute non-recurrent maxillar y sinusitis J01.00 [facility] [address] [facility] [id number] [address] [place] [phone] Jun, [facility] [address] [facility] [id number] [address] [place] [phone] May, [facility] [address] [facility] [id number] [address] [place] [phone] May, [facility] [address] [facility] [id number] [address] [place] [phone] May, GERD (gastroesophageal reflu x disease) K21.9 [facility] [address] [facility] [id number] [address] [place] [phone] May, Migraine without aura and wi thout status migrainosus, not intractable G43.009 [facility] [address] [facility] [id number] [address] [place] [phone] May, [facility] [address] [phone] May, [place] [address] [address] May, Panlobular emphysema J43.1 a nd Acute non-recurrent maxillary sinusitis J01.00 [place] [address] [address] May, Bipolar 1 disorder, depresse d, moderate F31.32 ; Panic disorder with agoraphobia F40.01 and Akathisia G25.71 [place] [address] [address] Apr, [place] [address] [address] Apr, [facility] [address] [address] Apr, Acute non-recurrent maxillar y sinusitis J01.00 [place] [address] [facility] [id number] [address] [place] [phone] Apr, Panlobular emphysema J43.1 [facility] [address] [place] [id number] [place] [phone] Apr, [facility] [address] [facility] [id number] [address] [place] [phone] Apr, Exudative tonsillitis J03.90 and Sore throat J02.9 [facility] [address] [facility] [id number] [address] [place] [phone] Mar, [facility] [address] [facility] [id number] [address] [place] [id number] 15 Mar, 2017 Acute non-recurrent maxillar y sinusitis J01.00 [facility] [address] [place] [id number] [place] [phone] Mar, [facility] [id number] [place] [phone] Mar, Panlobular emphysema J43.1 a nd Diabetes E11.9 [place] [address] [place] [id number] [place] [phone] 06 Mar, 2017 [facility] [address] [place] [id number] [address] [place] [phone] Feb, Wheezing R06.2 and Acute rec urrent pansinusitis J01.41 [place] [address] [place] [id number] [place] [phone] Feb, [place] [address] [place] [id number] [place] [phone] Feb, Acute non-recurrent maxillar y sinusitis J01.00 [place] [address] [place] [id number] [address] [place] [phone] Feb, Chronic obstructive pulmonar y disease, unspecified J44.9 [facility] [id number] [place] [phone] Feb, Hypoxemia R09.02 and Chronic obstructive pulmonary disease, unspecified J44.9 [facility] [address] [place] [id number] [place] [id number] Jan, Bipolar 1 disorder, depresse d, moderate F31.32 ; Panic disorder with agoraphobia F40.01 ; Chronic post-traumatic stress disorder (PTSD) F43.12 ; Diabetes E11.9 and Moderate persistent asthma without complication J45.40 [facility] [address] [id number] [address] [place] [id number] 22 Jan, 2017 [facility] [address] [id number] [address] [place] [phone] Jan, Acute non-recurrent maxillar y sinusitis J01.00 [facility] [address] [id number] [address] [place] [phone] 18 Jan, 2017 [facility] [address] [id number] [address] [place] [phone] Jan, [facility] [address] [id number] [address] [place] [phone] Jan, Moderate persistent asthma w ithout complication J45.40 and Hypoxemia R09.02 [facility] [address] [facility] [id number] [address] [place] [phone] Jan, Moderate persistent asthma w ithout complication J45.40 and Hypoxemia R09.02 [facility] [address] [id number] [address] [place] [address] Jan, [facility] [address] [id number] [address] [place] [phone] Dec, Acute non-recurrent maxillar y sinusitis J01.00 [facility] [address] [facility] [id number] [address] [place] [phone] Dec, Chronic obstructive pulmonar y disease, unspecified J44.9 [facility] [address] [id number] [address] [place] [phone] Dec, [facility] [address] [id number] [address] [place] [phone] Dec, Mild persistent asthma witho ut complication J45.30 and Other chronic pain G89.29 [facility] [address] [facility] [id number] [address] [place] [phone] Nov, [facility] [address] [id number] [address] [place] [phone] Nov, Acute non-recurrent maxillar y sinusitis J01.00 [facility] [address] [id number] [address] [place] [phone] Nov, [facility] [address] [id number] [address] [place] [phone] Nov, [facility] [address] [id number] [address] [place] [phone] Oct, [facility] [address] [id number] [address] [place] [phone] Oct, Bipolar 1 disorder, depresse d, partial remission F31.75 ; Panic disorder with agoraphobia F40.01 and Chronic post-traumatic stress disorder (PTSD) F43.12 [facility] [address] [id number] [address] [place] [phone] Oct, Acute non-recurrent maxillar y sinusitis J01.00 [facility] [address] [id number] [address] [place] [phone] Oct, [facility] [address] [id number] [address] [place] [phone] Oct, Diabetes E11.9 [facility] [address] [id number] [address] [place] [phone] September, Diabetes E11.9 [facility] [address] [id number] [address] [place] [phone] September, Diabetes E11.9 and Sinus tac hycardia R00.0 [facility] [address] [id number] [address] [place] [phone] September, [facility] [address] [id number] [address] [place] [phone] September, [facility] [address] [id number] [address] [place] [phone] Aug, Diabetes E11.9 and Lumbago w ith sciatica, right side M54.41 [facility] [address] [id number] [address] [place] [phone] Aug, [facility] [address] [facility] [id number] [address] [place] [phone] Jul, Bipolar 1 disorder, depresse d, moderate F31.32 ; Panic disorder with agoraphobia F40.01 and Chronic post-traumatic stress disorder (PTSD) F43.12 [facility] [address] [id number] [address] [place] [phone] Jul, Sore throat J02.9 [facility] [address] [id number] [address] [place] [phone] Jul, [facility] [address] [facility] [id number] [address] [place] [phone] Jul, [facility] [address] [facility] [id number] [address] [place] [phone] Jul, [facility] [address] [facility] [facility] [id number] [address] [place] [phone] Jul, [facility] [address] [facility] [id number] [address] [place] [phone] Jul, Sore throat J02.9 and Pharyn gitis, unspecified etiology J02.9 [facility] [address] [facility] [id number] [address] [place] [phone] Jun, [facility] [address] [facility] [id number] [address] [place] [phone] Jun, Diabetes E11.9 [facility] [address] [facility] [id number] [address] [place] [phone] Jun, [facility] [address] [facility] [id number] [address] [place] [phone] Jun, [facility] [address] [facility] [id number] [address] [place] [phone] Jun, [facility] [address] [id number] [address] [place] [phone] Jun, [facility] [address] [id number] [address] [place] [phone] Jun, [facility] [address] [id number] [address] [place] [phone] Jun, [facility] [address] [id number] [address] [place] [phone] Jun, [facility] [address] [id number] [address] [place] [phone] Jun, [facility] [address] [facility] [id number] [address] [place] [phone] May, Diabetes E11.9 ; Other chron ic pain G89.29 ; Acute recurrent maxillary sinusitis J01.01 ; Bipolar I disorder with depression F31.9 and Anxiety disorder, unspecified F41.9 [facility] [address] [facility] [id number] [address] [place] [phone] May, [facility] [address] [facility] [id number] [address] [place] [phone] May, Diabetes E11.9 ; Bipolar I d isorder with depression F31.9 ; Anxiety disorder, unspecified F41.9 ; Other chronic pain G89.29 and Acute recurrent maxillary sinusitis J01.01 [facility] [address] [id number] [address] [place] [phone] May, [facility] [address] [facility] [id number] [address] [place] [phone] May, Attention deficit hyperactiv ity disorder (ADHD), predominantly inattentive type F90.0 [facility] [address] [id number] [address] [place] [phone] May, [facility] [address] [facility] [id number] [address] [place] [phone] Apr, Attention deficit hyperactiv ity disorder (ADHD), predominantly inattentive type F90.0 and Non-seasonal allergic rhinitis due to other allergic trigger J30.89 [facility] [address] [place] [id number] [address] [place] [phone] Apr, Bipolar 1 disorder, depresse d, moderate F31.32 ; Panic disorder with agoraphobia F40.01 and Chronic post-traumatic stress disorder (PTSD) F43.12 [facility] [address] [place] [id number] [address] [place] [phone] Apr, Dental examination Z01.20 [facility] [address] [place] [id number] [place] [phone] Mar, [facility] [address] [place] [id number] [place] [phone] Mar, [facility] [address] [phone] Mar, Bipolar I disorder with depr ession F31.9 and Anxiety disorder, unspecified F41.9 [facility] [address] [place] [id number] [address] [place] [phone] 08 Mar, 2016 Panic disorder with agorapho syd F40.01 ; Bipolar 1 disorder, depressed, moderate F31.32 and Chronic post-traumatic stress disorder (PTSD) F43.12 [facility] [address] [place] [id number] [address] [place] [phone] Mar, [facility] [address] [place] [id number] [address] [place] [phone] Mar, Dental caries K02.9 [facility] [address] [place] [id number] [address] [place] [phone] Feb, Lumbago with sciatica, left side M54.42 ; Lumbago with sciatica, right side M54.41 and Other chronic pain G89.29 [facility] [address] [place] [id number] [address] [place] [phone] 17 Feb, 2016 [facility] [address] [facility] [id number] [address] [place] [phone] 14 Feb, 2016 [facility] [address] [facility] [id number] [address] [place] [phone] Feb, Bipolar I disorder with depr ession F31.9 ; PTSD (post-traumatic stress disorder) F43.10 and Mood disorder F39 [facility] [address] [facility] [id number] [address] [place] [phone] Feb, [facility] [address] [facility] [id number] [address] [place] [phone] 11 Feb, 2016 Dental examination Z01.20 [facility] [address] [facility] [id number] [address] [place] [phone] 07 Feb, 2016 [facility] [address] [facility] [id number] [address] [place] [phone] Feb, Acute bronchitis, unspecifie d organism J20.9 [facility] [address] [facility] [id number] [address] [place] [phone] 26 Jan, 2016 Mood disorder F39 ; Migraine without aura and without status migrainosus, not intractable G43.009 ; Irritable bowel syndrome, unspecified type K58.9 ; Diabetes E11.9 and Encounter for immunization Z23 [facility] [address] [facility] [id number] [address] [place] [phone] 15 Jan, 2016 [facility] [address] [facility] [id number] [address] [place] [phone] 06 Jan, 2016 [facility] [address] [facility] [id number] [address] [place] [phone] Jan, [facility] [address] [facility] [id number] [address] [place] [phone] Jan, [facility] [address] [facility] [id number] [address] [place] [phone] Jan, [facility] [address] [id number] [address] [place] [phone] Dec, Bipolar I disorder with depr ession F31.9 ; PTSD (post-traumatic stress disorder) F43.10 and Panic disorder with agoraphobia F40.01 [facility] [address] [id number] [address] [place] [phone] Dec, Chronic obstructive pulmonar y disease, unspecified COPD type J44.9 ; Tremor R25.1 and Anxiety F41.9 [facility] [address] [id number] [address] [place] [phone] Dec, [facility] [address] [id number] [address] [place] [phone] Nov, Tremors of nervous system R2 5.1 and Cramping of feet R25.2 [facility] [address] [id number] [address] [place] [phone] Nov, [facility] [address] [id number] [address] [place] [phone] Nov, [facility] [address] [id number] [address] [place] [phone] Oct, Chronic obstructive pulmonar y disease, unspecified J44.9 [facility] [address] [id number] [address] [place] [phone] Oct, [facility] [address] [id number] [address] [place] [phone] Oct, Tremor R25.1 [facility] [address] [id number] [address] [place] [phone] Oct, Bipolar I disorder with depr ession F31.9 ; Diabetes E11.9 ; PTSD (post-traumatic stress disorder) F43.10 and Panic disorder with agoraphobia F40.01 [facility] [address] [id number] [address] [place] [phone] Oct, Mood disorder F39 [facility] [address] [id number] [address] [place] [phone] September, [facility] [address] [facility] [id number] [address] [place] [id number] September, Diabetes E11.9 ; Bipolar I d isorder with depression F31.9 ; PTSD (post-traumatic stress disorder) F43.10 and Panic disorder with agoraphobia F40.01 [place] [address] [place] [id number] [address] [place] [phone] September, Mood disorder F39 ; Schizoaf fective disorder, unspecified type F25.9 ; Arthritis M19.90 ; Tremor R25.1 ; Acute non-recurrent frontal sinusitis J01.10 and Blood in stool K92.1 [place] [address] [place] [id number] [address] [place] [phone] September, [place] [address] [place] [id number] [address] [place] [phone] September, Chronic obstructive pulmonar y disease, unspecified J44.9 [place] [address] [place] [id number] [address] [place] [phone] September, Diabetes E11.9 [place] [address] [place] [id number] [address] [place] [phone] Aug, Other bipolar disorder F31.8 9 and Anxiety disorder, unspecified F41.9 [place] [id number] [place] [phone] Aug, [facility] [address] [place] [id number] [address] [place] [phone] Aug, Diabetes E11.9 [place] [address] [place] [id number] [address] [place] [phone] Aug, [place] [address] [place] [id number] [address] [place] [phone] Aug, Diabetes E11.9 ; Fatigue R53 .83 and Dizziness R42 [place] [address] [place] [id number] [address] [place] [phone] 13 Aug, 2015 Other bipolar disorder F31.8 9 [facility] [address] [id number] [address] [place] [phone] 07 Aug, 2015 Generalized anxiety disorder F41.1 [facility] [address] [id number] [address] [place] [phone] 07 Aug, 2015 Other bipolar disorder F31.8 9 and Anxiety disorder, unspecified F41.9 [facility] [address] [id number] [address] [place] [phone] Aug, [facility] [address] [id number] [address] [place] [phone] Jul, [facility] [address] [id number] [address] [place] [phone] Jul, [facility] [address] [id number] [address] [place] [phone] Jul, Bronchitis J40 [facility] [address] [id number] [address] [place] [phone] Jul, Anxiety disorder F41.9 [facility] [address] [id number] [address] [place] [phone] Jul, Other bipolar disorder F31.8 9 and Anxiety disorder, unspecified F41.9 [facility] [address] [id number] [address] [place] [phone] Jul, Other bipolar disorder F31.8 9 and Fibromyalgia M79.7 [facility] [address] [id number] [address] [place] [phone] 10 Jul, 2015 [facility] [address] [id number] [address] [place] [phone] 09 Jul, 2015 [facility] [address] [id number] [address] [place] [phone] 08 Jul, 2015 [facility] [address] [facility] [id number] [address] [place] [phone] Jul, Other bipolar disorder F31.8 9 and Anxiety disorder, unspecified F41.9 [facility] [address] [facility] [id number] [address] [place] [phone] Jun, GERD (gastroesophageal reflu x disease) K21.9 [facility] [address] [facility] [id number] [address] [place] [phone] Jun, [facility] [address] [place] [id number] [place] [phone] May, [facility] [address] [place] [id number] [place] [phone] May, Diabetes E11.9 ; Back pain M 54.9 ; GERD (gastroesophageal reflux disease) K21.9 ; Hypertension I10 and Peripheral neuropathy G62.9 [facility] [address] [place] [id number] [address] [place] [phone] Mar, [facility] [address] [place] [id number] [address] [place] [phone] Mar, [facility] [address] [place] [id number] [place] [phone] Mar, Acute sinusitis J01.90 and O titis media, left H66.92 [facility] [address] [place] [id number] [address] [place] [phone] Feb, [facility] [address] [place] [id number] [address] [place] [phone] Feb, [facility] [address] [place] [id number] [address] [place] [phone] Feb, [facility] [address] [place] [id number] [place] [phone] Feb, [facility] [address] [place] [id number] [address] [place] [phone] 29 Jan, 2015 [facility] [address] [place] [id number] [address] [place] [phone] Jan, Diabetes 250.00 and Back higinio n 724.5 [facility] [address] [facility] [id number] [address] [place] [phone] Jan, [facility] [address] [facility] [id number] [address] [place] [phone] Dec, Diabetes 250.00 ; Benign ess ential hypertension 401.1 and Allergic rhinitis 477.9 [facility] [address] [facility] [id number] [address] [place] [phone] Dec, [facility] [address] [facility] [id number] [address] [place] [phone] Dec, [facility] [address] [facility] [id number] [address] [place] [phone] Dec, Psychosis 298.9 [facility] [address] [facility] [id number] [address] [place] [phone] Dec, Medication side effect 995.2 0 and Generalized anxiety disorder 300.02 [facility] [address] [facility] [id number] [address] [place] [phone] Dec, Acquired cognitive dysfuncti on 294.9 [facility] [address] [facility] [id number] [address] [place] [phone] Dec, [facility] [address] [facility] [id number] [address] [place] [phone] Dec, Unspecified myalgia and myos itis 729.1 and Generalized anxiety disorder 300.02 [facility] [address] [facility] [id number] [address] [place] [phone] Nov, [facility] [address] [facility] [id number] [address] [place] [phone] Nov, [facility] [address] [facility] [id number] [address] [place] [phone] Nov, [facility] [address] [facility] [id number] [address] [place] [phone] Nov, Upper respiratory infection 465.9 and Chronic airway obstruction, not elsewhere classified 496 [facility] [address] [id number] [address] [place] [phone] Nov, Hyponatremia 276.1 [facility] [address] [id number] [address] [place] [phone] Oct, [facility] [address] [id number] [address] [place] [phone] Oct, [facility] [address] [id number] [address] [place] [phone] Oct, [facility] [address] [id number] [address] [place] [phone] Oct, [facility] [address] [id number] [address] [place] [phone] Oct, Hyponatremia 276.1 [facility] [address] [id number] [address] [place] [phone] Oct, [facility] [address] [id number] [address] [place] [phone] Oct, [facility] [address] [facility] [id number] [address] [place] [phone] Oct, Generalized anxiety disorder 300.02 [facility] [address] [facility] [id number] [address] [place] [phone] Oct, Generalized anxiety disorder 300.02 and Diabetes 250.00 [facility] [address] [id number] [address] [place] [phone] Aug, [facility] [address] [id number] [address] [place] [phone] Aug, [facility] [address] [facility] [id number] [address] [place] [phone] Jul, [facility] [address] [facility] [id number] [address] [place] [phone] Jul, [facility] [address] [id number] [address] [place] [address], [place] [id number] Jun, [facility] [address] [id number] [address] [place] [address], [place] [id number] Jun, [facility] [address] [id number] [address] [place] [address], [place] [phone] Jun, [facility] [address] [id number] [address] [place] [address], [place] [phone] Jun, [facility] [address] [id number] [address] [place] [address], [place] [phone] Jun, [facility] [address] [id number] [address] [place] [address], [place] [id number] May, [facility] [address] [id number] [address] [place] [address], [place] [phone] May, [facility] [address] [id number] [address] [place] [address], [place] [phone] Apr, [facility] [address] [id number] [address] [place] [address], [place] [phone] Apr, [facility] [address] [id number] [address] [place] [address], [place] [id number] Apr, [facility] [address] [id number] [address] [place] [address], [place] [id number] Apr, [facility] [address] [id number] [address] [place] [address], [place] [id number] Apr, [facility] [address] [id number] [address] [place] [address], [place] [phone] Apr, [facility] [address] [id number] [address] [place] [address], [place] [id number] Apr, [facility] [address] [id number] [address] [place] [address], [place] [id number] Apr, [facility] [address] [id number] [address] [place] [address], [place] [id number] Feb, [facility] [address] [id number] [address] [place] [address], [place] [id number] Feb, [facility] [address] [id number] [address] [place] [address], [place] [phone] Jan, [facility] [address] [id number] [address] [place] [address], [place] [id number] Jan, [facility] [address] [id number] [address] [place] [address], [place] [id number] Dec, [facility] [address] [id number] [address] [place] [address], [place] [id number] Dec, [facility] [address] [id number] [address] [place] [address], [place] [id number] Dec, [facility] [address] [id number] [address] [place] [address], [place] [id number] Nov, [facility] [address] [id number] [address] [place] [address], [place] [id number] Nov, [facility] [address] [id number] [address] [place] [address], [place] [id number] Nov, [facility] [address] [id number] [address] [place] [address], [place] [id number] Oct, [facility] [address] [id number] [address] [place] [address], [place] [id number] Oct, [facility] [address] [id number] [address] [place] [address], [place] [id number] Oct, [facility] [address] [id number] [address] [place] [address], [place] [id number] September, [facility] [address] [id number] [address] [place] [address], [place] [id number] September, [facility] [address] [id number] [address] [place] [address], [place] [id number] September, [facility] [address] [id number] [address] [place] [address], [place] [id number] 25 Aug, 2011 [facility] [address] [id number] [address] [place] [address], [place] [id number] 20 Aug, 2011 [facility] [address] [id number] [address] [place] [address], [place] [id number] 19 Aug, 2011 [facility] [address] [id number] [address] [place] [address], [place] [id number] 16 Aug, 2011 [facility] [address] [id number] [address] [place] [address], [place] [id number] Jul, [facility] [address] [id number] [address] [place] [address], [place] [id number] 21 Jun, 2011 [facility] [address] [id number] [address] [place] [address], [place] [id number] 14 Jun, 2011 [facility] [address] [id number] [address] [place] [address], [place] [id number] 13 Jun, 2011 [facility] [address] [id number] [address] [place] [address], [place] [id number] 07 Jun, 2011 [facility] [address] [id number] [address] [place] [address], [place] [id number] 03 Jun, 2011 [facility] [address] [id number] [address] [place] [address], [place] [id number] 13 May, 2011 [facility] [address] [id number] [address] [place] [address], [place] [address] May, [facility] [address] [id number] [address] [place] [address], [place] [id number] 09 May, 2011 [facility] [address] [id number] [address] [place] [address], [place] [id number] 04 May, 2011 [facility] [address] [id number] [address] [place] [address], [place] [id number] 20 Apr, 2011 [facility] [address] [id number] [address] [place], [place] [address] [address] 13 Apr, 2011 [facility] [address] [id number] [address] [place] [address], [place] [id number] 05 Apr, 2011 [facility] [address] [id number] [address] [place] [address], [place] [id number] Mar, [facility] [address] [id number] [address] [place] [address], [place] [id number] Mar, [facility] [address] [id number] [address] [place] [address], [place] [id number] Mar, [facility] [address] [id number] [address] [place] [address], [place] [id number] 13 Feb, 2011 [facility] [address] [id number] [address] [place] [address], [place] [id number] 13 Feb, 2011 [facility] [address] [id number] [address] [place] [address], [place] [id number] Feb, [facility] [address] [id number] [address] [place] [address], [place] [id number] Nov, [facility] [address] [id number] [address] [place] [address], [place] [id number] September, [facility] [address] [id number] [address] [place] [address], [place] [id number] 12 Aug, 2010 [facility] [address] [id number] [address] [place] [address], [place] [id number] 14 Jul, 2010 [facility] [address] [id number] [address] [place] [address], [place] [id number] May, [facility] [address] [id number] [address] [place] [address], [place] [id number] 31 Apr, 2010 [facility] [address] [id number] [address] [place] [address], [place] [id number] 30 Apr, 2010 [facility] [address] [id number] [address] [place] [address], [place] [id number] 13 Apr, 2010 [facility] [address] [id number] [address] [place] [id number] Apr, [facility] [address] [facility] [id number] [address] [place] [id number] Apr, IMMUNIZATIONS No Known Immunizations SOCIAL HISTORY [...]
--- OUTSIDE RECORDS SUMMARY | 2019-07-17 11:27 | XMS REPORT ---
Author Author Sujey GANDHI Organization [facility] Address [address] [place] [address] Care Team Providers [employer] Name Role Phone WHIT GANDHI Unavailable PROBLEMS Type Condition ICD9-CM Code [id number] Code Onset Dates Condition S tatus SNOMED Code Problem Diabetes E11.9 Active 51813803 Problem GERD (gastroesophageal reflux disease) K21.9 Active 718947346 Problem Anxiety disorder, unspecified F41.9 Active 422684321 Problem Hypertension I10 Active 3532855 3 Problem Other bipolar disorder F31.89 Active 65003853 Problem Fibromyalgia M79.7 Active 9704236 7 Problem Panic disorder with agoraphobia F40.01 Active 93338497 Problem Chronic obstructive pulmonary disease, unspecified J44.9 Active 78078781 Problem Lumbago with sciatica, left side M54.42 Active 941310482 Problem Migraine without aura and without status migrain osus, not intractable G43.009 Active 166299614 Problem Lumbago with sciatica, right side M54.41 Active 069395459 Problem Fibrocystic disease of right breast N60.11 Active 35491318 Problem Other chronic pain G89.29 Active 8 7252725 Problem Fibrocystic disease of left breast N60.12 Active 22846117 Problem Irritable bowel syndrome with constipation K58.1 Active 382465896 Problem Arthritis M19.90 Active 9856564 Problem Abnormal mammogram of right breast R92.8 Active 075250776 Problem Daytime somnolence R40.0 Active 1 [id number] Problem Bipolar affective disorder, remission status unspecified F31.9 Active 50090613 Problem Chronic post-traumatic stress disorder (PTSD) F43. 12 Active 106898592 Problem Bipolar 1 disorder, depressed, moderate F31.32 Active 44183929 Problem Schizoaffective disorder, bipolar type F25.0 Active 41716579 Problem Irritable bowel syndrome with both constipation and diarrh ea K58.2 Active 32727411 Problem Slow transit constipation K59.01 Acti ve 38042483 Problem Essential tremor G25.0 Active 609 424952 Problem Acute non-recurrent maxillary sinusitis J01.00 Active 20065767 Problem Back pain M54.9 Active 424464176 Problem Bipolar 1 disorder, depressed, partial remission F 31.75 Active 72339260 Problem Attention deficit hyperactiv ity disorder (ADHD), predominantly inattentive type F90.0 Active 28420116 Problem Bipolar I disorder with depression F31.9 Active 54332860 Problem Panlobular emphysema J43.1 Active 9754710 Problem Akathisia G25.71 Active 454317947 Problem Mild persistent asthma without complication J45.30 Active 679514357 Problem Moderate persistent asthma without complication J4 5.40 Active 348687932 ALLERGIES No Information ENCOUNTERS Encounter Location Date Diagnosis [place] [address] [facility] [id number] [address] [place] [phone] Mar, [place] [address] [place] [id number] [address] [place] [address] Jan, [place] [address] [place] [id number] [address] [place] [phone] Jan, [place] [address] [place] [id number] [address] [place] [phone] Jan, Abnormal mammogram of right breast R92.8 [place] [address] [place] [id number] [address] [place] [address] Dec, Daytime somnolence R40.0 and Right otitis media with effusion H65.91 [place] [address] [facility] [id number] [address] [place] [address] Dec, [place] [address] [facility] [id number] [address] [place] [address] Dec, Cerebrovascular accident (CV A) due to occlusion of right cerebellar artery I63.541 [place] [address] [facility] [id number] [address] [place] [phone] Dec, [place] [address] [place] [id number] [address] [place] [address] Dec, [facility] [address] [facility] [id number] [address] [place] [address] Nov, Bipolar 1 disorder, depresse d, partial remission F31.75 and Panic disorder with agoraphobia F40.01 [facility] [address] [id number] [address] [place] [phone] Nov, Panlobular emphysema J43.1 [facility] [address] [id number] [address] [place] [id number] Nov, Cerebrovascular accident (CV A) due to occlusion of right cerebellar artery I63.541 and Acute non-recurrent maxillary sinusitis J01.00 [facility] [address] [id number] [address] [place] [phone] Nov, Panlobular emphysema J43.1 [facility] [address] [id number] [address] [place] [id number] Nov, [facility] [address] [id number] [address] [place] [phone] Nov, [facility] [address] [facility] [id number] [address] [place] [phone] Nov, [facility] [address] [id number] [address] [place] [address] Nov, [facility] [address] [facility] [id number] [address] [place] [phone] Nov, [facility] [address] [id number] [address] [place] [phone] Nov, [facility] [address] [facility] [id number] [address] [place] [id number] Nov, [facility] [address] [facility] [id number] [address] [place] [id number] Nov, Mild persistent asthma witho ut complication J45.30 and Irritable bowel syndrome with both constipation and diarrhea K58.2 [facility] [address] [id number] [address] [place] [phone] Nov, [facility] [address] [id number] [address] [place] [phone] Oct, [facility] [address] [id number] [address] [place] [phone] Oct, [facility] [address] [facility] [id number] [address] [place] [address] Oct, Type 2 diabetes mellitus wit h diabetic neuropathy, unspecified whether long winder tender insulin use E11.40 ; Diabetes E11.9 ; Slow transit constipation K59.01 ; Edema of both legs R60.0 and Dysfunction of right eustachian tube H69.81 [facility] [address] [id number] [address] [place] [address] Oct, Frequent headaches R51 [facility] [address] [id number] [address] [place] [phone] Oct, [facility] [address] [id number] [address] [place] [phone] Oct, [facility] [address] [facility] [id number] [address] [place] [phone] Oct, [facility] [address] [facility] [id number] [address] [place] [phone] Oct, [facility] [address] [id number] [address] [place] [phone] Oct, [facility] [address] [id number] [address] [place] [address] Oct, [facility] [address] [facility] [id number] [address] [place] [phone] Oct, [facility] [address] [facility] [id number] [address] [place] [phone] Oct, [facility] [address] [facility] [id number] [address] [place] [id number] September, Frequent headaches R51 [facility] [address] [facility] [id number] [address] [place] [address] September, Bilateral otitis media with effusion H65.93 ; Dizziness R42 and Essential tremor G25.0 [facility] [address] [facility] [id number] [address] [place] [id number] September, Chronic obstructive pulmonar y disease, unspecified COPD type J44.9 [facility] [address] [id number] [address] [place] [address] September, Chronic obstructive pulmonar y disease, unspecified COPD type J44.9 [facility] [address] [place] [id number] [address] [place] [id number] September, Migraine without aura and wi thout status migrainosus, not intractable G43.009 [facility] [address] [place] [id number] [address] [place] [address] September, [facility] [address] [place] [id number] [address] [place] [address] September, [facility] [address] [place] [id number] [address] [place] [id number] September, [facility] [address] [facility] [id number] [address] [place] [address] September, Frequent headaches R51 [facility] [address] [place] [id number] [address] [place] [address] Aug, [facility] [address] [facility] [id number] [address] [place] [address] Aug, Breast mass, right N63.10 [facility] [address] [place] [id number] [address] [place] [address] Aug, Breast lump N63.0 [facility] [address] [place] [id number] [address] [place] [id number] Aug, [facility] [address] [place] [id number] [address] [place] [id number] Aug, Bipolar affective disorder, remission status unspecified F31.9 and Diabetes E11.9 [place] [address] [id number] [address] [place] [address] Aug, Diabetes E11.9 ; Schizoaffec tive disorder, bipolar type F25.0 ; Pharyngitis due to other organism J02.8 ; Panlobular emphysema J43.1 and Irritable bowel syndrome with both constipation and diarrhea K58.2 [place] [address] [id number] [address] [place] [phone] Aug, Abnormal mammogram R92.8 [place] [address] [id number] [address] [place] [address] Aug, [place] [address] [facility] [id number] [address] [place] [address] Aug, Bipolar 1 disorder, depresse d, moderate F31.32 ; Panic disorder with agoraphobia F40.01 and Chronic post-traumatic stress disorder (PTSD) F43.12 [place] [address] [id number] [address] [place] [address] Aug, [place] [address] [id number] [address] [place] [phone] Aug, [place] [address] [id number] [address] [place] [phone] Aug, [place] [address] [id number] [address] [place] [id number] Jul, [place] [address] [id number] [address] [place] [address] Jul, Mild persistent asthma witho ut complication J45.30 [place] [address] [id number] [address] [place] [id number] 19 Jul, 2017 Mild persistent asthma witho ut complication J45.30 [place] [address] [id number] [address] [place] [phone] Jul, Bipolar affective disorder, remission status unspecified F31.9 ; Diabetes E11.9 and Irritable bowel syndrome with constipation K58.1 [facility] [address] [id number] [address] [place] [id number] 13 Jul, 2017 [facility] [address] [id number] [address] [place] [id number] Jul, [facility] [address] [id number] [address] [place] [address] Jul, Frequent headaches R51 [facility] [address] [facility] [id number] [address] [place] [phone] Jul, [facility] [address] [facility] [id number] [address] [place] [address] Jul, [facility] [address] [facility] [id number] [address] [place] [id number] Jul, [facility] [address] [facility] [id number] [address] [place] [address] Jul, Frequent headaches R51 ; Fib rocystic disease of left breast N60.12 ; Fibrocystic disease of right breast N60.11 and Diabetes E11.9 [facility] [address] [facility] [id number] [address] [place] [phone] Jul, [facility] [address] [facility] [id number] [address] [place] [address] Jul, [facility] [address] [facility] [id number] [address] [place] [address] Jun, Exudative tonsillitis J03.90 [facility] [address] [facility] [id number] [address] [place] [phone] Jun, [facility] [address] [facility] [id number] [address] [place] [id number] Jun, [facility] [address] [facility] [id number] [address] [place] [address] Jun, Mild persistent asthma witho ut complication J45.30 ; Chronic obstructive pulmonary disease, unspecified COPD type J44.9 and Exudative tonsillitis J03.90 [facility] [address] [id number] 13 Jun, 2017 Encounter for immunization Z 23 [facility] [address] [id number] 12 Jun, 2017 [facility] [address] [address] Jun, [facility] [address] [id number] Jun, [facility] [address] [address] 06 Jun, 2017 Tonsillitis J03.90 [facility] [address] [address] 05 Jun, 2017 [facility] [address] [address] 03 Jun, 2017 Acute non-recurrent maxillar y sinusitis J01.00 [place] [address] [address] 02 Jun, 2017 [facility] [address] [address] May, [facility] [address] [address] May, [facility] [address] [address] May, GERD (gastroesophageal reflu x disease) K21.9 [facility] [address] [address] May, Migraine without aura and wi thout status migrainosus, not intractable G43.009 [facility] [address] [address] May, [facility] [address] [facility] [id number] [address] [place] [address] May, [facility] [address] [facility] [id number] [address] [place] [address] May, Panlobular emphysema J43.1 a nd Acute non-recurrent maxillary sinusitis J01.00 [facility] [address] [facility] [id number] [address] [place] [address] May, Bipolar 1 disorder, depresse d, moderate F31.32 ; Panic disorder with agoraphobia F40.01 and Akathisia G25.71 [place] [address] [facility] [id number] [address] [place] [address] Apr, [facility] [address] [facility] [id number] [address] [place] [address] Apr, [facility] [address] [facility] [id number] [address] [place] [address] Apr, Acute non-recurrent maxillar y sinusitis J01.00 [facility] [address] [facility] [id number] [address] [place] [address] 07 Apr, 2017 Panlobular emphysema J43.1 [facility] [address] [facility] [id number] [address] [place] [address] Apr, [facility] [address] [facility] [id number] [address] [place] [id number] 04 Apr, 2017 Exudative tonsillitis J03.90 and Sore throat J02.9 [facility] [address] [facility] [id number] [address] [place] [address] Mar, [facility] [address] [facility] [id number] [address] [place] [address] 15 Mar, 2017 Acute non-recurrent maxillar y sinusitis J01.00 [facility] [address] [facility] [id number] [address] [place] [address] Mar, [facility] [address] [facility] [id number] [address] [place] [address] 09 Mar, 2017 Panlobular emphysema J43.1 a nd Diabetes E11.9 [facility] [address] [facility] [id number] [address] [place] [id number] 06 Mar, 2017 [facility] [address] [facility] [id number] [address] [place] [address] Feb, Wheezing R06.2 and Acute rec urrent pansinusitis J01.41 [facility] [address] [facility] [id number] [address] [place] [address] Feb, [facility] [address] [facility] [id number] [address] [place] [address] Feb, Acute non-recurrent maxillar y sinusitis J01.00 [facility] [address] [facility] [id number] [address] [place] [address] Feb, Chronic obstructive pulmonar y disease, unspecified J44.9 [facility] [address] [facility] [id number] [address] [place] [address] Feb, Hypoxemia R09.02 and Chronic obstructive pulmonary disease, unspecified J44.9 [facility] [address] [place] [id number] [address] [place] [address] 28 Jan, 2017 Bipolar 1 disorder, depresse d, moderate F31.32 ; Panic disorder with agoraphobia F40.01 ; Chronic post-traumatic stress disorder (PTSD) F43.12 ; Diabetes E11.9 and Moderate persistent asthma without complication J45.40 [facility] [address] [facility] [id number] [address] [place] [address] Jan, [facility] [address] [place] [id number] [address] [place] [id number] 19 Jan, 2017 Acute non-recurrent maxillar y sinusitis J01.00 [facility] [address] [place] [id number] [address] [place] [address] Jan, [facility] [address] [id number] [address] [place] [address] Jan, [facility] [address] [id number] [address] [place] [address] Jan, Moderate persistent asthma w ithout complication J45.40 and Hypoxemia R09.02 [facility] [address] [id number] [address] [place] [id number] Jan, Moderate persistent asthma w ithout complication J45.40 and Hypoxemia R09.02 [facility] [address] [id number] [address] [place] [address] Jan, [facility] [address] [id number] [address] [place] [id number] Dec, Acute non-recurrent maxillar y sinusitis J01.00 [facility] [address] [id number] [address] [place] [address] Dec, Chronic obstructive pulmonar y disease, unspecified J44.9 [facility] [address] [id number] [address] [place] [address] Dec, [facility] [address] [id number] [address] [place] [address] Dec, Mild persistent asthma witho ut complication J45.30 and Other chronic pain G89.29 [facility] [address] [id number] [address] [place] [id number] Nov, [facility] [address] [id number] [address] [place] [id number] Nov, Acute non-recurrent maxillar y sinusitis J01.00 [facility] [address] [id number] [address] [place] [address] Nov, [facility] [address] [id number] [address] [place] [address] Nov, [facility] [address] [id number] [address] [place] [address] Oct, [facility] [address] [facility] [id number] [address] [place] [id number] Oct, Bipolar 1 disorder, depresse d, partial remission F31.75 ; Panic disorder with agoraphobia F40.01 and Chronic post-traumatic stress disorder (PTSD) F43.12 [place] [address] [place] [id number] [address] [place] [address] Oct, Acute non-recurrent maxillar y sinusitis J01.00 [place] [address] [place] [id number] [address] [place] [address] Oct, [place] [address] [place] [id number] [address] [place] [address] Oct, Diabetes E11.9 [place] [address] [place] [id number] [address] [place] [address] September, Diabetes E11.9 [place] [address] [place] [id number] [address] [place] [address] September, Diabetes E11.9 and Sinus tac hycardia R00.0 [place] [address] [place] [id number] [address] [place] [address] September, [place] [address] [place] [id number] [address] [place] [address] September, [place] [address] [place] [id number] [address] [place] [address] Aug, Diabetes E11.9 and Lumbago w ith sciatica, right side M54.41 [place] [address] [place] [id number] [address] [place] [address] Aug, [place] [address] [place] [id number] [address] [place] [address] Jul, Bipolar 1 disorder, depresse d, moderate F31.32 ; Panic disorder with agoraphobia F40.01 and Chronic post-traumatic stress disorder (PTSD) F43.12 [facility] [address] [facility] [id number] [address] [place] [address] Jul, Sore throat J02.9 [facility] [address] [facility] [id number] [address] [place] [id number] 16 Jul, 2016 [facility] [address] [facility] [id number] [address] [place] [id number] Jul, [facility] [address] [facility] [id number] [address] [place] [id number] Jul, [facility] [address] [facility] [id number] [address] [place] [address] Jul, [facility] [address] [facility] [id number] [address] [place] [address] Jul, Sore throat J02.9 and Pharyn gitis, unspecified etiology J02.9 [facility] [address] [facility] [id number] [address] [place] [id number] 27 Jun, 2016 [facility] [address] [facility] [id number] [address] [place] [id number] 23 Jun, 2016 Diabetes E11.9 [facility] [address] [facility] [id number] [address] [place] [phone] 20 Jun, 2016 [facility] [address] [facility] [id number] [address] [place] [id number] 16 Jun, 2016 [facility] [address] [facility] [id number] [address] [place] [id number] Jun, [facility] [address] [facility] [id number] [address] [place] [phone] Jun, [facility] [address] [facility] [id number] [address] [place] [id number] 16 Jun, 2016 [facility] [address] [facility] [id number] [address] [place] [id number] 15 Jun, 2016 [facility] [address] [place] [id number] [address] [place] [id number] 10 Jun, 2016 [place] [address] [facility] [id number] [address] [place] [id number] Jun, [place] [address] [place] [id number] [address] [place] [id number] May, Diabetes E11.9 ; Other chron ic pain G89.29 ; Acute recurrent maxillary sinusitis J01.01 ; Bipolar I disorder with depression F31.9 and Anxiety disorder, unspecified F41.9 [place] [address] [place] [id number] [address] [place] [id number] May, [place] [address] [place] [id number] [address] [place] [id number] May, Diabetes E11.9 ; Bipolar I d isorder with depression F31.9 ; Anxiety disorder, unspecified F41.9 ; Other chronic pain G89.29 and Acute recurrent maxillary sinusitis J01.01 [place] [id number] [place] [address] May, [place] [address] [place] [id number] [address] [place] [address] May, Attention deficit hyperactiv ity disorder (ADHD), predominantly inattentive type F90.0 [place] [address] [address] May, [place] [address] [place] [id number] [address] [place] [address] Apr, Attention deficit hyperactiv ity disorder (ADHD), predominantly inattentive type F90.0 and Non-seasonal allergic rhinitis due to other allergic trigger J30.89 [place] [address] [place] [id number] [address] [place] [address] 15 Apr, 2016 Bipolar 1 disorder, depresse d, moderate F31.32 ; Panic disorder with agoraphobia F40.01 and Chronic post-traumatic stress disorder (PTSD) F43.12 [place] [address] [facility] [id number] [address] [place] [address] Apr, Dental examination Z01.20 [place] [address] [id number] [address] [place] [address] Mar, [place] [address] [facility] [id number] [address] [place] [address] Mar, [place] [address] [facility] [id number] [address] [place] [address] Mar, Bipolar I disorder with depr ession F31.9 and Anxiety disorder, unspecified F41.9 [place] [address] [facility] [id number] [address] [place] [address] Mar, Panic disorder with agorapho syd F40.01 ; Bipolar 1 disorder, depressed, moderate F31.32 and Chronic post-traumatic stress disorder (PTSD) F43.12 [place] [address] [place] [id number] [address] [place] [address] Mar, [place] [address] [facility] [id number] [address] [place] [address] Mar, Dental caries K02.9 [place] [address] [facility] [id number] [address] [place] [address] 24 Feb, 2016 Lumbago with sciatica, left side M54.42 ; Lumbago with sciatica, right side M54.41 and Other chronic pain G89.29 [place] [address] [facility] [id number] [address] [place] [address] Feb, [place] [address] [facility] [id number] [address] [place] [address] Feb, [place] [address] [facility] [id number] [address] [place] [address] Feb, Bipolar I disorder with depr ession F31.9 ; PTSD (post-traumatic stress disorder) F43.10 and Mood disorder F39 [place] [address] [facility] [id number] [address] [place] [address] Feb, [facility] [address] [place] [id number] [address] [place] [address] Feb, Dental examination Z01.20 [facility] [id number] [place] [address] 07 Feb, 2016 [facility] [address] [address] Feb, Acute bronchitis, unspecifie d organism J20.9 [facility] [address] [address] Jan, Mood disorder F39 ; Migraine without aura and without status migrainosus, not intractable G43.009 ; Irritable bowel syndrome, unspecified type K58.9 ; Diabetes E11.9 and Encounter for immunization Z23 [place] [address] [address] 15 Jan, 2016 [place] [address] [address] Jan, [place] [address] [address] Jan, [place] [address] [address] Jan, [place] [address] [address] Jan, [facility] [address] [address] Dec, Bipolar I disorder with depr ession F31.9 ; PTSD (post-traumatic stress disorder) F43.10 and Panic disorder with agoraphobia F40.01 [place] [address] [place] [id number] [address] [place] [address] Dec, Chronic obstructive pulmonar y disease, unspecified COPD type J44.9 ; Tremor R25.1 and Anxiety F41.9 [place] [address] [id number] [address] [place] [address] Dec, [facility] [address] [id number] [address] [place] [address] Nov, Tremors of nervous system R2 5.1 and Cramping of feet R25.2 [facility] [address] [id number] [address] [place] [address] Nov, [facility] [address] [id number] [address] [place] [address] Nov, [facility] [address] [id number] [address] [place] [address] Oct, Chronic obstructive pulmonar y disease, unspecified J44.9 [facility] [address] [facility] [id number] [address] [place] [address] Oct, [facility] [address] [facility] [id number] [address] [place] [address] Oct, Tremor R25.1 [facility] [address] [id number] [address] [place] [address] Oct, Bipolar I disorder with depr ession F31.9 ; Diabetes E11.9 ; PTSD (post-traumatic stress disorder) F43.10 and Panic disorder with agoraphobia F40.01 [facility] [address] [id number] [address] [place] [address] Oct, Mood disorder F39 [facility] [address] [id number] [address] [place] [address] September, [facility] [address] [id number] [address] [place] [address] September, Diabetes E11.9 ; Bipolar I d isorder with depression F31.9 ; PTSD (post-traumatic stress disorder) F43.10 and Panic disorder with agoraphobia F40.01 [facility] [address] [facility] [id number] [address] [place] [address] September, Mood disorder F39 ; Schizoaf fective disorder, unspecified type F25.9 ; Arthritis M19.90 ; Tremor R25.1 ; Acute non-recurrent frontal sinusitis J01.10 and Blood in stool K92.1 [facility] [address] [id number] [address] [place] [address] September, [facility] [address] [facility] [id number] [address] [place] [address] September, Chronic obstructive pulmonar y disease, unspecified J44.9 [facility] [address] [facility] [id number] [address] [place] [address] September, Diabetes E11.9 [place] [id number] [facility] [id number] [address] [place] [address] Aug, Other bipolar disorder F31.8 9 and Anxiety disorder, unspecified F41.9 [facility] [address] [facility] [id number] [address] [place] [address] Aug, [facility] [address] [facility] [id number] [address] [place] [address] Aug, Diabetes E11.9 [facility] [address] [facility] [id number] [address] [place] [address] 18 Aug, 2015 [facility] [address] [facility] [id number] [address] [place] [address] 14 Aug, 2015 Diabetes E11.9 ; Fatigue R53 .83 and Dizziness R42 [facility] [address] [id number] [address] [place] [address] 13 Aug, 2015 Other bipolar disorder F31.8 9 [facility] [address] [facility] [id number] [address] [place] [address] 07 Aug, 2015 Generalized anxiety disorder F41.1 [facility] [address] [facility] [id number] [address] [place] [address] 07 Aug, 2015 Other bipolar disorder F31.8 9 and Anxiety disorder, unspecified F41.9 [facility] [address] [facility] [id number] [address] [place] [address] Aug, [facility] [address] [facility] [id number] [address] [place] [address] Jul, [facility] [address] [facility] [id number] [address] [place] [address] Jul, [facility] [address] [facility] [id number] [address] [place] [address] Jul, Bronchitis J40 [facility] [address] [facility] [id number] [address] [place] [address] Jul, Anxiety disorder F41.9 [facility] [address] [facility] [id number] [address] [place] [address] Jul, Other bipolar disorder F31.8 9 and Anxiety disorder, unspecified F41.9 [facility] [address] [facility] [id number] [address] [place] [address] Jul, Other bipolar disorder F31.8 9 and Fibromyalgia M79.7 [facility] [address] [facility] [id number] [address] [place] [address] Jul, [facility] [address] [facility] [id number] [address] [place] [address] Jul, [facility] [address] [facility] [id number] [address] [place] [address] Jul, [facility] [address] [facility] [id number] [address] [place] [address] Jul, Other bipolar disorder F31.8 9 and Anxiety disorder, unspecified F41.9 [facility] [address] [facility] [id number] [address] [place] [address] Jun, GERD (gastroesophageal reflu x disease) K21.9 [facility] [address] [facility] [id number] [address] [place] [address] Jun, [facility] [address] [facility] [id number] [address] [place] [address] May, [facility] [address] [facility] [id number] [address] [place] [address] May, Diabetes E11.9 ; Back pain M 54.9 ; GERD (gastroesophageal reflux disease) K21.9 ; Hypertension I10 and Peripheral neuropathy G62.9 [facility] [address] [facility] [id number] [address] [place] [address] Mar, [facility] [address] [place] [id number] [place] [address] Mar, [facility] [address] [place] [id number] [place] [address] Mar, Acute sinusitis J01.90 and O titis media, left H66.92 [facility] [address] [place] [id number] [address] [place] [address] Feb, [facility] [address] [place] [id number] [address] [place] [address] Feb, [facility] [address] [place] [id number] [address] [place] [address] Feb, [facility] [address] [place] [id number] [place] [address] Feb, [facility] [address] [place] [id number] [address] [place] [address] Jan, [facility] [address] [place] [id number] [address] [place] [address] Jan, Diabetes 250.00 and Back higinio n 724.5 [facility] [address] [facility] [id number] [address] [place] [address] Jan, [facility] [address] [place] [id number] [place] [address] Dec, Diabetes 250.00 ; Benign ess ential hypertension 401.1 and Allergic rhinitis 477.9 [facility] [address] [place] [id number] [address] [place] [address] Dec, [facility] [address] [id number] [address] [place] [address] Dec, [facility] [address] [facility] [id number] [address] [place] [address] Dec, Psychosis 298.9 [facility] [address] [facility] [id number] [address] [place] [id number] Dec, Medication side effect 995.2 0 and Generalized anxiety disorder 300.02 [facility] [address] [id number] [address] [place] [address] Dec, Acquired cognitive dysfuncti on 294.9 [facility] [address] [facility] [id number] [address] [place] [address] Dec, [facility] [address] [facility] [id number] [address] [place] [address] Dec, Unspecified myalgia and myos itis 729.1 and Generalized anxiety disorder 300.02 [facility] [address] [facility] [id number] [address] [place] [address] Nov, [facility] [address] [facility] [id number] [address] [place] [address] Nov, [facility] [address] [facility] [id number] [address] [place] [address] Nov, [facility] [address] [facility] [id number] [address] [place] [address] Nov, Upper respiratory infection 465.9 and Chronic airway obstruction, not elsewhere classified 496 [facility] [address] [id number] [address] [place] [address] Nov, Hyponatremia 276.1 [facility] [address] [facility] [id number] [address] [place] [address] Oct, [facility] [address] [facility] [id number] [address] [place] [address] Oct, [facility] [address] [id number] [address] [place] [address] Oct, [facility] [address] [facility] [id number] [address] [place] [address] Oct, [facility] [address] [facility] [id number] [address] [place] [address] 04 Oct, 2014 Hyponatremia 276.1 [facility] [address] [facility] [id number] [address] [place] [address] Oct, [facility] [address] [facility] [id number] [address] [place] [address] Oct, [facility] [address] [facility] [id number] [address] [place] [address] Oct, Generalized anxiety disorder 300.02 [facility] [address] [facility] [id number] [address] [place] [address] Oct, Generalized anxiety disorder 300.02 and Diabetes 250.00 [facility] [address] [id number] [address] [place] [address] Aug, [facility] [address] [facility] [id number] [address] [place] [address] Aug, [facility] [address] [facility] [id number] [address] [place] [address] Jul, [facility] [address] [facility] [id number] [address] [place] [address] Jul, [facility] [address] [facility] [id number] [address] [place] [address] Jun, [facility] [address] [facility] [id number] [address] [place] [address] Jun, [facility] [address] [facility] [id number] [address] [place] [address] Jun, [facility] [address] [facility] [id number] [address] [place] [address] Jun, [facility] [address] [id number] [address] [place] [address], [place] [address] Jun, [facility] [address] [id number] [address] [place] [address], [place] [address] May, [facility] [address] [id number] [address] [place] [address], [place] [address] May, [facility] [address] [id number] [address] [place] [address], [place] [address] Apr, [facility] [address] [id number] [address] [place] [address], [place] [address] Apr, [facility] [address] [id number] [address] [place] [address], [place] [address] Apr, [facility] [address] [id number] [address] [place] [address], [place] [address] Apr, [facility] [address] [id number] [address] [place] [address], [place] [address] Apr, [facility] [address] [id number] [address] [place] [address], [place] [address] Apr, [facility] [address] [id number] [address] [place] [address], [place] [address] Apr, [facility] [address] [id number] [address] [place] [address], [place] [address] Apr, [facility] [address] [id number] [address] [place] [address] Feb, [facility] [address] [id number] [address] [place] [address], [place] [address] Feb, [facility] [address] [id number] [address] [place] [address], [place] [address] Jan, [facility] [address] [id number] [address] [place] [address], [place] [address] 06 Jan, 2013 [facility] [address] [id number] [address] [place] [address], [place] [address] Dec, [facility] [address] [id number] [address] [place] [address], [place] [address] Dec, [facility] [address] [id number] [address] [place] [address], [place] [address] Dec, [facility] [address] [id number] [address] [place] [address], [place] [address] Nov, [facility] [address] [id number] [address] [place] [address], [place] [address] Nov, [facility] [address] [id number] [address] [place] [address], [place] [address] Nov, [facility] [address] [id number] [address] [place] [address], [place] [address] Oct, [facility] [address] [id number] [address] [place] [address], [place] [address] Oct, [facility] [address] [id number] [address] [place] [address], [place] [address] Oct, [facility] [address] [id number] [address] [place] [address], [place] [address] September, [facility] [address] [id number] [address] [place] [address], [place] [address] September, [facility] [address] [id number] [address] [place] [address], [place] [address] September, [facility] [address] [id number] [address] [place] [address], [place] [address] Aug, [facility] [address] [id number] [address] [place] [address], [place] [address] Aug, [facility] [address] [id number] [address] [place] [address], [place] [address] Aug, [facility] [address] [id number] [address] [place] [address], [place] [address] 16 Aug, 2011 [facility] [address] [id number] [address] [place] [address], [place] [address] Jul, [facility] [address] [id number] [address] [place] [address], [place] [address] Jun, [facility] [address] [id number] [address] [place] [address], [place] [address] 14 Jun, 2011 [facility] [address] [id number] [address] [place] [address], [place] [address] 13 Jun, 2011 [facility] [address] [id number] [address] [place] [address], [place] [address] 07 Jun, 2011 [facility] [address] [id number] [address] [place] [address], [place] [address] 03 Jun, 2011 [facility] [address] [id number] [address] [place] [address], [place] [address] May, [facility] [address] [id number] [address] [place] [address], [place] [address] May, [facility] [address] [id number] [address] [place] [address], [place] [address] May, [facility] [address] [id number] [address] [place] [address], [place] [address] 04 May, 2011 [facility] [address] [id number] [address] [place] [address], [place] [address] Apr, [facility] [address] [id number] [address] [place] [address], [place] [address] Apr, [facility] [address] [id number] [address] [place] [address], [place] [address] 05 Apr, 2011 [facility] [address] [id number] [address] [place] [address], [place] [address] Mar, [facility] [address] [id number] [address] [place] [address], [place] [address] Mar, [facility] [address] [id number] [address] [place] [phone] Mar, [facility] [address] [id number] [address] [place] [phone] Feb, [facility] [address] [id number] [address] [place] [phone] Feb, [facility] [address] [id number] [address] [place] [phone] Feb, [facility] [address] [id number] [address] [place] [phone] Nov, [facility] [address] [id number] [address] [place] [phone] September, [facility] [address] [id number] [address] [place] [id number] Aug, [facility] [address] [id number] [address] [place] [phone] Jul, [facility] [address] [id number] [address] [place] [phone] May, [facility] [address] [id number] [address] [place] [phone] Apr, [facility] [address] [id number] [address] [place] [phone] Apr, [facility] [address] [id number] [address] [place] [phone] Apr, [facility] [address] [id number] [address] [place] [id number] Apr, [facility] [address] [id number] [address] [place] [phone] Apr, IMMUNIZATIONS No Known Immunizations SOCIAL HISTORY Never Assessed REASON FOR VISIT Prior Authorization Request PLAN OF CARE VITAL SIGNS MEDICATIONS Medication Instructions Dosage Frequency Start Date End Date Duration S tatus Pulmicort Flexhaler 90 MCG/ACT Inhalation 2 times a day 1 puff 12 h Dec, Active RESULTS No Results PROCEDURES No Known [...]
--- OUTSIDE RECORDS SUMMARY | 2019-07-17 11:27 | XMS REPORT ---
Author Author Sujey GANDHI Organization [facility] Address [address] [place] [address] Care Team Providers Care Border Machine Operator Name Role Phone WHIT GANDHI Unavailable PROBLEMS Type Condition ICD9-CM Code IHN12-LI Code Onset Dates Condition S tatus SNOMED Code Problem Diabetes E11.9 Active 70373246 Problem GERD (gastroesophageal reflux disease) K21.9 Active 770201072 Problem Anxiety disorder, unspecified F41.9 Active 163271975 Problem Hypertension I10 Active 7379264 3 Problem Other bipolar disorder F31.89 Active 73137464 Problem Fibromyalgia M79.7 Active 4161500 7 Problem Panic disorder with agoraphobia F40.01 Active 39512772 Problem Chronic obstructive pulmonary disease, unspecified J44.9 Active 11054010 Problem Lumbago with sciatica, left side M54.42 Active 312508950 Problem Migraine without aura and without status migrain osus, not intractable G43.009 Active 162687411 Problem Lumbago with sciatica, right side M54.41 Active 972326598 Problem Fibrocystic disease of right breast N60.11 Active 02623098 Problem Other chronic pain G89.29 Active 8 5235100 Problem Fibrocystic disease of left breast N60.12 Active 08853138 Problem Irritable bowel syndrome with constipation K58.1 Active 239054706 Problem Arthritis M19.90 Active 5959248 Problem Abnormal mammogram of right breast R92.8 Active 015764841 Problem Daytime somnolence R40.0 Active 1 06597966360 Problem Bipolar affective disorder, remission status unspecified F31.9 Active 95548969 Problem Chronic post-traumatic stress disorder (PTSD) F43. 12 Active 733510467 Problem Bipolar 1 disorder, depressed, moderate F31.32 Active 20601369 Problem Schizoaffective disorder, bipolar type F25.0 Active 46724126 Problem Irritable bowel syndrome with both constipation and diarrh ea K58.2 Active 28932878 Problem Slow transit constipation K59.01 Acti ve 98782063 Problem Essential tremor G25.0 Active 609 689679 Problem Acute non-recurrent maxillary sinusitis J01.00 Active 98818793 Problem Back pain M54.9 Active 179457418 Problem Bipolar 1 disorder, depressed, partial remission F 31.75 Active 36137520 Problem Attention deficit hyperactiv ity disorder (ADHD), predominantly inattentive type F90.0 Active 17669509 Problem Bipolar I disorder with depression F31.9 Active 38977214 Problem Panlobular emphysema J43.1 Active 5937488 Problem Akathisia G25.71 Active 776384842 Problem Mild persistent asthma without complication J45.30 Active 942665837 Problem Moderate persistent asthma without complication J4 5.40 Active 032578062 ALLERGIES No Information ENCOUNTERS Encounter Location Date Diagnosis [place] [address] [facility] [id number] [address] [place] [phone] Mar, [place] [address] [place] [id number] [address] [place] [phone] Jan, [place] [address] [place] [id number] [address] [place] [phone] Jan, [place] [address] [place] [id number] [address] [place] [phone] Jan, Abnormal mammogram of right breast R92.8 [place] [address] [place] [id number] [address] [place] [phone] Dec, Daytime somnolence R40.0 and Right otitis media with effusion H65.91 [place] [id number] [facility] [id number] [address] [place] [id number] Dec, [place] [address] [facility] [id number] [address] [place] [phone] Dec, Cerebrovascular accident (CV A) due to occlusion of right cerebellar artery I63.541 [place] [address] [facility] [id number] [address] [place] [phone] Dec, [place] [address] [place] [id number] [address] [place] [phone] Dec, [facility] [address] [facility] [id number] [address] [place] [phone] Nov, Bipolar 1 disorder, depresse d, partial remission F31.75 and Panic disorder with agoraphobia F40.01 [facility] [address] [id number] [address] [place] [phone] Nov, Panlobular emphysema J43.1 [facility] [address] [id number] [address] [place] [id number] Nov, Cerebrovascular accident (CV A) due to occlusion of right cerebellar artery I63.541 and Acute non-recurrent maxillary sinusitis J01.00 [facility] [address] [id number] [address] [place] [id number] Nov, Panlobular emphysema J43.1 [facility] [address] [id number] [address] [place] [phone] Nov, [facility] [address] [id number] [address] [place] [id number] Nov, [facility] [address] [facility] [id number] [address] [place] [phone] Nov, [facility] [address] [id number] [address] [place] [phone] Nov, [facility] [address] [facility] [id number] [address] [place] [id number] Nov, [facility] [address] [id number] [address] [place] [phone] Nov, [facility] [address] [facility] [id number] [address] [place] [id number] Nov, [facility] [address] [facility] [id number] [address] [place] [id number] Nov, Mild persistent asthma witho ut complication J45.30 and Irritable bowel syndrome with both constipation and diarrhea K58.2 [facility] [address] [id number] [address] [place] [id number] Nov, [facility] [address] [id number] [address] [place] [phone] Oct, [facility] [address] [id number] [address] [place] [phone] Oct, [facility] [address] [facility] [id number] [address] [place] [id number] Oct, Type 2 diabetes mellitus wit h diabetic neuropathy, unspecified whether long term care administrator insulin use E11.40 ; Diabetes E11.9 ; Slow transit constipation K59.01 ; Edema of both legs R60.0 and Dysfunction of right eustachian tube H69.81 [facility] [address] [id number] [address] [place] [phone] Oct, Frequent headaches R51 [facility] [address] [id number] [address] [place] [phone] Oct, [facility] [address] [id number] [address] [place] [phone] Oct, [facility] [address] [facility] [id number] [address] [place] [phone] Oct, [facility] [address] [facility] [id number] [address] [place] [phone] Oct, [facility] [address] [id number] [address] [place] [phone] Oct, [facility] [address] [id number] [address] [place] [phone] Oct, [facility] [address] [facility] [id number] [address] [place] [phone] Oct, [facility] [address] [facility] [id number] [address] [place] [phone] Oct, [facility] [address] [facility] [id number] [address] [place] [phone] September, Frequent headaches R51 [facility] [address] [facility] [id number] [address] [place] [id number] September, Bilateral otitis media with effusion H65.93 ; Dizziness R42 and Essential tremor G25.0 [facility] [address] [facility] [id number] [address] [place] [phone] September, Chronic obstructive pulmonar y disease, unspecified COPD type J44.9 [facility] [address] [id number] [address] [place] [id number] September, Chronic obstructive pulmonar y disease, unspecified COPD type J44.9 [facility] [address] [place] [id number] [address] [place] [id number] September, Migraine without aura and wi thout status migrainosus, not intractable G43.009 [facility] [address] [place] [id number] [address] [place] [phone] September, [facility] [address] [place] [id number] [address] [place] [id number] September, [facility] [address] [place] [id number] [address] [place] [phone] September, [facility] [address] [facility] [id number] [address] [place] [id number] September, Frequent headaches R51 [facility] [address] [place] [id number] [address] [place] [phone] Aug, [facility] [address] [facility] [id number] [address] [place] [id number] Aug, Breast mass, right N63.10 [facility] [address] [place] [id number] [address] [place] [phone] Aug, Breast lump N63.0 [facility] [address] [place] [id number] [address] [place] [phone] Aug, [facility] [address] [place] [id number] [address] [place] [id number] Aug, Bipolar affective disorder, remission status unspecified F31.9 and Diabetes E11.9 [place] [address] [id number] [address] [place] [id number] Aug, Diabetes E11.9 ; Schizoaffec tive disorder, bipolar type F25.0 ; Pharyngitis due to other organism J02.8 ; Panlobular emphysema J43.1 and Irritable bowel syndrome with both constipation and diarrhea K58.2 [place] [address] [id number] [address] [place] [phone] Aug, Abnormal mammogram R92.8 [place] [address] [id number] [address] [place] [phone] Aug, [place] [address] [facility] [id number] [address] [place] [id number] Aug, Bipolar 1 disorder, depresse d, moderate F31.32 ; Panic disorder with agoraphobia F40.01 and Chronic post-traumatic stress disorder (PTSD) F43.12 [place] [address] [id number] [address] [place] [phone] Aug, [place] [address] [id number] [address] [place] [phone] Aug, [place] [address] [id number] [address] [place] [phone] Aug, [place] [address] [id number] [address] [place] [phone] Jul, [place] [address] [id number] [address] [place] [id number] Jul, Mild persistent asthma witho ut complication J45.30 [place] [address] [id number] [address] [place] [id number] 19 Jul, 2017 Mild persistent asthma witho ut complication J45.30 [place] [address] [id number] [address] [place] [id number] Jul, Bipolar affective disorder, remission status unspecified F31.9 ; Diabetes E11.9 and Irritable bowel syndrome with constipation K58.1 [facility] [address] [id number] [address] [place] [id number] 13 Jul, 2017 [facility] [address] [id number] [address] [place] [id number] Jul, [facility] [address] [id number] [address] [place] [id number] Jul, Frequent headaches R51 [facility] [address] [facility] [id number] [address] [place] [phone] Jul, [facility] [address] [facility] [id number] [address] [place] [phone] Jul, [facility] [address] [facility] [id number] [address] [place] [phone] Jul, [facility] [address] [facility] [id number] [address] [place] [id number] Jul, Frequent headaches R51 ; Fib rocystic disease of left breast N60.12 ; Fibrocystic disease of right breast N60.11 and Diabetes E11.9 [facility] [address] [facility] [id number] [address] [place] [id number] Jul, [facility] [address] [facility] [id number] [address] [place] [id number] Jul, [facility] [address] [facility] [id number] [address] [place] [id number] Jun, Exudative tonsillitis J03.90 [facility] [address] [facility] [id number] [address] [place] [id number] Jun, [facility] [address] [facility] [id number] [address] [place] [phone] Jun, [facility] [address] [facility] [id number] [address] [place] [id number] Jun, Mild persistent asthma witho ut complication J45.30 ; Chronic obstructive pulmonary disease, unspecified COPD type J44.9 and Exudative tonsillitis J03.90 [facility] [address] [id number] 13 Jun, 2017 Encounter for immunization Z 23 [facility] [address] [id number] 12 Jun, 2017 [facility] [address] [address] Jun, [facility] [address] [id number] Jun, [facility] [address] [id number] 06 Jun, 2017 Tonsillitis J03.90 [facility] [address] [id number] 05 Jun, 2017 [facility] [address] [address] 03 Jun, 2017 Acute non-recurrent maxillar y sinusitis J01.00 [place] [address] [address] 02 Jun, 2017 [facility] [address] [id number] May, [facility] [address] [address] May, [facility] [address] [phone] May, GERD (gastroesophageal reflu x disease) K21.9 [facility] [address] [address] May, Migraine without aura and wi thout status migrainosus, not intractable G43.009 [facility] [address] [id number] May, [facility] [address] [facility] [id number] [address] [place] [phone] May, [facility] [address] [facility] [id number] [address] [place] [id number] May, Panlobular emphysema J43.1 a nd Acute non-recurrent maxillary sinusitis J01.00 [facility] [address] [facility] [id number] [address] [place] [id number] May, Bipolar 1 disorder, depresse d, moderate F31.32 ; Panic disorder with agoraphobia F40.01 and Akathisia G25.71 [place] [address] [facility] [id number] [address] [place] [phone] Apr, [facility] [address] [facility] [id number] [address] [place] [id number] Apr, [facility] [address] [facility] [id number] [address] [place] [id number] Apr, Acute non-recurrent maxillar y sinusitis J01.00 [facility] [address] [facility] [id number] [address] [place] [id number] 07 Apr, 2017 Panlobular emphysema J43.1 [facility] [address] [facility] [id number] [address] [place] [id number] Apr, [facility] [address] [facility] [id number] [address] [place] [id number] 04 Apr, 2017 Exudative tonsillitis J03.90 and Sore throat J02.9 [facility] [address] [facility] [id number] [address] [place] [phone] Mar, [facility] [address] [facility] [id number] [address] [place] [id number] 15 Mar, 2017 Acute non-recurrent maxillar y sinusitis J01.00 [facility] [address] [facility] [id number] [address] [place] [phone] Mar, [facility] [address] [facility] [id number] [address] [place] [phone] 09 Mar, 2017 Panlobular emphysema J43.1 a nd Diabetes E11.9 [facility] [address] [facility] [id number] [address] [place] [id number] 06 Mar, 2017 [facility] [address] [facility] [id number] [address] [place] [phone] Feb, Wheezing R06.2 and Acute rec urrent pansinusitis J01.41 [facility] [address] [facility] [id number] [address] [place] [id number] Feb, [facility] [address] [facility] [id number] [address] [place] [id number] Feb, Acute non-recurrent maxillar y sinusitis J01.00 [facility] [address] [facility] [id number] [address] [place] [id number] Feb, Chronic obstructive pulmonar y disease, unspecified J44.9 [facility] [address] [facility] [id number] [address] [place] [phone] Feb, Hypoxemia R09.02 and Chronic obstructive pulmonary disease, unspecified J44.9 [facility] [address] [place] [id number] [address] [place] [id number] 28 Jan, 2017 Bipolar 1 disorder, depresse d, moderate F31.32 ; Panic disorder with agoraphobia F40.01 ; Chronic post-traumatic stress disorder (PTSD) F43.12 ; Diabetes E11.9 and Moderate persistent asthma without complication J45.40 [facility] [address] [facility] [id number] [address] [place] [phone] Jan, [facility] [address] [place] [id number] [address] [place] [id number] 19 Jan, 2017 Acute non-recurrent maxillar y sinusitis J01.00 [facility] [address] [place] [id number] [address] [place] [phone] Jan, [facility] [address] [id number] [address] [place] [id number] Jan, [facility] [address] [id number] [address] [place] [id number] Jan, Moderate persistent asthma w ithout complication J45.40 and Hypoxemia R09.02 [facility] [address] [id number] [address] [place] [id number] Jan, Moderate persistent asthma w ithout complication J45.40 and Hypoxemia R09.02 [facility] [address] [id number] [address] [place] [id number] Jan, [facility] [address] [id number] [address] [place] [id number] Dec, Acute non-recurrent maxillar y sinusitis J01.00 [facility] [address] [id number] [address] [place] [id number] Dec, Chronic obstructive pulmonar y disease, unspecified J44.9 [facility] [address] [id number] [address] [place] [id number] Dec, [facility] [address] [id number] [address] [place] [phone] Dec, Mild persistent asthma witho ut complication J45.30 and Other chronic pain G89.29 [facility] [address] [id number] [address] [place] [phone] Nov, [facility] [address] [id number] [address] [place] [phone] Nov, Acute non-recurrent maxillar y sinusitis J01.00 [facility] [address] [id number] [address] [place] [phone] Nov, [facility] [address] [id number] [address] [place] [id number] Nov, [facility] [address] [id number] [address] [place] [phone] Oct, [facility] [address] [facility] [id number] [address] [place] [id number] Oct, Bipolar 1 disorder, depresse d, partial remission F31.75 ; Panic disorder with agoraphobia F40.01 and Chronic post-traumatic stress disorder (PTSD) F43.12 [place] [address] [place] [id number] [address] [place] [id number] Oct, Acute non-recurrent maxillar y sinusitis J01.00 [place] [address] [place] [id number] [address] [place] [id number] Oct, [place] [address] [place] [id number] [address] [place] [phone] Oct, Diabetes E11.9 [place] [address] [place] [id number] [address] [place] [phone] September, Diabetes E11.9 [place] [address] [place] [id number] [address] [place] [phone] September, Diabetes E11.9 and Sinus tac hycardia R00.0 [place] [address] [place] [id number] [address] [place] [id number] September, [place] [address] [place] [id number] [address] [place] [id number] September, [place] [address] [place] [id number] [address] [place] [id number] Aug, Diabetes E11.9 and Lumbago w ith sciatica, right side M54.41 [place] [address] [place] [id number] [address] [place] [id number] Aug, [place] [address] [place] [id number] [address] [place] [id number] Jul, Bipolar 1 disorder, depresse d, moderate F31.32 ; Panic disorder with agoraphobia F40.01 and Chronic post-traumatic stress disorder (PTSD) F43.12 [facility] [address] [facility] [id number] [address] [place] [id number] Jul, Sore throat J02.9 [facility] [address] [facility] [id number] [address] [place] [phone] 16 Jul, 2016 [facility] [address] [facility] [id number] [address] [place] [phone] Jul, [facility] [address] [facility] [id number] [address] [place] [phone] Jul, [facility] [address] [facility] [id number] [address] [place] [phone] Jul, [facility] [address] [facility] [id number] [address] [place] [id number] Jul, Sore throat J02.9 and Pharyn gitis, unspecified etiology J02.9 [facility] [address] [facility] [id number] [address] [place] [phone] 27 Jun, 2016 [facility] [address] [facility] [id number] [address] [place] [id number] 23 Jun, 2016 Diabetes E11.9 [facility] [address] [facility] [id number] [address] [place] [phone] 20 Jun, 2016 [facility] [address] [facility] [id number] [address] [place] [id number] 16 Jun, 2016 [facility] [address] [facility] [id number] [address] [place] [phone] Jun, [facility] [address] [facility] [id number] [address] [place] [phone] Jun, [facility] [address] [facility] [id number] [address] [place] [id number] 16 Jun, 2016 [facility] [address] [facility] [id number] [address] [place] [id number] 15 Jun, 2016 [facility] [address] [place] [id number] [address] [place] [id number] 10 Jun, 2016 [place] [address] [facility] [id number] [address] [place] [id number] Jun, [place] [address] [place] [id number] [address] [place] [id number] May, Diabetes E11.9 ; Other chron ic pain G89.29 ; Acute recurrent maxillary sinusitis J01.01 ; Bipolar I disorder with depression F31.9 and Anxiety disorder, unspecified F41.9 [place] [address] [place] [id number] [address] [place] [phone] May, [place] [address] [place] [id number] [address] [place] [id number] May, Diabetes E11.9 ; Bipolar I d isorder with depression F31.9 ; Anxiety disorder, unspecified F41.9 ; Other chronic pain G89.29 and Acute recurrent maxillary sinusitis J01.01 [place] [id number] [place] [id number] May, [place] [address] [place] [id number] [address] [place] [phone] May, Attention deficit hyperactiv ity disorder (ADHD), predominantly inattentive type F90.0 [place] [address] [id number] May, [place] [address] [place] [id number] [address] [place] [phone] Apr, Attention deficit hyperactiv ity disorder (ADHD), predominantly inattentive type F90.0 and Non-seasonal allergic rhinitis due to other allergic trigger J30.89 [place] [address] [place] [id number] [address] [place] [id number] 15 Apr, 2016 Bipolar 1 disorder, depresse d, moderate F31.32 ; Panic disorder with agoraphobia F40.01 and Chronic post-traumatic stress disorder (PTSD) F43.12 [place] [address] [facility] [id number] [address] [place] [id number] Apr, Dental examination Z01.20 [place] [address] [id number] [address] [place] [phone] Mar, [place] [address] [facility] [id number] [address] [place] [id number] Mar, [place] [address] [facility] [id number] [address] [place] [phone] Mar, Bipolar I disorder with depr ession F31.9 and Anxiety disorder, unspecified F41.9 [place] [address] [facility] [id number] [address] [place] [id number] Mar, Panic disorder with agorapho syd F40.01 ; Bipolar 1 disorder, depressed, moderate F31.32 and Chronic post-traumatic stress disorder (PTSD) F43.12 [place] [address] [place] [id number] [address] [place] [phone] Mar, [place] [address] [facility] [id number] [address] [place] [phone] Mar, Dental caries K02.9 [place] [address] [facility] [id number] [address] [place] [id number] 24 Feb, 2016 Lumbago with sciatica, left side M54.42 ; Lumbago with sciatica, right side M54.41 and Other chronic pain G89.29 [place] [address] [facility] [id number] [address] [place] [phone] Feb, [place] [address] [facility] [id number] [address] [place] [phone] Feb, [place] [address] [facility] [id number] [address] [place] [phone] Feb, Bipolar I disorder with depr ession F31.9 ; PTSD (post-traumatic stress disorder) F43.10 and Mood disorder F39 [place] [address] [facility] [id number] [address] [place] [id number] Feb, [facility] [address] [place] [id number] [address] [place] [phone] Feb, Dental examination Z01.20 [facility] [id number] [place] [id number] 07 Feb, 2016 [facility] [address] [id number] Feb, Acute bronchitis, unspecifie d organism J20.9 [facility] [address] [id number] Jan, Mood disorder F39 ; Migraine without aura and without status migrainosus, not intractable G43.009 ; Irritable bowel syndrome, unspecified type K58.9 ; Diabetes E11.9 and Encounter for immunization Z23 [place] [address] [id number] 15 Jan, 2016 [place] [address] [phone] Jan, [place] [address] [phone] Jan, [place] [address] [address] Jan, [place] [address] [phone] Jan, [facility] [address] [id number] Dec, Bipolar I disorder with depr ession F31.9 ; PTSD (post-traumatic stress disorder) F43.10 and Panic disorder with agoraphobia F40.01 [place] [address] [place] [id number] [address] [place] [id number] Dec, Chronic obstructive pulmonar y disease, unspecified COPD type J44.9 ; Tremor R25.1 and Anxiety F41.9 [place] [address] [id number] [address] [place] [phone] Dec, [facility] [address] [id number] [address] [place] [phone] Nov, Tremors of nervous system R2 5.1 and Cramping of feet R25.2 [facility] [address] [id number] [address] [place] [phone] Nov, [facility] [address] [id number] [address] [place] [id number] Nov, [facility] [address] [id number] [address] [place] [phone] Oct, Chronic obstructive pulmonar y disease, unspecified J44.9 [facility] [address] [facility] [id number] [address] [place] [phone] Oct, [facility] [address] [facility] [id number] [address] [place] [phone] Oct, Tremor R25.1 [facility] [address] [id number] [address] [place] [phone] Oct, Bipolar I disorder with depr ession F31.9 ; Diabetes E11.9 ; PTSD (post-traumatic stress disorder) F43.10 and Panic disorder with agoraphobia F40.01 [facility] [address] [id number] [address] [place] [phone] Oct, Mood disorder F39 [facility] [address] [id number] [address] [place] [phone] September, [facility] [address] [id number] [address] [place] [id number] September, Diabetes E11.9 ; Bipolar I d isorder with depression F31.9 ; PTSD (post-traumatic stress disorder) F43.10 and Panic disorder with agoraphobia F40.01 [facility] [address] [facility] [id number] [address] [place] [phone] September, Mood disorder F39 ; Schizoaf fective disorder, unspecified type F25.9 ; Arthritis M19.90 ; Tremor R25.1 ; Acute non-recurrent frontal sinusitis J01.10 and Blood in stool K92.1 [facility] [address] [id number] [address] [place] [phone] September, [facility] [address] [facility] [id number] [address] [place] [phone] September, Chronic obstructive pulmonar y disease, unspecified J44.9 [facility] [address] [facility] [id number] [address] [place] [phone] September, Diabetes E11.9 [place] [id number] [facility] [id number] [address] [place] [phone] Aug, Other bipolar disorder F31.8 9 and Anxiety disorder, unspecified F41.9 [facility] [address] [facility] [id number] [address] [place] [phone] Aug, [facility] [address] [facility] [id number] [address] [place] [phone] Aug, Diabetes E11.9 [facility] [address] [facility] [id number] [address] [place] [phone] 18 Aug, 2015 [facility] [address] [facility] [id number] [address] [place] [id number] 14 Aug, 2015 Diabetes E11.9 ; Fatigue R53 .83 and Dizziness R42 [facility] [address] [id number] [address] [place] [id number] 13 Aug, 2015 Other bipolar disorder F31.8 9 [facility] [address] [facility] [id number] [address] [place] [phone] 07 Aug, 2015 Generalized anxiety disorder F41.1 [facility] [address] [facility] [id number] [address] [place] [id number] 07 Aug, 2015 Other bipolar disorder F31.8 9 and Anxiety disorder, unspecified F41.9 [facility] [address] [facility] [id number] [address] [place] [phone] Aug, [facility] [address] [facility] [id number] [address] [place] [phone] Jul, [facility] [address] [facility] [id number] [address] [place] [phone] Jul, [facility] [address] [facility] [id number] [address] [place] [phone] Jul, Bronchitis J40 [facility] [address] [facility] [id number] [address] [place] [phone] Jul, Anxiety disorder F41.9 [facility] [address] [facility] [id number] [address] [place] [id number] Jul, Other bipolar disorder F31.8 9 and Anxiety disorder, unspecified F41.9 [facility] [address] [facility] [id number] [address] [place] [id number] Jul, Other bipolar disorder F31.8 9 and Fibromyalgia M79.7 [facility] [address] [facility] [id number] [address] [place] [phone] Jul, [facility] [address] [facility] [id number] [address] [place] [phone] Jul, [facility] [address] [facility] [id number] [address] [place] [phone] Jul, [facility] [address] [facility] [id number] [address] [place] [phone] Jul, Other bipolar disorder F31.8 9 and Anxiety disorder, unspecified F41.9 [facility] [address] [facility] [id number] [address] [place] [phone] Jun, GERD (gastroesophageal reflu x disease) K21.9 [facility] [address] [facility] [id number] [address] [place] [phone] Jun, [facility] [address] [facility] [id number] [address] [place] [phone] May, [facility] [address] [facility] [id number] [address] [place] [phone] May, Diabetes E11.9 ; Back pain M 54.9 ; GERD (gastroesophageal reflux disease) K21.9 ; Hypertension I10 and Peripheral neuropathy G62.9 [facility] [address] [facility] [id number] [address] [place] [phone] Mar, [facility] [address] [place] [id number] [place] [phone] Mar, [facility] [address] [place] [id number] [place] [phone] Mar, Acute sinusitis J01.90 and O titis media, left H66.92 [facility] [address] [place] [id number] [address] [place] [phone] Feb, [facility] [address] [place] [id number] [address] [place] [phone] Feb, [facility] [address] [place] [id number] [address] [place] [phone] Feb, [facility] [address] [place] [id number] [place] [phone] Feb, [facility] [address] [place] [id number] [address] [place] [phone] Jan, [facility] [address] [place] [id number] [address] [place] [phone] Jan, Diabetes 250.00 and Back higinio n 724.5 [facility] [address] [facility] [id number] [address] [place] [id number] Jan, [facility] [address] [place] [id number] [place] [phone] Dec, Diabetes 250.00 ; Benign ess ential hypertension 401.1 and Allergic rhinitis 477.9 [facility] [address] [place] [id number] [address] [place] [phone] Dec, [facility] [address] [id number] [address] [place] [phone] Dec, [facility] [address] [facility] [id number] [address] [place] [id number] Dec, Psychosis 298.9 [facility] [address] [facility] [id number] [address] [place] [id number] Dec, Medication side effect 995.2 0 and Generalized anxiety disorder 300.02 [facility] [address] [id number] [address] [place] [phone] Dec, Acquired cognitive dysfuncti on 294.9 [facility] [address] [facility] [id number] [address] [place] [phone] Dec, [facility] [address] [facility] [id number] [address] [place] [id number] Dec, Unspecified myalgia and myos itis 729.1 and Generalized anxiety disorder 300.02 [facility] [address] [facility] [id number] [address] [place] [phone] Nov, [facility] [address] [facility] [id number] [address] [place] [phone] Nov, [facility] [address] [facility] [id number] [address] [place] [phone] Nov, [facility] [address] [facility] [id number] [address] [place] [phone] Nov, Upper respiratory infection 465.9 and Chronic airway obstruction, not elsewhere classified 496 [facility] [address] [id number] [address] [place] [phone] Nov, Hyponatremia 276.1 [facility] [address] [facility] [id number] [address] [place] [phone] Oct, [facility] [address] [facility] [id number] [address] [place] [phone] Oct, [facility] [address] [id number] [address] [place] [phone] Oct, [facility] [address] [facility] [id number] [address] [place] [phone] Oct, [facility] [address] [facility] [id number] [address] [place] [phone] 04 Oct, 2014 Hyponatremia 276.1 [facility] [address] [facility] [id number] [address] [place] [phone] Oct, [facility] [address] [facility] [id number] [address] [place] [id number] Oct, [facility] [address] [facility] [id number] [address] [place] [phone] Oct, Generalized anxiety disorder 300.02 [facility] [address] [facility] [id number] [address] [place] [phone] Oct, Generalized anxiety disorder 300.02 and Diabetes 250.00 [facility] [address] [id number] [address] [place] [phone] Aug, [facility] [address] [facility] [id number] [address] [place] [phone] Aug, [facility] [address] [facility] [id number] [address] [place] [phone] Jul, [facility] [address] [facility] [id number] [address] [place] [phone] Jul, [facility] [address] [facility] [id number] [address] [place] [phone] Jun, [facility] [address] [facility] [id number] [address] [place] [id number] Jun, [facility] [address] [facility] [id number] [address] [place] [id number] Jun, [facility] [address] [facility] [id number] [address] [place] [id number] Jun, [facility] [address] [id number] [address] [place] [address], [place] [address] Jun, [facility] [address] [id number] [address] [place] [address], [place] [address] May, [facility] [address] [id number] [address] [place] [address], [place] [address] May, [facility] [address] [id number] [address] [place] [address], [place] [address] Apr, [facility] [address] [id number] [address] [place] [address], [place] [address] Apr, [facility] [address] [id number] [address] [place] [address], [place] [address] Apr, [facility] [address] [id number] [address] [place] [address], [place] [address] Apr, [facility] [address] [id number] [address] [place] [address], [place] [address] Apr, [facility] [address] [id number] [address] [place] [address], [place] [address] Apr, [facility] [address] [id number] [address] [place] [address], [place] [address] Apr, [facility] [address] [id number] [address] [place] [address], [place] [address] Apr, [facility] [address] [id number] [address] [place] [id number] Feb, [facility] [address] [id number] [address] [place] [address], [place] [address] Feb, [facility] [address] [id number] [address] [place] [address], [place] [address] Jan, [facility] [address] [id number] [address] [place] [address], [place] [address] 06 Jan, 2013 [facility] [address] [id number] [address] [place] [address], [place] [address] Dec, [facility] [address] [id number] [address] [place] [address], [place] [address] Dec, [facility] [address] [id number] [address] [place] [address], [place] [address] Dec, [facility] [address] [id number] [address] [place] [address], [place] [address] Nov, [facility] [address] [id number] [address] [place] [address], [place] [address] Nov, [facility] [address] [id number] [address] [place] [address], [place] [address] Nov, [facility] [address] [id number] [address] [place] [address], [place] [address] Oct, [facility] [address] [id number] [address] [place] [address], [place] [address] Oct, [facility] [address] [id number] [address] [place] [address], [place] [address] Oct, [facility] [address] [id number] [address] [place] [address], [place] [address] September, [facility] [address] [id number] [address] [place] [address], [place] [address] September, [facility] [address] [id number] [address] [place] [address], [place] [address] September, [facility] [address] [id number] [address] [place] [address], [place] [address] Aug, [facility] [address] [id number] [address] [place] [address], [place] [address] Aug, [facility] [address] [id number] [address] [place] [address], [place] [address] Aug, [facility] [address] [id number] [address] [place] [address], [place] [address] 16 Aug, 2011 [facility] [address] [id number] [address] [place] [address], [place] [address] Jul, [facility] [address] [id number] [address] [place] [address], [place] [address] Jun, [facility] [address] [id number] [address] [place] [address], [place] [address] 14 Jun, 2011 [facility] [address] [id number] [address] [place] [address], [place] [address] 13 Jun, 2011 [facility] [address] [id number] [address] [place] [address], [place] [address] 07 Jun, 2011 [facility] [address] [id number] [address] [place] [address], [place] [address] 03 Jun, 2011 [facility] [address] [id number] [address] [place] [address], [place] [address] May, [facility] [address] [id number] [address] [place] [address], [place] [address] May, [facility] [address] [id number] [address] [place] [address], [place] [address] May, [facility] [address] [id number] [address] [place] [address], [place] [address] 04 May, 2011 [facility] [address] [id number] [address] [place] [address], [place] [address] Apr, [facility] [address] [id number] [address] [place] [address], [place] [address] Apr, [facility] [address] [id number] [address] [place] [address], [place] [address] 05 Apr, 2011 [facility] [address] [id number] [address] [place] [address], [place] [address] Mar, [facility] [address] [id number] [address] [place] [address], [place] [address] Mar, [facility] [address] [id number] [address] [place] [phone] Mar, [facility] [address] [id number] [address] [place] [id number] Feb, [facility] [address] [id number] [address] [place] [phone] Feb, [facility] [address] [id number] [address] [place] [phone] Feb, [facility] [address] [id number] [address] [place] [phone] Nov, [facility] [address] [id number] [address] [place] [phone] September, [facility] [address] [id number] [address] [place] [phone] Aug, [facility] [address] [id number] [address] [place] [phone] Jul, [facility] [address] [id number] [address] [place] [phone] May, [facility] [address] [id number] [address] [place] [phone] Apr, [facility] [address] [id number] [address] [place] [phone] Apr, [facility] [address] [id number] [address] [place] [phone] Apr, [facility] [address] [id number] [address] [place] [phone] Apr, [facility] [address] [id number] [address] [place] [id number] Apr, IMMUNIZATIONS No Known Immunizations SOCIAL HISTORY Never Assessed REASON FOR VISIT Medication question PLAN OF CARE VITAL SIGNS MEDICATIONS Medication Instructions Dosage Frequency Start Date End Date Duration S tatus Flovent HFA 220 MCG/ACT Inhalation Twice a day 1 puff 12h Nov, 30 days Active RESULTS No Results PROCEDURES [...]
--- OUTSIDE RECORDS SUMMARY | 2019-07-17 11:28 | XMS REPORT ---
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 Name Role Phone WHIT GANDHI Unavailable PROBLEMS Type Condition ICD9-CM Code KOL36-SX Code Onset Dates Condition S tatus SNOMED Code Problem Diabetes E11.9 Active 85076707 Problem GERD (gastroesophageal reflux disease) K21.9 Active 958752201 Problem Anxiety disorder, unspecified F41.9 Active 357028545 Problem Hypertension I10 Active 3783195 3 Problem Other bipolar disorder F31.89 Active 08716912 Problem Fibromyalgia M79.7 Active 8529405 7 Problem Panic disorder with agoraphobia F40.01 Active 85281418 Problem Chronic obstructive pulmonary disease, unspecified J44.9 Active 46751362 Problem Lumbago with sciatica, left side M54.42 Active 820045349 Problem Migraine without aura and without status migrain osus, not intractable G43.009 Active 961166112 Problem Lumbago with sciatica, right side M54.41 Active 104345153 Problem Fibrocystic disease of right breast N60.11 Active 06470493 Problem Other chronic pain G89.29 Active 8 2000282 Problem Fibrocystic disease of left breast N60.12 Active 19895845 Problem Irritable bowel syndrome with constipation K58.1 Active 303827589 Problem Arthritis M19.90 Active 1316545 Problem Abnormal mammogram of right breast R92.8 Active 154544736 Problem Daytime somnolence R40.0 Active 1 79558258509 Problem Bipolar affective disorder, remission status unspecified F31.9 Active 91598724 Problem Chronic post-traumatic stress disorder (PTSD) F43. 12 Active 818121940 Problem Bipolar 1 disorder, depressed, moderate F31.32 Active 74338716 Problem Schizoaffective disorder, bipolar type F25.0 Active 54636702 Problem Irritable bowel syndrome with both constipation and diarrh ea K58.2 Active 24827760 Problem Slow transit constipation K59.01 Acti ve 30171285 Problem Essential tremor G25.0 Active 609 900485 Problem Acute non-recurrent maxillary sinusitis J01.00 Active 12537486 Problem Back pain M54.9 Active 570197797 Problem Bipolar 1 disorder, depressed, partial remission F 31.75 Active 21894533 Problem Attention deficit hyperactiv ity disorder (ADHD), predominantly inattentive type F90.0 Active 92816371 Problem Bipolar I disorder with depression F31.9 Active 24387623 Problem Panlobular emphysema J43.1 Active 0820535 Problem Akathisia G25.71 Active 212449617 Problem Mild persistent asthma without complication J45.30 Active 930766785 Problem Moderate persistent asthma without complication J4 5.40 Active 464900665 ALLERGIES No Information ENCOUNTERS Encounter Location Date Diagnosis [place] [address] [address] [facility] [id number] [address] [place] [address] Mar, [place] [address] [place] [id number] [address] [place] [address] Jan, [place] [address] [place] [id number] [address] [place] [address] Jan, [place] [address] [place] [id number] [address] [place] [address] Jan, Abnormal mammogram of right breast R92.8 [place] [address] [place] [id number] [address] [place] [address] Dec, Daytime somnolence R40.0 and Right otitis media with effusion H65.91 [place] [facility] [id number] [address] [place] [address] Dec, [place] [address] [facility] [id number] [address] [place] [address] Dec, Cerebrovascular accident (CV A) due to occlusion of right cerebellar artery I63.541 [place] [address] [facility] [id number] [address] [place] [address] Dec, [place] [place] [id number] [address] [place] [address] Dec, [facility] [address] [facility] [id number] [address] [place] [address] Nov, Bipolar 1 disorder, depresse d, partial remission F31.75 and Panic disorder with agoraphobia F40.01 [facility] [address] [id number] [address] [place] [address] Nov, Panlobular emphysema J43.1 [facility] [address] [id number] [address] [place] [address] Nov, Cerebrovascular accident (CV A) due to occlusion of right cerebellar artery I63.541 and Acute non-recurrent maxillary sinusitis J01.00 [facility] [address] [id number] [address] [place] [address] Nov, Panlobular emphysema J43.1 [facility] [address] [id number] [address] [place] [address] Nov, [facility] [address] [id number] [address] [place] [address] Nov, [facility] [address] [facility] [id number] [address] [place] [address] Nov, [facility] [address] [id number] [address] [place] [address] Nov, [facility] [address] [facility] [id number] [address] [place] [address] Nov, [facility] [address] [id number] [address] [place] [address] Nov, [facility] [address] [facility] [id number] [address] [place] [address] Nov, [facility] [address] [facility] [id number] [address] [place] [address] Nov, Mild persistent asthma witho ut complication J45.30 and Irritable bowel syndrome with both constipation and diarrhea K58.2 [facility] [address] [id number] [address] [place] [address] Nov, [facility] [address] [id number] [address] [place] [address] Oct, [facility] [address] [id number] [address] [place] [address] Oct, [facility] [address] [facility] [id number] [address] [place] [address] Oct, Type 2 diabetes mellitus wit h diabetic neuropathy, unspecified whether buttermaker helper insulin use E11.40 ; Diabetes E11.9 ; Slow transit constipation K59.01 ; Edema of both legs R60.0 and Dysfunction of right eustachian tube H69.81 [facility] [address] [id number] [address] [place] [address] Oct, Frequent headaches R51 [facility] [address] [id number] [address] [place] [address] Oct, [facility] [address] [id number] [address] [place] [address] Oct, [facility] [address] [facility] [id number] [address] [place] [address] Oct, [facility] [address] [facility] [id number] [address] [place] [address] Oct, [facility] [address] [id number] [address] [place] [address] Oct, [facility] [address] [id number] [address] [place] [address] Oct, [facility] [address] [facility] [id number] [address] [place] [address] Oct, [facility] [address] [facility] [id number] [address] [place] [address] Oct, [facility] [address] [facility] [id number] [address] [place] [address] September, Frequent headaches R51 [facility] [address] [facility] [id number] [address] [place] [address] September, Bilateral otitis media with effusion H65.93 ; Dizziness R42 and Essential tremor G25.0 [facility] [address] [facility] [id number] [address] [place] [address] September, Chronic obstructive pulmonar y disease, unspecified COPD type J44.9 [facility] [address] [id number] [address] [place] [address] September, Chronic obstructive pulmonar y disease, unspecified COPD type J44.9 [facility] [address] [place] [id number] [address] [place] [address] September, Migraine without aura and wi thout status migrainosus, not intractable G43.009 [facility] [address] [place] [id number] [address] [place] [address] September, [facility] [address] [place] [id number] [address] [place] [address] September, [facility] [address] [place] [id number] [address] [place] [address] September, [facility] [address] [facility] [id number] [address] [place] [address] September, Frequent headaches R51 [facility] [address] [place] [id number] [address] [place] [address] Aug, [facility] [address] [facility] [id number] [address] [place] [address] Aug, Breast mass, right N63.10 [facility] [address] [place] [id number] [address] [place] [address] Aug, Breast lump N63.0 [facility] [address] [place] [id number] [address] [place] [address] Aug, [facility] [address] [place] [id number] [address] [place] [address] Aug, Bipolar affective disorder, remission status unspecified F31.9 and Diabetes E11.9 [place] [address] [id number] [address] [place] [address] Aug, Diabetes E11.9 ; Schizoaffec tive disorder, bipolar type F25.0 ; Pharyngitis due to other organism J02.8 ; Panlobular emphysema J43.1 and Irritable bowel syndrome with both constipation and diarrhea K58.2 [place] [address] [id number] [address] [place] [address] Aug, Abnormal mammogram R92.8 [place] [address] [id number] [address] [place] [address] Aug, [place] [address] [facility] [id number] [address] [place] [address] Aug, Bipolar 1 disorder, depresse d, moderate F31.32 ; Panic disorder with agoraphobia F40.01 and Chronic post-traumatic stress disorder (PTSD) F43.12 [place] [address] [id number] [address] [place] [address] Aug, [place] [address] [id number] [address] [place] [address] Aug, [place] [address] [id number] [address] [place] [address] Aug, [place] [address] [id number] [address] [place] [address] Jul, [place] [address] [id number] [address] [place] [address] Jul, Mild persistent asthma witho ut complication J45.30 [place] [address] [id number] [address] [place] [address] 19 Jul, 2017 Mild persistent asthma witho ut complication J45.30 [place] [address] [id number] [address] [place] [address] Jul, Bipolar affective disorder, remission status unspecified F31.9 ; Diabetes E11.9 and Irritable bowel syndrome with constipation K58.1 [facility] [address] [id number] [address] [place] [address] 13 Jul, 2017 [facility] [address] [id number] [address] [place] [address] Jul, [facility] [address] [id number] [address] [place] [address] Jul, Frequent headaches R51 [facility] [address] [facility] [id number] [address] [place] [address] Jul, [facility] [address] [facility] [id number] [address] [place] [address] Jul, [facility] [address] [facility] [id number] [address] [place] [address] Jul, [facility] [address] [facility] [id number] [address] [place] [address] Jul, Frequent headaches R51 ; Fib rocystic disease of left breast N60.12 ; Fibrocystic disease of right breast N60.11 and Diabetes E11.9 [facility] [address] [facility] [id number] [address] [place] [address] Jul, [facility] [address] [facility] [id number] [address] [place] [address] Jul, [facility] [address] [facility] [id number] [address] [place] [address] Jun, Exudative tonsillitis J03.90 [facility] [address] [facility] [id number] [address] [place] [address] Jun, [facility] [address] [facility] [id number] [address] [place] [address] Jun, [facility] [address] [facility] [id number] [address] [place] [address] Jun, Mild persistent asthma witho ut complication J45.30 ; Chronic obstructive pulmonary disease, unspecified COPD type J44.9 and Exudative tonsillitis J03.90 [facility] [address] [address] 13 Jun, 2017 Encounter for immunization Z 23 [facility] [address] [address] 12 Jun, 2017 [facility] [address] [address] Jun, [facility] [address] [address] Jun, [facility] [address] [address] 06 Jun, 2017 Tonsillitis J03.90 [facility] [address] [id number] 05 Jun, 2017 [facility] [address] [address] 03 Jun, 2017 Acute non-recurrent maxillar y sinusitis J01.00 [place] [address] [address] 02 Jun, 2017 [facility] [address] [address] May, [facility] [address] [address] May, [facility] [address] [address] May, GERD (gastroesophageal reflu x disease) K21.9 [facility] [address] [address] May, Migraine without aura and wi thout status migrainosus, not intractable G43.009 [facility] [address] [address] May, [facility] [address] [facility] [id number] [address] [place] [address] May, [facility] [address] [facility] [id number] [address] [place] [address] May, Panlobular emphysema J43.1 a nd Acute non-recurrent maxillary sinusitis J01.00 [facility] [address] [facility] [id number] [address] [place] [address] May, Bipolar 1 disorder, depresse d, moderate F31.32 ; Panic disorder with agoraphobia F40.01 and Akathisia G25.71 [place] [address] [facility] [id number] [address] [place] [address] Apr, [facility] [address] [facility] [id number] [address] [place] [address] Apr, [facility] [address] [facility] [id number] [address] [place] [address] Apr, Acute non-recurrent maxillar y sinusitis J01.00 [facility] [address] [facility] [id number] [address] [place] [address] 07 Apr, 2017 Panlobular emphysema J43.1 [facility] [address] [facility] [id number] [address] [place] [address] Apr, [facility] [address] [facility] [id number] [address] [place] [address] 04 Apr, 2017 Exudative tonsillitis J03.90 and Sore throat J02.9 [facility] [address] [facility] [id number] [address] [place] [address] Mar, [facility] [address] [facility] [id number] [address] [place] [address] 15 Mar, 2017 Acute non-recurrent maxillar y sinusitis J01.00 [facility] [address] [facility] [id number] [address] [place] [address] Mar, [facility] [address] [facility] [id number] [address] [place] [address] 09 Mar, 2017 Panlobular emphysema J43.1 a nd Diabetes E11.9 [facility] [address] [facility] [id number] [address] [place] [address] 06 Mar, 2017 [facility] [address] [facility] [id number] [address] [place] [address] Feb, Wheezing R06.2 and Acute rec urrent pansinusitis J01.41 [facility] [address] [facility] [id number] [address] [place] [address] Feb, [facility] [address] [facility] [id number] [address] [place] [address] Feb, Acute non-recurrent maxillar y sinusitis J01.00 [facility] [address] [facility] [id number] [address] [place] [address] Feb, Chronic obstructive pulmonar y disease, unspecified J44.9 [facility] [address] [facility] [id number] [address] [place] [address] Feb, Hypoxemia R09.02 and Chronic obstructive pulmonary disease, unspecified J44.9 [facility] [address] [place] [id number] [address] [place] [address] 28 Jan, 2017 Bipolar 1 disorder, depresse d, moderate F31.32 ; Panic disorder with agoraphobia F40.01 ; Chronic post-traumatic stress disorder (PTSD) F43.12 ; Diabetes E11.9 and Moderate persistent asthma without complication J45.40 [facility] [address] [facility] [id number] [address] [place] [address] Jan, [facility] [address] [place] [id number] [address] [place] [address] 19 Jan, 2017 Acute non-recurrent maxillar y sinusitis J01.00 [facility] [address] [place] [id number] [address] [place] [address] Jan, [facility] [address] [id number] [address] [place] [address] Jan, [facility] [address] [id number] [address] [place] [address] Jan, Moderate persistent asthma w ithout complication J45.40 and Hypoxemia R09.02 [facility] [address] [id number] [address] [place] [address] Jan, Moderate persistent asthma w ithout complication J45.40 and Hypoxemia R09.02 [facility] [address] [id number] [address] [place] [address] Jan, [facility] [address] [id number] [address] [place] [address] Dec, Acute non-recurrent maxillar y sinusitis J01.00 [facility] [address] [id number] [address] [place] [address] Dec, Chronic obstructive pulmonar y disease, unspecified J44.9 [facility] [address] [id number] [address] [place] [address] Dec, [facility] [address] [id number] [address] [place] [address] Dec, Mild persistent asthma witho ut complication J45.30 and Other chronic pain G89.29 [facility] [address] [id number] [address] [place] [address] Nov, [facility] [address] [id number] [address] [place] [address] Nov, Acute non-recurrent maxillar y sinusitis J01.00 [facility] [address] [id number] [address] [place] [address] Nov, [facility] [address] [id number] [address] [place] [address] Nov, [facility] [address] [id number] [address] [place] [address] Oct, [facility] [address] [facility] [id number] [address] [place] [id number] Oct, Bipolar 1 disorder, depresse d, partial remission F31.75 ; Panic disorder with agoraphobia F40.01 and Chronic post-traumatic stress disorder (PTSD) F43.12 [place] [address] [place] [id number] [address] [place] [phone] Oct, Acute non-recurrent maxillar y sinusitis J01.00 [place] [address] [place] [id number] [address] [place] [id number] Oct, [place] [address] [place] [id number] [address] [place] [phone] Oct, Diabetes E11.9 [place] [address] [place] [id number] [address] [place] [phone] September, Diabetes E11.9 [place] [address] [place] [id number] [address] [place] [phone] September, Diabetes E11.9 and Sinus tac hycardia R00.0 [place] [address] [place] [id number] [address] [place] [phone] September, [place] [address] [place] [id number] [address] [place] [phone] September, [place] [address] [place] [id number] [address] [place] [phone] Aug, Diabetes E11.9 and Lumbago w ith sciatica, right side M54.41 [place] [address] [place] [id number] [address] [place] [id number] Aug, [place] [address] [place] [id number] [address] [place] [phone] Jul, Bipolar 1 disorder, depresse d, moderate F31.32 ; Panic disorder with agoraphobia F40.01 and Chronic post-traumatic stress disorder (PTSD) F43.12 [facility] [address] [facility] [id number] [address] [place] [id number] Jul, Sore throat J02.9 [facility] [address] [facility] [id number] [address] [place] [phone] 16 Jul, 2016 [facility] [address] [facility] [id number] [address] [place] [id number] Jul, [facility] [address] [facility] [id number] [address] [place] [phone] Jul, [facility] [address] [facility] [id number] [address] [place] [phone] Jul, [facility] [address] [facility] [id number] [address] [place] [phone] Jul, Sore throat J02.9 and Pharyn gitis, unspecified etiology J02.9 [facility] [address] [facility] [id number] [address] [place] [id number] 27 Jun, 2016 [facility] [address] [facility] [id number] [address] [place] [id number] 23 Jun, 2016 Diabetes E11.9 [facility] [address] [facility] [facility] [id number] [address] [place] [phone] 20 Jun, 2016 [facility] [address] [facility] [id number] [address] [place] [phone] 16 Jun, 2016 [facility] [address] [facility] [id number] [address] [place] [phone] Jun, [facility] [address] [facility] [id number] [address] [place] [phone] Jun, [facility] [address] [facility] [id number] [address] [place] [address] 16 Jun, 2016 [facility] [address] [facility] [id number] [address] [place] [address] 15 Jun, 2016 [facility] [address] [place] [id number] [address] [place] [address] 10 Jun, 2016 [place] [address] [facility] [id number] [address] [place] [address] Jun, [place] [address] [place] [id number] [address] [place] [address] May, Diabetes E11.9 ; Other chron ic pain G89.29 ; Acute recurrent maxillary sinusitis J01.01 ; Bipolar I disorder with depression F31.9 and Anxiety disorder, unspecified F41.9 [place] [address] [place] [id number] [address] [place] [address] May, [place] [address] [place] [id number] [address] [place] [address] May, Diabetes E11.9 ; Bipolar I d isorder with depression F31.9 ; Anxiety disorder, unspecified F41.9 ; Other chronic pain G89.29 and Acute recurrent maxillary sinusitis J01.01 [place] [id number] [place] [address] May, [place] [address] [place] [id number] [address] [place] [address] May, Attention deficit hyperactiv ity disorder (ADHD), predominantly inattentive type F90.0 [place] [address] [address] May, [place] [address] [place] [id number] [address] [place] [address] Apr, Attention deficit hyperactiv ity disorder (ADHD), predominantly inattentive type F90.0 and Non-seasonal allergic rhinitis due to other allergic trigger J30.89 [place] [address] [place] [id number] [address] [place] [address] 15 Apr, 2016 Bipolar 1 disorder, depresse d, moderate F31.32 ; Panic disorder with agoraphobia F40.01 and Chronic post-traumatic stress disorder (PTSD) F43.12 [place] [address] [facility] [id number] [address] [place] [address] Apr, Dental examination Z01.20 [place] [address] [id number] [address] [place] [address] Mar, [place] [address] [facility] [id number] [address] [place] [address] Mar, [place] [address] [facility] [id number] [address] [place] [address] Mar, Bipolar I disorder with depr ession F31.9 and Anxiety disorder, unspecified F41.9 [place] [address] [facility] [id number] [address] [place] [address] Mar, Panic disorder with agorapho syd F40.01 ; Bipolar 1 disorder, depressed, moderate F31.32 and Chronic post-traumatic stress disorder (PTSD) F43.12 [place] [address] [place] [id number] [address] [place] [address] Mar, [place] [address] [facility] [id number] [address] [place] [address] Mar, Dental caries K02.9 [place] [address] [facility] [id number] [address] [place] [address] 24 Feb, 2016 Lumbago with sciatica, left side M54.42 ; Lumbago with sciatica, right side M54.41 and Other chronic pain G89.29 [place] [address] [facility] [id number] [address] [place] [address] Feb, [place] [address] [facility] [id number] [address] [place] [address] Feb, [place] [address] [facility] [id number] [address] [place] [address] Feb, Bipolar I disorder with depr ession F31.9 ; PTSD (post-traumatic stress disorder) F43.10 and Mood disorder F39 [place] [address] [facility] [id number] [address] [place] [address] Feb, [facility] [address] [place] [id number] [address] [place] [address] Feb, Dental examination Z01.20 [facility] [id number] [place] [address] 07 Feb, 2016 [facility] [address] [address] Feb, Acute bronchitis, unspecifie d organism J20.9 [facility] [address] [address] Jan, Mood disorder F39 ; Migraine without aura and without status migrainosus, not intractable G43.009 ; Irritable bowel syndrome, unspecified type K58.9 ; Diabetes E11.9 and Encounter for immunization Z23 [place] [address] [address] 15 Jan, 2016 [place] [address] [address] Jan, [place] [address] [address] Jan, [place] [address] [address] Jan, [place] [address] [address] Jan, [facility] [address] [address] Dec, Bipolar I disorder with depr ession F31.9 ; PTSD (post-traumatic stress disorder) F43.10 and Panic disorder with agoraphobia F40.01 [place] [address] [place] [id number] [address] [place] [address] Dec, Chronic obstructive pulmonar y disease, unspecified COPD type J44.9 ; Tremor R25.1 and Anxiety F41.9 [place] [address] [id number] [address] [place] [address] Dec, [facility] [address] [id number] [address] [place] [address] Nov, Tremors of nervous system R2 5.1 and Cramping of feet R25.2 [facility] [address] [id number] [address] [place] [address] Nov, [facility] [address] [id number] [address] [place] [address] Nov, [facility] [address] [id number] [address] [place] [address] Oct, Chronic obstructive pulmonar y disease, unspecified J44.9 [facility] [address] [facility] [id number] [address] [place] [address] Oct, [facility] [address] [facility] [id number] [address] [place] [address] Oct, Tremor R25.1 [facility] [address] [id number] [address] [place] [address] Oct, Bipolar I disorder with depr ession F31.9 ; Diabetes E11.9 ; PTSD (post-traumatic stress disorder) F43.10 and Panic disorder with agoraphobia F40.01 [facility] [address] [id number] [address] [place] [address] Oct, Mood disorder F39 [facility] [address] [id number] [address] [place] [address] September, [facility] [address] [id number] [address] [place] [address] September, Diabetes E11.9 ; Bipolar I d isorder with depression F31.9 ; PTSD (post-traumatic stress disorder) F43.10 and Panic disorder with agoraphobia F40.01 [facility] [address] [facility] [id number] [address] [place] [address] September, Mood disorder F39 ; Schizoaf fective disorder, unspecified type F25.9 ; Arthritis M19.90 ; Tremor R25.1 ; Acute non-recurrent frontal sinusitis J01.10 and Blood in stool K92.1 [facility] [address] [id number] [address] [place] [address] September, [facility] [address] [facility] [id number] [address] [place] [address] September, Chronic obstructive pulmonar y disease, unspecified J44.9 [facility] [address] [facility] [id number] [address] [place] [address] September, Diabetes E11.9 [place] [address] [facility] [id number] [address] [place] [address] Aug, Other bipolar disorder F31.8 9 and Anxiety disorder, unspecified F41.9 [facility] [address] [facility] [id number] [address] [place] [address] Aug, [facility] [address] [facility] [id number] [address] [place] [address] Aug, Diabetes E11.9 [facility] [address] [facility] [id number] [address] [place] [address] 18 Aug, 2015 [facility] [address] [facility] [id number] [address] [place] [address] 14 Aug, 2015 Diabetes E11.9 ; Fatigue R53 .83 and Dizziness R42 [facility] [address] [id number] [address] [place] [address] 13 Aug, 2015 Other bipolar disorder F31.8 9 [facility] [address] [facility] [id number] [address] [place] [address] 07 Aug, 2015 Generalized anxiety disorder F41.1 [facility] [address] [facility] [id number] [address] [place] [address] 07 Aug, 2015 Other bipolar disorder F31.8 9 and Anxiety disorder, unspecified F41.9 [facility] [address] [facility] [id number] [address] [place] [address] Aug, [facility] [address] [facility] [id number] [address] [place] [address] Jul, [facility] [address] [facility] [id number] [address] [place] [address] Jul, [facility] [address] [facility] [id number] [address] [place] [address] Jul, Bronchitis J40 [facility] [address] [facility] [id number] [address] [place] [address] Jul, Anxiety disorder F41.9 [facility] [address] [facility] [id number] [address] [place] [address] Jul, Other bipolar disorder F31.8 9 and Anxiety disorder, unspecified F41.9 [facility] [address] [facility] [id number] [address] [place] [address] Jul, Other bipolar disorder F31.8 9 and Fibromyalgia M79.7 [facility] [address] [facility] [id number] [address] [place] [address] Jul, [facility] [address] [facility] [id number] [address] [place] [address] Jul, [facility] [address] [facility] [id number] [address] [place] [address] Jul, [facility] [address] [facility] [id number] [address] [place] [address] Jul, Other bipolar disorder F31.8 9 and Anxiety disorder, unspecified F41.9 [facility] [address] [facility] [id number] [address] [place] [address] Jun, GERD (gastroesophageal reflu x disease) K21.9 [facility] [address] [facility] [id number] [address] [place] [address] Jun, [facility] [address] [facility] [id number] [address] [place] [address] May, [facility] [address] [facility] [id number] [address] [place] [address] May, Diabetes E11.9 ; Back pain M 54.9 ; GERD (gastroesophageal reflux disease) K21.9 ; Hypertension I10 and Peripheral neuropathy G62.9 [facility] [address] [facility] [id number] [address] [place] [address] Mar, [facility] [address] [place] [id number] [place] [address] Mar, [facility] [address] [place] [id number] [place] [address] Mar, Acute sinusitis J01.90 and O titis media, left H66.92 [facility] [address] [place] [id number] [address] [place] [address] Feb, [facility] [address] [place] [id number] [address] [place] [address] Feb, [facility] [address] [place] [id number] [address] [place] [address] Feb, [facility] [address] [place] [id number] [place] [address] Feb, [facility] [address] [place] [id number] [address] [place] [address] Jan, [facility] [address] [place] [id number] [address] [place] [address] Jan, Diabetes 250.00 and Back higinio n 724.5 [facility] [address] [facility] [id number] [address] [place] [address] Jan, [facility] [address] [place] [id number] [place] [address] Dec, Diabetes 250.00 ; Benign ess ential hypertension 401.1 and Allergic rhinitis 477.9 [facility] [address] [place] [id number] [address] [place] [address] Dec, [facility] [address] [id number] [address] [place] [address] Dec, [facility] [address] [facility] [id number] [address] [place] [address] Dec, Psychosis 298.9 [facility] [address] [facility] [id number] [address] [place] [address] Dec, Medication side effect 995.2 0 and Generalized anxiety disorder 300.02 [facility] [address] [id number] [address] [place] [address] Dec, Acquired cognitive dysfuncti on 294.9 [facility] [address] [facility] [id number] [address] [place] [address] Dec, [facility] [address] [facility] [id number] [address] [place] [address] Dec, Unspecified myalgia and myos itis 729.1 and Generalized anxiety disorder 300.02 [facility] [address] [facility] [id number] [address] [place] [address] Nov, [facility] [address] [facility] [id number] [address] [place] [address] Nov, [facility] [address] [facility] [id number] [address] [place] [address] Nov, [facility] [address] [facility] [id number] [address] [place] [address] Nov, Upper respiratory infection 465.9 and Chronic airway obstruction, not elsewhere classified 496 [facility] [address] [id number] [address] [place] [address] Nov, Hyponatremia 276.1 [facility] [address] [facility] [id number] [address] [place] [address] Oct, [facility] [address] [facility] [id number] [address] [place] [address] Oct, [facility] [address] [id number] [address] [place] [address] Oct, [facility] [address] [facility] [id number] [address] [place] [address] Oct, [facility] [address] [facility] [id number] [address] [place] [address] 04 Oct, 2014 Hyponatremia 276.1 [facility] [address] [facility] [id number] [address] [place] [address] Oct, [facility] [address] [facility] [id number] [address] [place] [address] Oct, [facility] [address] [facility] [id number] [address] [place] [address] Oct, Generalized anxiety disorder 300.02 [facility] [address] [facility] [id number] [address] [place] [address] Oct, Generalized anxiety disorder 300.02 and Diabetes 250.00 [facility] [address] [id number] [address] [place] [address] Aug, [facility] [address] [facility] [id number] [address] [place] [address] Aug, [facility] [address] [facility] [id number] [address] [place] [address] Jul, [facility] [address] [facility] [id number] [address] [place] [address] Jul, [facility] [address] [facility] [id number] [address] [place] [address] Jun, [facility] [address] [facility] [id number] [address] [place] [address] Jun, [facility] [address] [facility] [id number] [address] [place] [address] Jun, [facility] [address] [facility] [id number] [address] [place] [address] Jun, [facility] [address] [id number] [address] [place] [address], [place] [address] Jun, [facility] [address] [id number] [address] [place] [address], [place] [address] May, [facility] [address] [id number] [address] [place] [address], [place] [address] May, [facility] [address] [id number] [address] [place] [address], [place] [address] Apr, [facility] [address] [id number] [address] [place] [address], [place] [address] Apr, [facility] [address] [id number] [address] [place] [address], [place] [address] Apr, [facility] [address] [id number] [address] [place] [address], [place] [address] Apr, [facility] [address] [id number] [address] [place] [address], [place] [address] Apr, [facility] [address] [id number] [address] [place] [address], [place] [address] Apr, [facility] [address] [id number] [address] [place] [address], [place] [address] Apr, [facility] [address] [id number] [address] [place] [address], [place] [address] Apr, [facility] [address] [id number] [address] [place] [phone] Feb, [facility] [address] [id number] [address] [place] [address], [place] [address] Feb, [facility] [address] [id number] [address] [place] [address], [place] [address] Jan, [facility] [address] [id number] [address] [place] [address], [place] [address] 06 Jan, 2013 [facility] [address] [id number] [address] [place] [address], [place] [id number] Dec, [facility] [address] [id number] [address] [place] [address], [place] [address] Dec, [facility] [address] [id number] [address] [place] [address], [place] [address] Dec, [facility] [address] [id number] [address] [place] [address], [place] [address] Nov, [facility] [address] [id number] [address] [place] [address], [place] [id number] Nov, [facility] [address] [id number] [address] [place] [address], [place] [address] Nov, [facility] [address] [id number] [address] [place] [address], [place] [id number] Oct, [facility] [address] [id number] [address] [place] [address], [place] [address] Oct, [facility] [address] [id number] [address] [place] [address], [place] [address] Oct, [facility] [address] [id number] [address] [place] [address], [place] [address] September, [facility] [address] [id number] [address] [place] [address], [place] [address] September, [facility] [address] [id number] [address] [place] [address], [place] [address] September, [facility] [address] [id number] [address] [place] [address], [place] [address] Aug, [facility] [address] [id number] [address] [place] [address], [place] [address] Aug, [facility] [address] [id number] [address] [place] [address], [place] [address] Aug, [facility] [address] [id number] [address] [place] [address], [place] [id number] 16 Aug, 2011 [facility] [address] [id number] [address] [place] [address], [place] [address] Jul, [facility] [address] [id number] [address] [place] [address], [place] [address] Jun, [facility] [address] [id number] [address] [place] [address], [place] [id number] 14 Jun, 2011 [facility] [address] [id number] [address] [place] [address], [place] [id number] 13 Jun, 2011 [facility] [address] [id number] [address] [place] [address], [place] [id number] 07 Jun, 2011 [facility] [address] [id number] [address] [place] [address], [place] [id number] 03 Jun, 2011 [facility] [address] [id number] [address] [place] [address], [place] [address] May, [facility] [address] [id number] [address] [place] [address], [place] [address] May, [facility] [address] [id number] [address] [place] [address], [place] [address] May, [facility] [address] [id number] [address] [place] [address], [place] [id number] 04 May, 2011 [facility] [address] [id number] [address] [place] [address], [place] [address] Apr, [facility] [address] [id number] [address] [place] [address], [place] [address] Apr, [facility] [address] [id number] [address] [place] [address], [place] [address] 05 Apr, 2011 [facility] [address] [id number] [address] [place] [address], [place] [address] Mar, [facility] [address] [id number] [address] [place] [address], [place] [address] Mar, [facility] [address] [id number] [address] [place] [phone] 09 Mar, 2011 [facility] [address] [id number] [address] [place] [phone] 13 Feb, 2011 [facility] [address] [id number] [address] [place] [phone] 13 Feb, 2011 [facility] [address] [id number] [address] [place] [phone] Feb, [facility] [address] [id number] [address] [place] [phone] Nov, [facility] [address] [id number] [address] [place] [phone] September, [facility] [address] [id number] [address] [place] [phone] Aug, [facility] [address] [id number] [address] [place] [phone] Jul, [facility] [address] [id number] [address] [place] [phone] May, [facility] [address] [id number] [address] [place] [phone] Apr, [facility] [address] [id number] [address] [place] [phone] Apr, [facility] [address] [id number] [address] [place] [phone] Apr, [facility] [address] [id number] [address] [place] [phone] Apr, [facility] [address] [id number] [address] [place] [id number] Apr, IMMUNIZATIONS No Known Immunizations SOCIAL HISTORY Never Assessed REASON FOR VISIT Med reconciliation post hosp admit PLAN OF CARE VITAL SIGNS MEDICATIONS Medication Instructions Dosage Frequency Start Date End Date Duration S tatus Ibuprofen 600 MG TAKE ONE TABLET BY MOUTH THREE TIMES DAILY 33 Not-Taking Aspir-81 81 MG Orally Once a day 1 tablet 24h Active Diclofenac Sodium 1 % Transdermal Four times a day 2-4- grams to affected areas 6h Jun, 30 days Active Loxapine Succinate 10 mg Orally twice a day for mood 1 capsule Active Dicyclomine HCl 20 mg Orally Four times a day 1 tablet 6h 18 A 2017 30 day(s) Active Ondansetron 4 MG Orally every 8 hrs PRN 1 tablet on the t ongue and allow to dissolve Apr, 30 days Active Amlodipine Besylate 5 MG Orally Once a day 1 tablet 24h Active Gaviscon 80-14.2 MG Orally 4 times a day 4 tablet 6h Unknown Trazodone HCl 100 mg Orally for sleep 1 tablet at bedtime Jan Active Clonidine HCl 0.1 MG 1 tablet 8h Ac tive Cetirizine HCl 10 mg Orally Once a day 1 tablet 24h Apr, 30 day(s) Unknown Sudafed 30 MG Orally every 6 hrs 1 tablet as needed 6h September, Unknown Hydrochlorothiazide 12.5 MG Orally Once a day 1 tablet in the morni ng 24h Oct, 30 day(s) Not-Taking Glucosamine 1000 MG Orally Once a day 2 capsules 24h Unknown MiraLax - Orally 3 times a day until you have a BM then Reduce to once daily. 17 grams mixed with 8 oz of fluid 30 days Active Singulair 10 mg Orally Once a day 1 tablet in the evening 24h Oct, 30 day(s) Active Amitiza 8 MCG Orally Twice a day 1 capsule with food 12h Nov, 30 day(s) Active Calcium 600 + D 600-200 MG-UNIT Active Lamictal 100 mg Orally 2 times a day for depression 1 tablet September, Active Insulin Pen Needle 32G X 6 MM as directed 24h Oct, Active Benztropine Mesylate 0.5 MG Orally 3 times a day-Q AM, 4pm and bedtime for restlessness 1 tablet Mar, Active [place] 7.5-325 MG Orally 3 times a day 1 tablet as needed 8h Oct, 28 days Active Gabapentin 800 MG Orally Three times a day 1 tablet 8h Jul, Active Levemir FlexTouch 100 UNIT/ML Subcutaneous Once a day 7 units 24h September, 30 days Active Nicoderm CQ 21 MG/24HR Transdermal Once a day x42 days 1 patch to skin Unknown Baclofen 20 MG Orally Three times a day 1 tablet with food or milk 8h 30 Active Multivitamin Adult - Act minoo Guaifenesin 400 mg Orally every 4 hrs 1 tablet 4h Active Adderall XR 20 mg Orally Once a day for depression 1 capsule in the morning Nov, 28 days Active Nebulizer 1 as directed Jul, Act minoo Pgauohfoai-TNKK-Iovpjewc 50-325-40 MG Orally 3 times a day 1 cap yg as needed 8h Jun, Active Atorvastatin Calcium 10 MG Orally Once a day 1 tablet 24h Active Lisinopril 40 MG Orally Once a day 1 tablet 24h Active Nexium 40 mg 1 capsule 24h Active BusPIRone HCl 15 mg Orally 3 times a day for anxiety 1 tablet Jan, Active Qvar 80 MCG/ACT Inhalation Twice a day 1 puff 12h Oct, 30 days Active Xopenex 1.25 MG/3ML Inhalation 4 times a day prn 3 ml Dec, 30 days Active Anoro Ellipta 62.5-25 MCG/INH Inhalation Once a day 1 puff 24h Oct, 30 days Active Metformin HCl 1000 MG Orally Twice a day 1 tablet with meals 12h Aug, 30 day(s) Active Flonase 50 mcg/act 1 spray in each nostril 12h Apr, Active Propranolol HCl 20 mg Orally Twice a day 1 tablet 12h September, 30 day(s) Not-Taking Metoprolol Tartrate 50 mg Orally Twice a day TAKE ONE TABLE T BY MOUTH TWICE DAILY WITH FOOD 12h Active Nicotine Polacrilex 4 MG Mouth/Throat 20 time(s) a day 1 lozenge as n eeded Unknown Ventolin HFA 108 (90 Base) MCG/ACT Inhalation every 4 hrs 2 puffs a s needed 4h Dec, Active Lorazepam 2 MG Orally in the [...]
--- OUTSIDE RECORDS SUMMARY | 2019-07-17 11:28 | XMS REPORT ---
Author Author Sujey GANDHI Organization [facility] Address [address] [place] [address] Care Team Providers Care Air Brush Operator Name Role Phone WHIT GANDHI Unavailable PROBLEMS Type Condition ICD9-CM Code OGX16-CF Code Onset Dates Condition S tatus SNOMED Code Problem Diabetes E11.9 Active 73820841 Problem GERD (gastroesophageal reflux disease) K21.9 Active 267233423 Problem Anxiety disorder, unspecified F41.9 Active 192886181 Problem Hypertension I10 Active 1326571 3 Problem Other bipolar disorder F31.89 Active 19378670 Problem Fibromyalgia M79.7 Active 5626621 7 Problem Panic disorder with agoraphobia F40.01 Active 30144782 Problem Chronic obstructive pulmonary disease, unspecified J44.9 Active 58787281 Problem Lumbago with sciatica, left side M54.42 Active 365384134 Problem Migraine without aura and without status migrain osus, not intractable G43.009 Active 216873029 Problem Lumbago with sciatica, right side M54.41 Active 267193032 Problem Fibrocystic disease of right breast N60.11 Active 78720517 Problem Other chronic pain G89.29 Active 8 2794543 Problem Fibrocystic disease of left breast N60.12 Active 36340846 Problem Irritable bowel syndrome with constipation K58.1 Active 783078199 Problem Arthritis M19.90 Active 8114077 Problem Abnormal mammogram of right breast R92.8 Active 721918915 Problem Daytime somnolence R40.0 Active 1 [id number] Problem Bipolar affective disorder, remission status unspecified F31.9 Active 04160061 Problem Chronic post-traumatic stress disorder (PTSD) F43. 12 Active 531862964 Problem Bipolar 1 disorder, depressed, moderate F31.32 Active 17114354 Problem Schizoaffective disorder, bipolar type F25.0 Active 75857243 Problem Irritable bowel syndrome with both constipation and diarrh ea K58.2 Active 57954055 Problem Slow transit constipation K59.01 Acti ve 53594621 Problem Essential tremor G25.0 Active 609 401689 Problem Acute non-recurrent maxillary sinusitis J01.00 Active 34669471 Problem Back pain M54.9 Active 863529884 Problem Bipolar 1 disorder, depressed, partial remission F 31.75 Active 34372279 Problem Attention deficit hyperactiv ity disorder (ADHD), predominantly inattentive type F90.0 Active 36641806 Problem Bipolar I disorder with depression F31.9 Active 14401582 Problem Panlobular emphysema J43.1 Active 5542686 Problem Akathisia G25.71 Active 285921287 Problem Mild persistent asthma without complication J45.30 Active 960386114 Problem Moderate persistent asthma without complication J4 5.40 Active 495234660 ALLERGIES Substance Reaction Event Type Date Status Penicillin V Potassium Unknown Drug Allergy Nov, Activ e Effexor anaphylaxis Drug Allergy Nov, Active Darvocet-N 50 Unknown Drug Allergy Nov, Active Cefdinir Swelling Drug Allergy Nov, Active Benadryl vomiting/swelling Drug Allergy Nov, Active ENCOUNTERS Encounter Location Date Diagnosis [facility] [address] [id number] [address] [place] [id number] Mar, [facility] [address] [id number] [address] [place] [phone] Jan, [facility] [address] [id number] [address] [place] [phone] Jan, [facility] [address] [facility] [id number] [address] [place] [address] Jan, Abnormal mammogram of right breast R92.8 [facility] [address] [facility] [id number] [address] [place] [id number] Dec, Daytime somnolence R40.0 and Right otitis media with effusion H65.91 [facility] [address] [facility] [id number] [address] [place] [id number] Dec, [facility] [address] [facility] [id number] [address] [place] [id number] Dec, Cerebrovascular accident (CV A) due to occlusion of right cerebellar artery I63.541 [facility] [address] [id number] [address] [place] [id number] Dec, [facility] [address] [id number] [address] [place] [id number] Dec, [facility] [address] [id number] [address] [place] [id number] Nov, Bipolar 1 disorder, depresse d, partial remission F31.75 and Panic disorder with agoraphobia F40.01 [facility] [address] [id number] [address] [place] [id number] Nov, Panlobular emphysema J43.1 [facility] [address] [id number] [address] [place] [id number] Nov, Cerebrovascular accident (CV A) due to occlusion of right cerebellar artery I63.541 and Acute non-recurrent maxillary sinusitis J01.00 [facility] [address] [id number] [address] [place] [id number] Nov, Panlobular emphysema J43.1 [facility] [address] [id number] [address] [place] [id number] Nov, [facility] [address] [id number] [address] [place] [phone] Nov, [facility] [address] [id number] [address] [place] [phone] Nov, [facility] [address] [id number] [address] [place] [phone] Nov, [facility] [address] [id number] [address] [place] [phone] Nov, [facility] [address] [id number] [address] [place] [id number] Nov, [facility] [address] [id number] [address] [place] [id number] Nov, [facility] [address] [facility] [id number] [address] [place] [id number] Nov, Mild persistent asthma witho ut complication J45.30 and Irritable bowel syndrome with both constipation and diarrhea K58.2 [facility] [address] [facility] [id number] [address] [place] [id number] Nov, [facility] [address] [facility] [id number] [address] [place] [id number] Oct, [facility] [address] [facility] [id number] [address] [place] [id number] Oct, [facility] [address] [facility] [id number] [address] [place] [id number] Oct, Type 2 diabetes mellitus wit h diabetic neuropathy, unspecified whether senior living insulin use E11.40 ; Diabetes E11.9 ; Slow transit constipation K59.01 ; Edema of both legs R60.0 and Dysfunction of right eustachian tube H69.81 [facility] [address] [facility] [id number] [address] [place] [id number] Oct, Frequent headaches R51 [facility] [address] [facility] [id number] [address] [place] [id number] Oct, [facility] [address] [facility] [id number] [address] [place] [id number] Oct, [facility] [address] [facility] [id number] [address] [place] [phone] Oct, [facility] [address] [facility] [id number] [address] [place] [id number] Oct, [facility] [address] [facility] [id number] [address] [place] [id number] 15 Oct, 2017 [facility] [address] [facility] [id number] [address] [place] [id number] 14 Oct, 2017 [facility] [address] [facility] [id number] [address] [place] [id number] Oct, [facility] [address] [facility] [id number] [address] [place] [id number] Oct, [facility] [address] [facility] [id number] [address] [place] [phone] September, Frequent headaches R51 [facility] [address] [id number] [address] [place] [id number] September, Bilateral otitis media with effusion H65.93 ; Dizziness R42 and Essential tremor G25.0 [facility] [address] [facility] [id number] [address] [place] [id number] September, Chronic obstructive pulmonar y disease, unspecified COPD type J44.9 [facility] [address] [id number] [address] [place] [id number] September, Chronic obstructive pulmonar y disease, unspecified COPD type J44.9 [facility] [address] [id number] [address] [place] [id number] September, Migraine without aura and wi thout status migrainosus, not intractable G43.009 [facility] [address] [id number] [address] [place] [id number] September, [facility] [address] [id number] [address] [place] [phone] September, [facility] [address] [id number] [address] [place] [address] September, [facility] [address] [facility] [id number] [address] [place] [id number] September, Frequent headaches R51 [facility] [address] [facility] [id number] [address] [place] [id number] Aug, [facility] [address] [facility] [id number] [address] [place] [id number] Aug, Breast mass, right N63.10 [facility] [address] [id number] [address] [place] [id number] Aug, Breast lump N63.0 [address] [facility] [id number] [address] [place] [id number] Aug, [place] [address] [facility] [id number] [address] [place] [id number] Aug, Bipolar affective disorder, remission status unspecified F31.9 and Diabetes E11.9 [place] [address] [facility] [id number] [address] [place] [id number] Aug, Diabetes E11.9 ; Schizoaffec tive disorder, bipolar type F25.0 ; Pharyngitis due to other organism J02.8 ; Panlobular emphysema J43.1 and Irritable bowel syndrome with both constipation and diarrhea K58.2 [place] [address] [facility] [id number] [address] [place] [id number] Aug, Abnormal mammogram R92.8 [place] [address] [facility] [id number] [address] [place] [id number] Aug, [place] [address] [id number] [address] [place] [id number] Aug, Bipolar 1 disorder, depresse d, moderate F31.32 ; Panic disorder with agoraphobia F40.01 and Chronic post-traumatic stress disorder (PTSD) F43.12 [place] [address] [facility] [id number] [address] [place] [id number] Aug, [place] [address] [facility] [id number] [address] [place] [id number] Aug, [place] [address] [facility] [id number] [address] [place] [id number] Aug, [address] [address] [facility] [id number] [address] [place] [id number] Jul, [address] [address] [id number] [address] [place] [id number] Jul, Mild persistent asthma witho ut complication J45.30 [place] [id number] [id number] [address] [place] [id number] 19 Jul, 2017 Mild persistent asthma witho ut complication J45.30 [facility] [address] [facility] [id number] [address] [place] [id number] 15 Jul, 2017 Bipolar affective disorder, remission status unspecified F31.9 ; Diabetes E11.9 and Irritable bowel syndrome with constipation K58.1 [facility] [address] [facility] [id number] [address] [place] [id number] 13 Jul, 2017 [facility] [address] [facility] [id number] [address] [place] [id number] 09 Jul, 2017 [facility] [address] [facility] [id number] [address] [place] [id number] Jul, Frequent headaches R51 [facility] [address] [facility] [id number] [address] [place] [id number] Jul, [facility] [address] [facility] [id number] [address] [place] [id number] Jul, [facility] [address] [facility] [id number] [address] [place] [id number] Jul, [facility] [address] [facility] [id number] [address] [place] [address] Jul, Frequent headaches R51 ; Fib rocystic disease of left breast N60.12 ; Fibrocystic disease of right breast N60.11 and Diabetes E11.9 [facility] [address] [facility] [id number] [address] [place] [id number] Jul, [facility] [address] [facility] [id number] [address] [place] [id number] Jul, [facility] [address] [facility] [id number] [address] [place] [address] Jun, Exudative tonsillitis J03.90 [place] [address] [id number] [address] [place] [id number] Jun, [facility] [address] [facility] [id number] [address] [place] [id number] 19 Jun, 2017 [facility] [address] [id number] 15 Jun, 2017 Mild persistent asthma witho ut complication J45.30 ; Chronic obstructive pulmonary disease, unspecified COPD type J44.9 and Exudative tonsillitis J03.90 [facility] [address] [facility] [id number] [address] [address] 13 Jun, 2017 Encounter for immunization Z 23 [facility] [address] [facility] [id number] [address] [address] 12 Jun, 2017 [facility] [address] [id number] 12 Jun, 2017 [facility] [address] [address] 09 Jun, 2017 [facility] [address] [facility] [id number] [address] [place] [address] 06 Jun, 2017 Tonsillitis J03.90 [facility] [address] [address] 05 Jun, 2017 [facility] [address] [address] 03 Jun, 2017 Acute non-recurrent maxillar y sinusitis J01.00 [facility] [id number] [place] [id number] Jun, [facility] [address] [facility] [id number] [address] [place] [id number] May, [facility] [address] [address] May, [facility] [id number] [place] [id number] May, GERD (gastroesophageal reflu x disease) K21.9 [facility] [address] [facility] [id number] [address] [place] [address] May, Migraine without aura and wi thout status migrainosus, not intractable G43.009 [facility] [address] [facility] [id number] [address] [place] [id number] May, [facility] [address] [id number] [address] [place] [id number] May, [facility] [address] [id number] [address] [place] [id number] May, Panlobular emphysema J43.1 a nd Acute non-recurrent maxillary sinusitis J01.00 [place] [address] [id number] [address] [place] [id number] 04 May, 2017 Bipolar 1 disorder, depresse d, moderate F31.32 ; Panic disorder with agoraphobia F40.01 and Akathisia G25.71 [place] [id number] [place] [address] 27 Apr, 2017 [place] [address] [id number] [address] [place] [address] Apr, [place] [id number] [place] [address] Apr, Acute non-recurrent maxillar y sinusitis J01.00 [place] [address] [id number] [address] [place] [address] Apr, Panlobular emphysema J43.1 [place] [address] [id number] [address] [place] [id number] Apr, [facility] [address] [facility] [id number] [address] [place] [id number] 04 Apr, 2017 Exudative tonsillitis J03.90 and Sore throat J02.9 [place] [address] [id number] [address] [place] [id number] Mar, [facility] [address] [facility] [id number] [address] [place] [id number] Mar, Acute non-recurrent maxillar y sinusitis J01.00 [facility] [address] [facility] [id number] [address] [place] [address] Mar, [facility] [address] [facility] [id number] [address] [place] [address] Mar, Panlobular emphysema J43.1 a nd Diabetes E11.9 [facility] [address] [facility] [id number] [address] [place] [id number] 06 Mar, 2017 [facility] [address] [facility] [id number] [address] [place] [id number] 24 Feb, 2017 Wheezing R06.2 and Acute rec urrent pansinusitis J01.41 [facility] [address] [facility] [id number] [address] [place] [id number] Feb, [facility] [address] [facility] [id number] [address] [place] [address] Feb, Acute non-recurrent maxillar y sinusitis J01.00 [facility] [address] [facility] [id number] [address] [place] [id number] 16 Feb, 2017 Chronic obstructive pulmonar y disease, unspecified J44.9 [facility] [address] [facility] [id number] [address] [place] [address] Feb, Hypoxemia R09.02 and Chronic obstructive pulmonary disease, unspecified J44.9 [facility] [address] [id number] [address] [place] [id number] 28 Jan, 2017 Bipolar 1 disorder, depresse d, moderate F31.32 ; Panic disorder with agoraphobia F40.01 ; Chronic post-traumatic stress disorder (PTSD) F43.12 ; Diabetes E11.9 and Moderate persistent asthma without complication J45.40 [facility] [address] [facility] [id number] [address] [place] [address] Jan, [facility] [address] [id number] [address] [place] [address] Jan, Acute non-recurrent maxillar y sinusitis J01.00 [facility] [address] [id number] [address] [place] [id number] 18 Jan, 2017 [facility] [address] [id number] [address] [place] [id number] Jan, [facility] [address] [id number] [address] [place] [address] Jan, Moderate persistent asthma w ithout complication J45.40 and Hypoxemia R09.02 [facility] [address] [id number] [address] [place] [id number] Jan, Moderate persistent asthma w ithout complication J45.40 and Hypoxemia R09.02 [facility] [address] [id number] [address] [place] [address] Jan, [facility] [address] [id number] [address] [place] [address] Dec, Acute non-recurrent maxillar y sinusitis J01.00 [facility] [address] [id number] [address] [place] [id number] Dec, Chronic obstructive pulmonar y disease, unspecified J44.9 [facility] [address] [id number] [address] [place] [address] Dec, [facility] [address] [id number] [address] [place] [address] Dec, Mild persistent asthma witho ut complication J45.30 and Other chronic pain G89.29 [facility] [address] [id number] [address] [place] [id number] Nov, [facility] [address] [id number] [address] [place] [id number] Nov, Acute non-recurrent maxillar y sinusitis J01.00 [facility] [address] [id number] [address] [place] [address] Nov, [facility] [address] [id number] [address] [place] [id number] Nov, [facility] [address] [facility] [id number] [address] [place] [id number] Oct, [facility] [address] [facility] [id number] [address] [place] [address] Oct, Bipolar 1 disorder, depresse d, partial remission F31.75 ; Panic disorder with agoraphobia F40.01 and Chronic post-traumatic stress disorder (PTSD) F43.12 [facility] [address] [facility] [id number] [address] [place] [id number] Oct, Acute non-recurrent maxillar y sinusitis J01.00 [facility] [address] [facility] [id number] [address] [place] [id number] Oct, [facility] [address] [facility] [id number] [address] [place] [id number] Oct, Diabetes E11.9 [facility] [address] [facility] [id number] [address] [place] [address] September, Diabetes E11.9 [facility] [address] [facility] [id number] [address] [place] [phone] September, Diabetes E11.9 and Sinus tac hycardia R00.0 [facility] [address] [facility] [place] [id number] [address] [place] [id number] September, [facility] [address] [facility] [place] [id number] [address] [place] [phone] September, [facility] [address] [facility] [place] [id number] [address] [place] [phone] Aug, Diabetes E11.9 and Lumbago w ith sciatica, right side M54.41 [facility] [address] [facility] [place] [id number] [address] [place] [phone] Aug, [facility] [address] [facility] [place] [id number] [address] [place] [phone] Jul, Bipolar 1 disorder, depresse d, moderate F31.32 ; Panic disorder with agoraphobia F40.01 and Chronic post-traumatic stress disorder (PTSD) F43.12 [facility] [address] [facility] [place] [id number] [address] [place] [id number] Jul, Sore throat J02.9 [facility] [address] [facility] [place] [id number] [address] [place] [address] Jul, [facility] [address] [place] [id number] [address] [place] [id number] Jul, [facility] [address] [address] Jul, [facility] [address] [place] [id number] [address] [place] [id number] Jul, [facility] [address] [id number] [address] [place] [address] Jul, Sore throat J02.9 and Pharyn gitis, unspecified etiology J02.9 [facility] [address] [id number] [address] [place] [id number] Jun, [facility] [address] [id number] [address] [place] [address] Jun, Diabetes E11.9 [facility] [address] [id number] [address] [place] [address] Jun, [facility] [address] [id number] [address] [place] [id number] Jun, [facility] [address] [id number] [address] [place] [phone] Jun, [facility] [address] [id number] [address] [place] [id number] Jun, [facility] [address] [id number] [address] [place] [id number] 16 Jun, 2016 [facility] [address] [id number] [address] [place] [address] Jun, [facility] [address] [id number] [address] [place] [id number] 10 Jun, 2016 [facility] [address] [id number] [address] [place] [address] Jun, [facility] [address] [id number] [address] [place] [address] May, Diabetes E11.9 ; Other chron ic pain G89.29 ; Acute recurrent maxillary sinusitis J01.01 ; Bipolar I disorder with depression F31.9 and Anxiety disorder, unspecified F41.9 [facility] [address] [facility] [place] [id number] [address] [place] [address] May, [facility] [address] [facility] [place] [id number] [address] [place] [address] May, Diabetes E11.9 ; Bipolar I d isorder with depression F31.9 ; Anxiety disorder, unspecified F41.9 ; Other chronic pain G89.29 and Acute recurrent maxillary sinusitis J01.01 [facility] [address] [facility] [place] [id number] [address] [place] [id number] May, [facility] [address] [facility] [place] [id number] [address] [place] [address] May, Attention deficit hyperactiv ity disorder (ADHD), predominantly inattentive type F90.0 [facility] [address] [facility] [place] [id number] [address] [place] [address] May, [facility] [address] [facility] [place] [id number] [address] [place] [address] Apr, Attention deficit hyperactiv ity disorder (ADHD), predominantly inattentive type F90.0 and Non-seasonal allergic rhinitis due to other allergic trigger J30.89 [facility] [address] [id number] [address] [place] [id number] 15 Apr, 2016 Bipolar 1 disorder, depresse d, moderate F31.32 ; Panic disorder with agoraphobia F40.01 and Chronic post-traumatic stress disorder (PTSD) F43.12 [facility] [address] [id number] [address] [place] [id number] 06 Apr, 2016 Dental examination Z01.20 [place] [address] [id number] [address] [place] [address] Mar, [place] [address] [id number] [address] [place] [address] Mar, [place] [address] [facility] [place] [id number] [address] [place] [id number] Mar, Bipolar I disorder with depr ession F31.9 and Anxiety disorder, unspecified F41.9 [place] [address] [facility] [place] [id number] [address] [place] [address] Mar, Panic disorder with agorapho syd F40.01 ; Bipolar 1 disorder, depressed, moderate F31.32 and Chronic post-traumatic stress disorder (PTSD) F43.12 [place] [address] [facility] [place] [id number] [address] [place] [id number] 04 Mar, 2016 [place] [address] [facility] [place] [id number] [address] [place] [address] Mar, Dental caries K02.9 [place] [address] [facility] [place] [id number] [address] [place] [address] Feb, Lumbago with sciatica, left side M54.42 ; Lumbago with sciatica, right side M54.41 and Other chronic pain G89.29 [place] [address] [facility] [place] [id number] [address] [place] [address] Feb, [place] [address] [facility] [place] [id number] [address] [place] [id number] 14 Feb, 2016 [place] [address] [facility] [place] [id number] [address] [place] [address] Feb, Bipolar I disorder with depr ession F31.9 ; PTSD (post-traumatic stress disorder) F43.10 and Mood disorder F39 [facility] [address] [facility] [place] [id number] [address] [place] [address] Feb, [facility] [address] [facility] [place] [id number] [address] [place] [id number] 11 Feb, 2016 Dental examination Z01.20 [facility] [address] [facility] [place] [id number] [address] [place] [id number] 07 Feb, 2016 [facility] [address] [facility] [place] [id number] [address] [place] [id number] 03 Feb, 2016 Acute bronchitis, unspecifie d organism J20.9 [facility] [address] [place] [place] [id number] [address] [place] [id number] 26 Jan, 2016 Mood disorder F39 ; Migraine without aura and without status migrainosus, not intractable G43.009 ; Irritable bowel syndrome, unspecified type K58.9 ; Diabetes E11.9 and Encounter for immunization Z23 [facility] [address] [place] [place] [id number] [address] [place] [id number] 15 Jan, 2016 [facility] [address] [facility] [place] [id number] [address] [place] [phone] Jan, [facility] [address] [place] [id number] [address] [place] [address] Jan, [facility] [address] [facility] [place] [id number] [address] [place] [address] Jan, [facility] [address] [place] [place] [id number] [address] [place] [address] Jan, [facility] [address] [id number] [address] [place] [address] Dec, Bipolar I disorder with depr ession F31.9 ; PTSD (post-traumatic stress disorder) F43.10 and Panic disorder with agoraphobia F40.01 [facility] [address] [id number] [address] [place] [id number] Dec, Chronic obstructive pulmonar y disease, unspecified COPD type J44.9 ; Tremor R25.1 and Anxiety F41.9 [facility] [address] [id number] [address] [place] [address] Dec, [facility] [address] [id number] [address] [place] [id number] Nov, Tremors of nervous system R2 5.1 and Cramping of feet R25.2 [facility] [address] [id number] [address] [place] [id number] Nov, [facility] [address] [id number] [address] [place] [address] Nov, [facility] [address] [id number] [address] [place] [id number] Oct, Chronic obstructive pulmonar y disease, unspecified J44.9 [facility] [address] [id number] [address] [place] [id number] Oct, [facility] [address] [id number] [address] [place] [id number] Oct, Tremor R25.1 [facility] [address] [id number] [address] [place] [address] Oct, Bipolar I disorder with depr ession F31.9 ; Diabetes E11.9 ; PTSD (post-traumatic stress disorder) F43.10 and Panic disorder with agoraphobia F40.01 [facility] [address] [id number] [address] [place] [address] Oct, Mood disorder F39 [facility] [address] [id number] [address] [place] [id number] September, [facility] [address] [id number] [address] [place] [id number] 24 May, 2016 Diabetes E11.9 ; Bipolar I d isorder with depression F31.9 ; PTSD (post-traumatic stress disorder) F43.10 and Panic disorder with agoraphobia F40.01 [place] [address] [facility] [place] [id number] [address] [place] [address] September, Mood disorder F39 ; Schizoaf fective disorder, unspecified type F25.9 ; Arthritis M19.90 ; Tremor R25.1 ; Acute non-recurrent frontal sinusitis J01.10 and Blood in stool K92.1 [place] [address] [facility] [place] [id number] [address] [place] [id number] September, [place] [address] [facility] [place] [id number] [address] [place] [id number] September, Chronic obstructive pulmonar y disease, unspecified J44.9 [place] [address] [place] [id number] [address] [place] [address] September, Diabetes E11.9 [place] [address] [place] [id number] [address] [place] [address] Aug, Other bipolar disorder F31.8 9 and Anxiety disorder, unspecified F41.9 [place] [address] [facility] [place] [id number] [address] [place] [id number] Aug, [place] [address] [place] [id number] [address] [place] [address] Aug, Diabetes E11.9 [place] [address] [facility] [place] [id number] [address] [place] [id number] 18 Aug, 2015 [place] [address] [place] [id number] [address] [place] [id number] 14 Aug, 2015 Diabetes E11.9 ; Fatigue R53 .83 and Dizziness R42 [place] [address] [facility] [place] [id number] [address] [place] [id number] 13 Aug, 2015 Other bipolar disorder F31.8 9 [place] [address] [place] [id number] [address] [place] [phone] Aug, Generalized anxiety disorder F41.1 [facility] [address] [id number] [address] [place] [phone] Aug, Other bipolar disorder F31.8 9 and Anxiety disorder, unspecified F41.9 [facility] [address] [id number] [address] [place] [address] Aug, [facility] [address] [id number] [address] [place] [id number] Jul, [facility] [address] [id number] [address] [place] [id number] Jul, [facility] [address] [id number] [address] [place] [id number] Jul, Bronchitis J40 [facility] [address] [facility] [place] [id number] [address] [place] [address] Jul, Anxiety disorder F41.9 [facility] [address] [id number] [address] [place] [id number] Jul, Other bipolar disorder F31.8 9 and Anxiety disorder, unspecified F41.9 [facility] [address] [id number] [address] [place] [id number] Jul, Other bipolar disorder F31.8 9 and Fibromyalgia M79.7 [facility] [address] [id number] [address] [place] [phone] Jul, [facility] [address] [id number] [address] [place] [address] Jul, [facility] [address] [id number] [address] [place] [id number] Jul, [facility] [address] [id number] [address] [place] [address] Jul, Other bipolar disorder F31.8 9 and Anxiety disorder, unspecified F41.9 [facility] [address] [id number] [address] [place] [id number] Jun, GERD (gastroesophageal reflu x disease) K21.9 [facility] [address] [id number] [address] [place] [address] Jun, [facility] [address] [facility] [place] [id number] [address] [place] [address] May, [facility] [address] [facility] [place] [id number] [address] [place] [address] May, Diabetes E11.9 ; Back pain M 54.9 ; GERD (gastroesophageal reflux disease) K21.9 ; Hypertension I10 and Peripheral neuropathy G62.9 [facility] [address] [id number] [address] [place] [id number] Mar, [facility] [address] [facility] [place] [id number] [address] [place] [address] Mar, [facility] [address] [facility] [place] [id number] [address] [place] [id number] Mar, Acute sinusitis J01.90 and O titis media, left H66.92 [facility] [address] [facility] [place] [id number] [address] [place] [address] Feb, [facility] [address] [facility] [place] [id number] [address] [place] [phone] Feb, [facility] [address] [facility] [place] [id number] [address] [place] [address] Feb, [facility] [address] [facility] [place] [id number] [address] [place] [id number] Feb, [facility] [address] [facility] [place] [id number] [address] [place] [address] 29 Jan, 2015 [facility] [address] [facility] [place] [id number] [address] [place] [address] 24 Jan, 2015 Diabetes 250.00 and Back higinio n 724.5 [facility] [address] [facility] [place] [id number] [address] [place] [address] Jan, [facility] [address] [facility] [place] [id number] [address] [place] [address] Dec, Diabetes 250.00 ; Benign ess ential hypertension 401.1 and Allergic rhinitis 477.9 [facility] [address] [facility] [place] [id number] [address] [place] [id number] Dec, [facility] [address] [place] [id number] [address] [place] [address] Dec, [facility] [address] [place] [id number] [address] [place] [address] Dec, Psychosis 298.9 [facility] [address] [place] [id number] [place] [address] Dec, Medication side effect 995.2 0 and Generalized anxiety disorder 300.02 [facility] [address] [place] [id number] [address] [place] [address] Dec, Acquired cognitive dysfuncti on 294.9 [facility] [address] [place] [id number] [address] [place] [id number] Dec, [facility] [address] [place] [id number] [address] [place] [address] Dec, Unspecified myalgia and myos itis 729.1 and Generalized anxiety disorder 300.02 [facility] [address] [place] [id number] [address] [place] [id number] Nov, [facility] [address] [place] [id number] [address] [place] [address] Nov, [facility] [address] [place] [id number] [address] [place] [address] Nov, [facility] [address] [place] [id number] [address] [place] [id number] Nov, Upper respiratory infection 465.9 and Chronic airway obstruction, not elsewhere classified 496 [facility] [address] [place] [id number] [address] [place] [address] Nov, Hyponatremia 276.1 [facility] [address] [id number] [address] [place] [address] Oct, [facility] [address] [id number] [address] [place] [id number] Oct, [facility] [address] [facility] [place] [id number] [address] [place] [phone] Oct, [facility] [address] [id number] [address] [place] [id number] Oct, [facility] [address] [facility] [place] [id number] [address] [place] [address] Oct, Hyponatremia 276.1 [facility] [address] [facility] [place] [id number] [address] [place] [address] Oct, [facility] [address] [facility] [place] [id number] [address] [place] [address] Oct, [facility] [address] [facility] [place] [id number] [address] [place] [address] Oct, Generalized anxiety disorder 300.02 [facility] [address] [facility] [place] [id number] [address] [place] [address] Oct, Generalized anxiety disorder 300.02 and Diabetes 250.00 [facility] [address] [facility] [place] [id number] [address] [place] [address] Aug, [facility] [address] [facility] [place] [id number] [address] [place] [address] Aug, [facility] [address] [id number] [address] [place] [id number] Jul, [facility] [address] [facility] [id number] [address] [place] [id number] Jul, [facility] [address] [facility] [place] [id number] [address] [place] [id number] Jun, [facility] [address] [facility] [place] [id number] [address] [place] [id number] Jun, [facility] [address] [id number] [address] [place] [address], [place] [address] Jun, [facility] [address] [id number] [address] [place] [address], [place] [address] Jun, [facility] [address] [id number] [address] [place] [address], [place] [address] Jun, [facility] [address] [id number] [address] [place] [address], [place] [address] May, [facility] [address] [id number] [address] [place] [address], [place] [address] May, [facility] [address] [id number] [address] [place] [address], [place] [address] Apr, [facility] [address] [id number] [address] [place] [address], [place] [address] Apr, [facility] [address] [id number] [address] [place] [address], [place] [address] Apr, [facility] [address] [id number] [address] [place] [address], [place] [address] Apr, [facility] [address] [id number] [address] [place] [address], [place] [address] Apr, [facility] [address] [id number] [address] [place] [address], [place] [address] Apr, [facility] [address] [id number] [address] [place] [address], [place] [address] Apr, [facility] [address] [id number] [address] [place] [address], [place] [address] Apr, [facility] [address] [id number] [address] [place] [address], [place] [address] Feb, [facility] [address] [id number] [address] [place] [address], [place] [address] Feb, [facility] [address] [id number] [address] [place] [address], [place] [address] Jan, [facility] [address] [id number] [address] [place] [address], [place] [address] Jan, [facility] [address] [id number] [address] [place] [address], [place] [address] Dec, [facility] [address] [id number] [address] [place] [address], [place] [address] Dec, [facility] [address] [id number] [address] [place] [address], [place] [address] Dec, [facility] [address] [id number] [address] [place] [address], [place] [address] Nov, [facility] [address] [id number] [address] [place] [address], [place] [address] Nov, [facility] [address] [id number] [address] [place] [address], [place] [address] Nov, [facility] [address] [id number] [address] [place] [address], [place] [address] Oct, [facility] [address] [id number] [address] [place] [address], [place] [address] Oct, [facility] [address] [id number] [address] [place] [address], [place] [address] Oct, [facility] [address] [id number] [address] [place] [address], [place] [address] September, [facility] [address] [id number] [address] [place] [address], [place] [address] September, [facility] [address] [id number] [address] [place] [address], [place] [address] September, [facility] [address] [id number] [address] [place] [address], [place] [address] Aug, [facility] [address] [id number] [address] [place] [address], [place] [address] Aug, [facility] [address] [id number] [address] [place] [address], [place] [address] 19 Aug, 2011 [facility] [address] [id number] [address] [place] [address], [place] [address] 16 Aug, 2011 [facility] [address] [id number] [address] [place] [address], [place] [address] Jul, [facility] [address] [id number] [address] [place] [address], [place] [address] Jun, [facility] [address] [id number] [address] [place] [address], [place] [address] 14 Jun, 2011 [facility] [address] [id number] [address] [place] [address], [place] [address] 13 Jun, 2011 [facility] [address] [id number] [address] [place] [address], [place] [address] 07 Jun, 2011 [facility] [address] [id number] [address] [place] [address], [place] [address] 03 Jun, 2011 [facility] [address] [id number] [address] [place] [address], [place] [address] May, [facility] [address] [id number] [address] [place] [address], [place] [address] May, [facility] [address] [id number] [address] [place] [address], [place] [address] May, [facility] [address] [id number] [address] [place] [address], [place] [address] May, [facility] [address] [id number] [address] [place] [address], [place] [address] Apr, [facility] [address] [id number] [address] [place] [address], [place] [id number] Apr, [facility] [address] [id number] [address] [place] [address], [place] [phone] 05 Apr, 2011 [facility] [address] [id number] [address] [place] [phone] Mar, [facility] [address] [id number] [address] [place] [address], [place] [id number] Mar, [facility] [address] [id number] [address] [place] [address], [place] [phone] Mar, [facility] [address] [id number] [address] [place] [address], [place] [phone] 13 Feb, 2011 [facility] [address] [id number] [address] [place] [address], [place] [address] Feb, [facility] [address] [id number] [address] [place] [address], [place] [address] Feb, [facility] [address] [id number] [address] [place] [address], [place] [phone] Nov, [facility] [address] [id number] [address] [place] [address], [place] [address] September, [facility] [address] [id number] [address] [place] [phone] Aug, [facility] [address] [id number] [address] [place] [address], [place] [address] 14 Jul, 2010 [facility] [address] [id number] [address] [place] [phone] May, [facility] [address] [id number] [address] [place] [phone] Apr, [facility] [address] [id number] [address] [place] [phone] 30 Apr, 2010 [facility] [address] [id number] [address] [place] [phone] Apr, [facility] [address] [id number] [address] [place] [phone] Apr, [facility] [address] [id number] [address] [place] [phone] Apr, IMMUNIZATIONS No Known Immunizations SOCIAL HISTORY Never Assessed REASON FOR VISIT Pain management (chronic)-jonnathanMA, had stroke on the 11/18/2017 PLAN OF CARE VITAL SIGNS Height 66 in 2017-12-02 Weight 102.2 lbs 2017-12-02 Temperature 99.3 degrees Fahrenheit 2017-12-02 Heart Rate 126 bpm 2017-12-02 Respiratory Rate 20 2017-12-02 BMI 16.49 kg/m2 2017-12-02 Blood pressure systolic 120 mmHg 2017-12-02 Blood pressure diastolic 76 mmHg 2017-12-02 MEDICATIONS Medication Instructions Dosage Frequency Start Date End Date Duration S tatus Lorazepam 2 MG Orally in the AM and noon and 4pm 1 tablet Jul, 28 days Active Lincoln 7.5-325 MG Orally 3 times a day 1 tablet as needed 8h Nov, 28 days Active Trazodone HCl 100 mg Orally for sleep 1 tablet at bedtime Jan Active Flonase 50 mcg/act 1 spray in each nostril 12h Apr, Active Xopenex 1.25 MG/3ML Inhalation 4 times a day prn 3 ml Dec, 30 days Active Gabapentin 800 MG Orally Three times a day 1 tablet 8h Jul, Active Benztropine Mesylate 0.5 MG Orally 3 times a day-Q AM, 4pm and bedtime for restlessness 1 tablet Mar, Active Sudafed 30 MG Orally every 6 hrs 1 tablet as needed 6h September, Not-Taking Glucosamine 1000 MG Orally Once a day 2 capsules 24h Not-Taking Nebulizer 1 as directed Jul, Act minoo MiraLax - Orally 3 times a day until you have a BM then Reduce to once daily. 17 grams mixed with 8 oz of fluid 30 days Active Gaviscon 80-14.2 MG Orally 4 times a day 4 tablet 6h Not-Taking Nicoderm CQ 21 MG/24HR Transdermal Once a day x42 days 1 patch to skin Not-Taking Adderall XR 20 mg Orally Once a day for depression 1 capsule in the morning Nov, 28 days Active Qvar 80 MCG/ACT Inhalation Twice a day 1 puff 12h Oct, 30 days Active Aspir-81 81 MG Orally Once a day 1 tablet 24h Active Topiramate 50 mg Orally Twice a day 1 tablet 12h Nov, 30 day(s) Active Multivitamin Adult - Act minoo Guaifenesin 400 mg Orally every 4 hrs 1 tablet 4h Not-Taking Propranolol HCl 20 mg Orally Twice a day 1 tablet 12h September, 30 day(s) Not-Taking Ibuprofen 600 MG TAKE ONE TABLET BY MOUTH THREE TIMES DAILY 33 Not-Taking Nicotine Polacrilex 4 MG Mouth/Throat 20 time(s) a day 1 lozenge as n eeded Not-Taking Cetirizine HCl 10 mg Orally Once a day 1 tablet 24h Apr, 30 day(s) Not-Taking Atorvastatin Calcium 10 MG Orally Once a day 1 tablet 24h Active Calcium 600 + D 600-200 MG-UNIT Active Ondansetron 4 MG Orally every 8 hrs PRN 1 tablet on the t ongue and allow to dissolve Apr, 30 days Active Anoro Ellipta 62.5-25 MCG/INH Inhalation Once a day 1 puff 24h Oct, 30 days Active Diclofenac Sodium 1 % Transdermal Four times a day 2-4- grams to affected areas 6h Jun, 30 days Active Baclofen 20 MG Orally Three times a day 1 tablet with food or milk 8h 30 Active Amlodipine Besylate 5 MG Orally Once a day 1 tablet 24h Active Lisinopril 40 MG Orally Once a day 1 tablet 24h Active Dicyclomine HCl 20 mg Orally Four times a day 1 tablet 6h 2017 30 day(s) Active Singulair 10 mg Orally Once a day 1 tablet in the evening 24h Oct, 30 day(s) Active Nexium 40 mg 1 capsule 24h Active Insulin Pen Needle 32G X 6 MM as directed 24h Oct, Active BusPIRone HCl 15 mg Orally 3 times a day for anxiety 1 tablet Jan, Active Hydrochlorothiazide 12.5 MG Orally Once a day 1 tablet in the morni ng 24h Oct, 30 day(s) Not-Taking Zithromax Z-Ricardo 250 MG Orally Once a day 2 tablets on the first day, then 1 tablet daily for 4 days 24h Nov, Nov, 5 day(s) Acti ve Lamictal 100 mg Orally 2 times a day for depression 1 tablet September, Active Metformin HCl 1000 MG Orally Twice a day 1 tablet with meals 12h Aug, 30 day(s) Active Levemir FlexTouch 100 UNIT/ML Subcutaneous Once a day 7 units 24h September, 30 days Active Clonidine HCl 0.1 MG 1 tablet 8h Ac tive Amitiza 8 MCG Orally Twice a day 1 capsule with food 12h Nov, 30 day(s) Active Loxapine Succinate 10 mg Orally twice a day for mood 1 capsule Active Ventolin HFA 108 (90 Base) MCG/ACT Inhalation every 4 hrs 2 puffs a s needed 4h Dec, Active Metoprolol Tartrate 50 mg Orally Twice a day TAKE ONE TABLE T BY MOUTH TWICE DAILY WITH FOOD 12h Active [id number]-[id number]-[id number] 50-325-40 MG Orally 3 times a day 1 cap yg as needed 8h Jun, Active RESULTS No Results PROCEDURES Procedure Date Ordered Result Body Site [facility] VISIT ESTABLISHED PATIENT December 02, 2017 INSTRUCTIONS MEDICATIONS ADMINISTERED No Known Medications [...]
--- OUTSIDE RECORDS SUMMARY | 2019-07-17 11:29 | XMS REPORT ---
Author Author Sujey WILLS Organization 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 Middleware Solutions Architect Name Role Phone JOHANNGISELEYVON Unavailable PROBLEMS Type Condition ICD9-CM Code BIN96-JK Code Onset Dates Condition S tatus SNOMED Code Problem Diabetes E11.9 Active 20143402 Problem GERD (gastroesophageal reflux disease) K21.9 Active 744571006 Problem Anxiety disorder, unspecified F41.9 Active 963690962 Problem Hypertension I10 Active 3247723 3 Problem Other bipolar disorder F31.89 Active 32894730 Problem Fibromyalgia M79.7 Active 0200960 7 Problem Panic disorder with agoraphobia F40.01 Active 33421952 Problem Chronic obstructive pulmonary disease, unspecified J44.9 Active 73731479 Problem Lumbago with sciatica, left side M54.42 Active 092048199 Problem Migraine without aura and without status migrain osus, not intractable G43.009 Active 851947952 Problem Lumbago with sciatica, right side M54.41 Active 990872538 Problem Fibrocystic disease of right breast N60.11 Active 91060751 Problem Other chronic pain G89.29 Active 8 1044399 Problem Fibrocystic disease of left breast N60.12 Active 81953817 Problem Irritable bowel syndrome with constipation K58.1 Active 365405953 Problem Arthritis M19.90 Active 8365603 Problem Abnormal mammogram of right breast R92.8 Active 954684488 Problem Daytime somnolence R40.0 Active 1 [id number] Problem Bipolar affective disorder, remission status unspecified F31.9 Active 15128141 Problem Chronic post-traumatic stress disorder (PTSD) F43. 12 Active 190786964 Problem Bipolar 1 disorder, depressed, moderate F31.32 Active 70475505 Problem Schizoaffective disorder, bipolar type F25.0 Active 39636644 Problem Irritable bowel syndrome with both constipation and diarrh ea K58.2 Active 35572174 Problem Slow transit constipation K59.01 Acti ve 88650497 Problem Essential tremor G25.0 Active 609 243010 Problem Acute non-recurrent maxillary sinusitis J01.00 Active 73984056 Problem Back pain M54.9 Active 264393402 Problem Bipolar 1 disorder, depressed, partial remission F 31.75 Active 60866353 Problem Attention deficit hyperactiv ity disorder (ADHD), predominantly inattentive type F90.0 Active 65463257 Problem Bipolar I disorder with depression F31.9 Active 57428052 Problem Panlobular emphysema J43.1 Active 7621756 Problem Akathisia G25.71 Active 485605167 Problem Mild persistent asthma without complication J45.30 Active 426952603 Problem Moderate persistent asthma without complication J4 5.40 Active 294268859 ALLERGIES No Information ENCOUNTERS Encounter Location Date Diagnosis [place] [address] [facility] [id number] [address] [place] [phone] Mar, [place] [address] [facility] [id number] [address] [place] [phone] Jan, [place] [address] [facility] [id number] [address] [place] [phone] Jan, [place] [address] [facility] [id number] [address] [place] [phone] Jan, Abnormal mammogram of right breast R92.8 [place] [address] [facility] [id number] [address] [place] [id number] Dec, Daytime somnolence R40.0 and Right otitis media with effusion H65.91 [facility] [address] [id number] [address] [place] [id number] Dec, [place] [address] [facility] [id number] [address] [place] [phone] Dec, Cerebrovascular accident (CV A) due to occlusion of right cerebellar artery I63.541 [place] [address] [facility] [id number] [address] [place] [phone] Dec, [place] [address] [facility] [id number] [address] [place] [id number] Dec, [facility] [address] [id number] [address] [place] [id number] Nov, Bipolar 1 disorder, depresse d, partial remission F31.75 and Panic disorder with agoraphobia F40.01 [facility] [address] [id number] [address] [place] [phone] Nov, Panlobular emphysema J43.1 [facility] [address] [id number] [address] [place] [id number] Nov, Cerebrovascular accident (CV A) due to occlusion of right cerebellar artery I63.541 and Acute non-recurrent maxillary sinusitis J01.00 [facility] [address] [id number] [address] [place] [phone] Nov, Panlobular emphysema J43.1 [facility] [address] [id number] [address] [place] [phone] Nov, [facility] [address] [id number] [address] [place] [phone] Nov, [facility] [address] [id number] [address] [place] [phone] Nov, [facility] [address] [id number] [address] [place] [id number] Nov, [facility] [address] [id number] [address] [place] [phone] Nov, [facility] [address] [id number] [address] [place] [phone] Nov, [facility] [address] [facility] [id number] [address] [place] [phone] Nov, [facility] [address] [id number] [address] [place] [id number] Nov, Mild persistent asthma witho ut complication J45.30 and Irritable bowel syndrome with both constipation and diarrhea K58.2 [facility] [address] [id number] [address] [place] [phone] Nov, [facility] [address] [id number] [address] [place] [phone] Oct, [facility] [address] [facility] [id number] [address] [place] [phone] Oct, [facility] [address] 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 [address] [facility] [id number] [address] [place] [id number] Oct, Frequent headaches R51 [facility] [address] [id number] [address] [place] [phone] Oct, [facility] [address] [id number] [address] [place] [id number] Oct, [facility] [address] [id number] [address] [place] [phone] Oct, [facility] [address] [facility] [id number] [address] [place] [address] Oct, [facility] [address] [facility] [id number] [address] [place] [phone] Oct, [facility] [address] [id number] [address] [place] [phone] Oct, [facility] [address] [facility] [id number] [address] [place] [phone] Oct, [facility] [address] [facility] [id number] [address] [place] [phone] Oct, [facility] [address] [facility] [id number] [address] [place] [phone] September, Frequent headaches R51 [facility] [address] [facility] [id number] [address] [place] [id number] September, Bilateral otitis media with effusion H65.93 ; Dizziness R42 and Essential tremor G25.0 [facility] [address] [facility] [id number] [address] [place] [phone] September, Chronic obstructive pulmonar y disease, unspecified COPD type J44.9 [facility] [address] [facility] [id number] [address] [place] [phone] September, Chronic obstructive pulmonar y disease, unspecified COPD type J44.9 [facility] [address] [facility] [id number] [address] [place] [id number] September, Migraine without aura and wi thout status migrainosus, not intractable G43.009 [facility] [address] [facility] [id number] [address] [place] [id number] September, [facility] [address] [facility] [id number] [address] [place] [phone] September, [facility] [address] [place] [id number] [address] [place] [id number] September, [facility] [address] [facility] [id number] [address] [place] [phone] September, Frequent headaches R51 [facility] [address] [facility] [id number] [address] [place] [id number] Aug, [facility] [address] [facility] [id number] [address] [place] [id number] Aug, Breast mass, right N63.10 [facility] [address] [place] [id number] [address] [place] [id number] Aug, Breast lump N63.0 [facility] [address] [facility] [id number] [address] [place] [phone] Aug, [facility] [address] [facility] [id number] [address] [place] [phone] Aug, Bipolar affective disorder, remission status unspecified F31.9 and Diabetes E11.9 [place] [address] [facility] [id number] [address] [place] [phone] Aug, Diabetes E11.9 ; Schizoaffec tive disorder, bipolar type F25.0 ; Pharyngitis due to other organism J02.8 ; Panlobular emphysema J43.1 and Irritable bowel syndrome with both constipation and diarrhea K58.2 [place] [address] [facility] [id number] [address] [place] [phone] Aug, Abnormal mammogram R92.8 [place] [address] [facility] [id number] [address] [place] [id number] Aug, [place] [address] [facility] [id number] [address] [place] [id number] Aug, Bipolar 1 disorder, depresse d, moderate F31.32 ; Panic disorder with agoraphobia F40.01 and Chronic post-traumatic stress disorder (PTSD) F43.12 [place] [address] [facility] [id number] [address] [place] [phone] Aug, [place] [address] [facility] [id number] [address] [place] [phone] Aug, [place] [address] [facility] [id number] [address] [place] [phone] Aug, [place] [address] [facility] [id number] [address] [place] [phone] Jul, [place] [address] [facility] [id number] [address] [place] [id number] Jul, Mild persistent asthma witho ut complication J45.30 [place] [address] [facility] [id number] [address] [place] [id number] Jul, Mild persistent asthma witho ut complication J45.30 [place] [address] [facility] [id number] [address] [place] [phone] Jul, Bipolar affective disorder, remission status unspecified F31.9 ; Diabetes E11.9 and Irritable bowel syndrome with constipation K58.1 [facility] [address] [id number] [address] [place] [id number] 13 Jul, 2017 [facility] [address] [id number] [address] [place] [phone] Jul, [facility] [address] [id number] [address] [place] [phone] Jul, Frequent headaches R51 [facility] [address] [id number] [address] [place] [phone] Jul, [facility] [address] [facility] [id number] [address] [place] [phone] Jul, [facility] [address] [facility] [id number] [address] [place] [id number] Jul, [facility] [address] [facility] [id number] [address] [place] [phone] Jul, Frequent headaches R51 ; Fib rocystic disease of left breast N60.12 ; Fibrocystic disease of right breast N60.[address] [facility] [address] [facility] [id number] [address] [place] [phone] Jul, [facility] [address] [id number] [address] [place] [phone] Jul, [facility] [address] [facility] [id number] [address] [place] [id number] Jun, Exudative tonsillitis J03.90 [facility] [address] [facility] [id number] [address] [place] [phone] Jun, [facility] [address] [facility] [id number] [address] [place] [id number] Jun, [facility] [address] [facility] [id number] [address] [place] [id number] 15 Jun, 2017 Mild persistent asthma witho ut complication J45.30 ; Chronic obstructive pulmonary disease, unspecified COPD type J44.9 and Exudative tonsillitis J03.90 [facility] [address] [id number] 13 Jun, 2017 Encounter for immunization Z 23 [facility] [address] [id number] 12 Jun, 2017 [facility] [address] [id number] 12 Jun, 2017 [facility] [address] [id number] 09 Jun, 2017 [facility] [address] [id number] 06 Jun, [address] [facility] [address] [address] 05 Jun, 2017 [facility] [address] [id number] 03 Jun, 2017 Acute non-recurrent maxillar y sinusitis J01.00 [place] [address] [id number] 02 Jun, 2017 [facility] [address] [id number] May, [facility] [address] [address] May, [facility] [address] [id number] May, GERD (gastroesophageal reflu x disease) K21.9 [facility] [address] [address] May, Migraine without aura and wi thout status migrainosus, not intractable G43.009 [facility] [address] [place] [address] May, [facility] [address] [facility] [id number] [address] [place] [phone] May, [facility] [address] [facility] [id number] [address] [place] [id number] May, Panlobular emphysema J43.1 a nd Acute non-recurrent maxillary sinusitis J01.00 [facility] [address] [facility] [id number] [address] [place] [id number] May, Bipolar 1 disorder, depresse d, moderate F31.32 ; Panic disorder with agoraphobia F40.[address] [facility] [address] [facility] [id number] [address] [place] [id number] 27 Apr, 2017 [facility] [address] [place] [id number] [address] [place] [id number] Apr, [facility] [address] [place] [id number] [address] [place] [id number] Apr, Acute non-recurrent maxillar y sinusitis J01.00 [facility] [address] [facility] [id number] [address] [place] [id number] 07 Apr, [address]1 [facility] [address] [facility] [id number] [address] [place] [id number] 04 Apr, 2017 [facility] [address] [facility] [id number] [address] [place] [id number] 04 Apr, 2017 Exudative tonsillitis J03.90 and Sore throat J02.9 [facility] [address] [facility] [id number] [address] [place] [id number] Mar, [facility] [address] [facility] [id number] [address] [place] [id number] 15 Mar, 2017 Acute non-recurrent maxillar y sinusitis J01.00 [facility] [address] [facility] [id number] [address] [place] [id number] Mar, [facility] [address] [facility] [id number] [address] [place] [phone] Mar, Panlobular emphysema J43.1 a nd Diabetes E11.9 [facility] [address] [facility] [id number] [address] [place] [id number] 06 Mar, 2017 [facility] [address] [facility] [id number] [address] [place] [id number] 24 Feb, 2017 Wheezing R06.2 and Acute rec urrent pansinusitis J01.41 [facility] [address] [facility] [id number] [address] [place] [id number] Feb, [facility] [address] [facility] [id number] [address] [place] [id number] Feb, Acute non-recurrent maxillar y sinusitis J01.00 [facility] [address] [facility] [id number] [address] [place] [id number] Feb, Chronic obstructive pulmonar y disease, unspecified J44.9 [facility] [address] [facility] [id number] [address] [place] [id number] 02 Feb, 2017 Hypoxemia R09.02 and Chronic obstructive pulmonary disease, unspecified J44.9 [facility] [address] [place] [id number] [address] [place] [id number] 28 Jan, 2017 Bipolar 1 disorder, depresse d, moderate F31.32 ; Panic disorder with agoraphobia F40.01 ; Chronic post-traumatic stress disorder (PTSD) F43.12 ; Diabetes E11.9 and Moderate persistent asthma without complication J45.40 [facility] [address] [facility] [id number] [address] [place] [id number] Jan, [facility] [address] [place] [id number] [address] [place] [id number] 19 Jan, 2017 Acute non-recurrent maxillar y sinusitis J01.00 [facility] [address] [place] [id number] [address] [place] [id number] Jan, [facility] [address] [id number] [address] [place] [id number] Jan, [facility] [address] [id number] [address] [place] [id number] Jan, Moderate persistent asthma w ithout complication J45.[address] [facility] [address] [id number] [address] [place] [id number] Jan, Moderate persistent asthma w ithout complication J45.[address] [facility] [address] [id number] [address] [place] [id number] Jan, [facility] [address] [id number] [address] [place] [id number] Dec, Acute non-recurrent maxillar y sinusitis J01.00 [facility] [address] [id number] [address] [place] [id number] Dec, Chronic obstructive pulmonar y disease, unspecified J44.9 [facility] [address] [id number] [address] [place] [id number] Dec, [facility] [address] [id number] [address] [place] [id number] Dec, Mild persistent asthma witho ut complication J45.30 and Other chronic pain G89.29 [facility] [address] [id number] [address] [place] [phone] Nov, [facility] [address] [id number] [address] [place] [phone] Nov, Acute non-recurrent maxillar y sinusitis J01.00 [facility] [address] [id number] [address] [place] [id number] Nov, [facility] [address] [id number] [address] [place] [phone] Nov, [facility] [address] [id number] [address] [place] [id number] Oct, [facility] [address] [facility] [id number] [address] [place] [id number] Oct, Bipolar 1 disorder, depresse d, partial remission F31.75 ; Panic disorder with agoraphobia F40.01 and Chronic post-traumatic stress disorder (PTSD) F43.12 [place] [address] [address] [place] [id number] [address] [place] [id number] Oct, Acute non-recurrent maxillar y sinusitis J01.00 [place] [address] [facility] [id number] [address] [place] [id number] Oct, [place] [address] [place] [id number] [address] [place] [id number] Oct, Diabetes E11.9 [place] [address] [place] [id number] [address] [place] [phone] September, Diabetes E11.9 [place] [address] [facility] [id number] [address] [place] [phone] September, Diabetes E11.9 and Sinus tac hycardia R00.0 [place] [address] [facility] [id number] [address] [place] [id number] September, [place] [address] [place] [id number] [address] [place] [id number] September, [place] [address] [place] [id number] [address] [place] [id number] Aug, Diabetes E11.9 and Lumbago w ith sciatica, right side M54.41 [place] [address] [facility] [id number] [address] [place] [id number] Aug, [place] [address] [place] [id number] [address] [place] [phone] Jul, Bipolar 1 disorder, depresse d, moderate F31.32 ; Panic disorder with agoraphobia F40.01 and Chronic post-traumatic stress disorder (PTSD) F43.12 [facility] [address] [id number] [address] [place] [id number] Jul, Sore throat J02.9 [facility] [address] [id number] [address] [place] [phone] Jul, [facility] [address] [facility] [id number] [address] [place] [phone] Jul, [facility] [address] [id number] [address] [place] [phone] Jul, [facility]. [facility] [address] [id number] [address] [place] [id number] Jul, [facility] [address] [facility] [id number] [address] [place] [id number] Jul, Sore throat J02.9 and Pharyn gitis, unspecified etiology J02.9 [facility] [address] [id number] [address] [place] [id number] [address], [address] [facility] [address] [id number] [address] [place] [id number] 23 Jun, [address] [facility] [address] [facility] [id number] [address] [place] [id number] [address], [address] [facility] [address] [id number] [address] [place] [phone] Jun, [facility] [address] [id number] [address] [place] [phone] Jun, [facility] [address] [facility] [id number] [address] [place] [phone] Jun, [facility] [address] [facility] [id number] [address] [place] [id number] [address], [address] [facility] [address] [facility] [id number] [address] [place] [id number] [address], [address] [facility] [address] [facility] [id number] [address] [place] [id number] [address], [address] [facility] [address] [facility] [id number] [address] [place] [id number] Jun, [place] [id number] [facility] [id number] [address] [place] [id number] May, Diabetes E11.9 ; Other chron ic pain G89.29 ; Acute recurrent maxillary sinusitis J01.01 ; Bipolar I disorder with depression F31.9 and Anxiety disorder, unspecified F41.9 [place] [address] [facility] [id number] [address] [place] [phone] May, [place] [address] [facility] [id number] [address] [place] [id number] May, Diabetes E11.9 ; Bipolar I d isorder with depression F31.9 ; Anxiety disorder, unspecified F41.9 ; Other chronic pain G89.29 and Acute recurrent maxillary sinusitis J01.01 [place] [address] [facility] [id number] [address] [place] [id number] May, [place] [address] [facility] [id number] [address] [place] [phone] May, Attention deficit hyperactiv ity disorder (ADHD), predominantly inattentive type F90.0 [place] [address] [place] [id number] [address] [place] [phone] May, [place] [address] [facility] [id number] [address] [place] [phone] Apr, Attention deficit hyperactiv ity disorder (ADHD), predominantly inattentive type F90.0 and Non-seasonal allergic rhinitis due to other allergic trigger J30.89 [place] [address] [facility] [id number] [address] [place] [phone] Apr, Bipolar 1 disorder, depresse d, moderate F31.32 ; Panic disorder with agoraphobia F40.01 and Chronic post-traumatic stress disorder (PTSD) F43.12 [place] [address] [id number] [address] [place] [id number] 06 Apr, 2016 Dental examination Z01.20 [place] [address] [facility] [id number] [address] [place] [phone] Mar, [place] [address] [facility] [id number] [address] [place] [phone] Mar, [place] [address] [facility] [id number] [address] [place] [phone] Mar, Bipolar I disorder with depr ession F31.9 and Anxiety disorder, unspecified F41.9 [place] [address] [facility] [id number] [address] [place] [id number] Mar, Panic disorder with agorapho syd F40.01 ; Bipolar 1 disorder, depressed, moderate F31.32 and Chronic post-traumatic stress disorder (PTSD) F43.12 [place] [address] [place] [id number] [address] [place] [phone] Mar, [place] [address] [place] [id number] [address] [place] [phone] Mar, Dental caries K02.9 [place] [address] [facility] [id number] [address] [place] [id number] 24 Feb, 2016 Lumbago with sciatica, left side M54.42 ; Lumbago with sciatica, right side M54.41 and Other chronic pain G89.29 [place] [address] [facility] [id number] [address] [place] [phone] Feb, [place] [address] [facility] [id number] [address] [place] [phone] 14 Feb, 2016 [place] [address] [facility] [id number] [address] [place] [phone] 13 Feb, 2016 Bipolar I disorder with depr ession F31.9 ; PTSD (post-traumatic stress disorder) F43.10 and Mood disorder F39 [place] [address] [id number] 13 Feb, 2016 [facility] [address] [id number] 11 Feb, [address] [facility] [address] [place] [id number] [place] [phone] 07 Feb, 2016 [facility] [address] [id number] Feb, Acute bronchitis, unspecifie d organism J20.9 [facility] [address] [id number] 26 Jan, 2016 Mood disorder F39 ; Migraine without aura and without status migrainosus, not intractable G43.009 ; Irritable bowel syndrome, unspecified type K58.9 ; Diabetes E11.9 and Encounter for immunization Z23 [place] [address] [id number] 15 Jan, 2016 [facility] [address] [id number] Jan, [place] [address] [id number] Jan, [facility] [address] [address] Jan, [place] [address] [address] Jan, [facility] [address] [id number] Dec, Bipolar I disorder with depr ession F31.9 ; PTSD (post-traumatic stress disorder) F43.10 and Panic disorder with agoraphobia F40.01 [facility] [address] [place] [id number] [address] [place] [phone] Dec, Chronic obstructive pulmonar y disease, unspecified COPD type J44.9 ; Tremor R25.[address] [facility] [address] [id number] [address] [place] [id number] Dec, [facility] [address] [id number] [address] [place] [phone] Nov, Tremors of nervous system R2 5.1 and Cramping of feet R25.2 [facility] [address] [id number] [address] [place] [phone] Nov, [facility] [address] [id number] [address] [place] [id number] Nov, [facility] [address] [id number] [address] [place] [phone] Oct, Chronic obstructive pulmonar y disease, unspecified J44.9 [facility] [address] [id number] [address] [place] [id number] Oct, [facility] [address] [id number] [address] [place] [id number] Oct, Tremor R25.1 [facility] [address] [id number] [address] [place] [id number] Oct, Bipolar I disorder with depr ession F31.9 ; Diabetes E11.9 ; PTSD (post-traumatic stress disorder) F43.10 and Panic disorder with agoraphobia F40.01 [facility] [address] [id number] [address] [place] [id number] Oct, Mood disorder F39 [facility] [address] [id number] [address] [place] [id number] September, [facility] [address] [id number] [address] [place] [id number] September, Diabetes E11.9 ; Bipolar I d isorder with depression F31.9 ; PTSD (post-traumatic stress disorder) F43.10 and Panic disorder with agoraphobia F40.01 [facility] [address] [facility] [id number] [address] [place] [id number] September, Mood disorder F39 ; Schizoaf fective disorder, unspecified type F25.9 ; Arthritis M19.90 ; Tremor R25.1 ; Acute non-recurrent frontal sinusitis J01.10 and Blood in stool K92.1 [facility] [address] [id number] [address] [place] [id number] September, [facility] [address] [facility] [id number] [address] [place] [phone] September, Chronic obstructive pulmonar y disease, unspecified J44.9 [facility] [address] [facility] [id number] [address] [place] [phone] September, Diabetes E11.9 [facility] [address] [facility] [id number] [address] [place] [phone] Aug, Other bipolar disorder F31.8 9 and Anxiety disorder, unspecified F41.9 [facility] [address] [facility] [id number] [address] [place] [address] Aug, [facility] [address] [facility] [id number] [address] [place] [phone] Aug, Diabetes E11.9 [facility] [address] [facility] [id number] [address] [place] [phone] Aug, [facility] [address] [facility] [id number] [address] [place] [id number] 14 Aug, 2015 Diabetes E11.9 ; Fatigue R53 .[address] [facility] [address] [id number] [address] [place] [id number] 13 Aug, 2015 Other bipolar disorder F31.[address] [facility] [address] [facility] [id number] [address] [place] [phone] 07 Aug, 2015 Generalized anxiety disorder F41.1 [facility] [address] [facility] [id number] [address] [place] [phone] 07 Aug, 2015 Other bipolar disorder F31.8 9 and Anxiety disorder, unspecified F41.9 [place] [id number] [id number] [address] [place] [id number] Aug, [facility] [address] [id number] [address] [place] [id number] Jul, [facility] [address] [facility] [id number] [address] [place] [id number] Jul, [facility] [address] [facility] [id number] [address] [place] [id number] Jul, Bronchitis J40 [facility] [address] [facility] [id number] [address] [place] [id number] Jul, Anxiety disorder F41.9 [facility] [address] [facility] [id number] [address] [place] [id number] Jul, Other bipolar disorder F31.8 9 and Anxiety disorder, unspecified F41.9 [facility] [address] [facility] [id number] [address] [place] [phone] Jul, Other bipolar disorder F31.8 [address] [facility] [address] [facility] [id number] [address] [place] [phone] Jul, [facility] [address] [facility] [id number] [address] [place] [id number] Jul, [facility] [address] [facility] [id number] [address] [place] [id number] Jul, [facility] [address] [facility] [id number] [address] [place] [id number] Jul, Other bipolar disorder F31.8 9 and Anxiety disorder, unspecified F41.9 [facility] [address] [facility] [id number] [address] [place] [id number] Jun, GERD (gastroesophageal reflu x disease) K21.9 [facility] [address] [facility] [id number] [address] [place] [id number] Jun, [facility] [address] [id number] 14 May, 2015 [facility] [address] [id number] 14 May, 2015 Diabetes E11.9 ; Back pain M 54.9 ; GERD (gastroesophageal reflux disease) K21.9 ; Hypertension I10 and Peripheral neuropathy G62.9 [facility] [address] [address] Mar, [facility] [address] [id number] Mar, [facility] [address] [address] Mar, Acute sinusitis J01.90 and O titis media, left H66.92 [facility] [address] [id number] Feb, [facility] [address] [address] Feb, [facility] [address] [address] Feb, [facility] [address] [address] Feb, [facility] [address] [address] Jan, [facility] [address] [address] Jan, Diabetes 250.00 and Back higinio n 724.5 [facility] [address] [address] Jan, [facility] [address] [address] Dec, Diabetes 250.00 ; Benign ess ential hypertension 401.1 and Allergic rhinitis 477.9 [facility] [address] [place] [id number] [place] [address], [place] [address] Dec, [facility] [address] [facility] [id number] [address] [place] [phone] Dec, [facility] [address] [facility] [id number] [address] [place] [id number] Dec, Psychosis 298.9 [facility] [address] [facility] [id number] [address] [place] [id number] Dec, Medication side effect 995.2 0 and Generalized anxiety disorder 300.02 [facility] [address] [facility] [id number] [address] [place] [id number] Dec, Acquired cognitive dysfuncti on 294.9 [facility] [address] [place] [id number] [address] [place] [id number] Dec, [facility] [address] [place] [id number] [address] [place] [id number] Dec, Unspecified myalgia and myos itis 729.1 and Generalized anxiety disorder 300.02 [facility] [address] [facility] [id number] [address] [place] [id number] Nov, [facility] [address] [facility] [id number] [address] [place] [phone] Nov, [facility] [address] [place] [id number] [address] [place] [phone] Nov, [facility] [address] [facility] [id number] [address] [place] [id number] Nov, Upper respiratory infection 465.9 and Chronic airway obstruction, not elsewhere classified [address] [facility] [address] [facility] [id number] [address] [place] [phone] Nov, Hyponatremia 276.1 [facility] [address] [facility] [id number] [address] [place] [phone] Oct, [facility] [address] [place] [id number] [address] [place] [phone] Oct, [facility] [address] [facility] [id number] [address] [place] [id number] Oct, [facility] [address] [id number] [address] [place] [phone] Oct, [facility] [address] [facility] [id number] [address] [place] [id number] 04 Oct, [address] [facility] [address] [id number] [address] [place] [id number] 03 Oct, 2014 [facility] [address] [facility] [id number] [address] [place] [id number] Oct, [facility] [address] [facility] [id number] [address] [place] [id number] Oct, Generalized anxiety disorder 300.02 [facility] [address] [facility] [id number] [address] [place] [id number] Oct, Generalized anxiety disorder 300.[address] [facility] [address] [id number] [address] [place] [phone] Aug, [facility] [address] [facility] [id number] [address] [place] [id number] Aug, [facility] [address] [facility] [id number] [address] [place] [address] Jul, [facility] [address] [facility] [id number] [address] [place] [id number] Jul, [facility] [address] [id number] [address] [place] [phone] Jun, [facility] [address] [id number] [address] [place] [phone] Jun, [facility] [address] [facility] [id number] [address] [place] [phone] Jun, [facility] [address] [facility] [id number] [address] [place] [id number] 06 Jun, 2013 [facility] [address] [id number] [address] [place] [address], [place] [address] Jun, [facility] [address] [id number] [address] [place] [address], [place] [address] May, [facility] [address] [id number] [address] [place] [address], [place] [address] May, [facility] [address] [id number] [address] [place] [address], [place] [address] Apr, [facility] [address] [id number] [address] [place] [address], [place] [address] Apr, [facility] [address] [id number] [address] [place] [address], [place] [address] Apr, [facility] [address] [id number] [address] [place] [address], [place] [address] Apr, [facility] [address] [id number] [address] [place] [address], [place] [address] Apr, [facility] [address] [id number] [address] [place] [address], [place] [address] Apr, [facility] [address] [id number] [address] [place] [address], [place] [address] Apr, [facility] [address] [id number] [address] [place] [address], [place] [address] Apr, [facility] [address] [id number] [address] [place] [address], [place] [address] Feb, [facility] [address] [id number] [address] [place] [address], [place] [address] Feb, [facility] [address] [id number] [address] [place] [address], [place] [address] 19 Jan, 2013 [facility] [address] [id number] [address] [place] [address], [place] [address] 06 Jan, 2013 [facility] [address] [id number] [address] [place] [address], [place] [address] Dec, [facility] [address] [id number] [address] [place] [address], [place] [address] Dec, [facility] [address] [id number] [address] [place] [address], [place] [address] Dec, [facility] [address] [id number] [address] [place] [address], [place] [address] Nov, [facility] [address] [id number] [address] [place] [address], [place] [address] Nov, [facility] [address] [id number] [address] [place] [address], [place] [address] Nov, [facility] [address] [id number] [address] [place] [address], [place] [address] Oct, [facility] [address] [id number] [address] [place] [address], [place] [address] Oct, [facility] [address] [id number] [address] [place] [address], [place] [address] Oct, [facility] [address] [id number] [address] [place] [address], [place] [address] September, [facility] [address] [id number] [address] [place] [address], [place] [address] September, [facility] [address] [id number] [address] [place] [address], [place] [address] September, [facility] [address] [id number] [address] [place] [address], [place] [address] Aug, [facility] [address] [id number] [address] [place] [address], [place] [address] Aug, [facility] [address] [id number] [address] [place] [address], [place] [address] Aug, [facility] [address] [id number] [address] [place] [address], [place] [address] 16 Aug, 2011 [facility] [address] [id number] [address] [place] [address], [place] [address] Jul, [facility] [address] [id number] [address] [place] [address], [place] [address] 21 Jun, 2011 [facility] [address] [id number] [address] [place] [address], [place] [address] 14 Jun, 2011 [facility] [address] [id number] [address] [place] [address], [place] [address] 13 Jun, 2011 [facility] [address] [id number] [address] [place] [address], [place] [address] 07 Jun, 2011 [facility] [address] [id number] [address] [place] [address], [place] [address] 03 Jun, 2011 [facility] [address] [id number] [address] [place] [address], [place] [address] May, [facility] [address] [id number] [address] [place] [address], [place] [address] May, [facility] [address] [id number] [address] [place] [address], [place] [address] May, [facility] [address] [id number] [address] [place] [address], [place] [address] 04 May, 2011 [facility] [address] [id number] [address] [place] [address], [place] [address] Apr, [facility] [address] [id number] [address] [place] [address], [place] [address] Apr, [facility] [address] [address] [id number] [address] [place] [address], [place] [phone] 05 Apr, 2011 [facility] [address] [id number] [address] [place] [address], [place] [phone] 22 Mar, 2011 [facility] [address] [id number] [address] [place] [address], [place] [phone] Mar, [facility] [address] [id number] [address] [place] [phone] Mar, [facility] [address] [id number] [address] [place] [phone] Feb, [facility] [address] [id number] [address] [place] [phone] Feb, [facility] [address] [id number] [address] [place] [id number] Feb, [facility] [address] [id number] [address] [place] [phone] Nov, [facility] [address] [id number] [address] [place] [id number] September, [facility] [address] [id number] [address] [place] [phone] Aug, [facility] [address] [id number] [address] [place] [phone] Jul, [facility] [address] [id number] [address] [place] [phone] May, [facility] [address] [id number] [address] [place] [id number] Apr, [facility] [address] [id number] [address] [place] [phone] Apr, [facility] [address] [id number] [address] [place] [phone] Apr, [facility] [address] [id number] [address] [place] [phone] Apr, [facility] [address] [id number] [address] [place] [phone] Apr, IMMUNIZATIONS No Known Immunizations SOCIAL HISTORY Never Assessed [facility] PLAN OF CARE VITAL SIGNS MEDICATIONS Medication [...]
--- OUTSIDE RECORDS SUMMARY | 2019-07-17 11:29 | XMS REPORT ---
Author Author Sujey GANDHI Organization [facility] Address [address] [place] [address] Care Team Providers Care Coordinator Integrated Marketing Name Role Phone WHIT GANDHI Unavailable PROBLEMS Type Condition ICD9-CM Code [id number] Code Onset Dates Condition S tatus SNOMED Code Problem Diabetes E11.9 Active 98614143 Problem GERD (gastroesophageal reflux disease) K21.9 Active 699592940 Problem Anxiety disorder, unspecified F41.9 Active 112799774 Problem Hypertension I10 Active 6832157 3 Problem Other bipolar disorder F31.89 Active 36682814 Problem Fibromyalgia M79.7 Active 6622763 7 Problem Panic disorder with agoraphobia F40.01 Active 84314925 Problem Chronic obstructive pulmonary disease, unspecified J44.9 Active 91312089 Problem Lumbago with sciatica, left side M54.42 Active 343140103 Problem Migraine without aura and without status migrain osus, not intractable G43.009 Active 529018107 Problem Lumbago with sciatica, right side M54.41 Active 612281345 Problem Fibrocystic disease of right breast N60.11 Active 57986669 Problem Other chronic pain G89.29 Active 8 7221800 Problem Fibrocystic disease of left breast N60.12 Active 40291775 Problem Irritable bowel syndrome with constipation K58.1 Active 090484613 Problem Arthritis M19.90 Active 8317657 Problem Abnormal mammogram of right breast R92.8 Active 952997347 Problem Daytime somnolence R40.0 Active 1 55604552727 Problem Bipolar affective disorder, remission status unspecified F31.9 Active 40770249 Problem Chronic post-traumatic stress disorder (PTSD) F43. 12 Active 313525574 Problem Bipolar 1 disorder, depressed, moderate F31.32 Active 40914428 Problem Schizoaffective disorder, bipolar type F25.0 Active 95615055 Problem Irritable bowel syndrome with both constipation and diarrh ea K58.2 Active 37299690 Problem Slow transit constipation K59.01 Acti ve 80384798 Problem Essential tremor G25.0 Active 609 383228 Problem Acute non-recurrent maxillary sinusitis J01.00 Active 21977274 Problem Back pain M54.9 Active 055124475 Problem Bipolar 1 disorder, depressed, partial remission F 31.75 Active 89898941 Problem Attention deficit hyperactiv ity disorder (ADHD), predominantly inattentive type F90.0 Active 23015488 Problem Bipolar I disorder with depression F31.9 Active 26195406 Problem Panlobular emphysema J43.1 Active 0751687 Problem Akathisia G25.71 Active 475084655 Problem Mild persistent asthma without complication J45.30 Active 538053760 Problem Moderate persistent asthma without complication J4 5.40 Active 768955493 ALLERGIES No Information ENCOUNTERS Encounter Location Date Diagnosis [place] [address] [address] [facility] [place] [id number] [address] [place] [phone] Mar, [place] [address] [address] [place] [id number] [address] [place] [phone] Jan, [place] [address] [address] [place] [id number] [address] [place] [phone] Jan, [place] [address] [address] [place] [id number] [address] [place] [phone] Jan, Abnormal mammogram of right breast R92.8 [place] [address] [address] [place] [id number] [address] [place] [address] Dec, Daytime somnolence R40.0 and Right otitis media with effusion H65.91 [place] [facility] [place] [facility] [id number] [address] [place] [phone] Dec, [place] [address] [address] [facility] [place] [facility] [id number] [address] [place] [phone] Dec, Cerebrovascular accident (CV A) due to occlusion of right cerebellar artery I63.541 [place] [address] [address] [facility] [place] [id number] [address] [place] [phone] Dec, [place] [place] [id number] [address] [place] [phone] Dec, [facility] [address] [facility] [place] [facility] [id number] [address] [place] [phone] Nov, Bipolar 1 disorder, depresse d, partial remission F31.75 and Panic disorder with agoraphobia F40.01 [facility] [address] [id number] [address] [place] [phone] Nov, Panlobular emphysema J43.1 [facility] [address] [id number] [address] [place] [phone] Nov, Cerebrovascular accident (CV A) due to occlusion of right cerebellar artery I63.541 and Acute non-recurrent maxillary sinusitis J01.00 [facility] [address] [id number] [address] [place] [phone] Nov, Panlobular emphysema J43.1 [facility] [address] [id number] [address] [place] [phone] Nov, [facility] [address] [id number] [address] [place] [phone] Nov, [facility] [address] [facility] [place] [facility] [id number] [address] [place] [phone] Nov, [facility] [address] [id number] [address] [place] [phone] Nov, [facility] [address] [facility] [place] [id number] [address] [place] [phone] Nov, [facility] [address] [id number] [address] [place] [phone] Nov, [facility] [address] [facility] [place] [facility] [id number] [address] [place] [phone] Nov, [facility] [address] [facility] [place] [id number] [address] [place] [phone] Nov, Mild persistent asthma witho ut complication J45.30 and Irritable bowel syndrome with both constipation and diarrhea K58.2 [facility] [address] [id number] [address] [place] [phone] Nov, [facility] [address] [id number] [address] [place] [phone] Oct, [facility] [address] [id number] [address] [place] [phone] Oct, 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 [address] [id number] [address] [place] [phone] Oct, Frequent headaches R51 [facility] [address] [id number] [address] [place] [phone] Oct, [facility] [address] [id number] [address] [place] [phone] Oct, [facility] [address] [facility] [place] [facility] [id number] [address] [place] [phone] Oct, [facility] [address] [facility] [place] [facility] [id number] [address] [place] [phone] Oct, [facility] [address] [id number] [address] [place] [phone] Oct, [facility] [address] [id number] [address] [place] [phone] Oct, [facility] [address] [facility] [place] [facility] [id number] [address] [place] [phone] Oct, [facility] [address] [facility] [place] [facility] [id number] [address] [place] [phone] Oct, [facility] [address] [facility] [place] [facility] [id number] [address] [place] [phone] September, Frequent headaches R51 [facility] [address] [facility] [place] [facility] [id number] [address] [place] [phone] September, Bilateral otitis media with effusion H65.93 ; Dizziness R42 and Essential tremor G25.0 [facility] [address] [facility] [place] [facility] [id number] [address] [place] [phone] September, Chronic obstructive pulmonar y disease, unspecified COPD type J44.9 [facility] [address] [id number] [address] [place] [phone] September, Chronic obstructive pulmonar y disease, unspecified COPD type J44.9 [facility] [address] [place] [id number] [address] [place] [phone] September, Migraine without aura and wi thout status migrainosus, not intractable G43.009 [facility] [address] [place] [id number] [address] [place] [phone] September, [facility] [address] [place] [id number] [address] [place] [phone] September, [facility] [address] [place] [id number] [address] [place] [phone] September, [facility] [address] [facility] [place] [facility] [id number] [address] [place] [phone] September, Frequent headaches R51 [facility] [address] [place] [id number] [address] [place] [id number] Aug, [facility] [address] [facility] [place] [facility] [id number] [address] [place] [phone] Aug, Breast mass, right N63.10 [facility] [address] [place] [id number] [address] [place] [phone] Aug, Breast lump N63.0 [facility] [address] [place] [id number] [address] [place] [phone] Aug, [facility] [address] [place] [id number] [address] [place] [phone] Aug, Bipolar affective disorder, remission status unspecified F31.9 and Diabetes E11.9 [place] [address] [id number] [address] [place] [address] Aug, Diabetes E11.9 ; Schizoaffec tive disorder, bipolar type F25.0 ; Pharyngitis due to other organism J02.8 ; Panlobular emphysema J43.1 and Irritable bowel syndrome with both constipation and diarrhea K58.2 [place] [address] [id number] [address] [place] [phone] Aug, Abnormal mammogram R92.8 [place] [address] [id number] [address] [place] [phone] Aug, [place] [address] [address] [facility] [place] [facility] [id number] [address] [place] [phone] Aug, Bipolar 1 disorder, depresse d, moderate F31.32 ; Panic disorder with agoraphobia F40.01 and Chronic post-traumatic stress disorder (PTSD) F43.12 [place] [address] [id number] [address] [place] [phone] Aug, [place] [address] [id number] [address] [place] [phone] Aug, [place] [address] [id number] [address] [place] [phone] Aug, [place] [address] [id number] [address] [place] [phone] Jul, [place] [address] [id number] [address] [place] [phone] Jul, Mild persistent asthma witho ut complication J45.30 [place] [address] [id number] [address] [place] [phone] 19 Jul, 2017 Mild persistent asthma witho ut complication J45.30 [place] [address] [id number] [address] [place] [phone] Jul, Bipolar affective disorder, remission status unspecified F31.9 ; Diabetes E11.9 and Irritable bowel syndrome with constipation K58.1 [facility] [address] [id number] [address] [place] [phone] 13 Jul, 2017 [facility] [address] [id number] [address] [place] [phone] Jul, [facility] [address] [id number] [address] [place] [phone] Jul, Frequent headaches R51 [facility] [address] [facility] [place] [id number] [address] [place] [phone] Jul, [facility] [address] [facility] [place] [facility] [id number] [address] [place] [phone] Jul, [facility] [address] [facility] [place] [facility] [id number] [address] [place] [phone] Jul, [facility] [address] [facility] [place] [id number] [address] [place] [phone] Jul, Frequent headaches R51 ; Fib rocystic disease of left breast N60.12 ; Fibrocystic disease of right breast N60.[address] [facility] [address] [facility] [place] [id number] [address] [place] [phone] Jul, [facility] [address] [facility] [place] [facility] [id number] [address] [place] [phone] Jul, [facility] [address] [facility] [place] [id number] [address] [place] [phone] Jun, Exudative tonsillitis J03.90 [facility] [address] [facility] [place] [facility] [id number] [address] [place] [phone] Jun, [facility] [address] [facility] [place] [id number] [address] [place] [phone] Jun, [facility] [address] [facility] [place] [id number] [address] [place] [address] Jun, Mild persistent asthma witho ut complication J45.30 ; Chronic obstructive pulmonary disease, unspecified COPD type J44.9 and Exudative tonsillitis J03.90 [facility] [address] [address] 13 Jun, 2017 Encounter for immunization Z 23 [facility] [address] [address] 12 Jun, 2017 [facility] [address] [address] Jun, [facility] [address] [address] Jun, [facility] [address] [phone] 06 Jun, [address] [facility] [address] [address] 05 Jun, 2017 [facility] [address] [address] 03 Jun, 2017 Acute non-recurrent maxillar y sinusitis J01.00 [place] [address] [address] 02 Jun, 2017 [facility] [address] [address] May, [facility] [address] [address] May, [facility] [address] [address] May, GERD (gastroesophageal reflu x disease) K21.9 [facility] [address] [address] May, Migraine without aura and wi thout status migrainosus, not intractable G43.009 [facility] [address] [address] May, [facility] [address] [facility] [place] [id number] [address] [place] [address] May, [facility] [address] [facility] [place] [id number] [address] [place] [address] May, Panlobular emphysema J43.1 a nd Acute non-recurrent maxillary sinusitis J01.00 [facility] [address] [facility] [place] [id number] [address] [place] [address] May, Bipolar 1 disorder, depresse d, moderate F31.32 ; Panic disorder with agoraphobia F40.01 and Akathisia G25.71 [place] [address] [address] [facility] [place]] [id number] [address] [place] [address] Apr, [facility] [address] [facility] [place] [id number] [address] [place] [phone] Apr, [facility] [address] [facility] [place] [id number] [address] [place] [address] Apr, Acute non-recurrent maxillar y sinusitis J01.00 [facility] [address] [facility] [place] [id number] [address] [place] [phone] 07 Apr, [address] [facility] [address] [facility] [place] [id number] [address] [place] [phone] Apr, [facility] [address] [facility] [place] [id number] [address] [place] [phone] 04 Apr, 2017 Exudative tonsillitis J03.90 [address] Sore throat [address].9 [facility] [address] [facility] [place] [id number] [address] [place] [address] Mar, [facility] [address] [facility] [place] [id number] [address] [place] [address] 15 Mar, 2017 Acute non-recurrent maxillar y sinusitis J01.00 [facility] [address] [facility] [place]] [id number] [address] [place] [phone] Mar, [facility] [address] [facility] [place] [id number] [address] [place] [address] 09 Mar, 2017 Panlobular emphysema J43.1 a nd Diabetes E11.9 [facility] [address] [facility] [place] [id number] [address] [place] [address] 06 Mar, 2017 [facility] [address] [facility] [place] [id number] [address] [place] [address] Feb, Wheezing R06.2 and Acute rec urrent pansinusitis J01.41 [facility] [address] [facility] [place] [id number] [address] [place] [address] Feb, [facility] [address] [facility] [place] [id number] [address] [place] [address] Feb, Acute non-recurrent maxillar y sinusitis J01.00 [facility] [address] [facility] [place] [id number] [address] [place] [phone] Feb, Chronic obstructive pulmonar y disease, unspecified J44.9 [facility] [address] [facility] [place] [id number] [address] [place] [address] Feb, Hypoxemia R09.02 and Chronic obstructive pulmonary disease, unspecified J44.9 [facility] [address] [place] [id number] [address] [place] [phone] 28 Jan, 2017 Bipolar 1 disorder, depresse d, moderate F31.32 ; Panic disorder with agoraphobia F40.01 ; Chronic post-traumatic stress disorder (PTSD) F43.12 ; Diabetes E11.9 and Moderate persistent asthma without complication J45.40 [facility] [address] [facility] [place]] [id number] [address] [place] [phone] Jan, [facility] [address] [place] [id number] [address] [place] [id number] 19 Jan, 2017 Acute non-recurrent maxillar y sinusitis J01.00 [facility] [address] [place] [id number] [address] [place] [address] Jan, [facility] [address] [id number] [address] [place] [address] Jan, [facility] [address] [id number] [address] [place] [address] Jan, Moderate persistent asthma w ithout complication J45.[address] [facility] [address] [id number] [address] [place] [id number] Jan, Moderate persistent asthma w ithout complication J45.[address] [facility] [address] [id number] [address] [place] [id number] Jan, [facility] [address] [id number] [address] [place] [id number] Dec, Acute non-recurrent maxillar y sinusitis J01.00 [facility] [address] [id number] [address] [place] [phone] Dec, Chronic obstructive pulmonar y disease, unspecified J44.9 [facility] [address] [id number] [address] [place] [phone] Dec, [facility] [address] [id number] [address] [place] [phone] Dec, Mild persistent asthma witho ut complication J45.30 and Other chronic pain G89.29 [facility] [address] [id number] [address] [place] [id number] Nov, [facility] [address] [id number] [address] [place] [phone] Nov, Acute non-recurrent maxillar y sinusitis J01.00 [facility] [address] [id number] [address] [place] [phone] Nov, [facility] [address] [id number] [address] [place] [phone] Nov, [facility] [address] [id number] [address] [place] [phone] Oct, [facility] [address] [facility] [place] [facility] [id number] [address] [place] [id number] Oct, Bipolar 1 disorder, depresse d, partial remission F31.75 ; Panic disorder with agoraphobia F40.01 and Chronic post-traumatic stress disorder (PTSD) F43.12 [place] [address] [address] [place] [id number] [address] [place] [id number] Oct, Acute non-recurrent maxillar y sinusitis J01.00 [place] [address] [address] [place] [id number] [address] [place] [phone] Oct, [place] [address] [address] [place] [id number] [address] [place] [phone] Oct, Diabetes E11.9 [place] [address] [address] [place] [id number] [address] [place] [phone] September, Diabetes E11.9 [place] [address] [address] [place] [place] [id number] [address] [place] [phone] September, Diabetes E11.9 and Sinus tac hycardia R00.0 [place] [address] [place] [id number] [address] [place] [phone] September, [place] [address] [place] [id number] [address] [place] [phone] September, [place] [address] [place] [id number] [address] [place] [phone] Aug, Diabetes E11.9 and Lumbago w ith sciatica, right side M54.41 [place] [address] [place] [id number] [address] [place] [phone] Aug, [place] [address] [place] [id number] [address] [place] [phone] Jul, Bipolar 1 disorder, depresse d, moderate F31.32 ; Panic disorder with agoraphobia F40.01 and Chronic post-traumatic stress disorder (PTSD) F43.12 [facility] [address] [facility] [place] [id number] [address] [place] [phone] Jul, Sore throat J02.9 [facility] [address] [facility] [place] [id number] [address] [place] [phone] [address], [address] [facility] [address] [facility] [place] [id number] [address] [place] [phone] Jul, [facility] [address] [facility] [place] [id number] [address] [place] [phone] Jul, [facility] [address] [facility] [place] [id number] [address] [place] [phone] Jul, [facility] [address] [facility] [place] [id number] [address] [place] [phone] Jul, Sore throat J02.9 and Pharyn gitis, unspecified etiology J02.9 [facility] [address] [facility] [place] [id number] [address] [place] [id number] [address], [address] [facility] [address] [facility] [place] [id number] [address] [place] [phone] 23 Jun, [address] [facility] [address] [facility] [place] [id number] [address] [place] [phone] [address], [address] [facility] [address] [facility] [place] [id number] [address] [place] [phone] [address], [address] [facility] [address] [facility] [place] [id number] [address] [place] [phone] Jun, [facility] [address] [facility] [place] [id number] [address] [place] [phone] Jun, [facility] [address] [facility] [place] [id number] [address] [place] [phone] [address], [address] [facility] [address] [facility] [place] [id number] [address] [place] [phone] [address], [address] [facility] [address] [place] [id number] [place] [phone] 10 Jun, 2016 [place] [address] [facility] [place] [id number] [address] [place] [phone] Jun, [place] [address] [place] [id number] [place] [phone] May, Diabetes E11.9 ; Other chron ic pain G89.29 ; Acute recurrent maxillary sinusitis J01.01 ; Bipolar I disorder with depression F31.9 and Anxiety disorder, unspecified F41.9 [place] [address] [place] [id number] [place] [phone] May, [place] [address] [place] [id number] [place] [phone] May, Diabetes E11.9 ; Bipolar I d isorder with depression F31.9 ; Anxiety disorder, unspecified F41.9 ; Other chronic pain G89.29 and Acute recurrent maxillary sinusitis J01.01 [place] [id number] [place] [address] May, [place] [address] [place] [id number] [address] [place] [phone] May, Attention deficit hyperactiv ity disorder (ADHD), predominantly inattentive type F90.0 [place] [address] [phone] May, [place] [address] [place] [id number] [place] [phone] Apr, Attention deficit hyperactiv ity disorder (ADHD), predominantly inattentive type F90.0 and Non-seasonal allergic rhinitis due to other allergic trigger J30.89 [place] [address] [place] [id number] [place] [phone] 15 Apr, 2016 Bipolar 1 disorder, depresse d, moderate F31.32 ; Panic disorder with agoraphobia F40.01 and Chronic post-traumatic stress disorder (PTSD) F43.12 [place] [address] [facility] [place] [id number] [address] [place] [phone] Apr, Dental examination Z01.20 [place] [address] [id number] [address] [place] [phone] Mar, [place] [address] [facility] [place] [id number] [address] [place] [phone] Mar, [place] [address] [facility] [place] [id number] [address] [place] [phone] Mar, Bipolar I disorder with depr ession F31.9 and Anxiety disorder, unspecified F41.9 [place] [address] [facility] [place] [id number] [address] [place] [phone] Mar, Panic disorder with agorapho syd F40.01 ; Bipolar 1 disorder, depressed, moderate F31.32 and Chronic post-traumatic stress disorder (PTSD) F43.12 [place] [address] [place] [id number] [place] [phone] Mar, [place] [address] [facility] [place] [id number] [address] [place] [phone] Mar, Dental caries K02.9 [place] [address] [facility] [place] [id number] [address] [place] [phone] 24 Feb, 2016 Lumbago with sciatica, left side M54.42 ; Lumbago with sciatica, right side M54.41 and Other chronic pain G89.29 [place] [address] [facility] [place] [id number] [address] [place] [phone] Feb, [place] [address] [facility] [place] [id number] [address] [place] [phone] Feb, [place] [address] [facility] [place] [id number] [address] [place] [phone] Feb, Bipolar I disorder with depr ession F31.9 ; PTSD (post-traumatic stress disorder) F43.10 and Mood disorder F39 [place] [address] [facility] [place]] [id number] [address] [place] [phone] Feb, [facility] [address] [place] [id number] [address] [place] [phone] Feb, Dental examination Z01.20 [facility] [address] [place] [phone] 07 Feb, 2016 [facility] [address] [phone] Feb, Acute bronchitis, unspecifie d organism J20.9 [facility] [address] [address] Jan, Mood disorder F39 ; Migraine without aura and without status migrainosus, not intractable G43.009 ; Irritable bowel syndrome, unspecified type K58.9 ; Diabetes E11.9 and Encounter for immunization Z23 [place] [address] [phone] 15 Jan, 2016 [place] [address] [address] Jan, [place] [address] [address] Jan, [place] [address] [address] Jan, [place] [address] [address] Jan, [facility] [address] [address] Dec, Bipolar I disorder with depr ession F31.9 ; PTSD (post-traumatic stress disorder) F43.10 and Panic disorder with agoraphobia F40.01 [place] [address] [place] [id number] [place] [phone] Dec, Chronic obstructive pulmonar y disease, unspecified COPD type J44.9 ; Tremor R25.1 and Anxiety F41.9 [place] [address] [id number] [address] [place] [phone] Dec, [facility] [address] [id number] [address] [place] [phone] Nov, Tremors of nervous system R2 5.1 and Cramping of feet R25.2 [facility] [address] [id number] [address] [place] [phone] Nov, [facility] [address] [id number] [address] [place] [phone] Nov, [facility] [address] [id number] [address] [place] [phone] Oct, Chronic obstructive pulmonar y disease, unspecified J44.9 [facility] [address] [facility] [place] [id number] [address] [place] [phone] Oct, [facility] [address] [facility] [place] [id number] [address] [place] [phone] Oct, Tremor R25.1 [facility] [address] [id number] [address] [place] [phone] Oct, Bipolar I disorder with depr ession F31.9 ; Diabetes E11.9 ; PTSD (post-traumatic stress disorder) F43.10 and Panic disorder with agoraphobia F40.01 [facility] [address] [id number] [address] [place] [phone] Oct, Mood disorder F39 [facility] [address] [id number] [address] [place] [phone] September, [facility] [address] [id number] [address] [place] [phone] September, Diabetes E11.9 ; Bipolar I d isorder with depression F31.9 ; PTSD (post-traumatic stress disorder) F43.10 and Panic disorder with agoraphobia F40.01 [facility] [address] [facility] [place] [id number] [address] [place] [phone] September, Mood disorder F39 ; Schizoaf fective disorder, unspecified type F25.9 ; Arthritis M19.90 ; Tremor R25.1 ; Acute non-recurrent frontal sinusitis J01.10 and Blood in stool K92.1 [facility] [address] [id number] [address] [place] [phone] September, [facility] [address] [facility] [place] [id number] [address] [place] [phone] September, Chronic obstructive pulmonar y disease, unspecified J44.9 [facility] [address] [facility] [place] [id number] [address] [place] [phone] September, Diabetes E11.9 [place] [id number] [facility] [place] [id number] [address] [place] [phone] Aug, Other bipolar disorder F31.8 9 and Anxiety disorder, unspecified F41.9 [facility] [address] [facility] [place] [id number] [address] [place] [phone] Aug, [facility] [address] [facility] [place] [id number] [address] [place] [phone] Aug, Diabetes E11.9 [facility] [address] [facility] [place] [id number] [address] [place] [phone] 18 Aug, 2015 [facility] [address] [facility] [place] [id number] [address] [place] [phone] 14 Aug, 2015 Diabetes E11.9 ; Fatigue R53 .[address] [facility] [address] [id number] [address] [place] [phone] 13 Aug, 2015 Other bipolar disorder F31.[address] [facility] [address] [facility] [place] [id number] [address] [place] [id number] 07 Aug, 2015 Generalized anxiety disorder F41.1 [facility] [address] [facility] [place] [id number] [address] [place] [phone] 07 Aug, 2015 Other bipolar disorder F31.8 9 and Anxiety disorder, unspecified F41.9 [facility] [address] [facility] [place] [id number] [address] [place] [phone] Aug, [facility] [address] [facility] [place] [id number] [address] [place] [phone] Jul, [facility] [address] [facility] [place] [id number] [address] [place] [phone] Jul, [facility] [address] [facility] [place] [id number] [address] [place] [phone] Jul, Bronchitis J40 [facility] [address] [facility] [place] [id number] [address] [place] [phone] Jul, Anxiety disorder F41.9 [facility] [address] [facility] [place] [id number] [address] [place] [phone] Jul, Other bipolar disorder F31.8 9 and Anxiety disorder, unspecified F41.9 [facility] [address] [facility] [place] [id number] [address] [place] [address] Jul, Other bipolar disorder F31.8 [address] [facility] [address] [facility] [place] [id number] [address] [place] [id number] Jul, [facility] [address] [facility] [place] [id number] [address] [place] [phone] Jul, [facility] [address] [facility] [place] [id number] [address] [place] [phone] Jul, [facility] [address] [facility] [place] [id number] [address] [place] [address] Jul, Other bipolar disorder F31.8 9 and Anxiety disorder, unspecified F41.9 [facility] [address] [facility] [place] [id number] [address] [place] [phone] Jun, GERD (gastroesophageal reflu x disease) K21.9 [facility] [address] [facility] [place]] [id number] [address] [place] [phone] Jun, [facility] [address] [facility] [place] [id number] [address] [place] [phone] May, [facility] [address] [facility] [place] [id number] [address] [place] [address] May, Diabetes E11.9 ; Back pain M 54.9 ; GERD (gastroesophageal reflux disease) K21.9 ; Hypertension I10 and Peripheral neuropathy G62.9 [facility] [address] [facility] [place]] [id number] [address] [place] [phone] Mar, [facility] [address] [place] [id number] [place] [phone] Mar, [facility] [address] [place] [id number] [place] [phone] Mar, Acute sinusitis J01.90 and O titis media, left H66.92 [facility] [address] [place] [id number] [address] [place] [phone] Feb, [facility] [address] [place] [id number] [address] [place] [phone] Feb, [facility] [address] [place] [id number] [address] [place] [phone] Feb, [facility] [address] [place] [id number] [place] [phone] Feb, [facility] [address] [place] [id number] [address] [place] [phone] Jan, [facility] [address] [place] [id number] [address] [place] [phone] Jan, Diabetes 250.00 and Back higinio n 724.5 [facility] [address] [facility] [place] [id number] [address] [place] [phone] Jan, [facility] [address] [place] [id number] [place] [address] Dec, Diabetes 250.00 ; Benign ess ential hypertension 401.1 and Allergic rhinitis 477.9 [facility] [address] [place] [id number] [address] [place] [id number] Dec, [facility] [address] [id number] [address] [place] [phone] Dec, [facility] [address] [facility] [place] [id number] [address] [place] [phone] Dec, Psychosis 298.9 [facility] [address] [facility] [place] [id number] [address] [place] [phone] Dec, Medication side effect 995.2 0 and Generalized anxiety disorder 300.02 [facility] [address] [id number] [address] [place] [phone] Dec, Acquired cognitive dysfuncti on 294.9 [facility] [address] [facility] [place] [id number] [address] [place] [phone] Dec, [facility] [address] [facility] [place] [id number] [address] [place] [phone] Dec, Unspecified myalgia and myos itis 729.1 and Generalized anxiety disorder 300.02 [facility] [address] [facility] [place] [id number] [address] [place] [phone] Nov, [facility] [address] [facility] [place] [id number] [address] [place] [phone] Nov, [facility] [address] [facility] [place] [id number] [address] [place] [phone] Nov, [facility] [address] [facility] [place] [id number] [address] [place] [phone] Nov, Upper respiratory infection 465.9 and Chronic airway obstruction, not elsewhere classified [address] [facility] [address] [id number] [address] [place] [id number] Nov, Hyponatremia 276.1 [facility] [address] [facility] [place] [id number] [address] [place] [phone] Oct, [facility] [address] [facility] [place] [id number] [address] [place] [phone] Oct, [facility] [address] [id number] [address] [place] [phone] Oct, [facility] [address] [facility] [place] [id number] [address] [place] [phone] Oct, [facility] [address] [facility] [place] [id number] [address] [place] [phone] 04 Oct, [address] [facility] [address] [facility] [place]] [id number] [address] [place] [phone] Oct, [facility] [address] [facility] [place]] [id number] [address] [place] [phone] Oct, [facility] [address] [facility] [place] [id number] [address] [place] [phone] Oct, Generalized anxiety disorder 300.02 [facility] [address] [facility] [place] [id number] [address] [place] [phone] Oct, Generalized anxiety disorder 300.[address] [facility] [address] [id number] [address] [place] [phone] Aug, [facility] [address] [facility] [place]] [id number] [address] [place] [phone] Aug, [facility] [address] [facility] [place]] [id number] [address] [place] [phone] Jul, [facility] [address] [facility] [place]] [id number] [address] [place] [phone] Jul, [facility] [address] [facility] [place]] [id number] [address] [place] [phone] Jun, [facility] [address] [facility] [place]] [id number] [address] [place] [phone] Jun, [facility] [address] [facility] [place]] [id number] [address] [place] [phone] Jun, [facility] [address] [facility] [place]] [id number] [address] [place] [phone] Jun, [facility] [address] [id number] [address] [place] [address], [place] [phone] Jun, [facility] [address] [id number] [address] [place] [address], [place] [id number] May, [facility] [address] [id number] [address] [place] [address], [place] [phone] May, [facility] [address] [id number] [address] [place] [address], [place] [phone] Apr, [facility] [address] [id number] [address] [place] [address], [place] [id number] Apr, [facility] [address] [id number] [address] [place] [address], [place] [id number] Apr, [facility] [address] [id number] [address] [place] [address], [place] [id number] Apr, [facility] [address] [id number] [address] [place] [address], [place] [phone] Apr, [facility] [address] [id number] [address] [place] [address], [place] [phone] Apr, [facility] [address] [id number] [address] [place] [address], [place] [id number] Apr, [facility] [address] [id number] [address] [place] [address], [place] [id number] Apr, [facility] [address] [id number] [address] [place], [place] [id number] Feb, [facility] [address] [id number] [address] [place] [address], [place] [id number] Feb, [facility] [address] [id number] [address] [place] [address], [place] [id number] Jan, [facility] [address] [id number] [address] [place] [address], [place] [id number] 06 Jan, 2013 [facility] [address] [id number] [address] [place] [address], [place] [id number] Dec, [facility] [place] [address] [id number] [address] [place] [address], [place] [id number] Dec, [facility] [address] [id number] [address] [place] [address], [place] [id number] Dec, [facility] [place] [address] [id number] [address] [place] [address], [place] [id number] Nov, [facility] [address] [id number] [address] [place] [address], [place] [id number] Nov, [facility] [address] [id number] [address] [place] [address], [place] [id number] Nov, [facility] [place] [address] [id number] [address] [place] [address], [place] [address] Oct, [facility] [place] [address] [id number] [address] [place] [address], [place] [id number] Oct, [facility] [place] [address] [id number] [address] [place] [address], [place] [id number] Oct, [facility] [address] [id number] [address] [place] [address], [place] [address] September, [facility] [address] [id number] [address] [place] [address], [place] [id number] September, [facility] [place] [address] [id number] [address] [place] [address], [place] [address] September, [facility] [address] [id number] [address] [place] [address], [place] [address] Aug, [facility] [address] [id number] [address] [place] [address], [place] [id number] Aug, [facility] [address] [id number] [address] [place] [address], [place] [address] Aug, [facility] [place] [address] [id number] [address] [place] [address], [place] [id number] 16 Aug, 2011 [facility] [place] [address] [id number] [address] [place] [address], [place] [id number] Jul, [facility] [address] [id number] [address] [place] [address], [place] [address] Jun, [facility] [address] [id number] [address] [place] [address], [place] [id number] 14 Jun, 2011 [facility] [address] [id number] [address] [place] [address], [place] [id number] 13 Jun, 2011 [facility] [address] [id number] [address] [place] [address], [place] [id number] 07 Jun, 2011 [facility] [address] [id number] [address] [place] [address], [place] [address] 03 Jun, 2011 [facility] [address] [id number] [address] [place] [address], [place] [address] May, [facility] [address] [id number] [address] [place] [address], [place] [address] May, [facility] [address] [id number] [address] [place] [address], [place] [address] May, [facility] [address] [id number] [address] [place] [address], [place] [id number] 04 May, 2011 [facility] [address] [id number] [address] [place] [address], [place] [address] Apr, [facility] [address] [id number] [address] [place] [address], [place] [id number] Apr, [facility] [address] [id number] [address] [place] [address], [place] [id number] 05 Apr, 2011 [facility] [address] [id number] [address] [place] [address], [place] [phone] Mar, [facility] [address] [id number] [address] [place] [address], [place] [address] Mar, [facility] [address] [id number] [address] [place] [phone] Mar, [facility] [address] [id number] [address] [place] [id number] Feb, [facility] [address] [id number] [address] [place] [phone] Feb, [facility] [address] [id number] [address] [place] [phone] Feb, [facility] [address] [id number] [address] [place] [phone] Nov, [facility] [address] [id number] [address] [place] [phone] September, [facility] [address] [id number] [address] [place] [phone] Aug, [facility] [address] [id number] [address] [place] [phone] Jul, [facility] [address] [id number] [address] [place] [phone] May, [facility] [address] [id number] [address] [place] [phone] Apr, [facility] [address] [id number] [address] [place] [phone] Apr, [facility] [address] [id number] [address] [place] [id number] Apr, [facility] [address] [id number] [address] [place] [phone] Apr, [facility] [address] [id number] [address] [place] [phone] Apr, IMMUNIZATIONS No Known Immunizations SOCIAL HISTORY [...]
--- OUTSIDE RECORDS SUMMARY | 2019-07-17 11:30 | XMS REPORT ---
Author Author Sujey WILLS Organization [facility] Address [address] [place] [address] Care Team Providers Care Forward Air Controller/Air Officer Name Role Phone [email or web address] Unavailable PROBLEMS Type Condition ICD9-CM Code [id number] Code Onset Dates Condition S tatus SNOMED Code Problem Diabetes E11.9 Active 65923753 Problem GERD (gastroesophageal reflux disease) K21.9 Active 515887331 Problem Anxiety disorder, unspecified F41.9 Active 035677877 Problem Hypertension I10 Active 9411955 3 Problem Other bipolar disorder F31.89 Active 53102694 Problem Fibromyalgia M79.7 Active 1971181 7 Problem Panic disorder with agoraphobia F40.01 Active 25174683 Problem Chronic obstructive pulmonary disease, unspecified J44.9 Active 14554140 Problem Lumbago with sciatica, left side M54.42 Active 704097945 Problem Migraine without aura and without status migrain osus, not intractable G43.009 Active 214073075 Problem Lumbago with sciatica, right side M54.41 Active 727274286 Problem Fibrocystic disease of right breast N60.11 Active 88153920 Problem Other chronic pain G89.29 Active 8 2801820 Problem Fibrocystic disease of left breast N60.12 Active 92599914 Problem Irritable bowel syndrome with constipation K58.1 Active 104868761 Problem Arthritis M19.90 Active 3563340 Problem Abnormal mammogram of right breast R92.8 Active 326471735 Problem Daytime somnolence R40.0 Active 1 23060495196 Problem Bipolar affective disorder, remission status unspecified F31.9 Active 19180788 Problem Chronic post-traumatic stress disorder (PTSD) F43. 12 Active 561795098 Problem Bipolar 1 disorder, depressed, moderate F31.32 Active 96367723 Problem Schizoaffective disorder, bipolar type F25.0 Active 57730495 Problem Irritable bowel syndrome with both constipation and diarrh ea K58.2 Active 71031258 Problem Slow transit constipation K59.01 Acti ve 16827481 Problem Essential tremor G25.0 Active 609 873781 Problem Acute non-recurrent maxillary sinusitis J01.00 Active 24997422 Problem Back pain M54.9 Active 674439253 Problem Bipolar 1 disorder, depressed, partial remission F 31.75 Active 82090316 Problem Attention deficit hyperactiv ity disorder (ADHD), predominantly inattentive type F90.0 Active 79954976 Problem Bipolar I disorder with depression F31.9 Active 37599180 Problem Panlobular emphysema J43.1 Active 4608084 Problem Akathisia G25.71 Active 495578946 Problem Mild persistent asthma without complication J45.30 Active 512204071 Problem Moderate persistent asthma without complication J4 5.40 Active 042639121 ALLERGIES No Information ENCOUNTERS Encounter Location Date Diagnosis [place] [address] [address] [facility] [id number] [address] [place] [phone] Mar, [place] [address] [place] [id number] [address] [place] [id number] Jan, [place] [address] [address] [facility] [id number] [address] [place] [phone] Jan, Abnormal mammogram of right breast R92.8 [place] [address] [place] [id number] [address] [place] [phone] Dec, Daytime somnolence R40.0 and Right otitis media with effusion H65.91 [place] [address] [address] [facility] [id number] [address] [place] [phone] Dec, [place] [address] [address] [facility] [id number] [address] [place] [phone] Dec, Cerebrovascular accident (CV A) due to occlusion of right cerebellar artery I63.541 [place] [address] [address] [facility] [id number] [address] [place] [phone] Dec, [place] [address] [facility] [id number] [address] [place] [id number] Dec, [place] [address] [address] [facility] [id number] [address] [place] [id number] Nov, Bipolar 1 disorder, depresse d, partial remission F31.75 and Panic disorder with agoraphobia F40.01 [facility] [address] [id number] [address] [place] [phone] Nov, Panlobular emphysema J43.1 [facility] [address] [id number] [address] [place] [id number] Nov, Cerebrovascular accident (CV A) due to occlusion of right cerebellar artery I63.541 and Acute non-recurrent maxillary sinusitis J01.00 [facility] [address] [id number] [address] [place] [phone] Nov, Panlobular emphysema J43.1 [facility] [address] [id number] [address] [place] [phone] Nov, [facility] [address] [id number] [address] [place] [place] [phone] Nov, [facility] [address] [id number] [address] [place] [place] [phone] Nov, [facility] [address] [id number] [address] [place] [place] [phone] Nov, [facility] [address] [id number] [address] [place] [phone] Nov, [facility] [address] [id number] [address] [place] [place] [phone] Nov, [facility] [address] [id number] [address] [place] [phone] Nov, [facility] [address] [facility] [id number] [address] [place] [phone] Nov, Mild persistent asthma witho ut complication J45.30 and Irritable bowel syndrome with both constipation and diarrhea K58.2 [facility] [address] [id number] [address] [place] [phone] Nov, [facility] [address] [id number] [address] [place] [phone] Oct, [facility] [address] [id number] [address] [place] [phone] Oct, [facility] [address] [id number] [address] [place] [phone] Oct, Type 2 diabetes mellitus wit h diabetic neuropathy, 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 ; Diabetes E11.9 ; Slow transit constipation K59.01 ; Edema of both legs R60.0 and Dysfunction of right eustachian tube H69.81 [facility] [address] [id number] [address] [place] [phone] Oct, Frequent headaches R51 [facility] [address] [id number] [address] [place] [phone] Oct, [facility] [address] [id number] [address] [place] [phone] Oct, [facility] [address] [id number] [address] [place] [phone] Oct, [facility] [address] [id number] [address] [place] [phone] Oct, [facility] [address] [facility] [id number] [address] [place] [phone] Oct, [facility] [address] [id number] [address] [place] [phone] Oct, [facility] [address] [id number] [address] [place] [phone] Oct, [facility] [address] [id number] [address] [place] [phone] Oct, [facility] [address] [facility] [id number] [address] [place] [phone] September, Frequent headaches R51 [facility] [address] [id number] [address] [place] [id number] September, Bilateral otitis media with effusion H65.93 ; Dizziness R42 and Essential tremor G25.0 [facility] [address] [facility] [id number] [address] [place] [phone] September, Chronic obstructive pulmonar y disease, unspecified COPD type J44.9 [facility] [address] [facility] [id number] [address] [place] [phone] September, Chronic obstructive pulmonar y disease, unspecified COPD type J44.9 [facility] [address] [id number] [address] [place] [phone] September, Migraine without aura and wi thout status migrainosus, not intractable G43.009 [facility] [address] [facility] [id number] [address] [place] [phone] September, [facility] [address] [facility] [id number] [address] [place] [phone] September, [facility] [address] [facility] [id number] [address] [place] [phone] September, [facility] [address] [facility] [id number] [address] [place] [phone] September, Frequent headaches R51 [facility] [address] [facility] [id number] [address] [place] [phone] Aug, [facility] [address] [place] [id number] [address] [place] [id number] Aug, Breast mass, right N63.10 [facility] [address] [facility] [id number] [address] [place] [phone] Aug, Breast lump N63.0 [facility] [address] [facility] [id number] [address] [place] [phone] Aug, [facility] [address] [facility] [id number] [address] [place] [phone] Aug, Bipolar affective disorder, remission status unspecified F31.9 and Diabetes E11.9 [place] [address] [facility] [id number] [address] [place] [id number] 18 Aug, 2017 Diabetes E11.9 ; Schizoaffec tive disorder, bipolar type F25.0 ; Pharyngitis due to other organism J02.8 ; Panlobular emphysema J43.1 and Irritable bowel syndrome with both constipation and diarrhea K58.2 [place] [address] [address] [facility] [id number] [address] [place] [phone] Aug, Abnormal mammogram R92.8 [place] [address] [id number] [address] [place] [id number] Aug, [place] [address] [facility] [id number] [place] [id number] Aug, Bipolar 1 disorder, depresse d, moderate F31.32 ; Panic disorder with agoraphobia F40.01 and Chronic post-traumatic stress disorder (PTSD) F43.12 [place] [address] [facility] [id number] [address] [place] [phone] Aug, [place] [address] [facility] [id number] [address] [place] [id number] Aug, [place] [address] [facility] [id number] [address] [place] [id number] Aug, [place] [address] [facility] [id number] [address] [place] [id number] Jul, [place] [address] [facility] [id number] [address] [place] [id number] Jul, Mild persistent asthma witho ut complication J45.30 [place] [address] [address] [facility] [id number] [address] [place] [id number] Jul, Mild persistent asthma witho ut complication J45.30 [place] [address] [address] [facility] [id number] [address] [place] [id number] 15 Jul, 2017 Bipolar affective disorder, remission status unspecified F31.9 ; Diabetes E11.9 and Irritable bowel syndrome with constipation K58.1 [facility] [address] [id number] [address] [place] [id number] 13 Jul, 2017 [facility] [address] [id number] [address] [place] [id number] Jul, [facility] [address] [facility] [id number] [address] [place] [id number] Jul, Frequent headaches R51 [facility] [address] [id number] [address] [place] [id number] Jul, [facility] [address] [id number] [address] [place] [phone] Jul, [facility] [address] [facility] [id number] [address] [place] [phone] Jul, [facility] [address] [id number] [address] [place] [id number] Jul, Frequent headaches R51 ; Fib rocystic disease of left breast N60.12 ; Fibrocystic disease of right breast N60.11 and Diabetes E11.9 [facility] [address] [id number] [address] [place] [id number] Jul, [facility] [address] [id number] [address] [place] [id number] Jul, [facility] [address] [facility] [id number] [address] [place] [id number] Jun, Exudative tonsillitis J03.90 [facility] [address] [id number] [address] [place] [phone] Jun, [facility] [address] [facility] [id number] [address] [place] [id number] Jun, [facility] [address] [facility] [id number] [address] [place] [id number] 15 Jun, 2017 Mild persistent asthma witho ut complication J45.30 ; Chronic obstructive pulmonary disease, unspecified COPD type J44.9 and Exudative tonsillitis J03.90 [facility] [address] [facility] [id number] [address] [place] [id number] 13 Jun, 2017 Encounter for immunization Z 23 [facility] [address] [id number] [address] [place] [phone] 12 Jun, 2017 [facility] [address] [facility] [id number] [address] [place] [phone] Jun, [facility] [address] [facility] [id number] [address] [place] [phone] Jun, [facility] [address] [facility] [id number] [address] [place] [id number] 06 Jun, 2017 Tonsillitis J03.90 [facility] [address] [facility] [id number] [address] [place] [phone] Jun, [facility] [address] [facility] [id number] [address] [place] [id number] Jun, Acute non-recurrent maxillar y sinusitis J01.00 [facility] [address] [facility] [id number] [address] [place] [phone] Jun, [facility] [address] [facility] [id number] [address] [place] [phone] May, [facility] [address] [facility] [id number] [address] [place] [phone] May, [facility] [address] [facility] [id number] [address] [place] [id number] May, GERD (gastroesophageal reflu x disease) K21.9 [facility] [address] [facility] [id number] [address] [place] [id number] May, Migraine without aura and wi thout status migrainosus, not intractable G43.009 [facility] [address] [facility] [id number] [address] [place] [phone] May, [facility] [address] [id number] [address] [place] [id number] 16 May, 2017 [facility] [address] [id number] [address] [place] [id number] May, Panlobular emphysema J43.1 a nd Acute non-recurrent maxillary sinusitis J01.00 [facility] [address] [id number] [address] [place] [phone] May, Bipolar 1 disorder, depresse d, moderate F31.32 ; Panic disorder with agoraphobia F40.01 and Akathisia G25.71 [facility] [address] [id number] [address] [place] [phone] Apr, [facility] [address] [facility] [id number] [address] [place] [phone] Apr, [facility] [address] [facility] [id number] [address] [place] [id number] Apr, Acute non-recurrent maxillar y sinusitis J01.00 [facility] [address] [id number] [address] [place] [phone] Apr, Panlobular emphysema J43.1 [facility] [address] [facility] [id number] [address] [place] [phone] 04 Apr, 2017 [facility] [address] [facility] [id number] [address] [place] [phone] 04 Apr, 2017 Exudative tonsillitis J03.90 and Sore throat J02.9 [facility] [address] [id number] [address] [place] [phone] Mar, [facility] [address] [facility] [id number] [address] [place] [phone] 15 Mar, 2017 Acute non-recurrent maxillar y sinusitis J01.00 [facility] [address] [facility] [id number] [address] [place] [phone] Mar, [facility] [address] [facility] [id number] [address] [place] [phone] Mar, Panlobular emphysema J43.1 a nd Diabetes E11.9 [facility] [address] [facility] [id number] [address] [place] [phone] Mar, [facility] [address] [facility] [id number] [address] [place] [phone] 24 Feb, 2017 Wheezing R06.2 and Acute rec urrent pansinusitis J01.41 [facility] [address] [facility] [id number] [address] [place] [phone] Feb, [facility] [address] [place] [id number] [address] [place] [phone] Feb, Acute non-recurrent maxillar y sinusitis J01.00 [place] [address] [place] [id number] [place] [phone] Feb, Chronic obstructive pulmonar y disease, unspecified J44.9 [facility] [address] [place] [id number] [address] [place] [phone] Feb, Hypoxemia R09.02 and Chronic obstructive pulmonary disease, unspecified J44.9 [facility] [address] [place] [id number] [place] [phone] 28 Jan, 2017 Bipolar 1 disorder, depresse d, moderate F31.32 ; Panic disorder with agoraphobia F40.01 ; Chronic post-traumatic stress disorder (PTSD) F43.12 ; Diabetes E11.9 and Moderate persistent asthma without complication J45.40 [facility] [address] [place] [id number] [address] [place] [id number] Jan, [facility] [address] [place] [id number] [place] [phone] 19 Jan, 2017 Acute non-recurrent maxillar y sinusitis J01.00 [place] [address] [place] [id number] [address] [place] [id number] 18 Jan, 2017 [facility] [address] [place] [id number] [address] [place] [id number] 18 Jan, 2017 [facility] [address] [id number] [address] [place] [id number] 12 Jan, 2017 Moderate persistent asthma w ithout complication J45.40 and Hypoxemia R09.02 [facility] [address] [id number] [address] [place] [phone] 11 Jan, 2017 Moderate persistent asthma w ithout complication J45.40 and Hypoxemia R09.02 [facility] [address] [id number] [address] [place] [id number] Jan, [facility] [address] [id number] [address] [place] [id number] Dec, Acute non-recurrent maxillar y sinusitis J01.00 [facility] [address] [id number] [address] [place] [id number] Dec, Chronic obstructive pulmonar y disease, unspecified J44.9 [facility] [address] [id number] [address] [place] [phone] Dec, [facility] [address] [id number] [address] [id number] Dec, Mild persistent asthma witho ut complication J45.30 and Other chronic pain G89.29 [facility] [address] [id number] [address] [place] [id number] Nov, [facility] [address] [id number] [address] [place] [phone] Nov, Acute non-recurrent maxillar y sinusitis J01.00 [facility] [address] [id number] [address] [place] [phone] Nov, [facility] [address] [id number] [address] [place] [id number] Nov, [facility] [address] [id number] [address] [place] [id number] Oct, [facility] [address] [id number] [address] [place] [id number] Oct, Bipolar 1 disorder, depresse d, partial remission F31.75 ; Panic disorder with agoraphobia F40.01 and Chronic post-traumatic stress disorder (PTSD) F43.12 [place] [address] [facility] [id number] [address] [phone] Oct, Acute non-recurrent maxillar y sinusitis J01.00 [place] [address] [facility] [id number] [address] [place] [id number] Oct, [place] [address] [facility] [id number] [address] [place] [phone] Oct, Diabetes E11.9 [place] [address] [place] [id number] [address] [place] [phone] September, Diabetes E11.9 [place] [address] [place] [id number] [address] [place] [id number] September, Diabetes E11.9 and Sinus tac hycardia R00.0 [place] [address] [facility] [id number] [address] [place] [id number] September, [place] [address] [address] [facility] [id number] [address] [place] [phone] September, [place] [address] [address] [place] [id number] [address] [place] [phone] Aug, Diabetes E11.9 and Lumbago w ith sciatica, right side M54.41 [place] [address] [facility] [id number] [address] [place] [phone] Aug, [place] [address] [place] [id number] [address] [place] [id number] 30 Jul, 2016 Bipolar 1 disorder, depresse d, moderate F31.32 ; Panic disorder with agoraphobia F40.01 and Chronic post-traumatic stress disorder (PTSD) F43.12 [place] [address] [place] [id number] [address] [place] [id number] Jul, Sore throat J02.9 [facility] [address] [id number] [address] [place] [phone] Jul, [facility] [address] [id number] [address] [place] [phone] Jul, [facility] [address] [facility] [id number] [address] [place] [phone] Jul, [facility] [address] [id number] [address] [place] [phone] Jul, [facility] [address] [id number] [address] [place] [phone] Jul, Sore throat J02.9 and Pharyn gitis, unspecified etiology J02.9 [facility] [address] [id number] [address] [place] [phone] 27 Jun, 2016 [facility] [address] [id number] [address] [place] [phone] 23 Jun, 2016 Diabetes E11.9 [facility] [address] [id number] [address] [place] [phone] Jun, [facility] [address] [id number] [address] [place] [phone] Jun, [facility] [address] [id number] [address] [place] [phone] Jun, [facility] [address] [id number] [address] [place] [phone] 16 Jun, 2016 [facility] [address] [id number] [address] [place] [phone] Jun, [facility] [address] [facility] [id number] [address] [place] [phone] 15 Jun, 2016 [facility] [address] [facility] [id number] [address] [place] [phone] Jun, [place] [address] [place] [id number] [address] [place] [phone] Jun, [place] [address] [place] [id number] [place] [phone] May, Diabetes E11.9 ; Other chron ic pain G89.29 ; Acute recurrent maxillary sinusitis J01.01 ; Bipolar I disorder with depression F31.9 and Anxiety disorder, unspecified F41.9 [place] [address] [place] [id number] [address] [place] [phone] May, [place] [address] [place] [id number] [address] [place] [id number] May, Diabetes E11.9 ; Bipolar I d isorder with depression F31.9 ; Anxiety disorder, unspecified F41.9 ; Other chronic pain G89.29 and Acute recurrent maxillary sinusitis J01.01 [place] [address] [phone] May, [place] [address] [place] [id number] [place] [phone] May, Attention deficit hyperactiv ity disorder (ADHD), predominantly inattentive type F90.0 [place] [address] [place] [id number] [place] [phone] May, [place] [address] [place] [id number] [address] [place] [phone] Apr, Attention deficit hyperactiv ity disorder (ADHD), predominantly inattentive type F90.0 and Non-seasonal allergic rhinitis due to other allergic trigger J30.89 [place] [address] [place] [id number] [address] [place] [phone] Apr, Bipolar 1 disorder, depresse d, moderate F31.32 ; Panic disorder with agoraphobia F40.01 and Chronic post-traumatic stress disorder (PTSD) F43.12 [place] [address] [place] [id number] [address] [place] [phone] 06 Apr, 2016 Dental examination Z01.20 [facility] [address] [id number] [address] [place] [place] [phone] Mar, [facility] [address] [id number] [address] [place] [phone] Mar, [facility] [address] [id number] [address] [place] [phone] Mar, Bipolar I disorder with depr ession F31.9 and Anxiety disorder, unspecified F41.9 [facility] [address] [id number] [address] [place] [phone] 08 Mar, 2016 Panic disorder with agorapho syd F40.01 ; Bipolar 1 disorder, depressed, moderate F31.32 and Chronic post-traumatic stress disorder (PTSD) F43.12 [place] [address] [id number] [address] [place] [phone] Mar, [facility] [address] [id number] [address] [place] [phone] Mar, Dental caries K02.9 [facility] [address] [id number] [address] [place] [id number] 24 Feb, 2016 Lumbago with sciatica, left side M54.42 ; Lumbago with sciatica, right side M54.41 and Other chronic pain G89.29 [facility] [address] [id number] [address] [place] [phone] Feb, [facility] [address] [id number] [address] [place] [phone] 14 Feb, 2016 [facility] [address] [id number] [address] [place] [phone] 13 Feb, 2016 Bipolar I disorder with depr ession F31.9 ; PTSD (post-traumatic stress disorder) F43.10 and Mood disorder F39 [facility] [address] [id number] [address] [place] [phone] Feb, [facility] [address] [id number] Feb, Dental examination Z01.20 [facility] [address] [phone] Feb, [facility] [address] [id number] Feb, Acute bronchitis, unspecifie d organism J20.9 [facility] [address] [phone] Jan, Mood disorder F39 ; Migraine without aura and without status migrainosus, not intractable G43.009 ; Irritable bowel syndrome, unspecified type K58.9 ; Diabetes E11.9 and Encounter for immunization Z23 [facility] [address] [id number] 15 Jan, 2016 [facility] [address] [id number] Jan, [facility] [address] [phone] Jan, [facility] [address] [phone] Jan, [facility] [address] [phone] Jan, [facility] [address] [id number] Dec, Bipolar I disorder with depr ession F31.9 ; PTSD (post-traumatic stress disorder) F43.10 and Panic disorder with agoraphobia F40.01 [facility] [address] [id number] Dec, Chronic obstructive pulmonar y disease, unspecified COPD type J44.9 ; Tremor R25.1 and Anxiety F41.9 [facility] [address] [id number] Dec, [facility] [address] [id number] [address] [place] [phone] Nov, Tremors of nervous system R2 5.1 and Cramping of feet R25.2 [facility] [address] [id number] [address] [place] [phone] Nov, [facility] [address] [facility] [id number] [address] [place] [phone] Nov, [facility] [address] [facility] [id number] [address] [place] [phone] Oct, Chronic obstructive pulmonar y disease, unspecified J44.9 [facility] [address] [facility] [id number] [address] [place] [phone] Oct, [facility] [address] [facility] [id number] [address] [place] [phone] Oct, Tremor R25.1 [facility] [address] [place] [id number] [address] [place] [id number] Oct, Bipolar I disorder with depr ession F31.9 ; Diabetes E11.9 ; PTSD (post-traumatic stress disorder) F43.10 and Panic disorder with agoraphobia F40.01 [facility] [address] [facility] [id number] [address] [place] [phone] Oct, Mood disorder F39 [place] [address] [place] [id number] [address] [place] [phone] September, [facility] [address] [facility] [id number] [address] [place] [phone] September, Diabetes E11.9 ; Bipolar I d isorder with depression F31.9 ; PTSD (post-traumatic stress disorder) F43.10 and Panic disorder with agoraphobia F40.01 [facility] [address] [facility] [id number] [address] [place] [phone] September, Mood disorder F39 ; Schizoaf fective disorder, unspecified type F25.9 ; Arthritis M19.90 ; Tremor R25.1 ; Acute non-recurrent frontal sinusitis J01.10 and Blood in stool K92.1 [facility] [address] [facility] [id number] [address] [place] [phone] September, [facility] [address] [facility] [id number] [address] [place] [phone] September, Chronic obstructive pulmonar y disease, unspecified J44.9 [facility] [address] [facility] [id number] [address] [place] [phone] September, Diabetes E11.9 [facility] [address] [facility] [id number] [address] [place] [phone] Aug, Other bipolar disorder F31.8 9 and Anxiety disorder, unspecified F41.9 [facility] [address] [place] [id number] [address] [place] [id number] Aug, [facility] [address] [facility] [id number] [address] [place] [phone] Aug, Diabetes E11.9 [facility] [address] [facility] [id number] [address] [place] [phone] Aug, [facility] [address] [facility] [id number] [address] [place] [phone] Aug, Diabetes E11.9 ; Fatigue R53 .83 and Dizziness R42 [facility] [address] [facility] [id number] [address] [place] [phone] Aug, Other bipolar disorder F31.8 9 [facility] [address] [facility] [id number] [address] [place] [phone] Aug, Generalized anxiety disorder F41.1 [facility] [address] [facility] [id number] [address] [place] [id number] 07 Aug, 2015 Other bipolar disorder F31.8 9 and Anxiety disorder, unspecified F41.9 [facility] [address] [facility] [id number] [address] [place] [phone] Aug, [place] [address] [id number] [address] [place] [phone] Jul, [facility] [address] [id number] [address] [place] [phone] Jul, [facility] [address] [id number] [address] [place] [phone] Jul, Bronchitis J40 [facility] [address] [id number] [address] [place] [phone] Jul, Anxiety disorder F41.9 [facility] [address] [id number] [address] [place] [phone] Jul, Other bipolar disorder F31.8 9 and Anxiety disorder, unspecified F41.9 [facility] [address] [id number] [address] [place] [phone] Jul, Other bipolar disorder F31.8 9 and Fibromyalgia M79.7 [facility] [address] [id number] [address] [place] [phone] Jul, [facility] [address] [id number] [address] [place] [phone] Jul, [facility] [address] [facility] [id number] [address] [place] [phone] Jul, [facility] [address] [id number] [address] [place] [phone] Jul, Other bipolar disorder F31.8 9 and Anxiety disorder, unspecified F41.9 [facility] [address] [id number] [address] [place] [phone] Jun, GERD (gastroesophageal reflu x disease) K21.9 [facility] [address] [id number] [address] [place] [phone] Jun, [facility] [address] [facility] [id number] [address] [place] [phone] May, [facility] [address] [id number] [address] [place] [place] [id number] 14 May, 2015 Diabetes E11.9 ; Back pain M 54.9 ; GERD (gastroesophageal reflux disease) K21.9 ; Hypertension I10 and Peripheral neuropathy G62.9 [facility] [address] [id number] [address] [place] [phone] Mar, [facility] [address] [facility] [id number] [address] [place] [phone] Mar, [facility] [address] [facility] [id number] [address] [place] [id number] Mar, Acute sinusitis J01.90 and O titis media, left H66.92 [facility] [address] [facility] [id number] [address] [place] [phone] Feb, [facility] [address] [place] [id number] [place] [phone] Feb, [facility] [address] [place] [id number] [address] [place] [phone] Feb, [facility] [address] [facility] [id number] [address] [place] [phone] Feb, [facility] [address] [place] [id number] [address] [place] [phone] Jan, [facility] [address] [facility] [id number] [address] [place] [phone] Jan, Diabetes 250.00 and Back higinio n 724.5 [facility] [address] [facility] [id number] [address] [place] [phone] Jan, [facility] [address] [place] [id number] [address] [place] [id number] Dec, Diabetes 250.00 ; Benign ess ential hypertension 401.1 and Allergic rhinitis 477.9 [facility] [address] [facility] [id number] [address] [place] [phone] Dec, [facility] [address] [place] [id number] [place] [address], [place] [address] Dec, [facility] [address] [facility] [id number] [address] [place] [phone] Dec, Psychosis 298.9 [facility] [address] [facility] [id number] [address] [place] [phone] Dec, Medication side effect 995.2 0 and Generalized anxiety disorder 300.02 [facility] [address] [facility] [id number] [address] [place] [phone] Dec, Acquired cognitive dysfuncti on 294.9 [facility] [address] [facility] [id number] [address] [place] [phone] Dec, [facility] [address] [place] [id number] [address] [place] [id number] Dec, Unspecified myalgia and myos itis 729.1 and Generalized anxiety disorder 300.02 [facility] [address] [place] [id number] [address] [place] [phone] Nov, [facility] [address] [facility] [id number] [address] [place] [phone] Nov, [facility] [address] [place] [id number] [address] [place] [phone] Nov, [facility] [address] [place] [id number] [address] [place] [id number] Nov, Upper respiratory infection 465.9 and Chronic airway obstruction, not elsewhere classified 496 [facility] [address] [facility] [id number] [address] [place] [phone] Nov, Hyponatremia 276.1 [facility] [address] [facility] [id number] [address] [place] [phone] Oct, [facility] [address] [place] [id number] [address] [place] [phone] Oct, [facility] [address] [place] [id number] [address] [place] [phone] Oct, [facility] [address] [facility] [id number] [address] [place] [phone] Oct, [facility] [address] [facility] [id number] [address] [place] [phone] Oct, Hyponatremia 276.1 [facility] [address] [facility] [id number] [address] [place] [id number] Oct, [facility] [address] [id number] [address] [place] [phone] Oct, [facility] [address] [facility] [id number] [address] [place] [phone] Oct, Generalized anxiety disorder 300.02 [facility] [address] [facility] [id number] [address] [place] [place] [phone] Oct, Generalized anxiety disorder 300.02 and Diabetes 250.00 [facility] [address] [facility] [id number] [address] [place] [id number] Aug, [facility] [address] [facility] [id number] [address] [place] [phone] Aug, [facility] [address] [facility] [id number] [address] [place] [phone] Jul, [facility] [address] [facility] [id number] [address] [place] [phone] Jul, [facility] [address] [facility] [id number] [address] [place] [phone] Jun, [facility] [address] [facility] [id number] [address] [place] [phone] Jun, [facility] [address] [facility] [id number] [address] [place] [phone] Jun, [facility] [address] [facility] [id number] [address] [place] [phone] 06 Jun, 2013 [facility] [address] [facility] [id number] [address] [place] [phone] Jun, [facility] [address] [id number] [address] [place] [address], [place] [id number] May, [facility] [address] [id number] [address] [place] [address], [place] [id number] May, [facility] [address] [id number] [address] [place] [address], [place] [address] Apr, [facility] [address] [id number] [address] [place] [address], [place] [id number] Apr, [facility] [address] [id number] [address] [place] [address], [place] [address] Apr, [facility] [address] [id number] [address] [place] [address], [place] [id number] Apr, [facility] [address] [id number] [address] [place] [address], [place] [id number] Apr, [facility] [address] [id number] [address] [place] [address], [place] [address] Apr, [facility] [address] [id number] [address] [place] [address], [place] [address] Apr, [facility] [address] [id number] [address] [place] [address], [place] [address] Apr, [facility] [address] [id number] [address] [place] [address], [place] [address] Feb, [facility] [address] [id number] [address] [place] [address], [place] [address] Feb, [facility] [address] [id number] [address] [place] [address], [place] [address] Jan, [facility] [address] [id number] [address] [place] [address], [place] [address] Jan, [facility] [address] [id number] [address] [place] [address], [place] [id number] Dec, [facility] [address] [id number] [address] [place] [address], [place] [address] Dec, [facility] [address] [id number] [address] [place] [address], [place] [address] Dec, [facility] [address] [id number] [address] [place] [address], [place] [address] Nov, [facility] [address] [id number] [address] [place] [address], [place] [address] Nov, [facility] [address] [id number] [address] [place] [address], [place] [address] Nov, [facility] [address] [id number] [address] [place] [address], [place] [address] Oct, [facility] [address] [id number] [address] [place] [address], [place] [address] Oct, [facility] [address] [id number] [address] [place] [address], [place] [address] Oct, [facility] [address] [id number] [address] [place] [address], [place] [address] September, [facility] [address] [id number] [address] [place] [address], [place] [address] September, [facility] [address] [id number] [address] [place] [address], [place] [address] September, [facility] [address] [id number] [address] [place] [address], [place] [address] Aug, [facility] [address] [id number] [address] [place] [address], [place] [address] Aug, [facility] [address] [id number] [address] [place] [address], [place] [address] Aug, [facility] [address] [id number] [address] [place] [address], [place] [address] 16 Aug, 2011 [facility] [address] [id number] [address] [place] [address], [place] [address] Jul, [facility] [address] [id number] [address] [place] [address], [place] [address] Jun, [facility] [address] [id number] [address] [place] [address], [place] [id number] 14 Jun, 2011 [facility] [address] [id number] [address] [place] [address], [place] [id number] 13 Jun, 2011 [facility] [address] [id number] [address] [place] [address], [place] [id number] 07 Jun, 2011 [facility] [address] [id number] [address] [place] [address], [place] [address] Jun, [facility] [address] [id number] [address] [place] [address], [place] [id number] 13 May, 2011 [facility] [address] [id number] [address] [place] [address], [place] [id number] May, [facility] [address] [id number] [address] [place] [address], [place] [phone] May, [facility] [address] [id number] [address] [place] [address], [place] [address] May, [facility] [address] [id number] [address] [place] [address], [place] [address] Apr, [facility] [address] [id number] [address] [place] [address], [place] [address] Apr, [facility] [address] [id number] [address] [place] [address], [place] [id number] 05 Apr, 2011 [facility] [address] [id number] [address] [place] [address], [place] [address] Mar, [facility] [address] [id number] [address] [place] [address], [place] [address] Mar, [facility] [address] [id number] [address] [place] [address], [place] [id number] Mar, [facility] [address] [id number] [address] [place] [id number] 13 Feb, 2011 [facility] [address] [id number] [address] [place] [id number] 13 Feb, 2011 [facility] [address] [id number] [address] [place] [id number] 13 Feb, 2011 [facility] [address] [id number] [address] [place] [id number] Nov, [facility] [address] [id number] [address] [place] [place] [phone] September, [facility] [address] [id number] [address] [place] [place] [phone] Aug, [facility] [address] [id number] [address] [place] [place] [phone] Jul, [facility] [address] [id number] [address] [place] [place] [id number] May, [facility] [address] [id number] [address] [place] [place] [phone] Apr, [facility] [address] [id number] [address] [place] [place] [phone] Apr, [facility] [address] [id number] [address] [place] [place] [phone] Apr, [facility] [address] [id number] [address] [place] [place] [phone] Apr, [facility] [address] [id number] [address] [place] [phone] Apr, IMMUNIZATIONS No Known Immunizations SOCIAL HISTORY [...]
--- OUTSIDE RECORDS SUMMARY | 2019-07-17 11:30 | XMS REPORT ---
Author Author Sujey GANDHI Organization [facility] Address [address] [place] [address] Care Team Providers Care Rn Transplant Name Role Phone WHIT GANDHI Unavailable PROBLEMS Type Condition ICD9-CM Code XJP20-LD Code Onset Dates Condition S tatus SNOMED Code Problem Diabetes E11.9 Active 64488411 Problem GERD (gastroesophageal reflux disease) K21.9 Active 268835549 Problem Anxiety disorder, unspecified F41.9 Active 149461596 Problem Hypertension I10 Active 5688654 3 Problem Other bipolar disorder F31.89 Active 53283128 Problem Fibromyalgia M79.7 Active 4414986 7 Problem Panic disorder with agoraphobia F40.01 Active 03855662 Problem Chronic obstructive pulmonary disease, unspecified J44.9 Active 11377508 Problem Lumbago with sciatica, left side M54.42 Active 630739641 Problem Migraine without aura and without status migrain osus, not intractable G43.009 Active 919066723 Problem Lumbago with sciatica, right side M54.41 Active 403728773 Problem Fibrocystic disease of right breast N60.11 Active 82431830 Problem Other chronic pain G89.29 Active 8 5515831 Problem Fibrocystic disease of left breast N60.12 Active 31333703 Problem Irritable bowel syndrome with constipation K58.1 Active 774756016 Problem Arthritis M19.90 Active 8170365 Problem Abnormal mammogram of right breast R92.8 Active 777505798 Problem Daytime somnolence R40.0 Active 1 91369981240 Problem Bipolar affective disorder, remission status unspecified F31.9 Active 93431134 Problem Chronic post-traumatic stress disorder (PTSD) F43. 12 Active 099189580 Problem Bipolar 1 disorder, depressed, moderate F31.32 Active 02965034 Problem Schizoaffective disorder, bipolar type F25.0 Active 01667635 Problem Irritable bowel syndrome with both constipation and diarrh ea K58.2 Active 86470876 Problem Slow transit constipation K59.01 Acti ve 19160040 Problem Essential tremor G25.0 Active 609 931562 Problem Acute non-recurrent maxillary sinusitis J01.00 Active 43312674 Problem Back pain M54.9 Active 401672057 Problem Bipolar 1 disorder, depressed, partial remission F 31.75 Active 34916348 Problem Attention deficit hyperactiv ity disorder (ADHD), predominantly inattentive type F90.0 Active 59357036 Problem Bipolar I disorder with depression F31.9 Active 30884525 Problem Panlobular emphysema J43.1 Active 3557846 Problem Akathisia G25.71 Active 748790238 Problem Mild persistent asthma without complication J45.30 Active 026323486 Problem Moderate persistent asthma without complication J4 5.40 Active 844456735 ALLERGIES No Information ENCOUNTERS Encounter Location Date Diagnosis [place] [address] [address] Mar, [place] [address] [address] Jan, [place] [address] [address] Jan, Abnormal mammogram of right breast R92.8 [place] [address] [address] Dec, Daytime somnolence R40.0 and Right otitis media with effusion H65.91 [place] [id number] [place] [address] Dec, [place] [address] [place] [id number] [address] [place] [address] Dec, Cerebrovascular accident (CV A) due to occlusion of right cerebellar artery I63.541 [place] [address] [place] [id number] [address] [place] [address] Dec, [place] [address] [place] [id number] [address] [place] [address] Dec, [place] [address] [place] [id number] [address] [place] [address] Nov, Bipolar 1 disorder, depresse d, partial remission F31.75 and Panic disorder with agoraphobia F40.01 [facility] [address] [id number] [address] [place] [address] Nov, Panlobular emphysema J43.1 [facility] [address] [id number] [address] [place] [address] Nov, Cerebrovascular accident (CV A) due to occlusion of right cerebellar artery I63.541 and Acute non-recurrent maxillary sinusitis J01.00 [facility] [address] [id number] [address] [place] [address] Nov, Panlobular emphysema J43.1 [facility] [address] [id number] [address] [place] [address] Nov, [facility] [address] [id number] [address] [place] [address] Nov, [facility] [address] [id number] [address] [place] [address] Nov, [facility] [address] [id number] [address] [place] [address] Nov, [facility] [address] [id number] [address] [place] [address] Nov, [facility] [address] [id number] [address] [place] [address] Nov, [facility] [address] [id number] [address] [place] [address] Nov, [facility] [address] [id number] [address] [place] [address] Nov, Mild persistent asthma witho ut complication J45.30 and Irritable bowel syndrome with both constipation and diarrhea K58.2 [facility] [address] [id number] [address] [place] [address] Nov, [facility] [address] [id number] [address] [place] [address] [address], [address] [facility] [address] [id number] [address] [place] [address] Oct, [facility] [address] [id number] [address] [place] [address] Oct, Type 2 diabetes mellitus wit h diabetic neuropathy, unspecified whether [facility] insulin use E11.40 ; Diabetes E11.9 ; Slow transit constipation K59.01 ; Edema of both legs R60.0 and Dysfunction of right eustachian tube H69.81 [facility] [address] [id number] [address] [place] [address] Oct, Frequent headaches R51 [facility] [address] [id number] [address] [place] [address] Oct, [facility] [address] [id number] [address] [place] [address] Oct, [facility] [address] [id number] [address] [place] [address] Oct, [facility] [address] [id number] [address] [place] [address] Oct, [facility] [address] [id number] [address] [place] [address] Oct, [facility] [address] [id number] [address] [place] [address] Oct, [facility] [address] [id number] [address] [place] [address] Oct, [facility] [address] [facility] [id number] [address] [place] [address] Oct, [facility] [address] [facility] [id number] [address] [place] [address] September, Frequent headaches R51 [facility] [address] [id number] [address] [place] [address] September, Bilateral otitis media with effusion H65.93 ; Dizziness R42 and Essential tremor G25.0 [facility] [address] [facility] [id number] [address] [place] [address] September, Chronic obstructive pulmonar y disease, unspecified COPD type J44.9 [facility] [address] [facility] [id number] [address] [place] [address] September, Chronic obstructive pulmonar y disease, unspecified COPD type J44.9 [facility] [address] [id number] [address] [place] [address] September, Migraine without aura and wi thout status migrainosus, not intractable G43.009 [facility] [address] [facility] [id number] [address] [place] [address] September, [facility] [address] [place] [id number] [address] [place] [address] September, [facility] [address] [place] [id number] [address] [place] [address] September, [facility] [address] [place] [id number] [address] [place] [address] September, Frequent headaches R51 [facility] [address] [facility] [id number] [address] [place] [address] Aug, [facility] [address] [place] [id number] [address] [place] [address] Aug, Breast mass, right N63.10 [facility] [address] [facility] [id number] [address] [place] [address] Aug, Breast lump N63.0 [facility] [address] [facility] [id number] [address] [place] [address] Aug, [facility] [address] [place] [id number] [address] [place] [address] Aug, Bipolar affective disorder, remission status unspecified F31.9 and Diabetes E11.9 [place] [address] [id number] [address] [place] [address] 18 Aug, 2017 Diabetes E11.9 ; Schizoaffec tive disorder, bipolar type F25.0 ; Pharyngitis due to other organism J02.8 ; Panlobular emphysema J43.1 and Irritable bowel syndrome with both constipation and diarrhea K58.2 [place] [address] [facility] [id number] [address] [place] [address] Aug, Abnormal mammogram R92.8 [place] [address] [id number] [address] [place] [address] Aug, [place] [address] [facility] [id number] [place] [address] Aug, Bipolar 1 disorder, depresse d, moderate F31.32 ; Panic disorder with agoraphobia F40.01 and Chronic post-traumatic stress disorder (PTSD) F43.12 [place] [address] [facility] [id number] [address] [place] [address] Aug, [place] [address] [facility] [id number] [address] [place] [address] Aug, [place] [address] [facility] [id number] [address] [place] [address] Aug, [place] [address] [facility] [id number] [address] [place] [address] Jul, [place] [address] [facility] [id number] [address] [place] [address] Jul, Mild persistent asthma witho ut complication J45.30 [place] [address] [facility] [id number] [address] [place] [address] Jul, Mild persistent asthma witho ut complication J45.30 [place] [address] [facility] [id number] [address] [place] [address] Jul, Bipolar affective disorder, remission status unspecified F31.9 ; Diabetes E11.9 and Irritable bowel syndrome with constipation K58.1 [facility] [address] [id number] [address] [place] [address] [address], [address] [facility] [address] [id number] [address] [place] [address] Jul, [facility] [address] [id number] [address] [place] [address] Jul, Frequent headaches R51 [facility] [address] [id number] [address] [place] [address] Jul, [facility] [address] [id number] [address] [place] [address] Jul, [facility] [address] [id number] [address] [place] [address] Jul, [facility] [address] [facility] [id number] [address] [place] [address] Jul, Frequent headaches R51 ; Fib rocystic disease of left breast N60.12 ; Fibrocystic disease of right breast N60.[address] [facility] [address] [id number] [address] [place] [address] Jul, [facility] [address] [facility] [id number] [address] [place] [address] Jul, [facility] [address] [facility] [id number] [address] [place] [address] Jun, Exudative tonsillitis J03.90 [facility] [address] [id number] [address] [place] [address] Jun, [facility] [address] [facility] [id number] [address] [place] [address] Jun, [facility] [address] [facility] [id number] [address] [place] [address] 15 Jun, 2017 Mild persistent asthma witho ut complication J45.30 ; Chronic obstructive pulmonary disease, unspecified COPD type J44.9 and Exudative tonsillitis J03.90 [facility] [address] [facility] [id number] [address] [place] [address] 13 Jun, 2017 Encounter for immunization Z 23 [facility] [address] [facility] [id number] [address] [place] [address] [address], [address] [facility] [address] [facility] [id number] [address] [place] [address] Jun, [facility] [address] [facility] [id number] [address] [place] [address] Jun, [facility] [address] [facility] [id number] [address] [place] [address] 06 Jun, [address] [facility] [address] [facility] [id number] [address] [place] [address] [address], [address] [facility] [address] [facility] [id number] [address] [place] [address] Jun, Acute non-recurrent maxillar y sinusitis J01.00 [facility] [address] [facility] [id number] [address] [place] [address] [address], [address] [facility] [address] [facility] [id number] [address] [place] [address] May, [facility] [address] [facility] [id number] [address] [place] [address] May, [facility] [address] [facility] [id number] [address] [place] [address] May, GERD (gastroesophageal reflu x disease) K21.9 [facility] [address] [facility] [id number] [address] [place] [address] May, Migraine without aura and wi thout status migrainosus, not intractable G43.009 [facility] [address] [facility] [id number] [address] [place] [address] May, [facility] [address] [facility] [id number] [address] [place] [address] May, [facility] [address] [id number] [address] [place] [address] May, Panlobular emphysema J43.1 a nd Acute non-recurrent maxillary sinusitis J01.00 [facility] [address] [facility] [id number] [address] [place] [address] May, Bipolar 1 disorder, depresse d, moderate F31.32 ; Panic disorder with agoraphobia F40.[address] [facility] [address] [id number] [address] [place] [address] Apr, [facility] [address] [facility] [id number] [address] [place] [address] Apr, [facility] [address] [facility] [id number] [address] [place] [address] Apr, Acute non-recurrent maxillar y sinusitis J01.00 [facility] [address] [id number] [address] [place] [address] Apr, Panlobular emphysema J43.1 [facility] [address] [facility] [id number] [address] [place] [address] 04 Apr, 2017 [facility] [address] [facility] [id number] [address] [place] [address] 04 Apr, 2017 Exudative tonsillitis J03.90 [address]9 [facility] [address] [id number] [address] [place] [address] [address], [address] [facility] [address] [facility] [id number] [address] [place] [address] 15 Mar, 2017 Acute non-recurrent maxillar y sinusitis J01.00 [facility] [address] [facility] [id number] [address] [place] [address] Mar, [facility] [address] [facility] [id number] [address] [place] [address] Mar, Panlobular emphysema J43.1 a nd Diabetes E11.9 [facility] [address] [facility] [id number] [address] [place] [phone] Mar, [facility] [address] [facility] [id number] [address] [place] [address] 24 Feb, 2017 Wheezing R06.2 and Acute rec urrent pansinusitis J01.41 [facility] [address] [facility] [id number] [address] [place] [address] Feb, [facility] [address] [facility] [id number] [place] [address] Feb, Acute non-recurrent maxillar y sinusitis J01.00 [place] [address] [place] [id number] [place] [address] Feb, Chronic obstructive pulmonar y disease, unspecified J44.9 [facility] [address] [place] [id number] [address] [place] [address] Feb, Hypoxemia R09.02 and Chronic obstructive pulmonary disease, unspecified J44.9 [facility] [address] [place] [id number] [place] [address] 28 Jan, 2017 Bipolar 1 disorder, depresse d, moderate F31.32 ; Panic disorder with agoraphobia F40.01 ; Chronic post-traumatic stress disorder (PTSD) F43.12 ; Diabetes E11.9 and Moderate persistent asthma without complication J45.40 [facility] [address] [place] [id number] [address] [place] [address] Jan, [facility] [address] [address] 19 Jan, 2017 Acute non-recurrent maxillar y sinusitis J01.00 [place] [address] [place] [id number] [address] [place] [address] [address], [address] [facility] [address] [address] 18 Jan, 2017 [facility] [address] [id number] [address] [place] [address] Jan, Moderate persistent asthma w ithout complication J45.[address] [facility] [address] [id number] [address] [place] [address] Jan, Moderate persistent asthma w ithout complication J45.[address] [facility] [address] [id number] [address] [place] [address] Jan, [facility] [address] [id number] [address] [place] [address] Dec, Acute non-recurrent maxillar y sinusitis J01.00 [facility] [address] [id number] [address] [place] [address] Dec, Chronic obstructive pulmonar y disease, unspecified J44.9 [facility] [address] [id number] [address] [place] [address] Dec, [facility] [address] [id number] [address] [place] [address] Dec, Mild persistent asthma witho ut complication J45.30 and Other chronic pain G89.29 [facility] [address] [id number] [address] [place] [address] Nov, [facility] [address] [id number] [address] [place] [address] Nov, Acute non-recurrent maxillar y sinusitis J01.00 [facility] [address] [id number] [address] [place] [address] Nov, [facility] [address] [id number] [address] [place] [address] Nov, [facility] [address] [id number] [address] [place] [address] Oct, [facility] [address] [place] [id number] [address] [place] [address] Oct, Bipolar 1 disorder, depresse d, partial remission F31.75 ; Panic disorder with agoraphobia F40.01 and Chronic post-traumatic stress disorder (PTSD) F43.12 [facility] [address] [place] [id number] [address] [place] [address] Oct, Acute non-recurrent maxillar y sinusitis J01.00 [facility] [id number] [address] [place] [phone] Oct, [place] [id number] [place] [phone] Oct, Diabetes E11.9 [place] [id number] [place] [phone] September, Diabetes E11.9 [place] [id number] [place] [phone] September, Diabetes E11.9 and Sinus tac hycardia R00.0 [place] [id number] [place] [id number] September, [place] [id number] [place] [phone] September, [place] [id number] [place] [phone] Aug, Diabetes E11.9 and Lumbago w ith sciatica, right side M54.41 [facility] [id number] [address] [place] [phone] Aug, [place] [id number] [place] [id number] Jul, Bipolar 1 disorder, depresse d, moderate F31.32 ; Panic disorder with agoraphobia F40.01 and Chronic post-traumatic stress disorder (PTSD) F43.12 [place] [id number] [place] [phone] Jul, Sore throat J02.9 [facility] [address] [id number] [address] [place] [phone] 16 Jul, 2016 [facility] [address] [id number] [address] [place] [id number] Jul, [facility] [address] [id number] [address] [place] [phone] Jul, [facility] [address] [id number] [address] [place] [id number] Jul, [facility] [address] [id number] [address] [place] [phone] Jul, Sore throat J02.9 and Pharyn gitis, unspecified etiology J02.9 [facility] [address] [id number] [address] [place] [id number] Jun, [facility] [address] [id number] [address] [place] [address] Jun, Diabetes E11.9 [facility] [address] [id number] [address] [place] [address] Jun, [facility] [address] [id number] [address] [place] [id number] Jun, [facility] [address] [id number] [address] [place] [address] Jun, [facility] [address] [id number] [address] [place] [address] Jun, [facility] [address] [id number] [address] [place] [address] Jun, [facility] [address] [id number] [address] [place] [id number] [address], [address] [facility] [address] [id number] [address] [place] [address] Jun, [facility] [address] [facility] [id number] [address] [place] [address] Jun, [facility] [address] [place] [id number] [address] [place] [address] May, Diabetes E11.9 ; Other chron ic pain G89.29 ; Acute recurrent maxillary sinusitis J01.01 ; Bipolar I disorder with depression F31.9 and Anxiety disorder, unspecified F41.9 [place] [address] [place] [id number] [address] [place] [address] May, [place] [address] [facility] [id number] [address] [place] [address] May, Diabetes E11.9 ; Bipolar I d isorder with depression F31.9 ; Anxiety disorder, unspecified F41.9 ; Other chronic pain G89.29 and Acute recurrent maxillary sinusitis J01.01 [place] [address] [place] [id number] [address] [place] [address] May, [place] [address] [place] [id number] [address] [place] [address] May, Attention deficit hyperactiv ity disorder (ADHD), predominantly inattentive type F90.0 [place] [address] [place] [id number] [address] [place] [address] May, [place] [address] [place] [id number] [address] [place] [address] Apr, Attention deficit hyperactiv ity disorder (ADHD), predominantly inattentive type F90.0 and Non-seasonal allergic rhinitis due to other allergic trigger J30.89 [place] [address] [facility] [id number] [address] [place] [address] 15 Apr, 2016 Bipolar 1 disorder, depresse d, moderate F31.32 ; Panic disorder with agoraphobia F40.01 and Chronic post-traumatic stress disorder (PTSD) F43.12 [place] [address] [place] [id number] [address] [place] [address] 06 Apr, [address] [facility] [address] [id number] [address] [place] [address] Mar, [facility] [address] [id number] [address] [place] [address] Mar, [facility] [address] [id number] [address] [place] [address] Mar, Bipolar I disorder with depr ession F31.9 and Anxiety disorder, unspecified F41.9 [facility] [address] [id number] [address] [place] [phone] 08 Mar, 2016 Panic disorder with agorapho syd F40.01 ; Bipolar 1 disorder, depressed, moderate F31.32 and Chronic post-traumatic stress disorder (PTSD) F43.12 [place] [address] [id number] [address] [place] [address] Mar, [place] [address] [id number] [address] [place] [address] Mar, Dental caries K02.9 [facility] [address] [id number] [address] [place] [address] 24 Feb, 2016 Lumbago with sciatica, left side M54.42 ; Lumbago with sciatica, right side M54.41 and Other chronic pain G89.29 [facility] [address] [id number] [address] [place] [address] Feb, [facility] [address] [id number] [address] [place] [id number] 14 Feb, 2016 [facility] [address] [id number] [address] [place] [address] Feb, Bipolar I disorder with depr ession F31.9 ; PTSD (post-traumatic stress disorder) F43.[address] Mood [address]39 [facility] [address] [id number] [address] [place] [address] Feb, [facility] [address] [id number] [address] [place] [address] Feb, Dental examination Z01.20 [facility] [id number] [place] [phone] 07 Feb, 2016 [facility] [address] [place] [id number] [address] [place] [address] Feb, Acute bronchitis, unspecifie d organism J20.9 [facility] [address] [address] Jan, Mood disorder F39 ; Migraine without aura and without status migrainosus, not intractable G43.009 ; Irritable bowel syndrome, unspecified type K58.9 ; Diabetes E11.9 and Encounter for immunization Z23 [facility] [address] [phone] [address], [address] [facility] [address] [address] Jan, [facility] [address] [address] Jan, [facility] [address] [address] Jan, [facility] [address] [address] Jan, [facility] [address] [address] Dec, Bipolar I disorder with depr ession F31.9 ; PTSD (post-traumatic stress disorder) F43.10 and Panic disorder with agoraphobia F40.01 [facility] [address] [address] Dec, Chronic obstructive pulmonar y disease, unspecified COPD type J44.9 ; Tremor R25.[address] [facility] [address] [address] Dec, [facility] [address] [facility] [id number] [address] [place] [address] Nov, Tremors of nervous system R2 5.1 and Cramping of feet R25.2 [facility] [address] [id number] [address] [place] [address] Nov, [facility] [address] [facility] [id number] [address] [place] [address] Nov, [facility] [address] [facility] [id number] [address] [place] [address] Oct, Chronic obstructive pulmonar y disease, unspecified J44.9 [place] [address] [facility] [id number] [address] [place] [address] Oct, [place] [address] [facility] [id number] [address] [place] [address] Oct, Tremor R25.1 [place] [address] [place] [id number] [address] [place] [address] Oct, Bipolar I disorder with depr ession F31.9 ; Diabetes E11.9 ; PTSD (post-traumatic stress disorder) F43.10 and Panic disorder with agoraphobia F40.01 [place] [address] [place] [id number] [address] [place] [address] Oct, Mood disorder F39 [place] [address] [place] [id number] [address] [place] [address] September, [place] [address] [place] [id number] [address] [place] [phone] September, Diabetes E11.9 ; Bipolar I d isorder with depression F31.9 ; PTSD (post-traumatic stress disorder) F43.10 and Panic disorder with agoraphobia F40.01 [place] [address] [facility] [id number] [address] [place] [address] September, Mood disorder F39 ; Schizoaf fective disorder, unspecified type F25.9 ; Arthritis M19.90 ; Tremor R25.1 ; Acute non-recurrent frontal sinusitis J01.10 and Blood in stool K92.1 [facility] [address] [id number] [address] [place] [address] September, [facility] [address] [facility] [id number] [address] [place] [address] September, Chronic obstructive pulmonar y disease, unspecified J44.9 [facility] [address] [facility] [id number] [address] [place] [address] September, Diabetes E11.9 [facility] [address] [facility] [id number] [address] [place] [address] Aug, Other bipolar disorder F31.8 9 and Anxiety disorder, unspecified F41.9 [facility] [address] [facility] [id number] [address] [place] [phone] Aug, [facility] [address] [facility] [id number] [address] [place] [address] Aug, Diabetes E11.9 [facility] [address] [facility] [id number] [address] [place] [address] Aug, [facility] [address] [facility] [id number] [address] [place] [address] Aug, Diabetes E11.9 ; Fatigue R53 [address] [facility] [address] [facility] [id number] [address] [place] [address] Aug, Other bipolar disorder F31.[address] [facility] [address] [id number] [address] [place] [address] Aug, Generalized anxiety disorder F41.1 [facility] [address] [facility] [id number] [address] [place] [address] Aug, Other bipolar disorder F31.8 9 and Anxiety disorder, unspecified F41.9 [facility] [address] [facility] [id number] [address] [place] [address] Aug, [facility] [address] [id number] [address] [place] [address] [address], [address] [facility] [address] [id number] [address] [place] [phone] Jul, [facility] [address] [id number] [address] [place] [phone] Jul, Bronchitis J40 [facility] [address] [facility] [id number] [address] [place] [id number] Jul, Anxiety disorder F41.9 [facility] [address] [id number] [address] [place] [address] Jul, Other bipolar disorder F31.8 9 and Anxiety disorder, unspecified F41.9 [facility] [address] [facility] [id number] [address] [place] [address] Jul, Other bipolar disorder F31.8 [address] [facility] [address] [facility] [id number] [address] [place] [phone] Jul, [facility] [address] [facility] [id number] [address] [place] [phone] Jul, [facility] [address] [facility] [id number] [address] [place] [address] Jul, [facility] [address] [facility] [id number] [address] [place] [address] Jul, Other bipolar disorder F31.8 9 and Anxiety disorder, unspecified F41.9 [facility] [address] [id number] [address] [place] [phone] Jun, GERD (gastroesophageal reflu x disease) K21.9 [facility] [address] [id number] [address] [place] [address] Jun, [facility] [address] [facility] [id number] [address] [place] [phone] May, [facility] [address] [facility] [id number] [address] [place] [address] May, Diabetes E11.9 ; Back pain M 54.9 ; GERD (gastroesophageal reflux disease) K21.9 ; Hypertension I10 and Peripheral neuropathy G62.9 [facility] [address] [facility] [id number] [address] [place] [address] Mar, [facility] [address] [facility] [id number] [address] [place] [address] Mar, [facility] [address] [facility] [id number] [place] [address] Mar, Acute sinusitis J01.90 and O titis media, left H66.92 [facility] [address] [facility] [id number] [address] [place] [address] Feb, [facility] [address] [place] [id number] [address] [place] [address] Feb, [facility] [address] [place] [id number] [address] [place] [address] Feb, [facility] [address] [place] [id number] [address] [place] [address] Feb, [facility] [address] [place] [id number] [address] [place] [address] Jan, [facility] [address] [place] [id number] [address] [place] [address] Jan, Diabetes 250.00 and Back higinio n 724.5 [facility] [address] [facility] [id number] [address] [place] [address] Jan, [facility] [address] [place] [id number] [address] [place] [address] Dec, Diabetes 250.00 ; Benign ess ential hypertension 401.1 and Allergic rhinitis 477.9 [facility] [address] [facility] [id number] [address] [place] [address] Dec, [facility] [address] [place] [id number] [address] [place] [address] Dec, [facility] [address] [facility] [id number] [address] [place] [address] Dec, Psychosis 298.9 [facility] [address] [facility] [id number] [address] [place] [address] Dec, Medication side effect 995.2 0 and Generalized anxiety disorder 300.02 [facility] [address] [facility] [id number] [address] [place] [address] Dec, Acquired cognitive dysfuncti on 294.9 [facility] [address] [facility] [id number] [address] [place] [address] Dec, [facility] [address] [facility] [id number] [address] [place] [address] Dec, Unspecified myalgia and myos itis 729.1 and Generalized anxiety disorder 300.02 [facility] [address] [facility] [id number] [address] [place] [address] Nov, [facility] [address] [facility] [id number] [address] [place] [address] Nov, [facility] [address] [facility] [id number] [address] [place] [address] Nov, [facility] [address] [facility] [id number] [address] [place] [address] Nov, Upper respiratory infection 465.9 and Chronic airway obstruction, not elsewhere classified 496 [facility] [address] [facility] [id number] [address] [place] [address] Nov, Hyponatremia 276.1 [facility] [address] [facility] [id number] [address] [place] [address] Oct, [facility] [address] [facility] [id number] [address] [place] [address] Oct, [facility] [address] [facility] [id number] [address] [place] [address] Oct, [facility] [address] [id number] [address] [place] [address] Oct, [facility] [address] [facility] [id number] [address] [place] [address] Oct, Hyponatremia 276.1 [facility] [address] [facility] [id number] [address] [place] [address] Oct, [facility] [address] [id number] [address] [place] [address] Oct, [facility] [address] [facility] [id number] [address] [place] [address] Oct, Generalized anxiety disorder 300.02 [facility] [address] [facility] [id number] [address] [place] [address] Oct, Generalized anxiety disorder 300.[address] [facility] [address] [id number] [address] [place] [address] Aug, [facility] [address] [facility] [id number] [address] [place] [address] Aug, [facility] [address] [facility] [id number] [address] [place] [address] Jul, [facility] [address] [facility] [id number] [address] [place] [address] Jul, [facility] [address] [id number] [address] [place] [address] Jun, [facility] [address] [id number] [address] [place] [address] Jun, [facility] [address] [id number] [address] [place] [address] Jun, [facility] [address] [facility] [id number] [address] [place] [address] Jun, [facility] [address] [facility] [id number] [address] [place] [address] Jun, [facility] [address] [id number] [address] [place] [address], [place] [address] May, [facility] [address] [id number] [address] [place] [address], [place] [address] May, [facility] [address] [id number] [address] [place] [address], [place] [address] Apr, [facility] [address] [id number] [address] [place] [address], [place] [address] Apr, [facility] [address] [id number] [address] [place] [address], [place] [address] Apr, [facility] [address] [id number] [address] [place] [address], [place] [address] Apr, [facility] [address] [id number] [address] [place] [address], [place] [address] Apr, [facility] [address] [id number] [address] [place] [address], [place] [address] Apr, [facility] [address] [id number] [address] [place] [address], [place] [address] Apr, [facility] [address] [id number] [address] [place] [address], [place] [address] Apr, [facility] [address] [id number] [address] [place] [address], [place] [address] Feb, [facility] [address] [id number] [address] [place] [address], [place] [address] Feb, [facility] [address] [id number] [address] [place] [address], [place] [address] Jan, [facility] [address] [id number] [address] [place] [address], [place] [address] Jan, [facility] [address] [id number] [address] [place] [address], [place] [address] Dec, [facility] [address] [id number] [address] [place] [address], [place] [address] Dec, [facility] [address] [id number] [address] [place] [address], [place] [address] Dec, [facility] [address] [id number] [address] [place] [address], [place] [address] Nov, [facility] [address] [id number] [address] [place] [address], [place] [address] Nov, [facility] [address] [id number] [address] [place] [address], [place] [address] Nov, [facility] [address] [id number] [address] [place] [address], [place] [address] Oct, [facility] [address] [id number] [address] [place] [address], [place] [address] Oct, [facility] [address] [id number] [address] [place] [address], [place] [address] Oct, [facility] [address] [id number] [address] [place] [address], [place] [address] September, [facility] [address] [id number] [address] [place] [address], [place] [address] September, [facility] [address] [id number] [address] [place] [address], [place] [address] September, [facility] [address] [id number] [address] [place] [address], [place] [address] Aug, [facility] [address] [id number] [address] [place] [address], [place] [address] Aug, [facility] [address] [id number] [address] [place] [address], [place] [address] Aug, [facility] [address] [id number] [address] [place] [address], [place] [address] Aug, [facility] [address] [id number] [address] [place] [address], [place] [address] Jul, [facility] [address] [id number] [address] [place] [address], [place] [address] Jun, [facility] [address] [id number] [address] [place] [address], [place] [address] 14 Jun, 2011 [facility] [address] [id number] [address] [place] [address], [place] [address] 13 Jun, 2011 [facility] [address] [id number] [address] [place] [address], [place] [address] Jun, [facility] [address] [id number] [address] [place] [address], [place] [address] Jun, [facility] [address] [id number] [address] [place] [address], [place] [address] May, [facility] [address] [id number] [address] [place] [address], [place] [address] May, [facility] [address] [id number] [address] [place] [address], [place] [address] May, [facility] [address] [id number] [address] [place] [address], [place] [address] May, [facility] [address] [id number] [address] [place] [address], [place] [address] Apr, [facility] [address] [id number] [address] [place] [address], [place] [address] Apr, [facility] [address] [id number] [address] [place] [address], [place] [address] Apr, [facility] [address] [id number] [address] [place] [address], [place] [address] Mar, [facility] [address] [id number] [address] [place] [address], [place] [address] Mar, [facility] [address] [id number] [address] [place] [address], [place] [address] Mar, [facility] [address] [id number] [address] [place] [phone] 13 Feb, [address] [facility] [address] [id number] [address] [place] [id number] [address] Feb, 2011 [facility] [address] [id number] [address] [place] [id number] [address] Feb, [address] [facility] [address] [id number] [address] [place] [phone] Nov, [facility] [address] [id number] [address] [place] [phone] [address], [address] [facility] [address] [id number] [address] [place] [phone] Aug, [facility] [address] [id number] [address] [place] [phone] Jul, [facility] [address] [id number] [address] [place] [phone] May, [facility] [address] [id number] [address] [place] [phone] Apr, [facility] [address] [id number] [address] [place] [phone] Apr, [facility] [address] [id number] [address] [place] [id number] Apr, [facility] [address] [id number] [address] [place] [phone] Apr, [facility] [address] [id number] [address] [place] [id number] Apr, IMMUNIZATIONS No Known Immunizations SOCIAL HISTORY Never Assessed REASON FOR VISIT Home Health PLAN OF CARE VITAL SIGNS MEDICATIONS Unknown [...]
--- OUTSIDE RECORDS SUMMARY | 2019-07-17 11:35 | XMS REPORT | Continuity of Care Document ---
Author Organization Unknown Address Unknown Phone Unavailable Allergies Active Description Code Type Severity Reaction Onset Reported/Identified Relationship to Patient Clinical Status Yes Darvocet-N 100 Drug Allergy N/A N/A 04/17/2010 Yes Neurontin Drug Allergy N/A N/A 07/14/2010 Yes desipramine Drug Allergy N/A N/A 12/04/2010 Yes cefdinir [id number] Drug Allergy Severe ANAPHYLAXIS 06/19/2019 Yes diphenhydramine [id number] D rug Allergy Severe ANAPHYLAXIS 06/19/2019 Yes propoxyphene napsylate [id number] Drug Allergy Severe ANAPHYLAXIS 0 Yes venlafaxine [id number] Drug Aller gy Severe ANAPHYLAXIS 06/19/2019 Yes latex [id number] Drug Allergy Moderate SWELLING IN STILES 06/19/2019 Yes cefdinir [id number] Drug Allergy Unknown N/A 06/19/2019 Yes diphenhydramine [id number] D rug Allergy Unknown N/A 06/19/2019 Yes latex [id number] Drug Allergy Unknown N/A 06/19/2019 Yes Penicillins [id number] Drug Aller gy Unknown N/A 06/19/2019 Yes propoxyphene napsylate [id number] Drug Allergy Unknown N/A 06/19/2019 Medications There is no data. Problems Date Dx Coded Attending Type Code Diagnosis Diagnosed By 04/17/2010 250.00 DEBORA BETES MELLITUS 04/17/2010 272.2 HYPERLIPOPROTEINEMIA MIXED 04/17/2010 401.9 HYPE RTENSION (SYSTEMIC) 04/17/2010 496 Chroni c Obstructive Pulmonary Disease 04/17/2010 SOFIA PARKS DO 250.00 DIABETES MELLITUS 04/17/2010 SOFIA PARKS DO 272.2 HYPERLIPOPROTEINEMIA MIXED 04/17/2010 SOFIA PARKS DO 401.9 HYPERTENSION (SYSTEMIC) 04/17/2010 SOFIA PARKS DO 496 Chronic Obstructive Pulmonary Disease 04/17/2010 CAROL BOLAND, JAKI 250.0 0 DIABETES MELLITUS 04/17/2010 CAROL BOLAND, JAKI 272.2 HYPERLIPOPROTEINEMIA MIXED 04/17/2010 CAROL BOLAND, JAKI 401.9 HYPERTENSION (SYSTEMIC) 04/17/2010 CAROL BOLAND, JAKI 496 Chronic Obstructive Pulmonary Disease 04/17/2010 CAROL BOLAND, JAKI 250.0 0 DIABETES MELLITUS 04/17/2010 CAROL BOLAND, JAKI 272.2 HYPERLIPOPROTEINEMIA MIXED 04/17/2010 CAROL BOLAND, JAKI 401.9 HYPERTENSION (SYSTEMIC) 04/17/2010 CAROL BOLAND, JAKI 496 Chronic Obstructive Pulmonary Disease 04/17/2010 CAROL BOLAND, JAKI 250.0 0 DIABETES MELLITUS 04/17/2010 CAROL BOLAND, JAKI 272.2 HYPERLIPOPROTEINEMIA MIXED 04/17/2010 CAROL BOLAND, JAKI 401.9 HYPERTENSION (SYSTEMIC) 04/17/2010 JAKI MEDINA MD 496 Chronic Obstructive Pulmonary Disease 04/17/2010 CAROL BOLAND, JAKI 250.0 0 DIABETES MELLITUS 04/17/2010 CAROL BOLAND, JAKI 272.2 HYPERLIPOPROTEINEMIA MIXED 04/17/2010 CAROL BOLAND, JAKI 401.9 HYPERTENSION (SYSTEMIC) 04/17/2010 CAROL BOLAND, JAKI 496 Chronic Obstructive Pulmonary Disease 05/14/2010 786.2 cough 05/14/2010 SOFIA PARKS DO 786.2 cough 05/14/2010 CAROL BOLAND, JAKI 786.2 cough 05/14/2010 CAROL BOLAND, JAKI 786.2 cough 05/14/2010 CAROL BOLAND, JAKI 786.2 cough 05/14/2010 CAROL BOLAND, JAKI 786.2 cough 05/16/2010 466.0 ACUT E BRONCHITIS 05/16/2010 SOFIA PARKS DO 466.0 ACUTE BRONCHITIS 05/16/2010 CAROL BOLAND, JAKI 466.0 ACUTE BRONCHITIS 05/16/2010 CAROL BOLAND, JAKI 466.0 ACUTE BRONCHITIS 05/16/2010 CAROL BOLAND, JAKI 466.0 ACUTE BRONCHITIS 05/16/2010 CAROL BOLAND, JAKI 466.0 ACUTE BRONCHITIS 05/20/2010 300.01 ANX IETY DISORDER DUE TO GEN MEDICAL CONDITION, PANIC ATTACKS 05/20/2010 SOFIA PARKS DO 300.01 ANXIETY DISORDER DUE TO GEN MEDICAL CONDITION, PANIC ATTACKS 05/20/2010 JAKI MEDINA MD 300.0 1 ANXIETY DISORDER DUE TO GEN MEDICAL CONDITION, PANIC ATTACKS 05/20/2010 JAKI MEDINA MD 300.0 1 ANXIETY DISORDER DUE TO GEN MEDICAL CONDITION, PANIC ATTACKS 05/20/2010 JAKI MEDINA MD 300.0 1 ANXIETY DISORDER DUE TO GEN MEDICAL CONDITION, PANIC ATTACKS 05/20/2010 JAKI MEDINA MD 300.0 1 ANXIETY DISORDER DUE TO GEN MEDICAL CONDITION, PANIC ATTACKS 06/20/2010 300.02 GEN ERALIZED ANXIETY DISORDER 06/20/2010 300.21 GRIFFITH IC DISORDER WITH AGORAPHOBIA 06/20/2010 307.47 NIG HTMARE DISORDER 06/20/2010 309.81 POS TTRAUMATIC STRESS DISORDER 06/20/2010 311 DEPRES SIVE DISORDER NOS 06/20/2010 SOFIA PARKS DO 300.02 GENERALIZED ANXIETY DISORDER 06/20/2010 SOFIA PARKS DO 300.21 PANIC DISORDER WITH AGORAPHOBIA 06/20/2010 SOFIA PARKS DO 307.47 NIGHTMARE DISORDER 06/20/2010 SOFIA PARKS DO 309.81 POSTTRAUMATIC STRESS DISORDER 06/20/2010 SOFIA PARKS DO 311 DEPRESSIVE DISORDER NOS 06/20/2010 JAKI MEDINA MD 300.0 2 GENERALIZED ANXIETY DISORDER 06/20/2010 JAKI MEDINA MD 300.2 1 PANIC DISORDER WITH AGORAPHOBIA 06/20/2010 JAKI MEDINA MD 307.4 7 NIGHTMARE DISORDER 06/20/2010 JAKI MEDINA MD 309.8 1 POSTTRAUMATIC STRESS DISORDER 06/20/2010 JAKI MEDINA MD 311 DEPRESSIVE DISORDER NOS 06/20/2010 JAKI MEDINA MD 300.0 2 GENERALIZED ANXIETY DISORDER 06/20/2010 JAKI MEDINA MD 300.2 1 PANIC DISORDER WITH AGORAPHOBIA 06/20/2010 JAKI MEDINA MD 307.4 7 NIGHTMARE DISORDER 06/20/2010 JAKI MEDINA MD 309.8 1 POSTTRAUMATIC STRESS DISORDER 06/20/2010 JAKI MEDINA MD 311 DEPRESSIVE DISORDER NOS 06/20/2010 JAKI MEDINA MD 300.0 2 GENERALIZED ANXIETY DISORDER 06/20/2010 JAKI MEDINA MD 300.2 1 PANIC DISORDER WITH AGORAPHOBIA 06/20/2010 JAKI MEDINA MD 307.4 7 NIGHTMARE DISORDER 06/20/2010 JAKI MEDINA MD 309.8 1 POSTTRAUMATIC STRESS DISORDER 06/20/2010 JAKI MEDINA MD 311 DEPRESSIVE DISORDER NOS 06/20/2010 JAKI MEDINA MD 300.0 2 GENERALIZED ANXIETY DISORDER 06/20/2010 JAKI MEDINA MD 300.2 1 PANIC DISORDER WITH AGORAPHOBIA 06/20/2010 JAKI MEDINA MD 307.4 7 NIGHTMARE DISORDER 06/20/2010 JAKI MEDINA MD 309.8 1 POSTTRAUMATIC STRESS DISORDER 06/20/2010 JAKI MEDINA MD 311 DEPRESSIVE DISORDER NOS 07/14/2010 780.4 dizz iness 07/14/2010 SOFIA PARKS DO 780.4 dizziness 07/14/2010 JAKI MEDINA MD 780.4 dizziness 07/14/2010 JAKI MEDINA MD 780.4 dizziness 07/14/2010 JAKI MEDINA MD 780.4 dizziness 07/14/2010 JAKI MEDINA MD 780.4 dizziness 07/21/2010 686.9 DERM ATOLOGY - FUNGAL 07/21/2010 995.20 ADV ERSE EFFECT OF DRUG THERAPY 07/21/2010 SOFIA PARKS DO 686.9 DERMATOLOGY - FUNGAL 07/21/2010 SOFIA PARKS DO K 995.20 ADVERSE EFFECT OF DRUG THERAPY 07/21/2010 JAKI MEDINA MD 686.9 DERMATOLOGY - FUNGAL 07/21/2010 JAKI MEDINA MD 995.2 0 ADVERSE EFFECT OF DRUG THERAPY 07/21/2010 JAKI MEDINA MD 686.9 DERMATOLOGY - FUNGAL 07/21/2010 JAKI MEDINA MD 995.2 0 ADVERSE EFFECT OF DRUG THERAPY 07/21/2010 JAKI MEDINA MD 686.9 DERMATOLOGY - FUNGAL 07/21/2010 JAKI MEDINA MD 995.2 0 ADVERSE EFFECT OF DRUG THERAPY 07/21/2010 JAKI MEDINA MD 686.9 DERMATOLOGY - FUNGAL 07/21/2010 JAKI MEDINA MD 995.2 0 ADVERSE EFFECT OF DRUG THERAPY 08/19/2010 564.1 IRRI TABLE BOWEL SYNDROME 08/19/2010 SOFIA PARKS DO K 564.1 IRRITABLE BOWEL SYNDROME 08/19/2010 JAKI MEDINA MD 564.1 IRRITABLE BOWEL SYNDROME 08/19/2010 JAKI MEDINA MD 564.1 IRRITABLE BOWEL SYNDROME 08/19/2010 JAKI MEDINA MD 564.1 IRRITABLE BOWEL SYNDROME 08/19/2010 JAKI MEDINA MD 564.1 IRRITABLE BOWEL SYNDROME 09/04/2010 995.27 ALL ERGIC DRUG REACTION 09/04/2010 SOFIA PARKS DO 995.27 ALLERGIC DRUG REACTION 09/04/2010 JAKI MEDINA MD 995.2 7 ALLERGIC DRUG REACTION 09/04/2010 JAKI MEDINA MD 995.2 7 ALLERGIC DRUG REACTION 09/04/2010 JAKI MEDINA MD 995.2 7 ALLERGIC DRUG REACTION 09/04/2010 JAKI MEDINA MD 995.2 7 ALLERGIC DRUG REACTION 09/22/2010 789.00 abd ominal pain 09/22/2010 SOFIA PARKS DO 789.00 abdominal pain 09/22/2010 JAKI MEDINA MD 789.0 0 abdominal pain 09/22/2010 JAKI MEDINA MD 789.0 0 abdominal pain 09/22/2010 JAKI MEDINA MD 789.0 0 abdominal pain 09/22/2010 JAKI MEDINA MD 789.0 0 abdominal pain 01/07/2011 300.00 AN ANXIETY UNSPEC 01/07/2011 SOFIA PARKS DO 300.00 AN ANXIETY UNSPEC 01/07/2011 JAKI MEDINA MD 300.0 0 AN ANXIETY UNSPEC 01/07/2011 JAKI MEDINA MD 300.0 0 AN ANXIETY UNSPEC 01/07/2011 JAKI MEDINA MD 300.0 0 AN ANXIETY UNSPEC 01/07/2011 JAKI MEDINA MD 300.0 0 AN ANXIETY UNSPEC 02/19/2011 716.90 ART HRITIS 02/19/2011 V04.81 Vac cines Prophylactic Need Against Influenza 02/19/2011 SOFIA PARKS DO 716.90 ARTHRITIS 02/19/2011 SOFIA PARKS DO V04.81 Vaccines Prophylactic Need Against Influenza 02/19/2011 JAKI MEDINA MD 716.9 0 ARTHRITIS 02/19/2011 JAKI MEDINA MD V04.8 1 Vaccines Prophylactic Need Against Influenza 02/19/2011 JAKI MEDINA MD 716.9 0 ARTHRITIS 02/19/2011 JAKI MEDINA MD V04.8 1 Vaccines Prophylactic Need Against Influenza 02/19/2011 JAKI MEDINA MD 716.9 0 ARTHRITIS 02/19/2011 JAKI MEDINA MD V04.8 1 Vaccines Prophylactic Need Against Influenza 02/19/2011 JAKI MEDINA MD 716.9 0 ARTHRITIS 02/19/2011 JAKI MEDINA MD V04.8 1 Vaccines Prophylactic Need Against Influenza 04/13/2011 300.21 AN PANIC DIS W AGORA 04/13/2011 307.47 SI DYSSOMNIA NOS 04/13/2011 SOFIA PARKS DO K 300.21 AN PANIC DIS W AGORA 04/13/2011 SOFIA PARKS DO K 307.47 SI DYSSOMNIA NOS 04/13/2011 JAKI MEDINA MD 300.2 1 AN PANIC DIS W AGORA 04/13/2011 JAKI MEDINA MD 307.4 7 SI DYSSOMNIA NOS 04/13/2011 JAKI MEDINA MD 300.2 1 AN PANIC DIS W AGORA 04/13/2011 JAKI MEDINA MD 307.4 7 SI DYSSOMNIA NOS 04/13/2011 JAKI MEDINA MD 300.2 1 AN PANIC DIS W AGORA 04/13/2011 JAKI MEDINA MD 307.4 7 SI DYSSOMNIA NOS 04/13/2011 JAKI MEDINA MD 300.2 1 AN PANIC DIS W AGORA 04/13/2011 JAKI MEDINA MD 307.4 7 SI DYSSOMNIA NOS 05/22/2011 496 CHRONI C AIRWAY OBSTRUCTION NOT ELSEWHERE CLASSIFIED 05/22/2011 SOFIA PARKS DO 496 CHRONIC AIRWAY OBSTRUCTION NOT ELSEWHERE CLASSIFIED 05/22/2011 JAKI MEDINA MD 496 CHRONIC AIRWAY OBSTRUCTION NOT ELSEWHERE CLASSIFIED 05/22/2011 JAKI MEDINA MD 496 CHRONIC AIRWAY OBSTRUCTION NOT ELSEWHERE CLASSIFIED 05/22/2011 JAKI MEDINA MD6 CHRONIC AIRWAY OBSTRUCTION NOT ELSEWHERE CLASSIFIED 05/22/2011 JAKI MEDINA MD6 CHRONIC AIRWAY OBSTRUCTION NOT ELSEWHERE CLASSIFIED 06/22/2011 300.02 AN GEN ANXIETY 06/22/2011 SOFIA PARKS DO 300.02 AN GEN ANXIETY 06/22/2011 JAKI MEDINA MD 300.0 2 AN GEN ANXIETY 06/22/2011 JAKI MEDINA MD 300.0 2 AN GEN ANXIETY 06/22/2011 JAKI MEDINA MD 300.0 2 AN GEN ANXIETY 06/22/2011 JAKI MEDINA MD 300.0 2 AN GEN ANXIETY 09/17/2011 Ot 780.79 OTH MALAISE FATIGUE 09/17/2011 Ot 787.03 VOM ITING ALONE 09/17/2011 Ot 789.00 ABD OMINAL PAIN, UNSPECIFIED SITE 07/07/2012 Ot 311 DEPRES SIVE DISORDER NEC 07/07/2012 Ot 401.9 HYPE RTENSION NOS 07/07/2012 Ot 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 07/07/2012 Ot 530.81 ESO PHAGEAL REFLUX 07/07/2012 Ot 729.1 MYAL CHERRY AND MYOSITIS NOS 07/07/2012 Ot V58.69 OTH MED,LT,CURRENT USE 07/09/2012 Ot 692.9 DERM ATITIS NOS 01/13/2013 SOFIA PARKS DO 305.1 TOBACCO ABUSE 01/13/2013 SOFIA PARKS DO 491.21 BRONCHITIS AECB 01/13/2013 JAKI MEDINA MD 305.1 TOBACCO ABUSE 01/13/2013 JAKI MEDINA MD 491.2 1 BRONCHITIS AECB 01/13/2013 JAKI MEDINA MD 305.1 TOBACCO ABUSE 01/13/2013 JAKI MEDINA MD 491.2 1 BRONCHITIS AECB 01/13/2013 JAKI MEDINA MD 305.1 TOBACCO ABUSE 01/13/2013 JAKI MEDINA MD 491.2 1 BRONCHITIS AECB 01/13/2013 JAKI MEDINA MD 305.1 TOBACCO ABUSE 01/13/2013 JAKI MEDINA MD 491.2 1 BRONCHITIS AECB 03/09/2013 JAKI MEDINA MD 564.0 0 UNSPECIFIED CONSTIPATION 03/09/2013 JAKI MEDINA MD 729.1 MYALGIA AND MYOSITIS UNSPECIFIED 03/09/2013 JAKI MEDINA MD 564.0 0 UNSPECIFIED CONSTIPATION 03/09/2013 JAKI MEDINA MD9.1 MYALGIA AND MYOSITIS UNSPECIFIED 03/09/2013 JAKI MEDINA MD 564.0 0 UNSPECIFIED CONSTIPATION 03/09/2013 JAKI MEDINA MD 729.1 MYALGIA AND MYOSITIS UNSPECIFIED 03/09/2013 JAKI MEDINA MD 564.0 0 UNSPECIFIED CONSTIPATION 03/09/2013 JAKI MEDINA MD9.1 MYALGIA AND MYOSITIS UNSPECIFIED 03/23/2014 Ot V68.01 03/23/2014 Ot V82.89 03/23/2014 Ot 611.72 03/23/2014 Ot 610.3 03/23/2014 Ot 611.72 03/23/2014 Ot 793.82 03/23/2014 Ot V76.12 03/23/2014 Ot 793.81 03/23/2014 Ot 530.81 03/23/2014 Ot V72.63 03/23/2014 Ot V74.8 03/23/2014 PARVIN BOLAND, RICK Lama Ot 530.3 03/23/2014 PARVIN BOLAND, RICK Lama Ot V72.84 03/26/2014 TUCKER LESLIE MD Ot 722. 52 LUMB/LUMBOSAC DISC DEGEN 03/26/2014 TUCKER LESLIE MD Ot 722. 83 POSTLAMINECT SYND-LUMBAR 03/26/2014 TUCKER LESLIE MD, Ot 729. 1 MYALGIA AND MYOSITIS NOS 03/26/2014 ANUJ BOLAND, TUCKER Faye Ot V58. 69 OT MED,LT,CURRENT USE 08/15/2014 Ot V68.01 08/15/2014 Ot V82.89 08/15/2014 Ot 611.72 08/15/2014 Ot 610.3 08/15/2014 Ot 611.72 08/15/2014 Ot 793.82 08/15/2014 Ot V76.12 08/15/2014 Ot 793.81 08/15/2014 Ot 530.81 08/15/2014 Ot V72.63 08/15/2014 Ot V74.8 08/15/2014 PARVIN BOLAND, RICK Lama Ot 530.3 08/15/2014 RICK MELENDREZ MD Ot V72.84 08/17/2014 Ot V68.01 08/17/2014 Ot V82.89 08/17/2014 Ot 611.72 08/17/2014 Ot 610.3 08/17/2014 Ot 611.72 08/17/2014 Ot 793.82 08/17/2014 Ot V76.12 08/17/2014 Ot 793.81 08/17/2014 Ot 530.81 08/17/2014 Ot V72.63 08/17/2014 Ot V74.8 08/17/2014 PARVIN BOLAND, RICK Kelby Ot 530.3 08/17/2014 PARVIN BOLAND, RICK Lama Ot V72.84 09/11/2014 DEJUAN BOLAND, WAYLON Faye Ot 724.4 10/17/2014 DEJUAN BOLAND, WAYLON Faye Ot 724.4 12/18/2014 Ot 611.72 12/18/2014 Ot 610.3 12/18/2014 Ot 611.72 12/18/2014 Ot 793.82 12/18/2014 Ot V76.12 12/18/2014 Ot 793.81 12/18/2014 Ot 530.81 12/18/2014 Ot V72.63 12/18/2014 Ot V74.8 12/18/2014 PARVIN BOLAND, RICK Lama Ot 530.3 12/18/2014 PARVIN BOLAND, RICK Kelby Ot V72.84 12/18/2014 DEJUAN BOLAND, WAYLON Faye Ot 724.4 12/18/2014 JUSTIN LEVINE MD Ot 300.00 ANXIETY STATE NOS 12/18/2014 JUSTIN [...] Ot R13.10 DYSPHAGIA, UNSPECIFIED 06/28/2015 JOVANY LOU MD, Ot R20.2 PARESTHESIA OF SKIN 06/28/2015 JOVANY LOU MD, Ot T43.215A ADVRS EFFECT OF SLCTV SEROTON/NOREPINEPH 06/28/2015 JOVANY LOU MD Ot Z79.4 DOUGHNUT MAKER (CURRENT) USE OF INSULIN 06/28/2015 Ot 611.72 06/28/2015 Ot 610.3 06/28/2015 Ot 611.72 06/28/2015 Ot 793.82 06/28/2015 Ot V76.12 06/28/2015 Ot 793.81 06/28/2015 Ot 530.81 06/28/2015 Ot V72.63 06/28/2015 Ot V74.8 06/28/2015 PARVIN BOLAND, RICK Lama Ot 530.3 06/28/2015 PARVIN BOLAND, RICK Lama Ot V72.84 06/28/2015 DEJUAN BOLAND, WAYLON J Ot 724.4 10/04/2015 Ot 611.72 LUM P OR MASS IN BREAST 10/04/2015 Ot 610.3 FIBR OSCLEROSIS OF BREAST 10/04/2015 Ot 611.72 LUM P OR MASS IN BREAST 10/04/2015 Ot 793.82 INC ONCLUSIVE MAMMOGRAM 10/04/2015 Ot V76.12 OT SCREEN MAMMO- MALIGN NEOPLASM OF ALBERTO 10/04/2015 Ot 793.81 MAHIN MOGRAPHIC MICROCLACIFICATION 10/04/2015 Ot 530.81 ESO PHAGEAL REFLUX 10/04/2015 Ot V72.63 PRE -PROCEDURAL LABORATORY EXAMINATION 10/04/2015 Ot V74.8 SCRE EN-BACTERIAL DIS NEC 10/04/2015 PARVIN BOLAND, RICK Lama Ot 530.3 ESOPHAGEAL STRICTURE 10/04/2015 PARVIN BOLAND, RICK Lama Ot V72.84 EXAM PRE-OPERATIVE NOS 10/04/2015 DEJUAN BOLAND, WAYLON J Ot 724.4 LUMBOSACRAL NEURITIS NOS 10/29/2015 Ot 610.3 FIBR OSCLEROSIS OF BREAST 10/29/2015 Ot 611.72 LUM P OR MASS IN BREAST 10/29/2015 Ot 793.82 INC ONCLUSIVE MAMMOGRAM 10/29/2015 Ot V76.12 OTH SCREEN MAMMO- MALIGN NEOPLASM OF ALBERTO 10/29/2015 Ot 793.81 MAHIN MOGRAPHIC MICROCLACIFICATION 10/29/2015 Ot 530.81 ESO PHAGEAL REFLUX 10/29/2015 Ot V72.63 PRE -PROCEDURAL LABORATORY EXAMINATION 10/29/2015 Ot V74.8 SCRE EN-BACTERIAL DIS NEC 10/29/2015 RICK MELENDREZ MD Ot 530.3 ESOPHAGEAL STRICTURE 10/29/2015 PARVIN BOLAND, RICK Lama Ot V72.84 EXAM PRE-OPERATIVE NOS 10/29/2015 DEJUAN BOLAND, WAYLON Faye Ot 724.4 LUMBOSACRAL NEURITIS NOS 10/31/2015 ARTEAGAVALENTIN CHINO DO D Ot Z01.818 ENCOUNTER FOR OTHER PREPROCEDURAL EXAMIN 11/01/2015 ARTEAGA DO VALENTIN D Ot Z01.818 ENCOUNTER FOR OTHER PREPROCEDURAL EXAMIN 11/06/2015 ARTEAGAMATTI COURTNEY VALENTIN D Ot E11. 9 TYPE 2 DIABETES MELLITUS WITHOUT COMPLIC 11/06/2015 ARTEAGA DO VALENTIN D Ot K29. 70 GASTRITIS, UNSPECIFIED, WITHOUT BLEEDING 11/06/2015 ARTEAGA DO VALENTIN D Ot K59. 00 CONSTIPATION, UNSPECIFIED 11/06/2015 ARTEAGA DO VALENTIN D Ot R19. 7 DIARRHEA, UNSPECIFIED 11/12/2015 ARTEAGA DO VALENTIN D Ot E11. 9 TYPE 2 DIABETES MELLITUS WITHOUT COMPLIC 11/12/2015 ARTEAGA DO VALENTIN D Ot K29. 70 GASTRITIS, UNSPECIFIED, WITHOUT BLEEDING 11/12/2015 ARTEAGA DO, VALENTIN D Ot K59. 00 CONSTIPATION, UNSPECIFIED 11/12/2015 ARTEAGA DO, VALENTIN D Ot R19. 7 DIARRHEA, UNSPECIFIED 11/14/2015 ARTEAGA DO, VALENTIN D Ot E11. 9 TYPE 2 DIABETES MELLITUS WITHOUT COMPLIC 11/14/2015 ARTEAGA DO, VALENTIN D Ot K29. 70 GASTRITIS, UNSPECIFIED, WITHOUT BLEEDING 11/14/2015 ARTEAGA DO VALENTIN D Ot K59. 00 CONSTIPATION, UNSPECIFIED 11/14/2015 ARTEAGA DO VALENTIN D Ot R19. 7 DIARRHEA, UNSPECIFIED 11/21/2015 Ot 610.3 FIBR OSCLEROSIS OF BREAST 11/21/2015 Ot 611.72 LUM P OR MASS IN BREAST 11/21/2015 Ot 793.82 INC ONCLUSIVE MAMMOGRAM 11/21/2015 Ot V76.12 OT SCREEN MAMMO- MALIGN NEOPLASM OF ALBERTO 11/21/2015 Ot 793.81 MAHIN MOGRAPHIC MICROCLACIFICATION 11/21/2015 Ot 530.81 ESO PHAGEAL REFLUX 11/21/2015 Ot V72.63 PRE -PROCEDURAL LABORATORY EXAMINATION 11/21/2015 Ot V74.8 SCRE EN-BACTERIAL DIS NEC 11/21/2015 PARVIN BOLAND, RICK Lama Ot 530.3 ESOPHAGEAL STRICTURE 11/21/2015 PARVIN BOLAND, RICK Lama Ot V72.84 EXAM PRE-OPERATIVE NOS 11/21/2015 DEJUAN BOLAND, WAYLON Faye Ot 724.4 LUMBOSACRAL NEURITIS NOS 11/21/2015 ARTEAGA DO, VALENTIN D Ot E11. 9 TYPE 2 DIABETES MELLITUS WITHOUT COMPLIC 11/21/2015 ARTEAGA DO, VALENTIN D Ot K29. 70 GASTRITIS, UNSPECIFIED, WITHOUT BLEEDING 11/21/2015 ARTEAGA DO, VALENTIN D Ot K59. 00 CONSTIPATION, UNSPECIFIED 11/21/2015 ARTEAGA DO, VALENTIN D Ot R19. 7 DIARRHEA, UNSPECIFIED 11/21/2015 ARTEAGA DO, VALENTIN D Ot E11. 9 TYPE 2 DIABETES MELLITUS WITHOUT COMPLIC 11/21/2015 ARTEAGA DO, VALENTIN D Ot K29. 70 GASTRITIS, UNSPECIFIED, WITHOUT BLEEDING 11/21/2015 ARTEAGA DO, VALENTIN D Ot K59. 00 CONSTIPATION, UNSPECIFIED 11/21/2015 ARTEAGA DO, VALENTIN D Ot R19. 7 DIARRHEA, UNSPECIFIED 11/22/2015 ARTEAGA DO, VALENTIN D Ot E11. 9 TYPE 2 DIABETES MELLITUS WITHOUT COMPLIC 11/22/2015 ARTEAGA DO, VALENTIN D Ot K29. 70 GASTRITIS, UNSPECIFIED, WITHOUT BLEEDING 11/22/2015 ARTEAGA DO, VALENTIN D Ot K59. 00 CONSTIPATION, UNSPECIFIED 11/22/2015 ARTEAGA DO, VALENTIN D Ot R19. 7 DIARRHEA, UNSPECIFIED 12/06/2015 DASHA BOLAND, JOVANY Bailon Ot E11.9 TYPE 2 DIABETES MELLITUS WITHOUT COMPLIC 12/06/2015 JOVANY LOU MD Ot F17.210 NICOTINE DEPENDENCE, CIGARETTES, UNCOMPL 12/06/2015 JOVANY LOU MD Ot R07.89 OTHER CHEST PAIN 12/06/2015 JOVANY LOU MD Ot R13.10 DYSPHAGIA, UNSPECIFIED 12/06/2015 JOVANY LOU MD, Ot R20.2 PARESTHESIA OF SKIN 12/06/2015 JOVANY LOU MD, Ot T43.215A ADVRS EFFECT OF SLCTV SEROTON/NOREPINEPH 12/06/2015 JOVANY LOU MD T Ot Z79.4 DOUGHNUT MAKER (CURRENT) USE OF INSULIN 03/06/2016 Ot 610.3 FIBR OSCLEROSIS OF BREAST 03/06/2016 Ot 611.72 LUM P OR MASS IN BREAST 03/06/2016 Ot 793.82 INC ONCLUSIVE MAMMOGRAM 03/06/2016 Ot V76.12 OTH SCREEN MAMMO- MALIGN NEOPLASM OF ALBERTO 03/06/2016 Ot 793.81 MAHIN MOGRAPHIC MICROCLACIFICATION 03/06/2016 Ot 530.81 ESO PHAGEAL REFLUX 03/06/2016 Ot V72.63 PRE -PROCEDURAL LABORATORY EXAMINATION 03/06/2016 Ot V74.8 SCRE EN-BACTERIAL DIS NEC 03/06/2016 PARVIN BOLAND, RICK Lama Ot 530.3 ESOPHAGEAL STRICTURE 03/06/2016 PARVIN BOLAND, RICK Lama Ot V72.84 EXAM PRE-OPERATIVE NOS 03/06/2016 DEJUAN BOLAND, WAYLON Faye Ot 724.4 LUMBOSACRAL NEURITIS NOS 03/06/2016 VALENTIN ARTEAGA DO Ot E11. 9 TYPE 2 DIABETES MELLITUS WITHOUT COMPLIC 03/06/2016 VALENTIN ARTEAGA DO Ot K29. 70 GASTRITIS, UNSPECIFIED, WITHOUT BLEEDING 03/06/2016 VALENTIN ARTEAGA DO Ot K59. 00 CONSTIPATION, UNSPECIFIED 03/06/2016 VALENTIN ARTEAGA DO Ot R19. 7 DIARRHEA, UNSPECIFIED 03/06/2016 CINTHIA CARABALLO APRN Ot E11 .9 TYPE 2 DIABETES MELLITUS WITHOUT COMPLIC 03/06/2016 CINTHIA CARABALLO APRN Ot I10 ESSENTIAL (PRIMARY) HYPERTENSION 03/06/2016 CINTHIA CARABALLO APRN Ot J44 .9 CHRONIC OBSTRUCTIVE PULMONARY DISEASE, U 03/06/2016 CINTHIA [...] ACTIVITY, SLEEPING 03/06/2016 CINTHIA CARABALLO APRN Ot Y99 .8 OTHER EXTERNAL CAUSE STATUS 03/06/2016 CINTHIA CARABALLO APRN Ot Z79 .4 FDC (CURRENT) USE OF INSULIN 03/06/2016 CINTHIA CARABALLO APRN Ot Z79.84 DOUGHNUT MAKER (CURRENT) USE OF ORAL HYPOGLYC 03/06/2016 CINTHIA CARABALLO APRN Ot Z79.899 OTHER DOUGHNUT MAKER (CURRENT) DRUG THERAPY 03/06/2016 CINTHIA CARABALLO APRN Ot Z98 .1 ARTHRODESIS STATUS 03/06/2016 Ot 610.3 FIBR OSCLEROSIS OF BREAST 03/06/2016 Ot 611.72 LUM P OR MASS IN BREAST 03/06/2016 Ot 793.82 INC ONCLUSIVE MAMMOGRAM 03/06/2016 Ot V76.12 OTH SCREEN MAMMO- MALIGN NEOPLASM OF ALBERTO 03/06/2016 Ot 793.81 MAHIN MOGRAPHIC MICROCLACIFICATION 03/06/2016 Ot 530.81 ESO PHAGEAL REFLUX 03/06/2016 Ot V72.63 PRE -PROCEDURAL LABORATORY EXAMINATION 03/06/2016 Ot V74.8 SCRE EN-BACTERIAL DIS NEC 03/06/2016 PARVIN BOLAND, RICK Lama Ot 530.3 ESOPHAGEAL STRICTURE 03/06/2016 PARVIN BOLAND, RICK Lama Ot V72.84 EXAM PRE-OPERATIVE NOS 03/06/2016 DEJUAN BOLAND, WAYLON Faye Ot 724.4 LUMBOSACRAL NEURITIS NOS 03/06/2016 VALENTIN ARTEAGA DO Ot E11. 9 TYPE 2 DIABETES MELLITUS WITHOUT COMPLIC 03/06/2016 VALENTIN ARTEAGA DO Ot K29. 70 GASTRITIS, UNSPECIFIED, WITHOUT BLEEDING 03/06/2016 VALENTIN ARTEAGA DO Ot K59. 00 CONSTIPATION, UNSPECIFIED 03/06/2016 VALENTIN ARTEAGA DO Ot R19. 7 DIARRHEA, UNSPECIFIED 03/09/2016 CINTHIA CARABALLO APRN Ot E11 .9 TYPE 2 DIABETES MELLITUS WITHOUT COMPLIC 03/09/2016 CINTHIA CARABALLO APRN Ot I10 ESSENTIAL (PRIMARY) HYPERTENSION 03/09/2016 CINTHIA CARABALLO APRN Ot J44 .9 CHRONIC OBSTRUCTIVE PULMONARY DISEASE, U 03/09/2016 CINTHIA [...] ACTIVITY, SLEEPING 03/09/2016 CINTHIA CARABALLO APRN Ot Y99 .8 OTHER EXTERNAL CAUSE STATUS 03/09/2016 CINTHIA CARABALLO APRN Ot Z79 .4 DOUGHNUT MAKER (CURRENT) USE OF INSULIN 03/09/2016 CINTHIA CARABALLO APRN Ot Z79.84 FDC (CURRENT) USE OF ORAL HYPOGLYC 03/09/2016 CINTHIA CARABALLO APRN Ot Z79.899 OTHER DOUGHNUT MAKER (CURRENT) DRUG THERAPY 03/09/2016 CINTHIA CARABALLO APRN Ot Z98 .1 ARTHRODESIS STATUS 03/13/2017 EDE HINOJOSA MD Ot E11 .9 TYPE 2 DIABETES MELLITUS WITHOUT COMPLIC 03/13/2017 EDE HINOJOSA MD Ot E78 .5 HYPERLIPIDEMIA, UNSPECIFIED 03/13/2017 EDE HINOJOSA MD Ot F17.210 NICOTINE DEPENDENCE, CIGARETTES, UNCOMPL 03/13/2017 EDE HINOJOSA MD Ot I10 ESSENTIAL (PRIMARY) HYPERTENSION 03/13/2017 EDE HINOJOSA MD Ot I69.951 HEMIPLGA FOL UNSP CEREBVASC DISEASE AFF 03/13/2017 EDE HINOJOSA MD, Ot 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 03/13/2017 EDE HINOJOSA MD, Ot J44 .9 CHRONIC OBSTRUCTIVE PULMONARY DISEASE, U 03/13/2017 EDE HINOJOSA MD Ot K21 .9 GASTRO-ESOPHAGEAL REFLUX DISEASE WITHOUT 03/13/2017 EDE HINOJOSA MD Ot R07.89 OTHER CHEST PAIN 03/13/2017 EDE HINOJOSA MD, Ot Z79 .4 FDC (CURRENT) USE OF INSULIN 03/13/2017 EDE HINOJOSA MD, Ot Z79.899 OTHER DOUGHNUT MAKER (CURRENT) DRUG THERAPY 03/13/2017 EDE HINOJOSA MD Ot E11 .9 TYPE 2 DIABETES MELLITUS WITHOUT COMPLIC 03/13/2017 EDE HINOJOSA MD, Ot E78 .5 HYPERLIPIDEMIA, UNSPECIFIED 03/13/2017 EDE HINOJOSA MD, Ot F17.210 NICOTINE DEPENDENCE, CIGARETTES, UNCOMPL 03/13/2017 EDE HINOJOSA MD, Ot I10 ESSENTIAL (PRIMARY) HYPERTENSION 03/13/2017 EDE HINOJOSA MD, Ot I69.951 HEMIPLGA FOL UNSP CEREBVASC DISEASE AFF 03/13/2017 EDE HINOJOSA MD, Ot 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 03/13/2017 EDE HINOJOSA MD, Ot J44 .9 CHRONIC OBSTRUCTIVE PULMONARY DISEASE, U 03/13/2017 EDE HINOJOSA MD, Ot K21 .9 GASTRO-ESOPHAGEAL REFLUX DISEASE WITHOUT 03/13/2017 EDE HINOJOSA MD, Ot R07.89 OTHER CHEST PAIN 03/13/2017 EDE HINOJOSA MD, Ot Z79 .4 DOUGHNUT MAKER (CURRENT) USE OF INSULIN 03/13/2017 EDE HINOJOSA MD, Ot Z79.899 OTHER FDC (CURRENT) DRUG THERAPY 04/12/2017 WHIT GANDHI Ot G47.33 OBSTRUCTIVE SLEEP APNEA (ADULT) (PEDIATR 04/16/2017 WHIT GANDHI Ot G47.33 OBSTRUCTIVE SLEEP APNEA (ADULT) (PEDIATR 04/16/2017 WHIT GANDHI Ot G47.33 OBSTRUCTIVE SLEEP APNEA (ADULT) (PEDIATR 04/22/2017 Ot 530.81 ESO PHAGEAL REFLUX 04/22/2017 Ot V72.63 PRE -PROCEDURAL LABORATORY EXAMINATION 04/22/2017 Ot V74.8 SCRE EN-BACTERIAL DIS NEC 04/22/2017 PARVIN BOLAND, RICK Lama Ot 530.3 ESOPHAGEAL STRICTURE 04/22/2017 PARVIN BOLAND, RICK Lama Ot V72.84 EXAM PRE-OPERATIVE NOS 04/22/2017 WAYLON ZAIDI MD Ot 724.4 LUMBOSACRAL NEURITIS NOS 04/22/2017 VALENTIN ARTEAGA DO Ot E11. 9 TYPE 2 DIABETES MELLITUS WITHOUT COMPLIC 04/22/2017 VALENTIN ARTEAGA DO Ot K29. 70 GASTRITIS, UNSPECIFIED, WITHOUT BLEEDING 04/22/2017 VALENTIN ARTEAGA DO Ot K59. 00 CONSTIPATION, UNSPECIFIED 04/22/2017 VALENTIN ARTEAGA DO Ot R19. 7 DIARRHEA, UNSPECIFIED 04/28/2017 LEO WALTON MD Ot E11. 9 TYPE 2 DIABETES MELLITUS WITHOUT COMPLIC 04/28/2017 LEO WALTON MD Ot F43. 10 POST-TRAUMATIC STRESS DISORDER, UNSPECIF 04/28/2017 LEO WALTON MD Ot I10 ESSENTIAL (PRIMARY) HYPERTENSION 04/28/2017 LEO WALTON MD Ot J44. 9 CHRONIC OBSTRUCTIVE PULMONARY DISEASE, U 04/28/2017 LEO WALTON MD Ot R07. 9 CHEST PAIN, UNSPECIFIED 05/14/2017 JOSÉ OC[employer] RE[employer]ION[employer] Ot G47.36 SLEEP RELATED HYPOVENTILATION IN CONDITI 05/15/2017 JOSÉ OCASIO [employer] RECEPTIONIST Ot G47.36 SLEEP RELATED HYPOVENTILATION IN CONDITI 05/16/2017 JOSÉ OCASIO [employer] RE[employer]IONIST Ot G47.36 SLEEP RELATED HYPOVENTILATION IN CONDITI 05/16/2017 [employer] Ot G47.10 HYPERSOMNIA, UNSPECIFIED 05/16/2017 [employer] Ot G47.36 SLEEP RELATED HYPOVENTILATION IN CONDITI 05/19/2017 LEO WALTON MD Ot E11. 9 TYPE 2 DIABETES MELLITUS WITHOUT COMPLIC 05/19/2017 LEO WALTON MD Ot F43. 10 POST-TRAUMATIC STRESS DISORDER, UNSPECIF 05/19/2017 LEO WALTON MD Ot I10 ESSENTIAL (PRIMARY) HYPERTENSION 05/19/2017 LEO WALTON MD Ot J44. 9 CHRONIC OBSTRUCTIVE PULMONARY DISEASE, U 05/19/2017 LEO WALTON MD Ot R07. 9 CHEST PAIN, UNSPECIFIED 05/21/2017 [employer] RE[employer]IONIST Ot G47.10 HYPERSOMNIA, UNSPECIFIED 05/21/2017 [employer] Ot G47.36 SLEEP RELATED HYPOVENTILATION IN CONDITI 05/25/2017 LEO WALTON MD Ot E11. 9 TYPE 2 DIABETES MELLITUS WITHOUT COMPLIC 05/25/2017 LEO WALTON MD Ot F43. 10 POST-TRAUMATIC STRESS DISORDER, UNSPECIF 05/25/2017 LEO WALTON MD Ot I10 ESSENTIAL (PRIMARY) HYPERTENSION 05/25/2017 LEO WALTON MD Ot J44. 9 CHRONIC OBSTRUCTIVE PULMONARY DISEASE, U 05/25/2017 LEO WALTON MD Ot R07. 9 CHEST PAIN, UNSPECIFIED 06/21/2017 LEO WALTON MD Ot E11. 9 TYPE 2 DIABETES MELLITUS WITHOUT COMPLIC 06/21/2017 LEO WALTON MD Ot F43. 10 POST-TRAUMATIC STRESS DISORDER, UNSPECIF 06/21/2017 LEO WALTON MD Ot I10 ESSENTIAL (PRIMARY) HYPERTENSION 06/21/2017 LEO WALTON MD, Ot J44. 9 CHRONIC OBSTRUCTIVE PULMONARY DISEASE, U 06/21/2017 LEO WALTON MD Ot R07. 9 CHEST PAIN, UNSPECIFIED 07/16/2017 WHIT GANDHI Ot Z12.31 ENCNTR SCREEN MAMMOGRAM FOR MALIGNANT NE 07/20/2017 JOVANY LOU MD Ot E11.40 TYPE 2 DIABETES MELLITUS WITH DIABETIC N 07/20/2017 JOVANY LOU MD Ot E78.00 PURE HYPERCHOLESTEROLEMIA, UNSPECIFIED 07/20/2017 JOVANY LOU MD Ot E87.5 HYPERKALEMIA 07/20/2017 JOVANY LOU MD Ot F17.210 NICOTINE DEPENDENCE, CIGARETTES, UNCOMPL 07/20/2017 JOVANY LOU MD Ot F31.9 BIPOLAR DISORDER, UNSPECIFIED 07/20/2017 JOVANY LOU MD Ot F41.9 ANXIETY DISORDER, UNSPECIFIED 07/20/2017 JOVANY LOU MD Ot F90.9 ATTENTION-DEFICIT HYPERACTIVITY DISORDER 07/20/2017 JOVANY LOU MD Ot I10 ESSENTIAL (PRIMARY) HYPERTENSION 07/20/2017 JOVANY LOU MD, Ot J44.9 CHRONIC OBSTRUCTIVE PULMONARY DISEASE, U 07/20/2017 JOVANY LOU MD Ot K21.9 GASTRO-ESOPHAGEAL REFLUX DISEASE WITHOUT 07/20/2017 JOVANY LOU MD Ot K59.00 CONSTIPATION, UNSPECIFIED 07/20/2017 JOVANY LOU MD Ot M06.9 RHEUMATOID ARTHRITIS, UNSPECIFIED 07/20/2017 JOVANY LOU MD Ot R10.12 LEFT UPPER QUADRANT PAIN 07/20/2017 JOVANY LOU MD Ot Z79.4 DOUGHNUT MAKER (CURRENT) USE OF INSULIN 07/20/2017 JOVANY LOU MD Ot Z79.82 FDC (CURRENT) USE OF ASPIRIN 07/20/2017 JOVANY LOU MD Ot Z87.59 PERSONAL HISTORY OF COMP OF PREG, CHLDBR 07/20/2017 JOVANY LOU MD, Ot Z88.0 ALLERGY STATUS TO PENICILLIN 07/20/2017 JOVANY LOU MD Ot Z88.1 ALLERGY STATUS TO OTHER ANTIBIOTIC AGENT 07/20/2017 JOVANY LOU MD Ot Z90.710 ACQUIRED ABSENCE OF BOTH CERVIX AND UTER 07/20/2017 JOVANY LOU MD, Ot Z91.040 LATEX ALLERGY STATUS 07/22/2017 JOVANY LOU MD Ot E11.40 TYPE 2 DIABETES MELLITUS WITH DIABETIC N 07/22/2017 JOVANY LOU MD Ot E78.00 PURE HYPERCHOLESTEROLEMIA, UNSPECIFIED 07/22/2017 JOVANY LOU MD Ot E87.5 HYPERKALEMIA 07/22/2017 JOVANY LOU MD Ot F17.210 NICOTINE DEPENDENCE, CIGARETTES, UNCOMPL 07/22/2017 JOVANY LOU MD, Ot F31.9 BIPOLAR DISORDER, UNSPECIFIED 07/22/2017 JOVANY LOU MD, Ot F41.9 ANXIETY DISORDER, UNSPECIFIED 07/22/2017 JOVANY [...] M06.9 RHEUMATOID ARTHRITIS, UNSPECIFIED 07/22/2017 JOVANY LOU MD, Ot R10.12 LEFT UPPER QUADRANT PAIN 07/22/2017 JOVANY LOU MD, Ot Z79.4 DOUGHNUT MAKER (CURRENT) USE OF INSULIN 07/22/2017 JOVANY LOU MD, Ot Z79.82 DOUGHNUT MAKER (CURRENT) USE OF ASPIRIN 07/22/2017 JOVANY LOU MD, Ot Z87.59 PERSONAL HISTORY OF COMP OF PREG, CHLDBR 07/22/2017 JOVANY LOU MD, Ot Z88.0 ALLERGY STATUS TO PENICILLIN 07/22/2017 JOVANY LOU MD, Ot Z88.1 ALLERGY STATUS TO OTHER ANTIBIOTIC AGENT 07/22/2017 JOVANY LOU MD, Ot Z90.710 ACQUIRED ABSENCE OF BOTH CERVIX AND UTER 07/22/2017 JOVANY LOU MD, Ot Z91.040 LATEX ALLERGY STATUS 08/09/2017 WHIT GANDHI SCORING MACHINE OPERATOR Ot Z12.31 ENCNTR SCREEN MAMMOGRAM FOR MALIGNANT NE 2017 WHIT GANDHI SCORING MACHINE OPERATOR Ot Z12.31 ENCNTR SCREEN MAMMOGRAM FOR MALIGNANT NE 08/17/2017 WHIT GANDHI SCORING MACHINE OPERATOR Ot Z12.31 ENCNTR SCREEN MAMMOGRAM FOR MALIGNANT NE 08/27/2017 WHIT GANDHIP Ot R92.8 OTH ABN AND INCONCLUSIVE FINDINGS ON DX 08/31/2017 WHIT GANDHI SCORING MACHINE OPERATOR Ot R92.1 MAMMOGRAPHIC CALCIFCN FOUND ON DIAGNOSTI 09/07/2017 WHIT GANDHI Ot Z12.31 ENCNTR SCREEN MAMMOGRAM FOR MALIGNANT NE 09/21/2017 WHIT GANDHIP Ot R92.1 MAMMOGRAPHIC CALCIFCN FOUND ON DIAGNOSTI 10/06/2017 GIANNI LIVINGSTON MD Ot E11.9 TYPE 2 DIABETES MELLITUS WITHOUT COMPLIC 10/06/2017 GIANNI LIVINGSTON MD Ot F43.1 0 POST-TRAUMATIC STRESS DISORDER, UNSPECIF 10/06/2017 GIANNI LIVINGSTON MD Ot I10 ESSENTIAL (PRIMARY) HYPERTENSION 10/06/2017 GIANNI LIVINGSTON MD Ot J44.9 CHRONIC OBSTRUCTIVE PULMONARY DISEASE, U 10/06/2017 YARA MD, GIANNI A Ot R07.9 CHEST PAIN, UNSPECIFIED 10/26/2017 YARA BOLAND, GIANNI Menendez Ot E11.9 TYPE 2 DIABETES MELLITUS WITHOUT COMPLIC 10/26/2017 YARA BOLAND, GIANNI Menendez Ot F43.1 0 POST-TRAUMATIC STRESS DISORDER, UNSPECIF 10/26/2017 YARA BOLAND, GIANNI Menendez Ot I10 ESSENTIAL (PRIMARY) HYPERTENSION 10/26/2017 YARA BOLAND, GIANNI Menendez Ot J44.9 CHRONIC OBSTRUCTIVE PULMONARY DISEASE, U 10/26/2017 YARA BOLAND, GIANNI Menendez Ot R07.9 CHEST PAIN, UNSPECIFIED 11/18/2017 DASHA BOLAND, JOVANY Bailon Ot E11.40 TYPE 2 DIABETES MELLITUS WITH DIABETIC N 11/18/2017 JOVANY LOU MD Ot E78.00 PURE HYPERCHOLESTEROLEMIA, UNSPECIFIED 11/18/2017 JOVANY LOU MD Ot F17.210 NICOTINE DEPENDENCE, CIGARETTES, UNCOMPL 11/18/2017 JOVANY LOU MD Ot F31.9 BIPOLAR DISORDER, UNSPECIFIED 11/18/2017 JOVANY LOU MD Ot F41.9 ANXIETY DISORDER, UNSPECIFIED 11/18/2017 JOVANY LOU MD Ot F90.9 ATTENTION-DEFICIT HYPERACTIVITY DISORDER 11/18/2017 JOVANY LOU MD Ot G51.0 HERNANDEZ'S PALSY 11/18/2017 JOVANY LOU MD Ot I10 ESSENTIAL (PRIMARY) HYPERTENSION 11/18/2017 JOVANY LOU MD Ot I16.0 HYPERTENSIVE URGENCY 11/18/2017 JOVANY LOU MD Ot J44.9 CHRONIC OBSTRUCTIVE PULMONARY DISEASE, U 11/18/2017 JOVANY LOU MD Ot K21.9 GASTRO-ESOPHAGEAL REFLUX DISEASE WITHOUT 11/18/2017 JOVANY LOU MD Ot M06.9 RHEUMATOID ARTHRITIS, UNSPECIFIED 11/18/2017 JOVANY LOU MD Ot M62.81 MUSCLE WEAKNESS (GENERALIZED) 11/18/2017 JOVANY LOU MD Ot Z79.4 DOUGHNUT MAKER (CURRENT) USE OF INSULIN 11/18/2017 JOVANY LOU MD Ot Z79.51 FDC (CURRENT) USE OF INHALED STERO 11/18/2017 JOVANY LOU MD, Ot Z79.82 DOUGHNUT MAKER (CURRENT) USE OF ASPIRIN 11/18/2017 JOVANY LOU MD, Ot Z87.19 PERSONAL HISTORY OF OTHER DISEASES OF TH 11/18/2017 JOVANY LOU MD, Ot Z87.59 PERSONAL HISTORY OF COMP OF PREG, CHLDBR 11/18/2017 JOVANY LOU MD, Ot Z88.0 ALLERGY STATUS TO PENICILLIN 11/18/2017 JOVANY LOU MD, Ot Z88.8 ALLERGY STATUS TO OTH DRUG/MEDS/BIOL SUB 11/18/2017 JOVANY OLU MD, Ot Z90.710 ACQUIRED ABSENCE OF BOTH CERVIX AND UTER 11/18/2017 JOVANY LOU MD, Ot Z91.040 LATEX ALLERGY STATUS 11/22/2017 JOVANY LOU MD Ot E11.40 TYPE 2 DIABETES MELLITUS WITH DIABETIC N 11/22/2017 JOVANY LOU MD, Ot E78.00 PURE HYPERCHOLESTEROLEMIA, UNSPECIFIED 11/22/2017 JOVANY LOU MD, Ot F17.210 NICOTINE DEPENDENCE, CIGARETTES, UNCOMPL 11/22/2017 JOVANY LOU MD, Ot F31.9 BIPOLAR DISORDER, UNSPECIFIED 11/22/2017 JOVANY LOU MD, Ot F41.9 ANXIETY DISORDER, UNSPECIFIED 11/22/2017 JOVANY LOU MD, Ot F90.9 ATTENTION-DEFICIT HYPERACTIVITY DISORDER 11/22/2017 JOVANY LOU MD Ot G51.0 HERNANDEZ'S PALSY 11/22/2017 JOVANY LOU MD, Ot I10 ESSENTIAL (PRIMARY) HYPERTENSION 11/22/2017 JOVANY LOU MD, Ot I16.0 HYPERTENSIVE URGENCY 11/22/2017 JOVANY LOU MD, Ot J44.9 CHRONIC OBSTRUCTIVE PULMONARY DISEASE, U 11/22/2017 JOVANY LOU MD, Ot K21.9 GASTRO-ESOPHAGEAL REFLUX DISEASE WITHOUT 11/22/2017 JOVANY LOU MD, Ot M06.9 RHEUMATOID ARTHRITIS, UNSPECIFIED 11/22/2017 JOVANY LOU MD, Ot M62.81 MUSCLE WEAKNESS (GENERALIZED) 11/22/2017 JOVANY LOU MD, Ot Z79.4 FDC (CURRENT) USE OF INSULIN 11/22/2017 JOVANY LOU MD, Ot Z79.51 DOUGHNUT MAKER (CURRENT) USE OF INHALED STERO 11/22/2017 JOVANY LOU MD, Ot Z79.82 FDC (CURRENT) USE OF ASPIRIN 11/22/2017 JOVANY LOU MD, Ot Z87.19 PERSONAL HISTORY OF OTHER DISEASES OF TH 11/22/2017 JOVANY LOU MD, Ot Z87.59 PERSONAL HISTORY OF COMP OF PREG, CHLDBR 11/22/2017 JOVANY LOU MD, Ot Z88.0 ALLERGY STATUS TO PENICILLIN 11/22/2017 JOVANY LOU MD, Ot Z88.8 ALLERGY STATUS TO OTH DRUG/MEDS/BIOL SUB 11/22/2017 JOVANY LOU MD, Ot Z90.710 ACQUIRED ABSENCE OF BOTH CERVIX AND UTER 11/22/2017 JOVANY LOU MD, Ot Z91.040 LATEX ALLERGY STATUS 01/18/2018 WHIT GANDHI Ot R92.8 OTH ABN AND INCONCLUSIVE FINDINGS ON DX 01/27/2018 PARVIN BOLAND, RICK Lama Ot 530.3 ESOPHAGEAL STRICTURE 01/27/2018 RICK MELENDREZ MD Ot V72.84 EXAM PRE-OPERATIVE NOS 01/27/2018 DEJUAN BOLAND, WAYLON Faye Ot 724.4 LUMBOSACRAL NEURITIS NOS 01/27/2018 VALENTIN ARTEAGA DO Ot E11. 9 TYPE 2 DIABETES MELLITUS WITHOUT COMPLIC 01/27/2018 VALENTIN ARTEAGA DO Ot K29. 70 GASTRITIS, UNSPECIFIED, WITHOUT BLEEDING 01/27/2018 VALENTIN ARTEAGA DO Ot K59. 00 CONSTIPATION, UNSPECIFIED 01/27/2018 VALENTIN ARTEAGA DO Ot R19. 7 DIARRHEA, UNSPECIFIED 01/27/2018 LEO WALTON MD Ot E11. 9 TYPE 2 DIABETES MELLITUS WITHOUT COMPLIC 01/27/2018 LEO WALTON MD Ot F43. 10 POST-TRAUMATIC STRESS DISORDER, UNSPECIF 01/27/2018 LEO WALTON MD Ot I10 ESSENTIAL (PRIMARY) HYPERTENSION 01/27/2018 ANTON BOLAND, LEO Faye Ot J44. 9 CHRONIC OBSTRUCTIVE PULMONARY DISEASE, U 01/27/2018 LEO WALTON MD Ot R07. 9 CHEST PAIN, UNSPECIFIED 01/27/2018 LEO WALTON MD Ot E11. 9 TYPE 2 DIABETES MELLITUS WITHOUT COMPLIC 01/27/2018 LEO WALTON MD Ot F43. 10 POST-TRAUMATIC STRESS DISORDER, UNSPECIF 01/27/2018 LEO WALTON MD Ot I10 ESSENTIAL (PRIMARY) HYPERTENSION 01/27/2018 LEO WALTON MD Ot J44. 9 CHRONIC OBSTRUCTIVE PULMONARY DISEASE, U 01/27/2018 LEO WALTON MD Ot R07. 9 CHEST PAIN, UNSPECIFIED 01/27/2018 WHIT GANDHI Ot Z12.31 ENCNTR SCREEN MAMMOGRAM FOR MALIGNANT NE 01/27/2018 WHIT GANDHI Ot R92.1 MAMMOGRAPHIC CALCIFCN FOUND ON DIAGNOSTI 01/27/2018 GIANNI LIVINGSTON MD Ot E11.9 TYPE 2 DIABETES MELLITUS WITHOUT COMPLIC 01/27/2018 GIANNI LIVINGSTON MD Ot F43.1 0 POST-TRAUMATIC STRESS DISORDER, UNSPECIF 01/27/2018 GIANNI LIVINGSTON MD Ot I10 ESSENTIAL (PRIMARY) HYPERTENSION 01/27/2018 GIANNI LIVINGSTON MD Ot J44.9 CHRONIC OBSTRUCTIVE PULMONARY DISEASE, U 01/27/2018 GIANNI LIVINGSTON MD Ot R07.9 CHEST PAIN, UNSPECIFIED 01/27/2018 WHIT GANDHI Ot R92.8 OTH ABN AND INCONCLUSIVE FINDINGS ON DX 02/01/2018 WHIT GANDHI Ot R92.8 OTH ABN AND INCONCLUSIVE FINDINGS ON DX 02/22/2018 WHIT GANDHI Ot R92.8 OTH ABN AND INCONCLUSIVE FINDINGS ON DX 08/03/2018 WHIT GANDHI Ot 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 9 TYPE 2 DIABETES MELLITUS WITHOUT COMPLIC 06/22/2019 [facility] K29. 70 GASTRITIS, UNSPECIFIED, WITHOUT BLEEDING 06/22/2019 [facility] K59. 00 CONSTIPATION, UNSPECIFIED 06/22/2019 [facility] R19. 7 DIARRHEA, UNSPECIFIED 06/22/2019 LEO WALTON MD Ot E11. 9 TYPE 2 DIABETES MELLITUS WITHOUT COMPLIC 06/22/2019 LEO WALTON MD Ot F43. 10 POST-TRAUMATIC STRESS DISORDER, UNSPECIF 06/22/2019 LEO WALTON MD Ot I10 ESSENTIAL (PRIMARY) HYPERTENSION 06/22/2019 LEO WALTON MD Ot J44. 9 CHRONIC OBSTRUCTIVE PULMONARY DISEASE, U 06/22/2019 LEO WALTON MD Ot R07. 9 CHEST PAIN, UNSPECIFIED 06/22/2019 LEO WALTON MD Ot E11. 9 TYPE 2 DIABETES MELLITUS WITHOUT COMPLIC 06/22/2019 LEO WALTON MD Ot F43. 10 POST-TRAUMATIC STRESS DISORDER, UNSPECIF 06/22/2019 LEO WALTON MD Ot I10 ESSENTIAL (PRIMARY) HYPERTENSION 06/22/2019 LEO WALTON MD, Ot J44. 9 CHRONIC OBSTRUCTIVE PULMONARY DISEASE, U 06/22/2019 LEO WALTON MD Ot R07. 9 CHEST PAIN, UNSPECIFIED 06/22/2019 WHIT GANDHI Ot Z12.31 ENCNTR SCREEN MAMMOGRAM FOR MALIGNANT NE 06/22/2019 WHIT GANDHI Ot R92.1 MAMMOGRAPHIC CALCIFCN FOUND ON DIAGNOSTI 06/22/2019 GIANNI LIVINGSTON MD Ot E11.9 TYPE 2 DIABETES MELLITUS WITHOUT COMPLIC 06/22/2019 GIANNI LIVINGSTON MD Ot F43.1 0 POST-TRAUMATIC STRESS DISORDER, UNSPECIF 06/22/2019 GIANNI LIVINGSTON MD Ot I10 ESSENTIAL (PRIMARY) HYPERTENSION 06/22/2019 GIANNI LIVINGSTON MD Ot J44.9 CHRONIC OBSTRUCTIVE PULMONARY DISEASE, U 06/22/2019 GIANNI LIVINGSTON MD Ot R07.9 CHEST PAIN, UNSPECIFIED 06/22/2019 WHIT GANDHI Ot R92.8 OTH ABN AND INCONCLUSIVE FINDINGS ON DX 06/22/2019 WHIT GANDHI Ot N60.11 DIFFUSE CYSTIC MASTOPATHY OF RIGHT BREAS 06/22/2019 WHIT GANDHI Ot 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 40 TYPE 2 DIABETES MELLITUS WITH DIABETIC N 06/28/2019 VALENTIN ARTEAGA DO Ot E78. 5 HYPERLIPIDEMIA, UNSPECIFIED 06/28/2019 VALENTIN ARTEAGA DO Ot F17.210 NICOTINE DEPENDENCE, CIGARETTES, UNCOMPL 06/28/2019 VALENTIN ARTEAGA DO Ot F31. 9 BIPOLAR DISORDER, UNSPECIFIED 06/28/2019 VALENTIN ARTEAGA DO Ot F41. 9 ANXIETY DISORDER, UNSPECIFIED 06/28/2019 VALENTIN ARTEAGA DO Ot F43. 10 POST-TRAUMATIC STRESS DISORDER, UNSPECIF 06/28/2019 VALENTIN ARTEAGA DO Ot F90. 9 ATTENTION-DEFICIT HYPERACTIVITY DISORDER 06/28/2019 VALENTIN ARTEAGA DO Ot I10 ESSENTIAL (PRIMARY) HYPERTENSION 06/28/2019 VALENTIN ARTEAGA DO Ot I25. 10 ATHSCL HEART DISEASE OF [place] CORONARY 06/28/2019 VALENTIN ARTEAGA DO Ot J44. 9 CHRONIC OBSTRUCTIVE PULMONARY DISEASE, U 06/28/2019 VALENTIN ARTEAGA DO Ot K21. 9 GASTRO-ESOPHAGEAL REFLUX DISEASE WITHOUT 06/28/2019 VALENTIN ARTEAGA DO Ot L98. 8 OTH DISRD OF THE SKIN AND SUBCUTANEOUS T 06/28/2019 VALENTIN ARTEAGA DO Ot M48. 02 SPINAL STENOSIS, CERVICAL REGION 06/28/2019 VALENTIN ARTEAGA DO Ot M48.061 SPINAL STENOSIS, LUMBAR REGION WITHOUT N 06/28/2019 VALENTIN ARTEAGA DO Ot M50. 30 OTHER CERVICAL DISC DEGENERATION, UNSP C 06/28/2019 VALENTIN ARTEAGA DO Ot M51. 36 OTHER INTERVERTEBRAL DISC DEGENERATION, 06/28/2019 VALENTIN ARTEAGA DO Ot M79. 7 FIBROMYALGIA 06/28/2019 MCGREW VALENTIN COURTNEY Ot Z79. 82 DOUGHNUT MAKER (CURRENT) USE OF ASPIRIN 06/28/2019 ARTEAGA VALENTIN COURTNEY Ot Z79. 84 DOUGHNUT MAKER (CURRENT) USE OF ORAL HYPOGLYC 06/28/2019 [facility] Z79.899 OTHER DOUGHNUT MAKER (CURRENT) DRUG THERAPY 06/28/2019 [facility] Z86. 73 PRSNL HX OF TIA (TIA), AND CEREB INFRC W 06/28/2019 [facility] Z88. 1 ALLERGY STATUS TO OTHER ANTIBIOTIC AGENT 06/28/2019 [facility] Z88. 8 ALLERGY STATUS TO OTH DRUG/MEDS/BIOL SUB 06/28/2019 ARTEAGA DOVALENTIN Ot Z90.710 ACQUIRED ABSENCE OF BOTH CERVIX AND UTER 06/28/2019 ARTEAGA DOVALENTIN Ot Z91.040 LATEX ALLERGY STATUS Procedures Code Description [place] [address] [facility]OUT INE VENIPUNCTURE 12/15/2012 37102 A1C (IN-HOUSE) 12/15/2012 13891 [facility] 12/15/2012 [id number] GF R CALC (RESULT ONLY) 12/15/2012 41620 STRE P A (IN-HOUSE) 01/13/2013 62945 A1C (IN-HOUSE) 04/10/2013 Results Test Result Range LIPID PANEL - 01/19/17 08:21 Cholesterol, Total 140 mg/dL 100-199 Triglycerides 47 mg/dL 0-149 HDL Cholesterol 73 mg/dL >39 VLDL Cholesterol Scooby 9 mg/dL 5-40 LDL Cholesterol Calc 58 mg/dL 0-99 [facility] - 01/19/17 08:21 Glucose, Serum 88 mg/dL 65-99 BUN 8 mg/dL 6-24 Creatinine, Serum 0.48 mg/dL 0.57-1.00 eGFR If NonAfricn Am 115 mL/min/1.73 >59 eGFR If Africn Am 132 mL/min/1.73 >5 9 BUN/Creatinine Ratio 17 9-23 Sodium, Serum 136 [...] IU/L 0-40 ALT (SGPT) 26 IU/L 0-32 Complete blood count (CBC) with automate d white blood cell (WBC) differential - 03/12/17 09:16 Blood leukocytes automated count (number/volume) 8.9 10*3/uL 4.3-11.0 Blood erythrocytes automated count (number/volume) 5.00 10*6/uL 4.35-5.85 Venous blood hemoglobin measurement (mass/volume) 15.7 g/dL 11.5-16.0 Blood hematocrit (volume fraction) 45 % 35-52 Automated erythrocyte mean corpuscular volume 89 [ foz_us] 80-99 Automated erythrocyte mean corpuscular h emoglobin (mass per erythrocyte) 31 pg 25-34 Automated erythrocyte mean corpuscular h emoglobin concentration measurement (mass/volume) 35 g/dL 32-36 Automated erythrocyte distribution width ratio 13. 8 % 10.0- 14.5 Automated blood platelet count (count/volume) 266 10*3/uL [...] 10*3 1.0-4.0 Blood monocytes automated count (number/volume) 0. 5 10*3 0.0-1.0 Automated eosinophil count 0.1 10*3/uL 0 .0-0.3 Automated blood basophil count (count/volume) 0.0 10*3/uL 0.0-0.1 PT panel in platelet poor plasma by coag ulation assay - 03/12/17 09:16 Prothrombin time (PT) in platelet poor plasma by coagu lation assay 12.1 s 12.2-14.7 INR in platelet poor plasma or blood by coagulation as say 0.9 0.8-1.4 Activated partial thromboplastin time (a PTT) in platelet poor plasma bycoagulation assay - 03/12/17 09:16 Activated partial thromboplastin time (a PTT) in platelet poor plasma bycoagulation assay 35 s 24-35 Comprehensive metabolic panel - 03/12/17 09:16 Serum or plasma sodium measurement (moles/volume) 130 mmol/L 135-145 Serum or plasma potassium measurement (moles/volume) 4.3 mmol/L 3.6-5.0 Serum or plasma chloride measurement (moles/volume) 95 mmol/L 98-107 Carbon dioxide 23 mmol/L 21-32 Serum or plasma anion gap determination (moles/volume) 12 mmol/L 5-14 Serum or plasma urea nitrogen measurement (mass/volume ) 9 mg/dL 7-18 Serum or plasma creatinine measurement (mass/volume) 0.61 mg/dL 0.60-1.30 Serum or plasma urea nitrogen/creatinine mass ratio 15 NRG Serum or plasma creatinine measurement w ith calculation of estimated glomerular filtration rate > NRG Serum or plasma glucose measurement (mass/volume) 131 mg/dL 70-105 Serum or plasma calcium measurement (mass/volume) 9.7 mg/dL 8.5-10.1 Serum or plasma total bilirubin measurement (mass/volu me) 0.2 mg/dL 0.1-1.0 Serum or plasma alkaline phosphatase funmilayo surement (enzymatic activity/volume) 63 U/L 40-136 Serum or plasma aspartate aminotransfera se measurement (enzymatic activity/volume) 19 U/L 5-34 Serum or plasma alanine aminotransferase measurement (enzymatic activity/volume) 31 U/L 0-55 Serum or plasma protein measurement (mass/volume) 7.1 g/dL 6.4-8.2 Serum or plasma albumin measurement (mass/volume) 4.6 g/dL 3.2-4.5 Magnesium - 03/12/17 09:16 Magnesium 2.0 mg/dL 1.8-2.4 Serum or plasma troponin i.cardiac measu rement (mass/volume) - 03/12/17 09:16 Serum or plasma troponin i.cardiac measurement (mass/v olume) < ng/mL <0.30 Myoglobin, serum - 03/12/17 09:16 Myoglobin, serum 16.9 ng/mL 10.0-92.0 Fibrin D-dimer FEU measurement in platel et poor plasma (mass/volume) - 03/12/17 09:16 Fibrin D-dimer FEU measurement in platelet poor plasma (mass/volume) 0.90 ug/mL 0.00-0.49 Serum or plasma troponin i.cardiac measu rement (mass/volume) - 03/12/17 15:14 Serum or plasma troponin i.cardiac measurement (mass/v olume) < ng/mL <0.30 Serum or plasma troponin i.cardiac measu rement (mass/volume) - 03/12/17 21:17 Serum or plasma troponin i.cardiac measurement (mass/v olume) < ng/mL <0.30 Capillary blood glucose measurement by g lucometer (mass/volume) - 03/12/17 22:18 Capillary blood glucose measurement by glucometer (mas s/volume) 97 mg/dL 70-110 Complete blood count (CBC) with automate d white blood cell (WBC) differential - 03/13/17 03:27 Blood leukocytes automated count (number/volume) 7.7 10*3/uL 4.3-11.0 Blood erythrocytes automated count (number/volume) 4.86 10*6/uL 4.35-5.85 Venous blood hemoglobin measurement (mass/volume) 15.1 g/dL 11.5-16.0 Blood hematocrit (volume fraction) 43 % 35-52 Automated erythrocyte mean corpuscular volume 89 [ foz_us] 80-99 Automated erythrocyte mean corpuscular h emoglobin (mass per erythrocyte) 31 pg 25-34 Automated erythrocyte mean corpuscular h emoglobin concentration measurement (mass/volume) 35 g/dL 32-36 Automated erythrocyte distribution width ratio 13. 8 % 10.0- 14.5 Automated blood platelet count (count/volume) 254 10*3/uL [...] 10*3 1.0-4.0 Blood monocytes automated count (number/volume) 0. 6 10*3 0.0-1.0 Automated eosinophil count 0.2 10*3/uL 0 .0-0.3 Automated blood basophil count (count/volume) 0.1 10*3/uL 0.0-0.1 Lipid 1996 panel - 03/13/17 03:27 Serum or plasma triglyceride measurement (mass/volume) 56 mg/dL <150 Serum or plasma cholesterol measurement (mass/volume) 143 mg/dL < 200 Serum or plasma cholesterol in HDL measurement (mass/v olume) 60 mg/dL 40-60 Cholesterol in LDL [mass/volume] in serum or plasma by direct assay 64 mg/dL 1-129 Serum or plasma cholesterol in VLDL measurement (mass/ volume) 11 mg/dL 5-40 Comprehensive metabolic panel - 03/13/17 03:27 Serum or plasma sodium measurement (moles/volume) 135 mmol/L 135-145 Serum or plasma potassium measurement (moles/volume) 3.9 mmol/L 3.6-5.0 Serum or plasma chloride measurement (moles/volume) 100 mmol/L 98-107 Carbon dioxide 26 mmol/L 21-32 Serum or plasma anion gap determination (moles/volume) 9 mmol/L 5-14 Serum or plasma urea nitrogen measurement (mass/volume ) 9 mg/dL 7-18 Serum or plasma creatinine measurement (mass/volume) 0.56 mg/dL 0.60-1.30 Serum or plasma urea nitrogen/creatinine mass ratio 16 NRG Serum or plasma creatinine measurement w ith calculation of estimated glomerular filtration rate > NRG Serum or plasma glucose measurement (mass/volume) 100 mg/dL 70-105 Serum or plasma calcium measurement (mass/volume) 9.5 mg/dL 8.5-10.1 Serum or plasma total bilirubin measurement (mass/volu me) 0.3 mg/dL 0.1-1.0 Serum or plasma alkaline phosphatase funmilayo surement (enzymatic activity/volume) 60 U/L 40-136 Serum or plasma aspartate aminotransfera se measurement (enzymatic activity/volume) 15 U/L 5-34 Serum or plasma alanine aminotransferase measurement (enzymatic activity/volume) 26 U/L 0-55 Serum or plasma protein measurement (mass/volume) 6.3 g/dL 6.4-8.2 Serum or plasma albumin measurement (mass/volume) 4.3 g/dL 3.2-4.5 Serum or plasma troponin i.cardiac measu rement (mass/volume) - 03/13/17 03:27 Serum or plasma troponin i.cardiac measurement (mass/v olume) < ng/mL <0.30 Capillary blood glucose measurement by g lucometer (mass/volume) - 03/13/17 05:28 Capillary blood glucose measurement by glucometer (mas s/volume) 107 mg/dL 70-110 Complete urinalysis with reflex to cultu re - 07/20/17 09:42 Urine color determination YELLOW NRG Urine clarity determination CLEAR NR G Urine pH measurement by test strip 8 5-9 Specific gravity of urine by test strip 1.015 1.016-1.022 Urine protein assay by test strip, semi-quantitative NEGATIVE NEGATIVE Urine glucose detection by automated test strip NE GATIVE NEGATIVE Erythrocytes detection in urine sediment by light micr oscopy NEGATIVE NEGATIVE Urine ketones detection by automated test strip NE GATIVE NEGATIVE Urine nitrite detection by test strip NEGATIVE NEGATIVE Urine total bilirubin detection by test strip NEGA TIVE NEGATIVE Urine urobilinogen measurement by automated test strip (mass/volume) NORMAL NORMAL Urine leukocyte esterase detection by dipstick NEG ATIVE NEGATIVE Automated urine sediment erythrocyte cou nt by microscopy (number/high power field) RARE NRG Automated urine sediment leukocyte count by microscopy (number/high power field) NONE NRG Bacteria detection in urine sediment by light microsco py NEGATIVE NRG Squamous epithelial cells detection in u rine sediment by light microscopy 5-10 NRG Crystals detection in urine sediment by light microsco py NONE NRG Casts detection in urine sediment by light microscopy NONE NRG Mucus detection in urine sediment by light microscopy NEGATIVE NRG Complete urinalysis with reflex to culture NO NRG Complete blood count (CBC) with automate d white blood cell (WBC) differential - 07/20/17 10:10 Blood leukocytes automated count (number/volume) 9.8 10*3/uL 4.3-11.0 Blood erythrocytes automated count (number/volume) 5.24 10*6/uL 4.35-5.85 Venous blood hemoglobin measurement (mass/volume) 16.7 g/dL 11.5-16.0 Blood hematocrit (volume fraction) 46 % 35-52 Automated erythrocyte mean corpuscular volume 88 [ foz_us] 80-99 Automated erythrocyte mean corpuscular h emoglobin (mass per erythrocyte) 32 pg 25-34 Automated erythrocyte mean corpuscular h emoglobin concentration measurement (mass/volume) 36 g/dL 32-36 Automated erythrocyte distribution width ratio 13. 6 % 10.0- 14.5 Automated blood platelet count (count/volume) 265 10*3/uL [...] 10*3 1.0-4.0 Blood monocytes automated count (number/volume) 0. 5 10*3 0.0-1.0 Automated eosinophil count 0.0 10*3/uL 0 .0-0.3 Automated blood basophil count (count/volume) 0.0 10*3/uL 0.0-0.1 Comprehensive metabolic panel - 07/20/17 10:10 Serum or plasma sodium measurement (moles/volume) 132 mmol/L 135-145 Serum or plasma potassium measurement (moles/volume) 5.6 mmol/L 3.6-5.0 Serum or plasma chloride measurement (moles/volume) 97 mmol/L 98-107 Carbon dioxide 26 mmol/L 21-32 Serum or plasma anion gap determination (moles/volume) 9 mmol/L 5-14 Serum or plasma urea nitrogen measurement (mass/volume ) 8 mg/dL 7-18 Serum or plasma creatinine measurement (mass/volume) 0.60 mg/dL 0.60-1.30 Serum or plasma urea nitrogen/creatinine mass ratio 13 NRG Serum or plasma creatinine measurement w ith calculation of estimated glomerular filtration rate > NRG Serum or plasma glucose measurement (mass/volume) 97 mg/dL 70-105 Serum or plasma calcium measurement (mass/volume) 10.2 mg/dL 8.5-10.1 Serum or plasma total bilirubin measurement (mass/volu me) 0.2 mg/dL 0.1-1.0 Serum or plasma alkaline phosphatase funmilayo surement (enzymatic activity/volume) 56 U/L 40-136 Serum or plasma aspartate aminotransfera se measurement (enzymatic activity/volume) 28 U/L 5-34 Serum or plasma alanine aminotransferase measurement (enzymatic activity/volume) 34 U/L 0-55 Serum or plasma protein measurement (mass/volume) 7.8 g/dL 6.4-8.2 Serum or plasma albumin measurement (mass/volume) 4.9 g/dL 3.2-4.5 Lipase - 07/20/17 10:10 Lipase 25 U/L 8-78 Serum or plasma C reactive protein measu rement (mass/volume) - 07/20/17 10:10 Serum or plasma C reactive protein measurement (mass/v olume) 0.03 mg/dL 0.00-0.50 PDM - 09 PANEL (PROFILE 1) - 09/30/17 15 :59 Prescribed Drug 1 [place](TM) NRG Creatinine 6.8 mg/dL > or = 20.0 pH 6.21 4.5 - 9.0 Oxidant NEGATIVE [...] aOH alprazolam CONSISTENT NRG Alphahydroxymidazolam NEGATIVE ng/mL < 50 medMATCH aOH midazolam CONSISTENT NRG Alphahydroxytriazolam NEGATIVE ng/mL < 50 medMATCH aOH triazolam CONSISTENT NRG Aminoclonazepam NEGATIVE ng/mL <25 medMATCH Aminoclonazepam CONSISTENT NRG Hydroxyethylflurazepam NEGATIVE ng/mL <50 medMATCH [place],Et flurazepam CONSISTENT NR G Lorazepam 668 ng/mL <50 medMATCH Lorazepam CONSISTENT [...] NRG Prescribed Drug 3 Lorazepam NRG Specific [place] 1.003 > or = 1.003 Barbiturates POSITIVE ng/mL <300 Methadone Metabolite NEGATIVE [...] pg/mL <100 Complete blood count (CBC) with automate d white blood cell (WBC) differential - 11/18/17 06:55 Blood leukocytes automated count (number/volume) 8.4 10*3/uL 4.3-11.0 Blood erythrocytes automated count (number/volume) 4.99 10*6/uL 4.35-5.85 Venous blood hemoglobin measurement (mass/volume) 16.1 g/dL 11.5-16.0 Blood hematocrit (volume fraction) 43 % 35-52 Automated erythrocyte mean corpuscular volume 87 [ foz_us] 80-99 Automated erythrocyte mean corpuscular h emoglobin (mass per erythrocyte) 32 pg 25-34 Automated erythrocyte mean corpuscular h emoglobin concentration measurement (mass/volume) 37 g/dL 32-36 Automated erythrocyte distribution width ratio 13. 4 % 10.0- 14.5 Automated blood platelet count (count/volume) 260 10*3/uL [...] 10*3 1.0-4.0 Blood monocytes automated count (number/volume) 0. 8 10*3 0.0-1.0 Automated eosinophil count 0.2 10*3/uL 0 .0-0.3 Automated blood basophil count (count/volume) 0.0 10*3/uL 0.0-0.1 Comprehensive metabolic panel - 11/18/17 06:55 Serum or plasma sodium measurement (moles/volume) 128 mmol/L 135-145 Serum or plasma potassium measurement (moles/volume) 4.3 mmol/L 3.6-5.0 Serum or plasma chloride measurement (moles/volume) 92 mmol/L 98-107 Carbon dioxide 24 mmol/L 21-32 Serum or plasma anion gap determination (moles/volume) 12 mmol/L 5-14 Serum or plasma urea nitrogen measurement (mass/volume ) 8 mg/dL 7-18 Serum or plasma creatinine measurement (mass/volume) 0.60 mg/dL 0.60-1.30 Serum or plasma urea nitrogen/creatinine mass ratio 13 NRG Serum or plasma creatinine measurement w ith calculation of estimated glomerular filtration rate > NRG Serum or plasma glucose measurement (mass/volume) 87 mg/dL 70-105 Serum or plasma calcium measurement (mass/volume) 10.3 mg/dL 8.5-10.1 Serum or plasma total bilirubin measurement (mass/volu me) 0.4 mg/dL 0.1-1.0 Serum or plasma alkaline phosphatase funmilayo surement (enzymatic activity/volume) 55 U/L 40-136 Serum or plasma aspartate aminotransfera se measurement (enzymatic activity/volume) 21 U/L 5-34 Serum or plasma alanine aminotransferase measurement (enzymatic activity/volume) 34 U/L 0-55 Serum or plasma protein measurement (mass/volume) 7.2 g/dL 6.4-8.2 Serum or plasma albumin measurement (mass/volume) 4.8 g/dL 3.2-4.5 Serum or plasma troponin i.cardiac measu rement (mass/volume) - 11/18/17 06:55 Serum or plasma troponin i.cardiac measurement (mass/v olume) < ng/mL <0.30 PT panel in platelet poor plasma by coag ulation assay - 11/18/17 06:55 Prothrombin time (PT) in platelet poor plasma by coagu lation assay 12.2 s 12.2-14.7 INR in platelet poor plasma or blood by coagulation as say 0.9 0.8-1.4 Activated partial thromboplastin time (a PTT) in platelet poor plasma bycoagulation assay - 11/18/17 06:55 Activated partial thromboplastin time (a PTT) in platelet poor plasma bycoagulation assay 38 s 24-35 Fibrin D-dimer FEU measurement in platel et poor plasma (mass/volume) - 11/18/17 06:55 Fibrin D-dimer FEU measurement in platelet poor plasma (mass/volume) 0.69 ug/mL 0.00-0.49 Capillary blood glucose measurement by g lucometer (mass/volume) - 11/18/17 07:16 Capillary blood glucose measurement by glucometer (mas s/volume) 96 mg/dL 70-110 BMP - 02/18/18 12:40 GLUCOSE 129 mg/dL 65-99 UREA NITROGEN (BUN) 17 mg/dL 7-25 CREATININE 0.67 mg/dL 0.50-1.05 eGFR NON-AFR. [place] 102 mL/min/1.73m2 > OR = 60 eGFR 118 mL/min/1.73m2 > OR = 60 BUN/CREATININE RATIO NOT APPLICABLE (calc) 6-22 SODIUM 136 mmol/L 135-146 POTASSIUM 4.6 mmol/L 3.5-5.3 CHLORIDE 103 mmol/L 98-110 CARBON DIOXIDE 25 mmol/L 20-32 CALCIUM 8.4 mg/dL 8.6-10.4 LIPID PANEL - 03/16/19 16:52 CHOLESTEROL, TOTAL 154 mg/dL <200 HDL CHOLESTEROL 69 mg/dL >50 TRIGLYCERIDES 85 mg/dL <150 LDL-CHOLESTEROL 68 mg/dL (calc) NRG CHOL/HDLC RATIO 2.2 (calc) <5.0 NON HDL CHOLESTEROL 85 mg/dL (calc) <130 CMP - 03/16/19 16:52 GLUCOSE 113 mg/dL 65-99 UREA NITROGEN (BUN) 11 mg/dL 7-25 CREATININE 0.48 mg/dL 0.50-1.05 eGFR NON-AFR. SAM[place] 113 mL/min/1.73m2 > OR = 60 eGFR 131 mL/min/1.73m2 > OR = 60 BUN/CREATININE RATIO 23 (calc) 6-22 SODIUM 123 mmol/L 135-146 POTASSIUM 4.3 mmol/L 3.5-5.3 CHLORIDE 86 mmol/L 98-110 CARBON DIOXIDE 29 mmol/L 20-32 CALCIUM 10.1 mg/dL 8.6-10.4 PROTEIN, TOTAL 7.1 g/dL 6.1-8.1 ALBUMIN 5.0 g/dL 3.6-5.1 GLOBULIN 2.1 g/dL (calc) 1.9-3.7 ALBUMIN/GLOBULIN RATIO 2.4 (calc) 1.0-2. 5 BILIRUBIN, TOTAL 0.3 mg/dL 0.2-1.2 ALKALINE PHOSPHATASE 53 U/L 33-130 AST 23 U/L 10-35 ALT 20 U/L 6-29 CBC - 03/16/19 16:52 WHITE BLOOD CELL COUNT 9.2 Thousand/uL 3 .8-10.8 RED BLOOD CELL COUNT 4.72 Million/uL 3.8 0-5.10 HEMOGLOBIN 14.6 g/dL 11.7-15.5 HEMATOCRIT 42.8 % 35.0-45.0 MCV 90.7 fL 80.0-100.0 MCH 30.9 pg 27.0-33.0 MCHC 34.1 g/dL 32.0-36.0 RDW 11.8 % 11.0-15.0 PLATELET COUNT 303 Thousand/uL 140-400 MPV 10.1 fL 7.5-12.5 ABSOLUTE NEUTROPHILS 5456 cells/uL 1500- 7800 ABSOLUTE LYMPHOCYTES 3054 cells/uL 850-3 900 ABSOLUTE MONOCYTES 543 cells/uL 200-950 ABSOLUTE EOSINOPHILS 101 cells/uL 15-500 ABSOLUTE BASOPHILS 46 cells/uL 0-200 NEUTROPHILS 59.3 % NRG LYMPHOCYTES 33.2 % NRG MONOCYTES 5.9 % NRG EOSINOPHILS 1.1 % NRG BASOPHILS 0.5 % NRG TSH - 03/16/19 16:52 TSH 2.23 mIU/L NRG Capillary blood glucose measurement by g lucometer (mass/volume) - 06/22/19 09:58 Capillary blood glucose measurement by glucometer (mas s/volume) 83 mg/dL 70-110 Methicillin resistant Staphylococcus aur eus (MRSA) screening culture - 06/22/19 10:00 Methicillin resistant Staphylococcus aureus (MRSA) scr eening culture NEG NRG Capillary blood glucose measurement by g lucometer (mass/volume) - 06/22/19 11:59 Capillary blood glucose measurement by glucometer (mas s/volume) 84 mg/dL 70-110 Encounters ACCT No. Visit Date/Time Discharge Status Pt. Type Provider Facility Loc./Unit Complaint [id number] 07/13/2019 15:40:00 07/13/2019 23:59: 59 CLS Outpatient WHIT GANDHI APRN [facility] [id number] 03/16/2019 16:00:00 Document Registration [id number] 02/18/2018 13:40:00 Document Registration [id number] 11/04/2017 15:40:00 Document Registration [id number] 09/30/2017 15:20:00 Document Registration [id number] 01/19/2017 08:00:00 Document Registration [id number] 07/06/2013 14:50:00 07/06/2013 23:59: 59 CLS Outpatient JAKI MEDINA MD [id number] 04/10/2013 15:56:00 04/10/2013 23:59: 59 CLS Outpatient JAKI MEDINA MD [id number] 04/10/2013 15:56:00 04/10/2013 23:59: 59 CLS Outpatient JAKI MEDINA MD [id number] 03/09/2013 11:00:00 03/09/2013 23:59: 59 CLS Outpatient JAKI MEDINA MD [id number] 01/13/2013 15:32:00 01/13/2013 23:59: 59 CLS Outpatient SOFIA PARKS DO [id number] 12/15/2012 13:26:00 Document Registration [id number] 07/12/2019 18:02:00 19:25:00 DIS Emergency MORGAN SMYTH [facility] ER WOUND ON LEFT ELBOW [id number] 06/22/2019 08:53:00 15:45:00 DIS Outpatient VALENTIN ARTEAGA DO [facility] SDC LESION LEFT ELBOW [id number] 06/19/2019 05:29:00 15:10:00 DIS Outpatient VALENTIN ARTEAGA DO [facility] PREOP LESION LEFT ELBOW [id number] 08/05/2018 13:08:00 019 23:59:59 CLS Outpatient WHIT GANDHI [facility] RAD DIFFUST CYSTIC MASTOPA THY BILAT [id number] 01/31/2018 12:05:00 018 23:59:59 CLS Outpatient WHIT GANDHI [facility] RAD ABNORMAL MAMMOGRAM OF RIGHT BREAST [id number] 11/18/2017 06:49:00 018 08:49:00 DIS Emergency DASHA BOLAND, JOVANY Bailon [facility] ER CAN'T LIFT RT A RM,NUMB [id number] 10/05/2017 07:28:00 018 23:59:59 CLS Outpatient GIANNI LIVINGSTON MD [facility] LAB J44.9 R07.9 E13.9 I10 F 43.10 [id number] 08/30/2017 13:34:00 018 23:59:59 CLS Outpatient WHIT GANDHI [facility] RAD ABN MAMMO [id number] 08/16/2017 14:37:00 018 23:59:59 CLS Outpatient WHIT GANDHI [facility] RAD FIBROCYSTIC DISEASE [id number] 07/20/2017 08:44:00 018 12:39:00 DIS Emergency DASHA BOLAND, JOVANY Bailon [facility] ER STOMACH CRAMPS [id number] 05/24/2017 07:18:00 018 23:59:59 CLS Outpatient LEO WALTON MD [facility] CARD COPD [id number] 05/15/2017 19:40:00 018 06:31:00 DIS Outpatient JOSÉ OCASIO APRN [facility] SLEEP OBSERVED APNEAS [id number] 04/26/2017 08:36:00 017 23:59:59 CLS Outpatient LEO WALTON MD [facility] CARD COPD,CHEST PAIN [id number] 04/16/2017 15:15:00 017 17:45:00 DIS Outpatient WHIT GANDHI [facility] SLEEP G47.33 OBSTRUCTIVE SLE EP APNEA [id number] 03/12/2017 11:51:00 017 11:37:00 DIS Inpatient ASHISH BOLAND, EDE Menendez [facility] 4TH CHEST PAIN [id number] 03/06/2016 13:01:00 016 14:15:00 DIS Emergency CINTHIA CARABALLO APRN [facility] ER FALL/HEAD INJURY [id number] 11/05/2015 09:39:00 016 23:59:59 CLS Outpatient VALENTIN ARTEAGA DO [facility] SDC SCREENING,REFLEX [id number] 10/31/2015 05:51:00 016 16:00:00 DIS Outpatient VALENTIN ARTEAGA DO [facility] PREOP SCREENING,REFLEX [id number] 06/28/2015 09:53:00 016 14:40:00 DIS Emergency DASHA BOLAND, JOVANY Bailon [facility] ER POSS MED REACTI ON THROAT TONGUE SWELLING [id number] 12/18/2014 04:20:00 015 06:04:00 DIS Emergency JUSTIN LEVINE MD [facility] ER POPPED NECK-HAD NECK SURGERY THIS YEAR [id number] 08/17/2014 13:35:00 015 23:59:59 CLS Outpatient DEJUAN BOLAND, WAYLON Faye [facility] RAD LUMBAR RADICULOPATHY [id number] 03/26/2014 12:10:00 14:22:00 DIS Outpatient TUCKER LESLIE MD [facility] CARD LUMBAR POST LAMINECTOMY SYNDROME [id number] 06/26/2013 07:54:00 014 23:59:59 CLS Outpatient RICK MELENDREZ MD [facility] SDC DYSPHASIA [id number] 06/22/2013 13:15:00 23:59:59 CLS Outpatient RICK MELENDREZ MD [facility] PREOP DYSPHASIA [id number] 07/09/2012 10:17:00 Document Registration [id number] 07/06/2012 06:02:00 Document Registration [id number] 06/30/2012 10:33:00 Document Registration [id number] 09/17/2011 17:53:00 Document Registration [id number] 06/22/2011 14:41:00 Document Registration [id number] 06/11/2011 10:02:00 Document Registration [id number] 03/11/2011 13:34:00 Document Registration [id number] 10/28/2010 08:20:00 Document Registration [id number] 04/29/2010 13:23:00 Document Registration [id number] 06/18/2009 13:00:00 Document Registration
== END 2019-07-12 19:25 | disposition home or self-care (01) ==
LOC: EDUNIT# 17:59 → ER 18:02
DX: T81.31XA Disruption of external operation (surgical) wound, not elsewhere classified, initial encounter (principal); J44.9 Chronic obstructive pulmonary disease, unspecified; I10 Essential (primary) hypertension; E11.40 Type 2 diabetes mellitus with diabetic neuropathy, unspecified; E78.00 Pure hypercholesterolemia, unspecified; K21.9 Gastro-esophageal reflux disease without esophagitis; F41.9 Anxiety disorder, unspecified; F31.9 Bipolar disorder, unspecified; F17.210 Nicotine dependence, cigarettes, uncomplicated; Z86.73 Personal history of transient ischemic attack (TIA), and cerebral infarction without residual deficits; Z88.0 Allergy status to penicillin; Z91.040 Latex allergy status; Z88.1 Allergy status to other antibiotic agents; Z88.8 Allergy status to other drugs, medicaments and biological substances; Z79.82 Long term (current) use of aspirin; Z79.4 Long term (current) use of insulin; Z79.51 Long term (current) use of inhaled steroids
CPT/HCPCS: 99282

== ENCOUNTER 2020-08-19 08:30 | Outpatient (RCR) | payer MEDICARE, MEDICAID ==
[~2020-08-19 08:30] MED LIST changes: +AMLO-250 PO; -AMLO5TAB9 PO; +BUTA-235 PO; -BUTA1TAB9 PO; +CLIN300C12 PO; +CLN.1T PO; -CLON0.1T PO; -MONT10TA26 PO; +MONT10TA32 PO
== END 2020-11-17 | disposition home or self-care (01) ==
LOC: CARD 08:30
PROVIDERS: ATTEND Pediatrics
DX: R00.2 Palpitations (principal)
CPT/HCPCS: 93225; 93226

== ENCOUNTER → 2020-09-23 | Outpatient (CLI) | payer MEDICARE, MEDICAID ==
--- NOTE | 2020-09-23 16:11 | Diagnostic Imaging Report ---
PROCEDURE: MR imaging of the brain without contrast. TECHNIQUE: Multiplanar, multisequence MR imaging of the brain was performed without contrast. INDICATION: Headaches. COMPARISON: CT head on 11/18/2017. FINDINGS: No acute ischemia, mass, or hemorrhage. Scattered chronic microvascular disease is seen in the periventricular and subcortical white matter. Old lacunar infarct is seen in the periventricular white matter of the anterior right frontal lobe. The ventricles, cortical sulci, and basilar cisterns are symmetric and unremarkable. The sellar and suprasellar regions have a normal appearance. The brainstem and posterior fossa are unremarkable. Small mucous retention cysts are seen in the left maxillary sinus. Otherwise, the paranasal sinuses and mastoid air cells demonstrate normal signal characteristics. The globes and orbits are symmetric and unremarkable. The scalp and calvarium have a normal appearance. IMPRESSION: 1. No acute ischemia, mass, or hemorrhage. 2. Old lacunar infarct in the periventricular white matter of the anterior right frontal lobe. 3. Scattered chronic microvascular disease. Dictated by: Dictated on workstation # [id number]
== END ==
LOC: RAD 14:45
PROVIDERS: ATTEND Pediatrics
DX: I69.951 Hemiplegia and hemiparesis following unspecified cerebrovascular disease affecting right dominant side (principal); I67.89 Other cerebrovascular disease
CPT/HCPCS: 70551

== ENCOUNTER 2020-12-30 16:33 | Emergency (ER) | payer MEDICARE, MEDICAID ==
[~2020-12-30] VITALS: Ht 165 cm; Wt 17.3 kg
--- NOTE | 2020-12-30 17:17 | ED Lower Extremity ---
General Chief Complaint: Lower Extremity Stated Complaint: R LEG SWELLING/REDNESS Nursing Triage Note: TO ED PER WALKER FROM DR ROBIN VIVEROS OFFICE. PATIENT REPORTS R LEG STARTED SWELLING. WAS SEEN AT [facility] ON Wed NEG CAREY DR WANTED HER TO COME TO ED FOR REPEAT SONO. LEG SWOLLEN. Source: patient, family Exam Limitations: no limitations (DARINEL TRIMBLE MD) History of Present Illness Date Seen by Provider: Dec 30, 2020 Time Seen by Provider: 16:55 Initial Comments Patient is a 55-year-old female who presents to the emergency department today with a chief complaint of right lower extremity swelling, pain, chest discomfort and shortness of breath. Patient has been having right lower extremity swelling for the last week. She had an ultrasound done at "the clinic" last Wednesday and she states it was negative. Patient followed up with her primary care doctor, Dr. Le today and was sent to the emergency room due to ongoing swelling and discomfort and concern about possibly a false negative ultrasound. Patient states over the course of the last week she has developed intermittent chest discomfort that she describes as sharp and sounds pleuritic. She states she has had increasing shortness of breath as well. No cough, fevers or chills. No Covid concerns. No nausea vomiting or diarrhea. No urinary complaints. She has never had a blood clot before. She is a diabetic and has hypertension. No prolonged immobility or recent travel. No family history of blood clots. She is not on hormone replacement therapy. She is a smoker. She does use inhalers for her breathing. All other review of systems reviewed and negative except as stated. Onset: last week Severity: moderate Pain/Injury Location: right leg, right thigh Method of Injury: unknown Modifying Factors: Worse With Movement (DARINEL TRIMBLE MD) Allergies and Home Medications Allergies Coded Allergies: cefdinir (Verified Allergy, Severe, ANAPHYLAXIS, 06/19/19) diphenhydramine (Verified Allergy, Severe, ANAPHYLAXIS, 06/19/19) propoxyphene napsylate (Unverified Allergy, Severe, ANAPHYLAXIS, 06/19/19) venlafaxine (Verified Allergy, Severe, ANAPHYLAXIS, 06/19/19) latex (Verified Allergy, Intermediate, SWELLING IN HANDS FROM GLOVES, 06/19/19) Penicillins (Verified Allergy, Unknown, 06/19/19) Home Medications Albuterol Sulfate 2.5 Mg/3 Ml Vial.neb, 2.5 MG NEB Q4H PRN for SHORTNESS OF BREATH, (Reported) Albuterol Sulfate 18 Gm Hfa.aer.ad, 2 PUFF INH Q4H PRN for SHORTNESS OF BREATH, (Reported) Amlodipine Besylate 5 Mg Tablet, 5 MG PO DAILY, (Reported) Apixaban 5 Mg Tablet, 5 MG PO BID Prescribed by: ROSMERY DEL REAL on 12/30/201919 Aspirin 81 Mg Tablet.dr, 81 MG PO DAILY Prescribed by: CÉSAR IZQUIERDO on 03/13/17 111 Atorvastatin Calcium 10 Mg Tablet, 10 MG PO HS, (Reported) Baclofen 10 Mg Tablet, 10 MG PO TID, (Reported) Benztropine Mesylate 0.5 Mg Tablet, 0.5 MG PO TID, (Reported) Black Cohosh 540 Mg Capsule, 540 MG PO DAILY, (Reported) Budesonide 90 Mcg Aer.pow.ba, 90 MCG IH BID, (Reported) Buspirone HCl 15 Mg Tablet, 15 MG PO 0800,1500,2100, (Reported) Butalb/Acetaminophen/Caffeine 1 Each Tablet, 1 TAB PO Q6H PRN for HEADACHE, (Reported) Calcium Carbonate/Vitamin D3 1 Each Tablet, 1 TAB PO DAILY, (Reported) Clindamycin HCl 300 Mg Capsule, 300 MG PO Q8H Prescribed by: MORGAN SMYTH on 07/12/191901 Clonidine HCl 0.1 Mg Tablet, 0.1 MG PO 0800,1500,2100, (Reported) Dextroamphetamine/Amphetamine 30 Mg Cap.er.24h, 30 MG PO DAILY, (Reported) Dicyclomine HCl 20 Mg Tablet, 20 MG PO QID, (Reported) Esomeprazole Magnesium 40 Mg Cap, 40 MG PO DAILY, (Reported) Fluticasone Propionate 16 Gm [place].susp, 2 SPRAY NS BID, (Reported) Gabapentin 800 Mg Tablet, 800 MG PO 0800,1500,2100, (Reported) Hydrochlorothiazide 25 Mg Tablet, 25 MG PO DAILY, (Reported) Hydrocodone Bit/Acetaminophen 1 Tab Tab, 1 TAB PO Q4-6HR Prescribed by: VALENTIN ARTEAGA on 06/22/19 1503 Hydrocodone/Acetaminophen 1 Each Tablet, 1 TAB PO TID PRN for PAIN-MODERATE (5- 7), (Reported) Hyoscyamine Sulfate 0.125 Mg Tablet, 0.125 MG PO QID, (Reported) Insulin Detemir 100 Unit/1 Ml Insuln.pen, 7 UNITS SC HS, (Reported) Lamotrigine 100 Mg Tablet, 100 MG PO BID, (Reported) Levalbuterol HCl 0.63 Mg/3 Ml Vial.neb, 0.63 MG INH QID, (Reported) Levalbuterol Tartrate 15 Gm Hfa.aer.ad, 15 GM INH Q4H PRN for SHORTNESS OF BREATH, (Reported) Levocetirizine Dihydrochloride 5 Mg Tablet, 5 MG PO DAILY, (Reported) Lisinopril 30 Mg Tablet, 30 MG PO DAILY, (Reported) Lorazepam 0.5 Mg Tablet, 0.5 MG PO TID, (Reported) Loxapine Succinate 10 Mg Capsule, 10 MG PO BID, (Reported) Lubiprostone 24 Mcg Capsule, 24 MCG PO BID, (Reported) Metformin HCl 1,000 Mg Tablet, 1,000 MG PO BID WITH MEALS, (Reported) Metoprolol Tartrate 50 Mg Tablet, 50 MG PO BID Prescribed by: CÉSAR IZQUIERDO on 03/13/17 1118 Montelukast Sodium 10 Mg Tablet, 10 MG PO HS, (Reported) Multivitamin 1 Each Capsule, 1 EACH PO DAILY, (Reported) [place] 3 Polyunsat Fatty Acids 1,000 Mg Cap, 2,000 MG PO BID, (Reported) Ondansetron HCl 8 Mg Tablet, 8 MG PO BID PRN for NAUSEA/VOMITING, (Reported) Polyethylene Glycol 3350 17 Gm Powd.pack, 17 GM PO DAILY, (Reported) Propranolol HCl 20 Mg Tablet, 20 MG PO BID, (Reported) Pseudoephedrine HCl 60 Mg Tablet, 60 MG PO Q6H PRN for CONGESTION, (Reported) Simethicone 80 Mg Tab.chew, 80 MG PO QID PRN for GAS, (Reported) Tolterodine Tartrate 4 Mg Cap, 4 MG PO DAILY, (Reported) Topiramate 50 Mg Tablet, 50 MG PO BID, (Reported) Topiramate 100 Mg Tablet, 100 MG PO BID, (Reported) Trazodone HCl 100 Mg Tablet, 100 MG PO HS, (Reported) Umeclidinium Brm/Vilanterol Tr 1 Each Blst.w.dev, 1 EACH IH DAILY, (Reported) Patient Home Medication List Home Medication List Reviewed: Yes (DARINEL TRIMBLE MD) Review of Systems Constitutional: see HPI EENTM: no symptoms reported Respiratory: short of breath Cardiovascular: chest pain Gastrointestinal: no symptoms reported Genitourinary: no symptoms reported : No Musculoskeletal: joint swelling, muscle pain, muscle cramps Skin: no symptoms reported Psychiatric/Neurological: No Symptoms Reported (DARINEL TRIMBLE MD) All Other Systems Reviewed Negative Unless Noted: Yes (DARINEL TRIMBLE MD) Past Mtounfd-Plsxfz-Agnbio Hx Patient Social History Tobacco Use?: Yes Tobacco type used: Cigarettes Substance use?: No Pt feels they are or have been: No (DARINEL TRIMBLE MD) Immunizations Up To Date Tetanus Booster (TDap): Unknown First/Initial COVID19 Vaccinat: July COVID19 Vaccination [place]: AUGUST COVID19 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: [employer] (DARINEL TRIMBLE MD) Seasonal Allergies Seasonal Allergies: Yes (DARINEL TRIMBLE MD) Past Medical History Surgeries: Yes (c/s x3, bilat knee scope, breast bx, bilat ankle sx, right foot fx, ) Abdominal, Section, Hysterectomy, Orthopedic Respiratory: Yes Asthma, Chronic Bronchitis, COPD Currently Using CPAP: No Currently Using BIPAP: No Cardiac: Yes High Cholesterol, Hypertension Neurological: Yes (neuropathy hands/feet, fibromyalgia, Hayes's palsy) Neuropathy, Stroke 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: Yes Female 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: Endometriosis [employer] History: Hysterectomy Sexually Transmitted Disease: No HIV/AIDS: No Genitourinary: No Gastrointestinal: Yes (gastritis ) Abdominal Hernia, Gastroesophageal Reflux, Irritable Bowel Musculoskeletal: Yes Degenerate Disk Disease, Osteoporosis, Arthritis, Fibromyalgia, Rheumatoid Arthritis Endocrine: Yes Diabetes, Insulin dep HEENT: Yes (GLASSES) Cataract Loss of Vision: Denies Hearing Impairment: Hard of Hearing Cancer: Yes Skin Psychosocial: Yes ADD/ADHD, Anxiety, Bipolar, Depression Integumentary: No Blood Disorders: No Adverse Reaction/Blood Tranf: No (N/A) (ADRINEL TRIMBLE MD) Family Medical History No Pertinent Family Hx (DARINEL TRIMBLE MD) Physical Exam Vital Signs Vital Signs - First Documented 12/30/20 16:46 Temp 37.0 Pulse 100 Resp 18 B/P (MAP) 114/99 (104) Pulse Ox 96 O2 Delivery Room Air (ROSMERY DEL REAL) Vital Signs Capillary Refill : Less Than 3 Seconds (DARINEL TRIMBLE MD) Height, Weight, BMI Height: 5'4.00" Weight: 110lbs. 0.0oz. 49.643249pu; 6.00 BMI Method:Stated General Appearance: WD/WN, no apparent distress HEENT: PERRL/EOMI Neck: normal inspection Cardiovascular: regular rate, rhythm Respiratory: lungs clear, normal breath sounds, no respiratory distress, no accessory muscle use Gastrointestinal: normal bowel sounds, non tender, soft Hips: bilateral hip non-tender, bilateral hip normal inspection, bilateral hip normal range of motion, bilateral hip no evidence of injury Legs: left leg non-tender, left leg normal inspection, left leg normal range of motion, left leg no evidence of injury; right leg pain, right leg swelling Knees: bilateral knee non-tender, bilateral knee normal inspection, bilateral knee normal range of motion, bilateral knee no evidence of injury Ankles: left ankle non-tender, left ankle normal inspection, left ankle normal range of motion, left ankle no evidence of injury; right ankle swelling Feet: left foot non-tender, left foot normal inspection, left foot normal range of motion, left foot no evidence of injury; right foot swelling Neurologic/Psychiatric: alert, normal mood/affect, oriented x 3 Skin: normal color, warm/dry (DARINEL TRIMBLE MD) Progress/Results/Core Measures Results/Orders Lab Results Laboratory Tests Test 12/30/20 17:34 Range/Units White Blood Count 9.3 4.3-11.0 10^3/uL Red Blood Count 4.48 3.80-5.11 10^6/uL Hemoglobin 12.3 11.5-16.0 g/dL Hematocrit 40 35-52 % Mean Corpuscular Volume 88 80-99 fL Mean Corpuscular Hemoglobin 28 25-34 pg Mean Corpuscular Hemoglobin Concent 31 L 32-36 g/dL Red Cell Distribution Width 17.8 H 10.0-14.5 % Platelet Count 330 130-400 10^3/uL Mean Platelet Volume 10.0 9.0-12.2 fL Immature Granulocyte % (Auto) 0 % Neutrophils (%) (Auto) 71 42-75 % Lymphocytes (%) (Auto) 20 12-44 % Monocytes (%) (Auto) 7 0-12 % Eosinophils (%) (Auto) 2 0-10 % Basophils (%) (Auto) 1 0-10 % Neutrophils # (Auto) 6.6 1.8-7.8 10^3/uL Lymphocytes # (Auto) 1.8 1.0-4.0 10^3/uL Monocytes # (Auto) 0.6 0.0-1.0 10^3/uL Eosinophils # (Auto) 0.2 0.0-0.3 10^3/uL Basophils # (Auto) 0.1 0.0-0.1 10^3/uL Immature Granulocyte # (Auto) 0.0 0.0-0.1 10^3/uL Prothrombin Time 12.4 12.2-14.7 SEC INR Comment 0.9 0.8-1.4 Activated Partial Thromboplast Time 40 H 24-35 SEC D-Dimer 2.08 H 0.00-0.49 UG/ML Sodium Level 138 135-145 MMOL/L Potassium Level 4.0 3.6-5.0 MMOL/L Chloride Level 107 98-107 MMOL/L Carbon Dioxide Level 21 21-32 MMOL/L Anion Gap 10 5-14 MMOL/L Blood Urea Nitrogen 10 7-18 MG/DL Creatinine 0.68 0.60-1.30 MG/DL Estimat Glomerular Filtration Rate 90 BUN/Creatinine Ratio 15 Glucose Level 133 H 70-105 MG/DL Calcium Level 9.4 8.5-10.1 MG/DL Corrected Calcium 9.4 8.5-10.1 MG/DL Total Bilirubin 0.2 0.1-1.0 MG/DL Aspartate Amino Transf (AST/SGOT) 15 5-34 U/L Alanine Aminotransferase (ALT/SGPT) 21 0-55 U/L Alkaline Phosphatase 84 40-136 U/L Total Protein 6.7 6.4-8.2 GM/DL Albumin 4.0 3.2-4.5 GM/DL (ROSMERY DEL REAL) My Orders Orders - ROSMERY DEL REAL Apixaban Tablet (Eliquis Tablet) (12/30/20 19:30) (ROSMERY DEL REAL) Medications Given in ED Current Medications Medications Dose Ordered Sig/Brice Route Start Time Stop Time Status Last Admin Dose Admin Iohexol 100 ml ONCE ONCE IV 12/30/20 18:45 12/30/20 18:46 DC 12/30/20 18:33 75 ML Sodium Chloride 100 ml ONCE ONCE IV 12/30/20 18:45 12/30/20 18:46 DC 12/30/20 18:33 80 ML (ROSMERY DEL REAL) Vital Signs/I&O 12/30/20 12/30/20 16:46 18:39 Temp 37.0 Pulse 100 99 Resp 18 18 B/P (MAP) 114/99 (104) 143/79 (100) Pulse Ox 96 96 O2 Delivery Room Air Room Air (ROSMERY DEL REAL) Blood Pressure Mean: 104 Progress Progress Note : Time: 18:04 Progress Note Patient to CT for CTA angio of chest (DARINEL TRIMBLE MD) Progress Note : Time: 18:50 Progress Note Assumed care of the patient at shift change. She is had no material deterioration during her ER stay. She has a good oxygenation. Her chest pain sounds pleuritic. Her CT does not demonstrate PEs. We discussed the solitary solid 6 mm nodule in her lung and 6-month follow-up with primary care. We will put her out on Eliquis and set up for an outpatient ultrasound of her veins of the right lower leg. (ROSMERY DEL REAL) Diagnostic Imaging Diagonstic Imaging: Xray, CT Plain Films/CT/US/NM/MRI: chest Comments NAME: VERONICA RODRIGUEZ [facility] REC#: [id number] PT STATUS: REG ER : 1965 PHYSICIAN: DARINEL TRIMBLE MD ADMIT DATE: 12/30/20/ER Draft Date of Exam:12/30/20 CHEST 1 VIEW, AP/PA ONLY EXAM: CHEST 1 VIEW, AP/PA ONLY INDICATION: Chest pain. Shortness of breath. COMPARISON: Chest radiograph 11/18/2017. FINDINGS: Normal heart size and central pulmonary vascularity. Calcified aorta. No focal pulmonary opacity. No pleural effusion or pneumothorax. No acute osseous findings. IMPRESSION: No acute cardiopulmonary findings. Dictated on workstation # [id number] Dict: 12/30/201806 Trans: 12/30/201808 BREN [id number] Interpreted by: MATTIE CARSON MD Electronically signed by: (DARINEL TRIMBLE MD) Diagonstic Imaging: CT Plain Films/CT/US/NM/MRI: chest Comments [facility] [place] [place] NAME: VERONICA RODRIGUEZ [facility] REC#: [id number] PT STATUS: REG ER : 1965 PHYSICIAN: DARINEL TRIMBLE MD ADMIT DATE: 12/30/20/ER Draft Date of Exam:12/30/20 CT ANGIO CHEST W PROCEDURE: CT angiography of the chest with contrast. TECHNIQUE: Multiple contiguous axial images were obtained through the chest after uneventful bolus administration of intravenous contrast. 3D reconstructed CTA MIP acquisitions were also performed. Auto Exposure Controls were utilized during the CT exam to meet ALARA standards for radiation dose reduction. INDICATION: Chest pain. Shortness of breath. Leg swelling. COMPARISON: Chest radiograph 12/30/2020. CTA chest 03/12/2017. FINDINGS: No pulmonary artery filling defects. Normal caliber thoracic aorta without evidence of aneurysm or dissection. Normal heart size. No pericardial effusion. No lymphadenopathy. Moderate to advanced emphysematous changes in the lungs. A 0.6 cm solid pulmonary nodule in the right lung base along the diaphragm posteriorly. Scattered linear atelectasis and/or scarring in the lung bases. No pleural effusion or pneumothorax. No acute osseous findings. Benign lipoma overlying the left chest wall measures up to 5.4 cm is similar to the prior exam. Stable nodular thickening of the left adrenal gland. IMPRESSION: 1. No pulmonary emboli. No thoracic aortic aneurysm dissection. 2. A 0.6 cm solid pulmonary nodule in the right lung base along the diaphragm. This is new since 03/12/2017. Recommend follow-up with noncontrast chest CT in 6 months. 3. Moderate to severe emphysematous changes are greatest in the lung apices. Dictated on workstation # [id number] Dict: 12/30/20 183 Trans: 12/30/201838 BREN [id number] Interpreted by: MATTIE CARSON MD Electronically signed by: Reviewed: Reviewed by Me (ROSMERY DEL REAL) Departure Impression Primary Impression: Suspected DVT (deep vein thrombosis) Additional Impressions: Pleuritic chest pain Pulmonary nodule, right Disposition: 01 HOME, SELF-CARE Condition: Stable Departure-Patient Inst. Decision time for Depature: 19:18 (ROSMERY DEL REAL) Referrals: EDE LE MD (PCP/Family) Primary Care Physician Patient Instructions: Deep Vein Thrombosis (Blood Clots in the Legs) (DC), Pleuritic Chest Pain ED Add. Discharge Instructions: Globin did not find any clots in your lungs and I suspect that your chest pain is pleuritic in nature we are still going to investigate the pain and redness in your leg with an ultrasound to look for blood clots. You may call the number on the top of the order sheet and set up an appointment to do ultrasound over the next couple days. In the meanwhile continue taking the blood thinners, Eliquis 1 tablet twice a day until you meet with your doctor to get the results of your ultrasound. If you have crushing chest pain, inability to catch your breath even while at rest or other worrisome symptoms then I highly recommend you return to the nearest ER. Follow-up with your primary care doctor in 6 months to have a repeat CT of the chest to evaluate the size of the right lung nodule seen on today's CT. All discharge instructions reviewed with patient and/or family. Voiced understanding. Scripts Apixaban (Eliquis) 5 Mg Tablet 5 MG PO BID for 14 Days, #28 TAB 0 Refills Prov: ROSMERY DEL REAL 12/30/20 Copy Copies To 1: EDE LE MD, KATHRYN M MD Dec 30, 2020 17:17 ROSMERY DEL REAL Dec 30, 2020 18:50
[2020-12-30 17:45] LABS: BASOPHILS # (AUTO) 0.1 10^3/uL (0.0-0.1); BASOPHILS % (AUTO) 1 % (0-10); EOSINOPHILS # (AUTO) 0.2 10^3/uL (0.0-0.3); EOSINOPHILS % (AUTO) 2 % (0-10); HEMATOCRIT 40 % (35-52); HEMOGLOBIN 12.3 g/dL (11.5-16.0); LYMPHOCYTES # (AUTO) 1.8 10^3/uL (1.0-4.0); LYMPHOCYTES % (AUTO) 20 % (12-44); MEAN CORPUSCULAR HEMOGLOBIN 28 pg (25-34); MEAN CORPUSCULAR HGB CONC 31 g/dL (32-36); MEAN CORPUSCULAR VOLUME 88 fL (80-99); MONOCYTES # (AUTO) 0.6 10^3/uL (0.0-1.0); MONOCYTES % (AUTO) 7 % (0-12); NEUTROPHILS # (AUTO) 6.6 10^3/uL (1.8-7.8); NEUTROPHILS % (AUTO) 71 % (42-75); PLATELET COUNT 330 10^3/uL (130-400); WHITE BLOOD COUNT 9.3 10^3/uL (4.3-11.0)
[2020-12-30 17:53] LABS: CALCIUM 9.4 MG/DL (8.5-10.1)
[2020-12-30 17:55] LABS: TOTAL PROTEIN 6.7 GM/DL (6.4-8.2)
[2020-12-30 17:56] LABS: BILIRUBIN,TOTAL 0.2 MG/DL (0.1-1.0)
[2020-12-30 17:58] LABS: CREATININE SERUM 0.68 MG/DL (0.60-1.30)
[2020-12-30 18:02] LABS: FIBRIN DEGRADATION PRODUCTS 2.08 UG/ML (0.00-0.49); INR 0.9 (0.8-1.4); PROTHROMBIN TIME PATIENT 12.4 SEC (12.2-14.7)
--- NOTE | 2020-12-30 18:10 | Diagnostic Imaging Report ---
EXAM: CHEST 1 VIEW, AP/PA ONLY INDICATION: Chest pain. Shortness of breath. COMPARISON: Chest radiograph 11/18/2017. FINDINGS: Normal heart size and central pulmonary vascularity. Calcified aorta. No focal pulmonary opacity. No pleural effusion or pneumothorax. No acute osseous findings. IMPRESSION: No acute cardiopulmonary findings. Dictated by: Dictated on workstation # [id number]
--- NOTE | 2020-12-30 18:39 | Diagnostic Imaging Report ---
PROCEDURE: CT angiography of the chest with contrast. TECHNIQUE: Multiple contiguous axial images were obtained through the chest after uneventful bolus administration of intravenous contrast. 3D reconstructed CTA MIP acquisitions were also performed. Auto Exposure Controls were utilized during the CT exam to meet ALARA standards for radiation dose reduction. INDICATION: Chest pain. Shortness of breath. Leg swelling. COMPARISON: Chest radiograph 12/30/2020. CTA chest 03/12/2017. FINDINGS: No pulmonary artery filling defects. Normal caliber thoracic aorta without evidence of aneurysm or dissection. Normal heart size. No pericardial effusion. No lymphadenopathy. Moderate to advanced emphysematous changes in the lungs. A 0.6 cm solid pulmonary nodule in the right lung base along the diaphragm posteriorly. Scattered linear atelectasis and/or scarring in the lung bases. No pleural effusion or pneumothorax. No acute osseous findings. Benign lipoma overlying the left chest wall measures up to 5.4 cm is similar to the prior exam. Stable nodular thickening of the left adrenal gland. IMPRESSION: 1. No pulmonary emboli. No thoracic aortic aneurysm dissection. 2. A 0.6 cm solid pulmonary nodule in the right lung base along the diaphragm. This is new since 03/12/2017. Recommend follow-up with noncontrast chest CT in 6 months. 3. Moderate to severe emphysematous changes are greatest in the lung apices. Dictated by: Dictated on workstation # [id number]
[2020-12-30] MEDS ORDERED: IOHEXOL 350 MG/ML 100 ML (OMNIPAQUE 350) VIAL IV ONE (18:45)
[2020-12-30] MEDS ORDERED: NS 100 ML (IVPB) BAG IV ONE (18:45)
[2020-12-30] MEDS ORDERED: HOLD METFORMIN - RECEIVED CONTRAST 20 ML VIAL IV SCH (18:45)
[2020-12-30] MEDS ORDERED: APIX5TAB PO (19:20)
[2020-12-30] MEDS ORDERED: APIXABAN 5 MG (ELIQUIS) TABLET PO ONE (19:30)
[2020-12-30 19:31] VITALS: BP 135/93
== END 2020-12-30 19:32 | disposition home or self-care (01) ==
LOC: EDUNIT# 16:33 → ER 16:35
DX: R07.81 Pleurodynia (principal); R91.1 Solitary pulmonary nodule; I10 Essential (primary) hypertension; J44.9 Chronic obstructive pulmonary disease, unspecified; K21.9 Gastro-esophageal reflux disease without esophagitis; F41.9 Anxiety disorder, unspecified; F31.9 Bipolar disorder, unspecified; E11.9 Type 2 diabetes mellitus without complications; E78.00 Pure hypercholesterolemia, unspecified; F17.210 Nicotine dependence, cigarettes, uncomplicated; Z86.73 Personal history of transient ischemic attack (TIA), and cerebral infarction without residual deficits; Z79.01 Long term (current) use of anticoagulants; Z79.82 Long term (current) use of aspirin; Z79.899 Other long term (current) drug therapy; Z79.4 Long term (current) use of insulin
CPT/HCPCS: 36415; 71045; 71275; 80053; 85025; 85379; 85610; 85730; 93005

== ENCOUNTER → 2021-01-02 | Outpatient (CLI) | payer MEDICARE, MEDICAID ==
[~2021-01-02] MED LIST changes: +APIX5TAB PO
--- NOTE | 2021-01-02 14:37 | Diagnostic Imaging Report ---
PROCEDURE: US right lower extremity venous. TECHNIQUE: Multiple real-time grayscale images were obtained over the right lower extremity in various projections. Additional spectral analysis and color Doppler duplex images were also obtained. INDICATION: Leg pain and swelling. EXAMINATION: The deep venous system of the right lower extremity was visualized from the distal common femoral vein to the popliteal vein. FINDINGS: There was good flow and compressibility at all levels and no evidence for a deep venous thrombosis. IMPRESSION: Negative right lower extremity for deep venous thrombosis. Dictated by: Dictated on workstation # [id number]
== END ==
LOC: RAD 14:00
PROVIDERS: ATTEND Emergency Medicine
DX: M79.661 Pain in right lower leg (principal); M79.89 Other specified soft tissue disorders; R79.1 Abnormal coagulation profile

== ENCOUNTER 2021-09-19 15:12 | Outpatient (CLI) | payer MEDICARE, MEDICAID ==
[~2021-09-19 15:12] MED LIST changes: +CLIN-144 PO; -CLIN300C12 PO; +DICY20TA PO; -DICY20TA10 PO; +MONT-40 PO; -MONT10TA32 PO
== END 2021-09-19 15:39 | disposition home or self-care (01) ==
LOC: SLEEP 15:12
PROVIDERS: ATTEND Pediatrics
DX: G47.33 Obstructive sleep apnea (adult) (pediatric) (principal)
CPT/HCPCS: G0399

== ENCOUNTER 2022-01-08 07:12 | Emergency (ER) | payer MEDICARE, MEDICAID ==
[~2022-01-08] VITALS: Ht 165.1 cm; Wt 65.7 kg
[~2022-01-08 07:12] MED LIST changes: +SIMV-333 PO; -SIMV20TA PO
[2022-01-08 07:22] VITALS: BP 150/87
--- NOTE | 2022-01-08 07:30 | ED Neurological Problem ---
General Chief Complaint: Neuro-Stroke Like Symptoms Stated Complaint: STROKE Source: patient Exam Limitations: no limitations History of Present Illness Date Seen by Provider: Jan 08, 2022 Time Seen by Provider: 07:20 Initial Comments 56-year-old female presents via ambulance concerned she may have had another stroke. She last had a stroke in 2018 and does have some right-sided residual deficits with right facial droop, right upper and lower extremity weakness. She is able to ambulate with a cane or other assistive device on a regular basis. She went to bed at 11 PM last night and her last known well time and she woke up at about 545 this morning feeling as though she was "talking on the air." She describes difficulty word finding and feeling strange when talking on the right side of her face. She also has some tingling in her right face as well as some numbness in her right arm which are new symptoms for her. She denies any recent illness to include fevers chills chest pain abdominal pain, change in bowel or bladder habits. No sick contacts. She is on Eliquis. NIH 6 for facial droop, RUE/RLE weakness Allergies and Home Medications Allergies Coded Allergies: cefdinir (Verified Allergy, Severe, ANAPHYLAXIS, 06/19/19) diphenhydramine (Verified Allergy, Severe, ANAPHYLAXIS, 06/19/19) propoxyphene napsylate (Unverified Allergy, Severe, ANAPHYLAXIS, 06/19/19) venlafaxine (Verified Allergy, Severe, ANAPHYLAXIS, 06/19/19) latex (Verified Allergy, Intermediate, SWELLING IN HANDS FROM GLOVES, 06/19/19) Penicillins (Verified Allergy, Unknown, 06/19/19) Patient Home Medication List Home Medication List Reviewed: Yes Albuterol Sulfate (Albuterol Sulfate) 2.5 Mg/3 Ml Vial.neb, 2.5 MG NEB Q4H PRN for SHORTNESS OF BREATH, (Reported) Entered as Reported by: EFRAIN LI on 10/31/15 1553 Albuterol Sulfate (Ventolin Hfa) 18 Gm Hfa.aer.ad, 2 PUFF INH Q4H PRN for SHORTNESS OF BREATH, (Reported) Entered as Reported by: ARABELLA HAND on 03/12/17 1411 Amlodipine Besylate (Amlodipine Besylate) 5 Mg Tablet, 5 MG PO DAILY, (Reported) Entered as Reported by: MARILU ZIEGLER on 06/19/19 135 Apixaban (Eliquis) 5 Mg Tablet, 5 MG PO BID Prescribed by: ROSMERY DEL REAL on 12/30/20 1920 Aspirin (Aspir 81) 81 Mg Tablet.dr, 81 MG PO DAILY Prescribed by: CÉSAR IZQUIERDO on 03/13/17 1118 Atorvastatin Calcium (Atorvastatin Calcium) 10 Mg Tablet, 10 MG PO HS, (Reported) Entered as Reported by: MARILU ZIEGLER on 06/19/19 135 Baclofen (Baclofen) 10 Mg Tablet, 10 MG PO TID, (Reported) Entered as Reported by: MARILU ZIEGLER on 06/19/19 135 Benztropine Mesylate (Benztropine Mesylate) 0.5 Mg Tablet, 0.5 MG PO TID, (Reported) Entered as Reported by: ARABELLA HAND on 03/12/17 141 Black Cohosh (Black Cohosh) 540 Mg Capsule, 540 MG PO DAILY, (Reported) Entered as Reported by: MARILU ZIEGLER on 06/19/19 135 Budesonide (Pulmicort Flexhaler) 90 Mcg Aer.pow.ba, 90 MCG IH BID, (Reported) Entered as Reported by: MARILU ZIEGLER on 06/19/19 135 Buspirone HCl (Buspirone HCl) 15 Mg Tablet, 15 MG PO 0800,1500,2100, (Reported) Entered as Reported by: ARABELLA HAND on 03/12/17 1411 Butalb/Acetaminophen/Caffeine (Nxnols-Gtxcqfbd-Fqzc 50-325-40) 1 Each Tablet, 1 TAB PO Q6H PRN for HEADACHE, (Reported) Entered as Reported by: ARABELLA HAND on 03/12/17 1411 Calcium Carbonate/Vitamin D3 (Calcium 600 + Vit D3 800 Tab) 1 Each Tablet, 1 TAB PO DAILY, (Reported) Entered as Reported by: ARABELLA HAND on 03/12/17 1446 Clindamycin HCl (Clindamycin HCl) 300 Mg Capsule, 300 MG PO Q8H Prescribed by: MORGAN SMYTH on 07/12/19 190 Clonidine HCl (Clonidine HCl) 0.1 Mg Tablet, 0.1 MG PO 0800,1500,2100, (Reported) Entered as Reported by: ARABELLA HAND on 03/12/17 141 Dextroamphetamine/Amphetamine (Adderall Xr 30 mg Capsule) 30 Mg Cap.er.24h, 30 MG PO DAILY, (Reported) Entered as Reported by: MARILU ZIEGLER on 06/19/19 135 Dicyclomine HCl (Dicyclomine HCl) 20 Mg Tablet, 20 MG PO QID, (Reported) Entered as Reported by: ARABELLA HAND on 03/12/17 141 Esomeprazole Magnesium (Nexium) 40 Mg Cap, 40 MG PO DAILY, (Reported) Entered as Reported by: MARILU ZIEGLER on 06/19/19 135 Fluticasone Propionate (Fluticasone Propionate) 16 Gm Steen.susp, 2 SPRAY NS BID, (Reported) Entered as Reported by: ARABELLA HAND on 03/12/17 141 Gabapentin (Gabapentin) 800 Mg Tablet, 800 MG PO 0800,1500,2100, (Reported) Entered as Reported by: ARABELLA HAND on 03/12/17 141 Hydrochlorothiazide (Hydrochlorothiazide) 25 Mg Tablet, 25 MG PO DAILY, (Reported) Entered as Reported by: MARILU ZIEGLER on 06/19/19 135 Hydrocodone Bit/Acetaminophen (Lortab 5 Mg Tablet) 1 Tab Tab, 1 TAB PO Q4-6HR Prescribed by: VALENTIN ARTEAGA on 06/22/19 1503 Hydrocodone/Acetaminophen (Bloomery 7.5-325 Tablet) 1 Each Tablet, 1 TAB PO TID PRN for PAIN-MODERATE (5-7), (Reported) Entered as Reported by: MARILU ZIEGLER on 06/19/19 135 Hyoscyamine Sulfate (Hyoscyamine Sulfate) 0.125 Mg Tablet, 0.125 MG PO QID, (Reported) Entered as Reported by: MARILU ZIEGLER on 06/19/19 135 Insulin Detemir (Levemir Flextouch) 100 Unit/1 Ml Insuln.pen, 7 UNITS SC HS, (Reported) Entered as Reported by: ARABELLA HAND on 03/12/17 1446 Lamotrigine (Lamotrigine) 100 Mg Tablet, 100 MG PO BID, (Reported) Entered as Reported by: ARABELLA HAND on 03/12/17 141 Levalbuterol HCl (Xopenex) 0.63 Mg/3 Ml Vial.neb, 0.63 MG INH QID, (Reported) Entered as Reported by: MARILU ZIEGLER on 06/19/19 135 Levalbuterol Tartrate (Xopenex Hfa) 15 Gm Hfa.aer.ad, 15 GM INH Q4H PRN for SHORTNESS OF BREATH, (Reported) Entered as Reported by: MARILU ZIEGLER on 06/19/19 135 Levocetirizine Dihydrochloride (Levocetirizine Dihydrochloride) 5 Mg Tablet, 5 MG PO DAILY, (Reported) Entered as Reported by: MARILU ZIEGLER on 06/19/19 135 Lisinopril (Lisinopril) 30 Mg Tablet, 30 MG PO DAILY, (Reported) Entered as Reported by: EFRAIN LI on 10/31/15 155 Lorazepam (Ativan) 0.5 Mg Tablet, 0.5 MG PO TID, (Reported) Entered as Reported by: MARILU ZIEGLER on 06/19/19 135 Loxapine Succinate (Loxapine) 10 Mg Capsule, 10 MG PO BID, (Reported) Entered as Reported by: ARABELLA HAND on 03/12/171410 Lubiprostone (Amitiza) 24 Mcg Capsule, 24 MCG PO BID, (Reported) Entered as Reported by: MARILU ZIEGLER on 06/19/19 135 Metformin HCl (Metformin HCl) 1,000 Mg Tablet, 1,000 MG PO BID WITH MEALS, (Reported) Entered as Reported by: EFRAIN LI on 10/31/15 1553 Metoprolol Tartrate (Metoprolol Tartrate) 50 Mg Tablet, 50 MG PO BID Prescribed by: CÉSAR IZQUIERDO on 03/13/17 1118 Montelukast Sodium (Montelukast Sodium) 10 Mg Tablet, 10 MG PO HS, (Reported) Entered as Reported by: ARABELLA HAND on 03/12/171410 Multivitamin (Multivitamins) 1 Each Capsule, 1 EACH PO DAILY, (Reported) Entered as Reported by: MARILU ZIEGLER on 06/19/19 135 Barrett 3 Polyunsat Fatty Acids (Fish Oil 1,000 mg Capsule) 1,000 Mg Cap, 2,000 MG PO BID, (Reported) Entered as Reported by: MARILU ZIEGLER on 06/19/19 135 Ondansetron HCl (Zofran) 8 Mg Tablet, 8 MG PO BID PRN for NAUSEA/VOMITING, (Reported) Entered as Reported by: MARILU ZIEGLER on 06/19/19 135 Polyethylene Glycol 3350 (Miralax) 17 Gm Powd.pack, 17 GM PO DAILY, (Reported) Entered as Reported by: MARILU ZIEGLER on 06/19/191349 Propranolol HCl (Propranolol HCl) 20 Mg Tablet, 20 MG PO BID, (Reported) Entered as Reported by: MARILU ZIEGLER on 06/19/19 135 Pseudoephedrine HCl (Pseudoephedrine HCl) 60 Mg Tablet, 60 MG PO Q6H PRN for CONGESTION, (Reported) Entered as Reported by: MARILU ZIEGLER on 06/19/19 135 Simethicone (Simethicone) 80 Mg Tab.chew, 80 MG PO QID PRN for GAS, (Reported) Entered as Reported by: MARILU ZIEGLER on 06/19/19 135 Tolterodine Tartrate (Detrol LA) 4 Mg Cap, 4 MG PO DAILY, (Reported) Entered as Reported by: MARILU ZIEGLER on 06/19/19 135 Topiramate (Topamax) 50 Mg Tablet, 50 MG PO BID, (Reported) Entered as Reported by: MARILU ZIEGLER on 06/19/19 135 Topiramate (Topamax) 100 Mg Tablet, 100 MG PO BID, (Reported) Entered as Reported by: MARILU ZIEGLER on 06/19/19 135 Trazodone HCl (Trazodone HCl) 100 Mg Tablet, 100 MG PO HS, (Reported) Entered as Reported by: ARABELLA HAND on 03/12/17 1411 Umeclidinium Brm/Vilanterol Tr (Anoro Ellipta 62.5-25 Mcg INH) 1 Each Blst.w.dev, 1 EACH IH DAILY, (Reported) Entered as Reported by: MARILU ZIEGLER on 06/19/19 1350 Review of Systems Review of Systems Constitutional: no symptoms reported Eyes: See HPI Ears, Nose, Mouth, Throat: see HPI Respiratory: see HPI Cardiovascular: see HPI Gastrointestinal: see HPI Genitourinary: see HPI Musculoskeletal: see HPI Skin: see HPI Psychiatric/Neurological: See HPI Endocrine: See HPI Hematologic/Lymphatic: See HPI Past Axbubym-Pmyrms-Iywqic Hx Immunizations Up To Date Tetanus Booster (TDap): Unknown Seasonal Allergies Seasonal Allergies: Yes Past Medical History Surgeries: Yes (c/s x3, bilat knee scope, breast bx, bilat ankle sx, right foot fx, ) Abdominal, Section, Hysterectomy, Orthopedic Respiratory: Yes Asthma, Chronic Bronchitis, COPD Currently Using CPAP: No Currently Using BIPAP: No Cardiac: Yes High Cholesterol, Hypertension Neurological: Yes (neuropathy hands/feet, fibromyalgia, Hayes's palsy) Neuropathy, Stroke 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: Yes Female 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: 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 Sexually Transmitted Disease: No HIV/AIDS: No Genitourinary: No Gastrointestinal: Yes (gastritis ) Abdominal Hernia, Gastroesophageal Reflux, Irritable Bowel Musculoskeletal: Yes Degenerate Disk Disease, Osteoporosis, Arthritis, Fibromyalgia, Rheumatoid Arthritis Endocrine: Yes Diabetes, Insulin dep HEENT: Yes (GLASSES) Cataract Loss of Vision: Denies Hearing Impairment: Hard of Hearing Cancer: Yes Skin Psychosocial: Yes ADD/ADHD, Anxiety, Bipolar, Depression Integumentary: No Blood Disorders: No Adverse Reaction/Blood Tranf: No (N/A) Family Medical History No Pertinent Family Hx Physical Exam Vital Signs Vital Signs - First Documented 01/08/22 07:22 Temp 36.0 Pulse 94 Resp 14 B/P (MAP) 150/87 (108) Pulse Ox 98 O2 Delivery Room Air Capillary Refill : Height, Weight, BMI Height: 5'4.00" Weight: 110lbs. 0.0oz. 49.746819io; 6.00 BMI Method:Stated General Appearance: WD/WN, no apparent distress HEENT: PERRL/EOMI, normal ENT inspection, TMs normal, pharynx normal Neck: non-tender, full range of motion, supple, normal inspection Respiratory: chest non-tender, lungs clear, normal breath sounds, no respiratory distress, no accessory muscle use Cardiovascular: normal peripheral pulses, regular rate, rhythm, no edema, no gallop, no JVD, no murmur Gastrointestinal: normal bowel sounds, non tender, soft, no organomegaly, no pulsatile mass Back: normal inspection, no CVA tenderness, no vertebral tenderness Extremities: normal range of motion, non-tender, normal inspection, no pedal edema, no calf tenderness Neurologic/Psychiatric: other (The patient has significant right-sided facial droop involving the corner of her mouth. No obvious dysarthria. She does have weakness to right upper extremity, 4/5. Weakness of her right lower extremity, 3/5.) Motor/Sensory: weak motor strength RUE, weak motor strength RLE Skin: normal color, warm/dry Lymphatic: no adenopathy NIH 6 for facial droop, right upper and right lower extremity weakness. It is unclear how much of extremity weakness is new. Stroke NIH Stroke Scale Assessment Gaze: Normal (0), Total: Progress/Results/Core Measures Results/Orders Lab Results Laboratory Tests Test 01/08/22 07:27 01/08/22 08:00 01/08/22 08:32 Range/Units Glucometer 104 70-110 MG/DL White Blood Count 11.8 H 4.3-11.0 10^3/uL Red Blood Count 4.84 3.80-5.11 10^6/uL Hemoglobin 12.6 11.5-16.0 g/dL Hematocrit 40 35-52 % Mean Corpuscular Volume 84 80-99 fL Mean Corpuscular Hemoglobin 26 25-34 pg Mean Corpuscular Hemoglobin Concent 31 L 32-36 g/dL Red Cell Distribution Width 18.1 H 10.0-14.5 % Platelet Count 256 130-400 10^3/uL Mean Platelet Volume 10.0 9.0-12.2 fL Immature Granulocyte % (Auto) 0 % Neutrophils (%) (Auto) 74 42-75 % Lymphocytes (%) (Auto) 19 12-44 % Monocytes (%) (Auto) 6 0-12 % Eosinophils (%) (Auto) 1 0-10 % Basophils (%) (Auto) 0 0-10 % Neutrophils # (Auto) 8.7 H 1.8-7.8 10^3/uL Lymphocytes # (Auto) 2.2 1.0-4.0 10^3/uL Monocytes # (Auto) 0.7 0.0-1.0 10^3/uL Eosinophils # (Auto) 0.1 0.0-0.3 10^3/uL Basophils # (Auto) 0.0 0.0-0.1 10^3/uL Immature Granulocyte # (Auto) 0.0 0.0-0.1 10^3/uL Prothrombin Time 12.8 12.2-14.7 SEC INR Comment 0.9 0.8-1.4 Activated Partial Thromboplast Time 39 H 24-35 SEC Sodium Level 138 135-145 MMOL/L Potassium Level 4.2 3.6-5.0 MMOL/L Chloride Level 106 98-107 MMOL/L Carbon Dioxide Level 21 21-32 MMOL/L Anion Gap 11 5-14 MMOL/L Blood Urea Nitrogen 13 7-18 MG/DL Creatinine 0.64 0.60-1.30 MG/DL Estimat Glomerular Filtration Rate 104 BUN/Creatinine Ratio 20 Glucose Level 108 H 70-105 MG/DL Calcium Level 9.4 8.5-10.1 MG/DL Corrected Calcium 9.3 8.5-10.1 MG/DL Total Bilirubin 0.1 0.1-1.0 MG/DL Aspartate Amino Transf (AST/SGOT) 14 5-34 U/L Alanine Aminotransferase (ALT/SGPT) 14 0-55 U/L Alkaline Phosphatase 85 40-136 U/L Troponin I < 0.028 <0.028 NG/ML Total Protein 6.7 6.4-8.2 GM/DL Albumin 4.1 3.2-4.5 GM/DL Urine Color YELLOW Urine Clarity CLEAR Urine pH 6.0 5-9 Urine Specific Fenton <=1.005 1.016-1.022 Urine Protein NEGATIVE NEGATIVE Urine Glucose (UA) NEGATIVE NEGATIVE Urine Ketones NEGATIVE NEGATIVE Urine Nitrite NEGATIVE NEGATIVE Urine Bilirubin NEGATIVE NEGATIVE Urine Urobilinogen 0.2 < = 1.0 MG/DL Urine Leukocyte Esterase NEGATIVE NEGATIVE Urine RBC (Auto) NEGATIVE NEGATIVE Urine RBC NONE /HPF Urine WBC NONE /HPF Urine Squamous Epithelial Cells RARE /HPF Urine Crystals PRESENT H /LPF Urine Calcium Oxalate Crystals RARE H /LPF Urine Bacteria NEGATIVE /HPF Urine Casts NONE /LPF Urine Mucus NEGATIVE /LPF Urine Culture Indicated NO My Orders Orders - TERESO YATES DO Ekg Tracing (01/08/22 07:17) Ct Head Wo-R/O Stroke (01/08/22 ) Cbc With Automated Diff (01/08/22 07:18) Protime With Inr (01/08/22 07:18) Partial Thromboplastin Time (01/08/22 07:18) Comprehensive Metabolic Panel (01/08/22 07:18) Troponin I [place] (01/08/22 07:18) Ua Culture If Indicated (01/08/22 07:18) Chest 1 View, Ap/Pa Only (01/08/22 07:18) Nothing By Mouth (01/08/22 Breakfast) Accucheck Stat ONCE (01/08/22 07:18) Ed Iv/Invasive Line Start (01/08/22 07:18) Ed Iv/Invasive Line Start (01/08/22 07:18) Vital Signs Stroke Patient Q15M (01/08/22 07:18) Intake & Output 06,14,22 (01/08/22 07:18) Monitor-Rhythm Ecg Trace Only (01/08/22 07:18) Dysphagia Screening Tool Q10MX1 (01/08/22 07:18) Ct Angio Head/Neck (01/08/22 07:49) Iohexol Injection (Omnipaque 350 Mg/Ml 1 (01/08/22 08:00) Received Contrast (Hold Metformin- Contr (01/08/22 08:00) Sodium Chloride Flush (Catheter Flush Sy (01/08/22 08:00) Ns (Ivpb) (Sodium Chloride 0.9% Ivpb Bag (01/08/22 08:00) Medications Given in ED Vital Signs/I&O 01/08/22 01/08/22 07:22 10:08 Temp 36.0 Pulse 94 84 Resp 14 B/P (MAP) 150/87 (108) 140/78 (98) Pulse Ox 98 O2 Delivery Room Air Progress Progress Note #1: Time: 08:50 Progress Note Pt stable with no worsening deficits. CT brain, CTA head/neck negative. Not a candidate for thrombolytic therapy due to timing as well as on eliquis. Progress Note #2: Time: 10:10 Progress Note I had spoken with the patient and her and they were agreeable to staying in the hospital for further evaluation per neurology's recommendations. After I came out of another room it was relayed to me that the patient requested to leave. I spoke with her and relayed the dangers of doing so up to and including and permanent disability from an ongoing or developing stroke. She stated understanding and still request to leave. She is alert, oriented and has mental capacity to make her own decisions. She signed out AGAINST MEDICAL ADVICE Diagnostic Imaging Diagonstic Imaging: CT Plain Films/CT/US/NM/MRI: head Comments [facility], [place] NAME: VERONICA RODRIGUEZ [facility] REC#: [id number] PT STATUS: REG ER : 1965 PHYSICIAN: TERESO YATES DO ADMIT DATE: 01/08/22/ER Signed Date of Exam:01/08/22 CT HEAD WO-R/O STROKE PROCEDURE: CT head wo r/o stroke. TECHNIQUE: Multiple contiguous axial images were obtained through the brain without the use of intravenous contrast. Auto Exposure Controls were utilized during the CT exam to meet ALARA standards for radiation dose reduction. INDICATION: 56-year-old female with new onset right-sided weakness suspected CVA Comparisons: MRI brain 09/23/2020 FINDINGS: Midline structures are not displaced. Lateral, 3rd and 4th ventricles are normal in size, shape and anatomic position. There is no mass, mass effect, hydrocephalus or hemorrhage. Allan-white differentiation is normal. There is no sulcal effacement. There are no abnormal extra-axial fluid collections or hemorrhage. There is calcific atherosclerosis in the carotid siphons. There is no hyperdense vascular sign. There are no abnormal extra-axial fluid collections or hemorrhage. Basilar cisterns appear normal. Sinuses, orbits and mastoid air cells are grossly normal. Bone windows show no calvarial changes IMPRESSION: Calcific atherosclerosis is noted in the carotid siphons otherwise unremarkable nonenhanced CT brain. Dictated by: Dictated on workstation # [id number] Dict: 01/08/22726 Trans: 01/08/22729 [facility] [id number] Interpreted by: LINDSEY HANSON MD Electronically signed by: LINDSEY HANSON MD 01/08/22729 Departure Communication (Admissions) Time/Spoke to Consulting Moisesy: 08:55 Spoke to YAW Reyes stroke neurology- recommends admission to our facility to determine new stroke vs other. Impression Primary Impression: Right sided weakness Disposition: 07 AGAINST MEDICAL ADVICE Condition: Stable Departure-Patient Inst. Decision time for Depature: 10:10 Referrals: EDE LE MD (PCP/Family) Primary Care Physician TERESO YATES DO Jan 08, 2022 07:30
[2022-01-08] MEDS ORDERED: HOLD METFORMIN - RECEIVED CONTRAST 20 ML VIAL IV SCH (08:00)
[2022-01-08] MEDS ORDERED: CATHETER FLUSH 10 ML SYR IV PRN (08:00)
[2022-01-08] MEDS ORDERED: NS 100 ML (IVPB) BAG IV ONE (08:00)
[2022-01-08] MEDS ORDERED: IOHEXOL 350 MG/ML 100 ML (OMNIPAQUE 350) VIAL IV ONE (08:00)
[2022-01-08 08:06] LABS: BASOPHILS % (AUTO) 0 % (0-10); EOSINOPHILS # (AUTO) 0.1 10^3/uL (0.0-0.3); EOSINOPHILS % (AUTO) 1 % (0-10); HEMATOCRIT 40 % (35-52); HEMOGLOBIN 12.6 g/dL (11.5-16.0); LYMPHOCYTES # (AUTO) 2.2 10^3/uL (1.0-4.0); LYMPHOCYTES % (AUTO) 19 % (12-44); MEAN CORPUSCULAR HEMOGLOBIN 26 pg (25-34); MEAN CORPUSCULAR HGB CONC 31 g/dL (32-36); MEAN CORPUSCULAR VOLUME 84 fL (80-99); MONOCYTES # (AUTO) 0.7 10^3/uL (0.0-1.0); MONOCYTES % (AUTO) 6 % (0-12); NEUTROPHILS # (AUTO) 8.7 10^3/uL (1.8-7.8); NEUTROPHILS % (AUTO) 74 % (42-75); PLATELET COUNT 256 10^3/uL (130-400); WHITE BLOOD COUNT 11.8 10^3/uL (4.3-11.0)
--- NOTE | 2022-01-08 08:09 | Diagnostic Imaging Report ---
Indication: Altered mental status Portable chest 7:53 AM Heart size and pulmonary vascularity are normal. Lungs are clear. There are no effusions or pneumothoraces. IMPRESSION: No acute abnormalities in the chest Dictated by: Dictated on workstation # [id number]
[2022-01-08 08:29] LABS: ALBUMIN 4.1 GM/DL (3.2-4.5); CHLORIDE 106 MMOL/L (98-107); POTASSIUM 4.2 MMOL/L (3.6-5.0); SODIUM 138 MMOL/L (135-145)
[2022-01-08 08:30] LABS: CALCIUM 9.4 MG/DL (8.5-10.1)
[2022-01-08 08:31] LABS: GLUCOSE 108 MG/DL (70-105); TOTAL PROTEIN 6.7 GM/DL (6.4-8.2)
[2022-01-08 08:32] LABS: CARBON DIOXIDE 21 MMOL/L (21-32); INR 0.9 (0.8-1.4); PROTHROMBIN TIME PATIENT 12.8 SEC (12.2-14.7)
--- NOTE | 2022-01-08 08:32 | Diagnostic Imaging Report ---
PROCEDURE: CT angiography of the head and CT angiography of the neck with and without contrast. TECHNIQUE: Contiguous noncontrast images were obtained from the skull base through the vertex. After intravenous contrast administration, helical CT angiography of the neck was performed. Source data was reformatted into 3D MIP projections. Delayed post contrast acquisition was also obtained. Auto Exposure Controls were utilized during the CT exam to meet ALARA standards for radiation dose reduction. INDICATION: New onset right upper and lower extremity weakness CTA NECK: FINDINGS: There is a normal three-vessel branching pattern arising from the aortic arch. There is no evidence of stenosis or occlusion within the great vessels of the neck. No dissection. There is left convexity curvature of the cervical spine with anterior fusion extending from C4 through C6. There is fracture of the bilateral C6 screws without evidence of malalignment. Note is made of centrilobular emphysema in the visualized lung apices. IMPRESSION: No great vessel abnormality is seen in the neck. Surgical findings are noted in the lower cervical spine with left convexity curvature and associated degenerative findings in the disc spaces. CTA HEAD: Anterior, middle and posterior cerebral arteries are widely patent. There is no filling defect or large vessel occlusion. No significant stenosis is identified. There is no evidence of aneurysm or vascular malformation. IMPRESSION: No CTA evidence of great vessel abnormality within the head. Dictated by: Dictated on workstation # [id number]
[2022-01-08 08:33] LABS: BILIRUBIN,TOTAL 0.1 MG/DL (0.1-1.0)
[2022-01-08 08:35] LABS: ALKALINE PHOSPHATASE 85 U/L (40-136); CREATININE SERUM 0.64 MG/DL (0.60-1.30); GFR ESTIMATED 104
[2022-01-08 08:36] LABS: BUN/CREATININE RATIO 20
[2022-01-08 08:38] LABS: ALANINE AMINOTRANSFERASE 14 U/L (0-55)
[2022-01-08 08:39] LABS: BILIRUBIN,URINE NEGATIVE (NEGATIVE); CLARITY,URINE CLEAR; COLOR,URINE YELLOW; GLUCOSE, URINE (UA) NEGATIVE (NEGATIVE); KETONES,URINE NEGATIVE (NEGATIVE); LEUKOCYTE ESTERASE ,URINE NEGATIVE (NEGATIVE); NITRITE,URINE NEGATIVE (NEGATIVE); PROTEIN,URINE NEGATIVE (NEGATIVE)
[2022-01-08 08:49] LABS: BACTERIA,URINE NEGATIVE /HPF; CALCIUM OXALATE CRYSTALS,UR RARE /LPF; SQUAMOUS EPITHELIAL CELL,UR RARE /HPF
== END 2022-01-08 10:08 | disposition left against medical advice (07) ==
LOC: EDUNIT# 07:12 → ER 07:15
DX: R53.1 Weakness (principal); E11.9 Type 2 diabetes mellitus without complications; Z91.040 Latex allergy status; Z79.4 Long term (current) use of insulin
CPT/HCPCS: 36415; 51701; 70450; 70496; 70498; 71045; 80053; 81000; 82947; 84484; 85025; 85610; 85730; 93005

== ENCOUNTER → 2022-01-23 | Outpatient (CLI) | payer MEDICARE, MEDICAID ==
--- NOTE | 2022-01-23 12:36 | Diagnostic Imaging Report ---
CLINICAL INDICATION: Patient has right-sided weakness and has history of stroke. EXAM: MRI of the brain performed without IV contrast. Sequences include sagittal T1, axial T2, axial flair, axial gradient echo, DWI, ADC map, and axial T1. COMPARISON: CT angiogram of the head/neck dated 01/08/2022. FINDINGS: There is no evidence of acute cerebral infarct, intracranial hemorrhage, or gross mass effect. Stable small chronic infarct involving the right frontal lobe periventricular region. There are other small focal areas of high T2 signal white matter changes involving both cerebral hemispheres and periventricular regions and virginie, likely representing chronic small vessel ischemic disease. The brain parenchymal volume appears appropriate for patient's age. There is normal ramirez-white matter distinction. There is no significant midline shift or herniation. The [place] vascular structures show no gross abnormality as visualized. The pituitary gland, sella, and suprasellar regions are unremarkable as visualized. There is no evidence of hydrocephalus. The basal cisterns are unremarkable. The skull, extracranial soft tissue, and orbits are unremarkable. There is mild mucosal thickening involving the left maxillary sinus. Temporal bones show no significant abnormality. IMPRESSION: 1: There is no evidence of acute intracranial process. There is no intracranial hemorrhage, brain herniation, or midline shift. 2: There is a stable small chronic infarct involving the right frontal lobe periventricular region. 3: Age-related brain parenchymal changes. 4: Mild left maxillary sinus disease. Dictated by: Dictated on workstation # [id number]
== END ==
LOC: RAD 09:00
PROVIDERS: ATTEND Pediatrics
DX: I63.9 Cerebral infarction, unspecified (principal); J32.0 Chronic maxillary sinusitis; G31.89 Other specified degenerative diseases of nervous system
CPT/HCPCS: 70551

== ENCOUNTER 2022-02-05 13:00 | Outpatient (RCR) | payer MEDICARE, MEDICAID | END 2022-02-06 | disposition home or self-care (01) | PROVIDERS: ATTEND Pediatrics | DX: I69.30 Unspecified sequelae of cerebral infarction (principal); I11.9 Hypertensive heart disease without heart failure; J45.909 Unspecified asthma, uncomplicated; E11.9 Type 2 diabetes mellitus without complications ==

== ENCOUNTER → 2022-03-09 | Outpatient (CLI) | payer MEDICARE, MEDICAID ==
[~2022-03-09] MED LIST changes: +ALBU8.5H6 IH; -RT-ALBUINH IH
--- NOTE | 2022-03-09 12:03 | Diagnostic Imaging Report ---
INDICATION: Solitary pulmonary nodule. TECHNIQUE: Serum blood glucose level at the time of injection was 123 mg/dL. Patient was administered 13.4 mCi of F-18 FDG intravenously in the right antecubital location, and PET imaging was performed from the top of the skull to the mid thighs. Noncontrast CT was also performed for attenuation correction and anatomic correlation. COMPARISON: Correlation is made with prior CT angiogram chest study from 12/30/2020. No prior PET/CT study is available for comparison. FINDINGS: There is symmetric activity throughout the brain. Soft tissues of the neck are unremarkable. No mediastinal or hilar hypermetabolism is identified. The 6 mm nodule noted in the posterior right lower lobe appears stable. No hypermetabolism is identified. Abdomen and pelvis demonstrate physiologic activity throughout the gastrointestinal and genitourinary tract. No suspicious area of hypermetabolism is identified. IMPRESSION: Unremarkable PET/CT study. The small subcentimeter nodule in the right lower lobe remains stable and does not show FDG avidity. Continued chest CT follow-up is recommended to confirm stability. Dictated by: Dictated on workstation # [id number]
== END ==
LOC: RAD 09:33
PROVIDERS: ATTEND Pediatrics
DX: R91.1 Solitary pulmonary nodule (principal)
CPT/HCPCS: 78815; A9552

== ENCOUNTER → 2022-07-09 | Outpatient (CLI) | payer MEDICARE, MEDICAID | LOC: CARD 10:05 | PROVIDERS: ATTEND Nurse Practitioner Family | DX: I51.7 Cardiomegaly (principal); J44.9 Chronic obstructive pulmonary disease, unspecified; G47.33 Obstructive sleep apnea (adult) (pediatric) | CPT/HCPCS: 93306 ==

== ENCOUNTER → 2022-07-16 | Outpatient (CLI) | payer MEDICARE, MEDICAID | LOC: RT 10:45 | DX: J44.9 Chronic obstructive pulmonary disease, unspecified (principal) | CPT/HCPCS: 94060; 94726; 94729 ==

== ENCOUNTER → 2022-09-04 | Outpatient (CLI) | payer MEDICARE, MEDICAID ==
[~2022-09-04] MED LIST changes: -INSU100I29 SC; +INSU100I30 SC
--- NOTE | 2022-09-04 16:19 | Diagnostic Imaging Report ---
INDICATION: Lung nodule follow-up. TECHNIQUE: Multiple contiguous axial images were obtained through the chest without the use of intravenous contrast. Auto Exposure Controls were utilized during the CT exam to meet ALARA standards for radiation dose reduction. COMPARISON: Prior chest CT of 12/30/2020 and prior PET study of 03/09/2022. FINDINGS: There is no enlarged mediastinal node. There is no enlarged hilar node. There is no adenopathy in the axillary regions. 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 There is no pleural fluid. Visualized portions of the upper abdomen show no acute finding. Lung parenchymal windows demonstrated mild COPD changes. There is some mild left upper lobe scarring which appears similar to the prior study. There is a new groundglass density in the right apex measuring 1.4 cm. This may represent scar or atypical neoplasm. This is best seen on image 42 of series 3. Nodule in the right lower lobe inferiorly measures about 9 mm, compared about 6 mm on the previous CT study. IMPRESSION: 1. Compared to the previous study of 12/30/2020 and prior PET study of 03/09/2022, there is increase in size of the right lower lobe pulmonary nodule, now measuring about 9 mm compared to 6 mm previously. Slow-growing neoplasm cannot be excluded. 2. There is no change in small area scarring in the left apex. There is an atypical density with groundglass appearance in the right upper lobe posteriorly, which may represent scar or atypical neoplasm, this is not present in the previous study. 3. There are underlying mild emphysematous changes. There is no adenopathy or pleural fluid. Dictated by: Dictated on workstation # [id number]
== END ==
LOC: RAD 09:51
PROVIDERS: ATTEND Nurse Practitioner Family
DX: J44.9 Chronic obstructive pulmonary disease, unspecified (principal); G47.33 Obstructive sleep apnea (adult) (pediatric); R91.1 Solitary pulmonary nodule; F17.200 Nicotine dependence, unspecified, uncomplicated
CPT/HCPCS: 71250

== ENCOUNTER 2022-09-23 06:59 | Day surgery (SDC) | payer MEDICARE, MEDICAID ==
[~2022-09-23] VITALS: Ht 165 cm; Wt 66.4 kg
[~2022-09-23 06:59] MED LIST changes: -CATHETER FLUSH 10 ML SYR IVP PRN; -REGADENOSON 0.4 MG/5 ML SYR (LEXISCAN) IV ONE; -meTOprolol 5 MG/5 ML (LOPRESSOR) VIAL IV ONE; -meTOprolol 5 MG/5 ML (LOPRESSOR) VIAL ONE
[2022-09-23] MEDS ORDERED: LIDOCAINE 1% INJ 20 ML VIAL ONE ×2 (07:06→09:28)
[2022-09-23] MEDS ORDERED: LIDOCAINE 1% INJ 20 ML VIAL INJ ONE (09:30)
[2022-09-23 09:39] VITALS: BP 170/91
== END 2022-09-23 11:27 | disposition home or self-care (01) ==
LOC: CATH 06:59
PROVIDERS: ATTEND Internal Medicine Cardiovascular Disease
DX: I63.9 Cerebral infarction, unspecified (principal); I10 Essential (primary) hypertension; E78.2 Mixed hyperlipidemia; I65.23 Occlusion and stenosis of bilateral carotid arteries; E11.9 Type 2 diabetes mellitus without complications; F17.210 Nicotine dependence, cigarettes, uncomplicated; Z79.84 Long term (current) use of oral hypoglycemic drugs; Z79.899 Other long term (current) drug therapy; Z79.01 Long term (current) use of anticoagulants
CPT/HCPCS: 33285; C1764

== ENCOUNTER → 2022-09-23 | Outpatient (CLI) | payer MEDICARE, MEDICAID ==
[~2022-09-23] MED LIST changes: +CATHETER FLUSH 10 ML SYR IVP PRN; +REGADENOSON 0.4 MG/5 ML SYR (LEXISCAN) IV ONE; +meTOprolol 5 MG/5 ML (LOPRESSOR) VIAL IV ONE; +meTOprolol 5 MG/5 ML (LOPRESSOR) VIAL ONE
[2022-09-23 08:22] VITALS: BP 179/83
--- NOTE | 2022-09-23 10:19 | Implantation of Loop Monitor ---
Implant of Loop Monitior IMPLANTATION OF LOOP MONITOR REPORT DATE OF PROCEDURE: 09/23/22 PREOP DIAGNOSIS: Cryptogenic stroke POSTOP DIAGNOSIS: Cryptogenic stroke PROCEDURE DETAILS: The patient is a 57 female with history of cryptogenic stroke requiring long- term surveillance. Therefore implantable loop recorder was discussed and agreed with the patient. Informed consent was taken. All risks and complications were discussed at length. The patient was draped and prepped in the usual sterile fashion. Local anesthesia was lidocaine, which was given in the substernal area close to the 4th intercostal space. Loop monitor [employer] with serial number [id number] was implanted according to the protocol. Steri-Strips were placed at the end of the procedure. There were no complications and the patient tolerated the procedure well. ANESTHESIA: Local anesthesia with lidocaine. COMPLICATIONS: None CONTRAST/FLUOROSCOPY: None CONCLUSION: Successful implantation of loop monitor with no complication FINAL DIAGNOSIS: Cryptogenic stroke Palpitation APCs Hypertension LEO WALTON MD September 23, 2022 10:19
--- NOTE | 2022-09-23 10:24 | Cardiology Stress Test Report ---
Stress Test Report Date of Procedure/Referring: Date of Procedure: September 23, 2022 PCP Ede Le MD Admitting Physician Admitting Physician: Attending Physician: Leo Walton MD Baseline Heart Rate: 85 Baseline Blood Pressure: Blood Pressure Systolic: 179 Blood Pressure Diastolic: 83 Baseline Vitals Vital Signs Date Time Temp Pulse Resp B/P (MAP) Pulse Ox O2 Delivery O2 Flow Rate FiO2 09/23/22 08:22 120 19 179/83 (115) 99 Room Air Baseline EKG: Baseline EKG: NSR Summary After explaining the procedure to the patient, she signed a consent and then brought to the stress nuclear laboratory. Patient received 0.4 mg Lexiscan for stress test, ECG, heart rate and blood pressure were monitored continuously. Resting and stress dose of radio tracer were injected, imaging was acquired and reviewed in short axis, horizontal long axis and vertical long axis views. TID: 1.05 SSS: 2 SDS: 0 EF: 73 Patient tolerated Lexiscan well No significant ischemia or infarction noted on SPECT images Normal left ventricular size, ejection fraction 73% Copy Copies To 1: EDE LE MD Copies To 2: [facility] [place] LEO WALTON MD September 23, 2022 10:24
== END ==
LOC: CARD 07:03
PROVIDERS: ATTEND Internal Medicine Cardiovascular Disease
DX: I10 Essential (primary) hypertension (principal); I25.10 Atherosclerotic heart disease of native coronary artery without angina pectoris
CPT/HCPCS: 78452; 93017; A9502

== ENCOUNTER → 2022-11-06 | Outpatient (CLI) | payer MEDICARE, MEDICAID ==
[~2022-11-06] MED LIST changes: -BENZ0.5T42 PO; +BENZ0.5T43 PO
[2022-11-06 11:09] LABS: ALBUMIN 4.1 GM/DL (3.2-4.5); POTASSIUM 4.2 MMOL/L (3.6-5.0)
[2022-11-06 11:10] LABS: CALCIUM 9.8 MG/DL (8.5-10.1)
[2022-11-06 11:13] LABS: BILIRUBIN,TOTAL 0.2 MG/DL (0.1-1.0)
[2022-11-06 11:15] LABS: CREATININE SERUM 0.73 MG/DL (0.60-1.30)
[2022-11-06 11:17] LABS: BILIRUBIN,DIRECT 0.1 MG/DL (0.0-0.3); BILIRUBIN,INDIRECT 0.1 MG/DL
== END ==
LOC: LAB 10:36
PROVIDERS: ATTEND Internal Medicine Critical Care Medicine
DX: R91.1 Solitary pulmonary nodule (principal)
CPT/HCPCS: 36415; 80048; 80076; 83880